=== PATIENT | female | born 1980 | race Caucasian/White ===

== ENCOUNTER 2022-11-29 09:16 | Outpatient (OUT) | payer MEDICAID, SELFPAY ==
[2022-11-29 09:48] LABS: Basophils Percent Auto 0.6 % (0.2-2.0); Hematocrit 41.5 % (36.0-48.0); Hemoglobin 13.2 g/dL (12.0-16.0); Immature Granulocytes Abs Auto 0.02 10^3/uL (0.00-0.03); Immature Granulocytes Pct Auto 0.3 % (0.0-0.5); Lymphocytes Absolute Auto 1.5 10^3/uL (1.2-3.8); Lymphocytes Percent Auto 22.6 % (20.5-60.0); Mean Corpuscular HGB Conc 31.8 g/dL (29.9-35.2); Mean Corpuscular Hemoglobin 28.3 pg (26.7-34.0); Mean Corpuscular Volume 88.9 fL (81.0-99.0); Mean Platelet Volume 9.4 fL (9.5-13.5); Monocytes Absolute Auto 0.5 10^3/uL (0.3-0.8); Monocytes Percent Auto 7.4 % (1.7-12.0); Neutrophils Absolute Auto 4.7 10^3/uL (1.4-6.5); Neutrophils Percent Auto 69.1 % (43.0-75.0); Platelet Count 250 10^3/uL (150-450); Red Blood Count 4.67 10^6/uL (4.20-5.40); Red Cell Distribution Width 14.2 % (11.0-15.0); White Blood Count 6.8 10^3/uL (4.0-11.0)
[2022-11-29 10:04] LABS: HCG Qualitative NEGATIVE (NEGATIVE)
[2022-11-29 11:01] LABS: Alanine Aminotransferase 24 U/L (14-59); Albumin Globulin Ratio 0.8; Albumin Level 3.2 g/dL (3.4-5.0); Alkaline Phosphatase 85 U/L (46-116); Aspartate Amino Transferase 18 U/L (15-37); Bilirubin Total 0.4 mg/dL (0.2-1.0); Calcium 9.3 mg/dL (8.5-10.1); Carbon Dioxide 26.9 mmol/L (21.0-32.0); Chloride 104 mmol/L (98-107); Chol HDL Ratio 4.3; Cholesterol 166 mg/dL (<=200); Estimated GFR (African America >60 (>=60); Estimated GFR (Non-African Ame >60 (>=60); Glucose 111 mg/dL (74-106); HDL Cholesterol 39 mg/dL (40-60); Potassium 4.9 mmol/L (3.5-5.1); Sodium 139 mmol/L (136-145); Thyroid Stimulating Hormone 2.019 uIU/mL (0.358-3.740); Total Protein 7.2 g/dL (6.4-8.2); Triglycerides 84 mg/dL (<=150); VLDL CHOLESTEROL 16.8 mg/dL
[2022-11-30 04:07] LABS: FSH 4.6 mIU/mL (.); Prolactin 17.8 ng/mL (4.8-23.3)
== END 2022-11-29 09:17 | disposition home or self-care (01) ==
LOC: LAB 09:21
DX: N92.6 Irregular menstruation, unspecified (principal); R63.5 Abnormal weight gain; Z13.228 Encounter for screening for other metabolic disorders; Z13.6 Encounter for screening for cardiovascular disorders; Z13.0 Encounter for screening for diseases of the blood and blood-forming organs and certain disorders involving the immune mechanism
CPT/HCPCS: 36415; 80053; 80061; 83001; 84146; 84443; 84703; 85025

== ENCOUNTER 2023-05-08 17:35 | Emergency (ER) | payer MEDICAID, SELFPAY ==
[2023-05-08 17:46] VITALS: BP 127/81; PULSE 88; RESP 16; TEMP 37.1; O2SAT 98; BMI 38.2
--- NOTE | 2023-05-08 19:12 | US_ITS ---
The [address] [address] Patient Name: SHAHLA THAPA MRN: [id number] date: 1980 Sex: F Assigned Patient Location: ER Current Patient Location: ER Accession/Order Number: [id number] Exam Date: 05/08/2023 19:40 Report Date: 05/08/2023 20:53 At the request of: ZACH ZHOU Procedure: US arterial duplex LE LT Examination:US arterial duplex LE LT INDICATION:Purple toes COMPARISON:None. TECHNIQUE:Color flow Doppler analysis of the left lower extremity was performed. FINDINGS:There is vascular flow identified in the arterial system of the left lower extremity. However, there is localized stenosis of the left proximal femoral artery of approximately 65% secondary to noncalcified atherosclerotic plaque. The waveform proximal to this level is multiphasic. The waveform distal to the area of narrowing is monophasic. There is elevated flow velocity within the area of stenosis measuring 379 cm/s. There is diminished flow velocity distal to the stenosis. US/US arterial duplex LE LT IMPRESSION: Findings of this examination are concerning for localized hemodynamically significant stenosis in the proximal left femoral artery as discussed above. The flow velocity distal to the stenosis is diminished, and there is monophasic waveform distal to the stenosis. Electronically authenticated by: JAZMYN SILVERMAN Date: 05/08/2023 20:53
--- NOTE | 2023-05-08 19:13 | XR_ITS ---
The [address] [address] Patient Name: SHAHLA THAPA MRN: [id number] date: 1980 Sex: F Assigned Patient Location: ER Current Patient Location: ER Accession/Order Number: [id number] Exam Date: 05/08/2023 18:35 Report Date: 05/08/2023 20:24 At the request of: ZACH ZHOU Procedure: XR foot LT min 3V EXAM: XR foot LT min 3V TECHNIQUE: AP, lateral and oblique views left foot HISTORY: great toe pain COMPARISON: None. FINDINGS: There is no acute fracture or dislocation. The soft tissues are unremarkable. There are no arthritic changes. XR/XR foot LT min 3V IMPRESSION: No acute findings Electronically authenticated by: NAHUN STILES Date: 05/08/2023 20:24
--- NOTE | 2023-05-08 19:14 | ED.LOWEXI1 ---
Documented by User: DARI Cordova 05/08/23 22:06 HPI - Extremity Injury (Lower) General Chief Complaint: Extremity Injury, Lower Stated Complaint: Lower extremity Pain Time Seen by Provider: 05/08/23 18:51 Source: patient Mode of arrival: walk-in History of Present Illness HPI Narrative: Patient is a 43-year-old female Referred to the emergency department from urgent care for discoloration Of the left great toe. Patient states intermittently for several weeks that she has had purple color of the left great toe. She denies any specific mechanism of injury or trauma. She states urgent care did x-rays and referred her to the ER to rule out a blood clot . She has had no open wounds, drainage. She states she does intermittently get discomfort in the leg. She has no calf swelling, thigh swelling, leg pain at this time. No medications taken prior to arrival. She is a 1 pack/day cigarette smoker. Related Data Previous Rx's Medication Instructions Recorded aspirin 81 mg capsule 81 mg PO DAILY #30 caps 05/08/23 atorvastatin 40 mg tablet 40 mg PO DAILY #30 tabs 05/08/23 clopidogrel 75 mg tablet (Plavix) 75 mg PO DAILY #30 tabs 05/08/23 Allergies Allergy/AdvReac Type Severity Reaction Status Date / Time ciprofloxacin [From Cipro] Allergy Severe Verified 05/08/23 17:43 metronidazole [From Flagyl] Allergy Severe Verified 05/08/23 17:43 Penicillins Allergy Severe Verified 05/08/23 17:43 Review of Systems ROS Constitutional Denies: fever or chills Ears, nose, mouth, and throat Denies: throat pain or nasal congestion Respiratory Denies: shortness of breath Gastrointestinal Denies: nausea or vomiting Musculoskeletal Reports: extremity pain; Denies: back pain, neck pain or extremity swelling Integumentary/Breast Denies: rash Neurological Denies: headache Endocrine Denies: excessive urination Hematologic/Lymphatic Denies: easy bruising Exam Narrative Exam Narrative: Gen.: Awake, alert, in no distress Head: Normocephalic, atraumatic ENT: Moist mucous membranes Respiratory: No respiratory distress Extremities: Moves extremities equally, No palpable DP pulse in the left foot with purpleish discoloration of the tip of the left great toe. Normal flexion and extension of the toes. Left proximal leg with calf soft and nontender. No swelling, erythema or discoloration noted of the proximal leg Psych: Normal mood and affect Neuro: No focal neuro deficit Skin: Warm, dry, intact Constitutional Vital Signs, click to edit/add: Last Vital Signs Temp 98.7 F 05/08/23 17:46 Pulse 88 05/08/23 17:46 Resp 16 05/08/23 17:46 BP 127/81 05/08/23 17:46 Pulse Ox 98 05/08/23 17:46 O2 Del Method Room Air 05/08/23 17:46 Course Vital Signs Vital signs: Vital Signs Temperature 98.7 F 05/08/23 17:46 Pulse Rate 88 05/08/23 17:46 Respiratory Rate 16 05/08/23 17:46 Blood Pressure 127/81 05/08/23 17:46 Pulse Oximetry 98 05/08/23 17:46 Oxygen Delivery Method Room Air 05/08/23 17:46 Temperature 98.7 F 05/08/23 17:46 Pulse Rate 88 05/08/23 17:46 Respiratory Rate 16 05/08/23 17:46 Blood Pressure 127/81 05/08/23 17:46 Pulse Oximetry 98 05/08/23 17:46 Oxygen Delivery Method Room Air 05/08/23 17:46 MDM - Extremity Injury (Lower) MDM Narrative Medical decision making narrative: Pulse obtained by Doppler in the left PT. Labs obtained and the patient had x-rays of the left foot in addition to an arterial ultrasound of the left leg. This ultrasound shows the patient has findings concerning for localized hemodynamically significant stenosis in the left proximal Femoral artery with flow velocity distal to the stenosis diminished. I discussed this with Dr. Webster for vascular surgery. He recommended the patient be placed on aspirin, Plavix, atorvastatin and follow closely in the office as an outpatient. He requested that the patient have CT angio of the abdomen with aortic runoff. I discussed this with the patient, she was reevaluated by Dr. Hernandez. Patient is agreeable to additional testing and an IV was placed for CT. Case is turned over to attending physician at 2205 for disposition. We will contact Dr. Webster if the patient has significant abnormalities on the CT. Medical Records Attestation: I reviewed the patient's medical records. Lab Data Attestation: I reviewed the patient's lab results. Imaging Data US arterial: Attestation: I have reviewed the pertinent imaging results. Radiologist's impression: ITS Impressions Duplex Scan Lower Extremity Artery 05/08/23 19:12 IMPRESSION: Findings of this examination are concerning for localized hemodynamically significant stenosis in the proximal left femoral artery as discussed above. The flow velocity distal to the stenosis is diminished, and there is monophasic waveform distal to the stenosis. Electronically authenticated by: JAZMYN SILVERMAN Date: 05/08/2023 20:53 Foot X-Ray 05/08/23 19:13 IMPRESSION: No acute findings Electronically authenticated by: NAHUN STILES Date: 05/08/2023 20:24 Discharge Plan Discharge Chief Complaint: Extremity Injury, Lower Clinical Impression: Arterial stenosis, Peripheral vascular disease Patient Disposition: Home, Self-Care Time of Disposition Decision: 00:14 Condition: Fair Prescriptions / Home Meds: New aspirin 81 mg capsule 81 mg PO DAILY Qty: 30 0RF clopidogrel [Plavix] 75 mg tablet 75 mg PO DAILY Qty: 30 0RF atorvastatin 40 mg tablet 40 mg PO DAILY Qty: 30 0RF Instructions: Peripheral Vascular Disease (ED) Referrals: Physician,Non-Staff, [Primary Care Provider] - 1 week Stephanie Webster MD [Physician] - As soon as possible (PVD with SFA stenosis) Stand Alone Forms: Portal Instructions Documented by User: Oly Hernandez MD 05/09/23 00:22 HPI - Extremity Injury (Lower) General Chief Complaint: Extremity Injury, Lower Stated Complaint: Lower extremity Pain Time Seen by Provider: 05/08/23 18:51 Related Data Previous Rx's Medication Instructions Recorded aspirin 81 mg capsule 81 mg PO DAILY #30 caps 05/08/23 atorvastatin 40 mg tablet 40 mg PO DAILY #30 tabs 05/08/23 clopidogrel 75 mg tablet (Plavix) 75 mg PO DAILY #30 tabs 05/08/23 Allergies Allergy/AdvReac Type Severity Reaction Status Date / Time ciprofloxacin [From Cipro] Allergy Severe Verified 05/08/23 17:43 metronidazole [From Flagyl] Allergy Severe Verified 05/08/23 17:43 Penicillins Allergy Severe Verified 05/08/23 17:43 Exam Constitutional Vital Signs, click to edit/add: Last Vital Signs Temp 98.7 F 05/08/23 17:46 Pulse 88 05/08/23 17:46 Resp 16 05/08/23 17:46 BP 127/81 05/08/23 17:46 Pulse Ox 98 05/08/23 17:46 O2 Del Method Room Air 05/08/23 17:46 Course Vital Signs Vital signs: Vital Signs Temperature 98.7 F 05/08/23 17:46 Pulse Rate 88 05/08/23 17:46 Respiratory Rate 16 05/08/23 17:46 Blood Pressure 127/81 05/08/23 17:46 Pulse Oximetry 98 05/08/23 17:46 Oxygen Delivery Method Room Air 05/08/23 17:46 Temperature 98.7 F 05/08/23 17:46 Pulse Rate 88 05/08/23 17:46 Respiratory Rate 16 05/08/23 17:46 Blood Pressure 127/81 05/08/23 17:46 Pulse Oximetry 98 05/08/23 17:46 Oxygen Delivery Method Room Air 05/08/23 17:46 MDM - Extremity Injury (Lower) MDM Narrative Medical decision making narrative: Pulse obtained by Doppler in the left PT. Labs obtained and the patient had x-rays of the left foot in addition to an arterial ultrasound of the left leg. This ultrasound shows the patient has findings concerning for localized hemodynamically significant stenosis in the left proximal Femoral artery with flow velocity distal to the stenosis diminished. I discussed this with Dr. Webster for vascular surgery. He recommended the patient be placed on aspirin, Plavix, atorvastatin and follow closely in the office as an outpatient. He requested that the patient have CT angio of the abdomen with aortic runoff. I discussed this with the patient, she was reevaluated by Dr. Hernandez. Patient is agreeable to additional testing and an IV was placed for CT. Case is turned over to attending physician at 2205 for disposition. We will contact Dr. Webster if the patient has significant abnormalities on the CT. Patient was seen and evaluated in conjunction with the physician tv production assistant. Please refer to her full H and P. The left great toe is violaceous in color, not particularly tender with some mild vascular abnormalities of the proximal phalanx laterally on the foot. Ultrasound is reviewed and the case was discussed with the vascular surgeon who recommended a CT scan with runoff. CT scans including the body of this report it does show a short segment of probable severe stenosis or less likely occlusion in the right proximal superficial femoral artery with distal reconstitution also mild stenosis of the proximal right superficial femoral artery with 3 vessel runoff to the right leg with poorly visualized posterior tibial artery. There is also moderate partial 50 percent stenosis of the proximal left superficial femoral artery with 2 vessel runoff to the left leg the anterior tibial artery appears to be occluded proximally but there is evidence of distal reconstitution of the dorsalis pedis artery. The results of the CT scan were discussed with the patient. She does appear to have blood flow to her lower extremities at this time. Her left great toe is less violaceous than it was earlier when it was 1st evaluated. She will be given a dose of Plavix and aspirin in emergency department and prescriptions were sent to the pharmacy as discussed above. She will be seen in follow-up by Dr. Webster, vascular surgery. She was encouraged return to emergency department for worsening symptoms, severe pain in her lower extremities, worsening skin changes or color changes or any concerns. I encouraged her to stop smoking immediately or at least cut down in an attempt to quit smoking ultimately and she verbalizes understanding of the fact that smoking is directly related to PVD Medical Records Medical records narrative: The [address] [address] [address] Scan Report Signed Patient: SHAHLA THAPA MR#: [id number] : 1980 Acct:[id number] Age/Sex: 43 / F ADM Date: 05/08/23 Loc: ER Attending Dr: Ordering Physician: Zach Zhou Date of Service: 05/08/23 Procedure(s): CT angio abd aorta runoff Accession Number(s): [id number] cc: Physician,Non-Staff M.D.~ The [address] [address] Patient Name: SHAHLA THAPA MRN: [id number] date: 1980 Sex: F Assigned Patient Location: ER Current Patient Location: ER Accession/Order Number: [id number] Exam Date: 05/08/2023 22:05 Report Date: 05/09/2023 00:00 At the request of: ZACH ZHOU Procedure: CT angio abd aorta runoff EXAMINATION: CT angio abd aorta runoff HISTORY: Abnormal US, left great toe discoloration. COMPARISON: Arterial duplex ultrasound 05/08/2023. TECHNIQUE: CT angiographic images of the abdomen, pelvis, and lower extremities were obtained after the administration of intravenous contrast material. Multi-planar reformatted images and maximum intensity projections were obtained. Dose reduction techniques were achieved by using automated exposure control and/or adjustment of mA and/or kV according to patient size and/or use of iterative reconstruction technique. FINDINGS: AORTA: No aneurysm or dissection. Normal renal and mesenteric vessels. ILIAC: No significant stenosis or occlusion. RIGHT LEG: There is a mild stenosis of the proximal superficial femoral artery on image 167 series 5. There is a short segment severe stenosis or occlusion of the right mid superficial femoral artery. This extends over approximately 3.5 cm. There is distal reconstitution from collateral flow. There is three-vessel runoff. This somewhat limited visualization of the proximal posterior tibial artery but the artery is visualized distally. LEFT LEG: There is a stenosis of the proximal left superficial femoral artery measuring approximately 50% on image 157 series 5. This likely corresponds to the abnormality on the ultrasound. The remainder of the superficial femoral artery, the popliteal artery appear patent. The anterior tibial artery appears occluded proximally but there is some distal reconstitution at the dorsalis pedis artery. The posterior tibial and peroneal arteries are patent. LUNG BASES: Mild bibasilar atelectasis and/or scarring. LIVER: Normal. GALLBLADDER/BILIARY SYSTEM: Status post cholecystectomy. There is mild pneumobilia in the left hepatic lobe which may be due to previous sphincterotomy. SPLEEN: Normal. PANCREAS: Normal. ADRENALS: The right adrenal gland appears normal. There is a nonspecific calcification measuring 6 mm in the left adrenal gland and the left adrenal gland appears enlarged measuring 1.9 x 1.3 cm. KIDNEYS: There is a small hypodensity in the lower pole of the left kidney suggestive of a cyst but too small to characterize. The right kidney appears normal. RETROPERITONEUM: Normal with no adenopathy. BOWEL/MESENTERY: There are postsurgical changes consistent with partial small bowel resection and anastomosis in the right abdomen. There are multiple diverticula in the descending and sigmoid colon but no acute diverticulitis. The bowel and mesentery otherwise appear unremarkable. URINARY BLADDER: No visible focal wall thickening, lesion, or calculus. REPRODUCTIVE SYSTEM: The uterus appears normal. There is a 2.2 cm right adnexal cystic lesion and a probable approximately 1.4 cm left adnexal cyst but these may represent dominant follicles. ABDOMINAL WALL: Normal. BONES: Mild to moderate degenerative changes of the lumbar spine. CT/CT angio abd aorta runoff IMPRESSION: 1. There is a short segment probable severe stenosis or less likely occlusion in the right proximal superficial femoral artery with distal reconstitution. There is also a mild stenosis in the proximal right superficial femoral artery. There is three-vessel runoff to the right leg although the posterior tibial artery is somewhat poorly visualized. 2. There is a moderate, approximately 50% stenosis of the proximal left superficial femoral artery. There is two-vessel runoff to the left leg. The anterior tibial artery appears to be occluded proximally but there is evidence of distal reconstitution of the dorsalis pedis artery. 3. Left adrenal nodule which is indeterminate although may be due to an adenoma. There is an adjacent coarse calcification which may be dystrophic in nature. A benign etiology would be favored in the absence of any history of malignancy but recommend a follow-up adrenal protocol CT in 12 months. 4. Small adnexal cystic lesions, likely dominant ovarian follicles. 5. Colonic diverticulosis. Electronically authenticated by: APOLLO CUI Date: 05/09/2023 00:00 Imaging Data US arterial: Radiologist's impression: ITS Impressions Duplex Scan Lower Extremity Artery 05/08/23 19:12 IMPRESSION: Findings of this examination are concerning for localized hemodynamically significant stenosis in the proximal left femoral artery as discussed above. The flow velocity distal to the stenosis is diminished, and there is monophasic waveform distal to the stenosis. Electronically authenticated by: JAZMYN SILVERMAN Date: 05/08/2023 20:53 Foot X-Ray 05/08/23 19:13 IMPRESSION: No acute findings Electronically authenticated by: NAHUN STILES Date: 05/08/2023 20:24 Smoking Cessation Time spent discussing smoking cessation with patient: 3 to 10 minutes Patient Acknowledges Need for Cessation: Yes Critical Care Time Critical Care Time Critical Care Time: Yes Total Critical Care Time: 40 Attestation: . Discharge Plan Discharge Chief Complaint: Extremity Injury, Lower Clinical Impression: Arterial stenosis, Peripheral vascular disease Patient Disposition: Home, Self-Care Time of Disposition Decision: 00:14 Condition: Fair Prescriptions / Home Meds: New aspirin 81 mg capsule 81 mg PO DAILY Qty: 30 0RF clopidogrel [Plavix] 75 mg tablet 75 mg PO DAILY Qty: 30 0RF atorvastatin 40 mg tablet 40 mg PO DAILY Qty: 30 0RF Instructions: Peripheral Vascular Disease (ED) Referrals: Physician,Non-Staff, MD [Primary Care Provider] - 1 week Stephanie Webster MD [Physician] - As soon as possible (PVD with SFA stenosis) Stand Alone Forms: Portal Instructions
[2023-05-08 20:01] LABS: Basophils Absolute Auto 0.1 10^3/uL (0.0-0.1); Basophils Percent Auto 0.5 % (0.2-2.0); Eosinophils Percent Auto 0.1 % (0.9-7.0); Hemoglobin 13.6 g/dL (12.0-16.0); Immature Granulocytes Abs Auto 0.04 10^3/uL (0.00-0.03); Immature Granulocytes Pct Auto 0.4 % (0.0-0.5); Lymphocytes Absolute Auto 2.7 10^3/uL (1.2-3.8); Mean Corpuscular HGB Conc 31.6 g/dL (29.9-35.2); Mean Corpuscular Volume 88.5 fL (81.0-99.0); Mean Platelet Volume 9.3 fL (9.5-13.5); Monocytes Absolute Auto 0.7 10^3/uL (0.3-0.8); Monocytes Percent Auto 6.2 % (1.7-12.0); Neutrophils Absolute Auto 7.6 10^3/uL (1.4-6.5); Neutrophils Percent Auto 68.8 % (43.0-75.0); Platelet Count 255 10^3/uL (150-450); Red Blood Count 4.86 10^6/uL (4.20-5.40); White Blood Count 11.1 10^3/uL (4.0-11.0)
[2023-05-08 20:06] LABS: Anion Gap 9.3; BUN Creatinine Ratio 9.2; C Reactive Protein 1.09 mg/dL (<=0.50); Calcium 9.1 mg/dL (8.5-10.1); Carbon Dioxide 29.9 mmol/L (21.0-32.0); Chloride 102 mmol/L (98-107); Estimated GFR (African America >60 (>=60); Estimated GFR (Non-African Ame >60 (>=60); Glucose 91 mg/dL (74-106); Potassium 4.2 mmol/L (3.5-5.1); Sodium 137 mmol/L (136-145)
[2023-05-08 20:10] LABS: Erythrocyte Sedimentation Rate 44 mm/hr (<=20)
--- NOTE | 2023-05-08 20:43 | PC.NURSE ---
left great toe dusky and cool top and bottom. Patient states that it has been that way for a few days and has been getting darker each day. She reports that she injured it a while back but does not think this would be related to that injury. She has never had a blood clot before.
--- NOTE | 2023-05-08 21:15 | CT_ITS ---
[address] [address] Patient Name: SHAHLA THAPA MRN: [id number] date: 1980 Sex: F Assigned Patient Location: ER Current Patient Location: Accession/Order Number: [id number] Exam Date: 05/08/2023 22:05 Report Date: 05/09/2023 00:00 At the request of: ZACH ZHOU Procedure: CT angio abd aorta runoff EXAMINATION: CT angio abd aorta runoff HISTORY: Abnormal US, left great toe discoloration. COMPARISON: Arterial duplex ultrasound 05/08/2023. TECHNIQUE: CT angiographic images of the abdomen, pelvis, and lower extremities were obtained after the administration of intravenous contrast material. Multi-planar reformatted images and maximum intensity projections were obtained. Dose reduction techniques were achieved by using automated exposure control and/or adjustment of mA and/or kV according to patient size and/or use of iterative reconstruction technique. FINDINGS: AORTA: No aneurysm or dissection. Normal renal and mesenteric vessels. ILIAC: No significant stenosis or occlusion. RIGHT LEG: There is a mild stenosis of the proximal superficial femoral artery on image 167 series 5. There is a short segment severe stenosis or occlusion of the right mid superficial femoral artery. This extends over approximately 3.5 cm. There is distal reconstitution from collateral flow. There is three-vessel runoff. This somewhat limited visualization of the proximal posterior tibial artery but the artery is visualized distally. LEFT LEG: There is a stenosis of the proximal left superficial femoral artery measuring approximately 50% on image 157 series 5. This likely corresponds to the abnormality on the ultrasound. The remainder of the superficial femoral artery, the popliteal artery appear patent. The anterior tibial artery appears occluded proximally but there is some distal reconstitution at the dorsalis pedis artery. The posterior tibial and peroneal arteries are patent. LUNG BASES: Mild bibasilar atelectasis and/or scarring. LIVER: Normal. GALLBLADDER/BILIARY SYSTEM: Status post cholecystectomy. There is mild pneumobilia in the left hepatic lobe which may be due to previous sphincterotomy. SPLEEN: Normal. PANCREAS: Normal. ADRENALS: The right adrenal gland appears normal. There is a nonspecific calcification measuring 6 mm in the left adrenal gland and the left adrenal gland appears enlarged measuring 1.9 x 1.3 cm. KIDNEYS: There is a small hypodensity in the lower pole of the left kidney suggestive of a cyst but too small to characterize. The right kidney appears normal. RETROPERITONEUM: Normal with no adenopathy. BOWEL/MESENTERY: There are postsurgical changes consistent with partial small bowel resection and anastomosis in the right abdomen. There are multiple diverticula in the descending and sigmoid colon but no acute diverticulitis. The bowel and mesentery otherwise appear unremarkable. URINARY BLADDER: No visible focal wall thickening, lesion, or calculus. REPRODUCTIVE SYSTEM: The uterus appears normal. There is a 2.2 cm right adnexal cystic lesion and a probable approximately 1.4 cm left adnexal cyst but these may represent dominant follicles. ABDOMINAL WALL: Normal. BONES: Mild to moderate degenerative changes of the lumbar spine. CT/CT angio abd aorta runoff IMPRESSION: 1. There is a short segment probable severe stenosis or less likely occlusion in the right proximal superficial femoral artery with distal reconstitution. There is also a mild stenosis in the proximal right superficial femoral artery. There is three-vessel runoff to the right leg although the posterior tibial artery is somewhat poorly visualized. 2. There is a moderate, approximately 50% stenosis of the proximal left superficial femoral artery. There is two-vessel runoff to the left leg. The anterior tibial artery appears to be occluded proximally but there is evidence of distal reconstitution of the dorsalis pedis artery. 3. Left adrenal nodule which is indeterminate although may be due to an adenoma. There is an adjacent coarse calcification which may be dystrophic in nature. A benign etiology would be favored in the absence of any history of malignancy but recommend a follow-up adrenal protocol CT in 12 months. 4. Small adnexal cystic lesions, likely dominant ovarian follicles. 5. Colonic diverticulosis. Electronically authenticated by: APOLLO CUI Date: 05/09/2023 00:00
--- NOTE | 2023-05-08 21:47 | PC.NURSE ---
posterior tibial pulse obtained with Doppler, unable to obtain dorsalis pedis pule with Doppler. PA notified.
[2023-05-09] MEDS: ASPIRIN 325 MG TABLET PO (00:39)
[2023-05-09] MEDS: CLOPIDOGREL BISULFATE 75 MG TABLET PO (00:39)
== END 2023-05-09 00:52 | disposition home or self-care (01) ==
PROVIDERS: Physician Assistant; Emergency Provider Emergency Medicine
DX: I70.202 Unspecified atherosclerosis of native arteries of extremities, left leg (principal); F17.210 Nicotine dependence, cigarettes, uncomplicated
CPT/HCPCS: 36415; 73630; 75635; 80048; 85025; 85652; 86140; 93926; 99285; Q9967

== ENCOUNTER 2023-05-17 09:35 | Outpatient (OUT) | payer MEDICAID, SELFPAY ==
--- NOTE | 2023-05-17 09:48 | XR_ITS ---
The [address] [address] Patient Name: SHAHLA THAPA MRN: [id number] date: 1980 Sex: F Assigned Patient Location: [facility] Current Patient Location: Accession/Order Number: [id number] Exam Date: 05/17/2023 10:10 Report Date: 05/18/2023 06:43 At the request of: MILLIE MANDEL Procedure: XR cervical spine 2-3V EXAMINATION: XR cervical spine 2-3V HISTORY: Cervicalgia M54.2 ; chronic cervical pain bilaterally, decreased range of motion, arm weakness COMPARISON: No relevant comparison available. FINDINGS: BONES: No significant spondylosis, scoliosis, fracture, or visible bony lesion. DISC SPACES: Suspect mild narrowing C6-7. Small posterior disc osteophyte complexes suspected at C4-5 and C5-6. PARASPINOUS: Negative. No paraspinous abnormality is seen. OTHER: Negative. XR/XR cervical spine 2-3V IMPRESSION: 1. Slightly limited evaluation of the lower cervical spine due to patient body habitus. 2. Suspect multilevel mild degenerative disc disease C4-5 through C6-7. Electronically authenticated by: APOLLO SOLIS Date: 05/18/2023 06:43
== END 2023-05-17 09:36 | disposition home or self-care (01) ==
LOC: RAD 09:40
PROVIDERS: Visit Provider Nurse Practitioner Family
DX: M50.321 Other cervical disc degeneration at C4-C5 level (principal); M50.323 Other cervical disc degeneration at C6-C7 level
CPT/HCPCS: 72040

== ENCOUNTER 2023-05-24 08:30 | Outpatient (OUT) | payer MEDICAID, SELFPAY ==
--- NOTE | 2023-05-24 08:30 | CA_ITS ---
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: : 1980 Requested By: MILLIE MANDEL Order Number: [id number] Reading MD: QUINTON NAVA Interpretive Statements Predominant rhythm is sinus with average rate of 88 bpm Tachycardia - max rate of 137 bpm (PSVT) - 3 episodes of PSVT w/ fastest rate of 137 bpm and longest duration of 4 beats - longest duration of 49min 2sec with rates between 109-117 bpm Bradycardia - min rate of 57 bp - longest episode of 16sec with rates between 57-58 bpm Ventricular ectopy - 4 PVC Patient triggered events:3 - associated with palpitations - associated with sinus tachycardia, PAC - associated with rates of 107, 104 and NSR Impression: Predominant rhythm is sinus with average rate of 88 bpm Fastest rate of 137 bpm (PSVT) and slowest rate of 57 bpm 4 PVC No atrial fibrillation No pauses or blocks Electronically Signed On 06-07-2023 7:04:03 EDT by QUINTON NAVA
[2023-05-24 09:16] LABS: Basophils Absolute Auto 0.1 10^3/uL (0.0-0.1); Basophils Percent Auto 0.6 % (0.2-2.0); Eosinophils Percent Auto 0.1 % (0.9-7.0); Hematocrit 41.2 % (36.0-48.0); Hemoglobin 13.2 g/dL (12.0-16.0); Immature Granulocytes Abs Auto 0.05 10^3/uL (0.00-0.03); Immature Granulocytes Pct Auto 0.5 % (0.0-0.5); Lymphocytes Absolute Auto 1.6 10^3/uL (1.2-3.8); Lymphocytes Percent Auto 15.2 % (20.5-60.0); Mean Corpuscular Volume 87.5 fL (81.0-99.0); Mean Platelet Volume 9.2 fL (9.5-13.5); Monocytes Absolute Auto 0.5 10^3/uL (0.3-0.8); Monocytes Percent Auto 4.8 % (1.7-12.0); Neutrophils Absolute Auto 8.3 10^3/uL (1.4-6.5); Neutrophils Percent Auto 78.8 % (43.0-75.0); Platelet Count 276 10^3/uL (150-450); Red Blood Count 4.71 10^6/uL (4.20-5.40); Red Cell Distribution Width 14.2 % (11.0-15.0); White Blood Count 10.5 10^3/uL (4.0-11.0)
[2023-05-24 09:54] LABS: Estimated Average Glucose 103 mg/dL; Glycohemoglobin A1C 5.2 % (4.5-6.2)
[2023-05-24 11:06] LABS: Alanine Aminotransferase 23 U/L (14-59); Albumin Globulin Ratio 0.7; Albumin Level 3.1 g/dL (3.4-5.0); Alkaline Phosphatase 102 U/L (46-116); Anion Gap 12.8; Aspartate Amino Transferase 19 U/L (15-37); BUN Creatinine Ratio 10.6; Bilirubin Total 0.4 mg/dL (0.2-1.0); Calcium 9.1 mg/dL (8.5-10.1); Carbon Dioxide 28.6 mmol/L (21.0-32.0); Chloride 101 mmol/L (98-107); Chol HDL Ratio 2.3; Cholesterol 124 mg/dL (<=200); Estimated GFR (African America >60 (>=60); Estimated GFR (Non-African Ame >60 (>=60); Free T3 2.82 pg/mL (2.18-3.98); Globulin 4.2 g/dL; Glucose 100 mg/dL (74-106); HDL Cholesterol 54 mg/dL (40-60); LDL Cholesterol Calculated 56.2 mg/dL; Potassium 4.4 mmol/L (3.5-5.1); Sodium 138 mmol/L (136-145); Thyroid Stimulating Hormone 2.669 uIU/mL (0.358-3.740); Total Protein 7.3 g/dL (6.4-8.2); Triglycerides 69 mg/dL (<=150); VLDL CHOLESTEROL 13.8 mg/dL
[2023-05-25 10:09] LABS: Insulin 28.2 uIU/mL (2.6-24.9)
== END 2023-05-24 08:31 | disposition home or self-care (01) ==
LOC: CARD 08:30
PROVIDERS: PCP Nurse Practitioner Family; Visit Provider Nurse Practitioner Family
DX: R00.2 Palpitations (principal)
CPT/HCPCS: 36415; 80053; 80061; 82306; 83036; 83525; 83540; 84436; 84443; 84481; 85025; 93242

== ENCOUNTER 2023-05-31 12:20 | Outpatient (OUT) | payer MEDICAID, SELFPAY ==
--- NOTE | 2023-05-31 13:45 | CA_ITS ---
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 PVR waveforms with delayed upstroke, blunted amplitude and loss of dicrotic notch Right: - significant pressure gradient between the thigh and calf cuff - abnormal STEVEN Left: - no significant pressure gradient between cuffs - abnormal STEVEN Impression: - significant right femoropopliteal arterial disease with severe hemodynamic impairment of the right lower extremity at rest (right STEVEN 0.42) - significant left lower extremity arterial disease with mild hemodynamic impairment of the left lower extremity at rest (left STEVEN 0.84) Electronically Signed On 05-31-2023 23:12:54 EDT by QUINTON NAVA
== END 2023-05-31 12:21 | disposition home or self-care (01) ==
LOC: CARD 12:21
PROVIDERS: PCP Nurse Practitioner Family; Visit Provider Student in an Organized Health Care Education/Training Program
DX: R93.89 Abnormal findings on diagnostic imaging of other specified body structures (principal)
CPT/HCPCS: 93923

== ENCOUNTER 2023-06-16 09:45 | Outpatient (OUT) | payer MEDICAID, SELFPAY ==
[2023-06-16 12:17] LABS: Free T3 2.62 pg/mL (2.18-3.98); Thyroid Stimulating Hormone 1.506 uIU/mL (0.358-3.740)
== END 2023-06-16 09:46 | disposition home or self-care (01) ==
LOC: LAB 09:47
PROVIDERS: PCP Nurse Practitioner Family; Visit Provider Nurse Practitioner Family
DX: E03.9 Hypothyroidism, unspecified (principal)
CPT/HCPCS: 36415; 84436; 84443; 84481

== ENCOUNTER 2023-07-04 08:11 | Outpatient (OUT) | payer MEDICAID, SELFPAY ==
--- NOTE | 2023-07-04 08:15 | CT_ITS ---
The [address] [address] Patient Name: SHAHLA THAPA MRN: [id number] date: 1980 Sex: F Assigned Patient Location: CT Current Patient Location: CT Accession/Order Number: [id number] Exam Date: 07/04/2023 08:17 Report Date: 07/04/2023 09:03 At the request of: MILLIE MANDEL Procedure: CT cervical spine wo con PROCEDURE: CT cervical spine wo con COMPARISON: None. HISTORY: Cervicalgia M54.2 TECHNIQUE: Axial, Coronal, and Sagittal images were created without and with non-ionic intravenous contrast material. Dose reduction techniques were achieved by using automated exposure control and/or adjustment of mA and/or kV according to patient size and/or use of iterative reconstruction technique. FINDINGS: CRANIOCERVICAL AREA: Normal PARASPINAL AREA: Normal with no visible mass. BONES: Normal alignment with no acute fracture or spondylolisthesis. Mild degenerative spondylosis and facet osteoarthropathy. CERVICAL DISC LEVELS: C2-C3: Early degenerative disc disease is present without focal protrusion or neural impingement. C3-C4: Early degenerative disc disease is present without focal protrusion or neural impingement. C4-C5:Mild to moderate degenerative disc disease is present without visible neural impingement. C5-C6:Mild to moderate degenerative disc disease is present without visible neural impingement. C6-C7:Early degenerative disc disease is present without focal protrusion or neural impingement. C7-T1: Early degenerative disc disease is present without focal protrusion or neural impingement. CT/CT cervical spine wo con IMPRESSION: [id number]-ug-tdoapgyd degenerative changes most significant at C4-C6 No acute fracture or spondylolisthesis Electronically authenticated by: URIEL GUILLEN Date: 07/04/2023 09:03
--- OUTSIDE RECORDS SUMMARY | 2023-07-04 08:27 | XMS_ITS | CCD ---
Author Organization [facility] Care Team Providers Care Suspender Cutter Name Role Phone DIPESH MORRIS Unavailable Unavailable TAMARA CALERO Unavailable Unavailable [place] CASING SPLITTER-STRADDLE BUG, Debo Unavailable Dennis Sarmiento MD Unavailable [phone] [place] CASING SPLITTER-STRADDLE BUG, Marcella Unavailable Tamara Calero Unavailable Dennis Sarmiento MD Unavailable [phone] [place] CASING SPLITTER-STRADDLE BUG, Marcella Unavailable [phone] NICKYC, DR SHAH Primary Care Unavailable JAGJIT, DR ISAC Elias Consulting Unavailable SAMSA, MELVA Admitting Unavailable SAMSA, MELVA Attending Unavailable LONDON, DR STEWART Consulting Unavailable SAMSA, MELVA Procedure Practitioner Unavailab claudia GUILLEN, DR TREVINO Consulting Unavailable NADERER, DR CRISTY Hopson Consulting Unavailable WINNIE FRANKLIN Consulting Unavailable SAMSA, MELVA Consulting Unavailable SHAIKH Pepito MENDOZA Consulting Unavailable MISC, DR SHAH Admitting Unavailable MISC, DR SHAH Attending Unavailable MISC, DR SHAH Primary Care Unavailable MISC, DR SHAH Consulting Unavailable MISC, DR SHAH Primary Care Unavailable CAMILLE MAGDALENO Admitting Unavailable CAMILLE MAGDALENO Attending Unavailable URIEL SPIVEY Consulting Unavailable CAMILLE MAGDALENO Consulting Unavailable MISC, DR SHAH Primary Care Unavailable PAY, DR ANDERSON Admitting Unavailable PAY, DR ANDERSON Attending Unavailable PAY, DR ANDERSON Consulting Unavailable DARI ZHOU Consulting Unavailable ART NIX Consulting Unavailable Dennis Sarmiento MD Unavailable [place] CASING SPLITTER-STRADDLE BUG, Marcella Unavailable DO Tamara Calero Primary Care Provider DO Tevin Antolin Emergency Provider MD Geo Loomis Admit Provider MD Geo Loomis Attending Provider DO Malini Tamara Primary Care Provider DO Tevin Antolin Emergency Provider MD Geo Loomis Admit Provider MD Geo Loomis Attending Provider JOHAN STEPHENS Referring Unavailable PROVIDER, UNKNOWN Admitting Unavailable PROVIDER, UNKNOWN Attending Unavailable DENNSI NICHOLE Referring Unavailable PROVIDER, UNKNOWN Admitting Unavailable PROVIDER, UNKNOWN Attending Unavailable PATIENT, SELF Referring Unavailable PROVIDER, UNKNOWN Admitting Unavailable PROVIDER, UNKNOWN Attending Unavailable Chloé WILSON-OSCAR, Marcella Unavailable [phone] Priyanka Lemon Unavailable DO Tamara Calero Primary Care Provider MD Vivek Antoine Attending Provider [phone] Tamara Calero DO Primary Care Provider Josette Art Admitting Unavailable Josette Art Attending Unavailable Tamara Calero Primary Care Unavailable Tamara Calero Primary Care Unavailable Vivek Antoine Admitting Unavailab Vivek Dong Attending Unavailab BENITO Larson Attending Unavailable STEPHANIE WEBSTER Attending Unavailable TAMARA CALERO Referring Unavailable TAMARA CALERO Primary Care Unavailable TAMARA CALERO Referring Unavailable TAMARA CALERO Primary Care Unavailable Allergies Allergy Classification Reported Allergen(s) Allergy Type Date of Onset Reaction(s) Facility (20 sources) Ciprofloxacin; Translations: [CIPROFLOXACIN] Drug Allergy 11-02-19 13 Edema [facility] Work Phone: (20 sources) metroNIDAZOLE; Translations: [METRONIDAZOLE] Drug Allergy 10-13-19 19 Edema, Other (See Comments) [facility] Other (20 sources) Penicillins; Translations: [PENICILLINS] Propensity to adverse reactions to drug 10-13-19 19 Edema, Swelling [facility] (20 sources) Penicillin G; Translations: [PENICILLIN G] Drug Allergy 10-13-19 19 swelling, Facial Swelling [facility] (1 source) Ciprofloxacin Drug Allergy 10-06-19 20 [facility] (1 source) metroNIDAZOLE Drug Allergy 10-06-19 20 [facility] (1 source) Penicillin Drug Allergy 10-06-19 20 [facility] (5 sources) Quinolones (Antibiotic); Translations: [Quinolones] Propensity to adverse reactions 05-11-19 23 Fatigued [facility] (2 sources) ciprofibrate; Translations: [CIPROFIBRATE] Drug Allergy 10-13-19 19 Facial Swelling [facility] (1 source) Ciprofloxacin Drug Allergy 05-08-19 24 [facility] (1 source) metroNIDAZOLE Drug Allergy 05-08-19 24 [facility] (1 source) Penicillin Drug Allergy 05-08-19 [facility] Medications Current Medications Medication Drug Class(es) Dates Sig (Normalized) Sig (Original) acetaminophen 325 mg oral tablet (11 sources) Start: 08-04-2021 take 2 tablets by mouth every six hours acetaminophen (TYLENOL) 325 mg tablet Take 2 Tablets by mouth every 6 (six) hours. 30 Tablet 0 08/04/2021 Active Start: 07-31-2021 take 650 mg by mouth every six hours 650 mg, Oral, Every 6 hours, First dose on 07/31/21 at 0230, Until Discontinued, Post-op Start: 09-08-2020 End: 07-31-2021 acetaminophen (TYLENOL) tabl et [id number] 200 actuat albuterol 0.09 mg/actuat metered dose inhaler (20 sources) beta2-Adrenergic Agonist Start: 04-24-2023 take 2 puff(s) by inhalation every six hours as needed Albuterol Sulfate Active INHALATION April 24, 2023 12:00am FreeTextSi puffs as needed Inhalation every 6 hrs PRN; Note: Source Status: Taking; Refills: 0; Provider: Malini Hopson Start: 05-11-2022 End: 04-24-2023 take 1 puff(s) by inhalation every four hours Albuterol Sulfate Discontinued 1 PUFF INHALATION Q4H May 11, 2022 12:00am April 24, 2023 7:54am Start: 08-01-2021 albuterol (PRO VENTIL) (2.5 MG/3ML) 0.083% nebulizer solution Start: 03-15-2018 take 2 puff(s) by in halation every six hours as needed Albuterol Sulfate HFA 108 (90 Base) MCG/ACT 2 puffs as needed Inhalation every 6 hrs PRN for 30 days Mar, Active Start: 03-15-2018 take 2 puff(s) by in halation every six hours as needed Albuterol Sulfate HFA 108 (90 Base) MCG/ACT 2 puffs as needed Inhalation every 6 hrs PRN for 30 days Mar, Active Start: 03-15-2018 take 2 puff(s) by in halation every six hours as needed Albuterol Sulfate HFA 108 (90 Base) MCG/ACT 2 puffs as needed Inhalation every 6 hrs PRN for 30 days Mar, Active take 2 puff(s) by in halation every six hours as needed for wheezing albuterol (PROVENTIL HFA;VENTOLIN HFA) 90 mcg/actuation inhaler Inhale 2 puffs every 6 (six) hours as needed for wheezing. 0 Active aspirin 81 mg delayed release oral tablet (4 sources) Platelet Aggregation Inhibitor, Nonsteroidal Anti-inflammatory Drug Start: 05-18-2023 take 1 tablet by mouth once daily aspirin 81 mg 1 tablet Orally Once a day 90 tablet 3 05/18/2023 Active Start: 07-07-2020 End: 05-18-2023 take 1 tablet by mouth every twenty-four hours Aspirin 81 MG 1 tablet Orally Once a day for 90 days July, Not-Taking calcium carbonate 500 mg chewable tablet (1 source) Start: 08-01-2021 calcium carbonate (TUMS) 500 MG tablet CHEW clonazePAM 0.5 mg oral tablet (18 sources) Benzodiazepine Start: 06-23-2021 take 1 tablet by mouth once daily for anxiety clonazePAM (KlonoPIN) 0.5 MG tablet take 1 tablet by mouth once daily if needed for anxiety 0 06/23/2021 Active clopidogrel 75 mg oral tablet (1 source) P2Y12 Platelet Inhibitor Start: 05-18-2023 take 1 tablet by mouth in the morning clopidogreL (PLAVIX) 75 mg tablet Take 1 tablet (75 mg total) by mouth in the morning. 30 tablet 12 05/18/2023 Active docusate sodium 100 mg oral tablet (4 sources) Start: 04-24-2023 take 100 mg by mouth twice daily Docusate Sodium Active 100 MG PO Twice daily 60 30 April 24, 2023 12:00am Start: 11-22-2022 take 1 capsule by [facility] every twenty-four hours Colace 100 MG 1 capsule as needed Orally Once a day for 30 days Nov, Active doxycycline monohydrate 100 mg oral capsule (2 sources) Tetracycline-class Drug Start: 04-15-2023 take 1 capsule by mouth every twelve hours Doxycycline Monohydrate 100 MG 1 capsule Orally every 12 hrs for 10 days Apr, Active Start: 12-20-2022 take 1 capsule by [facility] every twelve hours Doxycycline Monohydrate 100 MG 1 capsule Orally every 12 hrs for 10 days Dec, Active ferrous sulfate 325 mg delayed release oral tablet (3 sources) Start: 08-20-2021 take 1 tablet by mouth every other day Ferrous Sulfate 325 (65 Fe) MG 1 tablet Orally Every other day for 90 day(s) Aug, Active fluticasone propionate 0.05 mg/actuat metered dose nasal spray (1 source) Corticosteroid Start: 12-20-2022 take 1 spray(s) nasal route once daily Flonase Allergy Relief 50 MCG/ACT 1 spray in each nostril Nasally Once a day for 14 day(s) Dec, Active gabapentin 400 mg oral capsule (20 sources) Anti-epileptic Agent Start: 04-24-2023 take 2 capsules by mouth three times daily Gabapentin Active 300 MG PO Three times daily April 24, 2023 3:32pm 2 capsules TID Start: 04-24-2023 End: 04-24-2023 Gabapentin Discontinued MG P O April 24, 2023 12:00am April 24, 2023 3:36pm FreeTextSig: Oral; Note: Source Status: Taking; Qty: 90 Capsule; Provider: Malini Posada ( ) Start: 05-29-2022 End: 04-24-2023 take 400 mg by mouth three times daily Gabapentin Discontinued 400 MG PO Three times daily May 28, 2022 11:00pm April 24, 2023 7:55am Start: 05-15-2022 End: 05-29-2022 take 300 mg by mouth three times daily Gabapentin Discontinued 300 MG PO Three times daily May 15, 2022 12:00am May 29, 2022 9:26am Start: 08-02-2021 gabapentin (NE URONTIN) capsule Start: 07-30-2021 End: 07-30-2021 gabapentin (NEURONTIN) capsu le take 1 tablet by claudine every eight hours Gabapentin 600 MG 1 tablet Orally Three times a day for 30 days Active hydroCHLOROthiazide 12.5 mg / olmesartan medoxomil 20 mg oral tablet (2 sources) Thiazide Diuretic, Angiotensin 2 Receptor Jordi Start: 04-24-2023 take 1 tablet by mouth once daily Olmesartan-Hydrochlorothiazide Active 1 TAB PO Daily April 24, 2023 12:00am hydrOXYzine pamoate 50 mg oral capsule (6 sources) Antihistamine Start: 04-24-2023 End: 04-24-2023 take 1 capsule by mouth three times daily Hydroxyzine Pamoate Active 50 MG PO Three times daily April 24, 2023 3:36pm FreeTextSig: take 1 capsule by mouth three times a day Oral; Note: Source Status: Taking; Refills: 0; Qty: 90 Each; Provider: SUSHANT BRISENO take 1 capsule by mo [facility] three times daily hydrOXYzine Pamoate 50 MG take 1 capsule by mouth three times a day Oral for 30 Days Active take 1 tablet by mouth every six hours hydrOXYzine HCl 50 MG 1 tablet as needed Orally every 6 hrs Active ibuprofen 800 mg oral tablet (1 source) Nonsteroidal Anti-inflammatory Drug Start: 07-20-2022 take 1 tablet by mouth every six hours as needed for pain ibuprofen (MOTRIN) 800 mg tablet Take 1 tablet (800 mg total) by mouth every 6 (six) hours as needed for pain. 30 tablet 0 07/20/2022 Active 24 hr levomilnacipran 40 mg extended release oral capsule (18 sources) Serotonin and Norepinephrine Reuptake Inhibitor Start: 04-24-2023 take 1 capsule by mouth once daily Levomilnacipran Active 40 MG PO Daily April 24, 2023 12:00am FreeTextSig: Oral; Note: Source Status: Taking; Qty: 30 Capsule; Provider: Malini Posada ( ) Start: 05-29-2022 End: 04-24-2023 take 80 mg by mouth once daily Levomilnacipran Discont inued 80 MG PO Daily May 28, 2022 11:00pm April 24, 2023 7:55am Start: 05-15-2022 End: 05-29-2022 take 1 capsule by mouth once daily Levomilnacipran (Fetzima) 40 mg Capsule,Extended Release 24 Hr Discontinued 40 MG PO Daily May 15, 2022 12:00am May 29, 2022 9:25am take 1 capsule by [facility] every twenty-four hours in the morning levomilnacipran (FETZIMA) 80 mg capsule,extended release 24 hr Take 120 mg by mouth in the morning. 0 Active melatonin 3 mg oral tablet (3 sources) Start: 04-24-2023 take 3 mg by mouth once daily at bedtime Melatonin Active 3 MG PO Daily at bedtime April 24, 2023 12:00am RA Melatonin 3 M G Oral for 30 Days Not-Taking/PRN methocarbamol 750 mg oral tablet (3 sources) Muscle Relaxant Start: 07-31-2021 End: 08-11-2021 take 1 tablet by mouth four times daily as needed methocarbamol (ROBAXIN) 750 MG tablet Take 1 Tablet by mouth 4 times daily as needed for up to 7 days. 28 Tablet 0 08/04/2021 08/11/2021 Active mirtazapine 15 mg oral tablet (3 sources) Start: 04-24-2023 take 7.5 mg by mouth once daily at bedtime Mirtazapine (Remeron) 15 mg tablet Active 7.5 MG PO Daily at bedtime April 24, 2023 12:00am take 1 tablet by mouth at bedtim e mirtazapine (REMERON) 7.5 mg tablet 1 tablet at bedtime Orally for 30 days 0 Active naloxone hydrochloride 40 mg/ml nasal spray (9 sources) Opioid Antagonist Start: 08-04-2021 naloxone 4 m g/0.1 mL nasal liquid Use 1 [place] in one nostril (alternate sides) as needed for Drug Overdose for up to 1 dose. Every 2-3 mins. until help arrives. 1 Each 1 08/04/2021 Active Start: 07-31-2021 0.4 mg, Intrav enous Push, PRN, Starting on 07/31/21 at 0223, Until Discontinued, Respiratory Rate Less Than 8 for adults and less than 12 for Peds or for suspected overdose, Post-op naltrexone 380 mg injection (12 sources) Opioid Antagonist Start: 04-24-2023 Naltrexone M icrospheres (Vivitrol) 380 mg suspension,extended rel recon Active 380 MG IM April 24, 2023 12:00am FreeTextSig: Intramuscular; Note: Source Status: Taking; Qty: 1 Kit; Provider: Malini Posada ( ) Start: 05-29-2022 End: 04-24-2023 take 1 tablet by mouth in the morning naltrexone (REVIA) 50 mg tablet Take 1 tablet (50 mg total) by mouth in the morning. 0 05/29/2022 Active VivitroL 380 mg suspension,extended rel recon 1 injection Intramuscular once monthly for 30 days 0 Active Vivitrol 380 MG Intramuscular for 30 Days Active OLANZapine 10 mg oral tablet (15 sources) Atypical Antipsychotic Start: 05-25-2022 End: 04-24-2023 OLANZapine (ZyPREXA) 10 mg tablet Take 1 tablet (10 mg total) by mouth as needed. 0 06/14/2022 Active Start: 05-15-2022 End: 05-25-2022 take 5 mg by mouth every six hours Olanzapine Discontinued 5 MG PO Q6H 30 May 15, 2022 12:00am May 24, 2022 11:34pm olmesartan medoxomil 20 mg oral tablet (16 sources) Angiotensin 2 Receptor Jordi Start: 05-18-2022 End: 04-24-2023 take 1 tablet by mouth in the morning olmesartan (BENICAR) 20 mg tablet Take 1 tablet (20 mg total) by mouth in the morning. 0 05/19/2022 Active omeprazole 40 mg delayed release oral capsule (20 sources) Proton Pump Inhibitor Start: 03-31-2021 End: 04-24-2023 take 1 capsule by mouth once daily Omeprazole Active 40 MG PO Daily April 24, 2023 12:00am FreeTextSi capsule 30 minutes before morning meal Orally Once a day; Note: Source Status: Taking; Refills: 1; Provider: Malini Hopson 2 ml ondansetron 2 mg/ml injection (1 source) Serotonin-3 Receptor Antagonist Start: 07-31-2021 ondansetron (ZOFRAN) 4 MG/2ML injection oxyCODONE hydrochloride 5 mg oral tablet (4 sources) Opioid Agonist Start: 08-02-2021 End: 08-11-2021 take 1 tablet by mouth every eight hours as needed oxyCODONE 5 MG immediate release tablet Indications: Postoperative pain Take 1 Tablet by mouth every 8 hours as needed for up to 7 days. 20 Tablet 0 08/04/2021 08/11/2021 Active promethazine hydrochloride 1.25 mg/ml oral solution (1 source) Phenothiazine Start: 07-31-2021 Promethazine HCl (PHENERGAN) 6.25 MG/5ML oral solution SOLN 72 hr scopolamine 0.0139 mg/hr transdermal system (1 source) Anticholinergic Start: 07-30-2021 scopolamine (TRANSDERM-SCOP) 1 MG/3DAYS patch sucralfate 100 mg/ml oral suspension (1 source) Aluminum Complex Start: 07-31-2021 sucralfate (CARAFATE) 1 GM/10ML oral suspension traZODone hydrochloride 100 mg oral tablet (20 sources) Serotonin Reuptake Inhibitor Start: 04-24-2023 take 1 tablet by mouth once daily at bedtime Trazodone Active 100 MG PO Daily at bedtime April 24, 2023 12:00am FreeTextSi tablet at bedtime Orally Once a day; Note: Source Status: Taking; [facility] Start: 07-31-2021 take 200 mg by mouth at bedtim e 200 mg, Oral, AT BEDTIME, First dose on 07/31/21 at 2200, Until Discontinued, Post-op Start: 03-31-2021 End: 04-24-2023 take 200 mg by mouth at bedtime Trazodone Discontinued 200 MG PO Bedtime May 11, 2022 12:00am April 24, 2023 7:55am take 4 tablets by mo uth once daily traZODone (DESYREL) 50 mg tablet Take 4 tablets (200 mg total) by mouth nightly. 0 Active take 2 tablets by mo uth every twenty-four hours traZODone HCl 100 MG 2 tablet at bedtime Orally Once a day Active take 1 tablet by claudine th every twenty-four hours traZODone HCl 100 MG 1 tablet at bedtime Orally Once a day Active Tylenol Extra Strength 500 MG (13 sources) take 1 tablet by claudine th every six hours as needed Tylenol Extra Strength 500 MG 1 tablet as needed Orally every 6 hrs Active Completed/Discontinued Medications Medication Drug Class(es) Dates Sig (Normalized) Sig (Original) acetaminophen 325 mg / HYDROcodone bitartrate 5 mg oral tablet (4 sources) Opioid Agonist Start: 11-10-2016 End: 03-31-2021 take 1-2 tablets by mouth every four hours as needed for pain Hydrocodone-Acetam inophen ([facility]) 5-325 mg tablet Discontinued 1 TAB PO Q4H November 10, 2016 March 31, 2021 11:23am 1-2 Tabs Q 4 hours PRN for pain acetaminophen 325 mg / oxyCODONE hydrochloride 5 mg oral tablet (4 sources) Opioid Agonist Start: 04-02-2021 End: 05-11-2022 take 1 tablet by mouth every four hours Oxycodone-Acetamin ophen Discontinued 1 TAB PO Q4H 0 April 02, 2021 May 11, 2022 12:32am brexpiprazole 2 mg oral tablet (20 sources) Atypical Antipsychotic Start: 03-31-2021 End: 05-11-2022 take 1 tablet by mouth once daily in the evening Brexpiprazole (Rexulti) 2 mg Tablet Discontinued 2 MG PO Every evening March 31, 2021 12:00am May 11, 2022 12:32am take 1 tablet by claudine th every twenty-four hours Rexulti 1 MG 1 tablet Orally Once a day Active calcium chloride 0.0014 meq/ml / potassium chloride 0.004 meq/ml / sodium chloride 0.103 meq/ml / sodium lactate 0.028 meq/ml injectable solution (1 source) Start: 07-31-2021 End: 08-03-2021 Intravenous, at 75 mL/hr, CONTINUOUS, Starting on 07/31/21 at 0230, Until 08/03/21 at 1211 celecoxib 200 mg oral capsule (1 source) Nonsteroidal Anti-inflammatory Drug Start: 07-30-2021 End: 08-01-2021 celecoxib (CeleBREX) capsule cholecalciferol 0.05 mg oral capsule (3 sources) Vitamin D Start: 05-15-2022 End: 04-24-2023 take 50 ug by mouth once daily Cholecalciferol (Vitamin D3) Discontinued 50 MCG PO Daily May 15, 2022 12:00am April 24, 2023 7:55am 50 ml clindamycin 18 mg/ml injection (1 source) Lincosamide Antibacterial Start: 07-30-2021 End: 07-31-2021 clindamycin 900 mg in dextrose 5 % 50 mL (CLEOCIN) 900 MG/50ML in dextrose 50 mL ivpb Diatrizoate Meglumine & Sodium 66-10 % SOLN (1 source) Start: 08-01-2021 End: 08-01-2021 Diatrizoate Meglumine & Sodium 66-10 % SOLN 0.4 ml enoxaparin sodium 100 mg/ml prefilled syringe (5 sources) Low Molecular Weight Heparin Start: 04-02-2021 End: 05-11-2022 Enoxaparin (Lovenox) 40 mg/0.4 mL Syringe Discontinued 40 MG SUBCUT DAILY@1000 0 April 02, 2021 12:00am May 11, 2022 12:32am Ergocalciferol (12 sources) Provitamin D2 Compound Start: 08-04-2020 take 1 tablet by mouth once daily Ergocalciferol 50 MCG (2000 UT) 1 tablet Orally Once a day for 90 days Aug, Not-Taking Start: 08-04-2020 take 1 tablet by claudine th once daily Ergocalciferol 50 MCG (2000 UT) 1 tablet Orally Once a day for 90 days Aug, Active Start: 08-04-2020 take 1 tablet by claudine th once daily Ergocalciferol 50 MCG (2000 UT) 1 tablet Orally Once a day for 90 day(s) Aug, Active ertapenem 1000 mg injection (4 sources) Penem Antibacterial Start: 04-02-2021 End: 05-11-2022 take 1 g intravenously every twenty-four hours Ertapenem Discontinued 1 GM IV Q24H 0 April 02, 2021 12:00am May 11, 2022 12:32am esomeprazole 40 mg delayed release oral capsule (1 source) Proton Pump Inhibitor Start: 07-31-2021 take 40 mg by mouth once daily 30 minutes before breakfast 40 mg, Oral, DAILY 30 MIN BEFORE BREAKFAST, First dose on 07/31/21 at 0830, Until Discontinued, Post-op FLUoxetine 40 mg oral capsule (20 sources) Serotonin Reuptake Inhibitor Start: 05-11-2022 End: 05-15-2022 take 80 mg by mouth once daily Fluoxetine Discontinued 80 MG PO Daily May 11, 2022 12:00am May 15, 2022 11:11am Start: 06-07-2021 take 1 capsule by mo [facility] once daily fluoxetine (PROZAC) 20 MG capsule Take 20 mg by mouth daily. 0 06/26/2021 Active Start: 03-31-2021 End: 05-11-2022 take 1 capsule by mouth once daily in the morning Fluoxetine (Prozac) 10 mg Capsule Discontinued 10 MG PO Every morning March 31, 2021 12:00am May 11, 2022 12:31am 1 ml heparin sodium, porcine 5000 unt/ml prefilled syringe (1 source) Unfractionated Heparin, Anti-coagulant Start: 07-30-2021 End: 07-30-2021 heparin (porcine) 5,000 units/mL injection HYDROmorphone (1 source) Opioid Agonist Start: 07-30-2021 End: 08-02-2021 iohexol (OMNIPAQUE) 300 MG/ML injection (1 source) Start: 08-01-2021 End: 08-01-2021 iohexol (OMNIPAQUE) 300 MG/ML injection losartan potassium 50 mg oral tablet (20 sources) Angiotensin 2 Receptor Jordi Start: 03-31-2021 End: 05-11-2022 take 50 mg by mouth once daily in the morning Losartan Discontinued 50 MG PO Every morning March 31, 2021 12:00am May 11, 2022 12:32am 100 ml magnesium sulfate 10 mg/ml injection (2 sources) Start: 08-03-2021 End: 08-03-2021 magnesium sulfate in dextrose 5 % 100 mL ivpb 1,000 mg 100 mL Start: 07-31-2021 End: 07-31-2021 magnesium sulfate 4 GM/100ML in 100 mL ivpb nicotine 2 mg chewing gum (11 sources) Cholinergic Nicotinic Agonist Start: 05-15-2022 End: 04-24-2023 Nicotine (Polacrilex) Discontinued 2 MG BUCCAL Every 2 hours 60 May 15, 2022 12:00am April 24, 2023 7:55am Start: 07-31-2021 nicotine (SCOTTY DERM CQ) 14 mg/24HR patch microencapsulated potassium chloride 20 meq extended release oral tablet (1 source) Start: 08-03-2021 End: 08-03-2021 potassium chloride SA (K-DUR) controlled release tablet Problems Active Problems Problem Classification Problem Date Documented Da te Episodic/Chronic Abdominal pain (20 sources) Right upper quadrant pain; Translations: [Right upper quadrant pain] Onset: 2 04-25-2021 Episodic Anxiety disorders (20 sources) Severe anxiety (panic); Translations: [Panic disorder [episodic paroxysmal anxiety]] Onset: 9 Resolved: 2 Chronic Aortic and peripheral arterial embolism or thrombosis (2 sources) Atheromatous embolus of lower limb; Translations: [Atheroembolism of left lower extremity] Onset: 4 05-18-2023 Chronic Asthma (20 sources) Mild intermittent asthma; Translations: [Mild intermittent asthma, uncomplicated] Onset: 9 Resolved: 2 Chronic Biliary tract disease (2 sources) Obstruction of bile duct; Translations: [Obstruction of bile duct] Onset: 2 Chronic Biliary tract disease (20 sources) Cyst of gallbladder; Translations: [Other specified diseases of gallbladder] Onset: 2 04-25-2021 Episodic Cardiac dysrhythmias (2 sources) Palpitations; Translations: [Palpitations] Onset: 4 Episodic Chronic obstructive pulmonary disease and bronchiectasis (1 source) Chronic obstructive pulmonary disease, unspecified; Translations: [COPD UNSPECIFIED] Onset: 3 Chronic Deficiency and other anemia (1 source) Iron deficiency anemia; Translations: [Iron deficiency anemia, unspecified] Episodic Digestive congenital anomalies (19 sources) Congenital anomaly of bile ducts; 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] 04-25-2021 Chronic Diseases of white blood cells (4 sources) Leukocytosis; Translations: [Elevated white blood cell count, unspecified] 03-31-2021 Chronic Esophageal disorders (20 sources) Gastroesophageal reflux disease without esophagitis; Translations: [Gastro-esophageal reflux disease without esophagitis] Onset: 2 Resolved: 2 04-25-2021 Chronic Essential hypertension (20 sources) Hypertensive disorder; Translations: [Essential (primary) hypertension] Onset: 9 Resolved: 2 04-25-2021 Chronic Menstrual disorders (6 sources) Irregular periods; Translations: [Irregular menstruation, unspecified] Chronic Miscellaneous mental health disorders (18 sources) Psychophysiologic insomnia; Translations: [Psychophysiologic insomnia] 04-14-2023 Chronic Mood disorders (12 sources) Major depressive disorder; Translations: [Major depressive disorder, single episode, unspecified] 05-11-2022 Chronic Nutritional deficiencies (20 sources) Vitamin D deficiency; Translations: [Vitamin D deficiency, unspecified] Onset: 2 Resolved: 2 Chronic Other aftercare (1 source) Surgical follow-up; Translations: [Encounter for follow-up examination after completed treatment for conditions other than malignant neoplasm] Episodic Other aftercare (1 source) Other intermediate (current) drug therapy; Translations: [OTH FPC CURRENT DRUG THERAPY] Onset: 3 Episodic Other aftercare (1 source) 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 (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; 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] Onset: 3 Episodic Other and ill-defined heart disease (15 sources) Cardiomegaly; Translations: [Cardiomegaly] Onset: 4 Chronic Other and ill-defined heart disease (3 sources) Cardiomegaly; Translations: [LVH (left ventricular hypertrophy)] Onset: 2 Resolved: 2 Chronic Other and ill-defined heart disease (1 source) Left ventricular hypertrophy; Translations: [Cardiomegaly] 04-14-2023 Chronic Other circulatory disease (3 sources) Raynaud's phenomenon; Translations: [Raynaud's syndrome without gangrene] 04-14-2023 Chronic Other circulatory disease (1 source) Raynaud's syndrome without gangrene Chronic Other circulatory disease (1 source) Elevated blood-pressure reading, without diagnosis of hypertension Episodic Other endocrine disorders (17 sources) Mass of left adrenal gland; Translations: [Disorder of adrenal gland, unspecified] Chronic Other gastrointestinal disorders (19 sources) Irritable bowel syndrome; Translations: [Mixed irritable bowel syndrome] Onset: 3 04-14-2023 Chronic Other gastrointestinal disorders (5 sources) Constipation; Translations: [Constipation, unspecified] Episodic Other gastrointestinal disorders (2 sources) Constipation, unspecified; Translations: [Constipation, unspecified] Episodic Other liver diseases (20 sources) Disease of liver; Translations: [Other specified diseases of liver] Onset: 2 04-25-2021 Chronic Other liver diseases (17 sources) Liver cyst; Translations: [Other specified diseases of liver] Onset: 2 Chronic Other liver diseases (1 source) Other specified diseases of liver; Translations: [Other specified diseases of liver] Onset: 2 Chronic Other liver diseases (4 sources) Enzyme level - finding; Translations: [Transaminasemia] 03-31-2021 Episodic Other lower respiratory disease (2 sources) Other forms of dyspnea Episodic Other nervous system disorders (17 sources) Carpal tunnel syndrome; Translations: [Carpal tunnel syndrome, bilateral upper limbs] Chronic Other nervous system disorders (1 source) Postoperative pain ; Translations: [Other acute postprocedural pain] Episodic Other nutritional; endocrine; and metabolic disorders (19 sources) Obesity; Translations: [Obesity, unspecified] Onset: 2 04-25-2021 Chronic Other nutritional; endocrine; and metabolic disorders (2 sources) Body mass index 30+ - obesity; Translations: [Body mass index (BMI) 32.0-32.9, adult] Onset: 1 Chronic Other nutritional; endocrine; and metabolic disorders (1 source) Obesity, unspecified; Translations: [OBESITY UNSPECIFIED] Onset: 2 Chronic Other nutritional; endocrine; and metabolic disorders (1 source) Body mass index (BMI) 36.0-36.9, adult; Translations: [BODY MASS INDEX BMI 36.0-36.9 ADULT] Onset: 2 Chronic Other nutritional; endocrine; and metabolic disorders (1 source) Body mass index 25-29 - overweight; Translations: [Body mass index (BMI) 29.0-29.9, adult] Episodic Other nutritional; endocrine; and metabolic disorders (1 source) Abnormal weight gain Episodic Other screening for suspected conditions (not mental disorders or infectious disease) (3 sources) Computed tomography result abnormal; Translations: [Abnormal findings on diagnostic imaging of other specified body structures] Onset: 4 05-18-2023 Chronic Other screening for suspected conditions (not mental disorders or infectious disease) (9 sources) EKG ST segment changes; Translations: [Abnormal electrocardiogram [ECG] [EKG]] Onset: 1 03-31-2021 Episodic Other upper respiratory infections (1 source) Acute maxillary sinusitis, unspecified Episodic Peripheral and visceral atherosclerosis (2 sources) Intermittent claudication; Translations: [Peripheral vascular disease, unspecified] Onset: 4 05-18-2023 Chronic Residual codes; unclassified (18 sources) Obstructive sleep apnea syndrome; Translations: [Obstructive sleep apnea (adult) (pediatric)] 04-14-2023 Chronic Residual codes; unclassified (2 sources) Obstructive sleep apnea (adult) (pediatric); Translations: [OBSTRUCTIVE SLEEP APNEA] Onset: 2 Resolved: 2 Chronic Residual codes; unclassified (19 sources) Feeding problem; Translations: [Other specified health status] 04-27-2021 Episodic Schizophrenia and other psychotic disorders (1 source) Schizoaffective disorder, unspecified; Translations: [SCHIZOAFFECTIVE DISORDER UNS] Onset: 2 Chronic Skin and subcutaneous tissue infections (1 source) Cellulitis of left toe Episodic Substance-related disorders (20 sources) Nicotine dependence; Translations: [Nicotine dependence, cigarettes, 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 Suicide and intentional self-inflicted injury (8 sources) Suicidal thoughts; Translations: [Suicidal ideations] 05-11-2022 Episodic Unclassified (1 source) NO SHOW Unclassified (2 sources) COUGH, UNSPECIFIED; Translations: [COUGH, UNSPECIFIED] Onset: 3 Unclassified (4 sources) CONTACT W/AND (SUSP) EXPOS COVID-19; Translations: [CONTACT W/AND (SUSP) EXPOS COVID-19] Onset: 2 Unclassified (1 source) Pain in left toe(s); Translations: [Pain in left toe(s)] Onset: 4 Unclassified (1 source) Annual Exam Onset: 4 Unclassified (1 source) Hospital Follow-up Onset: 4 Urinary tract infections (5 sources) Urinary tract infection, site not specified; Translations: [Urinary tract infectious disease] Onset: 2 03-31-2021 Episodic Viral infection (1 source) Viral infection, unspecified; Translations: [Viral infection, unspecified] Onset: 9 Episodic Past or Other Problems Problem Classification Problem Date Documented Date Episodic/Chronic Bacterial infection; unspecified site (1 source) Unspecified Escherichia coli [E. coli] as the cause of diseases classified elsewhere; Translations: [UNS E COLI CAUSE DX CLASS ELSEWHERE] Onset: 05-03-2021 Episodic Complications of surgical procedures or medical care (19 sources) Post-ERCP acute pancreatitis; Translations: [Other postprocedural complications and disorders of digestive system] Onset: 04-23-2021 04-25-2021 Episodic Fluid and electrolyte disorders (1 source) Hypokalemia; Translations: [HYPOKALEMIA] Onset: 05-03-2021 Episodic Mood disorders (1 source) Mood disorders Onset: 05-31-2020 05-31-2020 Nausea and vomiting (20 sources) Nausea and vomiting; Translations: [Nausea with vomiting, unspecified] Onset: 03-23-2021 04-25-2021 Episodic Nutritional deficiencies (1 source) Iron deficiency Onset: 08-20-2021 Resolved: 08-20-2021 Episodic Other connective tissue disease (1 source) Pain in right lower leg Onset: 06-07-2021 Resolved: 06-07-2021 Episodic Other female genital disorders (1 source) History of abnormal cervical Papanicolaou smear ; Translations: [Personal history of other diseases of the female genital tract] Onset: 06-22-2022 06-22-2022 Episodic Pancreatic disorders (not diabetes) (1 source) Other acute pancreatitis without necrosis or infection; Translations: [OTH ACUTE PANCREATITIS WO NECRS/INF] Onset: 05-03-2021 Episodic Residual codes; unclassified (20 sources) Past history of procedure; Translations: [Other specified postprocedural states] Onset: 04-23-2021 04-25-2021 Episodic Residual codes; unclassified (1 source) Other specified postprocedural states; Translations: [OTH SPECIFIED POSTPROCEDURAL STATES] Onset: 05-03-2021 Episodic Residual codes; unclassified (1 source) Patient's noncompliance with other medical treatment and regimen; Translations: [PT NONCOMPLIANCE OTH MED TX AND REGIMEN] Onset: 05-03-2021 Episodic Screening and history of mental health and substance abuse codes (1 source) H/O: depression; Translations: [Personal history of other mental and behavioral disorders] Onset: 10-23-2018 10-23-2018 Episodic Septicemia (except in labor) (20 sources) Sepsis; Translations: [Sepsis, unspecified organism] Onset: 04-16-2021 Resolved: 05-29-2021 05-29-2021 Episodic Unclassified (1 source) COUGH, UNSPECIFIED; Translations: [COUGH, UNSPECIFIED] Onset: 03-13-2022 Unclassified (1 source) CONTACT W/AND (SUSP) EXPOS COVID-19; Translations: [CONTACT W/AND (SUSP) EXPOS COVID-19] Onset: 06-14-2021 Unclassified (1 source) Onset: 06-22-2022 06-22-2022 Viral infection (2 sources) COVID-19; Translations: [COVID-19] Onset: 03-15-2022 Results Test Name Value Interpretation Reference Range Facility XR foot LT min 3V*on 024 XR foot LT min 3V* [facility] [address] XRay Report Signed Patient: Shahla Thapa MR#: [id number] : 1980 Acct:[id number] Age/Sex: 43 / F ADM Date: 05/08/23 Loc: [facility]: Josette Art RN ENT-C Copies to: FARNAZ Yu Ordering Provider: FARNAZ Yu Date of Service: 05/08/23 XR/XR foot LT min 3V*: M79.675 - Pain in left toe(s) LEFT FOOT - 3 views CLINICAL DATA: Plantar pain and bruising at the left first toe for the past 2 months. No injury. COMPARISON: None AP, lateral and oblique views were obtained. There is no evidence of fracture or dislocation. No bony destruction it is noted. There is a tiny plantar calcaneal spur. No other significant degenerative change is visualized. There are no significant soft tissue abnormalities. XR/XR foot LT min 3V* IMPRESSION: NO ACUTE BONY FINDINGS. Impression dictated by: Lula Cuevas M.D.05/08/2023 4:50 PM Dictation Location: [place] [address] Transcribed By: [facility] 05/08/23 1650 Dictated By: Lula Cuevas MD 05/08/23 1647 Signed By: 05/08/23 1650 Normal [facility] Alanine aminotransferase [En zymatic activity/volume] in Serum or PlasmaOrdered By: Antolin Abarca on 05-24-2022 ALT [Catalytic activity/Vol] 15 U/L 7-52 [facility] Albumin [Mass/volume] in Ser um or Plasma by Bromocresol green (BCG) dye binding methoOrdered By: Antolin Abarca on 05-24-2022 Albumin BCG dye [Mass/Vol] 4.0 g/dL 3.5-5.7 [facility] Alkaline phosphatase [Enzyma tic activity/volume] in Serum or PlasmaOrdered By: Antolin Abarca on 05-24-2022 ALP [Catalytic activity/Vol] 61 U/L 34-104 [facility] Amphetamine Screen Ql (U)Ord ered By: Antolin Abarca on 05-24-2022 Amphetamines Ql (U) Negative Negative [facility] Aspartate aminotransferase [ Enzymatic activity/volume] in Serum or PlasmaOrdered By: Antolin Abarca on 05-24-2022 AST [Catalytic activity/Vol] 19 U/L 13-39 [facility] Automated epithelial cells c ount in urine sediment (number/area)Ordered By: Antolin Abarca on 05-24-2022 Epithelial cells Auto (Urine sed) [#/Area] Rare [HPF] 0-2 [facility] Automated erythrocytes count in urine sediment (number/area)Ordered By: Antolin Abarca on 05-24-2022 RBC Auto (Urine sed) [#/Area] 1-2 [HPF] 0-4 [facility] Automated leukocytes count i n urine sediment (number/area)Ordered By: Antolin Abarca on 05-24-2022 WBC Auto (Urine sed) [#/Area] 1-2 [HPF] 0-4 [facility] Automated urine hyaline cast s count (number/volume)Ordered By: Antolin Abarca on 05-24-2022 Hyaline casts Auto (U) [#/Vol] Rare [LPF] 0-1 [facility] Barbiturates [Presence] in U rine by Screen methodOrdered By: Antolin Abarca on 05-24-2022 Barbiturates Screen Ql (U) Negative Negative [facility] Basophils Auto (Bld) [#/Vol] Ordered By: Antolin Abarca on 05-24-2022 Basophils (Bld) [#/Vol] 0.0 10*3/uL 0.0-0.2 [facility] Basophils/100 WBC Auto (Bld) Ordered By: Antolin Abarca on 05-24-2022 Basophils/100 WBC (Bld) 0.4 % . F [facility] Benzodiazepines Screen Ql (U )Ordered By: Antolin Abarca on 05-24-2022 Benzodiazepines Ql (U) Negative Negative [facility] Benzoylecgonine [Presence] i n Urine by Screen methodOrdered By: Antolin Abarca on 05-24-2022 Benzoylecgonine Screen Ql (U) Negative Negative [facility] Bilirubin Test strip Ql (U)O rdered By: Antolin Abarca on 05-24-2022 Bilirubin Ql (U) Negative Negative [facility] Bilirubin.total [Mass/volume ] in Serum or PlasmaOrdered By: Antolin Abarca on 05-24-2022 Bilirubin [Mass/Vol] 0.3 mg/dL 0.3-1.0 [facility] COVID-19 SOFIAOrdered By: Hay Abarca on 05-24-2022 SARS-CoV+SARS-CoV-2 (COVID-19) Ag IA.rapid Ql (Resp) Negative Negative [facility] Comment on above: This is a duplicate Rayna SARS Antigen (SKYLA) result to be used for statistical tracking purpose only. Calcium [Mass/volume] in Ser um or PlasmaOrdered By: Antolin Abarca on 05-24-2022 Calcium [Mass/Vol] 9.3 mg/dL 8.6-10.3 [facility] Cannabinoids [Presence] in U rine by Screen methodOrdered By: Antolin Abarca on 05-24-2022 Cannabinoids Screen Ql (U) Negative Negative [facility] Comment on above: These are unconfirme d results and should not be used for legal purposes. Drug Cut-Off Concentration: AMPH 1000 ng/mL SANDEEP 200 ng/mL JERSON 200 ng/mL COCM 300 ng/mL OP 300 ng/mL PCP 25 ng/mL THC 20 ng/mL Carbon dioxide, total [Moles /volume] in Serum or PlasmaOrdered By: Antolin Abarca on 05-24-2022 CO2 [Moles/Vol] 20.9 mmol/L 21.0-31.0 [facility] Chloride [Moles/volume] in S monse or PlasmaOrdered By: Antolin Abarca on 05-24-2022 Chloride [Moles/Vol] 108 mmol/L 98-107 [facility] Color Auto (U)Ordered By: Hay Abarca on 05-24-2022 Color (U) Yellow Yellow [facility] Creatinine [Mass/volume] in Serum or PlasmaOrdered By: Antolin Abarca on 05-24-2022 Creatinine [Mass/Vol] 0.79 mg/dL 0.60-1.20 [facility] Eosinophils Auto (Bld) [#/Vo l]Ordered By: Antolin Abarca on 05-24-2022 Eosinophils (Bld) [#/Vol] 0.3 10*3/uL 0.0-0.45 [facility] Eosinophils/100 WBC Auto (Bl d)Ordered By: Antolin Abarca on 05-24-2022 Eosinophils/100 WBC (Bld) 4.2 % . [facility] Erythrocyte distribution wid th Auto (RBC) [Ratio]Ordered By: Antolin Abarca on 05-24-2022 Erythrocyte distribution width (RBC) [Ratio] 15.6 % 11.9-15.3 [facility] Ethanol [Mass/volume] in Ser um or PlasmaOrdered By: Antolin Abarca on 05-24-2022 Ethanol [Mass/Vol] 163 mg/dL [facility] Ethanol [Mass/Vol] 0.163 % [facility] Globulin Calc (S) [Mass/Vol] Ordered By: Antolin Abarca on 05-24-2022 Globulin (S) [Mass/Vol] 2.8 g/dL [facility] Glucose [Mass/volume] in Ser um or PlasmaOrdered By: Antolin Abarca on 05-24-2022 Glucose [Mass/Vol] 83 mg/dL 74-109 [facility] Comment on above: ADA recommended refe rence rangeRandom Glucose Reference Range is dependent on time and content of last meal. Glucose of more than 200 mg/dL in a nonstressed, ambulatory subject supports the diagnosis of Diabetes Mellitus. HCG ( test) IA.rapi d Ql (U)Ordered By: Antolin Abarca on 05-24-2022 HCG ( test) Ql (U) Negative [facility] Hematocrit Auto (Bld) [Volum e fraction]Ordered By: Antolin Abarca on 05-24-2022 Hematocrit (Bld) [Volume fraction] 40.1 % 34.0-46.4 [facility] Hemoglobin [Mass/volume] in BloodOrdered By: Antolin Abarca on 05-24-2022 Hemoglobin (Bld) [Mass/Vol] 13.2 g/dL 11.8-15.4 [facility] Ketones Auto test strip (U) [Mass/Vol]Ordered By: Antolin Abarca on 05-24-2022 Ketones (U) [Mass/Vol] Negative Negative [facility] - Chemistry and C hemistry - challengeOrdered By: Antolin Abarca on 05-24-2022 GFR/1.73 sq M.predicted MDRD (S/P/Bld) [Vol rate/Area] mL/min/{1.73_m2} [facility] Leukocytes [#/volume] correc hemalatha for nucleated erythrocytes in Blood by Automated counOrdered By: Antolin Abarca on 05-24-2022 WBC corrected for nucl RBC Auto (Bld) [#/Vol] 7.0 10*3/uL 3.8-11.6 [facility] Lymphocytes Auto (Bld) [#/Vo l]Ordered By: Antolin Abarca on 05-24-2022 Lymphocytes (Bld) [#/Vol] 2.1 10*3/uL 1.00-4.8 [facility] Lymphocytes/100 WBC Auto (Bl d)Ordered By: Antolin Abarca on 05-24-2022 Lymphocytes/100 WBC (Bld) 29.2 % . [facility] MCH Auto (RBC) [Entitic mass ]Ordered By: Antolin Abarca on 05-24-2022 MCH (RBC) [Entitic mass] 29.2 pg 24.7-34.3 [facility] MCHC Auto (RBC) [Mass/Vol]Or dered By: Antolin Abarca on 05-24-2022 MCHC (RBC) [Mass/Vol] 33.0 g/dL 32.0-35.0 [facility] MCV Auto (RBC) [Entitic vol] Ordered By: Antloin Abarca on 05-24-2022 MCV (RBC) [Entitic vol] 88.6 fL 80-100 [facility] Monocyte distribution width [Entitic volume] in Blood by AutomatedOrdered By: Antolin Abarca on 05-24-2022 Monocyte distribution width Auto (Bld) [Entitic vol] 17.73 % 0.00-20.00 [facility] Monocytes Auto (Bld) [#/Vol] Ordered By: Antolin Abarca on 05-24-2022 Monocytes (Bld) [#/Vol] 0.6 10*3/uL 0.0-0.8 [facility] Monocytes/100 WBC Auto (Bld) Ordered By: Antolin Abarca on 05-24-2022 Monocytes/100 WBC (Bld) 8.2 % . [facility] Neutrophils Auto (Bld) [#/Vo l]Ordered By: Antolin Abarca on 05-24-2022 Neutrophils (Bld) [#/Vol] 4.1 10*3/uL 1.8-7.7 [facility] Neutrophils/100 WBC Auto (Bl d)Ordered By: Antolin Abarca on 05-24-2022 Neutrophils/100 WBC (Bld) 58.0 % . [facility] Nitrite Test strip Ql (U)Ord ered By: Antolin Abarca on 05-24-2022 Nitrite Ql (U) Negative Negative [facility] No Panel InformationOrdered By: Antolin Abarca on 05-24-2022 Pharmacy Creatinine Clearance (Chem 107.39 [facility] SARS Antigen (LFIA) [facility] Nucleated erythrocytes [Pres ence] in Blood by Automated countOrdered By: Antolin Abarca on 05-24-2022 Nucleated RBC Auto Ql (Bld) 0.0 /100{WBC} 0-0.5 [facility] Opiates [Presence] in Urine by Screen methodOrdered By: Antolin Abarca on 05-24-2022 Opiates Screen Ql (U) Negative Negative [facility] Phencyclidine Screen Ql (U)O rdered By: Antolin Abarca on 05-24-2022 Phencyclidine Ql (U) Negative Negative [facility] Platelet mean volume Auto (B ld) [Entitic vol]Ordered By: Antolin Abarca on 05-24-2022 Platelet mean volume (Bld) [Entitic vol] 7.3 fL 6.3-10.7 [facility] Platelets Auto (Bld) [#/Vol] Ordered By: Antolin Abarca on 05-24-2022 Platelets (Bld) [#/Vol] 285 10*3/uL 150-450 [facility] Potassium [Moles/volume] in Serum or PlasmaOrdered By: Antolin Abarca on 05-24-2022 Potassium [Moles/Vol] 4.4 mmol/L 3.5-5.1 [facility] Protein Auto test strip (U) [Mass/Vol]Ordered By: Antolin Abarca on 05-24-2022 Protein (U) [Mass/Vol] Negative Negative [facility] Protein [Mass/volume] in Ser um or PlasmaOrdered By: Antolin Abarca on 05-24-2022 Protein [Mass/Vol] 6.8 g/dL 6.4-8.9 [facility] RBC Auto (Bld) [#/Vol]Ordere d By: Antolin Abarca on 05-24-2022 RBC (Bld) [#/Vol] 4.53 10*6/uL 3.60-5.00 [facility] Serum or plasma albumin/glob ulin mass ratioOrdered By: Antolin Abarca on 05-24-2022 Albumin/Globulin [Mass ratio] 1.4 {ratio} [facility] Serum or plasma anion gap de terminationOrdered By: Atnolin Abarca on 05-24-2022 Anion gap [Moles/Vol] 13.5 mmol/L 6.0-15.0 [facility] Sodium [Moles/volume] in Ser um or PlasmaOrdered By: Antolin Abarca on 05-24-2022 Sodium [Moles/Vol] 138 mmol/L 136-145 [facility] Specific gravity Auto test s trip (U) [Rel density]Ordered By: Antolin Abarca on 05-24-2022 Specific gravity (U) [Rel density] 1.000 1.001-1.030 [facility] Urea nitrogen [Mass/volume] in Serum or PlasmaOrdered By: Antolin Abarca on 05-24-2022 Urea nitrogen [Mass/Vol] 8 mg/dL 7-25 [facility] Urine bacteria detection by automated methodOrdered By: Antolin Abarca on 05-24-2022 Bacteria Auto Ql (U) Rare None Seen [facility] Urine clarity by refractomet ry automatedOrdered By: Antolin Abarca on 05-24-2022 Clarity Refractometry automated (U) Clear Clear [facility] Urine glucose measurement by automated test strip (mass/volume)Ordered By: Antolin Abarca on 05-24-2022 Glucose Auto test strip (U) [Mass/Vol] Normal mg/dL Normal [facility] Urine hemoglobin detection b y automated test stripOrdered By: Antolin Abarca on 05-24-2022 Hemoglobin Auto test strip Ql (U) 2+ Negative [facility] Urine leukocyte esterase det ection by automated test stripOrdered By: Antolin Abarca on 05-24-2022 Leukocyte esterase Auto test strip Ql (U) 2+ Negative [facility] Urobilinogen Auto test strip (U) [Mass/Vol]Ordered By: Antolin Abarca on 05-24-2022 Urobilinogen (U) [Mass/Vol] Normal mg/dL Normal [facility] WBC Auto (Bld) [#/Vol]Ordere d By: Antolin Abarca on 05-24-2022 WBC (Bld) [#/Vol] 7.0 10*3/uL 3.8-11.6 [facility] pH Auto test strip (U)Ordere d By: Antolin Abarca on 05-24-2022 pH (U) 6.0 [pH] 5.0-9.0 [facility] Cholesterol [Mass/volume] in Serum or PlasmaOrdered By: Geo Loomis on 05-11-2022 Cholesterol [Mass/Vol] 154 mg/dL 140-200 [facility] Comment on above: Chol less than 200 m g/dl low riskChol 201-239 mg/dl borderline riskChol 240 mg/dl and greater high risk Cholesterol in LDL Calc [Mas s/Vol]Ordered By: Geo Loomis on 05-11-2022 Cholesterol in LDL [Mass/Vol] 76 mg/dL 0-100 [facility] Comment on above: LDL ATP III CLASSIFI CATIONLDL less than 100 mg/dL OptimalLDL 100-129 mg/dL Near or above optimalLDL 130-159 mg/dL Borderline highLDL 160-189 mg/dL HighLDL greater than 189 mg/dL Very high Cholesterol in VLDL Calc [Ma ss/Vol]Ordered By: Geo Loomis on 05-11-2022 Cholesterol in VLDL [Mass/Vol] 24 mg/dL [facility] Serum or plasma high density lipoprotein (HDL) cholesterol measurementOrdered By: Geo Loomis on 05-11-2022 Cholesterol in HDL [Mass/Vol] 54 mg/dL 35-85 [facility] Comment on above: HDL CHOL ATP-III CLA SSIFICATION Cardiovascular RiskHDL > or equal to 60 mg/dL LOWHDL < 40 mg/dL HIGH Serum or plasma total choles terol/high density lipoprotein (HDL) cholesterol mass ratOrdered By: Geo Loomis on 05-11-2022 Cholesterol.total/Polina sterol in HDL [Mass ratio] 2.9 {ratio} <5.0 [facility] Thyrotropin [Units/volume] i n Serum or PlasmaOrdered By: Geo Loomis on 05-11-2022 TSH Qn 1.87 m[IU]/L 0.45-5.33 [facility] Triglyceride [Mass/volume] i n Serum or PlasmaOrdered By: Geo Loomis on 05-11-2022 Triglyceride [Mass/Vol] 122 mg/dL 0-149 [facility] Comment on above: TRIG ATP III CLASSIF ICATIONTRIG less than 150 mg/dL NormalTRIG 150-199 mg/dL Borderline highTRIG 200-500 mg/dL High TRIG greater than 500 mg/dL Very highStandard traceable to the Center for Disease Conrtrol and Prevention (CDC) test method. Vitamin D+Metabolites [Mass/ volume] in Serum or PlasmaOrdered By: Geo Loomis on 05-11-2022 Vitamin D+Metabolites [Mass/Vol] 22.0 ng/mL 30-100 [facility] Comment on above: VITAMIN D STATUS 25( [place])VITAMIN D RANGE (ng/mL) Deficient <20 Insufficient 20 to <30Sufficient 30 to 100Reference: Braeden MF,Marsha NC, Ez MULTANI, et al. Evaluation,treatment, and prevention of vitamin D deficiency; an Endocrine Society clinical practice guideline. JCEM. 2010; 96(7):1911-30. Alanine aminotransferase [En zymatic activity/volume] in Serum or PlasmaOrdered By: Antolin Abarca on 05-10-2022 ALT [Catalytic activity/Vol] 17 U/L 7-52 [facility] Albumin [Mass/volume] in Ser um or Plasma by Bromocresol green (BCG) dye binding methoOrdered By: Antolin Abarca on 05-10-2022 Albumin BCG dye [Mass/Vol] 4.0 g/dL 3.5-5.7 [facility] Alkaline phosphatase [Enzyma tic activity/volume] in Serum or PlasmaOrdered By: Antolin Abarca on 05-10-2022 ALP [Catalytic activity/Vol] 63 U/L 34-104 [facility] Amphetamine Screen Ql (U)Ord ered By: Antolin Abarca on 05-10-2022 Amphetamines Ql (U) Negative Negative [facility] Aspartate aminotransferase [ Enzymatic activity/volume] in Serum or PlasmaOrdered By: Antolin Abarca on 05-10-2022 AST [Catalytic activity/Vol] 17 U/L 13-39 [facility] Automated erythrocytes count in urine sediment (number/area)Ordered By: Antolin Abarca on 05-10-2022 RBC Auto (Urine sed) [#/Area] 20-49 [HPF] 0-4 [facility] Automated leukocytes count i n urine sediment (number/area)Ordered By: Antolin Abarca on 05-10-2022 WBC Auto (Urine sed) [#/Area] 20-49 [HPF] 0-4 [facility] Automated urine hyaline cast s count (number/volume)Ordered By: Antolin Abarca on 05-10-2022 Hyaline casts Auto (U) [#/Vol] None seen [LPF] 0-1 [facility] Barbiturates [Presence] in U rine by Screen methodOrdered By: Antolin Abarca on 05-10-2022 Barbiturates Screen Ql (U) Negative Negative [facility] Basophils Auto (Bld) [#/Vol] Ordered By: Antolin Abarca on 05-10-2022 Basophils (Bld) [#/Vol] 0.1 10*3/uL 0.0-0.2 [facility] Basophils/100 WBC Auto (Bld) Ordered By: Antolin Abarca on 05-10-2022 Basophils/100 WBC (Bld) 0.8 % . F [facility] Benzodiazepines Screen Ql (U )Ordered By: Antolin Abarca on 05-10-2022 Benzodiazepines Ql (U) Negative Negative [facility] Benzoylecgonine [Presence] i n Urine by Screen methodOrdered By: Antolin Abarca on 05-10-2022 Benzoylecgonine Screen Ql (U) Negative Negative [facility] Bilirubin Test strip Ql (U)O rdered By: Antolin Abarca on 05-10-2022 Bilirubin Ql (U) Negative Negative [facility] Bilirubin.total [Mass/volume ] in Serum or PlasmaOrdered By: Antolin Abarca on 05-10-2022 Bilirubin [Mass/Vol] 0.9 mg/dL 0.3-1.0 [facility] Calcium [Mass/volume] in Ser um or PlasmaOrdered By: Antolin Abarca on 05-10-2022 Calcium [Mass/Vol] 9.5 mg/dL 8.6-10.3 [facility] Cannabinoids [Presence] in U rine by Screen methodOrdered By: Antolin Abarca on 05-10-2022 Cannabinoids Screen Ql (U) Negative Negative [facility] Comment on above: These are unconfirme d results and should not be used for legal purposes. Drug Cut-Off Concentration: AMPH 1000 ng/mL SANDEEP 200 ng/mL JERSON 200 ng/mL COCM 300 ng/mL OP 300 ng/mL PCP 25 ng/mL THC 20 ng/mL Carbon dioxide, total [Moles /volume] in Serum or PlasmaOrdered By: Antolin Abarca on 05-10-2022 CO2 [Moles/Vol] 28.1 mmol/L 21.0-31.0 [facility] Casts typing in urine sedime nt by light microscopyOrdered By: Antolin Abarca on 05-10-2022 Casts LM Nom (Urine sed) None seen [LPF] None Seen [facility] Chloride [Moles/volume] in S monse or PlasmaOrdered By: Antolin Abarca on 05-10-2022 Chloride [Moles/Vol] 103 mmol/L 98-107 [facility] Color Auto (U)Ordered By: Hay Abarca on 05-10-2022 Color (U) Dark yellow Yellow [facility] Creatinine [Mass/volume] in Serum or PlasmaOrdered By: Antolin Abarca on 05-10-2022 Creatinine [Mass/Vol] 0.81 mg/dL 0.60-1.20 [facility] Eosinophils Auto (Bld) [#/Vo l]Ordered By: Antolin Abarca on 05-10-2022 Eosinophils (Bld) [#/Vol] 0.2 10*3/uL 0.0-0.45 [facility] Eosinophils/100 WBC Auto (Bl d)Ordered By: Antolin Abarca on 05-10-2022 Eosinophils/100 WBC (Bld) 1.9 % . [facility] Erythrocyte distribution wid th Auto (RBC) [Ratio]Ordered By: Antolin Abarca on 05-10-2022 Erythrocyte distribution width (RBC) [Ratio] 15.1 % 11.9-15.3 [facility] Ethanol [Mass/volume] in Ser um or PlasmaOrdered By: Antolin Abarca on 05-10-2022 Ethanol [Mass/Vol] mg/dL [facility] Ethanol [Mass/Vol] TNP [facility] Comment on above: Test not performed Globulin Calc (S) [Mass/Vol] Ordered By: Antolin Abarca on 05-10-2022 Globulin (S) [Mass/Vol] 2.9 g/dL F [facility] Glucose [Mass/volume] in Ser um or PlasmaOrdered By: Antolin Abarca on 05-10-2022 Glucose [Mass/Vol] 87 mg/dL 74-109 [facility] Comment on above: ADA recommended refe rence rangeRandom Glucose Reference Range is dependent on time and content of last meal. Glucose of more than 200 mg/dL in a nonstressed, ambulatory subject supports the diagnosis of Diabetes Mellitus. HCG ( test) IA.rapi d Ql (U)Ordered By: Antolin Abarca on 05-10-2022 HCG ( test) Ql (U) Negative [facility] Hematocrit Auto (Bld) [Volum e fraction]Ordered By: Antolin Abarca on 05-10-2022 Hematocrit (Bld) [Volume fraction] 42.9 % 34.0-46.4 [facility] Hemoglobin [Mass/volume] in BloodOrdered By: Antolin Abarca on 05-10-2022 Hemoglobin (Bld) [Mass/Vol] 14.1 g/dL 11.8-15.4 [facility] Ketones Auto test strip (U) [Mass/Vol]Ordered By: Antolin Abarca on 05-10-2022 Ketones (U) [Mass/Vol] Trace Negative Fi [facility] - Chemistry and C hemistry - challengeOrdered By: Antolin Abarca on 05-10-2022 GFR/1.73 sq M.predicted MDRD (S/P/Bld) [Vol rate/Area] mL/min/{1.73_m2} [facility] Leukocytes [#/volume] correc hemalatha for nucleated erythrocytes in Blood by Automated counOrdered By: Antolin Abarca on 05-10-2022 WBC corrected for nucl RBC Auto (Bld) [#/Vol] 10.7 10*3/uL 3.8-11.6 [facility] Lymphocytes Auto (Bld) [#/Vo l]Ordered By: Antolin Abarca on 05-10-2022 Lymphocytes (Bld) [#/Vol] 2.3 10*3/uL 1.00-4.8 [facility] Lymphocytes/100 WBC Auto (Bl d)Ordered By: Antolin Abarca on 05-10-2022 Lymphocytes/100 WBC (Bld) 21.1 % . [facility] MCH Auto (RBC) [Entitic mass ]Ordered By: Antolin Abarca on 05-10-2022 MCH (RBC) [Entitic mass] 29.1 pg 24.7-34.3 [facility] MCHC Auto (RBC) [Mass/Vol]Or dered By: Antolin Abarca on 05-10-2022 MCHC (RBC) [Mass/Vol] 32.9 g/dL 32.0-35.0 [facility] MCV Auto (RBC) [Entitic vol] Ordered By: Antolin Abarca on 05-10-2022 MCV (RBC) [Entitic vol] 88.3 fL 80-100 F [facility] Monocyte distribution width [Entitic volume] in Blood by AutomatedOrdered By: Antolin Abarca on 05-10-2022 Monocyte distribution width Auto (Bld) [Entitic vol] 18.66 % 0.00-20.00 [facility] Monocytes Auto (Bld) [#/Vol] Ordered By: Antolin Abarca on 05-10-2022 Monocytes (Bld) [#/Vol] 0.9 10*3/uL 0.0-0.8 [facility] Monocytes/100 WBC Auto (Bld) Ordered By: Antolin Abarca on 05-10-2022 Monocytes/100 WBC (Bld) 8.7 % . F [facility] Neutrophils Auto (Bld) [#/Vo l]Ordered By: Antolin Abarca on 05-10-2022 Neutrophils (Bld) [#/Vol] 7.2 10*3/uL 1.8-7.7 [facility] Neutrophils/100 WBC Auto (Bl d)Ordered By: Atnolin Abarca on 05-10-2022 Neutrophils/100 WBC (Bld) 67.5 % . [facility] Nitrite Test strip Ql (U)Ord ered By: Antolin Abarca on 05-10-2022 Nitrite Ql (U) Negative Negative [facility] No Panel InformationOrdered By: Antolin Abarca on 05-10-2022 Pharmacy Creatinine Clearance (Chem 102.62 [facility] Nucleated erythrocytes [Pres ence] in Blood by Automated countOrdered By: Antolin Abarca on 05-10-2022 Nucleated RBC Auto Ql (Bld) 0.0 /100{WBC} 0-0.5 [facility] Opiates [Presence] in Urine by Screen methodOrdered By: Antolin Abarca on 05-10-2022 Opiates Screen Ql (U) Negative Negative [facility] Phencyclidine Screen Ql (U)O rdered By: Antolin Abarca on 05-10-2022 Phencyclidine Ql (U) Negative Negative [facility] Platelet mean volume Auto (B ld) [Entitic vol]Ordered By: Antolin Abarca on 05-10-2022 Platelet mean volume (Bld) [Entitic vol] 6.8 fL 6.3-10.7 [facility] Platelets Auto (Bld) [#/Vol] Ordered By: Antolin Abarca on 05-10-2022 Platelets (Bld) [#/Vol] 267 10*3/uL 150-450 [facility] Potassium [Moles/volume] in Serum or PlasmaOrdered By: Antolin Abarca on 05-10-2022 Potassium [Moles/Vol] 4.7 mmol/L 3.5-5.1 [facility] Protein Auto test strip (U) [Mass/Vol]Ordered By: Antolin Abarca on 05-10-2022 Protein (U) [Mass/Vol] 30 mg/dL Negative [facility] Protein [Mass/volume] in Ser um or PlasmaOrdered By: Antolin Abarca on 05-10-2022 Protein [Mass/Vol] 6.9 g/dL 6.4-8.9 [facility] RBC Auto (Bld) [#/Vol]Ordere d By: Antolin Abarca on 05-10-2022 RBC (Bld) [#/Vol] 4.86 10*6/uL 3.60-5.00 [facility] Serum or plasma albumin/glob ulin mass ratioOrdered By: Antolin Abarca on 05-10-2022 Albumin/Globulin [Mass ratio] 1.4 {ratio} [facility] Serum or plasma anion gap de terminationOrdered By: Antolin Abarca on 05-10-2022 Anion gap [Moles/Vol] 9.6 mmol/L 6.0-15.0 [facility] Sodium [Moles/volume] in Ser um or PlasmaOrdered By: Antolin Abarca on 05-10-2022 Sodium [Moles/Vol] 136 mmol/L 136-145 [facility] Specific gravity Auto test s trip (U) [Rel density]Ordered By: Antolin Abarca on 05-10-2022 Specific gravity (U) [Rel density] 1.028 1.001-1.030 [facility] Squamous epithelial cells de tection in urine sediment by light microscopyOrdered By: Antolin Abarca on 05-10-2022 Epithelial cells.squamous LM Ql (Urine sed) 3-4 [HPF] 0-2 [facility] Urea nitrogen [Mass/volume] in Serum or PlasmaOrdered By: Antolin Abarca on 05-10-2022 Urea nitrogen [Mass/Vol] 11 mg/dL 7-25 [facility] Urine bacteria detection by automated methodOrdered By: Antolin Abarca on 05-10-2022 Bacteria Auto Ql (U) 1+ None Seen [facility] Urine clarity by refractomet ry automatedOrdered By: Antolin Abarca on 05-10-2022 Clarity Refractometry automated (U) Cloudy Clear [facility] Urine culture routineOrdered By: Antolin Abarca on 05-10-2022 Bacteria identified Cx Nom (U) 2 Days [facility] Urine glucose measurement by automated test strip (mass/volume)Ordered By: Antolin Abarca on 05-10-2022 Glucose Auto test strip (U) [Mass/Vol] Normal mg/dL Normal [facility] Urine hemoglobin detection b y automated test stripOrdered By: Antolin Abarca on 05-10-2022 Hemoglobin Auto test strip Ql (U) 2+ Negative [facility] Urine leukocyte esterase det ection by automated test stripOrdered By: Antoliniván Abarca on 05-10-2022 Leukocyte esterase Auto test strip Ql (U) 3+ Negative [facility] Urobilinogen Auto test strip (U) [Mass/Vol]Ordered By: Antolin Abarca on 05-10-2022 Urobilinogen (U) [Mass/Vol] Normal mg/dL Normal [facility] WBC Auto (Bld) [#/Vol]Ordere d By: Antolin Abarca on 05-10-2022 WBC (Bld) [#/Vol] 10.7 10*3/uL 3.8-11.6 [facility] pH Auto test strip (U)Ordere d By: Antolin Abarca on 05-10-2022 pH (U) 6.0 [pH] 5.0-9.0 [facility] Covid-19 PCR (CVDTB)on SARS-CoV-2 (COVID-19) RNA PITO+probe Ql (Unsp spec) Detected Abnormal NOT DETECTED [facility] Comment on above: Result Comment: This test is not yet approved or cleared by the [place] FDA. When there are no FDA-approved or cleared tests available, and other criteria are met, FDA can make tests available under an emergency access mechanism called an Emergency Use Authorization (EUA). The EUA for this test is supported by the [place] of Health and Human Service's (HHS's) declaration that circumstances exist to justify the emergency use of in vitro diagnostics for the detection and/or diagnosis of the virus that causes COVID-19. This EUA will remain in effect (meaning this test can be used) for the duration of the COVID-19 declaration justifying emergency of IVDs, unless it is terminated or revoked by FDA (after which the test may no longer be used). Performed By: #### L IPA, CMP #### [facility] [address] [place] [address] Dr. Toy Macario INFLUENZA A AND B AGon 03-13 INFLUANEGH SEE BELOW Normal [facility] Comment on above: Result Comment: Nega tive for Flu A protein angiten. Infection due to Flu A cannot be ruled out. Flu A angiten in the sample may be below the detection limit of the test. Performed By: #### C MP, LIPA #### [facility] [address] [address] [address] Toy Macario [facility] SEE BELOW Normal [facility] Comment on above: Result Comment: Nega tive for Flu B protein antigen. Infection due to Flu B cannot be ruled out. Flu B antigen in the sample may be below the detection limit of the test. Performed By: #### C MP, LIPA #### [facility] [address] [address] [address] Toy Macario INFLUENZA A AG Negative Normal NEGATIVE SEE COMMENT [facility] Comment on above: Performed By: #### C MP, LIPA #### [facility] [address] [address] [address] Toy Macario INFLUENZA B AG Negative Normal NEGATIVE SEE COMMENT [facility] Comment on above: Performed By: #### C MP, LIPA #### [facility] [address] [place] [address] Dr. Toy Macario XR CHEST 1 Von 03-13-2022 XR CHEST 1 V EXAM: XR CHEST 1 V HISTORY: . COUGH . COMPARISON: 03/15/2018 TECHNIQUE: Single view of the chest FINDINGS: Heart and vascularity are unremarkable. Lungs are free of focal infiltrates. Grossly no bony abnormality is appreciated. IMPRESSION: No acute heart or lung disease identified. Electronically authenticated by: URIEL SPIVEY Date: 2022-03-13 15:46 Normal [facility] Progress Noteson 02-14-2022 Nuclear Scientist Authentication Interface Message Text This encounter was opened in error. Patient was a No-Show. Please disregard. Called, directly to busy signal. Dennis Sarmiento MD Normal [facility] Progress Noteson 09-02-2021 Nuclear Scientist Authentication Interface Message Text TUMOR BOARD NOTE Diagnosis: Liver Cyst General Information Patient Name: Shahla Ruelas Date of /Age: 11 1980 41 year old Clinical Summary Care Team Background Information Medical History: Review of patient's past medical history indicates: Anxiety Depression GERD (gastroesophageal reflux disease) HTN (hypertension) Family History: Cancer-related family history is not on file. Tobacco Use: reports that she has been smoking cigarettes. She has a 18.75 pack-year smoking history. She has never used smokeless tobacco. ETOH Use: reports previous alcohol use. Background Information Cancer Diagnosis Information Pathology and Staging Information: SPECIMEN FOR SURGICAL PATH: [id number] Order: [id number] Collected 07/30/2021 15:54 ??? Status: Final result ??? Visible to patient: Yes (not seen) ??? Dx: Liver cyst; Cyst of gallbladder ??? 0 Result Notes ??? Component ??? Case Report Surgical Pathology Report ? Case: [id number] ? Authorizing Provider: ???Dennis Sarmiento MD ? Collected: ? 07/30/2021 1554 ? Ordering Location: ? [facility] Main OR ?Received: ? 08/03/2021 1030 ? Pathologist: ? Marc Ricketts MD ? Specimens: ??? A) - Liver, Falciform ? B) - Liver, Biliary cystadenoma ? C) - Liver, Right hepatic duct polyp ? Final Diagnosis A. Liver, Falciform ??? Falciform ligament and mature adipose tissue, no evidence of neoplasm. ??? B. Liver, Biliary cystadenoma ??? 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 ??? C. Liver, Right hepatic duct polyp ??? 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 ??? Liver parenchyma with steatosis, involving approximately 30 percent of hepatocytes. ??? . ??? I certify that I personally conducted the diagnostic evaluation of the above specimen(s) and have rendered the final diagnosis(es). ??? at 0846 Gross Description ??? A. Requisitioned as liver, falciform . ??? The specimen is received fixed in one container, labeled with the patient's name and medical record number. Marked as liver, falciform . The specimen consists of 18.5 x 4.4 x 1.8 cm yellow-barreto fibroadipose tissue. ???Serially section reveals yellow-barreto lobular smooth and glistening cut surface remarkable for 5.2 cm white-barreto fibrotic tubal tissue consistent with falciform ligament with no identified lymph nodes or masses grossly. ??? Sections: ???Electroplating Worker ??? A1. ???Fibrotic tissue (X) ? B. Requisitioned as liver, biliary cystadenoma . ??? The specimen is received fixed in one container, labeled with the patient's name and medical record number. Marked as liver, biliary cystadenoma, . The specimen consists of a 8.5 x 7.5 x 2.9 cm previously opened cystic lesion with red-barreto and granular outer surface. ???The inner surface is red-barreto and brown granular surface, remarkable for multiple white-barreto and yellow fibrotic areas and a 4.5 x 3 cm polypoid lesion elevated by 1.2 cm. The outer margins appear free of tumor, it is inked green. ??? Sections: ???Electroplating Worker ??? B1. ???Cystic lesion, fibrotic area (X) B2-B6. ???Cystic lesion, polypoid lesion( 1 each) ? C. Requisitioned as liver, right hepatic duct polyp . ??? The specimen is received fixedA4. ???Umbilical cord (2)???in one container, labeled with the patient's name and medical record number. Marked as liver, right hepatic duct polyp . The specimen consists of a 1.2 x 0.9 x 0.5 cm red-barreto and white cystic nodule. ???The outer surface was inked green. Loose in the container a 1 x 0.8 x 0.5 cm red-barreto and yellow fibroadipose tissue ??? Sections: ???In toto ??? C1. ???Cystic nodule (X) C2. Fibroadipose tissue (X) ? Kortney Ivey M.D ? Clinical Information ??? Resulting Agency [facility] ? Specimen Collected: 07/30/21 15:54 Last Resulted: 08/05/21 08:46 ??? Order Details ??? View Encounter ??? Lab and Collection Details ??? Routing ??? Result History ? Scans on Order [id number] ??? Document on 08/05/2021 ???8:46 AM by Marc Ricketts, Treatment Recommendations and NCCN: Plan no surgical in (more content not included)... Normal [facility] Progress Noteson 08-24-2021 Nuclear Scientist Authentication Interface Message Text Patient was identified by name and date of . Narda Mercedes Patient at risk for falls:No Falls Risk protocol implemented: No Normal [facility] Progress Noteson 08-16-2021 Nuclear Scientist Authentication Interface Message Text Phone numbers Preferred Documentation: Mode: Telephone Patient Patient Work Phone: Patient Cell Preferred phone: [phone] Consent: I confirmed patient understanding of the risks and benefits of telehealth visits and obtained consent to proceed with the telehealth visit. Location of Patient: Home of patient Surgery Follow Up Feeling well since surgery. Still hurting but she is starting to feel better. [facility] week for staple removal. SPECIMEN FOR SURGICAL PATH: [id number] Order: [id number] Collected 07/30/2021 15:54 ??? Status: Final result ??? Visible to patient: Yes (not seen) ??? Dx: Liver cyst; Cyst of gallbladder ??? 0 Result Notes Component Case Report Surgical Pathology Report ? Case: [id number] ? Authorizing Provider: ???Dennis Sarmiento MD ? Collected: ? 07/30/2021 1554 ? Ordering Location: ? [facility] Main OR ?Received: ? 08/03/2021 1030 ? Pathologist: ? Marc Ricketts MD ? Specimens: ??? A) - Liver, Falciform ? B) - Liver, Biliary cystadenoma ? C) - Liver, Right hepatic duct polyp ? Final Diagnosis A. Liver, Falciform ??? Falciform ligament and mature adipose tissue, no evidence of neoplasm. ??? B. Liver, Biliary cystadenoma ??? 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 ??? C. Liver, Right hepatic duct polyp ??? 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 ??? Liver parenchyma with steatosis, involving approximately 30 percent of hepatocytes. ??? . ??? I certify that I personally conducted the diagnostic evaluation of the above specimen(s) and have rendered the final diagnosis(es). ??? at 0846 Gross Description A. Requisitioned as liver, falciform . ??? The specimen is received fixed in one container, labeled with the patient's name and medical record number. Marked as liver, falciform . The specimen consists of 18.5 x 4.4 x 1.8 cm yellow-barreto fibroadipose tissue. Serially section reveals yellow-barreto lobular smooth and glistening cut surface remarkable for 5.2 cm white-barreto fibrotic tubal tissue consistent with falciform ligament with no identified lymph nodes or masses grossly. ??? Sections: Electroplating Worker ??? A1. Fibrotic tissue (X) ? B. Requisitioned as liver, biliary cystadenoma . ??? The specimen is received fixed in one container, labeled with the patient's name and medical record number. Marked as liver, biliary cystadenoma, . The specimen consists of a 8.5 x 7.5 x 2.9 cm previously opened cystic lesion with red-barreto and granular outer surface. The inner surface is red-barreto and brown granular surface, remarkable for multiple white-barreto and yellow fibrotic areas and a 4.5 x 3 cm polypoid lesion elevated by 1.2 cm. The outer margins appear free of tumor, it is inked green. ??? Sections: Electroplating Worker ??? B1. Cystic lesion, fibrotic area (X) B2-B6. Cystic lesion, polypoid lesion( 1 each) ? C. Requisitioned as liver, right hepatic duct polyp . ??? The specimen is received fixedA4. ???Umbilical cord (2) in one container, labeled with the patient's name and medical record number. Marked as liver, right hepatic duct polyp . The specimen consists of a 1.2 x 0.9 x 0.5 cm red-barreto and white cystic nodule. The outer surface was inked green. Loose in the container a 1 x 0.8 x 0.5 cm red-barreto and yellow fibroadipose tissue ??? Sections: In toto ??? C1. Cystic nodule (X) C2. Fibroadipose tissue (X) ? Kortney Ivey M.D ? Clinical Information Resulting Agency [facility] Spec[place] Collected: 07/30/21 15:54 Last Resulted: 08/05/21 08:46 Order Details ??? View Encounter ??? Lab and Collection Details ??? Routing ??? Result History ??? Scans on Order [id number] Document on 08/05/2021 ???8:46 AM by Marc Ricketts MD ??? 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 Follow up in 6 months with a televisit in person if needed. Dennis Sarmiento MD, FA (more content not included)... Normal [facility] CYTOLOGY FLUIDOrdered By: Kerwin Ram on 08-04-2021 Appearance (U) Mucoid [facility] Work Phone: Case Report Medical Cytology Report Case: [id number] Authorizing Provider: Dennis Sarmiento MD Collected: 07/30/2021 1619 [facility] Received: 08/03/2021 0822 Pathologist: Ting Ram MD Specimen: Fluid, Cyst (Cytology), liver cyst fluid [facility] Work Phone: Cell Block g2rimLHlJOEhrVJ3UKBv XG Pky4pvl0WcfNFhrKPbXHux vKChihUzdj72pDG8zL02AY 8fQFPlWnJ3JWMclmQ1Ssg3 VWMvGRDjgJFfZ192t4aug5 mmddIefJZ4eAzpWJRzmisq TqK5VDbsHFPnctrtHBh6YY laWNOleKW4XSMysIMjU2Tm NSGnWW8yiru2ROT2FUwfTB HxEhA4VFVurBWqHVGnaKnx ZWlnk387DRI1PgGpKACtuw NpjFszpD4pMkMsHRXQlH9a ZCwgZmlicmluLCBncmFudW xhciBkZWJyaXMsIHJhcmUg iQScix6alMOeUTWwRLFuZV BkZWdlbmVyYXRlZCBpbmZs HT9sCZTznvprC9MsqLIrZR Bhcn0= [facility] Work Phone: Clinical Information [facility] Work Phone: Color (U) [employer] Work Phone: Final Diagnosis r2nesRWyGXXgr5giOUVn bG FuZzEwMzNcZnRuYmpcdWMx IHtccnRmMVxlcGljOTkwMV kpihNiKPGrfOQrY5Mvgbvq WZnrBR7nDS5vqDmqhSIjeM EsYJSxBnAih6keu055rVOq p0tjOXUDorejgPh5kQmdS9 7lf6U8YhehX84zhPWvXHA1 RDHoLDDcaGMtESQpKSR5GU BtbCAaN7hvLGSuAZ5irfwm PZpgEPzsXTBsuBI0VNDclA NmR8HgZAEoDEfkOOHlugp8 WqXjGg0iqJSgaRwkYTbkLX JkXHBsYWluXGJcZnMyMCAi Gwr3xMCcGCY8s3RzMRA8dJ 3pj7x9PXkqvBs8NRUmH0ao dCBmbHVpZCJccGFyXGIwXH SeebURKLyumEd3WFLbp7Nd hSAzxMzqSF3yqU9bcIEjXY Bqu0EzxP04jrGnPYSxhHJs IGZldyBkZWdlbmVyYXRlZC KjPAyshbypEL5cHVJngsCr tFEmtn5egICfYIZwHNBsXE WfAKEcevTkHQAkPPRatB5d OVJgvJnrwY2cUDNfu7xaW5 bdapKiv5Q0EI4hwGEjIGGf afFsH3AfIYSzwMewNtysT6 altI03JHVoxqK5JMJxr75z DqOvANJ9rEEwPLXkcO58HL xwYXJccGFyXHBhciBQcmlt XQD3RDKdtiGfpzXnKmIIQM P3o7LlGbQaotEnBANLWNqN V0ZEXEbpOXJ8u0lgsILcDF TtpVVbMwHyBTFnNIJkt5oj ZGVmbGFuZzEwMzNcZnRuYm aeoZZxNNQvTuJlv3nqt925 fEXtc6upCFViMqN0vAOnRB ZmpYNtB416BIXtOWvuw9dh s6FhKGZalJUjv5T7OQSXhj sokGe5mUfiC48we6Z6Eowx H9jbRRYtVELlE6DqVN6uCL ApKpx3EIC7FMZ4ZICxVOc3 LBzvBFJuPLUcRtn7MLp0VA tccmVkMFxncmVlbjBcYmx1 TXInM753VXY5lRybe7ncUN O1CWCuGOBnDfJwUi4zaVPn M998UVDvUEFUEZVkvNn3KW SbkqUofnLpnYRKk792G797 f2yqONWlbrAzqGoYyrpow7 oeM379BBHjfCHjcsDvJxMh ONSikMEgzBD2DAMtBN0pbt ddWBweXXbyVXKnjrG5ZMNp qBJnV5GbKQHnPZ1ojotdOF U2TDexSUZdGDA5LeSwYNPa l9Wiqls7RvMbmo3mat35CV Q0n4TsfQssGPO9EUF2BuCb Pm3tbOUfCHKqNH3eYtYytG JqDPJyss31jRtpPTahsdYo uE0uGgEsFLOmeAAdRUOxQN 4kkYOuMXYmiB4yiukiXFKy YnJkcmhlYWRccGdicmRyZm 5rtYtsBGY3IObvZ2zdfI2v AoW9FHwnH8kirA3tOCs3WT sajAA7BNVxzB7gUY7ilfcz p5ypRNqwDEgzLBOkljL1gy H3QBVgtBCiB6KynH0eBGYg VU1embbvi4hnZQA1ACazLF PzXPO2IkXtEESpe9Icfau7 EsUmy2YupDDjSBbbN16ia9 91XBWfazKfN2xrcJKjrytf sSMgyvllHJhnxhP6XCWoNX BsYWluXGYxXGZzMjJcbGFu ZzEwMzNcaGljaFxmMVxkYm NfFEDgDVzvN4dgBdQbBvVr GuuhLWYntOldnR4jCrOwBz IyKLinNX6lYWQoV0abvYFo FOGaQIXrH7tbKgBdbC9ywV ysDSdjkrXiYIPdSKQ4ok7q bTItsDu1CRMrI93wKQPOmX XwVwvdUDn0SE9gMXHhjETs UATWCYIhiyEzSi3iDP2aUL IyLlxwYXJccGFyXHBsYWlu XGYxXGZzMThcbGFuZzEwMz NcaGljaFxmMVxkYmNoXGYx GJcrH5mhNaFnO3IwXALoQO hcaSBJIGNlcnRpZnkgdGhh dCBJIHBlcnNvbmFsbHkgY2 9uZHVjdGVkIHRoZSBkaWFn sd2nuWadXUX5KDk4WLZfg2 1em1MnxPqnHXFko4MrZQLo ZWNpbWVuKHMpIGFuZCBoYX ZlIHJlbmRlcmVkIHRoZSBm bY3dgZJoqRDjdm1xsAVyCP UpYtXedTeuyY9mBfRbDcBy YmnjWX0cENUzP7gjqHTaLF GpDEPaW4ewPaTnuZ3pxXuk JOoeckVnOLBqwsgjBSU0jZ == [facility] Work Phone: Gross Description e1nahANiUEEhjCJ4KXOx XG Zfd5ead9YilKRftRJaBVel oLYmptIkqn85tQG5jT88IC 1iLPIcMuW5PEDoooX5Xys2 PFEwFTOtpOPrJ896e5rgq7 mabyMipUA5jVqoPJCmjigu YnJ9ZJjdKYSfvqgaBDp5GQ zmQICebMI2UPOacNMbD6Gj NSNuNO5vaoz5OVD9MRtyTB MjLtG4TGNjoKTxSNLplHhh CKjcz960EHN0YaOlHFQamq AotBseaV1lFdOiLRSjBRUj vX2WnePzMTUlfLKaKRCdYM PlujCiJgSUxHPhfJ3rGOGo eGVkIGFuZCBzdGFpbmVkIH zpfArrGCOgAR4dB89yCP66 ZJN0QRudOshuHZRhE9RpfP VLmM0hwpXejqTbELZyIMIz o0JtQRezqPbmMVOvc30gDO UEFUuvLHXlc3BrQZ1hoTVz aWFsIGZpeGVkIGluIDEwJS YdQIE0mkAbZZO4QqRiasAn OQRdgn5zzWffKAXpmgGeWA WvzA11zoAqSEAgzg4= [facility] Work Phone: Volume 1 mL [facility] Work Phone: [facility] Work Phone: AEROBIC WOUND CULTUREOrdered By: Annabelle Bourne on 08-03-2021 Bacteria identified Cx Nom (Wound) Positive Abnormal [facility] Bacteria identified Cx Nom (Wound) Rare Enterobacter cloacae complex [facility] Interpretation and review of laboratory results Abnormal [facility] Microscopic observation Gram stain Nom (Unsp spec) 4+ Polymorphonuclear Leukocytes [facility] Microscopic observation Gram stain Nom (Unsp spec) No Squamous Epithelial Cells seen [facility] Microscopic observation Gram stain Nom (Unsp spec) No organisms seen [facility] Basic metabolic 2000 panelon 08-03-2021 Anion gap [Moles/Vol] 14 mmol/L [facility] Calcium [Mass/Vol] 8.7 mg/dL 8.4 - 10. 4 mg/dL [facility] Chloride [Moles/Vol] 103 mmol/L 97 - 11 1 mmol/L [facility] CO2 [Moles/Vol] 25 mmol/L 21 - 30 mmol/L [facility] Creatinine [Mass/Vol] 0.65 mg/dL 0.50 - 1.10 mg/dL [facility] GFR/1.73 sq M.predicted MDRD (S/P/Bld) [Vol rate/Area] 112 mL/min/{1.73_m2} >=60 mL/min/1.73 sqm [facility] Comment on above: 2020 CKD EPI Equatio n using Creatinine without Race Comment: Estimated glomerular filtration rate (eGFR) is calculated without a race coefficient. Values should be interpreted in the context of the patient's full clinical presentation. Reference: 1. Jordan C, Conner M, Gina CLEVELAND, et al.. A Unifying Approach for GFR Estimation: Recommendations of the NKF-ASN Task Force on Reassessing the Inclusion of Race in Diagnosing Kidney Disease. [place] Journal of Kidney Diseases 202;79(2):268-88.e1. 2. N Engl J Med 2020 Vol. 385 Issue 19 Pages 4695-5754 Glucose [Mass/Vol] 88 mg/dL 68 - 110 mg/dL [facility] Interpretation and review of laboratory results Abnormal [facility] Potassium [Moles/Vol] 3.8 mmol/L 3.3 - 5.3 mmol/L [facility] Sodium [Moles/Vol] 138 mmol/L 135 - 148 mmol/L [facility] Urea nitrogen [Mass/Vol] 3 mg/dL Low 8 - 22 mg/dL [facility] CBC panel Auto (Bld)Ordered By: Mireya Holley on 08-03-2021 Erythrocyte distribution width (RBC) [Ratio] 15.4 % High 11.5 - 14.5 % [facility] Hematocrit (Bld) [Volume fraction] 24.9 % Low 36.0 - 46.0 % [facility] Hemoglobin (Bld) [Mass/Vol] 8.6 g/dL Low 12.0 - 15.0 g/dL [facility] Interpretation and review of laboratory results Abnormal [facility] MCH (RBC) [Entitic mass] 29.1 pg 26.0 - 34.0 pg [facility] MCHC (RBC) [Mass/Vol] 34.7 g/dL 32.0 - 35.9 g/dL [facility] MCV (RBC) [Entitic vol] 84 fL 80 - 100 fL [facility] Platelet mean volume (Bld) [Entitic vol] 7.5 fL 7.5 - 11.2 fL [facility] Platelets (Bld) [#/Vol] 245 10*3/uL 150 - 400 K/uL [facility] RBC (Bld) [#/Vol] 2.97 10*6/uL Low [facility] WBC (Bld) [#/Vol] 6.5 10*3/uL 4.5 - 11.5 K/uL [facility] HEPATIC FUNCTION PANELon Albumin [Mass/Vol] 2.7 g/dL Low 3.4 - 5.1 g/dL [facility] ALP [Catalytic activity/Vol] 43 U/L [facility] ALT [Catalytic activity/Vol] 29 U/L [facility] AST [Catalytic activity/Vol] 26 U/L [facility] Bilirubin [Mass/Vol] 0.6 mg/dL 0.1 - 1 .5 mg/dL [facility] Bilirubin.direct [Mass/Vol] 0.20 mg/dL 0.10 - 0.30 mg/dL [facility] Interpretation and review of laboratory results Abnormal [facility] Protein [Mass/Vol] 4.5 g/dL Low 6.2 - 8.3 g/dL [facility] Laboratory - Blood bankon Major crossmatch [Interp] Compatible (E) [facility] Major crossmatch [Interp] Compatible (E) [facility] MAGNESIUMon 08-03-2021 Interpretation and review of laboratory results Normal [facility] Magnesium [Mass/Vol] 1.9 mg/dL 1.6 - 2 .8 mg/dL [facility] No Panel Informationon 08-03 [facility] Blood Product Code [id number] [facility] Blood Product Description FFP [facility] Blood Product Unit Type 7300 M [facility] Comment on above: B Pos Status Released to avail [facility] Blood Product Code [id number] [facility] Blood Product Description Red Blood Cells [facility] Blood Product Unit Type 7300 M [facility] Comment on above: B Pos Status Released to avail [facility] Blood Product Code [id number] [facility] Blood Product Description Red Blood Cells [facility] Blood Product Unit Type 7300 M [facility] Comment on above: B Pos Status Transfused [facility] PLASMA STATUSon 08-03-2021 Blood product unit Nom (BPU) [ID] [id number] [facility] Blood product unit Nom (BPU) [ID] [id number] [facility] RED BLOOD CELL UNIT STATUSon 08-03-2021 Blood product unit Nom (BPU) [ID] [id number] [facility] Blood product unit Nom (BPU) [ID] [id number] [facility] Blood product unit Nom (BPU) [ID] [id number] [facility] Blood product unit Nom (BPU) [ID] [id number] [facility] Basic metabolic 2000 panelon 08-02-2021 Anion gap [Moles/Vol] 11 mmol/L [facility] Calcium [Mass/Vol] 8.4 mg/dL 8.4 - 10. 4 mg/dL [facility] Chloride [Moles/Vol] 106 mmol/L 97 - 11 1 mmol/L [facility] CO2 [Moles/Vol] 25 mmol/L 21 - 30 mmol/L [facility] Creatinine [Mass/Vol] 0.66 mg/dL 0.50 - 1.10 mg/dL [facility] GFR/1.73 sq M.predicted MDRD (S/P/Bld) [Vol rate/Area] 112 mL/min/{1.73_m2} >=60 mL/min/1.73 sqm [facility] Comment on above: 2020 CKD EPI Equatio n using Creatinine without Race Comment: Estimated glomerular filtration rate (eGFR) is calculated without a race coefficient. Values should be interpreted in the context of the patient's full clinical presentation. Reference: 1. Jordan C, Conner M, Gina C[place], et al.. A Unifying Approach for GFR Estimation: Recommendations of the NKF-ASN Task Force on Reassessing the Inclusion of Race in Diagnosing Kidney Disease. [place] Journal of Kidney Diseases 202;79(2):268-88.e1. 2. N Engl J Med 1 Vol. 385 Issue 19 Pages 5918-3567 Glucose [Mass/Vol] 85 mg/dL 68 - 110 mg/dL [facility] Interpretation and review of laboratory results Abnormal [facility] Potassium [Moles/Vol] 4.2 mmol/L 3.3 - 5.3 mmol/L [facility] Sodium [Moles/Vol] 138 mmol/L 135 - 148 mmol/L [facility] Urea nitrogen [Mass/Vol] 4 mg/dL Low 8 - 22 mg/dL [facility] CBC panel Auto (Bld)on 08-02 Erythrocyte distribution width (RBC) [Ratio] 15.5 % High 11.5 - 14.5 % [facility] Hematocrit (Bld) [Volume fraction] 24.0 % Low 36.0 - 46.0 % [facility] Hemoglobin (Bld) [Mass/Vol] 8.0 g/dL Low 12.0 - 15.0 g/dL [facility] Interpretation and review of laboratory results Abnormal [facility] MCH (RBC) [Entitic mass] 27.8 pg 26.0 - 34.0 pg [facility] MCHC (RBC) [Mass/Vol] 33.3 g/dL 32.0 - 35.9 g/dL [facility] MCV (RBC) [Entitic vol] 84 fL 80 - 100 fL [facility] Platelet mean volume (Bld) [Entitic vol] 7.4 fL Low 7.5 - 11.2 fL [facility] Platelets (Bld) [#/Vol] 186 10*3/uL 150 - 400 K/uL [facility] RBC (Bld) [#/Vol] 2.87 10*6/uL [facility] W[facility] (Bld[facility] [#/Vol] 7.8 10*3/uL 4.5 - 11.5 K/uL [facility] CT ABDOMEN/PELVIS W/ CONTRAS TOrdered By: Mag Ordoñez on 08-02-2021 CT DLP 902.8 (mGy.cm) [facility] Work Phone: CT Series Abdomen [facility] Work Phone: CTDI VOL 16.5 (mGy) [facility] Work Phone: PHANTOM TYPE IEC Body Dosimetry Phantom [facility] Work Phone: [facility] Work Phone: CT ABDOMEN/PELVIS W/ CONTRAS Ton 08-02-2021 EXAMINATION: CT ABDOMEN/PELVIS W/ CONTRAST 08/01/2021 12:41 PM CLINICAL HISTORY: Reason for Exam: Pt s/p Yovani en Y hepaticojejunostomy with bile leak. Consulted IR for PTHC drain placement. IR request CT with contrast to assess anatomy ASSOCIATED DIAGNOSIS: Pt s/p Yovani en Y hepaticojejunostomy with bile leak. Consulted IR for PTHC drain placement. IR request CT with contrast to assess anatomy Additional history per [facility] surgery note 07/30/2021: Status post laparoscopy with resection of a hepatic duct polyp and Yovani-en-Y hepaticojejunostomy x 2 on 07/30/2021; Intraoperative cholangiogram revealed a left hepatic duct transection, which was consistent with communication into the cyst itself. Intrahepatic bile duct polyp was excised in its entirety and was located in segment IVB left hepatic duct, which was excised. ORDERING PROVIDER: RALPH [employer] NOTE: COMPARISON: Intraoperative fluoroscopic images dated 07/30/2021; MRI of the abdomen with intravenous contrast dated 04/27/2021 and 04/23/2021; outside CT dated 05/16/2021, intraoperative fluoroscopy 07/30/2021 TECHNIQUE: Contiguous axial images were obtained through the abdomen and pelvis from the level of the diaphragmatic domes through the pubic symphysis following bolus administration of intravenous contrast. MPR sagittal and coronal reconstructions were obtained from the axial data. Before infusion of intravenous contrast, radiology personnel investigated the possibility of an allergic history and of any history of reaction to iodinated contrast material. Contrast Protocol: Omnipaque 350 [>or =100lb] 100 ml [<100 lb] 1 ml per 1 lb. INTRA-PROCEDURE MEDS: Diatrizoate Meglumine iohexol (OMNIPAQUE) 300 MG/ML injection 100 mL Route: Intravenous Push FINDINGS: Included images of the lower thorax: Trace left and small right pleural effusions with adjacent passive atelectasis. Linear atelectasis/scarring in the right middle lobe and lingula. No focal lung consolidation or pleural effusion. A prominent pericardiophrenic lymph node measures 0.9 cm in short axis (3:21). Hepatobiliary: Right lateral approach drainage catheter is seen in with the tip terminating in the region of resected complex cystic mass in the gallbladder fossa. There is a small amount of fluid surrounding the drainage catheter and left lobe of the liver. The gallbladder is surgically absent. Indeterminate segment 3 lesion is not well-visualized and better seen on the prior MRI. Intra and extrahepatic biliary ductal dilatation with the common bile duct measuring up to 1.2 cm in diameter. The common bile duct tapers distally. Query soft tissue density filling defects within the mid and distal common bile duct. Pancreas: Unremarkable Spleen: Unremarkable Adrenal Glands: The right adrenal gland is unremarkable. The left adrenal gland has nodular thickening measuring up to 1.7 cm and with internal coarse calcifications, unchanged and previously characterized as multiple adrenal adenomas by MRI. Kidneys, ureters, and bladder: No renal parenchymal lesions are seen. No calculi or hydroureteronephrosis. Reyes catheter is seen in the bladder lumen with a significant amount of intraluminal air. The bladder is decompressed around the Reyes, limiting evaluation. Abdominal and pelvic vasculature: Atherosclerotic wall calcifications are present without aneurysm. GI tract: Status post Yovani-en-Y hepaticojejunostomy. No evidence of bowel obstruction. The appendix is within normal limits. Peritoneum and retroperitoneum: Small amount of free fluid in the gallbladder fossa and layering in the pelvis which may represent sequelae of recent surgery and known bile leak. There is also a small amount of free air in the abdomen, likely related to recent surgery. Lymph Nodes: There are slightly prominent jennie hepatis lymph nodes. For reference: There is a scott conglomerate measuring 1.9 x 1.8 cm near the caudate lobe 3:52). There is an additional jennie hepatis lymph node measuring 1.1 cm in short axis (3:54). No additional adenopathy is seen in the abdomen or pelvis by CT size criteria. Uterus and adnexa: Suboptimally evaluated by CT. Visualized musculoskeletal structures: There are degenerative changes in the spine. There is a posterior disc osteophyte complex at L4-L5 and a small disc bulge at L5-S1. No acute fracture or destructive osseous lesion is identified. Soft tissue edema with subcutaneous locules of gas along the anterior abdominal wall are seen with overlying skin ramana related to recent surgery. IMPRESSION: 1. Status post recent Yovani-en-Y hepaticojejunostomy. Right lateral approach drainage catheter is seen with the tip terminating in the region of resected complex cystic mass in the gallbladder fossa. There is a small amount of fluid surrounding the catheter and in the pelvis, which may be postsurgical and/or related to patient's known bile leak. 2. Intra and extrahepatic biliary duct dilatation with the common (more content not included)... RADIOLOGY Mag Ordoñez M D - 08/02/2021 EXAMINATION: CT ABDOMEN/PELVIS W/ CONTRAST 08/01/2021 12:41 PM CLINICAL HISTORY: Reason for Exam: Pt s/p Yovani en Y hepaticojejunostomy with bile leak. Consulted IR for PTHC drain placement. IR request CT with contrast to assess anatomy ASSOCIATED DIAGNOSIS: Pt s/p Yovani en Y hepaticojejunostomy with bile leak. Consulted IR for PTHC drain placement. IR request CT with contrast to assess anatomy Additional history per [facility] surgery note 07/30/2021: Status post laparoscopy with resection of a hepatic duct polyp and Yovani-en-Y hepaticojejunostomy x 2 on 07/30/2021; Intraoperative cholangiogram revealed a left hepatic duct transection, which was consistent with communication into the cyst itself. Intrahepatic bile duct polyp was excised in its entirety and was located in segment IVB left hepatic duct, which was excised. ORDERING PROVIDER: R[employer]PH [employer] NOTE: COMPARISON: Intraoperative fluoroscopic images dated 07/30/2021; MRI of the abdomen with intravenous contrast dated 04/27/2021 and 04/23/2021; outside CT dated 05/16/2021, intraoperative fluoroscopy 07/30/2021 TECHNIQUE: Contiguous axial images were obtained through the abdomen and pelvis from the level of the diaphragmatic domes through the pubic symphysis following bolus administration of intravenous contrast. MPR sagittal and coronal reconstructions were obtained from the axial data. Before infusion of intravenous contrast, radiology personnel investigated the possibility of an allergic history and of any history of reaction to iodinated contrast material. Contrast Protocol: Omnipaque 350 [>or =100lb] 100 ml [<100 lb] 1 ml per 1 lb. INTRA-PROCEDURE MEDS: Diatrizoate Meglumine iohexol (OMNIPAQUE) 300 MG/ML injection 100 mL Route: Intravenous Push FINDINGS: Included images of the lower thorax: Trace left and small right pleural effusions with adjacent passive atelectasis. Linear atelectasis/scarring in the right middle lobe and lingula. No focal lung consolidation or pleural effusion. A prominent pericardiophrenic lymph node measures 0.9 cm in short axis (3:21). Hepatobiliary: Right lateral approach drainage catheter is seen in with the tip terminating in the region of resected complex cystic mass in the gallbladder fossa. There is a small amount of fluid surrounding the drainage catheter and left lobe of the liver. The gallbladder is surgically absent. Indeterminate segment 3 lesion is not well-visualized and better seen on the prior MRI. Intra and extrahepatic biliary ductal dilatation with the common bile duct measuring up to 1.2 cm in diameter. The common bile duct tapers distally. Query soft tissue density filling defects within the mid and distal common bile duct. Pancreas: Unremarkable Spleen: Unremarkable Adrenal Glands: The right adrenal gland is unremarkable. The left adrenal gland has nodular thickening measuring up to 1.7 cm and with internal coarse calcifications, unchanged and previously characterized as multiple adrenal adenomas by MRI. Kidneys, ureters, and bladder: No renal parenchymal lesions are seen. No calculi or hydroureteronephrosis. Reyes catheter is seen in the bladder lumen with a significant amount of intraluminal air. The bladder is decompressed around the Reyes, limiting evaluation. Abdominal and pelvic vasculature: Atherosclerotic wall calcifications are present without aneurysm. GI tract: Status post Yovani-en-Y hepaticojejunostomy. No evidence of bowel obstruction. The appendix is within normal limits. Peritoneum and retroperitoneum: Small amount of free fluid in the gallbladder fossa and layering in the pelvis which may represent sequelae of recent surgery and known bile leak. There is also a small amount of free air in the abdomen, likely related to recent surgery. Lymph Nodes: There are slightly prominent jennie hepatis lymph nodes. For reference: There is a scott conglomerate measuring 1.9 x 1.8 cm near the caudate lobe 3:52). There is an additional jennie hepatis lymph node measuring 1.1 cm in short axis (3:54). No additional adenopathy is seen in the abdomen or pelvis by CT size criteria. Uterus and adnexa: Suboptimally evaluated by CT. Visualized musculoskeletal structures: There are degenerative changes in the spine. There is a posterior disc osteophyte complex at L4-L5 and a small disc bulge at L5-S1. No acute fracture or destructive osseous lesion is identified. Soft tissue edema with subcutaneous locules of gas along the anterior abdominal wall are seen with overlying skin ramana related to recent surgery. IMPRESSION: 1. Status post recent Yovani-en-Y hepaticojejunostomy. Right lateral approach drainage catheter is seen with the tip terminating in the region of resected complex cystic mass in the gallbladder fossa. There is a small amount of fluid surrounding the catheter and in the pelvis, which may be postsurgical and/or related to patient's known (more content not included)... [facility] HEPATIC FUNCTION PANELon Albumin [Mass/Vol] 2.6 g/dL Low 3.4 - 5.1 g/dL [facility] ALP [Catalytic activity/Vol] 35 U/L Low [facility] ALT [Catalytic activity/Vol] 34 U/L [facility] AST [Catalytic activity/Vol] 37 U/L [facility] Bilirubin [Mass/Vol] 0.8 mg/dL 0.1 - 1 .5 mg/dL [facility] Bilirubin.direct [Mass/Vol] 0.20 mg/dL 0.10 - 0.30 mg/dL [facility] Interpretation and review of laboratory results Abnormal [facility] Protein [Mass/Vol] 4.4 g/dL Low 6.2 - 8.3 g/dL [facility] MAGNESIUMon 08-02-2021 Interpretation and review of laboratory results Normal [facility] Magnesium [Mass/Vol] 1.9 mg/dL 1.6 - 2 .8 mg/dL [facility] Basic metabolic 2000 panelon 08-01-2021 Anion gap [Moles/Vol] 11 mmol/L [facility] Calcium [Mass/Vol] 8.1 mg/dL Low 8.4 - 10. 4 mg/dL [facility] Chloride [Moles/Vol] 105 mmol/L 97 - 11 1 mmol/L [facility] CO2 [Moles/Vol] 24 mmol/L 21 - 30 mmol/L [facility] Creatinine [Mass/Vol] 0.63 mg/dL 0.50 - 1.10 mg/dL [facility] GFR/1.73 sq M.predicted MDRD (S/P/Bld) [Vol rate/Area] 113 mL/min/{1.73_m2} >=60 mL/min/1.73 sqm [facility] Comment on above: 2020 CKD EPI Equatio n using Creatinine without Race Comment: Estimated glomerular filtration rate (eGFR) is calculated without a race coefficient. Values should be interpreted in the context of the patient's full clinical presentation. Reference: 1. Jordan C, Conner M, Gina [place], et al.. A Unifying Approach for GFR Estimation: Recommendations of the NKF-ASN Task Force on Reassessing the Inclusion of Race in Diagnosing Kidney Disease. [place] Journal of Kidney Diseases 202;79(2):268-88.e1. 2. N Engl J Med 1 Vol. 385 Issue 19 Pages 9746-9996 Glucose [Mass/Vol] 101 mg/dL 68 - 110 mg/dL [facility] Interpretation and review of laboratory results Abnormal [facility] Potassium [Moles/Vol] 4.5 mmol/L 3.3 - 5.3 mmol/L [facility] Sodium [Moles/Vol] 135 mmol/L 135 - 148 mmol/L [facility] Urea nitrogen [Mass/Vol] 6 mg/dL Low 8 - 22 mg/dL [facility] CBC panel Auto (Bld)Ordered By: Danyelle Cuevas on 08-01-2021 Erythrocyte distribution width (RBC) [Ratio] 15.6 % High 11.5 - 14.5 % [facility] Hematocrit (Bld) [Volume fraction] 22.3 % Low 36.0 - 46.0 % [facility] Hemoglobin (Bld) [Mass/Vol] 7.6 g/dL Low 12.0 - 15.0 g/dL [facility] Interpretation and review of laboratory results Abnormal [facility] MCH (RBC) [Entitic mass] 28.4 pg 26.0 - 34.0 pg [facility] MCHC (RBC) [Mass/Vol] 34.0 g/dL 32.0 - 35.9 g/dL [facility] MCV (RBC) [Entitic vol] 84 fL 80 - 100 fL [facility] Platelet mean volume (Bld) [Entitic vol] 7.3 fL Low 7.5 - 11.2 fL [facility] Platelets (Bld) [#/Vol] 163 10*3/uL 150 - 400 K/uL [facility] RBC (Bld) [#/Vol] 2.66 10*6/uL Low [facility] WBC (Bld) [#/Vol] 7.6 10*3/uL 4.5 - 11.5 K/uL [facility] ABDOMEN/PELVIS W/ CONTRAS Ton 08-01-2021 Radiology Study observation (narrative) [facility] HEPATIC FUNCTION PANELon Albumin [Mass/Vol] 2.7 g/dL Low 3.4 - 5.1 g/dL [facility] ALP [Catalytic activity/Vol] 32 U/L Low [facility] ALT [Catalytic activity/Vol] 40 U/L [facility] AST [Catalytic activity/Vol] 53 U/L High [facility] Bilirubin [Mass/Vol] 1.0 mg/dL 0.1 - 1 .5 mg/dL [facility] Bilirubin.direct [Mass/Vol] 0.20 mg/dL 0.10 - 0.30 mg/dL [facility] Interpretation and review of laboratory results Abnormal [facility] Protein [Mass/Vol] 3.7 g/dL Low 6.2 - 8.3 g/dL [facility] MAGNESIUMon 08-01-2021 Interpretation and review of laboratory results Normal [facility] Magnesium [Mass/Vol] 1.9 mg/dL 1.6 - 2 .8 mg/dL [facility] No Panel Informationon 08-01 [facility] PARTIAL THROMBOPLASTIN TIMEo n 08-01-2021 aPTT Coag (Bld) [Time] 29 s [facility] Interpretation and review of laboratory results [facility] PROTHROMBIN TIME AND INRon 0 08-01-2021 INR Coag (PPP) [Relative time] 1.13 {INR} [facility]ation and review of laboratory results Abnormal [facility] PT Coag (PPP) [Time] 12.8 s [facility] BLOOD GAS, ARTERIALOrdered B y: Feliciano Cutler on 07-31-2021 Base excess Calc (Bld) [Moles/Vol] -3.1000 mmol/L Low -2.0 - 2.0 mmol/L [facility] CO2 (Bld) [Partial pressure] 36.3 mm[Hg] [facility] Oxygen (Bld) [Partial pressure] 97 mm[Hg] [facility] pH (Bld) 7.382 [pH] [facility] Basic metabolic 2000 panelon 07-31-2021 Anion gap [Moles/Vol] 12 mmol/L [facility] Calcium [Mass/Vol] 8.9 mg/dL 8.4 - 10. 4 mg/dL [facility] Chloride [Moles/Vol] 106 mmol/L 97 - 11 1 mmol/L [facility] CO2 [Moles/Vol] 22 mmol/L 21 - 30 mmol/L [facility] Creatinine [Mass/Vol] 0.85 mg/dL 0.50 - 1.10 mg/dL [facility] GFR/1.73 sq M.predicted MDRD (S/P/Bld) [Vol rate/Area] 87 mL/min/{1.73_m2} >=60 mL/min/1.73 sqm [facility] Comment on above: 2020 CKD EPI Equatio n using Creatinine without Race Comment: Estimated glomerular filtration rate (eGFR) is calculated without a race coefficient. Values should be interpreted in the context of the patient's full clinical presentation. Reference: 1. Jordan C, Conner M, Gina DC, et al.. A Unifying Approach for GFR Estimation: Recommendations of the NKF-ASN Task Force on Reassessing the Inclusion of Race in Diagnosing Kidney Disease. [place] Journal of Kidney Diseases 2021;79(2):268-88.e1. 2. N Engl J Med 2020 Vol. 385 Issue 19 Pages 9035-1326 Glucose [Mass/Vol] 129 mg/dL High 68 - 110 mg/dL [facility] Interpretation and review of laboratory results Abnormal [facility] Potassium [Moles/Vol] 4.6 mmol/L 3.3 - 5.3 mmol/L [facility] Sodium [Moles/Vol] 135 mmol/L 135 - 148 mmol/L [facility] Urea nitrogen [Mass/Vol] 10 mg/dL 8 - 22 mg/dL [facility] CALCIUM, IONIZEDon 2 Calcium.ionized (Bld) [Moles/Vol] 1.21 mmol/L 1.10 - 1.40 mmol/L [facility] CBC panel Auto (Bld)on 07-31 Erythrocyte distribution width (RBC) [Ratio] 15.1 % High 11.5 - 14.5 % [facility] Hematocrit (Bld) [Volume fraction] 28.7 % Low 36.0 - 46.0 % [facility] Hemoglobin (Bld) [Mass/Vol] 9.9 g/dL Low 12.0 - 15.0 g/dL [facility] Interpretation and review of laboratory results Abnormal [facility] MCH (RBC) [Entitic mass] 28.8 pg 26.0 - 34.0 pg [facility] MCHC (RBC) [Mass/Vol] 34.6 g/dL 32.0 - 35.9 g/dL [facility] MCV (RBC) [Entitic vol] 83 fL 80 - 100 fL [facility] Platelet mean volume (Bld) [Entitic vol] 7.3 fL Low 7.5 - 11.2 fL [facility] Platelets (Bld) [#/Vol] 207 10*3/uL 150 - 400 K/uL [facility] RBC (Bld) [#/Vol] 3.45 10*6/uL Low [facility] WBC (Bld) [#/Vol] 9.5 10*3/uL 4.5 - 11.5 K/uL [facility] CO-OXIMETERon 07-31-2021 Carboxyhemoglobin (BldA) [Mass fraction] <0.7 <3.0 % [facility] H[facility]oc[facility] (BldA) [Volume fraction] 30.6 % Low 36.0 - 46.0 % [facility] Hemoglobin (Bld) [Mass/Vol] 9.9 g/dL Low 12.0 - 16.0 g/dL [facility] Interpretation and review of laboratory results Abnormal [facility] Methemoglobin (BldA) [Mass fraction] 1.5 % <3.0 [facility] Oxyhemoglobin (BldA) [Mass fraction] 95.9 % 95.0 - 100.0 % [facility] ELECTROLYTESon 07-31-2021 Chloride [Moles/Vol] 107 mmol/L 97 - 11 1 mmol/L [facility] Potassium [Moles/Vol] 4.1 mmol/L 3.3 - 5.3 mmol/L [facility] Sodium [Moles/Vol] 138 mmol/L 135 - 148 mmol/L [facility] GLUCOSE, WHOLE BLOODon 07-31 Glucose [Mass/Vol] 147 mg/dL High 68 - 98 mg/dL [facility] HEPATIC FUNCTION PANELon Albumin [Mass/Vol] 3.7 g/dL 3.4 - 5.1 g/dL [facility] ALP [Catalytic activity/Vol] 30 U/L Low [facility] ALT [Catalytic activity/Vol] 55 U/L [facility] AST [Catalytic activity/Vol] 102 U/L [facility] Bilirubin [Mass/Vol] 1.8 mg/dL High 0.1 - 1 .5 mg/dL [facility] Bilirubin.direct [Mass/Vol] 0.40 mg/dL High 0.10 - 0.30 mg/dL [facility] Protein [Mass/Vol] 4.7 g/dL Low 6.2 - 8.3 g/dL [facility] LACTIC ACIDon 07-31-2021 Lactate [Moles/Vol] 1.9 mmol/L 0.5 - 2. 0 mmol/L [facility] Laboratory - Chemistry and C hemistry - challengeOrdered By: Feliciano Cutler on 07-31-2021 HCO3 (Bld) [Moles/Vol] 21 mmol/L Low 22 - 28 mmol/L [facility] MAGNESIUMon 07-31-2021 Magnesium [Mass/Vol] 1.5 mg/dL Low 1.6 - 2 .8 mg/dL [facility] No Panel Informationon 07-31 Interpretation and review of laboratory results Abnormal [facility] Interpretation and review of laboratory results Normal [facility] Interpretation and review of laboratory results Abnormal [facility] BLOOD GAS, ARTERIALon 2021 Base excess Calc (Bld) [Moles/Vol] -6.1000 mmol/L Low -2.0 - 2.0 mmol/L [facility] CO2 (Bld) [Partial pressure] 37.4 mm[Hg] [facility] Oxygen (Bld) [Partial pressure] 202 mm[Hg] [facility] pH (Bld) 7.323 [pH] Low [facility] Base excess Calc (Bld) [Moles/Vol] -4.0000 mmol/L Low -2.0 - 2.0 mmol/L [facility] CO2 (Bld) [Partial pressure] 37.8 mm[Hg] [facility] Oxygen (Bld) [Partial pressure] 199 mm[Hg] High [facility] pH (Bld) 7.354 [pH] [facility] BLOOD GAS, ARTERIALOrdered B y: Melissa Moon on 07-30-2021 Base excess Calc (Bld) [Moles/Vol] -3.9000 mmol/L Low -2.0 - 2.0 mmol/L [facility] CO2 (Bld) [Partial pressure] 43.0 mm[Hg] [facility] Oxygen (Bld) [Partial pressure] 175 mm[Hg] High [facility] pH (Bld) 7.320 [pH] Low [facility] CALCIUM, IONIZEDon Calcium.ionized (Bld) [Moles/Vol] 1.15 mmol/L 1.10 - 1.40 mmol/L [facility] Calcium.ionized (Bld) [Moles/Vol] 1.06 mmol/L Low 1.10 - 1.40 mmol/L [facility] Calcium.ionized (Bld) [Moles/Vol] 1.11 mmol/L 1.10 - 1.40 mmol/L [facility] CO-OXIMETERon 07-30-2021 Carboxyhemoglobin (BldA) [Mass fraction] <0.7 <3.0 % [facility] Hematocrit (BldA) [Volume fraction] 29.5 % Low 36.0 - 46.0 % [facility] Hemoglobin (Bld) [Mass/Vol] 9.5 g/dL Low 12.0 - 16.0 g/dL [facility] Methemoglobin (BldA) [Mass fraction] 1.5 % <3.0 [facility] Oxyhemoglobin (BldA) [Mass fraction] 96.5 % 95.0 - 100.0 % [facility] Carboxyhemoglobin (BldA) [Mass fraction] <0.7 <3.0 % [facility] Hematocrit (BldA) [Volume fraction] 37.4 % 36.0 - 46.0 % [facility] Hemoglobin (Bld) [Mass/Vol] 12.2 g/dL 12.0 - 16.0 g/dL [facility] Methemoglobin (BldA) [Mass fraction] 1.3 % <3.0 [facility] Oxyhemoglobin (BldA) [Mass fraction] 96.9 % 95.0 - 100.0 % [facility] Carboxyhemoglobin (BldA) [Mass fraction] <0.7 <3.0 % [facility] Hematocrit (BldA) [Volume fraction] 36.6 % 36.0 - 46.0 % [facility] Hemoglobin (Bld) [Mass/Vol] 11.9 g/dL Low 12.0 - 16.0 g/dL [facility] Methemoglobin (BldA) [Mass fraction] 1.2 % <3.0 [facility] Oxyhemoglobin (BldA) [Mass fraction] 96.4 % 95.0 - 100.0 % [facility] ELECTROLYTESon 07-30-2021 Chloride [Moles/Vol] 110 mmol/L 97 - 11 1 mmol/L [facility] Potassium [Moles/Vol] 3.8 mmol/L 3.3 - 5.3 mmol/L [facility] Sodium [Moles/Vol] 138 mmol/L 135 - 148 mmol/L [facility] Chloride [Moles/Vol] 112 mmol/L High 97 - 11 1 mmol/L [facility] Potassium [Moles/Vol] 3.5 mmol/L 3.3 - 5.3 mmol/L [facility] Sodium [Moles/Vol] 135 mmol/L 135 - 148 mmol/L [facility] Chloride [Moles/Vol] 108 mmol/L 97 - 11 1 mmol/L [facility] Potassium [Moles/Vol] 3.9 mmol/L 3.3 - 5.3 mmol/L [facility] Sodium [Moles/Vol] 137 mmol/L 135 - 148 mmol/L [facility] FFPon 07-30-2021 BB Order Item Product status info to follow [facility] GLUCOSE, WHOLE BLOODon 07-30 Glucose [Mass/Vol] 170 mg/dL High 68 - 98 mg/dL [facility] Glucose [Mass/Vol] 187 mg/dL High 68 - 98 mg/dL [facility] Glucose [Mass/Vol] 192 mg/dL High 68 - 98 mg/dL [facility] LACTIC ACIDon 07-30-2021 Lactate [Moles/Vol] 1.9 mmol/L 0.5 - 2. 0 mmol/L [facility] Lactate [Moles/Vol] 1.3 mmol/L 0.5 - 2. 0 mmol/L [facility] Lactate [Moles/Vol] 1.5 mmol/L 0.5 - 2. 0 mmol/L [facility] bankon ABO and Rh group Nom (Bld) Blood group B Rh(D) positive [facility] Chemistry and C hemistry - challengeon 07-30-2021 HCO3 (Bld) [Moles/Vol] 19 mmol/L Low 22 - 28 mmol/L [facility] HCO3 (Bld) [Moles/Vol] 21 mmol/L Low 22 - 28 mmol/L [facility] Laboratory - Chemistry and C hemistry - challengeOrdered By: Melissa Moon on 07-30-2021 HCO3 (Bld) [Moles/Vol] 22 mmol/L 22 - 28 mmol/L [facility] No Panel Informationon 07-30 Interpretation and review of laboratory results Abnormal [facility] Interpretation and review of laboratory results Normal [facility] Interpretation and review of laboratory results Abnormal [facility] Interpretation and review of laboratory results Normal [facility] Interpretation and review of laboratory results Normal [facility] No Panel InformationOrdered By: Melissa Moon on 07-30-2021 Interpretation and review of laboratory results Abnormal [facility] RED BLOOD CELL COMPONENTon 0 07-30-2021 BB Order Item Product status info to follow [facility] BB Order Item Product status info to follow [facility] TRANSFUSE RED CELLSon 2021 [facility] TRANSFUSE RED CELLSOrdered B y: Adrian Bermudez on 07-30-2021 [facility] Work Phone: TYPE AND SCREENon 07-30-2021 Blood group antibody screen Ql Negative [facility] URINE HCG-IN OFFICEOrdered B y: Rachel Neville on 07-30-2021 HCG ( test) Ql (U) Negative Negative [facility] Interpretation and review of laboratory results Normal [facility] Negative Internal Control Negative Negative [facility] Positive Internal Control Positive Positive [facility] CBC panel Auto (Bld)on 07-15 Erythrocyte distribution width (RBC) [Ratio] 16.6 % High 11.5 - 14.5 % [facility] Hematocrit (Bld) [Volume fraction] 35.3 % Low 36.0 - 46.0 % [facility] Hemoglobin (Bld) [Mass/Vol] 11.7 g/dL Low 12.0 - 15.0 g/dL [facility] Interpretation and review of laboratory results Abnormal [facility] MCH (RBC) [Entitic mass] 28.1 pg 26.0 - 34.0 pg [facility] MCHC (RBC) [Mass/Vol] 33.2 g/dL 32.0 - 35.9 g/dL [facility] MCV (RBC) [Entitic vol] 85 fL 80 - 100 fL [facility] Platelet mean volume (Bld) [Entitic vol] 8.0 fL 7.5 - 11.2 fL [facility] Platelets (Bld) [#/Vol] 220 10*3/uL 150 - 400 K/uL [facility] RBC (Bld) [#/Vol] 4.18 10*6/uL [facility] WBC (Bld) [#/Vol] 7.3 10*3/uL 4.5 - 11.5 K/uL [facility] FERRITINon 07-15-2021 Ferritin [Mass/Vol] 14.2 ng/mL 10.3 - 219.0 ng/mL [facility] Interpretation and review of laboratory results Normal [facility] IRON AND TIBCon 07-15-2021 Interpretation and review of laboratory results Abnormal [facility] Iron [Mass/Vol] 35 ug/dL Low 45 - 160 ug/dL [facility] Iron binding capacity [Mass/Vol] 407 ug/mL 250 - 410 ug/mL [facility] Iron saturation [Mass fraction] 9 % Low 20 - 55 % [facility] Transferrin [Mass/Vol] 291 mg/dL 210 - 375 mg/dL [facility] PROTHROMBIN TIME AND INROrde red By: Jean Lee on 07-15-2021 INR Coag (PPP) [Relative time] 1.01 {INR} [facility] Interpretation and review of laboratory results Normal [facility] PT Coag (PPP) [Time] 11.0 s [facility] URINE HCG-IN OFFICEOrdered B y: Leyla Amy on 06-16-2021 HCG ( test) Ql (U) Negative Negative [facility] Interpretation and review of laboratory results Normal [facility] Negative Internal Control Negative Negative [facility] Positive Internal Control Positive Positive [facility] Covid-19 PCR (CVDTBH)on 06-04 SARS-CoV-2 (COVID-19) RNA PITO+probe Ql (Unsp spec) Not detected Normal NOT DETECTED [facility] Comment on above: Result Comment: This test is not yet approved or cleared by the [place] FDA. When there are no FDA-approved or cleared tests available, and other criteria are met, FDA can make tests available under an emergency access mechanism called an Emergency Use Authorization (EUA). The EUA for this test is supported by the [place] of Health and Human Service's (HHS's) declaration that circumstances exist to justify the emergency use of in vitro diagnostics for the detection and/or diagnosis of the virus that causes COVID-19. This EUA will remain in effect (meaning this test can be used) for the duration of the COVID-19 declaration justifying emergency of IVDs, unless it is terminated or revoked by FDA (after which the test may no longer be used). When diagnostic testing is negative, the possibility of a false negative should be considered in the context of a patient's recent exposures and the presence of clinical signs and symptoms consistent with SARS-CoV-2. Performed By: #### [facility] #### [facility] [address] [place] [address] Dr. Toy Macario CBC AUTO DIFFon 04-22-2021 BASO # 0.1 103/ul Normal 0.0-0.1 [facility] Comment on above: Performed By: #### C BC #### [facility] [address] [place] [address] Dr. Toy Macario Basophils/100 WBC (Bld) 0.8 % Normal 0.2-2.0 [facility] Comment on above: Performed By: #### C BC #### [facility] [address] [place] [address] Dr. Toy Macario EO # 0.2 103/ul Normal 0.0-0.7 [facility] Comment on above: Performed By: #### C BC #### [facility] [address] [place] [address] Dr. Toy Macario Eosinophils/100 WBC (Bld) 2.5 % Normal 0.9-7.0 [facility] Comment on above: Performed By: #### C BC #### [facility] [address] [place] [address] Dr. Toy Macario Erythrocyte distribution width (RBC) [Ratio] 14.3 % Normal 11.0-15.0 [facility] Comment on above: Performed By: #### C BC #### [facility] [address] [address] [address] Toy Macario Hematocrit (Bld) [Volume fraction] 26.9 % Critically low 36.0-48.0 [facility] Comment on above: Performed By: #### C BC #### [facility] [address] [place] [address] Dr. Toy Macario Hemoglobin (Bld) [Mass/Vol] 7.7 g/dL Critically low 12.0-16.0 [facility] Comment on above: Performed By: #### C BC #### [facility] [address] [place] [address] Dr. Toy Macario IG # 0.04 10e3/ul Critically high 0.00-0.03 [facility] Comment on above: Performed By: #### C BC #### [facility] [address] [place] [address] Dr. Toy Macario IG % 0.7 % Critically high 0.0-0.5 [facility] Comment on above: Performed By: #### C BC #### [facility] [address] [place] [address] Dr. Toy Macario LYMPH # 1.2 103/ul Normal 1.2-3.8 [facility] Comment on above: Performed By: #### C BC #### [facility] [address] [place] [address] Dr. Toy Macario Lymphocytes/100 WBC (Bld) 19.2 % Critically low 20.5-60.0 [facility] Comment on above: Performed By: #### C BC #### [facility] [address] [place] [address] Dr. Toy Macario MANUAL DIFF REQ NO Normal [facility] Comment on above: Performed By: #### C BC #### [facility] [address] [place] [address] Dr. Toy Macario MCH (RBC) [Entitic mass] 27.6 pg Normal 26.7-34.0 [facility] Comment on above: Performed By: #### C BC #### [facility] [address] [place] [address] Dr. Toy Macario MCHC (RBC) [Mass/Vol] 28.6 g/dL Critically low 29.9-35.2 [facility] Comment on above: Performed By: #### C BC #### [facility] [address] [address] [address] Toy Macario MCV (RBC) [Entitic vol] 96.4 fL Normal 81.0-99.0 [facility] Comment on above: Performed By: #### C BC #### [facility] [address] [address] [address] Toy Macario MONO # 0.4 103/ul Normal 0.3-0.8 [facility] Comment on above: Performed By: #### C BC #### [facility] [address] [place] [address] Dr. Toy Macario Monocytes/100 WBC (Bld) 7.2 % Normal 1.7-12.0 [facility] Comment on above: Performed By: #### C BC #### [facility] [address] [place] [address] Dr. Toy Macario NEUT # 4.3 103/ul Normal 1.4-6.5 [facility] Comment on above: Performed By: #### C BC #### [facility] [address] [place] [address] Dr. Toy Macario Neutrophils/100 WBC (Bld) 69.6 % Normal 43.0-75.0 [facility] Comment on above: Performed By: #### C BC #### [facility] [address] [place] [address] Dr. Toy Macario Platelet mean volume (Bld) [Entitic vol] 10.0 fL Normal 9.5-13.5 [facility] Comment on above: Performed By: #### C BC #### [facility] [address] [place] [address] Dr. Toy Macario PLT 238 103/ul Normal 150-450 [facility] Comment on above: Performed By: #### C BC #### [facility] [address] [place] [address] Dr. Toy Macario RBC 2.79 106/ul Critically low 4.20-5.40 [facility] Comment on above: Performed By: #### C BC #### [facility] [address] [place] [address] Dr. Toy Macario WBC 6.1 103/ul Normal 4.0-11.0 [facility] Comment on above: Performed By: #### C BC #### [facility] [address] [place] [address] Dr. Toy Macario LIPASEon 04-22-2021 Lipase [Catalytic activity/Vol] 712.0 U/L Critically high 23.0-300.0 [facility] Comment on above: Performed By: #### L IPA, CMP #### [facility] [address] [place] [address] Dr. Toy Macario MAGNESIUMon 04-22-2021 Magnesium [Mass/Vol] 2.6 mg/dL Critically high 1.6-2.3 [facility] Comment on above: Performed By: #### L IPA, CMP #### [facility] [address] [place] [address] Dr. Toy Macario PHOSPHORUSon 04-22-2021 Phosphate [Mass/Vol] 3.8 mg/dL Normal 2.5-4.5 [facility] Comment on above: Performed By: #### L IPA, CMP #### [facility] [address] [place] [address] Dr. Toy Macario POINT OF CARE GLUCOSEon 04-06 Glucose [Mass/Vol] 114 mg/dL Critically high 74-106 [facility] Comment on above: Performed By: #### L IPA, CMP #### [facility] [address] [place] [address] Dr. Toy Macario Glucose [Mass/Vol] 123 mg/dL Critically high 74-106 [facility] Comment on above: Performed By: #### L IPA, CMP #### [facility] [address] [place] [address] Dr. Toy Macario Glucose [Mass/Vol] 131 mg/dL Critically high 74-106 [facility] Comment on above: Performed By: #### L IPA, CMP #### [facility] [address] [address] [address] Toy Macario PROF 14(COMP METB)on 022 Albumin [Mass/Vol] 1.9 g/dL Critically low 3.5-5.0 [facility] Comment on above: Performed By: #### L IPA, CMP #### [facility] [address] [place] [address] Dr. Toy Macario Albumin/Globulin [Mass ratio] 0.5 {ratio} Normal [facility] Comment on above: Performed By: #### L IPA, CMP #### [facility] [address] [place] [address] Dr. Toy Macario ALP [Catalytic activity/Vol] 60 U/L Normal 38-126 [facility] Comment on above: Performed By: #### L IPA, CMP #### [facility] [address] [place] [address] Dr. Toy Macario ALT [Catalytic activity/Vol] 14 U/L Normal 9-52 [facility] Comment on above: Performed By: #### L IPA, CMP #### [facility] [address] [place] [address] Dr. Toy Macario Anion gap [Moles/Vol] 12.7 mmol/L Normal [facility] Comment on above: Performed By: #### L IPA, CMP #### [facility] [address] [address] [address] Toy Macario AST [Catalytic activity/Vol] 13 U/L Critically low 14-36 [facility] Comment on above: Performed By: #### L IPA, CMP #### [facility] [address] [place] [address] Dr. Toy Macario Bilirubin [Mass/Vol] 0.3 mg/dL Normal 0.2-1.3 [facility] Comment on above: Performed By: #### L IPA, CMP #### [facility] [address] [place] [address] Dr. Toy Macario Calcium [Mass/Vol] 8.6 mg/dL Normal 8.4-10.2 [facility] Comment on above: Performed By: #### L IPA, CMP #### [facility] [address] [place] [address] Dr. Toy Macario Chloride [Moles/Vol] 106 mmol/L Normal 98-107 [facility] Comment on above: Performed By: #### L IPA, CMP #### [facility] [address] [place] [address] Dr. Toy Macario CO2 [Moles/Vol] 26.9 mmol/L Normal 22.0-30.0 [facility] Comment on above: Performed By: #### L IPA, CMP #### [facility] [address] [place] [address] Dr. Toy Macario Creatinine [Mass/Vol] 0.59 mg/dL Normal 0.52-1.04 [facility] Comment on above: Performed By: #### L IPA, CMP #### [facility] [address] [place] [address] Dr. Toy Macario EGFR-AF FAROESE >60 Normal >=60 [facility] Comment on above: Performed By: #### L IPA, CMP #### [facility] [address] [place] [address] Dr. Toy Macario EGFR-NON AF FAROESE >60 Normal >=60 [facility] Comment on above: Performed By: #### L IPA, CMP #### [facility] [address] [place] [address] Dr. Toy Macario Globulin (S) [Mass/Vol] 4.0 g/dL Normal [facility] Comment on above: Performed By: #### L IPA, CMP #### [facility] [address] [place] [address] Dr. Toy Macario Glucose [Mass/Vol] 109 mg/dL Critically high 74-106 [facility] Comment on above: Performed By: #### L IPA, CMP #### [facility] [address] [place] [address] Dr. Toy Macario Potassium [Moles/Vol] 3.6 mmol/L Normal 3.4-5.0 [facility] Comment on above: Performed By: #### L IPA, CMP #### [facility] [address] [place] [address] Dr. Toy Macario Protein [Mass/Vol] 5.9 g/dL Critically low 6.1-8.2 Th [facility] Comment on above: Performed By: #### L IPA, CMP #### [facility] [address] [place] [address] Dr. Toy Macario Sodium [Moles/Vol] 142 mmol/L Normal 137-145 [facility] Comment on above: Performed By: #### L IPA, CMP #### [facility] [address] [place] [address] Dr. Toy Macario Urea nitrogen [Mass/Vol] 9.0 mg/dL Normal 7.0-17.0 [facility] Comment on above: Performed By: #### L IPA, CMP #### [facility] [address] [place] [address] Dr. Toy Macario Urea nitrogen/Creatinine [Mass ratio] 15.3 mg/mg Normal [facility] Comment on above: Performed By: #### L IPA, CMP #### [facility] [address] [place] [address] Dr. Toy Macario TRIGLYCERIDEon 04-22-2021 Triglyceride [Mass/Vol] 84 mg/dL Normal <=150 [facility] Comment on above: Performed By: #### L IPA, CMP #### [facility] [address] [place] [address] Dr. Toy Macario CBC AUTO DIFFon 04-21-2021 BASO # 0.1 103/ul Normal 0.0-0.1 [facility] Comment on above: Performed By: #### C VDTBH #### [facility] [address] [place] [address] Dr. Toy Macario Basophils/100 WBC (Bld) 0.7 % Normal 0.2-2.0 [facility] Comment on above: Performed By: #### C VDTBH #### [facility] [address] [place] [address] Dr. Toy Macario EO # 0.1 103/ul Normal 0.0-0.7 [facility] Comment on above: Performed By: #### C VDTBH #### [facility] [address] [place] [address] Dr. Toy Macario Eosinophils/100 WBC (Bld) 1.5 % Normal 0.9-7.0 [facility] Comment on above: Performed By: #### C VDTBH #### [facility] [address] [place] [address] Dr. Toy Macario Erythrocyte distribution width (RBC) [Ratio] 13.8 % Normal 11.0-15.0 [facility] Comment on above: Performed By: #### C VDTBH #### [facility] [address] [place] [address] Dr. Toy Macario Hematocrit (Bld) [Volume fraction] 26.3 % Critically low 36.0-48.0 [facility] Comment on above: Performed By: #### C VDTBH #### [facility] [address] [place] [address] Dr. Toy Macario Hemoglobin (Bld) [Mass/Vol] 8.2 g/dL Critically low 12.0-16.0 [facility] Comment on above: Performed By: #### C VDTBH #### [facility] [address] [place] [address] Dr. Toy Macario IG # 0.13 10e3/ul Critically high 0.00-0.03 [facility] Comment on above: Performed By: #### C VDTBH #### [facility] [address] [place] [address] Dr. Toy Macario IG % 1.8 % Critically high 0.0-0.5 [facility] Comment on above: Performed By: #### C VDTBH #### [facility] [address] [place] [address] Dr. Toy Macario LYMPH # 1.3 103/ul Normal 1.2-3.8 [facility] Comment on above: Performed By: #### C VDTBH #### [facility] [address] [place] [address] Dr. Toy Macario Lymphocytes/100 WBC (Bld) 18.6 % Critically low 20.5-60.0 [facility] Comment on above: Performed By: #### C VDTBH #### [facility] [address] [place] [address] Dr. Toy Macario MANUAL DIFF REQ NO Normal [facility] Comment on above: Performed By: #### C VDTBH #### [facility] [address] [place] [address] Dr. Toy Macario MCH (RBC) [Entitic mass] 27.7 pg Normal 26.7-34.0 [facility] Comment on above: Performed By: #### C VDTB #### [facility] [address] [place] [address] Dr. Toy Macario MCHC (RBC) [Mass/Vol] 31.2 g/dL Normal 29.9-35.2 [facility] Comment on above: Performed By: #### C VDTBH #### [facility] [address] [place] [address] Dr. Toy Macario MCV (RBC) [Entitic vol] 88.9 fL Normal 81.0-99.0 [facility] Comment on above: Performed By: #### C VDTBH #### [facility] [address] [place] [address] Dr. Toy Macario MONO # 0.4 103/ul Normal 0.3-0.8 [facility] Comment on above: Performed By: #### C VDTBH #### [facility] [address] [place] [address] Dr. Toy Macario Monocytes/100 WBC (Bld) 6.0 % Normal 1.7-12.0 [facility] Comment on above: Performed By: #### C VDTBH #### [facility] [address] [place] [address] Dr. Toy Macario NEUT # 5.2 103/ul Normal 1.4-6.5 [facility] Comment on above: Performed By: #### C VDTBH #### [facility] [address] [address] [address] Toy Macario Neutrophils/100 WBC (Bld) 71.4 % Normal 43.0-75.0 [facility] Comment on above: Performed By: #### C VDTBH #### [facility] [address] [place] [address] Dr. Toy Macario Platelet mean volume (Bld) [Entitic vol] 9.9 fL Normal 9.5-13.5 [facility] Comment on above: Performed By: #### C VDTBH #### [facility] [address] [place] [address] Dr. Toy Macario PLT 245 103/ul Normal 150-450 [facility] Comment on above: Performed By: #### C VDTBH #### [facility] [address] [place] [address] Dr. Toy Macario RBC 2.96 106/ul Critically low 4.20-5.40 [facility] Comment on above: Performed By: #### C VDTBH #### [facility] [address] [place] [address] Dr. Toy Macario WBC 7.2 103/ul Normal 4.0-11.0 [facility] Comment on above: Performed By: #### C VDTBH #### [facility] [address] [place] [address] Dr. Toy Macario LIPASEon 04-21-2021 Lipase [Catalytic activity/Vol] 645.0 U/L Critically high 23.0-300.0 [facility] Comment on above: Performed By: #### O DEVENDRA #### [facility] [address] [place] [address] Dr. Toy Macario MAGNESIUMon 04-21-2021 Magnesium [Mass/Vol] 2.0 mg/dL Normal 1.6-2.3 [facility] Comment on above: Performed By: #### O DEVENDRA #### [facility] [address] [place] [address] Dr. Toy Macario PHOSPHORUSon 04-21-2021 Phosphate [Mass/Vol] 3.6 mg/dL Normal 2.5-4.5 [facility] Comment on above: Performed By: #### O DEVENDRA #### [facility] [address] [place] [address] Dr. Toy Macario POTASSIUMon 04-21-2021 Potassium [Moles/Vol] 3.5 mmol/L Normal 3.4-5.0 [facility] Comment on above: Performed By: #### K #### [facility] [address] [place] [address] Dr. Toy Macario PROF 14(COMP METB)on 022 Albumin [Mass/Vol] 1.8 g/dL Critically low 3.5-5.0 [facility] Comment on above: Performed By: #### O DEVENDRA #### [facility] [address] [place] [address] Dr. Toy Macario Albumin/Globulin [Mass ratio] 0.4 {ratio} Normal [facility] Comment on above: Performed By: #### O DEVENDRA #### [facility] [address] [place] [address] Dr. Toy Macario ALP [Catalytic activity/Vol] 65 U/L Normal 38-126 [facility] Comment on above: Performed By: #### O DEVENDRA #### [facility] [address] [place] [address] Dr. Toy Macario ALT [Catalytic activity/Vol] 13 U/L Normal 9-52 [facility] Comment on above: Performed By: #### O DEVENDRA #### [facility] [address] [place] [address] Dr. Toy Macario Anion gap [Moles/Vol] 8.2 mmol/L Normal [facility] Comment on above: Performed By: #### O DEVENDRA #### [facility] [address] [place] [address] Dr. Toy Macario AST [Catalytic activity/Vol] 14 U/L Normal 14-36 [facility] Comment on above: Performed By: #### O DEVENDRA #### [facility] [address] [place] [address] Dr. Toy Macario Bilirubin [Mass/Vol] 0.3 mg/dL Normal 0.2-1.3 [facility] Comment on above: Performed By: #### O DEVENDRA #### [facility] [address] [place] [address] Dr. Toy Macario Calcium [Mass/Vol] 8.3 mg/dL Critically low 8.4-10.2 Th [facility] Comment on above: Performed By: #### O DEVENDRA #### [facility] [address] [place] [address] Dr. Toy Macario Chloride [Moles/Vol] 106 mmol/L Normal 98-107 [facility] Comment on above: Performed By: #### O DEVENDRA #### [facility] [address] [place] [address] Dr. Toy Macario CO2 [Moles/Vol] 27.7 mmol/L Normal 22.0-30.0 [facility] Comment on above: Performed By: #### O DEVENDRA #### [facility] [address] [place] [address] Dr. Toy Macario Creatinine [Mass/Vol] 0.59 mg/dL Normal 0.52-1.04 [facility] Comment on above: Performed By: #### O DEVENDRA #### [facility] [address] [place] [address] Dr. Toy Macario EGFR-AF FAROESE >60 Normal >=60 [facility] Comment on above: Performed By: #### O DEVENDRA #### [facility] [address] [place] [address] Dr. Toy Macario EGFR-NON AF FAROESE >60 Normal >=60 [facility] Comment on above: Performed By: #### O DEVENDRA #### [facility] [address] [place] [address] Dr. Toy Macario Globulin (S) [Mass/Vol] 4.3 g/dL Normal [facility] Comment on above: Performed By: #### O DEVENDRA #### [facility] [address] [place] [address] Dr. Toy Macario Glucose [Mass/Vol] 117 mg/dL Critically high 74-106 [facility] Comment on above: Performed By: #### O DEVENDRA #### [facility] [address] [place] [address] Dr. Toy Macario Potassium [Moles/Vol] 2.9 mmol/L Critically low 3.4-5.0 [facility] Comment on above: Result Comment: Test Repeated. Criticall Value Verified Performed By: #### O DEVENDRA #### [facility] [address] [place] [address] Dr. Toy Macario Protein [Mass/Vol] 6.1 g/dL Normal 6.1-8.2 [facility] Comment on above: Performed By: #### O DEVENDRA #### [facility] [address] [place] [address] Dr. Toy Macario Sodium [Moles/Vol] 139 mmol/L Normal 137-145 [facility] Comment on above: Performed By: #### O DEVENDRA #### [facility] [address] [place] [address] Dr. Toy Macario Urea nitrogen [Mass/Vol] 7.0 mg/dL Normal 7.0-17.0 [facility] Comment on above: Performed By: #### O DEVENDRA #### [facility] [address] [place] [address] Dr. Toy Macario Urea nitrogen/Creatinine [Mass ratio] 11.9 mg/mg Normal [facility] Comment on above: Performed By: #### O DEVENDRA #### [facility] [address] [place] [address] Dr. Toy Macario TRIGLYCERIDEon 04-21-2021 Triglyceride [Mass/Vol] 182 mg/dL Critically high <=150 [facility] Comment on above: Performed By: #### L IPA, CMP #### [facility] [address] [place] [address] Dr. Toy Macario CBC AUTO DIFFon 04-20-2021 BASO # 0.0 103/ul Normal 0.0-0.1 [facility] Comment on above: Performed By: #### C BC #### [facility] [address] [place] [address] Dr. Toy Macario Basophils/100 WBC (Bld) 0.3 % Normal 0.2-2.0 [facility] Comment on above: Performed By: #### C BC #### [facility] [address] [place] [address] Dr. Toy Macario EO # 0.1 103/ul Normal 0.0-0.7 [facility] Comment on above: Performed By: #### C BC #### [facility] [address] [place] [address] Dr. Toy Macario Eosinophils/100 WBC (Bld) 1.2 % Normal 0.9-7.0 [facility] Comment on above: Performed By: #### C BC #### [facility] [address] [place] [address] Dr. Toy Macario Erythrocyte distribution width (RBC) [Ratio] 13.9 % Normal 11.0-15.0 [facility] Comment on above: Performed By: #### C BC #### [facility] [address] [place] [address] Dr. Toy Macario Hematocrit (Bld) [Volume fraction] 26.4 % Critically low 36.0-48.0 [facility] Comment on above: Performed By: #### C BC #### [facility] [address] [place] [address] Dr. Toy Macario Hemoglobin (Bld) [Mass/Vol] 8.3 g/dL Critically low 12.0-16.0 [facility] Comment on above: Performed By: #### C BC #### [facility] [address] [place] [address] Dr. Toy Macario IG # 0.03 10e3/ul Normal 0.00-0.03 [facility] Comment on above: Performed By: #### C BC #### [facility] [address] [place] [address] Dr. Toy Macario IG % 0.5 % Normal 0.0-0.5 [facility] Comment on above: Performed By: #### C BC #### [facility] [address] [place] [address] Dr. Toy Macario LYMPH # 1.1 103/ul Critically low 1.2-3.8 [facility] Comment on above: Performed By: #### C BC #### [facility] [address] [place] [address] Dr. Toy Macario Lymphocytes/100 WBC (Bld) 18.3 % Critically low 20.5-60.0 [facility] Comment on above: Performed By: #### C BC #### [facility] [address] [place] [address] Dr. Toy Macario MANUAL DIFF REQ NO Normal [facility] Comment on above: Performed By: #### C BC #### [facility] [address] [place] [address] Dr. Toy Macario MCH (RBC) [Entitic mass] 27.7 pg Normal 26.7-34.0 [facility] Comment on above: Performed By: #### C BC #### [facility] [address] [place] [address] Dr. Toy Macario MCHC (RBC) [Mass/Vol] 31.4 g/dL Normal 29.9-35.2 [facility] Comment on above: Performed By: #### C BC #### [facility] [address] [place] [address] Dr. Toy Macario MCV (RBC) [Entitic vol] 88.0 fL Normal 81.0-99.0 [facility] Comment on above: Performed By: #### C BC #### [facility] [address] [place] [address] Dr. Toy Macario MONO # 0.4 103/ul Normal 0.3-0.8 [facility] Comment on above: Performed By: #### C BC #### [facility] [address] [place] [address] Dr. Toy Macario Monocytes/100 WBC (Bld) 6.3 % Normal 1.7-12.0 [facility] Comment on above: Performed By: #### C BC #### [facility] [address] [place] [address] Dr. Toy Macario NEUT # 4.3 103/ul Normal 1.4-6.5 [facility] Comment on above: Performed By: #### C BC #### [facility] [address] [place] [address] Dr. Toy Macario Neutrophils/100 WBC (Bld) 73.4 % Normal 43.0-75.0 [facility] Comment on above: Performed By: #### C BC #### [facility] [address] [place] [address] Dr. Toy Macario Platelet mean volume (Bld) [Entitic vol] 9.3 fL Critically low 9.5-13.5 [facility] Comment on above: Performed By: #### C BC #### [facility] [address] [place] [address] Dr. Toy Macario PLT 242 103/ul Normal 150-450 [facility] Comment on above: Performed By: #### C BC #### [facility] [address] [place] [address] Dr. Toy Macario RBC 3.00 106/ul Critically low 4.20-5.40 [facility] Comment on above: Performed By: #### C BC #### [facility] [address] [place] [address] Dr. Toy Macario WBC 5.8 103/ul Normal 4.0-11.0 [facility] Comment on above: Performed By: #### C BC #### [facility] [address] [place] [address] Dr. Toy Macario LIPASEon 04-20-2021 Lipase [Catalytic activity/Vol] 519.0 U/L Critically high 23.0-300.0 [facility] Comment on above: Performed By: #### L IPA, CMP #### [facility] [address] [place] [address] Dr. Toy Macario POINT OF CARE GLUCOSEon 04-06 Glucose [Mass/Vol] 104 mg/dL Normal 74-106 [facility] Comment on above: Performed By: #### C VDTBH #### [facility] [address] [address] [address] Toy Macario Glucose [Mass/Vol] 105 mg/dL Normal 74-106 [facility] Comment on above: Performed By: #### L IPA, CMP #### [facility] [address] [place] [address] Dr. Toy Macario Glucose [Mass/Vol] 109 mg/dL Critically high 74-106 [facility] Comment on above: Performed By: #### O DEVENDRA #### [facility] [address] [address] [address] Toy Macario PROF 14(COMP METB)on 022 Albumin [Mass/Vol] 1.8 g/dL Critically low 3.5-5.0 [facility] Comment on above: Performed By: #### L IPA, CMP #### [facility] [address] [place] [address] Dr. Toy Macario Albumin/Globulin [Mass ratio] 0.4 {ratio} Normal [facility] Comment on above: Performed By: #### L IPA, CMP #### [facility] [address] [place] [address] Dr. Toy Macario ALP [Catalytic activity/Vol] 67 U/L Normal 38-126 [facility] Comment on above: Performed By: #### L IPA, CMP #### [facility] [address] [place] [address] Dr. Toy Macario ALT [Catalytic activity/Vol] 17 U/L Normal 9-52 [facility] Comment on above: Performed By: #### L IPA, CMP #### [facility] [address] [place] [address] Dr. Toy Macario Anion gap [Moles/Vol] 8.9 mmol/L Normal [facility] Comment on above: Performed By: #### L IPA, CMP #### [facility] [address] [place] [address] Dr. Toy Macario AST [Catalytic activity/Vol] 15 U/L Normal 14-36 [facility] Comment on above: Performed By: #### L IPA, CMP #### [facility] [address] [address] [address] Toy Macario Bilirubin [Mass/Vol] 0.3 mg/dL Normal 0.2-1.3 [facility] Comment on above: Performed By: #### L IPA, CMP #### [facility] [address] [place] [address] Dr. Toy Macario Calcium [Mass/Vol] 8.8 mg/dL Normal 8.4-10.2 [facility] Comment on above: Performed By: #### L IPA, CMP #### [facility] [address] [place] [address] Dr. Toy Macario Chloride [Moles/Vol] 105 mmol/L Normal 98-107 [facility] Comment on above: Performed By: #### L IPA, CMP #### [facility] [address] [place] [address] Dr. Toy Macario CO2 [Moles/Vol] 27.3 mmol/L Normal 22.0-30.0 [facility] Comment on above: Performed By: #### L IPA, CMP #### [facility] [address] [place] [address] Dr. Toy Macario Creatinine [Mass/Vol] 0.56 mg/dL Normal 0.52-1.04 [facility] Comment on above: Performed By: #### L IPA, CMP #### [facility] [address] [place] [address] Dr. Toy Macario EGFR-AF FAROESE >60 Normal >=60 [facility] Comment on above: Performed By: #### L IPA, CMP #### [facility] [address] [place] [address] Dr. Toy Macario EGFR-NON AF FAROESE >60 Normal >=60 [facility] Comment on above: Performed By: #### L IPA, CMP #### [facility] [address] [place] [address] Dr. Toy Macario Globulin (S) [Mass/Vol] 4.5 g/dL Normal [facility] Comment on above: Performed By: #### L IPA, CMP #### [facility] [address] [place] [address] Dr. Toy Macario Glucose [Mass/Vol] 103 mg/dL Normal 74-106 [facility] Comment on above: Performed By: #### L IPA, CMP #### [facility] [address] [address] [address] Toy Macario Potassium [Moles/Vol] 3.2 mmol/L Critically low 3.4-5.0 [facility] Comment on above: Performed By: #### L IPA, CMP #### [facility] [address] [place] [address] Dr. Toy Macario Protein [Mass/Vol] 6.3 g/dL Normal 6.1-8.2 [facility] Comment on above: Performed By: #### L IPA, CMP #### [facility] [address] [place] [address] Dr. Toy Macario Sodium [Moles/Vol] 138 mmol/L Normal 137-145 [facility] Comment on above: Performed By: #### L IPA, CMP #### [facility] [address] [place] [address] Dr. Toy Macario Urea nitrogen [Mass/Vol] 7.0 mg/dL Normal 7.0-17.0 [facility] Comment on above: Performed By: #### L IPA, CMP #### [facility] [address] [place] [address] Dr. Toy Macario Urea nitrogen/Creatinine [Mass ratio] 12.5 mg/mg Normal [facility] Comment on above: Performed By: #### L IPA, CMP #### [facility] [address] [place] [address] Dr. Toy Macario CBC AUTO DIFFon 04-19-2021 BASO # 0.0 103/ul Normal 0.0-0.1 [facility] Comment on above: Performed By: #### C MP, LIPA #### [facility] [address] [place] [address] Dr. Toy Macario Basophils/100 WBC (Bld) 0.8 % Normal 0.2-2.0 [facility] Comment on above: Performed By: #### C MP, LIPA #### [facility] [address] [place] [address] Dr. Toy Macario EO # 0.1 103/ul Normal 0.0-0.7 [facility] Comment on above: Performed By: #### C MP, LIPA #### [facility] [address] [place] [address] Dr. Toy Macario Eosinophils/100 WBC (Bld) 1.9 % Normal 0.9-7.0 [facility] Comment on above: Performed By: #### C MP, LIPA #### [facility] [address] [place] [address] Dr. Toy Macario Erythrocyte distribution width (RBC) [Ratio] 14.0 % Normal 11.0-15.0 [facility] Comment on above: Performed By: #### C MP, LIPA #### [facility] [address] [place] [address] Dr. Toy Macario Hematocrit (Bld) [Volume fraction] 27.6 % Critically low 36.0-48.0 [facility] Comment on above: Performed By: #### C MP, LIPA #### [facility] [address] [place] [address] Dr. Toy Macario Hemoglobin (Bld) [Mass/Vol] 8.5 g/dL Critically low 12.0-16.0 [facility] Comment on above: Performed By: #### C MP, LIPA #### [facility] [address] [place] [address] Dr. Toy Macario IG # 0.03 10e3/ul Normal 0.00-0.03 [facility] Comment on above: Performed By: #### C MP, LIPA #### [facility] [address] [place] [address] Dr. Toy Macario IG % 0.6 % Critically high 0.0-0.5 [facility] Comment on above: Performed By: #### C MP, LIPA #### [facility] [address] [place] [address] Dr. Toy Macario LYMPH # 1.0 103/ul Critically low 1.2-3.8 [facility] Comment on above: Performed By: #### C MP, LIPA #### [facility] [address] [place] [address] Dr. Toy Macario Lymphocytes/100 WBC (Bld) 17.9 % Critically low 20.5-60.0 [facility] Comment on above: Performed By: #### C MP, LIPA #### [facility] [address] [place] [address] Dr. Toy Macario MANUAL DIFF REQ NO Normal [facility] Comment on above: Performed By: #### C MP, LIPA #### [facility] [address] [place] [address] Dr. Toy Macario MCH (RBC) [Entitic mass] 27.4 pg Normal 26.7-34.0 [facility] Comment on above: Performed By: #### C MP, LIPA #### [facility] [address] [place] [address] Dr. Toy Macario MCHC (RBC) [Mass/Vol] 30.8 g/dL Normal 29.9-35.2 [facility] Comment on above: Performed By: #### C MP, LIPA #### [facility] [address] [place] [address] Dr. Toy Macario MCV (RBC) [Entitic vol] 89.0 fL Normal 81.0-99.0 [facility] Comment on above: Performed By: #### C MP, LIPA #### [facility] [address] [place] [address] Dr. Toy Macario MONO # 0.4 103/ul Normal 0.3-0.8 [facility] Comment on above: Performed By: #### C MP, LIPA #### [facility] [address] [place] [address] Dr. Toy Macario Monocytes/100 WBC (Bld) 7.7 % Normal 1.7-12.0 [facility] Comment on above: Performed By: #### C MP, LIPA #### [facility] [address] [place] [address] Dr. Toy Macario NEUT # 3.8 103/ul Normal 1.4-6.5 [facility] Comment on above: Performed By: #### C LESLIE, LIPA #### [facility] [address] [place] [address] Dr. Toy Macario Neutrophils/100 WBC (Bld) 71.1 % Normal 43.0-75.0 [facility] Comment on above: Performed By: #### C LESLIE, LIPA #### [facility] [address] [place] [address] Dr. Toy Macario Platelet mean volume (Bld) [Entitic vol] 9.4 fL Critically low 9.5-13.5 [facility] Comment on above: Performed By: #### C LESLIE, LIPA #### [facility] [address] [place] [address] Dr. Toy Macario PLT 259 103/ul Normal 150-450 [facility] Comment on above: Performed By: #### C LESLIE, LIPA #### [facility] [address] [place] [address] Dr. Toy Macario RBC 3.10 106/ul Critically low 4.20-5.40 [facility] Comment on above: Performed By: #### C LESLIE, LIPA #### [facility] [address] [place] [address] Dr. Toy Macario WBC 5.3 103/ul Normal 4.0-11.0 [facility] Comment on above: Performed By: #### C LESLIE, LIPA #### [facility] [address] [place] [address] Dr. Toy Macario LIPASEon 04-19-2021 Lipase [Catalytic activity/Vol] 447.0 U/L Critically high 23.0-300.0 [facility] Comment on above: Performed By: #### C LESLIE, LIPA #### [facility] [address] [place] [address] Dr. Toy Macario POINT OF CARE GLUCOSEon 04-06 Glucose [Mass/Vol] 107 mg/dL Critically high 74-106 [facility] Comment on above: Performed By: #### L IPA, CMP #### [facility] [address] [place] [address] Dr. Toy Macario PROF 14(COMP METB)on 022 Albumin [Mass/Vol] 1.8 g/dL Critically low 3.5-5.0 [facility] Comment on above: Performed By: #### C MP, LIPA #### [facility] [address] [place] [address] Dr. Toy Macario Albumin/Globulin [Mass ratio] 0.4 {ratio} Normal [facility] Comment on above: Performed By: #### C MP, LIPA #### [facility] [address] [place] [address] Dr. Toy Macario ALP [Catalytic activity/Vol] 81 U/L Normal 38-126 [facility] Comment on above: Performed By: #### C MP, LIPA #### [facility] [address] [place] [address] Dr. Toy Macario ALT [Catalytic activity/Vol] 27 U/L Normal 9-52 [facility] Comment on above: Performed By: #### C MP, LIPA #### [facility] [address] [place] [address] Dr. Toy Macario Anion gap [Moles/Vol] 9.3 mmol/L Normal [facility] Comment on above: Performed By: #### C MP, LIPA #### [facility] [address] [place] [address] Dr. Toy Macario AST [Catalytic activity/Vol] 21 U/L Normal 14-36 [facility] Comment on above: Performed By: #### C MP, LIPA #### [facility] [address] [place] [address] Dr. Toy Macario Bilirubin [Mass/Vol] 0.3 mg/dL Normal 0.2-1.3 [facility] Comment on above: Performed By: #### C MP, LIPA #### [facility] [address] [place] [address] Dr. Toy Macario Calcium [Mass/Vol] 9.0 mg/dL Normal 8.4-10.2 [facility] [place] Comment on above: Performed By: #### C MP, LIPA #### [facility] [address] [place] [address] Dr. Toy Macario Chloride [Moles/Vol] 105 mmol/L Normal 98-107 [facility] Comment on above: Performed By: #### C MP, LIPA #### [facility] [address] [place] [address] Dr. Toy Macario CO2 [Moles/Vol] 27.9 mmol/L Normal 22.0-30.0 [facility] Comment on above: Performed By: #### C MP, LIPA #### [facility] [address] [place] [address] Dr. Toy Macario Creatinine [Mass/Vol] 0.61 mg/dL Normal 0.52-1.04 [facility] Comment on above: Performed By: #### C MP, LIPA #### [facility] [address] [place] [address] Dr. Toy Macario EGFR-AF FAROESE >60 Normal >=60 [facility] Comment on above: Performed By: #### C MP, LIPA #### [facility] [address] [place] [address] Dr. Toy Macario EGFR-NON AF FAROESE >60 Normal >=60 [facility] Comment on above: Performed By: #### C MP, LIPA #### [facility] [address] [place] [address] Dr. Toy Macario Globulin (S) [Mass/Vol] 4.8 g/dL Normal [facility] Comment on above: Performed By: #### C MP, LIPA #### [facility] [address] [place] [address] Dr. Toy Macario Glucose [Mass/Vol] 107 mg/dL Critically high 74-106 [facility] Comment on above: Performed By: #### C MP, LIPA #### [facility] [address] [place] [address] Dr. Toy Macario Potassium [Moles/Vol] 3.2 mmol/L Critically low 3.4-5.0 [facility] Comment on above: Performed By: #### C MP, LIPA #### [facility] [address] [place] [address] Dr. Toy Macario Protein [Mass/Vol] 6.6 g/dL Normal 6.1-8.2 [facility] [place] Comment on above: Performed By: #### C MP, LIPA #### [facility] [address] [place] [address] Dr. Toy Macario Sodium [Moles/Vol] 139 mmol/L Normal 137-145 [facility] [place] Comment on above: Performed By: #### C MP, LIPA #### [facility] [address] [place] [address] Dr. Toy Macario Urea nitrogen [Mass/Vol] 6.0 mg/dL Critically low 7.0-17.0 [facility] Comment on above: Performed By: #### C MP, LIPA #### [facility] [address] [place] [address] Dr. Toy Macario Urea nitrogen/Creatinine [Mass ratio] 9.8 mg/mg Normal [facility] Comment on above: Performed By: #### C MP, LIPA #### [facility] [address] [place] [address] Dr. Toy Macario CBC AUTO DIFFon 04-18-2021 BASO # 0.0 103/ul Normal 0.0-0.1 [facility] Comment on above: Performed By: #### L IPA, CMP #### [facility] [address] [place] [address] Dr. Toy Macario Basophils/100 WBC (Bld) 0.6 % Normal 0.2-2.0 [facility] Comment on above: Performed By: #### L IPA, CMP #### [facility] [address] [place] [address] Dr. Toy Macario EO # 0.1 103/ul Normal 0.0-0.7 [facility] Comment on above: Performed By: #### L IPA, CMP #### [facility] [address] [place] [address] Dr. Toy Macario Eosinophils/100 WBC (Bld) 1.8 % Normal 0.9-7.0 [facility] Comment on above: Performed By: #### L IPA, CMP #### [facility] [address] [place] [address] Dr. Toy Macario Erythrocyte distribution width (RBC) [Ratio] 14.0 % Normal 11.0-15.0 [facility] Comment on above: Performed By: #### L IPA, CMP #### [facility] [address] [place] [address] Dr. Toy Macario Hematocrit (Bld) [Volume fraction] 27.9 % Critically low 36.0-48.0 [facility] Comment on above: Performed By: #### L IPA, CMP #### [facility] [address] [place] [address] Dr. Toy Macario Hemoglobin (Bld) [Mass/Vol] 8.5 g/dL Critically low 12.0-16.0 [facility] Comment on above: Performed By: #### L IPA, CMP #### [facility] [address] [place] [address] Dr. Toy Macario IG # 0.03 10e3/ul Normal 0.00-0.03 [facility] Comment on above: Performed By: #### L IPA, CMP #### [facility] [address] [place] [address] Dr. Toy Macario IG % 0.4 % Normal 0.0-0.5 [facility] Comment on above: Performed By: #### L IPA, CMP #### [facility] [address] [place] [address] Dr. Toy Macario LYMPH # 1.0 103/ul Critically low 1.2-3.8 [facility] Comment on above: Performed By: #### L IPA, CMP #### [facility] [address] [place] [address] Dr. Toy Macario Lymphocytes/100 WBC (Bld) 14.3 % Critically low 20.5-60.0 [facility] Comment on above: Performed By: #### L IPA, CMP #### [facility] [address] [place] [address] Dr. Toy Macario MANUAL DIFF REQ NO Normal [facility] Comment on above: Performed By: #### L IPA, CMP #### [facility] [address] [place] [address] Dr. Toy Macario MCH (RBC) [Entitic mass] 27.5 pg Normal 26.7-34.0 [facility] Comment on above: Performed By: #### L IPA, CMP #### [facility] [address] [place] [address] Dr. Toy Macario MCHC (RBC) [Mass/Vol] 30.5 g/dL Normal 29.9-35.2 [facility] Comment on above: Performed By: #### L IPA, CMP #### [facility] [address] [place] [address] Dr. Toy Macario MCV (RBC) [Entitic vol] 90.3 fL Normal 81.0-99.0 [facility] Comment on above: Performed By: #### L IPA, CMP #### [facility] [address] [place] [address] Dr. Toy Macario MONO # 0.5 103/ul Normal 0.3-0.8 [facility] Comment on above: Performed By: #### L IPA, CMP #### [facility] [address] [place] [address] Dr. Toy Macario Monocytes/100 WBC (Bld) 6.8 % Normal 1.7-12.0 [facility] Comment on above: Performed By: #### L IPA, CMP #### [facility] [address] [place] [address] Dr. Toy Macario NEUT # 5.4 103/ul Normal 1.4-6.5 [facility] Comment on above: Performed By: #### L IPA, CMP #### [facility] [address] [place] [address] Dr. Toy Macario Neutrophils/100 WBC (Bld) 76.1 % Critically high 43.0-75.0 [facility] Comment on above: Performed By: #### L IPA, CMP #### [facility] [address], [place] [address] Dr. Toy Macario Platelet mean volume (Bld) [Entitic vol] 9.6 fL Normal 9.5-13.5 [facility] Comment on above: Performed By: #### L IPA, CMP #### [facility] [address], [place] [address] Dr. Toy Macario PLT 253 103/ul Normal 150-450 [facility] Comment on above: Performed By: #### L IPA, CMP #### [facility] [address], [place] [address] Dr. Toy Macario RBC 3.09 106/ul Critically low 4.20-5.40 [facility] Comment on above: Performed By: #### L IPA, CMP #### [facility] [address], [place] [address] Dr. Toy Macario WBC 7.1 103/ul Normal 4.0-11.0 [facility] Comment on above: Performed By: #### L IPA, CMP #### [facility] [address], [place] [address] ABD/PELV W CONon 04-18-19 CT ABD/PELV W CON EXAMINATION: CT ABD/PELV W CON, 04/18/2021 9:28 AM EST HISTORY: Acute pancreatitis , biliary leak, right lower quadrant pain. COMPARISON: 04/15/2021 TECHNIQUE: CT scan of the abdomen and pelvis was performed with IV contrast. CT dose reduction technique was used, including Automated Exposure Control. FINDINGS: LUNG BASES: Linear opacity in the right lung base, atelectasis favored at 5 mm right pleural effusion LIVER: No enlargement, atrophy, abnormal density, or significant focal lesion. BILIARY: Clips from cholecystectomy. Biliary stent extending from the proximal common bile duct to the duodenum. Mild pneumobilia. Again identified is a 9.6 x 6.9 cm fluid collection in the gallbladder fossa measuring 4 Hounsfield units with some peripheral subtle hyperdensity. Some wall thickening of this lesion appears minimally decreased. A second fluid collection along the inferior margin of the left hepatic lobe with surrounding mesenteric stranding, grossly stable PANCREAS: No lesion, fluid collection, ductal dilatation, or atrophy. SPLEEN: No enlargement or focal lesion. ADRENALS: Normal right. Enlarged left with calcification KIDNEYS: No mass, obstruction, or calcification. BOWEL/MESENTERY: Mild colonic diverticulosis. Lipomatous hypertrophy of the ileocecal valve. New fluid is identified just above and at the jennie hepatis axial image 31 measuring 5.2 x 2.9 cm with a density of 23 Hounsfield units. No fluid is identified within the right paracolic gutter and the pelvis with a density of 9-20 Hounsfield units. AORTA/VASCULAR: No aneurysm or dissection. RETROPERITONEUM: No mass or adenopathy. LYMPH NODES: No adenopathy. URINARY BLADDER: No visible focal wall thickening, lesion, or calculus. PELVIC ORGANS: Right adnexal hypodensity ABDOMINAL WALL: No mass or hernia. BONES: No bony lesion or fracture. OTHER: Negative. IMPRESSION: New mall amount of free fluid identified at the jennie hepatis, right paracolic gutter and pelvis. A biliary leak should be considered Relatively stable appearance of 2 circumscribed fluid collections with surrounding inflammatory changes centered at the gallbladder fossa and subjacent to the left hepatic lobe Electronically authenticated by: URIEL GUILLEN Date: 2021-04-18 12:55 Normal [facility] LIPASEon 04-18-2021 Lipase [Catalytic activity/Vol] 330.0 U/L Critically high 23.0-300.0 [facility] Comment on above: Performed By: #### C MP, LIPA #### [facility] [address] [place] [address] [address] Toy Macario OCC BLD IMMUNOASSAYon 2021 OCCULT BLOOD Negative Normal NEGATIVE [facility] Comment on above: Performed By: #### O DEVENDRA #### [facility] [address], [place] [address] Dr. Toy Macario POINT OF CARE GLUCOSEon 04-06 Glucose [Mass/Vol] 110 mg/dL Critically high 74-106 [facility] Comment on above: Performed By: #### C BC #### [facility] [address], [place] [address] Dr. Toy Macario Glucose [Mass/Vol] 103 mg/dL Normal 74-106 [facility] [place] Comment on above: Performed By: #### C MP, LIPA #### [facility] [address] [place] [address] [address] Toy Macario Glucose [Mass/Vol] 112 mg/dL Critically high 74-106 [facility] Comment on above: Performed By: #### L IPA, CMP #### [facility] [address] [address] [address] Toy Macario PROF 14(COMP METB)on 022 Albumin [Mass/Vol] 1.7 g/dL Critically low 3.5-5.0 [facility] Comment on above: Performed By: #### C MP, LIPA #### [facility] [address] [place] [address] Dr. Toy Macario Albumin/Globulin [Mass ratio] 0.4 {ratio} Normal [facility] Comment on above: Performed By: #### C MP, LIPA #### [facility] [address] [place] [address] Dr. Toy Macario ALP [Catalytic activity/Vol] 65 U/L Normal 38-126 [facility] Comment on above: Performed By: #### C MP, LIPA #### [facility] [address] [place] [address] Dr. Toy Macario ALT [Catalytic activity/Vol] 15 U/L Normal 9-52 [facility] Comment on above: Performed By: #### C MP, LIPA #### [facility] [address] [place] [address] [address] Toy Macario Anion gap [Moles/Vol] 11.4 mmol/L Normal [facility] Comment on above: Performed By: #### C MP, LIPA #### [facility] [address] [place] [address] Dr. Toy Macario AST [Catalytic activity/Vol] 11 U/L Critically low 14-36 [facility] Comment on above: Performed By: #### C MP, LIPA #### [facility] [address] [place] [address] Dr. Toy Macario Bilirubin [Mass/Vol] 0.3 mg/dL Normal 0.2-1.3 [facility] Comment on above: Performed By: #### C MP, LIPA #### [facility] [address] [place] [address] Dr. Toy Macario Calcium [Mass/Vol] 8.7 mg/dL Normal 8.4-10.2 [facility] [place] Comment on above: Performed By: #### C MP, LIPA #### [facility] [address] [place] [address] Dr. Toy Macario Chloride [Moles/Vol] 106 mmol/L Normal 98-107 [facility] Comment on above: Performed By: #### C MP, LIPA #### [facility] [address] [place] [address] Dr. Toy Macario CO2 [Moles/Vol] 27.1 mmol/L Normal 22.0-30.0 [facility] Comment on above: Performed By: #### C MP, LIPA #### [facility] [address] [place] [address] Dr. Toy Macario Creatinine [Mass/Vol] 0.60 mg/dL Normal 0.52-1.04 [facility] Comment on above: Performed By: #### C MP, LIPA #### [facility] [address] [place] [address] Dr. Toy Macario EGFR-AF FAROESE >60 Normal >=60 [facility] Comment on above: Performed By: #### C MP, LIPA #### [facility] [address] [place] [address] Dr. Toy Macario EGFR-NON AF FAROESE >60 Normal >=60 [facility] Comment on above: Performed By: #### C MP, LIPA #### [facility] [address] [place] [address] Dr. Toy Macario Globulin (S) [Mass/Vol] 4.6 g/dL Normal [facility] Comment on above: Performed By: #### C MP, LIPA #### [facility] [address] [place] [address] Dr. Toy Macario Glucose [Mass/Vol] 110 mg/dL Critically high 74-106 [facility] Comment on above: Performed By: #### C MP, LIPA #### [facility] [address] [place] [address] Dr. Toy Macario Potassium [Moles/Vol] 3.5 mmol/L Normal 3.4-5.0 [facility] Comment on above: Performed By: #### C MP, LIPA #### [facility] [address] [place] [address] Dr. Toy Macario Protein [Mass/Vol] 6.3 g/dL Normal 6.1-8.2 [facility] [place] Comment on above: Performed By: #### C MP, LIPA #### [facility] [address] [place] [address] Dr. Toy Macario Sodium [Moles/Vol] 141 mmol/L Normal 137-145 [facility] [place] Comment on above: Performed By: #### C MP, LIPA #### [facility] [address] [place] [address] Dr. Toy Macario Urea nitrogen [Mass/Vol] 10.0 mg/dL Normal 7.0-17.0 [facility] Comment on above: Performed By: #### C LESLIE, LIPA #### [facility] [address] [place] [address] Dr. Toy Macario Urea nitrogen/Creatinine [Mass ratio] 16.7 mg/mg Normal [facility] Comment on above: Performed By: #### C MP, LIPA #### [facility] [address] [place] [address] Dr. Toy Macario CBC AUTO DIFFon 04-17-2021 BASO # 0.1 103/ul Normal 0.0-0.1 [facility] Comment on above: Performed By: #### C MP, LIPA #### [facility] [address] [place] [address] Dr. Toy Macario Basophils/100 WBC (Bld) 0.6 % Normal 0.2-2.0 [facility] Comment on above: Performed By: #### C MP, LIPA #### [facility] [address] [address] [address] Toy Macario EO # 0.1 103/ul Normal 0.0-0.7 [facility] Comment on above: Performed By: #### C MP, LIPA #### [facility] [address] [address] [address] Toy Macario Eosinophils/100 WBC (Bld) 1.6 % Normal 0.9-7.0 [facility] Comment on above: Performed By: #### C MP, LIPA #### [facility] [address] [address] [address] Toy Macario Erythrocyte distribution width (RBC) [Ratio] 14.4 % Normal 11.0-15.0 [facility] Comment on above: Performed By: #### C MP, LIPA #### [facility] [address] [place] [address] Dr. Toy Macario Hematocrit (Bld) [Volume fraction] 28.5 % Critically low 36.0-48.0 [facility] Comment on above: Performed By: #### C LESLIE, LIPA #### [facility] [address] [address] [address] Toy Macario Hemoglobin (Bld) [Mass/Vol] 8.7 g/dL Critically low 12.0-16.0 [facility] Comment on above: Performed By: #### C MP, LIPA #### [facility] [address] [address] [address] Toy Macario IG # 0.06 10e3/ul Critically high 0.00-0.03 [facility] Comment on above: Performed By: #### C MP, LIPA #### [facility] [address] [place] [address] [address] Toy Macario IG % 0.7 % Critically high 0.0-0.5 [facility] Comment on above: Performed By: #### C MP, LIPA #### [facility] [address] [address] [address] Toy Macario LYMPH # 1.1 103/ul Critically low 1.2-3.8 [facility] Comment on above: Performed By: #### C MP, LIPA #### [facility] [address] [place] [address] Dr. Toy Macario Lymphocytes/100 WBC (Bld) 12.2 % Critically low 20.5-60.0 [facility] Comment on above: Performed By: #### C MP, LIPA #### [facility] [address] [place] [address] Dr. Toy Macario MANUAL DIFF REQ NO Normal [facility] Comment on above: Performed By: #### C MP, LIPA #### [facility] [address] [place] [address] Dr. Toy Macario MCH (RBC) [Entitic mass] 27.6 pg Normal 26.7-34.0 [facility] Comment on above: Performed By: #### C MP, LIPA #### [facility] [address] [place] [address] Dr. Toy Macario MCHC (RBC) [Mass/Vol] 30.5 g/dL Normal 29.9-35.2 [facility] Comment on above: Performed By: #### C MP, LIPA #### [facility] [address] [place] [address] Dr. Toy Macario MCV (RBC) [Entitic vol] 90.5 fL Normal 81.0-99.0 [facility] Comment on above: Performed By: #### C MP, LIPA #### [facility] [address] [place] [address] Dr. Toy Macario MONO # 0.6 103/ul Normal 0.3-0.8 [facility] Comment on above: Performed By: #### C MP, LIPA #### [facility] [address] [place] [address] Dr. Toy Macario Monocytes/100 WBC (Bld) 7.2 % Normal 1.7-12.0 [facility] Comment on above: Performed By: #### C MP, LIPA #### [facility] [address] [place] [address] Dr. Toy Macario NEUT # 6.7 103/ul Critically high 1.4-6.5 [facility] Comment on above: Performed By: #### C LESLIE, LIPA #### [facility] [address] [place] [address] Dr. Toy Macario Neutrophils/100 WBC (Bld) 77.7 % Critically high 43.0-75.0 [facility] Comment on above: Performed By: #### C LESLIE, LIPA #### [facility] [address] [place] [address] Dr. Toy Macario Platelet mean volume (Bld) [Entitic vol] 9.4 fL Critically low 9.5-13.5 [facility] Comment on above: Performed By: #### C LESLIE, LIPA #### [facility] [address] [place] [address] Dr. Toy Macario PLT 272 103/ul Normal 150-450 [facility] Comment on above: Performed By: #### C LESLIE, LIPA #### [facility] [address] [place] [address] Dr. Toy Macario RBC 3.15 106/ul Critically low 4.20-5.40 [facility] Comment on above: Performed By: #### C LESLIE, LIPA #### [facility] [address] [place] [address] Dr. Toy Macario WBC 8.6 103/ul Normal 4.0-11.0 [facility] Comment on above: Performed By: #### C LESLIE, LIPA #### [facility] [address] [place] [address] Dr. Toy Macario CULTURE URINEon 04-17-2021 CULTURE URINE Isolate 1 Escherichia coli >100,000 cfu/mL of ORGANISM 1 Escherichia coli ANTIBIOTIC M.I.C RX STATUS Ampicillin >=32 R F Ampicillin/Sulbactam 4 S F Piperacillin/Tazobacta m <=4 S F Cefazolin <=4 S F Ceftazidime <=1 S F Ceftriaxone <=1 S F Ertapenem <=0.5 S F Imipenem <=0.25 S F Amikacin <=2 S F Gentamicin <=1 S F Tobramycin <=1 S F Ciprofloxacin <=0.25 S F Levofloxacin <=0.12 S F Nitrofurantoin <=16 S F Trimethoprim/Sulfameth oxazole >=320 R F Normal [facility] Comment on above: Performed By: #### C VDTBH #### [facility] [address] [place] [address] Dr. Toy Macario LIPASEon 04-17-2021 Lipase [Catalytic activity/Vol] 374.0 U/L Critically high 23.0-300.0 [facility] Comment on above: Performed By: #### L IPA, CMP #### [facility] [address] [place] [address] Dr. Toy Macario POINT OF CARE GLUCOSEon 04-06 Glucose [Mass/Vol] 108 mg/dL Critically high 74-106 [facility] Comment on above: Performed By: #### L IPA, CMP #### [facility] [address] [place] [address] Dr. Toy Macario Glucose [Mass/Vol] 105 mg/dL Normal 74-106 [facility] Comment on above: Performed By: #### C MP, LIPA #### [facility] [address] [place] [address] Dr. Toy Macario Glucose [Mass/Vol] 99 mg/dL Normal 74-106 [facility] Comment on above: Performed By: #### C BC #### [facility] [address] [place] [address] Dr. Toy Macario Glucose [Mass/Vol] 96 mg/dL Normal 74-106 [facility] Comment on above: Performed By: #### L IPA, CMP #### [facility] [address] [place] [address] Dr. Toy Macario PROF 14(COMP METB)on 022 Albumin [Mass/Vol] 1.9 g/dL Critically low 3.5-5.0 [facility] Comment on above: Performed By: #### L IPA, CMP #### [facility] [address] [place] [address] Dr. Toy Macario Albumin/Globulin [Mass ratio] 0.4 {ratio} Normal [facility] Comment on above: Performed By: #### L IPA, CMP #### [facility] [address] [place] [address] Dr. Toy Macario ALP [Catalytic activity/Vol] 68 U/L Normal 38-126 [facility] Comment on above: Performed By: #### L IPA, CMP #### [facility] [address] [place] [address] Dr. Toy Macario ALT [Catalytic activity/Vol] 21 U/L Normal 9-52 [facility] Comment on above: Performed By: #### L IPA, CMP #### [facility] [address] [place] [address] Dr. Toy Macario Anion gap [Moles/Vol] 14.2 mmol/L Normal [facility] Comment on above: Performed By: #### L IPA, CMP #### [facility] [address] [place] [address] Dr. Toy Macario AST [Catalytic activity/Vol] 13 U/L Critically low 14-36 [facility] Comment on above: Performed By: #### L IPA, CMP #### [facility] [address] [place] [address] Dr. Toy Macario Bilirubin [Mass/Vol] 0.5 mg/dL Normal 0.2-1.3 [facility] Comment on above: Performed By: #### L IPA, CMP #### [facility] [address] [place] [address] Dr. Toy Macario Calcium [Mass/Vol] 8.6 mg/dL Normal 8.4-10.2 [facility] Comment on above: Performed By: #### L IPA, CMP #### [facility] [address] [place] [address] Dr. Toy Macario Chloride [Moles/Vol] 106 mmol/L Normal 98-107 [facility] Comment on above: Performed By: #### L IPA, CMP #### [facility] [address] [place] [address] Dr. Toy Macario CO2 [Moles/Vol] 26.3 mmol/L Normal 22.0-30.0 [facility] Comment on above: Performed By: #### L IPA, CMP #### [facility] [address] [address] [address] Toy Macario Creatinine [Mass/Vol] 0.78 mg/dL Normal 0.52-1.04 [facility] Comment on above: Performed By: #### L IPA, CMP #### [facility] [address] [address] [address] Toy Macario EGFR-AF FAROESE >60 Normal >=60 [facility] Comment on above: Performed By: #### L IPA, CMP #### [facility] [address] [place] [address] Dr. Toy Macario EGFR-NON AF FAROESE >60 Normal >=60 [facility] Comment on above: Performed By: #### L IPA, CMP #### [facility] [address] [place] [address] Dr. Toy Macario Globulin (S) [Mass/Vol] 4.5 g/dL Normal [facility] Comment on above: Performed By: #### L IPA, CMP #### [facility] [address] [address] [address] Toy Macario Glucose [Mass/Vol] 89 mg/dL Normal 74-106 [facility] Comment on above: Performed By: #### L IPA, CMP #### [facility] [address] [place] [address] Dr. Toy Macario Potassium [Moles/Vol] 3.4 mmol/L Normal 3.4-5.0 [facility] Comment on above: Performed By: #### L IPA, CMP #### [facility] [address] [place] [address] Dr. Toy Macario Protein [Mass/Vol] 6.4 g/dL Normal 6.1-8.2 [facility] Comment on above: Performed By: #### L IPA, CMP #### [facility] [address] [address] [address] Toy Macario Sodium [Moles/Vol] 143 mmol/L Normal 137-145 [facility] Comment on above: Performed By: #### L IPA, CMP #### [facility] [address] [place] [address] Dr. Toy Macario Urea nitrogen [Mass/Vol] 9.0 mg/dL Normal 7.0-17.0 [facility] Comment on above: Performed By: #### L IPA, CMP #### [facility] [address] [place] [address] Dr. Toy Macario Urea nitrogen/Creatinine [Mass ratio] 11.5 mg/mg Normal [facility] Comment on above: Performed By: #### L IPA, CMP #### [facility] [address] [place] [address] Dr. Toy Macario CBC AUTO DIFFon 04-16-2021 BASO # 0.1 103/ul Normal 0.0-0.1 [facility] Comment on above: Performed By: #### C MP, LIPA #### [facility] [address] [place] [address] Dr. Toy Macario Basophils/100 WBC (Bld) 0.4 % Normal 0.2-2.0 [facility] Comment on above: Performed By: #### C MP, LIPA #### [facility] [address] [place] [address] Dr. Toy Macario EO # 0.0 103/ul Normal 0.0-0.7 [facility] Comment on above: Performed By: #### C MP, LIPA #### [facility] [address] [place] [address] Dr. Toy Macario Eosinophils/100 WBC (Bld) 0.3 % Critically low 0.9-7.0 [facility] Comment on above: Performed By: #### C MP, LIPA #### [facility] [address] [place] [address] Dr. Toy Macario Erythrocyte distribution width (RBC) [Ratio] 14.1 % Normal 11.0-15.0 [facility] Comment on above: Performed By: #### C MP, LIPA #### [facility] [address] [place], [place] [id number] Dr. Toy Macario Hematocrit (Bld) [Volume fraction] 31.9 % Critically low 36.0-48.0 [facility] Comment on above: Performed By: #### C MP, LIPA #### [facility] [address] [place] [address] Dr. Toy Macario Hemoglobin (Bld) [Mass/Vol] 9.9 g/dL Critically low 12.0-16.0 [facility] Comment on above: Performed By: #### C MP, LIPA #### [facility] [address] [place] [address] Dr. Toy Macario IG # 0.08 10e3/ul Critically high 0.00-0.03 [facility] Comment on above: Performed By: #### C MP, LIPA #### [facility] [address] [place] [address] Dr. Toy Macario IG % 0.7 % Critically high 0.0-0.5 [facility] Comment on above: Performed By: #### C MP, LIPA #### [facility] [address] [place] [address] Dr. Toy Macario LYMPH # 0.9 103/ul Critically low 1.2-3.8 [facility] Comment on above: Performed By: #### C MP, LIPA #### [facility] [address] [place] [address] Dr. Toy Macario Lymphocytes/100 WBC (Bld) 7.8 % Critically low 20.5-60.0 [facility] Comment on above: Performed By: #### C MP, LIPA #### [facility] [address] [place] [address] Dr. Toy Macario MANUAL DIFF REQ NO Normal [facility] Comment on above: Performed By: #### C MP, LIPA #### [facility] [address] [place] [address] Dr. Toy Macario MCH (RBC) [Entitic mass] 27.5 pg Normal 26.7-34.0 [facility] Comment on above: Performed By: #### C MP, LIPA #### [facility] [address] [place] [address] Dr. Toy Macario MCHC (RBC) [Mass/Vol] 31.0 g/dL Normal 29.9-35.2 [facility] Comment on above: Performed By: #### C MP, LIPA #### [facility] [address] [place] [address] Dr. Toy Macario MCV (RBC) [Entitic vol] 88.6 fL Normal 81.0-99.0 [facility] Comment on above: Performed By: #### C MP, LIPA #### [facility] [address] [place] [address] Dr. Toy Macario MONO # 0.6 103/ul Normal 0.3-0.8 [facility] Comment on above: Performed By: #### C MP, LIPA #### [facility] [address] [place] [address] Dr. Toy Macario Monocytes/100 WBC (Bld) 5.3 % Normal 1.7-12.0 [facility] Comment on above: Performed By: #### C MP, LIPA #### [facility] [address] [place] [address] Dr. Toy Macario NEUT # 10.0 103/ul Critically high 1.4-6.5 [facility] Comment on above: Performed By: #### C MP, LIPA #### [facility] [address] [place] [address] Dr. Toy Macario Neutrophils/100 WBC (Bld) 85.5 % Critically high 43.0-75.0 [facility] Comment on above: Performed By: #### C MP, LIPA #### [facility] [address] [place] [address] Dr. Toy Macario Platelet mean volume (Bld) [Entitic vol] 9.3 fL Critically low 9.5-13.5 [facility] Comment on above: Performed By: #### C MP, LIPA #### [facility] [address] [place] [address] Dr. Toy Macario PLT 321 103/ul Normal 150-450 [facility] Comment on above: Performed By: #### C MP, LIPA #### [facility] [address] [address] [address] Toy Macario RBC 3.60 106/ul Critically low 4.20-5.40 [facility] Comment on above: Performed By: #### C MP, LIPA #### [facility] [address] [place] [address] Dr. Toy Macario WBC 11.7 103/ul Critically high 4.0-11.0 [facility] Comment on above: Performed By: #### C MP, LIPA #### [facility] [address] [place] [address] Dr. Toy Macario LIPASEon 04-16-2021 Lipase [Catalytic activity/Vol] 667.0 U/L Critically high 23.0-300.0 [facility] Comment on above: Performed By: #### O DEVENDRA #### [facility] [address] [place] [address] Dr. Toy Macario POINT OF CARE GLUCOSEon 04-06 Glucose [Mass/Vol] 89 mg/dL Normal 74-106 [facility] Comment on above: Performed By: #### O DEVENDRA #### [facility] [address] [place] [address] Dr. Toy Macario Glucose [Mass/Vol] 92 mg/dL Normal 74-106 [facility] Comment on above: Performed By: #### L IPA, CMP #### [facility] [address] [place] [address] Dr. Toy Macario Glucose [Mass/Vol] 100 mg/dL Normal 74-106 [facility] Comment on above: Performed By: #### C VDTBH #### [facility] [address] [place] [address] Dr. Toy Macario PROF 14(COMP METB)on 022 Albumin [Mass/Vol] 1.9 g/dL Critically low 3.5-5.0 [facility] Comment on above: Performed By: #### O DEVENDRA #### [facility] [address] [place] [address] Dr. Toy Macario Albumin/Globulin [Mass ratio] 0.4 {ratio} Normal [facility] Comment on above: Performed By: #### O DEVENDRA #### [facility] [address] [place] [address] Dr. Toy Macario ALP [Catalytic activity/Vol] 69 U/L Normal 38-126 [facility] Comment on above: Performed By: #### O DEVENDRA #### [facility] [address] [place] [address] Dr. Toy Macario ALT [Catalytic activity/Vol] 27 U/L Normal 9-52 [facility] Comment on above: Performed By: #### O DEVENDRA #### [facility] [address] [place] [address] Dr. Toy Macario Anion gap [Moles/Vol] 13.5 mmol/L Normal [facility] Comment on above: Performed By: #### O DEVENDRA #### [facility] [address] [place] [address] Dr. Toy Macario AST [Catalytic activity/Vol] 20 U/L Normal 14-36 [facility] Comment on above: Performed By: #### O DEVENDRA #### [facility] [address] [place] [address] Dr. Toy Macario Bilirubin [Mass/Vol] 0.6 mg/dL Normal 0.2-1.3 [facility] Comment on above: Performed By: #### O DEVENDRA #### [facility] [address] [place] [address] Dr. Toy Macario Calcium [Mass/Vol] 8.7 mg/dL Normal 8.4-10.2 [facility] Comment on above: Performed By: #### O DEVENDRA #### [facility] [address] [place] [address] Dr. Toy Macario Chloride [Moles/Vol] 106 mmol/L Normal 98-107 [facility] Comment on above: Performed By: #### O DEVENDRA #### [facility] [address] [place] [address] Dr. Toy Macario CO2 [Moles/Vol] 24.7 mmol/L Normal 22.0-30.0 [facility] Comment on above: Performed By: #### O DEVENDRA #### [facility] [address] [place] [address] Dr. Toy Macario Creatinine [Mass/Vol] 0.92 mg/dL Normal 0.52-1.04 [facility] Comment on above: Performed By: #### O DEVENDRA #### [facility] [address] [place] [address] Dr. Toy Macario EGFR-AF FAROESE >60 Normal >=60 [facility] Comment on above: Performed By: #### O DEVENDRA #### [facility] [address] [place] [address] Dr. Toy Macario EGFR-NON AF FAROESE >60 Normal >=60 [facility] Comment on above: Performed By: #### O DEVENDRA #### [facility] [address] [place] [address] Dr. Toy Macario Globulin (S) [Mass/Vol] 4.7 g/dL Normal [facility] Comment on above: Performed By: #### O DEVENDRA #### [facility] [address] [place] [address] Dr. Toy Macario Glucose [Mass/Vol] 126 mg/dL Critically high 74-106 [facility] Comment on above: Performed By: #### O DEVENDRA #### [facility] [address] [place] [address] Dr. Toy Macario Potassium [Moles/Vol] 3.2 mmol/L Critically low 3.4-5.0 [facility] Comment on above: Performed By: #### O DEVENDRA #### [facility] [address] [place] [address] Dr. Toy Macario Protein [Mass/Vol] 6.6 g/dL Normal 6.1-8.2 [facility] Comment on above: Performed By: #### O DEVENDRA #### [facility] [address] [place] [address] Dr. Toy Macario Sodium [Moles/Vol] 141 mmol/L Normal 137-145 [facility] Comment on above: Performed By: #### O DEVENDRA #### [facility] [address] [place] [address] Dr. Toy Macario Urea nitrogen [Mass/Vol] 8.0 mg/dL Normal 7.0-17.0 [facility] Comment on above: Performed By: #### O DEVENDRA #### [facility] [address] [place] [address] Dr. Toy Macario Urea nitrogen/Creatinine [Mass ratio] 8.7 mg/mg Normal [facility] Comment on above: Performed By: #### O DEVENDRA #### [facility] [address] [place] [address] Dr. Toy Macario AMYLASEon 04-15-2021 Amylase [Catalytic activity/Vol] 97 U/L Normal 31-110 [facility] Comment on above: Performed By: #### C MP, LIPA #### [facility] [address] [place] [address] Dr. Toy Macario CBC AUTO DIFFon 04-15-2021 BASO # 0.1 103/ul Normal 0.0-0.1 [facility] Comment on above: Performed By: #### C BC #### [facility] [address] [place] [address] Dr. Toy Macario Basophils/100 WBC (Bld) 0.5 % Normal 0.2-2.0 [facility] Comment on above: Performed By: #### C BC #### [facility] [address] [place] [address] Dr. Toy Macario EO # 0.0 103/ul Normal 0.0-0.7 [facility] Comment on above: Performed By: #### C BC #### [facility] [address] [place] [address] Dr. Toy Macario Eosinophils/100 WBC (Bld) 0.3 % Critically low 0.9-7.0 [facility] Comment on above: Performed By: #### C BC #### [facility] [address] [place] [address] Dr. Toy Macario Erythrocyte distribution width (RBC) [Ratio] 13.9 % Normal 11.0-15.0 [facility] Comment on above: Performed By: #### C BC #### [facility] [address] [place] [address] Dr. Toy Macario Hematocrit (Bld) [Volume fraction] 34.2 % Critically low 36.0-48.0 [facility] Comment on above: Performed By: #### C BC #### [facility] [address] [place] [address] Dr. Toy Macario Hemoglobin (Bld) [Mass/Vol] 10.8 g/dL Critically low 12.0-16.0 [facility] Comment on above: Performed By: #### C BC #### [facility] [address] [place] [address] Dr. Toy Macario IG # 0.05 10e3/ul Critically high 0.00-0.03 [facility] Comment on above: Performed By: #### C BC #### [facility] [address] [place] [address] Dr. Toy Macario IG % 0.4 % Normal 0.0-0.5 [facility] Comment on above: Performed By: #### C BC #### [facility] [address] [place] [address] Dr. Toy Macario LYMPH # 0.9 103/ul Critically low 1.2-3.8 [facility] Comment on above: Performed By: #### C BC #### [facility] [address] [place] [address] Dr. Toy Macario Lymphocytes/100 WBC (Bld) 8.4 % Critically low 20.5-60.0 [facility] Comment on above: Performed By: #### C BC #### [facility] [address] [place] [address] Dr. Toy Macario MANUAL DIFF REQ NO Normal [facility] Comment on above: Performed By: #### C BC #### [facility] [address] [place] [address] Dr. Toy Macario MCH (RBC) [Entitic mass] 28.1 pg Normal 26.7-34.0 [facility] Comment on above: Performed By: #### C BC #### [facility] [address] [place] [address] Dr. Toy Macario MCHC (RBC) [Mass/Vol] 31.6 g/dL Normal 29.9-35.2 [facility] Comment on above: Performed By: #### C BC #### [facility] [address] [place] [address] Dr. Toy Macario MCV (RBC) [Entitic vol] 88.8 fL Normal 81.0-99.0 [facility] Comment on above: Performed By: #### C BC #### [facility] [address] [place] [address] Dr. Toy Macario MONO # 0.7 103/ul Normal 0.3-0.8 [facility] Comment on above: Performed By: #### C BC #### [facility] [address] [place] [address] Dr. Toy Macario Monocytes/100 WBC (Bld) 6.3 % Normal 1.7-12.0 [facility] Comment on above: Performed By: #### C BC #### [facility] [address] [place] [address] Dr. Toy Macario NEUT # 9.4 103/ul Critically high 1.4-6.5 [facility] Comment on above: Performed By: #### C BC #### [facility] [address] [place] [address] Dr. Toy Macario Neutrophils/100 WBC (Bld) 84.1 % Critically high 43.0-75.0 [facility] Comment on above: Performed By: #### C BC #### [facility] [address] [place] [address] Dr. Toy Macario Platelet mean volume (Bld) [Entitic vol] 9.1 fL Critically low 9.5-13.5 [facility] Comment on above: Performed By: #### C BC #### [facility] [address] [place] [address] Dr. Toy Macario PLT 361 103/ul Normal 150-450 [facility] Comment on above: Performed By: #### C BC #### [facility] [address], [place] [address] Dr. Toy Macario RBC 3.85 106/ul Critically low 4.20-5.40 [facility] Comment on above: Performed By: #### C BC #### [facility] [address], [place] [address] Dr. Toy Macario WBC 11.2 103/ul Critically high 4.0-11.0 [facility] Comment on above: Performed By: #### C BC #### [facility] [address], [place] [address] ABD/PELV W CONon 04-15-19 CT ABD/PELV W CON EXAMINATION: CT ABD/PELV W CON, 04/15/2021 10:48 AM EST HISTORY: UNSPECIFIED ABDOMINAL PAIN , cholecystectomy COMPARISON: 03/19/2021 TECHNIQUE: CT scan of the abdomen and pelvis was performed with IV contrast. CT dose reduction technique was used, including Automated Exposure Control. FINDINGS: LUNG BASES: No visible pulmonary or pleural disease. LIVER: Interval increase in size of a cystic fluid collection now measuring 9.5 x 7.1 cm on axial image #42 with increase in thickening of the wall with peripheral soft tissue measuring up to 1.1 cm on axial image 49. Some surrounding mesenteric stranding is now observed, these findings are new from the prior exam. There is intrahepatic biliary dilation with presence of a biliary stent extending from the proximal common bile duct into the third portion of the duodenum. The common bile duct is not dilated. A second new fluid collection is identified deep to the left hepatic lobe also well-circumscribed measuring 4.1 x 2.5 cm on axial image #41. Pneumobilia PANCREAS: No lesion, fluid collection, ductal dilatation, or atrophy. SPLEEN: No enlargement or focal lesion. ADRENALS: Calcification of the left adrenal gland. KIDNEYS: No mass, obstruction, or calcification. BOWEL/MESENTERY: Colonic diverticulosis. Lipomatous appearance of the colon wall, stable. Nonobstructive gas pattern. Normal appendix. AORTA/VASCULAR: No aortic aneurysm. Minimal atherosclerosis. RETROPERITONEUM: No mass or adenopathy. LYMPH NODES: No adenopathy. URINARY BLADDER: No visible focal wall thickening, lesion, or calculus. PELVIC ORGANS: 2.8 cm right adnexal hypodensity, a cyst is favored ABDOMINAL WALL: No mass or hernia. BONES: No bony lesion or fracture. OTHER: Negative. IMPRESSION: Interval change in a circumscribed fluid collection in the gallbladder fossa with increase in wall thickening and surrounding inflammatory changes. A second new adjacent fluid collection is now observed. In light of the patient's recent surgery and change from the prior exam. Consider biliary leak and/or infection. Electronically authenticated by: URIEL GUILLEN Date: 2021-04-15 11:33 Normal [facility] CULTURE BLOODon 04-15-2021 Microscopic examination of blood, culture Culture Observations: NO GROWTH AT 5 DAYS. Normal [facility] Comment on above: Performed By: #### C VDTBH #### [facility] [address] [place] [address] Dr. Toy Macario Covid-19 PCR ([facility])on 04-06 SARS-CoV-2 (COVID-19) RNA PITO+probe Ql (Unsp spec) Not detected Normal NOT DETECTED [facility] Comment on above: Result Comment: When diagnostic testing is negative, the possibility of a false negative should be considered in the context of a patient's recent exposures and the presence of clinical signs and symptoms consistent with SARS-CoV-2. This test is not yet approved or cleared by the [place] FDA. When there are no FDA-approved or cleared tests available, and other criteria are met, FDA can make tests available under an emergency access mechanism called an Emergency Use Authorization (EUA). The EUA for this test is supported by the Hospital Pharmacy Director of Health and Human Service's declaration that circumstances exist to justify the emergency use of in vitro diagnostics for the detection and/or diagnosis of the virus that causes COVID-19. This EUA will remain in effect for the duration of the COVID-19 declaration justifying emergency of IVDs, unless it is terminated or revoked by the FDA (after which the test may no longer be used). Performed By: #### C BC #### [facility] [address] [place] [address] Dr. Toy Macario ER URINE PROFILEon 2 Bilirubin Ql (U) Negative Normal NEGATIVE [facility] Comment on above: Performed By: #### C MP, LIPA #### [facility] [address] [place] [address] Dr. Toy Macario Clarity (U) CLOUDY Abnormal CLEAR [facility] Comment on above: Performed By: #### C MP, LIPA #### [facility] [address] [place] [address] Dr. Toy Macario Color (U) YELLOW Normal YELLOW [facility] Comment on above: Performed By: #### C MP, LIPA #### [facility] [address] [place] [address] Dr. Toy [place] A micrscopic examination will be performed if indicated. Normal [facility] Comment on above: Performed By: #### C MP, LIPA #### [facility] [address] [place] [address] Dr. Toy Macario Glucose Ql (U) Negative Normal NEGATIVE [facility] Comment on above: Performed By: #### C MP, LIPA #### [facility] [address] [place] [address] Dr. Toy Macario Hemoglobin Ql (U) SMALL Abnormal NEGATIVE [facility] Comment on above: Performed By: #### C MP, LIPA #### [facility] [address] [place] [address] Dr. Toy Macario Ketones Ql (U) 15 mg/dl Abnormal NEGATIVE [facility] Comment on above: Performed By: #### C MP, LIPA #### [facility] [address] [place] [address] Dr. Toy Macario LEUKOCYTES TRACE Abnormal NEGATIVE [facility] Comment on above: Performed By: #### C MP, LIPA #### [facility] [address] [place] [address] Dr. Toy Macario Nitrite Ql (U) Negative Normal NEGATIVE [facility] Comment on above: Performed By: #### C MP, LIPA #### [facility] [address] [place] [address] Dr. Toy Macario pH (U) 6.0 [pH] Normal 5-9 [facility] Comment on above: Performed By: #### C LESLIE, LIPA #### [facility] [address] [place] [address] Dr. Toy Macario Protein (U) [Mass/Vol] 100 mg/dL Abnormal NEGAT CHRISTINA/ TRACE [facility] Comment on above: Performed By: #### C LESLIE, LIPA #### [facility] [address] [place] [address] Dr. Toy Macario SPEC GRAVITY 1.025 Normal 1.005-<=1.0 25 [facility] Comment on above: Performed By: #### C LESLIE, LIPA #### [facility] [address] [place] [address] Dr. Toy Macario UR MICRO IND INDICATED Normal [facility] Comment on above: Performed By: #### C LESLIE LIPA #### [facility] [address] [place] [address] Dr. Toy Macario Urobilinogen Qn (U) 1.0 {Lisha'U}/dL Normal 0.2 - 1. 0 [facility] Comment on above: Performed By: #### C LESLIE, LIPA #### [facility] [address] [place] [address] Dr. Toy Macario LIPASEon 04-15-2021 Lipase [Catalytic activity/Vol] 929.0 U/L Critically high 23.0-300.0 [facility] Comment on above: Performed By: #### C LESLIE, LIPA #### [facility] [address] [place] [address] Dr. Toy Macario LIVER PROFILEon 04-15-2021 Albumin [Mass/Vol] 2.3 g/dL Critically low 3.5-5.0 [facility] Comment on above: Performed By: #### C LESLIE, LIPA #### [facility] [address] [place] [address] Dr. Toy Macario Albumin/Globulin [Mass ratio] 0.5 {ratio} Normal [facility] Comment on above: Performed By: #### C LESLIE, LIPA #### [facility] [address] [place] [address] [address] Toy Macario ALP [Catalytic activity/Vol] 73 U/L Normal 38-126 [facility] Comment on above: Performed By: #### C MP, LIPA #### [facility] [address] [place] [address] [address] Toy Macario ALT [Catalytic activity/Vol] 29 U/L Normal 9-52 [facility] Comment on above: Performed By: #### C MP, LIPA #### [facility] [address] [address] [address] Toy Macario AST [Catalytic activity/Vol] 21 U/L Normal 14-36 [facility] Comment on above: Performed By: #### C MP, LIPA #### [facility] [address] [place] [address] Dr. Toy Macario BILI, CONJUGATED 0.1 mg/dL Normal 0.0-0.3 [facility] Comment on above: Performed By: #### C MP, LIPA #### [facility] [address] [address] [address] Toy Macario Bilirubin [Mass/Vol] 0.4 mg/dL Normal 0.2-1.3 [facility] Comment on above: Performed By: #### C MP, LIPA #### [facility] [address] [place] [address] Dr. Toy Macario Globulin (S) [Mass/Vol] 5.1 g/dL Normal [facility] Comment on above: Performed By: #### C MP, LIPA #### [facility] [address] [address] [address] Toy Macario Protein [Mass/Vol] 7.4 g/dL Normal 6.1-8.2 [facility] [place] Comment on above: Performed By: #### C MP, LIPA #### [facility] [address] [place] [address] Dr. Toy Macario URon 04-15-2021 , QUAL Negative Normal NEGATIVE [facility] Comment on above: Performed By: #### P REGU #### [facility] [address] [place] [address] Dr. Toy Macario PROF CHEM 8 (BAS METB)on Anion gap [Moles/Vol] 10.5 mmol/L Normal Th [facility] Comment on above: Performed By: #### C MP, LIPA #### [facility] [address] [place] [address] Dr. Toy Macario Calcium [Mass/Vol] 9.0 mg/dL Normal 8.4-10.2 [facility] [place] Comment on above: Performed By: #### C MP, LIPA #### [facility] [address] [place] [address] Dr. Toy Macario Chloride [Moles/Vol] 102 mmol/L Normal 98-107 [facility] Comment on above: Performed By: #### C MP, LIPA #### [facility] [address] [place] [address] Dr. Toy Macario CO2 [Moles/Vol] 27.5 mmol/L Normal 22.0-30.0 [facility] Comment on above: Performed By: #### C MP, LIPA #### [facility] [address] [place] [address] Dr. Toy Macario Creatinine [Mass/Vol] 0.68 mg/dL Normal 0.52-1.04 [facility] Comment on above: Performed By: #### C MP, LIPA #### [facility] [address] [place] [address] Dr. Toy Macario EGFR-AF FAROESE >60 Normal >=60 [facility] Comment on above: Performed By: #### C MP, LIPA #### [facility] [address] [place] [address] Dr. Toy Macario EGFR-NON AF FAROESE >60 Normal >=60 [facility] Comment on above: Performed By: #### C MP, LIPA #### [facility] [address] [place] [address] Dr. Toy Macario Glucose [Mass/Vol] 137 mg/dL Critically high 74-106 [facility] Comment on above: Performed By: #### C MP, LIPA #### [facility] [address] [place] [address] Dr. Toy Macario Potassium [Moles/Vol] 3.5 mmol/L Normal 3.4-5.0 [facility] Comment on above: Performed By: #### C MP, LIPA #### [facility] [address] [place] [address] Dr. Toy Macario Sodium [Moles/Vol] 139 mmol/L Normal 137-145 [facility] [place] Comment on above: Performed By: #### C MP, LIPA #### [facility] [address] [place] [address] Dr. Toy Macario Urea nitrogen [Mass/Vol] 7.0 mg/dL Normal 7.0-17.0 [facility] Comment on above: Performed By: #### C MP, LIPA #### [facility] [address] [place] [address] Dr. Toy Macario Urea nitrogen/Creatinine [Mass ratio] 10.3 mg/mg Normal [facility] Comment on above: Performed By: #### C MP, LIPA #### [facility] [address] [place] [address] Dr. Toy Macario URINE MICROSCOPIC ONLYon AMORPHOUS CRYSTALS MODERATE Normal [facility] Comment on above: Performed By: #### C MP, LIPA #### [facility] [address] [place] [address] Dr. Toy Macario BACTERIA SMALL Abnormal NONE SEEN [facility] Comment on above: Performed By: #### C MP, LIPA #### [facility] [address] [place] [address] Dr. Toy Macario Bacteria identified Cx Nom (U) INDICATED Normal [facility] Comment on above: Performed By: #### C MP, LIPA #### [facility] [address] [place] [address] Dr. Toy Macario CAST NONE SEEN Normal NONE SEEN [facility] Comment on above: Performed By: #### C MP, LIPA #### [facility] [address] [place] [address] Dr. Toy Macario Crystals LM Nom (Urine sed) SEEN Abnormal NONE SEEN [facility] Comment on above: Performed By: #### C MP, LIPA #### [facility] [address] [place] [address] Dr. Toy Macario Epithelial cells LM Ql (Urine sed) FEW Abnormal NONE SEEN /RARE [facility] Comment on above: Performed By: #### C MP, LIPA #### [facility] [address] [place] [address] Dr. Toy Macario MUCOUS SMALL Abnormal NONE SEEN [facility] Comment on above: Performed By: #### C MP, LIPA #### [facility] [address] [place] [address] Dr. Toy Macario RBC 2-5 Abnormal 0-2 [facility] Comment on above: Performed By: #### C MP, LIPA #### [facility] [address] [place] [address] Dr. Toy Macario WBC 5-10 Abnormal NONE SEEN [facility] Comment on above: Performed By: #### C MP, LIPA #### [facility] [address] [place] [address] Dr. Toy Macario CBC AUTO DIFFon 03-19-2021 BASO # 0.1 103/ul Normal 0.0-0.1 [facility] Comment on above: Performed By: #### O DEVENDRA #### [facility] [address] [place] [address] Dr. Toy Macario Basophils/100 WBC (Bld) 0.6 % Normal 0.2-2.0 [facility] Comment on above: Performed By: #### O DEVENDRA #### [facility] [address] [place] [address] Dr. Toy Macario EO # 0.1 103/ul Normal 0.0-0.7 [facility] Comment on above: Performed By: #### O DEVENDRA #### [facility] [address] [place] [address] Dr. Toy Macario Eosinophils/100 WBC (Bld) 0.5 % Critically low 0.9-7.0 [facility] Comment on above: Performed By: #### O DEVENDRA #### [facility] [address] [place] [address] Dr. Toy Macario Erythrocyte distribution width (RBC) [Ratio] 14.7 % Normal 11.0-15.0 [facility] Comment on above: Performed By: #### O DEVENDRA #### [facility] [address] [place] [address] Dr. Toy Macario Hematocrit (Bld) [Volume fraction] 40.8 % Normal 36.0-48.0 [facility] Comment on above: Performed By: #### O DEVENDRA #### [facility] [address] [place] [address] Dr. Toy Macario Hemoglobin (Bld) [Mass/Vol] 12.8 g/dL Normal 12.0-16.0 [facility] Comment on above: Performed By: #### O DEVENDRA #### [facility] [address] [place] [address] Dr. Toy Macario IG # 0.04 10e3/ul Critically high 0.00-0.03 [facility] Comment on above: Performed By: #### O DEVENDRA #### [facility] [address] [place] [address] Dr. Toy Macario IG % 0.3 % Normal 0.0-0.5 [facility] Comment on above: Performed By: #### O DEVENDRA #### [facility] [address] [place] [address] Dr. Toy Macario LYMPH # 1.0 103/ul Critically low 1.2-3.8 [facility] Comment on above: Performed By: #### O DEVENDRA #### [facility] [address] [place] [address] Dr. Toy Macario Lymphocytes/100 WBC (Bld) 8.1 % Critically low 20.5-60.0 [facility] Comment on above: Performed By: #### O DEVENDRA #### [facility] [address] [place] [address] Dr. Toy Macario MANUAL DIFF REQ NO Normal [facility] Comment on above: Performed By: #### O DEVENDRA #### [facility] [address] [place] [address] Dr. Toy Macario MCH (RBC) [Entitic mass] 28.1 pg Normal 26.7-34.0 [facility] Comment on above: Performed By: #### O DEVENDRA #### [facility] [address] [place] [address] Dr. Toy Macario MCHC (RBC) [Mass/Vol] 31.4 g/dL Normal 29.9-35.2 [facility] Comment on above: Performed By: #### O DEVENDRA #### [facility] [address] [place] [address] Dr. Toy Macario MCV (RBC) [Entitic vol] 89.7 fL Normal 81.0-99.0 [facility] Comment on above: Performed By: #### O DEVENDRA #### [facility] [address] [place] [address] Dr. Toy Macario MONO # 0.8 103/ul Normal 0.3-0.8 [facility] Comment on above: Performed By: #### O DEVENDRA #### [facility] [address] [place] [address] Dr. Toy Macario Monocytes/100 WBC (Bld) 6.3 % Normal 1.7-12.0 [facility] Comment on above: Performed By: #### O DEVENDRA #### [facility] [address] [place] [address] Dr. Toy Macario NEUT # 10.0 103/ul Critically high 1.4-6.5 [facility] Comment on above: Performed By: #### O DEVENDRA #### [facility] [address] [place] [address] Dr. Toy Macario Neutrophils/100 WBC (Bld) 84.2 % Critically high 43.0-75.0 [facility] Comment on above: Performed By: #### O DEVENRDA #### [facility] [address] [place] [address] Dr. Toy Macario Platelet mean volume (Bld) [Entitic vol] 9.5 fL Normal 9.5-13.5 [facility] Comment on above: Performed By: #### O DEVENDRA #### [facility] [address] [place] [address] Dr. Toy Macario PLT 216 103/ul Normal 150-450 [facility] Comment on above: Performed By: #### O DEVENDRA #### [facility] [address] [place] [address] Dr. Toy Macario RBC 4.55 106/ul Normal 4.20-5.40 [facility] Comment on above: Performed By: #### O DEVENDRA #### [facility] [address] [place] [address] Dr. Toy Macario WBC 11.9 103/ul Critically high 4.0-11.0 [facility] Comment on above: Performed By: #### O DEVENDRA #### [facility] [address] [place] [address] ABD/PELV W CONon 03-19-19 CT ABD/PELV W CON EXAMINATION: CT ABD/PELV W CON HISTORY: GENERALIZED ABDOMINAL PAIN COMPARISON: CT dated 09/06/2015 TECHNIQUE: IV contrast only was administered. Sagittal and coronal reformatted images were produced. Dose reduction techniques were achieved by using automated exposure control and/or adjustment of mA and/or kV according to patient size and/or use of iterative reconstruction technique. FINDINGS: The lung bases are clear. Lower mediastinal structures are stable in appearance. The liver shows stable enlargement with diffuse fatty change. The spleen and pancreas are normal. The right adrenal gland is normal. The left adrenal gland shows a small partially calcified adenoma. By report, the patient is status post cholecystectomy and the past. However, there is again seen a very distended cystic structure in the gallbladder fossa. This again contains some faint amorphous material. This cystic structure measures 6.9 cm in length on the prior study and now measures 9.3 cm. Of note, this has been present since at least 02/14/2015. On that exam, this measured just under 7 cm in length. There is grossly stable distention of the intrahepatic ducts centrally. The common bile duct is also distended. The kidneys enhance symmetrically and show no calcifications or hydronephrosis. Minimal calcified plaque is seen in the aorta and branch vessels. The large and small bowel are normal caliber. A normal appendix is seen in the right lower quadrant. There is fat deposition in the transverse colon and right colon. Pelvic organs are grossly normal. There is a simple cyst in the right ovary. Urinary bladder is empty. There is no free air or free fluid and no inflammatory stranding is seen. Osseous structures are stable in appearance. IMPRESSION: Interval enlargement of what is probably a dilated cystic duct remnant as described. This contains some hazy amorphous material, and there is associated dilation of the common bile duct and of the central hepatic ducts. No abnormality seen to clearly account for the left-sided abdominal pain and vomiting. Stable hepatomegaly with diffuse fatty change in the liver. Electronically authenticated by: ART NIX Date: 2021-03-19 15:19 Normal [facility] CULTURE URINEon 03-19-2021 CULTURE URINE Culture Observations : LIGHT GROWTH OF MIXED GENITAL CHRIS. NO POTENTIAL PATHOGENS SEEN. Normal [facility] Comment on above: Performed By: #### C VDTB #### [facility] [address] [address] [address] Toy Macario [facility]06 SARS-CoV-2 (COVID-19) RNA PITO+probe Ql (Unsp spec) Not detected Normal NOT DETECTED [facility] Comment on above: Result Comment: When diagnostic testing is negative, the possibility of a false negative should be considered in the context of a patient's recent exposures and the presence of clinical signs and symptoms consistent with SARS-CoV-2. This test is not yet approved or cleared by the [place] FDA. When there are no FDA-approved or cleared tests available, and other criteria are met, FDA can make tests available under an emergency access mechanism called an Emergency Use Authorization (EUA). The EUA for this test is supported by the [place] of Health and Human Service's declaration that circumstances exist to justify the emergency use of in vitro diagnostics for the detection and/or diagnosis of the virus that causes COVID-19. This EUA will remain in effect for the duration of the COVID-19 declaration justifying emergency of IVDs, unless it is terminated or revoked by the FDA (after which the test may no longer be used). Performed By: #### C GRACY NELSON #### [facility] [address] [place] [address] Dr. Toy CAMARILLO URINE PROFILEon 2 Bilirubin Ql (U) SMALL Abnormal NEGATIVE [facility] Comment on above: Performed By: #### C VDTBH #### [facility] [address] [place] [address] Dr. Toy Macario Clarity (U) SL CLOUDY Abnormal CLEAR [facility] Comment on above: Performed By: #### C VDTBH #### [facility] [address] [place] [address] Dr. Toy Macario Color (U) YELLOW Normal YELLOW [facility] Comment on above: Performed By: #### C VDTBH #### [facility] [address] [place] [address] Dr. Toy [place] A micrscopic examination will be performed if indicated. Normal [facility] Comment on above: Performed By: #### C VDTBH #### [facility] [address] [place] [address] Dr. Toy Macario Glucose Ql (U) Negative Normal NEGATIVE [facility] Comment on above: Performed By: #### C VDTBH #### [facility] [address] [place] [address] Dr. Toy Macario Hemoglobin Ql (U) Negative Normal NEGATIVE [facility] Comment on above: Performed By: #### C VDTBH #### [facility] [address] [place] [address] Dr. Toy Macario Ketones Ql (U) Negative Normal NEGATIVE [facility] Comment on above: Performed By: #### C VDTBH #### [facility] [address] [place] [address] Dr. Toy Macario LEUKOCYTES SMALL Abnormal NEGATIVE [facility] Comment on above: Performed By: #### C VDTBH #### [facility] [address] [place] [address] Dr. Toy Macario Nitrite Ql (U) Negative Normal NEGATIVE [facility] Comment on above: Performed By: #### C VDTBH #### [facility] [address] [place] [address] Dr. Toy Macario pH (U) 6.0 [pH] Normal 5-9 [facility] Comment on above: Performed By: #### C VDTBH #### [facility] [address] [place] [address] Dr. Toy Macario Protein (U) [Mass/Vol] 30 mg/dL Abnormal NEGAT CHRISTINA/ TRACE [facility] Comment on above: Performed By: #### C VDTBH #### [facility] [address] [place] [address] Dr. Toy Macario SPEC GRAVITY >=1.030 Abnormal 1.005-<=1.0 25 [facility] Comment on above: Performed By: #### C VDTBH #### [facility] [address] [place] [address] Dr. Toy Macario UR MICRO IND INDICATED Normal [facility] Comment on above: Performed By: #### C VDTBH #### [facility] [address] [place] [address] Dr. Toy Macario Urobilinogen Qn (U) 1.0 {Lisha'U}/dL Normal 0.2 - 1. 0 [facility] Comment on above: Performed By: #### C VDTBH #### [facility] [address] [place] [address] Dr. Toy Macario INFLUENZA A AND B AGon 03-19 INFLUANEGH SEE BELOW Normal [facility] Comment on above: Result Comment: Nega tive for Flu A protein angiten. Infection due to Flu A cannot be ruled out. Flu A angiten in the sample may be below the detection limit of the test. Performed By: #### L IPA, CMP #### [facility] [address] [place] [address] Dr. Toy Macario INFLUBNEG SEE BELOW Normal [facility] Comment on above: Result Comment: Nega tive for Flu B protein antigen. Infection due to Flu B cannot be ruled out. Flu B antigen in the sample may be below the detection limit of the test. Performed By: #### L IPA, CMP #### [facility] [address] [place] [address] Dr. Toy Macario INFLUENZA A AG Negative Normal NEGATIVE SEE COMMENT [facility] Comment on above: Performed By: #### L IPA, CMP #### [facility] [address] [place] [address] Dr. Toy Macario INFLUENZA B AG Negative Normal NEGATIVE SEE COMMENT [facility] Comment on above: Performed By: #### L IPA, CMP #### [facility] [address] [place] [address] Dr. Toy Macario INTERNAL CONTROLS Within Normal Limits Normal Wi thin Normal Limits [facility] Comment on above: Performed By: #### L IPA, CMP #### [facility] [address] [place] [address] Dr. Toy Macario LIPASEon 03-19-2021 Lipase [Catalytic activity/Vol] 134.0 U/L Normal 23.0-300.0 [facility] Comment on above: Performed By: #### C MP, LIPA #### [facility] [address] [place] [address] Dr. Toy Macario URon 03-19-2021 , QUAL Negative Normal NEGATIVE [facility] Comment on above: Performed By: #### O DEVENDRA #### [facility] [address] [place] [address] Dr. Toy Macario PROF 14(COMP METB)on 022 Albumin [Mass/Vol] 3.3 g/dL Critically low 3.5-5.0 Th [facility] Comment on above: Performed By: #### C MP, LIPA #### [facility] [address] [place] [address] Dr. Toy Macario Albumin/Globulin [Mass ratio] 0.8 {ratio} Normal [facility] Comment on above: Performed By: #### C MP, LIPA #### [facility] [address] [place] [address] Dr. Toy Macario ALP [Catalytic activity/Vol] 151 U/L Critically high 38-126 [facility] Comment on above: Performed By: #### C MP, LIPA #### [facility] [address] [place] [address] Dr. Toy Macario ALT [Catalytic activity/Vol] 105 U/L Critically high 9-52 [facility] Comment on above: Performed By: #### C MP, LIPA #### [facility] [address] [place] [address] Dr. Toy Macario Anion gap [Moles/Vol] 11.6 mmol/L Normal [facility] Comment on above: Performed By: #### C MP, LIPA #### [facility] [address] [place] [address] Dr. Toy Macario AST [Catalytic activity/Vol] 222 U/L Critically high 14-36 [facility] Comment on above: Performed By: #### C MP, LIPA #### [facility] [address] [place] [address] Dr. Toy Macario Bilirubin [Mass/Vol] 1.3 mg/dL Normal 0.2-1.3 [facility] Comment on above: Performed By: #### C MP, LIPA #### [facility] [address] [place] [address] Dr. Toy Macario Calcium [Mass/Vol] 8.8 mg/dL Normal 8.4-10.2 [facility] Comment on above: Performed By: #### C MP, LIPA #### [facility] [address] [place] [address] Dr. Toy Macario Chloride [Moles/Vol] 107 mmol/L Normal 98-107 [facility] Comment on above: Performed By: #### C MP, LIPA #### [facility] [address] [place] [address] Dr. Toy Macario CO2 [Moles/Vol] 25.7 mmol/L Normal 22.0-30.0 [facility] Comment on above: Performed By: #### C MP, LIPA #### [facility] [address] [place] [address] Dr. Toy Macario Creatinine [Mass/Vol] 0.92 mg/dL Normal 0.52-1.04 [facility] Comment on above: Performed By: #### C MP, LIPA #### [facility] [address] [place] [address] Dr. Toy Macario EGFR-AF FAROESE >60 Normal >=60 [facility] Comment on above: Performed By: #### C MP, LIPA #### [facility] [address] [address] [address] Toy Macario EGFR-NON AF FAROESE >60 Normal >=60 [facility] Comment on above: Performed By: #### C MP, LIPA #### [facility] [address] [place] [address] Dr. Toy Macario Globulin (S) [Mass/Vol] 3.9 g/dL Normal [facility] Comment on above: Performed By: #### C MP, LIPA #### [facility] [address] [place] [address] Dr. Toy Macario Glucose [Mass/Vol] 168 mg/dL Critically high 74-106 [facility] Comment on above: Performed By: #### C MP, LIPA #### [facility] [address] [place] [address] Dr. Toy Macario Potassium [Moles/Vol] 4.3 mmol/L Normal 3.4-5.0 [facility] Comment on above: Performed By: #### C MP, LIPA #### [facility] [address] [place] [address] Dr. Toy Macario Protein [Mass/Vol] 7.2 g/dL Normal 6.1-8.2 [facility] Comment on above: Performed By: #### C MP, LIPA #### [facility] [address] [place] [address] Dr. Toy Macario Sodium [Moles/Vol] 140 mmol/L Normal 137-145 [facility] Comment on above: Performed By: #### C MP, LIPA #### [facility] [address] [place] [address] Dr. Toy Macario Urea nitrogen [Mass/Vol] 8.0 mg/dL Normal 7.0-17.0 [facility] Comment on above: Performed By: #### C LSELIE, LIPA #### [facility] [address] [place] [address] Dr. Toy Macario Urea nitrogen/Creatinine [Mass ratio] 8.7 mg/mg Normal [facility] Comment on above: Performed By: #### C LESLIE, LIPA #### [facility] [address] [place] [address] Dr. Toy Macario URINE MICROSCOPIC ONLYon BACTERIA MODERATE Abnormal NONE SEEN [facility] Comment on above: Performed By: #### C VDTBH #### [facility] [address] [place] [address] Dr. Toy Macario Bacteria identified Cx Nom (U) INDICATED Normal [facility] Comment on above: Performed By: #### C VDTBH #### [facility] [address] [place] [address] Dr. Toy Macario CAST NONE SEEN Normal NONE SEEN [facility] Comment on above: Performed By: #### C VDTBH #### [facility] [address] [place] [address] Dr. Toy Macario Crystals LM Nom (Urine sed) NONE SEEN Normal NONE SEEN [facility] Comment on above: Performed By: #### C VDTBH #### [facility] [address] [place] [address] Dr. Toy Macario Epithelial cells LM Ql (Urine sed) MODERATE Abnormal NONE SEEN /RARE [facility] Comment on above: Performed By: #### C VDTBH #### [facility] [address] [place] [address] Dr. Toy Macario MUCOUS MODERATE Abnormal NONE SEEN [facility] Comment on above: Performed By: #### C VDTBH #### [facility] [address] [place] [address] Dr. Toy Macario RBC 5-10 Abnormal 0-2 [facility] Comment on above: Performed By: #### C VDTBH #### [facility] [address] [place] [address] Dr. Toy Macario WBC 10-20 Abnormal NONE SEEN [facility] Comment on above: Performed By: #### C [facility] #### [facility] [address] [place], [place] [id number] Dr. Toy Macario Coding Summaryon 09-18-2020 Coding Summary HTMLBase 64 QknyluxlHTe4nEf+PGhlYW Q+JK5KFBZkK01ecGMefR9L A4aUDL9GAPHIFIGNVL5WLT 8qaBU2XTpwX3MndcJb ZejbwQXwMJ44SSk0PGN2qC joKDffsM3izEFeL9s5CiTs LX54oC00DGwkQPCyXrA3Vr ZpbjsgbWFy L3csAkEaxTAiIta+PHRhYm xlIHdpZHRoPScxMDAlJyBz rEmaTX7nKp1mVQGsLDHtaC xhcHNlOiBj o9qkTTTdNTqqED6exJyaX7 MprOS5EFEgb9p0By86mHU+ CGXdIXC8aWmhAKvyd012Hh Ego2daDVA3 wWSsTYabIRA7L23qt7W7YH BlBTJxQGN2yOH2vA3hpVks oearM5SdgQVcShB0WSF2nC UfhZ6hzUsz lsgulR7eBxe+Y28GIX6CCA DSFI1ENph6D8ChPdgtvIF+ DM13WQVtIN19kOEroYJjh0 uarRk2ChEx ATPpATX0dUuqTEjov8HlCG BiY97wxYCsa0B4OCWheIir aCNkXxRzwIV6rQ5uUEzsbr byj9ypdzxb Pwtgb2pwqv91vJ03K49cGX ozMONpVHG2LNUwPNCltUkh au7uxY0qCc8+RJcmh9vxz7 tpnMu8BvRq FOUltbTewQayXTZ4p5TsJa 43L1FvnFxkm1ArLqu2su86 gSArk3S2kPE8YXotRVVlpF 0fMMwpSlO5 CMBlNmUmrY32sQFyWYzjEi 3tmVqmwTqjAK2vOVWwbbem LYIxnK8xDDPxiFHwuEnoSH 4wNTBpbjtm s177LfVoPHV2AHKtfEFaJ3 RsqH6dZhPuDQBeBJEwU6Yj fJIiHGwpZ565DUzuQhA2AA WomzHxC0Vt FESyeKjqRfU8u6N0Jx4Sc7 DmiqfcLND8JXeaOUA3VdX9 JbHyGtE2X2IyRrt3VGYhdF ebKB1oZ5Cd PVYoybjznpkmxNQ9HZPjAK RgoN90tNUpMLbxXx5lr3W2 q471GOTtFRUvjA48Bj0odW ogMTBwdCBU qI1ugpedd2ypccpsBxAxHM RsRWs2DXg6LMTzkOdzLbJg HFQ1YeB1XLT3eLShyY1psD ccpdjmyZ0j Oyc+M77kkB4cVKJ3FFP3qr gzVHPbvuMvUW66LF25O6Kq PjwvdGFibGU+PGRpdiBzdH zxVF7lUcPz t2mpd7OdELflT0SqFRKlKA yuWou9OUKwBBH6xUO2sC8u ABKrXHsvu7U0vRA2W1Kras Cufr3ww3qn TUCzCAjqZ05gnVOnw3N8WO DmuRM5JGEyaFwdAfEsoZ86 Oyc+YWIgoHtqc4PjLvnyz1 tix0hgfKy9 BsVsWFLcndJmcNszWAZ8u9 AqYo49S87rDLfrIJRjEKHa BQMiLCXzsOpdtk7jjM8bJn 8+PGNvbCB3 jJC6iJ3wWYUsZjZ8LCbyS7 48DbZmgJLcJdmgj7kba1xw vUk1GyDnDKDcloOxuNsmMZ M1v3LdCr03 H20pSIceOBBqVDJbTCSwSY HvjYjjhx3egI4pRu5+PC9j e1pbom24xO27dTS+PHRkIH Z5zAxjLSbm QXNgmJ8cMUxrHuW1LLByTc XdaX08zMHiYCqhHn6ulEfl lSkfAY2gZWJsdptyd260Ac Uax6xtELEr qCTmRZndZTF5A85yd5H8CP AkXEVeBVV9gKR5fA7bdNbb bjogbGVmdDsgdmVydGljYW vfVQcdV544 IHRvcDsnPlBhdGllbnQgTm FkSWx5R0ZeKwl2VVMvxAbj FH2djLBrDOdwPt7knSvokW pyFY7gGPBf cnvve711GbCem7erSQEybP KgUIueZFC9A51jk8G7QEQu MVSkACN0pCF5cY9ofHvdcp ogbGVmdDsg xdVmmZmhINbyVLzcX265WN RvcDsnPkJpcnRoIERhdGU6 SN98GI60zUNxt6I6hKI9Z1 BhZGRpbmct loxhxRS4CRMjLPZdwW95Wr 8qnWmrSa0bVIQeBFR2PWTj pGGgL0ResI0oMnAeSRPqPJ AdP8LfiOCd MWxuB976EKjcUyL5RQXcrm VrM4FyNBIzcOgrItU2r2U9 Mg5SJ4H7FF56RX47wJInp8 K4aLE5K4Kf ANUdsfyqnvnpkKQ4SJZaMO PglB08Mc4gwMxhZo5rUQJh PHD8VEWtqMZcZ9NqcP6hIo AjMDAwMDAw L3AwzWBjOMapA132DYuvZs A5RCWymgCbL7CxBFPeaTwq UxG7n3L6Jr6DXMe9BW97AU 68jLUzx3Y3 lVL5Z0ObSUTubiugkeqtcU W2WUSdSMPkxD76Kr2znOcv Xq5dVKFwWHC1TBCmsSTlS9 TcfH8mLzOo MIFyNVXhJ3YbnKJiENlbG2 80XEzaRaF2QWVfqmGtX3Ot PAYiaBhaBsN2h1X4Lo3XTE UcYE39UFM7 jNG6OT83JH87Q5YbVbwjrO FibGU+PHRhYmxlIHdpZHRo MSllHIKpZdOsuEuaRC9hHo 9yZGVyLWNv kCnqzQEjAdCbk5wyANWrES mlWL4qeVqwO9TipVD3DHXy q4t4Wb76U27zT9FdeNI+PG KukNY5fOY9 yA3zHaVcSrW6GBtfO090Lt IlzPNiAvuin5fus3zduBb8 KbH3WSTstqQvzGtkVZW1t1 NiYn80Y14n IHdpZHRoPSIxNSUiIHZhbG ntwu8myB5nRi7+PGNvbCB3 fYR7iN9aRrAkDpX2EJmbJ0 49InRvcCIv Mvcjd2rws6ajdTg4AuSpGN EyezPuwQebYIR8i5ZwEa49 V2QplRmdn4CaWly8yu78kT Ust8Z9nNS4 B6BgNIJygriqaAMrpBjoEY 0uLUNaoxzbURXeoX5hXAPv T9h8VhZqFdT6RImhO1Xflt F6QZCmxANh AAjnOMA3U74le3O6YLBsVL YkXQB4jRD6kX4psYaulfgr bGVmdDsgdmVydGljYWwtYW kxB335OLBl cGgePHIbtV7dJFMxhDMrdU ixNQ2kZROgjywqTlpITn8E O7EICJRVPTGHCLS0Z0JfAn f3POFymCda PL6gvHKjXRmyGj7bbLtdbK glGL0wUCDhljkwHNWtsF1a YRRpfDPegWvnLZ2uOOQtwy sjo294PpWw SLB6NKKzuENdI6AveM4iJh IbGKNxQVDyL0VxeVQvHNgp R356MVgwIrA8BDUxveVtO8 FsLWFsaWdu NeU3j9O5Gh5kDP6sFR6vJU l8HH33IC26iXLkr1F1fNH0 A3JyPDYmuxoylzacxGN2LQ UqBJXkeJ33 dDVwIAzhJd6qr6L0u572UD PyKAHczN41Lp6vfTdzBCYn oVCRjB1wyfbvl3gefajiEl AwMDAwMDt0 ZHa9DUSuuPqgZlYcWYF7Uz E2SJB0zSUszN3tsMgquljo sF1jObl+QFHnEWNthbU1L3 EkGja7FLDd iErvOK3evQMoEFcwCw0xmR nizWfoWG8dZIWffrkhBREm sH5sBPCvwTOxpEfkDE7aSR Fqtrbcl836 DaRwDZQ3BDXhuZDpE5LwqO 9kMvSnCOYfCZBgE6TmsPGx RXejR958SAnhCpJ0IHTfvg BsB0YgHUNq lYagQlL8n6N8Mo9NUI5DOA B6G0JkEsz1WZQkeTvbKB9b lSTsAJtiWz8beFwuwSvxRD 4wNTBpbjtw BVXgjK2qKCEtnBQyvVccKQ 1bZHXdoxhqj977NgLuZAM9 GXDhuRReI1IslQ4rDfAuUE UtNQQkF3Yh hOPzXWrdM506FZjpHfX2AX HyeuViM8BuEFUybHxqFmM4 l5L2Dt6ZkDQdXXWrLF00AY luIGEgQmVk VI27GM38Q4ZvTinacYLkeL U+PHRhYmxlIHdpZHRoPScx OABwWaWxoUetHC5zPc5jBB VyLWNvbGxh rTGvYjCds3bzCIQsOCtfYK 7naXbkS8ZwvPD1WUKge8r5 Hw29V40zP6NzlIH+PGNvbC Z6sGI7cV6o JrVhPbM1MZrkT424NePthK VuVvxzx7yzm3mqoBn6NeJy VOPalsPutRbgUOJ9y9MbZs 59N73vWXhv ZHRoPSIyMCUiIHZhbGlnbj 3emI7cCy2+UIDdiUX8zTT6 wQ2hIlMkIpE0SLxxW527My RvcCIvPjwv U34rK4MskOW+CRCaEsu0NS AttQybXT1axTOuXQrbZs4n IOX1JhElDwRgGOvwG5DbCJ Rpbmctcmln iDI7CLYdGLDeiV30Kt9osB apAh1dXQUnRAS7DBHykOUd H2YbvK8wVlGrHPDyKFAbM1 RleHQtYWxp C105HFdwNsK2MCVmhaGzC1 XhCVXfdEuvEcU0n9Y9Ds3Q eCbsgJJfTF4aOeMzGAa6E6 JfWzr4WOWv hHcdVJ7etAVcVJrlCi5oaX zugKkoAT0rQDZxooweu409 EuHrn2ctQGIlfWIgKSleFB D5H45or7I3 WLXxLLByFKA8xZX5hO1lpE lnbjogbGVmdDsgdmVydGlj BLboBJpvS362JJIlhPwsXp RHOnc1E2Fg Ixo7ISAouJcyAY1hhUNwFJ qwYj0myRimpZufMJ1mNQLp iemlr779KdXan9tlEIVfxZ QgVGltZXM7 R82hq3U7OTApICCzZZU1qH J8jY4tbTtcehjvoUFcsMwl miJmqMjrTAnkFGtiB373VW LsvRjxPa6S Byx8T0QyIpk4OUIokJnqYV 4ftVGnIFusSw7iuMvkwHcb VB1pIYEhtqzfc574YlCrr2 xkIDEwcHQg KZwaXDR4S08yr9O6EYTjIR BfWRF9vIG5rW9ynHfxszvr bGVmdDsgdmVydGljYWwtYW rmD753PGFy cDsnPlBheWVyOjwvdGQ+PC 17uu56H2XvViekZvb9MCDb EGD8zCM5lT8pAADeNFqse3 X3qNO6H1Vr cmR (more content not included)... Normal [facility] Consultation/Specialist Note on 09-16-2020 Consultation/Specialist Note HOME SLEEP STUDY DATE OF STUDY: 09/10/2020 INDICATION FOR STUDY: Sleep apnea. Home sleep testing was performed without sleep staging but with continuous measurement of body position, oxygen saturations, heart rate, snore volumes, thoracic, abdominal movement and nasal flow. As sleep is not measured for tsr-ou-rabozj home testing index time consists of time from either patient recorded lights out or from suggestive positional changes, and continuing until the patient recorded lights on or suggestive positional changes. RECORDING PARAMETERS: Recording time was 8 hours with 7 hours and 54 minutes estimated time in bed. RESPIRATORY SUMMARY: During the home sleep test procedure, the patient had a total of 46 respiratory events (1 central, 18 obstructive, 0 mixed, 27 hypopneas with at least 4 percent desaturation). During the night the apnea/hypopnea index was 5.8. Nocturnal oxygen saturations were minimally impaired with a mean saturation of 94.4 percent. The lowest saturation was 88.0 percent. The patient spent 0.1 percent of the night below 90 percent saturation. BODY POSITION STATISTICS: The patient spent 37.7 percent of sleep time on the back with an apnea/hypopnea index of 11.7 and 62.3 percent of sleep time on the side with an apnea/hypopnea index of 2.2. HEART RATE SUMMARY: The patient's mean heart rate was 74 with a minimum of 49 and a maximum of 115. RESPIRATORY DATA INTEGRITY: Excellent, with no time lost to artifacts. Respiratory data integrity was 100 percent for flow, 99.8 percent for saturation and 100 percent for pulse. IMPRESSION: 1. Home sleep test documenting obstructive sleep apnea. 2. Home sleep testing often under-estimates apnea severity. COMMENTS: Shahla Ruelas was clinically suspected of having obstructive sleep apnea. This home sleep test does confirm the presence of the disorder. Treatment is indicated. RECOMMENDATIONS: 1. The patient should return to the sleep laboratory to review these results and discuss their implications. 2. The patient could return for initiation of C-PAP by titration or auto C-PAP could be considered. 3. The patient should ensure adequate total sleep time and regular sleep-wake cycles. The principles of appropriate sleep hygiene should be encouraged. 4. The patient should continue efforts at progressive weight loss. Even moderate weight loss can result in significant improvement in respiratory events. 5 The patient should be reminded of the medical, accident and cognitive risks associated with sleep apnea. 6. Clinical correlation and follow up is advised. Uriel Stone M.D. JOB #: [id number] CC: Tamara Calero DO [Electronically Signed on: 09/16/2020 13:28 EDT] Uriel Stone MD [Verified on: 09/16/2020 13:28 EDT] Uriel Stone MD [Transcribed on: 09/16/2020 11:10 EDT] [facility] 09[facility]16-2020 Sleep Study [id number] Provider Orders [id number] [facility] 08-28-2020 Provider Orders [id number] [facility] 08-27-2020 Provider Orders [id number] [facility] Flu A/B Ag Detectionon 03-11 Flu A/B Ag Detection Specimen Descriptio n .NASOPHARYNGEAL SWABSpecial Requests NOT REPORTEDDirect Exam PRESUMPTIVE NEGATIVE for Influenza A + B antigens. PCR testing to confirm this result is available upon request. Specimen will be saved in the laboratory for 7 days. Please call [phone] if PCR testing is indicated. Report Status FINAL 03/11/2018 [facility] Comment on above: Performed By: #### F LUAD ####[facility] [place] [address] Vital Signs Date Time Vital Sign Value Performing Clinician Facility 05-18-2023 17:14-0400 Body height 167.6 cm Stephanie Webster MD Work Phone: [facility] 05-18-2023 17:14-0400 Body mass index (BMI) [Ratio] 35.67 kg/m2 Stephanie Webster MD Work Phone: [facility] 05-18-2023 17:14-0400 Body weight 100.25 kg Stephanie Webster MD Work Phone: [facility] 05-18-2023 17:14-0400 Diastolic blood pressure 70 mm[Hg] Stephanie Webster MD Work Phone: [facility] 05-18-2023 17:14-0400 Systolic blood pressure 130 mm[Hg] Stephanie Webster MD Work Phone: [facility] 04-24-2023 15:29-0500 Body height 170.18 cm DO Tamara Calero Work Phone: [facility] 04-24-2023 15:29-0500 Body mass index (BMI) [Ratio] 36.1 kg/m2 DO Tamara Calero Work Phone: [facility] 04-24-2023 15:29-0500 Body weight 104.77 kg DO Tamara Calero Work Phone: [facility] 04-24-2023 15:29-0500 Diastolic blood pressure 80 mm[Hg] DO Tamara Calero Work Phone: [facility] 04-24-2023 15:29-0500 Heart rate 84 /min DO Tamara Calero Work Phone: [facility] 04-24-2023 15:29-0500 Respiratory rate 14 /min DO Tamara Calero Work Phone: [facility] 04-24-2023 15:29-0500 SaO2% (BldA) [Mass fraction] 96 % DO Tamara Calero Work Phone: [facility] 04-24-2023 15:29-0500 Systolic blood pressure 123 mm[Hg] DO Tamara Calero Work Phone: [facility] 04-15-2023 10:20-0500 Body height 170.18 cm Priyanka Lemon Other [facility] [employer] Other 04-15-2023 10:20-0500 Body mass index (BMI) [Ratio] 36.33 kg/m2 Priyanka Lemon Other [employer] Other 04-15-2023 10:20-0500 Body temperature 98.5 [degF] Priyanka Lemon Other [employer] Other 04-15-2023 10:20-0500 Body weight 105.24 kg Priyanka Lemon Other [employer] Other 04-15-2023 10:20-0500 Diastolic blood pressure 102 mm[Hg] Priyanka Lemon Other [employer] Other 04-15-2023 10:20-0500 Respiratory rate 20 /min Priyanka Lemon Other [employer] Other 04-15-2023 10:20-0500 Systolic blood pressure 125 mm[Hg] Priyanka Lemon Other [employer] Other 02-24-2023 10:00-0500 Body height 170.18 cm Tamara Calero Other [facility] 02-24-2023 10:00-0500 Body mass index (BMI) [Ratio] 35.86 kg/m2 Tamara Calero Other [employer] Other 02-24-2023 10:00-0500 Body weight 103.87 kg Tamara Calero Other [facility] 02-24-2023 10:00-0500 Diastolic blood pressure 77 mm[Hg] Tamara Calero [facility] [facility] 02-24-2023 10:00-0500 Respiratory rate 20 /min Tamara Calero Other [facility] Other 02-24-2023 10:00-0500 Systolic blood pressure 113 mm[Hg] Tamara Calero Other [facility] 12-20-2022 12:15-0400 Body height 170.18 cm Priyanka Lemon Other [facility] Other 12-20-2022 12:15-0400 Body mass index (BMI) [Ratio] 35.36 kg/m2 Priyanka Lemon Other [facility] Other 12-20-2022 12:15-0400 Body temperature 99.1 [degF] Priyanka Lemon Other [facility] Other 12-20-2022 12:15-0400 Body weight 102.42 kg Priyanka Ion Other [facility] Other 12-20-2022 12:15-0400 Diastolic blood pressure 88 mm[Hg] Priyanka Lemon Other [facility] Other 12-20-2022 12:15-0400 Respiratory rate 18 /min Priyanka Ion Other [facility] Other 12-20-2022 12:15-0400 SaO2% (BldA) [Mass fraction] 96 % Priyanka Lemon Other [facility] Other 12-20-2022 12:15-0400 Systolic blood pressure 133 mm[Hg] Priyanka Lemon Other [facility] Other 11-22-2022 14:30-0400 Body height 170.18 cm Tamara Pearsondalton Other [facility] Other 11-22-2022 14:30-0400 Body mass index (BMI) [Ratio] 35.86 kg/m2 Tamara Pearsondalton Other [facility] Other 11-22-2022 14:30-0400 Body weight 103.87 kg Tamara Pearsondalton Other [facility] Other 11-22-2022 14:30-0400 Diastolic blood pressure 74 mm[Hg] Tamara Pearsondalton Other [facility] Other 11-22-2022 14:30-0400 Respiratory rate 18 /min Tamara Malini Other [facility] Other 11-22-2022 14:30-0400 SaO2% (BldA) [Mass fraction] 95 % Tamara Calero Other [facility] Other 11-22-2022 14:30-0400 Systolic blood pressure 114 mm[Hg] Tamara Calero Other [facility] Other 08-24-2022 14:00-0400 Body height 170.18 cm Tamara Calero Other [facility] Other 08-24-2022 14:00-0400 Body mass index (BMI) [Ratio] 35.39 kg/m2 Tamara Calero Other [facility] Other 08-24-2022 14:00-0400 Body temperature 99.2 [degF] Tamara Calero Other [facility] Other 08-24-2022 14:00-0400 Body weight 102.51 kg Tamara Calero Other [facility] Other 08-24-2022 14:00-0400 Diastolic blood pressure 74 mm[Hg] Tamara Calero Other [facility] Other 08-24-2022 14:00-0400 Respiratory rate 20 /min Tamara Calero Other [facility] Other 08-24-2022 14:00-0400 SaO2% (BldA) [Mass fraction] 94 % Tamara Calero Other [facility] Other 08-24-2022 14:00-0400 Systolic blood pressure 114 mm[Hg] Tamara Calero Other [facility] [employer] Other 05-24-2022 23:57-0400 Diastolic blood pressure 62 mm[Hg] DO Tamara Calero Work Phone: [facility] 05-24-2022 23:57-0400 Heart rate 94 /min DO Tamara Calero Work Phone: [facility] 05-24-2022 23:57-0400 Respiratory rate 16 /min DO Tamara Calero Work Phone: [facility] 05-24-2022 23:57-0400 SaO2% (BldA) [Mass fraction] 97 % DO Tamara Calero Work Phone: [facility] 05-24-2022 23:57-0400 Systolic blood pressure 122 mm[Hg] DO Tamara Calero Work Phone: [facility] 05-24-2022 20:49-0400 Body height 167.64 cm DO Tamara Calero Work Phone: [facility] 05-24-2022 20:49-0400 Body temperature 98.8 [degF] DO Tamara Calero Work Phone: [facility] 05-24-2022 20:49-0400 Body weight 98.2 kg DO Tamara Calero Work Phone: [facility] 05-18-2022 17:00-0400 Body height 170.18 cm Tamara Calero Other [facility] [employer] Other 05-18-2022 17:00-0400 Body mass index (BMI) [Ratio] 33.67 kg/m2 Tamara Calero Other [facility] [employer] Other 05-18-2022 17:00-0400 Body weight 97.52 kg Tamara Calero Other [facility] Other 05-18-2022 17:00-0400 Diastolic blood pressure 82 mm[Hg] Tamara Calero Other [facility] [employer] Other 05-18-2022 17:00-0400 Respiratory rate 20 /min Tamara Calero Other [facility] [employer] Other 05-18-2022 17:00-0400 SaO2% (BldA) [Mass fraction] 97 % Tamara Calero Other [facility] [employer] Other 05-18-2022 17:00-0400 Systolic blood pressure 136 mm[Hg] Tamara Calero Other [facility] [employer] Other 05-15-2022 11:38-0400 Body temperature 97.6 [degF] DO Tamara Calero Work Phone: [facility] 05-15-2022 11:38-0400 Diastolic blood pressure 88 mm[Hg] DO Tamara Calero Work Phone: [facility] 05-15-2022 11:38-0400 Heart rate 73 /min DO Tamara Calero Work Phone: [facility] 05-15-2022 11:38-0400 SaO2% (BldA) [Mass fraction] 96 % DO Tamara Calero Work Phone: [facility] 05-15-2022 11:38-0400 Systolic blood pressure 133 mm[Hg] DO Tamara Calero Work Phone: [facility] 05-15-2022 07:46-0400 Respiratory rate 16 /min DO Tamara Braniecki Work Phone: [facility] 05-11-2022 14:05-0500 Body height 167.64 cm DO Tamara Braniecki Work Phone: [facility] 05-11-2022 00:58-0500 Body weight 94.34 kg DO Tamara Braniecki Work Phone: [facility] 05-11-2022 00:00-0500 Diastolic blood pressure 82 mm[Hg] DO Tamara Braniecki Work Phone: [facility] 05-11-2022 00:00-0500 Heart rate 74 /min DO Tamara Braniecki Work Phone: [facility] 05-11-2022 00:00-0500 Respiratory rate 18 /min DO Tamara Braniecki Work Phone: [facility] 05-11-2022 00:00-0500 SaO2% (BldA) [Mass fraction] 96 % DO Tamara Braniecki Work Phone: [facility] 05-11-2022 00:00-0500 Systolic blood pressure 170 mm[Hg] DO Tamara Braniecki Work Phone: [facility] 05-10-2022 21:11-0500 Body height 167.64 cm DO Tamara Brananthonycki Work Phone: [facility] 05-10-2022 21:11-0500 Body temperature 98.5 [degF] DO Tamara Braniecki Work Phone: [facility] 05-10-2022 21:11-0500 Body weight 94.4 kg DO Tamara Braniecki Work Phone: [facility] 08-20-2021 12:30-0400 Body height 170.18 cm Tamaraar Kelleycki Other [facility] Other 08-20-2021 12:30-0400 Body mass index (BMI) [Ratio] 30.07 kg/m2 Tamara Calero Other [facility] Other 08-20-2021 12:30-0400 Body temperature 98.2 [degF] Tamara Calero Other [facility] Other 08-20-2021 12:30-0400 Body weight 87.09 kg Tamara Calero Other [facility] Other 08-20-2021 12:30-0400 Diastolic blood pressure 72 mm[Hg] Tamara Calero Other [facility] Other 08-20-2021 12:30-0400 Respiratory rate 18 /min Tamara Calero Other [facility] Other 08-20-2021 12:30-0400 SaO2% (BldA) [Mass fraction] 99 % Tamara Calero Other [facility] Other 08-20-2021 12:30-0400 Systolic blood pressure 118 mm[Hg] Tamara Calero Other [facility] Other 08-10-2021 14:48-0400 [facility]-10-[facility]21 14:48-0400 Body mass index (BMI) [Ratio] 32.77 kg/m2 [facility] 08-10-2021 14:48-0400 Body temperature 97.7 [degF] [facility] 08-10-2021 14:48-0400 Body [facility] 92.08 [facility] 08-10-2021 14:48-0400 Diastolic blood pressure 62 mm[Hg] [facility] 08-10-2021 14:48-0400 Heart rate 81 /min [facility] 08-10-2021 14:48-0400 Respiratory rate 16 /min [facility] 08-10-2021 14:48-0400 SaO2% (BldA) [Mass fraction] 100 % [facility] 08-10-2021 14:48-0400 Systolic blood pressure 138 mm[Hg] [facility] 08-04-2021 05:03-0400 Body temperature 98.49 [degF] Dennis Sarmiento MD Work Phone: [facility] 08-04-2021 05:03-0400 Diastolic blood pressure 48 mm[Hg] Dennis Sarmiento MD Work Phone: [facility] 08-04-2021 05:03-0400 Heart rate 70 /min Dennis Sarmiento MD Work Phone: [facility] 08-04-2021 05:03-0400 Respiratory rate 16 /min Dennis Sarmiento MD Work Phone: [facility] 08-04-2021 05:03-0400 SaO2% (BldA) [Mass fraction] 97 % Dennis Sarmiento MD Work Phone: [facility] 08-04-2021 05:03-0400 Systolic blood pressure 110 mm[Hg] Dennis Sarmiento MD Work Phone: [facility] 07-31-2021 02:14-0400 Body height 177.8 cm Dennis Sarmiento MD Work Phone: [facility] 07-31-2021 02:14-0400 Body mass index (BMI) [Ratio] 30.42 kg/m2 Dennis Sarmiento MD Work Phone: [facility] 07-31-2021 02:14-0400 Body weight 96.16 kg Dennis Sarmiento MD Work Phone: [facility] 07-31-2021 01:15-0400 SaO2% (BldA) [Mass fraction] 97.8 % Dennis Sarmiento MD Work Phone: [facility] 07-30-2021 20:20-0400 SaO2% (BldA) [Mass fraction] 98.6 % Dennis Sarmiento MD Work Phone: [facility] 07-30-2021 17:53-0400 SaO2% (BldA) [Mass fraction] 98.5 % Dennis Sarmiento MD Work Phone: [facility] 07-30-2021 17:00-0400 SaO2% (BldA) [Mass fraction] 98.1 % Dennis Sarmiento MD Work Phone: [facility] 07-15-2021 12:58-0400 Body height 179.1 cm Marcella Luevano [employer] Work Phone: [facility] 07-15-2021 12:58-0400 Body mass index (BMI) [Ratio] 29.99 kg/m2 Marcella Luevano [employer] Work Phone: [facility] 07-15-2021 12:58-0400 Body temperature 97 [degF] Marcella Luevano [employer] Work Phone: [facility] 07-15-2021 12:58-0400 Body weight 96.16 kg Marcella Luevano [employer] Work Phone: [facility] 07-15-2021 12:58-0400 Diastolic blood pressure 62 mm[Hg] Marcella Luevano [employer] Work Phone: [facility] 07-15-2021 12:58-0400 Heart rate 75 /min Marcella Luevano [employer] Work Phone: [facility] 07-15-2021 12:58-0400 Respiratory rate 16 /min Marcella Luevano [employer] Work Phone: [facility] 07-15-2021 12:58-0400 SaO2% (BldA) [Mass fraction] 96 % Marcella Luevano [employer] Work Phone: [facility] 07-15-2021 12:58-0400 Systolic blood pressure 117 mm[Hg] Marcella Luevano [employer] Work Phone: [facility] 06-16-2021 11:35-0400 Diastolic blood pressure 77 mm[Hg] Leobardo Barry MD Work Phone: [facility] 06-16-2021 11:35-0400 Heart rate 73 /min Leobardo Barry MD Work Phone: [facility] 06-16-2021 11:35-0400 Respiratory rate 12 /min Leobardo Barry MD Work Phone: [facility] 06-16-2021 11:35-0400 SaO2% (BldA) [Mass fraction] 99 % Leobardo Barry MD Work Phone: [facility] 06-16-2021 11:35-0400 Systolic blood pressure 117 mm[Hg] Leobardo Barry MD Work Phone: [facility] 06-16-2021 11:05-0400 Body temperature 97.2 [degF] Leobardo Barry MD Work Phone: [facility] 06-11-2021 14:04-0400 Body height 168.9 cm Leigh Ann Teagan [employer] Work Phone: [facility] 06-11-2021 14:04-0400 Body mass index (BMI) [Ratio] 33.39 kg/m2 Leigh Ann Candelaria [employer] Work Phone: [facility] 06-11-2021 14:04-0400 Body weight 95.25 kg Leigh Ann Candelaria [employer] Work Phone: [facility] 06-07-2021 11:45-0400 Body height 170.18 cm Tamara Calero Other [facility] Other 06-07-2021 11:45-0400 Body mass index (BMI) [Ratio] 32.57 kg/m2 Tamara Calero Other [facility] Other 06-07-2021 11:45-0400 Body weight 94.35 kg Tamara Calero Other [facility] Other 06-07-2021 11:45-0400 Diastolic blood pressure 69 mm[Hg] Tamara Calero Other [facility] Other 06-07-2021 11:45-0400 Respiratory rate 18 /min Tamara Calero Other [facility] Other 06-07-2021 11:45-0400 SaO2% (BldA) [Mass fraction] 98 % Tamara Calero Other [facility] Other 06-07-2021 11:45-0400 Systolic blood pressure 113 mm[Hg] Tamara Calero Other [facility] Other Encounters Encounter Date Encounter Type Care Provider Facility Start: 07-03-2023 End: 07-03-2023 ambulatory [facility] Start: 07-03-2023 Encounter for gynecological examination (general) (routine) without abnormal findings [facility] Start: 06-28-2023 End: 06-28-2023 [facility] Start: 05-18-2023 End: 05-18-[address] [facility] Start: 05-18-2023 End: 05-18-2023 Office outpatient new 60 minutes Stephanie Webster MD Work Phone: [facility] Comment on above: Abnormal CT scan (Pr imary Dx); Cigarette smoker motivated to quit; Claudication ([facility]); Blue toe syndrome of left lower extremity ([facility]) Start: 05-08-2023 End: 05-08-2023 ambulatory Josette Art Facility:[facility] Start: 04-24-2023 End: 04-24-2023 ambulatory DO Tamarara Calero Work Phone: [facility] Work Phone: Start: 04-24-2023 End: 04-24-2023 Patient encounter procedure DO Tamara Calero Work Phone: [facility] Work Phone: Start: 04-15-2023 End: 04-15-2023 ambulatory Priyanka Lemon Other [facility] Other Start: 04-15-2023 Office outpatient vi sit 15 minutes Priyanka Lemon [facility] [place] Start: 04-05-2023 ambulatory Tamara Calero Facil ity:[facility] Start: 02-24-2023 End: 02-24-2023 ambulatory Tamara Ryannyesenia Other [facility] Other Start: 02-24-2023 Office outpatient vi sit 25 minutes Tamara Calero [facility] [place] Start: 02-24-2023 End: 02-24-2023 Patient encounter procedure DO Tamara Calero Work Phone: [facility] Work Phone: Start: 02-01-2023 Registered Recurring DO Stanford Calero Work Phone: [facility] Start: 12-20-2022 End: 12-20-2022 ambulatory Priyanka Lemon Other [facility] Other Start: 12-20-2022 Office outpatient vi sit 25 minutes Priyanka Ion [facility] [place] Start: 12-05-2022 End: 12-05-2022 ambulatory Tamara Calero Other [facility] Other Start: 12-05-2022 Telephone encounter Tamara White i [employer] Start: 11-22-2022 End: 11-22-2022 ambulatory Tamara Calero Other [facility] Other Start: 11-22-2022 Office outpatient vi sit [address] [facility] Start: 11-14-2022 End: 11-14-2022 ambulatory Tamara Calero Other [facility] Other Start: 11-14-2022 Telephone encounter Tamara White i [facility] Start: 11-02-2022 End: 11-02-2022 ambulatory Tamara Calero Other [facility] Other Start: 11-02-2022 Telephone encounter Tamara White i [facility] Start: 08-24-2022 End: 08-24-2022 ambulatory Tamara Calero Other [facility] Other Start: 08-24-2022 Encounter for other specified special examinations Tamara Calero [facility] Start: 08-24-2022 Periodic preventive med est patient 40-[address]yrs Tamara Calero [facility] Start: 08-02-2022 Letter encounter Dennis godoy MD Work Phone: [facility] Start: 05-30-2022 End: 05-30-2022 ambulatory Tamara Calero Other [facility] Other Start: 05-30-2022 Telephone encounter Tamara White i [facility] Start: 05-24-2022 Evaluation and management of inpatient DO Tamara Calero Work Phone: [facility] Work Phone: Start: 05-24-2022 End: 05-24-2022 ambulatory Tamara Calero Other [facility] [employer] Other Start: 05-24-2022 Telephone encounter Tamara White i [facility] Start: 05-18-2022 End: 05-18-2022 ambulatory Tamara Calero Other [facility] Other Start: 05-18-2022 Office outpatient vi sit [address] [facility] Start: 05-11-2022 End: 05-11-2022 ambulatory Tamara Calero Other [facility] Other Start: 05-11-2022 Telephone encounter Tamara White i [facility] Start: 05-10-2022 End: 05-15-2022 Evaluation and management of inpatient DO Tamara Calero Work Phone: [facility] Work Phone: Start: 05-05-2022 Letter encounter Dennis godoy MD Work Phone: [facility] Start: 03-15-2022 End: 03-15-2022 ambulatory Tamara Calero Other [facility] Other Start: 03-15-2022 Office outpatient vi sit [address] [facility] Start: 03-13-2022 End: 03-13-[address] DOCTOR SAUNDERS Facility: Start: 02-14-2022 End: 02-14-2022 Telemedicine consultation with patient Dennis Sarmiento MD Work Phone: [facility] Oncology Surgical Comment on above: NO SHOW (Primary Dx) Start: 02-14-2022 ambulatory DENNIS SHE[facility] Start: 02-01-2022 Letter encounter [facility] Start: 11-15-2021 End: 11-15-2021 ambulatory Tamara Calero Other [facility] Other Start: 11-15-2021 Telephone encounter Tamara White i [facility] Start: 09-02-2021 ambulatory iNcole Garcia RN [facility] Start: 09-02-2021 Documentation procedure Nicole byers RN [facility] Start: 08-24-2021 End: 08-25-2021 ambulatory SELF PATIENT Facility:[facility] Start: 08-20-2021 End: 08-20-2021 ambulatory Tamara Calero Other [facility] Other Start: 08-20-2021 Encounter for genera l adult medical examination without abnormal findings Tamara Malini [facility] Start: 08-20-2021 Periodic preventive med est patient 40-64yrs Tamara Whiteyesenia [facility] Start: 08-16-2021 End: 08-16-2021 Telemedicine consultation with patient Dennis Sarmiento MD Work Phone: [facility] Surgical Comment on above: Liver cyst (Primary Dx) Start: 08-16-2021 ambulatory JOHAN ELLYNYA Facility: [facility] Start: 08-10-2021 End: 08-10-2021 Office outpatient visit 25 minutes Blue Surgery Resident [facility] Surgery General Comment on above: Postoperative follow -up (Primary Dx); Body mass index (BMI) 32.0-32.9, adult Start: 08-02-2021 Letter encounter Debo garza [employer] Work Phone: [facility] Start: 08-01-2021 Letter encounter Debo garza [employer] Work Phone: [facility] Surgery General Start: 07-30-2021 End: 07-30-2021 Subsequent hospital visit by physician Dennis Sarmiento MD Work Phone: [facility] Radiology Comment on above: Arrived Start: 07-30-2021 Letter encounter Debo garza [employer] Work Phone: [facility] Radiology Start: 07-30-2021 End: 08-04-2021 Evaluation and management of inpatient Dennis Sarmiento MD Work Phone: Inpatient [facility] Comment on above: Liver cyst (Primary Dx); Cyst of gallbladder; Postoperative pain Start: 07-16-2021 Telephone encounter Leandra hernandez [facility] Work Phone: [facility] Comment on above: Anemia; Consult with specialist Start: 07-15-2021 End: 07-16-2021 Office outpatient new 45 minutes Marcella Chloé [employer] Work Phone: [facility] [place] Pre-Surgical Evaluation Comment on above: Preop testing (Prima ry Dx); Iron deficiency anemia, unspecified iron deficiency anemia type; Body mass index (BMI) 29.0-29.9, adult Start: 07-15-2021 End: 07-16-2021 Patient encounter status Marcella Camaratiffany [employer] Work Phone: [facility] [place] Pre-Surgical Evaluation Start: 07-07-2021 Letter encounter Dennis nuñez MD Work Phone: [facility] Surgery General Start: 07-06-2021 Admission to [facility] Dennis Sarmiento MD Work Phone: [facility] Surgery General Start: 07-02-2021 End: 07-02-2021 ambulatory Tamara Calero Other [facility] Other Start: 07-02-2021 Telephone encounter Tamara White i [facility] Start: 06-16-2021 End: 06-16-2021 Subsequent hospital visit by physician Leobardo Barry MD Work Phone: [facility] Comment on above: Bile duct obstructio n; 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 Start: 06-14-2021 End: 06-15-[address] DOCTOR ELKINS Facility:[facility] Start: 06-11-2021 End: 06-11-2021 Telephone encounter Leigh Ann Candelaria SAMIRA Work Phone: [facility] Pre Surgical Evaluation Comment on above: Arrived Start: 06-07-2021 End: 06-07-2021 ambulatory Tamara Calero Other [facility] Other Start: 06-07-2021 Office outpatient vi sit [address] [facility] Start: 04-16-2021 End: 04-22-2021 Evaluation and management of inpatient DR DOCTOR ELKINS Facility:[facility] Start: 03-19-2021 End: 03-19-[address] DOCTOR ELKINS Facility:[facility] Start: 03-11-2018 End: 03-11-2018 Emergency department patient visit [facility] Procedures Date Procedure Procedure Detail Performing Clinician Start: 06-24-2022 Mammography Stephanie Webster MD Work Phone: Start: 06-22-2022 Microscopic observation [Identifier] in Cervix by Cyto stain Stephanie Webster MD Work Phone: Start: 05-24-2022 SARS Antigen (LFIA) DO Tamara Calero Work Phone: Start: 05-10-2022 Urine culture DO Tamara Calero Work Phone: Start: 08-03-2021 End: 08-03-2021 Assay of magnesium Madeleine Hooks MD Work Phone: Start: 08-03-2021 Hepatic function panel Madeleine Hooks MD Work Phone: Start: 08-02-2021 Hepatic function panel Madeleine Hooks MD Work Phone: Start: 08-02-2021 End: 08-02-2021 Assay of magnesium Madeleine Kit Mauro Hooks MD Work Phone: Start: 08-01-2021 Ct abdomen & pelvis w/contrast material Ralph Carrasco MD Work Phone: Start: 08-01-2021 Thromboplastin time partial plasma/whole blood Madeleine Hooks MD Work Phone: Start: 08-01-2021 Hepatic function panel Madeleine Hooks MD Work Phone: Start: 08-01-2021 End: 08-01-2021 Assay of magnesium Madeleine Kit Mauro Hooks MD Work Phone: Start: 07-31-2021 Hepatic function panel Madeleine Hooks MD Work Phone: Start: 07-31-2021 End: 07-31-2021 Assay of magnesium Madeleine Kit Mauro Hooks MD Work Phone: Start: 07-31-2021 Assay of lactate Al Mascorro MD Work Phone: Start: 07-31-2021 Blood gases any combination ph pco2 po2 co2 hco3 Al Mascorro MD Work Phone: Start: 07-31-2021 Carboxyhemoglobin measurement Al pak MD Work Phone: Start: 07-30-2021 Fluoroscopy up to 1 hour physician/qhp time Dennis Sarmiento MD Work Phone: Start: 07-30-2021 Assay of lactate Jean Ojeda MD Work Phone: Start: 07-30-2021 Blood gases any combination ph pco2 po2 co2 hco3 Jean Ojeda MD Work Phone: Start: 07-30-2021 Carboxyhemoglobin measurement Jean cardenas MD Work Phone: Start: 07-30-2021 FFP Adrian Bermudez [employer] Work Phone: Start: 07-30-2021 PLASMA STATUS Adrian Bermudez [employer] Work Phone: Start: 07-30-2021 RED BLOOD CELL COMPONENT Adrian lopez [employer] Work Phone: Start: 07-30-2021 RED BLOOD CELL UNIT STATUS Adrian calle [employer] Work Phone: Start: 07-30-2021 End: 07-30-2021 Assay of lactate Adrian Bermudez [employer] Work Phone: Start: 07-30-2021 End: 07-30-2021 Blood gases any combination ph pco2 po2 co2 hco3 Adrian Bermudez [employer] Work Phone: Start: 07-30-2021 End: 07-30-2021 Carboxyhemoglobin measurement Felix Bermudez [employer] Work Phone: Start: 07-30-2021 End: 07-30-2021 Transfusion of packed red blood cells Adrian Bermudez [employer] Work Phone: Start: 07-30-2021 Cul bact xcpt urine blood/stool aerobic isol Dennis Sarmiento MD Work Phone: Start: 07-30-2021 Cytology examination - general Dennis Sarmiento MD Work Phone: Start: 07-30-2021 RBC leukocytes reduced Adrian byers [employer] Work Phone: Start: 07-30-2021 RED BLOOD CELL UNIT STATUS Adrian calle [employer] Work Phone: Start: 07-30-2021 End: 07-30-2021 EXPLORATION, COMMON BILE DUCT Dennis Waldron MD Work Phone: Start: 07-30-2021 End: 05-27-2022 LAPAROSCOPY, DIAGNOSTIC Dennis godoy MD Work Phone: Start: 07-30-2021 Urine test visual color cmprsn antonio Sarmiento MD Work Phone: Start: 07-30-2021 Blood typing, ABO, Rho(D) and RBC antibody screening Marcella Luevano [facility] Work Phone: Start: 07-15-2021 Assay of ferritin [facility] Work Phone: Start: 06-16-2021 Ercp dx collection specimen brushing/washing Leobardo Barry MD Work Phone: Start: 06-16-2021 Urine test visual color hu Barry MD Work Phone: Start: 04-20-2021 Introduction of Nutritional Substance into Central Vein, Percutaneous Approach DR DOCTOR ELKINS Start: 04-19-2021 Insertion of Infusion Device into Upper Vein, Percutaneous Approach DR DOCTOR ELKINS Start: 05-31-2020 Adult depression screening assessment Stephanie Websetr MD Work Phone: Start: 03-11-2018 RAPID INFLUENZA A/B ANTIGENS DIPESH MORRIS Plan of Treatment Date Care Activity Detail Author Start: 03-22-2029 DTaP,Tdap and Td Vaccines (2 - Td or Tdap) DTaP,Tdap and Td Vaccines (2 - Td or Tdap) [facility] Start: 03-22-2029 Tetanus vaccination [facility] Start: 01-29-2028 Shingles (RZV) Vaccine (1 of 2) Shingles (RZV) Vaccine (1 of 2) [facility] Start: 06-22-2025 Screening for malignant neoplasm of cervix Pap Smear [facility] Start: 05-17-2024 Adult BMI Screening Adult BMI Screening [facility] Start: 07-21-2023 Tobacco Screening Tobacco Screening [facility] Start: 06-25-2023 Screening for malignant neoplasm of breast Mammogram [facility] Start: 06-23-2023 Adult BMI Follow Up Plan Adult BMI Follow Up Plan [facility] Start: 05-18-2023 End: 05-17-2024 US.doppler Extremity arteries - bilateral for physiologic artery study Vas art doppler lwr bilat mult lev/PVR Vascular Ultrasound Routine Abnormal CT scan Expected: 05/18/2023, Expires: 05/17/2024 [employer] Work Phone: Comment on above: Expected: 05/18/2023, Expires: Start: 11-04-2022 Influenza vaccination [facility] [employer] Start: 08-03-2022 Basic metabolic 2000 panel - Serum or Plasma [facility] Start: 08-02-2022 Basic metabolic 2000 panel - Serum or Plasma Basic Metabolic Panel [facility] Start: 08-01-2022 Basic metabolic 2000 panel - Serum or Plasma Basic Metabolic Panel [facility] Start: 07-31-2022 Basic metabolic 2000 panel - Serum or Plasma Basic Metabolic Panel [facility] Start: 05-25-2022 End: 05-25-2022 [facility] Start: 05-25-2022 Hospital admission [facility] Start: 05-15-2022 [facility] Start: 05-11-2022 [facility] Start: 05-11-2022 Hospital admission [facility] Start: 05-11-2022 [facility] Start: 05-10-2022 Bacteria identified in Urine by Culture Urine Culture [facility] Start: 04-28-2022 Basic metabolic 2000 panel - Serum or Plasma Basic Metabolic Panel [facility] Start: 04-23-2022 Hemoglobin A1c measurement Hemoglobin A1C [facility] Start: 02-14-2022 End: 02-14-2022 Telemedicine consultation with patient 02/14/2022 Telemedicine Oncology Surgery Dennis Sarmiento MD [address] [place] [address] [facility] Oncology Surgical Start: 12-04-2021 Influenza vaccination Influenza Vaccine (#1) [facility] Start: 08-24-2021 End: 08-24-2021 Patient encounter procedure 08/24/2021 Office Visit General Surgery [facility] Surgery General Start: 08-16-2021 End: 08-16-2021 Evaluation and management of inpatient 08/16/2021 Telemedicine Oncology Surgery Dennis Sarmiento MD [address] [place] [id number] [facility] Start: 08-16-2021 End: 08-16-2021 Telemedicine consultation with patient 08/16/2021 Telemedicine Oncology Surgery Dennis Sarmiento MD [address] [place] [id number] [facility] Oncology Surgical Start: 08-10-2021 End: 08-10-2021 Patient encounter procedure 08/10/2021 Office Visit General Surgery [facility] Surgery General Start: 07-30-2021 End: 07-30-2021 Admission to same day surgery center 07/30/2021 Surgery General Surgery Dennis Sarmiento MD [address] [place] [id number] HEPATECTOMY, PARTIAL, LOBECTOMY [facility] Main OR Comment on above: HEPATECTOMY, PARTIAL, LOBECTOMY Start: 07-30-2021 End: 07-30-2021 EXPLORATION, COMMON BILE DUCT EXPLORATION, COMMON BILE DUCT Routine scheduled Cyst of gallbladder Liver cyst 07/30/2021 10:53 AM EDT [facility] Start: 07-30-2021 End: 07-30-2021 HEPATECTOMY, PARTIAL, LOBECTOMY HEPATECTOMY, PARTIAL, LOBECTOMY Routine scheduled Cyst of gallbladder Liver cyst 07/30/2021 10:53 AM EDT [facility] Start: 07-30-2021 End: 07-30-2021 LAPAROSCOPY, DIAGNOSTIC LAPAROSCOPY, DIAGNOSTIC Routine scheduled Cyst of gallbladder Liver cyst 07/30/2021 10:53 AM EDT [facility] Start: 07-30-2021 Subsequent hospital visit by physician 07/30/2021 Hospital Encounter General Surgery Dennis Sarmiento MD [address] [place] [id number] [facility] Main OR Start: 07-15-2021 End: 07-15-2021 Patient encounter procedure 07/15/2021 Office Visit Presurgical Evaluation Claudia Luevanoah, [employer] [address] [place] [address] [place] [address] [facility] [place] Pre-Surgical Evaluation Start: 07-07-2021 End: 07-07-2021 Evaluation and management of inpatient 07/07/2021 Office Visit Internal Medicine Jennifer Khan MD [address] [place] [id number] [facility] [employer] Start: 06-22-2021 End: 06-22-2021 Patient encounter procedure 06/22/2021 Office Visit General Surgery Dennis Sarmiento MD [address] [place] [id number] [facility] Surgery General Start: 06-16-2021 End: 06-16-2021 Admission to same day surgery center 06/16/2021 Surgery Gastroenterology Leobardo Barry MD [address] [place] [address] [place] [address] ERCP, GENERAL ANESTHESIA [facility] Comment on above: ERCP, GENERAL ANESTHESIA Start: 06-16-2021 End: 06-16-2021 ERCP, GENERAL ANESTHESIA [facility] Start: 06-16-2021 Subsequent hospital visit by physician 06/16/2021 Hospital Encounter Gastroenterology Leobardo Barry MD [address] [place] [address] [place] [address] [facility] Start: 05-31-2021 Depression Screening Depression Screening [facility] Start: 2018 Screening for malignant neoplasm of breast [facility]ammography [facility] Start: 1999 Screening for malignant neoplasm of cervix Pap Smear [facility] Start: 01-29-1996 Hepatitis C screening Hepatitis C Antibody [facility] Start: 01-29-1984 Pneumococcal vaccination [facility] Start: 1983 COVID-19 Vaccine (#1) COVID-19 Vaccine (#1) [facility] Start: 1983 COVID-19 Vaccine (1) COVID-19 Vaccine (1) [facility] Start: 1978 COVID-19 Vaccine (#1) COVID-19 Vaccine (#1) [facility] Start: 1978 Tobacco Counseling Tobacco Counseling [facility] Calculated LDL cholesterol level [facility] Cholesterol.total/Ch o lesterol in HDL [Mass Ratio] in Serum or Plasma [facility] Culture bacterial an y source anaerobic iso&id ANAEROBIC CULTURE, MISC Microbiology Routine Cyst of gallbladder Liver cyst 07/30/2021 4:19 PM EDT [facility] Culture tubercle/oth acid-fast bacilli any isol AFB CULTURE/SMEAR Microbiology Routine Cyst of gallbladder Liver cyst 07/30/2021 4:19 PM EDT [facility] ERCP, GENERAL ANESTHESIA ERCP, GENERAL ANESTHESIA Cyst of gallbladder Common bile duct stone [facility] EXPLORATION, COMMON BILE DUCT EXPLORATION, COMMON BILE DUCT Routine scheduled Cyst of gallbladder Liver cyst [facility] HEPATECTOMY, PARTIAL , LOBECTOMY HEPATECTOMY, PARTIAL, LOBECTOMY Routine scheduled Cyst of gallbladder Liver cyst [facility] LAPAROSCOPY, DIAGNOSTIC LAPAROSCOPY, DIAGNOSTIC Routine scheduled Cyst of gallbladder Liver cyst [facility] Patient Education Depression, Ad ult (DC) [facility] Behavioral Health DC Instructions [facility] Work Phone: Patient referral [facility] Work Phone: End: 06-16-2021 Surgical pathology procedure SURGICAL GI ANATOMIC PATHOLOGY Anatomic Pathology Routine One time for 1 Occurrences starting 06/16/2021 until 06/16/2021 [employer] Work Phone: Comment on above: One time for 1 Occurrences starting 06/04 until 06/16/2021 Surgical pathology procedure [employer] Work Phone: Comment on above: Release Upon Ordering for 1 Occurrences starting 07/30/2021, 1 completed VLDL cholesterol measurement [facility] Immunizations Immunization Date Immunization Notes Care Provider Zenaida recio 04-23-2021 Hemoglobin A1C Leigh Ann romo [employer] Work Phone: [facility] 03-22-2019 tetanus toxoid, reduced diphtheria toxoid, and acellular pertussis vaccine, adsorbed Leigh Ann Vales [employer] Work Phone: [facility] 01-29-2019 influenza, injectable, quadrivalent, preservative free Leigh Ann Teagan [employer] Work Phone: [facility] 01-29-2019 influenza virus vaccine, unspecified formulation Dennis Sarmiento MD Work Phone: [facility] NEGATED: Highlighted row has not occurred!05-15-2019 measles, mumps and rubella virus vaccine Stephanie Webster MD Work Phone: [facility] Comment on above: Deferred: Other - Im munity NEGATED: Highlighted row has not occurred!05-15-2019 tetanus toxoid, reduced diphtheria toxoid, and acellular pertussis vaccine, adsorbed Stephanie Webster MD Work Phone: [facility] Comment on above: Deferred: Other - Gi stevie in office this 03/12/2019 NEGATED: Highlighted row has not occurred!05-15-2019 varicella virus vaccine Stephanie Webster MD Work Phone: [facility] Comment on above: Deferred: Other - Im munity NEGATED: Highlighted row has not occurred!05-14-2019 measles, mumps and rubella virus vaccine Stephanie Webster MD Work Phone: [facility] Comment on above: Deferred: Other NEGATED: Highlighted row has not occurred!05-14-2019 varicella virus vaccine Stephanie Webster MD Work Phone: [facility] Comment on above: Deferred: Other Payers Date Payer Category Payer Self-pay [id number] 2022 Medicaid [id number] 2020 Medicaid [id number] 2016 Unknown [id number] 1978 Unknown [id number] 2.16.8 [id number] 1978 Unknown [id number] 2.16.84 [id number] 1978 Unknown [id number] 2.16.84 [id number] 1978 Unknown [id number] 2.16.84 [id number] 1978 Unknown [id number] 2.16.84 [id number] 1978 Unknown [id number] 2.16. [id number] 1978 Unknown [id number] 2.16. [id number] 1978 Unknown [id number] 2.16. [id number] 1978 Unknown [id number] 2.16.8 [id number] 1978 Unknown [id number] 2.16.8 [id number] 1959 Unknown [id number] 2.1 [id number] Unknown [id number] 2.16.8 [id number] Unknown [id number] 2.16.8 [id number] Social History Date Type Detail Facility Start: 03-06-1996 End: 07-20-2022 Tobacco smoking status DCIS Smokes tobacco daily [facility] Start: 03-06-1996 History of tobacco use Cigarette Smoker [facility] Start: 05-31-2020 End: 04-02-2021 Cigarettes smoked current (pack per day) - Reported 0.75 [facility] Start: 04-02-2021 End: 07-20-2022 Tobacco use and exposure Smokeless tobacco non-user [facility] Start: 06-11-2021 End: 07-21-2022 Alcohol intake Ex-drinker (finding) [facility] Start: 04-24-2021 End: 08-03-2021 History SDOH Food Worry 1 [facility] Start: 04-24-2021 End: 08-03-2021 History SDOH Transport Med 2 [facility] Start: 1980 Sex Assigned At Not on file [facility] Start: 05-15-2021 End: 06-14-2021 Exposure to SARS-CoV-2 (event) Not sure [facility] Start: 08-03-2021 History SDOH Financial 5 [facility] Start: 05-31-2020 End: 06-22-2022 [facility]igned At [facility] Start: 05-10-2022 End: 05-25-2022 Tobacco smoking status NHIS Smoker (finding) [facility] Start: 1980 Sex Assigned At Female [facility] Do you belong to any clubs or organizations such as anglican groups, unions, fraternal or athletic groups, or school groups? No [facility] Are you now , , , , never or living with a partner? [facility] How hard is it for y ou to pay for the very basics like food, housing, medical care, and heating Not hard at all [facility] Do you feel stress - tense, restless, nervous, or anxious, or unable to sleep at night because your mind is troubled all the time - these days [OSQ] Not at all [facility] The thought of nathani ng myself has occurred to me Never [facility] Start: 07-20-2022 Tobacco Comment using nicorette occasionally [facility] Start: 06-29-2022 Alcohol Comment former abuser [facility] Goals Date Patient Goal Desired Activity /State Functional Status Date Assessment Result Facility 05-15-2022 Functional status Patient at Baseline [facility] Work Phone: Mental Status Date Assessment Result Facility 05-15-2022 Cognitive function Cognitive Sta tus Patient at Baseline [facility] Work Phone: Clinical Notes 06-07-2021 to 06-28-2023 Stephanie Webster MD - 05/18/2023 3:30 PM EDT Note Date & Type Note Facility 06-28-2023 Note New patient here to establish care. She is referred from Josette Mendoza CNP for palpitations. She had normal heart cath in 2020 at [facility]. Wore 5 day Holter monitor last month. She sees vascular surgery at [facility] for PAD. PCP started her on metoprolol tartrate 25mg bid but patient did not start it. She denies chest pain. Gets SOB w/ exertion and palpitations daily. [facility] 05-18-2023 History of Present illness Narrative Images from the original note were not included. [facility] [address] [facility] [id number] Subjective: Patient ID: Shahla Thapa is a 43 y.o. female. Chief Complaint Chief Complaint Patient presents with Hospital Follow-up [facility] History of Present Illness: 43 F with L blue toe syndrome and claudication. She had duplex US and CTA of the abdomen and pelvis with runoff at the ED. I personal reviewed and interpreted the images of both studies. She has SFA occlusive disease bilaterally. 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 She is heavy smoker. I counseled her on smoking cessation for at least 4 minutes and she is willing to brad. Patient Active Problem List Diagnosis Chronic hypertension History of depression Mild intermittent asthma without complication Smoker Anxiety Obesity (BMI 35.0-39.9 without comorbidity) Abnormal EKG Abnormal stress test Gastroesophageal reflux disease without esophagitis History of biliary stent insertion Hx of abnormal cervical Pap smear Irritable bowel syndrome with both constipation and diarrhea Current Outpatient Medications: acetaminophen (TYLENOL) 500 mg tablet, Take 1 tablet (500 mg total) by mouth every 6 (six) hours as needed for pain., Disp: 30 tablet, Rfl: 0 albuterol (PROVENTIL HFA;VENTOLIN HFA) 90 mcg/actuation inhaler, Inhale 2 puffs every 6 (six) hours as needed for wheezing., Disp: , Rfl: gabapentin (NEURONTIN) 400 mg capsule, Take 1 capsule (400 mg total) by mouth 3 (three) times a day., Disp: , Rfl: ibuprofen (MOTRIN) 800 mg tablet, Take 1 tablet (800 mg total) by mouth every 6 (six) hours as needed for pain., Disp: 30 tablet, Rfl: 0 levomilnacipran (FETZIMA) 80 mg capsule,extended release 24 hr, Take 120 mg by mouth in the morning., Disp: , Rfl: mirtazapine (REMERON) 7.5 mg tablet, 1 tablet at bedtime Orally for 30 days, Disp: , Rfl: naltrexone (REVIA) 50 mg tablet, Take 1 tablet (50 mg total) by mouth in the morning., Disp: , Rfl: olmesartan-hydroCHLOROthiazide (BENICAR HCT) 20-12.5 mg per tablet, take 1 tablet by mouth once daily Oral for 90 days, Disp: , Rfl: omeprazole (PriLOSEC) 40 mg capsule, Take 1 capsule (40 mg total) by mouth in the morning., Disp: , Rfl: traZODone (DESYREL) 50 mg tablet, Take 4 tablets (200 mg total) by mouth nightly., Disp: , Rfl: VivitroL 380 mg suspension,extended rel recon, 1 injection Intramuscular once monthly for 30 days, Disp: , Rfl: aspirin 81 mg, 1 tablet Orally Once a day, Disp: , Rfl: OLANZapine (ZyPREXA) 10 mg tablet, Take 1 tablet (10 mg total) by mouth as needed. (Patient not taking: Reported on 05/18/2023), Disp: , Rfl: olmesartan (BENICAR) 20 mg tablet, Take 1 tablet (20 mg total) by mouth in the morning. (Patient not taking: Reported on 05/18/2023), Disp: , Rfl: Past Medical History: Diagnosis Date Alcoholic ([facility]) Anxiety Arthritis Asthma Bipolar disorder ([facility]) Depression Fractures GERD (gastroesophageal reflux disease) HPV (human papilloma virus) infection Hyperlipidemia Hypertension Migraine Obesity Postoperative wound infection 05/22/2019 Past Surgical History: Procedure Laterality Date APPLICATION WOUND VAC N/A 05/22/2019 Performed by Boni Ogden MD at [facility] N/A 05/13/2019 Performed by Boni Ogden MD at [facility] Cardiac catheterization 07/02/2020 Performed by Va Coy MD at [facility] CARDIAC CATH LABS CARPAL TUNNEL RELEASE Bilateral CHOLECYSTECTOMY Coronary angiogram only N/A 07/02/2020 Performed by Va Coy MD at [facility] CARDIAC CATH LABS DEBRIDEMENT WOUND N/A 05/22/2019 Performed by Boni Ogden MD at [facility] LAPAROSCOPIC SALPINGECTOMY Bilateral 07/20/2022 Performed by Sabina Leung DO at [facility] LIVER BIOPSY Family History Problem Relation Age of Onset Stroke Mother Cancer Mother lung, bladder Hypertension Mother Pneumonia Maternal Grandmother Alcohol abuse Maternal Grandfather Breast cancer Neg Hx Social History Socioeconomic History Marital status: Spouse name: Not on file Number of children: Not on file Years of education: Not on file Highest education level: Not on file Occupational History Not on file Tobacco Use Smoking status: Every Day Packs/day: 1.00 Years: 24.00 Additional pack years: 0.00 Total pack years: 24.00 Types: Cigarettes Start date: 1996 Smokeless tobacco: Never Tobacco comments: using nicorette occasionally Vaping Use Vaping Use: Former Substances: Nicotine, Flavoring Substance and Sexual Activity Alcohol use: Not Currently Comment: former abuser Drug use: Not Currently Types: Marijuana Comment: used marijuana years ago Sexual activity: Not Currently Partners: Male control/protection: None Other Topics Concern Caffeine Use Yes Social History Narrative Not on file Social Determinants of Health Financial Resource Strain: Low Risk (05/31/2020) Overall Financial Resource Strain (CARDIA) Difficulty of Paying Living Expenses: Not hard at all Food Insecurity: No Food Insecurity (06/22/2022) Hunger Screening Food Insecurity - Worry: Never True Food Insecurity - Inability: Never True Transportation Needs: No Transportation Needs (05/31/2020) PRAPARE - Transportation Lack of Transportation (Medical): No Lack of Transportation (Non-Medical): No Physical Activity: Inactive (05/31/2020) Exercise Vital Sign Days of Exercise per Week: 0 days Minutes of Exercise per Session: 0 min Stress: No Stress Concern Present (05/31/2020) [employer] - Occupational Stress Questionnaire Feeling of Stress : Not at all Social Connections: Socially Isolated (05/31/2020) Social Connection and Isolation Panel [NHANES] Frequency of Communication with Friends and Family: Never Frequency of Social Gatherings with Friends and Family: Never Attends Pentecostalism Services: Never Active Member of Clubs or Organizations: No Attends Club or Organization Meetings: Never Marital Status: Interpersonal Safety: Not At Risk (05/31/2020) Humiliation, Afraid, Rape, and Kick questionnaire Fear of Current or Ex-Partner: No Emotionally Abused: No Physically Abused: No Sexually Abused: No Housing Instability: Not on file Allergies Allergen Reactions Ciprofibrate Facial Swelling Penicillin G Facial Swelling Ciprofloxacin Flagyl [Metronidazole] Other (See Comments) Flu like s/s The following portions of the patient's history were reviewed and updated as appropriate: allergies, current medications, past family history, past medical history, past social history, past surgical history and problem list. Review of Systems: Review of Systems Constitutional: Negative. HENT: Negative. Respiratory: Negative. Cardiovascular: Negative. Gastrointestinal: Negative. Endocrine: Negative. Genitourinary: Negative. Musculoskeletal: Negative. Skin: Negative. Neurological: Negative. Hematological: Negative. All other systems reviewed and are negative. Objective: Vitals BP 130/70 (BP Site: Right Arm, BP Postition: Sitting, BP CUFF SIZE: L (13-17 inches)) Ht 167.6 cm (5' 6 ) Wt 100.2 kg (221 lb) BMI 35.67 kg/m Physical Exam Physical Exam Vitals reviewed. Constitutional: Appearance: Normal appearance. HENT: Head: Normocephalic and atraumatic. Eyes: Pupils: Pupils are equal, round, and reactive to light. Cardiovascular: Rate and Rhythm: Normal rate and regular rhythm. Pulmonary: Effort: Pulmonary effort is normal. Breath sounds: Normal breath sounds. Abdominal: General: Abdomen is flat. Musculoskeletal: General: Normal range of motion. Skin: General: Skin is warm. Findings: Bruising present. Neurological: General: No focal deficit present. Mental Status: She is alert and oriented to person, place, and time. Mental status is at baseline. Psychiatric: Mood and Affect: Mood normal. Behavior: Behavior normal. Thought Content: Thought content normal. Judgment: Judgment normal. Studies Reviewed CTA and duplex Assesment: Shahla was seen today for hospital follow-up. Diagnoses and all orders for this visit: Abnormal CT scan - Vas art doppler lwr bilat mult lev/PVR; Future Plan Plan: ASA/Plavix and Statin Supervised walking program Smoking cessation PVR Follow up in 2 weeks .Stephanie Webster MD, EMA Stephanie Webster MD documented in this encounter [facility] 04-15-2023 Evaluation note Encounter Date Diagnosis Assessment Notes Apr, Cellulitis of left toe (ICD-10 - L03.032) Discussed diagnosis with patient in detail. Instructed patient to take antibiotic as directed, complete entire course even if feeling better, take with food and plenty of water. Instructed close monitoring of area. Wound care as discussed. Encouraged use of warm Epsom salt soaks 4 times a day. Avoid use of ointments as it may prolong healing process. Follow up with PCP in the next 2-3 days. Immediate eval by ER if fever, chills, body aches, increase in swelling or redness, red streaking from wound, pain with ambulation, calf swelling, tenderness, redness warmth, SOB, difficulty breathing, chest pain, or any new or concerning symptoms. Patient verbalizes understanding and is agreeable to treatment plan Apr, Elevated blood pressure reading (ICD-10 - R03.0) Patient appears to be in mild amount of pain, which could be correlated to elevated blood pressure reading today in office. Encouraged use of at home readings. Immediate evaluation ER if she becomes symptomatic with chest pain, shortness of breath, difficulty breathing, or if any new or concerning symptoms arise. Patient verbalizes understanding and is agreeable with treatment plan [facility] Other 12-22-2023 Evaluation note* Encounter Date Diagnosis Assessment Notes Treatment Notes Treatment Clinical Notes Feb, Gastroesophageal reflux disease, esophagitis presence not specified (ICD-10 - K21.9) Controlled. Continue current care. Feb, Essential hypertensi on (ICD-10 - I10) BP controlled. After discussing risks, beneftis, possible SEs, and alternative treatment options, she opts to continue with olmesartan. She will call 911 for s/s of angioedema (discussed). Stop the medication and notify me immediately of any other SEs. Feb, Depression with anxiety (ICD-10 - F41.8) Controlled. F/u with psychiatry as scheduled. Immediate medical attention for any SI/HI or other change/worsening in the meantime. Feb, Vitamin D deficiency (ICD-10 - E55.9) Controlled on most recent labs. Continue current care. Feb, Raynaud's phenomenon without gangrene (ICD-10 - I73.00) Symptmos most consistent with Raynaud's. Recurrent CTS seemingly less likely. Given insturctions for supportive care. Notify me immediately of any change/worsening. Feb, Cigarette nicotine dependence with other nicotine-induced disorder (ICD-10 - F17.218) Smoking cessation strongly encouraged. [facility] 10-17-2023 Evaluation note* Encounter Date Diagnosis Assessment Notes Treatment Notes Treatment Clinical Notes Dec, Acute non-recurrent maxillary sinusitis (ICD-10 - J01.00) Patient declines/refusing testing today in office. Discussed diagnosis with patient. Will today for bacterial sinusitis based on physical exam and duration of symptoms. Take antibiotic as prescribed, complete entire course of therapy even if symptoms resolve. Reviewed allergies and recent antibiotic use with patient. Advised patient to use otc Coricidin HBP as needed, Rx of Flonase. Supportive care as directed, push fluids and rest, Tylenol and/or Motrin as directed for discomfort/fever, warm moist compress over sinuses several times a day, cool mist humidification, nasal saline spray as directed. Symptoms should improve in the next 3 days, if symptoms persist follow up with PCP. Immediate eval for warning s/sx as discussed. Patient verbalizes understanding and is agreeable to treatment plan [facility] 09-19-2023 Evaluation note* Encounter Date Diagnosis Assessment Notes Treatment Notes Treatment Clinical Notes Nov, Irregular menses (ICD-10 - N92.6) Patient states this isn't necessarily new, but perhaps a little more irregular as of late. Will send for screening labs, including an FSH level, prolactin, and TSH. Further recommendations pending. Nov, Weight gain (ICD-10 - R63.5) Suspect this is secondary to her olanzapine. I will send her for labs. We've had discussion regarding healthy eating and exercise. She may need to consider seeing a metal technician and discussing alternative medication options with her psychiatrist. Nov, Constipation, unspecified constipation type (ICD-10 - K59.00) Possible that this too is SEs to her olanzapine and/or Fetzima. I will give her colace to use for now. Work on fluid and fiber intake. Further recommendations pending her progress. Nov, Screening for metabolic disorder (ICD-10 - Z13.228) Nov, Screening for cardiovascular condition (ICD-10 - Z13.6) Nov, Screening for deficiency anemia (ICD-10 - Z13.0) Nov, Cigarette nicotine dependence with other nicotine-induced disorder (ICD-10 - F17.218) Smoking cessation strongly encouraged. [facility] 09-11-2023 Evaluation note* Encounter Date Diagnosis Assessment Notes Treatment Notes Treatment Clinical Notes Nov, Essential hypertension (ICD-10 - I10) [facility] 06-21-2023 Evaluation note* Encounter Date Diagnosis Assessment Notes Treatment Notes Treatment Clinical Notes Aug, Gastroesophageal reflux disease, esophagitis presence not specified (ICD-10 - K21.9) Controlled. Continue current care. Aug, Wellness examination (ICD-10 - Z01.89) Overall, patient doing well. Encouraged to work on healthy eating, exercise, and weight loss. I will have her get screening labs prior to her next visit. She is up to date on mammogram. No family history of colon CA. Smoking cessation strongly encouraged. Aug, Essential hypertensi on (ICD-10 - I10) BP now controlled. After discussing risks, beneftis, possible SEs, and alternative treatment options, she opts to continue with olmesartan. She will call 911 for s/s of angioedema (discussed). Stop the medication and notify me immediately of any other SEs. Aug, Depression with anxiety (ICD-10 - F41.8) Controlled. F/u with psychiatry as scheduled. Immediate medical attention for any SI/HI or other change/worsening in the meantime. Aug, Vitamin D deficiency (ICD-10 - E55.9) New labs prior to f/u. Adjustments pending. Aug, Exertional dyspnea (ICD-10 - R06.09) I inherited this patient with a diagnosis of asthma/COPD, but from what I can gather, she's had no recent PFTs. These were previously ordered but she never had them done, as her symptoms seemed to improve as her anxiety improved. I've still recommended PFTs but she declines for now. Immediate medical attention for change/worsening. Aug, Cigarette nicotine dependence with other nicotine-induced disorder (ICD-10 - F17.218) Smoking cessation strongly encouraged. [facility] Other 03-21-2023 Evaluation note* Encounter Date Diagnosis Assessment Notes Treatment Notes Treatment Clinical Notes May, Vitamin D deficiency (ICD-10 - E55.9) [facility] 03-15-2023 Evaluation note* Encounter Date Diagnosis Assessment Notes Treatment Notes Treatment Clinical Notes May, Essential hypertension (ICD-10 - I10) BP borderline today. She had several elevated readings in the hospital and has had high readings off and on at home. After discussing risks, beneftis, possible SEs, and alternative treatment options, she opts to start olmesartan. She will call 911 for s/s of angioedema (discussed). Stop the medication and notify me immediately of any other SEs. May, Depression with anxiety (ICD-10 - F41.8) Hospital discharge documentation reviewed in full. Patient is improving and feels well at this time. She denies any SI/HI but agrees to again seek immediate medical attention in the event that this changes or for any other change/worsening in her condition. She reports no alcohol consumption since leaving the hospital -- should she find herself struggling with alcohol, she agrees to let me know right away. May, Exertional dyspnea (ICD-10 - R06.09) I inherited this patient with a diagnosis of asthma/COPD, but from what I can gather, she's had no recent PFTs. Will update those now. May recommend she get a nebulizer pending our findings. Immediate medical attention for any CP, worsening dyspnea, or other change/worsening in her condition in the meantime. Smoking cessation strongly encouraged. 15 Mar, 2023 Cigarette nicotine dependence with other nicotine-induced disorder (ICD-10 - F17.218) Smoking cessation strongly encouraged. [facility] 03-11-2023 Progress note Author Geo Loomis [facility] May 14, 2022 11:17am Note Date/Time May 14, 2022 11: 17am [facility] [address] [place] [address] Psychiatry Progress Note Signed Patient: Shahla Ruelas MR#: [id number] : 1980 Acct:[id number] Age/Sex: 42 / F Adm Date: 3 Loc: Room: [address] [place] [address] Type : ADM IN Attending Dr: Geo Loomis MD Copies to: ~ Date of Service: 05/14/2022 Subjective Subjective Narrative: Ms. Ruelas reported that she is feeling a bit better. She reported that her mood has been more stable. She does report having some anxiety this morning. She reported taking Zyprexa which has been helping her. She denied any current suicidal ideation at this time. Mental Status Exam: Appearance: grossly normal Mental Status: mental status grossly normal Mood: Appropriate mood Affect: Improving affect Speech and Movement: speech and movement normal and speech clear Attitude: cooperative Thought Process: normal Thought Content: Endorsed auditory hallucination yesterday afternoon. Denies visual hallucination, homicidality, or suicidality Insight: fair Judgment: fair Exam Physical Exam Vital Signs: Temp Pulse Resp BP Pulse Ox O2 Del Method 97.2 F L 87 16 160/89 H 97 Room Air 05/14/22 07:30 05/14/22 07:30 05/13/22 15:05 05/14/22 11:02 05/14/22 07:30 05/14/22 07:30 Assessment/Plan Assessment/Plan (1) MDD (major depressive disorder), recurrent episode: Code(s): F33.9 - Major depressive disorder, recurrent, unspecified Status: Acute Plan Patient doing better at this time. Anticipate discharge tomorrow We will monitor blood pressure and headaches today to ensure no side effects to medication Continue Fetzima 40 mg and Neurontin 300 mg 3 times a day Patient history of multiple medication trials Continue to monitor mental status Encourage group participation and medication compliance Risk benefits alternatives explained Documented By: Geo Loomis MD 05/14/221114 Signed By: <Electronically signed by Geo Loomis MD> 05/14/227 [facility] Work Phone: 1(910) 136-275003-10-2023 Progress note Author Geo Loomis [facility] May 13, 2022 12:04pm Note Date/Time May 13, 2022 10: 47am [facility] [address] [place] [address] Psychiatry Progress Note Signed Patient: Shahla Ruelas MR#: [id number] : 1980 Acct:[id number] Age/Sex: 42 / F Adm Date: 3 Loc: Room: [address] [place] [address] Type : ADM IN Attending Dr: Geo Loomis MD Copies to: ~ Date of Service: 05/13/2022 Subjective Subjective Narrative: Ms. Ruelas is a 42 year old female who presented due to concern for depressionand suicidal ideation. Patient claims that her depression feels the same as yesterday at 2 out of 10, however she reports that anxiety has increased as compared to yesterday to 6 out of 10. Patient describes her mood as better and normal, however she does endorse increased nervousness. Patient reports auditoryhallucination around 2 PM yesterday when she heard her name being yelled. Patient denies any visual hallucination. Denies suicidal ideation or homicidal ideation. Patient reports that she slept well last night at 7 hours. Denies lack of interest in activities, lack of energy, or lack of appetite. Patient does endorse a small amount of guilt and difficulty focusing. Patient is takingmedications without significant side effect. Patient is going to group participation. Mental Status Exam: Appearance: grossly normal Mental Status: mental status grossly normal Mood: Appropriate mood Affect: Broad affect Speech and Movement: speech and movement normal and speech clear Attitude: cooperative Thought Process: normal Thought Content: Endorsed auditory hallucination yesterday afternoon. Denies visual hallucination, homicidality, or suicidality Insight: fair Judgment: fair Patient was personally seen by me on the day of the encounter. I reviewed the history and performed the ahmadi elements of the physical examination. I formulated the plan of care and confirmed this with the medical student as notedbelow. Patient reported feeling better at this time. Reported some auditory hallucinations that she stated that she may have misinterpreted. Overall symptoms have been improving and denied any side effects current medications. Exam Physical Exam Vital Signs: Temp Pulse Resp BP Pulse Ox O2 Del Method 97.8 F 84 16 151/86 H 95 Room Air 05/13/22 07:30 05/13/22 07:30 05/13/22 07:30 05/13/22 07:30 05/13/22 07:30 05/13/22 07:30 Assessment/Plan Assessment/Plan (1) MDD (major depressive disorder), recurrent episode: Code(s): F33.9 - Major depressive disorder, recurrent, unspecified Status: Acute Plan Patient presenting due to concern for depression and suicidal ideation Symptoms overall have been improving, anticipate discharge over the weekend Discontinue Prozac and increase Fetzima to 40 mg Patient history of multiple medication trials Continue to monitor mental status Encourage group participation and medication compliance Risk benefits alternatives explained Documented By: Geo Loomis MD 05/13/22 1042 Signed By: <Electronically signed by Geo Loomis MD> 05/13/22 1204 [facility] Work Phone: 1([phone]) 203-751503-09-2023 Progress note Author Geo Loomis [facility] May 12, 2022 2:13pm Note Date/Time May 12, 2022 9:57 am [facility] [address] [place] [address] Psychiatry Progress Note Signed Patient: Shahla Ruelas MR#: [id number] : 1980 Acct:[id number] Age/Sex: 42 / F Adm Date: 3 Loc: Room: [address] [place] [address] Type : ADM IN Attending Dr: Geo Loomis MD Copies to: ~ Date of Service: 05/12/2022 Subjective Subjective Narrative: Ms. Ruelas is a 42 year old female who presented due to concern for depressionand suicidal ideation. Patient claims she is feeling better today with no feelings of depression, however she has feelings of anxiety that she rates 4?5 out of 10. 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 Patient claims that she has less hopelessness than yesterday. Patient says that her appetite is increasing compared to yesterday and that she has slept better with 9 hours of sleep last night. Patient denies any suicidal ideation, hallucinations, or homicidal ideations. Patient is taking her medications without significant side effects. Patient is attending group therapy. Mental Status Exam: Appearance: grossly normal Mental Status: mental status grossly normal Mood: Appropriate mood Affect: Broad affect Speech and Movement: speech and movement normal and speech clear Attitude: cooperative Thought Process: normal Thought Content: Denied hallucinations, no homicidality, reported suicidality Insight: fair Judgment: fair Patient was personally seen by me on the day of the encounter. I reviewed the history and performed the ahmadi elements of the physical examination. I formulated the plan of care and confirmed this with the medical student as notedbelow. Patient reported that mood has been improving. She denied feeling suicidal. Hopelessness has improved. She is tolerating her current medications and deniedany side effects. Exam Physical Exam Vital Signs: Temp Pulse Resp BP Pulse Ox O2 Del Method 97.9 F 69 16 122/75 94 L Room Air 05/12/22 07:30 05/12/22 07:30 05/12/22 07:30 05/12/22 07:30 05/12/22 07:30 05/12/22 07:30 Assessment/Plan Assessment/Plan (1) MDD (major depressive disorder), recurrent episode: Code(s): F33.9 - Major depressive disorder, recurrent, unspecified Status: Acute Plan Patient presenting due to concern for depression and suicidal ideation. Depression and suicidal ideation have been improving We will taper Prozac and continue Fetzima 20 mg Patient history of multiple medication trials Continue to monitor mental status Encourage group participation and medication compliance Risk benefits alternatives explained Documented By: Geo Loomis MD 05/12/22 0900 Signed By: <Electronically signed by Geo Loomis MD> 05/12/22 3893 [facility] Work Phone: [phone]) 551-978403-08-2023 History and physical note Author Geo Loomis [facility] May 11, 2022 10:39am Note Date/Time May 11, 2022 10:3 9am [facility] [address] [place] [address] Psychiatry H&P Signed Patient: Shahla Ruelas MR#: [id number] : 1980 Acct:[id number] Age/Sex: 42 / F Adm Date: 3 Loc: 1S Room: 6E3462-8 Type: ADM IN Attending Dr: Geo Loomis MD Copies to: Geo Loomis MD Tamara Calero, DO~ Date of Service: 05/11/2022 HPI History of Present Illness History of present illness: Ms. Ruelas is a 42 year old female who presented due to concern for depressionand suicidal ideation. Upon assessment, patient reported that she has been feeling depressed. She stated that she had thoughts of hurting herself as well. She reported that things have been worsening over the past couple days. She stated that she cannot identify any trigger but does report that she recently stopped prednisonefor cough. She reported sleep issues, decreased appetite, feelings of hopelessness and suicidal thoughts. She denied any recent hallucinations. Past psych history: [place], major depressive disorder Past hospitalizations: Denies Past suicide attempts: Reported self injures behavior roughly 15 years ago Family psych history: Reported family history in her father biological Previous medications: Abilify, Rexulti, Vraylar, Latuda, Wellbutrin, Zoloft, Pristiq, Prozac Alcohol and drug use: Reported drinking 6 drinks a day Living: With Employment: Unemployed and trying to earn disability Review of symptoms: Constitutional: Denies chills and Denies fever(s) Eyes: Denies change in vision ENT: Denies abnormal hearing Cardiovascular: Denies chest pain Respiratory: Denies chest congestion and Denies cough Gastrointestinal: Denies change in bowel habits Genitourinary: Denies dysuria Musculoskeletal: Denies atrophy and Denies myalgias Integumentary/Breasts: Denies dry skin Neurologic: Denies abnormal gait and Denies abnormal movements Psychiatric: Reports depression and suicidal ideation Physical exam: Const: cooperative Nutritional Appearance: average body habitus Orientation: alert, awake and oriented x3 HEENT: Head normal to inspection, hearing grossly normal bilaterally, external nose normal, face symmetric Eyes: appearance normal, both eyes and all related structures, sclerae normal Neck: normal visual inspection and full ROM Resp: normal respiratory effort, able to speak in complete sentences and symmetric chest movement Cardio: regular rate GI: normal to inspection and non-distended : deferred Skin: no rashes or lesions noted Neuro: CNII: Visual gerardo intact, CNIII,IV,: EOM intact, no nystagmus. Pupilsequal, round, reactive to light and accommodation, CNV: Sensation intact to light touch, CNVII: Raises eyebrows, smile/frown, puff out cheeks symmetrically, CNVIII: Hearing intact bilaterally, CNIX,X: Voice normal, soft palate elevation normal, symmetrical, CNXI: Shoulder shrug strong, equal bilaterally, CNXII: Tongue protrusion midline, movement symmetrical. Extrem: normal to inspection and full ROM Mental Status Exam: Appearance: grossly normal Mental Status: mental status grossly normal Mood: dysthymic mood Affect: dysphoric affect Speech and Movement: speech and movement normal and speech clear Attitude: cooperative Thought Process: normal Thought Content: Denied hallucinations, no homicidality, reported suicidality Insight: fair Judgment: fair PMFSH Vaccinated for COVID-19?: No Medical History (Updated 05/11/22 @ 10:38 by Geo Loomis MD) Anxiety Depression GERD (gastroesophageal reflux disease) HTN (hypertension) Surgical History History of cholecystectomy Social History Smoking Status: Current every day smoker Tobacco Type: cigarettes Substance Use Type: Alcohol Substance Abuse Comment: 6 beers/day for months now. Meds Medications and Allergies Allergies metronidazole [From Flagyl] Allergy (Intermediate, Verified 05/10/22 21:12) Unknown Reaction Penicillins Allergy (Verified 05/10/22 21:12) Swelling ciprofloxacin [From Cipro] Adverse Reaction (Verified 05/10/22 21:12) Fatigued Quinolones Adverse Reaction (Verified 05/10/22 21:12) Fatigued Home Medications albuterol sulfate 90 mcg/actuation aerosol inhaler 1 puff inhalation Q4H PRN Shortness Of Breath 05/11/22 [History Confirmed 05/11/22] fluoxetine 40 mg capsule 80 mg PO DAILY 05/11/22 [History Confirmed 05/11/22] omeprazole 40 mg capsule,delayed release 40 mg PO DAILY 05/11/22 [History Confirmed 05/11/22] trazodone 100 mg tablet 200 mg PO HS 05/11/22 [History Confirmed 05/11/22] Exam Physical Exam Vital Signs: Temp Pulse Resp BP Pulse Ox O2 Del Method 98.4 F 70 16 111/67 94 L Room Air 05/11/22 00:58 05/11/22 07:30 05/11/22 07:30 05/11/22 07:30 05/11/22 07:30 05/11/22 07:30 Results Labs 05/10/22 21:28 05/10/22 21:28 Psychiatry Labs: 05/10/22 05/10/22 05/10/22 21:21 21:28 21:28 RBC 4.86 Hgb 14.1 Hct 42.9 MCV 88.3 MCH 29.1 MCHC 32.9 RDW 15.1 Plt Count 267 MPV 6.8 Sodium 136 Potassium 4.7 Chloride 103 Carbon Dioxide 28.1 Anion Gap 9.6 BUN 11 Creatinine 0.81 Calcium 9.5 Total Bilirubin 0.9 AST 17 ALT 17 Alkaline Phosphatase 63 Total Protein 6.9 Albumin 4.0 Urine Color Dark yellow A Urine Appearance Cloudy A Urine pH 6.0 Ur Specific Milner 1.028 Urine Protein 30 H Urine Glucose (UA) Normal Urine Ketones Trace H Urine Occult Blood 2+ H Urine Nitrite Negative Ur Leukocyte Esterase 3+ H Urine RBC 20-49 H Urine WBC 20-49 H Microbiology Microbiology: Microbiology - Results from entire visit 05/10/22 21:21 Urine - Clean-Voided Midstream Urine Culture - Preliminary No Growth 1 Day Assessment/Plan (1) MDD (major depressive disorder), recurrent episode: Code(s): F33.9 - Major depressive disorder, recurrent, unspecified Status: Acute Plan Patient presenting due to concern for depression and suicidal ideation We will taper Prozac and use Fetzima 20 mg Patient history of multiple medication trials Continue to monitor mental status Encourage group participation and medication compliance Risk benefits alternatives explained Documented By: Geo Loomis MD 05/11/22 1036 Signed By: <Electronically signed by Geo Loomis MD> 05/11/22 103 [facility] Work Phone: 1(423) 910-798501-10-2023 Evaluation note* Encounter Date Diagnosis Assessment Notes Treatment Notes Treatment Clinical Notes Mar, COVID-19 (ICD-10 - U07.1) Patient is outside of the therapeutic window for Paxlovid. Finish steroids and use albuterol inhaler as directed from her ER visit. Continue with supportive care. We discussed s/s of superimposed bacterial infections -- she will call immediately for any of those s/s, at which point we'd consider additional treatment. Call at any time with questions/concerns. [facility] Other 12-12-2022 History of Present illness Narrative* Dennis Dunn MD - 02/14/2022 12:03 PM EST This encounter was opened in error. Patient was a No-Show. Please disregard. Called, directly to busy signal. Dennis Sarmiento MD documented in this [id number] Evaluation note* Encounter Date Diagnosis Assessment Notes Treatment Notes Treatment Clinical Notes Nov, Mild intermittent asthma without complication (ICD-10 - J45.20) [facility] Other 06-30-2022 History of Present illness Narrative* Nicole Garcia RN - 09/02/2021 12:42 PM EDT TUMOR BOARD NOTE Diagnosis: Liver Cyst General Information Patient Name: Shahla Ruelas Date of /Age: 11 1980 41 year old Clinical Summary Care Team Background Information Medical History: Review of patient's past medical history indicates: Anxiety Depression GERD (gastroesophageal reflux disease) HTN (hypertension) Family History: Cancer-related family history is not on file. Tobacco Use: reports that she has been smoking cigarettes. She has a 18.75 pack-year smoking history. She has never used smokeless tobacco. ETOH Use: reports previous alcohol use. Background Information Cancer Diagnosis Information Pathology and Staging Information: SPECIMEN FOR SURGICAL PATH: [id number] Order: [id number] Collected 07/30/2021 15:54 Status: Final result Visible to patient: Yes (not seen) Dx: Liver cyst; Cyst of gallbladder 0 Result Notes Component Case Report Surgical Pathology Report Case: [id number] Authorizing Provider: Dennis Sarmiento MD Collected: 07/30/2021 1554 Ordering Location: [facility] Main OR Received: 08/03/2021 1030 Pathologist: Marc Ricketts MD Specimens: A) - Liver, Falciform B) - Liver, Biliary cystadenoma C) - Liver, Right hepatic duct polyp Final Diagnosis A. Liver, Falciform Falciform ligament and mature adipose tissue, no evidence of neoplasm. B. 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 C. 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 Liver parenchyma with steatosis, involving approximately 30 percent of hepatocytes. . I certify that I personally conducted the diagnostic evaluation of the above specimen(s) and have rendered the final diagnosis(es). at 0846 Gross Description A. Requisitioned as liver, falciform . The specimen is received fixed in one container, labeled with the patient's name and medical recordnumber. Marked as liver, falciform . The specimen consists of 18.5 x 4.4 x 1.8 cm yellow-barreto fibroadipose tissue. Serially section reveals yellow-barreto lobular smooth and glistening cut surface remarkable for 5.2 cm white-barreto fibrotic tubal tissue consistent with falciform ligament with no identified lymph nodes or masses grossly. Sections: Electroplating Worker A1. Fibrotic tissue (X) B. Requisitioned as liver, biliary cystadenoma . The specimen is received fixed in one container, labeled with the patient's name and medical recordnumber. Marked as liver, biliary cystadenoma, . The specimen consists of a 8.5 x 7.5 x 2.9 cm previously opened cystic lesion with red-barreto and granular outer surface. The inner surface is red-barreto and brown granular surface, remarkable for multiple white-barreto and yellow fibrotic areas and a 4.5 x 3 cm polypoid lesion elevated by 1.2 cm. The outer margins appear free of tumor, it is inked green. Sections: Electroplating Worker B1. Cystic lesion, fibrotic area (X) B2-B6. Cystic lesion, polypoid lesion( 1 each) C. Requisitioned as liver, right hepatic duct polyp . The specimen is received fixedA4. Umbilical cord (2) in one container, labeled with the patient's name and medical record number. Marked as liver, right hepatic duct polyp . The specimen consists ofa 1.2 x 0.9 x 0.5 cm red-barreto and white cystic nodule. The outer surface was inked green. Loose in the container a 1 x 0.8 x 0.5 cm red-barreto and yellow fibroadipose tissue Sections: In toto C1. Cystic nodule (X) C2. Fibroadipose tissue (X) Kortney Ivey M.D Clinical Information Resulting [place] [facility] [place] Collected: 07/30/21 15:54 Last Resulted: 08/05/21 08:46 Order Details View Encounter Lab and Collection Details Routing Result History Scans on Order [id number] Document on 08/05/2021 8:46 AM by Marc Ricketts, Treatment Recommendations and NCCN: Plan no surgical intervention needed at this time. Follow up in 02/[address] Sarmiento The above recommendations were based on NCCN guidelines, as well as consideration of current national standards and review of the literature. Nicole Garcia RN documented in this [id number] [facility] - History and Physical ? Patient Name: Shahla Ruelas Patient Referring Provider: No referring provider defined for this encounter. ??? HPI 41 yo female here for post-op visit. Pt had biliary cyst sp lap polina and underwent cystectomy and yovani-en-y hepaticoJ w/Dr. Sarmiento on 07/30/21. Discharged home on GIS diet w/drain in place. Drain removed on 08/10/21 visit. Here for staple removal. Pt has ruq pain when eating broccoli and cheese soup. ? Past Medical History ??? Medical History Past Medical History: Diagnosis Date * Anxiety ??? * Depression ??? * GERD (gastroesophageal reflux disease) ??? * HTN (hypertension) ? Past Surgical History ??? Surgical History Past Surgical History: Procedure Laterality Date * CHOLECYSTECTOMY ? * ENDOSCOPIC ULTRASOUND, UPPER N/A 04/05/2021 ??? Procedure: ENDOSCOPIC ULTRASOUND, UPPER, GENERAL ANESTHESIA; Surgeon: Leobardo Barry MD; Location: [facility]; Service: Gastroenterology * ERCP N/A 04/08/2021 ??? Procedure: ERCP, GENERAL ANESTHESIA; Surgeon: Leobardo Barry MD; Location: [facility]; Service: Gastroenterology * ERCP N/A 06/16/2021 ??? Procedure: ERCP, GENERAL ANESTHESIA; Surgeon: Leobardo Barry MD; Location: [facility]; Service: Gastroenterology * EXPLORATION, COMMON BILE DUCT N/A 07/30/2021 ??? Procedure: Enucleation biliary cyst adenoma; exploratory laparatomy, lysis of adhesions, common bile duct exploration, biliary endoscopy, cholangiogram, yovani-en-y hepaticojejunostomyx2, vascularized opmental pledget.; Surgeon: Dennis Sarmiento MD; Location: [facility]; Service: General * LAPAROSCOPY, DIAGNOSTIC N/A 07/30/2021 ??? Procedure: LAPAROSCOPY, DIAGNOSTIC; Surgeon: Dennis Sarmiento MD; Location: [facility]; Service: General ? Family History ??? Family History Family History Problem Relation Age of Onset * Hypertension Father ? Review Of Symptoms ??? General: no generalized weakness Eyes: no changes in vision Ears/Nose/Throat: no hoarseness/pain Respiratory: no sob/cough Cardiovascular: no chest pain Gastrointestinal: no n/v/d Skin: no itching/bruising Neurologic: no deficits Psychiatric: normal affect Hematologic/Lymphatic/Immunologic: no bleeding/easy bruising ? Current Medications: ??? Current Outpatient Medications Medication Sig Dispense Refill * acetaminophen (TYLENOL) 325 mg tablet Take 2 Tablets by mouth every 6 (six) hours. 30 Tablet 0 * methocarbamol (ROBAXIN) 750 MG tablet Take 1 Tablet by mouth 4 times daily as needed for up to 7 days. 28 Tablet 0 * oxyCODONE 5 MG immediate release tablet Take 1 Tablet by mouth every 8 hours as needed for up to 7 days. 20 Tablet 0 * naloxone 4 mg/0.1 mL nasal liquid Use 1 [place] in one nostril (alternate sides) as needed for Drug Overdose for up to 1 dose. Every 2-3 mins. until help arrives. 1 Each 1 * clonazePAM (KlonoPIN) 0.5 MG tablet take 1 tablet by mouth once daily if needed for anxiety ? * fluoxetine (PROZAC) 20 MG capsule Take 20 mg by mouth daily. ? * brexpiprazole (REXULTI) 2 MG TABS tablet Take by mouth daily. ? * trazodone (DESYREL) 100 MG tablet Take 200 mg by mouth at bedtime. ? * omeprazole (PRILOSEC) 40 MG capsule Take 40 mg by mouth daily. ? * losartan (COZAAR) 50 MG tablet Take 50 mg by mouth daily. ? No current facility-administered medications for this visit. ? Labs: ??? CBC (last 3 years, up to 5 values) (Last 5 results in the past 3 years) ??? WBC RBC Hgb Hct MCV RDW Plt ??? 08/03/21 0050 6.5 ??? 2.97 ??? 8.6 ??? 24.9 ??? 84 ??? 15.4 ??? 245 ? 08/02/21 0012 7.8 ??? 2.87 ??? 8.0 ??? 24.0 ??? 84 ??? 15.5 ??? 186 ? 08/01/21 0007 7.6 ??? 2.66 ??? 7.6 ??? 22.3 ??? 84 ??? 15.6 ??? 163 ? 07/31/21 0248 9.5 ??? 3.45 ??? 9.9 ??? 28.7 ??? 83 ??? 15.1 ??? 207 ? 07/31/21 0043 ? 9.9 ??? 30.6 ? Basic Metabolic Panel (Last 5 results in the past 3 years) ??? Na K Cl CO2 Gap Glu BUN Cr Ca ??? 08/03/21 0050 138 ??? 3.8 ??? 103 ??? 25 ??? 14 ??? 88 ??? 3 ??? 0.65 ??? 8.7 ? 08/02/21 0012 138 ??? 4.2 ??? 106 ??? 25 ??? 11 ??? 85 ??? 4 ??? 0.66 ??? 8.4 ? 08/01/21 0007 135 ??? 4.5 ??? 105 ??? 24 ??? 11 ??? 101 ??? 6 ??? 0.63 ??? 8.1 ? 07/31/21 0248 135 ??? 4.6 ??? 106 ??? 22 ??? 12 ??? 129 ??? 10 ??? 0.85 ??? 8.9 ? 07/31/21 0043 138 ? LFT's (last 3 years, up to 5 values) (Last 5 results in the past 3 years) ??? T Prot (more content not included)...[facility] [id number] Evaluation note* Encounter Date Diagnosis Assessment Notes Treatment Notes Treatment Clinical Notes Aug, HTN (hypertension) (ICD-10 - I10) BP running much lower with her recent weight loss following surgery. I will hold on having her restart her BP medication. She will monitor at home and bring cuff/logs to f/u with recommendations pending. Aug, Wellness examination (ICD-10 - Z00.00) Overall, patient doing well. I will update her labs next time I see her. I've encouraged her to reconsider a mammogram (declining for now). Chronic care as detailed below. Aug, LVH (left ventricula r hypertrophy) (ICD-10 - I51.7) Found during her workup. She is due for repeat Echo but we will wait until her next visit with me, as she is still recovering from her recent surgery to remove cysts from the abdomen. Aug, Depression with anxiety (ICD-10 - F41.8) Controlled. F/u with psych as scheduled. Immediate medical attention for any SI/HI or other change/worsening. Aug, Gastroesophageal reflux disease, esophagitis presence not specified (ICD-10 - K21.9) Controlled. Continue current care. Aug, Vitamin D deficiency (ICD-10 - E55.9) Labs from 02/2021 reviewed. Will have her restart supplementing with Vit D. Aug, Iron deficiency (ICD-10 - E61.1) Aug, Obstructive sleep apnea (adult) (pediatric) (ICD-10 - G47.33) Patient is not treating her SHARI, but she has lost significant weight. Will need to consider f/u with sleep medicine once she is fully healed from her surgery -- will discuss when I see her back in 6 months. [place] Other 06-13-2022 History of Present illness Narrative* Dennis Dunn MD - 08/16/2021 1:09 PM EDT Phone numbers Preferred Documentation: Mode: Telephone Patient Patient Work Phone: Patient Cell Preferred phone: [phone] Consent: I confirmed patient understanding of the risks and benefits of telehealth visits and obtained consent to proceed with the telehealth visit. Location of Patient: Home of patient Surgery Follow Up Feeling well since surgery. Still hurting but she is starting to feel better. [facility] week for staple removal. SPECIMEN FOR SURGICAL PATH: [id number] Order: [id number] Collected 07/30/2021 15:54 Status: Final result Visible to patient: Yes (not seen) Dx: Liver cyst; Cyst of gallbladder 0 Result Notes Component Case Report Surgical Pathology Report Case: [id number] Authorizing Provider: Dennis Sarmiento MD Collected: 07/30/2021 1554 Ordering Location: [facility] Main OR Received: 08/03/2021 1030 Pathologist: Marc Ricketts MD Specimens: A) - Liver, Falciform B) - Liver, Biliary cystadenoma C) - Liver, Right hepatic duct polyp Final Diagnosis A. Liver, Falciform Falciform ligament and mature adipose tissue, no evidence of neoplasm. B. 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 C. 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 Liver parenchyma with steatosis, involving approximately 30 percent of hepatocytes. . I certify that I personally conducted the diagnostic evaluation of the above specimen(s) and have rendered the final diagnosis(es). at 0846 Gross Description A. Requisitioned as liver, falciform . The specimen is received fixed in one container, labeled with the patient's name and medical recordnumber. Marked as liver, falciform . The specimen consists of 18.5 x 4.4 x 1.8 cm yellow-barreto fibroadipose tissue. Serially section reveals yellow-barreto lobular smooth and glistening cut surface remarkable for 5.2 cm white-barreto fibrotic tubal tissue consistent with falciform ligament with no identified lymph nodes or masses grossly. Sections: Electroplating Worker A1. Fibrotic tissue (X) B. Requisitioned as liver, biliary cystadenoma . The specimen is received fixed in one container, labeled with the patient's name and medical recordnumber. Marked as liver, biliary cystadenoma, . The specimen consists of a 8.5 x 7.5 x 2.9 cm previously opened cystic lesion with red-barreto and granular outer surface. The inner surface is red-barreto and brown granular surface, remarkable for multiple white-barreto and yellow fibrotic areas and a 4.5 x 3 cm polypoid lesion elevated by 1.2 cm. The outer margins appear free of tumor, it is inked green. Sections: Electroplating Worker B1. Cystic lesion, fibrotic area (X) B2-B6. Cystic lesion, polypoid lesion( 1 each) C. Requisitioned as liver, right hepatic duct polyp . The specimen is received fixedA4. Umbilical cord (2) in one container, labeled with the patient's name and medical record number. Marked as liver, right hepatic duct polyp . The specimen consists ofa 1.2 x 0.9 x 0.5 cm red-barreto and white cystic nodule. The outer surface was inked green. Loose in the container a 1 x 0.8 x 0.5 cm red-barreto and yellow fibroadipose tissue Sections: In toto C1. Cystic nodule (X) C2. 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 Follow up in 6 months with a televisit in person if needed. Dennis Sarmiento MD, FACS documented in this [id number] History of Present illness Narrative* Josephine Osborn MD - 08/10/2021 3:25 PM EDT Images from the original note were not included. [facility] New Patient - History and Physical Patient Name: Shahla Ruelas Patient Referring Provider: No referring provider defined for this encounter. HPI 41 yo female here for post-op visit. Pt had biliary cyst sp lap polina and underwent cystectomy and yovani-en-y hepaticoJ w/Dr. Sarmiento on 07/30/21. Discharged home on GIS diet w/drain in place. Pt doing well, eating and drinking. Drain draining less than 10cc serous fluid daily. Past Medical History Past Medical History: Diagnosis Date Anxiety Depression GERD (gastroesophageal reflux disease) HTN (hypertension) Past Surgical History Past Surgical History: Procedure Laterality Date CHOLECYSTECTOMY ENDOSCOPIC ULTRASOUND, UPPER N/A 04/05/2021 Procedure: ENDOSCOPIC ULTRASOUND, UPPER, GENERAL ANESTHESIA; Surgeon: Leobardo Barry MD; Location: [facility]; Service: Gastroenterology ERCP N/A 04/08/2021 Procedure: ERCP, GENERAL ANESTHESIA; Surgeon: Leobardo Barry MD; Location: [facility]; Service: Gastroenterology ERCP N/A 06/16/2021 Procedure: ERCP, GENERAL ANESTHESIA; Surgeon: Leobardo Barry MD; Location: [facility]; Service: Gastroenterology EXPLORATION, COMMON BILE DUCT N/A 07/30/2021 Procedure: Enucleation biliary cyst adenoma; exploratory laparatomy, lysis of adhesions, common bile duct exploration, biliary endoscopy, cholangiogram, yovani-en-y hepaticojejunostomyx2, vascularized opmental pledget.; Surgeon: Dennis Dunn MD; Location: [facility]; Service: General LAPAROSCOPY, DIAGNOSTIC N/A 07/30/2021 Procedure: LAPAROSCOPY, DIAGNOSTIC; Surgeon: Dennis Sarmiento MD; Location: [facility]; Service: General Family History Family History Problem Relation Age of Onset Hypertension Father Review Of Symptoms General: no generalized weakness Eyes: no changes in vision Ears/Nose/Throat: no hoarseness/pain Respiratory: no sob/cough Cardiovascular: no chest pain Gastrointestinal: no n/v/d Skin: no itching/bruising Neurologic: no deficits Psychiatric: normal affect Hematologic/Lymphatic/Immunologic: no bleeding/easy bruising Current Medications: Current Outpatient Medications Medication Sig Dispense Refill acetaminophen (TYLENOL) 325 mg tablet Take 2 Tablets by mouth every 6 (six) hours. 30 Tablet 0 methocarbamol (ROBAXIN) 750 MG tablet Take 1 Tablet by mouth 4 times daily as needed for up to 7 days. 28 Tablet 0 oxyCODONE 5 MG immediate release tablet Take 1 Tablet by mouth every 8 hours as needed for up to 7 days. 20 Tablet 0 naloxone 4 mg/0.1 mL nasal liquid Use 1 [place] in one nostril (alternate sides) as needed for Drug Overdose for up to 1 dose. Every 2-3 mins. until help arrives. 1 Each 1 clonazePAM (KlonoPIN) 0.5 MG tablet take 1 tablet by mouth once daily if needed for anxiety fluoxetine (PROZAC) 20 MG capsule Take 20 mg by mouth daily. brexpiprazole (REXULTI) 2 MG TABS tablet Take by mouth daily. trazodone (DESYREL) 100 MG tablet Take 200 mg by mouth at bedtime. omeprazole (PRILOSEC) 40 MG capsule Take 40 mg by mouth daily. losartan (COZAAR) 50 MG tablet Take 50 mg by mouth daily. No current facility-administered medications for this visit. Labs: CBC (last 3 years, up to 5 values) (Last 5 results in the past 3 years) WBC RBC Hgb Hct MCV RDW Plt 08/03/2149 6.5 2.97 8.6 24.9 84 15.4 245 08/02/21 0012 7.8 2.87 8.0 24.0 84 15.5 186 08/01/216 7.6 2.66 7.6 22.3 84 15.6 163 07/31/21 0248 9.5 3.45 9.9 28.7 83 15.1 207 07/31/21 0043 9.9 30.6 Basic Metabolic Panel (Last 5 results in the past 3 years) Na K Cl CO2 Gap Glu BUN Cr Ca 08/03/2149 138 3.8 103 25 14 88 3 0.65 8.7 08/02/21 0012 138 4.2 106 25 11 85 4 0.66 8.4 08/01/21 0007 135 4.5 105 24 11 101 6 0.63 8.1 07/31/21 0248 135 4.6 106 22 12 129 10 0.85 8.9 07/31/21 0043 138 LFT's (last 3 years, up to 5 values) (Last 5 results in the past 3 years) T Prot Albumin D Bili T Bili Alk Phos ALT AST 08/03/2149 4.5 2.7 0.20 0.6 43 29 26 08/02/21 0012 4.4 2.6 0.20 0.8 35 34 37 08/01/216 3.7 2.7 0.20 1.0 32 40 53 07/31/21 0248 4.7 3.7 0.40 1.8 30 55 102 04/22/21 2203 5.2 2.1 0.10 0.6 55 13 15 INR (no units) Date Value 08/01/2021 1.13 (H) 07/15/2021 1.01 04/26/2021 1.26 (H) 04/22/2021 1.30 (H) 04/08/2021 1.19 (H) Vitals: Vitals: 08/10/21 1448 BP: 138/62 Pulse: 81 Resp: 16 Temp: 97.7 F (36.5 C) SpO2: 100% Physical Exam: General: alert, no acute distress, cooperative HEENT: perrl, no scleral icterus, eomi Neck: supple, no masses Respiratory: regular rate and good chest expansion, CTA bilaterally Cardiovascular: RRR Abdomen: Soft, non-tender, non-distended, drain in place less than 10cc serous fluid in bulb. Oolitic in place, incision healing Lymphatic: No cervical or supraclavicular adenopathy noted Musculoskeletal: no traumatic injuries, regular rom Neurologic: gcs 15, a and o Assessment: 41 year old female here for f/u sp cystectomy and yovani-en-y hepaticojejunostomy Plan -drain removed in clinic w/o issue -ramana to remain for another 1-2 wks until f/u visit w/Dr. Sarmiento -pt has phone visit w/Dr. Sarmiento on 08/16/21. Can consider switching to in- person visit for stapleremoval Patient discussed w/attending Dr. Larson Total length of time 30 (minutes) of the encounter and more than 50% was spent counseling the patient. Josephine Osborn MD General Surgery Resident, PGY-4 * Gem Flores - 08/10/2021 2:48 PM EDT Patient was identified by name and date of . Gem Flores Patient at risk for falls:No Falls Risk protocol implemented: No documented in this [id number] Hospital Discharge instructions* Discharge Instructions* Meenakshi Weeks PA-C - 08/04/2021 8:31 AM EDT GENERAL SURGERY DISCHARGE INSTRUCTIONS C O N F I D E N T I A L I N F O R M A T I O N Shahla Ruelas [id number] The following is a brief overview of your hospitalization. Some of the information contained on this summary may be confidential. This information should be kept in your records and should be shared with your regular doctor. Admission Date:07/30/2021 8:05 AM Discharge Date: No discharge date for patient encounter. Disposition: Home PRINCIPAL DIAGNOSIS (reason after study for this admission): Cyst of gallbladder [K82.8] Liver cyst [K76.89] Other Diagnosis: Patient Active Hospital Problem List: Patient Active Problem List: Cyst of gallbladder [K82.8] HTN (hypertension) [I10] Gastroesophageal reflux disease without esophagitis [K21.9] Nausea & vomiting [R11.2] Class 2 obesity with body mass index (BMI) of 38.0 to 38.9 in adult [E66.9, Z68.38] Common bile duct stone [K80.50] Acute pancreatitis after endoscopic retrograde cholangiopancreatography (ERCP) [K91.89, K85.90] History of biliary stent insertion [Z98.890] Right upper quadrant abdominal pain [R10.11] Perihepatic fluid collection [K76.89] 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 Cystadenoma involving bile ducts, cholangiogram showed leak from left hepatic duct. Polyp extracted from left hepatic duct. Yovani-en-y hepaticojejunostomy x 2 to left hepatic duct and an accessory duct. 19Fr JANETT placed near HJ. Treatment/wound care: Keep area(s) clean and dry. It is okay to shower 48 hours after time of surgery. Do not scrub wound(s), pat dry. Do not submerge wound(s) in standing water until seen back in clinic (no tub bathing, swimming, or hot tubs). No lotions or creams. Please visually inspect your wound(s) at least once daily. If the wound(s) are in a difficult to see location, please use a mirror or have someone else assist with visual inspection. If you have sutures that you can see outside of the skin or ramana: Please have ramana/sutures removed in our clinic or by your primary care physician 10-14 days after the date of surgery. Do not remove the ramana/sutures on your own. Return sooner or call if wound(s) or surrounding area have increased swelling, pain, warmth, redness, or drainage that is thick, yellow and/or green. Pending results: Surgical pathology Pain Control: Please take tylenol and motrin for mild to moderate pain. Oxycodone can be taken as prescribed as needed for breakthrough pain. Oxycodone is a narcotic, which can induce constipation. Please take docusate when taking oxycodone to prevent constipation. Activity after Discharge: No heavy lifting, weight bearing as tolerated, no driving until mobility is returned to normal. Do not lift, push or pull more than [address] for 6 weeks and do notdrive or operate heavy machinery while taking narcotic pain medications as these medications can alter perception, impair judgement, and slow reaction times. Diet: GI Soft diet Follow-Up: You have a follow-up appointment with the [facility] Surgery [facility] on 08/10/21 at 3:15pm. You also have a telephone visit with Dr. Sarmiento on 08/16/21. Additional Instructions: Medication changes: You have a medication called Losartan (Cozaar) listed on your home medications. Please hold this medication and see your primary care provider as soon as possible to discuss your blood pressure. It has been at a normal level while in the hospital. You have a drain in place - please continue to empty the drain and measure what comes out daily or as needed. Please call if the output changes drastically in color/consistency or if the amount increases greatly. I have received a copy of the above instructions and understand them. I have received my personal belongings and/or valuables slip. SIGNED: Patient/Significant Other SIGNED: Registered Nurse documented in this [id number] History of Present illness Narrative* Meenakshi Weesk PA-C - 08/04/2021 6:43 AM EDT Images from the original note were not included. [facility]ESS NOTE Interval history/Events: NAEON Pain adequately controlled on current regimen Denies N/V Tolerating PO, FLD + flatus, - BMs Voiding without difficulty JANETT drain with 120 serosang output in 24hr Ambulating independently, endorses more walking yesterday than day before IS at bedside Objective: Tmax (24 hours): 98.5 F (36.9 C) Pulse Av.8 Min: 70 Max: 84 Systolic (24hrs), Av , Min:110 , Max:126 Diastolic (24hrs), Av, Min:48, Max:91 SpO2 Av.3 % Min: 97 % Max: 100 % Resp Av.5 Min: 16 Max: 18 Intake/Output Summary (Last 24 hours) at 08/04/2021 0643 Last data filed at 08/04/2021 0500 Gross per 24 hour Intake 480 ml Output 2045 ml Net -1565 ml Physical Exam: Gen: NAD, Alert and oriented; sitting up in bed Pulm: Non labored breathing on RA, no conversational dyspnea Heart: Regular rate per chart Abd: Soft, ND, approprietly TTP, incision c/d/i with ramana in place; JANETT drain in place with serosanguinous drainage in bulb Ext: Warm and well perfused, No edema, SCDs in place Labs: CBC/PT/INR WBC RBC Hgb Hct MCV RDW Plt PT aPTT INR 08/03/21 0050 6.5 2.97 8.6 24.9 84 15.4 245 08/02/21 0012 7.8 2.87 8.0 24.0 84 15.5 186 08/01/21 0841 29 08/01/21 0841 1.13 WBC/Diff None Basic Metabolic Panel Na K Cl CO2 Gap Glu BUN Cr Ca Mg PO4 08/03/21 0050 138 3.8 103 25 14 88 3 0.65 8.7 08/03/21 0050 1.9 08/02/21 0012 1.9 08/02/21 0012 138 4.2 106 25 11 85 4 0.66 8.4 Hepatic/Biliary/Pancreas T Prot Albumin D Bili T Bili Alk Phos ALT AST Amylase Lipase 08/03/21 0050 4.5 2.7 0.20 0.6 43 29 26 08/02/21 0012 4.4 2.6 0.20 0.8 35 34 37 Fingerstick Glucose (last 72 hours) None Cultures: Blood Culture None Pyogen Culture Pyogen culture 07/30/21 1619 Positive Culture Report Rare Enterobacter cloacae complex Sputum Culture None CSF Culture None Urine Culture None Studies/imaging: No new imaging to review ----- Medications: Scheduled gabapentin 300 mg 3x Daily calcium carbonate 500 mg 3x Daily [MAR Hold] albuterol 2.5 mg Q4H RT nicotine 14 mg Daily sucralfate 1 g 4x Daily AC & HS enoxaparin 40 mg Daily acetaminophen 650 mg q6h methocarbamol 750 mg 4x Daily fluoxetine 20 mg Daily trazodone 200 mg At Bedtime esomeprazole 40 mg Daily 30 min before breakfast scopolamine 1.5 mg Q72H PRN oxyCODONE 10 mg Q4H PRN oxyCODONE 5 mg Q4H PRN albuterol 2.5 mg Q4H PRN Promethazine HCl 6.25 mg Q6H PRN ondansetron 4 mg Q6H PRN naloxone 0.4 mg PRN IV Assessment: 41 year old female with PMHx SHARI, asthma, HTN, biliary cystadenoma s/p dx lap, bilateral TAP block, exploratory laparotomy, lysis of adhesions, enucleation biliary cystadenoma, common bile duct exploration, biliary endoscopy, cholangiogram, yovani-en-y hepaticojejunostomy x 2. Noted to have bile leak on 08/01/2021. Progressing well post-operatively. Plan: Neuro/Pain: scheduled tylenol, robaxin, gabapentin. Prn oxy 07/13. Cont home home trazodone and fluoxetine CV: Monitor vital signs. Holding home losartan. Pulm: Resp bobtailer protocol, Encourage IS x10/hr, OOB and ambulation GI: Continue GI soft diet. Cont nexium daily, carafate. /FEN: HLIV Endocrine: no hx of glyemic issues ID: No abx indicated Proph: lovenox daily and SCDs Dispo: DC to home today Patient was seen with chief resident, Dr. Osborn and d/w Attending Surgeon Dr. Sarmiento. --- Meenakshi Weeks PA-C General Surgery P[facility] * Varsha Solis RN - 08/03/2021 11:51 AM EDT CASE MANAGEMENT CM at bedside to speak with patient about discharge plans. She states she lives with her who will be able to help her as needed. Patient aware that she was cleared to return home per therapy without home needs; we discussed her plan to ambulate laps as directed by therapists. Patient currently has JANETT drain. If she will return home with drain, CM explained that bedside nursing staff will in struct her before discharge. No other discharge needs identified at this time. Patient's spouse to transport her home at discharge. Case Management will continue to follow patient for further discharge planning needs as warranted. MILAN Ferrell, professional benefits sales consultant * Nicole Bello PA-C - 08/03/2021 7:19 AM EDT Images from the original note were not included. BLUE SURGERY PROGRESS NOTE Interval history/Events: No acute events overnight Pain adequately controlled with current pain regimen Tolerating full liquid diet Passing flatus Ambulating in the room Using IS Drain output less bilious Objective: Tmax (24 hours): 98.2 F (36.8 C) Pulse Av.3 Min: 75 Max: 85 Systolic (24hrs), Av , Min:108 , Max:127 Diastolic (24hrs), Av, Min:55, Max:67 SpO2 Av % Min: 97 % Max: 99 % Resp Av Min: 18 Max: 18 Intake/Output Summary (Last 24 hours) at 08/03/2021 0719 Last data filed at 08/03/2021 0540 Gross per 24 hour Intake 2753.75 ml Output 2620 ml Net 133.75 ml Physical Exam: Gen: NAD, Alert and oriented Pulm: Non labored breathing on RA, CTAB Heart: RRR Abd: Soft, ND, approprietly TTP along right subcostal incision. JANETT drain more SS, less bilious Ext: Warm and well perfused, No edema, SCDs in place Labs: CBC/PT/INR WBC RBC Hgb Hct MCV RDW Plt PT aPTT INR 08/03/21 0050 6.5 2.97 8.6 24.9 84 15.4 245 08/02/21 0012 7.8 2.87 8.0 24.0 84 15.5 186 08/01/21 0841 29 08/01/21 0841 1.13 08/01/21 000 7.6 2.66 7.6 22.3 84 15.6 163 Basic Metabolic Panel Na K Cl CO2 Gap Glu BUN Cr Ca Mg PO4 08/03/2149 138 3.8 103 25 14 88 3 0.65 8.7 08/03/2149 1.9 08/02/21 001 1.9 08/02/2111 138 4.2 106 25 11 85 4 0.66 8.4 08/01/216 1.9 08/01/216 135 4.5 105 24 11 101 6 0.63 8.1 Hepatic/Biliary/Pancreas T Prot Albumin D Bili T Bili Alk Phos ALT AST Amylase Lipase 08/03/2149 4.5 2.7 0.20 0.6 43 29 26 08/02/21 001 4.4 2.6 0.20 0.8 35 34 37 08/01/216 3.7 2.7 0.20 1.0 32 40 53 Cultures: Blood Culture None Pyogen Culture Pyogen culture 07/30/21 1619 Culture in Progress- results to follow. [P] [P] - Preliminary Result Studies/imaging: None new ----- Medications: Scheduled magnesium sulfate 1,000 mg One Time Dose gabapentin 300 mg 3x Daily calcium carbonate 500 mg 3x Daily [MAY Hold] albuterol 2.5 mg Q4H RT nicotine 14 mg Daily sucralfate 1 g 4x Daily AC & HS enoxaparin 40 mg Daily acetaminophen 650 mg q6h methocarbamol 750 mg 4x Daily fluoxetine 20 mg Daily trazodone 200 mg At Bedtime esomeprazole 40 mg Daily 30 min before breakfast scopolamine 1.5 mg Q72H PRN oxyCODONE 10 mg Q4H PRN oxyCODONE 5 mg Q4H PRN albuterol 2.5 mg Q4H PRN Promethazine HCl 6.25 mg Q6H PRN ondansetron 4 mg Q6H PRN naloxone 0.4 mg PRN IV lactated ringers 75 mL/hr at 08/02/21 0619 Assessment: 41 year old female with PMHx SHARI, asthma, HTN, biliary cystadenoma s/p dx lap, bilateral TAP block,exploratory laparotomy, lysis of adhesions, enucleation biliary cystadenoma, common bile duct exploration, biliary endoscopy, cholangiogram, yovani-en-y hepaticojejunostomy x 2. Noted to have bile leakon 08/01/2021. Plan: Neuro/Pain: scheduled tylenol, robaxin, gabapentin. Prn oxy 5/10. Cont home home trazodone and fluoxetine CV: Monitor vital signs. Holding home losartan. Pulm: Resp bobtailer protocol, Encourage IS x10/hr, OOB and ambulation GI: Advance to GI soft diet. Cont nexium daily, carafate. /FEN: cont LR at 75/hr. Endocrine: no hx of glyemic issues ID: No abx indicated Proph: lovenox daily and SCDs Dispo: Continue on RNF Patient was seen with chief resident Dr. Osborn and discussed with attending surgeon Dr. Sarmiento. --- Nicole Bello PA-C General Surgery PGY3 Blue Pager: [phone] * Tamara Jurado MD - 08/02/2021 8:53 AM EDT Images from the original note were not included. BLUE SURGERY PROGRESS NOTE Interval history/Events: No acute events overnight Pain adequately controlled with CAR WASH MANAGER Tolerating clear liquid Using IS Drain output less bilious Objective: Tmax (24 hours): 98.2 F (36.8 C) Pulse Av.5 Min: 77 Max: 84 Systolic (24hrs), Av , Min:102 , Max:114 Diastolic (24hrs), Av, Min:50, Max:67 SpO2 Av % Min: 96 % Max: 99 % Resp Av Min: 18 Max: 18 Intake/Output Summary (Last 24 hours) at 08/02/2021 0853 Last data filed at 08/02/2021 0620 Gross per 24 hour Intake 1039.6 ml Output 3160 ml Net -2120.4 ml Physical Exam: Gen: NAD, Alert and oriented Pulm: Non labored breathing on NC, CTAB Heart: RRR Abd: Soft, ND, approprietly TTP along right subcostal incision. JANETT drain more SS, less bilious Ext: Warm and well perfused, No edema, SCDs in place Labs: CBC/PT/INR WBC RBC Hgb Hct MCV RDW Plt PT aPTT INR 08/02/21 0012 7.8 2.87 8.0 24.0 84 15.5 186 08/01/21 0841 29 08/01/21 0841 1.13 08/01/21 0007 7.6 2.66 7.6 22.3 84 15.6 163 07/31/21 0248 9.5 3.45 9.9 28.7 83 15.1 207 07/31/21 0043 9.9 30.6 07/30/212009 9.5 29.5 07/30/21 1738 12.2 37.4 07/30/21 1647 11.9 36.6 WBC/Diff None Basic Metabolic Panel Na K Cl CO2 Gap Glu BUN Cr Ca Mg PO4 08/02/21 0012 1.9 08/02/21 0012 138 4.2 106 25 11 85 4 0.66 8.4 08/01/21 0007 1.9 08/01/21 0007 135 4.5 105 24 11 101 6 0.63 8.1 07/31/218 1.5 07/31/218 135 4.6 106 22 12 129 10 0.85 8.9 07/31/21 0043 138 07/30/212009 138 07/30/21 1738 135 07/30/21 1647 137 Hepatic/Biliary/Pancreas T Prot Albumin D Bili T Bili Alk Phos ALT AST Amylase Lipase 08/02/21 0012 4.4 2.6 0.20 0.8 35 34 37 08/01/21 0007 3.7 2.7 0.20 1.0 32 40 53 07/31/21 0248 4.7 3.7 0.40 1.8 30 55 102 Fingerstick Glucose (last 72 hours) None Cultures: Blood Culture None Pyogen Culture Pyogen culture 07/30/21 1619 Culture in Progress- results to follow. [P] [P] - Preliminary Result Sputum Culture None CSF Culture None Urine Culture None Studies/imaging: ----- Medications: Scheduled gabapentin 300 mg 3x Daily calcium carbonate 500 mg 3x Daily [MAR Hold] albuterol 2.5 mg Q4H RT nicotine 14 mg Daily sucralfate 1 g 4x Daily AC & HS enoxaparin 40 mg Daily acetaminophen 650 mg q6h methocarbamol 750 mg 4x Daily fluoxetine 20 mg Daily trazodone 200 mg At Bedtime esomeprazole 40 mg Daily 30 min before breakfast scopolamine 1.5 mg Q72H PRN oxyCODONE 10 mg Q4H PRN oxyCODONE 5 mg Q4H PRN albuterol 2.5 mg Q4H PRN Promethazine HCl 6.25 mg Q6H PRN ondansetron 4 mg Q6H PRN naloxone 0.4 mg PRN IV lactated ringers 75 mL/hr at 08/02/21 0619 Assessment: 41 year old female with PMHx SHARI, asthma, HTN, biliary cystadenoma s/p dx lap, bilateral TAP block,exploratory laparotomy, lysis of adhesions, enucleation biliary cystadenoma, common bile duct exploration, biliary endoscopy, cholangiogram, yovani-en-y hepaticojejunostomy x 2. Noted to have bile leakon 08/01/2021. Plan: Neuro/Pain: scheduled tylenol, robaxin, gabapentin. Prn oxy 07/13. Cont home home trazodone and fluoxetine CV: Monitor vital signs. Holding home losartan. Pulm: Resp bobtailer protocol, Encourage IS x10/hr, OOB and ambulation GI: FLD. Cont nexium daily, carafate. /FEN: cont LR at 75/hr. TOV today. Endocrine: no hx of glyemic issues ID: No abx indicated Proph: lovenox daily and SCDs Dispo: Continue on RNF Patient d/w Attending Surgeon Dr. Sarmiento --- Tamara Jurado MD General Surgery PGY3 Blue Pager: [phone] * Madeleine Hooks MD - 08/01/2021 8:06 AM EDT Images from the original note were not included. BLUE SURGERY PROGRESS NOTE Interval history/Events: No acute events overnight Pain adequately controlled with CAR WASH MANAGER Mild nausea but improved Tolerating clear liquid No flatus or bowel movement Voiding without difficulty Using IS Drain output turned bilious this morning and leaking around the drain Objective: Tmax (24 hours): 98.9 F (37.2 C) Pulse Av.8 Min: 78 Max: 88 Systolic (24hrs), Av , Min:94 , Max:110 Diastolic (24hrs), Av, Min:47, Max:57 SpO2 Av.3 % Min: 95 % Max: 100 % Resp Av.7 Min: 16 Max: 18 Intake/Output Summary (Last 24 hours) at 08/01/2021 0806 Last data filed at 08/01/2021 0634 Gross per 24 hour Intake 3205.05 ml Output 2195 ml Net 1010.05 ml Physical Exam: Gen: NAD, Alert and oriented Pulm: Non labored breathing on NC , CTAB Heart: RRR Abd: Soft, ND, approprietly TTP along right subcostal incision, dressing mildly saturated and lateral aspect stained with bile. JANETT drain with upton brown bile output with leaking around the drain Ext: Warm and well perfused, No edema, SDCs in place Labs: CBC/PT/INR WBC RBC Hgb Hct MCV RDW Plt PT aPTT INR 08/01/216 7.6 2.66 7.6 22.3 84 15.6 163 07/31/21247 9.5 3.45 9.9 28.7 83 15.1 207 07/31/21 0043 9.9 30.6 07/30/212009 9.5 29.5 07/30/218 12.2 37.4 07/30/211646 11.9 36.6 WBC/Diff None Basic Metabolic Panel Na K Cl CO2 Gap Glu BUN Cr Ca Mg PO4 08/01/216 1.9 08/01/21 000 135 4.5 105 24 11 101 6 0.63 8.1 07/31/21247 1.5 07/31/21247 135 4.6 106 22 12 129 10 0.85 8.9 07/31/213 138 07/30/212009 138 07/30/211737 135 05/27/22 1647 137 Hepatic/Biliary/Pancreas T Prot Albumin D Bili T Bili Alk Phos ALT AST Amylase Lipase 08/01/21 0007 3.7 2.7 0.20 1.0 32 40 53 07/31/21 0248 4.7 3.7 0.40 1.8 30 55 102 Fingerstick Glucose (last 72 hours) None Cultures: Blood Culture None Pyogen Culture Pyogen culture 07/30/21 1619 No growth to date, culture reincubated [P] [P] - Preliminary Result Sputum Culture None CSF Culture None Urine Culture None Studies/imaging: ----- Medications: Scheduled nicotine 14 mg Daily sucralfate 1 g 4x Daily AC & HS enoxaparin 40 mg Daily acetaminophen 650 mg q6h methocarbamol 750 mg 4x Daily fluoxetine 20 mg Daily trazodone 200 mg At Bedtime esomeprazole 40 mg Daily 30 min before breakfast scopolamine 1.5 mg Q72H PRN Promethazine HCl 6.25 mg Q6H PRN ondansetron 4 mg Q6H PRN .NO ORAL PAIN MEDS WHILE ON CAR WASH MANAGER/EPIDURAL 1 Each PRN naloxone 0.4 mg PRN IV lactated ringers 75 mL/hr at 08/01/21 0449 HYDROmorphone Assessment: 41 year old female with PMHx SHARI, asthma, HTN, biliary cystadenoma s/p dx lap, bilateral TAP block,exploratory laparotomy, lysis of adhesions, enucleation biliary cystadenoma, common bile duct exploration, biliary endoscopy, cholangiogram, yovani-en-y hepaticojejunostomy x 2. Noted to have bile leakon 08/01/2021. Plan: Neuro/Pain: scheduled tylenol, robaxin. Dilaudid CAR WASH MANAGER. Cont home trazodone and fluoxetine CV: Monitor vital signs Pulm: Resp bobtailer protocol, Encourage IS x10/hr, OOB and ambulation GI: NPO for possible PTHC today. Consult IR for PTHC given bile leak ( discussed with ED resident services manager who will discuss with IR team). Cont nexium daily, carafate /FEN: cont LR at 75/hr. Voiding spontaneously Endocrine: no hx of glyemic issues ID: No abx indicated Proph: lovenox daily and SCDs Dispo: Continue on RNF Patient d/w Attending Surgeon Dr. Sarmiento --- Madeleine Hooks MD General Surgery PGY3 Blue Pager: [phone] * Tamara Jurado MD - 07/31/2021 8:55 AM EDT Images from the original note were not included. BLUE SURGERY PROGRESS NOTE Subjective - NAEON - some abdominal pain on CAR WASH MANAGER - some indigestion this morning - has not passed gas - denies nausea Objective: Vitals: 07/31/21 0500 BP: 131/67 Pulse: 73 Resp: 16 Temp: 97.7 F (36.5 C) SpO2: 98% Physical Exam: Gen: NAD, Alert and oriented Pulm: Non labored breathing on 2L NC, no conversational dyspnea Heart: RR Abd: Soft, ND, appropriately TTP, incision with dressing with minimal strikethrough, JANETT SS : ryees in place draining clear yellow urine Ext: Warm and well perfused, No edema, SDCs in place Patient Vitals for the past 24 hrs: BP Temp Temp src Pulse Resp SpO2 O2 Device O2 Flow Rate (l/min) FiO2 (%) 07/31/21 0500 131/67 97.7 F (36.5 C) Oral 73 16 98 % Nasal cannula 2 -- 07/31/21 0214 118/69 98.4 F (36.9 C) Oral 99 16 95 % Nasal cannula 2 -- 07/31/21 0100 139/72 -- -- 79 14 97 % Nasal cannula 2 -- 07/31/21 0030 139/72 98.4 F (36.9 C) Oral 79 14 93 % Room air 0 -- 07/31/21 0000 134/69 -- -- 77 20 100 % Nasal cannula 4 -- 07/30/21 2345 139/72 97.7 F (36.5 C) Oral 81 18 -- Nonrebreather 15 100 07/30/21 2330 141/71 -- -- 88 16 100 % Nonrebreather 15 100 07/30/21 2316 135/63 98.4 F (36.9 C) Oral 88 16 100 % Nonrebreather 15 100 Tmax (24 hours): 98.4 F (36.9 C) Pulse Av.7 Min: 46 Max: 114 Systolic (24hrs), Av , Min:118 , Max:141 Diastolic (24hrs), Av, Min:63, Max:72 SpO2 Av.5 % Min: 77 % Max: 100 % Resp Av.9 Min: 2 Max: 21 Intake/Output Summary (Last 24 hours) at 07/31/2021 0856 Last data filed at 07/31/2021 0655 Gross per 24 hour Intake 5581.8 ml Output 2450 ml Net 3131.8 ml Net IO Since Admission: 3,131.8 mL [07/31/21 0856] Labs: CBC/PT/INR WBC RBC Hgb Hct MCV RDW Plt PT aPTT INR 07/31/21247 9.5 3.45 9.9 28.7 83 15.1 207 07/31/21 004 9.9 30.6 07/30/212009 9.5 29.5 07/30/21 1738 12.2 37.4 07/30/21 1647 11.9 36.6 WBC/Diff None Basic Metabolic Panel Na K Cl CO2 Gap Glu BUN Cr Ca Mg PO4 07/31/218 1.5 07/31/21247 135 4.6 106 22 12 129 10 0.85 8.9 07/31/213 138 07/30/212009 138 07/30/21 1738 135 07/30/21 1647 137 Hepatic/Biliary/Pancreas T Prot Albumin D Bili T Bili Alk Phos ALT AST Amylase Lipase 07/31/218 4.7 3.7 0.40 1.8 30 55 102 Fingerstick Glucose (last 72 hours) None ----- Medications: Scheduled magnesium sulfate 4,000 mg One Time Dose enoxaparin 40 mg Daily acetaminophen 650 mg q6h methocarbamol 750 mg 4x Daily fluoxetine 20 mg Daily trazodone 200 mg At Bedtime esomeprazole 40 mg Daily 30 min before breakfast celecoxib 200 mg 2x Daily scopolamine 1.5 mg Q72H PRN ondansetron 4 mg Q6H PRN .NO ORAL PAIN MEDS WHILE ON CAR WASH MANAGER/EPIDURAL 1 Each PRN naloxone 0.4 mg PRN IV lactated ringers 75 mL/hr at 07/31/21 0249 HYDROmorphone Assessment: 41 y/o F with gallbladder cyst and liver cyst who is s/p diagnostic laparoscopy, exploratory laparotomy, KATHERIN, enucleation biliary cyst adenoma, common bile duct exploration, biliary endoscopy, cholangiogram, and Yovani-en-y hepaticojejunosotomy x [address] Sarmiento and [address] Larson Plan: - CLD; Zofran, Phenergan, Scopolamine patch for nausea; continue carafate - Tylenol, Robaxin, CAR WASH MANAGER - LR 75, daily labs - oob as tolerated - IS 10x/hr - no infectious concerns - trend H/H - Lovenox - PIVs, reyes in place - hemodynamically stable, continue to monitor vitals. Hold home losartan. - Nexium - no glycemic concerns - continue home Prozac, trazodone. Hold home Klonopin, Rexulti Patient was discussed w/ Attending Surgeon Dr. Torsten Jurado MD PGY1 documented in this [id number] Note* Care Plan Note - Oly High RN - 08/04/2021 3:53 AM EDT Problem: Routine Care: Goal: Patient care will be managed and maintained throughout hospital stay per unit specific routine care procedure Outcome: Progressing Problem: Safety: Goal: Patient will remain free of falls during hospital stay Outcome: Progressing Goal: Free from injury during hospitalization Outcome: Progressing Problem: Acute Pain: Goal: Ability to identify pain intensity on a pain scale and rate it consistently will be achieved and maintained Outcome: Progressing Goal: Understanding of proper administration and use of medicines will be achieved Outcome: Progressing Goal: Acceptable level of pain which allows the patient to achieve functional outcome goals Outcome: Progressing Goal: Ability to identify factors that manage or decrease pain will be achieved Outcome: Progressing Problem: VTE Prophylaxis: Goal: Will be free of DVT Outcome: Progressing Problem: Discharge Planning: Goal: Discharge needs of the adult patient will be met Outcome: Progressing [id number] Miscellaneous Notes* Care Plan Note - Oly High RN - 08/04/2021 3:53 AM EDT Problem: Routine Care: Goal: Patient care will be managed and maintained throughout hospital stay per unit specific routine care procedure Outcome: Progressing Problem: Safety: Goal: Patient will remain free of falls during hospital stay Outcome: Progressing Goal: Free from injury during hospitalization Outcome: Progressing Problem: Acute Pain: Goal: Ability to identify pain intensity on a pain scale and rate it consistently will be achieved and maintained Outcome: Progressing Goal: Understanding of proper administration and use of medicines will be achieved Outcome: Progressing Goal: Acceptable level of pain which allows the patient to achieve functional outcome goals Outcome: Progressing Goal: Ability to identify factors that manage or decrease pain will be achieved Outcome: Progressing Problem: VTE Prophylaxis: Goal: Will be free of DVT Outcome: Progressing Problem: Discharge Planning: Goal: Discharge needs of the adult patient will be met Outcome: Progressing * Care Plan Note - Antoinette Elmore RN - 08/03/2021 4:53 PM EDT Problem: Routine Care: Goal: Patient care will be managed and maintained throughout hospital stay per unit specific routine care procedure Outcome: Progressing Note: Call jc within reach. Problem: Safety: Goal: Patient will remain free of falls during hospital stay Outcome: Progressing Note: Bed alarm in place Goal: Free from injury during hospitalization Outcome: Progressing Problem: Acute Pain: Goal: Ability to identify pain intensity on a pain scale and rate it consistently will be achieved and maintained Outcome: Progressing Note: PRN pain medications administered per order. Goal: Understanding of proper administration and use of medicines will be achieved Outcome: Progressing Goal: Acceptable level of pain which allows the patient to achieve functional outcome goals Outcome: Progressing Goal: Ability to identify factors that manage or decrease pain will be achieved Outcome: Progressing Problem: VTE Prophylaxis: Goal: Will be free of DVT Outcome: Progressing Problem: Discharge Planning: Goal: Discharge needs of the adult patient will be met Outcome: Progressing * Care Plan Note - Rayshawn Shaw RN - 08/03/2021 1:20 AM EDT Problem: Routine Care: Goal: Patient care will be managed and maintained throughout hospital stay per unit specific routine care procedure Outcome: Progressing Problem: Safety: Goal: Patient will remain free of falls during hospital stay Outcome: Progressing Goal: Free from injury during hospitalization Outcome: Progressing Problem: Acute Pain: Goal: Ability to identify pain intensity on a pain scale and rate it consistently will be achieved and maintained Outcome: Progressing Goal: Understanding of proper administration and use of medicines will be achieved Outcome: Progressing Goal: Acceptable level of pain which allows the patient to achieve functional outcome goals Outcome: Progressing Goal: Ability to identify factors that manage or decrease pain will be achieved Outcome: Progressing Problem: VTE Prophylaxis: Goal: Will be free of DVT Outcome: Progressing Problem: Discharge Planning: Goal: Discharge needs of the adult patient will be met Outcome: Progressing * Care Plan Note - Keiko Zhang RN - 08/02/2021 9:45 AM EDT Problem: Routine Care: Goal: Patient care will be managed and maintained throughout hospital stay per unit specific routine care procedure 08/02/2021 0945 by Keiko Zhang RN Outcome: Progressing 08/02/2021 0944 by Keiko Zhang RN Outcome: Progressing Problem: Safety: Goal: Patient will remain free of falls during hospital stay 08/02/2021 0945 by Keiko Zhang RN Outcome: Progressing 08/02/2021 0944 by Keiko Zhang RN Outcome: Progressing Goal: Free from injury during hospitalization 08/02/2021 0945 by Keiko Zhang RN Outcome: Progressing 08/02/2021 0944 by Keiko Zhang RN Outcome: Progressing Problem: Acute Pain: Goal: Ability to identify pain intensity on a pain scale and rate it consistently will be achieved and maintained 08/02/2021 0945 by Keiko Zhang RN Outcome: Progressing 08/02/2021 0944 by Keiko Zhang RN Outcome: Progressing Goal: Understanding of proper administration and use of medicines will be achieved 08/02/2021 0945 by Keiko Zhang RN Outcome: Progressing 08/02/2021 0944 by Keiko Zhang RN Outcome: Progressing Goal: Acceptable level of pain which allows the patient to achieve functional outcome goals 08/02/2021 0945 by Keiko Zhang RN Outcome: Progressing 08/02/2021 0944 by Keiko Zhang RN Outcome: Progressing Goal: Ability to identify factors that manage or decrease pain will be achieved 08/02/2021 0945 by Keiko Zhang RN Outcome: Progressing 08/02/2021 09 by Keiko Zhang RN Outcome: Progressing Problem: VTE Prophylaxis: Goal: Will be free of DVT 08/02/2021944 by Keiko Zhang RN Outcome: Progressing 08/02/2021943 by Keiko Zhang RN Outcome: Progressing Problem: Discharge Planning: Goal: Discharge needs of the adult patient will be met 08/02/2021944 by Keiko Zhang RN Outcome: Progressing 08/02/2021943 by Keiko Zhang RN Outcome: Progressing * Care Plan Note - Dinorah Palencia RN - 08/02/2021 3:21 AM EDT Problem: Routine Care: Goal: Patient care will be managed and maintained throughout hospital stay per unit specific routine care procedure Outcome: Progressing Problem: Alteration in Respiratory Status: Goal: Achieve Optimal Respiratory Status with Minimal Ventilatory/Oxygen Support Outcome: Progressing Problem: Acute Pain: Goal: Ability to identify pain intensity on a pain scale and rate it consistently will be achieved and maintained Outcome: Progressing Problem: Safety: Goal: Patient will remain free of falls during hospital stay Outcome: Progressing Problem: Discharge Planning: Goal: Discharge needs of the adult patient will be met Outcome: Progressing Problem: Routine Care: Goal: Patient care will be managed and maintained throughout hospital stay per unit specific routine care procedure Outcome: Progressing Problem: Safety: Goal: Patient will remain free of falls during hospital stay Outcome: Progressing Goal: Free from injury during hospitalization Outcome: Progressing Problem: Acute Pain: Goal: Ability to identify pain intensity on a pain scale and rate it consistently will be achieved and maintained Outcome: Progressing Goal: Understanding of proper administration and use of medicines will be achieved Outcome: Progressing Goal: Acceptable level of pain which allows the patient to achieve functional outcome goals Outcome: Progressing Goal: Ability to identify factors that manage or decrease pain will be achieved Outcome: Progressing Problem: VTE Prophylaxis: Goal: Will be free of DVT Outcome: Progressing Problem: Discharge Planning: Goal: Discharge needs of the adult patient will be met Outcome: Progressing * Care Plan Note - Dinorah Palencia RN - 08/01/2021 1:42 AM EDT Problem: Routine Care: Goal: Patient care will be managed and maintained throughout hospital stay per unit specific routine care procedure Outcome: Progressing Problem: Alteration in Respiratory Status: Goal: Achieve Optimal Respiratory Status with Minimal Ventilatory/Oxygen Support Outcome: Progressing Problem: Acute Pain: Goal: Ability to identify pain intensity on a pain scale and rate it consistently will be achieved and maintained Outcome: Progressing Problem: Safety: Goal: Patient will remain free of falls during hospital stay Outcome: Progressing Problem: Discharge Planning: Goal: Discharge needs of the adult patient will be met Outcome: Progressing Problem: Routine Care: Goal: Patient care will be managed and maintained throughout hospital stay per unit specific routine care procedure Outcome: Progressing Problem: Safety: Goal: Patient will remain free of falls during hospital stay Outcome: Progressing Goal: Free from injury during hospitalization Outcome: Progressing Problem: Acute Pain: Goal: Ability to identify pain intensity on a pain scale and rate it consistently will be achieved and maintained Outcome: Progressing Goal: Understanding of proper administration and use of medicines will be achieved Outcome: Progressing Goal: Acceptable level of pain which allows the patient to achieve functional outcome goals Outcome: Progressing Goal: Ability to identify factors that manage or decrease pain will be achieved Outcome: Progressing Problem: VTE Prophylaxis: Goal: Will be free of DVT Outcome: Progressing Problem: Discharge Planning: Goal: Discharge needs of the adult patient will be met Outcome: Progressing * Care Plan Note - Dinorah Palencia RN - 07/31/2021 2:42 AM EDT Problem: Routine Care: Goal: Patient care will be managed and maintained throughout hospital stay per unit specific routine care procedure Outcome: Progressing Problem: Alteration in Respiratory Status: Goal: Achieve Optimal Respiratory Status with Minimal Ventilatory/Oxygen Support Outcome: Progressing Problem: Acute Pain: Goal: Ability to identify pain intensity on a pain scale and rate it consistently will be achieved and maintained Outcome: Progressing Problem: Safety: Goal: Patient will remain free of falls during hospital stay Outcome: Progressing Problem: Discharge Planning: Goal: Discharge needs of the adult patient will be met Outcome: Progressing Problem: Routine Care: Goal: Patient care will be managed and maintained throughout hospital stay per unit specific routine care procedure Outcome: Progressing Problem: Safety: Goal: Patient will remain free of falls during hospital stay Outcome: Progressing Goal: Free from injury during hospitalization Outcome: Progressing Problem: Acute Pain: Goal: Ability to identify pain intensity on a pain scale and rate it consistently will be achieved and maintained Outcome: Progressing Goal: Understanding of proper administration and use of medicines will be achieved Outcome: Progressing Goal: Acceptable level of pain which allows the patient to achieve functional outcome goals Outcome: Progressing Goal: Ability to identify factors that manage or decrease pain will be achieved Outcome: Progressing Problem: VTE Prophylaxis: Goal: Will be free of DVT Outcome: Progressing Problem: Discharge Planning: Goal: Discharge needs of the adult patient will be met Outcome: Progressing * Brief Operative Note - Madeleine Hooks MD - 07/30/2021 2:08 PM EDT Brief Operative Note MAIN OR 07 Shahla Ruelas 41 year old female Surgical Contact Serial Number: [id number] Preoperative Diagnosis: Cyst of gallbladder [K82.8] Liver cyst [K76.89] Postoperative Diagnosis: * Cyst of gallbladder [K82.8] * Liver cyst [K76.89] Procedures: Diagnostic laparoscopy Exploratory laparotomy, Lysis of adhesions Enucleation biliary cyst adenoma Common bile duct exploration Biliary endoscopy Cholangiogram Yovani-en-y hepaticojejunostomy x 2, vascularized omental pledget Surgeon(s): Surgeon(s): Diamond Larson MD El-Hayek, Kevin M., MD El-Hayek, Kevin M., MD Staff: Nurse: Morro Valerio Scrub: Mercedes Soliman; Anya Fletcher; Juan Jon, VITA Orientation & Mobility Specialist Nurse: Vitaly Reyes, RN; Kraig Espinal; Rosa Seo, VITA; Yumiko Haji, VITA; Irnia Marie, VITA; Juany Higginbotham, ceramic maker demonstratorWood Die Maker: Madeleine Hooks MD Anesthesia: General Anesthesiologist: Neil Rodriguez MD; Uriel Hathaway DO CAA: Rina Childress MANAGER CORE: Adrian Bermudez CASING SPLITTER-MANAGER CORE; Jewel Vogel CASING SPLITTER-MANAGER CORE; Mariel Ireland CASING SPLITTER-MANAGER CORE Associate Theatre Professor: Al Mascorro MD; Jean Ojeda MD Specimen(s): ID Type Source Tests Collected by Time Destination 1 : Falciform Tissue Liver SPECIMEN FOR SURGICAL PATH Dennis Sarmiento MD 07/30/2021 1554 2 : biliary cystadenoma Tissue Liver SPECIMEN FOR SURGICAL PATH Dennis Sarmiento MD 07/30/2021 1719 3 : right hepatic duct polyp Tissue Liver SPECIMEN FOR SURGICAL PATH Dennis Sarmiento MD 07/30/2021 1813 A : liver cyst fluid Fluid Fluid, Cyst (Cytology) ANAEROBIC CULTURE, MISC, AFB CULTURE/SMEAR, CYTOLOGY FLUID Dennis Sarmiento MD 07/30/2021 1619 Estimated Blood Loss: 1300cc Lines/Drains: CVC - Single Lumen: 07/30/21 Central Line Right IJ (Active) Peripheral IV Access: 07/30/21 1213 18 gauge Right Hand (Active) Peripheral IV Access: 07/30/21 1217 16 gauge Left Hand (Active) Surgical Drain Esdras Saravia -- Round # 1 10 fr Right;Upper (Active) Temporarily Retained Foreign Object: No Findings: Large biliary cystadenoma with dense adhesions to omentum, stomach and duodenum. Cystadenoma involving bile ducts, cholangiogram showed leak from left hepatic duct. Polyp extracted from left hepatic duct. Yovani-en-y hepaticojejunostomy x 2 to left hepatic duct and an accessory duct. 19Fr JANETT placed near HJ. Complications: None Status at end of surgery: Stable Activity: progressive ambulation Surgical wound class: Yes, wound was clean contaminated. Patient Class: Surgery Admit. Is this a patient scheduled as an outpatient that needs to be admitted as an inpatient? No Dr. Sarmiento was present in the OR for the critical portion of the procedure and procedure sign-out. Signed by Madeleine Hooks MD 07/30/2021 11:09 PM * OP Note - Diamond Larson MD - 07/30/2021 2:08 PM EDT SURGICAL ONCOLOGY OPERATIVE NOTE Patient name: Shahla Ruelas Date of procedure: 07/30/2021 Pre-operative diagnosis: complex hepatic cystic lesion concerning for biliary cystadenoma Post-operative diagnosis: same Procedure: 1. Diagnostic laparoscopy 2. Laparoscopic bilateral transversus abdominus plane blocks 3. Exploratory laparotomy 4. Lysis of adhesions 5. Intra-operative ultrasound of the liver 6. Enucleation biliary cystadenoma Surgeon: Diamond Larson MD Co-Surgeon: Dennis Sarmiento MD Hand Dry Cleaner: Madeleine Hooks MD (general surgery resident) Anesthesiologist: Uriel Hathaway DO Anesthesia: general endotracheal Specimen: 1. Falciform 2. Biliary cystadenoma 3. Liver cyst fluid for bilirubin, culture and cytology Estimated blood loss: 20 cc for my portion Drains: none Findings: Flimsy omental adhesions to the left lower quadrant anterior abdominal wall. Large (~10 x5 x 5 cm) cystic lesion adjacent to the gallbladder fossa, below falciform ligament and anterior tothe hilar structure. Dense omental and duodenal adhesions to the complex hepatic cystic lesion. Biliary cystic lesion with bilious, purulent fluid and exophytic polypoid mass on posterior wall of thecyst measuring ~ 3 cm Indications: Ms Ruelas is a 41 year old female who was found on imaging to have an enlarging, complex cystic mass near the gallbladder fossa and the hilar structures of the liver. Imaging studies suggested biliary cystadenoma versus chronic biloma after remote cholecystectomy. She was also noted on ERCP to have an intraluminal mass felt to be within the right hepatic duct that was biopsied and found to be consistent with acute on chronic inflammation, fibrin and reactive ductal epithelial cell. Given the enlarging cystic mass and mass within the biliary tree, Dr Sarmiento recommended enucleation of the cystic mass and common bile duct exploration and excision of the bile duct mass. He discussed the risks of surgery including bleeding, infection, injury to surrounding structure, need for additional procedures and she was willing to proceed. I was asked to assist intra-operatively with the procedure and personally discussed surgical plans with the patient, discussing initial diagnosticlaparoscopy and bilateral transversus abdominal plane blocks. We again discussed risks of surgery and she was willing to proceed. Details of Procedure: The patient was identified in the pre-operative holding area. Informed consent was verified. She was taken to the operating room. Pre-operative antibiotic prophylaxis with 900 mg of clindamycin was administered and SCDs were placed. She was placed on the operating room table in supine position withboth arms extended. General endotracheal anesthesia was then administered and then an orogastric tube, an arterial line, a central line, and a reyes catheter were placed. The abdomen was prepped and draped in the usual sterile fashion. Time- out was then performed, verifying the correct patient, position, and procedure. A 5 mm incision was made in the left upper quadrant in the mid clavicular line and the abdomen was entered under direct visualization utilizing the optical separator. The abdomen was insufflated to 15 mm Hg and the laparoscope was introduced in the abdomen. There were no injuries noted from initialtrocar placement. We then examined the abdominal cavity and noted a flimsy omental adhesion to the anterior abdominal wall in the left lower quadrant. Omental adhesions were noted to a bulging mass below the falciform ligament at the liver edge. Flimsy adhesions between the liver capsule and the anterior abdominal wall were also noted. There was no evidence of metastatic disease or other abnormalities. Bilateral transversus abdominus plane blocks were then performed with 40 cc of a mixture of 1% lidocaine and 0.5% bupivacaine in the right and left abdomen for a total of 80 cc. This completed the laparoscopic portion of the procedure, so the laparoscopic instruments were passed off the field. A generous right upper quadrant incision was made sharply 2 fingerbreaths below the costal margin. The incision was deepened through the subcutaneous tissue and abdominal wall musculature with electrocautery. We then placed a Harper retractor to allow for adequate exposure. The falciform ligamentwas divided with the Caiman device and passed off as a specimen. The falciform ligament was then divided along the liver surface towards the hepatic veins. Flimsy adhesions between the anterior surface of the liver and the diaphragm were divided with electrocautery. Ultrasound examination of the liver was then performed, revealing a complex cystic mass adjacent to the gallbladder fossa and overlying the portal structures. The mass was approximately 10 x 5 x 5 cm with a complex- appearing multiloculated cystic intraluminal mass measuring ~3 cm. No other lesions were noted throughout the liver. We began by lysing the omental adhesions between the liver edge, cystic mass and the omentum with acombination of electrocautery and sharp dissection. The mass was adherent to the lateral wall of the duodenum. A plane was developed medially towards the hilar structures, at which time the inferior margin of the cystic mass was encircled and was able to be from the duodenum. Dr Sarmiento s crubbed in to the procedure at that time. I then assisted him in enucleation of the cystic mass from the liver edge. We began the enucleation at the liver edge just lateral to the falciform ligament.The cyst was decompressed revealing bilious and purulent appearing fluid, which was sampled for culture, cytology and assessment of bilirubin. Within the lumen, a polypoid, exophytic mass was identified on the medial/posterior wall measuring ~3 cm. The cyst was then enucleated from the liver parenchyma using electrocautery and use of the Caiman device. In doing so, dissection was carried down towards the hilar structures using the cyst wall as the plane for dissection. Bleeding from branches ofthe right portal vein were controlled with 5-0 Prolene suture and other bleeding sites controlled with 3-0 silk sutures. I assisted in enucleation of approximately 75% of the cystic lesion before turning the patient over to Dr Yolanda Shea who completed the rest of the procedure. Details of the remainder of the surgical procedure can be found in his operative dictation. Complications: none for my portion Drs. Sarmiento and Marsha were required as co-surgeons due to the complexity of the operation as there were no capable residents available. As the attending surgeon, I was present and scrubbed for the entire duration of my portion of the procedure. Diamond Larson MD * Anesthesia Attestation - Uriel Hathaway DO - 07/30/2021 11:01 AM EDT Anesthesia Attestation ATTESTATION OF INFORMED CONSENT FOR ANESTHESIA Anesthesia options were discussed with the patient and/or legal printing sales representative. The risks, benefits and alternatives were reviewed. Questions regarding anesthesia were answered. Patient and/or legal printing sales representative knows such anesthetics and procedures may be performed by Resident physicians, Certified Anesthesiologist Assistants, or Certified Nurse Anesthetists under the supervision of a physician. The patient /or the patient s legal representativeagree with the plan for anesthesia. * Blood Attestation - Uriel Hathaway DO - 07/30/2021 11:01 AM EDT Blood Attestation ATTESTATION OF INFORMED CONSENT FOR BLOOD The transfusion of blood and/or blood components were discussed with the patient and/or legal printing sales representative. The risks, benefits and alternatives were reviewed. Questions regarding blood transfusions were answered. The patient /or the patient s legal printing sales representative agree with the plan for transfusion of blood and/or blood components. documented in this [id number] Note* Care Plan Note - Antoinette Elmore RN - 08/03/2021 4:53 PM EDT Problem: Routine Care: Goal: Patient care will be managed and maintained throughout hospital stay per unit specific routine care procedure Outcome: Progressing Note: Call jc within reach. Problem: Safety: Goal: Patient will remain free of falls during hospital stay Outcome: Progressing Note: Bed alarm in place Goal: Free from injury during hospitalization Outcome: Progressing Problem: Acute Pain: Goal: Ability to identify pain intensity on a pain scale and rate it consistently will be achieved and maintained Outcome: Progressing Note: PRN pain medications administered per order. Goal: Understanding of proper administration and use of medicines will be achieved Outcome: Progressing Goal: Acceptable level of pain which allows the patient to achieve functional outcome goals Outcome: Progressing Goal: Ability to identify factors that manage or decrease pain will be achieved Outcome: Progressing Problem: VTE Prophylaxis: Goal: Will be free of DVT Outcome: Progressing Problem: Discharge Planning: Goal: Discharge needs of the adult patient will be met Outcome: Progressing [id number] Consult note* Robert Lavinia, PT - 08/03/2021 4:22 PM EDT PHYSICAL THERAPY PROGRESS SUMMARY Patient seen from 905 to 932 on 8A unit for 27 minute treatment. SUBJECTIVE: Patient Subjective/Goals: I have a lot of stairs OBJECTIVE: Appearance: Pt supine in bed, IV, JANETT Behavior: pleasant and cooperative Pain: Site/Location: none; Pain Scale: 0/10 Pain Relief Interventions Implemented: None required; No pain at this time Mobility NA Dep Max Mod Min CG CS DS AL I Comment Supine to sit x Sit to/from stand x Walking on level surface x 300 feet with no device Gait Analysis: slow annemarie, decreased step length, mild unsteady, guarded Stairs x 3 stairs x4 with one LOB, cues for ascending with one rail and descending with 2 hands on rail, step to gait pattern for safety Stand to sit x Functional Endurance: Fair BP 126/67 (BP Location: right arm) Pulse 79 Temp 98.2 F (36.8 C) (Oral) Resp 18 Ht 5' 10 (1.778 m) Wt 212 lb (96.2 kg) LMP (Within Months) SpO2 100% BMI 30.42 kg/m Sitting Balance: Static:good Dynamic:good Standing Balance: Static: good without assistive device Dynamic:fair without assistive device Patient/Family Education: Instructed Patient in roles, goals, treatment plan: demonstrated good verbal understanding. Pt performed seated (B)LE AP, LAQ, and marches 1x10 reps with education on technique and frequency including rationale for performance Pt performed toileting mod (I) and teeth brushing with supervision Discussed benefits of abdominal binder wear and how to don/doff Patient up in chair with call light in reach. Mod falls per nursing DME: With Patients permission ordered no equipment via [employer] Order. If any questions contact [facility] DME Provider at [phone]. 9 Clicks Basic Mobility PT 08/03/2021 Difficulty turning over in bed 4 Difficulty sitting down and standing up from a chair with arms 3 Difficulty moving from lying on back to sitting on the side of the bed 3 Help from another person moving to and from bed to a chair 3 Help from another person to walk in hospital room 3 Help from another person climbing 3-5 steps with a railing 3 PT 6 Clicks Score 19 6 Click Score Guidelines: 1 - Total = Requires total assistance, or cannot do at all. 2 - A lot = Requires a lot of help (maximun to moderate assistance) Can use assistive devices. 3 - A little = Requires a little help (supervision, minimal assistance) Can use assistive devices. 4 - None = Does not require any help and does the activity independently. Can use assistive devices. ASSESSMENT: Patient is functionally appropriate for discharge home once medically cleared. Will continue to follow patient while in hospital as appropriate. Revised Goals: Patient will achieve acceptable level of pain control to allow participation in therapy. MET Patient will increase bed mobility to modified independent NOT MET Patient will perform sit to/from stand with rolling walker with modified independent NOT MET Patient will ambulate 150 feet with rolling walker with modified independent NOT MET Patient will ascend/descend 30(6 ) stairs with R rail(s) and cane with minimal assistance NOT MET Patient will increase ROM/Strength/Endurance/Balance to allow for above goals. PART MET Patient/Family independent with exercise program/precautions. NOT MET PLAN: Will follow established Plan of Care Lavinia Jones PT , DPT, CLT #[phone] NA = Not Assessed, I = Independent, AL = Modified Independent, Sup = Supervised, Set up = Physical Assistance for Set-up Only, Min = Minimal Assistance, Mod = Moderate Assistance, Max = Maximal assistance; Dep = Dependent; AROM = Active Range of Motion; PROM = Passive Range of Motion; MMT = Manual Muscle Test [id number] Consult note* Lavinia Jones PT - 08/03/2021 4:22 PM EDT PHYSICAL THERAPY PROGRESS SUMMARY Patient seen from 905 to 932 on 8A unit for 27 minute treatment. SUBJECTIVE: Patient Subjective/Goals: I have a lot of stairs OBJECTIVE: Appearance: Pt supine in bed, IV, JANETT Behavior: pleasant and cooperative Pain: Site/Location: none; Pain Scale: 0/10 Pain Relief Interventions Implemented: None required; No pain at this time Mobility NA Dep Max Mod Min CG CS DS AL I Comment Supine to sit x Sit to/from stand x Walking on level surface x 300 feet with no device Gait Analysis: slow annemarie, decreased step length, mild unsteady, guarded Stairs x 3 stairs x4 with one LOB, cues for ascending with one rail and descending with 2 hands on rail, step to gait pattern for safety Stand to sit x Functional Endurance: Fair BP 126/67 (BP Location: right arm) Pulse 79 Temp 98.2 F (36.8 C) (Oral) Resp 18 Ht 5' 10 (1.778 m) Wt 212 lb (96.2 kg) LMP (Within Months) SpO2 100% BMI 30.42 kg/m Sitting Balance: Static:good Dynamic:good Standing Balance: Static: good without assistive device Dynamic:fair without assistive device Patient/Family Education: Instructed Patient in roles, goals, treatment plan: demonstrated good verbal understanding. Pt performed seated (B)LE AP, LAQ, and marches 1x10 reps with education on technique and frequency including rationale for performance Pt performed toileting mod (I) and teeth brushing with supervision Discussed benefits of abdominal binder wear and how to don/doff Patient up in chair with call light in reach. Mod falls per nursing DME: With Patients permission ordered no equipment via [employer] Order. If any questions contact [facility] DME Provider at [phone]. 6 Clicks Basic Mobility PT 08/03/2021 Difficulty turning over in bed 4 Difficulty sitting down and standing up from a chair with arms 3 Difficulty moving from lying on back to sitting on the side of the bed 3 Help from another person moving to and from bed to a chair 3 Help from another person to walk in hospital room 3 Help from another person climbing 3-5 steps with a railing 3 PT 6 Clicks Score 19 6 Click Score Guidelines: 1 - Total = Requires total assistance, or cannot do at all. 2 - A lot = Requires a lot of help (maximun to moderate assistance) Can use assistive devices. 3 - A little = Requires a little help (supervision, minimal assistance) Can use assistive devices. 4 - None = Does not require any help and does the activity independently. Can use assistive devices. ASSESSMENT: Patient is functionally appropriate for discharge home once medically cleared. Will continue to follow patient while in hospital as appropriate. Revised Goals: Patient will achieve acceptable level of pain control to allow participation in therapy. MET Patient will increase bed mobility to modified independent NOT MET Patient will perform sit to/from stand with rolling walker with modified independent NOT MET Patient will ambulate 150 feet with rolling walker with modified independent NOT MET Patient will ascend/descend 30(6 ) stairs with R rail(s) and cane with minimal assistance NOT MET Patient will increase ROM/Strength/Endurance/Balance to allow for above goals. PART MET Patient/Family independent with exercise program/precautions. NOT MET PLAN: Will follow established Plan of Care Lavinia Jones, PT , DPT, CLT #[phone] NA = Not Assessed, I = Independent, AL = Modified Independent, Sup = Supervised, Set up = Physical Assistance for Set-up Only, Min = Minimal Assistance, Mod = Moderate Assistance, Max = Maximal assistance; Dep = Dependent; AROM = Active Range of Motion; PROM = Passive Range of Motion; MMT = Manual Muscle Test * Sharee Herndon, OT - 08/03/2021 11:15 AM EDT Occupational Therapy Progress Summary Patient seen from 1057 to 1110 on 8A unit, Room 806-1 for 13 minutes. SUBJECTIVE: Patient Subjective: I'm a little dizzy. Patient Identified Goal(s): Return home. OBJECTIVE: Appearance: supine in bed, hospital gown and hospital pants, PIV, JANETT drain Alertness: WFL Affect: WNL Cooperation/Behavior: Appropriate dialogue with therapist and Pleasant and cooperative Communication: WFL Pain: 3/10 R side of abdomen.surgical site Pain Relief Interventions Implemented: Rest and RN aware and reports patient received medication according to time schedule Cognition: A x O x 3, follows commands consistently. UE Status: BUE AROM WFL Self Care: Supervision required 2/2 dizziness. Assistance Level NA Dep Max Mod Min CG CS DS AL I Set-Up Comment Feeding x Grooming/Hygiene x Bathing:UB x Bathing:LB x Dressing:UB x Dressing: LB x Toileting x Transfers/Bed Mobility: Assistance Level NA Dep Max Mod Min CG CS DS AL I Set-Up Comment Toilet Transfers x Bed Transfers x Bed Mobility x Dynamic standing x Endurance for Self Care: Good Static Sitting Balance: WFL Dynamic Sitting Balance: WFL Patient/Family Education: Instructed patient in roles of therapy Patient up in bed with call light in reach. . DME: With Patients permission ordered no equipment via [employer] Order. If any questions contact [facility] DME Provider at [phone]. Progressive Mobility Level: 4 6 Clicks Daily Activity OT 08/03/2021 Help from another person Eating meals 4 Help from another person taking care of personal grooming 4 Help from another person bathing 3 Help from another person putting on and taking off regular upper body clothing 4 Help from another person putting on and taking off regular lower body clothing 3 Help from another person toileting 3 OT 6 Clicks Score 21 6 Click Score Guidelines: 1 - Unable = Total/Dependent Assist 2 - A lot = Max/Moderate Assist 3 - A little = Minimum/Contact Guard Assist/Supervision 4 - Non = Modified [place]/Independent ASSESSMENT: Patient is functionally appropriate for discharge home once medically cleared. Will continue to follow patient while in hospital as appropriate. Goals met as follows: Patient will dress lower body with Modified Independent NOT MET Patient will perform bed mobility with Modified Independent MET Patient will perform toileting with Modified Independent NOT MET Patient will perform commode transfers with Modified Independent NOT MET Patient will increase standing dynamic balance to mod I for ADLs NOT MET Patient will increase endurance sufficient to perform morning ADL routine without seated rest breaks MET Revised goals: Goals revised today 08/03/2021 for 1-2x/wk as indicated below. Patient will dress lower body with Modified Independent Patient will perform toileting with Modified Independent Patient will perform commode transfers with Modified Independent Patient will increase standing dynamic balance to mod I for ADLs PLAN: Will continue with POC per goals as indicated above. Sharee Herndon OTR/L NA = Not Assessed, I = Independent, AL = Modified Independent, Sup = Supervised, Set up = Physical Assistance for Set-up Only, Min = Minimal Assistance, Mod = Moderate Assistance, Max = Max assistance; Dep = Dependent; AROM = Active Range of Motion;PROM=Passive Rangeof Motion; MMT = Manual Muscle Test; UB = Upper Body; LB = Lower Body * Zoya Anna PT - 08/01/2021 3:20 PM EDT PHYSICAL THERAPY PROGRESS SUMMARY Patient seen from 1452 to 1520 on 8A unit for 28 minute treatment. SUBJECTIVE: Patient Subjective/Goals: It feels good to get up and get out OBJECTIVE: Appearance: drain x 1, reyes, IV, CAR WASH MANAGER Behavior: Awake, pleasant, cooperative, agreeable to therapy Pain: Site/Location: stomach; Pain Scale: 6/10 Pain Relief Interventions Implemented: Positioning and Rest, pt utilizes CAR WASH MANAGER PRN, RN aware Mobility NA Dep Max Mod Min CG CS DS AL I Comment Roll to right sidelying x Roll to left sidelying x Sidelying to sit x V/t cues for log roll Transfers x Pt ambulatory and able to take steps to turn, performs turns during ambulation with CGA Sit to/from stand x Cues for technique/hand placement, RW Multiple reps Walking on level surface 20 feet with rolling walker - performs two turns 50 feet with rolling walker - performs two turns Gait Analysis: slow antalgic gait, flexed posture Stairs x Deferred d/t safety concerns Sit to Supine x V/t cues for log roll, increased time Functional Endurance: Impaired - pain Instructed in and performs 5 reps; -Incentive spirometer Sitting Balance: Static:good sitting EOB, no UE support Dynamic:good, able to scoot EOB with supervision and minimal use of UEs Standing Balance: Static: good B UE support on walker, CS, at least 30 sec Dynamic:fair (+), see ambulation Therex: Pt instructed in and performs ~5 reps for understanding of education -LAQ, AP, seated marches - B LE Patient/Family Education: Instructed Patient in roles, goals, treatment plan: demonstrated good verbal understanding. Pt instructed to perform seated therex when up in chair, encouraged to transfer to chair in eveningfor at least 1-2 hours as tolerated. Pt instructed to call for assist for OOB mobility Patient up in bed with call light in reach. Alarm intact DME: Pt does not own DME - will assess needs, likely would benefit from wheeled walker 6 Clicks Basic Mobility PT 08/01/2021 Difficulty turning over in bed 3 Difficulty sitting down and standing up from a chair with arms 3 Difficulty moving from lying on back to sitting on the side of the bed 3 Help from another person moving to and from bed to a chair 3 Help from another person to walk in hospital room 3 Help from another person climbing 3-5 steps with a railing 2 PT 6 Clicks Score 17 6 Click Score Guidelines: 1 - Total = Requires total assistance, or cannot do at all. 2 - A lot = Requires a lot of help (maximun to moderate assistance) Can use assistive devices. 3 - A little = Requires a little help (supervision, minimal assistance) Can use assistive devices. 4 - None = Does not require any help and does the activity independently. Can use assistive devices. ASSESSMENT: Pt demonstrates improving ambulation distance and tolerance for mobility. Pt continues to mobilize below baseline level and is limited by pain and endurance. Pt with 30 steps to enter home and has support from spouse. Anticipate pt mobility will continue to improve with additional acute PT sessionsand will reach appropriate level of mobility for home DC. Will continue to follow and update pt progress towards the following goals: Goals (to be achieved by discharge from acute care): ONGOING IF NOT MET Patient will achieve acceptable level of pain control to allow participation in therapy. PART MET Patient will increase bed mobility to modified independent NOT MET Patient will perform sit to/from stand with rolling walker with modified independent NOT MET Patient will ambulate 150 feet with rolling walker with modified independent NOT MET Patient will ascend/descend 30(6 ) stairs with R rail(s) and cane with minimal assistance NOT MET Patient will increase ROM/Strength/Endurance/Balance to allow for above goals. PART MET Patient/Family independent with exercise program/precautions. NOT MET PLAN: Will follow established Plan of Care; Patient to be seen 5-7 times a week Zoya Anna PT NA = Not Assessed, I = Independent, AL = Modified Independent, Sup = Supervised, Set up = Physical Assistance for Set-up Only, Min = Minimal Assistance, Mod = Moderate Assistance, Max = Maximal assistance; Dep = Dependent; AROM = Active Range of Motion; PROM = Passive Range of Motion; MMT = Manual Muscle Test * Josephine Hunter, OT - 07/31/2021 1:59 PM EDTAssociated Order(s): IP OCCUPATIONAL THERAPY SERVICE REQUEST OCCUPATIONAL THERAPY INITIAL EVALUATION Patient seen from 1359 to 1418 on 8A unit for 19 minutes. Reason for Admit: scheduled procedure Diagnosis: cyst of gallbladder Precautions/Activity Order: Falls, progressive mobility Procedures this admit: 07/30/21: Diagnostic laparoscopy Exploratory laparotomy, Lysis of adhesions Enucleation biliary cyst adenoma Common bile duct exploration Biliary endoscopy Cholangiogram Yovani-en-y hepaticojejunostomy x 2, vascularized omental pledget Past Medical and Surgical History: PMH: Past Medical History: Diagnosis Date Anxiety Depression GERD (gastroesophageal reflux disease) HTN (hypertension) PSH: Past Surgical History: Procedure Laterality Date CHOLECYSTECTOMY ENDOSCOPIC ULTRASOUND, UPPER N/A 04/05/2021 Procedure: ENDOSCOPIC ULTRASOUND, UPPER, GENERAL ANESTHESIA; Surgeon: Leobardo Barry MD; Location: [facility]; Service: Gastroenterology ERCP N/A 04/08/2021 Procedure: ERCP, GENERAL ANESTHESIA; Surgeon: Leobardo Barry MD; Location: [facility]; Service: Gastroenterology ERCP N/A 06/16/2021 Procedure: ERCP, GENERAL ANESTHESIA; Surgeon: Leobardo Barry MD; Location: [facility]; Service: Gastroenterology SUBJECTIVE: Patient Subjective: I need a nap Patient Identified Goal(s): Feel better and go home Home Living Situation Prior Functional Status: Independent Living 30 steps to enter with rails. 0 steps to bedroom/bathroom Assistance available: Spouse can assist PRN Equipment available: none OBJECTIVE: Patient Identification: patient's id band and date of . Risks and benefits of occupational therapy: Patient informed of risks and benefits of treatment Appearance: Oxygen, IV, CAR WASH MANAGER, Drain JANETT and Reyes Alertness: Drowsy Affect: flat Cooperation/Behavior: cooperative Communication: Able to express needs with increased processing time Pain: Pain ratin/10, Location: abdomen Pain Relief Interventions Implemented: Positioning and activity Self Care: Assistance Level Dep Max Mod Min CG CS DS AL I Set-Up Comment Feeding x Grooming/Hygiene x Standing sink side Bathing:UB x Anticipated, recommend seated Bathing:LB x Anticipated, recommend seated Dressing:UB x Dressing: LB x Socks Toileting x Reyes Transfers/Bed Mobility: Assistance Level Dep Max Mod Min CG CS DS AL I Set-Up Comment Toilet Transfers Bed Transfers x Bed Mobility x In room with rolling walker Functional mobility Endurance for Self Care: Fair Static Sitting Balance: Good Dynamic Sitting Balance: N/T UE Motor: Not formally tested however functional for basic ADLs Vision/Perception: N/T Cognition: Orientation: Oriented to person, place, date and situation Follows Commands: WFL and one step commands Attention: Appears limited by lethargy Memory: Needs further assessment Problem Solving: Needs further assessment Safety/Judgement: insight beginning to develop Patient/Family Education: Instructed patient in roles of therapy, benefits of out of bed activity, support use during coughing for pain control, use of call jc for fall prevention Patient up in bed with call light in reach. Bed alarm on 6 Clicks Daily Activity OT 07/31/2021 Help from another person Eating meals 3 Help from another person taking care of personal grooming 3 Help from another person bathing 2 Help from another person putting on and taking off regular upper body clothing 3 Help from another person putting on and taking off regular lower body clothing 2 Help from another person toileting 1 OT 6 Clicks Score 14 6 Click Score Guidelines: 1 - Unable = Total/Dependent Assist 2 - A lot = Max/Moderate Assist 3 - A little = Minimum/Contact Guard Assist/Supervision 4 - Non = Modified [place]/Independent ASSESSMENT: Anticipate patient will be appropriate for discharge home following 3-4 acute Occupational Therapy sessions. Will continue to follow patient while in hospital as appropriate. Rehabilitation Potential: Good Problem List: decreased ADLs, decreased endurance, decreased functional transfers/mobility, impaired balance, decreased cognition and decreased functional activity tolerance Goals (to be achieved by discharge from acute care): Patient will dress lower body with Modified Independent Patient will perform bed mobility with Modified Independent Patient will perform toileting with Modified Independent Patient will perform commode transfers with Modified Independent Patient will increase standing dynamic balance to mod I for ADLs Patient will increase endurance sufficient to perform morning ADL routine without seated rest breaks PLAN: Shahla Mark Anthony Ruelas will be seen 1-2 times a week. Treatment to include: Functional AROM/Strengthening, functional mobility training, ADL retraining, functional endurance activities, cognitive retraining, functional task simulation, adaptive equipment / compensatory strategy training and patient / family education and discharge planning able to discuss the evaluation findings and treatment plan with the patient/family. The patient/family did participate in the development of plan and goals. Josephine Hunter, OT NA = Not Assessed, I = Independent, AL = Modified Independent, Sup = Supervised, Set up = Physical Assistance for Set-up Only, Min = Minimal Assistance, Mod = Moderate Assistance, Max = Max assistance; Dep = Dependent; AROM = Active Range of Motion;PROM=Passive Rangeof Motion; MMT = Manual Muscle Test; UB = Upper Body; LB = Lower Body * LayHeladio tolliver, PT - 07/31/2021 1:32 PM EDTAssociated Order(s): IP PHYSICAL THERAPY SERVICE REQUEST PHYSICAL THERAPY ACUTE EVALUATION Referral received, chart reviewed. Patient seen from 1230 to 1300 on 8A 806-01 unit for 30 minutes. Admit date/time: 07/30/2021 8:05 AM Reason for Admit: Scheduled Procedure Diagnosis: Cyst of Gallbladder Precautions: High Fall Full Code Clear Liquid Diet Progressive Mobility Procedures this admit: 07/30/[address] Sarmiento and Dr. Larson Diagnostic laparoscopy Exploratory laparotomy, Lysis of adhesions Enucleation biliary cyst adenoma Common bile duct exploration Biliary endoscopy Cholangiogram Yovani-en-y hepaticojejunostomy x 2, vascularized omental pledget Past Medical and Surgical History: PMH: Past Medical History: Diagnosis Date Anxiety Depression GERD (gastroesophageal reflux disease) HTN (hypertension) PSH: Past Surgical History: Procedure Laterality Date CHOLECYSTECTOMY ENDOSCOPIC ULTRASOUND, UPPER N/A 04/05/2021 Procedure: ENDOSCOPIC ULTRASOUND, UPPER, GENERAL ANESTHESIA; Surgeon: Leobardo Barry MD; Location: [facility]; Service: Gastroenterology ERCP N/A 04/08/2021 Procedure: ERCP, GENERAL ANESTHESIA; Surgeon: Leobardo Barry MD; Location: [facility]; Service: Gastroenterology ERCP N/A 06/16/2021 Procedure: ERCP, GENERAL ANESTHESIA; Surgeon: Leobardo Barry MD; Location: [facility]; Service: Gastroenterology Identification was verified by patient verbalizing his/her name and date of . Risks and Benefits of physical therapy: Patient informed of risks and benefits of treatment SUBJECTIVE: Patient Subjective: The doctor said I have to work with you Patient Identified Goal(s): To return home SENIOR ACCOUNT MANAGER Status: + drive, I 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 0 steps to bedroom/bathroom Assistance available: Spouse can assist PRN Equipment available: none OBJECTIVE: Appearance: Oxygen, IV, CAR WASH MANAGER, Drain and Reyes Behavior: Drowsy Oriented x 4 Follows multple step commands consistently and without cues Pain: Site/Location: abdomen; Pain Scale: 7/10 Pain Relief Interventions Implemented: Encouraged patient to use CAR WASH MANAGER Passive ROM: Not formally tested however observed WFL for basic level of mobility Strength/Active ROM: Not formally tested however observed WFL for basic level of mobility and Grossly at least 3/5 throughout Mobility: Rolling to left: minimal assistance Sidelying to sit: moderate assistance Sitting balance: Good Sit to stand: contact guard Transfers: contact guard stand pivot RW Endurance: Impaired Patient/Family Education: Instructed Patient in roles of therapy. Pt educated on logroll technique for mobilizing in/out of bed and review of general abdominal precautions. Pt can benefit from further reinforcement. Patient up in chair with call light in reach. Chair alarm intact. DME: With Patients permission ordered no equipment via [employer] Order. If any questions contact [facility] DME Provider at [phone]. 6 Clicks Basic Mobility PT 07/31/2021 Difficulty turning over in bed 2 Difficulty sitting down and standing up from a chair with arms 3 Difficulty moving from lying on back to sitting on the side of the bed 2 Help from another person moving to and from bed to a chair 3 Help from another person to walk in hospital room 3 Help from another person climbing 3-5 steps with a railing 2 PT 6 Clicks Score 15 6 Click Score Guidelines: 1 - Total = Requires total assistance, or cannot do at all. 2 - A lot = Requires a lot of help (maximun to moderate assistance) Can use assistive devices. 3 - A little = Requires a little help (supervision, minimal assistance) Can use assistive devices. 4 - None = Does not require any help and does the activity independently. Can use assistive devices. ASSESSMENT: Shahla Ruelas is a 41 year old yo female s/p Diagnostic laparoscopy Exploratory laparotomy, Lysis of adhesions Enucleation biliary cyst adenoma Common bile duct exploration Biliary endoscopy Cholangiogram Yovani-en-y hepaticojejunostomy x 2, vascularized omental pledget Shahla is currently mobilizing below baseline with ~30 steps to enter her home. She can benefit from skilled acute therapy services prior to DC to home setting with assist to address functional deficits and improve functional independence. Anticipate patient will be appropriate for discharge home following 2-3 acute Physical Therapy sessions. Will continue to follow patient while in hospital as appropriate. Recommend Home Physical Therapy. Problems: Pain Decreased ROM/strength Decreased functional mobility Decreased endurance Decreased balance Decreased education in exercise/precautions Rehabilitation Potential: Good Goals (to be achieved by discharge from acute care): Patient will achieve acceptable level of pain control to allow participation in therapy. Patient will increase bed mobility to modified independent Patient will perform sit to/from stand with rolling walker with modified independent Patient will ambulate 150 feet with rolling walker with modified independent Patient will ascend/descend 30(6 ) stairs with R rail(s) and cane with minimal assistance Patient will increase ROM/Strength/Endurance/Balance to allow for above goals. Patient/Family independent with exercise program/precautions. PLAN OF CARE: Frequency: Patient to be seen 5-7 times a week Interventions: Functional mobility ROM/Strengthening Home exercise program Discharge planning and equipment ordering as needed Patient /Family education The evaluation findings and treatment plan were discussed with the patient/family. The patient/family indicated understanding and agreement with the plan. Heladio Chun PT NA = Not Assessed, I = Independent, AL = Modified Independent, Sup = Supervised, Set up = Physical Assistance for Set-up Only, Min = Minimal Assistance, Mod = Moderate Assistance, Max = Max assistance; Dep = Dependent; AROM = Active Range of Motion; PROM = Passive Range of Motion; MMT = Manual Muscle Test; LE = Lower Extremity documented in this [id number] Consult note* Sharee Herndon, OT - 08/03/2021 11:15 AM EDT Occupational Therapy Progress Summary Patient seen from 1057 to 1110 on 8A unit, Room 806-1 for 13 minutes. SUBJECTIVE: Patient Subjective: I'm a little dizzy. Patient Identified Goal(s): Return home. OBJECTIVE: Appearance: supine in bed, hospital gown and hospital pants, PIV, JANETT drain Alertness: WFL Affect: WNL Cooperation/Behavior: Appropriate dialogue with therapist and Pleasant and cooperative Communication: WFL Pain: 3/10 R side of abdomen.surgical site Pain Relief Interventions Implemented: Rest and RN aware and reports patient received medication according to time schedule Cognition: A x O x 3, follows commands consistently. UE Status: BUE AROM WFL Self Care: Supervision required 2/2 dizziness. Assistance Level NA Dep Max Mod Min CG CS DS AL I Set-Up Comment Feeding x Grooming/Hygiene x Bathing:UB x Bathing:LB x Dressing:UB x Dressing: LB x Toileting x Transfers/Bed Mobility: Assistance Level NA Dep Max Mod Min CG CS DS AL I Set-Up Comment Toilet Transfers x Bed Transfers x Bed Mobility x Dynamic standing x Endurance for Self Care: Good Static Sitting Balance: WFL Dynamic Sitting Balance: WFL Patient/Family Education: Instructed patient in roles of therapy Patient up in bed with call light in reach. . DME: With Patients permission ordered no equipment via [employer] Order. If any questions contact [facility] DME Provider at [phone]. Progressive Mobility Level: 4 6 Clicks Daily Activity OT 08/03/2021 Help from another person Eating meals 4 Help from another person taking care of personal grooming 4 Help from another person bathing 3 Help from another person putting on and taking off regular upper body clothing 4 Help from another person putting on and taking off regular lower body clothing 3 Help from another person toileting 3 OT 6 Clicks Score 21 6 Click Score Guidelines: 1 - Unable = Total/Dependent Assist 2 - A lot = Max/Moderate Assist 3 - A little = Minimum/Contact Guard Assist/Supervision 4 - Non = Modified [place]/Independent ASSESSMENT: Patient is functionally appropriate for discharge home once medically cleared. Will continue to follow patient while in hospital as appropriate. Goals met as follows: Patient will dress lower body with Modified Independent NOT MET Patient will perform bed mobility with Modified Independent MET Patient will perform toileting with Modified Independent NOT MET Patient will perform commode transfers with Modified Independent NOT MET Patient will increase standing dynamic balance to mod I for ADLs NOT MET Patient will increase endurance sufficient to perform morning ADL routine without seated rest breaks MET Revised goals: Goals revised today 08/03/2021 for 1-2x/wk as indicated below. Patient will dress lower body with Modified Independent Patient will perform toileting with Modified Independent Patient will perform commode transfers with Modified Independent Patient will increase standing dynamic balance to mod I for ADLs PLAN: Will continue with POC per goals as indicated above. Sharee Herndon, OTR/L NA = Not Assessed, I = Independent, AL = Modified Independent, Sup = Supervised, Set up = Physical Assistance for Set-up Only, Min = Minimal Assistance, Mod = Moderate Assistance, Max = Max assistance; Dep = Dependent; AROM = Active Range of Motion;PROM=Passive Rangeof Motion; MMT = Manual Muscle Test; UB = Upper Body; LB = Lower Body [id number] Note* Care Plan Note - Rayshawn Shaw RN - 08/03/2021 1:20 AM EDT Problem: Routine Care: Goal: Patient care will be managed and maintained throughout hospital stay per unit specific routine care procedure Outcome: Progressing Problem: Safety: Goal: Patient will remain free of falls during hospital stay Outcome: Progressing Goal: Free from injury during hospitalization Outcome: Progressing Problem: Acute Pain: Goal: Ability to identify pain intensity on a pain scale and rate it consistently will be achieved and maintained Outcome: Progressing Goal: Understanding of proper administration and use of medicines will be achieved Outcome: Progressing Goal: Acceptable level of pain which allows the patient to achieve functional outcome goals Outcome: Progressing Goal: Ability to identify factors that manage or decrease pain will be achieved Outcome: Progressing Problem: VTE Prophylaxis: Goal: Will be free of DVT Outcome: Progressing Problem: Discharge Planning: Goal: Discharge needs of the adult patient will be met Outcome: Progressing [id number] Note* Care Plan Note - Keiko Zhang RN - 08/02/2021 9:45 AM EDT Problem: Routine Care: Goal: Patient care will be managed and maintained throughout hospital stay per unit specific routine care procedure 08/02/2021 0945 by Keiko Zhang RN Outcome: Progressing 08/02/2021 0944 by Keiko Zhang RN Outcome: Progressing Problem: Safety: Goal: Patient will remain free of falls during hospital stay 08/02/2021 0945 by Keiko Zhang RN Outcome: Progressing 08/02/2021 0944 by Keiko Zhang RN Outcome: Progressing Goal: Free from injury during hospitalization 08/02/2021 0945 by Keiko Zhang RN Outcome: Progressing 08/02/2021 0944 by Keiko Zhang RN Outcome: Progressing Problem: Acute Pain: Goal: Ability to identify pain intensity on a pain scale and rate it consistently will be achieved and maintained 08/02/2021 0945 by Keiko Zhang RN Outcome: Progressing 08/02/2021 0944 by Keiko Zhang RN Outcome: Progressing Goal: Understanding of proper administration and use of medicines will be achieved 08/02/2021 0945 by Keiko Zhang RN Outcome: Progressing 08/02/2021 09 by Keiko Zhang RN Outcome: Progressing Goal: Acceptable level of pain which allows the patient to achieve functional outcome goals 08/02/2021 0945 by Keiko Zhang RN Outcome: Progressing 08/02/2021943 by Keiko Zhang RN Outcome: Progressing Goal: Ability to identify factors that manage or decrease pain will be achieved 08/02/2021 0945 by Keiko Zhang RN Outcome: Progressing 08/02/2021 09 by Keiko Zhang RN Outcome: Progressing Problem: VTE Prophylaxis: Goal: Will be free of DVT 08/02/2021 0945 by Keiko Zhang RN Outcome: Progressing 08/02/2021943 by Keiko Zhang RN Outcome: Progressing Problem: Discharge Planning: Goal: Discharge needs of the adult patient will be met 08/02/2021944 by Keiko Zhang RN Outcome: Progressing 08/02/2021943 by Keiko Zhang RN Outcome: Progressing [id number] Note* Care Plan Note - Dinorah Palencia RN - 08/02/2021 3:21 AM EDT Problem: Routine Care: Goal: Patient care will be managed and maintained throughout hospital stay per unit specific routine care procedure Outcome: Progressing Problem: Alteration in Respiratory Status: Goal: Achieve Optimal Respiratory Status with Minimal Ventilatory/Oxygen Support Outcome: Progressing Problem: Acute Pain: Goal: Ability to identify pain intensity on a pain scale and rate it consistently will be achieved and maintained Outcome: Progressing Problem: Safety: Goal: Patient will remain free of falls during hospital stay Outcome: Progressing Problem: Discharge Planning: Goal: Discharge needs of the adult patient will be met Outcome: Progressing Problem: Routine Care: Goal: Patient care will be managed and maintained throughout hospital stay per unit specific routine care procedure Outcome: Progressing Problem: Safety: Goal: Patient will remain free of falls during hospital stay Outcome: Progressing Goal: Free from injury during hospitalization Outcome: Progressing Problem: Acute Pain: Goal: Ability to identify pain intensity on a pain scale and rate it consistently will be achieved and maintained Outcome: Progressing Goal: Understanding of proper administration and use of medicines will be achieved Outcome: Progressing Goal: Acceptable level of pain which allows the patient to achieve functional outcome goals Outcome: Progressing Goal: Ability to identify factors that manage or decrease pain will be achieved Outcome: Progressing Problem: VTE Prophylaxis: Goal: Will be free of DVT Outcome: Progressing Problem: Discharge Planning: Goal: Discharge needs of the adult patient will be met Outcome: Progressing [id number] Consult note* Zoya Anna, PT - 08/01/2021 3:20 PM EDT PHYSICAL THERAPY PROGRESS SUMMARY Patient seen from 1452 to 1520 on 8A unit for 28 minute treatment. SUBJECTIVE: Patient Subjective/Goals: It feels good to get up and get out OBJECTIVE: Appearance: drain x 1, reyes, IV, CAR WASH MANAGER Behavior: Awake, pleasant, cooperative, agreeable to therapy Pain: Site/Location: stomach; Pain Scale: 6/10 Pain Relief Interventions Implemented: Positioning and Rest, pt utilizes CAR WASH MANAGER PRN, RN aware Mobility NA Dep Max Mod Min CG CS DS AL I Comment Roll to right sidelying x Roll to left sidelying x Sidelying to sit x V/t cues for log roll Transfers x Pt ambulatory and able to take steps to turn, performs turns during ambulation with CGA Sit to/from stand x Cues for technique/hand placement, RW Multiple reps Walking on level surface 20 feet with rolling walker - performs two turns 50 feet with rolling walker - performs two turns Gait Analysis: slow antalgic gait, flexed posture Stairs x Deferred d/t safety concerns Sit to Supine x V/t cues for log roll, increased time Functional Endurance: Impaired - pain Instructed in and performs 5 reps; -Incentive spirometer Sitting Balance: Static:good sitting EOB, no UE support Dynamic:good, able to scoot EOB with supervision and minimal use of UEs Standing Balance: Static: good B UE support on walker, CS, at least 30 sec Dynamic:fair (+), see ambulation Therex: Pt instructed in and performs ~5 reps for understanding of education -LAQ, AP, seated marches - B LE Patient/Family Education: Instructed Patient in roles, goals, treatment plan: demonstrated good verbal understanding. Pt instructed to perform seated therex when up in chair, encouraged to transfer to chair in eveningfor at least 1-2 hours as tolerated. Pt instructed to call for assist for OOB mobility Patient up in bed with call light in reach. Alarm intact DME: Pt does not own DME - will assess needs, likely would benefit from wheeled walker 6 Clicks Basic Mobility PT 08/01/2021 Difficulty turning over in bed 3 Difficulty sitting down and standing up from a chair with arms 3 Difficulty moving from lying on back to sitting on the side of the bed 3 Help from another person moving to and from bed to a chair 3 Help from another person to walk in hospital room 3 Help from another person climbing 3-5 steps with a railing 2 PT 6 Clicks Score 17 6 Click Score Guidelines: 1 - Total = Requires total assistance, or cannot do at all. 2 - A lot = Requires a lot of help (maximun to moderate assistance) Can use assistive devices. 3 - A little = Requires a little help (supervision, minimal assistance) Can use assistive devices. 4 - None = Does not require any help and does the activity independently. Can use assistive devices. ASSESSMENT: Pt demonstrates improving ambulation distance and tolerance for mobility. Pt continues to mobilize below baseline level and is limited by pain and endurance. Pt with 30 steps to enter home and has support from spouse. Anticipate pt mobility will continue to improve with additional acute PT sessionsand will reach appropriate level of mobility for home DC. Will continue to follow and update pt progress towards the following goals: Goals (to be achieved by discharge from acute care): ONGOING IF NOT MET Patient will achieve acceptable level of pain control to allow participation in therapy. PART MET Patient will increase bed mobility to modified independent NOT MET Patient will perform sit to/from stand with rolling walker with modified independent NOT MET Patient will ambulate 150 feet with rolling walker with modified independent NOT MET Patient will ascend/descend 30(6 ) stairs with R rail(s) and cane with minimal assistance NOT MET Patient will increase ROM/Strength/Endurance/Balance to allow for above goals. PART MET Patient/Family independent with exercise program/precautions. NOT MET PLAN: Will follow established Plan of Care; Patient to be seen 5-7 times a week Zoya Anna PT NA = Not Assessed, I = Independent, AL = Modified Independent, Sup = Supervised, Set up = Physical Assistance for Set-up Only, Min = Minimal Assistance, Mod = Moderate Assistance, Max = Maximal assistance; Dep = Dependent; AROM = Active Range of Motion; PROM = Passive Range of Motion; MMT = Manual Muscle Test [id number] Note* Care Plan Note - Dinorah Palencia RN - 08/01/2021 1:42 AM EDT Problem: Routine Care: Goal: Patient care will be managed and maintained throughout hospital stay per unit specific routine care procedure Outcome: Progressing Problem: Alteration in Respiratory Status: Goal: Achieve Optimal Respiratory Status with Minimal Ventilatory/Oxygen Support Outcome: Progressing Problem: Acute Pain: Goal: Ability to identify pain intensity on a pain scale and rate it consistently will be achieved and maintained Outcome: Progressing Problem: Safety: Goal: Patient will remain free of falls during hospital stay Outcome: Progressing Problem: Discharge Planning: Goal: Discharge needs of the adult patient will be met Outcome: Progressing Problem: Routine Care: Goal: Patient care will be managed and maintained throughout hospital stay per unit specific routine care procedure Outcome: Progressing Problem: Safety: Goal: Patient will remain free of falls during hospital stay Outcome: Progressing Goal: Free from injury during hospitalization Outcome: Progressing Problem: Acute Pain: Goal: Ability to identify pain intensity on a pain scale and rate it consistently will be achieved and maintained Outcome: Progressing Goal: Understanding of proper administration and use of medicines will be achieved Outcome: Progressing Goal: Acceptable level of pain which allows the patient to achieve functional outcome goals Outcome: Progressing Goal: Ability to identify factors that manage or decrease pain will be achieved Outcome: Progressing Problem: VTE Prophylaxis: Goal: Will be free of DVT Outcome: Progressing Problem: Discharge Planning: Goal: Discharge needs of the adult patient will be met Outcome: Progressing [id number] Consult note* Josephine Hunter, OT - 07/31/2021 1:59 PM EDTAssociated Order(s): IP OCCUPATIONAL THERAPY SERVICE REQUEST OCCUPATIONAL THERAPY INITIAL EVALUATION Patient seen from 1359 to 1418 on 8A unit for 19 minutes. Reason for Admit: scheduled procedure Diagnosis: cyst of gallbladder Precautions/Activity Order: Falls, progressive mobility Procedures this admit: 07/30/21: Diagnostic laparoscopy Exploratory laparotomy, Lysis of adhesions Enucleation biliary cyst adenoma Common bile duct exploration Biliary endoscopy Cholangiogram Yovani-en-y hepaticojejunostomy x 2, vascularized omental pledget Past Medical and Surgical History: PMH: Past Medical History: Diagnosis Date Anxiety Depression GERD (gastroesophageal reflux disease) HTN (hypertension) PSH: Past Surgical History: Procedure Laterality Date CHOLECYSTECTOMY ENDOSCOPIC ULTRASOUND, UPPER N/A 04/05/2021 Procedure: ENDOSCOPIC ULTRASOUND, UPPER, GENERAL ANESTHESIA; Surgeon: Leobardo Barry MD; Location: [facility]; Service: Gastroenterology ERCP N/A 04/08/2021 Procedure: ERCP, GENERAL ANESTHESIA; Surgeon: Leobardo Barry MD; Location: [facility]; Service: Gastroenterology ERCP N/A 06/16/2021 Procedure: ERCP, GENERAL ANESTHESIA; Surgeon: Leobardo Barry MD; Location: [facility]; Service: Gastroenterology SUBJECTIVE: Patient Subjective: I need a nap Patient Identified Goal(s): Feel better and go home Home Living Situation Prior Functional Status: Independent Living 30 steps to enter with rails. 0 steps to bedroom/bathroom Assistance available: Spouse can assist PRN Equipment available: none OBJECTIVE: Patient Identification: patient's id band and date of . Risks and benefits of occupational therapy: Patient informed of risks and benefits of treatment Appearance: Oxygen, IV, CAR WASH MANAGER, Drain JANETT and Reyes Alertness: Drowsy Affect: flat Cooperation/Behavior: cooperative Communication: Able to express needs with increased processing time Pain: Pain ratin/10, Location: abdomen Pain Relief Interventions Implemented: Positioning and activity Self Care: Assistance Level Dep Max Mod Min CG CS DS AL I Set-Up Comment Feeding x Grooming/Hygiene x Standing sink side Bathing:UB x Anticipated, recommend seated Bathing:LB x Anticipated, recommend seated Dressing:UB x Dressing: LB x Socks Toileting x Reyes Transfers/Bed Mobility: Assistance Level Dep Max Mod Min CG CS DS AL I Set-Up Comment Toilet Transfers Bed Transfers x Bed Mobility x In room with rolling walker Functional mobility Endurance for Self Care: Fair Static Sitting Balance: Good Dynamic Sitting Balance: N/T UE Motor: Not formally tested however functional for basic ADLs Vision/Perception: N/T Cognition: Orientation: Oriented to person, place, date and situation Follows Commands: WFL and one step commands Attention: Appears limited by lethargy Memory: Needs further assessment Problem Solving: Needs further assessment Safety/Judgement: insight beginning to develop Patient/Family Education: Instructed patient in roles of therapy, benefits of out of bed activity, support use during coughing for pain control, use of call jc for fall prevention Patient up in bed with call light in reach. Bed alarm on 6 Clicks Daily Activity OT 07/31/2021 Help from another person Eating meals 3 Help from another person taking care of personal grooming 3 Help from another person bathing 2 Help from another person putting on and taking off regular upper body clothing 3 Help from another person putting on and taking off regular lower body clothing 2 Help from another person toileting 1 OT 6 Clicks Score 14 6 Click Score Guidelines: 1 - Unable = Total/Dependent Assist 2 - A lot = Max/Moderate Assist 3 - A little = Minimum/Contact Guard Assist/Supervision 4 - Non = Modified [place]/Independent ASSESSMENT: Anticipate patient will be appropriate for discharge home following 3-4 acute Occupational Therapy sessions. Will continue to follow patient while in hospital as appropriate. Rehabilitation Potential: Good Problem List: decreased ADLs, decreased endurance, decreased functional transfers/mobility, impaired balance, decreased cognition and decreased functional activity tolerance Goals (to be achieved by discharge from acute care): Patient will dress lower body with Modified Independent Patient will perform bed mobility with Modified Independent Patient will perform toileting with Modified Independent Patient will perform commode transfers with Modified Independent Patient will increase standing dynamic balance to mod I for ADLs Patient will increase endurance sufficient to perform morning ADL routine without seated rest breaks PLAN: Shahla Ruelas will be seen 1-2 times a week. Treatment to include: Functional AROM/Strengthening, functional mobility training, ADL retraining, functional endurance activities, cognitive retraining, functional task simulation, adaptive equipment / compensatory strategy training and patient / family education and discharge planning able to discuss the evaluation findings and treatment plan with the patient/family. The patient/family did participate in the development of plan and goals. Josephine Hunter OT NA = Not Assessed, I = Independent, AL = Modified Independent, Sup = Supervised, Set up = Physical Assistance for Set-up Only, Min = Minimal Assistance, Mod = Moderate Assistance, Max = Max assistance; Dep = Dependent; AROM = Active Range of Motion;PROM=Passive Rangeof Motion; MMT = Manual Muscle Test; UB = Upper Body; LB = Lower Body [id number] Consult note* Heladio Chun, PT - 07/31/2021 1:32 PM EDT Associated Order(s): IP PHYSICAL THERAPY SERVICE REQUEST PHYSICAL THERAPY ACUTE EVALUATION Referral received, chart reviewed. Patient seen from 1230 to 1300 on 8A 806-01 unit for 30 minutes. Admit date/time: 07/30/2021 8:05 AM Reason for Admit: Scheduled Procedure Diagnosis: Cyst of Gallbladder Precautions: High Fall Full Code Clear Liquid Diet Progressive Mobility Procedures this admit: 07/30/[address] Sarmiento and Dr. Larson Diagnostic laparoscopy Exploratory laparotomy, Lysis of adhesions Enucleation biliary cyst adenoma Common bile duct exploration Biliary endoscopy Cholangiogram Yovani-en-y hepaticojejunostomy x 2, vascularized omental pledget Past Medical and Surgical History: PMH: Past Medical History: Diagnosis Date Anxiety Depression GERD (gastroesophageal reflux disease) HTN (hypertension) PSH: Past Surgical History: Procedure Laterality Date CHOLECYSTECTOMY ENDOSCOPIC ULTRASOUND, UPPER N/A 04/05/2021 Procedure: ENDOSCOPIC ULTRASOUND, UPPER, GENERAL ANESTHESIA; Surgeon: Leobardo Barry MD; Location: [facility]; Service: Gastroenterology ERCP N/A 04/08/2021 Procedure: ERCP, GENERAL ANESTHESIA; Surgeon: Leobardo Barry MD; Location: [facility]; Service: Gastroenterology ERCP N/A 06/16/2021 Procedure: ERCP, GENERAL ANESTHESIA; Surgeon: Leobardo Barry MD; Location: [facility]; Service: Gastroenterology Identification was verified by patient verbalizing his/her name and date of . Risks and Benefits of physical therapy: Patient informed of risks and benefits of treatment SUBJECTIVE: Patient Subjective: The doctor said I have to work with you Patient Identified Goal(s): To return home SENIOR ACCOUNT MANAGER Status: + drive, I 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 0 steps to bedroom/bathroom Assistance available: Spouse can assist PRN Equipment available: none OBJECTIVE: Appearance: Oxygen, IV, CAR WASH MANAGER, Drain and Reyes Behavior: Drowsy Oriented x 4 Follows multple step commands consistently and without cues Pain: Site/Location: abdomen; Pain Scale: 7/10 Pain Relief Interventions Implemented: Encouraged patient to use CAR WASH MANAGER Passive ROM: Not formally tested however observed WFL for basic level of mobility Strength/Active ROM: Not formally tested however observed WFL for basic level of mobility and Grossly at least 3/5 throughout Mobility: Rolling to left: minimal assistance Sidelying to sit: moderate assistance Sitting balance: Good Sit to stand: contact guard Transfers: contact guard stand pivot RW Endurance: Impaired Patient/Family Education: Instructed Patient in roles of therapy. Pt educated on logroll technique for mobilizing in/out of bed and review of general abdominal precautions. Pt can benefit from further reinforcement. Patient up in chair with call light in reach. Chair alarm intact. DME: With Patients permission ordered no equipment via [employer] Order. If any questions contact [facility] DME Provider at [phone]. 6 Clicks Basic Mobility PT 07/31/2021 Difficulty turning over in bed 2 Difficulty sitting down and standing up from a chair with arms 3 Difficulty moving from lying on back to sitting on the side of the bed 2 Help from another person moving to and from bed to a chair 3 Help from another person to walk in hospital room 3 Help from another person climbing 3-5 steps with a railing 2 PT 6 Clicks Score 15 6 Click Score Guidelines: 1 - Total = Requires total assistance, or cannot do at all. 2 - A lot = Requires a lot of help (maximun to moderate assistance) Can use assistive devices. 3 - A little = Requires a little help (supervision, minimal assistance) Can use assistive devices. 4 - None = Does not require any help and does the activity independently. Can use assistive devices. ASSESSMENT: Shahla Ruelas is a 41 year old yo female s/p Diagnostic laparoscopy Exploratory laparotomy, Lysis of adhesions Enucleation biliary cyst adenoma Common bile duct exploration Biliary endoscopy Cholangiogram Yovani-en-y hepaticojejunostomy x 2, vascularized omental pledget Shahla is currently mobilizing below baseline with ~30 steps to enter her home. She can benefit from skilled acute therapy services prior to DC to home setting with assist to address functional deficits and improve functional independence. Anticipate patient will be appropriate for discharge home following 2-3 acute Physical Therapy sessions. Will continue to follow patient while in hospital as appropriate. Recommend Home Physical Therapy. Problems: Pain Decreased ROM/strength Decreased functional mobility Decreased endurance Decreased balance Decreased education in exercise/precautions Rehabilitation Potential: Good Goals (to be achieved by discharge from acute care): Patient will achieve acceptable level of pain control to allow participation in therapy. Patient will increase bed mobility to modified independent Patient will perform sit to/from stand with rolling walker with modified independent Patient will ambulate 150 feet with rolling walker with modified independent Patient will ascend/descend 30(6 ) stairs with R rail(s) and cane with minimal assistance Patient will increase ROM/Strength/Endurance/Balance to allow for above goals. Patient/Family independent with exercise program/precautions. PLAN OF CARE: Frequency: Patient to be seen 5-7 times a week Interventions: Functional mobility ROM/Strengthening Home exercise program Discharge planning and equipment ordering as needed Patient /Family education The evaluation findings and treatment plan were discussed with the patient/family. The patient/family indicated understanding and agreement with the plan. Heladio Chun PT NA = Not Assessed, I = Independent, AL = Modified Independent, Sup = Supervised, Set up = Physical Assistance for Set-up Only, Min = Minimal Assistance, Mod = Moderate Assistance, Max = Max assistance; Dep = Dependent; AROM = Active Range of Motion; PROM = Passive Range of Motion; MMT = Manual Muscle Test; LE = Lower Extremity [id number] Note* Care Plan Note - Dinorah Palencia RN - 07/31/2021 2:42 AM EDT Problem: Routine Care: Goal: Patient care will be managed and maintained throughout hospital stay per unit specific routine care procedure Outcome: Progressing Problem: Alteration in Respiratory Status: Goal: Achieve Optimal Respiratory Status with Minimal Ventilatory/Oxygen Support Outcome: Progressing Problem: Acute Pain: Goal: Ability to identify pain intensity on a pain scale and rate it consistently will be achieved and maintained Outcome: Progressing Problem: Safety: Goal: Patient will remain free of falls during hospital stay Outcome: Progressing Problem: Discharge Planning: Goal: Discharge needs of the adult patient will be met Outcome: Progressing Problem: Routine Care: Goal: Patient care will be managed and maintained throughout hospital stay per unit specific routine care procedure Outcome: Progressing Problem: Safety: Goal: Patient will remain free of falls during hospital stay Outcome: Progressing Goal: Free from injury during hospitalization Outcome: Progressing Problem: Acute Pain: Goal: Ability to identify pain intensity on a pain scale and rate it consistently will be achieved and maintained Outcome: Progressing Goal: Understanding of proper administration and use of medicines will be achieved Outcome: Progressing Goal: Acceptable level of pain which allows the patient to achieve functional outcome goals Outcome: Progressing Goal: Ability to identify factors that manage or decrease pain will be achieved Outcome: Progressing Problem: VTE Prophylaxis: Goal: Will be free of DVT Outcome: Progressing Problem: Discharge Planning: Goal: Discharge needs of the adult patient will be met Outcome: Progressing [id number] Nurse Surgical operation note* Irina Marie RN - 07/30/2021 7:58 PM EDT One 5fr stent placed in left hepatic duct, one 8 fr stent placed in accessory duct by Dr. Sarmiento intraoperatively. [id number] Nurse Note* Irina Marie RN - 07/30/2021 7:58 PM EDT One 5fr stent placed in left hepatic duct, one 8 fr stent placed in accessory duct by Dr. Sarmiento intraoperatively. documented in this [id number] Note* Brief Operative Note - Madeleine Hooks MD - 07/30/2021 2:08 PM EDT Brief Operative Note MAIN OR 07 Shahla Ruelas 41 year old female Surgical Contact Serial Number: [id number] Preoperative Diagnosis: Cyst of gallbladder [K82.8] Liver cyst [K76.89] Postoperative Diagnosis: * Cyst of gallbladder [K82.8] * Liver cyst [K76.89] Procedures: Diagnostic laparoscopy Exploratory laparotomy, Lysis of adhesions Enucleation biliary cyst adenoma Common bile duct exploration Biliary endoscopy Cholangiogram Yovani-en-y hepaticojejunostomy x 2, vascularized omental pledget Surgeon(s): Surgeon(s): Diamond Larson MD El-Hayek, Kevin M., MD El-Hayek, Kevin M., MD Staff: Nurse: Morro Valerio Scrub: Mercedes Soliman; Anya Fletcher; Juan Jon RN Orientation & Mobility Specialist Nurse: Vitaly Reyes RN; Kraig Espinal; Rosa Seo RN; Yumiko Haji, VITA; Irina Marie, VITA; Juany Higginbotham RN Wood Die Maker: Madeleine Hooks MD Anesthesia: General Anesthesiologist: Neil Rodriguez MD; Uriel Hathaway DO CAA: Rina Childress MANAGER CORE: Adrian Bermudez CASING SPLITTER-MANAGER CORE; Jewel Vogel CASING SPLITTER-MANAGER CORE; Mariel Ireland CASING SPLITTER-MANAGER CORE Associate Theatre Professor: Al Mascorro MD; Jean Ojeda MD Specimen(s): ID Type Source Tests Collected by Time Destination 1 : Falciform Tissue Liver SPECIMEN FOR SURGICAL PATH Dennis Sarmiento MD 07/30/2021 1554 2 : biliary cystadenoma Tissue Liver SPECIMEN FOR SURGICAL PATH Dennis Sarmiento MD 07/30/2021 1719 3 : right hepatic duct polyp Tissue Liver SPECIMEN FOR SURGICAL PATH Dennis Sarmiento MD 07/30/2021 1813 A : liver cyst fluid Fluid Fluid, Cyst (Cytology) ANAEROBIC CULTURE, MISC, AFB CULTURE/SMEAR, CYTOLOGY FLUID Dennis Sarmiento MD 07/30/2021 1619 Estimated Blood Loss: 1300cc Lines/Drains: CVC - Single Lumen: 07/30/21 Central Line Right IJ (Active) Peripheral IV Access: 07/30/21 1213 18 gauge Right Hand (Active) Peripheral IV Access: 07/30/21 1217 16 gauge Left Hand (Active) Surgical Drain Esdras Saravia -- Round # 1 10 fr Right;Upper (Active) Temporarily Retained Foreign Object: No Findings: Large biliary cystadenoma with dense adhesions to omentum, stomach and duodenum. Cystadenoma involving bile ducts, cholangiogram showed leak from left hepatic duct. Polyp extracted from left hepatic duct. Yovani-en-y hepaticojejunostomy x 2 to left hepatic duct and an accessory duct. 19Fr JANETT placed near HJ. Complications: None Status at end of surgery: Stable Activity: progressive ambulation Surgical wound class: Yes, wound was clean contaminated. Patient Class: Surgery Admit. Is this a patient scheduled as an outpatient that needs to be admitted as an inpatient? No Dr. Sarmiento was present in the OR for the critical portion of the procedure and procedure sign-out. Signed by Madeleine Hooks MD 07/30/2021 11:09 PM [id number] Note* OP Note - Diamond Larson MD - 07/30/2021 2:08 PM EDT SURGICAL ONCOLOGY OPERATIVE NOTE Patient name: Shahla Ruelas Date of procedure: 07/30/2021 Pre-operative diagnosis: complex hepatic cystic lesion concerning for biliary cystadenoma Post-operative diagnosis: same Procedure: 1. Diagnostic laparoscopy 2. Laparoscopic bilateral transversus abdominus plane blocks 3. Exploratory laparotomy 4. Lysis of adhesions 5. Intra-operative ultrasound of the liver 6. Enucleation biliary cystadenoma Surgeon: Diamond Larson MD Co-Surgeon: Dennis Sarmiento MD Hand Dry Cleaner: Madeleine Hooks MD (general surgery resident) Anesthesiologist: Uriel Hathaway DO Anesthesia: general endotracheal Specimen: 1. Falciform 2. Biliary cystadenoma 3. Liver cyst fluid for bilirubin, culture and cytology Estimated blood loss: 20 cc for my portion Drains: none Findings: Flimsy omental adhesions to the left lower quadrant anterior abdominal wall. Large (~10 x5 x 5 cm) cystic lesion adjacent to the gallbladder fossa, below falciform ligament and anterior tothe hilar structure. Dense omental and duodenal adhesions to the complex hepatic cystic lesion. Biliary cystic lesion with bilious, purulent fluid and exophytic polypoid mass on posterior wall of thecyst measuring ~ 3 cm Indications: Ms Ruelas is a 41 year old female who was found on imaging to have an enlarging, complex cystic mass near the gallbladder fossa and the hilar structures of the liver. Imaging studies suggested biliary cystadenoma versus chronic biloma after remote cholecystectomy. She was also noted on ERCP to have an intraluminal mass felt to be within the right hepatic duct that was biopsied and found to be consistent with acute on chronic inflammation, fibrin and reactive ductal epithelial cell. Given the enlarging cystic mass and mass within the biliary tree, Dr Sarmiento recommended enucleation of the cystic mass and common bile duct exploration and excision of the bile duct mass. He discussed the risks of surgery including bleeding, infection, injury to surrounding structure, need for additional procedures and she was willing to proceed. I was asked to assist intra-operatively with the procedure and personally discussed surgical plans with the patient, discussing initial diagnosticlaparoscopy and bilateral transversus abdominal plane blocks. We again discussed risks of surgery and she was willing to proceed. Details of Procedure: The patient was identified in the pre-operative holding area. Informed consent was verified. She was taken to the operating room. Pre-operative antibiotic prophylaxis with 900 mg of clindamycin was administered and SCDs were placed. She was placed on the operating room table in supine position withboth arms extended. General endotracheal anesthesia was then administered and then an orogastric tube, an arterial line, a central line, and a reyes catheter were placed. The abdomen was prepped and draped in the usual sterile fashion. Time- out was then performed, verifying the correct patient, position, and procedure. A 5 mm incision was made in the left upper quadrant in the mid clavicular line and the abdomen was entered under direct visualization utilizing the optical separator. The abdomen was insufflated to 15 mm Hg and the laparoscope was introduced in the abdomen. There were no injuries noted from initialtrocar placement. We then examined the abdominal cavity and noted a flimsy omental adhesion to the anterior abdominal wall in the left lower quadrant. Omental adhesions were noted to a bulging mass below the falciform ligament at the liver edge. Flimsy adhesions between the liver capsule and the anterior abdominal wall were also noted. There was no evidence of metastatic disease or other abnormalities. Bilateral transversus abdominus plane blocks were then performed with 40 cc of a mixture of 1% lidocaine and 0.5% bupivacaine in the right and left abdomen for a total of 80 cc. This completed the laparoscopic portion of the procedure, so the laparoscopic instruments were passed off the field. A generous right upper quadrant incision was made sharply 2 fingerbreaths below the costal margin. The incision was deepened through the subcutaneous tissue and abdominal wall musculature with electrocautery. We then placed a Harper retractor to allow for adequate exposure. The falciform ligamentwas divided with the Caiman device and passed off as a specimen. The falciform ligament was then divided along the liver surface towards the hepatic veins. Flimsy adhesions between the anterior surface of the liver and the diaphragm were divided with electrocautery. Ultrasound examination of the liver was then performed, revealing a complex cystic mass adjacent to the gallbladder fossa and overlying the portal structures. The mass was approximately 10 x 5 x 5 cm with a complex- appearing multiloculated cystic intraluminal mass measuring ~3 cm. No other lesions were noted throughout the liver. We began by lysing the omental adhesions between the liver edge, cystic mass and the omentum with acombination of electrocautery and sharp dissection. The mass was adherent to the lateral wall of the duodenum. A plane was developed medially towards the hilar structures, at which time the inferior margin of the cystic mass was encircled and was able to be from the duodenum. Dr Sarmiento s crubbed in to the procedure at that time. I then assisted him in enucleation of the cystic mass from the liver edge. We began the enucleation at the liver edge just lateral to the falciform ligament.The cyst was decompressed revealing bilious and purulent appearing fluid, which was sampled for culture, cytology and assessment of bilirubin. Within the lumen, a polypoid, exophytic mass was identified on the medial/posterior wall measuring ~3 cm. The cyst was then enucleated from the liver parenchyma using electrocautery and use of the Caiman device. In doing so, dissection was carried down towards the hilar structures using the cyst wall as the plane for dissection. Bleeding from branches ofthe right portal vein were controlled with 5-0 Prolene suture and other bleeding sites controlled with 3-0 silk sutures. I assisted in enucleation of approximately 75% of the cystic lesion before turning the patient over to Dr Yolanda Shea who completed the rest of the procedure. Details of the remainder of the surgical procedure can be found in his operative dictation. Complications: none for my portion Drs. Sarmiento and Marsha were required as co-surgeons due to the complexity of the operation as there were no capable residents available. As the attending surgeon, I was present and scrubbed for the entire duration of my portion of the procedure. Diamond Larson MD [facility] Work Phone: [phone]) [phone] History and physical note* Madeleine Hooks MD - 07/30/2021 11:08 AM EDT Surgical Attestation: I have reviewed the patient's History and Physical Examination. I have personally seen and evaluated the patient, repeating ahmadi portions. There is no significant interval change. Surgery is still indicated. Yes Consent reviewed and signed by patient/family: Yes Operative site verified and marked: site verified but not marked as not anatomically possible Madeleine Hooks MD 07/30/2021 11:08 AM [id number] History and physical note* Madeleine Hooks MD - 07/30/2021 11:08 AM EDT Surgical Attestation: I have reviewed the patient's History and Physical Examination. I have personally seen and evaluated the patient, repeating ahmadi portions. There is no significant interval change. Surgery is still indicated. Yes Consent reviewed and signed by patient/family: Yes Operative site verified and marked: site verified but not marked as not anatomically possible Madeleine Hooks MD 07/30/2021 11:08 AM documented in this [id number] Note* Anesthesia Attestation - Uriel Hathaway DO - 07/30/2021 11:01 AM EDT Anesthesia Attestation ATTESTATION OF INFORMED CONSENT FOR ANESTHESIA Anesthesia options were discussed with the patient and/or legal printing sales representative. The risks, benefits and alternatives were reviewed. Questions regarding anesthesia were answered. Patient and/or legal printing sales representative knows such anesthetics and procedures may be performed by Resident physicians, Certified Anesthesiologist Assistants, or Certified Nurse Anesthetists under the supervision of a physician. The patient /or the patient s legal representativeagree with the plan for anesthesia. [facility] Work Phone: [phone] Note* Blood Attestation - Uriel Hathaway DO - 07/30/2021 11:01 AM EDT Blood Attestation ATTESTATION OF INFORMED CONSENT FOR BLOOD The transfusion of blood and/or blood components were discussed with the patient and/or legal printing sales representative. The risks, benefits and alternatives were reviewed. Questions regarding blood transfusions were answered. The patient /or the patient s legal printing sales representative agree with the plan for transfusion of blood and/or blood components. [id number] Miscellaneous Notes* OP Note - Dennis Sarmiento MD - 07/30/2021 8:03 AM EDT Name: SHAHLA RUELAS MR#: [id number] [facility]#: [id number] Date of Procedure: 07/30/2021 ATTENDING SURGEON: Dennis Sarmiento MD FIRST SURGEON: Madeleine Hooks MD CO-SURGEON: Diamond Larson PREOPERATIVE DIAGNOSIS: Biliary cystadenoma. 2. Hepatic duct polyp POSTOPERATIVE DIAGNOSIS: Biliary cystadenoma. 2. Hepatic duct polyp OPERATION: 1. Diagnostic laparoscopy with laparoscopic bilateral transversus abdominis plane block. 3. Exploratory laparotomy with lysis of adhesions > 1 hour. 4. Enucleation of biliary cystadenoma. 5. Common bile duct exploration. 6. Direct Biliary endoscopy with choledochoscope (CPT 25730). 7. Resection of hepatic duct polyp 8. Intraoperative cholangiogram. 9. Yovani-en-Y hepaticojejunostomy x2. 10. Vascularized omental pledget to anastomosis. 11. Intraoperative ultrasound of the liver and hepatic vessels (CPT: 99420) ANESTHESIA: General with endotracheal anesthesia. OPERATIVE INDICATIONS: This is a 41-year-old female with a history of a remote cholecystectomy who during workup for upper GI complaints was noted to have an enlarging biliary cyst, which was increasing in size over time of surveillance. Imaging was consistent with a biliary cystadenoma. She also had several ERCPs with SpyGlass choledochoscopy, whereby she was noted to have a hepatic duct polyp that was biopsied and negative for malignancy. Following discussion at the Multidisciplinary Tumor Board, the decision was made to offer her an excision of the biliary cystadenoma with an approach and aim to perform an enucleation with concomitant bile duct exploration with polyp removal. Following discussion of risks, benefits, alternatives, and personnel involved with the patient, she consented to proceed. OPERATIVE FINDINGS: Evidence of adhesions from prior abdominal surgery requiring 30-45 minutes of adhesiolysis. Segment IVB biliary cystadenoma, which was consistent with preoperative imaging. Complete enucleation was obtained with control of right portal vein defects consistent with the adherence to the tumor . There was then evidence of 2 hepatic duct orifices that were identified and cannulated. Intraoperative cholangiogram revealed a left hepatic duct transection, which was consistent with communication into the cyst itself. Intrahepatic bile duct polyp was excised in its entirety and waslocated in segment IVB left hepatic duct, which was excised. Yovani-en-Y hepaticojejunostomy performed with a 70 cm Yovani limb in a retrocolic manner. Anastomosis performed in end-to-side fashion with interrupted technique 5-0 PDS. A vascularized omental pledget was then used to wrap the anastomosis. OPERATIVE DETAILS: Following a briefing in the perioperative area, identifying the patient by name,date of , and procedure to be performed, she was brought to the operating room, induced with general anesthesia and intubated. Given operating room technical difficulties after intubation, the patient was transferred to a different operative room that was functioning and her abdomen was prepped and draped in the usual sterile fashion. Appropriate lines and monitoring were performed by the Anesthesia team. She received perioperative antibiotics. A time-out was verbalized. A 5 mm incision was made in the left upper abdomen. The abdomen was entered atraumatically. There was evidence of adhesions from prior abdominal surgery. A bilateral transversus abdominis plane block was performed witha mixture of 1% lidocaine, 0.5% Marcaine, injectable saline. 50 mL were injected bilateral and the rest within the wounds themselves. Next, a standard right subcostal incision was made and the abdomen was entered atraumatically. The falciform ligament was taken down later to be presumably used for a vascularized pledget, but this was adherent to the tumor itself. Therefore, it was excised and sent as part of the specimen. The incision was enlarged and the Harper liver retractor was placed for adequate exposure. Intraoperativeultrasound revealed the above-mentioned findings. The duodenum was quite adherent to the cyst itself and slowly and carefully a Cattell-Braasch maneuver was performed mobilizing the right colon out of the retroperitoneum as well as a modest Loyda maneuver. At this point, we began with a top-down en ucleation of the biliary cystadenoma. There were several areas of significant bleeding inherent to the procedure and without clinical significance that were controlled with suture ligation. Slowly and carefully, the cyst itself was enucleated. The cyst was opened at various points to decompress it and slowly and carefully was enucleated out of the segment IVB area. Following complete enucleation of the cyst, there were 2 small defects in a right portal vein branch that were closed primarily with 5-0 Prolene suture. The area was hemostatic. We next identified the prior cystic duct stump and this was then taken down and divided to the level of the common bile duct. The SpyGlass choledochoscopy was then used and we were able to enter intothe duodenum, but given the angle, it was difficult to traverse the hepatic ducts, where the polyp was located and where we were attempting to resect the polyp. For this reason, we aborted this attempt at biliary endoscopy and we inspected the hilum, we noted an orifice that was consistent with a hepatic duct branch and the polyp was located at this site. The polyp was then able to be grasped surgically and removed in its entirety. Hemostasis was assured. The polyp was then sent off as a separate specimen. This duct was then able to be intubated with the cholangioscopy and there were no further lesions identified. Upon further inspection of the liver bed, we identified a much smaller hepatic duct that was emanating from where the cyst was presumably as the entrance of the cyst and the exit being the other side. Intraoperative cholangiogram was performed, identifying an intact bile duct distal to where the cystic duct stump was as well as contrast flow proximally into the hepatic ducts, both the right and the left with extravasation at the sites of where the cyst was enucleated. Biliary endoscopy could also be used to intubate the duodenum. Given the complexity of these hepatic duct defects and the distance between them, we elected to perform a Yovani-en-Y hepaticojejunostomy anastomosis to both of these ducts. A 70 cm Yovani limb was created. 30 cm distal to the ligament of Treitz, the bowel was transected. A jejunojejunostomy was performed in a evhq-en-kztq fashion with 3-0 Vicryl and 2-0 Ethibond sutures. Enterotomies between both the Yovani limb and the biliopancreatic limb. A 60 mm white load stapler was then fired to complete the anastomosis and the common enterotomy was closed in 2 layers, 1 with a 3-0 Vicryl that was previously placed. The tail tied to the 2-0 Ethibond. An additional 3-0 PDS suture imbrication was performed. The 2-0 Ethibond suture was then used to perform an anti-obstructing suture of Brolin as well as a mesenteric defect closure in a running locking fashion. The Yovani limb was then passed through the bare area of the colonic mesentery and brought up to both hepatic ducts. There was minimal tenstion The cystic duct stump was closed primarily with 3-0 PDS suture. Next, over both a 5-Senegalese pediatric feeding tube for the smaller hepatic duct and an 8-[place]egalese pediatric feeding tube for the larger one, an end-to-side anastomosis was performed x2. Unfortunately, following completion of the larger anastomosis, there was evidence of tearing of the posterior duct from the Yovani limb. Therefore, this anastomosis was taken down in its entirety. A portion of the bowel was resected and the anastomosis was redone with 5-0 PDS in an interrupted fashion over the 8 Fr feeding tube as stent. There was no evidence of bile leak at this time. A vascularized omental pledget was then used to wrap the larger anastomosis given the friability of the ducts themselves. A large clip was placed by both anastomoses for identification should the need arise in future for either fluoroscopic or endoscopic access to these areas. Once we were satisfied with the r econstruction, the abdomen was copiously irrigated and suctioned. Surgiflo dressing was placed along the cut edges of the resected specimen. The incision was closed primarily with 0 PDS in two layers, the posterior fascial layer as well as the anterior fascial layer. The skin was reapproximated with 3-0 Vicryl deep dermal sutures and skin clips. The abdomen is cleaned and dried. Prior to closure,a 19-Sen[place]e round José drain was placed posterior to both anastomoses. The dry dressings were applied. The patient was awakened from anesthesia, extubated to the recovery room in stable condition. ESTIMATED BLOOD LOSS: 1300 mL. COMPLICATIONS: None. STATUS AT THE END OF SURGERY: Stable. SPECIMENS: Biliary cystadenoma. Hepatic duct polyp. ACTIVITY: Ad cha. WOUND CLASS: Class 2 or clean contaminated. INCISION PROCEDURE START TIME: 2:08 p.m. INCISION CLOSE PROCEDURE END TIME: 10:58 p.m. TOTAL OPERATIVE TIME: [address] Sarmiento performed the entire operation with assistance. Please note a modifier 22 should be added given the increased time, technical difficulty, and the intensity of the patient's condition. Please note that Dr. Zaman was requested for assistance as a co-surgeon in the initial portion of the operation as there were no capable residents available. MD FREDERICK Box/Flaca/ Dict: 07/31/2021 22:40:26 TRANS: 08/01/2021 00:30:11 JOB: [id number] DictJob#: [id number] documented in this [id number] Note* OP Note - Dennis Sarmiento MD - 07/30/2021 8:03 AM EDT Name: SHAHLA RUELAS MR#: [id number] [facility]#: [id number] Date of Procedure: 07/30/2021 ATTENDING SURGEON: Dennis Sarmiento MD FIRST SURGEON: Madeleine Hooks MD CO-SURGEON: Diamond Larson PREOPERATIVE DIAGNOSIS: Biliary cystadenoma. 2. Hepatic duct polyp POSTOPERATIVE DIAGNOSIS: Biliary cystadenoma. 2. Hepatic duct polyp OPERATION: 1. Diagnostic laparoscopy with laparoscopic bilateral transversus abdominis plane block. 3. Exploratory laparotomy with lysis of adhesions > 1 hour. 4. Enucleation of biliary cystadenoma. 5. Common bile duct exploration. 6. Direct Biliary endoscopy with choledochoscope (CPT 00181). 7. Resection of hepatic duct polyp 8. Intraoperative cholangiogram. 9. Yovani-en-Y hepaticojejunostomy x2. 10. Vascularized omental pledget to anastomosis. 11. Intraoperative ultrasound of the liver and hepatic vessels (CPT: 51771) ANESTHESIA: General with endotracheal anesthesia. OPERATIVE INDICATIONS: This is a 41-year-old female with a history of a remote cholecystectomy who during workup for upper GI complaints was noted to have an enlarging biliary cyst, which was increasing in size over time of surveillance. Imaging was consistent with a biliary cystadenoma. She also had several ERCPs with SpyGlass choledochoscopy, whereby she was noted to have a hepatic duct polyp that was biopsied and negative for malignancy. Following discussion at the Multidisciplinary Tumor Board, the decision was made to offer her an excision of the biliary cystadenoma with an approach and aim to perform an enucleation with concomitant bile duct exploration with polyp removal. Following discussion of risks, benefits, alternatives, and personnel involved with the patient, she consented to proceed. OPERATIVE FINDINGS: Evidence of adhesions from prior abdominal surgery requiring 30-45 minutes of adhesiolysis. Segment IVB biliary cystadenoma, which was consistent with preoperative imaging. Complete enucleation was obtained with control of right portal vein defects consistent with the adherence to the tumor . There was then evidence of 2 hepatic duct orifices that were identified and cannulated. Intraoperative cholangiogram revealed a left hepatic duct transection, which was consistent with communication into the cyst itself. Intrahepatic bile duct polyp was excised in its entirety and waslocated in segment IVB left hepatic duct, which was excised. Yovani-en-Y hepaticojejunostomy performed with a 70 cm Yovani limb in a retrocolic manner. Anastomosis performed in end-to-side fashion with interrupted technique 5-0 PDS. A vascularized omental pledget was then used to wrap the anastomosis. OPERATIVE DETAILS: Following a briefing in the perioperative area, identifying the patient by name,date of , and procedure to be performed, she was brought to the operating room, induced with general anesthesia and intubated. Given operating room technical difficulties after intubation, the patient was transferred to a different operative room that was functioning and her abdomen was prepped and draped in the usual sterile fashion. Appropriate lines and monitoring were performed by the Anesthesia team. She received perioperative antibiotics. A time-out was verbalized. A 5 mm incision was made in the left upper abdomen. The abdomen was entered atraumatically. There was evidence of adhesions from prior abdominal surgery. A bilateral transversus abdominis plane block was performed witha mixture of 1% lidocaine, 0.5% Marcaine, injectable saline. 50 mL were injected bilateral and the rest within the wounds themselves. Next, a standard right subcostal incision was made and the abdomen was entered atraumatically. The falciform ligament was taken down later to be presumably used for a vascularized pledget, but this was adherent to the tumor itself. Therefore, it was excised and sent as part of the specimen. The incision was enlarged and the Harper liver retractor was placed for adequate exposure. Intraoperativeultrasound revealed the above-mentioned findings. The duodenum was quite adherent to the cyst itself and slowly and carefully a Cattell-Braasch maneuver was performed mobilizing the right colon out of the retroperitoneum as well as a modest Loyda maneuver. At this point, we began with a top-down en ucleation of the biliary cystadenoma. There were several areas of significant bleeding inherent to the procedure and without clinical significance that were controlled with suture ligation. Slowly and carefully, the cyst itself was enucleated. The cyst was opened at various points to decompress it and slowly and carefully was enucleated out of the segment IVB area. Following complete enucleation of the cyst, there were 2 small defects in a right portal vein branch that were closed primarily with 5-0 Prolene suture. The area was hemostatic. We next identified the prior cystic duct stump and this was then taken down and divided to the level of the common bile duct. The SpyGlass choledochoscopy was then used and we were able to enter intothe duodenum, but given the angle, it was difficult to traverse the hepatic ducts, where the polyp was located and where we were attempting to resect the polyp. For this reason, we aborted this attempt at biliary endoscopy and we inspected the hilum, we noted an orifice that was consistent with a hepatic duct branch and the polyp was located at this site. The polyp was then able to be grasped surgically and removed in its entirety. Hemostasis was assured. The polyp was then sent off as a separate specimen. This duct was then able to be intubated with the cholangioscopy and there were no further lesions identified. Upon further inspection of the liver bed, we identified a much smaller hepatic duct that was emanating from where the cyst was presumably as the entrance of the cyst and the exit being the other side. Intraoperative cholangiogram was performed, identifying an intact bile duct distal to where the cystic duct stump was as well as contrast flow proximally into the hepatic ducts, both the right and the left with extravasation at the sites of where the cyst was enucleated. Biliary endoscopy could also be used to intubate the duodenum. Given the complexity of these hepatic duct defects and the distance between them, we elected to perform a Yovani-en-Y hepaticojejunostomy anastomosis to both of these ducts. A 70 cm Yovani limb was created. 30 cm distal to the ligament of Treitz, the bowel was transected. A jejunojejunostomy was performed in a fvsp-sk-[id number] fashion with 3-0 Vicryl and 2-0 Ethibond sutures. Enterotomies between both the Yovani limb and the biliopancreatic limb. A 60 mm white load stapler was then fired to complete the anastomosis and the common enterotomy was closed in 2 layers, 1 with a 3-0 Vicryl that was previously placed. The tail tied to the 2-0 Ethibond. An additional 3-0 PDS suture imbrication was performed. The 2-0 Ethibond suture was then used to perform an anti-obstructing suture of Brolin as well as a mesenteric defect closure in a running locking fashion. The Yovani limb was then passed through the bare area of the colonic mesentery and brought up to both hepatic ducts. There was minimal tenstion The cystic duct stump was closed primarily with 3-0 PDS suture. Next, over both a 5-Senegalese pediatric feeding tube for the smaller hepatic duct and an 8-Senegalese pediatric feeding tube for the larger one, an end-to-side anastomosis was performed x2. Unfortunately, following completion of the larger anastomosis, there was evidence of tearing of the posterior duct from the Yovani limb. Therefore, this anastomosis was taken down in its entirety. A portion of the bowel was resected and the anastomosis was redone with 5-0 PDS in an interrupted fashion over the 8 Fr feeding tube as stent. There was no evidence of bile leak at this time. A vascularized omental pledget was then used to wrap the larger anastomosis given the friability of the ducts themselves. A large clip was placed by both anastomoses for identification should the need arise in future for either fluoroscopic or endoscopic access to these areas. Once we were satisfied with the r econstruction, the abdomen was copiously irrigated and suctioned. Surgiflo dressing was placed along the cut edges of the resected specimen. The incision was closed primarily with 0 PDS in two layers, the posterior fascial layer as well as the anterior fascial layer. The skin was reapproximated with 3-0 Vicryl deep dermal sutures and skin clips. The abdomen is cleaned and dried. Prior to closure,a 19-Senegalese round José drain was placed posterior to both anastomoses. The dry dressings were applied. The patient was awakened from anesthesia, extubated to the recovery room in stable condition. ESTIMATED BLOOD LOSS: 1300 mL. COMPLICATIONS: None. STATUS AT THE END OF SURGERY: Stable. SPECIMENS: Biliary cystadenoma. Hepatic duct polyp. ACTIVITY: Ad cha. WOUND CLASS: Class 2 or clean contaminated. INCISION PROCEDURE START TIME: 2:08 p.m. INCISION CLOSE PROCEDURE END TIME: 10:58 p.m. TOTAL OPERATIVE TIME: [address] Sarmiento performed the entire operation with assistance. Please note a modifier 22 should be added given the increased time, technical difficulty, and the intensity of the patient's condition. Please note that Dr. Zaman was requested for assistance as a co-surgeon in the initial portion of the operation as there were no capable residents available. Dennis Sarmiento MD KME/MedQ/ Dict: 07/31/2021 22:40:26 TRANS: 08/01/2021 00:30:11 JOB: [id number] [facility]#: [id number] [employer] Work Phone: [phone] Miscellaneous Notes* Telephone Encounter - Trista Estrella RN - 07/16/2021 2:28 PM EDT Spoke with patient and advised that she start Ferrous Sulfate 325 mg every other day after surgery and follow up with pcp. Advised patient to call [facility] if unable to tolerate oral iron. Patient verbalized understanding. * Telephone Encounter - Leandra Snyder RPh - 07/16/2021 2:11 PM EDT [facility] Staff, Please contact patient re the following issue. We received a referral for anemia management from [facility] (patient to have surgery on 07/30). Based on labs patient can start oral iron supplement every other day, but don't start until after procedure. Patient can follow up with pcp for further management Thanks! 07/15/2021 Hemoglobin 12.0 - 15.0 g/dL 11.7 (A) Iron 45 - 160 ug/dL 35 (A) Ferritin 10.3 - 219.0 ng/mL 14.2 TIBC 250 - 410 ug/mL 407 %SAT 20 - 55 % 9 (A) * Telephone Encounter - Cheryl Andrade - 07/16/2021 8:49 AM EDT Referral received for new Anemia pt. Pharmacist to review chart. If applicable, additional information: Additional pertinent information: Patient scheduled for hepatectomy partiel lobectomy 07/30 documented in this [id number] Instructions* Patient Instructions* Marcella Luevano APRN-CNP - 07/15/2021 1:12 PM EDT On the morning of your surgery please take only the following medications, with a small sip of water: clonazePAM (KlonoPIN) 0.5 MG tablet fluoxetine (PROZAC) 20 MG capsule brexpiprazole (REXULTI) 2 MG TABS tablet omeprazole (PRILOSEC) 40 MG capsule Do not take any Aspirin 7 days before the surgery. Do not take any Ibuprofen, Aleve, Advil, Diclofenac, Meloxicam, Naproxen, or Motrin or any other NSAIDS 3 days before surgery. May take over the counter Acetaminophen (Tylenol) as needed for pain. Please hold all Vitamin E, [place] 3, fish oil and herbal supplements for 1 week prior to surgery documented in this [id number] Miscellaneous Notes* PSE Appt H&P - Bee Wilde - 07/15/2021 12:58 PM EDT Patient was identified by name and date of . Bee Wilde Bill of rights provided to patient * PSE Appt H&P - Marcella Luevano APRN-CNP - 07/14/2021 2:18 PM EDT Images from the original note were not included. Presurgical Evaluation Shahla Ruelas, [id number] 41 year old Female 07/15/2021 Height: 5' 10.5 Weight: 96.2 kg BMI: (29.99) DAY OF SURGERY T&S VITAL SIGNS: BP 117/62 Pulse 75 Temp 97 F (36.1 C) (Temporal) Resp 16 Ht 1.791 m (5' 10.5 ) Wt 96.2 kg (212 lb) SpO2 96% BMI 29.99 kg/m ALLERGIES: Allergies Allergen Reactions Ciprofloxacin Edema Facial edema - per pt Flagyl [Metronidazole] Edema Facial edema - per pt Penicillins Edema Facial edema - per pt HISTORY OF PRESENT ILLNESS: Shahla Ruelas is a 41 year old female pt who is seen here today for pre-surgical evaluation for HEPATECTOMY, PARTIAL, LOBECTOMY, LAPAROSCOPY, DIAGNOSTIC, EXPLORATION, COMMON BILE DUCT. She has a h/o Cyst of gallbladder and Liver cyst. Currently denies fever and chills,new cough, SOB or CP. She is scheduled for surgery w/ Dr. Sarmiento on 07/30/21 RECENT ILLNESS: Serious illness or hospitalization within the last six months. Yes Admit 04/22-04/28/2021 STOP-BANG Row Name Office Visit from 07/15/2021 in [facility] Pre-Surgical Evaluation History of sleep apnea? Yes Hospital Course 44 year old female with hx of gallstones s/p ERCP with biliary stent placement c/b pancreatitis andprogression of cystic mass adjacent to GB fossa with irrguular thickening and multifocal septation and perihepatic cysts. GI and surgery consulted for further evaluation and characterization of perihepatic collections. They would like to follow up outpatient and present to tumor board before further management. Prior to presentation she was treated with IV meropenem due to concern for infection at OSH along with TPN. Lipase was eleavated consistent with pancreatitis - ID consulted and agreed to hold off on antibiotics given clinical stability. TPN was able to be weaned off as her pain improved and she was able to tolerate and advance to GI soft diet. PICC line removed before discharge. F/u with hepatobiliary surgery (Dr. Jerry shea) for management of cyst near GB and hepatic cysts. F/u GI for eventual removal of biliary stent Admit 04/02-04/09/2021 Hospital Course Shahla Ruelas is a 41 year old female who presented from [place]SH [place] with chief complaint of RUQ pain and nausea and some vomiting. RUQ US at OSH demonstrated complex cyst in GB fossa. CTA showed increased size of lesion since 2015. Started on ertapenem and ceftriaxone in setting of elevated WBC and allergies to cipro, PCNs, flagyl. Transferred to [facility] for GI consult and possible ERCP. Given low concern for abscess, no obvious source of infection, and normal procal, antibx were d/c'ed. GI consulted and recommended EUS. EUS with cystic mass on gallbladder fossae- fine needle biopsy doneand bile fluid aspirated. Biopsy without malignant cells. ERCP done on 04/08/21 with findings of Right intrahepatic bile duct mass, choledocholithiasis. Stone and sludge were extracted and a plastic bile duct stent was placed. MRCP was suggested for further characterization of right intrahepatic bileduct lesion and gallbladder fossae cystic mass. Repeat ERCP for stent removal in 8 weeks. PSG @[facility] ,does not wear cpap EXERCISE CAPACITY: 4-10 mets and patient able to walk 2 blocks SOCIAL HISTORY: Social History Tobacco Use Smoking status: Current Every Day Smoker Packs/day: 0.75 Years: 25.00 Pack years: 18.75 Types: Cigarettes Smokeless tobacco: Never Used Vaping Use Vaping Use: Never used Substance Use Topics Alcohol use: Not Currently Drug use: Not Currently reports previous drug use. MEDICAL HISTORY: Past Medical History: Diagnosis Date Anxiety Depression GERD (gastroesophageal reflux disease) HTN (hypertension) SURGICAL HISTORY: Past Surgical History: Procedure Laterality Date CHOLECYSTECTOMY ENDOSCOPIC ULTRASOUND, UPPER N/A 04/05/2021 Procedure: ENDOSCOPIC ULTRASOUND, UPPER, GENERAL ANESTHESIA; Surgeon: Leobardo Barry MD; Location: [facility]; Service: Gastroenterology ERCP N/A 04/08/2021 Procedure: ERCP, GENERAL ANESTHESIA; Surgeon: Leobardo Barry MD; Location: [facility]; Service: Gastroenterology ERCP N/A 06/16/2021 Procedure: ERCP, GENERAL ANESTHESIA; Surgeon: Leobardo Barry MD; Location: [facility]; Service: Gastroenterology PROBLEM LIST: Patient Active Problem List: Cyst of gallbladder [K82.8] HTN (hypertension) [I10] Gastroesophageal reflux disease without esophagitis [K21.9] Nausea & vomiting [R11.2] Class 2 obesity with body mass index (BMI) of 38.0 to 38.9 in adult [E66.9, Z68.38] Common bile duct stone [K80.50] Acute pancreatitis after endoscopic retrograde cholangiopancreatography (ERCP) [K91.89, K85.90] History of biliary stent insertion [Z98.890] Right upper quadrant abdominal pain [R10.11] Perihepatic fluid collection [K76.89] 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] On total parenteral nutrition (TPN) [Z78.9] FAMILY HISTORY: Family History Problem Relation Age of Onset Hypertension Father ANESTHESIA REVIEW OF SYSTEMS: Eyes/ENT: Negative Teeth: Missing Teeth Pulmonary: SHARI and Asthma Cardio-vascular: HTN G.I./ Hepatic: Cyst of gallbladder-ERCP 2/3 with biliary stent placement c/b pancreatitis and progression of cystic mass adjacent to GB fossa with irregular thickening and multifocal septation and perihepatic cysts,pancreatitis ,cholecystectomy ,GERD Renal/: Negative Neurological: b/l CTR Gynecological: Irregular Menses Psychiatric: Panic Attacks,depression ,anxiety Musculoskeletal: Negative Endocrine: Negative Hematologic: Anemia, EWA-referral sent to anemia clinic Constitutional: Negative Skin: intact PREVIOUS ANESTHETIC COMPLICATIONS: Anesthesia Complications None FAMILY HISTORY OF ANESTHETIC COMPLICATIONS: No PHYSICAL EXAM: Eyes: PERRL and EOM's intact ENT: Mucosa normal, Neck supple, Carotids normal pulse without bruits and Thyroid normal Pulmonary: Chest clear to auscultation bilaterally Cardiovascular: RRR with S1S2 and No murmurs, gallops, or rubs Abdomen: Soft and non-tender and Bowel sounds normal Extremities: No gross or obvious abnormalities Neurologic: Awake, alert, oriented, No motor deficits and Sensation grossly intact Psychiatric: alert and oriented to person, place and time, Appropriate mood/affect Skin: No gross or obvious abnormalities on visible skin AIRWAY EXAM: Mallampati score: 1 TMD: Adequate Neck Extension/ Flexion: Adequate Mouth Opening: Adequate Dentition: Missing teeth Micrognathia/Overbite: No PAIN ASSESSMENT: Severity: 0 Location: N/A LABORATORY DATA: Type & Screen None CBC (last 3 years, up to 5 values) (Last 5 results in the past 3 years) WBC RBC Hgb Hct MCV RDW Plt 07/15/21 1257 7.3 4.18 11.7 35.3 85 16.6 220 04/23/21 0617 6.0 3.02 8.3 25.5 85 15.9 202 04/22/21 2203 6.5 3.04 8.4 25.6 84 15.6 241 04/09/21 0538 9.0 3.82 10.7 32.6 85 15.1 301 04/08/21 0538 7.1 3.96 11.2 34.2 86 15.4 298 Basic Metabolic Panel (Last 5 results in the past 3 years) Na K Cl CO2 Gap Glu BUN Cr Ca 04/28/21 0537 136 3.9 104 27 9 107 8 0.61 8.7 04/27/21 1009 139 4.4 106 22 15 129 6 0.60 8.7 04/25/21 0545 137 4.0 101 25 15 106 4 0.60 8.7 04/24/21 1541 138 3.9 101 26 15 88 3 0.55 8.7 04/23/21 0621 138 4.1 102 24 16 80 6 0.58 8.4 Basic Metabolic Panel None PT/PTT/INR (last 3 years, up to 5 values) (Last 5 results in the past 3 years) PT aPTT INR 07/15/21 1257 1.01 04/26/21 0618 1.26 04/22/21 2203 1.30 04/22/21 2203 27 04/08/21 0538 1.19 04/03/21 0318 1.11 Arterial Blood Gases None No result for BNP LFT's (last 3 years, up to 5 values) (Last 5 results in the past 3 years) T Prot Albumin D Bili T Bili Alk Phos ALT AST 04/22/212202 5.2 2.1 0.10 0.6 55 13 15 04/09/21 0538 5.2 2.2 0.30 0.7 79 25 20 04/08/21 0538 5.6 2.4 0.30 0.7 73 24 18 04/06/21 0523 5.1 2.2 0.20 0.9 75 27 19 04/05/21 0603 4.8 2.2 0.20 0.9 77 32 15 TESTS REVIEWED: CXRay: No Chest x-ray found EKG 04/23/2021 Normal sinus rhythm LVH with left ventricular strain Abnormal ECG When compared with ECG of 03-APR-2021 02:16, QRS duration has decreased Minimal criteria for Anteroseptal infarct are no longer Present Criteria for Inferior infarct are no longer Present ST less depressed in Inferior leads ST less depressed in Anterior-lateral leads QT has shortened ... ECHO 05/31/2020 @[facility] XCELERA - 06/01/2020 10:46 AM EDT Left Ventricle: Systolic function is normal with an ejection fraction of 55-60%. Left Ventricle Left ventricle appears normal in size. Wall thickness is normal. Systolic function is normal with an ejection fraction of 55-60%. No segmental wall motion abnormalities. Lateral E' is 10.80 cm/s. Medial E' is 7.31 cm/s. Right Ventricle Right ventricular size appears normal. Left Atrium Left atrium is normal in size. The left atrial volume index is 18.1 mL/m2. Right Atrium Right atrium is normal in size. IVC/SVC The right atrial pressure is estimated at 8 mmHg. There is partial collapse with deep inspiration. Mitral Valve Mitral valve structure is normal. There is trace regurgitation. There is no evidence of mitral valve stenosis. Tricuspid Valve Tricuspid valve appears to be normal. There is trace to mild regurgitation. There is no evidence oftricuspid valve stenosis. RVSP calculated at 38 mmHg. RVSP is based on RA pressure of 8 mmHg. Aortic Valve The aortic valve is trileaflet. The leaflets are not thickened and exhibit normal excursion. There is no regurgitation or stenosis. Pulmonic Valve The pulmonic valve was not well visualized. Ascending Aorta The aortic root is normal in size. Pericardium There is no pericardial effusion. Cardiac cath 07/02/2020 @[facility] Angiographically normal coronary arteries Recommendations 1. Continue medical therapy for risk factor modification Coronary Findings Diagnostic Dominance: Right Left Main: The vessel is moderate in size and is angiographically normal. Left Anterior Descending: The vessel was visualized by angiography, is moderate in size and is angiographically normal. Left Circumflex: The vessel was visualized by angiography, is moderate in size and is angiographically normal. Right Coronary Artery: The vessel was visualized by angiography, is large and is angiographically normal. Intervention No interventions have been documented. CURRENT MEDICATION LIST: Current Outpatient Medications Medication Sig Dispense Refill clonazePAM (KlonoPIN) 0.5 MG tablet take 1 tablet by mouth once daily if needed for anxiety fluoxetine (PROZAC) 20 MG capsule Take 20 mg by mouth daily. brexpiprazole (REXULTI) 2 MG TABS tablet Take by mouth daily. trazodone (DESYREL) 100 MG tablet Take 200 mg by mouth at bedtime. omeprazole (PRILOSEC) 40 MG capsule Take 40 mg by mouth daily. losartan (COZAAR) 50 MG tablet Take 50 mg by mouth daily. No current facility-administered medications for this visit. CURRENT MEDICATIONS: Aspirin: No NSAIDS: No Other Antiplatelet Medication: No Anticoagulants: No Steroids: No PATIENT MEDICATION INSTRUCTIONS: On the morning of your surgery please take only the following medications, with a small sip of water: See patient instruction for details LABS, TESTS, CONSULTS ORDERED: Orders & Meds Signed During This Encounter COMPLETE BLOOD COUNT [CBC] PROTHROMBIN TIME AND INR [PT] Iron and Tibc Ferritin clonazePAM (KlonoPIN) 0.5 MG tablet fluoxetine (PROZAC) 20 MG capsule PLAN: Documentation complete. Labs, Images, and Medications reviewed, and patient questions answered. Chlorhexidine preoperative skin solution with instructions given to patient Cardiology visit 07/20/2020 @[facility] IMPRESSIONS/PLAN There are no diagnoses linked to this encounter. 1. Angiography normal coronaries 2. Normal LV function 3. Smoker 4. Shortness of breath Risk factor modification/smoking cessation Follow-up p.r.n. TODAYS ORDERS No orders of the defined types were placed in this encounter. FOLLOW UP No follow-ups on file. PCP: TAMARA CALERO DO Interviewer signature: SAMIRA MCGRATH 7:58 AM 07/16/2021 documented in this [id number] Miscellaneous Notes* OP Note - Leobardo Barry MD - 06/16/2021 10:26 AM EDT Images from the original note were not included. ENDO 05 Shahla Mark Anthony Jessenia 41 year old female Surgical Contact Serial Number: [id number] Shahla Currygan [id number] 06/16/2021 PACKAGE DYE STAND LOADER: Leobardo Barry MD ATTENDING:Leobardo Barry MD Procedure(s): ERCP, GENERAL ANESTHESIA INSTRUMENT: Scope #411 SEDATION: Anesthesia Assisted Pre-Op Diagnosis Codes: * Cyst of gallbladder [K82.8] INDICATIONS: This is a 41 year old female with choledocholithiasis and bile duct lesion. Patient verbalized understanding. While monitoring the patient with continuous use of P, BP, O2 andEKG, therapeutic duodenoscope passed to second portion of duodenum under direct visualization without difficulty. The previously placed plastic bile duct stent was seen in place and was partially occluded. This was removed with an endoscopic snare. Ampulla placed en face and appeared normal with evidence of previous sphincterotomy. CBD was selectively cannulated and injection of contrast revealed a normal caliber CBD without filling defects or mass effect. CHD and intra-hepatic ducts were normal. In the right intrahepatic duct, a filling defec t was seen consistent with the patient's previous cholangiogram. A 9mm extraction balloon was used to sweep the duct. Sludge was removed. The lesion seen in the right intrahepatic duct was immobile. Occlusion cholangiogram was then performed and was otherwise normal. Digital cholangioscopy was then performed. No bile duct stones were visualized. The previously visualized lesion in The right intrahepatic duct was visualized and appeared larger than previous examination. It was polypoid with smooth overlying mucosa. The mucosa had some erythema. SpyBite forceps were used to sample this lesion under direct visualization- this was successful. The scope was then withdrawn from the duodenum and the stomach was decompressed and the scope was then withdrawn from the patient. Bile duct obstruction [[id number]] 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 [[id number]] PHANI PATH SPECIMEN SENT: yes SPECIMEN: Bile Duct PHOTOGRAPH TAKEN:yes COMPLICATIONS DURING PROCEDURE: none EBL (estimated blood loss): none IMPRESSION: 1. Plastic bile duct occlusion. 2. Plastic bile duct stent removal. 3. Bile duct sludge removal. 4. Digital cholangioscopy. 5. Right intrahepatic duct lesion. 6. Biopsy of right intrahepatic duct lesion. RECOMMENDATIONS: 1. Watch for signs of bleeding, perforation, cholangitis and pancreatitis. 2. F/U with PCP. 3. Follow up pathology results. 4. Follow up with surgery as previously scheduled (June 22, 2021). CC: Primary Care/Referring Physician(s): No primary care provider on file. PERSON COMPLETING NOTE: Leobardo Barry MD 06/16/2021 at 10:59 AM Patient meets criteria for discharge/transfer: Dr. Leobardo Barry * Blood Attestation - Tamara Venegas MD - 06/16/2021 10:18 AM EDT Blood Attestation ATTESTATION OF INFORMED CONSENT FOR BLOOD The transfusion of blood and/or blood components were discussed with the patient and/or legal printing sales representative. The risks, benefits and alternatives were reviewed. Questions regarding blood transfusions were answered. The patient /or the patient s legal printing sales representative agree with the plan for transfusion of blood and/or blood components. * Anesthesia Attestation - Tamara Venegas MD - 06/16/2021 10:18 AM EDT Anesthesia Attestation ATTESTATION OF INFORMED CONSENT FOR ANESTHESIA Anesthesia options were discussed with the patient and/or legal printing sales representative. The risks, benefits and alternatives were reviewed. Questions regarding anesthesia were answered. Patient and/or legal printing sales representative knows such anesthetics and procedures may be performed by Resident physicians, Certified Anesthesiologist Assistants, or Certified Nurse Anesthetists under the supervision of a physician. The patient /or the patient s legal representativeagree with the plan for anesthesia. documented in this [id number] Miscellaneous Notes* PSE Call H&P - Leigh Ann Candelaria, STEVE-STRADDLE BUG - 06/10/2021 12:14 PM EDT Images from the original note were not included. Telephone History Shahla Ruelas, [id number] 06/11/2021 41 year old DOS- CBC Date of Surgery: 06/16/2021 Surgeon: Dr Barry Type of Surgery: ERCP HISTORY OF PRESENT ILLNESS: Shahla Ruelas is a 41 year old female pt who is seen here today for pre-surgical evaluation for ERCP-stent removal. She has a h/o Cyst of gallbladder. Currently denies fever and chills, new cough, SOB or CP. She is scheduled for surgery w/ Dr. Barry on 06/16/2021 Admit 04/22-04/28/2021 STOP-BANG Row [facility] History of sleep apnea? Yes Hospital Course 44 year old female with hx of gallstones s/p ERCP with biliary stent placement c/b pancreatitis andprogression of cystic mass adjacent to GB fossa with irrguular thickening and multifocal septation and perihepatic cysts. GI and surgery consulted for further evaluation and characterization of perihepatic collections. They would like to follow up outpatient and present to tumor board before further management. Prior to presentation she was treated with IV meropenem due to concern for infection at OSH along with TPN. Lipase was eleavated consistent with pancreatitis - ID consulted and agreed to hold off on antibiotics given clinical stability. TPN was able to be weaned off as her pain improved and she was able to tolerate and advance to GI soft diet. PICC line removed before discharge. F/u with hepatobiliary surgery (Dr. Jerry shea) for management of cyst near GB and hepatic cysts. F/u GI for eventual removal of biliary stent Admit 04/02-04/09/2021 Hospital Course Shahla Ruelas is a 41 year old female who presented from OSH near [place] with chief complaint of RUQ pain and nausea and some vomiting. RUQ US at OSH demonstrated complex cyst in GB fossa. CTA showed increased size of lesion since 2014. Started on ertapenem and ceftriaxone in setting of elevated WBC and allergies to cipro, PCNs, flagyl. Transferred to [facility] for GI consult and possible ERCP. Given low concern for abscess, no obvious source of infection, and normal procal, antibx were d/c'ed. GI consulted and recommended EUS. EUS with cystic mass on gallbladder fossae- fine needle biopsy doneand bile fluid aspirated. Biopsy without malignant cells. ERCP done on 04/08/21 with findings of Right intrahepatic bile duct mass, choledocholithiasis. Stone and sludge were extracted and a plastic bile duct stent was placed. MRCP was suggested for further characterization of right intrahepatic bileduct lesion and gallbladder fossae cystic mass. Repeat ERCP for stent removal in 8 weeks. PSG @OSH ,does not wear cpap EXERCISE CAPACITY: 4-10 mets and patient able to walk 2 blocks ALLERGIES: Ciprofloxacin, Flagyl [metronidazole], and Penicillins PREVIOUS ANESTHETIC EXPERIENCES AND INTUBATION HISTORY: No previous anesthetic complication FAMILY HISTORY OF ANESTHETIC COMPLICATIONS: No PAST MEDICAL HISTORY: Past Medical History: Diagnosis Date Anxiety Depression GERD (gastroesophageal reflux disease) HTN (hypertension) PROBLEM LIST: Patient Active Problem List: Cyst of gallbladder [K82.8] HTN (hypertension) [I10] Gastroesophageal reflux disease without esophagitis [K21.9] Nausea & vomiting [R11.2] Class 2 obesity with body mass index (BMI) of 38.0 to 38.9 in adult [E66.9, Z68.38] Common bile duct stone [K80.50] Acute pancreatitis after endoscopic retrograde cholangiopancreatography (ERCP) [K91.89, K85.90] History of biliary stent insertion [Z98.890] Right upper quadrant abdominal pain [R10.11] Perihepatic fluid collection [K76.89] 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] On total parenteral nutrition (TPN) [Z78.9] REVIEW OF SYSTEMS: Eyes/Ears: Negative Teeth Missing Teeth Pulmonary: asthma ,SHARI Cardiovascular: HTN and denies CP, SOB, [place],Syncope or palpitations Gastrointestinal: Cyst of gallbladder-ERCP 2/3 with biliary stent placement c/b pancreatitis and progression of cystic mass adjacent to GB fossa with irregular thickening and multifocal septation andperihepatic cysts,pancreatitis ,cholecystectomy ,GERD Renal/Genitourinary: Negative Musculoskeletal: b/l CTR Endocrine: Negative Hematologic: anemia Neurologic: Negative Psychiatric: Panic Attacks,depression ,anxiety Gynecologic:Irregular Menses Constitutional:Negative PAST SURGICAL HISTORY: Past Surgical History: Procedure Laterality Date CHOLECYSTECTOMY ENDOSCOPIC ULTRASOUND, UPPER N/A 04/05/2021 Procedure: ENDOSCOPIC ULTRASOUND, UPPER, GENERAL ANESTHESIA; Surgeon: Leobardo Barry MD; Location: [facility]; Service: Gastroenterology ERCP N/A 04/08/2021 Procedure: ERCP, GENERAL ANESTHESIA; Surgeon: Leobardo Barry MD; Location: [facility]; Service: Gastroenterology SOCIAL HISTORY: Social History Socioeconomic History Marital status: Tobacco Use Smoking status: Current Every Day Smoker Packs/day: 1.00 Years: 25.00 Pack years: 25.00 Types: Cigarettes Smokeless tobacco: Never Used Vaping Use Vaping Use: Never used Substance and Sexual Activity Alcohol use: Not Currently Drug use: Not Currently Social History Narrative Not working, . 2 kids (21 and 2). Social Determinants of Health Food Insecurity: No Food Insecurity Worried About Running Out of Food in the Last Year: Never true Ran Out of Food in the Last Year: Never true Transportation Needs: No Transportation Needs Lack of Transportation (Medical): No Lack of Transportation (Non-Medical): No CURRENT MEDICATION LIST: Current Outpatient Medications Medication Sig Dispense Refill brexpiprazole (REXULTI) 2 MG TABS tablet Take by mouth daily. trazodone (DESYREL) 100 MG tablet Take 200 mg by mouth at bedtime. omeprazole (PRILOSEC) 40 MG capsule Take 40 mg by mouth daily. losartan (COZAAR) 50 MG tablet Take 50 mg by mouth daily. fluoxetine (PROZAC) 10 MG capsule Take 10 mg by mouth daily. No current facility-administered medications for this visit. Basic Metabolic Panel (Last 5 results in the past 3 years) Na K Cl CO2 Gap Glu BUN Cr Ca 04/28/21 0537 136 3.9 104 27 9 107 8 0.61 8.7 04/27/21 1009 139 4.4 106 22 15 129 6 0.60 8.7 04/25/21 0545 137 4.0 101 25 15 106 4 0.60 8.7 04/24/21 1541 138 3.9 101 26 15 88 3 0.55 8.7 04/23/21 0621 138 4.1 102 24 16 80 6 0.58 8.4 CBC (last 3 years, up to 5 values) (Last 5 results in the past 3 years) WBC RBC Hgb Hct MCV RDW Plt 04/23/21 0617 6.0 3.02 8.3 25.5 85 15.9 202 04/22/21 2203 6.5 3.04 8.4 25.6 84 15.6 241 04/09/21 0538 9.0 3.82 10.7 32.6 85 15.1 301 04/08/21 0538 7.1 3.96 11.2 34.2 86 15.4 298 04/05/21 0603 6.4 3.86 10.9 33.7 87 15.7 259 EKG 04/23/2021 Normal sinus rhythm LVH with left ventricular strain Abnormal ECG When compared with ECG of 03-APR-2021 02:16, QRS duration has decreased Minimal criteria for Anteroseptal infarct are no longer Present Criteria for Inferior infarct are no longer Present ST less depressed in Inferior leads ST less depressed in Anterior-lateral leads QT has shortened ... ECHO 05/31/2020 @[facility] XCELERA - 06/01/2020 10:46 AM EDT Left Ventricle: Systolic function is normal with an ejection fraction of 55-60%. Left Ventricle Left ventricle appears normal in size. Wall thickness is normal. Systolic function is normal with an ejection fraction of 55-60%. No segmental wall motion abnormalities. Lateral E' is 10.80 cm/s. Medial E' is 7.31 cm/s. Right Ventricle Right ventricular size appears normal. Left Atrium Left atrium is normal in size. The left atrial volume index is 18.1 mL/m2. Right Atrium Right atrium is normal in size. IVC/SVC The right atrial pressure is estimated at 8 mmHg. There is partial collapse with deep inspiration. Mitral Valve Mitral valve structure is normal. There is trace regurgitation. There is no evidence of mitral valve stenosis. Tricuspid Valve Tricuspid valve appears to be normal. There is trace to mild regurgitation. There is no evidence oftricuspid valve stenosis. RVSP calculated at 38 mmHg. RVSP is based on RA pressure of 8 mmHg. Aortic Valve The aortic valve is trileaflet. The leaflets are not thickened and exhibit normal excursion. There is no regurgitation or stenosis. Pulmonic Valve The pulmonic valve was not well visualized. Ascending Aorta The aortic root is normal in size. Pericardium There is no pericardial effusion. Cardiac cath 07/02/2020 @[facility] Angiographically normal coronary arteries Recommendations 1. Continue medical therapy for risk factor modification Coronary Findings Diagnostic Dominance: Right Left Main: The vessel is moderate in size and is angiographically normal. Left Anterior Descending: The vessel was visualized by angiography, is moderate in size and is angiographically normal. Left Circumflex: The vessel was visualized by angiography, is moderate in size and is angiographically normal. Right Coronary Artery: The vessel was visualized by angiography, is large and is angiographically normal. Intervention No interventions have been documented. CURRENT MEDICATIONS: Aspirin: No NSAIDS: No Other Antiplatelet Medication: No Anticoagulants: No Steroids: No PATIENT MEDICATION INSTRUCTIONS: On the morning of your surgery please take only the following medications, with a small sip of water: Prozac,omeprazole Do not take any Aspirin 7 days before surgery . Do not take any Ibuprofen, Aleve, Advil, or Motrin or any other NSAIDS 3 days before surgery . May take over the counter Acetaminophen (Tylenol) as needed for pain Please hold all Vitamin E, [place] 3, fish oil and herbal supplements for 1 week prior to surgery Do not take Losartan morning of surgery PLAN: Documentation complete. Labs, Images, and Medications reviewed, and patient questions answered. DAY OF SURGERY NOTES: The patient is to have nothing solid to eat after midnight and clear liquids up to 2 Hours before surgery check in If the patient has diagnosed SHARI, they are to bring their CPAP with them on the morning of surgery. Cardiology visit 07/20/2020 @[facility] IMPRESSIONS/PLAN There are no diagnoses linked to this encounter. 1. Angiography normal coronaries 2. Normal LV function 3. Smoker 4. Shortness of breath Risk factor modification/smoking cessation Follow-up p.r.n. TODAYS ORDERS No orders of the defined types were placed in this encounter. FOLLOW UP No follow-ups on file. PCP: DO Leigh Ann HERNÁNDEZ APRN-CNP Time Spent Performing this Telephone History: 20 minutes documented in this [id number] Evaluation note* Encounter Date Diagnosis Assessment Notes Treatment Notes Treatment Clinical Notes Jun, Right calf pain (ICD-10 - M79.661) My suspicion for DVT is low based on exam findings, but her unknown intra abdominal pathology and recent hospital stay do make it a possibility, so I will send her for US. She will seek immediate medical attention for any CP, dyspnea, or worsening symptoms in the lower extremity. [facility] Other Discharge summary Author Geo Loomis [facility] May 15, 2022 12:12pm Note Date/Time May 15, 2022 12: 10pm [facility] [address] [place] [address] Discharge Summary Signed Patient: Shahla Ruelas MR#: [id number] : 1980 Acct:[id number] Age/Sex: 42 / F Adm Date: 3 Loc: Room: [address] [place] [address]: Geo Loomis MD Copies to: MD Tamara Harper DO~ Providers Date of Discharge: 05/15/22 Discharging Provider: Geo Loomis Primary Care Provider: Tamara Calero Discharge Diagnosis (1) MDD (major depressive disorder), recurrent episode: Final Diagnosis Final Discharge Diagnosis: Major depressive disorder recurrent Summary Hospital Course Hospital course: According to admission note: Ms. Ruelas is a 42 year old female who presented due to concern for depression and suicidal ideation. Upon assessment, patient reported that she has been feeling depressed.? She stated that she had thoughts of hurting herself as well.? She reported that things have been worsening over the past couple days.? She stated that she cannot identify any trigger but does report that she recently stopped prednisonefor cough.? She reported sleep issues, decreased appetite, feelings of hopelessness and suicidal thoughts.? She denied any recent hallucinations. Past psych history: [place], major depressive disorder Past hospitalizations: Denies Past suicide attempts: Reported self injures behavior roughly 15 years ago Family psych history: Reported family history in her father biological Previous medications: Abilify, Rexulti, Vraylar, Latuda, Wellbutrin, Zoloft, Pristiq, Prozac Alcohol and drug use: Reported drinking 6 drinks a day Living: With Employment: Unemployed and trying to earn disability Patient was switched from Prozac to Fetzima due to multiple previous medication trials. She tolerated the medication okay without any problems or side effects. She did complain of some anxiety during hospitalization and did use Zyprexa which she felt was beneficial. During hospitalization she socialized with peers. She attended groups and learn coping skills. She did not exhibit any behavior concerning for suicidality. She did not have any conflict with peers or staff. As her symptoms improved she became brighter and affect was more full. She did not report any further suicidality. She was comfortable discharge plan home and following up with outpatient services. We discussed about engaging in some groups on the outpatient basis as well. Time spent discussing smoking cessation with patient: 3 to 10 minutes Condition Condition at Discharge: Stable Status at Discharge Cognitive/behavioral status at discharge: Mental Status Exam: Appearance: grossly normal Mental Status: mental status grossly normal Mood: Euthymic mood Affect: Normal affect Speech and Movement: speech and movement normal and speech clear Attitude: cooperative Thought Process: normal Thought Content: Denied hallucinations, no homicidality and no suicidality Insight: Good Judgment: Good Functional status at discharge: independent ambulation Overall status at discharge: patient is back to baseline Time Spent with Patient Time spent providing/coordinating discharge services (# min): 30 Exam Physical Exam Vital Signs: Temp Pulse Resp BP Pulse Ox O2 Del Method 97.6 F 73 16 133/88 96 Room Air 05/15/22 11:38 05/15/22 11:38 05/15/22 07:46 05/15/22 11:38 05/15/22 11:38 05/15/22 11:38 Discharge Plan Discharge Plan Patient Disposition: Home Activity: No Activity Restriction Diet: Regular Additional Instructions: Regular Diet No Activity Restrictions Instructions: Depression, Adult (DC), [facility] [place] Instructions Prescriptions: New cholecalciferol (vitamin D3) 50 mcg (2,000 unit) capsule 50 mcg PO DAILY 30 Days Qty: 30 0RF gabapentin 300 mg Capsule 300 mg PO TID 30 Days Qty: 90 0RF Fetzima 40 mg Capsule,Extended Release 24 Hr 40 mg PO DAILY Qty: 30 0RF nicotine (polacrilex) 2 mg Gum 2 mg buccal Q2HR PRN (Reason: Nicotine Cravings) Qty: 60 0RF olanzapine 10 mg tablet 5 mg PO Q6H PRN (Reason: Agitation) 30 Days Qty: 30 0RF Continued omeprazole 40 mg capsule,delayed release(DR/EC) 40 mg PO DAILY Patient Comments: take 1 capsule by mouth before breakfast trazodone 100 mg tablet 200 mg PO HS Patient Comments: take 2 tablets by mouth at bedtime albuterol sulfate 90 mcg/actuation HFA aerosol inhaler 1 puff INHALATION Q4H PRN (Reason: Shortness Of Breath) Patient Comments: inhale 1 puff by mouth and INTO THE LUNGS every 4 hours if needed shortness of breath and wheezing Discontinued fluoxetine 40 mg capsule 80 mg PO DAILY Patient Comments: take 2 capsules by mouth once daily Follow Up: [facility] Hotline [Outside] [facility] [Outside] - 05/16/22 11:00 am ([facility] on Monday, May 16, 2022 at 11:00am. This is a phone call appointment with a [facility], at this time further appointments will be made. Please have your phone available around this time.) Tamara Calero, DO [Primary Care Provider] - (Please call for any medical needs) Documented By: Geo Loomis MD 05/15/22 1208 Signed By: <Electronically signed by Geo Loomis MD> 05/15/22 1212 [facility] Work Phone: evaluation note* Diagnosis Bile duct obstruction Obstruction of bile duct 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 [facility] Diagnosis Cyst of gallbladder- Primary Other specified disorder of gallbladder Liver cyst Other specified disorders of liver [facility]* Diagnosis Cyst of gallbladder Other specified disorder of gallbladder Perihepatic fluid collection Other specified disorders of liver Preop testing- Primary Preoperative examination, unspecified Iron deficiency anemia, unspecified iron deficiency anemia type Body mass index (BMI) 29.0-29.9, adult Cyst of gallbladder Other specified disorder of gallbladder Liver cyst Other specified disorders of liver [facility]* Diagnosis Liver cyst- Primary Other specified disorders of liver Cyst of gallbladder Other specified disorder of gallbladder Postoperative pain Other acute postoperative pain Perihepatic fluid collection Other specified disorders of liver [facility]* Diagnosis Postoperative follow-up- Primary Follow-up examination, following unspecified surgery Body mass index (BMI) 32.0-32.9, adult [facility]* Diagnosis Liver cyst- Primary Other specified disorders of liver [facility] [employer] Other evaluation note* Diagnosis Liver cyst- Primary Other specified disorders of liver [facility]* Diagnosis NO SHOW- Primary [facility]* Diagnosis Onset Date Resolution Status Major depression acute Suicidal ideation acute [facility] Work Phone: evaluation note* Diagnosis Onset Date Resolution Status Major depression acute MDD (major depressive disorder), recurrent episode acute Suicidal ideation acute [facility] Work Phone: Evaluation note* Diagnosis Onset Date Resolution Status Major depression acute MDD (major depressive disorder), recurrent episode acute Suicidal ideation acute Suicidal ideation acute [facility] Work Phone: Evaluation note* Diagnosis Onset Date Resolution Status Depression with anxiety acut e Essential hypertension acute GERD without esophagitis acu te Nicotine dependence, cigaret rocio, with other nicotine-induced disorders acute Constipation noneactive [facility] Work Phone: Evaluation note* Diagnosis Abnormal CT scan- Primary Other nonspecific (abnormal) findings on radiological and other examinations of body structure Cigarette smoker motivated to quit Claudication (CMS-HCC) Unspecified peripheral vascular disease 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) documented [facility] this encounter [facility] N[facility]ative - Reported* Type Description Date Medical History Anxiety and Depression Medical History HTN Medical History Asthma Medical History IBS Medical History Inner ear with dizziness Medical History bilateral carpal tunnel Medical History Hheel spur Medical History Right carpal tunnel syndrome Medical History Right carpal tunnel syndrome Medical History Carpal tunnel syndrome, left Surgical History gallbladder 2000 Surgical History wisdom teeth removed 2013 Surgical History bilateral carpal tunnel surgery 2016 Surgical History Surgical History cardiac catheterization 2020 Hospitalization History 1 [facility] Other [facility] Narrative - Reported* Type Description Date Medical History Anxiety and Depression Medical History HTN Medical History Asthma Medical History IBS Medical History Inner ear with dizziness Medical History bilateral carpal tunnel Medical History Hheel spur Medical History Right carpal tunnel syndrome Medical History Right carpal tunnel syndrome Medical History Carpal tunnel syndrome, left Surgical History gallbladder 2000 Surgical History wisdom teeth removed 2013 Surgical History bilateral carpal tunnel surgery 2016 Surgical History Surgical History cardiac catheterization 2020 Surgical History gall stones removal from bile d t 04/2021 Surgical History abdominal surgery with cyst rem oval 07/30/2021 Hospitalization History 1 [facility] Other history general Narrative - Reported* Type Description Date Medical History Major Depressive Disorder/Anxiet y Medical History HTN Medical History Asthma Medical History IBS Medical History Inner ear with dizziness Medical History bilateral carpal tunnel Medical History Hheel spur Medical History Right carpal tunnel syndrome Medical History Right carpal tunnel syndrome Medical History Carpal tunnel syndrome, left Surgical History gallbladder 2000 Surgical History wisdom teeth removed 2013 Surgical History bilateral carpal tunnel surgery 2016 Surgical History Surgical History cardiac catheterization 2020 Surgical History gall stones removal from bile d t 04/2021 Surgical History abdominal surgery with cyst rem oval 07/30/2021 Hospitalization History 1 child Hospitalization History 1S- Major Depressive Dis order 05/2022 [facility] Other [facility] general Narrative - Reported* Type Description Date Medical History Major Depressive Disorder/Anxiet y Medical History HTN Medical History Asthma Medical History IBS Medical History Inner ear with dizziness Medical History bilateral carpal tunnel Medical History Hheel spur Medical History Right carpal tunnel syndrome Medical History Right carpal tunnel syndrome Medical History Carpal tunnel syndrome, left Surgical History gallbladder 2000 Surgical History wisdom teeth removed 2013 Surgical History bilateral carpal tunnel surgery 2016 Surgical History Surgical History cardiac catheterization 2020 Surgical History gall stones removal from bile d uct 04/2021 Surgical History abdominal surgery with cyst rem oval 07/30/2021 Surgical History [facility] 07/2022 Hospitalization History 1 child Hospitalization History 1S- Major Depressive Dis order 05/2022 [facility] Other history general Narrative - Reported* Type Description Date Medical History Major Depressive Disorder/Anxiet y Medical History HTN Medical History Asthma Medical History IBS Medical History bilateral carpal tunnel Medical History Hheel spur Medical History Right carpal tunnel syndrome Medical History Carpal tunnel syndrome, left Surgical History gallbladder 2000 Surgical History wisdom teeth removed 2013 Surgical History bilateral carpal tunnel surgery 2016 Surgical History Surgical History cardiac catheterization 2020 Surgical History gall stones removal from bile d uct 04/2021 Surgical History abdominal surgery with cyst rem oval 07/30/2021 Surgical History [facility]al [facility] 07/2022 Hospitalization History 1 child Hospitalization History 1S- Major Depressive Dis order 05/2022 [facility] Other Hospital Discharge instructions* Instructions* Stephanie Johnston RN - 06/16/2021 POST PROCEDURE HOMEGOING INSTRUCTIONS ERCP (ENDOSCOPIC RETROGRADE CHOLANGIO PANCREATOGRAPHY) : 1. Plastic bile duct occlusion. 2. Plastic bile duct stent removal. 3. Bile duct sludge removal. 4. Digital cholangioscopy. 5. Right intrahepatic duct lesion. 6. Biopsy of right intrahepatic duct lesion. RECOMMENDATIONS: 1. Watch for signs of bleeding, perforation, cholangitis and pancreatitis. 2. F/U with PCP. 3. Follow up pathology results. 4. Follow up with surgery as previously scheduled (June 22, 2021). Hygenic and Special Care Needs: Your throat may be sore or irritated. This soreness should subside within a couple of days. As advised by the doctor, you may take Tylenol for the discomfort. Warm fluids or throat lozenges maybe soothing to the throat. Mild abdominal cramping is normal because of the air used for the test. The cramping will ease as the air is passed. You may have mild discomfort at the IV site from the sedative medication. Warm compresses will be soothing to the area. Activity: Rest at home today, then you may progress to regular activities as tolerated tomorrow. You might besleepy today because of the sedation you received. Diet: Clear liquids are best tolerated at first. If you are not nauseated you can progress your diet to light foods (soups,crackers, toast) and then to regular foods as tolerated. Precautions: If you had a small incision made in the opening to the bile ducts during your procedure, DO NOT TAKE aspirin or aspirin products, arthritis medication or over -the -counter Motrin, Nuprin, Advil, etc., for 7 to 10 days after the test. If you take coumadin or other blood thinners, your doctor will discuss with you when to resume yourmedication. Notify Your Physician Immediately for: 1. Severe abdominal pain 2. Dizziness/Fainting 3. Persistent nausea and vomiting 4. Signs of infection such as, chills, fever or if your IV site becomes red or swollen 5. Vomit blood or pass maroon or black stool Post Anesthesia Safety: Possible side effects include drowsiness, dizziness, or inability to think clearly. For your safety, do not drive, drink alcoholic beverages, take any unprescribed medication or make any important decisions for 24 hours. You may feel dizzy or weak: avoid areas where there is danger of falling or injury. It is highly recommended that a responsible adult be with you for 24 hours. Follow-up appointment: Follow up with Primary Care Provider. Medications: No changes Special Instructions: ABOVE Literature: If you have any questions or concerns call the nurse line at [phone]. Please leave a message and anurse will return your call within 48-72 hours. For urgent problems or concerns, call the [facility] unit at , Monday through Monday 7:30 am -5:00 pm. 24 hour advice line I acknowledge that I have read the above home-going instructions, have had the opportunity to ask questions and receive an explanation. I acknowledge that this is my signature and I have been given acopy of the instructions. Patient Date Reviewing Nurse Date Dr Barry Physicians Name [facility]/Caregiver [facility] Additional Instructions Regular Diet No Activity [facility] Work Phone: InstructionsNot on filedocumented in this encounter [facility] Narrative* Auth/Cert Specialty Diagnoses / Procedures Referred By Vinayak hayward Referred To Contact Gastroenterology Diagnoses Cyst of gallbladder [K82.8] Procedures ENDOSCOPIC RETROGRADE CHOLANGIOPANCREATOGRAPH Y; DX, W/WO SPECIMEN COLLECTION, BRUSH/WASH (SEP PROC) ERCP, GENERAL ANESTHESIA Leobardo Barry MD [address] [place] [id number] [facility] [address] Phone: [phone] Referral ID Status Reason Start Date Expiration Date Visits Re quested Visits Authorized [id number] 3 3 [facility] for visit Narrative* Auth/Cert Specialty Diagnoses / Procedures Referred By Vinayak hayward Referred To Contact General Surgery Diagnoses Cyst of gallbladder Liver cyst Cyst of gallbladder [K82.8] Liver cyst [K76.89] Procedures HEPATECTOMY, RESECTION, LIVER; PARTIAL LOBECTOMY UNLISTED PROCEDURE, LAPAROSCOPY, BILIARY TRACT HEPATECTOMY, PARTIAL, LOBECTOMY LAPAROSCOPY, DIAGNOSTIC EXPLORATION, COMMON BILE DUCT Dennis Sarmiento MD [address] [place] [address] [employer] [address] [place] [address] Phone: [phone] Referral ID Status Reason Start Date Expiration Date Visits Re quested Visits Authorized [id number] 3 3 [facility] for visit NarrativeDiscuss Anxiety, weight gain , possible hormone imbalance follows with [employer] [facility] Other Summary Purpose Family History No Family History Records Found Relationship Condition Age at Onset Recorded Date/T jack Not Specified Hypertension Unknown daughter Asthma Unknown Not Specified Malignant neoplasm Unknown History of stroke Unknown Advance Directives No Advanced Directives Records FoundLatest Code Status on File Code Status Date Activated Date Inactivated Comments Full Code 07/31/2021 2:23 AM Documentation of decision pr ocess for this code status: Discussed with patient or surrogate. Thi s is the code status chosen by the patient/surrogate. Full Code 04/22/2021 9:40 PM 04/28/2021 8:50 PM Full Code 04/02/2021 10:43 PM 04/09/2021 6:00 PM Latest Code Status on File Code Status Date Activated Date Inactivated Comments Full Code 04/22/2021 9:40 PM 04/28/2021 8:50 PM Latest Code Status on File Code Status Date Activated Date Inactivated Comments Full Code 04/22/2021 9:40 PM 04/28/2021 8:50 PM Full Code 04/02/2021 10:43 PM 04/09/2021 6:00 PM Latest Code Status on File Code Status Date Activated Date Inactivated Comments Full Code 07/31/2021 2:23 AM Full Code 04/22/2021 9:40 PM 04/28/2021 8:50 PM Latest Code Status on File Code Status Date Activated Date Inactivated Comments Full Code 07/31/2021 2:23 AM 08/04/2021 3:11 PM Latest Code Status on File Code Status Date Activated Date Inactivated Comments Full Code 07/31/2021 2:23 AM 08/04/2021 3:11 PM Question Answer Comments Documentation of decision process for this code status: Discussed with patient or surrogate. This is the code status chosen by the patient/surrogate. Code Status History Code Status Date Activated Date Inactivated Comments Full Code 04/22/2021 9:40 PM 04/28/2021 8:50 PM Question Answer Comments Documentation of decision process for this code status: Discussed with patient or surrogate. This is the code status chosen by the patient/surrogate. Full Code 04/02/2021 10:43 PM 04/09/2021 6:00 PM Question Answer Comments Documentation of decision process for this code status: Discussed with patient or surrogate. This is the code status chosen by the patient/surrogate. Advance Directive Response Recorded Date/ Time Advance Directives No November 10:17am Advance Directive Response Recorded Date/ Time Advance Directives No November 11:17am Latest Code Status on File Code Status Date Activated Date Inactivated Comments Full Code 06/01/2020 7:50 AM 06/01/2020 6:49 PM Code Status History Code Status Date Activated Date Inactivated Comments Full Code 05/23/2019 7:06 PM 05/23/2019 10:15 PM Full Code 05/13/2019 6:25 AM 05/15/2019 10:12 PM Full Code 05/02/2019 10:27 PM 05/03/2019 10:38 AM Reason for Referral Specialty Diagnoses / Procedures Referred By Vinayak hayward Referred To Contact Cardiology Diagnoses Iron deficiency anemia, unspecified iron deficiency anemia type Marcella Luevano, [facility] [address] [place] [address] [facility] [address] [place] [address] Referral ID Status Reason Start Date Expiration Date V isits Requested Visits Authorized [id number] Authorized 07/16/2021 07/16/2022 20 20 Scheduling Instructions No appointment is needed for this referral, if you have not heard from the Anemia Clinic within 2 business days, please call [phone] Comments Referred patient's anemia will be managed by either Pharmacists and/or Nurse Practitioners. If a pharmacist is managing, the referral serves to acknowledge your agreement to [facility]'s Consult Agreement where the pharmacist may start, stop and titrate medications and order appropriate laboratory tests based on the diagnoses selected. Please refer to this Consult Agreement for details. This referral is contingent based upon patient's agreement. Pharmacist will select patient specific ICD 10 code from patient's problem list for each general diagnosis listed in this referral. Please make sure diagnoses are included on patient's problem list. For a list of authorized pharmacists, please navigate to the Pharmacy Share Point site, Ambulatory Clinical Pharmacy tab. Indication for anemia: anemia due to iron deficiency Target HGB Range: 12 - 15 (typical for iron deficiency referrals) Additional pertinent information: Patient scheduled for hepatectomy partiel lobectomy 07/30 For questions call [phone] (Anticoagulation/Medication Management Clinic) Specialty Diagnoses / Procedures Referred By Contac t Referred To Contact Diagnoses Postoperative pain Meenakshi Weeks PA-C [address] [place] [address] Referral ID Status Reason Start Date Expiration Date V isits Requested Visits Authorized [id number] Authorized 03/05/2022 3 3 Specialty Diagnoses / Procedures Referred By Contac t Referred To Contact Radiology Procedures CT ABDOMEN/PELVIS W/ [place] [address] [place] [address] SCAN Referral ID Status Reason Start Date Expiration Date Visits Re quested Visits Authorized [id number] Closed 08/01/2021 08/01/2022 1 1 Specialty Diagnoses / Procedures Referred By Contac t Referred To Contact Radiology Procedures XR FLUORO SUPPORT ONLY IN SURGERY XR MH FLUORO <1 HOUR Dennis Sarmiento MD [address] [place] [address] S DIAGNOSTIC RADIOLOGY [address] [place] [address] Referral ID Status Reason Start Date Expiration Date Visits Re quested Visits Authorized [id number] Closed 07/30/2021 07/30/2022 1 1 Specialty Diagnoses / Procedures Referred By Contac t Referred To Contact Diagnoses Abnormal CT scan Procedures Vas art doppler lwr bilat mult lev/PVR Stephanie Webster MD [address], [address] [address] Referral ID Status Reason Start Date Expiration Date V isits Requested Visits Authorized [id number] Authorized 05/18/2023 05/17/2024 1 1 Chief Complaint and Reason for Visit Chief Complaint MHP Reason for Visit Major depression Suicidal ideation Chief Complaint MHP Reason for Visit Major depression MDD (major depressive disorder), recurrent episode Suicidal ideation Chief Complaint MHP depression-suicidal Reason for Visit Major depression MDD (major depressive disorder), recurrent episode Suicidal ideation Suicidal ideation Chief Complaint BH 6 Month Follow Up bp issues Reason for Visit Depression with anxi ety Essential hypertension GERD without esophagitis Nicotine dependence, cigarettes, with other nicotine-induced disorders Constipation Additional Source Comments INFORMATION SOURCE (unrecogn ized section and content) DATE CREATED AUTHOR 03/11/2018 [facility] DATE CREATED AUTHOR AUTHOR'S ORGANIZ ATION 11/06/2020 [facility] DATE CREATED AUTHOR AUTHOR'S ORGANIZ ATION 03/15/2022 [facility] DATE CREATED AUTHOR AUTHOR'S ORGANIZ ATION 08/12/2022 [facility] DATE CREATED AUTHOR AUTHOR'S ORGANIZ ATION 05/30/2023 [facility] DATE CREATED AUTHOR AUTHOR'S ORGANIZ ATION 07/03/2023 [facility] DATE CREATED AUTHOR AUTHOR'S ORGANIZ ATION 07/04/[address] Care Teams (unrecognized sec tion and content) Team Status: Active Member Role Status Dates Tamara Calero DO Primary Care Provider Active Team Status: Active Member Role Status Dates Tamara Calero DO Primary Care Provider Active Start: February 01, 2023 Vivek Antoine MD Attending Provider Active Start: February 01, 2023 Team Status: Inactive Member Role Status Dates Tamara Calero DO Attending Provider Active Start: February 24, 2023 End: February 24, 2023 Team Status: Inactive Member Role Status Dates Tamara Calero DO Primary Care Prov hung, Attending Provider Active Start: April 24, 2023 End: April 24, 2023 Team Status: Inactive Member Role Status Dates Tamara Calero DO Primary Care Provider Active Antolin Abarca DO Emergency Provider Active Geo Loomis MD Admit Provider, Attending Provider Active Suspender Cutter Relationship Specialty Start Date End Date Debo Strickland APRN-[facility] [address] [place] [address] [place] [address] SENIOR ELECTRICAL PROJECT MANAGER Gastroenterology 05/08/21 Suspender Cutter Relationship Specialty Start Date End Date Debo Strickland APRN-[facility] [address] [place] [address] [place] [address] SENIOR ELECTRICAL PROJECT MANAGER Gastroenterology 05/08/21 Suspender Cutter Relationship Specialty Start Date End Date Debo Strickland APRN-[facility] [address] [place] [address] [place] [address] SENIOR ELECTRICAL PROJECT MANAGER Gastroenterology 05/08/21 Suspender Cutter Relationship Specialty Start Date End Date Debo Strickland APRN-[facility] [address] [place] [address] [place] [address] SENIOR ELECTRICAL PROJECT MANAGER Gastroenterology 05/08/21 Suspender Cutter Relationship Specialty Start Date End Date Debo Strickland APRN-[facility] [address] [place] [address] [place] [address] SENIOR ELECTRICAL PROJECT MANAGER Gastroenterology 05/08/21 Dennis Sarmiento MD [address] [place] [address] Physician General Surgery 07/10/21 Suspender Cutter Relationship Specialty Start Date End Date Debo Strickland APRN-[facility] [address] [place] [address] [place] [address] SENIOR ELECTRICAL PROJECT MANAGER Gastroenterology 05/08/21 Dennis Sarmiento MD [address] [place] [address] Physician General Surgery 07/10/21 Suspender Cutter Relationship Specialty Start Date End Date Debo Strickland APRN-[facility] [address] [place] [address] [place] [address] SENIOR ELECTRICAL PROJECT MANAGER Gastroenterology 05/08/21 Dennis Sarmiento MD [address] [place] [address] Physician General Surgery 07/10/21 Suspender Cutter Relationship Specialty Start Date End Date Debo Strickland APRN-[facility] [address] [place] [address] [place] [address] SENIOR ELECTRICAL PROJECT MANAGER Gastroenterology 05/08/21 Dennis Sarmiento MD [address] [place] [address] Physician General Surgery 07/10/21 Suspender Cutter Relationship Specialty Start Date End Date Debo Strickland APRN-[facility] [address] [place] [address] [place] [address] SENIOR ELECTRICAL PROJECT MANAGER Gastroenterology 05/08/21 Dennis Sarmiento MD [address] [place] [address] Physician General Surgery 07/10/21 Suspender Cutter Relationship Specialty Start Date End Date Debo Strickland APRN-[facility] [address] [place] [address] [place] [address] SENIOR ELECTRICAL PROJECT MANAGER Gastroenterology 05/08/21 Dennis Sarmiento MD [address] [place] [address] Physician General Surgery 07/10/21 Marcella Luevano [employer]ING [employer] [address] [place] [address] [place] [address] SENIOR ELECTRICAL PROJECT MANAGER Anesthesiology 08/07/21 Suspender Cutter Relationship Specialty Start Date End Date Debo Strickland APRN-[facility] [address] [place] [address] [place] [address] SENIOR ELECTRICAL PROJECT MANAGER Gastroenterology 05/08/21 Dennis Sarmiento MD [address] [place] [address] Physician General Surgery 07/10/21 Marcella Luevano, CASING SPLITTER-[facility] [address] [place] [address] [place] [address] SENIOR ELECTRICAL PROJECT MANAGER Anesthesiology 08/07/21 Suspender Cutter Relationship Specialty Start Date End Date Debo Strickland [employer]ING [employer]TER[facility] [address] [place] [address] [place] [address] SENIOR ELECTRICAL PROJECT MANAGER Gastroenterology 05/08/21 Dennis Sarmiento MD [address] [place] [address] Physician General Surgery 07/10/21 Marcella Luevano CASING SPLITTER[facility] [address] [place] [address] [place] [address] SENIOR ELECTRICAL PROJECT MANAGER Anesthesiology 08/07/21 Suspender Cutter Relationship Specialty Start Date End Date Dennis Sarmiento MD [address] [place] [address] Physician General Surgery 07/10/21 Marcella Luevano, CASING SPLITTER[facility] [address] [place] [address] [place] [address] SENIOR ELECTRICAL PROJECT MANAGER Anesthesiology 08/07/21 Suspender Cutter Relationship Specialty Start Date End Date Dennis Sarmiento MD [address] [place] [address] Physician General Surgery 07/10/21 Marcella Luevano, CASING SPLITTER[facility] [address] [place] [address] [place] [address] SENIOR ELECTRICAL PROJECT MANAGER Anesthesiology 08/07/21 Suspender Cutter Relationship Specialty Start Date End Date Dennis Sarmiento MD [address] [place] [address] Physician General Surgery 07/10/21 Marcella Luevano, CASING SPLITTER[facility] [address] [place] [address] [place] [address] SENIOR ELECTRICAL PROJECT MANAGER Anesthesiology 08/07/21 Team Status: Active Member Role Status Dates Tamara Calero , Primary Care Provider Active Antolin Abarca , DO Emergency Provider Active Geo Loomis MD Admit Provider, Attending Provider Active Suspender Cutter Relationship Specialty Start Date End Date Dennis Sarmiento MD [address] [place], [place] [id number] Physician General Surgery 07/10/21 Marcella Luevano, CASING SPLITTER-[facility] [address] [place] [address] [place] [address] SENIOR ELECTRICAL PROJECT MANAGER Anesthesiology 08/07/21 Suspender Cutter Relationship Specialty Start Date End Date Tamara Calero DO [address] [facility] [place] [id number] PCP - General Family Medicine 09/25/18 Reason for Visit (unrecogniz ed section and content) Reason Onset Date Comments Anemia 07/16/2021 Consult with specialist 07/16/2021 Reason Comments Post-op Follow-up Reason Comments Limited or partial exam Specialty Diagnoses / Procedures Referred By Vinayak t Referred To Contact General Surgery Diagnoses Cyst of gallbladder History of biliary stent insertion Johan Stephens MD [address] [place] [address] [address] [place] [id number] S SURGERY GENERAL [address] [place], [place] [id number] Referral ID Status Reason Start Date Expiration Date V isits Requested Visits Authorized [id number] Authorized 04/28/2021 10/25/2021 3 3 Reason Onset Date Comments No Show 02/14/2022 Reason Comments Hospital Follow-up [facility] Scheduled Active and Recently Administ ered Medications (unrecognized section and content) Medication Order 08/02/2021 08/03/2021 08/04/2021 acetaminophen (TYLENOL) tablet 650 mg, Oral, Every 6 hours, First dose on 07/31/21 at 0230, Until Discontinued, Post-op 0000 (Hold/Not Given - Provider: Dinorah Palencia RN - Reason: Patient sleeping)0608 (Given - Provider: Dinorah Palencia, RN)0830 (Hold/Not Given - Provider: Keiko Zhang RN - Reason: Previously Administered)1405 (Given - Provider: Keiko Zhang RN)2125 (Given - Provider: Rayshawn Shaw RN) 0230 (Hold/Not Given - Provider: Rayshawn Shaw RN - Reason: Patient sleeping)0958 (Given - Provider: Antoinette Elmore RN)1632 (Given - Provider: Antoinette Elmore RN)2214 (Given - Provider: Oly High, VITA) 0230 (Hold/Not Given - Provider: Oly High RN - Reason: Patient sleeping)0920 (Given - Provider: Antoinette Elmore RN)1430 (Due)2030 (Due) albuterol (PROVENTIL) (2.5 MG/3ML) 0.083% nebulizer solution 2.5 mg, Nebulization, EVERY 4 HOURS RT, First dose on 08/01/21 at 1200, Until Discontinued 0000 (Automatically Held - Provider: Caroline Easley RT)0400 (Automatically Held - Provider: Caroline Easley RT)0800 (Automatically Held - Provider: Caroline Easley RT)1200 (Automatically Held - Provider: Caroline Easley RT)1600 (Automatically Held - Provider: Caroline Easley RT)2000 (Automatically Held - Provider: Caroline Easley RT) 0000 (Automatically Held - Provider: Caroline Easley RT)0400 (Automatically Held - Provider: Caroline Easley RT)0800 (Automatically Held - Provider: Caroline Salim, RT)1200 (Automatically Held - Provider: Caroline Easley RT)1600 (Automatically Held - Provider: Caroline Easley RT)2000 (Automatically Held - Provider: Caroline Easley RT) 0000 (Automatically Held - Provider: Caroline Easley RT)0400 (Automatically Held - Provider: Caroline Easley, RT)0800 (Automatically Held - Provider: Caroline Easley, RT)1200 (Automatically Held - Provider: Caroline Easley RT)1600 (Automatically Held - Provider: Caroline Easley, RT)2000 (Automatically Held - Provider: Caroline Easley, RT) calcium carbonate (TUMS) 500 MG tablet CHEW 500 mg, Oral, 3 TIMES DAILY, First dose on 08/01/21 at 1830, Until Discontinued 0609 (Given - Provider: Dinorah Palencia RN)1405 (Given - Provider: Keiko Zhang RN)2126 (Given - Provider: Rayshawn Shaw RN) 0600 (Hold/Not Given - Provider: Rayshawn Shaw RN - Reason: Patient refused)1303 (Given - Provider: Antoinette Elmore RN)2214 (Given - Provider: Oly High, VITA) 0530 (Given - Provider: Oly High, VITA)1400 (Due)2200 (Due) enoxaparin (LOVENOX) 40 MG/0.4ML injection 40 mg 40 mg, Subcutaneous, DAILY, First dose on 07/31/21 at 0900, Until Discontinued, Post-op 0833 (Given - Provider: Keiko Zhang RN) 0958 (Given - Provider: Antoinette Elmore RN) 0922 (Given - Provider: Antoinette Elmore RN) esomeprazole (NEXIUM) capsule 40 mg, Oral, DAILY 30 MIN BEFORE BREAKFAST, First dose on 07/31/21 at 0830, Until Discontinued, Post-op 0833 (Given - Provider: Keiko Zhang RN) 0958 (Given - Provider: Antoinette Elmore RN) 0919 (Given - Provider: Antoinette Elmore RN) fluoxetine (PROZAC) capsule 20 mg, Oral, DAILY, First dose on 07/31/21 at 0900, Until Discontinued, Post-op 0834 (Given - Provider: Keiko Zhang RN) 0958 (Given - Provider: Antoinette Elmore RN) 1200 (Due - Provider: Antoinette Elmore RN) gabapentin (NEURONTIN) capsule 300 mg, Oral, 3 TIMES DAILY, First dose on Mon08/02/21 at 0830, Until Discontinued 0834 (Given - Provider: Keiko Zhang RN)1405 (Given - Provider: Keiko Zhang RN)2126 (Given - Provider: Rayshawn Shaw RN) 0601 (Given - Provider: Rayshawn Shaw RN)1303 (Given - Provider: Antoinette Elmore RN)2214 (Given - Provider: Oly High RN) 0530 (Given - Provider: Oly High RN)1400 (Due)2200 (Due) magnesium sulfate in dextrose 5 % 100 mL ivpb 1,000 mg 100 mL (COMPLETED) 1,000 mg, Intravenous, ONCE, 1 dose, On Mon08/03/21 at 0600 0649 (IV New Bag - Provider: Rayshawn Shaw RN) methocarbamol (ROBAXIN) tablet 750 mg, Oral, 4 TIMES DAILY, First dose on 07/31/21 at 0900, Until Discontinued, Post-op 0833 (Given - Provider: Keiko Zhang RN)1405 (Given - Provider: Keiko Zhang RN)1801 (Given - Provider: Keiko Zhang RN)2126 (Given - Provider: Rayshawn Shaw RN) 0958 (Given - Provider: Antoinette Elmore RN)1303 (Given - Provider: Antoinette Elmore RN)1632 (Given - Provider: Antoinette Elmore RN)2214 (Given - Provider: Oly High RN) 0919 (Given - Provider: Antoinette Elmore RN)1300 (Due)1700 (Due)2100 (Due) nicotine (NICODERM CQ) 14 mg/24HR patch 14 mg, Transdermal, DAILY, First dose on 07/31/21 at 1530, Until Discontinued 0833 (Patch Applied - Provider: Keiko Zhang RN)0837 (Patch Removal - Provider: Keiko Zhang RN) 0957 (Patch Removal - Provider: Antoinette Elmore RN)1001 (Patch Applied - Provider: Antoinette Elmore RN) 0918 (Patch Removal - Provider: Antoinette Elmore RN)0919 (Patch Applied - Provider: Antoinette Elmore RN) potassium chloride SA (K-DUR) controlled release tablet (COMPLETED) 20 mEq, Oral, ONCE, 1 dose, On Mon08/03/21 at 0600 0604 (Given - Provider: Rayshawn Shaw RN) scopolamine (TRANSDERM-SCOP) 1 MG/3DAYS patch 1.5 mg, Transdermal, EVERY 72 HOURS, First dose on Mon07/30/21 at 0900, Until Discontinued, Pre-op 0833 (Patch Applied - Provider: Keiko Zhang RN)0859 (Patch Removal - Provider: Keiko Zhang RN) sucralfate (CARAFATE) 1 GM/10ML oral suspension 1 g, Oral, 4 TIMES DAILY BEFORE MEALS & AT BEDTIME, First dose on Mon07/31/21 at 1200, Until Discontinued 0833 (Given - Provider: Keiko Zhang RN)1231 (Given - Provider: Keiko Zhang RN)1801 (Given - Provider: Keiko Zhang RN)2125 (Given - Provider: Rayshawn Shaw RN) 0958 (Given - Provider: Antoinette Elmore RN)1303 (Given - Provider: Antoinette Elmore RN)1632 (Given - Provider: Antoinette Elmore RN)2200 (Hold/Not Given - Provider: Oly High RN - Reason: Patient refused) 0920 (Given - Provider: Antoinette Elmore RN)1200 (Due)1700 (Due)2200 (Due) trazodone (DESYREL) tablet 200 mg, Oral, AT BEDTIME, First dose on Mon07/31/21 at 2200, Until Discontinued, Post-op 2212 (Given - Provider: Rayshawn Shaw RN) 2214 (Given - Provider: Oly High RN) 2200 (Due) Continuous Medication Order 08/02/2021 08/03/2021 08/04/2021 lactated ringers iv infusion (CANCELED) Intravenous, at 75 mL/hr, CONTINUOUS, Starting on Mon07/31/21 at 0230, Until Mon08/03/21 at 1211 0619 (IV New Bag - Provider: Dinorah Palencia RN) PRN Medication Order 08/02/2021 08/03/2021 08/04/2021 albuterol (PROVENTIL) (2.5 MG/3ML) 0.083% nebulizer solution 2.5 mg, Nebulization, EVERY 4 HOURS PRN, Starting on 08/01/21 at 0813, Until Discontinued, Shortness of Breath, or not indicated naloxone (NARCAN) 0.4 MG/ML injection 0.4 mg, Intravenous Push, PRN, Starting on 07/31/21 at 0223, Until Discontinued, Respiratory Rate Less Than 8 for adults and less than 12 for Peds or for suspected overdose, Post-op ondansetron (ZOFRAN) 4 MG/2ML injection 4 mg, Intravenous Push, EVERY 6 HOURS PRN, Starting on 07/31/21 at 0829, Until Discontinued, Nausea, Vomiting oxyCODONE immediate release tablet 5 mg, Oral, EVERY 4 HOURS PRN, Starting on 08/02/21 at 0813, Until Discontinued, Moderate Pain (pain score 4,5,6) 0833 (Given - Provider: Keiko Zhang RN) oxyCODONE immediate release tablet 10 mg, Oral, EVERY 4 HOURS PRN, Starting on 08/02/21 at 0827, Until Discontinued, Severe Pain (pain score 7,8,9,10) 1233 (Given - Provider: Keiko Zhang RN)1801 (Given - Provider: Keiko Zhang RN) 0025 (Given - Provider: Rayshawn Shaw RN)0601 (Given - Provider: Rayshawn Shaw RN)0958 (Given - Provider: Antoinette Elmore RN)1632 (Given - Provider: Antoinette Elmore RN)2214 (Given - Provider: Oly High, VITA) 0530 (Given - Provider: Oly High RN)0920 (Given - Provider: Antoinette Elmore RN) Promethazine HCl (PHENERGAN) 6.25 MG/5ML oral solution SOLN 6.25 mg, Oral, EVERY 6 HOURS PRN, Starting on 07/31/21 at 0904, Until Discontinued, nausea Goals (unrecognized section and content) Goals may be documented in a n alternate section FOR RECORDS PERTAINING TO PATIENTS WHO ARE OR HAVE BEEN ENROLLED IN A CHEMICAL DEPENDENCY/SUBSTANCEABUSE PROGRAM, SOME INFORMATION MAY BE OMITTED. This clinical summary was aggregated from multiple sources. Caution should be exercised in using it in the provision of clinical care. This summary normalizes information from multiple sources, and as a consequence, information in this document may materially change the coding, format and clinical context of patient data. In addition, data may be omitted in some cases. CLINICAL DECISIONS SHOULD BE BASED ON THE PRIMARY CLINICAL RECORDS. [facility]. provides no warranty or guarantee of the accuracy or completeness of information in this document.
== END 2023-07-04 08:12 | disposition home or self-care (01) ==
LOC: CT 08:11
PROVIDERS: PCP Nurse Practitioner Family; Visit Provider Nurse Practitioner Family
DX: M54.2 Cervicalgia (principal); M50.30 Other cervical disc degeneration, unspecified cervical region
CPT/HCPCS: 72125

== ENCOUNTER 2023-09-06 12:54 | Outpatient (OUT) | payer MEDICAID, SELFPAY ==
--- NOTE | 2023-09-06 13:00 | CA_ITS ---
Patient Name: SHAHLA THAPA MR#: [id number] : 1980 Exam Date: 09/06/2023 Ordering Doctor: BENITO PRADO M.D. ECHOCARDIOGRAM REPORT PROCEDURE: CA ECHO DOPPLER COMPLETE INDICATIONS: Palpitations, hypertension, diabetes, smoker COMPARISON: None. DESCRIPTION: COMPLETE ECHOCARDIOGRAM Real-time transthoracic echocardiography with 2D, M-mode, spectral and color flow Doppler performed. QUALITY: Technically difficult due to patients condition. Poor sound transmission. LEFT VENTRICLE: Normal chamber size. Thickened septal wall. LV EF: Visual estimation of left ventricular ejection fraction is 55-60%. DIASTOLIC: Normal diastolic function. ATRIAL SEPTUM: Visually appears intact. LEFT ATRIUM: Normal chamber size. RIGHT ATRIUM: Normal chamber size. RIGHT VENTRICLE: Normal chamber size. Normal right ventricular systolic function. TRICUSPID VALVE: Normal mobility and thickness. No stenosis with no regurgitation. Unable to assess right-sided pressures due to lack of measurable tricuspid regurgitation. MITRAL VALVE: Normal mobility and thickness. No evidence of mitral valve stenosis. Mild mitral annular calcification. No mitral regurgitation. AORTIC VALVE: Not well visualized. No evidence of aortic valve stenosis. No aortic regurgitation. AORTIC ROOT: Normal diameter and appearance. PULMONIC VALVE: Not well visualized. No regurgitation. PERICARDIUM: No evidence of pericardial effusion. IVC: Within normal limits. PLEURA: CONCLUSION: 1. Technically limited study due to patient's condition and poor sound transmission. 2. The left ventricle appears to be normal in size with normal systolic function. LVEF is estimated at 55 to 60%. 3. Normal right ventricular size and systolic function. 4. No significant valvular dysfunction. 5. Unable to assess right-sided pressures due to lack of measurable tricuspid regurgitation. Adult Echocardiography Procedure Report Left Ventricle LVEDD (3.7 - 5.6 cm): 3.86 cm LVESD (2.2 - 4.0 cm): 2.87 cm LVIVS thickness (0.6 - 1.2 cm): 1.54 cm LVPW thickness (0.5 - 1.0 cm): 1.12 cm e': 0.09 m/s E - e': 6.44 LVOT Max Gradient: 8.78 mm[Hg] LVOT Area (cm2): 1.48 m/s Peak Velocity (LVOT): 1.48 m/s Mean Velocity (LVOT): 0.90 m/s LVOT Diameter 1.90 cm Left Atrium LA Volume Index (2D A2C): 26.91 ml/m2 Left Atrium Systolic Dimension: 3.32 cm Mitral Valve MV E to A Ratio: 0.61 Mitral Valve A-Wave Peak Velocity: 0.98 m/s Mitral Valve E-Wave Peak Velocity: 0.59 m/s Right Ventricle Aorta AO Root Diam: 3.03 cm Aortic Valve AoV Area (Peak Chaparro): 2.43 cm2, 2.43 cm2 AoV Area (VTI): 2.69 cm2, 2.69 cm2 Peak Velocity(Antegrade Flow): 1.73 m/s Peak Gradient(Antegrade Flow): 11.94 mm[Hg] Mean Velocity(Antegrade Flow): 1.12 m/s Mean Gradient(Antegrade Flow): 6.07 mm[Hg] Velocity Time Integral: 26.12 cm Tricuspid Valve Pulmonic Valve Peak Velocity: 1.01 m/s Peak Gradient: 3.49 mm[Hg], 4.65 mm[Hg] Right Atrium Right Atrium Systolic Pressure: 37.39 ml, 37.39 ml Dictated by: Kraig Rodriguez M.D. on 09/08/2023 at 09:08 Approved by: Kraig Rodriguez M.D. on 09/08/2023 at 09:11
== END 2023-09-06 12:55 | disposition home or self-care (01) ==
LOC: CARD 12:54
PROVIDERS: PCP Nurse Practitioner Family; Visit Provider Internal Medicine Cardiovascular Disease
DX: R00.2 Palpitations (principal); I51.7 Cardiomegaly
CPT/HCPCS: 93306

== ENCOUNTER 2023-11-10 07:15 | Outpatient (RCR) | payer MEDICAID, SELFPAY | END 2023-12-14 07:17 | disposition home or self-care (01) | LOC: CR 07:15 | PROVIDERS: PCP Nurse Practitioner Family; Visit Provider Internal Medicine Cardiovascular Disease | DX: I70.219 Atherosclerosis of native arteries of extremities with intermittent claudication, unspecified extremity (principal) | CPT/HCPCS: 93668 ==

== ENCOUNTER 2024-02-12 16:47 | Inpatient (IN) | payer MEDICAID, SELFPAY ==
[2024-02-12] VITALS (9 sets, daily range): BP systolic 95–108; BP diastolic 49–70; PULSE 83–95; TEMP 36.4–36.8; O2SAT 92–97; BMI 39.7; BMI 40.1
--- NOTE | 2024-02-12 16:50 | XR_ITS ---
The [address] [address] Patient Name: SHAHLA THAPA MRN: [id number] date: 1980 Sex: F Assigned Patient Location: ER Current Patient Location: ED.MAIN Accession/Order Number: [id number] Exam Date: 02/12/2024 17:20 Report Date: 02/12/2024 17:59 At the request of: ZACH ZHOU Procedure: XR chest 1V EXAM: XR chest 1V HISTORY: . Cough, hypotension . COMPARISON: None. TECHNIQUE: Single view of the chest FINDINGS: Heart is normal in size. Vascularity is unremarkable. Left lung is unremarkable. Increased markings are noted in the right mid to lower lung field. No consolidation is noted. EKG leads overlie the chest. XR/XR chest 1V IMPRESSION: There are a few increased markings in the right mid to lower lung field most likely representing atelectasis. An early infiltrate cannot be excluded. No consolidation is noted. Electronically authenticated by: URIEL SPIVEY Date: 02/12/2024 17:59
--- NOTE | 2024-02-12 16:51 | ED_ITS ---
<Statement entered by Murtaza Valles MD - 02/13/24 12:30> Chart was sent to my inbox for administrative and group management purposes. I was the attending physicians working during the patients hospital course. The patient was seen and managed independently by the MLP. I did not personally see or evaluate this patient, nor was I involved in the patient medical decision making process or plans of care. Pt was dispositioned by the MLP with complete independence. I was available for consultation should the MLP request during this patients ED stay. This documentation has been reviewed and approved. HPI HPI - General Adult General Chief complaint: Dizziness Time Seen by Provider: 02/12/24 16:50 Source: patient and EMR Mode of arrival: ambulance History of Present Illness HPI narrative: Patient is a 44-year-old female with a history of peripheral vascular disease, hypertension who presents to the emergency department by ambulance for low blood pressure that was noted at urgent care just prior to arrival. Patient and her daughter were being evaluated for upper respiratory symptoms, cough for the last 3 to 4 days. When patient's vital signs were being checked, the patient was noted to be hypotensive at 60/40. On EMS arrival the patient was 95 systolic. EMS initiated IV fluids. Patient arrives awake, alert and oriented. She denies syncope or falls. She had fever at the beginning of the course of her illness. She has not had any vomiting or diarrhea. She did take her regular blood pressure medication today. She has had some sputum production with coughing. She reports minimal headache with coughing but no other significant pain or nausea. She has no concern for . Related Data Home Medications ?Medication ?Instructions ?Recorded ?Confirmed gabapentin 300 mg capsule 600 mg PO TID 05/09/23 02/12/24 hydroxyzine pamoate 50 mg capsule 25 mg PO Q8H PRN anxiety 05/09/23 02/12/24 olmesartan 20 1 tab PO DAILY 05/09/23 02/12/24 mg-hydrochlorothiazide 12.5 mg tablet omeprazole 40 mg capsule,delayed 40 mg PO BID 05/09/23 02/12/24 release albuterol sulfate 90 mcg/actuation 1 puff inhalation Q4H PRN 02/12/24 02/12/24 aerosol inhaler shortness of breath or wheezing amitriptyline 50 mg tablet 75 mg PO .QHS 02/12/24 02/12/24 bupropion HCl 150 mg 24 hr tablet, 150 mg PO DAILY 02/12/24 02/12/24 extended release cholecalciferol (vitamin D3) 50 50 mcg PO DAILY 02/12/24 02/12/24 mcg (2,000 unit) tablet lorazepam 1 mg tablet 1 mg PO TID 02/12/24 02/12/24 olanzapine 5 mg tablet 5 mg PO BID 02/12/24 02/12/24 Previous Rx's ?Medication ?Instructions ?Recorded aspirin 81 mg capsule 81 mg PO DAILY #30 caps 05/08/23 atorvastatin 40 mg tablet 40 mg PO DAILY #30 tabs 05/08/23 clopidogrel 75 mg tablet (Plavix) 75 mg PO DAILY #30 tabs 05/08/23 Allergies Allergy/AdvReac Type Severity Reaction Status Date / Time ciprofloxacin (From Cipro) Allergy Severe Verified 05/08/23 17:43 metronidazole (From Flagyl) Allergy Severe Verified 05/08/23 17:43 Penicillins Allergy Severe Verified 05/08/23 17:43 Opioid HPI Opioid Management Most Recent Opioid Data: No Data to Display Review of Systems ROS Constitutional Reports: fever; Denies: chills Ears, nose, mouth, and throat Reports: nasal congestion; Denies: throat pain Cardiovascular Denies: chest pain Respiratory Reports: cough; Denies: shortness of breath Gastrointestinal Denies: nausea, vomiting or diarrhea Integumentary/Breast Denies: rash Neurological Denies: numbness in extremities or weakness in extremities Hematologic/Lymphatic Denies: easy bruising or easy bleeding [facility] Medical History (Updated 02/12/24 @ 18:01 by Hannah Chavez RN) delivery delivered ?O82 - Encounter for delivery without indication (ICD-10) Cholecystectomy planned Bilateral carpal tunnel syndrome ?G56.03 - Carpal tunnel syndrome, bilateral upper limbs (ICD-10) Left adrenal mass ?E27.8 - Other specified disorders of adrenal gland (ICD-10) Raynauds disease ?I73.00 - Raynaud's syndrome without gangrene (ICD-10) Nicotine dependence ?F17.200 - Nicotine dependence, unspecified, uncomplicated (ICD-10) GERD without esophagitis ?K21.9 - Gastro-esophageal reflux disease without esophagitis (ICD-10) Irritable bowel syndrome (IBS) ?K58.9 - Irritable bowel syndrome, unspecified (ICD-10) Left ventricular hypertrophy ?I51.7 - Cardiomegaly (ICD-10) Asthma ?J45.909 - Unspecified asthma, uncomplicated (ICD-10) Vitamin D deficiency ?E55.9 - Vitamin D deficiency, unspecified (ICD-10) SHARI (obstructive sleep apnea) ?G47.33 - Obstructive sleep apnea (adult) (pediatric) (ICD-10) Anxiety disorder with panic attacks ?F41.9 - Anxiety disorder, unspecified (ICD-10) Depression ?F32.A - Depression, unspecified (ICD-10) Hypertension ?I10 - Essential (primary) hypertension (ICD-10) Surgical History (Updated 02/12/24 @ 18:01 by Hannah Chavez RN) H/O cardiac catheterization ?Z98.890 - Other specified postprocedural states (ICD-10) H/O tubal ligation ?Z98.51 - Tubal ligation status (ICD-10) Social History Little interest or pleasure in doing things: not at all Feeling down, depressed, or hopeless: not at all Exam Narrative Exam Narrative: Gen.: Awake, alert, in no distress Head: Normocephalic, atraumatic ENT: Moist mucous membranes, bilateral TMs are bulging with minimal erythema, no significant injection or drainage. No pharyngeal erythema Respiratory: No respiratory distress, lungs clear bilaterally, no wheezing or rhonchi Cardio: Regular rate and rhythm Gastrointestinal: Abdomen is soft, nondistended and nontender to palpation Extremities: Moves extremities equally Psych: Normal mood and affect Neuro: No focal neuro deficit Skin: Warm, dry, intact Constitutional Vital Signs, click to edit/add: Last Vital Signs Temp 98.2 F 02/12/24 16:48 Pulse 83 02/12/24 16:48 Resp 18 02/12/24 16:48 BP 96/52 02/12/24 19:05 Pulse Ox 97 02/12/24 16:48 O2 Del Method Room Air 02/12/24 16:48 Course Vital Signs Vital signs: Vital Signs Temperature 98.2 F 02/12/24 16:48 Pulse Rate 83 02/12/24 16:48 Respiratory Rate 18 12/09/24 16:48 Blood Pressure 95/49 12/09/24 16:48 Pulse Oximetry 97 02/12/24 16:48 Oxygen Delivery Method Room Air 02/12/24 16:48 Temperature 98.2 F 02/12/24 16:48 Pulse Rate 83 02/12/24 16:48 Respiratory Rate 18 02/12/24 16:48 Blood Pressure 96/52 02/12/24 19:05 Pulse Oximetry 97 02/12/24 16:48 Oxygen Delivery Method Room Air 02/12/24 16:48 Medical Decision Making MDM Narrative Medical decision making narrative: 1711: EKG was obtained on arrival to the emergency department showing the patient has diffuse ST depression. We do not have any old EKGs to compare to. This EKG was reviewed by myself and attending physician and I contacted Dr. Chaudhry for cardiology at [facility]. Patient had an EKG at their facility in November, today's EKG was reviewed by Dr. Chaudhry for interventional cardiology and the EKG today is improved from November of earlier this year. Patient also has stable, unchanged EKGs from 2020 and 2021. She had an unremarkable echocardiogram in September of this year. No evidence of acute ischemic change or acute ST elevation noted on EKG today when compared to previous. Laboratory studies reviewed and noted showing the patient has acute kidney injury with significant elevation of creatinine compared to previous. She was given a liter of IV fluids from EMS as well as a liter of IV fluid from this emergency department. court recording monitor continue to rate low blood pressure however manual blood pressures have been stable, most recently 98/52. Chest x- ray shows the patient may have an early infiltrate in the right mid to lower lung. Azithromycin and Rocephin were given. Respiratory swabs are negative. Initial troponin was minimally elevated at 62, I suspect this may be due to the patient's acute kidney injury as she is chest pain-free in the ER with no new EKG changes. Most recent EKG from [facility] in November of this year was faxed, the ST depression is not new today. Given the patient's hypotension and acute kidney injury, she will be admitted for IV fluids, blood cultures were added in light of chest x-ray findings and low blood pressure. 2036: Repeat troponin went from 62-66. Hospitalist was made aware, and case was discussed with Dr. Peng for [facility] cardiology. Patient is known to their cardiology group. He related no indication for an e mergency transfer to [facility] and states that the patient is safe to stay at this facility. If her clinical condition changes, cardiology can be contacted again. Patient is stable at time of admission. She has no chest pain. Her vital signs are stable and she is resting comfortably. SUPERVISED APC VISIT, PHYSICIAN ATTESTATION: Based on the medical record the care appears appropriate. ? Medical Records Medical records reviewed: Yes I reviewed the patient's medical records Lab Data Lab results reviewed: Yes I reviewed the patient's lab results Labs: Lab Results 02/12/24 02/12/24 02/12/24 Range/Units 17:11 17:13 18:14 WBC 7.6 (4.0-11.0) 10^3/uL RBC 3.49 L (4.20-5.40) 10^6/uL Hgb 10.2 L (12.0-16.0) g/dL Hct 31.9 L (36.0-48.0) % MCV 91.4 (81.0-99.0) fL MCH 29.2 (26.7-34.0) pg MCHC 32.0 (29.9-35.2) g/dL RDW 14.8 (11.0-15.0) % Plt Count 202 (150-450) 10^3/uL MPV 9.7 (9.5-13.5) fL Neut % (Auto) 71.5 (43.0-75.0) % Lymph % (Auto) 17.1 L (20.5-60.0) % Davison % (Auto) 9.9 (1.7-12.0) % Eos % (Auto) 0.4 L (0.9-7.0) % Baso % (Auto) 0.7 (0.2-2.0) % Neut # (Auto) 5.4 (1.4-6.5) 10^3/uL Lymph # (Auto) 1.3 (1.2-3.8) 10^3/uL Davison # (Auto) 0.8 (0.3-0.8) 10^3/uL Eos # (Auto) 0.0 (0.0-0.7) 10^3/uL Baso # (Auto) 0.1 (0.0-0.1) 10^3/uL Abs Immat Gran (auto) 0.03 (0.00-0.03) 10^3/uL Imm/Tot Granulo (auto) 0.4 (0.0-0.5) % VBG pH 7.294 L (7.330-7.430) VBG pCO2 49.5 (40.0-52.0) mmHg Sodium 141 (136-145) mmol/L Potassium 3.6 (3.5-5.1) mmol/L Chloride 107 (98-107) mmol/L Carbon Dioxide 26.4 (21.0-32.0) mmol/L Anion Gap 11.2 BUN 34.0 H (7.0-18.0) mg/dL Creatinine 2.24 H (0.55-1.02) mg/dL Est GFR ( Amer) 29 L (>=60 mL/min/1.73m^2) Est GFR (Non-Af Amer) 24 L (>=60 mL/min/1.73m^2) BUN/Creatinine Ratio 15.2 Glucose 123 H (74-106) mg/dL Lactate 1.4 (0.4-2.0) mmol/L Calcium 8.4 L (8.5-10.1) mg/dL Total Bilirubin 0.4 (0.2-1.0) mg/dL AST 15 (15-37) U/L ALT 17 (14-59) U/L Alkaline Phosphatase 78 (46-116) U/L Troponin I High Sens 62.3 H* (4.0-51.3) pg/mL Total Protein 6.0 L (6.4-8.2) g/dL Albumin 2.4 L (3.4-5.0) g/dL Globulin 3.6 g/dL Albumin/Globulin Ratio 0.7 TSH 2.366 (0.358-3.740) uIU/mL Urine Color (YELLOW) Urine Clarity (CLEAR) Urine pH (5.0-9.0) Ur Specific [place] (1.005-1.025) Urine Protein (NEG/TRACE) mg/dL Urine Glucose (UA) (NEGATIVE) mg/dL Urine Ketones (NEGATIVE) mg/dL Urine Occult Blood (NEGATIVE) Urine Nitrite (NEGATIVE) Urine Bilirubin (NEGATIVE) Urine Urobilinogen (0.2-1.0) EU/dL Ur Leukocyte Esterase (NEGATIVE) Urine RBC (0-2) #/HPF Urine WBC (NONE SEEN) #/HPF Ur Squamous Epith Cells (NONE/RARE) #/LPF Urine Crystals (None Seen) #/HPF Urine Bacteria (NONE SEEN) #/HPF Urine Casts (NONE SEEN) #/LPF Urine Mucus (NONE SEEN) Ur Culture Indicated? Influenza Type A Ag Negative Influenza Type B Ag Negative SARS-CoV-2 Ag (CV2AG) Negative (NEGATIVE) 02/12/24 02/12/24 Range/Units 19:14 19:36 WBC (4.0-11.0) 10^3/uL RBC (4.20-5.40) 10^6/uL Hgb (12.0-16.0) g/dL Hct (36.0-48.0) % MCV (81.0-99.0) fL MCH (26.7-34.0) pg MCHC (29.9-35.2) g/dL RDW (11.0-15.0) % Plt Count (150-450) 10^3/uL MPV (9.5-13.5) fL Neut % (Auto) (43.0-75.0) % Lymph % (Auto) (20.5-60.0) % Davison % (Auto) (1.7-12.0) % Eos % (Auto) (0.9-7.0) % Baso % (Auto) (0.2-2.0) % Neut # (Auto) (1.4-6.5) 10^3/uL Lymph # (Auto) (1.2-3.8) 10^3/uL Davison # (Auto) (0.3-0.8) 10^3/uL Eos # (Auto) (0.0-0.7) 10^3/uL Baso # (Auto) (0.0-0.1) 10^3/uL Abs Immat Gran (auto) (0.00-0.03) 10^3/uL Imm/Tot Granulo (auto) (0.0-0.5) % VBG pH (7.330-7.430) VBG pCO2 (40.0-52.0) mmHg Sodium (136-145) mmol/L Potassium (3.5-5.1) mmol/L Chloride (98-107) mmol/L Carbon Dioxide (21.0-32.0) mmol/L Anion Gap BUN (7.0-18.0) mg/dL Creatinine (0.55-1.02) mg/dL Est GFR ( Amer) (>=60 mL/min/1.73m^2) Est GFR (Non-Af Amer) (>=60 mL/min/1.73m^2) BUN/Creatinine Ratio Glucose (74-106) mg/dL Lactate (0.4-2.0) mmol/L Calcium (8.5-10.1) mg/dL Total Bilirubin (0.2-1.0) mg/dL AST (15-37) U/L ALT (14-59) U/L Alkaline Phosphatase (46-116) U/L Troponin I High Sens 66.6 H* (4.0-51.3) pg/mL Total Protein (6.4-8.2) g/dL Albumin (3.4-5.0) g/dL Globulin g/dL Albumin/Globulin Ratio TSH (0.358-3.740) uIU/mL Urine Color Lt. yellow (YELLOW) Urine Clarity Clear (CLEAR) Urine pH 6.0 (5.0-9.0) Ur Specific [place] 1.015 (1.005-1.025) Urine Protein Negative (NEG/TRACE) mg/dL Urine Glucose (UA) Negative (NEGATIVE) mg/dL Urine Ketones Negative (NEGATIVE) mg/dL Urine Occult Blood Moderate A (NEGATIVE) Urine Nitrite Negative (NEGATIVE) Urine Bilirubin Negative (NEGATIVE) Urine Urobilinogen 1.0 (0.2-1.0) EU/dL Ur Leukocyte Esterase Trace A (NEGATIVE) Urine RBC 2-5 A (0-2) #/HPF Urine WBC 2-5 A (NONE SEEN) #/HPF Ur Squamous Epith Cells Few A (NONE/RARE) #/LPF Urine Crystals None seen (None Seen) #/HPF Urine Bacteria Small A (NONE SEEN) #/HPF Urine Casts None seen (NONE SEEN) #/LPF Urine Mucus None seen (NONE SEEN) Ur Culture Indicated? Yes Influenza Type A Ag Influenza Type B Ag SARS-CoV-2 Ag (CV2AG) (NEGATIVE) Imaging Data Chest x-ray: Radiologist's impression: ITS Impressions Chest X-Ray 02/12/24 16:50 IMPRESSION: There are a few increased markings in the right mid to lower lung field most likely representing atelectasis. An early infiltrate cannot be excluded. No consolidation is noted. Electronically authenticated by: URIEL SPIVEY Date: 02/12/2024 17:59 ECG Data Attestation: I personally reviewed and interpreted this ECG as follows: (Normal sinus rhythm at a rate of 79, diffuse ST depression and T wave inversion. No acute ST elevation, no ectopy. EKG reviewed by attending physician. EKG is compared to , of November 2023 from [facility] and is unchanged.) Discharge Plan Discharge Chief Complaint: Dizziness Time of Disposition Decision: 20:41 Prescriptions / Home Meds: No Action aspirin 81 mg capsule 81 mg PO DAILY Qty: 30 0RF clopidogrel [Plavix] 75 mg tablet 75 mg PO DAILY Qty: 30 0RF atorvastatin 40 mg tablet 40 mg PO DAILY Qty: 30 0RF gabapentin 300 mg capsule 600 mg PO TID hydroxyzine pamoate 50 mg capsule 25 mg PO Q8H PRN (Reason: anxiety) olmesartan-hydrochlorothiazide 20-12.5 mg tablet 1 tab PO DAILY omeprazole 40 mg capsule,delayed release(DR/EC) 40 mg PO BID albuterol sulfate 90 mcg/actuation HFA aerosol inhaler 1 puff INHALATION Q4H PRN (Reason: shortness of breath or wheezing) amitriptyline 50 mg tablet 75 mg PO .QHS bupropion HCl 150 mg tablet extended release 24 hr 150 mg PO DAILY cholecalciferol (vitamin D3) 50 mcg (2,000 unit) tablet 50 mcg PO DAILY lorazepam 1 mg tablet 1 mg PO TID olanzapine 5 mg tablet 5 mg PO BID Print Language: Ugandan
--- NOTE | 2024-02-12 16:54 | ECG_ITS ---
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
[2024-02-12 17:20] LABS: Basophils Absolute Auto 0.1 10^3/uL (0.0-0.1); Basophils Percent Auto 0.7 % (0.2-2.0); Eosinophils Percent Auto 0.4 % (0.9-7.0); Hematocrit 31.9 % (36.0-48.0); Hemoglobin 10.2 g/dL (12.0-16.0); Immature Granulocytes Abs Auto 0.03 10^3/uL (0.00-0.03); Immature Granulocytes Pct Auto 0.4 % (0.0-0.5); Lymphocytes Absolute Auto 1.3 10^3/uL (1.2-3.8); Lymphocytes Percent Auto 17.1 % (20.5-60.0); Mean Corpuscular Hemoglobin 29.2 pg (26.7-34.0); Mean Corpuscular Volume 91.4 fL (81.0-99.0); Mean Platelet Volume 9.7 fL (9.5-13.5); Monocytes Absolute Auto 0.8 10^3/uL (0.3-0.8); Monocytes Percent Auto 9.9 % (1.7-12.0); Neutrophils Absolute Auto 5.4 10^3/uL (1.4-6.5); Neutrophils Percent Auto 71.5 % (43.0-75.0); Platelet Count 202 10^3/uL (150-450); Red Blood Count 3.49 10^6/uL (4.20-5.40); Red Cell Distribution Width 14.8 % (11.0-15.0); White Blood Count 7.6 10^3/uL (4.0-11.0)
[2024-02-12 17:33] LABS: Influenza Virus A Antigen Negative; Influenza Virus B Antigen Negative; Internal Control Within Normal Limits; SARS-CoV-2 Ag NEGATIVE (NEGATIVE)
[2024-02-12 17:40] LABS: Lactate/Lactic Acid 1.4 mmol/L (0.4-2.0)
[2024-02-12 17:48] LABS: Alanine Aminotransferase 17 U/L (14-59); Albumin Globulin Ratio 0.7; Albumin Level 2.4 g/dL (3.4-5.0); Alkaline Phosphatase 78 U/L (46-116); Anion Gap 11.2; Aspartate Amino Transferase 15 U/L (15-37); BUN Creatinine Ratio 15.2; Bilirubin Total 0.4 mg/dL (0.2-1.0); Calcium 8.4 mg/dL (8.5-10.1); Carbon Dioxide 26.4 mmol/L (21.0-32.0); Chloride 107 mmol/L (98-107); Estimated GFR (African America 29 (>=60 mL/min/1.73m^2); Estimated GFR (Non-African Ame 24 (>=60 mL/min/1.73m^2); Globulin 3.6 g/dL; Glucose 123 mg/dL (74-106); Potassium 3.6 mmol/L (3.5-5.1); Sodium 141 mmol/L (136-145); Thyroid Stimulating Hormone 2.366 uIU/mL (0.358-3.740)
[2024-02-12] MEDS: 0.9 % SODIUM CHLORIDE 1,000 ML 999 ML IV (17:54)
[2024-02-12 17:55] LABS: Troponin I High Sensitivity 62.3 pg/mL (4.0-51.3)
[2024-02-12 18:31] LABS: PCO2 VBG 49.5 mmHg (40.0-52.0); pH VBG 7.294 (7.330-7.430)
[2024-02-12] MEDS: CEFTRIAXONE 1,000 MG in 0.9 % SODIUM CHLORIDE 50 ML 100 MG IV (18:40)
[2024-02-12] MEDS: AZITHROMYCIN 500 MG in 0.9 % SODIUM CHLORIDE 250 ML 250 MG IV (19:26)
[2024-02-12 19:42] LABS: Troponin I High Sensitivity 66.6 pg/mL (4.0-51.3)
[2024-02-12 20:15] LABS: Bilirubin Urine NEGATIVE (NEGATIVE); Blood Urine MODERATE (NEGATIVE); Clarity Urine CLEAR (CLEAR); Color Urine LT. YELLOW (YELLOW); Glucose Urine UA NEGATIVE (NEGATIVE); Ketones Urine NEGATIVE (NEGATIVE); Leukocyte Esterase Urine TRACE (NEGATIVE); Nitrite Urine NEGATIVE (NEGATIVE); Protein Urine NEGATIVE (NEG/TRACE); Specific Gravity Urine 1.015 (1.005-1.025)
[2024-02-12 20:17] LABS: Urine Microscopic Indicated YES
[2024-02-12 20:33] LABS: Bacteria Urine SMALL #/HPF (NONE SEEN)
[2024-02-12 20:34] LABS: Crystals Seen? None Seen #/HPF (None Seen); Mucus Urine NONE SEEN (NONE SEEN); Squamous Epithelial Cell Urine FEW #/LPF (NONE/RARE)
[2024-02-12 20:35] LABS: Cast Seen? NONE SEEN #/LPF (NONE SEEN); Urine Culture Indicated YES
[2024-02-12 23:47] LABS: Troponin I High Sensitivity 66.9 pg/mL (4.0-51.3)
[2024-02-12] MEDS: AMITRIPTYLINE HCL 50 MG TABLET 75 MG PO (23:50)
[2024-02-12] MEDS: 0.9 % SODIUM CHLORIDE 1,000 ML 125 ML IV (23:51)
[2024-02-13] VITALS (17 sets, daily range): BP systolic 91–120; BP diastolic 57–78; PULSE 65–88; TEMP 36.3–36.8; O2SAT 93–98; BMI 40.1
--- NOTE | 2024-02-13 06:00 | ECG_ITS ---
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1980 Requested By: MILLIE MANDEL Order Number: [id number] Reading MD: PAT CALLAHAN Measurements Intervals [place] Rate: 77 P: 60 [place]: 136 QRS: 17 QRSD: 118 T: 193 QT: 396 QTc: 449 Interpretive Statements SINUS RHYTHM LEFT VENTRICULAR HYPERTROPHY AND ST-T CHANGE [VOLTAGE CRITERIA PLUS ST/T ABNORMALITY] PROBABLE LATERAL MYOCARDIAL INFARCTION [35 ms Q WAVE IN I/aVL/V5/V6], OF INDETERMINATE AGE Compared to ECG 02/12/2024 16:54:44 Left ventricular hypertrophy now present Myocardial infarct finding now present Possible ischemia no longer present ST (T wave) deviation still present Electronically Signed On 02-15-2024 8:01:00 EST by PAT CALLAHAN
[2024-02-13 06:16] LABS: Basophils Percent Auto 0.7 % (0.2-2.0); Eosinophils Percent Auto 0.2 % (0.9-7.0); Hematocrit 31.3 % (36.0-48.0); Immature Granulocytes Abs Auto 0.02 10^3/uL (0.00-0.03); Immature Granulocytes Pct Auto 0.3 % (0.0-0.5); Lymphocytes Absolute Auto 1.3 10^3/uL (1.2-3.8); Lymphocytes Percent Auto 21.6 % (20.5-60.0); Mean Corpuscular HGB Conc 31.9 g/dL (29.9-35.2); Mean Corpuscular Volume 90.7 fL (81.0-99.0); Mean Platelet Volume 9.8 fL (9.5-13.5); Monocytes Absolute Auto 0.5 10^3/uL (0.3-0.8); Neutrophils Absolute Auto 4.1 10^3/uL (1.4-6.5); Neutrophils Percent Auto 69.2 % (43.0-75.0); Platelet Count 208 10^3/uL (150-450); Red Blood Count 3.45 10^6/uL (4.20-5.40); Red Cell Distribution Width 14.6 % (11.0-15.0)
[2024-02-13 06:21] LABS: Estimated Average Glucose 126 mg/dL
--- NOTE | 2024-02-13 06:22 | CA_ITS ---
Patient Name: SHAHLA THAPA MR#: [id number] : 1980 Exam Date: 02/13/2024 Ordering Doctor: DR PAT CALLAHAN . ECHOCARDIOGRAM REPORT PROCEDURE: CA ECHO LIMITED INDICATIONS: Dyspnea COMPARISON: None. DESCRIPTION: Limited ECHOCARDIOGRAM Real-time transthoracic echocardiography with 2D and M-mode performed. QUALITY: Technical quality was limited. LEFT VENTRICLE: Normal chamber size. Normal left ventricular wall thickness. Global left ventricular systolic function is normal. Visual estimation of left ventricular ejection fraction is 55-60%. LV EF: Normal left ventricular ejection fraction, (>55%). DIASTOLIC: ATRIAL SEPTUM: LEFT ATRIUM: Normal chamber size. RIGHT ATRIUM: Normal chamber size. RIGHT VENTRICLE: Normal chamber size. Normal right ventricular systolic function. TRICUSPID VALVE: Normal mobility and thickness. MITRAL VALVE: Normal mobility and thickness. There is no mitral annular calcification. AORTIC VALVE: Normal leaflet mobility. AORTIC ROOT: Normal diameter and appearance. PULMONIC VALVE: Not well visualized. PERICARDIUM: No evidence of pericardial effusion. IVC: Collapses with inspirations. PLEURA: CONCLUSION: 1. Normal ventricular systolic function. LVEF is estimated at 55 to 60%. 2. No pericardial effusion. 3. Limited study performed with no Doppler interrogation as requested. Adult Echocardiography Procedure Report Left Ventricle LVEDD (3.7 - 5.6 cm): 4.01 cm LVESD (2.2 - 4.0 cm): 2.69 cm LVIVS thickness (0.6 - 1.2 cm): 1.14 cm LVPW thickness (0.5 - 1.0 cm): 1.18 cm LVOT Diameter 1.86 cm Left Atrium LA Volume Index (2D A2C): 27.43 ml/m2 Left Atrium Systolic Dimension: 4.65 cm Mitral Valve Right Ventricle RV Internal Diastolic Dimension: 3.16 cm Aorta AO Root Diam: 3.03 cm Aortic Valve Tricuspid Valve Pulmonic Valve Right Atrium Right Atrium Systolic Pressure: 31.40 ml, 31.40 ml Dictated by: Kraig Rodriguez M.D. on 02/13/2024 at 19:27 Approved by: Kraig Rodriguez M.D. on 02/13/2024 at 19:28
[2024-02-13 06:25] LABS: Magnesium 2.3 mg/dL (1.8-2.4)
[2024-02-13 06:30] LABS: Chol HDL Ratio 3.5; Cholesterol 124 mg/dL (<=200); HDL Cholesterol 35 mg/dL (40-60); Triglycerides 80 mg/dL (<=150)
[2024-02-13 06:31] LABS: Alanine Aminotransferase 18 U/L (14-59); Albumin Globulin Ratio 0.6; Albumin Level 2.4 g/dL (3.4-5.0); Alkaline Phosphatase 85 U/L (46-116); Anion Gap 12.1; Aspartate Amino Transferase 14 U/L (15-37); BUN Creatinine Ratio 16.7; Bilirubin Total 0.3 mg/dL (0.2-1.0); Calcium 8.4 mg/dL (8.5-10.1); Chloride 110 mmol/L (98-107); Estimated GFR (African America 45 (>=60 mL/min/1.73m^2); Estimated GFR (Non-African Ame 37 (>=60 mL/min/1.73m^2); Globulin 3.8 g/dL; Glucose 110 mg/dL (74-106); Potassium 4.1 mmol/L (3.5-5.1); Sodium 142 mmol/L (136-145); Total Protein 6.2 g/dL (6.4-8.2)
[2024-02-13 07:01] LABS: Troponin I High Sensitivity 60.3 pg/mL (4.0-51.3)
[2024-02-13] MEDS: 0.9 % SODIUM CHLORIDE 1,000 ML 125 ML IV ×2 (08:27→16:33)
[2024-02-13] MEDS: NICOTINE 21 MG PATCH.TD24 TD (08:28)
[2024-02-13] MEDS: CHOLECALCIFEROL (VITAMIN D3) 25 MCG/1,000 UNITS TABLET 50 MCG PO (08:28)
[2024-02-13] MEDS: OLANZapine 5 MG TABLET PO ×2 (08:28→21:55)
[2024-02-13] MEDS: BUPROPION HCL 150 MG XL TABLET 24H PO (08:28)
[2024-02-13] MEDS: ATORVASTATIN CALCIUM 40 MG TABLET PO (08:28)
[2024-02-13] MEDS: ENOXAPARIN SODIUM 40 MG/0.4 ML SYRINGE SUBQ (08:28)
[2024-02-13] MEDS: OMEPRAZOLE 40 MG CAPSULE.DR PO ×2 (08:28→21:56)
[2024-02-13] MEDS: ASPIRIN 81 MG TABLET.DR PO (08:29)
[2024-02-13] MEDS: CLOPIDOGREL BISULFATE 75 MG TABLET PO (08:29)
[2024-02-13] MEDS: LORAZEPAM 1 MG TABLET PO (08:32)
--- NOTE | 2024-02-13 09:25 | P.HP_ITS ---
HPI H&P: HPI History of Present Illness Chief complaint: IAM HYPOTN PNEUMONIA Narrative: Patient was seen and evaluated urgent care, found to have severe hypotension with blood pressure 60/48, encouraged to present to the emergency room. In ER found to have abnormal EKG elevated high-sensitivity troponin and acute renal failure. When I saw patient up on the medical surgical floor, resting comfortably bed seems very fatigued, denied chest pain or shortness of breath. Opioid HPI Opioid Management Most Recent Pain and Opioid Data: Last Pain Scale 0 02/13/24 08:36 02/13/24 Last Pain Assessment 02/13/24 09:14 Last ORT Total Score 4 02/12/24 21:58 02/12/24 Last ORT Risk Category Moderate Risk 02/12/24 21:58 02/12/24 Review of Systems ROS Status of ROS 10 or more systems reviewed and unremark able except as noted in history and below [facility] Medical History (Updated 02/13/24 @ 10:07 by Frandy Mendez MD) Schizo affective schizophrenia ?F25.9 - Schizoaffective disorder, unspecified (ICD-10) delivery delivered ?O82 - Encounter for delivery without indication (ICD-10) Cholecystectomy planned Bilateral carpal tunnel syndrome ?G56.03 - Carpal tunnel syndrome, bilateral upper limbs (ICD-10) Left adrenal mass ?E27.8 - Other specified disorders of adrenal gland (ICD-10) Raynauds disease ?I73.00 - Raynaud's syndrome without gangrene (ICD-10) Nicotine dependence ?F17.200 - Nicotine dependence, unspecified, uncomplicated (ICD-10) GERD without esophagitis ?K21.9 - Gastro-esophageal reflux disease without esophagitis (ICD-10) Irritable bowel syndrome (IBS) ?K58.9 - Irritable bowel syndrome, unspecified (ICD-10) Left ventricular hypertrophy ?I51.7 - Cardiomegaly (ICD-10) Asthma ?J45.909 - Unspecified asthma, uncomplicated (ICD-10) Vitamin D deficiency ?E55.9 - Vitamin D deficiency, unspecified (ICD-10) SHARI (obstructive sleep apnea) ?G47.33 - Obstructive sleep apnea (adult) (pediatric) (ICD-10) Anxiety disorder with panic attacks ?F41.9 - Anxiety disorder, unspecified (ICD-10) Depression ?F32.A - Depression, unspecified (ICD-10) Hypertension ?I10 - Essential (primary) hypertension (ICD-10) Surgical History (Updated 02/13/24 @ 03:16 by America Gayle RN) H/O removal of cyst ?Z98.890 - Other specified postprocedural states (ICD-10) H/O cardiac catheterization ?Z98.890 - Other specified postprocedural states (ICD-10) H/O tubal ligation ?Z98.51 - Tubal ligation status (ICD-10) Family History (Updated 02/13/24 @ 03:17 by America Gayle RN) Mother Family history of stroke Family history of cancer Social History Highest level of school completed/degree received: high school graduate Little interest or pleasure in doing things: not at all Feeling down, depressed, or hopeless: not at all Meds Home Medications and Allergies Home Medications ?Medication ?Instructions ?Recorded ?Confirmed ?Type aspirin 81 mg capsule 81 mg PO DAILY #30 caps 05/08/23 02/12/24 Rx atorvastatin 40 mg tablet 40 mg PO DAILY #30 tabs 05/08/23 02/12/24 Rx clopidogrel 75 mg tablet (Plavix) 75 mg PO DAILY #30 tabs 05/08/23 02/12/24 Rx gabapentin 300 mg capsule 600 mg PO TID 05/09/23 02/12/24 History hydroxyzine pamoate 50 mg capsule 25 mg PO Q8H PRN anxiety 05/09/23 02/12/24 History olmesartan 20 1 tab PO DAILY 05/09/23 02/12/24 History mg-hydrochlorothiazide 12.5 mg tablet omeprazole 40 mg capsule,delayed 40 mg PO BID 05/09/23 02/12/24 History release albuterol sulfate 90 mcg/actuation 1 puff inhalation Q4H PRN 02/12/24 02/12/24 History aerosol inhaler shortness of breath or wheezing amitriptyline 50 mg tablet 75 mg PO .QHS 02/12/24 02/12/24 History bupropion HCl 150 mg 24 hr tablet, 150 mg PO DAILY 02/12/24 02/12/24 History extended release cholecalciferol (vitamin D3) 50 50 mcg PO DAILY 02/12/24 02/12/24 History mcg (2,000 unit) tablet lorazepam 1 mg tablet 1 mg PO TID 02/12/24 02/12/24 History olanzapine 5 mg tablet 5 mg PO BID 02/12/24 02/12/24 History Allergies Allergy/AdvReac Type Severity Reaction Status Date / Time ciprofloxacin (From Cipro) Allergy Severe Verified 05/08/23 17:43 metronidazole (From Flagyl) Allergy Severe Verified 05/08/23 17:43 Penicillins Allergy Severe Verified 05/08/23 17:43 Exam Constitutional Vital Signs, click to edit/add: Last Vital Signs Temp 98.0 F 02/13/24 07:24 Pulse 84 02/13/24 08:00 Resp 18 02/13/24 07:24 BP 112/70 02/13/24 07:24 Pulse Ox 93 L 02/13/24 07:24 O2 Del Method Room Air 02/13/24 07:24 Documenting provider has reviewed patient's vital signs: yes Common normals: apparent distress (Very fatigued) Chest Common normals: inspection of chest normal and palpation of chest normal Respiratory Common normals: normal respiratory effort and no retractions Auscultation: rhonchi and egophony Cardio Common normals: regular rate and regular rhythm GI Common normals: Normal to inspection, nondistended, normoactive bowel sounds present Neuro Carol Coma Scale: document GCS findings Common normals: oriented x3 and CN's II-XII intact bilaterally Results Labs Labs: Short CBC 02/12/24 02/13/24 Range/Units 17:11 05:39 WBC 7.6 6.0 (4.0-11.0) 10^3/uL Hgb 10.2 L 10.0 L (12.0-16.0) g/dL Hct 31.9 L 31.3 L (36.0-48.0) % Plt Count 202 208 (150-450) 10^3/uL BMP 02/12/24 02/13/24 17:11 05:39 Sodium 141 142 Potassium 3.6 4.1 Chloride 107 110 H Carbon Dioxide 26.4 24.0 BUN 34.0 H 25.0 H Creatinine 2.24 H 1.50 H Glucose 123 H 110 H Calcium 8.4 L 8.4 L Liver Function 02/12/24 02/13/24 Range/Units 17:11 05:39 Total Bilirubin 0.4 0.3 (0.2-1.0) mg/dL AST 15 14 L (15-37) U/L ALT 17 18 (14-59) U/L Alkaline Phosphatase 78 85 (46-116) U/L Albumin 2.4 L 2.4 L (3.4-5.0) g/dL Urine 02/12/24 Range/Units 19:36 Urine Color Lt. yellow (YELLOW) Urine Clarity Clear (CLEAR) Urine pH 6.0 (5.0-9.0) Ur Specific [place] 1.015 (1.005-1.025) Urine Protein Negative (NEG/TRACE) mg/dL Urine Glucose (UA) Negative (NEGATIVE) mg/dL ABG ABG results: 02/12/24 18:14 VBG pH 7.294 L VBG pCO2 49.5 Assessment and Plan Assessment and Plan (1) Acute hypotension: (2) Left ventricular hypertrophy: (3) Pneumonia: (4) Acute renal failure: Plan Uncontrolled hypertension, acute renal failure (baseline creatinine 0.7, admission creatinine of 2.24 which is 320.0% above baseline), abnormal EKG with inferior lateral T wave depression, elevated high-sensitivity troponin, x-ray with consistent with right lower lobe pneumonia Acute renal failure-slow hydration secondary to the history of coronary artery disease and likely high risk for acute combined congestive heart failure, improved today but still 200% above baseline Elevated high-sensitivity troponin, consult to cardiology, significantly abnormal EKG but baseline from previous, check echocardiogram last coronary catheterization was 2 years ago Severe hypotension documented 60/48-improving but patient does have a history of hypertension Right lower lobe pneumonia-IV antibiotics as needed aerosol treatments Iron deficiency anemia-monitor daily Depression-continue with home medications History of coronary artery disease-continue with home medications Generalized anxiety disorder-continue with home medications GERD-continue with home medications Admission findings: Patient with acute renal failure with 320% above baseline, history of coronary artery disease so unable to be aggressive with fluid resuscitation, medically necessary treatment will span 2 midnights. Inpatient status.
--- NOTE | 2024-02-13 09:27 | CM.NOTE ---
Rounds made with Dr. Mendez, discussed with pt about cardiac echo today and elevated trop. No discharge today.
--- NOTE | 2024-02-13 09:55 | PM.CACN ---
History of Present Illness History of Present Illness Consult date: 02/13/24 Requesting physician: Frandy Mendez Consult reason: hypotension Chief complaint: IAM HYPOTN PNEUMONIA Narrative: 44-year-old female with a history of peripheral vascular disease, hypertension previously seen by Dr Vasquez for concern of palpitatons and ? WPW and Dr Pichardo for PAD presented to the emergency department by ambulance for hypotension. She has been experiencing URI for the last 3 to 4 days and on presentation was markedly hypotensive at 60/40 following which she was administered IVF and improved to systolic of 95mmHg. She denies syncope or falls. She had fever at the beginning of the course of her illness. She has not had any vomiting or diarrhea. She did take her regular blood pressure medication on top of this. She has had some sputum production with coughing. She reports minimal headache with coughing but no other significant pain or nausea. Her blood work revealed elevated troponin of 60's in the setting iof IAM. EKG revealed TWI in the anterolateral leads that has been present even before with concern of preexcitation. She had Holter before which revealed WCT as well as NCT c/w SVT. Pt has felt much better since admission and doing well. Review of Systems ROS Status of ROS 10 or more systems reviewed and unremarkable except as noted in history and below Constitutional Reports: fever; Denies: chills Ears, nose, mouth, and throat Reports: nasal congestion; Denies: throat pain Cardiovascular Denies: chest pain Respiratory Reports: cough; Denies: shortness of breath Gastrointestinal Denies: nausea, vomiting or diarrhea Integumentary/Breast Denies: rash Neurological Denies: numbness in extremities or weakness in extremities Hematologic/Lymphatic Denies: easy bruising or easy bleeding [facility] Medical History Schizo affective schizophrenia ?F25.9 - Schizoaffective disorder, unspecified (ICD-10) delivery delivered ?O82 - Encounter for delivery without indication (ICD-10) Cholecystectomy planned Bilateral carpal tunnel syndrome ?G56.03 - Carpal tunnel syndrome, bilateral upper limbs (ICD-10) Left adrenal mass ?E27.8 - Other specified disorders of adrenal gland (ICD-10) Raynauds disease ?I73.00 - Raynaud's syndrome without gangrene (ICD-10) Nicotine dependence ?F17.200 - Nicotine dependence, unspecified, uncomplicated (ICD-10) GERD without esophagitis ?K21.9 - Gastro-esophageal reflux disease without esophagitis (ICD-10) Irritable bowel syndrome (IBS) ?K58.9 - Irritable bowel syndrome, unspecified (ICD-10) Left ventricular hypertrophy ?I51.7 - Cardiomegaly (ICD-10) Asthma ?J45.909 - Unspecified asthma, uncomplicated (ICD-10) Vitamin D deficiency ?E55.9 - Vitamin D deficiency, unspecified (ICD-10) SHARI (obstructive sleep apnea) ?G47.33 - Obstructive sleep apnea (adult) (pediatric) (ICD-10) Anxiety disorder with panic attacks ?F41.9 - Anxiety disorder, unspecified (ICD-10) Depression ?F32.A - Depression, unspecified (ICD-10) Hypertension ?I10 - Essential (primary) hypertension (ICD-10) Surgical History H/O removal of cyst ?Z98.890 - Other specified postprocedural states (ICD-10) H/O cardiac catheterization ?Z98.890 - Other specified postprocedural states (ICD-10) H/O tubal ligation ?Z98.51 - Tubal ligation status (ICD-10) Family History Mother Family history of stroke Family history of cancer Social History Highest level of school completed/degree received: high school graduate Little interest or pleasure in doing things: not at all Feeling down, depressed, or hopeless: not at all Meds Home Medications and Allergies Home Medications ?Medication ?Instructions ?Recorded ?Confirmed ?Type aspirin 81 mg capsule 81 mg PO DAILY #30 caps 05/08/23 02/12/24 Rx atorvastatin 40 mg tablet 40 mg PO DAILY #30 tabs 05/08/23 02/12/24 Rx clopidogrel 75 mg tablet (Plavix) 75 mg PO DAILY #30 tabs 05/08/23 02/12/24 Rx gabapentin 300 mg capsule 600 mg PO TID 05/09/23 02/12/24 History hydroxyzine pamoate 50 mg capsule 25 mg PO Q8H PRN anxiety 05/09/23 02/12/24 History olmesartan 20 1 tab PO DAILY 05/09/23 02/12/24 History mg-hydrochlorothiazide 12.5 mg tablet omeprazole 40 mg capsule,delayed 40 mg PO BID 05/09/23 02/12/24 History release albuterol sulfate 90 mcg/actuation 1 puff inhalation Q4H PRN 02/12/24 02/12/24 History aerosol inhaler shortness of breath or wheezing amitriptyline 50 mg tablet 75 mg PO .QHS 02/12/24 02/12/24 History bupropion HCl 150 mg 24 hr tablet, 150 mg PO DAILY 02/12/24 02/12/24 History extended release cholecalciferol (vitamin D3) 50 50 mcg PO DAILY 02/12/24 02/12/24 History mcg (2,000 unit) tablet lorazepam 1 mg tablet 1 mg PO TID 02/12/24 02/12/24 History olanzapine 5 mg tablet 5 mg PO BID 02/12/24 02/12/24 History Allergies Allergy/AdvReac Type Severity Reaction Status Date / Time ciprofloxacin (From Cipro) Allergy Severe Verified 05/08/23 17:43 metronidazole (From Flagyl) Allergy Severe Verified 05/08/23 17:43 Penicillins Allergy Severe Verified 05/08/23 17:43 Exam Narrative Exam Narrative: Gen.: Awake, alert, in no distress Head: Normocephalic, atraumatic ENT: Moist mucous membranes, bilateral TMs are bulging with minimal erythema, no significant injection or drainage. No pharyngeal erythema Respiratory: No respiratory distress, lungs clear bilaterally, no wheezing or rhonchi Cardio: Regular rate and rhythm Gastrointestinal: Abdomen is soft, nondistended and nontender to palpation Extremities: Moves extremities equally Psych: Normal mood and affect Neuro: No focal neuro deficit Skin: Warm, dry, intact Constitutional Vital Signs, click to edit/add: Last Vital Signs Temp 98.0 F 02/13/24 07:24 Pulse 84 02/13/24 08:00 Resp 18 02/13/24 07:24 BP 112/70 02/13/24 07:24 Pulse Ox 93 L 02/13/24 07:24 O2 Del Method Room Air 02/13/24 07:24 Results Labs and Meds Lab results: Cardiac Enzymes 02/12/24 02/13/24 Range/Units 17:11 05:39 AST 15 14 L (15-37) U/L Lipids 02/13/24 Range/Units 05:39 Triglycerides 80 (<=150) mg/dL Cholesterol 124 (<=200) mg/dL HDL Cholesterol 35 L (40-60) mg/dL Cholesterol/HDL Ratio 3.5 CBC 02/12/24 02/13/24 Range/Units 17:11 05:39 WBC 7.6 6.0 (4.0-11.0) 10^3/uL RBC 3.49 L 3.45 L (4.20-5.40) 10^6/uL Hgb 10.2 L 10.0 L (12.0-16.0) g/dL Hct 31.9 L 31.3 L (36.0-48.0) % Plt Count 202 208 (150-450) 10^3/uL Neut # (Auto) 5.4 4.1 (1.4-6.5) 10^3/uL Lymph # (Auto) 1.3 1.3 (1.2-3.8) 10^3/uL [place] # (Auto) 0.8 0.5 (0.3-0.8) 10^3/uL Eos # (Auto) 0.0 0.0 (0.0-0.7) 10^3/uL Baso # (Auto) 0.1 0.0 (0.0-0.1) 10^3/uL Comprehensive Metabolic Panel 02/12/24 02/13/24 Range/Units 17:11 05:39 Sodium 141 142 (136-145) mmol/L Potassium 3.6 4.1 (3.5-5.1) mmol/L Chloride 107 110 H (98-107) mmol/L Carbon Dioxide 26.4 24.0 (21.0-32.0) mmol/L BUN 34.0 H 25.0 H (7.0-18.0) mg/dL Creatinine 2.24 H 1.50 H (0.55-1.02) mg/dL Glucose 123 H 110 H (74-106) mg/dL Calcium 8.4 L 8.4 L (8.5-10.1) mg/dL AST 15 14 L (15-37) U/L ALT 17 18 (14-59) U/L Alkaline Phosphatase 78 85 (46-116) U/L Total Protein 6.0 L 6.2 L (6.4-8.2) g/dL Albumin 2.4 L 2.4 L (3.4-5.0) g/dL Intake and Output 02/12/24 02/13/24 02/13/24 23:59 07:59 15:59 Intake Total 1300 / 2300 1000 / 2300 500 / 500 Output Total 1200 / 1200 500 / 500 Balance 1300 / 1100 -200 / 1100 0 / 0 Intake: Oral 500 / 500 IV 1300 / 2300 1000 / 2300 0.9 % Sodium Chloride 1,000 ml 1000 / 2000 1000 / 2000 @ 125 mls/hr IV .Q8H ZAYDA Rx#: [id number] Azithromycin 500 mg In 0.9 % 250 / 250 Sodium Chloride 250 ml @ 250 mls/hr IV ONCE ONE Rx#:[id number] Ceftriaxone 1,000 mg In 0.9 % 50 / 50 Sodium Chloride 50 ml @ 100 mls /hr IV ONCE ONE Rx#:[id number] Output: Urine 1200 / 1200 500 / 500 Other: # Unmeasured Voids 1 Weight 112.7 kg EKG Interpretation EKG: sinus rhythm (with TWI in anterolateral leads noted in prior EKG also) Assessment and Plan Assessment and Plan (1) Acute hypotension: (2) Left ventricular hypertrophy: (3) Pneumonia: (4) Acute renal failure: Plan - Troponin leak: This appears not to be a plaque rupture related event as patient is asymptomatic and could be related to poor trop clearance from the IAM as well as concurrent hypotension causing some myocardial damage. Will continue to observe and patient was recommended a prior exercise EKG stress test with perfusion study to evaluate preexcitation with faster HR as wel as to rule out CAD. Would advice this when kidney function is back to normal and patient is recovered. - Possible viral PNA - HTN: Observe for now - PAD: Ct treatment as per Dr Webster.
[2024-02-13] MEDS: CEFTRIAXONE 1,000 MG in 0.9 % SODIUM CHLORIDE 50 ML 100 MG IV (18:01)
[2024-02-13] MEDS: AZITHROMYCIN 500 MG in 0.9 % SODIUM CHLORIDE 250 ML 250 MG IV (18:29)
[2024-02-13 18:50] LABS: A. calcoaceticus-baumannii Cpx NOT DETECTED (NOT DETECTE); Bacteroides fragilis NOT DETECTED (NOT DETECTE); Candida albicans NOT DETECTED (NOT DETECTE); Candida auris NOT DETECTED (NOT DETECTE); Candida glabrata NOT DETECTED (NOT DETECTE); Candida krusei NOT DETECTED (NOT DETECTE); Candida parapsilosis NOT DETECTED (NOT DETECTE); Candida tropicalis NOT DETECTED (NOT DETECTE); Cryptococcus neoformans/gattii NOT DETECTED (NOT DETECTE); Enterobacter cloacae complex NOT DETECTED (NOT DETECTE); Enterobacterales NOT DETECTED (NOT DETECTE); Enterococcus faecalis NOT DETECTED (NOT DETECTE); Enterococcus faecium NOT DETECTED (NOT DETECTE); Haemophilus influenzae NOT DETECTED (NOT DETECTE); Klebsiella aerogenes NOT DETECTED (NOT DETECTE); Klebsiella pneumoniae group NOT DETECTED (NOT DETECTE); Listeria monocytogenes NOT DETECTED (NOT DETECTE); Neisseria meningitidis NOT DETECTED (NOT DETECTE); Proteus spp. NOT DETECTED (NOT DETECTE); Pseudomonas aeruginosa NOT DETECTED (NOT DETECTE); Salmonella spp. NOT DETECTED (NOT DETECTE); Serratia marcescens NOT DETECTED (NOT DETECTE); Staphylococcus epidermidis NOT DETECTED (NOT DETECTE); Staphylococcus lugdunensis NOT DETECTED (NOT DETECTE); Staphylococcus spp. NOT DETECTED (NOT DETECTE); Stenotrophomonas maltophilia NOT DETECTED (NOT DETECTE); Streptococcus agalactiae NOT DETECTED (NOT DETECTE); Streptococcus pneumoniae NOT DETECTED (NOT DETECTE); Streptococcus pyogenes NOT DETECTED (NOT DETECTE); Streptococcus spp. NOT DETECTED (NOT DETECTE)
[2024-02-13 20:34] LABS: Source BLOOD
[2024-02-13] MEDS: AMITRIPTYLINE HCL 50 MG TABLET 75 MG PO (21:56)
[2024-02-14] VITALS (7 sets, daily range): BP systolic 113–117; BP diastolic 70–75; PULSE 71–87; TEMP 36.7–36.8; O2SAT 94–96
[2024-02-14] MEDS: 0.9 % SODIUM CHLORIDE 1,000 ML 125 ML IV (02:10)
[2024-02-14 06:28] LABS: Basophils Absolute Auto 0.1 10^3/uL (0.0-0.1); Eosinophils Percent Auto 0.2 % (0.9-7.0); Hematocrit 31.2 % (36.0-48.0); Hemoglobin 9.8 g/dL (12.0-16.0); Immature Granulocytes Abs Auto 0.02 10^3/uL (0.00-0.03); Immature Granulocytes Pct Auto 0.4 % (0.0-0.5); Lymphocytes Absolute Auto 1.1 10^3/uL (1.2-3.8); Lymphocytes Percent Auto 22.7 % (20.5-60.0); Mean Corpuscular HGB Conc 31.4 g/dL (29.9-35.2); Mean Corpuscular Hemoglobin 28.7 pg (26.7-34.0); Mean Corpuscular Volume 91.5 fL (81.0-99.0); Monocytes Absolute Auto 0.3 10^3/uL (0.3-0.8); Monocytes Percent Auto 7.1 % (1.7-12.0); Neutrophils Absolute Auto 3.3 10^3/uL (1.4-6.5); Neutrophils Percent Auto 68.6 % (43.0-75.0); Platelet Count 190 10^3/uL (150-450); Red Blood Count 3.41 10^6/uL (4.20-5.40); Red Cell Distribution Width 14.7 % (11.0-15.0); White Blood Count 4.8 10^3/uL (4.0-11.0)
[2024-02-14 06:48] LABS: Anion Gap 11.5; Calcium 8.4 mg/dL (8.5-10.1); Chloride 111 mmol/L (98-107); Estimated GFR (African America >60 (>=60 mL/min/1.73m^2); Estimated GFR (Non-African Ame 55 (>=60 mL/min/1.73m^2); Glucose 103 mg/dL (74-106); Potassium 4.5 mmol/L (3.5-5.1); Sodium 143 mmol/L (136-145); Troponin I High Sensitivity 46.7 pg/mL (4.0-51.3)
--- NOTE | 2024-02-14 08:32 | CM.NOTE ---
Rounds made with Dr. Mendez, pt will discharge to home on P.O antibiotics. Pt will f/u with PCP and Cardiology. Discussed with pt about Cardiology recommending stress test as outpatient.
[2024-02-14] MEDS: CHOLECALCIFEROL (VITAMIN D3) 25 MCG/1,000 UNITS TABLET 50 MCG PO (09:07)
[2024-02-14] MEDS: ATORVASTATIN CALCIUM 40 MG TABLET PO (09:07)
[2024-02-14] MEDS: ASPIRIN 81 MG TABLET.DR PO (09:08)
[2024-02-14] MEDS: OLANZapine 5 MG TABLET PO (09:08)
[2024-02-14] MEDS: BUPROPION HCL 150 MG XL TABLET 24H PO (09:08)
[2024-02-14] MEDS: CLOPIDOGREL BISULFATE 75 MG TABLET PO (09:08)
[2024-02-14] MEDS: OMEPRAZOLE 40 MG CAPSULE.DR PO (09:08)
--- NOTE | 2024-02-14 09:18 | P.DS_ITS ---
DS: Providers Provider Date of admission: 02/12/24 21:48 Primary care physician: JOSETTE MANDEL Consults: 02/13/24 06:19 Occupational Therapy Eval and Treat Routine Reason for consultation: Only if needed for Rehab Has provider been notified: No Physical Therapy Eval and Treat Routine Reason for consultation: Eval and Treat Has provider been notified: No 02/13/24 09:21 Consult to Cardiology Routine Reason for consultation: elevated trop DS: Diagnosis Discharge Diagnosis (1) Acute hypotension: (2) Left ventricular hypertrophy: (3) Pneumonia: (4) Acute renal failure: Plan Uncontrolled hypertension, acute renal failure (baseline creatinine 0.7, admission creatinine of 2.24 which is 320.0% above baseline), abnormal EKG with inferior lateral T wave depression, elevated high-sensitivity troponin, x-ray with consistent with right lower lobe pneumonia Acute renal failure-improving at the time of discharge Elevated high-sensitivity troponin, improving at the time of discharge Severe hypotension documented 60/48-much improved Right lower lobe pneumonia-improving Iron deficiency anemia-monitor daily Depression-continue with home medications History of coronary artery disease-continue with home medications Generalized anxiety disorder-continue with home medications GERD-continue with home medications Admission findings: Patient with acute renal failure with 320% above baseline, history of coronary artery disease so unable to be aggressive with fluid resuscitation, medically necessary treatment will span 2 midnights. Inpatient status. ? DS: Summary Hospital Course Hospital Course: Patient admitted with Uncontrolled hypertension, acute renal failure (baseline creatinine 0.7, admission creatinine of 2.24 which is 320.0% above baseline), abnormal EKG with inferior lateral T wave depression, elevated high-sensitivity troponin, x-ray with consistent with right lower lobe pneumonia. Consult to cardiology agree with troponin leak secondary to the stress of the pneumonia and acute uncontrolled hypertension. Medications were adjusted, she was treated for the pneumonia, today she feels much improved with less shortness of breath, no chest pain, at this point if she ambulates in the hallway without hypoxia she will be discharged to home in improving condition. Medications see list. Follow-up with cardiology within the next week. Time Spent with Patient Time attestation: Total time spent providing and/or coordinating discharge services: Exam Constitutional Vital Signs, click to edit/add: Last Vital Signs Temp 98.3 F 02/14/24 07:48 Pulse 80 02/14/24 08:00 Resp 16 02/14/24 07:48 BP 117/70 02/14/24 07:48 Pulse Ox 96 02/14/24 07:48 O2 Del Method Room Air 02/14/24 07:48 Documenting provider has reviewed patient's vital signs: yes Common normals: apparent distress (Very fatigued) Chest Common normals: inspection of chest normal and palpation of chest normal Respiratory Common normals: normal respiratory effort and no retractions Auscultation: rhonchi; no egophony Cardio Common normals: regular rate and regular rhythm GI Common normals: Normal to inspection, nondistended, normoactive bowel sounds present Neuro Carol Coma Scale: document GCS findings Common normals: oriented x3 and CN's II-XII intact bilaterally DS: Data Data Completed and Pending Labs on day of discharge: Labs from last 24 hours 12/11/24 12/09/24 05:51 18:21 WBC 4.8 RBC 3.41 L Hgb 9.8 L Hct 31.2 L MCV 91.5 MCH 28.7 MCHC 31.4 RDW 14.7 Plt Count 190 MPV 10.0 Neut % (Auto) 68.6 Lymph % (Auto) 22.7 [place] % (Auto) 7.1 Eos % (Auto) 0.2 L Baso % (Auto) 1.0 Neut # (Auto) 3.3 Lymph # (Auto) 1.1 L [place] # (Auto) 0.3 Eos # (Auto) 0.0 Baso # (Auto) 0.1 Abs Immat Gran (auto) 0.02 Imm/Tot Granulo (auto) 0.4 Sodium 143 Potassium 4.5 Chloride 111 H Carbon Dioxide 25.0 Anion Gap 11.5 BUN 14.0 Creatinine 1.08 H Est GFR ( Amer) >60 Est GFR (Non-Af Amer) 55 L BUN/Creatinine Ratio 13.0 Glucose 103 Calcium 8.4 L Troponin I High Sens 46.7 Specimen Source Blood A.calcoaceticus-baumannii cmplx PCR Not detected Bacteroides fragilis Not detected Giovana albicans (PCR) Not detected Giovana auris (PCR) Not detected C. glabrata (PCR) Not detected C. krusei (PCR) Not detected C. parapsilosis (PCR) Not detected C. tropicalis (PCR) Not detected C. neoform/gattii (PCR) Not detected Enterobacterales (PCR) Not detected E. cloacae complex PCR Not detected Enterococc faecalis PCR Not detected Enterococc faecium PCR Not detected E. coli (PCR) Not detected H. influenzae (PCR) Not detected Klebsiella aerogenes (PCR) Not detected Klebsiella oxytoca PCR Not detected K. pneumoniae group (PCR) Not detected List. monocytogenes PCR Not detected N. meningitidis (PCR) Not detected Proteus spp. (copies/mL) Not detected Salmonella spp. (PCR) Not detected Serratia marcescens PCR Not detected Staphylococcus sp PCR Not detected Staph aureus (PCR) Not detected mecA/C & MREJ Resist Gene Not applicable mecA/C-Methicil Resis Gene Not applicable mcr-1 Colistin Res Gene PCR Not applicable Staph epidermidis (PCR) Not detected Staph lugdunensis (TEM-PCR) Not detected S. maltophilia (PCR) Not detected Streptococcus sp PCR Not detected Strep agalactiae (PCR) Not detected Strep pneumoniae (PCR) Not detected S. pyogenes (PCR) Not detected P. aeruginosa (PCR) Not detected Opal/B-Vanco Res Genes Not applicable blaIMP Car res Gene PCR Not applicable KPC (blaKPC) Detect PCR Not applicable NDM (blaNDM) Detect PCR Not applicable OXA-48 Carbapenem Resis Gene (PCR) Not applicable blaVIM Car Res Gene PCR Not applicable CTX-M ESBL (PCR) Not applicable Preliminary micro results at discharge 02/12/24 18:21 Blood Culture Result 2 - Preliminary Blood Discharge Plan Discharge Disposition: Home, Self-Care Condition: Good Discharge Medications: New cefdinir 300 mg capsule 600 mg PO DAILY Qty: 20 0RF Continued aspirin 81 mg capsule 81 mg PO DAILY Qty: 30 0RF clopidogrel [Plavix] 75 mg tablet 75 mg PO DAILY Qty: 30 0RF atorvastatin 40 mg tablet 40 mg PO DAILY Qty: 30 0RF gabapentin 300 mg capsule 600 mg PO TID hydroxyzine pamoate 50 mg capsule 25 mg PO Q8H PRN (Reason: anxiety) olmesartan-hydrochlorothiazide 20-12.5 mg tablet 1 tab PO DAILY omeprazole 40 mg capsule,delayed release(DR/EC) 40 mg PO BID albuterol sulfate 90 mcg/actuation HFA aerosol inhaler 1 puff INHALATION Q4H PRN (Reason: shortness of breath or wheezing) amitriptyline 50 mg tablet 75 mg PO .QHS bupropion HCl 150 mg tablet extended release 24 hr 150 mg PO DAILY cholecalciferol (vitamin D3) 50 mcg (2,000 unit) tablet 50 mcg PO DAILY lorazepam 1 mg tablet 1 mg PO TID olanzapine 5 mg tablet 5 mg PO BID Activity: resume usual activities as tolerated Diet: advance to your usual diet Print Language: Kyrgyz Patient Instructions: Hypotension (DC), Pneumonia (DC) Forms: Portal Instructions Follow Up Appointments: @ 10am with Josette Mandel NP [phone] 2024 @ 2:20pm with [place] [facility] [phone]
--- NOTE | 2024-02-15 15:16 | CM.DCFOLLOWU ---
Person spoke with: patient How are you feeling? well How is your pain?none Did you understand your discharge instructions?yes Do you have any questions about your discharge instructions? no Were you given any prescriptions at discharge? 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 no questions, follow up reviewed Is there anything else that you would like to discuss?no Questions/Comments/Concerns/Other:none
== END 2024-02-14 10:20 | disposition home or self-care (01) | DRG 207 ==
LOC: ER 20:44 → MS 02-13 05:58
PROVIDERS: Physician Assistant; Registered Nurse; Admitting Provider Family Medicine; Emergency Provider Emergency Medicine; PCP Nurse Practitioner Family; Visit Provider Family Medicine
DX: I95.9 Hypotension, unspecified (principal); J18.9 Pneumonia, unspecified organism; N17.9 Acute kidney failure, unspecified; D50.9 Iron deficiency anemia, unspecified; F32.A Depression, unspecified; F41.1 Generalized anxiety disorder; I10 Essential (primary) hypertension; I25.10 Atherosclerotic heart disease of native coronary artery without angina pectoris; I73.9 Peripheral vascular disease, unspecified; K21.9 Gastro-esophageal reflux disease without esophagitis; R79.89 Other specified abnormal findings of blood chemistry; R94.31 Abnormal electrocardiogram [ECG] [EKG]; Z20.822 Contact with and (suspected) exposure to COVID-19; Z79.02 Long term (current) use of antithrombotics/antiplatelets; Z79.82 Long term (current) use of aspirin; Z79.899 Other long term (current) drug therapy; Z88.0 Allergy status to penicillin; Z88.1 Allergy status to other antibiotic agents
CPT/HCPCS: 36415; 71045; 80048; 80053; 80061; 81001; 82800; 83036; 83605; 83735; 83880; 84443; 84484; 85025; 87040; 87070; 87086; 87150; 87804; 87811; 93005; 93308; 94667; 94761; 96361; 96365; 96367; 97162; 99285; J0456; J0696; J1650

== ENCOUNTER 2024-04-29 06:48 | Outpatient (OUT) | payer MEDICAID, SELFPAY ==
--- NOTE | 2024-04-29 | PCN_ITS ---
CARDIAC STRESS TEST Requesting Physician: Reed Mckeon M.D. Procedure Date: 04/29/2024 PERFORMING PROVIDER: Reed Mckeon M.D. INDICATION: Vfudj-Pzitopovt-[id number], shortness of breath, chest pain. STRESS TEST PROTOCOL: Jack protocol, treadmill stress test. Resting heart rate: 87 beats per minute. Max heart rate: 115 beats per minute. Resting blood pressure: 156/98 Maximum blood pressure: 170/98 CONCLUSION: 1. This is a submaximal stress test, which is non-diagnostic. 2. Patient refused Lexiscan infusion. She understands the risks of undiagnosed coronary artery disease and is still unwilling to have it performed. 3. Clinical correlation is advised. YOLANDA
--- NOTE | 2024-04-29 07:15 | NM_ITS ---
Patient Name: SHAHLA THAPA MR#: [id number] : 1980 Exam Date: 04/29/2024 Ordering Doctor: BENITO PRADO M.D. RADIOLOGY REPORT PROCEDURE: NM MARIYA PERF SPECT REST OR STR COMPARISON: None. INDICATIONS: DYSPNEA, PRE-EXCITATION SYNDROME TECHNIQUE: Exam Description: Rest Only one day protocol non-gated SPECT Rest Imagin.3 mCi Tc-99m Cardiolite IV on 04/29/2024 Stress Imaging mCi Tc-99m Cardiolite IV on Exercise Protocol: Rest only Heart Rate (bpm): Rest: Max: PMHR: Blood Pressure: Rest: Max: Symptoms: Rest ECG findings: For more details, please see separate cardiac stress test report. FINDINGS: QUALITY OF STUDY: PERFUSION DEFECT: LOCATION: Basal septal SIZE: Moderate SEVERITY: Moderate LVEF: Calculated EF % - not applicable SUMMARY: Myocardial perfusion imaging study is abnormal CONCLUSION: Rest only, one-day protocol non gated SPECT imaging shows a basal septal perfusion defect seen in short axis views Dictated by: Marivel Fan M.D. on 05/01/2024 at 13:23 Approved by: Marivel Fan M.D. on 05/01/2024 at 13:31
--- NOTE | 2024-04-29 11:16 | PC.NURSE ---
Nursing Note Cardiac Stress Test Reviewed: Medication, allergies and patient history reviewed. Stress Test: [ ] Patient tolerated stress test well. [ x] Patient unable to tolerate walking on treadmill. Switched to Lexiscan stress test. [ ] No chest pain noted per patient [ ] Chest pain that resolved prior to leaving stress lab. [ ] No dyspnea noted. [ x] Dyspnea that resolved prior to leaving stress lab. [x ] Patient left stress lab asymptomatic and hemodynamically stable. [ ] Patient taken to the Emergency Room due to non-resolving symptoms following stress test. [ ] Patient achieved target heart rate. [x ] Patient unable to achieve target heart rate. [ ] Aminophylline administered as reversal agent to Lexiscan (Regadenoson). [ ] Nitro administered. Nursing Comments: Patient to have stress test for WPW. Patient was explained the procedure, target heart rate, and need to walking on treadmill for a diagnostic exam. Patient verbalized understanding and agreed to exam. Patient was unable to tolerated treadmill, stated her legs were burning, and complained of shortness of breath. Patient refused to keep eyes open on the treadmill despite education on importance and safety and the test was terminated per her request. After speaking with Dr. Mckeon we were going to perform a lexiscan test but the patient refused that as well. This Rn discussed at length the exam and what to expect but the patient became tearful and stated she thought it was going to kill her and refused the exam. This Rn did inform the provider of patients refusal.
== END 2024-04-29 06:49 | disposition home or self-care (01) ==
LOC: NM 06:48
PROVIDERS: PCP Nurse Practitioner Family; Visit Provider Internal Medicine Cardiovascular Disease
DX: I45.6 Pre-excitation syndrome (principal); R06.09 Other forms of dyspnea
CPT/HCPCS: 78451; 93017; A9500

== ENCOUNTER 2024-05-21 13:25 | Inpatient (IN) | payer MEDICAID, SELFPAY ==
[2024-05-21] VITALS (31 sets, daily range): BP systolic 93–112; BP diastolic 53–75; PULSE 81–101; TEMP 36.4–37.1; O2SAT 96–100; BMI 39.1; BMI 38.8
--- NOTE | 2024-05-21 13:43 | ECG_ITS ---
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
[2024-05-21] MEDS: ONDANSETRON PF 4 MG/2 ML VIAL IV (14:05)
[2024-05-21] MEDS: FAMOTIDINE/PF 20 MG/2 ML VIAL IV (14:05)
[2024-05-21] MEDS: KETOROLAC TROMETHAMINE 30 MG/ML VIAL 15 MG IVP (14:05)
[2024-05-21 14:23] LABS: Basophils Absolute Auto 0.1 10^3/uL (0.0-0.1); Basophils Percent Auto 0.6 % (0.2-2.0); Eosinophils Absolute Auto 0.1 10^3/uL (0.0-0.7); Eosinophils Percent Auto 1.5 % (0.9-7.0); Hematocrit 39.2 % (36.0-48.0); Hemoglobin 13.2 g/dL (12.0-16.0); Immature Granulocytes Abs Auto 0.02 10^3/uL (0.00-0.03); Immature Granulocytes Pct Auto 0.3 % (0.0-0.5); Lymphocytes Absolute Auto 1.5 10^3/uL (1.2-3.8); Lymphocytes Percent Auto 18.2 % (20.5-60.0); Mean Corpuscular HGB Conc 33.7 g/dL (29.9-35.2); Mean Corpuscular Hemoglobin 29.9 pg (26.7-34.0); Mean Corpuscular Volume 88.7 fL (81.0-99.0); Mean Platelet Volume 10.3 fL (9.5-13.5); Monocytes Absolute Auto 0.7 10^3/uL (0.3-0.8); Monocytes Percent Auto 9.2 % (1.7-12.0); Neutrophils Absolute Auto 5.6 10^3/uL (1.4-6.5); Neutrophils Percent Auto 70.2 % (43.0-75.0); Platelet Count 278 10^3/uL (150-450); Red Blood Count 4.42 10^6/uL (4.20-5.40); Red Cell Distribution Width 14.3 % (11.0-15.0)
[2024-05-21 14:24] LABS: Bilirubin Urine NEGATIVE (NEGATIVE); Blood Urine NEGATIVE (NEGATIVE); Clarity Urine SL CLOUDY (CLEAR); Color Urine YELLOW (YELLOW); Glucose Urine UA NEGATIVE (NEGATIVE); Ketones Urine TRACE mg/dL (NEGATIVE); Leukocyte Esterase Urine SMALL (NEGATIVE); Nitrite Urine NEGATIVE (NEGATIVE); Protein Urine TRACE mg/dL (NEG/TRACE); Specific Gravity Urine 1.015 (1.005-1.025); pH Urine 5.5 (5.0-9.0)
[2024-05-21 14:25] LABS: Urine Microscopic Indicated YES
[2024-05-21 14:32] LABS: Bacteria Urine TRACE #/HPF (NONE SEEN); Cast Seen? NONE SEEN #/LPF (NONE SEEN); Crystals Seen? None Seen #/HPF (None Seen); Mucus Urine NONE SEEN (NONE SEEN); RBC Urine NONE SEEN #/HPF (0-2); Squamous Epithelial Cell Urine MANY #/LPF (NONE/RARE); Urine Culture Indicated NO
[2024-05-21 14:42] LABS: HCG Qualitative POSITIVE (NEGATIVE); Internal Control Within Normal Limits
[2024-05-21 14:45] LABS: Alanine Aminotransferase 43 U/L (14-59); Albumin Globulin Ratio 0.9; Albumin Level 3.5 g/dL (3.4-5.0); Alkaline Phosphatase 97 U/L (46-116); Anion Gap 16.4; Aspartate Amino Transferase 39 U/L (15-37); BUN Creatinine Ratio 12.9; Carbon Dioxide 25.1 mmol/L (21.0-32.0); Chloride 99 mmol/L (98-107); Estimated GFR (African America 29 (>=60 mL/min/1.73m^2); Estimated GFR (Non-African Ame 24 (>=60 mL/min/1.73m^2); Globulin 3.9 g/dL; Glucose 118 mg/dL (74-106); Potassium 3.5 mmol/L (3.5-5.1); Sodium 137 mmol/L (136-145); Total Protein 7.4 g/dL (6.4-8.2)
[2024-05-21 14:56] LABS: Troponin I High Sensitivity 140.6 pg/mL (4.0-51.3)
--- NOTE | 2024-05-21 15:04 | ED_ITS ---
HPI - Abdominal Pain General Chief Complaint: Abdominal Pain Stated Complaint: VOMITTING ABDOMINAL PAIN Time Seen by Provider: 05/21/24 13:35 Source: patient Mode of arrival: walk-in Limitations: no limitations History of Present Illness HPI narrative: The patient is coming to the ER after she started having right upper quadrant pain almost 3 days ago, the patient mentioned that the pain started after eating at [employer] she already have a history of cholecystectomy and today she did eat some [place] and she started having the pain again, this pain has been associated with nausea and vomiting The patient also has been constipated since this happened 3 days ago. She mentioned that she is not able to keep anything liquid [place] as she is always throwing up since 3 days ago. Patient mentioned having some chills and no fever . Related Data Home Medications ?Medication ?Instructions ?Recorded ?Confirmed gabapentin 300 mg capsule 600 mg PO TID 05/09/23 02/12/24 hydroxyzine pamoate 50 mg capsule 25 mg PO Q8H PRN anxiety 05/09/23 02/12/24 olmesartan 20 1 tab PO DAILY 05/09/23 02/12/24 mg-hydrochlorothiazide 12.5 mg tablet omeprazole 40 mg capsule,delayed 40 mg PO BID 05/09/23 02/12/24 release albuterol sulfate 90 mcg/actuation 1 puff inhalation Q4H PRN 02/12/24 02/12/24 aerosol inhaler shortness of breath or wheezing amitriptyline 50 mg tablet 75 mg PO .QHS 02/12/24 02/12/24 bupropion HCl 150 mg 24 hr tablet, 150 mg PO DAILY 02/12/24 02/12/24 extended release cholecalciferol (vitamin D3) 50 50 mcg PO DAILY 02/12/24 02/12/24 mcg (2,000 unit) tablet lorazepam 1 mg tablet 1 mg PO TID 02/12/24 02/12/24 olanzapine 5 mg tablet 5 mg PO BID 02/12/24 02/12/24 Previous Rx's ?Medication ?Instructions ?Recorded aspirin 81 mg capsule 81 mg PO DAILY #30 caps 05/08/23 atorvastatin 40 mg tablet 40 mg PO DAILY #30 tabs 05/08/23 clopidogrel 75 mg tablet (Plavix) 75 mg PO DAILY #30 tabs 05/08/23 cefdinir 300 mg capsule 600 mg (2 x 300 mg) PO DAILY #20 02/14/24 caps Allergies Allergy/AdvReac Type Severity Reaction Status Date / Time ciprofloxacin (From Cipro) Allergy Severe Swelling Verified 05/21/24 13:29 of Lip/Tongue/Throat metronidazole (From Flagyl) Allergy Severe Swelling Verified 05/21/24 13:29 of Lip/Tongue/Throat Penicillins Allergy Severe Swelling Verified 05/21/24 13:29 of Lip/Tongue/Throat Review of Systems ROS Status of ROS 10 or more systems reviewed and unremark able except as noted in history and below [facility] Medical History Schizo affective schizophrenia ?F25.9 - Schizoaffective disorder, unspecified (ICD-10) delivery delivered ?O82 - Encounter for delivery without indication (ICD-10) Cholecystectomy planned Bilateral carpal tunnel syndrome ?G56.03 - Carpal tunnel syndrome, bilateral upper limbs (ICD-10) Left adrenal mass ?E27.8 - Other specified disorders of adrenal gland (ICD-10) Raynauds disease ?I73.00 - Raynaud's syndrome without gangrene (ICD-10) Nicotine dependence ?F17.200 - Nicotine dependence, unspecified, uncomplicated (ICD-10) GERD without esophagitis ?K21.9 - Gastro-esophageal reflux disease without esophagitis (ICD-10) Irritable bowel syndrome (IBS) ?K58.9 - Irritable bowel syndrome, unspecified (ICD-10) Left ventricular hypertrophy ?I51.7 - Cardiomegaly (ICD-10) Asthma ?J45.909 - Unspecified asthma, uncomplicated (ICD-10) Vitamin D deficiency ?E55.9 - Vitamin D deficiency, unspecified (ICD-10) SHARI (obstructive sleep apnea) ?G47.33 - Obstructive sleep apnea (adult) (pediatric) (ICD-10) Anxiety disorder with panic attacks ?F41.9 - Anxiety disorder, unspecified (ICD-10) Depression ?F32.A - Depression, unspecified (ICD-10) Hypertension ?I10 - Essential (primary) hypertension (ICD-10) Surgical History H/O removal of cyst ?Z98.890 - Other specified postprocedural states (ICD-10) H/O cardiac catheterization ?Z98.890 - Other specified postprocedural states (ICD-10) H/O tubal ligation ?Z98.51 - Tubal ligation status (ICD-10) Family History Mother Family history of stroke Family history of cancer Social History Highest level of school completed/degree received: high school graduate Little interest or pleasure in doing things: not at all Feeling down, depressed, or hopeless: not at all Exam Narrative Exam Narrative: Nurses notes and vital signs reviewed and patient is not hypoxic. General: Well-appearing and in no apparent distress. Skin: Warm, dry, no pallor noted. No rash. Head: Normocephalic, atraumatic. Neck: Supple, non-tender. Cardiovascular: Regular Rate and Rhythm without murmur, gallop or rub. Respiratory: No accessory muscle use or respiratory distress. Lungs are clear to auscultation, no wheezing, rales or rhonchi Chest Wall: no tenderness Back: No midline thoracic or lumbar vertebral tenderness. No CVA tenderness Musculoskeletal: normal ROM, no calf or popliteal tenderness, no lower extremity edema/swelling GI: Abdomen is soft, obese and right upper quadrant tenderness noted on examination. Neurological: A&O x4. No cranial nerve dysfunction observed. Psychiatric: Cooperative and interactive. Normal mood and affect. Constitutional Vital Signs, click to edit/add: Last Vital Signs Temp 97.6 F 05/21/24 13:30 Pulse 96 H 05/21/24 13:30 Resp 20 05/21/24 13:30 BP 98/53 05/21/24 13:30 Pulse Ox 99 05/21/24 14:21 O2 Del Method Room Air 05/21/24 14:21 Course Vital Signs Vital signs: Vital Signs Temperature 97.6 F 05/21/24 13:30 Pulse Rate 96 H 05/21/24 13:30 Respiratory Rate 20 05/21/24 13:30 Blood Pressure 98/53 05/21/24 13:30 Pulse Oximetry 98 05/21/24 13:30 Oxygen Delivery Method Room Air 05/21/24 13:30 Temperature 97.6 F 05/21/24 13:30 Pulse Rate 96 H 05/21/24 13:30 Respiratory Rate 20 05/21/24 13:30 Blood Pressure 98/53 05/21/24 13:30 Pulse Oximetry 99 05/21/24 14:21 Oxygen Delivery Method Room Air 05/21/24 14:21 MDM - Abdominal Pain MDM Narrative Medical decision making narrative: The patient EKG in the ER showing some significant ST changes but seen in older EKGs multiple time with some improvement in this current EKG. CBC showed no leukocytosis but the chemistry showing some acute kidney injury Creatinine is 2.2 and the troponin was at 140 Repeated troponin was 136 CT abdomen pelvis showed no acute pathology It was noted that the patient test came positive although with her history of tubal ligation and the fact that it is only 7 in the quantitative could be a false positive this will need to be repeated in couple days The patient case was discussed with in cardiology service and he agreed on admitting the patient for further hydration and monitoring the troponin The patient case was discussed with and he agreed on admitting the patient for further evaluation Lab Data Labs: Lab Results 05/21/24 05/21/24 05/21/24 Range/Units 13:56 14:00 15:02 WBC 8.0 (4.0-11.0) 10^3/uL RBC 4.42 (4.20-5.40) 10^6/uL Hgb 13.2 (12.0-16.0) g/dL Hct 39.2 (36.0-48.0) % MCV 88.7 (81.0-99.0) fL MCH 29.9 (26.7-34.0) pg MCHC 33.7 (29.9-35.2) g/dL RDW 14.3 (11.0-15.0) % Plt Count 278 (150-450) 10^3/uL MPV 10.3 (9.5-13.5) fL Neut % (Auto) 70.2 (43.0-75.0) % Lymph % (Auto) 18.2 L (20.5-60.0) % [place] % (Auto) 9.2 (1.7-12.0) % Eos % (Auto) 1.5 (0.9-7.0) % Baso % (Auto) 0.6 (0.2-2.0) % Neut # (Auto) 5.6 (1.4-6.5) 10^3/uL Lymph # (Auto) 1.5 (1.2-3.8) 10^3/uL [place] # (Auto) 0.7 (0.3-0.8) 10^3/uL Eos # (Auto) 0.1 (0.0-0.7) 10^3/uL Baso # (Auto) 0.1 (0.0-0.1) 10^3/uL Abs Immat Gran (auto) 0.02 (0.00-0.03) 10^3/uL Imm/Tot Granulo (auto) 0.3 (0.0-0.5) % Sodium 137 (136-145) mmol/L Potassium 3.5 (3.5-5.1) mmol/L Chloride 99 (98-107) mmol/L Carbon Dioxide 25.1 (21.0-32.0) mmol/L Anion Gap 16.4 BUN 29.0 H (7.0-18.0) mg/dL Creatinine 2.24 H (0.55-1.02) mg/dL Est GFR ( Amer) 29 L (>=60 mL/min/1.73m^2) Est GFR (Non-Af Amer) 24 L (>=60 mL/min/1.73m^2) BUN/Creatinine Ratio 12.9 Glucose 118 H (74-106) mg/dL Calcium 9.0 (8.5-10.1) mg/dL Total Bilirubin 1.0 (0.2-1.0) mg/dL AST 39 H (15-37) U/L ALT 43 (14-59) U/L Alkaline Phosphatase 97 (46-116) U/L Troponin I High Sens 140.6 H* 136.1 H* (4.0-51.3) pg/mL Total Protein 7.4 (6.4-8.2) g/dL Albumin 3.5 (3.4-5.0) g/dL Globulin 3.9 g/dL Albumin/Globulin Ratio 0.9 Lipase 62.0 (16.0-77.0) U/L Serum HCG, Qual Positive A (NEGATIVE) HCG, Quant 7 mIU/mL Urine Color Yellow (YELLOW) Urine Clarity Sl cloudy (CLEAR) Urine pH 5.5 (5.0-9.0) Ur Specific [place] 1.015 (1.005-1.025) Urine Protein Trace (NEG/TRACE) mg/dL Urine Glucose (UA) Negative (NEGATIVE) mg/dL Urine Ketones Trace A (NEGATIVE) mg/dL Urine Occult Blood Negative (NEGATIVE) Urine Nitrite Negative (NEGATIVE) Urine Bilirubin Negative (NEGATIVE) Urine Urobilinogen 1.0 (0.2-1.0) EU/dL Ur Leukocyte Esterase Small A (NEGATIVE) Urine RBC None seen (0-2) #/HPF Urine WBC 2-5 A (NONE SEEN) #/HPF Ur Squamous Epith Cells Many A (NONE/RARE) #/LPF Urine Crystals None seen (None Seen) #/HPF Urine Bacteria Trace A (NONE SEEN) #/HPF Urine Casts None seen (NONE SEEN) #/LPF Urine Mucus None seen (NONE SEEN) Ur Culture Indicated? No Blood Type B Positive Antibody Screen Negative Discharge Plan Discharge Chief Complaint: Abdominal Pain Clinical Impression: IAM (acute kidney injury), Demand ischemia, Elevated troponin, Abdominal pain, Patient Disposition: Admitted as Observation Time of Disposition Decision: 16:38
[2024-05-21] MEDS: 0.9 % SODIUM CHLORIDE 1,000 ML 1000 ML IV (15:18)
[2024-05-21 15:45] LABS: HCG Quantitative 7 mIU/mL
[2024-05-21 15:46] LABS: Troponin I High Sensitivity 136.1 pg/mL (4.0-51.3)
[2024-05-21] MEDS: MORPHINE SULFATE 4 MG/ML VIAL IV (16:00)
[2024-05-21 19:27] LABS: Troponin I High Sensitivity 121.4 pg/mL (4.0-51.3)
[2024-05-21 22:22] LABS: Troponin I High Sensitivity 139.2 pg/mL (4.0-51.3)
[2024-05-22] VITALS (97 sets, daily range): BP systolic 80–115; BP diastolic 32–63; PULSE 81–108; TEMP 36.1–36.8; O2SAT 93–100; BMI 38.8
--- OUTSIDE RECORDS SUMMARY | 2024-05-22 | XMS_ITS | CCD ---
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 Name Role Phone DIPESH MORRIS Unavailable Unavailable TAMARA CALERO Unavailable Unavailable Em ELECTORATE OFFICER-POULTRY HATCHERY MAN, Debo Unavailable Dennis Sarmiento MD Unavailable Belcastro ELECTORATE OFFICER-POULTRY HATCHERY MAN, Marcella Unavailable Tamara Calero Unavailable Dennis Sarmiento MD Unavailable [phone] Belcastro ELECTORATE OFFICER-POULTRY HATCHERY MAN, Marcella Unavailable [phone] BRITTNI, DR SHAH Primary Care Unavailable JAGJIT, DR [...] Consulting Unavailable Dennis Sarmiento MD Unavailable [place]castro ELECTORATE OFFICER-POULTRY HATCHERY MAN, Marcella Unavailable Abdias, DO Tamara Primary Care Provider DO Antolin Abarca Emergency Provider MD Geo Loomis Admit Provider MD Geo Loomis Attending Provider Abdias, DO Tamara Primary Care Provider DO Tevin Antolin Emergency Provider MD Geo Loomis Admit Provider MD Geo Loomis Attending Provider JOHAN STEPHENS Referring Unavailable PROVIDER, UNKNOWN Admitting Unavailable PROVIDER, UNKNOWN Attending Unavailable DENNIS NICHOLE Referring Unavailable PROVIDER, UNKNOWN Admitting Unavailable PROVIDER, UNKNOWN Attending Unavailable PATIENT, SELF Referring Unavailable PROVIDER, UNKNOWN Admitting Unavailable PROVIDER, UNKNOWN Attending Unavailable Chloé SANDERSN-POULTRY HATCHERY MAN, Marcella Unavailable Priyanka Lemon Unavailable Abdias, Tamara Primary Care Provider [phone] MD Vivek Antoine Attending Provider [phone] Abdias, Tamara Primary Care Provider MD Vivek Antoine Attending Provider FARNAZ Mandel Primary Care Provider [phone] Noah [facility] Junie Walker Emergency Provider [phone] Abdias, DO Posada Primary Care Provider MD Vivek Antoine Attending Provider [phone] JUS SHRESTHA Attending Unavailable ABDIAS, TAMARA Hopson Referring Unavailable ABDIAS, TAMARA A Primary Care Unavailable ABDIAS, TAMARA A Referring Unavailable BRANANTHONYCKI, TAMARA A Primary Care Unavailable JUS SHRESTHA Attending Unavailable ABDIAS, TAMARA A Referring Unavailable JOSETTE MANDEL Primary Care Unavailable Abdias, DO Posada Primary Care Provider MD Vivek Antoine Attending Provider DO Abdias Tamara Primary Care Provider MD Vivek Antoine Attending Provider MD Thierno [place] Emergency Provider MD Jean Paul Loomismi Admit Provider MD Geo Loomis Attending Provider DO Abdias [facility] Primary Care Provider [phone] MD Vivek Antoine Attending Provider Abdias JACKSON, Tamara Primary Care Provider Vivek Antoine MD Attending Provider [phone] BENITO PRADO Attending Unavailable BENITO PRADO Attending Unavailable Josette Mandel Primary Care Unavailable Delaney Antoineelrahman Attending Unavailab le Geo Loomis Admitting Unavailable Josette Mandel Primary Care Unavailable Bullimore Junie E Admitting Unavailable Bullimore Junie E Attending Unavailable Abdias Tamara [facility] Unavailable Arash Vivek Admitting Unavailab le Prachi Antoinehman Attending Unavailab le Allergies Allergy Classification Reported Allergen(s) Allergy Type Date of Onset Reaction(s) Facility (20 sources) Ciprofloxacin; Translations: [CIPROFLOXACIN] Drug Allergy 11-02-19 13 Edema [employer] Work Phone: Comment on above: Patient not fully ce rtain of reaction but believes it caused flu-like symptoms (20 sources) metroNIDAZOLE; Translations: [METRONIDAZOLE] Drug Allergy 10-13-19 19 Edema [employer] Other Comment on above: Patient not sure of reaction but states a previous physician informed her she had reacted to it. (20 sources) Penicillins; Translations: [PENICILLINS] Propensity to adverse reactions to drug 10-13-19 19 Edema, Swelling [facility] (20 sources) Penicillin G; Translations: [PENICILLIN G] Drug Allergy 10-13-19 19 swelling [facility] (1 source) Ciprofloxacin Drug Allergy 10-06-19 [facility] (1 source) metroNIDAZOLE Drug Allergy 10-06-19 20 [facility] (1 source) Penicillin Drug Allergy 10-06-19 20 [facility] (12 sources) Quinolones (Antibiotic); Translations: [Quinolones] Propensity to adverse reactions 05-11-19 23 Fatigued [facility] (1 source) ciprofibrate; Translations: [CIPROFIBRATE] Drug Allergy 10-13-19 [facility] (1 source) Ciprofloxacin Drug Allergy 03-31-19 [facility] (1 source) metroNIDAZOLE Drug Allergy 03-31-19 [facility] (1 source) Penicillin Drug Allergy 03-31-19 [facility] Medications Current Medications Medication Drug Class(es) Dates Sig (Normalized) Sig (Original) acetaminophen 325 mg oral tablet (10 sources) Start: 08-04-2021 take 2 tablets by mouth every six hours acetaminophen (TYLENOL) 325 mg tablet Take 2 Tablets by mouth every 6 (six) hours. 30 Tablet 0 08/04/2021 Active Start: 07-31-2021 take 650 mg by mouth every six hours 650 mg, Oral, Every 6 hours, First dose on 07/31/21 at 0230, Until Discontinued, Post-op Start: 07-30-2021 End: 07-31-2021 acetaminophen (TYLENOL) tabl et [id number] 200 actuat albuterol 0.09 mg/actuat metered dose inhaler (20 sources) beta2-Adrenergic Agonist Start: 03-31-2024 Albut meghan Sulfate 90 mcg/actuation HFA aerosol inhaler Active 2 INH INHALATION EVERY 4-6 HOURS as needed for shortness of breath or wheezing 8.5 March 31, 2024 12:00am Start: 04-24-2023 take 2 puff(s) by in halation every four hours as needed for wheezing Albuterol Sulfate 90 mcg/actuation HFA aerosol inhaler Active 2 INH INHALATION Every 4 hours as needed for shortness of breath or wheezing April 24, 2023 12:00am [employer] puffs as needed Inhalation every 6 hrs PRN; Note: Source Status: Taking; Refills: 0; Provider: Abdias Hopson Start: 04-24-2023 take 2 puff(s) by in halation every six hours as needed Albuterol Sulfate Active INHALATION April 24, 2023 1:00am [employer] puffs as needed Inhalation every 6 hrs PRN; Note: Source Status: Taking; Refills: 0; Provider: Abdias Hopson Start: 05-11-2022 End: 04-24-2023 take 1 puff(s) by inhalation every four hours as needed Albuterol Sulfate 90 mcg/actuation HFA aerosol inhaler Discontinued 1 PUFF INHALATION Q4H as needed for Shortness Of Breath May 11, 2022 12:00am April 24, 2023 [...] hrs PRN for 30 days Mar, Active aspirin 81 mg oral tablet (8 sources) Platelet Aggregation Inhibitor, Nonsteroidal Anti-inflammatory Drug Start: 08-21-2023 take 81 mg by mouth once daily Aspirin Active 81 MG PO Daily August 21, 2023 12:00am Start: 07-07-2020 take 1 tablet by claudine th every twenty-four hours Aspirin 81 MG 1 tablet Orally Once a day for 90 days July, Not-Taking Aspirin 81 mg tablet,delayed release (DR/EC) (1 source) Start: 08-21-2023 take 1 tablet by mouth once daily Aspirin 81 mg tablet,delayed release (DR/EC) Active 81 MG PO Daily August 20, 2023 11:00pm atorvastatin 40 mg oral tablet (7 sources) HMG-CoA Reductase Inhibitor Start: 08-21-2023 take 1 tablet by mouth once daily Atorvastatin 40 mg tablet Active 40 MG PO Daily August 20, 2023 11:00pm calcium carbonate 500 mg chewable tablet (1 source) Start: 08-01-2021 calcium carbonate (TUMS) 500 MG tablet CHEW cholecalciferol 0.05 mg oral tablet (14 sources) Vitamin D Start: 09-28-2023 take 1 tablet by mouth once daily Cholecalciferol (Vitamin D3) 50 mcg (2,000 unit) tablet Active 50 MCG PO Daily September 27, 2023 11:00pm Start: 05-15-2022 End: 04-24-2023 take 1 capsule by mouth once daily Cholecalciferol (Vitamin D3) 50 mcg (2,000 unit) capsule Discontinued 50 MCG PO Daily May 15, 2022 12:00am April 24, 2023 7:55am clonazePAM 0.5 mg oral tablet (18 sources) Benzodiazepine Start: 06-23-2021 take 1 tablet by mouth once daily for anxiety clonazePAM (KlonoPIN) 0.5 MG tablet take 1 tablet by mouth once daily if needed for anxiety 0 06/23/2021 Active clopidogrel 75 mg oral tablet (7 sources) [id number] Platelet Inhibitor Start: 08-21-2023 take 1 tablet by mouth once daily Clopidogrel 75 mg tablet Active 75 MG PO Daily August 20, 2023 11:00pm ferrous sulfate 325 mg delayed release oral [...] day for 14 day(s) Dec, Active gabapentin 300 mg oral capsule (20 sources) Anti-epileptic Agent Start: 08-28-2023 take 2 capsules by mouth three times daily Gabapentin 300 mg capsule Active 600 MG PO Three times daily August 27, 2023 11:00pm Start: 08-28-2023 take 600 mg by mouth three times daily Gabapentin Active 600 MG PO Three times daily August 28, 2023 12:00am Start: 04-24-2023 End: 08-28-2023 take 2 capsules by mouth three times daily Gabapentin 400 mg capsule Discontinued 300 MG PO Three times daily April 24, 2023 3:32pm August 28, 2023 11:41am 2 capsules TID Start: 04-24-2023 End: 08-28-2023 take 2 capsules by mouth three times daily Gabapentin Discontinued 300 MG PO Three times daily April 24, 2023 4:32pm August 28, 2023 12:41pm 2 capsules TID Start: 04-24-2023 End: 04-24-2023 Gabapentin Discontinued MG P O April 24, 2023 1:00am April 24, 2023 4:36pm FreeTextSig: Oral; Note: Source Status: Taking; Qty: 90 Capsule; Provider: Abdias Posada ( ) Start: 05-29-2022 End: 04-24-2023 Gabapentin 400 mg capsule Discontinued MG PO April 24, 2023 12:00am April 24, 2023 3:36pm FreeTextSig: Oral; Note: Source Status: Taking; Qty: 90 Capsule; Provider: Abdias Posada ( ) Start: 05-15-2022 End: 05-29-2022 take 1 capsule by mouth three times daily Gabapentin 300 mg Capsule Discontinued 300 MG PO Three times daily May 15, 2022 12:00am May 29, 2022 9:26am Start: 08-02-2021 gabapentin (NE URONTIN) capsule Start: 07-30-2021 End: 07-30-2021 gabapentin (NEURONTIN) capsu le take 1 tablet by claudine th every eight hours Gabapentin 600 MG 1 tablet Orally Three times a day for 30 days Active hydroCHLOROthiazide 12.5 mg / olmesartan medoxomil 20 mg oral tablet (15 sources) Thiazide Diuretic, Angiotensin 2 Receptor Jordi Start: 08-21-2023 take 1 tablet by mouth once daily Olmesartan-Hydrochlorothiazide 20-12.5 mg tablet Active 1 TAB PO Daily August 20, 2023 11:00pm Start: 04-24-2023 End: 07-14-2023 take 1 tablet by mouth once daily Olmesartan-Hydrochlorothiazide 20-12.5 m g tablet Discontinued 1 TAB PO Daily 90 90 April 24, 2023 12:00am July 14, 2023 10:57am hydrOXYzine pamoate 25 mg oral capsule (20 sources) Antihistamine Start: 02-12-2024 take 1 capsule by mouth three times daily as needed Hydroxyzine Pamoate 25 mg capsule Active 25 MG PO Three times daily as needed February 12, 2024 12:00am Start: 04-24-2023 End: 02-12-2024 take 1 capsule by mouth three times daily Hydroxyzine Pamoate 50 mg capsule Discontinued 50 MG PO Three times daily April 24, 2023 3:36pm February 12, 2024 3:29pm FreeTextSig: take 1 capsule by mouth three times a day Oral; Note: Source Status: Taking; Refills: 0; Qty: 90 Each; Provider: SUSHANT BRISENO take 1 capsule by mo [facility] three times daily hydrOXYzine Pamoate 50 MG take 1 capsule by mouth three times a day Oral for 30 Days Active [facility] hydrOXYzine HCl 50 MG 1 tablet as needed Orally every 6 hrs Active LORazepam 1 mg oral tablet (9 sources) Benzodiazepine Start: 11-08-2023 take 1 tablet by mouth three times daily as needed for anxiety Lorazepam 1 mg tablet Active 1 MG PO Three times daily as needed for anxiety November 07, 2023 11:00pm Start: 08-28-2023 End: 11-08-2023 take 1 tablet by mouth every six hours as needed for anxiety Lorazepam 1 mg tablet Discontinued 1 MG PO Every 6 hours as needed for anxiety 7 3 August 27, 2023 11:00pm November 08, 2023 6:47pm methocarbamol 750 mg oral tablet (3 sources) Muscle Relaxant Start: 07-31-2021 End: 08-11-2021 take 1 tablet by mouth four times daily as needed methocarbamol (ROBAXIN) 750 MG tablet Take 1 Tablet by mouth 4 times daily as needed for up to 7 days. 28 Tablet 0 08/04/2021 08/11/2021 Active methylPREDNISolone 4 mg oral tablet (1 source) Corticosteroid Start: 03-31-2024 take 1 tablet by mouth once Methylprednisolone (Medrol (Juan)) 4 mg tablets,dose pack Active 0 PO per package directions March 31, 2024 12:00am PO PER PKG DIR naloxone hydrochloride 40 mg/ml nasal spray (9 sources) Opioid Antagonist Start: 08-04-2021 naloxone 4 mg/0.1 mL nasal liquid Use 1 [place] in one nostril (alternate sides) as needed for Drug Overdose for up to 1 dose. Every 2-3 mins. until help arrives. 1 Each 1 08/04/2021 Active Start: 07-31-2021 0.4 mg, Intrav enous Push, PRN, Starting on 07/31/21 at 0223, Until Discontinued, Respiratory Rate Less Than 8 for adults and less than 12 for Peds or for suspected overdose, Post-op OLANZapine 5 mg oral tablet (20 sources) Atypical Antipsychotic Start: 08-21-2023 take 1 tablet by mouth three times daily as needed Olanzapine 5 mg tablet Active 5 MG PO Three times daily as needed for agitation August 20, 2023 11:00pm Start: 05-25-2022 End: 04-24-2023 take 1 tablet by mouth every six hours as needed Olanzapine 10 mg tablet Discontinued 10 MG PO Q6H as needed for Agitation May 24, 2022 11:34pm April 24, 2023 7:55am Start: 05-15-2022 End: 05-25-2022 take 5 mg by mouth every six hours as needed Olanzapine 10 mg tablet Discontinued 5 MG PO Q6H as needed for Agitation May 15, 2022 12:00am May 24, 2022 11:34pm Start: 05-15-2022 End: 05-25-2022 take 5 mg by mouth every six hours Olanzapine Discontinued 5 MG PO Q6H May 15, 2022 1:00am May 25, 2022 12:34am omeprazole 40 mg delayed release oral capsule (20 sources) Proton Pump Inhibitor Start: 08-28-2023 take 1 capsule by mouth twice daily Omeprazole 40 mg capsule,delayed release(DR/EC) Active 40 MG PO Twice daily August 27, 2023 11:00pm Start: 05-01-2023 End: 08-28-2023 take 1 capsule by mouth once daily before breakfast Omeprazole 40 mg capsule,delayed release(DR/EC) Discontinued 0 .ROUTE .COMPLEX 90 May 01, 2023 11:01am August 28, 2023 11:42am take 1 capsule by mouth EVERY MORNING BEFORE BREAKFAST Start: 03-31-2021 End: 05-01-2023 take 1 capsule by mouth once daily Omeprazole 40 mg capsule,delayed release(DR/EC) Discontinued 40 MG PO Daily April 24, 2023 12:00am May 01, 2023 11:01am FreeTextSi capsule 30 minutes before morning meal Orally Once a day; Note: Source Status: Taking; Refills: 1; Provider: Abdias Hopson 2 ml ondansetron 2 mg/ml injection [...] 07-31-2021 sucralfate (CARAFATE) 1 GM/10ML oral suspension Tylenol Extra Strength 500 MG (13 sources) take 1 tablet by mouth every six hours as needed Tylenol Extra Strength 500 MG 1 tablet as needed Orally every 6 hrs Active vilazodone hydrochloride 10 mg oral tablet (1 source) Start: 01-26-2025 Vilazodone 10 mg tablet Active 10 MG PO March 31, 2024 12:00am Completed/Discontinued Medications Medication Drug Class(es) Dates Sig (Normalized) Sig (Original) acetaminophen 325 mg / HYDROcodone bitartrate 5 mg oral tablet (11 sources) Opioid Agonist Start: 11-10-2016 End: 03-31-2021 take 1-2 tablets by mouth every four hours as needed for pain Hydrocodone-Acetam inophen ([place]) 5-325 mg tablet Discontinued 1 TAB PO Q4H as needed for pain November 10, 2016 March 31, 2021 11:23am 1-2 Tabs Q 4 hours PRN for pain acetaminophen 325 mg / oxyCODONE hydrochloride 5 mg oral tablet (11 sources) Opioid Agonist Start: 04-02-2021 End: 05-11-2022 take 1 tablet by mouth every four hours as needed for pain Oxycodone-Acetamin ophen 5-325 mg Tablet Discontinued 1 TAB PO Q4H as needed for pain 0 April 02, 2021 May 11, 2022 12:32am amitriptyline hydrochloride 75 mg oral tablet (3 sources) Tricyclic Antidepressant Start: 02-12-2024 End: 03-31-2024 take 1 tablet by mouth once daily at bedtime Amitriptyline 75 mg tablet Discontinued 75 MG PO Daily at bedtime February 12, 2024 12:00am March 31, 2024 12:32pm Start: 11-14-2023 End: 02-12-2024 take 1 tablet by mouth once daily at bedtime Amitriptyline 50 mg Tablet Discontinued 50 MG PO Daily at bedtime November 13, 2023 11:00pm February 12, 2024 3:29pm benzonatate 100 mg oral capsule (4 sources) Non-narcotic Antitussive Start: 08-31-2023 End: 09-28-2023 take 1 capsule by mouth three times daily Benzonatate 100 mg capsule Discontinued 100 MG PO Three times daily 23 09August 30, 2023 11:00pm September 28, 2023 12:31pm brexpiprazole 2 mg oral tablet (20 sources) Atypical Antipsychotic Start: 03-31-2021 End: 05-11-2022 take 1 tablet by mouth once daily in the evening Brexpiprazole (Rexulti) 2 mg Tablet Discontinued 2 MG PO Every evening March 31, 2021 12:00am May 11, 2022 12:32am take 1 tablet by claudine th every twenty-four hours Rexulti 1 MG 1 tablet Orally Once a day Active 24 hr buPROPion hydrochloride 150 mg extended release oral tablet (6 sources) Aminoketone Start: 11-14-2023 End: 03-31-2024 Bupropion Hcl 150 mg Tablet Extended Release 24 Hr Discontinued 450 MG PO Daily 45 November 13, 2023 11:00pm March 31, 2024 12:32pm Start: 11-14-2023 take 450 mg by mouth once daily Bupropion Hcl Active 450 MG PO Daily 45 November 14, 2023 12:00am Start: 09-28-2023 End: 11-14-2023 Bupropion Hcl 150 mg tablet extended release 24 hr Discontinued 300 MG PO Daily September 27, 2023 11:00pm November 14, 2023 10:17am Start: 09-28-2023 End: 11-14-2023 take 300 mg by mouth once daily Bupropion Hcl Discontinued 300 MG PO Daily September 28, 2023 12:00am November 14, 2023 11:17am Start: 09-28-2023 take 150 mg by mouth once daily Bupropion Hcl Active 150 MG PO Daily September 28, 2023 12:00am calcium chloride 0.0014 meq/ml / potassium chloride 0.004 meq/ml / sodium chloride 0.103 meq/ml / sodium lactate 0.028 meq/ml injectable solution (1 source) Start: 07-31-2021 End: 08-03-2021 Intravenous, at 75 mL/hr, CONTINUOUS, Starting on 07/31/21 at 0230, Until Mon08/03/21 at 1211 celecoxib 200 mg oral capsule (1 source) Nonsteroidal Anti-inflammatory Drug Start: 07-30-2021 End: 08-01-2021 celecoxib (CeleBREX) capsule 50 ml clindamycin 18 mg/ml injection (1 source) Lincosamide Antibacterial Start: 07-30-2021 End: 07-31-2021 clindamycin 900 mg in dextrose 5 % 50 mL (CLEOCIN) 900 MG/50ML in dextrose 50 mL ivpb Diatrizoate Meglumine & Sodium 66-10 % SOLN (1 source) Start: 08-01-2021 End: 08-01-2021 Diatrizoate Meglumine & Sodium 66-10 % SOLN docusate sodium 100 mg oral tablet (11 sources) Start: 04-24-2023 End: 05-08-2023 take 1 tablet by mouth twice daily as needed for constipation Docusate Sodium 100 mg tablet Discontinued 100 MG PO Twice daily as needed for constipation 60 April 24, 2023 12:00am May 08, 2023 3:41pm Start: 11-22-2022 take 1 capsule by mo [facility] every twenty-four hours Colace 100 MG 1 capsule as needed Orally Once a day for 30 days Nov, Active doxycycline hyclate 100 mg oral capsule (9 sources) Tetracycline-class Drug Start: 08-31-2023 End: 11-08-2023 take 1 capsule by mouth twice daily Doxycycline Hyclate 100 mg capsule Discontinued 100 MG PO Twice daily 14 September 27, 2023 11:00pm November 08, 2023 6:45pm Start: 04-15-2023 take 1 capsule by [facility] every twelve hours Doxycycline Monohydrate 100 MG 1 capsule Orally every 12 hrs for 10 days Apr, Active Start: 12-20-2022 take 1 capsule by [facility] every twelve hours Doxycycline Monohydrate 100 MG 1 capsule Orally every 12 hrs for 10 days Dec, Active 0.4 ml enoxaparin sodium 100 mg/ml prefilled syringe (12 sources) Low Molecular Weight Heparin Start: 04-02-2021 End: 05-11-2022 Enoxaparin (Lovenox) 40 mg/0.4 mL Syringe Discontinued 40 MG SUBCUT DAILY@1000 0 April 02, 2021 12:00am May 11, 2022 12:32am Ergocalciferol (12 sources) Provitamin D2 Compound Start: 08-04-2020 take 1 tablet by mouth once daily Ergocalciferol 50 MCG (1999) 1 tablet Orally Once a day for 90 days Aug, Not-Taking Start: 08-04-2020 take 1 tablet by claudine once daily Ergocalciferol 50 MCG (1999) 1 tablet Orally Once a day for 90 days Aug, Active Start: 08-04-2020 take 1 tablet by claudine once daily Ergocalciferol 50 MCG (1999 UT) 1 tablet Orally Once a day for 90 day(s) Aug, Active ertapenem 1000 mg injection (11 sources) Penem Antibacterial Start: 04-02-2021 End: 05-11-2022 take 1 g intravenously every twenty-four hours Ertapenem 1 gram Recon Soln Discontinued 1 GM IV Q24H 0 April [...] Reuptake Inhibitor Start: 05-11-2022 End: 05-15-2022 take 2 capsules by mouth once daily Fluoxetine 40 mg capsule Discontinued 80 MG PO Daily May 11, 2022 12:00am May 15, 2022 11:11am Start: 05-11-2022 End: 05-15-2022 take 80 mg by mouth once daily Fluoxetine Discontinued 80 MG PO Daily May 11, 2022 1:00am May 15, 2022 12:11pm Start: 06-07-2021 take 1 capsule by [facility] once daily fluoxetine (PROZAC) 20 MG capsule [...] End: 08-01-2021 iohexol (OMNIPAQUE) 300 MG/ML injection 24 hr levomilnacipran 80 mg extended release oral capsule (20 sources) Serotonin and Norepinephrine Reuptake Inhibitor Start: 09-28-2023 End: 11-14-2023 take 1 capsule by mouth once daily Levomilnacipran (Fetzima) 40 mg capsule,extended release 24 hr Discontinued 40 MG PO Daily September 27, 2023 11:00pm November 14, 2023 10:17am Start: 09-28-2023 End: 11-14-2023 take 1 capsule by mouth once daily Levomilnacipran (Fetzima) 80 mg capsule,extended release 24 hr Discontinued 80 MG PO Daily September 27, 2023 11:00pm November 14, 2023 10:17am Start: 04-24-2023 End: 09-28-2023 take 1 capsule by mouth once daily Levomilnacipran 40 mg capsule,extended release 24 hr Discontinued 120 MG PO Daily April 24, 2023 12:00am September 28, 2023 12:33pm FreeTextSig: Oral; Note: Source Status: Taking; Qty: 30 Capsule; Provider: Abdias Posada ( ) Start: 04-24-2023 take 1 capsule by [facility] once daily Levomilnacipran Active 40 MG PO Daily April 24, 2023 1:00am FreeTextSig: Oral; Note: Source Status: Taking; Qty: 30 Capsule; Provider: Abdias Posada ( ) Start: 05-29-2022 End: 04-24-2023 take 1 capsule by mouth once daily Levomilnacipran 80 mg capsule,extended release 24 hr Discontinued 80 MG PO Daily May 28, 2022 11:00pm April 24, 2023 7:55am Start: 05-15-2022 End: 05-29-2022 take 1 capsule by mouth once daily Levomilnacipran (Fetzima) 40 mg Capsule,Extended Release 24 Hr Discontinued 40 MG PO Daily May 15, 2022 12:00am May 29, 2022 9:25am losartan potassium 50 mg oral tablet (20 sources) Angiotensin 2 Receptor Jordi Start: 03-31-2021 End: 05-11-2022 take 1 tablet by mouth once daily in the morning Losartan 50 mg Tablet Discontinued 50 MG PO Every morning March 31, 2021 12:00am May 11, 2022 12:32am 100 ml magnesium sulfate 10 mg/ml injection (2 sources) Start: 08-03-2021 End: 08-03-2021 magnesium sulfate in dextrose 5 % 100 mL ivpb 1,000 mg 100 mL Start: 07-31-2021 End: 07-31-2021 magnesium sulfate 4 GM/100ML in 100 mL ivpb melatonin 3 mg oral tablet (10 sources) Start: 04-24-2023 End: 05-08-2023 take 1 capsule by mouth once daily at bedtime as needed Melatonin 3 mg capsule Discontinued 3 MG PO Daily at bedtime as needed April 24, 2023 12:00am May 08, 2023 3:41pm RA Melatonin 3 M G Oral for 30 Days Not-Taking/PRN metoprolol tartrate 25 mg oral tablet (4 sources) beta-Adrenergic Jordi Start: 09-28-2023 End: 11-08-2023 take 1 tablet by mouth once daily Metoprolol Tartrate 25 mg tablet Discontinued 25 MG PO Daily September 27, 2023 11:00pm November 08, 2023 6:46pm mirtazapine 7.5 mg oral tablet (13 sources) Start: 09-28-2023 End: 11-08-2023 take 1 tablet by mouth once daily Mirtazapine 7.5 mg tablet Discontinued 7.5 MG PO Daily September 27, 2023 11:00pm November 08, 2023 6:47pm Start: 04-24-2023 End: 11-08-2023 take 7.5 mg by mouth once daily at bedtime Mirtazapine (Remeron) 15 mg tablet Discontinued 7.5 MG PO Daily at bedtime April 24, 2023 12:00am November 08, 2023 6:47pm take 1 tablet by claudine th every twenty-four hours Mirtazapine 7.5 MG 1 tablet at bedtime Orally Once a day Active naltrexone 380 mg injection (20 sources) Opioid Antagonist Start: 04-24-2023 End: 08-21-2023 Naltrexone Microspheres (Vivitrol) 380 mg suspension,extended rel recon Discontinued 380 MG IM April 24, 2023 12:00am August 21, 2023 4:26pm FreeTextSig: Intramuscular; Note: Source Status: Taking; Qty: 1 Kit; Provider: Abdias Posada ( ) Start: 05-29-2022 End: 04-24-2023 take 1 tablet by mouth once daily Naltrexone 50 mg Tab let Discontinued 50 MG PO Daily 30 May 28, 2022 11:00pm April 24, 2023 7:55am inject 380 mg by int ramuscular injection every month Vivitrol 380 MG as directed Intramuscular once a month for 30 days Active Vivitrol 380 MG Intramuscular for 30 Days Active nicotine 2 mg chewing gum (18 sources) Cholinergic Nicotinic Agonist Start: 05-15-2022 End: 04-24-2023 Nicotine (Polacrilex) 2 mg Gum Discontinued 2 MG BUCCAL Every 2 hours as needed for Nicotine Cravings 60 May 15, 2022 12:00am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 [HPF] 0-4 [facility] Erythrocytes [#/volume] in B lood by Automated countOrdered By: Art Pa on 11-08-2023 RBC (Bld) [#/Vol] 4.66 10*6/uL Normal 3.60-5.00 [facility] Comment on above: Performed By: #### E AISSATOU, CBC, CMP #### [facility] [address] [place] [address] [place] Ethanol [Mass/volume] in Ser um or PlasmaOrdered By: Art Pa on 11-08-2023 Ethanol [Mass/Vol] mg/dL Normal [facility] Comment on above: Performed By: #### E AISSATOU, CBC, CMP #### [facility] [address] [place] [address] [place] Ethanol [Mass/Vol] TNP [facility] Comment on above: Test not performed Ethyl Alcohol Profileon Percent Ethanol Not performed Normal [facility] Comment on above: Result Comment: PERF ORMED BY: [place] [address] PATHOLOGIST [employer] DANNIE MOODY M.D. Performed By: #### E AISSATOU, CBC, CMP #### [facility] [address] [place] [address] [place] Glucose [Mass/volume] in Ser um or PlasmaOrdered By: Art Pa on 11-08-2023 Glucose [Mass/Vol] 102 mg/dL High 70-100 [facility] Comment on above: ADA recommended refe rence rangeRandom Glucose Reference Range is dependent on time and content of last meal. Glucose of more than 200 mg/dL in a nonstressed, ambulatory subject supports the diagnosis of Diabetes Mellitus. Result Comment: [place] om Glucose Reference Range is dependent on time and content of last meal. Glucose of more than 200 mg/dL in a nonstressed, ambulatory subject supports the diagnosis of Diabetes Mellitus. ADA recommended reference range Performed By: #### E AISSATOU, CBC, CMP #### [facility] [address] Glucose [Mass/volume] in Uri ne by Test stripOrdered By: Art Pa on 11-08-2023 Glucose Test strip (U) [Mass/Vol] Normal mg/dL Normal [facility] HCG ( test) IA.rapi d Ql (U)Ordered By: Art Pa on 11-08-2023 HCG ( test) Ql (U) Negative [facility] HCG,Urineon 11-08-2023 Beta HCG ( test) Ql (U) Negative Normal [facility] Comment on above: Order Comment: Name Collection Type:: Clean-Voided Midstream Result Comment: PERF ORMED BY: [place] [address] PATHOLOGIST [employer] DANNIE MOODY M.D. Performed By: #### C UU, ADDONUAPLUS, URDS, UHCG #### [address] Hematocrit [Volume Fraction] of Blood by Automated countOrdered By: Art Pa on 11-08-2023 Hematocrit (Bld) [Volume fraction] 41.1 % Normal 34.0-46.4 [facility] Comment on above: Performed By: #### E AISSATOU, CBC, CMP #### [facility] [address] [place], [place] [id number] [place] Hemoglobin Test strip Ql (U) Ordered By: Art Pa on 11-08-2023 Hemoglobin Ql (U) 1+ High Negative [facility] Hemoglobin [Mass/volume] in BloodOrdered By: Art Pa on 11-08-2023 Hemoglobin (Bld) [Mass/Vol] 13.6 g/dL Normal 11.8-15.4 [facility] Comment on above: Performed By: #### E AISSATOU, CBC, CMP #### [facility] [address] [place] [address] [place] Hyaline casts [#/area] in Ur ine sediment by Automated countOrdered By: Art Pa on 11-08-2023 Hyaline casts Auto (Urine sed) [#/Area] None [LPF] 0-8 [facility] Ketones [Presence] in Urine by Test stripOrdered By: Art aP on 11-08-2023 Ketones Ql (U) Negative Normal Negative [facility] Comment on above: Order Comment: Name Collection Type:: Clean-Voided Midstream Performed By: #### C UU, ADDONUAPLUS, URDS, UHCG #### [facility] [address] [place] [address] Leukocyte esterase [Presence ] in Urine by Test stripOrdered By: Art Pa on 11-08-2023 Leukocyte esterase Test strip Ql (U) 3+ High Negative [facility] Comment on above: Order Comment: Name Collection Type:: Clean-Voided Midstream Performed By: #### C UU, ADDONUAPLUS, URDS, UHCG #### [place] [address] [place] Leukocytes [#/area] in Urine sediment by Automated countOrdered By: Art Pa on 11-08-2023 WBC Auto (Urine sed) [#/Area] 5-9 [HPF] High 0-4 [facility] Leukocytes [#/volume] correc hemalatha for nucleated erythrocytes in Blood by Automated counOrdered By: Art Pa on 11-08-2023 WBC corrected for nucl RBC Auto (Bld) [#/Vol] 11.4 10*3/uL 3.8-11.6 [facility] Leukocytes [#/volume] in Blo od by Automated countOrdered By: Art Pa on 11-08-2023 WBC (Bld) [#/Vol] 11.4 10*3/uL Normal 3.8-11.6 [facility] Comment on above: Performed By: #### E AISSATOU, CBC, CMP #### [address] Lipid Panelon 11-08-2023 LDL Cholesterol,Calculated 86 mg/dL Normal 0-100 [facility] Comment on above: Order Comment: KAYLIE Ewrin Comment use from ER Result Comment: LDL ATP III CLASSIFICATION LDL less than 100 mg/dL Optimal LDL 100-129 mg/dL Near or above optimal LDL 130-159 mg/dL Borderline high LDL 160-189 mg/dL High LDL greater than 189 mg/dL Very high Performed By: #### V [id number], LIPID, TSH3 wRFLX #### [address] Triglyceride w/Reflex 133 mg/dL Normal 0-149 [facility] Comment on above: Order Comment: KAYLIE Erwin Comment use from ER Result Comment: TRIG ATP III CLASSIFICATION TRIG less than 150 mg/dL Normal TRIG 150-199 mg/dL Borderline high TRIG 200-500 mg/dL High TRIG greater than 500 mg/dL Very high Standard traceable to the Center for Disease Conrtrol and Prevention (CDC) test method. Performed By: #### V [id number], LIPID, TSH3 wRFLX #### [address] VLDL CHOLESTEROL 26 mg/dL Normal [facility] Comment on above: Order Comment: KAYLIE Erwin Comment use from ER Performed By: #### V [id number], LIPID, TSH3 wRFLX #### [address] Lymphocytes [#/volume] in Bl ood by Automated countOrdered By: Art Pa on 11-08-2023 Lymphocytes (Bld) [#/Vol] 2.5 10*3/uL Normal 1.00-4.8 [facility] Comment on above: Performed By: #### E AISSATOU, CBC, CMP #### [facility] [address] [place] [address] [place] Lymphocytes/100 leukocytes i n Blood by Automated countOrdered By: Art Pa on 11-08-2023 Lymphocytes/100 WBC (Bld) 22.0 % Normal . [facility] Comment on above: Performed By: #### E AISSATOU CBC, CMP #### [address] MCH [Entitic mass] by Automa hemalatha countOrdered By: Art Pa on 11-08-2023 MCH (RBC) [Entitic mass] 29.3 pg Normal 24.7-34.3 [facility] Comment on above: Performed By: #### E AISSATOU, CBC, CMP #### [address] MCHC Auto (RBC) [Mass/Vol]Or dered By: Art Pa on 11-08-2023 MCHC (RBC) [Mass/Vol] 33.2 g/dL 32.0-35.0 [facility] MCV [Entitic volume] by Auto mated countOrdered By: Art Pa on 11-08-2023 MCV (RBC) [Entitic vol] 88.1 fL Normal 80-100 [facility] Comment on above: Performed By: #### E AISSATOU CBC, CMP #### [address] Monocyte distribution width [Entitic volume] in Blood by AutomatedOrdered By: Art Pa on 11-08-2023 Monocyte distribution width Auto (Bld) [Entitic vol] 17.72 % 0.00-20.00 [facility] Mucus [Presence] in Urine by AutomatedOrdered By: Art Pa on 11-08-2023 Mucus Auto Ql (U) Rare [LPF] [facility] Neutrophils [#/volume] in Bl ood by Automated countOrdered By: Art Pa on 11-08-2023 Neutrophils (Bld) [#/Vol] 7.9 10*3/uL High 1.8-7.7 [facility] Comment on above: Performed By: #### E AISSATOU, CBC, CMP #### [address] Nitrite Test strip Ql (U)Ord ered By: Art Pa on 11-08-2023 Nitrite Ql (U) Negative Negative [facility] No Panel InformationOrdered By: Art Pa on 11-08-2023 Estimated GFR (CKD-EPI) > 60.0 mL/Min [facility] Creatinine Clearance (Chem 97.34 [facility] Nucleated erythrocytes [Pres ence] in Blood by Automated countOrdered By: Art Pa on 11-08-2023 Nucleated RBC Auto Ql (Bld) 0.0 /100{WBC} 0-0.5 [facility] Opiates [Presence] in Urine by Screen methodOrdered By: Art Pa on 11-08-2023 Opiates Screen Ql (U) Negative Negative [facility] Phencyclidine Screen Ql (U)O rdered By: Art Pa on 11-08-2023 Phencyclidine Ql (U) Negative Negative [facility] Platelet mean volume [Entiti c volume] in Blood by Automated countOrdered By: Art Pa on 11-08-2023 Platelet mean volume (Bld) [Entitic vol] 7.9 fL Normal 6.3-10.7 [facility] Comment on above: Performed By: #### E AISSATOU, CBC, CMP #### [facility] [address] [place] [address] [place] Platelets [#/volume] in Bloo d by Automated countOrdered By: Art Pa on 11-08-2023 Platelets (Bld) [#/Vol] 286 10*3/uL Normal 150-450 [facility] Comment on above: Performed By: #### E AISSATOU, CBC, CMP #### [facility] [address] [place] [address] [place] Potassium [Moles/volume] in Serum or PlasmaOrdered By: Art Pa on 11-08-2023 Potassium [Moles/Vol] 4.1 mmol/L Normal 3.5-5.1 [facility] Comment on above: Performed By: #### E AISSATOU, CBC, CMP #### [facility] [address] [place] [address] [place] Protein Test strip (U) [Mass /Vol]Ordered By: Art Pa on 11-08-2023 Protein (U) [Mass/Vol] Negative Negative [facility] Protein [Mass/volume] in Ser um or PlasmaOrdered By: Art Pa on 11-08-2023 Protein [Mass/Vol] 7.5 g/dL Normal 6.4-8.9 [facility] Comment on above: Performed By: #### E AISSATOU CBC, CMP #### [facility] [address] Serum globulin measurement b y calculation (mass/volume)Ordered By: Art Pa on 11-08-2023 Globulin (S) [Mass/Vol] 3.4 g/dL Normal [facility] Comment on above: Performed By: #### E AISSATOU CBC, CMP #### [address] Serum or plasma albumin/glob ulin mass ratioOrdered By: Art Pa on 11-08-2023 Albumin/Globulin [Mass ratio] 1.2 {ratio} Normal [facility] Comment on above: Performed By: #### E AISSATOU CBC, CMP #### [facility] [address] [place] [address] Serum or plasma anion gap de terminationOrdered By: Art Pa on 11-08-2023 Anion gap [Moles/Vol] 10.0 mmol/L Normal 6.0-15.0 [facility] Comment on above: Performed By: #### E AISSATOU CBC, CMP #### [facility] [address] [place] [address] Serum or plasma high density lipoprotein (HDL) cholesterol measurementOrdered By: Geo Loomis on 11-08-2023 Cholesterol in HDL [Mass/Vol] 49 mg/dL Normal 23-92 [facility] Comment on above: HDL CHOL ATP-III CLA SSIFICATION Cardiovascular RiskHDL > or equal to 60 mg/dL LOWHDL < 40 mg/dL HIGH Order Comment: KAYLIE Erwin Comment use from ER Result Comment: HDL CHOL ATP-III CLASSIFICATION Cardiovascular Risk HDL > or equal to 60 mg/dL LOW HDL < 40 mg/dL HIGH Performed By: #### V [id number], LIPID, TSH3 wRFLX #### [facility] [address] Serum or plasma total choles terol/high density lipoprotein (HDL) cholesterol mass ratOrdered By: Geo Loomis on 11-08-2023 Cholesterol.total/Polina sterol in HDL [Mass ratio] 3.3 {ratio} Normal <5.0 [facility] Comment on above: Order Comment: KAYLIE Erwin Comment use from ER Performed By: #### V [id number], LIPID, TSH3 wRFLX #### [facility] [address] Sodium [Moles/volume] in Ser um or PlasmaOrdered By: Art Pa on 11-08-2023 Sodium [Moles/Vol] 136 mmol/L Normal 136-145 [facility] Comment on above: Performed By: #### E AISSATOU, CBC, CMP #### [facility] [address] [place] [address] Specific gravity Test strip (U) [Rel density]Ordered By: Art Pa on 11-08-2023 Specific gravity (U) [Rel density] 1.018 1.001-1.030 [facility] Thyroid Stim Hormone w/Rflxo n 11-08-2023 Thyroid Stim Hormone w/Rflx 3.00 u[iU]/mL Normal 0.45-5.33 [facility] Comment on above: Order Comment: KAYLIE Erwin Comment use from ER Performed By: #### V [id number], LIPID, TSH3 wRFLX #### [facility] [address] [place] [address] [place] Thyrotropin [Units/volume] i n Serum or PlasmaOrdered By: Geo Loomis on 11-08-2023 TSH Qn 3.00 m[IU]/L 0.45-5.33 [facility] Triglyceride [Mass/volume] i n Serum or PlasmaOrdered By: Geo Loomis on 11-08-2023 Triglyceride [Mass/Vol] 133 mg/dL 0-149 [facility] Comment on above: TRIG ATP III CLASSIF ICATIONTRIG less than 150 mg/dL NormalTRIG 150-199 mg/dL Borderline highTRIG 200-500 mg/dL High TRIG greater than 500 mg/dL Very highStandard traceable to the Center for Disease Conrtrol and Prevention (CDC) test method. Urea nitrogen [Mass/volume] in Serum or PlasmaOrdered By: Art Pa on 11-08-2023 Urea nitrogen [Mass/Vol] 13 mg/dL Normal 7-25 [facility] Comment on above: Performed By: #### E AISSATOU, CBC, CMP #### [facility] [address] Urine Cultureon 11-08-2023 Bacteria identified Cx Nom (U) >100,000 colonies/ml mixed bacterial skin contaminants 2 Days PERFORMED BY: [place] [address] PATHOLOGIST [employer] DANNIE MOODY M.D. Normal [facility] Comment on above: Performed By: #### C UU, ADDONUAPLUS, URDS, UHCG #### [facility] [address] [place] [address] Urine appearanceOrdered By: Art Pa on 11-08-2023 Appearance (U) Clear Normal Clear [facility] Comment on above: Order Comment: Name Collection Type:: Clean-Voided Midstream Performed By: #### C UU, ADDONUAPLUS, URDS, UHCG #### [facility] [address] [place] [address] Urine culture routineOrdered By: Art Pa on 11-08-2023 Bacteria identified Cx Nom (U) 2 Days [facility] Urobilinogen Test strip (U) [Mass/Vol]Ordered By: Art Pa on 11-08-2023 Urobilinogen (U) [Mass/Vol] Normal mg/dL Normal [facility] Vitamin D 25 Hydroxy Totalon 11-08-2023 Vitamin D 25 Hydroxy Total 49.5 ng/mL Normal 30-100 [facility] Comment on above: Order Comment: KAYLIE Erwin Comment use from ER Result Comment: JAYSON MIN D STATUS 25(OH)VITAMIN D RANGE (ng/mL) Deficient <20 Insufficient 20 to <30 Sufficient 30 to 100 Reference: Braeden MF,Marsha PRIEST, Ez MULTANI, et al. Evaluation,treatment, and prevention of vitamin D deficiency; an Endocrine Society clinical practice guideline. JCEM. 2010; 96(7):1911-30. PERFORMED BY: [facility] [address] [place] [address] PATHOLOGIST [employer]ER DANNIE MOODY M.D. Performed By: #### V [id number], LIPID, TSH3 wRFLX #### [facility] [address] Vitamin D+Metabolites [Mass/ volume] in Serum or PlasmaOrdered By: Geo Loomis on 11-08-2023 Vitamin D+Metabolites [Mass/Vol] 49.5 ng/mL 30-100 [facility] Comment on above: VITAMIN D STATUS 25( [place])VITAMIN D RANGE (ng/mL) Deficient <20 Insufficient 20 to <30Sufficient 30 to 100Reference: Braeden MF,Marsha NC, Ez MULTANI, et al. Evaluation,treatment, and prevention of vitamin D deficiency; an Endocrine Society clinical practice guideline. JCEM. 2010; 96(7):1911-30. pH of Urine by Test stripOrd ered By: Art Pa on 11-08-2023 pH (U) 5.0 [pH] Normal 5.0-9.0 [facility] Comment on above: Order Comment: Name Collection Type:: Clean-Voided Midstream Performed By: #### C UU, ADDONUAPLUS, URDS, UHCG #### [facility] [address] [place] [id number] [facility] Office Visiton 06-28-2023 Follow-up visit [id number] Shahla Arias 1980 F Date Provider Department Center 06/28/2023 [facility]-BENITO PRADO Family History Problem Relation Age of Onset Hypertension Mother Cancer Mother Stroke Mother Family Status - Relation Status Age at Mother Level of Service:[address] [place] OFFICE/OUTPATIENT NEW MODERATE MDM 45 MINUTES Normal [facility] Alanine aminotransferase [En zymatic activity/volume] in Serum or PlasmaOrdered By: Antolin Abarca on 05-24-2022 ALT [Catalytic activity/Vol] 15 U/L 7-52 [facility] Albumin [Mass/volume] in Ser um or Plasma by Bromocresol green (BCG) dye binding methoOrdered By: Antolin Abarca on 05-24-2022 Albumin BCG dye [Mass/Vol] 4.0 g/dL 3.5-5.7 [facility] Alkaline phosphatase [Enzyma tic activity/volume] in Serum or PlasmaOrdered By: Antolin Abarca on 05-24-2022 ALP [Catalytic activity/Vol] 61 U/L 34-104 [facility] Amphetamine Screen Ql (U)Ord ered By: Antolin Abarca on 05-24-2022 Amphetamines Ql (U) Negative Negative [facility] Aspartate aminotransferase [ Enzymatic activity/volume] in Serum or PlasmaOrdered By: Antolin Abarca on 05-24-2022 AST [Catalytic activity/Vol] 19 U/L 13-39 [facility] Automated epithelial cells c ount in urine sediment (number/area)Ordered By: Antolin Abarca on 05-24-2022 Epithelial cells Auto (Urine sed) [#/Area] Rare [HPF] 0-2 [facility] Automated erythrocytes count in urine sediment (number/area)Ordered By: Antolin Abarca on 05-24-2022 RBC Auto (Urine sed) [#/Area] 1-2 [HPF] 0-4 [facility] Automated leukocytes count i n urine sediment (number/area)Ordered By: Antolin Abarca on 05-24-2022 WBC Auto (Urine sed) [#/Area] 1-2 [HPF] 0-4 [facility] Automated urine hyaline cast s count (number/volume)Ordered By: Antolin Abarca on 05-24-2022 Hyaline casts Auto (U) [#/Vol] Rare [LPF] 0-1 [facility] Barbiturates [Presence] in U rine by Screen methodOrdered By: Antolin Abarca on 05-24-2022 Barbiturates Screen Ql (U) Negative Negative [facility] Basophils Auto (Bld) [#/Vol] Ordered By: Antolin Abarca on 05-24-2022 Basophils (Bld) [#/Vol] 0.0 10*3/uL 0.0-0.2 [facility] Basophils/100 WBC Auto (Bld) Ordered By: Antolin Abarca on 05-24-2022 Basophils/100 WBC (Bld) 0.4 % . [facility] Benzodiazepines Screen Ql (U )Ordered By: Antolin Abarca on 05-24-2022 Benzodiazepines Ql (U) Negative Negative [facility] Benzoylecgonine [Presence] i n Urine by Screen methodOrdered By: Antolin Abarca on 05-24-2022 Benzoylecgonine Screen Ql (U) Negative Negative [facility] Bilirubin Test strip Ql (U)O rdered By: Antolin Abarca on 05-24-2022 Bilirubin Ql (U) Negative Negative [facility] Bilirubin.total [Mass/volume ] in Serum or PlasmaOrdered By: Antolin Abarca on 05-24-2022 Bilirubin [Mass/Vol] 0.3 mg/dL 0.3-1.0 [facility] COVID-19 SOFIAOrdered By: Hay Abarca on 05-24-2022 SARS-CoV+SARS-CoV-2 (COVID-19) Ag IA.rapid Ql (Resp) Negative Negative [facility] Comment on above: This is a duplicate Rayna SARS Antigen (SKYLA) result to be used for statistical tracking purpose only. Calcium [Mass/volume] in Ser um or PlasmaOrdered By: Antolin Abarca on 05-24-2022 Calcium [Mass/Vol] 9.3 mg/dL 8.6-10.3 [facility] Cannabinoids [Presence] in U rine by Screen methodOrdered By: Antolin Abarca on 05-24-2022 Cannabinoids Screen Ql (U) Negative Negative [facility] Comment on above: These are unconfirme d results and should not be used for legal purposes. Drug Cut-Off Concentration: AMPH 1000 ng/mL SANDEEP 200 ng/mL JERSON 200 ng/mL COCM 300 ng/mL OP 300 ng/mL PCP 25 ng/mL THC 20 ng/mL Carbon dioxide, total [Moles /volume] in Serum or PlasmaOrdered By: Antolin Abarca on 05-24-2022 CO2 [Moles/Vol] 20.9 mmol/L 21.0-31.0 [facility] Chloride [Moles/volume] in S monse or PlasmaOrdered By: Antolin Abarca on 05-24-2022 Chloride [Moles/Vol] 108 mmol/L 98-107 [facility] Color Auto (U)Ordered By: Hay bAarca on 05-24-2022 Color (U) Yellow Yellow [facility] Creatinine [Mass/volume] in Serum or PlasmaOrdered By: Antolin Abarca on 05-24-2022 Creatinine [Mass/Vol] 0.79 mg/dL 0.60-1.20 [facility]ir [facility] Eosinophils Auto (Bld) [#/Vo l]Ordered By: Antolin Abarca on 05-24-2022 Eosinophils (Bld) [#/Vol] 0.3 10*3/uL 0.0-0.45 [facility] Eosinophils/100 WBC Auto (Bl d)Ordered By: Antolin Abarca on 05-24-2022 Eosinophils/100 WBC (Bld) 4.2 % . [facility] Erythrocyte distribution wid th Auto (RBC) [Ratio]Ordered By: Antolin Abarca on 05-24-2022 Erythrocyte distribution width (RBC) [Ratio] 15.6 % 11.9-15.3 [facility] Ethanol [Mass/volume] in Ser um or PlasmaOrdered By: Antolin Abarca on 05-24-2022 Ethanol [Mass/Vol] 163 mg/dL [facility] Ethanol [Mass/Vol] 0.163 % [facility] Globulin Calc (S) [Mass/Vol] Ordered By: Antolin Abarca on 05-24-2022 Globulin (S) [Mass/Vol] 2.8 g/dL [facility] Glucose [Mass/volume] in Ser um or PlasmaOrdered By: Antolin Abarca on 05-24-2022 Glucose [Mass/Vol] 83 mg/dL 74-109 [facility] Comment on above: ADA recommended refe rence rangeRandom Glucose Reference Range is dependent on time and content of last meal. Glucose of more than 200 mg/dL in a nonstressed, ambulatory subject supports the diagnosis of Diabetes Mellitus. HCG ( test) IA.rapi d Ql (U)Ordered By: Antolin Abarca on 05-24-2022 HCG ( test) Ql (U) Negative [facility] Hematocrit Auto (Bld) [Volum e fraction]Ordered By: Antolin Abarca on 05-24-2022 Hematocrit (Bld) [Volume fraction] 40.1 % 34.0-46.4 [facility] Hemoglobin [Mass/volume] in BloodOrdered By: Antolin Abarca on 05-24-2022 Hemoglobin (Bld) [Mass/Vol] 13.2 g/dL 11.8-15.4 [facility] Ketones Auto test strip (U) [Mass/Vol]Ordered By: Antolin Abarca on 05-24-2022 Ketones (U) [Mass/Vol] Negative Negative Fi [facility] Laboratory - Chemistry and C hemistry - challengeOrdered By: Antolin Abarca on 05-24-2022 GFR/1.73 sq M.predicted MDRD (S/P/Bld) [Vol rate/Area] mL/min/{1.73_m2} [facility] Leukocytes [#/volume] correc hemalatha for nucleated erythrocytes in Blood by Automated counOrdered By: Antolin Abarca on 05-24-2022 WBC corrected for nucl RBC Auto (Bld) [#/Vol] 7.0 10*3/uL 3.8-11.6 [facility] Lymphocytes Auto (Bld) [#/Vo l]Ordered By: Antolin Abarca on 05-24-2022 Lymphocytes (Bld) [#/Vol] 2.1 10*3/uL 1.00-4.8 [facility] Lymphocytes/100 WBC Auto (Bl d)Ordered By: Antolin Abarca on 05-24-2022 Lymphocytes/100 WBC (Bld) 29.2 % . [facility] MCH Auto (RBC) [Entitic mass ]Ordered By: Antolin Abarca on 05-24-2022 MCH (RBC) [Entitic mass] 29.2 pg 24.7-34.3 [facility] MCHC Auto (RBC) [Mass/Vol]Or dered By: Antolin Abarca on 05-24-2022 MCHC (RBC) [Mass/Vol] 33.0 g/dL 32.0-35.0 [facility] MCV Auto (RBC) [Entitic vol] Ordered By: Antolin Abarca on 05-24-2022 MCV (RBC) [Entitic vol] 88.6 fL 80-100 [facility] Monocyte distribution width [Entitic volume] in Blood by AutomatedOrdered By: Antolin Abarca on 05-24-2022 Monocyte distribution width Auto (Bld) [Entitic vol] 17.73 % 0.00-20.00 [facility] Monocytes Auto (Bld) [#/Vol] Ordered By: Antolin Abarca on 05-24-2022 Monocytes (Bld) [#/Vol] 0.6 10*3/uL 0.0-0.8 [facility] Monocytes/100 WBC Auto (Bld) Ordered By: Antolin Abarca on 05-24-2022 Monocytes/100 WBC (Bld) 8.2 % . [facility] Neutrophils Auto (Bld) [#/Vo l]Ordered By: Antolin Abarca on 05-24-2022 Neutrophils (Bld) [#/Vol] 4.1 10*3/uL 1.8-7.7 [facility] Neutrophils/100 WBC Auto (Bl d)Ordered By: Antolin Abarca on 05-24-2022 Neutrophils/100 WBC (Bld) 58.0 % . [facility] Nitrite Test strip Ql (U)Ord ered By: Antolin Abarca on 05-24-2022 Nitrite Ql (U) Negative Negative [facility] No Panel InformationOrdered By: Antolin Abarca on 05-24-2022 Pharmacy Creatinine Clearance (Chem 107.39 [facility] SARS Antigen (LFIA) [facility] Nucleated erythrocytes [Pres ence] in Blood by Automated countOrdered By: Antolin Abarca on 05-24-2022 Nucleated RBC Auto Ql (Bld) 0.0 /100{WBC} 0-0.5 [facility] Opiates [Presence] in Urine by Screen methodOrdered By: Antolin Abarca on 05-24-2022 Opiates Screen Ql (U) Negative Negative Fir [facility] Phencyclidine Screen Ql (U)O rdered By: Antolin Abarca on 05-24-2022 Phencyclidine Ql (U) Negative Negative [facility] Platelet mean volume Auto (B ld) [Entitic vol]Ordered By: Antolin Abarca on 05-24-2022 Platelet mean volume (Bld) [Entitic vol] 7.3 fL 6.3-10.7 [facility] Platelets Auto (Bld) [#/Vol] Ordered By: Antolin Abarca on 05-24-2022 Platelets (Bld) [#/Vol] 285 10*3/uL 150-450 [facility] Potassium [Moles/volume] in Serum or PlasmaOrdered By: Antolin Abarca on 05-24-2022 Potassium [Moles/Vol] 4.4 mmol/L 3.5-5.1 [facility] Protein Auto test strip (U) [Mass/Vol]Ordered By: Antolin Abarca on 05-24-2022 Protein (U) [Mass/Vol] Negative Negative Fi [facility] Protein [Mass/volume] in Ser um or PlasmaOrdered By: Antolin Abarca on 05-24-2022 Protein [Mass/Vol] 6.8 g/dL 6.4-8.9 [facility] RBC Auto (Bld) [#/Vol]Ordere d By: Antolin Abarca on 05-24-2022 RBC (Bld) [#/Vol] 4.53 10*6/uL 3.60-5.00 [facility] Serum or plasma albumin/glob ulin mass ratioOrdered By: Antolin Abarca on 05-24-2022 Albumin/Globulin [Mass ratio] 1.4 {ratio} [facility] Serum or plasma anion gap de terminationOrdered By: Antolin Abarca on 05-24-2022 Anion gap [Moles/Vol] 13.5 mmol/L 6.0-15.0 [facility] Sodium [Moles/volume] in Ser um or PlasmaOrdered By: Antolin Abarca on 05-24-2022 Sodium [Moles/Vol] 138 mmol/L 136-145 [facility] Specific gravity Auto test s trip (U) [Rel density]Ordered By: Antolin Abarca on 05-24-2022 Specific gravity (U) [Rel density] 1.000 1.001-1.030 [facility] Urea nitrogen [Mass/volume] in Serum or PlasmaOrdered By: Antolin Abarca on 05-24-2022 Urea nitrogen [Mass/Vol] 8 mg/dL 7-25 [facility] Urine bacteria detection by automated methodOrdered By: Antolin Abarca on 05-24-2022 Bacteria Auto Ql (U) Rare None Seen [facility] Urine clarity by refractomet ry automatedOrdered By: Antolin Abarca on 05-24-2022 Clarity Refractometry automated (U) Clear Clear [facility] Urine glucose measurement by automated test strip (mass/volume)Ordered By: Antolin Abarca on 05-24-2022 Glucose Auto test strip (U) [Mass/Vol] Normal mg/dL Normal [facility] Urine hemoglobin detection b y automated test stripOrdered By: Antolin Abarca on 05-24-2022 Hemoglobin Auto test strip Ql (U) 2+ Negative [facility] Urine leukocyte esterase det ection by automated test stripOrdered By: Antolin Abarca on 05-24-2022 Leukocyte esterase Auto test strip Ql (U) 2+ Negative [facility] Urobilinogen Auto test strip (U) [Mass/Vol]Ordered By: Antolin Abarca on 05-24-2022 Urobilinogen (U) [Mass/Vol] Normal mg/dL Normal [facility] WBC Auto (Bld) [#/Vol]Ordere d By: Antolin Abarca on 05-24-2022 WBC (Bld) [#/Vol] 7.0 10*3/uL 3.8-11.6 [facility] pH Auto test strip (U)Ordere d By: Antolin Abarca on 05-24-2022 pH (U) 6.0 [pH] 5.0-9.0 [facility] Cholesterol [Mass/volume] in Serum or PlasmaOrdered By: Geo Loomis on 05-11-2022 Cholesterol [Mass/Vol] 154 mg/dL 140-200 [facility] Comment on above: Chol less than 200 m g/dl low riskChol 201-239 mg/dl borderline riskChol 240 mg/dl and greater high risk Cholesterol in LDL Calc [Mas s/Vol]Ordered By: Geo Loomis on 05-11-2022 Cholesterol in LDL [Mass/Vol] 76 mg/dL 0-100 [facility] Comment on above: LDL ATP III CLASSIFI CATIONLDL less than 100 mg/dL OptimalLDL 100-129 mg/dL Near or above optimalLDL 130-159 mg/dL Borderline highLDL 160-189 mg/dL HighLDL greater than 189 mg/dL Very high Cholesterol in VLDL Calc [Ma ss/Vol]Ordered By: Geo Loomis on 05-11-2022 Cholesterol in VLDL [Mass/Vol] 24 mg/dL [facility] Serum or plasma high density lipoprotein (HDL) cholesterol measurementOrdered By: Geo Loomis on 05-11-2022 Cholesterol in HDL [Mass/Vol] 54 mg/dL 35-85 [facility] Comment on above: HDL CHOL ATP-III CLA SSIFICATION Cardiovascular RiskHDL > or equal to 60 mg/dL LOWHDL < 40 mg/dL HIGH Serum or plasma total choles terol/high density lipoprotein (HDL) cholesterol mass ratOrdered By: Goe Loomis on 05-11-2022 Cholesterol.total/Polina sterol in HDL [Mass ratio] 2.9 {ratio} <5.0 [facility] Thyrotropin [Units/volume] i n Serum or PlasmaOrdered By: Geo Loomis on 05-11-2022 TSH Qn 1.87 m[IU]/L 0.45-5.33 [facility] Triglyceride [Mass/volume] i n Serum or PlasmaOrdered By: Geo Loomis on 05-11-2022 Triglyceride [Mass/Vol] 122 mg/dL 0-149 [facility] Comment on above: TRIG ATP III CLASSIF ICATIONTRIG less than 150 mg/dL NormalTRIG 150-199 mg/dL Borderline highTRIG 200-500 mg/dL High TRIG greater than 500 mg/dL Very highStandard traceable to the Center for Disease Conrtrol and Prevention (CDC) test method. Vitamin D+Metabolites [Mass/ volume] in Serum or PlasmaOrdered By: Geo Loomis on 05-11-2022 Vitamin D+Metabolites [Mass/Vol] 22.0 ng/mL 30-100 [facility] Comment on above: VITAMIN D STATUS [...] 05-10-2022 ALT [Catalytic activity/Vol] 17 U/L 7-52 [facility] Albumin [Mass/volume] in Ser um or Plasma by Bromocresol green (BCG) dye binding methoOrdered By: Antolin Abarca on 05-10-2022 Albumin BCG dye [Mass/Vol] 4.0 g/dL 3.5-5.7 [facility] Alkaline phosphatase [Enzyma tic activity/volume] in Serum or PlasmaOrdered By: Antolin Abarca on 05-10-2022 ALP [Catalytic activity/Vol] 63 U/L 34-104 [facility] Amphetamine Screen Ql (U)Ord ered By: Antolin Abarca on 05-10-2022 Amphetamines Ql (U) Negative Negative [facility] Aspartate aminotransferase [ Enzymatic activity/volume] in Serum or PlasmaOrdered By: Antolin Abarca on 05-10-2022 AST [Catalytic activity/Vol] 17 U/L 13-39 [facility] Automated erythrocytes count in urine sediment (number/area)Ordered By: Antolin Abarca on 05-10-2022 RBC Auto (Urine sed) [#/Area] 20-49 [HPF] 0-4 [facility] Automated leukocytes count i n urine sediment (number/area)Ordered By: Antolin Abarca on 05-10-2022 WBC Auto (Urine sed) [#/Area] 20-49 [HPF] 0-4 [facility] Automated urine hyaline cast s count (number/volume)Ordered By: Antolin Abarca on 05-10-2022 Hyaline casts Auto (U) [#/Vol] None seen [LPF] 0-1 [facility] Barbiturates [Presence] in U rine by Screen methodOrdered By: Antolin Abarca on 05-10-2022 Barbiturates Screen Ql (U) Negative Negative [facility] Basophils Auto (Bld) [#/Vol] Ordered By: Antolin Abarca on 05-10-2022 Basophils (Bld) [#/Vol] 0.1 10*3/uL 0.0-0.2 [facility] Basophils/100 WBC Auto (Bld) Ordered By: Antolin Abarca on 05-10-2022 Basophils/100 WBC (Bld) 0.8 % . [facility] Benzodiazepines Screen Ql (U )Ordered By: Antolin Abarca on 05-10-2022 Benzodiazepines Ql (U) Negative Negative Fi [facility] Benzoylecgonine [Presence] i n Urine by Screen methodOrdered By: Antolin Abarca on 05-10-2022 Benzoylecgonine Screen Ql (U) Negative Negative [facility] Bilirubin Test strip Ql (U)O rdered By: Antolin Abarca on 05-10-2022 Bilirubin Ql (U) Negative Negative [facility] Bilirubin.total [Mass/volume ] in Serum or PlasmaOrdered By: Antolin Abarca on 05-10-2022 Bilirubin [Mass/Vol] 0.9 mg/dL 0.3-1.0 [facility] Calcium [Mass/volume] in Ser um or PlasmaOrdered By: Antolin Abarca on 05-10-2022 Calcium [Mass/Vol] 9.5 mg/dL 8.6-10.3 [facility] Cannabinoids [Presence] in U rine by Screen methodOrdered By: Antolin Abarca on 05-10-2022 Cannabinoids Screen Ql (U) Negative Negative [facility] Comment on above: These are unconfirme d results and should not be used for legal purposes. Drug Cut-Off Concentration: AMPH 1000 ng/mL SANDEEP 200 ng/mL JERSON 200 ng/mL COCM 300 ng/mL OP 300 ng/mL PCP 25 ng/mL THC 20 ng/mL Carbon dioxide, total [Moles /volume] in Serum or PlasmaOrdered By: Antolin Abarca on 05-10-2022 CO2 [Moles/Vol] 28.1 mmol/L 21.0-31.0 [facility] Casts typing in urine sedime nt by light microscopyOrdered By: Antolin Abarca on 05-10-2022 Casts LM Nom (Urine sed) None seen [LPF] None Seen [facility] Chloride [Moles/volume] in S monse or PlasmaOrdered By: Antolin Abarca on 05-10-2022 Chloride [Moles/Vol] 103 mmol/L 98-107 [facility] Color Auto (U)Ordered By: Hay Abarca on 05-10-2022 Color (U) Dark yellow Yellow [facility] Creatinine [Mass/volume] in Serum or PlasmaOrdered By: Antolin Abarca on 05-10-2022 Creatinine [Mass/Vol] 0.81 mg/dL 0.60-1.20 [facility] Eosinophils Auto (Bld) [#/Vo l]Ordered By: Antolin Abarca on 05-10-2022 Eosinophils (Bld) [#/Vol] 0.2 10*3/uL 0.0-0.45 [facility] Eosinophils/100 WBC Auto (Bl d)Ordered By: Antolin Abarca on 05-10-2022 Eosinophils/100 WBC (Bld) 1.9 % . [facility] Erythrocyte distribution wid th Auto (RBC) [Ratio]Ordered By: Antolin Abarca on 05-10-2022 Erythrocyte distribution width (RBC) [Ratio] 15.1 % 11.9-15.3 [facility] Ethanol [Mass/volume] in Ser um or PlasmaOrdered By: Antolin Abarca on 05-10-2022 Ethanol [Mass/Vol] mg/dL [facility] Ethanol [Mass/Vol] TNP [facility] Comment on above: Test not performed Globulin Calc (S) [Mass/Vol] Ordered By: Antolin Abarca on 05-10-2022 Globulin (S) [Mass/Vol] 2.9 g/dL [facility] Glucose [Mass/volume] in Ser um or PlasmaOrdered By: Antolin Abarca on 05-10-2022 Glucose [Mass/Vol] 87 mg/dL 74-109 [facility] Comment on above: ADA recommended refe rence rangeRandom Glucose Reference Range is dependent on time and content of last meal. Glucose of more than 200 mg/dL in a nonstressed, ambulatory subject supports the diagnosis of Diabetes Mellitus. HCG ( test) IA.rapi d Ql (U)Ordered By: Antolin Abarca on 05-10-2022 HCG ( test) Ql (U) Negative [facility] Hematocrit Auto (Bld) [Volum e fraction]Ordered By: Antolin Abarca on 05-10-2022 Hematocrit (Bld) [Volume fraction] 42.9 % 34.0-46.4 [facility] Hemoglobin [Mass/volume] in BloodOrdered By: Antloin Abarca on 05-10-2022 Hemoglobin (Bld) [Mass/Vol] 14.1 g/dL 11.8-15.4 [facility] Ketones Auto test strip (U) [Mass/Vol]Ordered By: Antolin Abarca on 05-10-2022 Ketones (U) [Mass/Vol] Trace Negative Fi [facility] Laboratory - Chemistry and C hemistry - challengeOrdered By: Antolin Abarca on 05-10-2022 GFR/1.73 sq M.predicted MDRD (S/P/Bld) [Vol rate/Area] mL/min/{1.73_m2} [facility] Leukocytes [#/volume] correc hemalatha for nucleated erythrocytes in Blood by Automated counOrdered By: Antolin Abarca on 05-10-2022 WBC corrected for nucl RBC Auto (Bld) [#/Vol] 10.7 10*3/uL 3.8-11.6 [facility] Lymphocytes Auto (Bld) [#/Vo l]Ordered By: Antolin Abarca on 05-10-2022 Lymphocytes (Bld) [#/Vol] 2.3 10*3/uL 1.00-4.8 [facility] Lymphocytes/100 WBC Auto (Bl d)Ordered By: Antolin Abarca on 05-10-2022 Lymphocytes/100 WBC (Bld) 21.1 % . [facility] MCH Auto (RBC) [Entitic mass ]Ordered By: Antolin Abarca on 05-10-2022 MCH (RBC) [Entitic mass] 29.1 pg 24.7-34.3 [facility] MCHC Auto (RBC) [Mass/Vol]Or dered By: Antolin Abarca on 05-10-2022 MCHC (RBC) [Mass/Vol] 32.9 g/dL 32.0-35.0 [facility] MCV Auto (RBC) [Entitic vol] Ordered By: Antolin Abarca on 05-10-2022 MCV (RBC) [Entitic vol] 88.3 fL 80-100 [facility] Monocyte distribution width [Entitic volume] in Blood by AutomatedOrdered By: Antolin Abarca on 05-10-2022 Monocyte distribution width Auto (Bld) [Entitic vol] 18.66 % 0.00-20.00 [facility] Monocytes Auto (Bld) [#/Vol] Ordered By: Antolin Abarca on 05-10-2022 Monocytes (Bld) [#/Vol] 0.9 10*3/uL 0.0-0.8 [facility] Monocytes/100 WBC Auto (Bld) Ordered By: Antolin Abarca on 05-10-2022 Monocytes/100 WBC (Bld) 8.7 % . [facility] Neutrophils Auto (Bld) [#/Vo l]Ordered By: Antolin Abarca on 05-10-2022 Neutrophils (Bld) [#/Vol] 7.2 10*3/uL 1.8-7.7 [facility] Neutrophils/100 WBC Auto (Bl d)Ordered By: Antolin Abarca on 05-10-2022 Neutrophils/100 WBC (Bld) 67.5 % . [facility] Nitrite Test strip Ql (U)Ord ered By: Antolin Abarca on 05-10-2022 Nitrite Ql (U) Negative Negative [facility] No Panel InformationOrdered By: Antolin Abarca on 05-10-2022 Pharmacy Creatinine Clearance (Chem 102.62 [facility] Nucleated erythrocytes [Pres ence] in Blood by Automated countOrdered By: Antolin Abarca on 05-10-2022 Nucleated RBC Auto Ql (Bld) 0.0 /100{WBC} 0-0.5 [facility] Opiates [Presence] in Urine by Screen methodOrdered By: Antolin Abarca on 05-10-2022 Opiates Screen Ql (U) Negative Negative [facility]ir [facility] Phencyclidine Screen Ql (U)O rdered By: Antolin Abarca on 05-10-2022 Phencyclidine Ql (U) Negative Negative [facility] Platelet mean volume Auto (B ld) [Entitic vol]Ordered By: Antolin Abarca on 05-10-2022 Platelet mean volume (Bld) [Entitic vol] 6.8 fL 6.3-10.7 [facility] Platelets Auto (Bld) [#/Vol] Ordered By: Antolin Abarca on 05-10-2022 Platelets (Bld) [#/Vol] 267 10*3/uL 150-450 [facility] Potassium [Moles/volume] in Serum or PlasmaOrdered By: Antolin Abarca on 05-10-2022 Potassium [Moles/Vol] 4.7 mmol/L 3.5-5.1 [facility] Protein Auto test strip (U) [Mass/Vol]Ordered By: Antolin Abarca on 05-10-2022 Protein (U) [Mass/Vol] 30 mg/dL Negative [facility] Protein [Mass/volume] in Ser um or PlasmaOrdered By: Antolin Abarca on 05-10-2022 Protein [Mass/Vol] 6.9 g/dL 6.4-8.9 [facility] RBC Auto (Bld) [#/Vol]Ordere d By: Antolin Abarca on 05-10-2022 RBC (Bld) [#/Vol] 4.86 10*6/uL 3.60-5.00 [facility] Serum or plasma albumin/glob ulin mass ratioOrdered By: Antolin Abarca on 05-10-2022 Albumin/Globulin [Mass ratio] 1.4 {ratio} [facility] Serum or plasma anion gap de terminationOrdered By: Antolin Abarca on 05-10-2022 Anion gap [Moles/Vol] 9.6 mmol/L 6.0-15.0 [facility] Sodium [Moles/volume] in Ser um or PlasmaOrdered By: Antolin Abarca on 05-10-2022 Sodium [Moles/Vol] 136 mmol/L 136-145 [facility] Specific gravity Auto test s trip (U) [Rel density]Ordered By: Antolin Abarca on 05-10-2022 Specific gravity (U) [Rel density] 1.028 1.001-1.030 [facility] Squamous epithelial cells de tection in urine sediment by light microscopyOrdered By: Antolin Abarca on 05-10-2022 Epithelial cells.squamous LM Ql (Urine sed) 3-4 [HPF] 0-2 [facility] Urea nitrogen [Mass/volume] in Serum or PlasmaOrdered By: Antolin Abarca on 05-10-2022 Urea nitrogen [Mass/Vol] 11 mg/dL 7-25 [facility] Urine bacteria detection by automated methodOrdered By: Antolin Abarca on 05-10-2022 Bacteria Auto Ql (U) 1+ None Seen [facility] Urine clarity by refractomet ry automatedOrdered By: Antolin Abarca on 05-10-2022 Clarity Refractometry automated (U) Cloudy Clear [facility] Urine culture routineOrdered By: Antolin Abarca on 05-10-2022 Bacteria identified Cx Nom (U) 2 Days [facility] Urine glucose measurement by automated test strip (mass/volume)Ordered By: Antolin Abarca on 05-10-2022 Glucose Auto test strip (U) [Mass/Vol] Normal mg/dL Normal [facility] Urine hemoglobin detection b y automated test stripOrdered By: Antolin Abarca on 05-10-2022 Hemoglobin Auto test strip Ql (U) 2+ Negative [facility] Urine leukocyte esterase det ection by automated test stripOrdered By: Antolin Abarca on 05-10-2022 Leukocyte esterase Auto test strip Ql (U) 3+ Negative [facility] Urobilinogen Auto test strip (U) [Mass/Vol]Ordered By: Antolin Abarca on 05-10-2022 Urobilinogen (U) [Mass/Vol] Normal mg/dL Normal [facility] WBC Auto (Bld) [#/Vol]Ordere d By: Antolin Abarca on 05-10-2022 WBC (Bld) [#/Vol] 10.7 10*3/uL 3.8-11.6 [facility] pH Auto test strip (U)Ordere d By: Antolin Abarca on 05-10-2022 pH (U) 6.0 [pH] 5.0-9.0 [facility] Covid-19 PCR (CVDTBH)on SARS-CoV-2 (COVID-19) RNA PITO+probe Ql (Unsp spec) Detected Abnormal NOT DETECTED [facility] Comment on above: Result Comment: This test is not yet approved or cleared by the [place] FDA. When there are no FDA-approved or cleared tests available, and other criteria are met, FDA can make tests available under an emergency access mechanism called an Emergency Use Authorization (EUA). The EUA for this test is supported by the [place] of Health and Human Service's (HHS's) declaration [...] Performed By: #### L IPA, CMP #### [facility] [address] [place] [address] Dr. Toy Macario INFLUENZA A AND B AGon 03-13 INFLUANEGH SEE BELOW Normal [facility] Comment on above: Result Comment: Nega tive for Flu A protein angiten. Infection due to Flu A cannot be ruled out. Flu A angiten in the sample may be below the detection limit of the test. Performed By: #### C MP, LIPA #### [facility] [address] [place] [address] Dr. Toy Macario INFLUBNEGH SEE BELOW Normal [facility] Comment on above: Result Comment: Nega tive for Flu B protein antigen. Infection due to Flu B cannot be ruled out. Flu B antigen in the sample may be below the detection limit of the test. Performed By: #### C MP, LIPA #### [facility] [address] [place] [address] Dr. Toy Macario INFLUENZA A AG Negative Normal NEGATIVE SEE COMMENT [facility] Comment on above: Performed By: #### C MP, LIPA #### [facility] [address] [place] [address] Dr. Toy Macario INFLUENZA B AG Negative Normal NEGATIVE SEE COMMENT [facility] Comment on above: Performed By: #### C MP, LIPA #### [facility] [address] [place] [address] Dr. Toy Macario XR CHEST 1 Von [...] URIEL SPIVEY Date: 2022-03-13 15:46 Normal [facility] Progress Noteson 02-14-2022 Program Director Substance Abuse Authentication Interface Message Text This encounter was opened in error. Patient was a No-Show. Please disregard. Called, directly to busy signal. Dennis Sarmiento MD Normal [facility] [employer] [facility] Progress Noteson 09-02-2021 Program Director Substance Abuse Authentication Interface Message Text TUMOR BOARD NOTE [...] and Staging Information: SPECIMEN FOR SURGICAL PATH: [id number] Order: [id number] Collected 07/30/2021 15:54 ??? Status: Final result ??? Visible to patient: Yes (not seen) ??? Dx: Liver cyst; Cyst of gallbladder ??? 0 Result Notes ??? Component ??? Case Report Surgical Pathology Report ? Case: [id number] ? Authorizing Provider: ???Dennis Sarmiento MD ? Collected: ? 07/30/2021 1554 ? Ordering Location: ? [facility] Main OR ?Received: ? 08/03/2021 1030 ? [...] lymph nodes or masses grossly. ??? Sections: ???[place] ??? A1. ???Fibrotic tissue (X) ? B. [...] tumor, it is inked green. ??? Sections: ???[place] ??? B1. ???Cystic lesion, fibrotic area (X) [...] M.D ? Clinical Information ??? Resulting Agency [facility] ? Specimen Collected: 07/30/21 15:54 Last Resulted: 08/05/21 08:46 ??? Order Details ??? View Encounter ??? Lab and Collection Details ??? Routing ??? Result History ? Scans on Order [id number] ??? Document on 08/05/2021 ???8:46 AM by Marc Ricketts, Treatment Recommendations and NCCN: Plan no surgical in (more content not included)... Normal [facility] [employer] [facility] Progress Noteson 08-24-2021 Program Director Substance Abuse Authentication Interface Message Text Patient was identified by name and date of . Narda Mercedes Patient at risk for falls:No Falls Risk protocol implemented: No Normal [facility] Progress Noteson 08-16-2021 Program Director Substance Abuse Authentication Interface Message Text Phone numbers Preferred Documentation: Mode: Telephone Patient Patient Work Phone: Patient Cell Preferred phone: [phone] Consent: I confirmed patient understanding of the risks and benefits of telehealth visits and obtained consent to proceed with the telehealth visit. Location of Patient: Home of patient Surgery Follow Up Feeling well since surgery. Still hurting but she is starting to feel better. [facility] up [facility] next week for staple removal. SPECIMEN FOR SURGICAL PATH: [id number] Order: [id number] Collected 07/30/2021 15:54 ??? Status: Final result ??? Visible to patient: Yes (not seen) ??? Dx: Liver cyst; Cyst of gallbladder ??? 0 Result Notes Component Case Report Surgical Pathology Report ? Case: [id number] ? Authorizing Provider: ???Dennis Sarmiento MD ? [...] lymph nodes or masses grossly. ??? Sections: [place] [employer] [place] ??? A1. Fibrotic tissue (X) ? B. [...] tumor, it is inked green. ??? Sections: [place] ??? B1. Cystic lesion, fibrotic area (X) [...] Ivey M.D ? Clinical Information Resulting Agency [facility] Specimen Collected: 07/30/21 15:54 Last Resulted: 08/05/21 08:46 Order Details ??? View Encounter ??? Lab and Collection Details ??? Routing ??? Result History ??? Scans on Order [id number] Document on 08/05/2021 ???8:46 AM by Marc Ricketts MD ??? 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 Follow up in 6 months with a televisit in person if needed. Dennis Sarmiento MD, FA (more content not included)... Normal [facility] [employer] CYTOLOGY FLUIDOrdered By: Keriwn Ram on 08-04-2021 Appearance (U) Mucoid [facility] Work Phone: Case Report Medical Cytology Report Case: [id number] Authorizing Provider: Dennis Sarmiento MD Collected: 07/30/2021 1619 Ordering Location: [facility] Main OR Received: 08/03/2021 0855 Pathologist: Ting Ram MD Specimen: Fluid, Cyst (Cytology), liver cyst fluid [employer] Work Phone: Cell Block u3wceFXcLULaiEP0JTOf XG Ipw5utk1EkmOZldXToVUse bJSktrItxv48bYH7yJ57YF 6hZCCjDzF8UADcsyM0Pro9 KOTqFRMhkNOkT199z4cre0 pgkzYepGK7kTzgYLXmhgsr DrF2JGzzAGGzaeyoBOl5ZP sqSPPgsQQ4ZFQqbGFaQ0Jw LIUwPX6syuw4GHF5RYthFP ZhOnK9QKVgwTAjOGLyuIvz NLkwd993QOW5QdBaIJZmrk KxeIycbJ1rHqUfWVWUmK0c ZCwgZmlicmluLCBncmFudW xhciBkZWJyaXMsIHJhcmUg vITtsf9shVQgLHEfIAYtNJ BkZWdlbmVyYXRlZCBpbmZs MN7zCMOlmrrsC0KywWNxMG Bhcn0= [facility] Work Phone: Clinical Information [facility] Work Phone: Color (U) Red [facility] Work Phone: Final Diagnosis y5emnIWbAPIug2mwZOVm bG FuZzEwMzNcZnRuYmpcdWMx IHtccnRmMVxlcGljOTkwMV fnocWlBLYcrBHcY1Zthybl JSxfVB9nOV1rbRmmgNPmjU ZvLELhDxSyy3dof564dZVl l8jxRHJHaqnrrNy8yAqbG6 7td3K0MgsbX74dxUZsCDR6 JKEkCERroHLfCWWtIDA4RQ BngWAzN8ngNIEoGY3teysv NDxoQDuoTNAcnVA7YNBmfF RzC8IxWLNzEJkqRJBnjvl4 GbRcYu6ldSHqoVjcIVupTR JkXHBsYWluXGJcZnMyMCAi Lcf0hWOnFOY6u7CbGAA9iO 8nb8e0XMgsnBp4MLEfH5na dCBmbHVpZCJccGFyXGIwXH XxhlQMPLtzfFt0HWUaj6Ps qRAfiMreWM1ekB9lzEVdIL Sre4UacP50ihVsQRAbbEHy IGZldyBkZWdlbmVyYXRlZC IkOQiovnzzLU5wTHEzuqFh jSPkvq0tdMUyLHFjBOZpUP TjDZMqjuWxFRSwLGAduX8h GOBgeOppmJ5yKEUzy7sfR2 nacrQnb1D2ER4vpOLnZMQp czSqU9OyTKYaoDgzMqkxI3 qrkG16IYMcmfN4MEVim25n JzLnWSW6rMEjZRQutU66TV xwYXJccGFyXHBhciBQcmlt EML6PWOavnKgqtHhKuGWWK D0d7HsGwHyplNdHUYITXlE P9YUUJwgSXX6e0afuVPmUR LosYKcUsAcRSHbMGNvu1jx ZGVmbGFuZzEwMzNcZnRuYm bamGFbZBLpErZza8myb295 wPTwi2mfGLEnNmG2kCBnSZ XluFHlK104MLRsADicz4ny k6XqEXFcdUNfl1X5QMVNuf ttxYy5bEzmN76ft3X7Smbx F0qjGHQdPSWaS1UsQE1aNT WsCcp3BON0EKN4KSRtHYj8 BEsoUROxXGKmUec6BQp8UM tccmVkMFxncmVlbjBcYmx1 BOEzG561BHW6yYabq9svMV U2VKKjNOBvKnRjWk0xyQQa Y610ZKGmQURBCXQgsFn5EE YkeqJqoeEskFKWy053P223 t7clHAUgwyGxkNpFfhshl2 ofT542MDFkgOYpxaMeAlAm OIVzbEEhfZN0AYLyPI6qel afYWqiNMrvBZQgdxT1DTFv jYUhP1ThSENoOM5yqbkcZN P5OCjzQKMsDWA9AuUtMXPj s2Ezcit4IzVlws2zcf27PY R1w8SsgDegAQH7MVT8WuCf Au7cfZOwUPSnZV0vFeOlsA KaPPGans29jNtdNFepygAy qK0qRiPyDAIlpGAqAENfWO 3pnWIyMBRklI5xqxqyONGd YnJkcmhlYWRccGdicmRyZm 7clVfgPMQ0CFghC5yabY6c XiM0TMkbH8prmM4rVBh4UN dbpOW9DOAbfV8uLA9imqnk o9avWWjvZSpuJWSlckJ0uv Q3VIExzPEtW3EaqV6rHDVh BO9kojdpb5iaEOY2DImwHU XpHWY6DgZiTOGfh5Bekrm3 QwIzp7GtxJUdRSxzC02re4 19WWTemtTcA5krzGQrsqtv xZAijqyiCIimclB2GSBkWH BsYWluXGYxXGZzMjJcbGFu ZzEwMzNcaGljaFxmMVxkYm ZdFBUwVAnmU9muXuLhKlIk BwjsSTXzfIhytY2oOdPfPv GzRYtoAV2gKMEwE0bazPGw VCHzAFPlW5kuMnTifK8boX ffVIqhmeGeVZDsNRU2bx2b uNJaeQy1NNWkP51yFDSPtQ AyRyndBYg5YT3qHWQpaZSg PTBHXGPqwtPqLf3hXC3yIR IyLlxwYXJccGFyXHBsYWlu XGYxXGZzMThcbGFuZzEwMz NcaGljaFxmMVxkYmNoXGYx SSkdH3onXsCvL2EvESIqMK hcaSBJIGNlcnRpZnkgdGhh dCBJIHBlcnNvbmFsbHkgY2 9uZHVjdGVkIHRoZSBkaWFn rt6qnDbzLHS0CTm4AKQlu9 8ww5OefBqdETYmx8QvVOFb ZWNpbWVuKHMpIGFuZCBoYX ZlIHJlbmRlcmVkIHRoZSBm zJ1lhBLyvJZslf3mkBEqEE MjTeNhnWfuxN1kYkEeTdNr StxvUM7uMQBdP9sqfYGvYX IkNJElZ9pzPtFpiB9hvXlo DNurxbRuHJCcxdpiHTQ6zW == [facility] Work Phone: Gross Description i3bidFRhOGXkbXJ3IWXn XG Afl7mmk1PfqCXhxIJhNPqm qQSyubBnjy44zAJ0eJ11RQ 6rODCrQlJ3MQFfhoA6Wyw6 DLXmHGFclPUqV485v3avg3 vdgmHduTR0qWiqZEMekfzw NbN2XYvdRDAidcbfPYu3UP jkPWMppXX9DKKbaOZzU6Av KVEgNO3yqsn6SYB3WZyuJX VjNrX3FLNexYUoAZGsvSju LMzfr662WOQ3AcNyCWJdaq VwdXiggC3gEnTmUYQjNJVq pM7RyeNtYUAhaKLeNSSiKF AsqmLcNxHQhUUtaE8rHPOh eGVkIGFuZCBzdGFpbmVkIH qhgKuhETSjKQ1nM72eQI19 IFR1XLgnFvpyIXKdM6IecK SRaO3rfvLhfbMtGCEzZDOl v0XuYFwtuSbzZSMvs59cEJ IGEWpgCQOdy0EbVQ3arYTd aWFsIGZpeGVkIGluIDEwJS XjLGH5wnCyTYX4NvUqobKo AXFekl7mgDsuGLBjuwOgMS NmvJ51xcYvSSMfqw7= [facility] Work Phone: Volume 1 mL [facility] [...] Nom (Unsp spec) No organisms seen [facility] Basic metabolic 2000 panelon 08-03-2021 Anion gap [Moles/Vol] 14 mmol/L [facility] Calcium [Mass/Vol] 8.7 mg/dL 8.4 - 10. [...] Inclusion of Race in Diagnosing Kidney Disease. [employer] Journal of Kidney Diseases 202;79(2):268-88.e1. 2. N Engl J Med 2020 Vol. 385 Issue 19 Pages 7951-2096 Glucose [Mass/Vol] 88 mg/dL 68 - 110 [...] 8.6 g/dL Low 12.0 - 15.0 g/dL [facility] Interpretation and review of laboratory results Abnormal [facility] MCH (RBC) [Entitic mass] 29.1 pg 26.0 - 34.0 pg [facility] MCHC (RBC) [Mass/Vol] 34.7 g/dL 32.0 - 35.9 g/dL [facility] MCV (RBC) [Entitic vol] 84 fL 80 - 100 fL [facility] Platelet mean volume (Bld) [Entitic vol] 7.5 fL 7.5 - 11.2 fL [facility] Platelets (Bld) [#/Vol] 245 10*3/uL 150 - 400 K/uL [facility] RBC (Bld) [#/Vol] 2.97 10*6/uL Low [facility] WBC (Bld) [#/Vol] 6.5 10*3/uL 4.5 - 11.5 K/uL [facility] HEPATIC FUNCTION PANELon Albumin [Mass/Vol] 2.7 g/dL Low 3.4 - 5.1 g/dL [facility] ALP [Catalytic activity/Vol] 43 U/L [facility] ALT [Catalytic activity/Vol] 29 U/L [facility] AST [Catalytic activity/Vol] 26 U/L [facility] Bilirubin [Mass/Vol] 0.6 mg/dL 0.1 - 1 .5 mg/dL [facility] Bilirubin.direct [Mass/Vol] 0.20 mg/dL 0.10 - 0.30 mg/dL [facility] Interpretation and review of laboratory results Abnormal [facility] Protein [Mass/Vol] 4.5 g/dL Low 6.2 - 8.3 g/dL [facility] Major crossmatch [Interp] Compatible (E) [facility] Major crossmatch [Interp] Compatible (E) [facility] MAGNESIUMon 08-03-2021 Interpretation and review of laboratory results Normal [facility] Magnesium [Mass/Vol] 1.9 mg/dL 1.6 - 2 .8 mg/dL [facility] No Panel Informationon 08-03 [facility] Blood Product Code [id number] [facility] ealt Blood Product Description FFP [facility] Blood Product Unit Type 7300 M [facility] Comment on above: B Pos Status Released to avail [facility] Blood Product Code [id number] [facility] Blood Product Description Red Blood Cells [facility] Blood Product Unit Type [address] [facility] Comment on above: B Pos Status Released to avail [facility] Blood Product Code [id number] [facility] ealt Blood Product Description Red Blood Cells [facility] Blood Product Unit Type [facility] [facility] Comment on above: B Pos Status Transfused [facility] PLASMA STATUSon 08-03-2021 Blood product unit Nom (BPU) [ID] [id number] [facility] Blood product unit Nom (BPU) [ID] [id number] [facility] RED BLOOD CELL UNIT STATUSon 08-03-2021 Blood product unit Nom (BPU) [ID] [id number] [facility] Blood product unit Nom (BPU) [ID] [id number] [facility] Blood product unit Nom (BPU) [ID] [id number] [facility] Blood product unit Nom (BPU) [ID] [id number] [facility] Basic metabolic 2000 panelon 08-02-2021 Anion gap [Moles/Vol] 11 mmol/L [facility] Calcium [Mass/Vol] 8.4 mg/dL 8.4 - 10. 4 mg/dL [facility] Chloride [Moles/Vol] 106 mmol/L 97 - 11 1 mmol/L [facility] CO2 [Moles/Vol] 25 mmol/L 21 - 30 mmol/L [facility] Creatinine [Mass/Vol] 0.66 mg/dL 0.50 - 1.10 mg/dL [facility] GFR/1.73 sq M.predicted MDRD (S/P/Bld) [Vol rate/Area] 112 mL/min/{1.73_m2} >=60 mL/min/1.73 sqm [facility] Comment on above: 2020 CKD EPI Equatio n using Creatinine without Race Comment: Estimated glomerular filtration rate (eGFR) is calculated without a race coefficient. Values should be interpreted in the context of the patient's full clinical presentation. Reference: 1. Jordan Haley, Conner M, Gina C[place], et al.. A Unifying Approach for GFR Estimation: Recommendations of the NKF-ASN Task Force on Reassessing the Inclusion of Race in Diagnosing Kidney Disease. [employer] Journal of Kidney Diseases 2021;79(2):268-88.e1. 2. N Engl J Med 2020 Vol. 385 Issue 19 Pages 7859-3119 Glucose [Mass/Vol] 85 mg/dL 68 - 110 mg/dL [facility] Interpretation and review of laboratory results Abnormal [facility] Potassium [Moles/Vol] 4.2 mmol/L 3.3 - 5.3 mmol/L [facility] Sodium [Moles/Vol] 138 mmol/L 135 - 148 mmol/L [facility] Urea nitrogen [Mass/Vol] 4 mg/dL Low 8 - 22 mg/dL [facility] CBC panel Auto (Bld)on 08-02 Erythrocyte distribution width (RBC) [Ratio] 15.5 % High 11.5 - 14.5 % [facility] Hematocrit (Bld) [Volume fraction] 24.0 % Low 36.0 - 46.0 % [facility] Hemoglobin (Bld) [Mass/Vol] 8.0 g/dL Low 12.0 - 15.0 g/dL [facility] Interpretation and review of laboratory results Abnormal [facility] MCH (RBC) [Entitic mass] 27.8 pg 26.0 - 34.0 pg [facility] MCHC (RBC) [Mass/Vol] 33.3 g/dL 32.0 - 35.9 g/dL [facility] MCV (RBC) [Entitic vol] 84 fL 80 - 100 fL [facility] Platelet mean volume (Bld) [Entitic vol] 7.4 fL Low 7.5 - 11.2 fL [facility] Platelets (Bld) [#/Vol] 186 10*3/uL 150 - 400 K/uL [facility] RBC (Bld) [#/Vol] 2.87 10*6/uL Low [facility] WBC (Bld) [#/Vol] 7.8 10*3/uL 4.5 - 11.5 K/uL [facility] CT ABDOMEN/PELVIS W/ CONTRAS TOrdered By: Mag Ordoñez on 08-02-2021 CT DLP 902.8 (mGy.cm) [facility] Work Phone: CT Series Abdomen [facility] Work Phone: CTDI VOL 16.5 (mGy) [facility] Work Phone: PHANTOM TYPE IEC Body Dosimetry Phantom [facility] Work Phone: [facility] Work Phone: CT ABDOMEN/PELVIS W/ CONTRAS Ton [...] contrast to assess anatomy Additional history per [facility] surgery note 07/30/2021: Status post laparoscopy with [...] contrast to assess anatomy Additional history per [facility] surgery note 07/30/2021: Status post laparoscopy with [...] 08-01-2021 Anion gap [Moles/Vol] 11 mmol/L [facility] Calcium [Mass/Vol] 8.1 mg/dL Low 8.4 - [...] Inclusion of Race in Diagnosing Kidney Disease. [employer] Journal of Kidney Diseases 202;79(2):268-88.e1. 2. N Engl J Med 1 Vol. 385 Issue 19 Pages 9073-2245 Glucose [Mass/Vol] 101 mg/dL 68 - 110 [...] [#/Vol] 163 10*3/uL 150 - 400 K/uL [facility] RBC (Bld) [#/Vol] 2.66 10*6/uL Low [facility] WBC (Bld) [#/Vol] 7.6 10*3/uL 4.5 - 11.5 K/uL [facility]BD[facility]EN/PELVIS W/ CONTRAS Ton 08-01-2021 Radiology Study observation (narrative) [facility] HEPATIC FUNCTION PANELon Albumin [Mass/Vol] 2.7 g/dL Low 3.4 - 5.1 g/dL [facility] ALP [Catalytic activity/Vol] 32 U/L Low [facility] ALT [Catalytic activity/Vol] 40 U/L [facility] AST [Catalytic activity/Vol] 53 U/L [facility] Bilirubin [Mass/Vol] 1.0 mg/dL 0.1 - 1 .5 mg/dL [facility] Bilirubin.direct [Mass/Vol] 0.20 mg/dL 0.10 - 0.30 mg/dL [facility] Interpretation and review of laboratory results Abnormal [facility] Protein [Mass/Vol] 3.7 g/dL Low 6.2 - 8.3 g/dL [facility] MAGNESIUMon 08-01-2021 Interpretation and review of laboratory results Normal [facility] Magnesium [Mass/Vol] 1.9 mg/dL 1.6 - 2 .8 mg/dL [facility] No Panel Informationon 08-01 [facility] PARTIAL THROMBOPLASTIN TIMEo n 08-01-2021 aPTT Coag (Bld) [Time] 29 s [facility] Interpretation and review of laboratory results [facility] PROT[facility]OMBIN TIME AND INRon 0 08-01-2021 INR Coag (PPP) [Relative time] 1.13 {INR} High [facility] Interpretation and review of laboratory results Abnormal [facility] PT Coag (PPP) [Time] 12.8 s [facility] BLOOD GAS, ARTERIALOrdered B y: Feliciano Cutler on 07-31-2021 Base excess Calc (Bld) [Moles/Vol] -3.1000 mmol/L Low -2.0 - 2.0 mmol/L [facility] CO2 (Bld) [Partial pressure] 36.3 mm[Hg] [facility] Oxygen (Bld) [Partial pressure] 97 mm[Hg] [facility] pH (Bld) 7.382 [pH] [facility] Basic metabolic 2000 panelon 07-31-2021 Anion gap [Moles/Vol] 12 mmol/L [facility] Calcium [Mass/Vol] 8.9 mg/dL 8.4 - 10. [...] Inclusion of Race in Diagnosing Kidney Disease. [employer] Journal of Kidney Diseases 202;79(2):268-88.e1. 2. N Engl J Med 2020 Vol. 385 Issue 19 Pages 4211-0565 Glucose [Mass/Vol] 129 mg/dL High 68 - 110 mg/dL [facility] Interpretation and review of laboratory results Abnormal [facility] Potassium [Moles/Vol] 4.6 mmol/L 3.3 - 5.3 mmol/L [facility] Sodium [Moles/Vol] 135 mmol/L 135 - 148 mmol/L [facility] Urea nitrogen [Mass/Vol] 10 mg/dL 8 - 22 mg/dL [facility] CALCIUM, IONIZEDon Calcium.ionized (Bld) [Moles/Vol] 1.21 mmol/L 1.10 - 1.40 mmol/L [facility] CBC panel Auto (Bld)on 07-31 Erythrocyte distribution width (RBC) [Ratio] 15.1 % High 11.5 - 14.5 % [facility] Hematocrit (Bld) [Volume fraction] 28.7 % Low 36.0 - 46.0 % [facility] Hemoglobin (Bld) [Mass/Vol] 9.9 g/dL Low 12.0 - 15.0 g/dL [facility] Interpretation and review of laboratory results Abnormal [facility] MCH (RBC) [Entitic mass] 28.8 pg 26.0 - 34.0 pg [facility] MCHC (RBC) [Mass/Vol] 34.6 g/dL 32.0 - 35.9 g/dL [facility] MCV (RBC) [Entitic vol] 83 fL 80 - 100 fL [facility] Platelet mean volume (Bld) [Entitic vol] 7.3 fL Low 7.5 - 11.2 fL [facility] Platelets (Bld) [#/Vol] 207 10*3/uL 150 - 400 K/uL [facility] RBC (Bld) [#/Vol] 3.45 10*6/uL Low [facility] WBC (Bld) [#/Vol] 9.5 10*3/uL 4.5 - 11.5 K/uL [facility] CO-OXIMETERon 07-31-2021 Carboxyhemoglobin (BldA) [Mass fraction] <0.7 <3.0 % [facility] Hematocrit (BldA) [Volume fraction] 30.6 % Low 36.0 - 46.0 % [facility] Hemoglobin (Bld) [Mass/Vol] 9.9 g/dL Low 12.0 - 16.0 g/dL [facility] Interpretation and review of laboratory results Abnormal [facility] Methemoglobin (BldA) [Mass fraction] 1.5 % <3.0 [facility] Oxyhemoglobin (BldA) [Mass fraction] 95.9 % 95.0 - 100.0 % [facility] ELECTROLYTESon 07-31-2021 Chloride [Moles/Vol] 107 mmol/L 97 - 11 1 mmol/L [facility] Potassium [Moles/Vol] 4.1 mmol/L 3.3 - 5.3 mmol/L [facility] Sodium [Moles/Vol] 138 mmol/L 135 - 148 mmol/L [facility] GLUCOSE, WHOLE BLOODon 07-31 Glucose [Mass/Vol] 147 mg/dL High 68 - 98 mg/dL [facility] HEPATIC FUNCTION PANELon Albumin [Mass/Vol] 3.7 g/dL [...] 1.9 mmol/L 0.5 - 2. 0 mmol/L [facility] - Chemistry and C hemistry - challengeOrdered By: Feliciano Cutler on 07-31-2021 HCO3 (Bld) [Moles/Vol] 21 mmol/L Low 22 - 28 mmol/L [facility] MAGNESIUMon 07-31-2021 Magnesium [Mass/Vol] 1.5 mg/dL Low 1.6 - 2 .8 mg/dL [facility] No Panel Informationon 07-31 Interpretation and review of laboratory results Abnormal [facility] Interpretation and review of laboratory results Normal [facility] Interpretation and review of laboratory results Abnormal [facility] BLOOD GAS, ARTERIALon 2021 Base excess Calc [...] [facility] BLOOD GAS, ARTERIALOrdered B y: Melissa Red on 07-30-2021 Base excess Calc (Bld) [Moles/Vol] -3.9000 mmol/L Low -2.0 - 2.0 mmol/L [facility] CO2 (Bld) [Partial pressure] 43.0 mm[Hg] [facility] Oxygen (Bld) [Partial pressure] 175 mm[Hg] High [facility] pH (Bld) 7.320 [pH] Low [facility] CALCIUM, IONIZEDon 2 Calcium.ionized (Bld) [Moles/Vol] 1.15 mmol/L 1.10 - [...] Order Item Product status info to follow [facility] GLUCOSE, WHOLE BLOODon 07-30 Glucose [Mass/Vol] 170 mg/dL High 68 - 98 mg/dL [facility] Glucose [Mass/Vol] 187 mg/dL High 68 - 98 mg/dL [facility] Glucose [Mass/Vol] 192 mg/dL High 68 - 98 mg/dL [facility] LACTIC ACIDon 07-30-2021 Lactate [Moles/Vol] 1.9 mmol/L 0.5 - 2. 0 mmol/L [facility] Lactate [Moles/Vol] 1.3 mmol/L 0.5 - 2. 0 mmol/L [facility] Lactate [Moles/Vol] 1.5 mmol/L 0.5 - 2. 0 mmol/L [facility] Laboratory - Blood bankon ABO and Rh group Nom (Bld) Blood group B Rh(D) positive [facility] Laboratory - Chemistry and C hemistry - challengeon 07-30-2021 HCO3 (Bld) [Moles/Vol] 19 mmol/L Low 22 - 28 mmol/L [facility] HCO3 (Bld) [Moles/Vol] 21 mmol/L Low 22 - 28 mmol/L [facility] Laboratory - Chemistry and C hemistry - challengeOrdered By: Melissa Moon on 07-30-2021 HCO3 (Bld) [Moles/Vol] 22 mmol/L 22 - 28 mmol/L [facility] No Panel Informationon 07-30 Interpretation and review of laboratory results Abnormal [facility] Interpretation and review of laboratory results Normal [facility] Interpretation and review of laboratory results Abnormal [facility] Interpretation and review of laboratory results Normal [facility] Interpretation and review of laboratory results Normal [facility] No Panel InformationOrdered By: Melissa Moon on 07-30-2021 Interpretation and review of laboratory results Abnormal [facility] RED BLOOD CELL COMPONENTon 0 07-30-2021 BB Order Item Product status info to follow [facility] BB Order Item Product status info to follow [facility] TRANSFUSE RED CELLSon 2021 [facility] TRANSFUSE RED CELLSOrdered B y: Adrian Bermudez on 07-30-2021 [facility] Work Phone: TYPE AND SCREENon 07-30-2021 Blood group antibody screen Ql Negative [facility] URINE HCG-IN OFFICEOrdered B y: Rachel Neville on 07-30-2021 HCG ( test) Ql (U) Negative Negative [facility] Interpretation and review of laboratory results Normal [facility] Negative Internal Control Negative Negative [facility] Positive Internal Control Positive Positive [facility] CBC panel Auto (Bld)on 07-15 Erythrocyte distribution width (RBC) [Ratio] 16.6 % High 11.5 - 14.5 % [facility] Hematocrit (Bld) [Volume fraction] 35.3 % Low 36.0 - 46.0 % [facility] Hemoglobin (Bld) [Mass/Vol] 11.7 g/dL Low 12.0 - 15.0 g/dL [facility] Interpretation and review of laboratory results Abnormal [facility] MCH (RBC) [Entitic mass] 28.1 pg 26.0 [...] PT Coag (PPP) [Time] 11.0 s [facility] URINE HCG-IN OFFICEOrdered B y: Leyla Reyes on 06-16-2021 HCG ( test) Ql (U) Negative Negative [facility] Interpretation and review of laboratory results Normal [facility] Negative Internal Control Negative Negative [facility] Positive Internal Control Positive Positive [facility] Covid-19 PCR ([facility])on 06-04 SARS-CoV-2 (COVID-19) RNA PITO+probe Ql (Unsp spec) Not detected Normal NOT DETECTED [facility] Comment on above: Result Comment: This test is not yet approved or cleared by the [place] FDA. When there are no FDA-approved or cleared tests available, and other criteria are met, FDA can make tests available under an emergency access mechanism called an Emergency Use Authorization (EUA). The EUA for this test is supported by the [employer] Operator of Health and Human Service's (HHS's) declaration [...] consistent with SARS-CoV-2. Performed By: #### C VDTBH #### [facility] [address] [address] [address] Toy Macario CBC AUTO DIFFon 04-22-2021 BASO # 0.1 103/ul Normal 0.0-0.1 [facility] Comment on above: Performed By: #### C BC #### [facility] [address] [address] [address] Toy Macario Basophils/100 WBC (Bld) 0.8 % Normal 0.2-2.0 [facility] Comment on above: Performed By: #### C BC #### [facility] [address] [place] [address] Dr. Toy Macario EO # 0.2 103/ul Normal 0.0-0.7 [facility] Comment on above: Performed By: #### C BC #### [facility] [address] [place] [address] Dr. Toy Macario Eosinophils/100 WBC (Bld) 2.5 % Normal 0.9-7.0 [facility] Comment on above: Performed By: #### C BC #### [facility] [address] [place] [address] Dr. Toy Macario Erythrocyte distribution width (RBC) [Ratio] 14.3 % Normal 11.0-15.0 [facility] Comment on above: Performed By: #### C BC #### [facility] [address] [place] [address] Dr. Toy Macario Hematocrit (Bld) [Volume fraction] 26.9 % Critically low 36.0-48.0 [facility] Comment on above: Performed By: #### C BC #### [facility] [address] [place] [address] Dr. Toy Macario Hemoglobin (Bld) [Mass/Vol] 7.7 g/dL Critically low 12.0-16.0 [facility] Comment on above: Performed By: #### C BC #### [facility] [address] [place] [address] Dr. Toy Macario IG # 0.04 [id number] Critically high 0.00-0.03 [facility] Comment on above: Performed By: #### C BC #### [facility] [address] [place] [address] Dr. Toy Macario IG % 0.7 % Critically high 0.0-0.5 [facility] [facility] Comment on above: Performed By: #### C BC #### [facility] [address] [place] [address] Dr. Toy Macario LYMPH # 1.2 103/ul Normal 1.2-3.8 [facility] Comment on above: Performed By: #### C BC #### [facility] [address] [place] [address] Dr. Toy Macario Lymphocytes/100 WBC (Bld) 19.2 % Critically low 20.5-60.0 [facility] Comment on above: Performed By: #### C BC #### [facility] [address] [place] [address] Dr. Toy Macario MANUAL DIFF REQ NO Normal [facility] Comment on above: Performed By: #### C BC #### [facility] [address] [place] [address] Dr. Toy Macario MCH (RBC) [Entitic mass] 27.6 pg Normal 26.7-34.0 [facility] Comment on above: Performed By: #### C BC #### [facility] [address] [place] [address] Dr. Toy Macario MCHC (RBC) [Mass/Vol] 28.6 g/dL Critically low 29.9-35.2 [facility] Comment on above: Performed By: #### C BC #### [facility] [address] [place] [address] Dr. Toy Macario MCV (RBC) [Entitic vol] 96.4 fL Normal 81.0-99.0 [facility] Comment on above: Performed By: #### C BC #### [facility] [address] [place] [address] Dr. Toy Macario MONO # 0.4 103/ul Normal 0.3-0.8 [facility] Comment on above: Performed By: #### C BC #### [facility] [address] [place] [address] Dr. Toy Macario Monocytes/100 WBC (Bld) 7.2 % Normal 1.7-12.0 [facility] Comment on above: Performed By: #### C BC #### [facility] [address] [place] [address] Dr. Toy Macario NEUT # 4.3 103/ul Normal 1.4-6.5 [facility] Comment on above: Performed By: #### C BC #### [facility] [address] [address] [address] Toy Macario Neutrophils/100 WBC (Bld) 69.6 % Normal 43.0-75.0 [facility] Comment on above: Performed By: #### C BC #### [facility] [address] [address] [address] Toy Macario Platelet mean volume (Bld) [Entitic vol] 10.0 fL Normal 9.5-13.5 [facility] Comment on above: Performed By: #### C BC #### [facility] [address] [address] [address] Toy Macario PLT 238 103/ul Normal 150-450 [facility] Comment on above: Performed By: #### C BC #### [facility] [address] [address] [address] Toy Macario RBC 2.79 106/ul Critically low 4.20-5.40 [facility] Comment on above: Performed By: #### C BC #### [facility] [address] [address] [address] Toy Macario WBC 6.1 103/ul Normal 4.0-11.0 [facility] Comment on above: Performed By: #### C BC #### [facility] [address] [address] [address] Toy Macario LIPASEon 04-22-2021 Lipase [Catalytic activity/Vol] 712.0 U/L Critically high 23.0-300.0 [facility] Comment on above: Performed By: #### L IPA, CMP #### [facility] [address] [address] [address] Toy Macario MAGNESIUMon 04-22-2021 Magnesium [Mass/Vol] 2.6 mg/dL Critically high 1.6-2.3 [facility] Comment on above: Performed By: #### L IPA, CMP #### [facility] [address] [address] [address] Toy Macario PHOSPHORUSon 04-22-2021 Phosphate [Mass/Vol] 3.8 mg/dL Normal 2.5-4.5 [facility] Comment on above: Performed By: #### L IPA, CMP #### [facility] [address] [place] [address] Dr. Toy Macario POINT OF CARE GLUCOSEon 04-06 Glucose [Mass/Vol] 114 mg/dL Critically high 74-106 [facility] Comment on above: Performed By: #### L IPA, CMP #### [facility] [address] [place] [address] Dr. Toy Macario Glucose [Mass/Vol] 123 mg/dL Critically high 74-106 [facility] Comment on above: Performed By: #### L IPA, CMP #### [facility] [address] [place] [address] Dr. Toy Macario Glucose [Mass/Vol] 131 mg/dL Critically high 74-106 [facility] Comment on above: Performed By: #### L IPA, CMP #### [facility] [address] [place] [address] Dr. Toy Macario PROF 14(COMP METB)on 022 Albumin [Mass/Vol] 1.9 g/dL Critically low 3.5-5.0 [facility] Comment on above: Performed By: #### L IPA, CMP #### [facility] [address] [place] [address] Dr. Toy Macario Albumin/Globulin [Mass ratio] 0.5 {ratio} Normal [facility] Comment on above: Performed By: #### L IPA, CMP #### [facility] [address] [place] [address] Dr. Toy Macario ALP [Catalytic activity/Vol] 60 U/L Normal 38-126 [facility] Comment on above: Performed By: #### L IPA, CMP #### [facility] [address] [place] [address] Dr. Toy Macario ALT [Catalytic activity/Vol] 14 U/L Normal 9-52 [facility] Comment on above: Performed By: #### L IPA, CMP #### [facility] [address] [address] [address] Toy Macario Anion gap [Moles/Vol] 12.7 mmol/L Normal [facility] Comment on above: Performed By: #### L IPA, CMP #### [facility] [address] [address] [address] Toy Macario AST [Catalytic activity/Vol] 13 U/L Critically low 14-36 [facility] Comment on above: Performed By: #### L IPA, CMP #### [facility] [address] [address] [address] Toy Macario Bilirubin [Mass/Vol] 0.3 mg/dL Normal 0.2-1.3 [facility] Comment on above: Performed By: #### L IPA, CMP #### [facility] [address] [place] [address] Dr. Toy Macario Calcium [Mass/Vol] 8.6 mg/dL Normal 8.4-10.2 [facility] Comment on above: Performed By: #### L IPA, CMP #### [facility] [address] [address] [address] Toy Macario Chloride [Moles/Vol] 106 mmol/L Normal 98-107 [facility] Comment on above: Performed By: #### L IPA, CMP #### [facility] [address] [address] [address] Toy Macario CO2 [Moles/Vol] 26.9 mmol/L Normal 22.0-30.[address] [facility] Comment on above: Performed By: #### L IPA, CMP #### [facility] [address] [address] [address] Toy Macario Creatinine [Mass/Vol] 0.59 mg/dL Normal 0.52-1.04 [facility] Comment on above: Performed By: #### L IPA, CMP #### [facility] [address] [address] [address] Toy Macario EGFR-AF ANDORRAN >60 Normal >=[address] [facility] Comment on above: Performed By: #### L IPA, CMP #### [facility] [address] [address] [address] Toy Macario EGFR-NON AF ANDORRAN >60 Normal >=60 [facility] Comment on above: Performed By: #### L IPA, CMP #### [facility] [address] [address] [address] Toy Macario Globulin (S) [Mass/Vol] 4.0 g/dL Normal [facility] Comment on above: Performed By: #### L IPA, CMP #### [facility] [address] [address] [address] Toy Macario Glucose [Mass/Vol] 109 mg/dL Critically high 74-106 [facility] Comment on above: Performed By: #### L IPA, CMP #### [facility] [address] [place] [address] Dr. Toy Macario Potassium [Moles/Vol] 3.6 mmol/L Normal 3.4-5.0 [facility] Comment on above: Performed By: #### L IPA, CMP #### [facility] [address] [place] [address] Dr. Toy Macario Protein [Mass/Vol] 5.9 g/dL Critically low 6.1-8.2 [facility] Comment on above: Performed By: #### L IPA, CMP #### [facility] [address] [address] [address] Toy Macario Sodium [Moles/Vol] 142 mmol/L Normal 137-145 [facility] Comment on above: Performed By: #### L IPA, CMP #### [facility] [address] [place] [address] Dr. Toy Macario Urea nitrogen [Mass/Vol] 9.0 mg/dL Normal 7.0-17.0 [facility] Comment on above: Performed By: #### L IPA, CMP #### [facility] [address] [place] [address] Dr. Toy Macario Urea nitrogen/Creatinine [Mass ratio] 15.3 mg/mg Normal [facility] Comment on above: Performed By: #### L IPA, CMP #### [facility] [address] [place] [address] Dr. Toy Macario TRIGLYCERIDEon 04-22-2021 Triglyceride [Mass/Vol] 84 mg/dL Normal <=150 [facility] Comment on above: Performed By: #### L IPA, CMP #### [facility] [address] [place] [address] Dr. Toy Macario CBC AUTO DIFFon 04-21-2021 BASO # 0.1 103/ul Normal 0.0-0.1 [facility] Comment on above: Performed By: #### C VDTBH #### [facility] [address] [place] [address] Dr. Toy Macario Basophils/100 WBC (Bld) 0.7 % Normal 0.2-2.0 [facility] Comment on above: Performed By: #### C VDTBH #### [facility] [address] [place] [address] Dr. Toy Macario EO # 0.1 103/ul Normal 0.0-0.7 [facility] Comment on above: Performed By: #### C VDTBH #### [facility] [address] [place] [address] Dr. Toy Macario Eosinophils/100 WBC (Bld) 1.5 % Normal 0.9-7.0 [facility] Comment on above: Performed By: #### C VDTBH #### [facility] [address] [place] [address] Dr. Toy Macario Erythrocyte distribution width (RBC) [Ratio] 13.8 % Normal 11.0-15.0 [facility] Comment on above: Performed By: #### C VDTBH #### [facility] [address] [place] [address] Dr. Toy Macario Hematocrit (Bld) [Volume fraction] 26.3 % Critically low 36.0-48.0 [facility] Comment on above: Performed By: #### C VDTBH #### [facility] [address] [place] [address] Dr. Toy Macario Hemoglobin (Bld) [Mass/Vol] 8.2 g/dL Critically low 12.0-16.0 [facility] Comment on above: Performed By: #### C VDTBH #### [facility] [address] [place] [address] Dr. Toy Macario IG # 0.13 10e3/ul Critically high 0.00-0.03 [facility] Comment on above: Performed By: #### C VDTBH #### [facility] [address] [address] [address] Toy Macario IG % 1.8 % Critically high 0.0-0.5 [facility] Comment on above: Performed By: #### C VDTBH #### [facility] [address] [place] [address] Dr. Toy Macario LYMPH # 1.3 103/ul Normal 1.2-3.8 [facility] Comment on above: Performed By: #### C VDTBH #### [facility] [address] [place] [address] Dr. Toy Macario Lymphocytes/100 WBC (Bld) 18.6 % Critically low 20.5-60.0 [facility] Comment on above: Performed By: #### C VDTBH #### [facility] [address] [place] [address] Dr. Toy Macario MANUAL DIFF REQ NO Normal [facility] Comment on above: Performed By: #### C VDTBH #### [facility] [address] [place] [address] Dr. Toy Macario MCH (RBC) [Entitic mass] 27.7 pg Normal 26.7-34.0 [facility] Comment on above: Performed By: #### C VDTBH #### [facility] [address] [place] [address] Dr. Toy Macario MCHC (RBC) [Mass/Vol] 31.2 g/dL Normal 29.9-35.2 [facility] Comment on above: Performed By: #### C VDTBH #### [facility] [address] [place] [address] Dr. Toy Macario MCV (RBC) [Entitic vol] 88.9 fL Normal 81.0-99.0 [facility] Comment on above: Performed By: #### C VDTBH #### [facility] [address] [place] [address] Dr. Toy Macario MONO # 0.4 103/ul Normal 0.3-0.8 [facility] Comment on above: Performed By: #### C VDTBH #### [facility] [address] [place] [address] Dr. Toy Macario Monocytes/100 WBC (Bld) 6.0 % Normal 1.7-12.0 [facility] Comment on above: Performed By: #### C VDTBH #### [facility] [address] [place] [address] Dr. Toy Macario NEUT # 5.2 103/ul Normal 1.4-6.5 [facility] Comment on above: Performed By: #### C VDTBH #### [facility] [address] [place] [address] Dr. Toy Macario Neutrophils/100 WBC (Bld) 71.4 % Normal 43.0-75.0 [facility] Comment on above: Performed By: #### C VDTBH #### [facility] [address] [place] [address] Dr. Toy Macario Platelet mean volume (Bld) [Entitic vol] 9.9 fL Normal 9.5-13.5 [facility] Comment on above: Performed By: #### C VDTBH #### [facility] [address] [place] [address] Dr. Toy Macario PLT 245 103/ul Normal 150-450 [facility] Comment on above: Performed By: #### C VDTBH #### [facility] [address] [place] [address] Dr. Toy Macario RBC 2.96 106/ul Critically low 4.20-5.40 [facility] Comment on above: Performed By: #### C VDTBH #### [facility] [address] [place] [address] Dr. Toy Macario WBC 7.2 103/ul Normal 4.0-11.0 [facility] Comment on above: Performed By: #### C VDTBH #### [facility] [address] [place] [address] Dr. Toy Macario LIPASEon 04-21-2021 Lipase [Catalytic activity/Vol] 645.0 U/L Critically high 23.0-300.0 [facility] Comment on above: Performed By: #### O DEVENDRA #### [facility] [address] [place] [address] Dr. Toy Macario MAGNESIUMon 04-21-2021 Magnesium [Mass/Vol] 2.0 mg/dL Normal 1.6-2.3 [facility] Comment on above: Performed By: #### O DEVENDRA #### [facility] [address] [place] [address] Dr. Toy Macario PHOSPHORUSon 04-21-2021 Phosphate [Mass/Vol] 3.6 mg/dL Normal 2.5-4.5 [facility] Comment on above: Performed By: #### O DEVENDRA #### [facility] [address] [place] [address] Dr. Toy Macario POTASSIUMon 04-21-2021 Potassium [Moles/Vol] 3.5 mmol/L Normal 3.4-5.0 [facility] Comment on above: Performed By: #### K #### [facility] [address] [place] [address] Dr. Toy Macario PROF 14(COMP METB)on 022 Albumin [Mass/Vol] 1.8 g/dL Critically low 3.5-5.0 [facility] Comment on above: Performed By: #### O DEVENDRA #### [facility] [address] [place] [address] Dr. Toy Macario Albumin/Globulin [Mass ratio] 0.4 {ratio} Normal [facility] Comment on above: Performed By: #### O DEVENDRA #### [facility] [address] [place] [address] Dr. Toy Macario ALP [Catalytic activity/Vol] 65 U/L Normal 38-126 [facility] Comment on above: Performed By: #### O DEVENDRA #### [facility] [address] [address] [address] Toy Macario ALT [Catalytic activity/Vol] 13 U/L Normal 9-52 [facility] Comment on above: Performed By: #### O DEVENDRA #### [facility] [address] [address] [address] Toy Macario Anion gap [Moles/Vol] 8.2 mmol/L Normal [facility] Comment on above: Performed By: #### O DEVENDRA #### [facility] [address] [address] [address] Toy Macario AST [Catalytic activity/Vol] 14 U/L Normal 14-36 [facility] Comment on above: Performed By: #### O DEVENDRA #### [facility] [address] [place] [address] Dr. Toy Macario Bilirubin [Mass/Vol] 0.3 mg/dL Normal 0.2-1.3 [facility] Comment on above: Performed By: #### O DEVENDRA #### [facility] [address] [address] [address] Toy Macario Calcium [Mass/Vol] 8.3 mg/dL Critically low 8.4-10.[address] [facility] Comment on above: Performed By: #### O DEVENDRA #### [facility] [address] [address] [address] Toy Macario Chloride [Moles/Vol] 106 mmol/L Normal 98-107 [facility] Comment on above: Performed By: #### O DEVENDRA #### [facility] [address] [address] [address] Toy Macario CO2 [Moles/Vol] 27.7 mmol/L Normal 22.0-30.0 [facility] Comment on above: Performed By: #### O DEVENDRA #### [facility] [address] [address] [address] Toy Macario Creatinine [Mass/Vol] 0.59 mg/dL Normal 0.52-1.04 [facility] Comment on above: Performed By: #### O DEVENDRA #### [facility] [address] [address] [address] Toy Macario EGFR-AF ANDORRAN >60 Normal >=60 [facility] Comment on above: Performed By: #### O DEVENDRA #### [facility] [address] [address] [address] Toy Macario EGFR-NON AF ANDORRAN >60 Normal >=60 [facility] Comment on above: Performed By: #### O DEVENDRA #### [facility] [address] [address] [address] Toy Macario Globulin (S) [Mass/Vol] 4.3 g/dL Normal [facility] Comment on above: Performed By: #### O DEVENDRA #### [facility] [address] [place] [address] Dr. Toy Macario Glucose [Mass/Vol] 117 mg/dL Critically high 74-106 [facility] Comment on above: Performed By: #### O DEVENDRA #### [facility] [address] [place] [address] Dr. Toy Macario Potassium [Moles/Vol] 2.9 mmol/L Critically low 3.4-5.0 [facility] Comment on above: Result Comment: Test Repeated. Criticall Value Verified Performed By: #### O DEVENDRA #### [facility] [address] [place] [address] Dr. Toy Macario Protein [Mass/Vol] 6.1 g/dL Normal 6.1-8.2 [facility] Comment on above: Performed By: #### O DEVENDRA #### [facility] [address] [address] [address] Toy Macario Sodium [Moles/Vol] 139 mmol/L Normal 137-145 [facility] Comment on above: Performed By: #### O DEVENDRA #### [facility] [address] [address] [address] Toy Macario Urea nitrogen [Mass/Vol] 7.0 mg/dL Normal 7.0-17.0 [facility] Comment on above: Performed By: #### O DEVENDRA #### [facility] [address] [place] [address] Dr. Toy Macario Urea nitrogen/Creatinine [Mass ratio] 11.9 mg/mg Normal [facility] Comment on above: Performed By: #### O DEVENDRA #### [facility] [address] [place] [address] Dr. Toy Macario TRIGLYCERIDEon 04-21-2021 Triglyceride [Mass/Vol] 182 mg/dL Critically high <=150 [facility] Comment on above: Performed By: #### L IPA, CMP #### [facility] [address] [place] [address] Dr. Toy Macario CBC AUTO DIFFon 04-20-2021 BASO # 0.0 103/ul Normal 0.0-0.1 [facility] Comment on above: Performed By: #### C BC #### [facility] [address] [place] [address] Dr. Toy Macario Basophils/100 WBC (Bld) 0.3 % Normal 0.2-2.0 [facility] Comment on above: Performed By: #### C BC #### [facility] [address] [place] [address] Dr. Toy Macario EO # 0.1 103/ul Normal 0.0-0.7 [facility] Comment on above: Performed By: #### C BC #### [facility] [address] [place] [address] Dr. Toy Macario Eosinophils/100 WBC (Bld) 1.2 % Normal 0.9-7.0 [facility] Comment on above: Performed By: #### C BC #### [facility] [address] [place] [address] Dr. Toy Macario Erythrocyte distribution width (RBC) [Ratio] 13.9 % Normal 11.0-15.0 [facility] Comment on above: Performed By: #### C BC #### [facility] [address] [place] [address] Dr. Toy Macario Hematocrit (Bld) [Volume fraction] 26.4 % Critically low 36.0-48.0 [facility] Comment on above: Performed By: #### C BC #### [facility] [address] [address] [address] Toy Macario Hemoglobin (Bld) [Mass/Vol] 8.3 g/dL Critically low 12.0-16.0 [facility] Comment on above: Performed By: #### C BC #### [facility] [address] [address] [address] Toy Macario IG # 0.03 10e3/ul Normal 0.00-0.03 [facility] Comment on above: Performed By: #### C BC #### [facility] [address] [place] [address] Dr. Toy Macario IG % 0.5 % Normal 0.0-0.5 [facility] Comment on above: Performed By: #### C BC #### [facility] [address] [place] [address] Dr. Toy Macario LYMPH # 1.1 103/ul Critically low 1.2-3.8 [facility] Comment on above: Performed By: #### C BC #### [facility] [address] [place] [address] Dr. Toy Macario Lymphocytes/100 WBC (Bld) 18.3 % Critically low 20.5-60.0 [facility] Comment on above: Performed By: #### C BC #### [facility] [address] [place] [address] Dr. Toy Macario MANUAL DIFF REQ NO Normal [facility] Comment on above: Performed By: #### C BC #### [facility] [address] [place] [address] Dr. Toy Macario MCH (RBC) [Entitic mass] 27.7 pg Normal 26.7-34.0 [facility] Comment on above: Performed By: #### C BC #### [facility] [address] [place] [address] Dr. Toy Macario MCHC (RBC) [Mass/Vol] 31.4 g/dL Normal 29.9-35.2 [facility] Comment on above: Performed By: #### C BC #### [facility] [address] [address] [address] Toy Macario MCV (RBC) [Entitic vol] 88.0 fL Normal 81.0-99.0 [facility] Comment on above: Performed By: #### C BC #### [facility] [address] [address] [address] Toy Macario MONO # 0.4 103/ul Normal 0.3-0.8 [facility] Comment on above: Performed By: #### C BC #### [facility] [address] [place] [address] Dr. Toy Macario Monocytes/100 WBC (Bld) 6.3 % Normal 1.7-12.0 [facility] Comment on above: Performed By: #### C BC #### [facility] [address] [place] [address] Dr. Toy Macario NEUT # 4.3 103/ul Normal 1.4-6.5 [facility] Comment on above: Performed By: #### C BC #### [facility] [address] [place] [address] Dr. Toy Macario Neutrophils/100 WBC (Bld) 73.4 % Normal 43.0-75.0 [facility] Comment on above: Performed By: #### C BC #### [facility] [address] [place] [address] Dr. Toy Macario Platelet mean volume (Bld) [Entitic vol] 9.3 fL Critically low 9.5-13.5 [facility] Comment on above: Performed By: #### C BC #### [facility] [address] [place] [address] Dr. Toy Macario PLT 242 103/ul Normal 150-450 [facility] Comment on above: Performed By: #### C BC #### [facility] [address] [place] [address] Dr. Toy Macario RBC 3.00 106/ul Critically low 4.20-5.40 [facility] Comment on above: Performed By: #### C BC #### [facility] [address] [place] [address] Dr. Toy Macario WBC 5.8 103/ul Normal 4.0-11.0 [facility] Comment on above: Performed By: #### C BC #### [facility] [address] [place] [address] Dr. Toy Macario LIPASEon 04-20-2021 Lipase [Catalytic activity/Vol] 519.0 U/L Critically high 23.0-300.0 [facility] Comment on above: Performed By: #### L IPA, CMP #### [facility] [address] [place] [address] Dr. Toy Macario POINT OF CARE GLUCOSEon 04-06 Glucose [Mass/Vol] 104 mg/dL Normal 74-106 [facility] Comment on above: Performed By: #### C VDTB #### [facility] [address] [place] [address] Dr. Toy Macario Glucose [Mass/Vol] 105 mg/dL Normal 74-106 [facility] Comment on above: Performed By: #### L IPA, CMP #### [facility] [address] [place] [address] Dr. Toy Macario Glucose [Mass/Vol] 109 mg/dL Critically high 74-106 [facility] Comment on above: Performed By: #### O DEVENDRA #### [facility] [address] [place] [address] Dr. Toy Macario PROF 14(COMP METB)on 022 Albumin [Mass/Vol] 1.8 g/dL Critically low 3.5-5.0 [facility] Comment on above: Performed By: #### L IPA, CMP #### [facility] [address] [place] [address] Dr. Toy Macario Albumin/Globulin [Mass ratio] 0.4 {ratio} Normal [facility] Comment on above: Performed By: #### L IPA, CMP #### [facility] [address] [place] [address] Dr. Toy Macario ALP [Catalytic activity/Vol] 67 U/L Normal 38-126 [facility] Comment on above: Performed By: #### L IPA, CMP #### [facility] [address] [address] [address] Toy Macario ALT [Catalytic activity/Vol] 17 U/L Normal 9-52 [facility] Comment on above: Performed By: #### L IPA, CMP #### [facility] [address] [address] [address] Toy Macario Anion gap [Moles/Vol] 8.9 mmol/L Normal [facility] Comment on above: Performed By: #### L IPA, CMP #### [facility] [address] [address] [address] Toy Macario AST [Catalytic activity/Vol] 15 U/L Normal 14-36 [facility] Comment on above: Performed By: #### L IPA, CMP #### [facility] [address] [address] [address] Toy Macario Bilirubin [Mass/Vol] 0.3 mg/dL Normal 0.2-1.3 [facility] Comment on above: Performed By: #### L IPA, CMP #### [facility] [address] [address] [address] Toy Macario Calcium [Mass/Vol] 8.8 mg/dL Normal 8.4-10.2 [facility] Comment on above: Performed By: #### L IPA, CMP #### [facility] [address] [address] [address] Toy Macario Chloride [Moles/Vol] 105 mmol/L Normal 98-107 [facility] Comment on above: Performed By: #### L IPA, CMP #### [facility] [address] [address] [address] Toy Macario CO2 [Moles/Vol] 27.3 mmol/L Normal 22.0-30.0 [facility] Comment on above: Performed By: #### L IPA, CMP #### [facility] [address] [address] [address] Toy Macario Creatinine [Mass/Vol] 0.56 mg/dL Normal 0.52-1.04 [facility] Comment on above: Performed By: #### L IPA, CMP #### [facility] [address] [address] [address] Toy Macario EGFR-AF ANDORRAN >60 Normal >=60 [facility] Comment on above: Performed By: #### L IPA, CMP #### [facility] [address] [address] [address] Toy Macario EGFR-NON AF ANDORRAN >60 Normal >=60 [facility] Comment on above: Performed By: #### L IPA, CMP #### [facility] [address] [address] [address] Toy Macario Globulin (S) [Mass/Vol] 4.5 g/dL Normal [facility] Comment on above: Performed By: #### L IPA, CMP #### [facility] [address] [address] [address] Toy Macario Glucose [Mass/Vol] 103 mg/dL Normal 74-106 [facility] Comment on above: Performed By: #### L IPA, CMP #### [facility] [address] [address] [address] Toy Macario Potassium [Moles/Vol] 3.2 mmol/L Critically low 3.4-5.0 [facility] Comment on above: Performed By: #### L IPA, CMP #### [facility] [address] [address] [address] oTy Macario Protein [Mass/Vol] 6.3 g/dL Normal 6.1-8.2 [facility] Comment on above: Performed By: #### L IPA, CMP #### [facility] [address] [address] [address] Toy Macario Sodium [Moles/Vol] 138 mmol/L Normal 137-145 [facility] Comment on above: Performed By: #### L IPA, CMP #### [facility] [address] [address] [address] Toy Macario Urea nitrogen [Mass/Vol] 7.0 mg/dL Normal 7.0-17.0 [facility] Comment on above: Performed By: #### L IPA, CMP #### [facility] [address] [place] [address] Dr. Toy Macario Urea nitrogen/Creatinine [Mass ratio] 12.5 mg/mg Normal [facility] Comment on above: Performed By: #### L IPA, CMP #### [facility] [address] [place] [address] Dr. Toy Macario CBC AUTO DIFFon 04-19-2021 BASO # 0.0 103/ul Normal 0.0-0.1 [facility] Comment on above: Performed By: #### C MP, LIPA #### [facility] [address] [place] [address] Dr. Toy Macario Basophils/100 WBC (Bld) 0.8 % Normal 0.2-2.0 [facility] Comment on above: Performed By: #### C MP, LIPA #### [facility] [address] [place] [address] Dr. Toy Macario EO # 0.1 103/ul Normal 0.0-0.7 [facility] Comment on above: Performed By: #### C MP, LIPA #### [facility] [address] [place] [address] Dr. Toy Macario Eosinophils/100 WBC (Bld) 1.9 % Normal 0.9-7.0 [facility] Comment on above: Performed By: #### C MP, LIPA #### [facility] [address] [place] [address] Dr. Toy Macario Erythrocyte distribution width (RBC) [Ratio] 14.0 % Normal 11.0-15.0 [facility] Comment on above: Performed By: #### C MP, LIPA #### [facility] [address] [place] [address] Dr. Toy Macario Hematocrit (Bld) [Volume fraction] 27.6 % Critically low 36.0-48.0 [facility] Comment on above: Performed By: #### C MP, LIPA #### [facility] [address] [place] [address] Dr. Toy Macario Hemoglobin (Bld) [Mass/Vol] 8.5 g/dL Critically low 12.0-16.0 [facility] Comment on above: Performed By: #### C MP, LIPA #### [facility] [address] [address] [address] Toy Macario IG # 0.03 10e3/ul Normal 0.00-0.03 [facility] Comment on above: Performed By: #### C MP, LIPA #### [facility] [address] [place] [address] Dr. Toy Macario IG % 0.6 % Critically high 0.0-0.5 [facility] Comment on above: Performed By: #### C MP, LIPA #### [facility] [address] [place] [address] Dr. Toy Macario LYMPH # 1.0 103/ul Critically low 1.2-3.8 [facility] Comment on above: Performed By: #### C MP, LIPA #### [facility] [address] [place] [address] Dr. Toy Macario Lymphocytes/100 WBC (Bld) 17.9 % Critically low 20.5-60.0 [facility] Comment on above: Performed By: #### C MP, LIPA #### [facility] [address] [place] [address] Dr. Toy Macario MANUAL DIFF REQ NO Normal [facility] Comment on above: Performed By: #### C MP, LIPA #### [facility] [address] [address] [address] Toy Macario MCH (RBC) [Entitic mass] 27.4 pg Normal 26.7-34.0 [facility] Comment on above: Performed By: #### C MP, LIPA #### [facility] [address] [place] [address] Dr. Toy Macario MCHC (RBC) [Mass/Vol] 30.8 g/dL Normal 29.9-35.2 [facility] Comment on above: Performed By: #### C MP, LIPA #### [facility] [address] [address] [address] Toy Macario MCV (RBC) [Entitic vol] 89.0 fL Normal 81.0-99.0 [facility] Comment on above: Performed By: #### C MP, LIPA #### [facility] [address] [place] [address] Dr. Toy Macario MONO # 0.4 103/ul Normal 0.3-0.8 [facility] Comment on above: Performed By: #### C MP, LIPA #### [facility] [address] [place] [address] Dr. Toy Macario Monocytes/100 WBC (Bld) 7.7 % Normal 1.7-12.0 [facility] Comment on above: Performed By: #### C MP, LIPA #### [facility] [address] [place] [address] Dr. Toy Macario NEUT # 3.8 103/ul Normal 1.4-6.5 [facility] Comment on above: Performed By: #### C MP, LIPA #### [facility] [address] [place] [address] Dr. Toy Macario Neutrophils/100 WBC (Bld) 71.1 % Normal 43.0-75.0 [facility] Comment on above: Performed By: #### C MP, LIPA #### [facility] [address] [place] [address] Dr. Toy Macario Platelet mean volume (Bld) [Entitic vol] 9.4 fL Critically low 9.5-13.5 [facility] Comment on above: Performed By: #### C MP, LIPA #### [facility] [address] [place] [address] Dr. Toy Macario PLT 259 103/ul Normal 150-450 [facility] Comment on above: Performed By: #### C MP, LIPA #### [facility] [address] [place] [address] Dr. Toy Macario RBC 3.10 106/ul Critically low 4.20-5.40 [facility] Comment on above: Performed By: #### C MP, LIPA #### [facility] [address] [place] [address] Dr. Toy Macario WBC 5.3 103/ul Normal 4.0-11.0 [facility] Comment on above: Performed By: #### C MP, LIPA #### [facility] [address] [place] [address] Dr. Toy Macario LIPASEon 04-19-2021 Lipase [Catalytic activity/Vol] 447.0 U/L Critically high 23.0-300.0 [facility] Comment on above: Performed By: #### C MP, LIPA #### [facility] [address] [place] [address] Dr. Toy Macario POINT OF CARE GLUCOSEon 04-06 Glucose [Mass/Vol] 107 mg/dL Critically high 74-106 [facility] Comment on above: Performed By: #### L IPA, CMP #### [facility] [address] [place] [address] Dr. Toy Macario PROF 14(COMP METB)on 022 Albumin [Mass/Vol] 1.8 g/dL Critically low 3.5-5.0 [facility] Comment on above: Performed By: #### C MP, LIPA #### [facility] [address] [place] [address] Dr. Toy Macario Albumin/Globulin [Mass ratio] 0.4 {ratio} Normal [facility] Comment on above: Performed By: #### C MP, LIPA #### [facility] [address] [place] [address] Dr. Toy Macario ALP [Catalytic activity/Vol] 81 U/L Normal 38-126 [facility] Comment on above: Performed By: #### C MP, LIPA #### [facility] [address] [place] [address] Dr. Toy Macario ALT [Catalytic activity/Vol] 27 U/L Normal 9-52 [facility] Comment on above: Performed By: #### C MP, LIPA #### [facility] [address] [address] [address] Toy Macario Anion gap [Moles/Vol] 9.3 mmol/L Normal [facility] Comment on above: Performed By: #### C MP, LIPA #### [facility] [address] [place] [address] Dr. Toy Macario AST [Catalytic activity/Vol] 21 U/L Normal 14-36 [facility] Comment on above: Performed By: #### C MP, LIPA #### [facility] [address] [place] [address] Dr. Toy Macario Bilirubin [Mass/Vol] 0.3 mg/dL Normal 0.2-1.3 [facility] Comment on above: Performed By: #### C MP, LIPA #### [facility] [address] [place] [address] Dr. Toy Macario Calcium [Mass/Vol] 9.0 mg/dL Normal 8.4-10.2 [facility] Comment on above: Performed By: #### C MP, LIPA #### [facility] [address] [place] [address] Dr. Toy Macario Chloride [Moles/Vol] 105 mmol/L Normal 98-107 [facility] Comment on above: Performed By: #### C MP, LIPA #### [facility] [address] [place] [address] Dr. Toy Macario CO2 [Moles/Vol] 27.9 mmol/L Normal 22.0-30.[address] [facility] Comment on above: Performed By: #### C MP, LIPA #### [facility] [address] [place] [address] Dr. Toy Macario Creatinine [Mass/Vol] 0.61 mg/dL Normal 0.52-1.04 [facility] Comment on above: Performed By: #### C MP, LIPA #### [facility] [address] [place] [address] Dr. Toy Macario EGFR-AF ANDORRAN >60 Normal >=[address] [facility] Comment on above: Performed By: #### C MP, LIPA #### [facility] [address] [address] [address] Toy Macario EGFR-NON AF ANDORRAN >60 Normal >=60 [facility] Comment on above: Performed By: #### C MP, LIPA #### [facility] [address] [place] [address] Dr. Toy Macario Globulin (S) [Mass/Vol] 4.8 g/dL Normal [facility] Comment on above: Performed By: #### C MP, LIPA #### [facility] [address] [place] [address] Dr. Toy Macario Glucose [Mass/Vol] 107 mg/dL Critically high 74-106 [facility] Comment on above: Performed By: #### C MP, LIPA #### [facility] [address] [place] [address] Dr. Toy Macario Potassium [Moles/Vol] 3.2 mmol/L Critically low 3.4-5.0 [facility] Comment on above: Performed By: #### C MP, LIPA #### [facility] [address] [place] [address] Dr. Toy Macario Protein [Mass/Vol] 6.6 g/dL Normal 6.1-8.2 [facility] Comment on above: Performed By: #### C MP, LIPA #### [facility] [address] [place] [address] Dr. Toy Macario Sodium [Moles/Vol] 139 mmol/L Normal 137-145 [facility] Comment on above: Performed By: #### C MP, LIPA #### [facility] [address] [place] [address] Dr. Toy Macario Urea nitrogen [Mass/Vol] 6.0 mg/dL Critically low 7.0-17.0 [facility] Comment on above: Performed By: #### C MP, LIPA #### [facility] [address] [place] [address] Dr. Toy Macario Urea nitrogen/Creatinine [Mass ratio] 9.8 mg/mg Normal [facility] Comment on above: Performed By: #### C MP, LIPA #### [facility] [address] [place] [address] Dr. Toy Macario CBC AUTO DIFFon 04-18-2021 BASO # 0.0 103/ul Normal 0.0-0.1 [facility] Comment on above: Performed By: #### L IPA, CMP #### [facility] [address] [place] [address] Dr. Toy Macario Basophils/100 WBC (Bld) 0.6 % Normal 0.2-2.0 [facility] Comment on above: Performed By: #### L IPA, CMP #### [facility] [address] [place] [address] Dr. Toy Macario EO # 0.1 103/ul Normal 0.0-0.7 [facility] Comment on above: Performed By: #### L IPA, CMP #### [facility] [address] [place] [address] Dr. Toy Macario Eosinophils/100 WBC (Bld) 1.8 % Normal 0.9-7.0 [facility] Comment on above: Performed By: #### L IPA, CMP #### [facility] [address] [place] [address] Dr. Toy Macario Erythrocyte distribution width (RBC) [Ratio] 14.0 % Normal 11.0-15.0 [facility] Comment on above: Performed By: #### L IPA, CMP #### [facility] [address] [place] [address] Dr. Toy Macario Hematocrit (Bld) [Volume fraction] 27.9 % Critically low 36.0-48.0 [facility] Comment on above: Performed By: #### L IPA, CMP #### [facility] [address] [place] [address] Dr. Toy Macario Hemoglobin (Bld) [Mass/Vol] 8.5 g/dL Critically low 12.0-16.0 [facility] Comment on above: Performed By: #### L IPA, CMP #### [facility] [address] [place] [address] Dr. Toy Macario IG # 0.03 10e3/ul Normal 0.00-0.03 [facility] Comment on above: Performed By: #### L IPA, CMP #### [facility] [address] [place] [address] Dr. Toy Macario IG % 0.4 % Normal 0.0-0.5 [facility] Comment on above: Performed By: #### L IPA, CMP #### [facility] [address] [place] [address] Dr. Toy Macario LYMPH # 1.0 103/ul Critically low 1.2-3.8 [facility] Comment on above: Performed By: #### L IPA, CMP #### [facility] [address] [place] [address] Dr. Toy Macario Lymphocytes/100 WBC (Bld) 14.3 % Critically low 20.5-60.0 [facility] [facility] Comment on above: Performed By: #### L IPA, CMP #### [facility] [address] [place] [address] Dr. Toy Macario MANUAL DIFF REQ NO Normal [facility] Comment on above: Performed By: #### L IPA, CMP #### [facility] [address] [place] [address] Dr. Toy Macario MCH (RBC) [Entitic mass] 27.5 pg Normal 26.7-34.0 [facility] Comment on above: Performed By: #### L IPA, CMP #### [facility] [address] [place] [address] Dr. Toy Macario MCHC (RBC) [Mass/Vol] 30.5 g/dL Normal 29.9-35.2 [facility] Comment on above: Performed By: #### L IPA, CMP #### [facility] [address] [place] [address] Dr. Toy Macario MCV (RBC) [Entitic vol] 90.3 fL Normal 81.0-99.0 [facility] Comment on above: Performed By: #### L IPA, CMP #### [facility] [address] [place] [address] Dr. Toy Macario MONO # 0.5 103/ul Normal 0.3-0.8 [facility] Comment on above: Performed By: #### L IPA, CMP #### [facility] [address] [place] [address] Dr. Toy Macario Monocytes/100 WBC (Bld) 6.8 % Normal 1.7-12.0 [facility] Comment on above: Performed By: #### L IPA, CMP #### [facility] [address] [place] [address] Dr. Toy Macario NEUT # 5.4 103/ul Normal 1.4-6.5 [facility] Comment on above: Performed By: #### L IPA, CMP #### [facility] [address] [place] [address] Dr. Toy Macario Neutrophils/100 WBC (Bld) 76.1 % Critically high 43.0-75.0 [facility] Comment on above: Performed By: #### L IPA, CMP #### [facility] [address] [place] [address] Dr. Toy Macario Platelet mean volume (Bld) [Entitic vol] 9.6 fL Normal 9.5-13.5 [facility] Comment on above: Performed By: #### L IPA, CMP #### [facility] [address] [place] [address] Dr. Toy Macario PLT 253 103/ul Normal 150-450 [facility] Comment on above: Performed By: #### L IPA, CMP #### [facility] [address] [place] [address] Dr. Toy Macario RBC 3.09 106/ul Critically low 4.20-5.40 [facility] Comment on above: Performed By: #### L IPA, CMP #### [facility] [address] [place] [address] Dr. Toy Macario WBC 7.1 103/ul Normal 4.0-11.0 [facility] Comment on above: Performed By: #### L IPA, CMP #### [facility] [address] [place] [address] ABD/PELV W CONon 04-18-[address] ABD/PELV W CON EXAMINATION: CT ABD/PELV [...] by: URIEL GUILLEN Date: 2021-04-18 12:55 Normal [facility] LIPASEon 04-18-2021 Lipase [Catalytic activity/Vol] 330.0 U/L Critically high 23.0-300.0 [facility] Comment on above: Performed By: #### C MP, LIPA #### [facility] [address] [place] [address] Dr. Toy Macario OCC BLD IMMUNOASSAYon 2021 OCCULT BLOOD Negative Normal NEGATIVE [facility] Comment on above: Performed By: #### O DEVENDRA #### [facility] [address] [place] [address] Dr. Toy Macario POINT OF CARE GLUCOSEon 04-06 Glucose [Mass/Vol] 110 mg/dL Critically high 74-106 [facility] Comment on above: Performed By: #### C BC #### [facility] [address] [place] [address] Dr. Toy Macario Glucose [Mass/Vol] 103 mg/dL Normal 74-106 [facility] Comment on above: Performed By: #### C MP, LIPA #### [facility] [address] [place] [address] Dr. Toy Macario Glucose [Mass/Vol] 112 mg/dL Critically high 74-106 [facility] Comment on above: Performed By: #### L IPA, CMP #### [facility] [address] [place] [address] Dr. Toy Macario PROF 14(COMP METB)on 022 Albumin [Mass/Vol] 1.7 g/dL Critically low 3.5-5.0 [facility] Comment on above: Performed By: #### C MP, LIPA #### [facility] [address] [place] [address] Dr. Toy Macario Albumin/Globulin [Mass ratio] 0.4 {ratio} Normal [facility] Comment on above: Performed By: #### C MP, LIPA #### [facility] [address] [place] [address] Dr. Toy Macario ALP [Catalytic activity/Vol] 65 U/L Normal 38-126 [facility] Comment on above: Performed By: #### C MP, LIPA #### [facility] [address] [address] [address] Toy Macario ALT [Catalytic activity/Vol] 15 U/L Normal 9-52 [facility] Comment on above: Performed By: #### C MP, LIPA #### [facility] [address] [address] [address] Toy Macario Anion gap [Moles/Vol] 11.4 mmol/L Normal [facility] Comment on above: Performed By: #### C MP, LIPA #### [facility] [address] [address] [address] Toy Macario AST [Catalytic activity/Vol] 11 U/L Critically low 14-36 [facility] Comment on above: Performed By: #### C MP, LIPA #### [facility] [address] [place] [address] Dr. Toy Macario Bilirubin [Mass/Vol] 0.3 mg/dL Normal 0.2-1.3 [facility] Comment on above: Performed By: #### C MP, LIPA #### [facility] [address] [address] [address] Toy Macario Calcium [Mass/Vol] 8.7 mg/dL Normal 8.4-10.2 [facility] Comment on above: Performed By: #### C MP, LIPA #### [facility] [address] [place] [address] Dr. Toy Macario Chloride [Moles/Vol] 106 mmol/L Normal 98-107 [facility] Comment on above: Performed By: #### C MP, LIPA #### [facility] [address] [address] [address] Toy Macario CO2 [Moles/Vol] 27.1 mmol/L Normal 22.0-30.0 [facility] Comment on above: Performed By: #### C MP, LIPA #### [facility] [address] [address] [address] Toy Macario Creatinine [Mass/Vol] 0.60 mg/dL Normal 0.52-1.04 [facility] Comment on above: Performed By: #### C MP, LIPA #### [facility] [address] [address] [address] Toy Macario EGFR-AF ANDORRAN >60 Normal >=60 [facility] Comment on above: Performed By: #### C MP, LIPA #### [facility] [address] [address] [address] Toy Macario EGFR-NON AF ANDORRAN >60 Normal >=60 [facility] Comment on above: Performed By: #### C MP, LIPA #### [facility] [address] [address] [address] Toy Macario Globulin (S) [Mass/Vol] 4.6 g/dL Normal [facility] Comment on above: Performed By: #### C MP, LIPA #### [facility] [address] [address] [address] Toy Macario Glucose [Mass/Vol] 110 mg/dL Critically high 74-106 [facility] Comment on above: Performed By: #### C MP, LIPA #### [facility] [address] [address] [address] Toy Macario Potassium [Moles/Vol] 3.5 mmol/L Normal 3.4-5.0 [facility] Comment on above: Performed By: #### C MP, LIPA #### [facility] [address] [address] [address] Toy Macario Protein [Mass/Vol] 6.3 g/dL Normal 6.1-8.2 [facility] Comment on above: Performed By: #### C MP, LIPA #### [facility] [address] [address] [address] Toy Macario Sodium [Moles/Vol] 141 mmol/L Normal 137-145 [facility] Comment on above: Performed By: #### C MP, LIPA #### [facility] [address] [address] [address] Toy Macario Urea nitrogen [Mass/Vol] 10.0 mg/dL Normal 7.0-17.0 [facility] Comment on above: Performed By: #### C MP, LIPA #### [facility] [address] [place] [address] Dr. Toy Macario Urea nitrogen/Creatinine [Mass ratio] 16.7 mg/mg Normal [facility] Comment on above: Performed By: #### C MP, LIPA #### [facility] [address] [place] [address] Dr. Toy Macario CBC AUTO DIFFon 04-17-2021 BASO # 0.1 103/ul Normal 0.0-0.1 [facility] Comment on above: Performed By: #### C MP, LIPA #### [facility] [address] [place] [address] Dr. Toy Macario Basophils/100 WBC (Bld) 0.6 % Normal 0.2-2.0 [facility] Comment on above: Performed By: #### C MP, LIPA #### [facility] [address] [place] [address] Dr. Toy Macario EO # 0.1 103/ul Normal 0.0-0.7 [facility] Comment on above: Performed By: #### C MP, LIPA #### [facility] [address] [place] [address] Dr. Toy Macario Eosinophils/100 WBC (Bld) 1.6 % Normal 0.9-7.0 [facility] Comment on above: Performed By: #### C MP, LIPA #### [facility] [address] [place] [address] Dr. Toy Macario Erythrocyte distribution width (RBC) [Ratio] 14.4 % Normal 11.0-15.0 [facility] Comment on above: Performed By: #### C MP, LIPA #### [facility] [address] [place] [address] Dr. Toy Macario Hematocrit (Bld) [Volume fraction] 28.5 % Critically low 36.0-48.0 [facility] Comment on above: Performed By: #### C MP, LIPA #### [facility] [address] [place] [address] Dr. Toy Macario Hemoglobin (Bld) [Mass/Vol] 8.7 g/dL Critically low 12.0-16.0 [facility] Comment on above: Performed By: #### C MP, LIPA #### [facility] [address] [address] [address] Toy Macario IG # 0.06 10e3/ul Critically high 0.00-0.03 [facility] Comment on above: Performed By: #### C MP, LIPA #### [facility] [address] [place] [address] Dr. Toy Macario IG % 0.7 % Critically high 0.0-0.5 [facility] Comment on above: Performed By: #### C MP, LIPA #### [facility] [address] [place] [address] Dr. Toy Macario LYMPH # 1.1 103/ul Critically low 1.2-3.8 [facility] Comment on above: Performed By: #### C MP, LIPA #### [facility] [address] [place] [address] Dr. Toy Macario Lymphocytes/100 WBC (Bld) 12.2 % Critically low 20.5-60.0 [facility] Comment on above: Performed By: #### C MP, LIPA #### [facility] [address] [place] [address] Dr. Toy Macario MANUAL DIFF REQ NO Normal [facility] Comment on above: Performed By: #### C MP, LIPA #### [facility] [address] [place] [address] Dr. Toy Macario MCH (RBC) [Entitic mass] 27.6 pg Normal 26.7-34.0 [facility] Comment on above: Performed By: #### C MP, LIPA #### [facility] [address] [place] [address] Dr. Toy Macario MCHC (RBC) [Mass/Vol] 30.5 g/dL Normal 29.9-35.2 [facility] Comment on above: Performed By: #### C MP, LIPA #### [facility] [address] [place] [address] Dr. Toy Macario MCV (RBC) [Entitic vol] 90.5 fL Normal 81.0-99.0 [facility] Comment on above: Performed By: #### C MP, LIPA #### [facility] [address] [place] [address] Dr. Toy Macario MONO # 0.6 103/ul Normal 0.3-0.8 [facility] Comment on above: Performed By: #### C MP, LIPA #### [facility] [address] [place] [address] Dr. Toy Macario Monocytes/100 WBC (Bld) 7.2 % Normal 1.7-12.0 [facility] Comment on above: Performed By: #### C MP, LIPA #### [facility] [address] [place] [address] Dr. Toy Macario NEUT # 6.7 103/ul Critically high 1.4-6.5 [facility] Comment on above: Performed By: #### C MP, LIPA #### [facility] [address] [place] [address] Dr. Toy Macario Neutrophils/100 WBC (Bld) 77.7 % Critically high 43.0-75.0 [facility] Comment on above: Performed By: #### C MP, LIPA #### [facility] [address] [place] [address] Dr. Toy Macario Platelet mean volume (Bld) [Entitic vol] 9.4 fL Critically low 9.5-13.5 [facility] Comment on above: Performed By: #### C MP, LIPA #### [facility] [address] [place] [address] Dr. Toy Macario PLT 272 103/ul Normal 150-450 [facility] Comment on above: Performed By: #### C MP, LIPA #### [facility] [address] [place] [address] Dr. Toy Macario RBC 3.15 106/ul Critically low 4.20-5.40 [facility] Comment on above: Performed By: #### C LESLIE LIPA #### [facility] [address] [place] [address] Dr. Toy Macario WBC 8.6 103/ul Normal 4.0-11.0 [facility] Comment on above: Performed By: #### C LESLIE, LIPA #### [facility] [address] [place] [address] Dr. Toy Macario CULTURE URINEon 04-17-2021 CULTURE [...] F Trimethoprim/Sulfameth oxazole >=320 R F Normal [facility] Comment on above: Performed By: #### C VDTB #### [facility] [address] [place] [address] Dr. Toy Macario LIPASEon 04-17-2021 Lipase [Catalytic activity/Vol] 374.0 U/L Critically high 23.0-300.0 [facility] Comment on above: Performed By: #### L STEPHON CMP #### [facility] [address] [place] [address] Dr. Toy Macario POINT OF CARE GLUCOSEon 04-06 Glucose [Mass/Vol] 108 mg/dL Critically high 74-106 [facility] Comment on above: Performed By: #### L STEPHON CMP #### [facility] [address] [place] [address] Dr. Toy Macario Glucose [Mass/Vol] 105 mg/dL Normal 74-106 [facility] Comment on above: Performed By: #### C LESLIE LIPA #### [facility] [address] [address] [address] Toy Macario Glucose [Mass/Vol] 99 mg/dL Normal 74-106 [facility] Comment on above: Performed By: #### C BC #### [facility] [address] [address] [address] Toy Macario Glucose [Mass/Vol] 96 mg/dL Normal 74-106 [facility] Comment on above: Performed By: #### L IPA, CMP #### [facility] [address] [address] [address] Toy Macario PROF 14(COMP METB)on 022 Albumin [Mass/Vol] 1.9 g/dL Critically low 3.5-5.0 [facility] Comment on above: Performed By: #### L IPA, CMP #### [facility] [address] [place] [address] Dr. Toy Macario Albumin/Globulin [Mass ratio] 0.4 {ratio} Normal [facility] Comment on above: Performed By: #### L IPA, CMP #### [facility] [address] [place] [address] Dr. Toy Macario ALP [Catalytic activity/Vol] 68 U/L Normal 38-126 [facility] Comment on above: Performed By: #### L IPA, CMP #### [facility] [address] [place] [address] Dr. Toy Macario ALT [Catalytic activity/Vol] 21 U/L Normal 9-52 [facility] Comment on above: Performed By: #### L IPA, CMP #### [facility] [address] [place] [address] Dr. Toy Macario Anion gap [Moles/Vol] 14.2 mmol/L Normal [facility] Comment on above: Performed By: #### L IPA, CMP #### [facility] [address] [place] [address] Dr. Toy Macario AST [Catalytic activity/Vol] 13 U/L Critically low 14-36 [facility] Comment on above: Performed By: #### L IPA, CMP #### [facility] [address] [address] [address] Toy Macario Bilirubin [Mass/Vol] 0.5 mg/dL Normal 0.2-1.3 [facility] Comment on above: Performed By: #### L IPA, CMP #### [facility] [address] [place] [address] Dr. Toy Macario Calcium [Mass/Vol] 8.6 mg/dL Normal 8.4-10.2 [facility] Comment on above: Performed By: #### L IPA, CMP #### [facility] [address] [place] [address] Dr. Toy Macario Chloride [Moles/Vol] 106 mmol/L Normal 98-107 [facility] Comment on above: Performed By: #### L IPA, CMP #### [facility] [address] [place] [address] Dr. Toy Macario CO2 [Moles/Vol] 26.3 mmol/L Normal 22.0-30.0 [facility] Comment on above: Performed By: #### L IPA, CMP #### [facility] [address] [place] [address] Dr. Toy Macario Creatinine [Mass/Vol] 0.78 mg/dL Normal 0.52-1.04 [facility] Comment on above: Performed By: #### L IPA, CMP #### [facility] [address] [place] [address] Dr. Toy Macario EGFR-AF ANDORRAN >60 Normal >=[address] [facility] Comment on above: Performed By: #### L IPA, CMP #### [facility] [address] [place] [address] Dr. Toy Macario EGFR-NON AF ANDORRAN >60 Normal >=60 [facility] Comment on above: Performed By: #### L IPA, CMP #### [facility] [address] [place] [address] Dr. Toy Macario Globulin (S) [Mass/Vol] 4.5 g/dL Normal [facility] Comment on above: Performed By: #### L IPA, CMP #### [facility] [address] [place], [place] [id number] Dr. Toy Macario Glucose [Mass/Vol] 89 mg/dL Normal 74-106 [facility] Comment on above: Performed By: #### L IPA, CMP #### [facility] [address] [place] [address] Dr. Toy Macario Potassium [Moles/Vol] 3.4 mmol/L Normal 3.4-5.0 [facility] Comment on above: Performed By: #### L IPA, CMP #### [facility] [address] [place] [address] Dr. Toy Macario Protein [Mass/Vol] 6.4 g/dL Normal 6.1-8.2 [facility] Comment on above: Performed By: #### L IPA, CMP #### [facility] [address] [place] [address] Dr. Toy Macario Sodium [Moles/Vol] 143 mmol/L Normal 137-145 [facility] Comment on above: Performed By: #### L IPA, CMP #### [facility] [address] [place] [address] Dr. Toy Macario Urea nitrogen [Mass/Vol] 9.0 mg/dL Normal 7.0-17.0 [facility] Comment on above: Performed By: #### L IPA, CMP #### [facility] [address] [place] [address] Dr. Toy Macario Urea nitrogen/Creatinine [Mass ratio] 11.5 mg/mg Normal [facility] Comment on above: Performed By: #### L IPA, CMP #### [facility] [address] [place] [address] Dr. Toy Macario CBC AUTO DIFFon 04-16-2021 BASO # 0.1 103/ul Normal 0.0-0.1 [facility] Comment on above: Performed By: #### C MP, LIPA #### [facility] [address] [place] [address] Dr. Toy Macario Basophils/100 WBC (Bld) 0.4 % Normal 0.2-2.0 [facility] Comment on above: Performed By: #### C MP, LIPA #### [facility] [address] [address] [address] Toy Macario EO # 0.0 103/ul Normal 0.0-0.7 [facility] Comment on above: Performed By: #### C MP, LIPA #### [facility] [address] [place] [address] Dr. Toy Macario Eosinophils/100 WBC (Bld) 0.3 % Critically low 0.9-7.0 [facility] Comment on above: Performed By: #### C MP, LIPA #### [facility] [address] [place] [address] Dr. Toy Macario Erythrocyte distribution width (RBC) [Ratio] 14.1 % Normal 11.0-15.0 [facility] Comment on above: Performed By: #### C MP, LIPA #### [facility] [address] [place] [address] Dr. Toy Macario Hematocrit (Bld) [Volume fraction] 31.9 % Critically low 36.0-48.0 [facility] Comment on above: Performed By: #### C MP, LIPA #### [facility] [address] [place] [address] Dr. Toy Macario Hemoglobin (Bld) [Mass/Vol] 9.9 g/dL Critically low 12.0-16.0 [facility] Comment on above: Performed By: #### C MP, LIPA #### [facility] [address] [place] [address] Dr. Toy Macario IG # 0.08 10e3/ul Critically high 0.00-0.03 [facility] Comment on above: Performed By: #### C MP, LIPA #### [facility] [address] [place] [address] Dr. Toy Macario IG % 0.7 % Critically high 0.0-0.5 [facility] Comment on above: Performed By: #### C MP, LIPA #### [facility] [address] [place] [address] Dr. Toy Macario LYMPH # 0.9 103/ul Critically low 1.2-3.8 [facility] Comment on above: Performed By: #### C MP, LIPA #### [facility] [address] [place] [address] Dr. Toy Macario Lymphocytes/100 WBC (Bld) 7.8 % Critically low 20.5-60.0 [facility] Comment on above: Performed By: #### C MP, LIPA #### [facility] [address] [place] [address] Dr. Toy Macario MANUAL DIFF REQ NO Normal [facility] Comment on above: Performed By: #### C MP, LIPA #### [facility] [address] [place] [address] Dr. Toy Macario MCH (RBC) [Entitic mass] 27.5 pg Normal 26.7-34.0 [facility] Comment on above: Performed By: #### C MP, LIPA #### [facility] [address] [place] [address] Dr. Toy Macario MCHC (RBC) [Mass/Vol] 31.0 g/dL Normal 29.9-35.2 [facility] Comment on above: Performed By: #### C MP, LIPA #### [facility] [address] [place] [address] Dr. Toy Macario MCV (RBC) [Entitic vol] 88.6 fL Normal 81.0-99.0 [facility] Comment on above: Performed By: #### C MP, LIPA #### [facility] [address] [place] [address] Dr. Toy Macario MONO # 0.6 103/ul Normal 0.3-0.8 [facility] Comment on above: Performed By: #### C MP, LIPA #### [facility] [address] [place] [address] Dr. Toy Macario Monocytes/100 WBC (Bld) 5.3 % Normal 1.7-12.0 [facility] Comment on above: Performed By: #### C MP, LIPA #### [facility] [address] [place] [address] Dr. Toy Macario NEUT # 10.0 103/ul Critically high 1.4-6.[address] [facility] Comment on above: Performed By: #### C MP, LIPA #### [facility] [address] [place] [address] Dr. Toy Macario Neutrophils/100 WBC (Bld) 85.5 % Critically high 43.0-75.0 [facility] Comment on above: Performed By: #### C MP, LIPA #### [facility] [address] [place] [address] Dr. Toy Macario Platelet mean volume (Bld) [Entitic vol] 9.3 fL Critically low 9.5-13.5 [facility] Comment on above: Performed By: #### C MP, LIPA #### [facility] [address] [place] [address] Dr. Toy Macario PLT 321 103/ul Normal 150-450 [facility] Comment on above: Performed By: #### C MP, LIPA #### [facility] [address] [place] [address] Dr. Toy Macario RBC 3.60 106/ul Critically low 4.20-5.40 [facility] Comment on above: Performed By: #### C MP, LIPA #### [facility] [address] [place] [address] Dr. Toy Macario WBC 11.7 103/ul Critically high 4.0-11.0 [facility] Comment on above: Performed By: #### C MP, LIPA #### [facility] [address] [place] [address] Dr. Toy Macario LIPASEon 04-16-2021 Lipase [Catalytic activity/Vol] 667.0 U/L Critically high 23.0-300.0 [facility] Comment on above: Performed By: #### O DEVENDRA #### [facility] [address] [place] [address] Dr. Toy Macario POINT OF CARE GLUCOSEon 04-06 Glucose [Mass/Vol] 89 mg/dL Normal 74-106 [facility] Comment on above: Performed By: #### O DEVENDRA #### [facility] [address] [address] [address] Toy Macario Glucose [Mass/Vol] 92 mg/dL Normal 74-106 [facility] Comment on above: Performed By: #### L IPA, CMP #### [facility] [address] [place] [address] Dr. Toy Macario Glucose [Mass/Vol] 100 mg/dL Normal 74-106 [facility] Comment on above: Performed By: #### C VDTBH #### [facility] [address] [place] [address] Dr. Toy Macario PROF 14(COMP METB)on 022 Albumin [Mass/Vol] 1.9 g/dL Critically low 3.5-5.0 [facility] Comment on above: Performed By: #### O DEVENDRA #### [facility] [address] [place] [address] Dr. Toy Macario Albumin/Globulin [Mass ratio] 0.4 {ratio} Normal [facility] Comment on above: Performed By: #### O DEVENDRA #### [facility] [address] [place] [address] Dr. Toy Macario ALP [Catalytic activity/Vol] 69 U/L Normal 38-126 [facility] Comment on above: Performed By: #### O DEVENDRA #### [facility] [address] [place] [address] Dr. Toy Macario ALT [Catalytic activity/Vol] 27 U/L Normal 9-52 [facility] Comment on above: Performed By: #### O DEVENDRA #### [facility] [address] [place] [address] Dr. Toy Macario Anion gap [Moles/Vol] 13.5 mmol/L Normal [facility] Comment on above: Performed By: #### O DEVENDRA #### [facility] [address] [place] [address] Dr. Toy Macario AST [Catalytic activity/Vol] 20 U/L Normal 14-36 [facility] Comment on above: Performed By: #### O DEVENDRA #### [facility] [address] [address] [address] Toy Macario Bilirubin [Mass/Vol] 0.6 mg/dL Normal 0.2-1.3 [facility] Comment on above: Performed By: #### O DEVENDRA #### [facility] [address] [address] [address] Toy Macario Calcium [Mass/Vol] 8.7 mg/dL Normal 8.4-10.2 [facility] Comment on above: Performed By: #### O DEVENDRA #### [facility] [address] [address] [address] Toy Macario Chloride [Moles/Vol] 106 mmol/L Normal 98-107 [facility] Comment on above: Performed By: #### O DEVENDRA #### [facility] [address] [place] [address] Dr. Toy Macario CO2 [Moles/Vol] 24.7 mmol/L Normal 22.0-30.0 [facility] Comment on above: Performed By: #### O DEVENDRA #### [facility] [address] [place] [address] Dr. Toy Macario Creatinine [Mass/Vol] 0.92 mg/dL Normal 0.52-1.04 [facility] Comment on above: Performed By: #### O DEVENDRA #### [facility] [address] [place] [address] Dr. Toy Macario EGFR-AF ANDORRAN >60 Normal >=60 [facility] Comment on above: Performed By: #### O DEVENDRA #### [facility] [address] [place] [address] Dr. Toy Macario EGFR-NON AF ANDORRAN >60 Normal >=60 [facility] Comment on above: Performed By: #### O DEVENDRA #### [facility] [address] [place] [address] Dr. Toy Macario Globulin (S) [Mass/Vol] 4.7 g/dL Normal [facility] Comment on above: Performed By: #### O DEVENDRA #### [facility] [address] [address] [address] Toy Macario Glucose [Mass/Vol] 126 mg/dL Critically high 74-106 [facility] Comment on above: Performed By: #### O DEVENDRA #### [facility] [address] [address] [address] Toy Macario Potassium [Moles/Vol] 3.2 mmol/L Critically low 3.4-5.0 [facility] Comment on above: Performed By: #### O DEVENDRA #### [facility] [address] [address] [address] Toy Macario Protein [Mass/Vol] 6.6 g/dL Normal 6.1-8.2 [facility] Comment on above: Performed By: #### O DEVENDRA #### [facility] [address] [place] [address] Dr. Toy Macario Sodium [Moles/Vol] 141 mmol/L Normal 137-145 [facility] Comment on above: Performed By: #### O DEVENDRA #### [facility] [address] [place] [address] Dr. Toy Macario Urea nitrogen [Mass/Vol] 8.0 mg/dL Normal 7.0-17.0 [facility] Comment on above: Performed By: #### O DEVENDRA #### [facility] [address] [place] [address] Dr. Toy Macario Urea nitrogen/Creatinine [Mass ratio] 8.7 mg/mg Normal [facility] Comment on above: Performed By: #### O DEVENDRA #### [facility] [address] [place] [address] Dr. Toy Macario AMYLASEon 04-15-2021 Amylase [Catalytic activity/Vol] 97 U/L Normal 31-110 [facility] Comment on above: Performed By: #### C MP, LIPA #### [facility] [address] [place] [address] Dr. Toy Macario CBC AUTO DIFFon 04-15-2021 BASO # 0.1 103/ul Normal 0.0-0.1 [facility] Comment on above: Performed By: #### C BC #### [facility] [address] [address] [address] Toy Macario Basophils/100 WBC (Bld) 0.5 % Normal 0.2-2.0 [facility] Comment on above: Performed By: #### C BC #### [facility] [address] [place] [address] Dr. Toy Macario EO # 0.0 103/ul Normal 0.0-0.7 [facility] Comment on above: Performed By: #### C BC #### [facility] [address] [place] [address] Dr. Toy Macario Eosinophils/100 WBC (Bld) 0.3 % Critically low 0.9-7.0 [facility] Comment on above: Performed By: #### C BC #### [facility] [address] [place] [address] Dr. Toy Macario Erythrocyte distribution width (RBC) [Ratio] 13.9 % Normal 11.0-15.0 [facility] Comment on above: Performed By: #### C BC #### [facility] [address] [place] [address] Dr. Toy Macario Hematocrit (Bld) [Volume fraction] 34.2 % Critically low 36.0-48.0 [facility] Comment on above: Performed By: #### C BC #### [facility] [address] [place] [address] Dr. Toy Macario Hemoglobin (Bld) [Mass/Vol] 10.8 g/dL Critically low 12.0-16.0 [facility] Comment on above: Performed By: #### C BC #### [facility] [address] [place] [address] Dr. Toy Macario IG # 0.05 10e3/ul Critically high 0.00-0.03 [facility] Comment on above: Performed By: #### C BC #### [facility] [address] [place] [address] Dr. Toy Macario IG % 0.4 % Normal 0.0-0.5 [facility] Comment on above: Performed By: #### C BC #### [facility] [address] [address] [address] Toy Macario LYMPH # 0.9 103/ul Critically low 1.2-3.8 [facility] Comment on above: Performed By: #### C BC #### [facility] [address] [place] [address] Dr. Toy Macario Lymphocytes/100 WBC (Bld) 8.4 % Critically low 20.5-60.0 [facility] Comment on above: Performed By: #### C BC #### [facility] [address] [place] [address] Dr. Toy Macario MANUAL DIFF REQ NO Normal [facility] Comment on above: Performed By: #### C BC #### [facility] [address] [place] [address] Dr. Toy Macario MCH (RBC) [Entitic mass] 28.1 pg Normal 26.7-34.0 [facility] Comment on above: Performed By: #### C BC #### [facility] [address] [place] [address] Dr. Toy Macario MCHC (RBC) [Mass/Vol] 31.6 g/dL Normal 29.9-35.2 [facility] Comment on above: Performed By: #### C BC #### [facility] [address] [place] [address] Dr. Toy Macario MCV (RBC) [Entitic vol] 88.8 fL Normal 81.0-99.0 [facility] Comment on above: Performed By: #### C BC #### [facility] [address] [place] [address] Dr. Toy Macario MONO # 0.7 103/ul Normal 0.3-0.8 [facility] Comment on above: Performed By: #### C BC #### [facility] [address] [place] [address] Dr. Toy Macario Monocytes/100 WBC (Bld) 6.3 % Normal 1.7-12.0 [facility] Comment on above: Performed By: #### C BC #### [facility] [address] [address] [address] Toy Macario NEUT # 9.4 103/ul Critically high 1.4-6.5 [facility] Comment on above: Performed By: #### C BC #### [facility] [address] [address] [address] Toy Macario Neutrophils/100 WBC (Bld) 84.1 % Critically high 43.0-75.0 [facility] Comment on above: Performed By: #### C BC #### [facility] [address] [address] [address] Toy Macario Platelet mean volume (Bld) [Entitic vol] 9.1 fL Critically low 9.5-13.5 [facility] Comment on above: Performed By: #### C BC #### [facility] [address] [place] [address] Dr. Toy Macario PLT 361 103/ul Normal 150-450 [facility] Comment on above: Performed By: #### C BC #### [facility] [address] [address] [address] Toy Macario RBC 3.85 106/ul Critically low 4.20-5.40 [facility] Comment on above: Performed By: #### C BC #### [facility] [address] [place] [address] Dr. Toy Macario WBC 11.2 103/ul Critically high 4.0-11.[address] [facility] Comment on above: Performed By: #### C BC #### [facility] [address] [place] [address] ABD/PELV W CONon 04-15-[address] ABD/PELV W CON EXAMINATION: CT ABD/PELV [...] URIEL GUILLEN Date: 2021-04-15 11:33 Normal [facility] CULTURE BLOODon 04-15-2021 Microscopic examination of blood, culture Culture Observations: NO GROWTH AT 5 DAYS. Normal [facility] Comment on above: Performed By: #### C [facility] #### [facility] [address] [place] [address] Dr. Toy Macario Covid-19 PCR ([facility])on 04-06 SARS-CoV-2 (COVID-19) RNA PITO+probe Ql (Unsp spec) Not detected Normal NOT DETECTED [facility] Comment on above: Result Comment: When diagnostic [...] for this test is supported by the [employer]'s declaration that [...] used). Performed By: #### C BC #### [facility] [address] [place] [address] Dr. Toy Maacrio ER URINE PROFILEon 2 Bilirubin Ql (U) Negative Normal NEGATIVE [facility] Comment on above: Performed By: #### C MP, LIPA #### [facility] [address] [place] [address] Dr. Toy Macario Clarity (U) CLOUDY Abnormal CLEAR [facility] Comment on above: Performed By: #### C MP, LIPA #### [facility] [address] [place] [address] Dr. Toy Macario Color (U) YELLOW Normal YELLOW [facility] Comment on above: Performed By: #### C MP, LIPA #### [facility] [address] [place] [address] Dr. Toy Macario ERUAHD A micrscopic examination will be performed if indicated. Normal [facility] Comment on above: Performed By: #### C MP, LIPA #### [facility] [address] [place] [address] Dr. Toy Macario Glucose Ql (U) Negative Normal NEGATIVE [facility] Comment on above: Performed By: #### C MP, LIPA #### [facility] [address] [place] [address] Dr. Toy Macario Hemoglobin Ql (U) SMALL Abnormal NEGATIVE [facility] Comment on above: Performed By: #### C MP, LIPA #### [facility] [address] [place] [address] Dr. Toy Macario Ketones Ql (U) 15 mg/dl Abnormal NEGATIVE [facility] Comment on above: Performed By: #### C MP, LIPA #### [facility] [address] [place] [address] Dr. Toy Macario LEUKOCYTES TRACE Abnormal NEGATIVE [facility] Comment on above: Performed By: #### C MP, LIPA #### [facility] [address] [place] [address] Dr. Toy Macario Nitrite Ql (U) Negative Normal NEGATIVE [facility] Comment on above: Performed By: #### C MP, LIPA #### [facility] [address] [place] [address] Dr. Toy Macario pH (U) 6.0 [pH] Normal 5-9 [facility] Comment on above: Performed By: #### C MP, LIPA #### [facility] [address] [place] [address] Dr. Toy Macario Protein (U) [Mass/Vol] 100 mg/dL Abnormal NEGAT CHRISTINA/ TRACE [facility] Comment on above: Performed By: #### C MP, LIPA #### [facility] [address] [place] [address] Dr. Toy Macario SPEC GRAVITY 1.025 Normal 1.005-<=1.0 25 [facility] Comment on above: Performed By: #### C MP, LIPA #### [facility] [address] [place] [address] Dr. Toy Macario UR MICRO IND INDICATED Normal [facility] Comment on above: Performed By: #### C MP, LIPA #### [facility] [address] [place] [address] Dr. Toy Macario Urobilinogen Qn (U) 1.0 {Lisha'U}/dL Normal 0.2 - 1. 0 [facility] Comment on above: Performed By: #### C MP, LIPA #### [facility] [address] [place] [address] Dr. Toy Macario LIPASEon 04-15-2021 Lipase [Catalytic activity/Vol] 929.0 U/L Critically high 23.0-300.0 [facility] Comment on above: Performed By: #### C MP, LIPA #### [facility] [address] [place] [address] Dr. Toy Macario LIVER PROFILEon 04-15-2021 Albumin [Mass/Vol] 2.3 g/dL Critically low 3.5-5.0 [facility] Comment on above: Performed By: #### C MP, LIPA #### [facility] [address] [place] [address] Dr. Toy Macario Albumin/Globulin [Mass ratio] 0.5 {ratio} Normal [facility] Comment on above: Performed By: #### C MP, LIPA #### [facility] [address] [place] [address] Dr. Toy Macario ALP [Catalytic activity/Vol] 73 U/L Normal 38-126 [facility] Comment on above: Performed By: #### C MP, LIPA #### [facility] [address] [place] [address] Dr. Toy Macario ALT [Catalytic activity/Vol] 29 U/L Normal 9-52 [facility] Comment on above: Performed By: #### C MP, LIPA #### [facility] [address] [place] [address] Dr. Toy Macario AST [Catalytic activity/Vol] 21 U/L Normal 14-36 [facility] Comment on above: Performed By: #### C MP, LIPA #### [facility] [address] [place] [address] Dr. Toy Macario BILI, CONJUGATED 0.1 mg/dL Normal 0.0-0.3 [facility] Comment on above: Performed By: #### C MP, LIPA #### [facility] [address] [place] [address] Dr. Toy Macario Bilirubin [Mass/Vol] 0.4 mg/dL Normal 0.2-1.3 [facility] Comment on above: Performed By: #### C MP, LIPA #### [facility] [address] [place] [address] Dr. Toy Macario Globulin (S) [Mass/Vol] 5.1 g/dL Normal [facility] Comment on above: Performed By: #### C MP, LIPA #### [facility] [address] [place] [address] Dr. Toy Macario Protein [Mass/Vol] 7.4 g/dL Normal 6.1-8.2 [facility] Comment on above: Performed By: #### C MP, LIPA #### [facility] [address] [place] [address] Dr. Toy Macario URon 04-15-2021 , QUAL Negative Normal NEGATIVE [facility] Comment on above: Performed By: #### P REGU #### [facility] [address] [place] [address] Dr. Toy Macario PROF CHEM 8 (BAS METB)on Anion gap [Moles/Vol] 10.5 mmol/L Normal [facility] Comment on above: Performed By: #### C MP, LIPA #### [facility] [address] [place] [address] Dr. Toy Macario Calcium [Mass/Vol] 9.0 mg/dL Normal 8.4-10.2 [facility] Comment on above: Performed By: #### C MP, LIPA #### [facility] [address] [place] [address] Dr. Toy Macario Chloride [Moles/Vol] 102 mmol/L Normal 98-107 [facility] Comment on above: Performed By: #### C MP, LIPA #### [facility] [address] [place] [address] Dr. Toy Macario CO2 [Moles/Vol] 27.5 mmol/L Normal 22.0-30.0 [facility] Comment on above: Performed By: #### C MP, LIPA #### [facility] [address] [address] [address] Toy Macario Creatinine [Mass/Vol] 0.68 mg/dL Normal 0.52-1.04 [facility] Comment on above: Performed By: #### C MP, LIPA #### [facility] [facility] [address] [address] [address] Toy Macario EGFR-AF ANDORRAN >60 Normal >=60 [facility] Comment on above: Performed By: #### C MP, LIPA #### [facility] [address] [address] [address] Toy Macario EGFR-NON AF ANDORRAN >60 Normal >=60 [facility] Comment on above: Performed By: #### C MP, LIPA #### [facility] [address] [address] [address] Toy Macario Glucose [Mass/Vol] 137 mg/dL Critically high 74-106 [facility] Comment on above: Performed By: #### C MP, LIPA #### [facility] [address] [address] [address] Toy Macario Potassium [Moles/Vol] 3.5 mmol/L Normal 3.4-5.0 [facility] Comment on above: Performed By: #### C MP, LIPA #### [facility] [address] [address] [address] Toy Macario Sodium [Moles/Vol] 139 mmol/L Normal 137-145 [facility] Comment on above: Performed By: #### C MP, LIPA #### [facility] [address] [address] [address] Toy Macario Urea nitrogen [Mass/Vol] 7.0 mg/dL Normal 7.0-17.0 [facility] Comment on above: Performed By: #### C MP, LIPA #### [facility] [address] [address] [address] Toy Macario Urea nitrogen/Creatinine [Mass ratio] 10.3 mg/mg Normal [facility] Comment on above: Performed By: #### C MP, LIPA #### [facility] [address] [address] [address] Toy Macario URINE MICROSCOPIC ONLYon AMORPHOUS CRYSTALS MODERATE Normal [facility] Comment on above: Performed By: #### C MP, LIPA #### [facility] [address] [address] [address] oTy Macario BACTERIA SMALL Abnormal NONE SEEN [facility] Comment on above: Performed By: #### C MP, LIPA #### [facility] [address] [address] [address] Toy Macario Bacteria identified Cx Nom (U) INDICATED Normal [facility] Comment on above: Performed By: #### C MP, LIPA #### [facility] [address] [place] [address] Dr. Toy Macario CAST NONE SEEN Normal NONE SEEN [facility] Comment on above: Performed By: #### C MP, LIPA #### [facility] [address] [place] [address] Dr. Toy Macario Crystals LM Nom (Urine sed) SEEN Abnormal NONE SEEN [facility] Comment on above: Performed By: #### C MP, LIPA #### [facility] [address] [place] [address] Dr. Toy Macario Epithelial cells LM Ql (Urine sed) FEW Abnormal NONE SEEN /RARE [facility] Comment on above: Performed By: #### C MP, LIPA #### [facility] [address] [place] [address] Dr. Toy Macario MUCOUS SMALL Abnormal NONE SEEN The [facility] Comment on above: Performed By: #### C MP, LIPA #### [facility] [address] [place] [address] Dr. Toy Macaroi RBC 2-5 Abnormal 0-2 [facility] Comment on above: Performed By: #### C MP, LIPA #### [facility] [address] [place] [address] Dr. Toy Macario WBC 5-10 Abnormal NONE SEEN The [facility] Comment on above: Performed By: #### C MP, LIPA #### [facility] [address] [place] [address] Dr. Toy Macario CBC AUTO DIFFon 03-19-2021 BASO # 0.1 103/ul Normal 0.0-0.1 [facility] Comment on above: Performed By: #### O DEVENDRA #### [facility] [address] [place] [address] Dr. Toy Macario Basophils/100 WBC (Bld) 0.6 % Normal 0.2-2.0 [facility] Comment on above: Performed By: #### O DEVENDRA #### [facility] [address] [place] [address] Dr. Toy Macario EO # 0.1 103/ul Normal 0.0-0.7 [facility] Comment on above: Performed By: #### O DEVENDRA #### [facility] [address] [place] [address] Dr. Toy Macario Eosinophils/100 WBC (Bld) 0.5 % Critically low 0.9-7.0 [facility] Comment on above: Performed By: #### O DEVENDRA #### [facility] [address] [place] [address] Dr. Toy Macario Erythrocyte distribution width (RBC) [Ratio] 14.7 % Normal 11.0-15.0 [facility] Comment on above: Performed By: #### O DEVENDRA #### [facility] [address] [place] [address] Dr. Toy Macario Hematocrit (Bld) [Volume fraction] 40.8 % Normal 36.0-48.0 [facility] Comment on above: Performed By: #### O DEVENDRA #### [facility] [address] [place] [address] Dr. Toy Macario Hemoglobin (Bld) [Mass/Vol] 12.8 g/dL Normal 12.0-16.0 [facility] Comment on above: Performed By: #### O DEVENDRA #### [facility] [address] [place] [address] Dr. Toy Macario IG # 0.04 10e3/ul Critically high 0.00-0.03 [facility] Comment on above: Performed By: #### O DEVENDRA #### [facility] [address] [address] [address] Toy Macario IG % 0.3 % Normal 0.0-0.5 [facility] Comment on above: Performed By: #### O DEVENDRA #### [facility] [address] [address] [address] Toy Macario LYMPH # 1.0 103/ul Critically low 1.2-3.8 [facility] Comment on above: Performed By: #### O DEVENDRA #### [facility] [address] [place] [address] Dr. Toy Macario Lymphocytes/100 WBC (Bld) 8.1 % Critically low 20.5-60.0 [facility] Comment on above: Performed By: #### O DEVENDRA #### [facility] [address] [place] [address] Dr. Toy Macario MANUAL DIFF REQ NO Normal [facility] Comment on above: Performed By: #### O DEVENDRA #### [facility] [address] [place] [address] Dr. Toy Macario MCH (RBC) [Entitic mass] 28.1 pg Normal 26.7-34.0 [facility] Comment on above: Performed By: #### O DEVENDRA #### [facility] [address] [place] [address] Dr. Toy Macario MCHC (RBC) [Mass/Vol] 31.4 g/dL Normal 29.9-35.2 [facility] Comment on above: Performed By: #### O DEVENDRA #### [facility] [address] [place] [address] Dr. Toy Macario MCV (RBC) [Entitic vol] 89.7 fL Normal 81.0-99.0 [facility] Comment on above: Performed By: #### O DEVENDRA #### [facility] [address] [place] [address] Dr. Toy Macario MONO # 0.8 103/ul Normal 0.3-0.8 [facility] Comment on above: Performed By: #### O DEVENDRA #### [facility] [address] [place] [address] Dr. Toy Macario Monocytes/100 WBC (Bld) 6.3 % Normal 1.7-12.0 [facility] Comment on above: Performed By: #### O DEVENDRA #### [facility] [address] [place] [address] Dr. Toy Macario NEUT # 10.0 103/ul Critically high 1.4-6.5 [facility] Comment on above: Performed By: #### O DEVENDRA #### [facility] [address] [place] [address] Dr. Toy Macario Neutrophils/100 WBC (Bld) 84.2 % Critically high 43.0-75.0 [facility] Comment on above: Performed By: #### O DEVENDRA #### [facility] [address] [place] [address] Dr. Toy Macario Platelet mean volume (Bld) [Entitic vol] 9.5 fL Normal 9.5-13.5 [facility] Comment on above: Performed By: #### O DEVENDRA #### [facility] [address] [place] [address] Dr. Toy Macario PLT 216 103/ul Normal 150-450 [facility] Comment on above: Performed By: #### O DEVENDRA #### [facility] [address] [place] [address] Dr. Toy Macario RBC 4.55 106/ul Normal 4.20-5.40 [facility] Comment on above: Performed By: #### O DEVENDRA #### [facility] [address] [place] [address] Dr. Toy Macario WBC 11.9 103/ul Critically high 4.0-11.0 [facility] Comment on above: Performed By: #### O DEVENDRA #### [facility] [address] [place] [address] ABD/PELV W CONon 03-19-[address] ABD/PELV W CON EXAMINATION: CT ABD/PELV [...] ART NIX Date: 2021-03-19 15:19 Normal [facility] CULTURE URINEon 03-19-2021 CULTURE URINE Culture Observations : LIGHT GROWTH OF MIXED GENITAL CHRIS. NO POTENTIAL PATHOGENS SEEN. Normal [facility] Comment on above: Performed By: #### C [facility] #### [facility] [address] [place] [address] Dr. Toy Macario Covid-19 PCR ([facility])on 03-06 SARS-CoV-2 (COVID-19) RNA PITO+probe Ql (Unsp spec) Not detected Normal NOT DETECTED [facility] Comment on above: Result Comment: When diagnostic [...] for this test is supported by the [place] [employer] Service's declaration that [...] longer be used). Performed By: #### C MP, LIPA #### [facility] [address] [place] [address] Dr. Toy Macario ER URINE PROFILEon 2 Bilirubin Ql (U) SMALL Abnormal NEGATIVE [facility] Comment on above: Performed By: #### C VDTBH #### [facility] [address] [place] [address] Dr. Toy Macario Clarity (U) SL CLOUDY Abnormal CLEAR [facility] Comment on above: Performed By: #### C VDTBH #### [facility] [address] [place] [address] Dr. Toy Macario Color (U) YELLOW Normal YELLOW [facility] Comment on above: Performed By: #### C VDTBH #### [facility] [address] [place] [address] Dr. Toy GA A micrscopic examination will be performed if indicated. Normal [facility] Comment on above: Performed By: #### C VDTBH #### [facility] [address] [place] [address] Dr. Toy Macaroi Glucose Ql (U) Negative Normal NEGATIVE [facility] Comment on above: Performed By: #### C VDTBH #### [facility] [address] [place] [address] Dr. Toy Macario Hemoglobin Ql (U) Negative Normal NEGATIVE [facility] Comment on above: Performed By: #### C VDTBH #### [facility] [address] [place] [address] Dr. Toy Macario Ketones Ql (U) Negative Normal NEGATIVE [facility] Comment on above: Performed By: #### C VDTBH #### [facility] [address] [place] [address] Dr. Toy Macario LEUKOCYTES SMALL Abnormal NEGATIVE [facility] Comment on above: Performed By: #### C VDTBH #### [facility] [address] [place] [address] Dr. Toy Macario Nitrite Ql (U) Negative Normal NEGATIVE [facility] Comment on above: Performed By: #### C VDTBH #### [facility] [address] [place] [address] Dr. Toy Macario pH (U) 6.0 [pH] Normal 5-9 [facility] Comment on above: Performed By: #### C VDTBH #### [facility] [address] [place] [address] Dr. Toy Macario Protein (U) [Mass/Vol] 30 mg/dL Abnormal NEGAT CHRISTINA/ TRACE [facility] Comment on above: Performed By: #### C VDTBH #### [facility] [address] [place] [address] Dr. Toy Macario SPEC GRAVITY >=1.030 Abnormal 1.005-<=1.0 25 [facility] Comment on above: Performed By: #### C VDTBH #### [facility] [address] [place] [address] Dr. Toy Macario UR MICRO IND INDICATED Normal [facility] Comment on above: Performed By: #### C VDTBH #### [facility] [address] [place] [address] Dr. Toy Macario Urobilinogen Qn (U) 1.0 {Lisha'U}/dL Normal 0.2 - 1. 0 [facility] Comment on above: Performed By: #### C VDTBH #### [facility] [address] [place] [address] Dr. Toy Macario INFLUENZA A AND B AGon 03-19 INFLUANEGH SEE BELOW Normal [facility] Comment on above: Result Comment: Nega tive for Flu A protein angiten. Infection due to Flu A cannot be ruled out. Flu A angiten in the sample may be below the detection limit of the test. Performed By: #### L IPA, CMP #### [facility] [address] [place] [address] Dr. Toy Macario INFLUBNEG SEE BELOW Normal [facility] Comment on above: Result Comment: Nega tive for Flu B protein antigen. Infection due to Flu B cannot be ruled out. Flu B antigen in the sample may be below the detection limit of the test. Performed By: #### L IPA, CMP #### [facility] [address] [place] [address] Dr. Toy Macario INFLUENZA A AG Negative Normal NEGATIVE SEE COMMENT [facility] Comment on above: Performed By: #### L IPA, CMP #### [facility] [address] [place] [address] Dr. Toy Macario INFLUENZA B AG Negative Normal NEGATIVE SEE COMMENT [facility] Comment on above: Performed By: #### L IPA, CMP #### [facility] [address] [place] [address] Dr. Toy Macario INTERNAL CONTROLS Within Normal Limits Normal Wi thin Normal Limits [facility] Comment on above: Performed By: #### L IPA, CMP #### [facility] [address] [place] [address] Dr. Toy Macario LIPASEon 03-19-2021 Lipase [Catalytic activity/Vol] 134.0 U/L Normal 23.0-300.0 [facility] Comment on above: Performed By: #### C MP, LIPA #### [facility] [address] [place] [address] Dr. Toy Macario URon 03-19-2021 , QUAL Negative Normal NEGATIVE [facility] Comment on above: Performed By: #### O DEVENDRA #### [facility] [address] [address] [address] Toy Macario PROF 14(COMP METB)on 022 Albumin [Mass/Vol] 3.3 g/dL Critically low 3.5-5.0 [facility] Comment on above: Performed By: #### C MP, LIPA #### [facility] [address] [address] [address] Toy Macario Albumin/Globulin [Mass ratio] 0.8 {ratio} Normal [facility] Comment on above: Performed By: #### C MP, LIPA #### [facility] [address] [address] [address] Toy Macario ALP [Catalytic activity/Vol] 151 U/L Critically high 38-126 [facility] Comment on above: Performed By: #### C MP, LIPA #### [facility] [address] [place] [address] Dr. Toy Macario ALT [Catalytic activity/Vol] 105 U/L Critically high 9-52 [facility] Comment on above: Performed By: #### C MP, LIPA #### [facility] [address] [address] [address] Toy Macario Anion gap [Moles/Vol] 11.6 mmol/L Normal [facility] Comment on above: Performed By: #### C MP, LIPA #### [facility] [address] [address] [address] Toy Macario AST [Catalytic activity/Vol] 222 U/L Critically high 14-36 [facility] Comment on above: Performed By: #### C MP, LIPA #### [facility] [address] [address] [address] Toy Macario Bilirubin [Mass/Vol] 1.3 mg/dL Normal 0.2-1.3 [facility] Comment on above: Performed By: #### C MP, LIPA #### [facility] [address] [address] [address] Toy Macario Calcium [Mass/Vol] 8.8 mg/dL Normal 8.4-10.2 [facility] Comment on above: Performed By: #### C MP, LIPA #### [facility] [address] [address] [address] Toy Macario Chloride [Moles/Vol] 107 mmol/L Normal 98-107 [facility] Comment on above: Performed By: #### C MP, LIPA #### [facility] [address] [place] [address] Dr. Toy Macario CO2 [Moles/Vol] 25.7 mmol/L Normal 22.0-30.0 [facility] Comment on above: Performed By: #### C MP, LIPA #### [facility] [address] [place] [address] Dr. Toy Macario Creatinine [Mass/Vol] 0.92 mg/dL Normal 0.52-1.04 [facility] Comment on above: Performed By: #### C MP, LIPA #### [facility] [address] [place] [address] Dr. Toy Macario EGFR-AF ANDORRAN >60 Normal >=60 [facility] Comment on above: Performed By: #### C MP, LIPA #### [facility] [address] [place] [address] Dr. Toy Macario EGFR-NON AF ANDORRAN >60 Normal >=60 [facility] Comment on above: Performed By: #### C MP, LIPA #### [facility] [address] [place] [address] Dr. Toy Macario Globulin (S) [Mass/Vol] 3.9 g/dL Normal [facility] Comment on above: Performed By: #### C MP, LIPA #### [facility] [address] [place] [address] Dr. Toy Macario Glucose [Mass/Vol] 168 mg/dL Critically high 74-106 [facility] Comment on above: Performed By: #### C MP, LIPA #### [facility] [address] [place] [address] Dr. Toy Macario Potassium [Moles/Vol] 4.3 mmol/L Normal 3.4-5.0 [facility] Comment on above: Performed By: #### C MP, LIPA #### [facility] [address] [place] [address] Dr. Toy Macario Protein [Mass/Vol] 7.2 g/dL Normal 6.1-8.2 [facility] Comment on above: Performed By: #### C MP, LIPA #### [facility] [address] [place] [address] Dr. Toy Macario Sodium [Moles/Vol] 140 mmol/L Normal 137-145 [facility] Comment on above: Performed By: #### C MP, LIPA #### [facility] [address] [place] [address] Dr. Toy Macario Urea nitrogen [Mass/Vol] 8.0 mg/dL Normal 7.0-17.0 [facility] Comment on above: Performed By: #### C MP, LIPA #### [facility] [address] [place] [address] Dr. Toy Macario Urea nitrogen/Creatinine [Mass ratio] 8.7 mg/mg Normal [facility] Comment on above: Performed By: #### C MP, LIPA #### [facility] [address] [place] [address] Dr. Toy Macario URINE MICROSCOPIC ONLYon BACTERIA MODERATE Abnormal NONE SEEN [facility] Comment on above: Performed By: #### C VDTBH #### [facility] [address] [place] [address] Dr. Toy Macario Bacteria identified Cx Nom (U) INDICATED Normal [facility] Comment on above: Performed By: #### C VDTBH #### [facility] [address] [place] [address] Dr. Toy Macario CAST NONE SEEN Normal NONE SEEN [facility] Comment on above: Performed By: #### C VDTBH #### [facility] [address] [place] [address] Dr. Toy Macario Crystals LM Nom (Urine sed) NONE SEEN Normal NONE SEEN [facility] Comment on above: Performed By: #### C VDTBH #### [facility] [address] [address] [address] Toy Macario Epithelial cells LM Ql (Urine sed) MODERATE Abnormal NONE SEEN /RARE [facility] Comment on above: Performed By: #### C VDTBH #### [facility] [address] [address] [address] Toy Macario MUCOUS MODERATE Abnormal NONE SEEN [facility] Comment on above: Performed By: #### C VDTBH #### [facility] [address] [address] [address] Toy Macario RBC 5-10 Abnormal 0-2 [facility] Comment on above: Performed By: #### C VDTBH #### [facility] [address] [address] [address] Toy Macario WBC 10-20 Abnormal NONE SEEN [facility] Comment on above: Performed By: #### C VDTBH #### [facility] [address] [address] [address] Toy Macario Coding Summaryon 09-18-2020 Coding Summary [facility] [id number] Q+[id number] [id number] 0gbTM3DNhtR5NpreWi WfnhiTVqIQ33SLe9NQG6gE zlOGfkaK6oqHNoV0d0LaHs BG83tB48OCfvBDOqBhR5Wy ZpbjsgbWFy B9hqZeDloNLaXdp+PHRhYm xlIHdpZHRoPScxMDAlJyBz rLzmVY1jGt3uNFBdWAFbkV xhcHNlOiBj d8kjCLTtQKheFJ3ccPcoR4 KavYR8GJVjb9j7Lu66sUG+ LYScNBM6dNtyYQhdq326Ko Mup9diUTZ9 qFEhHFckQVG9P58bx6C9EP QiDUNyJXA5bBA8yI7wqZbt flurK0VvwXEtZyD5IGL6eF DbjH3hsNdh katmeV9iNlk+D77WEA3SAL SGTW8USpl6W9EyLpqeaFD+ KT87VHHlHZ01nITksTZam8 tffNg6ShYy CDZgYRD3jHmoVApgy9OqYN XhM43odCOpw7V8EKDbsJwb eADhPgBiuWK8jH0pVMdmcc eue4gmtpuy Garwf5wjlw06zG18C31tLK jcPADwXNL3QLUsQUGxxZiu sf8wpJ2tRs4+HVvhk0wwv0 luxQm4XeTa EONdjbFlnAhwVXP7b1WbGj 66Y4QhkJtom2TuSpd6rz05 iTEiw1F6lRM9RWqcUQLeoD 8nMDjnYhC0 CZMjOpFgnK59rMTyPDpuBv 2txTwipYjnOT8sHUIzpxrl KYXqiM4gNVWgnKUvyRbgLZ 4wNTBpbjtm o799GkQhHLA5RABigZFnB9 NxkW0pIgHvUWCbZFZcZ7Um dDNrTSbjT880YKuoDuV4YI QnceHvY3Di CYCzjFxnJeW7f4K1Ms8Fx2 YwefikTJA4UAksOGE0TkF3 OgXoFvD5S0CnHue4MLSoaL keXV2eT8Rt QPVtislsvtfnqWI1YVQzTF BonS98oYHgOEsnRa7le6X7 a547DCJbOPShvB92Rk4yrY ogMTBwdCBU rH8cazfpq8egemncNyJrAR MfSYd3ACz2TDAokXjwQgBy VUR3YcK6CGS3dDXykG8lrF zmoqgqkQ0n Oyc+O15ltD5uZIM6LSU7cl ngWRIlvgIfVF52GR20Y4Zi PjwvdGFibGU+PGRpdiBzdH srIV1mTmLn p2wui8WrBYuaR1NhLEYwST fgIrt3DLXoVBO4tKA1zG0n JYFjHNhjb0F6uPB0Y7Mryu Atsy4pn8sq ACWiUYwqE96toPTxx8V1DZ ZctVH8VTYmdQeeQhQfuW55 Oyc+OGXquMvvq7GpEwqnm2 mkz8peuFd9 KdEgERUvjuXhqPgyJTM4n5 YgYw62U97wWEetQXVnKBMr CJQvQKIgxBzxap3ebN5lMo 8+PGNvbCB3 tDQ6iY1eFQIqXgE7REmxQ5 20CuAjrTBzOglej5ttg8cv jWt1CuMnIDSngzUsjAlpJZ J4z7GdVa75 F22nUEsmDZPxNDMfWKKaJR NbuErpsh6ocR5nAc8+PC9j n6ahra99rJ21vSE+PHRkIH B6fZoiNIbc BNUeyF6kIAzyVqC8XDIlBd OkgP68sDPtRFliQc1etAgi uJbnQJ6yDBWuwzxyt567Fi Njr9yeGUPj rRHeFXacGIT3Y70qb8T8MY AuKHEdOYO8uGR1wO1zuRvg bjogbGVmdDsgdmVydGljYW bkRBcsE759 IHRvcDsnPlBhdGllbnQgTm MmOCg3V2GuQju6XBXurGhc EW8jzPLaFKcdRn8owJvgpK qbKL6fKJSq ydcpi009YiOdi0gvKGKiwB AkIJihUYV5Z02pq5H6MWQw QASfFCQ4zRV6yG4zmUtduu ogbGVmdDsg qcMklIcuJDjgKOkoV999HR RvcDsnPkJpcnRoIERhdGU6 MF03QY87mNIch5H0sUK0N4 BhZGRpbmct cwdspOR4FYEqOMIudV35Yl 9pjCeaNv1mHRQfAZD8CEXj eLNkA2UjsF1sPqPwFCIzRG LjV6PgiPKj IAjyA436UZaeDzL5UPQioi UaA8KhVYQylAfuQiQ3n8H5 Iz1WX5G9QF14PC86pDJhw9 C6oJA8B8Nz YFFizgzzlwvcyWS1SFUnJC XtbE04Ky0xrLkkKt8bAOOe COI2IIOzjQHeC6VikX2pJl AjMDAwMDAw G7LstZKoJLbrB877QEvqTf T8LACzyiWtW9ZfKSBdzRyl NpM4g8V3Nk1XTWb5UW18FL 89zEGgd3B7 kUU0P3ZlZMMdeogaqcciaG Y5XJQpBHDesB21Ba2vyQks Hl2pGSPbFAL0ODPqjEGvU7 WihN8fJcIh BEFbCYEkX5HhlADzNJkaV0 28JQkhPaB0SPMniqQhE1Qj ZLFikWffPdY7u5P2Xb3SVB WyET88PDI2 vNS2SB01MB91E9LsJmmzsJ FibGU+PHRhYmxlIHdpZHRo JJjxPOKjYtCxbIldAO3bQm 9yZGVyLWNv qNozxXHyYhQss4ktWUQjET gvVQ2hxOecU6GwdBU2YGWe q4w4Ty22H65lN8NqwAU+PG JeaVH1uQZ5 sZ0pYoZyGrT7SYqgW995Qy VsrULzAwzum0gsn8skdGe2 LdG9IDYiknBhaTgyCFC2c3 SuZh33O07t IHdpZHRoPSIxNSUiIHZhbG vjlx0ctR7zBt1+PGNvbCB3 xXI5qR4aIxOgZjA5JHfiM6 49InRvcCIv Nckhy1ulg4aeyXl0PmIdDW XsuwUhcAoeLCL1x1JjKy18 R2TarWrth6DrEfx9og69lK Bzu9E5kHX1 K9HdYBQphepjfEAtzUnoMA 8sJYSplwnrQOMslZ8bAOWe H0r0KnKqZtZ9EUkzC8Dhjx K4GNWpfQDq GOunBRK2X36cs4Y6LTAkQN OwULC0wUQ6qC4ekZrixbeq bGVmdDsgdmVydGljYWwtYW izU689CGSm hFktJHRymE9pWLTcaILiaZ fyOF5uAPDcaqhlQaeWFr7E T1VWZTGUICGPSQE9D9RdDi j0NTWbfGuz EF1dhOWdOPiaYf3mmIwwxA pyRY3fCGFnzqazAATzfV7k ATRpuFPiuLspKF1qEZIaln mtf570SmKz TCO4GDUspFDeB0VdxE7bWf XfIXRkLCMgM9LpnXZmRUga Y778LOvyZrX9HYTxjyQvR4 FsLWFsaWdu ZwZ6o5H1Yn8vBP0yDV8uJO t5XU36IQ58qAFtl4C0dYL6 U7SrXNZoliscojudcDV8DU FwCDMvuN58 wAYvTMweVw0lt9J8r466BJ BpUZWhhF62Rx1erYqpRBBw dPHTdK7hhzpvg1mutuyeUz AwMDAwMDt0 TZv6JGYptFqtFnGwESE0Ao T2SMA7pKJnfR2rfJfqkzxr jB3yYjw+CRXhDPLpfhB4X2 DmYqo6IJYz eIjlTE0muZMuTYjzUw1yfI curRgcZO3uLGAtjupoSZDt jK0yIVGbtFYddQjwFP3sFY Fnmknje124 GwScJAJ2GFMfoNSqO1ShgM 9fQtWbUQHfNUVdE1FqlIUi BPysK930EKunSjC5MBRiaw GjA4VqYCPo iZmmPrL3y7D5Pa6KRY3AEK W2T6AgAil5BSRyfJykQR8w dQGlFYlpBs6owEdfcFupXN 4wNTBpbjtw NJWhdR8yTHPcyYPnyTfjNN 9fWBYyfyood883YkIkJZK8 CSRlrQBdE7PicX5hNyStKE RoQXTjH9Bn vPRlVFmrA920XMdzNxC2MZ ZnutXjL2AqSOPsuOgiZxT6 m8O6Lw8OxEDiBREiAD65ME luIGEgQmVk DR47YZ26V3WwBbwfeQGhdE U+PHRhYmxlIHdpZHRoPScx VUOaDcXwpYqnAL4nTf5oEC VyLWNvbGxh cDGsTnVqs3xlDWSuVQufBA 6hzOviX1ViqWI5HUKzp0p4 Ki85C45jE1RfqFU+PGNvbC J5rOP3yP3x TlWsVuI0DHqcQ762SjMhhU KnXdeuq8ulb6fcwAt5OtWt WPVufgGfaTrfAZM7g7DzSh 51Z51rEWdn ZHRoPSIyMCUiIHZhbGlnbj 3anU4xKj5+FFVrwQL9vBC8 qT9mDbXuFpB8BOwnF711Tt RvcCIvPjwv R01sJ2KpeMZ+DLGtFfd3CY IwpAwaEL1miUUwEHinPw6w KNT5RvZcZbUvRKohC4MjBG Rpbmctcmln dYK3RAOnELZfaP58Rh7dsS owVr4yPVMiTSJ5OWIxiPOm C5HkrG6uKeZjRLMvTTTzL0 RleHQtYWxp C129KWcgLhA1ZMAmqtTvW9 KoXJKryPojSlW2f2I5Ed6P jCsisGLtXN3fVlCsWDl8Q4 QoXdg2AFVh dApkPW7gzTBxUUmsJc4diB uizJzwNN7pRMKzpghnn756 GuKau5kmEZFqfJWbGLunEK T5U84xt9G6 XSTkFEUlZKE5sON8yP8hhK lnbjogbGVmdDsgdmVydGlj ELjtKGjfT287AROhgCclGi PPJjh0O1Wb Gka6XQWhaUdiHR4kiZLcLI vcAz6fhGmhzYuhBR4dXRAo rddua733PyQbc3zzNSHuoL QgVGltZXM7 G37ye0U0NKOyOWJfNFT3uW D4tV6khMfgaqxgmNLrnJnd niXbgLiaUBmnWRmaV227IQ QkkIurNw7W Qsr4K5SrWgw5FGEqdGtrPK 7deEZjWWkmEv6mfYuizJfr XK6cUVQcouxpi377PiSwf8 xkIDEwcHQg BRgmRZK2C78nd4R5JOHwJA XkAWD8lNV5yQ2ddInhgefk bGVmdDsgdmVydGljYWwtYW riT824DUSm cDsnPlBheWVyOjwvdGQ+PC 01ey81H6WvBsteYvq5KXQf FKV0oRY7sM0iWIMjVLzif5 E3pVQ8B2Vy cmR (more content not included)... [facility] Consultation/Specialist Note on 09-16-2020 Consultation/Specialist Note HOME SLEEP STUDY DATE OF STUDY: 09/10/2020 INDICATION FOR STUDY: Sleep apnea. Home sleep testing was performed without sleep staging but with continuous measurement of body position, oxygen saturations, heart rate, snore volumes, thoracic, abdominal movement and nasal flow. As sleep is not measured for [id number] home testing index time consists of time [...] is advised. Uriel Stone M.D. JOB #: [id number] CC: Tamara Calero DO [Electronically Signed on: 09/16/2020 13:28 EDT] Uriel Stone MD [Verified on: 09/16/2020 13:28 EDT] Uriel Stone MD [Transcribed on: 09/16/2020 11:10 EDT] [facility] Sleep Studyon 09-16-2020 Sleep Study [id number]#1.[address] [place] [address] Provider Orderson 09-09-2020 Provider Orders [id number]#1.[address] [place] [address] Provider Orderson 08-28-2020 Provider Orders [id number]#1.[address] [place] [address] Provider Orderson 08-27-2020 Provider Orders [id number]#1.[address] [place] [address] Flu A/B Ag Detectionon 03-11 Flu A/B Ag Detection Specimen Descriptio n .NASOPHARYNGEAL SWABSpecial Requests NOT REPORTEDDirect Exam PRESUMPTIVE NEGATIVE for Influenza A + B antigens. PCR testing to confirm this result is available upon request. Specimen will be saved in the laboratory for 7 days. Please call [phone] if PCR testing is indicated. Report Status FINAL 03/11/2018 [facility] Comment on above: Performed By: #### F LUAD ####[facility] [place] [address] Vital Signs Date Time Vital Sign Value Performing Clinician Facility 03-31-2024 12:25-0500 Body height 167.64 cm Tamara Calero DO Work Phone: [facility] 03-31-2024 12:25-0500 Body mass index (BMI) [Ratio] 39.7 kg/m2 Tamara Calero DO Work Phone: [facility] 03-31-2024 12:25-0500 Body temperature 98.6 [degF] Tamara Calero DO Work Phone: [facility] 03-31-2024 12:25-0500 Body weight 111.78 kg Tamara Calero DO Work Phone: [facility] 03-31-2024 12:25-0500 Diastolic blood pressure 69 mm[Hg] Tamara Calero DO Work Phone: [facility] 03-31-2024 12:25-0500 Heart rate 90 /min Tamara Calero DO Work Phone: [facility] 03-31-2024 12:25-0500 Respiratory rate 18 /min Tamara Calero DO Work Phone: [facility] 03-31-2024 12:25-0500 SaO2% (BldA) [Mass fraction] 93 % Tamara Calero DO Work Phone: [facility] 03-31-2024 12:25-0500 Systolic blood pressure 113 mm[Hg] Tamara Calero DO Work Phone: [facility] 02-12-2024 15:53-0500 Diastolic blood pressure 52 mm[Hg] Tamara Calero DO Work Phone: [facility] 02-12-2024 15:53-0500 Systolic blood pressure 83 mm[Hg] Tamara Calero DO Work Phone: [facility] 02-12-2024 15:53-0500 Body height 167.64 cm Tamara Calero DO Work Phone: [facility] 02-12-2024 15:53-0500 Body mass index (BMI) [Ratio] 39 kg/m2 Tamara Calero DO Work Phone: [facility] 02-12-2024 15:53-0500 Body temperature 97.3 [degF] Tamara Calero DO Work Phone: [facility] 02-12-2024 15:53-0500 Body weight 109.76 kg Tamara Calero DO Work Phone: [facility] 02-12-2024 15:53-0500 Heart rate 85 /min Tamara Calero DO Work Phone: [facility] 02-12-2024 15:53-0500 Respiratory rate 18 /min Tamara Calero DO Work Phone: [facility] 02-12-2024 15:53-0500 SaO2% (BldA) [Mass fraction] 96 % Tamara Calero DO Work Phone: [facility] 11-14-2023 07:30-0400 Body temperature 97.7 [degF] DESPATCH CLERK-C Josette Kelly Work Phone: [facility] 11-14-2023 07:30-0400 Diastolic blood pressure 85 mm[Hg] DESPATCH CLERK-C Josette Kelly Work Phone: [facility] 11-14-2023 07:30-0400 Heart rate 85 /min DESPATCH CLERK-C Josette Kelly Work Phone: [facility] 11-14-2023 07:30-0400 Respiratory rate 18 /min DESPATCH CLERK-C Josette Kelly Work Phone: [facility] 11-14-2023 07:30-0400 SaO2% (BldA) [Mass fraction] 95 % DESPATCH CLERK-C Josette Kelly Work Phone: [facility] 11-14-2023 07:30-0400 Systolic blood pressure 122 mm[Hg] DESPATCH CLERK-C Josette Kelly Work Phone: [facility] 11-13-2023 08:42-0400 Body weight 108.5 kg DESPATCH CLERK-C Josette Kelly Work Phone: [facility] 11-09-2023 13:07-0400 Body height 167.64 cm DESPATCH CLERK-C Josette Kelly Work Phone: [facility] 11-08-2023 23:36-0400 Body temperature 98.1 [degF] DESPATCH CLERK-C Josette Kelly Work Phone: [facility] 11-08-2023 23:36-0400 Diastolic blood pressure 78 mm[Hg] DESPATCH CLERK-C Josette Kelly Work Phone: [facility] 11-08-2023 23:36-0400 Heart rate 75 /min DESPATCH CLERK-C Josette Kelly Work Phone: [facility] 11-08-2023 23:36-0400 Respiratory rate 20 /min DESPATCH CLERK-C Josette Kelly Work Phone: [facility] 11-08-2023 23:36-0400 SaO2% (BldA) [Mass fraction] 98 % DESPATCH CLERK-C Josettecherri Talaveramer Work Phone: [facility] 11-08-2023 23:36-0400 Systolic blood pressure 148 mm[Hg] DESPATCH CLERK-C Josettecherri Talaveramer Work Phone: [facility] 11-08-2023 19:54-0400 Body height 167.64 cm DESPATCH CLERK-C Josettecherri Talaveramer Work Phone: [facility] 11-08-2023 19:54-0400 Body weight 108.5 kg DESPATCH CLERK-C Josettecherri Talaveramer Work Phone: [facility] 09-28-2023 13:36-0400 Body height 167.64 cm DESPATCH CLERK-C Josette Kelly Work Phone: [facility] 09-28-2023 13:36-0400 Body mass index (BMI) [Ratio] 36.8 kg/m2 DESPATCH CLERK-C Josette Kelly Work Phone: [facility] 09-28-2023 13:36-0400 Body temperature 98 [degF] DESPATCH CLERK-C Josette Kelly Work Phone: [facility] 09-28-2023 13:36-0400 Body weight 103.41 kg DESPATCH CLERK-C Josette Mandel Work Phone: [facility] 09-28-2023 13:36-0400 Diastolic blood pressure 67 mm[Hg] DESPATCH CLERK-C Josettecherri Talaveramer Work Phone: [facility] 09-28-2023 13:36-0400 Heart rate 104 /min DESPATCH CLERK-C Josettecherri Talaveramer Work Phone: [facility] 09-28-2023 13:36-0400 Respiratory rate 18 /min DESPATCH CLERK-C Josettecherri Talaveramer Work Phone: [facility] 09-28-2023 13:36-0400 SaO2% (BldA) [Mass fraction] 95 % DESPATCH CLERK-C Josette Talaveramer Work Phone: [facility] 09-28-2023 13:36-0400 Systolic blood pressure 107 mm[Hg] DESPATCH CLERK-C Josettecherri Talaveramer Work Phone: [facility] 08-31-2023 14:36-0400 Body height 167.64 cm DESPATCH CLERK-C Josette Mandel Work Phone: [facility] 08-31-2023 14:36-0400 Body mass index (BMI) [Ratio] 37.4 kg/m2 DESPATCH CLERK-C Josette Talaveramer Work Phone: [facility] 08-31-2023 14:36-0400 Body temperature 97.8 [degF] DESPATCH CLERK-C Josette Mandel Work Phone: [facility] 08-31-2023 14:36-0400 Body weight 105.23 kg DESPATCH CLERK-C Josettecherri Talaveramer Work Phone: [facility] 08-31-2023 14:36-0400 Diastolic blood pressure 62 mm[Hg] DESPATCH CLERK-C Josette Kelly Work Phone: [facility] 08-31-2023 14:36-0400 Heart rate 105 /min DESPATCH CLERK-C Josette Kelly Work Phone: [facility] 08-31-2023 14:36-0400 Respiratory rate 18 /min DESPATCH CLERK-C Josette Mandel Work Phone: [facility] 08-31-2023 14:36-0400 SaO2% (BldA) [Mass fraction] 95 % DESPATCH CLERK-C Josette Mandel Work Phone: [facility] 08-31-2023 14:36-0400 Systolic blood pressure 111 mm[Hg] DESPATCH CLERK-C Josette Mandel Work Phone: [facility] 08-28-2023 12:39-0400 Body height 167.64 cm DO Tamara Kelleycki Work Phone: [facility] 08-28-2023 12:39-0400 Body temperature 98.2 [degF] DO Tamara Whitei Work Phone: [facility] 08-28-2023 12:39-0400 Body weight 103.3 kg DO Tamara Kelleycki Work Phone: [facility] 08-28-2023 12:39-0400 Diastolic blood pressure 83 mm[Hg] DO Tamara Kelleycki Work Phone: [facility] 08-28-2023 12:39-0400 Heart rate 99 /min DO Tamara Kelleycki Work Phone: [facility] 08-28-2023 12:39-0400 Respiratory rate 20 /min DO Tamara Kelleycki Work Phone: [facility] 08-28-2023 12:39-0400 SaO2% (BldA) [Mass fraction] 97 % DO Tamaraar Kelleycki Work Phone: [facility] 08-28-2023 12:39-0400 Systolic blood pressure 126 mm[Hg] DO Tamara Brananthonycki Work Phone: [facility] 08-21-2023 17:24-0400 Body height 170.18 cm DO Tamara Brananthonycki Work Phone: [facility] 08-21-2023 17:24-0400 Body mass index (BMI) [Ratio] 36.1 kg/m2 DO Tamara Whitei Work Phone: [facility] 08-21-2023 17:24-0400 Body temperature 97.8 [degF] DO Tamara Kelleycki Work Phone: [facility] 08-21-2023 17:24-0400 Body weight 104.49 kg DO Tamaraar Kelleycki Work Phone: [facility] 08-21-2023 17:24-0400 Diastolic blood pressure 67 mm[Hg] DO Tamara Kelleycki Work Phone: [facility] 08-21-2023 17:24-0400 Heart rate 80 /min DO Tamara Kelleycki Work Phone: [facility] 08-21-2023 17:24-0400 Respiratory rate 18 /min DO Tamara Whitei Work Phone: [facility] 08-21-2023 17:24-0400 SaO2% (BldA) [Mass fraction] 94 % DO Tamara Kelleycki Work Phone: [facility] 08-21-2023 17:24-0400 Systolic blood pressure 101 mm[Hg] DO Tamara Kelleycki Work Phone: [facility] 04-24-2023 15:29-0500 Body height 170.18 cm DO Tamara Kelleycki Work Phone: [facility] 04-24-2023 15:29-0500 Body mass index (BMI) [Ratio] 36.1 kg/m2 DO Tamara Brananthonycki Work Phone: [facility] 04-24-2023 15:29-0500 Body weight 104.77 kg DO Tamara Kelleycki Work Phone: [facility] 04-24-2023 15:29-0500 Diastolic blood pressure 80 mm[Hg] DO Tamara Calero Work Phone: [facility] 04-24-2023 15:29-0500 Heart rate 84 /min DO Tamara Calero Work Phone: [facility] 04-24-2023 15:29-0500 Respiratory rate 14 /min DO Tamara Calero Work Phone: [facility] 04-24-2023 15:29-0500 SaO2% (BldA) [Mass fraction] 96 % DO Tamara Calero Work Phone: [facility] 04-24-2023 15:29-0500 Systolic blood pressure 123 mm[Hg] DO Tamara Calero Work Phone: [facility] 04-15-2023 10:20-0500 Body height 170.18 cm Priyanka Lemon Other [employer] Other 04-15-2023 10:20-0500 Body mass index (BMI) [Ratio] 36.33 kg/m2 Priyanka Lemon Other [employer] Other 04-15-2023 10:20-0500 Body temperature 98.5 [degF] Priyanka Lemon Other [employer] Other 04-15-2023 10:20-0500 Body weight 105.24 kg Priyanka Lemon Other [employer] Other 04-15-2023 10:20-0500 Diastolic blood pressure 102 mm[Hg] Priyanka Lemon Other [employer] Other 04-15-2023 10:20-0500 Respiratory rate 20 /min Priyanka Lemon Other [employer] Other 04-15-2023 10:20-0500 Systolic blood pressure 125 mm[Hg] Priyanka Lemon Other [employer] Other 02-24-2023 10:00-0500 Body height 170.18 cm Tamara Calero Other [facility] 02-24-2023 10:00-0500 Body mass index (BMI) [Ratio] 35.86 kg/m2 Tamara Calero Other [employer] Other 02-24-2023 10:00-0500 Body weight 103.87 kg Tamara Calero Other [facility] 02-24-2023 10:00-0500 Diastolic blood pressure 77 mm[Hg] Tamara Calero Other [facility] 02-24-2023 10:00-0500 Respiratory rate 20 /min Tamara Calero Other [employer] Other 02-24-2023 10:00-0500 Systolic blood pressure 113 mm[Hg] Tamara Calero Other [facility] 12-20-2022 12:15-0400 Body height 170.18 cm Priyanka Leomn Other [employer] Other 12-20-2022 12:15-0400 Body mass index (BMI) [Ratio] 35.36 kg/m2 Priyanka Lemon Other [employer] Other 12-20-2022 12:15-0400 Body temperature 99.1 [degF] Priyanka Lemon Other [employer] Other 12-20-2022 12:15-0400 Body weight 102.42 kg Priyanka Ion Other [employer] Other 12-20-2022 12:15-0400 Diastolic blood pressure 88 mm[Hg] Priyanka Lemon Other [employer] Other 12-20-2022 12:15-0400 Respiratory rate 18 /min Priyanka Lemon Other [employer] Other 12-20-2022 12:15-0400 SaO2% (BldA) [Mass fraction] 96 % Priyanka Lemon Other [employer] Other 12-20-2022 12:15-0400 Systolic blood pressure 133 mm[Hg] Priyanka Lemon Other [employer] Other 11-22-2022 14:30-0400 Body height 170.18 cm Tamara Kelleyjeannayesenia Other [employer] Other 11-22-2022 14:30-0400 Body mass index (BMI) [Ratio] 35.86 kg/m2 Tamara Pearsondalton Other [employer] Other 11-22-2022 14:30-0400 Body weight 103.87 kg Tamara Pearsonarielleyesenia Other [employer] Other 11-22-2022 14:30-0400 Diastolic blood pressure 74 mm[Hg] Tamara Pearsondalton Other [employer] Other 11-22-2022 14:30-0400 Respiratory rate 18 /min Tamara Pearsondalton Other [employer] Other 11-22-2022 14:30-0400 SaO2% (BldA) [Mass fraction] 95 % Tamara Calero Other [employer] Other 11-22-2022 14:30-0400 Systolic blood pressure 114 mm[Hg] Tamara Calero Other [employer] Other 08-24-2022 14:00-0400 Body height 170.18 cm Tamara Calero Other [employer] Other 08-24-2022 14:00-0400 Body mass index (BMI) [Ratio] 35.39 kg/m2 Tamara Calero Other [employer] Other 08-24-2022 14:00-0400 Body temperature 99.2 [degF] Tamara Calero Other [employer] Other 08-24-2022 14:00-0400 Body weight 102.51 kg Tamara Calero Other [employer] Other 08-24-2022 14:00-0400 Diastolic blood pressure 74 mm[Hg] Tamara Kelleyjeannayesenia Other [employer] Other 08-24-2022 14:00-0400 Respiratory rate 20 /min Tamara Calero Other [employer] Other 08-24-2022 14:00-0400 SaO2% (BldA) [Mass fraction] 94 % Tamara Whiteyesenia Other [employer] Other 08-24-2022 14:00-0400 Systolic blood pressure 114 mm[Hg] Tamaraar Calero Other [employer] [facility] [employer] Other 05-24-2022 23:57-0400 Diastolic blood pressure 62 mm[Hg] DO Tamara Whitei Work Phone: [facility] 05-24-2022 23:57-0400 Heart rate 94 /min DO Tamara Calero Work Phone: [facility] 05-24-2022 23:57-0400 Respiratory rate 16 /min DO Tamara Calero Work Phone: [facility] 05-24-2022 23:57-0400 SaO2% (BldA) [Mass fraction] 97 % DO Tamara Calero Work Phone: [facility] 05-24-2022 23:57-0400 Systolic blood pressure 122 mm[Hg] DO Tamara Calero Work Phone: [facility] 05-24-2022 20:49-0400 Body height 167.64 cm DO Tamara Calero Work Phone: [facility] 05-24-2022 20:49-0400 Body temperature 98.8 [degF] DO Tamara Calero Work Phone: [facility] 05-24-2022 20:49-0400 Body weight 98.2 kg DO Tamara Calero Work Phone: [facility] 05-18-2022 17:00-0400 Body height 170.18 cm Tamara Calero Other [employer] [facility] [employer] Other 05-18-2022 17:00-0400 Body mass index (BMI) [Ratio] 33.67 kg/m2 Tamara Calero Other [employer] Other 05-18-2022 17:00-0400 Body weight 97.52 kg Tamara Calero Other [facility] [employer] Other 05-18-2022 17:00-0400 Diastolic blood pressure 82 mm[Hg] Tamara Calero Other [employer] Other 05-18-2022 17:00-0400 Respiratory rate 20 /min Tamara Calero Other [employer] [facility] [employer] Other 05-18-2022 17:00-0400 SaO2% (BldA) [Mass fraction] 97 % Tamara Calero Other [employer] [facility] [employer] Other 05-18-2022 17:00-0400 Systolic blood pressure 136 mm[Hg] Tamara Calero Other [facility] [employer] Other 05-15-2022 11:38-0400 Body temperature 97.6 [degF] DO Tamara Calero Work Phone: [facility] 05-15-2022 11:38-0400 Diastolic blood pressure 88 mm[Hg] DO Tamara Calero Work Phone: [facility] 05-15-2022 11:38-0400 Heart rate 73 /min DO Tamara Calero Work Phone: [facility] 05-15-2022 11:38-0400 SaO2% (BldA) [Mass fraction] 96 % DO Tamara Calero Work Phone: [facility] 05-15-2022 11:38-0400 Systolic blood pressure 133 mm[Hg] DO Tamara Calero Work Phone: [facility] 05-15-2022 07:46-0400 Respiratory rate 16 /min DO Tamara Calero Work Phone: [facility] 05-11-2022 14:05-0500 Body height 167.64 cm DO Tamara Brananthonycki Work Phone: [facility] 05-11-2022 00:58-0500 Body weight 94.34 kg DO Tamara Brananthonycki Work Phone: [facility] 05-11-2022 00:00-0500 Diastolic blood pressure 82 mm[Hg] DO Tamara Brananthonycki Work Phone: [facility] 05-11-2022 00:00-0500 Heart rate 74 /min DO Tamara Brananthonycki Work Phone: [facility] 05-11-2022 00:00-0500 Respiratory rate 18 /min DO Tamara Brananthonycki Work Phone: [facility] 05-11-2022 00:00-0500 SaO2% (BldA) [Mass fraction] 96 % DO Taamra Kelleycki Work Phone: [facility] 05-11-2022 00:00-0500 Systolic blood pressure 170 mm[Hg] DO Tamara Brananthonycki Work Phone: [facility] 05-10-2022 21:11-0500 Body height 167.64 cm DO Tamara Brananthonycki Work Phone: [facility] 05-10-2022 21:11-0500 Body temperature 98.5 [degF] DO Tamara Brananthonycki Work Phone: [facility] 05-10-2022 21:11-0500 Body weight 94.4 kg DO Tamara Brananthonycki Work Phone: [facility] 08-20-2021 12:30-0400 Body height 170.18 cm Tamara Kelleycki Other [employer] Other 08-20-2021 12:30-0400 Body mass index (BMI) [Ratio] 30.07 kg/m2 Tamara Calero Other [employer] Other 08-20-2021 12:30-0400 Body temperature 98.2 [degF] Tamara aClero Other [employer] Other 08-20-2021 12:30-0400 Body weight 87.09 kg Tamara Calero Other [employer] Other 08-20-2021 12:30-0400 Diastolic blood pressure 72 mm[Hg] Tamara Calero Other [employer] Other 08-20-2021 12:30-0400 Respiratory rate 18 /min Tamara Calero Other [employer] Other 08-20-2021 12:30-0400 SaO2% (BldA) [Mass fraction] 99 % Tamara Calero Other [employer] Other 08-20-2021 12:30-0400 Systolic blood pressure 118 mm[Hg] Tamara Calero Other [employer] Other 08-10-2021 14:48-0400 Body height 167.6 cm [facility] 08-10-2021 14:48-0400 Body mass index (BMI) [Ratio] 32[facility]77 [facility] 14:48-0400 Body temperature 97.7 [degF] [facility] 08-10-2021 14:48-0400 Body weight 92.08 kg [facility] 08-10-2021 14:48-0400 Diastolic blood pressure 62 mm[Hg] [facility] 06-07-2022 14:48-0400 Heart rate 81 /min [facility] [facility] 08-10-2021 14:48-0400 Respiratory rate 16 /min [facility] 08-10-2021 14:48-0400 SaO2% (BldA) [Mass fraction] 100 % [facility] 08-10-2021 14:48-0400 Systolic blood pressure 138 mm[Hg] [facility] 08-04-2021 05:03-0400 Body temperature 98.49 [degF] Dennis Sarmiento MD Work Phone: [facility] 08-04-2021 05:03-0400 Diastolic blood pressure 48 mm[Hg] Dennis Sarmiento MD Work Phone: [facility] 08-04-2021 05:03-0400 Heart rate 70 /min Dennis Sarmiento MD Work Phone: [facility] 08-04-2021 05:03-0400 Respiratory rate 16 /min Dennis Sarmiento MD Work Phone: [facility] 08-04-2021 05:03-0400 SaO2% (BldA) [Mass fraction] 97 % Dennis Sarmiento MD Work Phone: [facility] 08-04-2021 05:03-0400 Systolic blood pressure 110 mm[Hg] Dennis Sarmiento MD Work Phone: [facility] 07-31-2021 02:14-0400 Body height 177.8 cm Dennis Sarmiento MD Work Phone: [facility] 07-31-2021 02:14-0400 Body mass index (BMI) [Ratio] 30.42 kg/m2 Dennis Sarmiento MD Work Phone: [facility] 07-31-2021 02:14-0400 Body weight 96.16 kg Dennis Sarmiento MD Work Phone: [facility] 07-31-2021 01:15-0400 SaO2% (BldA) [Mass fraction] 97.8 % Dennis Sarmiento MD Work Phone: [employer] 07-30-2021 20:20-0400 SaO2% (BldA) [Mass fraction] 98.6 % Dennis Sarmiento MD Work Phone: [employer] 07-30-2021 17:53-0400 SaO2% (BldA) [Mass fraction] 98.5 % Dennis Sarmiento MD Work Phone: [employer] 07-30-2021 17:00-0400 SaO2% (BldA) [Mass fraction] 98.1 % Dennis Sarmiento MD Work Phone: [employer] 07-15-2021 12:58-0400 Body height 179.1 cm Marcella Luevano APRN-POULTRY HATCHERY MAN Work Phone: [employer] 07-15-2021 12:58-0400 Body mass index (BMI) [Ratio] 29.99 kg/m2 Marcella Luevano APRN-POULTRY HATCHERY MAN Work Phone: [employer] 07-15-2021 12:58-0400 Body temperature 97 [degF] Marcella Luevano APRN-OSCAR Work Phone: [employer] 07-15-2021 12:58-0400 Body weight 96.16 kg Marcella Luevano APRN-OSCAR Work Phone: [employer] 07-15-2021 12:58-0400 Diastolic blood pressure 62 mm[Hg] Marcella Luevano APRN-POULTRY HATCHERY MAN Work Phone: [employer] 07-15-2021 12:58-0400 Heart rate 75 /min Marcella Luevano APRN-POULTRY HATCHERY MAN Work Phone: [employer] 07-15-2021 12:58-0400 Respiratory rate 16 /min Marcella Luevano APRN-POULTRY HATCHERY MAN Work Phone: [employer] 07-15-2021 12:58-0400 SaO2% (BldA) [Mass fraction] 96 % Marcella Belcastro ELECTORATE OFFICER-POULTRY HATCHERY MAN Work Phone: [employer] 07-15-2021 12:58-0400 Systolic blood pressure 117 mm[Hg] Marcella Luevano ELECTORATE OFFICER-POULTRY HATCHERY MAN Work Phone: [employer] 06-16-2021 11:35-0400 Diastolic blood pressure 77 mm[Hg] Leobardo Barry MD Work Phone: [employer] 06-16-2021 11:35-0400 Heart rate 73 /min Leobardo Barry MD Work Phone: [employer] 06-16-2021 11:35-0400 Respiratory rate 12 /min Leobardo Barry MD Work Phone: [employer] 06-16-2021 11:35-0400 SaO2% (BldA) [Mass fraction] 99 % Leobardo Barry MD Work Phone: [employer] 06-16-2021 11:35-0400 Systolic blood pressure 117 mm[Hg] Leobardo Barry MD Work Phone: [employer] 06-16-2021 11:05-0400 Body temperature 97.2 [degF] Leobardo Barry MD Work Phone: [employer] 06-11-2021 14:04-0400 Body height 168.9 cm Leigh Ann Teagan ELECTORATE OFFICER-POULTRY HATCHERY MAN Work Phone: [employer] 06-11-2021 14:04-0400 Body mass index (BMI) [Ratio] 33.39 kg/m2 Leigh Ann Teagan ELECTORATE OFFICER-[employer]LTRY HATCHERY MAN Work Phone: [employer] 06-11-2021 14:04-0400 Body weight 95.25 kg Leigh Ann Teagan ELECTORATE OFFICER-[employer]LTRY HATCHERY MAN Work Phone: [employer] 06-07-2021 11:45-0400 Body height 170.18 cm Tamara Calero Other [employer] Other 06-07-2021 11:45-0400 Body mass index (BMI) [Ratio] 32.57 kg/m2 Tamara Calero Other [employer] Other 06-07-2021 11:45-0400 Body weight 94.35 kg Tamara Calero Other [employer] Other 06-07-2021 11:45-0400 Diastolic blood pressure 69 mm[Hg] Tamara Calero Other [employer] Other 06-07-2021 11:45-0400 Respiratory rate 18 /min Tamara Calero Other [employer] Other 06-07-2021 11:45-0400 SaO2% (BldA) [Mass fraction] 98 % Tamara Calero Other [employer] Other 06-07-2021 11:45-0400 Systolic blood pressure 113 mm[Hg] Tamara Calero Other [employer] Other Encounters Encounter Date Encounter Type Care Provider Facility Start: 05-15-2024 ambulatory Tamara Abdias Facil ity:[facility] Start: 03-31-2024 End: 03-31-2024 ambulatory Tamara Branarielleyesenia DO Work Phone: [facility] Work Phone: Start: 03-31-2024 End: 03-31-2024 Patient encounter procedure Tamara Abdias DO Work Phone: [facility] Work Phone: Start: 03-15-2024 End: 03-15-2024 [facility] Start: 03-14-2024 Registered Recurring Tamara peoples DO Work Phone: [facility] Start: 02-12-2024 End: 02-12-2024 Patient encounter procedure Tamara Calero DO Work Phone: [facility] Physician [facility] Work Phone: Start: 11-09-2023 Non-patient / Non-visit DESPATCH CLERK-C P jeni Kelly Work Phone: [facility] Physician [facility] Work Phone: Start: 11-08-2023 End: 11-14-2023 Evaluation and management of inpatient DESPATCH CLERK-C Josette Kelly Work Phone: [address] Work Phone: Start: 11-08-2023 Registered Recurring DESPATCH CLERK-C Anika la Kelly Work Phone: [facility] [employer] Start: 10-25-2023 Registered Recurring DESPATCH CLERK-C Anika la Kelly Work Phone: [facility] [employer] Start: 09-28-2023 End: 09-28-2023 ambulatory DESPATCH CLERK-C Josette Racheal Kelly Work Phone: [facility] Work Phone: Start: 09-28-2023 End: 09-28-2023 Patient encounter procedure DESPATCH CLERK-C Josette Kelly Work Phone: [facility] [place] Work Phone: Start: 09-27-2023 Registered Recurring DESPATCH CLERK-C Anika la Kelly Work Phone: [facility] [employer] Start: 08-31-2023 End: 08-31-2023 ambulatory DESPATCH CLERK-C Josette Racheal Kelly Work Phone: [facility] Work Phone: Start: 08-31-2023 End: 08-31-2023 Patient encounter procedure DESPATCH CLERK-C Josette Kelly Work Phone: [facility] [place] Work Phone: Start: 08-31-2023 End: 08-31-2023 ambulatory [facility] Start: 08-30-2023 Registered Recurring DESPATCH CLERKLatrell Montana Work Phone: [facility] [employer] Start: 08-28-2023 End: 08-28-2023 Emergency department patient visit DO [facility] Start: 08-21-2023 End: 08-21-2023 ambulatory DO Tamara Calero Work Phone: [facility] Work Phone: Start: 08-21-2023 End: 08-21-2023 Patient encounter procedure DO Tamara Calero Work Phone: [facility] Physician [facility] Work Phone: Start: 08-03-2023 Registered Recurring DO Stanford Calero Work Phone: [facility] Start: 07-03-2023 End: 07-03-2023 ambulatory [facility] Start: 07-03-2023 Encounter for gynecological examination (general) (routine) without abnormal findings [facility] Start: 06-28-2023 End: 06-28-2023 ambulatory [facility] Start: 05-18-2023 End: 05-18-2023 ambulatory [facility] Start: 04-24-2023 End: 04-24-2023 ambulatory DO Tamara Calero Work Phone: [facility] Work Phone: Start: 04-24-2023 End: 04-24-2023 Patient encounter procedure DO Tamara Calero Work Phone: [facility] Work Phone: Start: 04-15-2023 End: 04-15-2023 ambulatory Priyanka Lemon Other [employer] Other Start: 04-15-2023 Office outpatient vi sit 15 minutes Priyanka Lemon [facility] Start: 02-24-2023 End: 02-24-2023 ambulatory Tamara Abdias Other [employer] Other Start: 02-24-2023 Office outpatient vi sit 25 minutes Tamara Calero [facility] Start: 02-24-2023 End: 02-24-2023 Patient encounter procedure DO Tamara Abdias Work Phone: [facility] Work Phone: Start: 02-01-2023 Registered Recurring DO Stanford rai Christopheryesenia Work Phone: [facility]- [employer] Start: 12-20-2022 End: 12-20-2022 ambulatory Priyanka Lemon Other [employer] Other Start: 12-20-2022 Office outpatient vi sit 25 minutes Priyanka Lemon [facility] Start: 12-05-2022 End: 12-05-2022 ambulatory Tamara Abdias Other [employer] Other Start: 12-05-2022 Telephone encounter Tamara White i [employer] Start: 11-22-2022 End: 11-22-2022 ambulatory Tamara Abdias Other [employer] Other Start: 11-22-2022 Office outpatient vi sit 25 minutes Tamara Calero [facility] Start: 11-14-2022 End: 11-14-2022 ambulatory Tamara Calero Other [employer] Other Start: 11-14-2022 Telephone encounter Tamara White i [facility] Start: 11-02-2022 End: 11-02-2022 ambulatory Tamara Calero Other [employer] Other Start: 11-02-2022 Telephone encounter Tamara White i [facility] Start: 08-24-2022 End: 08-24-2022 ambulatory Tamara Calero Other [employer] Other Start: 08-24-2022 Encounter for other specified special examinations Tamara Calero [facility] Start: 08-24-2022 Periodic preventive med est patient 40-64yrs Tamara Calero [facility] Start: 08-02-2022 Letter encounter Dennis [facility]oy MD [facility] Start: 05-30-2022 End: 05-30-2022 ambulatory Tamara Calero Other [employer] Other Start: 05-30-2022 Telephone encounter Tamara White i [facility] Start: 05-24-2022 Evaluation and management of inpatient DO Tamara Calero Work Phone: [facility] Work Phone: Start: 05-24-2022 End: 05-24-2022 ambulatory Tamara Calero Other [employer] Other Start: 05-24-2022 Telephone encounter Tamara White i [facility] Start: 05-18-2022 End: 05-18-2022 ambulatory Tamara Calero Other [employer] Other Start: 05-18-2022 Office outpatient vi sit 25 minutes Tamara Calero [facility] Start: 05-11-2022 End: 05-11-2022 ambulatory Tamara Calero Other [employer] Other Start: 05-11-2022 Telephone encounter Tamara White i [facility] Start: 05-10-2022 End: 05-15-2022 Evaluation and management of inpatient DO Tamara Calero Work Phone: [facility] Work Phone: Start: 05-05-2022 Letter encounter Dennis godoy MD Work Phone: [facility] Start: 03-15-2022 End: 03-15-2022 ambulatory Tamara Calero Other [employer] Other Start: 03-15-2022 Office outpatient vi sit 15 minutes Tamara Calero [facility] Start: 03-13-2022 End: 03-13-[address] DOCTOR SAUNDERS Facility: Start: 02-14-2022 End: 02-14-2022 Telemedicine consultation with patient Dennis Sarmiento MD Work Phone: [facility] Oncology Surgical Comment on above: NO SHOW (Primary Dx) Start: 02-14-2022 ambulatory DENNIS SHEA Facil ity:[facility] Start: 02-01-2022 Letter encounter Dennis godoy MD Work Phone: [facility] Start: 11-15-2021 End: 11-15-2021 ambulatory Tamara Calero Other [employer] Other Start: 11-15-2021 Telephone encounter Tamara White i [facility] Start: 09-02-2021 ambulatory Nicole Garcia RN [facility] Oncology Surgical Start: 09-02-2021 Documentation procedure Nicole byers RN [facility] Start: 08-24-2021 End: 08-25-2021 ambulatory SELF PATIENT Facility:[facility] Start: 08-20-2021 End: 08-20-2021 ambulatory Tamara Calero Other [employer] Other Start: 08-20-2021 Encounter for genera l adult medical examination without abnormal findings Tamara Calero [facility] Start: 08-20-2021 Periodic preventive med est patient 40-64yrs Tamara Calero [facility] Start: 08-16-2021 End: 08-16-2021 Telemedicine consultation with patient Dennis Sarmiento MD Work Phone: [facility] Oncology Surgical Comment on above: Liver cyst (Primary Dx) Start: 08-16-2021 ambulatory [facility] Facility: [facility] Start: 08-10-2021 End: 08-10-2021 Office outpatient visit 25 minutes [facility] Resident [facility] Surgery General Comment on above: Postoperative follow -up (Primary Dx); Body mass index (BMI) 32.0-32.9, adult Start: 08-02-2021 Letter encounter Debo garza ELECTORATE OFFICER-[employer]LTRY HATCHERY MAN Work Phone: [facility] Start: 08-01-2021 Letter encounter Debo garza ELECTORATE OFFICER-[employer]LTRY HATCH[employer] MAN Work Phone: [facility] Surgery General Start: 07-30-2021 End: 07-30-2021 Subsequent hospital visit by physician Dennis Sarmiento MD Work Phone: [facility] Radiology Comment on above: Arrived Start: 07-30-2021 Letter encounter Debo garza ELECTORATE OFFICER-[employer] HATCH[employer] MAN Work Phone: [facility] Radiology Start: 07-30-2021 End: 08-04-2021 Evaluation and management of inpatient Dennis Sarmiento MD Work Phone: Inpatient 8A Comment on above: Liver cyst (Primary Dx); Cyst of gallbladder; Postoperative pain Start: 07-16-2021 Telephone encounter Leandra hernandez [facility] Work Phone: [facility] Comment on above: Anemia; Consult with specialist Start: 07-15-2021 End: 07-16-2021 Office outpatient new 45 minutes Marcella Luevano ELECTORATE OFFICER-P[employer]LTRY HATCHERY MAN Work Phone: [facility] Pre-Surgical Evaluation Comment on above: Preop testing (Prima ry Dx); Iron deficiency anemia, unspecified iron deficiency anemia type; Body mass index (BMI) 29.0-29.9, adult Start: 07-15-2021 End: 07-16-2021 Patient encounter status Marcella Luevano ELECTORATE OFFICER-[employer]LTRY HATCH[employer] MAN Work Phone: [facility] Pre-Surgical Evaluation Start: 07-07-2021 Letter encounter Dennis nuñez MD Work Phone: [facility] Surgery General Start: 07-06-2021 Admission to [facility] Dennis Sarmiento MD Work Phone: [facility] Surgery General Start: 07-02-2021 End: 07-02-2021 ambulatory Tamara Calero Other [employer] Other Start: 07-02-2021 Telephone encounter Tamara White i [facility] Start: 06-16-2021 End: 06-16-2021 Subsequent hospital visit by physician Leobardo Barry MD Work Phone: [facility] Comment on above: Bile duct obstructio n; 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 Start: 06-14-2021 End: 06-15-[address] DOCTOR ELKINS Facility: Start: 06-11-2021 End: 06-11-2021 Telephone encounter Leigh Ann Candelaria ELECTORATE OFFICER-[employer] HATCH[employer] MAN Work Phone: [facility] Pre Surgical Evaluation Comment on above: Arrived Start: 06-07-2021 End: 06-07-2021 ambulatory Tamara Abdias Other [employer] Other Start: 06-07-2021 Office outpatient vi sit 25 minutes Tamara Calero [facility] Start: 04-16-2021 End: 04-22-2021 Evaluation and management of inpatient DR DOCTOR ELKINS Facility:[facility] Start: 03-19-2021 End: 03-19-[address] DOCTOR ELKINS Facility:[facility] Start: 03-11-2018 End: 03-11-2018 Emergency department patient visit DIPESH PETAR [facility] Procedures Date Procedure Procedure Detail Performing Clinician Start: 11-08-2023 Urine culture DESPATCH CLERK-Tera Mandel Work Phone: Start: 05-24-2022 SARS Antigen (LFIA) DO Tamara Abdias Work Phone: Start: 05-10-2022 Urine culture DO Tamara Christopheryesenia Work Phone: Start: 08-03-2021 End: 08-03-2021 Assay of magnesium Madeleine Kit Mauro Hooks MD Work Phone: Start: 08-03-2021 Hepatic function panel Madeleine Kit Mauro Hooks MD Work Phone: Start: 08-02-2021 Hepatic function panel Madeleine Kit Mauro Hooks MD Work Phone: Start: 08-02-2021 End: 08-02-2021 Assay of magnesium Madeleine Kit Mauro Hooks MD Work Phone: Start: 08-01-2021 Ct abdomen & pelvis w/contrast material Ralph Carrasco MD Work Phone: Start: 08-01-2021 Thromboplastin time partial plasma/whole blood Madeleine Kit Mauro Hooks MD Work Phone: Start: 08-01-2021 Hepatic function panel Madeleine Kit Mauro Hooks MD Work Phone: Start: 08-01-2021 End: 08-01-2021 Assay of magnesium Madeleine Kit Mauro Hooks MD Work Phone: Start: 07-31-2021 Hepatic function panel Madeleine Hooks MD Work Phone: Start: 07-31-2021 End: 07-31-2021 Assay of magnesium Madeleine Hooks MD Work Phone: Start: 07-31-2021 Assay [...] cardenas MD Work Phone: Start: 07-30-2021 FFP Mahamedilya Bermudez ELECTORATE OFFICER-ANIMAL HUSBANDRY TEACHER Work Phone: Start: 07-30-2021 PLASMA STATUS Mahamedilya Bermudez ELECTORATE OFFICER-ANIMAL HUSBANDRY TEACHER Work Phone: Start: 07-30-2021 RED BLOOD CELL COMPONENT Adrian lopez ELECTORATE OFFICER-ANIMAL HUSBANDRY TEACHER Work Phone: Start: 07-30-2021 RED BLOOD CELL UNIT STATUS Adrian calle ELECTORATE OFFICER-ANIMAL HUSBANDRY TEACHER Work Phone: Start: 07-30-2021 End: 07-30-2021 Assay of lactate Adrian Bermudez ELECTORATE OFFICER-ANIMAL HUSBANDRY TEACHER Work Phone: Start: 07-30-2021 End: 07-30-2021 Blood gases any combination ph pco2 po2 co2 hco3 Adrian Bermudez ELECTORATE OFFICER-ANIMAL HUSBANDRY TEACHER Work Phone: Start: 07-30-2021 End: 07-30-2021 Carboxyhemoglobin measurement Felix Bermudez ELECTORATE OFFICER-ANIMAL HUSBANDRY TEACHER Work Phone: Start: 07-30-2021 End: 07-30-2021 Transfusion of packed red blood cells Adrian Bermudez ELECTORATE OFFICER-ANIMAL HUSBANDRY TEACHER Work Phone: Start: 07-30-2021 Cul bact xcpt urine blood/stool aerobic isol Dennis Sarmiento MD Work Phone: Start: 07-30-2021 Cytology examination - general Dennis Sarmiento MD Work Phone: Start: 07-30-2021 RBC leukocytes reduced Adrian byers ELECTORATE OFFICER-ANIMAL HUSBANDRY TEACHER Work Phone: Start: 07-30-2021 RED BLOOD CELL UNIT STATUS [facility] Work Phone: Start: 07-30-2021 End: 07-30-2021 EXPLORATION, COMMON BILE DUCT Dennis Waldron MD Work Phone: Start: 07-30-2021 End: 07-30-2021 LAPAROSCOPY, DIAGNOSTIC Dennis godoy MD Work Phone: Start: 07-30-2021 Urine test visual color cmprsn meths Dennis Sarmiento MD Work Phone: Start: 07-30-2021 Blood typing, ABO, Rho(D) and RBC antibody screening Marcella Luevano ELECTORATE OFFICER-POULTRY HATCHERY MAN Work Phone: Start: 07-15-2021 Assay of ferritin Marcella Luevano ELECTORATE OFFICER- [employer] HATCH[employer] MAN Work Phone: Start: 06-16-2021 Ercp dx collection specimen brushing/washing Leobardo Barry MD Work Phone: Start: 06-16-2021 Urine test visual color cmprsn meths Leobardo Barry MD Work Phone: Start: 04-20-2021 Introduction of Nutritional Substance into Central Vein, Percutaneous Approach DR DOCTOR ELKINS Start: 04-19-2021 Insertion of Infusion Device into Upper Vein, Percutaneous Approach DR DOCTOR ELKINS Start: 03-11-2018 RAPID INFLUENZA A/B ANTIGENS DIPESH MORRIS Plan of Treatment Date Care Activity Detail Author Start: 03-22-2029 [facility] Start: 01-29-2028 Shingles (RZV) Vaccine (1 of 2) Shingles (RZV) Vaccine (1 of 2) [facility] Start: 11-14-2023 [facility] Start: 11-09-2023 Hospital admission [facility] Start: 11-08-2023 [facility] Start: 11-08-2023 Bacteria identified in Urine by Culture [facility] Start: 08-03-2022 Basic metabolic 2000 panel - Serum or Plasma [facility] Start: 08-02-2022 Basic metabolic 2000 panel - Serum or Plasma Basic Met[facility] Start: 08-01-2022 Basic metabolic 2000 panel - Serum or Plasma Basic Met[facility] Start: 07-31-2022 Basic metabolic 2000 panel - Serum or Plasma Basic Metabolic Panel [facility] Start: 05-25-2022 End: 05-25-2022 [facility] Start: 05-25-2022 [facility] admission [facility] Start: 05-15-2022 [facility] Start: 05-11-2022 [facility] Start: 05-11-2022 Hospital admission [facility] Start: 05-11-2022 [facility] Start: 05-10-2022 Bacteria identified in Urine by Culture Urine Culture [facility] Start: 04-28-2022 Basic metabolic 2000 panel - Serum or Plasma Basic Metabolic Panel [facility] Start: 04-23-2022 Hemoglobin A1c measurement Hemoglobin A1C [facility] Start: 02-14-2022 End: 02-14-2022 Telemedicine consultation with patient 02/14/2022 Telemedicine Oncology Surgery Dennis Sarmiento MD [address] [place] [address] [facility] Start: 12-04-2021 Influenza vaccination Influenza Vaccine (#1) [facility] Start: 08-24-2021 End: 08-24-2021 Patient encounter procedure 08/24/2021 Office Visit General Surgery [facility] Surgery General Start: 08-16-2021 End: 08-16-2021 Evaluation and management of inpatient 08/16/2021 Telemedicine Oncology Surgery Dennis Sarmiento MD [address] [place] [id number] [facility] Start: 08-16-2021 End: 08-16-2021 Telemedicine consultation with patient 08/16/2021 Telemedicine Oncology Surgery Dennis Sarmiento MD [address] [place] [id number] [facility] Start: 08-10-2021 End: 08-10-2021 Patient encounter procedure 08/10/2021 Office Visit General Surgery [facility] Surgery General Start: 07-30-2021 End: 07-30-2021 Admission to same day surgery center 07/30/2021 Surgery General Surgery Dennis Sarmiento MD [address] [place] [phone] HEPATECTOMY, PARTIAL, LOBECTOMY [facility] Main OR Comment on above: HEPATECTOMY, PARTIAL, [...] Hospital Encounter General Surgery Dennis Sarmiento MD [address] [place] [id number] [facility] Main OR Start: 07-15-2021 End: 07-15-2021 Patient encounter procedure 07/15/2021 Office Visit Presurgical Evaluation Claudia Luevanoah, ELECTORATE OFFICER-POULTRY HATCHERY MAN [address] [place] [address] [place] [address] [facility] Pre-Surgical Evaluation Start: 07-07-2021 End: 07-07-2021 Evaluation and management of inpatient 07/07/2021 Office Visit Internal Medicine Jennifer Khan MD [address] [place] [id number] [facility] [employer] Start: 06-22-2021 End: 06-22-2021 Patient encounter procedure 06/22/2021 Office Visit General Surgery Dennis Sarmiento MD [address] [place] [id number] [facility] Surgery General Start: 06-16-2021 End: 06-16-2021 Admission to same day surgery center 06/16/2021 Surgery Gastroenterology Leobardo Barry MD [address] [place] [address] [place] [address] ERCP, GENERAL ANESTHESIA [facility] Comment on above: ERCP, GENERAL ANESTHESIA Start: 06-16-2021 End: 06-16-2021 ERCP, GENERAL ANESTHESIA [facility] Start: 06-16-2021 Subsequent hospital visit by physician 06/16/2021 Hospital Encounter Gastroenterology Leobardo Barry MD [address] [place] [address] [place] [address] [facility] Start: 2018 Screening for malignant neoplasm of breast Mammography [facility] Start: 1999 Screening for malignant neoplasm of cervix Pap Smear [facility] Start: 01-29-1996 Hepatitis C screening Hepatitis C Antibody [facility] Start: 01-29-1984 Pneumococcal vaccination [facility] Start: 1983 COVID-19 Vaccine (#1) COVID-19 Vaccine (#1) [facility] Start: 1983 COVID-19 Vaccine (1) COVID-19 Vaccine (1) [facility] Start: 1978 COVID-19 Vaccine (#1) COVID-19 Vaccine (#1) [facility] Calculated LDL cholesterol level [facility] Cholesterol.total/Ch o lesterol in HDL [Mass Ratio] in Serum or Plasma [facility] Culture bacterial an y source anaerobic iso&id ANAEROBIC CULTURE, MISC Microbiology Routine Cyst of gallbladder Liver cyst 07/30/2021 4:19 PM EDT [facility] Culture tubercle/oth acid-fast bacilli any isol AFB CULTURE/SMEAR Microbiology Routine Cyst of gallbladder Liver cyst 07/30/2021 4:19 PM EDT [facility] ERCP, GENERAL ANESTHESIA ERCP, GENERAL ANESTHESIA Cyst [...] gallbladder Liver cyst [employer] Patient Education [facility] Work Phone: Patient referral [facility] Work Phone: End: 06-16-2021 Surgical pathology procedure SURGICAL GI ANATOMIC PATHOLOGY Anatomic Pathology Routine One time for 1 Occurrences starting 06/16/2021 until 06/16/2021 [employer] [facility] Work Phone: Comment on above: One time for 1 Occurrences starting 06/04 until 06/16/2021 Surgical pathology procedure [facility] [employer] [facility] Work Phone: Comment on above: Release Upon Ordering for 1 Occurrences starting 07/30/2021, 1 completed VLDL cholesterol measurement [facility] Immunizations Immunization Date Immunization Notes Care Provider Zenaida recio 04-23-2021 Hemoglobin A1C Leigh Ann romo ELECTORATE OFFICER-[facility] Work Phone: [facility] 03-22-2019 tetanus toxoid, redu ramona diphtheria toxoid, and acellular pertussis vaccine, adsorbed Leigh Ann Candelaria ELECTORATE OFFICER-[facility] Work Phone: [facility] 01-29-2019 influenza, injectabl e, quadrivalent, preservative free Leigh Ann Candelaria ELECTORATE OFFICER-[facility] Work Phone: [facility] 01-29-2019 influenza virus vacc ine, unspecified formulation Dennis Sarmiento MD Work Phone: [facility] Payers Date Payer Category Payer Self-pay [id number] 2022 Medicaid [id number] 2020 Medicaid [employer] [id number] 2020-Present [phone] [address] [place] [address] Medicaid HMO [id number] 2016 Unknown [id number] 1978 Unknown [id number] 1978 Unknown [id number] [id number] 1978 Unknown [id number] 2.840.1.918845.3.579.2.593 1978 Unknown [id number] 2.16.840.1.457965.3.579.2.593 1978 Unknown [id number] 2.16.840.1.100689.3.579.2.593 1978 Unknown [id number] 2.16.840.1.327454.3.579.2.732 1978 Unknown [id number] 2.16.840.1.485096.3.579.2.732 1978 Unknown [id number] 2.16.840.1.976451.3.579.2.732 1978 Unknown [id number] 2.16.840.1.665665.3.579.2.1286 1978 Unknown [id number] 2.16.840.1.992857.3.579.2.1286 1978 Unknown [id number] 2.16.840.1.356025.3.579.2.1286 1959 Unknown [id number] [id number] Unknown [id number] 2.16.840.1.405454.3.579.2.531 Unknown [id number] 2.16.840.1.450151.3.579.2.531 Unknown [id number] Social History Date Type Detail Facility Start: 04-02-2021 End: 06-11-2021 Tobacco smoking status MDIS Smokes tobacco daily [facility] History of tobacco use Cigarette Smoker [facility] Start: 04-02-2021 End: 06-11-2021 Cigarettes smoked current (pack per day) - Reported 0.75 [facility] Start: 04-02-2021 End: 06-11-2021 Tobacco use and exposure Smokeless tobacco non-user [facility] Start: 06-11-2021 End: 02-14-2022 Alcohol intake Ex-drinker (finding) [facility] Start: 04-24-2021 End: 08-03-2021 History SDOH Food Worry 1 [facility] Start: 04-24-2021 End: 08-03-2021 History SDOH Transport Med 2 [facility] Start: 1980 Sex Assigned At Not on file [facility] Start: 05-15-2021 End: 06-14-2021 Exposure to SARS-CoV-2 (event) Not sure [facility] Start: 08-03-2021 History SDOH Financial 5 [facility] Start: 03-06-1994 Sex Assigned At N [place] Other Start: 05-10-2022 End: 11-09-2023 Tobacco smoking status NHIS Smoker (finding) [facility] Start: 1980 Sex Assigned At Female F [facility] Start: 03-31-2024 Sex Female (finding) [facility] NEGATED: Highlighted row [facility] Goals Date Patient Goal Desired Activity /State Functional Status Date Assessment Result Facility 11-14-2023 Functional status Patient at Baseline [facility] Work Phone: 05-15-2022 Functional status Patient at Baseline [facility] Work Phone: Mental Status Date Assessment Result Facility 11-14-2023 Cognitive function Cognitive Sta tus Patient at Baseline [facility] Work Phone: 05-15-2022 Cognitive function Cognitive Sta tus Patient at Baseline [facility] Work Phone: Clinical Notes 06-07-2021 to 03-15-2024 Note Date & Type Note Facility 03-15-2024 Note Cardiology Clinic No te HPI: Shahla Arias is a 44 y.o. 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 She presents today for follow up. She was recently at [facility] for acute hypotension, IAM, and ECG changes, thought to be secondary to UTI. She was seen as inpatient consult by Dr. Peng. Since discharge she has only been taking Benicar PRN for SBP > 130. Denies chest pain. Says she's been having severe anxiety and has been having palpitations. Ativan has been helping with both of these. Stress test was ordered previously to evaluate accessory pathway given WPW. She did not have this done. Cardiology ROS: Review of Systems All other systems reviewed and are negative. Past Medical History She has a past medical history of Alcohol abuse, GERD (gastroesophageal reflux disease), Hypertension, PAD (peripheral artery disease) (CMS/HCC), Palpitations, and Raynaud's disease. Surgical History She has a past surgical history that includes Carpal tunnel release; Cholecystectomy; Cyst Removal; Cardiac catheterization; and section, classic. Social History She reports that she has been smoking cigarettes. She has never used smokeless tobacco. She reports that she does not currently use alcohol. No history on file for drug use. Family History Family History Problem Relation Name Age of Onset Hypertension Mother Cancer Mother Stroke Mother Medications Current Outpatient Medications on File Prior to Visit Medication Sig Dispense Refill aspirin 81 mg EC tablet 1 tablet Orally Once a day atorvastatin (Lipitor) 40 mg tablet Take 40 mg by mouth in the morning. cholecalciferol (Vitamin D-3) 50 MCG (2000 UT) tablet Take by mouth in the morning. clopidogrel (Plavix) 75 mg tablet Take 75 mg by mouth in the morning. gabapentin (Neurontin) 600 mg tablet Take 600 mg by mouth in the morning, afternoon, and at bedtime. hydrOXYzine pamoate (Vistaril) 50 mg capsule 50 mg three times daily. levomilnacipran (Fetzima) 80 mg extended release capsule Take 120 mg by mouth in the morning. mirtazapine (Remeron) 7.5 mg tablet 1 tablet at bedtime Orally for 30 days naltrexone ER (VivitroL) injection 1 injection Intramuscular once monthly for 30 days OLANZapine (ZyPREXA) 5 mg tablet take 1 tablet by mouth three times a day if needed for AGITATION olmesartan-hydrochlorothiazide (BENIcar HCT) 20-12.5 mg tablet Take 1 tablet by mouth in the morning. omeprazole (PriLOSEC) [address] capsule Take 40 mg by mouth in the morning and at bedtime. traZODone (Desyrel) 100 mg tablet Take 200 mg by mouth. No current facility-administered medications on file prior to visit. Allergies Ciprofloxacin, Metronidazole, and Penicillins Physical Exam VITAL SIGNS: There were no vitals taken for this visit. Constitutional: Well developed, Well nourished, No acute distress, Non-toxic appearance. HENT: Normocephalic, Atraumatic, Bilateral external ears have normal appearance, Nose appears normal, nares are patent. Eyes: PERRLA, EOMI, Conjunctiva normal, No discharge. Neck: Normal range of motion, No tenderness, Supple, No stridor. No cervical lymphadenopathy noted. Cardiovascular: Normal heart rate, Normal rhythm, No murmurs, No rubs, No gallops. Thorax & Lungs: Normal breath sounds, No respiratory distress, No wheezing, No chest tenderness to palpation. Abdomen: Bowel sounds normal, Soft, Nontender, No masses, No pulsatile masses. Skin: Warm, Dry, No erythema, No rash. Back: No tenderness, No CVA tenderness. Extremities: Intact distal pulses, No edema, No tenderness, No cyanosis, No clubbing. Musculoskeletal: Grossly normal strength in extremities Neurologic: Alert & oriented x 3, no gross focal neurological deficits Psychiatric: Affect normal, Judgment normal, Mood normal. A/P: Palpitations - ECG 12 lead - Transthoracic echo (TTE) complete; Future WPW (Hmnqh-Gqhkgiouy-Locek syndrome) - Treadmill Stress Myocardial Perfusion Imaging; Future -Patient with pre-excitation on EKG. Stress test was ordered to assess for pre-excitation at rapid heart rates. She did not have it done. Will re order. -Will arrange for patient to follow up with EP -Patient instructed to check daily blood pressure at home 2 hours after taking medication. Patient is instructed to maintain daily blood pressure log. Patient is to contact cardiology if blood pressures above discuss target range. Patient voices understanding. -Optimize medical management -Aggressive risk factor modification -Plan of care discussed with patient. All questions were answered. Patient voices understanding and is agreeable with current plan. -Patient was educated on red flag symptoms. Strict return precautions were provided. Patient verbalizes understanding -Follow-up in cardiology clinic Benito Prado MD Interventional Cardiology [place] (more content not included)... [facility] 11-14-2023 Discharge summary Note Date/Time November 14, 2023 7:17am [facility] [address] [place] [address] Discharge Summary Signed Patient: Shahla Arias MR#: [id number] : 1980 Acct:[id number] Age/Sex: 43 / F Adm Date: 4 Loc: 1S Room: [address] [place] [address]: Geo Loomis MD Copies to: MD Geo Arredondo MD Pamela Sue Cramer, CNP~ Providers Date of Discharge: 11/14/23 Discharging Provider: Vivek Antoine Primary Care Provider: Josette Mandel Discharge Diagnosis (1) Major depression: Final Diagnosis Final Discharge Diagnosis: MDD Summary Hospital Course Hospital course: Ms. Arias is a 43 year old female with a reported history of?depression, anxiety, suicidal ideation, hypertension, vitamin D deficiency, insomnia, SHARI, asthma, LVH, IBS, GERD, and raynauds phenomenon who presents for inpatient treatment due to?depression and anxiety with suicidal ideation. Reportedly, patient presented to the ER with suicidal ideation. She states that she has not felt right since her mother last spring. She has repeated bouts of anxiety and depression. She feels her medications are not working. At the time of the interview, the patient stated she feels okay around others but fall apart when I'm alone . She currently rates her depression and anxiety a 9/10. When asked about the history of her anxiety and depression the patient states that she has struggled with both throughout periods of her life but recently it has started to get a lot worse. She states her symptoms start as anxiety exclusively but depression compiles on top of the anxiety making the situation worse. When asked if there are any identifiable stressors or remitting factors the patient states that she hasn't been able to identify anything that makes it better or worse. Her appetite is minimal and she typically only eats one meal a day plus or minus comfort food (candy). She says that she sleeps a lot but the sleep is not of high quality and she is often restless. Her goals for her stay are primarily centered around changing her medications to help provide better symptom control. She states that she is adherent to her medications so she does not believe they are currently effective. She endorses some suicidal ideation but states its not as much as previously. She endorses hallucinations in periods of stress. Fetzima was tapered down and she was started on Elavil. Patient reports she is feeling better as mood is much better compared to the time of admission. Depression and anxiety are stabilizing gradually on the current medication regimen. Anxiety is mild in intensity with attempted utilization of coping skills. She denies SI/HI and verbalized the intent to notify staff if she has such thoughts. Her affect is brighter on exam. She continues to be compliant with prescribed medications and is visible within the unit milieu. She has beenworking with major case detective on her aftercare she agreed to continue the current medications regimen. She understands risks, benefits, and indications of current medication regimen.She sees Opal Tracey her outpatient DESPATCH CLERK She has not history of recent suicide attempts, presented as future oriented, participated in group activities, articulated needs appropriately, and displayedno self-harm behaviors since being admitted to the inpatient unit. Imminent riskis low given factors noted above. She denied any current symptom that would pose a threat to self or others. Further inpatient hospitalization unlikely to mitigate chronic suicide risk, and pt agrees to f/u with outpatient psych care. We also discussed benefits of outpatient CBT and DBT to help with depression and reduce suicide risk. At this time, the patient has maximized the benefit from inpatient hospitalization as can be determined with a reasonable degree of medical certainty. At the time of discharge, the patient understood the importance of continued outpatient treatment and medication adherence. The patient voiced understanding of the discharge plan discussed with the treatment team. At time of discharge with reasonable degree of medical certainty, the patient manifesteda low risk of acute harm to self or others and a low-moderate chronic risk, evidenced by the psychiatric history and the subjective and objective condition at that time. Patient denies any active psychiatric signs and symptoms significantly deviating from baseline functioning. Residual suicide/homicide/psychosis/violence/inability to care for self is low risk as maximization of inpatient psychiatry treatment benefit was achieved to address acute risks which initially led to admission. Overall, she has a positive mood and attitude towards life. Appearance: dressed casually Mental Status: mental status grossly normal Mood: Euthymic mood Affect: Normal affect Speech and Movement: speech and movement normal and speech clear Attitude: cooperative Thought Process: normal Thought Content: Denied hallucinations, no homicidality and no suicidality Insight: fair Judgment: fair Impulse control: fair Time spent discussing smoking cessation with patient: more than 10 minutes Condition Condition at Discharge: Stable Status at Discharge Functional status at discharge: independent ambulation Time Spent with Patient Time spent providing/coordinating discharge services (# min): 69 Discharge Plan Discharge Plan Patient Disposition: Home Activity: No Activity Restriction Diet: Regular Additional Instructions: Important Contact Information You can call [facility] at [phone] any time day or night if you have emergent questions or question regarding discharge instructions. If at any time you are feeling an increase inyour psychiatric symptoms, call your physician or behavioral healthcare provider. If any time you have thoughts of harming yourself or others contact one of the following: Call (available 26/09) Crisis Text Line (available 26/09) text 4HOPE to [phone] [facility] Hope Line (available 8 a.m. Midnight) call [phone] ([phone]) Instructions: Know your Meds Prescriptions: New bupropion HCl 150 mg Tablet Extended Release 24 Hr 450 mg PO DAILY 15 Days Qty: 45 1RF amitriptyline 50 mg Tablet 50 mg PO QHS 15 Days Qty: 15 2RF Continued gabapentin 300 mg capsule 600 mg PO TID omeprazole 40 mg capsule,delayed release(DR/EC) 40 mg PO BID lorazepam 1 mg tablet 1 mg PO TID PRN (Reason: anxiety) albuterol sulfate 90 mcg/actuation HFA aerosol inhaler 2 inh inhalation Q4HR PRN (Reason: shortness of breath or wheezing) Rx Instructions: FreeTextSi puffs as needed Inhalation every 6 hrs PRN; Note: Source Status: Taking; Refills: 0; Provider: Abdias Hopson hydroxyzine pamoate 50 mg capsule 50 mg PO TID Rx Instructions: FreeTextSig: take 1 capsule by mouth three times a day Oral; Note: Source Status: Taking; Refills: 0; Qty: 90 Each; Provider: SUSHANT BRISENO olmesartan-hydrochlorothiazide 20-12.5 mg tablet 1 tab PO DAILY atorvastatin 40 mg tablet 40 mg PO DAILY olanzapine 5 mg tablet 5 mg PO TID PRN (Reason: agitation) aspirin 81 mg tablet,delayed release (DR/EC) 81 mg PO DAILY cholecalciferol (vitamin D3) 50 mcg (2,000 unit) tablet 50 mcg PO DAILY Discontinued bupropion HCl 150 mg tablet extended release 24 hr 300 mg PO DAILY Fetzima 80 mg capsule,extended release 24 hr 80 mg PO DAILY Fetzima 40 mg capsule,extended release 24 hr 40 mg PO DAILY No Action clopidogrel 75 mg tablet 75 mg PO DAILY Follow Up: [facility] [Outside] Josette Mandel NP-C [Primary Care Provider] - (Call with any medical questions or concerns.) Exam Physical Exam Vital Signs: Temp Pulse Resp BP Pulse Ox O2 Del Method 97.4 F L 88 18 101/68 97 Room Air 11/13/23 20:04 11/13/23 20:04 11/13/23 20:04 11/13/23 20:04 11/13/23 20:04 11/13/23 20:04 Documented By: Vivek Antoine MD 4 0713 Signed By: <Electronically signed by Vivek Antoine MD> 11/14/[address] [facility] Work Phone: 1(201) 954-533109-09-2024 Progress note Author Vivek washburn [facility] November 13, 2023 7:20am Note Date/Time November 13, 2023 7:19am [facility] [address] [place] [address] Psychiatry Progress Note Signed Patient: Shahla Arias MR#: [id number] : 1980 Acct:[id number] Age/Sex: 43 / F Adm Date: 4 Loc: Room: [address] [place] [address] Type : ADM IN Attending Dr: Geo Loomis MD Copies to: ~ Date of Service: 11/13/2023 Subjective Subjective Narrative: Ms. Arias reported that she her anxiety at 7 out of 10 with 10 being the worst. Depression is ongoing but noted no suicidal thoughts on exam. She lives with herhusband and daughter whom she described as supportive. She sees Sabina Tracey her outpatient DESPATCH CLERK and a therapist. She said symptoms are slowly improving and has been attending some groups. She realizes that meds will take time to work. Mental Status Exam: Appearance: grossly normal Mental Status: mental status grossly normal Mood: Depressed and anxious mood Affect: Mood congruent Speech and Movement: speech normal, movement normal Attitude: cooperative Thought Process: normal Thought Content: Denied hallucinations, no homicidality or suicidality Insight: fair Judgment: fair Exam Physical Exam Vital Signs: Temp Pulse Resp BP Pulse Ox O2 Del Method 97.8 F 89 16 123/79 96 Room Air 11/12/23 15:15 11/12/23 19:26 11/12/23 19:26 11/12/23 19:26 11/12/23 19:26 11/12/23 19:26 Assessment/Plan Assessment/Plan (1) Major depression: Plan Patient reported symptoms are slowly improving. -Continue Bupropion 450 mg QD, Gabapentin 600 mg TID, Hydroxyzine 50 mg TID Continue Elavil 50 mg at bedtime with plan to discontinue Fetzima 20 mg after 2 more days Continue to monitor mental status Encourage group participation and medication compliance Risk benefits alternatives explained Documented By: Vivek Antoine MD 4 0717 Signed By: <Electronically signed by Vivek Antoine MD> 11/13/[address] [facility] Work Phone: 1(493) 921-451009-08-2024 Progress note Author Geo Loomis [facility] November 12, 2023 11:19am Note Date/Time November 12, 2023 11:20am [facility] [address] [place] [address] Psychiatry Progress Note Signed Patient: Shahla Arias MR#: [id number] : 1980 Acct:[id number] Age/Sex: 43 / F Adm Date: 4 Loc: Room: [address] [place] [address] Type : ADM IN Attending Dr: Geo Loomis MD Copies to: ~ Date of Service: 11/12/2023 Subjective Subjective Narrative: Ms. Arias reported that she had a bout of depression and anxiety yesterday. Shestated that she is not sure what causes this. She reported that she had poor sleep overnight. She does report that her suicidal thoughts are improving but still reported hide depression and anxiety. Mental Status Exam: Appearance: grossly normal Mental Status: mental status grossly normal Mood: Depressed and anxious mood Affect: Mood congruent Speech and Movement: speech normal, movement normal Attitude: cooperative Thought Process: normal Thought Content: Denied hallucinations, no homicidality, improving suicidality Insight: fair Judgment: fair Exam Physical Exam Vital Signs: Temp Pulse Resp BP Pulse Ox O2 Del Method 98.0 F 83 16 117/80 97 Room Air 11/12/23 07:22 11/12/23 07:22 11/12/23 07:22 11/12/23 07:22 11/12/23 07:22 11/12/23 07:22 Assessment/Plan Assessment/Plan (1) Major depression: Plan Patient reported having bout of depression and anxiety last night. Suicidal thoughts improving -Continue Bupropion 450 mg QD, Gabapentin 600 mg TID, Hydroxyzine 50 mg TID Continue Elavil 50 mg at bedtime with plan to discontinue Fetzima 20 mg after 2 more days Continue to monitor mental status Encourage group participation and medication compliance Risk benefits alternatives explained Documented By: Geo Loomis MD 11/12/231117 Signed By: <Electronically signed by Geo Loomis MD> 11/12/23 1119 [facility] Work Phone: 1(635) 633-995309-07-2024 Progress note Author Geo Loomis [facility] November 11, 2023 12:01pm Note Date/Time November 11, 2023 12:01pm [facility] [address] [place] [address] Psychiatry Progress Note Signed Patient: Shahla Arias MR#: [id number] : 1980 Acct:[id number] Age/Sex: 43 / F Adm Date: 4 Loc: Room: [address] [place] [address] Type : ADM IN Attending Dr: Geo Loomis MD Copies to: ~ Date of Service: 11/11/2023 Subjective Subjective Narrative: Ms. Arias reported that her anxiety is still high. She stated that using her Ativan does help. She reported that she does sleep a bit better overnight. Shefeels like she did not have a good effect from BuSpar in the past. She denied any current side effects to the Elavil. MSE Appearance: grossly normal. Fair grooming and hygiene, calm, cooperative, engaged in the interview. Good eye contact. Normal psychomotor activity. Mental Status: mental status grossly normal Mood: Anxious Affect: Anxious Speech and Movement: speech and movement normal and speech clear. Regular rate, rhythm, volume, and tone. Non pressured. Attitude: cooperative Thought Process: normal, linear, logical, and goal-oriented Thought Content: Denies paranoid or delusional thoughts. Denied hallucinations, no homicidality and no suicidality. Does not appear to be responding to internalstimuli. Insight: fair Judgment: fair Exam Physical Exam Vital Signs: Temp Pulse Resp BP Pulse Ox O2 Del Method 97.6 F 89 16 119/78 98 Room Air 11/11/23 07:30 11/11/23 07:30 11/11/23 07:30 11/11/23 07:30 11/11/23 07:30 11/11/23 07:30 Assessment/Plan Assessment/Plan (1) Major depression: Plan Patient reported that symptoms have been improving -Continue Bupropion 450 mg QD, Gabapentin 600 mg TID, Hydroxyzine 50 mg TID Decrease Fetzima 20 mg daily and increase Elavil 50 mg at bedtime Continue to monitor mental status Encourage group participation and medication compliance Risk benefits alternatives explained Documented By: Geo Loomis MD 11/11/23 1159 Signed By: <Electronically signed by Geo Loomis MD> 11/11/23 1201 [facility] Work Phone: 1(330) 895-646409-06-2024 Progress note Author Geo Loomis [facility] November 10, 2023 1:59pm Note Date/Time November 10, 2023 12:12pm [facility] [address] [place] [address] Psychiatry Progress Note Signed Patient: Shahla Arias MR#: [id number] : 1980 Acct:[id number] Age/Sex: 43 / F Adm Date: 4 Loc: Room: [address] [place] [address] Type : ADM IN Attending Dr: Geo Loomis MD Copies to: ~ Date of Service: 11/10/2023 Subjective Subjective Narrative: Ms. Arias is a 43 year old female on day 2 of hospitalization for depression with suicidal ideation. Today the patient stated she didn't know how she was feeling. When asked to elaborate further, she stated that she was feeling okay but stated her stomachhurt yesterday after lunch so that had affected her overall mood. She rates her depression a 5/10 and her anxiety a 9/10 currently. Today she states her appetite is fine and has since recovered after the indigestion with lunch yesterday. She states that she is sleeping too much but the sleep has been largely restless and she is tossing and turning . She is attending group sessions and finds some sessions more meaningful than others. She denies suicidal ideation and denies hallucinations. She is tolerating her current medications. She does mention that she has been sweating recently but attributesit to her attire here being more than what she normally wears to bed and her anxiety contributing as well. When discussing medications further, the patient states she would like a daytime antidepressant , she explains that she is doesn't want antidepressants that are further sedating. When discussing alternative potential options she states that she has been on venlafaxine previously but is unsure if she has tried duloxetine. We discussed that her medications may be titrated or altered and may or may not include previously used medications but combinations may be different than previous use. The patient seemed amenable to this given her goal is finding an effective therapy and being able to go home MSE Appearance: grossly normal. Fair grooming and hygiene, calm, cooperative, engaged in the interview. Good eye contact. Normal psychomotor activity. Mental Status: mental status grossly normal Mood: okay Affect: flat Speech and Movement: speech and movement normal and speech clear. Regular rate, rhythm, volume, and tone. Non pressured. Attitude: cooperative Thought Process: normal, linear, logical, and goal-oriented Thought Content: Denies paranoid or delusional thoughts. Denied hallucinations, no homicidality and no suicidality. Does not appear to be responding to internalstimuli. Insight: fair Judgment: fair Patient was personally seen by me on the day of the encounter. I reviewed the history and performed the ahmadi elements of the physical examination. I formulated the plan of care and confirmed this with the medical student as notedbelow. Exam Physical Exam Vital Signs: Temp Pulse Resp BP Pulse Ox O2 Del Method 97.7 F 90 18 122/78 94 L Room Air 11/10/23 07:30 11/10/23 07:30 11/10/23 07:30 11/10/23 07:30 11/10/23 07:30 11/10/23 07:30 Assessment/Plan Assessment/Plan (1) Major depression: Plan Plan: Patient presenting due to depression with suicidal ideation -Continue Bupropion 450 mg QD -Continue Gabapentin 600 mg TID -Continue Hydroxyzine 50 mg TID -Continue Fetzima 60 mg QD will continue titration downOver the weekend -Continue Amitriptyline 25 mg QHS -Continue home medications for stable chronic medical conditions -Encourage psychotherapy to further develop coping skills and stress management -Continue to monitor mental status -Monitor suicidal behaviors for safety of self (15-minute face check). -Encourage medication adherence. Risks, benefits, and alternatives of treatment explained -Recommend attending groups and psychoeducation for building coping skills. -Risks, benefits and indications of medications were discussed with the patient.? -Involve friends/family members to coordinate care and ensure appropriate outpatient appointments are scheduled prior to discharge. Documented By: Geo Loomis MD 11/10/23 1043 Signed By: <Electronically signed by Geo Loomis MD> 11/10/23 0951 [facility] Work Phone: 1(220) 320-862609-05-2024 History and physical note Author Geo Loomis [facility] November 09, 2023 2:13pm Note Date/Time November 09, 2023 1:40pm [facility] [address] [place] [address] Psychiatry H&P Signed Patient: Shahla Arias MR#: [id number] : 1980 Acct:[id number] Age/Sex: 43 / F Adm Date: 4 Loc: Room: [address] [place] [address] Type: ADM IN Attending Dr: Geo Loomis MD Copies to: MD Josette Harper CNP~ Date of Service: 11/09/2023 HPI History of Present Illness History of present illness: Ms. Arias is a 43 year old female with a reported history of?depression, anxiety, suicidal ideation, hypertension, vitamin D deficiency, insomnia, SHARI, asthma, LVH, IBS, GERD, and raynauds phenomenon who presents for inpatient treatment due to?depression and anxiety with suicidal ideation. Reportedly, patient presented to the ER with suicidal ideation. She states that she has not felt right since her mother last spring. She has repeated bouts of anxiety and depression. She feels her medications are not working. At the time of the interview, the patient stated she feels okay around others but fall apart when I'm alone . She currently rates her depression and anxiety a 9/10. When asked about the history of her anxiety and depression the patient states that she has struggled with both throughout periods of her life but recently it has started to get a lot worse. She states her symptoms start as anxiety exclusively but depression compiles on top of the anxiety making the situation worse. When asked if there are any identifiable stressors or remittingfactors the patient states that she hasn't been able to identify anything that makes it better or worse. Her appetite is minimal and she typically only eats one meal a day plus or minus comfort food (candy). She says that she sleeps a lot but the sleep is not of high quality and she is often restless. Her goals for her stay are primarily centered around changing her medications to help provide better symptom control. She states that she is adherent to her medications so she does not believe they are currently effective. She endorses some suicidal ideation but states its not as much as previously. She endorses hallucinations in periods of stress. Past psych history: depression and anxiety Past hospitalizations: May 2022 in 1 S Past suicide attempts: No Previous medications: Multiple medications previously used for mental health. Current home meds: bupropion, gabapentin, hydroxyzine, Fetzima, lorazepam, and olanzapine Alcohol and drug use: Patient states she smoke cigarettes, typically less than 1ppd. She stopped drinking in May of 2022 and has not drank since. She denies use of recreational drugs? Living: She lives in an apartment with her and 4 year old child. She wishes they had more green space as she feels that would attribute positively toher health. She says her support system is her psychiatrist and counselor and her Employment: She is currently unemployed Review of Systems Constitutional: Endorses fatigue Neuro: Endorses numbness/tingling in extremities. Denies dizziness/lightheadedness. Denies TBI, seizure, memory loss. HEENT: Denies vision/hearing changes. Pulmonary: Endorses coughing. Denies SOB, dyspnea, wheezing. Cardiac: Endorses palpitations. Denies chest pain/pressure. Denies edema. GI: Endorses constipation. Denies abdominal pain, heartburn, N/V. Denies diarrhea Physical exam General: not in any acute distress Skin: intact HEENT: head atraumatic, face symmetrical. Pulm: ?Breathing normally without excessive effort Cardio: Regular rate and rhythm Abdomen: Normal inspection Musculoskeletal: Moves all extremities, normal strength all extremities. Neuro: Pt alert, oriented x3. Gait normal. ? CNI: Intact, normal olfaction ? CNII: Visual gerardo intact ? ? ?CNIII,IV,: EOM intact, no nystagmus. ? ? ?CNV: Sensation intact to light touch. ? ? ?CNVII: Raises eyebrows, smile/frown, puff out cheeks symmetrically. ? ? ?CNVIII: Hearing intact bilaterally. ? ? ?CNIX,X: Voice normal, soft palate elevation normal, symmetrical. ? ? ?CNXI: Shoulder shrug strong, equal bilaterally. ? ? ?CNXII: Tongue protrusion midline MSE Appearance: grossly normal. Fair grooming and hygiene, calm, cooperative, engaged in the interview. Good eye contact. Normal psychomotor activity. Mental Status: mental status grossly normal Mood: okay Affect: mood-congruent affect Speech and Movement: speech and movement normal and speech clear. Regular rate, rhythm, volume, and tone. Non pressured. Attitude: cooperative Thought Process: linear, logical, and goal-oriented Thought Content: Endorses suicidal ideation and hallucinations (associated withstress). Denies paranoid or delusional thoughts. Does not appear to be responding to internal stimuli. Insight: fair Judgment: fair Patient was personally seen by me on the day of the encounter. I reviewed the history and performed the ahmadi elements of the physical examination. I formulated the plan of care and confirmed this with the medical student as nelsy. [facility] Medical History Essential hypertension Depression with anxiety Severe anxiety with panic Vitamin D deficiency Psychophysiologic insomnia Obstructive sleep apnea (adult) (pediatric) Mild intermittent asthma without complication LVH (left ventricular hypertrophy) Irritable bowel syndrome with both constipation and diarrhea GERD without esophagitis Nicotine dependence, cigarettes, with other nicotine-induced disorders Raynaud's phenomenon without gangrene Left adrenal mass Bilateral carpal tunnel syndrome Retained gallstones following open cholecystectomy Suicidal ideation Surgical History History of delivery H/O tubal ligation H/O cardiac catheterization History of carpal tunnel release of both wrists [place] teeth removed History of cholecystectomy Family History Mother Hypertension Daughter Asthma [facility]am[facility] Relation: Daughter(s) Mother Cancer Legacy FamHx Problem: Diagnosed with Cancer History of stroke Legacy FamHx Problem: Diagnosed with Stroke Social History Smoking Status: Current every day smoker Tobacco Type: cigarettes Substance Use Type: None Substance Abuse Comment: 4 tall boys Meds Medications and Allergies Allergies metronidazole [From Flagyl] Allergy (Intermediate, Verified 11/08/23 19:44) Unknown Reaction, flu like symptoms ciprofloxacin [From Cipro] Allergy (Unknown, Verified 11/08/23 19:44) Fatigued, fever penicillin G Allergy (Unknown, Verified 11/08/23 19:44) swelling Quinolones Adverse Reaction (Verified 11/08/23 19:44) Fatigued Home Medications albuterol sulfate 90 mcg/actuation aerosol inhaler 2 inh inhalation Q4HR PRN shortness of breath or wheezing 04/24/23 [History Confirmed 11/08/23] hydroxyzine pamoate 50 mg capsule 50 mg PO TID 04/24/23 [History Confirmed 11/08/23] aspirin 81 mg tablet,delayed release 81 mg PO DAILY 08/21/23 [History Confirmed 11/08/23] atorvastatin 40 mg tablet 40 mg PO DAILY 08/21/23 [History Confirmed 11/08/23] clopidogrel 75 mg tablet 75 mg PO DAILY 08/21/23 [History Confirmed 11/08/23] olanzapine 5 mg tablet 5 mg PO TID PRN agitation 08/21/23 [History Confirmed 11/08/23] olmesartan 20 mg-hydrochlorothiazide 12.5 mg tablet 1 tab PO DAILY 08/21/23 [History Confirmed 11/08/23] gabapentin 300 mg capsule 600 mg PO TID 08/28/23 [History Confirmed 11/08/23] omeprazole 40 mg capsule,delayed release 40 mg PO BID 08/28/23 [History Confirmed 11/08/23] bupropion HCl 150 mg 24 hr tablet, extended release 300 mg PO DAILY 09/28/23 [History Confirmed 11/08/23] cholecalciferol (vitamin D3) 50 mcg (2,000 unit) tablet 50 mcg PO DAILY 09/28/23[History Confirmed 11/08/23] levomilnacipran 40 mg capsule,24 hr,extended release (Fetzima) 40 mg PO DAILY 09/28/23 [History Confirmed 11/08/23] levomilnacipran 80 mg capsule,24 hr,extended release (Fetzima) 80 mg PO DAILY 09/28/23 [History Confirmed 11/08/23] lorazepam 1 mg tablet 1 mg PO TID PRN anxiety 11/08/23 [History Confirmed 11/08/23] Exam Physical Exam Vital Signs: Temp Pulse Resp BP Pulse Ox O2 Del Method 97.8 F 102 H 18 151/86 H 97 Room Air 11/09/23 07:30 11/09/23 07:30 11/09/23 07:30 11/09/23 07:30 11/09/23 07:30 11/09/23 07:30 Results - Psychiatry Labs 11/08/23 21:13 11/08/23 21:13 Psychiatry Labs: 11/08/23 11/08/23 21:13 22:53 RBC 4.66 Hgb 13.6 Hct 41.1 MCV 88.1 MCH 29.3 MCHC 33.2 RDW 15.2 Plt Count 286 MPV 7.9 Sodium 136 Potassium 4.1 Chloride 101 Carbon Dioxide 29.1 Anion Gap 10.0 BUN 13 Creatinine 0.91 Calcium 9.6 Total Bilirubin 0.5 AST 19 ALT 18 Alkaline Phosphatase 93 Total Protein 7.5 Albumin 4.1 Urine Color Yellow Urine Appearance Clear Urine pH 5.0 Ur Specific [place] 1.018 Urine Protein Negative Urine Glucose (UA) Normal Urine Ketones Negative Urine Occult Blood 1+ H Urine Nitrite Negative Ur Leukocyte Esterase 3+ H Urine RBC 3-4 Urine WBC 5-9 H Assessment/Plan (1) Major depression: Plan PLAN Patient presenting due to depression and suicidal ideation -Continue home medication bupropion and increase to 450 mg daily -Continue home medication gabapentin 600 mg TID -Continue home medication hydroxyzine 50 mg TID -Continue home medication and decrease Fetzima 60 mg daily, while initiating Elavil 25 mg at bedtime -Continue home medications for stable chronic medical conditions -Advocate for psychotherapy to help to develop coping skills Continue to monitor mental status Monitor suicidal behaviors for safety of self (15-minute face check). Encourage medication adherence. Risks, benefits, and alternatives of treatment explained Recommend?attending groups and psychoeducation for building coping skills. Risks, benefits and indications of medications were discussed with the patient.? Involve friends/family members to coordinate care and ensure appropriate outpatient appointments are scheduled prior to discharge. Documented By: Geo Loomis MD 11/09/23 1314 Signed By: <Electronically signed by Geo Loomis MD> 11/09/23 8900 [facility] Work Phone: 1([phone]) 125-748006-24-2024 Hospital Discharge instructions Additional Instructions Try your other anxiety medication first For continued anxiety despite your other medication you may take 1 lorazepam every 6-8 hours Follow-up as scheduled with the counseling center I also gave you the hope number to call if needed Return to the ER for thoughts of hurting yourself or others severe anxiety or [facility] Work Phone: 1([phone]) 144-276004-24-2024 NoteCardiology Clinic Note Chief Complaint: palpitations HPI: Shahla Arias is a 43 y.o. female with a past medical history including HTN and PVD who was referred to Cardiology clinic for palpitations. Patient reports symptoms of palpitations have been ongoing for some time, but have worsened recently. Patient reports symptoms can occur at rest and with exertion, but they do not seem to be worsened with exertion. She denies any additional associated symptoms. She complains of unrelated occasional atypical chest pain. This occurs mostly at rest and not with exertion. She denies any shortness of breat. No lower extremity edema, orthopnea, or PND. No near syncope or syncope. Cardiology ROS: GENERAL: Denies fever, chills, night sweats, weight loss. HEENT: Denies changes in vision, photophobia, changes in hearing, epistaxis, oral bleeding. CARDIOVASCULAR: As per HPI RESPIRATORY: Denies SOB, coughing, wheezing GI: Denies abdominal pain, nausea/vomiting, heartburn, melena/hematochezia. RENAL: Denies dysuria, hematuria, flank pain. MSK: Denies muscle weakness/pain, arthralgias/joint pain. NEUROLOGIC: Denies LOC, weakness, numbness, headaches. SKIN: Denies abnormal rashes or bleeding. PSYCH: Denies significant anxiety, depression, sleep disturbances. Past Medical History She has a past medical history of Alcohol abuse, GERD (gastroesophageal reflux disease), Hypertension, PAD (peripheral artery disease) ([facility]), Palpitations, and Raynaud's disease. Surgical History She has a past surgical history that includes Carpal tunnel release; Cholecystectomy; Cyst Removal; Cardiac catheterization; and section, classic. Social History She reports that she has been smoking cigarettes. She has been smoking an average of 1 pack per day. She has never used smokeless tobacco. She reports that she does not currently use alcohol. No history on file for drug use. Family History Family History Problem Relation Name Age of Onset Hypertension Mother Cancer Mother Stroke Mother Medications Current Outpatient Medications on File Prior to Visit Medication Sig Dispense Refill aspirin 81 mg EC tablet 1 tablet Orally Once a day atorvastatin (Lipitor) 40 mg tablet Take 40 mg by mouth in the morning. cholecalciferol (Vitamin D-3) 50 MCG (1999 UT) tablet Take by mouth in the morning. clopidogrel (Plavix) 75 mg tablet Take 75 mg by mouth in the morning. gabapentin (Neurontin) 600 mg tablet Take 600 mg by mouth in the morning, afternoon, and at bedtime. hydrOXYzine pamoate (Vistaril) 50 mg capsule 50 mg three times daily. levomilnacipran (Fetzima) 80 mg extended release capsule Take 120 mg by mouth in the morning. mirtazapine (Remeron) 7.5 mg tablet 1 tablet at bedtime Orally for 30 days naltrexone ER (VivitroL) injection 1 injection Intramuscular once monthly for 30 days OLANZapine (ZyPREXA) 5 mg tablet take 1 tablet by mouth three times a day if needed for AGITATION olmesartan-hydrochlorothiazide (BENIcar HCT) 20-12.5 mg tablet Take 1 tablet by mouth in the morning. omeprazole (PriLOSEC) [address] capsule Take 40 mg by mouth in the morning and at bedtime. traZODone (Desyrel) 100 mg tablet Take 200 mg by mouth. No current facility-administered medications on file prior to visit. Allergies Ciprofloxacin, Metronidazole, and Penicillins Physical Exam VITAL SIGNS: BP 116/74 (BP Location: Right arm, Patient Position: Sitting) Pulse 78 Ht 1.676 m (5' 6 ) Wt 103 kg (227 lb) SpO2 96% BMI 36.64 kg/m??? Constitutional: Well developed, Well nourished, No acute distress, Non-toxic appearance. HENT: Normocephalic, Atraumatic, Bilateral external ears have normal appearance, Nose appears normal, nares are patent. Eyes: PERRLA, EOMI, Conjunctiva normal, No discharge. Neck: Normal range of motion, No tenderness, Supple, No stridor. No cervical lymphadenopathy noted. Cardiovascular: Normal heart rate, Normal rhythm, No murmurs, No rubs, No gallops. Thorax & Lungs: Normal breath sounds, No respiratory distress, No wheezing, No chest tenderness to palpation. Abdomen: Bowel sounds normal, Soft, Nontender, No masses, No pulsatile masses. Skin: Warm, Dry, No erythema, No rash. Back: No tenderness, No CVA tenderness. Extremities: Intact distal pulses, No edema, No tenderness, No cyanosis, No clubbing. Musculoskeletal: Grossly normal strength in extremities Neurologic: Alert & oriented x 3, no gross focal neurological deficits Psychiatric: Affect normal, Judgment normal, Mood normal. A/P: Palpitations - ECG 12 lead - Transthoracic echo (TTE) complete; Future LVH (left ventricular hypertrophy) - Transthoracic echo (TTE) complete; Future - Treadmill Stress Myocardial Perfusion Imaging; Future WPW (Rlifb-Wlibtsukf-Njwhv syndrome) - Treadmill Stress Myocardial Perfusion Imaging; Future Dyspnea on exertion - Treadmill Stress Myocardial Perfusion Imaging; Future -P (more content not included)...[facility]04-24-2024 NoteNew patient here to establish care. She is referred from Josette Mandel CNP for palpitations. She had normal heart cath in [address] [facility]. Wore 5 day Holter monitor last month. She sees vascular surgery at [facility] for PAD. PCP started her on metoprolol tartrate 25mg bid but patient did not start it. She denies chest pain. Gets SOB w/ exertion and palpitations daily.[facility]02-10-2024 Evaluation note* Encounter Date Diagnosis Assessment Notes Treatment Notes Treatment Clinical Notes Apr, Cellulitis of left toe (ICD-10 [...] understanding and is agreeable with treatment plan [facility] [employer] [facility] Other 12-22-2023 Evaluation note* Encounter Date Diagnosis [...] (ICD-10 - F17.218) Smoking cessation strongly encouraged. [facility] Other 10-17-2023 Evaluation note* Encounter Date Diagnosis [...] understanding and is agreeable to treatment plan [facility] Other 09-19-2023 Evaluation note* Encounter Date Diagnosis [...] She may need to consider seeing a credit card associate and discussing alternative medication options with her [...] (ICD-10 - F17.218) Smoking cessation strongly encouraged. [facility] Other 09-11-2023 Evaluation note* Encounter Date Diagnosis Assessment Notes Treatment Notes Treatment Clinical Notes Nov, Essential hypertension (ICD-10 - I10) [facility] Other 06-21-2023 Evaluation note* Encounter Date Diagnosis [...] (ICD-10 - F17.218) Smoking cessation strongly encouraged. [facility] Other 03-21-2023 Evaluation note* Encounter Date Diagnosis Assessment Notes Treatment Notes Treatment Clinical Notes May, Vitamin D deficiency (ICD-10 - E55.9) [facility] Other 03-15-2023 Evaluation note* Encounter Date Diagnosis [...] in the meantime. Smoking cessation strongly encouraged. May, Cigarette nicotine dependence with other nicotine-induced disorder (ICD-10 - F17.218) Smoking cessation strongly encouraged. [facility] Other 03-11-2023 Progress note Author Geo Loomis [facility] May 14, 2022 11:17am Note Date/Time May 14, 2022 11: 17am [facility] [address] [place] [address] Psychiatry Progress Note Signed Patient: Shahla Ruelas MR#: [id number] : 1980 Acct:[id number] Age/Sex: 42 / F Adm Date: 3 Loc: Room: [address] [place] [address] Type : ADM IN Attending Dr: Geo [...] MD 05/14/221114 Signed By: <Electronically signed by Goe Loomis MD> 05/14/[address] [facility] Work Phone: 1(495) 587-833703-10-2023 Progress note Author Geo Loomis [facility] May 13, 2022 12:04pm Note Date/Time May 13, 2022 10: 47am [facility] [address] [place] [address] Psychiatry Progress Note Signed Patient: Shahla Ruelas MR#: [id number] : 1980 Acct:[id number] Age/Sex: 42 / F Adm Date: 3 Loc: Room: [address] [place] [address] Type : ADM IN Attending Dr: Geo [...] <Electronically signed by Geo Loomis MD> 05/13/22 120 [facility] Work Phone: 1(499) 466-717603-09-2023 Progress note Author Geo Loomis [facility] May 12, 2022 2:13pm Note Date/Time May 12, 2022 9:57 am [facility] [address] [place] [address] Psychiatry Progress Note Signed Patient: Shahla Ruelas MR#: [id number] : 1980 Acct:[id number] Age/Sex: 42 / F Adm Date: 3 Loc: Room: [address] [place] [address] Type : ADM IN Attending Dr: Geo [...] out of 10. 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 Patient claims that [...] explained Documented By: Geo Loomis MD 05/12/22 0951 Signed By: <Electronically signed by Geo Loomis MD> 05/12/[address] [facility] Work Phone: 1(992) 266-133903-08-2023 History and physical note Author Geo Loomis [facility] May 11, 2022 10:39am Note Date/Time May 11, 2022 10:3 9am [facility] [address] [place] [address] Psychiatry H&P Signed Patient: Shahla Ruelas MR#: [id number] : 1980 Acct:[id number] Age/Sex: 42 / F Adm Date: 3 Loc: Room: [address] [place] [address] Type: ADM IN Attending Dr: Geo Loomis MD Copies to: MD Tamara Harper, ~ Date of Service: 05/11/2022 HPI History of [...] denied any recent hallucinations. Past psych history: [facility], major depressive disorder Past hospitalizations: Denies Past [...] Cloudy A Urine pH 6.0 Ur Specific [place] 1.028 Urine Protein 30 H Urine Glucose [...] <Electronically signed by Geo Loomis MD> 05/11/[address] [facility] Work Phone: 1(781) 326-105001-10-2023 Evaluation note* Encounter Date Diagnosis Assessment Notes [...] treatment. Call at any time with questions/concerns. [employer] Other 12-12-2022 History of Present illness Narrative* Dennis Dunn MD - 02/14/2022 12:03 PM EST This encounter was opened in error. Patient was a No-Show. Please disregard. Called, directly to busy signal. Dennis Sarmiento MD documented in this [id number] Evaluation note* Encounter Date Diagnosis Assessment Notes Treatment Notes Treatment Clinical Notes Nov, Mild intermittent asthma without complication (ICD-10 - J45.20) [employer] Other 06-30-2022 History of Present illness Narrative* [...] and Staging Information: SPECIMEN FOR SURGICAL PATH: [id number] Order: [id number] Collected 07/30/2021 15:54 Status: Final result Visible to patient: Yes (not seen) Dx: Liver cyst; Cyst of gallbladder 0 Result Notes Component Case Report Surgical Pathology Report Case: [id number] Authorizing Provider: Dennis Sarmiento MD Collected: 07/30/2021 1554 Ordering Location: [facility] Main OR Received: 08/03/2021 1030 Pathologist: Marc [...] identified lymph nodes or masses grossly. Sections: [place] A1. Fibrotic tissue (X) B. Requisitioned as [...] of tumor, it is inked green. Sections: [place] B1. Cystic lesion, fibrotic area (X) B2-B6. [...] Kortney Ivey M.D Clinical Information Resulting Agency [facility] Specimen Collected: 07/30/21 15:54 Last Resulted: 08/05/21 08:46 Order Details View Encounter Lab and Collection Details Routing Result History Scans on Order [id number] Document on 08/05/2021 8:46 AM by Marc Ricketts, Treatment Recommendations and NCCN: Plan no surgical intervention needed at this time. Follow up in 02/[address] Sarmiento The above recommendations were based on NCCN guidelines, as well as consideration of current national standards and review of the literature. Nicole Garcia RN documented in this [id number] [facility] History and [...] 4 mg/0.1 mL nasal liquid Use 1 [place] in one nostril (alternate sides) as needed [...] ??? 84 ??? 15.6 ??? 163 ? 07/31/218 9.5 ??? 3.45 ??? 9.9 ??? 28.7 ??? 83 ??? 15.1 ??? 207 ? 07/31/2142 ? 9.9 ??? 30.6 ? Basic Metabolic [...] ??? 6 ??? 0.63 ??? 8.1 ? 07/31/218 135 ??? 4.6 ??? 106 ??? 22 ??? 12 ??? 129 ??? 10 ??? 0.85 ??? 8.9 ? 07/31/21 0043 138 ? LFT's (last 3 years, up to 5 values) (Last 5 results in the past 3 years) ??? T Prot (more content not included)...[employer] [id number] Evaluation note* Encounter Date Diagnosis Assessment Notes [...] I see her back in 6 months. [employer] Other 06-13-2022 History of Present illness Narrative* Dennis Dunn MD - 08/16/2021 1:09 PM EDT Phone numbers Preferred Documentation: Mode: Telephone Patient Patient Work Phone: Patient Cell Preferred phone: [phone] Consent: I confirmed patient understanding of the risks and benefits of telehealth visits and obtained consent to proceed with the telehealth visit. Location of Patient: Home of patient Surgery Follow Up Feeling well since surgery. Still hurting but she is starting to feel better. [facility] week for staple removal. SPECIMEN FOR SURGICAL PATH: [id number] Order: [id number] Collected 07/30/2021 15:54 Status: Final result Visible to patient: Yes (not seen) Dx: Liver cyst; Cyst of gallbladder 0 Result Notes Component Case Report Surgical Pathology Report Case: [id number] Authorizing Provider: Dennis Sarmiento MD Collected: 07/30/2021 1554 Ordering Location: [facility] Main OR Received: 08/03/2021 1030 Pathologist: Marc [...] identified lymph nodes or masses grossly. Sections: [place] A1. Fibrotic tissue (X) B. Requisitioned as [...] of tumor, it is inked green. Sections: [place] B1. Cystic lesion, fibrotic area (X) B2-B6. [...] Kortney Ivey M.D Clinical Information Resulting Agency 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 Follow up in 6 months with a televisit in person if needed. Dennis Sarmiento MD, FACS documented in this [id number] History of Present illness Narrative* Josephine Osborn MD - 08/10/2021 3:25 PM EDT Images from the original note were not included. [facility] New Patient - History and Physical Patient [...] 4 mg/0.1 mL nasal liquid Use 1 [place] in one nostril (alternate sides) as needed [...] WBC RBC Hgb Hct MCV RDW Plt 08/03/21 0050 6.5 2.97 8.6 24.9 84 15.4 245 08/02/21 0012 7.8 2.87 8.0 24.0 84 15.5 186 08/01/21 0007 7.6 2.66 7.6 22.3 84 15.6 163 07/31/21 0248 9.5 3.45 9.9 28.7 83 15.1 207 07/31/21 0043 9.9 30.6 Basic Metabolic Panel (Last 5 results in the past 3 years) Na K Cl CO2 Gap Glu BUN Cr Ca 08/03/2149 138 3.8 103 25 14 88 3 0.65 8.7 08/02/21 001 138 4.2 106 25 11 85 4 0.66 8.4 08/01/216 135 4.5 105 24 11 101 6 0.63 8.1 07/31/218 135 4.6 106 22 12 129 10 0.85 8.9 07/31/21 0043 138 LFT's (last 3 years, up to 5 values) (Last 5 results in the past 3 years) T Prot Albumin D Bili T Bili Alk Phos ALT AST 08/03/2149 4.5 2.7 0.20 0.6 43 29 26 08/02/21 001 4.4 2.6 0.20 0.8 35 34 37 08/01/21 000 3.7 2.7 0.20 1.0 32 40 53 07/31/21247 4.7 3.7 0.40 1.8 30 55 102 [...] less than 10cc serous fluid in bulb. [place] in place, incision healing Lymphatic: No cervical [...] Risk protocol implemented: No documented in this [id number] Hospital Discharge instructions* Discharge Instructions* Meenakshi Weeks PA-C - 08/04/2021 8:31 AM EDT GENERAL SURGERY DISCHARGE INSTRUCTIONS C O N F I D E N T I A L I N F O R M A T I O N Shahla Ruelas [id number] The following is a brief overview of [...] clinic or by your primary care physician 10- days after the date of surgery. Do [...] Other SIGNED: Registered Nurse documented in this [id number] History of Present illness Narrative* Meenakshi Weeks PA-C - 08/04/2021 6:43 AM EDT Images [...] vital signs. Holding home losartan. Pulm: Resp senior oracle adf developer protocol, Encourage IS x10/hr, OOB and ambulation GI: Continue GI soft diet. Cont nexium daily, carafate. /FEN: HLIV Endocrine: no hx of glyemic issues ID: No abx indicated Proph: lovenox daily and SCDs Dispo: DC to home today Patient was seen with chief resident, Dr. Osborn and d/w Attending Surgeon Dr. Sarmiento. --- Meenakshi Weeks PA-C General Surgery PA-Tera * Varsha Solis RN - 08/03/2021 11:51 [...] discharge planning needs as warranted. MILAN Ferrell, fuel cell test engineer * Nicole Bello PA-C - 08/03/2021 7:19 [...] 4 0.66 8.4 08/01/21 0007 1.9 08/01/21 000 135 4.5 105 24 [...] vital signs. Holding home losartan. Pulm: Resp senior oracle adf developer protocol, Encourage IS x10/hr, OOB and ambulation [...] Bello PA-C General Surgery PGY3 Blue Pager: [phone] * Tamara Jurado MD - 08/02/2021 8:53 AM EDT Images from the original note were not included. [facility] PROGRESS NOTE Interval history/Events: No acute events overnight Pain adequately controlled with GRINDING WHEEL OPERATOR Tolerating clear liquid Using IS Drain output [...] MCV RDW Plt PT aPTT INR 08/02/21 001 7.8 2.87 8.0 24.0 84 15.5 186 08/01/21 0841 29 08/01/21 0841 1.13 08/01/21 0007 7.6 2.66 7.6 22.3 84 15.6 163 07/31/21 0248 9.5 3.45 9.9 28.7 83 15.1 207 07/31/21 0043 9.9 30.6 07/30/21 2010 9.5 29.5 07/30/21 1738 12.2 37.4 07/30/21 1647 11.9 36.6 WBC/Diff None Basic Metabolic Panel Na K Cl CO2 Gap Glu BUN Cr Ca Mg PO4 08/02/21 0012 1.9 08/02/21 001 138 4.2 106 25 11 85 4 0.66 8.4 08/01/21 000 1.9 05/29/22 0007 135 4.5 105 24 11 101 6 0.63 8.1 07/31/21 0248 1.5 07/31/21 0248 135 4.6 106 22 12 [...] Neuro/Pain: scheduled tylenol, robaxin, gabapentin. Prn oxy 10. Cont home home trazodone and fluoxetine CV: Monitor vital signs. Holding home losartan. Pulm: Resp senior oracle adf developer protocol, Encourage IS x10/hr, OOB and ambulation GI: FLD. Cont nexium daily, carafate. /FEN: cont LR at 75/hr. TOV today. Endocrine: no hx of glyemic issues ID: No abx indicated Proph: lovenox daily and SCDs Dispo: Continue on RNF Patient d/w Attending Surgeon Dr. Sarmiento --- Tamara Jurado MD General Surgery PGY3 Blue Pager: [phone] * Madeleine Hooks MD - 08/01/2021 8:06 AM EDT Images from the original note were not included. BLUE SURGERY PROGRESS NOTE Interval history/Events: No acute events overnight Pain adequately controlled with GRINDING WHEEL OPERATOR Mild nausea but improved Tolerating clear liquid [...] Hct MCV RDW Plt PT aPTT INR 08/01/21 0007 7.6 2.66 7.6 22.3 84 15.6 163 07/31/21 0248 9.5 3.45 9.9 28.7 83 15.1 207 07/31/21 0043 9.9 30.6 07/30/212009 9.5 29.5 07/30/21 1738 12.2 37.4 07/30/21 1647 11.9 36.6 WBC/Diff None Basic Metabolic Panel Na K Cl CO2 Gap Glu BUN Cr Ca Mg PO4 08/01/21 000 1.9 08/01/21 000 135 4.5 105 24 11 101 6 0.63 8.1 07/31/218 1.5 07/31/21247 135 4.6 106 22 12 129 10 0.85 8.9 07/31/2142 138 07/30/212009 138 07/30/21 1738 135 07/30/21 1647 137 Hepatic/Biliary/Pancreas T Prot Albumin D Bili T Bili Alk Phos ALT AST Amylase Lipase 08/01/216 3.7 2.7 0.20 1.0 32 40 53 07/31/218 4.7 3.7 0.40 1.8 30 55 [...] PRN .NO ORAL PAIN MEDS WHILE ON GRINDING WHEEL OPERATOR/EPIDURAL 1 Each PRN naloxone 0.4 mg PRN [...] 08/01/2021. Plan: Neuro/Pain: scheduled tylenol, robaxin. Dilaudid GRINDING WHEEL OPERATOR. Cont home trazodone and fluoxetine CV: Monitor vital signs Pulm: Resp senior oracle adf developer protocol, Encourage IS x10/hr, OOB and ambulation GI: NPO for possible PTHC today. Consult IR for PTHC given bile leak ( discussed with ED medical transcription radiology who will discuss with IR team). Cont nexium daily, carafate /FEN: cont LR at 75/hr. Voiding spontaneously Endocrine: no hx of glyemic issues ID: No abx indicated Proph: lovenox daily and SCDs Dispo: Continue on RNF Patient d/w Attending Surgeon Dr. Sarmiento --- Madeleine Hooks MD General Surgery PGY3 Blue Pager: [phone] * Tamara Jurado MD - 07/31/2021 8:55 AM EDT Images from the original note were not included. BLUE SURGERY PROGRESS NOTE Subjective - NAEON - some abdominal pain on GRINDING WHEEL OPERATOR - some indigestion this morning - has not passed gas - denies nausea Objective: Vitals: 07/31/21 0500 BP: 131/67 Pulse: 73 Resp: 16 Temp: 97.7 F (36.5 C) SpO2: 98% Physical Exam: Gen: NAD, Alert and oriented Pulm: Non labored breathing on 2L NC, no conversational dyspnea Heart: RR Abd: Soft, ND, appropriately TTP, incision with dressing with minimal strikethrough, JANETT SS : reyes in place draining clear yellow urine Ext: [...] Hct MCV RDW Plt PT aPTT INR 07/31/218 9.5 3.45 9.9 28.7 83 15.1 207 07/31/21 0043 9.9 30.6 07/30/21 2010 9.5 29.5 07/30/21 1738 12.2 37.4 07/30/21 1647 11.9 36.6 WBC/Diff None Basic Metabolic Panel Na K Cl CO2 Gap Glu BUN Cr Ca Mg PO4 07/31/21 0248 1.5 07/31/21 0248 135 4.6 106 22 12 129 10 0.85 8.9 07/31/21 0043 138 07/30/212009 138 07/30/21 1738 135 07/30/21 1647 137 Hepatic/Biliary/Pancreas T Prot Albumin D Bili T Bili Alk Phos ALT AST Amylase Lipase 07/31/21 0248 4.7 3.7 0.40 1.8 30 [...] PRN .NO ORAL PAIN MEDS WHILE ON GRINDING WHEEL OPERATOR/EPIDURAL 1 Each PRN naloxone 0.4 mg PRN [...] for nausea; continue carafate - Tylenol, Robaxin, GRINDING WHEEL OPERATOR - LR 75, daily labs - oob [...] Torsten Jurado MD PGY1 documented in this [id number] Note* Care Plan Note - AnilaOly vargas RN - 08/04/2021 3:53 AM EDT Problem: [...] adult patient will be met Outcome: Progressing [id number] Miscellaneous Notes* Care Plan Note - Oly [...] 0945 by Keiko Zhang RN Outcome: Progressing 08/02/202144 by Keiko Zhang RN Outcome: Progressing Problem: Safety: Goal: Patient will remain free of falls during hospital stay 08/02/2021 0945 by Kekio Zhang RN Outcome: Progressing 08/02/202144 by Keiko Zhang RN Outcome: Progressing Goal: Free from injury during hospitalization 08/02/2021 0945 by Keiko Zhang RN Outcome: Progressing 08/02/202144 by Keiko Zhang RN Outcome: Progressing Problem: Acute Pain: Goal: Ability to identify pain intensity on a pain scale and rate it consistently will be achieved and maintained 08/02/202145 by Keiko Zhang RN Outcome: Progressing 08/02/2021943 by Keiko Zhang RN Outcome: Progressing Goal: Understanding of proper administration and use of medicines will be achieved 08/02/202145 by Keiko Zhang RN Outcome: Progressing 08/02/2021943 by Keiko Zhang RN Outcome: Progressing Goal: Acceptable level of pain which allows the patient to achieve functional outcome goals 08/02/2021 0945 by Keiko Zhang RN Outcome: Progressing 08/02/2021943 by Keiko Zhang RN Outcome: Progressing Goal: Ability to identify factors that manage or decrease pain will be achieved 08/02/2021944 by Keiko Zhang RN Outcome: Progressing 08/02/2021943 by Keiko Zhang RN Outcome: Progressing Problem: VTE Prophylaxis: Goal: Will be free of DVT 08/02/202145 by Keiko Zhang RN Outcome: Progressing 08/02/2021943 by Keiko Zhang RN Outcome: Progressing Problem: Discharge Planning: Goal: Discharge needs of the adult patient will be met 08/02/2021944 by Keiko Zhagn RN Outcome: Progressing 08/02/2021943 by Keiko Zhang [...] year old female Surgical Contact Serial Number: [id number] Preoperative Diagnosis: Cyst of gallbladder [K82.8] Liver [...] Mercedes Soliman; Anya Fletcher; Juan Jon RN Line Decorator Nurse: Vitaly Reyes, VITA; Kraig Espinal; Rosa Seo RN; Yumiko Haji, VITA; Irina Marie, VITA; Juany Higginbotham, manual control auger press operatorAirport Planner: Madeleine Hooks MD Anesthesia: General Anesthesiologist: Neil Rodriguez MD; Uriel Hathaway DO CAA: Rina Childress ANIMAL HUSBANDRY TEACHER: Adrian Bermudez ELECTORATE OFFICER-ANIMAL HUSBANDRY TEACHER; Jewel Vogel APRN-ANIMAL HUSBANDRY TEACHER; Mariel Ireland APRN-ANIMAL HUSBANDRY TEACHER Trench Pipe Layer: Al Mascorro MD; Jean Ojeda MD Specimen(s): [...] Diamond Larson MD Co-Surgeon: Dennis Sarmiento MD Surgical Supplies Sterilizer: Madeleine Hooks MD (general surgery resident) Anesthesiologist: [...] were discussed with the patient and/or legal vaccine customer representative. The risks, benefits and alternatives were reviewed. Questions regarding anesthesia were answered. Patient and/or legal vaccine customer representative knows such anesthetics and procedures may [...] were discussed with the patient and/or legal vaccine customer representative. The risks, benefits and alternatives were reviewed. Questions regarding blood transfusions were answered. The patient /or the patient s legal vaccine customer representative agree with the plan for transfusion of blood and/or blood components. documented in this [id number] Note* Care Plan Note - Antoinette Elmore [...] adult patient will be met Outcome: Progressing [id number] Consult note* Lavinia Jones, PT - 08/03/2021 4:22 PM EDT PHYSICAL [...] Dep Max Mod Min CG CS DS WV I Comment Supine to sit x Sit [...] With Patients permission ordered no equipment via V[employer] Order. If any questions contact [facility] DME Provider at [phone]. 6 Clicks Basic Mobility PT 08/03/2021 Difficulty [...] Care Lavinia Jones, PT , DPT, CLT #[phone] NA = Not Assessed, I = Independent, WV = Modified Independent, Sup = Supervised, Set up = Physical Assistance for Set-up Only, Min = Minimal Assistance, Mod = Moderate Assistance, Max = Maximal assistance; Dep = Dependent; AROM = Active Range of Motion; PROM = Passive Range of Motion; MMT = Manual Muscle Test [id number] Consult note* Lavinia Jones, PT - 08/03/2021 4:22 PM EDT PHYSICAL [...] Dep Max Mod Min CG CS DS WV I Comment Supine to sit x Sit [...] With Patients permission ordered no equipment via [employer] Order. If any questions contact [facility] DME Provider at [phone]. 6 Clicks Basic Mobility PT 08/03/2021 Difficulty [...] Care Lavinia Jones, PT , DPT, CLT #[phone] NA = Not Assessed, I = Independent, WV = Modified Independent, Sup = Supervised, Set [...] Dep Max Mod Min CG CS DS WV I Set-Up Comment Feeding x Grooming/Hygiene x Bathing:UB x Bathing:LB x Dressing:UB x Dressing: LB x Toileting x Transfers/Bed Mobility: Assistance Level NA Dep Max Mod Min CG CS DS WV I Set-Up Comment Toilet Transfers x Bed Transfers x Bed Mobility x Dynamic standing x Endurance for Self Care: Good Static Sitting Balance: WFL Dynamic Sitting Balance: WFL Patient/Family Education: Instructed patient in roles of therapy Patient up in bed with call light in reach. . DME: With Patients permission ordered no equipment via [employer]Sys Order. If any questions contact [facility] DME Provider at [phone]. Progressive Mobility Level: 4 6 Clicks Daily [...] Guard Assist/Supervision 4 - Non = Modified [place]/Independent ASSESSMENT: Patient is functionally appropriate for discharge [...] NA = Not Assessed, I = Independent, WV = Modified Independent, Sup = Supervised, Set [...] OBJECTIVE: Appearance: drain x 1, reyes, IV, GRINDING WHEEL OPERATOR Behavior: Awake, pleasant, cooperative, agreeable to therapy Pain: Site/Location: stomach; Pain Scale: 6/10 Pain Relief Interventions Implemented: Positioning and Rest, pt utilizes GRINDING WHEEL OPERATOR PRN, RN aware Mobility NA Dep Max Mod Min CG CS DS WV I Comment Roll to right sidelying x [...] NA = Not Assessed, I = Independent, WV = Modified Independent, Sup = Supervised, Set [...] and benefits of treatment Appearance: Oxygen, IV, GRINDING WHEEL OPERATOR, Drain JANETT and Reyes Alertness: Drowsy Affect: flat Cooperation/Behavior: cooperative Communication: Able to express needs with increased processing time Pain: Pain ratin/10, Location: abdomen Pain Relief Interventions Implemented: Positioning and activity Self Care: Assistance Level Dep Max Mod Min CG CS DS WV I Set-Up Comment Feeding x Grooming/Hygiene x Standing sink side Bathing:UB x Anticipated, recommend seated Bathing:LB x Anticipated, recommend seated Dressing:UB x Dressing: LB x Socks Toileting x Reyes Transfers/Bed Mobility: Assistance Level Dep Max Mod Min CG CS DS WV I Set-Up Comment Toilet Transfers Bed Transfers [...] Guard Assist/Supervision 4 - Non = Modified [place]/Independent ASSESSMENT: Anticipate patient will be appropriate for [...] NA = Not Assessed, I = Independent, WV = Modified Independent, Sup = Supervised, Set up = Physical Assistance for Set-up Only, Min = Minimal Assistance, Mod = Moderate Assistance, Max = Max assistance; Dep = Dependent; AROM = Active Range of Motion;PROM=Passive Rangeof Motion; MMT = Manual Muscle Test; UB = Upper Body; LB = Lower Body * Heladio Chun, PT - 07/31/2021 1:32 PM EDTAssociated Order(s): [...] you Patient Identified Goal(s): To return home PLUG PASTER Status: + drive, I 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 0 steps to bedroom/bathroom Assistance available: Spouse can assist PRN Equipment available: none OBJECTIVE: Appearance: Oxygen, IV, GRINDING WHEEL OPERATOR, Drain and Reyes Behavior: Drowsy Oriented x 4 Follows multple step commands consistently and without cues Pain: Site/Location: abdomen; Pain Scale: 7/10 Pain Relief Interventions Implemented: Encouraged patient to use GRINDING WHEEL OPERATOR Passive ROM: Not formally tested however observed [...] With Patients permission ordered no equipment via VidSys Order. If any questions contact [facility] DME Provider at [phone]. 3 Clicks Basic Mobility PT 07/31/2021 Difficulty turning [...] understanding and agreement with the plan. Heladio Chun, PT NA = Not Assessed, I = Independent, WV = Modified Independent, Sup = Supervised, Set up = Physical Assistance for Set-up Only, Min = Minimal Assistance, Mod = Moderate Assistance, Max = Max assistance; Dep = Dependent; AROM = Active Range of Motion; PROM = Passive Range of Motion; MMT = Manual Muscle Test; LE = Lower Extremity documented in this [id number] Consult note* Sharee Herndon, OT - 08/03/2021 [...] Dep Max Mod Min CG CS DS WV I Set-Up Comment Feeding x Grooming/Hygiene x Bathing:UB x Bathing:LB x Dressing:UB x Dressing: LB x Toileting x Transfers/Bed Mobility: Assistance Level NA Dep Max Mod Min CG CS DS WV I Set-Up Comment Toilet Transfers x Bed Transfers x Bed Mobility x Dynamic standing x Endurance for Self Care: Good Static Sitting Balance: WFL Dynamic Sitting Balance: WFL Patient/Family Education: Instructed patient in roles of therapy Patient up in bed with call light in reach. . DME: With Patients permission ordered no equipment via VidSys Order. If any questions contact [facility] DME Provider at [phone]. Progressive Mobility Level: 4 6 Clicks Daily [...] Guard Assist/Supervision 4 - Non = Modified [place]/Independent ASSESSMENT: Patient is functionally appropriate for discharge [...] per goals as indicated above. Sharee Herndon OTR/Missy NA = Not Assessed, I = Independent, WV = Modified Independent, Sup = Supervised, Set up = Physical Assistance for Set-up Only, Min = Minimal Assistance, Mod = Moderate Assistance, Max = Max assistance; Dep = Dependent; AROM = Active Range of Motion;PROM=Passive Rangeof Motion; MMT = Manual Muscle Test; UB = Upper Body; LB = Lower Body [id number] Note* Care Plan Note - Rayshawn Shaw [...] adult patient will be met Outcome: Progressing [id number] Note* Care Plan Note - Keiko Zhang [...] RN Outcome: Progressing 08/02/2021 09 by Keiko Zahng RN Outcome: Progressing Problem: Acute Pain: Goal: [...] RN Outcome: Progressing 08/02/2021 09 by Keiko Zhagn RN Outcome: Progressing Problem: Discharge Planning: Goal: Discharge needs of the adult patient will be met 08/02/2021 0945 by Keiko Zhang RN Outcome: Progressing 08/02/2021 0944 by Keiko Zhang RN Outcome: Progressing [id number] Note* Care Plan Note - Dinorah Palencia [...] adult patient will be met Outcome: Progressing [id number] Consult note* Zoya Anna, PT - 08/01/2021 3:20 PM EDT PHYSICAL THERAPY PROGRESS SUMMARY Patient seen from 1452 to 1520 on 8A unit for 28 minute treatment. SUBJECTIVE: Patient Subjective/Goals: It feels good to get up and get out OBJECTIVE: Appearance: drain x 1, reyes, IV, GRINDING WHEEL OPERATOR Behavior: Awake, pleasant, cooperative, agreeable to therapy Pain: Site/Location: stomach; Pain Scale: 6/10 Pain Relief Interventions Implemented: Positioning and Rest, pt utilizes GRINDING WHEEL OPERATOR PRN, RN aware Mobility NA Dep Max Mod Min CG CS DS WV I Comment Roll to right sidelying x [...] NA = Not Assessed, I = Independent, WV = Modified Independent, Sup = Supervised, Set up = Physical Assistance for Set-up Only, Min = Minimal Assistance, Mod = Moderate Assistance, Max = Maximal assistance; Dep = Dependent; AROM = Active Range of Motion; PROM = Passive Range of Motion; MMT = Manual Muscle Test [id number] Note* Care Plan Note - Dinorah Palencia [...] adult patient will be met Outcome: Progressing [id number] Consult note* Josephine Hunter, OT - 07/31/2021 [...] and benefits of treatment Appearance: Oxygen, IV, GRINDING WHEEL OPERATOR, Drain JANETT and Reyes Alertness: Drowsy Affect: flat Cooperation/Behavior: cooperative Communication: Able to express needs with increased processing time Pain: Pain ratin/10, Location: abdomen Pain Relief Interventions Implemented: Positioning and activity Self Care: Assistance Level Dep Max Mod Min CG CS DS WV I Set-Up Comment Feeding x Grooming/Hygiene x Standing sink side Bathing:UB x Anticipated, recommend seated Bathing:LB x Anticipated, recommend seated Dressing:UB x Dressing: LB x Socks Toileting x Reyes Transfers/Bed Mobility: Assistance Level Dep Max Mod Min CG CS DS WV I Set-Up Comment Toilet Transfers Bed Transfers [...] Guard Assist/Supervision 4 - Non = Modified [place]/Independent ASSESSMENT: Anticipate patient will be appropriate for [...] NA = Not Assessed, I = Independent, WV = Modified Independent, Sup = Supervised, Set up = Physical Assistance for Set-up Only, Min = Minimal Assistance, Mod = Moderate Assistance, Max = Max assistance; Dep = Dependent; AROM = Active Range of Motion;PROM=Passive Rangeof Motion; MMT = Manual Muscle Test; UB = Upper Body; LB = Lower Body [id number] Consult note* Heladio Chun, PT - 07/31/2021 [...] you Patient Identified Goal(s): To return home PLUG PASTER Status: + drive, I 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 0 steps to bedroom/bathroom Assistance available: Spouse can assist PRN Equipment available: none OBJECTIVE: Appearance: Oxygen, IV, GRINDING WHEEL OPERATOR, Drain and Reyes Behavior: Drowsy Oriented x 4 Follows multple step commands consistently and without cues Pain: Site/Location: abdomen; Pain Scale: 7/10 Pain Relief Interventions Implemented: Encouraged patient to use GRINDING WHEEL OPERATOR Passive ROM: Not formally tested however observed [...] With Patients permission ordered no equipment via V[employer] Order. If any questions contact [facility] DME Provider at [phone]. 6 Clicks Basic Mobility PT 07/31/2021 Difficulty [...] NA = Not Assessed, I = Independent, WV = Modified Independent, Sup = Supervised, Set up = Physical Assistance for Set-up Only, Min = Minimal Assistance, Mod = Moderate Assistance, Max = Max assistance; Dep = Dependent; AROM = Active Range of Motion; PROM = Passive Range of Motion; MMT = Manual Muscle Test; LE = Lower Extremity [id number] Note* Care Plan Note - Dinorah Palencia [...] adult patient will be met Outcome: Progressing [id number] Nurse Surgical operation note* Irina Marie RN - 07/30/2021 7:58 PM EDT One 5fr stent placed in left hepatic duct, one 8 fr stent placed in accessory duct by Dr. Sarmiento intraoperatively. [id number] Nurse Note* Irina Marie RN - 07/30/2021 7:58 PM EDT One 5fr stent placed in left hepatic duct, one 8 fr stent placed in accessory duct by Dr. Sarmiento intraoperatively. documented in this [id number] Note* Brief Operative Note - Madeleine Hooks MD - 07/30/2021 2:08 PM EDT Brief Operative Note MAIN OR 07 Shahla Ruelas 41 year old female Surgical Contact Serial Number: [id number] Preoperative Diagnosis: Cyst of gallbladder [K82.8] Liver [...] Mercedes Soliman; Anya Fletcher; Juan Jon RN Line Decorator Nurse: Vitaly Reyes RN; Kraig Espinal; Rosa Seo RN; Yumiko Haji RN; Irina Marie RN; Juany Higginbotham RN Airport Planner: Madeleine Hooks MD Anesthesia: General Anesthesiologist: Neil Rodriguez MD; Uriel Hathaway DO CAA: Rina Childress ANIMAL HUSBANDRY TEACHER: Adrian Bermudez APRN-ANIMAL HUSBANDRY TEACHER; Jewel Vogel APRN-ANIMAL HUSBANDRY TEACHER; Mariel Ireland APRN-CRNA Trench Pipe Layer: Al Mascorro MD; Jean Ojeda MD Specimen(s): [...] by Madeleine Hooks MD 07/30/2021 11:09 PM [id number] Note* OP Note - Diamond Larson MD [...] Diamond Larson MD Co-Surgeon: Dennis Sarmiento MD Surgical Supplies Sterilizer: Madeleine Hooks MD (general surgery resident) Anesthesiologist: [...] portion of the procedure. Diamond Larson MD [facility] Work Phone: 1(189) 875-740705-27-2022 History and physical note* Madeleine Hooks MD [...] possible Madeleine Hooks MD 07/30/2021 11:08 AM [id number] History and physical note* Madeleine Hooks MD [...] MD 07/30/2021 11:08 AM documented in this [id number] Note* Anesthesia Attestation - Uriel Hathaway DO - 07/30/2021 11:01 AM EDT Anesthesia Attestation ATTESTATION OF INFORMED CONSENT FOR ANESTHESIA Anesthesia options were discussed with the patient and/or legal vaccine customer representative. The risks, benefits and alternatives were reviewed. Questions regarding anesthesia were answered. Patient and/or legal vaccine customer representative knows such anesthetics and procedures may be performed by Resident physicians, Certified Anesthesiologist Assistants, or Certified Nurse Anesthetists under the supervision of a physician. The patient /or the patient s legal representativeagree with the plan for anesthesia. [facility] Work Phone: 1(502) 258-572105-27-2022 Note* Blood Attestation - Uriel Hathaway DO - 07/30/2021 11:01 AM EDT Blood Attestation ATTESTATION OF INFORMED CONSENT FOR BLOOD The transfusion of blood and/or blood components were discussed with the patient and/or legal vaccine customer representative. The risks, benefits and alternatives were reviewed. Questions regarding blood transfusions were answered. The patient /or the patient s legal vaccine customer representative agree with the plan for transfusion of blood and/or blood components. [id number] Miscellaneous Notes* OP Note - Dennis Sarmiento MD - 07/30/2021 8:03 AM EDT Name: SHAHLA RUELAS MR#: [id number] [facility]#: [id number] Date of Procedure: 07/30/2021 ATTENDING SURGEON: Dennis [...] 6. Direct Biliary endoscopy with choledochoscope (CPT 81425). 7. Resection of hepatic duct polyp 8. Intraoperative cholangiogram. 9. Yovani-en-Y hepaticojejunostomy x2. 10. Vascularized omental pledget to anastomosis. 11. Intraoperative ultrasound of the liver and hepatic vessels (CPT: 31435) ANESTHESIA: General with endotracheal anesthesia. OPERATIVE INDICATIONS: [...] IVB left hepatic duct, which was excised. Yvoani-en-Y hepaticojejunostomy performed with a 70 cm Yovani [...] transected. A jejunojejunostomy was performed in a wwew-qa-tozv fashion with 3-0 Vicryl and 2-0 Ethibond [...] 3-0 PDS suture. Next, over both a 5-Emirati pediatric feeding tube for the smaller hepatic duct and an 8-Emirati pediatric feeding tube for the larger one, [...] is cleaned and dried. Prior to closure,a 19-Emirati round José drain was placed posterior to [...] Dict: 07/31/2021 22:40:26 TRANS: 08/01/2021 00:30:11 JOB: [id number] [employer]#: [id number] documented in this [id number] Note* OP Note - Dennis Sarmiento MD - 07/30/2021 8:03 AM EDT Name: SHAHLA RUELAS MR#: [id number] [facility]#: [id number] Date of Procedure: 07/30/2021 ATTENDING SURGEON: Dennis [...] 6. Direct Biliary endoscopy with choledochoscope (CPT 23995). 7. Resection of hepatic duct polyp 8. Intraoperative cholangiogram. 9. Yovani-en-Y hepaticojejunostomy x2. 10. Vascularized omental pledget to anastomosis. 11. Intraoperative ultrasound of the liver and hepatic vessels (CPT: 07464) ANESTHESIA: General with endotracheal anesthesia. OPERATIVE INDICATIONS: [...] transected. A jejunojejunostomy was performed in a ezks-pc-zbki fashion with 3-0 Vicryl and 2-0 Ethibond [...] used to perform an anti-obstructing suture of Reji as well as a mesenteric defect closure in a running locking fashion. The Yovani limb was then passed through the bare area of the colonic mesentery and brought up to both hepatic ducts. There was minimal tenstion The cystic duct stump was closed primarily with 3-0 PDS suture. Next, over both a 5-Emirati pediatric feeding tube for the smaller hepatic duct and an 8-Emirati pediatric feeding tube for the larger one, [...] is cleaned and dried. Prior to closure,a 19-Emirati round José drain was placed posterior to [...] Dict: 07/31/2021 22:40:26 TRANS: 08/01/2021 00:30:11 JOB: [id number] [employer]#: [id number] [employer] Work Phone: 1(367) 602-859205-13-2022 Miscellaneous Notes* Telephone Encounter - Trista Estrella RN - 07/16/2021 2:28 PM EDT Spoke with patient and advised that she start Ferrous Sulfate 325 mg every other day after surgery and follow up with pcp. Advised patient to call [facility] if unable to tolerate oral iron. Patient verbalized understanding. * Telephone Encounter - Leandra Snyder RPh - 07/16/2021 2:11 PM EDT [facility] Staff, Please contact patient re the following issue. We received a referral for anemia management from [facility] (patient to have surgery on 07/30). [...] hepatectomy partiel lobectomy 07/30 documented in this [id number] Instructions* Patient Instructions* Marcella Luevano APRN-CNP - [...] for pain. Please hold all Vitamin E, Califon 3, fish oil and herbal supplements for 1 week prior to surgery documented in this [id number] Miscellaneous Notes* PSE Appt H&P - Bee Wilde - 07/15/2021 12:58 PM EDT Patient was identified by name and date of . Bee Wilde Bill of rights provided to patient * PSE Appt H&P - Marcella Luevano APRN-POULTRY HATCHERY MAN - 07/14/2021 2:18 PM EDT Images from the original note were not included. Presurgical Evaluation Shahla Ruelas, [id number] 41 year old Female 07/15/2021 Height: 5' [...] Row Name Office Visit from 07/15/2021 in [facility] Pre-Surgical Evaluation History of sleep apnea? [...] old female who presented [place] with chief complaint of RUQ pain and nausea and some vomiting. RUQ US at OSH demonstrated complex cyst in GB fossa. CTA showed increased size of lesion since 2014. Started on ertapenem and ceftriaxone in setting of elevated WBC and allergies to cipro, PCNs, flagyl. Transferred to [facility] for GI consult and possible ERCP. Given [...] 6.0 3.02 8.3 25.5 85 15.9 202 04/22/212202 6.5 3.04 8.4 25.6 84 15.6 241 [...] INR 07/15/21 1257 1.01 04/26/21 0618 1.26 04/22/212202 1.30 04/22/21 2203 27 04/08/21 0538 1.19 [...] 5.6 2.4 0.30 0.7 73 24 18 02/22 0523 5.1 2.2 0.20 0.9 75 27 [...] MCGRATH 7:58 AM 07/16/2021 documented in this [id number] Miscellaneous Notes* OP Note - Leobardo Barry MD - 06/16/2021 10:26 AM EDT Images from the original note were not included. ENDO 05 Shahla Ruelas 41 year old female Surgical Contact Serial Number: [id number] Shahla Ruelas [id number] 06/16/2021 PRODUCE PRODUCTION TEAM MEMBER: Leobardo Barry MD ATTENDING:Leobardo Barry MD Procedure(s): [...] withdrawn from the patient. Bile duct obstruction [657551] 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 [5761436] PHANI PATH SPECIMEN SENT: yes SPECIMEN: Bile [...] were discussed with the patient and/or legal vaccine customer representative. The risks, benefits and alternatives were reviewed. Questions regarding blood transfusions were answered. The patient /or the patient s legal vaccine customer representative agree with the plan for transfusion of blood and/or blood components. * Anesthesia Attestation - Tamara Venegas MD - 06/16/2021 10:18 AM EDT Anesthesia Attestation ATTESTATION OF INFORMED CONSENT FOR ANESTHESIA Anesthesia options were discussed with the patient and/or legal vaccine customer representative. The risks, benefits and alternatives were reviewed. Questions regarding anesthesia were answered. Patient and/or legal vaccine customer representative knows such anesthetics and procedures may be performed by Resident physicians, Certified Anesthesiologist Assistants, or Certified Nurse Anesthetists under the supervision of a physician. The patient /or the patient s legal representativeagree with the plan for anesthesia. documented in this [id number] Miscellaneous Notes* PSE Call H&P - Leigh Ann Candelaria APRN-OSCAR - 06/10/2021 12:14 PM EDT Images from the original note were not included. Telephone History Shahla Ruelas, [id number] 06/11/2021 41 year old DOS- CBC Date [...] STOP-BANG Row Name [facility] History of sleep apnea? [...] old female who presented [place] with chief complaint of RUQ pain and nausea and some vomiting. RUQ US at OSH demonstrated complex cyst in GB fossa. CTA showed increased size of lesion since 2014. Started on ertapenem and ceftriaxone in setting of elevated WBC and allergies to cipro, PCNs, flagyl. Transferred to [facility] for GI consult and possible ERCP. Given [...] for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
[2024-05-22] MEDS: GABAPENTIN 300 MG CAPSULE 600 MG PO ×4 (00:25→20:01)
[2024-05-22] MEDS: LORAZEPAM 1 MG TABLET PO ×3 (00:26→16:59)
[2024-05-22] MEDS: PANTOPRAZOLE SODIUM 40 MG TABLET.DR PO ×3 (00:26→20:01)
[2024-05-22] MEDS: SULFAMETHOXAZOLE/TRIMETHOPRIM 800-160 MG TABLET 1 TAB PO ×3 (00:26→20:01)
[2024-05-22] MEDS: LACTATED RINGER'S SOLUTION 1,000 ML 100 ML IV ×3 (00:27→20:01)
[2024-05-22] MEDS: LACTATED RINGER'S SOLUTION 1,000 ML 500 ML IV (01:48)
[2024-05-22 05:19] LABS: Basophils Percent Auto 0.4 % (0.2-2.0); Eosinophils Absolute Auto 0.1 10^3/uL (0.0-0.7); Eosinophils Percent Auto 1.3 % (0.9-7.0); Hematocrit 31.9 % (36.0-48.0); Hemoglobin 10.5 g/dL (12.0-16.0); Immature Granulocytes Abs Auto 0.02 10^3/uL (0.00-0.03); Immature Granulocytes Pct Auto 0.3 % (0.0-0.5); Lymphocytes Percent Auto 14.4 % (20.5-60.0); Mean Corpuscular HGB Conc 32.9 g/dL (29.9-35.2); Mean Corpuscular Volume 88.1 fL (81.0-99.0); Mean Platelet Volume 10.4 fL (9.5-13.5); Monocytes Absolute Auto 0.6 10^3/uL (0.3-0.8); Monocytes Percent Auto 9.4 % (1.7-12.0); Neutrophils Percent Auto 74.2 % (43.0-75.0); Platelet Count 178 10^3/uL (150-450); Red Blood Count 3.62 10^6/uL (4.20-5.40); Red Cell Distribution Width 14.4 % (11.0-15.0); White Blood Count 6.7 10^3/uL (4.0-11.0)
[2024-05-22 06:23] LABS: Alanine Aminotransferase 29 U/L (14-59); Albumin Level 2.8 g/dL (3.4-5.0); Alkaline Phosphatase 89 U/L (46-116); Anion Gap 14.4; Aspartate Amino Transferase 27 U/L (15-37); BUN Creatinine Ratio 17.5; Bilirubin Total 0.6 mg/dL (0.2-1.0); Calcium 8.6 mg/dL (8.5-10.1); Carbon Dioxide 23.1 mmol/L (21.0-32.0); Chloride 102 mmol/L (98-107); Estimated GFR (African America 35 (>=60 mL/min/1.73m^2); Estimated GFR (Non-African Ame 29 (>=60 mL/min/1.73m^2); Globulin 2.9 g/dL; Glucose 90 mg/dL (74-106); Magnesium 1.5 mg/dL (1.8-2.4); Potassium 3.5 mmol/L (3.5-5.1); Sodium 136 mmol/L (136-145); Total Protein 5.7 g/dL (6.4-8.2)
[2024-05-22 06:24] LABS: Troponin I High Sensitivity 100.5 pg/mL (4.0-51.3)
--- OUTSIDE RECORDS SUMMARY | 2024-05-22 07:28 | XMS_ITS | CCD ---
Author Organization [facility] Care Team Providers Care Catalytic Case Operator Name Role Phone DIPESH MORRIS Unavailable Unavailable TAMARA CALERO Unavailable Unavailable Em SOLAR PANEL TECHNICIAN-MAILROOM PERSONNEL, Debo Unavailable Dennis Sarmiento MD Unavailable [phone] [place] SOLAR PANEL TECHNICIAN-MAILROOM PERSONNEL, Marcella Unavailable Tamara Calero Unavailable Dennis Sarmiento MD Unavailable [phone] [place]ro SOLAR PANEL TECHNICIAN-MAILROOM PERSONNEL, Marcella Unavailable [phone] BRITTNI, DR SHAH Primary Care Unavailable JAGJIT, [...] [employer] Unavailable Dennis Sarmiento MD Unavailable [phone] [place]ro SOLAR PANEL TECHNICIAN-MAILROOM PERSONNEL, Marcella Unavailable [phone] Abdias, DO Tamara Primary Care Provider DO Antolin Abarca Emergency Provider [phone] MD Geo Loomis Admit Provider MD Geo [...] Admitting Unavailable PROVIDER, UNKNOWN Attending Unavailable Chloé SANDERSN-MAILROOM PERSONNEL, Marcella Unavailable Priyanka Lemon Unavailable Abdias, Tamara Primary Care Provider MD Vivek Antoine Attending Provider Abdias, Tamara Primary Care Provider MD Vivek Antoine Attending Provider [phone] FARNAZ Mandel Primary Care Provider [phone] Noah [facility] Emergency Provider Abdias, DO Posada Primary Care Provider [phone] MD Vivek Antoine Attending Provider JUS SHRESTHA Attending Unavailable ABDIAS, TAMARA Hopson [...] MD Vivek Antoine Attending Provider MD Thierno [place] Emergency Provider MD Jean Paul Loomismi Admit Provider MD Geo Loomis Attending Provider DO Abdias [facility] Primary Care Provider MD Vivek Antoine Attending Provider [phone] Abdias JACKSON, Tamara Primary Care Provider Vivek Antoine MD Attending Provider BENITO PRADO Attending Unavailable BENITO PRADO Attending Unavailable Josette Mandel Primary Care Unavailable Delaney Antoineelrahman Attending Unavailab le Geo Loomis Admitting Unavailable Josette Mandel Primary Care Unavailable Bullimore Junie E Admitting Unavailable Bull[place] Junie E Attending Unavailable Abdias Tamara [facility] Unavailable Arash Vivek Admitting Unavailab le Prachi Antoinehman Attending Unavailab le Allergies Allergy Classification Reported Allergen(s) Allergy Type Date of Onset Reaction(s) Facility (20 sources) Ciprofloxacin; Translations: [CIPROFLOXACIN] Drug Allergy 11-02-19 13 Edema [employer] Work Phone: Comment on above: Patient not fully ce rtain of reaction but believes it caused flu-like symptoms (20 sources) metroNIDAZOLE; Translations: [METRONIDAZOLE] Drug Allergy 10-13-19 19 Edema [employer] Other Comment on above: Patient not sure of reaction but states a previous physician informed her she had reacted to it. (20 sources) Penicillins; Translations: [PENICILLINS] Propensity to adverse reactions to drug 10-13-19 19 Edema, Swelling [facility] (20 sources) Penicillin G; Translations: [PENICILLIN G] Drug Allergy 10-13-19 19 swelling [facility] (1 source) Ciprofloxacin Drug Allergy 10-06-19 [facility] (1 source) metroNIDAZOLE Drug Allergy 10-06-19 20 [facility] (1 source) Penicillin Drug Allergy 10-06-19 20 [facility] (12 sources) Quinolones (Antibiotic); Translations: [Quinolones] Propensity to adverse reactions 05-11-19 23 Fatigued [facility] (1 source) ciprofibrate; Translations: [CIPROFIBRATE] Drug Allergy 10-13-19 [facility] (1 source) Ciprofloxacin Drug Allergy 03-31-19 [facility] (1 source) metroNIDAZOLE Drug Allergy 03-31-19 [facility] (1 source) Penicillin Drug Allergy 03-31-19 [facility] Medications Current Medications Medication Drug [...] 07-30-2021 End: 07-31-2021 acetaminophen (TYLENOL) tabl et [id number] 200 actuat albuterol 0.09 mg/actuat metered dose [...] SUSHANT BRISENO take 1 capsule by mo [facility] three times daily hydrOXYzine Pamoate 50 MG take 1 capsule by mouth three times a day Oral for 30 Days Active take [facility] hydrOXYzine HCl 50 MG [...] 4 mg/0.1 mL nasal liquid Use 1 [place] in one nostril (alternate sides) as needed [...] as needed for pain Hydrocodone-Acetam inophen ([place]) 5-325 mg tablet Discontinued 1 TAB PO [...] Start: 11-22-2022 take 1 capsule by mo [facility] every twenty-four hours Colace 100 MG 1 [...] 6:45pm Start: 04-15-2023 take 1 capsule by [facility] every twelve hours Doxycycline Monohydrate 100 MG 1 capsule Orally every 12 hrs for 10 days Apr, Active Start: 12-20-2022 take 1 capsule by [facility] every twelve hours Doxycycline Monohydrate 100 MG [...] 12:11pm Start: 06-07-2021 take 1 capsule by [facility] once daily fluoxetine (PROZAC) 20 MG capsule [...] ) Start: 04-24-2023 take 1 capsule by [facility] once daily Levomilnacipran Active 40 MG PO [...] day; Note: Source Status: Taking; [facility] Start: 07-31-2021 take 200 mg by mouth [...] neoplasm] Episodic Other aftercare (1 source) Other [facility] (current) drug therapy; Translations: [OTH [facility] CURRENT DRUG THERAPY] Onset: 3 Episodic Other aftercare (1 source) [facility] (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; Translations: [SAS ARCHITECT CURRENT USE OF INSULIN] Onset: 3 Episodic [...] Range Facility Office Visiton 03-15-2024 Follow-up visit [id number] Shahla Arias 1980 F Date Provider Department Center 03/15/2024 [id number] PRADO [facility] Family History Problem Relation Age of Onset Hypertension Mother Cancer Mother Stroke Mother Family Status - Relation Status Age at Mother Level of Service:33636 AL OFFICE/OUTPATIENT ESTABLISHED LOW MDM 20 MIN Normal [facility] ECG 12 lead ECGon 11-09-2023 ECG 12 lead ECG [facility] [address] [place] [address] [place] [address] Electrocardiograph Report Signed Patient: Shahla Arias MR#: [id number] : 1980 Acct:[id number] Age/Sex: 43 / F ADM Date: 11/08/23 Loc: Room: [address] [place] [address] Type: ADM IN Attending Dr: Geo Loomis [...] in Inferior leads Confirmed by Julieth Kumar ([id number]) on 11/10/2023 5:37:37 PM Referred By: Electronically Signed By: Julieth Kumar Transcribed By: MUS Signed By Julieth Kumar DO 4 1737 Normal [facility] Alanine aminotransferase [En zymatic activity/volume] in Serum or PlasmaOrdered By: Art Pa on 11-08-2023 ALT [Catalytic activity/Vol] 18 U/L Normal 7-52 [facility] Comment on above: Performed By: #### E AISSATOU, CBC, CMP #### [facility] [address] [place] [id number] [place] Albumin [Mass/volume] in Ser um or Plasma by Bromocresol green (BCG) dye binding methoOrdered By: Art Pa on 11-08-2023 Albumin BCG dye [Mass/Vol] 4.1 g/dL 3.5-5.7 [facility] Alkaline phosphatase [Enzyma tic activity/volume] in Serum or PlasmaOrdered By: Art Pa on 11-08-2023 ALP [Catalytic activity/Vol] 93 U/L Normal 34-104 [facility] Comment on above: Performed By: #### E AISSATOU, CBC, CMP #### [address] Amphetamine Screen Ql (U)Ord ered By: Art Pa on 11-08-2023 Amphetamines Ql (U) Negative Negative [facility] Aspartate aminotransferase [ Enzymatic activity/volume] in Serum or PlasmaOrdered By: Art Pa on 11-08-2023 AST [Catalytic activity/Vol] 19 U/L Normal 13-39 [facility] Comment on above: Performed By: #### E AISSATOU, CBC, CMP #### [address] Automated basophil %Ordered By: Art Pa on 11-08-2023 Basophils/100 WBC (Bld) 0.7 % Normal . [facility] Comment on above: Performed By: #### E AISSATOU, CBC, CMP #### [address] Automated basophil countOrde red By: Art Pa on 11-08-2023 Basophils (Bld) [#/Vol] 0.1 10*3/uL Normal 0.0-0.2 [facility] Comment on above: Result Comment: PERF ORMED BY: [place] [address] PATHOLOGIST CHEMISTRY TUTOR DANNIE MOODY M.D. Performed By: #### E AISSATOU, CBC, CMP #### [facility] [address] [place] [address] Automated blood monocyte cou ntOrdered By: Art Pa on 11-08-2023 Monocytes (Bld) [#/Vol] 0.9 10*3/uL High 0.0-0.8 [facility] Comment on above: Performed By: #### E AISSATOU, CBC, CMP #### [facility] [address] [place] [address] Automated eosinophil %Ordere d By: Art Pa on 11-08-2023 Eosinophils/100 WBC (Bld) 0.1 % Normal . [facility] Comment on above: Performed By: #### E AISSATOU, CBC, CMP #### [address] Automated eosinophil countOr dered By: Art Pa on 11-08-2023 Eosinophils (Bld) [#/Vol] 0.0 10*3/uL Normal 0.0-0.45 [facility] Comment on above: Performed By: #### E AISSATOU, CBC, CMP #### [facility] [address] [place] [address] Automated monocyte %Ordered By: Art Pa on 11-08-2023 Monocytes/100 WBC (Bld) 7.5 % Normal . [facility] Comment on above: Performed By: #### E AISSATOU, CBC, CMP #### [address] Automated neutrophil %Ordere d By: Art Pa on 11-08-2023 Neutrophils/100 WBC (Bld) 69.7 % Normal . [facility] Comment on above: Performed By: #### E AISSATOU, CBC, CMP #### [facility] [address] [place] [address] [place] Bacteria [Presence] in Urine by AutomatedOrdered By: Art Pa on 11-08-2023 Bacteria Auto Ql (U) Rare [HPF] None Seen [facility] Barbiturates [Presence] in U rine by Screen methodOrdered By: Art Pa on 11-08-2023 Barbiturates Screen Ql (U) Negative Negative [facility] Benzodiazepines Screen Ql (U )Ordered By: rAt Pa on 11-08-2023 Benzodiazepines Ql (U) Negative Negative [facility] Benzoylecgonine [Presence] i n Urine by Screen methodOrdered By: Art Pa on 11-08-2023 Benzoylecgonine Screen Ql (U) Negative Negative [facility] Bilirubin Test strip Ql (U)O rdered By: Art Pa on 11-08-2023 Bilirubin Ql (U) Negative Negative [facility] Bilirubin.total [Mass/volume ] in Serum or PlasmaOrdered By: Art Pa on 11-08-2023 Bilirubin [Mass/Vol] 0.5 mg/dL Normal 0.3-1.0 [facility] Comment on above: Performed By: #### E AISSATOU, CBC, CMP #### [facility] [address] Calcium [Mass/volume] in Ser um or PlasmaOrdered By: Art Pa on 11-08-2023 Calcium [Mass/Vol] 9.6 mg/dL Normal 8.6-10.3 [facility] Comment on above: Performed By: #### E AISSATOU, CBC, CMP #### [facility] [address] [place] [address] [place] Cannabinoids [Presence] in U rine by Screen methodOrdered By: Art Pa on 11-08-2023 Cannabinoids Screen Ql (U) Negative Negative [facility] Comment on above: These are unconfirme d results and should not be used for legal purposes. Drug Cut-Off Concentration: AMPH 1000 ng/mL SANDEEP 200 ng/mL JERSON 200 ng/mL COCM 300 ng/mL OP 300 ng/mL PCP 25 ng/mL THC 20 ng/mL Carbon dioxide, total [Moles /volume] in Serum or PlasmaOrdered By: Art Pa on 11-08-2023 CO2 [Moles/Vol] 29.1 mmol/L Normal 21.0-31.0 [facility] Comment on above: Performed By: #### E AISSATOU, CBC, CMP #### [facility] [address] [place] [address] [place] Chloride [Moles/volume] in S monse or PlasmaOrdered By: Art Pa on 11-08-2023 Chloride [Moles/Vol] 101 mmol/L Normal 98-107 [facility] Comment on above: Performed By: #### E ASISATOU, CBC, CMP #### [facility] [address] [place] [address] [place] Cholesterol [Mass/volume] in Serum or PlasmaOrdered By: Geo Loomis on 11-08-2023 Cholesterol [Mass/Vol] 162 mg/dL Normal 140-200 [facility] Comment on above: Chol less than 200 m g/dl low riskChol 201-239 mg/dl borderline riskChol 240 mg/dl and greater high risk Order Comment: KAYLIE Erwin Comment use from ER Result Comment: Chol less than 200 mg/dl low risk Chol 201-239 mg/dl borderline risk Chol 240 mg/dl and greater high risk Performed By: #### V [id number], LIPID, TSH3 wRFLX #### [facility] [address] [place] [id number] [place] Cholesterol in LDL Calc [Mas s/Vol]Ordered By: Geo Loomis on 11-08-2023 Cholesterol in LDL [Mass/Vol] 86 mg/dL 0-100 [facility] Comment on above: LDL ATP III CLASSIFI CATIONLDL less than 100 mg/dL OptimalLDL 100-129 mg/dL Near or above optimalLDL 130-159 mg/dL Borderline highLDL 160-189 mg/dL HighLDL greater than 189 mg/dL Very high Cholesterol in VLDL Calc [Ma ss/Vol]Ordered By: Geo Loomis on 11-08-2023 Cholesterol in VLDL [Mass/Vol] 26 mg/dL [facility] Color of Urine by AutoOrdere d By: Art Pa on 11-08-2023 Color (U) Yellow Normal Yellow [facility] Comment on above: Order Comment: Name Collection Type:: Clean-Voided Midstream Performed By: #### C UU, ADDONUAPLUS, URDS, UHCG #### [facility] [address] [place] [address] [place] Complete Blood Count Auto Di ffon 11-08-2023 Mean Corpuscular HGB Conc 33.2 g/dL Normal 32.0-35.0 [facility] Comment on above: Performed By: #### E AISSATOU, CBC, CMP #### [facility] [address] [place] [id number] [place] Monocytes/100 WBC (Bld) 17.72 % Normal 0.00-20.00 [facility] Comment on above: Performed By: #### E AISSATOU CBC, CMP #### [address] NRBC% 0.0 /100{WBC} Normal 0-0.[address] [facility] Comment on above: Performed By: #### E AISSATOU CBC, CMP #### [address] Comprehensive Metabolic Pane michelle 11-08-2023 Albumin [Mass/Vol] 4.1 g/dL Normal 3.5-5.7 [facility] Comment on above: Performed By: #### E AISSATOU CBC, CMP #### [address] Creatinine Clr Calc Pharmacy 97.34 Normal [facility] Comment on above: Result Comment: PERF ORMED BY: [place] [address] PATHOLOGIST CHEMISTRY TUTOR DANNIE MOODY M.D. Performed By: #### E ROSENDO REYEZ, CMP #### [address] GFR/1.73 sq M.predicted MDRD (S/P/Bld) [Vol rate/Area] mL/min/{1.73_m2} Normal [facility] Comment on above: Performed By: #### E AISSATOU CBC, CMP #### [address] Creatinine [Mass/volume] in Serum or PlasmaOrdered By: Art Pa on 11-08-2023 Creatinine [Mass/Vol] 0.91 mg/dL Normal 0.60-1.20 [facility] Comment on above: Performed By: #### E AISSATOU CBC, CMP #### [address] Dipstick and Microscopicon 0 11-08-2023 Bacteria,Urine Rare Normal None Seen [facility] Comment on above: Order Comment: Name Collection Type:: Clean-Voided Midstream Performed By: #### C UU, ADDONUAPLUS, URDS, UHCG #### [facility] [address] [place] [address] [place] Bilirubin,Urine Negative Normal Negative [facility] Comment on above: Order Comment: Name Collection Type:: Clean-Voided Midstream Performed By: #### C UU, ADDONUAPLUS, URDS, UHCG #### [facility] [address] Glucose Ql (U) Normal Normal Normal [facility] Comment on above: Order Comment: Name Collection Type:: Clean-Voided Midstream Performed By: #### C UU, ADDONUAPLUS, URDS, UHCG #### [place] [address] [place] Hyaline Casts,Urine None Normal 0-8 [facility] Comment on above: Order Comment: Name Collection Type:: Clean-Voided Midstream Performed By: #### C UU, ADDONUAPLUS, URDS, UHCG #### [place] [address] [place] Mucus,Urine Rare Normal [facility] Comment on above: Order Comment: Name Collection Type:: Clean-Voided Midstream Performed By: #### C UU, ADDONUAPLUS, URDS, UHCG #### [place] [address] [place] Nitrite,Urine Negative Normal Negative [facility] Comment on above: Order Comment: Name Collection Type:: Clean-Voided Midstream Performed By: #### C UU, ADDONUAPLUS, URDS, UHCG #### [place] [address] [place] Occult Blood,Urine 1+ High Negative [facility] Comment on above: Order Comment: Name Collection Type:: Clean-Voided Midstream Performed By: #### C UU, ADDONUAPLUS, URDS, UHCG #### [place] [address] [place] Protein,Urine Negative Normal Negative [facility] Comment on above: Order Comment: Name Collection Type:: Clean-Voided Midstream Performed By: #### C UU, ADDONUAPLUS, URDS, UHCG #### [address] RBC,Urine 3-4 Normal 0-4 [facility] Comment on above: Order Comment: Name Collection Type:: Clean-Voided Midstream Performed By: #### C UU, ADDONUAPLUS, URDS, UHCG #### [address] Specificy [place],Urine 1.018 Normal 1.001-1.030 [facility] Comment on above: Order Comment: Name Collection Type:: Clean-Voided Midstream Performed By: #### C UU, ADDONUAPLUS, URDS, UHCG #### [address] Squamous Epithelial Cell,Urine 3-4 High 0-2 [facility] Comment on above: Order Comment: Name Collection Type:: Clean-Voided Midstream Performed By: #### C UU, ADDONUAPLUS, URDS, UHCG #### [address] Urobilinogen,Urine Normal Normal Normal [facility] Comment on above: Order Comment: Name Collection Type:: Clean-Voided Midstream Performed By: #### C UU, ADDONUAPLUS, URDS, UHCG #### [address] WBC,Urine 5-9 High 0-4 [facility] Comment on above: Order Comment: Name Collection Type:: Clean-Voided Midstream Performed By: #### C UU, ADDONUAPLUS, URDS, UHCG #### [address] Drug Screen,Urineon 11-08-19 24 Amphetamine Screen,Urine Negative Normal Negative [facility] Comment on above: Performed By: #### C UU, ADDONUAPLUS, URDS, UHCG #### [address] Barbiturate Screen,Urine Negative Normal Negative [facility] Comment on above: Performed By: #### C UU, ADDONUAPLUS, URDS, UHCG #### [address] Benzodiazepines Screen,Urine Negative Normal Negative [facility] Comment on above: Performed By: #### C UU, ADDONUAPLUS, URDS, UHCG #### [address] Cannabinoid Screen,Urine Negative Normal Negative [facility] Comment on above: Result Comment: Thes e are unconfirmed results and should not be used for legal purposes. Drug Cut-Off Concentration: AMPH 1000 ng/mL SANDEEP 200 ng/mL JERSON 200 ng/mL COCM 300 ng/mL OP 300 ng/mL PCP 25 ng/mL THC 20 ng/mL PERFORMED BY: [place] [address] PATHOLOGIST CHEMISTRY TUTOR DANNIE MOODY M.D. Performed By: #### C UU, ADDONUAPLUS, URDS, UHCG #### [address] Cocaine Screen,Urine Negative Normal Negative [facility] Comment on above: Performed By: #### C UU, ADDONUAPLUS, URDS, UHCG #### [address] Opiate Screen,Urine Negative Normal Negative [facility] Comment on above: Performed By: #### C UU, ADDONUAPLUS, URDS, UHCG #### [address] Phencyclidine Screen,Urine Negative Normal Negative [facility] Comment on above: Performed By: #### C UU, ADDONUAPLUS, URDS, UHCG #### [address] Epithelial cells.squamous [# /area] in Urine sediment by Automated countOrdered By: Art Pa on 11-08-2023 Epithelial cells.squamous Auto (Urine sed) [#/Area] 3-4 [HPF] High 0-2 [facility] Erythrocyte distribution wid th [Ratio] by Automated countOrdered By: Art Pa on 11-08-2023 Erythrocyte distribution width (RBC) [Ratio] 15.2 % Normal 11.9-15.3 [facility] Comment on above: Performed By: #### E AISSATOU, CBC, CMP #### [facility] [address] Erythrocytes [#/area] in Uri ne sediment by Automated countOrdered By: Art Pa on 11-08-2023 RBC Auto (Urine sed) [#/Area] 3-4 [HPF] 0-4 [facility] Erythrocytes [#/volume] in B lood by Automated countOrdered By: Art Pa on 11-08-2023 RBC (Bld) [#/Vol] 4.66 10*6/uL Normal 3.60-5.00 [facility] Comment on above: Performed By: #### E AISSATOU, CBC, CMP #### [facility] [address] [place] [address] [place] Ethanol [Mass/volume] in Ser um or PlasmaOrdered By: Art Pa on 11-08-2023 Ethanol [Mass/Vol] mg/dL Normal [facility] Comment on above: Performed By: #### E AISSATOU, CBC, CMP #### [facility] [address] [place] [address] [place] Ethanol [Mass/Vol] TNP [facility] Comment on above: Test not performed Ethyl Alcohol Profileon Percent Ethanol Not performed Normal [facility] Comment on above: Result Comment: PERF ORMED BY: [place] [address] PATHOLOGIST CHEMISTRY TUTOR DANNIE MOODY M.D. Performed By: #### E AISSATOU, CBC, CMP #### [facility] [address] [place] [address] [place] Glucose [Mass/volume] in Ser um or PlasmaOrdered By: Art Pa on 11-08-2023 Glucose [Mass/Vol] 102 mg/dL High 70-100 [facility] Comment on above: ADA recommended refe rence rangeRandom Glucose Reference Range is dependent on time and content of last meal. Glucose of more than 200 mg/dL in a nonstressed, ambulatory subject supports the diagnosis of Diabetes Mellitus. Result Comment: [place] om Glucose Reference Range is dependent on time and content of last meal. Glucose of more than 200 mg/dL in a nonstressed, ambulatory subject supports the diagnosis of Diabetes Mellitus. ADA recommended reference range Performed By: #### E AISSATOU, CBC, CMP #### [facility] [address] Glucose [Mass/volume] in Uri ne by Test stripOrdered By: Art Pa on 11-08-2023 Glucose Test strip (U) [Mass/Vol] Normal mg/dL Normal [facility] HCG ( test) IA.rapi d Ql (U)Ordered By: Art Pa on 11-08-2023 HCG ( test) Ql (U) Negative [facility] HCG,Urineon 11-08-2023 Beta HCG ( test) Ql (U) Negative Normal [facility] Comment on above: Order Comment: Name Collection Type:: Clean-Voided Midstream Result Comment: PERF ORMED BY: [place] [address] PATHOLOGIST CHEMISTRY TUTOR DANNIE MOODY M.D. Performed By: #### C UU, ADDONUAPLUS, URDS, UHCG #### [address] Hematocrit [Volume Fraction] of Blood by Automated countOrdered By: Art Pa on 11-08-2023 Hematocrit (Bld) [Volume fraction] 41.1 % Normal 34.0-46.4 [facility] Comment on above: Performed By: #### E AISSATOU, CBC, CMP #### [facility] [address] [place], [place] [id number] [place] Hemoglobin Test strip Ql (U) Ordered By: Art Pa on 11-08-2023 Hemoglobin Ql (U) 1+ High Negative [facility] Hemoglobin [Mass/volume] in BloodOrdered By: Art Pa on 11-08-2023 Hemoglobin (Bld) [Mass/Vol] 13.6 g/dL Normal 11.8-15.4 [facility] Comment on above: Performed By: #### E AISSATOU, CBC, CMP #### [facility] [address] [place] [address] [place] Hyaline casts [#/area] in Ur ine sediment by Automated countOrdered By: Art Pa on 11-08-2023 Hyaline casts Auto (Urine sed) [#/Area] None [LPF] 0-8 [facility] Ketones [Presence] in Urine by Test stripOrdered By: Art Pa on 11-08-2023 Ketones Ql (U) Negative Normal Negative [facility] Comment on above: Order Comment: Name Collection Type:: Clean-Voided Midstream Performed By: #### C UU, ADDONUAPLUS, URDS, UHCG #### [facility] [address] [place] [address] Leukocyte esterase [Presence ] in Urine by Test stripOrdered By: Art Pa on 11-08-2023 Leukocyte esterase Test strip Ql (U) 3+ High Negative [facility] Comment on above: Order Comment: Name Collection Type:: Clean-Voided Midstream Performed By: #### C UU, ADDONUAPLUS, URDS, UHCG #### [place] [address] [place] Leukocytes [#/area] in Urine sediment by Automated countOrdered By: Art Pa on 11-08-2023 WBC Auto (Urine sed) [#/Area] 5-9 [HPF] High 0-4 [facility] Leukocytes [#/volume] correc hemalatha for nucleated erythrocytes in Blood by Automated counOrdered By: Art Pa on 11-08-2023 WBC corrected for nucl RBC Auto (Bld) [#/Vol] 11.4 10*3/uL 3.8-11.6 [facility] Leukocytes [#/volume] in Blo od by Automated countOrdered By: Art Pa on 11-08-2023 WBC (Bld) [#/Vol] 11.4 10*3/uL Normal 3.8-11.6 [facility] Comment on above: Performed By: #### E AISSATOU, CBC, CMP #### [address] Lipid Panelon 11-08-2023 LDL Cholesterol,Calculated 86 mg/dL Normal 0-100 [facility] Comment on above: Order Comment: KAYLIE Erwin Comment use from ER Result Comment: LDL ATP III CLASSIFICATION LDL less than 100 mg/dL Optimal LDL 100-129 mg/dL Near or above optimal LDL 130-159 mg/dL Borderline high LDL 160-189 mg/dL High LDL greater than 189 mg/dL Very high Performed By: #### V [id number], LIPID, TSH3 wRFLX #### [address] Triglyceride w/Reflex 133 mg/dL Normal 0-149 [facility] Comment on above: Order Comment: KAYLIE Erwin Comment use from ER Result Comment: TRIG ATP III CLASSIFICATION TRIG less than 150 mg/dL Normal TRIG 150-199 mg/dL Borderline high TRIG 200-500 mg/dL High TRIG greater than 500 mg/dL Very high Standard traceable to the Center for Disease Conrtrol and Prevention (CDC) test method. Performed By: #### V [id number], LIPID, TSH3 wRFLX #### [address] VLDL CHOLESTEROL 26 mg/dL Normal [facility] Comment on above: Order Comment: KAYLIE Erwin Comment use from ER Performed By: #### V [id number], LIPID, TSH3 wRFLX #### [address] Lymphocytes [#/volume] in Bl ood by Automated countOrdered By: Art Pa on 11-08-2023 Lymphocytes (Bld) [#/Vol] 2.5 10*3/uL Normal 1.00-4.8 [facility] Comment on above: Performed By: #### E AISSATOU, CBC, CMP #### [facility] [address] [place] [address] [place] Lymphocytes/100 leukocytes i n Blood by Automated countOrdered By: Art Pa on 11-08-2023 Lymphocytes/100 WBC (Bld) 22.0 % Normal . [facility] Comment on above: Performed By: #### E AISSATOU CBC, CMP #### [address] MCH [Entitic mass] by Automa hemalatha countOrdered By: Art Pa on 11-08-2023 MCH (RBC) [Entitic mass] 29.3 pg Normal 24.7-34.3 [facility] Comment on above: Performed By: #### E AISSATOU, CBC, CMP #### [address] MCHC Auto (RBC) [Mass/Vol]Or dered By: Art Pa on 11-08-2023 MCHC (RBC) [Mass/Vol] 33.2 g/dL 32.0-35.0 [facility] MCV [Entitic volume] by Auto mated countOrdered By: Art Pa on 11-08-2023 MCV (RBC) [Entitic vol] 88.1 fL Normal 80-100 [facility] Comment on above: Performed By: #### E AISSATOU CBC, CMP #### [address] Monocyte distribution width [Entitic volume] in Blood by AutomatedOrdered By: Art Pa on 11-08-2023 Monocyte distribution width Auto (Bld) [Entitic vol] 17.72 % 0.00-20.00 [facility] Mucus [Presence] in Urine by AutomatedOrdered By: Art Pa on 11-08-2023 Mucus Auto Ql (U) Rare [LPF] [facility] Neutrophils [#/volume] in Bl ood by Automated countOrdered By: Art Pa on 11-08-2023 Neutrophils (Bld) [#/Vol] 7.9 10*3/uL High 1.8-7.7 [facility] Comment on above: Performed By: #### E AISSATOU, CBC, CMP #### [address] Nitrite Test strip Ql (U)Ord ered By: Art Pa on 11-08-2023 Nitrite Ql (U) Negative Negative [facility] No Panel InformationOrdered By: Art Pa on 11-08-2023 Estimated GFR (CKD-EPI) > 60.0 mL/Min [facility] Creatinine Clearance (Chem 97.34 [facility] Nucleated erythrocytes [Pres ence] in Blood by Automated countOrdered By: Art Pa on 11-08-2023 Nucleated RBC Auto Ql (Bld) 0.0 /100{WBC} 0-0.5 [facility] Opiates [Presence] in Urine by Screen methodOrdered By: Art Pa on 11-08-2023 Opiates Screen Ql (U) Negative Negative [facility] Phencyclidine Screen Ql (U)O rdered By: Art Pa on 11-08-2023 Phencyclidine Ql (U) Negative Negative [facility] Platelet mean volume [Entiti c volume] in Blood by Automated countOrdered By: Art Pa on 11-08-2023 Platelet mean volume (Bld) [Entitic vol] 7.9 fL Normal 6.3-10.7 [facility] Comment on above: Performed By: #### E AISSATOU, CBC, CMP #### [facility] [address] [place] [address] [place] Platelets [#/volume] in Bloo d by Automated countOrdered By: Art Pa on 11-08-2023 Platelets (Bld) [#/Vol] 286 10*3/uL Normal 150-450 [facility] Comment on above: Performed By: #### E AISSATOU, CBC, CMP #### [facility] [address] [place] [address] [place] Potassium [Moles/volume] in Serum or PlasmaOrdered By: Art Pa on 11-08-2023 Potassium [Moles/Vol] 4.1 mmol/L Normal 3.5-5.1 [facility] Comment on above: Performed By: #### E AISSATOU, CBC, CMP #### [facility] [address] [place] [address] [place] Protein Test strip (U) [Mass /Vol]Ordered By: Art Pa on 11-08-2023 Protein (U) [Mass/Vol] Negative Negative [facility] Protein [Mass/volume] in Ser um or PlasmaOrdered By: Art Pa on 11-08-2023 Protein [Mass/Vol] 7.5 g/dL Normal 6.4-8.9 [facility] Comment on above: Performed By: #### E AISSATOU CBC, CMP #### [facility] [address] Serum globulin measurement b y calculation (mass/volume)Ordered By: Art Pa on 11-08-2023 Globulin (S) [Mass/Vol] 3.4 g/dL Normal [facility] Comment on above: Performed By: #### E AISSATOU CBC, CMP #### [address] Serum or plasma albumin/glob ulin mass ratioOrdered By: Art Pa on 11-08-2023 Albumin/Globulin [Mass ratio] 1.2 {ratio} Normal [facility] Comment on above: Performed By: #### E AISSATOU CBC, CMP #### [facility] [address] [place] [address] Serum or plasma anion gap de terminationOrdered By: Art Pa on 11-08-2023 Anion gap [Moles/Vol] 10.0 mmol/L Normal 6.0-15.0 [facility] Comment on above: Performed By: #### E AISSATOU CBC, CMP #### [facility] [address] [place] [address] Serum or plasma high density lipoprotein (HDL) cholesterol measurementOrdered By: Geo Loomis on 11-08-2023 Cholesterol in HDL [Mass/Vol] 49 mg/dL Normal 23-92 [facility] Comment on above: HDL CHOL ATP-III CLA SSIFICATION Cardiovascular RiskHDL > or equal to 60 mg/dL LOWHDL < 40 mg/dL HIGH Order Comment: KAYLIE Erwin Comment use from ER Result Comment: HDL CHOL ATP-III CLASSIFICATION Cardiovascular Risk HDL > or equal to 60 mg/dL LOW HDL < 40 mg/dL HIGH Performed By: #### V [id number], LIPID, TSH3 wRFLX #### [facility] [address] Serum or plasma total choles terol/high density lipoprotein (HDL) cholesterol mass ratOrdered By: Geo Loomis on 11-08-2023 Cholesterol.total/Polina sterol in HDL [Mass ratio] 3.3 {ratio} Normal <5.0 [facility] Comment on above: Order Comment: KAYLIE Erwin Comment use from ER Performed By: #### V [id number], LIPID, TSH3 wRFLX #### [facility] [address] Sodium [Moles/volume] in Ser um or PlasmaOrdered By: Art Pa on 11-08-2023 Sodium [Moles/Vol] 136 mmol/L Normal 136-145 [facility] Comment on above: Performed By: #### E AISSATOU, CBC, CMP #### [facility] [address] [place] [address] Specific gravity Test strip (U) [Rel density]Ordered By: Art Pa on 11-08-2023 Specific gravity (U) [Rel density] 1.018 1.001-1.030 [facility] Thyroid Stim Hormone w/Rflxo n 11-08-2023 Thyroid Stim Hormone w/Rflx 3.00 u[iU]/mL Normal 0.45-5.33 [facility] Comment on above: Order Comment: KAYLIE Erwin Comment use from ER Performed By: #### V [id number], LIPID, TSH3 wRFLX #### [facility] [address] [place] [address] [place] Thyrotropin [Units/volume] i n Serum or PlasmaOrdered By: Geo Loomis on 11-08-2023 TSH Qn 3.00 m[IU]/L 0.45-5.33 [facility] Triglyceride [Mass/volume] i n Serum or PlasmaOrdered By: Geo Loomis on 11-08-2023 Triglyceride [Mass/Vol] 133 mg/dL 0-149 [facility] Comment on above: TRIG ATP III CLASSIF ICATIONTRIG less than 150 mg/dL NormalTRIG 150-199 mg/dL Borderline highTRIG 200-500 mg/dL High TRIG greater than 500 mg/dL Very highStandard traceable to the Center for Disease Conrtrol and Prevention (CDC) test method. Urea nitrogen [Mass/volume] in Serum or PlasmaOrdered By: Art Pa on 11-08-2023 Urea nitrogen [Mass/Vol] 13 mg/dL Normal 7-25 [facility] Comment on above: Performed By: #### E AISSATOU, CBC, CMP #### [facility] [address] Urine Cultureon 11-08-2023 Bacteria identified Cx Nom (U) >100,000 colonies/ml mixed bacterial skin contaminants 2 Days PERFORMED BY: [place] [address] PATHOLOGIST CHEMISTRY TUTOR DANNIE MOODY M.D. Normal [facility] Comment on above: Performed By: #### C UU, ADDONUAPLUS, URDS, UHCG #### [facility] [address] [place] [address] Urine appearanceOrdered By: Art Pa on 11-08-2023 Appearance (U) Clear Normal Clear [facility] Comment on above: Order Comment: Name Collection Type:: Clean-Voided Midstream Performed By: #### C UU, ADDONUAPLUS, URDS, UHCG #### [facility] [address] [place] [address] Urine culture routineOrdered By: Art Pa on 11-08-2023 Bacteria identified Cx Nom (U) 2 Days [facility] Urobilinogen Test strip (U) [Mass/Vol]Ordered By: Art Pa on 11-08-2023 Urobilinogen (U) [Mass/Vol] Normal mg/dL Normal [facility] Vitamin D 25 Hydroxy Totalon 11-08-2023 Vitamin D 25 Hydroxy Total 49.5 ng/mL Normal 30-100 [facility] Comment on above: Order Comment: KAYLIE Erwin Comment use from ER Result Comment: JAYSON MIN D STATUS 25(OH)VITAMIN D RANGE (ng/mL) Deficient <20 Insufficient 20 to <30 Sufficient 30 to 100 Reference: Braeden MF,Marsha PRIEST, Ez MULTANI, et al. Evaluation,treatment, and prevention of vitamin D deficiency; an Endocrine Society clinical practice guideline. JCEM. 2010; 96(7):1911-30. PERFORMED BY: [facility] [address] [place] [address] PATHOLOGIST CHEMISTRY TUTOR DANNIE MOODY M.D. Performed By: #### V [id number], LIPID, TSH3 wRFLX #### [facility] [address] Vitamin D+Metabolites [Mass/ volume] in Serum or PlasmaOrdered By: Geo Loomis on 11-08-2023 Vitamin D+Metabolites [Mass/Vol] 49.5 ng/mL 30-100 [facility] Comment on above: VITAMIN D STATUS 25( OH)VITAMIN D RANGE (ng/mL) Deficient <20 Insufficient 20 to <30Sufficient 30 to 100Reference: Braeden MF,Marsha NC, Ez MULTANI, et al. Evaluation,treatment, and prevention of vitamin D deficiency; an Endocrine Society clinical practice guideline. JCEM. 2010; 96(7):1911-30. pH of Urine by Test stripOrd ered By: Art Pa on 11-08-2023 pH (U) 5.0 [pH] Normal 5.0-9.0 [facility] Comment on above: Order Comment: Name Collection Type:: Clean-Voided Midstream Performed By: #### C UU, ADDONUAPLUS, URDS, UHCG #### [facility] [address] [place] [id number] [facility] Office Visiton 06-28-2023 Follow-up visit [id number] Shahla Arias 1980 F Date Provider Department Center 06/28/2023 [facility]O [facility] Family History Problem Relation Age of Onset Hypertension Mother Cancer Mother Stroke Mother Family Status - Relation Status Age at Mother Level of Service:18810 [place] OFFICE/OUTPATIENT NEW MODERATE MDM 45 MINUTES Normal [facility] Alanine aminotransferase [En zymatic activity/volume] in Serum or PlasmaOrdered By: Antolin Abarca on 05-24-2022 ALT [Catalytic activity/Vol] 15 U/L 7-52 [facility] Albumin [Mass/volume] in Ser um or Plasma by Bromocresol green (BCG) dye binding methoOrdered By: Antolin Abarca on 05-24-2022 Albumin BCG dye [Mass/Vol] 4.0 g/dL 3.5-5.7 [facility] Alkaline phosphatase [Enzyma tic activity/volume] in Serum or PlasmaOrdered By: Antolin Abarca on 05-24-2022 ALP [Catalytic activity/Vol] 61 U/L 34-104 [facility] Amphetamine Screen Ql (U)Ord ered By: Antolin Abarca on 05-24-2022 Amphetamines Ql (U) Negative Negative [facility] Aspartate aminotransferase [ Enzymatic activity/volume] in Serum or PlasmaOrdered By: Antolin Abarca on 05-24-2022 AST [Catalytic activity/Vol] 19 U/L 13-39 [facility] Automated epithelial cells c ount in urine sediment (number/area)Ordered By: Antolin Abarca on 05-24-2022 Epithelial cells Auto (Urine sed) [#/Area] Rare [HPF] 0-2 [facility] Automated erythrocytes count in urine sediment (number/area)Ordered By: Antolin Abarca on 05-24-2022 RBC Auto (Urine sed) [#/Area] 1-2 [HPF] 0-4 [facility] Automated leukocytes count i n urine sediment (number/area)Ordered By: Antolin Abarca on 05-24-2022 WBC Auto (Urine sed) [#/Area] 1-2 [HPF] 0-4 [facility] Automated urine hyaline cast s count (number/volume)Ordered By: Antolin Abarca on 05-24-2022 Hyaline casts Auto (U) [#/Vol] Rare [LPF] 0-1 [facility] Barbiturates [Presence] in U rine by Screen methodOrdered By: Antolin Abarca on 05-24-2022 Barbiturates Screen Ql (U) Negative Negative [facility] Basophils Auto (Bld) [#/Vol] Ordered By: Antolin Abarca on 05-24-2022 Basophils (Bld) [#/Vol] 0.0 10*3/uL 0.0-0.2 [facility] Basophils/100 WBC Auto (Bld) Ordered By: Antolin Abarca on 05-24-2022 Basophils/100 WBC (Bld) 0.4 % . [facility] Benzodiazepines Screen Ql (U )Ordered By: Antolin Abarca on 05-24-2022 Benzodiazepines Ql (U) Negative Negative [facility] Benzoylecgonine [Presence] i n Urine by Screen methodOrdered By: Antolin Abarca on 05-24-2022 Benzoylecgonine Screen Ql (U) Negative Negative [facility] Bilirubin Test strip Ql (U)O rdered By: Antolin Abarca on 05-24-2022 Bilirubin Ql (U) Negative Negative [facility] Bilirubin.total [Mass/volume ] in Serum or PlasmaOrdered By: Antolin Abarca on 05-24-2022 Bilirubin [Mass/Vol] 0.3 mg/dL 0.3-1.0 [facility] COVID-19 SOFIAOrdered By: Hay Abarca on 05-24-2022 SARS-CoV+SARS-CoV-2 (COVID-19) Ag IA.rapid Ql (Resp) Negative Negative [facility] Comment on above: This is a duplicate Rayna SARS Antigen (SKYLA) result to be used for statistical tracking purpose only. Calcium [Mass/volume] in Ser um or PlasmaOrdered By: Antolin Abarca on 05-24-2022 Calcium [Mass/Vol] 9.3 mg/dL 8.6-10.3 [facility] Cannabinoids [Presence] in U rine by Screen methodOrdered By: Antolin Abarca on 05-24-2022 Cannabinoids Screen Ql (U) Negative Negative [facility] Comment on above: These are unconfirme d results and should not be used for legal purposes. Drug Cut-Off Concentration: AMPH 1000 ng/mL SANDEEP 200 ng/mL JERSON 200 ng/mL COCM 300 ng/mL OP 300 ng/mL PCP 25 ng/mL THC 20 ng/mL Carbon dioxide, total [Moles /volume] in Serum or PlasmaOrdered By: Antolin Abarca on 05-24-2022 CO2 [Moles/Vol] 20.9 mmol/L 21.0-31.0 [facility] Chloride [Moles/volume] in S monse or PlasmaOrdered By: Antolin Abarca on 05-24-2022 Chloride [Moles/Vol] 108 mmol/L 98-107 [facility] Color Auto (U)Ordered By: Hay Abarca on 05-24-2022 Color (U) Yellow Yellow [facility] Creatinine [Mass/volume] in Serum or PlasmaOrdered By: Antolin Abarca on 05-24-2022 Creatinine [Mass/Vol] 0.79 mg/dL 0.60-1.20 [facility] Eosinophils Auto (Bld) [#/Vo l]Ordered By: Antolin Abarca on 05-24-2022 Eosinophils (Bld) [#/Vol] 0.3 10*3/uL 0.0-0.45 [facility] Eosinophils/100 WBC Auto (Bl d)Ordered By: Antolin Abarca on 05-24-2022 Eosinophils/100 WBC (Bld) 4.2 % . [facility] Erythrocyte distribution wid th Auto (RBC) [Ratio]Ordered By: Antolin Abarca on 05-24-2022 Erythrocyte distribution width (RBC) [Ratio] 15.6 % 11.9-15.3 [facility] Ethanol [Mass/volume] in Ser um or PlasmaOrdered By: Antolin Abarca on 05-24-2022 Ethanol [Mass/Vol] 163 mg/dL [facility] Ethanol [Mass/Vol] 0.163 % [facility] Globulin Calc (S) [Mass/Vol] Ordered By: Antolin Abarca on 05-24-2022 Globulin (S) [Mass/Vol] 2.8 g/dL [facility] Glucose [Mass/volume] in Ser um or PlasmaOrdered By: Antolin Abarca on 05-24-2022 Glucose [Mass/Vol] 83 mg/dL 74-109 [facility] Comment on above: ADA recommended refe rence rangeRandom Glucose Reference Range is dependent on time and content of last meal. Glucose of more than 200 mg/dL in a nonstressed, ambulatory subject supports the diagnosis of Diabetes Mellitus. HCG ( test) IA.rapi d Ql (U)Ordered By: Antolin Abarca on 05-24-2022 HCG ( test) Ql (U) Negative [facility] Hematocrit Auto (Bld) [Volum e fraction]Ordered By: Antolin Abarca on 05-24-2022 Hematocrit (Bld) [Volume fraction] 40.1 % 34.0-46.4 [facility] Hemoglobin [Mass/volume] in BloodOrdered By: Antolin Abarca on 05-24-2022 Hemoglobin (Bld) [Mass/Vol] 13.2 g/dL 11.8-15.4 [facility] Ketones Auto test strip (U) [Mass/Vol]Ordered By: Antolin Abarca on 05-24-2022 Ketones (U) [Mass/Vol] Negative Negative [facility] - Chemistry and C hemistry - challengeOrdered By: Antolin Abarca on 05-24-2022 GFR/1.73 sq M.predicted MDRD (S/P/Bld) [Vol rate/Area] mL/min/{1.73_m2} [facility] Leukocytes [#/volume] correc hemalatha for nucleated erythrocytes in Blood by Automated counOrdered By: Antolin Abarca on 05-24-2022 WBC corrected for nucl RBC Auto (Bld) [#/Vol] 7.0 10*3/uL 3.8-11.6 [facility] Lymphocytes Auto (Bld) [#/Vo l]Ordered By: Antolin Abarca on 05-24-2022 Lymphocytes (Bld) [#/Vol] 2.1 10*3/uL 1.00-4.8 [facility] Lymphocytes/100 WBC Auto (Bl d)Ordered By: Antolin Abarca on 05-24-2022 Lymphocytes/100 WBC (Bld) 29.2 % . [facility] MCH Auto (RBC) [Entitic mass ]Ordered By: Antolin Abarca on 05-24-2022 MCH (RBC) [Entitic mass] 29.2 pg 24.7-34.3 [facility] MCHC Auto (RBC) [Mass/Vol]Or dered By: Antolin Abarca on 05-24-2022 MCHC (RBC) [Mass/Vol] 33.0 g/dL 32.0-35.0 [facility] MCV Auto (RBC) [Entitic vol] Ordered By: Antolin Abarca on 05-24-2022 MCV (RBC) [Entitic vol] 88.6 fL 80-100 [facility] Monocyte distribution width [Entitic volume] in Blood by AutomatedOrdered By: Antolin Abarca on 05-24-2022 Monocyte distribution width Auto (Bld) [Entitic vol] 17.73 % 0.00-20.00 [facility] Monocytes Auto (Bld) [#/Vol] Ordered By: Antolin Abarca on 05-24-2022 Monocytes (Bld) [#/Vol] 0.6 10*3/uL 0.0-0.8 [facility] Monocytes/100 WBC Auto (Bld) Ordered By: Antolin Abarca on 05-24-2022 Monocytes/100 WBC (Bld) 8.2 % . [facility] Neutrophils Auto (Bld) [#/Vo l]Ordered By: Antolin Abarca on 05-24-2022 Neutrophils (Bld) [#/Vol] 4.1 10*3/uL 1.8-7.7 [facility] Neutrophils/100 WBC Auto (Bl d)Ordered By: Antolin Abarca on 05-24-2022 Neutrophils/100 WBC (Bld) 58.0 % . [facility] Nitrite Test strip Ql (U)Ord ered By: Antolin Abarca on 05-24-2022 Nitrite Ql (U) Negative Negative [facility] No Panel InformationOrdered By: Antolin Abarca on 05-24-2022 Pharmacy Creatinine Clearance (Chem 107.39 [facility] SARS Antigen (LFIA) [facility] Nucleated erythrocytes [Pres ence] in Blood by Automated countOrdered By: Antolin Abarca on 05-24-2022 Nucleated RBC Auto Ql (Bld) 0.0 /100{WBC} 0-0.5 [facility] Opiates [Presence] in Urine by Screen methodOrdered By: Antolin Abarca on 05-24-2022 Opiates Screen Ql (U) Negative Negative [facility] Phencyclidine Screen Ql (U)O rdered By: Antolin Abarca on 05-24-2022 Phencyclidine Ql (U) Negative Negative [facility] Platelet mean volume Auto (B ld) [Entitic vol]Ordered By: Antolin Abarca on 05-24-2022 Platelet mean volume (Bld) [Entitic vol] 7.3 fL 6.3-10.7 [facility] Platelets Auto (Bld) [#/Vol] Ordered By: Antolin Abarca on 05-24-2022 Platelets (Bld) [#/Vol] 285 10*3/uL 150-450 [facility] Potassium [Moles/volume] in Serum or PlasmaOrdered By: Antolin Abarca on 05-24-2022 Potassium [Moles/Vol] 4.4 mmol/L 3.5-5.1 [facility] Protein Auto test strip (U) [Mass/Vol]Ordered By: Antolin Abarca on 05-24-2022 Protein (U) [Mass/Vol] Negative Negative [facility] Protein [Mass/volume] in Ser um or PlasmaOrdered By: Antolin Abarca on 05-24-2022 Protein [Mass/Vol] 6.8 g/dL 6.4-8.9 [facility] RBC Auto (Bld) [#/Vol]Ordere d By: Antolin Abarca on 05-24-2022 RBC (Bld) [#/Vol] 4.53 10*6/uL 3.60-5.00 [facility] Serum or plasma albumin/glob ulin mass ratioOrdered By: Antolin Abarca on 05-24-2022 Albumin/Globulin [Mass ratio] 1.4 {ratio} [facility] Serum or plasma anion gap de terminationOrdered By: Antolin Abarca on 05-24-2022 Anion gap [Moles/Vol] 13.5 mmol/L 6.0-15.0 [facility] Sodium [Moles/volume] in Ser um or PlasmaOrdered By: Antolin Abarca on 05-24-2022 Sodium [Moles/Vol] 138 mmol/L 136-145 [facility] Specific gravity Auto test s trip (U) [Rel density]Ordered By: Antolin Abarca on 05-24-2022 Specific gravity (U) [Rel density] 1.000 1.001-1.030 [facility] Urea nitrogen [Mass/volume] in Serum or PlasmaOrdered By: Antolin Abarca on 05-24-2022 Urea nitrogen [Mass/Vol] 8 mg/dL 7-25 [facility] Urine bacteria detection by automated methodOrdered By: Antolin Abarca on 05-24-2022 Bacteria Auto Ql (U) Rare None Seen [facility] Urine clarity by refractomet ry automatedOrdered By: Antolin Abarca on 05-24-2022 Clarity Refractometry automated (U) Clear Clear [facility] Urine glucose measurement by automated test strip (mass/volume)Ordered By: Antolin Abarca on 05-24-2022 Glucose Auto test strip (U) [Mass/Vol] Normal mg/dL Normal [facility] Urine hemoglobin detection b y automated test stripOrdered By: Antolin Abarca on 05-24-2022 Hemoglobin Auto test strip Ql (U) 2+ Negative [facility] Urine leukocyte esterase det ection by automated test stripOrdered By: Antolin Abarca on 05-24-2022 Leukocyte esterase Auto test strip Ql (U) 2+ Negative [facility] Urobilinogen Auto test strip (U) [Mass/Vol]Ordered By: Antolin Abarca on 05-24-2022 Urobilinogen (U) [Mass/Vol] Normal mg/dL Normal [facility] WBC Auto (Bld) [#/Vol]Ordere d By: Antolin Abarca on 05-24-2022 WBC (Bld) [#/Vol] 7.0 10*3/uL 3.8-11.6 [facility] pH Auto test strip (U)Ordere d By: Antolin Abarca on 05-24-2022 pH (U) 6.0 [pH] 5.0-9.0 [facility] Cholesterol [Mass/volume] in Serum or PlasmaOrdered By: Geo Loomis on 05-11-2022 Cholesterol [Mass/Vol] 154 mg/dL 140-200 [facility] Comment on above: Chol less than 200 m g/dl low riskChol 201-239 mg/dl borderline riskChol 240 mg/dl and greater high risk Cholesterol in LDL Calc [Mas s/Vol]Ordered By: Geo Loomis on 05-11-2022 Cholesterol in LDL [Mass/Vol] 76 mg/dL 0-100 [facility] Comment on above: LDL ATP III CLASSIFI CATIONLDL less than 100 mg/dL OptimalLDL 100-129 mg/dL Near or above optimalLDL 130-159 mg/dL Borderline highLDL 160-189 mg/dL HighLDL greater than 189 mg/dL Very high Cholesterol in VLDL Calc [Ma ss/Vol]Ordered By: Geo Loomis on 05-11-2022 Cholesterol in VLDL [Mass/Vol] 24 mg/dL [facility] Serum or plasma high density lipoprotein (HDL) cholesterol measurementOrdered By: Geo Loomis on 05-11-2022 Cholesterol in HDL [Mass/Vol] 54 mg/dL 35-85 [facility] Comment on above: HDL CHOL ATP-III CLA SSIFICATION Cardiovascular RiskHDL > or equal to 60 mg/dL LOWHDL < 40 mg/dL HIGH Serum or plasma total choles terol/high density lipoprotein (HDL) cholesterol mass ratOrdered By: Geo Loomis on 05-11-2022 Cholesterol.total/Polina sterol in HDL [Mass ratio] 2.9 {ratio} <5.0 [facility] Thyrotropin [Units/volume] i n Serum or PlasmaOrdered By: Geo Loomis on 05-11-2022 TSH Qn 1.87 m[IU]/L 0.45-5.33 [facility] Triglyceride [Mass/volume] i n Serum or PlasmaOrdered By: Geo Loomis on 05-11-2022 Triglyceride [Mass/Vol] 122 mg/dL 0-149 [facility] Comment on above: TRIG ATP III CLASSIF ICATIONTRIG less than 150 mg/dL NormalTRIG 150-199 mg/dL Borderline highTRIG 200-500 mg/dL High TRIG greater than 500 mg/dL Very highStandard traceable to the Center for Disease Conrtrol and Prevention (CDC) test method. Vitamin D+Metabolites [Mass/ volume] in Serum or PlasmaOrdered By: Geo Loomis on 05-11-2022 Vitamin D+Metabolites [Mass/Vol] 22.0 ng/mL 30-100 [facility] Comment on above: VITAMIN D STATUS [...] 05-10-2022 ALT [Catalytic activity/Vol] 17 U/L 7-52 [facility] Albumin [Mass/volume] in Ser um or Plasma by Bromocresol green (BCG) dye binding methoOrdered By: Antolin Abarca on 05-10-2022 Albumin BCG dye [Mass/Vol] 4.0 g/dL 3.5-5.7 [facility] Alkaline phosphatase [Enzyma tic activity/volume] in Serum or PlasmaOrdered By: Antolin Abarca on 05-10-2022 ALP [Catalytic activity/Vol] 63 U/L 34-104 [facility] Amphetamine Screen Ql (U)Ord ered By: Antolin Abarca on 05-10-2022 Amphetamines Ql (U) Negative Negative [facility] Aspartate aminotransferase [ Enzymatic activity/volume] in Serum or PlasmaOrdered By: Antolin Abarca on 05-10-2022 AST [Catalytic activity/Vol] 17 U/L 13-39 [facility] Automated erythrocytes count in urine sediment (number/area)Ordered By: Antolin Abarca on 05-10-2022 RBC Auto (Urine sed) [#/Area] 20-49 [HPF] 0-4 [facility] Automated leukocytes count i n urine sediment (number/area)Ordered By: Antolin Abarca on 05-10-2022 WBC Auto (Urine sed) [#/Area] 20-49 [HPF] 0-4 [facility] Automated urine hyaline cast s count (number/volume)Ordered By: Antolin Abarca on 05-10-2022 Hyaline casts Auto (U) [#/Vol] None seen [LPF] 0-1 [facility] Barbiturates [Presence] in U rine by Screen methodOrdered By: Antolin Abarca on 05-10-2022 Barbiturates Screen Ql (U) Negative Negative [facility] Basophils Auto (Bld) [#/Vol] Ordered By: Antolin Abarca on 05-10-2022 Basophils (Bld) [#/Vol] 0.1 10*3/uL 0.0-0.2 [facility] Basophils/100 WBC Auto (Bld) Ordered By: Antolin Abarca on 05-10-2022 Basophils/100 WBC (Bld) 0.8 % . [facility] Benzodiazepines Screen Ql (U )Ordered By: Antolin Abarca on 05-10-2022 Benzodiazepines Ql (U) Negative Negative [facility] Benzoylecgonine [Presence] i n Urine by Screen methodOrdered By: Antolin Abarca on 05-10-2022 Benzoylecgonine Screen Ql (U) Negative Negative [facility] Bilirubin Test strip Ql (U)O rdered By: Antolin Abarca on 05-10-2022 Bilirubin Ql (U) Negative Negative [facility] Bilirubin.total [Mass/volume ] in Serum or PlasmaOrdered By: Antolin Abarca on 05-10-2022 Bilirubin [Mass/Vol] 0.9 mg/dL 0.3-1.0 [facility] Calcium [Mass/volume] in Ser um or PlasmaOrdered By: Antolin Abarca on 05-10-2022 Calcium [Mass/Vol] 9.5 mg/dL 8.6-10.3 [facility] Cannabinoids [Presence] in U rine by Screen methodOrdered By: Antolin Abarca on 05-10-2022 Cannabinoids Screen Ql (U) Negative Negative [facility] Comment on above: These are unconfirme d results and should not be used for legal purposes. Drug Cut-Off Concentration: AMPH 1000 ng/mL SANDEEP 200 ng/mL JERSON 200 ng/mL COCM 300 ng/mL OP 300 ng/mL PCP 25 ng/mL THC 20 ng/mL Carbon dioxide, total [Moles /volume] in Serum or PlasmaOrdered By: Antolin Abarca on 05-10-2022 CO2 [Moles/Vol] 28.1 mmol/L 21.0-31.0 [facility] Casts typing in urine sedime nt by light microscopyOrdered By: Antolin Abarca on 05-10-2022 Casts LM Nom (Urine sed) None seen [LPF] None Seen [facility] Chloride [Moles/volume] in S monse or PlasmaOrdered By: Antolin Abarca on 05-10-2022 Chloride [Moles/Vol] 103 mmol/L 98-107 [facility] Color Auto (U)Ordered By: Hay Abarca on 05-10-2022 Color (U) Dark yellow Yellow [facility] Creatinine [Mass/volume] in Serum or PlasmaOrdered By: Antolin Abarca on 05-10-2022 Creatinine [Mass/Vol] 0.81 mg/dL 0.60-1.20 [facility] Eosinophils Auto (Bld) [#/Vo l]Ordered By: Antolin Abarca on 05-10-2022 Eosinophils (Bld) [#/Vol] 0.2 10*3/uL 0.0-0.45 [facility] Eosinophils/100 WBC Auto (Bl d)Ordered By: Antolin Abarca on 05-10-2022 Eosinophils/100 WBC (Bld) 1.9 % . [facility] Erythrocyte distribution wid th Auto (RBC) [Ratio]Ordered By: Antolin Abarca on 05-10-2022 Erythrocyte distribution width (RBC) [Ratio] 15.1 % 11.9-15.3 [facility] Ethanol [Mass/volume] in Ser um or PlasmaOrdered By: Antolin Abarca on 05-10-2022 Ethanol [Mass/Vol] mg/dL [facility] Ethanol [Mass/Vol] TNP [facility] Comment on above: Test not performed Globulin Calc (S) [Mass/Vol] Ordered By: Antolin Abarca on 05-10-2022 Globulin (S) [Mass/Vol] 2.9 g/dL [facility] Glucose [Mass/volume] in Ser um or PlasmaOrdered By: Antolin Abarca on 05-10-2022 Glucose [Mass/Vol] 87 mg/dL 74-109 [facility] Comment on above: ADA recommended refe rence rangeRandom Glucose Reference Range is dependent on time and content of last meal. Glucose of more than 200 mg/dL in a nonstressed, ambulatory subject supports the diagnosis of Diabetes Mellitus. HCG ( test) IA.rapi d Ql (U)Ordered By: Antolin bAarca on 05-10-2022 HCG ( test) Ql (U) Negative [facility] Hematocrit Auto (Bld) [Volum e fraction]Ordered By: Antolin Abarca on 05-10-2022 Hematocrit (Bld) [Volume fraction] 42.9 % 34.0-46.4 [facility] Hemoglobin [Mass/volume] in BloodOrdered By: Antolin Abarca on 05-10-2022 Hemoglobin (Bld) [Mass/Vol] 14.1 g/dL 11.8-15.4 [facility] Ketones Auto test strip (U) [Mass/Vol]Ordered By: Antolin Abarca on 05-10-2022 Ketones (U) [Mass/Vol] Trace Negative [facility] Laboratory - Chemistry and C hemistry - challengeOrdered By: Antolin Abarca on 05-10-2022 GFR/1.73 sq M.predicted MDRD (S/P/Bld) [Vol rate/Area] mL/min/{1.73_m2} [facility] Leukocytes [#/volume] correc hemalatha for nucleated erythrocytes in Blood by Automated counOrdered By: Antolin Abarca on 05-10-2022 WBC corrected for nucl RBC Auto (Bld) [#/Vol] 10.7 10*3/uL 3.8-11.6 [facility] Lymphocytes Auto (Bld) [#/Vo l]Ordered By: Antolin Abarca on 05-10-2022 Lymphocytes (Bld) [#/Vol] 2.3 10*3/uL 1.00-4.8 [facility] Lymphocytes/100 WBC Auto (Bl d)Ordered By: Antolin Abarca on 05-10-2022 Lymphocytes/100 WBC (Bld) 21.1 % . [facility] MCH Auto (RBC) [Entitic mass ]Ordered By: Antolin Abarca on 05-10-2022 MCH (RBC) [Entitic mass] 29.1 pg 24.7-34.3 [facility] MCHC Auto (RBC) [Mass/Vol]Or dered By: Antolin Abarca on 05-10-2022 MCHC (RBC) [Mass/Vol] 32.9 g/dL 32.0-35.0 [facility] MCV Auto (RBC) [Entitic vol] Ordered By: Antolin Abarca on 05-10-2022 MCV (RBC) [Entitic vol] 88.3 fL 80-100 [facility] Monocyte distribution width [Entitic volume] in Blood by AutomatedOrdered By: Antolin Abarca on 05-10-2022 Monocyte distribution width Auto (Bld) [Entitic vol] 18.66 % 0.00-20.00 [facility] Monocytes Auto (Bld) [#/Vol] Ordered By: Antolin Abarca on 05-10-2022 Monocytes (Bld) [#/Vol] 0.9 10*3/uL 0.0-0.8 [facility] Monocytes/100 WBC Auto (Bld) Ordered By: Antolin Abarca on 05-10-2022 Monocytes/100 WBC (Bld) 8.7 % . [facility] Neutrophils Auto (Bld) [#/Vo l]Ordered By: Antolin Abarca on 05-10-2022 Neutrophils (Bld) [#/Vol] 7.2 10*3/uL 1.8-7.7 [facility] Neutrophils/100 WBC Auto (Bl d)Ordered By: Antolin Abarca on 05-10-2022 Neutrophils/100 WBC (Bld) 67.5 % . [facility] Nitrite Test strip Ql (U)Ord ered By: Antolin Abarca on 05-10-2022 Nitrite Ql (U) Negative Negative [facility] No Panel InformationOrdered By: Antolin Abarca on 05-10-2022 Pharmacy Creatinine Clearance (Chem 102.62 [facility] Nucleated erythrocytes [Pres ence] in Blood by Automated countOrdered By: Antolin Abarca on 05-10-2022 Nucleated RBC Auto Ql (Bld) 0.0 /100{WBC} 0-0.5 [facility] Opiates [Presence] in Urine by Screen methodOrdered By: Antolin Abarca on 05-10-2022 Opiates Screen Ql (U) Negative Negative [facility] Phencyclidine Screen Ql (U)O rdered By: Antolin Abarca on 05-10-2022 Phencyclidine Ql (U) Negative Negative [facility] Platelet mean volume Auto (B ld) [Entitic vol]Ordered By: Antolin Abarca on 05-10-2022 Platelet mean volume (Bld) [Entitic vol] 6.8 fL 6.3-10.7 [facility] Platelets Auto (Bld) [#/Vol] Ordered By: Antolin Abarca on 05-10-2022 Platelets (Bld) [#/Vol] 267 10*3/uL 150-450 [facility] Potassium [Moles/volume] in Serum or PlasmaOrdered By: Antolin Abarca on 05-10-2022 Potassium [Moles/Vol] 4.7 mmol/L 3.5-5.1 [facility] Protein Auto test strip (U) [Mass/Vol]Ordered By: Antolin Abarca on 05-10-2022 Protein (U) [Mass/Vol] 30 mg/dL Negative [facility] Protein [Mass/volume] in Ser um or PlasmaOrdered By: Antolin Abarca on 05-10-2022 Protein [Mass/Vol] 6.9 g/dL 6.4-8.9 [facility] RBC Auto (Bld) [#/Vol]Ordere d By: Antolin Abarca on 05-10-2022 RBC (Bld) [#/Vol] 4.86 10*6/uL 3.60-5.00 [facility] Serum or plasma albumin/glob ulin mass ratioOrdered By: Antolin Abarca on 05-10-2022 Albumin/Globulin [Mass ratio] 1.4 {ratio} [facility] Serum or plasma anion gap de terminationOrdered By: Antolin Abarca on 05-10-2022 Anion gap [Moles/Vol] 9.6 mmol/L 6.0-15.0 [facility] Sodium [Moles/volume] in Ser um or PlasmaOrdered By: Antolin Abarca on 05-10-2022 Sodium [Moles/Vol] 136 mmol/L 136-145 [facility] Specific gravity Auto test s trip (U) [Rel density]Ordered By: Antolin Abarca on 05-10-2022 Specific gravity (U) [Rel density] 1.028 1.001-1.030 [facility] Squamous epithelial cells de tection in urine sediment by light microscopyOrdered By: Antolin Abarca on 05-10-2022 Epithelial cells.squamous LM Ql (Urine sed) 3-4 [HPF] 0-2 [facility] Urea nitrogen [Mass/volume] in Serum or PlasmaOrdered By: Antolin Abarca on 05-10-2022 Urea nitrogen [Mass/Vol] 11 mg/dL 7-25 [facility] Urine bacteria detection by automated methodOrdered By: Antolin Abarca on 05-10-2022 Bacteria Auto Ql (U) 1+ None Seen [facility] Urine clarity by refractomet ry automatedOrdered By: Antolin Abarca on 05-10-2022 Clarity Refractometry automated (U) Cloudy Clear [facility] Urine culture routineOrdered By: Antolin Abarca on 05-10-2022 Bacteria identified Cx Nom (U) 2 Days [facility] Urine glucose measurement by automated test strip (mass/volume)Ordered By: Antolin Abarca on 05-10-2022 Glucose Auto test strip (U) [Mass/Vol] Normal mg/dL Normal [facility] Urine hemoglobin detection b y automated test stripOrdered By: Antolin Abarca on 05-10-2022 Hemoglobin Auto test strip Ql (U) 2+ Negative [facility] Urine leukocyte esterase det ection by automated test stripOrdered By: Antolin Abarca on 05-10-2022 Leukocyte esterase Auto test strip Ql (U) 3+ Negative [facility] Urobilinogen Auto test strip (U) [Mass/Vol]Ordered By: Antolin Abarca on 05-10-2022 Urobilinogen (U) [Mass/Vol] Normal mg/dL Normal [facility] WBC Auto (Bld) [#/Vol]Ordere d By: Antolin Abarca on 05-10-2022 WBC (Bld) [#/Vol] 10.7 10*3/uL 3.8-11.6 [facility] pH Auto test strip (U)Ordere d By: Antolin Abarca on 05-10-2022 pH (U) 6.0 [pH] 5.0-9.0 [facility] Covid-19 PCR (CVDTBH)on SARS-CoV-2 (COVID-19) RNA PITO+probe Ql (Unsp spec) Detected Abnormal NOT DETECTED [facility] Comment on above: Result Comment: This test is not yet approved or cleared by the [place] FDA. When there are no FDA-approved or cleared tests available, and other criteria are met, FDA can make tests available under an emergency access mechanism called an Emergency Use Authorization (EUA). The EUA for this test is supported by the [place] of Health and Human Service's (HHS's) declaration [...] Performed By: #### L IPA, CMP #### [facility] [address] [place] [address] Dr. Toy Macario INFLUENZA A AND B AGon 03-13 INFLUANEGH SEE BELOW Normal [facility] Comment on above: Result Comment: Nega tive for Flu A protein angiten. Infection due to Flu A cannot be ruled out. Flu A angiten in the sample may be below the detection limit of the test. Performed By: #### C MP, LIPA #### [facility] [address] [place] [address] Dr. Toy Macario INFLUBNEGH SEE BELOW Normal [facility] Comment on above: Result Comment: Nega tive for Flu B protein antigen. Infection due to Flu B cannot be ruled out. Flu B antigen in the sample may be below the detection limit of the test. Performed By: #### C MP, LIPA #### [facility] [address] [place] [address] Dr. Toy Macario INFLUENZA A AG Negative Normal NEGATIVE SEE COMMENT [facility] Comment on above: Performed By: #### C MP, LIPA #### [facility] [address] [place] [address] Dr. Toy Macario INFLUENZA B AG Negative Normal NEGATIVE SEE COMMENT [facility] Comment on above: Performed By: #### C MP, LIPA #### [facility] [address] [place] [address] Dr. Toy Macario XR CHEST 1 Von [...] URIEL SPIVEY Date: 2022-03-13 15:46 Normal [facility] Progress Noteson 02-14-2022 Automatic Buffer Authentication Interface Message Text This encounter was opened in error. Patient was a No-Show. Please disregard. Called, directly to busy signal. Dennis Sarmiento MD Normal [facility] Progress Noteson 09-02-2021 Automatic Buffer Authentication Interface Message Text TUMOR BOARD NOTE [...] and Staging Information: SPECIMEN FOR SURGICAL PATH: [id number] Order: [id number] Collected 07/30/2021 15:54 ??? Status: Final result ??? Visible to patient: Yes (not seen) ??? Dx: Liver cyst; Cyst of gallbladder ??? 0 Result Notes ??? Component ??? Case Report Surgical Pathology Report ? Case: [id number] ? Authorizing Provider: ???Dennis Sarmiento MD ? Collected: ? 07/30/2021 1554 ? Ordering Location: ? [facility] Main OR ?Received: ? 08/03/2021 1030 ? [...] lymph nodes or masses grossly. ??? Sections: ???[facility] ??? A1. ???Fibrotic tissue (X) ? B. [...] tumor, it is inked green. ??? Sections: ???[facility] ??? B1. ???Cystic lesion, fibrotic area (X) [...] M.D ? Clinical Information ??? [place] [facility] [place] Specimen Collected: 07/30/21 15:54 Last Resulted: 08/05/21 08:46 ??? Order Details ??? View Encounter ??? Lab and Collection Details ??? Routing ??? Result History ? Scans on Order [id number] ??? Document on 08/05/2021 ???8:46 AM by Marc Ricketts, Treatment Recommendations and NCCN: Plan no surgical in (more content not included)... Normal [facility] Progress Noteson 08-24-2021 Automatic Buffer Authentication Interface Message Text Patient was identified by name and date of . Narda Mercedes Patient at risk for falls:No Falls Risk protocol implemented: No Normal [facility] Progress Noteson 08-16-2021 Automatic Buffer Authentication Interface Message Text Phone numbers Preferred Documentation: Mode: Telephone Patient Patient Work Phone: Patient Cell Preferred phone: [phone] Consent: I confirmed patient understanding of the risks and benefits of telehealth visits and obtained consent to proceed with the telehealth visit. Location of Patient: Home of patient Surgery Follow Up Feeling well since surgery. Still hurting but she is starting to feel better. [facility] week for staple removal. SPECIMEN FOR SURGICAL PATH: [id number] Order: [id number] Collected 07/30/2021 15:54 ??? Status: Final result ??? Visible to patient: Yes (not seen) ??? Dx: Liver cyst; Cyst of gallbladder ??? 0 Result Notes Component Case Report Surgical Pathology Report ? Case: [id number] ? Authorizing Provider: ???Dennis Sarmiento MD ? [...] lymph nodes or masses grossly. ??? Sections: Community Ambassador ??? A1. Fibrotic tissue (X) ? B. [...] tumor, it is inked green. ??? Sections: Community Ambassador ??? B1. Cystic lesion, fibrotic area (X) [...] Ivey M.D ? Clinical Information [place]ing [place] [facility] [place]imen Collected: 07/30/21 15:54 Last Resulted: 08/05/21 08:46 Order Details ??? View Encounter ??? Lab and Collection Details ??? Routing ??? Result History ??? Scans on Order [id number] Document on 08/05/2021 ???8:46 AM by Marc Ricketts MD ??? 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 Follow up in 6 months with a televisit in person if needed. Dennis Sarmiento MD, FA (more content not included)... Normal [facility] CYTOLOGY FLUIDOrdered By: Krewin Ram on 08-04-2021 Appearance (U) Mucoid [facility] Work Phone: Case Report Medical Cytology Report Case: [id number] Authorizing Provider: Dennis aSrmiento MD Collected: 07/30/2021 1619 Ordering Location: [facility] Main OR Received: 08/03/2021 0855 Pathologist: Ting Ram MD Specimen: Fluid, Cyst (Cytology), liver cyst fluid [facility] Work Phone: Cell Block w2rmcWAkQJDyaAM3ABTb XG Hye4vlk7EuhEUikWWkRPmr dVIzkuOpvx41kGZ4nG28IA 2jSMUbJoU3EQQskgO0Aba2 BFOxVEUmkPFmU062z2cjb0 jydfGupXG7iVbsRCRjiiro HjD0RXehIXWbgusxCAb9GM pwQBFkwLK9CXUnpXXkO5Ft EXNtTS4toiu0GPW9QBnbNP FoHkF2MCTrnOHvSQSfvWha LEmtd855FCF3FbTcMEJxkl AhoSofcA8hZfUzHUMRvM9p ZCwgZmlicmluLCBncmFudW xhciBkZWJyaXMsIHJhcmUg uEEbjn9uuQNjAYBlIZTvKG BkZWdlbmVyYXRlZCBpbmZs DB8qCFLmngujQ0YudJJqAA Bhcn0= [facility] Work Phone: Clinical Information [facility] Work Phone: Color (U) Red [facility] Work Phone: Final Diagnosis w6pmrBKqOMXjb6jwQBOb bG FuZzEwMzNcZnRuYmpcdWMx IHtccnRmMVxlcGljOTkwMV usjfErQEZtaPHmY0Ussdkj XUxrZU2eNQ4brJbsiCSsvI NrXAWfTtNvy1vpo063wFJd e9gnZHTZrxfiwGo9sUumG1 6yn7M5YhhaI64vbHSxYUC6 BJIxGKCuiQFrQKDqMAD1ES WgkVRvE5plKSKjPS1ausuk BIowLWqqYEPfyXT9VFWamW DiF1WgPZHlAMwrDSReofi5 KgQtFu1avQJgsUmtNVjkFU JkXHBsYWluXGJcZnMyMCAi Vym7sJAoQPJ2l5EyMBX5kX 0mm9b6DPwtcGw0SEWoJ1vs dCBmbHVpZCJccGFyXGIwXH MlpwKOXDmvyVx1QWCaw2Fq mYJieUdcCP7fdF2yuAPjFP Zps6MklG79gxCqDZEkzSHa IGZldyBkZWdlbmVyYXRlZC RmNPssojwnEE1rENJvgzRe lICajv7ohXWxOEUdUUYiPL OnYMLwrwPwWOJgMKOygT0y AMUtmDxbcW3kPKMqa0lkU5 aabfAot8I6NU5jxABrUJVx dxSeA1DeBBNwgJlgOktnK5 nvpO40VYDkyrT7VFNly71s FvQnRFZ5aOAjLRBmpS05UW xwYXJccGFyXHBhciBQcmlt EXG1MCQnfhMidpJmBfNKZP F7q5AwUwGdlrIdLEHXAPqK U2SEPPwiNQB9g1muqAWjBE OjoTPqNyQzFAKyKQUqh4zx ZGVmbGFuZzEwMzNcZnRuYm xapJWlBBQtBpVip2fuj305 aHTsv6jnAIRtFuU5oOVtYK VarPKqY987JSBwDGlta6rm a0KqMSRckXJfo3O0GIBIbg rdqQp2hBinN51yk5X2Bvpc D6wfGPVaENDqT8GmIH4qRW FcJni3TEJ3YCQ0QTDiPZk2 UNilRLAnLFJiAhj3EGa9LL tccmVkMFxncmVlbjBcYmx1 LANlY452MJG7aRxkm0rwLC O0VQYsFBVdKnCiZo9irWKu E509POYkKVGCLZIlwQu7MV EkvmWizcDnhILPr590B450 n2bzWOPpyoLrnIrAporoj5 bsE946ZYBwqQPvsoHeYvIp LHThpFEdvVF9XPCfFN4fqw pzAWyoSZsuZPAfgdN9VQMj wFEnX6DwFSNdSJ5btspxYM U6HPaeHFGwPQD5XoPwWNKy m4Bytko8YgUpgu1xwe39KJ P1q3StwXhlTSW5ZDL4CeSk Nu2csNKuPKGkKZ9qWpSreO ZeGKMhet26zVfiMUecsaEr bS9wZlXkWVTjyTObXZSaZV 1ftCIwUPSptB0erttrLIUx YnJkcmhlYWRccGdicmRyZm 6ngEutJNN3IIjkN8lspU6g BwE2OEmdA0kunF1jWNm8LL niuTG5RNHynV8qZX8nveky l6gjNNpgVYylNVXoskQ7og E2KJMxgDWwA9HzjV0gWRJs BC5pukatv9nbWRA1CGckVK LzMLU5WxTzBZUse6Jwdxe3 FsHcx5RjjPOeLIiaA91fi3 79KGZbffAfT0zphFSmctih aIMrgsytQDthjgC7KQRoQO BsYWluXGYxXGZzMjJcbGFu ZzEwMzNcaGljaFxmMVxkYm WmQFJrWOocM3aqNuBtKnEc FuaaLHEjcDykfG4rKlMdBp BbXJiwTQ3jNLZmR4renEFv LSKtGFGpP8ouKyRsiA3zpG prGOqlhaYqRBElZIB6tg6m jKVyrCl6KJViB56yCEMCmZ VfHuhzPSh2VN4mBEYvdBGk WIKTHXXlkyRmJe1dAV6wZV IyLlxwYXJccGFyXHBsYWlu XGYxXGZzMThcbGFuZzEwMz NcaGljaFxmMVxkYmNoXGYx RNidP1tcCpGfN9NdSUJqYM hcaSBJIGNlcnRpZnkgdGhh dCBJIHBlcnNvbmFsbHkgY2 9uZHVjdGVkIHRoZSBkaWFn mo8ccWrgUKN5MTf8JQShw4 0yl7NprKhdYSSyv1TkQZXd ZWNpbWVuKHMpIGFuZCBoYX ZlIHJlbmRlcmVkIHRoZSBm nH9bwRRfpPJofo6dcFPdJZ NuZiWgzFofjF0dJuGvBdFp OlztFW1yNYNeR5sxlLQmBM CdBAFnP0lxTmXfwK9lvHtx FQomgnOmEFHuntqmQYX8vW == [facility] Work Phone: Gross Description j8jcwGBmLZByqSH5HUYg XG Riz6dsl1GakKLweGDeUBct bWTjqqMlbm62iHM1wS81YJ 8cLRCkRaX5NXOnxoV0Cbz0 TMPpSOLbxIKpP853c2zwj2 ujkqGpzUC4iXbxMXPapyqx RlJ7KVshHBWzclsxTVm0YD mgLOMfpDL7KGUgoAHvN6Xn YTZzUX8wics4NNP0VPocTC WsGsY3JBWqxQUqHOPlmVyq YWltz432VZT0KcQnUBKiwo BbxMywgL5kXxOmUQMhBMXn vJ7FxeIfZWUduVYqFWDiJS YhgzKfWkPPwZKqmE5jMIVi eGVkIGFuZCBzdGFpbmVkIH grfYwhNAKuBE8hI40dHT00 RHM6WZhpPdlkLYGfI4KhsY SLvD9oldBfvlOvJUXrYNAq f4ToICjzfEqrJABxb59rSE FWBUhfGHTtl3ShAZ9nqCHy aWFsIGZpeGVkIGluIDEwJS YvCJZ0gcGeRMM1GeFyqaZk QJZrfa5jfXqvWHXjpuYiSS DapE72bkHqRDGiom8= [facility] Work Phone: Volume 1 mL [facility] [...] the patient's full clinical presentation. Reference: 1. oJrdan C, Conner M, Gina DC, et al.. A Unifying Approach for GFR Estimation: Recommendations of the NKF-ASN Task Force on Reassessing the Inclusion of Race in Diagnosing Kidney Disease. [place] Journal of Kidney Diseases 202;79(2):268-88.e1. 2. N Engl J Med 2020 Vol. 385 Issue 19 Pages 8407-8386 Glucose [Mass/Vol] 88 mg/dL 68 - 110 [...] 8.6 g/dL Low 12.0 - 15.0 g/dL [facility] Interpretation and review of laboratory results [...] [Mass/Vol] 0.20 mg/dL 0.10 - 0.30 mg/dL [facility] Interpretation and review of laboratory results Abnormal [facility] Protein [Mass/Vol] 4.5 g/dL Low 6.2 - 8.3 g/dL [facility] bankon Major crossmatch [Interp] Compatible (E) [facility] Major crossmatch [Interp] Compatible (E) [facility] MAGNESIUMon 08-03-2021 Interpretation and review of laboratory results Normal [facility] Magnesium [Mass/Vol] 1.9 mg/dL 1.6 - 2 .8 mg/dL [facility] No Panel Informationon 08-03 [facility] Blood Product Code [id number] [facility] ealt Blood Product Description FFP [facility] Blood Product Unit [facility]300 [facility] Comment on above: B Pos Status Released to avail [facility] alth [facility] Blood Product Code [id number] [facility] Product Description Red Blood Cells [facility] Blood Product [facility]300 [facility] Comment on above: B Pos Status Released to avail [facility] alth [facility] Blood Product Code [id number] [facility] ealt Blood Product Description Red Blood Cells [facility] Blood Product [facility]300 [facility] Comment on above: B Pos Status Transfused [facility] PLASMA STATUSon 08-03-2021 Blood product unit Nom (BPU) [ID] [id number] [facility] Blood product unit Nom (BPU) [ID] [id number] [facility] RED BLOOD CELL UNIT STATUSon 08-03-2021 Blood product unit Nom (BPU) [ID] [id number] [facility] Blood product unit Nom (BPU) [ID] [id number] [facility] Blood product unit Nom (BPU) [ID] [id number] [facility] Blood product unit Nom (BPU) [ID] [id number] [facility] Basic metabolic 2000 panelon 08-02-2021 Anion gap [Moles/Vol] 11 mmol/L [facility] Calcium [Mass/Vol] 8.4 mg/dL 8.4 - 10. 4 mg/dL [facility] Chloride [Moles/Vol] 106 mmol/L 97 - 11 1 mmol/L [facility] CO2 [Moles/Vol] 25 mmol/L 21 - 30 mmol/L [facility] Creatinine [Mass/Vol] 0.66 mg/dL 0.50 - 1.10 mg/dL [facility] GFR/1.73 sq M.predicted MDRD (S/P/Bld) [Vol rate/Area] [...] Inclusion of Race in Diagnosing Kidney Disease. [place] Journal of Kidney Diseases 2021;79(2):268-88.e1. 2. N Engl J Med 2020 Vol. 385 Issue 19 Pages 8226-5850 Glucose [Mass/Vol] 85 mg/dL 68 - 110 [...] [#/Vol] 7.8 10*3/uL 4.5 - 11.5 K/uL [facility] CT ABDOMEN/PELVIS W/ CONTRAS TOrdered By: Mag Ordoñez on 08-02-2021 CT DLP 902.8 (mGy.cm) [facility] Work Phone: CT Series Abdomen [facility] Work Phone: CTDI VOL 16.5 (mGy) [facility] [place] Work Phone: PHANTOM TYPE IEC Body Dosimetry Phantom [facility] [place] Work Phone: [facility] [place] Work Phone: CT ABDOMEN/PELVIS W/ CONTRAS Ton [...] contrast to assess anatomy Additional history per [facility] surgery note 07/30/2021: Status post laparoscopy with [...] contrast to assess anatomy Additional history per [facility] surgery note 07/30/2021: Status post laparoscopy with [...] Inclusion of Race in Diagnosing Kidney Disease. [place] Journal of Kidney Diseases 202;79(2):268-88.e1. 2. N Engl J Med 1 Vol. 385 Issue 19 Pages 6920-3088 Glucose [Mass/Vol] 101 mg/dL 68 - 110 [...] [#/Vol] 163 10*3/uL 150 - 400 K/uL [facility] RBC (Bld) [#/Vol] 2.66 10*6/uL Low [facility] WBC (Bld) [#/Vol] 7.6 10*3/uL 4.5 - 11.5 K/uL [facility] [place] [facility] CT ABDOMEN/PELVIS W/ CONTRAS Ton 08-01-2021 Radiology Study observation (narrative) [facility] HEPATIC FUNCTION PANELon Albumin [Mass/Vol] 2.7 g/dL Low 3.4 - 5.1 g/dL [facility] [place] ALP [Catalytic activity/Vol] 32 U/L Low [facility] ALT [Catalytic activity/Vol] 40 U/L [facility] AST [Catalytic activity/Vol] 53 U/L High [facility] Bilirubin [Mass/Vol] 1.0 mg/dL 0.1 - 1 .5 mg/dL [facility] [place] Bilirubin.direct [Mass/Vol] 0.20 mg/dL 0.10 - 0.30 mg/dL [facility] [place] Interpretation and review of laboratory results Abnormal [facility] [place] Protein [Mass/Vol] 3.7 g/dL Low 6.2 - 8.3 g/dL [facility] [place] MAGNESIUMon 08-01-2021 Interpretation and review of laboratory results Normal [facility] [place] Magnesium [Mass/Vol] 1.9 mg/dL 1.6 - 2 .8 mg/dL [facility] [place] No Panel Informationon 08-01 [facility] PARTIAL THROMBOPLASTIN TIMEo n 08-01-2021 aPTT Coag (Bld) [Time] 29 s [facility] Interpretation and review of laboratory results Normal [facility] PROTHROMBIN TIME AND INRon 0 08-01-2021 INR [...] Inclusion of Race in Diagnosing Kidney Disease. [place] Journal of Kidney Diseases 202;79(2):268-88.e1. 2. N Engl J Med 2020 Vol. 385 Issue 19 Pages 3210-0816 Glucose [Mass/Vol] 129 mg/dL High 68 - 110 mg/dL [facility] Interpretation and review of laboratory results Abnormal [facility] Potassium [Moles/Vol] 4.6 mmol/L 3.3 - 5.3 mmol/L [facility] Sodium [Moles/Vol] 135 mmol/L 135 - 148 mmol/L [facility] Urea nitrogen [Mass/Vol] 10 mg/dL 8 - 22 mg/dL [facility] CALCIUM, IONIZEDon Calcium.ionized (Bld) [Moles/Vol] 1.21 mmol/L 1.10 - 1.40 mmol/L [facility] CBC panel Auto (Bld)on 07-31 Erythrocyte distribution width (RBC) [Ratio] 15.1 % High 11.5 - 14.5 % [facility] Hematocrit (Bld) [Volume fraction] 28.7 % Low 36.0 - 46.0 % [facility] Hemoglobin (Bld) [Mass/Vol] 9.9 g/dL Low 12.0 - 15.0 g/dL [facility] Interpretation and review of laboratory results Abnormal [facility] MCH (RBC) [Entitic mass] 28.8 pg 26.0 - 34.0 pg [facility] MCHC (RBC) [Mass/Vol] 34.6 g/dL 32.0 - 35.9 g/dL [facility] MCV (RBC) [Entitic vol] 83 fL 80 - 100 fL [facility] Platelet mean volume (Bld) [Entitic vol] 7.3 fL Low 7.5 - 11.2 fL [facility] Platelets (Bld) [#/Vol] 207 10*3/uL 150 - 400 K/uL [facility] RBC (Bld) [#/Vol] 3.45 10*6/uL Low [facility] WBC (Bld) [#/Vol] 9.5 10*3/uL 4.5 - 11.5 K/uL [facility] CO-OXIMETERon 07-31-2021 Carboxyhemoglobin (BldA) [Mass fraction] <0.7 <3.0 % [facility] Hematocrit (BldA) [Volume fraction] 30.6 % Low 36.0 - 46.0 % [facility] Hemoglobin (Bld) [Mass/Vol] 9.9 g/dL Low 12.0 - 16.0 g/dL [facility] Interpretation and review of laboratory results [...] 147 mg/dL High 68 - 98 mg/dL [facility] HEPATIC FUNCTION PANELon Albumin [Mass/Vol] 3.7 g/dL [...] 1.9 mmol/L 0.5 - 2. 0 mmol/L [facility] Laboratory - Chemistry and C hemistry - challengeOrdered By: Feliciano Cutler on 07-31-2021 HCO3 (Bld) [Moles/Vol] 21 mmol/L Low 22 - 28 mmol/L [facility] MAGNESIUMon 07-31-2021 Magnesium [Mass/Vol] 1.5 mg/dL Low 1.6 - 2 .8 mg/dL [facility] No Panel Informationon 07-31 Interpretation and review of laboratory results Abnormal [facility] Interpretation and review of laboratory results Normal [facility] [place] Interpretation and review of laboratory results Abnormal [facility] [place] [facility] BLOOD GAS, ARTERIALon 2021 Base excess Calc [...] 170 mg/dL High 68 - 98 mg/dL [facility] [place] Glucose [Mass/Vol] 187 mg/dL High 68 - 98 mg/dL [facility] Glucose [Mass/Vol] 192 mg/dL High 68 - 98 mg/dL [facility] [place] LACTIC ACIDon 07-30-2021 Lactate [Moles/Vol] 1.9 mmol/L 0.5 - 2. 0 mmol/L [facility] Lactate [Moles/Vol] 1.3 mmol/L 0.5 - 2. 0 mmol/L [facility] Lactate [Moles/Vol] 1.5 mmol/L 0.5 - 2. 0 mmol/L [facility] [place] Laboratory - Blood bankon ABO and Rh group Nom (Bld) Blood group B Rh(D) positive [facility] [place] Laboratory - Chemistry and C hemistry - challengeon 07-30-2021 HCO3 (Bld) [Moles/Vol] 19 mmol/L Low 22 - 28 mmol/L [facility] HCO3 (Bld) [Moles/Vol] 21 mmol/L Low 22 - 28 mmol/L [facility] [place] Laboratory - Chemistry and C hemistry - challengeOrdered By: Melissa Moon on 07-30-2021 HCO3 (Bld) [Moles/Vol] 22 mmol/L 22 - 28 mmol/L [facility] [place] No Panel Informationon 07-30 Interpretation and review of laboratory results Abnormal [facility] [place] Interpretation and review of laboratory results Normal [facility] Interpretation and review of laboratory results Abnormal [facility] [place] Interpretation and review of laboratory results Normal [facility] Interpretation and review of laboratory results Normal [facility] [place] No Panel InformationOrdered By: Melissa Moon on 07-30-2021 Interpretation and review of laboratory results Abnormal [facility] RED BLOOD CELL COMPONENTon 0 07-30-2021 BB Order Item Product status info to follow [facility] BB Order Item Product status info to follow [facility] TRANSFUSE RED CELLSon 2021 [facility] [place] TRANSFUSE RED CELLSOrdered B y: Adrian Bermudez on 07-30-2021 [facility] [place] Work Phone: TYPE AND SCREENon 07-30-2021 Blood group antibody screen Ql Negative [facility] URINE HCG-IN OFFICEOrdered B y: Rachel [...] Control Positive Positive [facility])on 06-04 SARS-CoV-2 (COVID-19) RNA PITO+probe Ql (Unsp spec) Not detected Normal NOT DETECTED [facility] Comment on above: Result Comment: This test is not yet approved or cleared by the [place] FDA. When there are no FDA-approved or cleared tests available, and other criteria are met, FDA can make tests available under an emergency access mechanism called an Emergency Use Authorization (EUA). The EUA for this test is supported by the [place] of Health and Human Service's (HHS's) declaration [...] SARS-CoV-2. Performed By: #### C VDTBH #### [facility] [address] [address] [address] Toy Macario CBC AUTO DIFFon 04-22-2021 BASO # 0.1 103/ul Normal 0.0-0.1 [facility] Comment on above: Performed By: #### C BC #### [facility] [address] [address] [address] Toy Macario Basophils/100 WBC (Bld) 0.8 % Normal 0.2-2.0 [facility] Comment on above: Performed By: #### C BC #### [facility] [address] [place] [address] Dr. Toy Macario EO # 0.2 103/ul Normal 0.0-0.7 [facility] Comment on above: Performed By: #### C BC #### [facility] [address] [place] [address] Dr. Toy Macario Eosinophils/100 WBC (Bld) 2.5 % Normal 0.9-7.0 [facility] Comment on above: Performed By: #### C BC #### [facility] [address] [place] [address] Dr. Toy Macario Erythrocyte distribution width (RBC) [Ratio] 14.3 % Normal 11.0-15.0 [facility] Comment on above: Performed By: #### C BC #### [facility] [address] [place] [address] Dr. Toy Macario Hematocrit (Bld) [Volume fraction] 26.9 % Critically low 36.0-48.0 [facility] Comment on above: Performed By: #### C BC #### [facility] [address] [place] [address] Dr. Toy Macario Hemoglobin (Bld) [Mass/Vol] 7.7 g/dL Critically low 12.0-16.0 [facility] Comment on above: Performed By: #### C BC #### [facility] [address] [place] [address] Dr. Toy Macario IG # 0.04 10e3/ul Critically high 0.00-0.03 [facility] Comment on above: Performed By: #### C BC #### [facility] [address] [place] [address] Dr. Toy Macario IG % 0.7 % Critically high 0.0-0.5 [facility] Comment on above: Performed By: #### C BC #### [facility] [address] [place] [address] Dr. Toy Macario LYMPH # 1.2 103/ul Normal 1.2-3.8 [facility] Comment on above: Performed By: #### C BC #### [facility] [address] [place] [address] Dr. Toy Macario Lymphocytes/100 WBC (Bld) 19.2 % Critically low 20.5-60.0 [facility] Comment on above: Performed By: #### C BC #### [facility] [address] [place] [address] Dr. Toy Macario MANUAL DIFF REQ NO Normal [facility] Comment on above: Performed By: #### C BC #### [facility] [address] [place] [address] Dr. Toy Macario MCH (RBC) [Entitic mass] 27.6 pg Normal 26.7-34.0 [facility] Comment on above: Performed By: #### C BC #### [facility] [address] [place] [address] Dr. Toy Macario MCHC (RBC) [Mass/Vol] 28.6 g/dL Critically low 29.9-35.2 [facility] Comment on above: Performed By: #### C BC #### [facility] [address] [place] [address] Dr. Toy Macario MCV (RBC) [Entitic vol] 96.4 fL Normal 81.0-99.0 [facility] Comment on above: Performed By: #### C BC #### [facility] [address] [place] [address] Dr. Toy Macario MONO # 0.4 103/ul Normal 0.3-0.8 [facility] Comment on above: Performed By: #### C BC #### [facility] [address] [place] [address] Dr. Toy Macario Monocytes/100 WBC (Bld) 7.2 % Normal 1.7-12.0 [facility] Comment on above: Performed By: #### C BC #### [facility] [address] [place] [address] Dr. Toy Macario NEUT # 4.3 103/ul Normal 1.4-6.5 [facility] Comment on above: Performed By: #### C BC #### [facility] [address] [address] [address] Toy Macario Neutrophils/100 WBC (Bld) 69.6 % Normal 43.0-75.0 [facility] Comment on above: Performed By: #### C BC #### [facility] [address] [address] [address] Toy Macario Platelet mean volume (Bld) [Entitic vol] 10.0 fL Normal 9.5-13.5 [facility] Comment on above: Performed By: #### C BC #### [facility] [address] [address] [address] Toy Macario PLT 238 103/ul Normal 150-450 [facility] Comment on above: Performed By: #### C BC #### [facility] [address] [address] [address] Toy Macario RBC 2.79 106/ul Critically low 4.20-5.40 [facility] Comment on above: Performed By: #### C BC #### [facility] [address] [address] [address] Toy Macario WBC 6.1 103/ul Normal 4.0-11.0 [facility] Comment on above: Performed By: #### C BC #### [facility] [address] [address] [address] Toy Macario LIPASEon 04-22-2021 Lipase [Catalytic activity/Vol] 712.0 U/L Critically high 23.0-300.0 [facility] Comment on above: Performed By: #### L IPA, CMP #### [facility] [address] [address] [address] Toy Macario MAGNESIUMon 04-22-2021 Magnesium [Mass/Vol] 2.6 mg/dL Critically high 1.6-2.3 [facility] Comment on above: Performed By: #### L IPA, CMP #### [facility] [address] [address] [address] Toy Macario PHOSPHORUSon 04-22-2021 Phosphate [Mass/Vol] 3.8 mg/dL Normal 2.5-4.5 [facility] Comment on above: Performed By: #### L IPA, CMP #### [facility] [address] [place] [address] Dr. Toy Macario POINT OF CARE GLUCOSEon 04-06 Glucose [Mass/Vol] 114 mg/dL Critically high 74-106 [facility] Comment on above: Performed By: #### L IPA, CMP #### [facility] [address] [place] [address] Dr. Toy Macario Glucose [Mass/Vol] 123 mg/dL Critically high 74-106 [facility] Comment on above: Performed By: #### L IPA, CMP #### [facility] [address] [place] [address] Dr. Toy Macario Glucose [Mass/Vol] 131 mg/dL Critically high 74-106 [facility] Comment on above: Performed By: #### L IPA, CMP #### [facility] [address] [place] [address] Dr. Toy Macario PROF 14(COMP METB)on 022 Albumin [Mass/Vol] 1.9 g/dL Critically low 3.5-5.0 [facility] Comment on above: Performed By: #### L IPA, CMP #### [facility] [address] [place] [address] Dr. Toy Macario Albumin/Globulin [Mass ratio] 0.5 {ratio} Normal [facility] Comment on above: Performed By: #### L IPA, CMP #### [facility] [address] [place] [address] Dr. Toy Macario ALP [Catalytic activity/Vol] 60 U/L Normal 38-126 [facility] Comment on above: Performed By: #### L IPA, CMP #### [facility] [address] [place] [address] Dr. Toy Macario ALT [Catalytic activity/Vol] 14 U/L Normal 9-52 [facility] Comment on above: Performed By: #### L IPA, CMP #### [facility] [address] [address] [address] Toy Macario Anion gap [Moles/Vol] 12.7 mmol/L Normal [facility] Comment on above: Performed By: #### L IPA, CMP #### [facility] [address] [address] [address] Toy Macario AST [Catalytic activity/Vol] 13 U/L Critically low 14-36 [facility] Comment on above: Performed By: #### L IPA, CMP #### [facility] [address] [address] [address] Toy Macario Bilirubin [Mass/Vol] 0.3 mg/dL Normal 0.2-1.3 [facility] Comment on above: Performed By: #### L IPA, CMP #### [facility] [address] [place] [address] Dr. Toy Macario Calcium [Mass/Vol] 8.6 mg/dL Normal 8.4-10.2 [facility] Comment on above: Performed By: #### L IPA, CMP #### [facility] [address] [address] [address] Toy Macario Chloride [Moles/Vol] 106 mmol/L Normal 98-107 [facility] Comment on above: Performed By: #### L IPA, CMP #### [facility] [address] [address] [address] Toy Macario CO2 [Moles/Vol] 26.9 mmol/L Normal 22.0-30.0 [facility] Comment on above: Performed By: #### L IPA, CMP #### [facility] [address] [address] [address] Toy Macario Creatinine [Mass/Vol] 0.59 mg/dL Normal 0.52-1.04 [facility] Comment on above: Performed By: #### L IPA, CMP #### [facility] [address] [address] [address] Toy Macario EGFR-AF EQUATORIAL GUINEAN >60 Normal >=60 [facility] Comment on above: Performed By: #### L IPA, CMP #### [facility] [address] [address] [address] Toy Macario EGFR-NON AF EQUATORIAL GUINEAN >60 Normal >=60 [facility] Comment on above: Performed By: #### L IPA, CMP #### [facility] [address] [address] [address] Toy Macario Globulin (S) [Mass/Vol] 4.0 g/dL Normal [facility] Comment on above: Performed By: #### L IPA, CMP #### [facility] [address] [address] [address] Toy Macario Glucose [Mass/Vol] 109 mg/dL Critically high 74-106 [facility] Comment on above: Performed By: #### L IPA, CMP #### [facility] [address] [place] [address] Dr. Toy Macario Potassium [Moles/Vol] 3.6 mmol/L Normal 3.4-5.0 [facility] Comment on above: Performed By: #### L IPA, CMP #### [facility] [address] [place] [address] Dr. Toy Macario Protein [Mass/Vol] 5.9 g/dL Critically low 6.1-8.2 [facility] Comment on above: Performed By: #### L IPA, CMP #### [facility] [address] [address] [address] Toy Macario Sodium [Moles/Vol] 142 mmol/L Normal 137-145 [facility] Comment on above: Performed By: #### L IPA, CMP #### [facility] [address] [place] [address] Dr. Toy Macario Urea nitrogen [Mass/Vol] 9.0 mg/dL Normal 7.0-17.0 [facility] Comment on above: Performed By: #### L IPA, CMP #### [facility] [address] [place] [address] Dr. Toy Macario Urea nitrogen/Creatinine [Mass ratio] 15.3 mg/mg Normal [facility] Comment on above: Performed By: #### L IPA, CMP #### [facility] [address] [place] [address] Dr. Toy Macario TRIGLYCERIDEon 04-22-2021 Triglyceride [Mass/Vol] 84 mg/dL Normal <=150 [facility] Comment on above: Performed By: #### L IPA, CMP #### [facility] [address] [place] [address] Dr. Toy Macario CBC AUTO DIFFon 04-21-2021 BASO # 0.1 103/ul Normal 0.0-0.1 [facility] Comment on above: Performed By: #### C VDTBH #### [facility] [address] [place] [address] Dr. Toy Macario Basophils/100 WBC (Bld) 0.7 % Normal 0.2-2.0 [facility] Comment on above: Performed By: #### C VDTBH #### [facility] [address] [place] [address] Dr. Toy Macario EO # 0.1 103/ul Normal 0.0-0.7 [facility] Comment on above: Performed By: #### C VDTBH #### [facility] [address] [place] [address] Dr. Toy Macario Eosinophils/100 WBC (Bld) 1.5 % Normal 0.9-7.0 [facility] Comment on above: Performed By: #### C VDTBH #### [facility] [address] [place] [address] Dr. Toy Macario Erythrocyte distribution width (RBC) [Ratio] 13.8 % Normal 11.0-15.0 [facility] Comment on above: Performed By: #### C VDTBH #### [facility] [address] [place] [address] Dr. Toy Macario Hematocrit (Bld) [Volume fraction] 26.3 % Critically low 36.0-48.0 [facility] Comment on above: Performed By: #### C VDTBH #### [facility] [address] [place] [address] Dr. Toy Macario Hemoglobin (Bld) [Mass/Vol] 8.2 g/dL Critically low 12.0-16.0 [facility] Comment on above: Performed By: #### C VDTBH #### [facility] [address] [place] [address] Dr. Toy Macario IG # 0.13 10e3/ul Critically high 0.00-0.03 [facility] Comment on above: Performed By: #### C VDTBH #### [facility] [address] [address] [address] Toy Macario IG % 1.8 % Critically high 0.0-0.5 [facility] Comment on above: Performed By: #### C VDTBH #### [facility] [address] [place] [address] Dr. Toy Macario LYMPH # 1.3 103/ul Normal 1.2-3.8 [facility] Comment on above: Performed By: #### C VDTBH #### [facility] [address] [place] [address] Dr. Toy Macario Lymphocytes/100 WBC (Bld) 18.6 % Critically low 20.5-60.0 [facility] Comment on above: Performed By: #### C VDTBH #### [facility] [address] [place] [address] Dr. Toy Macario MANUAL DIFF REQ NO Normal [facility] Comment on above: Performed By: #### C VDTBH #### [facility] [address] [place] [address] Dr. Toy Macario MCH (RBC) [Entitic mass] 27.7 pg Normal 26.7-34.0 [facility] Comment on above: Performed By: #### C VDTBH #### [facility] [address] [place] [address] Dr. Toy Macario MCHC (RBC) [Mass/Vol] 31.2 g/dL Normal 29.9-35.2 [facility] Comment on above: Performed By: #### C VDTBH #### [facility] [address] [place] [address] Dr. Toy Macario MCV (RBC) [Entitic vol] 88.9 fL Normal 81.0-99.0 [facility] Comment on above: Performed By: #### C VDTBH #### [facility] [address] [place] [address] Dr. Toy Macario MONO # 0.4 103/ul Normal 0.3-0.8 [facility] Comment on above: Performed By: #### C VDTBH #### [facility] [address] [place] [address] Dr. Toy Macario Monocytes/100 WBC (Bld) 6.0 % Normal 1.7-12.0 [facility] Comment on above: Performed By: #### C VDTBH #### [facility] [address] [place] [address] Dr. Toy Macario NEUT # 5.2 103/ul Normal 1.4-6.5 [facility] Comment on above: Performed By: #### C VDTBH #### [facility] [address] [place] [address] Dr. Toy Macario Neutrophils/100 WBC (Bld) 71.4 % Normal 43.0-75.0 [facility] Comment on above: Performed By: #### C VDTBH #### [facility] [address] [place] [address] Dr. Toy Macario Platelet mean volume (Bld) [Entitic vol] 9.9 fL Normal 9.5-13.5 [facility] Comment on above: Performed By: #### C VDTBH #### [facility] [address] [place] [address] Dr. Toy Macario PLT 245 103/ul Normal 150-450 [facility] Comment on above: Performed By: #### C VDTBH #### [facility] [address] [place] [address] Dr. Toy Macario RBC 2.96 106/ul Critically low 4.20-5.40 [facility] Comment on above: Performed By: #### C VDTBH #### [facility] [address] [place] [address] Dr. Toy Macario WBC 7.2 103/ul Normal 4.0-11.0 [facility] Comment on above: Performed By: #### C VDTBH #### [facility] [address] [place] [address] Dr. Toy Macario LIPASEon 04-21-2021 Lipase [Catalytic activity/Vol] 645.0 U/L Critically high 23.0-300.0 [facility] Comment on above: Performed By: #### O DEVENDRA #### [facility] [address] [place] [address] Dr. Toy Macario MAGNESIUMon 04-21-2021 Magnesium [Mass/Vol] 2.0 mg/dL Normal 1.6-2.3 [facility] Comment on above: Performed By: #### O DEVENDRA #### [facility] [address] [place] [address] Dr. Toy Macario PHOSPHORUSon 04-21-2021 Phosphate [Mass/Vol] 3.6 mg/dL Normal 2.5-4.5 [facility] Comment on above: Performed By: #### O DEVENDRA #### [facility] [address] [place] [address] Dr. Toy Macario POTASSIUMon 04-21-2021 Potassium [Moles/Vol] 3.5 mmol/L Normal 3.4-5.0 [facility] Comment on above: Performed By: #### K #### [facility] [address] [place] [address] Dr. Toy Macario PROF 14(COMP METB)on 022 Albumin [Mass/Vol] 1.8 g/dL Critically low 3.5-5.0 [facility] Comment on above: Performed By: #### O DEVENDRA #### [facility] [address] [place] [address] Dr. Toy Macario Albumin/Globulin [Mass ratio] 0.4 {ratio} Normal [facility] Comment on above: Performed By: #### O DEVENDRA #### [facility] [address] [place] [address] Dr. Toy Macario ALP [Catalytic activity/Vol] 65 U/L Normal 38-126 [facility] Comment on above: Performed By: #### O DEVENDRA #### [facility] [address] [address] [address] Toy Macario ALT [Catalytic activity/Vol] 13 U/L Normal 9-52 [facility] Comment on above: Performed By: #### O DEVENDRA #### [facility] [address] [address] [address] Toy Macario Anion gap [Moles/Vol] 8.2 mmol/L Normal [facility] Comment on above: Performed By: #### O DEVENDRA #### [facility] [address] [address] [address] Toy Macario AST [Catalytic activity/Vol] 14 U/L Normal 14-36 [facility] Comment on above: Performed By: #### O DEVENDRA #### [facility] [address] [place] [address] Dr. Toy Macario Bilirubin [Mass/Vol] 0.3 mg/dL Normal 0.2-1.3 [facility] Comment on above: Performed By: #### O DEVENDRA #### [facility] [address] [address] [address] Toy Macario Calcium [Mass/Vol] 8.3 mg/dL Critically low 8.4-10.2 [facility] Comment on above: Performed By: #### O DEVENDRA #### [facility] [address] [address] [address] Toy Macario Chloride [Moles/Vol] 106 mmol/L Normal 98-107 [facility] Comment on above: Performed By: #### O DEVENDRA #### [facility] [address] [address] [address] Toy Macario CO2 [Moles/Vol] 27.7 mmol/L Normal 22.0-30.0 [facility] Comment on above: Performed By: #### O DEVENDRA #### [facility] [address] [address] [address] Toy Macario Creatinine [Mass/Vol] 0.59 mg/dL Normal 0.52-1.04 [facility] Comment on above: Performed By: #### O DEVENDRA #### [facility] [address] [address] [address] Toy Macario EGFR-AF EQUATORIAL GUINEAN >60 Normal >=60 [facility] Comment on above: Performed By: #### O DEVENDRA #### [facility] [address] [address] [address] Toy Macario EGFR-NON AF EQUATORIAL GUINEAN >60 Normal >=60 [facility] Comment on above: Performed By: #### O DEVENDRA #### [facility] [address] [address] [address] Toy Macario Globulin (S) [Mass/Vol] 4.3 g/dL Normal [facility] Comment on above: Performed By: #### O DEVENDRA #### [facility] [address] [place] [address] Dr. Toy Macario Glucose [Mass/Vol] 117 mg/dL Critically high 74-106 [facility] Comment on above: Performed By: #### O DEVENDRA #### [facility] [address] [place] [address] Dr. Toy Macario Potassium [Moles/Vol] 2.9 mmol/L Critically low 3.4-5.0 [facility] Comment on above: Result Comment: Test Repeated. Criticall Value Verified Performed By: #### O DEVENDRA #### [facility] [address] [place] [address] Dr. Toy Macario Protein [Mass/Vol] 6.1 g/dL Normal 6.1-8.2 [facility] Comment on above: Performed By: #### O DEVENDRA #### [facility] [address] [address] [address] Toy Macario Sodium [Moles/Vol] 139 mmol/L Normal 137-145 [facility] Comment on above: Performed By: #### O DEVENDRA #### [facility] [address] [address] [address] Toy Macario Urea nitrogen [Mass/Vol] 7.0 mg/dL Normal 7.0-17.0 [facility] Comment on above: Performed By: #### O DEVENDRA #### [facility] [address] [place] [address] Dr. Toy Macario Urea nitrogen/Creatinine [Mass ratio] 11.9 mg/mg Normal [facility] Comment on above: Performed By: #### O DEVENDRA #### [facility] [address] [place] [address] Dr. Toy Macario TRIGLYCERIDEon 04-21-2021 Triglyceride [Mass/Vol] 182 mg/dL Critically high <=150 [facility] Comment on above: Performed By: #### L IPA, CMP #### [facility] [address] [place] [address] Dr. Toy Macario CBC AUTO DIFFon 04-20-2021 BASO # 0.0 103/ul Normal 0.0-0.1 [facility] Comment on above: Performed By: #### C BC #### [facility] [address] [place] [address] Dr. Toy Macario Basophils/100 WBC (Bld) 0.3 % Normal 0.2-2.0 [facility] Comment on above: Performed By: #### C BC #### [facility] [address] [place] [address] Dr. Toy Macario EO # 0.1 103/ul Normal 0.0-0.7 [facility] Comment on above: Performed By: #### C BC #### [facility] [address] [place] [address] Dr. Toy Macario Eosinophils/100 WBC (Bld) 1.2 % Normal 0.9-7.0 [facility] Comment on above: Performed By: #### C BC #### [facility] [address] [place] [address] Dr. Toy Macario Erythrocyte distribution width (RBC) [Ratio] 13.9 % Normal 11.0-15.0 [facility] Comment on above: Performed By: #### C BC #### [facility] [address] [place] [address] Dr. Toy Macario Hematocrit (Bld) [Volume fraction] 26.4 % Critically low 36.0-48.0 [facility] Comment on above: Performed By: #### C BC #### [facility] [address] [address] [address] Toy Macario Hemoglobin (Bld) [Mass/Vol] 8.3 g/dL Critically low 12.0-16.0 [facility] Comment on above: Performed By: #### C BC #### [facility] [address] [address] [address] Toy Macario IG # 0.03 10e3/ul Normal 0.00-0.03 [facility] Comment on above: Performed By: #### C BC #### [facility] [address] [place] [address] Dr. Toy Macario IG % 0.5 % Normal 0.0-0.5 [facility] Comment on above: Performed By: #### C BC #### [facility] [address] [place] [address] Dr. Toy Macario LYMPH # 1.1 103/ul Critically low 1.2-3.8 [facility] Comment on above: Performed By: #### C BC #### [facility] [address] [place] [address] Dr. Toy Macario Lymphocytes/100 WBC (Bld) 18.3 % Critically low 20.5-60.0 [facility] Comment on above: Performed By: #### C BC #### [facility] [address] [place] [address] Dr. Toy Macario MANUAL DIFF REQ NO Normal [facility] Comment on above: Performed By: #### C BC #### [facility] [address] [place] [address] Dr. Toy Macario MCH (RBC) [Entitic mass] 27.7 pg Normal 26.7-34.0 [facility] Comment on above: Performed By: #### C BC #### [facility] [address] [place] [address] Dr. Toy Macario MCHC (RBC) [Mass/Vol] 31.4 g/dL Normal 29.9-35.2 [facility] Comment on above: Performed By: #### C BC #### [facility] [address] [address] [address] Toy Macario MCV (RBC) [Entitic vol] 88.0 fL Normal 81.0-99.0 [facility] Comment on above: Performed By: #### C BC #### [facility] [address] [address] [address] Toy Macario MONO # 0.4 103/ul Normal 0.3-0.8 [facility] Comment on above: Performed By: #### C BC #### [facility] [address] [place] [address] Dr. Toy Macario Monocytes/100 WBC (Bld) 6.3 % Normal 1.7-12.0 [facility] Comment on above: Performed By: #### C BC #### [facility] [address] [place] [address] Dr. Toy Macario NEUT # 4.3 103/ul Normal 1.4-6.5 [facility] Comment on above: Performed By: #### C BC #### [facility] [address] [place] [address] Dr. Toy Macario Neutrophils/100 WBC (Bld) 73.4 % Normal 43.0-75.0 [facility] Comment on above: Performed By: #### C BC #### [facility] [address] [place] [address] Dr. Toy Macario Platelet mean volume (Bld) [Entitic vol] 9.3 fL Critically low 9.5-13.5 [facility] Comment on above: Performed By: #### C BC #### [facility] [address] [place] [address] Dr. Toy Macario PLT 242 103/ul Normal 150-450 [facility] Comment on above: Performed By: #### C BC #### [facility] [address] [place] [address] Dr. Toy Macario RBC 3.00 106/ul Critically low 4.20-5.40 [facility] Comment on above: Performed By: #### C BC #### [facility] [address] [place] [address] Dr. Toy Macario WBC 5.8 103/ul Normal 4.0-11.0 [facility] Comment on above: Performed By: #### C BC #### [facility] [address] [place] [address] Dr. Toy Macario LIPASEon 04-20-2021 Lipase [Catalytic activity/Vol] 519.0 U/L Critically high 23.0-300.0 [facility] Comment on above: Performed By: #### L IPA, CMP #### [facility] [address] [place] [address] Dr. Toy Macario POINT OF CARE GLUCOSEon 04-06 Glucose [Mass/Vol] 104 mg/dL Normal 74-106 [facility] Comment on above: Performed By: #### C VDTB #### [facility] [address] [place] [address] Dr. Toy Macario Glucose [Mass/Vol] 105 mg/dL Normal 74-106 [facility] Comment on above: Performed By: #### L IPA, CMP #### [facility] [address] [place] [address] Dr. Toy Macario Glucose [Mass/Vol] 109 mg/dL Critically high 74-106 [facility] Comment on above: Performed By: #### O DEVENDRA #### [facility] [address] [place] [address] Dr. Toy Macario PROF 14(COMP METB)on 022 Albumin [Mass/Vol] 1.8 g/dL Critically low 3.5-5.0 [facility] Comment on above: Performed By: #### L IPA, CMP #### [facility] [address] [place] [address] Dr. Toy Macario Albumin/Globulin [Mass ratio] 0.4 {ratio} Normal [facility] Comment on above: Performed By: #### L IPA, CMP #### [facility] [address] [place] [address] Dr. Toy Macario ALP [Catalytic activity/Vol] 67 U/L Normal 38-126 [facility] Comment on above: Performed By: #### L IPA, CMP #### [facility] [address] [address] [address] Toy Macario ALT [Catalytic activity/Vol] 17 U/L Normal 9-52 [facility] Comment on above: Performed By: #### L IPA, CMP #### [facility] [address] [address] [address] Toy Macario Anion gap [Moles/Vol] 8.9 mmol/L Normal [facility] Comment on above: Performed By: #### L IPA, CMP #### [facility] [address] [address] [address] Toy Macario AST [Catalytic activity/Vol] 15 U/L Normal 14-36 [facility] Comment on above: Performed By: #### L IPA, CMP #### [facility] [address] [address] [address] Toy Macario Bilirubin [Mass/Vol] 0.3 mg/dL Normal 0.2-1.3 [facility] Comment on above: Performed By: #### L IPA, CMP #### [facility] [address] [address] [address] Toy Macario Calcium [Mass/Vol] 8.8 mg/dL Normal 8.4-10.2 [facility] Comment on above: Performed By: #### L IPA, CMP #### [facility] [address] [address] [address] Toy Macario Chloride [Moles/Vol] 105 mmol/L Normal 98-107 [facility] Comment on above: Performed By: #### L IPA, CMP #### [facility] [address] [address] [address] Toy Macario CO2 [Moles/Vol] 27.3 mmol/L Normal 22.0-30.0 [facility] Comment on above: Performed By: #### L IPA, CMP #### [facility] [address] [address] [address] Toy Macario Creatinine [Mass/Vol] 0.56 mg/dL Normal 0.52-1.04 [facility] Comment on above: Performed By: #### L IPA, CMP #### [facility] [address] [address] [address] Toy Macario EGFR-AF EQUATORIAL GUINEAN >60 Normal >=60 [facility] Comment on above: Performed By: #### L IPA, CMP #### [facility] [address] [address] [address] Toy Macario EGFR-NON AF EQUATORIAL GUINEAN >60 Normal >=60 [facility] Comment on above: Performed By: #### L IPA, CMP #### [facility] [address] [address] [address] Toy Macario Globulin (S) [Mass/Vol] 4.5 g/dL Normal [facility] Comment on above: Performed By: #### L IPA, CMP #### [facility] [address] [address] [address] Toy Macario Glucose [Mass/Vol] 103 mg/dL Normal 74-106 [facility] Comment on above: Performed By: #### L IPA, CMP #### [facility] [address] [address] [address] Toy Macario Potassium [Moles/Vol] 3.2 mmol/L Critically low 3.4-5.0 [facility] Comment on above: Performed By: #### L IPA, CMP #### [facility] [address] [address] [address] Toy Macario Protein [Mass/Vol] 6.3 g/dL Normal 6.1-8.2 [facility] Comment on above: Performed By: #### L IPA, CMP #### [facility] [address] [address] [address] Toy Macario Sodium [Moles/Vol] 138 mmol/L Normal 137-145 [facility] Comment on above: Performed By: #### L IPA, CMP #### [facility] [address] [address] [address] Toy Macario Urea nitrogen [Mass/Vol] 7.0 mg/dL Normal 7.0-17.0 [facility] Comment on above: Performed By: #### L IPA, CMP #### [facility] [address] [place] [address] Dr. Toy Macario Urea nitrogen/Creatinine [Mass ratio] 12.5 mg/mg Normal [facility] Comment on above: Performed By: #### L IPA, CMP #### [facility] [address] [place] [address] Dr. Toy Macario CBC AUTO DIFFon 04-19-2021 BASO # 0.0 103/ul Normal 0.0-0.1 [facility] Comment on above: Performed By: #### C MP, LIPA #### [facility] [address] [place] [address] Dr. Toy Macario Basophils/100 WBC (Bld) 0.8 % Normal 0.2-2.0 [facility] Comment on above: Performed By: #### C MP, LIPA #### [facility] [address] [place] [address] Dr. Toy Macario EO # 0.1 103/ul Normal 0.0-0.7 [facility] Comment on above: Performed By: #### C MP, LIPA #### [facility] [address] [place] [address] Dr. Toy Macario Eosinophils/100 WBC (Bld) 1.9 % Normal 0.9-7.0 [facility] Comment on above: Performed By: #### C MP, LIPA #### [facility] [address] [place] [address] Dr. Toy Macario Erythrocyte distribution width (RBC) [Ratio] 14.0 % Normal 11.0-15.0 [facility] Comment on above: Performed By: #### C MP, LIPA #### [facility] [address] [place] [address] Dr. Toy Macario Hematocrit (Bld) [Volume fraction] 27.6 % Critically low 36.0-48.0 [facility] Comment on above: Performed By: #### C MP, LIPA #### [facility] [address] [place] [address] Dr. Toy Macario Hemoglobin (Bld) [Mass/Vol] 8.5 g/dL Critically low 12.0-16.0 [facility] Comment on above: Performed By: #### C MP, LIPA #### [facility] [address] [address] [address] Toy Macario IG # 0.03 10e3/ul Normal 0.00-0.03 [facility] Comment on above: Performed By: #### C MP, LIPA #### [facility] [address] [place] [address] Dr. Toy Macario IG % 0.6 % Critically high 0.0-0.5 [facility] Comment on above: Performed By: #### C MP, LIPA #### [facility] [address] [place] [address] Dr. Toy Macario LYMPH # 1.0 103/ul Critically low 1.2-3.8 [facility] Comment on above: Performed By: #### C MP, LIPA #### [facility] [address] [place] [address] Dr. Toy Macario Lymphocytes/100 WBC (Bld) 17.9 % Critically low 20.5-60.0 [facility] Comment on above: Performed By: #### C MP, LIPA #### [facility] [address] [place] [address] Dr. Toy Macario MANUAL DIFF REQ NO Normal [facility] Comment on above: Performed By: #### C MP, LIPA #### [facility] [address] [address] [address] Toy Macario MCH (RBC) [Entitic mass] 27.4 pg Normal 26.7-34.0 [facility] Comment on above: Performed By: #### C MP, LIPA #### [facility] [address] [place] [address] Dr. Toy Macario MCHC (RBC) [Mass/Vol] 30.8 g/dL Normal 29.9-35.2 [facility] Comment on above: Performed By: #### C MP, LIPA #### [facility] [address] [address] [address] Toy Macario MCV (RBC) [Entitic vol] 89.0 fL Normal 81.0-99.0 [facility] Comment on above: Performed By: #### C MP, LIPA #### [facility] [address] [place] [address] Dr. Toy Macario MONO # 0.4 103/ul Normal 0.3-0.8 [facility] Comment on above: Performed By: #### C MP, LIPA #### [facility] [address] [place] [address] Dr. Toy Macario Monocytes/100 WBC (Bld) 7.7 % Normal 1.7-12.0 [facility] Comment on above: Performed By: #### C MP, LIPA #### [facility] [address] [place] [address] Dr. Toy Macario NEUT # 3.8 103/ul Normal 1.4-6.5 [facility] Comment on above: Performed By: #### C MP, LIPA #### [facility] [address] [place] [address] Dr. Toy Macario Neutrophils/100 WBC (Bld) 71.1 % Normal 43.0-75.0 [facility] Comment on above: Performed By: #### C MP, LIPA #### [facility] [address] [place] [address] Dr. Toy Macario Platelet mean volume (Bld) [Entitic vol] 9.4 fL Critically low 9.5-13.5 [facility] Comment on above: Performed By: #### C MP, LIPA #### [facility] [address] [place] [address] Dr. Toy Macario PLT 259 103/ul Normal 150-450 [facility] Comment on above: Performed By: #### C MP, LIPA #### [facility] [address] [place] [address] Dr. Toy Macario RBC 3.10 106/ul Critically low 4.20-5.40 [facility] Comment on above: Performed By: #### C MP, LIPA #### [facility] [address] [place] [address] Dr. Toy Macario WBC 5.3 103/ul Normal 4.0-11.0 [facility] Comment on above: Performed By: #### C MP, LIPA #### [facility] [address] [place] [address] Dr. Toy Macario LIPASEon 04-19-2021 Lipase [Catalytic activity/Vol] 447.0 U/L Critically high 23.0-300.0 [facility] Comment on above: Performed By: #### C MP, LIPA #### [facility] [address] [place] [address] Dr. Toy Macario POINT OF CARE GLUCOSEon 04-06 Glucose [Mass/Vol] 107 mg/dL Critically high 74-106 [facility] Comment on above: Performed By: #### L IPA, CMP #### [facility] [address] [place] [address] Dr. Toy Macario PROF 14(COMP METB)on 022 Albumin [Mass/Vol] 1.8 g/dL Critically low 3.5-5.0 [facility] Comment on above: Performed By: #### C MP, LIPA #### [facility] [address] [place] [address] Dr. Toy Macario Albumin/Globulin [Mass ratio] 0.4 {ratio} Normal [facility] Comment on above: Performed By: #### C MP, LIPA #### [facility] [address] [place] [address] Dr. Toy Macario ALP [Catalytic activity/Vol] 81 U/L Normal 38-126 [facility] Comment on above: Performed By: #### C MP, LIPA #### [facility] [address] [place] [address] Dr. Toy Macario ALT [Catalytic activity/Vol] 27 U/L Normal 9-52 [facility] Comment on above: Performed By: #### C MP, LIPA #### [facility] [address] [address] [address] Toy Macario Anion gap [Moles/Vol] 9.3 mmol/L Normal [facility] Comment on above: Performed By: #### C MP, LIPA #### [facility] [address] [place] [address] Dr. Toy Macario AST [Catalytic activity/Vol] 21 U/L Normal 14-36 [facility] Comment on above: Performed By: #### C MP, LIPA #### [facility] [address] [place] [address] Dr. Toy Macario Bilirubin [Mass/Vol] 0.3 mg/dL Normal 0.2-1.3 [facility] Comment on above: Performed By: #### C MP, LIPA #### [facility] [address] [place] [address] Dr. Toy Macario Calcium [Mass/Vol] 9.0 mg/dL Normal 8.4-10.2 [facility] Comment on above: Performed By: #### C MP, LIPA #### [facility] [address] [place] [address] Dr. Toy Macario Chloride [Moles/Vol] 105 mmol/L Normal 98-107 [facility] Comment on above: Performed By: #### C MP, LIPA #### [facility] [address] [place] [address] Dr. Toy Macario CO2 [Moles/Vol] 27.9 mmol/L Normal 22.0-30.0 [facility] Comment on above: Performed By: #### C MP, LIPA #### [facility] [address] [place] [address] Dr. oTy Macario Creatinine [Mass/Vol] 0.61 mg/dL Normal 0.52-1.04 [facility] Comment on above: Performed By: #### C MP, LIPA #### [facility] [address] [place] [address] Dr. Toy Macario EGFR-AF EQUATORIAL GUINEAN >60 Normal >=60 [facility] Comment on above: Performed By: #### C MP, LIPA #### [facility] [address] [address] [address] Toy Macario EGFR-NON AF EQUATORIAL GUINEAN >60 Normal >=60 [facility] Comment on above: Performed By: #### C MP, LIPA #### [facility] [address] [place] [address] Dr. Toy Macario Globulin (S) [Mass/Vol] 4.8 g/dL Normal [facility] Comment on above: Performed By: #### C MP, LIPA #### [facility] [address] [place] [address] Dr. Toy Macario Glucose [Mass/Vol] 107 mg/dL Critically high 74-106 [facility] Comment on above: Performed By: #### C MP, LIPA #### [facility] [address] [place] [address] Dr. Toy Macario Potassium [Moles/Vol] 3.2 mmol/L Critically low 3.4-5.0 [facility] Comment on above: Performed By: #### C MP, LIPA #### [facility] [address] [place] [address] Dr. Toy Macario Protein [Mass/Vol] 6.6 g/dL Normal 6.1-8.2 [facility] Comment on above: Performed By: #### C MP, LIPA #### [facility] [address] [place] [address] Dr. Toy Macario Sodium [Moles/Vol] 139 mmol/L Normal 137-145 [facility] Comment on above: Performed By: #### C MP, LIPA #### [facility] [address] [place] [address] Dr. Toy Macario Urea nitrogen [Mass/Vol] 6.0 mg/dL Critically low 7.0-17.0 [facility] Comment on above: Performed By: #### C MP, LIPA #### [facility] [address] [place] [address] Dr. Toy Macario Urea nitrogen/Creatinine [Mass ratio] 9.8 mg/mg Normal [facility] Comment on above: Performed By: #### C MP, LIPA #### [facility] [address] [place] [address] Dr. Toy Macario CBC AUTO DIFFon 04-18-2021 BASO # 0.0 103/ul Normal 0.0-0.1 [facility] Comment on above: Performed By: #### L IPA, CMP #### [facility] [address] [place] [address] Dr. Toy Macario Basophils/100 WBC (Bld) 0.6 % Normal 0.2-2.0 [facility] Comment on above: Performed By: #### L IPA, CMP #### [facility] [address] [place] [address] Dr. Toy Macario EO # 0.1 103/ul Normal 0.0-0.7 [facility] Comment on above: Performed By: #### L IPA, CMP #### [facility] [address] [place] [address] Dr. Toy Macario Eosinophils/100 WBC (Bld) 1.8 % Normal 0.9-7.0 [facility] Comment on above: Performed By: #### L IPA, CMP #### [facility] [address] [place] [address] Dr. Toy Macario Erythrocyte distribution width (RBC) [Ratio] 14.0 % Normal 11.0-15.0 [facility] Comment on above: Performed By: #### L IPA, CMP #### [facility] [address] [place] [address] Dr. Toy Macario Hematocrit (Bld) [Volume fraction] 27.9 % Critically low 36.0-48.0 [facility] Comment on above: Performed By: #### L IPA, CMP #### [facility] [address] [place] [address] Dr. Toy Macario Hemoglobin (Bld) [Mass/Vol] 8.5 g/dL Critically low 12.0-16.0 [facility] Comment on above: Performed By: #### L IPA, CMP #### [facility] [address] [place] [address] Dr. Toy Macario IG # 0.03 10e3/ul Normal 0.00-0.03 [facility] Comment on above: Performed By: #### L IPA, CMP #### [facility] [address] [place] [address] Dr. Toy Macario IG % 0.4 % Normal 0.0-0.5 [facility] Comment on above: Performed By: #### L IPA, CMP #### [facility] [address] [place] [address] Dr. Toy Macario LYMPH # 1.0 103/ul Critically low 1.2-3.8 [facility] Comment on above: Performed By: #### L IPA, CMP #### [facility] [address] [place] [address] Dr. Toy Macario Lymphocytes/100 WBC (Bld) 14.3 % Critically low 20.5-60.0 [facility] Comment on above: Performed By: #### L IPA, CMP #### [facility] [address] [place] [address] Dr. Toy Macario MANUAL DIFF REQ NO Normal [facility] Comment on above: Performed By: #### L IPA, CMP #### [facility] [address] [place] [address] Dr. Toy Macario MCH (RBC) [Entitic mass] 27.5 pg Normal 26.7-34.0 [facility] Comment on above: Performed By: #### L IPA, CMP #### [facility] [address] [place] [address] Dr. Toy Macario MCHC (RBC) [Mass/Vol] 30.5 g/dL Normal 29.9-35.2 [facility] Comment on above: Performed By: #### L IPA, CMP #### [facility] [address] [place] [address] Dr. Toy Macario MCV (RBC) [Entitic vol] 90.3 fL Normal 81.0-99.0 [facility] Comment on above: Performed By: #### L IPA, CMP #### [facility] [address] [place] [address] Dr. Toy Macario MONO # 0.5 103/ul Normal 0.3-0.8 [facility] Comment on above: Performed By: #### L IPA, CMP #### [facility] [address] [place] [address] Dr. Toy Macario Monocytes/100 WBC (Bld) 6.8 % Normal 1.7-12.0 [facility] Comment on above: Performed By: #### L IPA, CMP #### [facility] [address] [place] [address] Dr. Toy Macario NEUT # 5.4 103/ul Normal 1.4-6.5 [facility] Comment on above: Performed By: #### L IPA, CMP #### [facility] [address] [place] [address] Dr. Toy Macario Neutrophils/100 WBC (Bld) 76.1 % Critically high 43.0-75.0 [facility] Comment on above: Performed By: #### L IPA, CMP #### [facility] [address] [place] [address] Dr. Toy Macario Platelet mean volume (Bld) [Entitic vol] 9.6 fL Normal 9.5-13.5 [facility] Comment on above: Performed By: #### L IPA, CMP #### [facility] [address] [place] [address] Dr. Toy Macario PLT 253 103/ul Normal 150-450 [facility] Comment on above: Performed By: #### L IPA, CMP #### [facility] [address] [place] [address] Dr. Toy Macario RBC 3.09 106/ul Critically low 4.20-5.40 [facility] Comment on above: Performed By: #### L IPA, CMP #### [facility] [address] [place] [address] Dr. Toy Macario WBC 7.1 103/ul Normal 4.0-11.0 [facility] Comment on above: Performed By: #### L IPA, CMP #### [facility] [address] [place] [address] ABD/PELV W CONon [...] by: URIEL GUILLEN Date: 2021-04-18 12:55 Normal [facility] LIPASEon 04-18-2021 Lipase [Catalytic activity/Vol] 330.0 U/L Critically high 23.0-300.0 [facility] Comment on above: Performed By: #### C MP, LIPA #### [facility] [address] [place] [address] Dr. Toy Macario OCC BLD IMMUNOASSAYon 2021 OCCULT BLOOD Negative Normal NEGATIVE [facility] Comment on above: Performed By: #### O DEVENDRA #### [facility] [address] [place] [address] Dr. Toy Macario POINT OF CARE GLUCOSEon 04-06 Glucose [Mass/Vol] 110 mg/dL Critically high 74-106 [facility] Comment on above: Performed By: #### C BC #### [facility] [address] [place] [address] Dr. Toy Macario Glucose [Mass/Vol] 103 mg/dL Normal 74-106 [facility] Comment on above: Performed By: #### C MP, LIPA #### [facility] [address] [place] [address] Dr. Toy Macario Glucose [Mass/Vol] 112 mg/dL Critically high 74-106 [facility] Comment on above: Performed By: #### L IPA, CMP #### [facility] [address] [place] [address] Dr. Toy Macario PROF 14(COMP METB)on 022 Albumin [Mass/Vol] 1.7 g/dL Critically low 3.5-5.0 [facility] Comment on above: Performed By: #### C MP, LIPA #### [facility] [address] [place] [address] Dr. Toy Macario Albumin/Globulin [Mass ratio] 0.4 {ratio} Normal [facility] Comment on above: Performed By: #### C MP, LIPA #### [facility] [address] [place] [address] Dr. Toy Macario ALP [Catalytic activity/Vol] 65 U/L Normal 38-126 [facility] Comment on above: Performed By: #### C MP, LIPA #### [facility] [address] [address] [address] Toy Macario ALT [Catalytic activity/Vol] 15 U/L Normal 9-52 [facility] Comment on above: Performed By: #### C MP, LIPA #### [facility] [address] [address] [address] Toy Macario Anion gap [Moles/Vol] 11.4 mmol/L Normal [facility] Comment on above: Performed By: #### C MP, LIPA #### [facility] [address] [address] [address] Toy Macario AST [Catalytic activity/Vol] 11 U/L Critically low 14-36 [facility] Comment on above: Performed By: #### C MP, LIPA #### [facility] [address] [place] [address] Dr. Toy Macario Bilirubin [Mass/Vol] 0.3 mg/dL Normal 0.2-1.3 [facility] Comment on above: Performed By: #### C MP, LIPA #### [facility] [address] [address] [address] Toy Macario Calcium [Mass/Vol] 8.7 mg/dL Normal 8.4-10.2 [facility] Comment on above: Performed By: #### C MP, LIPA #### [facility] [address] [place] [address] Dr. Toy Macario Chloride [Moles/Vol] 106 mmol/L Normal 98-107 [facility] Comment on above: Performed By: #### C MP, LIPA #### [facility] [address] [address] [address] Toy Macario CO2 [Moles/Vol] 27.1 mmol/L Normal 22.0-30.0 [facility] Comment on above: Performed By: #### C MP, LIPA #### [facility] [address] [address] [address] Toy Macario Creatinine [Mass/Vol] 0.60 mg/dL Normal 0.52-1.04 [facility] Comment on above: Performed By: #### C MP, LIPA #### [facility] [address] [address] [address] Toy Macario EGFR-AF EQUATORIAL GUINEAN >60 Normal >=60 [facility] Comment on above: Performed By: #### C MP, LIPA #### [facility] [address] [address] [address] Toy Macario EGFR-NON AF EQUATORIAL GUINEAN >60 Normal >=60 [facility] Comment on above: Performed By: #### C MP, LIPA #### [facility] [address] [address] [address] Toy Macario Globulin (S) [Mass/Vol] 4.6 g/dL Normal [facility] Comment on above: Performed By: #### C MP, LIPA #### [facility] [address] [address] [address] Toy Macario Glucose [Mass/Vol] 110 mg/dL Critically high 74-106 [facility] Comment on above: Performed By: #### C MP, LIPA #### [facility] [address] [address] [address] Toy Macario Potassium [Moles/Vol] 3.5 mmol/L Normal 3.4-5.0 [facility] Comment on above: Performed By: #### C MP, LIPA #### [facility] [address] [address] [address] Toy Macario Protein [Mass/Vol] 6.3 g/dL Normal 6.1-8.2 [facility] Comment on above: Performed By: #### C MP, LIPA #### [facility] [address] [address] [address] Toy Macario Sodium [Moles/Vol] 141 mmol/L Normal 137-145 [facility] Comment on above: Performed By: #### C MP, LIPA #### [facility] [address] [address] [address] Toy aMcario Urea nitrogen [Mass/Vol] 10.0 mg/dL Normal 7.0-17.0 [facility] Comment on above: Performed By: #### C MP, LIPA #### [facility] [address] [place] [address] Dr. Toy Macario Urea nitrogen/Creatinine [Mass ratio] 16.7 mg/mg Normal [facility] Comment on above: Performed By: #### C MP, LIPA #### [facility] [address] [place] [address] Dr. Toy Macario CBC AUTO DIFFon 04-17-2021 BASO # 0.1 103/ul Normal 0.0-0.1 [facility] Comment on above: Performed By: #### C MP, LIPA #### [facility] [address] [place] [address] Dr. Toy Macario Basophils/100 WBC (Bld) 0.6 % Normal 0.2-2.0 [facility] Comment on above: Performed By: #### C MP, LIPA #### [facility] [address] [place] [address] Dr. Toy aMcario EO # 0.1 103/ul Normal 0.0-0.7 [facility] Comment on above: Performed By: #### C MP, LIPA #### [facility] [address] [place] [address] Dr. Toy Macario Eosinophils/100 WBC (Bld) 1.6 % Normal 0.9-7.0 [facility] Comment on above: Performed By: #### C MP, LIPA #### [facility] [address] [place] [address] Dr. Toy Macario Erythrocyte distribution width (RBC) [Ratio] 14.4 % Normal 11.0-15.0 [facility] Comment on above: Performed By: #### C MP, LIPA #### [facility] [address] [place] [address] Dr. Toy Macario Hematocrit (Bld) [Volume fraction] 28.5 % Critically low 36.0-48.0 [facility] Comment on above: Performed By: #### C MP, LIPA #### [facility] [address] [place] [address] Dr. Toy Macario Hemoglobin (Bld) [Mass/Vol] 8.7 g/dL Critically low 12.0-16.0 [facility] Comment on above: Performed By: #### C MP, LIPA #### [facility] [address] [address] [address] Toy Macario IG # 0.06 10e3/ul Critically high 0.00-0.03 [facility] Comment on above: Performed By: #### C MP, LIPA #### [facility] [address] [place] [address] Dr. Toy Macario IG % 0.7 % Critically high 0.0-0.5 [facility] Comment on above: Performed By: #### C MP, LIPA #### [facility] [address] [place] [address] Dr. Toy Macario LYMPH # 1.1 103/ul Critically low 1.2-3.8 [facility] Comment on above: Performed By: #### C MP, LIPA #### [facility] [address] [place] [address] Dr. Toy Macario Lymphocytes/100 WBC (Bld) 12.2 % Critically low 20.5-60.0 [facility] Comment on above: Performed By: #### C MP, LIPA #### [facility] [address] [place] [address] Dr. Toy Macario MANUAL DIFF REQ NO Normal [facility] Comment on above: Performed By: #### C MP, LIPA #### [facility] [address] [place] [address] Dr. Toy Macario MCH (RBC) [Entitic mass] 27.6 pg Normal 26.7-34.0 [facility] Comment on above: Performed By: #### C MP, LIPA #### [facility] [address] [place] [address] Dr. Toy Macario MCHC (RBC) [Mass/Vol] 30.5 g/dL Normal 29.9-35.2 [facility] Comment on above: Performed By: #### C MP, LIPA #### [facility] [address] [place] [address] Dr. Toy Macario MCV (RBC) [Entitic vol] 90.5 fL Normal 81.0-99.0 [facility] Comment on above: Performed By: #### C MP, LIPA #### [facility] [address] [place] [address] Dr. Toy Macario MONO # 0.6 103/ul Normal 0.3-0.8 [facility] Comment on above: Performed By: #### C MP, LIPA #### [facility] [address] [place] [address] Dr. Toy Macario Monocytes/100 WBC (Bld) 7.2 % Normal 1.7-12.0 [facility] Comment on above: Performed By: #### C MP, LIPA #### [facility] [address] [place] [address] Dr. Toy Macario NEUT # 6.7 103/ul Critically high 1.4-6.5 [facility] Comment on above: Performed By: #### C MP, LIPA #### [facility] [address] [place] [address] Dr. Toy Macario Neutrophils/100 WBC (Bld) 77.7 % Critically high 43.0-75.0 [facility] Comment on above: Performed By: #### C MP, LIPA #### [facility] [address] [place] [address] Dr. Toy Macario Platelet mean volume (Bld) [Entitic vol] 9.4 fL Critically low 9.5-13.5 [facility] Comment on above: Performed By: #### C MP, LIPA #### [facility] [address] [place] [address] Dr. Toy Macario PLT 272 103/ul Normal 150-450 [facility] Comment on above: Performed By: #### C MP, LIPA #### [facility] [address] [place] [address] Dr. Toy Macario RBC 3.15 106/ul Critically low 4.20-5.40 [facility] Comment on above: Performed By: #### C LESLIE LIPA #### [facility] [address] [place] [address] Dr. Toy Macario WBC 8.6 103/ul Normal 4.0-11.0 [facility] Comment on above: Performed By: #### C LESLIE, LIPA #### [facility] [address] [place] [address] Dr. Toy Macario CULTURE URINEon 04-17-2021 CULTURE [...] F Trimethoprim/Sulfameth oxazole >=320 R F Normal [facility] Comment on above: Performed By: #### C VDTB #### [facility] [address] [place] [address] Dr. Toy Macario LIPASEon 04-17-2021 Lipase [Catalytic activity/Vol] 374.0 U/L Critically high 23.0-300.0 [facility] Comment on above: Performed By: #### L STEPHON CMP #### [facility] [address] [place] [address] Dr. Toy Macario POINT OF CARE GLUCOSEon 04-06 Glucose [Mass/Vol] 108 mg/dL Critically high 74-106 [facility] Comment on above: Performed By: #### L STEPHON CMP #### [facility] [address] [place] [address] Dr. Toy Macario Glucose [Mass/Vol] 105 mg/dL Normal 74-106 [facility] Comment on above: Performed By: #### C LESLIE LIPA #### [facility] [address] [address] [address] Toy Macario Glucose [Mass/Vol] 99 mg/dL Normal 74-106 [facility] Comment on above: Performed By: #### C BC #### [facility] [address] [address] [address] Toy Macario Glucose [Mass/Vol] 96 mg/dL Normal 74-106 [facility] Comment on above: Performed By: #### L IPA, CMP #### [facility] [address] [address] [address] Toy Macario PROF 14(COMP METB)on 022 Albumin [Mass/Vol] 1.9 g/dL Critically low 3.5-5.0 [facility] Comment on above: Performed By: #### L IPA, CMP #### [facility] [address] [place] [address] Dr. Toy Macario Albumin/Globulin [Mass ratio] 0.4 {ratio} Normal [facility] Comment on above: Performed By: #### L IPA, CMP #### [facility] [address] [place] [address] Dr. Toy Macario ALP [Catalytic activity/Vol] 68 U/L Normal 38-126 [facility] Comment on above: Performed By: #### L IPA, CMP #### [facility] [address] [place] [address] Dr. Toy Macario ALT [Catalytic activity/Vol] 21 U/L Normal 9-52 [facility] Comment on above: Performed By: #### L IPA, CMP #### [facility] [address] [place] [address] Dr. Toy Macario Anion gap [Moles/Vol] 14.2 mmol/L Normal [facility] Comment on above: Performed By: #### L IPA, CMP #### [facility] [address] [place] [address] Dr. Toy Macario AST [Catalytic activity/Vol] 13 U/L Critically low 14-36 [facility] Comment on above: Performed By: #### L IPA, CMP #### [facility] [address] [address] [address] Toy Macario Bilirubin [Mass/Vol] 0.5 mg/dL Normal 0.2-1.3 [facility] Comment on above: Performed By: #### L IPA, CMP #### [facility] [address] [place] [address] Dr. Toy Macaroi Calcium [Mass/Vol] 8.6 mg/dL Normal 8.4-10.2 [facility] Comment on above: Performed By: #### L IPA, CMP #### [facility] [address] [place] [address] Dr. Toy Macario Chloride [Moles/Vol] 106 mmol/L Normal 98-107 [facility] Comment on above: Performed By: #### L IPA, CMP #### [facility] [address] [place] [address] Dr. Toy Macario CO2 [Moles/Vol] 26.3 mmol/L Normal 22.0-30.0 [facility] Comment on above: Performed By: #### L IPA, CMP #### [facility] [address] [place] [address] Dr. Toy Macario Creatinine [Mass/Vol] 0.78 mg/dL Normal 0.52-1.04 [facility] Comment on above: Performed By: #### L IPA, CMP #### [facility] [address] [place] [address] Dr. Toy Macario EGFR-AF EQUATORIAL GUINEAN >60 Normal >=60 [facility] Comment on above: Performed By: #### L IPA, CMP #### [facility] [address] [place] [address] Dr. Toy Macario EGFR-NON AF EQUATORIAL GUINEAN >60 Normal >=60 [facility] Comment on above: Performed By: #### L IPA, CMP #### [facility] [address] [place] [address] Dr. Toy Macario Globulin (S) [Mass/Vol] 4.5 g/dL Normal [facility] Comment on above: Performed By: #### L IPA, CMP #### [facility] [address] [place], [place] [id number] Dr. Toy Macario Glucose [Mass/Vol] 89 mg/dL Normal 74-106 [facility] Comment on above: Performed By: #### L IPA, CMP #### [facility] [address] [place] [address] Dr. Toy Macario Potassium [Moles/Vol] 3.4 mmol/L Normal 3.4-5.0 [facility] Comment on above: Performed By: #### L IPA, CMP #### [facility] [address] [place] [address] Dr. Toy Macario Protein [Mass/Vol] 6.4 g/dL Normal 6.1-8.2 [facility] Comment on above: Performed By: #### L IPA, CMP #### [facility] [address] [place] [address] Dr. Toy Macario Sodium [Moles/Vol] 143 mmol/L Normal 137-145 [facility] Comment on above: Performed By: #### L IPA, CMP #### [facility] [address] [place] [address] Dr. Toy Macario Urea nitrogen [Mass/Vol] 9.0 mg/dL Normal 7.0-17.0 [facility] Comment on above: Performed By: #### L IPA, CMP #### [facility] [address] [place] [address] Dr. Toy Macario Urea nitrogen/Creatinine [Mass ratio] 11.5 mg/mg Normal [facility] Comment on above: Performed By: #### L IPA, CMP #### [facility] [address] [place] [address] Dr. Toy Macario CBC AUTO DIFFon 04-16-2021 BASO # 0.1 103/ul Normal 0.0-0.1 [facility] Comment on above: Performed By: #### C MP, LIPA #### [facility] [address] [place] [address] Dr. Toy Macario Basophils/100 WBC (Bld) 0.4 % Normal 0.2-2.0 [facility] Comment on above: Performed By: #### C MP, LIPA #### [facility] [address] [address] [address] Toy Macario EO # 0.0 103/ul Normal 0.0-0.7 [facility] Comment on above: Performed By: #### C MP, LIPA #### [facility] [address] [place] [address] Dr. Toy Macario Eosinophils/100 WBC (Bld) 0.3 % Critically low 0.9-7.0 [facility] Comment on above: Performed By: #### C MP, LIPA #### [facility] [address] [place] [address] Dr. Toy Macario Erythrocyte distribution width (RBC) [Ratio] 14.1 % Normal 11.0-15.0 [facility] Comment on above: Performed By: #### C MP, LIPA #### [facility] [address] [place] [address] Dr. Toy Macario Hematocrit (Bld) [Volume fraction] 31.9 % Critically low 36.0-48.0 [facility] Comment on above: Performed By: #### C MP, LIPA #### [facility] [address] [place] [address] Dr. Toy Macario Hemoglobin (Bld) [Mass/Vol] 9.9 g/dL Critically low 12.0-16.0 [facility] Comment on above: Performed By: #### C MP, LIPA #### [facility] [address] [place] [address] Dr. Toy Macario IG # 0.08 10e3/ul Critically high 0.00-0.03 [facility] Comment on above: Performed By: #### C MP, LIPA #### [facility] [address] [place] [address] Dr. Toy Macario IG % 0.7 % Critically high 0.0-0.5 [facility] Comment on above: Performed By: #### C MP, LIPA #### [facility] [address] [place] [address] Dr. Toy Macario LYMPH # 0.9 103/ul Critically low 1.2-3.8 [facility] Comment on above: Performed By: #### C MP, LIPA #### [facility] [address] [place] [address] Dr. Toy Macario Lymphocytes/100 WBC (Bld) 7.8 % Critically low 20.5-60.0 [facility] Comment on above: Performed By: #### C MP, LIPA #### [facility] [address] [place] [address] Dr. Toy Macario MANUAL DIFF REQ NO Normal [facility] Comment on above: Performed By: #### C MP, LIPA #### [facility] [address] [place] [address] Dr. Toy Macario MCH (RBC) [Entitic mass] 27.5 pg Normal 26.7-34.0 [facility] Comment on above: Performed By: #### C MP, LIPA #### [facility] [address] [place] [address] Dr. Toy Macario MCHC (RBC) [Mass/Vol] 31.0 g/dL Normal 29.9-35.2 [facility] Comment on above: Performed By: #### C MP, LIPA #### [facility] [address] [place] [address] Dr. Toy Macario MCV (RBC) [Entitic vol] 88.6 fL Normal 81.0-99.0 [facility] Comment on above: Performed By: #### C MP, LIPA #### [facility] [address] [place] [address] Dr. Toy Macario MONO # 0.6 103/ul Normal 0.3-0.8 [facility] Comment on above: Performed By: #### C MP, LIPA #### [facility] [address] [place] [address] Dr. Toy Macario Monocytes/100 WBC (Bld) 5.3 % Normal 1.7-12.0 [facility] Comment on above: Performed By: #### C MP, LIPA #### [facility] [address] [place] [address] Dr. Toy Macario NEUT # 10.0 103/ul Critically high 1.4-6.5 [facility] Comment on above: Performed By: #### C MP, LIPA #### [facility] [address] [place] [address] Dr. Toy Macario Neutrophils/100 WBC (Bld) 85.5 % Critically high 43.0-75.0 [facility] Comment on above: Performed By: #### C MP, LIPA #### [facility] [address] [place] [address] Dr. Toy Macario Platelet mean volume (Bld) [Entitic vol] 9.3 fL Critically low 9.5-13.5 [facility] Comment on above: Performed By: #### C MP, LIPA #### [facility] [address] [place] [address] Dr. Toy Macario PLT 321 103/ul Normal 150-450 [facility] Comment on above: Performed By: #### C MP, LIPA #### [facility] [address] [place] [address] Dr. Toy Macario RBC 3.60 106/ul Critically low 4.20-5.40 [facility] Comment on above: Performed By: #### C MP, LIPA #### [facility] [address] [place] [address] Dr. Toy Macario WBC 11.7 103/ul Critically high 4.0-11.0 [facility] Comment on above: Performed By: #### C MP, LIPA #### [facility] [address] [place] [address] Dr. Toy Macario LIPASEon 04-16-2021 Lipase [Catalytic activity/Vol] 667.0 U/L Critically high 23.0-300.0 [facility] Comment on above: Performed By: #### O DEVENDRA #### [facility] [address] [place] [address] Dr. Toy Macario POINT OF CARE GLUCOSEon 04-06 Glucose [Mass/Vol] 89 mg/dL Normal 74-106 [facility] Comment on above: Performed By: #### O DEVENDRA #### [facility] [address] [address] [address] Toy Macario Glucose [Mass/Vol] 92 mg/dL Normal 74-106 [facility] Comment on above: Performed By: #### L IPA, CMP #### [facility] [address] [place] [address] Dr. Toy Macario Glucose [Mass/Vol] 100 mg/dL Normal 74-106 [facility] Comment on above: Performed By: #### C VDTBH #### [facility] [address] [place] [address] Dr. Toy Macario PROF 14(COMP METB)on 022 Albumin [Mass/Vol] 1.9 g/dL Critically low 3.5-5.0 [facility] Comment on above: Performed By: #### O DEVENDRA #### [facility] [address] [place] [address] Dr. Toy Macario Albumin/Globulin [Mass ratio] 0.4 {ratio} Normal [facility] Comment on above: Performed By: #### O DEVENDRA #### [facility] [address] [place] [address] Dr. Toy Macario ALP [Catalytic activity/Vol] 69 U/L Normal 38-126 [facility] Comment on above: Performed By: #### O DEVENDRA #### [facility] [address] [place] [address] Dr. oTy Macario ALT [Catalytic activity/Vol] 27 U/L Normal 9-52 [facility] Comment on above: Performed By: #### O DEVENDRA #### [facility] [address] [place] [address] Dr. Toy Macario Anion gap [Moles/Vol] 13.5 mmol/L Normal [facility] Comment on above: Performed By: #### O DEVENDRA #### [facility] [address] [place] [address] Dr. Toy Macario AST [Catalytic activity/Vol] 20 U/L Normal 14-36 [facility] Comment on above: Performed By: #### O DEVENDRA #### [facility] [address] [address] [address] Toy Macario Bilirubin [Mass/Vol] 0.6 mg/dL Normal 0.2-1.3 [facility] Comment on above: Performed By: #### O DEVENDRA #### [facility] [address] [address] [address] Toy Macario Calcium [Mass/Vol] 8.7 mg/dL Normal 8.4-10.2 [facility] Comment on above: Performed By: #### O DEVENDRA #### [facility] [address] [address] [address] Toy Macario Chloride [Moles/Vol] 106 mmol/L Normal 98-107 [facility] Comment on above: Performed By: #### O DEVENDRA #### [facility] [address] [place] [address] Dr. Toy Macario CO2 [Moles/Vol] 24.7 mmol/L Normal 22.0-30.0 [facility] Comment on above: Performed By: #### O DEVENDRA #### [facility] [address] [place] [address] Dr. Toy Macario Creatinine [Mass/Vol] 0.92 mg/dL Normal 0.52-1.04 [facility] Comment on above: Performed By: #### O DEVENDRA #### [facility] [address] [place] [address] Dr. Toy Macario EGFR-AF EQUATORIAL GUINEAN >60 Normal >=60 [facility] Comment on above: Performed By: #### O DEVENDRA #### [facility] [address] [place] [address] Dr. Toy Macario EGFR-NON AF EQUATORIAL GUINEAN >60 Normal >=60 [facility] Comment on above: Performed By: #### O DEVENDRA #### [facility] [address] [place] [address] Dr. Toy Macario Globulin (S) [Mass/Vol] 4.7 g/dL Normal [facility] Comment on above: Performed By: #### O DEVENDRA #### [facility] [address] [address] [address] Toy Macario Glucose [Mass/Vol] 126 mg/dL Critically high 74-106 [facility] Comment on above: Performed By: #### O DEVENDRA #### [facility] [address] [address] [address] Toy Macario Potassium [Moles/Vol] 3.2 mmol/L Critically low 3.4-5.0 [facility] Comment on above: Performed By: #### O DEVENDRA #### [facility] [address] [address] [address] Toy Macario Protein [Mass/Vol] 6.6 g/dL Normal 6.1-8.2 [facility] Comment on above: Performed By: #### O DEVENDRA #### [facility] [address] [place] [address] Dr. Toy Macario Sodium [Moles/Vol] 141 mmol/L Normal 137-145 [facility] Comment on above: Performed By: #### O DEVENDRA #### [facility] [address] [place] [address] Dr. Toy Macario Urea nitrogen [Mass/Vol] 8.0 mg/dL Normal 7.0-17.0 [facility] Comment on above: Performed By: #### O DEVENDRA #### [facility] [address] [place] [address] Dr. Toy Macario Urea nitrogen/Creatinine [Mass ratio] 8.7 mg/mg Normal [facility] Comment on above: Performed By: #### O DEVENDRA #### [facility] [address] [place] [address] Dr. Toy Macario AMYLASEon 04-15-2021 Amylase [Catalytic activity/Vol] 97 U/L Normal 31-110 [facility] Comment on above: Performed By: #### C MP, LIPA #### [facility] [address] [place] [address] Dr. Toy Macario CBC AUTO DIFFon 04-15-2021 BASO # 0.1 103/ul Normal 0.0-0.1 [facility] Comment on above: Performed By: #### C BC #### [facility] [address] [address] [address] Toy Macario Basophils/100 WBC (Bld) 0.5 % Normal 0.2-2.0 [facility] Comment on above: Performed By: #### C BC #### [facility] [address] [place] [address] Dr. Toy Macario EO # 0.0 103/ul Normal 0.0-0.7 [facility] Comment on above: Performed By: #### C BC #### [facility] [address] [place] [address] Dr. Toy Macario Eosinophils/100 WBC (Bld) 0.3 % Critically low 0.9-7.0 [facility] Comment on above: Performed By: #### C BC #### [facility] [address] [place] [address] Dr. Toy Macario Erythrocyte distribution width (RBC) [Ratio] 13.9 % Normal 11.0-15.0 [facility] Comment on above: Performed By: #### C BC #### [facility] [address] [place] [address] Dr. Toy Macario Hematocrit (Bld) [Volume fraction] 34.2 % Critically low 36.0-48.0 [facility] Comment on above: Performed By: #### C BC #### [facility] [address] [place] [address] Dr. Toy Macario Hemoglobin (Bld) [Mass/Vol] 10.8 g/dL Critically low 12.0-16.0 [facility] Comment on above: Performed By: #### C BC #### [facility] [address] [place] [address] Dr. Toy Macario IG # 0.05 10e3/ul Critically high 0.00-0.03 [facility] Comment on above: Performed By: #### C BC #### [facility] [address] [place] [address] Dr. Toy Macario IG % 0.4 % Normal 0.0-0.5 [facility] Comment on above: Performed By: #### C BC #### [facility] [address] [address] [address] Toy Macario LYMPH # 0.9 103/ul Critically low 1.2-3.8 [facility] Comment on above: Performed By: #### C BC #### [facility] [address] [place] [address] Dr. Toy Macario Lymphocytes/100 WBC (Bld) 8.4 % Critically low 20.5-60.0 [facility] Comment on above: Performed By: #### C BC #### [facility] [address] [place] [address] Dr. Toy Macario MANUAL DIFF REQ NO Normal [facility] Comment on above: Performed By: #### C BC #### [facility] [address] [place] [address] Dr. Toy Macario MCH (RBC) [Entitic mass] 28.1 pg Normal 26.7-34.0 [facility] Comment on above: Performed By: #### C BC #### [facility] [address] [place] [address] Dr. Toy Macario MCHC (RBC) [Mass/Vol] 31.6 g/dL Normal 29.9-35.2 [facility] Comment on above: Performed By: #### C BC #### [facility] [address] [place] [address] Dr. Toy Macario MCV (RBC) [Entitic vol] 88.8 fL Normal 81.0-99.0 [facility] Comment on above: Performed By: #### C BC #### [facility] [address] [place] [address] Dr. Toy Macario MONO # 0.7 103/ul Normal 0.3-0.8 [facility] Comment on above: Performed By: #### C BC #### [facility] [address] [place] [address] Dr. Toy Macario Monocytes/100 WBC (Bld) 6.3 % Normal 1.7-12.0 [facility] Comment on above: Performed By: #### C BC #### [facility] [address] [address] [address] Toy Macario NEUT # 9.4 103/ul Critically high 1.4-6.5 [facility] Comment on above: Performed By: #### C BC #### [facility] [address] [address] [address] Toy Macario Neutrophils/100 WBC (Bld) 84.1 % Critically high 43.0-75.0 [facility] Comment on above: Performed By: #### C BC #### [facility] [address] [address] [address] Toy Macario Platelet mean volume (Bld) [Entitic vol] 9.1 fL Critically low 9.5-13.5 [facility] Comment on above: Performed By: #### C BC #### [facility] [address] [place] [address] Dr. Toy Macario PLT 361 103/ul Normal 150-450 [facility] Comment on above: Performed By: #### C BC #### [facility] [address] [address] [address] Toy Macario RBC 3.85 106/ul Critically low 4.20-5.40 [facility] Comment on above: Performed By: #### C BC #### [facility] [address] [place] [address] Dr. Toy Macario WBC 11.2 103/ul Critically high 4.0-11.0 [facility] Comment on above: Performed By: #### C BC #### [facility] [address] [place] [address] ABD/PELV W CONon [...] URIEL GUILLEN Date: 2021-04-15 11:33 Normal [facility] CULTURE BLOODon 04-15-2021 Microscopic examination of blood, culture Culture Observations: NO GROWTH AT 5 DAYS. Normal [facility] Comment on above: Performed By: #### C [facility] #### [facility] [address] [place] [address] Dr. Toy Macario Covid-19 PCR ([facility])on 04-06 SARS-CoV-2 (COVID-19) RNA PITO+probe Ql (Unsp spec) Not detected Normal NOT DETECTED [facility] Comment on above: Result Comment: When [...] for this test is supported by the [employer] and [employer] Service's declaration that [...] used). Performed By: #### C BC #### [facility] [address] [place] [address] Dr. Toy Macario ER URINE PROFILEon 2 Bilirubin Ql (U) Negative Normal NEGATIVE [facility] Comment on above: Performed By: #### C MP, LIPA #### [facility] [address] [place] [address] Dr. Toy Macario Clarity (U) CLOUDY Abnormal CLEAR [facility] Comment on above: Performed By: #### C MP, LIPA #### [facility] [address] [place] [address] Dr. Toy Macario Color (U) YELLOW Normal YELLOW [facility] Comment on above: Performed By: #### C MP, LIPA #### [facility] [address] [place] [address] Dr. Toy Macario ERUAHD A micrscopic examination will be performed if indicated. Normal [facility] Comment on above: Performed By: #### C MP, LIPA #### [facility] [address] [place] [address] Dr. Toy Macario Glucose Ql (U) Negative Normal NEGATIVE [facility] Comment on above: Performed By: #### C MP, LIPA #### [facility] [address] [place] [address] Dr. Toy Macario Hemoglobin Ql (U) SMALL Abnormal NEGATIVE [facility] Comment on above: Performed By: #### C MP, LIPA #### [facility] [address] [place] [address] Dr. Toy Macario Ketones Ql (U) 15 mg/dl Abnormal NEGATIVE [facility] Comment on above: Performed By: #### C MP, LIPA #### [facility] [address] [place] [address] Dr. Toy Macario LEUKOCYTES TRACE Abnormal NEGATIVE [facility] Comment on above: Performed By: #### C MP, LIPA #### [facility] [address] [place] [address] Dr. Toy Macario Nitrite Ql (U) Negative Normal NEGATIVE [facility] Comment on above: Performed By: #### C MP, LIPA #### [facility] [address] [place] [address] Dr. Toy Macario pH (U) 6.0 [pH] Normal 5-9 [facility] Comment on above: Performed By: #### C MP, LIPA #### [facility] [address] [place] [address] Dr. Toy Macario Protein (U) [Mass/Vol] 100 mg/dL Abnormal NEGAT CHRISTINA/ TRACE [facility] Comment on above: Performed By: #### C MP, LIPA #### [facility] [address] [place] [address] Dr. Toy Macario SPEC GRAVITY 1.025 Normal 1.005-<=1.0 25 [facility] Comment on above: Performed By: #### C MP, LIPA #### [facility] [address] [place] [address] Dr. Toy Macario UR MICRO IND INDICATED Normal [facility] Comment on above: Performed By: #### C MP, LIPA #### [facility] [address] [place] [address] Dr. Toy Macario Urobilinogen Qn (U) 1.0 {Lisha'U}/dL Normal 0.2 - 1. 0 [facility] Comment on above: Performed By: #### C MP, LIPA #### [facility] [address] [place] [address] Dr. Toy Macario LIPASEon 04-15-2021 Lipase [Catalytic activity/Vol] 929.0 U/L Critically high 23.0-300.0 [facility] Comment on above: Performed By: #### C MP, LIPA #### [facility] [address] [place] [address] Dr. Toy Macario LIVER PROFILEon 04-15-2021 Albumin [Mass/Vol] 2.3 g/dL Critically low 3.5-5.0 [facility] Comment on above: Performed By: #### C MP, LIPA #### [facility] [address] [place] [address] Dr. Toy Macario Albumin/Globulin [Mass ratio] 0.5 {ratio} Normal [facility] Comment on above: Performed By: #### C MP, LIPA #### [facility] [address] [place] [address] Dr. Toy Macario ALP [Catalytic activity/Vol] 73 U/L Normal 38-126 [facility] Comment on above: Performed By: #### C MP, LIPA #### [facility] [address] [place] [address] Dr. Toy Macario ALT [Catalytic activity/Vol] 29 U/L Normal 9-52 [facility] Comment on above: Performed By: #### C MP, LIPA #### [facility] [address] [place] [address] Dr. Toy Macario AST [Catalytic activity/Vol] 21 U/L Normal 14-36 [facility] Comment on above: Performed By: #### C MP, LIPA #### [facility] [address] [place] [address] Dr. Toy Macario BILI, CONJUGATED 0.1 mg/dL Normal 0.0-0.3 [facility] Comment on above: Performed By: #### C MP, LIPA #### [facility] [address] [place] [address] Dr. Toy Macario Bilirubin [Mass/Vol] 0.4 mg/dL Normal 0.2-1.3 [facility] Comment on above: Performed By: #### C MP, LIPA #### [facility] [address] [place] [address] Dr. Toy Macario Globulin (S) [Mass/Vol] 5.1 g/dL Normal [facility] Comment on above: Performed By: #### C MP, LIPA #### [facility] [address] [place] [address] Dr. Toy Macario Protein [Mass/Vol] 7.4 g/dL Normal 6.1-8.2 [facility] Comment on above: Performed By: #### C MP, LIPA #### [facility] [address] [place] [address] Dr. Toy Macario URon 04-15-2021 , QUAL Negative Normal NEGATIVE [facility] Comment on above: Performed By: #### P REGU #### [facility] [address] [place] [address] Dr. Toy Macario PROF CHEM 8 (BAS METB)on Anion gap [Moles/Vol] 10.5 mmol/L Normal [facility] Comment on above: Performed By: #### C MP, LIPA #### [facility] [address] [place] [address] Dr. Toy Macario Calcium [Mass/Vol] 9.0 mg/dL Normal 8.4-10.2 [facility] Comment on above: Performed By: #### C MP, LIPA #### [facility] [address] [place] [address] Dr. Toy Macario Chloride [Moles/Vol] 102 mmol/L Normal 98-107 [facility] Comment on above: Performed By: #### C MP, LIPA #### [facility] [address] [place] [address] Dr. Toy Macario CO2 [Moles/Vol] 27.5 mmol/L Normal 22.0-30.0 [facility] Comment on above: Performed By: #### C MP, LIPA #### [facility] [address] [address] [address] Toy Macario Creatinine [Mass/Vol] 0.68 mg/dL Normal 0.52-1.04 [facility] Comment on above: Performed By: #### C MP, LIPA #### [facility] [address] [address] [address] Toy Macario EGFR-AF EQUATORIAL GUINEAN >60 Normal >=60 [facility] Comment on above: Performed By: #### C MP, LIPA #### [facility] [address] [address] [address] Toy Macario EGFR-NON AF EQUATORIAL GUINEAN >60 Normal >=60 [facility] Comment on above: Performed By: #### C MP, LIPA #### [facility] [address] [address] [address] Toy Macario Glucose [Mass/Vol] 137 mg/dL Critically high 74-106 [facility] Comment on above: Performed By: #### C MP, LIPA #### [facility] [address] [address] [address] Toy Macario Potassium [Moles/Vol] 3.5 mmol/L Normal 3.4-5.0 [facility] Comment on above: Performed By: #### C MP, LIPA #### [facility] [address] [address] [address] Toy Macario Sodium [Moles/Vol] 139 mmol/L Normal 137-145 [facility] Comment on above: Performed By: #### C MP, LIPA #### [facility] [address] [address] [address] Toy Macario Urea nitrogen [Mass/Vol] 7.0 mg/dL Normal 7.0-17.0 [facility] Comment on above: Performed By: #### C MP, LIPA #### [facility] [address] [address] [address] Toy Macario Urea nitrogen/Creatinine [Mass ratio] 10.3 mg/mg Normal [facility] Comment on above: Performed By: #### C MP, LIPA #### [facility] [address] [address] [address] Toy Macario URINE MICROSCOPIC ONLYon AMORPHOUS CRYSTALS MODERATE Normal [facility] Comment on above: Performed By: #### C MP, LIPA #### [facility] [address] [address] [address] Toy Macario BACTERIA SMALL Abnormal NONE SEEN [facility] Comment on above: Performed By: #### C MP, LIPA #### [facility] [address] [address] [address] Toy Macario Bacteria identified Cx Nom (U) INDICATED Normal [facility] Comment on above: Performed By: #### C MP, LIPA #### [facility] [address] [place] [address] Dr. Tyo Macario CAST NONE SEEN Normal NONE SEEN [facility] Comment on above: Performed By: #### C MP, LIPA #### [facility] [address] [place] [address] Dr. Toy Macario Crystals LM Nom (Urine sed) SEEN Abnormal NONE SEEN [facility] Comment on above: Performed By: #### C MP, LIPA #### [facility] [address] [place] [address] Dr. Toy Macario Epithelial cells LM Ql (Urine sed) FEW Abnormal NONE SEEN /RARE [facility] Comment on above: Performed By: #### C MP, LIPA #### [facility] [address] [place] [address] Dr. Toy Macario MUCOUS SMALL Abnormal NONE SEEN [facility] Comment on above: Performed By: #### C MP, LIPA #### [facility] [address] [place] [address] Dr. Toy Macario RBC 2-5 Abnormal 0-2 [facility] Comment on above: Performed By: #### C MP, LIPA #### [facility] [address] [place] [address] Dr. Toy Macario WBC 5-10 Abnormal NONE SEEN [facility] Comment on above: Performed By: #### C MP, LIPA #### [facility] [address] [place] [address] Dr. Toy Macario CBC AUTO DIFFon 03-19-2021 BASO # 0.1 103/ul Normal 0.0-0.1 [facility] Comment on above: Performed By: #### O DEVENDRA #### [facility] [address] [place] [address] Dr. Toy Macario Basophils/100 WBC (Bld) 0.6 % Normal 0.2-2.0 [facility] Comment on above: Performed By: #### O DEVENRDA #### [facility] [address] [place] [address] Dr. Toy Macario EO # 0.1 103/ul Normal 0.0-0.7 [facility] Comment on above: Performed By: #### O DEVENDRA #### [facility] [address] [place] [address] Dr. Toy Macario Eosinophils/100 WBC (Bld) 0.5 % Critically low 0.9-7.0 [facility] Comment on above: Performed By: #### O DEVENDRA #### [facility] [address] [place] [address] Dr. Toy Macario Erythrocyte distribution width (RBC) [Ratio] 14.7 % Normal 11.0-15.0 [facility] Comment on above: Performed By: #### O DEVENDRA #### [facility] [address] [place] [address] Dr. Toy Macario Hematocrit (Bld) [Volume fraction] 40.8 % Normal 36.0-48.0 [facility] Comment on above: Performed By: #### O DEVENDRA #### [facility] [address] [place] [address] Dr. Toy Macario Hemoglobin (Bld) [Mass/Vol] 12.8 g/dL Normal 12.0-16.0 [facility] Comment on above: Performed By: #### O DEVENDRA #### [facility] [address] [place] [address] Dr. Toy Macario IG # 0.04 10e3/ul Critically high 0.00-0.03 [facility] Comment on above: Performed By: #### O DEVENDRA #### [facility] [address] [address] [address] Toy Macario IG % 0.3 % Normal 0.0-0.5 [facility] Comment on above: Performed By: #### O DEVENDRA #### [facility] [address] [address] [address] Toy Macario LYMPH # 1.0 103/ul Critically low 1.2-3.8 [facility] Comment on above: Performed By: #### O DEVENDRA #### [facility] [address] [place] [address] Dr. Toy Macario Lymphocytes/100 WBC (Bld) 8.1 % Critically low 20.5-60.0 [facility] Comment on above: Performed By: #### O DEVENDRA #### [facility] [address] [place] [address] Dr. Toy Macario MANUAL DIFF REQ NO Normal [facility] Comment on above: Performed By: #### O DEVENDRA #### [facility] [address] [place] [address] Dr. Toy Macario MCH (RBC) [Entitic mass] 28.1 pg Normal 26.7-34.0 [facility] Comment on above: Performed By: #### O DEVENDRA #### [facility] [address] [place] [address] Dr. Toy Macario MCHC (RBC) [Mass/Vol] 31.4 g/dL Normal 29.9-35.2 [facility] Comment on above: Performed By: #### O DEVENDRA #### [facility] [address] [place] [address] Dr. Toy Macario MCV (RBC) [Entitic vol] 89.7 fL Normal 81.0-99.0 [facility] Comment on above: Performed By: #### O DEVENDRA #### [facility] [address] [place] [address] Dr. Toy Macario MONO # 0.8 103/ul Normal 0.3-0.8 [facility] Comment on above: Performed By: #### O DEVENDRA #### [facility] [address] [place] [address] Dr. Toy Macario Monocytes/100 WBC (Bld) 6.3 % Normal 1.7-12.0 [facility] Comment on above: Performed By: #### O DEVENDRA #### [facility] [address] [place] [address] Dr. Toy Macario NEUT # 10.0 103/ul Critically high 1.4-6.5 [facility] Comment on above: Performed By: #### O DEVENDRA #### [facility] [address] [place] [address] Dr. Toy Macario Neutrophils/100 WBC (Bld) 84.2 % Critically high 43.0-75.0 [facility] Comment on above: Performed By: #### O DEVENDRA #### [facility] [address] [place] [address] Dr. Toy Macario Platelet mean volume (Bld) [Entitic vol] 9.5 fL Normal 9.5-13.5 [facility] Comment on above: Performed By: #### O DEVENDRA #### [facility] [address] [place] [address] Dr. Toy Macario PLT 216 103/ul Normal 150-450 [facility] Comment on above: Performed By: #### O DEVENDRA #### [facility] [address] [place] [address] Dr. Toy Macario RBC 4.55 106/ul Normal 4.20-5.40 [facility] Comment on above: Performed By: #### O DEVENDRA #### [facility] [address] [place] [address] Dr. Toy Macario WBC 11.9 103/ul Critically high 4.0-11.0 [facility] Comment on above: Performed By: #### O DEVENDRA #### [facility] [address] [place] [address] ABD/PELV W CONon [...] ART NIX Date: 2021-03-19 15:19 Normal [facility] CULTURE URINEon 03-19-2021 CULTURE URINE Culture Observations : LIGHT GROWTH OF MIXED GENITAL CHRIS. NO POTENTIAL PATHOGENS SEEN. Normal [facility] Comment on above: Performed By: #### C [facility] #### [facility] [address] [place] [address] Dr. Toy Macario Covid-19 PCR ([facility])on 03-06 SARS-CoV-2 (COVID-19) RNA PITO+probe Ql (Unsp spec) Not detected Normal NOT DETECTED [facility] Comment on above: Result Comment: When [...] for this test is supported by the [place] of [employer] and Human Service's declaration that [...] Performed By: #### C MP, LIPA #### [facility] [address] [place] [address] Dr. Toy Macario ER URINE PROFILEon 2 Bilirubin Ql (U) SMALL Abnormal NEGATIVE [facility] Comment on above: Performed By: #### C VDTBH #### [facility] [address] [place] [address] Dr. Toy Macario Clarity (U) SL CLOUDY Abnormal CLEAR [facility] Comment on above: Performed By: #### C VDTBH #### [facility] [address] [place] [address] Dr. Toy Macario Color (U) YELLOW Normal YELLOW [facility] Comment on above: Performed By: #### C VDTBH #### [facility] [address] [place] [address] Dr. Toy [place] A micrscopic examination will be performed if indicated. Normal [facility] Comment on above: Performed By: #### C VDTBH #### [facility] [address] [place] [address] Dr. Toy Macario Glucose Ql (U) Negative Normal NEGATIVE [facility] Comment on above: Performed By: #### C VDTBH #### [facility] [address] [place] [address] Dr. Toy Macario Hemoglobin Ql (U) Negative Normal NEGATIVE [facility] Comment on above: Performed By: #### C VDTBH #### [facility] [address] [place] [address] Dr. Toy Macario Ketones Ql (U) Negative Normal NEGATIVE [facility] Comment on above: Performed By: #### C VDTBH #### [facility] [address] [place] [address] Dr. Toy Macario LEUKOCYTES SMALL Abnormal NEGATIVE [facility] Comment on above: Performed By: #### C VDTBH #### [facility] [address] [place] [address] Dr. Toy Macario Nitrite Ql (U) Negative Normal NEGATIVE [facility] Comment on above: Performed By: #### C VDTBH #### [facility] [address] [place] [address] Dr. Toy Macario pH (U) 6.0 [pH] Normal 5-9 [facility] Comment on above: Performed By: #### C VDTBH #### [facility] [address] [place] [address] Dr. Toy Macario Protein (U) [Mass/Vol] 30 mg/dL Abnormal NEGAT CHRISTINA/ TRACE [facility] Comment on above: Performed By: #### C VDTBH #### [facility] [address] [place] [address] Dr. Toy Macario SPEC GRAVITY >=1.030 Abnormal 1.005-<=1.0 25 [facility] Comment on above: Performed By: #### C VDTBH #### [facility] [address] [place] [address] Dr. Toy Macario UR MICRO IND INDICATED Normal [facility] Comment on above: Performed By: #### C VDTBH #### [facility] [address] [place] [address] Dr. Toy Macario Urobilinogen Qn (U) 1.0 {Lisha'U}/dL Normal 0.2 - 1. 0 [facility] Comment on above: Performed By: #### C VDTBH #### [facility] [address] [place] [address] Dr. Toy Macario INFLUENZA A AND B AGon 03-19 INFLUANEGH SEE BELOW Normal [facility] Comment on above: Result Comment: Nega tive for Flu A protein angiten. Infection due to Flu A cannot be ruled out. Flu A angiten in the sample may be below the detection limit of the test. Performed By: #### L IPA, CMP #### [facility] [address] [place] [address] Dr. Toy Macario INFLUBNEG SEE BELOW Normal [facility] Comment on above: Result Comment: Nega tive for Flu B protein antigen. Infection due to Flu B cannot be ruled out. Flu B antigen in the sample may be below the detection limit of the test. Performed By: #### L IPA, CMP #### [facility] [address] [place] [address] Dr. Toy Macario INFLUENZA A AG Negative Normal NEGATIVE SEE COMMENT [facility] Comment on above: Performed By: #### L IPA, CMP #### [facility] [address] [place] [address] Dr. Toy Macario INFLUENZA B AG Negative Normal NEGATIVE SEE COMMENT [facility] Comment on above: Performed By: #### L IPA, CMP #### [facility] [address] [place] [address] Dr. Toy Macario INTERNAL CONTROLS Within Normal Limits Normal Wi thin Normal Limits [facility] Comment on above: Performed By: #### L IPA, CMP #### [facility] [address] [place] [address] Dr. Toy Macario LIPASEon 03-19-2021 Lipase [Catalytic activity/Vol] 134.0 U/L Normal 23.0-300.0 [facility] Comment on above: Performed By: #### C MP, LIPA #### [facility] [address] [place] [address] Dr. Toy Macario URon 03-19-2021 , QUAL Negative Normal NEGATIVE [facility] Comment on above: Performed By: #### O DEVENDRA #### [facility] [address] [address] [address] Toy Macario PROF 14(COMP METB)on 022 Albumin [Mass/Vol] 3.3 g/dL Critically low 3.5-5.0 [facility] Comment on above: Performed By: #### C MP, LIPA #### [facility] [address] [address] [address] Toy Macario Albumin/Globulin [Mass ratio] 0.8 {ratio} Normal [facility] Comment on above: Performed By: #### C MP, LIPA #### [facility] [address] [address] [address] Toy Macario ALP [Catalytic activity/Vol] 151 U/L Critically high 38-126 [facility] Comment on above: Performed By: #### C MP, LIPA #### [facility] [address] [place] [address] Dr. Toy Macario ALT [Catalytic activity/Vol] 105 U/L Critically high 9-52 [facility] Comment on above: Performed By: #### C MP, LIPA #### [facility] [address] [address] [address] Toy Macario Anion gap [Moles/Vol] 11.6 mmol/L Normal [facility] Comment on above: Performed By: #### C MP, LIPA #### [facility] [address] [address] [address] Toy Macario AST [Catalytic activity/Vol] 222 U/L Critically high 14-36 [facility] Comment on above: Performed By: #### C MP, LIPA #### [facility] [address] [address] [address] Toy Macario Bilirubin [Mass/Vol] 1.3 mg/dL Normal 0.2-1.3 [facility] Comment on above: Performed By: #### C MP, LIPA #### [facility] [address] [address] [address] Toy Macario Calcium [Mass/Vol] 8.8 mg/dL Normal 8.4-10.2 [facility] Comment on above: Performed By: #### C MP, LIPA #### [facility] [address] [address] [address] Toy Macario Chloride [Moles/Vol] 107 mmol/L Normal 98-107 [facility] Comment on above: Performed By: #### C MP, LIPA #### [facility] [address] [place] [address] Dr. Toy Macario CO2 [Moles/Vol] 25.7 mmol/L Normal 22.0-30.0 [facility] Comment on above: Performed By: #### C MP, LIPA #### [facility] [address] [place] [address] Dr. Toy Macario Creatinine [Mass/Vol] 0.92 mg/dL Normal 0.52-1.04 [facility] Comment on above: Performed By: #### C MP, LIPA #### [facility] [address] [place] [address] Dr. Toy Macario EGFR-AF EQUATORIAL GUINEAN >60 Normal >=60 [facility] Comment on above: Performed By: #### C MP, LIPA #### [facility] [address] [place] [address] Dr. Toy Macario EGFR-NON AF EQUATORIAL GUINEAN >60 Normal >=60 [facility] Comment on above: Performed By: #### C MP, LIPA #### [facility] [address] [place] [address] Dr. Toy Macario Globulin (S) [Mass/Vol] 3.9 g/dL Normal [facility] Comment on above: Performed By: #### C MP, LIPA #### [facility] [address] [place] [address] Dr. Toy Macario Glucose [Mass/Vol] 168 mg/dL Critically high 74-106 [facility] Comment on above: Performed By: #### C MP, LIPA #### [facility] [address] [place] [address] Dr. Toy Macario Potassium [Moles/Vol] 4.3 mmol/L Normal 3.4-5.0 [facility] Comment on above: Performed By: #### C MP, LIPA #### [facility] [address] [place] [address] Dr. Toy Macario Protein [Mass/Vol] 7.2 g/dL Normal 6.1-8.2 [facility] Comment on above: Performed By: #### C MP, LIPA #### [facility] [address] [place] [address] Dr. Toy Macario Sodium [Moles/Vol] 140 mmol/L Normal 137-145 [facility] Comment on above: Performed By: #### C MP, LIPA #### [facility] [address] [place] [address] Dr. Toy Macario Urea nitrogen [Mass/Vol] 8.0 mg/dL Normal 7.0-17.0 [facility] Comment on above: Performed By: #### C MP, LIPA #### [facility] [address] [place] [address] Dr. Toy Macario Urea nitrogen/Creatinine [Mass ratio] 8.7 mg/mg Normal [facility] Comment on above: Performed By: #### C MP, LIPA #### [facility] [address] [place] [address] Dr. Toy Macario URINE MICROSCOPIC ONLYon BACTERIA MODERATE Abnormal NONE SEEN [facility] Comment on above: Performed By: #### C VDTBH #### [facility] [address] [place] [address] Dr. Toy Macario Bacteria identified Cx Nom (U) INDICATED Normal [facility] Comment on above: Performed By: #### C VDTBH #### [facility] [address] [place] [address] Dr. Toy Macario CAST NONE SEEN Normal NONE SEEN [facility] Comment on above: Performed By: #### C VDTBH #### [facility] [address] [place] [address] Dr. Toy Macario Crystals LM Nom (Urine sed) NONE SEEN Normal NONE SEEN [facility] Comment on above: Performed By: #### C VDTBH #### [facility] [address] [address] [address] Toy Macario Epithelial cells LM Ql (Urine sed) MODERATE Abnormal NONE SEEN /RARE [facility] Comment on above: Performed By: #### C VDTBH #### [facility] [address] [address] [address] Toy Macario MUCOUS MODERATE Abnormal NONE SEEN [facility] Comment on above: Performed By: #### C VDTBH #### [facility] [address] [address] [address] Toy Macario RBC 5-10 Abnormal 0-2 [facility] Comment on above: Performed By: #### C VDTBH #### [facility] [address] [address] [address] Toy Macario WBC 10-20 Abnormal NONE SEEN [facility] Comment on above: Performed By: #### C VDTBH #### [facility] [address] [address] [address] Toy Macario Coding Summaryon 09-18-2020 [facility]oding [facility] YcyimbsrODd1kGr+PGhlYW Q+UW5GAUHyD56tuQUzmT1Y N6pXUE2ROWGKIPWYIT1MIC 9etKF2LVhaS3RxmfYb PbizcHKmEI93NAk1ZPR4nM kkPMiohV2jiCNoN9x2FyZg SP31rU35JAptHOSgGiB4Oy ZpbjsgbWFy T0srQbGmrQOxNta+PHRhYm xlIHdpZHRoPScxMDAlJyBz uFosKQ7aKv1eFOPpPCTagE xhcHNlOiBj w3xyPREiUOctDJ8wtFssE1 YjsCW6UXIsz4j4Hh83rCQ+ WDZbITY0zDezWYhtt100Ng Lhd8obZFJ7 jFBbXPmmIWB0T79pw3D6KJ RdZJRdZBC8sVC3kU9beXlp frgvR4AkhDAhYhE8GXO7oB InzJ8spFeb johtoA1mMxk+V96HTM5VHI JJZL6HQgj5L2MjUonstJE+ RZ53JRGzHS89rPMjzQBno3 cfnPb2XcFb OMTmEOC7xXkvHFjei4XgWN NyI79htZLlq3C2USYxkYrm dYXkHoZgmSR6yG1aSAbiuh cbw4mhxgbp Dqnxp5tojc41mR87A68vOJ nnGENaAMR1HFJjIYFocPrj ds2tyO7mHm0+IWeat7axk8 zspSj1OuOv VTWkrfZtvAtcPXL5y0CrVs 44U4BkbSdve7XvGzw4or80 sSDzc4W8rTS3NAvjZDVsoR 9aGPbjJsE2 PRQvAuXkvH02wIShDZqvMf 5tmJtkrMueGI8wPOQagelz GUPnpO7pRLAkcEZkzBrkOJ 4wNTBpbjtm l357CrUuEMB4REVlvTUeN4 SwrZ6oEeIkSRHjMNYaZ1Uf jXZsTRoiQ757ZEosAiH7WG FunuMcO9Rs VXLjdDwgXvD9h3M2Pl0Xl6 RojeelISU3QCnaLHT3RcX3 OoMhRuM1Y4AxJby9DTFjcP dlTK8sS6Xg SRMorpejozukaHX7OFWnOX NxcI08iNIpKYcgHb3gj9Q2 v128KVLtJOElzR02Yc5vrH ogMTBwdCBU sB0hixhjd2toeskqJtGtWL OaWNu0HTv6KGRfdUogNiOe VTJ1HgT7RVQ0gVZyqJ9sqZ xlvmwlvY8x Oyc+Q42uwV5nADY3AWP8xp sbIJOcvtBxJN28WJ15L9Ir PjwvdGFibGU+PGRpdiBzdH saEQ8lReQu a2elp6LhSCmnM4GeBKVaVN eaHks1OCQfOEA5zTF9gU9k YNNuXXrcu5F0cAG3F4Bqun Nnty2dz3nd UHRwRJtjO72nuKRvq3Y3KA MrtEB7PMKbdYhcCyEmiO65 Oyc+FGCsgPoye0MqPagap3 fmo1eaoVc1 VgMvXBQmsnUgnLzaVAI7w7 CiHb12S41vHCwoOTVvPNBg GKUnWTKitYatcy7whJ5bJg 8+PGNvbCB3 fEW7oC6bYTPkNdF2GJvaP3 70YaRriPKkEtekw3yrp4es oDo7JqEzXUSjzvKllVkdFH V6j3HcWr43 R27lSFnrDVFfEXMxRJLyNJ OzjIlkdk2xeV7gYl7+PC9j a2lvcb61xZ77yBU+PHRkIH Q0vBqlHEwk WIHumR0jXLrcItV8WNMlIq CzaA47yPZmDTloVf2pnXgd yYfiQP7sJXChppxaj687Vb Ipz0jnTMFk vKKnYKptIIX3K98iw4T8YB GuSCBaLAE0lEB3sU5asWdc bjogbGVmdDsgdmVydGljYW uaEUqhC146 IHRvcDsnPlBhdGllbnQgTm GsGHe6I9PwRgl0DOOpaAbd JN7ahMLgUEtpQh5upNzxpR zjAQ9cCPRk afnao729XoUri2laHKMtcF KpKYuxCJH0J57kc0Q7LILc DZWoQNL4zRK0uX0kwNbelu ogbGVmdDsg nrMvtKrmIRqbQJipE465SZ RvcDsnPkJpcnRoIERhdGU6 DT61BH28qJJdr1W5jBH4E9 BhZGRpbmct ktzzmAP3QIUePYWjkY34Ks 8tfRftUx9mBRZlSAD9NEUj eEUiC1NsaX8ySaHrOSSsDP TlT3RouREy NEdmX483EFfaQgN9YHSqne ZbN8FxORIkbVqhXdY2z5T6 Bi2EE0R3TQ81FG71mFTkr3 O2yAN8G9Ci MNWomzzikvtgaUD0XULfFF YzkJ15Lh4veEyzAg9dLTWw FYJ1VWDnjTKnM0YxhD7yUq AjMDAwMDAw I4IzfJCeHOvmV173NPshEt H8YVYugiIkI2LfYAYbcEfh SiU7j9F6On1WUVq2WA52HP 22lKEzr7Y0 mFZ8T9JeNDKkujpegggzdH X1PHNjSHKdsE46Tt2tkBgr Fy4bTPHdNHE1BXNzzMZaU4 NeiX1fWkNm HWQyHCAyR6DgwMEvLLjmY9 63VFssKtC6ALOyjyYmZ3Iz ZHIzyCcqWwB9h1S9Nf5OHG RcFT26CPD4 uIZ3DA06IA32Y4AsBanpjH FibGU+PHRhYmxlIHdpZHRo IIzcXEGwTcQfiDtqZW9wIr 9yZGVyLWNv eHfczTTqIlKnz8gbXZJtKY hwKI1piGvjG3MlxQK3TNPd p7j4Sw62H61yE7ZliRK+PG NvoJD3tWM9 aM6jZqJwSqZ3PXgyK500Ec AdtBGzBxnhi6hws7abuFd3 SyN5ZLSabwYjdNoaJOA0q9 JpFx73X61r IHdpZHRoPSIxNSUiIHZhbG chih7plA5iQo0+PGNvbCB3 iPS5vO9dMlDkYrP1PWnkU9 49InRvcCIv Bbvtd6ynq1jfaKa6WzEkCF NdxnGbmVeaPKI8e7NoSg36 J1FviYdlz4ElRpe4id04yQ Arh6N1oDS3 U6TnVYPopjxogDJwoQtjYF 5nIOVuvemnBFXacS4qSPCk Q0u5QbYjUzM5DTdoK9Xsho Y8ZMPdkIGa NLbtBIG7X79mc6X2XHKiSX NvXAG5eKX8vP2gxHsrpbav bGVmdDsgdmVydGljYWwtYW heB185XBDz bIxjMFXibK0yNCQrxTLzsC ivSO6lCNYmymszIjmLUg4J K4SGZQROBCMZCQL1S9WwUr q2MQWkiHdt DN5gpIBcFEhcZh5fvPdfiR wsLG2iOPZrdqolOBIzrB0z TVKwtIQmnLylIX8uBUWzdc foc213UmDy OQN7IYAynKRoZ5VshK7bAp XlBDYhVSGiR8CvzHKpTRgs O184PQxcVvJ2BHUlesNcY1 FsLWFsaWdu PfC3n6J5Md1hPR3iTJ6vDU s5BZ97FT96iIJzn8E6wRG6 N0ZdZWAdwiieyalsqYT9DI UqBJUyiR72 yXHyXAhjQe5pb6U2b261NV LiVHLxlV85Pw7dgZueSRRv xXBIzQ6cjddcx8xazmkoRh AwMDAwMDt0 JOe6EGBmuNwcSvSsNLG3Ey J9GZH8hXFqaZ8ocSxwfzam lP4qLsp+OSDjYQEyfaM5H2 VeQfx3WXHa rUchKS0hsTKuUEqxCt2dbQ lbaYtoBZ4vKRXjytndUCUl qQ3yKXTboWOfuPvbXL3rNN Gpcnvtc375 ZiSfSVV5PVVyrTXmK1GrfX 5qYxFoVYEaKQXrV5JrtRVd ZMvmZ127JTduWcN0QQAtyz SjX0YiJYMr iWngNjW7d3P5Zn7SBU4FTM D2G0NgMoe3EZZkdXsxGC2u xQSnIOszTc5loQwtaVrmYE 4wNTBpbjtw QVPtiI8wPENsfTTxsDinBT 4wNOMidompx221YxImDJB4 YXZbgDHnQ0NviZ9nPsEaLV VwNMQmJ5Dg zXUeAWglE076CZqiYvA5PA XsdmMqY2ZdAJFdeWqxGyV4 i7D0Ff1AwJLuLBEmTQ18SS luIGEgQmVk KY55TZ56G8CiDhebmSWbiM U+PHRhYmxlIHdpZHRoPScx BSLoBaHbzPlpRW1nLi3eBV VyLWNvbGxh bVKxIoJqa5voDUYhTBtnKW 4gmDddN2PpvQA2BULcs0a3 Ut95W83tO3UmpZP+PGNvbC X1hKG7rI6e TePxEkA9QFraI285BqVtkG ApCxwgk2evm2dvnAk0YdNs NIWqysOdiNskMIU0m1HhZt 01S13gVOsa ZHRoPSIyMCUiIHZhbGlnbj 0srB3mUe9+QJCbnWV1uKW5 fW0tDiVsNgF5SLdsZ716Sw RvcCIvPjwv W16vL4EvcHS+WGIiIec9IS AkzBznSJ8mfSQeZSqmFk4z SHE7MfIfEgMfDCegU0GwKO Rpbmctcmln aFV6CGXzJRUsdX13Td9dvS qdGw0xNNUzNOC5HJFgbAZx O0XmfK8rWzUmICTxBYWqS3 RleHQtYWxp V000NYmeQvN8ZQNselMlX7 XzOWGbrLdhIbS9v1J2Tl7Y jWpjfHFhUQ3xJmPmYHa1A8 ZnJxl1BNMs hLxuOU8coSArOSikEz5weU gudFmgPQ9nJLCjezubl594 LuBsh7azAOPmtZTdWSslAH H6A97ck9T0 SZWsCAFpCMO4nVE7qH9zdV lnbjogbGVmdDsgdmVydGlj MJmgLZfcC438BCFpbInyPt GGXik7Q6Eo Bze4LYDlkUlaNZ6ytITbFG xhCb3mzUkawPthWE0sLNJs vkeiv345IeOmw4kvAITyfI QgVGltZXM7 Q06zf0V0MZTlCVRkPVP7rJ V9yV3irFdmdcymkXGaaShg ysPqeJcnCMxaSIkpK931QO YpoEiuLm2W Hhu8V1ZlZhr9ULGonPgvBS 6qlUUkABreZp4vuQurtXkg CQ8mKSKhfodka463AtSfp7 xkIDEwcHQg EKpbRWX7O67fr3G9UVAzXV RoQBF0nAO2bT2ztIydcwlr bGVmdDsgdmVydGljYWwtYW fqS807AIZs cDsnPlBheWVyOjwvdGQ+PC 36rr67B9RjPrduBrw7GDVw IZN5tMC5kQ8dCWPlJDukg9 P9rJO4T0Ww cmR (more content not included)... [facility] Consultation/Specialist Note on 09-16-2020 Consultation/Specialist Note HOME SLEEP STUDY DATE OF STUDY: 09/10/2020 INDICATION FOR STUDY: Sleep apnea. Home sleep testing was performed without sleep staging but with continuous measurement of body position, oxygen saturations, heart rate, snore volumes, thoracic, abdominal movement and nasal flow. As sleep is not measured for dwq-ap-vpenmi home testing index time consists of time [...] is advised. Uriel Stone M.D. JOB #: [id number] CC: Tamara Calero DO [Electronically Signed on: 09/16/2020 13:28 EDT] Uriel Stone MD [Verified on: 09/16/2020 13:28 EDT] Uriel Stone MD [Transcribed on: 09/16/2020 11:10 EDT] [facility] Sleep Studyon 09-16-2020 Sleep Study [id number] [place] [address] Provider Orderson 09-09-2020 Provider Orders [id number] [place] [address] Provider Orderson 08-28-2020 Provider Orders [id number] [place] [address] Provider Orderson 08-27-2020 Provider Orders [id number] [place] [address] Flu A/B Ag Detectionon 03-11 Flu A/B Ag Detection Specimen Descriptio n .NASOPHARYNGEAL SWABSpecial Requests NOT REPORTEDDirect Exam PRESUMPTIVE NEGATIVE for Influenza A + B antigens. PCR testing to confirm this result is available upon request. Specimen will be saved in the laboratory for 7 days. Please call [phone] if PCR testing is indicated. Report Status FINAL 03/11/2018 [facility] Comment on above: Performed By: #### F LUAD ####[facility] [place] [address] Vital Signs Date Time Vital Sign Value Performing Clinician Facility 03-31-2024 12:25-0500 Body height 167.64 cm Tamara Calero DO Work Phone: [facility] 03-31-2024 12:25-0500 Body mass index (BMI) [Ratio] 39.7 kg/m2 Tamara Calero DO Work Phone: [facility] 03-31-2024 12:25-0500 Body temperature 98.6 [degF] Tamara Calero DO Work Phone: [facility] 03-31-2024 12:25-0500 Body weight 111.78 kg Tamara Calero DO Work Phone: [facility] 03-31-2024 12:25-0500 Diastolic blood pressure 69 mm[Hg] Tamara Calero DO Work Phone: [facility] 03-31-2024 12:25-0500 Heart rate 90 /min Tamara Calero DO Work Phone: [facility] 03-31-2024 12:25-0500 Respiratory rate 18 /min Tamara Calero DO Work Phone: [facility] 03-31-2024 12:25-0500 SaO2% (BldA) [Mass fraction] 93 % Tamara Calero DO Work Phone: [facility] 03-31-2024 12:25-0500 Systolic blood pressure 113 mm[Hg] Tamara Calero DO Work Phone: [facility] 02-12-2024 15:53-0500 Diastolic blood pressure 52 mm[Hg] Tamara Calero DO Work Phone: [facility] 02-12-2024 15:53-0500 Systolic blood pressure 83 mm[Hg] Tamara Calero DO Work Phone: [facility] 02-12-2024 15:53-0500 Body height 167.64 cm Tamara Calero DO Work Phone: [facility] 02-12-2024 15:53-0500 Body mass index (BMI) [Ratio] 39 kg/m2 Tamara Calero DO Work Phone: [facility] 02-12-2024 15:53-0500 Body temperature 97.3 [degF] Tamara Calero DO Work Phone: [facility] 02-12-2024 15:53-0500 Body weight 109.76 kg Tamara Calero DO Work Phone: [facility] 02-12-2024 15:53-0500 Heart rate 85 /min Tamara Calero DO Work Phone: [facility] 02-12-2024 15:53-0500 Respiratory rate 18 /min Tamara Calero DO Work Phone: [facility] 02-12-2024 15:53-0500 SaO2% (BldA) [Mass fraction] 96 % Tamara Calero DO Work Phone: [facility] 11-14-2023 07:30-0400 Body temperature 97.7 [degF] [facility] Josette Kelly Work Phone: [facility] 11-14-2023 07:30-0400 Diastolic blood pressure 85 mm[Hg] [facility] Josette Kelly Work Phone: [facility] 11-14-2023 07:30-0400 Heart rate 85 /min [facility] Josette Kelly Work Phone: [facility] 11-14-2023 07:30-0400 Respiratory rate 18 /min [facility] Josette Kelly Work Phone: [facility] 11-14-2023 07:30-0400 SaO2% (BldA) [Mass fraction] 95 % [facility] Josette Kelly Work Phone: [facility] 11-14-2023 07:30-0400 Systolic blood pressure 122 mm[Hg] [facility] Josette Kelly Work Phone: [facility] 11-13-2023 08:42-0400 Body weight 108.5 kg [facility] Josette Kelly Work Phone: [facility] 11-09-2023 13:07-0400 Body height 167.64 cm [facility] Josette Kelly Work Phone: [facility] 11-08-2023 23:36-0400 Body temperature 98.1 [degF] [facility] Josette Kelly Work Phone: [facility] 11-08-2023 23:36-0400 Diastolic blood pressure 78 mm[Hg] [facility] Josette Kelly Work Phone: [facility] 11-08-2023 23:36-0400 Heart rate 75 /min [facility] Josette Kelly Work Phone: [facility] 11-08-2023 23:36-0400 Respiratory rate 20 /min [facility] Josette Kelly Work Phone: [facility] 11-08-2023 23:36-0400 SaO2% (BldA) [Mass fraction] 98 % [facility] Josettecherri Talaveramer Work Phone: [facility] 11-08-2023 23:36-0400 Systolic blood pressure 148 mm[Hg] [facility] Josettecherri Talaveramer Work Phone: [facility] 11-08-2023 19:54-0400 Body height 167.64 cm [facility] Josettecherri Talaveramer Work Phone: [facility] 11-08-2023 19:54-0400 Body weight 108.5 kg [facility] Josettecherri Talaveramer Work Phone: [facility] 09-28-2023 13:36-0400 Body height 167.64 cm [facility] Josette Kelly Work Phone: [facility] 09-28-2023 13:36-0400 Body mass index (BMI) [Ratio] 36.8 kg/m2 [facility] Josette Kelly Work Phone: [facility] 09-28-2023 13:36-0400 Body temperature 98 [degF] [facility] Josette Kelly Work Phone: [facility] 09-28-2023 13:36-0400 Body weight 103.41 kg [facility] Josette Mandel Work Phone: [facility] 09-28-2023 13:36-0400 Diastolic blood pressure 67 mm[Hg] [facility] Josettecherri Talaveramer Work Phone: [facility] 09-28-2023 13:36-0400 Heart rate 104 /min [facility] Josettecherri Talaveramer Work Phone: [facility] 09-28-2023 13:36-0400 Respiratory rate 18 /min [facility] Josettecherri Talaveramer Work Phone: [facility] 09-28-2023 13:36-0400 SaO2% (BldA) [Mass fraction] 95 % [facility] Josette Talaveramer Work Phone: [facility] 09-28-2023 13:36-0400 Systolic blood pressure 107 mm[Hg] [facility] Josettecherri Talaveramer Work Phone: [facility] 08-31-2023 14:36-0400 Body height 167.64 cm [facility] Josette Mandel Work Phone: [facility] 08-31-2023 14:36-0400 Body mass index (BMI) [Ratio] 37.4 kg/m2 [facility] Josette Talaveramer Work Phone: [facility] 08-31-2023 14:36-0400 Body temperature 97.8 [degF] [facility] Josette Mandel Work Phone: [facility] 08-31-2023 14:36-0400 Body weight 105.23 kg [facility] Josettecherri Talaveramer Work Phone: [facility] 08-31-2023 14:36-0400 Diastolic blood pressure 62 mm[Hg] [facility] Josette Kelly Work Phone: [facility] 08-31-2023 14:36-0400 Heart rate 105 /min [facility] Josette Kelly Work Phone: [facility] 08-31-2023 14:36-0400 Respiratory rate 18 /min [facility] Josette Mandel Work Phone: [facility] 08-31-2023 14:36-0400 SaO2% (BldA) [Mass fraction] 95 % [facility] Josette Mandel Work Phone: [facility] 08-31-2023 14:36-0400 Systolic blood pressure 111 mm[Hg] [facility] Jsoette Mandel Work Phone: [facility] 08-28-2023 12:39-0400 Body height 167.64 cm DO Tamara Kelleycki Work Phone: [facility] 08-28-2023 12:39-0400 Body temperature 98.2 [degF] DO Tamara Whitei Work Phone: [facility] 08-28-2023 12:39-0400 Body weight 103.3 kg DO Tamara Kelleycki Work Phone: [facility] 08-28-2023 12:39-0400 Diastolic blood pressure 83 mm[Hg] DO Tamara Kelleycki Work Phone: [facility] 08-28-2023 12:39-0400 Heart rate 99 /min DO Tamara Kelleycki Work Phone: [facility] 08-28-2023 12:39-0400 Respiratory rate 20 /min DO Tamara Kelleycki Work Phone: [facility] 08-28-2023 12:39-0400 SaO2% (BldA) [Mass fraction] 97 % DO Tamaraar Kelleycki Work Phone: [facility] 08-28-2023 12:39-0400 Systolic blood pressure 126 mm[Hg] DO Tamara Brananthonycki Work Phone: [facility] 08-21-2023 17:24-0400 Body height 170.18 cm DO Tamara Brananthonycki Work Phone: [facility] 08-21-2023 17:24-0400 Body mass index (BMI) [Ratio] 36.1 kg/m2 DO Tamara Whitei Work Phone: [facility] 08-21-2023 17:24-0400 Body temperature 97.8 [degF] DO Tamara Kelleycki Work Phone: [facility] 08-21-2023 17:24-0400 Body weight 104.49 kg DO Tamaraar Kelleycki Work Phone: [facility] 08-21-2023 17:24-0400 Diastolic blood pressure 67 mm[Hg] DO Tamara Kelleycki Work Phone: [facility] 08-21-2023 17:24-0400 Heart rate 80 /min DO Tamara Kelleycki Work Phone: [facility] 08-21-2023 17:24-0400 Respiratory rate 18 /min DO Tamara Whitei Work Phone: [facility] 08-21-2023 17:24-0400 SaO2% (BldA) [Mass fraction] 94 % DO Tamara Kelleycki Work Phone: [facility] 08-21-2023 17:24-0400 Systolic blood pressure 101 mm[Hg] DO Tamara Kelleycki Work Phone: [facility] 04-24-2023 15:29-0500 Body height 170.18 cm DO Tamara Kelleycki Work Phone: [facility] 04-24-2023 15:29-0500 Body mass index (BMI) [Ratio] 36.1 kg/m2 DO Tamara Brananthonycki Work Phone: [facility] 04-24-2023 15:29-0500 Body weight 104.77 kg DO Tamara Kelleycki Work Phone: [facility] 04-24-2023 15:29-0500 Diastolic blood pressure 80 mm[Hg] DO Tamara Calero Work Phone: [facility] 04-24-2023 15:29-0500 Heart rate 84 /min DO Tamara Calero Work Phone: [facility] 04-24-2023 15:29-0500 Respiratory rate 14 /min DO Tamara Calero Work Phone: [facility] 04-24-2023 15:29-0500 SaO2% (BldA) [Mass fraction] 96 % DO Tamara Calero Work Phone: [facility] 04-24-2023 15:29-0500 Systolic blood pressure 123 mm[Hg] DO Tamara Calero Work Phone: [facility] 04-15-2023 10:20-0500 Body height 170.18 cm Priyanka Lemon Other [employer] Other 04-15-2023 10:20-0500 Body mass index (BMI) [Ratio] 36.33 kg/m2 Priyanka Lemon Other [employer] Other 04-15-2023 10:20-0500 Body temperature 98.5 [degF] Priyanka Lemon Other [employer] Other 04-15-2023 10:20-0500 Body weight 105.24 kg Priyanka Lemon Other [employer] Other 04-15-2023 10:20-0500 Diastolic blood pressure 102 mm[Hg] Priyanka Lemon Other [employer] Other 04-15-2023 10:20-0500 Respiratory rate 20 /min Priyanka Lemon Other [employer] Other 04-15-2023 10:20-0500 Systolic blood pressure 125 mm[Hg] Priyanka Lemon Other [employer] Other 02-24-2023 10:00-0500 Body height 170.18 cm Tamara Calero Other [facility] 02-24-2023 10:00-0500 Body mass index (BMI) [Ratio] 35.86 kg/m2 Tamara Calero Other [employer] Other 02-24-2023 10:00-0500 Body weight 103.87 kg Tamara Calero Other [facility] 02-24-2023 10:00-0500 Diastolic blood pressure 77 mm[Hg] Tamara Calero Other [facility] 02-24-2023 10:00-0500 Respiratory rate 20 /min Tamara Calero Other [employer] Other 02-24-2023 10:00-0500 Systolic blood pressure 113 mm[Hg] Tamara Calero Other [facility] 12-20-2022 12:15-0400 Body height 170.18 cm Priyanka Lemon Other [employer] Other 12-20-2022 12:15-0400 Body mass index (BMI) [Ratio] 35.36 kg/m2 Priyanka Lemon Other [employer] Other 12-20-2022 12:15-0400 Body temperature 99.1 [degF] Priyanka Lemon Other [employer] Other 12-20-2022 12:15-0400 Body weight 102.42 kg Priyanka Ion Other [employer] Other 12-20-2022 12:15-0400 Diastolic blood pressure 88 mm[Hg] Priyanka Lemon Other [employer] Other 12-20-2022 12:15-0400 Respiratory rate 18 /min Priyanka Lemon Other [employer] Other 12-20-2022 12:15-0400 SaO2% (BldA) [Mass fraction] 96 % Priyanka Lemon Other [employer] Other 12-20-2022 12:15-0400 Systolic blood pressure 133 mm[Hg] Priyanka Lemon Other [employer] Other 11-22-2022 14:30-0400 Body height 170.18 cm Tamara Kelleyjeannayesenia Other [employer] Other 11-22-2022 14:30-0400 Body mass index (BMI) [Ratio] 35.86 kg/m2 Tamara Pearsondalton Other [employer] Other 11-22-2022 14:30-0400 Body weight 103.87 kg Tamara Pearsonarielleyesenia Other [employer] Other 11-22-2022 14:30-0400 Diastolic blood pressure 74 mm[Hg] Tamara Pearsondalton Other [employer] Other 11-22-2022 14:30-0400 Respiratory rate 18 /min Tamara Pearsondalton Other [employer] Other 11-22-2022 14:30-0400 SaO2% (BldA) [Mass fraction] 95 % Tamara Calero Other [employer] Other 11-22-2022 14:30-0400 Systolic blood pressure 114 mm[Hg] Tamara Calero Other [employer] Other 08-24-2022 14:00-0400 Body height 170.18 cm Tamara Calero Other [employer] Other 08-24-2022 14:00-0400 Body mass index (BMI) [Ratio] 35.39 kg/m2 Tamara Calero Other [employer] Other 08-24-2022 14:00-0400 Body temperature 99.2 [degF] Tamara Calero Other [employer] Other 08-24-2022 14:00-0400 Body weight 102.51 kg Tamara Calero Other [employer] Other 08-24-2022 14:00-0400 Diastolic blood pressure 74 mm[Hg] Tamara Kelleyjeannayesenia Other [employer] Other 08-24-2022 14:00-0400 Respiratory rate 20 /min Tamara Calero Other [employer] Other 08-24-2022 14:00-0400 SaO2% (BldA) [Mass fraction] 94 % Tamara Whiteyesenia Other [employer] Other 08-24-2022 14:00-0400 Systolic blood pressure 114 mm[Hg] Tamaraar Calero Other [email or web address] [facility] Other 05-24-2022 23:57-0400 Diastolic blood pressure 62 mm[Hg] DO Tamara Whitei Work Phone: [facility] 05-24-2022 23:57-0400 Heart rate 94 /min DO Tamara Calero Work Phone: [facility] 05-24-2022 23:57-0400 Respiratory rate 16 /min DO Tamara Calero Work Phone: [facility] 05-24-2022 23:57-0400 SaO2% (BldA) [Mass fraction] 97 % DO Tamara Calero Work Phone: [facility] 05-24-2022 23:57-0400 Systolic blood pressure 122 mm[Hg] DO Tamara Calero Work Phone: [facility] 05-24-2022 20:49-0400 Body height 167.64 cm DO Tamara Calero Work Phone: [facility] 05-24-2022 20:49-0400 Body temperature 98.8 [degF] DO Tamara Calero Work Phone: [facility] 05-24-2022 20:49-0400 Body weight 98.2 kg DO Tamara Calero Work Phone: [facility] 05-18-2022 17:00-0400 Body height 170.18 cm Tamara Calero Other [email or web address] [facility] Other 05-18-2022 17:00-0400 Body mass index (BMI) [Ratio] 33.67 kg/m2 Tamara Calero Other [employer] Other 05-18-2022 17:00-0400 Body weight 97.52 kg Tamara Calero Other [facility] [employer] Other 05-18-2022 17:00-0400 Diastolic blood pressure 82 mm[Hg] Tamara Calero Other [employer] Other 05-18-2022 17:00-0400 Respiratory rate 20 /min Tamara Calero Other [email or web address] [facility] Other 05-18-2022 17:00-0400 SaO2% (BldA) [Mass fraction] 97 % Tamara Calero Other [email or web address] [facility] Other 05-18-2022 17:00-0400 Systolic blood pressure 136 mm[Hg] Tamara Calero Other [facility] [employer] Other 05-15-2022 11:38-0400 Body temperature 97.6 [degF] DO Tamara Calero Work Phone: [facility] 05-15-2022 11:38-0400 Diastolic blood pressure 88 mm[Hg] DO Tamara Calero Work Phone: [facility] 05-15-2022 11:38-0400 Heart rate 73 /min DO Tamara Calero Work Phone: [facility] 05-15-2022 11:38-0400 SaO2% (BldA) [Mass fraction] 96 % DO Tamara Calero Work Phone: [facility] 05-15-2022 11:38-0400 Systolic blood pressure 133 mm[Hg] DO Tamara Calero Work Phone: [facility] 05-15-2022 07:46-0400 Respiratory rate 16 /min DO Tamara Calero Work Phone: [facility] 05-11-2022 14:05-0500 Body height 167.64 cm DO Tamara Brananthonycki Work Phone: [facility] 05-11-2022 00:58-0500 Body weight 94.34 kg DO Tamara Brananthonycki Work Phone: [facility] 05-11-2022 00:00-0500 Diastolic blood pressure 82 mm[Hg] DO Tamara Brananthonycki Work Phone: [facility] 05-11-2022 00:00-0500 Heart rate 74 /min DO Tamara Brananthonycki Work Phone: [facility] 05-11-2022 00:00-0500 Respiratory rate 18 /min DO Tamara Brananthonycki Work Phone: [facility] 05-11-2022 00:00-0500 SaO2% (BldA) [Mass fraction] 96 % DO Tamara Kelleycki Work Phone: [facility] 05-11-2022 00:00-0500 Systolic blood pressure 170 mm[Hg] DO Tamara Brananthonycki Work Phone: [facility] 05-10-2022 21:11-0500 Body height 167.64 cm DO Tamara Brananthonycki Work Phone: [facility] 05-10-2022 21:11-0500 Body temperature 98.5 [degF] DO Tamara Brananthonycki Work Phone: [facility] 05-10-2022 21:11-0500 Body weight 94.4 kg DO Tamara Brananthonycki Work Phone: [facility] 08-20-2021 12:30-0400 Body height 170.18 cm Tamara Kelleycki Other [employer] Other 08-20-2021 12:30-0400 Body mass index (BMI) [Ratio] 30.07 kg/m2 Tamara Calero Other [employer] Other 08-20-2021 12:30-0400 Body temperature 98.2 [degF] Tamara Calero Other [employer] Other 08-20-2021 12:30-0400 Body weight 87.09 kg Tamara Calero Other [employer] Other 08-20-2021 12:30-0400 Diastolic blood pressure 72 mm[Hg] Tamara Calero Other [employer] Other 08-20-2021 12:30-0400 Respiratory rate 18 /min Tamara Calero Other [employer] Other 08-20-2021 12:30-0400 SaO2% (BldA) [Mass fraction] 99 % Tamara Calero Other [employer] Other 08-20-2021 12:30-0400 Systolic blood pressure 118 mm[Hg] Tamara Calero Other [employer] Other 08-10-2021 14:48-0400 Body height 167.[address] [facility] 08-10-2021 14:48-0400 Body mass index (BMI) [Ratio] 32.77 [facility] 14:48-0400 Body temperature 97.7 [degF] [facility] 08-10-2021 14:48-0400 Body weight 92.[address] [facility] 08-10-2021 14:48-0400 Diastolic blood pressure 62 mm[Hg] [facility] 06-07-2022 14:48-0400 Heart rate 81 /min [facility] [...] 98.49 [degF] Dennis Sarmiento MD Work Phone: [facility] 08-04-2021 05:03-0400 Diastolic blood pressure 48 mm[Hg] Dennis Sarmiento MD Work Phone: [facility] 08-04-2021 05:03-0400 Heart rate 70 /min Dennis Sarmiento MD Work Phone: [facility] 08-04-2021 05:03-0400 Respiratory rate 16 /min Dennis Sarmiento MD Work Phone: [facility] 08-04-2021 05:03-0400 SaO2% (BldA) [Mass fraction] 97 % Dennis Sarmiento MD Work Phone: [facility] 08-04-2021 05:03-0400 Systolic blood pressure 110 mm[Hg] Dennis Sarmiento MD Work Phone: [facility] 07-31-2021 02:14-0400 Body height 177.8 cm Dennis Sarmiento MD Work Phone: [facility] 07-31-2021 02:14-0400 Body mass index (BMI) [Ratio] 30.42 kg/m2 Dennis Sarmiento MD Work Phone: [facility] 07-31-2021 02:14-0400 Body weight 96.16 kg Dennis Sarmiento MD Work Phone: [facility] 07-31-2021 01:15-0400 SaO2% (BldA) [Mass fraction] 97.8 % Dennis Sarmiento MD Work Phone: [employer] 07-30-2021 20:20-0400 SaO2% (BldA) [Mass fraction] 98.6 % Dennis Sarmiento MD Work Phone: [facility] 07-30-2021 17:53-0400 SaO2% (BldA) [Mass fraction] 98.5 % Dennis Sarmiento MD Work Phone: [facility] 07-30-2021 17:00-0400 SaO2% (BldA) [Mass fraction] 98.1 % Dennis Sarmiento MD Work Phone: [facility] 07-15-2021 12:58-0400 Body height 179.1 cm Marcella Luevano APRN-[employer] Work Phone: [facility] 07-15-2021 12:58-0400 Body mass index (BMI) [Ratio] 29.99 kg/m2 Marcella Luevano APRN-[employer] Work Phone: [facility] 07-15-2021 12:58-0400 Body temperature 97 [degF] Marcella Luevano APRN-OSCAR Work Phone: [facility] 07-15-2021 12:58-0400 Body weight 96.16 kg Marcella Luevano APRN-OSCAR Work Phone: [facility] 07-15-2021 12:58-0400 Diastolic blood pressure 62 mm[Hg] Marcella Luevano APRN-[employer] Work Phone: [facility] 07-15-2021 12:58-0400 Heart rate 75 /min Marcella Luevano APRN-[employer] Work Phone: [facility] 07-15-2021 12:58-0400 Respiratory rate 16 /min Marcella Luevano APRN-[employer] Work Phone: [facility] 07-15-2021 12:58-0400 SaO2% (BldA) [Mass fraction] 96 % Marcella Belcastro SOLAR PANEL TECHNICIAN-[employer] Work Phone: [facility] 07-15-2021 12:58-0400 Systolic blood pressure 117 mm[Hg] Marcella Luevano SOLAR PANEL TECHNICIAN[employer] Work Phone: [facility] 06-16-2021 11:35-0400 Diastolic blood pressure 77 mm[Hg] Leobardo Barry MD Work Phone: [facility] 06-16-2021 11:35-0400 Heart rate 73 /min Leobardo Barry MD Work Phone: [facility] 06-16-2021 11:35-0400 Respiratory rate 12 /min Leobardo Barry MD Work Phone: [facility] 06-16-2021 11:35-0400 SaO2% (BldA) [Mass fraction] 99 % Leobardo Barry MD Work Phone: [facility] 06-16-2021 11:35-0400 Systolic blood pressure 117 mm[Hg] Leobardo Barry MD Work Phone: [facility] 06-16-2021 11:05-0400 Body temperature 97.2 [degF] Leobardo Barry MD Work Phone: [facility] 06-11-2021 14:04-0400 Body height 168.9 cm Leigh Ann Teagan SOLAR PANEL TECHNICIAN[employer] Work Phone: [facility] 06-11-2021 14:04-0400 Body mass index (BMI) [Ratio] 33.39 kg/m2 Leigh Ann Teagan SOLAR PANEL TECHNICIAN[employer] Work Phone: [facility] 06-11-2021 14:04-0400 Body weight 95.25 kg Leigh Ann Teagan SOLAR PANEL TECHNICIAN[employer] Work Phone: [facility] 06-07-2021 11:45-0400 Body height 170.18 cm Tamara Calero Other [employer] Other 06-07-2021 11:45-0400 Body mass index (BMI) [Ratio] 32.57 kg/m2 Tamara Calero Other [employer] Other 06-07-2021 11:45-0400 Body weight 94.35 kg Tamara Calero Other [employer] Other 06-07-2021 11:45-0400 Diastolic blood pressure 69 mm[Hg] Tamara Calero Other [employer] Other 06-07-2021 11:45-0400 Respiratory rate 18 /min Tamara Calero Other [employer] Other 06-07-2021 11:45-0400 SaO2% (BldA) [Mass fraction] 98 % Tamara Calero Other [employer] Other 06-07-2021 11:45-0400 Systolic blood pressure 113 mm[Hg] Tamara Calero Other [employer] Other Encounters Encounter Date Encounter Type Care Provider Facility Start: 05-15-2024 ambulatory Tamara Abdias Facil ity:[facility] Start: 03-31-2024 End: 03-31-2024 ambulatory Tamara Branarielleyesenia DO Work Phone: [facility] Work Phone: Start: 03-31-2024 End: 03-31-2024 Patient encounter procedure Tamara Abdias DO Work Phone: [facility] Work Phone: Start: 03-15-2024 End: 03-15-2024 [facility] Start: 03-14-2024 Registered Recurring Tamara peoples DO Work Phone: [facility] Start: 02-12-2024 End: 02-12-2024 Patient encounter procedure Tamara Calero DO Work Phone: [facility] Work Phone: Start: 11-09-2023 Non-patient / Non-visit [facility] P jeni Kelly Work Phone: [facility] Work Phone: Start: 11-08-2023 End: 11-14-2023 Evaluation and management of inpatient [facility] RIDER-C Josette Kelly Work Phone: [address] Work Phone: Start: 11-08-2023 Registered Recurring [facility]-C Anika la Kelly Work Phone: [facility] Start: 10-25-2023 Registered Recurring [facility] RIDER-C Anika la Kelly Work Phone: [facility] Start: 09-28-2023 End: 09-28-2023 ambulatory [facility]C Josette Racheal Kelly Work Phone: [facility] Work Phone: Start: 09-28-2023 End: 09-28-2023 Patient encounter procedure [facility] RIDER-C Josette Kelly Work Phone: [facility] Work Phone: Start: 09-27-2023 Registered Recurring [facility] RIDER-C Anika la Kelly Work Phone: [facility] [employer] Start: 08-31-2023 End: 08-31-2023 ambulatory [facility]ER-C Josette Racheal Kelly Work Phone: [facility] Work Phone: Start: 08-31-2023 End: 08-31-2023 Patient encounter procedure [facility] R[facility]ER-C Josette Kelly Work Phone: [facility] Work Phone: Start: 08-31-2023 End: 08-31-2023 ambulatory [facility] Start: 08-30-2023 Registered Recurring DUKEY RIDERLatrell Montana Work Phone: [facility] Credible Start: 08-28-2023 End: 08-28-2023 Emergency department patient visit DO Tamara [facility]: Start: 08-21-2023 End: 08-21-2023 ambulatory DO Tamara Calero Work Phone: [facility] Work Phone: Start: 08-21-2023 End: 08-21-2023 Patient encounter procedure DO Tamara Calero Work Phone: [facility] Work Phone: Start: 08-03-2023 Registered Recurring DO Stanford Calero Work Phone: [facility]ible Start: 07-03-2023 End: 07-03-2023 ambulatory [facility] Start: 07-03-2023 Encounter for gynecological examination (general) (routine) without abnormal findings [facility] Start: 06-28-2023 End: 06-28-2023 ambulatory [facility] Start: 05-18-2023 End: 05-18-2023 ambulatory [facility] Start: 04-24-2023 End: 04-24-2023 ambulatory DO Tamara Calero Work Phone: [facility] Work Phone: Start: 04-24-2023 End: 04-24-2023 Patient encounter procedure DO Tamara Calero Work Phone: [facility] Work Phone: Start: 04-15-2023 End: 04-15-2023 ambulatory Priyanka Lemon Other [employer] Other Start: 04-15-2023 Office outpatient vi sit 15 minutes Priyanka Lemon [facility] Start: 02-24-2023 End: 02-24-2023 ambulatory Tamara Abdias Other [employer] Other Start: 02-24-2023 Office outpatient vi sit 25 minutes Tamara Calero [facility] Start: 02-24-2023 End: 02-24-2023 Patient encounter procedure DO Tamara Abdias Work Phone: [facility] Work Phone: Start: 02-01-2023 Registered Recurring DO Stanford rai Christopheryesenia Work Phone: [facility]- [employer]ible Start: 12-20-2022 End: 12-20-2022 ambulatory Priyanka Lemon Other [employer] Other Start: 12-20-2022 Office outpatient vi sit 25 minutes Priyanka Lemon [facility] Start: 12-05-2022 End: 12-05-2022 ambulatory Tamara Abdias Other [employer] Other Start: 12-05-2022 Telephone encounter Tamara White i [employer] Start: 11-22-2022 End: 11-22-2022 ambulatory Tamara Abdias Other [employer] Other Start: 11-22-2022 Office outpatient vi sit 25 minutes Tamara Calero [facility] Start: 11-14-2022 End: 11-14-2022 ambulatory Tamara Calero Other [employer] Other Start: 11-14-2022 Telephone encounter Tamara White i [facility] Start: 11-02-2022 End: 11-02-2022 ambulatory Tamara Calero Other [employer] Other Start: 11-02-2022 Telephone encounter Tamara White i [facility] Start: 08-24-2022 End: 08-24-2022 ambulatory Tamara Calero Other [employer] Other Start: 08-24-2022 Encounter for other specified special examinations Tamara Calero [facility] Start: 08-24-2022 Periodic preventive med est patient 40-64yrs Tamara Calero [facility] Start: 08-02-2022 Letter encounter Dennis godoy MD Work Phone: [facility] Start: 05-30-2022 End: 05-30-2022 ambulatory Tamara Calero Other [employer] Other Start: 05-30-2022 Telephone encounter Tamara White i [facility] Start: 05-24-2022 Evaluation and management of inpatient DO Tamara Calero Work Phone: [facility] Work Phone: Start: 05-24-2022 End: 05-24-2022 ambulatory Tamara Calero Other [employer] Other Start: 05-24-2022 Telephone encounter Tamara White i [facility] Start: 05-18-2022 End: 05-18-2022 ambulatory Tamara Calero Other [employer] Other Start: 05-18-2022 Office outpatient vi sit 25 minutes Tamara Calero [facility] Start: 05-11-2022 End: 05-11-2022 ambulatory Tamara Calero Other [employer] Other Start: 05-11-2022 Telephone encounter Tamara White i [facility] Start: 05-10-2022 End: 05-15-2022 Evaluation and management of inpatient DO Tamara Calero Work Phone: [facility] Work Phone: Start: 05-05-2022 Letter encounter Dennis godoy MD Work Phone: [facility] Start: 03-15-2022 End: 03-15-2022 ambulatory Tamara Calero Other [employer] Other Start: 03-15-2022 Office outpatient vi sit 15 minutes Tamara Calero [facility] Start: 03-13-2022 End: 03-13-[address] DOCTOR SAUNDERS Facility: Start: 02-14-2022 End: 02-14-2022 Telemedicine consultation with patient Dennis Sarmiento MD Work Phone: [facility] Oncology Surgical Comment on above: NO SHOW (Primary Dx) Start: 02-14-2022 ambulatory DENNIS SHEA Facil ity:[facility] Start: 02-01-2022 Letter encounter Dennis godoy MD Work Phone: [facility] Start: 11-15-2021 End: 11-15-2021 ambulatory Tamara Calero Other [employer] Other Start: 11-15-2021 Telephone encounter Tamara White i [facility] Start: 09-02-2021 ambulatory Nicole Garcia RN [facility] Oncology Surgical Start: 09-02-2021 Documentation procedure Nicole byers RN [facility] Oncology Surgical Start: 08-24-2021 End: 08-25-2021 ambulatory SELF PATIENT Facility:[facility] Start: 08-20-2021 End: 08-20-2021 ambulatory Tamara Calero Other [employer] Other Start: 08-20-2021 Encounter for genera l adult medical examination without abnormal findings Tamara Calero [facility] Start: 08-20-2021 Periodic preventive med est patient 40-64yrs Tamara Calero [facility] Start: 08-16-2021 End: 08-16-2021 Telemedicine consultation with patient Dennis Sarmiento MD Work Phone: [facility] Oncology Surgical Comment on above: Liver cyst (Primary Dx) Start: 08-16-[address] [facility] Facility: [facility] Start: 08-10-2021 End: 08-10-2021 Office outpatient visit 25 minutes [facility] Resident [facility] Surgery General Comment on above: Postoperative follow -up (Primary Dx); Body mass index (BMI) 32.0-32.9, adult Start: 08-02-2021 Letter encounter Debo garza SOLAR PANEL TECHNICIAN-MAILROOM PERSONNEL Work Phone: [facility] Start: 08-01-2021 Letter encounter Debo garza SOLAR PANEL TECHNICIAN-MAILROOM PERSONNEL Work Phone: [facility] Surgery General Start: 07-30-2021 End: 07-30-2021 Subsequent hospital visit by physician Dennis Sarmiento MD Work Phone: [facility] Radiology Comment on above: Arrived Start: 07-30-2021 Letter encounter Debo garza SOLAR PANEL TECHNICIAN-MAILROOM PERSONNEL Work Phone: [facility] Radiology Start: 07-30-2021 End: 08-04-2021 Evaluation and management of inpatient Dennis Sarmiento MD Work Phone: Inpatient 8A Comment on above: Liver cyst (Primary Dx); Cyst of gallbladder; Postoperative pain Start: 07-16-2021 Telephone encounter Leandra hernandez [facility] Work Phone: [facility] Comment on above: Anemia; Consult with specialist Start: 07-15-2021 End: 07-16-2021 Office outpatient new 45 minutes Marcella Luevano SOLAR PANEL TECHNICIAN-MAILROOM PERSONNEL Work Phone: [facility] Pre-Surgical Evaluation Comment on above: Preop testing (Prima ry Dx); Iron deficiency anemia, unspecified iron deficiency anemia type; Body mass index (BMI) 29.0-29.9, adult Start: 07-15-2021 End: 07-16-2021 Patient encounter status Marcella Luevano SOLAR PANEL TECHNICIAN-MAILROOM PERSONNEL Work Phone: [facility] Pre-Surgical Evaluation Start: 07-07-2021 Letter encounter Dennis nuñez MD Work Phone: [facility] Surgery General Start: 07-06-2021 [facility]mission [facility] Dennis Sarmiento MD Work Phone: [facility] Surgery General Start: 07-02-2021 End: 07-02-2021 ambulatory Tamara Calero Other [employer] Other Start: 07-02-2021 Telephone encounter Tamara White i [facility] Start: 06-16-2021 End: 06-16-2021 Subsequent hospital visit by physician Leobardo Barry MD Work Phone: [facility] Comment on above: Bile duct obstructio n; 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 Start: 06-14-2021 End: 06-15-[address] DOCTOR ELKINS Facility: Start: 06-11-2021 End: 06-11-2021 Telephone encounter Leigh Ann Candelaria SOLAR PANEL TECHNICIAN-MAILROOM PERSONNEL Work Phone: [facility] Pre Surgical Evaluation Comment on above: Arrived Start: 06-07-2021 End: 06-07-2021 ambulatory Tamara Abdias Other [employer] Other Start: 06-07-2021 Office outpatient vi sit 25 minutes Tamara Calero [facility] [place] Start: 04-16-2021 End: 04-22-2021 Evaluation and management of inpatient DR DOCTOR ELKINS Facility:[facility]1 Start: 03-19-2021 End: 03-19-[address] DOCTOR ELKINS Facility:[facility] Start: 03-11-2018 End: 03-11-2018 Emergency department patient visit DIPESH PETAR [facility] Procedures Date Procedure Procedure Detail Performing Clinician Start: 11-08-2023 Urine culture DUKEY RIDER-Tera Mandel Work Phone: Start: 05-24-2022 SARS Antigen [...] Work Phone: Start: 07-30-2021 FFP Mahamedilya Bermudez SOLAR PANEL TECHNICIAN-MANAGER UTILIZATION MANAGEMENT Work Phone: Start: 07-30-2021 PLASMA STATUS Mahamedilya Bermudez SOLAR PANEL TECHNICIAN-MANAGER UTILIZATION MANAGEMENT Work Phone: Start: 07-30-2021 RED BLOOD CELL COMPONENT Adrian lopez SOLAR PANEL TECHNICIAN-MANAGER UTILIZATION MANAGEMENT Work Phone: Start: 07-30-2021 RED BLOOD CELL UNIT STATUS Adrian calle SOLAR PANEL TECHNICIAN-MANAGER UTILIZATION MANAGEMENT Work Phone: Start: 07-30-2021 End: 07-30-2021 Assay of lactate Adrian Bermudez SOLAR PANEL TECHNICIAN-MANAGER UTILIZATION MANAGEMENT Work Phone: Start: 07-30-2021 End: 07-30-2021 Blood gases any combination ph pco2 po2 co2 hco3 Adrian Bermudez SOLAR PANEL TECHNICIAN-MANAGER UTILIZATION MANAGEMENT Work Phone: Start: 07-30-2021 End: 07-30-2021 Carboxyhemoglobin measurement Felix Bermudez SOLAR PANEL TECHNICIAN-MANAGER UTILIZATION MANAGEMENT Work Phone: Start: 07-30-2021 End: 07-30-2021 Transfusion of packed red blood cells Adrian Bermudez SOLAR PANEL TECHNICIAN-MANAGER UTILIZATION MANAGEMENT Work Phone: Start: 07-30-2021 Cul bact xcpt urine blood/stool aerobic isol Dennis Sarmiento MD Work Phone: Start: 07-30-2021 Cytology examination - general Dennis Sarmiento MD Work Phone: Start: 07-30-2021 RBC leukocytes reduced Adrian byers SOLAR PANEL TECHNICIAN-MANAGER UTILIZATION MANAGEMENT Work Phone: Start: 07-30-2021 RED BLOOD CELL UNIT STATUS Adrian calle [facility] Work Phone: Start: 07-30-2021 End: 07-30-2021 EXPLORATION, COMMON BILE DUCT Dennis Waldron MD Work Phone: Start: 07-30-2021 End: 07-30-2021 LAPAROSCOPY, DIAGNOSTIC Dennis godoy MD Work Phone: Start: 07-30-2021 Urine test visual color cmprsn meths Dennis Sarmiento MD Work Phone: Start: 07-30-2021 Blood typing, ABO, Rho(D) and RBC antibody screening Marcella Luevano SOLAR PANEL TECHNICIAN-MAILROOM PERSONNEL Work Phone: Start: 07-15-2021 Assay of ferritin Marcella Luevano SOLAR PANEL TECHNICIAN- MAILROOM PERSONNEL Work Phone: Start: 06-16-2021 Ercp dx collection [...] Activity Detail Author Start: 03-22-2029 [facility] Start: 01-29-2028 Shingles (RZV) Vaccine (1 of 2) Shingles (RZV) Vaccine (1 of 2) [facility] Start: 11-14-2023 [facility] Start: 11-09-2023 Hospital admission [facility] Start: 11-08-2023 [facility] Start: 11-08-2023 Bacteria identified in Urine by Culture [facility] Start: 08-03-2022 Basic metabolic 2000 panel - Serum or Plasma Basic Metabolic Panel [facility] Start: 08-02-2022 Basic metabolic 2000 panel - Serum or Plasma Basic Met[facility] Start: 08-01-2022 Basic metabolic 2000 panel - Serum or Plasma Basic Metabolic Panel [facility] Start: 07-31-2022 Basic metabolic 2000 panel - Serum or Plasma Basic Metabolic Panel [facility] Start: 05-25-2022 End: 05-25-2022 [facility] Start: 05-25-2022 [facility] admission [facility] Start: 05-15-2022 [facility] Start: 05-11-2022 [facility] Start: 05-11-2022 Hospital admission [facility] Start: 05-11-2022 [facility] Start: 05-10-2022 Bacteria identified in Urine by Culture Urine Culture [facility] Start: 04-28-2022 Basic metabolic 2000 panel - Serum or Plasma Basic Metabolic Panel [facility] Start: 04-23-2022 Hemoglobin A1c measurement Hemoglobin A1C [facility] Start: 02-14-2022 End: 02-14-2022 Telemedicine consultation with patient 02/14/2022 Telemedicine Oncology Surgery Dennis Sarmiento MD [address] [place] [address] [facility] Oncology Surgical Start: 12-04-2021 Influenza vaccination Influenza Vaccine (#1) [facility] Start: 08-24-2021 End: 08-24-2021 Patient encounter procedure 08/24/2021 Office Visit General Surgery [facility] Surgery General Start: 08-16-2021 End: 08-16-2021 Evaluation and management of inpatient 08/16/2021 Telemedicine Oncology Surgery Dennis Sarmiento MD [address] [place] [id number] [facility] Oncology Surgical Start: 08-16-2021 End: 08-16-2021 Telemedicine consultation with patient 08/16/2021 Telemedicine Oncology Surgery Dennis Sarmiento MD [address] [place] [id number] [facility] Oncology Surgical Start: 08-10-2021 End: 08-10-2021 Patient encounter procedure 08/10/2021 Office Visit General Surgery [facility] Surgery General Start: 07-30-2021 End: 07-30-2021 Admission to same day surgery center 07/30/2021 Surgery General Surgery Dennis Sarmiento MD [address] [place] [id number] HEPATECTOMY, PARTIAL, LOBECTOMY [facility] Main OR Comment on above: HEPATECTOMY, PARTIAL, [...] Hospital Encounter General Surgery Dennis Sarmiento MD [address] [place] [id number] [facility] Main OR Start: 07-15-2021 End: 07-15-2021 Patient encounter procedure 07/15/2021 Office Visit Presurgical Evaluation Claudia Luevanoah, SOLAR PANEL TECHNICIAN-MAILROOM PERSONNEL [address] [place] [address] [place] [address] [facility] Pre-Surgical Evaluation Start: 07-07-2021 End: 07-07-2021 Evaluation and management of inpatient 07/07/2021 Office Visit Internal Medicine Jennifer Khan MD [address] [place] [id number] [facility] Start: 06-22-2021 End: 06-22-2021 Patient encounter procedure 06/22/2021 Office Visit General Surgery Dennis Sarmiento MD [address] [place] [id number] [facility] Surgery General Start: 06-16-2021 End: 06-16-2021 Admission to same day surgery center 06/16/2021 Surgery Gastroenterology Leobardo Barry MD [address] [place] [address] [place] [address] ERCP, GENERAL ANESTHESIA [facility] Comment on above: ERCP, GENERAL ANESTHESIA Start: 06-16-2021 End: 06-16-2021 ERCP, GENERAL ANESTHESIA [facility] Start: 06-16-2021 Subsequent hospital visit by physician 06/16/2021 Hospital Encounter Gastroenterology Leobardo Barry MD [address] [place] [address] [place] [address] [facility] Start: 2018 Screening for malignant neoplasm of breast Mammography [facility] Start: 1999 Screening for malignant neoplasm of cervix Pap Smear [facility] Start: 01-29-1996 Hepatitis C screening Hepatitis C Antibody [facility] Start: 01-29-1984 Pneumococcal vaccination [facility] Start: 1983 COVID-19 Vaccine (#1) COVID-19 Vaccine (#1) [facility] Start: 1983 COVID-19 Vaccine (1) COVID-19 Vaccine (1) [facility] Start: 1978 COVID-19 Vaccine (#1) COVID-19 Vaccine (#1) [facility] Calculated LDL cholesterol level [facility] Cholesterol.total/Ch o lesterol in HDL [Mass Ratio] in Serum or Plasma [facility] Culture bacterial an y source anaerobic iso&id ANAEROBIC CULTURE, MISC Microbiology Routine Cyst of gallbladder Liver cyst 07/30[facility]2021 4:19 [facility] tubercle/oth acid-fast bacilli any isol AFB CULTURE/SMEAR Microbiology Routine Cyst of gallbladder Liver cyst 07/30/2021 4:19 PM EDT [facility] ERCP, GENERAL ANESTHESIA ERCP, GENERAL ANESTHESIA Cyst [...] cyst PERIOPERATIVE SERVICES Patient Education [facility] Work Phone: Patient referral [facility] Work Phone: End: 06-16-2021 Surgical pathology procedure SURGICAL GI ANATOMIC PATHOLOGY Anatomic Pathology Routine One time for 1 Occurrences starting 06/16/2021 until 06/16/2021 [employer] Work Phone: Comment on above: One time for 1 Occurrences starting 06/04 until 06/16/2021 Surgical pathology procedure [employer] Work Phone: Comment on above: Release Upon Ordering for 1 Occurrences starting 07/30/2021, 1 completed VLDL cholesterol measurement [facility] Immunizations Immunization Date Immunization Notes Care Provider Zenaida recio 04-23-2021 Hemoglobin A1C Leigh Ann romo SOLAR PANEL TECHNICIAN-[facility] Work Phone: [facility] 03-22-2019 tetanus toxoid, redu ramona diphtheria toxoid, and acellular pertussis vaccine, adsorbed Leigh Ann Candelaria SOLAR PANEL TECHNICIAN-[facility] Work Phone: [facility] 01-29-2019 influenza, injectabl e, quadrivalent, preservative free Leigh Ann Candelaria SOLAR PANEL TECHNICIAN-[facility] Work Phone: [facility] 01-29-2019 influenza virus vacc ine, unspecified formulation Dennis Sarmiento MD Work Phone: [facility] Payers Date Payer Category Payer Self-pay [id number] 2022 Medicaid [id number] 2020 Medicaid [place] [employer] [id number] 2020-Present [phone] [address] [place] [address] Medicaid HMO [id number] 2016 Unknown [id number] 1978 Unknown [id number] 1978 Unknown [id number] [id number] 1978 Unknown [id number] [id number] 1978 Unknown [id number] [id number] 1978 Unknown [id number] [id number] 1978 Unknown [id number] [id number] 1978 Unknown [id number] [id number] 1978 Unknown [id number] [id number] 1978 Unknown [id number] 2.16.840.1.999777.3.579.2.1286 1978 Unknown [id number] [id number] 1978 Unknown [id number] [id number] 1959 Unknown [id number] [id number] Unknown [id number] [id number] Unknown [id number] [id number] Unknown [id number] Social History Date Type Detail Facility Start: 04-02-2021 End: 06-11-2021 Tobacco smoking status LAIS Smokes tobacco daily [facility] History of tobacco [...] [facility] Start: 03-06-1994 Sex Assigned At [employer] Other Start: 05-10-2022 End: 11-09-2023 Tobacco smoking status NHIS Smoker (finding) [facility] Start: 1980 Sex Assigned At Female F [facility] Start: 03-31-2024 Sex Female (finding) [facility] NEGATED: Highlighted row [facility] Goals Date Patient Goal Desired Activity /State Functional Status Date Assessment Result Facility 11-14-2023 Functional status Patient at Baseline [facility] Work Phone: 05-15-2022 Functional status Patient at Baseline [facility] Work Phone: Mental Status Date Assessment Result Facility 11-14-2023 Cognitive function Cognitive Sta tus Patient at Baseline [facility] Work Phone: 05-15-2022 Cognitive function Cognitive Sta tus Patient at Baseline [facility] Work Phone: Clinical Notes 06-07-2021 to 03-15-2024 Note Date & Type Note Facility 03-15-2024 Note Cardiology Clinic No te HPI: Shahla Arias is a 44 y.o. 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 She presents today for follow up. She was recently at [facility] for acute hypotension, IAM, and ECG [...] - Transthoracic echo (TTE) complete; Future WPW (Xgcja-Qawvnkcqb-Vofky syndrome) - Treadmill Stress Myocardial Perfusion Imaging; [...] cardiology clinic Benito Prado MD Interventional Cardiology [place] (more content not included)... [facility] 11-14-2023 Discharge summary Note Date/Time November 14, 2023 7:17am [facility] [address] [place] [address] Discharge Summary Signed Patient: Shahla Arias MR#: [id number] : 1980 Acct:[id number] Age/Sex: 43 / F Adm Date: 4 Loc: 1S Room: [address] [place] [address]: Geo Loomis MD Copies to: [...] the unit milieu. She has beenworking with case aide on her aftercare she agreed to continue the current medications regimen. She understands risks, benefits, and indications of current medication regimen.She sees Opal Tracey her outpatient DUKEY RIDER She has not history of recent suicide [...] Instructions: Important Contact Information You can call [facility] Behavioral Health at [phone] any time day or night if you have emergent questions or question regarding discharge instructions. If at any time you are feeling an increase inyour psychiatric symptoms, call your physician or behavioral healthcare provider. If any time you have thoughts of harming yourself or others contact one of the following: Call (available 26/09) Crisis Text Line (available 26/09) text 4HOPE to [phone] [facility] Hope Line (available 8 a.m. Midnight) call [phone] ([phone]) Instructions: Know your Meds Prescriptions: New bupropion [...] tablet 75 mg PO DAILY Follow Up: [facility] [place] Health [Outside] Josette Mandel NP-C [Primary Care Provider] [...] Vivek Antoine MD> 11/14/23 0716 [facility] Work Phone: 1(184) 309-990509-09-2024 Progress note Author Vivek washburn [facility] November 13, 2023 7:20am Note Date/Time November 13, 2023 7:19am [facility] [address] [place] [address] Psychiatry Progress Note Signed Patient: Shahla Arias MR#: [id number] : 1980 Acct:[id number] Age/Sex: 43 / F Adm Date: 4 Loc: Room: [address] [place] [address] Type : ADM IN Attending Dr: Geo Loomis MD Copies to: ~ Date of Service: 11/13/2023 Subjective Subjective Narrative: Ms. Arias reported that she her anxiety at 7 out of 10 with 10 being the worst. Depression is ongoing but noted no suicidal thoughts on exam. She lives with herhusband and daughter whom she described as supportive. She sees Sabina Tracey her outpatient [facility] and a therapist. She said symptoms are [...] Vivek Antoine MD> 11/13/23 0720 [facility] Work Phone: 1(696) 515-314009-08-2024 Progress note Author Geo Loomis [facility] November 12, 2023 11:19am Note Date/Time November 12, 2023 11:20am [facility] [address] [place] [address] Psychiatry Progress Note Signed Patient: Shahla Arias MR#: [id number] : 1980 Acct:[id number] Age/Sex: 43 / F Adm Date: 4 Loc: Room: [address] [place] [address] Type : ADM IN Attending Dr: Geo [...] signed by Geo Loomis MD> 11/12/23 1119 [facility] Work Phone: 1(894) 366-642409-07-2024 Progress note Author Geo Loomis [facility] November 11, 2023 12:01pm Note Date/Time November 11, 2023 12:01pm [facility] [address] [place] [address] Psychiatry Progress Note Signed Patient: Shahla Arias MR#: [id number] : 1980 Acct:[id number] Age/Sex: 43 / F Adm Date: 4 Loc: Room: [address] [place] [address] Type : ADM IN Attending Dr: Geo [...] signed by Geo Loomis MD> 11/11/23 1201 [facility] Work Phone: 1(689) 422-164809-06-2024 Progress note Author Geo Loomis [facility] November 10, 2023 1:59pm Note Date/Time November 10, 2023 12:12pm [facility] [address] [place] [address] Psychiatry Progress Note Signed Patient: Shahla Arias MR#: [id number] : 1980 Acct:[id number] Age/Sex: 43 / F Adm Date: 4 Loc: Room: [address] [place] [address] Type : ADM IN Attending Dr: Geo [...] <Electronically signed by Geo Loomis MD> 11/10/23 9044 [facility] Work Phone: 1(675) 578-501309-05-2024 History and physical note Author Geo Loomis [facility] November 09, 2023 2:13pm Note Date/Time November 09, 2023 1:40pm [facility] [address] [place] [address] Psychiatry H&P Signed Patient: Shahla Arias MR#: [id number] : 1980 Acct:[id number] Age/Sex: 43 / F Adm Date: 4 Loc: Room: [address] [place] [address] Type: ADM IN Attending Dr: Geo Loomis [...] with the medical student as nelsy. [facility] Medical History Essential hypertension Depression with anxiety [...] of carpal tunnel release of both wrists [place] teeth removed History of cholecystectomy Family History [...] Appearance Clear Urine pH 5.0 Ur Specific [place] 1.018 Urine Protein Negative Urine Glucose (UA) [...] <Electronically signed by Geo Loomis MD> 11/09/23 3891 [facility] Work Phone: 1(776) 717-159206-24-2024 Hospital Discharge instructions Additional Instructions Try your other anxiety medication first For continued anxiety despite your other medication you may take 1 lorazepam every 6-8 hours Follow-up as scheduled with the counseling center I also gave you the hope number to call if needed Return to the ER for thoughts of hurting yourself or others severe anxiety or any other [facility] Work Phone: 1(135) 541-593004-24-2024 NoteCardiology Clinic Note Chief Complaint: palpitations HPI: [...] reflux disease), Hypertension, PAD (peripheral artery disease) ([facility]), Palpitations, and Raynaud's disease. Surgical History She [...] Treadmill Stress Myocardial Perfusion Imaging; Future WPW (Jnbhy-Nyfqzdhsp-Ihsuj syndrome) - Treadmill Stress Myocardial Perfusion Imaging; Future Dyspnea on exertion - Treadmill Stress Myocardial Perfusion Imaging; Future -P (more content not included)...[facility]04-24-2024 NoteNew patient here to establish care. She is referred from Josette Mandel CNP for palpitations. She had normal heart cath in 2020 at [facility]. Wore 5 day Holter monitor last month. She sees vascular surgery at [facility] for PAD. PCP started her on metoprolol tartrate 25mg bid but patient did not start it. She denies chest pain. Gets SOB w/ exertion and palpitations daily.[facility]02-10-2024 Evaluation note* Encounter Date Diagnosis Assessment Notes [...] understanding and is agreeable with treatment plan [employer] Other 12-22-2023 Evaluation note* Encounter Date Diagnosis [...] (ICD-10 - F17.218) Smoking cessation strongly encouraged. [employer] Other 10-17-2023 Evaluation note* Encounter Date Diagnosis [...] understanding and is agreeable to treatment plan [employer] Other 09-19-2023 Evaluation note* Encounter Date Diagnosis [...] She may need to consider seeing a head bellhop captain and discussing alternative medication options with her [...] (ICD-10 - F17.218) Smoking cessation strongly encouraged. [employer] Other 09-11-2023 Evaluation note* Encounter Date Diagnosis Assessment Notes Treatment Notes Treatment Clinical Notes Nov, Essential hypertension (ICD-10 - I10) [employer] Other 06-21-2023 Evaluation note* Encounter Date Diagnosis [...] (ICD-10 - F17.218) Smoking cessation strongly encouraged. [employer] Other 03-21-2023 Evaluation note* Encounter Date Diagnosis Assessment Notes Treatment Notes Treatment Clinical Notes May, Vitamin D deficiency (ICD-10 - E55.9) [employer] Other 03-15-2023 Evaluation note* Encounter Date Diagnosis [...] (ICD-10 - F17.218) Smoking cessation strongly encouraged. [employer] Other 03-11-2023 Progress note Author Geo Loomis [facility] May 14, 2022 11:17am Note Date/Time May 14, 2022 11: 17am [facility] [address] [place] [address] Psychiatry Progress Note Signed Patient: Shahla Ruelas MR#: [id number] : 1980 Acct:[id number] Age/Sex: 42 / F Adm Date: 3 Loc: Room: [address] [place] [address] Type : ADM IN Attending Dr: Geo [...] By: <Electronically signed by Geo Loomis MD> 05/14/22 1117 [facility] Work Phone: 1([phone]) 113-441603-10-2023 Progress note Author Geo Loomis [facility] May 13, 2022 12:04pm Note Date/Time May 13, 2022 10: 47am [facility] [address] [place] [address] Psychiatry Progress Note Signed Patient: Shahla Ruelas MR#: [id number] : 1980 Acct:[id number] Age/Sex: 42 / F Adm Date: 3 Loc: Room: [address] [place] [address] Type : ADM IN Attending Dr: Geo [...] <Electronically signed by Geo Loomis MD> 05/13/22 1200 [facility] Work Phone: 1(881) 694-310003-09-2023 Progress note Author Geo Loomis [facility] May 12, 2022 2:13pm Note Date/Time May 12, 2022 9:57 am [facility] [address] [place] [address] Psychiatry Progress Note Signed Patient: Shahla Ruelas MR#: [id number] : 1980 Acct:[id number] Age/Sex: 42 / F Adm Date: 3 Loc: Room: [address] [place] [address] Type : ADM IN Attending Dr: Geo [...] out of 10. Patient claims she feels inspector multifocal lens with a burden lifted. Patient claims that [...] Geo Loomis MD> 05/12/22 1413 [facility] Work Phone: 1(280) 505-474903-08-2023 History and physical note Author Geo Loomis [facility] May 11, 2022 10:39am Note Date/Time May 11, 2022 10:3 9am [facility] [address] [place] [address] Psychiatry H&P Signed Patient: Shahla Ruelas MR#: [id number] : 1980 Acct:[id number] Age/Sex: 42 / F Adm Date: 3 Loc: Room: [address] [place] [address] Type: ADM IN Attending Dr: Geo Loomis [...] denied any recent hallucinations. Past psych history: [facility], major depressive disorder Past hospitalizations: Denies Past [...] Cloudy A Urine pH 6.0 Ur Specific [place] 1.028 Urine Protein 30 H Urine Glucose [...] Geo Loomis MD> 05/11/22 1039 [facility] Work Phone: [phone]) 721-202101-10-2023 Evaluation note* Encounter Date Diagnosis Assessment Notes [...] treatment. Call at any time with questions/concerns. [employer] Other 12-12-2022 History of Present illness Narrative* Dennis Dunn MD - 02/14/2022 12:03 PM EST This encounter was opened in error. Patient was a No-Show. Please disregard. Called, directly to busy signal. Dennis Sarmiento MD documented in this [id number] Evaluation note* Encounter Date Diagnosis Assessment Notes Treatment Notes Treatment Clinical Notes Nov, Mild intermittent asthma without complication (ICD-10 - J45.20) [employer] Other 06-30-2022 History of Present illness Narrative* [...] and Staging Information: SPECIMEN FOR SURGICAL PATH: [id number] Order: [id number] Collected 07/30/2021 15:54 Status: Final result Visible to patient: Yes (not seen) Dx: Liver cyst; Cyst of gallbladder 0 Result Notes Component Case Report Surgical Pathology Report Case: [id number] Authorizing Provider: Dennis Sarmiento MD Collected: 07/30/2021 1554 Ordering Location: [facility] Main OR Received: 08/03/2021 1030 Pathologist: Marc [...] identified lymph nodes or masses grossly. Sections: Community Ambassador A1. Fibrotic tissue (X) B. Requisitioned as [...] of tumor, it is inked green. Sections: Community Ambassador B1. Cystic lesion, fibrotic area (X) B2-B6. [...] Kortney Ivey M.D Clinical Information Resulting Agency [facility] [place] Collected: 07/30/21 15:54 Last Resulted: 08/05/21 08:46 Order Details View Encounter Lab and Collection Details Routing Result History Scans on Order [id number] Document on 08/05/2021 8:46 AM by Marc Ricketts, Treatment Recommendations and NCCN: Plan no surgical intervention needed at this time. Follow up in 02/[address] Sarmiento The above recommendations were based on NCCN guidelines, as well as consideration of current national standards and review of the literature. Nicole Garcia RN documented in this [id number] [facility] - History and [...] 4 mg/0.1 mL nasal liquid Use 1 [place] in one nostril (alternate sides) as needed [...] ??? T Prot (more content not included)...[facility] [id number] Evaluation note* Encounter Date Diagnosis Assessment Notes [...] I see her back in 6 months. [employer] Other 06-13-2022 History of Present illness Narrative* Dennis Dunn MD - 08/16/2021 1:09 PM EDT Phone numbers Preferred Documentation: Mode: Telephone Patient Patient Work Phone: Patient Cell Preferred phone: [phone] Consent: I confirmed patient understanding of the risks and benefits of telehealth visits and obtained consent to proceed with the telehealth visit. Location of Patient: Home of patient Surgery Follow Up Feeling well since surgery. Still hurting but she is starting to feel better. [facility] for staple removal. SPECIMEN FOR SURGICAL PATH: [id number] Order: [id number] Collected 07/30/2021 15:54 Status: Final result Visible to patient: Yes (not seen) Dx: Liver cyst; Cyst of gallbladder 0 Result Notes Component Case Report Surgical Pathology Report Case: [id number] Authorizing Provider: Dennis Sarmiento MD Collected: 07/30/2021 1554 Ordering Location: [facility] Main OR Received: 08/03/2021 1030 Pathologist: Marc [...] identified lymph nodes or masses grossly. Sections: Community Ambassador A1. Fibrotic tissue (X) B. Requisitioned as [...] of tumor, it is inked green. Sections: Community Ambassador B1. Cystic lesion, fibrotic area (X) B2-B6. 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 Follow up in 6 months with a televisit in person if needed. Dennis Sarmiento MD, FACS documented in this [id number] History of Present illness Narrative* Josephine Osborn MD - 08/10/2021 3:25 PM EDT Images from the original note were not included. [facility] New Patient - History and Physical Patient [...] 4 mg/0.1 mL nasal liquid Use 1 [place] in one nostril (alternate sides) as needed [...] less than 10cc serous fluid in bulb. [place] in place, incision healing Lymphatic: No cervical [...] Risk protocol implemented: No documented in this [id number] Hospital Discharge instructions* Discharge Instructions* Meenakshi Weeks PA-C - 08/04/2021 8:31 AM EDT GENERAL SURGERY DISCHARGE INSTRUCTIONS C O N F I D E N T I A L I N F O R M A T I O N Shahla Ruelas [id number] The following is a brief overview of [...] Other SIGNED: Registered Nurse documented in this [id number] History of Present illness Narrative* Meenakshi Weeks [...] vital signs. Holding home losartan. Pulm: Resp avaya engineer protocol, Encourage IS x10/hr, OOB and ambulation [...] discharge planning needs as warranted. MILAN Ferrell, blood or blood bank technician * Nicole Bello PA-C - 08/03/2021 7:19 [...] vital signs. Holding home losartan. Pulm: Resp avaya engineer protocol, Encourage IS x10/hr, OOB and ambulation [...] Bello PA-C General Surgery PGY3 Blue Pager: [phone] * Tamara Jurado MD - 08/02/2021 8:53 AM EDT Images from the original note were not included. [facility] PROGRESS NOTE Interval history/Events: No acute events overnight Pain adequately controlled with HEEL CURVER Tolerating clear liquid Using IS Drain output [...] vital signs. Holding home losartan. Pulm: Resp avaya engineer protocol, Encourage IS x10/hr, OOB and ambulation GI: FLD. Cont nexium daily, carafate. /FEN: cont LR at 75/hr. TOV today. Endocrine: no hx of glyemic issues ID: No abx indicated Proph: lovenox daily and SCDs Dispo: Continue on RNF Patient d/w Attending Surgeon Dr. Sarmiento --- Tamara Jurado MD General Surgery PGY3 Blue Pager: [phone] * Madeleine Hooks MD - 08/01/2021 8:06 AM EDT Images from the original note were not included. BLUE SURGERY PROGRESS NOTE Interval history/Events: No acute events overnight Pain adequately controlled with HEEL CURVER Mild nausea but improved Tolerating clear liquid [...] PRN .NO ORAL PAIN MEDS WHILE ON HEEL CURVER/EPIDURAL 1 Each PRN naloxone 0.4 mg PRN [...] 08/01/2021. Plan: Neuro/Pain: scheduled tylenol, robaxin. Dilaudid HEEL CURVER. Cont home trazodone and fluoxetine CV: Monitor vital signs Pulm: Resp avaya engineer protocol, Encourage IS x10/hr, OOB and ambulation GI: NPO for possible PTHC today. Consult IR for PTHC given bile leak ( discussed with ED resident care associate who will discuss with IR team). Cont nexium daily, carafate /FEN: cont LR at 75/hr. Voiding spontaneously Endocrine: no hx of glyemic issues ID: No abx indicated Proph: lovenox daily and SCDs Dispo: Continue on RNF Patient d/w Attending Surgeon Dr. Sarmiento --- Madeleine Hooks MD General Surgery PGY3 Blue Pager: [phone] * Tamara Jurado MD - 07/31/2021 8:55 AM EDT Images from the original note were not included. BLUE SURGERY PROGRESS NOTE Subjective - NAEON - some abdominal pain on HEEL CURVER - some indigestion this morning - has [...] PRN .NO ORAL PAIN MEDS WHILE ON HEEL CURVER/EPIDURAL 1 Each PRN naloxone 0.4 mg PRN [...] for nausea; continue carafate - Tylenol, Robaxin, HEEL CURVER - LR 75, daily labs - oob [...] Torsten Jurado MD PGY1 documented in this [id number] Note* Care Plan Note - AnilaOly vargas [...] adult patient will be met Outcome: Progressing [id number] Miscellaneous Notes* Care Plan Note - Oly [...] Brief Operative Note MAIN OR 07 Shahla Ruelsa 41 year old female Surgical Contact Serial Number: [id number] Preoperative Diagnosis: Cyst of gallbladder [K82.8] Liver [...] Mercedes Soliman; Anya Fletcher; Juan Jon RN Grocery Caddy Nurse: Vitaly Reyes, VITA; Kraig Espinal; Rosa Seo RN; Yumiko Haji, VITA; Irina Marie, VITA; Juany Higginbotham, undercover copBarber Or Beauty Shop Manager: Madeleine Hooks MD Anesthesia: General Anesthesiologist: Neil Rodriguez MD; Uriel Hathaway DO CAA: Rina Childress MANAGER UTILIZATION MANAGEMENT: Adrian Bermudez SOLAR PANEL TECHNICIAN-MANAGER UTILIZATION MANAGEMENT; Jewel Vogel APRN-MANAGER UTILIZATION MANAGEMENT; Mariel Ireland APRN-MANAGER UTILIZATION MANAGEMENT Technology Professional: Al Mascorro MD; Jean Ojeda MD Specimen(s): [...] gauge Left Hand (Active) Surgical Drain Esdras Saarvia -- Round # 1 10 fr Right;Upper [...] Diamond Larson MD Co-Surgeon: Dennis Sarmiento MD Digital Asset Specialist: Madeleine Hooks MD (general surgery resident) Anesthesiologist: [...] were discussed with the patient and/or legal software sales representative. The risks, benefits and alternatives were reviewed. Questions regarding anesthesia were answered. Patient and/or legal software sales representative knows such anesthetics and procedures [...] were discussed with the patient and/or legal software sales representative. The risks, benefits and alternatives were reviewed. Questions regarding blood transfusions were answered. The patient /or the patient s legal software sales representative agree with the plan for transfusion of blood and/or blood components.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 Diagnoses / Procedures [facility] Referred To Contact General Surgery Diagnoses Cyst of gallbladder Liver cyst Cyst of gallbladder [K82.8] Liver cyst [K76.89] Procedures HEPATECTOMY, RESECTION, LIVER; PARTIAL LOBECTOMY UNLISTED PROCEDURE, LAPAROSCOPY, BILIARY TRACT HEPATECTOMY, PARTIAL, LOBECTOMY LAPAROSCOPY, DIAGNOSTIC EXPLORATION, COMMON BILE DUCT Dennis Sarmiento MD [address] [place], [place] [address] Labs[facility] [place] [id number] [employer] [address] [place], [place] [address] [address] Phone: [phone] Referral ID Status Reason Start Date Expiration Date Visits Re quested Visits Authorized [id number] 3 3 [facility] NarrativeDiscuss Anxiety, weight gain , possible hormone imbalance follows with [facility] Other Summary Purpose Family History No Family [...] unspecified iron deficiency anemia type Claudia Luevanoah, SOLAR PANEL TECHNICIAN-MAILROOM PERSONNEL [address] [place] [address] [place] [address] [facility] [address] [place] [address] Referral ID Status Reason Start Date Expiration Date V isits Requested Visits Authorized [id number] Authorized 07/16/2021 07/16/2022 20 20 Scheduling Instructions No appointment is needed for this referral, if you have not heard from the Anemia Clinic within 2 business days, please call [phone] Comments Referred patient's anemia will be managed by either Pharmacists and/or Nurse Practitioners. If a pharmacist is managing, the referral serves to acknowledge your agreement to [facility]'s Consult Agreement where the pharmacist may start, [...] hepatectomy partiel lobectomy 07/30 For questions call [phone] (Anticoagulation/Medication Management Clinic) Specialty Diagnoses / Procedures Referred By Vinayak t Referred To Contact Diagnoses Postoperative pain Meenakshi Weeks PA-C [address] [place] [address] Referral ID Status Reason Start Date Expiration Date V isits Requested Visits Authorized [id number] Authorized 03/05/2022 3 3 Specialty Diagnoses / Procedures Referred By Contac t Referred To Contact Radiology Procedures CT ABDOMEN/PELVIS W/ [place] [address] [address] [place] [id number] [facility] [address] SCAN Referral ID Status Reason Start Date Expiration Date Visits Re quested Visits Authorized [id number] Closed 08/01/2021 08/01/2022 1 1 Specialty Diagnoses / Procedures Referred By Contac t Referred To Contact Radiology Procedures XR FLUORO SUPPORT ONLY IN SURGERY XR MH FLUORO <1 HOUR Dennis Sarmiento MD [address] [place] [address] [facility] DIAGNOSTIC RADIOLOGY [address] [place] [address] Referral ID Status Reason Start Date Expiration Date Visits Re quested Visits Authorized [id number] Closed 07/30/2021 07/30/2022 1 1 Chief Complaint [...] section and content) DATE CREATED AUTHOR 03/11/2018 [facility] DATE CREATED AUTHOR AUTHOR'S BEN MAHAJAN 11/06/2020 [facility] DATE CREATED AUTHOR AUTHOR'S ORGANIZ ATION 03/15/2022 [facility] DATE CREATED AUTHOR AUTHOR'S ORGANIZ ATION 08/12/2022 [facility] DATE CREATED AUTHOR AUTHOR'S ORGANIZ ATION 09/01/2023 [facility] DATE CREATED AUTHOR AUTHOR'S ORGANIZ ATION 04/15/2024 [facility] DATE CREATED AUTHOR AUTHOR'S ORGANIZ ATION 05/18/2024 [facility] Care Teams (unrecognized sec tion and content) Team Status: Active Member Role Status Dates Josette Mandel DUKEY RIDER-C Primary Care Provider Active Team Status: Inactive [...] 2023 End: August 28, 2023 Junie Zamora [facility] Emergency Provider Active Start: August 28, 2023 [...] Loomis MD Admit Provider, Attending Provider Active Catalytic Case Operator Relationship Specialty Start Date End Date Debo Strickland APRN-MAILROOM PERSONNEL [address] [place] [address] [place] [address] [facility] 05/08/21 Catalytic Case Operator Relationship Specialty Start Date End Date Debo Strickland APRN-MAILROOM PERSONNEL [address] [place] [address] [place] [address] [facility] 05/08/21 Catalytic Case Operator Relationship Specialty Start Date End Date Debo Strickland APRN-MAILROOM PERSONNEL [address] [place] [address] [place] [address] [facility] Gastroenterology 05/08/21 Catalytic Case Operator Relationship Specialty Start Date End Date Debo Strickland APRN-MAILROOM PERSONNEL [address] [place] [address] [place] [address] [facility] G[facility] 05/08/21 Catalytic Case Operator Relationship Specialty Start Date End Date Debo Strickland APRN-MAILRO[employer] PERSONNEL [address] [place] [address] [place] [address] [facility] Gastroenterology 05/08/21 Dennis Sarmiento MD [address] [place] [address] [place] [address] Physician General Surgery 07/10/21 Catalytic Case Operator Relationship Specialty Start Date End Date Debo Strickland APRN-MAILROOM PERSONNEL [address] [facility] [place] [address] [facility] Gastroenterology 05/08/21 Dennis Sarmiento MD [address] [place] [address] Physician General Surgery 07/10/21 Catalytic Case Operator Relationship Specialty Start Date End Date Debo Strickland APRN-MAILRO[employer] PERSONNEL [address] [place] [address] [place] [address] [facility] Gastroenterology 05/08/21 Dennis Sarmiento MD [address] [place] [address] Physician General Surgery 07/10/21 Catalytic Case Operator Relationship Specialty Start Date End Date Debo Strickland APRN-MAIL[employer] PERSONNEL [address] [place] [address] [place] [address] [facility] Gastroenterology 05/08/21 Dennis Sarmiento MD [address] [place] [address] Physician General Surgery 07/10/21 Catalytic Case Operator Relationship Specialty Start Date End Date Debo Strickland APRN-[employer]IL[employer] PERSONNEL [address] [place] [address] [place] [address] [facility] Gastroenterology 05/08/21 Dennis Sarmiento MD [address] [place] [address] Physician General Surgery 07/10/21 Catalytic Case Operator Relationship Specialty Start Date End Date Debo Strickland APRN-MAIL[employer] PERSONNEL [address] [place] [address] [place] [address] [facility] Gastroenterology 05/08/21 Dennis Sarmiento MD [address] [place] [address] Physician General Surgery 07/10/21 Marcella Luevano APRN-[employer] PERSONNEL [address] [place] [address] [place] [address] [facility] Anesthesiology 08/07/21 Catalytic Case Operator Relationship Specialty Start Date End Date Debo Strickland APRN-MAIL[employer] PERSONNEL [address] [place] [address] [place] [address] [facility] Gastroenterology 05/08/21 Dennis Sarmiento MD [address] [place] [address] Physician General Surgery 07/10/21 Marcella Luevano APRN-MAILRO[employer] PERSONNEL [address] [place] [address] [place] [address] [facility] Anesthesiology 08/07/21 Catalytic Case Operator Relationship Specialty Start Date End Date Debo Strickland APRN-[employer] P[employer]NEL [address] [place] [address] [place] [address] [facility] Gastroenterology 05/08/21 Dennis Sarmiento MD [address] [place] [address] Physician General Surgery 07/10/21 Marcella Luevano APRN-[employer] PERSONNEL [address] [place] [address] [place] [address] [facility] Anesthesiology 08/07/21 Catalytic Case Operator Relationship Specialty Start Date End Date Dennis Sarmiento MD [address] [place] [address] Physician General Surgery 07/10/21 Marcella Luevano SOLAR PANEL TECHNICIAN-[employer]EL [address] [place] [address] [place] [address] [facility] Anesthesiology 08/07/21 Catalytic Case Operator Relationship Specialty Start Date End Date Dennis Sarmiento MD [address] [place] [address] Physician General Surgery 07/10/21 Marcella Luevano, SOLAR PANEL TECHNICIAN-[employer]ERSON[employer]EL [address] [place] [address] [place] [address] [facility] Anesthesiology 08/07/21 Catalytic Case Operator Relationship Specialty Start Date End Date Dennis Sarmiento MD [address] [place] [address] Physician General Surgery 07/10/21 Marcella Luevano SOLAR PANEL TECHNICIAN-[employer]EL [address] [place] [address] [place] [address] [employer] Anesthesiology 08/07/21 Team Status: Active Member Role Status Dates Tamara Calero , DO Primary Care Provider Active Antolin Abarca , DO Emergency Provider Active Geo Loomis MD Admit Provider, Attending Provider Active Catalytic Case Operator Relationship Specialty Start Date End Date Dennis Sarmiento MD [address] [place] [address] Physician General Surgery 07/10/21 Marcella Luevano SOLAR PANEL TECHNICIAN-[employer] PERSONNEL [address] [place] [address] [place] [address] [facility] Anesthesiology 08/07/21 Team Status: Active Member Role [...] Inactive Member Role Status Dates Josette Mandel DUKEY RIDER-C Primary Care Provider Active Start: September 28, 2023 End: September 28, 2023 Vale Chen APRN Attending Provider Active Start: September 28, 2023 End: September 28, 2023 Team Status: Active Member Role Status Dates Tamara Calero DO Primary Care Provider Active Start: October 25, 2023 Vivek Antoine MD Attending Provider Active Start: October 25, 2023 Team Status: Active Member Role Status Dates Josette Mandel DUKEY RIDER-C Primary Care Provider Active Start: November 08, [...] Inactive Member Role Status Dates Josette Mandel DUKEY RIDER-C Primary Care Provider Active Start: November 08, 2023 End: November 14, 2023 Art Pa MD Emergency Provider Active St art: November 08, 2023 End: November 14, 2023 Geo Loomis MD Admit Provider, Atte nding Provider Active Start: November 08, 2023 End: November 14, 2023 Team Status: Active Member Role Status Dates Josette Mandel DUKEY RIDER-C Primary Care Provider Active Start: November 09, 2023 Art Pa MD Emergency Provider Active St art: November 09, 2023 Geo Loomis MD Admit Provider, Atte nding Provider, Other Provider Active Start: November 09, 2023 Team Status: Inactive Member Role Status Dates Josette Mandel DUKEY RIDER-C Primary Care Provider Active Start: February 12, [...] of biliary stent insertion Johan Stephens MD [address] [place] [address] [facility] [address] [place] [address] Referral ID Status Reason Start Date Expiration Date V isits Requested Visits Authorized [id number] Authorized 04/28/2021 10/25/2021 3 3 Reason Onset [...] Rayshawn Shaw RN) 2213 (Given - Provider: lOy High RN) 2199 (Due) Continuous Medication Order [...] BE BASED ON THE PRIMARY CLINICAL RECORDS. [facility] [employer] provides no warranty or guarantee of the accuracy or completeness of information in this document.
[2024-05-22 08:25] LABS: Influenza Virus A Antigen Negative; Influenza Virus B Antigen Negative; Internal Control Within Normal Limits; SARS-CoV-2 Ag NEGATIVE (NEGATIVE)
--- NOTE | 2024-05-22 08:27 | P.HP_ITS ---
HPI H&P: HPI History of Present Illness Chief complaint: ELEVATED TROPONIN, IAM Narrative: Patient scented to the emergency room mostly just nausea and abdominal discomfort, CT was scan of the abdomen was unremarkable, labs checked did show elevated troponin, she does discussed me increasing cough and shortness of breath especially with any activity some tightness in her chest at times, but not consistent. In ER found to have significantly elevated high-sensitivity troponin which has been trending down since admission, with increasing cough possible bronchitis chest x-ray pending, urinalysis borderline positive for acute UTI as a possible other etiology for her NSTEMI type II Opioid HPI Opioid Management Most Recent Pain and Opioid Data: Last Pain Scale 2 05/21/24 16:21 05/21/24 Last Pain Assessment 05/22/24 07:00 Last ED Pain Assessment 05/21/24 16:21 Last MAR Pain Assessment 05/21/24 16:00 Last ORT Total Score 3 05/21/24 23:57 05/21/24 Last ORT Risk Category Low Risk 05/21/24 23:57 05/21/24 Review of Systems ROS Status of ROS 10 or more systems reviewed and unremark able except as noted in history and below [facility] Medical History Schizo affective schizophrenia ?F25.9 - Schizoaffective disorder, unspecified (ICD-10) delivery delivered ?O82 - Encounter for delivery without indication (ICD-10) Cholecystectomy planned Bilateral carpal tunnel syndrome ?G56.03 - Carpal tunnel syndrome, bilateral upper limbs (ICD-10) Left adrenal mass ?E27.8 - Other specified disorders of adrenal gland (ICD-10) Raynauds disease ?I73.00 - Raynaud's syndrome without gangrene (ICD-10) Nicotine dependence ?F17.200 - Nicotine dependence, unspecified, uncomplicated (ICD-10) GERD without esophagitis ?K21.9 - Gastro-esophageal reflux disease without esophagitis (ICD-10) Irritable bowel syndrome (IBS) ?K58.9 - Irritable bowel syndrome, unspecified (ICD-10) Left ventricular hypertrophy ?I51.7 - Cardiomegaly (ICD-10) Asthma ?J45.909 - Unspecified asthma, uncomplicated (ICD-10) Vitamin D deficiency ?E55.9 - Vitamin D deficiency, unspecified (ICD-10) SHARI (obstructive sleep apnea) ?G47.33 - Obstructive sleep apnea (adult) (pediatric) (ICD-10) Anxiety disorder with panic attacks ?F41.9 - Anxiety disorder, unspecified (ICD-10) Depression ?F32.A - Depression, unspecified (ICD-10) Hypertension ?I10 - Essential (primary) hypertension (ICD-10) Surgical History H/O removal of cyst ?Z98.890 - Other specified postprocedural states (ICD-10) H/O cardiac catheterization ?Z98.890 - Other specified postprocedural states (ICD-10) H/O tubal ligation ?Z98.51 - Tubal ligation status (ICD-10) Family History Mother Family history of stroke Family history of cancer Social History Highest level of school completed/degree received: high school graduate Little interest or pleasure in doing things: more than half the days Feeling down, depressed, or hopeless: more than half the days Meds Home Medications and Allergies Home Medications ?Medication ?Instructions ?Recorded ?Confirmed ?Type atorvastatin 40 mg tablet 40 mg PO DAILY #30 tabs 05/08/23 05/21/24 Rx clopidogrel 75 mg tablet (Plavix) 75 mg PO DAILY #30 tabs 05/08/23 05/21/24 Rx gabapentin 300 mg capsule 600 mg PO TID 05/09/23 05/21/24 History olmesartan 20 1 tab PO DAILY 05/09/23 05/22/24 History mg-hydrochlorothiazide 12.5 mg tablet omeprazole 40 mg capsule,delayed 40 mg PO .BIDAC 05/09/23 05/21/24 History release albuterol sulfate 90 mcg/actuation 2 puff inhalation Q4H PRN 02/12/24 05/21/24 History aerosol inhaler shortness of breath or wheezing cholecalciferol (vitamin D3) 50 50 mcg PO DAILY 02/12/24 05/21/24 History mcg (2,000 unit) tablet lorazepam 1 mg tablet 1 mg PO TID PRN anxiety 02/12/24 05/21/24 History olanzapine 5 mg tablet 5 mg PO BID PRN agitation 02/12/24 05/22/24 History aspirin 81 mg tablet,delayed 81 mg PO DAILY 05/21/24 05/21/24 History release bupropion HCl 300 mg 24 hr tablet, 300 mg PO DAILY 05/21/24 05/21/24 History extended release hydroxyzine pamoate 25 mg capsule 75 mg PO TID PRN anxiety 05/21/24 05/22/24 History levomilnacipran 20 mg capsule,24 20 mg PO DAILY 05/21/24 05/21/24 History hr,extended release (Fetzima) vilazodone 20 mg tablet 20 mg PO DAILY 05/21/24 05/22/24 History Allergies Allergy/AdvReac Type Severity Reaction Status Date / Time ciprofloxacin (From Cipro) Allergy Severe Swelling Verified 05/21/24 13:29 of Lip/Tongue/Throat metronidazole (From Flagyl) Allergy Severe Swelling Verified 05/21/24 13:29 of Lip/Tongue/Throat Penicillins Allergy Severe Swelling Verified 05/21/24 13:29 of Lip/Tongue/Throat Exam Constitutional Vital Signs, click to edit/add: Last Vital Signs Temp 97.9 F 05/22/24 03:00 Pulse 96 H 05/22/24 05:59 Resp 17 05/22/24 03:07 BP 106/52 05/22/24 04:52 Pulse Ox 100 05/22/24 03:07 O2 Del Method Room Air 05/22/24 03:07 Documenting provider has reviewed patient's vital signs: yes Common normals: no apparent distress Chest Common normals: inspection of chest normal Respiratory Common normals: normal respiratory effort Auscultation: rhonchi Cardio Common normals: regular rate and regular rhythm GI Common normals: soft to palpation; negative for Normal to inspection, nondistended, normoactive bowel sounds present (Obese) and tender (Mild right upper quadrant tenderness) Results Labs Labs: Short CBC 05/21/24 05/22/24 Range/Units 13:56 04:49 WBC 8.0 6.7 (4.0-11.0) 10^3/uL Hgb 13.2 10.5 L (12.0-16.0) g/dL Hct 39.2 31.9 L (36.0-48.0) % Plt Count 278 178 (150-450) 10^3/uL BMP 05/21/24 05/22/24 13:56 04:49 Sodium 137 136 Potassium 3.5 3.5 Chloride 99 102 Carbon Dioxide 25.1 23.1 BUN 29.0 H 33.0 H Creatinine 2.24 H 1.89 H Glucose 118 H 90 Calcium 9.0 8.6 Liver Function 05/21/24 05/22/24 Range/Units 13:56 04:49 Total Bilirubin 1.0 0.6 (0.2-1.0) mg/dL AST 39 H 27 (15-37) U/L ALT 43 29 (14-59) U/L Alkaline Phosphatase 97 89 (46-116) U/L Albumin 3.5 2.8 L (3.4-5.0) g/dL Urine 05/21/24 Range/Units 14:00 Urine Color Yellow (YELLOW) Urine Clarity Sl cloudy (CLEAR) Urine pH 5.5 (5.0-9.0) Ur Specific [place] 1.015 (1.005-1.025) Urine Protein Trace (NEG/TRACE) mg/dL Urine Glucose (UA) Negative (NEGATIVE) mg/dL Assessment and Plan Assessment and Plan (1) Abdominal pain: (2) Elevated troponin: (3) Demand ischemia: (4) Asthma: (5) SHARI (obstructive sleep apnea): Plan Admit findings: Sinus tachycardia, mild hypotension secondary to acute bronchitis resulting in acute NSTEMI type II Acute bronchitis-check COVID and flu, check chest x-ray, on antibiotics for the possible UTI, add aerosol treatments Acute NSTEMI type II-consult cardiology, check echocardiogram, she was due to have a stress test and patient declined at that time, with elevated troponins, consideration for heart cath, plan per cardiology Acute exacerbation of COPD secondary to the acute bronchitis-aerosol treatments Hypomagnesemia-supplement Acute UTI-culture pending, IV antibiotics Iron deficiency anemia-monitor daily Morbid obesity-monitor and diet control Elevated [id number]-[id number] lab, doubt , patient with tubal ligation Admission status: Patient admitted to the intensive care unit on the unit with acute NSTEMI type II secondary to acute bronchitis and possible UTI, consult cardiology, medically necessary treatment will span 2 midnights. Inpatient status
[2024-05-22 08:37] LABS: HCG Quantitative 6 mIU/mL
[2024-05-22] MEDS: MAGNESIUM OXIDE 400 MG TABLET PO ×2 (08:44→20:01)
[2024-05-22] MEDS: ATORVASTATIN CALCIUM 40 MG TABLET PO (08:44)
[2024-05-22] MEDS: CHOLECALCIFEROL (VITAMIN D3) 25 MCG/1,000 UNITS TABLET 50 MCG PO (08:44)
[2024-05-22] MEDS: NICOTINE 21 MG PATCH.TD24 TD (08:44)
[2024-05-22] MEDS: BUPROPION HCL 150 MG XL TABLET 24H 300 MG PO (08:44)
[2024-05-22] MEDS: LOSARTAN POTASSIUM 50 MG TABLET PO (08:44)
[2024-05-22] MEDS: CLOPIDOGREL BISULFATE 75 MG TABLET PO (08:45)
[2024-05-22] MEDS: ASPIRIN 81 MG TABLET.DR PO (08:45)
[2024-05-22] MEDS: HYDROCHLOROTHIAZIDE 25 MG TABLET 12.5 MG PO (08:45)
[2024-05-22] MEDS: ISOSORBIDE MONONITRATE 30 MG TAB.ER.24H PO (08:46)
[2024-05-22] MEDS: IPRATROPIUM/ALBUTEROL SULFATE 3 ML AMPUL.NEB IH ×3 (11:13→22:50)
[2024-05-22] MEDS: METOPROLOL TARTRATE 50 MG TABLET PO (13:22)
[2024-05-22] MEDS: NYSTATIN 15 GM POWDER 1 APPLIC TOPICAL (15:12)
--- NOTE | 2024-05-22 16:50 | P.CACN_ITS ---
History of Present Illness History of Present Illness Consult date: 05/22/24 Requesting physician: Frandy Mendez Chief complaint: ELEVATED TROPONIN, IAM Narrative: Patient is 44-year-old female with history of hypertension, hyperlipidemia, prediabetes , obesity, sleep apnea, long history of smoking, asthma/COPD, severe peripheral vascular disease of the lower extremities. She had cardiac catheter catheterization 07/02/2020 at [facility] which showed normal coronary arteries. It was performed after she had abnormal stress test showing anterior ischemia Patient presented yesterday to the hospital with 3 to 4 days history of abdominal pain, she was not able to eat at all but she did not have nausea or vomiting, she had some loose stool. She denies any chest discomfort. She also had cough and worsening shortness of breath. She reports that her daughter also had upper respiratory symptoms. She did not have chest pain. She denies orthopnea or paroxysmal nocturnal dyspnea or dizziness or palpitations or legs edema. When admitted to the hospital she was found to have acute kidney dysfunction with creatinine 2.24, in comparison to 1.08 February 14, 2024. Also she has hypomagnesemia. High-sensitivity troponin was elevated at 140 and it has been trending down as her renal function improved and her last troponin was 100. Creatinine 1.89 today. Her lactate was normal at 1.4. BNP normal at 71. EKG showed significant left ventricular hypertrophy with ST-T changes similar to prior EKGs. A limited echo was obtained which showed normal left ventricle systolic function without wall motion abnormalities. She also had evidence of a urinary tract infection she was started on antibiotic. She feels much better today, she is able to tolerate diet well. She smoke about half pack per day and has been smoking since she was 15-year-old. She denies alcohol or illicit drugs. Review of Systems ROS Narrative All systems were reviewed and they were negative except for the positive findings noted above in the history [facility] Medical History Schizo affective schizophrenia ?F25.9 - Schizoaffective disorder, unspecified (ICD-10) delivery delivered ?O82 - Encounter for delivery without indication (ICD-10) Cholecystectomy planned Bilateral carpal tunnel syndrome ?G56.03 - Carpal tunnel syndrome, bilateral upper limbs (ICD-10) Left adrenal mass ?E27.8 - Other specified disorders of adrenal gland (ICD-10) Raynauds disease ?I73.00 - Raynaud's syndrome without gangrene (ICD-10) Nicotine dependence ?F17.200 - Nicotine dependence, unspecified, uncomplicated (ICD-10) GERD without esophagitis ?K21.9 - Gastro-esophageal reflux disease without esophagitis (ICD-10) Irritable bowel syndrome (IBS) ?K58.9 - Irritable bowel syndrome, unspecified (ICD-10) Left ventricular hypertrophy ?I51.7 - Cardiomegaly (ICD-10) Asthma ?J45.909 - Unspecified asthma, uncomplicated (ICD-10) Vitamin D deficiency ?E55.9 - Vitamin D deficiency, unspecified (ICD-10) SHARI (obstructive sleep apnea) ?G47.33 - Obstructive sleep apnea (adult) (pediatric) (ICD-10) Anxiety disorder with panic attacks ?F41.9 - Anxiety disorder, unspecified (ICD-10) Depression ?F32.A - Depression, unspecified (ICD-10) Hypertension ?I10 - Essential (primary) hypertension (ICD-10) Surgical History H/O removal of cyst ?Z98.890 - Other specified postprocedural states (ICD-10) H/O cardiac catheterization ?Z98.890 - Other specified postprocedural states (ICD-10) H/O tubal ligation ?Z98.51 - Tubal ligation status (ICD-10) Family History Mother Family history of stroke Family history of cancer Social History Highest level of school completed/degree received: high school graduate Little interest or pleasure in doing things: more than half the days Feeling down, depressed, or hopeless: more than half the days Meds Home Medications and Allergies Home Medications ?Medication ?Instructions ?Recorded ?Confirmed ?Type atorvastatin 40 mg tablet 40 mg PO DAILY #30 tabs 05/08/23 05/21/24 Rx clopidogrel 75 mg tablet (Plavix) 75 mg PO DAILY #30 tabs 05/08/23 05/21/24 Rx gabapentin 300 mg capsule 600 mg PO TID 05/09/23 05/21/24 History olmesartan 20 1 tab PO DAILY 05/09/23 05/22/24 History mg-hydrochlorothiazide 12.5 mg tablet omeprazole 40 mg capsule,delayed 40 mg PO .BIDAC 05/09/23 05/21/24 History release albuterol sulfate 90 mcg/actuation 2 puff inhalation Q4H PRN 02/12/24 05/21/24 History aerosol inhaler shortness of breath or wheezing cholecalciferol (vitamin D3) 50 50 mcg PO DAILY 02/12/24 05/21/24 History mcg (2,000 unit) tablet lorazepam 1 mg tablet 1 mg PO TID PRN anxiety 02/12/24 05/21/24 History olanzapine 5 mg tablet 5 mg PO BID PRN agitation 02/12/24 05/22/24 History aspirin 81 mg tablet,delayed 81 mg PO DAILY 05/21/24 05/21/24 History release bupropion HCl 300 mg 24 hr tablet, 300 mg PO DAILY 05/21/24 05/21/24 History extended release hydroxyzine pamoate 25 mg capsule 75 mg PO TID PRN anxiety 05/21/24 05/22/24 History levomilnacipran 20 mg capsule,24 20 mg PO DAILY 05/21/24 05/21/24 History hr,extended release (Fetzima) vilazodone 20 mg tablet 20 mg PO DAILY 05/21/24 05/22/24 History Allergies Allergy/AdvReac Type Severity Reaction Status Date / Time ciprofloxacin (From Cipro) Allergy Severe Swelling Verified 05/21/24 13:29 of Lip/Tongue/Throat metronidazole (From Flagyl) Allergy Severe Swelling Verified 05/21/24 13:29 of Lip/Tongue/Throat Penicillins Allergy Severe Swelling Verified 05/21/24 13:29 of Lip/Tongue/Throat Exam Narrative Exam Narrative: She is alert, oriented, not in apparent distress HEENT within normal limits Neck supple, normal range of motion, no carotid bruit, JVD is normal Lungs: Generalized reduced breath sounds with scattered rhonchi Cardiovascular system regular rate and rhythm, normal S1 and S2, no gallop or murmur or click Abdomen soft benign organomegaly or tenderness Extremities no edema or cyanosis or clubbing Neurological examination grossly normal Constitutional Vital Signs, click to edit/add: Last Vital Signs Temp 98.2 F 05/22/24 15:00 Pulse 83 05/22/24 16:44 Resp 15 05/22/24 16:10 BP 92/60 05/22/24 15:00 Pulse Ox 93 L 05/22/24 16:44 O2 Del Method Room Air 05/22/24 16:44 Results Labs and Meds Lab results: Cardiac Enzymes 05/22/24 Range/Units 04:49 AST 27 (15-37) U/L CBC 05/22/24 Range/Units 04:49 WBC 6.7 (4.0-11.0) 10^3/uL RBC 3.62 L (4.20-5.40) 10^6/uL Hgb 10.5 L (12.0-16.0) g/dL Hct 31.9 L (36.0-48.0) % Plt Count 178 (150-450) 10^3/uL Neut # (Auto) 5.0 (1.4-6.5) 10^3/uL Lymph # (Auto) 1.0 L (1.2-3.8) 10^3/uL [place] # (Auto) 0.6 (0.3-0.8) 10^3/uL Eos # (Auto) 0.1 (0.0-0.7) 10^3/uL Baso # (Auto) 0.0 (0.0-0.1) 10^3/uL Comprehensive Metabolic Panel 05/22/24 Range/Units 04:49 Sodium 136 (136-145) mmol/L Potassium 3.5 (3.5-5.1) mmol/L Chloride 102 (98-107) mmol/L Carbon Dioxide 23.1 (21.0-32.0) mmol/L BUN 33.0 H (7.0-18.0) mg/dL Creatinine 1.89 H (0.55-1.02) mg/dL Glucose 90 (74-106) mg/dL Calcium 8.6 (8.5-10.1) mg/dL AST 27 (15-37) U/L ALT 29 (14-59) U/L Alkaline Phosphatase 89 (46-116) U/L Total Protein 5.7 L (6.4-8.2) g/dL Albumin 2.8 L (3.4-5.0) g/dL Intake and Output 05/22/24 05/22/24 05/22/24 07:59 15:59 23:59 Intake Total 1400 / 2850 1000 / 1000 Balance 1400 / 2850 1000 / 1000 Intake: Oral 400 / 850 IV 1000 / 2000 1000 / 1000 Lactated Ringer's Solution 1, 1000 / 1000 1000 / 1000 000 ml @ 100 mls/hr IV .Q10H ZAYDA Rx#:[id number] Other: # Voids 1 High-sensitivity troponin since admission [phone] EKG on admission showed normal sinus rhythm, left ventricle hypertrophy with ST- T abnormalities Limited echo showed normal left ventricle systolic function without wall motion abnormalities, ejection fraction 55% Assessment and Plan Assessment and Plan (1) Elevated troponin: Assessment and Plan: Most likely type II/demand ischemia due to acute renal insufficiency. Patient did not have chest pain. Echo shows normal left ventricular systolic function without segmental wall motion abnormalities (2) Acute renal insufficiency: Assessment and Plan: Prerenal. Improving with hydration (3) Left ventricular hypertrophy: (4) Peripheral vascular disease: Assessment and Plan: Associated with claudication (5) Abdominal pain: Assessment and Plan: It resolved (6) Hypertension: (7) Hyperlipidemia: (8) Prediabetes: (9) Tobacco abuse: Assessment and Plan: Half pack/day since she was 15-year-old (10) Obesity: (11) Sleep apnea syndrome: Assessment and Plan: Could not tolerate CPAP (12) Asthma: (13) COPD (chronic obstructive pulmonary disease) with acute bronchitis: Plan Continue current management including hydration with IV fluids with close monitoring of renal function. Also continue aspirin, Plavix, atorvastatin, and metoprolol As mentioned above I think her troponin elevation is due to acute renal insufficiency. But given the patient many risk factors for coronary artery disease I think the best approach is to proceed with Lexiscan stress test. I discussed that in details with patient and all her questions were answered. She was concerned last time about side effects of Lexiscan. She cannot do treadmill stress test due to claudication. We will do the Lexiscan with slow walking to help preventing side effects of the medication. Patient is agreeable. Will schedule it for tomorrow The patient was counseled regarding the importance of smoking cessation to improve her long-term prognosis. Different options were discussed. Also other risk factors including hypertension and hyperlipidemia as well as pr ediabetes should be under control and that was also discussed with her. The patient advised that she needs to follow a low calorie low-carb diet in order to lose weight Patient follows with vascular surgery regarding peripheral vascular disease
--- NOTE | 2024-05-22 19:52 | CA_ITS ---
Patient Name: SHAHLA THAPA MR#: [id number] : 1980 Exam Date: 05/22/2024 Ordering Doctor: DR Frandy Mendez . ECHOCARDIOGRAM REPORT PROCEDURE: CA ECHO LIMITED INDICATIONS: elevated trop, hypertension, diabetes COMPARISON: None. DESCRIPTION: Limited ECHOCARDIOGRAM Real-time transthoracic echocardiography with 2D and M-mode performed. QUALITY: Limited echocardiogram per physician order. Technically difficult due patient's condition. LEFT VENTRICLE: Normal chamber size. Normal left ventricular wall thickness. LV EF: Global left ventricular systolic function is difficult to assess but appears preserved; visually estimated ejection fraction is 55%. Unable to assess regional wall motion abnormalities. LEFT ATRIUM: Appears normal in size. RIGHT ATRIUM: Appears normal in size. RIGHT VENTRICLE: Poorly seen; appears normal in size and systolic function. TRICUSPID VALVE: Poorly visualized. MITRAL VALVE: Poorly visualized. AORTIC VALVE: Not well visualized. . PULMONIC VALVE: Not well visualized. PERICARDIUM: Anterior free space; trivial effusion versus fat pad. IVC: Not well visualized. CONCLUSION: 1. Global left ventricular systolic function is difficult to assess but appears preserved; visually estimated ejection fraction is 55% 2. The right ventricle is poorly seen; it appears normal in size and systolic function 3. Valvular structures are poorly seen 4. Anterior free space; trivial effusion versus fat pad A limited echocardiogram was performed Adult Echocardiography Procedure Report Left Ventricle LVEDD (3.7 - 5.6 cm): 3.44 cm LVESD (2.2 - 4.0 cm): 2.22 cm LVIVS thickness (0.6 - 1.2 cm): 1.01 cm LVPW thickness (0.5 - 1.0 cm): 1.13 cm LVOT Diameter 2.21 cm Left Atrium Left Atrium Systolic Dimension: 4.06 cm Mitral Valve Right Ventricle Aorta AO Root Diam: 3.04 cm Aortic Valve Tricuspid Valve Pulmonic Valve Right Atrium Dictated by: Marivel Fan M.D. on 05/22/2024 at 14:30 Approved by: Marivel Fan M.D. on 05/22/2024 at 14:34
[2024-05-23] VITALS (90 sets, daily range): BP systolic 99–113; BP diastolic 53–68; PULSE 84–106; TEMP 36.2–37.4; O2SAT 90–98
[2024-05-23] MEDS: IPRATROPIUM/ALBUTEROL SULFATE 3 ML AMPUL.NEB IH ×3 (05:20→22:24)
[2024-05-23 06:04] LABS: Basophils Percent Auto 0.3 % (0.2-2.0); Eosinophils Absolute Auto 0.1 10^3/uL (0.0-0.7); Eosinophils Percent Auto 1.9 % (0.9-7.0); Hematocrit 30.7 % (36.0-48.0); Hemoglobin 10.1 g/dL (12.0-16.0); Immature Granulocytes Abs Auto 0.01 10^3/uL (0.00-0.03); Immature Granulocytes Pct Auto 0.2 % (0.0-0.5); Lymphocytes Absolute Auto 1.2 10^3/uL (1.2-3.8); Lymphocytes Percent Auto 20.2 % (20.5-60.0); Mean Corpuscular HGB Conc 32.9 g/dL (29.9-35.2); Mean Corpuscular Volume 88.2 fL (81.0-99.0); Mean Platelet Volume 10.4 fL (9.5-13.5); Monocytes Absolute Auto 0.5 10^3/uL (0.3-0.8); Neutrophils Percent Auto 68.4 % (43.0-75.0); Platelet Count 210 10^3/uL (150-450); Red Blood Count 3.48 10^6/uL (4.20-5.40); Red Cell Distribution Width 14.6 % (11.0-15.0); White Blood Count 5.8 10^3/uL (4.0-11.0)
[2024-05-23 06:29] LABS: Alanine Aminotransferase 31 U/L (14-59); Alkaline Phosphatase 91 U/L (46-116); Aspartate Amino Transferase 29 U/L (15-37); BUN Creatinine Ratio 13.9; Bilirubin Total 0.4 mg/dL (0.2-1.0); Calcium 8.6 mg/dL (8.5-10.1); Carbon Dioxide 26.9 mmol/L (21.0-32.0); Chloride 105 mmol/L (98-107); Estimated GFR (African America 40 (>=60 mL/min/1.73m^2); Estimated GFR (Non-African Ame 33 (>=60 mL/min/1.73m^2); Globulin 3.1 g/dL; Glucose 93 mg/dL (74-106); Magnesium 1.7 mg/dL (1.8-2.4); Potassium 3.9 mmol/L (3.5-5.1); Sodium 138 mmol/L (136-145); Total Protein 6.1 g/dL (6.4-8.2)
[2024-05-23 06:30] LABS: Troponin I High Sensitivity 84.3 pg/mL (4.0-51.3)
[2024-05-23] MEDS: LACTATED RINGER'S SOLUTION 1,000 ML 100 ML IV (07:40)
--- NOTE | 2024-05-23 07:40 | NM_ITS ---
Patient Name: SHAHLA THAPA MR#: [id number] : 1980 Exam Date: 05/23/2024 Ordering Doctor: DR Frandy Mendez . RADIOLOGY REPORT PROCEDURE: NM MARIYA PERF SPECT REST OR STR COMPARISON: None. INDICATIONS: cp TECHNIQUE: Exam Description: Stress Only two day protocol gated SPECT Rest Imagin.3 mCi Tc-99m Cardiolite IV on 04/29/2024 Stress Imaging 26.9 mCi Tc-99m Cardiolite IV on 05/23/2024 Exercise Protocol: 0.4 mg Lexiscan given IV Heart Rate (bpm): Rest: 88 Max: 107 PMHR: 61 Blood Pressure: Rest: 118/70 Max: 138/64 Symptoms: Rest and peak stress ECG findings were pending and the exercise portion of the study was pending per attending physician [facility]. For more details, please see separate cardiac stress test report. FINDINGS: QUALITY OF STUDY: Good PERFUSION DEFECT: LOCATION: Anterior SIZE: Moderate SEVERITY: Mild TYPE: Partially reversible, likely partly due to breast attenuation WALL MOTION: Normal wall motion LV SIZE: 100 mL. TID / TCD: 1.3 LVEF: Calculated EF 57%. SUMMARY: Myocardial perfusion imaging study is abnormal with soft tissue attenuation CONCLUSION: 1. Myocardial perfusion is abnormal with soft tissue attenuation 2. A partially reversible anterior perfusion defect suggestive of ischemia; this may be partly due to breast artifact 3. Transient ischemic dilation is seen; this may represent balanced ischemia and multi-vessel disease or hypertensive heart disease. This is associated with an increased risk for adverse cardiovascular events 4. Global left ventricular systolic function is normal Dictated by: Marivel Fan M.D. on 05/23/2024 at 14:00 Approved by: Marivel Fan M.D. on 05/23/2024 at 14:08
[2024-05-23] MEDS: LORAZEPAM 2 MG/ML VIAL 0.5 MG IV (07:42)
--- NOTE | 2024-05-23 07:46 | P.DS_ITS ---
DS: Providers Provider Date of admission: 05/21/24 23:45 Primary care physician: MILLIE MANDEL Consults: 05/21/24 19:44 Consult to Pharmacy Routine Consulting Provider: Reason for consultation: Please [place] me when Med Rec is Updated Has provider been notified: No Occupational Therapy Eval and Treat Routine Reason for consultation: Only if needed for Rehab Has provider been notified: No Physical Therapy Eval and Treat Routine Reason for consultation: Eval and Treat Has provider been notified: No 05/22/24 Consult to Dietitian Routine Reason for consultation: Poor appetite 05/22/24 07:53 Consult to Cardiology Routine Reason for consultation: elevated trop Has provider been notified: No DS: Diagnosis Discharge Diagnosis (1) Elevated troponin: (2) Acute renal insufficiency: (3) Left ventricular hypertrophy: (4) Peripheral vascular disease: (5) Abdominal pain: (6) Hypertension: (7) Hyperlipidemia: (8) Prediabetes: (9) Tobacco abuse: (10) Obesity: (11) Sleep apnea syndrome: (12) Asthma: (13) COPD (chronic obstructive pulmonary disease) with acute bronchitis: Plan Admit findings: Sinus tachycardia, mild hypotension secondary to acute bronchitis resulting in acute NSTEMI type II Acute bronchitis-check COVID and flu, check chest x-ray, on antibiotics for the possible UTI, add aerosol treatments Acute NSTEMI type II-consult cardiology, check echocardiogram, she was due to have a stress test and patient declined at that time, with elevated troponins, consideration for heart cath, plan per cardiology Acute exacerbation of COPD secondary to the acute bronchitis-aerosol treatments Hypomagnesemia-supplement Acute UTI-culture pending, IV antibiotics Iron deficiency anemia-monitor daily Morbid obesity-monitor and diet control Elevated usgo-[id number]-withrn lab, doubt , patient with tubal ligation Admission status: Patient admitted to the intensive care unit on the unit with acute NSTEMI type II secondary to acute bronchitis and possible UTI, consult cardiology, medically necessary treatment will span 2 midnights. Inpatient status ? DS: Summary Hospital Course Hospital Course: Patient presented to the emergency room for with right-sided abdominal pain, workup for that was unremarkable but patient also has significant cough, chest x-ray done after admission showed bilateral lower lobe pneumonia exam was consistent with that at the time that I saw her as well, this bilateral pneumonia led to acute NSTEMI type II, consultation cardiology recommended stress test, she does have an abnormal myocardial perfusion scan last month but did not follow through with the electrical part of the stress test. Lung exam still today shows significant rhonchi but still no hypoxia, some hypotension likely related to medications, the plan currently is to complete the Lexiscan and then based on results of Lexiscan possible transfer if abnormal versus discharge to home if normal and patient remains stable post stress test. Pt failed stress test - transferring to [facility] Patient also with acute kidney injury stage II, that is improved down to creatinine 1.66 BNP is slightly elevated today likely related to fluids for the above. Time Spent with Patient Time attestation: Total time spent providing and/or coordinating discharge services: Exam Constitutional Vital Signs, click to edit/add: Last Vital Signs Temp 97.1 F L 05/23/24 04:44 Pulse 87 05/23/24 06:08 Resp 18 05/23/24 05:20 BP 110/65 05/23/24 04:44 Pulse Ox 93 L 05/23/24 05:20 O2 Del Method Room Air 05/23/24 05:20 Documenting provider has reviewed patient's vital signs: yes Common normals: no apparent distress Chest Common normals: inspection of chest normal Respiratory Auscultation: rales and rhonchi (Unchanged from previous day) Cardio Common normals: regular rate, regular rhythm and no murmurs GI Common normals: soft to palpation; negative for Normal to inspection, nondistended, normoactive bowel sounds present (Obese) and tender (Mild right upper quadrant tenderness) DS: Data Data Completed and Pending Labs on day of discharge: Labs from last 24 hours 05/23/24 05/22/24 05/22/24 04:38 08:05 04:49 WBC 5.8 RBC 3.48 L Hgb 10.1 L Hct 30.7 L MCV 88.2 MCH 29.0 MCHC 32.9 RDW 14.6 Plt Count 210 MPV 10.4 Neut % (Auto) 68.4 Lymph % (Auto) 20.2 L [place] % (Auto) 9.0 Eos % (Auto) 1.9 Baso % (Auto) 0.3 Neut # (Auto) 4.0 Lymph # (Auto) 1.2 [place] # (Auto) 0.5 Eos # (Auto) 0.1 Baso # (Auto) 0.0 Abs Immat Gran (auto) 0.01 Imm/Tot Granulo (auto) 0.2 Sodium 138 Potassium 3.9 Chloride 105 Carbon Dioxide 26.9 Anion Gap 10.0 BUN 23.0 H Creatinine 1.66 H Est GFR ( Amer) 40 L Est GFR (Non-Af Amer) 33 L BUN/Creatinine Ratio 13.9 Glucose 93 Calcium 8.6 Magnesium 1.7 L Total Bilirubin 0.4 AST 29 ALT 31 Alkaline Phosphatase 91 Troponin I High Sens 84.3 H* NT-Pro-B Natriuret Pep 607.0 H Total Protein 6.1 L Albumin 3.0 L Globulin 3.1 Albumin/Globulin Ratio 1.0 HCG, Quant 6 Influenza Type A Ag Negative Influenza Type B Ag Negative SARS-CoV-2 Ag (CV2AG) Negative Discharge Plan Discharge Disposition: [facility]
[2024-05-23] MEDS: REGADENOSON 0.4 MG/5 ML SYRINGE IV (09:30)
--- NOTE | 2024-05-23 09:32 | PC.NURSE ---
Nursing Note Cardiac Stress Test Reviewed: Medication, allergies and patient history reviewed. Stress Test: [ x] Patient tolerated stress test well. [ ] Patient unable to tolerate walking on treadmill. Switched to Lexiscan stress test. [x ] No chest pain noted per patient [ ] Chest pain that resolved prior to leaving stress lab. [x ] No dyspnea noted. [ ] Dyspnea that resolved prior to leaving stress lab. [ x] Patient left stress lab asymptomatic and hemodynamically stable. [ ] Patient taken to the Emergency Room due to non-resolving symptoms following stress test. [ ] Patient achieved target heart rate. [ ] Patient unable to achieve target heart rate. [ ] Aminophylline administered as reversal agent to Lexiscan (Regadenoson). [ ] Nitro administered. Nursing Comments:Pt tolerated Lexiscan well. NO issues noted. NO symptoms reported per pt.
--- NOTE | 2024-05-23 09:48 | PM.STRESS ---
Stress Test Stress Test Allergies Allergy/AdvReac Type Severity Reaction Status Date / Time ciprofloxacin (From Cipro) Allergy Severe Swelling Verified 05/21/24 13:29 of Lip/Tongue/Throat metronidazole (From Flagyl) Allergy Severe Swelling Verified 05/21/24 13:29 of Lip/Tongue/Throat Penicillins Allergy Severe Swelling Verified 05/21/24 13:29 of Lip/Tongue/Throat Requesting physician: Coral Ku Procedure: Pharmacological Stress Test General Information: Reason for Stress Test: [SOB, palpitations] Cardiac History and Risk Factors: [HTN, dyslipidemia] Resting 12 - Lead Electrocardiogram: Normal sinus rhythm Left ventricular hypertrophy with repolarization abnormalities Inferior-posterior infarct age indeterminate ST T wave abnormalities due to LVH vs ischemia Abnormal resting ECG Stress Test: Protocol: [Lexiscan] Exercise Capacity: [N/A] Blood Pressure Response: [Appropriate] Rhythm: [Sinus] ST - Response: [No changes] Patient Response: [Headache] EKG during infusion and recovery: no changes from baseline ECG Interpretation: 1. Uninterpretable Lexiscan ECG due to abnormal resting ECG 2. Nuclear images to be read, interpreted and reported separately
[2024-05-23] MEDS: CHOLECALCIFEROL (VITAMIN D3) 25 MCG/1,000 UNITS TABLET 50 MCG PO (11:43)
[2024-05-23] MEDS: ATORVASTATIN CALCIUM 40 MG TABLET PO (11:44)
[2024-05-23] MEDS: BUPROPION HCL 150 MG XL TABLET 24H 300 MG PO (11:45)
[2024-05-23] MEDS: PANTOPRAZOLE SODIUM 40 MG TABLET.DR PO ×2 (11:45→20:18)
[2024-05-23] MEDS: MAGNESIUM OXIDE 400 MG TABLET PO ×2 (11:45→20:18)
[2024-05-23] MEDS: ASPIRIN 81 MG TABLET.DR PO (11:45)
[2024-05-23] MEDS: ISOSORBIDE MONONITRATE 30 MG TAB.ER.24H PO (11:45)
[2024-05-23] MEDS: CLOPIDOGREL BISULFATE 75 MG TABLET PO (11:45)
[2024-05-23] MEDS: AZITHROMYCIN 500 MG in 0.9 % SODIUM CHLORIDE 250 ML 250 MG IV (11:46)
[2024-05-23] MEDS: NYSTATIN 15 GM POWDER 1 APPLIC TOPICAL ×2 (11:47→20:18)
[2024-05-23] MEDS: SULFAMETHOXAZOLE/TRIMETHOPRIM 800-160 MG TABLET 1 TAB PO ×2 (11:49→20:18)
--- NOTE | 2024-05-23 12:15 | PT.DAILY ---
Physical Therapy Daily Note PT Daily Note/Assess Start: 05/23/24 12:13 Freq: Status: Active Protocol: Document 05/23/24 11:20 CHELA (Rec: 05/23/24 12:15 CHELA [id number]) Visit Not Completed Visit Not Completed Visit Not Completed Pt out of room Due to: Other Reason Visit Patient at stress test, unavailable for PT RX. Per Not Completed nursing patient is up at cha in room and probable DC depending on results of stress test. Physical Therapy Daily Note/Assessment Time In/Time Out Time In 11:20 Time Out 11:20 GG. Functional Abilities and Goals-Complete for Swing Bed Patients Only [id number]. Self-Care [id number]. Mobility
[2024-05-23] MEDS: LORAZEPAM 1 MG TABLET PO (13:07)
[2024-05-23] MEDS: GABAPENTIN 300 MG CAPSULE 600 MG PO ×2 (13:07→20:17)
[2024-05-23] MEDS: NICOTINE 21 MG PATCH.TD24 TD (15:21)
[2024-05-23] MEDS: HYDROXYZINE PAMOATE 25 MG CAPSULE 75 MG PO (20:17)
[2024-05-23] MEDS: BENZONATATE 100 MG CAPSULE 200 MG PO (20:18)
[2024-05-23] MEDS: lidocaine HCL 15 ML, MAG HYDROX/ALUMINUM HYD/SIMETH 30 ML, diphenhydrAMINE HCL 25 MG PO (20:30)
[2024-05-24 00:04] VITALS: BP 110/55; PULSE 93; TEMP 36.4; O2SAT 100; O2SAT 97
[2024-05-24] MEDS: LORAZEPAM 1 MG TABLET PO (00:10)
[2024-05-24 00:12] VITALS: BP 93/50; PULSE 97; O2SAT 98
[2024-05-24 02:33] VITALS: PULSE 91; O2SAT 97
[2024-05-24 04:04] VITALS: BP 102/48; PULSE 85; TEMP 36.7; O2SAT 93; O2SAT 97
== END 2024-05-24 04:35 | disposition short-term general hospital (02) | DRG 139 ==
LOC: ER 16:38 → ICU 05-22 07:25
PROVIDERS: Admitting Provider Family Medicine; Emergency Provider Emergency Medicine; PCP Nurse Practitioner Family; Visit Provider Family Medicine
DX: J18.9 Pneumonia, unspecified organism (principal); I21.A1 Myocardial infarction type 2; J44.1 Chronic obstructive pulmonary disease with (acute) exacerbation; J44.0 Chronic obstructive pulmonary disease with (acute) lower respiratory infection; J20.9 Acute bronchitis, unspecified; N17.9 Acute kidney failure, unspecified; N39.0 Urinary tract infection, site not specified; E83.42 Hypomagnesemia; D50.9 Iron deficiency anemia, unspecified; E66.01 Morbid (severe) obesity due to excess calories; I10 Essential (primary) hypertension; E78.5 Hyperlipidemia, unspecified; R73.03 Prediabetes; F17.210 Nicotine dependence, cigarettes, uncomplicated; I73.9 Peripheral vascular disease, unspecified; F25.9 Schizoaffective disorder, unspecified; I73.00 Raynaud's syndrome without gangrene; K21.9 Gastro-esophageal reflux disease without esophagitis; G47.33 Obstructive sleep apnea (adult) (pediatric); F41.9 Anxiety disorder, unspecified; R89.1 Abnormal level of hormones in specimens from other organs, systems and tissues; Z79.02 Long term (current) use of antithrombotics/antiplatelets; Z68.38 Body mass index [BMI] 38.0-38.9, adult; Z79.899 Other long term (current) drug therapy; Z79.82 Long term (current) use of aspirin; Z88.1 Allergy status to other antibiotic agents; Z88.0 Allergy status to penicillin; Z71.6 Tobacco abuse counseling
CPT/HCPCS: 36415; 71046; 74176; 78451; 80053; 81001; 83690; 83735; 83880; 84484; 84702; 84703; 85025; 86850; 86900; 86901; 87804; 87811; 93005; 93017; 93308; 94640; 94667; 94668; 94761; 96361; 96374; 96375; 97110; 97161; 99285; 99406; A9500; J0456; J1885; J2060; J2270; J2405; J2785; J3490; Q0177

== ENCOUNTER 2024-07-16 19:41 | Outpatient (OUT) | payer MEDICAID, SELFPAY | END 2024-07-16 19:42 | disposition home or self-care (01) | LOC: SLEEP 19:41 | PROVIDERS: PCP Nurse Practitioner Family; Visit Provider Nurse Practitioner Family | DX: G47.33 Obstructive sleep apnea (adult) (pediatric) (principal) | CPT/HCPCS: 95810 ==

== ENCOUNTER 2024-08-07 12:02 | Outpatient (OUT) | payer MEDICAID, SELFPAY ==
--- OUTSIDE RECORDS SUMMARY | 2023-11-01 06:15 | XMS_ITS ---
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 * Medical History: Objective: * Vitals: Assessment: Plan: * Treatment: * Billing Information: * Visit Code: * Procedure Codes: * Electronic signature of Matt Pa DDS on 08/07/2024 at 12:06 PM EDT Sign off status: Pending * Provider: Tera Pa DDS Date: 11/01/2023 Generated for Paris vasquez/Farzaneh/Adeolaitting on: 08/07/2024 12:06 PM EDT
--- OUTSIDE RECORDS SUMMARY | 2023-11-02 08:45 | XMS_ITS ---
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 * Medical History: Objective: * Vitals: Assessment: Plan: * Treatment: * Billing Information: * Visit Code: * Procedure Codes: * Electronic signature of Matt Pa DDS on 08/07/2024 at 12:07 PM EDT Sign off status: Pending * Provider: Tera Pa DDS Date: 11/02/2023 Generated for Paris vasquez/Farzaneh/Adeolaitting on: 08/07/2024 12:07 PM EDT
--- OUTSIDE RECORDS SUMMARY | 2024-07-01 05:02 | XMS_ITS ---
Author Organization [facility] in [place] Address [address] [place] [address] Care Team Providers Care Sonar Watchstander Name Role Phone JOSETTE MENDOZA CNP Primary Care Provider [phone] Josette Mendoza Unavailable [phone] REASON FOR VISIT refill Medications Medication SIG (Take, Route, Frequency, Duration) Notes Start Date End Date Status Vitamin D 50 MCG (1999) 1 tablet Oral ly Once a day for 30 days 06/06/2023 Active Encounters Encounter Location Date Provider Diagnosis [facility] [address] [place] [address] 07/01/2024 Josette Mendoza Plan Of Treatment Medication Medication Name Sig Start Date Stop Date Notes Vitamin D 50 MCG (1999 UT) 1 tablet Oral ly Once a day for 30 days 06/06/2023 Next Appt Details Provider Name:Josette williamson, 12/11/2024 09:00:00 AM, [address] [place], [address], Progress Notes * Laura SAUNDERS ADOB:1980 (44 yo F)Acc No.[id number]:07/01/2024 Patient: Laura COVARRUBIAS :1980 A ge:44 Y S ex:Female Address:[address] [place], [address] * Refills Refill Vitamin D Tablet, 50 MCG (1999), Orally, 30, 1 tablet, Once a day, 30 days, Refills=11 * true * Date: Generated for Paris vasquez/Farzaneh/Ruben on: 0 08/07/2024 12:07 PM EDT
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
--- OUTSIDE RECORDS SUMMARY | 2024-08-06 09:00 | XMS_ITS | Encounter Summary ---
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 Role Phone Josette Mendoza CNP Primary Care Provider [phone] Encounter Details Date Type Department Care Team (Late st Contact Info) Description 08/06/2024 9:00 AM EDT Office Visit [facility] [address] [place] [address] Cornell Peng MD [address] [place] [phone] WPW (Thghi-Gwlsyymnq-Xys te syndrome) Social History Tobacco Use Types Packs/Day Years Used Date Smoking Tobacco: Every Day Cigarettes Smokeless Tobacco: Never Alcohol Use Standard Drinks/Week Comments Not Currently 0 (1 standard drink = 0.6 oz pur e alcohol) former [facility] Utilities Answer Date Recorded In the past 12 months has Thounds, gas, oil, or water e-Tag threatened to shut off services in your home? No 05/24/2024 Humiliation, Afraid, Rape, and Kick questionnair e Answer Date Recorded Within the last year, have y ou been afraid of your partner or ex-partner? No 05/24/2024 Emotionally Abused Not on file 05/24/2024 Physically Abused Not on file 05/24/2024 Sexually Abused Not on file 05/24/2024 Overall Financial Resource Strain (CARDIA) Answe r Date Recorded How hard is it for you to pa y for the very basics like food, housing, medical care, and heating? Not hard at all 05/24/2024 Transportation Answer Date Recorded In the past 12 months, has l ack of transportation kept you from medical appointments or from getting medications? No 05/24/2024 Lack of Transportation (Non-Medical) Not on file 05/24/2024 Housing Stability Vital Sign Answer Denis e Recorded In the last 12 months, was t here a time when you were not able to pay the mortgage or rent on time? No 05/24/2024 Number of Times Moved in the Last Year Not on fi le 05/24/2024 At any time in the past 12 m [facility], were you homeless or living in a snf (including now)? No 05/24/2024 Hunger Vital Sign Answer Date Recorded Within the past 12 months, y ou worried that your food would run out before you got the money to buy more. Never true 05/25/19 25 Ran Out of Food in the Last Year Not on file 05/24/2024 Sex and Gender Information Value Date Recorded Sex Assigned at Not on file Gender Identity Not on file Sexual Orientation Not on file documented as of this encounter Last Filed Vital Signs Vital Sign Reading Time Taken Comments Blood Pressure 101/70 08/06/2024 8:54 AM EDT Pulse 91 08/06/2024 8:54 AM EDT Temperature - - Respiratory Rate - - Oxygen Saturation 97% 08/06/2024 8:54 AM EDT Inhaled Oxygen Concentration - - Weight 109 kg (240 lb) 08/06/2024 8:54 AM EDT Height 167.6 cm (5' 6 ) 08/06/2024 8:54 AM EDT Body Mass Index 38.74 08/06/2024 8:54 AM EDT documented in this encounter Progress Notes * Cornell Peng MD - 08/06/2024 9:00 AM EDT Images from the original note were not included. 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 She had a sleep study done which was positive for sleep apnea. She she is here to discuss about possible EP study and ablation. HPI: Laura Arias is a 44 y.o. year old here today for a follow up. Patient started Toprol. Patientstate she hasn't noticed heart palpitation since starting the Toprol. Patient complains of [place], lightheaded and fatigue. Patient denies chest pain, leg swelling. Patient states she had a sleep study that was positive for sleep apnea and will be doing the titration part in a couple of weeks. PMH: Past Medical History: Diagnosis Date Alcohol abuse GERD (gastroesophageal reflux disease) Hypertension PAD (peripheral artery disease) Palpitations Raynaud's disease PSH: Past Surgical History: Procedure Laterality Date CARDIAC CATHETERIZATION CARPAL TUNNEL RELEASE SECTION, CLASSIC CHOLECYSTECTOMY CYST REMOVAL SH: Social Determinants of Health Tobacco Use: High Risk (08/06/2024) Patient History Smoking Tobacco Use: Every Day Smokeless Tobacco Use: Never Passive Exposure: Not on file Alcohol Use: Not on file Financial Resource Strain: Low Risk (05/24/2024) Overall Financial Resource Strain (CARDIA) Difficulty of Paying Living Expenses: Not hard at all Food Insecurity: No Food Insecurity (05/24/2024) Hunger Vital Sign Worried About Running Out of Food in the Last Year: Never true Ran Out of Food in the Last Year: Not on file Transportation Needs: No Transportation Needs (05/24/2024) Transportation Lack of Transportation (Medical): No Lack of Transportation (Non-Medical): Not on file Physical Activity: Inactive (05/31/2020) Received from [employer], [employer] Exercise Vital Sign Days of Exercise per Week: 0 days Minutes of Exercise per Session: 0 min Stress: No Stress Concern Present (05/31/2020) Received from [employer] [place] [facility] Occupational [employer] - Occupational Stress Questionnaire Feeling of Stress : Not at all Social Connections: Socially Isolated (05/31/2020) Received from [employer], [employer] Social Connection and Isolation Panel [NHANES] Frequency of Communication with Friends and Family: Never Frequency of Social Gatherings with Friends and Family: Never Attends [employer] Services: Never Active Member of Clubs or Organizations: No Attends Club or Organization Meetings: Never Marital Status: Intimate Partner Violence: Unknown (05/24/2024) Humiliation, Afraid, Rape, and Kick questionnaire Fear of Current or Ex-Partner: No Emotionally Abused: Not on file Physically Abused: Not on file Sexually Abused: Not on file Depression: At risk (07/03/2023) Received from [employer], [employer] [facility] PHQ-2 Total Score: 10 Housing Stability: Low Risk (05/24/2024) Housing Stability Vital Sign Unable to Pay for Housing in the Last Year: No Number of Times Moved in the Last Year: Not on file Homeless in the Last Year: No Utilities: Not At Risk (05/24/2024) [facility] Utilities Threatened with loss of utilities: No Health Literacy: Not on file Allergies: Allergies Allergen Reactions Ciprofibrate Swelling Ciprofloxacin Other Facial edema - per pt Metronidazole Other Flu like s/s Facial edema - per pt Penicillins Other Facial edema - per pt Weight: 109kg Visit Vitals BP 101/70 (BP Location: Right arm, Patient Position: Sitting) Pulse 91 Ht 1.676 m (5' 6 ) Wt 109 kg (240 lb) SpO2 97% BMI 38.74 kg/m?? Smoking Status Every Day BSA 2.25 m?? Meds: Current Outpatient Medications on File Prior to Visit Medication Sig Dispense Refill albuterol 90 mcg/actuation inhaler Inhale 2 puffs every 6 (six) hours if needed for wheezing. aspirin 81 mg EC tablet 1 tablet Orally Once a day atorvastatin (Lipitor) 40 mg tablet Take 40 mg by mouth in the morning. buPROPion XL (Wellbutrin XL) 300 mg 24 hr tablet Take 300 mg by mouth in the morning. cholecalciferol (Vitamin D-3) 50 MCG (2000 UT) tablet Take by mouth in the morning. clopidogrel (Plavix) 75 mg tablet Take 75 mg by mouth in the morning. gabapentin (Neurontin) 600 mg tablet Take 600 mg by mouth in the morning, afternoon, and at bedtime. levomilnacipran (Fetzima) 20 mg extended release capsule Take 40 mg by mouth in the morning. LORazepam (Ativan) 1 mg tablet Take 1 tablet by mouth every 8 (eight) hours if needed for anxiety. metoprolol succinate XL (Toprol-XL) 50 mg 24 hr tablet Take 1 tablet (50 mg) by mouth once daily asdirected. Do not crush or chew. 90 tablet 3 OLANZapine (ZyPREXA) 5 mg tablet take 1 tablet by mouth three times a day if needed for AGITATION olmesartan-hydrochlorothiazide (BENIcar HCT) 20-12.5 mg tablet Take 1 tablet by mouth if needed. omeprazole (PriLOSEC) [address] capsule Take 40 mg by mouth in the morning and at bedtime. ferrous sulfate 325 (65 Fe) MG tablet Take 325 mg by mouth with breakfast. hydrOXYzine pamoate (Vistaril) 25 mg capsule Take 25 mg by mouth. vilazodone (Viibryd) 10 mg tablet Take 10 mg by mouth with breakfast. vilazodone (Viibryd) 20 mg tablet Take 20 mg by mouth in the morning. with food No current facility-administered medications on file prior to visit. Review of Systems Constitutional: Positive for malaise/fatigue. Cardiovascular: Positive for dyspnea on exertion. Respiratory: Positive for sleep disturbances due to breathing. Neurological: Positive for dizziness. Physical Exam: Constitutional General Appearance: well-nourished, well-developed, appears stated age Level of Distress: comfortable Eyes ALVARO Neck Neck: supple, trachea midline Carotid Arteries: bilateral normal upstroke, no bruits Jugular Veins: normal jugular venous pressure Thyroid: not enlarged Lungs Respiratory Effort: unlabored Chest Exam: normal curvature, no thoracic deformity Auscultation: clear, no wheezing, no rales, no rhonchi Cardiovascular Chest wall: Rate And Rhythm: regular Heart Sounds: normal S1, normal s2, no gallop Systolic Murmur: not heard Diastolic Murmur: not heard Extremities: no cyanosis, no edema, no peripheral signs of emboli Peripheral Pulses Radial Pulse: normal Abdomen Inspection and Palpation: soft, non distended, no bruit, non tender Neurologic Gait: normal gait Labs: @LABRESULTS@ No results found for: CHOLESTEROL TOTAL , HDL , LDL CALC , LDL DIRECT , TRIGLYCERIDES , TSH , T3 TOTAL , T4 TOTAL , THYROID PEROXIDASE AB , BNP EKG: No results found for this or any previous visit (from the past 4464 hour(s)). Echo: 05/22/24 05/23/24 Stress test: Coronary angiogram: 05/24/24 Final Impression: 1) Coronary angiogram reveals diffuse mild CAD, appropriate for optimal medical therapy. Coronary Angiogram: Left main: Patent LAD: the proximal LAD is a large-caliber vessel and is patent. The mid to distal LAD is a small caliber vessel and shows evidence of diffuse atherosclerosis. There is diffuse 30 to 40% stenosis however the diffuse tapering is consistent with significant diffuse atherosclerosis. LCX: Very small vessel, angiographically patent with luminal irregularities RCA: angiographically patent with luminal irregularities. The right SHERRY and PDA are both patent. Diagnostic Imaging: Assessment and Plan: - Palpitations: Patient has done better with beta-blockers but given the concern of the preexcitation would like to see if he can be handled so there is no concern of A-fib and rapid conduction into the ventricle. With this in mind she would like to proceed with the EP study for risk stratificationand possible ablation - SHARI: Recommended sleep apnea treatment - HTN: Ct home meds I discussed the procedure in length with figures to the patient and went over the risks, benefits and alternatives of the EP study and ablation. I stated that the risk can be classified as major and minor complications. The minor include discomfort over the incision site, erythema. The major complications include vessel injury consisting of AV fistula, pseudoaneurysm, thromboembolism including DVT stroke systemic emboli endorgan damage and even . We also discussed the possibility of catheter induced perforation leading to pericardial effusion or tamponade which may or may not require surgical intervention as well as the possibility of valve damage from entrapment leading to valve regurg itation. Based on the type of arrhythmia, the risk would vary. If AVNRT, then ablation can result in a 1% need of AVN damage requiring pacemaker and if Atrial flutter, risk of coronary vessel injury and STEMI, if Atach, then depending on the site of ablation. I stated that if the foci is next to AVN, then I would avoid ablation and resort to medications. Overall the risk of these complications ranged anywhere from 1-5%. Patient verbalized understanding and have agreed to proceed with the procedure Cornell Peng MD Cardiac Electrophysiology [facility] documented in this encounter Plan of Treatment Scheduled Orders Name Type Priority Associated Diagnoses Orde r Schedule CBC and differential Lab Routine WPW (Vuhsv-Tpubcsezg-Tljjw syndrome) Expected: 08/06/2024 (Approximate), Expires: 08/06/2025 Basic metabolic panel Lab Routine WPW (Yzucc-Xnylnquvc-Yaxxj syndrome) Expected: 08/06/2024 (Approximate), Expires: 08/06/2025 Scheduled Procedures Name Priority Associated Diagnoses Date/Ti me EP STUDY SVT (supraventricular tachycardia) ABLATION SVT ATRIAL TACHYCARDIA SVT (supraventricular tachycardia) documented as of this encounter Visit Diagnoses Diagnosis WPW (Lrykl-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
--- OUTSIDE RECORDS SUMMARY | 2024-08-07 12:06 | XMS_ITS | Clinical Summary ---
Author Organization [employer] tem Address [facility] [id number] [address] [place] [address] Care Team Providers Care Stringer Up Soldering Machine Name Role Phone Josette Mendoza APRN-TECHNICAL MANAGER Primary Care Provider Allergies Active Allergy Reactions Criticality Noted Date Comments Ciprofibrate Facial Swelling High 10/12/2018 Ciprofloxacin 11/01/2012 Metronidazole Other (See Comments) 10/12/2018 Flu like s/s Penicillin G Facial Swelling High 10/12/2018 Medications omeprazole (PriLOSEC) 40 mg capsule Take 1 capsule (40 mg total) by mouth in the morning. Active traZODone (DESYREL) 50 mg tablet Take 4 tablets (200 mg total) by mouth nightly. Active acetaminophen (TYLENOL) 500 mg tablet Take 1 tablet (500 mg total) by mouth every 6 (six) hours as needed for pain. 30 tablet 1 Active levomilnacipra n (FETZIMA) 80 mg capsule,extend ed release 24 hr Take 120 mg by mouth in the morning. Active gabapentin (NEURONTIN) 400 mg capsule Take 1 capsule (400 mg total) by mouth 3 (three) times a day. Active naltrexone (REVIA) 50 mg tablet Take 1 tablet (50 mg total) by mouth in the morning. 3 Active OLANZapine (ZyPREXA) 10 mg tablet Take 1 tablet (10 mg total) by mouth as needed. 3 Active olmesartan (BENICAR) 20 mg tablet Take 1 tablet (20 mg total) by mouth in the morning. 3 Active albuterol (PROVENTIL HFA;VENTOLIN HFA) 90 mcg/actuation inhaler Inhale 2 puffs every 6 (six) hours as needed for wheezing. Active ibuprofen (MOTRIN) 800 mg tablet Take 1 tablet (800 mg total) by mouth every 6 (six) hours as needed for pain. 30 tablet 3 Active olmesartan-hyd roCHLOROthiazi de (BENICAR HCT) 20-12.5 mg per tablet take 1 tablet by mouth once daily Oral for 90 days Active mirtazapine (REMERON) 7.5 mg tablet 1 tablet at bedtime Orally for 30 days Active VivitroL 380 mg suspension,ext ended rel recon 1 injection Intramuscular once monthly for 30 days Active aspirin 81 mg 1 tablet Orally Once a day 90 tablet 3 4 Active clopidogreL (PLAVIX) 75 mg tablet Take 1 tablet (75 mg total) by mouth in the morning. 30 tablet 12 4 Active atorvastatin (LIPITOR) 40 mg tablet Take 1 tablet (40 mg total) by mouth in the morning. 4 Active cholecalcifero l, vitamin D3, 2,000 units tablet Take by mouth daily. 4 Active buPROPion XL (WELLBUTRIN XL) 150 mg 24 hr tablet Take 1 tablet (150 mg total) by mouth every morning. Active amitriptyline (ELAVIL) 50 mg tablet Take 1 tablet (50 mg total) by mouth nightly. 75 mg 4 Active FeroSuL 325 mg (65 mg iron) tablet Take 1 tablet (325 mg total) by mouth 3 (three) times a week. Active olmesartan-hyd roCHLOROthiazi de (BENICAR HCT) 20-12.5 mg per tablet Take 1 tablet by mouth in the morning. 4 Active clopidogreL (PLAVIX) 75 mg tablet Take 1 tablet (75 mg total) by mouth in the morning. 90 tablet 4 5 Active aspirin 81 mg chewable tablet Chew 1 tablet (81 mg total) and swallow in the morning. 90 tablet 4 5 Active atorvastatin (LIPITOR) 40 mg tablet Take 1 tablet (40 mg total) by mouth in the morning. 90 tablet 4 5 Active clopidogreL (PLAVIX) 75 mg tablet TAKE 1 TABLET BY MOUTH EVERY MORNING 30 tablet 7 5 Active Active Problems Problem Noted Date Diagnosed Date Severe claudication 08/31/2023 Assessment & Plan (03/07/2024 10:16 AM EST): Continue aspirin Plavix statin. Smoking cessation. Continue walking. Assessment & Plan (08/31/2023 9:04 AM EDT): Aspirin Plavix and statin Supervised walking program Smoking cessation Follow-up and 3 months. Claudication 05/18/2023 Assessment & Plan (11/30/2023 9:01 AM EDT): Best medical therapy with aspirin and Plavix and statin. Supervised walking program. Smoking cessation. Blue toe syndrome of left lower extremity 2023 Assessment & Plan (03/07/2024 10:17 AM EST): Is significantly resolved with very mild residual discoloration of the left great toe.We will continue aspirin Plavix and statin Abnormal CT scan 05/18/2023 Hx of abnormal cervical Pap smear 06/22/2022 Overview (06/22/2022): ASCUS / + other high risk hpv 10/23/2018 Irritable bowel syndrome wit h both constipation and diarrhea 06/22/2022 History of biliary stent insertion 04/23/2021 06/22/2022 Gastroesophageal reflux disease without esophagi tis 04/04/2021 06/22/2022 Abnormal stress test 06/26/2020 Overview (06/26/2020): Added automatically from request for surgery [id number] Obesity (BMI 35.0-39.9 without comorbidity) 06/04 Abnormal EKG 06/15/2020 Anxiety 11/20/2018 Overview (01/01/2019): Stopped ativan Psychiatrist started her on trazadone . Helping Chronic hypertension 10/23/2018 Overview (01/29/2019): MFM consult Growth Q 4 weeks Twice weekly NST and weekly JOSE MANUEL start at 32 weeks switch coreg to labetalol 200mg BID per consult Dr. Boo History of depression 10/23/2018 Mild intermittent asthma without complication Cigarette smoker motivated to quit 10/23/2018 Overview (11/20/2018): quit Assessment & Plan (03/07/2024 10:16 AM EST): Counseled on smoking cessation for 3 minutes she is willing to quit Assessment & Plan (11/30/2023 9:01 AM EDT): Counseled on smoking cessation at length Assessment & Plan (08/31/2023 9:04 AM EDT): Counseled on smoking cessation at least 4 minutes. Encounters Date Type Department Care Team Description 06/19/2024 Refill [facility] [address] [place] [phone] Stephanie Webster MD from Last 3 Months Immunizations Immunization Administration Dates Next Due Influenza, Injectable, quadr ivalent (PF) 01/29/2019 MMR 05/15/2019(Deferred: Other - Immunity),05/14/2019(Deferred: Other) Tdap 05/15/2019(Deferred: Other - Given in office this 03/12/2019),03/22/2019 Varicella 05/15/2019(Deferred: Other - Immunity),05/14/2019(Deferred: Other) Family History Medical History Relation Name Comments Alcohol abuse Maternal Grandfather Pneumonia Maternal Grandmother Cancer Mother lung, bladder Hypertension Mother Stroke Mother Breast cancer Neg Hx Ovarian cancer Neg Hx Pancreatic cancer Neg Hx Prostate cancer Neg Hx Uterine cancer Neg Hx Relation Name Status Comments Father Other father unknown Maternal Grandfather Maternal Grandmother Mother Alive lung cancer judy dder cancer nose cancer Paternal Grandfather Other Paternal Grandmother Other Social History Tobacco Use Types Packs/Day Years Used Date Smoking Tobacco: Every Day Cigarettes 1 28.4 Started: 1996 Smokeless Tobacco: Never Tobacco Cessation:Ready to Q uit: Not Asked; Counseling Given: Not Answered Comments:using nicorette occasionally Alcohol Use Standard Drinks/Week Comments Not Currently 0 (1 standard drink = 0.6 oz pur e alcohol) former abuser Social Connection and Isolation Panel [NHANES] A nswer Date Recorded In a typical week, how many times do you talk on the phone with family, friends, or neighbors? Never 05/31/2020 How often do you get together with friends or re latives? Never 05/31/2020 How often do you attend orthodoxy or religion serv ices? Never 05/31/2020 Do you belong to any clubs o r organizations such as orthodoxy groups, unions, fraternal or athletic groups, or school groups? No 05/31/2020 How often do you attend meet ings of the clubs or organizations you belong to? Never 05/31/2020 Are you , , di vorced, , never , or living with a partner? 05/31/2020 Overall Financial Resource Strain (CARDIA) Answe r Date Recorded How hard is it for you to pa y for the very basics like food, housing, medical care, and heating? Not hard at all 05/31/2020 PHQ-2 Answer Date Recorded Total Score 10 07/03/2023 [facility] - Occupational Stress Questionnaire Answer Date Recorded Do you feel stress - tense, restless, nervous, or anxious, or unable to sleep at night because your mind is troubled all the time - these days? Not at all 05/31/2020 Exercise Vital Sign Answer Date Recorde d On average, how many days pe r week do you engage in moderate to strenuous exercise (like a brisk walk)? 0 days 05/31/2020 On average, how many minutes do you engage in exercise at this level? 0 min 05/31/2020 PRAPARE - Transportation Answer Date Re corded In the past 12 months, has l ack of transportation kept you from medical appointments or from getting medications? No 05/05 In the past 12 months, has l ack of transportation kept you from meetings, work, or from getting things needed for daily living? No 05/31/2020 [place] Depression Scale Answer Date Recorded [place] Depression Scale Total 11 05/19/2019 The thought of harming myself has occurred to me . Never 05/19/2019 Childcare Answer Date Recorded Do problems getting child ca re make it difficult for you to work or study? No 05/31/2020 Employment Answer Date Recorded Do you need help finding a [facility] career center and/or a training program? No 05/31/2020 Hunger Screening Answer Date Recorded Within the past 12 months we worried whether our food would run out before we got money to buy more. Never True 03/07/2024 Within the past 12 months th e food we bought just didn't last and we didn't have money to get more. Never True 03/07/2024 Purpose - Life Answer Date Recorded I have a purpose and direction in my life. Stron gly Agree 05/31/2020 Comments No Sex and Gender Information Value Date Recorded Sex Assigned at Not on file Legal Sex Female 12:03 PM EDT Gender Identity Not on file Sexual Orientation Not on file Last Filed Vital Signs Vital Sign Reading Time Taken Comments Blood Pressure 156/88 03/07/2024 10:01 AM EST Pulse 61 03/07/2024 10:01 AM EST Temperature 36.1 C (97 F) 03/07/2024 10:01 AM EST Respiratory Rate 20 03/07/2024 10:01 AM EST Oxygen Saturation 92% 03/07/2024 10:01 AM EST Inhaled Oxygen Concentration - - Weight 111.1 kg (245 lb) 03/07/2024 10:01 AM EST Height 167 cm (5' 5.75 ) 03/07/2024 10:01 AM EST Body Mass Index 39.85 03/07/2024 10:01 AM EST Plan of Treatment Health Maintenance Due Date Last Done Comments Tobacco Counseling 1980 Mammogram 06/25/2023 06/24/2022 Adult BMI Follow Up Plan 07/02/2024 07/03/2023 Depression Screening 07/02/2024 07/03/2023, 05/19/19 20 Influenza Vaccine 11/04/2024 01/29/2019 Tobacco Screening 11/29/2024 11/30/2023 Adult BMI Screening 03/07/2025 03/07/2024 Pap Smear 06/22/2025 06/22/2022, 06/04, 08/29/2019, Additional history exists DTaP,Tdap and Td Vaccines (2 - Td or Tdap) 03/22/2029 03/22/2019 Medical Devices Not on file Procedures Procedure Name Priority Date/Time Associated Diagnosis Comments MAMM SCREENING BILATERAL W CAD Routine 06/24/2022 11:47 AM EDT Encounter for screening mammogram for breast cancer HIGH RISK HPV W/HANNAH Routine 06/22/2022 3:17 AM EDT Cervical smear, as part of routine gynecological examination from Last 3 Months or Most Recently Relevant to Health Maintenance Results * Mammography screening bilateral with CAD (06/24/2022 11:47 AM EDT) Anatomical Region Laterality Modality Breast Bilateral Mammography 06/24/2022 11:4 9 AM EDT Narrative 06/24/2022 11:53 AM EDT History: Screening mammogram Technique: Digital mammographic images of both breasts were obtained in CC and MLO projections. Computer-aided detection was utilized. Tomosynthesis was also performed. Comparison: None Findings: Breast Density: There are scattered areas of fibroglandular density. There are small benign calcifications in the medial aspect of both breasts There is no evidence of dominant mass lesion, clustered microcalcifications, or skin thickening in either breast to suggest the presence of malignancy. Impression: Both breasts negative for evidence of malignancy by digital mammography. A screening mammogram in one year is recommended. ACR Category: BIRADS 2 - Benign. Finalized by Nicholas Roe MD on 06/24/2022 11:53 AM 2 b MAMM 1 YR Procedure Note Nicholas Roe MD - 06/24/2022 History: Screening mammogram Technique: Digital mammographic images of both breasts were obtained in CCand MLO projections. Computer-aided detection was utilized.Tomosynthesis was also performed. Comparison: None Findings: Breast Density: There are scattered areas of fibroglandular density. There are small benign calcifications in the medial aspect of both breastsThere is no evidence of dominant mass lesion, clusteredmicrocalcifications, or skin thickening in either breast to suggest thepresence of malignancy. Impression: Both breasts negative for evidence of malignancy by digitalmammography. A screening mammogram in one year is recommended. ACR Category: BIRADS 2 - Benign. Finalized by Nicholas Roe MD on 06/24/2022 11:53 AM 2 b MAMM 1 YR us Mandie Rodriguez THERAPEUTIC SUPPORT STAFF-TECHNICAL MANAGER IMG MAMMOGRAPHY ORDERABL ES Final Result * High risk HPV w/hannah (06/22/2022 3:17 AM EDT) Hpv specimen type ThinPrep 06/23/2022 3:[address] [facility] Hpv 16 Negative Negative^N egative 06/23/2022 2:33 PM EDT [facility] Hpv 18 Negative Negative^N egative 06/23/2022 2:33 PM EDT [facility] Other high risk hpv Negative Negative^N egative 06/23/2022 2:33 PM EDT [facility] Comment: HPV types 31,33,35,39,45,52,56,58,59,66 and 68 DNA were undetectable. THINP 06/22/2022 3:17 AM EDT 06/23/2022 3:20 AM EDT Mandie Rodriguez THERAPEUTIC SUPPORT STAFF-TECHNICAL MANAGER LAB BLOOD ORDERABLES Fin al Result Performing Organization Address City/State/[facility] Co de Phone Number [address] [place] [address] [facility] [address] [place] [address], [address] [place] [address] from Last 3 Months or Most Recently Relevant to Health Maintenance Insurance * Guarantor: Laura Arias Account Type Relation to Patient Date of Phone Billing Address Personal/Family Self 1980 [address] [place] [address] [facility] MEDICAID Advance Directives * Full Code (Latest Code Status on File) Date Activated Date Inactivated Comments 06/01/2020 7:50 AM 06/01/2020 6:49 PM * Full Code Date Activated Date Inactivated Comments 05/23/2019 7:06 PM 05/23/2019 10:15 PM * Full Code Date Activated Date Inactivated Comments 05/13/2019 6:25 AM 05/15/2019 10:12 PM * Full Code Date Activated Date Inactivated Comments 05/02/2019 10:27 PM 05/03/2019 10:38 AM Care Teams Stringer Up Soldering Machine Relationship Specialty Start Date End Date Josette Mendoza, THERAPEUTIC SUPPORT STAFF-TECHNICAL MANAGER [address] [place] [address] PCP - General Family Medicine 08/25/23
--- OUTSIDE RECORDS SUMMARY | 2024-08-07 12:06 | XMS_ITS | Encounter Summary ---
Author Organization [employer] Address [id number] [address] [place] [address] Care Team Providers Care Nitro Worker Name Role Phone Josette Mendoza MOTOR TESTER-SHREDDER OPERATOR Primary Care Provider Encounter Details Date Type Department Care Team (Late st Contact Info) Description 08/30/2023 Orders Only [facility] [address] [place] [address] Stephanie Webster MD [address], [facility] [address] [place] [address] Social History Tobacco Use Types Packs/Day Years Used Date Smoking Tobacco: Every Day Cigarettes 1 28.4 Started: 1998 Smokeless Tobacco: Never Comments:using nicorette occ asionally Alcohol Use Standard Drinks/Week Comments Not Currently [...] Never 05/31/2020 How often do you attend congregational or latter day serv ices? Never 05/31/2020 Do you belong to any clubs o r organizations such as congregational groups, unions, fraternal or athletic groups, or [...] Answer Date Recorded Total Score 10 07/03/2023 [facility] - Occupational Stress Questionnaire Answer Date Recorded [...] things needed for daily living? No 05/31/2020 [place] Depression Scale Answer Date Recorded [place] Depression Scale Total 11 05/19/2019 The thought of harming myself has occurred to me . Never 05/19/2019 Childcare Answer Date Recorded Do problems getting child ca re make it difficult for you to work or study? No 05/31/2020 Employment Answer Date Recorded Do you need help finding a [facility] career center and/or a training program? No 05/31/2020 Hunger Screening Answer Date Recorded Within the past 12 months we worried whether our food would run out before we got money to buy more. Never True 08/31/2023 Within the past 12 months th e food we bought just didn't last and we didn't have money to get more. Never True 08/31/2023 Purpose - Life Answer Date Recorded I have a purpose and direction in my life. Stron gly Agree 05/31/2020 Comments No Sex and Gender Information Value Date Recorded Sex Assigned at Not on file Legal Sex Female 12:03 PM EDT Gender Identity Not on file Sexual Orientation Not on file documented as of this encounter Plan of Treatment Not on file documented as of this encounter Procedures Procedure Name Priority Date/Time Associated Diagnosis Comments VASCULAR CHECKS Routine 05/31/2023 2:52 PM EDT documented in this encounter Results * Vascular checks (05/31/2023 2:52 PM EDT) us Stephanie Webster MD NURSING ASSESSMENTS Final Res ult MANUALLY TRANSCRIBED RESULTS documented in this encounter Visit Diagnoses Not on filedocumented in this encounter Additional Health Concerns Assessment Noted Time PHQ-9 Depression Total Score: 10 024 10:55 AM EDT A Body Mass Index follow-up plan has been documented for the patient 07/03/2023 2:02 PM EDT documented as of this encounter Care Teams Nitro Worker Relationship Specialty Start Date End Date Josette Mendoza, MOTOR TESTER-SHREDDER OPERATOR [address] [place] [address] PCP - General Family Medicine 08/25/23 documented as of this encounter
--- OUTSIDE RECORDS SUMMARY | 2024-08-07 12:06 | XMS_ITS | Patient Health Record ---
Author Organization [facility] in [place] Address [address] [place] [address] Care Team Providers Care Spot Machine Operator Name Role Phone JOSETTE MANDEL CNP Primary Care Provider JOSETTE MANDEL Unavailable [phone] Ga Villeda Unavailable [phone] Noble Mendez Unavailable [phone] Josette Mandel Unavailable [phone] Allergies Allergen (clinical drug ingredient) Drug/Non Drug Allergy documented on EMR Reaction Allergy Type Onset Date Status Substance with penicillin structure and antibacterial mechanism of action (substance) Penicillins (uncoded) swelling Allergy Active Cipro TABS swelling Drug Allergy Active metronidazole Flagyl swelling Drug Allergy Act wilfrid Results Component Value Reference Range Notes BLOOD CULTURE ID PANEL Reviewed date:02/14/2024 10:06:42 AM Interpretation: Performing Lab: Notes/Report: [facility] , CTX-M NOT APPLICABLE NOT DETECTE IMP NOT APPLICABLE NOT DETECTE KPC NOT APPLICABLE NOT DETECTE mcr-1 NOT APPLICABLE NOT DETECTE mecA/C NOT APPLICABLE NOT DETECTE mecA/C and MREJ (MRSA) NOT APPLICABLE NOT DETECTE NDM NOT APPLICABLE NOT DETECTE OXA-48-like NOT APPLICABLE NOT DETECTE Jean Claude/B NOT APPLICABLE NOT DETECTE VIM NOT APPLICABLE NOT DETECTE Source BLOOD Enterococcus faecalis NOT DETECTED NOT DETECTE Enterococcus faecium NOT DETECTED NOT DETECTE Listeria monocytogenes NOT DETECTED NOT DETECTE Staphylococcus spp. NOT DETECTED NOT DETECTE Staphylococcus aureus NOT DETECTED NOT DETECTE Staphylococcus epidermidis NOT DETECTED NOT DETECTE Staphylococcus lugdunensis NOT DETECTED NOT DETECTE Streptococcus spp. NOT DETECTED NOT DETECTE Streptococcus agalactiae NOT DETECTED NOT DETECTE Streptococcus pneumoniae NOT DETECTED NOT DETECTE Streptococcus pyogenes NOT DETECTED NOT DETECTE A. calcoaceticus-baumannii Cpx NOT DETECTED NOT DETECTE Bacteroides fragilis NOT DETECTED NOT DETECTE Enterobacterales NOT DETECTED NOT DETECTE Enterobacter cloacae complex NOT DETECTED NOT DETECTE Escherichia coli NOT DETECTED NOT DETECTE Klebsiella aerogenes NOT DETECTED NOT DETECTE Klebsiella oxytoca NOT DETECTED NOT DETECTE Klebsiella pneumoniae group NOT DETECTED NOT DETECTE Proteus spp. NOT DETECTED NOT DETECTE Salmonella spp. NOT DETECTED NOT DETECTE Serratia marcescens NOT DETECTED NOT DETECTE Haemophilus influenzae NOT DETECTED NOT DETECTE Neisseria meningitidis NOT DETECTED NOT DETECTE Pseudomonas aeruginosa NOT DETECTED NOT DETECTE Stenotrophomonas maltophilia NOT DETECTED NOT DETECTE Giovana albicans NOT DETECTED NOT DETECTE Giovana auris NOT DETECTED NOT DETECTE Giovana glabrata NOT DETECTED NOT DETECTE Giovana krusei NOT DETECTED NOT DETECTE Giovana parapsilosis NOT DETECTED NOT DETECTE Giovana tropicalis NOT DETECTED NOT DETECTE Cryptococcus neoformans/gattii NOT DETECTED NOT DETECTE Performing Lab: see note ML - [facility] LB CBC AUTO DIFF Reviewed date:02/13/2024 11:41:33 AM Interpretation: Performing Lab: Notes/Report: [facility] [place] , White Blood Count 7.6 4.0-11.0 10 3/uL Red Blood Count 3.49 4.20-5.40 10 6/uL Hemoglobin 10.2 12.0-16.0 g/dL Hematocrit 31.9 36.0-48.0 % Mean Corpuscular Volume 91.4 81.0-99.0 fL Mean Corpuscular Hemoglobin 29.2 26.7-34.0 pg Mean Corpuscular HGB Conc 32.0 29.9-35.2 g/dL Red Cell Distribution Width 14.8 11.0-15.0 % Platelet Count 202 150-450 10 3/uL Mean Platelet Volume 9.7 9.5-13.5 fL Neutrophils Percent Auto 71.5 43.0-75.0 % Lymphocytes Percent Auto 17.1 20.5-60.0 % Monocytes Percent Auto 9.9 1.7-12.0 % Eosinophils Percent Auto 0.4 0.9-7.0 % Basophils Percent Auto 0.7 0.2-2.0 % Immature Granulocytes Pct Auto 0.4 0.0-0.5 % Neutrophils Absolute Auto 5.4 1.4-6.5 10 3/uL Lymphocytes Absolute Auto 1.3 1.2-3.8 10 3/uL Monocytes Absolute Auto 0.8 0.3-0.8 10 3/uL Eosinophils Absolute Auto 0.0 0.0-0.7 10 3/uL Basophils Absolute Auto 0.1 0.0-0.1 10 3/uL Immature Granulocytes Abs Auto 0.03 0.00-0.03 10 3/uL Performing Lab: see note ML - [facility] LB INFLUENZA A AND B AG Reviewed date:02/13/2024 11:41:33 AM Interpretation: Performing Lab: Notes/Report: [facility] , Influenza Virus A Antigen Negative Negative for Flu A protein antigen. Infection due to Flu A cannot be ruled out. Flu A antigen in the sample may be below the detection limit of the test. Influenza Virus B Antigen Negative Negative for Flu B protein antigen. Infection due to Flu B cannot be ruled out. Flu B antigen in the sample may be below the detection limit of the test. Performing Lab: see note ML - [facility] LB LACTATE or LACTIC ACID Reviewed date:02/13/2024 11:41:33 AM Interpretation: Performing Lab: Notes/Report: [facility] , Lactate/Lactic Acid 1.4 0.4-2.0 mmol/L Performing Lab: see note ML - [facility] LB UA (CLEAN or CATCH) BUNDLES HANGER or M ICRO IF IND. Reviewed date:02/13/2024 11:41:33 AM Interpretation: Performing Lab: Notes/Report: [facility] , Color Urine LT. YELLOW YELLOW Clarity Urine CLEAR CLEAR Specific [place] Urine 1.015 1.005-1.025 pH Urine 6.0 5.0-9.0 Protein Urine NEGATIVE NEG/TRACE mg/dL Glucose Urine UA NEGATIVE NEGATIVE mg/dL Bilirubin Urine NEGATIVE NEGATIVE Ketones Urine NEGATIVE NEGATIVE mg/dL Blood Urine MODERATE NEGATIVE Nitrite Urine NEGATIVE NEGATIVE Urobilinogen Urine 1.0 0.2-1.0 EU/dL Leukocyte Esterase Urine TRACE NEGATIVE Urine Microscopic Indicated YES Performing Lab: see note ML - [facility] LB URINE MICROSCOPIC ONLY Reviewed date:02/13/2024 11:41:33 AM Interpretation: Performing Lab: Notes/Report: [facility] , WBC Urine 2-5 NONE SEEN #/HPF RBC Urine 2-5 0-2 #/HPF Bacteria Urine SMALL NONE SEEN #/HPF Mucus Urine NONE SEEN NONE SEEN Squamous Epithelial Cell Urine FEW NONE/RARE #/LPF Crystals Seen? None Seen None Seen #/HPF Cast Seen? NONE SEEN NONE SEEN #/LPF Urine Culture Indicated YES Performing Lab: see note ML - [facility] SARS-CoV-2 Ag* Reviewed date:02/13/2024 11:41:33 AM Interpretation: Performing Lab: Notes/Report: [facility] , SARS-CoV-2 Ag NEGATIVE NEGATIVE This test has not been FDA cleared or approved, but has been authorized by the FDA under an Emergency Use Authorization (EUA) for use by authorized laboratories certified under CLIA that meet the requirements to perform moderate or high complexity testing. This test has been authorized only for the detection of proteins from SARS-CoV-2, not for any other viruses or pathogens. The emergency use of this test is authorized for the duration of the declaration that circumstances exist justifying the authorization of emergency use of in vitro diagnostic tests for detection and/or diagnosis of Covid-19 under section 564(b)(1) of the Act, 21 U.S.C. 360bbb-3(b)(1), unless the declaration is terminated or authorization is revoked sooner. Performing Lab: see note ML - [facility] LB ECG 12 lead Reviewed date:02/15/2024 09:51:53 AM Interpretation: Performing Lab: Notes/Report: Source Facility: [place] [address] [place] [address] Electrocardiograph Report Signed Patient: SHAHLA ARIAS MR#: [id number] : 1980 Acct:[id number] Age/Sex: 44 / F ADM Date: 02/12/24 Loc: MS 218-[address]: Pat Mendez M.D. Ordering Physician: Annabelle Zhou Date of Service: 02/12/24 Procedure(s): ECG 12 lead Accession Number(s): [id number] cc: [facility] Test Date: 2024-02-12 Pat Name: SHAHLA ARIAS Department: Room: [facility] Gender: Female [employer] Impregnating Range Tender: : 1980 Requested By: JOSETTE MANDEL Order Number: [id number] Reading MD: PAT MENDEZ Measurements Intervals Pope Rate: 79 P: 70 GA: 138 QRS: 34 QRSD: 106 T: 221 QT: 354 QTc: 388 Interpretive Statements 1100 Sinus rhythm 2420 RSR (QR) in lead V1/V2, consistent with right ventricular conduction delay [address] depression 4364 Twave abnormality, possible anterolateral ischemia 4664 Twave abnormality, possible inferior ischemia 9150 abnormal ECG No previous ECG available for comparison Electronically Signed On 02-15-2024 8:00:49 EST by PAT MENDEZ Dictated By: Pat Mendez M.D. Signed By: 02/15/24 08 DD/ 53 TD/TT: Reimbursement Liaison: [place] [address] Electrocardiograph Report Signed Patient: SHAHLA ARIAS MR#: [id number] : 1980 Acct:[id number] Age/Sex: 44 / F ADM Date: 02/12/24 Loc: MS 218-[address]: Zoe Mendez M.D. Ordering Physician: Annabelle Zhou Date of Service: 02/12/24 Procedure(s): ECG 12 lead Accession Number(s): [id number] cc: [facility] [place] Test Date: 2024-02-12 Pat Name: SHAHLA ARIAS Department: 21 Room: [facility] Gender: Female [employer] Impregnating Range Tender: : 1980 Requ ested By: JOSETTE MANDEL Order Number: [id number] Reading MD: PAT MENDEZ Measurements Intervals Pope Rate: 79 P: 70 GA: 138 QRS: 34 QRSD: 106 T: 221 QT: 354 QTc: 388 Interpretive Statements 1100 Sinus rhythm 2420 RSR (QR) in michelle d V1/V2, consistent with right ventricular conduction delay [address] depression 4364 Twave abnormali ty, possible anterolateral ischemia 4664 Twave abnormali ty, possible inferior ischemia 9150 abnormal ECG No previous ECG avai lable for comparison Electronically Marylin d On 02-15-2024 8:00:49 EST by PAT MENDEZ Dictated By: Meek Mendez M.D. Signed By: 02/15/24 0801 DD/ TD/TT: Reimbursement Liaison: XR chest 1V Reviewed date:02/13/2024 11:41:33 AM Interpretation: Performing Lab: Notes/Report: Source Facility: [facility] [place] [address] [place] [address] XRay Report Signed Patient: SHAHLA ARIAS MR#: [id number] : 1980 Acct:[id number] Age/Sex: 44 / F ADM Date: 02/12/24 Loc: ER Attending Dr: Ordering Physician: Annabelle Zhou Date of Service: 02/12/24 Procedure(s): XR chest 1V Accession Number(s): [id number] cc: JOSETTE MANDEL ; Annabelle Zhou [place] [address] Patient Name: SHAHLA ARIAS MRN: [id number] date: 1980 Sex: F Assigned Patient Location: ER Current Patient Location: ED.MAIN Accession/Order Number: [id number] Exam Date: 02/12/2024 17:20 Report Date: 02/12/2024 17:59 At the request of: ANNABELLE ZHOU Procedure: XR chest 1V EXAM: XR chest 1V HISTORY: . Cough, hypotension . COMPARISON: None. TECHNIQUE: Single view of the chest FINDINGS: Heart is normal in size. Vascularity is unremarkable. Left lung is unremarkable. Increased markings are noted in the right mid to lower lung field. No consolidation is noted. EKG leads overlie the chest. XR/XR chest 1V IMPRESSION: There are a few increased markings in the right mid to lower lung field most likely representing atelectasis. An early infiltrate cannot be excluded. No consolidation is noted. Electronically authenticated by: URIEL RASCON Date: 02/12/2024 17:59 Dictated By: Uriel Rascon M.D. Signed By: 02/12/241800 DD/ 58 TD/TT: Reimbursement Liaison: The [address] [address] XRay Report Signed Patient: SHAHLA ARIAS MR#: [id number] : 1980 Acct:[id number] Age/Sex: 44 / F ADM Date: 02/12/24 Loc: ER Attending Dr: Ordering Physician: Annabelle Zhou Date of Service: 02/12/24 Procedure(s): XR chest 1V Accession Number(s): [id number] cc: JOSETTE MANDEL ; Annabelle Zhou [address] [address] Patient Name: SHAHLA ARIAS MRN: [id number] date: 1980 Sex: F Assigned Patient Location: ER Current Patient Loca tion: ED.MAIN Accession/Order Numb er: [id number] Exam Date: 17:20 Report Date: 02/12/2024 17:59 At the request of: ANNABELLE ZHOU Procedure: XR chest 1V EXAM: XR chest 1V HISTORY: . Cough, hypotension . COMPARISON: None. TECHNIQUE: Single vi ew of the chest FINDINGS: Heart is n ormal in size. Vascularity is unremarkable. Left lung is unremarkable. Increa sed markings are noted in the right mid to lower lung field. No consolidat ion is noted. EKG leads overlie th e chest. X R/XR chest 1V IMPRESSION: There are a few incr eased markings in the right mid to lower lung field most likely representing atelectasis. An early infiltrate cannot be excluded. No consolidation is noted. Electronically authenticated by: URIEL RASCON Date: 02/12/2024 17:59 Dictated By: Griselda Rascon M.D. Signed By: 02/12/241800 DD/ 58 TD/TT: Reimbursement Liaison: Troponin I High Sensitivity Reviewed date:02/13/2024 11:41:33 AM Interpretation: Performing Lab: Notes/Report: [facility] , Troponin I High Sensitivity 66.6 4.0-51.3 pg/mL RESULTS CALLED TO AMBER MARKHAM, RN at 1940 CUT-OFF POINTS HAVE BEEN ESTABLISHED BASED ON THE FOURTH UNIVERSAL DEFINITION OF MYOCARDIAL INFARCTION. THE UPPER REFERENCE LIMIT (URL) OF TROPONIN, DEFINED THE 99TH PERCENTILE OF cTnI DISTRIBUTION IN A REFERENCE POPULATION, HAS BEEN CONFIRMED THE DECISION THRESHOLD FOR NC DIAGNOSIS. 99TH PERCENTILE = 51.4 PG/ML NOTE: HIGH-SENSITIVITY TROPONIN ASSAY IS NOT INTENDED TO BE USED IN ISOLATION BUT SHOULD BE INTERPRETED IN CONJUNCTION WITH OTHER DIAGNOSTIC AND CLINICAL INFORMATION. Performing Lab: see note ML - [facility] LB Troponin I High Sensitivity Reviewed date:02/13/2024 11:41:33 AM Interpretation: Performing Lab: Notes/Report: [facility] , Troponin I High Sensitivity 66.9 4.0-51.3 pg/mL RESULTS CALLED TO NEREIDA CHONG RN at 2345 CUT-OFF POINTS HAVE BEEN ESTABLISHED BASED ON THE FOURTH UNIVERSAL DEFINITION OF MYOCARDIAL INFARCTION. THE UPPER REFERENCE LIMIT (URL) OF TROPONIN, DEFINED THE 99TH PERCENTILE OF cTnI DISTRIBUTION IN A REFERENCE POPULATION, HAS BEEN CONFIRMED THE DECISION THRESHOLD FOR NC DIAGNOSIS. 99TH PERCENTILE = 51.4 PG/ML NOTE: HIGH-SENSITIVITY TROPONIN ASSAY IS NOT INTENDED TO BE USED IN ISOLATION BUT SHOULD BE INTERPRETED IN CONJUNCTION WITH OTHER DIAGNOSTIC AND CLINICAL INFORMATION. Performing Lab: see note - [facility] LB ECG 12 lead Reviewed date:02/15/2024 09:51:53 AM Interpretation: Performing Lab: Notes/Report: Source Facility: [facility] [place] [address] [place] [address] Electrocardiograph Report Signed Patient: SHAHLA ARIAS MR#: [id number] : 1980 Acct:[id number] Age/Sex: 44 / F ADM Date: 02/12/24 Loc: MS 218-[address]: Pat Mendez M.D. Ordering Physician: Amanda Cornell NP Date of Service: 02/13/24 Procedure(s): ECG 12 lead Accession Number(s): [id number] cc: [facility] Test Date: 2024-02-13 Pat Name: SHAHLA ARIAS Department: Room: [facility] Gender: Female [employer] Impregnating Range Tender: : 1980 Requested By: JOSETTE MANDEL Order Number: [id number] Reading MD: PAT MENDEZ Measurements Intervals Pope Rate: 77 P: 60 GA: 136 QRS: 17 QRSD: 118 T: 193 QT: 396 QTc: 449 Interpretive Statements SINUS RHYTHM LEFT VENTRICULAR HYPERTROPHY AND ST-T CHANGE [VOLTAGE CRITERIA PLUS ST/T ABNORMALITY] PROBABLE LATERAL MYOCARDIAL INFARCTION [35 ms Q WAVE IN I/aVL/V5/V6], OF INDETERMINATE AGE Compared to ECG 02/12/2024 16:54:44 Left ventricular hypertrophy now present Myocardial infarct finding now present Possible ischemia no longer present ST (T wave) deviation still present Electronically Signed On 02-15-2024 8:01:00 EST by PAT MENDEZ Dictated By: Pat Mendez M.D. Signed By: 02/15/24800 DD/ 7 TD/TT: Reimbursement Liaison: [place] [address] Electrocardiograph Report Signed Patient: SHAHLA ARIAS MR#: [id number] : 1980 Acct:[id number] Age/Sex: 44 / F ADM Date: 02/12/24 Loc: MS 218- Attending Dr: Zoe Mendez M.D. Ordering Physician: Amanda Cornell NP Date of Service: 02/13/24 Procedure(s): ECG 12 lead Accession Number(s): [id number] cc: [facility] Test Date: 2024-02-13 Pat Name: SHAHLA ARIAS Department: 21 Room: [facility] Gender: Female [employer] Impregnating Range Tender: : 1980 Requ ested By: JOSETTE MANDEL Order Number: [id number] Reading MD: PAT MENDEZ Measurements Intervals Pope Rate: 77 P: 60 GA: 136 QRS: 17 QRSD: 118 T: 193 QT: 396 QTc: 449 Interpretive Statements SINUS RHYTHM LEFT VENTRICULAR HYPERTROPHY AND ST-T CHANGE [VOLTAGE CRITERIA PLUS ST/T ABNORMALITY] PROBABLE LATERAL MYOCARDIAL INFARCTION [35 ms Q WAVE IN I/aVL/V5/V6], OF INDETERMINATE AGE Compared to ECG 02/12/2024 16:54:44 Left ventricular hypertrophy now present Myocardial infarct finding now present Possible ischemia no longer present ST (T wave) deviatio n still present Electronically Marylin d On 02-15-2024 8:01:00 EST by PAT MENDEZ Dictated By: Meek Mendez M.D. Signed By: 02/15/24800 DD/ 7 TD/TT: Reimbursement Liaison: White Blood Cells Reviewed date:02/22/2024 03:12:00 PM Interpretation: Performing Lab: Notes/Report: [facility] , White Blood Cells See Below For Report White Blood Cells White Blood Cells None seen White Blood Cells Performing Lab: see note LC - [facility] LB Epithelial Cells Reviewed date:02/22/2024 03:12:00 PM Interpretation: Performing Lab: Notes/Report: [facility] , Epithelial Cells See Below For Report Epithelial Cells None seen Performing Lab: see note LC - [facility] LB Result 1 Reviewed date:02/22/2024 03:12:00 PM Interpretation: Performing Lab: Notes/Report: [facility] , Result 1 See Below For Report Result 1 TNP Result 1 Test not performed Result 1 TNP Performing Lab: see note LC - [facility] LB SEE REPORT - [facility] Id information not found for OBX-specific morning show producer legend Result 2 Reviewed date:02/22/2024 03:12:00 PM Interpretation: Performing Lab: Notes/Report: [facility] , Result 2 See Below For Report Result 2 BOOK COVERER Performing Lab: see note LC - [facility] LB Result 3 Reviewed date:02/22/2024 03:12:00 PM Interpretation: Performing Lab: Notes/Report: [facility] , Result 3 See Below For Report Result 3 BOOK COVERER Performing Lab: see note LC - [facility] LB Result 4 Reviewed date:02/22/2024 03:12:00 PM Interpretation: Performing Lab: Notes/Report: [facility] , Result 4 See Below For Report Result 4 BOOK COVERER Performing Lab: see note LC - [facility] LB Gram Stain Evaluation Reviewed date:02/16/2024 01:13:11 PM Interpretation: Performing Lab: Notes/Report: [facility] , Gram Stain Evaluation See Below For Report Gram Stain Evaluation This specimen is of good quality and is acceptable for routine Gram Stain Evaluation bacterial culture. Gram Stain Evaluation This specimen is of good quality and is acceptable for routine Performing Lab: see note LC - [facility] LB Lower Respiratory Culture Reviewed date:02/22/2024 03:12:00 PM Interpretation: Performing Lab: Notes/Report: [facility] , Lower Respiratory Culture See Below For Report Lower Respiratory Culture Lower Respiratory Culture Routine respiratory carmelina Lower Respiratory Culture Lower Respiratory Culture Lower Respiratory Culture Lower Respiratory Culture * This is a corrected result. * Lower Respiratory Culture Lower Respiratory Culture Lower Respiratory Culture Lower Respiratory Culture A prior result that was reported as final has been changed. Lower Respiratory Culture Performing Lab: see note LC - [facility] LB SEE REPORT - [facility] Id information not found for OBX-specific morning show producer legend Gram Stain Evaluation Reviewed date:02/22/2024 03:12:00 PM Interpretation: Performing Lab: Notes/Report: [facility] , Gram Stain Evaluation See Below For Report Gram Stain Evaluation This specimen is of good quality and is acceptable for routine Gram Stain Evaluation bacterial culture. Gram Stain Evaluation This specimen is of good quality and is acceptable for routine Performing Lab: see note LC - [facility] LB CBC AUTO DIFF Reviewed date:02/14/2024 01:04:38 PM Interpretation: Performing Lab: Notes/Report: [facility] , White Blood Count 4.8 4.0-11.0 10 3/uL Red Blood Count 3.41 4.20-5.40 10 6/uL Hemoglobin 9.8 12.0-16.0 g/dL Hematocrit 31.2 36.0-48.0 % Mean Corpuscular Volume 91.5 81.0-99.0 fL Mean Corpuscular Hemoglobin 28.7 26.7-34.0 pg Mean Corpuscular HGB Conc 31.4 29.9-35.2 g/dL Red Cell Distribution Width 14.7 11.0-15.0 % Platelet Count 190 150-450 10 3/uL Mean Platelet Volume 10.0 9.5-13.5 fL Neutrophils Percent Auto 68.6 43.0-75.0 % Lymphocytes Percent Auto 22.7 20.5-60.0 % Monocytes Percent Auto 7.1 1.7-12.0 % Eosinophils Percent Auto 0.2 0.9-7.0 % Basophils Percent Auto 1.0 0.2-2.0 % Immature Granulocytes Pct Auto 0.4 0.0-0.5 % Neutrophils Absolute Auto 3.3 1.4-6.5 10 3/uL Lymphocytes Absolute Auto 1.1 1.2-3.8 10 3/uL Monocytes Absolute Auto 0.3 0.3-0.8 10 3/uL Eosinophils Absolute Auto 0.0 0.0-0.7 10 3/uL Basophils Absolute Auto 0.1 0.0-0.1 10 3/uL Immature Granulocytes Abs Auto 0.02 0.00-0.03 10 3/uL Performing Lab: see note ML - [facility] LB NM rachele perf SPECT rest str Reviewed date:05/02/2024 02:37:15 PM Interpretation: Performing Lab: Notes/Report: Source Facility: [place] [address] Nuclear Medicine Report Signed Patient: SHAHLA ARIAS MR#: [id number] : 1980 Acct:[id number] Age/Sex: 44 / F ADM Date: 04/29/24 Loc: NM Attending Dr: BENITO PRADO Ordering Physician: BENITO PRADO Date of Service: 04/29/24 Procedure(s): NM rachele perf SPECT rest or str Accession Number(s): [id number] cc: BENITO PRADO; JOSETTE MANDEL Patient Name: SHAHLA ARIAS MR#: [id number] : 1980 Exam Date: 04/29/2024 Ordering Doctor: BENITO PRADO M.D. RADIOLOGY REPORT PROCEDURE: NM RACHELE PERF SPECT REST OR STR COMPARISON: None. INDICATIONS: DYSPNEA, PRE-EXCITATION SYNDROME TECHNIQUE: Exam Description: Rest Only one day protocol non-gated SPECT Rest Imagin.3 mCi Tc-99m Cardiolite IV on 04/29/2024 Stress Imaging mCi Tc-99m Cardiolite IV on Exercise Protocol: Rest only Heart Rate (bpm): Rest: Max: PMHR: Blood Pressure: Rest: Max: Symptoms: Rest ECG findings: For more details, please see separate cardiac stress test report. FINDINGS: QUALITY OF STUDY: PERFUSION DEFECT: LOCATION: Basal septal SIZE: Moderate SEVERITY: Moderate LVEF: Calculated EF % - not applicable SUMMARY: Myocardial perfusion imaging study is abnormal CONCLUSION: Rest only, one-day protocol non gated SPECT imaging shows a basal septal perfusion defect seen in short axis views Dictated by: Marivel Prince M.D. on 05/01/2024 at 13:23 Approved by: Marivel Prince M.D. on 05/01/2024 at 13:31 Dictated By: Marivel Prince M.D. Signed By: 05/01/24 1332 DD/ 1331 TD/TT: Reimbursement Liaison: [place] [address] Nuclear Medicine Report Signed Patient: SHAHLA ARIAS MR#: [id number] : 1980 Acct:[id number] Age/Sex: 44 / F ADM Date: 04/29/24 Loc: NM Attending Dr: RODOLFO PRADO Ordering Physician: BENITO PRADO Date of Service: 04/29/24 Procedure(s): NM rachele perf SPECT rest or str Accession Number(s): [id number] cc: JUANITA PRADO; JOSETTE MANDEL Patient Name: SHAHLA ARIAS MR#: [id number] : 1980 Exam Date: 04/29/2024 Ordering Doctor: LAKEISHA PRADO M.D. RADIOLOGY REPORT PROCEDURE: NM RACHELE PE RF SPECT REST OR STR COMPARISON: None. INDICATIONS: DYSPNEA , PRE-EXCITATION SYNDROME TECHNIQUE: Exam Description: Re st Only one day protocol non-gated SPECT Rest Imagin.3 m Ci Tc-99m Cardiolite IV on 04/29/2024 Stress Imaging mCi T c-99m Cardiolite IV on Exercise Protocol: R est only Heart Rate (bpm): Re st: Max: PMHR: Blood Pressure: Rest : Max: Symptoms: Rest ECG findings: F or more details, please see separate cardiac stress test report. FINDINGS: QUALITY OF STUDY: PERFUSION DEFECT: LOCATION: Basal septal SIZE: Moderate SEVERITY: Moderate LVEF: Calculated EF % - not applicable SUMMARY: Myocardial perfusion imaging study is abnormal CONCLUSION: Rest only, one-day protocol non gated SPECT imaging shows a basal septal perfusion defect see n in short axis views Dictated by: Marivel Prince M.D. on 05/01/2024 at 13:23 Approved by: Marivel Prince M.D. on 05/01/2024 at 13:31 Dictated By: Marivel Prince M.D. Signed By: 05/01/24 1332 DD/ 1331 TD/TT: Reimbursement Liaison: LIPASE Reviewed date:05/21/2024 03:21:37 PM Interpretation: Performing Lab: Notes/Report: [facility] , Lipase 62.0 16.0-77.0 U/L Performing Lab: see note ML - [facility] LB UA (CLEAN or CATCH) BUNDLES HANGER or M ICRO IF IND. Reviewed date:05/21/2024 02:46:29 PM Interpretation: Performing Lab: Notes/Report: [facility] , Color Urine YELLOW YELLOW Clarity Urine SL CLOUDY CLEAR Specific [place] Urine 1.015 1.005-1.025 pH Urine 5.5 5.0-9.0 Protein Urine TRACE NEG/TRACE mg/dL Glucose Urine UA NEGATIVE NEGATIVE mg/dL Bilirubin Urine NEGATIVE NEGATIVE Ketones Urine TRACE NEGATIVE mg/dL Blood Urine NEGATIVE NEGATIVE Nitrite Urine NEGATIVE NEGATIVE Urobilinogen Urine 1.0 0.2-1.0 EU/dL Leukocyte Esterase Urine SMALL NEGATIVE Urine Microscopic Indicated YES Performing Lab: see note ML - [facility] LB URINE MICROSCOPIC ONLY Reviewed date:05/21/2024 02:46:29 PM Interpretation: Performing Lab: Notes/Report: [facility] , WBC Urine 2-5 NONE SEEN #/HPF RBC Urine NONE SEEN 0-2 #/HPF Bacteria Urine TRACE NONE SEEN #/HPF Mucus Urine NONE SEEN NONE SEEN Squamous Epithelial Cell Urine MANY NONE/RARE #/LPF Crystals Seen? None Seen None Seen #/HPF Cast Seen? NONE SEEN NONE SEEN #/LPF Urine Culture Indicated NO Performing Lab: see note ML - [facility] LB Type and Screen Reviewed date:05/22/2024 12:03:23 PM Interpretation: Performing Lab: Notes/Report: [facility] , Blood Type B Positive Antibody Screen NEGATIVE HCG Qualitative* Reviewed date:05/21/2024 02:50:55 PM Interpretation: Performing Lab: Notes/Report: [facility] , HCG Qualitative POSITIVE NEGATIVE Performing Lab: see note ML - [facility] LB ECG 12 lead Reviewed date:05/21/2024 03:21:37 PM Interpretation: Performing Lab: Notes/Report: Source Facility: [facility]-[address] [place] [address] [place] [address] Electrocardiograph Report Signed Patient: SHAHLA ARIAS MR#: [id number] : 1980 Acct:[id number] Age/Sex: 44 / F ADM Date: 05/21/24 Loc: ER Attending Dr: Ordering Physician: Blossom Parra Date of Service: 05/21/24 Procedure(s): ECG 12 lead Accession Number(s): [id number] cc: [facility] Test Date: 2024-05-21 Pat Name: SHAHLA ARIAS Department: Room: - Gender: Female [employer]: : 1980 Requested By: [id number] Order Number: [id number] Reading MD: MARIVEL PRINCE Measurements Intervals Pope Rate: 87 P: 65 GA: 134 QRS: 29 QRSD: 98 T: 208 QT: 334 QTc: 379 Interpretive Statements 1100 Sinus rhythm 5234 Left ventricular hypertrophy with repolarization abnormality ST T wave abnormalities secondary to LEFT VENTRICULAR HYPERTROPHY vs ischemia 9150 abnormal ECG Compared to ECG 02/13/2024 05:18:46 Early repolarization now present Myocardial infarct finding no longer present Electronically Signed On 05-21-2024 14:58:14 EDT by MARIVEL PRINCE Dictated By: Marivel Prince M.D. Signed By: 05/21/24 1458 DD/ 1403 TD/TT: Reimbursement Liaison: [place] [address] Electrocardiograph Report Signed Patient: SHAHLA ARIAS MR#: [id number] : 1980 Acct:[id number] Age/Sex: 44 / F ADM Date: 05/21/24 Loc: ER Attending Dr: Ordering Physician: Blossom Parra Date of Service: 05/21/24 Procedure(s): ECG 12 lead Accession Number(s): [id number] cc: [facility] Test Date: 2024-05-21 Pat Name: SHAHLA ARIAS Department: 21 Room: - Gender: Female [employer] Tender: : 1980 Marianna joy By: 1854 Order Number: [id number] Reading MD: MAIRVEL PRINCE Measurements Intervals Pope Rate: 87 P: 65 GA: 134 QRS: 29 QRSD: 98 T: 208 QT: 334 QTc: 379 Interpretive Statements 1100 Sinus rhythm 5234 Left ventricula r hypertrophy with repolarization abnormality ST T wave abnormalit ies secondary to LEFT VENTRICULAR HYPERTROPHY vs ischemia 9150 abnormal ECG Compared to ECG 02/13/2024 05:18:46 Early repolarization now present Myocardial infarct finding no longer present Electronically Marylin d On 05-21-2024 14:58:14 EDT by MARIVEL PRINCE Dictated By: Marivel Prince M.D. Signed By: 05/21/24 1458 DD/ 1403 TD/TT: Reimbursement Liaison: Troponin I High Sensitivity Reviewed date:05/21/2024 03:54:22 PM Interpretation: Performing Lab: Notes/Report: [facility] , Troponin I High Sensitivity 136.1 4.0-51.3 pg/mL RESULTS CALLED TO DARI FULTON at 1545 CUT-OFF POINTS HAVE BEEN ESTABLISHED BASED ON THE FOURTH UNIVERSAL DEFINITION OF MYOCARDIAL INFARCTION. THE UPPER REFERENCE LIMIT (URL) OF TROPONIN, DEFINED THE 99TH PERCENTILE OF cTnI DISTRIBUTION IN A REFERENCE POPULATION, HAS BEEN CONFIRMED THE DECISION THRESHOLD FOR NC DIAGNOSIS. 99TH PERCENTILE = 51.4 PG/ML NOTE: HIGH-SENSITIVITY TROPONIN ASSAY IS NOT INTENDED TO BE USED IN ISOLATION BUT SHOULD BE INTERPRETED IN CONJUNCTION WITH OTHER DIAGNOSTIC AND CLINICAL INFORMATION. Performing Lab: see note ML - [facility] LB Troponin I High Sensitivity Reviewed date:05/22/2024 12:03:14 PM Interpretation: Performing Lab: Notes/Report: [facility] , Troponin I High Sensitivity 121.4 4.0-51.3 pg/mL RESULTS CALLED TO JODIE WEST RN @BY Fabiola Whiting at 1927 CUT-OFF POINTS HAVE BEEN ESTABLISHED BASED ON THE FOURTH UNIVERSAL DEFINITION OF MYOCARDIAL INFARCTION. THE UPPER REFERENCE LIMIT (URL) OF TROPONIN, DEFINED THE 99TH PERCENTILE OF cTnI DISTRIBUTION IN A REFERENCE POPULATION, HAS BEEN CONFIRMED THE DECISION THRESHOLD FOR NC DIAGNOSIS. 99TH PERCENTILE = 51.4 PG/ML NOTE: HIGH-SENSITIVITY TROPONIN ASSAY IS NOT INTENDED TO BE USED IN ISOLATION BUT SHOULD BE INTERPRETED IN CONJUNCTION WITH OTHER DIAGNOSTIC AND CLINICAL INFORMATION. Performing Lab: see note ML - [facility] Troponin I High Sensitivity Reviewed date:05/22/2024 05:37:03 PM Interpretation: Performing Lab: Notes/Report: PER DR MENDEZ [facility] , Troponin I High Sensitivity 139.2 4.0-51.3 pg/mL RESULTS CALLED TO JODIE WEST RN @BY Fabiola Whiting at 2222 CUT-OFF POINTS HAVE BEEN ESTABLISHED BASED ON THE FOURTH UNIVERSAL DEFINITION OF MYOCARDIAL INFARCTION. THE UPPER REFERENCE LIMIT (URL) OF TROPONIN, DEFINED THE 99TH PERCENTILE OF cTnI DISTRIBUTION IN A REFERENCE POPULATION, HAS BEEN CONFIRMED THE DECISION THRESHOLD FOR NC DIAGNOSIS. 99TH PERCENTILE = 51.4 PG/ML NOTE: HIGH-SENSITIVITY TROPONIN ASSAY IS NOT INTENDED TO BE USED IN ISOLATION BUT SHOULD BE INTERPRETED IN CONJUNCTION WITH OTHER DIAGNOSTIC AND CLINICAL INFORMATION. Performing Lab: see note ML - [facility] LB BNP Reviewed date:05/22/2024 05:37:03 PM Interpretation: Performing Lab: Notes/Report: [facility] , NT Pro B Type Natriuretic Pept 71.0 <=450.0 pg/mL Performing Lab: see note ML - [facility] INFLUENZA A AND B AG Reviewed date:05/22/2024 05:37:03 PM Interpretation: Performing Lab: Notes/Report: [facility] , Influenza Virus A Antigen Negative Negative for Flu A protein antigen. Infection due to Flu A cannot be ruled out. Flu A antigen in the sample may be below the detection limit of the test. Influenza Virus B Antigen Negative Negative for Flu B protein antigen. Infection due to Flu B cannot be ruled out. Flu B antigen in the sample may be below the detection limit of the test. Performing Lab: see note ML - [facility] LB MAGNESIUM Reviewed date:05/22/2024 05:37:03 PM Interpretation: Performing Lab: Notes/Report: [facility] , Magnesium 1.5 1.8-2.4 mg/dL Performing Lab: see note ML - [facility] LB PREG QUANT HCG Reviewed date:05/22/2024 05:37:03 PM Interpretation: Performing Lab: Notes/Report: Comment use am blood? [facility] , HCG Quantitative 6 5-50 0.2-1 WEEK 50-500 1-2 WEEKS 100-5,000 2-3 WEEKS 500-10,000 3-4 WEEKS 1,000-50,000 4-5 WEEKS 10,000-100,000 5-6 WEEKS 15,000-200,000 6-8 WEEKS 10,000-100,000 2-3 MONTHS Performing Lab: see note ML - [facility] LB PROF 14(COMP METB) Reviewed date:05/22/2024 05:37:03 PM Interpretation: Performing Lab: Notes/Report: [facility] , Sodium 136 136-145 mmol/L Potassium 3.5 3.5-5.1 mmol/L Chloride 102 98-107 mmol/L Carbon Dioxide 23.1 21.0-32.0 mmol/L Anion Gap 14.4 Glucose 90 74-106 mg/dL Blood Urea Nitrogen 33.0 7.0-18.0 mg/dL Creatinine 1.89 0.55-1.02 mg/dL Estimated GFR ( Kaylan 35 >=60 mL/min/1.73m 2 Estimated GFR (Non- Trinity 29 >=60 mL/min/1.73m 2 BUN Creatinine Ratio 17.5 Calcium 8.6 8.5-10.1 mg/dL Bilirubin Total 0.6 0.2-1.0 mg/dL Aspartate Amino Transferase 27 15-37 U/L Alanine Aminotransferase 29 14-59 U/L Alkaline Phosphatase 89 46-116 U/L Total Protein 5.7 6.4-8.2 g/dL Albumin Level 2.8 3.4-5.0 g/dL Globulin 2.9 Albumin Globulin Ratio 1.0 Performing Lab: see note ML - [facility] LB Troponin I High Sensitivity Reviewed date:05/22/2024 05:37:03 PM Interpretation: Performing Lab: Notes/Report: [facility] , Troponin I High Sensitivity 100.5 4.0-51.3 pg/mL RESULTS CALLED TO JOHANA DANIELSON RN @BY Fabiola Whiting at 0624 CUT-OFF POINTS HAVE BEEN ESTABLISHED BASED ON THE FOURTH UNIVERSAL DEFINITION OF MYOCARDIAL INFARCTION. THE UPPER REFERENCE LIMIT (URL) OF TROPONIN, DEFINED THE 99TH PERCENTILE OF cTnI DISTRIBUTION IN A REFERENCE POPULATION, HAS BEEN CONFIRMED THE DECISION THRESHOLD FOR NC DIAGNOSIS. 99TH PERCENTILE = 51.4 PG/ML NOTE: HIGH-SENSITIVITY TROPONIN ASSAY IS NOT INTENDED TO BE USED IN ISOLATION BUT SHOULD BE INTERPRETED IN CONJUNCTION WITH OTHER DIAGNOSTIC AND CLINICAL INFORMATION. Performing Lab: see note ML - [facility] SARS-CoV-2 Ag* Reviewed date:05/22/2024 05:37:03 PM Interpretation: Performing Lab: Notes/Report: [facility] , SARS-CoV-2 Ag NEGATIVE NEGATIVE This test has not been FDA cleared or approved, but has been authorized by the FDA under an Emergency Use Authorization (EUA) for use by authorized laboratories certified under CLIA that meet the requirements to perform moderate or high complexity testing. This test has been authorized only for the detection of proteins from SARS-CoV-2, not for any other viruses or pathogens. The emergency use of this test is authorized for the duration of the declaration that circumstances exist justifying the authorization of emergency use of in vitro diagnostic tests for detection and/or diagnosis of Covid-19 under section 564(b)(1) of the Act, 21 U.S.C. 360bbb-3(b)(1), unless the declaration is terminated or authorization is revoked sooner. Performing Lab: see note ML - [facility] CA echo limited Reviewed date:05/22/2024 05:37:03 PM Interpretation: Performing Lab: Notes/Report: Source Facility: [facility]-[address] [place] [address] [place] [address] Cardiology Report Signed Patient: SHAHLA ARIAS MR#: [id number] : 1980 Acct:[id number] Age/Sex: 44 / F ADM Date: 05/21/24 Loc: ICU 273-[address]: Pat Mendez M.D. Ordering Physician: Pat Mendez M.D. Date of Service: 05/22/24 Procedure(s): CA echo limited Accession Number(s): [id number] cc: JOSETTE MANDEL ; Pat Mendez M.D. Patient Name: SHAHLA ARIAS MR#: [id number] : 1980 Exam Date: 05/22/2024 Ordering Doctor: DR Pat Menedz . ECHOCARDIOGRAM REPORT PROCEDURE: CA ECHO LIMITED INDICATIONS: elevated trop, hypertension, diabetes COMPARISON: None. DESCRIPTION: Limited ECHOCARDIOGRAM Real-time transthoracic echocardiography with 2D and M-mode performed. QUALITY: Limited echocardiogram per physician order. Technically difficult due patient's condition. LEFT VENTRICLE: Normal chamber size. Normal left ventricular wall thickness. LV EF: Global left ventricular systolic function is difficult to assess but appears preserved; visually estimated ejection fraction is 55%. Unable to assess regional wall motion abnormalities. LEFT ATRIUM: Appears normal in size. RIGHT ATRIUM: Appears normal in size. RIGHT VENTRICLE: Poorly seen; appears normal in size and systolic function. TRICUSPID VALVE: Poorly visualized. MITRAL VALVE: Poorly visualized. AORTIC VALVE: Not well visualized. . PULMONIC VALVE: Not well visualized. PERICARDIUM: Anterior free space; trivial effusion versus fat pad. IVC: Not well visualized. CONCLUSION: 1. Global left ventricular systolic function is difficult to assess but appears preserved; visually estimated ejection fraction is 55% 2. The right ventricle is poorly seen; it appears normal in size and systolic function 3. Valvular structures are poorly seen 4. Anterior free space; trivial effusion versus fat pad A limited echocardiogram was performed Adult Echocardiography Procedure Report Left Ventricle LVEDD (3.7 - 5.6 cm): 3.44 cm LVESD (2.2 - 4.0 cm): 2.22 cm LVIVS thickness (0.6 - 1.2 cm): 1.01 cm LVPW thickness (0.5 - 1.0 cm): 1.13 cm LVOT Diameter 2.21 cm Left Atrium Left Atrium Systolic Dimension: 4.06 cm Mitral Valve Right Ventricle Aorta AO Root Diam: 3.04 cm Aortic Valve Tricuspid Valve Pulmonic Valve Right Atrium Dictated by: Marivel Prince M.D. on 05/22/2024 at 14:30 Approved by: Marivel Prince M.D. on 05/22/2024 at 14:34 Dictated By: Marivel Prince M.D. Signed By: 05/22/24 1435 DD/ 143 TD/TT: Reimbursement Liaison: [place] [address] Cardiology Report Signed Patient: SHAHLA ARIAS MR#: [id number] : 1980 Acct:[id number] Age/Sex: 44 / F ADM Date: 05/21/24 Loc: ICU 273-[address]: Zoe Mendez M.D. Ordering Physician: Pat Mendez M.D. Date of Service: 05/22/24 Procedure(s): CA ech o limited Accession Number(s): [id number] cc: JOSETTE MANDEL ; Pat Mendez M.D. Patient Name: SHAHLA ARIAS MR#: [id number] : 1980 Exam Date: 05/22/2024 Ordering Doctor: DR Pat Mendez . ECHOCARDIOGRAM REPORT PROCEDURE: CA ECHO LIMITED INDICATIONS: elevate d trop, hypertension, diabetes COMPARISON: None. DESCRIPTION: Limited ECHOCARDIOGRAM Real-time transthoracic echocardiography wit h 2D and M-mode performed. QUALITY: Limited echocardiogram per physician order. Technically difficult due patient's condition. LEFT VENTRICLE: Norm al chamber size. Normal left ventricular wall thickness. LV EF: Global left ventricular systolic function is difficult to assess but appears preserve d; visually estimated ejection fraction is 55%. Unable to assess regional wall motion abnormalities. LEFT ATRIUM: Appears normal in size. RIGHT ATRIUM: Appear s normal in size. RIGHT VENTRICLE: Poo rly seen; appears normal in size and systolic function. TRICUSPID VALVE: Poo rly visualized. MITRAL VALVE: Poorly visualized. AORTIC VALVE: Not we ll visualized. . PULMONIC VALVE: Not well visualized. PERICARDIUM: Anterio r free space; trivial effusion versus fat pad. IVC: Not well visualized. CONCLUSION: 1. Global left ventricular systolic function is difficult to assess but appears preserved; visually estimated ejection fraction is 55% 2. The right ventric le is poorly seen; it appears normal in size and systolic function 3. Valvular structur es are poorly seen 4. Anterior free spa ce; trivial effusion versus fat pad A limited echocardio gram was performed Adult Echocardiograp hy Procedure Report Left Ventricle LVEDD (3.7 - 5.6 cm) : 3.44 cm LVESD (2.2 - 4.0 cm) : 2.22 cm LVIVS thickness (0.6 - 1.2 cm): 1.01 cm LVPW thickness (0.5 - 1.0 cm): 1.13 cm LVOT Diameter 2.21 cm Left Atrium Left Atrium Systolic Dimension: 4.06 cm Mitral Valve Right Ventricle Aorta AO Root Diam: 3.04 cm Aortic Valve Tricuspid Valve Pulmonic Valve Right Atrium Dictated by: Marivel Prince M.D. on 05/22/2024 at 14:30 Approved by: Marivel Prince M.D. on 05/22/2024 at 14:34 Dictated By: Marivel Prince M.D. Signed By: 05/22/241434 DD/ 33 TD/TT: Reimbursement Liaison: BNP Reviewed date:05/23/2024 08:52:32 AM Interpretation: Performing Lab: Notes/Report: [facility] , NT Pro B Type Natriuretic Pept 607.0 <=450.0 pg/mL Performing Lab: see note ML - [facility] LB MAGNESIUM Reviewed date:05/23/2024 08:52:32 AM Interpretation: Performing Lab: Notes/Report: [facility] [place] , Magnesium 1.7 1.8-2.4 mg/dL Performing Lab: see note ML - [facility] LB PROF 14(COMP METB) Reviewed date:05/23/2024 08:52:32 AM Interpretation: Performing Lab: Notes/Report: [facility] , Sodium 138 136-145 mmol/L Potassium 3.9 3.5-5.1 mmol/L Chloride 105 98-107 mmol/L Carbon Dioxide 26.9 21.0-32.0 mmol/L Anion Gap 10.0 Glucose 93 74-106 mg/dL Blood Urea Nitrogen 23.0 7.0-18.0 mg/dL Creatinine 1.66 0.55-1.02 mg/dL Estimated GFR ( Kaylan 40 >=60 mL/min/1.73m 2 Estimated GFR (Non- Trinity 33 >=60 mL/min/1.73m 2 BUN Creatinine Ratio 13.9 Calcium 8.6 8.5-10.1 mg/dL Bilirubin Total 0.4 0.2-1.0 mg/dL Aspartate Amino Transferase 29 15-37 U/L Alanine Aminotransferase 31 14-59 U/L Alkaline Phosphatase 91 46-116 U/L Total Protein 6.1 6.4-8.2 g/dL Albumin Level 3.0 3.4-5.0 g/dL Globulin 3.1 Albumin Globulin Ratio 1.0 Performing Lab: see note ML - [facility] LB Troponin I High Sensitivity Reviewed date:05/23/2024 08:52:32 AM Interpretation: Performing Lab: Notes/Report: [facility] , Troponin I High Sensitivity 84.3 4.0-51.3 pg/mL RESULTS CALLED TO ICU Josephine Colmenares RN @BY Modesto Tapia MT at 0629 CUT-OFF POINTS HAVE BEEN ESTABLISHED BASED ON THE FOURTH UNIVERSAL DEFINITION OF MYOCARDIAL INFARCTION. THE UPPER REFERENCE LIMIT (URL) OF TROPONIN, DEFINED THE 99TH PERCENTILE OF cTnI DISTRIBUTION IN A REFERENCE POPULATION, HAS BEEN CONFIRMED THE DECISION THRESHOLD FOR NC DIAGNOSIS. 99TH PERCENTILE = 51.4 PG/ML NOTE: HIGH-SENSITIVITY TROPONIN ASSAY IS NOT INTENDED TO BE USED IN ISOLATION BUT SHOULD BE INTERPRETED IN CONJUNCTION WITH OTHER DIAGNOSTIC AND CLINICAL INFORMATION. Performing Lab: see note ML - [facility] LB NM rachele perf SPECT rest str Reviewed date:05/23/2024 04:58:35 PM Interpretation: Performing Lab: Notes/Report: Source Facility: [place] [address] [place] [address] Nuclear Medicine Report Signed Patient: SHAHLA ARIAS MR#: [id number] : 1980 Acct:[id number] Age/Sex: 44 / F ADM Date: 05/21/24 Loc: ICU 273-[address]: Pat Mendez M.D. Ordering Physician: Pat Mendez M.D. Date of Service: 05/23/24 Procedure(s): NM rachele perf SPECT rest or str Accession Number(s): [id number] cc: JOSETTE MANDEL ; Pat Mendez M.D. Patient Name: SHAHLA ARIAS MR#: [id number] : 1980 Exam Date: 05/23/2024 Ordering Doctor: DR Pat Mendez . RADIOLOGY REPORT PROCEDURE: NM RACHELE PERF SPECT REST OR STR COMPARISON: None. INDICATIONS: cp TECHNIQUE: Exam Description: Stress Only two day protocol gated SPECT Rest Imagin.3 mCi Tc-99m Cardiolite IV on 04/29/2024 Stress Imaging 26.9 mCi Tc-99m Cardiolite IV on 05/23/2024 Exercise Protocol: 0.4 mg Lexiscan given IV Heart Rate (bpm): Rest: 88 Max: 107 PMHR: 61 Blood Pressure: Rest: 118/70 Max: 138/64 Symptoms: Rest and peak stress ECG findings were pending and the exercise portion of the study was pending per attending physician [facility]. For more details, please see separate cardiac stress test report. FINDINGS: QUALITY OF STUDY: Good PERFUSION DEFECT: LOCATION: Anterior SIZE: Moderate SEVERITY: Mild TYPE: Partially reversible, likely partly due to breast attenuation WALL MOTION: Normal wall motion LV SIZE: 100 mL. TID / TCD: 1.3 LVEF: Calculated EF 57%. SUMMARY: Myocardial perfusion imaging study is abnormal with soft tissue attenuation CONCLUSION: 1. Myocardial perfusion is abnormal with soft tissue attenuation 2. A partially reversible anterior perfusion defect suggestive of ischemia; this may be partly due to breast artifact 3. Transient ischemic dilation is seen; this may represent balanced ischemia and multi-vessel disease or hypertensive heart disease. This is associated with an increased risk for adverse cardiovascular events 4. Global left ventricular systolic function is normal Dictated by: Marivel Prince M.D. on 05/23/2024 at 14:00 Approved by: Marivel Prince M.D. on 05/23/2024 at 14:08 Dictated By: Marivel Prince M.D. Signed By: 05/23/24 1409 DD/ 1408 TD/TT: Reimbursement Liaison: [place] [address] Nuclear Medicine Report Signed Patient: SHAHLA ARIAS MR#: [id number] : 1980 Acct:[id number] Age/Sex: 44 / F ADM Date: 05/21/24 Loc: ICU 273-[address]: Zoe Mendez M.D. Ordering Physician: Pat Mendez M.D. Date of Service: 05/23/24 Procedure(s): NM rachele perf SPECT rest or str Accession Number(s): [id number] cc: JOSETTE MANDEL ; Pat Mendez M.D. Patient Name: SHAHLA ARIAS MR#: [id number] : 1980 Exam Date: 05/23/2024 Ordering Doctor: DR Pat Mendez . RADIOLOGY REPORT PROCEDURE: NM RACHELE PE RF SPECT REST OR STR COMPARISON: None. INDICATIONS: cp TECHNIQUE: Exam Description: St ress Only two day protocol gated SPECT Rest Imagin.3 m Ci Tc-99m Cardiolite IV on 04/29/2024 Stress Imaging 26.9 mCi Tc-99m Cardiolite IV on 05/23/2024 Exercise Protocol: 0 .4 mg Lexiscan given IV Heart Rate (bpm): Re st: 88 Max: 107 PMHR: 61 Blood Pressure: Rest : 118/70 Max: 138/64 Symptoms: Rest and peak stress ECG findings were pending and the exercise portion of the study was pending pe r attending physician [facility]. For more details, please see separate cardiac str ess test report. FINDINGS: QUALITY OF STUDY: Good PERFUSION DEFECT: LOCATION: Anterior SIZE: Moderate SEVERITY: Mild TYPE: Partially reversible, likely partly due to breast attenuation WALL MOTION: Normal wall motion LV SIZE: 100 mL. TID / TCD: 1.3 LVEF: Calculated EF 57%. SUMMARY: Myocardial perfusion imaging study is abnormal with soft tissue attenuation CONCLUSION: 1. Myocardial perfus ion is abnormal with soft tissue attenuation 2. A partially rever sible anterior perfusion defect suggestive of ischemia; this may be partly d ue to breast artifact 3. Transient ischemi c dilation is seen; this may represent balanced ischemia and multi-vessel dis ease or hypertensive heart disease. This is associated with an increased ri sk for adverse cardiovascular events 4. Global left ventricular systolic function is normal Dictated by: Marivel Prince M.D. on 05/23/2024 at 14:00 Approved by: Marivel Prince M.D. on 05/23/2024 at 14:08 Dictated By: Marivel Pricne M.D. Signed By: 05/23/24 1409 DD/ 1408 TD/TT: Reimbursement Liaison: CBC AUTO DIFF Reviewed date:05/22/2024 05:37:03 PM Interpretation: Performing Lab: Notes/Report: [facility] , White Blood Count 6.7 4.0-11.0 10 3/uL Red Blood Count 3.62 4.20-5.40 10 6/uL Hemoglobin 10.5 12.0-16.0 g/dL Hematocrit 31.9 36.0-48.0 % Mean Corpuscular Volume 88.1 81.0-99.0 fL Mean Corpuscular Hemoglobin 29.0 26.7-34.0 pg Mean Corpuscular HGB Conc 32.9 29.9-35.2 g/dL Red Cell Distribution Width 14.4 11.0-15.0 % Platelet Count 178 150-450 10 3/uL Mean Platelet Volume 10.4 9.5-13.5 fL Neutrophils Percent Auto 74.2 43.0-75.0 % Lymphocytes Percent Auto 14.4 20.5-60.0 % Monocytes Percent Auto 9.4 1.7-12.0 % Eosinophils Percent Auto 1.3 0.9-7.0 % Basophils Percent Auto 0.4 0.2-2.0 % Immature Granulocytes Pct Auto 0.3 0.0-0.5 % Neutrophils Absolute Auto 5.0 1.4-6.5 10 3/uL Lymphocytes Absolute Auto 1.0 1.2-3.8 10 3/uL Monocytes Absolute Auto 0.6 0.3-0.8 10 3/uL Eosinophils Absolute Auto 0.1 0.0-0.7 10 3/uL Basophils Absolute Auto 0.0 0.0-0.1 10 3/uL Immature Granulocytes Abs Auto 0.02 0.00-0.03 10 3/uL Performing Lab: see note ML - [facility] LB Troponin I High Sensitivity Reviewed date:05/21/2024 03:21:37 PM Interpretation: Performing Lab: Notes/Report: [facility] , Troponin I High Sensitivity 140.6 4.0-51.3 pg/mL RESULTS CALLED TO DR. CESAR PARRA at 1455 CUT-OFF POINTS HAVE BEEN ESTABLISHED BASED ON THE FOURTH UNIVERSAL DEFINITION OF MYOCARDIAL INFARCTION. THE UPPER REFERENCE LIMIT (URL) OF TROPONIN, DEFINED THE 99TH PERCENTILE OF cTnI DISTRIBUTION IN A REFERENCE POPULATION, HAS BEEN CONFIRMED THE DECISION THRESHOLD FOR NC DIAGNOSIS. 99TH PERCENTILE = 51.4 PG/ML NOTE: HIGH-SENSITIVITY TROPONIN ASSAY IS NOT INTENDED TO BE USED IN ISOLATION BUT SHOULD BE INTERPRETED IN CONJUNCTION WITH OTHER DIAGNOSTIC AND CLINICAL INFORMATION. Performing Lab: see note ML - [facility] LB PROF 14(COMP METB) Reviewed date:05/21/2024 02:50:55 PM Interpretation: Performing Lab: Notes/Report: [facility] , Sodium 137 136-145 mmol/L Potassium 3.5 3.5-5.1 mmol/L Chloride 99 98-107 mmol/L Carbon Dioxide 25.1 21.0-32.0 mmol/L Anion Gap 16.4 Glucose 118 74-106 mg/dL Blood Urea Nitrogen 29.0 7.0-18.0 mg/dL Creatinine 2.24 0.55-1.02 mg/dL Estimated GFR ( Kaylan 29 >=60 mL/min/1.73m 2 Estimated GFR (Non- Trinity 24 >=60 mL/min/1.73m 2 BUN Creatinine Ratio 12.9 Calcium 9.0 8.5-10.1 mg/dL Bilirubin Total 1.0 0.2-1.0 mg/dL Aspartate Amino Transferase 39 15-37 U/L Alanine Aminotransferase 43 14-59 U/L Alkaline Phosphatase 97 46-116 U/L Total Protein 7.4 6.4-8.2 g/dL Albumin Level 3.5 3.4-5.0 g/dL Globulin 3.9 Albumin Globulin Ratio 0.9 Performing Lab: see note ML - [facility] LB PREG QUANT HCG Reviewed date:05/21/2024 03:54:22 PM Interpretation: Performing Lab: Notes/Report: [facility] , HCG Quantitative 7 5-50 0.2-1 WEEK 50-500 1-2 WEEKS 100-5,000 2-3 WEEKS 500-10,000 3-4 WEEKS 1,000-50,000 4-5 WEEKS 10,000-100,000 5-6 WEEKS 15,000-200,000 6-8 WEEKS 10,000-100,000 2-3 MONTHS Performing Lab: see note ML - [facility] LB CBC AUTO DIFF Reviewed date:05/21/2024 02:46:29 PM Interpretation: Performing Lab: Notes/Report: [facility] , White Blood Count 8.0 4.0-11.0 10 3/uL Red Blood Count 4.42 4.20-5.40 10 6/uL Hemoglobin 13.2 12.0-16.0 g/dL Hematocrit 39.2 36.0-48.0 % Mean Corpuscular Volume 88.7 81.0-99.0 fL Mean Corpuscular Hemoglobin 29.9 26.7-34.0 pg Mean Corpuscular HGB Conc 33.7 29.9-35.2 g/dL Red Cell Distribution Width 14.3 11.0-15.0 % Platelet Count 278 150-450 10 3/uL Mean Platelet Volume 10.3 9.5-13.5 fL Neutrophils Percent Auto 70.2 43.0-75.0 % Lymphocytes Percent Auto 18.2 20.5-60.0 % Monocytes Percent Auto 9.2 1.7-12.0 % Eosinophils Percent Auto 1.5 0.9-7.0 % Basophils Percent Auto 0.6 0.2-2.0 % Immature Granulocytes Pct Auto 0.3 0.0-0.5 % Neutrophils Absolute Auto 5.6 1.4-6.5 10 3/uL Lymphocytes Absolute Auto 1.5 1.2-3.8 10 3/uL Monocytes Absolute Auto 0.7 0.3-0.8 10 3/uL Eosinophils Absolute Auto 0.1 0.0-0.7 10 3/uL Basophils Absolute Auto 0.1 0.0-0.1 10 3/uL Immature Granulocytes Abs Auto 0.02 0.00-0.03 10 3/uL Performing Lab: see note ML - [facility] Troponin I High Sensitivity Reviewed date:02/14/2024 01:04:38 PM Interpretation: Performing Lab: Notes/Report: [facility] , Troponin I High Sensitivity 46.7 4.0-51.3 pg/mL CUT-OFF POINTS HAVE BEEN ESTABLISHED BASED ON THE FOURTH UNIVERSAL DEFINITION OF MYOCARDIAL INFARCTION. THE UPPER REFERENCE LIMIT (URL) OF TROPONIN, DEFINED THE 99TH PERCENTILE OF cTnI DISTRIBUTION IN A REFERENCE POPULATION, HAS BEEN CONFIRMED THE DECISION THRESHOLD FOR NC DIAGNOSIS. 99TH PERCENTILE = 51.4 PG/ML NOTE: HIGH-SENSITIVITY TROPONIN ASSAY IS NOT INTENDED TO BE USED IN ISOLATION BUT SHOULD BE INTERPRETED IN CONJUNCTION WITH OTHER DIAGNOSTIC AND CLINICAL INFORMATION. Performing Lab: see note ML - [facility] LB PROF CHEM 8 (BAS METB) Reviewed date:02/14/2024 01:04:38 PM Interpretation: Performing Lab: Notes/Report: [facility] , Sodium 143 136-145 mmol/L Potassium 4.5 3.5-5.1 mmol/L Chloride 111 98-107 mmol/L Carbon Dioxide 25.0 21.0-32.0 mmol/L Anion Gap 11.5 Glucose 103 74-106 mg/dL Blood Urea Nitrogen 14.0 7.0-18.0 mg/dL Creatinine 1.08 0.55-1.02 mg/dL Estimated GFR ( Kaylan >60 >=60 mL/min/1.73m 2 Estimated GFR (Non- Trinity 55 >=60 mL/min/1.73m 2 BUN Creatinine Ratio 13.0 Calcium 8.4 8.5-10.1 mg/dL Performing Lab: see note ML - [facility] CA echo limited Reviewed date:02/13/2024 08:30:42 PM Interpretation: Performing Lab: Notes/Report: Source Facility: [place] [address] Cardiology Report Signed Patient: SHAHLA ARIAS MR#: [id number] : 1980 Acct:[id number] Age/Sex: 44 / F ADM Date: 02/12/24 Loc: MS 218-[address]: Pat Mendez M.D. Ordering Physician: Pat Mendez M.D. Date of Service: 02/13/24 Procedure(s): CA echo limited Accession Number(s): [id number] cc: JOSETTE MANDEL ; Pat Mendez M.D. Patient Name: SHAHLA ARIAS MR#: [id number] : 1980 Exam Date: 02/13/2024 Ordering Doctor: DR PAT MENDEZ . ECHOCARDIOGRAM REPORT PROCEDURE: CA ECHO LIMITED INDICATIONS: Dyspnea COMPARISON: None. DESCRIPTION: Limited ECHOCARDIOGRAM Real-time transthoracic echocardiography with 2D and M-mode performed. QUALITY: Technical quality was limited. LEFT VENTRICLE: Normal chamber size. Normal left ventricular wall thickness. Global left ventricular systolic function is normal. Visual estimation of left ventricular ejection fraction is 55-60%. LV EF: Normal left ventricular ejection fraction, (>55%). DIASTOLIC: ATRIAL SEPTUM: LEFT ATRIUM: Normal chamber size. RIGHT ATRIUM: Normal chamber size. RIGHT VENTRICLE: Normal chamber size. Normal right ventricular systolic function. TRICUSPID VALVE: Normal mobility and thickness. MITRAL VALVE: Normal mobility and thickness. There is no mitral annular calcification. AORTIC VALVE: Normal leaflet mobility. AORTIC ROOT: Normal diameter and appearance. PULMONIC VALVE: Not well visualized. PERICARDIUM: No evidence of pericardial effusion. IVC: Collapses with inspirations. PLEURA: CONCLUSION: 1. Normal ventricular systolic function. LVEF is estimated at 55 to 60%. 2. No pericardial effusion. 3. Limited study performed with no Doppler interrogation as requested. Adult Echocardiography Procedure Report Left Ventricle LVEDD (3.7 - 5.6 cm): 4.01 cm LVESD (2.2 - 4.0 cm): 2.69 cm LVIVS thickness (0.6 - 1.2 cm): 1.14 cm LVPW thickness (0.5 - 1.0 cm): 1.18 cm LVOT Diameter 1.86 cm Left Atrium LA Volume Index (2D A2C): 27.43 ml/m2 Left Atrium Systolic Dimension: 4.65 cm Mitral Valve Right Ventricle RV Internal Diastolic Dimension: 3.16 cm Aorta AO Root Diam: 3.03 cm Aortic Valve Tricuspid Valve Pulmonic Valve Right Atrium Right Atrium Systolic Pressure: 31.40 ml, 31.40 ml Dictated by: Demetria Clark M.D. on 02/13/2024 at 19:27 Approved by: Demetria Clark M.D. on 02/13/2024 at 19:28 Dictated By: DEMETRIA CLARK Signed By: 02/13/241929 DD/ 27 TD/TT: Reimbursement Liaison: [place] [address] Cardiology Report Signed Patient: SHAHLA ARIAS MR#: [id number] : 1980 Acct:[id number] Age/Sex: 44 / F ADM Date: 02/12/24 Loc: MS 218-[address]: Zoe Mendez M.D. Ordering Physician: Pat Mendez M.D. Date of Service: 02/13/24 Procedure(s): CA ech o limited Accession Number(s): [id number] cc: JOSETTE MANDEL ; Pat Mendez M.D. Patient Name: SHAHLA ARIAS MR#: [id number] : 1980 Exam Date: 02/13/2024 Ordering Doctor: DR PAT MENDEZ . ECHOCARDIOGRAM REPORT PROCEDURE: CA ECHO LIMITED INDICATIONS: Dyspnea COMPARISON: None. DESCRIPTION: Limited ECHOCARDIOGRAM Real-time transthoracic echocardiography wit h 2D and M-mode performed. QUALITY: Technical quality was limited. LEFT VENTRICLE: Norm al chamber size. Normal left ventricular wall thickness. Global le ft ventricular systolic function is normal. Visual estimation of left ventricular ejection fraction is 55-60%. LV EF: Normal left ventricular ejection fraction, (>55%). DIASTOLIC: ATRIAL SEPTUM: LEFT ATRIUM: Normal chamber size. RIGHT ATRIUM: Normal chamber size. RIGHT VENTRICLE: Nor mal chamber size. Normal right ventricular systolic function. TRICUSPID VALVE: Nor mal mobility and thickness. MITRAL VALVE: Normal mobility and thickness. There is no mitral annular calcification. AORTIC VALVE: Normal leaflet mobility. AORTIC ROOT: Normal diameter and appearance. PULMONIC VALVE: Not well visualized. PERICARDIUM: No evid ence of pericardial effusion. IVC: Collapses with inspirations. PLEURA: CONCLUSION: 1. Normal ventricula r systolic function. LVEF is estimated at 55 to 60%. 2. No pericardial effusion. 3. Limited study performed with no Doppler interrogation as requested. Adult Echocardiograp hy Procedure Report Left Ventricle LVEDD (3.7 - 5.6 cm) : 4.01 cm LVESD (2.2 - 4.0 cm) : 2.69 cm LVIVS thickness (0.6 - 1.2 cm): 1.14 cm LVPW thickness (0.5 - 1.0 cm): 1.18 cm LVOT Diameter 1.86 cm Left Atrium LA Volume Index (2D A2C): 27.43 ml/m2 Left Atrium Systolic Dimension: 4.65 cm Mitral Valve Right Ventricle RV Internal Diastoli c Dimension: 3.16 cm Aorta AO Root Diam: 3.03 cm Aortic Valve Tricuspid Valve Pulmonic Valve Right Atrium Right Atrium Systoli c Pressure: 31.40 ml, 31.40 ml Dictated by: Demetria Clark M.D. on 02/13/2024 at 19:27 Approved by: Demetria Clark M.D. on 02/13/2024 at 19:28 Dictated By: DEMETRIA CLARK Signed By: 02/13/241929 DD/ 27 TD/TT: Reimbursement Liaison: BNP Reviewed date:02/13/2024 11:41:33 AM Interpretation: Performing Lab: Notes/Report: [facility] , NT Pro B Type Natriuretic Pept 218.0 <=450.0 pg/mL Performing Lab: see note ML - [facility] LB Troponin I High Sensitivity Reviewed date:02/13/2024 11:41:33 AM Interpretation: Performing Lab: Notes/Report: [facility] , Troponin I High Sensitivity 60.3 4.0-51.3 pg/mL RESULTS CALLED TO NEREIDA CHONG RN CUT-OFF POINTS HAVE BEEN ESTABLISHED BASED ON THE FOURTH UNIVERSAL DEFINITION OF MYOCARDIAL INFARCTION. THE UPPER REFERENCE LIMIT (URL) OF TROPONIN, DEFINED THE 99TH PERCENTILE OF cTnI DISTRIBUTION IN A REFERENCE POPULATION, HAS BEEN CONFIRMED THE DECISION THRESHOLD FOR NC DIAGNOSIS. 99TH PERCENTILE = 51.4 PG/ML NOTE: HIGH-SENSITIVITY TROPONIN ASSAY IS NOT INTENDED TO BE USED IN ISOLATION BUT SHOULD BE INTERPRETED IN CONJUNCTION WITH OTHER DIAGNOSTIC AND CLINICAL INFORMATION. Performing Lab: see note ML - [facility] LB PROF 14(COMP METB) Reviewed date:02/13/2024 11:41:33 AM Interpretation: Performing Lab: Notes/Report: [facility] , Sodium 142 136-145 mmol/L Potassium 4.1 3.5-5.1 mmol/L Chloride 110 98-107 mmol/L Carbon Dioxide 24.0 21.0-32.0 mmol/L Anion Gap 12.1 Glucose 110 74-106 mg/dL Blood Urea Nitrogen 25.0 7.0-18.0 mg/dL Creatinine 1.50 0.55-1.02 mg/dL Estimated GFR ( Kaylan 45 >=60 mL/min/1.73m 2 Estimated GFR (Non- Trinity 37 >=60 mL/min/1.73m 2 BUN Creatinine Ratio 16.7 Calcium 8.4 8.5-10.1 mg/dL Bilirubin Total 0.3 0.2-1.0 mg/dL Aspartate Amino Transferase 14 15-37 U/L Alanine Aminotransferase 18 14-59 U/L Alkaline Phosphatase 85 46-116 U/L Total Protein 6.2 6.4-8.2 g/dL Albumin Level 2.4 3.4-5.0 g/dL Globulin 3.8 Albumin Globulin Ratio 0.6 Performing Lab: see note ML - [facility] LB MAGNESIUM Reviewed date:02/13/2024 11:41:33 AM Interpretation: Performing Lab: Notes/Report: [facility] , Magnesium 2.3 1.8-2.4 mg/dL Performing Lab: see note ML - [facility] LB LIPID PROFILE Reviewed date:02/13/2024 11:41:33 AM Interpretation: Performing Lab: Notes/Report: [facility] , Triglycerides 80 <=150 mg/dL Cholesterol 124 <=200 mg/dL HDL Cholesterol 35 40-60 mg/dL > or =60 mg/dl - LOW CARDIOVASCULAR RISK <40 mg/dl - HIGH CARDIOVASCULAR RISK LDL Cholesterol Calculated 73.0 <100 mg/dl OPTIMAL 100-129 mg/dl NEAR OR ABOVE OPTIMAL 130-159 mg/dl BORDERLINE HIGH 160-189 mg/dl HIGH >190 mg/dl VERY HIGH VLDL CHOLESTEROL 16.0 Chol HDL Ratio 3.5 3.3 - 4.4 LOW RISK 4.4 - 7.1 AVERAGE RISK 7.1 - 11.0 MODERATE RISK >11.0 HIGH RISK Performing Lab: see note ML - [facility] LB GLYCOHEMOGLOBIN A1C Reviewed date:02/13/2024 11:41:33 AM Interpretation: Performing Lab: Notes/Report: [facility] , Glycohemoglobin A1C 6.0 4.5-6.2 % ADA RECOMMENDED LIMIT 4.0 - 6.0 ADA THERAPEUTIC TARGET < 7.0 ACTION SUGGESTED > 7.0 Estimated Average Glucose 126 Performing Lab: see note ML - [facility] LB CBC AUTO DIFF Reviewed date:02/13/2024 11:41:33 AM Interpretation: Performing Lab: Notes/Report: [facility] , White Blood Count 6.0 4.0-11.0 10 3/uL Red Blood Count 3.45 4.20-5.40 10 6/uL Hemoglobin 10.0 12.0-16.0 g/dL Hematocrit 31.3 36.0-48.0 % Mean Corpuscular Volume 90.7 81.0-99.0 fL Mean Corpuscular Hemoglobin 29.0 26.7-34.0 pg Mean Corpuscular HGB Conc 31.9 29.9-35.2 g/dL Red Cell Distribution Width 14.6 11.0-15.0 % Platelet Count 208 150-450 10 3/uL Mean Platelet Volume 9.8 9.5-13.5 fL Neutrophils Percent Auto 69.2 43.0-75.0 % Lymphocytes Percent Auto 21.6 20.5-60.0 % Monocytes Percent Auto 8.0 1.7-12.0 % Eosinophils Percent Auto 0.2 0.9-7.0 % Basophils Percent Auto 0.7 0.2-2.0 % Immature Granulocytes Pct Auto 0.3 0.0-0.5 % Neutrophils Absolute Auto 4.1 1.4-6.5 10 3/uL Lymphocytes Absolute Auto 1.3 1.2-3.8 10 3/uL Monocytes Absolute Auto 0.5 0.3-0.8 10 3/uL Eosinophils Absolute Auto 0.0 0.0-0.7 10 3/uL Basophils Absolute Auto 0.0 0.0-0.1 10 3/uL Immature Granulocytes Abs Auto 0.02 0.00-0.03 10 3/uL Performing Lab: see note - [facility] LB Aerobe ID + Suscept Reviewed date:02/18/2024 05:09:02 PM Interpretation: Performing Lab: Notes/Report: ANAEROBIC BOTTLE POSITIVE [facility] , Aerobe ID + Suscept See Below For Report Aerobe ID + Suscept WILL FOLLOW O:BACSPP Isolated Aerobe ID + Suscept Aerobe ID + Suscept WILL FOLLOW O:BACSPP Isolated Aerobe ID + Suscept Specimen has been received and testing has been initiated. Aerobe ID + Suscept WILL FOLLOW O:BACSPP Isolated Aerobe ID + Suscept Organism: Bacillus species : Aerobe ID + Suscept WILL FOLLOW O:BACSPP Isolated Aerobe ID + Suscept *ABNORMAL* Aerobe ID + Suscept WILL FOLLOW O:BACSPP Isolated Aerobe ID + Suscept Received anaerobic b ottle only. Aerobe ID + Suscept WILL FOLLOW O:BACSPP Isolated Aerobe ID + Suscept Susceptibility not normally performed on this organism. Aerobe ID + Suscept WILL FOLLOW O:BACSPP Isolated Aerobe ID + Suscept Bacillus species Aerobe ID + Suscept WILL FOLLOW O:BACSPP Isolated Aerobe ID + Suscept See Below For Report Aerobe ID + Suscept WILL FOLLOW O:BACSPP Isolated Performing Lab: see note LC - [facility] LB Anaerobe Identification Only Reviewed date:02/18/2024 05:09:02 PM Interpretation: Performing Lab: Notes/Report: ANAEROBIC BOTTLE POSITIVE [facility] , Anaerobe Identification Only See Below For Report Anaerobe Identification Only Anaerobe Identification Only Specimen has been received and testing has been initiated. Anaerobe Identification Only Anaerobe Identification Only No anaerobes recovered. Anaerobe Identification Only Anaerobe Identification Only Anaerobe Identification Only Anaerobe Identification Only No anaerobes recovered. Anaerobe Identification Only Anaerobe Identification Only Performed at: [facility] Anaerobe Identification Only Anaerobe Identification Only [address], [place] [id number] Anaerobe Identification Only Anaerobe Identification Only Cobol Programmer: Jan So PhD, Phone: [phone] Anaerobe Identification Only Anaerobe Identification Only Anaerobe Identification Only Anaerobe Identification Only * This is a corrected result. * Anaerobe Identification Only Anaerobe Identification Only Anaerobe Identification Only Anaerobe Identification Only A prior result that was reported as final has been changed. Anaerobe Identification Only [facility]forming Lab: [facility] Id information not found for OBX-specific morning show producer legend Urine Culture, Routine Reviewed date:02/15/2024 09:51:53 AM Interpretation: Performing Lab: Notes/Report: [facility] , Urine Culture, Routine See Below For Report Urine Culture, Routine Urine Culture, Routine Mixed urogenital carmelina Urine Culture, Routine Urine Culture, Routine Less than 10,000 colonies/mL Urine Culture, Routine Urine Culture, Routine Performed at: [facility] Urine Culture, Routine Urine Culture, Routine [address], [place] [id number] Urine Culture, Routine Urine Culture, Routine Cobol Programmer: Geovani So PhD, Phone: [phone] Urine Culture, Routine Performing Lab: see note [facility] SEE REPORT - [facility] Id information not found for OBX-specific morning show producer legend Venous Blood Gas Reviewed date:02/13/2024 11:41:33 AM Interpretation: Performing Lab: Notes/Report: [facility] , pH VBG 7.294 7.330-7.430 PCO2 VBG 49.5 40.0-52.0 mmHg Performing Lab: see note ML - [facility] LB Troponin I High Sensitivity Reviewed date:02/13/2024 11:41:33 AM Interpretation: Performing Lab: Notes/Report: [facility] , Troponin I High Sensitivity 62.3 4.0-51.3 pg/mL RESULTS CALLED TO YI BLANKENSHIP RN CUT-OFF POINTS HAVE BEEN ESTABLISHED BASED ON THE FOURTH UNIVERSAL DEFINITION OF MYOCARDIAL INFARCTION. THE UPPER REFERENCE LIMIT (URL) OF TROPONIN, DEFINED THE 99TH PERCENTILE OF cTnI DISTRIBUTION IN A REFERENCE POPULATION, HAS BEEN CONFIRMED THE DECISION THRESHOLD FOR NC DIAGNOSIS. 99TH PERCENTILE = 51.4 PG/ML NOTE: HIGH-SENSITIVITY TROPONIN ASSAY IS NOT INTENDED TO BE USED IN ISOLATION BUT SHOULD BE INTERPRETED IN CONJUNCTION WITH OTHER DIAGNOSTIC AND CLINICAL INFORMATION. Performing Lab: see note ML - [facility] LB Blood Culture 1 Reviewed date:02/18/2024 05:09:02 PM Interpretation: Performing Lab: Notes/Report: RIGHT AC [facility] , Blood Culture 1 See Below For Report Blood Culture 1 NG5D NO GROWTH AT 5 DAYS. Performing Lab: see note ML - [facility] LB TSH Reviewed date:02/13/2024 11:41:33 AM Interpretation: Performing Lab: Notes/Report: [facility] , Thyroid Stimulating Hormone 2.366 0.358-3.740 uIU/mL Performing Lab: see note - [facility] LB PROF 14(COMP METB) Reviewed date:02/13/2024 11:41:33 AM Interpretation: Performing Lab: Notes/Report: [facility] , Sodium 141 136-145 mmol/L Potassium 3.6 3.5-5.1 mmol/L Chloride 107 98-107 mmol/L Carbon Dioxide 26.4 21.0-32.0 mmol/L Anion Gap 11.2 Glucose 123 74-106 mg/dL Blood Urea Nitrogen 34.0 7.0-18.0 mg/dL Creatinine 2.24 0.55-1.02 mg/dL Estimated GFR ( Kaylan 29 >=60 mL/min/1.73m 2 Estimated GFR (Non- Trinity 24 >=60 mL/min/1.73m 2 BUN Creatinine Ratio 15.2 Calcium 8.4 8.5-10.1 mg/dL Bilirubin Total 0.4 0.2-1.0 mg/dL Aspartate Amino Transferase 15 15-37 U/L Alanine Aminotransferase 17 14-59 U/L Alkaline Phosphatase 78 46-116 U/L Total Protein 6.0 6.4-8.2 g/dL Albumin Level 2.4 3.4-5.0 g/dL Globulin 3.6 Albumin Globulin Ratio 0.7 Performing Lab: see note ML - [facility] CA echo doppler complete Reviewed date:09/11/2023 04:59:56 PM Interpretation: Performing Lab: Notes/Report: Source Facility: [place] [address] Cardiology Report Signed Patient: SHAHLA ARIAS MR#: [id number] : 1980 Acct:[id number] Age/Sex: 43 / F ADM Date: 09/06/23 Loc: CARD Attending Dr: BENITO PRADO Ordering Physician: BENITO PRADO Date of Service: 09/06/23 Procedure(s): CA echo doppler complete Accession Number(s): [id number] cc: BENITO PRADO; JOSETTE MANDEL Patient Name: SHAHLA ARIAS MR#: [id number] : 1980 Exam Date: 09/06/2023 Ordering Doctor: BENITO PRADO M.D. ECHOCARDIOGRAM REPORT PROCEDURE: CA ECHO DOPPLER COMPLETE INDICATIONS: Palpitations, hypertension, diabetes, smoker COMPARISON: None. DESCRIPTION: COMPLETE ECHOCARDIOGRAM Real-time transthoracic echocardiography with 2D, M-mode, spectral and color flow Doppler performed. QUALITY: Technically difficult due to patients condition. Poor sound transmission. LEFT VENTRICLE: Normal chamber size. Thickened septal wall. LV EF: Visual estimation of left ventricular ejection fraction is 55-60%. DIASTOLIC: Normal diastolic function. ATRIAL SEPTUM: Visually appears intact. LEFT ATRIUM: Normal chamber size. RIGHT ATRIUM: Normal chamber size. RIGHT VENTRICLE: Normal chamber size. Normal right ventricular systolic function. TRICUSPID VALVE: Normal mobility and thickness. No stenosis with no regurgitation. Unable to assess right-sided pressures due to lack of measurable tricuspid regurgitation. MITRAL VALVE: Normal mobility and thickness. No evidence of mitral valve stenosis. Mild mitral annular calcification. No mitral regurgitation. AORTIC VALVE: Not well visualized. No evidence of aortic valve stenosis. No aortic regurgitation. AORTIC ROOT: Normal diameter and appearance. PULMONIC VALVE: Not well visualized. No regurgitation. PERICARDIUM: No evidence of pericardial effusion. IVC: Within normal limits. PLEURA: CONCLUSION: 1. Technically limited study due to patient's condition and poor sound transmission. 2. The left ventricle appears to be normal in size with normal systolic function. LVEF is estimated at 55 to 60%. 3. Normal right ventricular size and systolic function. 4. No significant valvular dysfunction. 5. Unable to assess right-sided pressures due to lack of measurable tricuspid regurgitation. Adult Echocardiography Procedure Report Left Ventricle LVEDD (3.7 - 5.6 cm): 3.86 cm LVESD (2.2 - 4.0 cm): 2.87 cm LVIVS thickness (0.6 - 1.2 cm): 1.54 cm LVPW thickness (0.5 - 1.0 cm): 1.12 cm e': 0.09 m/s E - e': 6.44 LVOT Max Gradient: 8.78 mm[Hg] LVOT Area (cm2): 1.48 m/s Peak Velocity (LVOT): 1.48 m/s Mean Velocity (LVOT): 0.90 m/s LVOT Diameter 1.90 cm Left Atrium LA Volume Index (2D A2C): 26.91 ml/m2 Left Atrium Systolic Dimension: 3.32 cm Mitral Valve MV E to A Ratio: 0.61 Mitral Valve A-Wave Peak Velocity: 0.98 m/s Mitral Valve E-Wave Peak Velocity: 0.59 m/s Right Ventricle Aorta AO Root Diam: 3.03 cm Aortic Valve AoV Area (Peak Chaparro): 2.43 cm2, 2.43 cm2 AoV Area (VTI): 2.69 cm2, 2.69 cm2 Peak Velocity(Antegrade Flow): 1.73 m/s Peak Gradient(Antegrade Flow): 11.94 mm[Hg] Mean Velocity(Antegrade Flow): 1.12 m/s Mean Gradient(Antegrade Flow): 6.07 mm[Hg] Velocity Time Integral: 26.12 cm Tricuspid Valve Pulmonic Valve Peak Velocity: 1.01 m/s Peak Gradient: 3.49 mm[Hg], 4.65 mm[Hg] Right Atrium Right Atrium Systolic Pressure: 37.39 ml, 37.39 ml Dictated by: Demetria Clark M.D. on 09/08/2023 at 09:08 Approved by: Demetria Clark M.D. on 09/08/2023 at 09:11 Dictated By: DEMETRIA CLARK Signed By: 09/08/23912 DD/ 0 TD/TT: Reimbursement Liaison: [place] [address] Cardiology Report Signed Patient: SHAHLA ARIAS MR#: [id number] : 1980 Acct:[id number] Age/Sex: 43 / F ADM Date: 09/06/23 Loc: CARD Attending Dr: RODOLFO PRADO Ordering Physician: BENITO PRADO Date of Service: 09/06/23 Procedure(s): CA ech o doppler complete Accession Number(s): [id number] cc: JUANITA PRADO; JOSETTE MANDEL Patient Name: SHAHLA ARIAS MR#: [id number] : 1980 Exam Date: 09/06/2023 Ordering Doctor: LAKEISHA PRADO M.D. ECHOCARDIOGRAM REPORT PROCEDURE: CA ECHO DOPPLER COMPLETE INDICATIONS: Palpitations, hypertension, diabetes, smoker COMPARISON: None. DESCRIPTION: COMPLET E ECHOCARDIOGRAM Real-time transthoracic echocardiography wit h 2D, M-mode, spectral and color flow Doppler performed. QUALITY: Technically difficult due to patients condition. Poor sound transmission. LEFT VENTRICLE: Norm al chamber size. Thickened septal wall. LV EF: Visual estima tion of left ventricular ejection fraction is 55-60%. DIASTOLIC: Normal diastolic function. ATRIAL SEPTUM: Visua lly appears intact. LEFT ATRIUM: Normal chamber size. RIGHT ATRIUM: Normal chamber size. RIGHT VENTRICLE: Nor mal chamber size. Normal right ventricular systolic function. TRICUSPID VALVE: Nor mal mobility and thickness. No stenosis with no regurgitation. Unabl e to assess right-sided pressures due to lack of measurable tricuspid regurgitation. MITRAL VALVE: Normal mobility and thickness. No evidence of mitral valve stenosis. Mild sasha l annular calcification. No mitral regurgitation. AORTIC VALVE: Not we ll visualized. No evidence of aortic valve stenosis. No aortic regurgitation. AORTIC ROOT: Normal diameter and appearance. PULMONIC VALVE: Not well visualized. No regurgitation. PERICARDIUM: No evid ence of pericardial effusion. IVC: Within normal limits. PLEURA: CONCLUSION: 1. Technically limit ed study due to patient's condition and poor sound transmission. 2. The left ventricl e appears to be normal in size with normal systolic function. LVEF is estimated at 55 to 60%. 3. Normal right ventricular size and systolic function. 4. No significant valvular dysfunction. 5. Unable to assess right-sided pressures due to lack of measurable tricuspid regurgitation. Adult Echocardiograp hy Procedure Report Left Ventricle LVEDD (3.7 - 5.6 cm) : 3.86 cm LVESD (2.2 - 4.0 cm) : 2.87 cm LVIVS thickness (0.6 - 1.2 cm): 1.54 cm LVPW thickness (0.5 - 1.0 cm): 1.12 cm e': 0.09 m/s E - e': 6.44 LVOT Max Gradient: 8 .78 mm[Hg] LVOT Area (cm2): 1.48 m/s Peak Velocity (LVOT) : 1.48 m/s Mean Velocity (LVOT) : 0.90 m/s LVOT Diameter 1.90 cm Left Atrium LA Volume Index (2D A2C): 26.91 ml/m2 Left Atrium Systolic Dimension: 3.32 cm Mitral Valve MV E to A Ratio: 0.61 Mitral Valve A-Wave Peak Velocity: 0.98 m/s Mitral Valve E-Wave Peak Velocity: 0.59 m/s Right Ventricle Aorta AO Root Diam: 3.03 cm Aortic Valve AoV Area (Peak Chaparro): 2.43 cm2, 2.43 cm2 AoV Area (VTI): 2.69 cm2, 2.69 cm2 Peak Velocity(Antegr jordan Flow): 1.73 m/s Peak Gradient(Antegr jordan Flow): 11.94 mm[Hg] Mean Velocity(Antegr jordan Flow): 1.12 m/s Mean Gradient(Antegr jordan Flow): 6.07 mm[Hg] Velocity Time Integr al: 26.12 cm Tricuspid Valve Pulmonic Valve Peak Velocity: 1.01 m/s Peak Gradient: 3.49 mm[Hg], 4.65 mm[Hg] Right Atrium Right Atrium Systoli c Pressure: 37.39 ml, 37.39 ml Dictated by: Demetria Clark M.D. on 09/08/2023 at 09:08 Approved by: Demetria Clark M.D. on 09/08/2023 at 09:11 Dictated By: DEMETRIA CLARK Signed By: 09/08/23912 DD/ 0 TD/TT: Reimbursement Liaison: CBC AUTO DIFF Reviewed date:05/23/2024 08:52:32 AM Interpretation: Performing Lab: Notes/Report: [facility] , White Blood Count 5.8 4.0-11.0 10 3/uL Red Blood Count 3.48 4.20-5.40 10 6/uL Hemoglobin 10.1 12.0-16.0 g/dL Hematocrit 30.7 36.0-48.0 % Mean Corpuscular Volume 88.2 81.0-99.0 fL Mean Corpuscular Hemoglobin 29.0 26.7-34.0 pg Mean Corpuscular HGB Conc 32.9 29.9-35.2 g/dL Red Cell Distribution Width 14.6 11.0-15.0 % Platelet Count 210 150-450 10 3/uL Mean Platelet Volume 10.4 9.5-13.5 fL Neutrophils Percent Auto 68.4 43.0-75.0 % Lymphocytes Percent Auto 20.2 20.5-60.0 % Monocytes Percent Auto 9.0 1.7-12.0 % Eosinophils Percent Auto 1.9 0.9-7.0 % Basophils Percent Auto 0.3 0.2-2.0 % Immature Granulocytes Pct Auto 0.2 0.0-0.5 % Neutrophils Absolute Auto 4.0 1.4-6.5 10 3/uL Lymphocytes Absolute Auto 1.2 1.2-3.8 10 3/uL Monocytes Absolute Auto 0.5 0.3-0.8 10 3/uL Eosinophils Absolute Auto 0.1 0.0-0.7 10 3/uL Basophils Absolute Auto 0.0 0.0-0.1 10 3/uL Immature Granulocytes Abs Auto 0.01 0.00-0.03 10 3/uL Performing Lab: see note ML - [facility] Reason For Referral Reason Sleep study Diagnosis 1 SHARI (obstructive sle ep apnea) (G47.33) Referral Organization [facility] Referring Provider First Name Josette Referring Provider Last Name Kelly Referring Provider Speciality Family Shamir stringer Referred Provider Johana Booth Referred Provider Specialty Sleep Medici ne Referral Priority Routine Medications Medication SIG (Take, Route, Frequency, Duration) Notes Start Date End Date Status Atorvastatin Calcium 40 MG take 1 tablet by mouth once daily Oral Once a day for 90 days Active ZyPREXA 5 MG 1 tablet Orally TID Active Clopidogrel Bisulfate 75 MG 1 tablet Ora lly Once a day for 30 days Active Aspirin 81 81 MG 1 tablet Orally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
--- OUTSIDE RECORDS SUMMARY | 2024-08-07 12:06 | XMS_ITS | Encounter Summary ---
Author Organization [employer] Sys tem Address [facility]-[id number] [address] [place] [address] Care Team Providers Care Lining Strap Closer Name Role Phone Josette Mendoza CHUCKING AND BORING MACHINE OPERATOR-DISASTER RECOVERY COORDINATOR Primary Care Provider Encounter Details Date Type Department Care Team (Late st Contact Info) Description 06/01/2023 Orders Only [facility] [address] [place] [address] Ana Luisa Brown CMA Abnormal CT scan Social History Tobacco Use Types Packs/Day Years [...] Never 05/31/2020 How often do you attend amish or latter day serv ices? Never 05/31/2020 Do you belong to any clubs o r organizations such as amish groups, unions, fraternal or athletic groups, or [...] 05/31/2020 PHQ-2 Answer Date Recorded Total Score 0 05/31/2020 [facility] of Occupat ional Health - Occupational Stress [...] things needed for daily living? No 05/31/2020 [place] Depression Scale Answer Date Recorded [place] Depression Scale Total 11 05/19/2019 The thought of harming myself has occurred to me . Never 05/19/2019 Childcare Answer Date Recorded Do problems getting child ca re make it difficult for you to work or study? No 05/31/2020 Employment Answer Date Recorded Do you need help finding a [facility] career center and/or a training program? No 05/31/2020 Hunger Screening Answer Date Recorded Within the past 12 months we worried whether our food would run out before we got money to buy more. Never True 06/22/2022 Within the past 12 months th e food we bought just didn't last and we didn't have money to get more. Never True 06/22/2022 Purpose - Life Answer Date Recorded I [...] on file documented as of this encounter Visit Diagnoses Diagnosis Abnormal CT scan Other nonspecific (abnormal) findings on radiological and other examinations of body structure documented in this encounter Additional Health Concerns Assessment Noted Time PHQ-9 Depression Total Score: 0 06/01/19 10:58 PM EDT A Body Mass Index follow-up plan has been documented for the patient 06/22/2022 11:05 AM EDT documented as of this encounter Care Teams Lining Strap Closer Relationship Specialty Start Date End Date Josette Mendoza, CHUCKING AND BORING MACHINE OPERATOR-DISASTER RECOVERY COORDINATOR [address] [place] [address] PCP - General Family Medicine 08/25/23 documented as of this encounter
--- OUTSIDE RECORDS SUMMARY | 2024-08-07 12:06 | XMS_ITS | Encounter Summary ---
Author Organization [employer] Sys tem Address [facility]-[id number] [address] [place] [address] Care Team Providers Care Estate And Trust Tax Principal Name Role Phone Josette Mendoza HEAD STRENGTH AND CONDITIONING COACH-HORSE SHOER Primary Care Provider Encounter Details Date Type Department Care Team (Late st Contact Info) Description 11/29/2023 Orders Only [facility] [address] [facility] [place] [address] Triny Blanco CMA Social History Tobacco Use Types Packs/Day Years [...] Never 05/31/2020 How often do you attend denominational or orthodoxy serv ices? Never 05/31/2020 Do you belong to any clubs o r organizations such as denominational groups, unions, fraternal or athletic groups, or [...] Answer Date Recorded Total Score 10 07/03/2023 [facility] of Occupat ional Health - Occupational [...] things needed for daily living? No 05/31/2020 [place] Depression Scale Answer Date Recorded [place] Depression Scale Total 11 05/19/2019 The thought of harming myself has occurred to me . Never 05/19/2019 Childcare Answer Date Recorded Do problems getting child ca re make it difficult for you to work or study? No 05/31/2020 Employment Answer Date Recorded Do you need help finding a [facility] career center and/or a training program? No 05/31/2020 Hunger Screening Answer Date Recorded Within the past 12 months we worried whether our food would run out before we got money to buy more. Never True 11/30/2023 Within the past 12 months th e food we bought just didn't last and we didn't have money to get more. Never True 11/30/2023 Purpose - Life Answer Date Recorded I [...] documented as of this encounter Visit Diagnoses Not on filedocumented in this encounter Additional Health Concerns Assessment Noted Time PHQ-9 Depression Total Score: 10 024 10:55 AM EDT A Body Mass Index follow-up plan has been documented for the patient 07/03/2023 2:02 PM EDT documented as of this encounter Care Teams Estate And Trust Tax Principal Relationship Specialty Start Date End Date Josette Mendoza, STEVE-HORSE SHOER [address] [place] [address] PCP - General Family Medicine 08/25/23 documented as of this encounter
--- OUTSIDE RECORDS SUMMARY | 2024-08-07 12:06 | XMS_ITS | Encounter Summary ---
Author Organization [employer] Sys tem Address [facility] [id number] [address] [place] [address] Care Team Providers Care Machine Straw Hat Presser Name Role Phone Josette Mendoza ADVENTURE GUIDE-ACCOUNTING SUPPORT SPECIALIST Primary Care Provider Reason for Visit * Reason Onset Date Comments Med Refill 07/01/2019 Encounter Details Date Type Department Care Team (Late st Contact Info) Description 07/01/2019 Refill [facility] [address] [place] [address] Radha Nguyen, Hypertension affecting in first trimester Social History Tobacco Use Types Packs/Day Years Used Date Smoking Tobacco: Every Day Cigarettes 1 22.5 Started: 1996; Last attempted to quit: 09/11/2018 Smokeless Tobacco: Never Comments:using nicorette Alcohol Use Standard Drinks/Week Comments Not Currently 0 (1 standard drink = 0.6 oz pur e alcohol) pre preg 1-2 x month [place] Depression Scale Answer Date Recorded [place] Depression Scale Total 11 05/19/2019 The thought of harming myself has occurred to me . Never 05/19/2019 Childcare Answer Date Recorded Childcare Unknown 08/15/2018 Employment Answer Date Recorded Employment Unknown 08/15/2018 Comments No Sex and Gender Information Value Date Recorded Sex Assigned at Not on file Legal Sex Female 12:03 PM EDT Gender Identity Not on file Sexual Orientation Not on file COVID-19 Exposure Response Date Recorded In the last month, have you been in contact with someone who was confirmed or suspected to have Coronavirus / COVID-19? No / Unsure 07/04/2019 9:57 AM EDT documented as of this encounter Miscellaneous Notes * Telephone Encounter - Radha Nguyen CPT - 07/01/2019 11:51 AM EDT Laura called stating she is out of her labetalol and needs a refill to go to [facility] in [place]. I told her we would call with any issues. * Telephone Encounter - SAMIRA Frances - 07/01/2019 11:51 AM EDT Patient sees Dr. Fenton for blood pressure management / post op care. * Telephone Encounter - Radha Nguyen CPT - 07/01/2019 11:51 AM EDT Ok will route this to dr fenton documented in this encounter Plan of Treatment Not on file documented as of this encounter Visit Diagnoses Diagnosis Hypertension affecting in first trimester documented in this encounter Additional Health Concerns Infection Onset Date Last Indicated Resolved Time COVID-19 Rule-Out 06/22/2020 06/22/2020 06/22/2020 10:27 PM EDT documented as of this encounter Care Teams Machine Straw Hat Presser Relationship Specialty Start Date End Date Josette Mendoza APRN-CNP [address] [place] [address] PCP - General Family Medicine 08/25/23 documented as of this encounter
--- OUTSIDE RECORDS SUMMARY | 2024-08-07 12:06 | XMS_ITS | Encounter Summary ---
Author Organization [employer] Sys [employer] Address [facility]-[id number] [address] [place] [address] Care Team Providers Care Electrician Substation Name Role Phone Josette Mendoza JOINT CUTTER-PUBLIC INFORMATION OFFICER Primary Care Provider Encounter Details Date Type Department Care Team (Late st Contact Info) Description 05/23/2023 Telephone [facility] [address] [place] [address] Francy Dewitt, VITA Social History Tobacco Use Types Packs/Day Years [...] Never 05/31/2020 How often do you attend restoration or presybeterian serv ices? Never 05/31/2020 Do you belong to any clubs o r organizations such as restoration groups, unions, fraternal or athletic groups, or [...] Answer Date Recorded Total Score 0 05/31/2020 [facility] of Occupat ional Health - Occupational Stress [...] things needed for daily living? No 05/31/2020 [place] Depression Scale Answer Date Recorded [place] Depression Scale Total 11 05/19/2019 The thought of harming myself has occurred to me . Never 05/19/2019 Childcare Answer Date Recorded Do problems getting child ca re make it difficult for you to work or study? No 05/31/2020 Employment Answer Date Recorded Do you need help finding a [facility] career [facility] and/or a training program? [...] on file documented as of this encounter Miscellaneous Notes * Telephone Encounter - Francy Dewitt RN - 05/23/2023 9:18 AM EDT Patient calling to see if her monitored walking test with leg cuffs is scheduled? She Saw Dr Webster last week in [place] and he told her that she would be scheduled for this At [place] but she has not heard from anyone about when it is scheduled. Please call her about this. She also mentioned that she may want to follow up in [place] if possible. * Telephone Encounter - Ana Luisa Brown CMA - 05/23/2023 9:18 AM EDT Has this been taken care of? * Telephone Encounter - Elkin Dejesus CMA - 05/23/2023 9:18 AM EDT No, this is my first seeing it as it was sent directly to you. documented in this encounter Plan of Treatment Not on file documented as of this encounter Visit Diagnoses Not on filedocumented in this encounter Additional Health Concerns Assessment Noted Time PHQ-9 Depression Total Score: 0 06/01/19 21 10:58 PM EDT A Body Mass Index follow-up plan has been documented for the patient 06/22/2022 11:05 AM EDT documented as of this encounter Care Teams Electrician Substation Relationship Specialty Start Date End Date Josette Mendoza, JOINT CUTTER-PUBLIC INFORMATION OFFICER [address] [facility] [place] [address] PCP - General Family Medicine 08/25/23 documented as of this encounter
--- OUTSIDE RECORDS SUMMARY | 2024-08-07 12:07 | XMS_ITS | Encounter Summary ---
Author Organization [employer] Address [facility]-[id number] [address] [place] [address] Care Team Providers Care Rand Maker Name Role Phone Josette Mendoza APRN-OCCUPATIONAL MEDICINE PHYSICIAN Primary Care Provider Reason for Visit * Reason Comments Med Refill Encounter Details Date Type Department Care Team (Late st Contact Info) Description 10/29/2019 Refill [facility] [address] [place] [address] Boni Ogden MD [address] [place], [place] [id number] Social History Tobacco Use Types Packs/Day Years Used Date Smoking Tobacco: Every Day Cigarettes 0.5 22.5 Started: 1996; Last attempted to quit: 09/11/2018 Smokeless Tobacco: Never Comments:using nicorette Alcohol Use Standard Drinks/Week Comments Yes 0 (1 standard drink = 0.6 oz pur e alcohol) occassionally [place] Depression Scale Answer Date Recorded [place] Depression Scale Total 11 05/19/2019 The thought [...] filedocumented in this encounter Additional Health Concerns Infection Onset Date Last Indicated Resolved Time COVID-19 Rule-Out 06/22/2020 06/22/2020 06/22/2020 10:27 PM EDT documented as of this encounter Care Teams Rand Maker Relationship Specialty Start Date End Date Josette Mendoza, STEVE-OCCUPATIONAL MEDICINE PHYSICIAN [address] [place] [address] PCP - General Family Medicine 08/25/23 documented as of this encounter
--- OUTSIDE RECORDS SUMMARY | 2024-08-07 12:07 | XMS_ITS | Encounter Summary ---
Author Organization [facility] Address [address] [place] [address] Care Team Providers Care Urban Anthropologist Name Role Phone Josette Mendoza CNP Primary Care Provider [phone] Encounter Details Date Type Department Care Team (Late st Contact Info) Description 08/06/2024 Orders Only [facility] [address] [place] [address] Norma Watson MA SVT (supraventricular tachycardia) Social History Tobacco Use Types Packs/Day Years Used Date Smoking Tobacco: Every Day Cigarettes Smokeless Tobacco: Never Alcohol Use Standard Drinks/Week Comments Not Currently 0 (1 standard drink = 0.6 oz pur e alcohol) former [facility] Utilities Answer Date Recorded In the past 12 months has th e electric, gas, oil, or water company threatened to shut off services in your [...] any time in the past 12 m [facility], were you homeless or living in a longterm (including now)? No 05/24/2024 Hunger Vital Sign [...] as of this encounter Plan of Treatment Scheduled Procedures Name Priority Associated Diagnoses Date/Ti me EP STUDY SVT (supraventricular tachycardia) ABLATION SVT ATRIAL TACHYCARDIA SVT (supraventricular tachycardia) documented as of this encounter Visit Diagnoses Diagnosis SVT (supraventricular tachycardia) Other specified cardiac dysrhythmias documented in this encounter Care Teams Urban Anthropologist Relationship Specialty Start Date End Date Josette Mendoza CNP [facility], [place] [address] PCP - General Family Medicine 06/28/23 documented as of this encounter
--- OUTSIDE RECORDS SUMMARY | 2024-08-07 12:07 | XMS_ITS | Patient Health Record ---
Author Organization [facility] Address [address] [place], [place] [id number] Care Team Providers Care Marine Oiler Name Role Phone Maria Fernanda Pa Unavailable [phone] Reason For Referral No Information Plan Of Treatment No Information Insurance Providers Payer Name Payer Address Payer Phone Subscriber Number Group Number Insured Name Patient Relationship to Insured Coverage Start Date Coverage End Date zzDAnthem [employer] [facility] [address] [place] [address] [id number] Laura Arias Self - patient is the insured 4 DMedicaid [employer] [place] [address] [place], [place] [id number] Laura Arias Self - patient is the insured 4
--- OUTSIDE RECORDS SUMMARY | 2024-08-07 12:07 | XMS_ITS | Clinical Summary ---
Author Organization [facility] Address [address] [place] [address] Care Team Providers Care Administrative Assistant Front Desk Name Role Phone Josette Mendoza CNP Primary Care Provider [phone] Allergies Active Allergy Reactions Criticality Noted Date Comments Ciprofibrate Swelling High 10/12/2018 Ciprofloxacin Other High 11/01/2012 Facial edema - per pt Metronidazole Other High 10/12/2018 Flu like s/s Facial edema - per pt Penicillins Other High 10/12/2018 Facial edema - per pt Medications Medication Sig Dispensed Refills Start Date End Date Status aspirin 81 mg EC tablet 1 tablet Orally Once a day 05/18/2023 Active atorvastatin (Lipitor) 40 mg tablet Take 40 mg by mouth in the morning. 06/26/2023 Active cholecalciferol (Vitamin D-3) 50 MCG (1999) tablet Take by mouth in the morning. 06/06/2023 Active clopidogrel (Plavix) 75 mg tablet Take 75 mg by mouth in the morning. 05/18/2023 Active gabapentin (Neurontin) 600 mg tablet Take 600 mg by mouth in the morning, afternoon, and at bedtime. 01/05/2023 Active OLANZapine (ZyPREXA) 5 mg tablet take 1 tablet by mouth three times a day if needed for AGITATION 06/23/2023 Active olmesartan-hydrochl orothiazide (BENIcar HCT) 20-12.5 mg tablet Take 1 tablet by mouth if needed. 04/24/2023 Active omeprazole (PriLOSEC) [address] capsule Take 40 mg by mouth in the morning and at bedtime. Active buPROPion XL (Wellbutrin XL) 300 mg 24 hr tablet Take 300 mg by mouth in the morning. Active LORazepam (Ativan) 1 mg tablet Take 1 tablet by mouth every 8 (eight) hours if needed for anxiety. 02/21/2024 Active albuterol 90 mcg/actuation inhaler Inhale 2 puffs every 6 (six) hours if needed for wheezing. Active levomilnacipran (Fetzima) 20 mg extended release capsule Take 40 mg by mouth in the morning. Active hydrOXYzine pamoate (Vistaril) 25 mg capsule Take 25 mg by mouth. 03/18/2024 Active vilazodone (Viibryd) 10 mg tablet Take 10 mg by mouth with breakfast. 03/18/2024 Active vilazodone (Viibryd) 20 mg tablet Take 20 mg by mouth in the morning. with food 05/28/2024 Active metoprolol succinate XL (Toprol-XL) 50 mg 24 hr tabletIndications:P alpitations Take 1 tablet (50 mg) by mouth once daily as directed. Do not crush or chew. 90 tablet 3 06/11/2024 06/11/2025 Active ferrous sulfate 325 (65 Fe) MG tablet Take 325 mg by mouth with breakfast. 02/20/2024 Active Active Problems Problem Noted Date Diagnosed Date Palpitations 05/25/2024 NSTEMI (non-ST elevated myocardial infarction) 0 05/24/2024 Assessment & Plan (05/24/2024 8:07 AM EDT): -Patient is currently chest pain-free -Commence patient on IV heparinization -Aspirin -Obtain lipid panel -Consult cardiology -Has supplemental oxygen and nitrates ready to use if patient has chest discomfort. IAM (acute kidney injury) 05/24/2024 Assessment & Plan (05/24/2024 8:07 AM EDT): -Gentle hydration with normal saline at rate of 50 mL/h -Avoid nephrotoxic agents -Care must be taken to preserve renal function before, during and after catheterization -Need to consult with nephrology. Positive test 05/24/2024 Assessment & Plan (05/24/2024 8:07 AM EDT): -Patient has positive test however she states that she is not -Patient states that she has tubal ligation -Repeat quantitative beta-hCG DVT prophylaxis using VTE protocols per [facility] GI protection Protonix Monitor labs and correct any abnormalities especially monitor renal function Try to avoid nephrotoxic agents Consult include cardiology and nephrology I discussed the plan of care with the patient and she is in agreement with the plan of care. 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 06/28/2023 Common bile duct stone 06/28/2023 Cystadenoma of liver 06/28/2023 06/28/2023 On total parenteral nutrition (TPN) 06/28/2023 06/28/2023 Right upper quadrant abdominal pain 06/28/2023 06/28/[address] scan 05/18/2023 06/28/2023 Blue toe syndrome of left lower extremity 202306/28/2023 Claudication 05/18/2023 06/28/2023 Hx of abnormal cervical Pap smear 06/22/2022 06/28/2023 Overview (06/28/2023): ASCUS / + other high risk hpv 10/23/2018 Irritable bowel syndrome wit h both constipation and diarrhea 06/22/2022 06/28/2023 Liver cyst 07/30/2021 06/28/2023 Perihepatic fluid collection 04/25/2021 Acute pancreatitis after end oscopic retrograde cholangiopancreatography (ERCP) 04/23/2021 06/28/2023 History of biliary stent insertion 04/23/2021 06/28/2023 Gastroesophageal reflux disease without esophagi tis 04/04/2021 06/28/2023 Assessment & Plan (05/24/2024 8:07 AM EDT): -Pantoprazole orally Nausea & vomiting 04/04/2021 06/28/2023 Obesity 04/04/2021 06/28/2023 Assessment & Plan (05/24/2024 8:07 AM EDT): -Weight loss by virtue of diet and exercise Biliary dyskinesia 04/02/2021 06/28/2023 Assessment & Plan (05/24/2024 8:27 AM EDT): -Note that patient had abdominal pain after eating a compelled meal and Evan. -Must consider biliary dyskinesia and also acute pancreatitis being that patient has had acute pancreatitis in the past. Abnormal stress test 06/26/2020 06/28/2023 Overview (06/28/2023): Added automatically from request for surgery [id number] Assessment & Plan (05/24/2024 8:07 AM EDT): -Proceed to catheterization however care must be taken because of patient's renal function. -May need to consult with nephrology Abnormal EKG 06/15/2020 06/28/2023 Anxiety 11/20/2018 06/28/2023 Overview (06/28/2023): Stopped ativan Psychiatrist started her on trazadone . Helping Cigarette smoker motivated to quit 10/23/2018 06/28/2023 Overview (06/28/2023): quit History of depression 10/23/2018 06/28/2023 Hypertension 10/23/2018 06/28/2023 Overview (06/28/2023): MFM consult Growth Q 4 weeks Twice weekly NST and weekly JOSE MANUEL start at 32 weeks switch coreg to labetalol 200mg BID per consult Dr. Boo Assessment & Plan (05/24/2024 8:07 AM EDT): -Patient's blood pressure is completely controlled this morning it was 100/65 -Will hold all antihypertensive medications for the moment Mild intermittent asthma without complication 06/28/2023 Encounters Date Type Department Care Team Description 08/06/2024 9:00 AM EDT Office Visit [facility] [address] [place] [address] Cornell Peng MD WPW (Hovyt-Cihnpozoo-Wbin e syndrome) 08/06/2024 Orders Only [facility] Heart [facility] [address] [place] [address] Norma Watson MA SVT (supraventricular tachycardia) 06/11/2024 11:30 AM EDT Office Visit [facility] [address] [place] [address] Cornell Peng MD Palpitations 05/24/2024 3:34 PM EDT - 05/24/2024 4:34 PM EDT Surgery [facility] Vascular Lab [address] [place] [address] Silvestre Neumann MD Coronary angiography [[id number]] 05/24/2024 5:47 AM EDT - 05/25/2024 12:20 PM EDT Hospital Encounter [facility] [address] [place] [address] Ahsan Evans MD Mansur, Sarmed, MD Okoro, Bonaventure, MD Palpitations (Primary Dx); NSTEMI (non-ST elevated myocardial infarction) ([facility]/HCC); Abnormal stress test Discharge Disposition: Home or Self Care () 05/24/2024 Travel from Last 3 Months Family History Medical History Relation Name Comments Cancer Mother Hypertension Mother Stroke Mother Relation Name Status Comments Brother Alive Father Alive Mother Sister Alive Social History Tobacco Use Types Packs/Day Years Used Date Smoking Tobacco: Every Day Cigarettes Smokeless Tobacco: Never Tobacco Cessation:Ready to Q uit: Not Asked; Counseling Given: Not Answered Alcohol Use Standard Drinks/Week Comments Not Currently 0 (1 standard drink = 0.6 oz pur e alcohol) former [facility] Utilities Answer Date Recorded In the past 12 months has e [employer], gas, oil, or water [employer] threatened to shut off services in your [...] any time in the past 12 m [facility], were you homeless or living in a [...] Pulse 91 08/06/2024 8:54 AM EDT Temperature 36.4 C (97.5 F) 05/25/2024 8:07 AM EDT Respiratory Rate 17 05/25/2024 8:07 AM EDT Oxygen Saturation 97% 08/06/2024 8:54 AM EDT Inhaled Oxygen Concentration - - Weight 109 kg (240 lb) 08/06/2024 8:54 AM EDT Height 167.6 cm (5' 6 ) 08/06/2024 8:54 AM EDT Body Mass Index 38.74 08/06/2024 8:54 AM EDT Plan of Treatment Scheduled Procedures Name Priority Associated Diagnoses Date/Ti me EP STUDY SVT (supraventricular tachycardia) ABLATION SVT ATRIAL TACHYCARDIA SVT (supraventricular tachycardia) Health Maintenance Due Date Last Done Comments CT Colonography 1978 Colonoscopy 1978 Colorectal Cancer Screening 1978 FIT-DNA 1978 FIT 1978 FOBT 1978 Sigmoidoscopy 1978 Pneumococcal Vaccine: Pediat rics (0 to 5 Years) and At-Risk Patients (6 to 64 Years) (1 of 2 - PCV) 01/29/1984 Depression Screening 1990 Hepatitis B Vaccines (1 of 3 - 19+ 3-dose series) 1997 Pap Smear 1999 Cervical Cancer Screening 01/29/2008 HPV/Cotest 01/29/2008 COVID-19 Vaccine (2023-2 5 season) 2023 Mammogram 06/24/2024 06/24/2022 Influenza Vaccine (Season Ended) 2024 01/30/20 19 Zoster Vaccines (1 of 2) 01/29/2028 Adult Tetanus 03/22/2029 03/22/2019 HIB Vaccines Aged Out No longer eligi ble based on patient's age to complete this topic HPV Vaccines Aged Out No longer eligi ble based on patient's age to complete this topic IPV Vaccines Aged Out No longer eligi ble based on patient's age to complete this topic Meningococcal B Vaccine Aged Out No l onger eligible based on patient's age to complete this topic Meningococcal Vaccine Aged Out No michelle rossi eligible based on patient's age to complete this topic Rotavirus Vaccines Aged Out No longer eligible based on patient's age to complete this topic Procedures Procedure Name Priority Date/Time Associated Diagnosis Comments CARDIAC EVENT MONITOR Routine 05/25/2024 12:36 PM EDT Palpitations CBC Pending Discharge 05/25/2024 4:17 AM EDT BASIC METABOLIC PANEL Pending Discharge 05/25/2024 4:17 AM EDT CORONARY ANGIOGRAPHY Routine 05/24/2024 4:13 PM EDT Abnormal stress test ANTI-FACTOR XA Timed 05/24/2024 3:07 PM EDT URINALYSIS MICROSCOPIC Routine 05/24/2024 1:36 PM EDT URINALYSIS Routine 05/24/2024 1:36 PM EDT COMPLETE ECHO (TTE) W/ IMAGING AGENT Routine 05/24/2024 11:30 AM EDT MANUAL DIFFERENTIAL STAT 05/24/2024 8 :25 AM EDT LIPASE Add-On 05/24/2024 8:25 AM EDT CBC WITH AUTO DIFFERENTIAL STAT 05/24/2024 8:25 AM EDT APTT STAT 05/24/2024 8:25 AM EDT HIGH SENSITIVITY TROPONIN I Routine 05/24/2024 8:25 AM EDT MAGNESIUM STAT 05/24/2024 8:25 AM EDT SERUM QUALITATIVE Routine 05/24/2024 8:25 AM EDT CBC AND DIFFERENTIAL Routine 05/24/2024 8:25 AM EDT COMPREHENSIVE METABOLIC PANEL Routine 05/24/2024 8:25 AM EDT from Last 3 Months Results * CARDIAC EVENT MONITOR (05/25/2024 12:36 PM EDT) Anatomical Region Laterality Modality Electrocardiogra phy 05/25/2024 11:1 4 AM EDT Narrative 06/25/2024 3:14 PM EDT [facility] Heart Station [address] [place] [address] [phone] (fax) Event [facility]order-[facility] Name: SHAHLA ARIAS Study Date: 05/25/2024 11:14 AM Date of : 1980 Location: [facility] Height: Age: 44 year(s) Patient Room: Weight: Gender: Female Patient Status: OutPt BSA: Indication: Palpitations Examination: Event Recorder Conclusions -Most frequent symptomatic event: Shortness of Breath during Sinus (1 event). -Sinus rhythm: a prevalence of 100.00%, avg. rate of 89 BPM, slowest rate of 57 BPM at 03:27 d2 and fastest rate of 127 BPM. -The slowest N-N interval within Bradycardia: rate of 48 BPM (1.3s). -Ventricular ectopic acivity: 1 run. The fastest episode of Ventricular Tachycardia: 8 beats with avg. rate of 154 BPM and the longest episode: 8 beats at (3s) with avg. rate of 154 BPM. -Supraventricular ectopic activity: 10 runs. The fastest episode of Supraventricular Tachycardia: 20 beats with avg. rate of 191 BPM and the longest episode: 20 beats with avg. rate of 191 BPM. Symptoms: Short of breath Rhythm: Normal Sinus Rhythm, Sinus Bradycardia , Sinus Tachycardia, Supraventricular Tachycardia, Ventricular Tachycardia Start of Examination: 05/25/2024 Recording Duration: 30 days Findings: The primary rhythm is sinus with an average heart rate of 89 bpm. During one symptomatic event, the strip showed sinus tachycardia with a heart rate of 117 bpm. Holter / Ambulatory ECG Average HR 89 bpm Time of Max. HR 07:44 day 3 Time of Min. HR 03:24 day 2 Max. HR 127 bpm Min. HR 48 bpm VE / SVE VE Runs 1 Beats Longest VE Run 8 Rate Longest VE Run 154 bpm Time Longest VE Run 22:10 day 23 SVE Runs 10 Beats Longest SVE Run 20 Rate Longest SVE Run 191 bpm Time Longest SVE Run 12:09 day 15 Procedure Staff Reading Group: [facility] Ordering Physician: BASHIR MORE Air Drill Operator: Leonor Worley Procedure Note Kellee Guillaume MD - 06/25/2024 1 [facility] Heart Station [address] [place] [address] (fax) Event [facility] Name: SHAHLA ARIAS Study Date: 05/25/2024 11:14 AM Date of : 1980 Location: [facility] Height: Age: 44 year(s) Patient Room: Weight: Gender: Female Patient Status: OutPt BSA: Indication: Palpitations Examination: Event Recorder Conclusions -Most frequent symptomatic event: Shortness of Breath during Sinus (1 event). -Sinus rhythm: a prevalence of 100.00%, avg. rate of 89 BPM, slowest rate of 57 BPM at 03:27 d2 and fastest rate of 127 BPM. -The slowest N-N interval within Bradycardia: rate of 48 BPM (1.3s). -Ventricular ectopic acivity: 1 run. The fastest episode of Ventricular Tachycardia: 8 beats with avg. rate of 154 BPM and the longest episode: 8 beats at (3s) with avg. rate of 154 BPM. -Supraventricular ectopic activity: 10 runs. The fastest episode of Supraventricular Tachycardia: 20 beats with avg. rate of 191 BPM and the longest episode: 20 beats with avg. rate of 191 BPM. Symptoms: Short of breath Rhythm: Normal Sinus Rhythm, Sinus Bradycardia , Sinus Tachycardia, Supraventricular Tachycardia, Ventricular Tachycardia Start of Examination: 05/25/2024 Recording Duration: 30 days Findings: The primary rhythm is sinus with an average heart rate of 89 bpm. During one symptomatic event, the strip showed sinus tachycardia with a heart rate of 117 bpm. Holter / Ambulatory ECG Average HR 89 bpm Time of Max. HR 07:44 day 3 Time of Min. HR 03:24 day 2 Max. HR 127 bpm Min. HR 48 bpm VE / SVE VE Runs 1 Beats Longest VE Run 8 Rate Longest VE Run 154 bpm Time Longest VE Run 22:10 day 23 SVE Runs 10 Beats Longest SVE Run 20 Rate Longest SVE Run 191 bpm Time Longest SVE Run 12:09 day 15 Procedure Staff Reading Group: [facility] Ordering Physician: BASHIR MORE Air Drill Operator: Leonor [place] Bashir More MD CV CARDIAC SERVICES PROCEDURES * (ABNORMAL) CBC (05/25/2024 4:17 AM EDT) Auto WBC 5.23 4.00 - 10.60 10*3/uL 05/25/2024 4:40 AM EDT [facility] ([facility]) RBC 3.36(L) 3.80 - 5.00 10*6/uL 05/25/2024 4:40 AM EDT [facility] ([facility]) Hemoglobin 9.7(L) 12.0 - 15.0 g/dL 05/25/2024 4:40 AM EDT [facility] ([facility]) Hematocrit 30.7(L) 36.0 - 45.0 % 05/25/2024 4:40 AM EDT [facility] ([facility]) MCV 91.4 82.0 - 98.0 fL 05/25/2024 4:40 AM EDT [facility] ([facility]) MCH 28.9 27.0 - 33.0 pg 05/25/2024 4:40 AM EDT [facility] ([facility]) MCHC 31.6(L) 32.0 - 35.0 g/dL 05/25/2024 4:40 AM EDT [facility] ([facility]) RDW 14.6 11.5 - 15.0 % 05/25/2024 4:40 AM EDT [facility] ([facility]) Platelets 189 150 - 400 10*3/uL 05/25/2024 4:40 AM EDT [facility] ([facility]) Blood Venous blood specimen / Unknown Arterial Line / Unknown 05/25/2024 4:17 AM EDT 05/25/2024 4:33 AM EDT Silvestre Neumann MD LAB BLOOD ORDERABLES [facility] ([facility]) [address] [place] [address] * (ABNORMAL) Basic metabolic panel (05/25/2024 4:17 AM EDT) Sodium 138 136 - 145 mmol/L 05/25/2024 4:56 AM EDT [facility] ([facility]) Potassium 4.9 3.5 - 5.1 mmol/L 05/25/2024 4:56 AM EDT [facility] ([facility]) Chloride 108(H) 98 - 107 mmol/L 05/25/2024 4:56 AM EDT [facility] ([facility]) CO2 25 21 - 31 mmol/L 05/25/2024 4:56 AM EDT [facility] ([facility]) BUN 11 7 - 25 mg/dL 05/25/2024 4:56 AM EDT [facility] ([facility]) Creatinine 1.04 0.60 - 1.20 mg/dL 05/25/2024 4:56 AM EDT [facility] ([facility]) Glucose 100 70 - 100 mg/dL 05/25/2024 4:56 AM T [facility] ([facility]) Calcium 8.7 8.6 - 10.3 mg/dL 05/25/2024 4:56 AM T [facility] ([facility]) Anion Gap 10 7 - 20 mmol/L 05/25/2024 4:56 AM T [facility] ([facility]) eGFR 67.1 >60.0 mL/min/1. 73m*2 05/25/2024 4:56 AM T [facility] ([facility]) Comment:The [facility] s estimated glomerular filtration rate (eGFR) will no longer include consideration of race in its calculation. The [employer] s eGFR Task Force developed new recommendations for the estimation of the glomerular filtration rate in the [place] They recommend immediate implementation of the new equation refit without the race variable in all laboratories because the calculation does not include race. In addition to not including race in the calculation and reporting, it included diversity in its development, and has acceptable performance characteristics and potential consequences that do not disproportionately affect any one group of individuals. BUN/Creatinine Ratio 10.6 05/05 4:56 AM T [facility] ([facility]) Blood Venous blood specimen / Unknown Arterial Line / Unknown 05/25/2024 4:17 AM EDT 05/25/2024 4:33 AM EDT Silvestre Neumann MD LAB BLOOD ORDERABLES [facility]) [address] [place] [address] * CORONARY ANGIOGRAPHY (05/24/2024 4:13 PM EDT) Anatomical Region Laterality Modality Other Narrative 05/24/2024 4:41 PM EDT PROCEDURE PHYSICIAN: Silvestre Neumann MD Clinical Presentation: 44 y.o. Female with history of hypertension, +smoker, peripheral artery disease, preexcitation on EKG who presented to [facility] as a transfer from [facility] where she initially presented complaining of abdominal pain, nausea and vomiting. Initial workup in [facility] showed elevated high-sensitivity troponin of 140 which trended downward during hospital admission to 84. She also reports recent symptoms of chest pain and shortness of breath and palpitations. She is referred for coronary angiogram. Final Impression: 1) Coronary angiogram reveals diffuse mild CAD, appropriate for optimal medical therapy. Plan: 1) optimal med therapy for CAD and HTN 2) Aspirin and high intensity statin therapy and beta katie for CAD 3) smoking cessation is needed. Start chantix or other smoking cessation aid in the outpatient setting 4) weight loss is needed given BMI 40; monitor for diabetes and encourage weight loss 5) outpatient follow up with primary care 6) Medical management and follow-up for anemia and iron deficiency Procedures Performed: coronary angiogram, conscious sedation 19 min Procedure Description: The patient was brought to the cardiac catheterization lab in a fasting state. Informed written consent was obtained. she was prepped and draped in usual sterile fashion over the bilateral groins. Time-out was performed. she was given Versed and fentanyl for sedation. 1% lidocaine was infiltrated over the right femoral artery. A 6-Kittitian sheath was placed in right femoral artery. Limited femoral angiogram was performed and this showed that the sheath is in the right common femoral artery. Coronary angiogram was performed with a JL4 to engage the left main and a JR4 to engage the RCA. Coronary angiogram was performed in multiple orthogonal views. All catheters and wires were removed. The right femoral sheath was removed and an Angioseal closure device was applied to obtain hemostasis. Specimens Removed: None Complications: None Coronary Angiogram: Left main: Patent LAD: the [...] right SHERRY and PDA are both patent. Study Details Chest pain, SOB, +smoker, abnormal stress test Bashir More MD CV CARDIAC CATH PROC EDURES * Anti-Xa (Heparin Level) (05/24/2024 3:07 PM EDT) Anti-Xa (Heparin) 0.49 0.3 - 0.7 IU/mL 05/24/2024 3:46 PM EDT [facility] ([facility]) Comment:Rivaroxaban and Apix aban will interfere with the anti Xa assay used to monitor UFH and LMWH. Blood Venous blood specimen / Unknown Arterial Line / Unknown 05/24/2024 3:07 PM EDT 05/24/2024 3:25 PM EDT Silvestre Neumann MD LAB BLOOD ORDERABLES [facility] ([facility]) [address] [place] [address] * (ABNORMAL) Urinalysis microscopic (05/24/2024 1:36 PM EDT) RBC, Urine 0-2 None Seen, 0-2 /HPF 05/24/2024 1:52 PM EDT [facility] ([facility]) WBC, Urine 3-5(A) None Seen, 0-2 /HPF 05/24/2024 1:52 PM EDT [facility] ([facility]) Squamous Epithelial, Urine Many(A) None Seen, Occasional , Few /LPF 05/24/2024 1:52 PM EDT [facility] ([facility]) Urine Urine specimen obtained by clean catch procedure / Unknown Non-blood Collection / Unknown 05/24/2024 1:36 PM EDT 05/24/2024 1:39 PM EDT Florence Dawson MD LAB URINE ORDERABLE S [facility] ([facility]) [address] [place] [address] * (ABNORMAL) Urinalysis (05/24/2024 1:36 PM EDT) Color, Urine Light-Yellow Colorless, Yellow, Light-Yellow 05/24/2024 1:52 PM EDT [facility] ([facility]) Clarity, Urine Clear Clear 05/24/2024 1:52 PM EDT [facility] ([facility]) pH, Urine 7.0 5.0 - 8.0 pH 05/24/2024 1:52 PM EDT [facility] ([facility]) Leukocytes, Urine Moderate(A) Negative 05/24/2024 1:52 PM EDT [facility] ([facility]) Nitrite, Urine Negative Negative 05/24/2024 1:52 PM EDT [facility] ([facility]) Protein, Urine Negative Negative mg/dL 05/24/2024 1:52 PM EDT [facility] ([facility]) Glucose, Urine Normal Normal mg/dL 05/24/2024 1:52 PM EDT [facility] ([facility]) Bilirubin, Urine Negative Negative 05/24/2024 1:52 PM EDT [facility] ([facility]) Specific Shorter, Urine 1.013 1.010 - 1.030 05/24/2024 1:52 PM EDT [facility] ([facility]) Ketones, Urine Negative Negative mg/dL 05/24/2024 1:52 PM EDT [facility] ([facility]) Blood, Urine Negative Negative 05/24/2024 1:52 PM EDT [facility] ([facility]) Urobilinogen, Urine Normal Normal mg/dL 05/24/2024 1:52 PM EDT [facility] ([facility]) Urine Urine specimen obtained by clean catch procedure / Unknown Non-blood Collection / Unknown 05/24/2024 1:36 PM EDT 05/24/2024 1:39 PM EDT Florence Dawson MD LAB URINE ORDERABLE S [facility] [address] [place] [address] * COMPLETE ECHO (TTE) W/ IMAGING AGENT (05/24/2024 11:30 AM EDT) Anatomical Region Laterality Modality Other 05/24/2024 11:1 8 AM EDT Narrative 05/24/2024 11:59 AM EDT 1 1 [facility] Heart Station [address] [place] [address] [phone] (fax) Echocardiogram-[facility] Name: SHAHLA ARIAS Study Date: 05/24/2024 11:18 AM B/P: 100 mmHg/64 mmHg HR: Date of : 1980 Location: [facility] Height: 66 in. Age: 44 year(s) Patient Room: 3123 Weight: 244 lb. Gender: Female Patient Status: InPt BSA: 2.18 m2 Indication: Chest Pain, Elevated troponin Examination: Echocardiogram (Complete), Lumason Contrast Image Quality: Apical views only Patient Consent: Procedure explained to patient Conclusions Left Ventricle: The left ventricle appears normal in size. Global left ventricular systolic function is hyperdynamic. The EF is 70 % visually. Left ventricular wall thickness is normal. No regional wall motion abnormality. Right Ventricle: The right ventricle appears normal in size. Right ventricular systolic function appears normal. Unable to assess right sided pressures due to lack of measurable tricuspid regurgitation. Left Atrium: The left atrium is normal in size. Overall Conclusions: Due to suboptimal imaging Lumason contrast was administered for opacification and better delineation of endocardial borders. Measurements Left Ventricle Label Value Normal Value LVOT VTI 23.8 cm (18cm - 22cm) LVOT PGmax 9 mmHg LVEF visual 70 % LVOT PGmean 4 mmHg Left Atrium Label Value Normal Value LA Volume, BP 60 ml (22ml - 52ml) LAESV index, BP 27.5 ml/m?? Aortic Valve Label Value Normal Value AV DVI 1.01 AV VTI 23.2 cm Mitral Valve Label Value Normal Value MV E Vmax 0.78 m/s MV A Vmax 0.81 m/s MV E/A 0.96 MV E/E' lateral 9.4 MV E' lateral 0.08 m/s Valvular Assessment LVOT 0.7 - 1.1 m/sec Aortic Valve 1.0 - 1.7 m/sec Mitral Valve 0.6 - 1.3 m/sec Tricuspid Valve 0.3 - 0.7 m/sec Pulmonic Valve 0.6 - 0.9 m/sec Regurgitation No No No Max Velocity 1.46 m/sec 1.44 m/s 0.78 m/sec Max Gradient 8.00 mmHg Mean Gradient 5.00 mmHg Findings Left Ventricle: The left ventricle appears normal in size. Global left ventricular systolic function is hyperdynamic. The EF is 70 % visually. Left ventricular wall thickness is normal. No regional wall motion abnormality. Right Ventricle: The right ventricle appears normal in size. Right ventricular systolic function appears normal. Unable to assess right sided pressures due to lack of measurable tricuspid regurgitation. Left Atrium: The left atrium is normal in size. Right Atrium: The right atrium appears normal in size. Mitral Valve: The mitral valve is normal in mobility and thickness. No mitral regurgitation. Aortic Valve: Aortic valve is poorly visualized. No aortic valve regurgitation. Tricuspid Valve: Normal tricuspid valve. No tricuspid regurgitation. Pulmonic Valve: Pulmonic valve is poorly visualized. Aorta: The aortic root is not well visualized. Great Vessels: IVC: The inferior vena cava is poorly visualized. Pericardium: No pericardial effusion. Procedure Staff Reading Group: [facility] Senior Asic Engineer: Elyssa Webber RDCS Ordering Physician: BASHIR MORE Procedure Note Kellee Guillaume MD - 05/24/2024 1 1 [facility] Heart Station [address] [place] [address] [phone] (fax) Echocardiogram-[facility] Name: SHAHLA ARIAS Study Date: 05/24/2024 11:18 AM B/P: 100 mmHg/64 mmHg HR: Date of : 1980 Location: [facility] Height: 66 in. Age: 44 year(s) Patient Room: 3123 Weight: 244 lb. Gender: Female Patient Status: InPt BSA: 2.18 m2 Indication: Chest Pain, Elevated troponin Examination: Echocardiogram (Complete), Lumason Contrast Image Quality: Apical views only Patient Consent: Procedure explained to patient Conclusions Left Ventricle: The left ventricle appears normal in size. Global left ventricular systolic function is hyperdynamic. The EF is 70 % visually. Left ventricular wall thickness is normal. No regional wall motion abnormality. Right Ventricle: The right ventricle appears normal in size. Right ventricular systolic function appears normal. Unable to assess right sided pressures due to lack of measurable tricuspid regurgitation. Left Atrium: The left atrium is normal in size. Overall Conclusions: Due to suboptimal imaging Lumason contrast was administered for opacification and better delineation of endocardial borders. Measurements Left Ventricle Label Value Normal Value LVOT VTI 23.8 cm (18cm - 22cm) LVOT PGmax 9 mmHg LVEF visual 70 % LVOT PGmean 4 mmHg Left Atrium Label Value Normal Value LA Volume, BP 60 ml (22ml - 52ml) LAESV index, BP 27.5 ml/m?? Aortic Valve Label Value Normal Value AV DVI 1.01 AV VTI 23.2 cm Mitral Valve Label Value Normal Value MV E Vmax 0.78 m/s MV A Vmax 0.81 m/s MV E/A 0.96 MV E/E' lateral 9.4 MV E' lateral 0.08 m/s Valvular Assessment LVOT 0.7 - 1.1 m/sec Aortic Valve 1.0 - 1.7 m/sec Mitral Valve 0.6 - 1.3 m/sec Tricuspid Valve 0.3 - 0.7 m/sec Pulmonic Valve 0.6 - 0.9 m/sec Regurgitation No No No Max Velocity 1.46 m/sec 1.44 m/s 0.78 m/sec Max Gradient 8.00 mmHg Mean Gradient 5.00 mmHg Findings Left Ventricle: The left ventricle appears normal in size. Global left ventricular systolic function is hyperdynamic. The EF is 70 % visually. Left ventricular wall thickness is normal. No regional wall motion abnormality. Right Ventricle: The right ventricle appears normal in size. Right ventricular systolic function appears normal. Unable to assess right sided pressures due to lack of measurable tricuspid regurgitation. Left Atrium: The left atrium is normal in size. Right Atrium: The right atrium appears normal in size. Mitral Valve: The mitral valve is normal in mobility and thickness. No mitral regurgitation. Aortic Valve: Aortic valve is poorly visualized. No aortic valve regurgitation. Tricuspid Valve: Normal tricuspid valve. No tricuspid regurgitation. Pulmonic Valve: Pulmonic valve is poorly visualized. Aorta: The aortic root is not well visualized. Great Vessels: IVC: The inferior vena cava is poorly visualized. Pericardium: No pericardial effusion. Procedure Staff Reading Group: [facility] Senior Asic Engineer: Elyssa Webber RDCS Ordering Physician: BASHIR MORE Bashir More MD CV ECHO PROCEDURES * (ABNORMAL) High Sensitivity Troponin I (05/24/2024 8:25 AM EDT) [facility] High Sensitivity Troponin I 52(HH) <15 ng/L 05/24/2024 9:09 AM EDT [facility] ([facility]) Blood Venous blood specimen / Unknown Arterial Line / Unknown 05/24/2024 8:25 AM EDT 05/24/2024 8:32 AM EDT Florence Dawson MD LAB BLOOD ORDERABLE S [facility] ([facility]) [address] [place] [address] * (ABNORMAL) CBC auto differential (05/24/2024 8:25 AM EDT) [facility] Auto WBC 5.00 4.00 - 10.60 10*3/uL 05/24/2024 9:22 AM EDT [facility] ([facility]) RBC 3.29(L) 3.80 - 5.00 10*6/uL 05/24/2024 9:22 AM EDT [facility] ([facility]) Hemoglobin 9.7(L) 12.0 - 15.0 g/dL 05/24/2024 9:22 AM EDT [facility] ([facility]) Hematocrit 30.5(L) 36.0 - 45.0 % 05/24/2024 9:22 AM EDT [facility] ([facility]) MCV 92.7 82.0 - 98.0 fL 05/24/2024 9:22 AM EDT [facility] ([facility]) MCH 29.5 27.0 - 33.0 pg 05/24/2024 9:22 AM EDT [facility] ([facility]) MCHC 31.8(L) 32.0 - 35.0 g/dL 05/24/2024 9:22 AM EDT [facility] ([facility]) RDW 14.7 11.5 - 15.0 % 05/24/2024 9:22 AM EDT [facility] ([facility]) Platelets 153 150 - 400 10*3/uL 05/24/2024 9:22 AM EDT [facility] ([facility]) Comment:Slide checked, no cl umps or clots seen nRBC % 0.0 0 % 05/24/2024 9:22 AM EDT [facility]) Immature Platelet Fraction % 1.3 0.8 - 6.3 % 05/24/2024 9:22 AM EDT [facility] ([facility]) Blood Venous blood specimen / Unknown Arterial Line / Unknown 05/24/2024 8:25 AM EDT 05/24/2024 8:32 AM EDT [facility] LAB BLOOD ORDERABLE S [facility]) [address] [place], [place] [id number] * (ABNORMAL) Manual Differential (05/24/2024 8:25 AM EDT) Immature Granulocytes % 0.4 0.0 - 1.0 % 05/24/2024 9:22 AM EDT [facility]) Neutrophils Absolute 3.3 1.6 - 7.6 10*3/uL 05/24/2024 9:22 AM EDT [facility] ([facility]) Lymphocytes Absolute 1.07(L) 1.20 - 4.00 10*3/uL 05/24/2024 9:22 AM EDT [facility] ([facility]) Monocytes Absolute 0.44 0.10 - 1.00 10*3/uL 05/24/2024 9:22 AM EDT [facility] ([facility]) Eosinophils Absolute 0.10 0.00 - 0.50 10*3/uL 05/24/2024 9:22 AM EDT [facility] ([facility]) Basophils Absolute 0.03 0.00 - 0.20 10*3/uL 05/24/2024 9:22 AM EDT [facility] ([facility]) Neutrophils % 66.8 40.0 - 72.0 % 05/24/2024 9:22 AM EDT [facility] ([facility]) Lymphocytes % 21.4 20.0 - 45.0 % 05/24/2024 9:22 AM EDT [facility] ([facility]) Monocytes % 8.8 5.0 - 12.0 % 05/24/2024 9:22 AM EDT [facility] ([facility]) Eosinophils % 2.0 0.0 - 6.0 % 05/24/2024 9:22 AM EDT [facility] ([facility]) Basophils % 0.6 0.0 - 1.0 % 05/24/2024 9:22 AM EDT [facility] ([facility]) Immature Granulocytes Absolute 0.02 0.00 - 0.20 10*3/uL 05/24/2024 9:22 AM EDT [facility] ([facility]) Blood Venous blood specimen / Unknown Arterial Line / Unknown 05/24/2024 8:25 AM EDT 05/24/2024 8:32 AM EDT Florence Dawson MD LAB BLOOD ORDERABLE S [facility] ([facility]) [address] [place] [address] * (ABNORMAL) aPTT - baseline (05/24/2024 8:25 AM EDT) aPTT <20.0(L) 25.0 - 35.0 Seconds 05/24/2024 9:24 AM EDT [facility] ([facility]) Comment:Clinical significanc e of the APTT is questionable in the presence of heparin. Blood Venous blood specimen / Unknown Arterial Line / Unknown 05/24/2024 8:25 AM EDT 05/24/2024 8:31 AM EDT Florence Dawson MD LAB BLOOD ORDERABLE S [facility]) [address] [place] [address] * Serum Qualitative (05/24/2024 8:25 AM EDT) hCG, Serum Negative 05/24/2024 8:53 AM EDT [facility] ([facility]) Blood Venous blood specimen / Unknown Arterial Line / Unknown 05/24/2024 8:25 AM EDT 05/24/2024 8:32 AM EDT Florence Dawson MD LAB BLOOD ORDERABLE S Performing Organization Address [facility]/ZIP Co de Phone Number [facility]) [address] [place] [id number] * (ABNORMAL) Magnesium (05/24/2024 8:25 AM EDT) Magnesium 1.7(L) 1.9 - 2.7 mg/dL 05/24/2024 8:58 AM EDT [facility] ([facility]) Blood Venous blood specimen / Unknown Arterial Line / Unknown 05/24/2024 8:25 AM EDT 05/24/2024 8:32 AM EDT Florence Dawson MD LAB BLOOD ORDERABLE S [facility] ([facility]) [address] [place], [place] [id number] * Lipase (05/24/2024 8:25 AM EDT) Lipase 39 11 - 82 U/L 05/24/2024 9:10 AM EDT [facility] ([facility]) Blood Venous blood specimen / Unknown Arterial Line / Unknown 05/24/2024 8:25 AM EDT 05/24/2024 8:32 AM EDT Florence Dawson MD LAB BLOOD ORDERABLE S [facility] ([facility]) [address] [place] [address] * (ABNORMAL) Comprehensive metabolic panel (05/24/2024 8:25 AM EDT) Sodium 139 136 - 145 mmol/L 05/24/2024 8:58 AM EDT [facility] ([facility]) Potassium 4.6 3.5 - 5.1 mmol/L 05/24/2024 8:58 AM EDT [facility] ([facility]) Chloride 107 98 - 107 mmol/L 05/24/2024 8:58 AM EDT [facility] ([facility]) CO2 28 21 - 31 mmol/L 05/24/2024 8:58 AM EDT [facility] ([facility]) Anion Gap 9 7 - 20 mmol/L 05/24/2024 8:58 AM EDT [facility] ([facility]) BUN 11 7 - 25 mg/dL 05/24/2024 8:58 AM EDT [facility] ([facility]) Creatinine 1.06 0.60 - 1.20 mg/dL 05/24/2024 8:58 AM EDT [facility] ([facility]) BUN/Creatinine Ratio 10.4 05/05 8:58 AM EDT [facility] ([facility]) Glucose 99 70 - 100 mg/dL 05/24/2024 8:58 AM EDT [facility] ([facility]) Calcium 8.6 8.6 - 10.3 mg/dL 05/24/2024 8:58 AM EDT [facility] ([facility]) AST 21 13 - 39 U/L 05/24/2024 8:58 AM EDT [facility] ([facility]) ALT (SGPT) 20 7 - 52 U/L 05/24/2024 8:58 AM EDT [facility] ([facility]) Alkaline Phosphatase 65 34 - 104 U/L 05/24/2024 8:58 AM EDT [facility] ([facility]) Total Protein 5.9(L) 6.0 - 8.3 g/dL 05/24/2024 8:58 AM EDT [facility] ([facility]) Albumin 3.4(L) 3.5 - 5.7 g/dL 05/24/2024 8:58 AM EDT [facility] ([facility]) Total Bilirubin 0.5 0.3 - 1.0 mg/dL 05/24/2024 8:58 AM EDT [facility] ([facility]) eGFR 65.6 >60.0 mL/min/1. 73m*2 05/24/2024 8:58 AM EDT [facility] ([facility]) Comment:The [facility] s estimated glomerular filtration rate (eGFR) will no longer include consideration of race in its calculation. The [employer] s eGFR Task Force developed new recommendations for the estimation of the glomerular filtration rate in the [place] They recommend immediate implementation of the new equation refit without the race variable in all laboratories because the calculation does not include race. In addition to not including race in the calculation and reporting, it included diversity in its development, and has acceptable performance characteristics and potential consequences that do not disproportionately affect any one group of individuals. Blood Venous blood specimen / Unknown Arterial Line / Unknown 05/24/2024 8:25 AM EDT 05/24/2024 8:32 AM EDT Florence Dawson MD LAB BLOOD ORDERABLE S [facility] ([facility]) [address] [place] [address] from Last 3 Months Advance Directives * Full Code (Latest Code Status on File) Date Activated Date Inactivated Comments 05/24/2024 7:50 AM 05/25/2024 2:20 PM Care Teams Administrative Assistant Front Desk Relationship Specialty Start Date End Date Josette Mendoza CNP [facility], [place] [address] PCP - General Family Medicine 06/28/23
--- OUTSIDE RECORDS SUMMARY | 2024-08-07 12:07 | XMS_ITS | Referral Summary ---
Author Organization [facility] Address [address] [place] [address] Care Team Providers Care Operating Theatre Technician Name Role Phone KellyShareeJosettecherri MOORE Primary Care Provider [phone] Encounters Date Type Department Care Team Description 08/06/2024 Orders Only [facility] [address] [place] [address] Norma Watson MA SVT (supraventricular tachycardia) 08/06/2024 9:00 AM EDT Office Visit [facility] [address] [place] [address] Cornell Peng MD WPW (Wtyrs-Xovlulpqa-Kvvs e syndrome) 06/11/2024 11:30 AM EDT Office Visit [facility] [address] [place] [address] Cornell Peng MD Palpitations 05/24/2024 5:47 AM EDT - 05/25/2024 12:20 PM EDT Hospital Encounter [facility] [address] [place] [phone] Ahsan Evans MD Mansur, Sarmed, MD Okoro, Bonaventure, MD Palpitations (Primary Dx); NSTEMI (non-ST elevated myocardial infarction) (CMS/HCC); Abnormal stress test Discharge Disposition: Home or Self Care (01) 05/24/2024 3:34 PM EDT - 05/24/2024 4:34 PM EDT Surgery [facility] Vascular Lab [address] [place] [phone] Silvestre Neumann MD Coronary angiography [[id number]] 05/24/2024 Travel from Last 3 Months Allergies Active Allergy Reactions Criticality Noted Date [...] beta-hCG DVT prophylaxis using VTE protocols per [facility] GI protection Protonix Monitor labs and correct [...] (06/28/2023): Added automatically from request for surgery [id number] Assessment & Plan (05/24/2024 8:07 AM EDT): [...] moment Mild intermittent asthma without complication 06/28/2023 Social History Tobacco Use Types Packs/Day Years Used Date Smoking Tobacco: Every Day Cigarettes Smokeless Tobacco: Never Tobacco Cessation:Ready to Q uit: Not Asked; Counseling Given: Not Answered Alcohol Use Standard Drinks/Week Comments Not Currently 0 (1 standard drink = 0.6 oz pur e alcohol) former [facility] Utilities Answer Date Recorded In the past 12 months has e [employer], gas, oil, or water [employer] threatened to shut off services in your [...] any time in the past 12 m [facility], were you homeless or living in a [facility] (including now)? No 05/24/2024 Hunger Vital Sign [...] Scheduled Procedures Name Priority Associated Diagnoses Date/Ti de EP STUDY SVT (supraventricular tachycardia) ABLATION SVT ATRIAL TACHYCARDIA SVT (supraventricular tachycardia) Procedures Procedure Name Priority Date/Time Associated Diagnosis [...] EDT Narrative 06/25/2024 3:14 PM EDT 1 [facility] Heart Station [address] [place] [address] [phone] (fax) Event [facility] Name: SHAHLA ARIAS Study Date: 05/25/2024 11:14 AM Date of : 1980 Location: [facility] Height: Age: 44 year(s) Patient Room: Weight: [...] 12:09 day 15 Procedure Staff Reading Group: [facility] Ordering Physician: BASHIR MORE Jordan Man: Leonor Worley Procedure Note Kellee Guillaume MD - 06/25/2024 1 [facility] Heart Station [address] [place] [address] [phone] (fax) Event [facility] Name: SHAHLA ARIAS Study Date: 05/25/2024 11:14 AM Date of : 1980 Location: [facility] Height: Age: 44 year(s) Patient Room: Weight: [...] 12:09 day 15 Procedure Staff Reading Group: [facility] Ordering Physician: BASHIR MORE Jordan Man: Leonor Worley Bashir More MD CV CARDIAC SERVICES PROCEDURES * (ABNORMAL) CBC (05/25/2024 4:17 AM EDT) Auto WBC 5.23 4.00 - 10.60 10*3/uL 05/25/2024 4:40 AM EDT [facility] ([facility]) RBC 3.36(L) 3.80 - 5.00 10*6/uL 05/25/2024 4:40 AM EDT [facility] ([facility]) Hemoglobin 9.7(L) 12.0 - 15.0 g/dL 05/25/2024 4:40 AM EDT [facility] ([facility]) Hematocrit 30.7(L) 36.0 - 45.0 % 05/25/2024 4:40 AM EDT [facility] ([facility]) MCV 91.4 82.0 - 98.0 fL 05/25/2024 4:40 AM EDT [facility] ([facility]) MCH 28.9 27.0 - 33.0 pg 05/25/2024 4:40 AM EDT [facility] ([facility]) MCHC 31.6(L) 32.0 - 35.0 g/dL 05/25/2024 4:40 AM T [facility] ([facility]) RDW 14.6 11.5 - 15.0 % 05/25/2024 4:40 AM EDT [facility] ([facility]) Platelets 189 150 - 400 10*3/uL 05/25/2024 4:40 AM EDT [facility] ([facility]) Blood Venous blood specimen / Unknown Arterial Line / Unknown 05/25/2024 4:17 AM EDT 05/25/2024 4:33 AM EDT Silvestre Neumann MD LAB BLOOD ORDERABLES [facility] ([facility]) [address] [place], [place] [id number] * (ABNORMAL) Basic metabolic panel (05/25/2024 4:17 AM EDT) Sodium 138 136 - 145 mmol/L 05/25/2024 4:56 AM EDT [facility] ([facility]) Potassium 4.9 3.5 - 5.1 mmol/L 05/25/2024 4:56 AM EDT [facility] ([facility]) Chloride 108(H) 98 - 107 mmol/L 05/25/2024 4:56 AM EDT [facility] ([facility]) CO2 25 21 - 31 mmol/L 05/25/2024 4:56 AM EDT [facility] ([facility]) BUN 11 7 - 25 mg/dL 05/25/2024 4:56 AM EDT [facility] ([facility]) Creatinine 1.04 0.60 - 1.20 mg/dL 05/25/2024 4:56 AM EDT [facility] ([facility]) Glucose 100 70 - 100 mg/dL 05/25/2024 4:56 AM EDT [facility] ([facility]) Calcium 8.7 8.6 - 10.3 mg/dL 05/25/2024 4:56 AM EDT [facility] ([facility]) Anion Gap 10 7 - 20 mmol/L 05/25/2024 4:56 AM EDT [facility] ([facility]) eGFR 67.1 >60.0 mL/min/1. 73m*2 05/25/2024 4:56 AM EDT [facility] ([facility]) Comment:[facility] s estimated glomerular filtration rate (eGFR) will [...] individuals. BUN/Creatinine Ratio 10.6 05/05 4:56 AM EDT [facility] ([facility]) Blood Venous blood specimen / Unknown Arterial Line / Unknown 05/25/2024 4:17 AM EDT 05/25/2024 4:33 AM EDT Silvestre Neumann MD LAB BLOOD ORDERABLES [facility] ([facility]) [address] [place] [address] * CORONARY ANGIOGRAPHY (05/24/2024 4:13 PM EDT) Anatomical Region Laterality Modality Other Narrative 05/24/2024 4:41 PM EDT PROCEDURE PHYSICIAN: Silvestre Neumann MD Clinical Presentation: 44 y.o. Female with history of hypertension, +smoker, peripheral artery disease, preexcitation on EKG who presented to [facility] as a transfer from [facility] where she initially presented complaining of abdominal pain, nausea and vomiting. Initial workup in [facility] showed elevated high-sensitivity troponin of 140 which [...] infiltrated over the right femoral artery. A 6-Turkish sheath was placed in right femoral artery. [...] - 0.7 IU/mL 05/24/2024 3:46 PM EDT [facility]) Comment:Rivaroxaban and Apix aban will interfere with the anti Xa assay used to monitor UFH and LMWH. Blood Venous blood specimen / Unknown Arterial Line / Unknown 05/24/2024 3:07 PM EDT 05/24/2024 3:25 PM EDT Silvestre Neumann MD LAB BLOOD ORDERABLES [facility] ([place]) [address] [place] [address] * (ABNORMAL) Urinalysis microscopic (05/24/2024 1:36 PM EDT) RBC, Urine 0-2 None Seen, 0-2 /HPF 05/24/2024 1:52 PM EDT [facility] ([facility]) WBC, Urine 3-5(A) None Seen, 0-2 /HPF 05/24/2024 1:52 PM EDT [facility] ([facility]) Squamous Epithelial, Urine Many(A) None Seen, Occasional , Few /LPF 05/24/2024 1:52 PM EDT [facility] ([facility]) Urine Urine specimen obtained by clean catch procedure / Unknown Non-blood Collection / Unknown 05/24/2024 1:36 PM EDT 05/24/2024 1:39 PM EDT Florence Dawson MD LAB URINE ORDERABLE S [facility] ([facility]) [address] [place] [address] * (ABNORMAL) Urinalysis (05/24/2024 1:36 PM EDT) Color, Urine Light-Yellow Colorless, Yellow, Light-Yellow 05/24/2024 1:52 PM EDT [facility] ([facility]) Clarity, Urine Clear Clear 05/24/2024 1:52 PM EDT [facility] ([facility]) pH, Urine 7.0 5.0 - 8.0 pH 05/24/2024 1:52 PM EDT [facility] ([facility]) Leukocytes, Urine Moderate(A) Negative 05/24/2024 1:52 PM EDT [facility] ([facility]) Nitrite, Urine Negative Negative 05/24/2024 1:52 PM EDT [facility] ([facility]) Protein, Urine Negative Negative mg/dL 05/24/2024 1:52 PM EDT [facility] ([facility]) Glucose, Urine Normal Normal mg/dL 05/24/2024 1:52 PM EDT [facility] ([facility]) Bilirubin, Urine Negative Negative 05/24/2024 1:52 PM EDT [facility] ([facility]) Specific [place], Urine 1.013 1.010 - 1.030 05/24/2024 1:52 PM EDT [facility] ([facility]) Ketones, Urine Negative Negative mg/dL 05/24/2024 1:52 PM EDT [facility] ([facility]) Blood, Urine Negative Negative 05/24/2024 1:52 PM EDT [facility] ([facility]) Urobilinogen, Urine Normal Normal mg/dL 05/24/2024 1:52 PM EDT [facility]) Urine Urine specimen obtained by clean catch procedure / Unknown Non-blood Collection / Unknown 05/24/2024 1:36 PM EDT 05/24/2024 1:39 PM EDT Florence Dawson MD LAB URINE ORDERABLE S [facility] ([facility]) [address] [place] [address] * COMPLETE ECHO (TTE) W/ IMAGING AGENT (05/24/2024 11:30 AM EDT) Anatomical Region Laterality Modality Other 05/24/2024 11:1 8 AM EDT Narrative 05/24/2024 11:59 AM EDT 1 1 [facility] Heart Station [address] [place] [address] [phone] (fax) [facility]ch[facility] Name: SHAHLA ARIAS Study Date: 05/24/2024 11:18 AM B/P: 100 mmHg/64 mmHg HR: Date of : 1980 Location: [facility] Height: 66 in. Age: 44 year(s) Patient [...] No pericardial effusion. Procedure Staff Reading Group: [facility] Death Claim Clerk: Elyssa Webber RDCS Ordering Physician: BASHIR KUMAR Procedure Note Kellee Guillaume MD - 05/24/2024 1 1 [facility] Heart Station [address] [place] [address] [phone] (fax) [facility] Name: SHAHLA ARIAS Study Date: 05/24/2024 11:18 AM B/P: 100 mmHg/64 mmHg HR: Date of : 1980 Location: [facility] Height: 66 in. Age: 44 year(s) Patient [...] No pericardial effusion. Procedure Staff Reading Group: [facility] Death Claim Clerk: Elyssa Webber RDCS Ordering Physician: BASHIR MORE Bashir More MD CV ECHO PROCEDURES * (ABNORMAL) High Sensitivity Troponin I (05/24/2024 8:25 AM EDT) High Sensitivity Troponin I 52(HH) <15 ng/L 05/24/2024 9:09 AM EDT [facility]) Blood Venous blood specimen / Unknown Arterial Line / Unknown 05/24/2024 8:25 AM EDT 05/24/2024 8:32 AM EDT Florence Dawson MD LAB BLOOD ORDERABLE S [facility] ([facility]) [address] [place] [address] * (ABNORMAL) CBC auto differential (05/24/2024 8:25 AM EDT) Auto WBC 5.00 4.00 - 10.60 10*3/uL 05/24/2024 9:22 AM EDT [facility] ([facility]) RBC 3.29(L) 3.80 - 5.00 10*6/uL 05/24/2024 9:22 AM EDT [facility] ([facility]) Hemoglobin 9.7(L) 12.0 - 15.0 g/dL 05/24/2024 9:22 AM EDT [facility] ([facility]) Hematocrit 30.5(L) 36.0 - 45.0 % 05/24/2024 9:22 AM EDT [facility] ([facility]) MCV 92.7 82.0 - 98.0 fL 05/24/2024 9:22 AM EDT [facility] ([facility]) MCH 29.5 27.0 - 33.0 pg 05/24/2024 9:22 AM EDT [facility] ([facility]) MCHC 31.8(L) 32.0 - 35.0 g/dL 05/24/2024 9:22 AM EDT [facility] ([facility]) RDW 14.7 11.5 - 15.0 % 05/24/2024 9:22 AM EDT [facility] ([facility]) Platelets 153 150 - 400 10*3/uL 05/24/2024 9:22 AM EDT [facility] ([facility]) Comment:Slide checked, no cl umps or clots seen nRBC % 0.0 0 % 05/24/2024 9:22 AM EDT [facility] ([facility]) Immature Platelet Fraction % 1.3 0.8 - 6.3 % 05/24/2024 9:22 AM EDT [facility] ([facility]) Blood Venous blood specimen / Unknown Arterial Line / Unknown 05/24/2024 8:25 AM EDT 05/24/2024 8:32 AM EDT [facility] Eunice KELSEY LAB BLOOD ORDERABLE S [facility] [address] [place] [address] * (ABNORMAL) Manual Differential (05/24/2024 8:25 AM EDT) Immature Granulocytes % 0.4 0.0 - 1.0 % 05/24/2024 9:22 AM EDT [facility]) Neutrophils Absolute 3.3 1.6 - 7.6 10*3/uL 05/24/2024 9:22 AM EDT [facility] ([facility]) Lymphocytes Absolute 1.07(L) 1.20 - 4.00 10*3/uL 05/24/2024 9:22 AM EDT [facility] ([facility]) Monocytes Absolute 0.44 0.10 - 1.00 10*3/uL 05/24/2024 9:22 AM EDT [facility] ([facility]) Eosinophils Absolute 0.10 0.00 - 0.50 10*3/uL 05/24/2024 9:22 AM EDT [facility] ([facility]) Basophils Absolute 0.03 0.00 - 0.20 10*3/uL 05/24/2024 9:22 AM T [facility] ([facility]) Neutrophils % 66.8 40.0 - 72.0 % 05/24/2024 9:22 AM EDT [facility] ([facility]) Lymphocytes % 21.4 20.0 - 45.0 % 05/24/2024 9:22 AM EDT [facility] ([facility]) Monocytes % 8.8 5.0 - 12.0 % 05/24/2024 9:22 AM T [facility]) Eosinophils % 2.0 0.0 - 6.0 % 05/24/2024 9:22 AM EDT [facility] ([facility]) Basophils % 0.6 0.0 - 1.0 % 05/24/2024 9:22 AM T [facility] ([facility]) Immature Granulocytes Absolute 0.02 0.00 - 0.20 10*3/uL 05/24/2024 9:22 AM T [facility] ([facility]) Blood Venous blood specimen / Unknown Arterial Line / Unknown 05/24/2024 8:25 AM EDT 05/24/2024 8:32 AM EDT Florence Dawson MD LAB BLOOD ORDERABLE S Performing Organization Address City/[facility]/ZIP Co de Phone Number [facility] ([facility]) [address] [place] [address] * (ABNORMAL) aPTT - baseline (05/24/2024 8:25 AM EDT) aPTT <20.0(L) 25.0 - 35.0 Seconds 05/24/2024 9:24 AM EDT [facility] ([facility]) Comment:Clinical significanc e of the APTT is questionable in the presence of heparin. Blood Venous blood specimen / Unknown Arterial Line / Unknown 05/24/2024 8:25 AM EDT 05/24/2024 8:31 AM EDT Florence Dawson MD LAB BLOOD ORDERABLE S Performing Organization Address City/[facility]/ZIP Co de Phone Number [facility] ([facility]) [address] [place], [place] [id number] * Serum Qualitative (05/24/2024 8:25 AM EDT) hCG, Serum Negative 05/24/2024 8:53 AM EDT [facility] ([facility]) Blood Venous blood specimen / Unknown Arterial Line / Unknown 05/24/2024 8:25 AM EDT 05/24/2024 8:32 AM EDT Florence Dawson MD LAB BLOOD ORDERABLE S Performing Organization Address City/[facility]/ZIP Co de Phone Number [facility] ([facility]) [address] [place] [address] * (ABNORMAL) Magnesium (05/24/2024 8:25 AM EDT) Magnesium 1.7(L) 1.9 - 2.7 mg/dL 05/24/2024 8:58 AM EDT [facility] ([facility]) Blood Venous blood specimen / Unknown Arterial Line / Unknown 05/24/2024 8:25 AM EDT 05/24/2024 8:32 AM EDT Florence Dawson MD LAB BLOOD ORDERABLE S [facility] ([facility]) [address] [place], [place] [id number] * Lipase (05/24/2024 8:25 AM EDT) Lipase 39 11 - 82 U/L 05/24/2024 9:10 AM EDT [facility] ([facility]) Blood Venous blood specimen / Unknown Arterial Line / Unknown 05/24/2024 8:25 AM EDT 05/24/2024 8:32 AM EDT Florence Dawson MD LAB BLOOD ORDERABLE S Performing Organization Address City/[facility]/ZIP Co de Phone Number [facility] ([facility]) [address] [place] [address] * (ABNORMAL) Comprehensive metabolic panel (05/24/2024 8:25 AM EDT) Sodium 139 136 - 145 mmol/L 05/24/2024 8:58 AM EDT [facility] ([facility]) Potassium 4.6 3.5 - 5.1 mmol/L 05/24/2024 8:58 AM EDT [facility] ([facility]) Chloride 107 98 - 107 mmol/L 05/24/2024 8:58 AM EDT [facility] ([facility]) CO2 28 21 - 31 mmol/L 05/24/2024 8:58 AM EDT [facility] ([facility]) Anion Gap 9 7 - 20 mmol/L 05/24/2024 8:58 AM EDT [facility] ([facility]) BUN 11 7 - 25 mg/dL 05/24/2024 8:58 AM EDT [facility] ([facility]) Creatinine 1.06 0.60 - 1.20 mg/dL 05/24/2024 8:58 AM EDT [facility] ([facility]) BUN/Creatinine Ratio 10.4 05/05 8:58 AM T [facility] ([facility]) Glucose 99 70 - 100 mg/dL 05/24/2024 8:58 AM T [facility] ([facility]) Calcium 8.6 8.6 - 10.3 mg/dL 05/24/2024 8:58 AM T [facility] ([facility]) AST 21 13 - 39 U/L 05/24/2024 8:58 AM T [facility] ([facility]) ALT (SGPT) 20 7 - 52 U/L 05/24/2024 8:58 AM T [facility] ([facility]) Alkaline Phosphatase 65 34 - 104 U/L 05/24/2024 8:58 AM [facility] ([facility]) Total Protein 5.9(L) 6.0 - 8.3 g/dL 05/24/2024 8:58 AM [facility] ([facility]) Albumin 3.4(L) 3.5 - 5.7 g/dL 05/24/2024 8:58 AM [facility] ([facility]) Total Bilirubin 0.5 0.3 - 1.0 mg/dL 05/24/2024 8:58 AM [facility] ([facility]) eGFR 65.6 >60.0 mL/min/1. 73m*2 05/24/2024 8:58 AM [facility] ([facility]) Comment:[facility] s estimated glomerular filtration rate (eGFR) will [...] Florence Dawson MD LAB BLOOD ORDERABLE S [facility] [address] [place] [address] from Last 3 Months Advance Directives * Full Code (Latest Code Status on File) Date Activated Date Inactivated Comments 05/24/2024 7:50 AM 05/25/2024 2:20 PM Care Teams Operating Theatre Technician Relationship Specialty Start Date End Date Josette Mendoza CNP [facility], [facility] [place] [address] PCP - General Family Medicine 06/28/23
[2024-08-07 12:38] LABS: Basophils Absolute Auto 0.1 10^3/uL (0.0-0.1); Basophils Percent Auto 1.2 % (0.2-2.0); Eosinophils Absolute Auto 0.5 10^3/uL (0.0-0.7); Eosinophils Percent Auto 4.7 % (0.9-7.0); Hematocrit 37.9 % (36.0-48.0); Hemoglobin 12.5 g/dL (12.0-16.0); Immature Granulocytes Abs Auto 0.06 10^3/uL (0.00-0.03); Immature Granulocytes Pct Auto 0.6 % (0.0-0.5); Lymphocytes Percent Auto 20.7 % (20.5-60.0); Mean Corpuscular Hemoglobin 30.3 pg (26.7-34.0); Mean Corpuscular Volume 91.8 fL (81.0-99.0); Mean Platelet Volume 9.9 fL (9.5-13.5); Monocytes Absolute Auto 0.6 10^3/uL (0.3-0.8); Monocytes Percent Auto 6.2 % (1.7-12.0); Neutrophils Absolute Auto 6.4 10^3/uL (1.4-6.5); Neutrophils Percent Auto 66.6 % (43.0-75.0); Platelet Count 284 10^3/uL (150-450); Red Blood Count 4.13 10^6/uL (4.20-5.40); Red Cell Distribution Width 14.6 % (11.0-15.0); White Blood Count 9.5 10^3/uL (4.0-11.0)
[2024-08-07 13:02] LABS: Alanine Aminotransferase 27 U/L (14-59); Albumin Globulin Ratio 0.8; Albumin Level 3.3 g/dL (3.4-5.0); Alkaline Phosphatase 112 U/L (46-116); Anion Gap 12.7; Aspartate Amino Transferase 19 U/L (15-37); BUN Creatinine Ratio 16.3; Bilirubin Total 0.6 mg/dL (0.2-1.0); Calcium 9.5 mg/dL (8.5-10.1); Carbon Dioxide 29.1 mmol/L (21.0-32.0); Chloride 103 mmol/L (98-107); Estimated GFR (African America >60 (>=60 mL/min/1.73m^2); Estimated GFR (Non-African Ame >60 (>=60 mL/min/1.73m^2); Globulin 3.9 g/dL; Glucose 105 mg/dL (74-106); Potassium 4.8 mmol/L (3.5-5.1); Sodium 140 mmol/L (136-145); Total Protein 7.2 g/dL (6.4-8.2)
[2024-08-08 05:08] LABS: HCV Ab Non Reactive (Non Reactive); HIV Ab/p24 Ag Screen Non Reactive (Non Reactive); Hep B Core Ab, IgM Negative (Negative); Hep B Core Ab, Tot Negative (Negative)
== END 2024-08-07 12:03 | disposition home or self-care (01) ==
LOC: LAB 12:04
PROVIDERS: PCP Nurse Practitioner Family
DX: F10.20 Alcohol dependence, uncomplicated (principal)
CPT/HCPCS: 36415; 80053; 85025; 86704; 86803; 87389

== ENCOUNTER 2024-08-27 19:44 | Outpatient (OUT) | payer MEDICAID, SELFPAY | END 2024-08-27 19:45 | disposition home or self-care (01) | LOC: SLEEP 19:44 | PROVIDERS: PCP Nurse Practitioner Family; Visit Provider Nurse Practitioner Family | DX: G47.33 Obstructive sleep apnea (adult) (pediatric) (principal) | CPT/HCPCS: 95811 ==

== ENCOUNTER 2024-09-13 22:04 | Emergency (ER) | payer MEDICAID, SELFPAY ==
[2024-09-13] VITALS (16 sets, daily range): BP systolic 96–102; BP diastolic 50–66; PULSE 81–89; TEMP 36.7; O2SAT 96–98; BMI 38.7
--- OUTSIDE RECORDS SUMMARY | 2024-09-13 22:18 | XMS_ITS | CCD ---
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 Name Role Phone DIPESH MORRIS Unavailable Unavailable TAMARA CALERO Unavailable Unavailable Em CASTING AND 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 RF DEPLOYMENT, Debo Unavailable Dennis Sarmiento MD Unavailable Belcastro CASTING AND 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 RF DEPLOYMENT, Marcella Unavailable [phone] Tamara Calero Unavailable Dennis Sarmiento MD Unavailable Belcastro CASTING AND 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 RF DEPLOYMENT, Marcella Unavailable NICKYC, DR SHAH Primary Care Unavailable JAGJIT, DR ISAC Elias Consulting Unavailable SAMSA, MELVA Admitting Unavailable SAMSA, MELVA Attending Unavailable LONDON, DR STEWART Consulting Unavailable SAMSA, MELVA Procedure Practitioner Unavailab claudia GUILLEN, DR TREVINO Consulting Unavailable NADERECurt, DR CRISTY Hopson Consulting Unavailable WINNIE FRANKLIN [...] Consulting Unavailable Dennis Sarmiento MD Unavailable Belcastro CASTING AND 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 RF DEPLOYMENT, Marcella Unavailable [phone] Abdias, DO Tamara Primary Care Provider DO Antolin Abarca Emergency Provider MD Geo Loomis Admit Provider [phone] MD Geo Loomis Attending Provider [phone] Abdias, DO Tamara Primary Care Provider DO Antolin Abarca Emergency Provider [phone] MD Geo Loomis Admit Provider MD Geo Loomis Attending Provider [phone] JOHAN STEPHENS Referring Unavailable PROVIDER, UNKNOWN Admitting Unavailable PROVIDER, UNKNOWN Attending Unavailable DENNIS NICHOLE Referring Unavailable PROVIDER, UNKNOWN Admitting Unavailable PROVIDER, UNKNOWN Attending Unavailable PATIENT, SELF Referring Unavailable PROVIDER, UNKNOWN Admitting Unavailable PROVIDER, UNKNOWN Attending Unavailable Chloé WILSONENGINEER RF DEPLOYMENT, Marcella Unavailable [phone] Priyanka Lemon Unavailable Abdias, DO Seayew Primary Care Provider MD Vivek Antoine Attending Provider [phone] Abdias, Tamara Primary Care Provider MD Vivek Antoine Attending Provider FARNAZ Mandel Primary Care Provider Noah [facility] Junie Walker Emergency Provider [phone] Abdias, DO Posada Primary Care Provider MD Vivek Antoine Attending Provider [phone] STEPHANIE WEBSTER Attending Unavailable TAMARA CALERO Referring Unavailable ABDIAS, TAMARA A Primary Care Unavailable ABDIAS, TAMARA A Referring Unavailable ABDIAS, TAMARA A Primary Care Unavailable STEPHANIE WEBSTER Attending Unavailable ABDIAS, TAMARA Hopson Referring Unavailable TEQUILA, JOSETTE S Primary Care Unavailable Abdias, Tamara Primary Care Provider MD Vivek Antoine Attending Provider DO Geena Caleroew Primary Care Provider MD Vivek Antoine Attending Provider MD Art Pa Emergency Provider MD Jean Paul Loomismi Admit Provider MD Geo Loomis Attending Provider [phone] DO Abdias Tamara Primary Care Provider MD Vivek Antoine Attending Provider Josette Gore Primary Care Provider Abdias JACKSON Tamara Primary Care Provider [phone] Vivek Antoine MD Attending Provider [phone] Tamara Calero DO A Primary Care Provider Abdias JACKSON, Tamara Primary Care Provider [phone] Vivek Antoine MD Attending Provider Tequila MCKINNEY-C, Josette Springer Primary Care Provider [phone] Cole Cast DO Emergency Provider [phone] Vivek Antoine MD Admit Provider Josette Gore Primary Care Provider Vivek Antoine MD Attending Provider Abdias JACKSON Tamara Primary Care Provider [phone] Abdias JACKSON, Tamara Primary Care Provider Rosendo KELSEY, Heladio Villalobos Emergency Provider CORNELL RODRIGUEZ Attending Unavailable PAT CALLAHAN Referring Unavailable ERASTO DAWSON Admitting Unavailable SHREYAS RODRIGUEZ Attending Unavailable VIRA HEATH Referring Unavailable VIRA HEATH Referring Unavailable CORNELL RODRIGUEZ Attending Unavailable BENITO PRADO Attending Unavailable Tequila Josette Racheal Primary Care Unavailable Arash, Vivek Attending Unavailab Geo Mitchell Admitting Unavailable Heladio Robbins Jr Attending Unavailable Heladio Robbins Jr Admitting Unavailable Josette Mandel Primary Care Unavailable Tamara Calero Primary Care Unavailable Arash, Vivek Admitting Unavailab le Arash, Vivek Attending Unavailab Josette Gonzales Primary Care Unavailable Arash, Vivek Admitting Unavailab le Arash, Vivek Attending Unavailab le Allergies Allergy Classification Reported Allergen(s) Allergy Type Date of Onset Reaction(s) Facility (20 sources) Ciprofloxacin; Translations: [CIPROFLOXACIN] Drug Allergy 11-02-19 [facility]: Comment on above: Patient not fully ce rtain of reaction but believes it caused flu-like symptoms (20 sources) metroNIDAZOLE; Translations: [METRONIDAZOLE] Drug Allergy 10-13-19 19 Edema, Other (See Comments) [employer] Other Comment on above: Patient not sure of reaction but states a previous physician informed her she had reacted to it. (20 sources) Penicillins; Translations: [PENICILLINS] Propensity to adverse reactions to drug 10-13-19 19 [facility], [facility] ([facility] sources[facility] Penicillin G; Translations: [PENICILLIN G] Drug Allergy 10-13-19 19 swelling, Facial Swelling [facility] (1 source) Ciprofloxacin Drug Allergy 10-06-19 20 [facility] (1 source) metroNIDAZOLE Drug Allergy 10-06-19 20 [facility] (1 source) Penicillin Drug Allergy 10-06-19 [facility] (16 sources) Quinolones (Antibiotic); Translations: [Quinolones] Propensity to adverse reactions 05-11-19 23 Fatigued [facility] (8 sources) ciprofibrate; Translations: [CIPROFIBRATE] Drug Allergy 10-13-19 19 Facial Swelling [facility] (1 source) Ciprofloxacin Drug Allergy 07-07-19 [facility] (1 source) metroNIDAZOLE Drug Allergy 07-07-19 [facility] (1 source) Penicillin Drug Allergy 07-07-19 [facility] Medications Current Medications Medication Drug Class(es) Dates Sig (Normalized) Sig (Original) acetaminophen 325 mg oral tablet (17 sources) Start: 08-04-2021 take 2 tablets by mouth every six hours acetaminophen (TYLENOL) 325 mg tablet Take 2 Tablets by mouth every 6 (six) hours. 30 Tablet 08/04/2021 11:28 AM EDT 08/04/2021 Active Start: 07-31-2021 take 650 mg by mouth every six hours 650 mg, Oral, Every 6 hours, First dose on 07/31/21 at 0230, Until Discontinued, Post-op Start: 09-08-2020 End: 07-31-2021 take 1 tablet by mouth every six hours as needed for pain acetaminophen (TYLENOL) 500 mg tablet Take 1 tablet (500 mg total) by mouth every 6 (six) hours as needed for pain. 30 tablet 09/08/2020 Active aspirin 81 mg chewable tablet (17 sources) Platelet Aggregation Inhibitor, Nonsteroidal Anti-inflammatory Drug Start: 03-07-2024 aspirin 81 mg chewable tablet Chew 1 tablet (81 mg total) and swallow in the morning. 90 tablet 4 03/07/2024 Active Start: 08-21-2023 take 81 mg by mouth once daily Aspirin Active 81 MG PO Daily August 21, 2023 12:00am Start: 07-07-2020 End: 05-18-2023 take 1 tablet by mouth once daily aspirin 81 mg 1 tabl et Orally Once a day 90 tablet 3 05/18/2023 Active Aspirin 81 mg tablet,delayed release (DR/EC) (5 sources) Start: 08-21-2023 take 1 tablet by mouth once daily Aspirin 81 mg tablet,delayed release (DR/EC) Active 81 MG PO Daily August 21, 2023 12:00am Start: 08-21-2023 take 1 tablet by claudine th once daily Aspirin 81 mg tablet,delayed release (DR/EC) Active 81 MG PO Daily August 20, 2023 11:00pm atorvastatin 40 mg oral tablet (18 sources) HMG-CoA Reductase Inhibitor Start: 06-26-2023 take 1 tablet by mouth once daily Atorvastatin 40 mg tablet Active 40 MG PO Daily August 21, 2023 12:00am benzonatate 100 mg oral capsule (10 sources) Non-narcotic Antitussive Start: 06-25-2024 take 1 capsule by mouth three times daily Benzonatate 100 mg capsule Active 100 MG PO Three times daily 23 09June 25, 2024 12:00am Start: 08-31-2023 End: 09-28-2023 take 1 capsule by mouth three times daily Benzonatate 100 mg capsule Discontinued 100 MG PO Three times daily 23 09August 31, 2023 12:00am September 28, 2023 1:31pm calcium carbonate 500 mg chewable tablet (1 source) Start: 08-01-2021 calcium carbon ate (TUMS) 500 MG tablet CHEW cholecalciferol 0.05 mg oral tablet (20 sources) Vitamin D Start: 09-28-2023 take 1 tablet by mouth once daily Cholecalciferol (Vitamin D3) 50 mcg (2,000 unit) tablet Active 50 MCG PO Daily September 28, 2023 12:00am Start: 06-06-2023 cholecalcifero l, vitamin D3, 2,000 units tablet Take by mouth daily. 06/06/2023 Active Start: 05-15-2022 End: 04-24-2023 take 1 capsule by mouth once daily Cholecalciferol (Vitamin D3) 50 mcg (2,000 unit) capsule Discontinued 50 MCG PO Daily May 15, 2022 1:00am April 24, 2023 8:55am clonazePAM 0.5 mg oral tablet (19 sources) Benzodiazepine Start: 06-23-2021 take 1 tablet by mouth once daily for anxiety clonazePAM (KlonoPIN) 0.5 MG tablet take 1 tablet by mouth once daily if needed for anxiety 06/23/2021 Active clopidogrel 75 mg oral tablet (20 sources) P2Y12 Platelet Inhibitor Start: 05-18-2023 take 1 tablet by mouth once daily Clopidogrel 75 mg tablet Active 75 MG PO Daily August 21, 2023 12:00am ferrous sulfate 325 mg delayed release oral tablet (5 sources) Start: 08-20-2021 take 1 tablet by mouth every other day Ferrous Sulfate 325 (65 Fe) MG 1 tablet Orally Every other day for 90 day(s) Aug, Active take 1 tablet by mouth three nisa es weekly FeroSuL 325 mg (65 mg iron) tablet Take 1 tablet (325 mg total) by mouth 3 (three) times a week. Active fluticasone propionate 0.05 mg/actuat metered dose nasal spray (1 source) Corticosteroid Start: 12-20-2022 take 1 spray(s) nasal route once daily Flonase Allergy Relief 50 MCG/ACT 1 spray in each nostril Nasally Once a day for 14 day(s) Dec, Active hydroCHLOROthiazide 12.5 mg / olmesartan medoxomil 20 mg oral tablet (20 sources) Thiazide Diuretic, Angiotensin 2 Receptor Jordi Start: 08-21-2023 take 1 tablet by mouth once daily Olmesartan-H ydrochloroth iazide 20-12.5 mg tablet Active 1 TAB PO Daily August 21, 2023 12:00am Start: 04-24-2023 take 1 tablet by claudine th once in the morning olmesartan-hydroCHLOROthiazide (BENICAR HCT) 20-12.5 mg per tablet Take 1 tablet by mouth in the morning. 04/24/2023 Active Start: 04-24-2023 End: 07-14-2023 take 1 tablet by mouth once daily Olmesartan-Hydrochlorothiazide 20-12.5 m g tablet Discontinued 1 TAB PO Daily 90 90 April 24, 2023 1:00am July 14, 2023 11:57am hydrOXYzine pamoate 50 mg oral capsule (20 sources) Antihistamine Start: 06-14-2024 take 1 capsule by mouth every six hours as needed for anxiety Hydroxyzine Pamoate 50 mg Capsule Active 50 MG PO Q6H as needed for Anxiety 30 15 June 14, 2024 12:00am Start: 02-12-2024 End: 06-11-2024 take 1 capsule by mouth three times daily as needed Hydroxyzine Pamoate 25 mg capsule Discontinued 25 MG PO Three times daily as needed February 12, 2024 1:00am June 11, 2024 4:54pm Start: 04-24-2023 End: 02-12-2024 take 1 capsule by mouth three times daily Hydroxyzine Pamoate 50 mg capsule Discontinued 50 MG PO Three times daily April 24, 2023 4:36pm February 12, 2024 4:29pm FreeTextSig: take 1 capsule by mouth three times a day Oral; Note: Source Status: Taking; Refills: 0; Qty: 90 Each; Provider: SUSHANT BRISENO take [address] [facility] three times daily hydrOXYzine Pamoate 50 MG take 1 capsule by mouth three times a day Oral for 30 Days Active take 1 tablet by claudine every six hours hydrOXYzine HCl 50 MG 1 tablet as needed Orally every 6 hrs Active ibuprofen 800 mg oral tablet (6 sources) Nonsteroidal Anti-inflammatory Drug Start: 07-20-2022 take 1 tablet by mouth every six hours as needed for pain ibuprofen (MOTRIN) 800 mg tablet Take 1 tablet (800 mg total) by mouth every 6 (six) hours as needed for pain. 30 tablet 07/20/2022 Active 24 hr levomilnacipran 40 mg extended release oral capsule (20 sources) Serotonin and Norepinephrine Reuptake Inhibitor Start: 06-25-2024 take 1 capsule by mouth every twenty-four hours Levomilnacipran (Fetzima) 40 mg capsule,extended release 24 hr Active MG PO June 25, 2024 12:00am Start: 06-14-2024 End: 06-25-2024 take 1 capsule by mouth once daily Levomilnacipran (Fetzima) 20 mg Capsule,Extended Release 24 Hr Discontinued 60 MG PO Daily 45 June 14, 2024 12:00am June 25, 2024 2:59pm Start: 06-11-2024 End: 06-25-2024 take 1 capsule by mouth once daily Levomilnacipran (Fetzima) 20 mg capsule,extended release 24 hr Discontinued 40 MG PO Daily June 11, 2024 12:00am June 25, 2024 2:59pm Start: 09-28-2023 End: 11-14-2023 take 1 capsule by mouth once daily Levomilnacipran (Fetzima) 40 mg capsule,extended release 24 hr Discontinued 40 MG PO Daily September 28, 2023 12:00am November 14, 2023 11:17am Start: 09-28-2023 End: 11-14-2023 take 1 capsule by mouth once daily Levomilnacipran (Fetzima) 80 mg capsule,extended release 24 hr Discontinued 80 MG PO Daily September 28, 2023 12:00am November 14, 2023 11:17am Start: 04-24-2023 End: 09-28-2023 take 1 capsule by mouth once daily Levomilnacipran 40 mg capsule,extended release 24 hr Discontinued 120 MG PO Daily April 24, 2023 1:00am September 28, 2023 1:33pm FreeTextSig: Oral; Note: Source Status: Taking; Qty: 30 Capsule; Provider: Abdias Posada ( ) Start: 04-24-2023 take [address] [facility] once daily Levomilnacipran Active 40 MG PO Daily April 24, 2023 1:00am FreeTextSig: Oral; Note: Source Status: Taking; Qty: 30 Capsule; Provider: Abdias Posada ( ) Start: 05-29-2022 End: 04-24-2023 take 1 capsule by mouth once daily Levomilnacipran 80 mg capsule,extended release 24 hr Discontinued 80 MG PO Daily May 29, 2022 12:00am April 24, 2023 8:55am Start: 05-15-2022 End: 05-29-2022 take 1 capsule by mouth once daily Levomilnacipran (Fetzima) 40 mg Capsule,Extended Release 24 Hr Discontinued 40 MG PO Daily May 15, 2022 1:00am May 29, 2022 10:25am take [address] [facility] every twenty-four hours in the morning levomilnacipran (FETZIMA) 80 mg capsule,extended release 24 hr Take 120 mg by mouth in the morning. Active LORazepam 2 mg oral tablet (19 sources) Benzodiazepine Start: 06-25-2024 Lorazepam 2 mg tablet Active MG PO June 25, 2024 12:00am Start: 11-08-2023 End: 06-25-2024 take 2 tablets by mouth twice daily Lorazepam 1 mg tablet Discontinued 2 MG PO Twice daily November 08, 2023 12:00am June 25, 2024 2:58pm Start: 11-08-2023 [facility] as needed for anxiety Lorazepam 1 mg tablet Active 1 MG PO Three times daily as needed for anxiety November 07, 2023 11:00pm Start: 08-28-2023 End: 11-08-2023 take 1 tablet by mouth every six hours as needed for anxiety Lorazepam 1 mg tablet Discontinued 1 MG PO Every 6 hours as needed for anxiety 7 August 28, 2023 12:00am November 08, 2023 7:47pm methocarbamol 750 mg oral tablet (3 sources) Muscle Relaxant Start: 07-31-2021 End: 08-11-2021 take 1 tablet by mouth four times daily as needed methocarbamol (ROBAXIN) 750 MG tablet Take 1 Tablet by mouth 4 times daily as needed for up to 7 days. 28 Tablet 0 08/04/2021 08/11/2021 Active methylPREDNISolone 4 mg oral tablet (7 sources) Corticosteroid Start: 06-25-2024 take 1 tablet by mouth once Methylprednisolone (Medrol (Juan)) 4 mg tablets,dose pack Active 0 PO per package directions June 25, 2024 12:00am PO PER PKG DIR for 6 days Start: 03-31-2024 End: 06-11-2024 take 1 tablet by mouth once Methylprednisolone (Medrol (Juan)) 4 mg tablets,dose pack Discontinued 0 PO per package directions March 31, 2024 1:00am June 11, 2024 4:55pm PO PER PKG DIR 24 hr metoprolol succinate 50 mg extended release oral tablet (12 sources) beta-Adrenergic Jordi Start: 06-11-2024 take 1 tablet by mouth once daily Metoprolol Succinate 50 mg tablet extended release 24 hr Active 50 MG PO Daily June 11, 2024 12:00am Start: 09-28-2023 End: 11-08-2023 take 1 tablet by mouth once daily Metoprolol Tartrate 25 mg tablet Discontinued 25 MG PO Daily September 28, 2023 12:00am November 08, 2023 7:46pm naloxone hydrochloride 40 mg/ml nasal spray (10 sources) Opioid Antagonist Start: 08-04-2021 naloxone 4 m g/0.1 mL nasal liquid Use 1 Points in one nostril (alternate sides) as needed for Drug Overdose for up to 1 dose. Every 2-3 mins. until help arrives. 1 Each 1 08/04/2021 11:28 AM EDT 08/04/2021 Active Start: 07-31-2021 0.4 mg, Intrav [...] times daily as needed for agitation August 21, 2023 12:00am Start: 05-25-2022 End: 04-24-2023 take 1 tablet by mouth every six hours as needed Olanzapine 10 mg tablet Discontinued 10 MG PO Q6H as needed for Agitation May 25, 2022 12:34am April 24, 2023 8:55am Start: 05-15-2022 End: 05-25-2022 take 5 mg by mouth every six hours as needed Olanzapine 10 mg tablet Discontinued 5 MG PO Q6H as needed for Agitation May 15, 2022 1:00am May 25, 2022 12:34am Start: 05-15-2022 End: 05-25-2022 take 5 mg by mouth every six hours Olanzapine Discontinued 5 MG PO Q6H May 15, 2022 1:00am May 25, 2022 12:34am omeprazole 40 mg delayed release oral capsule (20 sources) Proton Pump Inhibitor Start: 08-28-2023 take 1 capsule by mouth twice daily Omeprazole 40 mg capsule,delayed release(DR/EC) Active 40 MG PO Twice daily August 28, 2023 12:00am Start: 05-01-2023 End: 08-28-2023 take 1 capsule by mouth once daily before breakfast Omeprazole 40 mg capsule,delayed release(DR/EC) Discontinued 0 .ROUTE .COMPLEX 90 May 01, 2023 12:01pm August 28, 2023 12:42pm take 1 capsule by mouth EVERY MORNING BEFORE BREAKFAST Start: 03-31-2021 End: 05-01-2023 take 1 capsule by mouth once daily Omeprazole 40 mg capsule,delayed release(DR/EC) Discontinued 40 MG PO Daily April 24, 2023 1:00am May 01, 2023 12:01pm FreeTextSi capsule 30 minutes before morning meal Orally Once a day; Note: Source Status: Taking; Refills: 1; Provider: Braniecki Tamara A 2 ml ondansetron 2 mg/ml injection (1 [...] Orally every 6 hrs Active vilazodone hydrochloride 20 mg oral tablet (7 sources) Start: 06-25-2024 Vilazodone 20 mg tablet Active MG PO June 25, 2024 12:00am Start: 03-31-2024 End: 06-11-2024 Vilazodone 10 mg tablet Disc ontinued 10 MG PO March 31, 2024 1:00am June 11, 2024 4:55pm Completed/Discontinued Medications Medication Drug Class(es) Dates Sig (Normalized) Sig (Original) acetaminophen 325 mg / HYDROcodone bitartrate 5 mg oral tablet (15 sources) Opioid Agonist Start: 11-10-2016 End: 03-31-2021 take 1-2 tablets by mouth every four hours as needed for pain Hydrocodone-Acetam inophen (Varna) 5-325 mg tablet Discontinued 1 TAB PO Q4H as needed for pain November 10, 2016 March 31, 2021 12:23pm 1-2 Tabs Q 4 hours PRN for pain acetaminophen 325 mg / oxyCODONE hydrochloride 5 mg oral tablet (15 sources) Opioid Agonist Start: 04-02-2021 End: 05-11-2022 take 1 tablet by mouth every four hours as needed for pain Oxycodone-Acetamin ophen 5-325 mg Tablet Discontinued 1 TAB PO Q4H as needed for pain 0 April 02, 2021 May 11, 2022 1:32am [id number] 200 actuat albuterol 0.09 mg/actuat metered dose inhaler (20 sources) beta2-Adrenergic Agonist Start: 03-31-2024 End: 06-25-2024 Albuterol Sulfate 90 mcg/actuation HFA aerosol inhaler Discontinued 2 INH INHALATION EVERY 4-6 HOURS as needed for shortness of breath or wheezing 8.5 March 31, 2024 1:00am June 25, 2024 3:00pm Start: 04-24-2023 End: 06-11-2024 take 2 puff(s) by inhalation every four hours as needed for wheezing Albuterol Sulfate 90 mcg/actuation HFA aerosol inhaler Discontinued 2 INH INHALATION Every 4 hours as needed for shortness of breath or wheezing April 24, 2023 1:00am June 11, 2024 4:54pm FreeTextSi puffs as needed Inhalation every 6 [...] for Shortness Of Breath May 11, 2022 1:00am April 24, 2023 8:54am Start: 08-01-2021 albuterol (PRO VENTIL) (2.5 MG/3ML) [...] (six) hours as needed for wheezing. Active amitriptyline hydrochloride 75 mg oral tablet (13 sources) Tricyclic Antidepressant Start: 02-12-2024 End: 03-31-2024 take 1 tablet by mouth once daily at bedtime Amitriptyline 75 mg tablet Discontinued 75 MG PO Daily at bedtime February 12, 2024 1:00am March 31, 2024 1:32pm Start: 11-14-2023 End: 02-12-2024 take 1 tablet by mouth once daily at bedtime Amitriptyline 50 mg Tablet Discontinued 50 MG PO Daily at bedtime November 14, 2023 12:00am February 12, 2024 4:29pm brexpiprazole 2 mg oral tablet (20 sources) Atypical Antipsychotic Start: 03-31-2021 End: 05-11-2022 take 1 tablet by mouth once daily in the evening Brexpiprazole (Rexulti) 2 mg Tablet Discontinued 2 MG PO Every evening March 31, 2021 1:00am May 11, 2022 1:32am take 1 tablet by claudine th every twenty-four hours Rexulti 1 MG 1 tablet Orally Once a day Active 24 hr buPROPion hydrochloride 300 mg extended release oral tablet (20 sources) Aminoketone Start: 06-11-2024 End: 06-25-2024 take 1 tablet by mouth once daily Bupropion Hcl 300 mg tablet extended release 24 hr Discontinued 300 MG PO Daily June 11, 2024 12:00am June 25, 2024 2:59pm Start: 11-14-2023 End: 03-31-2024 Bupropion Hcl 150 mg Tablet Extended Release 24 Hr Discontinued 450 MG PO Daily 45 November 14, 2023 12:00am March 31, 2024 1:32pm Start: 11-14-2023 take 450 mg by mouth once daily Bupropion Hcl Active 450 MG PO Daily 45 November 14, 2023 12:00am Start: 09-28-2023 End: 11-14-2023 Bupropion Hcl 150 mg tablet extended release 24 hr Discontinued 300 MG PO Daily September 28, 2023 12:00am November 14, 2023 11:17am Start: 09-28-2023 take 150 mg by mouth once daily Bupropion Hcl Active 150 MG PO Daily September 28, 2023 12:00am Start: 09-28-2023 End: 11-14-2023 take 300 mg by mouth once daily Bupropion Hcl Discontinued 300 MG PO Daily September 28, 2023 12:00am November 14, 2023 11:17am calcium chloride 0.0014 meq/ml / potassium chloride [...] SOLN docusate sodium 100 mg oral tablet (15 sources) Start: 04-24-2023 End: 05-08-2023 take 1 tablet by mouth twice daily as needed for constipation Docusate Sodium 100 mg tablet Discontinued 100 MG PO Twice daily as needed for constipation 60 April 24, 2023 1:00am May 08, 2023 4:41pm Start: 11-22-2022 take 1 capsule by mo ut every twenty-four hours Colace 100 MG 1 capsule as needed Orally Once a day for 30 days Nov, Active doxycycline hyclate 100 mg oral capsule (17 sources) Tetracycline-class Drug Start: 08-31-2023 End: 11-08-2023 take 1 capsule by mouth twice daily Doxycycline Hyclate 100 mg capsule Discontinued 100 MG PO Twice daily 14 September 28, 2023 12:00am November 08, 2023 7:45pm Start: 04-15-2023 take 1 capsule by mo uth every twelve hours Doxycycline Monohydrate 100 MG 1 capsule Orally every 12 hrs for 10 days Apr, Active Start: 12-20-2022 take [address] [facility] every twelve hours Doxycycline Monohydrate 100 MG 1 capsule Orally every 12 hrs for 10 days Dec, Active 0.4 ml enoxaparin sodium 100 mg/ml prefilled syringe (16 sources) Low Molecular Weight Heparin Start: 04-02-2021 End: 05-11-2022 Enoxaparin (Lovenox) 40 mg/0.4 mL Syringe Discontinued 40 MG SUBCUT DAILY@1000 0 April 02, 2021 1:00am May 11, 2022 1:32am Ergocalciferol (12 sources) Provitamin D2 Compound Start: 08-04-2020 take 1 tablet by mouth once daily Ergocalciferol 50 MCG (1999 UT) 1 tablet Orally Once a day for 90 days Aug, Not-Taking Start: 08-04-2020 take 1 tablet by claudine once daily Ergocalciferol 50 MCG (1999 UT) 1 tablet Orally Once a day for 90 days Aug, Active Start: 08-04-2020 take 1 tablet by claudine th once daily Ergocalciferol 50 MCG (1999 UT) 1 tablet Orally Once a day for 90 day(s) Aug, Active ertapenem 1000 mg injection (15 sources) Penem Antibacterial Start: 04-02-2021 End: 05-11-2022 take 1 g intravenously every twenty-four hours Ertapenem 1 gram Recon Soln Discontinued 1 GM IV Q24H 0 April 02, 2021 1:00am May 11, 2022 1:32am esomeprazole 40 mg delayed release oral capsule [...] 2022 1:00am May 15, 2022 12:11pm Start: 05-11-2022 End: 05-15-2022 take 80 mg by mouth once daily Fluoxetine Discontinued 80 MG PO Daily May 11, 2022 1:00am May 15, 2022 12:11pm Start: 06-07-2021 take 1 capsule by mo uth once daily fluoxetine (PROZAC) 20 MG capsule Take 20 mg by mouth daily. 06/26/2021 Active Start: 03-31-2021 End: 05-11-2022 take 1 capsule by mouth once daily in the morning Fluoxetine (Prozac) 10 mg Capsule Discontinued 10 MG PO Every morning March 31, 2021 1:00am May 11, 2022 1:31am gabapentin 100 mg oral capsule (20 sources) Anti-epileptic Agent Start: 06-14-2024 End: 06-25-2024 take 1 capsule by mouth three times daily Gabapentin 100 mg Capsule Discontinued 100 MG PO Three times daily 45 June 14, 2024 12:00am June 25, 2024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 3.5-5.1 [facility] Comment on above: Performed By: #### C MP, ETOH, CBC #### [place] [address] Protein [Mass/Vol] 6.7 g/dL Normal 6.4-8.9 [facility] Comment on above: Performed By: #### C MP, ETOH, CBC #### [address] Sodium [Moles/Vol] 135 mmol/L Low 136-145 [facility] Comment on above: Performed By: #### C MP, ETOH, CBC #### [address] Urea nitrogen [Mass/Vol] 20 mg/dL Normal 7-25 [facility] Comment on above: Performed By: #### C MP, ETOH, CBC #### [address] Creatinine [Mass/volume] in Serum or PlasmaOrdered By: Heladio Robbins on 07-06-2024 Creatinine [Mass/Vol] Creatinine [Mass/volume] in Serum or Plasma 0.60-1.20 [facility] Drug Screen,Urineon 07-07-19 25 Amphetamine Screen,Urine Negative Normal Negative [facility] Comment on above: Performed By: #### C MP, ETOH, CBC #### [address] Barbiturate Screen,Urine Negative Normal Negative [facility] Comment on above: Performed By: #### C MP, ETOH, CBC #### [place] [address] [place] Benzodiazepines Screen,Urine Negative Normal Negative [facility] Comment on above: Performed By: #### C MP, ETOH, CBC #### [place] [address] [place] Cannabinoid Screen,Urine Negative Normal Negative [facility] Comment on above: Result Comment: Thes e are unconfirmed results and should not be used for legal purposes. Drug Cut-Off Concentration: AMPH 1000 ng/mL SANDEEP 200 ng/mL JERSON 200 ng/mL COCM 300 ng/mL OP 300 ng/mL PCP 25 ng/mL THC 20 ng/mL PERFORMED BY: [address] [address] PATHOLOGIST COMMERCIAL SALES MANAGER STEPHANIE FAUSTIN M.D. Performed By: #### C MP, ETOH, CBC #### [facility] [address] Cocaine Screen,Urine Negative Normal Negative [facility] Comment on above: Performed By: #### C MP, ETOH, CBC #### [facility] [address] Opiate Screen,Urine Negative Normal Negative [facility] Comment on above: Performed By: #### C MP, ETOH, CBC #### [facility] [address] Phencyclidine Screen,Urine Negative Normal Negative [facility] Comment on above: Performed By: #### C MP, ETOH, CBC #### [facility] [address] Eosinophils Auto (Bld) [#/Vo l]Ordered By: Heladio Robbins on 07-06-2024 Eosinophils (Bld) [#/Vol] Automated eosinophil count 0.0-0.45 [facility] Eosinophils/100 WBC Auto (Bl d)Ordered By: Heladio Robbins on 07-06-2024 Eosinophils/100 WBC (Bld) Automated eosinophil % . [facility] Erythrocyte distribution wid th Auto (RBC) [Ratio]Ordered By: Heladio Robbins on 07-06-2024 Erythrocyte distribution width (RBC) [Ratio] Erythrocyte distribution width [Ratio] by Automated count High 11.9-15.3 [facility] Ethanol [Mass/volume] in Ser um or PlasmaOrdered By: Heladio Robbins on 07-06-2024 Ethanol [Mass/Vol] Ethanol [Mass/volume ] in Serum or Plasma [facility] Ethyl Alcohol Profileon Ethanol [Mass/Vol] 126 mg/dL Normal [facility] Comment on above: Performed By: #### C MP, ETOH, CBC #### [facility] [address] Percent Ethanol 0.126 % Normal [facility] Comment on above: Result Comment: PERF ORMED BY: [place] [address] PATHOLOGIST COMMERCIAL SALES MANAGER STEPHANIE FAUSTIN M.D. Performed By: #### C MP, ETOH, CBC #### [facility] [address] [place], [place] [id number] [facility] Globulin Calc (S) [Mass/Vol] Ordered By: Heladio Robbins on 07-06-2024 Globulin (S) [Mass/Vol] Serum globulin measurement by calculation (mass/volume) [facility] Glucose [Mass/volume] in Ser um or PlasmaOrdered By: Heladio Robbins on 07-06-2024 Glucose [Mass/Vol] Glucose [Mass/volume ] in Serum or Plasma 70-100 [facility] Comment on above: ADA recommended refe rence rangeRandom Glucose Reference Range is dependent on time and content of last meal. Glucose of more than 200 mg/dL in a nonstressed, ambulatory subject supports the diagnosis of Diabetes Mellitus. Glucose [Mass/volume] in Uri ne by Test stripOrdered By: Heladio Robbins on 07-06-2024 Glucose Test strip (U) [Mass/Vol] Glucose [Mass/volume] in Urine by Test strip Normal [facility] HCG ( test) IA.rapi d Ql (U)Ordered By: Heladio Robbins on 07-06-2024 HCG ( test) Ql (U) Urine human chorionic gonadotropin (hCG) detection by immunoassay [facility] HCG,Urineon 07-06-2024 Beta HCG ( test) Ql (U) Negative Normal [facility] Comment on above: Order Comment: Name Collection Type:: Clean-Voided Midstream Result Comment: PERF ORMED BY: [place] [address] PATHOLOGIST COMMERCIAL SALES MANAGER STEPHANIE FAUSTIN M.D. Performed By: #### C MP, ETOH, CBC #### [facility] [address] [place], [place] [id number] [facility] Hematocrit Auto (Bld) [Volum e fraction]Ordered By: Heladio Robbins on 07-06-2024 Hematocrit (Bld) [Volume fraction] Hematocrit [Volume Fraction] of Blood by Automated count 34.0-46.4 [facility] Hemoglobin Test strip Ql (U) Ordered By: Heladio Robbins on 07-06-2024 Hemoglobin Ql (U) Hemoglobin [Presence ] in Urine by Test strip Negative [facility] Hemoglobin [Mass/volume] in BloodOrdered By: Heladio Robbins on 07-06-2024 Hemoglobin (Bld) [Mass/Vol] Hemoglobin [Mass/volume] in Blood Low 11.8-15.4 [facility] Ketones Test strip Ql (U)Ord ered By: Heladio Robbins on 07-06-2024 Ketones Ql (U) Ketones [Presence] i n Urine by Test strip Negative [facility] Leukocyte esterase [Presence ] in Urine by Test stripOrdered By: Heladio Robbins on 07-06-2024 Leukocyte esterase Test strip Ql (U) Leukocyte esterase [Presence] in Urine by Test strip Negative [facility] Leukocytes [#/volume] correc hemalatha for nucleated erythrocytes in Blood by Automated counOrdered By: Heladio Robbins on 07-06-2024 WBC corrected for nucl RBC Auto (Bld) [#/Vol] Leukocytes [#/volume] corrected for nucleated erythrocytes in Blood by Automated coun High 3.8-11.6 [facility] Lymphocytes Auto (Bld) [#/Vo l]Ordered By: Heladio Robbins on 07-06-2024 Lymphocytes (Bld) [#/Vol] Lymphocytes [#/volume] in Blood by Automated count 1.00-4.8 [facility] Lymphocytes/100 WBC Auto (Bl d)Ordered By: Heladio Robbins on 07-06-2024 Lymphocytes/100 WBC (Bld) Lymphocytes/100 leukocytes in Blood by Automated count . [facility] MCH Auto (RBC) [Entitic mass ]Ordered By: Heladio Robbins on 07-06-2024 MCH (RBC) [Entitic mass] MCH [Entitic mass] by Automated count 24.7-34.3 [facility] MCHC Auto (RBC) [Mass/Vol]Or dered By: Heladio Robbins on 07-06-2024 MCHC (RBC) [Mass/Vol] MCHC [Mass/volume] by Automated count 32.0-35.0 [facility] MCV Auto (RBC) [Entitic vol] Ordered By: Heladio Robbins on 07-06-2024 MCV (RBC) [Entitic vol] MCV [Entitic vol ume] by Automated count 80-100 [facility] Monocyte distribution width [Entitic volume] in Blood by AutomatedOrdered By: Heladio Robbins on 07-06-2024 Monocyte distribution width Auto (Bld) [Entitic vol] Monocyte distribution width [Entitic volume] in Blood by Automated 0.00-20.00 [facility] Monocytes Auto (Bld) [#/Vol] Ordered By: Heladio Robbins on 07-06-2024 Monocytes (Bld) [#/Vol] Automated blood monocyte count High 0.0-0.8 [facility] Monocytes/100 WBC Auto (Bld) Ordered By: Heladio Robbins on 07-06-2024 Monocytes/100 WBC (Bld) Automated monocyte % . [facility] Neutrophils Auto (Bld) [#/Vo l]Ordered By: Heladio Robbins on 07-06-2024 Neutrophils (Bld) [#/Vol] Neutrophils [#/volume] in Blood by Automated count High 1.8-7.7 [facility] Neutrophils/100 WBC Auto (Bl d)Ordered By: Heladio Robbins on 07-06-2024 Neutrophils/100 WBC (Bld) Automated neutrophil % . [facility] Nitrite Test strip Ql (U)Ord ered By: Heladio Robbins on 07-06-2024 Nitrite Ql (U) Nitrite [Presence] i n Urine by Test strip Negative [facility] No Panel InformationOrdered By: Heladio Robbins on 07-06-2024 Estimated GFR (CKD-EPI) > 60.0 mL/Min [facility] Creatinine Clearance (Chem 102.22 [facility] Nucleated erythrocytes [Pres ence] in Blood by Automated countOrdered By: Heladio Robbins on 07-06-2024 Nucleated RBC Auto Ql (Bld) Nucleated erythrocytes [Presence] in Blood by Automated count 0-0.5 [facility] Opiates [Presence] in Urine by Screen methodOrdered By: Heladio Robbins on 07-06-2024 Opiates Screen Ql (U) Opiates [Presence] in Urine by Screen method Negative [facility] Phencyclidine Screen Ql (U)O rdered By: Heladio Robbins on 07-06-2024 Phencyclidine Ql (U) Phencyclidine [Presence] in Urine by Screen method Negative [facility] Platelet mean volume Auto (B ld) [Entitic vol]Ordered By: Heladio Robbins on 07-06-2024 Platelet mean volume (Bld) [Entitic vol] Platelet mean volume [Entitic volume] in Blood by Automated count 6.3-10.7 [facility] Platelets Auto (Bld) [#/Vol] Ordered By: Heladio Robbins on 07-06-2024 Platelets (Bld) [#/Vol] Platelets [#/vol ume] in Blood by Automated count 150-450 [facility] Potassium [Moles/volume] in Serum or PlasmaOrdered By: Heladio Robbins on 07-06-2024 Potassium [Moles/Vol] Potassium [Moles/volume] in Serum or Plasma 3.5-5.1 [facility] Protein Test strip (U) [Mass /Vol]Ordered By: Heladio Robbins on 07-06-2024 Protein (U) [Mass/Vol] Protein [Mass/vol ume] in Urine by Test strip Negative [facility] Protein [Mass/volume] in Ser um or PlasmaOrdered By: Heladio Robbins on 07-06-2024 Protein [Mass/Vol] Protein [Mass/volume ] in Serum or Plasma 6.4-8.9 [facility] RBC Auto (Bld) [#/Vol]Ordere d By: Heladio Robbins on 07-06-2024 RBC (Bld) [#/Vol] Erythrocytes [#/volume] in Blood by Automated count 3.60-5.00 [facility] Serum or plasma albumin/glob ulin mass ratioOrdered By: Heladio Robbins on 07-06-2024 Albumin/Globulin [Mass ratio] Serum or plasma albumin/globulin mass ratio [facility] Serum or plasma anion gap de terminationOrdered By: Heladio Robbins on 07-06-2024 Anion gap [Moles/Vol] Serum or plasma an ion gap determination 6.0-15.0 [facility] Sodium [Moles/volume] in Ser um or PlasmaOrdered By: Heladio Robbins on 07-06-2024 Sodium [Moles/Vol] Sodium [Moles/volume ] in Serum or Plasma Low 136-145 [facility] Specific gravity Test strip (U) [Rel density]Ordered By: Heladio Robbins on 07-06-2024 Specific gravity (U) [Rel density] Specific gravity of Urine by Test strip 1.001-1.030 [facility] Urea nitrogen [Mass/volume] in Serum or PlasmaOrdered By: Heladio Robbins on 07-06-2024 Urea nitrogen [Mass/Vol] Urea nitrogen [Mass/volume] in Serum or Plasma 09-27 [facility] Urinalysison 07-06-2024 Appearance (U) Clear Normal Clear [facility] Comment on above: Order Comment: Name Collection Type:: Clean-Voided Midstream Performed By: #### C MP, ETOH, CBC #### [facility] [address] [place] [address] [place] Bilirubin,Urine Negative Normal Negative [facility] Comment on above: Order Comment: Name Collection Type:: Clean-Voided Midstream Performed By: #### C MP, ETOH, CBC #### [facility] [address] [place] [id number] [place] Color (U) Colorless Normal Yellow [facility] Comment on above: Order Comment: Name Collection Type:: Clean-Voided Midstream Performed By: #### C MP, ETOH, CBC #### [facility] [address] [place] [id number] [place] Glucose Ql (U) Normal Normal Normal [facility] Comment on above: Order Comment: Name Collection Type:: Clean-Voided Midstream Performed By: #### C MP, ETOH, CBC #### [place] [id number] [place] Ketones Ql (U) Negative Normal Negative [facility] Comment on above: Order Comment: Name Collection Type:: Clean-Voided Midstream Performed By: #### C MP, ETOH, CBC #### [facility] [address] [place] [id number] [place] Leukocyte esterase Test strip Ql (U) Negative Normal Negative [facility] Comment on above: Order Comment: Name Collection Type:: Clean-Voided Midstream Performed By: #### C MP, ETOH, CBC #### [facility] [address] [place] [id number] [place] Nitrite,Urine Negative Normal Negative [facility] Comment on above: Order Comment: Name Collection Type:: Clean-Voided Midstream Performed By: #### C MP, ETOH, CBC #### [address] Occult Blood,Urine Negative Normal Negative [facility] Comment on above: Order Comment: Name Collection Type:: Clean-Voided Midstream Performed By: #### C MP, ETOH, CBC #### [address] pH (U) 5.5 [pH] Normal 5.0-9.0 [facility] Comment on above: Order Comment: Name Collection Type:: Clean-Voided Midstream Performed By: #### C MP, ETOH, CBC #### [address] Protein,Urine Negative Normal Negative [facility] Comment on above: Order Comment: Name Collection Type:: Clean-Voided Midstream Performed By: #### C MP, ETOH, CBC #### [address] Specificy [place],Urine 1.004 Normal 1.001-1.030 [facility] Comment on above: Order Comment: Name Collection Type:: Clean-Voided Midstream Performed By: #### C MP, ETOH, CBC #### [address] Urobilinogen,Urine Normal Normal Normal [facility] Comment on above: Order Comment: Name Collection Type:: Clean-Voided Midstream Performed By: #### C MP, ETOH, CBC #### [address] Urobilinogen Test strip (U) [Mass/Vol]Ordered By: Heladio Robbins on 07-06-2024 Urobilinogen (U) [Mass/Vol] Urobilinogen [Mass/volume] in Urine by Test strip Normal [facility] WBC Auto (Bld) [#/Vol]Ordere d By: Heladio Robbins on 07-06-2024 WBC (Bld) [#/Vol] Leukocytes [#/volume ] in Blood by Automated count High 3.8-11.6 [facility] pH Test strip (U)Ordered By: Heladio Robbins on 07-06-2024 pH (U) pH of Urine by Test strip 5.0-9.0 [facility] ECG 12 lead ECGon 06-12-2024 ECG 12 lead ECG [facility] [place] [address] [place] [id number] Electrocardiograph Report Signed Patient: Shahla Arias MR#: [id number] : 1980 Acct:[id number] Age/Sex: 44 / F ADM Date: 06/11/24 Loc: Room: [address] [place] [address] Type: ADM IN Attending Dr: Vivek Antoine MD Ordering Provider: Vivek Antoine MD Date of Service: 06/12/2411/28/499 ECG/ECG 12 lead ECG: use of antipsychotics Copies to: Test Reason : Blood Pressure : */* mmHG Vent. Rate : 84 BPM Atrial Rate : 84 BPM P-R Int : 112 ms QRS Dur : 108 ms QT Int : 398 ms P-R-T Axes : 71 33 219 degrees QTcB Int : 470 ms Normal sinus rhythm RSR' or QR pattern in V1 suggests right ventricular conduction delay Prolonged QT Abnormal ECG Confirmed by Kayla Herndon ([id number]) on 06/12/2024 10:51:46 AM Referred By: Electronically Signed By: Kayla Herndon Transcribed By: MUS Signed By Kayla Herndon MD 5 1051 Normal [facility] Alanine aminotransferase [En zymatic activity/volume] in Serum or PlasmaOrdered By: Cole Cast on 06-11-2024 ALT [Catalytic activity/Vol] Alanine aminotransferase [Enzymatic activity/volume] in Serum or Plasma [facility] Albumin [Mass/volume] in Ser um or Plasma by Bromocresol green (BCG) dye binding methoOrdered By: Cole aCst on 06-11-2024 Albumin BCG dye [Mass/Vol] Albumin [Mass/volume] in Serum or Plasma by Bromocresol green (BCG) dye binding metho 3.5-5.7 [facility] Alkaline phosphatase [Enzyma tic activity/volume] in Serum or PlasmaOrdered By: Cole Cast on 06-11-2024 ALP [Catalytic activity/Vol] Alkaline phosphatase [Enzymatic activity/volume] in Serum or Plasma 34-104 [facility] Amphetamine Screen Ql (U)Ord ered By: Cole Cast on 06-11-2024 Amphetamines Ql (U) Amphetamines screen Negativ e [facility] Appearance of UrineOrdered B y: Cole Cast on 06-11-2024 Appearance (U) Urine appearance Clear [facility] Aspartate aminotransferase [ Enzymatic activity/volume] in Serum or PlasmaOrdered By: Cole Cast on 06-11-2024 AST [Catalytic activity/Vol] Aspartate aminotransferase [Enzymatic activity/volume] in Serum or Plasma 13-39 [facility] Bacteria [Presence] in Urine by AutomatedOrdered By: Cole Cast on 06-11-2024 Bacteria Auto Ql (U) Bacteria [Presence] in Urine by Automated None Seen [facility] Barbiturates [Presence] in U rine by Screen methodOrdered By: Cole Cast on 06-11-2024 Barbiturates Screen Ql (U) Barbiturates [Presence] in Urine by Screen method Negative [facility] Basophils Auto (Bld) [#/Vol] Ordered By: Cole Cast on 06-11-2024 Basophils (Bld) [#/Vol] Automated basoph il count 0.0-0.2 [facility] Basophils/100 WBC Auto (Bld) Ordered By: Cole Cast on 06-11-2024 Basophils/100 WBC (Bld) Automated basophil % . [facility] Benzodiazepines Screen Ql (U )Ordered By: Cole Cast on 06-11-2024 Benzodiazepines Ql (U) Benzodiazepines [Presence] in Urine by Screen method Negative [facility] Benzoylecgonine [Presence] i n Urine by Screen methodOrdered By: Cole Cast on 06-11-2024 Benzoylecgonine Screen Ql (U) Benzoylecgonine [Presence] in Urine by Screen method Negative [facility] Bilirubin Test strip Ql (U)O rdered By: Cole Cast on 06-11-2024 Bilirubin Ql (U) Bilirubin.total [Presence] in Urine by Test strip Negative [facility] Bilirubin.total [Mass/volume ] in Serum or PlasmaOrdered By: Cole Cast on 06-11-2024 Bilirubin [Mass/Vol] Bilirubin.total [Mass/volume] in Serum or Plasma 0.3-1.0 [facility] Calcium [Mass/volume] in Ser um or PlasmaOrdered By: Cole Cast on 06-11-2024 Calcium [Mass/Vol] Calcium [Mass/volume ] in Serum or Plasma 8.6-10.3 [facility] Cannabinoids [Presence] in U rine by Screen methodOrdered By: Cole Cast on 06-11-2024 Cannabinoids Screen Ql (U) Cannabinoids [Presence] in Urine by Screen method Negative [facility] Comment on above: These are unconfirme d results and should not be used for legal purposes. Drug Cut-Off Concentration: AMPH 1000 ng/mL SANDEEP 200 ng/mL JERSON 200 ng/mL COCM 300 ng/mL OP 300 ng/mL PCP 25 ng/mL THC 20 ng/mL Carbon dioxide, total [Moles /volume] in Serum or PlasmaOrdered By: Cole Cast on 06-11-2024 CO2 [Moles/Vol] Carbon dioxide, tota l [Moles/volume] in Serum or Plasma 21.0-31.0 [facility] Chloride [Moles/volume] in S monse or PlasmaOrdered By: Cole Cast on 06-11-2024 Chloride [Moles/Vol] Chloride [Moles/volume] in Serum or Plasma 98-107 [facility] Cholesterol [Mass/volume] in Serum or PlasmaOrdered By: Vivek Antoine on 06-11-2024 Cholesterol [Mass/Vol] Cholesterol [Mass/volume] in Serum or Plasma Low 140-200 [facility] Comment on above: Chol less than 200 m g/dl low riskChol 201-239 mg/dl borderline riskChol 240 mg/dl and greater high risk Cholesterol in HDL [Mass/vol ume] in Serum or PlasmaOrdered By: Vivek Antoine on 06-11-2024 Cholesterol in HDL [Mass/Vol] Serum or plasma high density lipoprotein (HDL) cholesterol measurement 23-92 [facility] Comment on above: HDL CHOL ATP-III CLA SSIFICATION Cardiovascular RiskHDL > or equal to 60 mg/dL LOWHDL < 40 mg/dL HIGH Cholesterol in LDL Calc [Mas s/Vol]Ordered By: Vivek Antoine on 06-11-2024 Cholesterol in LDL [Mass/Vol] Cholesterol in LDL [Mass/volume] in Serum or Plasma by calculation 0-100 [facility] Comment on above: LDL ATP III CLASSIFI CATIONLDL less than 100 mg/dL OptimalLDL 100-129 mg/dL Near or above optimalLDL 130-159 mg/dL Borderline highLDL 160-189 mg/dL HighLDL greater than 189 mg/dL Very high Cholesterol in VLDL Calc [Ma ss/Vol]Ordered By: Vivek Antoine on 06-11-2024 Cholesterol in VLDL [Mass/Vol] Cholesterol in VLDL [Mass/volume] in Serum or Plasma by calculation [facility] Color Auto (U)Ordered By: Kelton Cast on 06-11-2024 Color (U) Color of Urine by Auto Yellow Fi [facility] Complete Blood Count Auto Di ffon 06-11-2024 Basophils (Bld) [#/Vol] 0.1 10*3/uL Normal 0.0-0.2 [facility] Comment on above: Result Comment: PERF ORMED BY: [place] [address] PATHOLOGIST [employer] SALES MANAGER STEPHANIE FAUSTIN M.D. Performed By: #### C MP, ETOH, CBC #### [facility] [address] [place] [address] [place] Basophils/100 WBC (Bld) 1.1 % Normal . T becky [facility] Comment on above: Performed By: #### C MP, ETOH, CBC #### [facility] [address] [place] [address] [place] Eosinophils (Bld) [#/Vol] 0.1 10*3/uL Normal 0.0-0.45 [facility] Comment on above: Performed By: #### C MP, ETOH, CBC #### [facility] [address] [place] [address] [place] Eosinophils/100 WBC (Bld) 0.9 % Normal . [facility] Comment on above: Performed By: #### C MP, ETOH, CBC #### [address] Erythrocyte distribution width (RBC) [Ratio] 16.0 % High 11.9-15.3 [facility] Comment on above: Performed By: #### C MP, ETOH, CBC #### [address] Hematocrit (Bld) [Volume fraction] 37.1 % Normal 34.0-46.4 [facility] Comment on above: Performed By: #### C MP, ETOH, CBC #### [address] Hemoglobin (Bld) [Mass/Vol] 12.3 g/dL Normal 11.8-15.4 [facility] Comment on above: Performed By: #### C MP, ETOH, CBC #### [address] Lymphocytes (Bld) [#/Vol] 2.6 10*3/uL Normal 1.00-4.8 [facility] Comment on above: Performed By: #### C MP, ETOH, CBC #### [address] Lymphocytes/100 WBC (Bld) 25.4 % Normal . [facility] Comment on above: Performed By: #### C MP, ETOH, CBC #### [address] MCH (RBC) [Entitic mass] 29.5 pg Normal 24.7-34.3 [facility] Comment on above: Performed By: #### C MP, ETOH, CBC #### [address] MCV (RBC) [Entitic vol] 88.8 fL Normal 80-100 T [facility] Comment on above: Performed By: #### C MP, ETOH, CBC #### [address] Mean Corpuscular HGB Conc 33.2 g/dL Normal 32.0-35.0 [facility] Comment on above: Performed By: #### C MP, ETOH, CBC #### [address] Monocytes (Bld) [#/Vol] 0.7 10*3/uL Normal 0.0-0.8 [facility] Comment on above: Performed By: #### C MP, ETOH, CBC #### [address] Monocytes/100 WBC (Bld) 18.12 % Normal 0.00-20.00 [facility] Comment on above: Performed By: #### C MP, ETOH, CBC #### [address] Monocytes/100 WBC (Bld) 7.1 % Normal . [facility] Comment on above: Performed By: #### C MP, ETOH, CBC #### [address] Neutrophils (Bld) [#/Vol] 6.7 10*3/uL Normal 1.8-7.7 [facility] Comment on above: Performed By: #### C MP, ETOH, CBC #### [address] Neutrophils/100 WBC (Bld) 65.5 % Normal . [facility] Comment on above: Performed By: #### C MP, ETOH, CBC #### [address] NRBC% 0.1 /100{WBC} Normal 0-0.5 [facility] Comment on above: Performed By: #### C MP, ETOH, CBC #### [place] [address] [place] Platelet mean volume (Bld) [Entitic vol] 7.7 fL Normal 6.3-10.7 [facility] Comment on above: Performed By: #### C MP, ETOH, CBC #### [address] Platelets (Bld) [#/Vol] 311 10*3/uL Normal 150-450 [facility] Comment on above: Performed By: #### C MP, ETOH, CBC #### [address] RBC (Bld) [#/Vol] 4.18 10*6/uL Normal 3.60-5.00 [facility] Comment on above: Performed By: #### C MP, ETOH, CBC #### [address] WBC (Bld) [#/Vol] 10.3 10*3/uL Normal 3.8-11.6 [facility] Comment on above: Performed By: #### C MP, ETOH, CBC #### [address] Comprehensive Metabolic Pane seng 06-11-2024 Albumin [Mass/Vol] 4.0 g/dL Normal 3.5-5.7 [facility] Comment on above: Performed By: #### C MP, ETOH, CBC #### [address] Albumin/Globulin [Mass ratio] 1.1 {ratio} Normal [facility] Comment on above: Performed By: #### C MP, ETOH, CBC #### [address] ALP [Catalytic activity/Vol] 84 U/L Normal 34-104 [facility] Comment on above: Performed By: #### C MP, ETOH, CBC #### [address] ALT [Catalytic activity/Vol] 22 U/L Normal 7-52 [facility] Comment on above: Performed By: #### C MP, ETOH, CBC #### [address] Anion gap [Moles/Vol] 10.9 mmol/L Normal 6.0-15.0 [facility] Comment on above: Performed By: #### C MP, ETOH, CBC #### [address] AST [Catalytic activity/Vol] 20 U/L Normal 13-39 [facility] Comment on above: Performed By: #### C MP, ETOH, CBC #### [facility] [address] Bilirubin [Mass/Vol] 0.4 mg/dL Normal 0.3-1.0 [facility] Comment on above: Performed By: #### C MP, ETOH, CBC #### [address] Calcium [Mass/Vol] 9.8 mg/dL Normal 8.6-10.3 [facility] Comment on above: Performed By: #### C MP, ETOH, CBC #### [address] Chloride [Moles/Vol] 103 mmol/L Normal 98-107 [facility] Comment on above: Performed By: #### C MP, ETOH, CBC #### [place] [address] [place] CO2 [Moles/Vol] 29.2 mmol/L Normal 21.0-31.0 [facility] Comment on above: Performed By: #### C MP, ETOH, CBC #### [address] Creatinine [Mass/Vol] 1.14 mg/dL Normal 0.60-1.20 [facility] Comment on above: Performed By: #### C MP, ETOH, CBC #### [place] [address] [place] Creatinine Clr Calc Pharmacy 76.30 Normal [facility] Comment on above: Result Comment: PERF ORMED BY: [place] [address] PATHOLOGIST [employer] STEPHANIE FAUSTIN M.D. Performed By: #### C MP, ETOH, CBC #### [place] [address] [place] GFR/1.73 sq M.predicted MDRD (S/P/Bld) [Vol rate/Area] mL/min/{1.73_m2} Normal [facility] Comment on above: Performed By: #### C MP, ETOH, CBC #### [address] Globulin (S) [Mass/Vol] 3.5 g/dL Normal T he [facility] Comment on above: Performed By: #### C MP, ETOH, CBC #### [address] Glucose [Mass/Vol] 105 mg/dL High 70-100 [facility] Comment on above: Result Comment: [facility] Glucose Reference Range is dependent on time and content of last meal. Glucose of more than 200 mg/dL in a nonstressed, ambulatory subject supports the diagnosis of Diabetes Mellitus. ADA recommended reference range Performed By: #### C MP, ETOH, CBC #### [address] Potassium [Moles/Vol] 4.1 mmol/L Normal 3.5-5.1 [facility] Comment on above: Performed By: #### C MP, ETOH, CBC #### [address] Protein [Mass/Vol] 7.5 g/dL Normal 6.4-8.9 [facility] Comment on above: Performed By: #### C MP, ETOH, CBC #### [place] [address] [place] Sodium [Moles/Vol] 139 mmol/L Normal 136-145 [facility] Comment on above: Performed By: #### C MP, ETOH, CBC #### [address] Urea nitrogen [Mass/Vol] 18 mg/dL Normal 7-25 [facility] Comment on above: Performed By: #### C MP, ETOH, CBC #### [place] [address] [place] Creatinine [Mass/volume] in Serum or PlasmaOrdered By: Cole Cast on 06-11-2024 Creatinine [Mass/Vol] Creatinine [Mass/volume] in Serum or Plasma 0.60-1.20 [facility] Dipstick and Microscopicon 0 06-11-2024 Appearance (U) Clear Normal Clear [facility] Comment on above: Order Comment: Name Collection Type:: Clean-Voided Midstream Performed By: #### C MP, ETOH, CBC #### [facility] [address] Bacteria,Urine Rare Normal None Seen [facility] Comment on above: Order Comment: Name Collection Type:: Clean-Voided Midstream Performed By: #### C MP, ETOH, CBC #### [place] [address] [place] Bilirubin,Urine Negative Normal Negative [facility] Comment on above: Order Comment: Name Collection Type:: Clean-Voided Midstream Performed By: #### C MP, ETOH, CBC #### [address] Color (U) Yellow Normal Yellow [facility] Comment on above: Order Comment: Name Collection Type:: Clean-Voided Midstream Performed By: #### C MP, ETOH, CBC #### [address] Glucose Ql (U) Normal Normal Normal [facility] Comment on above: Order Comment: Name Collection Type:: Clean-Voided Midstream Performed By: #### C MP, ETOH, CBC #### [place] [address] [place] Hyaline Casts,Urine 20-49 High 0-8 [facility] Comment on above: Order Comment: Name Collection Type:: Clean-Voided Midstream Performed By: #### C MP, ETOH, CBC #### [address] Ketones Ql (U) Trace High Negative [facility] Comment on above: Order Comment: Name Collection Type:: Clean-Voided Midstream Performed By: #### C MP, ETOH, CBC #### [address] Leukocyte esterase Test strip Ql (U) 3+ High Negative [facility] Comment on above: Order Comment: Name Collection Type:: Clean-Voided Midstream Performed By: #### C MP, ETOH, CBC #### [place] [address] [place] Mucus,Urine 1+ Critically abnormal [facility] Comment on above: Order Comment: Name Collection Type:: Clean-Voided Midstream Performed By: #### C MP, ETOH, CBC #### [place] [address] [place] Nitrite,Urine Negative Normal Negative [facility] Comment on above: Order Comment: Name Collection Type:: Clean-Voided Midstream Performed By: #### C MP, ETOH, CBC #### [address] Occult Blood,Urine Negative Normal Negative [facility] Comment on above: Order Comment: Name Collection Type:: Clean-Voided Midstream Performed By: #### C MP, ETOH, CBC #### [place] [address] [place] pH (U) 5.5 [pH] Normal 5.0-9.0 [facility] Comment on above: Order Comment: Name Collection Type:: Clean-Voided Midstream Performed By: #### C MP, ETOH, CBC #### [place] [address] [place] Protein (U) [Mass/Vol] 20 mg/dL High Negative [facility] Comment on above: Order Comment: Name Collection Type:: Clean-Voided Midstream Performed By: #### C MP, ETOH, CBC #### [place] [address] [place] RBC,Urine 3-4 Normal 0-4 [facility] Comment on above: Order Comment: Name Collection Type:: Clean-Voided Midstream Performed By: #### C MP, ETOH, CBC #### [place] [address] [place] Specificy [place],Urine 1.025 Normal 1.001-1.030 [facility] Comment on above: Order Comment: Name Collection Type:: Clean-Voided Midstream Performed By: #### C MP, ETOH, CBC #### [address] Squamous Epithelial Cell,Urine 5-9 High 0-2 [facility] Comment on above: Order Comment: Name Collection Type:: Clean-Voided Midstream Performed By: #### C MP, ETOH, CBC #### [address] Urobilinogen,Urine 3 mg/dL High Normal [facility] Comment on above: Order Comment: Name Collection Type:: Clean-Voided Midstream Performed By: #### C MP, ETOH, CBC #### [address] WBC,Urine 10-19 High 0-4 [facility] Comment on above: Order Comment: Name Collection Type:: Clean-Voided Midstream Performed By: #### C MP, ETOH, CBC #### [address] Drug Screen,Urineon 06-12-19 25 Amphetamine Screen,Urine Negative Normal Negative [facility] Comment on above: Performed By: #### C MP, ETOH, CBC #### [address] Barbiturate Screen,Urine Negative Normal Negative [facility] Comment on above: Performed By: #### C MP, ETOH, CBC #### [place] [address] [place] Benzodiazepines Screen,Urine Negative Normal Negative [facility] Comment on above: Performed By: #### C MP, ETOH, CBC #### [place] [address] [place] Cannabinoid Screen,Urine Negative Normal Negative [facility] Comment on above: Result Comment: Thes e are unconfirmed results and should not be used for legal purposes. Drug Cut-Off Concentration: AMPH 1000 ng/mL SANDEEP 200 ng/mL JERSON 200 ng/mL COCM 300 ng/mL OP 300 ng/mL PCP 25 ng/mL THC 20 ng/mL PERFORMED BY: [place] [address] PATHOLOGIST [employer]NAGER STEPHANIE FAUSTIN M.D. Performed By: #### C MP, ETOH, CBC #### [address] Cocaine Screen,Urine Negative Normal Negative [facility] Comment on above: Performed By: #### C MP, ETOH, CBC #### [address] Opiate Screen,Urine Negative Normal Negative [facility] Comment on above: Performed By: #### C MP, ETOH, CBC #### [address] Phencyclidine Screen,Urine Negative Normal Negative [facility] Comment on above: Performed By: #### C MP, ETOH, CBC #### [facility] [address] [place] [address] Eosinophils Auto (Bld) [#/Vo l]Ordered By: Cole Cast on 06-11-2024 Eosinophils (Bld) [#/Vol] Automated eosinophil count 0.0-0.45 [facility] Eosinophils/100 WBC Auto (Bl d)Ordered By: Cole Cast on 06-11-2024 Eosinophils/100 WBC (Bld) Automated eosinophil % . [facility] Epithelial cells.squamous [# /area] in Urine sediment by Automated countOrdered By: Cole Cast on 06-11-2024 Epithelial cells.squamous Auto (Urine sed) [#/Area] Epithelial cells.squamous [#/area] in Urine sediment by Automated count High 0-2 [facility] Erythrocyte distribution wid th Auto (RBC) [Ratio]Ordered By: Cole Cast on 06-11-2024 Erythrocyte distribution width (RBC) [Ratio] Erythrocyte distribution width [Ratio] by Automated count High 11.9-15.3 [facility] Erythrocytes [#/area] in Uri ne sediment by Automated countOrdered By: Cole Cast on 06-11-2024 RBC Auto (Urine sed) [#/Area] Erythrocytes [#/area] in Urine sediment by Automated count 0-4 [facility] Ethanol [Mass/volume] in Ser um or PlasmaOrdered By: Cole Cast on 06-11-2024 Ethanol [Mass/Vol] Ethanol [Mass/volume ] in Serum or Plasma [facility] Comment on above: Test not performed Ethyl Alcohol Profileon Ethanol [Mass/Vol] mg/dL Normal [facility] Comment on above: Performed By: #### C MP, ETOH, CBC #### [facility] [address] Percent Ethanol Not performed Normal [facility] Comment on above: Result Comment: PERF ORMED BY: [place] [address] PATHOLOGIST [employer] SALES MANAGER STEPHANIE FAUSTIN M.D. Performed By: #### C MP, ETOH, CBC #### [facility] [address] Globulin Calc (S) [Mass/Vol] Ordered By: Cole Cast on 06-11-2024 Globulin (S) [Mass/Vol] Serum globulin measurement by calculation (mass/volume) [facility] Glucose [Mass/volume] in Ser um or PlasmaOrdered By: Cole Cast on 06-11-2024 Glucose [Mass/Vol] Glucose [Mass/volume ] in Serum or Plasma High 70-100 [facility] Comment on above: ADA recommended refe rence rangeRandom Glucose Reference Range is dependent on time and content of last meal. Glucose of more than 200 mg/dL in a nonstressed, ambulatory subject supports the diagnosis of Diabetes Mellitus. Glucose [Mass/volume] in Uri ne by Test stripOrdered By: Cole Cast on 06-11-2024 Glucose Test strip (U) [Mass/Vol] Glucose [Mass/volume] in Urine by Test strip Normal [facility] HCG ( test) IA.rapi d Ql (U)Ordered By: Cole Cast on 06-11-2024 HCG ( test) Ql (U) Urine human chorionic gonadotropin (hCG) detection by immunoassay [facility] HCG,Urineon 06-11-2024 Beta HCG ( test) Ql (U) Negative Normal [facility] Comment on above: Order Comment: Name Collection Type:: Clean-Voided Midstream Result Comment: PERF ORMED BY: [place] [address] PATHOLOGIST [employer]ER[employer] SALES MANAGER STEPHANIE FAUSTIN M.D. Performed By: #### C MP, ETOH, CBC #### [address] Hematocrit Auto (Bld) [Volum e fraction]Ordered By: Cole Cast on 06-11-2024 Hematocrit (Bld) [Volume fraction] Hematocrit [Volume Fraction] of Blood by Automated count 34.0-46.4 [facility] Hemoglobin Test strip Ql (U) Ordered By: Cole Cast on 06-11-2024 Hemoglobin Ql (U) Hemoglobin [Presence ] in Urine by Test strip Negative [facility] Hemoglobin [Mass/volume] in BloodOrdered By: Cole Cast on 06-11-2024 Hemoglobin (Bld) [Mass/Vol] Hemoglobin [Mass/volume] in Blood 11.8-15.4 [facility] Hyaline casts [#/area] in Ur ine sediment by Automated countOrdered By: Cole Cast on 06-11-2024 Hyaline casts Auto (Urine sed) [#/Area] Hyaline casts [#/area] in Urine sediment by Automated count High 0-8 [facility] Ketones Test strip Ql (U)Ord ered By: Cole Cast on 06-11-2024 Ketones Ql (U) Ketones [Presence] i n Urine by Test strip High Negative [facility] Leukocyte esterase [Presence ] in Urine by Test stripOrdered By: Cole Cast on 06-11-2024 Leukocyte esterase Test strip Ql (U) Leukocyte esterase [Presence] in Urine by Test strip High Negative [facility] Leukocytes [#/area] in Urine sediment by Automated countOrdered By: Cole Cast on 06-11-2024 WBC Auto (Urine sed) [#/Area] Leukocytes [#/area] in Urine sediment by Automated count High 0-4 [facility] Leukocytes [#/volume] correc hemalatha for nucleated erythrocytes in Blood by Automated counOrdered By: Cole Cast on 06-11-2024 WBC corrected for nucl RBC Auto (Bld) [#/Vol] Leukocytes [#/volume] corrected for nucleated erythrocytes in Blood by Automated coun 3.8-11.6 [facility] Lipid Panelon 06-11-2024 Cholesterol [Mass/Vol] 132 mg/dL Low 140-200 [facility] Comment on above: Order Comment: KAYLIE Erwin Comment use from ER Result Comment: Chol less than 200 mg/dl low risk Chol 201-239 mg/dl borderline risk Chol 240 mg/dl and greater high risk Performed By: #### C MP, ETOH, CBC #### [facility] [address] [place] [address] [place] Cholesterol in HDL [Mass/Vol] 46 mg/dL Normal 23-92 [facility] Comment on above: Order Comment: KAYLIE Erwin Comment use from ER Result Comment: HDL CHOL ATP-III CLASSIFICATION Cardiovascular Risk HDL > or equal to 60 mg/dL LOW HDL < 40 mg/dL HIGH Performed By: #### C MP, ETOH, CBC #### [facility] [address] [place] [address] [place] Cholesterol.total/[place] sterol in HDL [Mass ratio] 2.9 {ratio} Normal <5.0 [facility] Comment on above: Order Comment: KAYLIE Erwin Comment use from ER Performed By: #### C MP, ETOH, CBC #### [facility] [address] [place] [address] [place] LDL Cholesterol,Calculated 61 mg/dL Normal 0-100 [facility] Comment on above: Order Comment: KAYLIE Erwin Comment use from ER Result Comment: LDL ATP III CLASSIFICATION LDL less than 100 mg/dL Optimal LDL 100-129 mg/dL Near or above optimal LDL 130-159 mg/dL Borderline high LDL 160-189 mg/dL High LDL greater than 189 mg/dL Very high Performed By: #### C MP, ETOH, CBC #### [facility] [address] [place] [address] [place] Triglyceride w/Reflex 124 mg/dL Normal 0-149 [facility] Comment on above: Order Comment: KAYLIE Erwin Comment use from ER Result Comment: TRIG ATP III CLASSIFICATION TRIG less than 150 mg/dL Normal TRIG 150-199 mg/dL Borderline high TRIG 200-500 mg/dL High TRIG greater than 500 mg/dL Very high Standard traceable to the Center for Disease Conrtrol and Prevention (CDC) test method. Performed By: #### C MP, ETOH, CBC #### [facility] [address] VLDL CHOLESTEROL 24 mg/dL Normal [facility] Comment on above: Order Comment: KAYLIE Erwin Comment use from ER Performed By: #### C MP, ETOH, CBC #### [facility] [address] Lymphocytes Auto (Bld) [#/Vo l]Ordered By: Cole Cast on 06-11-2024 Lymphocytes (Bld) [#/Vol] Lymphocytes [#/volume] in Blood by Automated count 1.00-4.8 [facility] Lymphocytes/100 WBC Auto (Bl d)Ordered By: Cole Cast on 06-11-2024 Lymphocytes/100 WBC (Bld) Lymphocytes/100 leukocytes in Blood by Automated count . [facility] MCH Auto (RBC) [Entitic mass ]Ordered By: Cole Cast on 06-11-2024 MCH (RBC) [Entitic mass] MCH [Entitic mass] by Automated count 24.7-34.3 [facility] MCHC Auto (RBC) [Mass/Vol]Or dered By: Cole Cast on 06-11-2024 MCHC (RBC) [Mass/Vol] MCHC [Mass/volume] by Automated count 32.0-35.0 [facility] MCV Auto (RBC) [Entitic vol] Ordered By: Cole Cast on 06-11-2024 MCV (RBC) [Entitic vol] MCV [Entitic vol ume] by Automated count 80-100 [facility] Monocyte distribution width [Entitic volume] in Blood by AutomatedOrdered By: Cole Cast on 06-11-2024 Monocyte distribution width Auto (Bld) [Entitic vol] Monocyte distribution width [Entitic volume] in Blood by Automated 0.00-20.00 [facility] Monocytes Auto (Bld) [#/Vol] Ordered By: Cole Cast on 06-11-2024 Monocytes (Bld) [#/Vol] Automated blood monocyte count 0.0-0.8 [facility] Monocytes/100 WBC Auto (Bld) Ordered By: Cole Cast on 06-11-2024 Monocytes/100 WBC (Bld) Automated monocyte % . [facility] Mucus [Presence] in Urine by AutomatedOrdered By: Cole Cast on 06-11-2024 Mucus Auto Ql (U) Mucus [Presence] in Urine by Automated Abnormal [facility] Neutrophils Auto (Bld) [#/Vo l]Ordered By: Cole Cast on 06-11-2024 Neutrophils (Bld) [#/Vol] Neutrophils [#/volume] in Blood by Automated count 1.8-7.7 [facility] Neutrophils/100 WBC Auto (Bl d)Ordered By: Cole Cast on 06-11-2024 Neutrophils/100 WBC (Bld) Automated neutrophil % . [facility] Nitrite Test strip Ql (U)Ord ered By: oCle Cast on 06-11-2024 Nitrite Ql (U) Nitrite [Presence] i n Urine by Test strip Negative [facility] No Panel InformationOrdered By: Cole Cast on 06-11-2024 Estimated GFR (CKD-EPI) > 60.0 mL/Min [facility] Creatinine Clearance (Chem 76.30 [facility] Nucleated erythrocytes [Pres ence] in Blood by Automated countOrdered By: Cole Cast on 06-11-2024 Nucleated RBC Auto Ql (Bld) Nucleated erythrocytes [Presence] in Blood by Automated count 0-0.5 [facility] Office Visiton 06-11-2024 Follow-up visit [id number] Shahla Arias 1980 F Date Provider Department Center 06/11/2024 [facility]OTT Family History Problem Relation Age of Onset Hypertension Mother Cancer Mother Stroke Mother Family Status - Relation Status Age at Mother Father Alive Sister Alive Brother Alive Level [place] Service:51078 [place] OFFICE[facility]PAT[facility] NEW MODERATE MDM 45 MINUTES Normal [facility] Opiates [Presence] in Urine by Screen methodOrdered By: Cole Cast on 06-11-2024 Opiates Screen Ql (U) Opiates [Presence] in Urine by Screen method Negative [facility] Phencyclidine Screen Ql (U)O rdered By: Cole Cast on 06-11-2024 Phencyclidine Ql (U) Phencyclidine [Presence] in Urine by Screen method Negative [facility] Platelet mean volume Auto (B ld) [Entitic vol]Ordered By: Cole Cast on 06-11-2024 Platelet mean volume (Bld) [Entitic vol] Platelet mean volume [Entitic volume] in Blood by Automated count 6.3-10.7 [facility] Platelets Auto (Bld) [#/Vol] Ordered By: Cole Cast on 06-11-2024 Platelets (Bld) [#/Vol] Platelets [#/vol ume] in Blood by Automated count 150-450 [facility] Potassium [Moles/volume] in Serum or PlasmaOrdered By: Cole Cast on 06-11-2024 Potassium [Moles/Vol] Potassium [Moles/volume] in Serum or Plasma 3.5-5.1 [facility] Protein Test strip (U) [Mass /Vol]Ordered By: Cole Cast on 06-11-2024 Protein (U) [Mass/Vol] Protein [Mass/vol ume] in Urine by Test strip High Negative [facility] Protein [Mass/volume] in Ser um or PlasmaOrdered By: Cole Cast on 06-11-2024 Protein [Mass/Vol] Protein [Mass/volume ] in Serum or Plasma 6.4-8.9 [facility] RBC Auto (Bld) [#/Vol]Ordere d By: Cole Cast on 06-11-2024 RBC (Bld) [#/Vol] Erythrocytes [#/volume] in Blood by Automated count 3.60-5.00 [facility] Serum or plasma albumin/glob ulin mass ratioOrdered By: Cole Cast on 06-11-2024 Albumin/Globulin [Mass ratio] Serum or plasma albumin/globulin mass ratio [facility] Serum or plasma anion gap de terminationOrdered By: Cole Cast on 06-11-2024 Anion gap [Moles/Vol] Serum or plasma an ion gap determination 6.0-15.0 [facility] Serum or plasma total choles terol/high density lipoprotein (HDL) cholesterol mass ratOrdered By: Vivek Antoine on 06-11-2024 Cholesterol.total/Polina sterol in HDL [Mass ratio] Serum or plasma total cholesterol/high density lipoprotein (HDL) cholesterol mass rat <5.0 [facility] Sodium [Moles/volume] in Ser um or PlasmaOrdered By: Cole Cast on 06-11-2024 Sodium [Moles/Vol] Sodium [Moles/volume ] in Serum or Plasma 136-145 [facility] Specific gravity Test strip (U) [Rel density]Ordered By: Cole Cast on 06-11-2024 Specific gravity (U) [Rel density] Specific gravity of Urine by Test strip 1.001-1.030 [facility] Thyroid Stim Hormone w/Rflxo n 06-11-2024 Thyroid Stim Hormone w/Rflx 3.58 u[iU]/mL Normal 0.45-5.33 [facility] Comment on above: Order Comment: KAYLIE Ewrin Comment use from ER Performed By: #### C MP, ETOH, CBC #### [address] Thyrotropin [Units/volume] i n Serum or PlasmaOrdered By: Vivek Antoine on 06-11-2024 TSH Qn Thyrotropin [Units/volume] in Serum or Plasma 0.45-5.33 [facility] Triglyceride [Mass/volume] i n Serum or PlasmaOrdered By: Vivek Antoine on 06-11-2024 Triglyceride [Mass/Vol] Triglyceride [Mass/volume] in Serum or Plasma 0-149 [facility] Comment on above: TRIG ATP III CLASSIF ICATIONTRIG less than 150 mg/dL NormalTRIG 150-199 mg/dL Borderline highTRIG 200-500 mg/dL High TRIG greater than 500 mg/dL Very highStandard traceable to the Center for Disease Conrtrol and Prevention (CDC) test method. Urea nitrogen [Mass/volume] in Serum or PlasmaOrdered By: Cole Cast on 06-11-2024 Urea nitrogen [Mass/Vol] Urea nitrogen [Mass/volume] in Serum or Plasma 7-25 [facility] Urine Cultureon 06-11-2024 Bacteria identified Cx Nom (U) <9,000 colonies/ml mixed bacterial skin contaminants 2 Days PERFORMED BY: [address] [address] PATHOLOGIST COMMERCIAL SALES MANAGER STEPHANIE FAUSTIN M.D. Normal [facility] Comment on above: Performed By: #### C MP, ETOH, CBC #### [facility] [address] [place] [id number] [facility] Urine cultureOrdered By: Claus Cast on 06-11-2024 Bacteria identified Cx Nom (U) Urine culture [facility] Urobilinogen Test strip (U) [Mass/Vol]Ordered By: Cole Cast on 06-11-2024 Urobilinogen (U) [Mass/Vol] Urobilinogen [Mass/volume] in Urine by Test strip High Normal [facility] Vitamin D 25 Hydroxy Totalon 06-11-2024 Vitamin D 25 Hydroxy Total 47.1 ng/mL Normal 30-100 [facility] Comment on above: Order Comment: FASTI NG Y Comment use from ER Result Comment: JAYSON MIN D STATUS 25(OH)VITAMIN D RANGE (ng/mL) Deficient <20 Insufficient 20 to <30 Sufficient 30 to 100 Reference: Braeden MF,Marsha NC, Ez MULTANI, et al. Evaluation,treatment, and prevention of vitamin D deficiency; an Endocrine Society clinical practice guideline. JCEM. 2010; 96(7):1911-30. PERFORMED BY: [facility] [address] [place] [address] PATHOLOGIST COMMERCIAL SALES MANAGER STEPHANIE FAUSTIN M.D. Performed By: #### C MP, ETOH, CBC #### [facility] [address] [place] [address] [facility] Vitamin D+Metabolites [Mass/ volume] in Serum or PlasmaOrdered By: Vivek Antoine on 06-11-2024 Vitamin D+Metabolites [Mass/Vol] Vitamin D+Metabolites [Mass/volume] in Serum or Plasma 30-100 [facility] Comment on above: VITAMIN D STATUS 25( [place])VITAMIN D RANGE (ng/mL) Deficient <20 Insufficient 20 to <30Sufficient 30 to 100Reference: Braeden BARRETT,Marsha PRIEST, Ez MULTANI, et al. Evaluation,treatment, and prevention of vitamin D deficiency; an Endocrine Society clinical practice guideline. JCEM. 2010; 96(7):1911-30. WBC Auto (Bld) [#/Vol]Ordere d By: Cole Cast on 06-11-2024 WBC (Bld) [#/Vol] Leukocytes [#/volume ] in Blood by Automated count 3.8-11.6 [facility] pH Test strip (U)Ordered By: Cole Cast on 06-11-2024 pH (U) pH of Urine by Test strip 5.0-9.0 [facility] 30on 05-25-2024 30 Problem: Pain - Adul t Goal: Verbalizes/displays adequate comfort level or baseline comfort level 05/25/2024 1031 by Aminah Campbell RN Outcome: Adequate for Discharge 05/25/2024 1030 by Aminah Campbell RN Outcome: Progressing Problem: Safety - Adult Goal: Free from fall injury 05/25/2024 1031 by Aminah Campbell RN Outcome: Adequate for Discharge 05/25/2024 1030 by Aminah Campbell RN Outcome: Progressing Problem: Discharge Planning Goal: Discharge to home or other facility with appropriate resources 05/25/2024 1031 by Aminah Campbell RN Outcome: Adequate for Discharge 05/25/2024 1030 by Aminah Campbell RN Outcome: Progressing Problem: Chronic Conditions and Co-morbidities Goal: Patient's chronic conditions and co-morbidity symptoms are monitored and maintained or improved 05/25/2024 1031 by Aminah Campbell RN Outcome: Adequate for Discharge 05/25/2024 1030 by Aminah Campbell RN Outcome: Progressing Normal [facility] 30 Problem: Pain - Adul t Goal: Verbalizes/displays adequate comfort level or baseline comfort level Outcome: Progressing Problem: Safety - Adult Goal: Free from fall injury Outcome: Progressing Problem: Discharge Planning Goal: Discharge to home or other facility with appropriate resources Outcome: Progressing Problem: Chronic Conditions and Co-morbidities Goal: Patient's chronic conditions and co-morbidity symptoms are monitored and maintained or improved Outcome: Progressing The patient is Moderately Stable - Low risk of patient condition declining or worsening The patient's goals for the shift include comfort The clinical goals for the shift include VSS Normal [facility] 30 The patient is Moderately Stable - Low risk of patient condition declining or worsening The patient's goals for the shift include comfort The clinical goals for the shift include stable vitals Problem: Pain - Adult Goal: Verbalizes/displays adequate comfort level or baseline comfort level Outcome: Progressing Problem: Safety - Adult Goal: Free from fall injury Outcome: Progressing Problem: Discharge Planning Goal: Discharge to home or other facility with appropriate resources Outcome: Progressing Problem: Chronic Conditions and Co-morbidities Goal: Patient's chronic conditions and co-morbidity symptoms are monitored and maintained or improved Outcome: Progressing Normal [facility] BASIC METABOLIC PANELon 03-2 Anion gap [Moles/Vol] 10 mmol/L Normal 7-20 [facility] Comment on above: Performed By: #### L [id number] ####[facility] (AKER)[address] [place] [address] Calcium [Mass/Vol] 8.7 mg/dL Normal 8.6-10.3 [facility] Comment on above: Performed By: #### L [id number] ####[facility] ([facility]ER)[address] [place] [address] Chloride [Moles/Vol] 108 mmol/L High 98-107 [facility] Comment on above: Performed By: #### L [id number] ####[facility] (BEAKER)[address] [place] [address] CO2 [Moles/Vol] 25 mmol/L Normal 21-31 [facility] Comment on above: Performed By: #### L [id number] ####[facility] ([facility])[address] [place] [address] Creatinine [Mass/Vol] 1.04 mg/dL Normal 0.60-1.20 [facility] Comment on above: Performed By: #### L [id number] ####[facility] [place] [address] GLOMERULAR FILTRATION RATE ML/MIN/1.73 SQ M.PREDICTED 67.1 mL/min/1.73m*2 Normal >60.0 [facility] Comment on above: Result Comment: The [facility]???s estimated glomerular filtration rate (eGFR) will no longer include consideration of race in its calculation. The National Kidney Foundation???s eGFR Task Force developed new recommendations for [...] disproportionately affect any one group of individuals. Performed By: #### L [id number] ####[facility] ([facility])[address] [place] [address] Glucose [Mass/Vol] 100 mg/dL Normal 70-100 [facility] Comment on above: Performed By: #### L [id number] ####[facility] ([facility])[address] [place] [address] Potassium [Moles/Vol] 4.9 mmol/L Normal 3.5-5.1 [facility] Comment on above: Performed By: #### L [id number] ####[facility] ([facility])[address] [place] [address] Sodium [Moles/Vol] 138 mmol/L Normal 136-145 [facility] Comment on above: Performed By: #### L [id number] ####[facility] ([facility] [place] [address] Urea nitrogen [Mass/Vol] 11 mg/dL Normal 7-25 [facility] Comment on above: Performed By: #### L [id number] ####[facility] ([facility] [place] [address] UREA NITROGEN/CREATININE (MASS RATIO) IN SER/PLAS 10.6 Normal [facility] Comment on above: Performed By: #### L [id number] ####[facility] ([facility])[address] [place] [address] CBCon 05-25-2024 Erythrocyte distribution width (RBC) [Ratio] 14.6 % Normal 11.5-15.0 [facility] Comment on above: Performed By: #### L [id number] #### [facility] ([facility]) [address] [place] [address] ERYTHROCYTE MEAN CORPUSCULAR HEMOGLOBIN CONCENTRATION (G/DL) BY AUTOMATED 31.6 g/dL Low 32.0-35.0 [facility] Comment on above: Performed By: #### L [id number] #### [facility] ([facility]) [address] [place] [address] Hematocrit (Bld) [Volume fraction] 30.7 % Low 36.0-45.0 [facility] Comment on above: Performed By: #### L [id number] #### [facility] ([facility]) [address] [place] [address] Hemoglobin (Bld) [Mass/Vol] 9.7 g/dL Low 12.0-15.0 [facility] Comment on above: Performed By: #### L [id number] #### [facility] ([facility]) [address] [place] [address] MCH (RBC) [Entitic mass] 28.9 pg Normal 27.0-33.0 [facility] Comment on above: Performed By: #### L [id number] #### [facility] ([facility]) [address] [place] [address] MCV (RBC) [Entitic vol] 91.4 fL Normal 82.0-98.0 U [facility] Comment on above: Performed By: #### L [id number] #### [facility] [address] [place] [address] PLATELETS (10*3/UL) IN BLOOD AUTOMATED COUNT 189 10*3/uL Normal 150-400 [facility] Comment on above: Performed By: #### L [id number] #### [facility] ([facility]) [address] [place] [address] RBC (Bld) [#/Vol] 3.36 10*6/uL Low 3.80-5.00 [facility] Comment on above: Performed By: #### L [id number] #### [facility] ([facility]) [address] [place] [address] WBC (Bld) [#/Vol] 5.23 10*3/uL Normal 4.00-10.60 [facility] Comment on above: Performed By: #### L [id number] #### [facility] ([facility]) [address] [place] [address] 30on 05-24-2024 30 Daily Case Managemen t Update Multidisciplinary rounds have been completed. Barriers to Discharge: Patient was transferred from [facility] with NSTEMI, abnormal EKG and stress test. Plan is for a heart cath today. IV heparin started. Diet: Dietary Orders (From admission, onward) Start Ordered 05/24/24 1125 Diet NPO Diet effective now Comments: Sips with medications Question: Reason for NPO: Answer: Operation/Procedure 05/24/24 1124 Physician Expected Discharge Date: 05/25/2024 Discharge Delays: PT Six Click Score: OT Six Click Score: PT Recommendations: OT Recommendations: Is expected discharge disposition appropriate for patient?: Yes New Consults: Normal [facility] 30 The patient is Moderately Stable - Low risk of patient condition declining or worsening The patient's goals for the shift include Comfort The clinical goals for the shift include VSS Normal [facility] 30 The patient is Moderately Stable - Low risk of patient condition declining or worsening The patient's goals for the shift include Comfort The clinical goals for the shift include VSS [facility] ANTI-XA (HEPARIN LEVEL)on HEPARIN UNFRACTIONATED (U/ML) IN PPP BY CHROMOGENIC METHOD 0.49 IU/mL Normal 0.3-0.7 [facility] Comment on above: Order Comment: Check anti-Xa level every 6 hours while on heparin infusion, or per protocol. Result Comment: Jamilah roxaban and Apixaban will interfere with the anti Xa assay used to monitor UFH and LMWH. Performed By: #### L [id number] #### [facility] ([facility]) [address] [place] [address] APTTon 05-24-2024 ACTIVATED PARTIAL THROMBOPLASTIN TIME IN PPP BY COAGULATION ASSAY <20.0 Low 25.0-35.0 [facility] Comment on above: Order Comment: Basel ine aPTT before initiating heparin infusion. Result Comment: Clin ical significance of the APTT is questionable in the presence of heparin. Performed By: #### L [id number] #### [facility] ([facility]) [address] [place] [address] CBC WITH AUTO DIFFERENTIALon 05-24-2024 Erythrocyte distribution width (RBC) [Ratio] 14.7 % Normal 11.5-15.0 [facility] Comment on above: Performed By: #### L [id number] #### [facility] ([facility]) [address] [place] [address] ERYTHROCYTE MEAN CORPUSCULAR HEMOGLOBIN CONCENTRATION (G/DL) BY AUTOMATED 31.8 g/dL Low 32.0-35.0 [facility] Comment on above: Performed By: #### L [id number] #### [facility] ([facility]) [address] [place] [address] Hematocrit (Bld) [Volume fraction] 30.5 % Low 36.0-45.0 [facility] Comment on above: Performed By: #### L [id number] #### [facility] ([facility]) [address] [place] [address] Hemoglobin (Bld) [Mass/Vol] 9.7 g/dL Low 12.0-15.0 [facility] Comment on above: Performed By: #### L [id number] #### [facility] ([facility]) [address] [place] [address] IMMATURE PLATELET FRACTION % 1.3 % Normal 0.8-6.3 [facility] Comment on above: Performed By: #### L [id number] #### [facility] [address] [place] [address] MCH (RBC) [Entitic mass] 29.5 pg Normal 27.0-33.0 [facility] Comment on above: Performed By: #### L [id number] #### [facility] ([facility]) [address] [place] [address] MCV (RBC) [Entitic vol] 92.7 fL Normal 82.0-98.0 U [facility] Comment on above: Performed By: #### L [id number] #### [facility] ([facility]) [address] [place] [address] NRBC (PER 100 WBCS) BY AUTOMATED COUNT 0.0 % Normal 0 [facility] Comment on above: Performed By: #### L [id number] #### [facility] ([facility]) [address] [place] [address] PLATELETS (10*3/UL) IN BLOOD AUTOMATED COUNT 153 10*3/uL Normal 150-400 [facility] Comment on above: Result Comment: Slid e checked, no clumps or clots seen Performed By: #### L [id number] #### [facility] ([facility]) [address] [place] [address] RBC (Bld) [#/Vol] 3.29 10*6/uL Low 3.80-5.00 [facility] Comment on above: Performed By: #### L [id number] #### [facility] ([facility]) [address] [place] [address] WBC (Bld) [#/Vol] 5.00 10*3/uL Normal 4.00-10.60 [facility] Comment on above: Performed By: #### L [id number] #### [facility] ([facility]) [address] [place] [address] COMPREHENSIVE METABOLIC PANE Seng 05-24-2024 Albumin [Mass/Vol] 3.4 g/dL Low 3.5-5.7 [facility] Comment on above: Performed By: #### L [id number] #### [facility] ([facility] [address] [place] [address] ALP [Catalytic activity/Vol] 65 U/L Normal 34-104 [facility] Comment on above: Performed By: #### L [id number] #### [facility] ([facility] [address] [place] [address] ALT [Catalytic activity/Vol] 20 U/L Normal 7-52 [facility] Comment on above: Performed By: #### L [id number] #### [facility] ([facility] [address] [place] [address] Anion gap [Moles/Vol] 9 mmol/L Normal 7-20 [facility] Comment on above: Performed By: #### L [id number] #### [facility] ([facility]) [address] [place] [address] AST [Catalytic activity/Vol] 21 U/L Normal 13-39 [facility] Comment on above: Performed By: #### L [id number] #### [facility] ([facility]) [address] [place] [address] Bilirubin [Mass/Vol] 0.5 mg/dL Normal 0.3-1.0 [facility] Comment on above: Performed By: #### L [id number] #### [facility] ([facility] [address] [place] [address] Calcium [Mass/Vol] 8.6 mg/dL Normal 8.6-10.3 [facility] Comment on above: Performed By: #### L [id number] #### [facility] ([facility] [address] [place] [address] Chloride [Moles/Vol] 107 mmol/L Normal 98-107 [facility] Comment on above: Performed By: #### L [id number] #### [facility] ([facility] [address] [place] [address] CO2 [Moles/Vol] 28 mmol/L Normal 21-31 [facility] Comment on above: Performed By: #### L [id number] #### [facility] ([facility]) [address] [place] [address] Creatinine [Mass/Vol] 1.06 mg/dL Normal 0.60-1.20 [facility] Comment on above: Performed By: #### L [id number] #### [facility] ([facility]) [address] [place] [address] GLOMERULAR FILTRATION RATE ML/MIN/1.73 SQ M.PREDICTED 65.6 mL/min/1.73m*2 Normal >60.0 [facility] Comment on above: Result Comment: The [facility]???s estimated glomerular filtration rate (eGFR) will no longer include consideration of race in its calculation. The National Kidney Foundation???s eGFR Task Force developed new recommendations for [...] disproportionately affect any one group of individuals. Performed By: #### L [id number] #### [facility] ([facility]) [address] [place] [address] Glucose [Mass/Vol] 99 mg/dL Normal 70-100 [facility] Comment on above: Performed By: #### L [id number] #### [facility] ([facility]) [address] [place] [address] Potassium [Moles/Vol] 4.6 mmol/L Normal 3.5-5.1 [facility] Comment on above: Performed By: #### L [id number] #### [facility] ([facility]) [address] [place] [address] Protein [Mass/Vol] 5.9 g/dL Low 6.0-8.3 [facility] Comment on above: Performed By: #### L [id number] #### [facility] (BEAKER) [address] [place] [address] Sodium [Moles/Vol] 139 mmol/L Normal 136-145 [facility] Comment on above: Performed By: #### L [id number] #### [facility] ([facility]ER) [address] [place] [address] Urea nitrogen [Mass/Vol] 11 mg/dL Normal 7-25 [facility] Comment on above: Performed By: #### L [id number] #### [facility] ([facility]ER) [address] [place] [address] UREA NITROGEN/CREATININE (MASS RATIO) IN SER/PLAS 10.4 Normal [facility] Comment on above: Performed By: #### L [id number] #### [facility] (BEAKER) [address] [place] [address] CONSULTon 05-24-2024 CONSULT -- Attestation signed by Vira Heath MD at 05/24/2024 6:07 PM 05/24/24 By using the attestations below, the signing clinician agrees that I have read and verify that the documentation has been personally reviewed by me and ensure that the documentation accurately reflects the encounter. GC: I personally saw this patient on the day of the encounter, performed the ahmadi portion(s) of the service and participated in the management and confirm the resident's documentation. Please note there may be an additional personal documentation from me. My additional comments are as follows: Agree with the excellent note below. Plan for obtaining echocardiogram as well as serial EKGs and troponins Vira Heath MD, ScM, MSc Cardiac [place] [employer] Email: [email or web address] Cardiology Consult Note Reason for Consult: NSTEMI HPI: Shahla Arias is a 44 y.o. female with past history remarkable for primary hypertension, peripheral artery disease, preexcitation on EKG who presented to [facility] as a transfer from [facility] where she initially presented complaining of abdominal pain, nausea and vomiting that she relates it started after she ate at a restaurant outside. Initial workup in [facility] showed elevated high-sensitivity troponin of 140 which trended downward during hospital admission to 84. Reported that she was not able to complete a stress test in [facility] and cardiology team were contacted for transferring patient for further evaluation and management. During my evaluation today, patient denied having any chest pain at all, reported that she has been having flulike symptoms over the last few days. Denied having history of coronary artery disease. She also reported that she is having productive cough of yellowish to whitish sputum. Cardiology ROS: Review of Systems Constitutional: Positive for fatigue. Negative for activity change and appetite change. Respiratory: Positive for cough. Negative for chest tightness, shortness of breath and wheezing. Cardiovascular: Negative for chest pain, palpitations and leg swelling. Gastrointestinal: Negative for abdominal pain, nausea and vomiting. Neurological: Negative for dizziness and light-headedness. Past Medical History She has a past medical history of Alcohol abuse, GERD (gastroesophageal reflux disease), Hypertension, PAD (peripheral artery disease), Palpitations, and Raynaud's disease. Surgical History She [...] Onset Hypertension Mother Cancer Mother Stroke Mother Allergies Ciprofloxacin, Metronidazole, and Penicillins Medications Current Outpatient Medications Medication Instructions albuterol 90 mcg/actuation inhaler 2 puffs, inhalation, Every 6 hours PRN aspirin 81 mg EC tablet 1 tablet Orally Once a day atorvastatin (LIPITOR) 40 mg, oral, Daily buPROPion XL (WELLBUTRIN XL) 150 mg, oral, Daily RT cholecalciferol (Vitamin D-3) 50 MCG (1999 UT) tablet oral, Daily clopidogrel (PLAVIX) 75 mg, oral, Daily RT gabapentin (NEURONTIN) 600 mg, oral, 3 times daily RT levomilnacipran (FETZIMA) 40 mg, oral, Daily LORazepam (Ativan) 1 mg tablet 1 tablet, oral, Every 8 hours PRN OLANZapine (ZyPREXA) 5 mg tablet take 1 tablet by mouth three times a day if needed for AGITATION olmesartan-hydrochloro thiazide (BENIcar HCT) 20-12.5 mg tablet 1 tablet, oral, As needed omeprazole (PRILOSEC) 40 mg, oral, 2 times daily Medications Prior to Admission Medication Sig Dispense Refill Last Dose albuterol 90 mcg/actuation inhaler Inhale 2 puffs every 6 (six) hours if needed for wheezing. Past Week aspirin 81 mg EC tablet 1 tablet Orally Once a day 05/23/2024 atorvastatin (Lipitor) 40 mg tablet Take 40 mg by mouth in the morning. 05/23/2024 buPROPion XL (Wellbutrin XL) 150 mg 24 hr tablet Take 150 mg by mouth in the morning. 05/23/2024 cholecalciferol (Vitamin D-3) 50 MCG (1999 UT) tablet Take by mouth in the morning. 05/23/2024 clopidogrel (Plavix) 75 mg tablet Take 75 mg by mouth in the morning. 05/23/2024 gabapentin (Neurontin) 600 mg tablet Take 600 mg by mouth in the morning, afternoon, and at bedtime. 05/23/2024 LORazepam (Ativan) 1 mg tablet Take 1 tablet by mouth every 8 (eight) hours if needed for anxiety. 05/23/2024 OLANZapine (ZyPREXA) 5 mg tablet take 1 tablet by mouth three times a day if needed for AGITATION 05/23/2024 olmesar (more content not included)... Normal [facility] HIGH SENSITIVITY TROPONIN Io n 05-24-2024 HS TROPONIN I (NG/L) 52 ng/L Critically high <15 [facility] Comment on above: Performed By: #### L [id number] #### [facility] ([facility]) [address] [place] [address] HPon 05-24-2024 HP H&P reviewed. The patient was examined and there are no changes to the H&P. Mrs. Arias, a 44 year old female patient is scheduled for coronary angiogram for NSTEMI with abnormal stress test (anterior reversible defect and TID). Normal [facility] LIPASEon 05-24-2024 LIPASE (U/L) IN SER/PLAS 39 U/L Normal 11-82 [facility] Comment on above: Performed By: #### L [id number] #### [facility] ([facility]) [address] [place] [address] MAGNESIUMon 05-24-2024 Magnesium [Mass/Vol] 1.7 mg/dL Low 1.9-2.7 [facility] Comment on above: Performed By: #### L [id number] #### [facility] ([facility]) [address] [place] [address] MANUAL DIFFERENTIALon 2024 BASOPHILS (10*3/UL) IN BLOOD BY CALCULATION 0.03 10*3/uL Normal 0.00-0.20 [facility] Comment on above: Performed By: #### L [id number] ####[facility] ([facility])[address] [place] [address] BASOPHILS/100 LEUKOCYTES IN BLOOD BY AUTOMATED COUNT 0.6 % Normal 0.0-1.0 [facility] Comment on above: Performed By: #### L [id number] ####[facility] ([facility])[address] [place] [address] EOSINOPHILS (10*3/UL) IN BLOOD BY CALCULATION 0.10 10*3/uL Normal 0.00-0.50 [facility] Comment on above: Performed By: #### L [id number] ####[facility] ([facility])[address] [place] [address] EOSINOPHILS/100 LEUKOCYTES IN BLOOD BY AUTOMATED COUNT 2.0 % Normal 0.0-6.0 [facility] Comment on above: Performed By: #### L [id number] ####[facility] ([facility] [place] [address] IMMATURE GRANULOCYTES (10*3/UL) IN BLOOD BY CALCULATION 0.02 10*3/uL Normal 0.00-0.20 [facility] Comment on above: Performed By: #### L [id number] ####[facility] ([facility])[address] [place] [address] IMMATURE GRANULOCYTES/100 LEUKOCYTES IN BLOOD BY AUTOMATED COUNT 0.4 % Normal 0.0-1.0 [facility] Comment on above: Performed By: #### L [id number] ####[facility] ([facility])[address] [place] [address] LYMPHOCYTES (10*3/UL) IN BLOOD BY CALCULATION 1.07 10*3/uL Low 1.20-4.00 [facility] Comment on above: Performed By: #### L [id number] ####[facility] ([facility])[address] [place] [address] LYMPHOCYTES/100 LEUKOCYTES IN BLOOD BY AUTOMATED COUNT 21.4 % Normal 20.0-45.0 [facility] Comment on above: Performed By: #### L [id number] ####[facility] ([facility])[address] [place] [address] MONOCYTES (10*3/UL) IN BLOOD BY CALCUATION 0.44 10*3/uL Normal 0.10-1.00 [facility] Comment on above: Performed By: #### L [id number] ####[facility] ([facility] [place] [address] MONOCYTES/100 LEUKOCYTES IN BLOOD BY AUTOMATED COUNT 8.8 % Normal 5.0-12.0 [facility] Comment on above: Performed By: #### L [id number] ####[facility] ([facility] [place] [address] NEUTROPHILS (10*3/UL) IN BLOOD BY CALCULATION 3.3 10*3/uL Normal 1.6-7.6 [facility] Comment on above: Performed By: #### L [id number] ####[facility] ([facility])[address] [place] [address] NEUTROPHILS/100 LEUKOCYTES IN BLOOD BY AUTOMATED COUNT 66.8 % Normal 40.0-72.0 [facility] Comment on above: Performed By: #### L [id number] ####[facility] ([facility])[address] [place] [address] SERUM QUALITATIVEo n 05-24-2024 HCG SERUM-QNI/QML-[id number] Negative [facility] Comment on above: Performed By: #### L [id number] #### [facility] ([facility]) [address] [place] [address] URINALYSISon 05-24-2024 BILIRUBIN, TOTAL PRESENCE IN URINE Negative Normal Negative [facility] Comment on above: Performed By: #### L [id number] ####[facility] ([facility])[address] [place] [address] Clarity (U) Clear Normal Clear [facility] Comment on above: Performed By: #### L [id number] ####[facility] ([facility])[address] [place] [address] Color (U) Light-Yellow Normal Colorless, Yellow, Light-Yello w [facility] Comment on above: Performed By: #### L [id number] ####[facility] ([facility])[address] [place] [address] GLUCOSE (MG/DL) IN URINE Normal Normal Normal [facility] Comment on above: Performed By: #### L [id number] ####[facility] ([facility])[address] [place] [address] HEMOGLOBIN PRESENCE IN URINE Negative Normal Negative [facility] Comment on above: Performed By: #### L [id number] ####[facility] ([facility])[address] [place] [address] Ketones Ql (U) Negative Normal Negative [facility] Comment on above: Performed By: #### L [id number] ####[facility] ([facility])[address] [place] [address] LEUKOCYTE ESTERASE PRESENCE IN URINE BY TEST STRIP Moderate Abnormal Negative [facility] Comment on above: Performed By: #### L [id number] ####[facility] ([facility])[address] [place] [address] NITRITE PRESENCE IN URINE Negative Normal Negative [facility] Comment on above: Performed By: #### L [id number] ####[facility] ([facility])[address] [place] [address] pH (U) 7.0 [pH] Normal 5.0-8.0 [facility] Comment on above: Performed By: #### L [id number] ####[facility] ([facility])[address] [place] [address] Protein (U) [Mass/Vol] Negative Normal [facility] on above: Performed By: #### L [id number] ####[facility] ([facility])[address] [place] [address] Specific gravity (U) [Rel density] 1.013 Normal 1.010-1.030 [facility] Comment on above: Performed By: #### L [id number] ####[facility] ([facility])[address] [place] [address] UROBILINOGEN (MG/DL) IN URINE Normal Normal Normal [facility] Comment on above: Performed By: #### L [id number] ####[facility] ([facility])[address] [place] [address] URINALYSIS MICROSCOPICon RBC (#/HPF) IN URINE SEDIMENT 0-2 Normal None Seen, 0-2 [facility] Comment on above: Performed By: #### L [id number] #### [facility] ([facility]) [address] [place] [address] SQUAMOUS EPITHELIAL CELLS (#/LPF) IN URINE SEDIMENT Many Abnormal None Seen, Occasional, Few [facility] Comment on above: Performed By: #### L [id number] #### [facility] ([facility]) [address] [place] [address] WBC (LEUKOCYTE) (#/HPF) IN URINE SEDIMENT 3-5 Abnormal None Seen, 0-2 [facility] Comment on above: Performed By: #### L [id number] #### [facility] ([facility]) [address] [place] [address] COVID Cepheidon 03-31-2024 SARS-CoV-2 (COVID-19) RNA PITO+probe Ql (Unsp spec) COVID Cepid [facility] - Microbiology an d Antimicrobial susceptibilityon 03-31-2024 SARS-CoV-2 (COVID-19) RNA PITO+probe Ql (Unsp spec) Negative [facility] No Panel Informationon 03-31 POC Influenza A (PCR) Negative [facility] POC Influenza B (PCR) Negative [facility] Office Visiton 03-15-2024 Follow-up visit [id number] Shahla Arias 1980 F Date Provider Department Center 03/15/2024 [facility] Family History Problem Relation Age of Onset Hypertension Mother Cancer Mother Stroke Mother Family Status - Relation Status Age at Mother Level of Service:29508 [place] OFFICE/OUTPATIENT ESTABLISHED LOW MDM 20 MIN Normal [facility] ECG 12 lead ECGon 11-09-2023 ECG 12 lead ECG [facility] [place] [address] Electrocardiograph Report Signed Patient: Shahla Arias MR#: [id number] : 1980 Acct:[id number] Age/Sex: 43 / F ADM Date: 11/08/23 Loc: Room: [address] [place] [address] Type: ADM IN Attending Dr: Geo Loomis [...] in Inferior leads Confirmed by Julieth Kumar ([id number]) on 11/10/2023 5:37:37 PM Referred By: Electronically Signed By: Julieth Kumar Transcribed By: MUS Signed By Julieth Kumar DO 4 1737 Normal [facility] Alanine aminotransferase [En zymatic activity/volume] in Serum or PlasmaOrdered By: Art Pa on 11-08-2023 ALT [Catalytic activity/Vol] 18 U/L Normal 7-52 [facility] Comment on above: Performed By: #### C MP, ETOH, CBC #### [facility] [address] [place] [address] [place] Albumin [Mass/volume] in Ser um or Plasma by Bromocresol green (BCG) dye binding methoOrdered By: Art Pa on 11-08-2023 Albumin BCG dye [Mass/Vol] 4.1 g/dL 3.5-5.7 [facility] Alkaline phosphatase [Enzyma tic activity/volume] in Serum or PlasmaOrdered By: Art Pa on 11-08-2023 ALP [Catalytic activity/Vol] 93 U/L Normal 34-104 [facility] Comment on above: Performed By: #### C MP, ETOH, CBC #### [facility] [address] [place] [id number] [place] Amphetamine Screen Ql (U)Ord ered By: Art Pa on 11-08-2023 Amphetamines Ql (U) Negative Negative [facility] Aspartate aminotransferase [ Enzymatic activity/volume] in Serum or PlasmaOrdered By: Art Pa on 11-08-2023 AST [Catalytic activity/Vol] 19 U/L Normal 13-39 [facility] Comment on above: Performed By: #### C MP, ETOH, CBC #### [facility] [address] [place] [id number] [place] Automated basophil %Ordered By: Art Pa on 11-08-2023 Basophils/100 WBC (Bld) 0.7 % Normal . F [facility] Comment on above: Performed By: #### C MP, ETOH, CBC #### [address] Automated basophil countOrde red By: Art Pa on 11-08-2023 Basophils (Bld) [#/Vol] 0.1 10*3/uL Normal 0.0-0.2 [facility] Comment on above: Result Comment: PERF ORMED BY: [place] [address] PATHOLOGIST [employer] MANAGER DANNIE MOODY M.D. Performed By: #### C MP, ETOH, CBC #### [address] Automated blood monocyte cou ntOrdered By: Art Pa on 11-08-2023 Monocytes (Bld) [#/Vol] 0.9 10*3/uL High 0.0-0.8 [facility] Comment on above: Performed By: #### C MP, ETOH, CBC #### [address] Automated eosinophil %Ordere d By: Art Pa on 11-08-2023 Eosinophils/100 WBC (Bld) 0.1 % Normal . [facility] Comment on above: Performed By: #### C MP, ETOH, CBC #### [address] Automated eosinophil countOr dered By: Art Pa on 11-08-2023 Eosinophils (Bld) [#/Vol] 0.0 10*3/uL Normal 0.0-0.45 [facility] Comment on above: Performed By: #### C MP, ETOH, CBC #### [address] Automated monocyte %Ordered By: Art Pa on 11-08-2023 Monocytes/100 WBC (Bld) 7.5 % Normal . F [facility] Comment on above: Performed By: #### C MP, ETOH, CBC #### [facility] [address] Automated neutrophil %Ordere d By: Art Pa on 11-08-2023 Neutrophils/100 WBC (Bld) 69.7 % Normal . [facility] Comment on above: Performed By: #### C MP, ETOH, CBC #### [facility] [address] Bacteria [Presence] in Urine by AutomatedOrdered By: Art Pa on 11-08-2023 Bacteria Auto Ql (U) Rare [HPF] None Seen [facility] Barbiturates [Presence] in U rine by Screen methodOrdered By: Art Pa on 11-08-2023 Barbiturates Screen Ql (U) Negative Negative [facility] Benzodiazepines Screen Ql (U )Ordered By: Art Pa on 11-08-2023 Benzodiazepines Ql (U) Negative Negative [place] Benzoylecgonine [Presence] i n Urine by Screen methodOrdered By: Art Pa on 11-08-2023 Benzoylecgonine Screen Ql (U) Negative Negative [facility] Bilirubin Test strip Ql (U)O rdered By: Art Pa on 11-08-2023 Bilirubin Ql (U) Negative Negative [facility] Bilirubin.total [Mass/volume ] in Serum or PlasmaOrdered By: Art Pa on 11-08-2023 Bilirubin [Mass/Vol] 0.5 mg/dL Normal 0.3-1.0 [facility] Comment on above: Performed By: #### C MP, ETOH, CBC #### [facility] [address] [place] [address] [place] Calcium [Mass/volume] in Ser um or PlasmaOrdered By: Art Pa on 11-08-2023 Calcium [Mass/Vol] 9.6 mg/dL Normal 8.6-10.3 [facility] Comment on above: Performed By: #### C MP, ETOH, CBC #### [facility] [address] [place] [address] [place] Cannabinoids [Presence] in U rine by Screen methodOrdered By: Art Pa on 11-08-2023 Cannabinoids Screen Ql (U) Negative Negative [facility] Comment on above: These are unconfirme d results and should not be used for legal purposes. Drug Cut-Off Concentration: AMPH 1000 ng/mL SANDEEP 200 ng/mL JERSON 200 ng/mL COCM 300 ng/mL OP 300 ng/mL PCP 25 ng/mL THC 20 ng/mL Carbon dioxide, total [Moles /volume] in Serum or PlasmaOrdered By: Art Pa on 11-08-2023 CO2 [Moles/Vol] 29.1 mmol/L Normal 21.0-31.0 [facility] Comment on above: Performed By: #### C MP, ETOH, CBC #### [facility] [address] [place] [address] [place] Chloride [Moles/volume] in S monse or PlasmaOrdered By: Art Pa on 11-08-2023 Chloride [Moles/Vol] 101 mmol/L Normal 98-107 [facility] Comment on above: Performed By: #### C MP, ETOH, CBC #### [facility] [address] [place] [address] [place] Cholesterol [Mass/volume] in Serum or PlasmaOrdered By: Geo Loomis on 11-08-2023 Cholesterol [Mass/Vol] 162 mg/dL Normal 140-200 [place] Comment on above: Chol less than 200 m g/dl low riskChol 201-239 mg/dl borderline riskChol 240 mg/dl and greater high risk Order Comment: KAYLIE Erwin Comment use from ER Result Comment: Chol less than 200 mg/dl low risk Chol 201-239 mg/dl borderline risk Chol 240 mg/dl and greater high risk Performed By: #### C MP, ETOH, CBC #### [facility] [address] [place] [address] [place] Cholesterol in LDL Calc [Mas s/Vol]Ordered By: Geo Loomis on 11-08-2023 Cholesterol in LDL [Mass/Vol] 86 mg/dL 0-100 [facility] Comment on above: LDL ATP III CLASSIFI CATIONLDL less than 100 mg/dL OptimalLDL 100-129 mg/dL Near or above optimalLDL 130-159 mg/dL Borderline highLDL 160-189 mg/dL HighLDL greater than 189 mg/dL Very high Cholesterol in VLDL Calc [Ma ss/Vol]Ordered By: Geo Loomis on 11-08-2023 Cholesterol in VLDL [Mass/Vol] 26 mg/dL [facility] Color of Urine by AutoOrdere d By: Art Pa on 11-08-2023 Color (U) Yellow Normal Yellow [facility] Comment on above: Order Comment: Name Collection Type:: Clean-Voided Midstream Performed By: #### U HCG, CUU, ADDONUAPLUS, URDS #### [address] Complete Blood Count Auto Di ffon 11-08-2023 Mean Corpuscular HGB Conc 33.2 g/dL Normal 32.0-35.0 [facility] Comment on above: Performed By: #### C MP, ETOH, CBC #### [address] Monocytes/100 WBC (Bld) 17.72 % Normal 0.00-20.00 [facility] Comment on above: Performed By: #### C MP, ETOH, CBC #### [address] NRBC% 0.0 /100{WBC} Normal 0-0.5 [facility] Comment on above: Performed By: #### C MP, ETOH, CBC #### [address] Comprehensive Metabolic Pane seng 11-08-2023 Albumin [Mass/Vol] 4.1 g/dL Normal 3.5-5.7 [facility] Comment on above: Performed By: #### C MP, ETOH, CBC #### [place] [address] [place] Creatinine Clr Calc Pharmacy 97.34 Normal [facility] Comment on above: Result Comment: PERF ORMED BY: [place] [address] PATHOLOGIST COMMER[employer] SALES MANAGER DANNIE MOODY M.D. Performed By: #### C MP, ETOH, CBC #### [address] GFR/1.73 sq M.predicted MDRD (S/P/Bld) [Vol rate/Area] mL/min/{1.73_m2} Normal [facility] Comment on above: Performed By: #### C MP, ETOH, CBC #### [facility] [address] Creatinine [Mass/volume] in Serum or PlasmaOrdered By: Art Pa on 11-08-2023 Creatinine [Mass/Vol] 0.91 mg/dL Normal 0.60-1.20 [facility] Comment on above: Performed By: #### C MP, ETOH, CBC #### [facility] [address] Dipstick and Microscopicon 0 11-08-2023 Bacteria,Urine Rare Normal None Seen [facility] Comment on above: Order Comment: Name Collection Type:: Clean-Voided Midstream Performed By: #### U HCG, CUU, ADDONUAPLUS, URDS #### [facility] [address] Bilirubin,Urine Negative Normal Negative [facility] Comment on above: Order Comment: Name Collection Type:: Clean-Voided Midstream Performed By: #### U HCG, CUU, ADDONUAPLUS, URDS #### [facility] [address] [place] [address] [place] Glucose Ql (U) Normal Normal Normal [facility] Comment on above: Order Comment: Name Collection Type:: Clean-Voided Midstream Performed By: #### U HCG, CUU, ADDONUAPLUS, URDS #### [facility] [address] [place] [id number] [place] Hyaline Casts,Urine None Normal 0-8 [facility] Comment on above: Order Comment: Name Collection Type:: Clean-Voided Midstream Performed By: #### U HCG, CUU, ADDONUAPLUS, URDS #### [facility] [address] [place] [address] [place] Mucus,Urine Rare Normal [facility] Comment on above: Order Comment: Name Collection Type:: Clean-Voided Midstream Performed By: #### U HCG, CUU, ADDONUAPLUS, URDS #### [place] [address] [place] Nitrite,Urine Negative Normal Negative [facility] Comment on above: Order Comment: Name Collection Type:: Clean-Voided Midstream Performed By: #### U HCG, CUU, ADDONUAPLUS, URDS #### [place] [address] [place] Occult Blood,Urine 1+ High Negative [facility] Comment on above: Order Comment: Name Collection Type:: Clean-Voided Midstream Performed By: #### U HCG, CUU, ADDONUAPLUS, URDS #### [address] Protein,Urine Negative Normal Negative [facility] Comment on above: Order Comment: Name Collection Type:: Clean-Voided Midstream Performed By: #### U HCG, CUU, ADDONUAPLUS, URDS #### [address] RBC,Urine 3-4 Normal 0-4 [facility] Comment on above: Order Comment: Name Collection Type:: Clean-Voided Midstream Performed By: #### U HCG, CUU, ADDONUAPLUS, URDS #### [address] Specificy [place],Urine 1.018 Normal 1.001-1.030 [facility] Comment on above: Order Comment: Name Collection Type:: Clean-Voided Midstream Performed By: #### U HCG, CUU, ADDONUAPLUS, URDS #### [place] [address] [place] Squamous Epithelial Cell,Urine 3-4 High 0-2 [facility] Comment on above: Order Comment: Name Collection Type:: Clean-Voided Midstream Performed By: #### U HCG, CUU, ADDONUAPLUS, URDS #### [address] Urobilinogen,Urine Normal Normal Normal [facility] Comment on above: Order Comment: Name Collection Type:: Clean-Voided Midstream Performed By: #### U HCG, CUU, ADDONUAPLUS, URDS #### [address] WBC,Urine 5-9 High 0-4 [facility] Comment on above: Order Comment: Name Collection Type:: Clean-Voided Midstream Performed By: #### U HCG, CUU, ADDONUAPLUS, URDS #### [place] [address] [place] Drug Screen,Urineon 11-08-19 Amphetamine Screen,Urine Negative Normal Negative [facility] Comment on above: Performed By: #### U HCG, CUU, ADDONUAPLUS, URDS #### [address] Barbiturate Screen,Urine Negative Normal Negative [facility] Comment on above: Performed By: #### U HCG, CUU, ADDONUAPLUS, URDS #### [address] Benzodiazepines Screen,Urine Negative Normal Negative [facility] Comment on above: Performed By: #### U HCG, CUU, ADDONUAPLUS, URDS #### [address] Cannabinoid Screen,Urine Negative Normal Negative [facility] Comment on above: Result Comment: Thes e are unconfirmed results and should not be used for legal purposes. Drug Cut-Off Concentration: AMPH 1000 ng/mL SANDEEP 200 ng/mL JERSON 200 ng/mL COCM 300 ng/mL OP 300 ng/mL PCP 25 ng/mL THC 20 ng/mL PERFORMED BY: [place] [address] PATHOLOGIST COMMERCIAL SALES MANAGER DANNIE MOODY M.D. Performed By: #### U HCG, CUU, ADDONUAPLUS, URDS #### [address] Cocaine Screen,Urine Negative Normal Negative [facility] Comment on above: Performed By: #### U HCG, CUU, ADDONUAPLUS, URDS #### [facility] [address] Opiate Screen,Urine Negative Normal Negative [facility] Comment on above: Performed By: #### U HCG, CUU, ADDONUAPLUS, URDS #### [facility] [address] Phencyclidine Screen,Urine Negative Normal Negative [facility] Comment on above: Performed By: #### U HCG, CUU, ADDONUAPLUS, URDS #### [facility] [address] Epithelial cells.squamous [# /area] in Urine sediment by Automated countOrdered By: Art Pa on 11-08-2023 Epithelial cells.squamous Auto (Urine sed) [#/Area] 3-4 [HPF] High 0-2 [facility] Erythrocyte distribution wid th [Ratio] by Automated countOrdered By: Art Pa on 11-08-2023 Erythrocyte distribution width (RBC) [Ratio] 15.2 % Normal 11.9-15.3 [facility] Comment on above: Performed By: #### C MP, ETOH, CBC #### [facility] [address] [place] [address] Erythrocytes [#/area] in Uri ne sediment by Automated countOrdered By: Art Pa on 11-08-2023 RBC Auto (Urine sed) [#/Area] 3-4 [HPF] 0-4 [facility] Erythrocytes [#/volume] in B lood by Automated countOrdered By: Art Pa on 11-08-2023 RBC (Bld) [#/Vol] 4.66 10*6/uL Normal 3.60-5.00 [facility] Comment on above: Performed By: #### C MP, ETOH, CBC #### [facility] [address] Ethanol [Mass/volume] in Ser um or PlasmaOrdered By: Art Pa on 11-08-2023 Ethanol [Mass/Vol] mg/dL Normal [facility] Comment on above: Performed By: #### C MP, ETOH, CBC #### [facility] [address] [place] [address] [place] Ethanol [Mass/Vol] TNP [facility] Comment on above: Test not performed Ethyl Alcohol Profileon Percent Ethanol Not performed Normal [facility] Comment on above: Result Comment: PERF ORMED BY: [facility] [address] [place] [id number] PATHOLOGIST COMMERCIAL SALES MANAGER DANNIE MOODY M.D. Performed By: #### C MP, ETOH, CBC #### [facility] [address] [place] [address] [place] Glucose [Mass/volume] in Ser um or PlasmaOrdered By: Art Pa on 11-08-2023 Glucose [Mass/Vol] 102 mg/dL High 70-100 [facility] Comment on above: ADA recommended refe rence rangeRandom Glucose Reference Range is dependent on time and content of last meal. Glucose of more than 200 mg/dL in a nonstressed, ambulatory subject supports the diagnosis of Diabetes Mellitus. Result Comment: [place] Glucose Reference Range is dependent on time and content of last meal. Glucose of more than 200 mg/dL in a nonstressed, ambulatory subject supports the diagnosis of Diabetes Mellitus. ADA recommended reference range Performed By: #### C MP, ETOH, CBC #### [facility] [address] [place] [address] [place] Glucose [Mass/volume] in Uri ne by Test stripOrdered By: Art Pa on 11-08-2023 Glucose Test strip (U) [Mass/Vol] Normal mg/dL Normal [facility] HCG ( test) IA.rapi d Ql (U)Ordered By: Art Pa on 11-08-2023 HCG ( test) Ql (U) Negative [facility] HCG,Urineon 11-08-2023 Beta HCG ( test) Ql (U) Negative Normal [facility] Comment on above: Order Comment: Name Collection Type:: Clean-Voided Midstream Result Comment: PERF ORMED BY: [facility] [address] [place] [address] PATHOLOGIST COMMERCIAL SALES MANAGER DANNIE MOODY M.D. Performed By: #### U HCG, CUU, ADDONUAPLUS, URDS #### [address] Hematocrit [Volume Fraction] of Blood by Automated countOrdered By: Art Pa on 11-08-2023 Hematocrit (Bld) [Volume fraction] 41.1 % Normal 34.0-46.4 [facility] Comment on above: Performed By: #### C MP, ETOH, CBC #### [address] Hemoglobin Test strip Ql (U) Ordered By: Art Pa on 11-08-2023 Hemoglobin Ql (U) 1+ High Negative [facility] Hemoglobin [Mass/volume] in BloodOrdered By: Art Pa on 11-08-2023 Hemoglobin (Bld) [Mass/Vol] 13.6 g/dL Normal 11.8-15.4 [facility] Comment on above: Performed By: #### C MP, ETOH, CBC #### [place] [address] [place] Hyaline casts [#/area] in Ur ine sediment by Automated countOrdered By: Art Pa on 11-08-2023 Hyaline casts Auto (Urine sed) [#/Area] None [LPF] 0-8 [facility] Ketones [Presence] in Urine by Test stripOrdered By: Atr Pa on 11-08-2023 Ketones Ql (U) Negative Normal Negative [facility] Comment on above: Order Comment: Name Collection Type:: Clean-Voided Midstream Performed By: #### U HCG, CUU, ADDONUAPLUS, URDS #### [place] [address] [place] Leukocyte esterase [Presence ] in Urine by Test stripOrdered By: Art Pa on 11-08-2023 Leukocyte esterase Test strip Ql (U) 3+ High Negative [facility] Comment on above: Order Comment: Name Collection Type:: Clean-Voided Midstream Performed By: #### U HCG, CUU, ADDONUAPLUS, URDS #### [address] [address] [place] Leukocytes [#/area] in Urine sediment by Automated countOrdered By: Art Pa on 11-08-2023 WBC Auto (Urine sed) [#/Area] 5-9 [HPF] High 0-4 [facility] Leukocytes [#/volume] correc hemalatha for nucleated erythrocytes in Blood by Automated counOrdered By: Art Pa on 11-08-2023 WBC corrected for nucl RBC Auto (Bld) [#/Vol] 11.4 10*3/uL 3.8-11.6 [facility] Leukocytes [#/volume] in Blo od by Automated countOrdered By: Art Pa on 11-08-2023 WBC (Bld) [#/Vol] 11.4 10*3/uL Normal 3.8-11.6 [facility] Comment on above: Performed By: #### C MP, ETOH, CBC #### [facility] [address] Lipid Panelon 11-08-2023 LDL Cholesterol,Calculated 86 mg/dL Normal 0-100 [facility] Comment on above: Order Comment: KAYLIE Erwin Comment use from ER Result Comment: LDL ATP III CLASSIFICATION LDL less than 100 mg/dL Optimal LDL 100-129 mg/dL Near or above optimal LDL 130-159 mg/dL Borderline high LDL 160-189 mg/dL High LDL greater than 189 mg/dL Very high Performed By: #### C MP, ETOH, CBC #### [facility] [address] Triglyceride w/Reflex 133 mg/dL Normal 0-149 [facility] Comment on above: Order Comment: KAYLIE Erwin Comment use from ER Result Comment: TRIG ATP III CLASSIFICATION TRIG less than 150 mg/dL Normal TRIG 150-199 mg/dL Borderline high TRIG 200-500 mg/dL High TRIG greater than 500 mg/dL Very high Standard traceable to the Center for Disease Conrtrol and Prevention (CDC) test method. Performed By: #### C MP, ETOH, CBC #### [facility] [address] [place] [id number] [facility] VLDL CHOLESTEROL 26 mg/dL Normal [facility] Comment on above: Order Comment: FASTI NG Y Comment use from ER Performed By: #### C MP, ETOH, CBC #### [address] Lymphocytes [#/volume] in Bl ood by Automated countOrdered By: Art Pa on 11-08-2023 Lymphocytes (Bld) [#/Vol] 2.5 10*3/uL Normal 1.00-4.8 [facility] Comment on above: Performed By: #### C MP, ETOH, CBC #### [address] Lymphocytes/100 leukocytes i n Blood by Automated countOrdered By: Art Pa on 11-08-2023 Lymphocytes/100 WBC (Bld) 22.0 % Normal . [facility] Comment on above: Performed By: #### C MP, ETOH, CBC #### [address] MCH [Entitic mass] by Automa hemalatha countOrdered By: Art Pa on 11-08-2023 MCH (RBC) [Entitic mass] 29.3 pg Normal 24.7-34.3 [facility] Comment on above: Performed By: #### C MP, ETOH, CBC #### [address] MCHC Auto (RBC) [Mass/Vol]Or dered By: Art Pa on 11-08-2023 MCHC (RBC) [Mass/Vol] 33.2 g/dL 32.0-35.0 [facility] MCV [Entitic volume] by Auto mated countOrdered By: Art Pa on 11-08-2023 MCV (RBC) [Entitic vol] 88.1 fL Normal 80-100 [facility] Comment on above: Performed By: #### C MP, ETOH, CBC #### [address] Monocyte distribution width [Entitic volume] in Blood by AutomatedOrdered By: Art Pa on 11-08-2023 Monocyte distribution width Auto (Bld) [Entitic vol] 17.72 % 0.00-20.00 [facility] Mucus [Presence] in Urine by AutomatedOrdered By: Art Pa on 11-08-2023 Mucus Auto Ql (U) Rare [LPF] [facility] Neutrophils [#/volume] in Bl ood by Automated countOrdered By: Art Pa on 11-08-2023 Neutrophils (Bld) [#/Vol] 7.9 10*3/uL High 1.8-7.7 [facility] Comment on above: Performed By: #### C MP, ETOH, CBC #### [facility] [address] Nitrite Test strip Ql (U)Ord ered By: Art Pa on 11-08-2023 Nitrite Ql (U) Negative Negative [facility] No Panel InformationOrdered By: Art Pa on 11-08-2023 Estimated GFR (CKD-EPI) > 60.0 mL/Min [facility] Creatinine Clearance (Chem 97.34 [facility] Nucleated erythrocytes [Pres ence] in Blood by Automated countOrdered By: Art Pa on 11-08-2023 Nucleated RBC Auto Ql (Bld) 0.0 /100{WBC} 0-0.5 [facility] Opiates [Presence] in Urine by Screen methodOrdered By: Art Pa on 11-08-2023 Opiates Screen Ql (U) Negative Negative [facility] Phencyclidine Screen Ql (U)O rdered By: Art Pa on 11-08-2023 Phencyclidine Ql (U) Negative Negative [facility] Platelet mean volume [Entiti c volume] in Blood by Automated countOrdered By: Art Pa on 11-08-2023 Platelet mean volume (Bld) [Entitic vol] 7.9 fL Normal 6.3-10.7 [facility] Comment on above: Performed By: #### C MP, ETOH, CBC #### [facility] [address] [place] [address] [place] Platelets [#/volume] in Bloo d by Automated countOrdered By: Art Pa on 11-08-2023 Platelets (Bld) [#/Vol] 286 10*3/uL Normal 150-450 [facility] Comment on above: Performed By: #### C MP, ETOH, CBC #### [address] Potassium [Moles/volume] in Serum or PlasmaOrdered By: Art Pa on 11-08-2023 Potassium [Moles/Vol] 4.1 mmol/L Normal 3.5-5.1 [facility] Comment on above: Performed By: #### C MP, ETOH, CBC #### [address] Protein Test strip (U) [Mass /Vol]Ordered By: Art Pa on 11-08-2023 Protein (U) [Mass/Vol] Negative Negative [place] Protein [Mass/volume] in Ser um or PlasmaOrdered By: Art Pa on 11-08-2023 Protein [Mass/Vol] 7.5 g/dL Normal 6.4-8.9 [facility] Comment on above: Performed By: #### C MP, ETOH, CBC #### [address] Serum globulin measurement b y calculation (mass/volume)Ordered By: Art Pa on 11-08-2023 Globulin (S) [Mass/Vol] 3.4 g/dL Normal [facility] Comment on above: Performed By: #### C MP, ETOH, CBC #### [address] Serum or plasma albumin/glob ulin mass ratioOrdered By: Art Pa on 11-08-2023 Albumin/Globulin [Mass ratio] 1.2 {ratio} Normal [facility] Comment on above: Performed By: #### C MP, ETOH, CBC #### [address] Serum or plasma anion gap de terminationOrdered By: Art Pa on 11-08-2023 Anion gap [Moles/Vol] 10.0 mmol/L Normal 6.0-15.0 [place] Comment on above: Performed By: #### C MP, ETOH, CBC #### [address] Serum or plasma high density lipoprotein (HDL) cholesterol measurementOrdered By: Geo Loomis on 11-08-2023 Cholesterol in HDL [Mass/Vol] 49 mg/dL Normal 23-92 [facility] Comment on above: HDL CHOL ATP-III CLA SSIFICATION Cardiovascular RiskHDL > or equal to 60 mg/dL LOWHDL < 40 mg/dL HIGH Order Comment: KAYLIE Erwin Comment use from ER Result Comment: HDL CHOL ATP-III CLASSIFICATION Cardiovascular Risk HDL > or equal to 60 mg/dL LOW HDL < 40 mg/dL HIGH Performed By: #### C MP, ETOH, CBC #### [facility] [address] Serum or plasma total choles terol/high density lipoprotein (HDL) cholesterol mass ratOrdered By: Geo Loomis on 11-08-2023 Cholesterol.total/[place] sterol in HDL [Mass ratio] 3.3 {ratio} Normal <5.0 [facility] Comment on above: Order Comment: KAYLIE Erwin Comment use from ER Performed By: #### C MP, ETOH, CBC #### [address] Sodium [Moles/volume] in Ser um or PlasmaOrdered By: Art Pa on 11-08-2023 Sodium [Moles/Vol] 136 mmol/L Normal 136-145 [facility] Comment on above: Performed By: #### C MP, ETOH, CBC #### [address] Specific gravity Test strip (U) [Rel density]Ordered By: Art Pa on 11-08-2023 Specific gravity (U) [Rel density] 1.018 1.001-1.030 [facility] Thyroid Stim Hormone w/Rflxo n 11-08-2023 Thyroid Stim Hormone w/Rflx 3.00 u[iU]/mL Normal 0.45-5.33 [facility] Comment on above: Order Comment: KAYLIE Erwin Comment use from ER Performed By: #### C MP, ETOH, CBC #### [place] [address] [place] Thyrotropin [Units/volume] i n Serum or PlasmaOrdered By: Geo Loomis on 11-08-2023 TSH Qn 3.00 m[IU]/L 0.45-5.33 [facility] Triglyceride [Mass/volume] i n Serum or PlasmaOrdered By: Geo Loomis on 11-08-2023 Triglyceride [Mass/Vol] 133 mg/dL 0-149 [facility] Comment on above: TRIG ATP III CLASSIF ICATIONTRIG less than 150 mg/dL NormalTRIG 150-199 mg/dL Borderline highTRIG 200-500 mg/dL High TRIG greater than 500 mg/dL Very highStandard traceable to the Center for Disease Conrtrol and Prevention (CDC) test method. Urea nitrogen [Mass/volume] in Serum or PlasmaOrdered By: Art Pa on 11-08-2023 Urea nitrogen [Mass/Vol] 13 mg/dL Normal 7-25 [facility] Comment on above: Performed By: #### C MP, ETOH, CBC #### [facility] [address] [place] [address] Urine Cultureon 11-08-2023 Bacteria identified Cx Nom (U) >100,000 colonies/ml mixed bacterial skin contaminants 2 Days PERFORMED BY: [place] [address] PATHOLOGIST COMMERCIAL SALES MANAGER DANNIE MOODY M.D. Normal [facility] Comment on above: Performed By: #### U HCG, CUU, ADDONUAPLUS, URDS #### [facility] [address] [place] [address] Urine appearanceOrdered By: Art Pa on 11-08-2023 Appearance (U) Clear Normal Clear [facility] Comment on above: Order Comment: Name Collection Type:: Clean-Voided Midstream Performed By: #### U HCG, CUU, ADDONUAPLUS, URDS #### [facility] [address] [place] [address] Urine culture routineOrdered By: Art Pa on 11-08-2023 Bacteria identified Cx Nom (U) 2 Days [facility] Urobilinogen Test strip (U) [Mass/Vol]Ordered By: Art Pa on 11-08-2023 Urobilinogen (U) [Mass/Vol] Normal mg/dL Normal [facility] Vitamin D 25 Hydroxy Totalon 11-08-2023 Vitamin D 25 Hydroxy Total 49.5 ng/mL Normal 30-100 [facility] Comment on above: Order Comment: KAYLIE Erwin Comment use from ER Result Comment: JAYSON MIN D STATUS 25(OH)VITAMIN D RANGE (ng/mL) Deficient <20 Insufficient 20 to <30 Sufficient 30 to 100 Reference: Marsha Hillman, Ez MULTANI, et al. Evaluation,treatment, and prevention of vitamin D deficiency; an Endocrine Society clinical practice guideline. JCEM. 2010; 96(7):1911-. PERFORMED BY: [place] [address] PATHOLOGIST COMMERCIAL SALES MANAGER DANNIE MOODY M.D. Performed By: #### C MP, ETOH, CBC #### [facility] [address] Vitamin D+Metabolites [Mass/ volume] in Serum or PlasmaOrdered By: Geo Loomis on 11-08-2023 Vitamin D+Metabolites [Mass/Vol] 49.5 ng/mL 30-100 [facility] Comment on above: VITAMIN D STATUS 25( [place])VITAMIN D RANGE (ng/mL) Deficient <20 Insufficient 20 to <30Sufficient 30 to 100Reference: Marsha Hillmna Bischoff-Ferrari HA, et al. Evaluation,treatment, and prevention of vitamin D deficiency; an Endocrine Society clinical practice guideline. JCEM. 2010; 96(7):1911-30. pH of Urine by Test stripOrd ered By: Art Pa on 11-08-2023 pH (U) 5.0 [pH] Normal 5.0-9.0 [facility] Comment on above: Order Comment: Name Collection Type:: Clean-Voided Midstream Performed By: #### U HCG, CUU, ADDONUAPLUS, URDS #### [facility] [address] [place] [address] [facility] Alanine aminotransferase [En zymatic activity/volume] in Serum or PlasmaOrdered By: Antolin Abarca on 05-24-2022 ALT [Catalytic activity/Vol] 15 U/L 7-52 [facility] Albumin [Mass/volume] in Ser um or Plasma by Bromocresol green (BCG) dye binding methoOrdered By: Antolin Abarca on 05-24-2022 Albumin BCG dye [Mass/Vol] 4.0 g/dL 3.5-5.7 [facility] Alkaline phosphatase [Enzyma tic activity/volume] in Serum or PlasmaOrdered By: Antolin Abarca on 05-24-2022 ALP [Catalytic activity/Vol] 61 U/L 34-104 [facility] Amphetamine Screen Ql (U)Ord ered By: Antolin Abarca on 05-24-2022 Amphetamines Ql (U) Negative Negative [facility] Aspartate aminotransferase [ Enzymatic activity/volume] in Serum or PlasmaOrdered By: Antolin Abarca on 05-24-2022 AST [Catalytic activity/Vol] 19 U/L 13-39 [facility] Automated epithelial cells c ount in urine sediment (number/area)Ordered By: Antolin Abarca on 05-24-2022 Epithelial cells Auto (Urine sed) [#/Area] Rare [HPF] 0-2 [facility] Automated erythrocytes count in urine sediment (number/area)Ordered By: Antolin Abarca on 05-24-2022 RBC Auto (Urine sed) [#/Area] 1-2 [HPF] 0-4 [facility] Automated leukocytes count i n urine sediment (number/area)Ordered By: Antolin Abarca on 05-24-2022 WBC Auto (Urine sed) [#/Area] 1-2 [HPF] 0-4 [facility] Automated urine hyaline cast s count (number/volume)Ordered By: Antolin Abarca on 05-24-2022 Hyaline casts Auto (U) [#/Vol] Rare [LPF] 0-1 [facility] Barbiturates [Presence] in U rine by Screen methodOrdered By: Antolin Abarca on 05-24-2022 Barbiturates Screen Ql (U) Negative Negative [facility] Basophils Auto (Bld) [#/Vol] Ordered By: Antolin Abarca on 05-24-2022 Basophils (Bld) [#/Vol] 0.0 10*3/uL 0.0-0.2 [facility] Basophils/100 WBC Auto (Bld) Ordered By: Antolin Abarca on 05-24-2022 Basophils/100 WBC (Bld) 0.4 % . [facility] Benzodiazepines Screen Ql (U )Ordered By: Antolin Abarca on 05-24-2022 Benzodiazepines Ql (U) Negative Negative [place] Benzoylecgonine [Presence] i n Urine by Screen methodOrdered By: Antolin Abarca on 05-24-2022 Benzoylecgonine Screen Ql (U) Negative Negative [facility] Bilirubin Test strip Ql (U)O rdered By: Antolin Abarca on 05-24-2022 Bilirubin Ql (U) Negative Negative [facility] Bilirubin.total [Mass/volume ] in Serum or PlasmaOrdered By: Antolin Abarca on 05-24-2022 Bilirubin [Mass/Vol] 0.3 mg/dL 0.3-1.0 [facility] COVID-19 SOFIAOrdered By: Hay Abarca on 05-24-2022 SARS-CoV+SARS-CoV-2 (COVID-19) Ag IA.rapid Ql (Resp) Negative Negative [facility] Comment on above: This is a duplicate Rayna SARS Antigen (SKYLA) result to be used for statistical tracking purpose only. Calcium [Mass/volume] in Ser um or PlasmaOrdered By: Antolin Abarca on 05-24-2022 Calcium [Mass/Vol] 9.3 mg/dL 8.6-10.3 [facility] Cannabinoids [Presence] in U rine by Screen methodOrdered By: Antolin Abarca on 05-24-2022 Cannabinoids Screen Ql (U) Negative Negative [facility] Comment on above: These are unconfirme d results and should not be used for legal purposes. Drug Cut-Off Concentration: AMPH 1000 ng/mL SANDEEP 200 ng/mL JERSON 200 ng/mL COCM 300 ng/mL OP 300 ng/mL PCP 25 ng/mL THC 20 ng/mL Carbon dioxide, total [Moles /volume] in Serum or PlasmaOrdered By: Antolin Abarca on 05-24-2022 CO2 [Moles/Vol] 20.9 mmol/L 21.0-31.0 [facility] Chloride [Moles/volume] in S monse or PlasmaOrdered By: Antolin Abarca on 05-24-2022 Chloride [Moles/Vol] 108 mmol/L 98-107 [facility] Color Auto (U)Ordered By: Hay Abarca on 05-24-2022 Color (U) Yellow Yellow [facility] Creatinine [Mass/volume] in Serum or PlasmaOrdered By: Antolin Abarca on 05-24-2022 Creatinine [Mass/Vol] 0.79 mg/dL 0.60-1.20 [facility] Eosinophils Auto (Bld) [#/Vo l]Ordered By: Antolin Abarca on 05-24-2022 Eosinophils (Bld) [#/Vol] 0.3 10*3/uL 0.0-0.45 [facility] Eosinophils/100 WBC Auto (Bl d)Ordered By: Antolin Abarca on 05-24-2022 Eosinophils/100 WBC (Bld) 4.2 % . [facility] Erythrocyte distribution wid th Auto (RBC) [Ratio]Ordered By: Antolin Abarca on 05-24-2022 Erythrocyte distribution width (RBC) [Ratio] 15.6 % 11.9-15.3 [facility] Ethanol [Mass/volume] in Ser um or PlasmaOrdered By: Antolin Abarca on 05-24-2022 Ethanol [Mass/Vol] 163 mg/dL [facility] Ethanol [Mass/Vol] 0.163 % [facility] Globulin Calc (S) [Mass/Vol] Ordered By: Antolin Abarca on 05-24-2022 Globulin (S) [Mass/Vol] 2.8 g/dL [facility] Glucose [Mass/volume] in Ser um or PlasmaOrdered By: Antolin Abarca on 05-24-2022 Glucose [Mass/Vol] 83 mg/dL 74-109 [facility] Comment on above: ADA recommended refe rence rangeRandom Glucose Reference Range is dependent on time and content of last meal. Glucose of more than 200 mg/dL in a nonstressed, ambulatory subject supports the diagnosis of Diabetes Mellitus. HCG ( test) IA.rapi d Ql (U)Ordered By: Antolin Abarca on 05-24-2022 HCG ( test) Ql (U) Negative [facility] Hematocrit Auto (Bld) [Volum e fraction]Ordered By: Antolin Abarca on 05-24-2022 Hematocrit (Bld) [Volume fraction] 40.1 % 34.0-46.4 [facility] Hemoglobin [Mass/volume] in BloodOrdered By: Antolin Abarca on 05-24-2022 Hemoglobin (Bld) [Mass/Vol] 13.2 g/dL 11.8-15.4 [facility] Ketones Auto test strip (U) [Mass/Vol]Ordered By: Antolin Abarca on 05-24-2022 Ketones (U) [Mass/Vol] Negative Negative [facility] Laboratory - Chemistry and C hemistry - challengeOrdered By: Antolin Abarca on 05-24-2022 GFR/1.73 sq M.predicted MDRD (S/P/Bld) [Vol rate/Area] mL/min/{1.73_m2} [facility] Leukocytes [#/volume] correc hemalatha for nucleated erythrocytes in Blood by Automated counOrdered By: Antolin Abarca on 05-24-2022 WBC corrected for nucl RBC Auto (Bld) [#/Vol] 7.0 10*3/uL 3.8-11.6 [facility] Lymphocytes Auto (Bld) [#/Vo l]Ordered By: Antolin Abarca on 05-24-2022 Lymphocytes (Bld) [#/Vol] 2.1 10*3/uL 1.00-4.8 [facility] Lymphocytes/100 WBC Auto (Bl d)Ordered By: Antolin Abarca on 05-24-2022 Lymphocytes/100 WBC (Bld) 29.2 % . [facility] MCH Auto (RBC) [Entitic mass ]Ordered By: Antolin Abarca on 05-24-2022 MCH (RBC) [Entitic mass] 29.2 pg 24.7-34.3 [facility] MCHC Auto (RBC) [Mass/Vol]Or dered By: Antolin Abarca on 05-24-2022 MCHC (RBC) [Mass/Vol] 33.0 g/dL 32.0-35.0 [facility] MCV Auto (RBC) [Entitic vol] Ordered By: Antolin Abarca on 05-24-2022 MCV (RBC) [Entitic vol] 88.6 fL 80-100 [facility] Monocyte distribution width [Entitic volume] in Blood by AutomatedOrdered By: Antolin Abarca on 05-24-2022 Monocyte distribution width Auto (Bld) [Entitic vol] 17.73 % 0.00-20.00 [facility] Monocytes Auto (Bld) [#/Vol] Ordered By: Antolin Abarca on 05-24-2022 Monocytes (Bld) [#/Vol] 0.6 10*3/uL 0.0-0.8 [facility] Monocytes/100 WBC Auto (Bld) Ordered By: Antolin Abarca on 05-24-2022 Monocytes/100 WBC (Bld) 8.2 % . [facility] Neutrophils Auto (Bld) [#/Vo l]Ordered By: Antolin Abarca on 05-24-2022 Neutrophils (Bld) [#/Vol] 4.1 10*3/uL 1.8-7.7 [facility] Neutrophils/100 WBC Auto (Bl d)Ordered By: Antolin Abarca on 05-24-2022 Neutrophils/100 WBC (Bld) 58.0 % . [facility] Nitrite Test strip Ql (U)Ord ered By: Antolin Abarca on 05-24-2022 Nitrite Ql (U) Negative Negative [facility] No Panel InformationOrdered By: Antolin Abarca on 05-24-2022 Pharmacy Creatinine Clearance (Chem 107.39 [facility] SARS Antigen (LFIA) [facility] Nucleated erythrocytes [Pres ence] in Blood by Automated countOrdered By: Antolin Abarca on 05-24-2022 Nucleated RBC Auto Ql (Bld) 0.0 /100{WBC} 0-0.5 [facility] Opiates [Presence] in Urine by Screen methodOrdered By: Antolin Abarca on 05-24-2022 Opiates Screen Ql (U) Negative Negative [facility] Phencyclidine Screen Ql (U)O rdered By: Antolin Abarca on 05-24-2022 Phencyclidine Ql (U) Negative Negative [facility] Platelet mean volume Auto (B ld) [Entitic vol]Ordered By: Antolin Abarca on 05-24-2022 Platelet mean volume (Bld) [Entitic vol] 7.3 fL 6.3-10.7 [facility] Platelets Auto (Bld) [#/Vol] Ordered By: Antolin Abarca on 05-24-2022 Platelets (Bld) [#/Vol] 285 10*3/uL 150-450 [facility] Potassium [Moles/volume] in Serum or PlasmaOrdered By: Antolin Abarca on 05-24-2022 Potassium [Moles/Vol] 4.4 mmol/L 3.5-5.1 [facility] Protein Auto test strip (U) [Mass/Vol]Ordered By: Antolin Abarca on 05-24-2022 Protein (U) [Mass/Vol] Negative Negative [place] Protein [Mass/volume] in Ser um or PlasmaOrdered By: Antolin Abarca on 05-24-2022 Protein [Mass/Vol] 6.8 g/dL 6.4-8.9 [facility] RBC Auto (Bld) [#/Vol]Ordere d By: Antolin Abarca on 05-24-2022 RBC (Bld) [#/Vol] 4.53 10*6/uL 3.60-5.00 [facility] Serum or plasma albumin/glob ulin mass ratioOrdered By: Antolin Abarca on 05-24-2022 Albumin/Globulin [Mass ratio] 1.4 {ratio} [facility] Serum or plasma anion gap de terminationOrdered By: Antolin Abarca on 05-24-2022 Anion gap [Moles/Vol] 13.5 mmol/L 6.0-15.0 [place] Sodium [Moles/volume] in Ser um or PlasmaOrdered By: Antolin Abarca on 05-24-2022 Sodium [Moles/Vol] 138 mmol/L 136-145 [facility] Specific gravity Auto test s trip (U) [Rel density]Ordered By: Antolin Abarca on 05-24-2022 Specific gravity (U) [Rel density] 1.000 1.001-1.030 [facility] Urea nitrogen [Mass/volume] in Serum or PlasmaOrdered By: Antolin Abarca on 05-24-2022 Urea nitrogen [Mass/Vol] 8 mg/dL 7-25 [facility] Urine bacteria detection by automated methodOrdered By: Antolin Abarca on 05-24-2022 Bacteria Auto Ql (U) Rare None Seen [facility] Urine clarity by refractomet ry automatedOrdered By: Antolin Abarca on 05-24-2022 Clarity Refractometry automated (U) Clear Clear [facility] Urine glucose measurement by automated test strip (mass/volume)Ordered By: Antolin Abarca on 05-24-2022 Glucose Auto test strip (U) [Mass/Vol] Normal mg/dL Normal [facility] Urine hemoglobin detection b y automated test stripOrdered By: Antolin Abarca on 05-24-2022 Hemoglobin Auto test strip Ql (U) 2+ Negative [facility] Urine leukocyte esterase det ection by automated test stripOrdered By: Antolin Abarca on 05-24-2022 Leukocyte esterase Auto test strip Ql (U) 2+ Negative [facility] Urobilinogen Auto test strip (U) [Mass/Vol]Ordered By: Antolin Abarca on 05-24-2022 Urobilinogen (U) [Mass/Vol] Normal mg/dL Normal [facility] WBC Auto (Bld) [#/Vol]Ordere d By: Antolin Abarca on 05-24-2022 WBC (Bld) [#/Vol] 7.0 10*3/uL 3.8-11.6 [facility] pH Auto test strip (U)Ordere d By: Antolin Abarca on 05-24-2022 pH (U) 6.0 [pH] 5.0-9.0 [facility] Cholesterol [Mass/volume] in Serum or PlasmaOrdered By: Geo Loomis on 05-11-2022 Cholesterol [Mass/Vol] 154 mg/dL 140-200 [place] Comment on above: Chol less than 200 m g/dl low riskChol 201-239 mg/dl borderline riskChol 240 mg/dl and greater high risk Cholesterol in LDL Calc [Mas s/Vol]Ordered By: Geo Loomis on 05-11-2022 Cholesterol in LDL [Mass/Vol] 76 mg/dL 0-100 [facility] Comment on above: LDL ATP III CLASSIFI CATIONLDL less than 100 mg/dL OptimalLDL 100-129 mg/dL Near or above optimalLDL 130-159 mg/dL Borderline highLDL 160-189 mg/dL HighLDL greater than 189 mg/dL Very high Cholesterol in VLDL Calc [Ma ss/Vol]Ordered By: Geo Loomis on 05-11-2022 Cholesterol in VLDL [Mass/Vol] 24 mg/dL [facility] Serum or plasma high density lipoprotein (HDL) cholesterol measurementOrdered By: Geo Loomis on 05-11-2022 Cholesterol in HDL [Mass/Vol] 54 mg/dL 35-85 [facility] Comment on above: HDL CHOL ATP-III CLA SSIFICATION Cardiovascular RiskHDL > or equal to 60 mg/dL LOWHDL < 40 mg/dL HIGH Serum or plasma total choles terol/high density lipoprotein (HDL) cholesterol mass ratOrdered By: Geo Loomis on 05-11-2022 Cholesterol.total/Polina sterol in HDL [Mass ratio] 2.9 {ratio} <5.0 [facility] Thyrotropin [Units/volume] i n Serum or PlasmaOrdered By: Geo Loomis on 05-11-2022 TSH Qn 1.87 m[IU]/L 0.45-5.33 [facility] Triglyceride [Mass/volume] i n Serum or PlasmaOrdered By: Geo Loomis on 05-11-2022 Triglyceride [Mass/Vol] 122 mg/dL 0-149 [facility] Comment on above: TRIG ATP III CLASSIF ICATIONTRIG less than 150 mg/dL NormalTRIG 150-199 mg/dL Borderline highTRIG 200-500 mg/dL High TRIG greater than 500 mg/dL Very highStandard traceable to the Center for Disease Conrtrol and Prevention (CDC) test method. Vitamin D+Metabolites [Mass/ volume] in Serum or PlasmaOrdered By: Geo Loomis on 05-11-2022 Vitamin D+Metabolites [Mass/Vol] 22.0 ng/mL 30-100 [facility] Comment on above: VITAMIN D STATUS [...] 05-10-2022 ALT [Catalytic activity/Vol] 17 U/L 7-52 [facility] Albumin [Mass/volume] in Ser um or Plasma by Bromocresol green (BCG) dye binding methoOrdered By: Antolin Abarca on 05-10-2022 Albumin BCG dye [Mass/Vol] 4.0 g/dL 3.5-5.7 [facility] Alkaline phosphatase [Enzyma tic activity/volume] in Serum or PlasmaOrdered By: Antolin Abarca on 05-10-2022 ALP [Catalytic activity/Vol] 63 U/L 34-104 [facility] Amphetamine Screen Ql (U)Ord ered By: Antolin Abarca on 05-10-2022 Amphetamines Ql (U) Negative Negative [facility] Aspartate aminotransferase [ Enzymatic activity/volume] in Serum or PlasmaOrdered By: Antolin Abarca on 05-10-2022 AST [Catalytic activity/Vol] 17 U/L 13-39 [facility] Automated erythrocytes count in urine sediment (number/area)Ordered By: Antolin Abarca on 05-10-2022 RBC Auto (Urine sed) [#/Area] 20-49 [HPF] 0-4 [facility] Automated leukocytes count i n urine sediment (number/area)Ordered By: Antolin Abarca on 05-10-2022 WBC Auto (Urine sed) [#/Area] 20-49 [HPF] 0-4 [facility] Automated urine hyaline cast s count (number/volume)Ordered By: Antolin Abarca on 05-10-2022 Hyaline casts Auto (U) [#/Vol] None seen [LPF] 0-1 [facility] Barbiturates [Presence] in U rine by Screen methodOrdered By: Antolin Abarca on 05-10-2022 Barbiturates Screen Ql (U) Negative Negative [facility] Basophils Auto (Bld) [#/Vol] Ordered By: Antolin Abarca on 05-10-2022 Basophils (Bld) [#/Vol] 0.1 10*3/uL 0.0-0.2 [facility] Basophils/100 WBC Auto (Bld) Ordered By: Antolin Abarca on 05-10-2022 Basophils/100 WBC (Bld) 0.8 % . [facility] Benzodiazepines Screen Ql (U )Ordered By: Antolin Abarca on 05-10-2022 Benzodiazepines Ql (U) Negative Negative [facility] Benzoylecgonine [Presence] i n Urine by Screen methodOrdered By: Antolin Abarca on 05-10-2022 Benzoylecgonine Screen Ql (U) Negative Negative [facility] Bilirubin Test strip Ql (U)O rdered By: Antolin Abarca on 05-10-2022 Bilirubin Ql (U) Negative Negative [facility] Bilirubin.total [Mass/volume ] in Serum or PlasmaOrdered By: Antolin Abarca on 05-10-2022 Bilirubin [Mass/Vol] 0.9 mg/dL 0.3-1.0 [facility] Calcium [Mass/volume] in Ser um or PlasmaOrdered By: Antolin Abarca on 05-10-2022 Calcium [Mass/Vol] 9.5 mg/dL 8.6-10.3 [facility] Cannabinoids [Presence] in U rine by Screen methodOrdered By: Antolin Abarca on 05-10-2022 Cannabinoids Screen Ql (U) Negative Negative [facility] Comment on above: These are unconfirme d results and should not be used for legal purposes. Drug Cut-Off Concentration: AMPH 1000 ng/mL SANDEEP 200 ng/mL EJRSON 200 ng/mL COCM 300 ng/mL OP 300 ng/mL PCP 25 ng/mL THC 20 ng/mL Carbon dioxide, total [Moles /volume] in Serum or PlasmaOrdered By: Antolin Abarca on 05-10-2022 CO2 [Moles/Vol] 28.1 mmol/L 21.0-31.0 [facility] Casts typing in urine sedime nt by light microscopyOrdered By: Antolin Abarca on 05-10-2022 Casts LM Nom (Urine sed) None seen [LPF] None Seen [facility] Chloride [Moles/volume] in S monse or PlasmaOrdered By: Antolin Abarca on 05-10-2022 Chloride [Moles/Vol] 103 mmol/L 98-107 [facility] Color Auto (U)Ordered By: Hay Abarca on 05-10-2022 Color (U) Dark yellow Yellow [facility] Creatinine [Mass/volume] in Serum or PlasmaOrdered By: Antolin Abarca on 05-10-2022 Creatinine [Mass/Vol] 0.81 mg/dL 0.60-1.20 [facility] Eosinophils Auto (Bld) [#/Vo l]Ordered By: Antolin Abarca on 05-10-2022 Eosinophils (Bld) [#/Vol] 0.2 10*3/uL 0.0-0.45 [facility] Eosinophils/100 WBC Auto (Bl d)Ordered By: Antolin Abarca on 05-10-2022 Eosinophils/100 WBC (Bld) 1.9 % . [facility] Erythrocyte distribution wid th Auto (RBC) [Ratio]Ordered By: Antolin Abarca on 05-10-2022 Erythrocyte distribution width (RBC) [Ratio] 15.1 % 11.9-15.3 [facility] Ethanol [Mass/volume] in Ser um or PlasmaOrdered By: Antolin Abarca on 05-10-2022 Ethanol [Mass/Vol] mg/dL [facility] Ethanol [Mass/Vol] TNP [facility] Comment on above: Test not performed Globulin Calc (S) [Mass/Vol] Ordered By: Antolin Abarca on 05-10-2022 Globulin (S) [Mass/Vol] 2.9 g/dL [facility] Glucose [Mass/volume] in Ser um or PlasmaOrdered By: Antolin Abarca on 05-10-2022 Glucose [Mass/Vol] 87 mg/dL 74-109 [facility] Comment on above: ADA recommended refe rence rangeRandom Glucose Reference Range is dependent on time and content of last meal. Glucose of more than 200 mg/dL in a nonstressed, ambulatory subject supports the diagnosis of Diabetes Mellitus. HCG ( test) IA.rapi d Ql (U)Ordered By: Antolin Abarca on 05-10-2022 HCG ( test) Ql (U) Negative [facility] Hematocrit Auto (Bld) [Volum e fraction]Ordered By: Antolin Abarca on 05-10-2022 Hematocrit (Bld) [Volume fraction] 42.9 % 34.0-46.4 [facility] Hemoglobin [Mass/volume] in BloodOrdered By: Antolin Abarca on 05-10-2022 Hemoglobin (Bld) [Mass/Vol] 14.1 g/dL 11.8-15.4 [facility] Ketones Auto test strip (U) [Mass/Vol]Ordered By: Antolin Abarca on 05-10-2022 Ketones (U) [Mass/Vol] Trace Negative Fi [facility] Laboratory - Chemistry and C hemistry - challengeOrdered By: Antolin Abarca on 05-10-2022 GFR/1.73 sq M.predicted MDRD (S/P/Bld) [Vol rate/Area] mL/min/{1.73_m2} [facility] Leukocytes [#/volume] correc hemalatha for nucleated erythrocytes in Blood by Automated counOrdered By: Antolin Abarca on 05-10-2022 WBC corrected for nucl RBC Auto (Bld) [#/Vol] 10.7 10*3/uL 3.8-11.6 [facility] Lymphocytes Auto (Bld) [#/Vo l]Ordered By: Antolin Abarca on 05-10-2022 Lymphocytes (Bld) [#/Vol] 2.3 10*3/uL 1.00-4.8 [facility] Lymphocytes/100 WBC Auto (Bl d)Ordered By: Antolin Abarca on 05-10-2022 Lymphocytes/100 WBC (Bld) 21.1 % . [facility] MCH Auto (RBC) [Entitic mass ]Ordered By: Antolin Abarca on 05-10-2022 MCH (RBC) [Entitic mass] 29.1 pg 24.7-34.3 [facility] MCHC Auto (RBC) [Mass/Vol]Or dered By: Antolin Abarca on 05-10-2022 MCHC (RBC) [Mass/Vol] 32.9 g/dL 32.0-35.0 [facility] MCV Auto (RBC) [Entitic vol] Ordered By: Antolin Abarca on 05-10-2022 MCV (RBC) [Entitic vol] 88.3 fL 80-100 [facility] Monocyte distribution width [Entitic volume] in Blood by AutomatedOrdered By: Antolin Abarca on 05-10-2022 Monocyte distribution width Auto (Bld) [Entitic vol] 18.66 % 0.00-20.00 [facility] Monocytes Auto (Bld) [#/Vol] Ordered By: Antolin Abarca on 05-10-2022 Monocytes (Bld) [#/Vol] 0.9 10*3/uL 0.0-0.8 [facility] Monocytes/100 WBC Auto (Bld) Ordered By: Antolin Abarca on 05-10-2022 Monocytes/100 WBC (Bld) 8.7 % . [facility] Neutrophils Auto (Bld) [#/Vo l]Ordered By: Antolin Abarca on 05-10-2022 Neutrophils (Bld) [#/Vol] 7.2 10*3/uL 1.8-7.7 [facility] Neutrophils/100 WBC Auto (Bl d)Ordered By: Antolin Abarca on 05-10-2022 Neutrophils/100 WBC (Bld) 67.5 % . [facility] Nitrite Test strip Ql (U)Ord ered By: Antolin Abarca on 05-10-2022 Nitrite Ql (U) Negative Negative [facility] No Panel InformationOrdered By: Antolin Abarca on 05-10-2022 Pharmacy Creatinine Clearance (Chem 102.62 [facility] Nucleated erythrocytes [Pres ence] in Blood by Automated countOrdered By: Antolin Abarca on 05-10-2022 Nucleated RBC Auto Ql (Bld) 0.0 /100{WBC} 0-0.5 [facility] Opiates [Presence] in Urine by Screen methodOrdered By: Antolin Abarca on 05-10-2022 Opiates Screen Ql (U) Negative Negative [facility] Phencyclidine Screen Ql (U)O rdered By: Antolin Abarca on 05-10-2022 Phencyclidine Ql (U) Negative Negative [facility] Platelet mean volume Auto (B ld) [Entitic vol]Ordered By: Antolin Abarca on 05-10-2022 Platelet mean volume (Bld) [Entitic vol] 6.8 fL 6.3-10.7 [facility] Platelets Auto (Bld) [#/Vol] Ordered By: Antolin Abarca on 05-10-2022 Platelets (Bld) [#/Vol] 267 10*3/uL 150-450 [facility] Potassium [Moles/volume] in Serum or PlasmaOrdered By: Antolin Abarca on 05-10-2022 Potassium [Moles/Vol] 4.7 mmol/L 3.5-5.1 [facility] Protein Auto test strip (U) [Mass/Vol]Ordered By: Antolin Abarca on 05-10-2022 Protein (U) [Mass/Vol] 30 mg/dL Negative [place] Protein [Mass/volume] in Ser um or PlasmaOrdered By: Antolin Abarca on 05-10-2022 Protein [Mass/Vol] 6.9 g/dL 6.4-8.9 [facility] RBC Auto (Bld) [#/Vol]Ordere d By: Antolin Abarca on 05-10-2022 RBC (Bld) [#/Vol] 4.86 10*6/uL 3.60-5.00 [facility] Serum or plasma albumin/glob ulin mass ratioOrdered By: Antolin Abarca on 05-10-2022 Albumin/Globulin [Mass ratio] 1.4 {ratio} [facility] Serum or plasma anion gap de terminationOrdered By: Antolin Abarca on 05-10-2022 Anion gap [Moles/Vol] 9.6 mmol/L 6.0-15.0 [facility] Sodium [Moles/volume] in Ser um or PlasmaOrdered By: Antolin Abarca on 05-10-2022 Sodium [Moles/Vol] 136 mmol/L 136-145 [facility] Specific gravity Auto test s trip (U) [Rel density]Ordered By: Antolin Abarca on 05-10-2022 Specific gravity (U) [Rel density] 1.028 1.001-1.030 [facility] Squamous epithelial cells de tection in urine sediment by light microscopyOrdered By: Antolin Abarca on 05-10-2022 Epithelial cells.squamous LM Ql (Urine sed) 3-4 [HPF] 0-2 [facility] Urea nitrogen [Mass/volume] in Serum or PlasmaOrdered By: Antolin Abarca on 03-07-2023 Urea nitrogen [Mass/Vol] 11 mg/dL 7-25 [facility] Urine bacteria detection by automated methodOrdered By: Antolin Abarca on 05-10-2022 Bacteria Auto Ql (U) 1+ None Seen [facility] Urine clarity by refractomet ry automatedOrdered By: Antolin Abarca on 05-10-2022 Clarity Refractometry automated (U) Cloudy Clear [facility] Urine culture routineOrdered By: Antolin Abarca on 05-10-2022 Bacteria identified Cx Nom (U) 2 Days [facility] Urine glucose measurement by automated test strip (mass/volume)Ordered By: Antolin Abarca on 05-10-2022 Glucose Auto test strip (U) [Mass/Vol] Normal mg/dL Normal [facility] Urine hemoglobin detection b y automated test stripOrdered By: Antolin Abarca on 05-10-2022 Hemoglobin Auto test strip Ql (U) 2+ Negative [facility] Urine leukocyte esterase det ection by automated test stripOrdered By: Antolin Abarca on 05-10-2022 Leukocyte esterase Auto test strip Ql (U) 3+ Negative [facility] Urobilinogen Auto test strip (U) [Mass/Vol]Ordered By: Antolin Abarca on 05-10-2022 Urobilinogen (U) [Mass/Vol] Normal mg/dL Normal [facility] WBC Auto (Bld) [#/Vol]Ordere d By: Antolin Abarca on 05-10-2022 WBC (Bld) [#/Vol] 10.7 10*3/uL 3.8-11.6 [facility] pH Auto test strip (U)Ordere d By: Antolin Abarca on 05-10-2022 pH (U) 6.0 [pH] 5.0-9.0 [facility] Covid-19 PCR (CVDTBH)on SARS-CoV-2 (COVID-19) RNA PITO+probe Ql (Unsp spec) Detected Abnormal NOT DETECTED [facility] Comment on above: Result Comment: This test is not yet approved or cleared by the [place] FDA. When there are no FDA-approved or cleared tests available, and other criteria are met, FDA can make tests available under an emergency access mechanism called an Emergency Use Authorization (EUA). The EUA for this test is supported by the [place] of Health and Human Service's (HHS's) declaration [...] Performed By: #### L IPA, CMP #### [facility] [address] [place] [address] Dr. Toy Macario INFLUENZA A AND B AGon 03-13 INFLUANEGH SEE BELOW Normal [facility] Comment on above: Result Comment: Nega tive for Flu A protein angiten. Infection due to Flu A cannot be ruled out. Flu A angiten in the sample may be below the detection limit of the test. Performed By: #### C MP, LIPA #### [facility] [address] [place] [address] Dr. Toy Macario INFLUBNEGH SEE BELOW Normal [facility] Comment on above: Result Comment: Nega tive for Flu B protein antigen. Infection due to Flu B cannot be ruled out. Flu B antigen in the sample may be below the detection limit of the test. Performed By: #### C MP, LIPA #### [facility] [address] [place] [address] Dr. Toy Macario INFLUENZA A AG Negative Normal NEGATIVE SEE COMMENT [facility] Comment on above: Performed By: #### C MP, LIPA #### [facility] [address] [place] [address] Dr. Toy Macario INFLUENZA B AG Negative Normal NEGATIVE SEE COMMENT [facility] Comment on above: Performed By: #### C MP, LIPA #### [facility] [address] [place] [address] Dr. Toy Macario XR CHEST 1 Von [...] URIEL SPIVEY Date: 2022-03-13 15:46 Normal [facility] Progress Noteson 02-14-2022 [employer] Authentication Interface Message Text This encounter was opened in error. Patient was a No-Show. Please disregard. Called, directly to busy signal. Dennis Sarmiento MD Normal [facility] Progress Noteson 09-02-2021 Professional Tutor Authentication Interface Message Text TUMOR BOARD NOTE [...] and Staging Information: SPECIMEN FOR SURGICAL PATH: [id number] Order: [id number] Collected 07/30/2021 15:54 ??? Status: Final result ??? Visible to patient: Yes (not seen) ??? Dx: Liver cyst; Cyst of gallbladder ??? 0 Result Notes ??? Component ??? Case Report Surgical Pathology Report ? Case: [id number] ? Authorizing Provider: ???Dennis Sarmiento MD ? Collected: ? 07/30/2021 1554 ? Ordering Location: ? [facility] Main OR ?Received: ? 08/03/2021 1030 ? [...] lymph nodes or masses grossly. ??? Sections: ???Parts Person ??? A1. ???Fibrotic tissue (X) ? B. [...] tumor, it is inked green. ??? Sections: ???Parts Person ??? B1. ???Cystic lesion, fibrotic area (X) [...] M.D ? Clinical Information ??? [place]ing [place] [facility] [place] Specimen Collected: 07/30/21 15:54 Last Resulted: 08/05/21 08:46 ??? Order Details ??? View Encounter ??? Lab and Collection Details ??? Routing ??? Result History ? Scans on Order [id number] ??? Document on 08/05/2021 ???8:46 AM by Marc Ricketts, Treatment Recommendations and NCCN: Plan no surgical in (more content not included)... Normal [email or web address] Progress Noteson 08-24-2021 Professional Tutor Authentication Interface Message Text Patient was identified by name and date of . Narda Mercedes Patient at risk for falls:No Falls Risk protocol implemented: No Normal [facility] Progress Noteson 08-16-2021 Professional Tutor Authentication Interface Message Text Phone numbers Preferred Documentation: Mode: Telephone Patient Patient Work Phone: Patient Cell Preferred phone: [phone] Consent: I confirmed patient understanding of the risks and benefits of telehealth visits and obtained consent to proceed with the telehealth visit. Location of Patient: Home of patient Surgery Follow Up Feeling well since surgery. Still hurting but she is starting to feel better. [facility] week for staple removal. SPECIMEN FOR SURGICAL PATH: [id number] Order: [id number] Collected 07/30/2021 15:54 ??? Status: Final result ??? Visible to patient: Yes (not seen) ??? Dx: Liver cyst; Cyst of gallbladder ??? 0 Result Notes Component Case Report Surgical Pathology Report ? Case: [id number] ? Authorizing Provider: ???Dennis Sarmiento MD ? [...] lymph nodes or masses grossly. ??? Sections: Parts Person ??? A1. Fibrotic tissue (X) ? B. [...] tumor, it is inked green. ??? Sections: Parts Person ??? B1. Cystic lesion, fibrotic area (X) [...] Ivey M.D ? Clinical Information Resulting Agency [facility] [place] Specimen Collected: 07/30/21 15:54 Last Resulted: 08/05/21 08:46 Order Details ??? View Encounter ??? Lab and Collection Details ??? Routing ??? Result History ??? Scans on Order [id number] Document on 08/05/2021 ???8:46 AM by Marc Ricketts MD ??? 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 Follow up in 6 months with a televisit in person if needed. Dennis Sarmiento MD, FA (more content not included)... Normal [facility] CYTOLOGY FLUIDOrdered By: Kerwin Ram on 08-04-2021 Appearance (U) Mucoid [facility] Work Phone: Case Report Medical Cytology Report Case: [id number] Authorizing Provider: Dennis Sarmiento MD Collected: 07/30/2021 1619 Ordering Location: [facility] Main OR Received: 08/03/2021 0855 Pathologist: Ting Ram MD Specimen: Fluid, Cyst (Cytology), liver cyst fluid [facility] Work Phone: Cell Block [id number] XG Hlv3gkx3NalLHxsFGuVRhq lKRwmdYkmu14zKA1wL36SK 3lJWQnAoM5GYYjwgU8Fie4 SIYlHSZjmNTjG428d5jbu6 uvvwFkwBA1nFueTOIcnzhc UsT1ADorWVGbgwxfRRg3IK jdBWLsmOW7QCSyfJFbZ3Kq HYExVH3ewlk3RCL1QPkmSE TwKiN0FYMcqEGkRSSxeUmz TJdve472DSF7OlWkEVZpqg VbyRaotH6uBzToMVWLsV2e ZCwgZmlicmluLCBncmFudW xhciBkZWJyaXMsIHJhcmUg xFSppi8qbSXmPNKsYLMeNY BkZWdlbmVyYXRlZCBpbmZs HB9sDDKncqloO8AghTZfUO Bhcn0= [facility] Work Phone: Clinical Information [facility] Work Phone: Color (U) Red [facility] Work Phone: Final Diagnosis [id number] bG FuZzEwMzNcZnRuYmpcdWMx IHtccnRmMVxlcGljOTkwMV gegsEiLOBjwJAcT9Iacvrp ALxlQC9tNG5btPmfoLAseO GkIXIcUiUxa6mft419uLRc y9vnPGZUklwepZm1dFxnW3 3pt4S2ObguQ18jpAMiBQN4 KFMbJXTnnGXxVVDkEDN4ZX HljDBoT9bgJNQtKO2wpqrd XDwiZSnmSIWaqKD6YKJyaJ KpO5ClPVBhDWutXXDfvjo2 OyBfCf1ppZHyvKzsVOzsEB JkXHBsYWluXGJcZnMyMCAi Dfe0tRYnFVV9q6PxDHE2uI 7jb3e4OOnmrEn9GJJtG8tj dCBmbHVpZCJccGFyXGIwXH SjsuZHEDfslYx3UKCkq1Sg uUHlnHjiBV5vtB1vmDScZG Osj6DjnC09egHxTLKdnBAp IGZldyBkZWdlbmVyYXRlZC MtUBaeeludLH3jRPVdcrLw mASyqp7zqHEgDVYpIUGlTA WfWZBpdfDuOHWaUQZivL7f OVLypQwkeR5iIYVru6npU2 fqwjAxk9X5ZN5mnGHuSIEp kzZhK8TmSZWyyGaxFoetH9 ujpQ23IWJdixC6LWNkf30u FySfXQA0aNNjYDDzrM45EE xwYXJccGFyXHBhciBQcmlt IEL0FJIzcaUueqJoYjRKQE D4u7GhDdXsdaUqEVARNWhM T6ZVSTjvXVN5x9dnrQPeEF LecHOpApRiZOClFKMcr3ub ZGVmbGFuZzEwMzNcZnRuYm urtPJqVOMePeVhc7nqp784 kBBsn4rmCUMmWiQ5hGJaMD SanJIqO536YSDuEQfsa9xi n5UtPBIrlHCon5N9MCDJyc fkbHg8tMfkI13xg2B0Uawf H8caVIXmYRMfO3MiYH0vOV BzYdc1XJG8TKM5GRXbKCa8 RLuqCQHpHOQvFkz7HJr3GC tccmVkMFxncmVlbjBcYmx1 [id number] S6VNWtOKJjHbDcQj2oiBRe [id number] QmyrLnafGwfNPHj168H186 k8aoGCGjkkBxhKnUywyif2 cxO576GALrxVPxbsCxXxAx HRKkgCByzYV7PXBiMS5dym zzISzoTXztUBOpfiC2RITz yEVqC4EuQPLoFX8pszvyPN Z1GTdgLKHkGWQ1PiJvTECz i7Jqcir1ZfHojt6fxx46KX W2c7NiyRjiNZS2LRU0KmYa Sj5plDKwYIArOB3qRpQocR GmKBTqrf90qVsdCDyuvkNx aN3cPhKmKCNfxMWoYVArMO 7lnOUhFXAuaL9sgvzoYHWq YnJkcmhlYWRccGdicmRyZm 2htQodNIL2QGmtV4mrlQ4n TsE3KVqfD8lilE0pXOe2TL qxgBE7TQPhcJ5rAA3ndsft v7alMFzyFUudKEPvwzQ9np U5QGXfuCPsR3CtwZ7pWOGz US5imwoxh7fqZFX0CKxeHH KbBLW4BeFzWILfl1Pmgbz4 XfZwj0WwkZMsQMtuJ77gs1 97BUAujvZwO3xfxDCbutvf iRDygolbXIjbjpJ5HNIgEB BsYWluXGYxXGZzMjJcbGFu ZzEwMzNcaGljaFxmMVxkYm QoSAUpLKzeT1lfQpDlAeLv DkyrPLWpxExzoE4tJtSjLk CcDUwnQA7kKYPuL1ktqOCf UYZyBVAnY6kxCaRuoA0doK jwVQdcygWrRSDxTJP5nj9z vLEobAh7QKShH36jPVHFbP NpVealRUj1AM4uWQJpoENz OJZRLGFgxeGlTh4vYK5aQW IyLlxwYXJccGFyXHBsYWlu XGYxXGZzMThcbGFuZzEwMz NcaGljaFxmMVxkYmNoXGYx LAnaG2cqDzSzK2VrZKJkAL hcaSBJIGNlcnRpZnkgdGhh dCBJIHBlcnNvbmFsbHkgY2 9uZHVjdGVkIHRoZSBkaWFn lk3psSjxAOO7HFd4MELvz2 5os2AukJfjQFBov6SpZCIs ZWNpbWVuKHMpIGFuZCBoYX ZlIHJlbmRlcmVkIHRoZSBm eF2mcBWqjMVjal8wzFUpTQ NhXhOmwLstmR7yFbHkBsZt TayaGL7cQYGjD1mosVMfFW XgUIYgU4dmBjEuwH5jeRfd QUpyzuZqHXQskwbbBZC9eR == [facility] Work Phone: Gross Description f7eiiDDvQAVogOP1KOGj XG Gjx6tpj9JgjKKwaESsKRgu tMDkmfLmwh27rAO2yM44VY 5rITFfJsF6GDLytfR2Tdm9 FPWiSCMvkEFfI301c3umb3 yafzLyaBG2hCawANWhjnwv FjQ6TNcmSEKjwmmcMHn7SC rbDFKrkYR8OSBtnQZcC6Ws OQMwYQ6utth3TSL0ZHbrTE TbZzN4EOVgqYWcDWZzpGgt FRlll647MNO1HbDnJVLnmm HypWlziZ1lIwAtWAIfXYQe eZ2NhzYsGFKmnNYvWPDgXJ RredZmWxGVfDBggC2mVVOa eGVkIGFuZCBzdGFpbmVkIH wkrXsxPHUrFM3rI57aND04 PNH7ZFdfWqksQEZqY0AgqN WLdF0hncXtleKwJDAnHXLx a4HxELtnbZycSDEli19nBH DEEQnbFKOyo6YzQD3ftXKe aWFsIGZpeGVkIGluIDEwJS UpSDB2pmYtFTW8TlIldhGa ZGUilw3wlRekMJVesmRyLN YasM27ygArVDCqqx6= [facility] Work Phone: Volume 1 mL [facility] [...] Inclusion of Race in Diagnosing Kidney Disease. [place] Journal of Kidney Diseases 202;79(2):268-88.e1. 2. N Engl J Med 1 Vol. 385 Issue 19 Pages 4544-9015 Glucose [Mass/Vol] 88 mg/dL 68 - 110 [...] [Mass/Vol] 0.20 mg/dL 0.10 - 0.30 mg/dL [facility] Interpretation and review of laboratory results Abnormal [facility] Protein [Mass/Vol] 4.5 g/dL Low 6.2 - 8.3 g/dL [facility] - Blood bankon Major crossmatch [Interp] Compatible (E) [facility] Major crossmatch [Interp] Compatible (E) [facility] MAGNESIUMon 08-03-2021 Interpretation and review of laboratory results Normal [facility] Magnesium [Mass/Vol] 1.9 mg/dL 1.6 - 2 .8 mg/dL [facility] No Panel Informationon 08-03 [facility] Blood Product Code [id number] [facility] ealt Blood Product Description FFP [facility] Blood Product Unit Type 7300 M [facility] Comment on above: B Pos Status Released to avail [facility] alth [facility] Blood Product Code [id number] [facility] ealt Blood Product Description Red Blood Cells [facility] Blood Product Unit Type 7300 [facility] Comment on above: B Pos Status Released to avail [facility] alth [facility] Blood Product Code [id number] [facility] ealt Blood Product Description Red Blood Cells [facility] Blood Product Unit Type 7300 [facility] Comment on above: B Pos Status Transfused [facility] PLASMA STATUSon 08-03-2021 Blood product unit Nom (BPU) [ID] [id number] [facility] Blood product unit Nom (BPU) [ID] [id number] [facility] RED BLOOD CELL UNIT STATUSon 08-03-2021 Blood product unit Nom (BPU) [ID] [id number] [facility] Blood product unit Nom (BPU) [ID] [id number] [facility] Blood product unit Nom (BPU) [ID] [id number] [facility] Blood product unit Nom (BPU) [ID] [id number] [facility] Basic metabolic 2000 panelon 08-02-2021 Anion gap [Moles/Vol] 11 mmol/L [facility] Calcium [Mass/Vol] 8.4 mg/dL 8.4 - 10. 4 mg/dL [facility] Chloride [Moles/Vol] 106 mmol/L 97 - 11 1 mmol/L [facility] CO2 [Moles/Vol] 25 mmol/L 21 - 30 mmol/L [facility] Creatinine [Mass/Vol] 0.66 mg/dL 0.50 - 1.10 mg/dL [facility] GFR/1.73 sq M.predicted MDRD (S/P/Bld) [Vol [...] Inclusion of Race in Diagnosing Kidney Disease. [place] Journal of Kidney Diseases 2021;79(2):268-88.e1. 2. N Engl J Med 2020 Vol. 385 Issue 19 Pages 1074-8810 Glucose [Mass/Vol] 85 mg/dL 68 - 110 [...] [#/Vol] 7.8 10*3/uL 4.5 - 11.5 K/uL [facility] CT ABDOMEN/PELVIS W/ CONTRAS TOrdered By: Mag Ordoñez on 08-02-2021 CT DLP 902.8 (mGy.cm) [facility] Work Phone: CT Series Abdomen [facility] Work Phone: CTDI VOL 16.5 (mGy) [facility] Work Phone: PHANTOM TYPE IEC Body Dosimetry Phantom [facility] Work Phone: [facility] Work Phone: CT ABDOMEN/PELVIS W/ CONTRAS [...] contrast to assess anatomy Additional history per [facility] surgery note 07/30/2021: Status post laparoscopy with [...] contrast to assess anatomy Additional history per [facility] surgery note 07/30/2021: Status post laparoscopy with resection of a hepatic duct polyp and Yovani-en-Y hepaticojejunostomy x 2 on 07/30/2021; Intraoperative cholangiogram revealed a left hepatic duct transection, which was consistent with communication into the cyst itself. Intrahepatic bile duct polyp was excised in its entirety and was located in segment IVB left hepatic duct, which was excised. ORDERING PROVIDER: RALPH CARRASCO TECHNFRITZ NOTE: COMPARISON: Intraoperative fluoroscopic images dated 07/30/2021; [...] to patient's known (more content not included)... [facility] HEPATIC FUNCTION PANELon Albumin [Mass/Vol] 2.6 g/dL Low 3.4 - 5.1 g/dL [facility] ALP [Catalytic activity/Vol] 35 U/L Low [facility] ALT [Catalytic activity/Vol] 34 U/L [facility] AST [Catalytic activity/Vol] 37 U/L [facility] Bilirubin [Mass/Vol] 0.8 mg/dL 0.1 - 1 .5 mg/dL [facility] Bilirubin.direct [Mass/Vol] 0.20 mg/dL 0.10 - 0.30 mg/dL [facility] Interpretation and review of laboratory results Abnormal [facility] Protein [Mass/Vol] 4.4 g/dL Low 6.2 - 8.3 g/dL [facility] MAGNESIUMon 08-02-2021 Interpretation and review of laboratory results Normal [facility] Magnesium [Mass/Vol] 1.9 mg/dL 1.6 - 2 .8 mg/dL [facility] Basic metabolic 2000 panelon 08-01-2021 Anion gap [...] Inclusion of Race in Diagnosing Kidney Disease. [place] Journal of Kidney Diseases 202;79(2):268-88.e1. 2. N Engl J Med 1 Vol. 385 Issue 19 Pages 6717-1345 Glucose [Mass/Vol] 101 mg/dL 68 - 110 [...] [facility] RBC (Bld) [#/Vol] 2.66 10*6/uL Low [facility] WBC (Bld) [#/Vol] 7.6 10*3/uL 4.5 - 11.5 [facility]L [facility]LVIS W/ CONTRAS Ton 08-01-2021 Radiology Study observation (narrative) [facility] HEPATIC FUNCTION PANELon Albumin [Mass/Vol] 2.7 g/dL Low 3.4 - 5.1 g/dL [facility] ALP [Catalytic activity/Vol] 32 U/L Low [facility] ALT [Catalytic activity/Vol] 40 U/L [facility] AST [Catalytic activity/Vol] 53 U/L High [facility] Bilirubin [Mass/Vol] 1.0 mg/dL 0.1 - 1 .5 mg/dL [facility] Bilirubin.direct [Mass/Vol] 0.20 mg/dL 0.10 - 0.30 mg/dL [facility] Interpretation and review of laboratory results [facility] Protein [Mass/Vol] 3.7 g/dL Low 6.2 - 8.3 g/dL [facility] MAGNESIUMon 08-01-2021 Interpretation and review of laboratory results Normal [facility] Magnesium [Mass/Vol] 1.9 mg/dL 1.6 - 2 .8 mg/dL [facility] No Panel Informationon 08-01 [facility] PARTIAL THROMBOPLASTIN TIMEo n 08-01-2021 aPTT Coag (Bld) [Time] [address] [facility] Interpretation and review of laboratory results Normal [facility] PROTHROMBIN TIME AND INRon 0 08-01-2021 INR [...] Inclusion of Race in Diagnosing Kidney Disease. [place] Journal of Kidney Diseases 202;79(2):268-88.e1. 2. N Engl J Med 1 Vol. 385 Issue 19 Pages 3630-0668 Glucose [Mass/Vol] 129 mg/dL High 68 - 110 mg/dL [facility] Interpretation and review of laboratory results Abnormal [facility] Potassium [Moles/Vol] 4.6 mmol/L 3.3 - 5.3 mmol/L [facility] Sodium [Moles/Vol] 135 mmol/L 135 - 148 mmol/L [facility] Urea nitrogen [Mass/Vol] 10 mg/dL 8 - 22 mg/dL [facility] CALCIUM, IONIZEDon Calcium.ionized (Bld) [Moles/Vol] 1.21 mmol/L 1.10 - 1.40 mmol/L [facility] CBC panel Auto (Bld)on 07-31 Erythrocyte distribution width (RBC) [Ratio] 15.1 % High 11.5 - 14.5 % [facility] Hematocrit (Bld) [Volume fraction] 28.7 % Low 36.0 - 46.0 % [facility] Hemoglobin (Bld) [Mass/Vol] 9.9 g/dL Low 12.0 - 15.0 g/dL [facility] Interpretation and review of laboratory results Abnormal [facility] MCH (RBC) [Entitic mass] 28.8 pg 26.0 - 34.0 pg [facility] MCHC (RBC) [Mass/Vol] 34.6 g/dL 32.0 - 35.9 g/dL [facility] MCV (RBC) [Entitic vol] 83 fL 80 - 100 fL [facility] Platelet mean volume (Bld) [Entitic vol] 7.3 fL Low 7.5 - 11.2 fL [facility] Platelets (Bld) [#/Vol] 207 10*3/uL 150 - 400 K/uL [facility] RBC (Bld) [#/Vol] 3.45 10*6/uL Low [facility] WBC (Bld) [#/Vol] 9.5 10*3/uL 4.5 - 11.5 K/uL [facility] CO-OXIMETERon 07-31-2021 Carboxyhemoglobin (BldA) [Mass fraction] <0.7 <3.0 % [facility] Hemat[facility] (BldA) [Volume fraction] 30.6 % Low 36.0 - 46.0 % [facility] Hemoglobin (Bld) [Mass/Vol] 9.9 g/dL Low 12.0 - 16.0 g/dL [facility] Interpretation and review of laboratory results Abnormal [facility] Methemoglobin (BldA) [Mass fraction] 1.5 % <3.0 [facility] Oxyhemoglobin (BldA) [Mass fraction] 95.9 % 95.0 - 100.0 % [facility] ELECTROLYTESon 07-31-2021 Chloride [Moles/Vol] 107 mmol/L 97 - 11 1 mmol/L [facility] Potassium [Moles/Vol] 4.1 mmol/L 3.3 - 5.3 mmol/L [facility] Sodium [Moles/Vol] 138 mmol/L 135 - 148 mmol/L [facility] GLUCOSE, WHOLE BLOODon 07-31 Glucose [Mass/Vol] 147 mg/dL High 68 - 98 mg/dL [facility] HEPATIC FUNCTION PANELon Albumin [Mass/Vol] 3.7 g/dL 3.4 - 5.1 g/dL [facility] ALP [Catalytic activity/Vol] 30 U/L Low [facility] ALT [Catalytic activity/Vol] 55 U/L High [facility] AST [Catalytic activity/Vol] 102 U/L High [facility] Bilirubin [Mass/Vol] 1.8 mg/dL High 0.1 - 1 .5 mg/dL [facility] Bilirubin.direct [Mass/Vol] 0.40 mg/dL High 0.10 - 0.30 mg/dL [facility] Protein [Mass/Vol] 4.7 g/dL Low 6.2 - 8.3 g/dL [facility] LACTIC ACIDon 07-31-2021 Lactate [Moles/Vol] 1.9 mmol/L 0.5 - 2. 0 mmol/L [facility] - Chemistry and C hemistry - challengeOrdered By: Feliciano Cutler on 07-31-2021 HCO3 (Bld) [Moles/Vol] 21 mmol/L Low 22 - 28 mmol/L [facility] MAGNESIUMon 07-31-2021 Magnesium [Mass/Vol] 1.5 mg/dL Low 1.6 - 2 .8 mg/dL [facility] No Panel Informationon 07-31 Interpretation and review of laboratory results Abnormal [facility] Interpretation and review of laboratory results Normal [facility] Interpretation and review of laboratory results Abnormal [facility] BLOOD GAS, ARTERIALon 2021 Base excess [...] 170 mg/dL High 68 - 98 mg/dL [facility] Glucose [Mass/Vol] 187 mg/dL High 68 - 98 mg/dL [facility] Glucose [Mass/Vol] 192 mg/dL High 68 - 98 mg/dL [facility] LACTIC ACIDon 07-30-2021 Lactate [Moles/Vol] 1.9 mmol/L 0.5 - 2. 0 mmol/L [facility] Lactate [Moles/Vol] 1.3 mmol/L 0.5 - 2. 0 mmol/L [facility] Lactate [Moles/Vol] 1.5 mmol/L 0.5 - 2. 0 mmol/L [facility] - Blood bankon ABO and Rh group Nom (Bld) Blood group B Rh(D) positive [facility] - Chemistry and C hemistry - challengeon 07-30-2021 HCO3 (Bld) [Moles/Vol] 19 mmol/L Low 22 - 28 mmol/L [facility] HCO3 (Bld) [Moles/Vol] 21 mmol/L Low 22 - 28 mmol/L [facility] - Chemistry and C hemistry - challengeOrdered By: Melissa Moon on 07-30-2021 HCO3 (Bld) [Moles/Vol] 22 mmol/L 22 - 28 mmol/L [facility] No Panel Informationon 07-30 Interpretation and review of laboratory results Abnormal [facility] Interpretation and review of laboratory results Normal [facility] Interpretation and review of laboratory results Abnormal [facility] Interpretation and review of laboratory results Normal [facility] Interpretation and review of laboratory results Normal [facility] No Panel InformationOrdered By: Melissa Moon on 07-30-2021 Interpretation and review of laboratory results Abnormal [facility] RED BLOOD CELL COMPONENTon 0 07-30-2021 BB Order Item Product status info to follow [facility] BB Order Item Product status info to follow [facility] TRANSFUSE RED CELLSon 2021 [facility] TRANSFUSE RED CELLSOrdered B y: Adrian Bermudez on 07-30-2021 [facility] Work Phone: TYPE AND SCREENon 07-30-2021 Blood group antibody screen Ql Negative [facility] URINE HCG-IN OFFICEOrdered B y: Rachel [...] [Mass/Vol] 14.2 ng/mL 10.3 - 219.0 ng/mL [facility] Interpretation and review of laboratory results [...] Control Positive Positive [facility]-04 SARS-CoV-2 (COVID-19) RNA PITO+probe Ql (Unsp spec) Not detected Normal NOT DETECTED [facility] Comment on above: Result Comment: This test is not yet approved or cleared by the [place] FDA. When there are no FDA-approved or cleared tests available, and other criteria are met, FDA can make tests available under an emergency access mechanism called an Emergency Use Authorization (EUA). The EUA for this test is supported by the [employer] of Health and Human Service's (HHS's) declaration [...] SARS-CoV-2. Performed By: #### C VDTBH #### [facility] [address] [place] [address] Dr. Toy Macario CBC AUTO DIFFon 04-22-2021 BASO # 0.1 103/ul Normal 0.0-0.1 [facility] Comment on above: Performed By: #### C BC #### [facility] [address] [address] [address] Toy Macario Basophils/100 WBC (Bld) 0.8 % Normal 0.2-2.0 [facility] Comment on above: Performed By: #### C BC #### [facility] [address] [place] [address] Dr. Toy Macario EO # 0.2 103/ul Normal 0.0-0.7 [facility] Comment on above: Performed By: #### C BC #### [facility] [address] [place] [address] Dr. Toy Macario Eosinophils/100 WBC (Bld) 2.5 % Normal 0.9-7.0 [facility] Comment on above: Performed By: #### C BC #### [facility] [address] [place] [address] Dr. Toy Macario Erythrocyte distribution width (RBC) [Ratio] 14.3 % Normal 11.0-15.0 [facility] Comment on above: Performed By: #### C BC #### [facility] [address] [place] [address] Dr. Toy Macario Hematocrit (Bld) [Volume fraction] 26.9 % Critically low 36.0-48.0 [facility] Comment on above: Performed By: #### C BC #### [facility] [address] [place] [address] Dr. Toy Macario Hemoglobin (Bld) [Mass/Vol] 7.7 g/dL Critically low 12.0-16.0 [facility] Comment on above: Performed By: #### C BC #### [facility] [address] [place] [address] Dr. Toy Macario IG # 0.04 10e3/ul Critically high 0.00-0.03 [facility] Comment on above: Performed By: #### C BC #### [facility] [address] [place] [address] Dr. Toy Macario IG % 0.7 % Critically high 0.0-0.5 [facility] Comment on above: Performed By: #### C BC #### [facility] [address] [place] [address] Dr. Toy Macario LYMPH # 1.2 103/ul Normal 1.2-3.8 [facility] Comment on above: Performed By: #### C BC #### [facility] [address] [place] [address] Dr. Toy Macario Lymphocytes/100 WBC (Bld) 19.2 % Critically low 20.5-60.0 [facility] Comment on above: Performed By: #### C BC #### [facility] [address] [place] [address] Dr. Toy Macario MANUAL DIFF REQ NO Normal [facility] Comment on above: Performed By: #### C BC #### [facility] [address] [place] [address] Dr. Toy Macario MCH (RBC) [Entitic mass] 27.6 pg Normal 26.7-34.0 [facility] Comment on above: Performed By: #### C BC #### [facility] [address] [place] [address] Dr. Toy Macario MCHC (RBC) [Mass/Vol] 28.6 g/dL Critically low 29.9-35.2 [facility] Comment on above: Performed By: #### C BC #### [facility] [address] [place] [address] Dr. Toy Macario MCV (RBC) [Entitic vol] 96.4 fL Normal 81.0-99.0 [facility] Comment on above: Performed By: #### C BC #### [facility] [address] [place] [address] Dr. Toy Macario MONO # 0.4 103/ul Normal 0.3-0.8 [facility] Comment on above: Performed By: #### C BC #### [facility] [address] [place] [address] Dr. Toy Macario Monocytes/100 WBC (Bld) 7.2 % Normal 1.7-12.0 [facility] Comment on above: Performed By: #### C BC #### [facility] [address] [place] [address] Dr. Toy Macario NEUT # 4.3 103/ul Normal 1.4-6.5 [facility] Comment on above: Performed By: #### C BC #### [facility] [address] [address] [address] Toy Macario Neutrophils/100 WBC (Bld) 69.6 % Normal 43.0-75.0 [facility] Comment on above: Performed By: #### C BC #### [facility] [address] [address] [address] Toy Macario Platelet mean volume (Bld) [Entitic vol] 10.0 fL Normal 9.5-13.5 [facility] Comment on above: Performed By: #### C BC #### [facility] [address] [address] [address] Toy Macario PLT 238 103/ul Normal 150-450 [facility] Comment on above: Performed By: #### C BC #### [facility] [address] [place] [address] Dr. Toy Macario RBC 2.79 106/ul Critically low 4.20-5.40 [facility] Comment on above: Performed By: #### C BC #### [facility] [address] [place] [address] Dr. Toy Maacrio WBC 6.1 103/ul Normal 4.0-11.0 [facility] Comment on above: Performed By: #### C BC #### [facility] [address] [place] [address] Dr. Toy Macario LIPASEon 04-22-2021 Lipase [Catalytic activity/Vol] 712.0 U/L Critically high 23.0-300.0 [facility] Comment on above: Performed By: #### L IPA, CMP #### [facility] [address] [place] [address] Dr. Toy Macario MAGNESIUMon 04-22-2021 Magnesium [Mass/Vol] 2.6 mg/dL Critically high 1.6-2.3 [facility] Comment on above: Performed By: #### L IPA, CMP #### [facility] [address] [place] [address] Dr. Toy Macario PHOSPHORUSon 04-22-2021 Phosphate [Mass/Vol] 3.8 mg/dL Normal 2.5-4.5 [facility] Comment on above: Performed By: #### L IPA, CMP #### [facility] [address] [place] [address] Dr. Toy Macario POINT OF CARE GLUCOSEon 04-06 Glucose [Mass/Vol] 114 mg/dL Critically high 74-106 [facility] Comment on above: Performed By: #### L IPA, CMP #### [facility] [address] [place] [address] Dr. Toy Macario Glucose [Mass/Vol] 123 mg/dL Critically high 74-106 [facility] Comment on above: Performed By: #### L IPA, CMP #### [facility] [address] [place] [address] Dr. Toy Macario Glucose [Mass/Vol] 131 mg/dL Critically high 74-106 [facility] Comment on above: Performed By: #### L IPA, CMP #### [facility] [address] [place] [address] Dr. Toy Macario PROF 14(COMP METB)on 022 Albumin [Mass/Vol] 1.9 g/dL Critically low 3.5-5.0 [facility] Comment on above: Performed By: #### L IPA, CMP #### [facility] [address] [place] [address] Dr. Toy Macario Albumin/Globulin [Mass ratio] 0.5 {ratio} Normal [facility] Comment on above: Performed By: #### L IPA, CMP #### [facility] [address] [place] [address] Dr. Toy Macario ALP [Catalytic activity/Vol] 60 U/L Normal 38-126 [facility] Comment on above: Performed By: #### L IPA, CMP #### [facility] [address] [place] [address] Dr. Toy Macario ALT [Catalytic activity/Vol] 14 U/L Normal 9-52 [facility] Comment on above: Performed By: #### L IPA, CMP #### [facility] [address] [address] [address] Toy Macario Anion gap [Moles/Vol] 12.7 mmol/L Normal [facility] Comment on above: Performed By: #### L IPA, CMP #### [facility] [address] [address] [address] Toy Macario AST [Catalytic activity/Vol] 13 U/L Critically low 14-36 [facility] Comment on above: Performed By: #### L IPA, CMP #### [facility] [address] [place] [address] Dr. Toy Macario Bilirubin [Mass/Vol] 0.3 mg/dL Normal 0.2-1.3 [facility] Comment on above: Performed By: #### L IPA, CMP #### [facility] [address] [place] [address] Dr. Toy Macario Calcium [Mass/Vol] 8.6 mg/dL Normal 8.4-10.2 [facility] Comment on above: Performed By: #### L IPA, CMP #### [facility] [address] [place] [address] Dr. Toy Macario Chloride [Moles/Vol] 106 mmol/L Normal 98-107 [facility] Comment on above: Performed By: #### L IPA, CMP #### [facility] [address] [place] [address] Dr. Toy Macario CO2 [Moles/Vol] 26.9 mmol/L Normal 22.0-30.0 [facility] Comment on above: Performed By: #### L IPA, CMP #### [facility] [address] [place] [address] Dr. Toy Macario Creatinine [Mass/Vol] 0.59 mg/dL Normal 0.52-1.04 [facility] Comment on above: Performed By: #### L IPA, CMP #### [facility] [address] [place] [address] Dr. Toy Macario EGFR-AF GIBRALTARIAN >60 Normal >=60 [facility] Comment on above: Performed By: #### L IPA, CMP #### [facility] [address] [address] Dr. Toy Macario EGFR-NON AF GIBRALTARIAN >60 Normal >=60 [facility] Comment on above: Performed By: #### L IPA, CMP #### [facility] [address] [address] [address] Toy Macario Globulin (S) [Mass/Vol] 4.0 g/dL Normal [facility] Comment on above: Performed By: #### L IPA, CMP #### [facility] [address] [address] [address] Toy Macario Glucose [Mass/Vol] 109 mg/dL Critically high 74-106 [facility] Comment on above: Performed By: #### L IPA, CMP #### [facility] [address] [place] [address] Dr. Toy Macario Potassium [Moles/Vol] 3.6 mmol/L Normal 3.4-5.0 [facility] Comment on above: Performed By: #### L IPA, CMP #### [facility] [address] [place] [address] Dr. Toy Macario Protein [Mass/Vol] 5.9 g/dL Critically low 6.1-8.2 [facility] Comment on above: Performed By: #### L IPA, CMP #### [facility] [address] [place] [address] Dr. Toy Macario Sodium [Moles/Vol] 142 mmol/L Normal 137-145 [facility] Comment on above: Performed By: #### L IPA, CMP #### [facility] [address] [place] [address] Dr. Toy Macario Urea nitrogen [Mass/Vol] 9.0 mg/dL Normal 7.0-17.0 [facility] Comment on above: Performed By: #### L IPA, CMP #### [facility] [address] [place] [address] Dr. Toy Macario Urea nitrogen/Creatinine [Mass ratio] 15.3 mg/mg Normal [facility] Comment on above: Performed By: #### L IPA, CMP #### [facility] [address] [place] [address] Dr. Toy Macario TRIGLYCERIDEon 04-22-2021 Triglyceride [Mass/Vol] 84 mg/dL Normal <=150 [facility] Comment on above: Performed By: #### L IPA, CMP #### [facility] [address] [place] [address] Dr. Toy Macario CBC AUTO DIFFon 04-21-2021 BASO # 0.1 103/ul Normal 0.0-0.1 [facility] Comment on above: Performed By: #### C VDTBH #### [facility] [address] [place] [address] Dr. Toy Macario Basophils/100 WBC (Bld) 0.7 % Normal 0.2-2.0 [facility] Comment on above: Performed By: #### C VDTBH #### [facility] [address] [place] [address] Dr. Toy Macario EO # 0.1 103/ul Normal 0.0-0.7 [facility] Comment on above: Performed By: #### C VDTBH #### [facility] [address] [place] [address] Dr. Toy Macario Eosinophils/100 WBC (Bld) 1.5 % Normal 0.9-7.0 [facility] Comment on above: Performed By: #### C VDTBH #### [facility] [address] [place] [address] Dr. Toy Macario Erythrocyte distribution width (RBC) [Ratio] 13.8 % Normal 11.0-15.0 [facility] Comment on above: Performed By: #### C VDTBH #### [facility] [address] [place] [address] Dr. Toy Macario Hematocrit (Bld) [Volume fraction] 26.3 % Critically low 36.0-48.0 [facility] Comment on above: Performed By: #### C VDTBH #### [facility] [address] [place] [address] Dr. Toy Macario Hemoglobin (Bld) [Mass/Vol] 8.2 g/dL Critically low 12.0-16.0 [facility] Comment on above: Performed By: #### C VDTBH #### [facility] [address] [address] [address] Toy Macario IG # 0.13 10e3/ul Critically high 0.00-0.03 [facility] Comment on above: Performed By: #### C VDTBH #### [facility] [address] [address] [address] Toy Macario IG % 1.8 % Critically high 0.0-0.5 [facility] Comment on above: Performed By: #### C VDTBH #### [facility] [address] [address] [address] Toy Macario LYMPH # 1.3 103/ul Normal 1.2-3.8 [facility] Comment on above: Performed By: #### C VDTBH #### [facility] [address] [place] [address] Dr. Toy Macario Lymphocytes/100 WBC (Bld) 18.6 % Critically low 20.5-60.0 [facility] Comment on above: Performed By: #### C VDTBH #### [facility] [address] [place] [address] Dr. Toy Macario MANUAL DIFF REQ NO Normal [facility] Comment on above: Performed By: #### C VDTBH #### [facility] [address] [address] [address] Toy Macario MCH (RBC) [Entitic mass] 27.7 pg Normal 26.7-34.0 [facility] Comment on above: Performed By: #### C VDTBH #### [facility] [address] [address] [address] Toy Macario MCHC (RBC) [Mass/Vol] 31.2 g/dL Normal 29.9-35.2 [facility] Comment on above: Performed By: #### C VDTBH #### [facility] [address] [place] [address] Dr. Toy Macario MCV (RBC) [Entitic vol] 88.9 fL Normal 81.0-99.0 [facility] Comment on above: Performed By: #### C VDTBH #### [facility] [address] [place] [address] Dr. Toy Macario MONO # 0.4 103/ul Normal 0.3-0.8 [facility] Comment on above: Performed By: #### C VDTBH #### [facility] [address] [place] [address] Dr. Toy Macario Monocytes/100 WBC (Bld) 6.0 % Normal 1.7-12.0 [facility] Comment on above: Performed By: #### C VDTBH #### [facility] [address] [place] [address] Dr. Toy Macario NEUT # 5.2 103/ul Normal 1.4-6.5 [facility] Comment on above: Performed By: #### C VDTBH #### [facility] [address] [place] [address] Dr. Toy Macario Neutrophils/100 WBC (Bld) 71.4 % Normal 43.0-75.0 [facility] Comment on above: Performed By: #### C VDTBH #### [facility] [address] [place] [address] Dr. Toy Macario Platelet mean volume (Bld) [Entitic vol] 9.9 fL Normal 9.5-13.5 [facility] Comment on above: Performed By: #### C VDTBH #### [facility] [address] [place] [address] Dr. Toy Macario PLT 245 103/ul Normal 150-450 [facility] Comment on above: Performed By: #### C VDTBH #### [facility] [address] [place] [address] Dr. Toy Macario RBC 2.96 106/ul Critically low 4.20-5.40 [facility] Comment on above: Performed By: #### C VDTBH #### [facility] [address] [place] [address] Dr. Toy Macario WBC 7.2 103/ul Normal 4.0-11.0 [facility] Comment on above: Performed By: #### C VDTBH #### [facility] [address] [place] [address] Dr. Toy Macario LIPASEon 04-21-2021 Lipase [Catalytic activity/Vol] 645.0 U/L Critically high 23.0-300.0 [facility] Comment on above: Performed By: #### O DEVENDRA #### [facility] [address] [place] [address] Dr. Toy Macario MAGNESIUMon 04-21-2021 Magnesium [Mass/Vol] 2.0 mg/dL Normal 1.6-2.3 [facility] Comment on above: Performed By: #### O DEVENDRA #### [facility] [address] [place] [address] Dr. Toy Macario PHOSPHORUSon 04-21-2021 Phosphate [Mass/Vol] 3.6 mg/dL Normal 2.5-4.5 [facility] Comment on above: Performed By: #### O DEVENDRA #### [facility] [address] [place] [address] Dr. Toy Macario POTASSIUMon 04-21-2021 Potassium [Moles/Vol] 3.5 mmol/L Normal 3.4-5.0 [facility] Comment on above: Performed By: #### K #### [facility] [address] [place] [address] Dr. Toy Macario PROF 14(COMP METB)on 022 Albumin [Mass/Vol] 1.8 g/dL Critically low 3.5-5.0 [facility] Comment on above: Performed By: #### O DEVENDRA #### [facility] [address] [place] [address] Dr. Toy Macario Albumin/Globulin [Mass ratio] 0.4 {ratio} Normal [facility] Comment on above: Performed By: #### O DEVENDRA #### [facility] [address] [place] [address] Dr. Toy Macario ALP [Catalytic activity/Vol] 65 U/L Normal 38-126 [facility] Comment on above: Performed By: #### O DEVENDRA #### [facility] [address] [address] [address] Toy Macario ALT [Catalytic activity/Vol] 13 U/L Normal 9-52 [facility] Comment on above: Performed By: #### O DEVENDRA #### [facility] [address] [address] [address] Toy Macario Anion gap [Moles/Vol] 8.2 mmol/L Normal [facility] Comment on above: Performed By: #### O DEVENDRA #### [facility] [address] [address] [address] Toy Macario AST [Catalytic activity/Vol] 14 U/L Normal 14-36 [facility] Comment on above: Performed By: #### O DEVENDRA #### [facility] [address] [place] [address] Dr. Toy Macario Bilirubin [Mass/Vol] 0.3 mg/dL Normal 0.2-1.3 [facility] Comment on above: Performed By: #### O DEVENDRA #### [facility] [address] [place] [address] Dr. Toy Macario Calcium [Mass/Vol] 8.3 mg/dL Critically low 8.4-10.2 [facility] Comment on above: Performed By: #### O DEVENDRA #### [facility] [address] [place] [address] Dr. Toy Macario Chloride [Moles/Vol] 106 mmol/L Normal 98-107 [facility] Comment on above: Performed By: #### O DEVENDRA #### [facility] [address] [place] [address] Dr. Toy Macario CO2 [Moles/Vol] 27.7 mmol/L Normal 22.0-30.0 [facility] Comment on above: Performed By: #### O DEVENDRA #### [facility] [address] [place] [address] Dr. Toy Macario Creatinine [Mass/Vol] 0.59 mg/dL Normal 0.52-1.04 [facility] Comment on above: Performed By: #### O DEVENDRA #### [facility] [address] [address] [address] Toy Macario EGFR-AF GIBRALTARIAN >60 Normal >=60 [facility] Comment on above: Performed By: #### O DEVENDRA #### [facility] [address] [address] [address] Toy Macario EGFR-NON AF GIBRALTARIAN >60 Normal >=60 [facility] Comment on above: Performed By: #### O DEVENDRA #### [facility] [address] [address] [address] Toy Macario Globulin (S) [Mass/Vol] 4.3 g/dL Normal [facility] Comment on above: Performed By: #### O DEVENDRA #### [facility] [address] [place] [address] Dr. Toy Macario Glucose [Mass/Vol] 117 mg/dL Critically high 74-106 [facility] Comment on above: Performed By: #### O DEVENDRA #### [facility] [address] [place] [address] Dr. Toy Macario Potassium [Moles/Vol] 2.9 mmol/L Critically low 3.4-5.0 [facility] Comment on above: Result Comment: Test Repeated. Criticall Value Verified Performed By: #### O DEVENDRA #### [facility] [address] [place] [address] Dr. Toy Macario Protein [Mass/Vol] 6.1 g/dL Normal 6.1-8.2 [facility] Comment on above: Performed By: #### O DEVENDRA #### [facility] [address] [place] [address] Dr. Toy Macario Sodium [Moles/Vol] 139 mmol/L Normal 137-145 [facility] Comment on above: Performed By: #### O DEVENDRA #### [facility] [address] [address] [address] Toy Macario Urea nitrogen [Mass/Vol] 7.0 mg/dL Normal 7.0-17.0 [facility] Comment on above: Performed By: #### O DEVENDRA #### [facility] [address] [place] [address] Dr. Toy Macario Urea nitrogen/Creatinine [Mass ratio] 11.9 mg/mg Normal [facility] Comment on above: Performed By: #### O DEVENDRA #### [facility] [address] [place] [address] Dr. Toy Macario TRIGLYCERIDEon 04-21-2021 Triglyceride [Mass/Vol] 182 mg/dL Critically high <=150 [facility] Comment on above: Performed By: #### L IPA, CMP #### [facility] [address] [place] [address] Dr. Toy Macario CBC AUTO DIFFon 04-20-2021 BASO # 0.0 103/ul Normal 0.0-0.1 [facility] Comment on above: Performed By: #### C BC #### [facility] [address] [place] [address] Dr. Toy Macario Basophils/100 WBC (Bld) 0.3 % Normal 0.2-2.0 [facility] Comment on above: Performed By: #### C BC #### [facility] [address] [place] [address] Dr. Toy Macario EO # 0.1 103/ul Normal 0.0-0.7 [facility] Comment on above: Performed By: #### C BC #### [facility] [address] [place] [address] Dr. Toy Macario Eosinophils/100 WBC (Bld) 1.2 % Normal 0.9-7.0 [facility] Comment on above: Performed By: #### C BC #### [facility] [address] [place] [address] Dr. Toy Macario Erythrocyte distribution width (RBC) [Ratio] 13.9 % Normal 11.0-15.0 [facility] Comment on above: Performed By: #### C BC #### [facility] [address] [place] [address] Dr. Toy Macario Hematocrit (Bld) [Volume fraction] 26.4 % Critically low 36.0-48.0 [facility] Comment on above: Performed By: #### C BC #### [facility] [address] [address] [address] Toy Macario Hemoglobin (Bld) [Mass/Vol] 8.3 g/dL Critically low 12.0-16.0 [facility] Comment on above: Performed By: #### C BC #### [facility] [address] [address] [address] Toy Macario IG # 0.03 10e3/ul Normal 0.00-0.03 [facility] Comment on above: Performed By: #### C BC #### [facility] [address] [address] [address] Toy Macario IG % 0.5 % Normal 0.0-0.5 [facility] Comment on above: Performed By: #### C BC #### [facility] [address] [address] [address] Toy Macario LYMPH # 1.1 103/ul Critically low 1.2-3.8 [facility] Comment on above: Performed By: #### C BC #### [facility] [address] [address] [address] Toy Macario Lymphocytes/100 WBC (Bld) 18.3 % Critically low 20.5-60.0 [facility] Comment on above: Performed By: #### C BC #### [facility] [address] [address] [address] Toy Macario MANUAL DIFF REQ NO Normal [facility] Comment on above: Performed By: #### C BC #### [facility] [address] [address] [address] Toy Macario MCH (RBC) [Entitic mass] 27.7 pg Normal 26.7-34.0 [facility] Comment on above: Performed By: #### C BC #### [facility] [address] [address] [address] Toy Macario MCHC (RBC) [Mass/Vol] 31.4 g/dL Normal 29.9-35.2 [facility] Comment on above: Performed By: #### C BC #### [facility] [address] [address] [address] Toy Macario MCV (RBC) [Entitic vol] 88.0 fL Normal 81.0-99.0 [facility] Comment on above: Performed By: #### C BC #### [facility] [address] [address] [address] Toy Macario MONO # 0.4 103/ul Normal 0.3-0.8 [facility] Comment on above: Performed By: #### C BC #### [facility] [address] [place] [address] Dr. Toy Macario Monocytes/100 WBC (Bld) 6.3 % Normal 1.7-12.0 [facility] Comment on above: Performed By: #### C BC #### [facility] [address] [place] [address] Dr. Toy Macario NEUT # 4.3 103/ul Normal 1.4-6.5 [facility] Comment on above: Performed By: #### C BC #### [facility] [address] [place] [address] Dr. Toy Macario Neutrophils/100 WBC (Bld) 73.4 % Normal 43.0-75.0 [facility] Comment on above: Performed By: #### C BC #### [facility] [address] [place] [address] Dr. Toy Macario Platelet mean volume (Bld) [Entitic vol] 9.3 fL Critically low 9.5-13.5 [facility] Comment on above: Performed By: #### C BC #### [facility] [address] [place] [address] Dr. Toy Macario PLT 242 103/ul Normal 150-450 [facility] Comment on above: Performed By: #### C BC #### [facility] [address] [place] [address] Dr. Toy Macario RBC 3.00 106/ul Critically low 4.20-5.40 [facility] Comment on above: Performed By: #### C BC #### [facility] [address] [place] [address] Dr. Toy Macario WBC 5.8 103/ul Normal 4.0-11.0 [facility] Comment on above: Performed By: #### C BC #### [facility] [address] [place] [address] Dr. Toy Macario LIPASEon 04-20-2021 Lipase [Catalytic activity/Vol] 519.0 U/L Critically high 23.0-300.0 [facility] Comment on above: Performed By: #### L IPA, CMP #### [facility] [address] [place] [address] Dr. Toy Macario POINT OF CARE GLUCOSEon 04-06 Glucose [Mass/Vol] 104 mg/dL Normal 74-106 [facility] Comment on above: Performed By: #### C VDTBH #### [facility] [address] [place] [address] Dr. Toy Macario Glucose [Mass/Vol] 105 mg/dL Normal 74-106 [facility] Comment on above: Performed By: #### L IPA, CMP #### [facility] [address] [place] [address] Dr. Toy Macario Glucose [Mass/Vol] 109 mg/dL Critically high 74-106 [facility] Comment on above: Performed By: #### O DEVENDRA #### [facility] [address] [place] [address] Dr. Toy Macario PROF 14(COMP METB)on 022 Albumin [Mass/Vol] 1.8 g/dL Critically low 3.5-5.0 [facility] Comment on above: Performed By: #### L IPA, CMP #### [facility] [address] [place] [address] Dr. Toy Macario Albumin/Globulin [Mass ratio] 0.4 {ratio} Normal [facility] Comment on above: Performed By: #### L IPA, CMP #### [facility] [address] [place] [address] Dr. Toy Macario ALP [Catalytic activity/Vol] 67 U/L Normal 38-126 [facility] Comment on above: Performed By: #### L IPA, CMP #### [facility] [address] [address] [address] Toy Macario ALT [Catalytic activity/Vol] 17 U/L Normal 9-52 [facility] Comment on above: Performed By: #### L IPA, CMP #### [facility] [address] [address] [address] Toy Macario Anion gap [Moles/Vol] 8.9 mmol/L Normal [facility] Comment on above: Performed By: #### L IPA, CMP #### [facility] [address] [address] [address] Toy Macario AST [Catalytic activity/Vol] 15 U/L Normal 14-36 [facility] Comment on above: Performed By: #### L IPA, CMP #### [facility] [address] [address] [address] Toy Macario Bilirubin [Mass/Vol] 0.3 mg/dL Normal 0.2-1.3 [facility] Comment on above: Performed By: #### L IPA, CMP #### [facility] [address] [address] [address] Toy Macario Calcium [Mass/Vol] 8.8 mg/dL Normal 8.4-10.2 [facility] Comment on above: Performed By: #### L IPA, CMP #### [facility] [address] [address] [address] Toy Macario Chloride [Moles/Vol] 105 mmol/L Normal 98-107 [facility] Comment on above: Performed By: #### L IPA, CMP #### [facility] [address] [address] [address] Toy Macario CO2 [Moles/Vol] 27.3 mmol/L Normal 22.0-30.0 [facility] Comment on above: Performed By: #### L IPA, CMP #### [facility] [address] [address] [address] Toy Macario Creatinine [Mass/Vol] 0.56 mg/dL Normal 0.52-1.04 [facility] Comment on above: Performed By: #### L IPA, CMP #### [facility] [address] [address] [address] Toy Macario EGFR-AF GIBRALTARIAN >60 Normal >=60 [facility] Comment on above: Performed By: #### L IPA, CMP #### [facility] [address] [address] [address] Toy Macario EGFR-NON AF GIBRALTARIAN >60 Normal >=60 [facility] Comment on above: Performed By: #### L IPA, CMP #### [facility] [address] [address] [address] Toy Macario Globulin (S) [Mass/Vol] 4.5 g/dL Normal T [facility] Comment on above: Performed By: #### L IPA, CMP #### [facility] [address] [address] [address] Toy Macario Glucose [Mass/Vol] 103 mg/dL Normal 74-106 [facility] Comment on above: Performed By: #### L IPA, CMP #### [facility] [address] [address] [address] Toy Macario Potassium [Moles/Vol] 3.2 mmol/L Critically low 3.4-5.0 [facility] Comment on above: Performed By: #### L IPA, CMP #### [facility] [address] [address] [address] Toy Macario Protein [Mass/Vol] 6.3 g/dL Normal 6.1-8.2 [facility] Comment on above: Performed By: #### L IPA, CMP #### [facility] [address] [address] [address] Toy Macario Sodium [Moles/Vol] 138 mmol/L Normal 137-145 [facility] Comment on above: Performed By: #### L IPA, CMP #### [facility] [address] [address] [address] Toy Macario Urea nitrogen [Mass/Vol] 7.0 mg/dL Normal 7.0-17.0 [facility] Comment on above: Performed By: #### L IPA, CMP #### [facility] [address] [place] [address] Dr. Toy Macario Urea nitrogen/Creatinine [Mass ratio] 12.5 mg/mg Normal [facility] Comment on above: Performed By: #### L IPA, CMP #### [facility] [address] [place] [address] Dr. Toy Macario CBC AUTO DIFFon 04-19-2021 BASO # 0.0 103/ul Normal 0.0-0.1 [facility] Comment on above: Performed By: #### C MP, LIPA #### [facility] [address] [place] [address] Dr. Toy Macario Basophils/100 WBC (Bld) 0.8 % Normal 0.2-2.0 [facility] Comment on above: Performed By: #### C MP, LIPA #### [facility] [address] [place] [address] Dr. Toy Macario EO # 0.1 103/ul Normal 0.0-0.7 [facility] Comment on above: Performed By: #### C MP, LIPA #### [facility] [address] [place] [address] Dr. Toy Macario Eosinophils/100 WBC (Bld) 1.9 % Normal 0.9-7.0 [facility] Comment on above: Performed By: #### C MP, LIPA #### [facility] [address] [place] [address] Dr. Toy Macario Erythrocyte distribution width (RBC) [Ratio] 14.0 % Normal 11.0-15.0 [facility] Comment on above: Performed By: #### C MP, LIPA #### [facility] [address] [place] [address] Dr. Toy Macario Hematocrit (Bld) [Volume fraction] 27.6 % Critically low 36.0-48.0 [facility] [facility] Comment on above: Performed By: #### C MP, LIPA #### [facility] [address] [place] [address] Dr. Toy Macario Hemoglobin (Bld) [Mass/Vol] 8.5 g/dL Critically low 12.0-16.0 [facility] Comment on above: Performed By: #### C MP, LIPA #### [facility] [address] [place] [address] Dr. Toy Macario IG # 0.03 10e3/ul Normal 0.00-0.03 [facility] Comment on above: Performed By: #### C MP, LIPA #### [facility] [address] [place] [address] Dr. Toy Macario IG % 0.6 % Critically high 0.0-0.5 [facility] Comment on above: Performed By: #### C MP, LIPA #### [facility] [address] [place] [address] Dr. Toy Macario LYMPH # 1.0 103/ul Critically low 1.2-3.8 [facility] Comment on above: Performed By: #### C MP, LIPA #### [facility] [address] [place] [address] Dr. Toy Macario Lymphocytes/100 WBC (Bld) 17.9 % Critically low 20.5-60.0 [facility] Comment on above: Performed By: #### C MP, LIPA #### [facility] [address] [place] [address] Dr. Toy Macario MANUAL DIFF REQ NO Normal [facility] Comment on above: Performed By: #### C MP, LIPA #### [facility] [address] [place] [address] Dr. Toy Macario MCH (RBC) [Entitic mass] 27.4 pg Normal 26.7-34.0 [facility] Comment on above: Performed By: #### C MP, LIPA #### [facility] [address] [place] [address] Dr. Toy Macario MCHC (RBC) [Mass/Vol] 30.8 g/dL Normal 29.9-35.2 [facility] Comment on above: Performed By: #### C MP, LIPA #### [facility] [address] [place] [address] Dr. Toy Macario MCV (RBC) [Entitic vol] 89.0 fL Normal 81.0-99.0 [facility] Comment on above: Performed By: #### C MP, LIPA #### [facility] [address] [place] [address] Dr. Toy Macario MONO # 0.4 103/ul Normal 0.3-0.8 [facility] Comment on above: Performed By: #### C MP, LIPA #### [facility] [address] [place] [address] Dr. Toy Macario Monocytes/100 WBC (Bld) 7.7 % Normal 1.7-12.0 [facility] Comment on above: Performed By: #### C MP, LIPA #### [facility] [address] [place] [address] Dr. Toy Macario NEUT # 3.8 103/ul Normal 1.4-6.5 [facility] Comment on above: Performed By: #### C MP, LIPA #### [facility] [address] [place] [address] Dr. Toy Macario Neutrophils/100 WBC (Bld) 71.1 % Normal 43.0-75.0 [facility] Comment on above: Performed By: #### C MP, LIPA #### [facility] [address] [place] [address] Dr. Toy Macario Platelet mean volume (Bld) [Entitic vol] 9.4 fL Critically low 9.5-13.5 [facility] Comment on above: Performed By: #### C MP, LIPA #### [facility] [address] [place] [address] Dr. Toy Macario PLT 259 103/ul Normal 150-450 [facility] Comment on above: Performed By: #### C MP, LIPA #### [facility] [address] [place] [address] Dr. Toy Macario RBC 3.10 106/ul Critically low 4.20-5.40 [facility] Comment on above: Performed By: #### C MP, LIPA #### [facility] [address] [place] [address] Dr. Toy Macario WBC 5.3 103/ul Normal 4.0-11.0 [facility] Comment on above: Performed By: #### C MP, LIPA #### [facility] [address] [place] [address] Dr. Toy Macario LIPASEon 04-19-2021 Lipase [Catalytic activity/Vol] 447.0 U/L Critically high 23.0-300.0 [facility] Comment on above: Performed By: #### C MP, LIPA #### [facility] [address] [place] [address] Dr. Toy Macario POINT OF CARE GLUCOSEon 04-06 Glucose [Mass/Vol] 107 mg/dL Critically high 74-106 [facility] Comment on above: Performed By: #### L IPA, CMP #### [facility] [address] [place] [address] Dr. Toy Macario PROF 14(COMP METB)on 022 Albumin [Mass/Vol] 1.8 g/dL Critically low 3.5-5.0 [facility] Comment on above: Performed By: #### C MP, LIPA #### [facility] [address] [place] [address] Dr. Toy Macario Albumin/Globulin [Mass ratio] 0.4 {ratio} Normal [facility] Comment on above: Performed By: #### C MP, LIPA #### [facility] [address] [place] [address] Dr. Toy Macario ALP [Catalytic activity/Vol] 81 U/L Normal 38-126 [facility] Comment on above: Performed By: #### C MP, LIPA #### [facility] [address] [place] [address] Dr. Toy Macario ALT [Catalytic activity/Vol] 27 U/L Normal 9-52 [facility] Comment on above: Performed By: #### C MP, LIPA #### [facility] [address] [place] [address] Dr. Toy Macario Anion gap [Moles/Vol] 9.3 mmol/L Normal [facility] Comment on above: Performed By: #### C MP, LIPA #### [facility] [address] [address] [address] Toy Macario AST [Catalytic activity/Vol] 21 U/L Normal 14-36 [facility] Comment on above: Performed By: #### C MP, LIPA #### [facility] [address] [address] [address] Toy Macario Bilirubin [Mass/Vol] 0.3 mg/dL Normal 0.2-1.3 [facility] Comment on above: Performed By: #### C MP, LIPA #### [facility] [address] [address] [address] Toy Macario Calcium [Mass/Vol] 9.0 mg/dL Normal 8.4-10.2 [facility] Comment on above: Performed By: #### C MP, LIPA #### [facility] [address] [address] [address] Toy Macario Chloride [Moles/Vol] 105 mmol/L Normal 98-107 [facility] Comment on above: Performed By: #### C MP, LIPA #### [facility] [address] [address] [address] Toy Macario CO2 [Moles/Vol] 27.9 mmol/L Normal 22.0-30.0 [facility] Comment on above: Performed By: #### C MP, LIPA #### [facility] [address] [address] [address] Toy Macario Creatinine [Mass/Vol] 0.61 mg/dL Normal 0.52-1.04 [facility] Comment on above: Performed By: #### C MP, LIPA #### [facility] [address] [address] [address] Toy Macario EGFR-AF GIBRALTARIAN >60 Normal >=60 [facility] Comment on above: Performed By: #### C MP, LIPA #### [facility] [address] [address] [address] Toy Macario EGFR-NON AF GIBRALTARIAN >60 Normal >=60 [facility] Comment on above: Performed By: #### C MP, LIPA #### [facility] [address] [address] [address] Toy Macario Globulin (S) [Mass/Vol] 4.8 g/dL Normal [facility] Comment on above: Performed By: #### C MP, LIPA #### [facility] [address] [address] [address] Toy Macario Glucose [Mass/Vol] 107 mg/dL Critically high 74-106 [facility] Comment on above: Performed By: #### C MP, LIPA #### [facility] [address] [place] [address] Dr. Toy Macario Potassium [Moles/Vol] 3.2 mmol/L Critically low 3.4-5.0 [facility] Comment on above: Performed By: #### C MP, LIPA #### [facility] [address] [place] [address] Dr. Toy Macario Protein [Mass/Vol] 6.6 g/dL Normal 6.1-8.2 [facility] Comment on above: Performed By: #### C MP, LIPA #### [facility] [address] [place] [address] Dr. Toy Macario Sodium [Moles/Vol] 139 mmol/L Normal 137-145 [facility] Comment on above: Performed By: #### C MP, LIPA #### [facility] [address] [place] [address] Dr. Toy Macario Urea nitrogen [Mass/Vol] 6.0 mg/dL Critically low 7.0-17.0 [facility] Comment on above: Performed By: #### C MP, LIPA #### [facility] [address] [place] [address] Dr. Toy Macario Urea nitrogen/Creatinine [Mass ratio] 9.8 mg/mg Normal [facility] Comment on above: Performed By: #### C MP, LIPA #### [facility] [address] [place] [address] Dr. Toy Macario CBC AUTO DIFFon 04-18-2021 BASO # 0.0 103/ul Normal 0.0-0.1 [facility] Comment on above: Performed By: #### L IPA, CMP #### [facility] [address] [place] [address] Dr. Toy Macario Basophils/100 WBC (Bld) 0.6 % Normal 0.2-2.0 [facility] Comment on above: Performed By: #### L IPA, CMP #### [facility] [address] [place] [address] Dr. Toy Macario EO # 0.1 103/ul Normal 0.0-0.7 [facility] Comment on above: Performed By: #### L IPA, CMP #### [facility] [address] [place] [address] Dr. Toy Macario Eosinophils/100 WBC (Bld) 1.8 % Normal 0.9-7.0 [facility] Comment on above: Performed By: #### L IPA, CMP #### [facility] [address] [place] [address] Dr. Toy Macario Erythrocyte distribution width (RBC) [Ratio] 14.0 % Normal 11.0-15.0 [facility] Comment on above: Performed By: #### L IPA, CMP #### [facility] [address] [place] [address] Dr. Toy Macario Hematocrit (Bld) [Volume fraction] 27.9 % Critically low 36.0-48.0 [facility] Comment on above: Performed By: #### L IPA, CMP #### [facility] [address] [place] [address] Dr. Toy Macario Hemoglobin (Bld) [Mass/Vol] 8.5 g/dL Critically low 12.0-16.0 [facility] Comment on above: Performed By: #### L IPA, CMP #### [facility] [address] [place] [address] Dr. Toy Macario IG # 0.03 10e3/ul Normal 0.00-0.03 [facility] Comment on above: Performed By: #### L IPA, CMP #### [facility] [address] [address] [address] Toy Macario IG % 0.4 % Normal 0.0-0.5 [facility] Comment on above: Performed By: #### L IPA, CMP #### [facility] [address] [address] [address] Toy Macario LYMPH # 1.0 103/ul Critically low 1.2-3.8 [facility] Comment on above: Performed By: #### L IPA, CMP #### [facility] [address] [address] [address] Toy Macario Lymphocytes/100 WBC (Bld) 14.3 % Critically low 20.5-60.0 [facility] Comment on above: Performed By: #### L IPA, CMP #### [facility] [address] [place] [address] Dr. Toy Macario MANUAL DIFF REQ NO Normal [facility] Comment on above: Performed By: #### L IPA, CMP #### [facility] [address] [place] [address] Dr. Toy Macario MCH (RBC) [Entitic mass] 27.5 pg Normal 26.7-34.0 [facility] Comment on above: Performed By: #### L IPA, CMP #### [facility] [address] [address] [address] Toy Macario MCHC (RBC) [Mass/Vol] 30.5 g/dL Normal 29.9-35.2 [facility] Comment on above: Performed By: #### L IPA, CMP #### [facility] [address] [place] [address] Dr. Toy Macario MCV (RBC) [Entitic vol] 90.3 fL Normal 81.0-99.0 [facility] Comment on above: Performed By: #### L IPA, CMP #### [facility] [address] [place] [address] Dr. Toy Macario MONO # 0.5 103/ul Normal 0.3-0.8 [facility] Comment on above: Performed By: #### L IPA, CMP #### [facility] [address] [place] [address] Dr. Toy Macario Monocytes/100 WBC (Bld) 6.8 % Normal 1.7-12.0 [facility] Comment on above: Performed By: #### L IPA, CMP #### [facility] [address] [place] [address] Dr. Toy Macario NEUT # 5.4 103/ul Normal 1.4-6.5 [facility] Comment on above: Performed By: #### L IPA, CMP #### [facility] [address] [place] [address] Dr. Toy Macario Neutrophils/100 WBC (Bld) 76.1 % Critically high 43.0-75.0 [facility] Comment on above: Performed By: #### L IPA, CMP #### [facility] [address] [place] [address] Dr. Toy Macario Platelet mean volume (Bld) [Entitic vol] 9.6 fL Normal 9.5-13.5 [facility] Comment on above: Performed By: #### L IPA, CMP #### [facility] [address] [place] [address] Dr. Toy Macario PLT 253 103/ul Normal 150-450 [facility] Comment on above: Performed By: #### L IPA, CMP #### [facility] [address] [place] [address] Dr. Toy Macario RBC 3.09 106/ul Critically low 4.20-5.40 [facility] Comment on above: Performed By: #### L IPA, CMP #### [facility] [address] [place] [address] Dr. Toy Macario WBC 7.1 103/ul Normal 4.0-11.0 [facility] Comment on above: Performed By: #### L IPA, CMP #### [facility] [address] [place] [address] ABD/PELV W CONon [...] by: URIEL GUILLEN Date: 2021-04-18 12:55 Normal [facility] LIPASEon 04-18-2021 Lipase [Catalytic activity/Vol] 330.0 U/L Critically high 23.0-300.0 [facility] Comment on above: Performed By: #### C MP, LIPA #### [facility] [address] [place] [address] Dr. Toy Macario OCC BLD IMMUNOASSAYon 2021 OCCULT BLOOD Negative Normal NEGATIVE [facility] Comment on above: Performed By: #### O DEVENDRA #### [facility] [address] [place] [address] Dr. Toy Macario POINT OF CARE GLUCOSEon 04-06 Glucose [Mass/Vol] 110 mg/dL Critically high 74-106 [facility] Comment on above: Performed By: #### C BC #### [facility] [address] [place] [address] Dr. Toy Macario Glucose [Mass/Vol] 103 mg/dL Normal 74-106 [facility] Comment on above: Performed By: #### C MP, LIPA #### [facility] [address] [place] [address] Dr. Toy Macario Glucose [Mass/Vol] 112 mg/dL Critically high 74-106 [facility] Comment on above: Performed By: #### L IPA, CMP #### [facility] [address] [place] [address] Dr. Toy Macario PROF 14(COMP METB)on 022 Albumin [Mass/Vol] 1.7 g/dL Critically low 3.5-5.0 [facility] Comment on above: Performed By: #### C MP, LIPA #### [facility] [address] [place] [address] Dr. Toy Macario Albumin/Globulin [Mass ratio] 0.4 {ratio} Normal [facility] Comment on above: Performed By: #### C MP, LIPA #### [facility] [address] [place] [address] Dr. Toy Macario ALP [Catalytic activity/Vol] 65 U/L Normal 38-126 [facility] Comment on above: Performed By: #### C MP, LIPA #### [facility] [address] [address] [address] Toy Macario ALT [Catalytic activity/Vol] 15 U/L Normal 9-52 [facility] Comment on above: Performed By: #### C MP, LIPA #### [facility] [address] [address] [address] Toy Macario Anion gap [Moles/Vol] 11.4 mmol/L Normal [facility] Comment on above: Performed By: #### C MP, LIPA #### [facility] [address] [place] [address] Dr. Toy Macario AST [Catalytic activity/Vol] 11 U/L Critically low 14-36 [facility] Comment on above: Performed By: #### C MP, LIPA #### [facility] [address] [place] [address] Dr. Toy Macario Bilirubin [Mass/Vol] 0.3 mg/dL Normal 0.2-1.3 [facility] Comment on above: Performed By: #### C MP, LIPA #### [facility] [address] [place] [address] Dr. Toy Macario Calcium [Mass/Vol] 8.7 mg/dL Normal 8.4-10.2 [facility] Comment on above: Performed By: #### C MP, LIPA #### [facility] [address] [place] [address] Dr. Toy Macario Chloride [Moles/Vol] 106 mmol/L Normal 98-107 [facility] Comment on above: Performed By: #### C MP, LIPA #### [facility] [address] [place] [address] Dr. Toy Macario CO2 [Moles/Vol] 27.1 mmol/L Normal 22.0-30.0 [facility] Comment on above: Performed By: #### C MP, LIPA #### [facility] [address] [place] [address] Dr. Toy Macario Creatinine [Mass/Vol] 0.60 mg/dL Normal 0.52-1.04 [facility] Comment on above: Performed By: #### C MP, LIPA #### [facility] [address] [address] [address] Toy Macario EGFR-AF GIBRALTARIAN >60 Normal >=60 [facility] Comment on above: Performed By: #### C MP, LIPA #### [facility] [address] [address] [address] Toy Macario EGFR-NON AF GIBRALTARIAN >60 Normal >=60 [facility] Comment on above: Performed By: #### C MP, LIPA #### [facility] [address] [address] [address] Toy Macario Globulin (S) [Mass/Vol] 4.6 g/dL Normal [facility] Comment on above: Performed By: #### C MP, LIPA #### [facility] [address] [address] [address] Toy Macario Glucose [Mass/Vol] 110 mg/dL Critically high 74-106 [facility] Comment on above: Performed By: #### C MP, LIPA #### [facility] [address] [address] [address] Toy Macario Potassium [Moles/Vol] 3.5 mmol/L Normal 3.4-5.0 [facility] Comment on above: Performed By: #### C MP, LIPA #### [facility] [address] [address] [address] Toy Macario Protein [Mass/Vol] 6.3 g/dL Normal 6.1-8.2 [facility] Comment on above: Performed By: #### C MP, LIPA #### [facility] [address] [address] [address] Toy Macario Sodium [Moles/Vol] 141 mmol/L Normal 137-145 [facility] Comment on above: Performed By: #### C MP, LIPA #### [facility] [address] [address] [address] Toy Macario Urea nitrogen [Mass/Vol] 10.0 mg/dL Normal 7.0-17.0 [facility] Comment on above: Performed By: #### C MP, LIPA #### [facility] [address] [place] [address] Dr. Toy Macario Urea nitrogen/Creatinine [Mass ratio] 16.7 mg/mg Normal [facility] Comment on above: Performed By: #### C MP, LIPA #### [facility] [address] [place] [address] Dr. Toy Macario CBC AUTO DIFFon 04-17-2021 BASO # 0.1 103/ul Normal 0.0-0.1 [facility] Comment on above: Performed By: #### C MP, LIPA #### [facility] [address] [place] [address] Dr. Toy Macario Basophils/100 WBC (Bld) 0.6 % Normal 0.2-2.0 [facility] Comment on above: Performed By: #### C MP, LIPA #### [facility] [address] [place] [address] Dr. Toy Macario EO # 0.1 103/ul Normal 0.0-0.7 [facility] Comment on above: Performed By: #### C MP, LIPA #### [facility] [address] [place] [address] Dr. Toy Macario Eosinophils/100 WBC (Bld) 1.6 % Normal 0.9-7.0 [facility] Comment on above: Performed By: #### C MP, LIPA #### [facility] [address] [place] [address] Dr. Toy Macario Erythrocyte distribution width (RBC) [Ratio] 14.4 % Normal 11.0-15.0 [facility] Comment on above: Performed By: #### C MP, LIPA #### [facility] [address] [place] [address] Dr. Toy Macario Hematocrit (Bld) [Volume fraction] 28.5 % Critically low 36.0-48.0 [facility] Comment on above: Performed By: #### C MP, LIPA #### [facility] [address] [place] [address] Dr. Toy Macario Hemoglobin (Bld) [Mass/Vol] 8.7 g/dL Critically low 12.0-16.0 [facility] Comment on above: Performed By: #### C MP, LIPA #### [facility] [address] [address] [address] Toy Macario IG # 0.06 10e3/ul Critically high 0.00-0.03 [facility] Comment on above: Performed By: #### C MP, LIPA #### [facility] [address] [address] [address] Toy Macario IG % 0.7 % Critically high 0.0-0.5 [facility] Comment on above: Performed By: #### C MP, LIPA #### [facility] [address] [place] [address] Dr. Toy Macario LYMPH # 1.1 103/ul Critically low 1.2-3.8 [facility] Comment on above: Performed By: #### C MP, LIPA #### [facility] [address] [place] [address] Dr. Toy Macario Lymphocytes/100 WBC (Bld) 12.2 % Critically low 20.5-60.0 [facility] Comment on above: Performed By: #### C MP, LIPA #### [facility] [address] [place] [address] Dr. Toy Macario MANUAL DIFF REQ NO Normal [facility] Comment on above: Performed By: #### C MP, LIPA #### [facility] [address] [address] [address] Toy Macario MCH (RBC) [Entitic mass] 27.6 pg Normal 26.7-34.0 [facility] Comment on above: Performed By: #### C MP, LIPA #### [facility] [address] [place] [address] Dr. Toy Macario MCHC (RBC) [Mass/Vol] 30.5 g/dL Normal 29.9-35.2 [facility] Comment on above: Performed By: #### C MP, LIPA #### [facility] [address] [place] [address] Dr. Toy Macario MCV (RBC) [Entitic vol] 90.5 fL Normal 81.0-99.0 [facility] Comment on above: Performed By: #### C MP, LIPA #### [facility] [address] [place] [address] Dr. Toy Macario MONO # 0.6 103/ul Normal 0.3-0.8 [facility] Comment on above: Performed By: #### C MP, LIPA #### [facility] [address] [place] [address] Dr. Toy Macario Monocytes/100 WBC (Bld) 7.2 % Normal 1.7-12.0 [facility] Comment on above: Performed By: #### C MP, LIPA #### [facility] [address] [place] [address] Dr. Toy Macario NEUT # 6.7 103/ul Critically high 1.4-6.5 [facility] Comment on above: Performed By: #### C MP, LIPA #### [facility] [address] [place] [address] Dr. Toy Macario Neutrophils/100 WBC (Bld) 77.7 % Critically high 43.0-75.0 [facility] Comment on above: Performed By: #### C MP, LIPA #### [facility] [address] [place] [address] Dr. Toy Macario Platelet mean volume (Bld) [Entitic vol] 9.4 fL Critically low 9.5-13.5 [facility] Comment on above: Performed By: #### C MP, LIPA #### [facility] [address] [place] [address] Dr. Toy Macario PLT 272 103/ul Normal 150-450 [facility] Comment on above: Performed By: #### C MP, LIPA #### [facility] [address] [place] [address] Dr. Toy Macario RBC 3.15 106/ul Critically low 4.20-5.40 [facility] Comment on above: Performed By: #### C LESLIE, LIPA #### [facility] [address] [place] [address] Dr. Toy Macario WBC 8.6 103/ul Normal 4.0-11.0 [facility] Comment on above: Performed By: #### C LESLIE, LIPA #### [facility] [address] [place] [address] Dr. Toy Macario CULTURE URINEon 04-17-2021 CULTURE [...] F Trimethoprim/Sulfameth oxazole >=320 R F Normal [facility] Comment on above: Performed By: #### C VDTBH #### [facility] [address] [place] [address] Dr. Toy Macario LIPASEon 04-17-2021 Lipase [Catalytic activity/Vol] 374.0 U/L Critically high 23.0-300.0 [facility] Comment on above: Performed By: #### L STEPHON CMP #### [facility] [address] [place] [address] Dr. Toy Macario POINT OF CARE GLUCOSEon 04-06 Glucose [Mass/Vol] 108 mg/dL Critically high 74-106 [facility] Comment on above: Performed By: #### L STEPHON CMP #### [facility] [address] [place] [address] Dr. Toy Macario Glucose [Mass/Vol] 105 mg/dL Normal 74-106 [facility] Comment on above: Performed By: #### C LESLIE LIPA #### [facility] [address] [address] [address] Toy Macario Glucose [Mass/Vol] 99 mg/dL Normal 74-106 [facility] Comment on above: Performed By: #### C BC #### [facility] [address] [place] [address] Dr. Toy Macario Glucose [Mass/Vol] 96 mg/dL Normal 74-106 [facility] Comment on above: Performed By: #### L IPA, CMP #### [facility] [address] [place] [address] Dr. Toy Macario PROF 14(COMP METB)on 022 Albumin [Mass/Vol] 1.9 g/dL Critically low 3.5-5.0 [facility] Comment on above: Performed By: #### L IPA, CMP #### [facility] [address] [place] [address] Dr. Toy Macario Albumin/Globulin [Mass ratio] 0.4 {ratio} Normal [facility] Comment on above: Performed By: #### L IPA, CMP #### [facility] [address] [place] [address] Dr. Toy Macario ALP [Catalytic activity/Vol] 68 U/L Normal 38-126 [facility] Comment on above: Performed By: #### L IPA, CMP #### [facility] [address] [place] [address] Dr. Toy Macario ALT [Catalytic activity/Vol] 21 U/L Normal 9-52 [facility] Comment on above: Performed By: #### L IPA, CMP #### [facility] [address] [place] [address] Dr. Toy Macario Anion gap [Moles/Vol] 14.2 mmol/L Normal [facility] Comment on above: Performed By: #### L IPA, CMP #### [facility] [address] [place] [address] Dr. Toy Macario AST [Catalytic activity/Vol] 13 U/L Critically low 14-36 [facility] Comment on above: Performed By: #### L IPA, CMP #### [facility] [address] [place] [address] Dr. Toy Macario Bilirubin [Mass/Vol] 0.5 mg/dL Normal 0.2-1.3 [facility] Comment on above: Performed By: #### L IPA, CMP #### [facility] [address] [place] [address] Dr. Toy Macario Calcium [Mass/Vol] 8.6 mg/dL Normal 8.4-10.2 [facility] Comment on above: Performed By: #### L IPA, CMP #### [facility] [address] [place] [address] Dr. Toy Macario Chloride [Moles/Vol] 106 mmol/L Normal 98-107 [facility] Comment on above: Performed By: #### L IPA, CMP #### [facility] [address] [place] [address] Dr. Toy Macario CO2 [Moles/Vol] 26.3 mmol/L Normal 22.0-30.0 [facility] Comment on above: Performed By: #### L IPA, CMP #### [facility] [address] [place] [address] Dr. Toy Macario Creatinine [Mass/Vol] 0.78 mg/dL Normal 0.52-1.04 [facility] Comment on above: Performed By: #### L IPA, CMP #### [facility] [address] [place] [address] Dr. Toy Macario EGFR-AF GIBRALTARIAN >60 Normal >=60 [facility] Comment on above: Performed By: #### L IPA, CMP #### [facility] [address] [place] [address] Dr. Toy Macario EGFR-NON AF GIBRALTARIAN >60 Normal >=60 [facility] Comment on above: Performed By: #### L IPA, CMP #### [facility] [address] [place] [address] Dr. Toy Macario Globulin (S) [Mass/Vol] 4.5 g/dL Normal T [facility] Comment on above: Performed By: #### L IPA, CMP #### [facility] [address] [place] [address] Dr. Toy Macario Glucose [Mass/Vol] 89 mg/dL Normal 74-106 [facility] Comment on above: Performed By: #### L IPA, CMP #### [facility] [address] [place] [address] Dr. Toy Macario Potassium [Moles/Vol] 3.4 mmol/L Normal 3.4-5.0 [facility] Comment on above: Performed By: #### L IPA, CMP #### [facility] [address] [place] [address] Dr. Toy Macario Protein [Mass/Vol] 6.4 g/dL Normal 6.1-8.2 [facility] Comment on above: Performed By: #### L IPA, CMP #### [facility] [address] [place] [address] Dr. Toy Macario Sodium [Moles/Vol] 143 mmol/L Normal 137-145 [facility] Comment on above: Performed By: #### L IPA, CMP #### [facility] [address] [place] [address] Dr. Toy Macario Urea nitrogen [Mass/Vol] 9.0 mg/dL Normal 7.0-17.0 [facility] Comment on above: Performed By: #### L IPA, CMP #### [facility] [address] [place] [address] Dr. Toy Macario Urea nitrogen/Creatinine [Mass ratio] 11.5 mg/mg Normal [facility] Comment on above: Performed By: #### L IPA, CMP #### [facility] [address] [place] [address] Dr. Toy Macario CBC AUTO DIFFon 04-16-2021 BASO # 0.1 103/ul Normal 0.0-0.1 [facility] Comment on above: Performed By: #### C MP, LIPA #### [facility] [address] [place] [address] Dr. Toy Macario Basophils/100 WBC (Bld) 0.4 % Normal 0.2-2.0 [facility] Comment on above: Performed By: #### C MP, LIPA #### [facility] [address] [address] [address] Toy Macario EO # 0.0 103/ul Normal 0.0-0.7 [facility] Comment on above: Performed By: #### C MP, LIPA #### [facility] [address] [address] [address] Toy Macario Eosinophils/100 WBC (Bld) 0.3 % Critically low 0.9-7.0 [facility] Comment on above: Performed By: #### C MP, LIPA #### [facility] [address] [place] [address] Dr. Toy Macario Erythrocyte distribution width (RBC) [Ratio] 14.1 % Normal 11.0-15.0 [facility] Comment on above: Performed By: #### C MP, LIPA #### [facility] [address] [place] [address] Dr. Toy Macario Hematocrit (Bld) [Volume fraction] 31.9 % Critically low 36.0-48.0 [facility] Comment on above: Performed By: #### C MP, LIPA #### [facility] [address] [place] [address] Dr. Toy Macario Hemoglobin (Bld) [Mass/Vol] 9.9 g/dL Critically low 12.0-16.0 [facility] Comment on above: Performed By: #### C MP, LIPA #### [facility] [address] [place] [address] Dr. Toy Macario IG # 0.08 10e3/ul Critically high 0.00-0.03 [facility] Comment on above: Performed By: #### C MP, LIPA #### [facility] [address] [place] [address] Dr. Toy Macario IG % 0.7 % Critically high 0.0-0.5 [facility] Comment on above: Performed By: #### C MP, LIPA #### [facility] [address] [place] [address] Dr. Toy Macario LYMPH # 0.9 103/ul Critically low 1.2-3.8 [facility] Comment on above: Performed By: #### C MP, LIPA #### [facility] [address] [place] [address] Dr. Toy Macario Lymphocytes/100 WBC (Bld) 7.8 % Critically low 20.5-60.0 [facility] Comment on above: Performed By: #### C MP, LIPA #### [facility] [address] [place] [address] Dr. Toy Macario MANUAL DIFF REQ NO Normal [facility] Comment on above: Performed By: #### C MP, LIPA #### [facility] [address] [place] [address] Dr. Toy Macario MCH (RBC) [Entitic mass] 27.5 pg Normal 26.7-34.0 [facility] Comment on above: Performed By: #### C MP, LIPA #### [facility] [address] [place] [address] Dr. Toy Macario MCHC (RBC) [Mass/Vol] 31.0 g/dL Normal 29.9-35.2 [facility] Comment on above: Performed By: #### C MP, LIPA #### [facility] [address] [place] [address] Dr. Toy Macario MCV (RBC) [Entitic vol] 88.6 fL Normal 81.0-99.0 [facility] Comment on above: Performed By: #### C MP, LIPA #### [facility] [address] [place] [address] Dr. Toy Macario MONO # 0.6 103/ul Normal 0.3-0.8 [facility] Comment on above: Performed By: #### C MP, LIPA #### [facility] [address] [place] [address] Dr. Toy Macario Monocytes/100 WBC (Bld) 5.3 % Normal 1.7-12.0 [facility] Comment on above: Performed By: #### C MP, LIPA #### [facility] [address] [place] [address] Dr. Toy Macario NEUT # 10.0 103/ul Critically high 1.4-6.5 [facility] Comment on above: Performed By: #### C MP, LIPA #### [facility] [address] [place] [address] Dr. Toy Macario Neutrophils/100 WBC (Bld) 85.5 % Critically high 43.0-75.0 [facility] Comment on above: Performed By: #### C MP, LIPA #### [facility] [address] [place] [address] Dr. Toy Macario Platelet mean volume (Bld) [Entitic vol] 9.3 fL Critically low 9.5-13.5 [facility] Comment on above: Performed By: #### C LESLIE, LIPA #### [facility] [address] [place] [address] Dr. Toy Macario PLT 321 103/ul Normal 150-450 [facility] Comment on above: Performed By: #### C MP, LIPA #### [facility] [address] [place] [address] Dr. Toy Macario RBC 3.60 106/ul Critically low 4.20-5.40 [facility] Comment on above: Performed By: #### C MP, LIPA #### [facility] [address] [place] [address] Dr. Toy Macario WBC 11.7 103/ul Critically high 4.0-11.0 [facility] Comment on above: Performed By: #### C MP, LIPA #### [facility] [address] [place] [address] Dr. Toy Macario LIPASEon 04-16-2021 Lipase [Catalytic activity/Vol] 667.0 U/L Critically high 23.0-300.0 [facility] Comment on above: Performed By: #### O DEVENDRA #### [facility] [address] [place] [address] Dr. Toy Macario POINT OF CARE GLUCOSEon 04-06 Glucose [Mass/Vol] 89 mg/dL Normal 74-106 [facility] Comment on above: Performed By: #### O DEVENDRA #### [facility] [address] [place] [address] Dr. Toy Macario Glucose [Mass/Vol] 92 mg/dL Normal 74-106 [facility] Comment on above: Performed By: #### L IPA, CMP #### [facility] [address] [place] [address] Dr. Toy Macario Glucose [Mass/Vol] 100 mg/dL Normal 74-106 [facility] Comment on above: Performed By: #### C VDTBH #### [facility] [address] [place] [address] Dr. Toy Macario PROF 14(COMP METB)on 022 Albumin [Mass/Vol] 1.9 g/dL Critically low 3.5-5.0 [facility] Comment on above: Performed By: #### O DEVENDRA #### [facility] [address] [place] [address] Dr. Toy Macario Albumin/Globulin [Mass ratio] 0.4 {ratio} Normal [facility] Comment on above: Performed By: #### O DEVENDRA #### [facility] [address] [place] [address] Dr. Toy Macario ALP [Catalytic activity/Vol] 69 U/L Normal 38-126 [facility] Comment on above: Performed By: #### O DEVENDRA #### [facility] [address] [place] [address] Dr. Toy Macario ALT [Catalytic activity/Vol] 27 U/L Normal 9-52 [facility] Comment on above: Performed By: #### O DEVENDRA #### [facility] [address] [place] [address] Dr. Toy Macario Anion gap [Moles/Vol] 13.5 mmol/L Normal [facility] Comment on above: Performed By: #### O DEVENDRA #### [facility] [address] [place] [address] Dr. Toy Macario AST [Catalytic activity/Vol] 20 U/L Normal 14-36 [facility] Comment on above: Performed By: #### O DEVENDRA #### [facility] [address] [address] [address] Toy Macario Bilirubin [Mass/Vol] 0.6 mg/dL Normal 0.2-1.3 [facility] Comment on above: Performed By: #### O DEVENDRA #### [facility] [address] [address] [address] Toy Macario Calcium [Mass/Vol] 8.7 mg/dL Normal 8.4-10.2 [facility] Comment on above: Performed By: #### O DEVENDRA #### [facility] [address] [place] [address] Dr. Toy Macario Chloride [Moles/Vol] 106 mmol/L Normal 98-107 [facility] Comment on above: Performed By: #### O DEVENDRA #### [facility] [address] [place] [address] Dr. Toy Macario CO2 [Moles/Vol] 24.7 mmol/L Normal 22.0-30.0 [facility] Comment on above: Performed By: #### O DEVENDRA #### [facility] [address] [place] [address] Dr. Toy Macario Creatinine [Mass/Vol] 0.92 mg/dL Normal 0.52-1.04 [facility] Comment on above: Performed By: #### O DEVENDRA #### [facility] [address] [place] [address] Dr. Toy Macario EGFR-AF GIBRALTARIAN >60 Normal >=60 [facility] Comment on above: Performed By: #### O DEVENDRA #### [facility] [address] [place] [address] Dr. Toy Macario EGFR-NON AF GIBRALTARIAN >60 Normal >=60 [facility] Comment on above: Performed By: #### O DEVENDRA #### [facility] [address] [place] [address] Dr. Toy Macario Globulin (S) [Mass/Vol] 4.7 g/dL Normal T [facility] Comment on above: Performed By: #### O DEVENDRA #### [facility] [address] [address] [address] Toy Macario Glucose [Mass/Vol] 126 mg/dL Critically high 74-106 [facility] Comment on above: Performed By: #### O DEVENDRA #### [facility] [address] [place] [address] Dr. Toy Macario Potassium [Moles/Vol] 3.2 mmol/L Critically low 3.4-5.0 [facility] Comment on above: Performed By: #### O DEVENDRA #### [facility] [address] [place] [address] Dr. Toy Macario Protein [Mass/Vol] 6.6 g/dL Normal 6.1-8.2 [facility] Comment on above: Performed By: #### O DEVENDRA #### [facility] [address] [place] [address] Dr. Toy Macario Sodium [Moles/Vol] 141 mmol/L Normal 137-145 [facility] Comment on above: Performed By: #### O DEVENDRA #### [facility] [address] [place] [address] Dr. Toy Macario Urea nitrogen [Mass/Vol] 8.0 mg/dL Normal 7.0-17.0 [facility] Comment on above: Performed By: #### O DEVENDRA #### [facility] [address] [place] [address] Dr. Toy Macario Urea nitrogen/Creatinine [Mass ratio] 8.7 mg/mg Normal [facility] Comment on above: Performed By: #### O DEVENDRA #### [facility] [address] [place] [address] Dr. Tyo Macario AMYLASEon 04-15-2021 Amylase [Catalytic activity/Vol] 97 U/L Normal 31-110 [facility] Comment on above: Performed By: #### C MP, LIPA #### [facility] [address] [place] [address] Dr. Toy Macario CBC AUTO DIFFon 04-15-2021 BASO # 0.1 103/ul Normal 0.0-0.1 [facility] Comment on above: Performed By: #### C BC #### [facility] [address] [place] [address] Dr. Toy Macario Basophils/100 WBC (Bld) 0.5 % Normal 0.2-2.0 [facility] Comment on above: Performed By: #### C BC #### [facility] [address] [place] [address] Dr. Toy Macario EO # 0.0 103/ul Normal 0.0-0.7 [facility] Comment on above: Performed By: #### C BC #### [facility] [address] [place] [address] Dr. Toy Macario Eosinophils/100 WBC (Bld) 0.3 % Critically low 0.9-7.0 [facility] Comment on above: Performed By: #### C BC #### [facility] [address] [place] [address] Dr. Toy Macario Erythrocyte distribution width (RBC) [Ratio] 13.9 % Normal 11.0-15.0 [facility] Comment on above: Performed By: #### C BC #### [facility] [address] [place] [address] Dr. Toy Macario Hematocrit (Bld) [Volume fraction] 34.2 % Critically low 36.0-48.0 [facility] Comment on above: Performed By: #### C BC #### [facility] [address] [place] [address] Dr. Toy Macario Hemoglobin (Bld) [Mass/Vol] 10.8 g/dL Critically low 12.0-16.0 [facility] Comment on above: Performed By: #### C BC #### [facility] [address] [place] [address] Dr. Toy Macario IG # 0.05 10e3/ul Critically high 0.00-0.03 [facility] Comment on above: Performed By: #### C BC #### [facility] [address] [place] [address] Dr. Toy Macario IG % 0.4 % Normal 0.0-0.5 [facility] Comment on above: Performed By: #### C BC #### [facility] [address] [place] [address] Dr. Toy Macario LYMPH # 0.9 103/ul Critically low 1.2-3.8 [facility] Comment on above: Performed By: #### C BC #### [facility] [address] [place] [address] Dr. Toy Macario Lymphocytes/100 WBC (Bld) 8.4 % Critically low 20.5-60.0 [facility] Comment on above: Performed By: #### C BC #### [facility] [address] [place] [address] Dr. Toy Macario MANUAL DIFF REQ NO Normal [facility] Comment on above: Performed By: #### C BC #### [facility] [address] [place] [address] Dr. Toy Macario MCH (RBC) [Entitic mass] 28.1 pg Normal 26.7-34.0 [facility] Comment on above: Performed By: #### C BC #### [facility] [address] [place] [address] Dr. Toy Macario MCHC (RBC) [Mass/Vol] 31.6 g/dL Normal 29.9-35.2 [facility] Comment on above: Performed By: #### C BC #### [facility] [address] [place] [address] Dr. Toy Macario MCV (RBC) [Entitic vol] 88.8 fL Normal 81.0-99.0 [facility] Comment on above: Performed By: #### C BC #### [facility] [address] [place] [address] Dr. Toy Macario MONO # 0.7 103/ul Normal 0.3-0.8 [facility] Comment on above: Performed By: #### C BC #### [facility] [address] [place] [address] Dr. Toy Macario Monocytes/100 WBC (Bld) 6.3 % Normal 1.7-12.0 [facility] Comment on above: Performed By: #### C BC #### [facility] [address] [address] [address] Toy Macario NEUT # 9.4 103/ul Critically high 1.4-6.5 [facility] Comment on above: Performed By: #### C BC #### [facility] [id number] Toy Macario Neutrophils/100 WBC (Bld) 84.1 % Critically high 43.0-75.0 [facility] Comment on above: Performed By: #### C BC #### [facility] [address] [address] [address] Toy Macario Platelet mean volume (Bld) [Entitic vol] 9.1 fL Critically low 9.5-13.5 [facility] Comment on above: Performed By: #### C BC #### [facility] [address] [place] [address] Dr. Toy Macario PLT 361 103/ul Normal 150-450 [facility] Comment on above: Performed By: #### C BC #### [facility] [address] [address] [address] Toy Macario RBC 3.85 106/ul Critically low 4.20-5.40 [facility] Comment on above: Performed By: #### C BC #### [facility] [address] [place], [place] [id number] Dr. Toy Macario WBC 11.2 103/ul Critically high 4.0-11.0 [facility] Comment on above: Performed By: #### C BC #### [facility] [address] [place] [address] ABD/PELV W CONon [...] URIEL GUILLEN Date: 2021-04-15 11:33 Normal [facility] CULTURE BLOODon 04-15-2021 Microscopic examination of blood, culture Culture Observations: NO GROWTH AT 5 DAYS. Normal [facility] Comment on above: Performed By: #### C [facility] #### [facility] [address] [place] [address] Dr. Toy Macario Covid-19 PCR ([facility])on 04-06 SARS-CoV-2 (COVID-19) RNA PITO+probe Ql (Unsp spec) Not detected Normal NOT DETECTED [facility] Comment on above: Result Comment: When [...] for this test is supported by the [place] [employer] and [employer]'s declaration that [...] used). Performed By: #### C BC #### [facility] [address] [place] [address] Dr. Toy Macario ER URINE PROFILEon 2 Bilirubin Ql (U) Negative Normal NEGATIVE [facility] Comment on above: Performed By: #### C MP, LIPA #### [facility] [address] [place] [address] Dr. Toy Macario Clarity (U) CLOUDY Abnormal CLEAR [facility] Comment on above: Performed By: #### C MP, LIPA #### [facility] [address] [place] [address] Dr. Toy Macario Color (U) YELLOW Normal YELLOW [facility] Comment on above: Performed By: #### C MP, LIPA #### [facility] [address] [place] [address] Dr. Toy Macario ERUAHD A micrscopic examination will be performed if indicated. Normal [facility] Comment on above: Performed By: #### C MP, LIPA #### [facility] [address] [place] [address] Dr. Toy Macario Glucose Ql (U) Negative Normal NEGATIVE [facility] Comment on above: Performed By: #### C MP, LIPA #### [facility] [address] [place] [address] Dr. Toy Macario Hemoglobin Ql (U) SMALL Abnormal NEGATIVE [facility] Comment on above: Performed By: #### C MP, LIPA #### [facility] [address] [place] [address] Dr. Toy Macario Ketones Ql (U) 15 mg/dl Abnormal NEGATIVE [facility] Comment on above: Performed By: #### C MP, LIPA #### [facility] [address] [place] [address] Dr. Toy Macario LEUKOCYTES TRACE Abnormal NEGATIVE [facility] [facility] Comment on above: Performed By: #### C MP, LIPA #### [facility] [address] [place] [address] Dr. Toy Macario Nitrite Ql (U) Negative Normal NEGATIVE [facility] Comment on above: Performed By: #### C MP, LIPA #### [facility] [address] [place] [address] Dr. Toy Macario pH (U) 6.0 [pH] Normal 5-9 [facility] Comment on above: Performed By: #### C MP, LIPA #### [facility] [address] [place] [address] Dr. Toy Macario Protein (U) [Mass/Vol] 100 mg/dL Abnormal NEGAT CHRISTINA/ TRACE [facility] Comment on above: Performed By: #### C MP, LIPA #### [facility] [address] [place] [address] Dr. Toy Macario SPEC GRAVITY 1.025 Normal 1.005-<=1.0 25 [facility] Comment on above: Performed By: #### C MP, LIPA #### [facility] [address] [place] [address] Dr. Toy Macario UR MICRO IND INDICATED Normal [facility] Comment on above: Performed By: #### C MP, LIPA #### [facility] [address] [place] [address] Dr. Toy Macario Urobilinogen Qn (U) 1.0 {Lisha'U}/dL Normal 0.2 - 1. 0 [facility] Comment on above: Performed By: #### C MP, LIPA #### [facility] [address] [place] [address] Dr. Toy Macario LIPASEon 04-15-2021 Lipase [Catalytic activity/Vol] 929.0 U/L Critically high 23.0-300.0 [facility] Comment on above: Performed By: #### C MP, LIPA #### [facility] [address] [place] [address] Dr. Toy Macario LIVER PROFILEon 04-15-2021 Albumin [Mass/Vol] 2.3 g/dL Critically low 3.5-5.0 [facility] Comment on above: Performed By: #### C MP, LIPA #### [facility] [address] [place] [address] Dr. Toy Macario Albumin/Globulin [Mass ratio] 0.5 {ratio} Normal [facility] Comment on above: Performed By: #### C MP, LIPA #### [facility] [address] [place] [address] Dr. Toy Macario ALP [Catalytic activity/Vol] 73 U/L Normal 38-126 [facility] Comment on above: Performed By: #### C MP, LIPA #### [facility] [address] [place] [address] Dr. Toy Macario ALT [Catalytic activity/Vol] 29 U/L Normal 9-52 [facility] Comment on above: Performed By: #### C MP, LIPA #### [facility] [address] [place] [address] Dr. Toy Macario AST [Catalytic activity/Vol] 21 U/L Normal 14-36 [facility] Comment on above: Performed By: #### C MP, LIPA #### [facility] [address] [place] [address] Dr. Toy Macario BILI, CONJUGATED 0.1 mg/dL Normal 0.0-0.3 [facility] Comment on above: Performed By: #### C MP, LIPA #### [facility] [address] [place] [address] Dr. Toy Macario Bilirubin [Mass/Vol] 0.4 mg/dL Normal 0.2-1.3 [facility] Comment on above: Performed By: #### C MP, LIPA #### [facility] [address] [place] [address] Dr. Toy Macario Globulin (S) [Mass/Vol] 5.1 g/dL Normal T [facility] Comment on above: Performed By: #### C MP, LIPA #### [facility] [address] [place] [address] Dr. Toy Macario Protein [Mass/Vol] 7.4 g/dL Normal 6.1-8.2 [facility] Comment on above: Performed By: #### C MP, LIPA #### [facility] [address] [place] [address] Dr. Toy Macario URon 04-15-2021 , QUAL Negative Normal NEGATIVE [facility] Comment on above: Performed By: #### P REGU #### [facility] [address] [place] [address] Dr. Toy Macario PROF CHEM 8 (BAS METB)on Anion gap [Moles/Vol] 10.5 mmol/L Normal [facility] Comment on above: Performed By: #### C MP, LIPA #### [facility] [address] [place] [address] Dr. Toy Macario Calcium [Mass/Vol] 9.0 mg/dL Normal 8.4-10.2 [facility] Comment on above: Performed By: #### C MP, LIPA #### [facility] [address] [place] [address] Dr. Toy Macario Chloride [Moles/Vol] 102 mmol/L Normal 98-107 [facility] Comment on above: Performed By: #### C MP, LIPA #### [facility] [address] [place] [address] Dr. Toy Macario CO2 [Moles/Vol] 27.5 mmol/L Normal 22.0-30.0 [facility] Comment on above: Performed By: #### C MP, LIPA #### [facility] [address] [address] [address] Toy Macario Creatinine [Mass/Vol] 0.68 mg/dL Normal 0.52-1.04 [facility] Comment on above: Performed By: #### C MP, LIPA #### [facility] [address] [address] [address] Toy Macario EGFR-AF GIBRALTARIAN >60 Normal >=60 [facility] Comment on above: Performed By: #### C MP, LIPA #### [facility] [address] [address] [address] Toy Macario EGFR-NON AF GIBRALTARIAN >60 Normal >=60 [facility] Comment on above: Performed By: #### C MP, LIPA #### [facility] [address] [address] [address] Toy Macario Glucose [Mass/Vol] 137 mg/dL Critically high 74-106 T [facility] Comment on above: Performed By: #### C MP, LIPA #### [facility] [address] [address] [address] Toy Macario Potassium [Moles/Vol] 3.5 mmol/L Normal 3.4-5.0 [facility] Comment on above: Performed By: #### C MP, LIPA #### [facility] [address] [address] [address] Toy Macario Sodium [Moles/Vol] 139 mmol/L Normal 137-145 [facility] Comment on above: Performed By: #### C MP, LIPA #### [facility] [address] [address] [address] Toy Macario Urea nitrogen [Mass/Vol] 7.0 mg/dL Normal 7.0-17.0 [facility] Comment on above: Performed By: #### C MP, LIPA #### [facility] [address] [address] [address] Toy Macario Urea nitrogen/Creatinine [Mass ratio] 10.3 mg/mg Normal [facility] Comment on above: Performed By: #### C MP, LIPA #### [facility] [address] [address] [address] Toy Macario URINE MICROSCOPIC ONLYon AMORPHOUS CRYSTALS MODERATE Normal [facility] Comment on above: Performed By: #### C MP, LIPA #### [facility] [address] [place] [address] Dr. Toy Macario BACTERIA SMALL Abnormal NONE SEEN [facility] Comment on above: Performed By: #### C MP, LIPA #### [facility] [address] [address] [address] Toy Macario Bacteria identified Cx Nom (U) INDICATED Normal [facility] Comment on above: Performed By: #### C MP, LIPA #### [facility] [address] [place] [address] Dr. Toy Macario CAST NONE SEEN Normal NONE SEEN [facility] Comment on above: Performed By: #### C MP, LIPA #### [facility] [address] [place] [address] Dr. Toy Macario Crystals LM Nom (Urine sed) SEEN Abnormal NONE SEEN [facility] Comment on above: Performed By: #### C MP, LIPA #### [facility] [address] [place] [address] Dr. Toy Macario Epithelial cells LM Ql (Urine sed) FEW Abnormal NONE SEEN /RARE [facility] Comment on above: Performed By: #### C MP, LIPA #### [facility] [address] [place] [address] Dr. Toy Macario MUCOUS SMALL Abnormal NONE SEEN [facility] Comment on above: Performed By: #### C MP, LIPA #### [facility] [address] [place] [address] Dr. Toy Macario RBC 2-5 Abnormal 0-2 [facility] Comment on above: Performed By: #### C MP, LIPA #### [facility] [address] [place] [address] Dr. Toy Macario WBC 5-10 Abnormal NONE SEEN [facility] Comment on above: Performed By: #### C MP, LIPA #### [facility] [address] [place], [place] [id number] Dr. Toy Macario CBC AUTO DIFFon 03-19-2021 BASO # 0.1 103/ul Normal 0.0-0.1 [facility] Comment on above: Performed By: #### O DEVENDRA #### [facility] [address] [place] [address] Dr. Toy Macario Basophils/100 WBC (Bld) 0.6 % Normal 0.2-2.0 [facility] Comment on above: Performed By: #### O DEVENDRA #### [facility] [address] [place] [address] Dr. Toy Macario EO # 0.1 103/ul Normal 0.0-0.7 [facility] Comment on above: Performed By: #### O DEVENDRA #### [facility] [address] [place] [address] Dr. Toy Macario Eosinophils/100 WBC (Bld) 0.5 % Critically low 0.9-7.0 [facility] Comment on above: Performed By: #### O DEVENDRA #### [facility] [address] [place] [address] Dr. Toy Macario Erythrocyte distribution width (RBC) [Ratio] 14.7 % Normal 11.0-15.0 [facility] Comment on above: Performed By: #### O DEVENDRA #### [facility] [address] [place] [address] Dr. Toy Macario Hematocrit (Bld) [Volume fraction] 40.8 % Normal 36.0-48.0 [facility] Comment on above: Performed By: #### O DEVENDRA #### [facility] [address] [place] [address] Dr. Toy Macario Hemoglobin (Bld) [Mass/Vol] 12.8 g/dL Normal 12.0-16.0 [facility] Comment on above: Performed By: #### O DEVENDRA #### [facility] [address] [place] [address] Dr. Toy Macario IG # 0.04 10e3/ul Critically high 0.00-0.03 [facility] Comment on above: Performed By: #### O DEVENDRA #### [facility] [address] [address] [address] Toy Macario IG % 0.3 % Normal 0.0-0.5 [facility] Comment on above: Performed By: #### O DEVENDRA #### [facility] [address] [address] [address] Toy Macario LYMPH # 1.0 103/ul Critically low 1.2-3.8 [facility] Comment on above: Performed By: #### O DEVENDRA #### [facility] [address] [address] [address] Toy Macario Lymphocytes/100 WBC (Bld) 8.1 % Critically low 20.5-60.0 [facility] Comment on above: Performed By: #### O DEVENDRA #### [facility] [address] [place] [address] Dr. Toy Macario MANUAL DIFF REQ NO Normal [facility] Comment on above: Performed By: #### O DEVENDRA #### [facility] [address] [place] [address] Dr. Toy Macario MCH (RBC) [Entitic mass] 28.1 pg Normal 26.7-34.0 [facility] Comment on above: Performed By: #### O DEVENDRA #### [facility] [address] [place] [address] Dr. Toy Macario MCHC (RBC) [Mass/Vol] 31.4 g/dL Normal 29.9-35.2 [facility] Comment on above: Performed By: #### O DEVENDRA #### [facility] [address] [place] [address] Dr. Toy Macario MCV (RBC) [Entitic vol] 89.7 fL Normal 81.0-99.0 [facility] Comment on above: Performed By: #### O DEVENDRA #### [facility] [address] [address] [address] Toy Macario MONO # 0.8 103/ul Normal 0.3-0.8 [facility] Comment on above: Performed By: #### O DEVENDRA #### [facility] [address] [place] [address] Dr. Toy Macario Monocytes/100 WBC (Bld) 6.3 % Normal 1.7-12.0 [facility] Comment on above: Performed By: #### O DEVENDRA #### [facility] [address] [place] [address] Dr. Toy Macario NEUT # 10.0 103/ul Critically high 1.4-6.5 [facility] Comment on above: Performed By: #### O DEVENDRA #### [facility] [address] [place] [address] Dr. Toy Macario Neutrophils/100 WBC (Bld) 84.2 % Critically high 43.0-75.0 [facility] Comment on above: Performed By: #### O DEVENDRA #### [facility] [address] [place] [address] Dr. Toy Macario Platelet mean volume (Bld) [Entitic vol] 9.5 fL Normal 9.5-13.5 [facility] Comment on above: Performed By: #### O DEVENDRA #### [facility] [address] [place] [address] Dr. Toy Macario PLT 216 103/ul Normal 150-450 [facility] Comment on above: Performed By: #### O DEVENDRA #### [facility] [address] [place] [address] Dr. Toy Macario RBC 4.55 106/ul Normal 4.20-5.40 [facility] Comment on above: Performed By: #### O DEVENDRA #### [facility] [address] [place] [address] Dr. Toy Macario WBC 11.9 103/ul Critically high 4.0-11.0 [facility] Comment on above: Performed By: #### O DEVENDRA #### [facility] [address] [place] [address] ABD/PELV W CONon [...] ART NIX Date: 2021-03-19 15:19 Normal [facility] CULTURE URINEon 03-19-2021 CULTURE URINE Culture Observations : LIGHT GROWTH OF MIXED GENITAL CHRIS. NO POTENTIAL PATHOGENS SEEN. Normal [facility] Comment on above: Performed By: #### C [facility] #### [facility] [address] [place] [address] Dr. Toy Macario Covid-19 PCR ([facility])on 03-06 SARS-CoV-2 (COVID-19) RNA PITO+probe Ql (Unsp spec) Not detected Normal NOT DETECTED [facility] Comment on above: Result Comment: When [...] for this test is supported by the [employer] of Health and Human Service's declaration that [...] Performed By: #### C MP, LIPA #### [facility] [address] [place] [address] Dr. Toy Macario ER URINE PROFILEon 2 Bilirubin Ql (U) SMALL Abnormal NEGATIVE [facility] Comment on above: Performed By: #### C VDTBH #### [facility] [address] [place] [address] Dr. Toy Macario Clarity (U) SL CLOUDY Abnormal CLEAR [facility] Comment on above: Performed By: #### C VDTBH #### [facility] [address] [place] [address] Dr. Toy Macario Color (U) YELLOW Normal YELLOW [facility] Comment on above: Performed By: #### C VDTBH #### [facility] [address] [place] [address] Dr. Toy Macario ERUBARBARA A micrscopic examination will be performed if indicated. Normal [facility] Comment on above: Performed By: #### C VDTBH #### [facility] [address] [place] [address] Dr. Toy Macario Glucose Ql (U) Negative Normal NEGATIVE [facility] Comment on above: Performed By: #### C VDTBH #### [facility] [address] [place] [address] Dr. Toy Macario Hemoglobin Ql (U) Negative Normal NEGATIVE [facility] Comment on above: Performed By: #### C VDTBH #### [facility] [address] [place] [address] Dr. Toy Macario Ketones Ql (U) Negative Normal NEGATIVE [facility] Comment on above: Performed By: #### C VDTBH #### [facility] [address] [place] [address] Dr. Toy Macario LEUKOCYTES SMALL Abnormal NEGATIVE [facility] Comment on above: Performed By: #### C VDTBH #### [facility] [address] [place] [address] Dr. Toy Macario Nitrite Ql (U) Negative Normal NEGATIVE [facility] Comment on above: Performed By: #### C VDTBH #### [facility] [address] [place] [address] Dr. Toy Macario pH (U) 6.0 [pH] Normal 5-9 [facility] Comment on above: Performed By: #### C VDTBH #### [facility] [address] [place] [address] Dr. Toy Macario Protein (U) [Mass/Vol] 30 mg/dL Abnormal NEGAT CHRISTINA/ TRACE [facility] Comment on above: Performed By: #### C VDTBH #### [facility] [address] [place] [address] Dr. Toy Macario SPEC GRAVITY >=1.030 Abnormal 1.005-<=1.0 25 [facility] Comment on above: Performed By: #### C VDTBH #### [facility] [address] [place] [address] Dr. Toy Macario UR MICRO IND INDICATED Normal [facility] Comment on above: Performed By: #### C VDTBH #### [facility] [address] [place] [address] Dr. Toy Macario Urobilinogen Qn (U) 1.0 {Lisha'U}/dL Normal 0.2 - 1. 0 [facility] Comment on above: Performed By: #### C VDTBH #### [facility] [address] [place] [address] Dr. Toy Macario INFLUENZA A AND B AGon 03-19 INFLUANEGH SEE BELOW Normal [facility] Comment on above: Result Comment: Nega tive for Flu A protein angiten. Infection due to Flu A cannot be ruled out. Flu A angiten in the sample may be below the detection limit of the test. Performed By: #### L IPA, CMP #### [facility] [address] [place] [address] Dr. Toy Macario INFLUBNEGH SEE BELOW Normal [facility] Comment on above: Result Comment: Nega tive for Flu B protein antigen. Infection due to Flu B cannot be ruled out. Flu B antigen in the sample may be below the detection limit of the test. Performed By: #### L IPA, CMP #### [facility] [address] [place] [address] Dr. Toy Macario INFLUENZA A AG Negative Normal NEGATIVE SEE COMMENT [facility] Comment on above: Performed By: #### L IPA, CMP #### [facility] [address] [place] [address] Dr. Toy Macario INFLUENZA B AG Negative Normal NEGATIVE SEE COMMENT [facility] Comment on above: Performed By: #### L IPA, CMP #### [facility] [address] [place] [address] Dr. Toy Macario INTERNAL CONTROLS Within Normal Limits Normal Wi thin Normal Limits [facility] Comment on above: Performed By: #### L IPA, CMP #### [facility] [address] [place] [address] Dr. Toy Macario LIPASEon 03-19-2021 Lipase [Catalytic activity/Vol] 134.0 U/L Normal 23.0-300.0 [facility] Comment on above: Performed By: #### C MP, LIPA #### [facility] [address] [place] [address] Dr. Toy Macaroi URon 03-19-2021 , QUAL Negative Normal NEGATIVE [facility] Comment on above: Performed By: #### O DEVENDRA #### [facility] [address] [address] [address] Toy Macario PROF 14(COMP METB)on 022 Albumin [Mass/Vol] 3.3 g/dL Critically low 3.5-5.0 [facility] Comment on above: Performed By: #### C MP, LIPA #### [facility] [address] [place] [address] Dr. Toy Macario Albumin/Globulin [Mass ratio] 0.8 {ratio} Normal [facility] Comment on above: Performed By: #### C MP, LIPA #### [facility] [address] [place] [address] Dr. Toy Macario ALP [Catalytic activity/Vol] 151 U/L Critically high 38-126 [facility] Comment on above: Performed By: #### C MP, LIPA #### [facility] [address] [place] [address] Dr. Toy Macario ALT [Catalytic activity/Vol] 105 U/L Critically high 9-52 [facility] Comment on above: Performed By: #### C MP, LIPA #### [facility] [address] [place] [address] Dr. Toy Macario Anion gap [Moles/Vol] 11.6 mmol/L Normal [facility] Comment on above: Performed By: #### C MP, LIPA #### [facility] [address] [address] [address] Toy Macario AST [Catalytic activity/Vol] 222 U/L Critically high 14-36 [facility] Comment on above: Performed By: #### C MP, LIPA #### [facility] [address] [address] [address] Toy Macario Bilirubin [Mass/Vol] 1.3 mg/dL Normal 0.2-1.3 [facility] Comment on above: Performed By: #### C MP, LIPA #### [facility] [address] [address] [address] Toy Macario Calcium [Mass/Vol] 8.8 mg/dL Normal 8.4-10.2 [facility] Comment on above: Performed By: #### C MP, LIPA #### [facility] [address] [address] [address] Toy Macario Chloride [Moles/Vol] 107 mmol/L Normal 98-107 [facility] Comment on above: Performed By: #### C MP, LIPA #### [facility] [address] [place] [address] Dr. Toy Macario CO2 [Moles/Vol] 25.7 mmol/L Normal 22.0-30.0 [facility] Comment on above: Performed By: #### C MP, LIPA #### [facility] [address] [place] [address] Dr. Toy Macario Creatinine [Mass/Vol] 0.92 mg/dL Normal 0.52-1.04 [facility] Comment on above: Performed By: #### C MP, LIPA #### [facility] [address] [place] [address] Dr. Toy Macario EGFR-AF GIBRALTARIAN >60 Normal >=60 [facility] Comment on above: Performed By: #### C MP, LIPA #### [facility] [address] [place] [address] Dr. Toy Macario EGFR-NON AF GIBRALTARIAN >60 Normal >=60 [facility] Comment on above: Performed By: #### C MP, LIPA #### [facility] [address] [place] [address] Dr. Toy Macario Globulin (S) [Mass/Vol] 3.9 g/dL Normal [facility] Comment on above: Performed By: #### C MP, LIPA #### [facility] [address] [place] [address] Dr. Toy Macario Glucose [Mass/Vol] 168 mg/dL Critically high 74-106 [facility] Comment on above: Performed By: #### C MP, LIPA #### [facility] [address] [place] [address] Dr. Toy Macario Potassium [Moles/Vol] 4.3 mmol/L Normal 3.4-5.0 [facility] Comment on above: Performed By: #### C MP, LIPA #### [facility] [address] [place] [address] Dr. Toy Macario Protein [Mass/Vol] 7.2 g/dL Normal 6.1-8.2 [facility] Comment on above: Performed By: #### C MP, LIPA #### [facility] [address] [place] [address] Dr. Toy Macario Sodium [Moles/Vol] 140 mmol/L Normal 137-145 [facility] Comment on above: Performed By: #### C MP, LIPA #### [facility] [address] [place] [address] Dr. Toy Macario Urea nitrogen [Mass/Vol] 8.0 mg/dL Normal 7.0-17.0 [facility] Comment on above: Performed By: #### C MP, LIPA #### [facility] [address] [place] [address] Dr. Toy Macario Urea nitrogen/Creatinine [Mass ratio] 8.7 mg/mg Normal [facility] Comment on above: Performed By: #### C MP, LIPA #### [facility] [address] [place] [address] Dr. Toy Macario URINE MICROSCOPIC ONLYon BACTERIA MODERATE Abnormal NONE SEEN [facility] Comment on above: Performed By: #### C VDTBH #### [facility] [address] [place] [address] Dr. Toy Macario Bacteria identified Cx Nom (U) INDICATED Normal [facility] Comment on above: Performed By: #### C VDTBH #### [facility] [address] [place] [address] Dr. Toy Macario CAST NONE SEEN Normal NONE SEEN [facility] Comment on above: Performed By: #### C VDTBH #### [facility] [address] [place] [address] Dr. Toy Macario Crystals LM Nom (Urine sed) NONE SEEN Normal NONE SEEN [facility] Comment on above: Performed By: #### C VDTBH #### [facility] [address] [address] [address] Toy Macario Epithelial cells LM Ql (Urine sed) MODERATE Abnormal NONE SEEN /RARE [facility] Comment on above: Performed By: #### C VDTBH #### [facility] [address] [address] [address] Toy Macario MUCOUS MODERATE Abnormal NONE SEEN [facility] Comment on above: Performed By: #### C VDTBH #### [facility] [address] [address] [address] Toy Macario RBC 5-10 Abnormal 0-2 [facility] Comment on above: Performed By: #### C VDTBH #### [facility] [address] [address] [address] Toy Macario WBC 10-20 Abnormal NONE SEEN [facility] Comment on above: Performed By: #### C VDTBH #### [facility] [address] [address] [address] Toy Macario Coding Summaryon 09-18-2020 [facility] YrkrilyaMFr3xKg+PGhlYW Q+OV9YIPVvJ17jyICupW7R V0lTSC2PYWSQIOCNQI0CFI 4feBU8JGbpF3MsagOm YzetdNRqRF99JLr1IPT1oX xeYTsqjO5uwUAcT1r5GfTp GP83uW69UZrdZTIjBhQ7Al ZpbjsgbWFy Z8plJdFtfZXvMjt+PHRhYm xlIHdpZHRoPScxMDAlJyBz dJumVO8hBe6tNLHtOHXkmO xhcHNlOiBj u3gmZNWzQFumUM3myQbbL5 KewBV5KKNuw3l2Da01kHL+ QZHqKPJ6eCsuPKfmg956Ag Nox3isUZH6 wJUnONjkNAS5Q17bc9Y5HU HmSXKuOPK7pLY2sY8wzHqq mucgQ3HpcTClHjK0QSP3hV WfiN3gqPmp jwjmhS7hTuj+L68DSX4GKI XAYI7FJtx3A3SlNeujxEV+ HL56GZDaSB48rRIaiGAad4 ssbXc9KiXi FSCyXJS8oZkdFSxbh4YtHA LlN92hmTEcx5U2GWOhiYvy lHNpAiAgiCD2gR9qYUrjhw xzj0xfgkdd Ealyg1tjkn70nL22P24nVF bjRZVeXOY0CHYoKJAhcOcc py5jlK1cWg6+DUuem0pzh1 cmyBx6XePk QAEkuiEzoIgbMSE9o7SqGm 94O4AedVwcr2DpWdq1ag05 lHIgp3L6yBN7QAggVVCbyT 5kVNjoSqI7 TKWrMnFswB10lPJePVueQh 1esXmohZqaGB0rJIJudjkv YEHkzN1yATThoZSziLalUH 4wNTBpbjtm n530UdHcTOD2KHOovMPgO1 JqrU6yHnHsXVQkHLUrY0Bb cNWhMLroU110QHbhRgN4BI RoznNaR9Qw XVVezAcjNiR5v1Q8Th0Vi2 RwacvjEAM5POosNNZ9CwY6 CpGiAtX5N8UtZld8IEEqeM blWE1fS4Nn DKMwbexwsmbogEC9XUYiFH FzwH62cZBnERjaJv6dx4M9 s262OLViSPPxlW01Xw3jiL ogMTBwdCBU hC1smcbzo8hsqiimXuNpGZ MyQVz2URl8ZYOgeJxmZgPr SWJ6CzU3XZL9dCKynC9sbE hwhwjrwV4x Oyc+M56piS7lWTY1AEE1zr aoEBVxpxCeOZ02XU30J1Il PjwvdGFibGU+PGRpdiBzdH weAR7yFmHo u2wxj8KuQLxzT7HjEFDkUV opEpr9FASkPHO2oOS2fF8q RFZfBZuqx0N6zDE8Y1Fjoy Sxkk1et4hf TDItJPewI69owHBzc9Y1DH CpmPI2CVHzgMmqYwGqpA27 Oyc+CACxwThsf4MdDexah8 rkz3gobVh7 OnRdZXIikyZqkDlsRFH0x4 InIy25N64hPPtoWISxXZBe LLTvCKYwzGuqhb5xrF7sVm 8+PGNvbCB3 lLD4lY8fAXQrCsK4IIdyZ7 52GmUnqOEeNzopq0clx2zo wHi2FgHuZMPgjqNiwXaeFB G1w3VrCb22 F19mYZvxCIFeBGGvXEOhDZ FnzIaiww7njS0tFg0+PC9j l1uasf97lT95nJO+PHRkIH O5eQynELtd GDUsxW2rSXtcDtD0JCEaAt RssV60bEOjMCakGr0qzRjp fLevKP6kCEVkwreyc180Kr Jzi8agTVRh tGJgICemJMV2Z88do7F6NW JfIYMnIKS8pAL5fY0foAoh bjogbGVmdDsgdmVydGljYW wbOJkwT828 IHRvcDsnPlBhdGllbnQgTm KmKLm4R8GzWhp4HOOtzThr CS1rqOZpWPxeRd1rkLjtnB zcZV6jKMZw miogo457SqNfx8ssRRHuiF KlRYqnVCU9K48ib5G2GIDo NTKoXSZ6fYU1wI8moBbtzw ogbGVmdDsg tqZgcBoyHQakOXymC292LA RvcDsnPkJpcnRoIERhdGU6 NN69FS58cUKhw5N8oDE9N4 BhZGRpbmct wtbczOY4CMUjIRQhaI66Mx 7umXxrYc0tDOZcZSO0XYCq zPTgD2ChqF5vCrPbFISdGY KcO4PrlXIc MUotW236DNreYsF7OIFjfb LwA1DdBPYqyIzaZmX7h6V3 Gn7JW5O7SC03UE95dRTuv3 X4hHR9Z8Cb WDBrqptyvfoqmBB6EWHgYH ApiF36Nh0caIqsYr2jQZOo EMA6MMUfzVQvB0ZekY7iHz AjMDAwMDAw M5SknZNcGMdwQ383NUyeKg V8FHZjfbFsT0WgQNBajXuq SmL1k7Y0Ee3AHSq2IG59WO 58tMKmz6N1 qTY2O1BaSQBbriliqnvipL Q5JPTeMYGsqG75Vf9csFbs Xw9qOPCbXXW1CERxqVIdS8 CmkC0tSnEq MZOkZZLjJ9ImrMYmVZaeC0 21DEndOnE6VKWmqyHmU0Iu NEAkvJuuPzV9z2N4Eg0DFW FjGP10GOI9 xKD2QJ59JZ06D0FlNqwufC FibGU+PHRhYmxlIHdpZHRo NLpfFXYsHsSiiYzmPT6hQe 9yZGVyLWNv lSxmnXSsXlByx3goZIFqQH bpPH6jnImdU1BbyHJ5CUXk b9l5Lb51R42mN2AjfKQ+PG GsoDC9jAV6 pY6eDhUhSdW4FGqqN880Ac JfkPOhSkfqo5eem7fcqQj3 KxF3DDVdhhXxgRdxZPV2m4 YhZz91F87x IHdpZHRoPSIxNSUiIHZhbG hboh9gaZ0wAs3+PGNvbCB3 vIK4zY2dMrIrFxZ0PZblP5 49InRvcCIv Uvbbj1kft7qwuMl3TrNfGH LfjnDxoPyyZLJ2e6WwTl25 S5EivGksl8LqRvi7wa22gV Mbx6W6yCB8 X4CqCNThvlefnRIexPaeZD 8sFRHfcghoOLPhxG9sHAPq E0f4UyXzJzH7BVrkE8Gosb Q2KSWjzZDx KCteYWR7K93ig3E4BESkCL JlXLW7wIX6fU1ioJaxcccw bGVmdDsgdmVydGljYWwtYW fcH105EBFj uXhvPQQrkJ2bDVVyvYTuhN jhEY1oPXEzpzmiXjuGUa9S N5AAWBQQSQDSTDC4B4CbLa x1SURujRyi CF9szSJeNCyxCe2rxGolaM eeLC8vRAZewtzyBSHllX8q BXRtiLDfaZjuLU0tQPQgej bse292KgQq MBJ9TEApsCToB9BxvR4uNu InQWSrMSRyS1JgmPEwRQwf G538JDevSrI3TAGtfiLyV0 FsLWFsaWdu OdH2a2R0Gs8fBZ9zHA0eGO h0YI58MV72wIXso4S5wGW7 M3GkRPJdtionmerixAB6BX FgUYWbpF81 bISuNGznBo8kp4Y0l469WH KtTSPvoH14Yv3kxVwvJDVd mNUIxH6qdgpst3ocsslcIp AwMDAwMDt0 XEy4PICanZvgYpXsATW2Zi H4QPL1wEMvhO6lsYvuygmc rW1sBvz+QAZwXHXmmcU4J0 FgKds4ERUx gOdhZG8vnQKcQFzkXp5rpE elkSqkJR8pEJNgvaohWYAr cI0aNBHxnNPkfXfvQW5iOL Xkossja715 PhRkFLB1HGWmnUScP8UgbZ 3hLkGoSWMaIEVrD8LpaGDd QEfbK589LFaiPxK9KLRqgg LjA7TzAPSd cZcsLdC0w4J8Xu7KUP9LCC I5R3AnPlc0LQFpcTctHG6b jQGeHGjuVt0wcXjcwDtyNZ 4wNTBpbjtw LIJuxU3kQDDrwYAacSajQJ 7iZDXboluwt541BnAsQBU6 NIXwpCRsT4ZtpQ6fFeNlUN RkKYOoJ9Eh cSFrDGxmE774SGgkYyF4FQ CmplEkG0NfKRZnrYenPhB7 q3Z7Nc2FnBRkWXZxFX14PH luIGEgQmVk WC81PZ82A5TlJqwbfMJsaZ U+PHRhYmxlIHdpZHRoPScx CWMnIoIuvSygVT4uYf5tOZ VyLWNvbGxh pVJbVlSgj2sbUMRwUYqbBW 0pdSijO3BybFC4WVZxj3m0 Ig77B94rY8YzePX+PGNvbC V7nTN1yH1f YoDhHhU9FYvbE014GeEeiF ZmRqemn0vvw6xynSm0KyZc ZAYfzlWgaMynXLK3w3EtCr 85J83yVDze ZHRoPSIyMCUiIHZhbGlnbj 1tjL3aSs3+NJZawQI7cEN5 zG0mFlGbPwH1BJkuB563Wp RvcCIvPjwv N21wA6NfaCW+QIKbBpi0WB KsgKsdOB3mvXOfCZidMr0p KXD6FtElMaDyUAsyE5FhMQ Rpbmctcmln lLU4ZINxYPQrvH00Tx8cfX iuFj6wDKObKTK4FRBgoHSg F7ZqxZ0uClIdTBVjTVDdW7 RleHQtYWxp J193FTdsRlV0MURmfnQvO6 OoKVStnOnpYwA4i2M2Cn1G vVegtGIyHC8yCkHbGGk2F9 YwNfd6COJi aPweUD8qcNNtHFseDr2fzA mozMshAF8cJROaatpvq988 CnUpf8wuRHQhjHZeFLvrQZ B1B35om1W5 QBTsQAKfANG6sJC2zX6tmQ lnbjogbGVmdDsgdmVydGlj IHbjISlsN400FXJjdNrjBm QJFxn0P9Op Bgm5CFEdfJlrCL3psSAvFF gmAf8urBrvcXngMG1hIZUz knofk915QgHob4wrSVWljX QgVGltZXM7 N38yp1S9NPZuNWRhSIA7yQ T9rP2cpUmaaakawMJteHzd buOjbIilGStwEBimG912PE BxcHjcDz3G Utu5C6JnCei1TONysGlhAJ 2xhVYxLQzwEg9vaCsgoGgx ZI8hVLFvnlpdi716MtZzh7 xkIDEwcHQg ITiyDTV9C69ha2Q4TKOwED RhLXM9aBY7lO1vdSsltaso bGVmdDsgdmVydGljYWwtYW kvL434OGPl cDsnPlBheWVyOjwvdGQ+PC 59uu46P3ZmTgayKoi7HTQw KAA6cDS6mF4dYDBdEHlkf3 R8eDV0C7Ck cmR (more content not included)... [facility] Consultation/Specialist Note on 09-16-2020 Consultation/Specialist Note HOME SLEEP STUDY DATE OF STUDY: 09/10/2020 INDICATION FOR STUDY: Sleep apnea. Home sleep testing was performed without sleep staging but with continuous measurement of body position, oxygen saturations, heart rate, snore volumes, thoracic, abdominal movement and nasal flow. As sleep is not measured for qvr-ab-jaxxxi home testing index time consists of time [...] is advised. Uriel Stone M.D. JOB #: [id number] CC: Tamara Calero DO [Electronically Signed on: 09/16/2020 13:28 EDT] Uriel Stone MD [Verified on: 09/16/2020 13:28 EDT] Uriel Stone MD [Transcribed on: 09/16/2020 11:10 EDT] [facility] Sleep Studyon 09-16-2020 Sleep Study [id number]#1.0 [facility]-2020 Provider Orders [id number]#1.[address] [place] [address] Provider [place] 08-28-2020 Provider Orders [id number]#1.[address] [place] [address] Provider [place] 08-27-2020 Provider Orders [id number]#1.[address] [place] [address] Flu A/B Ag Detectionon 03-11 Flu A/B Ag Detection Specimen Descriptio n .NASOPHARYNGEAL SWABSpecial Requests NOT REPORTEDDirect Exam PRESUMPTIVE NEGATIVE for Influenza A + B antigens. PCR testing to confirm this result is available upon request. Specimen will be saved in the laboratory for 7 days. Please call [phone] if PCR testing is indicated. Report Status FINAL 03/11/2018 [facility] Comment on above: Performed By: #### F LUAD ####[facility] [place] [address] Vital Signs Date Time Vital Sign Value Performing Clinician Facility 07-06-2024 00:25-0400 Body height 167.64 cm Josette OSEI Work Phone: [facility] 07-06-2024 00:25-0400 Body temperature 97.7 [degF] Josette OSEI Work Phone: [facility] 07-06-2024 00:25-0400 Body weight 109.1 kg Josette Tequila [employer] Work Phone: [facility] 07-06-2024 00:25-0400 Diastolic blood pressure 55 mm[Hg] Josette Tequila [employer] Work Phone: [facility] 07-06-2024 00:25-0400 Heart rate 72 /min Jsoette Tequila [employer] Work Phone: [facility] 07-06-2024 00:25-0400 Respiratory rate 18 /min Josette Tequila [employer] Work Phone: [facility] 07-06-2024 00:25-0400 SaO2% (BldA) [Mass fraction] 98 % Josette Tequila [employer] Work Phone: [facility] 07-06-2024 00:25-0400 Systolic blood pressure 99 mm[Hg] Josette Tequila [employer] Work Phone: [facility] 06-25-2024 15:06-0400 Body height 167.64 cm Josette Tequila [employer] Work Phone: [facility] 06-25-2024 15:06-0400 Body mass index (BMI) [Ratio] 38.1 kg/m2 Josette Tequila [employer] Work Phone: [facility] 06-25-2024 15:06-0400 Body temperature 97.5 [degF] Josettecherri Talaveramer [employer] Work Phone: [facility] 06-25-2024 15:06-0400 Body weight 107.27 kg Josette Tequila [employer] Work Phone: [facility] 06-25-2024 15:06-0400 Diastolic blood pressure 47 mm[Hg] Josette Tequila [employer] Work Phone: [facility] 06-25-2024 15:06-0400 Heart rate 84 /min Josettecherri Talaveramer [employer] Work Phone: [facility] 06-25-2024 15:06-0400 Respiratory rate 20 /min Josette Tequila [employer] Work Phone: [facility] 06-25-2024 15:06-0400 SaO2% (BldA) [Mass fraction] 96 % Josette Mandel [employer] Work Phone: [facility] 06-25-2024 15:06-0400 Systolic blood pressure 85 mm[Hg] Josette Mandel [employer] Work Phone: [facility] 06-14-2024 07:30-0400 Body temperature 97.5 [degF] Tamara Whitei DO Work Phone: [facility] 06-14-2024 07:30-0400 Diastolic blood pressure 70 mm[Hg] Tamara Whitei DO Work Phone: [facility] 06-14-2024 07:30-0400 Heart rate 79 /min Tamara Whitei DO Work Phone: [facility] 06-14-2024 07:30-0400 Respiratory rate 16 /min Tamara Whitei DO Work Phone: [facility] 06-14-2024 07:30-0400 SaO2% (BldA) [Mass fraction] 97 % Tamara Whitei DO Work Phone: [facility] 06-14-2024 07:30-0400 Systolic blood pressure 117 mm[Hg] Tamara Whitei DO Work Phone: [facility] 06-12-2024 12:34-0400 Body height 167.64 cm Tamara Whitei DO Work Phone: [facility] 06-11-2024 22:45-0400 Body weight 107 kg Tamara Whitei DO Work Phone: [facility] 06-11-2024 16:48-0400 Body height 167.64 cm Tamara Whitei DO Work Phone: [facility] 06-11-2024 16:48-0400 Body temperature 97.9 [degF] Tamara Calero DO Work Phone: [facility] 06-11-2024 16:48-0400 Body weight 107 kg Tamara Calero DO Work Phone: [facility] 06-11-2024 16:48-0400 Diastolic blood pressure 72 mm[Hg] Tamara Calero DO Work Phone: [facility] 06-11-2024 16:48-0400 Heart rate 106 /min Tamara Calero DO Work Phone: [facility] 06-11-2024 16:48-0400 Respiratory rate 18 /min Tamara Calero DO Work Phone: [facility] 06-11-2024 16:48-0400 SaO2% (BldA) [Mass fraction] 96 % Tamara Calero DO Work Phone: [facility] 06-11-2024 16:48-0400 Systolic blood pressure 131 mm[Hg] Tamara Calero DO Work Phone: [facility] 03-31-2024 12:25-0500 Body height 167.64 cm Tamara Calero DO Work Phone: [facility] 03-31-2024 12:25-0500 Body mass index (BMI) [Ratio] 39.7 kg/m2 Tamara Calero DO Work Phone: [facility] 03-31-2024 12:25-0500 Body temperature 98.6 [degF] Tamara Calero DO Work Phone: [facility] 03-31-2024 12:25-0500 Body weight 111.78 kg Tamara Calero DO Work Phone: [facility] 03-31-2024 12:25-0500 Diastolic blood pressure 69 mm[Hg] Tamara Calero DO Work Phone: [facility] 03-31-2024 12:25-0500 Heart rate 90 /min Tamara Calero DO Work Phone: [facility] 03-31-2024 12:25-0500 Respiratory rate 18 /min Tamara Calero DO Work Phone: [facility] 03-31-2024 12:25-0500 SaO2% (BldA) [Mass fraction] 93 % Tamara Calero DO Work Phone: [facility] 03-31-2024 12:25-0500 Systolic blood pressure 113 mm[Hg] Tamara Calero DO Work Phone: [facility] 03-07-2024 10:01-0500 Body height 167 cm Stephanie Webster MD Work Phone: [facility] 03-07-2024 10:01-0500 Body mass index (BMI) [Ratio] 39.85 kg/m2 Stephanie Webster MD Work Phone: [facility] 03-07-2024 10:01-0500 Body temperature 97 [degF] Stephanie Webster MD Work Phone: [facility] 03-07-2024 10:01-0500 Body weight 111.13 kg Stephanie Webster MD Work Phone: [facility] 03-07-2024 10:01-0500 Diastolic blood pressure 88 mm[Hg] Stephanie Webster MD Work Phone: [facility] 03-07-2024 10:01-0500 Heart rate 61 /min Stephanie Webster MD Work Phone: [facility] 03-07-2024 10:01-0500 Respiratory rate 20 /min Stephanie Webster MD Work Phone: [facility] 03-07-2024 10:01-0500 SaO2% (BldA) [Mass fraction] 92 % Stephanie Webster MD Work Phone: [facility] 03-07-2024 10:01-0500 Systolic blood pressure 156 mm[Hg] Stephanie Webster MD Work Phone: [facility] 02-12-2024 15:53-0500 Diastolic blood pressure 52 mm[Hg] Tamara Calero DO Work Phone: [facility] 02-12-2024 15:53-0500 Systolic blood pressure 83 mm[Hg] Tamara Calero DO Work Phone: [facility] 02-12-2024 15:53-0500 Body height 167.64 cm Tamara Calero DO Work Phone: [facility] 02-12-2024 15:53-0500 Body mass index (BMI) [Ratio] 39 kg/m2 Tamara Calero DO Work Phone: [facility] 02-12-2024 15:53-0500 Body temperature 97.3 [degF] Tamara Calero DO Work Phone: [facility] 02-12-2024 15:53-0500 Body weight 109.76 kg Tamara Calero DO Work Phone: [facility] 02-12-2024 15:53-0500 Heart rate 85 /min Tamara Calero DO Work Phone: [facility] 02-12-2024 15:53-0500 Respiratory rate 18 /min Tamara Calero DO Work Phone: [facility] 02-12-2024 15:53-0500 SaO2% (BldA) [Mass fraction] 96 % Tamara Calero DO Work Phone: [facility] 11-30-2023 08:27-0400 Body height 167.6 cm Stephanie Webster MD Work Phone: [facility] 11-30-2023 08:27-0400 Body mass index (BMI) [Ratio] 39.54 kg/m2 Stephanie Webster MD Work Phone: [facility] [employer] [facility] 11-30-2023 08:27-0400 Body temperature 97.5 [degF] Stephanie Webster MD Work Phone: [facility] [employer] [facility] 11-30-2023 08:27-0400 Body weight 111.13 kg Stephanie Webster MD Work Phone: [facility] 11-30-2023 08:27-0400 Diastolic blood pressure 78 mm[Hg] Stephanie Webster MD Work Phone: [facility] 11-30-2023 08:27-0400 Heart rate 92 /min Stephanie Webster MD Work Phone: [facility] 11-30-2023 08:27-0400 Respiratory rate 18 /min Stephanie Webster MD Work Phone: [facility] 11-30-2023 08:27-0400 SaO2% (BldA) [Mass fraction] 97 % Stephanie Webster MD Work Phone: [facility] 11-30-2023 08:27-0400 Systolic blood pressure 130 mm[Hg] Stephanie Webster MD Work Phone: [facility] 11-14-2023 07:30-0400 Body temperature 97.7 [degF] [employer] Josette Tequila Work Phone: [facility] 11-14-2023 07:30-0400 Diastolic blood pressure 85 mm[Hg] [employer] Josette Tequila Work Phone: [facility] 11-14-2023 07:30-0400 Heart rate 85 /min [employer] Josette Tequila Work Phone: [facility] 11-14-2023 07:30-0400 Respiratory rate 18 /min [employer] Josette Tequila Work Phone: [facility] 11-14-2023 07:30-0400 SaO2% (BldA) [Mass fraction] 95 % [employer] Josette Tequila Work Phone: [facility] 11-14-2023 07:30-0400 Systolic blood pressure 122 mm[Hg] [employer] Josette Tequila Work Phone: [facility] 11-13-2023 08:42-0400 Body weight 108.5 kg [employer] Josette Tequila Work Phone: [facility] 11-09-2023 13:07-0400 Body height 167.64 cm [employer] Josette Tequila Work Phone: [facility] 11-08-2023 23:36-0400 Body temperature 98.1 [degF] [employer] Josette Tequila Work Phone: [facility] 11-08-2023 23:36-0400 Diastolic blood pressure 78 mm[Hg] [employer] Josette Tequila Work Phone: [facility] 11-08-2023 23:36-0400 Heart rate 75 /min [employer] Josette Tequila Work Phone: [facility] 11-08-2023 23:36-0400 Respiratory rate 20 /min [employer] Josette Tequila Work Phone: [facility] 11-08-2023 23:36-0400 SaO2% (BldA) [Mass fraction] 98 % [employer] Josette Tequila Work Phone: [facility] 11-08-2023 23:36-0400 Systolic blood pressure 148 mm[Hg] [employer] Josette Tequila Work Phone: [facility] 11-08-2023 19:54-0400 Body height 167.64 cm [employer] Josette Tequila Work Phone: [facility] 11-08-2023 19:54-0400 Body weight 108.5 kg [employer] Josette Tequila Work Phone: [facility] 09-28-2023 13:36-0400 Body height 167.64 cm [employer] Josette Mandel Work Phone: [facility] 09-28-2023 13:36-0400 Body mass index (BMI) [Ratio] 36.8 kg/m2 [employer] Josette Mandel Work Phone: [facility] 09-28-2023 13:36-0400 Body temperature 98 [degF] [employer] Josette Mandel Work Phone: [facility] 09-28-2023 13:36-0400 Body weight 103.41 kg [employer] Josette Mandel Work Phone: [facility] 09-28-2023 13:36-0400 Diastolic blood pressure 67 mm[Hg] [employer] Josette Mandel Work Phone: [facility] 09-28-2023 13:36-0400 Heart rate 104 /min [employer] Josette Mandel Work Phone: [facility] 09-28-2023 13:36-0400 Respiratory rate 18 /min [employer] Josette Mandel Work Phone: [facility] 09-28-2023 13:36-0400 SaO2% (BldA) [Mass fraction] 95 % [employer] Josette Mandel Work Phone: [facility] 09-28-2023 13:36-0400 Systolic blood pressure 107 mm[Hg] [employer] Josette Mandel Work Phone: [facility] 08-31-2023 14:36-0400 Body height 167.64 cm [employer] Josette Mandel Work Phone: [facility] 08-31-2023 14:36-0400 Body mass index (BMI) [Ratio] 37.4 kg/m2 [employer] Josette Mandel Work Phone: [facility] 08-31-2023 14:36-0400 Body temperature 97.8 [degF] [employer] Josette Mandel Work Phone: [facility] 08-31-2023 14:36-0400 Body weight 105.23 kg [employer] Josette Mandel Work Phone: [facility] 08-31-2023 14:36-0400 Diastolic blood pressure 62 mm[Hg] [employer] Josette Mandel Work Phone: [facility] 08-31-2023 14:36-0400 Heart rate 105 /min [employer] Josette Mandel Work Phone: [facility] 08-31-2023 14:36-0400 Respiratory rate 18 /min BENCH MOLDER-C Josette Mandel Work Phone: [facility] 08-31-2023 14:36-0400 SaO2% (BldA) [Mass fraction] 95 % BENCH MOLDER-C Josette Mandel Work Phone: [facility] 08-31-2023 14:36-0400 Systolic blood pressure 111 mm[Hg] BENCH MOLDER-C Josette Mandel Work Phone: [facility] 08-31-2023 08:43-0400 Diastolic blood pressure 66 mm[Hg] Stephanie Webster MD Work Phone: [facility] 08-31-2023 08:43-0400 Systolic blood pressure 106 mm[Hg] Stephanie Webster MD Work Phone: [facility] 08-31-2023 08:35-0400 Body height 167.6 cm Stephanie Webster MD Work Phone: [facility] 08-31-2023 08:35-0400 Body mass index (BMI) [Ratio] 36.96 kg/m2 Stephanie Webster MD Work Phone: [facility] 08-31-2023 08:35-0400 Body weight 103.87 kg Stephanie Webster MD Work Phone: [facility] 08-31-2023 08:35-0400 Heart rate 111 /min Stephanie Webster MD Work Phone: [facility] 08-28-2023 12:39-0400 Body height 167.64 cm DO Posada Brananthonycki Work Phone: [facility] 08-28-2023 12:39-0400 Body temperature 98.2 [degF] DO Tamara Brananthonycki Work Phone: [facility] 08-28-2023 12:39-0400 Body weight 103.3 kg DO Tamara Brananthonycki Work Phone: [facility] 08-28-2023 12:39-0400 Diastolic blood pressure 83 mm[Hg] DO Tamara Brananthonycki Work Phone: [facility] 08-28-2023 12:39-0400 Heart rate 99 /min DO Tamara Kelleycki Work Phone: [facility] 08-28-2023 12:39-0400 Respiratory rate 20 /min DO Tamara Kelleycki Work Phone: [facility] 08-28-2023 12:39-0400 SaO2% (BldA) [Mass fraction] 97 % DO Tamara Kelleycki Work Phone: [facility] 08-28-2023 12:39-0400 Systolic blood pressure 126 mm[Hg] DO Tamara Kelleycki Work Phone: [facility] 08-21-2023 17:24-0400 Body height 170.18 cm DO Tamaraar Kelleycki Work Phone: [facility] 08-21-2023 17:24-0400 Body mass index (BMI) [Ratio] 36.1 kg/m2 DO Tamara Brananthonycki Work Phone: [facility] 08-21-2023 17:24-0400 Body temperature 97.8 [degF] DO Tamara Braniecki Work Phone: [facility] 08-21-2023 17:24-0400 Body weight 104.49 kg DO Tamara Brananthonycki Work Phone: [facility] 08-21-2023 17:24-0400 Diastolic blood pressure 67 mm[Hg] DO Tamara Calero Work Phone: [facility] 08-21-2023 17:24-0400 Heart rate 80 /min DO Tamara Calero Work Phone: [facility] 08-21-2023 17:24-0400 Respiratory rate 18 /min DO Tamara Calero Work Phone: [facility] 08-21-2023 17:24-0400 SaO2% (BldA) [Mass fraction] 94 % DO Tamara Calero Work Phone: [facility] 08-21-2023 17:24-0400 Systolic blood pressure 101 mm[Hg] DO Tamara Calero Work Phone: [facility] 07-03-2023 10:45-0400 Body mass index (BMI) [Ratio] 37.22 kg/m2 Halina Leighley [employer] Work Phone: [facility] 07-03-2023 10:45-0400 Body weight 104.6 kg Halina Sholey [employer] Work Phone: [facility] 07-03-2023 10:45-0400 Diastolic blood pressure 78 mm[Hg] Halina Leighley [employer] Work Phone: [facility] 07-03-2023 10:45-0400 Systolic blood pressure 124 mm[Hg] Halina Sholey [employer] Work Phone: [email or web address] [facility] 05-18-2023 17:14-0400 Body height 167.6 cm Stephanie Webster MD Work Phone: [facility] 05-18-2023 17:14-0400 Body mass index (BMI) [Ratio] 35.67 kg/m2 Stephanie Webster MD Work Phone: [facility] 05-18-2023 17:14-0400 Body weight 100.25 kg Stephanie Webster MD Work Phone: [facility] 05-18-2023 17:14-0400 Diastolic blood pressure 70 mm[Hg] Stephanie Webster MD Work Phone: [facility] 05-18-2023 17:14-0400 Systolic blood pressure 130 mm[Hg] Stephanie Webster MD Work Phone: [facility] 04-24-2023 15:29-0500 Body height 170.18 cm DO Tamara Kelleycki Work Phone: [facility] 04-24-2023 15:29-0500 Body mass index (BMI) [Ratio] 36.1 kg/m2 DO Tamara Kelleycki Work Phone: [facility] 04-24-2023 15:29-0500 Body weight 104.77 kg DO Tamara Kelleycki Work Phone: [facility] 04-24-2023 15:29-0500 Diastolic blood pressure 80 mm[Hg] DO Tamara Warrencki Work Phone: [facility] 04-24-2023 15:29-0500 Heart rate 84 /min DO Tamara Kelleycki Work Phone: [facility] 04-24-2023 15:29-0500 Respiratory rate 14 /min DO Tamara Warrencki Work Phone: [facility] 04-24-2023 15:29-0500 SaO2% (BldA) [Mass fraction] 96 % DO Tamara Brananthonycki Work Phone: [facility] 04-24-2023 15:29-0500 Systolic blood pressure 123 mm[Hg] DO Tamara Brananthonycki Work Phone: [facility] 04-15-2023 10:20-0500 Body height 170.18 cm Priyanka Lemon Other [employer] Other 04-15-2023 10:20-0500 Body mass index (BMI) [Ratio] 36.33 kg/m2 Priyanka Lemon Other [employer] Other 04-15-2023 10:20-0500 Body temperature 98.5 [degF] Priyanka Lemon Other [employer] Other 04-15-2023 10:20-0500 Body weight 105.24 kg Priyanka Lemon Other [employer] Other 04-15-2023 10:20-0500 Diastolic blood pressure 102 mm[Hg] Priyanka Lemon Other [employer] Other 04-15-2023 10:20-0500 Respiratory rate 20 /min Priyanka Lemon Other [employer] Other 04-15-2023 10:20-0500 Systolic blood pressure 125 mm[Hg] Priyanka Lemon Other [employer] Other 02-24-2023 10:00-0500 Body height 170.18 cm Tamara Calero Other [facility] 02-24-2023 10:00-0500 Body mass index (BMI) [Ratio] 35.86 kg/m2 Tamara Calero Other [employer] Other 02-24-2023 10:00-0500 Body weight 103.87 kg Tamara Calero Other [facility] 02-24-2023 10:00-0500 Diastolic blood pressure 77 mm[Hg] Tamara Calero Other [facility] 02-24-2023 10:00-0500 Respiratory rate 20 /min Tamara Calero Other [employer] Other 02-24-2023 10:00-0500 Systolic blood pressure 113 mm[Hg] Tamara Calero Other [facility] 12-20-2022 12:15-0400 Body height 170.18 cm Priyanka Lemon Other [employer] Other 12-20-2022 12:15-0400 Body mass index (BMI) [Ratio] 35.36 kg/m2 Priyanka Lemon Other [employer] Other 12-20-2022 12:15-0400 Body temperature 99.1 [degF] Priyanka Elmon Other [employer] Other 12-20-2022 12:15-0400 Body weight 102.42 kg Priyanka Lemon Other [employer] Other 12-20-2022 12:15-0400 Diastolic blood pressure 88 mm[Hg] Priyanka Lemon Other [employer] Other 12-20-2022 12:15-0400 Respiratory rate 18 /min Priyanka Lemon Other [employer] Other 12-20-2022 12:15-0400 SaO2% (BldA) [Mass fraction] 96 % Priyanka Lemon Other [employer] Other 12-20-2022 12:15-0400 Systolic blood pressure 133 mm[Hg] Priyanka Lemon Other [employer] Other 11-22-2022 14:30-0400 Body height 170.18 cm Tamara Calero Other [employer] Other 11-22-2022 14:30-0400 Body mass index (BMI) [Ratio] 35.86 kg/m2 Tamara Calero Other [employer] Other 11-22-2022 14:30-0400 Body weight 103.87 kg Tamara Calero Other [employer] Other 11-22-2022 14:30-0400 Diastolic blood pressure 74 mm[Hg] Tamara Calero Other [employer] Other 11-22-2022 14:30-0400 Respiratory rate 18 /min Tamara Calero Other [employer] Other 11-22-2022 14:30-0400 SaO2% (BldA) [Mass fraction] 95 % Tamara Calero Other [employer] Other 11-22-2022 14:30-0400 Systolic blood pressure 114 mm[Hg] Tamara Calero Other [employer] Other 08-24-2022 14:00-0400 Body height 170.18 cm Tamara Calero Other [employer] Other 08-24-2022 14:00-0400 Body mass index (BMI) [Ratio] 35.39 kg/m2 Tamara Calero Other [employer] Other 08-24-2022 14:00-0400 Body temperature 99.2 [degF] Tamara Calero Other [employer] Other 08-24-2022 14:00-0400 Body weight 102.51 kg Tamara Calero Other [employer] Other 08-24-2022 14:00-0400 Diastolic blood pressure 74 mm[Hg] Tamara Calero Other [employer] Other 08-24-2022 14:00-0400 Respiratory rate 20 /min Tamara Calero Other [employer] Other 08-24-2022 14:00-0400 SaO2% (BldA) [Mass fraction] 94 % Tamara Calero Other [employer] Other 08-24-2022 14:00-0400 Systolic blood pressure 114 mm[Hg] Tamara Calero Other [employer] Other 05-24-2022 23:57-0400 Diastolic blood pressure 62 mm[Hg] DO Tamara Whitei Work Phone: [facility] 05-24-2022 23:57-0400 Heart rate 94 /min DO Tamara Kelleycki Work Phone: [facility] 05-24-2022 23:57-0400 Respiratory rate 16 /min DO Tamara Kelleycki Work Phone: [facility] 05-24-2022 23:57-0400 SaO2% (BldA) [Mass fraction] 97 % DO Tamara Brananthonycki Work Phone: [facility] 05-24-2022 23:57-0400 Systolic blood pressure 122 mm[Hg] DO Tamara Brananthonycki Work Phone: [facility] 05-24-2022 20:49-0400 Body height 167.64 cm DO Tamara Calero Work Phone: [facility] 05-24-2022 20:49-0400 Body temperature 98.8 [degF] DO Tamara Calero Work Phone: [facility] 05-24-2022 20:49-0400 Body weight 98.2 kg DO Tamara Calero Work Phone: [facility] 05-18-2022 17:00-0400 Body height 170.18 cm Tamara Calero Other [employer] [facility] [employer] Other 05-18-2022 17:00-0400 Body mass index (BMI) [Ratio] 33.67 kg/m2 Tamara Calero Other [employer] Other 05-18-2022 17:00-0400 Body weight 97.52 kg Tamara Calero Other [employer] Other 05-18-2022 17:00-0400 Diastolic blood pressure 82 mm[Hg] Tamara Calero Other [employer] Other 05-18-2022 17:00-0400 Respiratory rate 20 /min Tamara Calero Other [employer] Other 05-18-2022 17:00-0400 SaO2% (BldA) [Mass fraction] 97 % Tamara Calero Other [employer] Other 05-18-2022 17:00-0400 Systolic blood pressure 136 mm[Hg] Tamara Kelleyvargas Other [employer] Other 05-15-2022 11:38-0400 Body temperature 97.6 [degF] DO Tamara Kelleycki Work Phone: [facility] 05-15-2022 11:38-0400 Diastolic blood pressure 88 mm[Hg] DO Tamara Kelleycki Work Phone: [facility] 05-15-2022 11:38-0400 Heart rate 73 /min DO Tamara Kelleycki Work Phone: [facility] 05-15-2022 11:38-0400 SaO2% (BldA) [Mass fraction] 96 % DO Tamara Kelleycki Work Phone: [facility] 05-15-2022 11:38-0400 Systolic blood pressure 133 mm[Hg] DO Tamara Kelleycki Work Phone: [facility] 05-15-2022 07:46-0400 Respiratory rate 16 /min DO Tamara Kelleycki Work Phone: [facility] 05-11-2022 14:05-0500 Body height 167.64 cm DO Tamara Whitei Work Phone: [facility] 05-11-2022 00:58-0500 Body weight 94.34 kg DO Tamara Kelleycki Work Phone: [facility] 05-11-2022 00:00-0500 Diastolic blood pressure 82 mm[Hg] DO Tamara Kelleycki Work Phone: [facility] 05-11-2022 00:00-0500 Heart rate 74 /min DO Tamara Kelleycki Work Phone: [facility] 05-11-2022 00:00-0500 Respiratory rate 18 /min DO Tamara Brananthonycki Work Phone: [facility] 05-11-2022 00:00-0500 SaO2% (BldA) [Mass fraction] 96 % DO Tamara Braniecki Work Phone: [facility] 05-11-2022 00:00-0500 Systolic blood pressure 170 mm[Hg] DO Tamara Calero Work Phone: [facility] 05-10-2022 21:11-0500 Body height 167.64 cm DO Tamara Calero Work Phone: [facility] 05-10-2022 21:11-0500 Body temperature 98.5 [degF] DO Tamara Calero Work Phone: [facility] 05-10-2022 21:11-0500 Body weight 94.4 kg DO Tamara Calero Work Phone: [facility] 08-20-2021 12:30-0400 Body height 170.18 cm Tamara Calero Other [facility] [employer] Other 08-20-2021 12:30-0400 Body mass index (BMI) [Ratio] 30.07 kg/m2 Tamara Calero Other [employer] Other 08-20-2021 12:30-0400 Body temperature 98.2 [degF] Tamara Calero Other [employer] Other 08-20-2021 12:30-0400 Body weight 87.09 kg Tamara Calero Other [employer] Other 08-20-2021 12:30-0400 Diastolic blood pressure 72 mm[Hg] Tamara Calero Other [employer] Other 08-20-2021 12:30-0400 Respiratory rate 18 /min Tamara Calero Other [employer] Other 08-20-2021 12:30-0400 SaO2% (BldA) [Mass fraction] 99 % Tamara Calero Other [employer] [facility] [employer] Other 08-20-2021 12:30-0400 Systolic blood pressure 118 mm[Hg] Tamara Calero Other [employer] Other 08-10-2021 14:48-0400 Body height 167.6 cm [facility] 08-10-2021 14:48-0400 Body mass index (BMI) [Ratio] 32.77 kg/m2 [facility] 08-10-2021 14:48-0400 Body temperature 97.7 [degF] [facility] 08-10-2021 14:48-0400 Body weight 92.08 kg [facility] 08-10-2021 14:48-0400 Diastolic blood pressure 62 mm[Hg] [facility] 08-10-2021 14:48-0400 Heart rate 81 /min [facility] 08-10-2021 14:48-0400 Respiratory rate 16 /min [facility] 08-10-2021 14:48-0400 SaO2% (BldA) [Mass fraction] 100 % [facility] 08-10-2021 14:48-0400 Systolic blood pressure 138 mm[Hg] [facility] 08-04-2021 05:03-0400 Body temperature 98.49 [degF] Dennis Sarmiento MD Work Phone: [facility] 08-04-2021 05:03-0400 Diastolic blood pressure 48 mm[Hg] Dennis Sarmiento MD Work Phone: [facility] 08-04-2021 05:03-0400 Heart rate 70 /min Dennis Sarmiento MD Work Phone: [facility] 08-04-2021 05:03-0400 Respiratory rate 16 /min Dennis Sarmiento MD Work Phone: [facility] 08-04-2021 05:03-0400 SaO2% (BldA) [Mass fraction] 97 % Dennis Sarmiento MD Work Phone: [facility] 08-04-2021 05:03-0400 Systolic blood pressure 110 mm[Hg] Dennis Sarmiento MD Work Phone: [facility] 07-31-2021 02:14-0400 Body height 177.8 cm [facility] 07-31-2021 02:14-0400 Body mass index (BMI) [Ratio] 30.42 kg/m2 Dennis Sarmiento MD [facility] 07-31-2021 02:14-0400 Body weight 96.16 kg Dennis Sarmiento MD Work Phone: [facility] 07-31-2021 01:15-0400 SaO2% (BldA) [Mass fraction] 97.8 % Dennis Sarmiento MD Work Phone[facility] 07-30-2021 20:20-0400 SaO2% (BldA) [Mass fraction] 98.6 % Dennis Sarmiento MD Work Phone: [facility] 07-30-2021 17:53-0400 SaO2% (BldA) [Mass fraction] 98.5 % Dennis Sarmiento MD Work Phone: [facility] 07-30-2021 17:00-0400 SaO2% (BldA) [Mass fraction] 98.1 % Dennis Sarmiento MD [facility] 07-15-2021 12:58-0400 Body height 179.1 cm [employer] Work Phone: [facility] 07-15-2021 12:58-0400 Body mass index (BMI) [Ratio] 29.99 kg/m2 [employer]ING [employer] PASTING SUPERVISORCollegePostings Work Phone: [employer] 07-15-2021 12:58-0400 Body temperature 97 [degF] Marcella HOGAN Work Phone: [email or web address] 07-15-2021 12:58-0400 Body weight 96.16 kg Marcella Luevano APRN-ENGINEER [employer] Work Phone: [email or web address] 07-15-2021 12:58-0400 Diastolic blood pressure 62 mm[Hg] Marcella Luevano APRN-ENG[employer]ER [employer] Work Phone: [email or web address] 07-15-2021 12:58-0400 Heart rate 75 /min Marcella Luevano APRN-OSCAR Work Phone: [employer] 07-15-2021 12:58-0400 Respiratory rate 16 /min Marcella Luevano APRN-ENGINEER [employer] Work Phone: [employer] 07-15-2021 12:58-0400 SaO2% (BldA) [Mass fraction] 96 % Marcella Luevano APRN-OSCAR Work Phone: [employer] 07-15-2021 12:58-0400 Systolic blood pressure 117 mm[Hg] Marcella Luevano APRN-[employer]ER [employer] Work Phone: [employer] 06-16-2021 11:35-0400 Diastolic blood pressure 77 mm[Hg] Leobardo Barry MD Work Phone: [email or web address] 06-16-2021 11:35-0400 Heart rate 73 /min Leobardo Barry MD Work Phone: [email or web address] 06-16-2021 11:35-0400 Respiratory rate 12 /min Leobardo Barry MD Work Phone: [employer] 06-16-2021 11:35-0400 SaO2% (BldA) [Mass fraction] 99 % Leobardo Barry MD Work Phone: [employer] 06-16-2021 11:35-0400 Systolic blood pressure 117 mm[Hg] Leobardo Barry MD Work Phone: [employer] 06-16-2021 11:05-0400 Body temperature 97.2 [degF] Leobardo Barry MD Work Phone: [employer] 06-11-2021 14:04-0400 Body height 168.9 cm Leigh Annxander Murphyes CASTING AND 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 Work Phone: [employer] 06-11-2021 14:04-0400 Body mass index (BMI) [Ratio] 33.39 kg/m2 Leigh Ann Teagan CASTING AND 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 Work Phone: [employer] 06-11-2021 14:04-0400 Body weight 95.25 kg Leigh Annxander Murphyes CASTING AND 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 Work Phone: [employer] 06-07-2021 11:45-0400 Body height 170.18 cm Tamara Calero Other [employer] Other 06-07-2021 11:45-0400 Body mass index (BMI) [Ratio] 32.57 kg/m2 Tamaraar Calero Other [employer] Other 06-07-2021 11:45-0400 Body weight 94.35 kg Tamara Calero Other [employer] Other 06-07-2021 11:45-0400 Diastolic blood pressure 69 mm[Hg] Tamara Calero Other [employer] Other 06-07-2021 11:45-0400 Respiratory rate 18 /min Tamara Calero Other [employer] Other 06-07-2021 11:45-0400 SaO2% (BldA) [Mass fraction] 98 % Tamara Calero Other [employer] Other 06-07-2021 11:45-0400 Systolic blood pressure 113 mm[Hg] Tamara Abdias Other [facility] [employer] Other Encounters Encounter Date Encounter Type Care Provider Facility Start: 09-04-2024 ambulatory Tamara Calero Facil ity:[facility] Start: 08-10-2024 End: 08-10-2024 Letter encounter [facility]iento MD [facility] Start: 08-06-2024 End: 08-06-2024 ambulatory [facility] Start: 07-06-2024 End: 07-06-2024 Emergency department patient visit Josette Mandel [facility]C [facility] Start: 06-26-2024 Registered Recurring Josette olmedo BENCH MOL[employer]-C Work Phone: [facility] Start: 06-25-2024 End: 06-25-2024 ambulatory Josette Mandel BENCH MOL[employer]-C Work Phone: [facility] Work Phone: Start: 06-25-2024 End: 06-25-2024 Patient encounter procedure Josette Mandel BENCH MOLDER-C Work Phone: [facility] Work Phone: Start: 06-19-2024 End: 06-19-2024 Refill Stephanie Webster MD Work Phone: [facility] Start: 06-19-2024 Registered Recurring Josette Alejandro amhay BENCH MOL[employer]-C Work Phone: [facility] Start: 06-12-2024 Non-patient / Non-visit Stanford Calero DO Work Phone: [facility] Work Phone: Start: 06-11-2024 End: 06-14-2024 Evaluation and management of inpatient Tamara Calero DO Work Phone: [facility] [place] [address] Work Phone: Start: 06-11-2024 End: 06-11-2024 ambulatory CORNELL RODRIGUEZ [facility] Start: 06-05-2024 Registered Recurring Tamara peoples DO Work Phone: [facility] Start: 05-25-2024 Evaluation and management of inpatient VIRA [facility] Start: 05-24-2024 Evaluation and management of inpatient VIRA [facility] Start: 05-24-2024 End: 05-25-2024 Evaluation and management of inpatient PAT CALLAHAN [facility] Start: 03-31-2024 End: 03-31-2024 ambulatory Tamara Calero DO Work Phone: [facility] Work Phone: Start: 03-31-2024 End: 03-31-2024 Patient encounter procedure Tamara Christopheryeseina DO Work Phone: [facility] Work Phone: Start: 03-15-2024 End: 03-15-2024 ambulatory BENITO PRADO [facility] Start: 03-14-2024 Registered Recurring Tamara Kyung richelle DO Work Phone: [facility] Start: 03-07-2024 End: 03-07-2024 Office outpatient visit 25 minutes Stephanie Webster MD Work Phone: [facility] Comment on above: Cigarette smoker mot ivated to quit (Primary Dx); Severe claudication (CMS-HCC); 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) Start: 02-12-2024 End: 02-12-2024 Patient encounter procedure Tamara Braniecki DO Work Phone: [facility] Work Phone: Start: 11-30-2023 End: 11-30-2023 Office outpatient visit 25 minutes Stephanie Webster MD Work Phone: [facility] Comment on above: Cigarette smoker mot ivated to quit (Primary Dx); Claudication (CMS-HCC) Start: 11-09-2023 Non-patient / Non-visit BENCH MOLDER-C P jeni Tequila Work Phone: [facility] Work Phone: Start: 11-08-2023 End: 11-14-2023 Evaluation and management of inpatient BENCH MOLDER-C Josette Tequila Work Phone: [address] Work Phone: Start: 11-08-2023 Registered Recurring BENCH MOLDER-C Anika la Tequila Work Phone: [facility] Start: 10-25-2023 Registered Recurring BENCH MOL[employer]-C Anika la Tequila Work Phone: [facility] Start: 09-28-2023 End: 09-28-2023 ambulatory BENCH MOL[employer]-C Josette Racheal Tequila Work Phone: [facility] Work Phone: Start: 09-28-2023 End: 09-28-2023 Patient encounter procedure BENCH MOLDER-C Josette Tequila Work Phone: [facility] Work Phone: Start: 09-27-2023 Registered Recurring BENCH MOL[employer]-C Anika la Tequila Work Phone: [facility] Start: 08-31-2023 End: 08-31-2023 ambulatory BENCH MOL[employer]-C Josette Racheal Tequila Work Phone: [facility] Work Phone: Start: 08-31-2023 End: 08-31-2023 Patient encounter procedure BENCH MOLDER-Tera Mandel Work Phone: [facility] Work Phone: Start: 08-31-2023 End: 08-31-2023 Office outpatient new 45 minutes Stephanie Webster MD Work Phone: [facility] Comment on above: Severe claudication (CMS-HCC) (Primary Dx); Cigarette smoker motivated to quit Start: 08-31-2023 End: 08-31-2023 ambulatory STEPHANIE WEBSTER [facility] Start: 08-30-2023 Registered Recurring HANK-Tera [place] Work Phone: [facility] Start: 08-28-2023 End: 08-28-2023 Emergency department patient visit DO Tamara Pearsonarielleyesenia Work Phone: [facility] Work Phone: Start: 08-21-2023 End: 08-21-2023 ambulatory DO Tamara Calero Work Phone: [facility] Work Phone: Start: 08-21-2023 End: 08-21-2023 Patient encounter procedure DO Tamara Calero Work Phone: [facility] Work Phone: Start: 08-03-2023 Registered Recurring DO Stanford rai Micheldalton Work Phone: [facility] Start: 07-03-2023 End: 07-03-2023 Patient encounter procedure Halina Lizarraga APRN-CNLola Work Phone: [facility] Start: 07-03-2023 End: 07-03-2023 Periodic preventive med est patient 40-64yrs Halina Lizarraga APRN-CNM Work Phone: [facility] Comment on above: Well woman exam with routine gynecological exam (Primary Dx); Encounter for screening mammogram for malignant neoplasm of breast Start: 07-03-2023 End: 07-03-2023 ambulatory TAMARA CALERO [facility] Start: 07-03-2023 Encounter for gynecological examination (general) (routine) without abnormal findings [facility] Start: 05-18-2023 End: 05-18-2023 ambulatory [facility] Araceli [facility] Start: 05-18-2023 End: 05-18-2023 Office outpatient new 60 minutes Stephanie Webster MD Work Phone: [facility] Comment on above: Abnormal CT scan (Pr imary Dx); Cigarette smoker motivated to quit; Claudication ([facility]-HCC); Blue toe syndrome of left lower extremity ([facility]-HCC) Start: 04-24-2023 End: 04-24-2023 ambulatory DO Tamara Calero Work Phone: [facility] Work Phone: Start: 04-24-2023 End: 04-24-2023 Patient encounter procedure DO Tamara Calero Work Phone: [facility] Work Phone: Start: 04-15-2023 End: 04-15-2023 ambulatory Priyanka Lemon Other [employer] Other Start: 04-15-2023 Office outpatient vi sit 15 minutes Priyanka Lemon [facility] Start: 02-24-2023 End: 02-24-2023 ambulatory Tamara Calero Other [employer] Other Start: 02-24-2023 Office outpatient vi sit 25 minutes Tamara Calero [facility] [place] Start: 02-24-2023 End: 02-24-2023 Patient encounter procedure DO Tamara Calero Work Phone: [facility] Work Phone: Start: 02-01-2023 Registered Recurring DO Stanford Calero Work Phone: [facility] Start: 12-20-2022 End: 12-20-2022 ambulatory Priyanka Lemon Other [employer] Other Start: 12-20-2022 Office outpatient vi sit 25 minutes Priyanka Lemon [facility] [place] Start: 12-05-2022 End: 12-05-2022 ambulatory Tamara Calero Other [employer] Other Start: 12-05-2022 Telephone encounter Tamara White i [employer] Start: 11-22-2022 End: 11-22-2022 ambulatory Tamara Kelleyjeannayesenia Other [employer] Other Start: 11-22-2022 Office outpatient vi sit 25 minutes Tamara Pearsondalton [facility] Start: 11-14-2022 End: 11-14-2022 ambulatory Tamara Calero Other [employer] Other Start: 11-14-2022 Telephone encounter Tamara White i [facility] Start: 11-02-2022 End: 11-02-2022 ambulatory Tamara Calero Other [employer] Other Start: 11-02-2022 Telephone encounter Tamara White i [facility] Start: 08-24-2022 End: 08-24-2022 ambulatory Tamara Calero Other [employer] Other Start: 08-24-2022 Encounter for other specified special examinations Tamara Abdias [facility] Start: 08-24-2022 Periodic preventive med est patient 40-64yrs Tamaraar Calero [facility] Start: 08-02-2022 Letter encounter Dennis godoy MD [facility] Start: 05-30-2022 End: 05-30-2022 ambulatory Tamara Calero Other [employer] Other Start: 05-30-2022 Telephone encounter Tamara White i [facility] Start: 05-24-2022 Evaluation and management of inpatient DO Tamara Calero Work Phone: [facility] [place] [address] Work Phone: Start: 05-24-2022 End: 05-24-2022 ambulatory Tamara Calero Other [employer] Other Start: 05-24-2022 Telephone encounter Tamara White i [facility] Start: 05-18-2022 End: 05-18-2022 ambulatory Tamara Calero Other [facility] [employer] Other Start: 05-18-2022 Office outpatient vi sit 25 minutes Tamara Calero [facility] Start: 05-11-2022 End: 05-11-2022 ambulatory Tamara Calero Other [email or web address] Other Start: 05-11-2022 Telephone encounter Tamara White i [facility] Start: 05-10-2022 End: 05-15-2022 Evaluation and management of inpatient DO Tamara Calero Work Phone: [address] Work Phone: Start: 05-05-2022 Letter encounter Dennis godoy MD Work [facility]: [facility] Start: 03-15-2022 End: 03-15-2022 ambulatory Tamara Calero Other [employer] Other Start: 03-15-2022 Office outpatient vi sit 15 minutes Tamara Calero [facility] Start: 03-13-2022 End: 03-13-[address] DOCTOR ELKINS Facility: Start: 02-14-2022 End: 02-14-2022 Telemedicine consultation with patient Dennis Sarmiento MD Work Phone: [facility] Surgical Comment on above: NO SHOW (Primary Dx) Start: 02-14-2022 ambulatory DENNIS SHEA [facility] Start: 02-01-2022 Letter encounter Dennis godoy MD Work Phone: [facility] Start: 11-15-2021 End: 11-15-2021 ambulatory Tamara Calero Other [employer] Other Start: 11-15-2021 Telephone encounter Tamara White i [facility] Start: 09-02-2021 ambulatory Nicole Garcia RN [facility] Oncology Surgical Start: 09-02-2021 Documentation procedure Nicole byers RN [facility] Oncology Surgical Start: 08-24-2021 End: 08-25-2021 ambulatory SELF PATIENT Facility:[facility] Start: 08-20-2021 End: 08-20-2021 ambulatory Tamara Calero Other [employer] Other Start: 08-20-2021 Encounter for genera l adult medical examination without abnormal findings Tamara Calero [facility] Start: 08-20-2021 Periodic preventive med est patient 40-64yrs Tamara Calero [facility] Start: 08-16-2021 End: 08-16-2021 Telemedicine consultation with patient Dennis Sarmiento MD [facility] Comment on above: Liver cyst (Primary Dx) Start: 08-16-2021 ambulatory JOHAN SARAIYA Facility: [facility] Start: 08-10-2021 End: 08-10-2021 Office outpatient visit 25 minutes Blue Surgery Resident [facility] Surgery General Comment on above: Postoperative follow -up (Primary Dx); Body mass index (BMI) 32.0-32.9, adult Start: 08-02-2021 Letter encounter Debo garza CASTING AND 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 [employer] Work Phone: [facility] Start: 08-01-2021 Letter encounter Debo Jasso [employer]STING AND 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 [employer]MENT Work Phone: [facility] Surgery General Start: 07-30-2021 End: 07-30-2021 Subsequent hospital visit by physician Dennis Sarmiento MD Work Phone: [facility] Radiology Comment on above: Arrived Start: 07-30-2021 Letter encounter Debo garza CASTING AND 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 [employer]MENT Work Phone: [facility] Radiology Start: 07-30-2021 End: 08-04-2021 Evaluation and management of inpatient Dennis Sarmiento MD Work Phone: Inpatient 8A Comment on above: Liver cyst (Primary Dx); Cyst of gallbladder; Postoperative pain Start: 07-16-2021 Telephone encounter Leandra hernandez [facility] Work Phone: [facility] Comment on above: Anemia; Consult with specialist Start: 07-15-2021 End: 07-16-2021 Office outpatient new 45 minutes Marcella Luevano [employer]ING AND 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 [employer]MENT Work Phone: [facility] Pre-Surgical Evaluation Comment on above: Preop testing (Prima ry Dx); Iron deficiency anemia, unspecified iron deficiency anemia type; Body mass index (BMI) 29.0-29.9, adult Start: 07-15-2021 End: 07-16-2021 Patient encounter status Marcella Chloé CASTING AND 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 [employer]MENT Work Phone: [facility] Pre-Surgical Evaluation Start: 07-07-2021 Letter encounter Dennis nuñez MD Work Phone: [facility] Surgery General Start: 07-06-2021 Admission to [facility] Dennis Sarmiento MD Work Phone: [facility] Surgery General Start: 07-02-2021 End: 07-02-2021 ambulatory Tamara Kelleyjeannayesenia Other [employer] Other Start: 07-02-2021 Telephone encounter Tamara Christopher yesenia [facility] Start: 06-16-2021 End: 06-16-2021 Subsequent hospital visit by physician Leobardo Barry MD Work Phone: [facility] Comment on above: Bile duct obstructio n; 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 Start: 06-14-2021 End: 06-15-[address] DOCTOR ELKINS Facility:[facility] Start: 06-11-2021 End: 06-11-2021 Telephone encounter Leigh Ann HOGAN Work Phone: [facility] Pre Surgical Evaluation Comment on above: Arrived Start: 06-07-2021 End: 06-07-2021 ambulatory Tamara Abdias Other [employer] Other Start: 06-07-2021 Office outpatient vi sit 25 minutes Tamara Calero [facility] Start: 04-16-2021 End: 04-22-2021 Evaluation and management of inpatient DR DOCTOR ELKINS Facility:[facility] Start: 03-19-2021 End: 03-19-[address] DOCTOR ELKINS Facility:[facility] Start: 03-11-2018 End: 03-11-2018 Emergency department patient visit [facility] Procedures Date Procedure Procedure Detail Performing Clinician Start: 06-11-2024 Urine culture Tamara Calero DO Work Phone: Start: 11-08-2023 Urine culture BENCH MOLDER-C Josette Mandel Work Phone: Start: 07-03-2023 Adult depression screening assessment Halina RAMON Work Phone: Start: 06-24-2022 Mammography Stephanie Webster MD Work [...] Phone: Start: 08-01-2021 Hepatic function panel Madeleine Amrit Hooks MD Work Phone: Start: 08-01-2021 End: 08-01-2021 Assay of magnesium Madeleine Kit Mauro Hooks MD Work Phone: Start: 07-31-2021 Hepatic function panel Madeleine Amrit Hooks MD Work Phone: Start: 07-31-2021 End: [...] MD Work Phone: Start: 07-30-2021 FFP Adrian Toledocooper CASTING AND PASTING SUPERVISOR-INFANTRY SENIOR SERGEANT Work Phone: Start: 07-30-2021 PLASMA STATUS Adrian Bermudez CASTING AND PASTING SUPERVISOR-INFANTRY SENIOR SERGEANT Work Phone: Start: 07-30-2021 RED BLOOD CELL COMPONENT Adrian lopez CASTING AND PASTING SUPERVISOR-INFANTRY SENIOR SERGEANT Work Phone: Start: 07-30-2021 RED BLOOD CELL UNIT STATUS Adrian calle CASTING AND PASTING SUPERVISOR-INFANTRY SENIOR SERGEANT Work Phone: Start: 07-30-2021 End: 07-30-2021 Assay of lactate Adrian Bermudez CASTING AND PASTING SUPERVISOR-INFANTRY SENIOR SERGEANT Work Phone: Start: 07-30-2021 End: 07-30-2021 Blood gases any combination ph pco2 po2 co2 hco3 Adrian Bermudez CASTING AND PASTING SUPERVISOR-INFANTRY SENIOR SERGEANT Work Phone: Start: 07-30-2021 End: 07-30-2021 Carboxyhemoglobin measurement Felix Bermudez CASTING AND PASTING SUPERVISOR-INFANTRY SENIOR SERGEANT Work Phone: Start: 07-30-2021 End: 07-30-2021 Transfusion of packed red blood cells Adrian Bermudez CASTING AND PASTING SUPERVISOR-INFANTRY SENIOR SERGEANT Work Phone: Start: 07-30-2021 Cul bact xcpt urine blood/stool aerobic isol Dennis Sarmiento MD Work Phone: Start: 07-30-2021 Cytology examination - general Dennis Sarmiento MD Work Phone: Start: 07-30-2021 RBC leukocytes reduced Adrian Salgado on CASTING AND PASTING SUPERVISOR-INFANTRY SENIOR SERGEANT Work Phone: Start: 07-30-2021 RED BLOOD CELL UNIT STATUS Adrian calle CASTING AND PASTING SUPERVISOR-INFANTRY SENIOR SERGEANT Work Phone: Start: 07-30-2021 End: 07-30-2021 EXPLORATION, COMMON BILE DUCT Dennis Waldron MD Work Phone: Start: 07-30-2021 End: 07-30-2021 LAPAROSCOPY, DIAGNOSTIC Dennis godoy MD Work Phone: Start: 07-30-2021 Urine test visual color cmprsn meths Dennis Sarmiento MD Work Phone: Start: 07-30-2021 Blood typing, ABO, Rho(D) and RBC antibody screening Marcella Luevano [facility] Work Phone: Start: 07-15-2021 Assay of ferritin Marcella Luevano [facility] Work Phone: Start: 06-16-2021 Ercp dx collection specimen brushing/washing Leobardo Barry MD Work Phone: Start: 06-16-2021 Urine test visual color cmprsn antonio Barry MD Work Phone: Start: 04-20-2021 Introduction of Nutritional Substance into Central Vein, Percutaneous Approach DR DOCTOR ELKINS Start: 04-19-2021 Insertion of Infusion Device into Upper Vein, Percutaneous Approach DR DOCTOR ELKINS Start: 05-31-2020 Adult depression screening assessment Stephanie Webster MD Work Phone: Start: 03-11-2018 RAPID INFLUENZA A/B ANTIGENS DIPESH MORRIS Plan of Treatment Date Care Activity Detail Author Start: 03-22-2029 DTaP,Tdap and Td Vaccines (2 - Td or Tdap) DTaP,Tdap and Td Vaccines (2 - Td or Tdap) [facility] Start: 03-22-2029 Tetanus vaccination [facility] Start: 01-29-2028 Shingles (RZV) Vaccine (1 of 2) Shingles (RZV) Vaccine (1 of 2) [facility] Start: 02-08-2026 Lipid panel Cholesterol [facility] Start: 06-22-2025 Screening for malignant neoplasm of cervix Pap Smear [facility] [email or web address] [facility] Start: 03-07-2025 Adult BMI Screening Adult BMI Screening [facility] Start: 03-07-2025 End: 03-07-2025 US.doppler Extremity arteries - bilateral for physiologic artery study Vas art doppler lwr bilat mult lev/PVR Vascular Ultrasound Routine Cigarette smoker motivated to quit Severe claudication (CMS-HCC) 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) Expected: 03/07/2025 (Approximate), Expires: 03/07/2025 [email or web address] Work Phone: Comment on above: Expected: 03/07/2025 (Approximate), Expi res: 03/07/2025 Start: 11-29-2024 Adult BMI Screening Adult [facility] Screening [facility] Start: 11-29-2024 Tobacco Screening [facility] [email or web address] [facility] Start: 11-04-2024 Influenza vaccination Influenza Vaccine [facility] Start: 08-30-2024 Adult BMI Screening Adult BMI Screening [facility] Start: 08-30-2024 Tobacco Screening [facility] Start: 07-02-2024 Adult BMI Follow Up Plan Adult BMI Follow Up Plan [facility] Start: 07-02-2024 Adult BMI Screening [facility] Start: 07-02-2024 Depression Screening Depression Screening [facility] Start: 07-02-2024 Tobacco Screening [facility]ening [facility] Start: 06-14-2024 [facility] Start: 06-11-2024 Hospital admission [facility] Start: 06-11-2024 [facility] Start: 06-11-2024 Urine culture [facility] Start: 06-11-2024 Bacteria identified in Urine by Culture Urine Culture [facility] Start: 05-17-2024 Adult BMI Screening [facility]ening [facility] Start: 02-29-2024 End: 02-29-2024 Patient encounter procedure 02/29/2024 8:30 AM EST Office Visit [facility] [address] [place], [place] [phone] Stephanie Webster MD [address], [facility] [address] [place] [address] [facility] Start: 11-30-2023 End: 11-30-2023 Patient encounter procedure 11/30/2023 8:30 AM EDT Office Visit [facility] [address] [place] [address] Stephanie Webster MD [address], [facility] [address] [place] [address] [facility] Start: 11-14-2023 [facility] Start: 11-09-2023 Hospital admission [facility] Start: 11-08-2023 [facility] Start: 11-08-2023 Bacteria identified in Urine by Culture [facility] Start: 11-05-2023 COVID-19 Vaccine ( season) COVID-19 Vaccine ( season) [facility] Start: 11-05-2023 Influenza vaccination Influenza Vaccine [facility] [email or web address] [facility] Start: 08-31-2023 End: 08-31-2023 Patient encounter procedure 08/31/2023 9:00 AM EDT Office Visit [facility] [address] [place] [address] Stephanie Webster MD [address], [place] [address] [place] [address] [facility] Start: 07-21-2023 Tobacco Screening Tobacco Screening [employer] [facility] Start: 07-03-2023 End: 08-30-2024 DBT Breast - bilateral screening Mammography screening bilateral with CAD Imaging Routine Encounter for screening mammogram for malignant neoplasm of breast Expected: 07/03/2023, Expires: 08/30/2024 [email or web address] Work Phone: Comment on above: Expected: 07/03/2023, Expires: Start: 06-25-2023 Screening for malignant neoplasm of breast Mammogram [employer] Start: 06-23-2023 Adult BMI Follow Up Plan Adult BMI Follow Up Plan [employer] Start: 05-18-2023 End: 05-17-2024 US.doppler Extremity arteries - bilateral for physiologic artery study Vas art doppler lwr bilat mult lev/PVR Vascular Ultrasound Routine Abnormal CT scan Expected: 05/18/2023, Expires: 05/17/2024 [email or web address] Work Phone: Comment on above: Expected: 05/18/2023, Expires: Start: 2023 Screening for malignant neoplasm of colon [facility] Start: 11-04-2022 Influenza vaccination Influenza Vaccine [employer] [facility] Start: 08-03-2022 Basic metabolic 2000 panel - Serum or Plasma Basic Metabolic Panel [facility] Start: 08-03-2022 Creatinine measurement Basic Metabolic Panel [facility] Start: 08-02-2022 Basic metabolic 2000 panel - Serum or Plasma [facility] Start: 08-01-2022 Basic metabolic 2000 panel - Serum or Plasma [facility] Start: 07-31-2022 Basic metabolic 2000 panel - Serum or Plasma Basic Metabolic Panel [facility] Start: 05-25-2022 End: 05-25-2022 [facility] Start: 05-25-2022 Hospital admission [facility] Start: 05-15-2022 [facility] Start: 05-11-2022 [facility] Start: 05-11-2022 Hospital admission [facility] Start: 05-11-2022 [facility] Start: 05-10-2022 Bacteria identified in Urine by Culture Urine Culture [facility] Start: 04-28-2022 Basic metabolic 2000 panel - Serum or Plasma Basic Metabolic Panel [facility] Start: 04-23-2022 Hemoglobin A1c measurement Hemoglobin A1C [facility] Start: 02-14-2022 End: 02-14-2022 Telemedicine consultation with patient 02/14/2022 Telemedicine Oncology Surgery Dennis Sarmiento MD [address] [place] [address] [facility] Oncology Surgical Start: 12-04-2021 Influenza vaccination Influenza Vaccine (#1) [facility] Start: 08-24-2021 End: 08-24-2021 Patient encounter procedure 08/24/2021 Office Visit General Surgery [facility] Surgery General Start: 08-16-2021 End: 08-16-2021 Evaluation and management of inpatient 08/16/2021 Telemedicine Oncology Surgery Dennis Sarmiento MD [address] [place] [address] [facility] Oncology Surgical Start: 08-16-2021 End: 08-16-2021 Telemedicine consultation with patient 08/16/2021 Telemedicine Oncology Surgery Dennis Sarmiento MD [address] [place] [address] [facility] Oncology Surgical Start: 08-10-2021 End: 08-10-2021 Patient encounter procedure 08/10/2021 Office Visit General Surgery [facility] Surgery General Start: 07-30-2021 End: 07-30-2021 Admission to same day surgery center 07/30/2021 Surgery General Surgery Dennis Sarmiento MD [address] [place] [id number] HEPATECTOMY, PARTIAL, LOBECTOMY [facility] Main OR Comment on above: HEPATECTOMY, [...] Hospital Encounter General Surgery Dennis Sarmiento MD [address] [place] [address] [facility] Main OR Start: 07-15-2021 End: 07-15-2021 Patient encounter procedure 07/15/2021 Office Visit Presurgical Evaluation Marcella Luevano, 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 AND 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 [employer]MENT [address] [place] [address] [place] [address] [facility] Pre-Surgical Evaluation Start: 07-07-2021 End: 07-07-2021 Evaluation and management of inpatient 07/07/2021 Office Visit Internal Medicine Jennifer Khan MD [address] [place] [address] [facility] [employer] Start: 06-22-2021 End: 06-22-2021 Patient encounter procedure 06/22/2021 Office Visit General Surgery Dennis Sarmiento MD [address] [place] [address] [facility] Surgery General Start: 06-16-2021 End: 06-16-2021 Admission to same day surgery center 06/16/2021 Surgery Gastroenterology Leobardo Barry MD [address] [place] [address] [place] [address] ERCP, GENERAL ANESTHESIA [facility] Comment on above: ERCP, GENERAL ANESTHESIA Start: 06-16-2021 End: 06-16-2021 ERCP, GENERAL ANESTHESIA [facility] Start: 06-16-2021 Subsequent hospital visit by physician 06/16/2021 Hospital Encounter Gastroenterology Leobardo Barry MD [address] [place] [address] [facility] Start: 05-31-2021 Depression Screening Depression Screening [facility] Start: 05-18-2020 Depression Screening [facility]ening [facility] Start: 2018 Screening for malignant neoplasm of breast [facility] Start: 1999 Screening for malignant neoplasm of cervix Pap Smear [facility] Start: 1997 Hepatitis A (HAV) Vaccine (optional start 19+ years) Hepatitis A (HAV) Vaccine (optional start 19+ years) [facility] Start: 1997 Hepatitis B vaccination Hepatitis B (HBV) Vaccine (1 of 3 - 19+ 3-dose series) [facility] Start: 1997 Pneumococcal vaccination Pneumococcal Vaccine(s) (1 of 2 - PCV) [facility] Start: 01-29-1996 Hepatitis C screening Hepatitis C Antibody [facility] Start: 01-29-1984 Pneumococcal vaccination [facility] Start: 1983 COVID-19 Vaccine (#1) COVID-19 Vaccine (#1) [facility] Start: 1983 COVID-19 Vaccine (1) COVID-19 Vaccine (1) [facility] Start: 1978 COVID-19 Vaccine (#1) COVID-19 Vaccine (#1) [facility] Start: 1978 Screening for malignant neoplasm of colon Colonoscopy [facility] Start: 1978 Tobacco Counseling Tobacco Counseling [facility] [email or web address] Sys tem Calculated LDL cholesterol level [facility] Cholesterol.total/Ch o lesterol in HDL [Mass Ratio] in Serum or Plasma [facility] Culture bacterial an y source anaerobic iso&id ANAEROBIC CULTURE, MISC Microbiology Routine Cyst of gallbladder Liver cyst 07/30/2021 4:19 PM EDT [facility] Culture tubercle/oth acid-fast bacilli any isol AFB CULTURE/SMEAR Microbiology Routine Cyst of gallbladder Liver cyst 07/30/2021 4:19 PM EDT [employer] ERCP, GENERAL ANESTHESIA ERCP, GENERAL ANESTHESIA Cyst [...] gallbladder Liver cyst PERIOPERATIVE SERVICES Patient Education [facility] Work Phone: Patient referral [facility] Work Phone: End: 06-16-2021 Surgical pathology procedure SURGICAL GI ANATOMIC PATHOLOGY Anatomic Pathology Routine One time for 1 Occurrences starting 06/16/2021 until 06/16/2021 [employer] Work Phone: Comment on above: One time for 1 Occurrences starting 06/04 until 06/16/2021 Surgical pathology procedure [employer] Work Phone: Comment on above: Release Upon Ordering for 1 Occurrences starting 07/30/2021, [address] [facility] Immunizations Immunization Date Immunization Notes Care Provider Fa cililoren 04-23-2021 Hemoglobin A1C Leigh Ann Katherine es CASTING AND 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 [employer]PLOYMENT Work Phone: [facility] 03-22-2019 tetanus toxoid, reduced diphtheria toxoid, and acellular pertussis vaccine, adsorbed Leigh Ann Teagan CASTING AND 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 [employer] DEPLOYMENT Work Phone: [facility] 01-29-2019 influenza, injectable, quadrivalent, preservative free Leigh Ann Teagan CASTING AND 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 [employer] DEPLOYMENT Work Phone: [facility] 01-29-2019 influenza virus vaccine, unspecified formulation Dennis Sarmiento MD [facility]: [email or web address] NEGATED: Highlighted row has not occurred!05-15-2019 measles, mumps and rubella virus vaccine Stephanie Webster MD Work Phone: [facility] Comment on above: Deferred: Other - Im munity NEGATED: Highlighted row has not occurred!05-15-2019 tetanus toxoid, reduced diphtheria toxoid, and acellular pertussis vaccine, adsorbed Stephanie Webster MD Work Phone: [facility] Comment on above: Deferred: Other - Gi stevie in office this 03/12/2019 NEGATED: Highlighted row has not occurred!05-15-2019 varicella virus vaccine Stephanie Webster MD Work Phone: [facility] Comment on above: Deferred: Other - Im munity NEGATED: Highlighted row has not occurred!05-14-2019 measles, mumps and rubella virus vaccine Stephanie Webster MD Work Phone: [facility] Comment on above: Deferred: Other NEGATED: Highlighted row has not occurred!05-14-2019 varicella virus vaccine Stephanie Webster MD Work Phone: [employer] Comment on above: Deferred: Other Payers Date Payer Category Payer Self-pay [id number] 2022 Medicaid [id number] 2020 Medicaid [id number] 2016 Unknown [id number] 1978 Unknown [id number] 2.16.8 [id number] 1978 Unknown [id number] 2.16.84 [id number] 1978 Unknown [id number] 2.16.84 [id number] 1978 Unknown [id number] 2.16.84 [id number] 1978 Unknown [id number] 2.16.84 [id number] 1978 Unknown [id number] 2.16. [id number] 1978 Unknown [id number] 2.16. [id number] 1978 Unknown [id number] 2.16. [id number] 1978 Unknown [id number] 2.16.8 [id number] 1978 Unknown [id number] 2.16.8 40.1.274863.3.579.2.1286 1978 Unknown [id number] 2.16.8 40.1.164083.3.579.2.1286 1959 Unknown [id number] 2.1 [id number] Unknown [id number] 2.16.8 40.1.448796.3.579.2.531 Unknown [id number] 2.16.8 [id number] Unknown [id number] 2.16.8 [id number] Unknown [id number] 2.16.8 [id number] Social History Date Type Detail Facility Start: 04-02-2021 End: 06-11-2021 Tobacco smoking status ILIS Smokes tobacco daily [facility] Start: 03-06-1996 History of tobacco use Cigarette Smo ker [facility] Start: 04-02-2021 End: 08-03-2021 Cigarettes smoked current (pack per day) - Reported 0.75 [facility] Start: 04-02-2021 End: 06-11-2021 Tobacco use and [...] SDOH Financial 5 [facility] Start: 05-31-2020 End: 08-03-2021 Sex Assigned At [facility] Start: 05-10-2022 End: 07-06-2024 Tobacco smoking status NHIS Smoker (finding) [facility] Start: 1980 Sex Assigned At Female F [facility] Do you belong to any clubs or organizations such as mandaen groups, unions, fraternal or athletic groups, or school groups? No [facility] Are you now , , , , never or living with a partner? [facility] How hard is it for y ou to pay for the very basics like food, housing, medical care, and heating Not hard at all [facility] Do you feel stress - tense, restless, nervous, or anxious, or unable to sleep at night because your mind is troubled all the time - these days [OSQ] Not at all [facility] The thought of harmi ng myself has occurred to me Never [facility] Start: 07-20-2022 Tobacco Comment using nicorett e occasionally [facility] Start: 06-29-2022 Alcohol Comment former abuser [facility] Start: 10-09-2014 End: 04-02-2021 Sex Female (finding) [facility] Start: 06-11-2024 Tobacco smoking stat us NHIS Never smoked tobacco (finding) [facility] Start: 02-14-2022 Details of drug misu se behavior Misused drugs in past (finding) [facility] (I/We) worried wheth er (my/our) food would run out before (I/we) got money to buy more. Never true [facility] NEGATED: Highlighted row [facility] Goals Date Patient Goal Desired Activity /State Functional Status Date Assessment Result Facility 06-14-2024 Functional status Patient at [facility] Work Phone: 11-14-2023 Functional status Patient at Baseline [facility] Work Phone: 05-15-2022 Functional status Patient at [facility] Work Phone: Mental Status Date Assessment Result Facility 06-14-2024 Cognitive function Cognitive Sta tus Patient at Baseline [facility] Work Phone: 11-14-2023 Cognitive function Cognitive Sta tus Patient at Baseline [facility] Work Phone: 05-15-2022 Cognitive function Cognitive Sta tus Patient at [facility] Work Phone: Clinical Notes 06-07-2021 to 08-06-2024 Note Date & Type Note Facility 08-06-2024 Note [place] Electrophysiology Consult Note [place] [facility] 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 She had a sleep study done which was positive for sleep apnea. She she is here to discuss about possible EP study and ablation. HPI: Shahla Arias is a 44 y.o. year old here today for a follow up. Patient started Toprol. Patient state she hasn't noticed heart palpitation since starting the Toprol. Patient complains of [place], lightheaded and fatigue. Patient denies chest pain, [...] file Physical Activity: Inactive (05/31/2020) Received from [facility], [facility] Exercise Vital Sign Days of Exercise per Week: 0 days Minutes of Exercise per Session: 0 min Stress: No Stress Concern Present (05/31/2020) Received from [facility], [facility] [place] [employer] - Occupational Stress Questionnaire Feeling of Stress : Not at all Social Connections: Socially Isolated (05/31/2020) Received from [facility], [facility] Social Connection and Isolation Panel [NHANES] Frequency of Communication with Friends and Family: Never Frequency of Social Gatherings with Friends and Family: Never Attends Spiritism Services: Never Active Member of Clubs or Organizations: No Attends Club or Organization Meetings: Never Marital Status: Intimate Partner Violence: Unknown (05/24/2024) Humiliation, Afraid, Rape, and Kick questionnaire Fear of Current or Ex-Partner: No Emotionally Abused: Not on file Physically Abused: Not on file Sexually Abused: Not on file Depression: At risk (07/03/2023) Received from [facility], [facility] PHQ-2 Total Score: 10 Housing Stability: Low Risk (05/24/2024) Housing Stability Vital Sign Unable to Pay for Housing in the Last Year: No Number of Times Moved in the Last Year: Not on file Homeless in the Last Year: No Utilities: Not At Risk (05/24/2024) [facility] Utilities Threatened with loss of utilities: No [...] kg (240 lb) SpO2 97% BMI 38.74 kg/m??? Smoking Status Every Day BSA 2.25 m??? Meds: Current Outpatient Medications on File Prior [...] 1 tablet by mouth if needed. omeprazole (more content not included)... [facility] 06-14-2024 Hospital Discharge instructions Additional Instructions Important Contact Information You can call [facility] at [phone] any time day or night if you have emergent questions or question regarding discharge instructions. If at any time you are feeling an increase in your psychiatric symptoms, call your physician or behavioral healthcare provider. If any time you have thoughts of harming yourself or others contact one of the following: Call 88 (available 26/09) Crisis Text Line (available 26/09) text 4HOPE to [phone] [facility] Hope Line (available 8 a.m. Midnight) call [phone] ([phone]) [facility] Work Phone: 06-13-2024 Progress note Note Date/Time June 13, 2024 7:23am [facility] [address] [place] [address] Psychiatry Progress Note Signed Patient: Shahla Arias MR#: [id number] : 1980 Acct:[id number] Age/Sex: 44 / F Adm Date: 5 Loc: 1S Room: 8C8833-3 Type : ADM IN Attending Dr: Vivek Antoine MD Copies to: ~ Date of Service: 06/13/2024 Subjective Subjective Narrative: Ms. Arias is a 44 year old female with history of schizoaffective disorder and depression and severe anxiety. She said she was anxious yesterday and made her feel tearful. She reported trying several medications and said Zoloft made her sick. Depression is moderate. She has not tried Trintellix and we discussed considering it if increasing Fetzima does not work. Patient cannot handle it anymore. Patient denies any SI/HI/AVH. Patient said she has been feeling sad since the of her mo. Patient keeps saying she is still trying to deal with the grief. Mental Status Exam (MSE) Appearance: grossly normal. Mental Status: mental status grossly normal Mood: depressed Affect: dysphoric Speech and Movement: speech and movement normal Attitude: cooperative Thought Process: normal Thought Content: Denies paranoid or delusional thoughts. Denied hallucinations,no homicidality and no suicidality. Does not appear to be responding to internalstimuli. Insight: Fair Judgment: Fair Goal: To be less depressed and anxious. Patient strengths and protective factors: Medication compliant, seeking helped, stable housing, support system intact. Patient's weaknesses and risk factors: Mental status Attitude for change: Fair AIMS: No abnormal movements noted. Score 0. Exam Physical Exam Vital Signs: Temp Pulse Resp BP Pulse Ox O2 Del Method 97.8 F 80 16 111/67 95 Room Air 06/12/24 22:04 06/12/24 22:04 06/12/24 22:04 06/12/24 22:04 06/12/24 22:04 06/12/24 22:04 Assessment/Plan Assessment/Plan (1) Depression with anxiety: Plan Plan: Patient presenting due to increased depression and anxiety. -Continue home medications, Ativan, Wellbutrin and Fetzima. Increase Fetzima to 60 mg PO Q daily. -Continue to monitor mental status -Monitor suicidal behaviors for safety of self (15-minute face check). -Encourage medication adherence. Risks, benefits, and alternatives of treatment explained -Recommend? attending groups and psychoeducation for building coping skills. -Risks, benefits and indications of medications were discussed with the patient.? -No abnormal movements noted on exam. AIMS is Zero. -Involve friends/family members to coordinate care and ensure appropriate outpatient appointments are scheduled prior to discharge. Current medications: Ativan 2 mg twice daily Aspirin EC 81 mg daily Atorvastatin 40 mg daily Bupropion XL 300 mg daily Cholecalciferol 50 mcg daily Clopidogrel bisulfate 75 mg daily Gabapentin 700 mg 3 times daily Hydrochlorothiazide 12.5 mg daily Irbesartan 150 mg daily Fetzima 60 mg daily Metoprolol succinate 50 mg daily Protonix 40 mg daily Documented By: Vivek Antoine MD 5 [id number] Signed By: <Electronically signed by Vivek Antoine MD> 06/13/24 0723 [facility] Work Phone: 1(315) 690-965604-10-2025 [place] [address] Psychiatry Progress Note Signed Patient: Shahla Arias MR#: [id number] : 1980 Acct:[id number] Age/Sex: 44 / F Adm Date: 5 Loc: Room: [address] [place] [address] Type : ADM IN Attending Dr: Vivek Antoine MD Copies to: ~ Date of Service: 06/13/2024 Subjective Subjective Narrative: Ms. Arias is a 44 year old female with history of schizoaffective disorder and depression and severe anxiety. She said she was anxious yesterday and made her feel tearful. She reported trying severalmedications and said Zoloft made her sick. Depression is moderate. She has not tried Trintellix andwe discussed considering it if increasing Fetzima does not work. Patient cannot handle it anymore. Patient denies any SI/HI/AVH. Patient said she has been feeling sad since the of her mo. Patient keeps saying she is still trying to deal with the grief. Mental Status Exam (MSE) Appearance: grossly normal. Mental Status: mental status grossly normal Mood: depressed Affect: dysphoric Speech and Movement: speech and movement normal Attitude: cooperative Thought Process: normal Thought Content: Denies paranoid or delusional thoughts. Denied hallucinations,no homicidality and no suicidality. Does not appear to be responding to internalstimuli. Insight: Fair Judgment: Fair Goal: To be less depressed and anxious. Patient strengths and protective factors: Medication compliant, seeking helped, stable housing, support system intact. Patient's weaknesses and risk factors: Mental status Attitude for change: Fair AIMS: No abnormal movements noted. Score 0. Exam Physical Exam Vital Signs: Temp Pulse Resp BP Pulse Ox O2 Del Method 97.8 F 80 16 111/67 95 Room Air 06/12/24 22:04 06/12/24 22:04 06/12/24 22:04 06/12/24 22:04 06/12/24 22:04 06/12/24 22:04 Assessment/Plan Assessment/Plan (1) Depression with anxiety: Plan Plan: Patient presenting due to increased depression and anxiety. -Continue home medications, Ativan, Wellbutrin and Fetzima. Increase Fetzima to 60 mg PO Q daily. -Continue to monitor mental status -Monitor suicidal behaviors for safety of self (15-minute face check). -Encourage medication adherence. Risks, benefits, and alternatives of treatment explained -Recommend? attending groups and psychoeducation for building coping skills. -Risks, benefits and indications of medications were discussed with the patient.? -No abnormal movements noted on exam. AIMS is Zero. -Involve friends/family members to coordinate care and ensure appropriate outpatient appointments are scheduled prior to discharge. Current medications: Ativan 2 mg twice daily Aspirin EC 81 mg daily Atorvastatin 40 mg daily Bupropion XL 300 mg daily Cholecalciferol 50 mcg daily Clopidogrel bisulfate 75 mg daily Gabapentin 700 mg 3 times daily Hydrochlorothiazide 12.5 mg daily Irbesartan 150 mg daily Fetzima 60 mg daily Metoprolol succinate 50 mg daily Protonix 40 mg daily Documented By: Vivek Antoine MD 5 [id number] Signed By: 06/13/24 0723 [facility]04-09-2025 History and physical note Author Vivek washburn [facility] Note Date/Time June 12, 2024 1:52 pm [facility] [address] [place] [address] Psychiatry H&P Signed Patient: Shahla Arias MR#: [id number] : 1980 Acct:[id number] Age/Sex: 44 / F Adm Date: 5 Loc: 1S Room: 4R7280-5 Type: ADM IN Attending Dr: Vivek Antoine MD Copies to: MD Josette Arredondo, [facility]~ Date of Service: 06/12/2024 HPI History of Present Illness History of present illness: Ms. Arias is a 44 year old female with history of schizoaffective disorder and depression and severe anxiety. According to the admission note patient is here voluntarily. Patient said she wakes up with panic attacks and has depression in the afternoon. Patient ratesanxiety 05/13, depression 11/13. Denies SI/HI/AVH. Patient states goal is to beless depressed and anxious. Patient was personally seen by me on the day of the encounter. I reviewed the history and performed the ahmadi elements of the assessment. I formulated the planof care and confirmed this with the medical student as noted below At the time of the interview patient presented as depressed and tearful. Patient said for the last year she has really been struggling with her depression and her anxiety. She said her mom in July 2023 and since then she has been grieving her and really struggling. Patient said she wakes up anxiety attacks in the morning, her Ativan has been very helpful with this. Shesays her depression has been getting harder to manage. Patient said she has been taking her medications daily. Patient said she was started on Fetzima lastmon. She did not notice is making a difference with her depression, she thinks upping the dose would help. Patient said she has lost 7 pounds recently as she has not been hungry and not wanting to eat. She said every time she eatsshe gets very depressed. Patient said she has been struggling to sleep, she wakes up a lot. Patient cannot handle it anymore. Patient denies any SI/HI/AVH. Patient got very tearful when we discussed her mother, saying has been very hard to lose her. Patient keeps saying she is still trying to deal with the grief. Past psych history: Schizoaffective disorder, depression, severe anxiety. Past psych hospitalizations: Reported she has been hospitalized multiple times, most recent was in November 2023. Past suicide attempts: Patient denies any previous attempts Previous medications: Patient has been on Ativan, Wellbutrin and Fetzima Alcohol and drug use: Denies alcohol or drug use. Smokes daily. Living: Patient lives with her and 5-year-old daughter Employment: Patient has not worked for the last couple years, she works her and her make too much to be eligible for Medicaid. Relationships: Patient was close with mother. Patient is close with her , but he struggles with mental health issues as well and sometimes minimizes how she feels. She said he does not understand how hard it is to losea parent as both of his are still alive. Mental Status Exam (MSE) Appearance: grossly normal. Mental Status: mental status grossly normal Mood: depressed, tearful Affect: dysphoric Speech and Movement: speech and movement normal Attitude: cooperative Thought Process: normal Thought Content: Denies paranoid or delusional thoughts. Denied hallucinations,no homicidality and no suicidality. Does not appear to be responding to internalstimuli. Insight: Poor Judgment: Poor Goal: To be less depressed and anxious. Patient strengths and protective factors: Medication compliant, seeking helped, stable housing, support system intact. Patient's weaknesses and risk factors: Mental status Attitude for change: Fair AIMS: No abnormal movements noted. Score 0. Review of Systems Constitutional: Pt denies fatigue, malaise. Neuro: Denies dizziness/lightheadedness. HEENT: Denies vision/hearing changes. Pulmonary: Denies SOB, dyspnea, cough, wheezing. Cardiac: Denies chest pain/pressure. Denies edema, palpitations. GI: Denies abdominal pain, heartburn, N/V. Denies constipation and diarrhea : Denies dysuria, hematuria, polyuria. Physical exam General: not in any acute distress Skin: intact HEENT: head atraumatic, face symmetrical. Pulm: Breathing normally without excessive effort Cardio: Regular rate and rhythm Abdomen: Normal inspection Musculoskeletal: Moves all extremities, normal strength all extremities. Neuro: Pt alert, oriented x3. Gait normal. CNI: Smell intact CNII: Visual gerardo intact CNIII,IV,: EOM intact, no nystagmus. CNV: Sensation intact to light touch. CNVII: Raises eyebrows, smile/frown, puff out cheeks symmetrically. CNVIII: Hearing intact bilaterally. CNIX,X: Voice normal, soft palate elevation normal, symmetrical. CNXI: Shoulder shrug strong, equal bilaterally. CNXII: Tongue protrusion midline Review of Systems Review of Systems All other systems reviewed & are negative unless noted below or in HPI [facility] Medical History Essential hypertension Depression with anxiety [...] of carpal tunnel release of both wrists Nixa teeth removed History of cholecystectomy Family History Mother Hypertension Daughter Asthma [facility] Relation: Daughter(s) Mother Cancer [facility] Problem: Diagnosed with Cancer History of stroke [facility] Problem: Diagnosed with Stroke Social History Smoking Status: Current every day smoker Tobacco Type: cigarettes Substance Use Type: None Substance Abuse Comment: 4 tall boys Meds Medications and Allergies Allergies metronidazole (From Flagyl) Allergy (Intermediate, Verified 06/11/24 16:44) Unknown Reaction, flu like symptoms ciprofloxacin (From Cipro) Allergy (Unknown, Verified 06/11/24 16:44) Fatigued, fever penicillin G Allergy (Unknown, Verified 06/11/24 16:44) swelling Quinolones Adverse Reaction (Verified 06/11/24 16:44) Fatigued Home Medications aspirin 81 mg tablet,delayed release 81 mg PO DAILY 08/21/23 [History Confirmed 06/11/24] atorvastatin 40 mg tablet 40 mg PO DAILY 08/21/23 [History Confirmed 06/11/24] clopidogrel 75 mg tablet 75 mg PO DAILY 08/21/23 [History Confirmed 06/11/24] olanzapine 5 mg tablet 5 mg PO TID PRN agitation 08/21/23 [History Confirmed 06/11/24] olmesartan 20 mg-hydrochlorothiazide 12.5 mg tablet 1 tab PO DAILY 08/21/23 [History Confirmed 06/11/24] gabapentin 300 mg capsule 600 mg PO TID 08/28/23 [History Confirmed 06/11/24] omeprazole 40 mg capsule,delayed release 40 mg PO BID 08/28/23 [History Confirmed 06/11/24] cholecalciferol (vitamin D3) 50 mcg (2,000 unit) tablet 50 mcg PO DAILY 09/28/23[History Confirmed 06/11/24] lorazepam 1 mg tablet 2 mg PO BID anxiety 11/08/23 [History Confirmed 06/11/24] albuterol sulfate 90 mcg/actuation aerosol inhaler 2 inh inhalation Q4-6H PRN shortness of breath or wheezing #8.5 grams 03/31/24 [Rx Confirmed 06/11/24] bupropion HCl 300 mg 24 hr tablet, extended release 300 mg PO DAILY 06/11/24 [History Confirmed 06/11/24] levomilnacipran 20 mg capsule,24 hr,extended release (Fetzima) 40 mg PO DAILY 06/11/24 [History Confirmed 06/11/24] metoprolol succinate 50 mg tablet,extended release 24 hr 50 mg PO DAILY 06/11/24[History Confirmed 06/11/24] Exam Physical Exam Vital Signs: Temp Pulse Resp BP Pulse Ox O2 Del Method 98.1 F 85 17 108/66 95 Room Air 06/12/24 07:30 06/12/24 07:30 06/12/24 07:30 06/12/24 07:30 06/12/24 07:30 06/12/24 09:00 Results - Psychiatry Labs 06/11/24 17:15 06/11/24 17:15 Psychiatry Labs: 06/11/24 06/11/24 17:15 17:24 RBC 4.18 Hgb 12.3 Hct 37.1 MCV 88.8 MCH 29.5 MCHC 33.2 RDW 16.0 H Plt Count 311 MPV 7.7 Sodium 139 Potassium 4.1 Chloride 103 Carbon Dioxide 29.2 Anion Gap 10.9 BUN 18 Creatinine 1.14 Calcium 9.8 Total Bilirubin 0.4 AST 20 ALT 22 Alkaline Phosphatase 84 Total Protein 7.5 Albumin 4.0 Urine Color Yellow Urine Appearance Clear Urine pH 5.5 Ur Specific [place] 1.025 Urine Protein 20 H Urine Glucose (UA) Normal Urine Ketones Trace H Urine Occult Blood Negative Urine Nitrite Negative Ur Leukocyte Esterase 3+ H Urine RBC 3-4 Urine WBC 10-19 H Microbiology Microbiology: Microbiology - Results from entire visit 06/11/24 17:24 Urine - Clean-Voided Midstream Urine Culture - Preliminary <9,000 colonies/ml mixed bacterial skin contaminants 1 Day Assessment/Plan (1) Depression with anxiety: Plan Patient is a 44-year-old female with a history of schizoaffective disorder, anxiety, and depression. Patient is presenting with increased depression, anxiety and sleep disturbances. Plan: Patient presenting due to increased depression and anxiety. -Continue home medications, Ativan, Wellbutrin and Fetzima -Continue to monitor mental status -Monitor suicidal behaviors for safety of self (15-minute face check). -Encourage medication adherence. Risks, benefits, and alternatives of treatment explained -Recommend? attending groups and psychoeducation for building coping skills. -Risks, benefits and indications of medications were discussed with the patient.? -No abnormal movements noted on exam. AIMS is Zero. -Involve friends/family members to coordinate care and ensure appropriate outpatient appointments are scheduled prior to discharge. Current medications: Ativan 2 mg twice daily Aspirin EC 81 mg daily Atorvastatin 40 mg daily Bupropion XL 300 mg daily Cholecalciferol 50 mcg daily Clopidogrel bisulfate 75 mg daily Gabapentin 700 mg 3 times daily Hydrochlorothiazide 12.5 mg daily Irbesartan 150 mg daily Fetzima 40 mg daily Metoprolol succinate 50 mg daily Protonix 40 mg daily Documented By: Vivek Antoine MD [id number] Signed By: <Electronically signed by Vivek Antoine MD> 06/12/24 1162 [facility] Work Phone: 1(456) 896-861704-09-2025 History and physical [place] [id number] Psychiatry H&P Signed Patient: Shahla Arias MR#: [id number] 2579 : 1980 Acct:[id number] Age/Sex: 44 / F Adm Date: 5 Loc: 1S Room: [address] [place] [address] Type: ADM IN Attending Dr: Vivek Antoine MD Copies to: MD Josette Arredondo CNP~ Date of Service: 06/12/2024 HPI History of Present Illness History of present illness: Ms. Arias is a 44 year old female with history of schizoaffective disorder and depression and severe anxiety. According to the admission note patient is here voluntarily. Patient said she wakes up with panic attacks and has depression in the afternoon. Patient ratesanxiety 05/13, depression 11/13. Denies SI/HI/AVH. Patient states goal is to beless depressed and anxious. Patient was personally seen by me on the day of the encounter. I reviewed the history and performedthe ahmadi elements of the assessment. I formulated the planof care and confirmed this with the medical student as noted below At the time of the interview patient presented as depressed and tearful. Patient said for the last year she has really been struggling with her depression and her anxiety. She said her mom in July 2023 and since then she has been grieving her and really struggling. Patient said she wakes up anxiety attacks in the morning, her Ativan has been very helpful with this. Shesays her depression has been getting harder to manage. Patient said she has been taking her medications daily. Patient said she was started on Fetzima lastmon. She did not notice is making a difference with her depression,she thinks upping the dose would help. Patient said she has lost 7 pounds recently as she has not been hungry and not wanting to eat. She said every time she eatsshe gets very depressed. Patient saidshe has been struggling to sleep, she wakes up a lot. Patient cannot handle it anymore. Patient denies any SI/HI/AVH. Patient got very tearful when we discussed her mother, saying has been very hard to lose her. Patient keeps saying she is still trying to deal with the grief. Past psych history: Schizoaffective disorder, depression, severe anxiety. Past psych hospitalizations: Reported she has been hospitalized multiple times, most recent was in November 2023. Past suicide attempts: Patient denies any previous attempts Previous medications: Patient has been on Ativan, Wellbutrin and Fetzima Alcohol and drug use: Denies alcohol or drug use. Smokes daily. Living: Patient lives with her and 5-year-old daughter Employment: Patient has not worked for the last couple years, she works her and her make too much to be eligible for Medicaid. Relationships: Patient was close with mother. Patient is close with her , but he struggles with mental health issues as well and sometimes minimizes how she feels. She said he does not understand how hard it is to losea parent as both of his are still alive. Mental Status Exam (MSE) Appearance: grossly normal. Mental Status: mental status grossly normal Mood: depressed, tearful Affect: dysphoric Speech and Movement: speech and movement normal Attitude: cooperative Thought Process: normal Thought Content: Denies paranoid or delusional thoughts. Denied hallucinations,no homicidality and no suicidality. Does not appear to be responding to internalstimuli. Insight: Poor Judgment: Poor Goal: To be less depressed and anxious. Patient strengths and protective factors: Medication compliant, seeking helped, stable housing, support system intact. Patient's weaknesses and risk factors: Mental status Attitude for change: Fair AIMS: No abnormal movements noted. Score 0. Review of Systems Constitutional: Pt denies fatigue, malaise. Neuro: Denies dizziness/lightheadedness. HEENT: Denies vision/hearing changes. Pulmonary: Denies SOB, dyspnea, cough, wheezing. Cardiac: Denies chest pain/pressure. Denies edema, palpitations. GI: Denies abdominal pain, heartburn, N/V. Denies constipation and diarrhea : Denies dysuria, hematuria, polyuria. Physical exam General: not in any acute distress Skin: intact HEENT: head atraumatic, face symmetrical. Pulm: Breathing normally without excessive effort Cardio: Regular rate and rhythm Abdomen: Normal inspection Musculoskeletal: Moves all extremities, normal strength all extremities. Neuro: Pt alert, oriented x3. Gait normal. CNI: Smell intact CNII: Visual gerardo intact CNIII,IV,: EOM intact, no nystagmus. CNV: Sensation intact to light touch. CNVII: Raises eyebrows, smile/frown, puff out cheeks symmetrically. CNVIII: Hearing intact bilaterally. CNIX,X: Voice normal, soft palate elevation normal, symmetrical. CNXI: Shoulder shrug strong, equal bilaterally. CNXII: Tongue protrusion midline Review of Systems Review of Systems All other systems reviewed & are negative unless noted below or in HPI [facility] Medical History Essential hypertension Depression with anxiety [...] of carpal tunnel release of both wrists Nixa teeth removed History of cholecystectomy Family History Mother Hypertension Daughter Asthma [facility] Relation: Daughter(s) Mother Cancer [facility]am[facility] Problem: Diagnosed with Cancer History of stroke [facility]am[facility] Problem: Diagnosed with Stroke Social History Smoking Status: Current every day smoker Tobacco Type: cigarettes Substance Use Type: None Substance Abuse Comment: 4 tall boys Meds Medications and Allergies Allergies metronidazole (From Flagyl) Allergy (Intermediate, Verified 06/11/24 16:44) Unknown Reaction, flu like symptoms ciprofloxacin (From Cipro) Allergy (Unknown, Verified 06/11/24 16:44) Fatigued, fever penicillin G Allergy (Unknown, Verified 06/11/24 16:44) swelling Quinolones Adverse Reaction (Verified 06/11/24 16:44) Fatigued Home Medications aspirin 81 mg tablet,delayed release 81 mg PO DAILY 08/21/23 [History Confirmed 06/11/24] atorvastatin 40 mg tablet 40 mg PO DAILY 08/21/23 [History Confirmed 06/11/24] clopidogrel 75 mg tablet 75 mg PO DAILY 08/21/23 [History Confirmed 06/11/24] olanzapine 5 mg tablet 5 mg PO TID PRN agitation 08/21/23 [History Confirmed 06/11/24] olmesartan 20 mg-hydrochlorothiazide 12.5 mg tablet 1 tab PO DAILY 08/21/23 [History Confirmed 06/11/24] gabapentin 300 mg capsule 600 mg PO TID 08/28/23 [History Confirmed 06/11/24] omeprazole 40 mg capsule,delayed release 40 mg PO BID 08/28/23 [History Confirmed 06/11/24] cholecalciferol (vitamin D3) 50 mcg (2,000 unit) tablet 50 mcg PO DAILY 09/28/23[History Confirmed 06/11/24] lorazepam 1 mg tablet 2 mg PO BID anxiety 11/08/23 [History Confirmed 06/11/24] albuterol sulfate 90 mcg/actuation aerosol inhaler 2 inh inhalation Q4-6H PRN shortness of breath or wheezing #8.5 grams 03/31/24 [Rx Confirmed 06/11/24] bupropion HCl 300 mg 24 hr tablet, extended release 300 mg PO DAILY 06/11/24 [History Confirmed 06/11/24] levomilnacipran 20 mg capsule,24 hr,extended release (Fetzima) 40 mg PO DAILY 06/11/24 [History Confirmed 06/11/24] metoprolol succinate 50 mg tablet,extended release 24 hr 50 mg PO DAILY 06/11/24[History Confirmed 06/11/24] Exam Physical Exam Vital Signs: Temp Pulse Resp BP Pulse Ox O2 Del Method 98.1 F 85 17 108/66 95 Room Air 06/12/24 07:30 06/12/24 07:30 06/12/24 07:30 06/12/24 07:30 06/12/24 07:30 06/12/24 09:00 Results - Psychiatry Labs 06/11/24 17:15 06/11/24 17:15 Psychiatry Labs: 06/11/24 06/11/24 17:15 17:24 RBC 4.18 Hgb 12.3 Hct 37.1 MCV 88.8 MCH 29.5 MCHC 33.2 RDW 16.0 H Plt Count 311 MPV 7.7 Sodium 139 Potassium 4.1 Chloride 103 Carbon Dioxide 29.2 Anion Gap 10.9 BUN 18 Creatinine 1.14 Calcium 9.8 Total Bilirubin 0.4 AST 20 ALT 22 Alkaline Phosphatase 84 Total Protein 7.5 Albumin 4.0 Urine Color Yellow Urine Appearance Clear Urine pH 5.5 Ur Specific [place] 1.025 Urine Protein 20 H Urine Glucose (UA) Normal Urine Ketones Trace H Urine Occult Blood Negative Urine Nitrite Negative Ur Leukocyte Esterase 3+ H Urine RBC 3-4 Urine WBC 10-19 H Microbiology Microbiology: Microbiology - Results from entire visit 06/11/24 17:24 Urine - Clean-Voided Midstream Urine Culture - Preliminary <9,000 colonies/ml mixed bacterial skin contaminants 1 Day Assessment/Plan (1) Depression with anxiety: Plan Patient is a 44-year-old female with a history of schizoaffective disorder, anxiety, and depression. Patient is presenting with increased depression, anxiety and sleep disturbances. Plan: Patient presenting due to increased depression and anxiety. -Continue home medications, Ativan, Wellbutrin and Fetzima -Continue to monitor mental status -Monitor suicidal behaviors for safety of self (15-minute face check). -Encourage medication adherence. Risks, benefits, and alternatives of treatment explained -Recommend? attending groups and psychoeducation for building coping skills. -Risks, benefits and indications of medications were discussed with the patient.? -No abnormal movements noted on exam. AIMS is Zero. -Involve friends/family members to coordinate care and ensure appropriate outpatient appointments are scheduled prior to discharge. Current medications: Ativan 2 mg twice daily Aspirin EC 81 mg daily Atorvastatin 40 mg daily Bupropion XL 300 mg daily Cholecalciferol 50 mcg daily Clopidogrel bisulfate 75 mg daily Gabapentin 700 mg 3 times daily Hydrochlorothiazide 12.5 mg daily Irbesartan 150 mg daily Fetzima 40 mg daily Metoprolol succinate 50 mg daily Protonix 40 mg daily Documented By: Vivek Antoine MD [id number] Signed By: 06/12/24 1352 [facility]04-08-2025 Evaluation note* Diagnosis Onset Date Resolution Status Admit Date Major depression acute June 8:59pm Depression with anxiety resolved A pril 2024 8:59pm Suicidal ideation resolved June 112024 8:59pm Bronchitis with asthma, acute noneac tive June 25, 2024 2:40pm [facility] Work Phone: [phone]) 450-676104-08-2025 NoteUT Electrophysiology Consult Note [place] [facility] - [facility] Reason for visit: WPW HPI: Shahla Arias is a 44 y.o. year old with past medical history of SHARI and palpitations was previusly seen by Dr Umanzor. She was evaluated with cath for perfusion defect on stress test which was non significant. EKG portion did not reveal worsening preexcitation. Patient states she had a heart incident on Monday, patient states she felt her heart flutter/palpitations, made her feel like she was going to pass out. Patient states it took her breath away a little bit. She was previously prescribed BB but she dd not take it. PMH: Past Medical History: Diagnosis Date Alcohol abuse GERD (gastroesophageal reflux disease) Hypertension PAD (peripheral artery disease) Palpitations Raynaud's disease PSH: Past Surgical History: Procedure Laterality Date CARDIAC CATHETERIZATION CARPAL TUNNEL RELEASE SECTION, CLASSIC CHOLECYSTECTOMY CYST REMOVAL SH: Social Determinants of Health Tobacco Use: High Risk (06/11/2024) Patient History Smoking Tobacco Use: Every Day [...] file Physical Activity: Inactive (05/31/2020) Received from [facility], [facility] Exercise Vital Sign Days of Exercise per Week: 0 days Minutes of Exercise per Session: 0 min Stress: No Stress Concern Present (05/31/2020) Received from [facility], [facility] [place] [employer] - Occupational Stress Questionnaire Feeling of Stress : Not at all Social Connections: Socially Isolated (05/31/2020) Received from [facility], [facility] Social Connection and Isolation Panel [NHANES] Frequency of Communication with Friends and Family: Never Frequency of Social Gatherings with Friends and Family: Never Attends Spiritism Services: Never Active Member of Clubs or Organizations: No Attends Club or Organization Meetings: Never Marital Status: Intimate Partner Violence: Unknown (05/24/2024) Humiliation, Afraid, Rape, and Kick questionnaire Fear of Current or Ex-Partner: No Emotionally Abused: Not on file Physically Abused: Not on file Sexually Abused: Not on file Depression: At risk (07/03/2023) [facility] PHQ-2 Total Score: 10 Housing Stability: Low Risk (05/24/2024) Housing Stability Vital Sign Unable to Pay for Housing in the Last Year: No Number of Times Moved in the Last Year: Not on file Homeless in the Last Year: No Utilities: Not At Risk (05/24/2024) [facility] Utilities Threatened with loss of utilities: No Health Literacy: Not on file Allergies: Allergies Allergen Reactions Ciprofloxacin Other Facial edema - per pt Metronidazole Other Flu like s/s Facial edema - per pt Penicillins Other Facial edema - per pt Weight: 107kg Visit Vitals BP 109/80 (BP Location: Right arm, Patient Position: Sitting) Pulse 95 Ht 1.676 m (5' 6 ) Wt 107 kg (235 lb) SpO2 97% BMI 37.93 kg/m??? Smoking Status Every Day BSA 2.23 m??? Meds: Current Outpatient Medications on File Prior [...] 8 (eight) hours if needed for anxiety. OLANZapine (ZyPREXA) 5 mg tablet take 1 tablet by mouth three times a day if needed for AGITATION olmesartan-hydrochlorothiazide (BENIcar HCT) 20-12.5 mg tablet Take 1 tablet by mouth if needed. omeprazole (PriLOSEC) [address] capsule Take 40 mg by mouth in the morning and at bedtime. hydrOXYzine pamoate (Vistaril) 25 mg capsule Take 25 mg by mouth. vilazodone (Viibryd) 10 mg tablet Take 10 (more content not included)... [facility]03-22-2025 NoteHospital Medicine Discharge Summary Final Discharge Diagnosis: NSTEMI, likely demand ischemia in setting of acute illness. Abnormal stress test with anterior reversible defect and TID. Pre-Excitation on EKG Peripheral artery disease, follows with vascular , on dual antiplatelet therapy. Normocytic anemia Primary hypertension Class II obesity Admission Diagnosis: NSTEMI (non-ST elevated myocardial infarction) (CMS/[facility]) [I21.4] Hospital course: 44-year-old female with past medical history significant for peripheral vascular disease on DAPT, uncontrolled hypertension, obesity who presented initially to [facility] due to nausea/vomiting and abdominal pain. Initial workup at [facility] was significant for elevated high-sensitivity troponin, stress test was ordered but the patient was not able to complete the stress test and the patient was transferred to [facility] to be evaluated by cardiology. Patient was admitted to the stepdown unit and she was seen by cardiology, she had coronary angiogram done on 05/25/2024 showing mild diffuse coronary artery disease. High-sensitivity troponin trended down, patient was feeling back to normal with no more nausea/vomiting. Plan of care discussed with cardiology on the day of discharge, patient will need to continue with her antiplatelets and high intensity statin. Patient was advised that she will need to monitor her blood pressure at home and to follow-up closely with her PCP in case she needs further adjustment of her antihypertensive medications. Patient was discharged home in stable condition on 05/25/2024. Surgical, Invasive or Diagnostic Procedures Done During Admission: Cardiac Cath Consultations During Admission: Cardiology Dear OSCAR Mandel Judy is advised to follow up with you within 1-2 weeks. Items to follow up in ambulatory setting: None Follow-up with: Cardiology Scheduled appointments: Future Appointments Date Time Provider Department Center 06/11/2024 11:30 AM Cornell Rodriguez MD [facility] Your medication list CONTINUE taking these medications Instructions Last Dose Given Next Dose Due albuterol 90 mcg/actuation inhaler aspirin 81 mg EC tablet atorvastatin 40 mg tablet Commonly known as: Lipitor buPROPion XL 300 mg 24 hr tablet Commonly known as: Wellbutrin XL cholecalciferol 50 MCG (1999) tablet Commonly known as: Vitamin D-3 clopidogrel 75 mg tablet Commonly known as: Plavix Fetzima 20 mg extended release capsule Generic drug: levomilnacipran gabapentin 600 mg tablet Commonly known as: Neurontin LORazepam 1 mg tablet Commonly known as: Ativan OLANZapine 5 mg tablet Commonly known as: ZyPREXA olmesartan-hydrochlorothiazide 20-12.5 mg tablet Commonly known as: BENIcar HCT omeprazole [address] capsule Commonly known as: PriLOSEC Shahla is allergic to ciprofloxacin, metronidazole, and penicillins. Disposition: Home or Self Care () Discharge Condition: Stable Code Status: Full Code Diagnostic Results Hematology: Results from last 7 days Lab Units 05/25/24 0417 05/24/24 0825 WBC AUTO 10*3/uL 5.23 5.00 HEMOGLOBIN g/dL 9.7* 9.7* HEMATOCRIT % 30.7* 30.5* MCV fL 91.4 92.7 PLATELETS AUTO 10*3/uL 189 153 Chemistry: Results from last 7 days Lab Units 05/25/24 0417 05/24/24 0825 SODIUM mmol/L 138 139 POTASSIUM mmol/L 4.9 4.6 CHLORIDE mmol/L 108* 107 CO2 mmol/L 25 28 BUN mg/dL 11 11 CREATININE mg/dL 1.04 1.06 GLUCOSE mg/dL 100 99 MAGNESIUM mg/dL -- 1.7* CALCIUM mg/dL 8.7 8.6 Results from last 7 days Lab Units 05/24/24 0825 AST U/L 21 ALT U/L 20 ALK PHOS U/L 65 BILIRUBIN TOTAL mg/dL 0.5 LIPASE U/L 39 Test Results Pending At Discharge: Diet at the time of discharge: regular diet and cardiac diet Nutrition Screen Activity: Patient currently has no discharge activity orders Objective Blood pressure 157/64, pulse 90, temperature 36.4 ???C (97.5 ???F), temperature source Temporal, resp. rate 17, height 1.676 m (5' 6 ), weight 110 kg (242 lb 9.6 oz), SpO2 96%. Cardiology: Normal rate, regular rhythm. Lungs: Clear to auscultation, no wheezes, rales or rhonchi, symmetric air entry. Abdomen: Soft, non tender, non distended. Total time for discharge - review of data, exam, discussion with providers and care-team, med-rec and orders, arranging follow up, counseling of patient and/or family and documentation was 38 minutes. Signed Shreyas Rodriguez MD [facility] Medicine 05/25/2024 10:33 AM CC: [facility]03-22-2025 Note Attestation signed by Vira Heath MD at 05/25/2024 1:59 PM 05/25/24 By using the attestations below, the signing clinician agrees that I have read and verify that the documentation has been personally reviewed by me and ensure that the documentation accurately reflects the encounter. GC: I personally saw this patient on the day of the encounter, performed the ahmadi portion(s) of the service and participated in the management and confirm the resident's documentation. Please note there may be an additional personal documentation from me. My additional comments are as follows: Patient seen and examined at bedside, her EKG was personally reviewed by me. Which shows evidence of manifest preexcitation, possibly left lateral pathway. Although on the stress test it seems that the pathway is at low risk of rapid conduction and therefore may be a low risk pathway but such a determination merely based on a stress test alone has its limitation. Therefore, I had a long conversation with her regarding a diagnostic electrophysiology study and she will contemplate that further. To that end, I will follow-up with her as an outpatient to continue the discussion regarding diagnostic EP study plus minus ablation. Until then, she would get an event monitor at the time of discharge. Vira Heath MD, ScM, MSc Cardiac [place] [employer] Email: [email or web address] Cardiology Progress Note Subjective Subjective: Patient was seen and examined. Reported feeling well. No chest pain, or shortness of breath. No abdominal pain, nausea, or vomiting. No orthopnea or paroxysmal nocturnal dyspnea. No lower leg swelling. No acute events overnight. Objective Current Facility-Administered Medications: acetaminophen (Tylenol) tablet 650 mg, 650 mg, oral, q6h PRN, Cj Robles MD aspirin EC tablet 81 mg, 81 mg, oral, Daily, Cj Robles MD atorvastatin (Lipitor) tablet 40 mg, 40 mg, oral, Daily, Cj Robles MD buPROPion XL (Wellbutrin XL) 24 hr tablet 300 mg, 300 mg, oral, Daily, Cj Robles MD clopidogrel (Plavix) tablet 75 mg, 75 mg, oral, Daily, Cj Robles MD diphenhydrAMINE-AlumMg Koedsy-Uhjkyr-Axixumxhn (MAGIC Mouthwash) suspension 10 mL, 10 mL, Mouth/Throat, TID PRN, Keith Shay MD, 10 mL at 05/25/24 0447 LORazepam (Ativan) tablet 1 mg, 1 mg, oral, q8h PRN, Cj Robles MD, 1 mg at 05/25/24 0618 OLANZapine (ZyPREXA) tablet 5 mg, 5 mg, oral, BID PRN, Cj Robles MD ondansetron ODT (Zofran-ODT) disintegrating tablet 4 mg, 4 mg, oral, q8h PRN OR ondansetron HCl (PF) (Zofran) injection 4 mg, 4 mg, intravenous, q6h PRN, Cj Robles MD sennosides-docusate sodium (Katiana-Colace) 8.6-50 mg per tablet 1 tablet, 1 tablet, oral, BID PRN, Cj Robles MD sodium chloride 0.9 % infusion, 50 mL/hr, intravenous, Continuous, Erasto Dawson MD, Last Rate: 50 mL/hr at 05/25/24 0200, 50 mL/hr at 05/25/24 0200 Insert peripheral IV, , , Once AND Saline lock IV, , , Once AND sodium chloride flush 10 mL, 10 mL, intravenous, q8h PRN, Cj Robles MD Objective: Patient Vitals for the past 24 hrs: BP Temp Temp src Pulse Resp SpO2 Weight 05/25/24 0400 (!) 97/38 36.3 ???C (97.4 ???F) -- 89 -- 96 % -- 05/25/24 0300 -- -- -- -- -- -- 110 kg (242 lb 9.6 oz) 05/25/24 0010 112/66 36.3 ???C (97.3 ???F) -- 93 15 -- -- 05/24/24 2210 (!) 94/42 -- -- 86 18 99 % -- 05/24/24 2142 (!) 84/47 -- -- 86 19 96 % -- 05/24/24 1930 106/71 36.2 ???C (97.2 ???F) Temporal 87 14 98 % -- 05/24/24 1848 106/55 -- -- 79 15 97 % -- 05/24/24 1830 105/56 -- -- 83 14 96 % -- 05/24/24 1816 106/66 -- -- 75 15 97 % -- 05/24/24 1800 109/58 -- -- 80 14 96 % -- 05/24/24 1745 110/58 -- -- 77 15 96 % -- 05/24/24 1730 106/63 -- -- 77 12 95 % -- 05/24/24 1715 104/61 -- -- 78 13 96 % -- 05/24/24 1708 99/69 -- -- 83 17 97 % -- 05/24/24 1700 (!) 94/49 -- -- 76 12 95 % -- 05/24/24 1645 100/57 -- -- 79 14 95 % -- 05/24/24 1634 103/52 36.1 ???C (97 ???F) Temporal 82 15 93 % -- 05/24/24 1613 128/69 -- -- 89 16 100 % -- 05/24/24 1545 -- -- -- -- -- 95 % -- 05/24/24 1543 133/81 -- -- 101 16 95 % -- 05/24/24 1220 110/64 35.8 ???C (96.5 ???F) Temporal 93 18 93 % -- 05/24/24 0734 100/64 36.2 ???C (97.2 ???F) Temporal 88 21 97 % -- Physical Examination: Physical Exam Constitutional: General: She is not in acute distress. Appearance: Normal appearance. She is not ill-appearing. HENT: Head: Normocephalic and atraumatic. Cardiovascular: Rate and Rhythm: Normal rate and regular rhythm. Heart sounds: Normal heart sounds. No murmur heard. Pulmonary: Breath sounds: Normal breath sounds. No wheezing or rales. Abdominal: Palpations: Abdomen is soft. Tenderness: There is no abdominal tenderness. Musculoskeletal: Rig (more content not included)...[facility]03-21-2025 NotePatient: Shahla Hopson Arias Procedure Information Date/Time: 05/24/24 1534 Procedure: Coronary angiography Location: [facility] 3 / [facility] (Cath) Providers: Silvestre Neumann MD Clinical information reviewed: Allergies Meds Problems Physical Exam Airway Mallampati: III Cardiovascular Rhythm: regular Rate: normal Dental Pulmonary Breath sounds clear to auscultation Abdominal Anesthesia Plan ASA 3 other (Moderate Sedation ) Anesthetic plan and risks discussed with patient. Use of blood products discussed with patient who consented to blood products. Additional Equipment RequestsUnJ.W. [facility] Note- Note that patient had abdominal pain after eating a compelled meal and Evan. -Must consider biliary dyskinesia and also acute pancreatitis being that patient has had acute pancreatitis in the past.[facility] 05-24-2024 Note-Patient has positive test however she states that she is not -Patient states that she has tubal ligation -Repeat quantitative beta-hCG DVT prophylaxis using VTE protocols per [facility] GI protection Protonix Monitor labs and correct any abnormalities especially monitor renal function Try to avoid nephrotoxic agents Consult include cardiology and nephrology I discussed the plan of care with the patient and she is in agreement with the plan of care.[facility]03-21-2025 Note-Gentle hydration with normal saline at rate of 50 mL/h -Avoid nephrotoxic agents -Care must be taken to preserve renal function before, during and after catheterization -Need to consult with nephrology.[facility]03-21-2025 Note-Weight loss by virtue of diet and exerciseUnJ.W. [facility]03-21-2025 Note-Pantoprazole orallyUnJ.W. [facility] 05-24-2024 Note-Proceed to catheterization however care must be taken because of patient's renal function. -May need to consult with nephrologyUnJ.W. [facility] 05-24-2024 Note-Patient's blood pressure is completely controlled this morning it was 100/65 -Will hold all antihypertensive medications for the momentUnJ.W. [facility]03-21-2025 Note-Patient is currently chest pain-free -Commence patient on IV heparinization -Aspirin -Obtain lipid panel -Consult cardiology -Has supplemental oxygen and nitrates ready to use if patient has chest discomfort.[facility]03-21-2025 NoteHospital Medicine History and Physical 05/24/2024 7:55 AM THE HOSPITALIST TEAM PREFERS TO USE [employer] CHAT FOR NON-URGENT COMMUNICATION 7AM-7PM. IF I DO NOT RESPOND WITHIN 20 MINUTES OR URGENT MATTERS, PLEASE CALL THROUGH THE WATERPROOFING SUPERVISOR. FROM 7PM-7AM, PLEASE PAGE [phone](COVR). Chief Complaint No chief complaint on file. History of Present Illness Shahla Arias is an 44 y.o. female who came on transferred from [facility] with NSTEMI, abnormal EKG and abnormal stress test and to have a heart cath today. 44-year-old lady whose past medical history significant for the following; hypertension, obesity, depression and anxiety, history of peripheral disease. Patient was transferred from [facility] to [facility] for further treatment. She presented to the ER at [facility] with abdominal pain, nausea and vomiting following a meal at [facility]. Pain also continued after she had a Evan. These symptoms began on 05/21/2024. At [facility] patient was investigated and was found to have abnormalities with BUN/creatinine as well as also with stress testing and abnormal EKGs. [facility] made contact with [place] cardiology and patient was transferred here for have catheterization today. When I saw her she was lying in bed woken up voiced no complaints. She denied any abdominal pain or chest pain, nausea or vomiting. Laboratory investigations that were done at [facility] showed a BUN of 29 and a creatinine of 2.24 glucose of 118 the rest of the panel was unremarkable. CBC was completely unremarkable. Troponins were elevated high-sensitivity troponins were 140, 136, 121 and 139. Beta-hCG was positive however patient said that she has her tubes tied. She has been started on IV heparin cardiology protocol and patient is going to undergo cardiac catheterization at some point today. Review of System and Physical Exam Temp: [36.4 ???C (97.6 ???F)] 36.4 ???C (97.6 ???F) Heart Rate: [88] 88 Resp: [15] 15 BP: (108)/(65) 108/65 Physical Exam Constitutional: Appearance: Normal appearance. She is obese. HENT: Head: Normocephalic and atraumatic. Nose: Nose normal. Mouth/Throat: Mouth: Mucous membranes are dry. Eyes: Extraocular Movements: Extraocular movements intact. Pupils: Pupils are equal, round, and reactive to light. Cardiovascular: Rate and Rhythm: Normal rate and regular rhythm. Heart sounds: No murmur heard. No gallop. Pulmonary: Effort: Pulmonary effort is normal. Breath sounds: Normal breath sounds. Abdominal: Palpations: There is no mass. Tenderness: There is no abdominal tenderness. There is no guarding or rebound. Musculoskeletal: General: Normal range of motion. Cervical back: Normal range of motion and neck supple. Skin: General: Skin is warm. Neurological: General: No focal deficit present. Mental Status: She is alert and oriented to person, place, and time. Mental status is at baseline. Psychiatric: Mood and Affect: Mood normal. Behavior: Behavior normal. Review of Systems Constitutional: Positive for fatigue. HENT: Negative. Eyes: Negative. Respiratory: Negative. Cardiovascular: Positive for chest pain and palpitations. Gastrointestinal: Positive for abdominal pain, nausea and vomiting. Endocrine: Negative. Genitourinary: Negative. Musculoskeletal: Negative. Skin: Negative. Allergic/Immunologic: Negative. Neurological: Negative. Hematological: Negative. Psychiatric/Behavioral: Negative. Assessment and Plan 44-year-old lady past medical history significant for hypertension, obesity anxiety and depression seen at [facility] diagnosed with NSTEMI and IAM. She is transferred here for for cardiac catheterization following abnormal stress test. Assessment & Plan NSTEMI (non-ST elevated myocardial infarction) ([facility]) -Patient is currently chest pain-free -Commence patient on IV heparinization -Aspirin -Obtain lipid panel -Consult cardiology -Has supplemental oxygen and nitrates ready to use if patient has chest discomfort. Abnormal stress test -Proceed to catheterization however care must be taken because of patient's renal function. -May need to consult with nephrology Gastroesophageal reflux disease without esophagitis -Pantoprazole orally Hypertension -Patient's blood pressure is completely controlled this morning it was 100/65 -Will hold all antihypertensive medications for the moment Obesity -Weight loss by virtue of diet and exercise IAM (acute kidney injury) -Gentle hydration with normal saline at rate of 50 mL/h -Avoid nephrotoxic agents -Care must be taken to preserve renal function before, during and after catheterization -Need to consult with nephrology. Positive test -Patient has positive test however she states that she is not -Patient states that she has tubal ligation -Repeat quantitative beta-hCG DVT prophylaxis using (more content not included)...[facility]01-26-2025 Evaluation note* Diagnosis Onset Date Resolution Status Admit Date RSV (respiratory syncytial virus infection) acute March 31, 11:18am Major depression acute June 8:59pm Suicidal ideation acute June 112024 8:59pm [facility] Work Phone: 1(932) 603-808601-26-2025 Evaluation note* Diagnosis Onset Date Resolution Status Admit Date RSV (respiratory syncytial virus infection) acute March 31 11:18am Depression with anxiety acute A pri2024 8:59pm Major depression acute June 8:59pm Suicidal ideation acute June 112024 8:59pm [facility] Work Phone: 1(432) 894-186401-26-2025 Evaluation note* Diagnosis Onset Date Resolution Status Admit Date RSV (respiratory syncytial virus infection) acute March 31 11:18am Major depression acute June 8:59pm Depression with anxiety resolved A pril 2024 8:59pm Suicidal ideation resolved June 112024 8:59pm [facility] Work Phone: 1(880) 141-739301-10-2025 NoteCardiology Clinic Note HPI: Shahla Arias is a 44 y.o. 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 She presents today for follow up. She was recently at [facility] for acute hypotension, IAM, and ECG changes, thought to be secondary to UTI. She was seen as inpatient consult by Dr. Rodriguez. Since discharge she has only been taking [...] reflux disease), Hypertension, PAD (peripheral artery disease) ([facility]), Palpitations, and Raynaud's disease. Surgical [...] - Transthoracic echo (TTE) complete; Future WPW (Gpjpv-Zjksyquyy-Veevp syndrome) - Treadmill Stress Myocardial Perfusion Imaging; [...] verbalizes understanding -Follow-up in cardiology clinic Benito rPado MD [facility] Cardiology [place] (more content not included)...[facility] 03-07-2024 History of Present illness Narrative* Stephanie Webster MD - 03/07/2024 10:30 AM EST Images from the original note were not included. To: JOSETTE MANDEL, CASTING AND 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 [employer] HPI: Shahla Arias is a 44 y.o. female with Claudication and blue discoloration of her toes. I started her on aspirin Plavix and statin and supervised walking program. I counseled on smoking cessation. Sheis working on smoking cessation she cut down significantly. She continues to smoke however. Her aspirin Plavix and statin has helped her discoloration a lot. There is some residual discoloration of the great toe. Her claudication improved significantly.. Review of Systems: Review of Systems Constitutional: Negative. HENT: Negative. Respiratory: Negative. Cardiovascular: Negative. Gastrointestinal: Negative. Endocrine: Negative. Genitourinary: Negative. Musculoskeletal: Negative. Skin: Negative. Neurological: Negative. Hematological: Negative. Medications: Current Outpatient Medications on File Prior to Visit Medication Sig Dispense Refill acetaminophen (TYLENOL) 500 mg tablet Take 1 tablet (500 mg total) by mouth every 6 (six) hours as needed for pain. 30 tablet 0 albuterol (PROVENTIL HFA;VENTOLIN HFA) 90 mcg/actuation inhaler Inhale 2 puffs every 6 (six) hours as needed for wheezing. amitriptyline (ELAVIL) 50 mg tablet Take 1 tablet (50 mg total) by mouth nightly. 75 mg aspirin 81 mg 1 tablet Orally Once a day 90 tablet 3 atorvastatin (LIPITOR) 40 mg tablet Take 1 tablet (40 mg total) by mouth in the morning. cholecalciferol, vitamin D3, 2,000 units tablet Take by mouth daily. clopidogreL (PLAVIX) 75 mg tablet Take 1 tablet (75 mg total) by mouth in the morning. 30 tablet 12 gabapentin (NEURONTIN) 400 mg capsule Take 1 capsule (400 mg total) by mouth 3 (three) times a day. olmesartan-hydroCHLOROthiazide (BENICAR HCT) 20-12.5 mg per tablet take 1 tablet by mouth once daily Oral for 90 days olmesartan-hydroCHLOROthiazide (BENICAR HCT) 20-12.5 mg per tablet Take 1 tablet by mouth in the morning. omeprazole (PriLOSEC) 40 mg capsule Take 1 capsule (40 mg total) by mouth in the morning. buPROPion XL (WELLBUTRIN XL) 150 mg 24 hr tablet Take 1 tablet (150 mg total) by mouth every morning. FeroSuL 325 mg (65 mg iron) tablet Take 1 tablet (325 mg total) by mouth 3 (three) times a week. ibuprofen (MOTRIN) 800 mg tablet Take 1 tablet (800 mg total) by mouth every 6 (six) hours as needed for pain. 30 tablet 0 levomilnacipran (FETZIMA) 80 mg capsule,extended release 24 hr Take 120 mg by mouth in the morning.(Patient not taking: Reported on 03/07/2024) mirtazapine (REMERON) 7.5 mg tablet 1 tablet at bedtime Orally for 30 days (Patient not taking: Reported on 03/07/2024) naltrexone (REVIA) 50 mg tablet Take 1 tablet (50 mg total) by mouth in the morning. OLANZapine (ZyPREXA) 10 mg tablet Take 1 tablet (10 mg total) by mouth as needed. (Patient not taking: Reported on 05/18/2023) olmesartan (BENICAR) 20 mg tablet Take 1 tablet (20 mg total) by mouth in the morning. (Patient nottaking: Reported on 05/18/2023) traZODone (DESYREL) 50 mg tablet Take 4 tablets (200 mg total) by mouth nightly. (Patient not taking: Reported on 03/07/2024) VivitroL 380 mg suspension,extended rel recon 1 injection Intramuscular once monthly for 30 days (Patient not taking: Reported on 03/07/2024) No current facility-administered medications on file prior to visit. Past Medical History: Past Medical History: Diagnosis Date Alcoholic ([facility]) Anxiety Arthritis Asthma Bipolar disorder ([facility]) Depression Fractures GERD (gastroesophageal reflux disease) HPV (human papilloma virus) infection Hyperlipidemia Hypertension Migraine Obesity Postoperative wound infection 05/22/2019 Past Surgical History: Past Surgical History: Procedure Laterality Date APPLICATION WOUND VAC N/A 05/22/2019 Performed by Boni Ogden MD at [facility] N/A 05/13/2019 Performed by Boni Ogden MD at [facility] OR Cardiac catheterization 07/02/2020 Performed by Va Coy MD at [facility] CARDIAC CATH LABS CARPAL TUNNEL RELEASE Bilateral CHOLECYSTECTOMY Coronary angiogram only N/A 07/02/2020 Performed by Va Coy MD at [facility] CARDIAC CATH LABS DEBRIDEMENT WOUND N/A 05/22/2019 Performed by Boni Ogden MD at [facility] LAPAROSCOPIC SALPINGECTOMY Bilateral 07/20/2022 Performed by Sabina Leung DO at [facility] LIVER BIOPSY Social and Family History: Social History Socioeconomic History Marital status: Spouse name: Not on file Number of children: Not on file Years of education: Not on file Highest education level: Not on file Occupational History Not on file Tobacco Use Smoking status: Every Day Current packs/day: 1.00 Average packs/day: 1 pack/day for 28.0 years (28.0 ttl pk-yrs) Types: Cigarettes Start date: 1996 Smokeless tobacco: Never Tobacco comments: using nicorette occasionally Vaping Use Vaping status: Former Substances: Nicotine, Flavoring Substance and Sexual Activity Alcohol use: Not Currently Comment: former abuser Drug use: Not Currently Types: Marijuana Comment: used marijuana years ago Sexual activity: Not Currently Partners: Male control/protection: None Other Topics Concern Caffeine Use Yes Social History Narrative Not on file Social Drivers of Health Financial Resource Strain: Low Risk (08/03/2021) Received from [facility] Overall Financial Resource Strain (CARDIA) Difficulty of Paying Living Expenses: Not hard at all Food Insecurity: No Food Insecurity (03/07/2024) Hunger Screening Food Insecurity - Worry: Never True Food Insecurity - Inability: Never True Transportation Needs: No Transportation Needs (08/03/2021) Received from [facility] PRAPARE - Transportation Lack of Transportation (Medical): No Lack of Transportation (Non-Medical): No Physical Activity: Inactive (05/31/2020) Exercise Vital Sign Days of Exercise per Week: 0 days Minutes of Exercise per Session: 0 min Stress: No Stress Concern Present (05/31/2020) [place] [place] [employer] - Occupational Stress Questionnaire Feeling of Stress : Not at all Social Connections: Socially Isolated (05/31/2020) Social Connection and Isolation Panel [NHANES] Frequency of Communication with Friends and Family: Never Frequency of Social Gatherings with Friends and Family: Never Attends Spiritism Services: Never Active Member of Clubs or Organizations: No Attends Club or Organization Meetings: Never Marital Status: Interpersonal Safety: Unknown (06/28/2023) Received from [facility] Safety & Environment Fear of Current or Ex-Partner: Not on file Emotionally Abused: Not on file Physically Abused: Not on file Sexually Abused: Not on file Physically or Sexually Abused: Not on file Housing Instability: Unknown (08/03/2021) Received from [facility] Housing Stability Vital Sign Unable to Pay for Housing in the Last Year: No Number of Places Lived in the Last Year: Not on file Unstable Housing in the Last Year: No Family History Problem Relation Age of Onset Stroke Mother Cancer Mother lung, bladder Hypertension Mother Pneumonia Maternal Grandmother Alcohol abuse Maternal Grandfather Breast cancer Neg Hx Uterine cancer Neg Hx Ovarian cancer Neg Hx Pancreatic cancer Neg Hx Prostate cancer Neg Hx Recent Labs: Recent and relative labs were reviewed and interpreted and contributed to the assessment and plan below. Vitals: BP 156/88 (BP Site: Left Arm, BP Postition: Sitting, BP CUFF SIZE: M (9-13 inches)) Pulse 61 Temp 36.1 C (97 F) (Temporal) Resp 20 Ht 167 cm (5' 5.75 ) Wt 111.1 kg (245 lb) LMP (LMP Unknown) SpO2 92% BMI 39.85 kg/m Body mass index is 39.85 kg/m . Physical Exam: Physical Exam Constitutional: Appearance: Normal appearance. HENT: Head: Normocephalic and atraumatic. Mouth/Throat: Mouth: Mucous membranes are moist. Eyes: Extraocular Movements: Extraocular movements intact. Pupils: Pupils are equal, round, and reactive to light. Cardiovascular: Rate and Rhythm: Normal rate and regular rhythm. Pulmonary: Effort: Pulmonary effort is normal. Breath sounds: Normal breath sounds. Abdominal: General: Abdomen is flat. Bowel sounds are normal. Palpations: Abdomen is soft. Musculoskeletal: General: Normal range of motion. Cervical back: Normal range of motion. Skin: General: Skin is warm and dry. Neurological: General: No focal deficit present. Mental Status: She is alert and oriented to person, place, and time. Mental status is at baseline. Psychiatric: Mood and Affect: Mood normal. Behavior: Behavior normal. Thought Content: Thought content normal. Judgment: Judgment normal. 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 Smoking cessation. Continue walking. Shahla was seen today for 3 month f/u no testing severe claudication . Diagnoses and all orders for this visit: Cigarette smoker motivated to quit Severe claudication (CMS-HCC) 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) Stephanie Webster MD, EMA, RPVI, FSVS, FACS [facility] [employer] [facility] This note was created with the assistance of a speech recognition program. While intending to generate a timely document that accurately reflects the content of the visit, no guarantee can be provided that every grammatical or spelling mistake has been or will be identified or corrected. Thank you for your understanding. documented in this encounterProMedica Toledo HospitalArdica Technologies [facility] Receiving [id number] Instructions* Patient Instructions* Stephanie Webster MD - 03/07/2024 10:30 AM EST Are You Ready To Kick The Habit? Free Tobacco Cessation Resources [facility] Services [facility] provide all employees with free tobacco cessation services that include: Counseling to understand nicotine addiction Education about medications that can help you successfully quit Assistance with developing a plan to quit Call to set up an individual appointment or find out when group classes will be held: [facility]: [phone] [facility]: [phone] [facility]: [phone] [facility]: [phone] Quit Smoking Action Plan and Resources [facility] offers an eight-week, online smoking cessation plan to all [facility] employees, regardless of whether [employer] is your medical insurance provider. Go to [email or web address] and click the Health Risk Assessment and Resources link to get started. In the Fnwps1Tslnuf menu, click Action Plans instead of Health Risk Assessment to access the Quit Smoking Action Plan. Additional smoking cessation resources are also available to all [facility] employees on the [employer] web page at [email or web address]. [employer] Tobacco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 capsule Take 1 capsule (40 mg total) by mouth in the morning. traZODone (DESYREL) 50 mg tablet Take 4 tablets (200 mg total) by mouth nightly. VivitroL 380 mg suspension,extended rel recon 1 injection Intramuscular once monthly for 30 days No current facility-administered medications on file prior to visit. Past Medical History: Past Medical History: Diagnosis Date Alcoholic ([facility]) Anxiety Arthritis Asthma Bipolar disorder ([facility]) Depression Fractures GERD (gastroesophageal reflux disease) HPV (human papilloma virus) infection Hyperlipidemia Hypertension Migraine Obesity Postoperative wound infection 05/22/2019 Past Surgical History: Past Surgical History: Procedure Laterality Date APPLICATION WOUND VAC N/A 05/22/2019 Performed by Boni Ogden MD at [facility] N/A 05/13/2019 Performed by Boni Ogden MD at [facility] OR Cardiac catheterization 07/02/2020 Performed by Va Coy MD at [facility] CARDIAC CATH LABS CARPAL TUNNEL RELEASE Bilateral CHOLECYSTECTOMY Coronary angiogram only N/A 07/02/2020 Performed by Va Coy MD at [facility] CARDIAC CATH LABS DEBRIDEMENT WOUND N/A 05/22/2019 Performed by Boni Ogden MD at [facility] LAPAROSCOPIC SALPINGECTOMY Bilateral 07/20/2022 Performed by Sabina Leung DO at [facility] LIVER BIOPSY Social and Family History: Social History Socioeconomic History Marital status: Spouse name: Not on file Number of children: Not on file Years of education: Not on file Highest education level: Not on file Occupational History Not on file Tobacco Use Smoking status: Every Day Current packs/day: 1.00 Average packs/day: 1 pack/day for 27.5 years (27.5 ttl pk-yrs) Types: Cigarettes Start date: 1996 Smokeless tobacco: Never Tobacco comments: using nicorette occasionally Vaping Use Vaping status: Former Substances: Nicotine, Flavoring Substance and Sexual Activity Alcohol use: Not Currently Comment: former abuser Drug use: Not Currently Types: Marijuana Comment: used marijuana years ago Sexual activity: Not Currently Partners: Male control/protection: None Other Topics Concern Caffeine Use Yes Social History Narrative Not on file Social Determinants of Health Financial Resource Strain: Low Risk (08/03/2021) Received from [facility] Overall Financial Resource Strain (CARDIA) Difficulty of Paying Living Expenses: Not hard at all Food Insecurity: No Food Insecurity (08/31/2023) Hunger Screening Food Insecurity - Worry: Never True Food Insecurity - Inability: Never True Transportation Needs: No Transportation Needs (08/03/2021) Received from [facility] PRAPARE - Transportation Lack of Transportation (Medical): No Lack of Transportation (Non-Medical): No Physical Activity: Inactive (05/31/2020) Exercise Vital Sign Days of Exercise per Week: 0 days Minutes of Exercise per Session: 0 min Stress: No Stress Concern Present (05/31/2020) [employer] [place] [employer] - Occupational Stress Questionnaire Feeling of Stress : Not at all Social Connections: Socially Isolated (05/31/2020) Social Connection and Isolation Panel [NHANES] Frequency of Communication with Friends and Family: Never Frequency of Social Gatherings with Friends and Family: Never Attends Spiritism Services: Never Active Member of Clubs or Organizations: No Attends Club or Organization Meetings: Never Marital Status: Interpersonal Safety: Unknown (06/28/2023) Received from [facility] Safety & Environment Fear of Current or Ex-Partner: Not on file Emotionally Abused: Not on file Physically Abused: Not on file Sexually Abused: Not on file Physically or Sexually Abused: Not on file Housing Instability: Unknown (08/03/2021) Received from [facility] Housing Stability Vital Sign Unable to Pay for Housing in the Last Year: No Number of Places Lived in the Last Year: Not on file Unstable Housing in the Last Year: No Family History Problem Relation Age of Onset Stroke Mother Cancer Mother lung, bladder Hypertension Mother Pneumonia Maternal Grandmother Alcohol abuse Maternal Grandfather Breast cancer Neg Hx Uterine cancer Neg Hx Ovarian cancer Neg Hx Pancreatic cancer Neg Hx Prostate cancer Neg Hx Recent Labs: Recent and relative labs were reviewed and interpreted and contributed to the assessment and plan below. Vitals: BP 106/66 (BP Site: Right Arm, BP Postition: Sitting, BP CUFF SIZE: M (9-13 inches)) Pulse 111 Ht 167.6 cm (5' 6 ) Wt 103.9 kg (229 lb) LMP (LMP Unknown) BMI 36.96 kg/m Body mass index is 36.96 kg/m . Physical Exam: Physical Exam Constitutional: Appearance: Normal appearance. HENT: Head: Normocephalic and atraumatic. Mouth/Throat: Mouth: Mucous membranes are moist. Eyes: Extraocular Movements: Extraocular movements intact. Pupils: Pupils are equal, round, and reactive to light. Cardiovascular: Rate and Rhythm: Normal rate and regular rhythm. Pulmonary: Effort: Pulmonary effort is normal. Breath sounds: Normal breath sounds. Abdominal: General: Abdomen is flat. Bowel sounds are normal. Palpations: Abdomen is soft. Musculoskeletal: General: Normal range of motion. Cervical back: Normal range of motion. Skin: General: Skin is warm and dry. Neurological: General: No focal deficit present. Mental Status: She is alert and oriented to person, place, and time. Mental status is at baseline. Psychiatric: Mood and Affect: Mood normal. Behavior: Behavior normal. Thought Content: Thought content normal. Judgment: Judgment normal. Recent testing: PVR Assessment and Plan: Problem List Cigarette smoker motivated to quit Overview quit Current Assessment & Plan Counseled on smoking cessation at least 4 minutes. Severe claudication (CMS-HCC) - Primary Current Assessment & Plan Aspirin Plavix and statin Supervised walking program Smoking cessation Follow-up and 3 months. Shahla was seen today for pvd. Diagnoses and all orders for this visit: Severe claudication (CMS-HCC) Cigarette smoker motivated to quit Stephanie Webster MD, EMA, RPVI, FSVS, FACS [facility] [employer] [facility] This note was created with the assistance of a speech recognition program. While intending to generate a timely document that accurately reflects the content of the visit, no guarantee can be provided that every grammatical or spelling mistake has been or will be identified or corrected. Thank you for your understanding. documented in this encounterProMedica Toledo HospitalNoovo [id number] Instructions* Patient Instructions* Setphanie Webster MD - 08/31/2023 9:00 AM EDT Are You Ready To Kick The Habit? Free Tobacco Cessation Resources [facility] Tobacco Treatment [facility] Services [facility] Tobacco Treatment Centers provide all employees with free tobacco cessation services that include: Counseling to understand nicotine addiction Education about medications that can help you successfully quit Assistance with developing a plan to quit Call to set up an individual appointment or find out when group classes will be held: [facility]: [phone] [facility]: [phone] [facility]: [phone] [facility]: [phone] Quit Smoking Action Plan and Resources [facility] offers an eight-week, online smoking cessation plan to all [facility] employees, regardless of whether [employer] is your medical insurance provider. Go to [email or web address] and click the Health Risk Assessment and Resources link to get started. In the allyve menu, click Action Plans instead of Health Risk Assessment to access the Quit Smoking Action Plan. Additional smoking cessation resources are also available to all [facility] employees on the Fzivd1Crpfyw web page at www.[employer]/quitsmoking. [place] Tobacco Cessation Program If [employer] is your medical insurance provider, there are more free resources available to you, including: No copays or deductibles on local tobacco cessation counseling services to help you quit Prescription assistance for tobacco cessation medications to help you quit For details about the tobacco cessation program available to [employer] members, go to www.[employer] (Search: Tobacco Cessation Program). [place] Tobacco Quit Line 4-385-YBHP-NOW ( ) is a toll-free, telephonic service that helps [place] residents quit smoking and using tobacco. It is staffed by experts who tailor a quit plan for you and provide you with advice. [place] Tobacco Quit Line 6-750-UMUI-NOW ( ) is a toll-free, telephonic service that helps [place] residents quit smoking and using tobacco. It is staffed by experts who tailor a quit plan for you and provide you with advice. Two weeks of nicotine replacement therapy may be provided at no charge, if needed. Additional Resources These national organizations also offer free information and resources to help you quit tobacco: [place] [employer]--www.cancer.org/healthy/stayawayfromtobacco [place] [employer]--www.heart.org (Search: Quit Smoking) Centers for Disease Control and Prevention--www.cdc.gov/tobacco [place] [employer] Association--www.lungusa.org documented in this encounterSt Johnsbury HospitalDebtLESS Community [id number] Hospital Discharge instructions Additional Instructions Try your other anxiety medication first For continued anxiety despite your other medication you may take 1 lorazepam every 6-8 hours Follow-up as scheduled with the counseling center I also gave you the hope number to call if needed Return to the ER for thoughts of hurting yourself or others severe anxiety or any other concerns[facility] Work Phone: [phone] History of Present illness Narrative* Halina Lizarraga APRN-GERONIMO - 07/03/2023 10:30 AM EDT Shahla Arias is a 43 y.o. 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 She is postmenopausal. Hysterectomy: no If yes, age and reason:n/a Declines STI testing. She is not currently exercising d/tholter monitor in place. Pt. Is seeing counselor/psychiatrist and affirms symptoms are stable. She is sexually active. Yes painful intercourse or pelvic pain. Employment: unemployed Vaginal Bleeding none Hot flashes / menopausal symptoms - Mild Bladder issues - yes Bowel issues - yes History of abnormal Pap smear: yes - 10/23/18 Last pap: 06/22/22 Family history of uterine or ovarian cancer: no Family hx pancreatic or prostate cancer: no Family history of colon cancer: no Family history of breast cancer: no Regular self breast exam: yes Last mammogram: 06/24/22 Dexa Scan: no Colonoscopy / Cologuard: 2 years ago PHQ9 depression screenin w/negative self harm component LMP: a year ago. OB History 2 Para 2 Term 2 0 AB 0 Living 2 SAB 0 IAB 0 Ectopic 0 Multiple 0 Live Births 2 Past Medical History: Diagnosis Date Alcoholic (CMS-HCC) Anxiety Arthritis Asthma Bipolar disorder (CMS-HCC) Depression Fractures GERD (gastroesophageal reflux disease) HPV (human papilloma virus) infection Hyperlipidemia Hypertension Migraine Obesity Postoperative wound infection 05/22/2019 Past Surgical History: Procedure Laterality Date APPLICATION WOUND VAC N/A 05/22/2019 Performed by [facility] N/A 05/13/2019 Performed by [facility]i [facility] MD at [facility] LD OR Cardiac catheterization 07/02/2020 Performed by Va Coy MD at [facility] CARDIAC CATH LABS CARPAL TUNNEL RELEASE Bilateral CHOLECYSTECTOMY Coronary angiogram only N/A 07/02/2020 Performed by Va Coy MD at [facility] CARDIAC CATH LABS DEBRIDEMENT WOUND N/A 05/22/2019 Performed by Boni Ogden MD at [facility] LAPAROSCOPIC SALPINGECTOMY Bilateral 07/20/2022 Performed by Sabina Leung DO at [facility] LIVER BIOPSY Family History Problem Relation Age of Onset Stroke Mother Cancer Mother lung, bladder Hypertension Mother Pneumonia Maternal Grandmother Alcohol abuse Maternal Grandfather Breast cancer Neg Hx Current Outpatient Medications Medication Sig Dispense Refill acetaminophen (TYLENOL) 500 mg tablet Take 1 tablet (500 mg total) by mouth every 6 (six) hours as needed for pain. 30 tablet 0 albuterol (PROVENTIL HFA;VENTOLIN HFA) 90 mcg/actuation inhaler Inhale 2 puffs every 6 (six) hours as needed for wheezing. aspirin 81 mg 1 tablet Orally Once a day 90 tablet 3 atorvastatin (LIPITOR) 40 mg tablet Take 1 tablet (40 mg total) by mouth in the morning. cholecalciferol, vitamin D3, 2,000 units tablet Take by mouth daily. clopidogreL (PLAVIX) 75 mg tablet Take 1 tablet (75 mg total) by mouth in the morning. 30 tablet 12 gabapentin (NEURONTIN) 400 mg capsule Take 1 capsule (400 mg total) by mouth 3 (three) times a day. levomilnacipran (FETZIMA) 80 mg capsule,extended release 24 hr Take 120 mg by mouth in the morning. mirtazapine (REMERON) 7.5 mg tablet 1 tablet at bedtime Orally for 30 days olmesartan-hydroCHLOROthiazide (BENICAR HCT) 20-12.5 mg per tablet take 1 tablet by mouth once daily Oral for 90 days omeprazole (PriLOSEC) 40 mg capsule Take 1 capsule (40 mg total) by mouth in the morning. traZODone (DESYREL) 50 mg tablet Take 4 tablets (200 mg total) by mouth nightly. VivitroL 380 mg suspension,extended rel recon 1 injection Intramuscular once monthly for 30 days ibuprofen (MOTRIN) 800 mg tablet Take 1 tablet (800 mg total) by mouth every 6 (six) hours as needed for pain. 30 tablet 0 naltrexone (REVIA) 50 mg tablet Take 1 tablet (50 mg total) by mouth in the morning. OLANZapine (ZyPREXA) 10 mg tablet Take 1 tablet (10 mg total) by mouth as needed. (Patient not taking: Reported on 05/18/2023) olmesartan (BENICAR) 20 mg tablet Take 1 tablet (20 mg total) by mouth in the morning. (Patient nottaking: Reported on 05/18/2023) No current facility-administered medications for this visit. ALLERGIES Allergies Allergen Reactions Ciprofibrate Facial Swelling Penicillin G Facial Swelling Ciprofloxacin Flagyl [Metronidazole] Other (See Comments) Flu like s/s Review of Systems Constitutional: Negative for chills and fever. HENT: Negative for ear pain, sinus pain and sore throat. Eyes: Negative for pain. Respiratory: Positive for cough and shortness of breath. Pt. Attributes to asthma and smoking. Cardiovascular: Positive for palpitations. Negative for chest pain. Has most days and is currently wearing a holter monitor for 30 days Gastrointestinal: Positive for constipation. Negative for abdominal pain, diarrhea, nausea and vomiting. Genitourinary: Positive for dyspareunia. Negative for dysuria, pelvic pain, vaginal bleeding and vaginal discharge. Dyspareunia r/t dryness per pt. She does not use lubrication. Skin: Negative for rash and wound. Psychiatric/Behavioral: Positive for dysphoric mood. Negative for self-injury. The patient is nervous/anxious. Anxiety and depression are stable and pt. Is seeing a psychiatrist and a counselor PHQ-9 :10 w/negative self harm Physical Exam Wt 104.6 kg (230 lb 9.6 oz) LMP (LMP Unknown) BMI 37.22 kg/m Physical Exam Constitutional: General: She is not in acute distress. Appearance: She is obese. She is not ill-appearing, toxic-appearing or diaphoretic. HENT: Head: Normocephalic and atraumatic. Eyes: General: No scleral icterus. Conjunctiva/sclera: Conjunctivae normal. Neck: Thyroid: Thyroid tenderness present. No thyroid mass or thyromegaly. Trachea: Trachea normal. Comments: Slightly tender w/swallowing Cardiovascular: Rate and Rhythm: Normal rate and regular rhythm. Heart sounds: Normal heart sounds. Pulmonary: Effort: Pulmonary effort is normal. Breath sounds: Normal breath sounds. Chest: Chest wall: No mass, lacerations, deformity, swelling or tenderness. Breasts: Breasts are symmetrical. Right: Tenderness present. No swelling, bleeding, inverted nipple, mass, nipple discharge or skin change. Left: Tenderness present. No swelling, bleeding, inverted nipple, mass, nipple discharge or skin change. Comments: Slight tenderness on palpation Abdominal: General: There is no distension. Palpations: Abdomen is soft. There is no mass. Tenderness: There is no abdominal tenderness. There is no guarding or rebound. Hernia: No hernia is present. Genitourinary: General: Normal vulva. Exam position: Lithotomy position. Pubic Area: No rash or pubic lice. Labia: Right: No rash, tenderness, lesion or injury. Left: No rash, tenderness, lesion or injury. Urethra: No prolapse, urethral pain, urethral swelling or urethral lesion. Vagina: No signs of injury and foreign body. No vaginal discharge, tenderness, bleeding, lesions orprolapsed vaginal keating. Cervix: Normal. Uterus: Normal. Adnexa: Right: No tenderness. Left: No tenderness. Rectum: No external hemorrhoid. Comments: Age appropriate vaginal atrophy noted, no lesion Bimanual exam inhibited by bodily habitus Musculoskeletal: Cervical back: Neck supple. No rigidity or tenderness. Lymphadenopathy: Cervical: No cervical adenopathy. Upper Body: Right upper body: No axillary adenopathy. Left upper body: No axillary adenopathy. Skin: General: Skin is warm and dry. Neurological: General: No focal deficit present. Mental Status: She is alert. Psychiatric: Behavior: Behavior normal. Thought Content: Thought content normal. Judgment: Judgment normal. Comments: Slightly flat affect Assessment / Plan Shahla was seen today for annual exam. Diagnoses and all orders for this visit: Well woman exam with routine gynecological exam Encounter for screening mammogram for malignant neoplasm of breast - Mammography screening bilateral with CAD; Future Next pap due 2027. Discussed ASCCP screening guidelines. BMI is above average; Discussed eating tips for weight loss and and exercise steps. Discussed SBE. Discussed availability of Gardasil at local pharmacy and recommendation through age 43 Discussed taking a multivitamin. Discussed Calcium and Vitamin D for prevention of osteoporosis. Discussed need for yearly mammogram after 40 yo. Order placed. Patient to discuss colon cancer screening recommendations with PCP. Educational material provided. All questions answered. Discussed use of lubrication w/intercourse. 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 YENNY Heard 07/03/23 1132 YENNY Heard 07/03/23 1402 documented in this encounterProMedica Toledo HospitalArdica Technologies [facility] [id number] History of Present illness Narrative* Stephanie Webster MD - 05/18/2023 3:30 PM EDT Images from the original note were not included. [facility] [address] [id number] Subjective: Patient ID: Shahla Arias is a 43 y.o. female. 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 She had duplex US and CTA of the abdomen and pelviswith runoff at the ED. I personal reviewed [...] total) by mouth every 6 (six) hours asneeded for pain., Disp: 30 tablet, Rfl: 0 albuterol (PROVENTIL HFA;VENTOLIN HFA) 90 mcg/actuation inhaler, Inhale 2 puffs every 6 (six) hoursas needed for wheezing., Disp: , Rfl: gabapentin [...] total) by mouth in the morning., Disp: ,Rfl: traZODone (DESYREL) 50 mg tablet, Take 4 [...] Rfl: Past Medical History: Diagnosis Date Alcoholic ([facility]-HCC) Anxiety Arthritis Asthma Bipolar disorder ([facility]) Depression Fractures GERD (gastroesophageal reflux disease) HPV (human papilloma virus) infection Hyperlipidemia Hypertension Migraine Obesity Postoperative wound infection 05/22/2019 Past Surgical History: Procedure Laterality Date APPLICATION WOUND VAC N/A 05/22/2019 Performed by Boni [facility] at [facility] N/A 05/13/2019 Performed by Boni Ogden MD at [facility] OR Cardiac catheterization 07/02/2020 Performed by Va Coy MD at [facility] CARDIAC CATH LABS CARPAL TUNNEL RELEASE Bilateral CHOLECYSTECTOMY Coronary angiogram only N/A 07/02/2020 Performed by Va Coy MD at [facility] CARDIAC CATH LABS DEBRIDEMENT WOUND N/A 05/22/2019 Performed by Boni Ogden MD at [facility] LAPAROSCOPIC SALPINGECTOMY Bilateral 07/20/2022 Performed by Sabina Leung DO at [facility] LIVER BIOPSY Family History Problem Relation Age [...] min Stress: No Stress Concern Present (05/31/2020) [employer] [place] [employer] - Occupational Stress Questionnaire Feeling of Stress : Not at all Social Connections: Socially Isolated (05/31/2020) Social Connection and Isolation Panel [NHANES] Frequency of Communication with Friends and Family: Never Frequency of Social Gatherings with Friends and Family: Never Attends Spiritism Services: Never Active Member of Clubs or [...] past medical history, past social history, past surgicalhistory and problem list. Review of Systems: Review of Systems Constitutional: Negative. HENT: Negative. Respiratory: Negative. Cardiovascular: Negative. Gastrointestinal: Negative. Endocrine: Negative. Genitourinary: Negative. Musculoskeletal: Negative. Skin: Negative. Neurological: Negative. Hematological: Negative. All other systems reviewed and are negative. Objective: Vitals BP 130/70 (BP Site: Right Arm, BP Postition: Sitting, BP CUFF SIZE: L (13-17 inches)) Ht 167.6 cm(5' 6 ) Wt 100.2 kg (221 lb) [...] EMA Stephanie Webster MD documented in this encounterMemorial [facility] Evaluation note* Encounter Date Diagnosis Assessment [...] understanding and is agreeable with treatment plan [facility] Other 12-22-2023 Evaluation note* Encounter Date Diagnosis [...] (ICD-10 - F17.218) Smoking cessation strongly encouraged. [facility] Other 10-17-2023 Evaluation note* Encounter Date Diagnosis [...] understanding and is agreeable to treatment plan [facility] Other 09-19-2023 Evaluation note* Encounter Date Diagnosis [...] She may need to consider seeing a heel seat sander and discussing alternative medication options with her [...] (ICD-10 - F17.218) Smoking cessation strongly encouraged. [facility] Other 09-11-2023 Evaluation note* Encounter Date Diagnosis Assessment Notes Treatment Notes Treatment Clinical Notes Nov, Essential hypertension (ICD-10 - I10) [facility] Other 06-21-2023 Evaluation note* Encounter Date Diagnosis [...] (ICD-10 - F17.218) Smoking cessation strongly encouraged. [facility] Other 03-21-2023 Evaluation note* Encounter Date Diagnosis Assessment Notes Treatment Notes Treatment Clinical Notes May, Vitamin D deficiency (ICD-10 - E55.9) [facility] Other 03-15-2023 Evaluation note* Encounter Date Diagnosis [...] (ICD-10 - F17.218) Smoking cessation strongly encouraged. [facility] Other 03-11-2023 Progress note Author Geo Loomis [facility] May 14, 2022 11:17am Note Date/Time May 14, 2022 11: 17am [facility] [address] [place] [address] Psychiatry Progress Note Signed Patient: Shahla Ruelas MR#: [id number] : 1980 Acct:[id number] Age/Sex: 42 / F Adm Date: 3 Loc: Room: [address] [place] [address] Type : ADM IN Attending Dr: Geo [...] signed by Geo Loomis MD> 05/14/22 1117 [facility] Work Phone: 1(678) 298-236703-10-2023 Progress note Author Geo Loomis [facility] May 13, 2022 12:04pm Note Date/Time May 13, 2022 10: 47am [facility] [address] [place] [address] Psychiatry Progress Note Signed Patient: Shahla Ruelas MR#: [id number] : 1980 Acct:[id number] Age/Sex: 42 / F Adm Date: 3 Loc: Room: [address] [place] [address] Type : ADM IN Attending Dr: Geo [...] signed by Geo Loomis MD> 05/13/22 1204 [facility] Work Phone: 1(400) 897-541903-09-2023 Progress note Author Geo Loomis [facility] May 12, 2022 2:13pm Note Date/Time May 12, 2022 9:57 am [facility] [address] [place] [address] Psychiatry Progress Note Signed Patient: Shahla Ruelas MR#: [id number] : 1980 Acct:[id number] Age/Sex: 42 / F Adm Date: 3 Loc: Room: [address] [place] [address] Type : ADM IN Attending Dr: Geo [...] out of 10. Patient claims she feels office rn with a burden lifted. Patient claims that [...] alternatives explained Documented By: Geo Loomis MD 05/12/2283 Signed By: <Electronically signed by Geo Loomis MD> 05/12/22 7634 [facility] Work Phone: [phone]) 258-786903-08-2023 History and physical note Author Geo Loomis [facility] May 11, 2022 10:39am Note Date/Time May 11, 2022 10:3 9am [facility] [address] [place] [address] Psychiatry H&P Signed Patient: Shahla Ruelas MR#: [id number] : 1980 Acct:[id number] Age/Sex: 42 / F Adm Date: 3 Loc: 1S Room: 7X3744-4 Type: ADM IN Attending Dr: Geo Loomis MD Copies to: eGo Loomis MD Tamara Hopson Mic[place]ton, DO~ Date of Service: 05/11/2022 HPI History [...] Cloudy A Urine pH 6.0 Ur Specific [place] 1.028 Urine Protein 30 H Urine Glucose [...] signed by Geo Loomis MD> 05/11/22 1039 [facility] Work Phone: 1(451) 975-138701-10-2023 Evaluation note* Encounter Date Diagnosis Assessment Notes [...] treatment. Call at any time with questions/concerns. [facility] Other 12-12-2022 History of Present illness Narrative* Dennis Dunn MD - 02/14/2022 12:03 PM EST This encounter was opened in error. Patient was a No-Show. Please disregard. Called, directly to busy signal. Dennis Sarmiento MD documented in this [id number] Evaluation note* Encounter Date Diagnosis Assessment Notes Treatment Notes Treatment Clinical Notes Nov, Mild intermittent asthma without complication (ICD-10 - J45.20) [facility] Other 06-30-2022 History of Present illness Narrative* [...] and Staging Information: SPECIMEN FOR SURGICAL PATH: [id number] Order: [id number] Collected 07/30/2021 15:54 Status: Final result Visible to patient: Yes (not seen) Dx: Liver cyst; Cyst of gallbladder 0 Result Notes Component Case Report Surgical Pathology Report Case: [id number] Authorizing Provider: Dennis Sarmiento MD Collected: 07/30/2021 1554 Ordering Location: [facility] Main OR Received: 08/03/2021 1030 Pathologist: [...] identified lymph nodes or masses grossly. Sections: Parts Person A1. Fibrotic tissue (X) B. Requisitioned as [...] of tumor, it is inked green. Sections: Parts Person B1. Cystic lesion, fibrotic area (X) B2-B6. [...] Kortney Ivey M.D Clinical Information Resulting Agency [facility] [place] Collected: 07/30/21 15:54 Last Resulted: 08/05/21 08:46 Order Details View Encounter Lab and Collection Details Routing Result History Scans on Order [id number] Document on 08/05/2021 8:46 AM by Marc Ricketts, Treatment Recommendations and NCCN: Plan no surgical intervention needed at this time. Follow up in 02/[address] Sarmiento The above recommendations were based on NCCN guidelines, as well as consideration of current national standards and review of the literature. Nicole Garcia RN documented in this [id number] [facility] - History [...] 4 mg/0.1 mL nasal liquid Use 1 Points in one nostril (alternate sides) as needed [...] ??? T Prot (more content not included)...[employer] [id number] Evaluation note* Encounter Date Diagnosis Assessment Notes [...] I see her back in 6 months. [facility] Other 06-13-2022 History of Present illness Narrative* Dennis Dunn MD - 08/16/2021 1:09 PM EDT Phone numbers Preferred Documentation: Mode: Telephone Patient Patient Work Phone: Patient Cell Preferred phone: [phone] Consent: I confirmed patient understanding of the risks and benefits of telehealth visits and obtained consent to proceed with the telehealth visit. Location of Patient: Home of patient Surgery Follow Up Feeling well since surgery. Still hurting but she is starting to feel better. [facility] week for staple removal. SPECIMEN FOR SURGICAL PATH: [id number] Order: [id number] Collected 07/30/2021 15:54 Status: Final result Visible to patient: Yes (not seen) Dx: Liver cyst; Cyst of gallbladder 0 Result Notes Component Case Report Surgical Pathology Report Case: [id number] Authorizing Provider: Dennis Sarmiento MD Collected: 07/30/2021 1554 Ordering Location: [facility] Main OR Received: 08/03/2021 1030 Pathologist: [...] identified lymph nodes or masses grossly. Sections: Parts Person A1. Fibrotic tissue (X) B. Requisitioned as [...] of tumor, it is inked green. Sections: Parts Person B1. Cystic lesion, fibrotic area (X) B2-B6. 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 Follow up in 6 months with a televisit in person if needed. Dennis Sarmiento MD, FACS documented in this [id number] History of Present illness Narrative* Josephine Osborn [...] 4 mg/0.1 mL nasal liquid Use 1 Points in one nostril (alternate sides) as needed [...] 106 25 11 85 4 0.66 8.4 08/01/217 135 4.5 105 24 11 101 6 [...] less than 10cc serous fluid in bulb. Keiser in place, incision healing Lymphatic: No cervical [...] Risk protocol implemented: No documented in this [id number] Hospital Discharge instructions* Discharge Instructions* Meenakshi Weeks PA-C - 08/04/2021 8:31 AM EDT GENERAL SURGERY DISCHARGE INSTRUCTIONS C O N F I D E N T I A L I N F O R M A T I O N Shahla Ruelas [id number] The following is a brief overview of [...] Other SIGNED: Registered Nurse documented in this [id number] History of Present illness Narrative* Meenakshi Weeks [...] vital signs. Holding home losartan. Pulm: Resp loan broker protocol, Encourage IS x10/hr, OOB and ambulation GI: Continue GI soft diet. Cont nexium daily, carafate. /FEN: HLIV Endocrine: no hx of glyemic issues ID: No abx indicated Proph: lovenox daily and SCDs Dispo: DC to home today Patient was seen with chief resident, Dr. Osborn and d/w Attending Surgeon Dr. Sarmiento. --- Meenakshi Weeks PA-C General Surgery [facility] * Varsha Solis RN - 08/03/2021 11:51 [...] discharge planning needs as warranted. MILAN Ferrell, director telecommunications * Nicole Bello PA-C - 08/03/2021 7:19 [...] 7.8 2.87 8.0 24.0 84 15.5 186 05/29/22 0841 29 08/01/21 0841 1.13 08/01/216 7.6 2.66 7.6 22.3 84 15.6 [...] vital signs. Holding home losartan. Pulm: Resp loan broker protocol, Encourage IS x10/hr, OOB and ambulation [...] Bello PA-C General Surgery PGY3 Blue Pager: [phone] * Tamara Jurado MD - 08/02/2021 8:53 AM EDT Images from the original note were not included. BLUE SURGERY PROGRESS NOTE Interval history/Events: No acute events overnight Pain adequately controlled with CORPORATE STRATEGY INTERN Tolerating clear liquid Using IS Drain output [...] vital signs. Holding home losartan. Pulm: Resp loan broker protocol, Encourage IS x10/hr, OOB and ambulation GI: FLD. Cont nexium daily, carafate. /FEN: cont LR at 75/hr. TOV today. Endocrine: no hx of glyemic issues ID: No abx indicated Proph: lovenox daily and SCDs Dispo: Continue on RNF Patient d/w Attending Surgeon Dr. Sarmiento --- Tamara Jurado MD General Surgery PGY3 Blue Pager: [phone] * Madeleine Hooks MD - 08/01/2021 8:06 AM EDT Images from the original note were not included. BLUE SURGERY PROGRESS NOTE Interval history/Events: No acute events overnight Pain adequately controlled with CORPORATE STRATEGY INTERN Mild nausea but improved Tolerating clear liquid [...] 07/31/21 0043 9.9 30.6 07/30/212009 9.5 29.5 07/30/211737 12.2 37.4 07/30/211646 11.9 36.6 WBC/Diff None Basic Metabolic Panel Na K Cl CO2 Gap Glu BUN Cr Ca Mg PO4 08/01/21 000 1.9 08/01/21 000 135 4.5 105 24 11 101 6 0.63 8.1 07/31/218 1.5 07/31/21247 135 4.6 106 22 12 129 10 0.85 8.9 07/31/213 138 07/30/212009 138 07/30/211737 135 07/30/21 164 137 Hepatic/Biliary/Pancreas T Prot Albumin D Bili [...] PRN .NO ORAL PAIN MEDS WHILE ON CORPORATE STRATEGY INTERN/EPIDURAL 1 Each PRN naloxone 0.4 mg PRN [...] 08/01/2021. Plan: Neuro/Pain: scheduled tylenol, robaxin. Dilaudid CORPORATE STRATEGY INTERN. Cont home trazodone and fluoxetine CV: Monitor vital signs Pulm: Resp loan broker protocol, Encourage IS x10/hr, OOB and ambulation GI: NPO for possible PTHC today. Consult IR for PTHC given bile leak ( discussed with ED vice president [employer] who will discuss with IR team). Cont nexium daily, carafate /FEN: cont LR at 75/hr. Voiding spontaneously Endocrine: no hx of glyemic issues ID: No abx indicated Proph: lovenox daily and SCDs Dispo: Continue on RNF Patient d/w Attending Surgeon Dr. Sarmiento --- Madeleine Hooks MD General Surgery PGY3 Blue Pager: [phone] * Tamara Jurado MD - 07/31/2021 8:55 AM EDT Images from the original note were not included. BLUE SURGERY PROGRESS NOTE Subjective - NAEON - some abdominal pain on CORPORATE STRATEGY INTERN - some indigestion this morning - has [...] PRN .NO ORAL PAIN MEDS WHILE ON CORPORATE STRATEGY INTERN/EPIDURAL 1 Each PRN naloxone 0.4 mg PRN [...] for nausea; continue carafate - Tylenol, Robaxin, CORPORATE STRATEGY INTERN - LR 75, daily labs - oob [...] Torsten Jurado MD PGY1 documented in this [id number] Note* Care Plan Note - Oly High [...] adult patient will be met Outcome: Progressing [id number] Miscellaneous Notes* Care Plan Note - Oly [...] manage or decrease pain will be achieved 08/02/202145 by Keiko Zhang [...] year old female Surgical Contact Serial Number: [id number] Preoperative Diagnosis: Cyst of gallbladder [K82.8] Liver [...] Mercedes Soliman; Anya Fletcher; Juan Jon, VITA Director Of Assessing Nurse: Vitaly Reyes, RN; Kraig Espinal; Rosa Seo, VITA; Yumiko Haji, VITA; Irina Marie, VITA; Juany Higginbotham, process plant operatorLog Feeder: Madeleine Hooks MD Anesthesia: General Anesthesiologist: Neil Rodriguez MD; Uriel Hathaway DO CAA: Rina Childress INFANTRY SENIOR SERGEANT: Adrian Bermudez, CASTING AND PASTING SUPERVISOR-INFANTRY SENIOR SERGEANT; Jewel Vogel CASTING AND PASTING SUPERVISOR-INFANTRY SENIOR SERGEANT; Mariel Ireland CASTING AND PASTING SUPERVISOR-INFANTRY SENIOR SERGEANT Copyright Clerk: Al Mascorro MD; Jean Ojeda MD Specimen(s): [...] Diamond Larson MD Co-Surgeon: Dennis Sarmiento MD Jack Setter: Madeleine Hooks MD (general surgery resident) Anesthesiologist: [...] were discussed with the patient and/or legal livestock sales representative. The risks, benefits and alternatives were reviewed. Questions regarding anesthesia were answered. Patient and/or legal livestock sales representative knows such anesthetics and procedures [...] were discussed with the patient and/or legal livestock sales representative. The risks, benefits and alternatives were reviewed. Questions regarding blood transfusions were answered. The patient /or the patient s legal livestock sales representative agree with the plan for transfusion of blood and/or blood components. documented in this [id number] Note* Care Plan Note - Antoinette Elmore [...] adult patient will be met Outcome: Progressing [id number] Consult note* Lavinia Jones, PT - 08/03/2021 [...] Dep Max Mod Min CG CS DS AK I Comment Supine to sit x Sit [...] With Patients permission ordered no equipment via [employer] Order. If any questions contact [facility] DME Provider at [phone]. 1 Clicks Basic Mobility PT 08/03/2021 Difficulty turning [...] Care Lavinia Jones PT , DPT, CLT #[id number] NA = Not Assessed, I = Independent, AK = Modified Independent, Sup = Supervised, Set up = Physical Assistance for Set-up Only, Min = Minimal Assistance, Mod = Moderate Assistance, Max = Maximal assistance; Dep = Dependent; AROM = Active Range of Motion; PROM = Passive Range of Motion; MMT = Manual Muscle Test [id number] Consult note* Lavinia Jones PT - 08/03/2021 [...] Dep Max Mod Min CG CS DS AK I Comment Supine to sit x Sit [...] With Patients permission ordered no equipment via [employer] Order. If any questions contact [facility] DME Provider at [phone]. 6 Clicks Basic Mobility PT 08/03/2021 Difficulty [...] Care Lavinia Jones, PT , DPT, CLT #[id number] NA = Not Assessed, I = Independent, AK = Modified Independent, Sup = Supervised, Set [...] bed, hospital gown and hospital pants, PIV, JANTET drain Alertness: WFL Affect: WNL Cooperation/Behavior: Appropriate [...] Dep Max Mod Min CG CS DS AK I Set-Up Comment Feeding x Grooming/Hygiene x Bathing:UB x Bathing:LB x Dressing:UB x Dressing: LB x Toileting x Transfers/Bed Mobility: Assistance Level NA Dep Max Mod Min CG CS DS AK I Set-Up Comment Toilet Transfers x Bed Transfers x Bed Mobility x Dynamic standing x Endurance for Self Care: Good Static Sitting Balance: WFL Dynamic Sitting Balance: WFL Patient/Family Education: Instructed patient in roles of therapy Patient up in bed with call light in reach. . DME: With Patients permission ordered no equipment via [employer] Order. If any questions contact [facility] DME Provider at [phone]. Progressive Mobility Level: 4 6 Clicks Daily [...] Guard Assist/Supervision 4 - Non = Modified [place]/Independent ASSESSMENT: Patient is functionally appropriate for discharge [...] NA = Not Assessed, I = Independent, AK = Modified Independent, Sup = Supervised, Set up = Physical Assistance for Set-up Only, Min = Minimal Assistance, Mod = Moderate Assistance, Max = Max assistance; Dep = Dependent; AROM = Active Range of Motion;PROM=Passive Rangeof Motion; MMT = Manual Muscle Test; UB = Upper Body; LB = Lower Body * Zoya Anna, PT - 08/01/2021 3:20 PM EDT PHYSICAL THERAPY PROGRESS SUMMARY Patient seen from 1452 to 1520 on 8A unit for 28 minute treatment. SUBJECTIVE: Patient Subjective/Goals: It feels good to get up and get out OBJECTIVE: Appearance: drain x 1, reyes, IV, CORPORATE STRATEGY INTERN Behavior: Awake, pleasant, cooperative, agreeable to therapy Pain: Site/Location: stomach; Pain Scale: 6/10 Pain Relief Interventions Implemented: Positioning and Rest, pt utilizes CORPORATE STRATEGY INTERN PRN, RN aware Mobility NA Dep Max Mod Min CG CS DS AK I Comment Roll to right sidelying x [...] NA = Not Assessed, I = Independent, AK = Modified Independent, Sup = Supervised, Set [...] and benefits of treatment Appearance: Oxygen, IV, CORPORATE STRATEGY INTERN, Drain JANETT and Reyes Alertness: Drowsy Affect: flat Cooperation/Behavior: cooperative Communication: Able to express needs with increased processing time Pain: Pain ratin/10, Location: abdomen Pain Relief Interventions Implemented: Positioning and activity Self Care: Assistance Level Dep Max Mod Min CG CS DS AK I Set-Up Comment Feeding x Grooming/Hygiene x Standing sink side Bathing:UB x Anticipated, recommend seated Bathing:LB x Anticipated, recommend seated Dressing:UB x Dressing: LB x Socks Toileting x Reyes Transfers/Bed Mobility: Assistance Level Dep Max Mod Min CG CS DS AK I Set-Up Comment Toilet Transfers Bed Transfers [...] Guard Assist/Supervision 4 - Non = Modified [place]/Independent ASSESSMENT: Anticipate patient will be appropriate for [...] NA = Not Assessed, I = Independent, AK = Modified Independent, Sup = Supervised, Set [...] you Patient Identified 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 0 steps to bedroom/bathroom Assistance available: Spouse can assist PRN Equipment available: none OBJECTIVE: Appearance: Oxygen, IV, CORPORATE STRATEGY INTERN, Drain and Reyes Behavior: Drowsy Oriented x 4 Follows multple step commands consistently and without cues Pain: Site/Location: abdomen; Pain Scale: 7/10 Pain Relief Interventions Implemented: Encouraged patient to use CORPORATE STRATEGY INTERN Passive ROM: Not formally tested however observed [...] With Patients permission ordered no equipment via [employer] Order. If any questions contact [facility] DME Provider at [phone]. 6 Clicks Basic Mobility PT 07/31/2021 Difficulty [...] NA = Not Assessed, I = Independent, AK = Modified Independent, Sup = Supervised, Set up = Physical Assistance for Set-up Only, Min = Minimal Assistance, Mod = Moderate Assistance, Max = Max assistance; Dep = Dependent; AROM = Active Range of Motion; PROM = Passive Range of Motion; MMT = Manual Muscle Test; LE = Lower Extremity documented in this [id number] Consult note* Sharee Herndon, OT - 08/03/2021 [...] Dep Max Mod Min CG CS DS AK I Set-Up Comment Feeding x Grooming/Hygiene x Bathing:UB x Bathing:LB x Dressing:UB x Dressing: LB x Toileting x Transfers/Bed Mobility: Assistance Level NA Dep Max Mod Min CG CS DS AK I Set-Up Comment Toilet Transfers x Bed Transfers x Bed Mobility x Dynamic standing x Endurance for Self Care: Good Static Sitting Balance: WFL Dynamic Sitting Balance: WFL Patient/Family Education: Instructed patient in roles of therapy Patient up in bed with call light in reach. . DME: With Patients permission ordered no equipment via [employer] Order. If any questions contact [facility] DME Provider at [phone]. Progressive Mobility Level: 4 6 Clicks Daily [...] Guard Assist/Supervision 4 - Non = Modified [place]/Independent ASSESSMENT: Patient is functionally appropriate for discharge [...] NA = Not Assessed, I = Independent, AK = Modified Independent, Sup = Supervised, Set up = Physical Assistance for Set-up Only, Min = Minimal Assistance, Mod = Moderate Assistance, Max = Max assistance; Dep = Dependent; AROM = Active Range of Motion;PROM=Passive Rangeof Motion; MMT = Manual Muscle Test; UB = Upper Body; LB = Lower Body [id number] Note* Care Plan Note - Rayshawn Shaw [...] adult patient will be met Outcome: Progressing [id number] Note* Care Plan Note - Keiko Zhang [...] and use of medicines will be achieved 08/02/2021944 by Keiko Zhang RN Outcome: Progressing 08/02/2021943 by Keiko Zhang RN Outcome: Progressing Goal: Acceptable level of pain which allows the patient to achieve functional outcome goals 08/02/2021 09 by Keiko Zhang RN Outcome: Progressing 08/02/2021943 [...] 08/02/2021943 by Keiko Zhang RN Outcome: Progressing [id number] Note* Care Plan Note - Dinorah Palencia [...] adult patient will be met Outcome: Progressing [id number] Consult note* Zoya Anna, PT - 08/01/2021 3:20 PM EDT PHYSICAL THERAPY PROGRESS SUMMARY Patient seen from 1452 to 1520 on 8A unit for 28 minute treatment. SUBJECTIVE: Patient Subjective/Goals: It feels good to get up and get out OBJECTIVE: Appearance: drain x 1, reyes, IV, CORPORATE STRATEGY INTERN Behavior: Awake, pleasant, cooperative, agreeable to therapy Pain: Site/Location: stomach; Pain Scale: 6/10 Pain Relief Interventions Implemented: Positioning and Rest, pt utilizes CORPORATE STRATEGY INTERN PRN, RN aware Mobility NA Dep Max Mod Min CG CS DS AK I Comment Roll to right sidelying x [...] NA = Not Assessed, I = Independent, AK = Modified Independent, Sup = Supervised, Set up = Physical Assistance for Set-up Only, Min = Minimal Assistance, Mod = Moderate Assistance, Max = Maximal assistance; Dep = Dependent; AROM = Active Range of Motion; PROM = Passive Range of Motion; MMT = Manual Muscle Test [id number] Note* Care Plan Note - Dinorah Palencia [...] adult patient will be met Outcome: Progressing [id number] Consult note* Josephine Hunter, OT - 07/31/2021 [...] and benefits of treatment Appearance: Oxygen, IV, CORPORATE STRATEGY INTERN, Drain JANETT and Reyes Alertness: Drowsy Affect: flat Cooperation/Behavior: cooperative Communication: Able to express needs with increased processing time Pain: Pain ratin/10, Location: abdomen Pain Relief Interventions Implemented: Positioning and activity Self Care: Assistance Level Dep Max Mod Min CG CS DS AK I Set-Up Comment Feeding x Grooming/Hygiene x Standing sink side Bathing:UB x Anticipated, recommend seated Bathing:LB x Anticipated, recommend seated Dressing:UB x Dressing: LB x Socks Toileting x Reyes Transfers/Bed Mobility: Assistance Level Dep Max Mod Min CG CS DS AK I Set-Up Comment Toilet Transfers Bed Transfers [...] Guard Assist/Supervision 4 - Non = Modified [place]/Independent ASSESSMENT: Anticipate patient will be appropriate for [...] NA = Not Assessed, I = Independent, AK = Modified Independent, Sup = Supervised, Set up = Physical Assistance for Set-up Only, Min = Minimal Assistance, Mod = Moderate Assistance, Max = Max assistance; Dep = Dependent; AROM = Active Range of Motion;PROM=Passive Rangeof Motion; MMT = Manual Muscle Test; UB = Upper Body; LB = Lower Body [id number] Consult note* Heladio Chun, PT - 07/31/2021 [...] you Patient Identified 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 0 steps to bedroom/bathroom Assistance available: Spouse can assist PRN Equipment available: none OBJECTIVE: Appearance: Oxygen, IV, CORPORATE STRATEGY INTERN, Drain and Reyes Behavior: Drowsy Oriented x 4 Follows multple step commands consistently and without cues Pain: Site/Location: abdomen; Pain Scale: 7/10 Pain Relief Interventions Implemented: Encouraged patient to use CORPORATE STRATEGY INTERN Passive ROM: Not formally tested however observed [...] With Patients permission ordered no equipment via [employer] Order. If any questions contact [facility] DME Provider at [phone]. 6 Clicks Basic Mobility PT 07/31/2021 Difficulty [...] NA = Not Assessed, I = Independent, AK = Modified Independent, Sup = Supervised, Set up = Physical Assistance for Set-up Only, Min = Minimal Assistance, Mod = Moderate Assistance, Max = Max assistance; Dep = Dependent; AROM = Active Range of Motion; PROM = Passive Range of Motion; MMT = Manual Muscle Test; LE = Lower Extremity [id number] Note* Care Plan Note - Dinorah Palencia [...] adult patient will be met Outcome: Progressing [id number] Nurse Surgical operation note* Irina Marie RN - 07/30/2021 7:58 PM EDT One 5fr stent placed in left hepatic duct, one 8 fr stent placed in accessory duct by Dr. Sarmiento intraoperatively. [id number] Nurse Note* Irina Marie RN - 07/30/2021 7:58 PM EDT One 5fr stent placed in left hepatic duct, one 8 fr stent placed in accessory duct by Dr. Sarmiento intraoperatively. documented in this [id number] Note* Brief Operative Note - Madeleine Hooks MD - 07/30/2021 2:08 PM EDT Brief Operative Note MAIN OR 07 Shahla Ruelas 41 year old female Surgical Contact Serial Number: [id number] Preoperative Diagnosis: Cyst of gallbladder [K82.8] Liver [...] Mercedes Soliman; Anya Fletcher; Juan Jon RN Director Of Assessing Nurse: Vitaly Reyes RN; Kraig Espinal; Rosa Seo RN; Yumiko Haji, VITA; Irina Marie, VITA; Juany Higginbotham, process plant operatorLog Feeder: Madeleine Hooks MD Anesthesia: General Anesthesiologist: Neil Rodriguez MD; Uriel Hathaway DO CAA: Rina Childress INFANTRY SENIOR SERGEANT: Adrian Bermudez CASTING AND PASTING SUPERVISOR-INFANTRY SENIOR SERGEANT; Jewel Vogel CASTING AND PASTING SUPERVISOR-INFANTRY SENIOR SERGEANT; Mariel Ireland CASTING AND PASTING SUPERVISOR-INFANTRY SENIOR SERGEANT Copyright Clerk: Al Mascorro MD; Jean Ojeda MD Specimen(s): [...] by Madeleine Hooks MD 07/30/2021 11:09 PM [id number] Note* OP Note - Diamond Larson MD [...] Diamond Larson MD Co-Surgeon: Dennis Sarmiento MD Jack Setter: Madeleine Hooks MD (general surgery resident) Anesthesiologist: [...] portion of the procedure. Diamond Larson MD [employer] Work Phone: 1(846) 754-285405-27-2022 History and physical note* Madeleine Hooks MD [...] possible Madeleine Hooks MD 07/30/2021 11:08 AM [id number] History and physical note* Madeleine Hooks MD [...] MD 07/30/2021 11:08 AM documented in this [id number] Note* Anesthesia Attestation - Uriel Hathaway DO - 07/30/2021 11:01 AM EDT Anesthesia Attestation ATTESTATION OF INFORMED CONSENT FOR ANESTHESIA Anesthesia options were discussed with the patient and/or legal livestock sales representative. The risks, benefits and alternatives were reviewed. Questions regarding anesthesia were answered. Patient and/or legal livestock sales representative knows such anesthetics and procedures may be performed by Resident physicians, Certified Anesthesiologist Assistants, or Certified Nurse Anesthetists under the supervision of a physician. The patient /or the patient s legal representativeagree with the plan for anesthesia. [facility] Work Phone: 1(146) 681-347905-27-2022 Note* Blood Attestation - Uriel Hathaway DO - 07/30/2021 11:01 AM EDT Blood Attestation ATTESTATION OF INFORMED CONSENT FOR BLOOD The transfusion of blood and/or blood components were discussed with the patient and/or legal livestock sales representative. The risks, benefits and alternatives were reviewed. Questions regarding blood transfusions were answered. The patient /or the patient s legal livestock sales representative agree with the plan for transfusion of blood and/or blood components. [id number] Miscellaneous Notes* OP Note - Dennis Sarmiento MD - 07/30/2021 8:03 AM EDT Name: SHAHLA RUELAS MR#: [id number] [facility]#: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 [address] [place] [address] [place] [address] ASSISTANT BROKER Anesthesiology 08/07/21 Hair Boiler Operator Relationship Specialty Start Date End Date Debo Strickland APRN-ENGINEER RF DEPLOYMENT [address] [place] [address] [place] [address] ASSISTANT BROKER Gastroenterology 05/08/21 Dennis Sarmiento MD [address] [place] [address] Physician General Surgery 07/10/21 Marcella Luevano CASTING AND 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 RF DEPLOYMENT [address] [place] [address] [place] [address] ASSISTANT BROKER Anesthesiology 08/07/21 Hair Boiler Operator Relationship Specialty Start Date End Date Dennis Sarmiento MD [address] [place] [address] Physician General Surgery 07/10/21 Marcella Luevano CASTING AND 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 RF DEPLOYMENT [address] [place] [address] [place] [address] ASSISTANT BROKER Anesthesiology 08/07/21 Hair Boiler Operator Relationship Specialty Start Date End Date Dennis Sarmiento MD [address] [place] [address] Physician General Surgery 07/10/21 Marcella Luevano CASTING AND 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 RF DEPLOYMENT [address] [place] [address] [place] [address] ASSISTANT BROKER Anesthesiology 08/07/21 Hair Boiler Operator Relationship Specialty Start Date End Date Dennis Sarmiento MD [address] [place] [address] Physician General Surgery 07/10/21 Marcella Luevano, CASTING AND 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 RF DEPLOYMENT [address] [place] [address] [place] [address] ASSISTANT BROKER Anesthesiology 08/07/21 Team Status: Active Member Role Status Dates Tamara Calero DO Primary Care Provider Active Antolin Abarca DO Emergency Provider Active Geo Loomis MD Admit Provider, Attending Provider Active Hair Boiler Operator Relationship Specialty Start Date End Date Dennis Sarmiento MD [address] [place] [address] Physician General Surgery 07/10/21 Marcella Luevano APRN-ENGINEER RF DEPLOYMENT [address] [place] [address] [place] [address] ASSISTANT BROKER Anesthesiology 08/07/21 Team Status: Active Member Role [...] Inactive Member Role Status Dates Josette Mandel BENCH MOLDER-C Primary Care Provider Active Start: September 28, 2023 End: September 28, 2023 Vale Chen APRN Attending Provider Active Start: September 28, 2023 End: September 28, 2023 Team Status: Active Member Role Status Dates Tamara Calero DO Primary Care Provider Active Start: October 25, 2023 Vivek Antoine MD Attending Provider Active Start: October 25, 2023 Team Status: Active Member Role Status Dates Josette Mandel BENCH MOLDER-C Primary Care Provider Active Start: November 08, [...] Inactive Member Role Status Dates Josette Mandel BENCH MOLDER-C Primary Care Provider Active Start: November 08, 2023 End: November 14, 2023 Art Pa MD Emergency Provider Active St art: November 08, 2023 End: November 14, 2023 Geo Loomis MD Admit Provider, Atte nding Provider Active Start: November 08, 2023 End: November 14, 2023 Team Status: Active Member Role Status Dates Josette Mandel BENCH MOLDER-C Primary Care Provider Active Start: November 09, 2023 Art Pa MD Emergency Provider Active St art: November 09, 2023 Geo Loomis MD Admit Provider, Atte nding Provider, Other Provider Active Start: November 09, 2023 Hair Boiler Operator Relationship Specialty Start Date End Date Josette Mandel APRN-ENGINEER [employer] [address] [facility] [place] [address] PCP - General Family Medicine 08/25/23 Team Status: Inactive Member Role Status Dates Josette Mandel NP-C Primary Care Provider Active Start: February 12, 2024 End: February 12, 2024 Vale Chen APRN Attending Provider Active Start: February 12, 2024 End: February 12, 2024 Team Status: Active Member Role Status Dates Tamara Calero DO Primary Care Provider Active Start: March 14, 2024 Vivek Antoine MD Attending Provider Active Start: March 14, 2024 Team Status: Inactive Member Role Status Dates EVELYN SkaggsC Primary Care Provider Active Start: March 31, 2024 End: March 31, 2024 Vonnie Chandler APRN Attending Provider Active S tart: March 31, 2024 End: March 31, 2024 Hair Boiler Operator Relationship Specialty Start Date End Date Tamara Calero DO NPI: [id number] [place] [id number] PCP - General Family Medicine 09/25/18 Hair Boiler Operator Relationship Specialty Start Date End Date Josette Mandle APRN-ENGINEER [employer] [address] [facility] [place] [address] PCP - General Family Medicine 08/25/23 Hair Boiler Operator Relationship Specialty Start Date End Date Tamara Calero DO NPI: [id number] [place] [id number] PCP - General Family Medicine 09/25/18 Hair Boiler Operator Relationship Specialty Start Date End Date Josette Mandel CASTING AND 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 [employer] [address] [facility] [place] [address] PCP - General Family Medicine 08/25/23 Team Status: Active Member Role Status Dates Tamara Calero DO Primary Care Provider Active Start: June 05, 2024 Vivek Antoine MD Attending Provider Active Start: June 05, 2024 Team Status: Active Member Role Status Dates Josette Mandel NP-C Primary Care Provider Active Start: June 11, 2024 Cole Cast , DO Emergency Provider Active Sta rt: June 11, 2024 Vivek Antoine MD Admit Provide r, Attending Provider Active Start: June 11, 2024 Team Status: Inactive Member Role Status Dates EVELYN SkaggsC Primary Care Provider Active Start: June 11, 2024 End: June 14, 2024 Cole Cast DO Emergency Provider Active Sta rt: June 11, 2024 End: June 14, 2024 Vivek Antoine MD Admit Provide r, Attending Provider Active Start: June 11, 2024 End: June 14, 2024 Team Status: Active Member Role Status Dates Josette Mandel NP-C Primary Care Provider Active Start: June 12, 2024 Cole Cast DO Emergency Provider Active Sta rt: June 12, 2024 Vivek Antoine MD Admit Provide r, Attending Provider, Other Provider Active Start: June 12, 2024 Hair Boiler Operator Relationship Specialty Start Date End Date Josette Mandel APRN-ENGINEER [employer] [address] [place] [address] PCP - General Family Medicine 08/25/23 Team Status: Active Member Role Status Dates Tamara Calero DO Primary Care Provider Active Start: June 19, 2024 Vivek Antoine MD Attending Provider Active Start: June 19, 2024 Team Status: Inactive Member Role Status Dates Josette Mandel NP-C Primary Care Provider Active Start: June 25, 2024 End: June 25, 2024 Priyanka Lemon APRN Attending Provider Active Start: June 25, 2024 End: June 25, 2024 Team Status: Active Member Role Status Dates Tamara Calero DO Primary Care Provider Active Start: June 26, 2024 Vivek Antoine MD Attending Provider Active Start: June 26, 2024 Team Status: Inactive Member Role Status Dates Josette Mandel NP-C Primary Care Provider Active Start: July 06, 2024 End: July 06, 2024 Heladio Robbins Jr, MD Emergency Provider Active Start: July 06, 2024 End: July 06, 2024 Hair Boiler Operator Relationship Specialty Start Date End Date Dennis Sarmiento MD [address] [place] [address] Physician General Surgery 07/10/21 Marcella Luevano APRN-ENGINEER [employer] [address] [place] [address] [place] [address] ASSISTANT BROKER Anesthesiology 08/07/21 Reason for Visit (unrecogniz ed section and content) Reason Onset Date Comments Anemia 07/16/2021 Consult with specialist 07/16/2021 Reason Comments Post-op Follow-up Reason Comments Limited or partial exam Specialty Diagnoses / Procedures Referred By Vinayak hayward Referred To Contact General Surgery Diagnoses Cyst of gallbladder History of biliary stent insertion Johan Stephens MD [address] [place] [address] [address] [place] [id number] [facility] [address] [place] [address] Referral ID Status Reason Start Date Expiration Date V isits Requested Visits Authorized [id number] Authorized 04/28/2021 10/25/2021 3 3 Reason Onset Date Comments No Show 02/14/2022 Reason Comments 3 month f/u No testing Severe claudica tion Sometimes with walking toes go numb bilateral feet. States pain is getting better. Has been able to walk longer without pain Reason Comments Annual Exam Reason Comments PVD Testing done here at [facility] 3 months ago Reason Comments Hospital Follow-up [facility] Reason Comments 3 month follow up No testing ordered Severe claudication (CMS-HCC) PVD Reason Comments Med Refill Scheduled Active and Recently Administ ered Medications [...] - Provider: Oly High RN)1400 (Due)2200 (Due) enoxaparin (LOVENOX) 40 MG/0.4ML injection [...] Elmore RN) 0919 (Given - Provider: Antoinette Elmore, VITA) fluoxetine (PROZAC) capsule 20 mg, Oral, DAILY, First dose on 07/31/21 at 0900, Until Discontinued, Post-op 0834 (Given - Provider: Keiko Zhang RN) 0958 (Given - Provider: Antoinette Elmore RN) 1200 (Due - Provider: Antoinette Elmore RN) gabapentin (NEURONTIN) capsule 300 mg, Oral, 3 TIMES DAILY, First dose on 08/02/21 at 0830, Until Discontinued 0834 (Given - [...] MEALS & AT BEDTIME, First dose on 07/31/21 at 1200, Until Discontinued 0833 (Given - [...] on 07/31/21 at 2200, Until Discontinued, Post-op 2212 (Given [...] Nebulization, EVERY 4 HOURS PRN, Starting on Mon08/01/21 at 0813, Until Discontinued, Shortness of Breath, [...] VITA) 0530 (Given - Provider: Oly High, VITA)0920 (Given - Provider: Antoinette Elmore RN) Promethazine [...] BE BASED ON THE PRIMARY CLINICAL RECORDS. [facility], [facility]. provides no warranty or guarantee of the accuracy or completeness of information in this document.
--- NOTE | 2024-09-13 22:26 | ECG_ITS ---
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
--- NOTE | 2024-09-13 22:42 | XR_ITS ---
The [address] [address] Patient Name: SHAHLA THAPA MRN: [id number] date: 1980 Sex: F Assigned Patient Location: ER Current Patient Location: ER Accession/Order Number: [id number] Exam Date: 09/13/2024 23:31 Report Date: 09/13/2024 23:33 At the request of: KHLOE PHAM DO Procedure: XR chest 2V PA AND LATERAL CHEST: CLINICAL HISTORY: SOB and COUGH COMPARISON: 05/22/2024 FINDINGS: Unremarkable cardiomediastinal. Lungs clear. No effusion or pneumothorax. XR/XR chest 2V IMPRESSION: NO ACUTE CARDIOPULMONARY ABNORMALITY. Impression dictated by: Chandra Johnson M.D. 09/13/2024 11:33 PM Dictation Location: [place] [address] Electronically authenticated by: [id number] Y Date: 09/13/2024 23:33
--- NOTE | 2024-09-13 22:42 | CT_ITS ---
The [address] [address] Patient Name: SHAHLA THAPA MRN: [id number] date: 1980 Sex: F Assigned Patient Location: ER Current Patient Location: ER Accession/Order Number: [id number] Exam Date: 09/13/2024 23:34 Report Date: 09/13/2024 23:38 At the request of: KHLOE PHAM DO Procedure: CT head/brain wo con CT BRAIN WITHOUT CONTRAST: CLINICAL HISTORY: vertical nystagmus, dizziness COMPARISON: None TECHNIQUE: Contiguous axial unenhanced images were obtained through the brain. This CT exam was performed using one or more following dose reduction techniques: Automated exposure control, adjustment of the mA and/or kV according to patient size, or use of iterative reconstruction technique. FINDINGS: There is no evidence of midline shift, intra or extra-axial fluid collection, hemorrhage or CT evidence of acute large vascular distribution stroke. Intracranial vascular disease. Suspected partial empty sella turcica. Visualized intraorbital contents appear unremarkable. Visualized paranasal sinuses are clear. The surrounding soft tissues are normal. CT/CT head/brain wo con IMPRESSION: NO ACUTE INTRACRANIAL ABNORMALITY. Impression dictated by: Chandra Johnson M.D. 09/13/2024 11:38 PM Dictation Location: [place] [address] Electronically authenticated by: [id number] Y Date: 09/13/2024 23:38
--- NOTE | 2024-09-13 22:49 | ED.GENADUL1 ---
HPI HPI - General Adult General Chief complaint: Shortness of Breath/Dyspnea Stated complaint: SOB, DIZZINESS, IMMOBILITY Time Seen by Provider: 09/13/24 22:36 Source: patient Mode of arrival: Wheelchair Limitations: no limitations History of Present Illness HPI narrative: The patient is a 44-year-old female who presents to the emergency department for dizziness, chest pain, and shortness of breath. Symptoms have been going on for 3 days. They are constant and getting worse. Patient states that she did not speak with her medical physician yet because she thought that her symptoms would go away. Patient has a known past medical history of aortic stenosis and she indicates that she is supposed to have an ablation done next week. Patient has not had any new medication or dosage changes. She has no nausea or vomiting. No diarrhea or constipation. She is not having any numbness or tingling in her legs. No burning, urgency, or frequency with urination. Patient has no trauma to the head. No ear pain. No difficulty swallowing. Related Data Home Medications ?Medication ?Instructions ?Recorded ?Confirmed gabapentin 300 mg capsule 600 mg PO TID 05/09/23 05/21/24 olmesartan 20 1 tab PO DAILY 05/09/23 05/22/24 mg-hydrochlorothiazide 12.5 mg tablet omeprazole 40 mg capsule,delayed 40 mg PO .BIDAC 05/09/23 05/21/24 release albuterol sulfate 90 mcg/actuation 2 puff inhalation Q4H PRN 02/12/24 05/21/24 aerosol inhaler shortness of breath or wheezing cholecalciferol (vitamin D3) 50 50 mcg PO DAILY 02/12/24 05/21/24 mcg (2,000 unit) tablet lorazepam 1 mg tablet 1 mg PO TID PRN anxiety 02/12/24 05/21/24 olanzapine 5 mg tablet 5 mg PO BID PRN agitation 02/12/24 05/22/24 aspirin 81 mg tablet,delayed 81 mg PO DAILY 05/21/24 05/21/24 release bupropion HCl 300 mg 24 hr tablet, 300 mg PO DAILY 05/21/24 05/21/24 extended release hydroxyzine pamoate 25 mg capsule 75 mg PO TID PRN anxiety 05/21/24 05/22/24 levomilnacipran 20 mg capsule,24 20 mg PO DAILY 05/21/24 05/21/24 hr,extended release (Fetzima) vilazodone 20 mg tablet 20 mg PO DAILY 05/21/24 05/22/24 Previous Rx's ?Medication ?Instructions ?Recorded atorvastatin 40 mg tablet 40 mg PO DAILY #30 tabs 05/08/23 clopidogrel 75 mg tablet (Plavix) 75 mg PO DAILY #30 tabs 05/08/23 meclizine 25 mg tablet 25 mg PO TID PRN dizziness #14 tabs 09/14/24 prednisone 10 mg tablet See Rx Instructions .Route 09/14/24 .COMPLEX #30 tabs Allergies Allergy/AdvReac Type Severity Reaction Status Date / Time ciprofloxacin (From Cipro) Allergy Severe Swelling Verified 09/13/24 22:22 of Lip/Tongue/Throat metronidazole (From Flagyl) Allergy Severe Swelling Verified 09/13/24 22:22 of Lip/Tongue/Throat Penicillins Allergy Severe Swelling Verified 09/13/24 22:22 of Lip/Tongue/Throat Opioid HPI Opioid Management Most Recent Opioid Data: Last Pain Scale 0 05/24/24, 04:04 Last ORT Total Score 3 05/21/24, 23:57 Last ORT Risk Category Low Risk 05/21/24, 23:57 Review of Systems ROS Narrative 10 Systems were reviewed, and unless noted in the HPI, all other systems are reviewed, unremarkable, or noncontributory. PFSH PFS Medical History COPD (chronic obstructive pulmonary disease) with acute bronchitis ?J44.0 - Chronic obstructive pulmonary disease with (acute) lower respiratory infection (ICD-10) ?J20.9 - Acute bronchitis, unspecified (ICD-10) Acute renal insufficiency ?N28.9 - Disorder of kidney and ureter, unspecified (ICD-10) Sleep apnea syndrome ?G47.30 - Sleep apnea, unspecified (ICD-10) Obesity ?E66.9 - Obesity, unspecified (ICD-10) Tobacco abuse ?Z72.0 - Tobacco use (ICD-10) Prediabetes ?R73.03 - Prediabetes (ICD-10) Hyperlipidemia ?E78.5 - Hyperlipidemia, unspecified (ICD-10) ?Z34.90 - Encounter for supervision of normal , unspecified, unspecified trimester (ICD-10) Abdominal pain ?R10.9 - Unspecified abdominal pain (ICD-10) Elevated troponin ?R79.89 - Other specified abnormal findings of blood chemistry (ICD-10) Demand ischemia ?I24.89 - Other forms of acute ischemic heart disease (ICD-10) IAM (acute kidney injury) ?N17.9 - Acute kidney failure, unspecified (ICD-10) Peripheral vascular disease ?I73.9 - Peripheral vascular disease, unspecified (ICD-10) Acute renal failure ?N17.9 - Acute kidney failure, unspecified (ICD-10) Pneumonia ?J18.9 - Pneumonia, unspecified organism (ICD-10) Acute kidney injury ?N17.9 - Acute kidney failure, unspecified (ICD-10) Acute hypotension ?I95.9 - Hypotension, unspecified (ICD-10) Schizo affective schizophrenia ?F25.9 - Schizoaffective disorder, unspecified (ICD-10) delivery delivered ?O82 - Encounter for delivery without indication (ICD-10) Cholecystectomy planned Bilateral carpal tunnel syndrome ?G56.03 - Carpal tunnel syndrome, bilateral upper limbs (ICD-10) Left adrenal mass ?E27.8 - Other specified disorders of adrenal gland (ICD-10) Raynauds disease ?I73.00 - Raynaud's syndrome without gangrene (ICD-10) Nicotine dependence ?F17.200 - Nicotine dependence, unspecified, uncomplicated (ICD-10) GERD without esophagitis ?K21.9 - Gastro-esophageal reflux disease without esophagitis (ICD-10) Irritable bowel syndrome (IBS) ?K58.9 - Irritable bowel syndrome, unspecified (ICD-10) Left ventricular hypertrophy ?I51.7 - Cardiomegaly (ICD-10) Asthma ?J45.909 - Unspecified asthma, uncomplicated (ICD-10) Vitamin D deficiency ?E55.9 - Vitamin D deficiency, unspecified (ICD-10) SHARI (obstructive sleep apnea) ?G47.33 - Obstructive sleep apnea (adult) (pediatric) (ICD-10) Anxiety disorder with panic attacks ?F41.9 - Anxiety disorder, unspecified (ICD-10) Depression ?F32.A - Depression, unspecified (ICD-10) Hypertension ?I10 - Essential (primary) hypertension (ICD-10) Surgical History H/O removal of cyst ?Z98.890 - Other specified postprocedural states (ICD-10) H/O cardiac catheterization ?Z98.890 - Other specified postprocedural states (ICD-10) H/O tubal ligation ?Z98.51 - Tubal ligation status (ICD-10) Family History Mother Family history of stroke Family history of cancer Social History Highest level of school completed/degree received: high school graduate Little interest or pleasure in doing things: not at all Feeling down, depressed, or hopeless: not at all Exam Narrative Exam Narrative: Prior to examining the patient, I have washed with hospital approved and provided Antiseptic Hand V Block Saw Operator and have also applied gloves.? Prior to touching the patient, I asked for consent to examine the patient.? General: Alert and oriented, well nourished, mild distress. Eye: PERRL, EOMI, normal conjunctiva. HENT: Normocephalic, normal hearing, moist oral mucosa, no scleral icterus, Lungs: Clear to auscultation and percussion, non-labored respiration. Heart: Normal rate, regular rhythm, no murmur, gallop or edema. Abdomen: Soft, non-tender, non-distended, normal bowel sounds, no masses. Musculoskeletal: Normal range of motion and strength, no tenderness or swelling. Skin: Skin is warm, dry and pink, no rashes or lesions. Neurologic: Awake, alert, and oriented X3, CN II-XII intact. Psychiatric: Cooperative, appropriate mood and affect.? Following the conclusion of the examination, I have washed my hands thoroughly after removing examination gloves. Constitutional Vital Signs, click to edit/add: Last Vital Signs Temp 98.0 F 09/13/24 22:12 Pulse 86 09/14/24 02:01 Resp 17 09/14/24 02:01 BP 136/70 09/14/24 02:01 Pulse Ox 96 09/14/24 02:01 O2 Del Method Room Air 09/13/24 22:12 Course Course Hospital Course: In summary the patient is presenting to the emergency department complaining of dizziness and shortness of breath. She is also complaining of some chest pain. Patient is getting an chest pain workup. Because she is had pain constantly for several days patient will only need 1 troponin. Reevaluation(s) Reevaluation #1: HEART SCORE: 5 (EKG changes are not acute, so adjusted score is 3 (can be done as an outpatient.) Reevaluation #2: D-Dimer positive so needs CT PE study which is negative. Vital Signs Vital signs: Vital Signs Blood Pressure 102/66 09/13/24 20:02 Temperature 98.0 F 09/13/24 22:12 Pulse Rate 86 09/14/24 02:01 Respiratory Rate 17 09/14/24 02:01 Blood Pressure 136/70 09/14/24 02:01 Pulse Oximetry 96 09/14/24 02:01 Oxygen Delivery Method Room Air 09/13/24 22:12 Medical Decision Making Differential Diagnosis Differential Diagnosis: Congestive heart failure, COPD, asthma, pulmonary embolism, pickwick[place] syn Medical Records Medical records reviewed: Yes I reviewed the patient's medical records Lab Data Lab results reviewed: Yes I reviewed the patient's lab results Lab results narrative: CBC reveals a white blood cell count elevation of 0.4 thousand. Baseline. Comprehensive metabolic panel revealed no electrolyte derangement. Kidney and liver function were okay. D-dimer is positive at 0.63. I was not able to PERC the patient out. Age corrected D-dimer was still elevated. Therefore, I ended up having to scan the patient to do a CT PE to rule out a pulmonary embolism. Urine analysis was negative. Labs: Lab Results 09/13/24 09/13/24 Range/Units 23:05 23:10 WBC 11.4 H (4.0-11.0) 10^3/uL RBC 4.09 L (4.20-5.40) 10^6/uL Hgb 12.5 (12.0-16.0) g/dL Hct 38.1 (36.0-48.0) % MCV 93.2 (81.0-99.0) fL MCH 30.6 (26.7-34.0) pg MCHC 32.8 (29.9-35.2) g/dL RDW 14.3 (11.0-15.0) % Plt Count 284 (150-450) 10^3/uL MPV 9.9 (9.5-13.5) fL Neut % (Auto) 67.3 (43.0-75.0) % Lymph % (Auto) 21.8 (20.5-60.0) % [place] % (Auto) 7.3 (1.7-12.0) % Eos % (Auto) 2.4 (0.9-7.0) % Baso % (Auto) 0.8 (0.2-2.0) % Neut # (Auto) 7.7 H (1.4-6.5) 10^3/uL Lymph # (Auto) 2.5 (1.2-3.8) 10^3/uL [place]inger # (Auto) 0.8 (0.3-0.8) 10^3/uL Eos # (Auto) 0.3 (0.0-0.7) 10^3/uL Baso # (Auto) 0.1 (0.0-0.1) 10^3/uL Abs Immat Gran (auto) 0.05 H (0.00-0.03) 10^3/uL Imm/Tot Granulo (auto) 0.4 (0.0-0.5) % D-Dimer 0.63 H* (<=0.59) mg/L FEU Sodium 138 (136-145) mmol/L Potassium 4.1 (3.5-5.1) mmol/L Chloride 101 (98-107) mmol/L Carbon Dioxide 29.7 (21.0-32.0) mmol/L Anion Gap 11.4 BUN 20.0 H (7.0-18.0) mg/dL Creatinine 1.25 H (0.55-1.02) mg/dL Est GFR ( Amer) 56 L (>=60 mL/min/1.73m^2) Est GFR (Non-Af Amer) 46 L (>=60 mL/min/1.73m^2) BUN/Creatinine Ratio 16.0 Glucose 88 (74-106) mg/dL Calcium 9.0 (8.5-10.1) mg/dL Total Bilirubin 0.5 (0.2-1.0) mg/dL AST 19 (15-37) U/L ALT 25 (14-59) U/L Alkaline Phosphatase 105 (46-116) U/L Troponin I High Sens 46.2 (4.0-51.3) pg/mL Total Protein 7.1 (6.4-8.2) g/dL Albumin 3.2 L (3.4-5.0) g/dL Globulin 3.9 g/dL Albumin/Globulin Ratio 0.8 Urine Color Yellow (YELLOW) Urine Clarity Clear (CLEAR) Urine pH 6.0 (5.0-9.0) Ur Specific [place] 1.025 (1.005-1.025) Urine Protein Negative (NEG/TRACE) mg/dL Urine Glucose (UA) Negative (NEGATIVE) mg/dL Urine Ketones Negative (NEGATIVE) mg/dL Urine Occult Blood Negative (NEGATIVE) Urine Nitrite Negative (NEGATIVE) Urine Bilirubin Negative (NEGATIVE) Urine Urobilinogen 0.2 (0.2-1.0) EU/dL Ur Leukocyte Esterase Negative (NEGATIVE) Imaging Data CT chest w/: Attestation: I have reviewed the pertinent imaging results. Radiologist's impression: ITS Impressions Chest X-Ray 09/13/24 22:42 IMPRESSION: NO ACUTE CARDIOPULMONARY ABNORMALITY. Impression dictated by: Chandra Johnson M.D. 09/13/2024 11:33 PM Dictation Location: [facility] Electronically authenticated by: [id number] Y Date: 09/13/2024 23:[address] 09/13/24 22:42 IMPRESSION: NO ACUTE INTRACRANIAL ABNORMALITY. Impression dictated by: Chandra Johnson M.D. 09/13/2024 11:38 PM Dictation Location: [facility] Electronically authenticated by: [id number] Y Date: 09/13/2024 23:[address] PE study for me. The patient has no evidence of pulmonary embolism further scattered pulmonary nodules and if the patient is high risk for developing lung cancer they considered follow-up in 1 year otherwise follow-up is unnecessary. Patient is however high risk with smoking ECG Data Attestation: I personally reviewed and interpreted this ECG as follows: Prior ECG tracings: available for review Interpretation: Twelve-lead EKG: Twelve-lead EKG was a sinus rhythm with a ventricular rate of 86 bpm. The CA interval and QRS duration are normal. QTc is not prolonged. There is T wave inversion in V2 through V6. Patient has evidence of left ventricular hypertrophy. No ST segment elevation to suggest STEMI. Summary: Abnormal EKG this grossly as abnormal EKG has not changed since May 21, 2024. No morphologic changes appreciated. Smoking Cessation Time spent discussing smoking cessation with patient: 3 to 10 minutes Patient Acknowledges Need for Cessation: Yes Additional Comments: Patient told about the pulmonary nodules and how she is to get another CT scan in 1 year. Discharge Plan Discharge Chief Complaint: Shortness of Breath/Dyspnea Clinical Impression: Acute dyspnea, Dizziness, Multiple pulmonary nodules determined by computed tomography of lung Patient Disposition: Home, Self-Care Time of Disposition Decision: 01:55 Condition: Good Mode of Transportation: Private Vehicle Prescriptions / Home Meds: New prednisone 10 mg tablet See Rx Instructions .ROUTE .COMPLEX Qty: 30 0RF Rx Instructions: 4 tabs x 3 days, 3 tabs x 3 days, 2 tabs x 3 days, 1 tab x 3 days meclizine 25 mg tablet 25 mg PO TID PRN (Reason: dizziness) Qty: 14 0RF No Action clopidogrel [Plavix] 75 mg tablet 75 mg PO DAILY Qty: 30 0RF atorvastatin 40 mg tablet 40 mg PO DAILY Qty: 30 0RF gabapentin 300 mg capsule 600 mg PO TID olmesartan-hydrochlorothiazide 20-12.5 mg tablet 1 tab PO DAILY omeprazole 40 mg capsule,delayed release(DR/EC) 40 mg PO .BIDAC albuterol sulfate 90 mcg/actuation HFA aerosol inhaler 2 puff INHALATION Q4H PRN (Reason: shortness of breath or wheezing) cholecalciferol (vitamin D3) 50 mcg (2,000 unit) tablet 50 mcg PO DAILY lorazepam 1 mg tablet 1 mg PO TID PRN (Reason: anxiety) olanzapine 5 mg tablet 5 mg PO BID PRN (Reason: agitation) aspirin 81 mg tablet,delayed release (DR/EC) 81 mg PO DAILY bupropion HCl 300 mg tablet extended release 24 hr 300 mg PO DAILY hydroxyzine pamoate 25 mg capsule 75 mg PO TID PRN (Reason: anxiety) Fetzima 20 mg capsule,extended release 24 hr 20 mg PO DAILY vilazodone 20 mg tablet 20 mg PO DAILY Print Language: Tajik Instructions: Vertigo (ED), Dyspnea (ED), Near Syncope (ED), Pulmonary Nodules (ED) Additional Instructions: You have evidence of pulmonary nodules. You smoke. That puts you at high risk for cancer. We are recommending that you have a repeat CT scan of your chest in 1 year so the nodules can be reassessed. The nodules are not causing your shortness of breath today. I think you are developing COPD. Referrals: MILLIE MANDEL [Primary Care Provider, Family Practice] - 1 week Discharge Date/Time: 09/14/24 06:15
[2024-09-13 23:18] LABS: Hematocrit 38.1 % (36.0-48.0); Hemoglobin 12.5 g/dL (12.0-16.0); Immature Granulocytes Abs Auto 0.05 10^3/uL (0.00-0.03); Immature Granulocytes Pct Auto 0.4 % (0.0-0.5); Lymphocytes Absolute Auto 2.5 10^3/uL (1.2-3.8); Mean Corpuscular HGB Conc 32.8 g/dL (29.9-35.2); Mean Corpuscular Hemoglobin 30.6 pg (26.7-34.0); Mean Corpuscular Volume 93.2 fL (81.0-99.0); Platelet Count 284 10^3/uL (150-450); Red Blood Count 4.09 10^6/uL (4.20-5.40); White Blood Count 11.4 10^3/uL (4.0-11.0)
[2024-09-13 23:18] LABS: Glucose Urine UA NEGATIVE (NEGATIVE)
[2024-09-13 23:38] LABS: Alanine Aminotransferase 25 U/L (14-59); Albumin Globulin Ratio 0.8; Albumin Level 3.2 g/dL (3.4-5.0); Alkaline Phosphatase 105 U/L (46-116); Anion Gap 11.4; Aspartate Amino Transferase 19 U/L (15-37); Blood Urea Nitrogen 20.0 mg/dL (7.0-18.0); Calcium 9.0 mg/dL (8.5-10.1); Carbon Dioxide 29.7 mmol/L (21.0-32.0); Chloride 101 mmol/L (98-107); Estimated GFR (African America 56 (>=60 mL/min/1.73m^2); Estimated GFR (Non-African Ame 46 (>=60 mL/min/1.73m^2); Globulin 3.9 g/dL; Glucose 88 mg/dL (74-106); Potassium 4.1 mmol/L (3.5-5.1); Sodium 138 mmol/L (136-145); Total Protein 7.1 g/dL (6.4-8.2)
[2024-09-14] VITALS (17 sets, daily range): BP systolic 97–136; BP diastolic 70–85; PULSE 77–86; O2SAT 95–99
== END 2024-09-14 06:15 | disposition home or self-care (01) ==
PROVIDERS: Emergency Provider Emergency Medicine; PCP Nurse Practitioner Family
DX: R06.09 Other forms of dyspnea (principal); R42 Dizziness and giddiness; R91.8 Other nonspecific abnormal finding of lung field; R07.89 Other chest pain; R06.02 Shortness of breath
CPT/HCPCS: 36415; 70450; 71046; 71275; 80053; 81003; 84484; 85025; 85378; 93005; 99285; Q9967

== ENCOUNTER 2024-10-14 07:16 | Emergency (ER) | payer MEDICAID, SELFPAY ==
[2024-10-14 07:20] VITALS: BP 108/64; PULSE 90; TEMP 36.5; O2SAT 98; BMI 38.7
--- OUTSIDE RECORDS SUMMARY | 2024-10-14 07:27 | XMS_ITS | CCD ---
Author Organization [facility] Care Team Providers Care Grinder Set Up Operator Thread Name Role Phone DIPESH MORRIS Unavailable Unavailable TAMARA CALERO Unavailable Unavailable Em RADIO RECORDER-WIRE MILL OPERATOR, Debo Unavailable Dennis Sarmiento MD Unavailable Belcastro RADIO RECORDER-WIRE MILL OPERATOR, Marcella Unavailable [phone] Tamara Calero Unavailable Dennis Sarmiento MD Unavailable Belcastro RADIO RECORDER-WIRE MILL OPERATOR, Marcella Unavailable NICKYC, DR SHAH Primary Care [...] Consulting Unavailable Dennis Sarmiento MD Unavailable Belcastro RADIO RECORDER-WIRE MILL OPERATOR, Marcella Unavailable Abdias, DO Tamara Primary Care Provider DO Antolin Abarca Emergency Provider MD Geo Loomis Admit Provider MD Geo Loomis Attending Provider Abdias, DO Tamara Primary Care Provider DO Antolin Abarca Emergency Provider MD Geo Loomis Admit Provider [phone] MD Geo Loomis Attending Provider [phone] JOHAN STEPHENS Referring Unavailable PROVIDER, UNKNOWN Admitting Unavailable PROVIDER, UNKNOWN Attending Unavailable DENNIS NICHOLE Referring Unavailable PROVIDER, UNKNOWN Admitting Unavailable PROVIDER, UNKNOWN Attending Unavailable PATIENT, SELF Referring Unavailable PROVIDER, UNKNOWN Admitting Unavailable PROVIDER, UNKNOWN Attending Unavailable Chloé WILSONWIRE MILL OPERATOR, Marcella Unavailable [phone] Priyanka Lemon Unavailable Abdias, DO Seayew Primary Care Provider MD Vivek Antoine Attending Provider Abdias, Tamara Primary Care Provider [phone] MD Vivek Antoine Attending Provider FARNAZ Mandel Primary Care Provider [phone] Noah [facility] Junie Walker Emergency Provider [phone] Abdias, DO Posada Primary Care Provider MD Vivek Antoine Attending Provider STEPHANIE WEBSTER Attending Unavailable TAMARA CALERO Referring [...] Attending Provider MD Art Pa Emergency Provider [phone] MD Jean Paul Loomismi Admit Provider [phone] MD Geo Loomis Attending Provider DO Abdias Tamara Primary Care Provider MD Vivek Antoine Attending Provider [phone] Josette Gore Primary Care Provider Abdias JACKSON Tamara Primary Care Provider [phone] Vivek Antoine MD Attending Provider [phone] Tamara Calero DO A Primary Care Provider Abdias JACKSON, Tamara Primary Care Provider Vivek Antoine MD Attending Provider [phone] Tequila MCKINNEY-C, Josette Springer Primary Care Provider [phone] Cole Cast DO Emergency Provider Vivek Antoine MD Admit Provider Josette Gore Primary Care Provider Vivek Antoine MD Attending Provider Abdias JACKSON Tamara Primary Care Provider Abidas JACKSON, Tamara Primary Care Provider Rosendo KELSEY, Heladio Villalobos Emergency Provider [phone] CORNELL RODRIGUEZ Attending Unavailable PAT CALLAHAN Referring Unavailable ERASTO DAWSON Admitting Unavailable SHREYAS RODRIGUEZ Attending Unavailable VIRA HEATH Referring Unavailable VIRA HEATH Referring Unavailable CORNELL RODRIGUEZ Attending Unavailable BENITO PRADO Attending Unavailable Josette Mandel Primary Care Unavailable Arash, Vivek Admitting Unavailab le Arash, Vivek Attending Unavailab Heladio Klein Jr Admitting Unavailable Heladio Robbins Jr Attending Unavailable Josette Mandel Primary Care Unavailable Arash, Vivek Admitting Unavailab le Arash, Vivek Attending Unavailab Tamara Cantu Primary Care Unavailable Josette Mandel Primary Care Unavailable VladislavZuleymaGeo Admitting Unavailable Arash, Vivek Attending Unavailab le Allergies Allergy Classification Reported Allergen(s) Allergy Type Date of Onset Reaction(s) Facility (20 sources) Ciprofloxacin; Translations: [CIPROFLOXACIN] Drug Allergy 11-02-19 13 [facility] Work Phone: Comment on above: Patient not fully ce rtain of reaction but believes it caused flu-like symptoms (20 sources) metroNIDAZOLE; Translations: [METRONIDAZOLE] Drug Allergy 10-13-19 19 Edema, Other (See Comments) [facility] Other Comment on above: Patient not sure of reaction but states a previous physician informed her she had reacted to it. (20 sources) Penicillins; Translations: [PENICILLINS] Propensity to adverse reactions to drug 10-13-19 19 Edema, [facility] (20 sources) Penicillin G; Translations: [PENICILLIN G] Drug Allergy 10-13-19 19 swelling, Facial Swelling [facility] (1 source) Ciprofloxacin Drug Allergy 10-06-19 20 [facility] (1 source) metroNIDAZOLE Drug Allergy 10-06-19 20 [facility] (1 source) Penicillin Drug Allergy 10-06-19 [facility] (16 sources) Quinolones (Antibiotic); Translations: [Quinolones] Propensity to adverse reactions 05-11-19 23 Fatigued [facility] (8 sources) ciprofibrate; Translations: [CIPROFIBRATE] Drug Allergy 10-13-19 19 Facial Swelling [facility] (1 source) Ciprofloxacin Drug Allergy 07-07-19 [facility] (1 source) metroNIDAZOLE Drug Allergy 07-07-19 [facility] (1 source) Penicillin Drug Allergy 07-07-19 [facility] Medications Current Medications Medication Drug Class(es) [...] SUSHANT BRISENO take 1 capsule by mo [facility] three times daily hydrOXYzine Pamoate [...] Start: 04-24-2023 take 1 capsule by mo [facility] once daily Levomilnacipran Active 40 MG PO [...] 2022 10:25am take 1 capsule by mo [facility] every twenty-four hours in the morning levomilnacipran [...] 2:58pm Start: 11-08-2023 [facility] daily as needed for anxiety [...] m g/0.1 mL nasal liquid Use 1 [place] in one nostril (alternate sides) as needed [...] hours as needed for pain Hydrocodone-Acetam inophen ([place]) 5-325 mg tablet Discontinued 1 TAB PO [...] April 02, 2021 May 11, 2022 1:32am [id number] 200 actuat albuterol 0.09 mg/actuat metered dose [...] Start: 12-20-2022 take 1 capsule by mo [facility] every twelve hours Doxycycline Monohydrate 100 MG [...] day; Note: Source Status: Taking; [facility]: 07-31-2021 take 200 mg by mouth [...] neoplasm] Episodic Other aftercare (1 source) Other long term acute care registered nurse (current) drug therapy; Translations: [OTH HALFWAY CURRENT DRUG THERAPY] Onset: 3 Episodic Other aftercare (1 source) intermediate card tender (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; Translations: [NURSE TRANSITION CURRENT USE OF INSULIN] Onset: 3 Episodic [...] 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 Unclassified (1 source) NO SHOW Unclassified (2 [...] organism] Onset: 04-16-2021 Resolved: 05-29-2021 05-29-2021 Episodic Suicide and intentional self-inflicted injury (20 sources) Suicidal thoughts; Translations: [Suicidal ideations] Onset: 07-06-2024 05-11-2022 Episodic Unclassified (1 source) COUGH, UNSPECIFIED; Translations: [COUGH, UNSPECIFIED] Onset: 03-13-2022 Unclassified (1 source) CONTACT W/AND (SUSP) EXPOS COVID-19; Translations: [CONTACT W/AND (SUSP) EXPOS COVID-19] Onset: 06-14-2021 Unclassified (6 sources) Onset: 06-22-2022 Resolved: 07-03-2023 07-03-2023 Viral infection (2 sources) COVID-19; Translations: [COVID-19] Onset: 03-15-2022 Results Test Name Value Interpretation Reference Range Facility Office Visiton 08-06-2024 Follow-up visit [id number] Shahla Arias 1980 F Date Provider Department Center 08/06/2024 CORNELL SCOTT [facility] [place] Family History Problem Relation Age of Onset Hypertension Mother Cancer Mother Stroke Mother Family Status - Relation Status Age at Mother Father Alive Sister Alive Brother Alive Level of Service:69608 [place] OFFICE/OUTPATIENT ESTABLISHED HIGH MDM 40 MIN Normal [facility] Orders Onlyon 08-06-2024 Orders Only [id number] Shahla Arias 1980 F Date Provider Department Center 08/06/2024 MAIA SHAW [facility] [place] Family History Problem Relation Age of Onset Hypertension Mother Cancer Mother Stroke Mother Family Status - Relation Status Age at Mother Father Alive Sister Alive Brother Alive Normal [facility] Alanine aminotransferase [En zymatic activity/volume] in Serum or PlasmaOrdered By: Heladio Robbins on 07-06-2024 ALT [Catalytic activity/Vol] Alanine aminotransferase [Enzymatic activity/volume] in Serum or Plasma 7-52 [facility] Albumin [Mass/volume] in Ser um or Plasma by Bromocresol green (BCG) dye binding methoOrdered By: Heladio Robbins on 07-06-2024 Albumin BCG dye [Mass/Vol] Albumin [Mass/volume] in Serum or Plasma by Bromocresol green (BCG) dye binding metho 3.5-5.7 [facility] Alkaline phosphatase [Enzyma tic activity/volume] in Serum or PlasmaOrdered By: Heladio Robbins on 07-06-2024 ALP [Catalytic activity/Vol] Alkaline phosphatase [Enzymatic activity/volume] in Serum or Plasma 34-104 [facility] Amphetamine Screen Ql (U)Ord ered By: Heladio Robbins on 07-06-2024 Amphetamines Ql (U) Amphetamines screen Negativ e [facility] Appearance of UrineOrdered B y: Heladio Robbins on 07-06-2024 Appearance (U) Urine appearance Clear [facility] Aspartate aminotransferase [ Enzymatic activity/volume] in Serum or PlasmaOrdered By: Heladio Robbins on 07-06-2024 AST [Catalytic activity/Vol] Aspartate aminotransferase [Enzymatic activity/volume] in Serum or Plasma 13-39 [facility] Barbiturates [Presence] in U rine by Screen methodOrdered By: Heladio Robbins on 07-06-2024 Barbiturates Screen Ql (U) Barbiturates [Presence] in Urine by Screen method Negative [facility] Basophils Auto (Bld) [#/Vol] Ordered By: Heladio Robbins on 07-06-2024 Basophils (Bld) [#/Vol] Automated basoph il count 0.0-0.2 [facility] Basophils/100 WBC Auto (Bld) Ordered By: Heladio Robbins on 07-06-2024 Basophils/100 WBC (Bld) Automated basophil % . [facility] Benzodiazepines Screen Ql (U )Ordered By: Heladio Robbins on 07-06-2024 Benzodiazepines Ql (U) Benzodiazepines [Presence] in Urine by Screen method Negative [facility] Benzoylecgonine [Presence] i n Urine by Screen methodOrdered By: Heladio Robbins on 07-06-2024 Benzoylecgonine Screen Ql (U) Benzoylecgonine [Presence] in Urine by Screen method Negative [facility] Bilirubin Test strip Ql (U)O rdered By: Heladio Robbins on 07-06-2024 Bilirubin Ql (U) Bilirubin.total [Presence] in Urine by Test strip Negative [facility] Bilirubin.total [Mass/volume ] in Serum or PlasmaOrdered By: Heladio Robbins on 07-06-2024 Bilirubin [Mass/Vol] Bilirubin.total [Mass/volume] in Serum or Plasma 0.3-1.0 [facility] Calcium [Mass/volume] in Ser um or PlasmaOrdered By: Heladio Robbins on 07-06-2024 Calcium [Mass/Vol] Calcium [Mass/volume ] in Serum or Plasma 8.6-10.3 [facility] Cannabinoids [Presence] in U rine by Screen methodOrdered By: Heladio Robbins on 07-06-2024 Cannabinoids Screen Ql (U) Cannabinoids [Presence] in Urine by Screen method Negative [facility] Comment on above: These are unconfirme d [...] l [Moles/volume] in Serum or Plasma 21.0-31.0 [facility] Chloride [Moles/volume] in S monse or PlasmaOrdered By: Heladio Robbins on 07-06-2024 Chloride [Moles/Vol] Chloride [Moles/volume] in Serum or Plasma 98-107 [facility] Color Auto (U)Ordered By: Bin Robbins on 07-06-2024 Color (U) Color of Urine by Auto Yellow Fi [facility] Complete Blood Count Auto Di ffon 07-06-2024 Basophils (Bld) [#/Vol] 0.1 10*3/uL Normal 0.0-0.2 The [facility] Comment on above: Result Comment: PERF ORMED BY: [place] [address] PATHOLOGIST SLAB STRIPPER STEPHANIE FAUSTIN M.D. Performed By: #### C MP, ETOH, CBC #### [address] Basophils/100 WBC (Bld) 0.5 % Normal . T becky [facility] Comment on above: Performed By: #### C MP, ETOH, CBC #### [address] Eosinophils (Bld) [#/Vol] 0.0 10*3/uL Normal 0.0-0.45 The [facility] Comment on above: Performed By: #### C MP, ETOH, CBC #### [address] Eosinophils/100 WBC (Bld) 0.1 % Normal . The [facility] Comment on above: Performed By: #### C MP, ETOH, CBC #### [address] Erythrocyte distribution width (RBC) [Ratio] 16.4 % High 11.9-15.3 The [facility] Comment on above: Performed By: #### C MP, ETOH, CBC #### [address] Hematocrit (Bld) [Volume fraction] 34.8 % Normal 34.0-46.4 The [facility] Comment on above: Performed By: #### C MP, ETOH, CBC #### [address] Hemoglobin (Bld) [Mass/Vol] 11.7 g/dL Low 11.8-15.4 The [facility] Comment on above: Performed By: #### C MP, ETOH, CBC #### [address] Lymphocytes (Bld) [#/Vol] 2.1 10*3/uL Normal 1.00-4.8 The [facility] Comment on above: Performed By: #### C MP, ETOH, CBC #### [address] Lymphocytes/100 WBC (Bld) 13.5 % Normal . [facility] Comment on above: Performed By: #### C MP, ETOH, CBC #### [address] MCH (RBC) [Entitic mass] 29.8 pg Normal 24.7-34.3 The [facility] Comment on above: Performed By: #### C MP, ETOH, CBC #### [address] MCV (RBC) [Entitic vol] 88.7 fL Normal 80-100 [facility] Comment on above: Performed By: #### C MP, ETOH, CBC #### [address] Mean Corpuscular HGB Conc 33.5 g/dL Normal 32.0-35.0 The [facility] Comment on above: Performed By: #### C MP, ETOH, CBC #### [place] [address] [place] Monocytes (Bld) [#/Vol] 1.0 10*3/uL High 0.0-0.8 The [facility] Comment on above: Performed By: #### C MP, ETOH, CBC #### [address] Monocytes/100 WBC (Bld) 18.40 % Normal 0.00-20.00 [facility] Comment on above: Performed By: #### C MP, ETOH, CBC #### [place] [address] [place] Monocytes/100 WBC (Bld) 6.2 % Normal . [facility] Comment on above: Performed By: #### C MP, ETOH, CBC #### [address] Neutrophils (Bld) [#/Vol] 12.2 10*3/uL High 1.8-7.7 The [facility] Comment on above: Performed By: #### C MP, ETOH, CBC #### [address] Neutrophils/100 WBC (Bld) 79.7 % Normal . The [facility] Comment on above: Performed By: #### C MP, ETOH, CBC #### [facility] [address] NRBC% 0.0 /100{WBC} Normal 0-0.5 The [facility] Comment on above: Performed By: #### C MP, ETOH, CBC #### [address] Platelet mean volume (Bld) [Entitic vol] 7.4 fL Normal 6.3-10.7 The [facility] Comment on above: Performed By: #### C MP, ETOH, CBC #### [address] Platelets (Bld) [#/Vol] 330 10*3/uL Normal 150-450 The [facility] Comment on above: Performed By: #### C MP, ETOH, CBC #### [address] RBC (Bld) [#/Vol] 3.92 10*6/uL Normal 3.60-5.00 The [facility] Comment on above: Performed By: #### C MP, ETOH, CBC #### [address] WBC (Bld) [#/Vol] 15.3 10*3/uL High 3.8-11.6 The [facility] Comment on above: Performed By: #### C MP, ETOH, CBC #### [address] Comprehensive Metabolic Pane seng 07-06-2024 Albumin [Mass/Vol] 3.8 g/dL Normal 3.5-5.7 The [facility] Comment on above: Performed By: #### C MP, ETOH, CBC #### [address] Albumin/Globulin [Mass ratio] 1.3 {ratio} Normal The [facility] Comment on above: Performed By: #### C MP, ETOH, CBC #### [facility] [address] ALP [Catalytic activity/Vol] 72 U/L Normal 34-104 The [facility] Comment on above: Performed By: #### C MP, ETOH, CBC #### [facility] [address] [place] [address] [place] ALT [Catalytic activity/Vol] 14 U/L Normal 7-52 The [facility] Comment on above: Performed By: #### C MP, ETOH, CBC #### [facility] [address] Anion gap [Moles/Vol] 12.3 mmol/L Normal 6.0-15.[address] [facility] Comment on above: Performed By: #### C MP, ETOH, CBC #### [facility] [address] AST [Catalytic activity/Vol] 13 U/L Normal 13-39 The [facility] Comment on above: Performed By: #### C MP, ETOH, CBC #### [facility] [address] [place] [address] [place] Bilirubin [Mass/Vol] 0.4 mg/dL Normal 0.3-1.0 The [facility] Comment on above: Performed By: #### C MP, ETOH, CBC #### [facility] [address] [place] [address] [place] Calcium [Mass/Vol] 9.4 mg/dL Normal 8.6-10.3 The [facility] Comment on above: Performed By: #### C MP, ETOH, CBC #### [facility] [address] [place] [address] [place] Chloride [Moles/Vol] 102 mmol/L Normal 98-107 The [facility] Comment on above: Performed By: #### C MP, ETOH, CBC #### [facility] [address] [place] [address] [place] CO2 [Moles/Vol] 24.5 mmol/L Normal 21.0-31.0 The [facility] Comment on above: Performed By: #### C MP, ETOH, CBC #### [facility] [address] Creatinine [Mass/Vol] 0.86 mg/dL Normal 0.60-1.20 The [facility] Comment on above: Performed By: #### C MP, ETOH, CBC #### [place] [address] [place] Creatinine Clr Calc Pharmacy 102.22 Normal The [facility] Comment on above: Result Comment: PERF ORMED BY: [place] [address] PATHOLOGIST SLAB STRIPPER STEPHANIE FAUSTIN M.D. Performed By: #### C MP, ETOH, CBC #### [address] GFR/1.73 sq M.predicted MDRD (S/P/Bld) [Vol rate/Area] mL/min/{1.73_m2} Normal The [facility] Comment on above: Performed By: #### C MP, ETOH, CBC #### [place] [address] [place] Globulin (S) [Mass/Vol] 2.9 g/dL Normal T he [facility] Comment on above: Performed By: #### C MP, ETOH, CBC #### [address] Glucose [Mass/Vol] 88 mg/dL Normal 70-100 The [facility] Comment on above: Result Comment: [place] Glucose Reference Range is dependent on time and content of last meal. Glucose of more than 200 mg/dL in a nonstressed, ambulatory subject supports the diagnosis of Diabetes Mellitus. ADA recommended reference range Performed By: #### C MP, ETOH, CBC #### [address] Potassium [Moles/Vol] 3.8 mmol/L Normal 3.5-5.1 The [facility] Comment on above: Performed By: #### C MP, ETOH, CBC #### [place] [address] Protein [Mass/Vol] 6.7 g/dL Normal 6.4-8.9 The [facility] Comment on above: Performed By: #### C MP, ETOH, CBC #### [address] Sodium [Moles/Vol] 135 mmol/L Low 136-145 The [facility] Comment on above: Performed By: #### C MP, ETOH, CBC #### [address] Urea nitrogen [Mass/Vol] 20 mg/dL Normal 7-25 The [facility] Comment on above: Performed By: #### C MP, ETOH, CBC #### [address] Creatinine [Mass/volume] in Serum or PlasmaOrdered By: Heladio Robbins on 07-06-2024 Creatinine [Mass/Vol] Creatinine [Mass/volume] in Serum or Plasma 0.60-1.20 [facility] Drug Screen,Urineon 07-07-19 25 Amphetamine Screen,Urine Negative Normal Negative The [facility] Comment on above: Performed By: #### C MP, ETOH, CBC #### [address] Barbiturate Screen,Urine Negative Normal Negative The [facility] Comment on above: Performed By: #### C MP, ETOH, CBC #### [place] [address] [place] Benzodiazepines Screen,Urine Negative Normal Negative The [facility] Comment on above: Performed By: #### C MP, ETOH, CBC #### [place] [address] [place] Cannabinoid Screen,Urine Negative Normal Negative The [facility] Comment on above: Result Comment: Thes e are unconfirmed results and should not be used for legal purposes. Drug Cut-Off Concentration: AMPH 1000 ng/mL SANDEEP 200 ng/mL JERSON 200 ng/mL COCM 300 ng/mL OP 300 ng/mL PCP 25 ng/mL THC 20 ng/mL PERFORMED BY: [address] [address] PATHOLOGIST SLAB STRIPPER STEPHANIE FAUSTIN M.D. Performed By: #### C MP, ETOH, CBC #### [facility] [address] Cocaine Screen,Urine Negative Normal Negative The [facility] Comment on above: Performed By: #### C MP, ETOH, CBC #### [facility] [address] Opiate Screen,Urine Negative Normal Negative The [facility] Comment on above: Performed By: #### C MP, ETOH, CBC #### [facility] [address] Phencyclidine Screen,Urine Negative Normal Negative The [facility] Comment on above: Performed By: #### C MP, ETOH, CBC #### [facility] [address] Eosinophils Auto (Bld) [#/Vo l]Ordered By: Heladio Robbins on 07-06-2024 Eosinophils (Bld) [#/Vol] Automated eosinophil count 0.0-0.45 [facility] Eosinophils/100 WBC Auto (Bl d)Ordered By: Heladio Robbins on 07-06-2024 Eosinophils/100 WBC (Bld) Automated eosinophil % . [facility] Erythrocyte distribution wid th Auto (RBC) [Ratio]Ordered By: Heladio Robbins on 07-06-2024 Erythrocyte distribution width (RBC) [Ratio] Erythrocyte distribution width [Ratio] by Automated count High 11.9-15.3 [facility] Ethanol [Mass/volume] in Ser um or PlasmaOrdered By: Heladio Robbins on 07-06-2024 Ethanol [Mass/Vol] Ethanol [Mass/volume ] in Serum or Plasma [facility] Ethyl Alcohol Profileon Ethanol [Mass/Vol] 126 mg/dL Normal The [facility] Comment on above: Performed By: #### C MP, ETOH, CBC #### [facility] [address] Percent Ethanol 0.126 % Normal The [facility] Comment on above: Result Comment: PERF ORMED BY: [place] [address] PATHOLOGIST SLAB STRIPPER STEPHANIE FAUSTIN M.D. Performed By: #### C MP, ETOH, CBC #### [facility] [address] [address] [place], [place] [id number] [facility] Globulin Calc (S) [Mass/Vol] Ordered By: Heladio Robbins on 07-06-2024 Globulin (S) [Mass/Vol] Serum globulin measurement by calculation (mass/volume) [facility] Glucose [Mass/volume] in Ser um or PlasmaOrdered By: Heladio Robbins on 07-06-2024 Glucose [Mass/Vol] Glucose [Mass/volume ] in Serum or Plasma 70-100 [facility] Comment on above: ADA recommended refe rence rangeRandom Glucose Reference Range is dependent on time and content of last meal. Glucose of more than 200 mg/dL in a nonstressed, ambulatory subject supports the diagnosis of Diabetes Mellitus. Glucose [Mass/volume] in Uri ne by Test stripOrdered By: Heladio Robbins on 07-06-2024 Glucose Test strip (U) [Mass/Vol] Glucose [Mass/volume] in Urine by Test strip Normal [facility] HCG ( test) IA.rapi d Ql (U)Ordered By: Heladio Robbins on 07-06-2024 HCG ( test) Ql (U) Urine human chorionic gonadotropin (hCG) detection by immunoassay [facility] HCG,Urineon 07-06-2024 Beta HCG ( test) Ql (U) Negative Normal [facility] Comment on above: Order Comment: Name Collection Type:: Clean-Voided Midstream Result Comment: PERF ORMED BY: [place] [address] PATHOLOGIST [employer] STEPHANIE FAUSTIN M.D. Performed By: #### C MP, ETOH, CBC #### [facility] [address] [place], [place] [id number] [facility] Hematocrit Auto (Bld) [Volum e fraction]Ordered By: Heladio Robbins on 07-06-2024 Hematocrit (Bld) [Volume fraction] Hematocrit [Volume Fraction] of Blood by Automated count 34.0-46.4 [facility] Hemoglobin Test strip Ql (U) Ordered By: Heladio Robbins on 07-06-2024 Hemoglobin Ql (U) Hemoglobin [Presence ] in Urine by Test strip Negative [facility] Hemoglobin [Mass/volume] in BloodOrdered By: Heladio Robbins on 07-06-2024 Hemoglobin (Bld) [Mass/Vol] Hemoglobin [Mass/volume] in Blood Low 11.8-15.4 [facility] Ketones Test strip Ql (U)Ord ered By: Heladio Robbins on 07-06-2024 Ketones Ql (U) Ketones [Presence] i n Urine by Test strip Negative [facility] Leukocyte esterase [Presence ] in Urine by Test stripOrdered By: Heladio Robbins on 07-06-2024 Leukocyte esterase Test strip Ql (U) Leukocyte esterase [Presence] in Urine by Test strip Negative [facility] Leukocytes [#/volume] correc hemalatha for nucleated erythrocytes in Blood by Automated counOrdered By: Heladio Robbins on 07-06-2024 WBC corrected for nucl RBC Auto (Bld) [#/Vol] Leukocytes [#/volume] corrected for nucleated erythrocytes in Blood by Automated coun High 3.8-11.6 [facility] Lymphocytes Auto (Bld) [#/Vo l]Ordered By: Heladio Robbins on 07-06-2024 Lymphocytes (Bld) [#/Vol] Lymphocytes [#/volume] in Blood by Automated count 1.00-4.8 [facility] Lymphocytes/100 WBC Auto (Bl d)Ordered By: Heladio Robbins on 07-06-2024 Lymphocytes/100 WBC (Bld) Lymphocytes/100 leukocytes in Blood by Automated count . [facility] MCH Auto (RBC) [Entitic mass ]Ordered By: Heladio Robbins on 07-06-2024 MCH (RBC) [Entitic mass] MCH [Entitic mass] by Automated count 24.7-34.3 [facility] MCHC Auto (RBC) [Mass/Vol]Or dered By: Heladio Robbins on 07-06-2024 MCHC (RBC) [Mass/Vol] MCHC [Mass/volume] by Automated count 32.0-35.0 [facility] MCV Auto (RBC) [Entitic vol] Ordered By: Heladio Robbins on 07-06-2024 MCV (RBC) [Entitic vol] MCV [Entitic vol ume] by Automated count 80-100 [facility] Monocyte distribution width [Entitic volume] in Blood by AutomatedOrdered By: Heladio Robbins on 07-06-2024 Monocyte distribution width Auto (Bld) [Entitic vol] Monocyte distribution width [Entitic volume] in Blood by Automated 0.00-20.00 [facility] Monocytes Auto (Bld) [#/Vol] Ordered By: Heladio Robbins on 07-06-2024 Monocytes (Bld) [#/Vol] Automated blood monocyte count High 0.0-0.8 [facility] Monocytes/100 WBC Auto (Bld) Ordered By: Heladio Robbins on 07-06-2024 Monocytes/100 WBC (Bld) Automated monocyte % . [facility] Neutrophils Auto (Bld) [#/Vo l]Ordered By: Heladio Robbins on 07-06-2024 Neutrophils (Bld) [#/Vol] Neutrophils [#/volume] in Blood by Automated count High 1.8-7.7 [facility] Neutrophils/100 WBC Auto (Bl d)Ordered By: Heladio Robbins on 07-06-2024 Neutrophils/100 WBC (Bld) Automated neutrophil % . [facility] Nitrite Test strip Ql (U)Ord ered By: Heladio Robbins on 07-06-2024 Nitrite Ql (U) Nitrite [Presence] i n Urine by Test strip Negative [facility] No Panel InformationOrdered By: Heladio Robbins on 07-06-2024 Estimated GFR (CKD-EPI) > 60.0 mL/Min [facility] Creatinine Clearance (Chem 102.22 [facility] Nucleated erythrocytes [Pres ence] in Blood by Automated countOrdered By: Heladio Robbins on 07-06-2024 Nucleated RBC Auto Ql (Bld) Nucleated erythrocytes [Presence] in Blood by Automated count 0-0.5 [facility] Opiates [Presence] in Urine by Screen methodOrdered By: Heladio Robbins on 07-06-2024 Opiates Screen Ql (U) Opiates [Presence] in Urine by Screen method Negative [facility] Phencyclidine Screen Ql (U)O rdered By: Heladio Robbins on 07-06-2024 Phencyclidine Ql (U) Phencyclidine [Presence] in Urine by Screen method Negative [facility] Platelet mean volume Auto (B ld) [Entitic vol]Ordered By: Heladio Robbins on 07-06-2024 Platelet mean volume (Bld) [Entitic vol] Platelet mean volume [Entitic volume] in Blood by Automated count 6.3-10.7 [facility] Platelets Auto (Bld) [#/Vol] Ordered By: Heladio Robbins on 07-06-2024 Platelets (Bld) [#/Vol] Platelets [#/vol ume] in Blood by Automated count 150-450 [facility] Potassium [Moles/volume] in Serum or PlasmaOrdered By: Heladio Robbins on 07-06-2024 Potassium [Moles/Vol] Potassium [Moles/volume] in Serum or Plasma 3.5-5.1 [facility] Protein Test strip (U) [Mass /Vol]Ordered By: Heladio Robbins on 07-06-2024 Protein (U) [Mass/Vol] Protein [Mass/vol ume] in Urine by Test strip Negative [facility] Protein [Mass/volume] in Ser um or PlasmaOrdered By: Heladio Robbins on 07-06-2024 Protein [Mass/Vol] Protein [Mass/volume ] in Serum or Plasma 6.4-8.9 [facility] RBC Auto (Bld) [#/Vol]Ordere d By: Heladio Robbins on 07-06-2024 RBC (Bld) [#/Vol] Erythrocytes [#/volume] in Blood by Automated count 3.60-5.00 [facility] Serum or plasma albumin/glob ulin mass ratioOrdered By: Heladio Robbins on 07-06-2024 Albumin/Globulin [Mass ratio] Serum or plasma albumin/globulin mass ratio [facility] Serum or plasma anion gap de terminationOrdered By: Heladio Robbins on 07-06-2024 Anion gap [Moles/Vol] Serum or plasma an ion gap determination 6.0-15.0 [facility] Sodium [Moles/volume] in Ser um or PlasmaOrdered By: Heladio Robbins on 07-06-2024 Sodium [Moles/Vol] Sodium [Moles/volume ] in Serum or Plasma Low 136-145 [facility] Specific gravity Test strip (U) [Rel density]Ordered By: Heladio Robbins on 07-06-2024 Specific gravity (U) [Rel density] Specific gravity of Urine by Test strip 1.001-1.030 [facility] Urea nitrogen [Mass/volume] in Serum or PlasmaOrdered By: Heladio Robbins on 07-06-2024 Urea nitrogen [Mass/Vol] Urea nitrogen [Mass/volume] in Serum or Plasma 09-27 [facility] Urinalysison 07-06-2024 Appearance (U) Clear Normal Clear [facility] Comment on above: Order Comment: Name Collection Type:: Clean-Voided Midstream Performed By: #### C MP, ETOH, CBC #### [facility] [address] [place] [address] [place] Bilirubin,Urine Negative Normal Negative The [facility] Comment on above: Order Comment: Name Collection Type:: Clean-Voided Midstream Performed By: #### C MP, ETOH, CBC #### [facility] [address] [place] [id number] [place] Color (U) Colorless Normal Yellow [facility] Comment on above: Order Comment: Name Collection Type:: Clean-Voided Midstream Performed By: #### C MP, ETOH, CBC #### [facility] [address] [place] [id number] [place] Glucose Ql (U) Normal Normal Normal [facility] Comment on above: Order Comment: Name Collection Type:: Clean-Voided Midstream Performed By: #### C MP, ETOH, CBC #### [place] [id number] [place] Ketones Ql (U) Negative Normal Negative [facility] Comment on above: Order Comment: Name Collection Type:: Clean-Voided Midstream Performed By: #### C MP, ETOH, CBC #### [facility] [address] [place] [id number] [place] Leukocyte esterase Test strip Ql (U) Negative Normal Negative [facility] Comment on above: Order Comment: Name Collection Type:: Clean-Voided Midstream Performed By: #### C MP, ETOH, CBC #### [facility] [address] [place] [id number] [place] Nitrite,Urine Negative Normal Negative The [facility] Comment on above: Order Comment: Name Collection Type:: Clean-Voided Midstream Performed By: #### C MP, ETOH, CBC #### [address] Occult Blood,Urine Negative Normal Negative The [facility] Comment on above: Order Comment: Name Collection Type:: Clean-Voided Midstream Performed By: #### C MP, ETOH, CBC #### [address] pH (U) 5.5 [pH] Normal 5.0-9.0 [facility] Comment on above: Order Comment: Name Collection Type:: Clean-Voided Midstream Performed By: #### C MP, ETOH, CBC #### [address] Protein,Urine Negative Normal Negative [facility] Comment on above: Order Comment: Name Collection Type:: Clean-Voided Midstream Performed By: #### C MP, ETOH, CBC #### [address] Specificy [place],Urine 1.004 Normal 1.001-1.030 [facility] Comment on above: Order Comment: Name Collection Type:: Clean-Voided Midstream Performed By: #### C MP, ETOH, CBC #### [address] Urobilinogen,Urine Normal Normal Normal The [facility] Comment on above: Order Comment: Name Collection Type:: Clean-Voided Midstream Performed By: #### C MP, ETOH, CBC #### [address] Urobilinogen Test strip (U) [Mass/Vol]Ordered By: Heladio Robbins on 07-06-2024 Urobilinogen (U) [Mass/Vol] Urobilinogen [Mass/volume] in Urine by Test strip Normal [facility] WBC Auto (Bld) [#/Vol]Ordere d By: Heladio Robbins on 07-06-2024 WBC (Bld) [#/Vol] Leukocytes [#/volume ] in Blood by Automated count High 3.8-11.6 [facility] pH Test strip (U)Ordered By: Heladio Robbins on 07-06-2024 pH (U) pH of Urine by Test strip 5.0-9.0 [facility] ECG 12 lead ECGon 06-12-2024 ECG 12 lead ECG [facility] Main [place] [address] [place] [id number] Electrocardiograph Report Signed Patient: Shahla Arias MR#: [id number] : 1980 Acct:[id number] Age/Sex: 44 / F ADM Date: 06/11/24 Loc: Room: [address] [place] [address] Type: ADM IN Attending Dr: Vivek Antoine [...] QT Abnormal ECG Confirmed by Kayla Herndon ([id number]) on 06/12/2024 10:51:46 AM Referred By: Electronically Signed By: Kayla Herndon Transcribed By: MUS Signed By Kayla Herndon MD 5 1051 Normal [facility] Alanine aminotransferase [En zymatic activity/volume] in Serum or PlasmaOrdered By: Cole Cast on 06-11-2024 ALT [Catalytic activity/Vol] Alanine aminotransferase [Enzymatic activity/volume] in Serum or Plasma [facility] Albumin [Mass/volume] in Ser um or Plasma by Bromocresol green (BCG) dye binding methoOrdered By: Cole Cast on 06-11-2024 Albumin BCG dye [Mass/Vol] Albumin [Mass/volume] in Serum or Plasma by Bromocresol green (BCG) dye binding metho 3.5-5.7 [facility] Alkaline phosphatase [Enzyma tic activity/volume] in Serum or PlasmaOrdered By: Cole Cast on 06-11-2024 ALP [Catalytic activity/Vol] Alkaline phosphatase [Enzymatic activity/volume] in Serum or Plasma 34-104 [facility] Amphetamine Screen Ql (U)Ord ered By: Cole Cast on 06-11-2024 Amphetamines Ql (U) Amphetamines screen Negativ e [facility] Appearance of UrineOrdered B y: Cole Cast on 06-11-2024 Appearance (U) Urine appearance Clear [facility] Aspartate aminotransferase [ Enzymatic activity/volume] in Serum or PlasmaOrdered By: Cole Cast on 06-11-2024 AST [Catalytic activity/Vol] Aspartate aminotransferase [Enzymatic activity/volume] in Serum or Plasma 13-39 [facility] Bacteria [Presence] in Urine by AutomatedOrdered By: Cole Cast on 06-11-2024 Bacteria Auto Ql (U) Bacteria [Presence] in Urine by Automated None Seen [facility] Barbiturates [Presence] in U rine by Screen methodOrdered By: Cole Cast on 06-11-2024 Barbiturates Screen Ql (U) Barbiturates [Presence] in Urine by Screen method Negative [facility] Basophils Auto (Bld) [#/Vol] Ordered By: Cole Cast on 06-11-2024 Basophils (Bld) [#/Vol] Automated basoph il count 0.0-0.2 [facility] Basophils/100 WBC Auto (Bld) Ordered By: Cole Cast on 06-11-2024 Basophils/100 WBC (Bld) Automated basophil % . [facility] Benzodiazepines Screen Ql (U )Ordered By: Cole Cast on 06-11-2024 Benzodiazepines Ql (U) Benzodiazepines [Presence] in Urine by Screen method Negative [facility] Benzoylecgonine [Presence] i n Urine by Screen methodOrdered By: Cole Cast on 06-11-2024 Benzoylecgonine Screen Ql (U) Benzoylecgonine [Presence] in Urine by Screen method Negative [facility] Bilirubin Test strip Ql (U)O rdered By: Cole Cast on 06-11-2024 Bilirubin Ql (U) Bilirubin.total [Presence] in Urine by Test strip Negative [facility] Bilirubin.total [Mass/volume ] in Serum or PlasmaOrdered By: Cole Cast on 06-11-2024 Bilirubin [Mass/Vol] Bilirubin.total [Mass/volume] in Serum or Plasma 0.3-1.0 [facility] Calcium [Mass/volume] in Ser um or PlasmaOrdered By: Cole Cast on 06-11-2024 Calcium [Mass/Vol] Calcium [Mass/volume ] in Serum or Plasma 8.6-10.3 [facility] Cannabinoids [Presence] in U rine by Screen methodOrdered By: Cole Cast on 06-11-2024 Cannabinoids Screen Ql (U) Cannabinoids [Presence] in Urine by Screen method Negative [facility] Comment on above: These are unconfirme d [...] l [Moles/volume] in Serum or Plasma 21.0-31.0 [facility] Chloride [Moles/volume] in S monse or PlasmaOrdered By: Cole Cast on 06-11-2024 Chloride [Moles/Vol] Chloride [Moles/volume] in Serum or Plasma 98-107 [facility] Cholesterol [Mass/volume] in Serum or PlasmaOrdered By: Vivek Antoine on 06-11-2024 Cholesterol [Mass/Vol] Cholesterol [Mass/volume] in Serum or Plasma Low 140-200 [facility] Comment on above: Chol less than 200 m g/dl low riskChol 201-239 mg/dl borderline riskChol 240 mg/dl and greater high risk Cholesterol in HDL [Mass/vol ume] in Serum or PlasmaOrdered By: Vivek Antoine on 06-11-2024 Cholesterol in HDL [Mass/Vol] Serum or plasma high density lipoprotein (HDL) cholesterol measurement 23-92 [facility] Comment on above: HDL CHOL ATP-III CLA SSIFICATION Cardiovascular RiskHDL > or equal to 60 mg/dL LOWHDL < 40 mg/dL HIGH Cholesterol in LDL Calc [Mas s/Vol]Ordered By: Vivek Antoine on 06-11-2024 Cholesterol in LDL [Mass/Vol] Cholesterol in LDL [Mass/volume] in Serum or Plasma by calculation 0-100 [facility] Comment on above: LDL ATP III CLASSIFI CATIONLDL less than 100 mg/dL OptimalLDL 100-129 mg/dL Near or above optimalLDL 130-159 mg/dL Borderline highLDL 160-189 mg/dL HighLDL greater than 189 mg/dL Very high Cholesterol in VLDL Calc [Ma ss/Vol]Ordered By: Vivek Antoine on 06-11-2024 Cholesterol in VLDL [Mass/Vol] Cholesterol in VLDL [Mass/volume] in Serum or Plasma by calculation [facility] Color Auto (U)Ordered By: Kelton Cast on 06-11-2024 Color (U) Color of Urine by Auto Yellow Fi [facility] Complete Blood Count Auto Di ffon 06-11-2024 Basophils (Bld) [#/Vol] 0.1 10*3/uL Normal 0.0-0.2 [facility] Comment on above: Result Comment: PERF ORMED BY: [place] [address] PATHOLOGIST [employer] STEPHANIE FAUSTIN M.D. Performed By: #### C MP, ETOH, CBC #### [facility] [address] [place] [address] [place] Basophils/100 WBC (Bld) 1.1 % Normal . T [facility] Comment on above: Performed By: #### C MP, ETOH, CBC #### [facility] [address] [place] [address] [place] Eosinophils (Bld) [#/Vol] 0.1 10*3/uL Normal 0.0-0.45 [facility] Comment on above: Performed By: #### C MP, ETOH, CBC #### [facility] [address] [place] [address] [place] Eosinophils/100 WBC (Bld) 0.9 % Normal . [facility] Comment on above: Performed By: #### C MP, ETOH, CBC #### [address] Erythrocyte distribution width (RBC) [Ratio] 16.0 % High 11.9-15.3 [facility] Comment on above: Performed By: #### C MP, ETOH, CBC #### [address] Hematocrit (Bld) [Volume fraction] 37.1 % Normal 34.0-46.4 [facility] Comment on above: Performed By: #### C MP, ETOH, CBC #### [address] Hemoglobin (Bld) [Mass/Vol] 12.3 g/dL Normal 11.8-15.4 [facility] Comment on above: Performed By: #### C MP, ETOH, CBC #### [address] Lymphocytes (Bld) [#/Vol] 2.6 10*3/uL Normal 1.00-4.8 [facility] Comment on above: Performed By: #### C MP, ETOH, CBC #### [address] Lymphocytes/100 WBC (Bld) 25.4 % Normal . [facility] Comment on above: Performed By: #### C MP, ETOH, CBC #### [address] MCH (RBC) [Entitic mass] 29.5 pg Normal 24.7-34.3 [facility] Comment on above: Performed By: #### C MP, ETOH, CBC #### [address] MCV (RBC) [Entitic vol] 88.8 fL Normal 80-100 T [facility] Comment on above: Performed By: #### C MP, ETOH, CBC #### [address] Mean Corpuscular HGB Conc 33.2 g/dL Normal 32.0-35.0 [facility] Comment on above: Performed By: #### C MP, ETOH, CBC #### [address] Monocytes (Bld) [#/Vol] 0.7 10*3/uL Normal 0.0-0.8 [facility] Comment on above: Performed By: #### C MP, ETOH, CBC #### [address] Monocytes/100 WBC (Bld) 18.12 % Normal 0.00-20.00 [facility] Comment on above: Performed By: #### C MP, ETOH, CBC #### [address] Monocytes/100 WBC (Bld) 7.1 % Normal . [facility] Comment on above: Performed By: #### C MP, ETOH, CBC #### [address] Neutrophils (Bld) [#/Vol] 6.7 10*3/uL Normal 1.8-7.7 [facility] Comment on above: Performed By: #### C MP, ETOH, CBC #### [address] Neutrophils/100 WBC (Bld) 65.5 % Normal . [facility] Comment on above: Performed By: #### C MP, ETOH, CBC #### [address] NRBC% 0.1 /100{WBC} Normal 0-0.5 The [facility] Comment on above: Performed By: #### C MP, ETOH, CBC #### [place] [address] [place] Platelet mean volume (Bld) [Entitic vol] 7.7 fL Normal 6.3-10.7 The [facility] [place] [facility] Comment on above: Performed By: #### C MP, ETOH, CBC #### [address] Platelets (Bld) [#/Vol] 311 10*3/uL Normal 150-450 [facility] Comment on above: Performed By: #### C MP, ETOH, CBC #### [address] RBC (Bld) [#/Vol] 4.18 10*6/uL Normal 3.60-5.00 The [facility] Comment on above: Performed By: #### C MP, ETOH, CBC #### [address] WBC (Bld) [#/Vol] 10.3 10*3/uL Normal 3.8-11.6 The [facility] Comment on above: Performed By: #### C MP, ETOH, CBC #### [address] Comprehensive Metabolic Pane seng 06-11-2024 Albumin [Mass/Vol] 4.0 g/dL Normal 3.5-5.7 The [facility] Comment on above: Performed By: #### C MP, ETOH, CBC #### [address] Albumin/Globulin [Mass ratio] 1.1 {ratio} Normal [facility] Comment on above: Performed By: #### C MP, ETOH, CBC #### [address] ALP [Catalytic activity/Vol] 84 U/L Normal 34-104 [facility] Comment on above: Performed By: #### C MP, ETOH, CBC #### [address] ALT [Catalytic activity/Vol] 22 U/L Normal 7-52 [facility] Comment on above: Performed By: #### C MP, ETOH, CBC #### [address] Anion gap [Moles/Vol] 10.9 mmol/L Normal 6.0-15.0 [facility] Comment on above: Performed By: #### C MP, ETOH, CBC #### [address] AST [Catalytic activity/Vol] 20 U/L Normal 13-39 [facility] Comment on above: Performed By: #### C MP, ETOH, CBC #### [facility] [address] Bilirubin [Mass/Vol] 0.4 mg/dL Normal 0.3-1.0 [facility] Comment on above: Performed By: #### C MP, ETOH, CBC #### [address] Calcium [Mass/Vol] 9.8 mg/dL Normal 8.6-10.3 The [facility] Comment on above: Performed By: #### C MP, ETOH, CBC #### [address] Chloride [Moles/Vol] 103 mmol/L Normal 98-107 [facility] Comment on above: Performed By: #### C MP, ETOH, CBC #### [place] [address] [place] CO2 [Moles/Vol] 29.2 mmol/L Normal 21.0-31.0 The [facility] Comment on above: Performed By: #### C MP, ETOH, CBC #### [address] Creatinine [Mass/Vol] 1.14 mg/dL Normal 0.60-1.20 [facility] Comment on above: Performed By: #### C MP, ETOH, CBC #### [place] [address] [place] Creatinine Clr Calc Pharmacy 76.30 Normal [facility] Comment on above: Result Comment: PERF ORMED BY: [place] [address] PATHOLOGIST [employer] STEPHANIE FAUSTIN M.D. Performed By: #### C MP, ETOH, CBC #### [place] [address] [place] GFR/1.73 sq M.predicted MDRD (S/P/Bld) [Vol rate/Area] mL/min/{1.73_m2} Normal [facility] Comment on above: Performed By: #### C MP, ETOH, CBC #### [address] Globulin (S) [Mass/Vol] 3.5 g/dL Normal T he [facility] Comment on above: Performed By: #### C MP, ETOH, CBC #### [address] Glucose [Mass/Vol] 105 mg/dL High 70-100 The [facility] Comment on above: Result Comment: [facility] Glucose Reference Range is dependent on time and content of last meal. Glucose of more than 200 mg/dL in a nonstressed, ambulatory subject supports the diagnosis of Diabetes Mellitus. ADA recommended reference range Performed By: #### C MP, ETOH, CBC #### [address] Potassium [Moles/Vol] 4.1 mmol/L Normal 3.5-5.1 [facility] Comment on above: Performed By: #### C MP, ETOH, CBC #### [address] Protein [Mass/Vol] 7.5 g/dL Normal 6.4-8.9 The [facility] Comment on above: Performed By: #### C MP, ETOH, CBC #### [place] [address] [place] Sodium [Moles/Vol] 139 mmol/L Normal 136-145 [facility] Comment on above: Performed By: #### C MP, ETOH, CBC #### [address] Urea nitrogen [Mass/Vol] 18 mg/dL Normal 7-25 [facility] Comment on above: Performed By: #### C MP, ETOH, CBC #### [place] [address] [place] Creatinine [Mass/volume] in Serum or PlasmaOrdered By: Cole Cast on 06-11-2024 Creatinine [Mass/Vol] Creatinine [Mass/volume] in Serum or Plasma 0.60-1.20 [facility] Dipstick and Microscopicon 0 06-11-2024 Appearance (U) Clear Normal Clear [facility] Comment on above: Order Comment: Name Collection Type:: Clean-Voided Midstream Performed By: #### C MP, ETOH, CBC #### [facility] [address] Bacteria,Urine Rare Normal None Seen [facility] Comment on above: Order Comment: Name Collection Type:: Clean-Voided Midstream Performed By: #### C MP, ETOH, CBC #### [place] [address] [place] Bilirubin,Urine Negative Normal Negative The [facility] Comment on above: Order Comment: Name Collection Type:: Clean-Voided Midstream Performed By: #### C MP, ETOH, CBC #### [address] Color (U) Yellow Normal Yellow [facility] Comment on above: Order Comment: Name Collection Type:: Clean-Voided Midstream Performed By: #### C MP, ETOH, CBC #### [address] Glucose Ql (U) Normal Normal Normal [facility] Comment on above: Order Comment: Name Collection Type:: Clean-Voided Midstream Performed By: #### C MP, ETOH, CBC #### [place] [address] [place] Hyaline Casts,Urine 20-49 High 0-8 [facility] Comment on above: Order Comment: Name Collection Type:: Clean-Voided Midstream Performed By: #### C MP, ETOH, CBC #### [address] Ketones Ql (U) Trace High Negative [facility] Comment on above: Order Comment: Name Collection Type:: Clean-Voided Midstream Performed By: #### C MP, ETOH, CBC #### [address] Leukocyte esterase Test strip Ql (U) 3+ High Negative [facility] Comment on above: Order Comment: Name Collection Type:: Clean-Voided Midstream Performed By: #### C MP, ETOH, CBC #### [place] [address] [place] Mucus,Urine 1+ Critically abnormal [facility] Comment on above: Order Comment: Name Collection Type:: Clean-Voided Midstream Performed By: #### C MP, ETOH, CBC #### [place] [address] [place] Nitrite,Urine Negative Normal Negative The [facility] Comment on above: Order Comment: Name Collection Type:: Clean-Voided Midstream Performed By: #### C MP, ETOH, CBC #### [address] Occult Blood,Urine Negative Normal Negative The [facility] Comment on above: Order Comment: Name Collection Type:: Clean-Voided Midstream Performed By: #### C MP, ETOH, CBC #### [place] [address] [place] pH (U) 5.5 [pH] Normal 5.0-9.0 [facility] Comment on above: Order Comment: Name Collection Type:: Clean-Voided Midstream Performed By: #### C MP, ETOH, CBC #### [place] [address] [place] Protein (U) [Mass/Vol] 20 mg/dL High Negative [facility] Comment on above: Order Comment: Name Collection Type:: Clean-Voided Midstream Performed By: #### C MP, ETOH, CBC #### [place] [address] [place] RBC,Urine 3-4 Normal 0-4 [facility] Comment on above: Order Comment: Name Collection Type:: Clean-Voided Midstream Performed By: #### C MP, ETOH, CBC #### [place] [address] [place] Specificy [place],Urine 1.025 Normal 1.001-1.030 The [facility] Comment on above: Order Comment: Name Collection Type:: Clean-Voided Midstream Performed By: #### C MP, ETOH, CBC #### [address] Squamous Epithelial Cell,Urine 5-9 High 0-2 [facility] Comment on above: Order Comment: Name Collection Type:: Clean-Voided Midstream Performed By: #### C MP, ETOH, CBC #### [address] Urobilinogen,Urine 3 mg/dL High Normal The [facility] Comment on above: Order Comment: Name Collection Type:: Clean-Voided Midstream Performed By: #### C MP, ETOH, CBC #### [address] WBC,Urine 10-19 High 0-4 [facility] Comment on above: Order Comment: Name Collection Type:: Clean-Voided Midstream Performed By: #### C MP, ETOH, CBC #### [address] Drug Screen,Urineon 06-12-19 25 Amphetamine Screen,Urine Negative Normal Negative [facility] Comment on above: Performed By: #### C MP, ETOH, CBC #### [address] Barbiturate Screen,Urine Negative Normal Negative [facility] Comment on above: Performed By: #### C MP, ETOH, CBC #### [place] [address] [place] Benzodiazepines Screen,Urine Negative Normal Negative [facility] Comment on above: Performed By: #### C MP, ETOH, CBC #### [place] [address] [place] Cannabinoid Screen,Urine Negative Normal Negative [facility] Comment on above: Result Comment: Thes e are unconfirmed results and should not be used for legal purposes. Drug Cut-Off Concentration: AMPH 1000 ng/mL SANDEEP 200 ng/mL JERSON 200 ng/mL COCM 300 ng/mL OP 300 ng/mL PCP 25 ng/mL THC 20 ng/mL PERFORMED BY: [place] [address] PATHOLOGIST [employer] STEPHANIE FAUSTIN M.D. Performed By: #### C MP, ETOH, CBC #### [address] Cocaine Screen,Urine Negative Normal Negative [facility] Comment on above: Performed By: #### C MP, ETOH, CBC #### [address] Opiate Screen,Urine Negative Normal Negative The [facility] Comment on above: Performed By: #### C MP, ETOH, CBC #### [address] Phencyclidine Screen,Urine Negative Normal Negative [facility] Comment on above: Performed By: #### C MP, ETOH, CBC #### [facility] [address] [place] [address] Eosinophils Auto (Bld) [#/Vo l]Ordered By: Cole Cast on 06-11-2024 Eosinophils (Bld) [#/Vol] Automated eosinophil count 0.0-0.45 [facility] Eosinophils/100 WBC Auto (Bl d)Ordered By: Cole Cast on 06-11-2024 Eosinophils/100 WBC (Bld) Automated eosinophil % . [facility] Epithelial cells.squamous [# /area] in Urine sediment by Automated countOrdered By: Cole Cast on 06-11-2024 Epithelial cells.squamous Auto (Urine sed) [#/Area] Epithelial cells.squamous [#/area] in Urine sediment by Automated count High 0-2 [facility] Erythrocyte distribution wid th Auto (RBC) [Ratio]Ordered By: Cole Cast on 06-11-2024 Erythrocyte distribution width (RBC) [Ratio] Erythrocyte distribution width [Ratio] by Automated count High 11.9-15.3 [facility] Erythrocytes [#/area] in Uri ne sediment by Automated countOrdered By: Cole Cast on 06-11-2024 RBC Auto (Urine sed) [#/Area] Erythrocytes [#/area] in Urine sediment by Automated count 0-4 [facility] Ethanol [Mass/volume] in Ser um or PlasmaOrdered By: Cole Cast on 06-11-2024 Ethanol [Mass/Vol] Ethanol [Mass/volume ] in Serum or Plasma [facility] Comment on above: Test not performed Ethyl Alcohol Profileon Ethanol [Mass/Vol] mg/dL Normal The [facility] Comment on above: Performed By: #### C MP, ETOH, CBC #### [facility] [address] Percent Ethanol Not performed Normal The [facility] Comment on above: Result Comment: PERF ORMED BY: [place] [address] PATHOLOGIST [employer] STEPHANIE FAUSTIN M.D. Performed By: #### C MP, ETOH, CBC #### [facility] [address] Globulin Calc (S) [Mass/Vol] Ordered By: Cole Cast on 06-11-2024 Globulin (S) [Mass/Vol] Serum globulin measurement by calculation (mass/volume) [facility] Glucose [Mass/volume] in Ser um or PlasmaOrdered By: Cole Cast on 06-11-2024 Glucose [Mass/Vol] Glucose [Mass/volume ] in Serum or Plasma High 70-100 [facility] Comment on above: ADA recommended refe rence rangeRandom Glucose Reference Range is dependent on time and content of last meal. Glucose of more than 200 mg/dL in a nonstressed, ambulatory subject supports the diagnosis of Diabetes Mellitus. Glucose [Mass/volume] in Uri ne by Test stripOrdered By: Cole Cast on 06-11-2024 Glucose Test strip (U) [Mass/Vol] Glucose [Mass/volume] in Urine by Test strip Normal [facility] HCG ( test) IA.rapi d Ql (U)Ordered By: Cole Cast on 06-11-2024 HCG ( test) Ql (U) Urine human chorionic gonadotropin (hCG) detection by immunoassay [facility] HCG,Urineon 06-11-2024 Beta HCG ( test) Ql (U) Negative Normal [facility] Comment on above: Order Comment: Name Collection Type:: Clean-Voided Midstream Result Comment: PERF ORMED BY: [place] [address] PATHOLOGIST [employer] STEPHANIE FAUSTIN M.D. Performed By: #### C MP, ETOH, CBC #### [address] Hematocrit Auto (Bld) [Volum e fraction]Ordered By: Cole Cast on 06-11-2024 Hematocrit (Bld) [Volume fraction] Hematocrit [Volume Fraction] of Blood by Automated count 34.0-46.4 [facility] Hemoglobin Test strip Ql (U) Ordered By: Cole Cast on 06-11-2024 Hemoglobin Ql (U) Hemoglobin [Presence ] in Urine by Test strip Negative [facility] Hemoglobin [Mass/volume] in BloodOrdered By: Cole Cast on 06-11-2024 Hemoglobin (Bld) [Mass/Vol] Hemoglobin [Mass/volume] in Blood 11.8-15.4 [facility] Hyaline casts [#/area] in Ur ine sediment by Automated countOrdered By: Cole Cast on 06-11-2024 Hyaline casts Auto (Urine sed) [#/Area] Hyaline casts [#/area] in Urine sediment by Automated count High 0-8 [facility] Ketones Test strip Ql (U)Ord ered By: Cole Cast on 06-11-2024 Ketones Ql (U) Ketones [Presence] i n Urine by Test strip High Negative [facility] Leukocyte esterase [Presence ] in Urine by Test stripOrdered By: Cole Cast on 06-11-2024 Leukocyte esterase Test strip Ql (U) Leukocyte esterase [Presence] in Urine by Test strip High Negative [facility] Leukocytes [#/area] in Urine sediment by Automated countOrdered By: Cole Cast on 06-11-2024 WBC Auto (Urine sed) [#/Area] Leukocytes [#/area] in Urine sediment by Automated count High 0-4 [facility] Leukocytes [#/volume] correc hemalatha for nucleated erythrocytes in Blood by Automated counOrdered By: Cole Cast on 06-11-2024 WBC corrected for nucl RBC Auto (Bld) [#/Vol] Leukocytes [#/volume] corrected for nucleated erythrocytes in Blood by Automated coun 3.8-11.6 [facility] Lipid Panelon 06-11-2024 Cholesterol [Mass/Vol] 132 mg/dL Low 140-200 Th [facility] Comment on above: Order Comment: KAYLIE Erwin Comment use from ER Result Comment: Chol less than 200 mg/dl low risk Chol 201-239 mg/dl borderline risk Chol 240 mg/dl and greater high risk Performed By: #### C MP, ETOH, CBC #### [facility] [address] [place] [address] [place] Cholesterol in HDL [Mass/Vol] 46 mg/dL Normal 23-92 [facility] Comment on above: Order Comment: KAYLIE Erwin Comment use from ER Result Comment: HDL CHOL ATP-III CLASSIFICATION Cardiovascular Risk HDL > or equal to 60 mg/dL LOW HDL < 40 mg/dL HIGH Performed By: #### C MP, ETOH, CBC #### [facility] [address] [place] [address] [place] Cholesterol.total/Polina sterol in HDL [Mass ratio] 2.9 {ratio} Normal <5.0 [facility] Comment on above: Order Comment: KAYLIE Erwin Comment use from ER Performed By: #### C MP, ETOH, CBC #### [facility] [address] [place] [address] [place] LDL Cholesterol,Calculated 61 mg/dL Normal 0-100 The [facility] Comment on above: Order Comment: KAYLIE Erwin Comment use from ER Result Comment: LDL ATP III CLASSIFICATION LDL less than 100 mg/dL Optimal LDL 100-129 mg/dL Near or above optimal LDL 130-159 mg/dL Borderline high LDL 160-189 mg/dL High LDL greater than 189 mg/dL Very high Performed By: #### C MP, ETOH, CBC #### [facility] [address] [place] [address] [place] Triglyceride w/Reflex 124 mg/dL Normal 0-149 [facility] Comment on above: Order Comment: KAYLIE Erwin Comment use from ER Result Comment: TRIG ATP III CLASSIFICATION TRIG less than 150 mg/dL Normal TRIG 150-199 mg/dL Borderline high TRIG 200-500 mg/dL High TRIG greater than 500 mg/dL Very high Standard traceable to the Center for Disease Conrtrol and Prevention (CDC) test method. Performed By: #### C MP, ETOH, CBC #### [facility] [address] VLDL CHOLESTEROL 24 mg/dL Normal The [facility] Comment on above: Order Comment: KAYLIE Erwin Comment use from ER Performed By: #### C MP, ETOH, CBC #### [facility] [address] Lymphocytes Auto (Bld) [#/Vo l]Ordered By: Cole Cast on 06-11-2024 Lymphocytes (Bld) [#/Vol] Lymphocytes [#/volume] in Blood by Automated count 1.00-4.8 [facility] Lymphocytes/100 WBC Auto (Bl d)Ordered By: Cole Cast on 06-11-2024 Lymphocytes/100 WBC (Bld) Lymphocytes/100 leukocytes in Blood by Automated count . [facility] MCH Auto (RBC) [Entitic mass ]Ordered By: Cole Cast on 06-11-2024 MCH (RBC) [Entitic mass] MCH [Entitic mass] by Automated count 24.7-34.3 [facility] MCHC Auto (RBC) [Mass/Vol]Or dered By: Cole Cast on 06-11-2024 MCHC (RBC) [Mass/Vol] MCHC [Mass/volume] by Automated count 32.0-35.0 [facility] MCV Auto (RBC) [Entitic vol] Ordered By: Cole Cast on 06-11-2024 MCV (RBC) [Entitic vol] MCV [Entitic vol ume] by Automated count 80-100 [facility] Monocyte distribution width [Entitic volume] in Blood by AutomatedOrdered By: Cole Cast on 06-11-2024 Monocyte distribution width Auto (Bld) [Entitic vol] Monocyte distribution width [Entitic volume] in Blood by Automated 0.00-20.00 [facility] Monocytes Auto (Bld) [#/Vol] Ordered By: Cole Cast on 06-11-2024 Monocytes (Bld) [#/Vol] Automated blood monocyte count 0.0-0.8 [facility] Monocytes/100 WBC Auto (Bld) Ordered By: Cole Cast on 06-11-2024 Monocytes/100 WBC (Bld) Automated monocyte % . [facility] Mucus [Presence] in Urine by AutomatedOrdered By: Cole Cast on 06-11-2024 Mucus Auto Ql (U) Mucus [Presence] in Urine by Automated Abnormal [facility] Neutrophils Auto (Bld) [#/Vo l]Ordered By: Cole Cast on 06-11-2024 Neutrophils (Bld) [#/Vol] Neutrophils [#/volume] in Blood by Automated count 1.8-7.7 [facility] Neutrophils/100 WBC Auto (Bl d)Ordered By: Cole Cast on 06-11-2024 Neutrophils/100 WBC (Bld) Automated neutrophil % . [facility] Nitrite Test strip Ql (U)Ord ered By: Cole Cast on 06-11-2024 Nitrite Ql (U) Nitrite [Presence] i n Urine by Test strip Negative [facility] No Panel InformationOrdered By: Cole Cast on 06-11-2024 Estimated GFR (CKD-EPI) > 60.0 mL/Min [facility] Creatinine Clearance (Chem 76.30 [facility] Nucleated erythrocytes [Pres ence] in Blood by Automated countOrdered By: Cole Cast on 06-11-2024 Nucleated RBC Auto Ql (Bld) Nucleated erythrocytes [Presence] in Blood by Automated count 0-0.5 [facility] Office Visiton 06-11-2024 Follow-up visit [id number] Shahla Arias 1980 F Date Provider Department Center 06/11/2024 [facility]NE[facility] SCOTT Family History Problem Relation Age of Onset Hypertension Mother Cancer Mother Stroke Mother Family Status - Relation Status Age at Mother Father Alive Sister Alive Brother Alive Level of Service:82379 [place] OFFICE/OUTPATIENT NEW MODERATE MDM 45 MINUTES Normal [facility] Opiates [Presence] in Urine by Screen methodOrdered By: Cole Cast on 06-11-2024 Opiates Screen Ql (U) Opiates [Presence] in Urine by Screen method Negative [facility] Phencyclidine Screen Ql (U)O rdered By: Cole Cast on 06-11-2024 Phencyclidine Ql (U) Phencyclidine [Presence] in Urine by Screen method Negative [facility] Platelet mean volume Auto (B ld) [Entitic vol]Ordered By: Cole Cast on 06-11-2024 Platelet mean volume (Bld) [Entitic vol] Platelet mean volume [Entitic volume] in Blood by Automated count 6.3-10.7 [facility] Platelets Auto (Bld) [#/Vol] Ordered By: Cole Cast on 06-11-2024 Platelets (Bld) [#/Vol] Platelets [#/vol ume] in Blood by Automated count 150-450 [facility] Potassium [Moles/volume] in Serum or PlasmaOrdered By: Cole Cast on 06-11-2024 Potassium [Moles/Vol] Potassium [Moles/volume] in Serum or Plasma 3.5-5.1 [facility] Protein Test strip (U) [Mass /Vol]Ordered By: Cole Cast on 06-11-2024 Protein (U) [Mass/Vol] Protein [Mass/vol ume] in Urine by Test strip High Negative [facility] Protein [Mass/volume] in Ser um or PlasmaOrdered By: Cole Cast on 06-11-2024 Protein [Mass/Vol] Protein [Mass/volume ] in Serum or Plasma 6.4-8.9 [facility] RBC Auto (Bld) [#/Vol]Ordere d By: Cole Cast on 06-11-2024 RBC (Bld) [#/Vol] Erythrocytes [#/volume] in Blood by Automated count 3.60-5.00 [facility] Serum or plasma albumin/glob ulin mass ratioOrdered By: Cole Cast on 06-11-2024 Albumin/Globulin [Mass ratio] Serum or plasma albumin/globulin mass ratio [facility] Serum or plasma anion gap de terminationOrdered By: Cole Cast on 06-11-2024 Anion gap [Moles/Vol] Serum or plasma an ion gap determination 6.0-15.0 [facility] Serum or plasma total choles terol/high density lipoprotein (HDL) cholesterol mass ratOrdered By: Vivek Antoine on 06-11-2024 Cholesterol.total/Polina sterol in HDL [Mass ratio] Serum or plasma total cholesterol/high density lipoprotein (HDL) cholesterol mass rat <5.0 [facility] Sodium [Moles/volume] in Ser um or PlasmaOrdered By: Cole Cast on 06-11-2024 Sodium [Moles/Vol] Sodium [Moles/volume ] in Serum or Plasma 136-145 [facility] Specific gravity Test strip (U) [Rel density]Ordered By: Cole Cast on 06-11-2024 Specific gravity (U) [Rel density] Specific gravity of Urine by Test strip 1.001-1.030 [facility] Thyroid Stim Hormone w/Rflxo n 06-11-2024 Thyroid Stim Hormone w/Rflx 3.58 u[iU]/mL Normal 0.45-5.33 [facility] Comment on above: Order Comment: KAYLIE Erwin Comment use from ER Performed By: #### C MP, ETOH, CBC #### [address] Thyrotropin [Units/volume] i n Serum or PlasmaOrdered By: Vivek Antoine on 06-11-2024 TSH Qn Thyrotropin [Units/volume] in Serum or Plasma 0.45-5.33 [facility] Triglyceride [Mass/volume] i n Serum or PlasmaOrdered By: Vivek Antoine on 06-11-2024 Triglyceride [Mass/Vol] Triglyceride [Mass/volume] in Serum or Plasma 0-149 [facility] Comment on above: TRIG ATP III CLASSIF ICATIONTRIG less than 150 mg/dL NormalTRIG 150-199 mg/dL Borderline highTRIG 200-500 mg/dL High TRIG greater than 500 mg/dL Very highStandard traceable to the Center for Disease Conrtrol and Prevention (CDC) test method. Urea nitrogen [Mass/volume] in Serum or PlasmaOrdered By: Cole Cast on 06-11-2024 Urea nitrogen [Mass/Vol] Urea nitrogen [Mass/volume] in Serum or Plasma 7-25 [facility] Urine Cultureon 06-11-2024 Bacteria identified Cx Nom (U) <9,000 colonies/ml mixed bacterial skin contaminants 2 Days PERFORMED BY: [address] [address] PATHOLOGIST [employer] STEPHANIE FAUSTIN M.D. Normal [facility] Comment on above: Performed By: #### C MP, ETOH, CBC #### [facility] [address] [place] [id number] [facility] Urine cultureOrdered By: Claus Cast on 06-11-2024 Bacteria identified Cx Nom (U) Urine culture [facility] Urobilinogen Test strip (U) [Mass/Vol]Ordered By: Cole Cast on 06-11-2024 Urobilinogen (U) [Mass/Vol] Urobilinogen [Mass/volume] in Urine by Test strip High Normal [facility] Vitamin D 25 Hydroxy Totalon 06-11-2024 Vitamin D 25 Hydroxy Total 47.1 ng/mL Normal 30-100 [facility] Comment on above: Order Comment: FASTI NG Y Comment use from ER Result Comment: JAYSON MIN D STATUS 25(OH)VITAMIN D RANGE (ng/mL) Deficient <20 Insufficient 20 to <30 Sufficient 30 to 100 Reference: Braeden MF,Marsha NC, Ez MULTANI, et al. Evaluation,treatment, and prevention of vitamin D deficiency; an Endocrine Society clinical practice guideline. JCEM. 2010; 96(7):1911-30. PERFORMED BY: [facility] [address] [place] [address] PATHOLOGIST [employer] STEPHANIE FAUSTIN M.D. Performed By: #### C MP, ETOH, CBC #### [facility] [address] [place] [id number] [facility] Vitamin D+Metabolites [Mass/ volume] in Serum or PlasmaOrdered By: Vivek Antoine on 06-11-2024 Vitamin D+Metabolites [Mass/Vol] Vitamin D+Metabolites [Mass/volume] in Serum or Plasma 30-100 [facility] Comment on above: VITAMIN D STATUS 25( [...] ] in Blood by Automated count 3.8-11.6 [facility] pH Test strip (U)Ordered By: Cole Cast on 06-11-2024 pH (U) pH of Urine by Test strip 5.0-9.0 [facility] 30on 05-25-2024 30 Problem: Pain - Adul t Goal: Verbalizes/displays adequate comfort level or baseline comfort level 05/25/2024 1031 by Aminah Campbell RN Outcome: Adequate for Discharge 05/25/2024 1030 by Aminah Campbell RN Outcome: Progressing Problem: Safety - Adult Goal: Free from fall injury 05/25/2024 1031 by Aminah Campbell RN Outcome: Adequate for Discharge 05/25/2024 1030 by mAinah Campbell RN Outcome: Progressing Problem: Discharge Planning [...] by Aminah Campbell RN Outcome: Progressing Normal [facility] 30 Problem: Pain - Adul t Goal: [...] goals for the shift include VSS Normal [facility] 30 The patient is Moderately Stable - [...] and maintained or improved Outcome: Progressing Normal [facility] BASIC METABOLIC PANELon 03-2 Anion gap [Moles/Vol] 10 mmol/L Normal 7-20 [facility] Comment on above: Performed By: #### L AB15 ####[facility] ([facility])[address] [place] [address] Calcium [Mass/Vol] 8.7 mg/dL Normal 8.6-10.3 [facility] Comment on above: Performed By: #### L AB15 ####[facility])[address] [place] [address] Chloride [Moles/Vol] 108 mmol/L High 98-107 [facility] Comment on above: Performed By: #### L AB15 ####[facility] [facility] ([facility]AK[facility])[address] [place] [address] CO2 [Moles/Vol] 25 mmol/L Normal 21-31 [facility] Comment on above: Performed By: #### L [id number] ####[facility] ([facility])[address] [place] [address] Creatinine [Mass/Vol] 1.04 mg/dL Normal 0.60-1.20 [facility] Comment on above: Performed By: #### L [id number] ####[facility] ([facility])[address] [place] [address] GLOMERULAR FILTRATION RATE ML/MIN/1.73 SQ M.PREDICTED 67.1 mL/min/1.73m*2 Normal >60.0 [facility] Comment on above: Result Comment: [facility]???s estimated glomerular filtration rate (eGFR) will no [...] of individuals. Performed By: #### L [id number] ####[facility] ([facility])[address] [place] [address] Glucose [Mass/Vol] 100 mg/dL Normal 70-100 [facility] Comment on above: Performed By: #### L [id number] ####[facility] ([facility])[address] [place] [address] Potassium [Moles/Vol] 4.9 mmol/L Normal 3.5-5.1 [facility] Comment on above: Performed By: #### L [id number] ####[facility] ([facility])[address] [place] [address] Sodium [Moles/Vol] 138 mmol/L Normal 136-145 [facility] Comment on above: Performed By: #### L [id number] ####[facility] ([facility])[address] [place] [address] Urea nitrogen [Mass/Vol] 11 mg/dL Normal 7-25 [facility] Comment on above: Performed By: #### L [id number] ####[facility] ([facility])[address] [place] [address] UREA NITROGEN/CREATININE (MASS RATIO) IN SER/PLAS 10.6 Normal [facility] Comment on above: Performed By: #### L [id number] ####[facility] ([facility])[address] [place] [address] CBCon 05-25-2024 Erythrocyte distribution width (RBC) [Ratio] 14.6 % Normal 11.5-15.0 [facility] Comment on above: Performed By: #### L [id number] #### [facility] ([facility]) [address] [place] [address] ERYTHROCYTE MEAN CORPUSCULAR HEMOGLOBIN CONCENTRATION (G/DL) BY AUTOMATED 31.6 g/dL Low 32.0-35.0 [facility] Comment on above: Performed By: #### L [id number] #### [facility] ([facility]) [address] [place] [address] Hematocrit (Bld) [Volume fraction] 30.7 % Low 36.0-45.0 [facility] Comment on above: Performed By: #### L [id number] #### [facility] ([facility]) [address] [place] [address] Hemoglobin (Bld) [Mass/Vol] 9.7 g/dL Low 12.0-15.0 [facility] Comment on above: Performed By: #### L [id number] #### [facility] ([facility]) [address] [place] [address] MCH (RBC) [Entitic mass] 28.9 pg Normal 27.0-33.0 [facility] Comment on above: Performed By: #### L [id number] #### [facility] ([facility]) [address] [place] [address] MCV (RBC) [Entitic vol] 91.4 fL Normal 82.0-98.0 [facility] Comment on above: Performed By: #### L [id number] #### [facility] ([facility]) [address] [place] [address] PLATELETS (10*3/UL) IN BLOOD AUTOMATED COUNT 189 10*3/uL Normal 150-400 [facility] Comment on above: Performed By: #### L [id number] #### [facility] ([facility]) [address] [place] [address] RBC (Bld) [#/Vol] 3.36 10*6/uL Low 3.80-5.00 [facility] Comment on above: Performed By: #### L [id number] #### [facility] ([facility]) [address] [place] [address] WBC (Bld) [#/Vol] 5.23 10*3/uL Normal 4.00-10.60 [facility] Comment on above: Performed By: #### L [id number] #### [facility] ([facility]) [address] [place] [address] 30on 05-24-2024 30 Daily Case Managemen t Update Multidisciplinary rounds have been completed. Barriers to Discharge: Patient was transferred from [facility] with NSTEMI, abnormal EKG and stress [...] appropriate for patient?: Yes New Consults: Normal [facility] 30 The patient is Moderately Stable - Low risk of patient condition declining or worsening The patient's goals for the shift include Comfort The clinical goals for the shift include VSS Normal [facility] 30 The patient is Moderately Stable - Low risk of patient condition declining or worsening The patient's goals for the shift include Comfort The clinical goals for the shift include VSS [facility] ANTI-XA (HEPARIN LEVEL)on HEPARIN UNFRACTIONATED (U/ML) IN PPP BY CHROMOGENIC METHOD 0.49 IU/mL Normal 0.3-0.7 [facility] Comment on above: Order Comment: Check anti-Xa level every 6 hours while on heparin infusion, or per protocol. Result Comment: Jamilah roxaban and Apixaban will interfere with the anti Xa assay used to monitor UFH and LMWH. Performed By: #### L [id number] #### [facility] ([facility]) [address] [place] [address] APTTon 05-24-2024 ACTIVATED PARTIAL THROMBOPLASTIN TIME IN PPP BY COAGULATION ASSAY <20.0 Low 25.0-35.0 [facility] Comment on above: Order Comment: Basel ine aPTT before initiating heparin infusion. Result Comment: Clin ical significance of the APTT is questionable in the presence of heparin. Performed By: #### L [id number] #### [facility] ([facility]) [address] [place] [address] CBC WITH AUTO DIFFERENTIALon 05-24-2024 Erythrocyte distribution width (RBC) [Ratio] 14.7 % Normal 11.5-15.0 [facility] Comment on above: Performed By: #### L [id number] #### [facility] ([facility]) [address] [place] [address] ERYTHROCYTE MEAN CORPUSCULAR HEMOGLOBIN CONCENTRATION (G/DL) BY AUTOMATED 31.8 g/dL Low 32.0-35.0 [facility] Comment on above: Performed By: #### L [id number] #### [facility] ([facility]) [address] [place] [address] Hematocrit (Bld) [Volume fraction] 30.5 % Low 36.0-45.0 [facility] Comment on above: Performed By: #### L [id number] #### [facility] ([facility]) [address] [place] [address] Hemoglobin (Bld) [Mass/Vol] 9.7 g/dL Low 12.0-15.0 [facility] Comment on above: Performed By: #### L [id number] #### [facility] ([facility]) [address] [place] [address] IMMATURE PLATELET FRACTION % 1.3 % Normal 0.8-6.3 [facility] Comment on above: Performed By: #### L [id number] #### [facility] ([facility]) [address] [place] [address] MCH (RBC) [Entitic mass] 29.5 pg Normal 27.0-33.0 [facility] Comment on above: Performed By: #### L [id number] #### [facility] ([facility]) [address] [place] [address] MCV (RBC) [Entitic vol] 92.7 fL Normal 82.0-98.0 [facility] Comment on above: Performed By: #### L [id number] #### [facility] ([facility]) [address] [place] [address] NRBC (PER 100 WBCS) BY AUTOMATED COUNT 0.0 % Normal 0 [facility] Comment on above: Performed By: #### L [id number] #### [facility] ([facility]) [address] [place] [address] PLATELETS (10*3/UL) IN BLOOD AUTOMATED COUNT 153 10*3/uL Normal 150-400 [facility] Comment on above: Result Comment: Slid e checked, no clumps or clots seen Performed By: #### L [id number] #### [facility] ([facility]) [address] [place] [address] RBC (Bld) [#/Vol] 3.29 10*6/uL Low 3.80-5.00 [facility] Comment on above: Performed By: #### L [id number] #### [facility] ([facility]) [address] [place] [address] WBC (Bld) [#/Vol] 5.00 10*3/uL Normal 4.00-10.60 [facility] Comment on above: Performed By: #### L [id number] #### [facility] ([facility]) [address] [place] [address] COMPREHENSIVE METABOLIC PANE Seng 05-24-2024 Albumin [Mass/Vol] 3.4 g/dL Low 3.5-5.7 [facility] Comment on above: Performed By: #### L [id number] #### [facility] ([facility]) [address] [place] [address] ALP [Catalytic activity/Vol] 65 U/L Normal 34-104 [facility] Comment on above: Performed By: #### L [id number] #### [facility] ([facility]) [address] [place] [address] ALT [Catalytic activity/Vol] 20 U/L Normal 7-52 [facility] Comment on above: Performed By: #### L [id number] #### [facility] ([facility]) [address] [place] [address] Anion gap [Moles/Vol] 9 mmol/L Normal 7-20 [facility] Comment on above: Performed By: #### L [id number] #### [facility] ([facility]) [address] [place] [address] AST [Catalytic activity/Vol] 21 U/L Normal 13-39 [facility] Comment on above: Performed By: #### L [id number] #### [facility] ([facility]) [address] [place] [address] Bilirubin [Mass/Vol] 0.5 mg/dL Normal 0.3-1.0 [facility] Comment on above: Performed By: #### L [id number] #### [facility] ([facility]) [address] [place] [address] Calcium [Mass/Vol] 8.6 mg/dL Normal 8.6-10.3 [facility] Comment on above: Performed By: #### L [id number] #### [facility] [email or web address]] HOSP[facility] ([facility]) [address] [place] [address] Chloride [Moles/Vol] 107 mmol/L Normal 98-107 [facility] Comment on above: Performed By: #### L [id number] #### [facility] ([facility]) [address] [place] [address] CO2 [Moles/Vol] 28 mmol/L Normal 21-31 [facility] Comment on above: Performed By: #### L [id number] #### [facility] ([facility]) [address] [place] [address] Creatinine [Mass/Vol] 1.06 mg/dL Normal 0.60-1.20 [facility] Comment on above: Performed By: #### L [id number] #### [facility] ([facility]) [address] [place] [address] GLOMERULAR FILTRATION RATE ML/MIN/1.73 SQ M.PREDICTED 65.6 mL/min/1.73m*2 Normal >60.0 [facility] Comment on above: Result Comment: [facility]???s estimated glomerular filtration rate (eGFR) will no [...] individuals. Performed By: #### L [id number] #### [facility] ([facility]) [address] [place] [address] Glucose [Mass/Vol] 99 mg/dL Normal 70-100 [facility] Comment on above: Performed By: #### L [id number] #### [facility] ([facility]) [address] [place] [address] Potassium [Moles/Vol] 4.6 mmol/L Normal 3.5-5.1 [facility] Comment on above: Performed By: #### L [id number] #### [facility] ([facility]) [address] [place] [address] Protein [Mass/Vol] 5.9 g/dL Low 6.0-8.3 [facility] Comment on above: Performed By: #### L [id number] #### [facility] ([facility]) [address] [place] [address] Sodium [Moles/Vol] 139 mmol/L Normal 136-145 [facility] Comment on above: Performed By: #### L [id number] #### [facility] ([facility]) [address] [place] [address] Urea nitrogen [Mass/Vol] 11 mg/dL Normal 7-25 [facility] Comment on above: Performed By: #### L [id number] #### [facility] ([facility]) [address] [place] [address] UREA NITROGEN/CREATININE (MASS RATIO) IN SER/PLAS 10.4 Normal [facility] Comment on above: Performed By: #### L [id number] #### [facility] ([facility]) [address] [place] [address] CONSULTon 05-24-2024 CONSULT -- Attestation signed by [...] troponins Vira Heath MD, ScM, MSc Cardiac Ophthalmologist Email: [email or web address] Cardiology Consult Note Reason for Consult: NSTEMI HPI: Shahla Arias is a 44 y.o. female with past history remarkable for primary hypertension, peripheral artery disease, preexcitation on EKG who presented to [email or web address] as a transfer from [facility] where she initially presented complaining of abdominal pain, nausea and vomiting that she relates it started after she ate at a restaurant outside. Initial workup in [facility] showed elevated high-sensitivity troponin of 140 which trended downward during hospital admission to 84. Reported that she was not able to complete a stress test in [facility] and cardiology team were contacted for [...] 05/23/2024 olmesar (more content not included)... Normal [facility] HIGH SENSITIVITY TROPONIN Io n 05-24-2024 HS TROPONIN I (NG/L) 52 ng/L Critically high <15 [facility] Comment on above: Performed By: #### L [id number] #### [facility] ([facility]) [address] [facility] [place] [address] HPon 05-24-2024 HP H&P reviewed. The patient was examined and there are no changes to the H&P. Mrs. Arias, a 44 year old female patient is scheduled for coronary angiogram for NSTEMI with abnormal stress test (anterior reversible defect and TID). Normal [facility] LIPASEon 05-24-2024 LIPASE (U/L) IN SER/PLAS 39 U/L Normal 11-82 [facility] Comment on above: Performed By: #### L [id number] #### [facility] ([facility]) [address] [place] [address] MAGNESIUMon 05-24-2024 Magnesium [Mass/Vol] 1.7 mg/dL Low 1.9-2.7 [facility] Comment on above: Performed By: #### L [id number] #### [facility] ([facility]) [address] [place] [address] MANUAL DIFFERENTIALon 2024 BASOPHILS (10*3/UL) IN BLOOD BY CALCULATION 0.03 10*3/uL Normal 0.00-0.20 [facility] Comment on above: Performed By: #### L [id number] ####[facility] ([facility])[address] [place] [address] BASOPHILS/100 LEUKOCYTES IN BLOOD BY AUTOMATED COUNT 0.6 % Normal 0.0-1.0 [facility] Comment on above: Performed By: #### L [id number] ####[facility] ([facility])[address] [place] [address] EOSINOPHILS (10*3/UL) IN BLOOD BY CALCULATION 0.10 10*3/uL Normal 0.00-0.50 [facility] Comment on above: Performed By: #### L [id number] ####[facility] ([facility])[address] [place] [address] EOSINOPHILS/100 LEUKOCYTES IN BLOOD BY AUTOMATED COUNT 2.0 % Normal 0.0-6.0 [facility] Comment on above: Performed By: #### L [id number] ####[facility] ([facility])[address] [place] [address] IMMATURE GRANULOCYTES (10*3/UL) IN BLOOD BY CALCULATION 0.02 10*3/uL Normal 0.00-0.20 [facility] Comment on above: Performed By: #### L [id number] ####[facility] ([facility])[address] [place] [address] IMMATURE GRANULOCYTES/100 LEUKOCYTES IN BLOOD BY AUTOMATED COUNT 0.4 % Normal 0.0-1.0 [facility] Comment on above: Performed By: #### L [id number] ####[facility] ([facility])[address] [place] [address] LYMPHOCYTES (10*3/UL) IN BLOOD BY CALCULATION 1.07 10*3/uL Low 1.20-4.00 [facility] Comment on above: Performed By: #### L [id number] ####[facility] ([facility])[address] [place] [address] LYMPHOCYTES/100 LEUKOCYTES IN BLOOD BY AUTOMATED COUNT 21.4 % Normal 20.0-45.0 [facility] Comment on above: Performed By: #### L [id number] ####[facility] ([facility])[address] [place] [address] MONOCYTES (10*3/UL) IN BLOOD BY CALCUATION 0.44 10*3/uL Normal 0.10-1.00 [facility] Comment on above: Performed By: #### L [id number] ####[facility] ([facility])[address] [place] [address] MONOCYTES/100 LEUKOCYTES IN BLOOD BY AUTOMATED COUNT 8.8 % Normal 5.0-12.0 [facility] Comment on above: Performed By: #### L [id number] ####[facility] ([facility])[address] [place] [address] NEUTROPHILS (10*3/UL) IN BLOOD BY CALCULATION 3.3 10*3/uL Normal 1.6-7.6 [facility] Comment on above: Performed By: #### L [id number] ####[facility] ([facility])[address] [place] [address] NEUTROPHILS/100 LEUKOCYTES IN BLOOD BY AUTOMATED COUNT 66.8 % Normal 40.0-72.0 [facility] Comment on above: Performed By: #### L [id number] ####[facility] ([facility])[address] [place] [address] SERUM QUALITATIVEo n 05-24-2024 HCG SERUM-QNI/QML-[id number] Negative Normal [facility] Comment on above: Performed By: #### L [id number] #### [facility] ([facility]) [address] [place] [address] URINALYSISon 05-24-2024 BILIRUBIN, TOTAL PRESENCE IN URINE Negative Normal Negative [facility] Comment on above: Performed By: #### L [id number] ####[facility] ([facility])[address] [place] [address] Clarity (U) Clear Normal Clear [facility] Comment on above: Performed By: #### L [id number] ####[facility] ([facility])[address] [place] [address] Color (U) Light-Yellow Normal Colorless, Yellow, Light-Yello w [facility] Comment on above: Performed By: #### L [id number] ####[facility] ([facility])[address] [place] [address] GLUCOSE (MG/DL) IN URINE Normal Normal Normal [facility] Comment on above: Performed By: #### L [id number] ####[facility] ([facility])[address] [place] [address] HEMOGLOBIN PRESENCE IN URINE Negative Normal Negative [facility] Comment on above: Performed By: #### L [id number] ####[facility] ([facility])[address] [place] [address] Ketones Ql (U) Negative Normal Negative [facility] Comment on above: Performed By: #### L [id number] ####[facility] ([facility])[address] [place] [address] LEUKOCYTE ESTERASE PRESENCE IN URINE BY TEST STRIP Moderate Abnormal Negative [facility] Comment on above: Performed By: #### L [id number] ####[facility] ([facility])[address] [place] [address] NITRITE PRESENCE IN URINE Negative Normal Negative [facility] Comment on above: Performed By: #### L [id number] ####[facility] ([facility])[address] [place] [address] pH (U) 7.0 [pH] Normal 5.0-8.0 [facility] Comment on above: Performed By: #### L [id number] ####[facility] ([facility])[address] [place] [address] Protein (U) [Mass/Vol] Negative Normal Negative [facility] Comment on above: Performed By: #### L [id number] ####[facility] ([facility])[address] [place] [address] Specific gravity (U) [Rel density] 1.013 Normal 1.010-1.030 [facility] Comment on above: Performed By: #### L [id number] ####[facility] ([facility])[address] [place] [address] UROBILINOGEN (MG/DL) IN URINE Normal Normal Normal [facility] Comment on above: Performed By: #### L [id number] ####[facility] ([facility])[address] [place] [address] URINALYSIS MICROSCOPICon RBC (#/HPF) IN URINE SEDIMENT 0-2 Normal None Seen, 0-2 [facility] Comment on above: Performed By: #### L [id number] #### [facility] ([facility]) [address] [place] [address] SQUAMOUS EPITHELIAL CELLS (#/LPF) IN URINE SEDIMENT Many Abnormal None Seen, Occasional, Few [facility] Comment on above: Performed By: #### L [id number] #### [facility] ([facility]) [address] [place] [address] WBC (LEUKOCYTE) (#/HPF) IN URINE SEDIMENT 3-5 Abnormal None Seen, 0-2 [facility] Comment on above: Performed By: #### L [id number] #### [facility] [address] [place] [address] COVID Cepheidon 03-31-2024 SARS-CoV-2 (COVID-19) RNA PITO+probe Ql (Unsp spec) COVID Cepid [facility] - Microbiology an d Antimicrobial susceptibilityon 03-31-2024 SARS-CoV-2 (COVID-19) RNA PITO+probe Ql (Unsp spec) Negative [facility] No Panel Informationon 03-31 POC Influenza A (PCR) Negative [facility] POC Influenza B (PCR) Negative [facility] Office Visiton 03-15-2024 Follow-up visit [id number] Shahla Arias 1980 F Date Provider Department Center 03/15/2024 [facility] Family History Problem Relation Age of Onset Hypertension Mother Cancer Mother Stroke Mother Family Status - Relation Status Age at Mother Level of Service:55945 UT OFFICE/OUTPATIENT ESTABLISHED LOW MDM 20 MIN Normal [facility] ECG 12 lead ECGon 11-09-2023 ECG 12 lead ECG [facility] [place] [address] Electrocardiograph Report Signed Patient: Shahla Arias MR#: [id number] : 1980 Acct:[id number] Age/Sex: 43 / F ADM Date: 11/08/23 Loc: Room: [address] [place] [address] Type: ADM IN Attending Dr: Geo Loomis [...] ventricular hypertrophy ( R in aVL , Ignacio product , Romhilt-Medina ) Posterior infarct , age undetermined Abnormal ECG When compared with ECG of 25-May-2022 07:06, ST no longer depressed in Inferior leads Confirmed by Julieth Kumar ([id number]) on 11/10/2023 5:37:37 PM Referred By: Electronically Signed By: Julieth Kumar Transcribed By: MUS Signed By Julieth Kumar DO 4 1737 Normal [facility] Alanine aminotransferase [En zymatic activity/volume] in Serum or PlasmaOrdered By: Art Pa on 11-08-2023 ALT [Catalytic activity/Vol] 18 U/L Normal 7-52 [facility] Comment on above: Performed By: #### C MP, ETOH, CBC #### [facility] [address] [place] [address] [place] Albumin [Mass/volume] in Ser um or Plasma by Bromocresol green (BCG) dye binding methoOrdered By: Art Pa on 11-08-2023 Albumin BCG dye [Mass/Vol] 4.1 g/dL 3.5-5.7 [facility] Alkaline phosphatase [Enzyma tic activity/volume] in Serum or PlasmaOrdered By: Art Pa on 11-08-2023 ALP [Catalytic activity/Vol] 93 U/L Normal 34-104 [facility] Comment on above: Performed By: #### C MP, ETOH, CBC #### [facility] [address] [place] [id number] [place] Amphetamine Screen Ql (U)Ord ered By: Art Pa on 11-08-2023 Amphetamines Ql (U) Negative Negative [facility] Aspartate aminotransferase [ Enzymatic activity/volume] in Serum or PlasmaOrdered By: Art aP on 11-08-2023 AST [Catalytic activity/Vol] 19 U/L Normal 13-39 [facility] Comment on above: Performed By: #### C MP, ETOH, CBC #### [facility] [address] [place] [id number] [place] Automated basophil %Ordered By: Art Pa on 11-08-2023 Basophils/100 WBC (Bld) 0.7 % Normal . [facility] Comment on above: Performed By: #### C MP, ETOH, CBC #### [address] Automated basophil countOrde red By: Art Pa on 11-08-2023 Basophils (Bld) [#/Vol] 0.1 10*3/uL Normal 0.0-0.2 [facility] Comment on above: Result Comment: PERF ORMED BY: [place] [id number] PATHOLOGIST [employer]IPPER DANNIE MOODY M.D. Performed By: #### C MP, ETOH, CBC #### [address] Automated blood monocyte cou ntOrdered By: Art Pa on 11-08-2023 Monocytes (Bld) [#/Vol] 0.9 10*3/uL High 0.0-0.8 [facility] Comment on above: Performed By: #### C MP, ETOH, CBC #### [address] Automated eosinophil %Ordere d By: Art Pa on 11-08-2023 Eosinophils/100 WBC (Bld) 0.1 % Normal . [facility] Comment on above: Performed By: #### C MP, ETOH, CBC #### [address] Automated eosinophil countOr dered By: Art Pa on 11-08-2023 Eosinophils (Bld) [#/Vol] 0.0 10*3/uL Normal 0.0-0.45 [facility] Comment on above: Performed By: #### C MP, ETOH, CBC #### [address] Automated monocyte %Ordered By: Art Pa on 11-08-2023 Monocytes/100 WBC (Bld) 7.5 % Normal . [facility] Comment on above: Performed By: #### C MP, ETOH, CBC #### [facility] [address] Automated neutrophil %Ordere d By: Art Pa on 11-08-2023 Neutrophils/100 WBC (Bld) 69.7 % Normal . [facility] Comment on above: Performed By: #### C MP, ETOH, CBC #### [facility] [address] Bacteria [Presence] in Urine by AutomatedOrdered By: Art Pa on 11-08-2023 Bacteria Auto Ql (U) Rare [HPF] None Seen [facility] Barbiturates [Presence] in U rine by Screen methodOrdered By: Art Pa on 11-08-2023 Barbiturates Screen Ql (U) Negative Negative [facility] Benzodiazepines Screen Ql (U )Ordered By: Art Pa on 11-08-2023 Benzodiazepines Ql (U) Negative Negative [facility] Benzoylecgonine [Presence] i n Urine by Screen methodOrdered By: Art Pa on 11-08-2023 Benzoylecgonine Screen Ql (U) Negative Negative [facility] Bilirubin Test strip Ql (U)O rdered By: Art Pa on 11-08-2023 Bilirubin Ql (U) Negative Negative [facility] Bilirubin.total [Mass/volume ] in Serum or PlasmaOrdered By: Art Pa on 11-08-2023 Bilirubin [Mass/Vol] 0.5 mg/dL Normal 0.3-1.0 [facility] Comment on above: Performed By: #### C MP, ETOH, CBC #### [facility] [address] [place] [address] [place] Calcium [Mass/volume] in Ser um or PlasmaOrdered By: Art Pa on 11-08-2023 Calcium [Mass/Vol] 9.6 mg/dL Normal 8.6-10.3 [facility] Comment on above: Performed By: #### C MP, ETOH, CBC #### [facility] [address] [place] [address] [place] Cannabinoids [Presence] in U rine by Screen methodOrdered By: Art Pa on 11-08-2023 Cannabinoids Screen Ql (U) Negative Negative [facility] Comment on above: These are unconfirme d results and should not be used for legal purposes. Drug Cut-Off Concentration: AMPH 1000 ng/mL SANDEEP 200 ng/mL JERSON 200 ng/mL COCM 300 ng/mL OP 300 ng/mL PCP 25 ng/mL THC 20 ng/mL Carbon dioxide, total [Moles /volume] in Serum or PlasmaOrdered By: Art Pa on 11-08-2023 CO2 [Moles/Vol] 29.1 mmol/L Normal 21.0-31.0 [facility] Comment on above: Performed By: #### C MP, ETOH, CBC #### [facility] [address] [place] [address] [place] Chloride [Moles/volume] in S monse or PlasmaOrdered By: Art Pa on 11-08-2023 Chloride [Moles/Vol] 101 mmol/L Normal 98-107 [facility] Comment on above: Performed By: #### C MP, ETOH, CBC #### [facility] [address] [place] [address] [place] Cholesterol [Mass/volume] in Serum or PlasmaOrdered By: Geo Loomis on 11-08-2023 Cholesterol [Mass/Vol] 162 mg/dL Normal 140-200 [facility] Comment on above: Chol less than 200 m g/dl low riskChol 201-239 mg/dl borderline riskChol 240 mg/dl and greater high risk Order Comment: KAYLIE Erwin Comment use from ER Result Comment: Chol less than 200 mg/dl low risk Chol 201-239 mg/dl borderline risk Chol 240 mg/dl and greater high risk Performed By: #### C MP, ETOH, CBC #### [facility] [address] [place] [address] [place] Cholesterol in LDL Calc [Mas s/Vol]Ordered By: Geo Loomis on 11-08-2023 Cholesterol in LDL [Mass/Vol] 86 mg/dL 0-100 [facility] Comment on above: LDL ATP III CLASSIFI CATIONLDL less than 100 mg/dL OptimalLDL 100-129 mg/dL Near or above optimalLDL 130-159 mg/dL Borderline highLDL 160-189 mg/dL HighLDL greater than 189 mg/dL Very high Cholesterol in VLDL Calc [Ma ss/Vol]Ordered By: Geo Loomis on 11-08-2023 Cholesterol in VLDL [Mass/Vol] 26 mg/dL [facility] Color of Urine by AutoOrdere d By: Art Pa on 11-08-2023 Color (U) Yellow Normal Yellow [facility] Comment on above: Order Comment: Name Collection Type:: Clean-Voided Midstream Performed By: #### U HCG, CUU, ADDONUAPLUS, URDS #### [address] Complete Blood Count Auto Di ffon 11-08-2023 Mean Corpuscular HGB Conc 33.2 g/dL Normal 32.0-35.0 [facility] Comment on above: Performed By: #### C MP, ETOH, CBC #### [address] Monocytes/100 WBC (Bld) 17.72 % Normal 0.00-20.00 [facility] Comment on above: Performed By: #### C MP, ETOH, CBC #### [address] NRBC% 0.0 /100{WBC} Normal 0-0.5 [facility] Comment on above: Performed By: #### C MP, ETOH, CBC #### [address] Comprehensive Metabolic Pane seng 11-08-2023 Albumin [Mass/Vol] 4.1 g/dL Normal 3.5-5.7 [facility] Comment on above: Performed By: #### C MP, ETOH, CBC #### [place] [address] [place] Creatinine Clr Calc Pharmacy 97.34 Normal [facility] Comment on above: Result Comment: PERF ORMED BY: [place] [address] PATHOLOGIST [employer]IP[employer] DANNIE MOODY M.D. Performed By: #### C MP, ETOH, CBC #### [address] GFR/1.73 sq M.predicted MDRD (S/P/Bld) [Vol rate/Area] mL/min/{1.73_m2} Normal [facility] Comment on above: Performed By: #### C MP, ETOH, CBC #### [facility] [address] Creatinine [Mass/volume] in Serum or PlasmaOrdered By: Art Pa on 11-08-2023 Creatinine [Mass/Vol] 0.91 mg/dL Normal 0.60-1.20 [facility] Comment on above: Performed By: #### C MP, ETOH, CBC #### [facility] [address] Dipstick and Microscopicon 0 11-08-2023 Bacteria,Urine Rare Normal None Seen [facility] Comment on above: Order Comment: Name Collection Type:: Clean-Voided Midstream Performed By: #### U HCG, CUU, ADDONUAPLUS, URDS #### [facility] [address] Bilirubin,Urine Negative Normal Negative [facility] Comment on above: Order Comment: Name Collection Type:: Clean-Voided Midstream Performed By: #### U HCG, CUU, ADDONUAPLUS, URDS #### [facility] [address] [place] [address] [place] Glucose Ql (U) Normal Normal Normal [facility] Comment on above: Order Comment: Name Collection Type:: Clean-Voided Midstream Performed By: #### U HCG, CUU, ADDONUAPLUS, URDS #### [facility] [address] [place] [id number] [place] Hyaline Casts,Urine None Normal 0-8 [facility] Comment on above: Order Comment: Name Collection Type:: Clean-Voided Midstream Performed By: #### U HCG, CUU, ADDONUAPLUS, URDS #### [facility] [address] [place] [address] [place] Mucus,Urine Rare Normal [facility] Comment on above: Order Comment: Name Collection Type:: Clean-Voided Midstream Performed By: #### U HCG, CUU, ADDONUAPLUS, URDS #### [place] [address] [place] Nitrite,Urine Negative Normal Negative [facility] Comment on above: Order Comment: Name Collection Type:: Clean-Voided Midstream Performed By: #### U HCG, CUU, ADDONUAPLUS, URDS #### [place] [address] [place] Occult Blood,Urine 1+ High Negative [facility] Comment on above: Order Comment: Name Collection Type:: Clean-Voided Midstream Performed By: #### U HCG, CUU, ADDONUAPLUS, URDS #### [address] Protein,Urine Negative Normal Negative [facility] Comment on above: Order Comment: Name Collection Type:: Clean-Voided Midstream Performed By: #### U HCG, CUU, ADDONUAPLUS, URDS #### [address] RBC,Urine 3-4 Normal 0-4 [facility] Comment on above: Order Comment: Name Collection Type:: Clean-Voided Midstream Performed By: #### U HCG, CUU, ADDONUAPLUS, URDS #### [address] Specificy [place],Urine 1.018 Normal 1.001-1.030 [facility] Comment on above: Order Comment: Name Collection Type:: Clean-Voided Midstream Performed By: #### U HCG, CUU, ADDONUAPLUS, URDS #### [place] [address] [place] Squamous Epithelial Cell,Urine 3-4 High 0-2 [facility] Comment on above: Order Comment: Name Collection Type:: Clean-Voided Midstream Performed By: #### U HCG, CUU, ADDONUAPLUS, URDS #### [address] Urobilinogen,Urine Normal Normal Normal [facility] Comment on above: Order Comment: Name Collection Type:: Clean-Voided Midstream Performed By: #### U HCG, CUU, ADDONUAPLUS, URDS #### [address] WBC,Urine 5-9 High 0-4 [facility] Comment on above: Order Comment: Name Collection Type:: Clean-Voided Midstream Performed By: #### U HCG, CUU, ADDONUAPLUS, URDS #### [place] [address] [place] Drug Screen,Urineon 11-08-19 Amphetamine Screen,Urine Negative Normal Negative [facility] Comment on above: Performed By: #### U HCG, CUU, ADDONUAPLUS, URDS #### [address] Barbiturate Screen,Urine Negative Normal Negative [facility] Comment on above: Performed By: #### U HCG, CUU, ADDONUAPLUS, URDS #### [address] Benzodiazepines Screen,Urine Negative Normal Negative [facility] Comment on above: Performed By: #### U HCG, CUU, ADDONUAPLUS, URDS #### [address] Cannabinoid Screen,Urine Negative Normal Negative [facility] Comment on above: Result Comment: Thes e are unconfirmed results and should not be used for legal purposes. Drug Cut-Off Concentration: AMPH 1000 ng/mL SANDEEP 200 ng/mL JERSON 200 ng/mL COCM 300 ng/mL OP 300 ng/mL PCP 25 ng/mL THC 20 ng/mL PERFORMED BY: [place] [address] PATHOLOGIST [employer] DANNIE MOODY M.D. Performed By: #### U HCG, CUU, ADDONUAPLUS, URDS #### [address] Cocaine Screen,Urine Negative Normal Negative [facility] Comment on above: Performed By: #### U HCG, CUU, ADDONUAPLUS, URDS #### [facility] [address] Opiate Screen,Urine Negative Normal Negative [facility] Comment on above: Performed By: #### U HCG, CUU, ADDONUAPLUS, URDS #### [facility] [address] Phencyclidine Screen,Urine Negative Normal Negative [facility] Comment on above: Performed By: #### U HCG, CUU, ADDONUAPLUS, URDS #### [facility] [address] Epithelial cells.squamous [# /area] in Urine sediment by Automated countOrdered By: Art Pa on 11-08-2023 Epithelial cells.squamous Auto (Urine sed) [#/Area] 3-4 [HPF] High 0-2 [facility] Erythrocyte distribution wid th [Ratio] by Automated countOrdered By: Art Pa on 11-08-2023 Erythrocyte distribution width (RBC) [Ratio] 15.2 % Normal 11.9-15.3 [facility] Comment on above: Performed By: #### C MP, ETOH, CBC #### [facility] [address] [place] [address] Erythrocytes [#/area] in Uri ne sediment by Automated countOrdered By: Art Pa on 11-08-2023 RBC Auto (Urine sed) [#/Area] 3-4 [HPF] 0-4 [facility] Erythrocytes [#/volume] in B lood by Automated countOrdered By: Art Pa on 11-08-2023 RBC (Bld) [#/Vol] 4.66 10*6/uL Normal 3.60-5.00 [facility] Comment on above: Performed By: #### C MP, ETOH, CBC #### [facility] [address] Ethanol [Mass/volume] in Ser um or PlasmaOrdered By: Art Pa on 11-08-2023 Ethanol [Mass/Vol] mg/dL Normal [facility] Comment on above: Performed By: #### C MP, ETOH, CBC #### [facility] [address] [place] [address] [place] Ethanol [Mass/Vol] TNP [facility] Comment on above: Test not performed Ethyl Alcohol Profileon Percent Ethanol Not performed Normal [facility] Comment on above: Result Comment: PERF ORMED BY: [facility] [address] [place] [id number] PATHOLOGIST [employer]IP[employer] DANNIE MOODY M.D. Performed By: #### C MP, ETOH, CBC #### [facility] [address] [place] [address] [place] Glucose [Mass/volume] in Ser um or PlasmaOrdered By: Art Pa on 11-08-2023 Glucose [Mass/Vol] 102 mg/dL High 70-100 [facility] Comment on above: ADA recommended refe rence rangeRandom Glucose Reference Range is dependent on time and content of last meal. Glucose of more than 200 mg/dL in a nonstressed, ambulatory subject supports the diagnosis of Diabetes Mellitus. Result Comment: Elida om Glucose Reference Range is dependent on time and content of last meal. Glucose of more than 200 mg/dL in a nonstressed, ambulatory subject supports the diagnosis of Diabetes Mellitus. ADA recommended reference range Performed By: #### C MP, ETOH, CBC #### [facility] [address] [place] [address] [place] Glucose [Mass/volume] in Uri ne by Test stripOrdered By: Art Pa on 11-08-2023 Glucose Test strip (U) [Mass/Vol] Normal mg/dL Normal [facility] HCG ( test) IA.rapi d Ql (U)Ordered By: Art Pa on 11-08-2023 HCG ( test) Ql (U) Negative [facility] HCG,Urineon 11-08-2023 Beta HCG ( test) Ql (U) Negative Normal [facility] Comment on above: Order Comment: Name Collection Type:: Clean-Voided Midstream Result Comment: PERF ORMED BY: [facility] [address] [place] [address] PATHOLOGIST [employer]IP[employer] DANNIE MOODY M.D. Performed By: #### U HCG, CUU, ADDONUAPLUS, URDS #### [address] Hematocrit [Volume Fraction] of Blood by Automated countOrdered By: Art Pa on 11-08-2023 Hematocrit (Bld) [Volume fraction] 41.1 % Normal 34.0-46.4 [facility] Comment on above: Performed By: #### C MP, ETOH, CBC #### [address] Hemoglobin Test strip Ql (U) Ordered By: Art Pa on 11-08-2023 Hemoglobin Ql (U) 1+ High Negative [facility] Hemoglobin [Mass/volume] in BloodOrdered By: Art Pa on 11-08-2023 Hemoglobin (Bld) [Mass/Vol] 13.6 g/dL Normal 11.8-15.4 [facility] Comment on above: Performed By: #### C MP, ETOH, CBC #### [place] [address] [place] Hyaline casts [#/area] in Ur ine sediment by Automated countOrdered By: Art Pa on 11-08-2023 Hyaline casts Auto (Urine sed) [#/Area] None [LPF] 0-8 [facility] Ketones [Presence] in Urine by Test stripOrdered By: Art Pa on 11-08-2023 Ketones Ql (U) Negative Normal Negative [facility] Comment on above: Order Comment: Name Collection Type:: Clean-Voided Midstream Performed By: #### U HCG, CUU, ADDONUAPLUS, URDS #### [place] [address] [place] Leukocyte esterase [Presence ] in Urine by Test stripOrdered By: Art Pa on 11-08-2023 Leukocyte esterase Test strip Ql (U) 3+ High Negative [facility] Comment on above: Order Comment: Name Collection Type:: Clean-Voided Midstream Performed By: #### U HCG, CUU, ADDONUAPLUS, URDS #### [address] [address] [place] Leukocytes [#/area] in Urine sediment by Automated countOrdered By: Art Pa on 11-08-2023 WBC Auto (Urine sed) [#/Area] 5-9 [HPF] High 0-4 [facility] Leukocytes [#/volume] correc hemalatha for nucleated erythrocytes in Blood by Automated counOrdered By: Art Pa on 11-08-2023 WBC corrected for nucl RBC Auto (Bld) [#/Vol] 11.4 10*3/uL 3.8-11.6 [facility] Leukocytes [#/volume] in Blo od by Automated countOrdered By: Art Pa on 11-08-2023 WBC (Bld) [#/Vol] 11.4 10*3/uL Normal 3.8-11.6 [facility] Comment on above: Performed By: #### C MP, ETOH, CBC #### [facility] [address] Lipid Panelon 11-08-2023 LDL Cholesterol,Calculated 86 mg/dL Normal 0-100 [facility] Comment on above: Order Comment: KAYLIE Erwin Comment use from ER Result Comment: LDL ATP III CLASSIFICATION LDL less than 100 mg/dL Optimal LDL 100-129 mg/dL Near or above optimal LDL 130-159 mg/dL Borderline high LDL 160-189 mg/dL High LDL greater than 189 mg/dL Very high Performed By: #### C MP, ETOH, CBC #### [facility] [address] Triglyceride w/Reflex 133 mg/dL Normal 0-149 [facility] Comment on above: Order Comment: KAYLIE Erwin Comment use from ER Result Comment: TRIG ATP III CLASSIFICATION TRIG less than 150 mg/dL Normal TRIG 150-199 mg/dL Borderline high TRIG 200-500 mg/dL High TRIG greater than 500 mg/dL Very high Standard traceable to the Center for Disease Conrtrol and Prevention (CDC) test method. Performed By: #### C MP, ETOH, CBC #### [facility] [address] [place] [id number] [facility] VLDL CHOLESTEROL 26 mg/dL Normal [facility] Comment on above: Order Comment: FASTI NG Y Comment use from ER Performed By: #### C MP, ETOH, CBC #### [address] Lymphocytes [#/volume] in Bl ood by Automated countOrdered By: Art Pa on 11-08-2023 Lymphocytes (Bld) [#/Vol] 2.5 10*3/uL Normal 1.00-4.8 [facility] Comment on above: Performed By: #### C MP, ETOH, CBC #### [address] Lymphocytes/100 leukocytes i n Blood by Automated countOrdered By: Art Pa on 11-08-2023 Lymphocytes/100 WBC (Bld) 22.0 % Normal . [facility] Comment on above: Performed By: #### C MP, ETOH, CBC #### [address] MCH [Entitic mass] by Automa hemalatha countOrdered By: Art Pa on 11-08-2023 MCH (RBC) [Entitic mass] 29.3 pg Normal 24.7-34.3 [facility] Comment on above: Performed By: #### C MP, ETOH, CBC #### [address] MCHC Auto (RBC) [Mass/Vol]Or dered By: Art Pa on 11-08-2023 MCHC (RBC) [Mass/Vol] 33.2 g/dL 32.0-35.0 [facility] MCV [Entitic volume] by Auto mated countOrdered By: Art Pa on 11-08-2023 MCV (RBC) [Entitic vol] 88.1 fL Normal 80-100 [facility] Comment on above: Performed By: #### C MP, ETOH, CBC #### [address] Monocyte distribution width [Entitic volume] in Blood by AutomatedOrdered By: Art Pa on 11-08-2023 Monocyte distribution width Auto (Bld) [Entitic vol] 17.72 % 0.00-20.00 [facility] Mucus [Presence] in Urine by AutomatedOrdered By: Art Pa on 11-08-2023 Mucus Auto Ql (U) Rare [LPF] [facility] Neutrophils [#/volume] in Bl ood by Automated countOrdered By: Art Pa on 11-08-2023 Neutrophils (Bld) [#/Vol] 7.9 10*3/uL High 1.8-7.7 [facility] Comment on above: Performed By: #### C MP, ETOH, CBC #### [facility] [address] Nitrite Test strip Ql (U)Ord ered By: Art Pa on 11-08-2023 Nitrite Ql (U) Negative Negative [facility] No Panel InformationOrdered By: Art Pa on 11-08-2023 Estimated GFR (CKD-EPI) > 60.0 mL/Min [facility] Creatinine Clearance (Chem 97.34 [facility] Nucleated erythrocytes [Pres ence] in Blood by Automated countOrdered By: Art Pa on 11-08-2023 Nucleated RBC Auto Ql (Bld) 0.0 /100{WBC} 0-0.5 [facility] Opiates [Presence] in Urine by Screen methodOrdered By: Art Pa on 11-08-2023 Opiates Screen Ql (U) Negative Negative [facility] Phencyclidine Screen Ql (U)O rdered By: Art Pa on 11-08-2023 Phencyclidine Ql (U) Negative Negative [facility] Platelet mean volume [Entiti c volume] in Blood by Automated countOrdered By: Art Pa on 11-08-2023 Platelet mean volume (Bld) [Entitic vol] 7.9 fL Normal 6.3-10.7 [facility] Comment on above: Performed By: #### C MP, ETOH, CBC #### [facility] [address] [place] [address] [place] Platelets [#/volume] in Bloo d by Automated countOrdered By: Atr Pa on 11-08-2023 Platelets (Bld) [#/Vol] 286 10*3/uL Normal 150-450 [facility] Comment on above: Performed By: #### C MP, ETOH, CBC #### [address] Potassium [Moles/volume] in Serum or PlasmaOrdered By: Art Pa on 11-08-2023 Potassium [Moles/Vol] 4.1 mmol/L Normal 3.5-5.1 [facility] Comment on above: Performed By: #### C MP, ETOH, CBC #### [address] Protein Test strip (U) [Mass /Vol]Ordered By: Art Pa on 11-08-2023 Protein (U) [Mass/Vol] Negative Negative [facility] Protein [Mass/volume] in Ser um or PlasmaOrdered By: Art Pa on 11-08-2023 Protein [Mass/Vol] 7.5 g/dL Normal 6.4-8.9 [facility] Comment on above: Performed By: #### C MP, ETOH, CBC #### [address] Serum globulin measurement b y calculation (mass/volume)Ordered By: Art Pa on 11-08-2023 Globulin (S) [Mass/Vol] 3.4 g/dL Normal [facility] Comment on above: Performed By: #### C MP, ETOH, CBC #### [address] Serum or plasma albumin/glob ulin mass ratioOrdered By: Art Pa on 11-08-2023 Albumin/Globulin [Mass ratio] 1.2 {ratio} Normal [facility] Comment on above: Performed By: #### C MP, ETOH, CBC #### [address] Serum or plasma anion gap de terminationOrdered By: Art Pa on 11-08-2023 Anion gap [Moles/Vol] 10.0 mmol/L Normal 6.0-15.0 [facility] Comment on above: Performed By: #### C MP, ETOH, CBC #### [address] Serum or plasma high density lipoprotein (HDL) cholesterol measurementOrdered By: Geo Loomis on 11-08-2023 Cholesterol in HDL [Mass/Vol] 49 mg/dL Normal 23-92 [facility] Comment on above: HDL CHOL ATP-III CLA SSIFICATION Cardiovascular RiskHDL > or equal to 60 mg/dL LOWHDL < 40 mg/dL HIGH Order Comment: KAYLIE Erwin Comment use from ER Result Comment: HDL CHOL ATP-III CLASSIFICATION Cardiovascular Risk HDL > or equal to 60 mg/dL LOW HDL < 40 mg/dL HIGH Performed By: #### C MP, ETOH, CBC #### [facility] [address] Serum or plasma total choles terol/high density lipoprotein (HDL) cholesterol mass ratOrdered By: Geo Loomis on 11-08-2023 Cholesterol.total/[place]ina sterol in HDL [Mass ratio] 3.3 {ratio} Normal <5.0 [facility] Comment on above: Order Comment: KAYLIE Erwin Comment use from ER Performed By: #### C MP, ETOH, CBC #### [address] Sodium [Moles/volume] in Ser um or PlasmaOrdered By: Art Pa on 11-08-2023 Sodium [Moles/Vol] 136 mmol/L Normal 136-145 [facility] Comment on above: Performed By: #### C MP, ETOH, CBC #### [address] Specific gravity Test strip (U) [Rel density]Ordered By: Art Pa on 11-08-2023 Specific gravity (U) [Rel density] 1.018 1.001-1.030 [facility] Thyroid Stim Hormone w/Rflxo n 11-08-2023 Thyroid Stim Hormone w/Rflx 3.00 u[iU]/mL Normal 0.45-5.33 [facility] Comment on above: Order Comment: KAYLIE Erwin Comment use from ER Performed By: #### C MP, ETOH, CBC #### [place] [address] [place] Thyrotropin [Units/volume] i n Serum or PlasmaOrdered By: Geo Loomis on 11-08-2023 TSH Qn 3.00 m[IU]/L 0.45-5.33 [facility] Triglyceride [Mass/volume] i n Serum or PlasmaOrdered By: Geo Loomis on 11-08-2023 Triglyceride [Mass/Vol] 133 mg/dL 0-149 [facility] Comment on above: TRIG ATP III CLASSIF ICATIONTRIG less than 150 mg/dL NormalTRIG 150-199 mg/dL Borderline highTRIG 200-500 mg/dL High TRIG greater than 500 mg/dL Very highStandard traceable to the Center for Disease Conrtrol and Prevention (CDC) test method. Urea nitrogen [Mass/volume] in Serum or PlasmaOrdered By: Art Pa on 11-08-2023 Urea nitrogen [Mass/Vol] 13 mg/dL Normal 7-25 [facility] Comment on above: Performed By: #### C MP, ETOH, CBC #### [facility] [address] [place] [address] Urine Cultureon 11-08-2023 Bacteria identified Cx Nom (U) >100,000 colonies/ml mixed bacterial skin contaminants 2 Days PERFORMED BY: [place] [address] PATHOLOGIST [employer]AB STRIPPER DANNIE MOODY M.D. Normal [facility] Comment on above: Performed By: #### U HCG, CUU, ADDONUAPLUS, URDS #### [facility] [address] [place] [address] Urine appearanceOrdered By: Art Pa on 11-08-2023 Appearance (U) Clear Normal Clear [facility] Comment on above: Order Comment: Name Collection Type:: Clean-Voided Midstream Performed By: #### U HCG, CUU, ADDONUAPLUS, URDS #### [facility] [address] [place] [address] Urine culture routineOrdered By: Art Pa on 11-08-2023 Bacteria identified Cx Nom (U) 2 Days [facility] Urobilinogen Test strip (U) [Mass/Vol]Ordered By: Art Pa on 11-08-2023 Urobilinogen (U) [Mass/Vol] Normal mg/dL Normal [facility] Vitamin D 25 Hydroxy Totalon 11-08-2023 Vitamin D 25 Hydroxy Total 49.5 ng/mL Normal 30-100 [facility] Comment on above: Order Comment: KAYLIE Erwin Comment use from ER Result Comment: JAYSON MIN D STATUS 25(OH)VITAMIN D RANGE (ng/mL) Deficient <20 Insufficient 20 to <30 Sufficient 30 to 100 Reference: Marsha Hillman, Ez MULTANI, et al. Evaluation,treatment, and prevention of vitamin D deficiency; an Endocrine Society clinical practice guideline. JCEM. 2010; 96(7):1911-. PERFORMED BY: [place] [address] PATHOLOGIST [employer] STRIPPER DANNIE MOODY M.D. Performed By: #### C MP, ETOH, CBC #### [facility] [address] Vitamin D+Metabolites [Mass/ volume] in Serum or PlasmaOrdered By: Geo Loomis on 11-08-2023 Vitamin D+Metabolites [Mass/Vol] 49.5 ng/mL 30-100 [facility] Comment on above: VITAMIN D STATUS 25( [place])VITAMIN D RANGE (ng/mL) Deficient <20 Insufficient 20 to <30Sufficient 30 to 100Reference: Marsha Hillman Bischoff-Ferrari HA, et al. Evaluation,treatment, and prevention of vitamin D deficiency; an Endocrine Society clinical practice guideline. JCEM. 2010; 96(7):1911-30. pH of Urine by Test stripOrd ered By: Art Pa on 11-08-2023 pH (U) 5.0 [pH] Normal 5.0-9.0 [facility] Comment on above: Order Comment: Name Collection Type:: Clean-Voided Midstream Performed By: #### U HCG, CUU, ADDONUAPLUS, URDS #### [facility] [address] [place] [address] [facility] Alanine aminotransferase [En zymatic activity/volume] in Serum or PlasmaOrdered By: Antolin Abarca on 05-24-2022 ALT [Catalytic activity/Vol] 15 U/L 7-52 [facility] Albumin [Mass/volume] in Ser um or Plasma by Bromocresol green (BCG) dye binding methoOrdered By: Antolin Abarca on 05-24-2022 Albumin BCG dye [Mass/Vol] 4.0 g/dL 3.5-5.7 [facility] Alkaline phosphatase [Enzyma tic activity/volume] in Serum or PlasmaOrdered By: Antolin Abarca on 05-24-2022 ALP [Catalytic activity/Vol] 61 U/L 34-104 [facility] Amphetamine Screen Ql (U)Ord ered By: Antolin Abarca on 05-24-2022 Amphetamines Ql (U) Negative Negative [facility] Aspartate aminotransferase [ Enzymatic activity/volume] in Serum or PlasmaOrdered By: Antolin Abarca on 05-24-2022 AST [Catalytic activity/Vol] 19 U/L 13-39 [facility] Automated epithelial cells c ount in urine sediment (number/area)Ordered By: Antolin Abarca on 05-24-2022 Epithelial cells Auto (Urine sed) [#/Area] Rare [HPF] 0-2 [facility] Automated erythrocytes count in urine sediment (number/area)Ordered By: Antolin Abarca on 05-24-2022 RBC Auto (Urine sed) [#/Area] 1-2 [HPF] 0-4 [facility] Automated leukocytes count i n urine sediment (number/area)Ordered By: Antolin Abarca on 05-24-2022 WBC Auto (Urine sed) [#/Area] 1-2 [HPF] 0-4 [facility] Automated urine hyaline cast s count (number/volume)Ordered By: Antolin Abarca on 05-24-2022 Hyaline casts Auto (U) [#/Vol] Rare [LPF] 0-1 [facility] Barbiturates [Presence] in U rine by Screen methodOrdered By: Antolin Abarca on 05-24-2022 Barbiturates Screen Ql (U) Negative Negative [facility] Basophils Auto (Bld) [#/Vol] Ordered By: Antolin Abarca on 05-24-2022 Basophils (Bld) [#/Vol] 0.0 10*3/uL 0.0-0.2 [facility] Basophils/100 WBC Auto (Bld) Ordered By: Antolin Abarca on 05-24-2022 Basophils/100 WBC (Bld) 0.4 % . [facility] Benzodiazepines Screen Ql (U )Ordered By: Antolin Abarca on 05-24-2022 Benzodiazepines Ql (U) Negative Negative [facility] Benzoylecgonine [Presence] i n Urine by Screen methodOrdered By: Antolin Abarca on 05-24-2022 Benzoylecgonine Screen Ql (U) Negative Negative [facility] Bilirubin Test strip Ql (U)O rdered By: Antolin Abarca on 05-24-2022 Bilirubin Ql (U) Negative Negative [facility] Bilirubin.total [Mass/volume ] in Serum or PlasmaOrdered By: Antolin Abarca on 05-24-2022 Bilirubin [Mass/Vol] 0.3 mg/dL 0.3-1.0 [facility] COVID-19 SOFIAOrdered By: Hay Abarca on 05-24-2022 SARS-CoV+SARS-CoV-2 (COVID-19) Ag IA.rapid Ql (Resp) Negative Negative [facility] Comment on above: This is a duplicate Rayna SARS Antigen (SKYLA) result to be used for statistical tracking purpose only. Calcium [Mass/volume] in Ser um or PlasmaOrdered By: Antolin Abarca on 05-24-2022 Calcium [Mass/Vol] 9.3 mg/dL 8.6-10.3 [facility] Cannabinoids [Presence] in U rine by Screen methodOrdered By: Antolin Abarca on 05-24-2022 Cannabinoids Screen Ql (U) Negative Negative [facility] Comment on above: These are unconfirme d results and should not be used for legal purposes. Drug Cut-Off Concentration: AMPH 1000 ng/mL SANDEEP 200 ng/mL JRESON 200 ng/mL COCM 300 ng/mL OP 300 ng/mL PCP 25 ng/mL THC 20 ng/mL Carbon dioxide, total [Moles /volume] in Serum or PlasmaOrdered By: Antolin Abarca on 05-24-2022 CO2 [Moles/Vol] 20.9 mmol/L 21.0-31.0 [facility] Chloride [Moles/volume] in S monse or PlasmaOrdered By: Antolin Abarca on 05-24-2022 Chloride [Moles/Vol] 108 mmol/L 98-107 [facility] Color Auto (U)Ordered By: Hay Abarca on 05-24-2022 Color (U) Yellow Yellow [facility] Creatinine [Mass/volume] in Serum or PlasmaOrdered By: Antolin Abarca on 05-24-2022 Creatinine [Mass/Vol] 0.79 mg/dL 0.60-1.20 [facility] Eosinophils Auto (Bld) [#/Vo l]Ordered By: Antolin Abarca on 05-24-2022 Eosinophils (Bld) [#/Vol] 0.3 10*3/uL 0.0-0.45 [facility] Eosinophils/100 WBC Auto (Bl d)Ordered By: Antolin Abarca on 05-24-2022 Eosinophils/100 WBC (Bld) 4.2 % . [facility] Erythrocyte distribution wid th Auto (RBC) [Ratio]Ordered By: Antolin Abarca on 05-24-2022 Erythrocyte distribution width (RBC) [Ratio] 15.6 % 11.9-15.3 [facility] Ethanol [Mass/volume] in Ser um or PlasmaOrdered By: Antolin Abarca on 05-24-2022 Ethanol [Mass/Vol] 163 mg/dL [facility] Ethanol [Mass/Vol] 0.163 % [facility] Globulin Calc (S) [Mass/Vol] Ordered By: Antolin Abarca on 05-24-2022 Globulin (S) [Mass/Vol] 2.8 g/dL [facility] Glucose [Mass/volume] in Ser um or PlasmaOrdered By: Antolin Abarca on 05-24-2022 Glucose [Mass/Vol] 83 mg/dL 74-109 [facility] Comment on above: ADA recommended refe rence rangeRandom Glucose Reference Range is dependent on time and content of last meal. Glucose of more than 200 mg/dL in a nonstressed, ambulatory subject supports the diagnosis of Diabetes Mellitus. HCG ( test) IA.rapi d Ql (U)Ordered By: Antolin Abarca on 05-24-2022 HCG ( test) Ql (U) Negative [facility] Hematocrit Auto (Bld) [Volum e fraction]Ordered By: Antolin Abarca on 05-24-2022 Hematocrit (Bld) [Volume fraction] 40.1 % 34.0-46.4 [facility] Hemoglobin [Mass/volume] in BloodOrdered By: Antolin Abarca on 05-24-2022 Hemoglobin (Bld) [Mass/Vol] 13.2 g/dL 11.8-15.4 [facility] Ketones Auto test strip (U) [Mass/Vol]Ordered By: Antolin Abarca on 05-24-2022 Ketones (U) [Mass/Vol] Negative Negative [facility] - Chemistry and C hemistry - challengeOrdered By: Antolin Abarca on 05-24-2022 GFR/1.73 sq M.predicted MDRD (S/P/Bld) [Vol rate/Area] mL/min/{1.73_m2} [facility] Leukocytes [#/volume] correc hemalatha for nucleated erythrocytes in Blood by Automated counOrdered By: Antolin Abarca on 05-24-2022 WBC corrected for nucl RBC Auto (Bld) [#/Vol] 7.0 10*3/uL 3.8-11.6 [facility] Lymphocytes Auto (Bld) [#/Vo l]Ordered By: Antolin Abarca on 05-24-2022 Lymphocytes (Bld) [#/Vol] 2.1 10*3/uL 1.00-4.8 [facility] Lymphocytes/100 WBC Auto (Bl d)Ordered By: Antolin Abarca on 05-24-2022 Lymphocytes/100 WBC (Bld) 29.2 % . [facility] MCH Auto (RBC) [Entitic mass ]Ordered By: Antolin Abarca on 05-24-2022 MCH (RBC) [Entitic mass] 29.2 pg 24.7-34.3 [facility] MCHC Auto (RBC) [Mass/Vol]Or dered By: Antolin Abarca on 05-24-2022 MCHC (RBC) [Mass/Vol] 33.0 g/dL 32.0-35.0 [facility] MCV Auto (RBC) [Entitic vol] Ordered By: Antolin Abarca on 05-24-2022 MCV (RBC) [Entitic vol] 88.6 fL 80-100 [facility] Monocyte distribution width [Entitic volume] in Blood by AutomatedOrdered By: Antolin Abarca on 05-24-2022 Monocyte distribution width Auto (Bld) [Entitic vol] 17.73 % 0.00-20.00 [facility] Monocytes Auto (Bld) [#/Vol] Ordered By: Antolin Abarca on 05-24-2022 Monocytes (Bld) [#/Vol] 0.6 10*3/uL 0.0-0.8 [facility] Monocytes/100 WBC Auto (Bld) Ordered By: Antolin Abarca on 05-24-2022 Monocytes/100 WBC (Bld) 8.2 % . [facility] Neutrophils Auto (Bld) [#/Vo l]Ordered By: Antolin Abarca on 05-24-2022 Neutrophils (Bld) [#/Vol] 4.1 10*3/uL 1.8-7.7 [facility] Neutrophils/100 WBC Auto (Bl d)Ordered By: Antolin Abarca on 05-24-2022 Neutrophils/100 WBC (Bld) 58.0 % . [facility] Nitrite Test strip Ql (U)Ord ered By: Antolin Abarca on 05-24-2022 Nitrite Ql (U) Negative Negative [facility] No Panel InformationOrdered By: Antolin Abarca on 05-24-2022 Pharmacy Creatinine Clearance (Chem 107.39 [facility] SARS Antigen (LFIA) [facility] Nucleated erythrocytes [Pres ence] in Blood by Automated countOrdered By: Antolin Abarca on 05-24-2022 Nucleated RBC Auto Ql (Bld) 0.0 /100{WBC} 0-0.5 [facility] Opiates [Presence] in Urine by Screen methodOrdered By: Antolin Abarca on 05-24-2022 Opiates Screen Ql (U) Negative Negative [facility] Phencyclidine Screen Ql (U)O rdered By: Antolin Abarca on 05-24-2022 Phencyclidine Ql (U) Negative Negative [facility] Platelet mean volume Auto (B ld) [Entitic vol]Ordered By: Antolin Abarca on 05-24-2022 Platelet mean volume (Bld) [Entitic vol] 7.3 fL 6.3-10.7 [facility] Platelets Auto (Bld) [#/Vol] Ordered By: Antolin Abarca on 05-24-2022 Platelets (Bld) [#/Vol] 285 10*3/uL 150-450 [facility] Potassium [Moles/volume] in Serum or PlasmaOrdered By: Antolin Abarca on 05-24-2022 Potassium [Moles/Vol] 4.4 mmol/L 3.5-5.1 [facility] Protein Auto test strip (U) [Mass/Vol]Ordered By: Antolin Abarca on 05-24-2022 Protein (U) [Mass/Vol] Negative Negative [facility] Protein [Mass/volume] in Ser um or PlasmaOrdered By: Antolin Abarca on 05-24-2022 Protein [Mass/Vol] 6.8 g/dL 6.4-8.9 [facility] RBC Auto (Bld) [#/Vol]Ordere d By: Antolin Abarca on 05-24-2022 RBC (Bld) [#/Vol] 4.53 10*6/uL 3.60-5.00 [facility] Serum or plasma albumin/glob ulin mass ratioOrdered By: Antolin Abarca on 05-24-2022 Albumin/Globulin [Mass ratio] 1.4 {ratio} [facility] Serum or plasma anion gap de terminationOrdered By: Antolin Abarca on 05-24-2022 Anion gap [Moles/Vol] 13.5 mmol/L 6.0-15.0 [facility] Sodium [Moles/volume] in Ser um or PlasmaOrdered By: Antolin Abarca on 05-24-2022 Sodium [Moles/Vol] 138 mmol/L 136-145 [facility] Specific gravity Auto test s trip (U) [Rel density]Ordered By: Antolin Abarca on 05-24-2022 Specific gravity (U) [Rel density] 1.000 1.001-1.030 [facility] Urea nitrogen [Mass/volume] in Serum or PlasmaOrdered By: Antolin Abarca on 05-24-2022 Urea nitrogen [Mass/Vol] 8 mg/dL 7-25 [facility] Urine bacteria detection by automated methodOrdered By: Antolin Abarca on 05-24-2022 Bacteria Auto Ql (U) Rare None Seen [facility] Urine clarity by refractomet ry automatedOrdered By: Antolin Abarca on 05-24-2022 Clarity Refractometry automated (U) Clear Clear [facility] Urine glucose measurement by automated test strip (mass/volume)Ordered By: Antolin Abarca on 05-24-2022 Glucose Auto test strip (U) [Mass/Vol] Normal mg/dL Normal [facility] Urine hemoglobin detection b y automated test stripOrdered By: Antolin Abarca on 05-24-2022 Hemoglobin Auto test strip Ql (U) 2+ Negative [facility] Urine leukocyte esterase det ection by automated test stripOrdered By: Antolin Abarca on 05-24-2022 Leukocyte esterase Auto test strip Ql (U) 2+ Negative [facility] Urobilinogen Auto test strip (U) [Mass/Vol]Ordered By: Antolin Abarca on 05-24-2022 Urobilinogen (U) [Mass/Vol] Normal mg/dL Normal [facility] WBC Auto (Bld) [#/Vol]Ordere d By: Antolin Abarca on 05-24-2022 WBC (Bld) [#/Vol] 7.0 10*3/uL 3.8-11.6 [facility] pH Auto test strip (U)Ordere d By: Antolin Abarca on 05-24-2022 pH (U) 6.0 [pH] 5.0-9.0 [facility] Cholesterol [Mass/volume] in Serum or PlasmaOrdered By: Geo Loomis on 05-11-2022 Cholesterol [Mass/Vol] 154 mg/dL 140-200 [facility] Comment on above: Chol less than 200 m g/dl low riskChol 201-239 mg/dl borderline riskChol 240 mg/dl and greater high risk Cholesterol in LDL Calc [Mas s/Vol]Ordered By: Geo Loomis on 05-11-2022 Cholesterol in LDL [Mass/Vol] 76 mg/dL 0-100 [facility] Comment on above: LDL ATP III CLASSIFI CATIONLDL less than 100 mg/dL OptimalLDL 100-129 mg/dL Near or above optimalLDL 130-159 mg/dL Borderline highLDL 160-189 mg/dL HighLDL greater than 189 mg/dL Very high Cholesterol in VLDL Calc [Ma ss/Vol]Ordered By: Geo Loomis on 05-11-2022 Cholesterol in VLDL [Mass/Vol] 24 mg/dL [facility] Serum or plasma high density lipoprotein (HDL) cholesterol measurementOrdered By: Geo Loomis on 05-11-2022 Cholesterol in HDL [Mass/Vol] 54 mg/dL 35-85 [facility] Comment on above: HDL CHOL ATP-III CLA SSIFICATION Cardiovascular RiskHDL > or equal to 60 mg/dL LOWHDL < 40 mg/dL HIGH Serum or plasma total choles terol/high density lipoprotein (HDL) cholesterol mass ratOrdered By: Geo Loomis on 05-11-2022 Cholesterol.total/Polina sterol in HDL [Mass ratio] 2.9 {ratio} <5.0 [facility] Thyrotropin [Units/volume] i n Serum or PlasmaOrdered By: Geo Loomis on 05-11-2022 TSH Qn 1.87 m[IU]/L 0.45-5.33 [facility] Triglyceride [Mass/volume] i n Serum or PlasmaOrdered By: Geo Loomis on 05-11-2022 Triglyceride [Mass/Vol] 122 mg/dL 0-149 [facility] Comment on above: TRIG ATP III CLASSIF ICATIONTRIG less than 150 mg/dL NormalTRIG 150-199 mg/dL Borderline highTRIG 200-500 mg/dL High TRIG greater than 500 mg/dL Very highStandard traceable to the Center for Disease Conrtrol and Prevention (CDC) test method. Vitamin D+Metabolites [Mass/ volume] in Serum or PlasmaOrdered By: Geo Loomis on 05-11-2022 Vitamin D+Metabolites [Mass/Vol] 22.0 ng/mL 30-100 [facility] Comment on above: VITAMIN D STATUS 25( [place])VITAMIN D RANGE (ng/mL) Deficient <20 Insufficient 20 to <30Sufficient 30 to 100Reference: Braeden MF,Marsha NC, Ez MULTANI, et al. Evaluation,treatment, and prevention of vitamin D deficiency; an Endocrine Society clinical practice guideline. JCEM. 2010; 96(7):1911-30. Alanine aminotransferase [En zymatic activity/volume] in Serum or PlasmaOrdered By: Antolin Abarca on 05-10-2022 ALT [Catalytic activity/Vol] 17 U/L 7-52 [facility] Albumin [Mass/volume] in Ser um or Plasma by Bromocresol green (BCG) dye binding methoOrdered By: Antolin Abarca on 05-10-2022 Albumin BCG dye [Mass/Vol] 4.0 g/dL 3.5-5.7 [facility] Alkaline phosphatase [Enzyma tic activity/volume] in Serum or PlasmaOrdered By: Antolin Abarca on 05-10-2022 ALP [Catalytic activity/Vol] 63 U/L 34-104 [facility] Amphetamine Screen Ql (U)Ord ered By: Antolin Abarca on 05-10-2022 Amphetamines Ql (U) Negative Negative [facility] Aspartate aminotransferase [ Enzymatic activity/volume] in Serum or PlasmaOrdered By: Antolin Abarca on 05-10-2022 AST [Catalytic activity/Vol] 17 U/L 13-39 [facility] Automated erythrocytes count in urine sediment (number/area)Ordered By: Antolin Abarca on 05-10-2022 RBC Auto (Urine sed) [#/Area] 20-49 [HPF] 0-4 [facility] Automated leukocytes count i n urine sediment (number/area)Ordered By: Antolin Abarca on 05-10-2022 WBC Auto (Urine sed) [#/Area] 20-49 [HPF] 0-4 [facility] Automated urine hyaline cast s count (number/volume)Ordered By: Antolin Abarca on 05-10-2022 Hyaline casts Auto (U) [#/Vol] None seen [LPF] 0-1 [facility] Barbiturates [Presence] in U rine by Screen methodOrdered By: Antolin Abarca on 05-10-2022 Barbiturates Screen Ql (U) Negative Negative [facility] Basophils Auto (Bld) [#/Vol] Ordered By: Antolin Abarca on 05-10-2022 Basophils (Bld) [#/Vol] 0.1 10*3/uL 0.0-0.2 [facility] Basophils/100 WBC Auto (Bld) Ordered By: Antolin Abarca on 05-10-2022 Basophils/100 WBC (Bld) 0.8 % . [facility] Benzodiazepines Screen Ql (U )Ordered By: Antolin Abarca on 05-10-2022 Benzodiazepines Ql (U) Negative Negative [facility] Benzoylecgonine [Presence] i n Urine by Screen methodOrdered By: Antolin Abarca on 05-10-2022 Benzoylecgonine Screen Ql (U) Negative Negative [facility] Bilirubin Test strip Ql (U)O rdered By: Antolin Abarca on 05-10-2022 Bilirubin Ql (U) Negative Negative [facility] Bilirubin.total [Mass/volume ] in Serum or PlasmaOrdered By: Antolin Abarca on 05-10-2022 Bilirubin [Mass/Vol] 0.9 mg/dL 0.3-1.0 [facility] Calcium [Mass/volume] in Ser um or PlasmaOrdered By: Antolin Abarca on 05-10-2022 Calcium [Mass/Vol] 9.5 mg/dL 8.6-10.3 [facility] Cannabinoids [Presence] in U rine by Screen methodOrdered By: Antolin Abarca on 05-10-2022 Cannabinoids Screen Ql (U) Negative Negative [facility] Comment on above: These are unconfirme d results and should not be used for legal purposes. Drug Cut-Off Concentration: AMPH 1000 ng/mL SANDEEP 200 ng/mL JERSON 200 ng/mL COCM 300 ng/mL OP 300 ng/mL PCP 25 ng/mL THC 20 ng/mL Carbon dioxide, total [Moles /volume] in Serum or PlasmaOrdered By: Antolin Abarca on 05-10-2022 CO2 [Moles/Vol] 28.1 mmol/L 21.0-31.0 [facility] Casts typing in urine sedime nt by light microscopyOrdered By: Antolin Abarca on 05-10-2022 Casts LM Nom (Urine sed) None seen [LPF] None Seen [facility] Chloride [Moles/volume] in S monse or PlasmaOrdered By: Antolin Abarca on 05-10-2022 Chloride [Moles/Vol] 103 mmol/L 98-107 [facility] Color Auto (U)Ordered By: Hay Abarca on 05-10-2022 Color (U) Dark yellow Yellow [facility] Creatinine [Mass/volume] in Serum or PlasmaOrdered By: Antolin Abarca on 05-10-2022 Creatinine [Mass/Vol] 0.81 mg/dL 0.60-1.20 [facility] Eosinophils Auto (Bld) [#/Vo l]Ordered By: Antolin Abarca on 05-10-2022 Eosinophils (Bld) [#/Vol] 0.2 10*3/uL 0.0-0.45 [facility] Eosinophils/100 WBC Auto (Bl d)Ordered By: Antolin Abarca on 05-10-2022 Eosinophils/100 WBC (Bld) 1.9 % . [facility] Erythrocyte distribution wid th Auto (RBC) [Ratio]Ordered By: Antolin Abarca on 05-10-2022 Erythrocyte distribution width (RBC) [Ratio] 15.1 % 11.9-15.3 [facility] Ethanol [Mass/volume] in Ser um or PlasmaOrdered By: Antolin Abarca on 05-10-2022 Ethanol [Mass/Vol] mg/dL [facility] Ethanol [Mass/Vol] TNP [facility] Comment on above: Test not performed Globulin Calc (S) [Mass/Vol] Ordered By: Antolin Abarca on 05-10-2022 Globulin (S) [Mass/Vol] 2.9 g/dL [facility] Glucose [Mass/volume] in Ser um or PlasmaOrdered By: Antolin Abarca on 05-10-2022 Glucose [Mass/Vol] 87 mg/dL 74-109 [facility] Comment on above: ADA recommended refe rence rangeRandom Glucose Reference Range is dependent on time and content of last meal. Glucose of more than 200 mg/dL in a nonstressed, ambulatory subject supports the diagnosis of Diabetes Mellitus. HCG ( test) IA.rapi d Ql (U)Ordered By: Antolin Abarca on 05-10-2022 HCG ( test) Ql (U) Negative [facility] Hematocrit Auto (Bld) [Volum e fraction]Ordered By: Antolin Abarca on 05-10-2022 Hematocrit (Bld) [Volume fraction] 42.9 % 34.0-46.4 [facility] Hemoglobin [Mass/volume] in BloodOrdered By: Antolin Abarca on 05-10-2022 Hemoglobin (Bld) [Mass/Vol] 14.1 g/dL 11.8-15.4 [facility] Ketones Auto test strip (U) [Mass/Vol]Ordered By: Antolin Abarca on 05-10-2022 Ketones (U) [Mass/Vol] Trace Negative Fi [facility] - Chemistry and C hemistry - challengeOrdered By: Antolin Abarca on 05-10-2022 GFR/1.73 sq M.predicted MDRD (S/P/Bld) [Vol rate/Area] mL/min/{1.73_m2} [facility] Leukocytes [#/volume] correc hemalatha for nucleated erythrocytes in Blood by Automated counOrdered By: Antolin Abarca on 05-10-2022 WBC corrected for nucl RBC Auto (Bld) [#/Vol] 10.7 10*3/uL 3.8-11.6 [facility] Lymphocytes Auto (Bld) [#/Vo l]Ordered By: Antolin Abarca on 05-10-2022 Lymphocytes (Bld) [#/Vol] 2.3 10*3/uL 1.00-4.8 [facility] Lymphocytes/100 WBC Auto (Bl d)Ordered By: Antolin Abarca on 05-10-2022 Lymphocytes/100 WBC (Bld) 21.1 % . [facility] MCH Auto (RBC) [Entitic mass ]Ordered By: Antolin Abarca on 05-10-2022 MCH (RBC) [Entitic mass] 29.1 pg 24.7-34.3 [facility] MCHC Auto (RBC) [Mass/Vol]Or dered By: Antolin Abarca on 05-10-2022 MCHC (RBC) [Mass/Vol] 32.9 g/dL 32.0-35.0 [facility] MCV Auto (RBC) [Entitic vol] Ordered By: Antolin Abarca on 05-10-2022 MCV (RBC) [Entitic vol] 88.3 fL 80-100 [facility] Monocyte distribution width [Entitic volume] in Blood by AutomatedOrdered By: Antolin Abarca on 05-10-2022 Monocyte distribution width Auto (Bld) [Entitic vol] 18.66 % 0.00-20.00 [facility] Monocytes Auto (Bld) [#/Vol] Ordered By: Antolin Abarca on 05-10-2022 Monocytes (Bld) [#/Vol] 0.9 10*3/uL 0.0-0.8 [facility] Monocytes/100 WBC Auto (Bld) Ordered By: Antolin Abarca on 05-10-2022 Monocytes/100 WBC (Bld) 8.7 % . [facility] Neutrophils Auto (Bld) [#/Vo l]Ordered By: Antolin Abarca on 05-10-2022 Neutrophils (Bld) [#/Vol] 7.2 10*3/uL 1.8-7.7 [facility] Neutrophils/100 WBC Auto (Bl d)Ordered By: Antolin Abarca on 05-10-2022 Neutrophils/100 WBC (Bld) 67.5 % . [facility] Nitrite Test strip Ql (U)Ord ered By: Antolin Abarca on 05-10-2022 Nitrite Ql (U) Negative Negative [facility] No Panel InformationOrdered By: Antolin Abarca on 05-10-2022 Pharmacy Creatinine Clearance (Chem 102.62 [facility] Nucleated erythrocytes [Pres ence] in Blood by Automated countOrdered By: Antolin Abarca on 05-10-2022 Nucleated RBC Auto Ql (Bld) 0.0 /100{WBC} 0-0.5 [facility] Opiates [Presence] in Urine by Screen methodOrdered By: Antolin Abarca on 05-10-2022 Opiates Screen Ql (U) Negative Negative [facility] Phencyclidine Screen Ql (U)O rdered By: Antolin Abarca on 05-10-2022 Phencyclidine Ql (U) Negative Negative [facility] [facility] Platelet mean volume Auto (B ld) [Entitic vol]Ordered By: Antolin Abarca on 05-10-2022 Platelet mean volume (Bld) [Entitic vol] 6.8 fL 6.3-10.7 [facility] Platelets Auto (Bld) [#/Vol] Ordered By: Antolin Abarca on 05-10-2022 Platelets (Bld) [#/Vol] 267 10*3/uL 150-450 [facility] Potassium [Moles/volume] in Serum or PlasmaOrdered By: Antolin Abarca on 05-10-2022 Potassium [Moles/Vol] 4.7 mmol/L 3.5-5.1 [facility] Protein Auto test strip (U) [Mass/Vol]Ordered By: Antolin Abarca on 05-10-2022 Protein (U) [Mass/Vol] 30 mg/dL Negative [facility] Protein [Mass/volume] in Ser um or PlasmaOrdered By: Antolin Abarca on 05-10-2022 Protein [Mass/Vol] 6.9 g/dL 6.4-8.9 [facility] RBC Auto (Bld) [#/Vol]Ordere d By: Antolin Abarca on 05-10-2022 RBC (Bld) [#/Vol] 4.86 10*6/uL 3.60-5.00 [facility] Serum or plasma albumin/glob ulin mass ratioOrdered By: Antolin Abarca on 05-10-2022 Albumin/Globulin [Mass ratio] 1.4 {ratio} [facility] Serum or plasma anion gap de terminationOrdered By: Antolin Abarca on 05-10-2022 Anion gap [Moles/Vol] 9.6 mmol/L 6.0-15.0 [facility] Sodium [Moles/volume] in Ser um or PlasmaOrdered By: Antolin Abarca on 05-10-2022 Sodium [Moles/Vol] 136 mmol/L 136-145 [facility] Specific gravity Auto test s trip (U) [Rel density]Ordered By: Antolin Abarca on 05-10-2022 Specific gravity (U) [Rel density] 1.028 1.001-1.030 [facility] Squamous epithelial cells de tection in urine sediment by light microscopyOrdered By: Antolin Abarca on 05-10-2022 Epithelial cells.squamous LM Ql (Urine sed) 3-4 [HPF] 0-2 [facility] Urea nitrogen [Mass/volume] in Serum or PlasmaOrdered By: Antolin Abarca on 03-07-2023 Urea nitrogen [Mass/Vol] 11 mg/dL 7-25 [facility] Urine bacteria detection by automated methodOrdered By: Antolin Abarca on 05-10-2022 Bacteria Auto Ql (U) 1+ None Seen [facility] Urine clarity by refractomet ry automatedOrdered By: Antolin Abarca on 05-10-2022 Clarity Refractometry automated (U) Cloudy Clear [facility] Urine culture routineOrdered By: Antolin Abarca on 05-10-2022 Bacteria identified Cx Nom (U) 2 Days [facility] Urine glucose measurement by automated test strip (mass/volume)Ordered By: Antolin Abarca on 05-10-2022 Glucose Auto test strip (U) [Mass/Vol] Normal mg/dL Normal [facility] Urine hemoglobin detection b y automated test stripOrdered By: Antolin Abarca on 05-10-2022 Hemoglobin Auto test strip Ql (U) 2+ Negative [facility] Urine leukocyte esterase det ection by automated test stripOrdered By: Antolin Abarca on 05-10-2022 Leukocyte esterase Auto test strip Ql (U) 3+ Negative [facility] Urobilinogen Auto test strip (U) [Mass/Vol]Ordered By: Antolin Abarca on 05-10-2022 Urobilinogen (U) [Mass/Vol] Normal mg/dL Normal [facility] WBC Auto (Bld) [#/Vol]Ordere d By: Antolin Abarca on 05-10-2022 WBC (Bld) [#/Vol] 10.7 10*3/uL 3.8-11.6 [facility] pH Auto test strip (U)Ordere d By: Antolin Abarca on 05-10-2022 pH (U) 6.0 [pH] 5.0-9.0 [facility] Covid-19 PCR (CVDTBH)on SARS-CoV-2 (COVID-19) RNA PITO+probe Ql (Unsp spec) Detected Abnormal NOT DETECTED [facility] Comment on above: Result Comment: This test is not yet approved or cleared by the [place] FDA. When there are no FDA-approved or cleared tests available, and other criteria are met, FDA can make tests available under an emergency access mechanism called an Emergency Use Authorization (EUA). The EUA for this test is supported by the Aerial Photogrammetrist of Health and Human Service's (HHS's) declaration [...] Performed By: #### L IPA, CMP #### [facility] [address] [place] [address] Dr. Toy Macario INFLUENZA A AND B AGon 03-13 INFLUANEGH SEE BELOW Normal [facility] Comment on above: Result Comment: Nega tive for Flu A protein angiten. Infection due to Flu A cannot be ruled out. Flu A angiten in the sample may be below the detection limit of the test. Performed By: #### C MP, LIPA #### [facility] [address] [place] [address] Dr. Toy Macario INFLUBNEGH SEE BELOW Normal [facility] Comment on above: Result Comment: Nega tive for Flu B protein antigen. Infection due to Flu B cannot be ruled out. Flu B antigen in the sample may be below the detection limit of the test. Performed By: #### C MP, LIPA #### [facility] [address] [place] [address] Dr. Toy Macario INFLUENZA A AG Negative Normal NEGATIVE SEE COMMENT [facility] Comment on above: Performed By: #### C MP, LIPA #### [facility] [address] [place] [address] Dr. Toy Macario INFLUENZA B AG Negative Normal NEGATIVE SEE COMMENT [facility] Comment on above: Performed By: #### C MP, LIPA #### [facility] [address] [place] [address] Dr. Toy Macario XR CHEST 1 Von [...] URIEL SPIVEY Date: 2022-03-13 15:46 Normal [facility] Progress Noteson 02-14-2022 Environment [employer] Land[employer]er Authentication Interface Message Text This encounter was opened in error. Patient was a No-Show. Please disregard. Called, directly to busy signal. 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 Status: Final result ??? Visible to patient: Yes (not seen) ??? Dx: Liver cyst; Cyst of gallbladder ??? 0 Result Notes ??? Component ??? Case Report Surgical Pathology Report ? Case: [id number] ? Authorizing Provider: ???Dennis Sarmiento MD ? Collected: ? 07/30/2021 1554 ? Ordering Location: ? [facility] Main OR ?Received: ? [...] lymph nodes or masses grossly. ??? Sections: ???Horticulture Instructor ??? A1. ???Fibrotic tissue (X) ? B. [...] tumor, it is inked green. ??? Sections: ???Horticulture Instructor ??? B1. ???Cystic lesion, fibrotic area (X) [...] M.D ? Clinical Information ??? Resulting Agency [facility] ? Specimen Collected: 07/30/21 15:54 Last Resulted: 08/05/21 08:46 ??? Order Details ??? View Encounter ??? Lab and Collection Details ??? Routing ??? Result History ? Scans on Order [id number] ??? Document on 08/05/2021 ???8:46 AM by Marc Ricketts, Treatment Recommendations and NCCN: Plan no surgical in (more content not included)... Normal [facility] [facility] Progress Noteson 08-24-2021 Environment Friendly Landscape Designer Authentication Interface Message Text Patient was identified by name and date of . 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 Location of Patient: Home of patient Surgery Follow Up Feeling well since surgery. Still hurting but she is starting to feel better. [facility] week for staple removal. SPECIMEN FOR SURGICAL PATH: [id number] Order: [id number] Collected 07/30/2021 15:54 ??? Status: Final result ??? Visible to patient: Yes (not seen) ??? Dx: Liver cyst; Cyst of gallbladder ??? 0 Result Notes Component Case Report Surgical Pathology Report ? Case: [id number] ? Authorizing Provider: ???Dennis Sarmiento MD ? [...] lymph nodes or masses grossly. ??? Sections: Horticulture Instructor ??? A1. Fibrotic tissue (X) ? B. [...] tumor, it is inked green. ??? Sections: Horticulture Instructor ??? B1. Cystic lesion, fibrotic area (X) [...] Ivey M.D ? Clinical Information Resulting Agency [facility] Specimen Collected: 07/30/21 15:54 Last Resulted: 08/05/21 08:46 Order Details ??? View Encounter ??? Lab and Collection Details ??? Routing ??? Result History ??? Scans on Order [id number] Document on 08/05/2021 ???8:46 AM by Marc Ricketts MD ??? 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 Follow up in 6 months with a televisit in person if needed. Dennis Sarmiento MD, FA (more content not included)... Normal [facility] [email or web address] [facility] CYTOLOGY FLUIDOrdered By: Kerwin Ram on 08-04-2021 Appearance (U) Mucoid [facility] Work Phone: Case Report Medical Cytology Report Case: [id number] Authorizing Provider: Dennis Sarmiento MD Collected: 07/30/2021 1619 Ordering Location: [facility] Main OR Received: 08/03/2021 0855 Pathologist: Ting Ram MD Specimen: Fluid, Cyst (Cytology), liver cyst fluid [email or web address] Work Phone: Cell Block q5yfwQKyCCFhpRK7XJPy XG Cfb1orj3ZsaHLnvZUvMWpj jRPudwPklm80lHH2mX90FO 6fGVQdYpI6YMLxdwG3Dnn1 QKUzBMUjuVZdI695b6bdf8 nlnjJbwPN1vEmsDMHlxrvy WfN4UZvfBTGjcmwiQDm9HS jmFSKvsAX9YIDxcFOqZ7Hz OFBqFY8figk9SDU9GOlyVH PcRpJ3VZZipUDxSGYqdBfz AZnjr544IUB6YdKsLMBsux XfiUhreO5wWmIyZZWObS3x ZCwgZmlicmluLCBncmFudW xhciBkZWJyaXMsIHJhcmUg mZRgvl1jpKMdBGWtYTQzMJ BkZWdlbmVyYXRlZCBpbmZs HK0uDMEtuyemE2VtkVYhPY Bhcn0= [facility] Work Phone: Clinical Information [facility] Work Phone: Color (U) Red [facility] Work Phone: Final Diagnosis h4ozsNGpYERic8jpMGDd bG FuZzEwMzNcZnRuYmpcdWMx IHtccnRmMVxlcGljOTkwMV qnrcHdWVZhlLZvD1Ypokmo FWoiLT1pSI5yqMabeMVztH VsFOCjYhLzu1lhe158wOMk d8whOETEecfpaOy5jHxeY5 9kf8T6ShttK99bmERxVFN5 MJSkPJFecSXkNPCeNSV7PT RuvXEuE9zsYIJyQA4kqlsy XIsaNRvhLIZttVB7NXVupJ PpW4ZoFCAvBLvrWMPzgos1 YfIuHk0lyHZcdWusFXmyCV JkXHBsYWluXGJcZnMyMCAi Goc4mKScTJF1d8YuSFJ8aM 1it0s2MUkotZz6WGPaM7ci dCBmbHVpZCJccGFyXGIwXH ZxhaAWCFornWg2XEIsg7Gb nIIyoYxrMY1ajU6qzIKbYM Kux3IayD43hfSjCKXsuTQq IGZldyBkZWdlbmVyYXRlZC QxUYifnmefDF8pKACxsjXy mNQvpk6aqVEwCYXmKOHgPQ IwSQDuckJgTQTkKPXpyW0d TGVcnPcxcC2mXQPcq8utI4 idayZlv3R5WH4kuHNyDYYu hlMzQ9AfICEwmTwoRimsZ1 iwfU19MFCqfsF9WALtf31d XuRgWTO2xEEdTBIjeU05SW xwYXJccGFyXHBhciBQcmlt BNB4JKEydmBdaeEdGoKNDE Y9v7WaDbGmheJiCHDTRDuI T1UXHBbwOZZ2g6tepFWwAH HolUDzPgRnEODrFSKjw6ti ZGVmbGFuZzEwMzNcZnRuYm zsjPBmCIGbHrMqb9mij385 lPYlm3gjZKVaJdZ0qNDnYE ZocPFjD620JMDkTYotw1hw e1YkNAHrbDMbb2G7NISPcg cdbAw0zAxnE16yw7X1Docj T8mfHNKwTFFmA4IbST8tNV SuJqw9XOP3LSI4FOPdVTu0 JQvwXONaWXXtGrf2QDu9NW tccmVkMFxncmVlbjBcYmx1 HLVqM342HAR0xBsrl1djXD V4NEGbCQEoDkTrKc7eyMXk U800ISWfFVRQOFLkxBh5YH NwvfWmqqQkwLFQk082U905 n3wfTFKcspCxrWeSkzqnl1 zhH426QKUmaPMudzIfGdQl BQGefGEhpXS8GWXdUL7gap rjUAzqXGeaTWNsruX9KVPb sJWlN9PkASXgDQ6jrekvGA V2UBtyRANxUNH4SnOrTZKz y9Nuelz7TrMsrb0ooq49ZH L1l3TepHxfDTP2VPF4DhAu Rb3maORzILCbCX9tMrRtjR IeGYLyok82dEutUXdrlrYb eX6bCyEbONSkoHPeBZBqIJ 2npPInZBIsfU2vrlqtAWVg YnJkcmhlYWRccGdicmRyZm 0ehEhtLGR3RNwtM7gokB9m CaT0CZzpD5sdmQ0ePIf3GS bfcHN4DREveQ6dHO9jjuja v8exMKkcKIjsISUqzmB0dq I1BGUksVRtH7CltW4rXTQf DD9fevsxr0ajQOC8GByzFX HsTBF4OlErDGZvm5Omcoy6 JrDyx1HrsPUiJEwjC48cd8 22KTWhixUvS9ekwNOqjzok cAVjrbzlJZydxpJ7UWUhZJ BsYWluXGYxXGZzMjJcbGFu ZzEwMzNcaGljaFxmMVxkYm KcYORtOAsuI0pcIxBgBoMw MstwMJSbjRqfkK3sMiOnYk RkYFbgQJ3xWXGyL6twkQPa FFXmFQErR9nnHqPzoI5tgS khBGoimgCrGANgHLO8ib6t lXMikGp7FQOkD81sCNDLxC PrOeyqEUy2EN8rSXFqdCCd JGGBUZXrahWdXr5mKE3tJJ IyLlxwYXJccGFyXHBsYWlu XGYxXGZzMThcbGFuZzEwMz NcaGljaFxmMVxkYmNoXGYx ULutH3pzDnYbN9YpEXPfLH hcaSBJIGNlcnRpZnkgdGhh dCBJIHBlcnNvbmFsbHkgY2 9uZHVjdGVkIHRoZSBkaWFn xd9zpKccCDD9XTz2OXCbn0 7ng0FbmMgmZVGcx9LuEXOq ZWNpbWVuKHMpIGFuZCBoYX ZlIHJlbmRlcmVkIHRoZSBm hX4cjIXbcCNihq3myARxHH OuJoHjjVytkA0nBjVrMbKb PmuwEP7sTSOwT4dprEWjBP UwENBxF2gpYkMyzX7qbRsn EIqwjfRxYXWieubiHDH6sI == [facility] Work Phone: Gross Description w8hbtDLpJXOobXC4JSSd XG Wnk8qxt9AcjPSeiERyGCdt rQLwqbGfih24fGV5tK64CB 8wCMYqCtU1VOQluuZ6Xgv9 DPOmQVWinMIlR166b5lfh3 ytbeOmnCC2fDelRKGvqnxt RgK5JUfkDJSggxexNBj0LV jpWZXywFB6GJInsMElG1Fx GEExEI9xmyx8KFL8UThqAO IsEzH9EYXgtIDpIUAsgZos UDhqy755BNY1RrCnHHVusy KbyFrxaN0vXlCuFVTrYWQr dS1ZcyNvHTVzxNWzCQNlIK BhzuUpAjHNzBAmvH7jWIJg eGVkIGFuZCBzdGFpbmVkIH dlsIdfUTBdBQ9dT41yNH13 LPT0YWizUezyTNAhE0JorR QElF1uopLxckDxRNIhQJMr n6ZcBVmnzVnlBAEjq89pCA DLKFrzWBObr8QoXY0hjKFl aWFsIGZpeGVkIGluIDEwJS HcMZD8fvEpZIN1HdCybbAt BATink6rzEfkJGFtawFpBN QztU88clHzXKWilr5= [facility] Work Phone: Volume 1 mL [facility] [...] Inclusion of Race in Diagnosing Kidney Disease. [place] Journal of Kidney Diseases 202;79(2):268-88.e1. 2. N Engl J Med 1 Vol. 385 Issue 19 Pages 2539-6413 Glucose [Mass/Vol] 88 mg/dL 68 - 110 [...] [Mass/Vol] 0.20 mg/dL 0.10 - 0.30 mg/dL [facility] Interpretation and review of laboratory results Abnormal [facility] Protein [Mass/Vol] 4.5 g/dL Low 6.2 - 8.3 g/dL [facility] Blood bankon Major crossmatch [Interp] Compatible (E) [facility] Major crossmatch [Interp] Compatible (E) [facility] MAGNESIUMon 08-03-2021 Interpretation and review of laboratory results Normal [facility] Magnesium [Mass/Vol] 1.9 mg/dL 1.6 - 2 .8 mg/dL [facility] No Panel Informationon 08-03 [facility] Blood Product Code [id number] [facility]alt Blood Product Description FFP [facility] Blood Product Unit Type 7300 M [facility] Comment on above: B Pos Status Released to avail [facility] alth [facility] Blood Product Code [id number] [facility] Blood Product Description Red Blood Cells [facility] Blood Product Unit Type 7300 M [facility] Comment on above: B Pos Status Released to avail [facility] alth [facility] Blood Product Code [id number] [facility] Blood Product Description Red Blood Cells [facility] Blood Product Unit Type 7300 M [facility] Comment on above: B Pos Status Transfused [facility] PLASMA STATUSon 08-03-2021 Blood product unit Nom (BPU) [ID] [id number] [facility] Blood product unit Nom (BPU) [ID] [id number] [facility] RED BLOOD CELL UNIT STATUSon 08-03-2021 Blood product unit Nom (BPU) [ID] [id number] [facility] Blood product unit Nom (BPU) [ID] [id number] [facility] Blood product unit Nom (BPU) [ID] [id number] [facility] Blood product unit Nom (BPU) [ID] [id number] [facility] Basic metabolic 2000 panelon 08-02-2021 Anion gap [Moles/Vol] 11 mmol/L [facility] Calcium [Mass/Vol] 8.4 mg/dL 8.4 - 10. 4 mg/dL [facility] Chloride [Moles/Vol] 106 mmol/L 97 - 11 1 mmol/L [facility] CO2 [Moles/Vol] 25 mmol/L 21 - 30 mmol/L [facility] Creatinine [Mass/Vol] 0.66 mg/dL 0.50 - 1.10 mg/dL [facility] GFR/1.73 sq M.predicted MDRD (S/P/Bld) [Vol [...] Inclusion of Race in Diagnosing Kidney Disease. [place] Journal of Kidney Diseases 2021;79(2):268-88.e1. 2. N Engl J Med 2020 Vol. 385 Issue 19 Pages 6351-5012 Glucose [Mass/Vol] 85 mg/dL 68 - 110 [...] [#/Vol] 7.8 10*3/uL 4.5 - 11.5 K/uL [facility] CT ABDOMEN/PELVIS W/ CONTRAS TOrdered By: Mag Ordoñez on 08-02-2021 CT DLP 902.8 (mGy.cm) [facility] Work Phone: CT Series Abdomen [facility] Work Phone: CTDI VOL 16.5 (mGy) [facility] Work Phone: PHANTOM TYPE IEC Body Dosimetry Phantom [facility] Work Phone: [facility] Work Phone: CT ABDOMEN/PELVIS [...] contrast to assess anatomy Additional history per [facility] surgery note 07/30/2021: Status post laparoscopy with [...] contrast to assess anatomy Additional history per [facility] surgery note 07/30/2021: Status post laparoscopy with [...] to patient's known (more content not included)... [facility] HEPATIC FUNCTION PANELon Albumin [Mass/Vol] 2.6 g/dL Low 3.4 - 5.1 g/dL [facility] ALP [Catalytic activity/Vol] 35 U/L Low [facility] ALT [Catalytic activity/Vol] 34 U/L [facility] AST [Catalytic activity/Vol] 37 U/L [facility] Bilirubin [Mass/Vol] 0.8 mg/dL 0.1 - 1 .5 mg/dL [facility] Bilirubin.direct [Mass/Vol] 0.20 mg/dL 0.10 - 0.30 mg/dL [facility] Interpretation and review of laboratory results Abnormal [facility] Protein [Mass/Vol] 4.4 g/dL Low 6.2 - 8.3 g/dL [facility] MAGNESIUMon 08-02-2021 Interpretation and review of laboratory results Normal [facility] Magnesium [Mass/Vol] 1.9 mg/dL 1.6 - 2 .8 mg/dL [facility] Basic metabolic 2000 panelon 08-01-2021 Anion [...] presentation. Reference: 1. Jordan C, Conner M, iGna DC, et al.. A Unifying Approach for GFR Estimation: Recommendations of the NKF-ASN Task Force on Reassessing the Inclusion of Race in Diagnosing Kidney Disease. [place] Journal of Kidney Diseases 202;79(2):268-88.e1. 2. N Engl J Med 1 Vol. 385 Issue 19 Pages 7150-2734 Glucose [Mass/Vol] 101 mg/dL 68 - 110 [...] [facility] RBC (Bld) [#/Vol] 2.66 10*6/uL Low [facility] WBC (Bld) [#/Vol] 7.6 10*3/uL 4.5 - 11.5 [facility]LV[facility] W/ CONTRAS Ton 08-01-2021 Radiology Study observation (narrative) [facility] HEPATIC FUNCTION PANELon Albumin [Mass/Vol] 2.7 g/dL Low 3.4 - 5.1 g/dL [facility] ALP [Catalytic activity/Vol] 32 U/L Low [facility] ALT [Catalytic activity/Vol] 40 U/L [facility] AST [Catalytic activity/Vol] 53 U/L High [facility] Bilirubin [Mass/Vol] 1.0 mg/dL 0.1 - 1 .5 mg/dL [facility] Bilirubin.direct [Mass/Vol] 0.20 mg/dL 0.10 - 0.30 mg/dL [facility] Interpretation and review of laboratory results [facility]normal [facility] Protein [Mass/Vol] 3.7 g/dL Low 6.2 - 8.3 g/dL [facility] MAGNESIUMon 08-01-2021 Interpretation and review of laboratory results Normal [facility] Magnesium [Mass/Vol] 1.9 mg/dL 1.6 - 2 .8 mg/dL [facility] No Panel Informationon 08-01 [facility] PARTIAL THROMBOPLASTIN TIMEo n 08-01-2021 aPTT Coag (Bld) [Time] 29 s [facility] Interpretation and review of laboratory results [facility] PROTHROMBIN TIME AND INRon 0 08-01-2021 INR [...] Inclusion of Race in Diagnosing Kidney Disease. [place] Journal of Kidney Diseases 202;79(2):268-88.e1. 2. N Engl J Med 1 Vol. 385 Issue 19 Pages 9844-1236 Glucose [Mass/Vol] 129 mg/dL High 68 - 110 mg/dL [facility] Interpretation and review of laboratory results Abnormal [facility] Potassium [Moles/Vol] 4.6 mmol/L 3.3 - 5.3 mmol/L [facility] Sodium [Moles/Vol] 135 mmol/L 135 - 148 mmol/L [facility] Urea nitrogen [Mass/Vol] 10 mg/dL 8 - 22 mg/dL [facility] CALCIUM, IONIZEDon Calcium.ionized (Bld) [Moles/Vol] 1.21 mmol/L 1.10 - 1.40 mmol/L [facility] CBC panel Auto (Bld)on 07-31 Erythrocyte distribution width (RBC) [Ratio] 15.1 % High 11.5 - 14.5 % [facility] Hematocrit (Bld) [Volume fraction] 28.7 % Low 36.0 - 46.0 % [facility] Hemoglobin (Bld) [Mass/Vol] 9.9 g/dL Low 12.0 - 15.0 g/dL [facility] Interpretation and review of laboratory results Abnormal [facility] MCH (RBC) [Entitic mass] 28.8 pg 26.0 - 34.0 pg [facility] MCHC (RBC) [Mass/Vol] 34.6 g/dL 32.0 - 35.9 g/dL [facility] MCV (RBC) [Entitic vol] 83 fL 80 - 100 fL [facility] Platelet mean volume (Bld) [Entitic vol] 7.3 fL Low 7.5 - 11.2 fL [facility] Platelets (Bld) [#/Vol] 207 10*3/uL 150 - 400 K/uL [facility] RBC (Bld) [#/Vol] 3.45 10*6/uL Low [facility] WBC (Bld) [#/Vol] 9.5 10*3/uL 4.5 - 11.5 K/uL [facility] CO-OXIMETERon 07-31-2021 Carboxyhemoglobin (BldA) [Mass fraction] <0.7 <3.0 % [facility] Hemat[facility] (BldA) [Volume fraction] 30.6 % Low 36.0 - 46.0 % [facility] Hemoglobin (Bld) [Mass/Vol] 9.9 g/dL Low 12.0 - 16.0 g/dL [facility] Interpretation and review of laboratory results Abnormal [facility] Methemoglobin (BldA) [Mass fraction] 1.5 % <3.0 [facility] Oxyhemoglobin (BldA) [Mass fraction] 95.9 % 95.0 - 100.0 % [facility] ELECTROLYTESon 07-31-2021 Chloride [Moles/Vol] 107 mmol/L 97 - 11 1 mmol/L [facility] Potassium [Moles/Vol] 4.1 mmol/L 3.3 - 5.3 mmol/L [facility] Sodium [Moles/Vol] 138 mmol/L 135 - 148 mmol/L [facility] GLUCOSE, WHOLE BLOODon 07-31 Glucose [Mass/Vol] 147 mg/dL High 68 - 98 mg/dL [facility] HEPATIC FUNCTION PANELon Albumin [Mass/Vol] 3.7 g/dL 3.4 - 5.1 g/dL [facility] ALP [Catalytic activity/Vol] 30 U/L Low [facility] ALT [Catalytic activity/Vol] 55 U/L High [facility] AST [Catalytic activity/Vol] 102 U/L High [facility] Bilirubin [Mass/Vol] 1.8 mg/dL High 0.1 - 1 .5 mg/dL [facility] Bilirubin.direct [Mass/Vol] 0.40 mg/dL High 0.10 - 0.30 mg/dL [facility] Protein [Mass/Vol] 4.7 g/dL Low 6.2 - 8.3 g/dL [facility] LACTIC ACIDon 07-31-2021 Lactate [Moles/Vol] 1.9 mmol/L 0.5 - 2. 0 mmol/L [facility] Laboratory - Chemistry and C hemistry - challengeOrdered By: Feliciano Cutler on 07-31-2021 HCO3 (Bld) [Moles/Vol] 21 mmol/L Low 22 - 28 mmol/L [facility] MAGNESIUMon 07-31-2021 Magnesium [Mass/Vol] 1.5 mg/dL Low 1.6 - 2 .8 mg/dL [facility] No Panel Informationon 07-31 Interpretation and review of laboratory results Abnormal [facility] Interpretation and review of laboratory results Normal [facility] Interpretation and review of laboratory results Abnormal [facility] BLOOD GAS, ARTERIALon 2021 Base excess Calc [...] 170 mg/dL High 68 - 98 mg/dL [facility] Glucose [Mass/Vol] 187 mg/dL High 68 - 98 mg/dL [facility] Glucose [Mass/Vol] 192 mg/dL High 68 - 98 mg/dL [facility] LACTIC ACIDon 07-30-2021 Lactate [Moles/Vol] 1.9 mmol/L 0.5 - 2. 0 mmol/L [facility] Lactate [Moles/Vol] 1.3 mmol/L 0.5 - 2. 0 mmol/L [facility] Lactate [Moles/Vol] 1.5 mmol/L 0.5 - 2. 0 mmol/L [facility] Laboratory - Blood bankon ABO and Rh group Nom (Bld) Blood group B Rh(D) positive [facility] Laboratory - Chemistry and C hemistry - challengeon 07-30-2021 HCO3 (Bld) [Moles/Vol] 19 mmol/L Low 22 - 28 mmol/L [facility] HCO3 (Bld) [Moles/Vol] 21 mmol/L Low 22 - 28 mmol/L [facility] Laboratory - Chemistry and C hemistry - challengeOrdered By: Melissa Moon on 07-30-2021 HCO3 (Bld) [Moles/Vol] 22 mmol/L 22 - 28 mmol/L [facility] No Panel Informationon 07-30 Interpretation and review of laboratory results Abnormal [facility] Interpretation and review of laboratory results Normal [facility] Interpretation and review of laboratory results Abnormal [facility] Interpretation and review of laboratory results Normal [facility] Interpretation and review of laboratory results Normal [facility] [facility] No Panel InformationOrdered By: Melissa Moon on 07-30-2021 Interpretation and review of laboratory results Abnormal [facility] RED BLOOD CELL COMPONENTon 0 07-30-2021 BB Order Item Product status info to follow [facility] BB Order Item Product status info to follow [facility] TRANSFUSE RED CELLSon 2021 [facility] TRANSFUSE RED CELLSOrdered B y: Adrian Bermudez on 07-30-2021 [facility] Work Phone: TYPE AND SCREENon 07-30-2021 Blood group antibody screen Ql Negative [facility] URINE HCG-IN OFFICEOrdered B y: Rachel Neville [...] [Mass/Vol] 14.2 ng/mL 10.3 - 219.0 ng/mL [facility] Interpretation and review of laboratory results [...] Control Positive Positive [facility]04 SARS-CoV-2 (COVID-19) RNA PITO+probe Ql (Unsp spec) Not detected Normal NOT DETECTED [facility] Comment on above: Result Comment: This test is not yet approved or cleared by the [place] FDA. When there are no FDA-approved or cleared tests available, and other criteria are met, FDA can make tests available under an emergency access mechanism called an Emergency Use Authorization (EUA). The EUA for this test is supported by the [place] of Health and Human Service's (HHS's) declaration [...] SARS-CoV-2. Performed By: #### C VDTBH #### [facility] [address] [place] [address] Dr. Toy Macario CBC AUTO DIFFon 04-22-2021 BASO # 0.1 103/ul Normal 0.0-0.1 [facility] Comment on above: Performed By: #### C BC #### [facility] [address] [address] [address] Toy Macario Basophils/100 WBC (Bld) 0.8 % Normal 0.2-2.0 [facility] Comment on above: Performed By: #### C BC #### [facility] [address] [place] [address] Dr. Toy Macario EO # 0.2 103/ul Normal 0.0-0.7 [facility] Comment on above: Performed By: #### C BC #### [facility] [address] [place] [address] Dr. Toy Macario Eosinophils/100 WBC (Bld) 2.5 % Normal 0.9-7.0 [facility] Comment on above: Performed By: #### C BC #### [facility] [address] [place] [address] Dr. Toy Macario Erythrocyte distribution width (RBC) [Ratio] 14.3 % Normal 11.0-15.0 [facility] Comment on above: Performed By: #### C BC #### [facility] [address] [place] [address] Dr. Toy Macario Hematocrit (Bld) [Volume fraction] 26.9 % Critically low 36.0-48.0 [facility] Comment on above: Performed By: #### C BC #### [facility] [address] [place] [address] Dr. Toy Macario Hemoglobin (Bld) [Mass/Vol] 7.7 g/dL Critically low 12.0-16.0 [facility] Comment on above: Performed By: #### C BC #### [facility] [address] [place] [address] Dr. oTy Macario IG # 0.04 10e3/ul Critically high 0.00-0.03 [facility] Comment on above: Performed By: #### C BC #### [facility] [address] [place] [address] Dr. Toy Macario IG % 0.7 % Critically high 0.0-0.5 [facility] Comment on above: Performed By: #### C BC #### [facility] [address] [place] [address] Dr. Toy Macario LYMPH # 1.2 103/ul Normal 1.2-3.8 [facility] Comment on above: Performed By: #### C BC #### [facility] [address] [place] [address] Dr. Toy Macario Lymphocytes/100 WBC (Bld) 19.2 % Critically low 20.5-60.0 [facility] Comment on above: Performed By: #### C BC #### [facility] [address] [place] [address] Dr. Toy Macario MANUAL DIFF REQ NO Normal [facility] Comment on above: Performed By: #### C BC #### [facility] [address] [place] [address] Dr. Toy Macario MCH (RBC) [Entitic mass] 27.6 pg Normal 26.7-34.0 [facility] Comment on above: Performed By: #### C BC #### [facility] [address] [place] [address] Dr. Toy Macario MCHC (RBC) [Mass/Vol] 28.6 g/dL Critically low 29.9-35.2 [facility] Comment on above: Performed By: #### C BC #### [facility] [address] [place] [address] Dr. Toy Macario MCV (RBC) [Entitic vol] 96.4 fL Normal 81.0-99.0 [facility] Comment on above: Performed By: #### C BC #### [facility] [address] [place] [address] Dr. Toy Macario MONO # 0.4 103/ul Normal 0.3-0.8 [facility] Comment on above: Performed By: #### C BC #### [facility] [address] [place] [address] Dr. Toy Macario Monocytes/100 WBC (Bld) 7.2 % Normal 1.7-12.0 [facility] Comment on above: Performed By: #### C BC #### [facility] [address] [place] [address] Dr. Toy Macario NEUT # 4.3 103/ul Normal 1.4-6.5 [facility] Comment on above: Performed By: #### C BC #### [facility] [address] [address] [address] Toy Macario Neutrophils/100 WBC (Bld) 69.6 % Normal 43.0-75.0 [facility] Comment on above: Performed By: #### C BC #### [facility] [address] [address] [address] Toy Macario Platelet mean volume (Bld) [Entitic vol] 10.0 fL Normal 9.5-13.5 [facility] Comment on above: Performed By: #### C BC #### [facility] [address] [address] [address] Toy Macario PLT 238 103/ul Normal 150-450 [facility] Comment on above: Performed By: #### C BC #### [facility] [address] [place] [address] Dr. Toy Macario RBC 2.79 106/ul Critically low 4.20-5.40 [facility] Comment on above: Performed By: #### C BC #### [facility] [address] [place] [address] Dr. Toy Macario WBC 6.1 103/ul Normal 4.0-11.0 [facility] Comment on above: Performed By: #### C BC #### [facility] [address] [place] [address] Dr. Toy Macario LIPASEon 04-22-2021 Lipase [Catalytic activity/Vol] 712.0 U/L Critically high 23.0-300.0 [facility] Comment on above: Performed By: #### L IPA, CMP #### [facility] [address] [place] [address] Dr. Toy Macario MAGNESIUMon 04-22-2021 Magnesium [Mass/Vol] 2.6 mg/dL Critically high 1.6-2.3 [facility] Comment on above: Performed By: #### L IPA, CMP #### [facility] [address] [place] [address] Dr. Toy Macario PHOSPHORUSon 04-22-2021 Phosphate [Mass/Vol] 3.8 mg/dL Normal 2.5-4.5 [facility] Comment on above: Performed By: #### L IPA, CMP #### [facility] [address] [place] [address] Dr. Toy Macario POINT OF CARE GLUCOSEon 04-06 Glucose [Mass/Vol] 114 mg/dL Critically high 74-106 [facility] Comment on above: Performed By: #### L IPA, CMP #### [facility] [address] [place] [address] Dr. Toy Macario Glucose [Mass/Vol] 123 mg/dL Critically high 74-106 [facility] Comment on above: Performed By: #### L IPA, CMP #### [facility] [address] [place] [address] Dr. Toy Macario Glucose [Mass/Vol] 131 mg/dL Critically high 74-106 [facility] Comment on above: Performed By: #### L IPA, CMP #### [facility] [address] [place] [address] Dr. Toy Macario PROF 14(COMP METB)on 022 Albumin [Mass/Vol] 1.9 g/dL Critically low 3.5-5.0 [facility] Comment on above: Performed By: #### L IPA, CMP #### [facility] [address] [place] [address] Dr. Toy Macario Albumin/Globulin [Mass ratio] 0.5 {ratio} Normal [facility] Comment on above: Performed By: #### L IPA, CMP #### [facility] [address] [place] [address] Dr. Toy Macario ALP [Catalytic activity/Vol] 60 U/L Normal 38-126 [facility] Comment on above: Performed By: #### L IPA, CMP #### [facility] [address] [place] [address] Dr. Toy Macario ALT [Catalytic activity/Vol] 14 U/L Normal 9-52 [facility] Comment on above: Performed By: #### L IPA, CMP #### [facility] [address] [address] [address] Toy Macario Anion gap [Moles/Vol] 12.7 mmol/L Normal [facility] Comment on above: Performed By: #### L IPA, CMP #### [facility] [address] [address] [address] Toy Macario AST [Catalytic activity/Vol] 13 U/L Critically low 14-36 [facility] Comment on above: Performed By: #### L IPA, CMP #### [facility] [address] [place] [address] Dr. Toy Macario Bilirubin [Mass/Vol] 0.3 mg/dL Normal 0.2-1.3 [facility] Comment on above: Performed By: #### L IPA, CMP #### [facility] [address] [place] [address] Dr. Toy Macario Calcium [Mass/Vol] 8.6 mg/dL Normal 8.4-10.2 [facility] Comment on above: Performed By: #### L IPA, CMP #### [facility] [address] [place] [address] Dr. Toy Macario Chloride [Moles/Vol] 106 mmol/L Normal 98-107 [facility] Comment on above: Performed By: #### L IPA, CMP #### [facility] [address] [place] [address] Dr. Toy Macario CO2 [Moles/Vol] 26.9 mmol/L Normal 22.0-30.0 [facility] Comment on above: Performed By: #### L IPA, CMP #### [facility] [address] [place] [address] Dr. Toy Macario Creatinine [Mass/Vol] 0.59 mg/dL Normal 0.52-1.04 [facility] Comment on above: Performed By: #### L IPA, CMP #### [facility] [address] [place] [address] Dr. Toy Macario EGFR-AF LATVIAN >60 Normal >=60 [facility] Comment on above: Performed By: #### L IPA, CMP #### [facility] [address] [address] [address] Toy Macario EGFR-NON AF LATVIAN >60 Normal >=60 [facility] Comment on above: Performed By: #### L IPA, CMP #### [facility] [address] [address] [address] Toy Macario Globulin (S) [Mass/Vol] 4.0 g/dL Normal [facility] Comment on above: Performed By: #### L IPA, CMP #### [facility] [address] [address] [address] Toy Macario Glucose [Mass/Vol] 109 mg/dL Critically high 74-106 [facility] Comment on above: Performed By: #### L IPA, CMP #### [facility] [address] [place] [address] Dr. Toy Macario Potassium [Moles/Vol] 3.6 mmol/L Normal 3.4-5.0 [facility] Comment on above: Performed By: #### L IPA, CMP #### [facility] [address] [place] [address] Dr. Toy Macario Protein [Mass/Vol] 5.9 g/dL Critically low 6.1-8.2 [facility] Comment on above: Performed By: #### L IPA, CMP #### [facility] [address] [place] [address] Dr. Toy Macario Sodium [Moles/Vol] 142 mmol/L Normal 137-145 [facility] Comment on above: Performed By: #### L IPA, CMP #### [facility] [address] [place] [address] Dr. Toy Macario Urea nitrogen [Mass/Vol] 9.0 mg/dL Normal 7.0-17.0 [facility] Comment on above: Performed By: #### L IPA, CMP #### [facility] [address] [place] [address] Dr. Toy Macario Urea nitrogen/Creatinine [Mass ratio] 15.3 mg/mg Normal [facility] Comment on above: Performed By: #### L IPA, CMP #### [facility] [address] [place] [address] Dr. Toy Macario TRIGLYCERIDEon 04-22-2021 Triglyceride [Mass/Vol] 84 mg/dL Normal <=150 [facility] Comment on above: Performed By: #### L IPA, CMP #### [facility] [address] [place] [address] Dr. Toy Macario CBC AUTO DIFFon 04-21-2021 BASO # 0.1 103/ul Normal 0.0-0.1 [facility] Comment on above: Performed By: #### C VDTBH #### [facility] [address] [place] [address] Dr. Toy Macario Basophils/100 WBC (Bld) 0.7 % Normal 0.2-2.0 [facility] Comment on above: Performed By: #### C VDTBH #### [facility] [address] [place] [address] Dr. Toy Macario EO # 0.1 103/ul Normal 0.0-0.7 [facility] Comment on above: Performed By: #### C VDTBH #### [facility] [address] [place] [address] Dr. Toy Macario Eosinophils/100 WBC (Bld) 1.5 % Normal 0.9-7.0 [facility] Comment on above: Performed By: #### C VDTBH #### [facility] [address] [place] [address] Dr. Toy Macario Erythrocyte distribution width (RBC) [Ratio] 13.8 % Normal 11.0-15.0 [facility] Comment on above: Performed By: #### C VDTBH #### [facility] [address] [place] [address] Dr. Toy Macario Hematocrit (Bld) [Volume fraction] 26.3 % Critically low 36.0-48.0 [facility] Comment on above: Performed By: #### C VDTBH #### [facility] [address] [place] [address] Dr. Toy Macario Hemoglobin (Bld) [Mass/Vol] 8.2 g/dL Critically low 12.0-16.0 [facility] Comment on above: Performed By: #### C VDTBH #### [facility] [address] [address] [address] Toy Macario IG # 0.13 10e3/ul Critically high 0.00-0.03 [facility] Comment on above: Performed By: #### C VDTBH #### [facility] [address] [address] [address] Toy Macario IG % 1.8 % Critically high 0.0-0.5 [facility] Comment on above: Performed By: #### C VDTBH #### [facility] [address] [address] [address] Toy Macario LYMPH # 1.3 103/ul Normal 1.2-3.8 [facility] Comment on above: Performed By: #### C VDTBH #### [facility] [address] [place] [address] Dr. Toy Macario Lymphocytes/100 WBC (Bld) 18.6 % Critically low 20.5-60.0 [facility] Comment on above: Performed By: #### C VDTBH #### [facility] [address] [place] [address] Dr. Toy Macario MANUAL DIFF REQ NO Normal [facility] Comment on above: Performed By: #### C VDTBH #### [facility] [address] [address] [address] Toy Macario MCH (RBC) [Entitic mass] 27.7 pg Normal 26.7-34.0 [facility] Comment on above: Performed By: #### C VDTBH #### [facility] [address] [address] [address] Toy Macario MCHC (RBC) [Mass/Vol] 31.2 g/dL Normal 29.9-35.2 [facility] Comment on above: Performed By: #### C VDTBH #### [facility] [address] [place] [address] Dr. Toy Macario MCV (RBC) [Entitic vol] 88.9 fL Normal 81.0-99.0 [facility] Comment on above: Performed By: #### C VDTBH #### [facility] [address] [place] [address] Dr. Toy Macario MONO # 0.4 103/ul Normal 0.3-0.8 [facility] Comment on above: Performed By: #### C VDTBH #### [facility] [address] [place] [address] Dr. Toy Macario Monocytes/100 WBC (Bld) 6.0 % Normal 1.7-12.0 [facility] Comment on above: Performed By: #### C VDTBH #### [facility] [address] [place] [address] Dr. Toy Macario NEUT # 5.2 103/ul Normal 1.4-6.5 [facility] Comment on above: Performed By: #### C VDTBH #### [facility] [address] [place] [address] Dr. Toy Macario Neutrophils/100 WBC (Bld) 71.4 % Normal 43.0-75.0 [facility] Comment on above: Performed By: #### C VDTBH #### [facility] [address] [place] [address] Dr. Toy Macario Platelet mean volume (Bld) [Entitic vol] 9.9 fL Normal 9.5-13.5 [facility] Comment on above: Performed By: #### C VDTBH #### [facility] [address] [place] [address] Dr. Toy Macario PLT 245 103/ul Normal 150-450 [facility] Comment on above: Performed By: #### C VDTBH #### [facility] [address] [place] [address] Dr. Toy Macario RBC 2.96 106/ul Critically low 4.20-5.40 [facility] Comment on above: Performed By: #### C VDTBH #### [facility] [address] [place] [address] Dr. Toy Macario WBC 7.2 103/ul Normal 4.0-11.0 [facility] Comment on above: Performed By: #### C VDTBH #### [facility] [address] [place] [address] Dr. Toy Macario LIPASEon 04-21-2021 Lipase [Catalytic activity/Vol] 645.0 U/L Critically high 23.0-300.0 [facility] Comment on above: Performed By: #### O DEVENDRA #### [facility] [address] [place] [address] Dr. Toy Macario MAGNESIUMon 04-21-2021 Magnesium [Mass/Vol] 2.0 mg/dL Normal 1.6-2.3 [facility] Comment on above: Performed By: #### O DEVENDRA #### [facility] [address] [place] [address] Dr. Toy Macario PHOSPHORUSon 04-21-2021 Phosphate [Mass/Vol] 3.6 mg/dL Normal 2.5-4.5 [facility] Comment on above: Performed By: #### O DEVENDRA #### [facility] [address] [place] [address] Dr. Toy Macario POTASSIUMon 04-21-2021 Potassium [Moles/Vol] 3.5 mmol/L Normal 3.4-5.0 [facility] Comment on above: Performed By: #### K #### [facility] [address] [place] [address] Dr. Toy Macario PROF 14(COMP METB)on 022 Albumin [Mass/Vol] 1.8 g/dL Critically low 3.5-5.0 [facility] Comment on above: Performed By: #### O DEVENDRA #### [facility] [address] [place] [address] Dr. Toy Macario Albumin/Globulin [Mass ratio] 0.4 {ratio} Normal [facility] Comment on above: Performed By: #### O DEVENDRA #### [facility] [address] [place] [address] Dr. Toy Macario ALP [Catalytic activity/Vol] 65 U/L Normal 38-126 [facility] Comment on above: Performed By: #### O DEVENDRA #### [facility] [address] [address] [address] Toy Macario ALT [Catalytic activity/Vol] 13 U/L Normal 9-52 [facility] Comment on above: Performed By: #### O DEVENDRA #### [facility] [address] [address] [address] Toy Macario Anion gap [Moles/Vol] 8.2 mmol/L Normal [facility] Comment on above: Performed By: #### O DEVENDRA #### [facility] [address] [address] [address] Toy Macario AST [Catalytic activity/Vol] 14 U/L Normal 14-36 [facility] Comment on above: Performed By: #### O DEVENDRA #### [facility] [address] [place] [address] Dr. Toy Macario Bilirubin [Mass/Vol] 0.3 mg/dL Normal 0.2-1.3 [facility] Comment on above: Performed By: #### O DEVENDRA #### [facility] [address] [place] [address] Dr. Toy Macario Calcium [Mass/Vol] 8.3 mg/dL Critically low 8.4-10.2 [facility] Comment on above: Performed By: #### O DEVENDRA #### [facility] [address] [place] [address] Dr. Toy Macario Chloride [Moles/Vol] 106 mmol/L Normal 98-107 [facility] Comment on above: Performed By: #### O DEVENDRA #### [facility] [address] [place] [address] Dr. Toy Macario CO2 [Moles/Vol] 27.7 mmol/L Normal 22.0-30.0 [facility] Comment on above: Performed By: #### O DEVENDRA #### [facility] [address] [place] [address] Dr. Toy Macario Creatinine [Mass/Vol] 0.59 mg/dL Normal 0.52-1.04 [facility] Comment on above: Performed By: #### O DEVENDRA #### [facility] [address] [address] [address] Toy Macario EGFR-AF LATVIAN >60 Normal >=60 [facility] Comment on above: Performed By: #### O DEVENDRA #### [facility] [address] [address] [address] Toy Macario EGFR-NON AF LATVIAN >60 Normal >=60 [facility] Comment on above: Performed By: #### O DEVENDRA #### [facility] [address] [address] [address] Toy Macario Globulin (S) [Mass/Vol] 4.3 g/dL Normal [facility] Comment on above: Performed By: #### O DEVENDRA #### [facility] [address] [place] [address] Dr. Toy Macario Glucose [Mass/Vol] 117 mg/dL Critically high 74-106 [facility] Comment on above: Performed By: #### O DEVENDRA #### [facility] [address] [place] [address] Dr. Toy Macario Potassium [Moles/Vol] 2.9 mmol/L Critically low 3.4-5.0 [facility] Comment on above: Result Comment: Test Repeated. Criticall Value Verified Performed By: #### O DEVENDRA #### [facility] [address] [place] [address] Dr. Toy Macario Protein [Mass/Vol] 6.1 g/dL Normal 6.1-8.2 [facility] Comment on above: Performed By: #### O DEVENDRA #### [facility] [address] [place] [address] Dr. Toy Macario Sodium [Moles/Vol] 139 mmol/L Normal 137-145 [facility] Comment on above: Performed By: #### O DEVENDRA #### [facility] [address] [address] [address] Toy Macario Urea nitrogen [Mass/Vol] 7.0 mg/dL Normal 7.0-17.0 [facility] Comment on above: Performed By: #### O DEVENDRA #### [facility] [address] [place] [address] Dr. Toy Macario Urea nitrogen/Creatinine [Mass ratio] 11.9 mg/mg Normal [facility] Comment on above: Performed By: #### O DEVENDRA #### [facility] [address] [place] [address] Dr. Toy Macario TRIGLYCERIDEon 04-21-2021 Triglyceride [Mass/Vol] 182 mg/dL Critically high <=150 [facility] Comment on above: Performed By: #### L IPA, CMP #### [facility] [address] [place] [address] Dr. Toy Macario CBC AUTO DIFFon 04-20-2021 BASO # 0.0 103/ul Normal 0.0-0.1 [facility] Comment on above: Performed By: #### C BC #### [facility] [address] [place] [address] Dr. Toy Macario Basophils/100 WBC (Bld) 0.3 % Normal 0.2-2.0 [facility] Comment on above: Performed By: #### C BC #### [facility] [address] [place] [address] Dr. Toy Macario EO # 0.1 103/ul Normal 0.0-0.7 [facility] Comment on above: Performed By: #### C BC #### [facility] [address] [place] [address] Dr. Toy Macario Eosinophils/100 WBC (Bld) 1.2 % Normal 0.9-7.0 [facility] Comment on above: Performed By: #### C BC #### [facility] [address] [place] [address] Dr. Toy Macario Erythrocyte distribution width (RBC) [Ratio] 13.9 % Normal 11.0-15.0 [facility] Comment on above: Performed By: #### C BC #### [facility] [address] [place] [address] Dr. Toy Macario Hematocrit (Bld) [Volume fraction] 26.4 % Critically low 36.0-48.0 [facility] Comment on above: Performed By: #### C BC #### [facility] [address] [address] [address] Toy Macario Hemoglobin (Bld) [Mass/Vol] 8.3 g/dL Critically low 12.0-16.0 [facility] Comment on above: Performed By: #### C BC #### [facility] [address] [address] [address] Toy Macario IG # 0.03 10e3/ul Normal 0.00-0.03 [facility] Comment on above: Performed By: #### C BC #### [facility] [address] [address] [address] Toy Macario IG % 0.5 % Normal 0.0-0.5 [facility] Comment on above: Performed By: #### C BC #### [facility] [address] [address] [address] Toy Macario LYMPH # 1.1 103/ul Critically low 1.2-3.8 [facility] Comment on above: Performed By: #### C BC #### [facility] [address] [address] [address] Toy Macario Lymphocytes/100 WBC (Bld) 18.3 % Critically low 20.5-60.0 [facility] Comment on above: Performed By: #### C BC #### [facility] [address] [address] [address] Toy Macario MANUAL DIFF REQ NO Normal [facility] Comment on above: Performed By: #### C BC #### [facility] [address] [address] [address] Toy Macario MCH (RBC) [Entitic mass] 27.7 pg Normal 26.7-34.0 [facility] Comment on above: Performed By: #### C BC #### [facility] [address] [address] [address] Toy Macario MCHC (RBC) [Mass/Vol] 31.4 g/dL Normal 29.9-35.2 [facility] Comment on above: Performed By: #### C BC #### [facility] [address] [address] [address] Toy Macario MCV (RBC) [Entitic vol] 88.0 fL Normal 81.0-99.0 [facility] Comment on above: Performed By: #### C BC #### [facility] [address] [address] [address] Toy Macario MONO # 0.4 103/ul Normal 0.3-0.8 [facility] Comment on above: Performed By: #### C BC #### [facility] [address] [place] [address] Dr. Toy Macario Monocytes/100 WBC (Bld) 6.3 % Normal 1.7-12.0 [facility] Comment on above: Performed By: #### C BC #### [facility] [address] [place] [address] Dr. Toy Macario NEUT # 4.3 103/ul Normal 1.4-6.5 [facility] Comment on above: Performed By: #### C BC #### [facility] [address] [place] [address] Dr. Toy Macario Neutrophils/100 WBC (Bld) 73.4 % Normal 43.0-75.0 [facility] Comment on above: Performed By: #### C BC #### [facility] [address] [place] [address] Dr. Toy Macario Platelet mean volume (Bld) [Entitic vol] 9.3 fL Critically low 9.5-13.5 [facility] Comment on above: Performed By: #### C BC #### [facility] [address] [place] [address] Dr. Toy Macario PLT 242 103/ul Normal 150-450 [facility] Comment on above: Performed By: #### C BC #### [facility] [address] [place] [address] Dr. Toy Macario RBC 3.00 106/ul Critically low 4.20-5.40 [facility] Comment on above: Performed By: #### C BC #### [facility] [address] [place] [address] Dr. Toy Macario WBC 5.8 103/ul Normal 4.0-11.0 [facility] Comment on above: Performed By: #### C BC #### [facility] [address] [place] [address] Dr. Toy Macario LIPASEon 04-20-2021 Lipase [Catalytic activity/Vol] 519.0 U/L Critically high 23.0-300.0 [facility] Comment on above: Performed By: #### L IPA, CMP #### [facility] [address] [place] [address] Dr. Toy Macario POINT OF CARE GLUCOSEon 04-06 Glucose [Mass/Vol] 104 mg/dL Normal 74-106 [facility] Comment on above: Performed By: #### C VDTBH #### [facility] [address] [place] [address] Dr. Toy Macario Glucose [Mass/Vol] 105 mg/dL Normal 74-106 [facility] Comment on above: Performed By: #### L IPA, CMP #### [facility] [address] [place] [address] Dr. Toy Macario Glucose [Mass/Vol] 109 mg/dL Critically high 74-106 [facility] Comment on above: Performed By: #### O DEVENDRA #### [facility] [address] [place] [address] Dr. Toy Macario PROF 14(COMP METB)on 022 Albumin [Mass/Vol] 1.8 g/dL Critically low 3.5-5.0 [facility] Comment on above: Performed By: #### L IPA, CMP #### [facility] [address] [place] [address] Dr. Toy Macario Albumin/Globulin [Mass ratio] 0.4 {ratio} Normal [facility] Comment on above: Performed By: #### L IPA, CMP #### [facility] [address] [place] [address] Dr. Toy Macario ALP [Catalytic activity/Vol] 67 U/L Normal 38-126 [facility] Comment on above: Performed By: #### L IPA, CMP #### [facility] [address] [address] [address] Toy Macario ALT [Catalytic activity/Vol] 17 U/L Normal 9-52 [facility] Comment on above: Performed By: #### L IPA, CMP #### [facility] [address] [address] [address] Toy Macario Anion gap [Moles/Vol] 8.9 mmol/L Normal [facility] Comment on above: Performed By: #### L IPA, CMP #### [facility] [address] [address] [address] Toy Macario AST [Catalytic activity/Vol] 15 U/L Normal 14-36 [facility] Comment on above: Performed By: #### L IPA, CMP #### [facility] [address] [address] [address] Toy Macario Bilirubin [Mass/Vol] 0.3 mg/dL Normal 0.2-1.3 [facility] Comment on above: Performed By: #### L IPA, CMP #### [facility] [address] [address] [address] Toy Macario Calcium [Mass/Vol] 8.8 mg/dL Normal 8.4-10.2 [facility] Comment on above: Performed By: #### L IPA, CMP #### [facility] [address] [address] [address] Toy Macario Chloride [Moles/Vol] 105 mmol/L Normal 98-107 [facility] Comment on above: Performed By: #### L IPA, CMP #### [facility] [address] [address] [address] Toy Macario CO2 [Moles/Vol] 27.3 mmol/L Normal 22.0-30.0 [facility] Comment on above: Performed By: #### L IPA, CMP #### [facility] [address] [address] [address] Toy Macario Creatinine [Mass/Vol] 0.56 mg/dL Normal 0.52-1.04 [facility] Comment on above: Performed By: #### L IPA, CMP #### [facility] [address] [address] [address] Toy Macario EGFR-AF LATVIAN >60 Normal >=60 [facility] Comment on above: Performed By: #### L IPA, CMP #### [facility] [address] [address] [address] Toy Macario EGFR-NON AF LATVIAN >60 Normal >=60 [facility] Comment on above: Performed By: #### L IPA, CMP #### [facility] [address] [address] [address] Toy Macario Globulin (S) [Mass/Vol] 4.5 g/dL Normal [facility] Comment on above: Performed By: #### L IPA, CMP #### [facility] [address] [address] [address] Toy Macario Glucose [Mass/Vol] 103 mg/dL Normal 74-106 [facility] Comment on above: Performed By: #### L IPA, CMP #### [facility] [address] [address] [address] Toy Macario Potassium [Moles/Vol] 3.2 mmol/L Critically low 3.4-5.0 [facility] Comment on above: Performed By: #### L IPA, CMP #### [facility] [address] [address] [address] Toy Macario Protein [Mass/Vol] 6.3 g/dL Normal 6.1-8.2 [facility] Comment on above: Performed By: #### L IPA, CMP #### [facility] [address] [address] [address] Toy Macario Sodium [Moles/Vol] 138 mmol/L Normal 137-145 [facility] Comment on above: Performed By: #### L IPA, CMP #### [facility] [address] [address] [address] Toy Macario Urea nitrogen [Mass/Vol] 7.0 mg/dL Normal 7.0-17.0 [facility] Comment on above: Performed By: #### L IPA, CMP #### [facility] [address] [place] [address] Dr. Toy Macario Urea nitrogen/Creatinine [Mass ratio] 12.5 mg/mg Normal [facility] Comment on above: Performed By: #### L IPA, CMP #### [facility] [address] [place] [address] Dr. Toy Macario CBC AUTO DIFFon 04-19-2021 BASO # 0.0 103/ul Normal 0.0-0.1 [facility] Comment on above: Performed By: #### C MP, LIPA #### [facility] [address] [place] [address] Dr. Toy Macario Basophils/100 WBC (Bld) 0.8 % Normal 0.2-2.0 [facility] Comment on above: Performed By: #### C MP, LIPA #### [facility] [address] [place] [address] Dr. Toy Macario EO # 0.1 103/ul Normal 0.0-0.7 [facility] Comment on above: Performed By: #### C MP, LIPA #### [facility] [address] [place] [address] Dr. Toy Macario Eosinophils/100 WBC (Bld) 1.9 % Normal 0.9-7.0 [facility] Comment on above: Performed By: #### C MP, LIPA #### [facility] [address] [place] [address] Dr. Toy Macario Erythrocyte distribution width (RBC) [Ratio] 14.0 % Normal 11.0-15.0 [facility] Comment on above: Performed By: #### C MP, LIPA #### [facility] [address] [place] [address] Dr. Toy Macario Hematocrit (Bld) [Volume fraction] 27.6 % Critically low 36.0-48.0 [facility] Comment on above: Performed By: #### C MP, LIPA #### [facility] [address] [place] [address] Dr. Toy Macario Hemoglobin (Bld) [Mass/Vol] 8.5 g/dL Critically low 12.0-16.0 [facility] Comment on above: Performed By: #### C MP, LIPA #### [facility] [address] [place] [address] Dr. Toy Macario IG # 0.03 10e3/ul Normal 0.00-0.03 [facility] Comment on above: Performed By: #### C MP, LIPA #### [facility] [address] [place] [address] Dr. Toy Macario IG % 0.6 % Critically high 0.0-0.5 [facility] Comment on above: Performed By: #### C MP, LIPA #### [facility] [address] [place] [address] Dr. Tyo Macario LYMPH # 1.0 103/ul Critically low 1.2-3.8 [facility] Comment on above: Performed By: #### C MP, LIPA #### [facility] [address] [place] [address] Dr. Toy Macario Lymphocytes/100 WBC (Bld) 17.9 % Critically low 20.5-60.0 [facility] Comment on above: Performed By: #### C MP, LIPA #### [facility] [address] [place] [address] Dr. Toy Macario MANUAL DIFF REQ NO Normal [facility] Comment on above: Performed By: #### C MP, LIPA #### [facility] [address] [place] [address] Dr. Toy Macario MCH (RBC) [Entitic mass] 27.4 pg Normal 26.7-34.0 [facility] Comment on above: Performed By: #### C MP, LIPA #### [facility] [address] [place] [address] Dr. Toy Macario MCHC (RBC) [Mass/Vol] 30.8 g/dL Normal 29.9-35.2 [facility] Comment on above: Performed By: #### C MP, LIPA #### [facility] [address] [place] [address] Dr. Toy Macario MCV (RBC) [Entitic vol] 89.0 fL Normal 81.0-99.0 [facility] Comment on above: Performed By: #### C MP, LIPA #### [facility] [address] [place] [address] Dr. Toy Macario MONO # 0.4 103/ul Normal 0.3-0.8 [facility] Comment on above: Performed By: #### C MP, LIPA #### [facility] [address] [place] [address] Dr. Toy Macario Monocytes/100 WBC (Bld) 7.7 % Normal 1.7-12.0 [facility] Comment on above: Performed By: #### C MP, LIPA #### [facility] [address] [place] [address] Dr. Toy Macario NEUT # 3.8 103/ul Normal 1.4-6.5 [facility] Comment on above: Performed By: #### C MP, LIPA #### [facility] [address] [place] [address] Dr. Toy Macario Neutrophils/100 WBC (Bld) 71.1 % Normal 43.0-75.0 [facility] Comment on above: Performed By: #### C MP, LIPA #### [facility] [address] [place] [address] Dr. Toy Macario Platelet mean volume (Bld) [Entitic vol] 9.4 fL Critically low 9.5-13.5 [facility] Comment on above: Performed By: #### C MP, LIPA #### [facility] [address] [place] [address] Dr. Toy Macario PLT 259 103/ul Normal 150-450 [facility] Comment on above: Performed By: #### C MP, LIPA #### [facility] [address] [place] [address] Dr. Toy Macario RBC 3.10 106/ul Critically low 4.20-5.40 [facility] Comment on above: Performed By: #### C MP, LIPA #### [facility] [address] [place] [address] Dr. Toy Macario WBC 5.3 103/ul Normal 4.0-11.0 [facility] Comment on above: Performed By: #### C MP, LIPA #### [facility] [address] [place] [address] Dr. Toy Macario LIPASEon 04-19-2021 Lipase [Catalytic activity/Vol] 447.0 U/L Critically high 23.0-300.0 [facility] Comment on above: Performed By: #### C MP, LIPA #### [facility] [address] [place] [address] Dr. Toy Macario POINT OF CARE GLUCOSEon 04-06 Glucose [Mass/Vol] 107 mg/dL Critically high 74-106 [facility] Comment on above: Performed By: #### L IPA, CMP #### [facility] [address] [place] [address] Dr. Toy Macario PROF 14(COMP METB)on 022 Albumin [Mass/Vol] 1.8 g/dL Critically low 3.5-5.0 [facility] Comment on above: Performed By: #### C MP, LIPA #### [facility] [address] [place] [address] Dr. Toy Macario Albumin/Globulin [Mass ratio] 0.4 {ratio} Normal [facility] Comment on above: Performed By: #### C MP, LIPA #### [facility] [address] [place] [address] Dr. Toy Macario ALP [Catalytic activity/Vol] 81 U/L Normal 38-126 [facility] Comment on above: Performed By: #### C MP, LIPA #### [facility] [address] [place] [address] Dr. Toy Macario ALT [Catalytic activity/Vol] 27 U/L Normal 9-52 [facility] Comment on above: Performed By: #### C MP, LIPA #### [facility] [address] [place] [address] Dr. Toy Macario Anion gap [Moles/Vol] 9.3 mmol/L Normal [facility] Comment on above: Performed By: #### C MP, LIPA #### [facility] [address] [address] [address] Toy Macario AST [Catalytic activity/Vol] 21 U/L Normal 14-36 [facility] Comment on above: Performed By: #### C MP, LIPA #### [facility] [address] [address] [address] Toy Macario Bilirubin [Mass/Vol] 0.3 mg/dL Normal 0.2-1.3 [facility] Comment on above: Performed By: #### C MP, LIPA #### [facility] [address] [address] [address] Toy Macario Calcium [Mass/Vol] 9.0 mg/dL Normal 8.4-10.2 [facility] Comment on above: Performed By: #### C MP, LIPA #### [facility] [address] [address] [address] Toy Macario Chloride [Moles/Vol] 105 mmol/L Normal 98-107 [facility] Comment on above: Performed By: #### C MP, LIPA #### [facility] [address] [address] [address] Toy Macario CO2 [Moles/Vol] 27.9 mmol/L Normal 22.0-30.0 [facility] Comment on above: Performed By: #### C MP, LIPA #### [facility] [address] [address] [address] Toy Macario Creatinine [Mass/Vol] 0.61 mg/dL Normal 0.52-1.04 [facility] Comment on above: Performed By: #### C MP, LIPA #### [facility] [address] [address] [address] Toy Macario EGFR-AF LATVIAN >60 Normal >=60 [facility] Comment on above: Performed By: #### C MP, LIPA #### [facility] [address] [address] [address] Toy Macario EGFR-NON AF LATVIAN >60 Normal >=60 [facility] Comment on above: Performed By: #### C MP, LIPA #### [facility] [address] [address] [address] Toy Macario Globulin (S) [Mass/Vol] 4.8 g/dL Normal [facility] Comment on above: Performed By: #### C MP, LIPA #### [facility] [address] [address] [address] Toy Macario Glucose [Mass/Vol] 107 mg/dL Critically high 74-106 [facility] Comment on above: Performed By: #### C MP, LIPA #### [facility] [address] [place] [address] Dr. Toy Macario Potassium [Moles/Vol] 3.2 mmol/L Critically low 3.4-5.0 [facility] Comment on above: Performed By: #### C MP, LIPA #### [facility] [address] [place] [address] Dr. Toy Macario Protein [Mass/Vol] 6.6 g/dL Normal 6.1-8.2 [facility] Comment on above: Performed By: #### C MP, LIPA #### [facility] [address] [place] [address] Dr. Toy Macario Sodium [Moles/Vol] 139 mmol/L Normal 137-145 [facility] Comment on above: Performed By: #### C MP, LIPA #### [facility] [address] [place] [address] Dr. Toy Macario Urea nitrogen [Mass/Vol] 6.0 mg/dL Critically low 7.0-17.0 [facility] Comment on above: Performed By: #### C MP, LIPA #### [facility] [address] [place] [address] Dr. Toy Macario Urea nitrogen/Creatinine [Mass ratio] 9.8 mg/mg Normal [facility] Comment on above: Performed By: #### C MP, LIPA #### [facility] [address] [place] [address] Dr. Toy Macario CBC AUTO DIFFon 04-18-2021 BASO # 0.0 103/ul Normal 0.0-0.1 [facility] Comment on above: Performed By: #### L IPA, CMP #### [facility] [address] [place] [address] Dr. Toy Macario Basophils/100 WBC (Bld) 0.6 % Normal 0.2-2.0 [facility] Comment on above: Performed By: #### L IPA, CMP #### [facility] [address] [place] [address] Dr. Toy Macario EO # 0.1 103/ul Normal 0.0-0.7 [facility] Comment on above: Performed By: #### L IPA, CMP #### [facility] [address] [place] [address] Dr. Toy Macario Eosinophils/100 WBC (Bld) 1.8 % Normal 0.9-7.0 [facility] Comment on above: Performed By: #### L IPA, CMP #### [facility] [address] [place] [address] Dr. Toy Macario Erythrocyte distribution width (RBC) [Ratio] 14.0 % Normal 11.0-15.0 [facility] Comment on above: Performed By: #### L IPA, CMP #### [facility] [address] [place] [address] Dr. Toy Macario Hematocrit (Bld) [Volume fraction] 27.9 % Critically low 36.0-48.0 [facility] Comment on above: Performed By: #### L IPA, CMP #### [facility] [address] [place] [address] Dr. Toy Macario Hemoglobin (Bld) [Mass/Vol] 8.5 g/dL Critically low 12.0-16.0 [facility] Comment on above: Performed By: #### L IPA, CMP #### [facility] [address] [place] [address] Dr. Toy Macario IG # 0.03 10e3/ul Normal 0.00-0.03 [facility] Comment on above: Performed By: #### L IPA, CMP #### [facility] [address] [address] [address] Toy Macario IG % 0.4 % Normal 0.0-0.5 [facility] Comment on above: Performed By: #### L IPA, CMP #### [facility] [address] [address] [address] Toy Macario LYMPH # 1.0 103/ul Critically low 1.2-3.8 [facility] Comment on above: Performed By: #### L IPA, CMP #### [facility] [address] [address] [address] Toy Macario Lymphocytes/100 WBC (Bld) 14.3 % Critically low 20.5-60.0 [facility] Comment on above: Performed By: #### L IPA, CMP #### [facility] [address] [place] [address] Dr. Toy Macario MANUAL DIFF REQ NO Normal [facility] Comment on above: Performed By: #### L IPA, CMP #### [facility] [address] [place] [address] Dr. Toy Macario MCH (RBC) [Entitic mass] 27.5 pg Normal 26.7-34.0 [facility] Comment on above: Performed By: #### L IPA, CMP #### [facility] [address] [address] [address] Toy Macario MCHC (RBC) [Mass/Vol] 30.5 g/dL Normal 29.9-35.2 [facility] Comment on above: Performed By: #### L IPA, CMP #### [facility] [address] [place] [address] Dr. Toy Macario MCV (RBC) [Entitic vol] 90.3 fL Normal 81.0-99.0 [facility] Comment on above: Performed By: #### L IPA, CMP #### [facility] [address] [place] [address] Dr. Toy Macario MONO # 0.5 103/ul Normal 0.3-0.8 [facility] Comment on above: Performed By: #### L IPA, CMP #### [facility] [address] [place] [address] Dr. Toy Macario Monocytes/100 WBC (Bld) 6.8 % Normal 1.7-12.0 [facility] Comment on above: Performed By: #### L IPA, CMP #### [facility] [address] [place] [address] Dr. Toy Macario NEUT # 5.4 103/ul Normal 1.4-6.5 [facility] Comment on above: Performed By: #### L IPA, CMP #### [facility] [address] [place] [address] Dr. Toy Macario Neutrophils/100 WBC (Bld) 76.1 % Critically high 43.0-75.0 [facility] Comment on above: Performed By: #### L IPA, CMP #### [facility] [address] [place] [address] Dr. Toy Macario Platelet mean volume (Bld) [Entitic vol] 9.6 fL Normal 9.5-13.5 [facility] Comment on above: Performed By: #### L IPA, CMP #### [facility] [address] [place] [address] Dr. Toy Macario PLT 253 103/ul Normal 150-450 [facility] Comment on above: Performed By: #### L IPA, CMP #### [facility] [address] [place] [address] Dr. Toy Macario RBC 3.09 106/ul Critically low 4.20-5.40 [facility] Comment on above: Performed By: #### L IPA, CMP #### [facility] [address] [place] [address] Dr. Toy Macario WBC 7.1 103/ul Normal 4.0-11.0 [facility] Comment on above: Performed By: #### L IPA, CMP #### [facility] [address] [place] [address] ABD/PELV W CONon [...] by: URIEL GUILLEN Date: 2021-04-18 12:55 Normal [facility] LIPASEon 04-18-2021 Lipase [Catalytic activity/Vol] 330.0 U/L Critically high 23.0-300.0 [facility] Comment on above: Performed By: #### C MP, LIPA #### [facility] [address] [place] [address] Dr. Toy Macario OCC BLD IMMUNOASSAYon 2021 OCCULT BLOOD Negative Normal NEGATIVE [facility] Comment on above: Performed By: #### O DEVENDRA #### [facility] [address] [place] [address] Dr. Toy Macario POINT OF CARE GLUCOSEon 04-06 Glucose [Mass/Vol] 110 mg/dL Critically high 74-106 [facility] Comment on above: Performed By: #### C BC #### [facility] [address] [place] [address] Dr. Toy Macario Glucose [Mass/Vol] 103 mg/dL Normal 74-106 [facility] Comment on above: Performed By: #### C MP, LIPA #### [facility] [address] [place] [address] Dr. Toy Macario Glucose [Mass/Vol] 112 mg/dL Critically high 74-106 [facility] Comment on above: Performed By: #### L IPA, CMP #### [facility] [address] [place] [address] Dr. Toy Macario PROF 14(COMP METB)on 022 Albumin [Mass/Vol] 1.7 g/dL Critically low 3.5-5.0 [facility] Comment on above: Performed By: #### C MP, LIPA #### [facility] [address] [place] [address] Dr. Toy Macario Albumin/Globulin [Mass ratio] 0.4 {ratio} Normal [facility] Comment on above: Performed By: #### C MP, LIPA #### [facility] [address] [place] [address] Dr. Toy Macario ALP [Catalytic activity/Vol] 65 U/L Normal 38-126 [facility] Comment on above: Performed By: #### C MP, LIPA #### [facility] [address] [address] [address] Toy Macario ALT [Catalytic activity/Vol] 15 U/L Normal 9-52 [facility] Comment on above: Performed By: #### C MP, LIPA #### [facility] [address] [address] [address] Toy Macario Anion gap [Moles/Vol] 11.4 mmol/L Normal [facility] Comment on above: Performed By: #### C MP, LIPA #### [facility] [address] [place] [address] Dr. Toy Macario AST [Catalytic activity/Vol] 11 U/L Critically low 14-36 [facility] Comment on above: Performed By: #### C MP, LIPA #### [facility] [address] [place] [address] Dr. Toy Macario Bilirubin [Mass/Vol] 0.3 mg/dL Normal 0.2-1.3 [facility] Comment on above: Performed By: #### C MP, LIPA #### [facility] [address] [place] [address] Dr. Toy Macario Calcium [Mass/Vol] 8.7 mg/dL Normal 8.4-10.2 [facility] Comment on above: Performed By: #### C MP, LIPA #### [facility] [address] [place] [address] Dr. Toy Macario Chloride [Moles/Vol] 106 mmol/L Normal 98-107 [facility] Comment on above: Performed By: #### C MP, LIPA #### [facility] [address] [place] [address] Dr. Toy Macario CO2 [Moles/Vol] 27.1 mmol/L Normal 22.0-30.0 [facility] Comment on above: Performed By: #### C MP, LIPA #### [facility] [address] [place] [address] Dr. Toy Macario Creatinine [Mass/Vol] 0.60 mg/dL Normal 0.52-1.04 [facility] Comment on above: Performed By: #### C MP, LIPA #### [facility] [address] [address] [address] Toy Macario EGFR-AF LATVIAN >60 Normal >=60 [facility] Comment on above: Performed By: #### C MP, LIPA #### [facility] [address] [address] [address] Toy Macario EGFR-NON AF LATVIAN >60 Normal >=60 [facility] Comment on above: Performed By: #### C MP, LIPA #### [facility] [address] [address] [address] Toy Macario Globulin (S) [Mass/Vol] 4.6 g/dL Normal [facility] Comment on above: Performed By: #### C MP, LIPA #### [facility] [address] [address] [address] Toy Macario Glucose [Mass/Vol] 110 mg/dL Critically high 74-106 [facility] Comment on above: Performed By: #### C MP, LIPA #### [facility] [address] [address] [address] Toy Macario Potassium [Moles/Vol] 3.5 mmol/L Normal 3.4-5.0 [facility] Comment on above: Performed By: #### C MP, LIPA #### [facility] [address] [address] [address] Toy Macario Protein [Mass/Vol] 6.3 g/dL Normal 6.1-8.2 [facility] Comment on above: Performed By: #### C MP, LIPA #### [facility] [address] [address] [address] Toy Macario Sodium [Moles/Vol] 141 mmol/L Normal 137-145 [facility] Comment on above: Performed By: #### C MP, LIPA #### [facility] [address] [address] [address] Toy Macario Urea nitrogen [Mass/Vol] 10.0 mg/dL Normal 7.0-17.0 [facility] Comment on above: Performed By: #### C MP, LIPA #### [facility] [address] [place] [address] Dr. Toy Macario Urea nitrogen/Creatinine [Mass ratio] 16.7 mg/mg Normal [facility] Comment on above: Performed By: #### C MP, LIPA #### [facility] [address] [place] [address] Dr. Toy Macario CBC AUTO DIFFon 04-17-2021 BASO # 0.1 103/ul Normal 0.0-0.1 [facility] Comment on above: Performed By: #### C MP, LIPA #### [facility] [address] [place] [address] Dr. Toy Macario Basophils/100 WBC (Bld) 0.6 % Normal 0.2-2.0 [facility] Comment on above: Performed By: #### C MP, LIPA #### [facility] [address] [place] [address] Dr. Toy Macario EO # 0.1 103/ul Normal 0.0-0.7 [facility] Comment on above: Performed By: #### C MP, LIPA #### [facility] [address] [place] [address] Dr. Toy Macario Eosinophils/100 WBC (Bld) 1.6 % Normal 0.9-7.0 [facility] Comment on above: Performed By: #### C MP, LIPA #### [facility] [address] [place] [address] Dr. Toy Macario Erythrocyte distribution width (RBC) [Ratio] 14.4 % Normal 11.0-15.0 [facility] Comment on above: Performed By: #### C MP, LIPA #### [facility] [address] [place] [address] Dr. Toy Macario Hematocrit (Bld) [Volume fraction] 28.5 % Critically low 36.0-48.0 [facility] Comment on above: Performed By: #### C MP, LIPA #### [facility] [address] [place] [address] Dr. Toy Macario Hemoglobin (Bld) [Mass/Vol] 8.7 g/dL Critically low 12.0-16.0 [facility] Comment on above: Performed By: #### C MP, LIPA #### [facility] [address] [address] [address] Toy Macario IG # 0.06 10e3/ul Critically high 0.00-0.03 [facility] Comment on above: Performed By: #### C MP, LIPA #### [facility] [address] [address] [address] Toy Macario IG % 0.7 % Critically high 0.0-0.5 [facility] Comment on above: Performed By: #### C MP, LIPA #### [facility] [address] [place] [address] Dr. Toy Macario LYMPH # 1.1 103/ul Critically low 1.2-3.8 [facility] Comment on above: Performed By: #### C MP, LIPA #### [facility] [address] [place] [address] Dr. Toy Macario Lymphocytes/100 WBC (Bld) 12.2 % Critically low 20.5-60.0 [facility] Comment on above: Performed By: #### C MP, LIPA #### [facility] [address] [place] [address] Dr. Toy Macario MANUAL DIFF REQ NO Normal [facility] Comment on above: Performed By: #### C MP, LIPA #### [facility] [address] [address] [address] Toy Macario MCH (RBC) [Entitic mass] 27.6 pg Normal 26.7-34.0 [facility] Comment on above: Performed By: #### C MP, LIPA #### [facility] [address] [place] [address] Dr. Toy Macario MCHC (RBC) [Mass/Vol] 30.5 g/dL Normal 29.9-35.2 [facility] Comment on above: Performed By: #### C MP, LIPA #### [facility] [address] [place] [address] Dr. Toy Macario MCV (RBC) [Entitic vol] 90.5 fL Normal 81.0-99.0 [facility] Comment on above: Performed By: #### C MP, LIPA #### [facility] [address] [place] [address] Dr. Toy Macario MONO # 0.6 103/ul Normal 0.3-0.8 [facility] Comment on above: Performed By: #### C MP, LIPA #### [facility] [address] [place] [address] Dr. Toy Macario Monocytes/100 WBC (Bld) 7.2 % Normal 1.7-12.0 [facility] Comment on above: Performed By: #### C MP, LIPA #### [facility] [address] [place] [address] Dr. Toy Macario NEUT # 6.7 103/ul Critically high 1.4-6.5 [facility] Comment on above: Performed By: #### C MP, LIPA #### [facility] [address] [place] [address] Dr. Toy Macario Neutrophils/100 WBC (Bld) 77.7 % Critically high 43.0-75.0 [facility] Comment on above: Performed By: #### C MP, LIPA #### [facility] [address] [place] [address] Dr. Toy Macario Platelet mean volume (Bld) [Entitic vol] 9.4 fL Critically low 9.5-13.5 [facility] Comment on above: Performed By: #### C MP, LIPA #### [facility] [address] [place] [address] Dr. Toy Macario PLT 272 103/ul Normal 150-450 [facility] Comment on above: Performed By: #### C MP, LIPA #### [facility] [address] [place] [address] Dr. Toy Macario RBC 3.15 106/ul Critically low 4.20-5.40 [facility] Comment on above: Performed By: #### C LESLIE, LIPA #### [facility] [address] [place] [address] Dr. Toy Macario WBC 8.6 103/ul Normal 4.0-11.0 [facility] Comment on above: Performed By: #### C LESLIE, LIPA #### [facility] [address] [place] [address] Dr. Toy Macario CULTURE URINEon 04-17-2021 CULTURE [...] F Trimethoprim/Sulfameth oxazole >=320 R F Normal [facility] Comment on above: Performed By: #### C VDTBH #### [facility] [address] [place] [address] Dr. Toy Macario LIPASEon 04-17-2021 Lipase [Catalytic activity/Vol] 374.0 U/L Critically high 23.0-300.0 [facility] Comment on above: Performed By: #### L STEPHON CMP #### [facility] [address] [place] [address] Dr. Toy Macario POINT OF CARE GLUCOSEon 04-06 Glucose [Mass/Vol] 108 mg/dL Critically high 74-106 [facility] Comment on above: Performed By: #### L STEPHON CMP #### [facility] [address] [place] [address] Dr. Toy Macario Glucose [Mass/Vol] 105 mg/dL Normal 74-106 [facility] Comment on above: Performed By: #### C LESLIE LIPA #### [facility] [address] [address] [address] Toy Macario Glucose [Mass/Vol] 99 mg/dL Normal 74-106 [facility] Comment on above: Performed By: #### C BC #### [facility] [address] [place] [address] Dr. Toy Macario Glucose [Mass/Vol] 96 mg/dL Normal 74-106 [facility] Comment on above: Performed By: #### L IPA, CMP #### [facility] [address] [place] [address] Dr. Toy Macario PROF 14(COMP METB)on 022 Albumin [Mass/Vol] 1.9 g/dL Critically low 3.5-5.0 [facility] Comment on above: Performed By: #### L IPA, CMP #### [facility] [address] [place] [address] Dr. Toy Macario Albumin/Globulin [Mass ratio] 0.4 {ratio} Normal [facility] Comment on above: Performed By: #### L IPA, CMP #### [facility] [address] [place] [address] Dr. Toy Macario ALP [Catalytic activity/Vol] 68 U/L Normal 38-126 [facility] Comment on above: Performed By: #### L IPA, CMP #### [facility] [address] [place] [address] Dr. Toy Macario ALT [Catalytic activity/Vol] 21 U/L Normal 9-52 [facility] Comment on above: Performed By: #### L IPA, CMP #### [facility] [address] [place] [address] Dr. Toy Macario Anion gap [Moles/Vol] 14.2 mmol/L Normal [facility] Comment on above: Performed By: #### L IPA, CMP #### [facility] [address] [place] [address] Dr. Toy Macario AST [Catalytic activity/Vol] 13 U/L Critically low 14-36 [facility] Comment on above: Performed By: #### L IPA, CMP #### [facility] [address] [place] [address] Dr. Toy Macario Bilirubin [Mass/Vol] 0.5 mg/dL Normal 0.2-1.3 [facility] Comment on above: Performed By: #### L IPA, CMP #### [facility] [address] [place] [address] Dr. Toy Macario Calcium [Mass/Vol] 8.6 mg/dL Normal 8.4-10.2 [facility] Comment on above: Performed By: #### L IPA, CMP #### [facility] [address] [place] [address] Dr. Toy Macario Chloride [Moles/Vol] 106 mmol/L Normal 98-107 [facility] Comment on above: Performed By: #### L IPA, CMP #### [facility] [address] [place] [address] Dr. Toy Macario CO2 [Moles/Vol] 26.3 mmol/L Normal 22.0-30.0 [facility] Comment on above: Performed By: #### L IPA, CMP #### [facility] [address] [place] [address] Dr. Toy Macario Creatinine [Mass/Vol] 0.78 mg/dL Normal 0.52-1.04 [facility] Comment on above: Performed By: #### L IPA, CMP #### [facility] [address] [place] [address] Dr. Toy Macario EGFR-AF LATVIAN >60 Normal >=60 [facility] Comment on above: Performed By: #### L IPA, CMP #### [facility] [address] [place] [address] Dr. Toy Macario EGFR-NON AF LATVIAN >60 Normal >=60 [facility] Comment on above: Performed By: #### L IPA, CMP #### [facility] [address] [place] [address] Dr. Toy Macario Globulin (S) [Mass/Vol] 4.5 g/dL Normal [facility] Comment on above: Performed By: #### L IPA, CMP #### [facility] [address] [place] [address] Dr. Toy Macario Glucose [Mass/Vol] 89 mg/dL Normal 74-106 [facility] Comment on above: Performed By: #### L IPA, CMP #### [facility] [address] [place] [address] Dr. Toy Macario Potassium [Moles/Vol] 3.4 mmol/L Normal 3.4-5.0 [facility] Comment on above: Performed By: #### L IPA, CMP #### [facility] [address] [place] [address] Dr. Toy Macario Protein [Mass/Vol] 6.4 g/dL Normal 6.1-8.2 [facility] Comment on above: Performed By: #### L IPA, CMP #### [facility] [address] [place] [address] Dr. Toy Macario Sodium [Moles/Vol] 143 mmol/L Normal 137-145 [facility] Comment on above: Performed By: #### L IPA, CMP #### [facility] [address] [place] [address] Dr. Toy Macario Urea nitrogen [Mass/Vol] 9.0 mg/dL Normal 7.0-17.0 [facility] Comment on above: Performed By: #### L IPA, CMP #### [facility] [address] [place] [address] Dr. Toy Macario Urea nitrogen/Creatinine [Mass ratio] 11.5 mg/mg Normal [facility] Comment on above: Performed By: #### L IPA, CMP #### [facility] [address] [place] [address] Dr. Toy Macario CBC AUTO DIFFon 04-16-2021 BASO # 0.1 103/ul Normal 0.0-0.1 [facility] Comment on above: Performed By: #### C MP, LIPA #### [facility] [address] [place] [address] Dr. Toy Macario Basophils/100 WBC (Bld) 0.4 % Normal 0.2-2.0 [facility] Comment on above: Performed By: #### C MP, LIPA #### [facility] [address] [address] [address] Toy Macario EO # 0.0 103/ul Normal 0.0-0.7 [facility] Comment on above: Performed By: #### C MP, LIPA #### [facility] [address] [address] [address] Toy Macario Eosinophils/100 WBC (Bld) 0.3 % Critically low 0.9-7.0 [facility] Comment on above: Performed By: #### C MP, LIPA #### [facility] [address] [place] [address] Dr. Toy Macario Erythrocyte distribution width (RBC) [Ratio] 14.1 % Normal 11.0-15.0 [facility] Comment on above: Performed By: #### C MP, LIPA #### [facility] [address] [place] [address] Dr. Toy Macario Hematocrit (Bld) [Volume fraction] 31.9 % Critically low 36.0-48.0 [facility] Comment on above: Performed By: #### C MP, LIPA #### [facility] [address] [place] [address] Dr. Toy Macario Hemoglobin (Bld) [Mass/Vol] 9.9 g/dL Critically low 12.0-16.0 [facility] Comment on above: Performed By: #### C MP, LIPA #### [facility] [address] [place] [address] Dr. Toy Macario IG # 0.08 10e3/ul Critically high 0.00-0.03 [facility] Comment on above: Performed By: #### C MP, LIPA #### [facility] [address] [place] [address] Dr. Toy Macario IG % 0.7 % Critically high 0.0-0.5 [facility] Comment on above: Performed By: #### C MP, LIPA #### [facility] [address] [place] [address] Dr. Toy Macario LYMPH # 0.9 103/ul Critically low 1.2-3.8 [facility] Comment on above: Performed By: #### C MP, LIPA #### [facility] [address] [place] [address] Dr. Toy Macario Lymphocytes/100 WBC (Bld) 7.8 % Critically low 20.5-60.0 [facility] Comment on above: Performed By: #### C MP, LIPA #### [facility] [address] [place] [address] Dr. Toy Macario MANUAL DIFF REQ NO Normal [facility] Comment on above: Performed By: #### C MP, LIPA #### [facility] [address] [place] [address] Dr. Toy Macario MCH (RBC) [Entitic mass] 27.5 pg Normal 26.7-34.0 [facility] Comment on above: Performed By: #### C MP, LIPA #### [facility] [address] [place] [address] Dr. Toy Macario MCHC (RBC) [Mass/Vol] 31.0 g/dL Normal 29.9-35.2 [facility] Comment on above: Performed By: #### C MP, LIPA #### [facility] [address] [place] [address] Dr. Toy Macario MCV (RBC) [Entitic vol] 88.6 fL Normal 81.0-99.0 [facility] Comment on above: Performed By: #### C MP, LIPA #### [facility] [address] [place] [address] Dr. Toy Macario MONO # 0.6 103/ul Normal 0.3-0.8 [facility] Comment on above: Performed By: #### C MP, LIPA #### [facility] [address] [place] [address] Dr. Toy Macario Monocytes/100 WBC (Bld) 5.3 % Normal 1.7-12.0 [facility] Comment on above: Performed By: #### C MP, LIPA #### [facility] [address] [place] [address] Dr. Toy Macario NEUT # 10.0 103/ul Critically high 1.4-6.5 [facility] Comment on above: Performed By: #### C MP, LIPA #### [facility] [address] [place] [address] Dr. Toy Macario Neutrophils/100 WBC (Bld) 85.5 % Critically high 43.0-75.0 [facility] Comment on above: Performed By: #### C MP, LIPA #### [facility] [address] [place] [address] Dr. Toy Macario Platelet mean volume (Bld) [Entitic vol] 9.3 fL Critically low 9.5-13.5 [facility] Comment on above: Performed By: #### C LELSIE, LIPA #### [facility] [address] [place] [address] Dr. Toy Macario PLT 321 103/ul Normal 150-450 [facility] Comment on above: Performed By: #### C MP, LIPA #### [facility] [address] [place] [address] Dr. Toy Macario RBC 3.60 106/ul Critically low 4.20-5.40 [facility] Comment on above: Performed By: #### C MP, LIPA #### [facility] [address] [place] [address] Dr. Toy Macario WBC 11.7 103/ul Critically high 4.0-11.0 [facility] Comment on above: Performed By: #### C MP, LIPA #### [facility] [address] [place] [address] Dr. Toy Macario LIPASEon 04-16-2021 Lipase [Catalytic activity/Vol] 667.0 U/L Critically high 23.0-300.0 [facility] Comment on above: Performed By: #### O DEVENDRA #### [facility] [address] [place] [address] Dr. Toy Macario POINT OF CARE GLUCOSEon 04-06 Glucose [Mass/Vol] 89 mg/dL Normal 74-106 [facility] Comment on above: Performed By: #### O DEVENDRA #### [facility] [address] [place] [address] Dr. Toy Macario Glucose [Mass/Vol] 92 mg/dL Normal 74-106 [facility] Comment on above: Performed By: #### L IPA, CMP #### [facility] [address] [place] [address] Dr. Toy Macario Glucose [Mass/Vol] 100 mg/dL Normal 74-106 [facility] Comment on above: Performed By: #### C VDTBH #### [facility] [address] [place] [address] Dr. Toy Macario PROF 14(COMP METB)on 022 Albumin [Mass/Vol] 1.9 g/dL Critically low 3.5-5.0 [facility] [facility] Comment on above: Performed By: #### O DEVENDRA #### [facility] [address] [place] [address] Dr. Toy Macario Albumin/Globulin [Mass ratio] 0.4 {ratio} Normal [facility] Comment on above: Performed By: #### O DEVENDRA #### [facility] [address] [place] [address] Dr. Toy Macario ALP [Catalytic activity/Vol] 69 U/L Normal 38-126 [facility] Comment on above: Performed By: #### O DEVENDRA #### [facility] [address] [place] [address] Dr. Toy Macario ALT [Catalytic activity/Vol] 27 U/L Normal 9-52 [facility] Comment on above: Performed By: #### O DEVENDRA #### [facility] [address] [place] [address] Dr. Toy Macario Anion gap [Moles/Vol] 13.5 mmol/L Normal [facility] Comment on above: Performed By: #### O DEVENDRA #### [facility] [address] [place] [address] Dr. Toy Macario AST [Catalytic activity/Vol] 20 U/L Normal 14-36 [facility] Comment on above: Performed By: #### O DEVENDRA #### [facility] [address] [address] [address] Toy Macario Bilirubin [Mass/Vol] 0.6 mg/dL Normal 0.2-1.3 [facility] Comment on above: Performed By: #### O DEVENDRA #### [facility] [address] [address] [address] Toy Macario Calcium [Mass/Vol] 8.7 mg/dL Normal 8.4-10.2 [facility] Comment on above: Performed By: #### O DEVENDRA #### [facility] [address] [place] [address] Dr. Toy Macario Chloride [Moles/Vol] 106 mmol/L Normal 98-107 [facility] Comment on above: Performed By: #### O DEVENDRA #### [facility] [address] [place] [address] Dr. Toy Macario CO2 [Moles/Vol] 24.7 mmol/L Normal 22.0-30.0 [facility] Comment on above: Performed By: #### O DEVENDRA #### [facility] [address] [place] [address] Dr. Toy Macario Creatinine [Mass/Vol] 0.92 mg/dL Normal 0.52-1.04 [facility] Comment on above: Performed By: #### O DEVENDRA #### [facility] [address] [place] [address] Dr. Toy Macario EGFR-AF LATVIAN >60 Normal >=60 [facility] Comment on above: Performed By: #### O DEVENDRA #### [facility] [address] [place] [address] Dr. Toy Macario EGFR-NON AF LATVIAN >60 Normal >=60 [facility] Comment on above: Performed By: #### O DEVENDRA #### [facility] [address] [place] [address] Dr. Toy Macario Globulin (S) [Mass/Vol] 4.7 g/dL Normal [facility] Comment on above: Performed By: #### O DEVENDRA #### [facility] [address] [address] [address] Toy Macario Glucose [Mass/Vol] 126 mg/dL Critically high 74-106 [facility] Comment on above: Performed By: #### O DEVENDRA #### [facility] [address] [place] [address] Dr. Toy Macario Potassium [Moles/Vol] 3.2 mmol/L Critically low 3.4-5.0 [facility] Comment on above: Performed By: #### O DEVENDRA #### [facility] [address] [place] [address] Dr. Toy Macario Protein [Mass/Vol] 6.6 g/dL Normal 6.1-8.2 [facility] Comment on above: Performed By: #### O DEVENDRA #### [facility] [address] [place] [address] Dr. Toy Macario Sodium [Moles/Vol] 141 mmol/L Normal 137-145 [facility] Comment on above: Performed By: #### O DEVENDRA #### [facility] [address] [place] [address] Dr. Toy Macario Urea nitrogen [Mass/Vol] 8.0 mg/dL Normal 7.0-17.0 [facility] Comment on above: Performed By: #### O DEVENDRA #### [facility] [address] [place] [address] Dr. Toy Macario Urea nitrogen/Creatinine [Mass ratio] 8.7 mg/mg Normal [facility] Comment on above: Performed By: #### O DEVENDRA #### [facility] [address] [place] [address] Dr. Toy Macario AMYLASEon 04-15-2021 Amylase [Catalytic activity/Vol] 97 U/L Normal 31-110 [facility] Comment on above: Performed By: #### C MP, LIPA #### [facility] [address] [place] [address] Dr. Toy Macario CBC AUTO DIFFon 04-15-2021 BASO # 0.1 103/ul Normal 0.0-0.1 [facility] Comment on above: Performed By: #### C BC #### [facility] [address] [place] [address] Dr. Toy Macario Basophils/100 WBC (Bld) 0.5 % Normal 0.2-2.0 [facility] Comment on above: Performed By: #### C BC #### [facility] [address] [place] [address] Dr. Toy Macario EO # 0.0 103/ul Normal 0.0-0.7 [facility] Comment on above: Performed By: #### C BC #### [facility] [address] [place] [address] Dr. Toy Macario Eosinophils/100 WBC (Bld) 0.3 % Critically low 0.9-7.0 [facility] Comment on above: Performed By: #### C BC #### [facility] [address] [place] [address] Dr. Toy Macario Erythrocyte distribution width (RBC) [Ratio] 13.9 % Normal 11.0-15.0 [facility] Comment on above: Performed By: #### C BC #### [facility] [address] [place] [address] Dr. Toy Macario Hematocrit (Bld) [Volume fraction] 34.2 % Critically low 36.0-48.0 [facility] Comment on above: Performed By: #### C BC #### [facility] [address] [place] [address] Dr. Toy Macario Hemoglobin (Bld) [Mass/Vol] 10.8 g/dL Critically low 12.0-16.0 [facility] Comment on above: Performed By: #### C BC #### [facility] [address] [place] [address] Dr. Toy Macario IG # 0.05 10e3/ul Critically high 0.00-0.03 [facility] Comment on above: Performed By: #### C BC #### [facility] [address] [place] [address] Dr. Toy Macario IG % 0.4 % Normal 0.0-0.5 [facility] Comment on above: Performed By: #### C BC #### [facility] [address] [place] [address] Dr. Toy Macario LYMPH # 0.9 103/ul Critically low 1.2-3.8 [facility] Comment on above: Performed By: #### C BC #### [facility] [address] [place] [address] Dr. Toy Macario Lymphocytes/100 WBC (Bld) 8.4 % Critically low 20.5-60.0 [facility] Comment on above: Performed By: #### C BC #### [facility] [address] [place] [address] Dr. Toy Macario MANUAL DIFF REQ NO Normal [facility] Comment on above: Performed By: #### C BC #### [facility] [address] [place] [address] Dr. Toy Macario MCH (RBC) [Entitic mass] 28.1 pg Normal 26.7-34.0 [facility] Comment on above: Performed By: #### C BC #### [facility] [address] [place] [address] Dr. Toy Macario MCHC (RBC) [Mass/Vol] 31.6 g/dL Normal 29.9-35.2 [facility] Comment on above: Performed By: #### C BC #### [facility] [address] [place] [address] Dr. Toy Macario MCV (RBC) [Entitic vol] 88.8 fL Normal 81.0-99.0 [facility] Comment on above: Performed By: #### C BC #### [facility] [address] [place] [address] Dr. Toy Macario MONO # 0.7 103/ul Normal 0.3-0.8 [facility] Comment on above: Performed By: #### C BC #### [facility] [address] [place] [address] Dr. Toy Macario Monocytes/100 WBC (Bld) 6.3 % Normal 1.7-12.0 [facility] Comment on above: Performed By: #### C BC #### [facility] [address] [address] [address] Toy Macario NEUT # 9.4 103/ul Critically high 1.4-6.5 [facility] Comment on above: Performed By: #### C BC #### [facility] [address] [id number] [address] Toy Macario Neutrophils/100 WBC (Bld) 84.1 % Critically high 43.0-75.0 [facility] Comment on above: Performed By: #### C BC #### [facility] [address] [address] [address] Toy Macario Platelet mean volume (Bld) [Entitic vol] 9.1 fL Critically low 9.5-13.5 [facility] Comment on above: Performed By: #### C BC #### [facility] [address] [place] [address] Dr. Toy Macario PLT 361 103/ul Normal 150-450 [facility] Comment on above: Performed By: #### C BC #### [facility] [address] [address] [address] Toy Macario RBC 3.85 106/ul Critically low 4.20-5.40 [facility] Comment on above: Performed By: #### C BC #### [facility] [address] [place], [place] [id number] Dr. Toy Macario WBC 11.2 103/ul Critically high 4.0-11.0 [facility] Comment on above: Performed By: #### C BC #### [facility] [address] [place] [address] ABD/PELV W CONon [...] URIEL GUILLEN Date: 2021-04-15 11:33 Normal [facility] CULTURE BLOODon 04-15-2021 Microscopic examination of blood, culture Culture Observations: NO GROWTH AT 5 DAYS. Normal [facility] Comment on above: Performed By: #### C [facility] #### [facility] [address] [place] [address] Dr. Toy Macario Covid-19 PCR ([facility])on 04-06 SARS-CoV-2 (COVID-19) RNA PITO+probe Ql (Unsp spec) Not detected Normal NOT DETECTED [facility] Comment on above: Result Comment: When [...] for this test is supported by the [employer] and [employer] Service's declaration that [...] used). Performed By: #### C BC #### [facility] [address] [place] [address] Dr. Toy Macario ER URINE PROFILEon 2 Bilirubin Ql (U) Negative Normal NEGATIVE [facility] Comment on above: Performed By: #### C MP, LIPA #### [facility] [address] [place] [address] Dr. Toy Macario Clarity (U) CLOUDY Abnormal CLEAR [facility] Comment on above: Performed By: #### C MP, LIPA #### [facility] [address] [place] [address] Dr. Toy Macario Color (U) YELLOW Normal YELLOW [facility] Comment on above: Performed By: #### C MP, LIPA #### [facility] [address] [place] [address] Dr. Toy Macario ERUAHD A micrscopic examination will be performed if indicated. Normal [facility] Comment on above: Performed By: #### C MP, LIPA #### [facility] [address] [place] [address] Dr. Toy Macario Glucose Ql (U) Negative Normal NEGATIVE [facility] Comment on above: Performed By: #### C MP, LIPA #### [facility] [address] [place] [address] Dr. Toy Macario Hemoglobin Ql (U) SMALL Abnormal NEGATIVE [facility] Comment on above: Performed By: #### C MP, LIPA #### [facility] [address] [place] [address] Dr. Toy Macario Ketones Ql (U) 15 mg/dl Abnormal NEGATIVE [facility] Comment on above: Performed By: #### C MP, LIPA #### [facility] [address] [place] [address] Dr. Toy Macario LEUKOCYTES TRACE Abnormal NEGATIVE [facility] Comment on above: Performed By: #### C MP, LIPA #### [facility] [address] [place] [address] Dr. Toy Macario Nitrite Ql (U) Negative Normal NEGATIVE [facility] Comment on above: Performed By: #### C MP, LIPA #### [facility] [address] [place] [address] Dr. Toy Macario pH (U) 6.0 [pH] Normal 5-9 [facility] Comment on above: Performed By: #### C MP, LIPA #### [facility] [address] [place] [address] Dr. Toy Macario Protein (U) [Mass/Vol] 100 mg/dL Abnormal NEGAT CHRISTINA/ TRACE [facility] Comment on above: Performed By: #### C MP, LIPA #### [facility] [address] [place] [address] Dr. Toy Macario SPEC GRAVITY 1.025 Normal 1.005-<=1.0 25 [facility] Comment on above: Performed By: #### C MP, LIPA #### [facility] [address] [place] [address] Dr. Toy Macario UR MICRO IND INDICATED Normal [facility] Comment on above: Performed By: #### C MP, LIPA #### [facility] [address] [place] [address] Dr. Toy Macario Urobilinogen Qn (U) 1.0 {Lisha'U}/dL Normal 0.2 - 1. 0 [facility] Comment on above: Performed By: #### C MP, LIPA #### [facility] [address] [place] [address] Dr. Toy Macario LIPASEon 04-15-2021 Lipase [Catalytic activity/Vol] 929.0 U/L Critically high 23.0-300.0 [facility] Comment on above: Performed By: #### C MP, LIPA #### [facility] [address] [place] [address] Dr. Toy Macario LIVER PROFILEon 04-15-2021 Albumin [Mass/Vol] 2.3 g/dL Critically low 3.5-5.0 [facility] Comment on above: Performed By: #### C MP, LIPA #### [facility] [address] [place] [address] Dr. Toy Macario Albumin/Globulin [Mass ratio] 0.5 {ratio} Normal [facility] Comment on above: Performed By: #### C MP, LIPA #### [facility] [address] [place] [address] Dr. Toy Macario ALP [Catalytic activity/Vol] 73 U/L Normal 38-126 [facility] Comment on above: Performed By: #### C MP, LIPA #### [facility] [address] [place] [address] Dr. Toy Macario ALT [Catalytic activity/Vol] 29 U/L Normal 9-52 [facility] Comment on above: Performed By: #### C MP, LIPA #### [facility] [address] [place] [address] Dr. Toy Macario AST [Catalytic activity/Vol] 21 U/L Normal 14-36 [facility] Comment on above: Performed By: #### C MP, LIPA #### [facility] [address] [place] [address] Dr. Toy Macario BILI, CONJUGATED 0.1 mg/dL Normal 0.0-0.3 [facility] Comment on above: Performed By: #### C MP, LIPA #### [facility] [address] [place] [address] Dr. Toy Macario Bilirubin [Mass/Vol] 0.4 mg/dL Normal 0.2-1.3 [facility] Comment on above: Performed By: #### C MP, LIPA #### [facility] [address] [place] [address] Dr. Toy Macario Globulin (S) [Mass/Vol] 5.1 g/dL Normal [facility] Comment on above: Performed By: #### C MP, LIPA #### [facility] [address] [place] [address] Dr. Toy Macario Protein [Mass/Vol] 7.4 g/dL Normal 6.1-8.2 [facility] Comment on above: Performed By: #### C MP, LIPA #### [facility] [address] [place] [address] Dr. Toy Macario URon 04-15-2021 , QUAL Negative Normal NEGATIVE [facility] Comment on above: Performed By: #### P REGU #### [facility] [address] [place] [address] Dr. Toy Macario PROF CHEM 8 (BAS METB)on Anion gap [Moles/Vol] 10.5 mmol/L Normal [facility] Comment on above: Performed By: #### C MP, LIPA #### [facility] [address] [place] [address] Dr. Toy Macario Calcium [Mass/Vol] 9.0 mg/dL Normal 8.4-10.2 [facility] Comment on above: Performed By: #### C MP, LIPA #### [facility] [address] [place] [address] Dr. Toy Macario Chloride [Moles/Vol] 102 mmol/L Normal 98-107 [facility] Comment on above: Performed By: #### C MP, LIPA #### [facility] [address] [place] [address] Dr. Toy Macario CO2 [Moles/Vol] 27.5 mmol/L Normal 22.0-30.0 [facility] Comment on above: Performed By: #### C MP, LIPA #### [facility] [address] [address] [address] Toy Macario Creatinine [Mass/Vol] 0.68 mg/dL Normal 0.52-1.04 [facility] Comment on above: Performed By: #### C MP, LIPA #### [facility] [address] [address] [address] Toy Macario EGFR-AF LATVIAN >60 Normal >=60 [facility] Comment on above: Performed By: #### C MP, LIPA #### [facility] [address] [address] [address] Toy Macario EGFR-NON AF LATVIAN >60 Normal >=60 [facility] Comment on above: Performed By: #### C MP, LIPA #### [facility] [address] [address] [address] Toy Macario Glucose [Mass/Vol] 137 mg/dL Critically high 74-106 [facility] Comment on above: Performed By: #### C MP, LIPA #### [facility] [address] [address] [address] Toy Macario Potassium [Moles/Vol] 3.5 mmol/L Normal 3.4-5.0 [facility] Comment on above: Performed By: #### C MP, LIPA #### [facility] [address] [address] [address] Toy Macario Sodium [Moles/Vol] 139 mmol/L Normal 137-145 [facility] Comment on above: Performed By: #### C MP, LIPA #### [facility] [address] [address] [address] Toy Macario Urea nitrogen [Mass/Vol] 7.0 mg/dL Normal 7.0-17.0 [facility] Comment on above: Performed By: #### C MP, LIPA #### [facility] [address] [address] [address] Toy Macario Urea nitrogen/Creatinine [Mass ratio] 10.3 mg/mg Normal [facility] Comment on above: Performed By: #### C MP, LIPA #### [facility] [address] [address] [address] Toy Macario URINE MICROSCOPIC ONLYon AMORPHOUS CRYSTALS MODERATE Normal [facility] Comment on above: Performed By: #### C MP, LIPA #### [facility] [address] [place] [address] Dr. Toy Macario BACTERIA SMALL Abnormal NONE SEEN [facility] Comment on above: Performed By: #### C MP, LIPA #### [facility] [address] [address] [address] Toy Macario Bacteria identified Cx Nom (U) INDICATED Normal [facility] Comment on above: Performed By: #### C MP, LIPA #### [facility] [address] [place] [address] Dr. Toy Macario CAST NONE SEEN Normal NONE SEEN [facility] Comment on above: Performed By: #### C MP, LIPA #### [facility] [address] [place] [address] Dr. Toy Macario Crystals LM Nom (Urine sed) SEEN Abnormal NONE SEEN [facility] Comment on above: Performed By: #### C MP, LIPA #### [facility] [address] [place] [address] Dr. Toy Macario Epithelial cells LM Ql (Urine sed) FEW Abnormal NONE SEEN /RARE [facility] Comment on above: Performed By: #### C MP, LIPA #### [facility] [address] [place] [address] Dr. Toy Macario MUCOUS SMALL Abnormal NONE SEEN [facility] Comment on above: Performed By: #### C MP, LIPA #### [facility] [address] [place] [address] Dr. Toy Macario RBC 2-5 Abnormal 0-2 [facility] Comment on above: Performed By: #### C MP, LIPA #### [facility] [address] [place] [address] Dr. Toy Macario WBC 5-10 Abnormal NONE SEEN [facility] Comment on above: Performed By: #### C MP, LIPA #### [facility] [address] [place], [place] [id number] Dr. Toy Macario CBC AUTO DIFFon 03-19-2021 BASO # 0.1 103/ul Normal 0.0-0.1 [facility] Comment on above: Performed By: #### O DEVENDRA #### [facility] [address] [place] [address] Dr. Toy Macario Basophils/100 WBC (Bld) 0.6 % Normal 0.2-2.0 [facility] Comment on above: Performed By: #### O DEVENDRA #### [facility] [address] [place] [address] Dr. Toy Macario EO # 0.1 103/ul Normal 0.0-0.7 [facility] Comment on above: Performed By: #### O DEVENDRA #### [facility] [address] [place] [address] Dr. Toy Macario Eosinophils/100 WBC (Bld) 0.5 % Critically low 0.9-7.0 [facility] Comment on above: Performed By: #### O DEVENDRA #### [facility] [address] [place] [address] Dr. Toy Macario Erythrocyte distribution width (RBC) [Ratio] 14.7 % Normal 11.0-15.0 [facility] Comment on above: Performed By: #### O DEVENDRA #### [facility] [address] [place] [address] Dr. Toy Macario Hematocrit (Bld) [Volume fraction] 40.8 % Normal 36.0-48.0 [facility] Comment on above: Performed By: #### O DEVENDRA #### [facility] [address] [place] [address] Dr. Toy Macario Hemoglobin (Bld) [Mass/Vol] 12.8 g/dL Normal 12.0-16.0 [facility] Comment on above: Performed By: #### O DEVENDRA #### [facility] [address] [place] [address] Dr. Toy Macario IG # 0.04 10e3/ul Critically high 0.00-0.03 [facility] Comment on above: Performed By: #### O DEVENDRA #### [facility] [address] [address] [address] Toy Macario IG % 0.3 % Normal 0.0-0.5 [facility] Comment on above: Performed By: #### O DEVENDRA #### [facility] [address] [address] [address] Toy Macario LYMPH # 1.0 103/ul Critically low 1.2-3.8 [facility] Comment on above: Performed By: #### O DEVENDRA #### [facility] [address] [address] [address] Toy Macario Lymphocytes/100 WBC (Bld) 8.1 % Critically low 20.5-60.0 [facility] Comment on above: Performed By: #### O DEVENDRA #### [facility] [address] [place] [address] Dr. Toy Macario MANUAL DIFF REQ NO Normal [facility] Comment on above: Performed By: #### O DEVENDRA #### [facility] [address] [place] [address] Dr. Toy Macario MCH (RBC) [Entitic mass] 28.1 pg Normal 26.7-34.0 [facility] Comment on above: Performed By: #### O DEVENDRA #### [facility] [address] [place] [address] Dr. Toy Macario MCHC (RBC) [Mass/Vol] 31.4 g/dL Normal 29.9-35.2 [facility] Comment on above: Performed By: #### O DEVENDRA #### [facility] [address] [place] [address] Dr. Toy Macario MCV (RBC) [Entitic vol] 89.7 fL Normal 81.0-99.0 [facility] Comment on above: Performed By: #### O DEVENDRA #### [facility] [address] [address] [address] Toy Macario MONO # 0.8 103/ul Normal 0.3-0.8 [facility] Comment on above: Performed By: #### O DEVENDRA #### [facility] [address] [place] [address] Dr. Toy Macario Monocytes/100 WBC (Bld) 6.3 % Normal 1.7-12.0 [facility] Comment on above: Performed By: #### O DEVENDRA #### [facility] [address] [place] [address] Dr. Toy Macario NEUT # 10.0 103/ul Critically high 1.4-6.5 [facility] Comment on above: Performed By: #### O DEVENDRA #### [facility] [address] [place] [address] Dr. Toy Macario Neutrophils/100 WBC (Bld) 84.2 % Critically high 43.0-75.0 [facility] Comment on above: Performed By: #### O DEVENDRA #### [facility] [address] [place] [address] Dr. Toy Macario Platelet mean volume (Bld) [Entitic vol] 9.5 fL Normal 9.5-13.5 [facility] Comment on above: Performed By: #### O DEVENDRA #### [facility] [address] [place] [address] Dr. Toy Macario PLT 216 103/ul Normal 150-450 [facility] Comment on above: Performed By: #### O DEVENDRA #### [facility] [address] [place] [address] Dr. Toy Macario RBC 4.55 106/ul Normal 4.20-5.40 [facility] Comment on above: Performed By: #### O DEVENDRA #### [facility] [address] [place] [address] Dr. Toy Macario WBC 11.9 103/ul Critically high 4.0-11.0 [facility] Comment on above: Performed By: #### O DEVENDRA #### [facility] [address] [place] [address] ABD/PELV W CONon [...] ART NIX Date: 2021-03-19 15:19 Normal [facility] CULTURE URINEon 03-19-2021 CULTURE URINE Culture Observations : LIGHT GROWTH OF MIXED GENITAL CHRIS. NO POTENTIAL PATHOGENS SEEN. Normal [facility] Comment on above: Performed By: #### [facility] #### [facility] [address] [place] [address] Dr. Toy Macario Covid-19 PCR ([facility])on 03-06 SARS-CoV-2 (COVID-19) RNA PITO+probe Ql (Unsp spec) Not detected Normal NOT DETECTED [facility] Comment on above: Result Comment: When [...] for this test is supported by the Aerial Photogrammetrist of Health and Human Service's declaration that [...] Performed By: #### C MP, LIPA #### [facility] [address] [place] [address] Dr. Toy Macario ER URINE PROFILEon 2 Bilirubin Ql (U) SMALL Abnormal NEGATIVE [facility] Comment on above: Performed By: #### C VDTBH #### [facility] [address] [place] [address] Dr. Toy Macario Clarity (U) SL CLOUDY Abnormal CLEAR [facility] Comment on above: Performed By: #### C VDTBH #### [facility] [address] [place] [address] Dr. Toy Macario Color (U) YELLOW Normal YELLOW [facility] Comment on above: Performed By: #### C VDTBH #### [facility] [address] [place] [address] Dr. Toy Macario ERUBARBARA A micrscopic examination will be performed if indicated. Normal [facility] Comment on above: Performed By: #### C VDTBH #### [facility] [address] [place] [address] Dr. Toy Macario Glucose Ql (U) Negative Normal NEGATIVE [facility] Comment on above: Performed By: #### C VDTBH #### [facility] [address] [place] [address] Dr. Toy Macario Hemoglobin Ql (U) Negative Normal NEGATIVE [facility] Comment on above: Performed By: #### C VDTBH #### [facility] [address] [place] [address] Dr. Toy Macario Ketones Ql (U) Negative Normal NEGATIVE [facility] Comment on above: Performed By: #### C VDTBH #### [facility] [address] [place] [address] Dr. Toy Macario LEUKOCYTES SMALL Abnormal NEGATIVE [facility] Comment on above: Performed By: #### C VDTBH #### [facility] [address] [place] [address] Dr. Toy Macario Nitrite Ql (U) Negative Normal NEGATIVE [facility] Comment on above: Performed By: #### C VDTBH #### [facility] [address] [place] [address] Dr. Toy Macario pH (U) 6.0 [pH] Normal 5-9 [facility] Comment on above: Performed By: #### C VDTBH #### [facility] [address] [place] [address] Dr. Toy Macario Protein (U) [Mass/Vol] 30 mg/dL Abnormal NEGAT CHRISTINA/ TRACE [facility] Comment on above: Performed By: #### C VDTBH #### [facility] [address] [place] [address] Dr. Toy Macario SPEC GRAVITY >=1.030 Abnormal 1.005-<=1.0 25 [facility] Comment on above: Performed By: #### C VDTBH #### [facility] [address] [place] [address] Dr. Toy Macario UR MICRO IND INDICATED Normal [facility] Comment on above: Performed By: #### C VDTBH #### [facility] [address] [place] [address] Dr. Toy Macario Urobilinogen Qn (U) 1.0 {Lisha'U}/dL Normal 0.2 - 1. 0 [facility] Comment on above: Performed By: #### C VDTBH #### [facility] [address] [place] [address] Dr. Toy Macario INFLUENZA A AND B AGon 03-19 INFLUANEGH SEE BELOW Normal [facility] Comment on above: Result Comment: Nega tive for Flu A protein angiten. Infection due to Flu A cannot be ruled out. Flu A angiten in the sample may be below the detection limit of the test. Performed By: #### L IPA, CMP #### [facility] [address] [place] [address] Dr. Toy Macario INFLUBNEGH SEE BELOW Normal [facility] Comment on above: Result Comment: Nega tive for Flu B protein antigen. Infection due to Flu B cannot be ruled out. Flu B antigen in the sample may be below the detection limit of the test. Performed By: #### L IPA, CMP #### [facility] [address] [place] [address] Dr. Toy Macario INFLUENZA A AG Negative Normal NEGATIVE SEE COMMENT [facility] Comment on above: Performed By: #### L IPA, CMP #### [facility] [address] [place] [address] Dr. Toy Macario INFLUENZA B AG Negative Normal NEGATIVE SEE COMMENT [facility] Comment on above: Performed By: #### L IPA, CMP #### [facility] [address] [place] [address] Dr. Toy Macario INTERNAL CONTROLS Within Normal Limits Normal Wi thin Normal Limits [facility] Comment on above: Performed By: #### L IPA, CMP #### [facility] [address] [place] [address] Dr. Toy Macario LIPASEon 03-19-2021 Lipase [Catalytic activity/Vol] 134.0 U/L Normal 23.0-300.0 [facility] Comment on above: Performed By: #### C MP, LIPA #### [facility] [address] [place] [address] Dr. Toy Macario URon 03-19-2021 , QUAL Negative Normal NEGATIVE [facility] Comment on above: Performed By: #### O DEVENDRA #### [facility] [address] [address] [address] Toy Macario PROF 14(COMP METB)on 022 Albumin [Mass/Vol] 3.3 g/dL Critically low 3.5-5.0 [facility] Comment on above: Performed By: #### C MP, LIPA #### [facility] [address] [place] [address] Dr. Toy Macario Albumin/Globulin [Mass ratio] 0.8 {ratio} Normal [facility] Comment on above: Performed By: #### C MP, LIPA #### [facility] [address] [place] [address] Dr. Toy Macario ALP [Catalytic activity/Vol] 151 U/L Critically high 38-126 [facility] Comment on above: Performed By: #### C MP, LIPA #### [facility] [address] [place] [address] Dr. Toy Macario ALT [Catalytic activity/Vol] 105 U/L Critically high 9-52 [facility] Comment on above: Performed By: #### C MP, LIPA #### [facility] [address] [place] [address] Dr. Toy Macario Anion gap [Moles/Vol] 11.6 mmol/L Normal [facility] Comment on above: Performed By: #### C MP, LIPA #### [facility] [address] [address] [address] Toy Macario AST [Catalytic activity/Vol] 222 U/L Critically high 14-36 [facility] Comment on above: Performed By: #### C MP, LIPA #### [facility] [address] [address] [address] Toy Macario Bilirubin [Mass/Vol] 1.3 mg/dL Normal 0.2-1.3 [facility] Comment on above: Performed By: #### C MP, LIPA #### [facility] [address] [address] [address] Toy Macario Calcium [Mass/Vol] 8.8 mg/dL Normal 8.4-10.2 [facility] Comment on above: Performed By: #### C MP, LIPA #### [facility] [address] [address] [address] Toy Macario Chloride [Moles/Vol] 107 mmol/L Normal 98-107 [facility] Comment on above: Performed By: #### C MP, LIPA #### [facility] [address] [place] [address] Dr. Toy Macario CO2 [Moles/Vol] 25.7 mmol/L Normal 22.0-30.0 [facility] Comment on above: Performed By: #### C MP, LIPA #### [facility] [address] [place] [address] Dr. Toy Macario Creatinine [Mass/Vol] 0.92 mg/dL Normal 0.52-1.04 [facility] Comment on above: Performed By: #### C MP, LIPA #### [facility] [address] [place] [address] Dr. Toy Macario EGFR-AF LATVIAN >60 Normal >=60 [facility] Comment on above: Performed By: #### C MP, LIPA #### [facility] [address] [place] [address] Dr. Toy Macario EGFR-NON AF LATVIAN >60 Normal >=60 [facility] Comment on above: Performed By: #### C MP, LIPA #### [facility] [address] [place] [address] Dr. Toy Macario Globulin (S) [Mass/Vol] 3.9 g/dL Normal [facility] Comment on above: Performed By: #### C MP, LIPA #### [facility] [address] [place] [address] Dr. Toy Macario Glucose [Mass/Vol] 168 mg/dL Critically high 74-106 [facility] Comment on above: Performed By: #### C MP, LIPA #### [facility] [address] [place] [address] Dr. Toy Macario Potassium [Moles/Vol] 4.3 mmol/L Normal 3.4-5.0 [facility] Comment on above: Performed By: #### C MP, LIPA #### [facility] [address] [place] [address] Dr. Toy Macario Protein [Mass/Vol] 7.2 g/dL Normal 6.1-8.2 [facility] Comment on above: Performed By: #### C MP, LIPA #### [facility] [address] [place] [address] Dr. Toy Macario Sodium [Moles/Vol] 140 mmol/L Normal 137-145 [facility] Comment on above: Performed By: #### C MP, LIPA #### [facility] [address] [place] [address] Dr. Toy Macario Urea nitrogen [Mass/Vol] 8.0 mg/dL Normal 7.0-17.0 [facility] Comment on above: Performed By: #### C MP, LIPA #### [facility] [address] [place] [address] Dr. Toy Macario Urea nitrogen/Creatinine [Mass ratio] 8.7 mg/mg Normal [facility] Comment on above: Performed By: #### C MP, LIPA #### [facility] [address] [place] [address] Dr. Toy Macario URINE MICROSCOPIC ONLYon BACTERIA MODERATE Abnormal NONE SEEN [facility] Comment on above: Performed By: #### C VDTBH #### [facility] [address] [place] [address] Dr. Toy Macario Bacteria identified Cx Nom (U) INDICATED Normal [facility] Comment on above: Performed By: #### C VDTBH #### [facility] [address] [place] [address] Dr. Toy Macario CAST NONE SEEN Normal NONE SEEN [facility] Comment on above: Performed By: #### C VDTBH #### [facility] [address] [place] [address] Dr. Toy Macario Crystals LM Nom (Urine sed) NONE SEEN Normal NONE SEEN [facility] Comment on above: Performed By: #### C VDTBH #### [facility] [address] [address] [address] Toy Macario Epithelial cells LM Ql (Urine sed) MODERATE Abnormal NONE SEEN /RARE [facility] Comment on above: Performed By: #### C VDTBH #### [facility] [address] [address] [address] Toy Macario MUCOUS MODERATE Abnormal NONE SEEN [facility] Comment on above: Performed By: #### C VDTBH #### [facility] [address] [address] [address] Toy Macario RBC 5-10 Abnormal 0-2 [facility] Comment on above: Performed By: #### C VDTBH #### [facility] [address] [address] [address] Toy Macario WBC 10-20 Abnormal NONE SEEN [facility] Comment on above: Performed By: #### C VDTBH #### [facility] [address] [address] [address] Toy Macario Coding Summaryon 09-18-2020 [facility] NgmgmzsyFKf2yQa+PGhlYW Q+AE4UOVNmR01gfPVydZ7X X5wYTI4YSSPQACOXRJ8BID 3zbIC7DFfkN2HgoyDb GhzhqRZyXO97QZa6SVF0oD nsRIcnaW0tjJTdY7v8XdId EJ48cB10SLuhVNUmAnJ6Ln ZpbjsgbWFy X0qxXqIwfLXeNgt+PHRhYm xlIHdpZHRoPScxMDAlJyBz bTdiCJ1qVt9rFFDeAAYdzK xhcHNlOiBj v3elDYWtJRyaNL3svNjeJ4 EryGM5PFAoa0s4Jv60kHH+ BDUfFTW3jNsnTCmfd024Nx Nbh3qaTNB7 uLYnTKzkFIM1O37jx4J3TB ZbGKQiCJT9lBW3oZ3oyIoc myyxQ3VxhFVgQyA9BBD9qT NcrD3jkPgj tzsaqY0qVas+R53XLM0MKV KJJF6GYvu9B2OyJwrgfOM+ XH50QLOlJB15fIUaiPIka4 aaxUp9BdCe NZLuSTP5wJerWTdkr3ZfML XkQ51fwXRsc5P0LTPgsFtn bUXbGnCpqQU6qD2dVAyqcx xsw0juxdum Nflxx7xzif37kP54W85oMD nkCODeFXP0CTWiBPBknZbf iq2cmY4xWp1+PKvfm8bjg6 qpfHd1ObCh EYSnpyPlzTamRQP7a0RmKo 75F5WdxLmbw6NeXzx4hu30 hSAgl4N5xCX6JJfdOCXbnV 8qRYteJrE2 MANfDhOrrV54dTOoVMatYi 6eaMvsePjnXG0jTXMrxhdv MAOyzR3iWLDuhBZfiMzbWU 4wNTBpbjtm v039EpKvZGF9FQQsxAXjJ1 LrgW5zNpKvQWSjCEDaO9Gq rVCbULzoP193VWdoKfW0AJ JpghFhA8Gn CVYlbYxbPwX2w3C1Zt8Hn2 XjtunuFEG4OInmSIK0RrM4 LxKqXuI1V9TcJij6WNZtkD swWP7uT2Ra AXNmalwppgtpoBO0DKVmGB FwvE50vFOvXMpzXf1oe7Y5 a016VMOfVXCxyW40Uy0knO ogMTBwdCBU rH9uldsns5unmgcpHgXcDG UsDVd1IZt1SHFgpScwHjZi MUU3DjE2NMT9gRZmtN8cjU kecsjkeL9n Oyc+I72dwB6tOKU2HWF4mz ueJQAgxnHyIQ98YY28Q9Ga PjwvdGFibGU+PGRpdiBzdH uxTI4gHcKp h7wrf1GvFPfxY1CfYDMfIH ioJki8FZVtQZL7eGC1mS4z GJZtKVjji2T4lPB6E6Wkci Wbau9vq3tb KYJhHOtiV71xeBNvw9V9QF IduYD5ZSXtiZotQpNuoJ02 Oyc+KCDrdLgdf5GjKbsni8 kfg7vjfTn9 JpHqIATqetAeuWlzFVE5j0 LkTl54Z88jNRsaJAMtKJNf JIMzGBBfnGdrnb3htA0dYi 8+PGNvbCB3 aSW9gV7kXSSwVkB7TFyvU7 68AsQzjHKfVaenq3lhd9wx uYt1SpBcLZNouvFqfZstVR D0e3JpDo09 N04zEEgtFLIxBDEwQTDlVD RgsXgkoq7nqZ8yPt1+PC9j x7wufs01dW55hWD+PHRkIH H7dKnvZPze NJZaaG2uENjwKmK3AJEmNc EuwP39qBYtWVjtCp5ufVdq nRpmPX7uVMYaswwjg962Xp Ibd3chZPQj gSIeOOynIAH1F63vh1X4HB DhFHSnBDM4yIW2wB9pqObx bjogbGVmdDsgdmVydGljYW fmAPljE502 IHRvcDsnPlBhdGllbnQgTm HmUFn9Q0BiZup7JDMkgEax OQ4iwGEoBIijCy6kiHsgqB jpBZ6tPOJe mmjyw387SjIne0iqFTYoiU YnKGfwUDS1I18vh1M7JZLn DXWkATV6dMN9bN4btSjfqs ogbGVmdDsg ynTrtRpwPGzhECkxO199WB RvcDsnPkJpcnRoIERhdGU6 EC24VJ07rNGig4Z2sPE8T7 BhZGRpbmct zbzzeCI6EYWlZXCghT00Gp 9uoQxsTx3dVOMtESS6GJTz oXNpN6LbwY1mSmUyCDMbWY QlA2RpyHUc ZJilE093JGifNkR0WERnyd GzD6VkIQDmyMdlZiZ5y6C5 Hb7UG1M8PS73IC96bNPqn9 S6nTF6S6Sz LSUylpqqiabveLL3GXEeOW XhrG86Ey2xcNijMp1wDQVg YLU9HQIurJEeB5WalZ3uNj AjMDAwMDAw J3NfpGIpDBgcZ511UPnwJb E9IVIsljHgH1PgLKDtfQfh MfU1o4H6Bc6ZVXi1QA93AX 96fROrd2Z7 pFB7O4MgPUKaijqntbqvlC D1MIZmBFQfzB78Sa6qcAqz Pe7yTDBsPBF6TBEhnYTeD9 OksG0jOpFu PTVvOEFeO2AwnTEfNXaoI4 51ZQpmMoG0VSIysxRlF1On GCHymOqmAtL6p5D9Ub0JGO ItBB32LUX6 bEK4EP56PO60W9WjGdwgjO FibGU+PHRhYmxlIHdpZHRo XAxdAKKzWxOejPpwMY5xCk 9yZGVyLWNv vDwksFFcHuQgi2uxGSAiYY lpEQ8joKqaZ4JokQA2ZHLb t7p6Fr06N24kW9HpeQJ+PG VbdIO7vPQ7 mE1dHkQhPfC7XLdjC098Lw QmdEUuHpqhn1kqp1fzfZn2 KkU5GRGcqkKqbHicSUP6f4 HsEh77U59t IHdpZHRoPSIxNSUiIHZhbG rxwa2eyC2mMc1+PGNvbCB3 kLS3dQ2sEeUjPqB0XAbxU4 49InRvcCIv Iuetb5wuc2ucmLj0WvDeRT RijjSaaUnhCER5b3NlKy72 X0KwzZole8AgNfb9hl65vB Bcv6R4zRB0 A4KuXZVjgtcolLYidPwbQP 7hZVVftfkmMCMzxV5tIFKr W6t1BqTwQcG9LXqcX4Jief S5AJWslNPa FJsgYLR2J91vb6A0JWJsDE EyZNO1eCS1xB9viLgjkmkj bGVmdDsgdmVydGljYWwtYW nbU093PAHl pObkZQFezO2aMICkvKFlqB izNS7nKPCsblhgXnqXYh7Y C8FCYWQYRSGLBQS9G9KaSd f6TGQoyRsm OS5luKUwAGdzCs7tgPnybD plIB5gYQNugxmhIYRveN4t SUYwbGWrvEkdZW4xXFKena bke211ReOw KLK1KEGvnEBcN3SqaC1sIa KpGCSbKHGtK4WoaCIeJGdv H030IXdePkQ5EBMozuSeS5 FsLWFsaWdu PjJ2b9Q6Km9uMF3qQF6aUY w2JU96VE23eZEyz7Q7oTI9 B9SjIJMqijooharcjQV5TY BwEVLkrM30 kCUhWXwvPw9mq9W1l745SA VxYCAomA12In2ayEziTPEx dRYRuN9wwhptv3hcvzwrFl AwMDAwMDt0 LGf5SWZwkQlyPrWzHUI3Se P7LZX6vKXzkS5suChlvrtc gN6mNxg+EIEpPKImmlE9W5 LcEby4JNMn sGwtQW0sjNNmJSieOi1uvN plaXrjKT2lHAEhznbqUJVk zO0uBBPaeAFjaTswPD0qSG Gamgtak523 ImQlGKW7ETPgnTLmH7PeyE 5jGbWaQGGoJNVpG4JfqYPv BXugN581EZihEmA2IOEpav VuQ3UkXWEu cRswXeZ7f9N3Jb3XAB2WKL Y9C0LuWne0JNBekCywBN8c rGGtDJxzQn2mmCprvAvsJL 4wNTBpbjtw QUChjH6fXFIfqGZntIujHO 6mLARonrery436KtBfJTU6 HEEotGYvB3RdqB4uWhGoXV FyJJZnS1Nd hKTvRFywS674TGpoMcC7YC VekcLyQ8QpJHFcgDmaYcZ4 m9I0Xc9HkLLdINMeZY20OO luIGEgQmVk QN12LN25G3GvJjyzbJTzjA U+PHRhYmxlIHdpZHRoPScx IXVsZuUygCqnTF7iMy3mYK VyLWNvbGxh yCJpWgZxg3amYSWlBFvvAO 4ueOomU9LshWJ9NPMrs3u9 Zk20T12jJ8FkpPB+PGNvbC R0mKK4dA7t EuRdNbK6HCtaZ403TcXswK TpGvmvs8kor8igkLl7PuHp HYNuhdJaeYowKGV7l9ZnUp 17A93iKErt ZHRoPSIyMCUiIHZhbGlnbj 5wwN1sNv1+WDLttBN4nNZ9 bG4uYhSlQfE7BXqmR429Nf RvcCIvPjwv U04fM0UgoNG+AEOuGey2HH QfjNosTP3lcVBfREkfRg7i CJW1FdUwXvQpHLcgE7IwGA Rpbmctcmln iYN3NTHuHTHctU38Ik1pxG itKa5yYCJoGFL9PWEesHMe F7RqfK6oQqYkCWAaLRFnM4 RleHQtYWxp B535LFeqAeJ9EAAuolYgO1 KaVPUcvMtfYaX2d8J2Hh6B iFjtlLZwTC7wDlTqXPr4Z4 SkWkd1JKYh wWshAL3lzPVvKDnaPu3wxE mheAkbUY9cIQHillrfs982 JxIwq9rrEULbwRZcUCbtSO Y8V33ln1T2 EVTxHPWjIGW4jAU8mS2gaK lnbjogbGVmdDsgdmVydGlj BZqvHQuyY099JPHttAvzHf BNStz0G8Ig Mux7KSFvfZgdAJ8amADzGZ frEa4lsIithNtvIP9bTDQn nmyka012OaPem9ruXTBsaZ QgVGltZXM7 N05se8S2SHUtYFXtOXF9jX V5hZ6ztHmjrkksvWYzdJwy smNhnQlvJEkyNQyjF992LD SqjPgeLe4W Yfr5C6IbAhf5RJNwqMutUP 3bbVIrKIunMl0osCvyiEuk US7vFCEawmqsx773VyBxt8 xkIDEwcHQg FFcpDZU9T68jf2A5TLZoLT FbRXK7sZZ7mT5usXhwuder bGVmdDsgdmVydGljYWwtYW qcL441JQSh cDsnPlBheWVyOjwvdGQ+PC 30pk40X0AlQxpiVbm4DEDy IHJ6gNU1dA7nHEEaZFxfr9 R4jOL1M7Rq cmR (more content not included)... [facility] Consultation/Specialist Note on 09-16-2020 Consultation/Specialist Note HOME SLEEP STUDY DATE OF STUDY: 09/10/2020 INDICATION FOR STUDY: Sleep apnea. Home sleep testing was performed without sleep staging but with continuous measurement of body position, oxygen saturations, heart rate, snore volumes, thoracic, abdominal movement and nasal flow. As sleep is not measured for eyb-ni-vhscfo home testing index time consists of time [...] is advised. Uriel Stone M.D. JOB #: [id number] bk CC: Tamara Calero DO [Electronically Signed on: 09/16/2020 13:28 EDT] Uriel Stone MD [Verified on: 09/16/2020 13:28 EDT] Uriel Stone MD [Transcribed on: 09/16/2020 11:10 EDT] [facility] Sleep Studyon 09-16-2020 Sleep Study [id number]#1.[facility] Provider Orders [id number]#1.[address] [place] [address] Provider [place] 08-28-2020 Provider Orders [id number]#1.[address] [place] [address] Provider Ord[place] 08-27-2020 Provider Orders [id number]#1.[address] [place] [address] Flu A/B Ag Detectionon 03-11 Flu A/B Ag Detection Specimen Descriptio n .NASOPHARYNGEAL SWABSpecial Requests NOT REPORTEDDirect Exam PRESUMPTIVE NEGATIVE for Influenza A + B antigens. PCR testing to confirm this result is available upon request. Specimen will be saved in the laboratory for 7 days. Please call [phone] if PCR testing is indicated. Report Status FINAL 03/11/2018 [facility] Comment on above: Performed By: #### F LUAD ####[facility] [place] [address] Vital Signs Date Time Vital Sign Value Performing Clinician Facility 07-06-2024 00:25-0400 Body height 167.64 cm Josette OSEI Work Phone: [facility] 07-06-2024 00:25-0400 Body temperature 97.7 [degF] Josette OSEI Work Phone: [facility] 07-06-2024 00:25-0400 Body weight 109.1 kg Josette Tequila [employer]ICAL CLAIMS ANALYST-C Work Phone: [facility] 07-06-2024 00:25-0400 Diastolic blood pressure 55 mm[Hg] Josette Tequila MEDICAL CLAIMS ANALYST-C Work Phone: [facility] 07-06-2024 00:25-0400 Heart rate 72 /min Josette Tequila MEDICAL CLAIMS ANALYST-C Work Phone: [facility] 07-06-2024 00:25-0400 Respiratory rate 18 /min Josette Tequila MEDICAL CLAIMS ANALYST-C Work Phone: [facility] 07-06-2024 00:25-0400 SaO2% (BldA) [Mass fraction] 98 % Josette Tequila [employer]ICAL CLAIMS ANALYST-C Work Phone: [facility] 07-06-2024 00:25-0400 Systolic blood pressure 99 mm[Hg] Josette Tequila [employer]ICAL CLAIMS ANALYST-C Work Phone: [facility] 06-25-2024 15:06-0400 Body height 167.64 cm Josette Tequila MEDICAL CLAIMS ANALYST-C Work Phone: [facility] 06-25-2024 15:06-0400 Body mass index (BMI) [Ratio] 38.1 kg/m2 Josette Tequila MEDICAL CLAIMS ANALYST-C Work Phone: [facility] 06-25-2024 15:06-0400 Body temperature 97.5 [degF] Josettecherri Talaveramer MEDICAL CLAIMS ANALYST-C Work Phone: [facility] 06-25-2024 15:06-0400 Body weight 107.27 kg Josette Tequila [employer]ICAL CLAIMS ANALYST-C Work Phone: [facility] 06-25-2024 15:06-0400 Diastolic blood pressure 47 mm[Hg] Josette Tequila [employer]ICAL CLAIMS ANALYST-C Work Phone: [facility] 06-25-2024 15:06-0400 Heart rate 84 /min Josettecherri Talaveramer [employer]ICAL CLAIMS ANALYST-C Work Phone: [facility] 06-25-2024 15:06-0400 Respiratory rate 20 /min Josette Tequila MEDICAL CLAIMS ANALYST-C Work Phone: [facility] 06-25-2024 15:06-0400 SaO2% (BldA) [Mass fraction] 96 % Josette Mandel [employer] CLAIMS ANALYST-C Work Phone: [facility] 06-25-2024 15:06-0400 Systolic blood pressure 85 mm[Hg] Josette Mandel [employer] CLAIMS ANALYST-C Work Phone: [facility] 06-14-2024 07:30-0400 Body temperature 97.5 [degF] Tamara Whitei DO Work Phone: [facility] 06-14-2024 07:30-0400 Diastolic blood pressure 70 mm[Hg] Tamara Whitei DO Work Phone: [facility] 06-14-2024 07:30-0400 Heart rate 79 /min Tamara Whitei DO Work Phone: [facility] 06-14-2024 07:30-0400 Respiratory rate 16 /min Tamara Whitei DO Work Phone: [facility] 06-14-2024 07:30-0400 SaO2% (BldA) [Mass fraction] 97 % Tamara Whitei DO Work Phone: [facility] 06-14-2024 07:30-0400 Systolic blood pressure 117 mm[Hg] Tamara Whitei DO Work Phone: [facility] 06-12-2024 12:34-0400 Body height 167.64 cm Tamara Whitei DO Work Phone: [facility] 06-11-2024 22:45-0400 Body weight 107 kg Tamara Whitei DO Work Phone: [facility] 06-11-2024 16:48-0400 Body height 167.64 cm Tamara Whitei DO Work Phone: [facility] 06-11-2024 16:48-0400 Body temperature 97.9 [degF] Tamara Calero DO Work Phone: [facility] 06-11-2024 16:48-0400 Body weight 107 kg Tamara Calero DO Work Phone: [facility] 06-11-2024 16:48-0400 Diastolic blood pressure 72 mm[Hg] Tamara Calero DO Work Phone: [facility] 06-11-2024 16:48-0400 Heart rate 106 /min Tamara Calero DO Work Phone: [facility] 06-11-2024 16:48-0400 Respiratory rate 18 /min Tamara Calero DO Work Phone: [facility] 06-11-2024 16:48-0400 SaO2% (BldA) [Mass fraction] 96 % Tamara Calero DO Work Phone: [facility] 06-11-2024 16:48-0400 Systolic blood pressure 131 mm[Hg] Tamara Calero DO Work Phone: [facility] 03-31-2024 12:25-0500 Body height 167.64 cm Tamara Calero DO Work Phone: [facility] 03-31-2024 12:25-0500 Body mass index (BMI) [Ratio] 39.7 kg/m2 Tamara Calero DO Work Phone: [facility] 03-31-2024 12:25-0500 Body temperature 98.6 [degF] Tamara Calero DO Work Phone: [facility] 03-31-2024 12:25-0500 Body weight 111.78 kg Tamara Calero DO Work Phone: [facility] 03-31-2024 12:25-0500 Diastolic blood pressure 69 mm[Hg] Tamara Calero DO Work Phone: [facility] 03-31-2024 12:25-0500 Heart rate 90 /min Tamara Calero DO Work Phone: [facility] 03-31-2024 12:25-0500 Respiratory rate 18 /min Tamara Calero DO Work Phone: [facility] 03-31-2024 12:25-0500 SaO2% (BldA) [Mass fraction] 93 % Tamara Calero DO Work Phone: [facility] 03-31-2024 12:25-0500 Systolic blood pressure 113 mm[Hg] Tamara Calero DO Work Phone: [facility] 03-07-2024 10:01-0500 Body height 167 cm Stephanie Webster MD Work Phone: [facility] 03-07-2024 10:01-0500 Body mass index (BMI) [Ratio] 39.85 kg/m2 Stephanie Webster MD Work Phone: [facility] 03-07-2024 10:01-0500 Body temperature 97 [degF] Stephanie Webster MD Work Phone: [facility] 03-07-2024 10:01-0500 Body weight 111.13 kg Stephanie Webster MD Work Phone: [facility] 03-07-2024 10:01-0500 Diastolic blood pressure 88 mm[Hg] Stephanie Webster MD Work Phone: [facility] 03-07-2024 10:01-0500 Heart rate 61 /min Stephanie Webster MD Work Phone: [facility] 03-07-2024 10:01-0500 Respiratory rate 20 /min Stephanie Webster MD Work Phone: [facility] 03-07-2024 10:01-0500 SaO2% (BldA) [Mass fraction] 92 % Stephanie Webster MD Work Phone: [facility] 03-07-2024 10:01-0500 Systolic blood pressure 156 mm[Hg] Stephanie Webster MD Work Phone: [facility] 02-12-2024 15:53-0500 Diastolic blood pressure 52 mm[Hg] Tamara Calero DO Work Phone: [facility] 02-12-2024 15:53-0500 Systolic blood pressure 83 mm[Hg] Tamara Calero DO Work Phone: [facility] 02-12-2024 15:53-0500 Body height 167.64 cm Tamara Claero DO Work Phone: [facility] 02-12-2024 15:53-0500 Body mass index (BMI) [Ratio] 39 kg/m2 Tamara Calero DO Work Phone: [facility] 02-12-2024 15:53-0500 Body temperature 97.3 [degF] Tamara Calero DO Work Phone: [facility] 02-12-2024 15:53-0500 Body weight 109.76 kg Tamara Calero DO Work Phone: [facility] 02-12-2024 15:53-0500 Heart rate 85 /min Tamara Calero DO Work Phone: [facility] 02-12-2024 15:53-0500 Respiratory rate 18 /min Tamara Calero DO Work Phone: [facility] 02-12-2024 15:53-0500 SaO2% (BldA) [Mass fraction] 96 % Tamara Calero DO Work Phone: [facility] 11-30-2023 08:27-0400 Body height 167.6 cm Stephanie Webster MD Work Phone: [facility] 11-30-2023 08:27-0400 Body mass index (BMI) [Ratio] 39.54 kg/m2 Stephanie Webster MD Work Phone: [facility] [employer] [facility] 11-30-2023 08:27-0400 Body temperature 97.5 [degF] Stephanie Webster MD Work Phone: [facility] [employer] [facility] 11-30-2023 08:27-0400 Body weight 111.13 kg Stephanie Webster MD Work Phone: [facility] 11-30-2023 08:27-0400 Diastolic blood pressure 78 mm[Hg] Stephanie Webster MD Work Phone: [facility] 11-30-2023 08:27-0400 Heart rate 92 /min Stephanie Webster MD Work Phone: [facility] 11-30-2023 08:27-0400 Respiratory rate 18 /min Stephanie Webster MD Work Phone: [facility] 11-30-2023 08:27-0400 SaO2% (BldA) [Mass fraction] 97 % Stephanie Webster MD Work Phone: [facility] 11-30-2023 08:27-0400 Systolic blood pressure 130 mm[Hg] Stephanie Webster MD Work Phone: [facility] 11-14-2023 07:30-0400 Body temperature 97.7 [degF] MEDICAL CLAIMS ANALYST-C Josette Tequila Work Phone: [facility] 11-14-2023 07:30-0400 Diastolic blood pressure 85 mm[Hg] MEDICAL CLAIMS ANALYST-C Josette Tequila Work Phone: [facility] 11-14-2023 07:30-0400 Heart rate 85 /min MEDICAL CLAIMS ANALYST-C Josette Tequila Work Phone: [facility] 11-14-2023 07:30-0400 Respiratory rate 18 /min MEDICAL CLAIMS ANALYST-C Josette Tequila Work Phone: [facility] 11-14-2023 07:30-0400 SaO2% (BldA) [Mass fraction] 95 % MEDICAL CLAIMS ANALYST-C Josette Tequila Work Phone: [facility] 11-14-2023 07:30-0400 Systolic blood pressure 122 mm[Hg] MEDICAL CLAIMS ANALYST-C Josette Tequila Work Phone: [facility] 11-13-2023 08:42-0400 Body weight 108.5 kg MEDICAL CLAIMS ANALYST-C Josette Tequila Work Phone: [facility] 11-09-2023 13:07-0400 Body height 167.64 cm MEDICAL CLAIMS ANALYST-C Josette Tequila Work Phone: [facility] 11-08-2023 23:36-0400 Body temperature 98.1 [degF] MEDICAL CLAIMS ANALYST-C Josette Tequila Work Phone: [facility] 11-08-2023 23:36-0400 Diastolic blood pressure 78 mm[Hg] MEDICAL CLAIMS ANALYST-C Josette Tequila Work Phone: [facility] 11-08-2023 23:36-0400 Heart rate 75 /min MEDICAL CLAIMS ANALYST-C Josette Tequila Work Phone: [facility] 11-08-2023 23:36-0400 Respiratory rate 20 /min MEDICAL CLAIMS ANALYST-C Josette Tequila Work Phone: [facility] 11-08-2023 23:36-0400 SaO2% (BldA) [Mass fraction] 98 % MEDICAL CLAIMS ANALYST-C Josette Tequila Work Phone: [facility] 11-08-2023 23:36-0400 Systolic blood pressure 148 mm[Hg] MEDICAL CLAIMS ANALYST-C Josette Tequila Work Phone: [facility] 11-08-2023 19:54-0400 Body height 167.64 cm MEDICAL CLAIMS ANALYST-C Josette Tequila Work Phone: [facility] 11-08-2023 19:54-0400 Body weight 108.5 kg MEDICAL CLAIMS ANALYST-C Josette Tequila Work Phone: [facility] 09-28-2023 13:36-0400 Body height 167.64 cm MEDICAL CLAIMS ANALYST-C Josette Mandel Work Phone: [facility] 09-28-2023 13:36-0400 Body mass index (BMI) [Ratio] 36.8 kg/m2 MEDICAL CLAIMS ANALYST-C Josette Mandel Work Phone: [facility] 09-28-2023 13:36-0400 Body temperature 98 [degF] MEDICAL CLAIMS ANALYST-C Josette Mandel Work Phone: [facility] 09-28-2023 13:36-0400 Body weight 103.41 kg MEDICAL CLAIMS ANALYST-C Josette Mandel Work Phone: [facility] 09-28-2023 13:36-0400 Diastolic blood pressure 67 mm[Hg] MEDICAL CLAIMS ANALYST-C Josette Mandel Work Phone: [facility] 09-28-2023 13:36-0400 Heart rate 104 /min MEDICAL CLAIMS ANALYST-C Josette Mandel Work Phone: [facility] 09-28-2023 13:36-0400 Respiratory rate 18 /min MEDICAL CLAIMS ANALYST-C Josette Mandel Work Phone: [facility] 09-28-2023 13:36-0400 SaO2% (BldA) [Mass fraction] 95 % MEDICAL CLAIMS ANALYST-C Josette Mandel Work Phone: [facility] 09-28-2023 13:36-0400 Systolic blood pressure 107 mm[Hg] MEDICAL CLAIMS ANALYST-C Josette Mandel Work Phone: [facility] 08-31-2023 14:36-0400 Body height 167.64 cm MEDICAL CLAIMS ANALYST-C Josette Mandel Work Phone: [facility] 08-31-2023 14:36-0400 Body mass index (BMI) [Ratio] 37.4 kg/m2 MEDICAL CLAIMS ANALYST-C Josette Mandel Work Phone: [facility] 08-31-2023 14:36-0400 Body temperature 97.8 [degF] MEDICAL CLAIMS ANALYST-C Josette Mandel Work Phone: [facility] 08-31-2023 14:36-0400 Body weight 105.23 kg MEDICAL CLAIMS ANALYST-C Josette Mandel Work Phone: [facility] 08-31-2023 14:36-0400 Diastolic blood pressure 62 mm[Hg] MEDICAL CLAIMS ANALYST-C Josette Mandel Work Phone: [facility] 08-31-2023 14:36-0400 Heart rate 105 /min MEDICAL CLAIMS ANALYST-C Josette Mandel Work Phone: [facility] 08-31-2023 14:36-0400 Respiratory rate 18 /min MEDICAL CLAIMS ANALYST-C Josette Mandel Work Phone: [facility] 08-31-2023 14:36-0400 SaO2% (BldA) [Mass fraction] 95 % MEDICAL CLAIMS ANALYST-C Josette Mandel Work Phone: [facility] 08-31-2023 14:36-0400 Systolic blood pressure 111 mm[Hg] MEDICAL CLAIMS ANALYST-C Josette Manedl Work Phone: [facility] 08-31-2023 08:43-0400 Diastolic blood pressure 66 mm[Hg] Stephanie Webster MD Work Phone: [facility] 08-31-2023 08:43-0400 Systolic blood pressure 106 mm[Hg] Stephanie Webster MD Work Phone: [facility] 08-31-2023 08:35-0400 Body height 167.6 cm Stephanie Webster MD Work Phone: [facility] 08-31-2023 08:35-0400 Body mass index (BMI) [Ratio] 36.96 kg/m2 Stephanie Webster MD Work Phone: [facility] 08-31-2023 08:35-0400 Body weight 103.87 kg Stephanie Webster MD Work Phone: [facility] 08-31-2023 08:35-0400 Heart rate 111 /min Stephanie Webster MD Work Phone: [facility] 08-28-2023 12:39-0400 Body height 167.64 cm DO Posada Brananthonycki Work Phone: [facility] 08-28-2023 12:39-0400 Body temperature 98.2 [degF] DO Tamara Brananthonycki Work Phone: [facility] 08-28-2023 12:39-0400 Body weight 103.3 kg DO Tamara Brananthonycki Work Phone: [facility] 08-28-2023 12:39-0400 Diastolic blood pressure 83 mm[Hg] DO Tamara Brananthonycki Work Phone: [facility] 08-28-2023 12:39-0400 Heart rate 99 /min DO Tamara Kelleycki Work Phone: [facility] 08-28-2023 12:39-0400 Respiratory rate 20 /min DO Tamara Kelleycki Work Phone: [facility] 08-28-2023 12:39-0400 SaO2% (BldA) [Mass fraction] 97 % DO Tamara Kelleycki Work Phone: [facility] 08-28-2023 12:39-0400 Systolic blood pressure 126 mm[Hg] DO Tamara Kelleycki Work Phone: [facility] 08-21-2023 17:24-0400 Body height 170.18 cm DO Tamaraar Kelleycki Work Phone: [facility] 08-21-2023 17:24-0400 Body mass index (BMI) [Ratio] 36.1 kg/m2 DO Tamara Brananthonycki Work Phone: [facility] 08-21-2023 17:24-0400 Body temperature 97.8 [degF] DO Tamara Braniecki Work Phone: [facility] 08-21-2023 17:24-0400 Body weight 104.49 kg DO Tamara Brananthonycki Work Phone: [facility] 08-21-2023 17:24-0400 Diastolic blood pressure 67 mm[Hg] DO Tamara Calero Work Phone: [facility] 08-21-2023 17:24-0400 Heart rate 80 /min DO Tamara Calero Work Phone: [facility] 08-21-2023 17:24-0400 Respiratory rate 18 /min DO Tamara Calero Work Phone: [facility] 08-21-2023 17:24-0400 SaO2% (BldA) [Mass fraction] 94 % DO Tamara Calero Work Phone: [facility] 08-21-2023 17:24-0400 Systolic blood pressure 101 mm[Hg] DO Tamara Calero Work Phone: [facility] 07-03-2023 10:45-0400 Body mass index (BMI) [Ratio] 37.22 kg/m2 Halina Leighley RADIO RECORDER-CNM Work Phone: [facility] 07-03-2023 10:45-0400 Body weight 104.6 kg Halina Sholey RADIO RECORDER-CNM Work Phone: [facility] 07-03-2023 10:45-0400 Diastolic blood pressure 78 mm[Hg] Halina Leighley RADIO RECORDER-CNM Work Phone: [facility] 07-03-2023 10:45-0400 Systolic blood pressure 124 mm[Hg] Halina Sholey RADIO RECORDER-CNM Work Phone: [facility] [employer] [facility] 05-18-2023 17:14-0400 Body height 167.6 cm Stephanie Webster MD Work Phone: [facility] 05-18-2023 17:14-0400 Body mass index (BMI) [Ratio] 35.67 kg/m2 Stephanie Webster MD Work Phone: [facility] 05-18-2023 17:14-0400 Body weight 100.25 kg Stephanie Webster MD Work Phone: [facility] 05-18-2023 17:14-0400 Diastolic blood pressure 70 mm[Hg] Stephanie Webster MD Work Phone: [facility] 05-18-2023 17:14-0400 Systolic blood pressure 130 mm[Hg] Stephanie Webster MD Work Phone: [facility] 04-24-2023 15:29-0500 Body height 170.18 cm DO Tamara Kelleycki Work Phone: [facility] 04-24-2023 15:29-0500 Body mass index (BMI) [Ratio] 36.1 kg/m2 DO Tamara Kelleycki Work Phone: [facility] 04-24-2023 15:29-0500 Body weight 104.77 kg DO Tamara Kelleycki Work Phone: [facility] 04-24-2023 15:29-0500 Diastolic blood pressure 80 mm[Hg] DO Tamara Warrencki Work Phone: [facility] 04-24-2023 15:29-0500 Heart rate 84 /min DO Tamara Kelleycki Work Phone: [facility] 04-24-2023 15:29-0500 Respiratory rate 14 /min DO Tamara Warrencki Work Phone: [facility] 04-24-2023 15:29-0500 SaO2% (BldA) [Mass fraction] 96 % DO Tamara Brananthonycki Work Phone: [facility] 04-24-2023 15:29-0500 Systolic blood pressure 123 mm[Hg] DO Tamara Brananthonycki Work Phone: [facility] 04-15-2023 10:20-0500 Body height 170.18 cm Priyanka Lemon Other [employer] Other 04-15-2023 10:20-0500 Body mass index (BMI) [Ratio] 36.33 kg/m2 Priyanka Lemon Other [employer] Other 04-15-2023 10:20-0500 Body temperature 98.5 [degF] Priyanka Lemon Other [employer] Other 04-15-2023 10:20-0500 Body weight 105.24 kg Priyanka Lemon Other [employer] Other 04-15-2023 10:20-0500 Diastolic blood pressure 102 mm[Hg] Priyanka Lemon Other [employer] Other 04-15-2023 10:20-0500 Respiratory rate 20 /min Priyanka Lemon Other [employer] Other 04-15-2023 10:20-0500 Systolic blood pressure 125 mm[Hg] Priyanka Lemon Other [employer] Other 02-24-2023 10:00-0500 Body height 170.18 cm Tamara Calero Other [facility] 02-24-2023 10:00-0500 Body mass index (BMI) [Ratio] 35.86 kg/m2 Tamara Calero Other [employer] Other 02-24-2023 10:00-0500 Body weight 103.87 kg Tamara Calero Other [facility] 02-24-2023 10:00-0500 Diastolic blood pressure 77 mm[Hg] Tamara Calero Other [facility] 02-24-2023 10:00-0500 Respiratory rate 20 /min Tamara Calero Other [employer] Other 02-24-2023 10:00-0500 Systolic blood pressure 113 mm[Hg] Tamara Calero Other [facility] 12-20-2022 12:15-0400 Body height 170.18 cm Priyanka Lemon Other [employer] Other 12-20-2022 12:15-0400 Body mass index (BMI) [Ratio] 35.36 kg/m2 Priyanka Lemon Other [employer] Other 12-20-2022 12:15-0400 Body temperature 99.1 [degF] Priyanka Lemon Other [employer] Other 12-20-2022 12:15-0400 Body weight 102.42 kg Priyanka Lemon Other [employer] Other 12-20-2022 12:15-0400 Diastolic blood pressure 88 mm[Hg] Priyanka Lemon Other [employer] Other 12-20-2022 12:15-0400 Respiratory rate 18 /min Priyanka Lemon Other [employer] Other 12-20-2022 12:15-0400 SaO2% (BldA) [Mass fraction] 96 % Priyanka Lemon Other [employer] Other 12-20-2022 12:15-0400 Systolic blood pressure 133 mm[Hg] Priyanka Lemon Other [employer] Other 11-22-2022 14:30-0400 Body height 170.18 cm Tamara Calero Other [employer] Other 11-22-2022 14:30-0400 Body mass index (BMI) [Ratio] 35.86 kg/m2 Tamara Calero Other [employer] Other 11-22-2022 14:30-0400 Body weight 103.87 kg Tamara Calero Other [employer] Other 11-22-2022 14:30-0400 Diastolic blood pressure 74 mm[Hg] Tamara Calero Other [employer] Other 11-22-2022 14:30-0400 Respiratory rate 18 /min Tamara Calero Other [employer] Other 11-22-2022 14:30-0400 SaO2% (BldA) [Mass fraction] 95 % Tamara Calero Other [employer] Other 11-22-2022 14:30-0400 Systolic blood pressure 114 mm[Hg] Tamara Calero Other [employer] Other 08-24-2022 14:00-0400 Body height 170.18 cm Tamara Calero Other [employer] Other 08-24-2022 14:00-0400 Body mass index (BMI) [Ratio] 35.39 kg/m2 Tamara Calero Other [employer] Other 08-24-2022 14:00-0400 Body temperature 99.2 [degF] Tamara Calero Other [employer] Other 08-24-2022 14:00-0400 Body weight 102.51 kg Tamara Calero Other [employer] Other 08-24-2022 14:00-0400 Diastolic blood pressure 74 mm[Hg] Tamara Calero Other [employer] Other 08-24-2022 14:00-0400 Respiratory rate 20 /min Tamara Calero Other [employer] Other 08-24-2022 14:00-0400 SaO2% (BldA) [Mass fraction] 94 % Tamara Calero Other [employer] Other 08-24-2022 14:00-0400 Systolic blood pressure 114 mm[Hg] Tamara Calero Other [employer] Other 05-24-2022 23:57-0400 Diastolic blood pressure 62 mm[Hg] DO Tamara Whitei Work Phone: [facility] 05-24-2022 23:57-0400 Heart rate 94 /min DO Tamara Kelleycki Work Phone: [facility] 05-24-2022 23:57-0400 Respiratory rate 16 /min DO Tamara Kelleycki Work Phone: [facility] 05-24-2022 23:57-0400 SaO2% (BldA) [Mass fraction] 97 % DO Tamara Brananthonycki Work Phone: [facility] 05-24-2022 23:57-0400 Systolic blood pressure 122 mm[Hg] DO Tamara Brananthonycki Work Phone: [facility] 05-24-2022 20:49-0400 Body height 167.64 cm DO Tamara Calero Work Phone: [facility] 05-24-2022 20:49-0400 Body temperature 98.8 [degF] DO Tamara Calero Work Phone: [facility] 05-24-2022 20:49-0400 Body weight 98.2 kg DO Tamara Calero Work Phone: [facility] 05-18-2022 17:00-0400 Body height 170.18 cm Tamara Calero Other [employer] [facility] [employer] Other 05-18-2022 17:00-0400 Body mass index (BMI) [Ratio] 33.67 kg/m2 Tamara Calero Other [employer] Other 05-18-2022 17:00-0400 Body weight 97.52 kg Tamara Calero Other [employer] Other 05-18-2022 17:00-0400 Diastolic blood pressure 82 mm[Hg] Tamara Calero Other [employer] Other 05-18-2022 17:00-0400 Respiratory rate 20 /min Tamara Calero Other [employer] Other 05-18-2022 17:00-0400 SaO2% (BldA) [Mass fraction] 97 % Tamara Calero Other [employer] Other 05-18-2022 17:00-0400 Systolic blood pressure 136 mm[Hg] Tamara Kelleyvargas Other [employer] Other 05-15-2022 11:38-0400 Body temperature 97.6 [degF] DO Tamara Kelleycki Work Phone: [facility] 05-15-2022 11:38-0400 Diastolic blood pressure 88 mm[Hg] DO Tamara Kelleycki Work Phone: [facility] 05-15-2022 11:38-0400 Heart rate 73 /min DO Tamara Kellyecki Work Phone: [facility] 05-15-2022 11:38-0400 SaO2% (BldA) [Mass fraction] 96 % DO Tamara Kelleycki Work Phone: [facility] 05-15-2022 11:38-0400 Systolic blood pressure 133 mm[Hg] DO Tamara Kelleycki Work Phone: [facility] 05-15-2022 07:46-0400 Respiratory rate 16 /min DO Tamara Kelleycki Work Phone: [facility] 05-11-2022 14:05-0500 Body height 167.64 cm DO Tamara Whitei Work Phone: [facility] 05-11-2022 00:58-0500 Body weight 94.34 kg DO Tamara Kelleycki Work Phone: [facility] 05-11-2022 00:00-0500 Diastolic blood pressure 82 mm[Hg] DO Tamara Kelleycki Work Phone: [facility] 05-11-2022 00:00-0500 Heart rate 74 /min DO Tamara Kelleycki Work Phone: [facility] 05-11-2022 00:00-0500 Respiratory rate 18 /min DO Tamara Brananthonycki Work Phone: [facility] 05-11-2022 00:00-0500 SaO2% (BldA) [Mass fraction] 96 % DO Tamara Braniecki Work Phone: [facility] 05-11-2022 00:00-0500 Systolic blood pressure 170 mm[Hg] DO Tamara Calero Work Phone: [facility] 05-10-2022 21:11-0500 Body height 167.64 cm DO Tamara Calero Work Phone: [facility] 05-10-2022 21:11-0500 Body temperature 98.5 [degF] DO Tamara Calero Work Phone: [facility] 05-10-2022 21:11-0500 Body weight 94.4 kg DO Tamara Calero Work Phone: [facility] 08-20-2021 12:30-0400 Body height 170.18 cm Tamara Calero Other [facility] [employer] Other 08-20-2021 12:30-0400 Body mass index (BMI) [Ratio] 30.07 kg/m2 Tamara Calero Other [employer] Other 08-20-2021 12:30-0400 Body temperature 98.2 [degF] Tamara Calero Other [employer] Other 08-20-2021 12:30-0400 Body weight 87.09 kg Tamara Calero Other [employer] Other 08-20-2021 12:30-0400 Diastolic blood pressure 72 mm[Hg] Tamara Calero Other [employer] Other 08-20-2021 12:30-0400 Respiratory rate 18 /min Tamara Calero Other [employer] Other 08-20-2021 12:30-0400 SaO2% (BldA) [Mass fraction] 99 % Tamara Calero Other [employer] [facility] [employer] Other 08-20-2021 12:30-0400 Systolic blood pressure 118 mm[Hg] Tamara Calero Other [employer] Other 08-10-2021 14:48-0400 Body height 167.6 cm [facility] 08-10-2021 14:48-0400 Body mass index (BMI) [Ratio] 32.77 kg/m2 [facility] 08-10-2021 14:48-0400 Body temperature 97.7 [degF] [facility] 08-10-2021 14:48-0400 Body weight 92.08 kg [facility] 08-10-2021 14:48-0400 Diastolic blood pressure 62 mm[Hg] [facility] 08-10-2021 14:48-0400 Heart rate 81 /min [facility] 08-10-2021 14:48-0400 Respiratory rate 16 /min [facility] 08-10-2021 14:48-0400 SaO2% (BldA) [Mass fraction] 100 % [facility] 08-10-2021 14:48-0400 Systolic blood pressure 138 mm[Hg] [facility] 08-04-2021 05:03-0400 Body temperature 98.49 [degF] Dennis Sarmiento MD Work Phone: [facility] 08-04-2021 05:03-0400 Diastolic blood pressure 48 mm[Hg] Dennis Sarmiento MD Work Phone: [facility] 08-04-2021 05:03-0400 Heart rate 70 /min Dennis Sarmiento MD Work Phone: [facility] 08-04-2021 05:03-0400 Respiratory rate 16 /min Dennis Sarmiento MD Work Phone: [facility] 08-04-2021 05:03-0400 SaO2% (BldA) [Mass fraction] 97 % Dennis Sarmiento MD Work Phone: [facility] 08-04-2021 05:03-0400 Systolic blood pressure 110 mm[Hg] Dennis Sarmiento MD Work Phone: [facility] 07-31-2021 02:14-0400 Body height 177.8 cm Dennis Sarmiento MD Work Phone: [employer] 07-31-2021 02:14-0400 Body mass index (BMI) [Ratio] 30.42 kg/m2 Dennis Sarmiento MD Work Phone: [employer] [facility] [facility] 07-31-2021 02:14-0400 Body weight 96.16 kg Dennis Sarmiento MD Work Phone: [facility] 07-31-2021 01:15-0400 SaO2% (BldA) [Mass fraction] 97.8 % Dennis Sarmiento MD Work Phone: [facility] 07-30-2021 20:20-0400 SaO2% (BldA) [Mass fraction] 98.6 % Dennis Sarmiento MD Work Phone: [facility] 07-30-2021 17:53-0400 SaO2% (BldA) [Mass fraction] 98.5 % Dennis Sarmiento MD Work Phone: [facility] 07-30-2021 17:00-0400 SaO2% (BldA) [Mass fraction] 98.1 % Dennis Sarmiento MD Work Phone: [employer] [facility] 07-15-2021 12:58-0400 Body height 179.1 cm MarcellaKrave-NN-Ininal Work Phone: [employer] 07-15-2021 12:58-0400 Body mass index (BMI) [Ratio] 29.99 kg/m2 MarcellaRed Aril RAD[employer] Work Phone: [email or web address] 07-15-2021 12:58-0400 Body temperature 97 [degF] Marcella HOGAN Work Phone: [employer] 07-15-2021 12:58-0400 Body weight 96.16 kg Marcella Luevano APRN-WIRE MILL OPERATOR Work Phone: [employer] 07-15-2021 12:58-0400 Diastolic blood pressure 62 mm[Hg] Marcella Luevano APRN-WIRE MILL OPERATOR Work Phone: [employer] 07-15-2021 12:58-0400 Heart rate 75 /min Marcella Luevano APRN-OSCAR Work Phone: [email or web address] 07-15-2021 12:58-0400 Respiratory rate 16 /min Marcella Luevano APRN-WIRE MILL OPERATOR Work Phone: [email or web address] 07-15-2021 12:58-0400 SaO2% (BldA) [Mass fraction] 96 % Marcella Luevano APRN-OSCAR Work Phone: [email or web address] 07-15-2021 12:58-0400 Systolic blood pressure 117 mm[Hg] Marcella Luevano APRN-WIRE MILL OPERATOR Work Phone: [email or web address] 06-16-2021 11:35-0400 Diastolic blood pressure 77 mm[Hg] Leobardo Barry MD Work Phone: [employer] 06-16-2021 11:35-0400 Heart rate 73 /min Leobardo Barry MD Work Phone: [employer] 06-16-2021 11:35-0400 Respiratory rate 12 /min Leobardo Barry MD Work Phone: [email or web address] 06-16-2021 11:35-0400 SaO2% (BldA) [Mass fraction] 99 % Leobardo Barry MD Work Phone: [email or web address] 06-16-2021 11:35-0400 Systolic blood pressure 117 mm[Hg] Leobardo Barry MD Work Phone: [email or web address] 06-16-2021 11:05-0400 Body temperature 97.2 [degF] Leobardo Barry MD Work Phone: [email or web address] 06-11-2021 14:04-0400 Body height 168.9 cm Leigh Annxander Murphyes RADIO RECORDER-WIRE MILL OPERATOR Work Phone: [email or web address] 06-11-2021 14:04-0400 Body mass index (BMI) [Ratio] 33.39 kg/m2 Leigh Ann Teagan RADIO RECORDER-WIRE MILL OPERATOR Work Phone: [email or web address] 06-11-2021 14:04-0400 Body weight 95.25 kg Leigh Annxander Murphyes RADIO RECORDER-WIRE MILL OPERATOR Work Phone: [email or web address] 06-07-2021 11:45-0400 Body height 170.18 cm Tamara Calero Other [employer] Other 06-07-2021 11:45-0400 Body mass index (BMI) [Ratio] 32.57 kg/m2 Tamaraar Calero Other [employer] Other 06-07-2021 11:45-0400 Body weight 94.35 kg Tamara Calero Other [employer] Other 06-07-2021 11:45-0400 Diastolic blood pressure 69 mm[Hg] Tamara Calero Other [employer] Other 06-07-2021 11:45-0400 Respiratory rate 18 /min Tamara Calero Other [employer] Other 06-07-2021 11:45-0400 SaO2% (BldA) [Mass fraction] 98 % Tamara Calero Other [employer] Other 06-07-2021 11:45-0400 Systolic blood pressure 113 mm[Hg] Tamara Calero Other [facility] [employer] Other Encounters Encounter Date Encounter Type Care Provider Facility Start: 10-11-2024 ambulatory Vivek Charles acility:[facility] Start: 08-10-2024 End: 08-10-2024 Letter encounter Dennis Sarmiento MD Work Phone: [facility] Start: 08-06-2024 End: 08-06-2024 ambulatory [facility] Start: 07-06-2024 End: 07-06-2024 Emergency department patient visit Josette Mandel MEDICAL CLAIMS ANALYST-C Work Phone: [facility] Work Phone: Start: 06-26-2024 Registered Recurring Josette Alejandro amhay MEDICAL CLAIMS ANALYST-C Work Phone: [facility] Start: 06-25-2024 End: 06-25-2024 ambulatory Josette Mandel MEDICAL CLAIMS ANALYST-C Work Phone: [facility] Work Phone: Start: 06-25-2024 End: 06-25-2024 Patient encounter procedure Josette Mandel MEDICAL CLAIMS ANALYST-C Work Phone: [facility] Work Phone: Start: 06-19-2024 End: 06-19-2024 Refill Stephanie Webster MD Work Phone: [facility] Start: 06-19-2024 Registered Recurring Josette Alejandro amer MEDICAL CLAIMS ANALYST-C Work Phone: [facility] Start: 06-12-2024 Non-patient / Non-visit Stanford Calero DO Work Phone: [facility] Work Phone: Start: 06-11-2024 End: 06-14-2024 Evaluation and management of inpatient Tamara Calero DO Work Phone: [address] Work Phone: Start: 06-11-2024 End: 06-11-2024 ambulatory CORNELL RODRIGUEZ [facility] Start: 06-05-2024 Registered Recurring Tamara Tracey jose myesenia DO Work Phone: [facility] Start: 05-25-2024 Evaluation and management of inpatient V[facility] Start: 05-24-2024 Evaluation and management of inpatient [facility] Start: 05-24-2024 End: 05-25-2024 Evaluation and management of inpatient PAT CALLAHAN [facility] Start: 03-31-2024 End: 03-31-2024 ambulatory Tamara Calero DO Work Phone: [facility] Work Phone: Start: 03-31-2024 End: 03-31-2024 Patient encounter procedure Tamara Calero DO Work Phone: [facility] Work Phone: Start: 03-15-2024 End: 03-15-2024 ambulatory BENITO PRADO [facility] Start: 03-14-2024 Registered Recurring Tamara B jose myesenia DO Work Phone: [facility] Start: 03-07-2024 End: 03-07-2024 Office outpatient visit 25 minutes Stephanie Webster MD Work Phone: [facility] Comment on above: Cigarette smoker mot ivated to quit (Primary Dx); Severe claudication (CMS-HCC); 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) Start: 02-12-2024 End: 02-12-2024 Patient encounter procedure Tamara Calero DO Work Phone: [facility] Work Phone: Start: 11-30-2023 End: 11-30-2023 Office outpatient visit 25 minutes Stephanie Webster MD Work Phone: [facility] Comment on above: Cigarette smoker mot ivated to quit (Primary Dx); Claudication (CMS-HCC) Start: 11-09-2023 Non-patient / Non-visit MEDICAL CLAIMS ANALYST-C P jeni Tequila Work Phone: [facility] Work Phone: Start: 11-08-2023 End: 11-14-2023 Evaluation and management of inpatient MEDICAL CLAIMS ANALYST-C Josette Tequila Work Phone: [address] Work Phone: Start: 11-08-2023 Registered Recurring MEDICAL CLAIMS ANALYST-C Anika la Tequila Work Phone: [facility] Start: 10-25-2023 Registered Recurring MEDICAL CLAIMS ANALYST-C Anika la Tequila Work Phone: [facility] Start: 09-28-2023 End: 09-28-2023 ambulatory MEDICAL CLAIMS ANALYST-C Josette Racheal Tequila Work Phone: [facility] Work Phone: Start: 09-28-2023 End: 09-28-2023 Patient encounter procedure MEDICAL CLAIMS ANALYST-C Josette Tequila Work Phone: [facility] Physician [facility] Work Phone: Start: 09-27-2023 Registered Recurring MEDICAL CLAIMS ANALYST-C Anika la Tequila Work Phone: [facility] Start: 08-31-2023 End: 08-31-2023 ambulatory MEDICAL CLAIMS ANALYST-C Josette Racheal Tequila Work Phone: [facility] Work Phone: Start: 08-31-2023 End: 08-31-2023 Patient encounter procedure HANK-Tera Mandel Work Phone: [facility] Work Phone: Start: 08-31-2023 End: 08-31-2023 Office outpatient new 45 minutes Stephanie Webster MD Work Phone: [facility] Comment on above: Severe claudication (CMS-HCC) (Primary Dx); Cigarette smoker motivated to quit Start: 08-31-2023 End: 08-31-2023 ambulatory STEPHANIE WEBSTER [facility] Start: 08-30-2023 Registered Recurring FARNAZ Montana Work Phone: [facility] Start: 08-28-2023 End: 08-28-2023 Emergency department patient visit DO Tamara Christopheryesenia Work Phone: [facility] Work Phone: Start: 08-21-2023 End: 08-21-2023 ambulatory DO Tamara Calero Work Phone: [facility] Work Phone: Start: 08-21-2023 End: 08-21-2023 Patient encounter procedure DO Tamara Calero Work Phone: [facility] Phys[facility] Work Phone: Start: 08-03-2023 Registered Recurring DO Stanford cecelia Whiteyesenia Work Phone: [facility] Start: 07-03-2023 End: 07-03-2023 Patient encounter procedure Halina Lizarraga APRN-CNM Work Phone: [facility] [employer] [facility] Start: 07-03-2023 End: 07-03-2023 Periodic preventive med est patient 40-64yrs Halina Lizarraga APRN-CNM Work Phone: [facility]icians Obstetrics/Gynecology Comment on above: Well woman exam with routine gynecological exam (Primary Dx); Encounter for screening mammogram for malignant neoplasm of breast Start: 07-03-2023 End: 07-03-2023 ambulatory TAMARA CALERO [facility] Start: 07-03-2023 Encounter for gynecological examination (general) (routine) without abnormal findings [facility] Start: 05-18-2023 End: 05-18-2023 ambulatory STEPHANIE Charles [facility] Start: 05-18-2023 End: 05-18-2023 Office outpatient new 60 minutes Stephanie Webster MD Work Phone: [facility] Comment on above: Abnormal CT scan (Pr imary Dx); Cigarette smoker motivated to quit; Claudication ([facility]-HCC); Blue toe syndrome of left lower extremity ([facility]-HCC) Start: 04-24-2023 End: 04-24-2023 ambulatory DO Tamara Calero Work Phone: [facility] Work Phone: Start: 04-24-2023 End: 04-24-2023 Patient encounter procedure DO Tamara Calero Work Phone: [facility] Phys[facility] Work Phone: Start: 04-15-2023 End: 04-15-2023 ambulatory Priyanka Lemon Other [employer] Other Start: 04-15-2023 Office outpatient vi sit 15 minutes Priyanka Lemon [facility] Start: 02-24-2023 End: 02-24-2023 ambulatory Tamara Calero Other [employer] Other Start: 02-24-2023 Office outpatient vi sit 25 minutes Tamara Calero [facility] [place] Start: 02-24-2023 End: 02-24-2023 Patient encounter procedure DO Tamara Calero Work Phone: [facility] Work Phone: Start: 02-01-2023 Registered Recurring DO Stanford Calero Work Phone: [facility] Start: 12-20-2022 End: 12-20-2022 ambulatory Priyanka Lemon Other [employer] Other Start: 12-20-2022 Office outpatient vi sit 25 minutes Priyanka Lemon [facility] Start: 12-05-2022 End: 12-05-2022 ambulatory Tamara Kelleyjeannayesenia Other [employer] Other Start: 12-05-2022 Telephone encounter Taamra White i [employer] Start: 11-22-2022 End: 11-22-2022 ambulatory Tamara Pearsondalton Other [employer] Other Start: 11-22-2022 Office outpatient vi sit 25 minutes Tamara Pearsondalton [facility] Start: 11-14-2022 End: 11-14-2022 ambulatory Tamara Pearsondalton Other [employer] Other Start: 11-14-2022 Telephone encounter Tamara Pearsonarielle eysenia [facility] Start: 11-02-2022 End: 11-02-2022 ambulatory Tamara Kelleyjeannayesenia Other [employer] Other Start: 11-02-2022 Telephone encounter Tamara White i [facility] Start: 08-24-2022 End: 08-24-2022 ambulatory Tamara Kelleyvargas Other [employer] Other Start: 08-24-2022 Encounter for other specified special examinations Tamara Calero [facility] Start: 08-24-2022 Periodic preventive med est patient 40-64yrs Tamara Calero [facility] Start: 08-02-2022 Letter encounter Dennis godoy MD Work Phone: [facility] Start: 05-30-2022 End: 05-30-2022 ambulatory Tamara Calero Other [employer] Other Start: 05-30-2022 Telephone encounter Tamara White i [facility] Start: 05-24-2022 Evaluation and management of inpatient DO Tamara Calero Work Phone: [facility]-[address] [place] [address] Work Phone: Start: 05-24-2022 End: 05-24-2022 ambulatory Tamara Calero Other [employer] [facility] [employer] Other Start: 05-24-2022 Telephone encounter Tamara White i [facility] Start: 05-18-2022 End: 05-18-2022 ambulatory Tamara Calero Other [facility] [employer] Other Start: 05-18-2022 Office outpatient vi sit 25 minutes Tamara Calero [facility] Start: 05-11-2022 End: 05-11-2022 ambulatory Tamara Calero Other [employer] Other Start: 05-11-2022 Telephone encounter Tamara White i [facility] Start: 05-10-2022 End: 05-15-2022 Evaluation and management of inpatient DO Tamara Calero Work Phone: [facility] Work Phone: Start: 05-05-2022 Letter encounter Dennis godoy MD Work Phone: [facility] Start: 03-15-2022 End: 03-15-2022 ambulatory Tamara Calero Other [employer] Other Start: 03-15-2022 Office outpatient vi sit 15 minutes Tamara Calero [facility] Start: 03-13-2022 End: 03-13-[address] DOCTOR ELKINS Facility: Start: 02-14-2022 End: 02-14-2022 Telemedicine consultation with patient Dennis Sarmiento MD Work Phone: [facility] Oncology Surgical Comment on above: NO SHOW (Primary Dx) Start: 02-14-2022 ambulatory DENNIS SHEA [facility] Start: 02-01-2022 Letter encounter Dennis godoy MD Work Phone: [facility] Start: 11-15-2021 End: 11-15-2021 ambulatory Tamara Calero Other [employer] Other Start: 11-15-2021 Telephone encounter Tamara White i [facility] Start: 09-02-2021 ambulatory Nicole Garcia RN [facility] Oncology Surgical Start: 09-02-2021 Documentation procedure Nicole Garcia on RN [facility] Start: 08-24-2021 End: 08-25-2021 ambulatory SELF PATIENT Facility:[facility] Start: 08-20-2021 End: 08-20-2021 ambulatory Tamara Calero Other [employer] Other Start: 08-20-2021 Encounter for genera l adult medical examination without abnormal findings Tamara Calero [facility] Start: 08-20-2021 Periodic preventive med est patient 40-64yrs Tamara Calero [facility] Start: 08-16-2021 End: 08-16-2021 Telemedicine consultation with patient Dennis Sarmiento MD Work Phone: [facility] Oncology Surgical Comment on above: Liver cyst (Primary Dx) Start: 08-16-2021 ambulatory JOHAN SARAIYA Facility: [facility] Start: 08-10-2021 End: 08-10-2021 Office outpatient visit 25 minutes Blue Surgery Resident [facility] Surgery General Comment on above: Postoperative follow -up (Primary Dx); Body mass index (BMI) 32.0-32.9, adult Start: 08-02-2021 Letter encounter Debo garza RADIO RECORDER-WIRE MILL OPERATOR Work Phone: [facility] Start: 08-01-2021 Letter encounter Debo Louisa RADIO RECORDER-WIRE MILL OPERATOR Work Phone: [facility] Surgery General Start: 07-30-2021 End: 07-30-2021 Subsequent hospital visit by physician Dennis Sarmiento MD Work Phone: [facility] Radiology Comment on above: Arrived Start: 07-30-2021 Letter encounter Debo Jasso RADIO RECORDER-WIRE MILL OPERATOR Work Phone: [facility] Radiology Start: 07-30-2021 End: 08-04-2021 Evaluation and management of inpatient Dennis Sarmiento MD Work Phone: Inpatient 8A Comment on above: Liver cyst (Primary Dx); Cyst of gallbladder; Postoperative pain Start: 07-16-2021 Telephone encounter Leandra hernandez [facility] Work Phone: [facility] Management [facility] Comment on above: Anemia; Consult with specialist Start: 07-15-2021 End: 07-16-2021 Office outpatient new 45 minutes Marcella Luevano RADIO RECORDER-WIRE MILL OPERATOR Work Phone: [facility] Pre-Surgical Evaluation Comment on above: Preop testing (Prima ry Dx); Iron deficiency anemia, unspecified iron deficiency anemia type; Body mass index (BMI) 29.0-29.9, adult Start: 07-15-2021 End: 07-16-2021 Patient encounter status Marcella Luevano RADIO RECORDER-WIRE MILL OPERATOR Work Phone: [facility] Pre-Surgical Evaluation Start: 07-07-2021 Letter encounter Dennis nuñez MD Work Phone: [facility] Surgery General Start: 07-06-2021 Admission to [facility] Dennis Sarmiento MD Work Phone: [facility] Surgery General Start: 07-02-2021 End: 07-02-2021 ambulatory Tamara Pearsondalton Other [employer] Other Start: 07-02-2021 Telephone encounter Tamara Christopher patterson [facility] Start: 06-16-2021 End: 06-16-2021 Subsequent hospital visit by physician Leobardo Barry MD Work Phone: [facility] Comment on above: Bile duct obstructio n; 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 Start: 06-14-2021 End: 06-15-[address] DOCTOR ELKINS Facility:[facility] Start: 06-11-2021 End: 06-11-2021 Telephone encounter Leigh Ann HOGAN Work Phone: [facility] Pre Surgical Evaluation Comment on above: Arrived Start: 06-07-2021 End: 06-07-2021 ambulatory Tamara Calero Other [employer] Other Start: 06-07-2021 Office outpatient vi sit 25 minutes Tamara Calero [facility] Start: 04-16-2021 End: 04-22-2021 Evaluation and management of inpatient DR DOCTOR ELKINS Facility:[facility] Start: 03-19-2021 End: 03-19-[address] DOCTOR ELKINS Facility:[facility] Start: 03-11-2018 End: 03-11-2018 Emergency department patient visit [facility] Procedures Date Procedure Procedure Detail Performing Clinician Start: 06-11-2024 Urine culture Tamara Calero DO Work Phone: Start: 11-08-2023 Urine culture MEDICAL CLAIMS ANALYST-C Josette Mandel Work Phone: Start: 07-03-2023 Adult depression screening assessment Halina Lizarraga APRN-GERONIMO Work Phone: Start: 06-24-2022 Mammography Stephanie Webster [...] Phone: Start: 07-31-2021 Hepatic function panel Madeleine Kit Mauro Hooks MD Work Phone: Start: 07-31-2021 End: [...] Work Phone: Start: 07-30-2021 FFP Adrian Toledocooper RADIO RECORDER-PERFECT BINDER SETTER Work Phone: Start: 07-30-2021 PLASMA STATUS Adrian Bermudez RADIO RECORDER-PERFECT BINDER SETTER Work Phone: Start: 07-30-2021 RED BLOOD CELL COMPONENT Adrian lopez RADIO RECORDER-PERFECT BINDER SETTER Work Phone: Start: 07-30-2021 RED BLOOD CELL UNIT STATUS Adrian calle RADIO RECORDER-PERFECT BINDER SETTER Work Phone: Start: 07-30-2021 End: 07-30-2021 Assay of lactate Adrian Bermudez RADIO RECORDER-PERFECT BINDER SETTER Work Phone: Start: 07-30-2021 End: 07-30-2021 Blood gases any combination ph pco2 po2 co2 hco3 Adrian Bermudez RADIO RECORDER-PERFECT BINDER SETTER Work Phone: Start: 07-30-2021 End: 07-30-2021 Carboxyhemoglobin measurement Felix Toledocooper RADIO RECORDER-PERFECT BINDER SETTER Work Phone: Start: 07-30-2021 End: 07-30-2021 Transfusion of packed red blood cells Mahamedilya Bermudez RADIO RECORDER-PERFECT BINDER SETTER Work Phone: Start: 07-30-2021 Cul bact xcpt urine blood/stool aerobic isol Dennis Sarmiento MD Work Phone: Start: 07-30-2021 Cytology examination - general Dennis Sarmiento MD Work Phone: Start: 07-30-2021 RBC leukocytes reduced Adrian Salgado on RADIO RECORDER-PERFECT BINDER SETTER Work Phone: Start: 07-30-2021 RED BLOOD CELL UNIT STATUS Adrian calle RADIO RECORDER-PERFECT BINDER SETTER Work Phone: Start: 07-30-2021 End: 07-30-2021 EXPLORATION, COMMON BILE DUCT Dennis Waldron MD Work Phone: Start: 07-30-2021 End: 07-30-2021 LAPAROSCOPY, DIAGNOSTIC Dennis godoy MD Work Phone: Start: 07-30-2021 Urine test visual color cmprsn meths Dennis Sarmiento MD Work Phone: Start: 07-30-2021 Blood typing, ABO, Rho(D) and RBC antibody screening Marcella Luevano [facility] Work Phone: Start: 07-15-2021 Assay of ferritin Marcella Luevano [facility] Work Phone: Start: 06-16-2021 Ercp dx collection [...] Td Vaccines (2 - Td or Tdap) [facility] Start: 03-22-2029 Tetanus vaccination [facility] Start: 01-29-2028 Shingles (RZV) Vaccine (1 of 2) Shingles (RZV) Vaccine (1 of 2) [facility] Start: 02-08-2026 Lipid panel Cholesterol [facility] Start: 06-22-2025 Screening for malignant neoplasm of cervix Pap Smear [facility] Start: 03-07-2025 Adult BMI Screening Adult [facility] Screening [facility] Start: 03-07-2025 End: 03-07-2025 US.doppler Extremity arteries - bilateral for physiologic artery study Vas art doppler lwr bilat mult lev/PVR Vascular Ultrasound Routine Cigarette smoker motivated to quit Severe claudication (CMS-HCC) 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 Start: 08-30-2024 Adult BMI Screening Adult BMI Screening [facility] Start: 08-30-2024 Tobacco Screening Tobacco Screening [facility] Start: 07-02-2024 Adult BMI Follow Up Plan Adult BMI Follow Up Plan [facility] Start: 07-02-2024 Adult BMI Screening Adult BMI Screening [facility] Start: 07-02-2024 Depression Screening Depression Screening [facility] Start: 07-02-2024 Tobacco Screening Tobacco Screening [facility] Start: 06-14-2024 [facility] Start: 06-11-2024 Hospital admission [facility] Start: 06-11-2024 [facility] Start: 06-11-2024 Urine culture [facility] Start: 06-11-2024 Bacteria identified in Urine by Culture Urine Culture [facility] Start: 05-17-2024 Adult BMI Screening [facility]ening [facility] Start: 02-29-2024 End: 02-29-2024 Patient encounter procedure 02/29/2024 8:30 AM EST [facility] [address] [place] [phone] Stephanie Webster MD [address], [facility] [address] [place] [address] [facility] Start: 11-30-2023 End: 11-30-2023 Patient encounter procedure 11/30/2023 8:30 AM EDT Office Visit [facility] [address] [place] [address] Stephanie Webster MD [address], [facility] [address] [place] [address] [facility] Start: 11-14-2023 [facility] Start: 11-09-2023 Hospital admission [facility] Start: 11-08-2023 [facility] Start: 11-08-2023 Bacteria identified in Urine by Culture [facility] Start: 11-05-2023 COVID-19 Vaccine ( season) COVID-19 Vaccine ( season) [facility] Start: 11-05-2023 Influenza vaccination Influenza Vaccine [facility] [employer] Start: 08-31-2023 End: 08-31-2023 Patient encounter procedure 08/31/2023 9:00 AM EDT Office Visit [facility] [address] [place] [address] Stephanie Webster MD [address], [place] [address] [place] [address] [facility] Start: 07-21-2023 Tobacco Screening Tobacco Screening [employer] [facility] Start: 07-03-2023 End: 08-30-2024 DBT Breast - bilateral screening Mammography screening bilateral with CAD Imaging Routine Encounter for screening mammogram for malignant neoplasm of breast Expected: 07/03/2023, Expires: 08/30/2024 [employer] Work Phone: Comment on above: Expected: 07/03/2023, Expires: Start: 06-25-2023 Screening for malignant neoplasm of breast Mammogram [facility] Start: 06-23-2023 Adult BMI Follow Up Plan Adult BMI Follow Up Plan [facility] Start: 05-18-2023 End: 05-17-2024 US.doppler Extremity arteries - bilateral for physiologic artery study Vas art doppler lwr bilat mult lev/PVR Vascular Ultrasound Routine Abnormal CT scan Expected: 05/18/2023, Expires: 05/17/2024 [employer] Work Phone: Comment on above: Expected: 05/18/2023, Expires: Start: 2023 Screening for malignant neoplasm of colon [facility] Start: 11-04-2022 Influenza vaccination Influenza Vaccine [employer] [facility] [employer] Start: 08-03-2022 Basic metabolic 2000 panel - Serum or Plasma Basic Metabolic Panel [facility] Start: 08-03-2022 Creatinine measurement Basic Metabolic Panel [facility] Start: 08-02-2022 Basic metabolic 2000 panel - Serum or Plasma Basic Metabolic Panel [facility] Start: 08-01-2022 Basic metabolic 2000 panel - Serum or Plasma Basic Metabolic Panel [facility] Start: 07-31-2022 Basic metabolic 2000 panel - Serum or Plasma Basic Metabolic Panel [facility] Start: 05-25-2022 End: 05-25-2022 [facility] Start: 05-25-2022 Hospital admission [facility] Start: 05-15-2022 [facility] Start: 05-11-2022 [facility] Start: 05-11-2022 Hospital admission [facility] Start: 05-11-2022 [facility] Start: 05-10-2022 Bacteria identified in Urine by Culture Urine Culture [facility] Start: 04-28-2022 Basic metabolic 2000 panel - Serum or Plasma Basic Metabolic Panel [facility] Start: 04-23-2022 Hemoglobin A1c measurement Hemoglobin A1C [facility] Start: 02-14-2022 End: 02-14-2022 Telemedicine consultation with patient 02/14/2022 Telemedicine Oncology Surgery Dennis Sarmiento MD [address] [place] [id number] [facility] Oncology Surgical Start: 12-04-2021 Influenza vaccination Influenza Vaccine (#1) [facility] Start: 08-24-2021 End: 08-24-2021 Patient encounter procedure 08/24/2021 Office Visit General Surgery [facility] Surgery General Start: 08-16-2021 End: 08-16-2021 Evaluation and management of inpatient 08/16/2021 Telemedicine Oncology Surgery Dennis Sarmiento MD [address] [place] [id number] [facility] Oncology Surgical Start: 08-16-2021 End: 08-16-2021 Telemedicine consultation with patient 08/16/2021 Telemedicine Oncology Surgery Dennis Sarmiento MD [address] [place] [id number] [facility] Oncology Surgical Start: 08-10-2021 End: 08-10-2021 Patient encounter procedure 08/10/2021 Office Visit General Surgery [facility] Surgery General Start: 07-30-2021 End: 07-30-2021 Admission to same day surgery center 07/30/2021 Surgery General Surgery Dennis Sarmiento MD [address] [place] [id number] HEPATECTOMY, PARTIAL, LOBECTOMY [facility] Main OR Comment on [...] Hospital Encounter General Surgery Dennis Sarmiento MD [address] [place] [id number] [facility] Main [place] Start: 07-15-2021 End: 07-15-2021 Patient encounter procedure 07/15/2021 Office Visit Presurgical Evaluation Marcella Luevano, RADIO RECORDER-WIRE MILL OPERATOR [address] [place] [address] [place] [address] [facility] [place] Pre-Surgical Evaluation Start: 07-07-2021 End: 07-07-2021 Evaluation and management of inpatient 07/07/2021 Office Visit Internal Medicine Jennifer Khan MD [address] [place] [id number] [facility] [employer] Start: 06-22-2021 End: 06-22-2021 Patient encounter procedure 06/22/2021 Office Visit General Surgery Dennis Sarmiento MD [address] [place] [id number] [facility] Surgery General Start: 06-16-2021 End: 06-16-2021 Admission to same day surgery center 06/16/2021 Surgery Gastroenterology Leobardo Barry MD [address] [place] [address] [place] [address] ERCP, GENERAL ANESTHESIA [facility] Comment on above: ERCP, GENERAL ANESTHESIA Start: 06-16-2021 End: 06-16-2021 ERCP, GENERAL ANESTHESIA [facility] Start: 06-16-2021 Subsequent hospital visit by physician 06/16/2021 Hospital Encounter Gastroenterology Leobardo Baryr MD [address] [place] [address] [facility] Start: 05-31-2021 [facility] Start: 05-18-2020 Depression Screening [facility] Start: 2018 Screening for malignant neoplasm of breast [facility] Start: 1999 Screening for malignant neoplasm of cervix Pap Smear [facility] Start: 1997 Hepatitis A (HAV) Vaccine (optional start 19+ years) Hepatitis A (HAV) Vaccine (optional start 19+ years) [facility] Start: 1997 Hepatitis B vaccination Hepatitis B [...] 1978 COVID-19 Vaccine (#1) COVID-19 Vaccine (#1) [facility] Start: 1978 Screening for malignant neoplasm of colon Colonoscopy [facility] Start: 1978 Tobacco Counseling Tobacco Counseling [facility] [employer] Calculated LDL cholesterol level [facility] Cholesterol.total/Ch o lesterol in HDL [Mass Ratio] in Serum or Plasma [facility] Culture bacterial an y source anaerobic iso&id ANAEROBIC CULTURE, MISC Microbiology Routine Cyst of gallbladder Liver cyst 07/30/2021 4:19 PM EDT [facility] Culture tubercle/oth acid-fast bacilli any isol AFB CULTURE/SMEAR Microbiology Routine Cyst of gallbladder Liver cyst 07/30/2021 4:19 PM EDT [facility] [facility] ERCP, GENERAL ANESTHESIA ERCP, GENERAL ANESTHESIA Cyst [...] gallbladder Liver cyst [employer]IOPERATIVE [employer] Patient Education [facility] Work Phone: Patient referral [facility] Work Phone: End: 06-16-2021 Surgical pathology procedure SURGICAL GI ANATOMIC PATHOLOGY Anatomic Pathology Routine One time for 1 Occurrences starting 06/16/2021 until 06/16/2021 [employer] Work Phone: Comment on above: One time for 1 Occurrences starting 06/04 until 06/16/2021 Surgical pathology procedure [employer] Work Phone: Comment on above: Release Upon Ordering for 1 Occurrences starting 07/30/2021, 1 completed VLDL cholesterol measurement [facility] Immunizations Immunization Date Immunization Notes Care Provider Fa almita 04-23-2021 Hemoglobin A1C Leigh Ann Katherine es RADIO RECORDER[employer]WIRE MILL OPERATOR Work Phone: [facility] 03-22-2019 tetanus toxoid, reduced diphtheria toxoid, and acellular pertussis vaccine, adsorbed Leigh Ann Teagan RADIO RECORDER[employer]WIRE MILL OPERATOR Work Phone: [facility] 01-29-2019 influenza, injectable, quadrivalent, preservative free Leigh Ann Teagan RADIO RECORDER[employer]WIRE MILL OPERATOR Work Phone: [facility] 01-29-2019 influenza virus vaccine, unspecified formulation Dennis Sarmiento MD [facility] NEGATED: Highlighted row has not occurred!05-15-2019 measles, mumps and rubella virus vaccine Stephanie Webster MD Work Phone: [facility] Comment on above: Deferred: Other - Im munity NEGATED: Highlighted row has not occurred!05-15-2019 tetanus toxoid, reduced diphtheria toxoid, and acellular pertussis vaccine, adsorbed Stephanie Webster MD [facility] Comment on above: Deferred: Other - Gi stevie in office this 03/12/2019 NEGATED: Highlighted row has not occurred!05-15-2019 varicella virus vaccine Stephanie Webster MD [facility] Comment on above: Deferred: Other - Im munity NEGATED: Highlighted row has not occurred!05-14-2019 measles, mumps and rubella virus vaccine Stephanie Webster MD [facility] Phone[facility] Comment on above: Deferred: Other NEGATED: Highlighted row has not occurred!05-14-2019 varicella virus vaccine Stephanie Webster MD Work Phone: [facility] Comment on above: Deferred: Other Payers Date Payer Category Payer Self-pay [id number] 2022 Medicaid [id number] 2020 Medicaid [id number] 2016 Unknown [id number] 1978 Unknown [id number] 2.16.8 [id number] 1978 Unknown [id number] 2.16.84 0.1.003469.3.579.2.593 1978 Unknown [id number] 2.16.84 0.1.544774.3.579.2.593 1978 Unknown [id number] 2.16.84 0.1.232652.3.579.2.593 1978 Unknown [id number] 2.16.84 0.1.902036.3.579.2.593 1978 Unknown [id number] 2.16. 840.1.445268.3.579.2.732 1978 Unknown [id number] 2.16. 840.1.063093.3.579.2.732 1978 Unknown [id number] 2.16. 840.1.328512.3.579.2.732 1978 Unknown [id number] 2.16.8 40.1.314233.3.579.2.1286 1978 Unknown [id number] 2.16.8 40.1.600534.3.579.2.1286 1978 Unknown [id number] 2.16.8 40.1.706268.3.579.2.1286 1959 Unknown [id number] 2.1 6.840.1.739724.19 Unknown [id number] 2.16.8 40.1.821641.3.579.2.531 Unknown [id number] 2.16.8 40.1.059788.3.579.2.531 Unknown [id number] 2.16.8 40.1.709525.3.579.2.531 Unknown [id number] 2.16.8 40.1.413357.3.579.2.531 Social History Date Type Detail Facility Start: 04-02-2021 End: 06-11-2021 Tobacco smoking status TNIS Smokes tobacco daily [facility] Start: 03-06-1996 History of tobacco use Cigarette Smo ker [facility] Start: 04-02-2021 End: 08-03-2021 Cigarettes smoked current (pack per day) - Reported 0.75 [facility] Start: 04-02-2021 End: 06-11-2021 Tobacco use [...] Start: 05-31-2020 End: 08-03-2021 Sex Assigned At [facility] Start: 05-10-2022 End: 07-06-2024 Tobacco smoking status NHIS Smoker (finding) [facility] Start: 1980 Sex Assigned At Female F [facility] Do you belong to any clubs or organizations such as mosque groups, unions, fraternal or athletic groups, or school groups? No [facility] Are you now , , , , never or living with a partner? [facility] How hard is it for y ou to pay for the very basics like food, housing, medical care, and heating Not hard at all [facility] Do you feel stress - tense, restless, nervous, or anxious, or unable to sleep at night because your mind is troubled all the time - these days [OSQ] Not at all [facility] The thought of harmi ng myself has occurred to me Never [facility] Start: 07-20-2022 Tobacco Comment using nicorett e occasionally [facility] Start: 06-29-2022 Alcohol Comment former abuser [facility] Start: 10-09-2014 End: 04-02-2021 Sex Female (finding) [facility] Start: 06-11-2024 Tobacco smoking stat us NHIS Never smoked tobacco (finding) [facility] Start: 02-14-2022 Details of drug misu se behavior Misused drugs in past (finding) [facility] (I/We) worried wheth er (my/our) food would run out before (I/we) got money to buy more. Never true [facility] NEGATED: Highlighted row [facility] Goals Date Patient Goal Desired Activity /State Functional Status Date Assessment Result Facility 06-14-2024 Functional status Patient at Baseline [facility] Work Phone: 11-14-2023 Functional status Patient at Baseline [facility] Work Phone: 05-15-2022 Functional status Patient at Baseline [facility] Work Phone: Mental Status Date Assessment Result Facility 06-14-2024 Cognitive function Cognitive Sta tus Patient at Baseline [facility] Work Phone: 11-14-2023 Cognitive function Cognitive Sta tus Patient at Baseline [facility] Work Phone: 05-15-2022 Cognitive function Cognitive Sta tus Patient at Baseline [facility] Work Phone: Clinical Notes 06-07-2021 to 08-06-2024 Note Date & Type Note Facility 08-06-2024 Note ME Electrophysiology Consult Note [facility] Cardiology [facility] 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 Patient [...] file Physical Activity: Inactive (05/31/2020) Received from [facility], [facility] Exercise Vital Sign Days of Exercise per Week: 0 days Minutes of Exercise per Session: 0 min Stress: No Stress Concern Present (05/31/2020) Received from [facility], [facility] [place] [employer] - Occupational Stress Questionnaire Feeling of Stress : Not at all Social Connections: Socially Isolated (05/31/2020) Received from [facility], [facility] Social Connection and Isolation Panel [NHANES] Frequency of Communication with Friends and Family: Never Frequency of Social Gatherings with Friends and Family: Never Attends Christian Services: Never Active Member of Clubs or Organizations: No Attends Club or Organization Meetings: Never Marital Status: Intimate Partner Violence: Unknown (05/24/2024) Humiliation, Afraid, Rape, and Kick questionnaire Fear of Current or Ex-Partner: No Emotionally Abused: Not on file Physically Abused: Not on file Sexually Abused: Not on file Depression: At risk (07/03/2023) Received from [facility], [facility] PHQ-2 Total Score: 10 Housing Stability: Low Risk (05/24/2024) Housing Stability Vital Sign Unable to Pay for Housing in the Last Year: No Number of Times Moved in the Last Year: Not on file Homeless in the Last Year: No Utilities: Not At Risk (05/24/2024) [facility] Utilities Threatened with loss of utilities: [...] if needed. omeprazole (more content not included)... [facility] 06-14-2024 Hospital Discharge instructions Additional Instructions Important Contact Information You can call [facility] at [phone] any time day or night if you have emergent questions or question regarding discharge instructions. If at any time you are feeling an increase in your psychiatric symptoms, call your physician or behavioral healthcare provider. If any time you have thoughts of harming yourself or others contact one of the following: Call 88 (available 26/09) Crisis Text Line (available 26/09) text 4HOPE to [phone] [facility] Hope Line (available 8 a.m. Midnight) call [phone] ([phone]) [facility] Work Phone: 06-13-2024 Progress note Note Date/Time June 13, 2024 7:23am [facility] [address] [place] [address] Psychiatry Progress Note Signed Patient: Shahla Arias MR#: [id number] : 1980 Acct:[id number] Age/Sex: 44 / F Adm Date: 5 Loc: 1S Room: [address] [place] [address] Type : ADM IN Attending Dr: Vivek [...] signed by Vivek Antoine MD> 06/13/[address] [facility] Work Phone: 1(437) 692-141404-10-2025 [place] [address] Psychiatry Progress Note Signed Patient: Shahla Arias MR#: [id number] : 1980 Acct:[id number] Age/Sex: 44 / F Adm Date: 5 Loc: Room: [address] [place] [address] Type : ADM IN Attending Dr: Vivek [...] MD 5 0719 Signed By: 06/13/24 0723 [facility]04-09-2025 History and physical note Author Vivek washburn [facility] Note Date/Time June 12, 2024 1:52 pm [facility] [address] [place] [address] Psychiatry H&P Signed Patient: Shahla Arias MR#: [id number] : 1980 Acct:[id number] Age/Sex: 44 / F Adm Date: 5 Loc: 1S Room: [id number] Type: ADM IN Attending Dr: Vivek Antoine MD Copies to: MD Josette Arredondo, [facility]~ Date of Service: 06/12/2024 HPI History [...] negative unless noted below or in HPI [facility] Medical History Essential hypertension Depression with anxiety [...] of carpal tunnel release of both wrists [place] teeth removed History of cholecystectomy Family History [...] Appearance Clear Urine pH 5.5 Ur Specific [place] 1.025 Urine Protein 20 H Urine Glucose [...] daily Documented By: Vivek Antoine MD 5 [id number] Signed By: <Electronically signed by Vivek Antoine MD> 06/12/24 [facility] Work Phone: 1(370) 833-634604-09-2025 History and physical [place] [id number] Psychiatry H&P Signed Patient: Shahla Arias MR#: [id number] : 1980 Acct:[id number] Age/Sex: 44 / F Adm Date: 5 Loc: Room: [address] [place] [address] Type: ADM IN Attending Dr: Vivek Antoine [...] negative unless noted below or in HPI [facility] Medical History Essential hypertension Depression with anxiety [...] of carpal tunnel release of both wrists [place] teeth removed History of cholecystectomy Family History [...] Appearance Clear Urine pH 5.5 Ur Specific [place] 1.025 Urine Protein 20 H Urine Glucose [...] daily Documented By: Vivek Antoine MD 5 1258 Signed By: 06/12/24 1352 [facility]04-08-2025 Evaluation note* Diagnosis Onset Date Resolution Status Admit Date Major depression acute June 8:59pm Depression with anxiety resolved A pril 2024 8:59pm Suicidal ideation resolved June 112024 8:59pm Bronchitis with asthma, acute noneac tive June 25, 2024 2:40pm [facility] Work Phone: [phone]) 882-516904-08-2025 NoteUT Electrophysiology Consult Note [facility] Cardiology - [facility] Reason for visit: WPW HPI: [...] file Physical Activity: Inactive (05/31/2020) Received from [facility], [facility] Exercise Vital Sign Days of Exercise per Week: 0 days Minutes of Exercise per Session: 0 min Stress: No Stress Concern Present (05/31/2020) Received from [facility], [facility] [place] [employer] - Occupational Stress Questionnaire Feeling of Stress : Not at all Social Connections: Socially Isolated (05/31/2020) Received from [facility], [facility] Social Connection and Isolation Panel [NHANES] Frequency of Communication with Friends and Family: Never Frequency of Social Gatherings with Friends and Family: Never Attends Christian Services: Never Active Member of Clubs or Organizations: No Attends Club or Organization Meetings: Never Marital Status: Intimate Partner Violence: Unknown (05/24/2024) Humiliation, Afraid, Rape, and Kick questionnaire Fear of Current or Ex-Partner: No Emotionally Abused: Not on file Physically Abused: Not on file Sexually Abused: Not on file Depression: At risk (07/03/2023) Received from [facility], [facility] PHQ-2 Total Score: 10 Housing Stability: Low Risk (05/24/2024) Housing Stability Vital Sign Unable to Pay for Housing in the Last Year: No Number of Times Moved in the Last Year: Not on file Homeless in the Last Year: No Utilities: Not At Risk (05/24/2024) [facility] Utilities Threatened with loss of utilities: [...] tablet Take 10 (more content not included)... [facility]03-22-2025 NoteHospital Medicine Discharge Summary Final Discharge Diagnosis: NSTEMI, likely demand ischemia in setting of acute illness. Abnormal stress test with anterior reversible defect and TID. Pre-Excitation on EKG Peripheral artery disease, follows with vascular , on dual antiplatelet therapy. Normocytic anemia Primary hypertension Class II obesity Admission Diagnosis: NSTEMI (non-ST elevated myocardial infarction) (CMS/[facility]ER[facility]) [I21.4] Hospital course: 44-year-old female with past medical history significant for peripheral vascular disease on DAPT, uncontrolled hypertension, obesity who presented initially to [facility] due to nausea/vomiting and abdominal pain. Initial workup at [facility] was significant for elevated high-sensitivity troponin, stress test was ordered but the patient was not able to complete the stress test and the patient was transferred to [email or web address] to be evaluated by cardiology. Patient was [...] Center 06/11/2024 11:30 AM Cornell Rodriguez MD [facility] Your medication list CONTINUE taking these medications Instructions Last Dose Given Next Dose Due albuterol 90 mcg/actuation inhaler aspirin 81 mg EC tablet atorvastatin 40 mg tablet Commonly known as: Lipitor buPROPion XL 300 mg 24 hr tablet Commonly known as: Wellbutrin XL cholecalciferol 50 MCG (1999 [place]) tablet Commonly known as: Vitamin D-3 clopidogrel [...] was 38 minutes. Signed Shreyas Rodriguez MD [facility] Medicine 05/25/2024 10:33 AM CC: [facility]03-22-2025 Note Attestation signed by Vira [...] discharge. Vira Heath MD, ScM, MSc Cardiac Ophthalmologist Email: [email or web address] Cardiology Progress Note Subjective Subjective: Patient was [...] mg, oral, Daily, Cj Robles MD diphenhydrAMINE-AlumMg Yuxude-Romyfp-Kljpxljyt (MAGIC Mouthwash) suspension 10 mL, 10 mL, [...] abdominal tenderness. Musculoskeletal: Rig (more content not included)...[facility]03-21-2025 NotePatient: Shahla Arias Procedure Information Date/Time: 05/24/24 1534 Procedure: Coronary angiography Location: [facility] [[email or web address] CONTRACT [employer]ED [employer]PER[employer] 3 / [facility] (Cath) Providers: Silvestre Neumann MD Clinical information reviewed: Allergies Meds Problems Physical Exam Airway Mallampati: III Cardiovascular Rhythm: regular Rate: normal Dental Pulmonary Breath sounds clear to auscultation Abdominal Anesthesia Plan ASA 3 other (Moderate Sedation ) Anesthetic plan and risks discussed with patient. Use of blood products discussed with patient who consented to blood products. Additional Equipment [facility] Note- Note that patient had abdominal pain after eating a compelled meal and Evan. -Must consider biliary dyskinesia and also acute pancreatitis being that patient has had acute pancreatitis in the past.[facility] 05-24-2024 Note-Patient has positive test however she states that she is not -Patient states that she has tubal ligation -Repeat quantitative beta-hCG DVT prophylaxis using VTE protocols per [facility] GI protection Protonix Monitor labs and correct any abnormalities especially monitor renal function Try to avoid nephrotoxic agents Consult include cardiology and nephrology I discussed the plan of care with the patient and she is in agreement with the plan of care.[facility]03-21-2025 Note-Gentle hydration with normal saline at rate of 50 mL/h -Avoid nephrotoxic agents -Care must be taken to preserve renal function before, during and after catheterization -Need to consult with nephrology.[facility]03-21-2025 Note-Weight loss by virtue of diet and exerciseUnOhio [facility]03-21-2025 Note-Pantoprazole [facility]UnOhio [facility] 05-24-2024 Note-Proceed to catheterization however care must be taken because of patient's renal function. -May need to consult with nephrologyUnOhio [facility] 05-24-2024 Note-Patient's blood pressure is completely controlled this morning it was 100/65 -Will hold all antihypertensive medications for the momentUnOhio Valley [facility] Hospital03-21-2025 Note-Patient is currently chest pain-free -Commence patient on IV heparinization -Aspirin -Obtain lipid panel -Consult cardiology -Has supplemental oxygen and nitrates ready to use if patient has chest discomfort.[facility]03-21-2025 NoteHospital Medicine History and Physical 05/24/2024 7:55 AM THE HOSPITALIST TEAM PREFERS TO USE [email or web address] CHAT FOR NON-URGENT COMMUNICATION 7AM-7PM. IF I DO NOT RESPOND WITHIN 20 MINUTES OR URGENT MATTERS, PLEASE CALL THROUGH THE EMBROIDERY WORKER. FROM 7PM-7AM, PLEASE PAGE [phone](COVR). Chief Complaint No chief complaint on file. History of Present Illness Shahla Arias is an 44 y.o. female who came on transferred from [facility] with NSTEMI, abnormal EKG and abnormal stress test and to have a heart cath today. 44-year-old lady whose past medical history significant for the following; hypertension, obesity, depression and anxiety, history of peripheral disease. Patient was transferred from [facility] to [email or web address] for further treatment. She presented to the ER at [place] with abdominal pain, nausea and vomiting following a meal at [facility]. Pain also continued after she had a Evan. These symptoms began on 05/21/2024. At [facility] patient was investigated and was found to have abnormalities with BUN/creatinine as well as also with stress testing and abnormal EKGs. [facility] made contact with [place] cardiology and patient was transferred here for have catheterization today. When I saw her she was lying in bed woken up voiced no complaints. She denied any abdominal pain or chest pain, nausea or vomiting. Laboratory investigations that were done at [facility] showed a BUN of 29 and [...] hypertension, obesity anxiety and depression seen at [facility] diagnosed with NSTEMI and IAM. She is transferred here for for cardiac catheterization following abnormal stress test. Assessment & Plan NSTEMI (non-ST elevated myocardial infarction) ([facility]) -Patient is currently chest pain-free -Commence patient [...] beta-hCG DVT prophylaxis using (more content not included)...[facility]01-26-2025 Evaluation note* Diagnosis Onset Date Resolution Status Admit Date RSV (respiratory syncytial virus infection) acute March 31, 025 11:18am Major depression acute June 8:59pm Suicidal ideation acute June 112024 8:59pm [facility] Work Phone: 1([phone]) 871-602901-26-2025 Evaluation note* Diagnosis Onset Date Resolution Status Admit Date RSV (respiratory syncytial virus infection) acute March 31, 11:18am Depression with anxiety acute A pril 2024 8:59pm Major depression acute June 8:59pm Suicidal ideation acute June 112024 8:59pm [facility] Work Phone: 1([phone]) 809-698501-26-2025 Evaluation note* Diagnosis Onset Date Resolution Status Admit Date RSV (respiratory syncytial virus infection) acute March 31, 025 11:18am Major depression acute June 8:59pm Depression with anxiety resolved A pril 2024 8:59pm Suicidal ideation resolved June 112024 8:59pm [facility] Work Phone: 1(771) 789-777101-10-2025 NoteCardiology Clinic Note HPI: Shahla Arias is a 44 y.o. 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 She presents today for follow up. She was recently at [facility] for acute hypotension, IAM, and ECG [...] - Transthoracic echo (TTE) complete; Future WPW (Akbox-Bwophulfu-Vardg syndrome) - Treadmill Stress Myocardial Perfusion Imaging; [...] -Follow-up in cardiology clinic Benito Prado MD [facility] [place] (more content not included)...[facility] 03-07-2024 History of Present illness Narrative* Stephanie Webster MD - 03/07/2024 10:30 AM EST Images from the original note were not included. To: JOSETTE MANDEL, RADIO RECORDER-WIRE MILL OPERATOR HPI: Shahla Arias is a 44 y.o. [...] History: Past Medical History: Diagnosis Date Alcoholic ([facility]) Anxiety Arthritis Asthma Bipolar disorder ([facility]) Depression Fractures GERD (gastroesophageal reflux disease) HPV (human papilloma virus) infection Hyperlipidemia Hypertension Migraine Obesity Postoperative wound infection 05/22/2019 Past Surgical History: Past Surgical History: Procedure Laterality Date APPLICATION WOUND VAC N/A 05/22/2019 Performed by Boni Ogden MD at [facility] N/A 05/13/2019 Performed by Boni Ogden MD at [facility] OR Cardiac catheterization 07/02/2020 Performed by Va Coy MD at [facility] CARDIAC CATH LABS CARPAL TUNNEL RELEASE Bilateral CHOLECYSTECTOMY Coronary angiogram only N/A 07/02/2020 Performed by Va Coy MD at [facility] CARDIAC CATH LABS DEBRIDEMENT WOUND N/A 05/22/2019 Performed by Boni gOden MD at [facility] LAPAROSCOPIC SALPINGECTOMY Bilateral 07/20/2022 Performed by Sabina Leung DO at [facility] LIVER BIOPSY Social and Family [...] Resource Strain: Low Risk (08/03/2021) Received from [employer] Overall Financial Resource Strain (CARDIA) Difficulty of Paying Living Expenses: Not hard at all Food Insecurity: No Food Insecurity (03/07/2024) Hunger Screening Food Insecurity - Worry: Never True Food Insecurity - Inability: Never True Transportation Needs: No Transportation Needs (08/03/2021) Received from [employer] PRAPARE - Transportation Lack of Transportation (Medical): No Lack of Transportation (Non-Medical): No Physical Activity: Inactive (05/31/2020) Exercise Vital Sign Days of Exercise per Week: 0 days Minutes of Exercise per Session: 0 min Stress: No Stress Concern Present (05/31/2020) [place] [employer] - Occupational Stress Questionnaire Feeling of Stress : Not at all Social Connections: Socially Isolated (05/31/2020) Social Connection and Isolation Panel [NHANES] Frequency of Communication with Friends and Family: Never Frequency of Social Gatherings with Friends and Family: Never Attends Christian Services: Never Active Member of Clubs or [...] file Housing Instability: Unknown (08/03/2021) Received from [employer] Housing Stability Vital Sign Unable to Pay [...] Stephanie Webster MD, EMA, RPVI, FSVS, FACS [facility] [facility] This note was created with the assistance of a speech recognition program. While intending to generate a timely document that accurately reflects the content of the visit, no guarantee can be provided that every grammatical or spelling mistake has been or will be identified or corrected. Thank you for your understanding. documented in this encounterTriHealthCenTrak [id number] Instructions* Patient Instructions* Stephanie Webster MD - 03/07/2024 10:30 AM EST Are You Ready To Kick The Habit? Free Tobacco Cessation Resources [facility] Services [facility] provide all employees with free tobacco cessation services that include: Counseling to understand nicotine addiction Education about medications that can help you successfully quit Assistance with developing a plan to quit Call to set up an individual appointment or find out when group classes will be held: [facility]: [phone] [facility]: [phone] [facility]: [phone] [facility]: [phone] Quit Smoking Action Plan and Resources [facility] offers an eight-week, online smoking cessation plan to all [facility] employees, regardless of whether [place] is your medical insurance provider. Go to [email or web address] and click the Health Risk Assessment and Resources link to get started. In the Dlauu6Psnbor menu, click Action Plans instead of Health Risk Assessment to access the Quit Smoking Action Plan. Additional smoking cessation resources are also available to all [facility] employees on the Wujkh9Jljwfm web page at www.tocario/quitsmoking. [place] Tobacco Cessation Program If [place] is your medical insurance provider, there are more free resources available to you, including: No copays or deductibles on local tobacco cessation counseling services to help you quit Prescription assistance for tobacco cessation medications to help you quit For details about the tobacco cessation program available to [place] members, go to www.tocario (Search: Tobacco Cessation Program). [place] Tobacco Quit Line 8-235-UGFU-NOW ( ) is a toll-free, telephonic service that helps [place] residents quit smoking and using tobacco. It is staffed by experts who tailor a quit plan for you and provide you with advice. [place] Tobacco Quit Line 3-679-XQOY-NOW ( ) is a toll-free, telephonic service that helps [place] residents quit smoking and using tobacco. It is staffed by experts who tailor a quit plan for you and provide you with advice. Two weeks of nicotine replacement therapy may be provided at no charge, if needed. 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 Continue walking. documented in this encounterWVUMedicine [facility]ville [facility]01-02-2025 Evaluation + Plan note* Assessment & Plan Note - Stephanie Webster MD - 03/07/2024 10:16 AM EST Associated Problem(s): Cigarette smoker motivated to quit Counseled on smoking cessation for 3 minutes she is willing to quit [facility]01-02-2025 Evaluation + Plan note* Assessment & Plan Note - Stephanie Webster MD - 03/07/2024 10:16 AM ESTAssociated Problem(s): Severe claudication (CMS-HCC) Continue aspirin Plavix statin. Smoking cessation. Continue walking. [facility]09-26-2024 Evaluation + Plan note* Assessment & Plan Note - Stephanie Webster MD - 11/30/2023 9:01 AM EDTAssociated Problem(s): Cigarette smoker motivated to quit Counseled on smoking cessation at length [facility]09-26-2024 Evaluation + Plan note* Assessment & Plan Note - Stephanie Webster MD - 11/30/2023 9:01 AM EDTAssociated Problem(s): Claudication (CMS-HCC) Best medical therapy with aspirin and Plavix and statin. Supervised walking program. Smoking cessation. [facility]09-26-2024 Miscellaneous Notes* Assessment & Plan Note - Stephanie Webster MD - 11/30/2023 9:01 AM EDTAssociated Problem(s): Cigarette smoker motivated to quit Counseled on smoking cessation at length * Assessment & Plan Note - Stephanie Webster MD - 11/30/2023 9:01 AM EDT Associated Problem(s): Claudication (CMS-HCC) Best medical therapy with aspirin and Plavix and statin. Supervised walking program. Smoking cessation. documented in this encounterWVUMedicine [facility]09-26-2024 History of Present illness Narrative* Stephanie Webster MD - 11/30/2023 8:30 AM EDT Images from the original note were not included. To: JOSETTE MANDEL, RADIO RECORDER-WIRE MILL OPERATOR HPI: Shahla Arias is a 43 y.o. [...] History: Past Medical History: Diagnosis Date Alcoholic ([facility]) Anxiety Arthritis Asthma Bipolar disorder ([facility]) Depression Fractures GERD (gastroesophageal reflux disease) HPV (human papilloma virus) infection Hyperlipidemia Hypertension Migraine Obesity Postoperative wound infection 05/22/2019 Past Surgical History: Past Surgical History: Procedure Laterality Date APPLICATION WOUND VAC N/A 05/22/2019 Performed by Boni Ogden MD at [facility] N/A 05/13/2019 Performed by Boni Ogden MD at [facility] OR Cardiac catheterization 07/02/2020 Performed by Va Coy MD at [facility] CARDIAC CATH LABS CARPAL TUNNEL RELEASE Bilateral CHOLECYSTECTOMY Coronary angiogram only N/A 07/02/2020 Performed by Va Coy MD at [facility] CARDIAC CATH LABS DEBRIDEMENT WOUND N/A 05/22/2019 Performed by Boni Ogden MD at [facility] LAPAROSCOPIC SALPINGECTOMY Bilateral 07/20/2022 Performed by Sabina Leung DO at [facility] LIVER BIOPSY Social and Family History: [...] Resource Strain: Low Risk (08/03/2021) Received from [employer] Overall Financial Resource Strain (CARDIA) Difficulty of Paying Living Expenses: Not hard at all Food Insecurity: No Food Insecurity (11/30/2023) Hunger Screening Food Insecurity - Worry: Never True Food Insecurity - Inability: Never True Transportation Needs: No Transportation Needs (08/03/2021) Received from [employer] PRAPARE - Transportation Lack of Transportation (Medical): No Lack of Transportation (Non-Medical): No Physical Activity: Inactive (05/31/2020) Exercise Vital Sign Days of Exercise per Week: 0 days Minutes of Exercise per Session: 0 min Stress: No Stress Concern Present (05/31/2020) [place] [employer] - Occupational Stress Questionnaire Feeling of Stress : Not at all Social Connections: Socially Isolated (05/31/2020) Social Connection and Isolation Panel [NHANES] Frequency of Communication with Friends and Family: Never Frequency of Social Gatherings with Friends and Family: Never Attends Christian Services: Never Active Member of Clubs or Organizations: No Attends Club or Organization Meetings: Never Marital Status: Interpersonal Safety: Unknown (06/28/2023) Received from [facility] Fear of Current or Ex-Partner: Not on file Emotionally Abused: Not on file Physically Abused: Not on file Sexually Abused: Not on file Physically or Sexually Abused: Not on file Housing Instability: Unknown (08/03/2021) Received from [facility] Housing Stability Vital Sign Unable to Pay [...] Counseled on smoking cessation at length Claudication ([facility]) Current Assessment & Plan Best medical therapy with aspirin and Plavix and statin. Supervised walking program. Smoking cessation. Shahla was seen today for 3 month follow up no testing ordered and severe claudication ([facility]). Diagnoses and all orders for this visit: Cigarette smoker motivated to quit Claudication ([facility]) Stephanie Webster MD, EMA, RPVI, FSVS, FACS [facility] [employer] [facility] This note was created with the assistance of a speech recognition program. While intending to generate a timely document that accurately reflects the content of the visit, no guarantee can be provided that every grammatical or spelling mistake has been or will be identified or corrected. Thank you for your understanding. documented in this encounterWVUMedicine [facility]ville Hospital09-26-2024 Instructions* Patient Instructions* Stephanie Webster MD - 11/30/2023 8:30 AM EDT Are You Ready To Kick The Habit? Free Tobacco Cessation Resources [facility] Services [facility] provide all employees with free tobacco cessation services that include: Counseling to understand nicotine addiction Education about medications that can help you successfully quit Assistance with developing a plan to quit Call to set up an individual appointment or find out when group classes will be held: [facility]: [phone] [facility]: [phone] [facility]: [phone] [facility]: [phone] Quit Smoking Action Plan and Resources [facility] offers an eight-week, online smoking cessation plan to all [facility] employees, regardless of whether [place] is your medical insurance provider. Go to [email or web address]/employeewellness and click the Health Risk Assessment and Resources linkto get started. In the [employer]abien.com menu, click Action Plans instead of Health Risk Assessment to access the Quit Smoking Action Plan. Additional smoking cessation resources are also available to all [facility] employees on the Shtvd8Qtgsga web page at www.EveryMove.com/quitsmoking. [place] Tobacco Cessation Program If [place] is your medical insurance provider, there are more free resources available to you, including: No copays or deductibles on local tobacco cessation counseling services to help you quit Prescription assistance for tobacco cessation medications to help you quit For details about the tobacco cessation program available to [place] members, go to www.EveryMove.Salesfusion (Search: Tobacco Cessation Program). [place] Tobacco Quit Line 2-154-EDAE-NOW ( ) is a toll-free, telephonic service that helps [place] residents quit smoking and using tobacco. It is staffed by experts who tailor a quit plan for you and provide you with advice. [place] Tobacco Quit Line 5-076-TMBF-NOW ( ) is a toll-free, telephonic service that helps [place] residents quit smoking and using tobacco. It is staffed by experts who tailor a quit plan for you and provide you with advice. Two weeks of nicotine replacement therapy may be provided at no charge, if needed. Additional Resources These national organizations also offer free information and resources to help you quit tobacco: [place] Cancer Society--www.cancer.org/healthy/stayawayfromtobacco [place] Heart Association--www.heart.org (Search: Quit Smoking) Centers for Disease Control and Prevention--www.cdc.gov/tobacco [place] Lung Association--www.lungusa.org documented in this encounterWVUMedicine [facility] Hospital09-10-2024 Discharge summary Author Vivek washburn [facility] November 14, 2023 7:16am Note Date/Time November 14, 2023 7:17am [facility] [address] [place] [address] Discharge Summary Signed Patient: Shahla Arias MR#: [id number] : 1980 Acct:[id number] Age/Sex: 43 / F Adm Date: 4 Loc: Room: [address] [place] [address]: Geo Loomis MD Copies to: MD Geo Arredondo MD Pamela Sue Cramer, WIRE MILL OPERATOR~ Providers Date of Discharge: 11/14/23 Discharging Provider: [...] the unit milieu. She has beenworking with director of casework on her aftercare she agreed to continue the current medications regimen. She understands risks, benefits, and indications of current medication regimen.She sees Opal Tracey her outpatient MEDICAL CLAIMS ANALYST She has not history of recent suicide [...] Instructions: Important Contact Information You can call [facility] at [phone] any time day or night if you have emergent questions or question regarding discharge instructions. If at any time you are feeling an increase inyour psychiatric symptoms, call your physician or behavioral healthcare provider. If any time you have thoughts of harming yourself or others contact one of the following: Call (available 26/09) Crisis Text Line (available 26/09) text 4HOPE to [phone] [facility] Hope Line (available 8 a.m. Midnight) call [phone] ([phone]) Instructions: Know your Meds Prescriptions: New bupropion [...] tablet 75 mg PO DAILY Follow Up: [facility] [Outside] Josette Mandel NP-C [Primary Care Provider] [...] signed by Vivek Antoine MD> 11/14/23 0716 [facility] Work Phone: 1(779) 808-743909-09-2024 Progress note Author Vivek washburn [facility] November 13, 2023 7:20am Note Date/Time November 13, 2023 7:19am [facility] [address] [place] [address] Psychiatry Progress Note Signed Patient: Shahla Arias MR#: [id number] 2579 : 1980 Acct:[id number] Age/Sex: 43 / F Adm Date: 4 Loc: Room: [address] [place] [address] Type : ADM IN Attending Dr: Geo Loomis MD Copies to: ~ Date of Service: 11/13/2023 Subjective Subjective Narrative: Ms. Arias reported that she her anxiety at 7 out of 10 with 10 being the worst. Depression is ongoing but noted no suicidal thoughts on exam. She lives with herhusband and daughter whom she described as supportive. She sees Sabina Tracey her outpatient MEDICAL CLAIMS ANALYST and a therapist. She said symptoms are [...] signed by Vivek Antoine MD> 11/13/23 0720 [facility] Work Phone: 1(935) 491-684209-08-2024 Progress note Author Geo Loomis [facility] November 12, 2023 11:19am Note Date/Time November 12, 2023 11:20am [facility] [address] [place] [address] Psychiatry Progress Note Signed Patient: Shahla Arias MR#: [id number] 2579 : 1980 Acct:[id number] Age/Sex: 43 / F Adm Date: 4 Loc: Room: [address] [place] [address] Type : ADM IN Attending Dr: Geo [...] signed by Geo Loomis MD> 11/12/23 1119 [facility] Work Phone: 1(811) 203-761109-07-2024 Progress note Author Geo Loomis [facility] November 11, 2023 12:01pm Note Date/Time November 11, 2023 12:01pm [facility] [address] [place] [address] Psychiatry Progress Note Signed Patient: Shahla Arias MR#: [id number] 2579 : 1980 Acct:[id number] Age/Sex: 43 / F Adm Date: 4 Loc: Room: [address] [place] [address] Type : ADM IN Attending Dr: Geo [...] signed by Geo Loomis MD> 11/11/23 1201 [facility] Work Phone: 1(354) 154-689609-06-2024 Progress note Author Geo Loomis [facility] November 10, 2023 1:59pm Note Date/Time November 10, 2023 12:12pm [facility] [address] [place] [address] Psychiatry Progress Note Signed Patient: Shahla Arias MR#: [id number] : 1980 Acct:[id number] Age/Sex: 43 / F Adm Date: 4 Loc: Room: [address] [place] [address] Type : ADM IN Attending Dr: Geo [...] signed by Geo Loomis MD> 11/10/[address] [facility] Work Phone: 1(267) 307-529909-05-2024 History and physical note Author Geo Loomis [facility] November 09, 2023 2:13pm Note Date/Time November 09, 2023 1:40pm [facility] [address] [place] [address] Psychiatry H&P Signed Patient: Shahla Arias MR#: [id number] 2579 : 1980 Acct:[id number] Age/Sex: 43 / F Adm Date: 4 Loc: Room: [address] [place] [address] Type: ADM IN Attending Dr: Geo Loomis [...] confirmed this with the medical student as notedbeljohanne. [facility] Medical History Essential hypertension Depression with anxiety [...] of carpal tunnel release of both wrists [place] teeth removed History of cholecystectomy Family History [...] Appearance Clear Urine pH 5.0 Ur Specific [place] 1.018 Urine Protein Negative Urine Glucose (UA) [...] <Electronically signed by Geo Loomis MD> 11/09/[address] [facility] Work Phone: 1(466) 271-698206-27-2024 Evaluation + Plan note* Assessment & Plan Note - Stephanie Webster MD - 08/31/2023 9:04 AM EDTAssociated Problem(s): Cigarette smoker motivated to quit Counseled on smoking cessation at least 4 minutes. [facility] Evaluation + Plan note* Assessment & Plan Note - Stephanie Webster MD - 08/31/2023 9:04 AM EDTAssociated Problem(s): Severe claudication ([facility]) Aspirin Plavix and statin Supervised walking program Smoking cessation Follow-up and 3 months. [facility]06-27-2024 Miscellaneous Notes* Assessment & Plan Note - Stephanie Webster MD - 08/31/2023 9:04 AM EDTAssociated Problem(s): Cigarette smoker motivated to quit Counseled on smoking cessation at least 4 minutes. * Assessment & Plan Note - Stephanie Webster MD - 08/31/2023 9:04 AM EDT Associated Problem(s): Severe claudication ([facility]) Aspirin Plavix and statin Supervised walking program Smoking cessation Follow-up and 3 months. documented in this encounterWVUMedicine Barnesville Hospital06-27-2024 History of Present illness Narrative* Stephanie Webster MD - 08/31/2023 9:00 AM EDT Images from the original note were not included. To: JOSETTE MANDEL, RADIO RECORDER-WIRE MILL OPERATOR HPI: Shahla Arias is a 43 y.o. [...] History: Past Medical History: Diagnosis Date Alcoholic ([facility]) Anxiety Arthritis Asthma Bipolar disorder ([facility]) Depression Fractures GERD (gastroesophageal reflux disease) HPV (human papilloma virus) infection Hyperlipidemia Hypertension Migraine Obesity Postoperative wound infection 05/22/2019 Past Surgical History: Past Surgical History: Procedure Laterality Date APPLICATION WOUND VAC N/A 05/22/2019 Performed by Boni Ogden MD at [facility] N/A 05/13/2019 Performed by Boni Ogden MD at [facility] OR Cardiac catheterization 07/02/2020 Performed by Va Coy MD at [facility] CARDIAC CATH LABS CARPAL TUNNEL RELEASE Bilateral CHOLECYSTECTOMY Coronary angiogram only N/A 07/02/2020 Performed by Va Coy MD at [facility] CARDIAC CATH LABS DEBRIDEMENT WOUND N/A 05/22/2019 Performed by Boni Ogden MD at [facility] LAPAROSCOPIC SALPINGECTOMY Bilateral 07/20/2022 Performed by Sabina Leung DO at [facility] LIVER BIOPSY Social and Family [...] Resource Strain: Low Risk (08/03/2021) Received from [employer] Overall Financial Resource Strain (CARDIA) Difficulty of Paying Living Expenses: Not hard at all Food Insecurity: No Food Insecurity (08/31/2023) Hunger Screening Food Insecurity - Worry: Never True Food Insecurity - Inability: Never True Transportation Needs: No Transportation Needs (08/03/2021) Received from [facility] PRAPARE - Transportation Lack of Transportation (Medical): No Lack of Transportation (Non-Medical): No Physical Activity: Inactive (05/31/2020) Exercise Vital Sign Days of Exercise per Week: 0 days Minutes of Exercise per Session: 0 min Stress: No Stress Concern Present (05/31/2020) [place] [employer] - Occupational Stress Questionnaire Feeling of Stress : Not at all Social Connections: Socially Isolated (05/31/2020) Social Connection and Isolation Panel [NHANES] Frequency of Communication with Friends and Family: Never Frequency of Social Gatherings with Friends and Family: Never Attends Christian Services: Never Active Member of Clubs or Organizations: No Attends Club or Organization Meetings: Never Marital Status: Interpersonal Safety: Unknown (06/28/2023) Received from [facility] [place] Safety & Environment Fear of Current or Ex-Partner: Not on file Emotionally Abused: Not on file Physically Abused: Not on file Sexually Abused: Not on file Physically or Sexually Abused: Not on file Housing Instability: Unknown (08/03/2021) Received from [employer] Housing Stability Vital Sign Unable to Pay [...] Stephanie Webster MD, EMA, RPVI, FSVS, FACS [facility] [employer] [facility] This note was created with the assistance of a speech recognition program. While intending to generate a timely document that accurately reflects the content of the visit, no guarantee can be provided that every grammatical or spelling mistake has been or will be identified or corrected. Thank you for your understanding. documented in this encounterPorter Medical CenterCoven[facility] Partners [id number] Instructions* Patient Instructions* Stephanie Webster MD - 08/31/2023 9:00 AM EDT Are You Ready To Kick The Habit? Free Tobacco Cessation Resources [facility] Services [facility] provide all employees with free tobacco cessation services that include: Counseling to understand nicotine addiction Education about medications that can help you successfully quit Assistance with developing a plan to quit Call to set up an individual appointment or find out when group classes will be held: [facility]: [phone] [facility]: [phone] [facility]: [phone] [facility]: [phone] Quit Smoking Action Plan and Resources [facility] offers an eight-week, online smoking cessation plan to all [facility] employees, regardless of whether [place] is your medical insurance provider. Go to www.CustomerAdvocacy.com.org/employeewellness and click the Health Risk Assessment and Resources link to get started. In the Comparabien.com menu, click Action Plans instead of Health Risk Assessment to access the Quit Smoking Action Plan. Additional smoking cessation resources are also available to all [facility] employees on the Lupoo[employer] web page at www.tocario/quitsmoking. [place] Tobacco Cessation Program If [place] is your medical insurance provider, there are more free resources available to you, including: No copays or deductibles on local tobacco cessation counseling services to help you quit Prescription assistance for tobacco cessation medications to help you quit For details about the tobacco cessation program available to [place] members, go to www.EveryMove.Salesfusion (Search: Tobacco Cessation Program). [place] Tobacco Quit Line 8-197-NKVI-NOW ( ) is a toll-free, telephonic service that helps [place] residents quit smoking and using tobacco. It is staffed by experts who tailor a quit plan for you and provide you with advice. [place] Tobacco Quit Line 4-291-KQQO-NOW ( ) is a toll-free, telephonic service that helps [place] residents quit smoking and using tobacco. It is staffed by experts who tailor a quit plan for you and provide you with advice. Two weeks of nicotine replacement therapy may be provided at no charge, if needed. Additional Resources These national organizations also offer free information and resources to help you quit tobacco: [place] [employer]--www.cancer.org/healthy/stayawayfromtobacco [place] Heart [employer]--www.heart.org (Search: Quit Smoking) Centers for Disease Control and Prevention--www.cdc.gov/tobacco [place] Lung Association--www.lungusa.org documented in this encounterPorter Medical CenterCovenant Surgical Partners [id number] Hospital Discharge instructions Additional Instructions Try your other anxiety medication first For continued anxiety despite your other medication you may take 1 lorazepam every 6-8 hours Follow-up as scheduled with the counseling center I also gave you the hope number to call if needed Return to the ER for thoughts of hurting yourself or others severe anxiety or any other [facility] Work Phone: [phone]) 926-289304-29-2024 History of Present illness Narrative* Halina Lizarraga APRN-GERONIMO - 07/03/2023 10:30 AM EDT Shahla Arias is a 43 y.o. 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 She is postmenopausal. Hysterectomy: no If [...] 05/22/2019 Performed by Boni Ogden MD at [facility] N/A 05/13/2019 Performed by Boni Ogden MD at [facility] Cardiac catheterization 07/02/2020 Performed by Va Coy MD at [facility] CARDIAC CATH LABS CARPAL TUNNEL RELEASE Bilateral CHOLECYSTECTOMY Coronary angiogram only N/A 07/02/2020 Performed by Va Coy MD at [facility] CARDIAC CATH LABS DEBRIDEMENT WOUND N/A 05/22/2019 Performed by Boni Ogden MD at [facility] LAPAROSCOPIC SALPINGECTOMY Bilateral 07/20/2022 Performed by Sabina Leung DO at [facility] LIVER BIOPSY Family History Problem [...] use of lubrication w/intercourse. RTO for annual vehicle dismantler exam and / or PRN. YENNY Heard 07/03/23 1132 YENNY Heard 07/03/23 1402 documented in this encounterWVUMedicine Barnesville Hospital03-14-2024 History of Present illness Narrative* Stephanie Webster MD - 05/18/2023 3:30 PM EDT Images from the original note were not included. [facility] [address] [facility] [id number] Subjective: Patient ID: Shahla Arias is a 43 y.o. female. Chief Complaint Chief Complaint Patient presents with Hospital Follow-up [facility] History of Present Illness: 43 F [...] Rfl: Past Medical History: Diagnosis Date Alcoholic ([facility]) Anxiety Arthritis Asthma Bipolar disorder ([facility]) Depression Fractures GERD (gastroesophageal reflux disease) HPV (human papilloma virus) infection Hyperlipidemia Hypertension Migraine Obesity Postoperative wound infection 05/22/2019 Past Surgical History: Procedure Laterality Date APPLICATION WOUND VAC N/A 05/22/2019 Performed by Boni Ogden MD at [facility] N/A 05/13/2019 Performed by Boni Ogden MD at [facility] Cardiac catheterization 07/02/2020 Performed by Va Coy MD at [facility] CARDIAC CATH LABS CARPAL TUNNEL RELEASE Bilateral CHOLECYSTECTOMY Coronary angiogram only N/A 07/02/2020 Performed by Va Coy MD at [facility] CARDIAC CATH LABS DEBRIDEMENT WOUND N/A 05/22/2019 Performed by Boni Ogden MD at [facility] LAPAROSCOPIC SALPINGECTOMY Bilateral 07/20/2022 Performed by Sabina Leung DO at [facility] LIVER BIOPSY Family History Problem Relation [...] min Stress: No Stress Concern Present (05/31/2020) [place] [employer]ational Health - Occupational Stress Questionnaire Feeling of Stress : Not at all Social Connections: Socially Isolated (05/31/2020) Social Connection and Isolation Panel [NHANES] Frequency of Communication with Friends and Family: Never Frequency of Social Gatherings with Friends and Family: Never Attends Christian Services: Never Active Member of Clubs or [...] EMA Stephanie Webster MD documented in this encounterWVUMedicine [facility]ville [facility]02-10-2024 Evaluation note* Encounter Date Diagnosis Assessment [...] understanding and is agreeable with treatment plan [facility] Other 12-22-2023 Evaluation note* Encounter Date Diagnosis [...] notify me immediately of any other SEs. 22 Dec, 2023 Depression with anxiety (ICD-10 - F41.8) Controlled. [...] (ICD-10 - F17.218) Smoking cessation strongly encouraged. [facility] Other 10-17-2023 Evaluation note* Encounter Date Diagnosis [...] understanding and is agreeable to treatment plan [facility] Other 09-19-2023 Evaluation note* Encounter Date Diagnosis [...] She may need to consider seeing a fashion illustrator and discussing alternative medication options with her [...] (ICD-10 - F17.218) Smoking cessation strongly encouraged. [facility] Other 09-11-2023 Evaluation note* Encounter Date Diagnosis Assessment Notes Treatment Notes Treatment Clinical Notes Nov, Essential hypertension (ICD-10 - I10) [facility] Other 06-21-2023 Evaluation note* Encounter Date Diagnosis [...] (ICD-10 - F17.218) Smoking cessation strongly encouraged. [facility] Other 03-21-2023 Evaluation note* Encounter Date Diagnosis Assessment Notes Treatment Notes Treatment Clinical Notes May, Vitamin D deficiency (ICD-10 - E55.9) [facility] Other 03-15-2023 Evaluation note* Encounter Date Diagnosis [...] (ICD-10 - F17.218) Smoking cessation strongly encouraged. [facility] Other 03-11-2023 Progress note Author Geo Loomis [facility] May 14, 2022 11:17am Note Date/Time May 14, 2022 11: 17am [facility] [address] [place] [address] Psychiatry Progress Note Signed Patient: Shahla Ruelas MR#: [id number] : 1980 Acct:[id number] Age/Sex: 42 / F Adm Date: 3 Loc: Room: [address] [place] [address] Type : ADM IN Attending Dr: Geo [...] signed by Geo Loomis MD> 05/14/22 1117 [facility] Work Phone: 1(242) 960-942203-10-2023 Progress note Author Geo Loomis [facility] May 13, 2022 12:04pm Note Date/Time May 13, 2022 10: 47am [facility] [address] [place] [address] Psychiatry Progress Note Signed Patient: Shahla Ruelas MR#: [id number] : 1980 Acct:[id number] Age/Sex: 42 / F Adm Date: 3 Loc: Room: [address] [place] [address] Type : ADM IN Attending Dr: Geo [...] signed by Geo Loomis MD> 05/13/22 1204 [facility] Work Phone: 1(465) 824-255203-09-2023 Progress note Author Geo Loomis [facility] May 12, 2022 2:13pm Note Date/Time May 12, 2022 9:57 am [facility] [address] [place] [address] Psychiatry Progress Note Signed Patient: Shahla Ruelas MR#: [id number] : 1980 Acct:[id number] Age/Sex: 42 / F Adm Date: 3 Loc: Room: [address] [place] [address] Type : ADM IN Attending Dr: Geo [...] out of 10. 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 Patient claims that [...] explained Documented By: Geo Loomis MD 05/12/22 0924 Signed By: <Electronically signed by Geo Loomis MD> 05/12/22 2053 [facility] Work Phone: 1(644) 151-253903-08-2023 History and physical note Author Geo Loomis [facility] May 11, 2022 10:39am Note Date/Time May 11, 2022 10:3 9am [facility] [address] [place] [address] Psychiatry H&P Signed Patient: Shahla Ruelas MR#: [id number] : 1980 Acct:[id number] Age/Sex: 42 / F Adm Date: 3 Loc: 1S Room: 1O8466-0 Type: ADM IN Attending Dr: Geo Loomis [...] Cloudy A Urine pH 6.0 Ur Specific [place] 1.028 Urine Protein 30 H Urine Glucose [...] signed by Geo Loomis MD> 05/11/22 1039 [facility] Work Phone: [phone]) [phone] Evaluation note* Encounter Date Diagnosis Assessment Notes [...] treatment. Call at any time with questions/concerns. [facility] Other 12-12-2022 History of Present illness Narrative* Dennis Dunn MD - 02/14/2022 12:03 PM EST This encounter was opened in error. Patient was a No-Show. Please disregard. Called, directly to busy signal. Dennis Sarmiento MD documented in this [id number] Evaluation note* Encounter Date Diagnosis Assessment Notes Treatment Notes Treatment Clinical Notes Nov, Mild intermittent asthma without complication (ICD-10 - J45.20) [facility] Other 06-30-2022 History of Present illness Narrative* [...] and Staging Information: SPECIMEN FOR SURGICAL PATH: [id number] Order: [id number] Collected 07/30/2021 15:54 Status: Final result Visible to patient: Yes (not seen) Dx: Liver cyst; Cyst of gallbladder 0 Result Notes Component Case Report Surgical Pathology Report Case: [id number] Authorizing Provider: Dennis Sarmiento MD Collected: 07/30/2021 1554 Ordering Location: [facility] Main OR Received: 08/03/2021 [...] identified lymph nodes or masses grossly. Sections: Horticulture Instructor A1. Fibrotic tissue (X) B. Requisitioned as [...] of tumor, it is inked green. Sections: Horticulture Instructor B1. Cystic lesion, fibrotic area (X) B2-B6. [...] Kortney Ivey M.D Clinical Information Resulting Agency [facility] Specimen Collected: 07/30/21 15:54 Last Resulted: 08/05/21 08:46 Order Details View Encounter Lab and Collection Details Routing Result History Scans on Order [id number] Document on 08/05/2021 8:46 AM by Marc Ricketts, Treatment Recommendations and NCCN: Plan no surgical intervention needed at this time. Follow up in 02/[address] Sarmiento The above recommendations were based on NCCN guidelines, as well as consideration of current national standards and review of the literature. Nicole Garcia RN documented in this [id number] [facility] - History [...] 4 mg/0.1 mL nasal liquid Use 1 [place] in one nostril (alternate sides) as needed [...] ??? T Prot (more content not included)...The [employer] [id number] Evaluation note* Encounter Date Diagnosis Assessment Notes [...] I see her back in 6 months. [facility] Other 06-13-2022 History of Present illness Narrative* Dennis Dunn MD - 08/16/2021 1:09 PM EDT Phone numbers Preferred Documentation: Mode: Telephone Patient Patient Work Phone: Patient Cell Preferred phone: [phone] Consent: I confirmed patient understanding of the risks and benefits of telehealth visits and obtained consent to proceed with the telehealth visit. Location of Patient: Home of patient Surgery Follow Up Feeling well since surgery. Still hurting but she is starting to feel better. [facility] week for staple removal. SPECIMEN FOR SURGICAL PATH: [id number] Order: [id number] Collected 07/30/2021 15:54 Status: Final result Visible to patient: Yes (not seen) Dx: Liver cyst; Cyst of gallbladder 0 Result Notes Component Case Report Surgical Pathology Report Case: [id number] Authorizing Provider: Dennis Sarmiento MD Collected: 07/30/2021 1554 Ordering Location: [facility] Main OR Received: 08/03/2021 [...] identified lymph nodes or masses grossly. Sections: Horticulture Instructor A1. Fibrotic tissue (X) B. Requisitioned as [...] of tumor, it is inked green. Sections: Horticulture Instructor B1. Cystic lesion, fibrotic area (X) B2-B6. 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 Follow up in 6 months with a televisit in person if needed. Dennis Sarmiento MD, FACS documented in this [id number] History of Present illness Narrative* Josephine Osborn [...] 4 mg/0.1 mL nasal liquid Use 1 [place] in one nostril (alternate sides) as needed [...] 2.87 8.0 24.0 84 15.5 186 08/01/21 000 7.6 2.66 7.6 22.3 84 [...] less than 10cc serous fluid in bulb. Hodges in place, incision healing Lymphatic: No cervical [...] Risk protocol implemented: No documented in this [id number] Hospital Discharge instructions* Discharge Instructions* Meenakshi Weeks PA-C - 08/04/2021 8:31 AM EDT GENERAL SURGERY DISCHARGE INSTRUCTIONS C O N F I D E N T I A L I N F O R M A T I O N Shahla Ruelas [id number] The following is a brief overview of [...] Other SIGNED: Registered Nurse documented in this [id number] History of Present illness Narrative* Meenakshi Weeks [...] vital signs. Holding home losartan. Pulm: Resp tube bender hand protocol, Encourage IS x10/hr, OOB and ambulation [...] discharge planning needs as warranted. MILAN Ferrell, ex chef * Nicole Bello PA-C - 08/03/2021 7:19 [...] 186 08/01/21 0841 29 08/01/21 0841 1.13 08/01/216 7.6 2.66 7.6 22.3 84 15.6 163 Basic Metabolic Panel Na K Cl CO2 Gap Glu BUN Cr Ca Mg PO4 08/03/2149 138 3.8 103 25 14 88 3 0.65 8.7 08/03/2149 1.9 08/02/2111 1.9 08/02/2111 138 4.2 106 25 11 [...] vital signs. Holding home losartan. Pulm: Resp tube bender hand protocol, Encourage IS x10/hr, OOB and ambulation [...] Bello PA-C General Surgery PGY3 Blue Pager: [phone] * Tamara Jurado MD - 08/02/2021 8:53 AM EDT Images from the original note were not included. [facility] PROGRESS NOTE Interval history/Events: No acute events overnight Pain adequately controlled with TALENT ACQUISITION PROGRAM MANAGER Tolerating clear liquid Using IS Drain [...] vital signs. Holding home losartan. Pulm: Resp tube bender hand protocol, Encourage IS x10/hr, OOB and ambulation GI: FLD. Cont nexium daily, carafate. /FEN: cont LR at 75/hr. TOV today. Endocrine: no hx of glyemic issues ID: No abx indicated Proph: lovenox daily and SCDs Dispo: Continue on RNF Patient d/w Attending Surgeon Dr. Sarmiento --- Tamara Jurado MD General Surgery PGY3 Blue Pager: [phone] * Madeleine Hooks MD - 08/01/2021 8:06 AM EDT Images from the original note were not included. BLUE SURGERY PROGRESS NOTE Interval history/Events: No acute events overnight Pain adequately controlled with TALENT ACQUISITION PROGRAM MANAGER Mild nausea but improved Tolerating clear [...] PRN .NO ORAL PAIN MEDS WHILE ON TALENT ACQUISITION PROGRAM MANAGER/EPIDURAL 1 Each PRN naloxone 0.4 mg [...] 08/01/2021. Plan: Neuro/Pain: scheduled tylenol, robaxin. Dilaudid TALENT ACQUISITION PROGRAM MANAGER. Cont home trazodone and fluoxetine CV: Monitor vital signs Pulm: Resp tube bender hand protocol, Encourage IS x10/hr, OOB and ambulation GI: NPO for possible PTHC today. Consult IR for PTHC given bile leak ( discussed with ED dental resident who will discuss with IR team). Cont nexium daily, carafate /FEN: cont LR at 75/hr. Voiding spontaneously Endocrine: no hx of glyemic issues ID: No abx indicated Proph: lovenox daily and SCDs Dispo: Continue on RNF Patient d/w Attending Surgeon Dr. Sarmiento --- Madeleine Hooks MD General Surgery PGY3 Blue Pager: [phone] * Tamara Jurado MD - 07/31/2021 8:55 AM EDT Images from the original note were not included. BLUE SURGERY PROGRESS NOTE Subjective - NAEON - some abdominal pain on TALENT ACQUISITION PROGRAM MANAGER - some indigestion this morning - [...] Gap Glu BUN Cr Ca Mg PO4 07/31/21247 1.5 07/31/21247 135 4.6 106 22 12 129 10 0.85 8.9 07/31/213 138 07/30/212009 138 07/30/21 1738 135 07/30/21 1647 137 Hepatic/Biliary/Pancreas T Prot Albumin D Bili T Bili Alk Phos ALT AST Amylase Lipase 07/31/21247 4.7 3.7 0.40 1.8 30 55 [...] PRN .NO ORAL PAIN MEDS WHILE ON TALENT ACQUISITION PROGRAM MANAGER/EPIDURAL 1 Each PRN naloxone 0.4 mg PRN IV lactated ringers 75 mL/hr at 05/28/22 0249 HYDROmorphone Assessment: 41 y/o F with gallbladder cyst and liver cyst who is s/p diagnostic laparoscopy, exploratory laparotomy, KATHERIN, enucleation biliary cyst adenoma, common bile duct exploration, biliary endoscopy, cholangiogram, and Yovani-en-y hepaticojejunosotomy [address]arm[address] and [address] Larson Plan: - CLD; Zofran, Phenergan, Scopolamine patch for nausea; continue carafate - Tylenol, Robaxin, TALENT ACQUISITION PROGRAM MANAGER - LR 75, daily labs - [...] Torsten Jurado MD PGY1 documented in this [id number] Note* Care Plan Note - [place] [...] adult patient will be met Outcome: Progressing [id number] Miscellaneous Notes* Care Plan Note - Oly [...] Progressing * Brief Operative Note - Madeleine Hoosk MD - 07/30/2021 2:08 PM EDT Brief Operative Note MAIN OR 07 Shahla Ruelas 41 year old female Surgical Contact Serial Number: [id number] Preoperative Diagnosis: Cyst of gallbladder [K82.8] Liver [...] Mercedes Soliman; Anya Fletcher; Juan Jon, VITA Stopper Grinder Nurse: Vitaly Reyes, RN; Kraig Espinal; Rosa Seo, VITA; Yumiko Haji, VITA; Irina Marie, VITA; Juany Higginbotham, piping drafterExperience Design Director: Madeleine Hooks MD Anesthesia: General Anesthesiologist: Neil Rodriguez MD; Uriel Hathaway DO CAA: Rina Childress PERFECT BINDER SETTER: Adrian Bermudez RADIO RECORDER-PERFECT BINDER SETTER; Jewel Vogel RADIO RECORDER-PERFECT BINDER SETTER; Mariel Ireland RADIO RECORDER-PERFECT BINDER SETTER Microfilm Mounter: Al Mascorro MD; Jean Ojeda MD Specimen(s): [...] duct. Polyp extracted from left hepatic duct. Yovnai-en-y hepaticojejunostomy x 2 to left hepatic duct [...] Diamond Larson MD Co-Surgeon: Dennis Sarmiento MD Conservation Science Officer: Madeleine Hooks MD (general surgery resident) Anesthesiologist: [...] were discussed with the patient and/or legal territory account representative. The risks, benefits and alternatives were reviewed. Questions regarding anesthesia were answered. Patient and/or legal territory account representative knows such anesthetics and procedures may [...] were discussed with the patient and/or legal territory account representative. The risks, benefits and alternatives were reviewed. Questions regarding blood transfusions were answered. The patient /or the patient s legal territory account representative agree with the plan for transfusion of blood and/or blood components. documented in this [id number] Note* Care Plan Note - Antoinette Elmore [...] adult patient will be met Outcome: Progressing [id number] Consult note* Guilhermealondra Lavinia, PT - 08/03/2021 4:22 PM EDT [...] Dep Max Mod Min CG CS DS [place] I Comment Supine to sit x Sit [...] With Patients permission ordered no equipment via [employer] Order. If any questions contact [facility] DME Provider at [phone]. 7 Clicks Basic Mobility PT 08/03/2021 Difficulty turning [...] Care Lavinia Jones PT , DPT, CLT #[phone] NA = Not Assessed, I = Independent, [place] = Modified Independent, Sup = Supervised, Set up = Physical Assistance for Set-up Only, Min = Minimal Assistance, Mod = Moderate Assistance, Max = Maximal assistance; Dep = Dependent; AROM = Active Range of Motion; PROM = Passive Range of Motion; MMT = Manual Muscle Test [id number] Consult note* Lavinia Jones PT - 08/03/2021 [...] Dep Max Mod Min CG CS DS [place] I Comment Supine to sit x Sit [...] With Patients permission ordered no equipment via [employer] Order. If any questions contact [facility] DME Provider at [phone]. 6 Clicks Basic Mobility PT 08/03/2021 Difficulty [...] Care Lavinia Jones, PT , DPT, CLT #[phone] NA = Not Assessed, I = Independent, NY = Modified Independent, Sup = Supervised, Set [...] Dep Max Mod Min CG CS DS [place] I Set-Up Comment Feeding x Grooming/Hygiene x Bathing:UB x Bathing:LB x Dressing:UB x Dressing: LB x Toileting x Transfers/Bed Mobility: Assistance Level NA Dep Max Mod Min CG CS DS [place] I Set-Up Comment Toilet Transfers x Bed Transfers x Bed Mobility x Dynamic standing x Endurance for Self Care: Good Static Sitting Balance: WFL Dynamic Sitting Balance: WFL Patient/Family Education: Instructed patient in roles of therapy Patient up in bed with call light in reach. . DME: With Patients permission ordered no equipment via [employer] Order. If any questions contact [facility] DME Provider at [phone]. Progressive Mobility Level: 4 6 Clicks Daily [...] Guard Assist/Supervision 4 - Non = Modified [place]/Independent ASSESSMENT: Patient is functionally appropriate for discharge [...] NA = Not Assessed, I = Independent, NY = Modified Independent, Sup = Supervised, Set [...] OBJECTIVE: Appearance: drain x 1, reyes, IV, TALENT ACQUISITION PROGRAM MANAGER Behavior: Awake, pleasant, cooperative, agreeable to therapy Pain: Site/Location: stomach; Pain Scale: 6/10 Pain Relief Interventions Implemented: Positioning and Rest, pt utilizes TALENT ACQUISITION PROGRAM MANAGER PRN, RN aware Mobility NA Dep Max Mod Min CG CS DS [place] I Comment Roll to right sidelying x [...] NA = Not Assessed, I = Independent, NY = Modified Independent, Sup = Supervised, Set [...] and benefits of treatment Appearance: Oxygen, IV, TALENT ACQUISITION PROGRAM MANAGER, Drain JANETT and Reyes Alertness: Drowsy Affect: flat Cooperation/Behavior: cooperative Communication: Able to express needs with increased processing time Pain: Pain ratin/10, Location: abdomen Pain Relief Interventions Implemented: Positioning and activity Self Care: Assistance Level Dep Max Mod Min CG CS DS [place] I Set-Up Comment Feeding x Grooming/Hygiene x Standing sink side Bathing:UB x Anticipated, recommend seated Bathing:LB x Anticipated, recommend seated Dressing:UB x Dressing: LB x Socks Toileting x Reyes Transfers/Bed Mobility: Assistance Level Dep Max Mod Min CG CS DS [place] I Set-Up Comment Toilet Transfers Bed Transfers [...] Guard Assist/Supervision 4 - Non = Modified [place]/Independent ASSESSMENT: Anticipate patient will be appropriate for [...] the development of plan and goals. 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 0 steps to bedroom/bathroom Assistance available: Spouse can assist PRN Equipment available: none OBJECTIVE: Appearance: Oxygen, IV, TALENT ACQUISITION PROGRAM MANAGER, Drain and Reyes Behavior: Drowsy Oriented x 4 Follows multple step commands consistently and without cues Pain: Site/Location: abdomen; Pain Scale: 7/10 Pain Relief Interventions Implemented: Encouraged patient to use TALENT ACQUISITION PROGRAM MANAGER Passive ROM: Not formally tested however [...] With Patients permission ordered no equipment via [employer] Order. [facility] [phone]. 6 Clicks Basic Mobility PT 07/31/2021 Difficulty [...] NA = Not Assessed, I = Independent, NY = Modified Independent, Sup = Supervised, Set up = Physical Assistance for Set-up Only, Min = Minimal Assistance, Mod = Moderate Assistance, Max = Max assistance; Dep = Dependent; AROM = Active Range of Motion; PROM = Passive Range of Motion; MMT = Manual Muscle Test; LE = Lower Extremity documented in this [id number] Consult note* Sharee Herndon, OT - 08/03/2021 [...] Dep Max Mod Min CG CS DS [place] I Set-Up Comment Feeding x Grooming/Hygiene x Bathing:UB x Bathing:LB x Dressing:UB x Dressing: LB x Toileting x Transfers/Bed Mobility: Assistance Level NA Dep Max Mod Min CG CS DS [place] I Set-Up Comment Toilet Transfers x Bed Transfers x Bed Mobility x Dynamic standing x Endurance for Self Care: Good Static Sitting Balance: WFL Dynamic Sitting Balance: WFL Patient/Family Education: Instructed patient in roles of therapy Patient up in bed with call light in reach. . DME: With Patients permission ordered no equipment via [employer] Order. If any questions contact [facility] DME Provider at [phone]. Progressive Mobility Level: 4 6 Clicks Daily [...] Guard Assist/Supervision 4 - Non = Modified [place]/Independent ASSESSMENT: Patient is functionally appropriate for discharge [...] NA = Not Assessed, I = Independent, [place] = Modified Independent, Sup = Supervised, Set up = Physical Assistance for Set-up Only, Min = Minimal Assistance, Mod = Moderate Assistance, Max = Max assistance; Dep = Dependent; AROM = Active Range of Motion;PROM=Passive Rangeof Motion; MMT = Manual Muscle Test; UB = Upper Body; LB = Lower Body [id number] Note* Care Plan Note - Rayshawn Shaw [...] adult patient will be met Outcome: Progressing [id number] Note* Care Plan Note - Keiko Zhang [...] 08/02/2021943 by Keiko Zhang RN Outcome: Progressing [id number] Note* Care Plan Note - Dinorah Palencia [...] adult patient will be met Outcome: Progressing [id number] Consult note* Zoya Anna, PT - 08/01/2021 3:20 PM EDT PHYSICAL THERAPY PROGRESS SUMMARY Patient seen from 1452 to 1520 on 8A unit for 28 minute treatment. SUBJECTIVE: Patient Subjective/Goals: It feels good to get up and get out OBJECTIVE: Appearance: drain x 1, reyes, IV, TALENT ACQUISITION PROGRAM MANAGER Behavior: Awake, pleasant, cooperative, agreeable to therapy Pain: Site/Location: stomach; Pain Scale: 6/10 Pain Relief Interventions Implemented: Positioning and Rest, pt utilizes TALENT ACQUISITION PROGRAM MANAGER PRN, RN aware Mobility NA Dep Max Mod Min CG CS DS [place] I Comment Roll to right sidelying x [...] NA = Not Assessed, I = Independent, [place] = Modified Independent, Sup = Supervised, Set up = Physical Assistance for Set-up Only, Min = Minimal Assistance, Mod = Moderate Assistance, Max = Maximal assistance; Dep = Dependent; AROM = Active Range of Motion; PROM = Passive Range of Motion; MMT = Manual Muscle Test [id number] Note* Care Plan Note - Dinorah Palencia [...] adult patient will be met Outcome: Progressing [id number] Consult note* Josephine Hunter, OT - 07/31/2021 [...] and benefits of treatment Appearance: Oxygen, IV, TALENT ACQUISITION PROGRAM MANAGER, Drain JANETT and Reyes Alertness: Drowsy Affect: flat Cooperation/Behavior: cooperative Communication: Able to express needs with increased processing time Pain: Pain ratin/10, Location: abdomen Pain Relief Interventions Implemented: Positioning and activity Self Care: Assistance Level Dep Max Mod Min CG CS DS [place] I Set-Up Comment Feeding x Grooming/Hygiene x Standing sink side Bathing:UB x Anticipated, recommend seated Bathing:LB x Anticipated, recommend seated Dressing:UB x Dressing: LB x Socks Toileting x Reyes Transfers/Bed Mobility: Assistance Level Dep Max Mod Min CG CS DS [place] I Set-Up Comment Toilet Transfers Bed Transfers [...] Guard Assist/Supervision 4 - Non = Modified [place]/Independent ASSESSMENT: Anticipate patient will be appropriate for [...] NA = Not Assessed, I = Independent, [place] = Modified Independent, Sup = Supervised, Set up = Physical Assistance for Set-up Only, Min = Minimal Assistance, Mod = Moderate Assistance, Max = Max assistance; Dep = Dependent; AROM = Active Range of Motion;PROM=Passive Rangeof Motion; MMT = Manual Muscle Test; UB = Upper Body; LB = Lower Body [id number] Consult note* Heladio Chun, PT - 07/31/2021 [...] you Patient Identified 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 0 steps to bedroom/bathroom Assistance available: Spouse can assist PRN Equipment available: none OBJECTIVE: Appearance: Oxygen, IV, TALENT ACQUISITION PROGRAM MANAGER, Drain and Reyes Behavior: Drowsy Oriented x 4 Follows multple step commands consistently and without cues Pain: Site/Location: abdomen; Pain Scale: 7/10 Pain Relief Interventions Implemented: Encouraged patient to use TALENT ACQUISITION PROGRAM MANAGER Passive ROM: Not formally tested however [...] With Patients permission ordered no equipment via [employer] Order. If any questions contact [facility] DME Provider at [phone]. 6 Clicks Basic Mobility PT 07/31/2021 Difficulty [...] NA = Not Assessed, I = Independent, [place] = Modified Independent, Sup = Supervised, Set up = Physical Assistance for Set-up Only, Min = Minimal Assistance, Mod = Moderate Assistance, Max = Max assistance; Dep = Dependent; AROM = Active Range of Motion; PROM = Passive Range of Motion; MMT = Manual Muscle Test; LE = Lower Extremity [id number] Note* Care Plan Note - Dinorah Palencia [...] adult patient will be met Outcome: Progressing [id number] Nurse Surgical operation note* Irina Marie RN - 07/30/2021 7:58 PM EDT One 5fr stent placed in left hepatic duct, one 8 fr stent placed in accessory duct by Dr. Sarmiento intraoperatively. [id number] Nurse Note* Irina Marie RN - 07/30/2021 7:58 PM EDT One 5fr stent placed in left hepatic duct, one 8 fr stent placed in accessory duct by Dr. Sarmiento intraoperatively. documented in this [id number] Note* Brief Operative Note - Madeleine Hooks MD - 07/30/2021 2:08 PM EDT Brief Operative Note MAIN OR 07 Shahla Ruelas 41 year old female Surgical Contact Serial Number: [id number] Preoperative Diagnosis: Cyst of gallbladder [K82.8] Liver [...] Mercedes Soliman; Anya Fletcher; Juan Jon RN Stopper Grinder Nurse: Vitaly Reyes RN; Kraig Espinal; Rosa Seo RN; Yumiko Haji, VITA; Irina Marie, VITA; Juany Higginbotham RN Experience Design Director: Madeleine Hooks MD Anesthesia: General Anesthesiologist: Neil Rodriguez MD; Uriel Hathaway DO CAA: Rina Childress PERFECT BINDER SETTER: Adrian Bermudez RADIO RECORDER-PERFECT BINDER SETTER; Jewel Vogel RADIO RECORDER-PERFECT BINDER SETTER; Mariel Ireland RADIO RECORDER-PERFECT BINDER SETTER Microfilm Mounter: Al Mascorro MD; Jean Ojeda MD Specimen(s): ID Type Source Tests Collected by Time Destination 1 : Falciform Tissue Liver SPECIMEN FOR SURGICAL PATH Dennis Sarmiento MD 07/30/2021 1554 2 : biliary cystadenoma Tissue Liver SPECIMEN FOR SURGICAL PATH Dennis Sarmiento MD 07/30/2021 1719 3 : right hepatic duct polyp Tissue Liver SPECIMEN FOR SURGICAL PATH Dennis Sarmienot MD 07/30/2021 1813 A : liver cyst [...] by Madeleine Hooks MD 07/30/2021 11:09 PM [id number] Note* OP Note - Diamond Larson MD [...] Diamond Larson MD Co-Surgeon: Dennis Sarmiento MD Conservation Science Officer: Madeleine Hooks MD (general surgery resident) Anesthesiologist: [...] portion of the procedure. Diamond Larson MD [email or web address] Work Phone: 1(830) 877-729505-27-2022 History and physical note* Madeleine Hooks MD [...] possible Madeleine Hooks MD 07/30/2021 11:08 AM [facility] [id number] History and physical note* Madeleine Hooks MD [...] MD 07/30/2021 11:08 AM documented in this [id number] Note* Anesthesia Attestation - Uriel Hathaway DO - 07/30/2021 11:01 AM EDT Anesthesia Attestation ATTESTATION OF INFORMED CONSENT FOR ANESTHESIA Anesthesia options were discussed with the patient and/or legal territory account representative. The risks, benefits and alternatives were reviewed. Questions regarding anesthesia were answered. Patient and/or legal territory account representative knows such anesthetics and procedures may be performed by Resident physicians, Certified Anesthesiologist Assistants, or Certified Nurse Anesthetists under the supervision of a physician. The patient /or the patient s legal representativeagree with the plan for anesthesia. [facility] Work Phone: [phone]) 271-299705-27-2022 Note* Blood Attestation - Uriel Hathaway DO - 07/30/2021 11:01 AM EDT Blood Attestation ATTESTATION OF INFORMED CONSENT FOR BLOOD The transfusion of blood and/or blood components were discussed with the patient and/or legal territory account representative. The risks, benefits and alternatives were reviewed. Questions regarding blood transfusions were answered. The patient /or the patient s legal territory account representative agree with the plan for transfusion of blood and/or blood components. [id number] Miscellaneous Notes* OP Note - Dennis Sarmiento MD - 07/30/2021 8:03 AM EDT Name: SHAHLA RUELAS MR#: [id number] ENC#: [id number] Date of Procedure: 07/30/2021 ATTENDING SURGEON: Dennis [...] 6. Direct Biliary endoscopy with choledochoscope (CPT 20613). 7. Resection of hepatic duct polyp 8. Intraoperative cholangiogram. 9. Yovani-en-Y hepaticojejunostomy x2. 10. Vascularized omental pledget to anastomosis. 11. Intraoperative ultrasound of the liver and hepatic vessels (CPT: 85469) ANESTHESIA: General with endotracheal anesthesia. OPERATIVE INDICATIONS: [...] transected. A jejunojejunostomy was performed in a qqfc-sj-mvtp fashion with 3-0 Vicryl and 2-0 Ethibond [...] 3-0 PDS suture. Next, over both a 5-Wallisian pediatric feeding tube for the smaller hepatic duct and an 8-Wallisian pediatric feeding tube for the larger one, [...] is cleaned and dried. Prior to closure,a 19-Wallisian round José drain was placed posterior to [...] Dict: 07/31/2021 22:40:26 TRANS: 08/01/2021 00:30:11 JOB: [id number] [employer]#: [id number] documented in this [id number] Note* OP Note - Dennis Sarmiento MD - 07/30/2021 8:03 AM EDT Name: SHAHLA RUELAS MR#: [id number] [facility]#: [id number] Date of Procedure: 07/30/2021 ATTENDING SURGEON: Dennis [...] 6. Direct Biliary endoscopy with choledochoscope (CPT 05791). 7. Resection of hepatic duct polyp 8. Intraoperative cholangiogram. 9. Yovani-en-Y hepaticojejunostomy x2. 10. Vascularized omental pledget to anastomosis. 11. Intraoperative ultrasound of the liver and hepatic vessels (CPT: 77644) ANESTHESIA: General with endotracheal anesthesia. OPERATIVE INDICATIONS: [...] transected. A jejunojejunostomy was performed in a ijkb-og-ywlm fashion with 3-0 Vicryl and 2-0 Ethibond [...] 3-0 PDS suture. Next, over both a 5-Wallisian pediatric feeding tube for the smaller hepatic duct and an 8-Wallisian pediatric feeding tube for the larger one, [...] is cleaned and dried. Prior to closure,a 19-Wallisian round José drain was placed posterior to [...] Dict: 07/31/2021 22:40:26 TRANS: 08/01/2021 00:30:11 JOB: [id number] [facility]#: [id number] [email or web address] Work Phone: 1(946) 122-963205-13-2022 Miscellaneous Notes* Telephone Encounter - Trista Estrella RN - 07/16/2021 2:28 PM EDT Spoke with patient and advised that she start Ferrous Sulfate 325 mg every other day after surgery and follow up with pcp. Advised patient to call [facility] if unable to tolerate oral iron. Patient verbalized understanding. * Telephone Encounter - Leandra Snyder RPh - 07/16/2021 2:11 PM EDT [facility] Staff, Please contact patient re the following issue. We received a referral for anemia management from [facility] (patient to have surgery on 07/30). [...] hepatectomy partiel lobectomy 07/30 documented in this [id number] Instructions* Patient Instructions* Marcella Luevano APRN-CNP - [...] for pain. Please hold all Vitamin E, [place] 3, fish oil and herbal supplements for 1 week prior to surgery documented in this [id number] Miscellaneous Notes* PSE Appt H&P - Bee Wilde - 07/15/2021 12:58 PM EDT Patient was identified by name and date of . Bee Wilde Bill of rights provided to patient * PSE Appt H&P - Marcella Luevano APRN-CNP - 07/14/2021 2:18 PM EDT Images from the original note were not included. Presurgical Evaluation Shahla Mark Anthony Ruelas, [id number] 41 year old Female 07/15/2021 Height: 5' [...] Row Name Office Visit from 07/15/2021 in [facility] Pre-Surgical Evaluation History of sleep [...] old female who presented from OSH near [place] with chief complaint of RUQ pain and nausea and some vomiting. RUQ US at OSH demonstrated complex cyst in GB fossa. CTA showed increased size of lesion since 2015. Started on ertapenem and ceftriaxone in setting of elevated WBC and allergies to cipro, PCNs, flagyl. Transferred to [facility] for GI consult and possible [...] MCGRATH 7:58 AM 07/16/2021 documented in this [id number] Miscellaneous Notes* OP Note - Leobardo Barry MD - 06/16/2021 10:26 AM EDT Images from the original note were not included. ENDO 05 Shahla Mark Anthony Jessenia 41 year old female Surgical Contact Serial Number: [id number] Shahla Ruelas [id number] 06/16/2021 EMBROIDERY WORKER: Leobardo Barry MD ATTENDING:Leobardo Barry MD Procedure(s): [...] withdrawn from the patient. Bile duct obstruction [805359] 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 [2844370] PHANI PATH SPECIMEN SENT: yes SPECIMEN: Bile [...] were discussed with the patient and/or legal territory account representative. The risks, benefits and alternatives were reviewed. Questions regarding blood transfusions were answered. The patient /or the patient s legal territory account representative agree with the plan for transfusion of blood and/or blood components. * Anesthesia Attestation - Tamara Venegas MD - 06/16/2021 10:18 AM EDT Anesthesia Attestation ATTESTATION OF INFORMED CONSENT FOR ANESTHESIA Anesthesia options were discussed with the patient and/or legal territory account representative. The risks, benefits and alternatives were reviewed. Questions regarding anesthesia were answered. Patient and/or legal territory account representative knows such anesthetics and procedures may be performed by Resident physicians, Certified Anesthesiologist Assistants, or Certified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
--- NOTE | 2024-10-14 07:32 | US_ITS ---
The [address] [address] Patient Name: SHAHLA THAPA MRN: [id number] date: 1980 Sex: F Assigned Patient Location: ER Current Patient Location: ER Accession/Order Number: [id number] Exam Date: 10/14/2024 08:56 Report Date: 10/14/2024 09:01 At the request of: WINNIE FRANKLIN MD Procedure: US pelvis transvaginal Pelvic ultrasound. Reason for exam: Heavy bleeding for 2 days Comparison: none Technique: Transvaginal imaging of the uterus and ovaries was also obtained. Additional spectral Doppler analysis of the ovaries was also obtained. Findings: Uterus measures 8.9 x 5.2 x 4.9 cm. No measurable fibroid. Endometrium measures 1 cm without focal abnormality. No free fluid. Right ovary measures 2.1 x 1.6 x 2.5 cm. Left ovary measures 3.0 x 2.2 x 1.7 cm. No adnexal mass or cyst. Normal arterial and venous Doppler waveforms. US/US pelvis transvaginal Impression: No acute process. Impression dictated by: Scott Callejas Jr., D.O. 10/14/2024 9:01 AM Dictation Location: [place] [address] Electronically authenticated by: [id number] Y Date: 10/14/2024 09:01
--- NOTE | 2024-10-14 07:36 | ED.GENADUL1 ---
HPI HPI - General Adult General Chief complaint: Urogenital-Female Stated complaint: VAGINAL BLEEDING Time Seen by Provider: 10/14/24 07:19 Source: patient Mode of arrival: walk-in Limitations: no limitations History of Present Illness HPI narrative: 44-year-old female presents for vaginal bleeding. She states that she has had this for about 4 days and she has been soaking a pad every hour for the last day or 2. No dizziness or lightheadedness or syncope. No abdominal pain. She has not had a period in a few months and tells us that there is no chance of . She has not had heavy bleeding like this previously. Related Data Home Medications ?Medication ?Instructions ?Recorded ?Confirmed gabapentin 300 mg capsule 600 mg PO TID 05/09/23 10/14/24 olmesartan 20 1 tab PO DAILY 05/09/23 10/14/24 mg-hydrochlorothiazide 12.5 mg tablet omeprazole 40 mg capsule,delayed 40 mg PO .BIDAC 05/09/23 10/14/24 release albuterol sulfate 90 mcg/actuation 2 puff inhalation Q4H PRN 02/12/24 10/14/24 aerosol inhaler shortness of breath or wheezing cholecalciferol (vitamin D3) 50 50 mcg PO DAILY 02/12/24 10/14/24 mcg (2,000 unit) tablet lorazepam 1 mg tablet 1 mg PO TID PRN anxiety 02/12/24 10/14/24 olanzapine 5 mg tablet 5 mg PO BID PRN agitation 02/12/24 10/14/24 aspirin 81 mg tablet,delayed 81 mg PO DAILY 05/21/24 10/14/24 release bupropion HCl 300 mg 24 hr tablet, 300 mg PO DAILY 05/21/24 10/14/24 extended release hydroxyzine pamoate 25 mg capsule 75 mg PO TID PRN anxiety 05/21/24 10/14/24 Held on 10/14/24. Instructions: Doctor's Order levomilnacipran 20 mg capsule,24 20 mg PO DAILY 05/21/24 10/14/24 hr,extended release (Fetzima) metoprolol succinate 50 mg mg PO 10/14/24 tablet,extended release 24 hr naltrexone 50 mg tablet 50 mg PO DAILY 10/14/24 10/14/24 tiotropium bromide 18 mcg capsule inhalation 10/14/24 with inhalation device (Spiriva with HandiHaler) Previous Rx's ?Medication ?Instructions ?Recorded atorvastatin 40 mg tablet 40 mg PO DAILY #30 tabs 05/08/23 clopidogrel 75 mg tablet (Plavix) 75 mg PO DAILY #30 tabs 05/08/23 meclizine 25 mg tablet 25 mg PO TID PRN dizziness #14 tabs 09/14/24 Allergies Allergy/AdvReac Type Severity Reaction Status Date / Time ciprofloxacin (From Cipro) Allergy Severe Swelling Verified 10/14/24 07:19 of Lip/Tongue/Throat metronidazole (From Flagyl) Allergy Severe Swelling Verified 10/14/24 07:19 of Lip/Tongue/Throat Penicillins Allergy Severe Swelling Verified 10/14/24 07:19 of Lip/Tongue/Throat Opioid HPI Opioid Management Most Recent Opioid Data: Last Pain Scale 0 05/24/24, 04:04 Last ORT Total Score 3 05/21/24, 23:57 Last ORT Risk Category Low Risk 05/21/24, 23:57 Review of Systems ROS Narrative A ten point review of systems is negative except as noted above. PFSH PFS Medical History COPD (chronic obstructive pulmonary disease) with acute bronchitis ?J44.0 - Chronic obstructive pulmonary disease with (acute) lower respiratory infection (ICD-10) ?J20.9 - Acute bronchitis, unspecified (ICD-10) Acute renal insufficiency ?N28.9 - Disorder of kidney and ureter, unspecified (ICD-10) Sleep apnea syndrome ?G47.30 - Sleep apnea, unspecified (ICD-10) Obesity ?E66.9 - Obesity, unspecified (ICD-10) Tobacco abuse ?Z72.0 - Tobacco use (ICD-10) Prediabetes ?R73.03 - Prediabetes (ICD-10) Hyperlipidemia ?E78.5 - Hyperlipidemia, unspecified (ICD-10) ?Z34.90 - Encounter for supervision of normal , unspecified, unspecified trimester (ICD-10) Abdominal pain ?R10.9 - Unspecified abdominal pain (ICD-10) Elevated troponin ?R79.89 - Other specified abnormal findings of blood chemistry (ICD-10) Demand ischemia ?I24.89 - Other forms of acute ischemic heart disease (ICD-10) IAM (acute kidney injury) ?N17.9 - Acute kidney failure, unspecified (ICD-10) Peripheral vascular disease ?I73.9 - Peripheral vascular disease, unspecified (ICD-10) Acute renal failure ?N17.9 - Acute kidney failure, unspecified (ICD-10) Pneumonia ?J18.9 - Pneumonia, unspecified organism (ICD-10) Acute kidney injury ?N17.9 - Acute kidney failure, unspecified (ICD-10) Acute hypotension ?I95.9 - Hypotension, unspecified (ICD-10) Schizo affective schizophrenia ?F25.9 - Schizoaffective disorder, unspecified (ICD-10) delivery delivered ?O82 - Encounter for delivery without indication (ICD-10) Cholecystectomy planned Bilateral carpal tunnel syndrome ?G56.03 - Carpal tunnel syndrome, bilateral upper limbs (ICD-10) Left adrenal mass ?E27.8 - Other specified disorders of adrenal gland (ICD-10) Raynauds disease ?I73.00 - Raynaud's syndrome without gangrene (ICD-10) Nicotine dependence ?F17.200 - Nicotine dependence, unspecified, uncomplicated (ICD-10) GERD without esophagitis ?K21.9 - Gastro-esophageal reflux disease without esophagitis (ICD-10) Irritable bowel syndrome (IBS) ?K58.9 - Irritable bowel syndrome, unspecified (ICD-10) Left ventricular hypertrophy ?I51.7 - Cardiomegaly (ICD-10) Asthma ?J45.909 - Unspecified asthma, uncomplicated (ICD-10) Vitamin D deficiency ?E55.9 - Vitamin D deficiency, unspecified (ICD-10) SHARI (obstructive sleep apnea) ?G47.33 - Obstructive sleep apnea (adult) (pediatric) (ICD-10) Anxiety disorder with panic attacks ?F41.9 - Anxiety disorder, unspecified (ICD-10) Depression ?F32.A - Depression, unspecified (ICD-10) Hypertension ?I10 - Essential (primary) hypertension (ICD-10) Surgical History H/O removal of cyst ?Z98.890 - Other specified postprocedural states (ICD-10) H/O cardiac catheterization ?Z98.890 - Other specified postprocedural states (ICD-10) H/O tubal ligation ?Z98.51 - Tubal ligation status (ICD-10) Family History Mother Family history of stroke Family history of cancer Social History Highest level of school completed/degree received: high school graduate Little interest or pleasure in doing things: not at all Feeling down, depressed, or hopeless: not at all Exam Narrative Exam Narrative: Nurses note and vital signs reviewed and patient is not hypoxic. General: The patient appears well and in no apparent distress. Patient is resting comfortably on cart. Skin: Warm, dry, no pallor noted. There is no rash noted. Head: Normocephalic, atraumatic Eye: Normal conjunctiva, no drainage Ears, Nose, Mouth, and Throat: oral mucosa is moist. Nares patent. Cardiovascular: Regular Rate and Rhythm Respiratory: Patient is in no distress, no accessory muscle use, lungs are clear to auscultation, no wheezing, rales or rhonchi Back: non-tender GI: Soft and nontender Musculoskeletal: The patient has no evidence of calf tenderness, no pitting edema, symmetrical pulses noted bilaterally Neurological: A&O, normal speech Psychiatric: Cooperative Constitutional Vital Signs, click to edit/add: Last Vital Signs Temp 97.7 F 10/14/24 07:20 Pulse 90 10/14/24 07:20 Resp 18 10/14/24 07:20 BP 108/64 10/14/24 07:20 Pulse Ox 98 10/14/24 07:20 O2 Del Method Room Air 10/14/24 07:20 Course Vital Signs Vital signs: Vital Signs Temperature 97.7 F 10/14/24 07:20 Pulse Rate 90 10/14/24 07:20 Respiratory Rate 18 10/14/24 07:20 Blood Pressure 108/64 10/14/24 07:20 Pulse Oximetry 98 10/14/24 07:20 Oxygen Delivery Method Room Air 10/14/24 07:20 Temperature 97.7 F 10/14/24 07:20 Pulse Rate 90 10/14/24 07:20 Respiratory Rate 18 10/14/24 07:20 Blood Pressure 108/64 10/14/24 07:20 Pulse Oximetry 98 10/14/24 07:20 Oxygen Delivery Method Room Air 10/14/24 07:20 Medical Decision Making MDM Narrative Medical decision making narrative: She is not anemic or . Ultrasound shows no structural abnormalities. 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 Treatment diagnosis and follow-up were discussed with the patient. Differential Diagnosis Differential Diagnosis: Miscarriage, ectopic , uterine fibroid Lab Data Lab results reviewed: Yes I reviewed the patient's lab results Labs: Lab Results 10/14/24 Range/Units 07:53 WBC 11.9 H (4.0-11.0) 10^3/uL RBC 3.83 L (4.20-5.40) 10^6/uL Hgb 11.5 L (12.0-16.0) g/dL Hct 36.0 (36.0-48.0) % MCV 94.0 (81.0-99.0) fL MCH 30.0 (26.7-34.0) pg MCHC 31.9 (29.9-35.2) g/dL RDW 13.9 (11.0-15.0) % Plt Count 289 (150-450) 10^3/uL MPV 9.7 (9.5-13.5) fL Neut % (Auto) 69.4 (43.0-75.0) % Lymph % (Auto) 20.1 L (20.5-60.0) % [place] % (Auto) 6.0 (1.7-12.0) % Eos % (Auto) 3.2 (0.9-7.0) % Baso % (Auto) 0.9 (0.2-2.0) % Neut # (Auto) 8.3 H (1.4-6.5) 10^3/uL Lymph # (Auto) 2.4 (1.2-3.8) 10^3/uL [place] # (Auto) 0.7 (0.3-0.8) 10^3/uL Eos # (Auto) 0.4 (0.0-0.7) 10^3/uL Baso # (Auto) 0.1 (0.0-0.1) 10^3/uL Abs Immat Gran (auto) 0.05 H (0.00-0.03) 10^3/uL Imm/Tot Granulo (auto) 0.4 (0.0-0.5) % Sodium 139 (136-145) mmol/L Potassium 4.6 (3.5-5.1) mmol/L Chloride 105 (98-107) mmol/L Carbon Dioxide 28.2 (21.0-32.0) mmol/L Anion Gap 10.4 BUN 21.0 H (7.0-18.0) mg/dL Creatinine 1.27 H (0.55-1.02) mg/dL Est GFR ( Amer) 55 L (>=60 mL/min/1.73m^2) Est GFR (Non-Af Amer) 45 L (>=60 mL/min/1.73m^2) BUN/Creatinine Ratio 16.5 Glucose 161 H (74-106) mg/dL Calcium 8.8 (8.5-10.1) mg/dL Serum HCG, Qual Negative (NEGATIVE) Imaging Data Pelvic ultrasound: Radiologist's impression: ITS Impressions Transvaginal US 10/14/24 07:32 Impression: No acute process. Impression dictated by: Scott Callejas Jr., D.O. 10/14/2024 9:01 AM Dictation Location: [place] [address] Electronically authenticated by: [id number] Y Date: 10/14/2024 09:01 Discharge Plan Discharge Chief Complaint: Urogenital-Female Clinical Impression: Dysfunctional uterine bleeding Patient Disposition: Home, Self-Care Time of Disposition Decision: 09:13 Condition: Good Mode of Transportation: Private Vehicle Prescriptions / Home Meds: No Action clopidogrel [Plavix] 75 mg tablet 75 mg PO DAILY Qty: 30 0RF atorvastatin 40 mg tablet 40 mg PO DAILY Qty: 30 0RF gabapentin 300 mg capsule 600 mg PO TID olmesartan-hydrochlorothiazide 20-12.5 mg tablet 1 tab PO DAILY omeprazole 40 mg capsule,delayed release(DR/EC) 40 mg PO .BIDAC albuterol sulfate 90 mcg/actuation HFA aerosol inhaler 2 puff INHALATION Q4H PRN (Reason: shortness of breath or wheezing) cholecalciferol (vitamin D3) 50 mcg (2,000 unit) tablet 50 mcg PO DAILY lorazepam 1 mg tablet 1 mg PO TID PRN (Reason: anxiety) olanzapine 5 mg tablet 5 mg PO BID PRN (Reason: agitation) meclizine 25 mg tablet 25 mg PO TID PRN (Reason: dizziness) Qty: 14 0RF naltrexone 50 mg tablet 50 mg PO DAILY metoprolol succinate 50 mg tablet extended release 24 hr PO tiotropium bromide [Spiriva with HandiHaler] 18 mcg capsule, w/inhalation device INHALATION aspirin 81 mg tablet,delayed release (DR/EC) 81 mg PO DAILY bupropion HCl 300 mg tablet extended release 24 hr 300 mg PO DAILY hydroxyzine pamoate 25 mg capsule 75 mg PO TID PRN (Reason: anxiety) Fetzima 20 mg capsule,extended release 24 hr 20 mg PO DAILY Print Language: Guamanian Instructions: Abnormal (Dysfunctional) Uterine Bleeding (ED) Additional Instructions: Follow-up with your gynecology provider. Referrals: MILLIE MANDEL [Primary Care Provider, Family Practice] - 1 week
[2024-10-14 07:59] LABS: Hematocrit 36.0 % (36.0-48.0); Hemoglobin 11.5 g/dL (12.0-16.0); Immature Granulocytes Abs Auto 0.05 10^3/uL (0.00-0.03); Immature Granulocytes Pct Auto 0.4 % (0.0-0.5); Lymphocytes Absolute Auto 2.4 10^3/uL (1.2-3.8); Mean Corpuscular HGB Conc 31.9 g/dL (29.9-35.2); Mean Corpuscular Hemoglobin 30.0 pg (26.7-34.0); Mean Corpuscular Volume 94.0 fL (81.0-99.0); Platelet Count 289 10^3/uL (150-450); Red Blood Count 3.83 10^6/uL (4.20-5.40); White Blood Count 11.9 10^3/uL (4.0-11.0)
[2024-10-14 08:07] LABS: Anion Gap 10.4; Blood Urea Nitrogen 21.0 mg/dL (7.0-18.0); Calcium 8.8 mg/dL (8.5-10.1); Carbon Dioxide 28.2 mmol/L (21.0-32.0); Chloride 105 mmol/L (98-107); Estimated GFR (African America 55 (>=60 mL/min/1.73m^2); Estimated GFR (Non-African Ame 45 (>=60 mL/min/1.73m^2); Glucose 161 mg/dL (74-106); Potassium 4.6 mmol/L (3.5-5.1); Sodium 139 mmol/L (136-145)
[2024-10-14 09:15] VITALS: BP 101/62; PULSE 65; O2SAT 99
== END 2024-10-14 09:15 | disposition home or self-care (01) ==
PROVIDERS: Emergency Provider Emergency Medicine; PCP Nurse Practitioner Family
DX: N93.9 Abnormal uterine and vaginal bleeding, unspecified (principal)
CPT/HCPCS: 36415; 76830; 80048; 84703; 85025; 99284

== ENCOUNTER 2024-11-05 13:23 | Outpatient (OUT) | payer MEDICAID, SELFPAY ==
--- OUTSIDE RECORDS SUMMARY | 2024-11-05 13:27 | XMS_ITS | Encounter Summary ---
Author Organization [employer] Sys [employer] Address [id number] [address] [place] [address] Care Team Providers Care Cooling Tower Operator Name Role Phone Josette Mendoza ENGINEER-HOISTER Primary Care Provider Encounter Details Date Type Department Care Team (Late st Contact Info) Description 05/23/2023 Telephone [facility] [address] [place] [address] Francy Dewitt, VITA Social History Tobacco Use Types Packs/Day Years Used Date Smoking Tobacco: Every Day Cigarettes 1 28.7 Started: 1996 Smokeless Tobacco: Never Comments:using nicorette [...] Never 05/31/2020 How often do you attend confucianism or evangelical serv ices? Never 05/31/2020 Do you belong to any clubs o r organizations such as confucianism groups, unions, fraternal or athletic groups, or [...] Answer Date Recorded Total Score 0 05/31/2020 [facility] Occupat ional [facility] - Occupational Stress [...] things needed for daily living? No 05/31/2020 [place] Depression Scale Answer Date Recorded [place] Depression Scale Total 11 05/19/2019 The thought of harming myself has occurred to me . Never 05/19/2019 Childcare Answer Date Recorded Do problems getting child ca re make it difficult for you to work or study? No 05/31/2020 Employment Answer Date Recorded Do you need help finding a [facility] career center and/or a training [...] She Saw Dr Webster last week in [place] and he told her that she would be scheduled for this At [place] but she has not heard from anyone about when it is scheduled. Please call her about this. She also mentioned that she may want to follow up in [place] if possible. * Telephone Encounter - Ana [...] documented as of this encounter Care Teams Cooling Tower Operator Relationship Specialty Start Date End Date Josette Mendoza, ENGINEER-HOISTER [address] [facility], [place] [address] PCP - General Family Medicine 08/25/23 documented as of this encounter
--- OUTSIDE RECORDS SUMMARY | 2024-11-05 13:27 | XMS_ITS | Clinical Summary ---
Author Organization [employer] Address [id number] [address] [place] [address] Care Team Providers Care Reversal Print Inspector Name Role Phone Josette Mendoza APRN-DIRECTOR OF ACCOUNTING Primary Care Provider Allergies Active Allergy Reactions [...] (06/26/2020): Added automatically from request for surgery [id number] Obesity (BMI 35.0-39.9 without comorbidity) 06/04 Abnormal [...] on smoking cessation at least 4 minutes. Immunizations Immunization Administration Dates Next Due Influenza, [...] 1 28.7 Started: 1996 Smokeless Tobacco: Never Tobacco Cessation:Ready [...] Never 05/31/2020 How often do you attend pentecostalism or mosque serv ices? Never 05/31/2020 Do you belong to any clubs o r organizations such as pentecostalism groups, unions, fraternal or athletic groups, or [...] Answer Date Recorded Total Score 10 07/03/2023 [facility] of Occupat ional Health - Occupational Stress [...] things needed for daily living? No 05/31/2020 [place] Depression Scale Answer Date Recorded [place] Depression Scale Total 11 05/19/2019 The thought of harming myself has occurred to me . Never 05/19/2019 Childcare Answer Date Recorded Do problems getting child ca re make it difficult for you to work or study? No 05/31/2020 Employment Answer Date Recorded Do you need help finding a [facility] and/or a training program? No [...] a purpose and direction in my life. Michaeln gly Agree 05/31/2020 Comments No Sex and [...] Health Maintenance Due Date Last Done Comments Statin Use: Cardiovascular 1980 Tobacco Counseling 1980 Mammogram 06/25/2023 06/24/2022 Adult [...] b MAMM 1 YR us Mandie Rodriguez INSPECTOR AND UNLOADER-DIRECTOR OF ACCOUNTING IMG MAMMOGRAPHY ORDERABL ES Final Result * High risk HPV w/hannah (06/22/2022 3:17 AM EDT) Hpv specimen type ThinPrep 06/23/2022 3:18 AM EDT [facility] Hpv 16 Negative Negative^N egative 06/23/2022 2:33 PM EDT [facility] Hpv 18 Negative Negative^N egative 06/23/2022 2:33 PM EDT [facility] Other high risk hpv Negative Negative^N egative 06/23/2022 2:33 PM EDT [facility] Comment: HPV types 31,33,35,39,45,52,56,58,59,66 and 68 DNA were undetectable. THINP 06/22/2022 3:17 AM EDT 06/23/2022 3:20 AM EDT us Mandie Rodriguez INSPECTOR AND UNLOADER-DIRECTOR OF ACCOUNTING LAB BLOOD ORDERABLES Fin al Result [facility] [address] [facility] [place] [address] [facility] [address] [place] [address], [address] [place] [address] from Last 3 Months or Most Recently Relevant to Health Maintenance Insurance * Guarantor: Laura Arias Account Type Relation to Patient Date of Phone Billing Address Personal/Family Self 1980 [address] [place] [address] [facility] MEDICAID Advance Directives * Full Code (Latest [...] 10:27 PM 05/03/2019 10:38 AM Care Teams Reversal Print Inspector Relationship Specialty Start Date End Date Josette Mendoza, INSPECTOR AND UNLOADER-DIRECTOR OF ACCOUNTING [address] [place] [address] PCP - General Family Medicine 08/25/23
--- OUTSIDE RECORDS SUMMARY | 2024-11-05 13:27 | XMS_ITS | Encounter Summary ---
Author Organization [employer] Address [facility][id number] [address] [place] [address] Care Team Providers Care Food Safety Coordinator Name Role Phone Josette Mendoza COMMUNITY DIETITIAN-RISK ANALYST Primary Care Provider Reason for Visit * Reason Onset Date Comments Med Refill 07/01/2019 Encounter Details Date Type Department Care Team (Late st Contact Info) Description 07/01/2019 Refill [facility] [address] [facility] [address] [place] [address] Radha Nguyen, Hypertension affecting in first trimester Social History Tobacco Use Types Packs/Day Years Used Date Smoking Tobacco: Every Day Cigarettes 1 22.5 Started: 1996; Last attempted to quit: 09/11/2018 Smokeless Tobacco: Never Comments:using nicorette Alcohol Use Standard Drinks/Week Comments Not Currently 0 (1 standard drink = 0.6 oz pur e alcohol) pre preg 1-2 x month [place] Depression Scale Answer Date Recorded [place] Depression Scale Total 11 05/19/2019 The thought [...] and needs a refill to go to [facility] in [place]. I told her we would [...] documented as of this encounter Care Teams Food Safety Coordinator Relationship Specialty Start Date End Date Josette Mendoza APRN-CNP [address] [place] [address] PCP - General Family Medicine 08/25/23 documented as of this encounter
--- OUTSIDE RECORDS SUMMARY | 2024-11-05 13:27 | XMS_ITS | Encounter Summary ---
Author Organization [employer] Address [facility] [id number] [address] [place] [address] Care Team Providers Care Screw Machine Set Up Operator Tool Name Role Phone Josette Mendoza APRN-STATUS CONTROLLER Primary Care Provider Reason for Visit * Reason Comments Med Refill Encounter Details Date Type Department Care Team (Late st Contact Info) Description 10/29/2019 Refill [facility] [address] [facility] [place] [address] Boni Ogden MD [address] [place], [place] [id number] Social History Tobacco Use Types Packs/Day Years Used Date Smoking Tobacco: Every Day Cigarettes 0.5 22.5 Started: 1996; Last attempted to quit: 09/11/2018 Smokeless Tobacco: Never Comments:using nicorette Alcohol Use Standard Drinks/Week Comments Yes 0 (1 standard drink = 0.6 oz pur e alcohol) occassionally [place] Depression Scale Answer Date Recorded [place] Depression Scale Total 11 05/19/2019 The thought [...] documented as of this encounter Care Teams Screw Machine Set Up Operator Tool Relationship Specialty Start Date End Date Josette Mendoza, STEVE-STATUS CONTROLLER [address] [place] [id number] PCP - General Family Medicine 08/25/23 documented as of this encounter
--- OUTSIDE RECORDS SUMMARY | 2024-11-05 13:27 | XMS_ITS | Clinical Summary ---
Author Organization [facility] Address [address] [place] [address] Care Team Providers Care Geotechnician Name Role Phone Josette Mendoza CNP Primary Care Provider [phone] Allergies Active Allergy Reactions Criticality Noted Date Comments Ciprofibrate Swelling High 10/12/2018 Ciprofloxacin Other High 11/01/2012 Facial edema - per pt Metronidazole Other High 10/12/2018 Flu like s/s Facial edema - per pt Penicillins Other High 10/12/2018 Facial edema - per pt Medications aspirin 81 mg EC tablet 1 tablet Orally Once a day 4 Active atorvastatin (Lipitor) 40 mg tablet Take 40 mg by mouth in the morning. 4 Active cholecalciferol (Vitamin D-3) 50 MCG (1999) tablet Take by mouth in the morning. 4 Active clopidogrel (Plavix) 75 mg tablet Take 75 mg by mouth in the morning. 4 Active gabapentin (Neurontin) 600 mg tablet Take 600 mg by mouth in the morning, afternoon, and at bedtime. 3 Active OLANZapine (ZyPREXA) 5 mg tablet take 1 tablet by mouth three times a day if needed for AGITATION 4 Active olmesartan-hydr ochlorothiazide (BENIcar HCT) 20-12.5 mg tablet Take 1 tablet by mouth if needed. 4 Active omeprazole (PriLOSEC) [address] capsule Take 40 mg by mouth in the morning and at bedtime. Active buPROPion XL (Wellbutrin XL) 300 mg 24 hr tablet Take 300 mg by mouth in the morning. Active LORazepam (Ativan) 1 mg tablet Take 1 tablet by mouth every 8 (eight) hours if needed for anxiety. 4 Active albuterol 90 mcg/actuation inhaler Inhale 2 puffs every 6 (six) hours if needed for wheezing. Active levomilnacipran (Fetzima) 20 mg extended release capsule Take 40 mg by mouth in the morning. Active hydrOXYzine pamoate (Vistaril) 25 mg capsule Take 25 mg by mouth. 5 Active vilazodone (Viibryd) 10 mg tablet Take 10 mg by mouth with breakfast. 5 Active vilazodone (Viibryd) 20 mg tablet Take 20 mg by mouth in the morning. with food 5 Active metoprolol succinate XL (Toprol-XL) 50 mg 24 hr tabletIndicatio ns:Palpitations Take 1 tablet (50 mg) by mouth once daily as directed. Do not crush or chew. 90 tablet 3 5 06/12/19 26 Active ferrous sulfate 325 (65 Fe) MG tablet Take 325 mg by mouth with breakfast. 4 Active Active Problems Problem Noted Date Diagnosed Date SVT (supraventricular tachycardia) 08/06/2024 Palpitations 05/25/2024 NSTEMI (non-ST elevated myocardial infarction) [...] beta-hCG DVT prophylaxis using VTE protocols per [facility] GI protection Protonix Monitor labs and [...] (06/28/2023): Added automatically from request for surgery [id number] Assessment & Plan (05/24/2024 8:07 AM EDT): [...] Encounters Date Type Department Care Team Description 09/17/2024 Travel 08/06/2024 9:00 AM EDT Office Visit [facility] [address] [place] [address] Cornell Peng MD WPW (Juojf-Zdulfjkvk-Nnbt e syndrome) 08/06/2024 Orders Only [facility] [address] [place] [address] Norma Watson MA SVT (supraventricular tachycardia) from Last 3 Months Family History Medical [...] = 0.6 oz pur e alcohol) former [facility] Utilities Answer Date Recorded In the past 12 months has th e [employer], gas, oil, or water [facility] threatened to shut off services in your [...] any time in the past 12 m [facility], were you homeless or living in a long term (including now)? No 05/24/2024 Hunger Vital Sign Answer Date Recorded Within the past 12 months, y ou worried that your food would run out before you got the money to buy more. Never true 05/25/19 25 Ran Out of Food in the Last Year Not on file 05/24/2024 Comments Unknown Sex and Gender Information Value Date Recorded Sex Assigned at Not on file Legal Sex Female 9:56 PM EDT Gender Identity Not on file [...] 08/06/2024 8:54 AM EDT Plan of Treatment Upcoming Encounters Date Type Department Care Team (Latest Contact Info) Description 11/06/2024 10:00 AM EDT Hospital Encounter [facility] [address] [place] [address] Cornell Peng MD [address] [facility] [place] [address] SVT (supraventricular tachycardia) 11/06/2024 12:00 PM EDT - 11/06/2024 2:30 PM EDT Surgery [facility] [address] [place] [address] Cornell Peng MD [address] [place] [address] Electrophysiology procedure [25568 (CPT )] Health Maintenance Due Date Last Done Comments CT Colonography 1978 Colonoscopy 1978 Colorectal Cancer Screening 1978 FIT-DNA 1978 FIT 1978 FOBT 1978 Sigmoidoscopy 1978 Depression Screening 1990 Hepatitis B Vaccines (1 of 3 - 19+ 3-dose series) 1997 Pneumococcal Vaccine: Pediat rics (0 to 5 Years) and At-Risk Patients (6 to 64 Years) (1 of 2 - PCV) 1997 Pap Smear 1999 Cervical Cancer Screening 01/29/2008 HPV/Cotest 01/29/2008 COVID-19 Vaccine (1 - 2023-2 5 season) 2023 Mammogram 06/24/2024 06/24/2022 Influenza Vaccine (#1) 2024 01/29/2019 Zoster Vaccines (1 of 2) 01/29/2028 Adult [...] on patient's age to complete this topic Insurance * Guarantor: Laura Arias Account Type Relation to Patient Date of Phone Billing Address Personal/Family Self 1980 [address] [place] [address] [facility] MEDICAID Advance Directives * Full Code (Latest Code Status on File) Date Activated Date Inactivated Comments 05/24/2024 7:50 AM 05/25/2024 2:20 PM Care Teams Geotechnician Relationship Specialty Start Date End Date Josette Mendoza CNP [address] [place] [address] [place] [address] PCP - General Family Medicine 06/28/23
--- OUTSIDE RECORDS SUMMARY | 2024-11-05 13:27 | XMS_ITS | Encounter Summary ---
Author Organization [employer] Address [id number] [address] [place] [address] Care Team Providers Care Pill Coater Name Role Phone Josette Mendoza WAREHOUSE DIRECTOR-UKRAINIAN FOLK ARTS INSTRUCTOR Primary Care Provider Encounter Details Date Type Department Care Team (Late st Contact Info) Description 06/01/2023 Orders Only [facility] [address] [place] [address] Ana Luisa Brown CMA Abnormal CT scan [...] Never 05/31/2020 How often do you attend caodaism or congregational serv ices? Never 05/31/2020 Do you belong to any clubs o r organizations such as caodaism groups, unions, fraternal or athletic groups, or [...] Answer Date Recorded Total Score 0 05/31/2020 [facility] Occupat ional Health - Occupational [...] things needed for daily living? No 05/31/2020 [place] Depression Scale Answer Date Recorded [place] Depression Scale Total 11 05/19/2019 The thought of harming myself has occurred to me . Never 05/19/2019 Childcare Answer Date Recorded Do problems getting child ca re make it difficult for you to work or study? No 05/31/2020 Employment Answer Date Recorded Do you need help finding a [facility] career center and/or a training program? [...] documented as of this encounter Care Teams Pill Coater Relationship Specialty Start Date End Date Josette Mendoza, WAREHOUSE DIRECTOR-UKRAINIAN FOLK ARTS INSTRUCTOR [address] [place] [address] PCP - General Family Medicine 08/25/23 documented as of this encounter
--- OUTSIDE RECORDS SUMMARY | 2024-11-05 13:27 | XMS_ITS | Clinical Summary ---
Author Organization [facility] Address [address] [place] [address] Care Team Providers Care Medical Administrative Name Role Phone Unallocated, Noms Provider Primary Care Provi matthew Josette Mendoza MD Unavailable [phone] Social History Tobacco Use Types Packs/Day Years Used Date Smoking Tobacco: Never Assessed Comments Unknown Sex and Gender Information Value Date Recorded Sex Assigned at Not on file Legal Sex Female 6:47 PM EDT Gender Identity Not on file Sexual Orientation Not on file Plan of Treatment Health Maintenance Due Date Last Done Comments CT Colonography 1978 Colonoscopy 1978 Colorectal Cancer Screening 1978 FIT-DNA 1978 FIT 1978 FOBT 1978 Sigmoidoscopy 1978 Pap Smear 1999 Cervical Cancer Screening 01/29/2008 HPV/Cotest 01/29/2008 Mammogram 2018 Influenza Vaccine (#1) 2024 Insurance * Guarantor: Laura Ruelas Account Type Relation to Patient Date of Phone Billing Address Personal/Family Self 1980 [address] [place] [address] [employer] [place]ICA[place] Care Teams Medical Administrative Relationship Specialty Start Date End Date Unallocated, Noms Provider, [place] [address] PCP - General Family Medicine 06/21/24 Josette Mendoza MD [address] [place] [id number] Referring Physician Family Medicine 06/21/24
--- OUTSIDE RECORDS SUMMARY | 2024-11-05 13:27 | XMS_ITS | Encounter Summary ---
Author Organization [facility] Address [address] [place] [address] Care Team Providers Care Second Rigger Name Role Phone Unallocated, Noms Provider Primary Care Provi matthew Josette Mendoza MD Unavailable [phone] Encounter Details Date Type Department Care Team (Late st Contact Info) Description 05/31/2023 Clinisync Result Encounter [facility] Department Unsolicited Stephanie Webster MD [address], [place] [address] Social History Tobacco Use Types Packs/Day Years [...] Procedure Name Priority Date/Time Associated Diagnosis Comments SEGMENTAL BLOOD PRESSURE 05/31/2023 1:57 PM EDT documented in this encounter Results * SEGMENTAL BLOOD PRESSURE (05/31/2023 1:57 PM EDT) Anatomical Region Laterality Modality Radiographic Jillian ging 05/31/2023 1:57 PM EDT Narrative 05/31/2023 11:13 PM EDT The [address] [address] Cardiology Report Signed Patient: LAURA THAPA MR#: [id number] : 1980 Acct:[id number] Age/Sex: 43 / F ADM Date: 05/31/23 Loc: CARD Attending Dr: Stephanie Webster M.D. Ordering Physician: Stephanie Webster M.D. Date of Service: 05/31/23 Procedure(s): CA segmental UE or LE BISI Accession Number(s): [id number] cc: JOSETTE MENDOZA ; Stephanie Webster M.D. [facility] Test Date: 2023-05-31 Pat Name: LAURA THAPA Department: Room: - Gender: Female Plating And Point Assembly Supervisor: Luisa Valverde : 1980 Requested By: 1894 Order Number: [id number] Reading MD: PRAVIN NAVA Interpretive Statements Monophasic doppler waveforms in the RLE. PVR waveforms with delayed upstroke, blunted amplitude and loss of dicrotic notch Right: - significant pressure gradient between the thigh and calf cuff - abnormal STEVEN Left: - no significant pressure gradient between cuffs - abnormal STEVEN Impression: - significant right femoropopliteal arterial disease with severe hemodynamic impairment of the right lower extremity at rest (right STEVEN 0.42) - significant left lower extremity arterial disease with mild hemodynamic impairment of the left lower extremity at rest (left STEVEN 0.84) Electronically Signed On 05-31-2023 23:12:54 EDT by PRAVIN NAVA Dictated By: Pravin Nava D.O. Signed By: 05/31/23231205/31/23 231 DD/ 1357 TD/TT: Project Surveyor: Procedure Note Radiology, Radiologist, MD - 06/01/2023 [place] [address] Cardiology Report Signed Patient: ETIENNE THAPA#: [id number] : 1980Acct:[id number] Age/Sex: 43 / FADM Date: 05/31/23 Loc: CARD Attending Dr: Stephanie Webster M.D. Ordering Physician: Stephanie Webster M.D. Date of Service: 05/31/23 Procedure(s): CA segmental UE or LE BISI Accession Number(s): [id number] cc: JOSETTE MENDOZA ; Stephanie Webster M.D. [facility] Test Date: 2023-05-31 Pat Name: LAURA THAPA Department: Room: - Gender: Female Plating And Point Assembly Supervisor: Luisa Valverde : 1980 Requested By: 1892 Order Number: [id number] Reading MD: PRAVIN NAVA Interpretive Statements Monophasic doppler waveforms in the RLE. PVR waveforms with delayed upstroke, blunted amplitude and loss ofdicrotic notch Right: - significant pressure gradient between the thigh and calf cuff - abnormal STEVEN Left: - no significant pressure gradient between cuffs - abnormal STEVEN Impression: - significant right femoropopliteal arterial disease with severehemodynamic impairment of the right lower extremity at rest (right STEVEN 0.42) - significant left lower extremity arterial disease with mild hemodynamic impairment of the left lower extremity at rest (left STEVEN 0.84) Electronically Signed On 05-31-2023 23:12:54 EDT by PRAVIN NAVA Dictated By: Pravin Nava D.O. Signed By:05/31/23231205/31/232312 DD/ 1357 TD/TT: Project Surveyor: us Stephanie Webster MD IMG XR PROCEDURES Final Resu lt documented in this encounter Visit Diagnoses Not on filedocumented in this encounter Care Teams Second Rigger Relationship Specialty Start Date End Date Unallocated, Noms ProviderMD [address] [place] [id number] PCP - General Family Medicine 06/21/24 Josette Mendoza MD [address] [place] [phone] Referring Physician Family Medicine 06/21/24 documented as of this encounter
--- OUTSIDE RECORDS SUMMARY | 2024-11-05 13:27 | XMS_ITS | Encounter Summary ---
Author Organization [employer] Address [id number] [address] [place] [address] Care Team Providers Care Director Of Social Services Name Role Phone Josette Mendoza CLUTCH REBUILDER-HEALTH SCIENCES DEPARTMENT CHAIR Primary Care Provider Encounter Details Date Type Department Care Team (Late st Contact Info) Description 11/29/2023 Orders Only [facility] [address] [facility] [address] [place] [address] Triny Blanco CMA Social History Tobacco Use [...] Never 05/31/2020 How often do you attend sikhism or church serv ices? Never 05/31/2020 Do you belong to any clubs o r organizations such as sikhism groups, unions, fraternal or athletic groups, or [...] Answer Date Recorded Total Score 10 07/03/2023 [facility] of Occupat ional Health - [...] things needed for daily living? No 05/31/2020 [place] Depression Scale Answer Date Recorded [place] Depression Scale Total 11 05/19/2019 The thought of harming myself has occurred to me . Never 05/19/2019 Childcare Answer Date Recorded Do problems getting child ca re make it difficult for you to work or study? No 05/31/2020 Employment Answer Date Recorded Do you need help finding a [facility] career center and/or a training [...] documented as of this encounter Care Teams Director Of Social Services Relationship Specialty Start Date End Date Josette Mendoza, STEVE-HEALTH SCIENCES DEPARTMENT CHAIR [address] [place] [address] PCP - General Family Medicine 08/25/23 documented as of this encounter
--- OUTSIDE RECORDS SUMMARY | 2024-11-05 13:27 | XMS_ITS | Encounter Summary ---
Author Organization [email or web address] Address [id number] [address] [place] [address] Care Team Providers Care Senior Interaction Designer Name Role Phone Josette Mendoza ENVIRONMENTAL PROTECTION GEOLOGIST-TOOLS PROGRAMMER Primary Care Provider Encounter Details Date Type Department Care Team (Late st Contact Info) Description 08/30/2023 Orders Only [facility] [address] [place] [address] Stephanie Websetr MD [address], [facility] [address] [place] [address] Social History Tobacco Use Types Packs/Day Years [...] Never 05/31/2020 How often do you attend presybeterian or anabaptism serv ices? Never 05/31/2020 Do you belong to any clubs o r organizations such as presybeterian groups, unions, fraternal or athletic groups, or [...] Answer Date Recorded Total Score 10 07/03/2023 [facility] - Occupational Stress Questionnaire Answer Date Recorded [...] things needed for daily living? No 05/31/2020 [place] Depression Scale Answer Date Recorded [place] Depression Scale Total 11 05/19/2019 The thought of harming myself has occurred to me . Never 05/19/2019 Childcare Answer Date Recorded Do problems getting child ca re make it difficult for you to work or study? No 05/31/2020 Employment Answer Date Recorded Do you need help finding a [facility] career center and/or a training program? No [...] documented as of this encounter Care Teams Senior Interaction Designer Relationship Specialty Start Date End Date Josette Mendoza, ENVIRONMENTAL PROTECTION GEOLOGIST-TOOLS PROGRAMMER [address] [place] [address] PCP - General Family Medicine 08/25/23 documented as of this encounter
[2024-11-05 14:26] LABS: Anion Gap 11.9; Blood Urea Nitrogen 9.0 mg/dL (7.0-18.0); Calcium 9.2 mg/dL (8.5-10.1); Carbon Dioxide 27.6 mmol/L (21.0-32.0); Chloride 104 mmol/L (98-107); Estimated GFR (African America >60 (>=60 mL/min/1.73m^2); Estimated GFR (Non-African Ame 55 (>=60 mL/min/1.73m^2); Glucose 95 mg/dL (74-106); Potassium 4.5 mmol/L (3.5-5.1); Sodium 139 mmol/L (136-145)
[2024-11-05 15:42] LABS: Hematocrit 33.1 % (36.0-48.0); Hemoglobin 10.6 g/dL (12.0-16.0); Immature Granulocytes Abs Auto 0.05 10^3/uL (0.00-0.03); Immature Granulocytes Pct Auto 0.5 % (0.0-0.5); Lymphocytes Absolute Auto 1.7 10^3/uL (1.2-3.8); Mean Corpuscular HGB Conc 32.0 g/dL (29.9-35.2); Mean Corpuscular Hemoglobin 29.2 pg (26.7-34.0); Mean Corpuscular Volume 91.2 fL (81.0-99.0); Platelet Count 292 10^3/uL (150-450); Red Blood Count 3.63 10^6/uL (4.20-5.40); White Blood Count 10.0 10^3/uL (4.0-11.0)
== END 2024-11-05 13:24 | disposition home or self-care (01) ==
LOC: LAB 13:25
PROVIDERS: PCP Nurse Practitioner Family; Visit Provider Internal Medicine Cardiovascular Disease
DX: I45.6 Pre-excitation syndrome (principal)
CPT/HCPCS: 36415; 80048; 85025

== ENCOUNTER 2024-11-12 13:01 | Emergency (ER) | payer MEDICAID, SELFPAY ==
--- OUTSIDE RECORDS SUMMARY | 2023-11-01 06:15 | XMS_ITS ---
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 SECURITY POLICE Comp Exam. * Medical History: Objective: * Vitals: Assessment: Plan: * Treatment: * Billing Information: * Visit Code: * Procedure Codes: * Electronic signature of Matt Pa DDS on 11/12/2024 at 01:12 PM EDT Sign off status: Pending * Provider: Tera Pa DDS Date: 11/01/2023 Generated for Paris vasquez/Farzaneh/Adeolaitting on: 11/12/2024 01:12 PM EDT
--- OUTSIDE RECORDS SUMMARY | 2023-11-02 08:45 | XMS_ITS ---
Author Organization [facility] vices Address [address] [place], [place] [address], [place] [phone] Care Team Providers Care Fire Extinguisher Technician Name Role Phone Maria Fernanda Pa Unavailable [phone] REASON FOR VISIT SUBSTATION OPERATOR CHIEF Comp Exam Encounters Encounter Location Date Provider Diagnosis Dental Main [address] [place], [place] [phone] 11/02/2023 Maria Fernanda Pa Plan Of Treatment No Information Progress Notes * ARIASVaishaliOB:1980 ([age] yo F)Acc No.[id number]:11/02/2023 Patient: Laura COVARRUBIAS Provider: Tera Pa DDS :1980 A ge:43 Y S ex:Female Date:11/02/2023 Address:[address], [address] [place], [id number] Subjective: * Chief Complaints: * 1 . 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 * Medical History: Objective: * Vitals: Assessment: Plan: * Treatment: * Billing Information: * Visit Code: * Procedure Codes: * Electronic signature of Matt Pa DDS on 11/12/2024 at 01:12 PM EDT Sign off status: Pending * Provider: Tera Pa DDS Date: 11/02/2023 Generated for Paris vasquez/Farzaneh/Adeolaitting on: 11/12/2024 01:12 PM EDT
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
--- OUTSIDE RECORDS SUMMARY | 2024-08-28 09:35 | XMS_ITS ---
Author Organization [facility] in [place] Address [address] [place] [address] Care Team Providers Care Arcgis Developer Name Role Phone JOSETTE MENDOZA CNP Primary Care Provider [phone] Josette Mendoza [phone] REASON FOR VISIT b/p check Encounters Encounter Location Date Provider Diagnosis [facility] [address] [place] [address] 08/28/2024 Josette Mendoza Plan Of Treatment Next Appt Details Provider Name:Josette williamson, 12/11/2024 09:00:00 AM, [address] [place], [address], Progress Notes * ALANIS Laura ADOB:1980 (44 yo F)Acc No.[id number]:08/28/2024 Patient: Laura COVARRUBIAS :1980 A ge:44 Y S ex:Female Address:[address] [place], [address] Subjective: * Chief Complaints: * B /p check * Medical History: * Surgical History: * Hospitalization/Major Diagno stic Procedure: * Medications: Objective: * Vitals: * Physical Examination: Assessment: Plan: * Treatment: * Procedure Codes: * true * Date: Generated for Printi ng/Faxing/eTransmitting on: 0 11/12/2024 01:11 PM EDT
--- OUTSIDE RECORDS SUMMARY | 2024-09-02 04:50 | XMS_ITS ---
Author Organization [facility] in [place] Address [address] [place] [address] Care Team Providers Care Laminating Machine Operator Helper Name Role Phone JOSETTE MENDOZA CNP Primary Care Provider [phone] Josette Mendoza Unavailable [phone] REASON FOR VISIT omeprazole Encounters Encounter Location Date Provider Diagnosis [facility] [address] [place] [address] 09/02/2024 Josette Mendoza Plan Of Treatment Next Appt Details Provider Name:Josette williamson, 12/11/2024 09:00:00 AM, [address] [place], [address], Progress Notes * Laura ARIAS ADOB:1980 (44 yo F)Acc No.[id number]:09/02/2024 Patient: Laura COVARRUBIAS :1980 A ge:44 Y S ex:Female Address:[address] [place], [address] * true * Date: Generated for Paris vasquez/Farzaneh/eTransmitting on: 0 11/12/2024 01:12 PM EDT
--- OUTSIDE RECORDS SUMMARY | 2024-09-16 05:55 | XMS_ITS ---
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 Name Role Phone JOSETTE MENDOZA CNP Primary Care Provider [phone] Josette Mendoza Unavailable [phone] REASON FOR VISIT ER Encounters Encounter Location Date Provider Diagnosis [facility] [address] [place] [address] 09/16/2024 Josette Mendoza Plan Of Treatment Next Appt Details Provider Name:Josette williamson, 12/11/2024 09:00:00 AM, [address] [place], [address], Progress Notes * Laura ARIAS ADOB:1980 (44 yo F)Acc No.[id number]:09/16/2024 Patient: Laura COVARRUBIAS :1980 A ge:44 Y S ex:Female Address:[address] [place], [address] * true * Date: Generated for Paris vasquez/Laurag/eTransmitting on: 0 11/12/2024 01:12 PM EDT
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
[2024-11-12 13:11] VITALS: BP 98/59; PULSE 75; TEMP 36.6; O2SAT 97; BMI 38.7
--- OUTSIDE RECORDS SUMMARY | 2024-11-12 13:12 | XMS_ITS | Clinical Summary ---
Author Organization [facility] Address [address] [place] [address] Care Team Providers Care Floral Designer Salesperson Name Role Phone Josette Mendoza CNP Primary Care Provider [phone] Allergies Active Allergy Reactions Criticality Noted Date [...] beta-hCG DVT prophylaxis using VTE protocols per [facility] GI protection Protonix Monitor labs [...] (06/28/2023): Added automatically from request for surgery [id number] Assessment & Plan (05/24/2024 8:07 AM EDT): [...] Type Department Care Team Description 09/17/2024 Travel from Last 3 Months Family History [...] = 0.6 oz pur e alcohol) former [facility] Utilities Answer Date Recorded In the past 12 months has th e [employer], oil, or water [employer] threatened to shut off services in your [...] any time in the past 12 m [facility], were you homeless or living in a fpc (including now)? No 05/24/2024 Hunger Vital Sign [...] 08/06/2024 8:54 AM EDT Plan of Treatment Health Maintenance Due Date [...] Cervical Cancer Screening 01/29/2008 HPV/Cotest 01/29/2008 Mammogram 06/24/2024 06/24/2022 COVID-19 Vaccine ( - 2023-2 5 season) 2024 Influenza Vaccine (#1) 2024 01/29/2019 Zoster Vaccines [...] Address Personal/Family Self 1980 [address] [place] [address] [facility] MEDICAID Advance Directives * Full Code (Latest Code Status on File) Date Activated Date Inactivated Comments 05/24/2024 7:50 AM 05/25/2024 2:20 PM Care Teams Floral Designer Salesperson Relationship Specialty Start Date End Date Josette Mendoza CNP [address] [place] [address], [place] [address] PCP - General Family Medicine 06/28/23
--- OUTSIDE RECORDS SUMMARY | 2024-11-12 13:12 | XMS_ITS | Encounter Summary ---
Author Organization [employer] Address [id number] [address] [place] [address] Care Team Providers Care Supervisor Coating Name Role Phone Josette Mendoza FORECLOSURE CLERK-INFANT AND TODDLER TEACHER Primary Care Provider Encounter Details Date Type Department Care Team (Late st Contact Info) Description 06/01/2023 Orders Only [facility] [address] [place] [address] Ana Luisa Brown CMA Abnormal CT scan [...] Recorded Total Score 0 05/31/2020 [facility] of Occupat ional Health - [...] things needed for daily living? No 05/31/2020 [place] Depression Scale Answer Date Recorded [place] Depression Scale Total 11 05/19/2019 The thought of harming myself has occurred to me . Never 05/19/2019 Childcare Answer Date Recorded Do problems getting child ca re make it difficult for you to work or study? No 05/31/2020 Employment Answer Date Recorded Do you need help finding a [facility] career center and/or a [...] documented as of this encounter Care Teams Supervisor Coating Relationship Specialty Start Date End Date Josette Mendoza, FORECLOSURE CLERK-INFANT AND TODDLER TEACHER [address] [place] [address] PCP - General Family Medicine 08/25/23 documented as of this encounter
--- OUTSIDE RECORDS SUMMARY | 2024-11-12 13:12 | XMS_ITS | Encounter Summary ---
Author Organization [employer] Address [id number] [address] [place] [address] Care Team Providers Care Fish Culturist Name Role Phone Josette Mendoza DIE TRY OUT WORKER STAMPING-PACKER INSULATION Primary Care Provider Encounter Details Date Type Department Care Team (Late st Contact Info) Description 11/29/2023 Orders Only [facility] [address] [facility] [address] [place] [address] Triny Blanco CMA Social History Tobacco Use [...] Never 05/31/2020 How often do you attend cheondoism or sikhism serv ices? Never 05/31/2020 Do you belong to any clubs o r organizations such as cheondoism groups, unions, fraternal or athletic groups, or [...] Answer Date Recorded Total Score 10 07/03/2023 [facility] of Occupat ional Health - Occupational Stress [...] things needed for daily living? No 05/31/2020 [place] Depression Scale Answer Date Recorded [place] Depression Scale Total 11 05/19/2019 The thought of harming myself has occurred to me . Never 05/19/2019 Childcare Answer Date Recorded Do problems getting child ca re make it difficult for you to work or study? No 05/31/2020 Employment Answer Date Recorded Do you need help finding a [facility] career center and/or a training program? No [...] documented as of this encounter Care Teams Fish Culturist Relationship Specialty Start Date End Date Josette Mendoza, STEVE-PACKER INSULATION [address] [place] [phone] PCP - General Family Medicine 08/25/23 documented as of this encounter
--- OUTSIDE RECORDS SUMMARY | 2024-11-12 13:12 | XMS_ITS | Clinical Summary ---
Author Organization [employer] Sys tem Address [id number] [address] [place] [address] Care Team Providers Care Rug Weaver Name Role Phone Josette Mendoza APRN-CHEMICAL ENGINEERING TEACHER Primary Care Provider Allergies Active Allergy Reactions [...] (06/26/2020): Added automatically from request for surgery [id number] Obesity (BMI 35.0-39.9 without comorbidity) 06/04 Abnormal [...] Never 05/31/2020 How often do you attend scientologist or lutheran serv ices? Never 05/31/2020 Do you belong to any clubs o r organizations such as scientologist groups, unions, fraternal or athletic groups, or [...] Answer Date Recorded Total Score 10 07/03/[address] [facility] [place] [facility] - Occupational Stress [...] needed for daily living? No 05/31/2020 [place] Depression Scale Answer Date Recorded [place] Depression Scale Total 11 05/19/2019 The thought of harming myself has occurred to me . Never 05/19/2019 Childcare Answer Date Recorded Do problems getting child ca re make it difficult for you to work or study? No 05/31/2020 Employment Answer Date Recorded Do you need help finding a [facility] and/or a training program? No [...] b MAMM 1 YR us Mandie Rodriguez INFORMATICA DEVELOPER-CHEMICAL ENGINEERING TEACHER IMG MAMMOGRAPHY ORDERABL ES Final Result * High risk HPV w/hannah (06/22/2022 3:17 AM EDT) Hpv specimen type ThinPrep 06/23/2022 3:18 AM EDT [facility] Hpv 16 Negative Negative^N egative 06/23/2022 2:33 PM EDT [facility] Hpv 18 Negative Negative^N egative 06/23/2022 2:33 PM EDT [facility] Other high risk hpv Negative Negative^N egative 06/23/2022 2:33 PM EDT [facility] Comment: HPV types 31,33,35,39,45,52,56,58,59,66 and 68 DNA were undetectable. THINP 06/22/2022 3:17 AM EDT 06/23/2022 3:20 AM EDT us Mandie Rodriguez INFORMATICA DEVELOPER-CHEMICAL ENGINEERING TEACHER LAB BLOOD ORDERABLES Fin al Result [facility] [address] [facility] [place] [address] [facility] [address] [place] [address], [address] [place] [address] from Last 3 Months or Most Recently Relevant to Health Maintenance Insurance * Guarantor: Laura Arias Account Type Relation to Patient Date of Phone Billing Address Personal/Family Self 1980 [address] [place] [address] [facility] MEDICAID Advance Directives * Full Code (Latest [...] 10:27 PM 05/03/2019 10:38 AM Care Teams Rug Weaver Relationship Specialty Start Date End Date Josette Mendoza, INFORMATICA DEVELOPER-CHEMICAL ENGINEERING TEACHER [address] [place] [address] PCP - General Family Medicine 08/25/23
--- OUTSIDE RECORDS SUMMARY | 2024-11-12 13:12 | XMS_ITS | Encounter Summary ---
Author Organization [employer] Address [id number] [address] [place] [address] Care Team Providers Care Customer Resource Specialist Name Role Phone Josette Mendoza SWITCHBOX ASSEMBLER-INFORMATION LEAD Primary Care Provider Reason for Visit * Reason Onset Date Comments Med Refill 07/01/2019 Encounter Details Date Type Department Care Team (Late st Contact Info) Description 07/01/2019 Refill [facility] [address] [facility] [address] [place] [address] Radha Nguyen, Hypertension affecting in first trimester Social History Tobacco Use Types Packs/Day Years Used Date Smoking Tobacco: Every Day Cigarettes 1 22.5 Started: 1996; Last attempted to quit: 09/11/2018 Smokeless Tobacco: Never Comments:using nicorette Alcohol Use Standard Drinks/Week Comments Not Currently 0 (1 standard drink = 0.6 oz pur e alcohol) pre preg 1-2 x month [place] Depression Scale Answer Date Recorded [place] Depression Scale Total 11 05/19/2019 The thought [...] and needs a refill to go to [facility] in [place]. I told her we would call with [...] documented as of this encounter Care Teams Customer Resource Specialist Relationship Specialty Start Date End Date Josette Mendoza APRN-CNP [address] [place] [address] PCP - General Family Medicine 08/25/23 documented as of this encounter
--- OUTSIDE RECORDS SUMMARY | 2024-11-12 13:12 | XMS_ITS | Encounter Summary ---
Author Organization [employer] Sys [employer] Address [id number] [address] [place] [address] Care Team Providers Care Leather Stamper Name Role Phone Josette Mendoza APRN-PATHOLOGIST Primary Care Provider Reason for Visit * Reason Comments Med Refill Encounter Details Date Type Department Care Team (Late st Contact Info) Description 10/29/2019 Refill [facility] [address] [place] [address] Boni Ogden MD [address] [place], [place] [id number] Social History Tobacco Use Types Packs/Day Years Used Date Smoking Tobacco: Every Day Cigarettes 0.5 22.5 Started: 1996; Last attempted to quit: 09/11/2018 Smokeless Tobacco: Never Comments:using nicorette Alcohol Use Standard Drinks/Week Comments Yes 0 (1 standard drink = 0.6 oz pur e alcohol) occassionally [place] Depression Scale Answer Date Recorded [place] Depression Scale Total 11 05/19/2019 The thought [...] documented as of this encounter Care Teams Leather Stamper Relationship Specialty Start Date End Date Josette Mendoza, STEVE-PATHOLOGIST [address] [place] [id number] PCP - General Family Medicine 08/25/23 documented as of this encounter
--- OUTSIDE RECORDS SUMMARY | 2024-11-12 13:12 | XMS_ITS | Encounter Summary ---
Author Organization [employer] Sys [employer] Address [id number] [address] [place] [address] Care Team Providers Care Waiver Analyst Name Role Phone Josette Mendoza TRACK REPAIR SUPERVISOR-GASKET SUPERVISOR Primary Care Provider Encounter Details Date Type Department Care Team (Late st Contact Info) Description 08/30/2023 Orders Only [facility] [address] [place] [address] Stephanie Webster MD [address], [facility] [address] [place] [address] Social History Tobacco Use Types Packs/Day Years [...] Never 05/31/2020 How often do you attend religious or tenriism serv ices? Never 05/31/2020 Do you belong to any clubs o r organizations such as religious groups, unions, fraternal or athletic groups, or [...] Answer Date Recorded Total Score 10 07/03/2023 [facility] Occupational Stress Questionnaire Answer Date Recorded [...] things needed for daily living? No 05/31/2020 [place] Depression Scale Answer Date Recorded [place] Depression Scale Total 11 05/19/2019 The thought of harming myself has occurred to me . Never 05/19/2019 Childcare Answer Date Recorded Do problems getting child ca re make it difficult for you to work or study? No 05/31/2020 Employment Answer Date Recorded [facility] you [facility] help [facility] and/or a training program? No [...] documented as of this encounter Care Teams Waiver Analyst Relationship Specialty Start Date End Date Josette Mendoza, TRACK REPAIR SUPERVISOR-GASKET SUPERVISOR [address] [place] [address] PCP - General Family Medicine 08/25/23 documented as of this encounter
--- OUTSIDE RECORDS SUMMARY | 2024-11-12 13:12 | XMS_ITS | Patient Health Record ---
Author Organization [facility] in [place] Address [address] [place] [address] Care Team Providers Care Head Worker Name Role Phone JOSETTE MANDEL CNP Primary Care Provider Ga Villeda Unavailable [phone] Noble Mendez Unavailable [phone] Josette Mandel Unavailable [phone] Allergies Allergen (clinical drug ingredient) Drug/Non Drug [...] 10:06:42 AM Interpretation: Performing Lab: Notes/Report: [facility] , CTX-M NOT APPLICABLE NOT DETECTE [...] DETECTE Performing Lab: see note ML - [facility] LB CBC AUTO DIFF Reviewed date:02/13/2024 11:41:33 AM Interpretation: Performing Lab: Notes/Report: [facility] , White Blood Count 7.6 4.0-11.0 10 [...] 3/uL Performing Lab: see note ML - [facility] LB INFLUENZA A AND B AG Reviewed date:02/13/2024 11:41:33 AM Interpretation: Performing Lab: Notes/Report: [facility] , Influenza Virus A Antigen Negative [...] test. Performing Lab: see note ML - [facility] LB LACTATE or LACTIC ACID Reviewed date:02/13/2024 11:41:33 AM Interpretation: Performing Lab: Notes/Report: [facility] , Lactate/Lactic Acid 1.4 0.4-2.0 mmol/L Performing Lab: see note [facility] LB URINE MICROSCOPIC ONLY Reviewed date:02/13/2024 11:41:33 AM Interpretation: Performing Lab: Notes/Report: [facility] , WBC Urine 2-5 NONE SEEN #/HPF RBC Urine 2-5 0-2 #/HPF Bacteria Urine SMALL NONE SEEN #/HPF Mucus Urine NONE SEEN NONE SEEN Squamous Epithelial Cell Urine FEW NONE/RARE #/LPF Crystals Seen? None Seen None Seen #/HPF Cast Seen? NONE SEEN NONE SEEN #/LPF Urine Culture Indicated YES Performing Lab: see note ML - [facility] LB Venous Blood Gas Reviewed date:02/13/2024 11:41:33 AM Interpretation: Performing Lab: Notes/Report: [facility] , pH VBG 7.294 7.330-7.430 PCO2 VBG 49.5 40.0-52.0 mmHg Performing Lab: see note - [facility] LB SARS-CoV-2 Ag* Reviewed date:02/13/2024 11:41:33 AM Interpretation: Performing Lab: Notes/Report: [facility] , SARS-CoV-2 Ag NEGATIVE NEGATIVE This [...] sooner. Performing Lab: see note ML - [facility] LB Urine Culture, Routine Reviewed date:02/15/2024 09:51:53 AM Interpretation: Performing Lab: Notes/Report: [facility] , Urine Culture, Routine See Below For Report Urine Culture, Routine Urine Culture, Routine Mixed urogenital carmelina Urine Culture, Routine Urine Culture, Routine Less than 10,000 colonies/mL Urine Culture, Routine Urine Culture, Routine Performed at: [facility] Urine Culture, Routine Urine Culture, Routine [address], [place] [id number] Urine Culture, Routine Urine Culture, Routine Head Worker: Geovani So PhD, Phone: [phone] Urine Culture, Routine Performing Lab: see note - [facility] LB SEE REPORT - Texture Artist Id information not found for OBX-specific dog breeder legend ECG 12 lead Reviewed date:02/15/2024 09:51:53 AM Interpretation: Performing Lab: Notes/Report: Source Facility: [facility] [place] [address] [place] [address] Electrocardiograph Report Signed Patient: SHAHLA ARIAS MR#: [id number] : 1980 Acct:[id number] Age/Sex: 44 / F ADM Date: 02/12/24 Loc: MS 218-[address]: Pat Mendez M.D. Ordering Physician: Annabelle Zhou Date of Service: 02/12/24 Procedure(s): ECG 12 lead Accession Number(s): [id number] cc: [facility] Test Date: 2024-02-12 Pat Name: SHAHLA ARIAS Department: Room: [facility] Gender: Female Director Software Development: : 1980 Requested By: JOSETTE MANDEL Order Number: [id number] Reading MD: PAT MENDEZ Measurements Intervals [place] Rate: 79 P: 70 SC: 138 QRS: 34 QRSD: 106 T: 221 [...] By: Pat Mendez M.D. Signed By: 02/15/24 0801 DD/ 1654 TD/TT: Adaptive Physical Education Teacher: [place] [address] Electrocardiograph Report Signed Patient: SHAHLA ARIAS MR#: [id number] : 1980 Acct:[id number] Age/Sex: 44 / F ADM Date: 02/12/24 Loc: MS 218- Attending Dr: Zoe Mendez M.D. Ordering Physician: Annabelle Zhou Date of Service: 02/12/24 Procedure(s): ECG 12 lead Accession Number(s): [id number] cc: [facility] Test Date: 2024-02-12 Pat Name: SHAHLA ARIAS Department: 21 Room: [facility] Gender: Female Director Software Development: : 1980 Requested By: JOSETTE MANDEL Order Number: [id number] Reading : PAT MENDEZ Measurements Intervals [place] Rate: 79 P: 70 SC: 138 QRS: 34 QRSD: 106 T: 221 [...] M.D. Signed By: 02/15/24 0801 DD/ TD/TT: Adaptive Physical Education Teacher: XR chest 1V Reviewed date:02/13/2024 11:41:33 AM Interpretation: Performing Lab: Notes/Report: Source Facility: [place] [address] XRay Report Signed Patient: SHAHLA ARIAS MR#: [id number] : 1980 Acct:[id number] Age/Sex: 44 / F ADM Date: 02/12/24 Loc: ER Attending Dr: Ordering Physician: Annabelle Zhou Date of Service: 02/12/24 Procedure(s): XR chest 1V Accession Number(s): [id number] cc: JOSETTE MANDEL ; Annabelle Zhou [place] [id number] Patient Name: SHAHLA ARIAS MRN: [id number] date: 1980 Sex: F Assigned Patient Location: ER Current Patient Location: ED.MAIN Accession/Order Number: [id number] Exam Date: 02/12/2024 17:20 Report Date: 02/12/2024 [...] M.D. Signed By: 02/12/241800 DD/ 58 TD/TT: Adaptive Physical Education Teacher: [address] [address] XRay Report Signed Patient: SHAHLA ARIAS MR#: [id number] : 1980 Acct:[id number] Age/Sex: 44 / F ADM Date: 02/12/24 Loc: ER Attending Dr: Ordering Physician: Annabelle Zhou Date of Service: 02/12/24 Procedure(s): XR chest 1V Accession Number(s): [id number] cc: JOSETTE MANDEL ; Annabelle Zhou [place] [id number] Patient Name: SHAHLA ARIAS MRN: [id number] date: 1980 Sex: F Assigned Patient Location: ER Current Patient Loca tion: ED.MAIN Accession/Order Numb er: [id number] Exam Date: 17:20 Report Date: 02/12/2024 17:59 [...] M.D. Signed By: 02/12/241800 DD/ 58 TD/TT: Adaptive Physical Education Teacher: Troponin I High Sensitivity Reviewed date:02/13/2024 11:41:33 AM Interpretation: Performing Lab: Notes/Report: [facility] , Troponin I High Sensitivity 66.9 4.0-51.3 pg/mL RESULTS CALLED TO NEREIDA CHONG RN at 2345 CUT-OFF POINTS HAVE BEEN ESTABLISHED BASED ON THE FOURTH UNIVERSAL DEFINITION OF MYOCARDIAL INFARCTION. THE UPPER REFERENCE LIMIT (URL) OF TROPONIN, DEFINED THE 99TH PERCENTILE OF cTnI DISTRIBUTION IN A REFERENCE POPULATION, HAS BEEN CONFIRMED THE DECISION THRESHOLD FOR NE DIAGNOSIS. 99TH PERCENTILE = 51.4 PG/ML NOTE: HIGH-SENSITIVITY TROPONIN ASSAY IS NOT INTENDED TO BE USED IN ISOLATION BUT SHOULD BE INTERPRETED IN CONJUNCTION WITH OTHER DIAGNOSTIC AND CLINICAL INFORMATION. Performing Lab: see note ML - [facility] LB ECG 12 lead Reviewed date:02/15/2024 09:51:53 AM Interpretation: Performing Lab: Notes/Report: Source Facility: [facility] [place] [address] [place] [address] Electrocardiograph Report Signed Patient: SHAHLA ARIAS MR#: [id number] : 1980 Acct:[id number] Age/Sex: 44 / F ADM Date: 02/12/24 Loc: [place] [address]: Pat Mendez M.D. Ordering Physician: Amanda Cornell NP Date of Service: 02/13/24 Procedure(s): ECG 12 lead Accession Number(s): [id number] cc: [facility] Test Date: 2024-02-13 Pat Name: SHAHLA ARIAS Department: Room: [facility] Gender: Female Director Software Development: : 1980 Requested By: JOSETTE MANDEL Order Number: [id number] Reading MD: PAT MENDEZ Measurements Intervals [place] Rate: 77 P: 60 SC: 136 QRS: 17 QRSD: 118 T: 193 [...] M.D. Signed By: 02/15/24800 DD/ 7 TD/TT: Adaptive Physical Education Teacher: [place] [address] Electrocardiograph Report Signed Patient: SHAHLA ARIAS MR#: [id number] : 1980 Acct:[id number] Age/Sex: 44 / F ADM Date: 02/12/24 Loc: MS 218- Attending Dr: Zoe Mendez M.D. Ordering Physician: Amanda Cornell NP Date of Service: 02/13/24 Procedure(s): ECG 12 lead Accession Number(s): [id number] cc: [facility] Test Date: 2024-02-13 Pat Name: SHAHLA ARIAS Department: 21 Room: [facility] Gender: Female Director Software Development: : 1980 Requested By: JOSETTE MANDEL Order Number: [id number] Reading MD: PAT MENDEZ Measurements Intervals [place] Rate: 77 P: 60 SC: 136 QRS: 17 QRSD: 118 T: 193 [...] M.D. Signed By: 02/15/24800 DD/ 7 TD/TT: Adaptive Physical Education Teacher: Gram Stain Evaluation Reviewed date:02/16/2024 01:13:11 PM [...] LC - [facility] LB SEE REPORT - Texture Artist Id information not found for OBX-specific dog breeder legend CA echo limited Reviewed date:02/13/2024 08:30:42 PM Interpretation: Performing Lab: Notes/Report: Source Facility: [place] [address] Cardiology Report Signed Patient: SHAHLA ARIAS MR#: [id number] : 1980 Acct:[id number] Age/Sex: 44 / F ADM Date: 02/12/24 Loc: MS 218-[address]: Pat Mendez M.D. Ordering Physician: Pat Mendez M.D. Date of Service: 02/13/24 Procedure(s): CA echo limited Accession Number(s): [id number] cc: JOSETTE MANDEL ; Pat Mendez M.D. Patient Name: SHAHLA ARIAS MR#: [id number] : 1980 Exam Date: 02/13/2024 Ordering Doctor: [...] CLARK Signed By: 02/13/241929 DD/ 27 TD/TT: Adaptive Physical Education Teacher: [place] [address] Cardiology Report Signed Patient: SHAHLA ARIAS MR#: [id number] : 1980 Acct:[id number] Age/Sex: 44 / F ADM Date: 02/12/24 Loc: MS 218-[address]: Zoe Mendez M.D. Ordering Physician: Pat Mendez M.D. Date of Service: 02/13/24 Procedure(s): CA ech o limited Accession Number(s): [id number] cc: JOSETTE MANDEL ; Pat Mendez M.D. Patient Name: SHAHLA ARIAS MR#: [id number] : 1980 Exam Date: 02/13/2024 Ordering Doctor: [...] CLARK Signed By: 02/13/241929 DD/ 27 TD/TT: Adaptive Physical Education Teacher: PROF MARLENA Box ([facility]) Reviewed date:02/14/2024 01:04:38 PM Interpretation: Performing Lab: Notes/Report: [facility] , Sodium 143 136-145 mmol/L Potassium [...] Performing Lab: see note ML - [facility] LB Troponin I High Sensitivity Reviewed date:02/14/2024 01:04:38 PM Interpretation: Performing Lab: Notes/Report: [facility] , Troponin I High Sensitivity 46.7 4.0-51.3 pg/mL CUT-OFF POINTS HAVE BEEN ESTABLISHED BASED ON THE FOURTH UNIVERSAL DEFINITION OF MYOCARDIAL INFARCTION. THE UPPER REFERENCE LIMIT (URL) OF TROPONIN, DEFINED THE 99TH PERCENTILE OF cTnI DISTRIBUTION IN A REFERENCE POPULATION, HAS BEEN CONFIRMED THE DECISION THRESHOLD FOR NE DIAGNOSIS. 99TH PERCENTILE = 51.4 PG/ML NOTE: HIGH-SENSITIVITY TROPONIN ASSAY IS NOT INTENDED TO BE USED IN ISOLATION BUT SHOULD BE INTERPRETED IN CONJUNCTION WITH OTHER DIAGNOSTIC AND CLINICAL INFORMATION. Performing Lab: see note ML - [facility] LB NM rachele perf SPECT rest str Reviewed date:05/02/2024 02:37:15 PM Interpretation: Performing Lab: Notes/Report: Source Facility: [facility] [place] [address] [place] [address] Nuclear Medicine Report Signed Patient: SHAHLA ARIAS MR#: [id number] : 1980 Acct:[id number] Age/Sex: 44 / F ADM Date: 04/29/24 Loc: [place] Attending Dr: BENITO PRADO Ordering Physician: BENITO PRADO Date of Service: 04/29/24 Procedure(s): NM rachele perf SPECT rest or str Accession Number(s): [id number] cc: BENITO PRADO; JOSETTE MANDEL Patient Name: SHAHLA ARIAS MR#: [id number] : 1980 Exam Date: 04/29/2024 Ordering Doctor: [...] Prince M.D. Signed By: 05/01/24 1332 DD/ 133 TD/TT: Adaptive Physical Education Teacher: The [address] [address] Nuclear Medicine Report Signed Patient: SHAHLA ARIAS MR#: [id number] : 1980 Acct:[id number] Age/Sex: 44 / F ADM Date: 04/29/24 Loc: NM Attending Dr: RODOLFO PRADO Ordering Physician: BENITO PRADO Date of Service: 04/29/24 Procedure(s): NM rachele perf SPECT rest or str Accession Number(s): [id number] cc: JUANITA PRADO; JOSETTE MANDEL Patient Name: SHAHLA ARIAS MR#: [id number] : 1980 Exam Date: 04/29/2024 Ordering Doctor: [...] Signed By: 05/01/24 1332 DD/ 1331 TD/TT: Adaptive Physical Education Teacher: LIPASE Reviewed date:05/21/2024 03:21:37 PM Interpretation: Performing Lab: Notes/Report: [facility] , Lipase 62.0 16.0-77.0 U/L Performing Lab: see note ML - [facility] LB Type and Screen Reviewed date:05/22/2024 12:03:23 PM Interpretation: Performing Lab: Notes/Report: [facility] , Blood Type B Positive Antibody Screen NEGATIVE Troponin I High Sensitivity Reviewed date:05/21/2024 03:21:37 PM Interpretation: Performing Lab: Notes/Report: [facility] , Troponin I High Sensitivity 140.6 4.0-51.3 pg/mL RESULTS CALLED TO DR. CESAR PARRA at 1455 CUT-OFF POINTS HAVE BEEN ESTABLISHED BASED ON THE FOURTH UNIVERSAL DEFINITION OF MYOCARDIAL INFARCTION. THE UPPER REFERENCE LIMIT (URL) OF TROPONIN, DEFINED THE 99TH PERCENTILE OF cTnI DISTRIBUTION IN A REFERENCE POPULATION, HAS BEEN CONFIRMED THE DECISION THRESHOLD FOR NE DIAGNOSIS. 99TH PERCENTILE = 51.4 PG/ML NOTE: HIGH-SENSITIVITY TROPONIN ASSAY IS NOT INTENDED TO BE USED IN ISOLATION BUT SHOULD BE INTERPRETED IN CONJUNCTION WITH OTHER DIAGNOSTIC AND CLINICAL INFORMATION. Performing Lab: see note ML - [facility] LB Troponin I High Sensitivity Reviewed date:05/22/2024 12:03:14 PM Interpretation: Performing Lab: Notes/Report: [facility] , Troponin I High Sensitivity 121.4 4.0-51.3 pg/mL RESULTS CALLED TO JODIE WEST RN @BY Fabiola Whiting at 1927 CUT-OFF POINTS HAVE BEEN ESTABLISHED BASED ON THE FOURTH UNIVERSAL DEFINITION OF MYOCARDIAL INFARCTION. THE UPPER REFERENCE LIMIT (URL) OF TROPONIN, DEFINED THE 99TH PERCENTILE OF cTnI DISTRIBUTION IN A REFERENCE POPULATION, HAS BEEN CONFIRMED THE DECISION THRESHOLD FOR NE DIAGNOSIS. 99TH PERCENTILE = 51.4 PG/ML NOTE: HIGH-SENSITIVITY TROPONIN ASSAY IS NOT INTENDED TO BE USED IN ISOLATION BUT SHOULD BE INTERPRETED IN CONJUNCTION WITH OTHER DIAGNOSTIC AND CLINICAL INFORMATION. Performing Lab: see note ML - [facility] LB Troponin I High Sensitivity Reviewed date:05/22/2024 05:37:03 PM Interpretation: Performing Lab: Notes/Report: PER DR MENDEZ [facility] , Troponin I High Sensitivity 139.2 4.0-51.3 pg/mL RESULTS CALLED TO JODIE WEST RN @BY Fabiola Whiting at 2222 CUT-OFF POINTS HAVE BEEN ESTABLISHED BASED ON THE FOURTH UNIVERSAL DEFINITION OF MYOCARDIAL INFARCTION. THE UPPER REFERENCE LIMIT (URL) OF TROPONIN, DEFINED THE 99TH PERCENTILE OF cTnI DISTRIBUTION IN A REFERENCE POPULATION, HAS BEEN CONFIRMED THE DECISION THRESHOLD FOR NE DIAGNOSIS. 99TH PERCENTILE = 51.4 PG/ML NOTE: HIGH-SENSITIVITY TROPONIN ASSAY IS NOT INTENDED TO BE USED IN ISOLATION BUT SHOULD BE INTERPRETED IN CONJUNCTION WITH OTHER DIAGNOSTIC AND CLINICAL INFORMATION. Performing Lab: see note ML - [facility] LB CBC AUTO DIFF Reviewed date:05/22/2024 05:37:03 PM Interpretation: Performing Lab: Notes/Report: [facility] , White Blood Count 6.7 4.0-11.0 [...] Performing Lab: see note ML - [facility] LB INFLUENZA A AND B AG Reviewed date:05/22/2024 05:37:03 PM Interpretation: Performing Lab: Notes/Report: [facility] , Influenza Virus A Antigen Negative [...] Performing Lab: see note ML - [facility] LB MAGNESIUM Reviewed date:05/22/2024 05:37:03 PM Interpretation: Performing Lab: Notes/Report: [facility] , Magnesium 1.5 1.8-2.4 mg/dL Performing Lab: see note ML - [facility] LB PREG QUANT HCG Reviewed date:05/22/2024 05:37:03 PM Interpretation: Performing Lab: Notes/Report: Comment use am blood? [facility] , HCG Quantitative 6 5-50 0.2-1 WEEK 50-500 1-2 WEEKS 100-5,000 2-3 WEEKS 500-10,000 3-4 WEEKS 1,000-50,000 4-5 WEEKS 10,000-100,000 5-6 WEEKS 15,000-200,000 6-8 WEEKS 10,000-100,000 2-3 MONTHS Performing Lab: see note - [facility] PROF 14(COMP METB) Reviewed date:05/22/2024 05:37:03 PM Interpretation: Performing Lab: Notes/Report: [facility] , Sodium 136 136-145 mmol/L Potassium [...] Performing Lab: see note ML - [facility] LB Troponin I High Sensitivity Reviewed date:05/22/2024 05:37:03 PM Interpretation: Performing Lab: Notes/Report: [facility] , Troponin I High Sensitivity 100.5 4.0-51.3 pg/mL RESULTS CALLED TO JOHANA DANIELSON RN @BY Fabiola Whiting at 0624 CUT-OFF POINTS HAVE BEEN ESTABLISHED BASED ON THE FOURTH UNIVERSAL DEFINITION OF MYOCARDIAL INFARCTION. THE UPPER REFERENCE LIMIT (URL) OF TROPONIN, DEFINED THE 99TH PERCENTILE OF cTnI DISTRIBUTION IN A REFERENCE POPULATION, HAS BEEN CONFIRMED THE DECISION THRESHOLD FOR NE DIAGNOSIS. 99TH PERCENTILE = 51.4 PG/ML NOTE: HIGH-SENSITIVITY TROPONIN ASSAY IS NOT INTENDED TO BE USED IN ISOLATION BUT SHOULD BE INTERPRETED IN CONJUNCTION WITH OTHER DIAGNOSTIC AND CLINICAL INFORMATION. Performing Lab: see note ML - [facility] LB SARS-CoV-2 Ag* Reviewed date:05/22/2024 05:37:03 PM Interpretation: Performing Lab: Notes/Report: [facility] , SARS-CoV-2 Ag NEGATIVE NEGATIVE This [...] Performing Lab: see note ML - [facility] LB CBC AUTO DIFF Reviewed date:08/08/2024 09:23:33 AM Interpretation: Performing Lab: Notes/Report: [facility] , White Blood Count 9.5 4.0-11.0 10 3/uL Red Blood Count 4.13 4.20-5.40 10 6/uL Hemoglobin 12.5 12.0-16.0 g/dL Hematocrit 37.9 36.0-48.0 % Mean Corpuscular Volume 91.8 81.0-99.0 fL Mean Corpuscular Hemoglobin 30.3 26.7-34.0 pg Mean Corpuscular HGB Conc 33.0 29.9-35.2 g/dL Red Cell Distribution Width 14.6 11.0-15.0 % Platelet Count 284 150-450 10 3/uL Mean Platelet Volume 9.9 9.5-13.5 fL Neutrophils Percent Auto 66.6 43.0-75.0 % Lymphocytes Percent Auto 20.7 20.5-60.0 % Monocytes Percent Auto 6.2 1.7-12.0 % Eosinophils Percent Auto 4.7 0.9-7.0 % Basophils Percent Auto 1.2 0.2-2.0 % Immature Granulocytes Pct Auto 0.6 0.0-0.5 % Neutrophils Absolute Auto 6.4 1.4-6.5 10 3/uL Lymphocytes Absolute Auto 2.0 1.2-3.8 10 3/uL Monocytes Absolute Auto 0.6 0.3-0.8 10 3/uL Eosinophils Absolute Auto 0.5 0.0-0.7 10 3/uL Basophils Absolute Auto 0.1 0.0-0.1 10 3/uL Immature Granulocytes Abs Auto 0.06 0.00-0.03 10 3/uL Performing Lab: see note ML - [facility] LB CBC AUTO DIFF Reviewed date:09/16/2024 10:14:00 AM Interpretation: Performing Lab: Notes/Report: [facility] , White Blood Count 11.4 4.0-11.0 10 3/uL Red Blood Count 4.09 4.20-5.40 10 6/uL Hemoglobin 12.5 12.0-16.0 g/dL Hematocrit 38.1 36.0-48.0 % Mean Corpuscular Volume 93.2 81.0-99.0 fL Mean Corpuscular Hemoglobin 30.6 26.7-34.0 pg Mean Corpuscular HGB Conc 32.8 29.9-35.2 g/dL Red Cell Distribution Width 14.3 11.0-15.0 % Platelet Count 284 150-450 10 3/uL Mean Platelet Volume 9.9 9.5-13.5 fL Neutrophils Percent Auto 67.3 43.0-75.0 % Lymphocytes Percent Auto 21.8 20.5-60.0 % Monocytes Percent Auto 7.3 1.7-12.0 % Eosinophils Percent Auto 2.4 0.9-7.0 % Basophils Percent Auto 0.8 0.2-2.0 % Immature Granulocytes Pct Auto 0.4 0.0-0.5 % Neutrophils Absolute Auto 7.7 1.4-6.5 10 3/uL Lymphocytes Absolute Auto 2.5 1.2-3.8 10 3/uL Monocytes Absolute Auto 0.8 0.3-0.8 10 3/uL Eosinophils Absolute Auto 0.3 0.0-0.7 10 3/uL Basophils Absolute Auto 0.1 0.0-0.1 10 3/uL Immature Granulocytes Abs Auto 0.05 0.00-0.03 10 3/uL Performing Lab: see note ML - [facility] LB D-DIMER Reviewed date:09/16/2024 10:14:00 AM Interpretation: Performing Lab: Notes/Report: [facility] , D Dimer 0.63 <=0.59 mg/L FEU RESULTS CALLED TO RABIA Jackson RN @BY Modesto Tapia MLT at 2338 Increases in D-Dimer concentration observed with thromboembolic events can be variable due to localization, size, and age of the thrombus. Therefore, a thromboembolic event cannot be diagnosed with certainty on the basis of the reference range. D-Dimers may also be elevated for a variety of disorders including advanced age, , coronary disease, cancer, liver disease, infection, inflammation, hematoma, DIC, trauma, post-surgery, diabetes, thrombolytic or anticoagulant therapy, stress, and generalized hospitalization. Performing Lab: see note ML - [facility] LB PROF 14(COMP METB) Reviewed date:09/16/2024 10:14:00 AM Interpretation: Performing Lab: Notes/Report: [facility] , Sodium 138 136-145 mmol/L Potassium 4.1 3.5-5.1 mmol/L Chloride 101 98-107 mmol/L Carbon Dioxide 29.7 21.0-32.0 mmol/L Anion Gap 11.4 Glucose 88 74-106 mg/dL Blood Urea Nitrogen 20.0 7.0-18.0 mg/dL Creatinine 1.25 0.55-1.02 mg/dL Estimated GFR ( Kaylan 56 >=60 mL/min/1.73m 2 Estimated GFR (Non- Trinity 46 >=60 mL/min/1.73m 2 BUN Creatinine Ratio 16.0 Calcium 9.0 8.5-10.1 mg/dL Bilirubin Total 0.5 0.2-1.0 mg/dL Aspartate Amino Transferase 19 15-37 U/L Alanine Aminotransferase 25 14-59 U/L Alkaline Phosphatase 105 46-116 U/L Total Protein 7.1 6.4-8.2 g/dL Albumin Level 3.2 3.4-5.0 g/dL Globulin 3.9 Albumin Globulin Ratio 0.8 Performing Lab: see note ML - [facility] LB UA RANDOM Reviewed date:09/16/2024 10:14:00 AM Interpretation: Performing Lab: Notes/Report: [facility] , Color Urine YELLOW YELLOW Clarity Urine CLEAR CLEAR Specific [place] Urine 1.025 1.005-1.025 pH Urine 6.0 5.0-9.0 Protein Urine NEGATIVE NEG/TRACE mg/dL Glucose Urine UA NEGATIVE NEGATIVE mg/dL Bilirubin Urine NEGATIVE NEGATIVE Ketones Urine NEGATIVE NEGATIVE mg/dL Blood Urine NEGATIVE NEGATIVE Nitrite Urine NEGATIVE NEGATIVE Urobilinogen Urine 0.2 0.2-1.0 EU/dL Leukocyte Esterase Urine NEGATIVE NEGATIVE Performing Lab: see note ML - [facility] LB Troponin I High Sensitivity Reviewed date:09/16/2024 10:14:00 AM Interpretation: Performing Lab: Notes/Report: [facility] , Troponin I High Sensitivity 46.2 4.0-51.3 pg/mL CUT-OFF POINTS HAVE BEEN ESTABLISHED BASED ON THE FOURTH UNIVERSAL DEFINITION OF MYOCARDIAL INFARCTION. THE UPPER REFERENCE LIMIT (URL) OF TROPONIN, DEFINED THE 99TH PERCENTILE OF cTnI DISTRIBUTION IN A REFERENCE POPULATION, HAS BEEN CONFIRMED THE DECISION THRESHOLD FOR NE DIAGNOSIS. 99TH PERCENTILE = 51.4 PG/ML NOTE: HIGH-SENSITIVITY TROPONIN ASSAY IS NOT INTENDED TO BE USED IN ISOLATION BUT SHOULD BE INTERPRETED IN CONJUNCTION WITH OTHER DIAGNOSTIC AND CLINICAL INFORMATION. Performing Lab: see note ML - [facility] LB ECG 12 lead Reviewed date:09/18/2024 10:00:48 AM Interpretation: Performing Lab: Notes/Report: Source Facility: [facility] [place] [address] [place] [address] Electrocardiograph Report Signed Patient: SHAHLA ARIAS MR#: [id number] : 1980 Acct:[id number] Age/Sex: 44 / F ADM Date: 09/13/24 Loc: ER Attending Dr: Ordering Physician: Khloe Pham D.O. Date of Service: 09/13/24 Procedure(s): ECG 12 lead Accession Number(s): [id number] cc: [facility] Test Date: 2024-09-13 Pat Name: SHAHLA ARIAS Department: Room: - Gender: Female Director Software Development: : 1980 Requested By: [id number] Order Number: [id number] Zeina MD: MARIVEL PRINCE Measurements Intervals [place] Rate: 86 P: 63 SC: 140 QRS: 6 QRSD: 102 T: 185 QT: 354 QTc: 397 Interpretive Statements 1100 Sinus rhythm SC intervals appear short with possible delta wave RSR pattern in V1 5234 Left ventricular hypertrophy with repolarization abnormality ST T wave abnormalities secondary to LEFT VENTRICULAR HYPERTROPHY vs ischemia 9150 abnormal ECG Compared to ECG 05/21/2024 14:03:39 SC morphology appears slurred suggestive of delta wave Electronically Signed On 09-17-2024 16:19:18 EDT by MARIVEL PRINCE Dictated By: Marivel Prince M.D. Signed By: 09/17/24 1619 DD/ 2226 TD/TT: Adaptive Physical Education Teacher: [place] [address] Electrocardiograph Report Signed Patient: SHAHLA ARIAS MR#: [id number] : 1980 Acct:[id number] Age/Sex: 44 / F ADM Date: 09/13/24 Loc: ER Attending Dr: Ordering Physician: Khloe Pham D.O. Date of Service: 09/13/24 Procedure(s): ECG 12 lead Accession Number(s): [id number] cc: [facility] Test Date: 2024-09-13 Pat Name: SHAHLA ARIAS Department: 21 Room: - Gender: Female Director Software Development: : 1980 Requ ested By: [id number] Order Number: [id number] Reading MD: MARIVEL PRINCE Measurements Intervals [place] Rate: 86 P: 63 SC: 140 QRS: 6 QRSD: 102 T: 185 QT: 354 QTc: 397 Interpretive Statements 1100 Sinus rhythm SC intervals appear short with possible delta wave RSR pattern in V1 5234 Left ventricula r hypertrophy with repolarization abnormality ST T wave abnormalit ies secondary to LEFT VENTRICULAR HYPERTROPHY vs ischemia 9150 abnormal ECG Compared to ECG 05/21/2024 14:03:39 SC morphology appear s slurred suggestive of delta wave Electronically Marylin d On 09-17-2024 16:19:18 EDT by MARIVEL PRINCE Dictated By: Marivel Prince M.D. Signed By: 09/17/24 1619 DD/ TD/TT: Adaptive Physical Education Teacher: XR chest 2V Reviewed date:09/16/2024 10:14:00 AM Interpretation: Performing Lab: Notes/Report: Source Facility: [place] [address] XRay Report Signed Patient: SHAHLA ARIAS MR#: [id number] : 1980 Acct:[id number] Age/Sex: 44 / F ADM Date: 09/13/24 Loc: ER Attending Dr: Ordering Physician: Khloe Pham D.O. Date of Service: 09/13/24 Procedure(s): XR chest 2V Accession Number(s): [id number] cc: JOSETTE MANDEL ; Khloe Pham D.O. [place] [address] Patient Name: SHAHLA ARIAS MRN: [id number] date: 1980 Sex: F Assigned Patient Location: ER Current Patient Location: ER Accession/Order Number: [id number] Exam Date: 09/13/2024 23:31 Report Date: 09/13/2024 23:33 At the request of: KHLOE PHAM DO Procedure: XR chest 2V PA AND LATERAL CHEST: CLINICAL HISTORY: SOB and COUGH COMPARISON: 05/22/2024 FINDINGS: Unremarkable cardiomediastinal. Lungs clear. No effusion or pneumothorax. XR/XR chest 2V IMPRESSION: NO ACUTE CARDIOPULMONARY ABNORMALITY. Impression dictated by: Chandra Johnson M.D. 09/13/2024 11:33 PM Dictation Location: [place] [address] Electronically authenticated by: [id number] Y Date: 09/13/2024 23:33 Dictated By: Chandra Johnson M.D. Signed By: 09/13/242335 DD/ 32 TD/TT: Adaptive Physical Education Teacher: [place] [address] XRay Report Signed Patient: SHAHLA ARIAS MR#: [id number] : 1980 Acct:[id number] Age/Sex: 44 / F ADM Date: 09/13/24 Loc: ER Attending Dr: Ordering Physician: Khloe Pham D.O. Date of Service: 09/13/24 Procedure(s): XR chest 2V Accession Number(s): [id number] cc: JOSETTE MANDEL ; Khloe Pham D.O. [place] [address] Patient Name: SHAHLA ARIAS MRN: [id number] date: 1980 Sex: F Assigned Patient Location: ER Current Patient Loca tion: ER Accession/Order Numb er: [id number] Exam Date: 09/13/2024 23:31 Report Date: 09/13/2024 23:33 At the request of: KHLOE JOYA DO Procedure: XR chest 2V PA AND LATERAL CHEST: CLINICAL HISTORY: SO B and COUGH COMPARISON: 05/22/2024 FINDINGS: Unremarkable cardiomediastinal. Lungs clear. No effusion or pneumothorax. X R/XR chest 2V IMPRESSION: NO ACUTE CARDIOPULMO NARY ABNORMALITY. Impression dictated by: Chandra Johnson M.D. 09/13/2024 11:33 PM Dictation Location: [place] [address] Electronically authenticated by: [id number] Y Date: 09/13/2024 23:33 Dictated By: Mami Johnson M.D. Signed By: 09/13/242335 DD/ 32 TD/TT: Adaptive Physical Education Teacher: CT head/brain wo con Reviewed date:09/16/2024 10:14:00 AM Interpretation: Performing Lab: Notes/Report: Source Facility: [place] [address] CT Scan Report Signed Patient: SHAHLA ARIAS MR#: [id number] : 1980 Acct:[id number] Age/Sex: 44 / F ADM Date: 09/13/24 Loc: ER Attending Dr: Ordering Physician: Khloe Pham D.O. Date of Service: 09/13/24 Procedure(s): CT head/brain wo con Accession Number(s): [id number] cc: JOSETTE MANDEL [place] [address] Patient Name: SHAHLA ARIAS MRN: [id number] date: 1980 Sex: F Assigned Patient Location: ER Current Patient Location: ER Accession/Order Number: [id number] Exam Date: 09/13/2024 23:34 Report Date: 09/13/2024 23:38 At the request of: KHLOE PHAM DO Procedure: CT head/brain wo con CT BRAIN WITHOUT CONTRAST: CLINICAL HISTORY: vertical nystagmus, dizziness COMPARISON: None TECHNIQUE: Contiguous axial unenhanced images were obtained through the brain. This CT exam was performed using one or more following dose reduction techniques: Automated exposure control, adjustment of the mA and/or kV according to patient size, or use of iterative reconstruction technique. FINDINGS: There is no evidence of midline shift, intra or extra-axial fluid collection, hemorrhage or CT evidence of acute large vascular distribution stroke. Intracranial vascular disease. Suspected partial empty sella turcica. Visualized intraorbital contents appear unremarkable. Visualized paranasal sinuses are clear. The surrounding soft tissues are normal. CT/CT head/brain wo con IMPRESSION: NO ACUTE INTRACRANIAL ABNORMALITY. Impression dictated by: Chandra Johnson M.D. 09/13/2024 11:38 PM Dictation Location: [place] [address] Electronically authenticated by: [id number] Y Date: 09/13/2024 23:38 Dictated By: Chandra Johnson M.D. Signed By: 09/13/24 2341 DD/ 2338 TD/TT: Adaptive Physical Education Teacher: [place] [address] CT Scan Report Signed Patient: SHAHLA ARIAS MR#: [id number] : 1980 Acct:[id number] Age/Sex: 44 / F ADM Date: 09/13/24 Loc: ER Attending Dr: Ordering Physician: Khloe Pham D.O. Date of Service: 09/13/24 Procedure(s): CT head/brain wo con Accession Number(s): [id number] cc: JOSETTE MANDEL [place] [address] Patient Name: SHAHLA ARIAS MRN: [id number] date: 1980 Sex: F Assigned Patient Location: ER Current Patient Loca tion: ER Accession/Order Numb er: [id number] Exam Date: 09/13/2024 23:34 Report Date: 09/13/2024 23:38 At the request of: KHLOE JOYA DO Procedure: CT head/b rain wo con CT BRAIN WITHOUT CONTRAST: CLINICAL HISTORY: vertical nystagmus, dizziness COMPARISON: None TECHNIQUE: Contiguou s axial unenhanced images were obtained through the brain. This CT exam was performed using one or more following dose reduction techniques: Automate d exposure control, adjustment of the mA and/or kV according to patient size, or use of iterative reconstruction technique. FINDINGS: There is n o evidence of midline shift, intra or extra-axial fluid collection, hemorrha ge or CT evidence of acute large vascular distribution stroke. Intracranial vascular disease. Suspected partial empty sella turcica. Visualized intraorbi berlin contents appear unremarkable. Visualized paranasal sinuses are clear. The surrounding soft tissues are normal. C T/CT head/brain wo con IMPRESSION: NO ACUTE INTRACRANIA L ABNORMALITY. Impression dictated by: Chandra Johnson M.D. 09/13/2024 11:38 PM Dictation Location: [place] [address] Electronically authenticated by: [id number] Y Date: 09/13/2024 23:38 Dictated By: Mami Johnson M.D. Signed By: 09/13/24 2341 DD/ 2338 TD/TT: Adaptive Physical Education Teacher: US pelvis transvaginal Reviewed date:10/14/2024 12:59:05 PM Interpretation: Performing Lab: Notes/Report: Source Facility: [place] [address] Ultrasound Report Signed Patient: SHAHLA ARIAS MR#: [id number] : 1980 Acct:[id number] Age/Sex: 44 / F ADM Date: 10/14/24 Loc: ER Attending Dr: Ordering Physician: Winnie Franklin M.D. Date of Service: 10/14/24 Procedure(s): US pelvis transvaginal Accession Number(s): [id number] cc: JOSETTE MANDEL ; Winnie Franklin M.D. [place] [address] Patient Name: SHAHLA ARIAS MRN: [facility]:[id number] date: 1980 Sex: F Assigned Patient Location: ER Current Patient Location: ER Accession/Order Number: [id number] Exam Date: 10/14/2024 08:56 Report Date: 10/14/2024 09:01 At the request of: WINNIE FRANKLIN MD Procedure: US pelvis transvaginal Pelvic ultrasound. Reason for exam: Heavy bleeding for 2 days Comparison: none Technique: Transvaginal imaging of the uterus and ovaries was also obtained. Additional spectral Doppler analysis of the ovaries was also obtained. Findings: Uterus measures 8.9 x 5.2 x 4.9 cm. No measurable fibroid. Endometrium measures 1 cm without focal abnormality. No free fluid. Right ovary measures 2.1 x 1.6 x 2.5 cm. Left ovary measures 3.0 x 2.2 x 1.7 cm. No adnexal mass or cyst. Normal arterial and venous Doppler waveforms. US/US pelvis transvaginal Impression: No acute process. Impression dictated by: Scott Callejas Jr., D.O. 10/14/2024 9:01 AM Dictation Location: [place] [address] Electronically authenticated by: [id number] Y Date: 10/14/2024 09:01 Dictated By: Scott Callejas M.D. Signed By: 10/14/24903 DD/ 0 TD/TT: Adaptive Physical Education Teacher: [place] [address] Ultrasound Report Signed Patient: SHAHLA ARIAS MR#: [id number] : 1980 Acct:[id number] Age/Sex: 44 / F ADM Date: 10/14/24 Loc: ER Attending Dr: Ordering Physician: Winnie Franklin M.D. Date of Service: 10/14/24 Procedure(s): US pel vis transvaginal Accession Number(s): [id number] cc: JOSETTE MANDEL ; Winnie Franklin M.D. [place] [address] Patient Name: SHAHLA ARIAS MRN: [id number]:[id number] date: 1980 Sex: F Assigned Patient Location: ER Current Patient Loca tion: ER Accession/Order Numb er: [id number] Exam Date: 10/14/2024 08:56 Report Date: 10/14/2024 09:01 At the request of: WINNIE FRANKLIN MD Procedure: US pelvis transvaginal Pelvic ultrasound. Reason for exam: Hea vy bleeding for 2 days Comparison: none Technique: Transvagi nal imaging of the uterus and ovaries was also obtained. Additional spectral Doppler analysis of the ovaries was also obtained. Findings: Uterus julianna sures 8.9 x 5.2 x 4.9 cm. No measurable fibroid. Endometrium measures 1 cm without focal abnormality. No free fluid. Right ovary measures 2.1 x 1.6 x 2.5 cm. Left ovary measures 3.0 x 2.2 x 1.7 cm. No adnexal mass or c yst. Normal arterial and venous Doppler waveforms. U S/US pelvis transvaginal Impression: No acute process. Impression dictated by: Scott Callejas Jr., D.O. 10/14/2024 9:01 AM Dictation Location: [place] [address] Electronically authenticated by: [id number] Y Date: 10/14/2024 09:01 Dictated By: Scott Callejas M.D. Signed By: 10/14/24903 DD/ 0 TD/TT: Adaptive Physical Education Teacher: CBC AUTO DIFF Reviewed date:11/06/2024 09:27:25 AM Interpretation: Performing Lab: Notes/Report: [facility] , White Blood Count 10.0 4.0-11.0 10 3/uL Red Blood Count 3.63 4.20-5.40 10 6/uL Hemoglobin 10.6 12.0-16.0 g/dL Hematocrit 33.1 36.0-48.0 % Mean Corpuscular Volume 91.2 81.0-99.0 fL Mean Corpuscular Hemoglobin 29.2 26.7-34.0 pg Mean Corpuscular HGB Conc 32.0 29.9-35.2 g/dL Red Cell Distribution Width 13.4 11.0-15.0 % Platelet Count 292 150-450 10 3/uL Mean Platelet Volume 10.1 9.5-13.5 fL Neutrophils Percent Auto 72.0 43.0-75.0 % Lymphocytes Percent Auto 16.6 20.5-60.0 % Monocytes Percent Auto 6.6 1.7-12.0 % Eosinophils Percent Auto 3.8 0.9-7.0 % Basophils Percent Auto 0.5 0.2-2.0 % Immature Granulocytes Pct Auto 0.5 0.0-0.5 % Neutrophils Absolute Auto 7.2 1.4-6.5 10 3/uL Lymphocytes Absolute Auto 1.7 1.2-3.8 10 3/uL Monocytes Absolute Auto 0.7 0.3-0.8 10 3/uL Eosinophils Absolute Auto 0.4 0.0-0.7 10 3/uL Basophils Absolute Auto 0.1 0.0-0.1 10 3/uL Immature Granulocytes Abs Auto 0.05 0.00-0.03 10 3/uL Performing Lab: see note ML - [facility] PROF CHEM 8 ([employer] METB) Reviewed date:11/06/2024 09:27:25 AM Interpretation: Performing Lab: Notes/Report: [facility] , Sodium 139 136-145 mmol/L Potassium 4.5 3.5-5.1 mmol/L Chloride 104 98-107 mmol/L Carbon Dioxide 27.6 21.0-32.0 mmol/L Anion Gap 11.9 Glucose 95 74-106 mg/dL Blood Urea Nitrogen 9.0 7.0-18.0 mg/dL Creatinine 1.08 0.55-1.02 mg/dL Estimated GFR ( Kaylan >60 >=60 mL/min/1.73m 2 Estimated GFR (Non- Trinity 55 >=60 mL/min/1.73m 2 BUN Creatinine Ratio 8.3 Calcium 9.2 8.5-10.1 mg/dL Performing Lab: see note ML - [facility] HCG Qualitative* Reviewed date:10/14/2024 12:59:05 PM Interpretation: Performing Lab: Notes/Report: [facility] , HCG Qualitative NEGATIVE NEGATIVE Performing Lab: see note ML - [facility] PROF CHEM 8 ([employer] METB) Reviewed date:10/14/2024 12:59:05 PM Interpretation: Performing Lab: Notes/Report: [facility] , Sodium 139 136-145 mmol/L Potassium 4.6 3.5-5.1 mmol/L Chloride 105 98-107 mmol/L Carbon Dioxide 28.2 21.0-32.0 mmol/L Anion Gap 10.4 Glucose 161 74-106 mg/dL Blood Urea Nitrogen 21.0 7.0-18.0 mg/dL Creatinine 1.27 0.55-1.02 mg/dL Estimated GFR ( Kaylan 55 >=60 mL/min/1.73m 2 Estimated GFR (Non- Trinity 45 >=60 mL/min/1.73m 2 BUN Creatinine Ratio 16.5 Calcium 8.8 8.5-10.1 mg/dL Performing Lab: see note ML - [facility] LB CBC AUTO DIFF Reviewed date:10/14/2024 12:59:05 PM Interpretation: Performing Lab: Notes/Report: [facility] , White Blood Count 11.9 4.0-11.0 10 3/uL Red Blood Count 3.83 4.20-5.40 10 6/uL Hemoglobin 11.5 12.0-16.0 g/dL Hematocrit 36.0 36.0-48.0 % Mean Corpuscular Volume 94.0 81.0-99.0 fL Mean Corpuscular Hemoglobin 30.0 26.7-34.0 pg Mean Corpuscular HGB Conc 31.9 29.9-35.2 g/dL Red Cell Distribution Width 13.9 11.0-15.0 % Platelet Count 289 150-450 10 3/uL Mean Platelet Volume 9.7 9.5-13.5 fL Neutrophils Percent Auto 69.4 43.0-75.0 % Lymphocytes Percent Auto 20.1 20.5-60.0 % Monocytes Percent Auto 6.0 1.7-12.0 % Eosinophils Percent Auto 3.2 0.9-7.0 % Basophils Percent Auto 0.9 0.2-2.0 % Immature Granulocytes Pct Auto 0.4 0.0-0.5 % Neutrophils Absolute Auto 8.3 1.4-6.5 10 3/uL Lymphocytes Absolute Auto 2.4 1.2-3.8 10 3/uL Monocytes Absolute Auto 0.7 0.3-0.8 10 3/uL Eosinophils Absolute Auto 0.4 0.0-0.7 10 3/uL Basophils Absolute Auto 0.1 0.0-0.1 10 3/uL Immature Granulocytes Abs Auto 0.05 0.00-0.03 10 3/uL Performing Lab: see note - [facility] LB Hep B Core Ab, IgM Reviewed date:08/08/2024 09:23:33 AM Interpretation: Performing Lab: Notes/Report: [facility] , Hep B Core Ab, IgM Negative Negative Performed at: - [facility] [address] [id number] Head Worker: Jan So PhD, Phone: [phone] Performing Lab: see note - [facility] LB HCV Antibody [place](PCR/Gen o) Reviewed date:08/08/2024 09:23:33 AM Interpretation: Performing Lab: Notes/Report: [facility] , HCV Ab Non Reactive Non Reactive Interpretation: Comment . Not infected with HCV unless early or acute infection is suspected (which may be delayed in an immunocompromised individual), or other evidence exists to indicate HCV infection. Performed at: [address] [id number] Head Worker: Jan So PhD, Phone: [phone] Performing Lab: see note [facility] Hep B Core Ab, Tot Reviewed date:08/08/2024 09:23:33 AM Interpretation: Performing Lab: Notes/Report: [facility] , Hep B Core Ab, Tot Negative Negative Performing Lab: see note [facility] HIV Ab/p24 Ag with Reflex Reviewed date:08/08/2024 09:23:12 AM Interpretation: Performing Lab: Notes/Report: [facility] , HIV Ab/p24 Ag Screen Non Reactive Non Reactive HIV-1/HIV-2 antibodies and HIV-1 p24 antigen were NOT detected. There is no laboratory evidence of HIV infection. HIV Negative Performed at: [address] [id number] Head Worker: Jan So PhD, Phone: [phone] Performing Lab: see note [facility] LB PROF 14(COMP METB) Reviewed date:08/08/2024 09:23:33 AM Interpretation: Performing Lab: Notes/Report: [facility] , Sodium 140 136-145 mmol/L Potassium 4.8 3.5-5.1 mmol/L Chloride 103 98-107 mmol/L Carbon Dioxide 29.1 21.0-32.0 mmol/L Anion Gap 12.7 Glucose 105 74-106 mg/dL Blood Urea Nitrogen 16.0 7.0-18.0 mg/dL Creatinine 0.98 0.55-1.02 mg/dL Estimated GFR ( Kaylan >60 >=60 mL/min/1.73m 2 Estimated GFR (Non- Trinity >60 >=60 mL/min/1.73m 2 BUN Creatinine Ratio 16.3 Calcium 9.5 8.5-10.1 mg/dL Bilirubin Total 0.6 0.2-1.0 mg/dL Aspartate Amino Transferase 19 15-37 U/L Alanine Aminotransferase 27 14-59 U/L Alkaline Phosphatase 112 46-116 U/L Total Protein 7.2 6.4-8.2 g/dL Albumin Level 3.3 3.4-5.0 g/dL Globulin 3.9 Albumin Globulin Ratio 0.8 Performing Lab: see note ML - [facility] LB NM rachele perf SPECT rest str Reviewed date:05/23/2024 04:58:35 PM Interpretation: Performing Lab: Notes/Report: Source Facility: [place] [address] Nuclear Medicine Report Signed Patient: SHAHLA ARIAS MR#: [id number] : 1980 Acct:[id number] Age/Sex: 44 / F ADM Date: 05/21/24 Loc: ICU 273-[address]: Pat Mendez M.D. Ordering Physician: Pat Mendez M.D. Date of Service: 05/23/24 Procedure(s): NM rachele perf SPECT rest or str Accession Number(s): [id number] cc: JOSETTE MANDEL ; Pat Mendez M.D. Patient Name: SHAHLA ARIAS MR#: [id number] : 1980 Exam Date: 05/23/2024 Ordering Doctor: [...] the study was pending per attending physician [facility]. For more details, please see separate cardiac [...] Signed By: 05/23/24 1409 DD/ 1408 TD/TT: Adaptive Physical Education Teacher: [place] [address] Nuclear Medicine Report Signed Patient: SHAHLA ARIAS MR#: [id number] : 1980 Acct:[id number] Age/Sex: 44 / F ADM Date: 05/21/24 Loc: ICU 273-[address]: Zoe Mendez M.D. Ordering Physician: Pat Mendez M.D. Date of Service: 05/23/24 Procedure(s): NM rachele perf SPECT rest or str Accession Number(s): [id number] cc: JOSETTE MANDEL ; Pat Mendez M.D. Patient Name: SHAHLA ARIAS MR#: [id number] : 1980 Exam Date: 05/23/2024 Ordering Doctor: DR Pat Trammell RADIOLOGY REPORT PROCEDURE: NM RACHELE PE RF SPECT REST OR STR COMPARISON: None. INDICATIONS: cp TECHNIQUE: Exam Description: Apurva zavaleta Only two day protocol gated SPECT Rest [...] study was pending pe r attending physician [facility]. For more details, please see separate cardiac [...] Signed By: 05/23/24 1409 DD/ 1408 TD/TT: Adaptive Physical Education Teacher: Troponin I High Sensitivity Reviewed date:05/23/2024 08:52:32 AM Interpretation: Performing Lab: Notes/Report: [facility] , Troponin I High Sensitivity 84.3 4.0-51.3 pg/mL RESULTS CALLED TO ICU Josephine Colmenares RN @BY Modesto Tapia [place] at 0629 CUT-OFF POINTS HAVE BEEN ESTABLISHED BASED ON THE FOURTH UNIVERSAL DEFINITION OF MYOCARDIAL INFARCTION. THE UPPER REFERENCE LIMIT (URL) OF TROPONIN, DEFINED THE 99TH PERCENTILE OF cTnI DISTRIBUTION IN A REFERENCE POPULATION, HAS BEEN CONFIRMED THE DECISION THRESHOLD FOR NE DIAGNOSIS. 99TH PERCENTILE = 51.4 PG/ML NOTE: HIGH-SENSITIVITY TROPONIN ASSAY IS NOT INTENDED TO BE USED IN ISOLATION BUT SHOULD BE INTERPRETED IN CONJUNCTION WITH OTHER DIAGNOSTIC AND CLINICAL INFORMATION. Performing Lab: see note ML - [facility] LB PROF 14(COMP METB) Reviewed date:05/23/2024 08:52:32 AM Interpretation: Performing Lab: Notes/Report: [facility] , Sodium 138 136-145 mmol/L Potassium [...] 1.0 Performing Lab: see note ML - [facility] LB MAGNESIUM Reviewed date:05/23/2024 08:52:32 AM Interpretation: Performing Lab: Notes/Report: [facility] , Magnesium 1.7 1.8-2.4 mg/dL Performing Lab: see note ML - [facility] LB CBC AUTO DIFF Reviewed date:05/23/2024 08:52:32 AM Interpretation: Performing Lab: Notes/Report: [facility] , White Blood Count 5.8 4.0-11.0 [...] Performing Lab: see note ML - [facility] LB BNP Reviewed date:05/23/2024 08:52:32 AM Interpretation: Performing Lab: Notes/Report: [facility] , NT Pro B Type Natriuretic Pept 607.0 <=450.0 pg/mL Performing Lab: see note ML - [facility] LB CA echo limited Reviewed date:05/22/2024 05:37:03 PM Interpretation: Performing Lab: Notes/Report: Source Facility: [facility] [place] [address] [place] [address] Cardiology Report Signed Patient: SHAHLA ARIAS MR#: [id number] : 1980 Acct:[id number] Age/Sex: 44 / F ADM Date: 05/21/24 Loc: ICU 273-[address]: Pat Mendez M.D. Ordering Physician: Pat Mendez M.D. Date of Service: 05/22/24 Procedure(s): CA echo limited Accession Number(s): [id number] cc: JOSETTE MANDEL ; Pat Mendez M.D. Patient Name: SHAHLA ARIAS MR#: [id number] : 1980 Exam Date: 05/22/2024 Ordering Doctor: [...] Prince M.D. Signed By: 05/22/24 1435 DD/ 1434 TD/TT: Adaptive Physical Education Teacher: [place] [address] Cardiology Report Signed Patient: SHAHLA ARIAS MR#: [id number] : 1980 Acct:[id number] Age/Sex: 44 / F ADM Date: 05/21/24 Loc: ICU 273-[address]: Zoe Mendez M.D. Ordering Physician: Pat Mendez M.D. Date of Service: 05/22/24 Procedure(s): CA ech o limited Accession Number(s): [id number] cc: JOSETTE MANDEL ; Pat Mendez M.D. Patient Name: SHAHLA ARIAS MR#: [id number] : 1980 Exam Date: 05/22/2024 Ordering Doctor: [...] Prince M.D. Signed By: 05/22/24 1435 DD/ 33 TD/TT: Adaptive Physical Education Teacher: BNP Reviewed date:05/22/2024 05:37:03 PM Interpretation: Performing Lab: Notes/Report: [facility] , NT Pro B Type Natriuretic Pept 71.0 <=450.0 pg/mL Performing Lab: see note ML - [facility] LB Troponin I High Sensitivity Reviewed date:05/21/2024 03:54:22 PM Interpretation: Performing Lab: Notes/Report: [facility] , Troponin I High Sensitivity 136.1 4.0-51.3 pg/mL RESULTS CALLED TO DARI FULTON at 1545 CUT-OFF POINTS HAVE BEEN ESTABLISHED BASED ON THE FOURTH UNIVERSAL DEFINITION OF MYOCARDIAL INFARCTION. THE UPPER REFERENCE LIMIT (URL) OF TROPONIN, DEFINED THE 99TH PERCENTILE OF cTnI DISTRIBUTION IN A REFERENCE POPULATION, HAS BEEN CONFIRMED THE DECISION THRESHOLD FOR NE DIAGNOSIS. 99TH PERCENTILE = 51.4 PG/ML NOTE: HIGH-SENSITIVITY TROPONIN ASSAY IS NOT INTENDED TO BE USED IN ISOLATION BUT SHOULD BE INTERPRETED IN CONJUNCTION WITH OTHER DIAGNOSTIC AND CLINICAL INFORMATION. Performing Lab: see note ML - [facility] LB ECG 12 lead Reviewed date:05/21/2024 03:21:37 PM Interpretation: Performing Lab: Notes/Report: Source Facility: [facility] [place] [address] [place] [address] Electrocardiograph Report Signed Patient: SHAHLA ARIAS MR#: [id number] : 1980 Acct:[id number] Age/Sex: 44 / F ADM Date: 05/21/24 Loc: ER Attending Dr: Ordering Physician: Blossom Parra Date of Service: 05/21/24 Procedure(s): ECG 12 lead Accession Number(s): [id number] cc: [facility] Test Date: 2024-05-21 Pat Name: SHAHLA ARIAS Department: Room: - Gender: Female Director Software Development: : 1980 Requested By: 4 Order Number: [id number] Reading MD: MARIVEL PRINCE Measurements Intervals [place] Rate: 87 P: 65 SC: 134 QRS: 29 QRSD: 98 T: 208 [...] Signed By: 05/21/24 1458 DD/ 1403 TD/TT: Adaptive Physical Education Teacher: [place] [address] Electrocardiograph Report Signed Patient: SHAHLA ARIAS MR#: [id number] : 1980 Acct:[id number] Age/Sex: 44 / F ADM Date: 05/21/24 Loc: ER Attending Dr: Ordering Physician: Blossom Parra Date of Service: 05/21/24 Procedure(s): ECG 12 lead Accession Number(s): [id number] cc: [facility] Test Date: 2024-05-21 Pat Name: SHAHLA ARIAS Department: 21 Room: - Gender: Female Director Software Development: : 1980 Requ ested By: [id number] Order Number: [id number] Reading MD: MARIVEL PRINCE Measurements Intervals [place] Rate: 87 P: 65 SC: 134 QRS: 29 QRSD: 98 T: 208 [...] Signed By: 05/21/24 1458 DD/ 1403 TD/TT: Adaptive Physical Education Teacher: HCG Qualitative* Reviewed date:05/21/2024 02:50:55 PM Interpretation: Performing Lab: Notes/Report: [facility] , HCG Qualitative POSITIVE NEGATIVE Performing Lab: see note ML - [facility] LB URINE MICROSCOPIC ONLY Reviewed date:05/21/2024 02:46:29 PM Interpretation: Performing Lab: Notes/Report: [facility] , WBC Urine 2-5 NONE SEEN #/HPF RBC Urine NONE SEEN 0-2 #/HPF Bacteria Urine TRACE NONE SEEN #/HPF Mucus Urine NONE SEEN NONE SEEN Squamous Epithelial Cell Urine MANY NONE/RARE #/LPF Crystals Seen? None Seen None Seen #/HPF Cast Seen? NONE SEEN NONE SEEN #/LPF Urine Culture Indicated NO Performing Lab: see note ML - [facility] LB UA (CLEAN or CATCH) ROLL SCALE MAN or M ICRO IF IND. Reviewed date:05/21/2024 02:46:29 PM Interpretation: Performing Lab: Notes/Report: [facility] , Color Urine YELLOW YELLOW Clarity Urine SL CLOUDY CLEAR Specific [place] Urine 1.015 1.005-1.025 pH Urine 5.5 5.0-9.0 Protein Urine TRACE NEG/TRACE mg/dL Glucose Urine UA NEGATIVE NEGATIVE mg/dL Bilirubin Urine NEGATIVE NEGATIVE Ketones Urine TRACE NEGATIVE mg/dL Blood Urine NEGATIVE NEGATIVE Nitrite Urine NEGATIVE NEGATIVE Urobilinogen Urine 1.0 0.2-1.0 EU/dL Leukocyte Esterase Urine SMALL NEGATIVE Urine Microscopic Indicated YES Performing Lab: see note ML - [facility] LB PROF 14(COMP METB) Reviewed date:05/21/2024 02:50:55 PM Interpretation: Performing Lab: Notes/Report: [facility] , Sodium 137 136-145 mmol/L Potassium [...] 0.9 Performing Lab: see note ML - [facility] LB PREG QUANT HCG Reviewed date:05/21/2024 03:54:22 PM Interpretation: Performing Lab: Notes/Report: [facility] , HCG Quantitative 7 5-50 0.2-1 WEEK 50-500 1-2 WEEKS 100-5,000 2-3 WEEKS 500-10,000 3-4 WEEKS 1,000-50,000 4-5 WEEKS 10,000-100,000 5-6 WEEKS 15,000-200,000 6-8 WEEKS 10,000-100,000 2-3 MONTHS Performing Lab: see note ML - [facility] LB CBC AUTO DIFF Reviewed date:05/21/2024 02:46:29 PM Interpretation: Performing Lab: Notes/Report: [facility] , White Blood Count 8.0 4.0-11.0 [...] Performing Lab: see note ML - [facility] LB CBC AUTO DIFF Reviewed date:02/14/2024 01:04:38 PM Interpretation: Performing Lab: Notes/Report: [facility] , White Blood Count 4.8 4.0-11.0 [...] 10 3/uL Performing Lab: see note - [facility] LB Gram Stain Evaluation Reviewed date:02/22/2024 03:12:00 PM [...] 4 See Below For Report Result 4 BATTERY ASSEMBLER DRY CELL Performing Lab: see note LC - [facility] LB Result 3 Reviewed date:02/22/2024 03:12:00 PM Interpretation: Performing Lab: Notes/Report: [facility] , Result 3 See Below For Report Result 3 BATTERY ASSEMBLER DRY CELL Performing Lab: see note LC - [facility] LB Result 2 Reviewed date:02/22/2024 03:12:00 PM Interpretation: Performing Lab: Notes/Report: [facility] , Result 2 See Below For Report Result 2 BATTERY ASSEMBLER DRY CELL Performing Lab: see note LC - [facility] LB Result 1 Reviewed date:02/22/2024 03:12:00 PM Interpretation: Performing Lab: Notes/Report: [facility] , Result 1 See Below For Report Result 1 TNP Result 1 Test not performed Result 1 TNP Performing Lab: see note LC - [facility] LB SEE REPORT - Texture Artist Id information not found for OBX-specific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
--- OUTSIDE RECORDS SUMMARY | 2024-11-12 13:12 | XMS_ITS | Encounter Summary ---
Author Organization [employer] Address [id number] [address] [place] [address] Care Team Providers Care Scrap Crane Operator Name Role Phone Josette Mendoza CUSTODIAL LABORER-AUDITOR/QUALITY Primary Care Provider Encounter Details Date Type Department Care Team (Late st Contact Info) Description 05/23/2023 Telephone [facility] [address] [place] [address] Francy Dewitt, VITA Social History Tobacco Use [...] Never 05/31/2020 How often do you attend nondenominational or anabaptist serv ices? Never 05/31/2020 Do you belong to any clubs o r organizations such as nondenominational groups, unions, fraternal or athletic groups, or [...] Answer Date Recorded Total Score 0 05/31/2020 [facility] of Occupat ional Health - Occupational Stress [...] things needed for daily living? No 05/31/2020 [place] Depression Scale Answer Date Recorded [place] Depression Scale Total 11 05/19/2019 The thought of harming myself has occurred to me . Never 05/19/2019 Childcare Answer Date Recorded Do problems getting child ca re make it difficult for you to work or study? No 05/31/2020 Employment Answer Date Recorded Do you need help finding a [facility] career center and/or a training [...] She Saw Dr Webster last week in [place] and he told her that she would be scheduled for this At [place] but she has not heard from anyone about when it is scheduled. Please call her about this. She also mentioned that she may want to follow up in [place] if possible. * Telephone Encounter - Ana [...] documented as of this encounter Care Teams Scrap Crane Operator Relationship Specialty Start Date End Date Josette Mendoza, CUSTODIAL LABORER-AUDITOR/QUALITY [address] [facility] [place] [address] PCP - General Family Medicine 08/25/23 documented as of this encounter
--- OUTSIDE RECORDS SUMMARY | 2024-11-12 13:13 | XMS_ITS | Patient Health Record ---
Author Organization [facility] Address [address] [place], [place] [id number] Care Team Providers Care Probation And Parole Officer Name Role Phone Maria Fernanda Pa Unavailable [phone] Reason For Referral No Information Plan Of Treatment No Information Insurance Providers Payer Name Payer Address Payer Phone Subscriber Number Group Number Insured Name Patient Relationship to Insured Coverage Start Date Coverage End Date [employer]them [employer] [facility] [address] [place] [address] [id number] Laura Arias Self - patient is the insured 4 DMedicaid [employer] after [place] [address] [place], [place] [id number] Laura Arias Self - patient is the insured 4
--- NOTE | 2024-11-12 13:29 | XR_ITS ---
The [address] [address] Patient Name: SHAHLA THAPA MRN: [id number] date: 1980 Sex: F Assigned Patient Location: ER Current Patient Location: Accession/Order Number: [id number] Exam Date: 11/12/2024 13:40 Report Date: 11/12/2024 14:22 At the request of: MARIELA CHAPIN Procedure: XR abdomen 1V KUB: CLINICAL INFORMATION: Constipation. COMPARISON: None FINDINGS: Moderate stool burden without obstruction. Osseous structures demonstrate degenerative change. No free air. XR/XR abdomen 1V IMPRESSION: EVIDENCE OF CONSTIPATION. NO ACUTE PROCESS. Impression dictated by: Scott Callejas Jr., D.O. 11/12/2024 2:22 PM Dictation Location: [place] [address] Electronically authenticated by: [id number] Y Date: 11/12/2024 14:22
--- NOTE | 2024-11-12 13:31 | ED.GENADUL1 ---
HPI HPI - General Adult General Chief complaint: Abdominal Pain Stated complaint: CONSTIPATION Time Seen by Provider: 11/12/24 13:07 Source: patient Mode of arrival: walk-in Limitations: no limitations History of Present Illness HPI narrative: Patient is a 44-year-old female that presents to the emergency department with complaints of constipation for a week and a half after she had eaten some bad canned tomatoes and had a bout of diarrhea. She does have a history of hypertension and irritable bowel syndrome and does take Plavix/aspirin. She did not take any abortive diarrhea medications at that time. She states that she has been having flatus since the episodes of diarrhea. She denies N/V. She does have a past surgical history of tubal ligation, cyst removal from her liver with bile duct reconstruction, and a cholecystectomy. She denies any chest pain or shortness of breath. She has not tried any [id number] medications to help with her constipation. She states that these do not work and these give her anxiety. Related Data Home Medications ?Medication ?Instructions ?Recorded ?Confirmed gabapentin 300 mg capsule 600 mg PO TID 05/09/23 10/14/24 olmesartan 20 1 tab PO DAILY 05/09/23 10/14/24 mg-hydrochlorothiazide 12.5 mg tablet omeprazole 40 mg capsule,delayed 40 mg PO .BIDAC 05/09/23 10/14/24 release albuterol sulfate 90 mcg/actuation 2 puff inhalation Q4H PRN 02/12/24 10/14/24 aerosol inhaler shortness of breath or wheezing cholecalciferol (vitamin D3) 50 50 mcg PO DAILY 02/12/24 10/14/24 mcg (2,000 unit) tablet lorazepam 1 mg tablet 1 mg PO TID PRN anxiety 02/12/24 10/14/24 olanzapine 5 mg tablet 5 mg PO BID PRN agitation 02/12/24 10/14/24 aspirin 81 mg tablet,delayed 81 mg PO DAILY 05/21/24 10/14/24 release bupropion HCl 300 mg 24 hr tablet, 300 mg PO DAILY 05/21/24 10/14/24 extended release hydroxyzine pamoate 25 mg capsule 75 mg PO TID PRN anxiety 05/21/24 10/14/24 Held on 10/14/24. Instructions: Doctor's Order levomilnacipran 20 mg capsule,24 20 mg PO DAILY 05/21/24 10/14/24 hr,extended release (Fetzima) metoprolol succinate 50 mg mg PO 10/14/24 tablet,extended release 24 hr naltrexone 50 mg tablet 50 mg PO DAILY 10/14/24 10/14/24 tiotropium bromide 18 mcg capsule inhalation 10/14/24 with inhalation device (Spiriva with HandiHaler) Previous Rx's ?Medication ?Instructions ?Recorded atorvastatin 40 mg tablet 40 mg PO DAILY #30 tabs 05/08/23 clopidogrel 75 mg tablet (Plavix) 75 mg PO DAILY #30 tabs 05/08/23 meclizine 25 mg tablet 25 mg PO TID PRN dizziness #14 tabs 09/14/24 magnesium citrate (Citrate of 296 ml PO DAILY PRN constipation 11/12/24 Magnesia oral) #296 mL Allergies Allergy/AdvReac Type Severity Reaction Status Date / Time ciprofloxacin (From Cipro) Allergy Severe Swelling Verified 11/12/24 13:10 of Lip/Tongue/Throat metronidazole (From Flagyl) Allergy Severe Swelling Verified 11/12/24 13:10 of Lip/Tongue/Throat Penicillins Allergy Severe Swelling Verified 11/12/24 13:10 of Lip/Tongue/Throat Opioid HPI Opioid Management Most Recent Opioid Data: Last Pain Scale 0 05/24/24, 04:04 Last ORT Total Score 3 05/21/24, 23:57 Last ORT Risk Category Low Risk 05/21/24, 23:57 Review of Systems ROS Status of ROS 10 or more systems reviewed and unremarkable except as noted in history and below [facility] Medical History COPD (chronic obstructive pulmonary disease) with acute bronchitis ?J44.0 - Chronic obstructive pulmonary disease with (acute) lower respiratory infection (ICD-10) ?J20.9 - Acute bronchitis, unspecified (ICD-10) Acute renal insufficiency ?N28.9 - Disorder of kidney and ureter, unspecified (ICD-10) Sleep apnea syndrome ?G47.30 - Sleep apnea, unspecified (ICD-10) Obesity ?E66.9 - Obesity, unspecified (ICD-10) Tobacco abuse ?Z72.0 - Tobacco use (ICD-10) Prediabetes ?R73.03 - Prediabetes (ICD-10) Hyperlipidemia ?E78.5 - Hyperlipidemia, unspecified (ICD-10) ?Z34.90 - Encounter for supervision of normal , unspecified, unspecified trimester (ICD-10) Abdominal pain ?R10.9 - Unspecified abdominal pain (ICD-10) Elevated troponin ?R79.89 - Other specified abnormal findings of blood chemistry (ICD-10) Demand ischemia ?I24.89 - Other forms of acute ischemic heart disease (ICD-10) IAM (acute kidney injury) ?N17.9 - Acute kidney failure, unspecified (ICD-10) Peripheral vascular disease ?I73.9 - Peripheral vascular disease, unspecified (ICD-10) Acute renal failure ?N17.9 - Acute kidney failure, unspecified (ICD-10) Pneumonia ?J18.9 - Pneumonia, unspecified organism (ICD-10) Acute kidney injury ?N17.9 - Acute kidney failure, unspecified (ICD-10) Acute hypotension ?I95.9 - Hypotension, unspecified (ICD-10) Schizo affective schizophrenia ?F25.9 - Schizoaffective disorder, unspecified (ICD-10) delivery delivered ?O82 - Encounter for delivery without indication (ICD-10) Cholecystectomy planned Bilateral carpal tunnel syndrome ?G56.03 - Carpal tunnel syndrome, bilateral upper limbs (ICD-10) Left adrenal mass ?E27.8 - Other specified disorders of adrenal gland (ICD-10) Raynauds disease ?I73.00 - Raynaud's syndrome without gangrene (ICD-10) Nicotine dependence ?F17.200 - Nicotine dependence, unspecified, uncomplicated (ICD-10) GERD without esophagitis ?K21.9 - Gastro-esophageal reflux disease without esophagitis (ICD-10) Irritable bowel syndrome (IBS) ?K58.9 - Irritable bowel syndrome, unspecified (ICD-10) Left ventricular hypertrophy ?I51.7 - Cardiomegaly (ICD-10) Asthma ?J45.909 - Unspecified asthma, uncomplicated (ICD-10) Vitamin D deficiency ?E55.9 - Vitamin D deficiency, unspecified (ICD-10) SHARI (obstructive sleep apnea) ?G47.33 - Obstructive sleep apnea (adult) (pediatric) (ICD-10) Anxiety disorder with panic attacks ?F41.9 - Anxiety disorder, unspecified (ICD-10) Depression ?F32.A - Depression, unspecified (ICD-10) Hypertension ?I10 - Essential (primary) hypertension (ICD-10) Surgical History H/O removal of cyst ?Z98.890 - Other specified postprocedural states (ICD-10) H/O cardiac catheterization ?Z98.890 - Other specified postprocedural states (ICD-10) H/O tubal ligation ?Z98.51 - Tubal ligation status (ICD-10) Family History Mother Family history of stroke Family history of cancer Social History Highest level of school completed/degree received: high school graduate Little interest or pleasure in doing things: not at all Feeling down, depressed, or hopeless: not at all Exam Narrative Exam Narrative: General: No distress, age-appropriate Skin: Warm, dry, no pallor. No rash. Head: Normocephalic, atraumatic. Neck: Supple, non-tender. Eye: Pupils are equal, round and EOMI. No scleral icterus. Ears, Nose, Mouth, and Throat: No nasal mucosal hypertrophy. Oral mucosa is moist, no posterior oropharynx erythema, uvula is mid-line Cardiovascular: Regular Rate and Rhythm without murmur, gallop or rub. Respiratory: No accessory muscle use or respiratory distress. Lungs are clear to auscultation, no wheezing, rales or rhonchi Chest Wall: no tenderness Back: No midline thoracic or lumbar vertebral tenderness. Musculoskeletal: Full ROM of all extremities, no calf or popliteal tenderness GI: Abdomen is soft, mildly distended, non tender to palpation. No masses appreciated. No rebound, guarding, or rigidity noted. RUQ healed surgical scars. Neurological: A&O x4. No cranial nerve dysfunction observed. No truncal ataxia. Moves all extremities. Sensation intact. Psychiatric: Cooperative and interactive. Normal mood and affect. Constitutional Vital Signs, click to edit/add: Last Vital Signs Temp 98 F 11/12/24 13:11 Pulse 75 11/12/24 13:11 Resp 20 11/12/24 13:11 BP 98/59 11/12/24 13:11 Pulse Ox 97 11/12/24 13:11 Course Vital Signs Vital signs: Vital Signs Temperature 98 F 11/12/24 13:11 Pulse Rate 75 11/12/24 13:11 Respiratory Rate 20 11/12/24 13:11 Blood Pressure 98/59 11/12/24 13:11 Pulse Oximetry 97 11/12/24 13:11 Temperature 98 F 11/12/24 13:11 Pulse Rate 75 11/12/24 13:11 Respiratory Rate 20 11/12/24 13:11 Blood Pressure 98/59 11/12/24 13:11 Pulse Oximetry 97 11/12/24 13:11 Medical Decision Making MDM Narrative Medical decision making narrative: 44-year-old female presents to the emergency department with complaints of constipation x 1.5 weeks after a bout of diarrhea after eating some bad canned tomatoes. She does have a PMH of IBS and HTN. She has been passing flatus. On exam she is mildly distended but is non tender. She has a PSH of Liver Cyst removal/bile duct reconstruction and Cholecystectomy. HR stable on arrival, BP systolic in 90's but asymptomatic. Non toxic appearing. She has been eating/drinking as normal. Denies N/V. She has not tried OTC remedies for constipation at home as she tells me they don't work. KUB ordered. X-ray reviewed and reveals constipation, no acute process. I did did again discuss treatment for this and results of the xray and she would like to try orally first. I did give her Dulcolax here and send in a prescription for mag citrate bottle. My clinical opinion is that this is constipation and not a small bowel obstruction or partial obstruction. She does have bowel sounds present on exam. She is passing flatus. She is likely having an IBS flare. She was discharged with mag citrate with plan to follow-up with her primary care physician Differential Diagnosis Differential Diagnosis: Partial SBO, Ileus, IBS flare Imaging Data Abdominal x-ray: Attestation: I have reviewed the pertinent imaging results. Radiologist's impression: ITS Impressions Abdomen X-Ray 11/12/24 13:29 IMPRESSION: EVIDENCE OF CONSTIPATION. NO ACUTE PROCESS. Impression dictated by: Scott Callejas Jr., D.O. 11/12/2024 2:22 PM Dictation Location: [place] [id number] Electronically authenticated by: [id number] Y Date: 11/12/2024 14:22 Discharge Plan Discharge Chief Complaint: Abdominal Pain Clinical Impression: Constipation Patient Disposition: Home, Self-Care Time of Disposition Decision: 14:03 Condition: Good Mode of Transportation: Private Vehicle Prescriptions / Home Meds: New magnesium citrate [Citrate of Magnesia] Solution 296 ml PO DAILY PRN (Reason: constipation) Qty: 296 0RF No Action clopidogrel [Plavix] 75 mg tablet 75 mg PO DAILY Qty: 30 0RF atorvastatin 40 mg tablet 40 mg PO DAILY Qty: 30 0RF gabapentin 300 mg capsule 600 mg PO TID olmesartan-hydrochlorothiazide 20-12.5 mg tablet 1 tab PO DAILY omeprazole 40 mg capsule,delayed release(DR/EC) 40 mg PO .BIDAC albuterol sulfate 90 mcg/actuation HFA aerosol inhaler 2 puff INHALATION Q4H PRN (Reason: shortness of breath or wheezing) cholecalciferol (vitamin D3) 50 mcg (2,000 unit) tablet 50 mcg PO DAILY lorazepam 1 mg tablet 1 mg PO TID PRN (Reason: anxiety) olanzapine 5 mg tablet 5 mg PO BID PRN (Reason: agitation) meclizine 25 mg tablet 25 mg PO TID PRN (Reason: dizziness) Qty: 14 0RF naltrexone 50 mg tablet 50 mg PO DAILY metoprolol succinate 50 mg tablet extended release 24 hr PO tiotropium bromide [Spiriva with HandiHaler] 18 mcg capsule, w/inhalation device INHALATION aspirin 81 mg tablet,delayed release (DR/EC) 81 mg PO DAILY bupropion HCl 300 mg tablet extended release 24 hr 300 mg PO DAILY hydroxyzine pamoate 25 mg capsule 75 mg PO TID PRN (Reason: anxiety) Fetzima 20 mg capsule,extended release 24 hr 20 mg PO DAILY Print Language: Cypriot Instructions: Constipation (DC) Additional Instructions: You are seen in the emergency department for constipation. Your exam and test today did not show signs of bowel obstruction or another emergency. Your symptoms are most consistent with functional constipation. Return to the ER immediately if you develop: - Severe abdominal pain or bloating. - Your inability to keep fluids down. - No bowel movement and no passage of gas. - Bleeding or black/tarry stools. - Chills, or weakness. Also if you develop any other new or worsening symptoms you can return to the emergency department for evaluation. Referrals: MILLIE MANDEL [Primary Care Provider, Family Practice] - 1 week Discharge Date/Time: 11/12/24 14:22
--- OUTSIDE RECORDS SUMMARY | 2024-11-12 13:45 | XMS_ITS | CCD ---
Author Organization [facility] Care Team Providers Care Silk Trimmer Name Role Phone DIPESH MORRIS Unavailable Unavailable TAMARA CALERO Unavailable Unavailable [place] ENVIRONMENTAL SCIENCE PROFESSOR-SAP SPECIALIST, Debo Unavailable Dennis Sarmiento MD Unavailable [place] ENVIRONMENTAL SCIENCE PROFESSOR-SAP SPECIALIST, Marcella Unavailable [phone] Tamara Calero Unavailable Dennis Sarmiento MD Unavailable [place] ENVIRONMENTAL SCIENCE PROFESSOR-SAP SPECIALIST, Marcella Unavailable [phone] NICKYC, DR SHAH Primary Care Unavailable JAGJIT, [...] Consulting Unavailable Dennis Sarmiento MD Unavailable [place] ENVIRONMENTAL SCIENCE PROFESSOR-SAP SPECIALIST, Marcella Unavailable [phone] Abdias, DO Tamara Primary Care Provider DO Antolin Abarca Emergency Provider [phone] MD Geo Loomis Admit Provider [phone] MD Geo Loomis Attending Provider Abdias, DO Tamara Primary Care Provider DO Antolin Abarca Emergency Provider MD Geo Loomis Admit Provider MD Geo Loomis Attending Provider [phone] JOHAN STEPHENS Referring Unavailable PROVIDER, UNKNOWN Admitting Unavailable PROVIDER, UNKNOWN Attending Unavailable DENNIS NICHOLE Referring Unavailable PROVIDER, UNKNOWN Admitting Unavailable PROVIDER, UNKNOWN Attending Unavailable PATIENT, SELF Referring Unavailable PROVIDER, UNKNOWN Admitting Unavailable PROVIDER, UNKNOWN Attending Unavailable Chloé WILSONSAP SPECIALIST, Marcella Unavailable Priyanka Lemon Unavailable Abdisa, DO Seayew Primary Care Provider [phone] MD Vivek Antoine Attending Provider Abdias, Tamara Primary Care Provider MD Vivek Antoine Attending Provider FARNAZ Mandel Primary Care Provider Noah [facility] Junie Walker Emergency Provider Abdias, DO [place] Primary Care Provider MD Vivek Antoine Attending Provider [phone] STEPHANIE WEBSTER Attending Unavailable TAMARA CALERO Referring Unavailable ABDIAS, TAMARA A Primary Care Unavailable ABDIAS, TAMARA A Referring Unavailable ABDIAS, TAMARA A Primary Care Unavailable STEPHANIE WEBSTER Attending Unavailable ABDIAS, TAMARA Hopson Referring Unavailable TEQUILA, JOSETTE S Primary Care Unavailable Abdias, Tamara Primary Care Provider MD Vivek Antoine Attending Provider [phone] DO Geena Caleroew Primary Care Provider [phone] MD Vivek Antoine Attending Provider MD Art Pa Emergency Provider [phone] MD Jean Paul Loomismi Admit Provider MD Geo Loomis Attending Provider [phone] DO Abdias Tamara Primary Care Provider MD Vivek Antoine Attending Provider Josette Gore Primary Care Provider Abdias JACKSON Tamara Primary Care Provider Vivek Antoine MD Attending Provider Tamara Calero DO A Primary Care Provider Abdias JACKSON, Tamara Primary Care Provider Vivek Antoine MD Attending Provider Tequila MCKINNEY-C, Josette Springer Primary Care Provider [phone] Cole Cast DO Emergency Provider Vivek Antoine MD Admit Provider Josette Gore Primary Care Provider Vivek Antoine MD Attending Provider Abdias JACKSON Tamara Primary Care Provider Abdias JACKSON, Tamara Primary Care Provider Rosendo KELSEY, Heladio Villalobos Emergency Provider CORNELL RODRIGUEZ Attending Unavailable PAT CALLAHAN Referring Unavailable ERASTO DAWSON Admitting Unavailable SHREYAS RODRIGUEZ Attending Unavailable VIRA HEATH Referring Unavailable VIRA HEATH Referring Unavailable CORNELL RODRIGUEZ Attending Unavailable BENITO PRADO Attending Unavailable Josette Mandel Primary Care Unavailable Arash, Vievk Attending Unavailab le Arash, Vivek Admitting Unavailab Josette Gonzales Primary Care Unavailable Heladio Robbins Jr Attending Unavailable Heladio Robbins Jr Admitting Unavailable Tamara Calero Primary Care Unavailable Arash, Vivek Attending Unavailab le Arash, Vivek Admitting Unavailab Josette Gonzales Primary Care Unavailable VladislavZuleymaGeo Admitting Unavailable Arash, Vivek Attending Unavailab le Allergies Allergy Classification Reported Allergen(s) Allergy Type Date of Onset Reaction(s) Facility (20 sources) Ciprofloxacin; Translations: [CIPROFLOXACIN] Drug Allergy 11-02-19 13 [facility] Phone: Comment on above: Patient not fully ce rtain of reaction but believes it caused flu-like symptoms (20 sources) metroNIDAZOLE; Translations: [METRONIDAZOLE] Drug Allergy 10-13-19 19 Edema, Other (See Comments) Catarizm Other Comment on above: Patient not sure of reaction but states a previous physician informed her she had reacted to it. (20 sources) Penicillins; Translations: [PENICILLINS] Propensity to adverse reactions to drug 10-13-19 19 Edema, Swelling [facility] (20 sources) Penicillin G; Translations: [PENICILLIN G] Drug Allergy 10-13-19 19 swelling, Facial Swelling [facility] (1 source) Ciprofloxacin Drug Allergy 10-06-19 20 [facility] (1 source) metroNIDAZOLE Drug Allergy 10-06-19 20 [facility] (1 source) Penicillin Drug Allergy 10-06-19 [facility] (16 sources) Quinolones (Antibiotic); Translations: [Quinolones] Propensity to adverse reactions 05-11-19 23 Fatigued [facility] (8 sources) ciprofibrate; Translations: [CIPROFIBRATE] Drug Allergy 10-13-19 19 Facial Swelling [facility] (1 source) Ciprofloxacin Drug Allergy 07-07-19 [facility] (1 source) metroNIDAZOLE Drug Allergy 07-07-19 [facility] (1 source) Penicillin Drug Allergy 07-07-19 [facility] Medications Current Medications Medication Drug Class(es) Dates Sig (Normalized) Sig (Original) acetaminophen 325 mg oral tablet (18 sources) Start: 08-04-2021 take 2 tablets by [...] 2023 8:55am clonazePAM 0.5 mg oral tablet (20 sources) Benzodiazepine Start: 06-23-2021 take 1 tablet [...] SUSHANT BRISENO take 1 capsule by mo [facility] three times daily hydrOXYzine Pamoate 50 [...] Start: 04-24-2023 take 1 capsule by mo [facility] once daily Levomilnacipran Active 40 MG [...] 2022 10:25am take 1 capsule by mo [facility] every twenty-four hours in the morning [...] 2:58pm Start: 11-08-2023 [facility] [...] 7:46pm naloxone hydrochloride 40 mg/ml nasal spray (11 sources) Opioid Antagonist Start: 08-04-2021 naloxone 4 m g/0.1 mL nasal liquid Use 1 [place] in one nostril (alternate sides) as needed [...] hours as needed for pain Hydrocodone-Acetam inophen ([place]) 5-325 mg tablet Discontinued 1 TAB PO [...] April 02, 2021 May 11, 2022 1:32am [id number] 200 actuat albuterol 0.09 mg/actuat metered dose [...] Note: Source Status: Taking; Refills: 0; Provider: Abidas Hopson Start: 05-11-2022 End: 04-24-2023 take 1 [...] Start: 12-20-2022 take 1 capsule by mo [facility] every twelve hours Doxycycline Monohydrate 100 [...] day; Note: Source Status: Taking; Provider: 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 INSULIN] Onset: 3 Episodic [...] Onset: 2 04-25-2021 Chronic Other liver diseases (19 sources) Liver cyst; Translations: [Other specified diseases [...] Onset: 06-22-2022 06-22-2022 Episodic Other gastrointestinal disorders (2 sources) Intra-abdominal collection; Translations: [Other ascites] Onset: 04-25-2021 [...] Range Facility Office Visiton 08-06-2024 Follow-up visit [id number] Shahla Arias 1980 F Date Provider Department Center 08/06/2024 CORNELL SCOTT [place] Family History Problem Relation Age of Onset Hypertension Mother Cancer Mother Stroke Mother Family Status - Relation Status Age at Mother Father Alive Sister Alive Brother Alive Level of Service:44324 [place] OFFICE/OUTPATIENT ESTABLISHED HIGH MDM 40 MIN Normal [facility] Orders Onlyon 08-06-2024 Orders Only [id number] Shahla Arias 1980 F Date Provider Department Center 08/06/2024 MAIA SHAW [place] Family History Problem Relation Age of Onset Hypertension Mother Cancer Mother Stroke Mother Family Status - Relation Status Age at Mother Father Alive Sister Alive Brother Alive Normal [facility] Alanine aminotransferase [En zymatic activity/volume] in Serum or PlasmaOrdered By: Heladio Robbins on 07-06-2024 ALT [Catalytic activity/Vol] Alanine aminotransferase [Enzymatic activity/volume] in Serum or Plasma 7-52 [facility] Albumin [Mass/volume] in Ser um or Plasma by Bromocresol green (BCG) dye binding methoOrdered By: Heladio Robbins on 07-06-2024 Albumin BCG dye [Mass/Vol] Albumin [Mass/volume] in Serum or Plasma by Bromocresol green (BCG) dye binding metho 3.5-5.7 [facility] Alkaline phosphatase [Enzyma tic activity/volume] in Serum or PlasmaOrdered By: Heladio Robbins on 07-06-2024 ALP [Catalytic activity/Vol] Alkaline phosphatase [Enzymatic activity/volume] in Serum or Plasma 34-104 [facility] Amphetamine Screen Ql (U)Ord ered By: Heladio Robbins on 07-06-2024 Amphetamines Ql (U) Amphetamines screen Negativ e [facility] Appearance of UrineOrdered B y: Heladio Robbins on 07-06-2024 Appearance (U) Urine appearance Clear [facility] Aspartate aminotransferase [ Enzymatic activity/volume] in Serum or PlasmaOrdered By: Heladio Robbins on 07-06-2024 AST [Catalytic activity/Vol] Aspartate aminotransferase [Enzymatic activity/volume] in Serum or Plasma 13-39 [facility] Barbiturates [Presence] in U rine by Screen methodOrdered By: Heladio Robbins on 07-06-2024 Barbiturates Screen Ql (U) Barbiturates [Presence] in Urine by Screen method Negative [facility] Basophils Auto (Bld) [#/Vol] Ordered By: Heladio Robbins on 07-06-2024 Basophils (Bld) [#/Vol] Automated basoph il count 0.0-0.2 [facility] Basophils/100 WBC Auto (Bld) Ordered By: Heladio Robbins on 07-06-2024 Basophils/100 WBC (Bld) Automated basophil % . [facility] Benzodiazepines Screen Ql (U )Ordered By: Heladio oRbbins on 07-06-2024 Benzodiazepines Ql (U) Benzodiazepines [Presence] in Urine by Screen method Negative [facility] Benzoylecgonine [Presence] i n Urine by Screen methodOrdered By: Heladio Robbins on 07-06-2024 Benzoylecgonine Screen Ql (U) Benzoylecgonine [Presence] in Urine by Screen method Negative [facility] Bilirubin Test strip Ql (U)O rdered By: Heladio Robbins on 07-06-2024 Bilirubin Ql (U) Bilirubin.total [Presence] in Urine by Test strip Negative [facility] Bilirubin.total [Mass/volume ] in Serum or PlasmaOrdered By: Heladio Robbins on 07-06-2024 Bilirubin [Mass/Vol] Bilirubin.total [Mass/volume] in Serum or Plasma 0.3-1.0 [facility] Calcium [Mass/volume] in Ser um or PlasmaOrdered By: Heladio Robbins on 07-06-2024 Calcium [Mass/Vol] Calcium [Mass/volume ] in Serum or Plasma 8.6-10.3 [facility] Cannabinoids [Presence] in U rine by Screen methodOrdered By: Heladio Robbins on 07-06-2024 Cannabinoids Screen Ql (U) Cannabinoids [Presence] in Urine by Screen method Negative [facility] Comment on above: These are unconfirme [...] l [Moles/volume] in Serum or Plasma 21.0-31.0 [facility] Chloride [Moles/volume] in S monse or PlasmaOrdered By: Heladio Robbins on 07-06-2024 Chloride [Moles/Vol] Chloride [Moles/volume] in Serum or Plasma 98-107 [facility] Color Auto (U)Ordered By: Bin Robbins on 07-06-2024 Color (U) Color of Urine by Auto Yellow Fi [facility] Complete Blood Count Auto Di ffon 07-06-2024 Basophils (Bld) [#/Vol] 0.1 10*3/uL Normal 0.0-0.2 [facility] Comment on above: Result Comment: PERF ORMED BY: [place] [address] PATHOLOGIST SEAFOOD TECHNOLOGY SPECIALIST STEPHANIE FAUSTIN M.D. Performed By: #### C MP, ETOH, CBC #### [address] Basophils/100 WBC (Bld) 0.5 % Normal . T becky [facility] Comment on above: Performed By: #### C MP, ETOH, CBC #### [address] Eosinophils (Bld) [#/Vol] 0.0 10*3/uL Normal 0.0-0.45 [facility] Comment on above: Performed By: #### C MP, ETOH, CBC #### [address] Eosinophils/100 WBC (Bld) 0.1 % Normal . [facility] Comment on above: Performed By: #### C MP, ETOH, CBC #### [address] Erythrocyte distribution width (RBC) [Ratio] 16.4 % High 11.9-15.3 [facility] Comment on above: Performed By: #### C MP, ETOH, CBC #### [address] Hematocrit (Bld) [Volume fraction] 34.8 % Normal 34.0-46.4 [facility] Comment on above: Performed By: #### C MP, ETOH, CBC #### [address] Hemoglobin (Bld) [Mass/Vol] 11.7 g/dL Low 11.8-15.4 [facility] Comment on above: Performed By: #### C MP, ETOH, CBC #### [address] Lymphocytes (Bld) [#/Vol] 2.1 10*3/uL Normal 1.00-4.8 [facility] Comment on above: Performed By: #### C MP, ETOH, CBC #### [address] Lymphocytes/100 WBC (Bld) 13.5 % Normal . [facility] Comment on above: Performed By: #### C MP, ETOH, CBC #### [address] MCH (RBC) [Entitic mass] 29.8 pg Normal 24.7-34.3 [facility] Comment on above: Performed By: #### C MP, ETOH, CBC #### [address] MCV (RBC) [Entitic vol] 88.7 fL Normal 80-100 [facility] Comment on above: Performed By: #### C MP, ETOH, CBC #### [address] Mean Corpuscular HGB Conc 33.5 g/dL Normal 32.0-35.0 [facility] Comment on above: Performed By: #### C MP, ETOH, CBC #### [place] [address] [place] Monocytes (Bld) [#/Vol] 1.0 10*3/uL High 0.0-0.8 [facility] Comment on above: Performed By: #### C MP, ETOH, CBC #### [address] Monocytes/100 WBC (Bld) 18.40 % Normal 0.00-20.00 [facility] Comment on above: Performed By: #### C MP, ETOH, CBC #### [place] [address] [place] Monocytes/100 WBC (Bld) 6.2 % Normal . [facility] Comment on above: Performed By: #### C MP, ETOH, CBC #### [address] Neutrophils (Bld) [#/Vol] 12.2 10*3/uL High 1.8-7.7 [facility] Comment on above: Performed By: #### C MP, ETOH, CBC #### [address] Neutrophils/100 WBC (Bld) 79.7 % Normal . [facility] Comment on above: Performed By: #### C MP, ETOH, CBC #### [facility] [address] NRBC% 0.0 /100{WBC} Normal 0-0.5 [facility] Comment on above: Performed By: #### C MP, ETOH, CBC #### [address] Platelet mean volume (Bld) [Entitic vol] 7.4 fL Normal 6.3-10.7 [facility] Comment on above: Performed By: #### C MP, ETOH, CBC #### [address] Platelets (Bld) [#/Vol] 330 10*3/uL Normal 150-450 [facility] Comment on above: Performed By: #### C MP, ETOH, CBC #### [address] RBC (Bld) [#/Vol] 3.92 10*6/uL Normal 3.60-5.[address] [facility] Comment on above: Performed By: #### C MP, ETOH, CBC #### [address] WBC (Bld) [#/Vol] 15.3 10*3/uL High 3.8-11.[address] [facility] Comment on above: Performed By: #### C MP, ETOH, CBC #### [address] Comprehensive Metabolic Pane michelle 07-06-2024 Albumin [Mass/Vol] 3.8 g/dL Normal 3.5-5.7 [facility] Comment on above: Performed By: #### C MP, ETOH, CBC #### [address] Albumin/Globulin [Mass ratio] 1.3 {ratio} Normal [facility] Comment on above: Performed By: #### C MP, ETOH, CBC #### [facility] [address] ALP [Catalytic activity/Vol] 72 U/L Normal 34-104 [facility] Comment on above: Performed By: #### C MP, ETOH, CBC #### [facility] [address] [place] [address] [place] ALT [Catalytic activity/Vol] 14 U/L Normal 7-52 [facility] Comment on above: Performed By: #### C MP, ETOH, CBC #### [facility] [address] Anion gap [Moles/Vol] 12.3 mmol/L Normal 6.0-15.0 [facility] Comment on above: Performed By: #### C MP, ETOH, CBC #### [facility] [address] AST [Catalytic activity/Vol] 13 U/L Normal 13-39 [facility] Comment on above: Performed By: #### C MP, ETOH, CBC #### [facility] [address] [place] [address] [place] Bilirubin [Mass/Vol] 0.4 mg/dL Normal 0.3-1.0 [facility] Comment on above: Performed By: #### C MP, ETOH, CBC #### [facility] [address] [place] [address] [place] Calcium [Mass/Vol] 9.4 mg/dL Normal 8.6-10.3 [facility] Comment on above: Performed By: #### C MP, ETOH, CBC #### [facility] [address] [place] [address] [place] Chloride [Moles/Vol] 102 mmol/L Normal 98-107 [facility] Comment on above: Performed By: #### C MP, ETOH, CBC #### [facility] [address] [place] [address] [place] CO2 [Moles/Vol] 24.5 mmol/L Normal 21.0-31.0 [facility] Comment on above: Performed By: #### C MP, ETOH, CBC #### [facility] [address] Creatinine [Mass/Vol] 0.86 mg/dL Normal 0.60-1.20 [facility] Comment on above: Performed By: #### C MP, ETOH, CBC #### [place] [address] [place] Creatinine Clr Calc Pharmacy 102.22 Normal [facility] Comment on above: Result Comment: PERF ORMED BY: [place] [address] PATHOLOGIST SEAFOOD TECHNOLOGY SPECIALIST STEPHANIE FAUSTIN M.D. Performed By: #### C MP, ETOH, CBC #### [address] GFR/1.73 sq M.predicted MDRD (S/P/Bld) [Vol rate/Area] mL/min/{1.73_m2} Normal [facility] Comment on above: Performed By: #### C MP, ETOH, CBC #### [place] [address] [place] Globulin (S) [Mass/Vol] 2.9 g/dL Normal T [facility] Comment on above: Performed By: #### C MP, ETOH, CBC #### [address] Glucose [Mass/Vol] 88 mg/dL Normal 70-100 [facility] Comment on above: Result Comment: [place] Glucose Reference Range is dependent on time and content of last meal. Glucose of more than 200 mg/dL in a nonstressed, ambulatory subject supports the diagnosis of Diabetes Mellitus. ADA recommended reference range Performed By: #### C MP, ETOH, CBC #### [address] Potassium [Moles/Vol] 3.8 mmol/L Normal 3.5-5.1 [facility] Comment on above: Performed By: #### C MP, ETOH, CBC #### [place] [address] Protein [Mass/Vol] 6.7 g/dL Normal 6.4-8.9 [facility] Comment on above: Performed By: #### C MP, ETOH, CBC #### [address] Sodium [Moles/Vol] 135 mmol/L Low 136-145 [facility] Comment on above: Performed By: #### C MP, ETOH, CBC #### [address] Urea nitrogen [Mass/Vol] 20 mg/dL Normal 7-25 [facility] Comment on above: Performed By: #### C MP, ETOH, CBC #### [address] Creatinine [Mass/volume] in Serum or PlasmaOrdered By: Heladio Robbins on 07-06-2024 Creatinine [Mass/Vol] Creatinine [Mass/volume] in Serum or Plasma 0.60-1.20 [facility] Drug Screen,Urineon 07-07-19 25 Amphetamine Screen,Urine Negative Normal Negative [facility] Comment on above: Performed By: #### U HCG, CUU, ADDONUAPLUS, URDS #### [address] Barbiturate Screen,Urine Negative Normal Negative [facility] Comment on above: Performed By: #### U HCG, CUU, ADDONUAPLUS, URDS #### [place] [address] [place] Benzodiazepines Screen,Urine Negative Normal Negative [facility] Comment on above: Performed By: #### U HCG, CUU, ADDONUAPLUS, URDS #### [place] [address] [place] Cannabinoid Screen,Urine Negative Normal Negative [facility] Comment on above: Result Comment: Thes e are unconfirmed results and should not be used for legal purposes. Drug Cut-Off Concentration: AMPH 1000 ng/mL SANDEEP 200 ng/mL JERSON 200 ng/mL COCM 300 ng/mL OP 300 ng/mL PCP 25 ng/mL THC 20 ng/mL PERFORMED BY: [place] [address] PATHOLOGIST SEAFOOD TECHNOLOGY SPECIALIST STEPHANIE FAUSTIN M.D. Performed By: #### U HCG, CUU, ADDONUAPLUS, URDS #### [facility] [address] Cocaine Screen,Urine Negative Normal Negative [facility] Comment on above: Performed By: #### U HCG, CUU, ADDONUAPLUS, URDS #### [facility] [address] Opiate Screen,Urine Negative Normal Negative [facility] Comment on above: Performed By: #### U HCG, CUU, ADDONUAPLUS, URDS #### [facility] [address] Phencyclidine Screen,Urine Negative Normal Negative [facility] Comment on above: Performed By: #### U HCG, CUU, ADDONUAPLUS, URDS #### [facility] [address] [place] [address] [place] Eosinophils Auto (Bld) [#/Vo l]Ordered By: Heladio Robbins on 07-06-2024 Eosinophils (Bld) [#/Vol] Automated eosinophil count 0.0-0.45 [facility] Eosinophils/100 WBC Auto (Bl d)Ordered By: Heladio Robbins on 07-06-2024 Eosinophils/100 WBC (Bld) Automated eosinophil % . [facility] Erythrocyte distribution wid th Auto (RBC) [Ratio]Ordered By: Heladio Robbins on 07-06-2024 Erythrocyte distribution width (RBC) [Ratio] Erythrocyte distribution width [Ratio] by Automated count High 11.9-15.3 [facility] Ethanol [Mass/volume] in Ser um or PlasmaOrdered By: Heladio Robbins on 07-06-2024 Ethanol [Mass/Vol] Ethanol [Mass/volume ] in Serum or Plasma [facility] Ethyl Alcohol Profileon Ethanol [Mass/Vol] 126 mg/dL Normal [facility] Comment on above: Performed By: #### C MP, ETOH, CBC #### [facility] [address] Percent Ethanol 0.126 % Normal [facility] Comment on above: Result Comment: PERF ORMED BY: [place] [address] PATHOLOGIST SEAFOOD TECHNOLOGY SPECIALIST STEPHANIE FAUSTIN M.D. Performed By: #### C MP, ETOH, CBC #### [address] Globulin Calc (S) [Mass/Vol] Ordered By: Heladio Robbins on 07-06-2024 Globulin (S) [Mass/Vol] Serum globulin measurement by calculation (mass/volume) [facility] Glucose [Mass/volume] in Ser um or PlasmaOrdered By: Heladio Robbins on 07-06-2024 Glucose [Mass/Vol] Glucose [Mass/volume ] in Serum or Plasma 70-100 [facility] Comment on above: ADA recommended refe [...] [Mass/volume] in Urine by Test strip Normal [facility] HCG ( test) IA.rapi d Ql (U)Ordered By: Heladio Robbins on 07-06-2024 HCG ( test) Ql (U) Urine human chorionic gonadotropin (hCG) detection by immunoassay [facility] HCG,Urineon 07-06-2024 Beta HCG ( test) Ql (U) Negative Normal [facility] Comment on above: Order Comment: Name Collection Type:: Clean-Voided Midstream Result Comment: PERF ORMED BY: [place] [address] PATHOLOGIST SEAFOOD TECHNOLOGY SPECIALIST STEPHANIE FAUSTIN M.D. Performed By: #### U HCG, CUU, ADDONUAPLUS, URDS #### [address] Hematocrit Auto (Bld) [Volum e fraction]Ordered By: Heladio Robbins on 07-06-2024 Hematocrit (Bld) [Volume fraction] Hematocrit [Volume Fraction] of Blood by Automated count 34.0-46.4 [facility] Hemoglobin Test strip Ql (U) Ordered By: Heladio Robbins on 07-06-2024 Hemoglobin Ql (U) Hemoglobin [Presence ] in Urine by Test strip Negative [facility] Hemoglobin [Mass/volume] in BloodOrdered By: Heladio Robbins on 07-06-2024 Hemoglobin (Bld) [Mass/Vol] Hemoglobin [Mass/volume] in Blood Low 11.8-15.4 [facility] Ketones Test strip Ql (U)Ord ered By: Heladio Robbins on 07-06-2024 Ketones Ql (U) Ketones [Presence] i n Urine by Test strip Negative [facility] Leukocyte esterase [Presence ] in Urine by Test stripOrdered By: Heladio Robbins on 07-06-2024 Leukocyte esterase Test strip Ql (U) Leukocyte esterase [Presence] in Urine by Test strip Negative [facility] Leukocytes [#/volume] correc hemalatha for nucleated erythrocytes in Blood by Automated counOrdered By: Heladio Robbins on 07-06-2024 WBC corrected for nucl RBC Auto (Bld) [#/Vol] Leukocytes [#/volume] corrected for nucleated erythrocytes in Blood by Automated coun High 3.8-11.6 [facility] Lymphocytes Auto (Bld) [#/Vo l]Ordered By: Heladio Robbins on 07-06-2024 Lymphocytes (Bld) [#/Vol] Lymphocytes [#/volume] in Blood by Automated count 1.00-4.8 [facility] Lymphocytes/100 WBC Auto (Bl d)Ordered By: Heladio Robbins on 07-06-2024 Lymphocytes/100 WBC (Bld) Lymphocytes/100 leukocytes in Blood by Automated count . [facility] MCH Auto (RBC) [Entitic mass ]Ordered By: Heladio Robbins on 07-06-2024 MCH (RBC) [Entitic mass] MCH [Entitic mass] by Automated count 24.7-34.3 [facility] MCHC Auto (RBC) [Mass/Vol]Or dered By: Heladio Robbins on 07-06-2024 MCHC (RBC) [Mass/Vol] MCHC [Mass/volume] by Automated count 32.0-35.0 [facility] MCV Auto (RBC) [Entitic vol] Ordered By: Heladio Robbins on 07-06-2024 MCV (RBC) [Entitic vol] MCV [Entitic vol ume] by Automated count 80-100 [facility] Monocyte distribution width [Entitic volume] in Blood by AutomatedOrdered By: Heladio Robbins on 07-06-2024 Monocyte distribution width Auto (Bld) [Entitic vol] Monocyte distribution width [Entitic volume] in Blood by Automated 0.00-20.00 [facility] Monocytes Auto (Bld) [#/Vol] Ordered By: Heladio Robbins on 07-06-2024 Monocytes (Bld) [#/Vol] Automated blood monocyte count High 0.0-0.8 [facility] Monocytes/100 WBC Auto (Bld) Ordered By: Heladio Robbins on 07-06-2024 Monocytes/100 WBC (Bld) Automated monocyte % . [facility] Neutrophils Auto (Bld) [#/Vo l]Ordered By: Heladio Robbins on 07-06-2024 Neutrophils (Bld) [#/Vol] Neutrophils [#/volume] in Blood by Automated count High 1.8-7.7 [facility] Neutrophils/100 WBC Auto (Bl d)Ordered By: Heladio Robbins on 07-06-2024 Neutrophils/100 WBC (Bld) Automated neutrophil % . [facility] Nitrite Test strip Ql (U)Ord ered By: Heladio Robbins on 07-06-2024 Nitrite Ql (U) Nitrite [Presence] i n Urine by Test strip Negative [facility] No Panel InformationOrdered By: Heladio Robbins on 07-06-2024 Estimated GFR (CKD-EPI) > 60.0 mL/Min [facility] Creatinine Clearance (Chem 102.22 [facility] Nucleated erythrocytes [Pres ence] in Blood by Automated countOrdered By: Heladio Robbins on 07-06-2024 Nucleated RBC Auto Ql (Bld) Nucleated erythrocytes [Presence] in Blood by Automated count 0-0.5 [facility] Opiates [Presence] in Urine by Screen methodOrdered By: Heladio Robbins on 07-06-2024 Opiates Screen Ql (U) Opiates [Presence] in Urine by Screen method Negative [facility] Phencyclidine Screen Ql (U)O rdered By: Heladio Robbins on 07-06-2024 Phencyclidine Ql (U) Phencyclidine [Presence] in Urine by Screen method Negative [facility] Platelet mean volume Auto (B ld) [Entitic vol]Ordered By: Heladio Robbins on 07-06-2024 Platelet mean volume (Bld) [Entitic vol] Platelet mean volume [Entitic volume] in Blood by Automated count 6.3-10.7 [facility] Platelets Auto (Bld) [#/Vol] Ordered By: Heladio Robbins on 07-06-2024 Platelets (Bld) [#/Vol] Platelets [#/vol ume] in Blood by Automated count 150-450 [facility] Potassium [Moles/volume] in Serum or PlasmaOrdered By: Heladio Robbins on 07-06-2024 Potassium [Moles/Vol] Potassium [Moles/volume] in Serum or Plasma 3.5-5.1 [facility] Protein Test strip (U) [Mass /Vol]Ordered By: Heladio Robbins on 07-06-2024 Protein (U) [Mass/Vol] Protein [Mass/vol ume] in Urine by Test strip Negative [facility] Protein [Mass/volume] in Ser um or PlasmaOrdered By: Heladio Robbins on 07-06-2024 Protein [Mass/Vol] Protein [Mass/volume ] in Serum or Plasma 6.4-8.9 [facility] RBC Auto (Bld) [#/Vol]Ordere d By: Heladio Robbins on 07-06-2024 RBC (Bld) [#/Vol] Erythrocytes [#/volume] in Blood by Automated count 3.60-5.00 [facility] Serum or plasma albumin/glob ulin mass ratioOrdered By: Heladio Robbins on 07-06-2024 Albumin/Globulin [Mass ratio] Serum or plasma albumin/globulin mass ratio [facility] Serum or plasma anion gap de terminationOrdered By: Heladio Robbins on 07-06-2024 Anion gap [Moles/Vol] Serum or plasma an ion gap determination 6.0-15.0 [facility] Sodium [Moles/volume] in Ser um or PlasmaOrdered By: Heladio Robbins on 07-06-2024 Sodium [Moles/Vol] Sodium [Moles/volume ] in Serum or Plasma Low 136-145 [facility] Specific gravity Test strip (U) [Rel density]Ordered By: Heladio Robbins on 07-06-2024 Specific gravity (U) [Rel density] Specific gravity of Urine by Test strip 1.001-1.030 [facility] Urea nitrogen [Mass/volume] in Serum or PlasmaOrdered By: Heladio Robbins on 07-06-2024 Urea nitrogen [Mass/Vol] Urea nitrogen [Mass/volume] in Serum or Plasma 7-25 [facility] Urinalysison 07-06-2024 Appearance (U) Clear Normal Clear [facility] Comment on above: Order Comment: Name Collection Type:: Clean-Voided Midstream Performed By: #### U HCG, CUU, ADDONUAPLUS, URDS #### [address] Bilirubin,Urine Negative Normal Negative [facility] Comment on above: Order Comment: Name Collection Type:: Clean-Voided Midstream Performed By: #### U HCG, CUU, ADDONUAPLUS, URDS #### [place] [address] [place] Color (U) Colorless Normal Yellow [facility] Comment on above: Order Comment: Name Collection Type:: Clean-Voided Midstream Performed By: #### U HCG, CUU, ADDONUAPLUS, URDS #### [place] [address] [place] Glucose Ql (U) Normal Normal Normal [facility] Comment on above: Order Comment: Name Collection Type:: Clean-Voided Midstream Performed By: #### U HCG, CUU, ADDONUAPLUS, URDS #### [place] [address] [place] Ketones Ql (U) Negative Normal Negative [facility] Comment on above: Order Comment: Name Collection Type:: Clean-Voided Midstream Performed By: #### U HCG, CUU, ADDONUAPLUS, URDS #### [address] Leukocyte esterase Test strip Ql (U) Negative Normal Negative [facility] Comment on above: Order Comment: Name Collection Type:: Clean-Voided Midstream Performed By: #### U HCG, CUU, ADDONUAPLUS, URDS #### [address] Nitrite,Urine Negative Normal Negative [facility] Comment on above: Order Comment: Name Collection Type:: Clean-Voided Midstream Performed By: #### U HCG, CUU, ADDONUAPLUS, URDS #### [address] Occult Blood,Urine Negative Normal Negative [facility] Comment on above: Order Comment: Name Collection Type:: Clean-Voided Midstream Performed By: #### U HCG, CUU, ADDONUAPLUS, URDS #### [address] pH (U) 5.5 [pH] Normal 5.0-9.0 [facility] Comment on above: Order Comment: Name Collection Type:: Clean-Voided Midstream Performed By: #### U HCG, CUU, ADDONUAPLUS, URDS #### [address] Protein,Urine Negative Normal Negative [facility] Comment on above: Order Comment: Name Collection Type:: Clean-Voided Midstream Performed By: #### U HCG, CUU, ADDONUAPLUS, URDS #### [address] Specificy Brilliant,Urine 1.004 Normal 1.001-1.030 [facility] Comment on above: Order Comment: Name Collection Type:: Clean-Voided Midstream Performed By: #### U HCG, CUU, ADDONUAPLUS, URDS #### [address] Urobilinogen,Urine Normal Normal Normal [facility] Comment on above: Order Comment: Name Collection Type:: Clean-Voided Midstream Performed By: #### U HCG, CUU, ADDONUAPLUS, URDS #### [facility] [address] [place] [address] [place] Urobilinogen Test strip (U) [Mass/Vol]Ordered By: Heladio Robbins on 07-06-2024 Urobilinogen (U) [Mass/Vol] Urobilinogen [Mass/volume] in Urine by Test strip Normal [facility] WBC Auto (Bld) [#/Vol]Ordere d By: Heladio Robbins on 07-06-2024 WBC (Bld) [#/Vol] Leukocytes [#/volume ] in Blood by Automated count High 3.8-11.6 [facility] pH Test strip (U)Ordered By: Heladio Robbins on 07-06-2024 pH (U) pH of Urine by Test strip 5.0-9.0 [facility] ECG 12 lead ECGon 06-12-2024 ECG 12 lead ECG [facility] [address] [place], [place] [id number] Electrocardiograph Report Signed Patient: Shahla Arias MR#: [id number] : 1980 Acct:[id number] Age/Sex: 44 / F ADM Date: 06/11/24 Loc: Room: [address] [place] [address] Type: ADM IN Attending Dr: Vivek Antoine [...] QT Abnormal ECG Confirmed by Kayla Herndon ([id number]) on 06/12/2024 10:51:46 AM Referred By: Electronically Signed By: Kayla Herndon Transcribed By: MUS Signed By Kayla Herndon MD 5 1051 Normal [facility] Alanine aminotransferase [En zymatic activity/volume] in Serum or PlasmaOrdered By: Cole Cast on 06-11-2024 ALT [Catalytic activity/Vol] Alanine aminotransferase [Enzymatic activity/volume] in Serum or Plasma 7-52 [facility] Albumin [Mass/volume] in Ser um or Plasma by Bromocresol green (BCG) dye binding methoOrdered By: Cole Cast on 06-11-2024 Albumin BCG dye [Mass/Vol] Albumin [Mass/volume] in Serum or Plasma by Bromocresol green (BCG) dye binding metho 3.5-5.7 [facility] Alkaline phosphatase [Enzyma tic activity/volume] in Serum or PlasmaOrdered By: Cole Cast on 06-11-2024 ALP [Catalytic activity/Vol] Alkaline phosphatase [Enzymatic activity/volume] in Serum or Plasma 34-104 [facility] Amphetamine Screen Ql (U)Ord ered By: Cole Cast on 06-11-2024 Amphetamines Ql (U) Amphetamines screen Negativ e [facility] Appearance of UrineOrdered B y: Cole Cast on 06-11-2024 Appearance (U) Urine appearance Clear [facility] Aspartate aminotransferase [ Enzymatic activity/volume] in Serum or PlasmaOrdered By: Cole Csat on 06-11-2024 AST [Catalytic activity/Vol] Aspartate aminotransferase [Enzymatic activity/volume] in Serum or Plasma 1339 [facility] Bacteria [Presence] in Urine by AutomatedOrdered By: Cole Cast on 06-11-2024 Bacteria Auto Ql (U) Bacteria [Presence] in Urine by Automated None Seen [facility] Barbiturates [Presence] in U rine by Screen methodOrdered By: Cole Cast on 06-11-2024 Barbiturates Screen Ql (U) Barbiturates [Presence] in Urine by Screen method Negative [facility] Basophils Auto (Bld) [#/Vol] Ordered By: Cole Cast on 06-11-2024 Basophils (Bld) [#/Vol] Automated basoph il count 0.0-0.2 [facility] Basophils/100 WBC Auto (Bld) Ordered By: Cole Cast on 06-11-2024 Basophils/100 WBC (Bld) Automated basophil % . [facility] Benzodiazepines Screen Ql (U )Ordered By: Cole Cast on 06-11-2024 Benzodiazepines Ql (U) Benzodiazepines [Presence] in Urine by Screen method Negative [facility] Benzoylecgonine [Presence] i n Urine by Screen methodOrdered By: Cole Cast on 06-11-2024 Benzoylecgonine Screen Ql (U) Benzoylecgonine [Presence] in Urine by Screen method Negative [facility] Bilirubin Test strip Ql (U)O rdered By: Cole Cast on 06-11-2024 Bilirubin Ql (U) Bilirubin.total [Presence] in Urine by Test strip Negative [facility] Bilirubin.total [Mass/volume ] in Serum or PlasmaOrdered By: Cole Cast on 06-11-2024 Bilirubin [Mass/Vol] Bilirubin.total [Mass/volume] in Serum or Plasma 0.3-1.0 [facility] Calcium [Mass/volume] in Ser um or PlasmaOrdered By: Cole Cast on 06-11-2024 Calcium [Mass/Vol] Calcium [Mass/volume ] in Serum or Plasma 8.6-10.3 [facility] Cannabinoids [Presence] in U rine by Screen methodOrdered By: Cole Cast on 06-11-2024 Cannabinoids Screen Ql (U) Cannabinoids [Presence] in Urine by Screen method Negative [facility] Comment on above: These are unconfirme [...] l [Moles/volume] in Serum or Plasma 21.0-31.0 [facility] Chloride [Moles/volume] in S monse or PlasmaOrdered By: Cole Cast on 06-11-2024 Chloride [Moles/Vol] Chloride [Moles/volume] in Serum or Plasma 98-107 [facility] Cholesterol [Mass/volume] in Serum or PlasmaOrdered By: Vivek Antoine on 06-11-2024 Cholesterol [Mass/Vol] Cholesterol [Mass/volume] in Serum or Plasma Low 140-200 [facility] Comment on above: Chol less than 200 m g/dl low riskChol 201-239 mg/dl borderline riskChol 240 mg/dl and greater high risk Cholesterol in HDL [Mass/vol ume] in Serum or PlasmaOrdered By: Vivek Antoine on 06-11-2024 Cholesterol in HDL [Mass/Vol] Serum or plasma high density lipoprotein (HDL) cholesterol measurement [facility] Comment on above: HDL CHOL ATP-III CLA SSIFICATION Cardiovascular RiskHDL > or equal to 60 mg/dL LOWHDL < 40 mg/dL HIGH Cholesterol in LDL Calc [Mas s/Vol]Ordered By: Vivek Antoine on 06-11-2024 Cholesterol in LDL [Mass/Vol] Cholesterol in LDL [Mass/volume] in Serum or Plasma by calculation 0-100 [facility] Comment on above: LDL ATP III CLASSIFI CATIONLDL less than 100 mg/dL OptimalLDL 100-129 mg/dL Near or above optimalLDL 130-159 mg/dL Borderline highLDL 160-189 mg/dL HighLDL greater than 189 mg/dL Very high Cholesterol in VLDL Calc [Ma ss/Vol]Ordered By: Vivek Antoine on 06-11-2024 Cholesterol in VLDL [Mass/Vol] Cholesterol in VLDL [Mass/volume] in Serum or Plasma by calculation [facility] Color Auto (U)Ordered By: Kelton Cast on 06-11-2024 Color (U) Color of Urine by Auto Yellow Fi [facility] Complete Blood Count Auto Di ffon 06-11-2024 Basophils (Bld) [#/Vol] 0.1 10*3/uL Normal 0.0-0.2 [facility] Comment on above: Result Comment: PERF ORMED BY: [facility] [address] [place] [address] PATHOLOGIST [employer]IST STEPHANIE FAUSTIN M.D. Performed By: #### U HCG, CUU, ADDONUAPLUS, URDS #### [address] Basophils/100 WBC (Bld) 1.1 % Normal . [facility] Comment on above: Performed By: #### U HCG, CUU, ADDONUAPLUS, URDS #### [address] Eosinophils (Bld) [#/Vol] 0.1 10*3/uL Normal 0.0-0.45 [facility] Comment on above: Performed By: #### U HCG, CUU, ADDONUAPLUS, URDS #### [address] Eosinophils/100 WBC (Bld) 0.9 % Normal . [facility] Comment on above: Performed By: #### U HCG, CUU, ADDONUAPLUS, URDS #### [address] Erythrocyte distribution width (RBC) [Ratio] 16.0 % High 11.9-15.3 [facility] Comment on above: Performed By: #### U HCG, CUU, ADDONUAPLUS, URDS #### [address] Hematocrit (Bld) [Volume fraction] 37.1 % Normal 34.0-46.4 [facility] Comment on above: Performed By: #### U HCG, CUU, ADDONUAPLUS, URDS #### [address] Hemoglobin (Bld) [Mass/Vol] 12.3 g/dL Normal 11.8-15.4 [facility] Comment on above: Performed By: #### U HCG, CUU, ADDONUAPLUS, URDS #### [address] Lymphocytes (Bld) [#/Vol] 2.6 10*3/uL Normal 1.00-4.8 [facility] Comment on above: Performed By: #### U HCG, CUU, ADDONUAPLUS, URDS #### [address] [address] [place] Lymphocytes/100 WBC (Bld) 25.4 % Normal . [facility] Comment on above: Performed By: #### U HCG, CUU, ADDONUAPLUS, URDS #### [address] MCH (RBC) [Entitic mass] 29.5 pg Normal 24.7-34.3 [facility] Comment on above: Performed By: #### U HCG, CUU, ADDONUAPLUS, URDS #### [address] MCV (RBC) [Entitic vol] 88.8 fL Normal 80-100 [facility] Comment on above: Performed By: #### U HCG, CUU, ADDONUAPLUS, URDS #### [address] Mean Corpuscular HGB Conc 33.2 g/dL Normal 32.0-35.0 [facility] Comment on above: Performed By: #### U HCG, CUU, ADDONUAPLUS, URDS #### [address] Monocytes (Bld) [#/Vol] 0.7 10*3/uL Normal 0.0-0.8 [facility] Comment on above: Performed By: #### U HCG, CUU, ADDONUAPLUS, URDS #### [address] Monocytes/100 WBC (Bld) 18.12 % Normal 0.00-20.00 [facility] Comment on above: Performed By: #### U HCG, CUU, ADDONUAPLUS, URDS #### [place] [address] [place] Monocytes/100 WBC (Bld) 7.1 % Normal . [facility] Comment on above: Performed By: #### U HCG, CUU, ADDONUAPLUS, URDS #### [place] [address] [place] Neutrophils (Bld) [#/Vol] 6.7 10*3/uL Normal 1.8-7.7 [facility] Comment on above: Performed By: #### U HCG, CUU, ADDONUAPLUS, URDS #### [address] Neutrophils/100 WBC (Bld) 65.5 % Normal . [facility] Comment on above: Performed By: #### U HCG, CUU, ADDONUAPLUS, URDS #### [address] NRBC% 0.1 /100{WBC} Normal 0-0.5 [facility] Comment on above: Performed By: #### U HCG, CUU, ADDONUAPLUS, URDS #### [address] Platelet mean volume (Bld) [Entitic vol] 7.7 fL Normal 6.3-10.7 [facility] Comment on above: Performed By: #### U HCG, CUU, ADDONUAPLUS, URDS #### [place] [address] [place] Platelets (Bld) [#/Vol] 311 10*3/uL Normal 150-450 [facility] Comment on above: Performed By: #### U HCG, CUU, ADDONUAPLUS, URDS #### [address] RBC (Bld) [#/Vol] 4.18 10*6/uL Normal 3.60-5.[address] [facility] Comment on above: Performed By: #### U HCG, CUU, ADDONUAPLUS, URDS #### [address] WBC (Bld) [#/Vol] 10.3 10*3/uL Normal 3.8-11.[address] [facility] Comment on above: Performed By: #### U HCG, CUU, ADDONUAPLUS, URDS #### [address] Comprehensive Metabolic Pane michelle 06-11-2024 Albumin [Mass/Vol] 4.0 g/dL Normal 3.5-5.7 [facility] Comment on above: Performed By: #### U HCG, CUU, ADDONUAPLUS, URDS #### [facility] [address] Albumin/Globulin [Mass ratio] 1.1 {ratio} Normal [facility] Comment on above: Performed By: #### U HCG, CUU, ADDONUAPLUS, URDS #### [facility] [address] ALP [Catalytic activity/Vol] 84 U/L Normal 34-104 [facility] Comment on above: Performed By: #### U HCG, CUU, ADDONUAPLUS, URDS #### [address] ALT [Catalytic activity/Vol] 22 U/L Normal 7-52 [facility] Comment on above: Performed By: #### U HCG, CUU, ADDONUAPLUS, URDS #### [place] [address] [place] Anion gap [Moles/Vol] 10.9 mmol/L Normal 6.0-15.0 [facility] Comment on above: Performed By: #### U HCG, CUU, ADDONUAPLUS, URDS #### [facility] [address] [place] [address] AST [Catalytic activity/Vol] 20 U/L Normal 13-39 [facility] Comment on above: Performed By: #### U HCG, CUU, ADDONUAPLUS, URDS #### [facility] [address] [place] [address] [place] Bilirubin [Mass/Vol] 0.4 mg/dL Normal 0.3-1.0 [facility] Comment on above: Performed By: #### U HCG, CUU, ADDONUAPLUS, URDS #### [facility] [address] [place] [address] Calcium [Mass/Vol] 9.8 mg/dL Normal 8.6-10.3 [facility] Comment on above: Performed By: #### U HCG, CUU, ADDONUAPLUS, URDS #### [address] Chloride [Moles/Vol] 103 mmol/L Normal 98-107 [facility] Comment on above: Performed By: #### U HCG, CUU, ADDONUAPLUS, URDS #### [address] CO2 [Moles/Vol] 29.2 mmol/L Normal 21.0-31.0 [facility] Comment on above: Performed By: #### U HCG, CUU, ADDONUAPLUS, URDS #### [address] Creatinine [Mass/Vol] 1.14 mg/dL Normal 0.60-1.20 [facility] Comment on above: Performed By: #### U HCG, CUU, ADDONUAPLUS, URDS #### [address] Creatinine Clr Calc Pharmacy 76.30 Normal [facility] Comment on above: Result Comment: PERF ORMED BY: [place] [address] PATHOLOGIST [employer] SPECIALIST STEPHANIE FAUSTIN M.D. Performed By: #### U HCG, CUU, ADDONUAPLUS, URDS #### [address] GFR/1.73 sq M.predicted MDRD (S/P/Bld) [Vol rate/Area] mL/min/{1.73_m2} Normal [facility] Comment on above: Performed By: #### U HCG, CUU, ADDONUAPLUS, URDS #### [address] Globulin (S) [Mass/Vol] 3.5 g/dL Normal [facility] Comment on above: Performed By: #### U HCG, CUU, ADDONUAPLUS, URDS #### [facility] [address] [place] [address] [place] Glucose [Mass/Vol] 105 mg/dL High 70-100 [facility] Comment on above: Result Comment: [facility] Glucose Reference Range is dependent on time and content of last meal. Glucose of more than 200 mg/dL in a nonstressed, ambulatory subject supports the diagnosis of Diabetes Mellitus. ADA recommended reference range Performed By: #### U HCG, CUU, ADDONUAPLUS, URDS #### [facility] [address] Potassium [Moles/Vol] 4.1 mmol/L Normal 3.5-5.1 [facility] Comment on above: Performed By: #### U HCG, CUU, ADDONUAPLUS, URDS #### [address] Protein [Mass/Vol] 7.5 g/dL Normal 6.4-8.9 [facility] Comment on above: Performed By: #### U HCG, CUU, ADDONUAPLUS, URDS #### [place] [address] [place] Sodium [Moles/Vol] 139 mmol/L Normal 136-145 [facility] Comment on above: Performed By: #### U HCG, CUU, ADDONUAPLUS, URDS #### [place] [address] [place] Urea nitrogen [Mass/Vol] 18 mg/dL Normal 7-25 [facility] Comment on above: Performed By: #### U HCG, CUU, ADDONUAPLUS, URDS #### [place] [address] [place] Creatinine [Mass/volume] in Serum or PlasmaOrdered By: Cole Cast on 06-11-2024 Creatinine [Mass/Vol] Creatinine [Mass/volume] in Serum or Plasma 0.60-1.20 [facility] Dipstick and Microscopicon 0 06-11-2024 Appearance (U) Clear Normal Clear [facility] Comment on above: Order Comment: Name Collection Type:: Clean-Voided Midstream Performed By: #### U HCG, CUU, ADDONUAPLUS, URDS #### [address] Bacteria,Urine Rare Normal None Seen [facility] Comment on above: Order Comment: Name Collection Type:: Clean-Voided Midstream Performed By: #### U HCG, CUU, ADDONUAPLUS, URDS #### [address] Bilirubin,Urine Negative Normal Negative [facility] Comment on above: Order Comment: Name Collection Type:: Clean-Voided Midstream Performed By: #### U HCG, CUU, ADDONUAPLUS, URDS #### [address] Color (U) Yellow Normal Yellow [facility] Comment on above: Order Comment: Name Collection Type:: Clean-Voided Midstream Performed By: #### U HCG, CUU, ADDONUAPLUS, URDS #### [address] Glucose Ql (U) Normal Normal Normal [facility] Comment on above: Order Comment: Name Collection Type:: Clean-Voided Midstream Performed By: #### U HCG, CUU, ADDONUAPLUS, URDS #### [address] Hyaline Casts,Urine 20-49 High 0-8 [facility] Comment on above: Order Comment: Name Collection Type:: Clean-Voided Midstream Performed By: #### U HCG, CUU, ADDONUAPLUS, URDS #### [address] [address] Ketones Ql (U) Trace High Negative [facility] Comment on above: Order Comment: Name Collection Type:: Clean-Voided Midstream Performed By: #### U HCG, CUU, ADDONUAPLUS, URDS #### [address] Leukocyte esterase Test strip Ql (U) 3+ High Negative [facility] Comment on above: Order Comment: Name Collection Type:: Clean-Voided Midstream Performed By: #### U HCG, CUU, ADDONUAPLUS, URDS #### [address] Mucus,Urine 1+ Critically abnormal [facility] Comment on above: Order Comment: Name Collection Type:: Clean-Voided Midstream Performed By: #### U HCG, CUU, ADDONUAPLUS, URDS #### [address] Nitrite,Urine Negative Normal Negative [facility] Comment on above: Order Comment: Name Collection Type:: Clean-Voided Midstream Performed By: #### U HCG, CUU, ADDONUAPLUS, URDS #### [address] Occult Blood,Urine Negative Normal Negative [facility] Comment on above: Order Comment: Name Collection Type:: Clean-Voided Midstream Performed By: #### U HCG, CUU, ADDONUAPLUS, URDS #### [address] pH (U) 5.5 [pH] Normal 5.0-9.0 [facility] Comment on above: Order Comment: Name Collection Type:: Clean-Voided Midstream Performed By: #### U HCG, CUU, ADDONUAPLUS, URDS #### [place] [address] [place] Protein (U) [Mass/Vol] 20 mg/dL High Negative [facility] Comment on above: Order Comment: Name Collection Type:: Clean-Voided Midstream Performed By: #### U HCG, CUU, ADDONUAPLUS, URDS #### [address] RBC,Urine 3-4 Normal 0-4 [facility] Comment on above: Order Comment: Name Collection Type:: Clean-Voided Midstream Performed By: #### U HCG, CUU, ADDONUAPLUS, URDS #### [address] Specificy Brilliant,Urine 1.025 Normal 1.001-1.030 [facility] Comment on above: Order Comment: Name Collection Type:: Clean-Voided Midstream Performed By: #### U HCG, CUU, ADDONUAPLUS, URDS #### [address] Squamous Epithelial Cell,Urine 5-9 High 0-2 [facility] Comment on above: Order Comment: Name Collection Type:: Clean-Voided Midstream Performed By: #### U HCG, CUU, ADDONUAPLUS, URDS #### [address] Urobilinogen,Urine 3 mg/dL High Normal [facility] Comment on above: Order Comment: Name Collection Type:: Clean-Voided Midstream Performed By: #### U HCG, CUU, ADDONUAPLUS, URDS #### [address] WBC,Urine 10-19 High 0-4 [facility] Comment on above: Order Comment: Name Collection Type:: Clean-Voided Midstream Performed By: #### U HCG, CUU, ADDONUAPLUS, URDS #### [address] Drug Screen,Urineon 06-12-19 25 Amphetamine Screen,Urine Negative Normal Negative [facility] Comment on above: Performed By: #### U HCG, CUU, ADDONUAPLUS, URDS #### [address] Barbiturate Screen,Urine Negative Normal Negative [facility] Comment on above: Performed By: #### U HCG, CUU, ADDONUAPLUS, URDS #### [address] Benzodiazepines Screen,Urine Negative Normal Negative [facility] Comment on above: Performed By: #### U HCG, CUU, ADDONUAPLUS, URDS #### [address] [place] [address] [place] Cannabinoid Screen,Urine Negative Normal Negative [facility] Comment on above: Result Comment: Thes e are unconfirmed results and should not be used for legal purposes. Drug Cut-Off Concentration: AMPH 1000 ng/mL SANDEEP 200 ng/mL JERSON 200 ng/mL COCM 300 ng/mL OP 300 ng/mL PCP 25 ng/mL THC 20 ng/mL PERFORMED BY: [place] [address] PATHOLOGIST [employer] TECHN[employer] SPECIALIST STEPHANIE FAUSTIN M.D. Performed By: #### U HCG, CUU, ADDONUAPLUS, URDS #### [address] Cocaine Screen,Urine Negative Normal Negative [facility] Comment on above: Performed By: #### U HCG, CUU, ADDONUAPLUS, URDS #### [address] Opiate Screen,Urine Negative Normal Negative [facility] Comment on above: Performed By: #### U HCG, CUU, ADDONUAPLUS, URDS #### [place] [address] [place] Phencyclidine Screen,Urine Negative Normal Negative [facility] Comment on above: Performed By: #### U HCG, CUU, ADDONUAPLUS, URDS #### [place] [address] [place] Eosinophils Auto (Bld) [#/Vo l]Ordered By: Cole Cast on 06-11-2024 Eosinophils (Bld) [#/Vol] Automated eosinophil count 0.0-0.45 [facility] Eosinophils/100 WBC Auto (Bl d)Ordered By: Cole Cast on 06-11-2024 Eosinophils/100 WBC (Bld) Automated eosinophil % . [facility] Epithelial cells.squamous [# /area] in Urine sediment by Automated countOrdered By: Cole Cast on 06-11-2024 Epithelial cells.squamous Auto (Urine sed) [#/Area] Epithelial cells.squamous [#/area] in Urine sediment by Automated count High 0-2 [facility] Erythrocyte distribution wid th Auto (RBC) [Ratio]Ordered By: Cole Cast on 06-11-2024 Erythrocyte distribution width (RBC) [Ratio] Erythrocyte distribution width [Ratio] by Automated count High 11.9-15.3 [facility] Erythrocytes [#/area] in Uri ne sediment by Automated countOrdered By: Cole Cast on 06-11-2024 RBC Auto (Urine sed) [#/Area] Erythrocytes [#/area] in Urine sediment by Automated count 0-4 [facility] Ethanol [Mass/volume] in Ser um or PlasmaOrdered By: Cole Cast on 06-11-2024 Ethanol [Mass/Vol] Ethanol [Mass/volume ] in Serum or Plasma [facility] Comment on above: Test not performed Ethyl Alcohol Profileon Ethanol [Mass/Vol] mg/dL Normal [facility] Comment on above: Performed By: #### U HCG, CUU, ADDONUAPLUS, URDS #### [facility] [address] [place] [address] Percent Ethanol Not performed Normal [facility] Comment on above: Result Comment: PERF ORMED BY: [place] [address] PATHOLOGIST [employer] TECHNOLOG[employer] SPECIALIST STEPHANIE FAUSTIN M.D. Performed By: #### U HCG, CUU, ADDONUAPLUS, URDS #### [facility] [address] [place] [address] Globulin Calc (S) [Mass/Vol] Ordered By: Cole Cast on 06-11-2024 Globulin (S) [Mass/Vol] Serum globulin measurement by calculation (mass/volume) [facility] Glucose [Mass/volume] in Ser um or PlasmaOrdered By: Cole Cast on 06-11-2024 Glucose [Mass/Vol] Glucose [Mass/volume ] in Serum or Plasma High 70-100 [facility] Comment on above: ADA recommended refe [...] [Mass/volume] in Urine by Test strip Normal [facility] HCG ( test) IA.rapi d Ql (U)Ordered By: Cole Cast on 06-11-2024 HCG ( test) Ql (U) Urine human chorionic gonadotropin (hCG) detection by immunoassay [facility] HCG,Urineon 06-11-2024 Beta HCG ( test) Ql (U) Negative Normal [facility] Comment on above: Order Comment: Name Collection Type:: Clean-Voided Midstream Result Comment: PERF ORMED BY: [place] [address] PATHOLOGIST [employer] TECHN[employer] SPECIALIST STEPHANIE FAUSTIN M.D. Performed By: #### U HCG, CUU, ADDONUAPLUS, URDS #### [address] Hematocrit Auto (Bld) [Volum e fraction]Ordered By: Cole Cast on 06-11-2024 Hematocrit (Bld) [Volume fraction] Hematocrit [Volume Fraction] of Blood by Automated count 34.0-46.4 [facility] Hemoglobin Test strip Ql (U) Ordered By: Cole Cast on 06-11-2024 Hemoglobin Ql (U) Hemoglobin [Presence ] in Urine by Test strip Negative [facility] Hemoglobin [Mass/volume] in BloodOrdered By: Cole Cast on 06-11-2024 Hemoglobin (Bld) [Mass/Vol] Hemoglobin [Mass/volume] in Blood 11.8-15.4 [facility] Hyaline casts [#/area] in Ur ine sediment by Automated countOrdered By: Cole Cast on 06-11-2024 Hyaline casts Auto (Urine sed) [#/Area] Hyaline casts [#/area] in Urine sediment by Automated count High 0-8 [facility] Ketones Test strip Ql (U)Ord ered By: Cole Cast on 06-11-2024 Ketones Ql (U) Ketones [Presence] i n Urine by Test strip High Negative [facility] Leukocyte esterase [Presence ] in Urine by Test stripOrdered By: Cole Cast on 06-11-2024 Leukocyte esterase Test strip Ql (U) Leukocyte esterase [Presence] in Urine by Test strip High Negative [facility] Leukocytes [#/area] in Urine sediment by Automated countOrdered By: Cole Cast on 06-11-2024 WBC Auto (Urine sed) [#/Area] Leukocytes [#/area] in Urine sediment by Automated count High 0-4 [facility] Leukocytes [#/volume] correc hemalatha for nucleated erythrocytes in Blood by Automated counOrdered By: Cole Cast on 06-11-2024 WBC corrected for nucl RBC Auto (Bld) [#/Vol] Leukocytes [#/volume] corrected for nucleated erythrocytes in Blood by Automated coun 3.8-11.6 [facility] Lipid Panelon 06-11-2024 Cholesterol [Mass/Vol] 132 mg/dL Low 140-200 [facility] Comment on above: Order Comment: Name Collection Type:: Clean-Voided Midstream Result Comment: Chol less than 200 mg/dl low risk Chol 201-239 mg/dl borderline risk Chol 240 mg/dl and greater high risk Performed By: #### U HCG, CUU, ADDONUAPLUS, URDS #### [facility] [address] Cholesterol in HDL [Mass/Vol] 46 mg/dL Normal 23-92 [facility] Comment on above: Order Comment: Name Collection Type:: Clean-Voided Midstream Result Comment: HDL CHOL ATP-III CLASSIFICATION Cardiovascular Risk HDL > or equal to 60 mg/dL LOW HDL < 40 mg/dL HIGH Performed By: #### U HCG, CUU, ADDONUAPLUS, URDS #### [facility] [address] [place] [id number] [facility] Cholesterol.total/Polina sterol in HDL [Mass ratio] 2.9 {ratio} Normal <5.0 [facility] Comment on above: Order Comment: Name Collection Type:: Clean-Voided Midstream Performed By: #### U HCG, CUU, ADDONUAPLUS, URDS #### [facility] [address] [place] [address] LDL Cholesterol,Calculated 61 mg/dL Normal 0-100 [facility] Comment on above: Order Comment: Name Collection Type:: Clean-Voided Midstream Result Comment: LDL ATP III CLASSIFICATION LDL less than 100 mg/dL Optimal LDL 100-129 mg/dL Near or above optimal LDL 130-159 mg/dL Borderline high LDL 160-189 mg/dL High LDL greater than 189 mg/dL Very high Performed By: #### U HCG, CUU, ADDONUAPLUS, URDS #### [facility] [address] [place] [address] Triglyceride w/Reflex 124 mg/dL Normal 0-149 [facility] Comment on above: Order Comment: Name Collection Type:: Clean-Voided Midstream Result Comment: TRIG ATP III CLASSIFICATION TRIG less than 150 mg/dL Normal TRIG 150-199 mg/dL Borderline high TRIG 200-500 mg/dL High TRIG greater than 500 mg/dL Very high Standard traceable to the Center for Disease Conrtrol and Prevention (CDC) test method. Performed By: #### U HCG, CUU, ADDONUAPLUS, URDS #### [facility] [address] [place] [address] VLDL CHOLESTEROL 24 mg/dL Normal [facility] Comment on above: Order Comment: Name Collection Type:: Clean-Voided Midstream Performed By: #### U HCG, CUU, ADDONUAPLUS, URDS #### [address] Lymphocytes Auto (Bld) [#/Vo l]Ordered By: Cole Cast on 06-11-2024 Lymphocytes (Bld) [#/Vol] Lymphocytes [#/volume] in Blood by Automated count 1.00-4.8 [facility] Lymphocytes/100 WBC Auto (Bl d)Ordered By: Cole Cast on 06-11-2024 Lymphocytes/100 WBC (Bld) Lymphocytes/100 leukocytes in Blood by Automated count . [facility] MCH Auto (RBC) [Entitic mass ]Ordered By: Cole Cast on 06-11-2024 MCH (RBC) [Entitic mass] MCH [Entitic mass] by Automated count 24.7-34.3 [facility] MCHC Auto (RBC) [Mass/Vol]Or dered By: Cole Cast on 06-11-2024 MCHC (RBC) [Mass/Vol] MCHC [Mass/volume] by Automated count 32.0-35.0 [facility] MCV Auto (RBC) [Entitic vol] Ordered By: Cole Cast on 06-11-2024 MCV (RBC) [Entitic vol] MCV [Entitic vol ume] by Automated count 80-100 [facility] Monocyte distribution width [Entitic volume] in Blood by AutomatedOrdered By: Cole Cast on 06-11-2024 Monocyte distribution width Auto (Bld) [Entitic vol] Monocyte distribution width [Entitic volume] in Blood by Automated 0.00-20.00 [facility] Monocytes Auto (Bld) [#/Vol] Ordered By: Cole Cast on 06-11-2024 Monocytes (Bld) [#/Vol] Automated blood monocyte count 0.0-0.8 [facility] Monocytes/100 WBC Auto (Bld) Ordered By: Cole Cast on 06-11-2024 Monocytes/100 WBC (Bld) Automated monocyte % . [facility] Mucus [Presence] in Urine by AutomatedOrdered By: Cole Cast on 06-11-2024 Mucus Auto Ql (U) Mucus [Presence] in Urine by Automated Abnormal [facility] Neutrophils Auto (Bld) [#/Vo l]Ordered By: Cole Cast on 06-11-2024 Neutrophils (Bld) [#/Vol] Neutrophils [#/volume] in Blood by Automated count 1.8-7.7 [facility] Neutrophils/100 WBC Auto (Bl d)Ordered By: Cole Cast on 06-11-2024 Neutrophils/100 WBC (Bld) Automated neutrophil % . [facility] Nitrite Test strip Ql (U)Ord ered By: Cole Cast on 06-11-2024 Nitrite Ql (U) Nitrite [Presence] i n Urine by Test strip Negative [facility] No Panel InformationOrdered By: Cole Cast on 06-11-2024 Estimated GFR (CKD-EPI) > 60.0 mL/Min [facility] Creatinine Clearance (Chem 76.30 [facility] Nucleated erythrocytes [Pres ence] in Blood by Automated countOrdered By: Cole Cast on 06-11-2024 Nucleated RBC Auto Ql (Bld) Nucleated erythrocytes [Presence] in Blood by Automated count 0-0.5 [facility] Office Visiton 06-11-2024 Follow-up visit [id number] Shahla Arias 1980 F Date Provider Department Center 06/11/2024 [facility] Family History Problem Relation Age of Onset Hypertension Mother Cancer Mother Stroke Mother Family Status - Relation Status Age at Mother Father Alive Sister Alive Brother Alive Level of Service:10044 [place] OFFICE/OUTPATIENT NEW MODERATE MDM 45 MINUTES Normal [facility] Opiates [Presence] in Urine by Screen methodOrdered By: Cole Cast on 06-11-2024 Opiates Screen Ql (U) Opiates [Presence] in Urine by Screen method Negative [facility] Phencyclidine Screen Ql (U)O rdered By: Cole Cast on 06-11-2024 Phencyclidine Ql (U) Phencyclidine [Presence] in Urine by Screen method Negative [facility] Platelet mean volume Auto (B ld) [Entitic vol]Ordered By: Cole Cast on 06-11-2024 Platelet mean volume (Bld) [Entitic vol] Platelet mean volume [Entitic volume] in Blood by Automated count 6.3-10.7 [facility] Platelets Auto (Bld) [#/Vol] Ordered By: Cole Cast on 06-11-2024 Platelets (Bld) [#/Vol] Platelets [#/vol ume] in Blood by Automated count 150-450 [facility] Potassium [Moles/volume] in Serum or PlasmaOrdered By: Cole Cast on 06-11-2024 Potassium [Moles/Vol] Potassium [Moles/volume] in Serum or Plasma 3.5-5.1 [facility] Protein Test strip (U) [Mass /Vol]Ordered By: Cole Cast on 06-11-2024 Protein (U) [Mass/Vol] Protein [Mass/vol ume] in Urine by Test strip High Negative [facility] Protein [Mass/volume] in Ser um or PlasmaOrdered By: Cole Cast on 06-11-2024 Protein [Mass/Vol] Protein [Mass/volume ] in Serum or Plasma 6.4-8.9 [facility] RBC Auto (Bld) [#/Vol]Ordere d By: Cole Cast on 06-11-2024 RBC (Bld) [#/Vol] Erythrocytes [#/volume] in Blood by Automated count 3.60-5.00 [facility] Serum or plasma albumin/glob ulin mass ratioOrdered By: Cole Cast on 06-11-2024 Albumin/Globulin [Mass ratio] Serum or plasma albumin/globulin mass ratio [facility] Serum or plasma anion gap de terminationOrdered By: Cole Cast on 06-11-2024 Anion gap [Moles/Vol] Serum or plasma an ion gap determination 6.0-15.0 [facility] Serum or plasma total choles terol/high density lipoprotein (HDL) cholesterol mass ratOrdered By: Vivek Antoine on 06-11-2024 Cholesterol.total/Polina sterol in HDL [Mass ratio] Serum or plasma total cholesterol/high density lipoprotein (HDL) cholesterol mass rat <5.0 [facility] Sodium [Moles/volume] in Ser um or PlasmaOrdered By: Cole Cast on 06-11-2024 Sodium [Moles/Vol] Sodium [Moles/volume ] in Serum or Plasma 136-145 [facility] Specific gravity Test strip (U) [Rel density]Ordered By: Cole Cast on 06-11-2024 Specific gravity (U) [Rel density] Specific gravity of Urine by Test strip 1.001-1.030 [facility] Thyroid Stim Hormone w/Rflxo n 06-11-2024 Thyroid Stim Hormone w/Rflx 3.58 u[iU]/mL Normal 0.45-5.33 [facility] Comment on above: Order Comment: Name Collection Type:: Clean-Voided Midstream Performed By: #### U HCG, CUU, ADDONUAPLUS, URDS #### [address] Thyrotropin [Units/volume] i n Serum or PlasmaOrdered By: Vivek Antoine on 06-11-2024 TSH Qn Thyrotropin [Units/volume] in Serum or Plasma 0.45-5.33 [facility] Triglyceride [Mass/volume] i n Serum or PlasmaOrdered By: Vivek Antoine on 06-11-2024 Triglyceride [Mass/Vol] Triglyceride [Mass/volume] in Serum or Plasma 0-149 [facility] Comment on above: TRIG ATP III CLASSIF ICATIONTRIG less than 150 mg/dL NormalTRIG 150-199 mg/dL Borderline highTRIG 200-500 mg/dL High TRIG greater than 500 mg/dL Very highStandard traceable to the Center for Disease Conrtrol and Prevention (CDC) test method. Urea nitrogen [Mass/volume] in Serum or PlasmaOrdered By: Cole Cast on 06-11-2024 Urea nitrogen [Mass/Vol] Urea nitrogen [Mass/volume] in Serum or Plasma 7-25 [facility] Urine Cultureon 06-11-2024 Bacteria identified Cx Nom (U) <9,000 colonies/ml mixed bacterial skin contaminants 2 Days PERFORMED BY: [place] [address] PATHOLOGIST [employer] TECH[employer] SPECIALIST STEPHANIE FAUSTIN M.D. Normal [facility] Comment on above: Performed By: #### U HCG, CUU, ADDONUAPLUS, URDS #### [address] Urine cultureOrdered By: Claus Cast on 06-11-2024 Bacteria identified Cx Nom (U) Urine culture [facility] Urobilinogen Test strip (U) [Mass/Vol]Ordered By: Cole Cast on 06-11-2024 Urobilinogen (U) [Mass/Vol] Urobilinogen [Mass/volume] in Urine by Test strip High Normal [facility] Vitamin D 25 Hydroxy Totalon 06-11-2024 Vitamin D 25 Hydroxy Total 47.1 ng/mL Normal 30-100 [facility] Comment on above: Order Comment: Name Collection Type:: Clean-Voided Midstream Result Comment: JAYSON MIN D STATUS 25(OH)VITAMIN D RANGE (ng/mL) Deficient <20 Insufficient 20 to <30 Sufficient 30 to 100 Reference: Marsha Hillman, zE MULTANI, et al. Evaluation,treatment, and prevention of vitamin D deficiency; an Endocrine Society clinical practice guideline. JCEM. 2010; 96(7):191-. PERFORMED BY: [facility] [address] [place] [address] PATHOLOGIST [employer] TECHNOLOG[employer] SPECIALIST STEPHANIE FAUSTIN M.D. Performed By: #### U HCG, CUU, ADDONUAPLUS, URDS #### [facility] [address] Vitamin D+Metabolites [Mass/ volume] in Serum or PlasmaOrdered By: Vivek Antoine on 06-11-2024 Vitamin D+Metabolites [Mass/Vol] Vitamin D+Metabolites [Mass/volume] in Serum or Plasma 30-100 [facility] Comment on above: VITAMIN D STATUS 25( [place])VITAMIN D RANGE (ng/mL) Deficient <20 Insufficient 20 to <30Sufficient 30 to 100Reference: Marsha Hillman, Ez MULTANI, et al. Evaluation,treatment, and prevention of vitamin D deficiency; an Endocrine Society clinical practice guideline. JCEM. 2010; 96(7):1911-. WBC Auto (Bld) [#/Vol]Ordere d By: Cole Cast on 06-11-2024 WBC (Bld) [#/Vol] Leukocytes [#/volume ] in Blood by Automated count 3.8-11.6 [facility] pH Test strip (U)Ordered By: Cole Cast on 06-11-2024 pH (U) pH of Urine by Test strip 5.0-9.0 [facility] 30on 05-25-2024 30 Problem: Pain - [...] by Aminah Campbell RN Outcome: Progressing Normal [facility] 30 Problem: Pain - Adul t [...] goals for the shift include VSS Normal [facility] 30 The patient is Moderately Stable [...] and maintained or improved Outcome: Progressing Normal [facility] BASIC METABOLIC PANELon 03-2 Anion gap [Moles/Vol] 10 mmol/L Normal 7-20 [facility] Comment on above: Performed By: #### L [id number] ####[facility] [place] [address] Calcium [Mass/Vol] 8.7 mg/dL Normal 8.6-10.3 [facility] Comment on above: Performed By: #### L [id number] ####[facility] ([facility])[address] [place] [address] Chloride [Moles/Vol] 108 mmol/L High 98-107 [facility] Comment on above: Performed By: #### L [id number] ####[facility] ([facility])[address] [place] [address] CO2 [Moles/Vol] 25 mmol/L Normal 21-31 [facility] Comment on above: Performed By: #### L [id number] ####[facility] ([facility])[address] [place] [address] Creatinine [Mass/Vol] 1.04 mg/dL Normal 0.60-1.20 [facility] Comment on above: Performed By: #### L [id number] ####[facility] ([facility])[address] [place] [address] GLOMERULAR FILTRATION RATE ML/MIN/1.73 SQ M.PREDICTED 67.1 mL/min/1.73m*2 Normal >60.0 [facility] Comment on above: Result Comment: [facility]???s estimated glomerular filtration rate (eGFR) will [...] of individuals. Performed By: #### L AB15 ####[facility] ([facility])[address] [place] [address] Glucose [Mass/Vol] 100 mg/dL Normal 70-100 [facility] Comment on above: Performed By: #### L [id number] ####[facility] ([facility])[address] [place] [address] Potassium [Moles/Vol] 4.9 mmol/L Normal 3.5-5.1 [facility] Comment on above: Performed By: #### L [id number] ####[facility] ([facility])[address] [place] [address] Sodium [Moles/Vol] 138 mmol/L Normal 136-145 [facility] Comment on above: Performed By: #### L [id number] ####[facility] ([facility])[address] [place] [address] Urea nitrogen [Mass/Vol] 11 mg/dL Normal 7-25 [facility] Comment on above: Performed By: #### L [id number] ####[facility] ([facility])[address] [place] [address] UREA NITROGEN/CREATININE (MASS RATIO) IN SER/PLAS 10.6 Normal [facility] Comment on above: Performed By: #### L [id number] ####[facility] ([facility])[address] [place] [address] CBCon 05-25-2024 Erythrocyte distribution width (RBC) [Ratio] 14.6 % Normal 11.5-15.0 [facility] Comment on above: Performed By: #### L [id number] #### [facility] ([facility]) [address] [place] [address] ERYTHROCYTE MEAN CORPUSCULAR HEMOGLOBIN CONCENTRATION (G/DL) BY AUTOMATED 31.6 g/dL Low 32.0-35.0 [facility] Comment on above: Performed By: #### L [id number] #### [facility] ([facility]) [address] [place] [address] Hematocrit (Bld) [Volume fraction] 30.7 % Low 36.0-45.0 [facility] Comment on above: Performed By: #### L [id number] #### [facility] [address] [place] [address] Hemoglobin (Bld) [Mass/Vol] 9.7 g/dL Low 12.0-15.0 [facility] Comment on above: Performed By: #### L [id number] #### [facility] ([facility]) [address] [place] [address] MCH (RBC) [Entitic mass] 28.9 pg Normal 27.0-33.0 [facility] Comment on above: Performed By: #### L [id number] #### [facility] ([facility]) [address] [place] [address] MCV (RBC) [Entitic vol] 91.4 fL Normal 82.0-98.0 [facility] Comment on above: Performed By: #### L [id number] #### [facility] ([facility]) [address] [place] [address] PLATELETS (10*3/UL) IN BLOOD AUTOMATED COUNT 189 10*3/uL Normal 150-400 [facility] Comment on above: Performed By: #### L [id number] #### [facility] ([facility]) [address] [place] [address] RBC (Bld) [#/Vol] 3.36 10*6/uL Low 3.80-5.00 [facility] Comment on above: Performed By: #### L [id number] #### [facility] ([facility]) [address] [place] [address] WBC (Bld) [#/Vol] 5.23 10*3/uL Normal 4.00-10.60 [facility] Comment on above: Performed By: #### L [id number] #### [facility] ([facility]) [address] [place] [address] 30on 05-24-2024 30 Daily Case Managemen t Update Multidisciplinary rounds have been completed. Barriers to Discharge: Patient was transferred from [facility] with NSTEMI, abnormal EKG and stress [...] appropriate for patient?: Yes New Consults: Normal [facility] 30 The patient is Moderately Stable - Low risk of patient condition declining or worsening The patient's goals for the shift include Comfort The clinical goals for the shift include VSS Normal [facility] 30 The patient is Moderately Stable - Low risk of patient condition declining or worsening The patient's goals for the shift include Comfort The clinical goals for the shift include VSS Normal [facility] ANTI-XA (HEPARIN LEVEL)on HEPARIN UNFRACTIONATED (U/ML) IN PPP BY CHROMOGENIC METHOD 0.49 IU/mL Normal 0.3-0.7 [facility] Comment on above: Order Comment: Check anti-Xa level every 6 hours while on heparin infusion, or per protocol. Result Comment: Hurst roxaban and Apixaban will interfere with the anti Xa assay used to monitor UFH and LMWH. Performed By: #### L [id number] #### [facility] ([facility]) [address] [place] [address] APTTon 05-24-2024 ACTIVATED PARTIAL THROMBOPLASTIN TIME IN PPP BY COAGULATION ASSAY <20.0 Low 25.0-35.0 [facility] Comment on above: Order Comment: Basel ine aPTT before initiating heparin infusion. Result Comment: Clin ical significance of the APTT is questionable in the presence of heparin. Performed By: #### L [id number] #### [facility] ([facility]) [address] [place] [address] CBC WITH AUTO DIFFERENTIALon 05-24-2024 Erythrocyte distribution width (RBC) [Ratio] 14.7 % Normal 11.5-15.0 [facility] Comment on above: Performed By: #### L [id number] #### [facility] ([facility]) [address] [place] [address] ERYTHROCYTE MEAN CORPUSCULAR HEMOGLOBIN CONCENTRATION (G/DL) BY AUTOMATED 31.8 g/dL Low 32.0-35.0 [facility] Comment on above: Performed By: #### L [id number] #### [facility] ([facility]) [address] [place] [address] Hematocrit (Bld) [Volume fraction] 30.5 % Low 36.0-45.0 [facility] Comment on above: Performed By: #### L [id number] #### [facility] ([facility]) [address] [place] [address] Hemoglobin (Bld) [Mass/Vol] 9.7 g/dL Low 12.0-15.0 [facility] Comment on above: Performed By: #### L [id number] #### [facility] ([facility]) [address] [place] [address] IMMATURE PLATELET FRACTION % 1.3 % Normal 0.8-6.3 [facility] Comment on above: Performed By: #### L [id number] #### [facility] ([facility]) [address] [place] [address] MCH (RBC) [Entitic mass] 29.5 pg Normal 27.0-33.0 [facility] Comment on above: Performed By: #### L [id number] #### [facility] ([facility]) [address] [place] [address] MCV (RBC) [Entitic vol] 92.7 fL Normal 82.0-98.0 [facility] Comment on above: Performed By: #### L [id number] #### [facility] ([facility]) [address] [place] [address] NRBC (PER 100 WBCS) BY AUTOMATED COUNT 0.0 % Normal 0 [facility] Comment on above: Performed By: #### L [id number] #### [facility] ([facility]) [address] [place] [address] PLATELETS (10*3/UL) IN BLOOD AUTOMATED COUNT 153 10*3/uL Normal 150-400 [facility] Comment on above: Result Comment: Slid e checked, no clumps or clots seen Performed By: #### L [id number] #### [facility] ([facility]) [address] [place] [address] RBC (Bld) [#/Vol] 3.29 10*6/uL Low 3.80-5.00 [facility] Comment on above: Performed By: #### L [id number] #### [facility] ([facility]) [address] [place] [address] WBC (Bld) [#/Vol] 5.00 10*3/uL Normal 4.00-10.60 [facility] Comment on above: Performed By: #### L [id number] #### [facility] ([facility]) [address] [place] [address] COMPREHENSIVE METABOLIC PANE [facility] 05-24-2024 Albumin [Mass/Vol] 3.4 g/dL Low 3.5-5.7 [facility] Comment on above: Performed By: #### L [id number] #### [facility] ([facility]) [address] [place] [address] ALP [Catalytic activity/Vol] 65 U/L Normal 34-104 [facility] Comment on above: Performed By: #### L [id number] #### [facility] ([facility]) [address] [place] [address] ALT [Catalytic activity/Vol] 20 U/L Normal 7-52 [facility] Comment on above: Performed By: #### L [id number] #### [facility] ([facility]) [address] [place] [address] Anion gap [Moles/Vol] 9 mmol/L Normal 7-20 [facility] Comment on above: Performed By: #### L [id number] #### [facility] ([facility]) [address] [place] [address] AST [Catalytic activity/Vol] 21 U/L Normal 13-39 [facility] Comment on above: Performed By: #### L [id number] #### [facility] ([facility]) [address] [place] [address] Bilirubin [Mass/Vol] 0.5 mg/dL Normal 0.3-1.0 [facility] Comment on above: Performed By: #### L [id number] #### [facility] ([facility]) [address] [place] [address] Calcium [Mass/Vol] 8.6 mg/dL Normal 8.6-10.3 [facility] Comment on above: Performed By: #### L [id number] #### [facility] ([facility]) [address] [place] [address] Chloride [Moles/Vol] 107 mmol/L Normal 98-107 [facility] Comment on above: Performed By: #### L [id number] #### [facility] ([facility]) [address] [place] [address] CO2 [Moles/Vol] 28 mmol/L Normal 21-31 [facility] Comment on above: Performed By: #### L [id number] #### [facility] ([facility]) [address] [place] [address] Creatinine [Mass/Vol] 1.06 mg/dL Normal 0.60-1.20 [facility] Comment on above: Performed By: #### L [id number] #### [facility] ([facility]) [address] [place] [address] GLOMERULAR FILTRATION RATE ML/MIN/1.73 SQ M.PREDICTED 65.6 mL/min/1.73m*2 Normal >60.0 [facility] Comment on above: Result Comment: The [facility]???s estimated glomerular filtration rate (eGFR) will [...] individuals. Performed By: #### L [id number] #### [facility] ([facility]) [address] [place] [address] Glucose [Mass/Vol] 99 mg/dL Normal 70-100 [facility] Comment on above: Performed By: #### L [id number] #### [facility] ([facility]) [address] [place] [address] Potassium [Moles/Vol] 4.6 mmol/L Normal 3.5-5.1 [facility] Comment on above: Performed By: #### L [id number] #### [facility] ([facility]) [address] [place] [address] Protein [Mass/Vol] 5.9 g/dL Low 6.0-8.3 [facility] Comment on above: Performed By: #### L [id number] #### [facility] ([facility]) [address] [place] [address] Sodium [Moles/Vol] 139 mmol/L Normal 136-145 [facility] Comment on above: Performed By: #### L [id number] #### [facility] ([facility]) [address] [place] [address] Urea nitrogen [Mass/Vol] 11 mg/dL Normal 7-25 [facility] Comment on above: Performed By: #### L [id number] #### [facility] ([facility]) [address] [place] [address] UREA NITROGEN/CREATININE (MASS RATIO) IN SER/PLAS 10.4 Normal [facility] Comment on above: Performed By: #### L [id number] #### [facility] ([facility]) [address] [place] [address] CONSULTon 05-24-2024 CONSULT -- Attestation signed by [...] troponins Vira Heath MD, ScM, MSc Cardiac Assistant Track Coach Email: [email or web address] Cardiology Consult Note Reason for Consult: NSTEMI HPI: Shahla Arias is a 44 y.o. female with past history remarkable for primary hypertension, peripheral artery disease, preexcitation on EKG who presented to [facility] as a transfer from [facility] where she initially presented complaining of abdominal pain, nausea and vomiting that she relates it started after she ate at a restaurant outside. Initial workup in [facility] showed elevated high-sensitivity troponin of 140 which trended downward during hospital admission to 84. Reported that she was not able to complete a stress test in [facility] and cardiology team were contacted for [...] Daily RT cholecalciferol (Vitamin D-3) 50 MCG (1999) tablet oral, Daily clopidogrel (PLAVIX) 75 mg, [...] morning. 05/23/2024 cholecalciferol (Vitamin D-3) 50 MCG (1999) tablet [...] 05/23/2024 olmesar (more content not included)... Normal [facility] HIGH SENSITIVITY TROPONIN Io n 05-24-2024 HS TROPONIN I (NG/L) 52 ng/L Critically high <15 [facility] Comment on above: Performed By: #### L [id number] #### [facility] ([facility]) [address] [place] [address] HPon 05-24-2024 HP H&P reviewed. The patient was examined and there are no changes to the H&P. Mrs. Arias, a 44 year old female patient is scheduled for coronary angiogram for NSTEMI with abnormal stress test (anterior reversible defect and TID). Normal [facility] LIPASEon 05-24-2024 LIPASE (U/L) IN SER/PLAS 39 U/L Normal 11-82 [facility] Comment on above: Performed By: #### L [id number] #### [facility] ([facility]) [address] [place] [address] MAGNESIUMon 05-24-2024 Magnesium [Mass/Vol] 1.7 mg/dL Low 1.9-2.7 [facility] Comment on above: Performed By: #### L [id number] #### [facility] ([facility]) [address] [place] [address] MANUAL DIFFERENTIALon 2024 BASOPHILS (10*3/UL) IN BLOOD BY CALCULATION 0.03 10*3/uL Normal 0.00-0.20 [facility] Comment on above: Performed By: #### L [id number] ####[facility] ([facility])[address] [place] [address] BASOPHILS/100 LEUKOCYTES IN BLOOD BY AUTOMATED COUNT 0.6 % Normal 0.0-1.0 [facility] Comment on above: Performed By: #### L [id number] ####[facility] ([facility])[address] [place] [address] EOSINOPHILS (10*3/UL) IN BLOOD BY CALCULATION 0.10 10*3/uL Normal 0.00-0.50 [facility] Comment on above: Performed By: #### L [id number] ####[facility] ([facility])[address] [place] [address] EOSINOPHILS/100 LEUKOCYTES IN BLOOD BY AUTOMATED COUNT 2.0 % Normal 0.0-6.0 [facility] Comment on above: Performed By: #### L [id number] ####[facility] ([facility])[address] [place] [address] IMMATURE GRANULOCYTES (10*3/UL) IN BLOOD BY CALCULATION 0.02 10*3/uL Normal 0.00-0.20 [facility] Comment on above: Performed By: #### L [id number] ####[facility] ([facility])[address] [place] [address] IMMATURE GRANULOCYTES/100 LEUKOCYTES IN BLOOD BY AUTOMATED COUNT 0.4 % Normal 0.0-1.0 [facility] Comment on above: Performed By: #### L [id number] ####[facility] ([facility])[address] [place] [address] LYMPHOCYTES (10*3/UL) IN BLOOD BY CALCULATION 1.07 10*3/uL Low 1.20-4.00 [facility] Comment on above: Performed By: #### L [id number] ####[facility] ([facility])[address] [place] [address] LYMPHOCYTES/100 LEUKOCYTES IN BLOOD BY AUTOMATED COUNT 21.4 % Normal 20.0-45.0 [facility] Comment on above: Performed By: #### L [id number] ####[facility] ([facility])[address] [place] [address] MONOCYTES (10*3/UL) IN BLOOD BY CALCUATION 0.44 10*3/uL Normal 0.10-1.00 [facility] Comment on above: Performed By: #### L [id number] ####[facility] ([facility])[address] [place] [address] MONOCYTES/100 LEUKOCYTES IN BLOOD BY AUTOMATED COUNT 8.8 % Normal 5.0-12.0 [facility] Comment on above: Performed By: #### L [id number] ####[facility] ([facility])[address] [place] [address] NEUTROPHILS (10*3/UL) IN BLOOD BY CALCULATION 3.3 10*3/uL Normal 1.6-7.6 [facility] Comment on above: Performed By: #### L [id number] ####[facility] ([facility])[address] [place] [address] NEUTROPHILS/100 LEUKOCYTES IN BLOOD BY AUTOMATED COUNT 66.8 % Normal 40.0-72.0 [facility] Comment on above: Performed By: #### L [id number] ####[facility] ([facility])[address] [place] [address] SERUM QUALITATIVEo n 05-24-2024 HCG SERUM-QNI/QML-[id number] Negative Normal [facility] Comment on above: Performed By: #### L [id number] #### [facility] ([facility]) [address] [place] [address] URINALYSISon 05-24-2024 BILIRUBIN, TOTAL PRESENCE IN URINE Negative Normal Negative [facility] Comment on above: Performed By: #### L [id number] ####[facility] ([facility])[address] [place] [address] Clarity (U) Clear Normal Clear [facility] Comment on above: Performed By: #### L [id number] ####[facility] ([facility])[address] [place] [address] Color (U) Light-Yellow Normal Colorless, Yellow, Light-Yello w [facility] Comment on above: Performed By: #### L [id number] ####[facility] ([facility])[address] [place] [address] GLUCOSE (MG/DL) IN URINE Normal Normal Normal [facility] Comment on above: Performed By: #### L [id number] ####[facility] ([facility])[address] [place] [address] HEMOGLOBIN PRESENCE IN URINE Negative Normal Negative [facility] Comment on above: Performed By: #### L [id number] ####[facility] ([facility])[address] [place] [address] Ketones Ql (U) Negative Normal Negative [facility] Comment on above: Performed By: #### L [id number] ####[facility] ([facility])[address] [place] [address] LEUKOCYTE ESTERASE PRESENCE IN URINE BY TEST STRIP Moderate Abnormal Negative [facility] Comment on above: Performed By: #### L [id number] ####[facility] ([facility])[address] [place] [address] NITRITE PRESENCE IN URINE Negative Normal Negative [facility] Comment on above: Performed By: #### L [id number] ####[facility] ([facility])[address] [place] [address] pH (U) 7.0 [pH] Normal 5.0-8.0 [facility] Comment on above: Performed By: #### L [id number] ####[facility] ([facility])[address] [place] [address] Protein (U) [Mass/Vol] Negative Normal [facility] Comment on above: Performed By: #### L [id number] ####[facility] ([facility])[address] [place] [address] Specific gravity (U) [Rel density] 1.013 Normal 1.010-1.030 [facility] Comment on above: Performed By: #### L [id number] ####[facility] ([facility])[address] [place] [address] UROBILINOGEN (MG/DL) IN URINE Normal Normal Normal [facility] Comment on above: Performed By: #### L [id number] ####[facility] ([facility])[address] [place] [address] URINALYSIS MICROSCOPICon RBC (#/HPF) IN URINE SEDIMENT 0-2 Normal None Seen, 0-2 [facility] Comment on above: Performed By: #### L [id number] #### [facility] ([facility]) [address] [place] [address] SQUAMOUS EPITHELIAL CELLS (#/LPF) IN URINE SEDIMENT Many Abnormal None Seen, Occasional, Few [facility] Comment on above: Performed By: #### L [id number] #### [facility] ([facility]) [address] [place] [address] WBC (LEUKOCYTE) (#/HPF) IN URINE SEDIMENT 3-5 Abnormal None Seen, 0-2 [facility] Comment on above: Performed By: #### L [id number] #### [facility] ([facility]) [address] [place] [address] COVID Cepheidon 03-31-2024 SARS-CoV-2 (COVID-19) RNA PITO+probe Ql (Unsp spec) COVID Cepheid [facility] - Microbiology an d Antimicrobial susceptibilityon 03-31-2024 SARS-CoV-2 (COVID-19) RNA PITO+probe Ql (Unsp spec) Negative [facility] No Panel Informationon 03-31 POC Influenza A (PCR) Negative [facility] POC Influenza B (PCR) Negative [facility] Office Visiton 03-15-2024 Follow-up visit [id number] Shahla Arias 1980 F Date Provider Department Center 03/15/2024 3848-BENITO PRADO [facility] Family History Problem Relation Age of Onset Hypertension Mother Cancer Mother Stroke Mother Family Status - Relation Status Age at Mother Level of Service:73438 [place] OFFICE/OUTPATIENT ESTABLISHED LOW MDM 20 MIN Normal [facility] ECG 12 lead ECGon 11-09-2023 ECG 12 lead ECG [facility] Main [place] [address] [place], [place] [id number] Electrocardiograph Report Signed Patient: Shahla Arias MR#: [id number] : 1980 Acct:[id number] Age/Sex: 43 / F ADM Date: 11/08/23 Loc: Room: [address] [place] [address] Type: ADM IN Attending Dr: Geo Loomis [...] ventricular hypertrophy ( R in aVL , [place] product , [place] ) Posterior infarct , age undetermined Abnormal ECG When compared with ECG of 25-May-2022 07:06, ST no longer depressed in Inferior leads Confirmed by Julieth Kumar ([id number]) on 11/10/2023 5:37:37 PM Referred By: Electronically Signed By: Julieth Kumar Transcribed By: MUS Signed By Julieth Kumar DO 4 1737 Normal [facility] Alanine aminotransferase [En zymatic activity/volume] in Serum or PlasmaOrdered By: Art Pa on 11-08-2023 ALT [Catalytic activity/Vol] 18 U/L Normal 7-52 [facility] Comment on above: Performed By: #### C MP, ETOH, CBC #### [place] [id number] [facility] Albumin [Mass/volume] in Ser um or Plasma by Bromocresol green (BCG) dye binding methoOrdered By: Art Pa on 11-08-2023 Albumin BCG dye [Mass/Vol] 4.1 g/dL 3.5-5.7 [facility] Alkaline phosphatase [Enzyma tic activity/volume] in Serum or PlasmaOrdered By: Art Pa on 11-08-2023 ALP [Catalytic activity/Vol] 93 U/L Normal 34-104 [facility] Comment on above: Performed By: #### C MP, ETOH, CBC #### [facility] [address] [place] [address] Amphetamine Screen Ql (U)Ord ered By: Art Pa on 11-08-2023 Amphetamines Ql (U) Negative Negative [facility] Aspartate aminotransferase [ Enzymatic activity/volume] in Serum or PlasmaOrdered By: Art Pa on 11-08-2023 AST [Catalytic activity/Vol] 19 U/L Normal 13-39 [facility] Comment on above: Performed By: #### C MP, ETOH, CBC #### [address] Automated basophil %Ordered By: Art Pa on 11-08-2023 Basophils/100 WBC (Bld) 0.7 % Normal . [facility] Comment on above: Performed By: #### C MP, ETOH, CBC #### [address] Automated basophil countOrde red By: Art Pa on 11-08-2023 Basophils (Bld) [#/Vol] 0.1 10*3/uL Normal 0.0-0.2 [facility] Comment on above: Result Comment: PERF ORMED BY: [place] [address] PATHOLOGIST [employer]CH[employer] SPECIALIST DANNIE MOODY M.D. Performed By: #### C MP, ETOH, CBC #### [address] Automated blood monocyte cou ntOrdered By: Art Pa on 11-08-2023 Monocytes (Bld) [#/Vol] 0.9 10*3/uL High 0.0-0.8 [facility] Comment on above: Performed By: #### C MP, ETOH, CBC #### [address] Automated eosinophil %Ordere d By: Art Pa on 11-08-2023 Eosinophils/100 WBC (Bld) 0.1 % Normal . [facility] Comment on above: Performed By: #### C MP, ETOH, CBC #### [facility] [address] Automated eosinophil countOr dered By: Art Pa on 11-08-2023 Eosinophils (Bld) [#/Vol] 0.0 10*3/uL Normal 0.0-0.45 [facility] Comment on above: Performed By: #### C MP, ETOH, CBC #### [facility] [address] Automated monocyte %Ordered By: Art Pa on 11-08-2023 Monocytes/100 WBC (Bld) 7.5 % Normal . [facility] Comment on above: Performed By: #### C MP, ETOH, CBC #### [facility] [address] Automated neutrophil %Ordere d By: Art Pa on 11-08-2023 Neutrophils/100 WBC (Bld) 69.7 % Normal . [facility] Comment on above: Performed By: #### C MP, ETOH, CBC #### [facility] [address] [place] [address] [place] Bacteria [Presence] in Urine by AutomatedOrdered By: Art Pa on 11-08-2023 Bacteria Auto Ql (U) Rare [HPF] None Seen [facility] Barbiturates [Presence] in U rine by Screen methodOrdered By: Art Pa on 11-08-2023 Barbiturates Screen Ql (U) Negative Negative [facility] Benzodiazepines Screen Ql (U )Ordered By: Art Pa on 11-08-2023 Benzodiazepines Ql (U) Negative Negative [facility] Benzoylecgonine [Presence] i n Urine by Screen methodOrdered By: Art Pa on 11-08-2023 Benzoylecgonine Screen Ql (U) Negative Negative [facility] Bilirubin Test strip Ql (U)O rdered By: Art Pa on 11-08-2023 Bilirubin Ql (U) Negative Negative [facility] Bilirubin.total [Mass/volume ] in Serum or PlasmaOrdered By: Art Pa on 11-08-2023 Bilirubin [Mass/Vol] 0.5 mg/dL Normal 0.3-1.0 [facility] Comment on above: Performed By: #### C MP, ETOH, CBC #### [facility] [address] [place] [address] [place] Calcium [Mass/volume] in Ser um or PlasmaOrdered By: Art Pa on 11-08-2023 Calcium [Mass/Vol] 9.6 mg/dL Normal 8.6-10.3 [facility] Comment on above: Performed By: #### C MP, ETOH, CBC #### [facility] [address] Cannabinoids [Presence] in U rine by Screen methodOrdered By: Art Pa on 11-08-2023 Cannabinoids Screen Ql (U) Negative Negative [facility] Comment on above: These are unconfirme d results and should not be used for legal purposes. Drug Cut-Off Concentration: AMPH 1000 ng/mL SANDEEP 200 ng/mL JERSON 200 ng/mL COCM 300 ng/mL OP 300 ng/mL PCP 25 ng/mL THC 20 ng/mL Carbon dioxide, total [Moles /volume] in Serum or PlasmaOrdered By: Art Pa on 11-08-2023 CO2 [Moles/Vol] 29.1 mmol/L Normal 21.0-31.0 [facility] Comment on above: Performed By: #### C MP, ETOH, CBC #### [facility] [address] [place] [id number] [place] Chloride [Moles/volume] in S monse or PlasmaOrdered By: Art Pa on 11-08-2023 Chloride [Moles/Vol] 101 mmol/L Normal 98-107 [facility] Comment on above: Performed By: #### C MP, ETOH, CBC #### [facility] [address] [place] [id number] [place] Cholesterol [Mass/volume] in Serum or PlasmaOrdered By: Geo Loomis on 11-08-2023 Cholesterol [Mass/Vol] 162 mg/dL Normal 140-200 [facility] Comment on above: Chol less than 200 m g/dl low riskChol 201-239 mg/dl borderline riskChol 240 mg/dl and greater high risk Order Comment: KAYLIE Erwin Comment use from ER Result Comment: Chol less than 200 mg/dl low risk Chol 201-239 mg/dl borderline risk Chol 240 mg/dl and greater high risk Performed By: #### U HCG, CUU, ADDONUAPLUS, URDS #### [facility] [address] [place] [address] [place] Cholesterol in LDL Calc [Mas s/Vol]Ordered By: Geo Loomis on 11-08-2023 Cholesterol in LDL [Mass/Vol] 86 mg/dL 0-100 [facility] Comment on above: LDL ATP III CLASSIFI CATIONLDL less than 100 mg/dL OptimalLDL 100-129 mg/dL Near or above optimalLDL 130-159 mg/dL Borderline highLDL 160-189 mg/dL HighLDL greater than 189 mg/dL Very high Cholesterol in VLDL Calc [Ma ss/Vol]Ordered By: Geo Loomis on 11-08-2023 Cholesterol in VLDL [Mass/Vol] 26 mg/dL [facility] Color of Urine by AutoOrdere d By: Art Pa on 11-08-2023 Color (U) Yellow Normal Yellow [facility] Comment on above: Order Comment: Name Collection Type:: Clean-Voided Midstream Performed By: #### U HCG, CUU, ADDONUAPLUS, URDS #### [facility] [address] [place] [id number] [place] Complete Blood Count Auto Di ffon 11-08-2023 Mean Corpuscular HGB Conc 33.2 g/dL Normal 32.0-35.0 [facility] Comment on above: Performed By: #### C MP, ETOH, CBC #### [facility] [address] [place] [id number] [place] Monocytes/100 WBC (Bld) 17.72 % Normal 0.00-20.00 [facility] Comment on above: Performed By: #### C MP, ETOH, CBC #### [facility] [address] [place] [id number] [place] NRBC% 0.0 /100{WBC} Normal 0-0.5 [facility] Comment on above: Performed By: #### C MP, ETOH, CBC #### [address] Comprehensive Metabolic Pane michelle 11-08-2023 Albumin [Mass/Vol] 4.1 g/dL Normal 3.5-5.7 [facility] Comment on above: Performed By: #### C MP, ETOH, CBC #### [place] [address] [place] Creatinine Clr Calc Pharmacy 97.34 Normal [facility] Comment on above: Result Comment: PERF ORMED BY: [place] [address] PATHOLOGIST [employer] TECHNOLOG[employer] SPECIALIST DANNIE MOODY M.D. Performed By: #### C MP, ETOH, CBC #### [address] GFR/1.73 sq M.predicted MDRD (S/P/Bld) [Vol rate/Area] mL/min/{1.73_m2} Normal [facility] Comment on above: Performed By: #### C MP, ETOH, CBC #### [place] [address] [place] Creatinine [Mass/volume] in Serum or PlasmaOrdered By: Art Pa on 11-08-2023 Creatinine [Mass/Vol] 0.91 mg/dL Normal 0.60-1.20 [facility] Comment on above: Performed By: #### C MP, ETOH, CBC #### [place] [address] [place] Dipstick and Microscopicon 0 11-08-2023 Bacteria,Urine Rare Normal None Seen [facility] Comment on above: Order Comment: Name Collection Type:: Clean-Voided Midstream Performed By: #### U HCG, CUU, ADDONUAPLUS, URDS #### [address] Bilirubin,Urine Negative Normal Negative [facility] Comment on above: Order Comment: Name Collection Type:: Clean-Voided Midstream Performed By: #### U HCG, CUU, ADDONUAPLUS, URDS #### [facility] [address] Glucose Ql (U) Normal Normal Normal [facility] Comment on above: Order Comment: Name Collection Type:: Clean-Voided Midstream Performed By: #### U HCG, CUU, ADDONUAPLUS, URDS #### [facility] [address] [place] [address] [place] Hyaline Casts,Urine None Normal 0-8 [facility] Comment on above: Order Comment: Name Collection Type:: Clean-Voided Midstream Performed By: #### U HCG, CUU, ADDONUAPLUS, URDS #### [address] Mucus,Urine Rare Normal [facility] Comment on above: Order Comment: Name Collection Type:: Clean-Voided Midstream Performed By: #### U HCG, CUU, ADDONUAPLUS, URDS #### [place] [address] [place] Nitrite,Urine Negative Normal Negative [facility] Comment on above: Order Comment: Name Collection Type:: Clean-Voided Midstream Performed By: #### U HCG, CUU, ADDONUAPLUS, URDS #### [address] Occult Blood,Urine 1+ High Negative [facility] Comment on above: Order Comment: Name Collection Type:: Clean-Voided Midstream Performed By: #### U HCG, CUU, ADDONUAPLUS, URDS #### [place] [address] [place] Protein,Urine Negative Normal Negative [facility] Comment on above: Order Comment: Name Collection Type:: Clean-Voided Midstream Performed By: #### U HCG, CUU, ADDONUAPLUS, URDS #### [place] [address] [place] RBC,Urine 3-4 Normal 0-4 [facility] Comment on above: Order Comment: Name Collection Type:: Clean-Voided Midstream Performed By: #### U HCG, CUU, ADDONUAPLUS, URDS #### [place] [address] [place] Specificy Brilliant,Urine 1.018 Normal 1.001-1.030 [facility] Comment on above: Order Comment: Name Collection Type:: Clean-Voided Midstream Performed By: #### U HCG, CUU, ADDONUAPLUS, URDS #### [place] [address] [place] Squamous Epithelial Cell,Urine 3-4 High 0-2 [facility] Comment on above: Order Comment: Name Collection Type:: Clean-Voided Midstream Performed By: #### U HCG, CUU, ADDONUAPLUS, URDS #### [address] Urobilinogen,Urine Normal Normal Normal [facility] Comment on above: Order Comment: Name Collection Type:: Clean-Voided Midstream Performed By: #### U HCG, CUU, ADDONUAPLUS, URDS #### [place] [address] [place] WBC,Urine 5-9 High 0-4 [facility] Comment on above: Order Comment: Name Collection Type:: Clean-Voided Midstream Performed By: #### U HCG, CUU, ADDONUAPLUS, URDS #### [place] [address] [place] Drug Screen,Urineon 11-08-19 24 Amphetamine Screen,Urine Negative Normal Negative [facility] Comment on above: Performed By: #### U HCG, CUU, ADDONUAPLUS, URDS #### [address] Barbiturate Screen,Urine Negative Normal Negative [facility] Comment on above: Performed By: #### U HCG, CUU, ADDONUAPLUS, URDS #### [address] Benzodiazepines Screen,Urine Negative Normal Negative [facility] Comment on above: Performed By: #### U HCG, CUU, ADDONUAPLUS, URDS #### [address] Cannabinoid Screen,Urine Negative Normal Negative [facility] Comment on above: Result Comment: Thes e are unconfirmed results and should not be used for legal purposes. Drug Cut-Off Concentration: AMPH 1000 ng/mL SANDEEP 200 ng/mL JERSON 200 ng/mL COCM 300 ng/mL OP 300 ng/mL PCP 25 ng/mL THC 20 ng/mL PERFORMED BY: [place] [address] PATHOLOGIST [employer] TECHNOLOGY SPECIALIST DANNIE MOODY M.D. Performed By: #### U HCG, CUU, ADDONUAPLUS, URDS #### [address] Cocaine Screen,Urine Negative Normal Negative [facility] Comment on above: Performed By: #### U HCG, CUU, ADDONUAPLUS, URDS #### [address] Opiate Screen,Urine Negative Normal Negative [facility] Comment on above: Performed By: #### U HCG, CUU, ADDONUAPLUS, URDS #### [address] Phencyclidine Screen,Urine Negative Normal Negative [facility] Comment on above: Performed By: #### U HCG, CUU, ADDONUAPLUS, URDS #### [address] Epithelial cells.squamous [# /area] in Urine sediment by Automated countOrdered By: Art Pa on 11-08-2023 Epithelial cells.squamous Auto (Urine sed) [#/Area] 3-4 [HPF] High 0-2 [facility] Erythrocyte distribution wid th [Ratio] by Automated countOrdered By: Art Pa on 11-08-2023 Erythrocyte distribution width (RBC) [Ratio] 15.2 % Normal 11.9-15.3 [facility] Comment on above: Performed By: #### C MP, ETOH, CBC #### [facility] [address] Erythrocytes [#/area] in Uri ne sediment by Automated countOrdered By: Art Pa on 11-08-2023 RBC Auto (Urine sed) [#/Area] 3-4 [HPF] 0-4 [facility] Erythrocytes [#/volume] in B lood by Automated countOrdered By: Art Pa on 11-08-2023 RBC (Bld) [#/Vol] 4.66 10*6/uL Normal 3.60-5.00 [facility] Comment on above: Performed By: #### C MP, ETOH, CBC #### [facility] [address] Ethanol [Mass/volume] in Ser um or PlasmaOrdered By: Art Pa on 11-08-2023 Ethanol [Mass/Vol] mg/dL Normal [facility] Comment on above: Performed By: #### C MP, ETOH, CBC #### [facility] [address] Ethanol [Mass/Vol] TNP [facility] Comment on above: Test not performed Ethyl Alcohol Profileon Percent Ethanol Not performed Normal [facility] Comment on above: Result Comment: PERF ORMED BY: [place] [address] PATHOLOGIST SE[employer]FOOD TECHNOLOGY SPECIALIST DANNIE MOODY M.D. Performed By: #### C MP, ETOH, CBC #### [facility] [address] [place] [address] Glucose [Mass/volume] in Ser um or PlasmaOrdered By: Art Pa on 11-08-2023 Glucose [Mass/Vol] 102 mg/dL High 70-100 [facility] Comment on above: ADA recommended refe rence rangeRandom Glucose Reference Range is dependent on time and content of last meal. Glucose of more than 200 mg/dL in a nonstressed, ambulatory subject supports the diagnosis of Diabetes Mellitus. Result Comment: [place] om Glucose Reference Range is dependent on time and content of last meal. Glucose of more than 200 mg/dL in a nonstressed, ambulatory subject supports the diagnosis of Diabetes Mellitus. ADA recommended reference range Performed By: #### C MP, ETOH, CBC #### [address] Glucose [Mass/volume] in Uri ne by Test stripOrdered By: Art Pa on 11-08-2023 Glucose Test strip (U) [Mass/Vol] Normal mg/dL Normal [facility] HCG ( test) IA.rapi d Ql (U)Ordered By: Art Pa on 11-08-2023 HCG ( test) Ql (U) Negative [facility] HCG,Urineon 11-08-2023 Beta HCG ( test) Ql (U) Negative Normal [facility] Comment on above: Order Comment: Name Collection Type:: Clean-Voided Midstream Result Comment: PERF ORMED BY: [place] [address] PATHOLOGIST [employer]FO[employer] TECHNOLOGY SPECIALIST DANNIE MOODY M.D. Performed By: #### U HCG, CUU, ADDONUAPLUS, URDS #### [address] Hematocrit [Volume Fraction] of Blood by Automated countOrdered By: Art Pa on 11-08-2023 Hematocrit (Bld) [Volume fraction] 41.1 % Normal 34.0-46.4 [facility] Comment on above: Performed By: #### C MP, ETOH, CBC #### [address] Hemoglobin Test strip Ql (U) Ordered By: Art Pa on 11-08-2023 Hemoglobin Ql (U) 1+ High Negative [facility] Hemoglobin [Mass/volume] in BloodOrdered By: Art Pa on 11-08-2023 Hemoglobin (Bld) [Mass/Vol] 13.6 g/dL Normal 11.8-15.4 [facility] Comment on above: Performed By: #### C MP, ETOH, CBC #### [place] [id number] [place] Hyaline casts [#/area] in Ur ine sediment by Automated countOrdered By: Art Pa on 11-08-2023 Hyaline casts Auto (Urine sed) [#/Area] None [LPF] 0-8 [facility] Ketones [Presence] in Urine by Test stripOrdered By: Art Pa on 11-08-2023 Ketones Ql (U) Negative Normal Negative [facility] Comment on above: Order Comment: Name Collection Type:: Clean-Voided Midstream Performed By: #### U HCG, CUU, ADDONUAPLUS, URDS #### [facility] [address] Leukocyte esterase [Presence ] in Urine by Test stripOrdered By: Art Pa on 11-08-2023 Leukocyte esterase Test strip Ql (U) 3+ High Negative [facility] Comment on above: Order Comment: Name Collection Type:: Clean-Voided Midstream Performed By: #### U HCG, CUU, ADDONUAPLUS, URDS #### [facility] [address] Leukocytes [#/area] in Urine sediment by Automated countOrdered By: rAt Pa on 11-08-2023 WBC Auto (Urine sed) [#/Area] 5-9 [HPF] High 0-4 [facility] Leukocytes [#/volume] correc hemalatha for nucleated erythrocytes in Blood by Automated counOrdered By: Art Pa on 11-08-2023 WBC corrected for nucl RBC Auto (Bld) [#/Vol] 11.4 10*3/uL 3.8-11.6 [facility] Leukocytes [#/volume] in Blo od by Automated countOrdered By: Art Pa on 11-08-2023 WBC (Bld) [#/Vol] 11.4 10*3/uL Normal 3.8-11.6 [facility] Comment on above: Performed By: #### C MP, ETOH, CBC #### [facility] [address] Lipid Panelon 11-08-2023 LDL Cholesterol,Calculated 86 mg/dL Normal 0-100 [facility] Comment on above: Order Comment: KAYLIE VASQUEZ Y Comment use from ER Result Comment: LDL ATP III CLASSIFICATION LDL less than 100 mg/dL Optimal LDL 100-129 mg/dL Near or above optimal LDL 130-159 mg/dL Borderline high LDL 160-189 mg/dL High LDL greater than 189 mg/dL Very high Performed By: #### U HCG, CUU, ZAHIDAONUAPLUS, URDS #### [address] Triglyceride w/Reflex 133 mg/dL Normal 0-149 [facility] Comment on above: Order Comment: KAYLIE Erwin Comment use from ER Result Comment: TRIG ATP III CLASSIFICATION TRIG less than 150 mg/dL Normal TRIG 150-199 mg/dL Borderline high TRIG 200-500 mg/dL High TRIG greater than 500 mg/dL Very high Standard traceable to the Center for Disease Conrtrol and Prevention (CDC) test method. Performed By: #### U HCG, CUU, ADDONERICAPLUS, URDS #### [address] VLDL CHOLESTEROL 26 mg/dL Normal [facility] Comment on above: Order Comment: KAYLIE Erwin Comment use from ER Performed By: #### U HCG, CUU, ADDONERICAPLUS, URDS #### [address] Lymphocytes [#/volume] in Bl ood by Automated countOrdered By: Art Pa on 11-08-2023 Lymphocytes (Bld) [#/Vol] 2.5 10*3/uL Normal 1.00-4.8 [facility] Comment on above: Performed By: #### C MP, ETOH, CBC #### [place] [address] [place] Lymphocytes/100 leukocytes i n Blood by Automated countOrdered By: Art Pa on 11-08-2023 Lymphocytes/100 WBC (Bld) 22.0 % Normal . [facility] Comment on above: Performed By: #### C MP, ETOH, CBC #### [place] [address] [place] MCH [Entitic mass] by Automa hemalatha countOrdered By: Art Pa on 11-08-2023 MCH (RBC) [Entitic mass] 29.3 pg Normal 24.7-34.3 [facility] Comment on above: Performed By: #### C MP, ETOH, CBC #### [facility] [address] MCHC Auto (RBC) [Mass/Vol]Or dered By: Art Pa on 11-08-2023 MCHC (RBC) [Mass/Vol] 33.2 g/dL 32.0-35.0 [facility] MCV [Entitic volume] by Auto mated countOrdered By: Art Pa on 11-08-2023 MCV (RBC) [Entitic vol] 88.1 fL Normal 80-[address] [facility] Comment on above: Performed By: #### C MP, ETOH, CBC #### [facility] [address] [place] [address] Monocyte distribution width [Entitic volume] in Blood by AutomatedOrdered By: Art Pa on 11-08-2023 Monocyte distribution width Auto (Bld) [Entitic vol] 17.72 % 0.00-20.00 [facility] Mucus [Presence] in Urine by AutomatedOrdered By: Art Pa on 11-08-2023 Mucus Auto Ql (U) Rare [LPF] [facility] Neutrophils [#/volume] in Bl ood by Automated countOrdered By: Art Pa on 11-08-2023 Neutrophils (Bld) [#/Vol] 7.9 10*3/uL High 1.8-7.7 [facility] Comment on above: Performed By: #### C MP, ETOH, CBC #### [facility] [address] Nitrite Test strip Ql (U)Ord ered By: Art Pa on 11-08-2023 Nitrite Ql (U) Negative Negative [facility] No Panel InformationOrdered By: Art Pa on 11-08-2023 Estimated GFR (CKD-EPI) > 60.0 mL/Min [facility] Creatinine Clearance (Chem 97.34 [facility] Nucleated erythrocytes [Pres ence] in Blood by Automated countOrdered By: Art Pa on 11-08-2023 Nucleated RBC Auto Ql (Bld) 0.0 /100{WBC} 0-0.5 [facility] Opiates [Presence] in Urine by Screen methodOrdered By: Art Pa on 11-08-2023 Opiates Screen Ql (U) Negative Negative [facility] Phencyclidine Screen Ql (U)O rdered By: Art Pa on 11-08-2023 Phencyclidine Ql (U) Negative Negative [facility] Platelet mean volume [Entiti c volume] in Blood by Automated countOrdered By: Art Pa on 11-08-2023 Platelet mean volume (Bld) [Entitic vol] 7.9 fL Normal 6.3-10.7 [facility] Comment on above: Performed By: #### C MP, ETOH, CBC #### [address] Platelets [#/volume] in Bloo d by Automated countOrdered By: Art Pa on 11-08-2023 Platelets (Bld) [#/Vol] 286 10*3/uL Normal 150-450 [facility] Comment on above: Performed By: #### C MP, ETOH, CBC #### [address] Potassium [Moles/volume] in Serum or PlasmaOrdered By: Art Pa on 11-08-2023 Potassium [Moles/Vol] 4.1 mmol/L Normal 3.5-5.1 [facility] Comment on above: Performed By: #### C MP, ETOH, CBC #### [place] [address] [place] Protein Test strip (U) [Mass /Vol]Ordered By: Art Pa on 11-08-2023 Protein (U) [Mass/Vol] Negative Negative [facility] Protein [Mass/volume] in Ser um or PlasmaOrdered By: Art Pa on 11-08-2023 Protein [Mass/Vol] 7.5 g/dL Normal 6.4-8.9 [facility] Comment on above: Performed By: #### C MP, ETOH, CBC #### [address] Serum globulin measurement b y calculation (mass/volume)Ordered By: Art Pa on 11-08-2023 Globulin (S) [Mass/Vol] 3.4 g/dL Normal [facility] Comment on above: Performed By: #### C MP, ETOH, CBC #### [facility] [address] Serum or plasma albumin/glob ulin mass ratioOrdered By: Art Pa on 11-08-2023 Albumin/Globulin [Mass ratio] 1.2 {ratio} Normal [facility] Comment on above: Performed By: #### C MP, ETOH, CBC #### [address] Serum or plasma anion gap de terminationOrdered By: Art Pa on 11-08-2023 Anion gap [Moles/Vol] 10.0 mmol/L Normal 6.0-15.0 [facility] Comment on above: Performed By: #### C MP, ETOH, CBC #### [address] Serum or plasma high density lipoprotein (HDL) cholesterol measurementOrdered By: Geo Loomis on 11-08-2023 Cholesterol in HDL [Mass/Vol] 49 mg/dL Normal 23-92 [facility] Comment on above: HDL CHOL ATP-III CLA SSIFICATION Cardiovascular RiskHDL > or equal to 60 mg/dL LOWHDL < 40 mg/dL HIGH Order Comment: KAYLIE Erwin Comment use from ER Result Comment: HDL CHOL ATP-III CLASSIFICATION Cardiovascular Risk HDL > or equal to 60 mg/dL LOW HDL < 40 mg/dL HIGH Performed By: #### U HCG, CUU, ADDONUAPLUS, URDS #### [facility] [address] [place] [address] Serum or plasma total choles terol/high density lipoprotein (HDL) cholesterol mass ratOrdered By: Geo Loomis on 11-08-2023 Cholesterol.total/Polina sterol in HDL [Mass ratio] 3.3 {ratio} Normal <5.0 [facility] Comment on above: Order Comment: KAYLIE Erwin Comment use from ER Performed By: #### U HCG, CUU, ADDONUAPLUS, URDS #### [facility] [address] [place] [address] Sodium [Moles/volume] in Ser um or PlasmaOrdered By: Art Pa on 11-08-2023 Sodium [Moles/Vol] 136 mmol/L Normal 136-145 [facility] Comment on above: Performed By: #### C MP, ETOH, CBC #### [facility] [address] Specific gravity Test strip (U) [Rel density]Ordered By: Art Pa on 11-08-2023 Specific gravity (U) [Rel density] 1.018 1.001-1.030 [facility] Thyroid Stim Hormone w/Rflxo n 11-08-2023 Thyroid Stim Hormone w/Rflx 3.00 u[iU]/mL Normal 0.45-5.33 [facility] Comment on above: Order Comment: FASTI SIDNEY Y Comment use from ER Performed By: #### U HCG, CUU, ADDONUAPLUS, URDS #### [facility] [address] Thyrotropin [Units/volume] i n Serum or PlasmaOrdered By: Geo Loomis on 11-08-2023 TSH Qn 3.00 m[IU]/L 0.45-5.33 [facility] Triglyceride [Mass/volume] i n Serum or PlasmaOrdered By: Geo Loomis on 11-08-2023 Triglyceride [Mass/Vol] 133 mg/dL 0-[address] [facility] Comment on above: TRIG ATP III CLASSIF ICATIONTRIG less than 150 mg/dL NormalTRIG 150-199 mg/dL Borderline highTRIG 200-500 mg/dL High TRIG greater than 500 mg/dL Very highStandard traceable to the Center for Disease Conrtrol and Prevention (CDC) test method. Urea nitrogen [Mass/volume] in Serum or PlasmaOrdered By: Art Pa on 11-08-2023 Urea nitrogen [Mass/Vol] 13 mg/dL Normal 7-25 [facility] Comment on above: Performed By: #### C MP, ETOH, CBC #### [facility] [address] Urine Cultureon 11-08-2023 Bacteria identified Cx Nom (U) >100,000 colonies/ml mixed bacterial skin contaminants 2 Days PERFORMED BY: [address] [id number] PATHOLOGIST [employer] TECHNOLOG[employer] SPECIALIST DANNIE MOODY M.D. Normal [facility] Comment on above: Performed By: #### U HCG, CUU, ADDONUAPLUS, URDS #### [facility] [address] [place] [address] Urine appearanceOrdered By: Art Pa on 11-08-2023 Appearance (U) Clear Normal Clear [facility] Comment on above: Order Comment: Name Collection Type:: Clean-Voided Midstream Performed By: #### U HCG, CUU, ADDONUAPLUS, URDS #### [facility] [address] [place] [address] Urine culture routineOrdered By: Art Pa on 11-08-2023 Bacteria identified Cx Nom (U) 2 Days [facility] Urobilinogen Test strip (U) [Mass/Vol]Ordered By: Art Pa on 11-08-2023 Urobilinogen (U) [Mass/Vol] Normal mg/dL Normal [facility] Vitamin D 25 Hydroxy Totalon 11-08-2023 Vitamin D 25 Hydroxy Total 49.5 ng/mL Normal 30-100 [facility] Comment on above: Order Comment: KAYLIE Erwin Comment use from ER Result Comment: JAYSON MIN D STATUS 25(OH)VITAMIN D RANGE (ng/mL) Deficient <20 Insufficient 20 to <30 Sufficient 30 to 100 Reference: Braeden MF,Marsha NC, Ez MULTANI, et al. Evaluation,treatment, and prevention of vitamin D deficiency; an Endocrine Society clinical practice guideline. JCEM. 2010; 96(7):1911-30. PERFORMED BY: [place] [address] PATHOLOGIST SEAFOOD TECHNOLOGY SPECIALIST DANNIE MOODY M.D. Performed By: #### U HCG, CUU, ADDONUAPLUS, URDS #### [facility] [address] [place], [place] [id number] [facility] Vitamin D+Metabolites [Mass/ volume] in Serum or PlasmaOrdered By: Geo Loomis on 11-08-2023 Vitamin D+Metabolites [Mass/Vol] 49.5 ng/mL 30-100 [facility] Comment on above: VITAMIN D STATUS 25( [place])VITAMIN D RANGE (ng/mL) Deficient <20 Insufficient 20 to <30Sufficient 30 to 100Reference: Braeden MF,aMrsha NC, Ez MULTANI, et al. Evaluation,treatment, and prevention of vitamin D deficiency; an Endocrine Society clinical practice guideline. JCEM. 2010; 96(7):1911-30. pH of Urine by Test stripOrd ered By: Art Pa on 11-08-2023 pH (U) 5.0 [pH] Normal 5.0-9.0 [facility] Comment on above: Order Comment: Name Collection Type:: Clean-Voided Midstream Performed By: #### U HCG, CUU, ADDONUAPLUS, URDS #### [facility] [address] Alanine aminotransferase [En zymatic activity/volume] in Serum or PlasmaOrdered By: Antolin Abarca on 05-24-2022 ALT [Catalytic activity/Vol] 15 U/L 7-52 [facility] Albumin [Mass/volume] in Ser um or Plasma by Bromocresol green (BCG) dye binding methoOrdered By: Antolin Abarca on 05-24-2022 Albumin BCG dye [Mass/Vol] 4.0 g/dL 3.5-5.7 [facility] Alkaline phosphatase [Enzyma tic activity/volume] in Serum or PlasmaOrdered By: Antolin Abarca on 05-24-2022 ALP [Catalytic activity/Vol] 61 U/L 34-104 [facility] Amphetamine Screen Ql (U)Ord ered By: Antolin Abarca on 05-24-2022 Amphetamines Ql (U) Negative Negative [facility] Aspartate aminotransferase [ Enzymatic activity/volume] in Serum or PlasmaOrdered By: Antolin Abarca on 05-24-2022 AST [Catalytic activity/Vol] 19 U/L 13-39 [facility] Automated epithelial cells c ount in urine sediment (number/area)Ordered By: Antolin Abarca on 05-24-2022 Epithelial cells Auto (Urine sed) [#/Area] Rare [HPF] 0-2 [facility] Automated erythrocytes count in urine sediment (number/area)Ordered By: Antolin Aabrca on 05-24-2022 RBC Auto (Urine sed) [#/Area] 1-2 [HPF] 0-4 [facility] Automated leukocytes count i n urine sediment (number/area)Ordered By: Antolin Abarca on 05-24-2022 WBC Auto (Urine sed) [#/Area] 1-2 [HPF] 0-4 [facility] Automated urine hyaline cast s count (number/volume)Ordered By: Antolin Abarca on 05-24-2022 Hyaline casts Auto (U) [#/Vol] Rare [LPF] 0-1 [facility] Barbiturates [Presence] in U rine by Screen methodOrdered By: Antolin Abarca on 05-24-2022 Barbiturates Screen Ql (U) Negative Negative [facility] Basophils Auto (Bld) [#/Vol] Ordered By: Antolin Abarca on 05-24-2022 Basophils (Bld) [#/Vol] 0.0 10*3/uL 0.0-0.2 [facility] Basophils/100 WBC Auto (Bld) Ordered By: Antolin Abarca on 05-24-2022 Basophils/100 WBC (Bld) 0.4 % . [facility] Benzodiazepines Screen Ql (U )Ordered By: Antolin Abarca on 05-24-2022 Benzodiazepines Ql (U) Negative Negative [facility] Benzoylecgonine [Presence] i n Urine by Screen methodOrdered By: Antolin Abarca on 05-24-2022 Benzoylecgonine Screen Ql (U) Negative Negative [facility] Bilirubin Test strip Ql (U)O rdered By: Antolin Abarca on 05-24-2022 Bilirubin Ql (U) Negative Negative [facility] Bilirubin.total [Mass/volume ] in Serum or PlasmaOrdered By: Antolin Abarca on 05-24-2022 Bilirubin [Mass/Vol] 0.3 mg/dL 0.3-1.0 [facility] COVID-19 SOFIAOrdered By: Hay Abarca on 05-24-2022 SARS-CoV+SARS-CoV-2 (COVID-19) Ag IA.rapid Ql (Resp) Negative Negative [facility] Comment on above: This is a duplicate Rayna SARS Antigen (SKYLA) result to be used for statistical tracking purpose only. Calcium [Mass/volume] in Ser um or PlasmaOrdered By: Antolin Abarca on 05-24-2022 Calcium [Mass/Vol] 9.3 mg/dL 8.6-10.3 [facility] Cannabinoids [Presence] in U rine by Screen methodOrdered By: Antolin Abarca on 05-24-2022 Cannabinoids Screen Ql (U) Negative Negative [facility] Comment on above: These are unconfirme d results and should not be used for legal purposes. Drug Cut-Off Concentration: AMPH 1000 ng/mL SANDEEP 200 ng/mL JERSON 200 ng/mL COCM 300 ng/mL OP 300 ng/mL PCP 25 ng/mL THC 20 ng/mL Carbon dioxide, total [Moles /volume] in Serum or PlasmaOrdered By: Antolin Abarca on 05-24-2022 CO2 [Moles/Vol] 20.9 mmol/L 21.0-31.0 [facility] Chloride [Moles/volume] in S monse or PlasmaOrdered By: Antolin Abarca on 05-24-2022 Chloride [Moles/Vol] 108 mmol/L 98-107 [facility] Color Auto (U)Ordered By: Hay Abarca on 05-24-2022 Color (U) Yellow Yellow [facility] Creatinine [Mass/volume] in Serum or PlasmaOrdered By: Antolin Abarca on 05-24-2022 Creatinine [Mass/Vol] 0.79 mg/dL 0.60-1.20 [facility] Eosinophils Auto (Bld) [#/Vo l]Ordered By: Antolin Abarca on 05-24-2022 Eosinophils (Bld) [#/Vol] 0.3 10*3/uL 0.0-0.45 [facility] Eosinophils/100 WBC Auto (Bl d)Ordered By: Antolin Abarca on 05-24-2022 Eosinophils/100 WBC (Bld) 4.2 % . [facility] Erythrocyte distribution wid th Auto (RBC) [Ratio]Ordered By: Antolin Abarca on 05-24-2022 Erythrocyte distribution width (RBC) [Ratio] 15.6 % 11.9-15.3 [facility] Ethanol [Mass/volume] in Ser um or PlasmaOrdered By: Antolin Abarca on 05-24-2022 Ethanol [Mass/Vol] 163 mg/dL [facility] Ethanol [Mass/Vol] 0.163 % [facility] Globulin Calc (S) [Mass/Vol] Ordered By: Antolin Abarca on 05-24-2022 Globulin (S) [Mass/Vol] 2.8 g/dL [facility] Glucose [Mass/volume] in Ser um or PlasmaOrdered By: Antolin Abarca on 05-24-2022 Glucose [Mass/Vol] 83 mg/dL 74-109 [facility] Comment on above: ADA recommended refe rence rangeRandom Glucose Reference Range is dependent on time and content of last meal. Glucose of more than 200 mg/dL in a nonstressed, ambulatory subject supports the diagnosis of Diabetes Mellitus. HCG ( test) IA.rapi d Ql (U)Ordered By: Antolin Abarca on 05-24-2022 HCG ( test) Ql (U) Negative [facility] Hematocrit Auto (Bld) [Volum e fraction]Ordered By: Antolin Abarca on 05-24-2022 Hematocrit (Bld) [Volume fraction] 40.1 % 34.0-46.4 [facility] Hemoglobin [Mass/volume] in BloodOrdered By: Antolin Abarca on 05-24-2022 Hemoglobin (Bld) [Mass/Vol] 13.2 g/dL 11.8-15.4 [facility] Ketones Auto test strip (U) [Mass/Vol]Ordered By: Antolin Abarca on 05-24-2022 Ketones (U) [Mass/Vol] Negative Negative Fi [facility] Laboratory - Chemistry and C hemistry - challengeOrdered By: Antolin Abarca on 05-24-2022 GFR/1.73 sq M.predicted MDRD (S/P/Bld) [Vol rate/Area] mL/min/{1.73_m2} [facility] Leukocytes [#/volume] correc hemalatha for nucleated erythrocytes in Blood by Automated counOrdered By: Antolin Abarca on 05-24-2022 WBC corrected for nucl RBC Auto (Bld) [#/Vol] 7.0 10*3/uL 3.8-11.6 [facility] Lymphocytes Auto (Bld) [#/Vo l]Ordered By: Antolin Abarca on 05-24-2022 Lymphocytes (Bld) [#/Vol] 2.1 10*3/uL 1.00-4.8 [facility] Lymphocytes/100 WBC Auto (Bl d)Ordered By: Antolin Abarca on 05-24-2022 Lymphocytes/100 WBC (Bld) 29.2 % . [facility] MCH Auto (RBC) [Entitic mass ]Ordered By: Antolin Abarca on 05-24-2022 MCH (RBC) [Entitic mass] 29.2 pg 24.7-34.3 [facility] MCHC Auto (RBC) [Mass/Vol]Or dered By: Antolin Abarca on 05-24-2022 MCHC (RBC) [Mass/Vol] 33.0 g/dL 32.0-35.0 [facility] MCV Auto (RBC) [Entitic vol] Ordered By: Antolin Abarca on 05-24-2022 MCV (RBC) [Entitic vol] 88.6 fL 80-[address] [facility] Monocyte distribution width [Entitic volume] in Blood by AutomatedOrdered By: Antolin Abarca on 05-24-2022 Monocyte distribution width Auto (Bld) [Entitic vol] 17.73 % 0.00-20.00 [facility] Monocytes Auto (Bld) [#/Vol] Ordered By: Antolin Abarca on 05-24-2022 Monocytes (Bld) [#/Vol] 0.6 10*3/uL 0.0-0.8 [facility] Monocytes/100 WBC Auto (Bld) Ordered By: Antolin Abarca on 05-24-2022 Monocytes/100 WBC (Bld) 8.2 % . [facility] Neutrophils Auto (Bld) [#/Vo l]Ordered By: Antolin Abarca on 05-24-2022 Neutrophils (Bld) [#/Vol] 4.1 10*3/uL 1.8-7.7 [facility] Neutrophils/100 WBC Auto (Bl d)Ordered By: Antolin Abarca on 05-24-2022 Neutrophils/100 WBC (Bld) 58.0 % . [facility] Nitrite Test strip Ql (U)Ord ered By: Antolin Abarca on 05-24-2022 Nitrite Ql (U) Negative Negative [facility] No Panel InformationOrdered By: Antolin Abarca on 05-24-2022 Pharmacy Creatinine Clearance (Chem 107.39 [facility] SARS Antigen (LFIA) [facility] Nucleated erythrocytes [Pres ence] in Blood by Automated countOrdered By: Antolin Abarca on 05-24-2022 Nucleated RBC Auto Ql (Bld) 0.0 /100{WBC} 0-0.5 [facility] Opiates [Presence] in Urine by Screen methodOrdered By: Antolin Abarca on 05-24-2022 Opiates Screen Ql (U) Negative Negative [facility] Phencyclidine Screen Ql (U)O rdered By: Antolin Abarca on 05-24-2022 Phencyclidine Ql (U) Negative Negative [facility] Platelet mean volume Auto (B ld) [Entitic vol]Ordered By: Antolin Abarca on 05-24-2022 Platelet mean volume (Bld) [Entitic vol] 7.3 fL 6.3-10.7 [facility] Platelets Auto (Bld) [#/Vol] Ordered By: Antolin Abarca on 05-24-2022 Platelets (Bld) [#/Vol] 285 10*3/uL 150-450 [facility] Potassium [Moles/volume] in Serum or PlasmaOrdered By: Antolin Abarca on 05-24-2022 Potassium [Moles/Vol] 4.4 mmol/L 3.5-5.1 [facility] Protein Auto test strip (U) [Mass/Vol]Ordered By: Antolin Abarca on 05-24-2022 Protein (U) [Mass/Vol] Negative Negative [facility] Protein [Mass/volume] in Ser um or PlasmaOrdered By: Antolin Abarca on 05-24-2022 Protein [Mass/Vol] 6.8 g/dL 6.4-8.9 [facility] RBC Auto (Bld) [#/Vol]Ordere d By: Antolin Abarca on 05-24-2022 RBC (Bld) [#/Vol] 4.53 10*6/uL 3.60-5.00 [facility] Serum or plasma albumin/glob ulin mass ratioOrdered By: Antolin Abarca on 05-24-2022 Albumin/Globulin [Mass ratio] 1.4 {ratio} [facility] Serum or plasma anion gap de terminationOrdered By: Antolin Abarca on 05-24-2022 Anion gap [Moles/Vol] 13.5 mmol/L 6.0-15.0 Fi [facility] Sodium [Moles/volume] in Ser um or PlasmaOrdered By: Antolin Abarca on 05-24-2022 Sodium [Moles/Vol] 138 mmol/L 136-145 [facility] Specific gravity Auto test s trip (U) [Rel density]Ordered By: Antolin Abarca on 05-24-2022 Specific gravity (U) [Rel density] 1.000 1.001-1.030 [facility] Urea nitrogen [Mass/volume] in Serum or PlasmaOrdered By: Antolin Abarca on 05-24-2022 Urea nitrogen [Mass/Vol] 8 mg/dL 7-25 [facility] Urine bacteria detection by automated methodOrdered By: Antolin Abarca on 05-24-2022 Bacteria Auto Ql (U) Rare None Seen [facility] Urine clarity by refractomet ry automatedOrdered By: Antolin Abarca on 05-24-2022 Clarity Refractometry automated (U) Clear Clear [facility] Urine glucose measurement by automated test strip (mass/volume)Ordered By: Antolin Abarca on 05-24-2022 Glucose Auto test strip (U) [Mass/Vol] Normal mg/dL Normal [facility] Urine hemoglobin detection b y automated test stripOrdered By: Antolin Abarca on 05-24-2022 Hemoglobin Auto test strip Ql (U) 2+ Negative [facility] Urine leukocyte esterase det ection by automated test stripOrdered By: Antolin Abarca on 05-24-2022 Leukocyte esterase Auto test strip Ql (U) 2+ Negative [facility] Urobilinogen Auto test strip (U) [Mass/Vol]Ordered By: Antolin Abarca on 05-24-2022 Urobilinogen (U) [Mass/Vol] Normal mg/dL Normal [facility] WBC Auto (Bld) [#/Vol]Ordere d By: Antolin Abarca on 05-24-2022 WBC (Bld) [#/Vol] 7.0 10*3/uL 3.8-11.6 [facility] pH Auto test strip (U)Ordere d By: Antolin Abarca on 05-24-2022 pH (U) 6.0 [pH] 5.0-9.0 [facility] Cholesterol [Mass/volume] in Serum or PlasmaOrdered By: Geo Loomis on 05-11-2022 Cholesterol [Mass/Vol] 154 mg/dL 140-200 [facility] Comment on above: Chol less than 200 m g/dl low riskChol 201-239 mg/dl borderline riskChol 240 mg/dl and greater high risk Cholesterol in LDL Calc [Mas s/Vol]Ordered By: Geo Loomis on 05-11-2022 Cholesterol in LDL [Mass/Vol] 76 mg/dL 0-100 [facility] Comment on above: LDL ATP III CLASSIFI CATIONLDL less than 100 mg/dL OptimalLDL 100-129 mg/dL Near or above optimalLDL 130-159 mg/dL Borderline highLDL 160-189 mg/dL HighLDL greater than 189 mg/dL Very high Cholesterol in VLDL Calc [Ma ss/Vol]Ordered By: Geo Loomis on 05-11-2022 Cholesterol in VLDL [Mass/Vol] 24 mg/dL [facility] Serum or plasma high density lipoprotein (HDL) cholesterol measurementOrdered By: Geo Loomis on 05-11-2022 Cholesterol in HDL [Mass/Vol] 54 mg/dL 35-85 [facility] Comment on above: HDL CHOL ATP-III CLA SSIFICATION Cardiovascular RiskHDL > or equal to 60 mg/dL LOWHDL < 40 mg/dL HIGH Serum or plasma total choles terol/high density lipoprotein (HDL) cholesterol mass ratOrdered By: Geo Loomis on 05-11-2022 Cholesterol.total/Polina sterol in HDL [Mass ratio] 2.9 {ratio} <5.0 [facility] Thyrotropin [Units/volume] i n Serum or PlasmaOrdered By: Geo Loomis on 05-11-2022 TSH Qn 1.87 m[IU]/L 0.45-5.33 [facility] Triglyceride [Mass/volume] i n Serum or PlasmaOrdered By: Geo Loomis on 05-11-2022 Triglyceride [Mass/Vol] 122 mg/dL 0-[address] [facility] Comment on above: TRIG ATP III CLASSIF ICATIONTRIG less than 150 mg/dL NormalTRIG 150-199 mg/dL Borderline highTRIG 200-500 mg/dL High TRIG greater than 500 mg/dL Very highStandard traceable to the Center for Disease Conrtrol and Prevention (CDC) test method. Vitamin D+Metabolites [Mass/ volume] in Serum or PlasmaOrdered By: Geo Loomis on 05-11-2022 Vitamin D+Metabolites [Mass/Vol] 22.0 ng/mL 30-100 [facility] Comment on above: VITAMIN D STATUS 25( [place])VITAMIN D RANGE (ng/mL) Deficient <20 Insufficient 20 to <30Sufficient 30 to 100Reference: Braeden MF,Marsha PRIEST, Ez MULTANI, et al. Evaluation,treatment, and prevention of vitamin D deficiency; an Endocrine Society clinical practice guideline. JCEM. 2010; 96(7):1911-30. Alanine aminotransferase [En zymatic activity/volume] in Serum or PlasmaOrdered By: Antolin Abarca on 05-10-2022 ALT [Catalytic activity/Vol] 17 U/L 7-52 [facility] Albumin [Mass/volume] in Ser um or Plasma by Bromocresol green (BCG) dye binding methoOrdered By: Antolin Abarca on 05-10-2022 Albumin BCG dye [Mass/Vol] 4.0 g/dL 3.5-5.7 [facility] Alkaline phosphatase [Enzyma tic activity/volume] in Serum or PlasmaOrdered By: Antolin Abarca on 05-10-2022 ALP [Catalytic activity/Vol] 63 U/L 34-104 [facility] Amphetamine Screen Ql (U)Ord ered By: Antolin Abarca on 05-10-2022 Amphetamines Ql (U) Negative Negative [facility] Aspartate aminotransferase [ Enzymatic activity/volume] in Serum or PlasmaOrdered By: Antolin Abarca on 05-10-2022 AST [Catalytic activity/Vol] 17 U/L 13-39 [facility] Automated erythrocytes count in urine sediment (number/area)Ordered By: Antolin Abarca on 05-10-2022 RBC Auto (Urine sed) [#/Area] 20-49 [HPF] 0-4 [facility] Automated leukocytes count i n urine sediment (number/area)Ordered By: Antolin Abarca on 05-10-2022 WBC Auto (Urine sed) [#/Area] 20-49 [HPF] 0-4 [facility] Automated urine hyaline cast s count (number/volume)Ordered By: Antolin Abarca on 05-10-2022 Hyaline casts Auto (U) [#/Vol] None seen [LPF] 0-1 [facility] Barbiturates [Presence] in U rine by Screen methodOrdered By: Antolin Abarca on 05-10-2022 Barbiturates Screen Ql (U) Negative Negative [facility] Basophils Auto (Bld) [#/Vol] Ordered By: Antolin Abarca on 05-10-2022 Basophils (Bld) [#/Vol] 0.1 10*3/uL 0.0-0.2 [facility] Basophils/100 WBC Auto (Bld) Ordered By: Antolin Abarca on 05-10-2022 Basophils/100 WBC (Bld) 0.8 % . [facility] Benzodiazepines Screen Ql (U )Ordered By: Antolin Abarca on 05-10-2022 Benzodiazepines Ql (U) Negative Negative [facility] Benzoylecgonine [Presence] i n Urine by Screen methodOrdered By: Antolin Abarca on 05-10-2022 Benzoylecgonine Screen Ql (U) Negative Negative [facility] Bilirubin Test strip Ql (U)O rdered By: Antolin Abarca on 05-10-2022 Bilirubin Ql (U) Negative Negative [facility] Bilirubin.total [Mass/volume ] in Serum or PlasmaOrdered By: Antolin Abarca on 05-10-2022 Bilirubin [Mass/Vol] 0.9 mg/dL 0.3-1.0 [facility] Calcium [Mass/volume] in Ser um or PlasmaOrdered By: Antolin Abarca on 05-10-2022 Calcium [Mass/Vol] 9.5 mg/dL 8.6-10.3 [facility] Cannabinoids [Presence] in U rine by Screen methodOrdered By: Antolin Abarca on 05-10-2022 Cannabinoids Screen Ql (U) Negative Negative [facility] Comment on above: These are unconfirme d results and should not be used for legal purposes. Drug Cut-Off Concentration: AMPH 1000 ng/mL SANDEEP 200 ng/mL JERSON 200 ng/mL COCM 300 ng/mL OP 300 ng/mL PCP 25 ng/mL THC 20 ng/mL Carbon dioxide, total [Moles /volume] in Serum or PlasmaOrdered By: Antolin Abarca on 05-10-2022 CO2 [Moles/Vol] 28.1 mmol/L 21.0-31.0 [facility] Casts typing in urine sedime nt by light microscopyOrdered By: Antolin Abarca on 05-10-2022 Casts LM Nom (Urine sed) None seen [LPF] None Seen [facility] Chloride [Moles/volume] in S monse or PlasmaOrdered By: Antolin Abarca on 05-10-2022 Chloride [Moles/Vol] 103 mmol/L 98-107 [facility] Color Auto (U)Ordered By: Hay Abarca on 05-10-2022 Color (U) Dark yellow Yellow [facility] Creatinine [Mass/volume] in Serum or PlasmaOrdered By: Antolin Abarca on 05-10-2022 Creatinine [Mass/Vol] 0.81 mg/dL 0.60-1.20 [facility] Eosinophils Auto (Bld) [#/Vo l]Ordered By: Antolin Abarca on 05-10-2022 Eosinophils (Bld) [#/Vol] 0.2 10*3/uL 0.0-0.45 [facility] Eosinophils/100 WBC Auto (Bl d)Ordered By: Antolin Abarca on 05-10-2022 Eosinophils/100 WBC (Bld) 1.9 % . [facility] Erythrocyte distribution wid th Auto (RBC) [Ratio]Ordered By: Antolin Abarca on 05-10-2022 Erythrocyte distribution width (RBC) [Ratio] 15.1 % 11.9-15.3 [facility] Ethanol [Mass/volume] in Ser um or PlasmaOrdered By: Antolin Abarca on 05-10-2022 Ethanol [Mass/Vol] mg/dL [facility] Ethanol [Mass/Vol] TNP [facility] Comment on above: Test not performed Globulin Calc (S) [Mass/Vol] Ordered By: Antolin Abarca on 05-10-2022 Globulin (S) [Mass/Vol] 2.9 g/dL [facility] Glucose [Mass/volume] in Ser um or PlasmaOrdered By: Antolin Abarca on 05-10-2022 Glucose [Mass/Vol] 87 mg/dL 74-109 [facility] Comment on above: ADA recommended refe rence rangeRandom Glucose Reference Range is dependent on time and content of last meal. Glucose of more than 200 mg/dL in a nonstressed, ambulatory subject supports the diagnosis of Diabetes Mellitus. HCG ( test) IA.rapi d Ql (U)Ordered By: Antolin Abarca on 05-10-2022 HCG ( test) Ql (U) Negative [facility] Hematocrit Auto (Bld) [Volum e fraction]Ordered By: Antolin Abraca on 05-10-2022 Hematocrit (Bld) [Volume fraction] 42.9 % 34.0-46.4 [facility] Hemoglobin [Mass/volume] in BloodOrdered By: Antolin Abarca on 05-10-2022 Hemoglobin (Bld) [Mass/Vol] 14.1 g/dL 11.8-15.4 [facility] Ketones Auto test strip (U) [Mass/Vol]Ordered By: Antolin Abarca on 05-10-2022 Ketones (U) [Mass/Vol] Trace [facility] - [facility] and C hemistry - challengeOrdered By: Antolin Abarca on 05-10-2022 GFR/1.73 sq M.predicted MDRD (S/P/Bld) [Vol rate/Area] mL/min/{1.73_m2} [facility] Leukocytes [#/volume] correc hemalatha for nucleated erythrocytes in Blood by Automated counOrdered By: Antolin Abarca on 05-10-2022 WBC corrected for nucl RBC Auto (Bld) [#/Vol] 10.7 10*3/uL 3.8-11.6 [facility] Lymphocytes Auto (Bld) [#/Vo l]Ordered By: Antolin Abarca on 05-10-2022 Lymphocytes (Bld) [#/Vol] 2.3 10*3/uL 1.00-4.8 [facility] Lymphocytes/100 WBC Auto (Bl d)Ordered By: Antolin Abarca on 05-10-2022 Lymphocytes/100 WBC (Bld) 21.1 % . [facility] MCH Auto (RBC) [Entitic mass ]Ordered By: Antolin Abarca on 05-10-2022 MCH (RBC) [Entitic mass] 29.1 pg 24.7-34.3 [facility] MCHC Auto (RBC) [Mass/Vol]Or dered By: Antolin Abarca on 05-10-2022 MCHC (RBC) [Mass/Vol] 32.9 g/dL 32.0-35.0 [facility] MCV Auto (RBC) [Entitic vol] Ordered By: Antolin Abarca on 05-10-2022 MCV (RBC) [Entitic vol] 88.3 fL 80-[address] [facility] Monocyte distribution width [Entitic volume] in Blood by AutomatedOrdered By: Antolin Abarca on 05-10-2022 Monocyte distribution width Auto (Bld) [Entitic vol] 18.66 % 0.00-20.00 [facility] Monocytes Auto (Bld) [#/Vol] Ordered By: Antolin Abarca on 05-10-2022 Monocytes (Bld) [#/Vol] 0.9 10*3/uL 0.0-0.8 [facility] Monocytes/100 WBC Auto (Bld) Ordered By: Antolin Abarca on 05-10-2022 Monocytes/100 WBC (Bld) 8.7 % . [facility] Neutrophils Auto (Bld) [#/Vo l]Ordered By: Antolin Abarca on 05-10-2022 Neutrophils (Bld) [#/Vol] 7.2 10*3/uL 1.8-7.7 [facility] Neutrophils/100 WBC Auto (Bl d)Ordered By: Antolin Abarca on 05-10-2022 Neutrophils/100 WBC (Bld) 67.5 % . [facility] Nitrite Test strip Ql (U)Ord ered By: Antolin Abarca on 05-10-2022 Nitrite Ql (U) Negative Negative [facility] No Panel InformationOrdered By: Antolin Abarca on 05-10-2022 Pharmacy Creatinine Clearance (Chem 102.62 [facility] Nucleated erythrocytes [Pres ence] in Blood by Automated countOrdered By: Antolin Abarca on 05-10-2022 Nucleated RBC Auto Ql (Bld) 0.0 /100{WBC} 0-0.5 [facility] Opiates [Presence] in Urine by Screen methodOrdered By: Antolin Abarca on 05-10-2022 Opiates Screen Ql (U) Negative Negative [facility] Phencyclidine Screen Ql (U)O rdered By: Antolin Abarca on 05-10-2022 Phencyclidine Ql (U) Negative Negative [facility] Platelet mean volume Auto (B ld) [Entitic vol]Ordered By: Antolin Abarca on 05-10-2022 Platelet mean volume (Bld) [Entitic vol] 6.8 fL 6.3-10.7 [facility] Platelets Auto (Bld) [#/Vol] Ordered By: Antolin Abarca on 05-10-2022 Platelets (Bld) [#/Vol] 267 10*3/uL 150-450 [facility] Potassium [Moles/volume] in Serum or PlasmaOrdered By: Antolin Abarca on 05-10-2022 Potassium [Moles/Vol] 4.7 mmol/L 3.5-5.1 [facility] Protein Auto test strip (U) [Mass/Vol]Ordered By: Antolin Abarca on 05-10-2022 Protein (U) [Mass/Vol] 30 mg/dL Negative [facility] Protein [Mass/volume] in Ser um or PlasmaOrdered By: Antolin Abarca on 05-10-2022 Protein [Mass/Vol] 6.9 g/dL 6.4-8.9 [facility] RBC Auto (Bld) [#/Vol]Ordere d By: Antolin Abarca on 05-10-2022 RBC (Bld) [#/Vol] 4.86 10*6/uL 3.60-5.00 [facility] Serum or plasma albumin/glob ulin mass ratioOrdered By: Antolin Abarca on 05-10-2022 Albumin/Globulin [Mass ratio] 1.4 {ratio} [facility] Serum or plasma anion gap de terminationOrdered By: Antolin Abarca on 05-10-2022 Anion gap [Moles/Vol] 9.6 mmol/L 6.0-15.0 [facility] Sodium [Moles/volume] in Ser um or PlasmaOrdered By: Antolin Abarca on 05-10-2022 Sodium [Moles/Vol] 136 mmol/L 136-145 [facility] Specific gravity Auto test s trip (U) [Rel density]Ordered By: Antolin Abarca on 05-10-2022 Specific gravity (U) [Rel density] 1.028 1.001-1.030 [facility] Squamous epithelial cells de tection in urine sediment by light microscopyOrdered By: Antolin Abarca on 05-10-2022 Epithelial cells.squamous LM Ql (Urine sed) 3-4 [HPF] 0-2 [facility] Urea nitrogen [Mass/volume] in Serum or PlasmaOrdered By: Antolin Abarca on 05-10-2022 Urea nitrogen [Mass/Vol] 11 mg/dL 7-25 [facility] Urine bacteria detection by automated methodOrdered By: Antolin Abarca on 05-10-2022 Bacteria Auto Ql (U) 1+ None Seen [facility] Urine clarity by refractomet ry automatedOrdered By: Antolin Abarca on 05-10-2022 Clarity Refractometry automated (U) Cloudy Clear [facility] Urine culture routineOrdered By: Antolin Abarca on 05-10-2022 Bacteria identified Cx Nom (U) 2 Days [facility] Urine glucose measurement by automated test strip (mass/volume)Ordered By: Antolin Abarca on 05-10-2022 Glucose Auto test strip (U) [Mass/Vol] Normal mg/dL Normal [facility] Urine hemoglobin detection b y automated test stripOrdered By: Antolin Abarca on 05-10-2022 Hemoglobin Auto test strip Ql (U) 2+ Negative [facility] Urine leukocyte esterase det ection by automated test stripOrdered By: Antolin Abarca on 05-10-2022 Leukocyte esterase Auto test strip Ql (U) 3+ Negative [facility] Urobilinogen Auto test strip (U) [Mass/Vol]Ordered By: Antolin Abarca on 05-10-2022 Urobilinogen (U) [Mass/Vol] Normal mg/dL Normal [facility] WBC Auto (Bld) [#/Vol]Ordere d By: Antolin Abarca on 05-10-2022 WBC (Bld) [#/Vol] 10.7 10*3/uL 3.8-11.6 [facility] Center pH Auto test strip (U)Ordere d By: Antolin Abarca on 05-10-2022 pH (U) 6.0 [pH] 5.0-9.0 [facility] Covid-19 PCR (CVDTB)on SARS-CoV-2 (COVID-19) RNA PITO+probe Ql (Unsp spec) Detected Abnormal NOT DETECTED [facility] Comment on above: Result Comment: This test is not yet approved or cleared by the [place] FDA. When there are no FDA-approved or cleared tests available, and other criteria are met, FDA can make tests available under an emergency access mechanism called an Emergency Use Authorization (EUA). The EUA for this test is supported by the Steaming Machine Operator of Health and Human Service's [...] Performed By: #### L IPA, CMP #### [facility] [address] [place] [id number] [address] Toy Macario INFLUENZA A AND B AGon 03-13 INFLUANEGH SEE BELOW Normal [facility] Comment on above: Result Comment: Nega tive for Flu A protein angiten. Infection due to Flu A cannot be ruled out. Flu A angiten in the sample may be below the detection limit of the test. Performed By: #### C MP, LIPA #### [facility] [address] [address] [address] Toy Macario [facility] SEE BELOW Normal [facility] Comment on above: Result Comment: Nega tive for Flu B protein antigen. Infection due to Flu B cannot be ruled out. Flu B antigen in the sample may be below the detection limit of the test. Performed By: #### C MP, LIPA #### [facility] [address] [address] [address] Toy Macario INFLUENZA A AG Negative Normal NEGATIVE SEE COMMENT [facility] Comment on above: Performed By: #### C MP, LIPA #### [facility] [address] [address] [address] Toy Macario INFLUENZA B AG Negative Normal NEGATIVE SEE COMMENT [facility] Comment on above: Performed By: #### C MP, LIPA #### [facility] [address] [address] [address] Toy Macario XR CHEST 1 Von [...] URIEL SPIVEY Date: 2022-03-13 15:46 Normal [facility] Progress Noteson 02-14-2022 [employer] Authentication Interface Message Text This encounter was opened in error. Patient was a No-Show. Please disregard. Called, directly to busy signal. Dennis Sarmiento MD Normal [facility] Progress Noteson 09-02-2021 [employer] Authentication Interface Message Text TUMOR BOARD NOTE [...] and Staging Information: SPECIMEN FOR SURGICAL PATH: [id number] Order: [id number] Collected 07/30/2021 15:54 ??? Status: Final result ??? Visible to patient: Yes (not seen) ??? Dx: Liver cyst; Cyst of gallbladder ??? 0 Result Notes ??? Component ??? Case Report Surgical Pathology Report ? Case: [id number] ? Authorizing Provider: ???Dennis Sarmiento MD ? [...] lymph nodes or masses grossly. ??? Sections: ???Spool Carrier ??? A1. ???Fibrotic tissue (X) ? B. [...] tumor, it is inked green. ??? Sections: ???Spool Carrier ??? B1. ???Cystic lesion, fibrotic area (X) [...] M.D ? Clinical Information ??? Resulting Agency [facility] [place] Specimen Collected: 07/30/21 15:54 Last Resulted: 08/05/21 08:46 ??? Order Details ??? View Encounter ??? Lab and Collection Details ??? Routing ??? Result History ? Scans on Order [id number] ??? Document on 08/05/2021 ???8:46 AM by Marc Ricketts, Treatment Recommendations and NCCN: Plan no surgical in (more content not included)... Normal [facility] Progress Noteson 08-24-2021 [employer] Authentication Interface Message Text Patient was identified by name and date of . Narda Mercedes Patient at risk for falls:No Falls Risk protocol implemented: No Normal [facility] Progress Noteson 08-16-2021 [employer] Authentication Interface Message Text Phone numbers Preferred Documentation: Mode: Telephone Patient Patient Work Phone: Patient Cell Preferred phone: [phone] Consent: I confirmed patient understanding of the risks and benefits of telehealth visits and obtained consent to proceed with the telehealth visit. Location of Patient: Home of patient Surgery Follow Up Feeling well since surgery. Still hurting but she is starting to feel better. [facility] week for staple removal. SPECIMEN FOR SURGICAL PATH: [id number] Order: [id number] Collected 07/30/2021 15:54 ??? Status: Final result ??? Visible to patient: Yes (not seen) ??? Dx: Liver cyst; Cyst of gallbladder ??? 0 Result Notes Component Case Report Surgical Pathology Report ? Case: [id number] ? Authorizing Provider: ???Dennis Sarmiento MD ? [...] lymph nodes or masses grossly. ??? Sections: Spool Carrier ??? A1. Fibrotic tissue (X) ? B. [...] tumor, it is inked green. ??? Sections: Spool Carrier ??? B1. Cystic lesion, fibrotic area (X) [...] Ivey M.D ? Clinical Information Resulting Agency [facility] Specimen Collected: 07/30/21 15:54 Last Resulted: 08/05/21 08:46 Order Details ??? View Encounter ??? Lab and Collection Details ??? Routing ??? Result History ??? Scans on Order [id number] Document on 08/05/2021 ???8:46 AM by Marc Ricketts MD ??? 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 Follow up in 6 months with a televisit in person if needed. Dennis Sarmiento MD, FA (more content not included)... Normal [facility] CYTOLOGY FLUIDOrdered By: Kerwin Ram on 08-04-2021 Appearance (U) [facility] Work Phone: Case Report Medical Cytology Report Case: [id number] Authorizing Provider: Dennis Sarmiento MD Collected: 07/30/2021 1619 Ordering Location: [facility] Main OR Received: 08/03/2021 0874 Pathologist: Ting Ram MD Specimen: Fluid, Cyst (Cytology), liver cyst fluid [facility] Work Phone: Cell Block q0oqoQArRQRtxFJ5NIOa XG Kxe1noe3PldLJcwJQkXJtk jERmxsHcpv76tHE6uC38YW 5jKHUuPoV3YYWqowQ6Zcu3 RDAkSYMexLWbH719f3vio4 galvIzvYF6hMqgWCKckuwr QpY5QZwwVRDzvlyaHDv1ZD hxEVDijNH7DTPawEFuS7Xh MOLxBG9icrb5VRA4LXncSR PyDhN6KPTkiSJdYJJxqNav JKqoh757KNA4AsXoVKLfon TifHhzvP8kSiOaHDXNuF2k ZCwgZmlicmluLCBncmFudW xhciBkZWJyaXMsIHJhcmUg kEKmpq1joCRxMMLhBWYeAN BkZWdlbmVyYXRlZCBpbmZs XG9pPABtnjroC0FesTNpOH Bhcn0= [facility] Work Phone: Clinical Information [facility] Work Phone: Color (U) [facility] Work Phone: Final Diagnosis t2mdtRSoLMJsc1ddDWEw bG FuZzEwMzNcZnRuYmpcdWMx IHtccnRmMVxlcGljOTkwMV liumZyAFRalLMwI0Lnjxqg UCisOB7kEI6nwCuuiMHnvP KgTOPwFfWfn0fnk864eQZc h8qeJONDriznyXy4xCdaY1 3bi6D6YkkwX15gcISvFKA4 HKAcCQOxkKNaMIEbEWC3LE DvtJRxO6dcVZPzWL7praog IPsyXKbyKWNreRI0TNShsB OjR2FmOZDyHGtpLMKukca6 PeSwWb7wjGDcjHehATkhZF JkXHBsYWluXGJcZnMyMCAi Cns9eVYjPFZ5x6CdIRR1vC 5cc0m2RPfdeBo7AFPcT1ll dCBmbHVpZCJccGFyXGIwXH PtnlYNINoikAh3RNUdd2Nz iFVhaFkoQV6olP9gcLWiKA Izy0HnzG21dgXyVGOtdDBz IGZldyBkZWdlbmVyYXRlZC LySWlwfrwsZY4yMQOhiuBc vWLxym7ssBKaMJYyADIuYE ZyXYMaolLqWYDgEBVynB9t ZNWbeRdngN2jHYTyv3rtH0 vqbvUng0C2AL1pgLKhQUIk tkVgY7VfIQOzsKqqPnqbA3 yseS81FRRyyhC8OWNbq75z QpWvMHZ7pFLoRJIvpT13UA xwYXJccGFyXHBhciBQcmlt EGZ2EWCfceTxcvHeMxUAOY B2f2JrKyXqfnPnISUHRWiY T9DAHJpaYPE9q2vomSKoER PatBUlIgMbDSOqVXXbs9rz ZGVmbGFuZzEwMzNcZnRuYm lgbCVyNKAzFeHwx8tzx429 lRQyj4lxLPZeVfA7zHUzIG BucCZxB948MPIhBNogg0df l8IfQFNxfTIxk1R6FSDPra bmjOz4eNvlD88me3F5Xtdh R6quNCAmKECvS9ApGL5pKD VuSjh5GCJ1QFD0QTGtHLp8 XCozBOUtRSAmTax6IJf6RM tccmVkMFxncmVlbjBcYmx1 MFDeL446IDG5zIpsd8clKQ M4ZINhPZHcXjRxKo2jjUVn M044CAClLYZIQDMumVx9BW NfmsKibsTgcMOKl135S158 s4jcLDUcdhIuxKlCyzoix4 szR274HYPpnFPrbrXoQsIq BTZkxWLobOT0HVNiMK6mvw cgVNlrCIkbSNPdxgR4FVLw uOWdC5MeVIDyFF4wtzmvKS Q3RMoiIUAoFAF9PdYpQDVv i7Saszp5WxTxgd5glx63HL T7b8JocQxhFZY3MNX8FoFd Xo9rrOPiWWGiUL0lGpCtkH MbUYUgbj48mNouUAlcqeDd fO2bRkSbBBSbyVGpWQFnPK 5tjLPeZWDotX4cjodwRXAb YnJkcmhlYWRccGdicmRyZm 0hyKvsBJE1RHeaJ4kklQ4y YvP2IUtvQ1uppI4uEWy3IP eltMJ6XWHdaE0dFG0iqedl w3gtKBvxGPqnFNJudqD8vo H8BVNnzQAeO2ZydE1fFDHw SB3jjdurh9xuDCU4XUvlNG BqFVR2PjRrDWAwz5Cfzac2 KgChg9KmnBEyZEusB60qg6 37ITShmgOuX8bzkOQuwxfj lMYzpvddAZvcymK8HKOvPH BsYWluXGYxXGZzMjJcbGFu ZzEwMzNcaGljaFxmMVxkYm OxFHVgESclR8bwMvXwDnPp AnysSYQwcTlsyJ5vSbEdTh MvEJspVC9cVBFrT3ntgDFn QVExXVPxV1krUpXhiZ4szX tiYOmhzmMmJTKeXJW1zd0u jZBwoXl5LMKwF32yCLANsB VzBvreWOk5HC9jIWOsgFXk BDHMDKLxkqBpGt3fHT1bBC IyLlxwYXJccGFyXHBsYWlu XGYxXGZzMThcbGFuZzEwMz NcaGljaFxmMVxkYmNoXGYx XVjdB1mvBeWjK0GsAGJaFW hcaSBJIGNlcnRpZnkgdGhh dCBJIHBlcnNvbmFsbHkgY2 9uZHVjdGVkIHRoZSBkaWFn pi5vcJamLGK5OEq0SBIif5 6fh6XkiRanNMRqr5XyYBAl ZWNpbWVuKHMpIGFuZCBoYX ZlIHJlbmRlcmVkIHRoZSBm vR2jrLCylKLllm5pmBAuNC YbGhNkeBedkJ4aUeAtAgQf SumrGH1lGHKnE9qxsVOlNQ GfGNZeG8muRiMhcI1cuYyw KXemufMdFXRupxgiKOD8nC == [facility] Work Phone: Gross Description t6kjrAKiQODxmUQ5SCIr XG Qzz1obf1UcwKEhvTDuMPdd qWSgorXune99xRZ6oK25DZ 2rNVIaUzB1BUNyfnL7Lqi7 VTXvAKHfvQOcA492f8hzw1 atlzNtmUF3nTpfYBEtmfxy JdI8CTwqBCEueugoAAy6RZ vkJMJwfXW0RJCbzDKgE5Rr XAAtYL1rnxd9ULW3PCyfGO DhJoP7ZGInsTOsOLTihQgv CVgzd549YCI3OiAmPWValo AzyBtfqM6pRwEjSZOaJWVz yQ7MpsTvQZAywOOxUJHoPK LsqxYfUvTTiWWcoE8mFVZs eGVkIGFuZCBzdGFpbmVkIH bbyKsfQPBkVB9aF35oXM79 HPB9SDijNzrzICUpD5ReqM HLvV8ksdRjzzZeXWLeFXSw s8LxOTxtqGevNOAgm89aUM GUQGuxYVCii2WiKG6ybEVb aWFsIGZpeGVkIGluIDEwJS ZkEAN0trTqGUL9SbNqdkFy WHVhkp0joImjICWtrcSmDB JqrM27liHzMVKeaq8= [facility] Work Phone: Volume 1 mL [facility] [...] Nom (Unsp spec) No organisms seen [facility] Basic metabolic 2000 panelon 08-03-2021 Anion gap [Moles/Vol] 14 mmol/L [facility] Calcium [Mass/Vol] 8.7 mg/dL 8.4 - 10. [...] Inclusion of Race in Diagnosing Kidney Disease. Citizen Of [place] Journal of Kidney Diseases 202;79(2):268-88.e1. 2. N Engl J Med 2020 Vol. 385 Issue 19 Pages 7142-1357 Glucose [Mass/Vol] 88 mg/dL 68 - 110 [...] [facility] RBC (Bld) [#/Vol] 2.97 10*6/uL Low [facility] WBC (Bld) [#/Vol] 6.5 10*3/uL 4.5 - 11.5 K/uL [facility] HEPATIC FUNCTION PANELon Albumin [Mass/Vol] 2.7 g/dL Low 3.4 - 5.1 g/dL [facility] ALP [Catalytic activity/Vol] 43 U/L [facility] ALT [Catalytic activity/Vol] 29 U/L [facility] AST [Catalytic activity/Vol] 26 U/L [facility] Bilirubin [Mass/Vol] 0.6 mg/dL 0.1 - 1 .5 mg/dL [facility] Bilirubin.direct [Mass/Vol] 0.20 mg/dL 0.10 - 0.30 mg/dL [facility] Interpretation and review of laboratory results Abnormal [facility] Protein [Mass/Vol] 4.5 g/dL Low 6.2 - 8.3 g/dL [facility] Laboratory - Blood bankon Major crossmatch [Interp] Compatible (E) [facility] Major crossmatch [Interp] Compatible (E) [facility] MAGNESIUMon 08-03-2021 Interpretation and review of laboratory results Normal [facility] Magnesium [Mass/Vol] 1.9 mg/dL 1.6 - 2 .8 mg/dL [facility] No Panel Informationon 08-03 [facility] Blood Product Code [id number] [facility] Blood Product Description FFP [facility] Blood Product Unit Type 7300 M [facility] Comment on above: B Pos Status Released to avail [facility] alth [facility] Blood Product Code [id number] [facility] Blood Product Description Red Blood Cells [facility] Blood Product Unit Type 7300 M [facility] Comment on above: B Pos Status Released to avail [facility] alth [facility] Blood Product Code [id number] [facility] Blood Product Description Red Blood Cells [facility] Blood Product Unit Type 7300 M [facility] Comment on above: B Pos Status Transfused [facility] PLASMA STATUSon 08-03-2021 Blood product unit Nom (BPU) [ID] [id number] [facility] Blood product unit Nom (BPU) [ID] [id number] [facility] RED BLOOD CELL UNIT STATUSon 08-03-2021 Blood product unit Nom (BPU) [ID] [id number] [facility] Blood product unit Nom (BPU) [ID] [id number] [facility] Blood product unit Nom (BPU) [ID] [id number] [facility] Blood product unit Nom (BPU) [ID] [id number] [facility] Basic metabolic 2000 panelon 08-02-2021 Anion gap [...] Inclusion of Race in Diagnosing Kidney Disease. Citizen Of [place] Journal of Kidney Diseases 2022;79(2):268-88.e1. 2. N Engl J Med 1 Vol. 385 Issue 19 Pages 6490-2633 Glucose [Mass/Vol] 85 mg/dL 68 - 110 mg/dL [facility] Interpretation and review of laboratory results Abnormal [facility] Potassium [Moles/Vol] 4.2 mmol/L 3.3 - 5.3 mmol/L [facility] Sodium [Moles/Vol] 138 mmol/L 135 - 148 mmol/L [facility] Urea nitrogen [Mass/Vol] 4 mg/dL Low 8 - 22 mg/dL [facility] CBC panel Auto (Bld)on 08-02 Erythrocyte distribution width (RBC) [Ratio] 15.5 % High 11.5 - 14.5 % [facility] Hematocrit (Bld) [Volume fraction] 24.0 % Low 36.0 - 46.0 % [facility] Hemoglobin (Bld) [Mass/Vol] 8.0 g/dL Low 12.0 - 15.0 g/dL [facility] Interpretation and review of laboratory results Abnormal [facility] MCH (RBC) [Entitic mass] 27.8 pg 26.0 - 34.0 pg [facility] MCHC (RBC) [Mass/Vol] 33.3 g/dL 32.0 - 35.9 g/dL [facility] MCV (RBC) [Entitic vol] 84 fL 80 - 100 fL [facility] Platelet mean volume (Bld) [Entitic vol] 7.4 fL Low 7.5 - 11.2 fL [facility] Platelets (Bld) [#/Vol] 186 10*3/uL 150 - 400 K/uL [facility] RBC (Bld) [#/Vol] 2.87 10*6/uL Low [facility] WBC (Bld) [#/Vol] 7.8 10*3/uL 4.5 - 11.5 K/uL [facility] CT ABDOMEN/PELVIS W/ CONTRAS TOrdered By: Mag Ordoñez on 08-02-2021 CT DLP 902.8 (mGy.cm) [facility] Work Phone: CT Series Abdomen [facility] Work Phone: CTDI VOL 16.5 (mGy) [facility] Work Phone: PHANTOM TYPE IEC Body Dosimetry Phantom [facility] Work Phone: [facility] Work Phone: CT ABDOMEN/PELVIS W/ CONTRAS Ton [...] contrast to assess anatomy Additional history per [facility] surgery note 07/30/2021: Status post laparoscopy [...] contrast to assess anatomy Additional history per [facility] surgery note 07/30/2021: Status post laparoscopy [...] 08-01-2021 Anion gap [Moles/Vol] 11 mmol/L [facility] Calcium [Mass/Vol] 8.1 mg/dL Low 8.4 - [...] Inclusion of Race in Diagnosing Kidney Disease. Citizen Of [place] Journal of Kidney Diseases 202;79(2):268-88.e1. 2. N Engl J Med 1 Vol. 385 Issue 19 Pages 5649-8291 Glucose [Mass/Vol] 101 mg/dL 68 - 110 [...] CONTRAS Ton 08-01-2021 Radiology Study observation (narrative) [facility] HEPATIC FUNCTION PANELon Albumin [Mass/Vol] 2.7 [...] 1.9 mg/dL 1.6 - 2 .8 mg/dL [facility] No Panel Informationon 08-01 [facility] PARTIAL THROMBOPLASTIN TIMEo n 08-01-2021 aPTT Coag (Bld) [Time] 29 s [facility] Interpretation and review of laboratory results Normal [facility] PROTHROMBIN TIME AND INRon 0 08-01-2021 INR Coag (PPP) [Relative time] 1.13 {INR} High [facility] Interpretation and review of laboratory results Abnormal [facility] PT Coag (PPP) [Time] 12.8 s Metr [facility] BLOOD GAS, ARTERIALOrdered B y: Feliciano Cutler on 07-31-2021 Base excess Calc (Bld) [Moles/Vol] -3.1000 mmol/L Low -2.0 - 2.0 mmol/L [facility] CO2 (Bld) [Partial pressure] 36.3 mm[Hg] [facility] Oxygen (Bld) [Partial pressure] 97 mm[Hg] [facility] pH (Bld) 7.382 [pH] [facility] Basic metabolic 2000 panelon 07-31-2021 Anion gap [Moles/Vol] 12 mmol/L [facility] Calcium [Mass/Vol] 8.9 mg/dL 8.4 - 10. [...] Inclusion of Race in Diagnosing Kidney Disease. Citizen Of [place] Journal of Kidney Diseases 202;79(2):268-88.e1. 2. N Engl J Med 2020 Vol. 385 Issue 19 Pages 0422-1138 Glucose [Mass/Vol] 129 mg/dL High 68 - 110 mg/dL [facility] Interpretation and review of laboratory results Abnormal [facility] Potassium [Moles/Vol] 4.6 mmol/L 3.3 - 5.3 mmol/L [facility] Sodium [Moles/Vol] 135 mmol/L 135 - 148 mmol/L [facility] Urea nitrogen [Mass/Vol] 10 mg/dL 8 - 22 mg/dL [facility] CALCIUM, IONIZEDon Calcium.ionized (Bld) [Moles/Vol] 1.21 mmol/L [...] [#/Vol] 9.5 10*3/uL 4.5 - 11.5 K/uL [facility] CO-OXIMETERon 07-31-2021 Carboxyhemoglobin (BldA) [Mass fraction] <0.7 <3.0 % [facility] Hematocrit (BldA) [Volume fraction] 30.6 % Low 36.0 - 46.0 % [facility] Hemoglobin (Bld) [Mass/Vol] 9.9 g/dL Low 12.0 - 16.0 g/dL [facility] Interpretation and review of laboratory results Abnormal [facility] Methemoglobin (BldA) [Mass fraction] 1.5 % <3.0 [facility] Oxyhemoglobin (BldA) [Mass fraction] 95.9 % 95.0 - 100.0 % [facility] ELECTROLYTESon 07-31-2021 Chloride [Moles/Vol] 107 mmol/L 97 - 11 1 mmol/L [facility] Potassium [Moles/Vol] 4.1 mmol/L 3.3 - 5.3 mmol/L [facility] Sodium [Moles/Vol] 138 mmol/L 135 - 148 mmol/L [facility] GLUCOSE, WHOLE BLOODon 07-31 Glucose [Mass/Vol] 147 [...] Order Item Product status info to follow [facility] GLUCOSE, WHOLE BLOODon 07-30 Glucose [Mass/Vol] 170 [...] 1.5 mmol/L 0.5 - 2. 0 mmol/L [facility] Laboratory - Blood bankon ABO and Rh group Nom (Bld) Blood group B Rh(D) positive [facility] - Chemistry and C hemistry - challengeon 07-30-2021 HCO3 (Bld) [Moles/Vol] 19 mmol/L Low 22 - 28 mmol/L [facility] HCO3 (Bld) [Moles/Vol] 21 mmol/L Low 22 - 28 mmol/L [facility] - Chemistry and C hemistry - challengeOrdered By: Melissa Moon on 07-30-2021 HCO3 (Bld) [Moles/Vol] 22 mmol/L 22 - 28 mmol/L [facility] No Panel Informationon 07-30 Interpretation and review of laboratory results Abnormal [facility] Interpretation and review of laboratory results Normal [facility] Interpretation and review of laboratory results Abnormal [facility] Interpretation and review of laboratory results Normal [facility] Interpretation and review of laboratory results Normal [facility] No Panel InformationOrdered By: Melissa Moon on 07-30-2021 Interpretation and review of laboratory results Abnormal [facility] RED BLOOD CELL COMPONENTon 0 07-30-2021 BB Order Item Product status info to follow [facility] BB Order Item Product status info to follow [facility] TRANSFUSE RED CELLSon 2021 [facility] TRANSFUSE RED CELLSOrdered B y: Adrian Bermudez on 07-30-2021 [facility] Work Phone: TYPE AND SCREENon 07-30-2021 Blood group antibody screen Ql Negative [facility] URINE HCG-IN OFFICEOrdered B y: Rachel Neville on 07-30-2021 HCG ( test) Ql (U) Negative Negative [facility] Interpretation and review of laboratory results Normal [facility] Negative Internal Control Negative Negative [facility] Positive Internal Control Positive Positive [facility] CBC panel Auto (Bld)on 07-15 Erythrocyte distribution width (RBC) [Ratio] 16.6 % High 11.5 - 14.5 % [facility] Hematocrit (Bld) [Volume fraction] 35.3 % Low 36.0 - 46.0 % [facility] Hemoglobin (Bld) [Mass/Vol] 11.7 g/dL Low 12.0 - 15.0 g/dL [facility] Interpretation and review of laboratory results Abnormal [facility] MCH (RBC) [Entitic mass] 28.1 pg 26.0 - 34.0 pg [facility] MCHC (RBC) [Mass/Vol] 33.2 g/dL 32.0 - [...] [facility] URINE HCG-IN OFFICEOrdered B y: Leyla Owenjai on 06-16-2021 HCG ( test) Ql (U) Negative Negative [facility] Interpretation and review of laboratory results Normal [facility] Negative Internal Control Negative Negative [facility] Positive Internal Control Positive Positive [facility] Covid-19 PCR (CVDTBH)on 06-04 SARS-CoV-2 (COVID-19) RNA PITO+probe Ql (Unsp spec) Not detected Normal NOT DETECTED [facility] Comment on above: Result Comment: This test is not yet approved or cleared by the [place] FDA. When there are no FDA-approved or cleared tests available, and other criteria are met, FDA can make tests available under an emergency access mechanism called an Emergency Use Authorization (EUA). The EUA for this test is supported by the [place] of Health and Human Service's (HHS's) declaration [...] consistent with SARS-CoV-2. Performed By: #### C VDTB #### [facility] [address] [place] [address] Dr. Toy Macario CBC AUTO DIFFon 04-22-2021 BASO # 0.1 103/ul Normal 0.0-0.1 [facility] Comment on above: Performed By: #### C BC #### [facility] [address] [place] [address] Dr. Toy Macario Basophils/100 WBC (Bld) 0.8 % Normal 0.2-2.[address] [facility] Comment on above: Performed By: #### C BC #### [facility] [address] [place] [address] Dr. Toy Macario EO # 0.2 103/ul Normal 0.0-0.7 [facility] Comment on above: Performed By: #### C BC #### [facility] [address] [place] [address] Dr. Toy Macario Eosinophils/100 WBC (Bld) 2.5 % Normal 0.9-7.0 [facility] Comment on above: Performed By: #### C BC #### [facility] [address] [place] [address] Dr. Toy Macario Erythrocyte distribution width (RBC) [Ratio] 14.3 % Normal 11.0-15.0 [facility] Comment on above: Performed By: #### C BC #### [facility] [address] [place] [address] Dr. Toy Macario Hematocrit (Bld) [Volume fraction] 26.9 % Critically low 36.0-48.0 [facility] Comment on above: Performed By: #### C BC #### [facility] [address] [place] [address] Dr. Toy Macario Hemoglobin (Bld) [Mass/Vol] 7.7 g/dL Critically low 12.0-16.0 [facility] Comment on above: Performed By: #### C BC #### [facility] [address] [address] [address] Toy Macario IG # 0.04 10e3/ul Critically high 0.00-0.03 [facility] Comment on above: Performed By: #### C BC #### [facility] [address] [place] [address] Dr. Toy Macario IG % 0.7 % Critically high 0.0-0.5 [facility] Comment on above: Performed By: #### C BC #### [facility] [address] [place] [address] Dr. Toy Macario LYMPH # 1.2 103/ul Normal 1.2-3.8 [facility] Comment on above: Performed By: #### C BC #### [facility] [address] [place] [address] Dr. Toy Macario Lymphocytes/100 WBC (Bld) 19.2 % Critically low 20.5-60.0 [facility] Comment on above: Performed By: #### C BC #### [facility] [address] [place] [address] Dr. Toy Macario MANUAL DIFF REQ NO Normal [facility] Comment on above: Performed By: #### C BC #### [facility] [address] [address] [address] Toy Macario MCH (RBC) [Entitic mass] 27.6 pg Normal 26.7-34.0 [facility] Comment on above: Performed By: #### C BC #### [facility] [address] [place] [address] Dr. Toy Macario MCHC (RBC) [Mass/Vol] 28.6 g/dL Critically low 29.9-35.2 [facility] Comment on above: Performed By: #### C BC #### [facility] [address] [place] [address] Dr. Toy Macario MCV (RBC) [Entitic vol] 96.4 fL Normal 81.0-99.[address] [facility] Comment on above: Performed By: #### C BC #### [facility] [address] [place] [address] Dr. Toy Macario MONO # 0.4 103/ul Normal 0.3-0.8 [facility] Comment on above: Performed By: #### C BC #### [facility] [address] [place] [address] Dr. Toy Macario Monocytes/100 WBC (Bld) 7.2 % Normal 1.7-12.[address] [facility] Comment on above: Performed By: #### C BC #### [facility] [address] [place] [address] Dr. Toy Macario NEUT # 4.3 103/ul Normal 1.4-6.5 [facility] Comment on above: Performed By: #### C BC #### [facility] [address] [place] [address] Dr. Toy Macario Neutrophils/100 WBC (Bld) 69.6 % Normal 43.0-75.0 [facility] Comment on above: Performed By: #### C BC #### [facility] [address] [place] [address] Dr. Toy Macario Platelet mean volume (Bld) [Entitic vol] 10.0 fL Normal 9.5-13.5 [facility] Comment on above: Performed By: #### C BC #### [facility] [address] [place] [address] Dr. Toy Macario PLT 238 103/ul Normal 150-450 [facility] Comment on above: Performed By: #### C BC #### [facility] [address] [place] [address] Dr. Toy Macario RBC 2.79 106/ul Critically low 4.20-5.40 [facility] Comment on above: Performed By: #### C BC #### [facility] [address] [address] [address] Toy Macario WBC 6.1 103/ul Normal 4.0-11.0 [facility] Comment on above: Performed By: #### C BC #### [facility] [address] [place] [address] Dr. Toy Macario LIPASEon 04-22-2021 Lipase [Catalytic activity/Vol] 712.0 U/L Critically high 23.0-300.0 [facility] Comment on above: Performed By: #### L IPA, CMP #### [facility] [address] [place] [address] Dr. Toy Macario MAGNESIUMon 04-22-2021 Magnesium [Mass/Vol] 2.6 mg/dL Critically high 1.6-2.3 [facility] Comment on above: Performed By: #### L IPA, CMP #### [facility] [address] [place] [address] Dr. Toy Macario PHOSPHORUSon 04-22-2021 Phosphate [Mass/Vol] 3.8 mg/dL Normal 2.5-4.5 [facility] Comment on above: Performed By: #### L IPA, CMP #### [facility] [address] [place] [address] Dr. Toy Macario POINT OF CARE GLUCOSEon 04-06 Glucose [Mass/Vol] 114 mg/dL Critically high 74-[address] [facility] Comment on above: Performed By: #### L IPA, CMP #### [facility] [address] [place] [address] Dr. Toy Macario Glucose [Mass/Vol] 123 mg/dL Critically high 74-[address] [facility] Comment on above: Performed By: #### L IPA, CMP #### [facility] [address] [place] [address] Dr. Toy Macario Glucose [Mass/Vol] 131 mg/dL Critically high 74-[address] [facility] Comment on above: Performed By: #### L IPA, CMP #### [facility] [address] [address] [address] Toy Macario PROF 14(COMP METB)on 022 Albumin [Mass/Vol] 1.9 g/dL Critically low 3.5-5.0 [facility] Comment on above: Performed By: #### L IPA, CMP #### [facility] [address] [address] [address] Toy Macario Albumin/Globulin [Mass ratio] 0.5 {ratio} Normal [facility] Comment on above: Performed By: #### L IPA, CMP #### [facility] [address] [address] [address] Toy Macario ALP [Catalytic activity/Vol] 60 U/L Normal 38-126 [facility] Comment on above: Performed By: #### L IPA, CMP #### [facility] [address] [place] [address] Dr. Toy Macario ALT [Catalytic activity/Vol] 14 U/L Normal 9-52 [facility] Comment on above: Performed By: #### L IPA, CMP #### [facility] [address] [place] [address] Dr. Toy Macario Anion gap [Moles/Vol] 12.7 mmol/L Normal [facility] Comment on above: Performed By: #### L IPA, CMP #### [facility] [address] [place] [address] Dr. Toy Macario AST [Catalytic activity/Vol] 13 U/L Critically low 14-36 [facility] Comment on above: Performed By: #### L IPA, CMP #### [facility] [address] [address] [address] Toy Macario Bilirubin [Mass/Vol] 0.3 mg/dL Normal 0.2-1.3 [facility] Comment on above: Performed By: #### L IPA, CMP #### [facility] [address] [address] [address] Toy Macario Calcium [Mass/Vol] 8.6 mg/dL Normal 8.4-10.2 [facility] Comment on above: Performed By: #### L IPA, CMP #### [facility] [address] [address] [address] Toy Macario Chloride [Moles/Vol] 106 mmol/L Normal 98-107 [facility] Comment on above: Performed By: #### L IPA, CMP #### [facility] [address] [address] [address] Toy Macario CO2 [Moles/Vol] 26.9 mmol/L Normal 22.0-30.0 [facility] Comment on above: Performed By: #### L IPA, CMP #### [facility] [address] [address] [address] Toy Macario Creatinine [Mass/Vol] 0.59 mg/dL Normal 0.52-1.04 [facility] Comment on above: Performed By: #### L IPA, CMP #### [facility] [address] [place] [address] Dr. Toy Macario EGFR-AF FIJIAN >60 Normal >=60 [facility] Comment on above: Performed By: #### L IPA, CMP #### [facility] [address] [place] [address] Dr. Toy Macario EGFR-NON AF FIJIAN >60 Normal >=60 [facility] Comment on above: Performed By: #### L IPA, CMP #### [facility] [address] [place] [address] Dr. Toy Macario Globulin (S) [Mass/Vol] 4.0 g/dL Normal [facility] Comment on above: Performed By: #### L IPA, CMP #### [facility] [address] [place] [address] Dr. Toy Macario Glucose [Mass/Vol] 109 mg/dL Critically high 74-[address] [facility] Comment on above: Performed By: #### L IPA, CMP #### [facility] [address] [place] [address] Dr. Toy Macario Potassium [Moles/Vol] 3.6 mmol/L Normal 3.4-5.0 [facility] Comment on above: Performed By: #### L IPA, CMP #### [facility] [address] [address] [address] Toy Macario Protein [Mass/Vol] 5.9 g/dL Critically low 6.1-8.2 [facility] Comment on above: Performed By: #### L IPA, CMP #### [facility] [address] [address] [address] Toy Macario Sodium [Moles/Vol] 142 mmol/L Normal 137-145 [facility] Comment on above: Performed By: #### L IPA, CMP #### [facility] [address] [address] [address] Toy Macario Urea nitrogen [Mass/Vol] 9.0 mg/dL Normal 7.0-17.0 [facility] Comment on above: Performed By: #### L IPA, CMP #### [facility] [address] [place] [address] Dr. Toy Macario Urea nitrogen/Creatinine [Mass ratio] 15.3 mg/mg Normal [facility] Comment on above: Performed By: #### L IPA, CMP #### [facility] [address] [place] [address] Dr. Toy Macario TRIGLYCERIDEon 04-22-2021 Triglyceride [Mass/Vol] 84 mg/dL Normal <=[address] [facility] Comment on above: Performed By: #### L IPA, CMP #### [facility] [address] [place] [address] Dr. Toy Macario CBC AUTO DIFFon 04-21-2021 BASO # 0.1 103/ul Normal 0.0-0.1 [facility] Comment on above: Performed By: #### C VDTBH #### [facility] [address] [address] [address] Toy Macario Basophils/100 WBC (Bld) 0.7 % Normal 0.2-2.[address] [facility] Comment on above: Performed By: #### C VDTBH #### [facility] [address] [place] [address] Dr. Toy Macario EO # 0.1 103/ul Normal 0.0-0.7 [facility] Comment on above: Performed By: #### C VDTBH #### [facility] [address] [place] [address] Dr. Toy Macario Eosinophils/100 WBC (Bld) 1.5 % Normal 0.9-7.0 [facility] Comment on above: Performed By: #### C VDTBH #### [facility] [address] [place] [address] Dr. Toy Macario Erythrocyte distribution width (RBC) [Ratio] 13.8 % Normal 11.0-15.0 [facility] Comment on above: Performed By: #### C VDTBH #### [facility] [address] [place] [address] Dr. Toy Macario Hematocrit (Bld) [Volume fraction] 26.3 % Critically low 36.0-48.0 [facility] Comment on above: Performed By: #### C VDTBH #### [facility] [address] [place] [address] Dr. Toy Macario Hemoglobin (Bld) [Mass/Vol] 8.2 g/dL Critically low 12.0-16.0 [facility] Comment on above: Performed By: #### C VDTBH #### [facility] [address] [place] [address] Dr. Toy Macario IG # 0.13 10e3/ul Critically high 0.00-0.03 [facility] Comment on above: Performed By: #### C VDTBH #### [facility] [address] [place] [address] Dr. Toy Macario IG % 1.8 % Critically high 0.0-0.5 [facility] Comment on above: Performed By: #### C VDTBH #### [facility] [address] [place] [address] Dr. Toy Macario LYMPH # 1.3 103/ul Normal 1.2-3.8 [facility] Comment on above: Performed By: #### C VDTBH #### [facility] [address] [place] [address] Dr. Tyo Macario Lymphocytes/100 WBC (Bld) 18.6 % Critically low 20.5-60.0 [facility] Comment on above: Performed By: #### C VDTBH #### [facility] [address] [place] [address] Dr. Toy Macario MANUAL DIFF REQ NO Normal [facility] Comment on above: Performed By: #### C VDTBH #### [facility] [address] [place] [address] Dr. Toy Macario MCH (RBC) [Entitic mass] 27.7 pg Normal 26.7-34.0 [facility] Comment on above: Performed By: #### C VDTBH #### [facility] [address] [place] [address] Dr. Toy Macario MCHC (RBC) [Mass/Vol] 31.2 g/dL Normal 29.9-35.2 [facility] Comment on above: Performed By: #### C VDTBH #### [facility] [address] [place] [address] Dr. Toy Macario MCV (RBC) [Entitic vol] 88.9 fL Normal 81.0-99.[address] [facility] Comment on above: Performed By: #### C VDTBH #### [facility] [address] [place] [address] Dr. Toy Macario MONO # 0.4 103/ul Normal 0.3-0.8 [facility] Comment on above: Performed By: #### C VDTBH #### [facility] [address] [place] [address] Dr. Toy Macario Monocytes/100 WBC (Bld) 6.0 % Normal 1.7-12.[address] [facility] Comment on above: Performed By: #### C VDTBH #### [facility] [address] [place] [address] Dr. Toy Macario NEUT # 5.2 103/ul Normal 1.4-6.5 [facility] Comment on above: Performed By: #### C VDTBH #### [facility] [address] [place] [address] Dr. Toy Macario Neutrophils/100 WBC (Bld) 71.4 % Normal 43.0-75.0 [facility] Comment on above: Performed By: #### C VDTBH #### [facility] [address] [place] [address] Dr. Toy Macario Platelet mean volume (Bld) [Entitic vol] 9.9 fL Normal 9.5-13.5 [facility] Comment on above: Performed By: #### C VDTBH #### [facility] [address] [place] [address] Dr. Toy Macario PLT 245 103/ul Normal 150-450 [facility] Comment on above: Performed By: #### C VDTBH #### [facility] [address] [place] [address] Dr. Toy Macario RBC 2.96 106/ul Critically low 4.20-5.40 [facility] Comment on above: Performed By: #### C VDTBH #### [facility] [address] [place] [address] Dr. Toy Macario WBC 7.2 103/ul Normal 4.0-11.0 [facility] Comment on above: Performed By: #### C VDTBH #### [facility] [address] [place] [address] Dr. Toy Macario LIPASEon 04-21-2021 Lipase [Catalytic activity/Vol] 645.0 U/L Critically high 23.0-300.0 [facility] Comment on above: Performed By: #### O DEVENDRA #### [facility] [address] [place] [address] Dr. Toy Macario MAGNESIUMon 04-21-2021 Magnesium [Mass/Vol] 2.0 mg/dL Normal 1.6-2.3 [facility] Comment on above: Performed By: #### O DEVENDRA #### [facility] [address] [place] [address] Dr. Toy Macario PHOSPHORUSon 04-21-2021 Phosphate [Mass/Vol] 3.6 mg/dL Normal 2.5-4.5 [facility] Comment on above: Performed By: #### O DEVENDRA #### [facility] [address] [place] [address] Dr. Toy Macario POTASSIUMon 04-21-2021 Potassium [Moles/Vol] 3.5 mmol/L Normal 3.4-5.0 [facility] Comment on above: Performed By: #### K #### [facility] [address] [place] [address] Dr. Toy Macario PROF 14(COMP METB)on 022 Albumin [Mass/Vol] 1.8 g/dL Critically low 3.5-5.0 [facility] Comment on above: Performed By: #### O DEVENDRA #### [facility] [address] [place] [address] Dr. Toy Macario Albumin/Globulin [Mass ratio] 0.4 {ratio} Normal [facility] Comment on above: Performed By: #### O DEVENDRA #### [facility] [address] [place] [address] Dr. Toy Macario ALP [Catalytic activity/Vol] 65 U/L Normal 38-126 [facility] Comment on above: Performed By: #### O DEVENDRA #### [facility] [address] [place] [address] Dr. Toy Macario ALT [Catalytic activity/Vol] 13 U/L Normal 9-52 [facility] Comment on above: Performed By: #### O DEVENDRA #### [facility] [address] [place] [address] Dr. Toy Macario Anion gap [Moles/Vol] 8.2 mmol/L Normal [facility] Comment on above: Performed By: #### O DEVENDRA #### [facility] [address] [place] [address] Dr. Toy Macario AST [Catalytic activity/Vol] 14 U/L Normal 14-36 [facility] Comment on above: Performed By: #### O DEVENDRA #### [facility] [address] [place] [address] Dr. Toy Macario Bilirubin [Mass/Vol] 0.3 mg/dL Normal 0.2-1.3 [facility] Comment on above: Performed By: #### O DEVENDRA #### [facility] [address] [place] [address] Dr. Toy Macario Calcium [Mass/Vol] 8.3 mg/dL Critically low 8.4-10.2 [facility] Comment on above: Performed By: #### O DEVENDRA #### [facility] [address] [place] [address] Dr. Toy Macario Chloride [Moles/Vol] 106 mmol/L Normal 98-107 [facility] Comment on above: Performed By: #### O DEVENDRA #### [facility] [address] [place] [address] Dr. Toy Macario CO2 [Moles/Vol] 27.7 mmol/L Normal 22.0-30.0 [facility] Comment on above: Performed By: #### O DEVENDRA #### [facility] [address] [place] [address] Dr. Toy Macario Creatinine [Mass/Vol] 0.59 mg/dL Normal 0.52-1.04 [facility] Comment on above: Performed By: #### O DEVENDRA #### [facility] [address] [place] [address] Dr. Toy Macario EGFR-AF FIJIAN >60 Normal >=60 [facility] Comment on above: Performed By: #### O DEVENDRA #### [facility] [address] [place] [address] Dr. Toy Macario EGFR-NON AF FIJIAN >60 Normal >=60 [facility] Comment on above: Performed By: #### O DEVENDRA #### [facility] [address] [place] [address] Dr. Toy Macario Globulin (S) [Mass/Vol] 4.3 g/dL Normal [facility] Comment on above: Performed By: #### O DEVENDRA #### [facility] [address] [place] [address] Dr. Toy aMcario Glucose [Mass/Vol] 117 mg/dL Critically high 74-[address] [facility] Comment on above: Performed By: #### O DEVENDRA #### [facility] [address] [address] [address] Toy Macario Potassium [Moles/Vol] 2.9 mmol/L Critically low 3.4-5.0 [facility] Comment on above: Result Comment: Test Repeated. Criticall Value Verified Performed By: #### O DEVENDRA #### [facility] [address] [address] [address] Toy Macario Protein [Mass/Vol] 6.1 g/dL Normal 6.1-8.2 [facility] Comment on above: Performed By: #### O DEVENDRA #### [facility] [address] [place] [address] Dr. Toy Macario Sodium [Moles/Vol] 139 mmol/L Normal 137-145 [facility] Comment on above: Performed By: #### O DEVENDRA #### [facility] [address] [place] [address] Dr. Toy Macario Urea nitrogen [Mass/Vol] 7.0 mg/dL Normal 7.0-17.0 [facility] Comment on above: Performed By: #### O DEVENDRA #### [facility] [address] [place] [address] Dr. Toy Macario Urea nitrogen/Creatinine [Mass ratio] 11.9 mg/mg Normal [facility] Comment on above: Performed By: #### O DEVENDRA #### [facility] [address] [place] [address] Dr. Toy Macario TRIGLYCERIDEon 04-21-2021 Triglyceride [Mass/Vol] 182 mg/dL Critically high <=150 [facility] Comment on above: Performed By: #### L IPA, CMP #### [facility] [address] [place] [address] Dr. Toy Macario CBC AUTO DIFFon 04-20-2021 BASO # 0.0 103/ul Normal 0.0-0.1 [facility] Comment on above: Performed By: #### C BC #### [facility] [address] [place] [address] Dr. Toy Macario Basophils/100 WBC (Bld) 0.3 % Normal 0.2-2.[address] [facility] Comment on above: Performed By: #### C BC #### [facility] [address] [place] [address] Dr. Toy Macario EO # 0.1 103/ul Normal 0.0-0.7 [facility] Comment on above: Performed By: #### C BC #### [facility] [address] [place] [address] Dr. Toy Macario Eosinophils/100 WBC (Bld) 1.2 % Normal 0.9-7.0 [facility] Comment on above: Performed By: #### C BC #### [facility] [address] [place] [address] Dr. Toy Macario Erythrocyte distribution width (RBC) [Ratio] 13.9 % Normal 11.0-15.0 [facility] Comment on above: Performed By: #### C BC #### [facility] [address] [place] [address] Dr. Toy Macario Hematocrit (Bld) [Volume fraction] 26.4 % Critically low 36.0-48.0 [facility] Comment on above: Performed By: #### C BC #### [facility] [address] [place] [address] Dr. Toy Macario Hemoglobin (Bld) [Mass/Vol] 8.3 g/dL Critically low 12.0-16.0 [facility] Comment on above: Performed By: #### C BC #### [facility] [address] [place] [address] Dr. Toy Macario IG # 0.03 10e3/ul Normal 0.00-0.03 [facility] Comment on above: Performed By: #### C BC #### [facility] [address] [place] [address] Dr. Toy Macario IG % 0.5 % Normal 0.0-0.5 [facility] Comment on above: Performed By: #### C BC #### [facility] [address] [place] [address] Dr. Toy Macario LYMPH # 1.1 103/ul Critically low 1.2-3.[address] [facility] Comment on above: Performed By: #### C BC #### [facility] [address] [place] [address] Dr. Toy Macario Lymphocytes/100 WBC (Bld) 18.3 % Critically low 20.5-60.0 [facility] Comment on above: Performed By: #### C BC #### [facility] [address] [place] [address] Dr. Toy Macario MANUAL DIFF REQ NO Normal [facility] Comment on above: Performed By: #### C BC #### [facility] [address] [place] [address] Dr. Toy Macario MCH (RBC) [Entitic mass] 27.7 pg Normal 26.7-34.0 [facility] Comment on above: Performed By: #### C BC #### [facility] [address] [place] [address] Dr. Toy Macario MCHC (RBC) [Mass/Vol] 31.4 g/dL Normal 29.9-35.2 [facility] Comment on above: Performed By: #### C BC #### [facility] [address] [place] [address] Dr. Toy Macario MCV (RBC) [Entitic vol] 88.0 fL Normal 81.0-99.[address] [facility] Comment on above: Performed By: #### C BC #### [facility] [address] [place] [address] Dr. Tyo Macario MONO # 0.4 103/ul Normal 0.3-0.8 [facility] Comment on above: Performed By: #### C BC #### [facility] [address] [place] [address] Dr. Toy Macario Monocytes/100 WBC (Bld) 6.3 % Normal 1.7-12.[address] [facility] Comment on above: Performed By: #### C BC #### [facility] [address] [place] [address] Dr. Toy Macario NEUT # 4.3 103/ul Normal 1.4-6.5 [facility] Comment on above: Performed By: #### C BC #### [facility] [address] [address] [address] Toy Macario Neutrophils/100 WBC (Bld) 73.4 % Normal 43.0-75.0 [facility] Comment on above: Performed By: #### C BC #### [facility] [address] [address] [address] Toy Macario Platelet mean volume (Bld) [Entitic vol] 9.3 fL Critically low 9.5-13.5 [facility] Comment on above: Performed By: #### C BC #### [facility] [address] [address] [address] Toy Macario PLT 242 103/ul Normal 150-450 [facility] Comment on above: Performed By: #### C BC #### [facility] [address] [place] [address] Dr. Toy Macario RBC 3.00 106/ul Critically low 4.20-5.40 [facility] Comment on above: Performed By: #### C BC #### [facility] [address] [address] [address] Toy Macario WBC 5.8 103/ul Normal 4.0-11.0 [facility] Comment on above: Performed By: #### C BC #### [facility] [address] [place] [address] Dr. Toy Macario LIPASEon 04-20-2021 Lipase [Catalytic activity/Vol] 519.0 U/L Critically high 23.0-300.0 [facility] Comment on above: Performed By: #### L IPA, CMP #### [facility] [address] [address] [address] Toy Macario POINT OF CARE GLUCOSEon 04-06 Glucose [Mass/Vol] 104 mg/dL Normal 74-106 [facility] Comment on above: Performed By: #### C VDTBH #### [facility] [address] [address] [address] Toy Macario Glucose [Mass/Vol] 105 mg/dL Normal 74-106 [facility] Comment on above: Performed By: #### L IPA, CMP #### [facility] [address] [place] [address] Dr. Toy Macario Glucose [Mass/Vol] 109 mg/dL Critically high 74-[address] [facility] Comment on above: Performed By: #### O DEVENDRA #### [facility] [address] [place] [address] Dr. Toy Macario PROF 14(COMP METB)on 022 Albumin [Mass/Vol] 1.8 g/dL Critically low 3.5-5.0 [facility] Comment on above: Performed By: #### L IPA, CMP #### [facility] [address] [place] [address] Dr. Toy Macario Albumin/Globulin [Mass ratio] 0.4 {ratio} Normal [facility] Comment on above: Performed By: #### L IPA, CMP #### [facility] [address] [place] [address] Dr. Toy Macario ALP [Catalytic activity/Vol] 67 U/L Normal 38-126 [facility] Comment on above: Performed By: #### L IPA, CMP #### [facility] [address] [place] [address] Dr. Toy Macario ALT [Catalytic activity/Vol] 17 U/L Normal 9-52 [facility] Comment on above: Performed By: #### L IPA, CMP #### [facility] [address] [place] [address] Dr. Toy Macario Anion gap [Moles/Vol] 8.9 mmol/L Normal [facility] Comment on above: Performed By: #### L IPA, CMP #### [facility] [address] [place] [address] Dr. Toy Macario AST [Catalytic activity/Vol] 15 U/L Normal 14-36 [facility] Comment on above: Performed By: #### L IPA, CMP #### [facility] [address] [place] [address] Dr. Toy Macario Bilirubin [Mass/Vol] 0.3 mg/dL Normal 0.2-1.3 [facility] Comment on above: Performed By: #### L IPA, CMP #### [facility] [address] [place] [address] Dr. Toy Macario Calcium [Mass/Vol] 8.8 mg/dL Normal 8.4-10.2 [facility] Comment on above: Performed By: #### L IPA, CMP #### [facility] [address] [place] [address] Dr. Toy Macario Chloride [Moles/Vol] 105 mmol/L Normal 98-107 [facility] Comment on above: Performed By: #### L IPA, CMP #### [facility] [address] [place] [address] Dr. Toy Macario CO2 [Moles/Vol] 27.3 mmol/L Normal 22.0-30.0 [facility] Comment on above: Performed By: #### L IPA, CMP #### [facility] [address] [place] [address] Dr. Toy Macario Creatinine [Mass/Vol] 0.56 mg/dL Normal 0.52-1.04 [facility] Comment on above: Performed By: #### L IPA, CMP #### [facility] [address] [place] [address] Dr. Toy Macario EGFR-AF FIJIAN >60 Normal >=60 [facility] Comment on above: Performed By: #### L IPA, CMP #### [facility] [address] [place] [address] Dr. Toy Macario EGFR-NON AF FIJIAN >60 Normal >=60 [facility] Comment on above: Performed By: #### L IPA, CMP #### [facility] [address] [place] [address] Dr. Toy Macario Globulin (S) [Mass/Vol] 4.5 g/dL Normal [facility] Comment on above: Performed By: #### L IPA, CMP #### [facility] [address] [place] [address] Dr. Toy Macario Glucose [Mass/Vol] 103 mg/dL Normal 74-106 [facility] Comment on above: Performed By: #### L IPA, CMP #### [facility] [address] [place] [address] Dr. Toy Macario Potassium [Moles/Vol] 3.2 mmol/L Critically low 3.4-5.0 [facility] Comment on above: Performed By: #### L IPA, CMP #### [facility] [address] [place] [address] Dr. Toy Macario Protein [Mass/Vol] 6.3 g/dL Normal 6.1-8.2 [facility] Comment on above: Performed By: #### L IPA, CMP #### [facility] [address] [place] [address] Dr. Toy Macario Sodium [Moles/Vol] 138 mmol/L Normal 137-145 [facility] Comment on above: Performed By: #### L IPA, CMP #### [facility] [address] [place] [address] Dr. Toy Macario Urea nitrogen [Mass/Vol] 7.0 mg/dL Normal 7.0-17.0 [facility] Comment on above: Performed By: #### L IPA, CMP #### [facility] [address] [place] [address] Dr. Toy Macario Urea nitrogen/Creatinine [Mass ratio] 12.5 mg/mg Normal [facility] Comment on above: Performed By: #### L IPA, CMP #### [facility] [address] [place] [address] Dr. Toy Macario CBC AUTO DIFFon 04-19-2021 BASO # 0.0 103/ul Normal 0.0-0.1 [facility] Comment on above: Performed By: #### C MP, LIPA #### [facility] [address] [place] [address] Dr. Toy Macario Basophils/100 WBC (Bld) 0.8 % Normal 0.2-2.[address] [facility] Comment on above: Performed By: #### C MP, LIPA #### [facility] [address] [place] [address] Dr. Toy Macario EO # 0.1 103/ul Normal 0.0-0.7 [facility] Comment on above: Performed By: #### C MP, LIPA #### [facility] [address] [place] [address] Dr. Toy Macario Eosinophils/100 WBC (Bld) 1.9 % Normal 0.9-7.0 [facility] Comment on above: Performed By: #### C MP, LIPA #### [facility] [address] [place] [address] Dr. Toy Macario Erythrocyte distribution width (RBC) [Ratio] 14.0 % Normal 11.0-15.0 [facility] Comment on above: Performed By: #### C MP, LIPA #### [facility] [address] [place] [address] Dr. Toy Macario Hematocrit (Bld) [Volume fraction] 27.6 % Critically low 36.0-48.0 [facility] Comment on above: Performed By: #### C MP, LIPA #### [facility] [address] [place] [address] Dr. Toy Macario Hemoglobin (Bld) [Mass/Vol] 8.5 g/dL Critically low 12.0-16.0 [facility] Comment on above: Performed By: #### C MP, LIPA #### [facility] [address] [place] [address] Dr. Toy Macario IG # 0.03 10e3/ul Normal 0.00-0.03 [facility] Comment on above: Performed By: #### C MP, LIPA #### [facility] [address] [place] [address] Dr. Toy Macario IG % 0.6 % Critically high 0.0-0.5 [facility] Comment on above: Performed By: #### C MP, LIPA #### [facility] [address] [place] [address] Dr. Toy Macario LYMPH # 1.0 103/ul Critically low 1.2-3.8 [facility] Comment on above: Performed By: #### C MP, LIPA #### [facility] [address] [place] [address] Dr. Toy Macario Lymphocytes/100 WBC (Bld) 17.9 % Critically low 20.5-60.0 [facility] Comment on above: Performed By: #### C MP, LIPA #### [facility] [address] [place] [address] Dr. Toy Macario MANUAL DIFF REQ NO Normal [facility] Comment on above: Performed By: #### C MP, LIPA #### [facility] [address] [place] [address] Dr. Toy Macario MCH (RBC) [Entitic mass] 27.4 pg Normal 26.7-34.0 [facility] Comment on above: Performed By: #### C MP, LIPA #### [facility] [address] [place] [address] Dr. Toy Macario MCHC (RBC) [Mass/Vol] 30.8 g/dL Normal 29.9-35.2 [facility] Comment on above: Performed By: #### C MP, LIPA #### [facility] [address] [place] [address] Dr. Toy Macario MCV (RBC) [Entitic vol] 89.0 fL Normal 81.0-99.[address] [facility] Comment on above: Performed By: #### C MP, LIPA #### [facility] [address] [place] [address] Dr. Toy Macario MONO # 0.4 103/ul Normal 0.3-0.8 [facility] Comment on above: Performed By: #### C MP, LIPA #### [facility] [address] [place] [address] Dr. Toy Macario Monocytes/100 WBC (Bld) 7.7 % Normal 1.7-12.[address] [facility] Comment on above: Performed By: #### C MP, LIPA #### [facility] [address] [place] [address] Dr. Toy Macario NEUT # 3.8 103/ul Normal 1.4-6.5 [facility] Comment on above: Performed By: #### C MP, LIPA #### [facility] [address] [place] [address] Dr. Toy Macario Neutrophils/100 WBC (Bld) 71.1 % Normal 43.0-75.0 [facility] Comment on above: Performed By: #### C MP, LIPA #### [facility] [address] [place] [address] Dr. Toy Macario Platelet mean volume (Bld) [Entitic vol] 9.4 fL Critically low 9.5-13.5 [facility] Comment on above: Performed By: #### C MP, LIPA #### [facility] [address] [place] [address] Dr. Toy Macario PLT 259 103/ul Normal 150-450 [facility] Comment on above: Performed By: #### C MP, LIPA #### [facility] [address] [place] [address] Dr. Toy Macario RBC 3.10 106/ul Critically low 4.20-5.40 [facility] Comment on above: Performed By: #### C MP, LIPA #### [facility] [address] [place] [address] Dr. Toy Macario WBC 5.3 103/ul Normal 4.0-11.0 [facility] Comment on above: Performed By: #### C MP, LIPA #### [facility] [address] [place] [address] Dr. Toy Macario LIPASEon 04-19-2021 Lipase [Catalytic activity/Vol] 447.0 U/L Critically high 23.0-300.0 [facility] Comment on above: Performed By: #### C MP, LIPA #### [facility] [address] [place] [address] Dr. Toy Macario POINT OF CARE GLUCOSEon 04-06 Glucose [Mass/Vol] 107 mg/dL Critically high 74-[address] [facility] Comment on above: Performed By: #### L IPA, CMP #### [facility] [address] [address] [address] Toy Macario PROF 14(COMP METB)on 022 Albumin [Mass/Vol] 1.8 g/dL Critically low 3.5-5.0 [facility] Comment on above: Performed By: #### C MP, LIPA #### [facility] [address] [address] [address] Toy Macario Albumin/Globulin [Mass ratio] 0.4 {ratio} Normal [facility] Comment on above: Performed By: #### C MP, LIPA #### [facility] [address] [address] [address] Toy Macario ALP [Catalytic activity/Vol] 81 U/L Normal 38-126 [facility] Comment on above: Performed By: #### C MP, LIPA #### [facility] [address] [place] [address] Dr. Toy Macario ALT [Catalytic activity/Vol] 27 U/L Normal 9-52 [facility] Comment on above: Performed By: #### C MP, LIPA #### [facility] [address] [place] [address] Dr. Toy Macario Anion gap [Moles/Vol] 9.3 mmol/L Normal [facility] Comment on above: Performed By: #### C MP, LIPA #### [facility] [address] [place] [address] Dr. Toy Macario AST [Catalytic activity/Vol] 21 U/L Normal 14-36 [facility] Comment on above: Performed By: #### C MP, LIPA #### [facility] [address] [place] [address] Dr. Toy Macario Bilirubin [Mass/Vol] 0.3 mg/dL Normal 0.2-1.3 [facility] Comment on above: Performed By: #### C MP, LIPA #### [facility] [address] [address] [address] Toy Macario Calcium [Mass/Vol] 9.0 mg/dL Normal 8.4-10.2 [facility] Comment on above: Performed By: #### C MP, LIPA #### [facility] [address] [address] [address] Toy Macario Chloride [Moles/Vol] 105 mmol/L Normal 98-107 [facility] Comment on above: Performed By: #### C MP, LIPA #### [facility] [address] [address] [address] Toy Macario CO2 [Moles/Vol] 27.9 mmol/L Normal 22.0-30.0 [facility] Comment on above: Performed By: #### C MP, LIPA #### [facility] [address] [address] [address] Toy Macario Creatinine [Mass/Vol] 0.61 mg/dL Normal 0.52-1.04 [facility] Comment on above: Performed By: #### C MP, LIPA #### [facility] [address] [place] [address] Dr. Toy Macario EGFR-AF FIJIAN >60 Normal >=60 [facility] Comment on above: Performed By: #### C MP, LIPA #### [facility] [address] [place] [address] Dr. Toy Macario EGFR-NON AF FIJIAN >60 Normal >=60 [facility] Comment on above: Performed By: #### C MP, LIPA #### [facility] [address] [address] [address] Toy Macario Globulin (S) [Mass/Vol] 4.8 g/dL Normal [facility] Comment on above: Performed By: #### C MP, LIPA #### [facility] [address] [address] [address] Toy Macario Glucose [Mass/Vol] 107 mg/dL Critically high 74-[address] [facility] Comment on above: Performed By: #### C MP, LIPA #### [facility] [address] [place] [address] Dr. Toy Macario Potassium [Moles/Vol] 3.2 mmol/L Critically low 3.4-5.0 [facility] Comment on above: Performed By: #### C MP, LIPA #### [facility] [address] [place] [address] Dr. Toy Macario Protein [Mass/Vol] 6.6 g/dL Normal 6.1-8.2 [facility] Comment on above: Performed By: #### C MP, LIPA #### [facility] [address] [place] [address] Dr. Toy Macario Sodium [Moles/Vol] 139 mmol/L Normal 137-145 [facility] Comment on above: Performed By: #### C MP, LIPA #### [facility] [address] [place] [address] Dr. Toy Macario Urea nitrogen [Mass/Vol] 6.0 mg/dL Critically low 7.0-17.0 [facility] Comment on above: Performed By: #### C MP, LIPA #### [facility] [address] [place] [address] Dr. Toy Macario Urea nitrogen/Creatinine [Mass ratio] 9.8 mg/mg Normal [facility] Comment on above: Performed By: #### C MP, LIPA #### [facility] [address] [place] [address] Dr. Toy Macario CBC AUTO DIFFon 04-18-2021 BASO # 0.0 103/ul Normal 0.0-0.1 [facility] Comment on above: Performed By: #### L IPA, CMP #### [facility] [address] [place] [address] Dr. Toy Macario Basophils/100 WBC (Bld) 0.6 % Normal 0.2-2.[address] [facility] Comment on above: Performed By: #### L IPA, CMP #### [facility] [address] [place] [address] Dr. Toy Macario EO # 0.1 103/ul Normal 0.0-0.7 [facility] Comment on above: Performed By: #### L IPA, CMP #### [facility] [address] [place] [address] Dr. Toy Macario Eosinophils/100 WBC (Bld) 1.8 % Normal 0.9-7.0 [facility] Comment on above: Performed By: #### L IPA, CMP #### [facility] [address] [place] [address] Dr. Toy Macario Erythrocyte distribution width (RBC) [Ratio] 14.0 % Normal 11.0-15.0 [facility] Comment on above: Performed By: #### L IPA, CMP #### [facility] [address] [place] [address] Dr. Toy Macario Hematocrit (Bld) [Volume fraction] 27.9 % Critically low 36.0-48.0 [facility] Comment on above: Performed By: #### L IPA, CMP #### [facility] [address] [place] [address] Dr. Toy Macario Hemoglobin (Bld) [Mass/Vol] 8.5 g/dL Critically low 12.0-16.0 [facility] Comment on above: Performed By: #### L IPA, CMP #### [facility] [address] [place] [address] Dr. Toy Macario IG # 0.03 10e3/ul Normal 0.00-0.03 [facility] Comment on above: Performed By: #### L IPA, CMP #### [facility] [address] [place] [address] Dr. Toy Macario IG % 0.4 % Normal 0.0-0.5 [facility] Comment on above: Performed By: #### L IPA, CMP #### [facility] [address] [place] [address] Dr. Toy Macario LYMPH # 1.0 103/ul Critically low 1.2-3.8 [facility] Comment on above: Performed By: #### L IPA, CMP #### [facility] [address] [place] [address] Dr. Toy Macario Lymphocytes/100 WBC (Bld) 14.3 % Critically low 20.5-60.0 [facility] Comment on above: Performed By: #### L IPA, CMP #### [facility] [address] [place] [address] Dr. Toy Macario MANUAL DIFF REQ NO Normal [facility] Comment on above: Performed By: #### L IPA, CMP #### [facility] [address] [place] [address] Dr. Toy Macario MCH (RBC) [Entitic mass] 27.5 pg Normal 26.7-34.0 [facility] Comment on above: Performed By: #### L IPA, CMP #### [facility] [address] [place] [address] Dr. Toy Macario MCHC (RBC) [Mass/Vol] 30.5 g/dL Normal 29.9-35.2 [facility] Comment on above: Performed By: #### L IPA, CMP #### [facility] [address] [place] [address] Dr. Toy Macario MCV (RBC) [Entitic vol] 90.3 fL Normal 81.0-99.[address] [facility] Comment on above: Performed By: #### L IPA, CMP #### [facility] [address] [place] [address] Dr. Toy Macario MONO # 0.5 103/ul Normal 0.3-0.8 [facility] Comment on above: Performed By: #### L IPA, CMP #### [facility] [address] [place] [address] Dr. Toy Macario Monocytes/100 WBC (Bld) 6.8 % Normal 1.7-12.[address] [facility] Comment on above: Performed By: #### L IPA, CMP #### [facility] [address] [place] [address] Dr. Toy Macario NEUT # 5.4 103/ul Normal 1.4-6.5 [facility] Comment on above: Performed By: #### L IPA, CMP #### [facility] [address] [place] [address] Dr. Toy Macario Neutrophils/100 WBC (Bld) 76.1 % Critically high 43.0-75.0 [facility] Comment on above: Performed By: #### L IPA, CMP #### [facility] [address] [place], [place] [address] Dr. Toy Macario Platelet mean volume (Bld) [Entitic vol] 9.6 fL Normal 9.5-13.5 [facility] Comment on above: Performed By: #### L IPA, CMP #### [facility] [address] [place], [place] [address] Dr. Toy Macario PLT 253 103/ul Normal 150-450 [facility] Comment on above: Performed By: #### L IPA, CMP #### [facility] [address] [place], [place] [address] Dr. Toy Macario RBC 3.09 106/ul Critically low 4.20-5.40 [facility] Comment on above: Performed By: #### L IPA, CMP #### [facility] [address] [address] [address] Toy Macario WBC 7.1 103/ul Normal 4.0-11.0 [facility] Comment on above: Performed By: #### L IPA, CMP #### [facility] [address] [address] [address] ABD/PELV W CONon [...] by: URIEL GUILLEN Date: 2021-04-18 12:55 Normal [facility] LIPASEon 04-18-2021 Lipase [Catalytic activity/Vol] 330.0 U/L Critically high 23.0-300.0 [facility] Comment on above: Performed By: #### C LESLIE LIPA #### [facility] [address] [place] [address] Dr. Toy Macario OCC BLD IMMUNOASSAYon 2021 OCCULT BLOOD Negative Normal NEGATIVE [facility] Comment on above: Performed By: #### O DEVENDRA #### [facility] [address] [place] [address] Dr. Toy Macario POINT OF CARE GLUCOSEon 04-06 Glucose [Mass/Vol] 110 mg/dL Critically high 74-[address] [facility] Comment on above: Performed By: #### C BC #### [facility] [address] [place] [address] Dr. Toy Macario Glucose [Mass/Vol] 103 mg/dL Normal 74-106 [facility] Comment on above: Performed By: #### C MP, LIPA #### [facility] [address] [address] [address] Toy Macario Glucose [Mass/Vol] 112 mg/dL Critically high 74-106 [facility] Comment on above: Performed By: #### L IPA, CMP #### [facility] [address] [address] [address] Toy Macario PROF 14(COMP METB)on 022 Albumin [Mass/Vol] 1.7 g/dL Critically low 3.5-5.0 [facility] Comment on above: Performed By: #### C MP, LIPA #### [facility] [address] [address] [address] Toy Macario Albumin/Globulin [Mass ratio] 0.4 {ratio} Normal [facility] Comment on above: Performed By: #### C MP, LIPA #### [facility] [address] [address] [address] Toy Macario ALP [Catalytic activity/Vol] 65 U/L Normal 38-126 [facility] Comment on above: Performed By: #### C MP, LIPA #### [facility] [address] [address] [address] Toy Macario ALT [Catalytic activity/Vol] 15 U/L Normal 9-52 [facility] Comment on above: Performed By: #### C MP, LIPA #### [facility] [address] [address] [address] Toy Macario Anion gap [Moles/Vol] 11.4 mmol/L Normal [facility] Comment on above: Performed By: #### C MP, LIPA #### [facility] [address] [address] [address] Toy Macaroi AST [Catalytic activity/Vol] 11 U/L Critically low 14-36 [facility] Comment on above: Performed By: #### C MP, LIPA #### [facility] [address] [address] [address] Toy Macario Bilirubin [Mass/Vol] 0.3 mg/dL Normal 0.2-1.3 [facility] Comment on above: Performed By: #### C MP, LIPA #### [facility] [address] [address] [address] Toy Macario Calcium [Mass/Vol] 8.7 mg/dL Normal 8.4-10.2 [facility] Comment on above: Performed By: #### C MP, LIPA #### [facility] [address] [address] [address] Toy Macario Chloride [Moles/Vol] 106 mmol/L Normal 98-107 [facility] Comment on above: Performed By: #### C MP, LIPA #### [facility] [address] [address] [address] Toy Macario CO2 [Moles/Vol] 27.1 mmol/L Normal 22.0-30.0 [facility] Comment on above: Performed By: #### C MP, LIPA #### [facility] [address] [place] [address] Dr. Toy Macario Creatinine [Mass/Vol] 0.60 mg/dL Normal 0.52-1.04 [facility] Comment on above: Performed By: #### C MP, LIPA #### [facility] [address] [place] [address] Dr. Toy Macario EGFR-AF FIJIAN >60 Normal >=60 [facility] Comment on above: Performed By: #### C MP, LIPA #### [facility] [address] [address] [address] Toy Macario EGFR-NON AF FIJIAN >60 Normal >=60 [facility] Comment on above: Performed By: #### C MP, LIPA #### [facility] [address] [address] [address] Toy Macario Globulin (S) [Mass/Vol] 4.6 g/dL Normal [facility] Comment on above: Performed By: #### C MP, LIPA #### [facility] [address] [place] [address] Dr. Toy Macario Glucose [Mass/Vol] 110 mg/dL Critically high 74-[address] [facility] Comment on above: Performed By: #### C MP, LIPA #### [facility] [address] [place] [address] Dr. Toy Macario Potassium [Moles/Vol] 3.5 mmol/L Normal 3.4-5.0 [facility] Comment on above: Performed By: #### C MP, LIPA #### [facility] [address] [place] [address] Dr. Toy Macario Protein [Mass/Vol] 6.3 g/dL Normal 6.1-8.2 [facility] Comment on above: Performed By: #### C MP, LIPA #### [facility] [address] [place] [address] Dr. Toy Macario Sodium [Moles/Vol] 141 mmol/L Normal 137-145 [facility] Comment on above: Performed By: #### C MP, LIPA #### [facility] [address] [place] [address] Dr. Toy Macario Urea nitrogen [Mass/Vol] 10.0 mg/dL Normal 7.0-17.0 [facility] Comment on above: Performed By: #### C MP, LIPA #### [facility] [address] [place] [address] Dr. Toy Macario Urea nitrogen/Creatinine [Mass ratio] 16.7 mg/mg Normal [facility] Comment on above: Performed By: #### C MP, LIPA #### [facility] [address] [place] [address] Dr. Toy Macario CBC AUTO DIFFon 04-17-2021 BASO # 0.1 103/ul Normal 0.0-0.1 [facility] Comment on above: Performed By: #### C MP, LIPA #### [facility] [address] [place] [address] Dr. Toy Macario Basophils/100 WBC (Bld) 0.6 % Normal 0.2-2.[address] [facility] Comment on above: Performed By: #### C MP, LIPA #### [facility] [facility] [address] [place] [address] Dr. Toy Macario EO # 0.1 103/ul Normal 0.0-0.7 [facility] Comment on above: Performed By: #### C MP, LIPA #### [facility] [address] [place] [address] Dr. Toy Macario Eosinophils/100 WBC (Bld) 1.6 % Normal 0.9-7.0 [facility] Comment on above: Performed By: #### C MP, LIPA #### [facility] [address] [place] [address] Dr. Toy Macario Erythrocyte distribution width (RBC) [Ratio] 14.4 % Normal 11.0-15.0 [facility] Comment on above: Performed By: #### C MP, LIPA #### [facility] [address] [place] [address] Dr. Toy Macario Hematocrit (Bld) [Volume fraction] 28.5 % Critically low 36.0-48.0 [facility] Comment on above: Performed By: #### C MP, LIPA #### [facility] [address] [place] [address] Dr. Toy Macario Hemoglobin (Bld) [Mass/Vol] 8.7 g/dL Critically low 12.0-16.0 [facility] Comment on above: Performed By: #### C MP, LIPA #### [facility] [address] [place] [address] Dr. Toy Macario IG # 0.06 10e3/ul Critically high 0.00-0.03 [facility] Comment on above: Performed By: #### C MP, LIPA #### [facility] [address] [place] [address] Dr. Toy Macario IG % 0.7 % Critically high 0.0-0.5 [facility] Comment on above: Performed By: #### C MP, LIPA #### [facility] [address] [place] [address] Dr. Toy Macario LYMPH # 1.1 103/ul Critically low 1.2-3.8 [facility] Comment on above: Performed By: #### C MP, LIPA #### [facility] [address] [place] [address] Dr. Toy Macario Lymphocytes/100 WBC (Bld) 12.2 % Critically low 20.5-60.0 [facility] Comment on above: Performed By: #### C MP, LIPA #### [facility] [address] [place] [address] Dr. Toy Macario MANUAL DIFF REQ NO Normal [facility] Comment on above: Performed By: #### C MP, LIPA #### [facility] [address] [place] [address] Dr. Toy Macario MCH (RBC) [Entitic mass] 27.6 pg Normal 26.7-34.0 [facility] Comment on above: Performed By: #### C MP, LIPA #### [facility] [address] [place] [address] Dr. Toy Macraio MCHC (RBC) [Mass/Vol] 30.5 g/dL Normal 29.9-35.2 [facility] Comment on above: Performed By: #### C MP, LIPA #### [facility] [address] [place] [address] Dr. Toy Macario MCV (RBC) [Entitic vol] 90.5 fL Normal 81.0-99.[address] [facility] Comment on above: Performed By: #### C MP, LIPA #### [facility] [address] [place] [address] Dr. Toy Macario MONO # 0.6 103/ul Normal 0.3-0.8 [facility] Comment on above: Performed By: #### C MP, LIPA #### [facility] [address] [place] [address] Dr. Toy Macario Monocytes/100 WBC (Bld) 7.2 % Normal 1.7-12.[address] [facility] Comment on above: Performed By: #### C MP, LIPA #### [facility] [address] [place] [address] Dr. Toy Macario NEUT # 6.7 103/ul Critically high 1.4-6.5 [facility] Comment on above: Performed By: #### C MP, LIPA #### [facility] [address] [address] [address] Toy Macario Neutrophils/100 WBC (Bld) 77.7 % Critically high 43.0-75.0 [facility] Comment on above: Performed By: #### C MP, LIPA #### [facility] [address] [place] [address] Dr. Toy Macario Platelet mean volume (Bld) [Entitic vol] 9.4 fL Critically low 9.5-13.5 [facility] Comment on above: Performed By: #### C LESLIE, LIPA #### [facility] [address] [place] [address] Dr. Toy Macario PLT 272 103/ul Normal 150-450 [facility] Comment on above: Performed By: #### C LESLIE, LIPA #### [facility] [address] [place] [address] Dr. Toy Macario RBC 3.15 106/ul Critically low 4.20-5.40 [facility] Comment on above: Performed By: #### C LESLIE, LIPA #### [facility] [address] [place] [address] Dr. Toy Macario WBC 8.6 103/ul Normal 4.0-11.0 [facility] Comment on above: Performed By: #### C LESLIE, LIPA #### [facility] [address] [place] [address] Dr. Toy Macario CULTURE URINEon 04-17-2021 CULTURE [...] F Trimethoprim/Sulfameth oxazole >=320 R F Normal [facility] Comment on above: Performed By: #### C VDTBH #### [facility] [address] [place] [address] Dr. Toy Macario LIPASEon 04-17-2021 Lipase [Catalytic activity/Vol] 374.0 U/L Critically high 23.0-300.0 [facility] Comment on above: Performed By: #### L IPA, CMP #### [facility] [address] [place] [address] Dr. Toy Macario POINT OF CARE GLUCOSEon 04-06 Glucose [Mass/Vol] 108 mg/dL Critically high 74-[address] [facility] Comment on above: Performed By: #### L IPA, CMP #### [facility] [address] [place] [address] Dr. Toy Macario Glucose [Mass/Vol] 105 mg/dL Normal 74-106 [facility] Comment on above: Performed By: #### C MP, LIPA #### [facility] [address] [place] [address] Dr. Toy Macario Glucose [Mass/Vol] 99 mg/dL Normal 74-106 [facility] Comment on above: Performed By: #### C BC #### [facility] [address] [place] [address] Dr. Toy Macario Glucose [Mass/Vol] 96 mg/dL Normal 74-106 [facility] Comment on above: Performed By: #### L IPA, CMP #### [facility] [address] [place] [address] Dr. Toy Macario PROF 14(COMP METB)on 022 Albumin [Mass/Vol] 1.9 g/dL Critically low 3.5-5.0 [facility] Comment on above: Performed By: #### L IPA, CMP #### [facility] [address] [place] [address] Dr. Toy Macario Albumin/Globulin [Mass ratio] 0.4 {ratio} Normal [facility] Comment on above: Performed By: #### L IPA, CMP #### [facility] [address] [address] [address] Toy Macario ALP [Catalytic activity/Vol] 68 U/L Normal 38-126 [facility] Comment on above: Performed By: #### L IPA, CMP #### [facility] [address] [address] [address] Toy Macario ALT [Catalytic activity/Vol] 21 U/L Normal 9-52 [facility] Comment on above: Performed By: #### L IPA, CMP #### [facility] [address] [address] [address] Toy Macario Anion gap [Moles/Vol] 14.2 mmol/L Normal [facility] Comment on above: Performed By: #### L IPA, CMP #### [facility] [address] [place] [address] Dr. Toy Macario AST [Catalytic activity/Vol] 13 U/L Critically low 14-36 [facility] Comment on above: Performed By: #### L IPA, CMP #### [facility] [address] [address] [address] Toy Macario Bilirubin [Mass/Vol] 0.5 mg/dL Normal 0.2-1.3 [facility] Comment on above: Performed By: #### L IPA, CMP #### [facility] [address] [address] [address] Toy Macario Calcium [Mass/Vol] 8.6 mg/dL Normal 8.4-10.2 [facility] Comment on above: Performed By: #### L IPA, CMP #### [facility] [address] [address] [address] Toy Macario Chloride [Moles/Vol] 106 mmol/L Normal 98-107 [facility] Comment on above: Performed By: #### L IPA, CMP #### [facility] [address] [address] [address] Toy Macario CO2 [Moles/Vol] 26.3 mmol/L Normal 22.0-30.0 [facility] Comment on above: Performed By: #### L IPA, CMP #### [facility] [address] [address] [address] Toy Macario Creatinine [Mass/Vol] 0.78 mg/dL Normal 0.52-1.04 [facility] Comment on above: Performed By: #### L IPA, CMP #### [facility] [address] [address] [address] Toy Macario EGFR-AF FIJIAN >60 Normal >=60 [facility] Comment on above: Performed By: #### L IPA, CMP #### [facility] [address] [address] [address] Toy Macario EGFR-NON AF FIJIAN >60 Normal >=60 [facility] Comment on above: Performed By: #### L IPA, CMP #### [facility] [address] [place] [address] Dr. Toy Macario Globulin (S) [Mass/Vol] 4.5 g/dL Normal [facility] Comment on above: Performed By: #### L IPA, CMP #### [facility] [address] [address] [address] Toy Macario Glucose [Mass/Vol] 89 mg/dL Normal 74-106 [facility] Comment on above: Performed By: #### L IPA, CMP #### [facility] [address] [place] [address] Dr. Toy Macario Potassium [Moles/Vol] 3.4 mmol/L Normal 3.4-5.0 [facility] Comment on above: Performed By: #### L IPA, CMP #### [facility] [address] [address] [address] Toy Macario Protein [Mass/Vol] 6.4 g/dL Normal 6.1-8.2 [facility] Comment on above: Performed By: #### L IPA, CMP #### [facility] [address] [address] [address] Toy Macario Sodium [Moles/Vol] 143 mmol/L Normal 137-145 [facility] Comment on above: Performed By: #### L IPA, CMP #### [facility] [address] [address] [address] Toy Macario Urea nitrogen [Mass/Vol] 9.0 mg/dL Normal 7.0-17.0 [facility] Comment on above: Performed By: #### L IPA, CMP #### [facility] [address] [address] [address] Toy Macario Urea nitrogen/Creatinine [Mass ratio] 11.5 mg/mg Normal [facility] Comment on above: Performed By: #### L IPA, CMP #### [facility] [address] [place] [address] Dr. Toy Macario CBC AUTO DIFFon 04-16-2021 BASO # 0.1 103/ul Normal 0.0-0.1 [facility] Comment on above: Performed By: #### C MP, LIPA #### [facility] [address] [place] [address] Dr. Toy Macario Basophils/100 WBC (Bld) 0.4 % Normal 0.2-2.[address] [facility] Comment on above: Performed By: #### C MP, LIPA #### [facility] [address] [place] [address] Dr. Toy Macario EO # 0.0 103/ul Normal 0.0-0.7 [facility] Comment on above: Performed By: #### C MP, LIPA #### [facility] [address] [place] [address] Dr. Toy Macario Eosinophils/100 WBC (Bld) 0.3 % Critically low 0.9-7.0 [facility] Comment on above: Performed By: #### C MP, LIPA #### [facility] [address] [place] [address] Dr. Toy Macario Erythrocyte distribution width (RBC) [Ratio] 14.1 % Normal 11.0-15.0 [facility] Comment on above: Performed By: #### C MP, LIPA #### [facility] [address] [place] [address] Dr. Toy Macario Hematocrit (Bld) [Volume fraction] 31.9 % Critically low 36.0-48.0 [facility] Comment on above: Performed By: #### C MP, LIPA #### [facility] [address] [place] [address] Dr. Toy Macario Hemoglobin (Bld) [Mass/Vol] 9.9 g/dL Critically low 12.0-16.0 [facility] Comment on above: Performed By: #### C MP, LIPA #### [facility] [address] [place] [address] Dr. Toy Macario IG # 0.08 10e3/ul Critically high 0.00-0.03 [facility] Comment on above: Performed By: #### C MP, LIPA #### [facility] [address] [place] [address] Dr. Toy Macario IG % 0.7 % Critically high 0.0-0.5 [facility] Comment on above: Performed By: #### C MP, LIPA #### [facility] [address] [place] [address] Dr. Toy Macario LYMPH # 0.9 103/ul Critically low 1.2-3.[address] [facility] Comment on above: Performed By: #### C MP, LIPA #### [facility] [address] [place] [address] Dr. Toy Macario Lymphocytes/100 WBC (Bld) 7.8 % Critically low 20.5-60.0 [facility] Comment on above: Performed By: #### C MP, LIPA #### [facility] [address] [place] [address] Dr. Toy Macario MANUAL DIFF REQ NO Normal [facility] Comment on above: Performed By: #### C MP, LIPA #### [facility] [address] [place] [address] Dr. Toy Macario MCH (RBC) [Entitic mass] 27.5 pg Normal 26.7-34.0 [facility] Comment on above: Performed By: #### C MP, LIPA #### [facility] [address] [place] [address] Dr. Toy Macario MCHC (RBC) [Mass/Vol] 31.0 g/dL Normal 29.9-35.2 [facility] Comment on above: Performed By: #### C MP, LIPA #### [facility] [address] [place] [address] Dr. Toy Macario MCV (RBC) [Entitic vol] 88.6 fL Normal 81.0-99.[address] [facility] Comment on above: Performed By: #### C MP, LIPA #### [facility] [address] [place] [address] Dr. Toy Macario MONO # 0.6 103/ul Normal 0.3-0.8 [facility] Comment on above: Performed By: #### C MP, LIPA #### [facility] [address] [place] [address] Dr. Toy Macario Monocytes/100 WBC (Bld) 5.3 % Normal 1.7-12.[address] [facility] Comment on above: Performed By: #### C MP, LIPA #### [facility] [address] [place] [address] Dr. Toy Macario NEUT # 10.0 103/ul Critically high 1.4-6.5 [facility] Comment on above: Performed By: #### C MP, LIPA #### [facility] [address] [place] [address] Dr. Toy Macario Neutrophils/100 WBC (Bld) 85.5 % Critically high 43.0-75.0 [facility] Comment on above: Performed By: #### C MP, LIPA #### [facility] [address] [place] [address] Dr. Toy Macario Platelet mean volume (Bld) [Entitic vol] 9.3 fL Critically low 9.5-13.5 [facility] Comment on above: Performed By: #### C MP, LIPA #### [facility] [address] [place] [address] Dr. Toy Macario PLT 321 103/ul Normal 150-450 [facility] Comment on above: Performed By: #### C MP, LIPA #### [facility] [address] [address] [address] Toy Macario RBC 3.60 106/ul Critically low 4.20-5.40 [facility] Comment on above: Performed By: #### C MP, LIPA #### [facility] [address] [place] [address] Dr. Toy Macario WBC 11.7 103/ul Critically high 4.0-11.0 [facility] Comment on above: Performed By: #### C MP, LIPA #### [facility] [address] [place] [address] Dr. Toy Macario LIPASEon 04-16-2021 Lipase [Catalytic activity/Vol] 667.0 U/L Critically high 23.0-300.0 [facility] Comment on above: Performed By: #### O DEVENDRA #### [facility] [address] [place] [address] Dr. Toy Macario POINT OF CARE GLUCOSEon 04-06 Glucose [Mass/Vol] 89 mg/dL Normal 74-106 [facility] Comment on above: Performed By: #### O DEVENDRA #### [facility] [address] [place] [address] Dr. Toy Macario Glucose [Mass/Vol] 92 mg/dL Normal 74-106 [facility] Comment on above: Performed By: #### L IPA, CMP #### [facility] [address] [place] [address] Dr. Toy Macario Glucose [Mass/Vol] 100 mg/dL Normal 74-106 [facility] Comment on above: Performed By: #### C VDTBH #### [facility] [address] [place] [address] Dr. Toy Macario PROF 14(COMP METB)on 022 Albumin [Mass/Vol] 1.9 g/dL Critically low 3.5-5.0 [facility] Comment on above: Performed By: #### O DEVENDRA #### [facility] [address] [place] [address] Dr. Toy Macario Albumin/Globulin [Mass ratio] 0.4 {ratio} Normal [facility] Comment on above: Performed By: #### O DEVENDRA #### [facility] [address] [place] [address] Dr. Toy Macario ALP [Catalytic activity/Vol] 69 U/L Normal 38-126 [facility] Comment on above: Performed By: #### O DEVENDRA #### [facility] [address] [place] [address] Dr. Toy Macario ALT [Catalytic activity/Vol] 27 U/L Normal 9-52 [facility] Comment on above: Performed By: #### O DEVENDRA #### [facility] [address] [place] [address] Dr. Toy Macario Anion gap [Moles/Vol] 13.5 mmol/L Normal [facility] Comment on above: Performed By: #### O DEVENDRA #### [facility] [address] [place] [address] Dr. Toy Macario AST [Catalytic activity/Vol] 20 U/L Normal 14-36 [facility] Comment on above: Performed By: #### O DEVENDRA #### [facility] [address] [place] [address] Dr. Toy Macario Bilirubin [Mass/Vol] 0.6 mg/dL Normal 0.2-1.3 [facility] Comment on above: Performed By: #### O DEVENDRA #### [facility] [address] [place] [address] Dr. Toy Macario Calcium [Mass/Vol] 8.7 mg/dL Normal 8.4-10.2 [facility] Comment on above: Performed By: #### O DEVENDRA #### [facility] [address] [place] [address] Dr. Toy Macario Chloride [Moles/Vol] 106 mmol/L Normal 98-107 [facility] Comment on above: Performed By: #### O DEVENDRA #### [facility] [address] [place] [address] Dr. Toy Macario CO2 [Moles/Vol] 24.7 mmol/L Normal 22.0-30.0 [facility] Comment on above: Performed By: #### O DEVENDRA #### [facility] [address] [address] [address] Toy Macario Creatinine [Mass/Vol] 0.92 mg/dL Normal 0.52-1.04 [facility] Comment on above: Performed By: #### O DEVENDRA #### [facility] [address] [address] [address] Toy Macario EGFR-AF FIJIAN >60 Normal >=60 [facility] Comment on above: Performed By: #### O DEVENDRA #### [facility] [address] [address] [address] Toy Macario EGFR-NON AF FIJIAN >60 Normal >=60 [facility] Comment on above: Performed By: #### O DEVENDRA #### [facility] [address] [place] [address] Dr. Toy Macario Globulin (S) [Mass/Vol] 4.7 g/dL Normal [facility] Comment on above: Performed By: #### O DEVENDRA #### [facility] [address] [address] [address] Toy Macario Glucose [Mass/Vol] 126 mg/dL Critically high 74-[address] [facility] Comment on above: Performed By: #### O DEVENDRA #### [facility] [address] [place] [address] Dr. Toy Macario Potassium [Moles/Vol] 3.2 mmol/L Critically low 3.4-5.0 [facility] Comment on above: Performed By: #### O DEVENDRA #### [facility] [address] [address] [address] Toy Macario Protein [Mass/Vol] 6.6 g/dL Normal 6.1-8.2 [facility] Comment on above: Performed By: #### O DEVENDRA #### [facility] [address] [address] [address] Toy Macario Sodium [Moles/Vol] 141 mmol/L Normal 137-145 [facility] Comment on above: Performed By: #### O DEVENDRA #### [facility] [address] [place] [address] Dr. Toy Macario Urea nitrogen [Mass/Vol] 8.0 mg/dL Normal 7.0-17.0 [facility] Comment on above: Performed By: #### O DEVENDRA #### [facility] [address] [place] [address] Dr. Toy Macario Urea nitrogen/Creatinine [Mass ratio] 8.7 mg/mg Normal [facility] Comment on above: Performed By: #### O DEVENDRA #### [facility] [address] [place] [address] Dr. Toy Macario AMYLASEon 04-15-2021 Amylase [Catalytic activity/Vol] 97 U/L Normal 31-110 [facility] Comment on above: Performed By: #### C MP, LIPA #### [facility] [address] [place] [address] Dr. Toy Macario CBC AUTO DIFFon 04-15-2021 BASO # 0.1 103/ul Normal 0.0-0.1 [facility] Comment on above: Performed By: #### C BC #### [facility] [address] [place] [address] Dr. Toy Macario Basophils/100 WBC (Bld) 0.5 % Normal 0.2-2.[address] [facility] Comment on above: Performed By: #### C BC #### [facility] [address] [place] [address] Dr. Toy Macario EO # 0.0 103/ul Normal 0.0-0.7 [facility] Comment on above: Performed By: #### C BC #### [facility] [address] [place] [address] Dr. Toy Macario Eosinophils/100 WBC (Bld) 0.3 % Critically low 0.9-7.0 [facility] Comment on above: Performed By: #### C BC #### [facility] [address] [place] [address] Dr. Toy Macario Erythrocyte distribution width (RBC) [Ratio] 13.9 % Normal 11.0-15.0 [facility] Comment on above: Performed By: #### C BC #### [facility] [address] [address] [address] Toy Macario Hematocrit (Bld) [Volume fraction] 34.2 % Critically low 36.0-48.0 [facility] Comment on above: Performed By: #### C BC #### [facility] [address] [place] [address] Dr. Toy Macario Hemoglobin (Bld) [Mass/Vol] 10.8 g/dL Critically low 12.0-16.0 [facility] Comment on above: Performed By: #### C BC #### [facility] [address] [place] [address] Dr. Toy Macario IG # 0.05 10e3/ul Critically high 0.00-0.03 [facility] Comment on above: Performed By: #### C BC #### [facility] [address] [place] [address] Dr. Toy Macario IG % 0.4 % Normal 0.0-0.5 [facility] Comment on above: Performed By: #### C BC #### [facility] [address] [place] [address] Dr. Toy Macario LYMPH # 0.9 103/ul Critically low 1.2-3.[address] [facility] Comment on above: Performed By: #### C BC #### [facility] [address] [place] [address] Dr. Toy Macario Lymphocytes/100 WBC (Bld) 8.4 % Critically low 20.5-60.0 [facility] Comment on above: Performed By: #### C BC #### [facility] [address] [place] [address] Dr. Toy Macario MANUAL DIFF REQ NO Normal [facility] Comment on above: Performed By: #### C BC #### [facility] [address] [place] [address] Dr. Toy Macario MCH (RBC) [Entitic mass] 28.1 pg Normal 26.7-34.0 [facility] Comment on above: Performed By: #### C BC #### [facility] [address] [address] [address] Toy Macario MCHC (RBC) [Mass/Vol] 31.6 g/dL Normal 29.9-35.2 [facility] Comment on above: Performed By: #### C BC #### [facility] [id number] Toy Macario MCV (RBC) [Entitic vol] 88.8 fL Normal 81.0-99.[address] [facility] Comment on above: Performed By: #### C BC #### [facility] [address] [address] [address] Toy Macario MONO # 0.7 103/ul Normal 0.3-0.8 [facility] Comment on above: Performed By: #### C BC #### [facility] [address] [address] [address] Toy Macario Monocytes/100 WBC (Bld) 6.3 % Normal 1.7-12.[address] [facility] Comment on above: Performed By: #### C BC #### [facility] [address] [address] [address] Toy Maacrio NEUT # 9.4 103/ul Critically high 1.4-6.5 [facility] Comment on above: Performed By: #### C BC #### [facility] [address] [address] [address] Toy Macario Neutrophils/100 WBC (Bld) 84.1 % Critically high 43.0-75.0 [facility] Comment on above: Performed By: #### C BC #### [facility] [address] [address] [address] Toy Macario Platelet mean volume (Bld) [Entitic vol] 9.1 fL Critically low 9.5-13.5 [facility] Comment on above: Performed By: #### C BC #### [facility] [address] [address] [address] Toy Macario PLT 361 103/ul Normal 150-450 [facility] Comment on above: Performed By: #### C BC #### [facility] [address] [place], [place] [address] Dr. Toy Macario RBC 3.85 106/ul Critically low 4.20-5.40 [facility] Comment on above: Performed By: #### C BC #### [facility] [address] [place], [place] [address] [address]. Toy Macario WBC 11.2 103/ul Critically high 4.0-11.0 [facility] Comment on above: Performed By: #### C BC #### [facility] [address] [place], [place] [address] ABD/PELV W CONon [...] URIEL GUILLEN Date: 2021-04-15 11:33 Normal [facility] CULTURE BLOODon 04-15-2021 Microscopic examination of blood, culture Culture Observations: NO GROWTH AT 5 DAYS. Normal [facility] Comment on above: Performed By: #### C VDTBH #### [facility] [address] [place] [address] [address] Toy Macario Covid-19 PCR ([facility])on 04-06 SARS-CoV-2 (COVID-19) RNA PITO+probe Ql (Unsp spec) Not detected Normal NOT DETECTED [facility] Comment on above: Result Comment: When [...] for this test is supported by the [employer] Operator of Health and Human Service's [...] used). Performed By: #### C BC #### [facility] [address] [place] [address] Toy Macario ER URINE PROFILEon 2 Bilirubin Ql (U) Negative Normal NEGATIVE [facility] Comment on above: Performed By: #### C MP, LIPA #### [facility] [address] [address] [address] Toy Macario Clarity (U) CLOUDY Abnormal CLEAR [facility] Comment on above: Performed By: #### C MP, LIPA #### [facility] [address] [place] [address] Dr. Toy Macario Color (U) YELLOW Normal YELLOW [facility] Comment on above: Performed By: #### C MP, LIPA #### [facility] [address] [place] [address] Dr. Toy [place] A micrscopic examination will be performed if indicated. Normal [facility] Comment on above: Performed By: #### C MP, LIPA #### [facility] [address] [place] [address] Dr. Toy Macario Glucose Ql (U) Negative Normal NEGATIVE [facility] Comment on above: Performed By: #### C MP, LIPA #### [facility] [address] [place] [address] Dr. Toy Macario Hemoglobin Ql (U) SMALL Abnormal NEGATIVE [facility] Comment on above: Performed By: #### C MP, LIPA #### [facility] [address] [place] [address] Dr. Toy Macario Ketones Ql (U) 15 mg/dl Abnormal NEGATIVE [facility] Comment on above: Performed By: #### C MP, LIPA #### [facility] [address] [address] [address] Toy Macario LEUKOCYTES TRACE Abnormal NEGATIVE [facility] Comment on above: Performed By: #### C MP, LIPA #### [facility] [address] [address] [address] Toy Macario Nitrite Ql (U) Negative Normal NEGATIVE [facility] Comment on above: Performed By: #### C MP, LIPA #### [facility] [address] [place] [address] Dr. Toy Macario pH (U) 6.0 [pH] Normal 5-9 [facility] Comment on above: Performed By: #### C MP, LIPA #### [facility] [address] [place] [address] Dr. Toy Macario Protein (U) [Mass/Vol] 100 mg/dL Abnormal NEGAT CHRISTINA/ TRACE [facility] Comment on above: Performed By: #### C MP, LIPA #### [facility] [address] [place] [address] Dr. Toy Macario SPEC GRAVITY 1.025 Normal 1.005-<=1.[address] [place] [address] Comment on above: Performed By: #### C MP, LIPA #### [facility] [address] [place] [address] Dr. Toy Macario UR MICRO IND INDICATED Normal [facility] Comment on above: Performed By: #### C MP, LIPA #### [facility] [address] [place] [address] Dr. Toy Macario Urobilinogen Qn (U) 1.0 {Lisha'U}/dL Normal 0.2 - 1. 0 [facility] Comment on above: Performed By: #### C MP, LIPA #### [facility] [address] [place] [address] Dr. Toy Macario LIPASEon 04-15-2021 Lipase [Catalytic activity/Vol] 929.0 U/L Critically high 23.0-300.0 [facility] Comment on above: Performed By: #### C MP, LIPA #### [facility] [address] [place] [address] Dr. Toy Macario LIVER PROFILEon 04-15-2021 Albumin [Mass/Vol] 2.3 g/dL Critically low 3.5-5.0 [facility] Comment on above: Performed By: #### C MP, LIPA #### [facility] [address] [place] [address] Dr. Toy Macario Albumin/Globulin [Mass ratio] 0.5 {ratio} Normal [facility] Comment on above: Performed By: #### C MP, LIPA #### [facility] [address] [place] [address] Dr. Toy Macario ALP [Catalytic activity/Vol] 73 U/L Normal 38-126 [facility] Comment on above: Performed By: #### C MP, LIPA #### [facility] [address] [address] [address] Toy Macario ALT [Catalytic activity/Vol] 29 U/L Normal 9-52 [facility] Comment on above: Performed By: #### C MP, LIPA #### [facility] [address] [address] [address] Toy Macraio AST [Catalytic activity/Vol] 21 U/L Normal 14-36 [facility] Comment on above: Performed By: #### C MP, LIPA #### [facility] [address] [place] [address] Dr. Toy Macario BILI, CONJUGATED 0.1 mg/dL Normal 0.0-0.3 [facility] Comment on above: Performed By: #### C MP, LIPA #### [facility] [address] [place] [address] Dr. Toy Macario Bilirubin [Mass/Vol] 0.4 mg/dL Normal 0.2-1.3 [facility] Comment on above: Performed By: #### C MP, LIPA #### [facility] [address] [place] [address] Dr. Toy Macario Globulin (S) [Mass/Vol] 5.1 g/dL Normal [facility] Comment on above: Performed By: #### C MP, LIPA #### [facility] [address] [place] [address] Dr. Toy Macario Protein [Mass/Vol] 7.4 g/dL Normal 6.1-8.2 [facility] Comment on above: Performed By: #### C MP, LIPA #### [facility] [address] [place] [address] Dr. Toy Macario URon 04-15-2021 , QUAL Negative Normal NEGATIVE [facility] Comment on above: Performed By: #### P REGU #### [facility] [address] [address] [address] Toy Macario PROF CHEM 8 (BAS METB)on Anion gap [Moles/Vol] 10.5 mmol/L Normal [facility] Comment on above: Performed By: #### C MP, LIPA #### [facility] [address] [place] [address] Dr. Toy Macario Calcium [Mass/Vol] 9.0 mg/dL Normal 8.4-10.2 [facility] Comment on above: Performed By: #### C MP, LIPA #### [facility] [address] [place] [address] Dr. Toy Macario Chloride [Moles/Vol] 102 mmol/L Normal 98-107 [facility] Comment on above: Performed By: #### C MP, LIPA #### [facility] [address] [place] [address] Dr. Toy Macario CO2 [Moles/Vol] 27.5 mmol/L Normal 22.0-30.0 [facility] Comment on above: Performed By: #### C MP, LIPA #### [facility] [address] [place] [address] Dr. Toy Macario Creatinine [Mass/Vol] 0.68 mg/dL Normal 0.52-1.04 [facility] Comment on above: Performed By: #### C MP, LIPA #### [facility] [address] [place] [address] Dr. Toy Macario EGFR-AF FIJIAN >60 Normal >=60 [facility] Comment on above: Performed By: #### C MP, LIPA #### [facility] [address] [place] [address] Dr. Toy Macario EGFR-NON AF FIJIAN >60 Normal >=60 [facility] Comment on above: Performed By: #### C MP, LIPA #### [facility] [address] [place] [address] Dr. Toy Macario Glucose [Mass/Vol] 137 mg/dL Critically high 74-[address] [facility] Comment on above: Performed By: #### C MP, LIPA #### [facility] [address] [place] [address] Dr. Toy Macario Potassium [Moles/Vol] 3.5 mmol/L Normal 3.4-5.0 [facility] Comment on above: Performed By: #### C MP, LIPA #### [facility] [address] [place] [address] Dr. Toy Macario Sodium [Moles/Vol] 139 mmol/L Normal 137-145 [facility] [place] [facility] Comment on above: Performed By: #### C MP, LIPA #### [facility] [address] [place] [address] Dr. Toy Macario Urea nitrogen [Mass/Vol] 7.0 mg/dL Normal 7.0-17.0 [facility] Comment on above: Performed By: #### C MP, LIPA #### [facility] [address] [place] [address] Dr. Toy Macario Urea nitrogen/Creatinine [Mass ratio] 10.3 mg/mg Normal [facility] Comment on above: Performed By: #### C MP, LIPA #### [facility] [address] [place] [address] Dr. Toy Macario URINE MICROSCOPIC ONLYon AMORPHOUS CRYSTALS MODERATE Normal [facility] [place] [facility] Comment on above: Performed By: #### C MP, LIPA #### [facility] [address] [place] [address] Dr. Toy Macario BACTERIA SMALL Abnormal NONE SEEN [facility] Comment on above: Performed By: #### C MP, LIPA #### [facility] [address] [place] [address] Dr. Toy Macario Bacteria identified Cx Nom (U) INDICATED Normal [facility] Comment on above: Performed By: #### C MP, LIPA #### [facility] [address] [place] [address] Dr. Toy Macario CAST NONE SEEN Normal NONE SEEN [facility] Comment on above: Performed By: #### C MP, LIPA #### [facility] [address] [place] [address] Dr. Toy Macario Crystals LM Nom (Urine sed) SEEN Abnormal NONE SEEN [facility] Comment on above: Performed By: #### C MP, LIPA #### [facility] [address] [place] [address] Dr. Toy Macario Epithelial cells LM Ql (Urine sed) FEW Abnormal NONE SEEN /RARE [facility] Comment on above: Performed By: #### C MP, LIPA #### [facility] [address] [place] [address] Dr. Toy Macario MUCOUS SMALL Abnormal NONE SEEN [facility] Comment on above: Performed By: #### C MP, LIPA #### [facility] [address] [place] [address] Dr. Toy Macario RBC 2-5 Abnormal 0-2 [facility] Comment on above: Performed By: #### C MP, LIPA #### [facility] [address] [place] [address] Dr. Toy Macario WBC 5-10 Abnormal NONE SEEN [facility] Comment on above: Performed By: #### C MP, LIPA #### [facility] [address] [place] [address] Dr. Toy Macario CBC AUTO DIFFon 03-19-2021 BASO # 0.1 103/ul Normal 0.0-0.1 [facility] Comment on above: Performed By: #### O DEVENDRA #### [facility] [address] [place] [address] Dr. Toy Macario Basophils/100 WBC (Bld) 0.6 % Normal 0.2-2.[address] [facility] Comment on above: Performed By: #### O DEVENDRA #### [facility] [address] [place] [address] Dr. Toy Macario EO # 0.1 103/ul Normal 0.0-0.7 [facility] Comment on above: Performed By: #### O DEVENDRA #### [facility] [address] [place] [address] Dr. Toy Macario Eosinophils/100 WBC (Bld) 0.5 % Critically low 0.9-7.0 [facility] Comment on above: Performed By: #### O DEVENDRA #### [facility] [address] [place] [address] Dr. Toy Macario Erythrocyte distribution width (RBC) [Ratio] 14.7 % Normal 11.0-15.0 [facility] Comment on above: Performed By: #### O DEVENDRA #### [facility] [address] [place] [address] Dr. Toy Macario Hematocrit (Bld) [Volume fraction] 40.8 % Normal 36.0-48.0 [facility] Comment on above: Performed By: #### O DEVENDRA #### [facility] [address] [place] [address] Dr. Toy Macario Hemoglobin (Bld) [Mass/Vol] 12.8 g/dL Normal 12.0-16.0 [facility] Comment on above: Performed By: #### O DEVENDRA #### [facility] [address] [place] [address] Dr. Toy Macario IG # 0.04 10e3/ul Critically high 0.00-0.03 [facility] Comment on above: Performed By: #### O DEVENDRA #### [facility] [address] [place] [address] Dr. Toy Macario IG % 0.3 % Normal 0.0-0.5 [facility] Comment on above: Performed By: #### O DEVENDRA #### [facility] [address] [place] [address] Dr. Toy Macario LYMPH # 1.0 103/ul Critically low 1.2-3.[address] [facility] Comment on above: Performed By: #### O DEVENDRA #### [facility] [address] [place] [address] Dr. Toy Macario Lymphocytes/100 WBC (Bld) 8.1 % Critically low 20.5-60.0 [facility] Comment on above: Performed By: #### O DEVENDRA #### [facility] [address] [place] [address] Dr. Toy Macario MANUAL DIFF REQ NO Normal [facility] Comment on above: Performed By: #### O DEVENDRA #### [facility] [address] [place] [address] Dr. Toy Macario MCH (RBC) [Entitic mass] 28.1 pg Normal 26.7-34.0 [facility] Comment on above: Performed By: #### O DEVENDRA #### [facility] [address] [place] [address] Dr. Toy Macario MCHC (RBC) [Mass/Vol] 31.4 g/dL Normal 29.9-35.2 [facility] Comment on above: Performed By: #### O DEVENDRA #### [facility] [address] [place] [address] Dr. Toy Macario MCV (RBC) [Entitic vol] 89.7 fL Normal 81.0-99.[address] [facility] Comment on above: Performed By: #### O DEVENDRA #### [facility] [address] [place] [address] Dr. Toy Macario MONO # 0.8 103/ul Normal 0.3-0.8 [facility] Comment on above: Performed By: #### O DEVENDRA #### [facility] [address] [place] [address] Dr. Toy Macario Monocytes/100 WBC (Bld) 6.3 % Normal 1.7-12.[address] [facility] Comment on above: Performed By: #### O DEVENDRA #### [facility] [address] [place] [address] Dr. Toy Macario NEUT # 10.0 103/ul Critically high 1.4-6.5 [facility] Comment on above: Performed By: #### O DEVENDRA #### [facility] [address] [place] [address] Dr. Toy Macario Neutrophils/100 WBC (Bld) 84.2 % Critically high 43.0-75.0 [facility] Comment on above: Performed By: #### O DEVENDRA #### [facility] [address] [place] [address] Dr. Toy Macario Platelet mean volume (Bld) [Entitic vol] 9.5 fL Normal 9.5-13.5 [facility] Comment on above: Performed By: #### O DEVENDRA #### [facility] [address], [place] [address] Dr. Toy Macario PLT 216 103/ul Normal 150-450 [facility] Comment on above: Performed By: #### O DEVENDRA #### [facility] [address], [place] [address] Dr. Toy Macario RBC 4.55 106/ul Normal 4.20-5.40 [facility] Comment on above: Performed By: #### O DEVENDRA #### [facility] [address], [place] [address] Dr. Toy Macario WBC 11.9 103/ul Critically high 4.0-11.0 [facility] Comment on above: Performed By: #### O DEVENDRA #### [facility] [address] [place] [address] ABD/PELV W CONon [...] ART NIX Date: 2021-03-19 15:19 Normal [facility] CULTURE URINEon 03-19-2021 CULTURE URINE Culture Observations : LIGHT GROWTH OF MIXED GENITAL CHRIS. NO POTENTIAL PATHOGENS SEEN. Normal [facility] Comment on above: Performed By: #### C VDTB #### [facility] [address] [place] [address] Dr. Toy Macario [facility] SARS-CoV-2 (COVID-19) RNA PITO+probe Ql (Unsp spec) Not detected Normal NOT DETECTED [facility] Comment on above: Result Comment: When [...] for this test is supported by the [employer] Operator of Health and Human Service's [...] Performed By: #### C MP, LIPA #### [facility] [address] [place] [address] Dr. Toy Macario ER URINE PROFILEon 2 Bilirubin Ql (U) SMALL Abnormal NEGATIVE [facility] Comment on above: Performed By: #### C VDTBH #### [facility] [address] [place] [address] Dr. Toy Macario Clarity (U) SL CLOUDY Abnormal CLEAR [facility] Comment on above: Performed By: #### C VDTBH #### [facility] [address] [place] [address] Dr. Toy Macario Color (U) YELLOW Normal YELLOW [facility] Comment on above: Performed By: #### C VDTBH #### [facility] [address] [place] [address] Dr. Toy [place] A micrscopic examination will be performed if indicated. Normal [facility] Comment on above: Performed By: #### C VDTBH #### [facility] [address] [place] [address] Dr. Toy Macario Glucose Ql (U) Negative Normal NEGATIVE [facility] Comment on above: Performed By: #### C VDTBH #### [facility] [address] [place] [address] Dr. Toy Macario Hemoglobin Ql (U) Negative Normal NEGATIVE [facility] Comment on above: Performed By: #### C VDTBH #### [facility] [address] [place] [address] Dr. Toy Macario Ketones Ql (U) Negative Normal NEGATIVE [facility] Comment on above: Performed By: #### C VDTBH #### [facility] [address] [place] [address] Dr. Toy Macario LEUKOCYTES SMALL Abnormal NEGATIVE [facility] Comment on above: Performed By: #### C VDTBH #### [facility] [address] [place] [address] Dr. Toy Macario Nitrite Ql (U) Negative Normal NEGATIVE [facility] Comment on above: Performed By: #### C VDTBH #### [facility] [address] [place] [address] Dr. Toy Macario pH (U) 6.0 [pH] Normal 5-9 [facility] Comment on above: Performed By: #### C VDTBH #### [facility] [address] [place] [address] Dr. Toy Macario Protein (U) [Mass/Vol] 30 mg/dL Abnormal NEGAT CHRISTINA/ TRACE [facility] Comment on above: Performed By: #### C VDTBH #### [facility] [address] [place] [address] Dr. Toy Macario SPEC GRAVITY >=1.030 Abnormal 1.005-<=1.0 25 [facility] Comment on above: Performed By: #### C VDTBH #### [facility] [address] [place] [address] Dr. Toy Macario UR MICRO IND INDICATED Normal [facility] Comment on above: Performed By: #### C VDTBH #### [facility] [address] [place] [address] Dr. Toy Macario Urobilinogen Qn (U) 1.0 {Lisha'U}/dL Normal 0.2 - 1. 0 [facility] Comment on above: Performed By: #### C VDTBH #### [facility] [address] [place] [address] Dr. Toy Macario INFLUENZA A AND B AGon 03-19 [facility] SEE BELOW Normal [facility] Comment on above: Result Comment: Nega tive for Flu A protein angiten. Infection due to Flu A cannot be ruled out. Flu A angiten in the sample may be below the detection limit of the test. Performed By: #### L IPA, CMP #### [facility] [address] [place] [address] Dr. Toy Macario INFLUBNEG SEE BELOW Normal [facility] Comment on above: Result Comment: Nega tive for Flu B protein antigen. Infection due to Flu B cannot be ruled out. Flu B antigen in the sample may be below the detection limit of the test. Performed By: #### L IPA, CMP #### [facility] [address] [place] [address] Dr. Toy Macario INFLUENZA A AG Negative Normal NEGATIVE SEE COMMENT [facility] Comment on above: Performed By: #### L IPA, CMP #### [facility] [address] [address] [address] Toy Macario INFLUENZA B AG Negative Normal NEGATIVE SEE COMMENT [facility] Comment on above: Performed By: #### L IPA, CMP #### [facility] [address] [place] [address] Dr. Toy Macario INTERNAL CONTROLS Within Normal Limits Normal Wi thin Normal Limits [facility] Comment on above: Performed By: #### L IPA, CMP #### [facility] [address] [place] [address] Dr. Toy Macario LIPASEon 03-19-2021 Lipase [Catalytic activity/Vol] 134.0 U/L Normal 23.0-300.0 [facility] Comment on above: Performed By: #### C MP, LIPA #### [facility] [address] [place] [address] Dr. Toy Macario URon 03-19-2021 , QUAL Negative Normal NEGATIVE [facility] Comment on above: Performed By: #### O DEVENDRA #### [facility] [address] [place] [address] Dr. Toy Macario PROF 14(COMP METB)on 022 Albumin [Mass/Vol] 3.3 g/dL Critically low 3.5-5.0 [facility] Comment on above: Performed By: #### C MP, LIPA #### [facility] [address] [place] [address] Dr. Toy Macario Albumin/Globulin [Mass ratio] 0.8 {ratio} Normal [facility] Comment on above: Performed By: #### C MP, LIPA #### [facility] [address] [place] [address] Dr. Toy Macario ALP [Catalytic activity/Vol] 151 U/L Critically high 38-126 [facility] Comment on above: Performed By: #### C MP, LIPA #### [facility] [address] [address] [address] Toy Macario ALT [Catalytic activity/Vol] 105 U/L Critically high 9-52 [facility] Comment on above: Performed By: #### C MP, LIPA #### [facility] [address] [address] [address] Toy Macario Anion gap [Moles/Vol] 11.6 mmol/L Normal [facility] Comment on above: Performed By: #### C MP, LIPA #### [facility] [address] [address] [address] Toy Macario AST [Catalytic activity/Vol] 222 U/L Critically high 14-36 [facility] Comment on above: Performed By: #### C MP, LIPA #### [facility] [address] [place] [address] Dr. Toy Macario Bilirubin [Mass/Vol] 1.3 mg/dL Normal 0.2-1.3 [facility] Comment on above: Performed By: #### C MP, LIPA #### [facility] [address] [address] [address] Toy Macario Calcium [Mass/Vol] 8.8 mg/dL Normal 8.4-10.2 [facility] Comment on above: Performed By: #### C MP, LIPA #### [facility] [address] [address] [address] Toy Macario Chloride [Moles/Vol] 107 mmol/L Normal 98-107 [facility] Comment on above: Performed By: #### C MP, LIPA #### [facility] [address] [address] [address] Toy Macario CO2 [Moles/Vol] 25.7 mmol/L Normal 22.0-30.0 [facility] Comment on above: Performed By: #### C MP, LIPA #### [facility] [address] [address] [address] Toy Macario Creatinine [Mass/Vol] 0.92 mg/dL Normal 0.52-1.04 [facility] Comment on above: Performed By: #### C MP, LIPA #### [facility] [address] [address] [address] Toy Macario EGFR-AF FIJIAN >60 Normal >=60 [facility] Comment on above: Performed By: #### C MP, LIPA #### [facility] [address] [address] [address] Toy Macario EGFR-NON AF FIJIAN >60 Normal >=60 [facility] Comment on above: Performed By: #### C MP, LIPA #### [facility] [address] [address] [address] Toy Macario Globulin (S) [Mass/Vol] 3.9 g/dL Normal [facility] Comment on above: Performed By: #### C MP, LIPA #### [facility] [address] [address] [address] Toy Macario Glucose [Mass/Vol] 168 mg/dL Critically high 74-[address] [facility] Comment on above: Performed By: #### C MP, LIPA #### [facility] [address] [address] [address] Toy Macario Potassium [Moles/Vol] 4.3 mmol/L Normal 3.4-5.0 [facility] Comment on above: Performed By: #### C MP, LIPA #### [facility] [address] [address] [address] Toy Macario Protein [Mass/Vol] 7.2 g/dL Normal 6.1-8.2 [facility] Comment on above: Performed By: #### C MP, LIPA #### [facility] [address] [address] [address] Toy Macario Sodium [Moles/Vol] 140 mmol/L Normal 137-145 [facility] Comment on above: Performed By: #### C MP, LIPA #### [facility] [address] [address] [address] Toy Macario Urea nitrogen [Mass/Vol] 8.0 mg/dL Normal 7.0-17.0 [facility] Comment on above: Performed By: #### C LESLIE, LIPA #### [facility] [address] [place] [address] Dr. Toy Macario Urea nitrogen/Creatinine [Mass ratio] 8.7 mg/mg Normal [facility] Comment on above: Performed By: #### C MP, LIPA #### [facility] [address] [place] [address] Dr. Toy Macario URINE MICROSCOPIC ONLYon BACTERIA MODERATE Abnormal NONE SEEN [facility] Comment on above: Performed By: #### C VDTBH #### [facility] [address] [place] [address] Dr. Toy Macario Bacteria identified Cx Nom (U) INDICATED Normal [facility] Comment on above: Performed By: #### C VDTBH #### [facility] [address] [place] [address] Dr. Toy Macario CAST NONE SEEN Normal NONE SEEN [facility] Comment on above: Performed By: #### C VDTBH #### [facility] [address] [place] [address] Dr. Toy Macario Crystals LM Nom (Urine sed) NONE SEEN Normal NONE SEEN [facility] Comment on above: Performed By: #### C VDTBH #### [facility] [address] [place] [address] Dr. Toy Macario Epithelial cells LM Ql (Urine sed) MODERATE Abnormal NONE SEEN /RARE [facility] Comment on above: Performed By: #### C VDTBH #### [facility] [address] [place] [address] Dr. Toy Macario MUCOUS MODERATE Abnormal NONE SEEN [facility] Comment on above: Performed By: #### C VDTBH #### [facility] [address] [place] [address] Dr. Toy Macario RBC 5-10 Abnormal 0-2 [facility] Comment on above: Performed By: #### C VDTBH #### [facility] [address] [place] [address] Dr. Toy Macario WBC 10-20 Abnormal NONE SEEN [facility] Comment on above: Performed By: #### C [facility] #### [facility] [address] [place] [address] Dr. Toy Macario Coding Summaryon 09-18-2020 Coding Summary HTMLBase 64 CsqdydalNDu8gQy+PGhlYW Q+WD7XKLXzR71fgFAbvA6I G8oNEN4VCRDBEYGSIB7RJU 4vjFZ4RSqpH4HbuoJx XfhwhKVrLG92ODb4VKL5sI yjIOunrV3caICwX1w0QqQq NA72sR72AVysFTZvOyP7Du ZpbjsgbWFy F0klKkPwdSSeUqr+PHRhYm xlIHdpZHRoPScxMDAlJyBz dHyeKC6mJa4cYTNdVQUuhA xhcHNlOiBj c1svZGAzEDtyCJ1aoZiqU1 JgsUD4TTJtb8d0Lb67fFQ+ JGHoIQW5eLnoNLhme735Qr Rwn6muKUS6 qMMbXUiwHOC5V94sv3N7ER VyIHEfJBE9oBR4iI2yuQyl yqorQ9KbyGWoCgL8JFP1sK MlsR2ktTes flrqyZ0yBwu+G69QHN1NDD ZLVK0XDki0W5LhXyautAF+ ZI07HVTbAC39pMAkiAVai1 ujvMj5VqSa GDDzMSS3fKqkYUran4VeFD TbF86noXNzw4Z4BQKnmVca dBOyDwXzpXU4jT9gQMmawd leu7jnhyql Gwkdg6kozu86tF39Y47qXV jfYIBsETP1JFKiZNHuuSjb db6rbQ1nHk5+QIqfd2cqz7 axfVc7JqBt JBIujnEwlSbeEFS3p2MzKq 71K3DzxQxlg1MsYkb8zn75 kPCzp1L2lMR2EEgwYFGcdL 7lOBzuPlD1 DIUqFcAahD92sQFzLRtwZw 7mmSyltZekSW5hDAMwipxv CLUpaV5mNQElqQNphGpjVB 4wNTBpbjtm q678LwLjDDF8GLCjqOOgD7 OusL6hVoUmWNEbDODgG2Rf qJXfHTfvF724UVwbPgE6AJ FariOhJ1Gv QMCteAdiPfP5h0N9Za1Hu0 SqexklVTZ7OUmcJTC7YfA5 OiXsSgH4V3UwHuf2JLNrxG zlRY2hX6Cn MXEfqkgftmhkzMP2DGMyBT SdhR53uMNfXBxqQg1sa6X3 p818GKGkZNMhdL05Nb6eaX ogMTBwdCBU rR4sqxkkl7ywsqrjHvEtKZ EzVHs4APe8AMYfdSvoVzUs JDN8DuY3RQW2dUConZ7zvJ ltpfchbK2p Oyc+L93niG8cLND7BXK8sy jzRFWaviYxOG02BX51M4Tm PjwvdGFibGU+PGRpdiBzdH ogVT5dBpMf c8nhp8PsJJfeO8QlUMAjHZ deIdq6XZWkTLL5bIZ7tS0g QHEjYBvrq1A9sIN4X4Unie Vanl3xq3py TIRyQEiaC29drBEfx1T0FL AphYN3BYXpqJweRiSueD61 Oyc+NFBomEdwg0JfNeget2 ugp6uhiKu4 ClOlTKCjowQmzQdyWKY7j5 DfOc77W62uJXdaHXRqUZFf OFPhTGJroHywcx7usE0oVg 8+PGNvbCB3 dMX2dL7hLHDxSzA1BOzwN9 44VtJhvKLvMecbj9tpd6jq yJt2FhTzQTBdmqFivMadAO I5t3HaZf47 X81sTKmrUUMvPPAuSABzHM MedDkooc2gxI8aEw8+PC9j v0fdwc91rV64hSL+PHRkIH O2tEquFSed DJAplD6zQLsgBnM2VMPjIh ZcdV70mARgFFbyFr5xgFba yCdnMG2aBTMucjyhq534Ih Ixx4jkYVUy vNDxHOhwUDI9C22sd0T4KB JkFCWxVIB9mJD9gD0ceSrn bjogbGVmdDsgdmVydGljYW zfQDomT999 IHRvcDsnPlBhdGllbnQgTm XmWXb3N8DiZop3BWDsvLyc RS3izAQjHKtmMy0hcQeliM sbFZ8pGNMr vlxvy675AbJyr9miWERmaS SgOIfwGSZ7Y87xg3G3TAOz DXEnLHV1zVA8cZ9tqPpjyj ogbGVmdDsg oeDfiFnoTIpiZIybE534KM RvcDsnPkJpcnRoIERhdGU6 PG18FF73vAZct7I5zHA1A1 BhZGRpbmct gxsmiBJ0OQKzAIBunR31Er 4pnGirPw8bDLFuNWB0WRPa mIKaR7DymL2dLuQuUVAuVU DxZ9MvrTBd SDexZ051AWvpOcO7NLPhwt MpA9OqDLYviWssTmD8n4Y1 Jw7NO3A4MS00UF57nKLmo1 A5dSI9N5Xk AZOxahifqvpamJG7XCLjHQ BpzW46Et8ueXawHl4rIMEm VJK6GNZaxEIdR2DndB7lYt AjMDAwMDAw T6ScoYNqMCroH184CNzoZd R7BFHrmlOgQ9XgXYYgcAle ExV7z3E0Yb5DTOs2SZ51UU 57yHKkb9R1 sLW8D7BsMVVenuhqvnlkfY I7HNQmLWDzzU00La8stArg It8dSVRuIHB4HSMuhIJoK5 IgrR8uBpBg QYEwORInL4YvbNXkJEnwE5 28HQkrGcL1LJEhfhDgU8Ys AFFwgCcjJrN9r9Z6Wx1TSS BoYJ92CKO6 iUO3KT11WP15I9BuNqajlI FibGU+PHRhYmxlIHdpZHRo WNjgNMGvAnAgiEstPF2oDc 9yZGVyLWNv ePzgiQVeZvPxq1jmMEJoEB auAH6wkMuzW0VepIV8YBRp v6r3Jt54L44lL2CmrMJ+PG HgtZF7sJO2 fE1cAxJwBjY5FPyiD368Ov KawSTsTxyoi6afj0belRb6 UfO5SOLlezGldQcjBHQ4n1 StZs71G70q IHdpZHRoPSIxNSUiIHZhbG pqwk8zcH9pKu3+PGNvbCB3 zUK5iW1mTzPaMmP1NSxcY7 49InRvcCIv Kdknq7oka4bifRa0ItEzFW FfpoHamKluNES5p9IxZe86 C1YwcBbpc3XnGsa7np53oA Upw3B8qSP8 S6GoELWqppyosETtfXacTI 9qQMVmgirmBVUbmY4yFBQu W7t3OjIdFbV4DEokN3Babh R4NSYmbLSk VOlzYGA2H16ks0K0OGNlYU GqZWM1nQC5gD9roSflgwkj bGVmdDsgdmVydGljYWwtYW sjH180LKEx rYntYAVhzW2dRVDbqJCdoH feHC7nCBOoktabWjlUNn7T E2DWBPSCOAOIBBQ2O1CtOh d3VFLekHmo EC5tjVSfDIvfDi4djDistJ ahOB4nJOQipakvXFYteZ2y URXmqLUjdQwgBQ4lWBJuye hdx392LmZw WRA0SCWghDQlK2OrtZ2uJy SnPMQcNSGvB0ItjJVdKAet T574SScaYfA3WZJmujMjB2 FsLWFsaWdu NsY2u3M7Qr4xCD4oQT1jQV p5LR41CK19bIOtl6Q9kGJ2 F0KdSYKivcfyfioehNF7RV PzPXVonU86 wWRtSIlaBl7yf1P8w918NL YcXLPwmG81Do0blQbbZVPi hXZJiI1wjvabo1lywtkcDn AwMDAwMDt0 ZOb5ABLkgRqhMdPjSHR7Ye B6RAK8fSKtzE5cfZiyzzhi fY0zVuv+MLCgTHCelfC3E6 FzRxl4HVId sThbEW3xsEBuEJucMj3wnD wgwKblMZ5nYKAzytbiZFAk gD6lJCVfyXUljKxzJS8nCW Ybnxeqg334 PqKcXXC0NVBakLImR1HmwR 3qRfDjDVAcHRKsI4WesQCw LOveW677HWxgOjY1PXYoip OnQ4YqOKHt tIxrWmG3w0N6Tf3TWH6DZL S2V4DfScm3LBWweUbhHT1b cUXoOHduJq1vbEtwgWzeKN 4wNTBpbjtw NQXhzQ2gEUUaxPZegYrgML 0pASVlyksjq579RwTnDFV9 IXBtrZTyQ2YrxA6xIyHlPG BxJWBqN3Xc rGRaCYdjE057EDkuQpJ0XK OtetXnS8XfPCTxyMetKmD4 v3Q7Uc7CqMUnKSOnFK11GU luIGEgQmVk EE56PL57Z3PuNworrUPuwT U+PHRhYmxlIHdpZHRoPScx ZDQyUnAbkGnqAN3yUi7rZA VyLWNvbGxh uZPmTgIfz1meDDNtFKvqHF 8yhRqmA3FogON0NVBoh2u6 Xz06L69eB7CscGY+PGNvbC C1jKD2fA9w IfKjFdT2CExmR873RwZwgQ NhFcuef0wfj5btuBj2ZoLj AAJwrpNqsUndSMA6q6HuXa 91I21oMZxf ZHRoPSIyMCUiIHZhbGlnbj 8gqU3tBs5+SLPhjXU2yDQ0 dE2hJbYsHyZ5ZNkgD105Yl RvcCIvPjwv J22tM5XfmOU+YQNrVhq8TW YrvEevFB6erSDdPUxzPb6b CLD8IsNbHtJuPXpzZ3RxWZ Rpbmctcmln uJT2SBXkBTOuvX35Qy3ynN tePs3kWTXpQMB3CULnkFVw P4GrwE6hPkLmSQJdRCCjQ2 RleHQtYWxp H808HTykErY7RGTyupAnW3 MbJYArbYbdQbD1p0X3Gj0T hTucrLZiHL1jFsNqDPc9L6 AxSly4PVSi wUexYQ7bsXPwYBcaJz6waM ecrMjyUF5yNDNbrasuw264 YfJjk2axURHdeDDgTEcoCZ D5F85ze4R9 WVLoPIJqCTO5wVR4wX8cvB lnbjogbGVmdDsgdmVydGlj IMmqTBmpG785DEBhoPgmQy JSXyd9L1Oj Hrr9NWSiaUwdDO8rvMIwLM khWf3jyQnjwSkoCS6mEOZy ecyre029MgUcz2gaXMIxoB QgVGltZXM7 J38fc2D2SBIlRHCvHUO6uX D6lQ4dzXfilbwxhYUogHmw iaJodZsfXUnvYGylJ420EM EtdRauXv4Q Gcw8G8FcDdk5YRDfwJckAC 7fmDRhYSluSn3asRknyMrq WU6oAGXctnrmi990CuFlt5 xkIDEwcHQg ZHaaUOM5Y26bv8G6SJTuGO BmIFE4tMZ5lI9fmWuunjod bGVmdDsgdmVydGljYWwtYW pyB323EPRb cDsnPlBheWVyOjwvdGQ+PC 74jg57P2OjVgcpWym1GPMw LPT9tIN2zJ6aSMBsFMghl8 B5uFZ0C4Fd cmR (more content not included)... Normal [facility] Consultation/Specialist Note on 09-16-2020 Consultation/Specialist Note HOME SLEEP STUDY DATE OF STUDY: 09/10/2020 INDICATION FOR STUDY: Sleep apnea. Home sleep testing was performed without sleep staging but with continuous measurement of body position, oxygen saturations, heart rate, snore volumes, thoracic, abdominal movement and nasal flow. As sleep is not measured for iia-ph-dkeesi home testing index time consists of time [...] is advised. Uriel Stone M.D. JOB #: [id number] bk CC: Tamara Calero DO [Electronically Signed on: 09/16/2020 13:28 EDT] Uriel Stone MD [Verified on: 09/16/2020 13:28 EDT] Uriel Stone MD [Transcribed on: 09/16/2020 11:10 EDT] [facility] 09-16-2020 Sleep Study [id number]#1.0 [facility] Provider Orders [id number]#1.0 [facility] 08-28-2020 Provider Orders [id number]#1.0 [facility] 08-27-2020 Provider Orders [id number] [facility]B [facility] Detectionon 03-11 Flu A/B Ag Detection Specimen Descriptio n .NASOPHARYNGEAL SWABSpecial Requests NOT REPORTEDDirect Exam PRESUMPTIVE NEGATIVE for Influenza A + B antigens. PCR testing to confirm this result is available upon request. Specimen will be saved in the laboratory for 7 days. Please call [phone] if PCR testing is indicated. Report Status FINAL 03/11/2018 [facility] Comment on above: Performed By: #### F LUAD ####[facility] [place] [address] Vital Signs Date Time Vital Sign Value Performing Clinician Facility 07-06-2024 00:25-0400 Body height 167.64 cm Josette Mandel SEISMOGRAPH HELPER-C Work Phone: [facility] 07-06-2024 00:25-0400 Body temperature 97.7 [degF] Josette Mandel SEISMOGRAPH HELPER-C Work Phone: [facility] 07-06-2024 00:25-0400 Body weight 109.1 kg Josette Mandel SEISMOGRAPH HELPER-C Work Phone: [facility] 07-06-2024 00:25-0400 Diastolic blood pressure 55 mm[Hg] Josette Talaveramer SEISMOGRAPH HELPER-C Work Phone: [facility] 07-06-2024 00:25-0400 Heart rate 72 /min Josette Mandel SEISMOGRAPH HELPER-C Work Phone: [facility] 07-06-2024 00:25-0400 Respiratory rate 18 /min Josette Mandel SEISMOGRAPH HELPER-C Work Phone: [facility] 07-06-2024 00:25-0400 SaO2% (BldA) [Mass fraction] 98 % Josette Mandel SEISMOGRAPH HELPER-C Work Phone: [facility] 07-06-2024 00:25-0400 Systolic blood pressure 99 mm[Hg] Josette Mandel SEISMOGRAPH HELPER-C Work Phone: [facility] 06-25-2024 15:06-0400 Body height 167.64 cm Josette Mandel SEISMOGRAPH HELPER-C Work Phone: [facility] 06-25-2024 15:06-0400 Body mass index (BMI) [Ratio] 38.1 kg/m2 Josette Tequila SEISMOGRAPH HELPER-C Work Phone: [facility] 06-25-2024 15:06-0400 Body temperature 97.5 [degF] Josette Talaveramer SEISMOGRAPH HELPER-C Work Phone: [facility] 06-25-2024 15:06-0400 Body weight 107.27 kg Josette Talaveramer SEISMOGRAPH HELPER-C Work Phone: [facility] 06-25-2024 15:06-0400 Diastolic blood pressure 47 mm[Hg] Josette Mandel SEISMOGRAPH HELPER-C Work Phone: [facility] 06-25-2024 15:06-0400 Heart rate 84 /min Josette Mandel SEISMOGRAPH HELPER-C Work Phone: [facility] 06-25-2024 15:06-0400 Respiratory rate 20 /min Josette Talaveramer SEISMOGRAPH HELPER-C Work Phone: [facility] 06-25-2024 15:06-0400 SaO2% (BldA) [Mass fraction] 96 % Josette Talaveramer SEISMOGRAPH HELPER-C Work Phone: [facility] 06-25-2024 15:06-0400 Systolic blood pressure 85 mm[Hg] Josette Mandel SEISMOGRAPH HELPER-C Work Phone: [facility] 06-14-2024 07:30-0400 Body temperature 97.5 [degF] Tamara Calero DO Work Phone: [facility] 06-14-2024 07:30-0400 Diastolic blood pressure 70 mm[Hg] Tamara Calero DO Work Phone: [facility] 06-14-2024 07:30-0400 Heart rate 79 /min Tamara Calero DO Work Phone: [facility] 06-14-2024 07:30-0400 Respiratory rate 16 /min Tamara Whitei DO Work Phone: [facility] 06-14-2024 07:30-0400 SaO2% (BldA) [Mass fraction] 97 % Tamara Whitei DO Work Phone: [facility] 06-14-2024 07:30-0400 Systolic blood pressure 117 mm[Hg] Tamara Whitei DO Work Phone: [facility] 06-12-2024 12:34-0400 Body height 167.64 cm Tamara Whitei DO Work Phone: [facility] 06-11-2024 22:45-0400 Body weight 107 kg Tamara Calero DO Work Phone: [facility] 06-11-2024 16:48-0400 Body height 167.64 cm Tamara Calero DO Work Phone: [facility] 06-11-2024 16:48-0400 Body temperature 97.9 [degF] Tamara Whitei DO Work Phone: [facility] 06-11-2024 16:48-0400 Body weight 107 kg Tamara Calero DO Work Phone: [facility] 06-11-2024 16:48-0400 Diastolic blood pressure 72 mm[Hg] Tamara Whitei DO Work Phone: [facility] 06-11-2024 16:48-0400 Heart rate 106 /min Tamara Whitei DO Work Phone: [facility] 06-11-2024 16:48-0400 Respiratory rate 18 /min Tamara Whitei DO Work Phone: [facility] 06-11-2024 16:48-0400 SaO2% (BldA) [Mass fraction] 96 % Tamara Calero DO Work Phone: [facility] 06-11-2024 16:48-0400 Systolic blood pressure 131 mm[Hg] Tamara Calero DO Work Phone: [facility] 03-31-2024 12:25-0500 Body height 167.64 cm Tamara Calero DO Work Phone: [facility] 03-31-2024 12:25-0500 Body mass index (BMI) [Ratio] 39.7 kg/m2 Tamara Calero DO Work Phone: [facility] 03-31-2024 12:25-0500 Body temperature 98.6 [degF] Tamara Calero DO Work Phone: [facility] 03-31-2024 12:25-0500 Body weight 111.78 kg Tamara Calero DO Work Phone: [facility] 03-31-2024 12:25-0500 Diastolic blood pressure 69 mm[Hg] Tamara Calero DO Work Phone: [facility] 03-31-2024 12:25-0500 Heart rate 90 /min Tamara Calero DO Work Phone: [facility] 03-31-2024 12:25-0500 Respiratory rate 18 /min Tamara Calero DO Work Phone: [facility] 03-31-2024 12:25-0500 SaO2% (BldA) [Mass fraction] 93 % Tamara Calero DO Work Phone: [facility] 03-31-2024 12:25-0500 Systolic blood pressure 113 mm[Hg] Tamara Calero DO Work Phone: [facility] 03-07-2024 10:01-0500 Body height 167 cm Stephanie Webster MD Work Phone: [facility] 03-07-2024 10:01-0500 Body mass index (BMI) [Ratio] 39.85 kg/m2 Stephanie Webster MD Work Phone: [facility] 03-07-2024 10:01-0500 Body temperature 97 [degF] Stephanie Webster MD Work Phone: [facility] 03-07-2024 10:01-0500 Body weight 111.13 kg Stephanie Webster MD Work Phone: [facility] 03-07-2024 10:01-0500 Diastolic blood pressure 88 mm[Hg] Stephanie Webster MD Work Phone: [facility] 03-07-2024 10:01-0500 Heart rate 61 /min Stephanie Webster MD Work Phone: [facility] 03-07-2024 10:01-0500 Respiratory rate 20 /min Stephanie Webster MD Work Phone: [facility] 03-07-2024 10:01-0500 SaO2% (BldA) [Mass fraction] 92 % Stephanie Webster MD Work Phone: [facility] 03-07-2024 10:01-0500 Systolic blood pressure 156 mm[Hg] Stephanie Webster MD Work Phone: [facility] 02-12-2024 15:53-0500 Diastolic blood pressure 52 mm[Hg] Tamara Calero DO Work Phone: [facility] 02-12-2024 15:53-0500 Systolic blood pressure 83 mm[Hg] Tamara Calero DO Work Phone: [facility] 02-12-2024 15:53-0500 Body height 167.64 cm Tamara Calero DO Work Phone: [facility] 02-12-2024 15:53-0500 Body mass index (BMI) [Ratio] 39 kg/m2 Tamara Calero DO Work Phone: [facility] 02-12-2024 15:53-0500 Body temperature 97.3 [degF] Tamara Calero DO Work Phone: [facility] 02-12-2024 15:53-0500 Body weight 109.76 kg Tamara Calero DO Work Phone: [facility] 02-12-2024 15:53-0500 Heart rate 85 /min Tamara Calero DO Work Phone: [facility] 02-12-2024 15:53-0500 Respiratory rate 18 /min Tamara Calero DO Work Phone: [facility] 02-12-2024 15:53-0500 SaO2% (BldA) [Mass fraction] 96 % Tamara Calero DO Work Phone: [facility] 11-30-2023 08:27-0400 Body height 167.6 cm Stephanie Webster MD Work Phone: [facility] 11-30-2023 08:27-0400 Body mass index (BMI) [Ratio] 39.54 kg/m2 Stephanie Webster MD Work Phone: [facility] [employer] [facility] 11-30-2023 08:27-0400 Body temperature 97.5 [degF] Stephanie Webster MD Work Phone: [facility] [employer] [facility] 11-30-2023 08:27-0400 Body weight 111.13 kg Stephanie Webster MD Work Phone: [facility] 11-30-2023 08:27-0400 Diastolic blood pressure 78 mm[Hg] Stephanie Webster MD Work Phone: [facility] [employer] [facility] 11-30-2023 08:27-0400 Heart rate 92 /min Stephanie Webster MD Work Phone: [facility] [employer] [facility] 11-30-2023 08:27-0400 Respiratory rate 18 /min Stephanie Webster MD Work Phone: [facility] 11-30-2023 08:27-0400 SaO2% (BldA) [Mass fraction] 97 % Stephanie Webster MD Work Phone: [facility] 11-30-2023 08:27-0400 Systolic blood pressure 130 mm[Hg] Stephanie Webster MD Work Phone: [facility] 11-14-2023 07:30-0400 Body temperature 97.7 [degF] SEISMOGRAPH HELPER-C Josette Tequila Work Phone: [facility] 11-14-2023 07:30-0400 Diastolic blood pressure 85 mm[Hg] SEISMOGRAPH HELPER-C Josette Tequila Work Phone: [facility] 11-14-2023 07:30-0400 Heart rate 85 /min SEISMOGRAPH HELPER-C Josette Tequila Work Phone: [facility] 11-14-2023 07:30-0400 Respiratory rate 18 /min SEISMOGRAPH HELPER-C Josette Tequila Work Phone: [facility] 11-14-2023 07:30-0400 SaO2% (BldA) [Mass fraction] 95 % SEISMOGRAPH HELPER-C Josette Tequila Work Phone: [facility] 11-14-2023 07:30-0400 Systolic blood pressure 122 mm[Hg] SEISMOGRAPH HELPER-C Josette Tequila Work Phone: [facility] 11-13-2023 08:42-0400 Body weight 108.5 kg SEISMOGRAPH HELPER-C Josette Tequila Work Phone: [facility] 11-09-2023 13:07-0400 Body height 167.64 cm SEISMOGRAPH HELPER-C Josette Tequila Work Phone: [facility] 11-08-2023 23:36-0400 Body temperature 98.1 [degF] SEISMOGRAPH HELPER-C Josette Tequila Work Phone: [facility] 11-08-2023 23:36-0400 Diastolic blood pressure 78 mm[Hg] SEISMOGRAPH HELPER-C Josette Tequila Work Phone: [facility] 11-08-2023 23:36-0400 Heart rate 75 /min SEISMOGRAPH HELPER-C Josette Tequila Work Phone: [facility] 11-08-2023 23:36-0400 Respiratory rate 20 /min SEISMOGRAPH HELPER-C Josette Tequila Work Phone: [facility] 11-08-2023 23:36-0400 SaO2% (BldA) [Mass fraction] 98 % SEISMOGRAPH HELPER[employer]C Josette Tequila Work Phone: [facility] 11-08-2023 23:36-0400 Systolic blood pressure 148 mm[Hg] SEISMOGRAPH HELPER-C Josette Tequila Work Phone: [facility] 11-08-2023 19:54-0400 Body height 167.64 cm SEISMOGRAPH HELPER-C Josette Tequila Work Phone: [facility] 11-08-2023 19:54-0400 Body weight 108.5 kg SEISMOGRAPH HELPER-C Josette Tequila Work Phone: [facility] 09-28-2023 13:36-0400 Body height 167.64 cm SEISMOGRAPH HELPER-C Josette Tequila Work Phone: [facility] 09-28-2023 13:36-0400 Body mass index (BMI) [Ratio] 36.8 kg/m2 SEISMOGRAPH HELPER[employer]C Josette Tequila Work Phone: [facility] 09-28-2023 13:36-0400 Body temperature 98 [degF] SEISMOGRAPH HELPER[employer]C Josette Tequila Work Phone: [facility] 09-28-2023 13:36-0400 Body weight 103.41 kg SEISMOGRAPH HELPER-C Josette Tequila Work Phone: [facility] 09-28-2023 13:36-0400 Diastolic blood pressure 67 mm[Hg] SEISMOGRAPH HELPER-C Josette Tequila Work Phone: [facility] 09-28-2023 13:36-0400 Heart rate 104 /min SEISMOGRAPH HELPER-C Josette Tequila Work Phone: [facility] 09-28-2023 13:36-0400 Respiratory rate 18 /min SEISMOGRAPH HELPER-C Josettecherri Talaveramer Work Phone: [facility] 09-28-2023 13:36-0400 SaO2% (BldA) [Mass fraction] 95 % SEISMOGRAPH HELPER-C Josettecherri Talaveramer Work Phone: [facility] 09-28-2023 13:36-0400 Systolic blood pressure 107 mm[Hg] SEISMOGRAPH HELPER-C Josette Tequila Work Phone: [facility] 08-31-2023 14:36-0400 Body height 167.64 cm SEISMOGRAPH HELPER-C Josette Tequila Work Phone: [facility] 08-31-2023 14:36-0400 Body mass index (BMI) [Ratio] 37.4 kg/m2 SEISMOGRAPH HELPER[employer]C Josettecherri Talaveramer Work Phone: [facility] 08-31-2023 14:36-0400 Body temperature 97.8 [degF] SEISMOGRAPH HELPER-C Josettecherri Talaveramer Work Phone: [facility] 08-31-2023 14:36-0400 Body weight 105.23 kg SEISMOGRAPH HELPER-C Josettecherri Talaveramer Work Phone: [facility] 08-31-2023 14:36-0400 Diastolic blood pressure 62 mm[Hg] SEISMOGRAPH HELPER-C Josettecherri Talaveramer Work Phone: [facility] 08-31-2023 14:36-0400 Heart rate 105 /min SEISMOGRAPH HELPER-C Josette Tequila Work Phone: [facility] 08-31-2023 14:36-0400 Respiratory rate 18 /min SEISMOGRAPH HELPER-C Josette Tequila Work Phone: [facility] 08-31-2023 14:36-0400 SaO2% (BldA) [Mass fraction] 95 % SEISMOGRAPH HELPER-C Josette Tequila Work Phone: [facility] 08-31-2023 14:36-0400 Systolic blood pressure 111 mm[Hg] SEISMOGRAPH HELPER-C Josette Tequila Work Phone: [facility] 08-31-2023 08:43-0400 Diastolic blood pressure 66 mm[Hg] Stephanie Webster MD Work Phone: [facility] 08-31-2023 08:43-0400 Systolic blood pressure 106 mm[Hg] Stephanie Webster MD Work Phone: [facility] 08-31-2023 08:35-0400 Body height 167.6 cm Stephanie Webster MD Work Phone: [facility] 08-31-2023 08:35-0400 Body mass index (BMI) [Ratio] 36.96 kg/m2 Stephanie Webster MD Work Phone: [facility] 08-31-2023 08:35-0400 Body weight 103.87 kg Stephanie Webster MD Work Phone: [facility] 08-31-2023 08:35-0400 Heart rate 111 /min Stephanie Webster MD Work Phone: [facility] 08-28-2023 12:39-0400 Body height 167.64 cm DO Tamara Warrencki Work Phone: [facility] 08-28-2023 12:39-0400 Body temperature 98.2 [degF] DO Tamara Brananthonycki Work Phone: [facility] 08-28-2023 12:39-0400 Body weight 103.3 kg DO Tamara Brananthonycki Work Phone: [facility] 08-28-2023 12:39-0400 Diastolic blood pressure 83 mm[Hg] DO Tamara Braniecki Work Phone: [facility] 08-28-2023 12:39-0400 Heart rate 99 /min DO Tamara Braniecki Work Phone: [facility] 08-28-2023 12:39-0400 Respiratory rate 20 /min DO Tamara Braniecki Work Phone: [facility] 08-28-2023 12:39-0400 SaO2% (BldA) [Mass fraction] 97 % DO Tamara Whitei Work Phone: [facility] 08-28-2023 12:39-0400 Systolic blood pressure 126 mm[Hg] DO Tamara Kelleycki Work Phone: [facility] 08-21-2023 17:24-0400 Body height 170.18 cm DO Tamara Whitei Work Phone: [facility] 08-21-2023 17:24-0400 Body mass index (BMI) [Ratio] 36.1 kg/m2 DO Tamara Whitei Work Phone: [facility] 08-21-2023 17:24-0400 Body temperature 97.8 [degF] DO Tamara Whitei Work Phone: [facility] 08-21-2023 17:24-0400 Body weight 104.49 kg DO Tamara Whitei Work Phone: [facility] 08-21-2023 17:24-0400 Diastolic blood pressure 67 mm[Hg] DO Tamara Whitei Work Phone: [facility] 08-21-2023 17:24-0400 Heart rate 80 /min DO Tamara Kelleycki Work Phone: [facility] 08-21-2023 17:24-0400 Respiratory rate 18 /min DO Tamara Kelleycki Work Phone: [facility] 08-21-2023 17:24-0400 SaO2% (BldA) [Mass fraction] 94 % DO Tamara Kelleycki Work Phone: [facility] 08-21-2023 17:24-0400 Systolic blood pressure 101 mm[Hg] DO Tamara Kelleycki Work Phone: [facility] 07-03-2023 10:45-0400 Body mass index (BMI) [Ratio] 37.22 kg/m2 Halina Lizarraga ENVIRONMENTAL SCIENCE PROFESSOR-CNM Work Phone: [facility] 07-03-2023 10:45-0400 Body weight 104.6 kg Halina Lizarraga ENVIRONMENTAL SCIENCE PROFESSOR-CNM Work Phone: [facility] 07-03-2023 10:45-0400 Diastolic blood pressure 78 mm[Hg] Halina Lizarraga ENVIRONMENTAL SCIENCE PROFESSOR-CNM Work Phone: [facility] 07-03-2023 10:45-0400 Systolic blood pressure 124 mm[Hg] Halina Lizarraga ENVIRONMENTAL SCIENCE PROFESSOR-CNM Work Phone: [facility] 05-18-2023 17:14-0400 Body height 167.6 cm Stephanie Webster MD Work Phone: [facility] 05-18-2023 17:14-0400 Body mass index (BMI) [Ratio] 35.67 kg/m2 Stephanie Webster MD Work Phone: [facility] 05-18-2023 17:14-0400 Body weight 100.25 kg Stephanie Webster MD Work Phone: [facility] 05-18-2023 17:14-0400 Diastolic blood pressure 70 mm[Hg] Stephanie Webster MD Work Phone: [facility] 05-18-2023 17:14-0400 Systolic blood pressure 130 mm[Hg] Stephanie Webster MD Work Phone: [facility] 04-24-2023 15:29-0500 Body height 170.18 cm DO Tamara Calero Work Phone: [facility] 04-24-2023 15:29-0500 Body mass index (BMI) [Ratio] 36.1 kg/m2 DO Tamara Calero Work Phone: [facility] 04-24-2023 15:29-0500 Body weight 104.77 kg DO Tamara Calero Work Phone: [facility] 04-24-2023 15:29-0500 Diastolic blood pressure 80 mm[Hg] DO Tamara Calero Work Phone: [facility] 04-24-2023 15:29-0500 Heart rate 84 /min DO Tamara Calero Work Phone: [facility] 04-24-2023 15:29-0500 Respiratory rate 14 /min DO Tamara Calero Work Phone: [facility] 04-24-2023 15:29-0500 SaO2% (BldA) [Mass fraction] 96 % DO Tamara Calero Work Phone: [facility] 04-24-2023 15:29-0500 Systolic blood pressure 123 mm[Hg] DO Tamara Calero Work Phone: [facility] 04-15-2023 10:20-0500 Body height 170.18 cm Priyanka Lemon Other [employer] [facility] [employer] Other 04-15-2023 10:20-0500 Body mass index (BMI) [Ratio] 36.33 kg/m2 Priyanka Lemon Other [employer] Other 04-15-2023 10:20-0500 Body temperature 98.5 [degF] Priyanka Lemon Other [employer] Other 04-15-2023 10:20-0500 Body weight 105.24 kg Priyanka Lemon Other [employer] Other 04-15-2023 10:20-0500 Diastolic blood pressure 102 mm[Hg] Priyanka Lemon Other [employer] Other 04-15-2023 10:20-0500 Respiratory rate 20 /min Priyanka Lemon Other [employer] Other 04-15-2023 10:20-0500 Systolic blood pressure 125 mm[Hg] Priyanka Lemon Other [employer] Other 02-24-2023 10:00-0500 Body height 170.18 cm Tamara Calero Other [facility] 02-24-2023 10:00-0500 Body mass index (BMI) [Ratio] 35.86 kg/m2 Tamara Calero Other [facility] [employer] Other 02-24-2023 10:00-0500 Body weight 103.87 kg Tamara Calero Other [facility] 02-24-2023 10:00-0500 Diastolic blood pressure 77 mm[Hg] Tamara Calero Other [facility] 02-24-2023 10:00-0500 Respiratory rate 20 /min Tamara Calero Other [place] [employer] Other 02-24-2023 10:00-0500 Systolic blood pressure 113 mm[Hg] Tamara Calero Other [facility] 12-20-2022 12:15-0400 Body height 170.18 cm Priyanka Lemon Other [employer] Other 12-20-2022 12:15-0400 Body mass index (BMI) [Ratio] 35.36 kg/m2 Priaynka Lemon Other [employer] Other 12-20-2022 12:15-0400 Body temperature 99.1 [degF] Priyanka Lemon Other [employer] Other 12-20-2022 12:15-0400 Body weight 102.42 kg Priyanka Lemon Other [employer] Other 12-20-2022 12:15-0400 Diastolic blood pressure 88 mm[Hg] Priyanka Lemon Other [employer] Other 12-20-2022 12:15-0400 Respiratory rate 18 /min Priyanka Lemon Other [employer] Other 12-20-2022 12:15-0400 SaO2% (BldA) [Mass fraction] 96 % Priyanka Lemon Other [employer] Other 12-20-2022 12:15-0400 Systolic blood pressure 133 mm[Hg] Priyanka Lemon Other [employer] Other 11-22-2022 14:30-0400 Body height 170.18 cm Tamara Pearsondalton Other [employer] Other 11-22-2022 14:30-0400 Body mass index (BMI) [Ratio] 35.86 kg/m2 Tamara Pearsondalton Other [employer] Other 11-22-2022 14:30-0400 Body weight 103.87 kg Tamara Kelleyjeannayesenia Other [employer] Other 11-22-2022 14:30-0400 Diastolic blood pressure 74 mm[Hg] Tamara Pearsondalton Other [employer] Other 11-22-2022 14:30-0400 Respiratory rate 18 /min Tamara Pearsondalton Other [employer] Other 11-22-2022 14:30-0400 SaO2% (BldA) [Mass fraction] 95 % Tamara Calero Other [employer] Other 11-22-2022 14:30-0400 Systolic blood pressure 114 mm[Hg] Tamara Calero Other [employer] Other 08-24-2022 14:00-0400 Body height 170.18 cm Tamara Calero Other [employer] Other 08-24-2022 14:00-0400 Body mass index (BMI) [Ratio] 35.39 kg/m2 Tamara Calero Other [employer] Other 08-24-2022 14:00-0400 Body temperature 99.2 [degF] Tamara Calero Other [employer] Other 08-24-2022 14:00-0400 Body weight 102.51 kg Tamara Calero Other [employer] Other 08-24-2022 14:00-0400 Diastolic blood pressure 74 mm[Hg] Tamara Calero Other [employer] Other 08-24-2022 14:00-0400 Respiratory rate 20 /min Tamara Calero Other [employer] Other 08-24-2022 14:00-0400 SaO2% (BldA) [Mass fraction] 94 % Tamara Calero Other [employer] Other 08-24-2022 14:00-0400 Systolic blood pressure 114 mm[Hg] Tamara Calero Other [employer] [facility] [employer] Other 05-24-2022 23:57-0400 Diastolic blood pressure 62 mm[Hg] DO Tamara Whitei Work Phone: [facility] 05-24-2022 23:57-0400 Heart rate 94 /min DO Tamara Calero Work Phone: [facility] 05-24-2022 23:57-0400 Respiratory rate 16 /min DO Tamara Calero Work Phone: [facility] 05-24-2022 23:57-0400 SaO2% (BldA) [Mass fraction] 97 % DO Tamara Calero Work Phone: [facility] 05-24-2022 23:57-0400 Systolic blood pressure 122 mm[Hg] DO Tamara Calero Work Phone: [facility] 05-24-2022 20:49-0400 Body height 167.64 cm DO Tamara Calero Work Phone: [facility] 05-24-2022 20:49-0400 Body temperature 98.8 [degF] DO Tamara Calero Work Phone: [facility] 05-24-2022 20:49-0400 Body weight 98.2 kg DO Tamara Calero Work Phone: [facility] 05-18-2022 17:00-0400 Body height 170.18 cm Tamara Calero Other [facility] [employer] Other 05-18-2022 17:00-0400 Body mass index (BMI) [Ratio] 33.67 kg/m2 Tamara Calero Other [employer] Other 05-18-2022 17:00-0400 Body weight 97.52 kg Tamara Calero Other [employer] Other 05-18-2022 17:00-0400 Diastolic blood pressure 82 mm[Hg] Tamara Calero Other [employer] Other 05-18-2022 17:00-0400 Respiratory rate 20 /min Tamara Calero Other [employer] Other 05-18-2022 17:00-0400 SaO2% (BldA) [Mass fraction] 97 % Tamara Calero Other [employer] Other 05-18-2022 17:00-0400 Systolic blood pressure 136 mm[Hg] Tamara Calero Other [facility] [employer] Other 05-15-2022 11:38-0400 Body temperature 97.6 [degF] DO Tamara Calero Work Phone: [facility] 05-15-2022 11:38-0400 Diastolic blood pressure 88 mm[Hg] DO Tamara Calero Work Phone: [facility] 05-15-2022 11:38-0400 Heart rate 73 /min DO Tamara Calero Work Phone: [facility] 05-15-2022 11:38-0400 SaO2% (BldA) [Mass fraction] 96 % DO Tamara Calero Work Phone: [facility] 05-15-2022 11:38-0400 Systolic blood pressure 133 mm[Hg] DO Tamara Calero Work Phone: [facility] 05-15-2022 07:46-0400 Respiratory rate 16 /min DO Tamara Braniecki Work Phone: [facility] 05-11-2022 14:05-0500 Body height 167.64 cm DO Tamara Braniecki Work Phone: [facility] 05-11-2022 00:58-0500 Body weight 94.34 kg DO Tamara Braniecki Work Phone: [facility] 05-11-2022 00:00-0500 Diastolic blood pressure 82 mm[Hg] DO Tamara Braniecki Work Phone: [facility] 05-11-2022 00:00-0500 Heart rate 74 /min DO Tamara Braniecki Work Phone: [facility] 05-11-2022 00:00-0500 Respiratory rate 18 /min DO Tamara Brananthonycki Work Phone: [facility] 05-11-2022 00:00-0500 SaO2% (BldA) [Mass fraction] 96 % DO Tamara Brananthonycki Work Phone: [facility] 05-11-2022 00:00-0500 Systolic blood pressure 170 mm[Hg] DO Tamara Brananthonycki Work Phone: [facility] 05-10-2022 21:11-0500 Body height 167.64 cm DO Tamara Brananthonycki Work Phone: [facility] 05-10-2022 21:11-0500 Body temperature 98.5 [degF] DO Tamara Braniecki Work Phone: [facility] 05-10-2022 21:11-0500 Body weight 94.4 kg DO Tamara Braniecki Work Phone: [facility] 08-20-2021 12:30-0400 Body height 170.18 cm Tamara Kelleycki Other [employer] Other 08-20-2021 12:30-0400 Body mass index (BMI) [Ratio] 30.07 kg/m2 Tamara Calero Other [employer] Other 08-20-2021 12:30-0400 Body temperature 98.2 [degF] Tamara Calero Other [employer] Other 08-20-2021 12:30-0400 Body weight 87.09 kg Tamara Calero Other [employer] Other 08-20-2021 12:30-0400 Diastolic blood pressure 72 mm[Hg] Tamara Calero Other [employer] Other 08-20-2021 12:30-0400 Respiratory rate 18 /min Tamara Calero Other [employer] Other 08-20-2021 12:30-0400 SaO2% (BldA) [Mass fraction] 99 % Tamara Calero Other [employer] Other 08-20-2021 12:30-0400 Systolic blood pressure 118 mm[Hg] Tamara Calero Other [employer] Other 08-10-2021 14:48-0400 Body height 167.6 cm [facility] 08-10-2021 14:48-0400 Body mass index (BMI) [Ratio] 32.77 kg/m2 [facility] 08-10-2021 14:48-0400 Body temperature 97.7 [degF] [facility] 08-10-2021 14:48-0400 Body weight 92.08 kg [facility] 08-10-2021 14:48-0400 Diastolic blood pressure 62 mm[Hg] [facility] 08-10-2021 14:48-0400 Heart rate 81 /min [facility] 08-10-2021 14:48-0400 Respiratory rate 16 /min [facility] 08-10-2021 14:48-0400 SaO2% (BldA) [Mass fraction] 100 % [facility] 08-10-2021 14:48-0400 Systolic blood pressure 138 mm[Hg] [facility] 08-04-2021 05:03-0400 Body temperature 98.49 [degF] Dennis Sarmiento MD Work Phone: [facility] 08-04-2021 05:03-0400 Diastolic blood pressure 48 mm[Hg] Dennis Sarmiento MD Work Phone: [facility] 08-04-2021 05:03-0400 Heart rate 70 /min Dennis Sarmiento MD Work Phone: [facility] 08-04-2021 05:03-0400 Respiratory rate 16 /min Dennis Sarmiento MD Work Phone: [facility] 08-04-2021 05:03-0400 SaO2% (BldA) [Mass fraction] 97 % Dennis Sarmiento MD Work Phone: [facility] 08-04-2021 05:03-0400 Systolic blood pressure 110 mm[Hg] Dennis Sarmiento MD Work Phone: [facility] 07-31-2021 02:14-0400 Body height 177.8 cm Dennis Sarmiento MD Work Phone: [facility] 07-31-2021 02:14-0400 Body mass index (BMI) [Ratio] 30.42 kg/m2 Dennis Sarmiento MD Work Phone: [facility] 07-31-2021 02:14-0400 Body weight 96.16 kg Dennis Sarmiento MD Work Phone: [facility] 07-31-2021 01:15-0400 SaO2% (BldA) [Mass fraction] 97.8 % Dennis Sarmiento MD [facility]: [email or web address] 07-30-2021 20:20-0400 SaO2% (BldA) [Mass fraction] 98.6 % Dennis Sarmiento MD Work [facility]: [email or web address] 07-30-2021 17:53-0400 SaO2% (BldA) [Mass fraction] 98.5 % Dennis Sarmiento MD Work Phone: [employer] 07-30-2021 17:00-0400 SaO2% (BldA) [Mass fraction] 98.1 % Dennis Sarmiento MD Work [facility]: [email or web address] [employer] 07-15-2021 12:58-0400 Body height 179.1 cm Marcella Luevano APRN-SAP SPECIALIST Work Phone: [employer] 07-15-2021 12:58-0400 Body mass index (BMI) [Ratio] 29.99 kg/m2 Marcella Luevano APRN-SAP SPECIALIST Work Phone: [employer] 07-15-2021 12:58-0400 Body temperature 97 [degF] Marcella Luevano APRN-SAP SPECIALIST Work Phone: [employer] 07-15-2021 12:58-0400 Body weight 96.16 kg Marcella Luevano APRN-SAP SPECIALIST Work Phone: [employer] 07-15-2021 12:58-0400 Diastolic blood pressure 62 mm[Hg] Marcella Luevano APRN-SAP SPECIALIST Work Phone: [employer] 07-15-2021 12:58-0400 Heart rate 75 /min Marcella Luevano APRN-SAP SPECIALIST Work Phone: [employer] 07-15-2021 12:58-0400 Respiratory rate 16 /min Marcella Luevano APRN-SAP SPECIALIST Work Phone: [employer] 07-15-2021 12:58-0400 SaO2% (BldA) [Mass fraction] 96 % Marcella Luevano ENVIRONMENTAL SCIENCE PROFESSOR-SAP SPECIALIST Work Phone: [employer] 07-15-2021 12:58-0400 Systolic blood pressure 117 mm[Hg] Marcella Luevano ENVIRONMENTAL SCIENCE PROFESSOR-SAP SPECIALIST Work Phone: [employer] 06-16-2021 11:35-0400 Diastolic blood pressure 77 mm[Hg] Leobardo Barry MD Work Phone: [employer] 06-16-2021 11:35-0400 Heart rate 73 /min eLobardo Barry MD Work Phone: [employer] 06-16-2021 11:35-0400 Respiratory rate 12 /min Leobardo Barry MD Work Phone: [employer] 06-16-2021 11:35-0400 SaO2% (BldA) [Mass fraction] 99 % Leobardo Barry MD Work Phone: [employer] 06-16-2021 11:35-0400 Systolic blood pressure 117 mm[Hg] Leobardo Barry MD Work Phone: [employer] 06-16-2021 11:05-0400 Body temperature 97.2 [degF] Leobardo Barry MD Work Phone: [employer] 06-11-2021 14:04-0400 Body height 168.9 cm Leigh Ann Teagan ENVIRONMENTAL SCIENCE PROFESSOR-SAP SPECIALIST Work Phone: [employer] 06-11-2021 14:04-0400 Body mass index (BMI) [Ratio] 33.39 kg/m2 Leigh Ann Candelaria ENVIRONMENTAL SCIENCE PROFESSOR-SAP SPECIALIST Work Phone: [employer] 06-11-2021 14:04-0400 Body weight 95.25 kg Leigh Ann Candelaria ENVIRONMENTAL SCIENCE PROFESSOR-SAP SPECIALIST Work Phone: [employer] 06-07-2021 11:45-0400 Body height 170.18 cm Tamara Calero Other [employer] Other 06-07-2021 11:45-0400 Body mass index (BMI) [Ratio] 32.57 kg/m2 Tamara Calero Other [employer] Other 06-07-2021 11:45-0400 Body weight 94.35 kg Tamara Calero Other [employer] Other 06-07-2021 11:45-0400 Diastolic blood pressure 69 mm[Hg] Tamara Calero Other [employer] Other 06-07-2021 11:45-0400 Respiratory rate 18 /min Tamara Calero Other [employer] Other 06-07-2021 11:45-0400 SaO2% (BldA) [Mass fraction] 98 % Tamara Calero Other [employer] Other 06-07-2021 11:45-0400 Systolic blood pressure 113 mm[Hg] Tamara Calero Other [employer] Other Encounters Encounter Date Encounter Type Care Provider Facility Start: 10-30-2024 ambulatory Tamara Calero Facil ity:[facility] Start: 08-10-2024 End: 08-10-2024 Letter encounter Dennis Sarmiento MD Work Phone: [facility] Start: 08-06-2024 End: 08-06-[address] [facility] Start: 07-06-2024 End: 07-06-2024 Emergency department patient visit Josette OSEI Work Phone: [facility] Work Phone: Start: 06-26-2024 Registered Recurring Josette olmedo SEISMOGRAPH HELPER-C Work Phone: [facility] Start: 06-25-2024 End: 06-25-2024 ambulatory Josette Mandel SEISMOGRAPH HELPER-C Work Phone: [facility] Work Phone: Start: 06-25-2024 End: 06-25-2024 Patient encounter procedure Josette Mandle SEISMOGRAPH HELPER-C Work Phone: [facility] Work Phone: Start: 06-19-2024 End: 06-19-2024 Refill Stephanie Webster MD Work Phone: [facility] Start: 06-19-2024 Registered Recurring Josette olmedo SEISMOGRAPH HELPER-C Work Phone: [facility] Start: 06-12-2024 Non-patient / Non-visit Stanford Calero DO Work Phone: [facility] Work Phone: Start: 06-11-2024 End: 06-14-2024 Evaluation and management of inpatient Tamara Abdias DO Work Phone: [address] Work Phone: Start: 06-11-2024 End: 06-11-2024 ambulatory CORNELL RODRIGUEZ [facility] Start: 06-05-2024 Registered Recurring Tamara peoples DO Work Phone: [facility] Start: 05-25-2024 Evaluation and management of inpatient VIRA [facility] Start: 05-24-2024 Evaluation and management of inpatient VIRA [facility] Start: 05-24-2024 End: 05-25-2024 Evaluation and management of inpatient PAT CALLAHAN [facility] Start: 05-04-2024 End: 05-04-2024 Letter encounter Dennis Sarmiento MD Work Phone: [facility] Start: 03-31-2024 End: 03-31-2024 ambulatory Tamara Calero DO Work Phone: [facility] Work Phone: Start: 03-31-2024 End: 03-31-2024 Patient encounter procedure Tamara Calero DO Work Phone: [facility] Work Phone: Start: 03-15-2024 End: 03-15-2024 [facility] Start: 03-14-2024 Registered Recurring Tamara Tracey richelle DO Work Phone: [facility] Start: 03-07-2024 End: 03-07-2024 Office outpatient visit 25 minutes Stephanie Webster MD Work Phone: [facility] Comment on above: Cigarette smoker mot ivated to quit (Primary Dx); Severe claudication (CMS-HCC); 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) Start: 02-12-2024 End: 02-12-2024 Patient encounter procedure Tamara Calero DO Work Phone: [facility] Work Phone: Start: 11-30-2023 End: 11-30-2023 Office outpatient visit 25 minutes Stephanie Webster MD Work Phone: [facility] Comment on above: Cigarette smoker mot ivated to quit (Primary Dx); Claudication (CMS-HCC) Start: 11-09-2023 Non-patient / Non-visit SEISMOGRAPH HELPER-C Leeroy Mandel Work Phone: [facility] Work Phone: Start: 11-08-2023 End: 11-14-2023 Evaluation and management of inpatient SEISMOGRAPH HELPER-C Josette Mandel Work Phone: [address] Work Phone: Start: 11-08-2023 Registered Recurring SEISMOGRAPH HELPER-C Anika la Tequila Work Phone: [facility] Start: 10-25-2023 Registered Recurring SEISMOGRAPH HELPER-C Anika la Tequila Work Phone: [facility] Start: 09-28-2023 End: 09-28-2023 ambulatory SEISMOGRAPH HELPER-C Josette Racheal Tequila Work Phone: [facility] Work Phone: Start: 09-28-2023 End: 09-28-2023 Patient encounter procedure SEISMOGRAPH HELPER-C Josette Tequila Work Phone: [facility] Work Phone: Start: 09-27-2023 Registered Recurring SEISMOGRAPH HELPER-C Anika la Tequila Work Phone: [facility] Start: 08-31-2023 End: 08-31-2023 ambulatory SEISMOGRAPH HELPER-C Josette Racheal Tequila Work Phone: [facility] Work Phone: Start: 08-31-2023 End: 08-31-2023 Patient encounter procedure SEISMOGRAPH HELPER-C Josette Tequila Work Phone: [facility] Work Phone: Start: 08-31-2023 End: 08-31-2023 Office outpatient new 45 minutes Stephanie Webster MD Work Phone: [facility] V[facility] Surgery [facility]ound [facility] Comment on above: Severe claudication (CMS-HCC) (Primary Dx); Cigarette smoker motivated to quit Start: 08-31-2023 End: 08-31-2023 ambulatory STEPHANIE WEBSTER [facility] Start: 08-30-2023 Registered Recurring SEISMOGRAPH HELPER-C Anika la Tequila Work Phone: [facility] Start: 08-28-2023 End: 08-28-2023 Emergency department patient visit DO Tamara Calero Work Phone: [facility] Work Phone: Start: 08-21-2023 End: 08-21-2023 ambulatory DO Tamara Calero Work Phone: [facility] Work Phone: Start: 08-21-2023 End: 08-21-2023 Patient encounter procedure DO Tamara Calero Work Phone: [facility] Work Phone: Start: 08-03-2023 Registered Recurring DO Stanford Calero Work Phone: [facility] Start: 07-03-2023 End: 07-03-2023 Patient encounter procedure Halina Lizarraga APRN-CNM Work Phone: [facility] Start: 07-03-2023 End: 07-03-2023 Periodic preventive med est patient 40-64yrs Halina Lizarraga ENVIRONMENTAL SCIENCE PROFESSOR-CNM Work Phone: [facility] Obstetrics/Gynecology Comment on above: Well woman exam with routine gynecological exam (Primary Dx); Encounter for screening mammogram for malignant neoplasm of breast Start: 07-03-2023 End: 07-03-2023 ambulatory TAMARA CALERO [facility] Start: 07-03-2023 Encounter for gynecological examination (general) (routine) without abnormal findings 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) Start: 04-24-2023 End: 04-24-2023 ambulatory DO Tamara Calero Work Phone: [facility] Work Phone: Start: 04-24-2023 End: 04-24-2023 Patient encounter procedure DO Tamara Calero Work Phone: [facility] Work Phone: Start: 04-15-2023 End: 04-15-2023 ambulatory Priyanka Lemon Other [employer] Other Start: 04-15-2023 Office outpatient vi sit 15 minutes Priyanka Lemon [facility] Start: 02-24-2023 End: 02-24-2023 ambulatory Tamara Calero Other [employer] Other Start: 02-24-2023 Office outpatient vi sit 25 minutes Tamara Calero [facility] Start: 02-24-2023 End: 02-24-2023 Patient encounter procedure DO Tamara Calero Work Phone: [facility] Work Phone: Start: 02-01-2023 Registered Recurring DO Stanford rai Michelanthonyjeannayesenia Work Phone: [facility] Start: 12-20-2022 End: 12-20-2022 ambulatory Priyanka Lemon Other [employer] Other Start: 12-20-2022 Office outpatient vi sit 25 minutes Priyanka Lemon [facility] Start: 12-05-2022 End: 12-05-2022 ambulatory Tamara Calero Other [employer] Other Start: 12-05-2022 Telephone encounter Tamara White i [employer] Start: 11-22-2022 End: 11-22-2022 ambulatory Tamara Calero Other [employer] Other Start: 11-22-2022 Office outpatient vi sit 25 minutes Tamara Calero [facility] Start: 11-14-2022 End: 11-14-2022 ambulatory Tamara Calero Other [employer] Other Start: 11-14-2022 Telephone encounter Tamara White i [facility] Start: 11-02-2022 End: 11-02-2022 ambulatory Tamara Calero Other [employer] Other Start: 11-02-2022 Telephone encounter Tamara White i [facility] Start: 08-24-2022 End: 08-24-2022 ambulatory Tamara Calero Other [employer] Other Start: 08-24-2022 Encounter for other specified special examinations Tamara Calero [facility] Start: 08-24-2022 Periodic preventive med est patient 40-64yrs Tamara Calero [facility] Start: 08-02-2022 Letter encounter Dennis godoy MD Work Phone: [facility] Start: 05-30-2022 End: 05-30-2022 ambulatory Tamara Calero Other [employer] Other Start: 05-30-2022 Telephone encounter Tamara White i [facility] Start: 05-24-2022 Evaluation and management of inpatient DO Tamara Calero Work Phone: [facility] Work Phone: Start: 05-24-2022 End: 05-24-2022 ambulatory Tamara Calero Other [employer] Other Start: 05-24-2022 Telephone encounter Tamara White i [facility] Start: 05-18-2022 End: 05-18-2022 ambulatory Tamara Calero Other [employer] Other Start: 05-18-2022 Office outpatient vi sit 25 minutes Tamara Calero [facility] Start: 05-11-2022 End: 05-11-2022 ambulatory Tamara Calero Other [employer] Other Start: 05-11-2022 Telephone encounter Tamara White i [facility] Start: 05-10-2022 End: 05-15-2022 Evaluation and management of inpatient DO Tamara Calero Work Phone: [facility] Work Phone: Start: 05-05-2022 Letter encounter Dennis godoy MD Work Phone: [facility] Start: 03-15-2022 End: 03-15-2022 ambulatory Tamara Calero Other [place] [employer] Other Start: 03-15-2022 Office outpatient vi sit 15 minutes Tamara Calero [facility] Start: 03-13-2022 End: 03-13-[address] DOCTOR ELKINS Facility: Start: 02-14-2022 End: 02-14-2022 Telemedicine consultation with patient Dennis Sarmiento MD [facility]: [facility] Comment on above: NO SHOW (Primary Dx) Start: 02-14-2022 ambulatory DENNIS SHEA Facil ity:[facility] Start: 02-01-2022 Letter encounter Dennis godoy MD Work Phone: [facility] Start: 11-15-2021 End: 11-15-2021 ambulatory Tamara Calero Other [employer] Other Start: 11-15-2021 Telephone encounter Tamara White i [facility] Start: 09-02-2021 ambulatory Nicole Garcia RN [facility] Oncology Surgical Start: 09-02-2021 Documentation procedure Nicole byers RN [facility] Oncology Surgical Start: 08-24-2021 End: 08-25-2021 ambulatory SELF PATIENT Facility:[facility] Start: 08-20-2021 End: 08-20-2021 ambulatory Tamara Calero Other [employer] [facility] [employer] Other Start: 08-20-2021 Encounter for genera l adult medical examination without abnormal findings Tamara Whiteyesenia [facility] Start: 08-20-2021 Periodic preventive med est patient 40-64yrs Tamara Calero [facility] Start: 08-16-2021 End: 08-16-2021 Telemedicine consultation with patient Dennis Sarmiento MD Work Phone: [facility] Oncology Surgical Comment on above: Liver cyst (Primary Dx) Start: 08-16-2021 ambulatory JOHAN STEPHENS Facility: [facility] Start: 08-10-2021 End: 08-10-2021 Office outpatient visit 25 minutes Blue Surgery Resident [facility] Surgery General Comment on above: Postoperative follow -up (Primary Dx); Body mass index (BMI) 32.0-32.9, adult Start: 08-02-2021 Letter encounter Debo garza ENVIRONMENTAL SCIENCE PROFESSOR-SAP SPECIALIST Work Phone: [facility] Start: 08-01-2021 Letter encounter Debo garza ENVIRONMENTAL SCIENCE PROFESSOR-SAP SPECIALIST Work Phone: [facility] Surgery General Start: 07-30-2021 End: 07-30-2021 Subsequent hospital visit by physician Dennis Sarmiento MD Work Phone: [facility] Radiology Comment on above: Arrived Start: 07-30-2021 Letter encounter Debo garza ENVIRONMENTAL SCIENCE PROFESSOR-SAP SPECIALIST Work Phone: [facility] Radiology Start: 07-30-2021 End: 08-04-2021 Evaluation and management of inpatient Dennis Sarmiento MD Work Phone: Inpatient 8A Comment on above: Liver cyst (Primary Dx); Cyst of gallbladder; Postoperative pain Start: 07-16-2021 Telephone encounter Leandra Louis david formerly [facility] Work Phone: [facility] Comment on above: Anemia; Consult with specialist Start: 07-15-2021 End: 07-16-2021 Office outpatient new 45 minutes Marcella Luevano ENVIRONMENTAL SCIENCE PROFESSOR-SAP SPECIALIST Work Phone: [facility] Pre-Surgical Evaluation Comment on above: Preop testing (Prima ry Dx); Iron deficiency anemia, unspecified iron deficiency anemia type; Body mass index (BMI) 29.0-29.9, adult Start: 07-15-2021 End: 07-16-2021 Patient encounter status Marcella Luevano ENVIRONMENTAL SCIENCE PROFESSOR-SAP SPECIALIST Work Phone: [facility] Pre-Surgical Evaluation Start: 07-07-2021 Letter encounter Dennis nuñez MD Work Phone: [facility] Surgery General Start: 07-06-2021 [facility] Dennis Sarmiento MD Work Phone: [facility] Surgery General Start: 07-02-2021 End: 07-02-2021 ambulatory Tamara Calero Other [employer] Other Start: 07-02-2021 Telephone encounter Tamara [facility] Start: 06-16-2021 End: 06-16-2021 Subsequent hospital visit by physician Leobardo Barry MD Work Phone: [facility] Mult[facility]pecialty Endoscopy Suite Comment on above: Bile duct obstructio n; 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 Start: 06-14-2021 End: 06-15-[address] DOCTOR ELKINS Facility:[facility] Start: 06-11-2021 End: 06-11-2021 Telephone encounter Leigh Ann Candelaria SAMIRA Work Phone: [facility] Pre Surgical Evaluation Comment on above: Arrived Start: 06-07-2021 End: 06-07-2021 ambulatory Tamara Calero Other [employer] Other Start: 06-07-2021 Office outpatient vi sit 25 minutes Tamara Calero [facility] Start: 04-16-2021 End: 04-22-2021 Evaluation and management of inpatient DR DOCTOR ELKINS Facility:[facility] Start: 03-19-2021 End: 03-19-[address] DOCTOR ELKINS Facility:[facility] Start: 03-11-2018 End: 03-11-2018 Emergency department patient visit [facility] Procedures Date Procedure Procedure Detail Performing Clinician Start: 06-11-2024 Urine culture Tamara Calero DO Work Phone: Start: 11-08-2023 Urine culture SEISMOGRAPH HELPER-C Josette Mandel Work Phone: Start: 07-03-2023 Adult depression screening assessment Halina Lizarraga SIMBACNM Work Phone: Start: 06-24-2022 Mammography Stephanie Webster MD Work Phone: Start: 06-22-2022 Microscopic observation [Identifier] in Cervix by Cyto stain Stephanie Webster MD Work Phone: Start: 05-24-2022 SARS Antigen (LFIA) DO Tamara Christopheryesenia Work Phone: Start: 05-10-2022 Urine culture DO [...] 08-01-2021 Thromboplastin time partial plasma/whole blood Madeleine Amrit Hooks MD Work Phone: Start: 08-01-2021 Hepatic [...] MD Work Phone: Start: 07-30-2021 FFP Adrian COTTRELLVEHICLE TECHNICIAN Work Phone: Start: 07-30-2021 PLASMA STATUS Adrian Bermudez ENVIRONMENTAL SCIENCE PROFESSOR-VEHICLE TECHNICIAN Work Phone: Start: 07-30-2021 RED BLOOD CELL COMPONENT Adrian lopez ENVIRONMENTAL SCIENCE PROFESSOR-VEHICLE TECHNICIAN Work Phone: Start: 07-30-2021 RED BLOOD CELL UNIT STATUS Adrian calle ENVIRONMENTAL SCIENCE PROFESSOR-VEHICLE TECHNICIAN Work Phone: Start: 07-30-2021 End: 07-30-2021 Assay of lactate Adrian Bermudez ENVIRONMENTAL SCIENCE PROFESSOR-VEHICLE TECHNICIAN Work Phone: Start: 07-30-2021 End: 07-30-2021 Blood gases any combination ph pco2 po2 co2 hco3 Adrian Bermudez ENVIRONMENTAL SCIENCE PROFESSOR-VEHICLE TECHNICIAN Work Phone: Start: 07-30-2021 End: 07-30-2021 Carboxyhemoglobin measurement Felix Bermudez ENVIRONMENTAL SCIENCE PROFESSOR-VEHICLE TECHNICIAN Work Phone: Start: 07-30-2021 End: 07-30-2021 Transfusion of packed red blood cells Adrian Bermudez ENVIRONMENTAL SCIENCE PROFESSOR-VEHICLE TECHNICIAN Work Phone: Start: 07-30-2021 Cul bact xcpt urine blood/stool aerobic isol Dennis Sarmiento MD Work Phone: Start: 07-30-2021 Cytology examination - general Dennis Sarmiento MD Work Phone: Start: 07-30-2021 RBC leukocytes reduced Adrian byers ENVIRONMENTAL SCIENCE PROFESSOR-VEHICLE TECHNICIAN Work Phone: Start: 07-30-2021 RED BLOOD CELL UNIT STATUS Adrian calle ENVIRONMENTAL SCIENCE PROFESSOR-VEHICLE TECHNICIAN Work Phone: Start: 07-30-2021 End: 07-30-2021 EXPLORATION, COMMON BILE DUCT Dennis Waldron MD Work Phone: Start: 07-30-2021 End: 07-30-2021 LAPAROSCOPY, DIAGNOSTIC Dennis godoy MD Work Phone: Start: 07-30-2021 Urine test visual color cmprsn cynthias Dennis Sarmiento MD Work Phone: Start: 07-30-2021 Blood typing, ABO, Rho(D) and RBC antibody screening Marcella Luevano [facility] Work Phone: Start: 07-15-2021 Assay of ferritin [facility]a [facility] Work Phone: Start: 06-16-2021 Ercp [...] Td Vaccines (2 - Td or Tdap) [facility] Start: 03-22-2029 [facility] Start: 01-29-2028 Shingles (RZV) Vaccine (1 of 2) Shingles (RZV) Vaccine (1 of 2) [facility] Start: 02-08-2026 Lipid panel Cholesterol [facility] Start: 06-22-2025 Screening for malignant neoplasm of cervix Pap Smear [facility] Start: 03-07-2025 Adult BMI Screening Adult BMI Screening [facility] Start: 03-07-2025 End: 03-07-2025 US.doppler Extremity arteries - bilateral for physiologic artery study Vas art doppler lwr bilat mult lev/PVR Vascular Ultrasound Routine Cigarette smoker motivated to quit Severe claudication (CMS-HCC) 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) Expected: 03/07/2025 (Approximate), Expires: 03/07/2025 [facility] Work Phone: Comment on above: Expected: 03/07/2025 (Approximate), Expi res: 03/07/2025 Start: 12-04-2024 Influenza vaccination Influenza Vaccine (#1) [facility] Start: 11-29-2024 Adult BMI Screening Adult [facility] Screening [facility] Start: 11-29-2024 Tobacco Screening Tobacco Screening [facility] Start: 11-04-2024 COVID-19 Vaccine ( season) COVID-19 Vaccine () [facility] Start: 11-04-2024 Influenza vaccination Influenza Vaccine [facility] Start: 08-30-2024 Adult BMI Screening Adult BMI Screening [facility] Start: 08-30-2024 Tobacco Screening Tobacco Screening [facility] Start: 07-02-2024 Adult BMI Follow Up Plan Adult BMI Follow Up Plan [facility] Start: 07-02-2024 Adult BMI Screening Adult BMI Screening [facility] Start: 07-02-2024 Depression Screening Depression Screening [facility] Start: 07-02-2024 Tobacco Screening Tobacco Screening [facility] Start: 06-14-2024 [facility] Start: 06-11-2024 Hospital admission [facility] Start: 06-11-2024 [facility] Start: 06-11-2024 Urine culture [facility] Start: 06-11-2024 Bacteria identified in Urine by Culture Urine Culture [facility] Start: 05-17-2024 Adult BMI Screening Adult BMI Screening [facility] Start: 02-29-2024 End: 02-29-2024 Patient encounter procedure 02/29/2024 8:30 AM EST Office Visit [facility] [address] [place] [phone] Stephanie Webster MD [address], [address] [address] [facility] Start: 11-30-2023 End: 11-30-2023 Patient encounter procedure 11/30/2023 8:30 AM EDT Office Visit [facility] [address] [place] [address] Stephanie Webster MD [address], [address] [address] [facility] Start: 11-14-2023 [facility] Start: 11-09-2023 Hospital admission [facility] Start: 11-08-2023 [facility] Start: 11-08-2023 Bacteria identified in Urine by Culture [facility] Start: 11-05-2023 COVID-19 Vaccine ( season) COVID-19 Vaccine () [facility] Start: 11-05-2023 Influenza vaccination Influenza Vaccine [facility] Start: 08-31-2023 End: 08-31-2023 Patient encounter procedure 08/31/2023 9:00 AM EDT Office Visit [facility] [address] [place] [address] Stephanie Webster MD [address], [address] [address] [facility] Start: 07-21-2023 Tobacco Screening Tobacco Screening [facility] [employer] [facility] Start: 07-03-2023 End: 08-30-2024 DBT Breast - bilateral screening Mammography screening bilateral with CAD Imaging Routine Encounter for screening mammogram for malignant neoplasm of breast Expected: 07/03/2023, Expires: 08/30/2024 [facility] [employer] [facility] Work Phone: Comment on above: Expected: 07/03/2023, Expires: Start: 06-25-2023 Screening for malignant neoplasm of breast [facility] [employer] [facility] Start: 06-23-2023 Adult BMI Follow Up Plan Adult BMI Follow Up Plan [employer] Start: 05-18-2023 End: 05-17-2024 US.doppler Extremity arteries - bilateral for physiologic artery study Vas art doppler lwr bilat mult lev/PVR Vascular Ultrasound Routine Abnormal CT scan Expected: 05/18/2023, Expires: 05/17/2024 [employer] Work Phone: Comment on above: Expected: 05/18/2023, Expires: Start: 2023 Screening for malignant neoplasm of colon [facility] Start: 11-04-2022 Influenza vaccination Influenza Vaccine [employer] [facility] Start: 08-03-2022 Basic metabolic 2000 panel - Serum or Plasma Basic Metabolic Panel [facility] Start: 08-03-2022 Creatinine measurement Basic Metabolic Panel [facility] Start: 08-02-2022 Basic metabolic 2000 panel - Serum or Plasma Basic Metabolic Panel [facility] Start: 08-01-2022 Basic metabolic 2000 panel - Serum or Plasma Basic Metabolic Panel [facility] Start: 07-31-2022 Basic metabolic 2000 panel - Serum or Plasma Basic Metabolic Panel [facility] Start: 05-25-2022 End: 05-25-2022 [facility] Start: 05-25-2022 Hospital admission [facility] Start: 05-15-2022 [facility] Start: 05-11-2022 [facility] Start: 05-11-2022 Hospital admission [facility] Start: 05-11-2022 [facility] Start: 05-10-2022 Bacteria identified in Urine by Culture Urine Culture [facility] Start: 04-28-2022 Basic metabolic 2000 panel - Serum or Plasma Basic Metabolic Panel [facility] Start: 04-23-2022 Hemoglobin A1c measurement Hemoglobin A1C [facility] Start: 02-14-2022 End: 02-14-2022 Telemedicine consultation with patient 02/14/2022 Telemedicine Oncology Surgery Dennis Sarmiento MD [address] [place] [id number] [facility] Oncology Surgical Start: 12-04-2021 Influenza vaccination Influenza Vaccine (#1) [facility] Start: 08-24-2021 End: 08-24-2021 Patient encounter procedure 08/24/2021 Office Visit General Surgery [facility] Surgery General Start: 08-16-2021 End: 08-16-2021 Evaluation and management of inpatient 08/16/2021 Telemedicine Oncology Surgery Dennis Sarmiento MD [address] [place] [address] [facility] Oncology Surgical Start: 08-16-2021 End: 08-16-2021 Telemedicine consultation with patient 08/16/2021 Telemedicine Oncology Surgery Dennis Sarmiento MD [address] [place] [address] [facility] Oncology Surgical Start: 08-10-2021 End: 08-10-2021 Patient encounter procedure 08/10/2021 Office Visit General Surgery [facility] Surgery General Start: 07-30-2021 End: 07-30-2021 Admission to same day surgery center 07/30/2021 Surgery General Surgery Dennis Sarmiento MD [address] [place] [id number] HEPATECTOMY, PARTIAL, LOBECTOMY [facility] Main OR Comment on above: HEPATECTOMY, PARTIAL, [...] Hospital Encounter General Surgery Dennis Sarmiento MD [address] [place] [address] [facility] Main OR Start: 07-15-2021 End: 07-15-2021 Patient encounter procedure 07/15/2021 Office Visit Presurgical Evaluation Marcella Luevano, ENVIRONMENTAL SCIENCE PROFESSOR-SAP SPECIALIST [address] [place] [address] [place] [address] [facility] [place] Pre-Surgical Evaluation Start: 07-07-2021 End: 07-07-2021 Evaluation and management of inpatient 07/07/2021 Office Visit Internal Medicine Jennifer Khan MD [address] [place] [address] [facility] [employer] Start: 06-22-2021 End: 06-22-2021 Patient encounter procedure 06/22/2021 Office Visit General Surgery Dennis Sarmiento MD [address] [place] [phone] [facility] Surgery General Start: 06-16-2021 End: 06-16-2021 Admission to same day surgery center 06/16/2021 Surgery Gastroenterology Leobardo Barry MD [address] [place] [address] [place] [address] ERCP, GENERAL ANESTHESIA [facility] Mult[facility]pecialty Endoscopy Suite Comment on above: ERCP, GENERAL ANESTHESIA Start: 06-16-2021 End: 06-16-2021 ERCP, GENERAL ANESTHESIA [facility] Start: 06-16-2021 Subsequent hospital visit by physician 06/16/2021 Hospital Encounter Gastroenterology Leobardo Barry MD [address] [place] [address] [place] [address] [facility] Start: 05-31-2021 Depression Screening Depression Screening [facility] [employer] [facility] Start: 05-18-2020 Depression Screening Depression Screening [facility] [employer] [facility] Start: 2018 Screening for malignant neoplasm of breast Mammography [facility] Start: 1999 Screening for malignant neoplasm of [...] C screening Hepatitis C Antibody [facility] Start: 1993 HIV screening HIV Test [facility] Start: 01-29-1984 Pneumococcal vaccination [facility] Start: 1983 COVID-19 Vaccine (#1) COVID-19 Vaccine (#1) [facility] Start: 1983 COVID-19 Vaccine (1) COVID-19 Vaccine (1) [facility] Start: 1978 COVID-19 Vaccine (#1) COVID-19 Vaccine (#1) [facility] Start: 1978 Screening for malignant neoplasm of colon Colonoscopy [facility] Start: 1978 Tobacco Counseling Tobacco Counseling [facility] Calculated LDL cholesterol level [facility] Cholesterol.total/Ch o lesterol in HDL [Mass Ratio] in Serum or Plasma [facility] Culture bacterial an y source anaerobic iso&id ANAEROBIC CULTURE, MISC Microbiology Routine Cyst of gallbladder Liver cyst 07/30/2021 4:19 PM EDT [facility] Culture tubercle/oth acid-fast bacilli any isol [employer] CULTURE/SMEAR Microbiology Routine Cyst of gallbladder Liver cyst 07/30/2021 4:19 PM EDT [facility] ERCP, GENERAL ANESTHESIA ERCP, GENERAL ANESTHESIA Cyst [...] gallbladder Liver cyst [employer] Patient Education [facility] Work Phone: Patient referral [facility] Work Phone: End: 06-16-2021 Surgical pathology procedure SURGICAL GI ANATOMIC PATHOLOGY Anatomic Pathology Routine One time for 1 Occurrences starting 06/16/2021 until 06/16/2021 [employer] Work Phone: Comment on above: One time for 1 Occurrences starting 06/04 until 06/16/2021 Surgical pathology procedure [employer] Work Phone: Comment on above: Release Upon Ordering for 1 Occurrences starting 07/30/2021, 1 completed VLDL cholesterol measurement [facility] Immunizations Immunization Date Immunization Notes Care Provider Fa cility 04-23-2021 Hemoglobin A1C Leigh Ann Katherine es ENVIRONMENTAL SCIENCE PROFESSOR-SAP SPECIALIST Work Phone: [facility] 03-22-2019 tetanus toxoid, reduced diphtheria toxoid, and acellular pertussis vaccine, adsorbed Leigh Ann Teagan ENVIRONMENTAL SCIENCE PROFESSOR-SAP SPECIALIST Work Phone: [facility] 01-29-2019 influenza, injectable, quadrivalent, preservative free Leigh Ann Teagan ENVIRONMENTAL SCIENCE PROFESSOR-SAP SPECIALIST Work Phone: [facility] 01-29-2019 influenza virus vaccine, unspecified formulation Dennis Sarmiento MD Work Phone: [facility] NEGATED: Highlighted row has not occurred!05-15-2019 measles, mumps and rubella virus vaccine Stephanie Webster MD Work Phone: [facility] [employer] Comment on above: Deferred: Other - Im munity NEGATED: Highlighted row has not occurred!05-15-2019 tetanus toxoid, reduced diphtheria toxoid, and acellular pertussis vaccine, adsorbed Stephanie Webster MD Work Phone: [employer] Comment on above: Deferred: Other - Gi stevie in office this 03/12/2019 NEGATED: Highlighted row has not occurred!05-15-2019 varicella virus vaccine Stephanie Webster MD Work Phone: [employer] Comment on above: Deferred: Other - Im munity NEGATED: Highlighted row has not occurred!05-14-2019 measles, mumps and rubella virus vaccine Stephanie Webster MD Work Phone: [employer] [facility] Comment on above: Deferred: Other NEGATED: Highlighted row has not occurred!05-14-2019 varicella virus vaccine Stephanie Webster MD Work Phone: [employer] Comment on above: Deferred: Other Payers Date Payer Category Payer Self-pay [id number] 2022 Medicaid [id number] 2020 Medicaid [id number] 2016 Unknown [id number] 1978 Unknown [id number] 2.16.8 [id number] 1978 Unknown [id number] 2.16.84 [id number] 1978 Unknown [id number] 2.16.84 [id number] 1978 Unknown [id number] 2.16.84 [id number] 1978 Unknown [id number] 2.16.84 [id number] 1978 Unknown [id number] 2.16. [id number] 1978 Unknown [id number] 2.16. [id number] 1978 Unknown [id number] 2.16. [id number] 1978 Unknown [id number] 2.16.8 40.1.240522.3.579.2.1286 1978 Unknown [id number] 2.16.8 [id number] 1978 Unknown [id number] 2.16.8 40.1.005501.3.579.2.1286 1959 Unknown [id number] 2.1 [id number] Unknown [id number] 2.16.8 [id number] Unknown [id number] 2.16.8 40.1.825626.3.579.2.531 Unknown [id number] 2.16.8 40.1.338772.3.579.2.531 Unknown [id number] 2.16.8 [id number] Social History Date Type Detail Facility Start: 04-02-2021 End: 06-11-2021 Tobacco smoking status MAIS Smokes tobacco daily [facility] Start: 03-06-1996 History of tobacco use Cigarette Smo ker [facility] Start: 04-02-2021 End: 08-03-2021 Cigarettes smoked current (pack per day) - Reported 0.75 [facility] Start: 04-02-2021 End: 06-11-2021 Tobacco use and [...] Start: 05-31-2020 End: 08-03-2021 Sex Assigned At [facility] Start: 05-10-2022 End: 07-06-2024 Tobacco smoking status MAIS Smoker (finding) [facility] Start: 1978 Sex Assigned At Female [facility] Do you belong to any clubs or organizations such as latter-day groups, unions, fraternal or athletic groups, or school groups? No [facility] Are you now , , , , never or living with a partner? Martins [facility] How hard is it for y ou to pay for the very basics like food, housing, medical care, and heating Not hard at all [facility] Do you feel stress - tense, restless, nervous, or anxious, or unable to sleep at night because your mind is troubled all the time - these days [OSQ] Not at all [facility] The thought of eric vasquez myself has occurred to me Never [facility] Start: 07-20-2022 Tobacco Comment using nicorett e occasionally [facility] Start: 06-29-2022 Alcohol Comment former abuser [facility] Start: 10-09-2014 End: 04-02-2021 Sex Female (finding) [facility] Start: 06-11-2024 Tobacco smoking stat us MAIS Never smoked tobacco (finding) [facility] Start: 02-14-2022 Details of drug misu se behavior Misused drugs in past (finding) [facility] (I/We) worried wheth er (my/our) food would run out before (I/we) got money to buy more. Never true [facility] NEGATED: Highlighted row [facility] Goals Date Patient Goal Desired Activity /State Functional Status Date Assessment Result Facility 06-14-2024 Functional status Patient at [facility] Work Phone: 11-14-2023 Functional status Patient at [facility] Work Phone: 05-15-2022 Functional status Patient at [facility] Work Phone: Mental Status Date Assessment Result Facility 06-14-2024 Cognitive function Cognitive Sta tus Patient at Baseline [facility] Work Phone: 11-14-2023 Cognitive function Cognitive Sta tus Patient at Baseline [facility] Work Phone: 05-15-2022 Cognitive function Cognitive Sta tus Patient at Baseline [facility] Work Phone: Clinical Notes 06-07-2021 to 08-06-2024 Note Date & Type Note Facility 08-06-2024 Note [place]rophysiology Consult [place] - [facility] 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 [...] file Physical Activity: Inactive (05/31/2020) Received from [employer] [employer] Exercise Vital Sign Days of Exercise per Week: 0 days Minutes of Exercise per Session: 0 min Stress: No Stress Concern Present (05/31/2020) Received from [facility] [employer] [place] of Occupational Health - Occupational Stress Questionnaire Feeling of Stress : Not at all Social Connections: Socially Isolated (05/31/2020) Received from [facility] [employer] [employer] Social Connection and Isolation Panel [NHANES] Frequency of Communication with Friends and Family: Never Frequency of Social Gatherings with Friends and Family: Never Attends Shinto Services: Never Active Member of Clubs or Organizations: No Attends Club or Organization Meetings: Never Marital Status: Intimate Partner Violence: Unknown (05/24/2024) Humiliation, Afraid, Rape, and Kick questionnaire Fear of Current or Ex-Partner: No Emotionally Abused: Not on file Physically Abused: Not on file Sexually Abused: Not on file Depression: At risk (07/03/2023) Received from [employer] [employer] PHQ-2 Total Score: 10 Housing Stability: Low Risk (05/24/2024) Housing Stability Vital Sign Unable to Pay for Housing in the Last Year: No Number of Times Moved in the Last Year: Not on file Homeless in the Last Year: No Utilities: Not At Risk (05/24/2024) [facility] Utilities Threatened with loss of utilities: [...] if needed. omeprazole (more content not included)... [facility] 06-14-2024 Hospital Discharge instructions Additional Instructions Important Contact Information You can call [facility] Inpatient Behavioral Health at [phone] any time day or night if you have emergent questions or question regarding discharge instructions. If at any time you are feeling an increase in your psychiatric symptoms, call your physician or behavioral healthcare provider. If any time you have thoughts of harming yourself or others contact one of the following: Call 98-8 (available 26/09) Crisis Text Line (available 26/09) text 4HOPE to 369536 [facility] Hope Line (available 8 a.m. Midnight) call [phone] ([phone]) [facility] Work Phone: 06-13-2024 Progress note Note Date/Time June 13, 2024 7:23am [facility] [address] [place] [address] Psychiatry Progress Note Signed Patient: Shahla Arias MR#: [id number] : 1980 Acct:[id number] Age/Sex: 44 / F Adm Date: 5 Loc: Room: 1L4093-6 Type : ADM IN Attending Dr: Vivek [...] signed by Vivek Antoine MD> 06/13/24 0723 [facility] Work Phone: 1(156) 793-352604-10-2025 [place] [id number] Psychiatry Progress Note Signed Patient: Shahla Arias MR#: [id number] : 1980 Acct:[id number] Age/Sex: 44 / F Adm Date: 5 Loc: Room: [address] [place] [address] Type : ADM IN Attending Dr: Vivek [...] MD 5 [id number] Signed By: 06/13/24 0723 [facility]04-09-2025 History and physical note Author Vivek washburn [facility] Note Date/Time June 12, 2024 1:52 pm [facility] [address] [place] [address] Psychiatry H&P Signed Patient: Shahla Arias MR#: [id number] : 1980 Acct:[id number] Age/Sex: 44 / F Adm Date: 5 Loc: Room: [address] [place] [address] Type: ADM IN Attending Dr: Vivek Antoine [...] negative unless noted below or in HPI [facility] Medical History Essential hypertension Depression with anxiety [...] of carpal tunnel release of both wrists [place] teeth removed History of cholecystectomy Family History [...] Appearance Clear Urine pH 5.5 Ur Specific Brilliant 1.025 Urine Protein 20 H Urine Glucose [...] daily Documented By: Vivek Antoine MD 5 [id number] Signed By: <Electronically signed by Vivek Antoine MD> 06/12/24 [facility] Work Phone: 1(440) 780-695904-09-2025 [place] [address] Psychiatry H&P Signed Patient: Shahla Arias MR#: [id number] 2579 : 1980 Acct:[id number] Age/Sex: 44 / F Adm Date: 5 Loc: Room: [address] [place] [address] Type: ADM IN Attending Dr: Vivek Antoine [...] negative unless noted below or in HPI [facility] Medical History Essential hypertension Depression with anxiety [...] of carpal tunnel release of both wrists [place] teeth removed History of cholecystectomy Family History [...] or wheezing #8.5 grams 03/31/24 [Rx Confirmed 04/08/25] bupropion HCl 300 mg 24 hr tablet, [...] Appearance Clear Urine pH 5.5 Ur Specific Brilliant 1.025 Urine Protein 20 H Urine Glucose [...] daily Documented By: Vivek Antoine MD 5 [id number] Signed By: 06/12/24 [facility]04-08-2025 Evaluation note* Diagnosis Onset Date Resolution Status Admit Date Major depression acute June 8:59pm Depression with anxiety resolved A pril 2024 8:59pm Suicidal ideation resolved June 112024 8:59pm Bronchitis with asthma, acute noneac tive June 25, 2024 2:40pm [facility] Work Phone: 1(225) 358-433204-08-2025 NoteUT Electrophysiology Consult Note [place] Cardiology [facility] Reason for visit: WPW HPI: [...] file Physical Activity: Inactive (05/31/2020) Received from [employer] [employer] Exercise Vital Sign Days of Exercise per Week: 0 days Minutes of Exercise per Session: 0 min Stress: No Stress Concern Present (05/31/2020) Received from [employer] [employer] [place] of Occupational Health - Occupational Stress Questionnaire Feeling of Stress : Not at all Social Connections: Socially Isolated (05/31/2020) Received from [employer] [employer] Social Connection and Isolation Panel [NHANES] Frequency of Communication with Friends and Family: Never Frequency of Social Gatherings with Friends and Family: Never Attends Shinto Services: Never Active Member of Clubs or Organizations: No Attends Club or Organization Meetings: Never Marital Status: Intimate Partner Violence: Unknown (05/24/2024) Humiliation, Afraid, Rape, and Kick questionnaire Fear of Current or Ex-Partner: No Emotionally Abused: Not on file Physically Abused: Not on file Sexually Abused: Not on file Depression: At risk (07/03/2023) Received from [employer] [employer] PHQ-2 Total Score: 10 Housing Stability: Low Risk (05/24/2024) Housing Stability Vital Sign Unable to Pay for Housing in the Last Year: No Number of Times Moved in the Last Year: Not on file Homeless in the Last Year: No Utilities: Not At Risk (05/24/2024) [facility] Utilities Threatened with loss of utilities: [...] tablet Take 10 (more content not included)... [facility]03-22-2025 NoteHospital Medicine Discharge Summary Final Discharge Diagnosis: NSTEMI, likely demand ischemia in setting of acute illness. Abnormal stress test with anterior reversible defect and TID. Pre-Excitation on EKG Peripheral artery disease, follows with vascular , on dual antiplatelet therapy. Normocytic anemia Primary hypertension Class II obesity Admission Diagnosis: NSTEMI (non-ST elevated myocardial infarction) (CMS/HCC) [I21.4] Hospital course: 44-year-old female with past medical history significant for peripheral vascular disease on DAPT, uncontrolled hypertension, obesity who presented initially to [facility] due to nausea/vomiting and abdominal pain. Initial workup at [facility] was significant for elevated high-sensitivity troponin, stress test was ordered but the patient was not able to complete the stress test and the patient was transferred to [facility] to be evaluated by cardiology. Patient was [...] Center 06/11/2024 11:30 AM Cornell Rodriguez MD [facility] Hos Your medication list CONTINUE taking these [...] was 38 minutes. Signed Shreyas Rodriguez MD [facility] Medicine 05/25/2024 10:33 AM CC: [facility] Note Attestation signed by Vira Heath MD [...] discharge. Vira Heath MD, ScM, MSc Cardiac Assistant Track Coach Email: [email or web address] Cardiology Progress Note Subjective Subjective: Patient [...] mg, oral, Daily, Cj Robles MD diphenhydrAMINE-AlumMg Pfmgei-Pgstwj-Ezatceooe (MAGIC Mouthwash) suspension 10 mL, 10 mL, [...] abdominal tenderness. Musculoskeletal: Rig (more content not included)...[facility]03-21-2025 NotePatient: Shahla Arias Procedure Information Date/Time: 05/24/24 1534 Procedure: Coronary angiography Location: [facility] MEDICAL BILLING INSTRUCTOR 3 / [facility] (Cath) Providers: Silvestre Neumann MD Clinical information reviewed: Allergies Meds Problems Physical Exam Airway Mallampati: III Cardiovascular Rhythm: regular Rate: normal Dental Pulmonary Breath sounds clear to auscultation Abdominal Anesthesia Plan ASA 3 other (Moderate Sedation ) Anesthetic plan and risks discussed with patient. Use of blood products discussed with patient who consented to blood products. Additional Equipment RequestsUnMarion Hospital03-21-2025 Note- Note that patient had abdominal pain after eating a compelled meal and Evan. -Must consider biliary dyskinesia and also acute pancreatitis being that patient has had acute pancreatitis in the past.[facility] 05-24-2024 Note-Patient has positive test however she states that she is not -Patient states that she has tubal ligation -Repeat quantitative beta-hCG DVT prophylaxis using VTE protocols per [facility] GI protection Protonix Monitor labs and correct any abnormalities especially monitor renal function Try to avoid nephrotoxic agents Consult include cardiology and nephrology I discussed the plan of care with the patient and she is in agreement with the plan of care.[facility]03-21-2025 Note-Gentle hydration with normal saline at rate of 50 mL/h -Avoid nephrotoxic agents -Care must be taken to preserve renal function before, during and after catheterization -Need to consult with nephrology.[facility]03-21-2025 Note-Weight loss by virtue of diet and exerciseUnMarion Hospital03-21-2025 Note-Pantoprazole orallyUnMarion Hospital 05-24-2024 Note-Proceed to catheterization however care must be taken because of patient's renal function. -May need to [facility] Note-Patient's blood pressure is completely controlled this morning it was 100/65 -Will hold all antihypertensive medications for the momentUnMarion Hospital03-21-2025 Note-Patient is currently chest pain-free -Commence patient on IV heparinization -Aspirin -Obtain lipid panel -Consult cardiology -Has supplemental oxygen and nitrates ready to use if patient has chest discomfort.[facility]03-21-2025 NoteHospital Medicine History and Physical 05/24/2024 7:55 AM THE HOSPITALIST TEAM PREFERS TO USE [employer] FOR NON-URGENT COMMUNICATION 7AM-7PM. IF I DO NOT RESPOND WITHIN 20 MINUTES OR URGENT MATTERS, PLEASE CALL THROUGH THE CUT OFF SAW SET UP OPERATOR. FROM 7PM-7AM, PLEASE PAGE [phone](COVR). Chief Complaint No chief complaint on file. History of Present Illness Shahla Arias is an 44 y.o. female who [facility] with NSTEMI, abnormal EKG and abnormal stress test and to have a heart cath today. 44-year-old lady whose past medical history significant for the following; hypertension, obesity, depression and anxiety, history of peripheral disease. Patient was transferred from [facility] to [facility] for further treatment. She presented to the ER at [facility] with abdominal pain, nausea and vomiting following a meal at [facility]. Pain also continued after she had a Evan. These symptoms began on 05/21/2024. At [facility] patient was investigated and was found to have abnormalities with BUN/creatinine as well as also with stress testing and abnormal EKGs. [facility] made contact with [place] cardiology and patient was transferred here for have catheterization today. When I saw her she was lying in bed woken up voiced no complaints. She denied any abdominal pain or chest pain, nausea or vomiting. Laboratory investigations that were done at [facility] showed a BUN of 29 and [...] hypertension, obesity anxiety and depression seen at [facility] diagnosed with NSTEMI and IAM. She is transferred here for for cardiac catheterization following abnormal stress test. Assessment & Plan NSTEMI (non-ST elevated myocardial infarction) (CMS/HCC) -Patient is currently chest pain-free -Commence patient [...] beta-hCG DVT prophylaxis using (more content not included)...[facility]01-26-2025 Evaluation note* Diagnosis Onset Date Resolution Status Admit Date RSV (respiratory syncytial virus infection) acute March 31, 11:18am Major depression acute June 8:59pm Suicidal ideation acute June 112024 8:59pm [facility] Work Phone: 1(253) 459-944601-26-2025 Evaluation note* Diagnosis Onset Date Resolution Status Admit Date RSV (respiratory syncytial virus infection) acute March 31, 11:18am Depression with anxiety acute A pri2024 8:59pm Major depression acute June 8:59pm Suicidal ideation acute June 112024 8:59pm [facility] Work Phone: 1(766) 542-401101-26-2025 Evaluation note* Diagnosis Onset Date Resolution Status Admit Date RSV (respiratory syncytial virus infection) acute March 31, 025 11:18am Major depression acute June 8:59pm Depression with anxiety resolved A pril 2024 8:59pm Suicidal ideation resolved June 112024 8:59pm [facility] Work Phone: 1(709) 317-295201-10-2025 NoteCardiology Clinic Note HPI: Shahla Arias is a 44 y.o. 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 She presents today for follow up. She was recently at [facility] for acute hypotension, IAM, and ECG [...] reflux disease), Hypertension, PAD (peripheral artery disease) ([facility]), Palpitations, and Raynaud's disease. Surgical History She [...] - Transthoracic echo (TTE) complete; Future WPW (Xprcw-Jvmnuzwal-Qppry syndrome) - Treadmill Stress Myocardial Perfusion Imaging; [...] cardiology clinic Benito Prado MD Interventional Cardiology [place] (more content not included)...[facility] 03-07-2024 History of Present illness Narrative* Stephanie Webster MD - 03/07/2024 10:30 AM EST Images from the original note were not included. To: JOSETTE MANDEL, ENVIRONMENTAL SCIENCE PROFESSOR-SAP SPECIALIST HPI: Shahla Arias is a 44 y.o. [...] History: Past Medical History: Diagnosis Date Alcoholic ([facility]) Anxiety Arthritis Asthma Bipolar disorder ([facility]) Depression Fractures GERD (gastroesophageal reflux disease) HPV (human papilloma virus) infection Hyperlipidemia Hypertension Migraine Obesity Postoperative wound infection 05/22/2019 Past Surgical History: Past Surgical History: Procedure Laterality Date APPLICATION WOUND VAC N/A 05/22/2019 Performed by Boni Ogden MD at [facility] N/A 05/13/2019 Performed by Boni Ogden MD at [facility] OR Cardiac catheterization 07/02/2020 Performed by Va Coy MD at [facility] CARDIAC CATH [facility]S CARPAL TUNNEL RELEASE Bilateral CHOLECYSTECTOMY Coronary angiogram only N/A 07/02/2020 Performed by Va Coy MD at [facility] CARDIAC CATH [facility]S DEBRIDEMENT WOUND N/A 05/22/2019 Performed by Boni Ogden MD at [facility] LAPAROSCOPIC SALPINGECTOMY Bilateral 07/20/2022 Performed by Sabina Leung DO at [facility] LIVER BIOPSY Social and Family History: [...] Resource Strain: Low Risk (08/03/2021) Received from [employer] Resource Strain (CARDIA) Difficulty of Paying Living Expenses: Not hard at all Food Insecurity: No Food Insecurity (03/07/2024) Hunger Screening Food Insecurity - Worry: Never True Food Insecurity - Inability: Never True Transportation Needs: No Transportation Needs (08/03/2021) Received from [employer] PRAPARE - Transportation Lack of Transportation (Medical): No Lack of Transportation (Non-Medical): No Physical Activity: Inactive (05/31/2020) Exercise Vital Sign Days of Exercise per Week: 0 days Minutes of Exercise per Session: 0 min Stress: No Stress Concern Present (05/31/2020) Citizen Of [place] of Occupational Health - Occupational Stress Questionnaire Feeling of Stress : Not at all Social Connections: Socially Isolated (05/31/2020) Social Connection and Isolation Panel [NHANES] Frequency of Communication with Friends and Family: Never Frequency of Social Gatherings with Friends and Family: Never Attends Shinto Services: Never Active Member of Clubs or Organizations: No Attends Club or Organization Meetings: Never Marital Status: Interpersonal Safety: Unknown (06/28/2023) Received from [facility] Fear of Current or Ex-Partner: Not on file Emotionally Abused: Not on file Physically Abused: Not on file Sexually Abused: Not on file Physically or Sexually Abused: Not on file Housing Instability: Unknown (08/03/2021) Received from [facility] Housing Stability Vital Sign Unable to Pay [...] Stephanie Webster MD, EMA, RPVI, FSVS, FACS [facility] [employer] This note was created with the assistance of a speech recognition program. While intending to generate a timely document that accurately reflects the content of the visit, no guarantee can be provided that every grammatical or spelling mistake has been or will be identified or corrected. Thank you for your understanding. documented in this encounterTriHealth01-02-2025 Instructions* Patient Instructions* Stephanie Webster MD - 03/07/2024 10:30 AM EST Are You Ready To Kick The Habit? Free Tobacco Cessation Resources [facility] Tobacco Treatment Center Services [facility] Tobacco Treatment Centers provide all employees with free tobacco cessation services that include: Counseling to understand nicotine addiction Education about medications that can help you successfully quit Assistance with developing a plan to quit Call to set up an individual appointment or find out when group classes will be held: [facility]: [phone] [facility]: [phone] [facility]: [phone] [facility]: [phone] Quit Smoking Action Plan and Resources [facility] offers an eight-week, online smoking cessation plan to all [facility] employees, regardless of whether [employer] is your medical insurance provider. Go to [email or web address] [email or web address] and click the Health Risk Assessment and Resources link to get started. In the Rtzao7Xgxamu menu, click Action Plans instead of Health Risk Assessment to access the Quit Smoking Action Plan. Additional smoking cessation resources are also available to all [employer] [facility] employees on the [employer] web page at www.e-Zassi/quitsmoking. [employer] Tobacco Cessation Program If [employer] is your medical insurance provider, there are more free resources available to you, including: No copays or deductibles on local tobacco cessation counseling services to help you quit Prescription assistance for tobacco cessation medications to help you quit For details about the tobacco cessation program available to [employer] members, go to www.cacaoTV.CleanTie (Search: Tobacco Cessation Program). [place] Tobacco Quit Line 9-281-YNCW-NOW ( ) is a toll-free, telephonic service that helps [place] residents quit smoking and using tobacco. It is staffed by experts who tailor a quit plan for you and provide you with advice. [place] Tobacco Quit Line 1-264-ICBM-NOW ( ) is a toll-free, telephonic service that helps [place] residents quit smoking and using tobacco. It is staffed by experts who tailor a quit plan for you and provide you with advice. Two weeks of nicotine replacement therapy may be provided at no charge, if needed. Additional Resources These national organizations also offer free information and resources to help you quit tobacco: Citizen [place] Cancer Society--www.cancer.org/healthy/stayawayfromtobacco Citizen Of [place] Heart Association--www.heart.org (Search: Quit Smoking) Centers for Disease Control and Prevention--www.cdc.gov/tobacco Citizen Of [place] Lung Association--www.lungusa.org documented in this encounterPorter Medical CenterRewardix01-02-2025 Evaluation + Plan note* Assessment & Plan Note - Stephanie Webster MD - 03/07/2024 10:17 AM EST Associated Problem(s): 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) Is significantly resolved with very mild residual discoloration of the left great toe.We will continue aspirin Plavix and statin [facility]01-02-2025 Miscellaneous Notes* Assessment & Plan Note - [...] Smoking cessation. Continue walking. documented in this encounterTriHealth01-02-2025 Evaluation + Plan note* Assessment & Plan Note - Stephanie Webster MD - 03/07/2024 10:16 AM EST Associated Problem(s): Cigarette smoker motivated to quit Counseled on smoking cessation for 3 minutes she is willing to quit [facility]01-02-2025 Evaluation + Plan note* Assessment & Plan Note - Stephanie Webster MD - 03/07/2024 10:16 AM ESTAssociated Problem(s): Severe claudication (CMS-HCC) Continue aspirin Plavix statin. Smoking cessation. Continue walking. [facility]09-26-2024 Evaluation + Plan note* Assessment & Plan Note - Stephanie Webster MD - 11/30/2023 9:01 AM EDTAssociated Problem(s): Cigarette smoker motivated to quit Counseled on smoking cessation at length [facility]09-26-2024 Evaluation + Plan note* Assessment & Plan Note - Stephanie Webster MD - 11/30/2023 9:01 AM EDTAssociated Problem(s): Claudication ([facility]) Best medical therapy with aspirin and Plavix and statin. Supervised walking program. Smoking cessation. [facility]-26[facility]2024 Miscellaneous Notes* Assessment & Plan Note - Stephanie Webster MD - 11/30/2023 9:01 AM EDTAssociated Problem(s): Cigarette smoker motivated to quit Counseled on smoking cessation at length * Assessment & Plan Note - Stephanie Webster MD - 11/30/2023 9:01 AM EDT Associated Problem(s): Claudication ([facility]) Best medical therapy with aspirin and Plavix and statin. Supervised walking program. Smoking cessation. documented in this encounterTriHealth09-26-2024 History of Present illness Narrative* Stephanie Webster MD - 11/30/2023 8:30 AM EDT Images from the original note were not included. To: JOSETTE MANDEL, ENVIRONMENTAL SCIENCE PROFESSOR-SAP SPECIALIST HPI: Shahla Arias is a 43 y.o. [...] History: Past Medical History: Diagnosis Date Alcoholic ([facility]) Anxiety Arthritis Asthma Bipolar disorder ([facility]) Depression Fractures GERD (gastroesophageal reflux disease) HPV (human papilloma virus) infection Hyperlipidemia Hypertension Migraine Obesity Postoperative wound infection 05/22/2019 Past Surgical History: Past Surgical History: Procedure Laterality Date APPLICATION WOUND VAC N/A 05/22/2019 Performed by [facility]i [facility] N/A 05/13/2019 Performed by [facility] Cardiac catheterization 07/02/2020 Performed by Va Coy MD at [facility] C[facility]ATH [facility]S CARPAL TUNNEL RELEASE Bilateral CHOLECYSTECTOMY Coronary angiogram only N/A 07/02/2020 Performed by Va Coy MD at [facility]ATH [facility] DEBRIDEMENT WOUND N/A [...] Resource Strain: Low Risk (08/03/2021) Received from [employer] Overall Financial Resource Strain (CARDIA) Difficulty of Paying Living Expenses: Not hard at all Food Insecurity: No Food Insecurity (11/30/2023) Hunger Screening Food Insecurity - Worry: Never True Food Insecurity - Inability: Never True Transportation Needs: No Transportation Needs (08/03/2021) Received from [employer] PRAPARE - Transportation Lack of Transportation (Medical): No Lack of Transportation (Non-Medical): No Physical Activity: Inactive (05/31/2020) Exercise Vital Sign Days of Exercise per Week: 0 days Minutes of Exercise per Session: 0 min Stress: No Stress Concern Present (05/31/2020) Citizen Of [place] of Occupational Health - Occupational Stress Questionnaire Feeling of Stress : Not at all Social Connections: Socially Isolated (05/31/2020) Social Connection and Isolation Panel [NHANES] Frequency of Communication with Friends and Family: Never Frequency of Social Gatherings with Friends and Family: Never Attends Shinto Services: Never Active Member of Clubs or Organizations: No Attends Club or Organization Meetings: Never Marital Status: Interpersonal Safety: Unknown (06/28/2023) Received from [facility] Fear of Current or Ex-Partner: Not on file Emotionally Abused: Not on file Physically Abused: Not on file Sexually Abused: Not on file Physically or Sexually Abused: Not on file Housing Instability: Unknown (08/03/2021) Received from [employer] Housing Stability Vital Sign Unable to Pay [...] on smoking cessation at length Claudication ([facility]) Current Assessment & Plan Best medical therapy with aspirin and Plavix and statin. Supervised walking program. Smoking cessation. Shahla was seen today for 3 month follow up no testing ordered and severe claudication ([facility]). Diagnoses and all orders for this visit: Cigarette smoker motivated to quit Claudication ([facility]) Stephanie Webster MD, EMA, RPVI, FSVS, FACS [facility] This note was created with the assistance of a speech recognition program. While intending to generate a timely document that accurately reflects the content of the visit, no guarantee can be provided that every grammatical or spelling mistake has been or will be identified or corrected. Thank you for your understanding. documented in this encounterTriHealth09-26-2024 Instructions* Patient Instructions* Stephanie Webster MD - 11/30/2023 8:30 AM EDT Are You Ready To Kick The Habit? Free Tobacco Cessation Resources [facility] Tobacco Treatment Center Services [facility] Tobacco Treatment [facility] provide all employees with free tobacco cessation services that include: Counseling to understand nicotine addiction Education about medications that can help you successfully quit Assistance with developing a plan to quit Call to set up an individual appointment or find out when group classes will be held: [facility]: [phone] [facility]: [phone] [facility]: [phone] [facility]: [phone] Quit Smoking Action Plan and Resources [facility] offers an eight-week, online smoking cessation plan to all [facility] employees, regardless of whether [employer] is your medical insurance provider. Go to [email or web address] and click the Health Risk Assessment and Resources link to get started. In the FusionOps menu, click Action Plans instead of Health Risk Assessment to access the Quit Smoking Action Plan. Additional smoking cessation resources are also available to all [facility] employees on the Yrapj8Jhrllh web page at www.cacaoTV.[email or web address]/quitsmoking. [employer] Tobacco Cessation Program If [employer] is your medical insurance provider, there are more free resources available to you, including: No copays or deductibles on local tobacco cessation counseling services to help you quit Prescription assistance for tobacco cessation medications to help you quit For details about the tobacco cessation program available to [employer] members, go to www.cacaoTV.CleanTie (Search: Tobacco Cessation Program). [place] Tobacco Quit Line 4-651-TJRN-NOW ( ) is a toll-free, telephonic service that helps [place] residents quit smoking and using tobacco. It is staffed by experts who tailor a quit plan for you and provide you with advice. [place] Tobacco Quit Line 7-896-BJTM-NOW ( ) is a toll-free, telephonic service that helps [place] residents quit smoking and using tobacco. It is staffed by experts who tailor a quit plan for you and provide you with advice. Two weeks of nicotine replacement therapy may be provided at no charge, if needed. Additional Resources These national organizations also offer free information and resources to help you quit tobacco: Citizen Of [place] Cancer Society--www.cancer.org/healthy/stayawayfromtobacco Citizen Of [place] Heart Association--www.heart.org (Search: Quit Smoking) Centers for Disease Control and Prevention--www.cdc.gov/tobacco Citizen Of [place] Lung Association--www.lungusa.org documented in this encounterPorter Medical CenterLinks Global [id number] Discharge summary Author Vivek washburn [facility] November 14, 2023 7:16am Note Date/Time November 14, 2023 7:17am [facility] [address] [place] [address] Discharge Summary Signed Patient: Shahla Arias MR#: [id number] 2579 : 1980 Acct:[id number] Age/Sex: 43 / F Adm Date: 4 Loc: Room: [address] [place] [address]: Geo Loomis MD Copies to: MD Geo Arredondo MD Pamela Sue Cramer, SAP SPECIALIST~ Providers Date of Discharge: 11/14/23 Discharging Provider: [...] unit milieu. She has beenworking with case sealer on her aftercare she agreed to continue the current medications regimen. She understands risks, benefits, and indications of current medication regimen.She sees Opal Tracey her outpatient SEISMOGRAPH HELPER She has not history of recent suicide [...] Instructions: Important Contact Information You can call [facility] Inpatient Behavioral Health at [phone] any time day or night if you have emergent questions or question regarding discharge instructions. If at any time you are feeling an increase inyour psychiatric symptoms, call your physician or behavioral healthcare provider. If any time you have thoughts of harming yourself or others contact one of the following: Call (available 26/09) Crisis Text Line (available 26/09) text 4HOPE to 559537 [facility] Hope Line (available 8 a.m. Midnight) call [phone] ([phone]) Instructions: Know your Meds Prescriptions: New bupropion [...] tablet 75 mg PO DAILY Follow Up: [facility] [Outside] Josette Mandel NP-C [Primary Care Provider] - (Call with any medical questions or concerns.) Exam Physical Exam Vital Signs: Temp Pulse Resp BP Pulse Ox O2 Del Method 97.4 F L 88 18 101/68 97 Room Air 11/13/23 20:04 11/13/23 20:04 11/13/23 20:04 11/13/23 20:04 11/13/23 20:04 11/13/23 20:04 Documented By: Vivek Antoine MD 4 [id number] Signed By: <Electronically signed by Vivek Antoine MD> 11/14/23 0716 [facility] Work Phone: 1(970) 219-609309-09-2024 Progress note Author Vivek washburn [facility] November 13, 2023 7:20am Note Date/Time November 13, 2023 7:19am [facility] [address] [place] [address] Psychiatry Progress Note Signed Patient: Shahla Arias MR#: [id number] : 1980 Acct:[id number] Age/Sex: 43 / F Adm Date: 4 Loc: Room: [address] [place] [address] Type : ADM IN Attending Dr: Geo Loomis MD Copies to: ~ Date of Service: 11/13/2023 Subjective Subjective Narrative: Ms. Arias reported that she her anxiety at 7 out of 10 with 10 being the worst. Depression is ongoing but noted no suicidal thoughts on exam. She lives with herhusband and daughter whom she described as supportive. She sees Sabina Tracey her outpatient SEISMOGRAPH HELPER and a therapist. She said symptoms are [...] signed by Vivek Antoine MD> 11/13/23 0720 [facility] Work Phone: 1(231) 517-322409-08-2024 Progress note Author Geo Loomis [facility] November 12, 2023 11:19am Note Date/Time November 12, 2023 11:20am [facility] [address] [place] [address] Psychiatry Progress Note Signed Patient: Shahla Arias MR#: [id number] : 1980 Acct:[id number] Age/Sex: 43 / F Adm Date: 4 Loc: Room: [address] [place] [address] Type : ADM IN Attending Dr: Geo [...] By: <Electronically signed by Geo Loomis MD> 11/12/231118 [facility] Work Phone: 1(787) 514-101809-07-2024 Progress note Author Geo Loomis [facility] November 11, 2023 12:01pm Note Date/Time November 11, 2023 12:01pm [facility] [address] [place] [address] Psychiatry Progress Note Signed Patient: Shahla Arias MR#: [id number] : 1980 Acct:[id number] Age/Sex: 43 / F Adm Date: 4 Loc: Room: [address] [place] [address] Type : ADM IN Attending Dr: Geo [...] explained Documented By: Geo Loomis MD 11/11/23 1157 Signed By: <Electronically signed by Geo Loomis MD> 11/11/23 1201 [facility] Work Phone: 1(924) 986-190409-06-2024 Progress note Author Geo Loomis [facility] November 10, 2023 1:59pm Note Date/Time November 10, 2023 12:12pm [facility] [address] [place], [place] [id number] Psychiatry Progress Note Signed Patient: Shahla Arias MR#: [id number] 2579 : 1980 Acct:[id number] Age/Sex: 43 / F Adm Date: 4 Loc: 1S Room: 7R6414-9 Type : ADM IN Attending Dr: Geo [...] <Electronically signed by Geo Loomis MD> 11/10/23 1306 [facility] Work Phone: 1(304) 627-905909-05-2024 History and physical note Author Geo Loomis [facility] November 09, 2023 2:13pm Note Date/Time November 09, 2023 1:40pm [facility] [address] [place] [address] Psychiatry H&P Signed Patient: Shahla Arias MR#: [id number] 2579 : 1980 Acct:[id number] Age/Sex: 43 / F Adm Date: 4 Loc: 1S Room: [address] [place] [address] Type: ADM IN Attending Dr: Geo Loomis [...] this with the medical student as notedbeljohanne. [facility] Medical History Essential hypertension Depression with anxiety [...] of carpal tunnel release of both wrists [place] teeth removed History of cholecystectomy Family History [...] Appearance Clear Urine pH 5.0 Ur Specific Brilliant 1.018 Urine Protein Negative Urine Glucose (UA) [...] signed by Geo Loomis MD> 11/09/23 1413 [facility] Work Phone: 1([phone]) 515-101106-27-2024 Evaluation + Plan note* Assessment & Plan Note - Stephanie Webster MD - 08/31/2023 9:04 AM EDTAssociated Problem(s): Cigarette smoker motivated to quit Counseled on smoking cessation at least 4 minutes. [facility] firstSTREET for Boomers & Beyond [id number] Evaluation + Plan note* Assessment & Plan Note - Stephanie Webster MD - 08/31/2023 9:04 AM EDTAssociated Problem(s): Severe claudication ([facility]) Aspirin Plavix and statin Supervised walking program Smoking cessation Follow-up and 3 months. [facility]06-27-2024 Miscellaneous Notes* Assessment & Plan Note - Stephanie Webster MD - 08/31/2023 9:04 AM EDTAssociated Problem(s): Cigarette smoker motivated to quit Counseled on smoking cessation at least 4 minutes. * Assessment & Plan Note - Stephanie Webster MD - 08/31/2023 9:04 AM EDT Associated Problem(s): Severe claudication ([facility]) Aspirin Plavix and statin Supervised walking program Smoking cessation Follow-up and 3 months. documented in this encounterTriHealth06-27-2024 History of Present illness Narrative* Stephanie Webster MD - 08/31/2023 9:00 AM EDT Images from the original note were not included. To: JOSETTE MANDEL, ENVIRONMENTAL SCIENCE PROFESSOR-SAP SPECIALIST HPI: Shahla Arias is a 43 y.o. [...] History: Past Medical History: Diagnosis Date Alcoholic ([facility]) Anxiety Arthritis Asthma Bipolar disorder ([facility]) Depression Fractures GERD (gastroesophageal reflux disease) HPV (human papilloma virus) infection Hyperlipidemia Hypertension Migraine Obesity Postoperative wound infection 05/22/2019 Past Surgical History: Past Surgical History: Procedure Laterality Date APPLICATION WOUND VAC N/A 05/22/2019 Performed by Boni Ogden MD at [facility] N/A 05/13/2019 Performed by [facility] Cardiac catheterization 07/02/2020 Performed by Va Coy MD at [facility] CARD[facility]ATH [facility]S CARPAL TUNNEL RELEASE Bilateral CHOLECYSTECTOMY Coronary angiogram only N/A 07/02/2020 Performed by Va Coy MD at [facility] C[facility]ATH [facility]S DEBRIDEMENT WOUND N/A [...] Resource Strain: Low Risk (08/03/2021) Received from [employer] Overall Financial Resource Strain (CARDIA) Difficulty of Paying Living Expenses: Not hard at all Food Insecurity: No Food Insecurity (08/31/2023) Hunger Screening Food Insecurity - Worry: Never True Food Insecurity - Inability: Never True Transportation Needs: No Transportation Needs (08/03/2021) Received from [employer] PRAPARE - Transportation Lack of Transportation (Medical): No Lack of Transportation (Non-Medical): No Physical Activity: Inactive (05/31/2020) Exercise Vital Sign Days of Exercise per Week: 0 days Minutes of Exercise per Session: 0 min Stress: No Stress Concern Present (05/31/2020) Citizen Of [place] of Occupational Health - Occupational Stress Questionnaire Feeling of Stress : Not at all Social Connections: Socially Isolated (05/31/2020) Social Connection and Isolation Panel [NHANES] Frequency of Communication with Friends and Family: Never Frequency of Social Gatherings with Friends and Family: Never Attends Shinto Services: Never Active Member of Clubs or Organizations: No Attends Club or Organization Meetings: Never Marital Status: Interpersonal Safety: Unknown (06/28/2023) Received from [facility] Safety & Environment Fear of Current or Ex-Partner: Not on file Emotionally Abused: Not on file Physically Abused: Not on file Sexually Abused: Not on file Physically or Sexually Abused: Not on file Housing Instability: Unknown (08/03/2021) Received from [employer] Housing Stability Vital Sign Unable to Pay [...] Stephanie Webster MD, EMA, RPVI, FSVS, FACS [facility] This note was created with the assistance of a speech recognition program. While intending to generate a timely document that accurately reflects the content of the visit, no guarantee can be provided that every grammatical or spelling mistake has been or will be identified or corrected. Thank you for your understanding. documented in this encounterTriHealth06-27-2024 Instructions* Patient Instructions* Stephanie Webster MD - 08/31/2023 9:00 AM EDT Are You Ready To Kick The Habit? Free Tobacco Cessation Resources [facility] Tobacco Treatment Center Services [facility] Tobacco Treatment Centers provide all employees with free tobacco cessation services that include: Counseling to understand nicotine addiction Education about medications that can help you successfully quit Assistance with developing a plan to quit Call to set up an individual appointment or find out when group classes will be held: [facility]: [phone] [facility]: [phone] [facility]: [phone] [facility]: [phone] Quit Smoking Action Plan and Resources [facility] offers an eight-week, online smoking cessation plan to all [facility] employees, regardless of whether [employer] is your medical insurance provider. Go to [email or web address] and click the Health Risk Assessment and Resources link to get started. In the FusionOps menu, click Action Plans instead of Health Risk Assessment to access the Quit Smoking Action Plan. Additional smoking cessation resources are also available to all [facility] employees on the Fusion[employer] web page at www.e-Zassi/quitsmoking. [employer] Tobacco Cessation Program If [employer] is your medical insurance provider, there are more free resources available to you, including: No copays or deductibles on local tobacco cessation counseling services to help you quit Prescription assistance for tobacco cessation medications to help you quit For details about the tobacco cessation program available to [employer] members, go to www.e-Zassi (Search: Tobacco Cessation Program). [place] Tobacco Quit Line 2-049-DRAW-NOW ( ) is a toll-free, telephonic service that helps [place] residents quit smoking and using tobacco. It is staffed by experts who tailor a quit plan for you and provide you with advice. [place] Tobacco Quit Line 1-519-WNPO-NOW ( ) is a toll-free, telephonic service that helps [place] residents quit smoking and using tobacco. It is staffed by experts who tailor a quit plan for you and provide you with advice. Two weeks of nicotine replacement therapy may be provided at no charge, if needed. Additional Resources These national organizations also offer free information and resources to help you quit tobacco: Citizen Of [place] Cancer Society--www.cancer.org/healthy/stayawayfromtobacco Citizen Of [place] Heart Association--www.heart.org (Search: Quit Smoking) Centers for Disease Control and Prevention--www.cdc.gov/tobacco Citizen Of [place] Lung Association--www.lungusa.org documented in this encounterSelect [facility], Incfarmflo [id number] Hospital Discharge instructions Additional Instructions Try your other anxiety medication first For continued anxiety despite your other medication you may take 1 lorazepam every 6-8 hours Follow-up as scheduled with the counseling center I also gave you the hope number to call if needed Return to the ER for thoughts of hurting yourself or others severe anxiety or any other concernsFire[facility] Work Phone: 1(275) 827-309704-29-2024 History of Present illness Narrative* Halina Lizarraga, STEVE-GERONIMO - 07/03/2023 10:30 AM EDT Shahla Arias is a 43 y.o. 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 She is postmenopausal. Hysterectomy: no If [...] 2 Past Medical History: Diagnosis Date Alcoholic ([facility]) Anxiety Arthritis Asthma Bipolar disorder ([facility]) Depression Fractures GERD (gastroesophageal reflux disease) HPV (human papilloma virus) infection Hyperlipidemia Hypertension Migraine Obesity Postoperative wound infection 05/22/2019 Past Surgical History: Procedure Laterality Date APPLICATION WOUND VAC N/A 05/22/2019 Performed by Boni Ogden MD at [facility] N/A 05/13/2019 Performed by Boni [facility]den MD [facility] Cardiac catheterization 07/02/2020 Performed by Va Coy MD at [facility] CARD[facility] CATH [facility]S CARPAL TUNNEL RELEASE Bilateral CHOLECYSTECTOMY Coronary angiogram only N/A 07/02/2020 Performed by Va oCy MD at [facility] C[facility]ATH [facility] DEBRIDEMENT WOUND N/A 05/22/2019 Performed by Boni Ogden MD at [facility] LAPAROSCOPIC SALPINGECTOMY Bilateral 07/20/2022 Performed by Sabina Leung DO at [facility] LIVER BIOPSY Family History Problem Relation [...] use of lubrication w/intercourse. RTO for annual fiber optic central office installer exam and / or PRN. YENNY Heard 07/03/23 3873 YENNY Heard 07/03/23 3477 documented in this encounterTriHealth03-14-2024 History of Present illness Narrative* Stephanie Webster MD - 05/18/2023 3:30 PM EDT Images from the original note were not included. [facility] [address] [facility] [id number] Subjective: Patient ID: Shahla Arias is a 43 y.o. female. Chief Complaint Chief Complaint Patient presents with Hospital Follow-up [facility] History of Present Illness: 43 F [...] Rfl: Past Medical History: Diagnosis Date Alcoholic ([facility]) Anxiety Arthritis Asthma Bipolar disorder ([facility] Depression Fractures GERD (gastroesophageal reflux disease) HPV (human papilloma virus) infection Hyperlipidemia Hypertension Migraine Obesity Postoperative wound infection 05/22/2019 Past Surgical History: Procedure Laterality Date APPLICATION WOUND VAC N/A 05/22/2019 Performed by Boni Ogden MD at [facility] N/A 05/13/2019 Performed by Boni Ogden MD at [facility] Cardiac catheterization 07/02/2020 Performed by Va Coy MD at [facility] C[facility]ATH [facility]S CARPAL TUNNEL RELEASE Bilateral CHOLECYSTECTOMY Coronary angiogram only N/A 07/02/2020 Performed by Va Coy MD at [facility] C[facility]ATH [facility] DEBRIDEMENT WOUND N/A [...] min Stress: No Stress Concern Present (05/31/2020) Citizen Of [place] of Occupational Health - Occupational Stress Questionnaire Feeling of Stress : Not at all Social Connections: Socially Isolated (05/31/2020) Social Connection and Isolation Panel [NHANES] Frequency of Communication with Friends and Family: Never Frequency of Social Gatherings with Friends and Family: Never Attends Shinto Services: Never Active Member of Clubs or [...] EMA Stephanie Webster MD documented in this encounterSelect [facility], Incfarm[facility] [id number] Evaluation note* Encounter Date Diagnosis Assessment Notes [...] understanding and is agreeable with treatment plan Catarizm Other 12-22-2023 Evaluation note* Encounter Date Diagnosis [...] (ICD-10 - F17.218) Smoking cessation strongly encouraged. Catarizm Other 10-17-2023 Evaluation note* Encounter Date Diagnosis [...] understanding and is agreeable to treatment plan Catarizm Other 09-19-2023 Evaluation note* Encounter Date Diagnosis [...] She may need to consider seeing a mortgage or loan underwriter and discussing alternative medication options with her [...] (ICD-10 - F17.218) Smoking cessation strongly encouraged. Catarizm Other 09-11-2023 Evaluation note* Encounter Date Diagnosis Assessment Notes Treatment Notes Treatment Clinical Notes Nov, Essential hypertension (ICD-10 - I10) Catarizm Other 06-21-2023 Evaluation note* Encounter Date Diagnosis [...] (ICD-10 - F17.218) Smoking cessation strongly encouraged. Catarizm Other 03-21-2023 Evaluation note* Encounter Date Diagnosis Assessment Notes Treatment Notes Treatment Clinical Notes May, Vitamin D deficiency (ICD-10 - E55.9) Catarizm Other 03-15-2023 Evaluation note* Encounter Date Diagnosis [...] (ICD-10 - F17.218) Smoking cessation strongly encouraged. Catarizm Other 03-11-2023 Progress note Author Geo Loomis [facility] May 14, 2022 11:17am Note Date/Time May 14, 2022 11: 17am [facility] [address] [place] [address] Psychiatry Progress Note Signed Patient: Shahla Ruelas MR#: [id number] : 1980 Acct:[id number] Age/Sex: 42 / F Adm Date: 3 Loc: Room: [address] [place] [address] Type : ADM IN Attending Dr: Geo [...] By: <Electronically signed by Geo Loomis MD> 05/14/221116 [facility] Work Phone: 1(243) 657-878303-10-2023 Progress note Author Geo Loomis [facility] May 13, 2022 12:04pm Note Date/Time May 13, 2022 10: 47am [facility] [address] [place] [address] Psychiatry Progress Note Signed Patient: Shahla Ruelas MR#: [id number] : 1980 Acct:[id number] Age/Sex: 42 / F Adm Date: 3 Loc: 1S Room: 6T3553-3 Type : ADM IN Attending Dr: Geo [...] signed by Geo Loomis MD> 05/13/22 1204 [facility] Work Phone: 1(203) 577-634103-09-2023 Progress note Author Geo Loomis [facility] May 12, 2022 2:13pm Note Date/Time May 12, 2022 9:57 am [facility] [address] [place] [address] Psychiatry Progress Note Signed Patient: Shahla Ruelas MR#: [id number] : 1980 Acct:[id number] Age/Sex: 42 / F Adm Date: 3 Loc: Room: [address] [place] [address] Type : ADM IN Attending Dr: Geo [...] out of 10. 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 Patient claims that [...] this with the medical student as notedbeljohanne. Patient reported that mood has been improving. [...] <Electronically signed by Geo Loomis MD> 05/12/22 [facility] Work Phone: 1(224) 795-302403-08-2023 History and physical note Author Geo Loomis [facility] May 11, 2022 10:39am Note Date/Time May 11, 2022 10:3 9am [facility] [address] [place] [address] Psychiatry H&P Signed Patient: Shahla Ruelas MR#: [id number] : 1980 Acct:[id number] Age/Sex: 42 / F Adm Date: 3 Loc: Room: [address] [place] [address] Type: ADM IN Attending Dr: Geo Loomis [...] Cloudy A Urine pH 6.0 Ur Specific Brilliant 1.028 Urine Protein 30 H Urine Glucose [...] signed by Geo Loomis MD> 05/11/22 1039 [facility] Work Phone: 1([phone]) 903-756201-10-2023 Evaluation note* Encounter Date Diagnosis Assessment Notes [...] treatment. Call at any time with questions/concerns. Catarizm Other 12-12-2022 History of Present illness Narrative* Dennis Dunn MD - 02/14/2022 12:03 PM EST This encounter was opened in error. Patient was a No-Show. Please disregard. Called, directly to busy signal. Dennis Sarmiento MD documented in this [id number] Evaluation note* Encounter Date Diagnosis Assessment Notes Treatment Notes Treatment Clinical Notes Nov, Mild intermittent asthma without complication (ICD-10 - J45.20) Catarizm Other 06-30-2022 History of Present illness Narrative* [...] and Staging Information: SPECIMEN FOR SURGICAL PATH: [id number] Order: [id number] Collected 07/30/2021 15:54 Status: Final result Visible to patient: Yes (not seen) Dx: Liver cyst; Cyst of gallbladder 0 Result Notes Component Case Report Surgical Pathology Report Case: [id number] Authorizing Provider: Dennis Sarmiento MD Collected: 07/30/2021 1554 Ordering Location: [facility] Main OR Received: 08/03/2021 1030 Pathologist: Marc [...] identified lymph nodes or masses grossly. Sections: Spool Carrier A1. Fibrotic tissue (X) B. Requisitioned as [...] of tumor, it is inked green. Sections: Spool Carrier B1. Cystic lesion, fibrotic area (X) B2-B6. [...] a 1 x 0.8 x 0.5 cm red-barrteo and yellow fibroadipose tissue Sections: In toto C1. Cystic nodule (X) C2. Fibroadipose tissue (X) Malek Alassfar, M.D Clinical Information Resulting Agency [facility] [place] Collected: 07/30/21 15:54 Last Resulted: 08/05/21 08:46 Order Details View Encounter Lab and Collection Details Routing Result History Scans on Order [id number] Document on 08/05/2021 8:46 AM by Marc Ricketts, Treatment Recommendations and NCCN: Plan no surgical intervention needed at this time. Follow up in 02/[address] Sarmiento The above recommendations were based on NCCN guidelines, as well as consideration of current national standards and review of the literature. Nicole Garcia RN documented in this [id number] [facility] - [facility] [...] 4 mg/0.1 mL nasal liquid Use 1 Brinnon in one nostril (alternate sides) as needed [...] Hgb Hct MCV RDW Plt ??? 08/03/21 005 6.5 ??? 2.97 ??? 8.6 ??? 24.9 [...] ??? 3 ??? 0.65 ??? 8.7 ? 08/02/2111 138 ??? 4.2 ??? 106 ??? 25 [...] ??? T Prot (more content not included)...[employer] [id number] Evaluation note* Encounter Date Diagnosis Assessment Notes [...] I see her back in 6 months. Catarizm Other 06-13-2022 History of Present illness Narrative* Dennis Dunn MD - 08/16/2021 1:09 PM EDT Phone numbers Preferred Documentation: Mode: Telephone Patient Patient Work Phone: Patient Cell Preferred phone: [phone] Consent: I confirmed patient understanding of the risks and benefits of telehealth visits and obtained consent to proceed with the telehealth visit. Location of Patient: Home of patient Surgery Follow Up Feeling well since surgery. Still hurting but she is starting to feel better. [facility] week for staple removal. SPECIMEN FOR SURGICAL PATH: [id number] Order: [id number] Collected 07/30/2021 15:54 Status: Final result Visible to patient: Yes (not seen) Dx: Liver cyst; Cyst of gallbladder 0 Result Notes Component Case Report Surgical Pathology Report Case: [id number] Authorizing Provider: Dennis Sarmiento MD Collected: 07/30/2021 1554 Ordering Location: [facility] Main OR Received: 08/03/2021 1030 Pathologist: Marc [...] identified lymph nodes or masses grossly. Sections: Spool Carrier A1. Fibrotic tissue (X) B. Requisitioned as [...] of tumor, it is inked green. Sections: Spool Carrier B1. Cystic lesion, fibrotic area (X) B2-B6. 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 Follow up in 6 months with a televisit in person if needed. Dennis Sarmiento MD, FACS documented in this [id number] History of Present illness Narrative* Josephine Osborn MD - 08/10/2021 3:25 PM EDT Images from the original note were not included. [facility] New Patient - History and Physical Patient [...] 4 mg/0.1 mL nasal liquid Use 1 Brinnon in one nostril (alternate sides) as needed [...] RBC Hgb Hct MCV RDW Plt 08/03/21 005 6.5 2.97 8.6 24.9 84 15.4 245 08/02/21 001 7.8 2.87 8.0 24.0 84 15.5 186 08/01/216 7.6 2.66 7.6 22.3 84 15.6 163 07/31/21 0248 9.5 3.45 9.9 28.7 83 15.1 207 07/31/21 0043 9.9 30.6 Basic Metabolic Panel (Last 5 results in the past 3 years) Na K Cl CO2 Gap Glu BUN Cr Ca 08/03/2149 138 3.8 103 25 14 88 3 0.65 8.7 08/02/2111 138 4.2 106 25 11 85 [...] 4.5 2.7 0.20 0.6 43 29 26 08/02/2111 4.4 2.6 0.20 0.8 35 34 37 [...] less than 10cc serous fluid in bulb. Ramana in place, incision healing Lymphatic: No cervical or supraclavicular adenopathy noted Musculoskeletal: no traumatic injuries, regular rom Neurologic: gcs 15, a and o Assessment: 41 year old female here for f/u sp cystectomy and yovani-en-y hepaticojejunostomy Plan -drain removed in clinic w/o issue -ramana to remain for another 1-2 wks until f/u visit w/Dr. Samriento -pt has phone visit w/Dr. Sarmiento on 08/16/21. Can consider switching to in- person visit for stapleremoval Patient discussed w/attending Dr. Lrason Total length of time 30 (minutes) of the encounter and more than 50% was spent counseling the patient. Josephine Osborn MD General Surgery Resident, PGY-4 * Gem Flores - 08/10/2021 2:48 PM EDT Patient was identified by name and date of . Gem Flores Patient at risk for falls:No Falls Risk protocol implemented: No documented in this [id number] Hospital Discharge instructions* Discharge Instructions* eMenakshi Weeks PA-C - 08/04/2021 8:31 AM EDT GENERAL SURGERY DISCHARGE INSTRUCTIONS C O N F I D E N T I A L I N F O R M A T I O N Shahla Ruelas [id number] The following is a brief overview of [...] Other SIGNED: Registered Nurse documented in this [id number] History of Present illness Narrative* Meenakshi Weeks [...] vital signs. Holding home losartan. Pulm: Resp linesperson protocol, Encourage IS x10/hr, OOB and ambulation GI: Continue GI soft diet. Cont nexium daily, carafate. /FEN: HLIV Endocrine: no hx of glyemic issues ID: No abx indicated Proph: lovenox daily and SCDs Dispo: DC to home today Patient was seen with chief resident, Dr. Osborn and d/w Attending Surgeon Dr. Sarmiento. --- Meenakshi Weeks PA-C General Surgery PA-C * Varsha Solis RN - 08/03/2021 11:51 [...] discharge planning needs as warranted. MILAN Ferrell, wholesale buyer * Nicole Bello PA-C - 08/03/2021 7:19 [...] 08/03/21 0050 1.9 08/02/21 0012 1.9 08/02/21 001 138 4.2 [...] vital signs. Holding home losartan. Pulm: Resp linesperson protocol, Encourage IS x10/hr, OOB and ambulation [...] Bello PA-C General Surgery PGY3 Blue Pager: [phone] * Tamara Jurado MD - 08/02/2021 8:53 AM EDT Images from the original note were not included. [facility] PROGRESS NOTE Interval history/Events: No acute events overnight Pain adequately controlled with PROJECT ADMINISTRATIVE ASSISTANT Tolerating clear liquid Using IS Drain output [...] vital signs. Holding home losartan. Pulm: Resp linesperson protocol, Encourage IS x10/hr, OOB and ambulation GI: FLD. Cont nexium daily, carafate. /FEN: cont LR at 75/hr. TOV today. Endocrine: no hx of glyemic issues ID: No abx indicated Proph: lovenox daily and SCDs Dispo: Continue on RNF Patient d/w Attending Surgeon Dr. Sarmiento --- Tamara Jurado MD General Surgery PGY3 Blue Pager: [phone] * Madeleine Hooks MD - 08/01/2021 8:06 AM EDT Images from the original note were not included. [facility] SUR[facility] PROGRESS NOTE Interval history/Events: No acute events overnight Pain adequately controlled with PROJECT ADMINISTRATIVE ASSISTANT Mild nausea but improved Tolerating clear liquid [...] MCV RDW Plt PT aPTT INR 08/01/21 000 7.6 2.66 7.6 22.3 84 15.6 163 07/31/21247 9.5 3.45 9.9 28.7 83 15.1 207 07/31/21 0043 9.9 30.6 07/30/212009 9.5 29.5 07/30/21 1738 12.2 37.4 07/30/21 164 11.9 36.6 WBC/Diff None Basic Metabolic Panel [...] PRN .NO ORAL PAIN MEDS WHILE ON PROJECT ADMINISTRATIVE ASSISTANT/EPIDURAL 1 Each PRN naloxone 0.4 mg PRN [...] 08/01/2021. Plan: Neuro/Pain: scheduled tylenol, robaxin. Dilaudid PROJECT ADMINISTRATIVE ASSISTANT. Cont home trazodone and fluoxetine CV: Monitor vital signs Pulm: Resp linesperson protocol, Encourage IS x10/hr, OOB and ambulation GI: NPO for possible PTHC today. Consult IR for PTHC given bile leak ( discussed with ED vice president sales and marketing who will discuss with IR team). Cont nexium daily, carafate /FEN: cont LR at 75/hr. Voiding spontaneously Endocrine: no hx of glyemic issues ID: No abx indicated Proph: lovenox daily and SCDs Dispo: Continue on RNF Patient d/w Attending Surgeon Dr. Sarmiento --- Madeleine Hooks MD General Surgery PGY3 Blue Pager: [phone] * Tamara Jurado MD - 07/31/2021 8:55 AM EDT Images from the original note were not included. [facility] PROGRESS NOTE Subjective - NAEON - some abdominal pain on PROJECT ADMINISTRATIVE ASSISTANT - some indigestion this morning - has [...] Cr Ca Mg PO4 07/31/21 0248 1.5 07/31/21247 135 4.6 106 22 12 [...] PRN .NO ORAL PAIN MEDS WHILE ON PROJECT ADMINISTRATIVE ASSISTANT/EPIDURAL 1 Each PRN naloxone 0.4 mg PRN [...] for nausea; continue carafate - Tylenol, Robaxin, PROJECT ADMINISTRATIVE ASSISTANT - LR 75, daily labs - oob [...] Torsten Jurado MD PGY1 documented in this [id number] Note* Care Plan Note - Oly High [...] adult patient will be met Outcome: Progressing [id number] Miscellaneous Notes* Care Plan Note - Oly [...] 0944 by Keiko Zhang RN Outcome: Progressing * [...] year old female Surgical Contact Serial Number: [id number] Preoperative Diagnosis: Cyst of gallbladder [K82.8] Liver [...] Mercedes Soliman; Anya Fletcher; Juan Jon RN Senior Systems Software Engineer Nurse: Vitaly Reyes, VITA; Kraig Espinal; Rosa Seo RN; Yumiko Haji, VITA; Irina Marie, VITA; Juany Higginbotham RN Oxygen Equipment Preparer: Madeleine Hooks MD Anesthesia: General Anesthesiologist: Neil Rodriguze MD; Uriel Hathaway DO CAA: Rina Childress VEHICLE TECHNICIAN: Adrian Bermudez APRN-VEHICLE TECHNICIAN; Jewel Vogel APRN-VEHICLE TECHNICIAN; Mariel Ireland APRN-SALVADOR [place]: Al Mascorro MD; Jean Ojeda MD Specimen(s): [...] Diamond Larson MD Co-Surgeon: Dennis Sarmiento MD Slip Cover Maker: Madeleine Hooks MD (general surgery resident) Anesthesiologist: [...] were discussed with the patient and/or legal rental sales representative. The risks, benefits and alternatives were reviewed. Questions regarding anesthesia were answered. Patient and/or legal rental sales representative knows such anesthetics and procedures [...] were discussed with the patient and/or legal rental sales representative. The risks, benefits and alternatives were reviewed. Questions regarding blood transfusions were answered. The patient /or the patient s legal rental sales representative agree with the plan for transfusion of blood and/or blood components. documented in this [id number] Note* Care Plan Note - Antoinette Elmore [...] adult patient will be met Outcome: Progressing [id number] Consult note* Lavinia Jones PT - 08/03/2021 [...] Dep Max Mod Min CG CS DS MD I Comment Supine to sit x Sit [...] With Patients permission ordered no equipment via [employer] Order. If any questions contact [facility] DME Provider at [phone]. 6 Clicks Basic Mobility PT 08/03/2021 Difficulty [...] Care Lavinia Jones PT , DPT, CLT #[id number] NA = Not Assessed, I = Independent, MD = Modified Independent, Sup = Supervised, Set up = Physical Assistance for Set-up Only, Min = Minimal Assistance, Mod = Moderate Assistance, Max = Maximal assistance; Dep = Dependent; AROM = Active Range of Motion; PROM = Passive Range of Motion; MMT = Manual Muscle Test [id number] Consult note* Lavinia Jones PT - 08/03/2021 [...] Dep Max Mod Min CG CS DS MD I Comment Supine to sit x Sit [...] With Patients permission ordered no equipment via [employer] Order. If any questions contact [facility] DME Provider at [phone]. 6 Clicks Basic Mobility PT 08/03/2021 Difficulty [...] Care Lavinia Jones, PT , DPT, CLT #[phone] NA = Not Assessed, I = Independent, MD = Modified Independent, Sup = Supervised, Set [...] Dep Max Mod Min CG CS DS MD I Set-Up Comment Feeding x Grooming/Hygiene x Bathing:UB x Bathing:LB x Dressing:UB x Dressing: LB x Toileting x Transfers/Bed Mobility: Assistance Level NA Dep Max Mod Min CG CS DS MD I Set-Up Comment Toilet Transfers x Bed Transfers x Bed Mobility x Dynamic standing x Endurance for Self Care: Good Static Sitting Balance: WFL Dynamic Sitting Balance: WFL Patient/Family Education: Instructed patient in roles of therapy Patient up in bed with call light in reach. . DME: With Patients permission ordered no equipment via [employer] Order. If any questions contact [facility] DME Provider at [phone]. Progressive Mobility Level: 4 6 Clicks Daily [...] Guard Assist/Supervision 4 - Non = Modified [place]/Independent ASSESSMENT: Patient is functionally appropriate for discharge [...] NA = Not Assessed, I = Independent, MD = Modified Independent, Sup = Supervised, Set [...] OBJECTIVE: Appearance: drain x 1, reyes, IV, PROJECT ADMINISTRATIVE ASSISTANT Behavior: Awake, pleasant, cooperative, agreeable to therapy Pain: Site/Location: stomach; Pain Scale: 6/10 Pain Relief Interventions Implemented: Positioning and Rest, pt utilizes PROJECT ADMINISTRATIVE ASSISTANT PRN, RN aware Mobility NA Dep Max Mod Min CG CS DS MD I Comment Roll to right sidelying x [...] NA = Not Assessed, I = Independent, MD = Modified Independent, Sup = Supervised, Set [...] and benefits of treatment Appearance: Oxygen, IV, PROJECT ADMINISTRATIVE ASSISTANT, Drain JANETT and Reyes Alertness: Drowsy Affect: flat Cooperation/Behavior: cooperative Communication: Able to express needs with increased processing time Pain: Pain ratin/10, Location: abdomen Pain Relief Interventions Implemented: Positioning and activity Self Care: Assistance Level Dep Max Mod Min CG CS DS MD I Set-Up Comment Feeding x Grooming/Hygiene x Standing sink side Bathing:UB x Anticipated, recommend seated Bathing:LB x Anticipated, recommend seated Dressing:UB x Dressing: LB x Socks Toileting x Reyes Transfers/Bed Mobility: Assistance Level Dep Max Mod Min CG CS DS MD I Set-Up Comment Toilet Transfers Bed Transfers [...] Guard Assist/Supervision 4 - Non = Modified [place]/Independent ASSESSMENT: Anticipate patient will be appropriate for [...] NA = Not Assessed, I = Independent, MD = Modified Independent, Sup = Supervised, Set [...] you Patient Identified 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 0 steps to bedroom/bathroom Assistance available: Spouse can assist PRN Equipment available: none OBJECTIVE: Appearance: Oxygen, IV, PROJECT ADMINISTRATIVE ASSISTANT, Drain and Reyes Behavior: Drowsy Oriented x 4 Follows multple step commands consistently and without cues Pain: Site/Location: abdomen; Pain Scale: 7/10 Pain Relief Interventions Implemented: Encouraged patient to use PROJECT ADMINISTRATIVE ASSISTANT Passive ROM: Not formally tested however observed [...] With Patients permission ordered no equipment via [employer] Order. If any questions contact [facility] DME Provider at [phone]. 6 Clicks Basic Mobility PT 07/31/2021 Difficulty [...] NA = Not Assessed, I = Independent, MD = Modified Independent, Sup = Supervised, Set up = Physical Assistance for Set-up Only, Min = Minimal Assistance, Mod = Moderate Assistance, Max = Max assistance; Dep = Dependent; AROM = Active Range of Motion; PROM = Passive Range of Motion; MMT = Manual Muscle Test; LE = Lower Extremity documented in this [id number] Consult note* Sharee Herndon, OT - 08/03/2021 [...] Dep Max Mod Min CG CS DS MD I Set-Up Comment Feeding x Grooming/Hygiene x Bathing:UB x Bathing:LB x Dressing:UB x Dressing: LB x Toileting x Transfers/Bed Mobility: Assistance Level NA Dep Max Mod Min CG CS DS MD I Set-Up Comment Toilet Transfers x Bed Transfers x Bed Mobility x Dynamic standing x Endurance for Self Care: Good Static Sitting Balance: WFL Dynamic Sitting Balance: WFL Patient/Family Education: Instructed patient in roles of therapy Patient up in bed with call light in reach. . DME: With Patients permission ordered no equipment via [employer] Order. If any questions contact [facility] DME Provider at [phone]. Progressive Mobility Level: 4 6 Clicks Daily [...] Guard Assist/Supervision 4 - Non = Modified [place]/Independent ASSESSMENT: Patient is functionally appropriate for discharge [...] NA = Not Assessed, I = Independent, MD = Modified Independent, Sup = Supervised, Set up = Physical Assistance for Set-up Only, Min = Minimal Assistance, Mod = Moderate Assistance, Max = Max assistance; Dep = Dependent; AROM = Active Range of Motion;PROM=Passive Rangeof Motion; MMT = Manual Muscle Test; UB = Upper Body; LB = Lower Body [id number] Note* Care Plan Note - Rayshawn Shaw [...] adult patient will be met Outcome: Progressing [id number] Note* Care Plan Note - Keiko Zhang [...] 08/02/2021943 by Keiko Zhang RN Outcome: Progressing [id number] Note* Care Plan Note - Dinorah Palencia [...] adult patient will be met Outcome: Progressing [id number] Consult note* Zoya Anna, PT - 08/01/2021 3:20 PM EDT PHYSICAL THERAPY PROGRESS SUMMARY Patient seen from 1452 to 1520 on 8A unit for 28 minute treatment. SUBJECTIVE: Patient Subjective/Goals: It feels good to get up and get out OBJECTIVE: Appearance: drain x 1, reyes, IV, PROJECT ADMINISTRATIVE ASSISTANT Behavior: Awake, pleasant, cooperative, agreeable to therapy Pain: Site/Location: stomach; Pain Scale: 6/10 Pain Relief Interventions Implemented: Positioning and Rest, pt utilizes PROJECT ADMINISTRATIVE ASSISTANT PRN, RN aware Mobility NA Dep Max Mod Min CG CS DS MD I Comment Roll to right sidelying x [...] NA = Not Assessed, I = Independent, MD = Modified Independent, Sup = Supervised, Set up = Physical Assistance for Set-up Only, Min = Minimal Assistance, Mod = Moderate Assistance, Max = Maximal assistance; Dep = Dependent; AROM = Active Range of Motion; PROM = Passive Range of Motion; MMT = Manual Muscle Test [id number] Note* Care Plan Note - Dinorah Palencia [...] adult patient will be met Outcome: Progressing [id number] Consult note* Josephine Hunter OT - 07/31/2021 1:59 PM EDTAssociated Order(s): [...] Procedure: ENDOSCOPIC ULTRASOUND, UPPER, GENERAL ANESTHESIA; Surgeon: Leobadro Barry MD; Location: [facility]; Service: [...] and benefits of treatment Appearance: Oxygen, IV, PROJECT ADMINISTRATIVE ASSISTANT, Drain JANETT and Reyes Alertness: Drowsy Affect: flat Cooperation/Behavior: cooperative Communication: Able to express needs with increased processing time Pain: Pain ratin/10, Location: abdomen Pain Relief Interventions Implemented: Positioning and activity Self Care: Assistance Level Dep Max Mod Min CG CS DS MD I Set-Up Comment Feeding x Grooming/Hygiene x Standing sink side Bathing:UB x Anticipated, recommend seated Bathing:LB x Anticipated, recommend seated Dressing:UB x Dressing: LB x Socks Toileting x Reyes Transfers/Bed Mobility: Assistance Level Dep Max Mod Min CG CS DS MD I Set-Up Comment Toilet Transfers Bed Transfers [...] Guard Assist/Supervision 4 - Non = Modified [place]/Independent ASSESSMENT: Anticipate patient will be appropriate for [...] NA = Not Assessed, I = Independent, MD = Modified Independent, Sup = Supervised, Set up = Physical Assistance for Set-up Only, Min = Minimal Assistance, Mod = Moderate Assistance, Max = Max assistance; Dep = Dependent; AROM = Active Range of Motion;PROM=Passive Rangeof Motion; MMT = Manual Muscle Test; UB = Upper Body; LB = Lower Body [id number] Consult note* Heladio Chun, PT - 07/31/2021 [...] you Patient Identified 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 0 steps to bedroom/bathroom Assistance available: Spouse can assist PRN Equipment available: none OBJECTIVE: Appearance: Oxygen, IV, PROJECT ADMINISTRATIVE ASSISTANT, Drain and Reyes Behavior: Drowsy Oriented x 4 Follows multple step commands consistently and without cues Pain: Site/Location: abdomen; Pain Scale: 7/10 Pain Relief Interventions Implemented: Encouraged patient to use PROJECT ADMINISTRATIVE ASSISTANT Passive ROM: Not formally tested however observed [...] With Patients permission ordered no equipment via [employer] Order. If any questions contact [facility] DME Provider at [phone]. 6 Clicks Basic Mobility PT 07/31/2021 Difficulty [...] NA = Not Assessed, I = Independent, MD = Modified Independent, Sup = Supervised, Set up = Physical Assistance for Set-up Only, Min = Minimal Assistance, Mod = Moderate Assistance, Max = Max assistance; Dep = Dependent; AROM = Active Range of Motion; PROM = Passive Range of Motion; MMT = Manual Muscle Test; LE = Lower Extremity [id number] Note* Care Plan Note - Dinorah Palencia [...] adult patient will be met Outcome: Progressing [id number] Nurse Surgical operation note* Irina Marie RN - 07/30/2021 7:58 PM EDT One 5fr stent placed in left hepatic duct, one 8 fr stent placed in accessory duct by Dr. Sarmiento intraoperatively. [id number] Nurse Note* Irina Marie RN - 07/30/2021 7:58 PM EDT One 5fr stent placed in left hepatic duct, one 8 fr stent placed in accessory duct by Dr. Sarmiento intraoperatively. documented in this [id number] Note* Brief Operative Note - Madeleine Hooks MD - 07/30/2021 2:08 PM EDT Brief Operative Note MAIN OR 07 Shahla Ruelas 41 year old female Surgical Contact Serial Number: [id number] Preoperative Diagnosis: Cyst of gallbladder [K82.8] Liver [...] Mercedes Soliman; Anya Fletcher; Juan Jon RN Senior Systems Software Engineer Nurse: Vitaly Reyes, VITA; Kraig Espinal; Rosa Seo RN; Yumiko Haji, VITA; Irina Marie, VITA; Juany Higginbotham, banking managerOxygen Equipment Preparer: Madeleine Hooks MD Anesthesia: General Anesthesiologist: Neil Rodriguez MD; Uriel Hathaway DO CAA: Rina Childress VEHICLE TECHNICIAN: Adrian Bermudez, ENVIRONMENTAL SCIENCE PROFESSOR-VEHICLE TECHNICIAN; Jewel Vogel ENVIRONMENTAL SCIENCE PROFESSOR-VEHICLE TECHNICIAN; Mariel Ireland ENVIRONMENTAL SCIENCE PROFESSOR-VEHICLE TECHNICIAN [place]re: Al Mascorro MD; Jean Ojeda MD Specimen(s): [...] by Madeleine Hooks MD 07/30/2021 11:09 PM [id number] Note* OP Note - Diamond Larson MD [...] Diamond Larson MD Co-Surgeon: Dennis Sarmiento MD Slip Cover Maker: Madeleine Hooks MD (general surgery resident) Anesthesiologist: [...] Larson MD [facility] Work Phone: [phone] History and physical note* Madeleine Hooks MD [...] possible Madeleine Hooks MD 07/30/2021 11:08 AM [id number] History and physical note* Madeleine Hooks MD [...] MD 07/30/2021 11:08 AM documented in this [id number] Note* Anesthesia Attestation - Uriel Hathaway DO - 07/30/2021 11:01 AM EDT Anesthesia Attestation ATTESTATION OF INFORMED CONSENT FOR ANESTHESIA Anesthesia options were discussed with the patient and/or legal rental sales representative. The risks, benefits and alternatives were reviewed. Questions regarding anesthesia were answered. Patient and/or legal rental sales representative knows such anesthetics and procedures may be performed by Resident physicians, Certified Anesthesiologist Assistants, or Certified Nurse Anesthetists under the supervision of a physician. The patient /or the patient s legal representativeagree with the plan for anesthesia. [facility] [employer] Work Phone: 1(543) 214-809905-27-2022 Note* Blood Attestation - Uriel Hathaway DO - 07/30/2021 11:01 AM EDT Blood Attestation ATTESTATION OF INFORMED CONSENT FOR BLOOD The transfusion of blood and/or blood components were discussed with the patient and/or legal rental sales representative. The risks, benefits and alternatives were reviewed. Questions regarding blood transfusions were answered. The patient /or the patient s legal rental sales representative agree with the plan for transfusion of blood and/or blood components. [facility] [id number] Miscellaneous Notes* OP Note - Dennis Sarmiento MD - 07/30/2021 8:03 AM EDT Name: SHAHLA RUELAS MR#: [id number] ENC#: [id number] Date of Procedure: 07/30/2021 ATTENDING SURGEON: Dennis [...] 6. Direct Biliary endoscopy with choledochoscope (CPT 60449). 7. Resection of hepatic duct polyp 8. Intraoperative cholangiogram. 9. Yovani-en-Y hepaticojejunostomy x2. 10. Vascularized omental pledget to anastomosis. 11. Intraoperative ultrasound of the liver and hepatic vessels (CPT: 95249) ANESTHESIA: General with endotracheal anesthesia. OPERATIVE INDICATIONS: [...] transected. A jejunojejunostomy was performed in a odyk-fo-ukli fashion with 3-0 Vicryl and 2-0 Ethibond [...] 3-0 PDS suture. Next, over both a 5-Pakistani pediatric feeding tube for the smaller hepatic duct and an 8-Pakistani pediatric feeding tube for the larger one, [...] is cleaned and dried. Prior to closure,a 19-Pakistani round José drain was placed posterior to [...] Dict: 07/31/2021 22:40:26 TRANS: 08/01/2021 00:30:11 JOB: [id number] [employer]ictJob#: [id number] documented in this [id number] Note* OP Note - Dennis Sarmiento MD - 07/30/2021 8:03 AM EDT Name: SHAHLA RUELAS MR#: [id number] [facility]#: [id number] Date of Procedure: 07/30/2021 ATTENDING SURGEON: Dennis [...] 6. Direct Biliary endoscopy with choledochoscope (CPT 23501). 7. Resection of hepatic duct polyp 8. Intraoperative cholangiogram. 9. Yovani-en-Y hepaticojejunostomy x2. 10. Vascularized omental pledget to anastomosis. 11. Intraoperative ultrasound of the liver and hepatic vessels (CPT: 13978) ANESTHESIA: General with endotracheal anesthesia. OPERATIVE INDICATIONS: [...] transected. A jejunojejunostomy was performed in a gqgu-kz-fxqd fashion with 3-0 Vicryl and 2-0 Ethibond [...] 3-0 PDS suture. Next, over both a 5-Pakistani pediatric feeding tube for the smaller hepatic duct and an 8-Pakistani pediatric feeding tube for the larger one, [...] is cleaned and dried. Prior to closure,a 19-Pakistani round José drain was placed posterior to [...] Dict: 07/31/2021 22:40:26 TRANS: 08/01/2021 00:30:11 JOB: [id number] [employer]#: [id number] [facility] Work Phone: [phone]) 441-414105-13-2022 Miscellaneous Notes* Telephone Encounter - Trista Estrella RN - 07/16/2021 2:28 PM EDT Spoke with patient and advised that she start Ferrous Sulfate 325 mg every other day after surgery and follow up with pcp. Advised patient to call [facility] if unable to tolerate oral iron. Patient verbalized understanding. * Telephone Encounter - Leandra Snyder RP - 07/16/2021 2:11 PM EDT [facility] Staff, Please contact patient re the following issue. We received a referral for anemia management from [facility] (patient to have surgery on 07/30). [...] hepatectomy partiel lobectomy 07/30 documented in this [id number] Instructions* Patient Instructions* Marcella Luevano APRN-SAP SPECIALIST - 07/15/2021 1:12 PM EDT On the [...] for pain. Please hold all Vitamin E, Wauseon 3, fish oil and herbal supplements for 1 week prior to surgery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 [address] [place] [address] [place] [address]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 08/07/21 Reason for Visit (unrecogniz ed section and content) Reason Onset Date Comments Anemia 07/16/2021 Consult with specialist 07/16/2021 Reason Comments Post-op Follow-up Reason Comments Limited or partial exam Specialty Diagnoses / Procedures Referred By Vinayak t Referred To Contact General Surgery Diagnoses Cyst of gallbladder History of biliary stent insertion Johan Stephens MD [address] [place] [address] [place] [id number] [facility] [address] [place] [address] Referral ID Status Reason Start Date Expiration Date V isits Requested Visits Authorized [id number] Authorized 04/28/2021 10/25/2021 3 3 Reason Onset Date Comments No Show 02/14/2022 Reason Comments 3 month f/u No testing Severe claudica tion Sometimes with walking toes go numb bilateral feet. States pain is getting better. Has been able to walk longer without pain Reason Comments Annual Exam Reason Comments PVD Testing done here at [facility] 3 months ago Reason Comments Hospital Follow-up [facility] Reason Comments 3 month follow up [...] High RN) 0530 (Given - Provider: Oly High, VITA)1400 (Due)2200 (Due) magnesium sulfate in dextrose 5 % 100 mL ivpb 1,000 mg 100 mL (COMPLETED) 1,000 mg, Intravenous, ONCE, 1 dose, On Mon08/03/21 at 0600 0649 (IV New Bag - Provider: Rayshawn Shaw, RN) methocarbamol (ROBAXIN) tablet 750 mg, Oral, [...] Antoinette Elmore RN)1632 (Given - Provider: Antoinette Elmore, VITA)2214 (Given - Provider: Oly High, VITA) 0530 (Given - Provider: Oly High RN)0920 (Given - Provider: Antoientte Elmore RN) Promethazine HCl (PHENERGAN) 6.25 MG/5ML [...] BE BASED ON THE PRIMARY CLINICAL RECORDS. [facility] provides no warranty or guarantee of the accuracy or completeness of information in this document.
[2024-11-12] MEDS: BISACODYL 5 MG TABLET 10 MG PO (14:18)
== END 2024-11-12 14:22 | disposition home or self-care (01) ==
PROVIDERS: Emergency Provider Emergency Medicine; PCP Nurse Practitioner Family
DX: K58.1 Irritable bowel syndrome with constipation (principal); I10 Essential (primary) hypertension; Z79.02 Long term (current) use of antithrombotics/antiplatelets; Z79.84 Long term (current) use of oral hypoglycemic drugs; Z98.51 Tubal ligation status; Z90.49 Acquired absence of other specified parts of digestive tract
CPT/HCPCS: 74018; 99283

== ENCOUNTER 2025-02-12 04:56 | Emergency (ER) | payer MEDICAID, SELFPAY ==
--- OUTSIDE RECORDS SUMMARY | 2023-11-01 05:15 | XMS_ITS ---
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 Encounters Encounter Location Date Provider Diagnosis Dental Main [address] [place], [place] [id number] 11/01/2023 Maria Fernanda Pa Plan Of Treatment No Information Progress Notes * Marisel ARIASAmarilisOB:1980 ([age] yo F)Acc No.[id number]:11/01/2023 Patient:?Laura Arias :?Maria Fernanda Pa DDSDOB:1980???Age:43 Y ???Sex:FemaleDate:4Phone:[phone]:[address] [facility], [address] [id number] Subjective: * Chief Complaints: * N P Comp Exam Billing Information: * Procedure Codes: * Electronic signature of Maria Fernanda Pa DDS on 02/12/2025 at 05:34 AM ESTSign off status: Pending * Provider: Tera Pa DDS Date: 0 11/01/2023 Generated for Printing/Faxing/eTransmitting on:?02/12/2025 05:34 AM EST
--- OUTSIDE RECORDS SUMMARY | 2023-11-02 07:45 | XMS_ITS ---
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 Encounter Location Date Provider Diagnosis Dental Main [address] [place], [place] [phone] 11/02/2023 Maria Fernanda Pa Plan Of Treatment No Information Progress Notes * Vaishali ARIASOB:1980 ([age] yo F)Acc No.[id number]:11/02/2023 Patient:?Laura Arias :?Maria Fernanda Pa DDSDOB:1980???Age:43 Y ???Sex:FemaleDate:4Phone:[phone]:[address] [facility], [address] [place], [phone] Subjective: * Chief Complaints: * N P Comp Exam * Electronic signature of Maria Fernanda Pa DDS on 02/12/2025 at 05:35 AM ESTSign off status: Pending * Provider: Tera Pa DDS Date: 0 11/02/2023 Generated for Printing/Faxing/eTransmitting on:?02/12/2025 05:35 AM EST
--- OUTSIDE RECORDS SUMMARY | 2025-02-10 09:53 | XMS_ITS ---
Author Organization 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 Name Role Phone JOSETTE MENDOZA CNP Primary Care Provider [phone] Josette Mendoza [phone] Encounters Encounter Location Date Provider Diagnosis Electronic Health Records [address] [place] [address] 02/10/2025 Josette Mendoza Plan Of Treatment Next Appt Details Provider Name:Josette williamson, 06/11/2025 09:00:00 AM, [address] [place], [address], Progress Notes * HUGOMarisely ADOB:1980 (45 yo F)Acc No.[id number]:02/10/2025 Patient:?Laura ARIAS :1980???Age:45 Y???Sex:FemalePhone:[phone] Address:[address] [place], [address] Subjective: * Chief Complaints: * * Medical History: * Surgical History: * Hospitalization/Major Diagno stic Procedure: * Medications: Objective: * Vitals: * Physical Examination: ??? Assessment: Plan: * Treatment: * Procedure Codes: * Preventive Medicine: ??Screenings/Counseling:?TOBACCO ACTION PLAN?Patient counselled on the dangers of tobacco use and urged to quit.? 06/19/2024 - -Date counseled * true * Date:?Generated for Printing/Faxing/eTransmitting on:?02/12/2025 05:34 AM EST
[2025-02-12 05:00] VITALS: BP 116/75; PULSE 68; TEMP 36.7; O2SAT 100; BMI 37.1
--- NOTE | 2025-02-12 05:22 | ED.DENTAL1 ---
HPI - Dental/Oral General Chief complaint: Dental/Oral Stated complaint: BAD TOOTH ACHE Time Seen by Provider: 02/12/25 05:17 Source: patient Mode of arrival: walk-in Limitations: no limitations History of Present Illness HPI Narrative: presents complaining of dental pain. States she is scheduled to see dentist next week to have it pulled but tonight has developed pain that is radiating into her ear and cheek bone. No fever or obvious swelling Teeth map:  1. dental caries Related Data Home Medications ?Medication ?Instructions ?Recorded ?Confirmed gabapentin 300 mg capsule 600 mg PO TID 05/09/23 10/14/24 olmesartan 20 1 tab PO DAILY 05/09/23 10/14/24 mg-hydrochlorothiazide 12.5 mg tablet omeprazole 40 mg capsule,delayed 40 mg PO .BIDAC 05/09/23 10/14/24 release albuterol sulfate 90 mcg/actuation 2 puff inhalation Q4H PRN 02/12/24 10/14/24 aerosol inhaler shortness of breath or wheezing cholecalciferol (vitamin D3) 50 50 mcg PO DAILY 02/12/24 10/14/24 mcg (2,000 unit) tablet lorazepam 1 mg tablet 1 mg PO TID PRN anxiety 02/12/24 10/14/24 olanzapine 5 mg tablet 5 mg PO BID PRN agitation 02/12/24 10/14/24 aspirin 81 mg tablet,delayed 81 mg PO DAILY 05/21/24 10/14/24 release bupropion HCl 300 mg 24 hr tablet, 300 mg PO DAILY 05/21/24 10/14/24 extended release hydroxyzine pamoate 25 mg capsule 75 mg PO TID PRN anxiety 05/21/24 10/14/24 Held on 10/14/24. Instructions: Doctor's Order levomilnacipran 20 mg capsule,24 20 mg PO DAILY 05/21/24 10/14/24 hr,extended release (Fetzima) metoprolol succinate 50 mg mg PO 10/14/24 tablet,extended release 24 hr naltrexone 50 mg tablet 50 mg PO DAILY 10/14/24 10/14/24 tiotropium bromide 18 mcg capsule inhalation 10/14/24 with inhalation device (Spiriva with HandiHaler) Previous Rx's ?Medication ?Instructions ?Recorded atorvastatin 40 mg tablet 40 mg PO DAILY #30 tabs 05/08/23 clopidogrel 75 mg tablet (Plavix) 75 mg PO DAILY #30 tabs 05/08/23 meclizine 25 mg tablet 25 mg PO TID PRN dizziness #14 tabs 09/14/24 magnesium citrate (Citrate of 296 ml PO DAILY PRN constipation 11/12/24 Magnesia oral) #296 mL Allergies Allergy/AdvReac Type Severity Reaction Status Date / Time ciprofloxacin (From Cipro) Allergy Severe Swelling Verified 02/12/25 05:06 of Lip/Tongue/Throat metronidazole (From Flagyl) Allergy Severe Swelling Verified 02/12/25 05:06 of Lip/Tongue/Throat Penicillins Allergy Severe Swelling Verified 02/12/25 05:06 of Lip/Tongue/Throat Review of Systems ROS Status of ROS 10 or more systems reviewed and unremarkable except as noted in history and below [facility] Medical History COPD (chronic obstructive pulmonary disease) with acute bronchitis ?J44.0 - Chronic obstructive pulmonary disease with (acute) lower respiratory infection (ICD-10) ?J20.9 - Acute bronchitis, unspecified (ICD-10) Acute renal insufficiency ?N28.9 - Disorder of kidney and ureter, unspecified (ICD-10) Sleep apnea syndrome ?G47.30 - Sleep apnea, unspecified (ICD-10) Obesity ?E66.9 - Obesity, unspecified (ICD-10) Tobacco abuse ?Z72.0 - Tobacco use (ICD-10) Prediabetes ?R73.03 - Prediabetes (ICD-10) Hyperlipidemia ?E78.5 - Hyperlipidemia, unspecified (ICD-10) ?Z34.90 - Encounter for supervision of normal , unspecified, unspecified trimester (ICD-10) Abdominal pain ?R10.9 - Unspecified abdominal pain (ICD-10) Elevated troponin ?R79.89 - Other specified abnormal findings of blood chemistry (ICD-10) Demand ischemia ?I24.89 - Other forms of acute ischemic heart disease (ICD-10) IAM (acute kidney injury) ?N17.9 - Acute kidney failure, unspecified (ICD-10) Peripheral vascular disease ?I73.9 - Peripheral vascular disease, unspecified (ICD-10) Acute renal failure ?N17.9 - Acute kidney failure, unspecified (ICD-10) Pneumonia ?J18.9 - Pneumonia, unspecified organism (ICD-10) Acute kidney injury ?N17.9 - Acute kidney failure, unspecified (ICD-10) Acute hypotension ?I95.9 - Hypotension, unspecified (ICD-10) Schizo affective schizophrenia ?F25.9 - Schizoaffective disorder, unspecified (ICD-10) delivery delivered ?O82 - Encounter for delivery without indication (ICD-10) Cholecystectomy planned Bilateral carpal tunnel syndrome ?G56.03 - Carpal tunnel syndrome, bilateral upper limbs (ICD-10) Left adrenal mass ?E27.8 - Other specified disorders of adrenal gland (ICD-10) Raynauds disease ?I73.00 - Raynaud's syndrome without gangrene (ICD-10) Nicotine dependence ?F17.200 - Nicotine dependence, unspecified, uncomplicated (ICD-10) GERD without esophagitis ?K21.9 - Gastro-esophageal reflux disease without esophagitis (ICD-10) Irritable bowel syndrome (IBS) ?K58.9 - Irritable bowel syndrome, unspecified (ICD-10) Left ventricular hypertrophy ?I51.7 - Cardiomegaly (ICD-10) Asthma ?J45.909 - Unspecified asthma, uncomplicated (ICD-10) Vitamin D deficiency ?E55.9 - Vitamin D deficiency, unspecified (ICD-10) SHARI (obstructive sleep apnea) ?G47.33 - Obstructive sleep apnea (adult) (pediatric) (ICD-10) Anxiety disorder with panic attacks ?F41.9 - Anxiety disorder, unspecified (ICD-10) Depression ?F32.A - Depression, unspecified (ICD-10) Hypertension ?I10 - Essential (primary) hypertension (ICD-10) Surgical History H/O removal of cyst ?Z98.890 - Other specified postprocedural states (ICD-10) H/O cardiac catheterization ?Z98.890 - Other specified postprocedural states (ICD-10) H/O tubal ligation ?Z98.51 - Tubal ligation status (ICD-10) Family History Mother Family history of stroke Family history of cancer Social History Highest level of school completed/degree received: high school graduate Little interest or pleasure in doing things: not at all Feeling down, depressed, or hopeless: not at all Exam Constitutional Vital Signs, click to edit/add: Last Vital Signs Temp 98.1 F 02/12/25 05:00 Pulse 68 02/12/25 05:00 Resp 15 02/12/25 05:00 BP 116/75 02/12/25 05:00 Pulse Ox 100 02/12/25 05:00 O2 Del Method Room Air 02/12/25 05:00 Common normals: no apparent distress, oriented x3, no limitations, healthy appearing, alert and well nourished HENKY Common normals: normocephalic and head/scalp atraumatic Teeth and gingiva image:  1. tender dental caries Eye Common normals: PERRL, EOMs intact bilaterally and conjunctivae normal Respiratory Common normals: normal respiratory effort, no retractions, no use of accessory muscles and clear to auscultation bilaterally Cardio Common normals: regular rate, regular rhythm, S1 normal heart sound and S2 normal heart sound Extremity Common normals: normal to inspection and full ROM Neuro Common normals: oriented x3, CN's II-XII intact bilaterally and moves all extremities Psych Appearance: grossly normal Course Vital Signs Vital signs: Vital Signs Temperature 98.1 F 02/12/25 05:00 Pulse Rate 68 02/12/25 05:00 Respiratory Rate 15 02/12/25 05:00 Blood Pressure 116/75 02/12/25 05:00 Pulse Oximetry 100 02/12/25 05:00 Oxygen Delivery Method Room Air 02/12/25 05:00 Temperature 98.1 F 02/12/25 05:00 Pulse Rate 68 02/12/25 05:00 Respiratory Rate 15 02/12/25 05:00 Blood Pressure 116/75 02/12/25 05:00 Pulse Oximetry 100 02/12/25 05:00 Oxygen Delivery Method Room Air 02/12/25 05:00 MDM - Dental/Oral MDM Narrative Medical decision making narrative: presents with dentalgia and found to have dental caries tender # 32. No obvious facial swelling. Patient informed of the plan to treat as dental abscess and prescribed clindamycin Discharge Plan Discharge Chief Complaint: Dental/Oral Clinical Impression: Dental abscess Patient Disposition: Home, Self-Care Prescriptions / Home Meds: No Action clopidogrel [Plavix] 75 mg tablet 75 mg PO DAILY Qty: 30 0RF atorvastatin 40 mg tablet 40 mg PO DAILY Qty: 30 0RF gabapentin 300 mg capsule 600 mg PO TID olmesartan-hydrochlorothiazide 20-12.5 mg tablet 1 tab PO DAILY omeprazole 40 mg capsule,delayed release(DR/EC) 40 mg PO .BIDAC albuterol sulfate 90 mcg/actuation HFA aerosol inhaler 2 puff INHALATION Q4H PRN (Reason: shortness of breath or wheezing) cholecalciferol (vitamin D3) 50 mcg (2,000 unit) tablet 50 mcg PO DAILY lorazepam 1 mg tablet 1 mg PO TID PRN (Reason: anxiety) olanzapine 5 mg tablet 5 mg PO BID PRN (Reason: agitation) meclizine 25 mg tablet 25 mg PO TID PRN (Reason: dizziness) Qty: 14 0RF naltrexone 50 mg tablet 50 mg PO DAILY metoprolol succinate 50 mg tablet extended release 24 hr PO tiotropium bromide [Spiriva with HandiHaler] 18 mcg capsule, w/inhalation device INHALATION magnesium citrate [Citrate of Magnesia] Solution 296 ml PO DAILY PRN (Reason: constipation) Qty: 296 0RF aspirin 81 mg tablet,delayed release (DR/EC) 81 mg PO DAILY bupropion HCl 300 mg tablet extended release 24 hr 300 mg PO DAILY hydroxyzine pamoate 25 mg capsule 75 mg PO TID PRN (Reason: anxiety) Fetzima 20 mg capsule,extended release 24 hr 20 mg PO DAILY Print Language: Turkish Instructions: Dental Abscess (ED) Additional Instructions: follow up with your dentist next week as planned Referrals: MILLIE MANDEL [Primary Care Provider, Family Practice] - 1 week Discharge Date/Time: 02/12/25 05:52
--- OUTSIDE RECORDS SUMMARY | 2025-02-12 05:34 | XMS_ITS | CCD ---
Author Organization [facility] Care Team Providers Care Multimedia Developer Name Role Phone DIPESH MORRIS Unavailable Unavailable TAMARA CALERO Unavailable Unavailable [place] DOWEL POINTER-VACATION PLANNER, Debo Unavailable Roxanna Sarmiento MD Unavailable [place] DOWEL POINTER-VACATION PLANNER, Marcella Unavailable [phone] Tamara Calero Unavailable Roxanna Sarmiento MD Unavailable [place] DOWEL POINTER-VACATION PLANNER, Marcella Unavailable NICKYC, DR SHAH Primary Care [...] ZHOU Consulting Unavailable ART [employer] Consulting Unavailable Roxanna Sarmiento MD Unavailable [place] DOWEL POINTER-VACATION PLANNER, Marcella Unavailable [phone] Abdias, DO Tamara Primary Care Provider DO Antolin Abarca Emergency Provider [phone] MD Geo Loomis Admit Provider MD Geo Loomis Attending Provider [phone] Abdias, DO Tamara Primary Care Provider DO Antolin Abarca Emergency Provider MD Geo Loomis Admit Provider MD Geo Loomis Attending Provider [phone] PRASANNA STEPHENS Referring Unavailable PROVIDER, UNKNOWN Admitting Unavailable PROVIDER, UNKNOWN Attending Unavailable ROXANNA NICHOLE Referring Unavailable PROVIDER, UNKNOWN Admitting Unavailable PROVIDER, UNKNOWN Attending Unavailable PATIENT, SELF Referring Unavailable PROVIDER, UNKNOWN Admitting Unavailable PROVIDER, UNKNOWN Attending Unavailable Chloé WILSONVACATION PLANNER, Marcella Unavailable [phone] Priyanka Lemon Unavailable Abdias, DO Seayew Primary Care Provider MD Vivek Antoine Attending Provider Abdias, Tamara Primary Care Provider MD Vivke Antoine Attending Provider FARNAZ Mandel Primary Care Provider Noah [facility] Junie Walker Emergency Provider Abdias, DO Posada Primary Care Provider MD Vivek Antoine Attending Provider JUS WEBSTER Attending Unavailable TAMARA CALERO Referring Unavailable ABDIAS, TAMARA A Primary Care Unavailable ABDIAS, TAMARA A Referring Unavailable ABDIAS, TAMARA A Primary Care Unavailable JUS WEBSTER Attending Unavailable ABDIAS, TAMARA Hopson Referring Unavailable KELLY, JOSETTE S Primary Care Unavailable Abdias, Tamara [...] Care Provider Vivek Antoine MD Attending Provider Kelly MCKINNEY-C, Josette Springer Primary Care Provider Cole Cast DO Emergency Provider Vivek Antoine MD Admit Provider Josette oGre Primary Care Provider Vivek Antoine MD Attending Provider [phone] Abdias JACKSON Tamara Primary Care Provider Abdias JACKSON, Tamara Primary Care Provider Rosendo KELSEY, Heladio Villalobos Emergency Provider PRASHANT RODRIGUEZ Attending Unavailable PAT CALLAHAN Referring Unavailable FLORENCE DAWSON Admitting Unavailable SHREYAS RODRIGUEZ Attending Unavailable BASHIR HEATH Referring Unavailable BASHIR HEATH Referring Unavailable PRASHANT RODRIGUEZ Attending Unavailable REED PRADO Attending Unavailable Unallocated MD, Noms Provider Primary Care Provi matthew Josette Mandel MD Unavailable Tamara Calero DO Primary Care Provider Vivek Antoine MD Attending Provider [phone] IN [place] ATTENDANT-CJosette Primary Care Provider Jamaica Sellers APRN Attending Provider Josette Mandel Primary Care Unavailable Delaney Antoineelrahman Admitting Unavailab le Vivek Antoine Attending Unavailab Heladio Klein Jr Admitting Unavailable Heladio Robbins Jr Attending Unavailable Josette Mandel Primary Care Unavailable Tamara Calero Primary Care Unavailable Arash Vivek Admitting Unavailab le Vivek Antoine Attending Unavailab le Allergies Allergy ClassificationReported Allergen(s)Allergy TypeDate of OnsetReaction(s) Facility (20 sources)Ciprofloxacin; Translations: [CIPROFLOXACIN]Drug Rmuceuk03-75-1730 [facility]: comment on above:Patient not fully certain of reaction but believes it caused flu-like symptoms (20 sources)metroNIDAZOLE; Translations: [METRONIDAZOLE]Drug Nslkssv05-64-0366 Edema, Other (See Comments)[employer] Other Comment on above:Patient not sure of reaction but states a previous physician informed her she had reacted to it. (20 sources)Penicillins; Translations: [PENICILLINS]Propensity to adverse reactions to jtkr45-75-0877Kawgq, [facility] (20 sources)Penicillin G; Translations: [PENICILLIN G]Drug Axfnorx16-05-9822 swelling, [facility] [place] [facility])CiprofloxacinDrug Xyernkj10-12-6808[facility] ([facility])metroNIDAZOLEDrug Ydibwom74-55-6548Zqj [facility] Rep[facility] (1 source)PenicillinDrug Cqeryhd40-74-0174[facility]The [facility] (17 sources)Quinolones (Antibiotic); Translations: [Quinolones]Propensity to adverse mvwtivxmg30-81-0550[facility]naqplLkrhrsj[facility] (8 sources)ciprofibrate; Translations: [CIPROFIBRATE]Drug Nvsiioj54-17-7868 [facility] (1 source)CiprofloxacinDrug Iszghss70-99-2559UziyxvegqSelect [facility] [place] [facility] (1 source)metroNIDAZOLEDrug Qvdgikv81-38-0436JkqcbuxtxSelect [facility] [place] [facility] (1 source)PenicillinDrug Ifjdzcq20-66-9907RlxqzamjxSelect [facility] [place] [facility] Medications Current Medications MedicationDrug Class(es)DatesSig (Normalized)Sig (Original)acetaminophen 325 mg oral tablet (18 sources)Start: 08-34-9605dyhk 2 tablets by mouth every six hours acetaminophen (TYLENOL) 325 mg tablet Take 2 Tablets by mouth every 6 (six) hours. 30 Tablet 08/04/2021 11:28 AM EDT 08/04/2021 ActiveStart: 57-29-3496aqsp 650 mg by mouth every six rshen663 mg, Oral, Every 6 hours, First dose on 07/31/21 at 0230, Until Discontinued, Post-opStart: 09-08-2020 End: 00-83-2294npem 1 tablet by mouth every six hours as needed for pain acetaminophen (TYLENOL) 500 mg tablet Take 1 tablet (500 mg total) by mouth every 6 (six) hours as needed for pain. 30 tablet 09/08/2020 Activeaspirin 81 mg chewable tablet (18 sources)Platelet Aggregation Inhibitor, Nonsteroidal Anti-inflammatory Drug Start: 35-62-2197pitwztm 81 mg chewable tablet Chew 1 tablet (81 mg total) and swallow in the morning. 90 tablet 4 03/07/2024 ActiveStart: 74-03-2915djzj 1 tablet by mouth once dailyAspirin 81 mg tablet,delayed release (DR/EC) Active 81 MG PO Daily August 20, 2023 11:00pm Complieswith drug therapyStart: 08-21-2023 take 81 mg by mouth once dailyAspirin Active 81 MG PO Daily August 21, 2023 12:00amStart: 07-07-2020 End: 16-05-2218cwsr 1 tablet by mouth once dailyaspirin 81 mg 1 tablet Orally Once a day 90 tablet 3 05/18/2023 ActiveAspirin 81 mg tablet,delayed release (DR/EC) (5 sources)Start: 29-12-4890espz 1 tablet by mouth once dailyAspirin 81 mg tablet,delayed release (DR/EC) Active 81 MG PO Daily August 21, 2023 12:00am Start: 73-92-4485mles 1 tablet by mouth once dailyAspirin 81 mg tablet,delayed release (DR/EC) Active 81 MG PO Daily August 20, 2023 11:00pmatorvastatin 40 mg oral tablet (19 sources)HMG-CoA Reductase InhibitorStart: 05-80-6636rejc 1 tablet by mouth once dailyAtorvastatin 40 mg tablet Active 40 MG PO Daily August 20, 2023 11:00pm Complies with drug wturnir34 hr buPROPion hydrochloride 300 mg extended release oral tablet (20 sources)AminoketoneStart: 32-36-4615cyua 1 tablet by mouth once daily Bupropion Hcl 300 mg tablet extended release 24 hr Active 300 MG PO daily January 08, 2025 12:00am Complies with drug therapyStart: 06-11-2024 End: 74-38-4080toaw 1 tablet by mouth once dailyBupropion Hcl 300 mg tablet extended release 24 hr Discontinued 300 MG PO Daily June 10, 2024 11:00pm June 25, 2024 1:59pmStart: 11-14-2023 End: 10-03-0836Sroswugaq Hcl 150 mg Tablet Extended Release 24 Hr Discontinued 450 MG PO Daily 45 15 November 13, 2023 11:00pm March 31, 2024 12:32pm Start: 51-40-6519qemy 450 mg by mouth once dailyBupropion Hcl Active 450 MG PO Daily 45 15 November 14, 2023 12:00amStart: 09-28-2023 End: 93-53-1157Ulysnpxbm Hcl 150 mg tablet extended release 24 hr Discontinued 300 MG PO Daily September 27, 2023 11:00pm November 14, 2023 10:17amStart: 66-47-7878vxld 150 mg by mouth once dailyBupropion Hcl Active 150 MG PO Daily September 28, 2023 12:00amStart: 09-28-2023 End: 28-52-3206meyh 300 mg by mouth once dailyBupropion Hcl Discontinued 300 MG PO Daily September 28, 2023 12:00am November 14, 2023 11:17amcalcium carbonate 500 mg chewable tablet (1 source)Start: 87-96-4781mivosba carbonate (TUMS) 500 MG tablet CHEW cholecalciferol 0.05 mg oral tablet (20 sources)Vitamin DStart: 94-90-0298qgtd 1 tablet by mouth once daily Cholecalciferol (Vitamin D3) 50 mcg (2,000 unit) tablet Active 50 MCG PO Daily September 27, 2023 11:00pm Complies with drug therapyStart: 06-06-2023 cholecalciferol, vitamin D3, 2,000 units tablet Take by mouth daily. 06/06/2023 ActiveStart: 05-15-2022 End: 87-69-9335vqge 1 capsule by mouth once dailyCholecalciferol (Vitamin D3) 50 mcg (2,000 unit) capsule Discontinued 50 MCG PO Daily 30 30 2022 12:00am April 24, 2023 7:55amclonazePAM 0.5 mg oral tablet (20 sources)BenzodiazepineStart: 66-14-5384ffyj 1 tablet by mouth once daily for anxietyclonazePAM (KlonoPIN) 0.5 MG tablet take 1 tablet by mouth once daily if needed for anxiety 06/23/2021 Activeclopidogrel 75 mg oral tablet (20 sources)P2Y12 Platelet InhibitorStart: 87-37-2274hmwk 1 tablet by mouth once dailyClopidogrel 75 mg tablet Active 75 MG PO Daily August 20, 2023 11:00pm Complies with drug therapydoxycycline hyclate 100 mg oral tablet (20 sources)Tetracycline-class DrugStart: 53-10-9576rtfc 1 tablet by mouth twice dailyDoxycycline Hyclate 100 mg tablet Active 100 MG PO Twice daily 20 10 January 08, 2025 12:00am Complies with drug therapyStart: 08-31-2023 End: 70-23-6566ttse 1 capsule by mouth twice dailyDoxycycline Hyclate 100 mg capsule Discontinued 100 MG PO Twice daily 14 7 0 September 27, 2023 11:00pm November 08, 2023 6:45pmStart: 62-65-1537pbzz 1 capsule by mouth every twelve hoursDoxycycline Monohydrate 100 MG 1 capsule Orally every 12 hrs for 10 days Apr, ActiveStart: 90-11-6398vdbg 1 capsule by mouth every twelve hours Doxycycline Monohydrate 100 MG 1 capsule Orally every 12 hrs for 10 days Dec, Activeferrous sulfate 325 mg delayed release oral tablet (5 sources)Start: 24-46-2287cdmt 1 tablet by mouth every other dayFerrous Sulfate 325 (65 Fe) MG 1 tablet Orally Every other day for 90 day(s) Aug, Activetake 1 tablet by mouth three times weeklyFeroSuL 325 mg (65 mg iron) tablet Take 1 tablet (325 mg total) by mouth 3 (three) times a week. Active fluticasone propionate 0.05 mg/actuat metered dose nasal spray (1 source)CorticosteroidStart: 83-68-0176utfu 1 spray(s) nasal route once daily Flonase Allergy Relief 50 MCG/ACT 1 spray in each nostril Nasally Once a day for 14 day(s) Dec, Activegabapentin 100 mg oral capsule (20 sources)Anti-epileptic AgentStart: 17-51-2365vvqg 1 capsule by mouth once dailyGabapentin 100 mg capsule Active 100 MG PO Daily January 08, 2025 12:00am Complies with drug therapyStart: 06-14-2024 End: 07-55-2179tmot 1 capsule by mouth three times dailyGabapentin 100 mg Capsule Discontinued 100 MG PO Three times daily 45 15 June 13, 2024 11:00pmApril 2024 2:00pmStart: 08-28-2023 End: 37-09-5892looq 2 capsules by mouth three times dailyGabapentin 300 mg capsule Discontinued 600 MG PO Three times daily August 27, 2023 11:00pm 2024 9:41amStart: 04-90-7966mgab 600 mg by mouth three times daily Gabapentin Active 600 MG PO Three times daily August 28, 2023 12:00amStart: 04-24-2023 End: 37-02-0223cdkh 2 capsules by mouth three times dailyGabapentin 400 mg capsule Discontinued 300 MG PO Three times daily April 24, 2023 3:32pm August 28, 2023 11:41am 2 capsules TIDStart: 04-24-2023 End: 09-70-4882ifla 2 capsules by mouth three times dailyGabapentin Discontinued 300 MG PO Three times daily April 24, 2023 4:32pm August 28, 2023 12:41pm 2 capsules TIDStart: 04-24-2023 End: 42-22-2176Icsjtfgigp Discontinued MG PO April 24, 2023 1:00am April 24, 2023 4:36pm FreeTextSig: Oral; Note: Source Status: Taking; Qty: 90 Capsule; Provider: Abdias Posada ( )Start: 05-29-2022 End: 57-86-6888Qsbxctbcdo 400 mg capsule Discontinued MG PO April 24, 2023 12:00am April 24, 2023 3:36pmFreeTextSig: Oral; Note: Source Status: Taking; Qty: 90 Capsule; Provider: Abdias Posada ( )Start: 05-15-2022 End: 63-19-5432ofin 1 capsule by mouth three times dailyGabapentin 300 mg Capsule Discontinued 300 MG PO Three times daily 90 30 0 May 15, 2022 12:00amMarch 2022 9:26amStart: 75-33-6889ddovnxbbdm (NEURONTIN) capsule Start: 07-30-2021 End: 70-60-9953yczfosxmtq (NEURONTIN) capsuletake 1 tablet by mouth every eight hoursGabapentin 600 MG 1 tablet Orally Three times a day for 30 days Active hydroCHLOROthiazide 12.5 mg / olmesartan medoxomil 20 mg oral tablet (20 sources)Thiazide Diuretic, Angiotensin 2 Receptor BlockerStart: 08-21-2023 take 1 tablet by mouth once dailyOlmesartan-Hydrochlorothiazide 20-12.5 mg tablet Active 1 TAB PO Daily August 20, 2023 11:00pm Complies with drug therapy Start: 03-76-2643bavh 1 tablet by mouth once in the morningolmesartan- hydroCHLOROthiazide (BENICAR HCT) 20-12.5 mg per tablet Take 1 tablet by mouth in the morning. 04/24/2023 ActiveStart: 04-24-2023 End: 70-78-5545xdag 1 tablet by mouth once dailyOlmesartan-Hydrochlorothiazide 20-12.5 mg tablet Discontinued 1 TAB PO Daily 90 90 April 12:00am July 14, 2023 10:57amibuprofen 800 mg oral tablet (6 sources)Nonsteroidal Anti-inflammatory DrugStart: 12-93-2890lxhj 1 tablet by mouth every six hours as needed for painibuprofen (MOTRIN) 800 mg tablet Take 1 tablet (800 mg total) by mouth every 6 (six) hours as needed for pain. 30 tablet 07/20/2022 Kynfkl51 hr levomilnacipran 20 mg extended release oral capsule (20 sources)Serotonin and Norepinephrine Reuptake InhibitorStart: 13-64-7725qpgj 1 capsule by mouth once dailyLevomilnacipran (Fetzima) 20 mg capsule,extended release 24 hr Active 20 MG PO daily January 08, 2025 12:00am Complies with drug therapyStart: 06-25-2024 End: 10-06-8841sxhu 1 capsule by mouth every twenty-four hoursLevomilnacipran (Fetzima) 40 mg capsule,extended release 24 hr Discontinued MG PO June 24, 2024 11:00pm January 08, 2025 9:34amStart: 06-14-2024 End: 72-38-4618oxdq 1 capsule by mouth once dailyLevomilnacipran (Fetzima) 20 mg Capsule,Extended Release 24 Hr Discontinued 60 MG PO Daily 45 15 June 13, 2024 11:00pm June 25, 2024 1:59pmStart: 06-11-2024 End: 21-72-7743zobd 1 capsule by mouth once dailyLevomilnacipran (Fetzima) 20 mg capsule,extended release 24 hr Discontinued 40 MG PO Daily June 10, 2024 11:00pm June 25, 2024 1:59pmStart: 09-28-2023 End: 78-18-2700znmj 1 capsule by mouth once dailyLevomilnacipran (Fetzima) 40 mg capsule,extended release 24 hr Discontinued 40 MG PO Daily September 27, 2023 11:00pm November 14, 2023 10:17amStart: 09-28-2023 End: 92-11-4230uurm 1 capsule by mouth once dailyLevomilnacipran (Fetzima) 80 mg capsule,extended release 24 hr Discontinued 80 MG PO Daily September 27, 2023 11:00pm November 14, 2023 10:17amStart: 04-24-2023 End: 28-96-9893ffia 1 capsule by mouth once dailyLevomilnacipran 40 mg capsule,extended release 24 hr Discontinued 120 MG PO Daily April 24, 2023 12:00am September 28, 2023 12:33pm FreeTextSig: Oral; Note: Source Status: Taking; Qty: 30 Capsule; Provider: Abdias Posada ( )Start: 04-24-2023 take 1 capsule by mouth once dailyLevomilnacipran Active 40 MG PO Daily April 24, 2023 1:00am FreeTextSig: Oral; Note: Source Status: Taking; Qty: 30 Capsule; Provider: Abdias Posada ( )Start: 05-29-2022 End: 28-07-8860wqwy 1 capsule by mouth once dailyLevomilnacipran 80 mg capsule,extended release 24 hr Discontinued 80 MG PO Daily 30 May 28, 2022 11:00pm April 24, 2023 7:55amStart: 05-15-2022 End: 56-95-5601nxyl 1 capsule by mouth once dailyLevomilnacipran (Fetzima) 40 mg Capsule,Extended Release 24 Hr Discontinued 40 MG PO Daily 30 0 May 15, 2022 12:00am May 29, 2022 9:25amtake 1 capsule by mouth every twenty-four hours in the morninglevomilnacipran (FETZIMA) 80 mg capsule,extended release 24 hr Take 120 mg by mouth in the morning.ActiveLORazepam 2 mg oral tablet (20 sources)BenzodiazepineStart: 02-09-9998Kmfecnram 2 mg tablet Active MG PO June 24, 2024 11:00pm Complies with drug therapyStart: 11-08-2023 End: 41-98-9713wkhk 2 tablets by mouth twice dailyLorazepam 1 mg tablet Discontinued 2 MG PO Twice daily November 07, 2023 11:00pm June 25, 2024 1:58pm anxietyStart: 14-59-7108sudo 1 tablet by mouth three times daily as needed for anxietyLorazepam 1 mg tablet Active 1 MG PO Three times daily as needed for anxiety November 07, 2023 11:00pmStart: 08-28-2023 End: 84-20-7323zokw 1 tablet by mouth every six hours as needed for anxiety Lorazepam 1 mg tablet Discontinued 1 MG PO Every 6 hours as needed for anxiety 7 3 0 August 27, 2023 11:00pm November 08, 2023 6:47pm Acute anxiety Anxiety disorder, unspecifiedmethocarbamol 750 mg oral tablet (3 sources)Muscle RelaxantStart: 07-31-2021 End: 47-56-3113xlds 1 tablet by mouth four times daily as neededmethocarbamol (ROBAXIN) 750 MG tablet Take 1 Tablet by mouth 4 times daily as needed for up to 7 days. 28 Tablet 0 08/04/2021 08/11/2021 Izpdmc94 hr metoprolol succinate 50 mg extended release oral tablet (14 sources)beta-Adrenergic BlockerStart: 78-42-0299zwqt 1 tablet by mouth once dailyMetoprolol Succinate 50 mg tablet extended release 24 hr Active 50 MG PO Daily June 10, 2024 11:00pm Complies with drug therapyStart: 09-28-2023 End: 67-60-8881emii 1 tablet by mouth once dailyMetoprolol Tartrate 25 mg tablet Discontinued 25 MG PO Daily September 27, 2023 11:00pm November 6:46pm naloxone hydrochloride 40 mg/ml nasal spray (11 sources)Opioid AntagonistStart: 63-38-8928tobacjir 4 mg/0.1 mL nasal liquid Use 1 Baker in one nostril (alternate sides) as needed for Drug Overdose for up to 1 dose. Every 2-3 mins. until help arrives. 1 Each 1 08/04/2021 11:28 AM EDT 08/04/2021 ActiveStart: .4 mg, Intravenous Push, PRN, Starting on 07/31/21 at 0223, Until Discontinued, Respiratory Rate Less Than 8 for adults and less than 12 for Peds or for suspected overdose, Post-opOLANZapine 5 mg oral tablet (20 sources)Atypical AntipsychoticStart: 01-52-4161ulcl 1 tablet by mouth three times daily as neededOlanzapine 5 mg tablet Active 5 MG PO Three times daily as needed for agitation August 20, 2023 11:00pm Complies with drug therapyStart: 05-25-2022 End: 16-57-7221engh 1 tablet by mouth every six hours as neededOlanzapine 10 mg tablet Discontinued 10 MG PO Q6H as needed for Agitation May 24, 2022 11:34pm April 24, 2023 7:55amStart: 05-15-2022 End: 09-25-7094wwot 5 mg by mouth every six hours as neededOlanzapine 10 mg tablet Discontinued 5 MG PO Q6H as needed for Agitation May 15, 2022 12:00am May 24, 2022 11:34pmStart: 05-15-2022 End: 80-11-0700zfkk 5 mg by mouth every six hoursOlanzapine Discontinued 5 MG PO Q6H 30 May 15, 2022 1:00am May 25, 2022 12:34amomeprazole 40 mg delayed release oral capsule (20 sources)Proton Pump InhibitorStart: 84-00-5000oiib 1 capsule by mouth twice dailyOmeprazole 40 mg capsule,delayed release(DR/EC) Active 40 MG PO Twice daily August 27, 2023 11:00pmComplies with drug therapyStart: 05-01-2023 End: 56-38-4421jhox 1 capsule by mouth once daily before breakfastOmeprazole 40 mg capsule,delayed release(DR/EC) Discontinued 0 .ROUTE .COMPLEX 90 1 May 01, 2023 11:01am August 28, 2023 11:42am take 1 capsule by mouth EVERY MORNING BEFORE BREAKFASTStart: 03-31-2021 End: 76-64-0907ozgx 1 capsule by mouth once dailyOmeprazole 40 mg capsule,delayed release(DR/EC) Discontinued 40 MG PO Daily April 24, 2023 12:00am May 01, 2023 11:01am FreeTextSi capsule 30 minutes before morning meal Orally Once aday; Note: Source Status: Taking; Refills: 1; Provider: Abdias Posada A2 ml ondansetron 2 mg/ml injection (1 source)Serotonin-3 Receptor AntagonistStart: 35-96-1551narojpvevxo (ZOFRAN) 4 MG/2ML injectionoxyCODONE hydrochloride 5 mg oral tablet (4 sources)Opioid AgonistStart: 08-02-2021 End: 65-97-2958brpc 1 tablet by mouth every eight hours as neededoxyCODONE 5 MG immediate release tablet Indications: Postoperative pain Take 1 Tablet by mouth every 8 hours as needed for up to 7 days. 20 Tablet 0 08/04/2021 08/11/2021 ActivepredniSONE 20 mg oral tablet (20 sources)Start: 43-64-0667xuvj 1 tablet by mouth twice dailyPrednisone 20 mg tablet Active 20 MG PO Twice daily 10 January 08, 2025 12:00am Complies with drug therapyStart: 08-31-2023 End: 95-62-8633dulq 1 tablet by mouth twice dailyPrednisone 20 mg tablet Discontinued 20 MG PO Twice daily 10 5 August 30, 2023 11:00pm September 12:31pmStart: 08-21-2023 End: 42-88-0413pwjm 2 tablets by mouth once dailyPrednisone 20 mg tablet Discontinued 20 MG PO .COMPLEX 10 August 20, 2023 11:00pm August 28, 2023 11:42am Take 2 tabs po daily x 5 dayspromethazine hydrochloride 1.25 mg/ml oral solution (1 source)PhenothiazineStart: 36-92-6483Gwfoocqponil HCl (PHENERGAN) 6.25 MG/5ML oral solution SOLN72 hr scopolamine 0.0139 mg/hr transdermal system (1 source)AnticholinergicStart: 41-94-2704mtyupxadqbc (TRANSDERM-SCOP) 1 MG/3DAYS patchsucralfate 100 mg/ml oral suspension (1 source)Aluminum ComplexStart: 26-04-8181vosthyjkga (CARAFATE) 1 GM/10ML oral suspensiontraZODone hydrochloride 50 mg oral tablet (20 sources)Serotonin Reuptake InhibitorStart: 20-52-3967myyo 1 tablet by mouth once daily at bedtime as neededTrazodone 50 mg tablet Active 50 MG PO Daily at bedtime as needed January 08, 2025 12:00am 1-2 prn Complies with drug therapy Start: 04-24-2023 End: 10-25-1521zjrn 1 tablet by mouth once daily at bedtimeTrazodone 100 mg tablet Discontinued 100 MG PO Daily at bedtime April 24, 2023 12:00am August 28, 2023 11:42am FreeTextSi tablet at bedtime Orally Once a day; Note: Source Status: Taking; Provider: Elena Hantart: 26-64-3722epil 200 mg by mouth at bekroqs739 mg, Oral, AT BEDTIME, First dose on 07/31/21 at 2200, Until Discontinued, Post-opStart: 03-31-2021 End: 69-75-9893ugys 2 tablets by mouth at bedtimeTrazodone 100 mg tablet Discontinued 200 MG PO Bedtime May 11, 2022 12:00am April 24, 2023 7 :55amStart: 03-31-2021 End: 76-75-2856oskv 200 mg by mouth at bedtimeTrazodone Discontinued 200 MG PO Bedtime May 11, 2022 1:00am April 24, 2023 8:55amtake 4 tablets by mouth once dailytraZODone (DESYREL) 50 mg tablet Take 4 tablets (200 mg total) by mouth nightly. Activetake 1 tablet by mouth every twenty-four hourstraZODone HCl 100 MG 1 tablet at bedtime Orally Once a day ActiveTylenol Extra Strength 500 MG (13 sources)take 1 tablet by mouth every six hours as neededTylenol Extra Strength 500 MG 1 tablet as needed Orally every 6 hrs Activevilazodone hydrochloride 20 mg oral tablet (9 sources)Start: 81-44-9989Yaldaauwts 20 mg tablet Active MG PO June 24, 2024 11:00pm Complies with drug therapyStart: 03-31-2024 End: 60-88-5489Tzyruslxce 10 mg tablet Discontinued 10 MG PO March 31, 2024 12:00am June 11, 2024 3:55pm Completed/Discontinued Medications MedicationDrug Class(es)DatesSig (Normalized)Sig (Original)acetaminophen 325 mg / HYDROcodone bitartrate 5 mg oral tablet (16 sources)Opioid AgonistStart: 11-10-2016 End: 84-61-2769cbwu 1-2 tablets by mouth every four hours as needed for pain Hydrocodone-Acetaminophen ([place]) 5-325 mg tablet Discontinued 1 TAB PO Q4H as needed for pain 30 0September 2016March 31, 2021 11:23am 1-2 Tabs Q 4 hours PRN for painacetaminophen 325 mg / oxyCODONE hydrochloride 5 mg oral tablet (16 sources)Opioid AgonistStart: 04-02-2021 End: 66-20-0403khkh 1 tablet by mouth every four hours as needed for pain Oxycodone-Acetaminophen 5-325 mg Tablet Discontinued 1 TAB PO Q4H as needed for pain 0 0 April 02, 2021 May 11, 2022 12:[id number] 200 actuat albuterol 0.09 mg/actuat metered dose inhaler (20 sources)beta2-Adrenergic AgonistStart: 03-31-2024 End: 03-03-4478Csvyvelga Sulfate 90 mcg/actuation HFA aerosol inhaler Discontinued 2 INH INHALATION EVERY 4-6 HOURS as needed for shortness of breath or wheezing 8.5 0 March 31, 2024 12:00am June 25, 2024 2:00pmStart: 04-24-2023 End: 26-92-2622wjea 2 puff(s) by inhalation every four hours as needed for wheezingAlbuterol Sulfate 90 mcg/actuation HFA aerosol inhaler Discontinued 2 INH INHALATION Every 4 hours as needed for shortness of breath or wheezing April 24, 2023 12:00am June 11, 2024 3:54pm FreeTextSi puffs as needed Inhalation every 6 hrs PRN; Note: Source Status: Taking; Refills: 0; Prov ider: Abdias Posada AStart: 07-07-6206smuf 2 puff(s) by inhalation every six hours as neededAlbuterol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 Plasma7-52[facility], AvonAlbumin [Mass/volume] in Serum or Plasma by Bromocresol green (BCG) dye binding metho Ordered By: Heladio Robbins on 83-33-2864Pvrsmnu BCG dye [Mass/Vol]Albumin [Mass/volume] in Serum or Plasma by Bromocresol green (BCG) dye binding metho 3.5-5.7FFulton County Health CenterAlkaline phosphatase [Enzymatic activity/volume] in Serum or PlasmaOrdered By: Heladio Robbins on 95-82-9834CTL [Catalytic activity/Vol]Alkaline phosphatase [Enzymatic activity/volume] in Serum or Cbyfuq63-303LunfmfjckSelect Medical Cleveland Clinic [facility], AvonAmphetamine Screen Ql (U) Ordered By: Heladio Robbins on 69-77-6358Gklkwfswkvbk Ql (U)Amphetamines screen NegativeSelect Medical [facility] Clinic [facility], AvonAppearance of UrineOrdered By: Heladio Robbins on 14-67-8054Srpvwgoquw (U)Urine appearanceCleSalem City HospitalAspartate aminotransferase [Enzymatic activity/volume] in Serum or PlasmaOrdered By: Heladio Robbins on 61-39-1491QPE [Catalytic activity/Vol] Aspartate aminotransferase [Enzymatic activity/volume] in Serum or Velhrb13-65 [facility], AvonBarbiturates [Presence] in Urine by Screen methodOrdered By: Heladio Robbins on 22-61-8628Gvmvxdamhqxs Screen Ql (U) Barbiturates [Presence] in Urine by Screen methodNegativeSelect Medical [facility], AvonBasophils Auto (Bld) [#/Vol]Ordered By: Heladio Robbins on 83-89-8770Zkuhsepwy (Bld) [#/Vol]Automated basophil count0.0-0.2FFulton County Health CenterBasophils/100 WBC Auto (Bld)Ordered By: Heladio Robbins on 39-00-1189Hcfizmfwc/100 WBC (Bld)Automated basophil %.[facility], AvonBenzodiazepines Screen Ql (U)Ordered By: Heladio Robbins on 07-06-2024 Benzodiazepines Ql (U)Benzodiazepines [Presence] in Urine by Screen method NegativeSelect Medical [facility], AvonBenzoylecgonine [Presence] in Urine by Screen methodOrdered By: Heladio Robbins on 31-60-2802Uesvqkxeirnrxyd Screen Ql (U)Benzoylecgonine [Presence] in Urine by Screen methodNegSouthern Ohio Medical CenterBilirubin Test strip Ql (U)Ordered By: Heladio Robbins on 19-81-2042Lfjjnszwm Ql (U)Bilirubin.total [Presence] in Urine by Test strip NegativeSelect Medical [facility] Clinic [facility], AvonBilirubin.total [Mass/volume] in Serum or PlasmaOrdered By: Heladio Robbins on 65-65-7661Iqfojrxsc [Mass/Vol] Bilirubin.total [Mass/volume] in Serum or Plasma0.3-1.0[facility], AvonCalcium [Mass/volume] in Serum or PlasmaOrdered By: Heladio Robbins on 90-56-0279Necojxv [Mass/Vol]Calcium [Mass/volume] in Serum or Plasma8.6-10.3 [facility], AvonCannabinoids [Presence] in Urine by Screen methodOrdered By: Heladio Robbins on 33-09-2080Ekixuqjqpewc Screen Ql (U) Cannabinoids [Presence] in Urine by Screen methodNegSouthern Ohio Medical CenterComment on above:These are unconfirmed results and should not be used for legal purposes. Drug Cut-Off Concentration: AMPH 1000 ng/mL SANDEEP 200 ng/mL JERSON 200 ng/mL COCM 300 ng/mL OP 300 ng/mL PCP 25 ng/mL THC 20 ng/mLCarbon dioxide, total [Moles/volume] in Serum or PlasmaOrdered By: Heladio Robbins on 87-48-2648GH9 [Moles/Vol]Carbon dioxide, total [Moles/volume] in Serum or Plasma 21.0-31.0[facility], AvonChloride [Moles/volume] in Serum or PlasmaOrdered By: Heladio Robbins on 46-98-6625Ivibpymh [Moles/Vol]Chloride [Moles/volume] in Serum or Orxgcu83-629PlnpxwthtSelect Medical Cleveland Clinic Rehabilitation Hospital, AvonColor Auto (U)Ordered By: Heladio Robbins on 77-48-2033Fuxjq (U)Color of Urine by Auto YellowSelect Medical [facility], AvonComplete Blood Count Auto Diffon 50-64-0815Dxrxczdlx (Bld) [#/Vol]0.1 10*3/uLNormal0.0-0.2The [facility] Physician GroupComment on above:Result Comment: PERFORMED BY: [place] [address] PATHOLOGIST PAPER LATCHER JUS FAUSTIN M.D.Performed By: #### CMP, ETOH, CBC #### [place] [address] USABasophils/100 WBC (Bld)0.5 %Normal.The [facility] Physician GroupComment on above:Performed By: #### CMP, ETOH, CBC #### [place] [address] USAEosinophils (Bld) [#/Vol]0.0 10*3/uLNormal0.0-0.45The [facility] Physician GroupComment on above:Performed By: #### CMP, ETOH, CBC #### [place] [address] USAEosinophils/100 WBC (Bld)0.1 %Normal.The [facility] Physician GroupComment on above:Performed By: #### CMP, ETOH, CBC #### [place] [address] USAErythrocyte distribution width (RBC) [Ratio]16.4 %High 11.9-15.3The [facility] Physician GroupComment on above:Performed By: #### CMP, ETOH, CBC #### [facility] [address] [place] [address] USAHematocrit (Bld) [Volume fraction]34.8 %Dfjoms01.0-46.4The [facility] Physician GroupComment on above:Performed By: #### CMP, ETOH, CBC #### [place] [address] USAHemoglobin (Bld) [Mass/Vol]11.7 g/dLLow11.8-15.4The [facility] Physician GroupComment on above:Performed By: #### CMP, ETOH, CBC #### [place] [address] USALymphocytes (Bld) [#/Vol]2.1 10*3/uLNormal1.00-4.8The [facility] Physician GroupComment on above:Performed By: #### CMP, ETOH, CBC #### [place] [address] USALymphocytes/100 WBC (Bld)13.5 %Normal.The [facility] Physician GroupComment on above:Performed By: #### CMP, ETOH, CBC #### [place] [address] USAMCH (RBC) [Entitic mass]29.8 jbQwhoio06.7-34.3The [facility] Physician GroupComment on above:Performed By: #### CMP, ETOH, CBC #### [place] [address] USAMCV (RBC) [Entitic vol]88.7 rUSaydjt10-979Qrk [facility] Physician GroupComment on above:Performed By: #### CMP, ETOH, CBC #### [place] [address] USAMean Corpuscular HGB Conc33.5 g/jAUixobv84.0-35.0The [facility] Physician GroupComment on above:Performed By: #### CMP, ETOH, CBC #### [place] [address] USAMonocytes (Bld) [#/Vol]1.0 10*3/uLHigh0.0-0.8The [facility] Physician GroupComment on above:Performed By: #### CMP, ETOH, CBC #### [place] [address] USAMonocytes/100 WBC (Bld)18.40 %Normal0.00-20.00The [facility] Physician GroupComment on above:Performed By: #### CMP, ETOH, CBC #### [place] [address] USAMonocytes/100 WBC (Bld)6.2 %Normal.The [facility] Physician GroupComment on above:Performed By: #### CMP, ETOH, CBC #### [place] [address] USANeutrophils (Bld) [#/Vol]12.2 10*3/uLHigh1.8-7.7The [facility] Physician GroupComment on above:Performed By: #### CMP, ETOH, CBC #### [place] [address] USANeutrophils/100 WBC (Bld)79.7 %Normal.The [facility] Physician GroupComment on above:Performed By: #### CMP, ETOH, CBC #### [place] [address] USANRBC%0.0 /100{WBC}Normal0-0.5The [facility] Comment on above:Performed By: #### CMP, ETOH, CBC #### [place] [address] USAPlatelet mean volume (Bld) [Entitic vol]7.4 fLNormal 6.3-10.7The [facility] Physician GroupComment on above:Performed By: #### CMP, ETOH, CBC #### [place] [address] USAPlatelets (Bld) [#/Vol]330 10*3/oRKjuoci011-777Zqt [facility] Physician GroupComment on above:Performed By: #### CMP, ETOH, CBC #### [address] [place] [address] USARBC (Bld) [#/Vol]3.92 10*6/uLNormal3.60-5.00The [facility] Physician GroupComment on above:Performed By: #### CMP, ETOH, CBC #### [place] [address] USAWBC (Bld) [#/Vol]15.3 10*3/uLHigh3.8-11.6The [facility] Physician GroupComment on above:Performed By: #### CMP, ETOH, CBC #### [place] [address] USAComprehensive Metabolic Panelon 77-62-6143Ersknno [Mass/Vol]3.8 g/dLNormal3.5-5.7The [facility] Physician GroupComment on above: Performed By: #### CMP, ETOH, CBC #### [place] [address] USAAlbumin/Globulin [Mass ratio]1.3 {ratio}NormalThe [facility] Physician GroupComment on above:Performed By: #### CMP, ETOH, CBC #### [place] [address] USAALP [Catalytic activity/Vol]72 U/QCqxmww16-010Bxi [facility] Physician GroupComment on above:Performed By: #### CMP, ETOH, CBC #### [place] [address] USAALT [Catalytic activity/Vol]14 U/LNormal7-52The [facility] Physician GroupComment on above:Performed By: #### CMP, ETOH, CBC #### [place] [address] USAAnion gap [Moles/Vol]12.3 mmol/LNormal6.0-15.0The [facility] Physician GroupComment on above:Performed By: #### CMP, ETOH, CBC #### [place] [address] USAAST [Catalytic activity/Vol]13 U/QTwrowy33-94Anz [facility] Physician GroupComment on above:Performed By: #### CMP, ETOH, CBC #### [facility] [address] [place] [address] USABilirubin [Mass/Vol]0.4 mg/dLNormal0.3-1.0The [facility] Physician GroupComment on above:Performed By: #### CMP, ETOH, CBC #### [place] [address] USACalcium [Mass/Vol]9.4 mg/dLNormal8.6-10.3The [facility] Physician GroupComment on above:Performed By: #### CMP, ETOH, CBC #### [place] [address] USAChloride [Moles/Vol]102 mmol/IWaatpn02-830Ohw [facility] Physician GroupComment on above:Performed By: #### CMP, ETOH, CBC #### [place] [address] USACO2 [Moles/Vol]24.5 mmol/LUakfak27.0-31.0The [facility] Physician GroupComment on above:Performed By: #### CMP, ETOH, CBC #### [place] [address] USACreatinine [Mass/Vol]0.86 mg/dLNormal0.60-1.20The [facility] Physician GroupComment on above:Performed By: #### CMP, ETOH, CBC #### [place] [address] USACreatinine Clr Calc Viqygnsa055.22NormalThe [facility] Physician GroupComment on above:Result Comment: PERFORMED BY: [place] [address] PATHOLOGIST PAPER LATCHER JUS FAUSTIN M.D.Performed By: #### CMP, ETOH, CBC #### [place] [address] USAGFR/1.73 sq M.predicted MDRD (S/P/Bld) [Vol rate/Area] mL/min/{1.73_m2}NormalThe [facility] Physician GroupComment on above:Performed By: #### CMP, ETOH, CBC #### [facility] [address] [place] [address] USAGlobulin (S) [Mass/Vol]2.9 g/dLNormalThe [facility] Physician GroupComment on above:Performed By: #### CMP, ETOH, CBC #### [facility] [address] [place] [address] USAGlucose [Mass/Vol]88 mg/rJTfrvpw40-821Ufc [facility] Physician GroupComment on above:Result Comment: Random Glucose Reference Range is dependent on time and content of last meal. Glucose of more than 200 mg/dL in a nonstressed, ambulatory subject supports the diagnosis of Diabetes Mellitus. ADA recommended reference rangePerformed By: #### CMP, ETOH, CBC #### [facility] [address] [place] [address] USAPotassium [Moles/Vol]3.8 mmol/LNormal3.5-5.1The [facility] Physician GroupComment on above:Performed By: #### CMP, ETOH, CBC #### [facility] [address] [place] [address] USAProtein [Mass/Vol]6.7 g/dLNormal6.4-8.9The [facility] Physician GroupComment on above:Performed By: #### CMP, ETOH, CBC #### [facility] [address] [place] [address] USASodium [Moles/Vol]135 mmol/LRab593-626Exh [facility] Physician GroupComment on above:Performed By: #### CMP, ETOH, CBC #### [facility] [address] [place] [address] USAUrea nitrogen [Mass/Vol]20 mg/dLNormal7-25The [facility] Physician GroupComment on above:Performed By: #### CMP, ETOH, CBC #### [facility] [address] [place] [address] USACreatinine [Mass/volume] in Serum or PlasmaOrdered By: Heladio Robbins on 52-96-1738Cmxcwydsma [Mass/Vol]Creatinine [Mass/volume] in Serum or Plasma0.60-1.20[facility], AvonDrug Screen,Urineon 31-05-3942Jpikljoedrc Screen,UrineNegativeNormalNegativeThe [facility] Physician GroupComment on above:Performed By: #### URDS, UA, UHCG #### [place] [address] USABarbiturate Screen,UrineNegativeNormalNegativeThe [facility] Physician GroupComment on above:Performed By: #### URDS, UA, UHCG #### [place] [address] USABenzodiazepines Screen,UrineNegativeNormalNegativeKeralty Hospital Miami Physician GroupComment on above:Performed By: #### URDS, UA, UHCG #### [place] [address] USACannabinoid Screen,UrineNegativeNormalNegativeKeralty Hospital Miami Physician GroupComment on above:Result Comment: These are unconfirmed results and should not be used for legal purposes. Drug Cut-Off Concentration: AMPH 1000 ng/mL SANDEEP 200 ng/mL JERSON 200 ng/mL COCM 300 ng/mL OP 300 ng/mL PCP 25 ng/mL THC 20 ng/mL PERFORMED BY: [place] [address] PATHOLOGIST PAPER LATCHER JUS FAUSTIN M.D.Performed By: #### URDS, UA, UHCG #### [place] [address] USACocaine Screen,UrineNegativeNormalNegativeKeralty Hospital Miami Physician GroupComment on above:Performed By: #### URDS, UA, UHCG #### [place] [address] USAOpiate Screen,UrineNegativeNormalNegativeKeralty Hospital Miami Physician GroupComment on above:Performed By: #### URDS, UA, UHCG #### [place] [address] USAPhencyclidine Screen,UrineNegativeNormalNegativeThe [facility] Physician GroupComment on above:Performed By: #### URDS, UA, UHCG #### [facility] [address] [place] [address] USAEosinophils Auto (Bld) [#/Vol]Ordered By: Heladio Robbins on 14-14-4155Jqykygczhud (Bld) [#/Vol]Automated eosinophil count0.0-0.45[facility], AvonEosinophils/100 WBC Auto (Bld)Ordered By: Heladio Robbins on 17-13-4278Zyilukroidm/100 WBC (Bld)Automated eosinophil %.[facility], AvonErythrocyte distribution width Auto (RBC) [Ratio]Ordered By: Heladio Robbins on 20-79-3125Afgcpsgisvv distribution width (RBC) [Ratio] Erythrocyte distribution width [Ratio] by Automated jrsnwHtbb21.9-15.3FFulton County Health CenterEthanol [Mass/volume] in Serum or PlasmaOrdered By: Heladio Robbins on 43-21-1333Nhunukl [Mass/Vol]Ethanol [Mass/volume] in Serum or PlasmaSelect Medical Cleveland Clinic Rehabilitation Hospital, AvonEthyl Alcohol Profileon 81-47-8833Ckfkxig [Mass/Vol]126 mg/dLNormalThe [facility] Physician GroupComment on above: Performed By: #### CMP, ETOH, CBC #### [facility] [address] [place] [address] USAPercent Ethanol0.126 %NormalThe [facility] Comment on above:Result Comment: PERFORMED BY: [facility] [address] [facility] [address] PATHOLOGIST PAPER LATCHER JUS FAUSTIN M.D.Performed By: #### CMP, ETOH, CBC #### [facility] [address] [place] [address] USAGlobulin Calc (S) [Mass/Vol]Ordered By: Heladio Robbins on 18-35-8655Ulkdruql (S) [Mass/Vol]Serum globulin measurement by calculation (mass/volume)[facility], AvonGlucose [Mass/volume] in Serum or PlasmaOrdered By: Heladio Robbins on 65-19-6501Wgdssmw [Mass/Vol]Glucose [Mass/volume] in Serum or Wberum27-406SzegrwyuqSelect Medical Cleveland Clinic Rehabilitation Hospital, AvonComment on above:ADA recommended reference rangeRandom Glucose Reference Range is dependent on time and content of last meal. Glucose of more than 200 mg/dL in a nonstressed, ambulatory subject supports the diagnosisof Diabetes Mellitus. Glucose [Mass/volume] in Urine by Test stripOrdered By: Heladio Robbins on 35-49-3145Pwklfki Test strip (U) [Mass/Vol]Glucose [Mass/volume] in Urine by Test stripNormalSelect Medical [facility] Clinic [facility], AvonHCG ( test) IA.rapid Ql (U)Ordered By: Heladio Robbins on 20-90-1129VJZ ( test) Ql (U)Urine human chorionic gonadotropin (hCG) detection by immunoassaySelect Medical Cleveland Clinic Rehabilitation Hospital, AvonHCG,Urineon 10-89-6410Yzyz HCG ( test) Ql (U)Negative NormalThe [facility] Physician GroupComment on above:Order Comment: Name Collection Type:: Clean-Voided MidstreamResult Comment: PERFORMED BY: [place] [address] PATHOLOGIST PAPER LATCHER JUS FAUSTIN M.D.Performed By: #### URDS, UA, CG #### [place] [address] USAHematocrit Auto (Bld) [Volume fraction]Ordered By: Heladio Robbins on 64-98-8010Dlijmnxusk (Bld) [Volume fraction]Hematocrit [Volume Fraction] of Blood by Automated count34.0-46.4FFulton County Health Center Hemoglobin Test strip Ql (U)Ordered By: Heladio Robbins on 61-38-4771Xnagnwpvgz Ql (U)Hemoglobin [Presence] in Urine by Test stripNegSouthern Ohio Medical CenterHemoglobin [Mass/volume] in BloodOrdered By: Heladio Robbins on 29-84-2761Keuwnmzrvh (Bld) [Mass/Vol]Hemoglobin [Mass/volume] in BloodLow 11.8-15.4FFulton County Health CenterKetones Test strip Ql (U)Ordered By: Heladio Robbins on 25-90-1089Ghnumpl Ql (U)Ketones [Presence] in Urine by Test stripNegSouthern Ohio Medical CenterLeukocyte esterase [Presence] in Urine by Test stripOrdered By: Heladio Robbins on 29-22-8098Qdvjfouth esterase Test strip Ql (U)Leukocyte esterase [Presence] in Urine by Test stripNegative [facility], AvonLeukocytes [#/volume] corrected for nucleated erythrocytes in Blood by Automated counOrdered By: Heladio Robbins on 07-06-2024 WBC corrected for nucl RBC Auto (Bld) [#/Vol]Leukocytes [#/volume] corrected for nucleated erythrocytes in Blood by Automated counHigh3.8-11.6FFulton County Health CenterLymphocytes Auto (Bld) [#/Vol]Ordered By: Heladio Robbins on 55-93-1128Uowtcrefgsj (Bld) [#/Vol]Lymphocytes [#/volume] in Blood by Automated count1.00-4.8[facility], AvonLymphocytes/100 WBC Auto (Bld) Ordered By: Heladio Robbins on 79-54-6122Camcoohmnjv/100 WBC (Bld)Lymphocytes/100 leukocytes in Blood by Automated count.[facility], AvonMCH Auto (RBC) [Entitic mass]Ordered By: Heladio Robbins on 85-66-7434DDQ (RBC) [Entitic mass]MCH [Entitic mass] by Automated count24.7-34.3FFulton County Health CenterMCHC Auto (RBC) [Mass/Vol]Ordered By: Heladio Robbins on 06-05-0399POZN (RBC) [Mass/Vol]MCHC [Mass/volume] by Automated count32.0-35.0[facility], AvonMCV Auto (RBC) [Entitic vol]Ordered By: Heladio Robbins on 13-15-7475MXN (RBC) [Entitic vol]MCV [Entitic volume] by Automated -994 [facility], AvonMonocyte distribution width [Entitic volume] in Blood by AutomatedOrdered By: Heladio Robbins on 47-99-8446Bgnfpnjc distribution width Auto (Bld) [Entitic vol]Monocyte distribution width [Entitic volume] in Blood by Automated0.00-20.00[facility], AvonMonocytes Auto (Bld) [#/Vol]Ordered By: Heladio Robbins on 08-16-0440Gnopvyhlr (Bld) [#/Vol] Automated blood monocyte countHigh0.0-0.8[facility] Monocytes/100 WBC Auto (Bld)Ordered By: Heladio Robbins on 67-72-0834Scletijar/100 WBC (Bld)Automated monocyte %.[facility], AvonNeutrophils Auto (Bld) [#/Vol]Ordered By: Heladio Robbins on 82-40-2476Nbejpxcebsa (Bld) [#/Vol] Neutrophils [#/volume] in Blood by Automated countHigh1.8-7.7FFulton County Health CenterNeutrophils/100 WBC Auto (Bld)Ordered By: Heladio Robbins on 41-28-5293Qnnvxrqiivj/100 WBC (Bld)Automated neutrophil %.[facility], AvonNitrite Test strip Ql (U)Ordered By: Heladio Robbins on 07-06-2024 Nitrite Ql (U)Nitrite [Presence] in Urine by Test stripNegativeSelect Medical [facility] Clinic [facility], AvonNo Panel InformationOrdered By: Heladio Robbins on 90-38-9080Pnkhpyqad GFR (CKD-EPI)> 60.0 mL/MinSelect Medical [facility] Clinic Rehabilitation [facility], Avon Pharmacy Creatinine Clearance (Yybc599.22[facility] [place] Nucleated erythrocytes [Presence] in Blood by Automated countOrdered By: Heladio Robbins on 82-80-8598Ziiqqomvq RBC Auto Ql (Bld)Nucleated erythrocytes [Presence] in Blood by Automated count0-0.5FFulton County Health CenterOpiates [Presence] in Urine by Screen methodOrdered By: Heladio Robbins on 07-06-2024 Opiates Screen Ql (U)Opiates [Presence] in Urine by Screen methodNegative [facility], AvonPhencyclidine Screen Ql (U)Ordered By: Heladio Robbins on 56-32-2279Nkjehwgcmqyno Ql (U)Phencyclidine [Presence] in Urine by Screen methodNegativeSelect Medical [facility] Clinic [facility], AvonPlatelet mean volume Auto (Bld) [Entitic vol]Ordered By: Heladio Robbins on 21-69-6255Xoygoghi mean volume (Bld) [Entitic vol]Platelet mean volume [Entitic volume] in Blood by Automated count6.3-10.7FFulton County Health CenterPlatelets Auto (Bld) [#/Vol] Ordered By: Heladio Robbins on 83-26-4458Almymbgcf (Bld) [#/Vol]Platelets [#/volume] in Blood by Automated chnyq978-958BmjakzxtdSelect Medical Cleveland Clinic Rehabilitation [facility], [place] Potassium [Moles/volume] in Serum or PlasmaOrdered By: Heladio Robbins on 11-53-2665Sadezqtce [Moles/Vol]Potassium [Moles/volume] in Serum or Plasma 3.5-5.1FFulton County Health CenterProtein Test strip (U) [Mass/Vol]Ordered By: Heladio Robbins on 85-37-4502Ufwadtp (U) [Mass/Vol]Protein [Mass/volume] in Urine by Test stripNegativeSelect Medical [facility] Clinic [facility], AvonProtein [Mass/volume] in Serum or PlasmaOrdered By: Heladio Robbins on 99-64-7289Atgwtzr [Mass/Vol]Protein [Mass/volume] in Serum or Plasma6.4-8.9[facility], AvonRBC Auto (Bld) [#/Vol]Ordered By: Heladio Robbins on 09-85-5633RUM (Bld) [#/Vol]Erythrocytes [#/volume] in Blood by Automated count3.60-5.[address] [facility] Hospitalerum or plasma albumin/globulin mass ratio Ordered By: Heladio Robbins on 95-01-4743Btjjdqx/Globulin [Mass ratio]Serum or plasma albumin/globulin mass ratioSt. Francis Hospitalerum or plasma anion gap determinationOrdered By: Heladio Robbins on 36-87-9937Uvjjz gap [Moles/Vol]Serum or plasma anion gap determination6.0-15.0St. Francis Hospitalodium [Moles/volume] in Serum or PlasmaOrdered By: Heladio Robbins on 76-31-2585Pbdtdu [Moles/Vol]Sodium [Moles/volume] in Serum or PlasmaLow 136-145St. Francis Hospitalpecific gravity Test strip (U) [Rel density]Ordered By: Heladio Robbins on 49-26-5408Xohpesno gravity (U) [Rel density]Specific gravity of Urine by Test strip1.001-1.030[facility], AvonUrea nitrogen [Mass/volume] in Serum or PlasmaOrdered By: Heladio Robbins on 87-73-0879Zmmi nitrogen [Mass/Vol]Urea nitrogen [Mass/volume] in Serum or Plasma7-25[facility], AvonUrinalysison 13-77-8511Hnbpsxfujf (U)ClearNormalClearThe [facility] Physician GroupComment on above:Order Comment: Name Collection Type:: Clean-Voided MidstreamPerformed By: #### URDS, UA, UHCG #### [facility] [address] [place] [address] USABilirubin,UrineNegativeNormalNegativeKeralty Hospital Miami Physician GroupComment on above:Order Comment: Name Collection Type:: Clean- Voided MidstreamPerformed By: #### URDS, UA, UHCG #### [facility] [address] [place] [address] USAColor (U)ColorlessNormalYellowThe Formerly [facility] Physician GroupComment on above:Order Comment: Name Collection Type:: Clean-Voided MidstreamPerformed By: #### URDS, UA, UHCG #### [place] [address] USAGlucose Ql (U)NormalNormalNormalThe [facility] Physician GroupComment on above:Order Comment: Name Collection Type:: Clean-Voided MidstreamPerformed By: #### URDS, UA, UHCG #### [facility] [address] [place] [address] USAKetones Ql (U)NegativeNormalNegativeKeralty Hospital Miami Physician GroupComment on above:Order Comment: Name Collection Type:: Clean- Voided MidstreamPerformed By: #### URDS, UA, UHCG #### [place] [address] USALeukocyte esterase Test strip Ql (U)NegativeNormalNegative The [facility] Physician GroupComment on above:Order Comment: Name Collection Type:: Clean-Voided MidstreamPerformed By: #### URDS, UA, UHCG #### [facility] [address] [place] [address] USANitrite,UrineNegativeNormalNegativeKeralty Hospital Miami Physician GroupComment on above:Order Comment: Name Collection Type:: Clean-Voided MidstreamPerformed By: #### URDS, UA, UHCG #### [place] [id number] USAOccult Blood,UrineNegativeNormalNegativeThe [facility] Physician GroupComment on above:Order Comment: Name Collection Type:: Clean- Voided MidstreamPerformed By: #### URDS, UA, UHCG #### [place] [address] USApH (U)5.5 [pH]Normal5.0-9.0The [facility] Comment on above:Order Comment: Name Collection Type:: Clean-Voided Midstream Performed By: #### URDS, UA, UHCG #### [place] [address] USAProtein,UrineNegativeNormalNegativeThe [facility] Physician GroupComment on above:Order Comment: Name Collection Type:: Clean-Voided MidstreamPerformed By: #### URDS, UA, UHCG #### [place] [address] USASpecificy Roggen,Urine1.057Hltllj9.001-1.030The [facility] Physician GroupComment on above:Order Comment: Name Collection Type:: Clean- Voided MidstreamPerformed By: #### URDS, UA, UHCG #### [place] [address] USAUrobilinogen,UrineNormalNormalNormalThe [facility] Physician GroupComment on above:Order Comment: Name Collection Type:: Clean- Voided MidstreamPerformed By: #### URDS, UA, UHCG #### [place] [address] USAUrobilinogen Test strip (U) [Mass/Vol]Ordered By: Heladio Robbins on 02-38-3427Tubxrmpxtfyl (U) [Mass/Vol]Urobilinogen [Mass/volume] in Urine by Test stripMorrow County HospitalWBC Auto (Bld) [#/Vol] Ordered By: Heladio Robbins on 69-74-1943DZG (Bld) [#/Vol]Leukocytes [#/volume] in Blood by Automated countHigh3.8-11.6FFulton County Health CenterpH Test strip (U)Ordered By: Heladio Robbins on 53-58-4381qV (U)pH of Urine by Test strip 5.0-9.0[facility], AvonECG 12 lead ECGon 51-21-1757UXQ 12 lead ECGFAIRFIELD MEDICAL [facility] Main [place] [address] [place] [address] Electrocardiograph Report Signed Patient: Shahla Thapa MR#: [id number] : 1980 Acct:[id number] Age/Sex: 44 / F ADM Date: 06/11/24 Loc: Room: [address] [place] [address] Type: ADM IN Attending Dr: Vivek Antoine [...] QT Abnormal ECG Confirmed by Kayla Herndon ([id number]) on 06/12/2024 10:51:46 AM Referred By: Electronically Signed By: Kayla Herndon Transcribed By: MUS Signed By Kayla Herndon MD [address] [place] [address] Physician GroupAlanine aminotransferase [Enzymatic activity/volume] in Serum or PlasmaOrdered By: Cole Cast on 92-84-3563CRB [Catalytic activity/Vol]Alanine aminotransferase [Enzymatic activity/volume] in Serum or Plasma7-[facility], AvonAlbumin [Mass/volume] in Serum or Plasma by Bromocresol green (BCG) dye binding methoOrdered By: Cole Cast on 53-51-3135Dtecazq BCG dye [Mass/Vol]Albumin [Mass/volume] in Serum or Plasma by Bromocresol green (BCG) dye binding metho3.5-5.7FFulton County Health CenterAlkaline phosphatase [Enzymatic activity/volume] in Serum or PlasmaOrdered By: Cole Cast on 26-31-7745WVK [Catalytic activity/Vol]Alkaline phosphatase [Enzymatic activity/volume] in Serum or Eboenk44-236IsmjslhweSelect Medical [facility], AvonAmphetamine Screen Ql (U)Ordered By: Cole Cast on 83-49-2679Kspkmbhvromu Ql (U)Amphetamines screenNegativeSelect Medical [facility], AvonAppearance of UrineOrdered By: Cole Cast on 27-71-3045Jcbggtmqab (U)Urine appearanceClearFFulton County Health CenterAspartate aminotransferase [Enzymatic activity/volume] in Serum or PlasmaOrdered By: Cole Cast on 46-29-6075NZP [Catalytic activity/Vol]Aspartate aminotransferase [Enzymatic activity/volume] in Serum or Myrnqg38-27ZpgiqgwdhSelect Medical [facility], AvonBacteria [Presence] in Urine by AutomatedOrdered By: Cole Cast on 71-81-2049Zmvvyetr Auto Ql (U)Bacteria [Presence] in Urine by AutomatedNone Seen [facility], AvonBarbiturates [Presence] in Urine by Screen methodOrdered By: Cole Csat on 16-21-0266Yozrfuwmevfe Screen Ql (U) Barbiturates [Presence] in Urine by Screen methodNegativeSelect Medical [facility], AvonBasophils Auto (Bld) [#/Vol]Ordered By: Cole Cast on 06-11-2024 Basophils (Bld) [#/Vol]Automated basophil count0.0-0.2FFulton County Health CenterBasophils/100 WBC Auto (Bld)Ordered By: Cole Cast on 06-11-2024 Basophils/100 WBC (Bld)Automated basophil %.[facility] Benzodiazepines Screen Ql (U)Ordered By: Cole Cast on 06-11-2024 Benzodiazepines Ql (U)Benzodiazepines [Presence] in Urine by Screen method NegativeSelect Medical [facility] Clinic [facility] Hospital, AvonBenzoylecgonine [Presence] in Urine by Screen methodOrdered By: Cole Cast on 93-54-9969Ezowszkvnyprhus Screen Ql (U) Benzoylecgonine [Presence] in Urine by Screen methodNegativeSelect Medical [facility], AvonBilirubin Test strip Ql (U)Ordered By: Cole Cast on 06-11-2024 Bilirubin Ql (U)Bilirubin.total [Presence] in Urine by Test stripNegative [facility], AvonBilirubin.total [Mass/volume] in Serum or PlasmaOrdered By: Cole Cast on 25-39-5726Lwwwxiycx [Mass/Vol]Bilirubin.total [Mass/volume] in Serum or Plasma0.3-1.0[facility], AvonCalcium [Mass/volume] in Serum or PlasmaOrdered By: Cole Cast on 63-66-5124Ilggfeg [Mass/Vol]Calcium [Mass/volume] in Serum or Plasma8.6-10.3FFulton County Health CenterCannabinoids [Presence] in Urine by Screen methodOrdered By: Cole Cast on 68-90-5280Zurjrjtpzbud Screen Ql (U)Cannabinoids [Presence] in Urine by Screen methodNegativeSelect Medical [facility] Hospital, AvonComment on above:These are unconfirmed results and should not be used for legal purposes. Drug Cut-Off Concentration: AMPH 1000 ng/mL SANDEEP 200 ng/mL JERSON 200 ng/mL COCM 300 ng/mL OP 300 ng/mL PCP 25 ng/mL THC 20 ng/mLCarbon dioxide, total [Moles/volume] in Serum or PlasmaOrdered By: Cole Cast on 88-25-4106TZ1 [Moles/Vol]Carbon dioxide, total [Moles/volume] in Serum or Njuskc09.0-31.0[facility], AvonChloride [Moles/volume] in Serum or PlasmaOrdered By: Cole Cast on 92-80-5060Auglygnw [Moles/Vol]Chloride [Moles/volume] in Serum or Yujuqt04-003 [facility], AvonCholesterol [Mass/volume] in Serum or Plasma Ordered By: Vivek Antoine on 45-61-8662Xyshzifjdfr [Mass/Vol]Cholesterol [Mass/volume] in Serum or RkysfyUoa700-463NpreosdcoSelect Medical [facility] Clinic [facility], [place] Comment on above:Chol less than 200 mg/dl low riskChol 201-239 mg/dl borderline riskChol 240 mg/dl and greater high riskCholesterol in HDL [Mass/volume] in Serum or PlasmaOrdered By: Vivek Antoine on 60-48-4122Zemlaxnodyt in HDL [Mass/Vol]Serum or plasma high density lipoprotein (HDL) cholesterol qvljxkpouts99-21CyhyzyfqiSelect Medical Cleveland Clinic Rehabilitation Hospital, AvonComment on above:HDL CHOL ATP- III CLASSIFICATION Cardiovascular RiskHDL > or equal to 60 mg/dL LOWHDL < 40 mg/dL HIGHCholesterol in LDL Calc [Mass/Vol]Ordered By: Vivek Antoine on 81-33-5068Wnbafxcdtqn in LDL [Mass/Vol]Cholesterol in LDL [Mass/volume] in Serum or Plasma by calculationSelect Medical Cleveland Clinic Rehabilitation Hospital, AvonComment on above:LDL ATP III CLASSIFICATIONLDL less than 100 mg/dL OptimalLDL 100-129 mg/dL Near or above ambjdcjLWY065-178 mg/dL Borderline highLDL 160-189 mg/dL HighLDL greater than 189 mg/dL Very highCholesterol in VLDL Calc [Mass/Vol]Ordered By: Vivek Antoine on 49-38-9267Tehzaobbtkh in VLDL [Mass/Vol]Cholesterol in VLDL [Mass/volume] in Serum or Plasma by calculationSelect Medical [facility] Clinic [facility] Hospital, AvonColor Auto (U)Ordered By: Cole Cast on 12-76-9805Tlbww (U)Color of Urine by AutoYellowSelect Medical Cleveland Clinic Rehabilitation Hospital, AvonComplete Blood Count Auto Diffon 69-24-9003Wxetsedha (Bld) [#/Vol]0.1 10*3/uLNormal0.0-0.2The [facility] Physician GroupComment on above:Result Comment: PERFORMED BY: [place] [address] PATHOLOGIST PAPER LATCHER JUS FAUSTIN M.D.Performed By: #### CMP, ETOH, CBC #### [facility] [address] [place] [address] USABasophils/100 WBC (Bld)1.1 %Normal.The [facility] Physician GroupComment on above:Performed By: #### CMP, ETOH, CBC #### [facility] [address] [place] [address] USAEosinophils (Bld) [#/Vol]0.1 10*3/uLNormal0.0-0.45The [facility] Physician GroupComment on above:Performed By: #### CMP, ETOH, CBC #### [address] [place] [address] USAEosinophils/100 WBC (Bld)0.9 %Normal.The [facility] Physician GroupComment on above:Performed By: #### CMP, ETOH, CBC #### [place] [address] USAErythrocyte distribution width (RBC) [Ratio]16.0 %High 11.9-15.3The [facility] Physician GroupComment on above:Performed By: #### CMP, ETOH, CBC #### [place] [address] USAHematocrit (Bld) [Volume fraction]37.1 %Aytvsx28.0-46.4The [facility] Physician GroupComment on above:Performed By: #### CMP, ETOH, CBC #### [place] [address] USAHemoglobin (Bld) [Mass/Vol]12.3 g/lLDkacwx13.8-15.4The [facility] Physician GroupComment on above:Performed By: #### CMP, ETOH, CBC #### [place] [address] USALymphocytes (Bld) [#/Vol]2.6 10*3/uLNormal1.00-4.8The [facility] Physician GroupComment on above:Performed By: #### CMP, ETOH, CBC #### [place] [address] USALymphocytes/100 WBC (Bld)25.4 %Normal.The [facility] Physician GroupComment on above:Performed By: #### CMP, ETOH, CBC #### [place] [address] USAMCH (RBC) [Entitic mass]29.5 cnJhmxlv59.7-34.3The [facility] Physician GroupComment on above:Performed By: #### CMP, ETOH, CBC #### [place] [address] USAMCV (RBC) [Entitic vol]88.8 vIXssptz82-429Sxs [facility] Physician GroupComment on above:Performed By: #### CMP, ETOH, CBC #### [place] [address] USAMean Corpuscular HGB Conc33.2 g/eSEyzllr55.0-35.0The [facility] Physician GroupComment on above:Performed By: #### CMP, ETOH, CBC #### [place] [address] USAMonocytes (Bld) [#/Vol]0.7 10*3/uLNormal0.0-0.8The [facility] Physician GroupComment on above:Performed By: #### CMP, ETOH, CBC #### [place] [address] USAMonocytes/100 WBC (Bld)18.12 %Normal0.00-20.00The [facility] Physician GroupComment on above:Performed By: #### CMP, ETOH, CBC #### [place] [address] USAMonocytes/100 WBC (Bld)7.1 %Normal.The [facility] Physician GroupComment on above:Performed By: #### CMP, ETOH, CBC #### [place] [address] USANeutrophils (Bld) [#/Vol]6.7 10*3/uLNormal1.8-7.7The [facility] Physician GroupComment on above:Performed By: #### CMP, ETOH, CBC #### [place] [address] USANeutrophils/100 WBC (Bld)65.5 %Normal.The [facility] Physician GroupComment on above:Performed By: #### CMP, ETOH, CBC #### [facility] [address] [place] [address] USANRBC%0.1 /100{WBC}Normal0-0.5The [facility] Group Comment on above:Performed By: #### CMP, ETOH, CBC #### [place] [address] USAPlatelet mean volume (Bld) [Entitic vol]7.7 fLNormal 6.3-10.7The [facility] Physician GroupComment on above:Performed By: #### CMP, ETOH, CBC #### [facility] [address] [place] [address] USAPlatelets (Bld) [#/Vol]311 10*3/wWLulssy994-330Ups [facility] Physician GroupComment on above:Performed By: #### CMP, ETOH, CBC #### [place] [address] USARBC (Bld) [#/Vol]4.18 10*6/uLNormal3.60-5.00The [facility] Physician GroupComment on above:Performed By: #### CMP, ETOH, CBC #### [place] [address] USAWBC (Bld) [#/Vol]10.3 10*3/uLNormal3.8-11.6The [facility] Physician GroupComment on above:Performed By: #### CMP, ETOH, CBC #### [place] [address] USAComprehensive Metabolic Panelon 25-38-5330Prlpqzd [Mass/Vol]4.0 g/dLNormal3.5-5.7The [facility] Physician GroupComment on above: Performed By: #### CMP, ETOH, CBC #### [place] [address] USAAlbumin/Globulin [Mass ratio]1.1 {ratio}NormalThe [facility] Physician GroupComment on above:Performed By: #### CMP, ETOH, CBC #### [place] [address] USAALP [Catalytic activity/Vol]84 U/LQudvwn84-179Bsq [facility] Physician GroupComment on above:Performed By: #### CMP, ETOH, CBC #### [place] [address] USAALT [Catalytic activity/Vol]22 U/LNormal7-52The [facility] Physician GroupComment on above:Performed By: #### CMP, ETOH, CBC #### [facility] [address] [place] [address] USAAnion gap [Moles/Vol]10.9 mmol/LNormal6.0-15.0The [facility] Physician GroupComment on above:Performed By: #### CMP, ETOH, CBC #### [facility] [address] [place] [address] USAAST [Catalytic activity/Vol]20 U/JFafvvb32-80Ynl [facility] Physician GroupComment on above:Performed By: #### CMP, ETOH, CBC #### [facility] [address] [place] [address] USABilirubin [Mass/Vol]0.4 mg/dLNormal0.3-1.0The [facility] Physician GroupComment on above:Performed By: #### CMP, ETOH, CBC #### [facility] [address] [place] [address] USACalcium [Mass/Vol]9.8 mg/dLNormal8.6-10.3The [facility] Physician GroupComment on above:Performed By: #### CMP, ETOH, CBC #### [facility] [address] [place] [address] USAChloride [Moles/Vol]103 mmol/BMgdvsz70-766Tec [facility] Physician GroupComment on above:Performed By: #### CMP, ETOH, CBC #### [facility] [address] [place] [address] USACO2 [Moles/Vol]29.2 mmol/TTqkmmx40.0-31.0The [facility] Physician GroupComment on above:Performed By: #### CMP, ETOH, CBC #### [facility] [address] [place] [address] USACreatinine [Mass/Vol]1.14 mg/dLNormal0.60-1.20The [facility] Physician GroupComment on above:Performed By: #### CMP, ETOH, CBC #### [facility] [address] [place] [address] USACreatinine Clr Calc Tcnhkcgw42.30NormalThe [facility] Physician GroupComment on above:Result Comment: PERFORMED BY: [place] [address] PATHOLOGIST PAPER LATCHER JUS FAUSTIN M.D.Performed By: #### CMP, ETOH, CBC #### [place] [address] USAGFR/1.73 sq M.predicted MDRD (S/P/Bld) [Vol rate/Area] mL/min/{1.73_m2}NormalThe [facility] Physician GroupComment on above:Performed By: #### CMP, ETOH, CBC #### [place] [address] USAGlobulin (S) [Mass/Vol]3.5 g/dLNormalThe [facility] Physician GroupComment on above:Performed By: #### CMP, ETOH, CBC #### [place] [address] USAGlucose [Mass/Vol]105 mg/yJNiit41-081Eru [facility] Physician GroupComment on above:Result Comment: Random Glucose Reference Range is dependent on time and content of last meal. Glucose of more than 200 mg/dL in a nonstressed, ambulatory subject supports the diagnosis of Diabetes Mellitus. ADA recommended reference rangePerformed By: #### CMP, ETOH, CBC #### [place] [address] USAPotassium [Moles/Vol]4.1 mmol/LNormal3.5-5.1The [facility] Physician GroupComment on above:Performed By: #### CMP, ETOH, CBC #### [place] [address] USAProtein [Mass/Vol]7.5 g/dLNormal6.4-8.9The [facility] Physician GroupComment on above:Performed By: #### CMP, ETOH, CBC #### [place] [address] USASodium [Moles/Vol]139 mmol/MOaxlhi221-625Koa [facility] Physician GroupComment on above:Performed By: #### CMP, ETOH, CBC #### [address] [place] [address] USAUrea nitrogen [Mass/Vol]18 mg/dLNormal7-25The [facility] Physician GroupComment on above:Performed By: #### CMP, ETOH, CBC #### [facility] [address] [place] [address] USACreatinine [Mass/volume] in Serum or PlasmaOrdered By: Cole Cast on 11-58-8692Awgsodvswa [Mass/Vol]Creatinine [Mass/volume] in Serum or Plasma0.60-1.20[facility], AvonDipstick and Microscopicon 17-05-8817Kwtgenwcqt (U)ClearNormalClearKeralty Hospital Miami Physician GroupComment on above:Order Comment: Name Collection Type:: Clean-Voided MidstreamPerformed By: #### CMP, ETOH, CBC #### [facility] [address] [place] [address] USABacteria,UrineRareNormalNone SeenThe [facility] Physician GroupComment on above:Order Comment: Name Collection Type:: Clean-Voided MidstreamPerformed By: #### CMP, ETOH, CBC #### [facility] [address] [place] [address] USABilirubin,UrineNegativeNormalNegativeKeralty Hospital Miami Physician GroupComment on above:Order Comment: Name Collection Type:: Clean- Voided MidstreamPerformed By: #### CMP, ETOH, CBC #### [facility] [address] [place] [address] USAColor (U)YellowNormalYellowKeralty Hospital Miami Physician Group Comment on above:Order Comment: Name Collection Type:: Clean-Voided Midstream Performed By: #### CMP, ETOH, CBC #### [facility] [address] [place] [id number] USAGlucose Ql (U)NormalNormalNormalThe [facility] Physician GroupComment on above:Order Comment: Name Collection Type:: Clean-Voided MidstreamPerformed By: #### CMP, ETOH, CBC #### [facility] [address] [place] [address] USAHyaline Casts,Dmggf81-04Gnkm7-1Wzu [facility] Physician GroupComment on above:Order Comment: Name Collection Type:: Clean-Voided MidstreamPerformed By: #### CMP, ETOH, CBC #### [facility] [address] [place] [address] USAKetones Ql (U)TraceHighNegativeKeralty Hospital Miami Physician GroupComment on above:Order Comment: Name Collection Type:: Clean-Voided MidstreamPerformed By: #### CMP, ETOH, CBC #### [facility] [address] [place] [address] USALeukocyte esterase Test strip Ql (U)3+HighNegativeKeralty Hospital Miami Physician GroupComment on above:Order Comment: Name Collection Type:: Clean-Voided MidstreamPerformed By: #### CMP, ETOH, CBC #### [facility] [address] [place] [address] USAMucus,Urine1+Critically abnormalThe [facility] Physician GroupComment on above:Order Comment: Name Collection Type:: Clean-Voided MidstreamPerformed By: #### CMP, ETOH, CBC #### [facility] [address] [place] [address] USANitrite,UrineNegativeNormalNegativeKeralty Hospital Miami Physician GroupComment on above:Order Comment: Name Collection Type:: Clean-Voided MidstreamPerformed By: #### CMP, ETOH, CBC #### [place] [id number] USAOccult Blood,UrineNegativeNormalNegativeThe [facility] Physician GroupComment on above:Order Comment: Name Collection Type:: Clean- Voided MidstreamPerformed By: #### CMP, ETOH, CBC #### [facility] [address] [place], [place] [address] USApH (U)5.5 [pH]Normal5.0-9.0The [facility] Comment on above:Order Comment: Name Collection Type:: Clean-Voided Midstream Performed By: #### CMP, ETOH, CBC #### [facility] [address] [place], [place] [address] USAProtein (U) [Mass/Vol]20 mg/dLHighNegativeKeralty Hospital Miami Physician GroupComment on above:Order Comment: Name Collection Type:: Clean- Voided MidstreamPerformed By: #### CMP, ETOH, CBC #### [facility] [address] [place] [address] USARBC,Bkubj3-4Xmorev2-9Lqi [facility] Physician GroupComment on above:Order Comment: Name Collection Type:: Clean-Voided MidstreamPerformed By: #### CMP, ETOH, CBC #### [facility] [address] [place] [address] USASpecificy Roggen,Urine1.101Eyishe3.001-1.030The [facility] Physician GroupComment on above:Order Comment: Name Collection Type:: Clean- Voided MidstreamPerformed By: #### CMP, ETOH, CBC #### [place] [address] USASquamous Epithelial Cell,Yxhtk7-2Mupr2-7Htz [facility] Physician GroupComment on above:Order Comment: Name Collection Type:: Clean- Voided MidstreamPerformed By: #### CMP, ETOH, CBC #### [facility] [address] [place] [address] USAUrobilinogen,Urine3 mg/dLHighNormalThe [facility] Physician GroupComment on above:Order Comment: Name Collection Type:: Clean-Voided MidstreamPerformed By: #### CMP, ETOH, CBC #### [place] [address] USAWBC,Hiioa30-28Rtnz2-9Pym [facility] Physician GroupComment on above:Order Comment: Name Collection Type:: Clean-Voided MidstreamPerformed By: #### CMP, ETOH, CBC #### [place] [address] USADrug Screen,Urineon 00-42-4204Mqhtkvfhjvr Screen,Urine NegativeNormalNegativeThe [facility] Physician GroupComment on above:Performed By: #### CMP, ETOH, CBC #### [place] [address] USABarbiturate Screen,UrineNegativeNormalNegativeThe [facility] Physician GroupComment on above:Performed By: #### CMP, ETOH, CBC #### [place] [address] USABenzodiazepines Screen,UrineNegativeNormalNegativeThe [facility] Physician GroupComment on above:Performed By: #### CMP, ETOH, CBC #### [place] [address] USACannabinoid Screen,UrineNegativeNormalNegativeThe [facility] Physician GroupComment on above:Result Comment: These are unconfirmed results and should not be used for legal purposes. Drug Cut-Off Concentration: AMPH 1000 ng/mL SANDEEP 200 ng/mL JERSON 200 ng/mL COCM 300 ng/mL OP 300 ng/mL PCP 25 ng/mL THC 20 ng/mL PERFORMED BY: [place] [address] PATHOLOGIST PAPER LATCHER JUS FAUSTIN M.D.Performed By: #### CMP, ETOH, CBC #### [place] [address] USACocaine Screen,UrineNegativeNormalNegativeThe [facility] Physician GroupComment on above:Performed By: #### CMP, ETOH, CBC #### [place] [address] USAOpiate Screen,UrineNegativeNormalNegativeThe [facility] Physician GroupComment on above:Performed By: #### CMP, ETOH, CBC #### [place] [address] USAPhencyclidine Screen,UrineNegativeNormalNegativeThe Formerly [facility] Center Physician GroupComment on above:Performed By: #### CMP, ETOH, CBC #### [place] [address] USAEosinophils Auto (Bld) [#/Vol]Ordered By: Cole Cast on 06-44-5651Gtiqdkpfpig (Bld) [#/Vol]Automated eosinophil count0.0-0.45[facility], AvonEosinophils/100 WBC Auto (Bld)Ordered By: Cole Cast on 76-40-1150Mzphyndwtjg/100 WBC (Bld)Automated eosinophil %.[facility], AvonEpithelial cells.squamous [#/area] in Urine sediment by Automated countOrdered By: Cole Cast on 74-66-3908Ylqmjfrqwf cells.squamous Auto (Urine sed) [#/Area]Epithelial cells.squamous [#/area] in Urine sediment by Automated countHigh0-2FFulton County Health CenterErythrocyte distribution width Auto (RBC) [Ratio]Ordered By: Cole Cast on 17-73-0251Rbwuycxpmtt distribution width (RBC) [Ratio]Erythrocyte distribution width [Ratio] by Automated countHigh 11.9-15.3FFulton County Health CenterErythrocytes [#/area] in Urine sediment by Automated countOrdered By: Cole Cast on 63-81-2358USZ Auto (Urine sed) [#/Area]Erythrocytes [#/area] in Urine sediment by Automated count0-4 [facility], AvonEthanol [Mass/volume] in Serum or PlasmaOrdered By: Cole Cast on 97-06-1790Ppamgmk [Mass/Vol]Ethanol [Mass/volume] in Serum or PlasmaSelect Medical Cleveland Clinic Rehabilitation Hospital, AvonComment on above:Test not performed Ethyl Alcohol Profileon 35-13-0427Tgextjg [Mass/Vol]mg/dLNoAtrium Health Wake [facility] Physician GroupComment on above:Performed By: #### CMP, ETOH, CBC #### [facility] [address] [place] [address] USAPercent EthanolNot performedSarasota Memorial Hospital Physician GroupComment on above:Result Comment: PERFORMED BY: [address] [place] [address] PATHOLOGIST PAPER LATCHER JUS FAUSTIN M.D.Performed By: #### CMP, ETOH, CBC #### [facility] [address] [place] [address] USAGlobulin Calc (S) [Mass/Vol]Ordered By: Cole Cast on 16-91-8900Gvqrdlpi (S) [Mass/Vol]Serum globulin measurement by calculation (mass/volume)[facility], AvonGlucose [Mass/volume] in Serum or PlasmaOrdered By: Cole Cast on 68-55-0303Tzwwvbm [Mass/Vol]Glucose [Mass/volume] in Serum or YvysdhHwka09-200SlwofwpchSelect Medical [facility], [place] Comment on above:ADA recommended reference rangeRandom Glucose Reference Range is dependent on time and content of last meal. Glucose of more than 200 mg/dL in a nonstressed, ambulatory subject supports the diagnosisof Diabetes Mellitus. Glucose [Mass/volume] in Urine by Test stripOrdered By: Cole Cast on 44-51-9502Uvlizgc Test strip (U) [Mass/Vol]Glucose [Mass/volume] in Urine by Test stripNormalSelect Medical [facility], AvonHC ( test) IA.rapid Ql (U)Ordered By: Cole Cast on 79-80-7242LCQ ( test) Ql (U)Urine human chorionic gonadotropin (hCG) detection by immunoassayAdena Fayette Medical Center,Urineon 34-15-7085Oiwg HCG ( test) Ql (U)Negative NormalThe [facility] Physician GroupComment on above:Order Comment: Name Collection Type:: Clean-Voided MidstreamResult Comment: PERFORMED BY: [place] [address] PATHOLOGIST PAPER LATCHER JUS FAUSTIN M.D.Performed By: #### CMP, ETOH, CBC #### [place] [address] USAHematocrit Auto (Bld) [Volume fraction]Ordered By: Cole Cast on 72-02-7660Jycrcuqxlt (Bld) [Volume fraction]Hematocrit [Volume Fraction] of Blood by Automated count34.0-46.4FFulton County Health Center Hemoglobin Test strip Ql (U)Ordered By: Cole Cast on 62-20-6661Ttshnvduqw Ql (U)Hemoglobin [Presence] in Urine by Test stripNegativeSelect Medical [facility] Clinic [facility], AvonHemoglobin [Mass/volume] in BloodOrdered By: Cole Cast on 44-83-9936Dbtkvbdzwr (Bld) [Mass/Vol]Hemoglobin [Mass/volume] in Blood11.8-15.4 [facility], AvonHyaline casts [#/area] in Urine sediment by Automated countOrdered By: Cole Cast on 53-82-4450Qgbczle casts Auto (Urine sed) [#/Area]Hyaline casts [#/area] in Urine sediment by Automated countHigh0-8 [facility], AvonKetones Test strip Ql (U)Ordered By: Cole Cast on 79-85-6750Aadsprd Ql (U)Ketones [Presence] in Urine by Test stripHigh NegativeSelect Medical Cleveland Clinic Rehabilitation Hospital, AvonLeukocyte esterase [Presence] in Urine by Test stripOrdered By: Cole Cast on 08-77-8209Nvfedsvxn esterase Test strip Ql (U)Leukocyte esterase [Presence] in Urine by Test stripHighNegativeSelect Medical [facility], AvonLeukocytes [#/area] in Urine sediment by Automated count Ordered By: Cole Cast on 51-37-9172ZJM Auto (Urine sed) [#/Area]Leukocytes [#/area] in Urine sediment by Automated countHigh0-4FFulton County Health CenterLeukocytes [#/volume] corrected for nucleated erythrocytes in Blood by Automated counOrdered By: Cole Cast on 13-38-0114MYP corrected for nucl RBC Auto (Bld) [#/Vol]Leukocytes [#/volume] corrected for nucleated erythrocytes in Blood by Automated coun3.8-11.6FFulton County Health CenterLipid Panelon 40-14-3431Kfzakoygtij [Mass/Vol]132 mg/wIDcb891-261Vlf [facility] Comment on above:Order Comment: FASTING Y Comment use from [employer] Comment: Chol less than 200 mg/dl low risk Chol 201-239 mg/dl borderline risk Chol 240 mg/dl and greater high riskPerformed By: #### CMP, ETOH, CBC #### [facility] [address] [place] [address] USACholesterol in HDL [Mass/Vol]46 mg/rYFwmjgc13-64Vgn [facility] Physician GroupComment on above:Order Comment: FASTING Y Comment use from [employer] Comment: HDL CHOL ATP-III CLASSIFICATION Cardiovascular Risk HDL > or equal to 60 mg/dL LOW HDL < 40 mg/dL HIGHPerformed By: #### CMP, ETOH, CBC #### [facility] [address] [place] [address] USACholesterol.total/Cholesterol in HDL [Mass ratio]2.9 {ratio}Normal<5.0The [facility] Physician GroupComment on above:Order Comment: FASTING Y Comment use from ERPerformed By: #### CMP, ETOH, CBC #### [facility] [address] [place] [address] USALDL Cholesterol,Ubdagfujfy72 mg/dLNormal0-100The [facility] Physician GroupComment on above:Order Comment: FASTING Y Comment use from ER Result Comment: LDL ATP III CLASSIFICATION LDL less than 100 mg/dL Optimal LDL 100-129 mg/dL Near or above optimal LDL 130-159 mg/dL Borderline high LDL 160-189 mg/dL High LDL greater than 189 mg/dL Very highPerformed By: #### CMP, ETOH, CBC #### [facility] [address] [place] [address] USATriglyceride w/Brqcba860 mg/dLNormal0-149The [facility] Physician GroupComment on above:Order Comment: FASTING Y Comment use from ER Result Comment: TRIG ATP III CLASSIFICATION TRIG less than 150 mg/dL Normal TRIG 150-199 mg/dL Borderline high TRIG 200-500 mg/dL High TRIG greater than 500 mg/dL Very high Standard traceable to the Center for Disease Conrtrol and Prevention (CDC) test method.Performed By: #### CMP, ETOH, CBC #### [facility] [address] [place] [address] USAVLDL GQNWSTHHCZY78 mg/dLNormalThe [facility] Physician GroupComment on above:Order Comment: FASTING Y Comment use from ERPerformed By: #### CMP, ETOH, CBC #### [facility] [address] [place] [address] USALymphocytes Auto (Bld) [#/Vol]Ordered By: Cole Cast on 46-57-8281Askprrmhioe (Bld) [#/Vol]Lymphocytes [#/volume] in Blood by Automated count1.00-4.8[facility], AvonLymphocytes/100 WBC Auto (Bld) Ordered By: Cole Cast on 29-60-3156Odwdutofdws/100 WBC (Bld)Lymphocytes/100 leukocytes in Blood by Automated count.[facility], AvonMCH Auto (RBC) [Entitic mass]Ordered By: Cole Cast on 19-28-9956TIV (RBC) [Entitic mass]MCH [Entitic mass] by Automated count24.7-34.3FFulton County Health CenterMCHC Auto (RBC) [Mass/Vol]Ordered By: Cole Cast on 67-77-2594VJLI (RBC) [Mass/Vol]MCHC [Mass/volume] by Automated count32.0-35.0[facility], AvonMCV Auto (RBC) [Entitic vol]Ordered By: Cole Cast on 06-11-2024 MCV (RBC) [Entitic vol]MCV [Entitic volume] by Automated chuls46-846HdemwiejfSelect Medical Cleveland Clinic Rehabilitation Hospital, AvonMonocyte distribution width [Entitic volume] in Blood by AutomatedOrdered By: Cole Cast on 19-21-8176Uprphbqp distribution width Auto (Bld) [Entitic vol]Monocyte distribution width [Entitic volume] in Blood by Automated0.00-20.00[facility], AvonMonocytes Auto (Bld) [#/Vol] Ordered By: Cole Cast on 20-37-8357Nhimdrfwg (Bld) [#/Vol]Automated blood monocyte count0.0-0.8[facility], AvonMonocytes/100 WBC Auto (Bld)Ordered By: Cole Cast on 88-63-9540Wischjdgn/100 WBC (Bld)Automated monocyte %.[facility], AvonMucus [Presence] in Urine by AutomatedOrdered By: Cole Cast on 59-36-0339Qzbgc Auto Ql (U)Mucus [Presence] in Urine by AutomatedAbnormalSelect Medical [facility] Clinic Rehabilitation Hospital, AvonNeutrophils Auto (Bld) [#/Vol]Ordered By: Cole Cast on 21-40-6211Mcjtrawwsqh (Bld) [#/Vol] Neutrophils [#/volume] in Blood by Automated count1.8-7.7FFulton County Health CenterNeutrophils/100 WBC Auto (Bld)Ordered By: Cole Cast on 90-22-4345Itzizjsokva/100 WBC (Bld)Automated neutrophil %.[facility], AvonNitrite Test strip Ql (U)Ordered By: Cole Cast on 06-11-2024 Nitrite Ql (U)Nitrite [Presence] in Urine by Test stripNegSouthern Ohio Medical CenterNo Panel InformationOrdered By: Cole Cast on 06-11-2024 Estimated GFR (CKD-EPI)> 60.0 mL/MinSelect Medical Cleveland Clinic Rehabilitation Hospital, AvonPharmacy Creatinine Clearance (Chem76.30[facility], AvonNucleated erythrocytes [Presence] in Blood by Automated countOrdered By: Cole Cast on 81-13-0312Mqonrkulh RBC Auto Ql (Bld)Nucleated erythrocytes [Presence] in Blood by Automated count0-0.5FFulton County Health CenterOffice Visiton 80-85-2501Zmvgsq-up [id number] Shahla Thapa 1980 F Date Provider Department Center 06/11/2024 [facility] Family History Problem Relation Age of Onset Hypertension Mother Cancer Mother Stroke Mother Family Status - Relation Status Age at Mother Father Alive Sister Alive Brother Alive Level of Service:[address] [place] OFFICE/OUTPATIENT NEW MODERATE MDM 45 MINUTESNormal Miami Valley HospitalOpiates [Presence] in Urine by Screen method Ordered By: Cole Cast on 79-83-5865Afebwzh Screen Ql (U)Opiates [Presence] in Urine by Screen methodNegSouthern Ohio Medical CenterPhencyclidine Screen Ql (U)Ordered By: Cole Cast on 14-73-5568Zidwpjuscswbd Ql (U) Phencyclidine [Presence] in Urine by Screen methodNegSouthern Ohio Medical CenterPlatelet mean volume Auto (Bld) [Entitic vol]Ordered By: Cole Cast on 66-56-6949Bkxnrihd mean volume (Bld) [Entitic vol]Platelet mean volume [Entitic volume] in Blood by Automated count6.3-10.7FFulton County Health CenterPlatelets Auto (Bld) [#/Vol]Ordered By: Cole Cast on 98-17-9663Gjroqwmir (Bld) [#/Vol]Platelets [#/volume] in Blood by Automated dugvq487-625CcwsjusiaSelect Medical Cleveland Clinic Rehabilitation Hospital, AvonPotassium [Moles/volume] in Serum or PlasmaOrdered By: Cole Cast on 06-47-6211Xmjzfconx [Moles/Vol]Potassium [Moles/volume] in Serum or Plasma3.5-5.1FFulton County Health CenterProtein Test strip (U) [Mass/Vol]Ordered By: Cole Cast on 10-04-6898Gketmdx (U) [Mass/Vol]Protein [Mass/volume] in Urine by Test stripHighNegativeSelect Medical Cleveland Clinic Rehabilitation Hospital, AvonProtein [Mass/volume] in Serum or PlasmaOrdered By: Cole Cast on 37-72-9083Syvsipk [Mass/Vol]Protein [Mass/volume] in Serum or Plasma6.4-8.9 [facility], AvonRBC Auto (Bld) [#/Vol]Ordered By: Cole Cats on 68-34-4753AHV (Bld) [#/Vol]Erythrocytes [#/volume] in Blood by Automated count3.60-5.00St. Francis Hospitalerum or plasma albumin/globulin mass ratioOrdered By: Cole Cast on 60-25-3096Lyobejr/Globulin [Mass ratio] Serum or plasma albumin/globulin mass ratioSelect Medical Cleveland Clinic Rehabilitation [facility], Avon Serum or plasma anion gap determinationOrdered By: Cole Cast on 06-11-2024 Anion gap [Moles/Vol]Serum or plasma anion gap determination6.0-15.0St. Francis Hospitalerum or plasma total cholesterol/high density lipoprotein (HDL) cholesterol mass ratOrdered By: Vivek Antoine on 55-33-8333Qhjvdxmnxwi.total/Cholesterol in HDL [Mass ratio]Serum or plasma total cholesterol/high density lipoprotein (HDL) cholesterol mass rat<5.0St. Francis Hospitalodium [Moles/volume] in Serum or PlasmaOrdered By: Cole Cast on 06-86-8898Wfvydj [Moles/Vol]Sodium [Moles/volume] in Serum or Plasma 136-145St. Francis Hospitalpecific gravity Test strip (U) [Rel density]Ordered By: Cole Cast on 25-11-1739Fnzmbyah gravity (U) [Rel density] Specific gravity of Urine by Test strip1.001-1.030[facility], AvonThyroid Stim Hormone w/Rflxon 88-40-5085Varkchl Stim Hormone w/Rflx3.58 u[iU]/mLNormal0.45-5.33The [facility] Physician GroupComment on above:Order Comment: FASTING Y Comment use from ERPerformed By: #### CMP, ETOH, CBC #### [facility] [address] [place] [address] USAThyrotropin [Units/volume] in Serum or PlasmaOrdered By: Vivek Antoine on 67-17-3750QYK QnThyrotropin [Units/volume] in Serum or Plasma0.45-5.33[facility], AvonTriglyceride [Mass/volume] in Serum or PlasmaOrdered By: Vivek Antoine on 42-84-9228Gezwpsjrewpw [Mass/Vol]Triglyceride [Mass/volume] in Serum or Plasma0-149[facility], AvonComment on above:TRIG ATP III CLASSIFICATIONTRIG less than 150 mg/dL NormalTRIG 150-199 mg/dL Borderline highTRIG 200-500 mg/dL High TRIG greater than 500 mg/dL Very highStandard traceable to the Center for Disease Co nrtrol and Prevention (CDC) test method.Urea nitrogen [Mass/volume] in Serum or PlasmaOrdered By: Cole Cast on 86-03-2426Tsww nitrogen [Mass/Vol]Urea nitrogen [Mass/volume] in Serum or Plasma7[facility], AvonUrine Cultureon 55-86-0322Binoprhj identified Cx Nom (U)<9,000 colonies/ml mixed bacterial skin contaminants 2 Days PERFORMED BY: [place] [address] PATHOLOGIST PAPER LATCHER JUS FAUSTIN M.D.NormalThe [facility] Physician GroupComment on above: Performed By: #### CMP, ETOH, CBC #### [facility] [address] [place] [address] USAUrine cultureOrdered By: Cole Cast on 30-65-8271Kuoirwob identified Cx Nom (U)Urine cultureSelect Medical Cleveland Clinic Rehabilitation Hospital, AvonUrobilinogen Test strip (U) [Mass/Vol]Ordered By: Cole Cast on 89-93-4750Dvaucdpumodm (U) [Mass/Vol]Urobilinogen [Mass/volume] in Urine by Test stripHighNormalSelect Medical [facility] Clinic [facility] Hospital, AvonVitamin D 25 Hydroxy Totalon 53-70-0489Twulspo D 25 Hydroxy Total47.1 ng/fXMqmkcc20-460Sib [facility] Physician GroupComment on above:Order Comment: FASTING Y Comment use from ERResult Comment: VITAMIN D STATUS 25(OH)VITAMIN D RANGE (ng/mL) Deficient <20 Insufficient 20 to <30 Sufficient 30 to 100 Reference: Marsha Hillman, Ez MULTANI, et al. Evaluation,treatment, and prevention of vitamin D deficiency; an Endocrine Society clinical practice guideline. JCEM. 2010; 96(7):191-. PERFORMED BY: [place] [address] PATHOLOGIST PAPER LATCHER JUS FAUSTIN M.D.Performed By: #### CMP, ETOH, CBC #### [address] Bailey StreetVitamin D+Metabolites [Mass/volume] in Serum or Plasma Ordered By: Vivek Antoine on 68-29-9018Dnupqsu D+Metabolites [Mass/Vol] Vitamin D+Metabolites [Mass/volume] in Serum or Mlxmdj12-647LnhntpazpSelect Medical Cleveland Clinic Rehabilitation Hospital, AvonComment on above:VITAMIN D STATUS 25(OH)VITAMIN D RANGE (ng/mL) Deficient <20 Insufficient 20 to <41Ggcgoehrmh68 to 100Reference: Marsha Hillman, Ez MULTANI, et al. Evaluation,treatment, and prevention of vitamin D deficiency; an Endocrine Society clinical practice guideline. JCEM. 2010; 96(7):191-.WBC Auto (Bld) [#/Vol]Ordered By: Cole Cast on 85-41-6900ECZ (Bld) [#/Vol]Leukocytes [#/volume] in Blood by Automated count 3.8-11.6FFulton County Health CenterpH Test strip (U)Ordered By: Cole Cast on 94-88-7668hE (U)pH of Urine by Test strip5.0-9.0[facility]30on 46-70-624690Lhkddgv: Pain - Adult Goal: Verbalizes/displays adequate comfort [...] 05/25/2024 1030 by Aminah Campbell RN Outcome: ProgressingNormalUniversFlower Hospital30Problem: Pain - Adult Goal: Verbalizes/displays adequate comfort [...] The clinical goals for the shift include VSSNormalUniversity Grand [facility]30The patient is Moderately Stable - Low risk [...] are monitored and maintained or improved Outcome: ProgressingNormalUniversFlower HospitalBASIC METABOLIC PANELon 38-40-2125Eyjxp gap [Moles/Vol]10 mmol/LNormal7-20UnAdena Pike Medical CenterComment on above:Performed By: #### [id number] ####[facility] ([facility])[address] [address]Chivbkx [Mass/Vol]8.7 mg/dLNormal 8.6-10.3UnAdena Pike Medical CenterComment on above:Performed By: #### [id number] ####[facility] ([facility])[address] [place] [address]Tbaykeei [Moles/Vol]108 mmol/QCelg69-912RegrpvpadeAdena Pike Medical CenterComment on above:Performed By: #### [id number] ####[facility] ([facility])[address] [place] [address]UC9 [Moles/Vol]25 mmol/BTocxni23-98YumawzwjjrAdena Pike Medical CenterComment on above:Performed By: #### [id number] ####[facility] ([facility])[address] [place] [address]Fjsuifkaaf [Mass/Vol]1.04 mg/dLNormal 0.60-1.20UnAdena Pike Medical CenterComment on above:Performed By: #### [id number] ####[facility] ([facility])[address] [place] [address]KBDLNSWNWT FILTRATION RATE ML/MIN/1.73 SQ M.IIDFZALWX19.1 mL/min/1.73m*2Normal>60.0 [facility] HospitalComment on above:Result Comment: The [facility]???s estimated glomerular filtration rate (eG FR) will no longer include consideration of race [...] potential consequences that do not disproportionately affect anyone group of individuals. Performed By: #### [id number] ####[facility] ([facility])[address] [place], [place] [address]Oualjuz [Mass/Vol]100 mg/xPTirzon18-298OwsgewsfkmAdena Pike Medical CenterComment on above:Performed By: #### [id number] ####[facility] ([facility])[address] [place], [place] [address]Swdtzmflv [Moles/Vol]4.9 mmol/LNormal 3.5-5.1UnAdena Pike Medical CenterComment on above:Performed By: #### [id number] ####[facility] ([facility])[address] [place], [place] [address]Siizzt [Moles/Vol]138 mmol/YBtrijp291-130YpiqcocihpAdena Pike Medical CenterComment on above:Performed By: #### [id number] ####[facility] ([facility])[address] [place], [place] [address]Fnoh nitrogen [Mass/Vol]11 mg/dLNormal7-25UnAdena Pike Medical CenterComment on above:Performed By: #### [id number] ####[facility] ([facility])[address] [place], [place] [address]XZSV NITROGEN/CREATININE (MASS RATIO) IN SER/PLAS10.6NormalUniversFlower HospitalComment on above: Performed By: #### [id number] ####[facility] ([facility])[address] [place], [place] [address]GTFqr 60-32-1140Fzwpskfbhue distribution width (RBC) [Ratio]14.6 % Wsvxec97.5-15.0UnAdena Pike Medical CenterComment on above:Performed By: #### [id number] #### [facility] ([facility]) [address] [place], [place] [address]ULABNFLKGUT MEAN CORPUSCULAR HEMOGLOBIN CONCENTRATION (G/DL) BY OFVALWMJP88.6 g/dLLow32.0-35.0UnAdena Pike Medical CenterComment on above:Performed By: #### [id number] #### [facility] ([facility]) [address] [place], [place] [address]Qlevdcartl (Bld) [Volume fraction]30.7 %Low36.0-45.0UnAdena Pike Medical CenterComment on above:Performed By: #### [id number] #### [facility] ([facility]) [address] [place] [address]Pezlsajpzr (Bld) [Mass/Vol]9.7 g/dLLow12.0-15.0UnAdena Pike Medical CenterComment on above:Performed By: #### [id number] #### [facility] ([facility]) [address] [place] [address]YAJ (RBC) [Entitic mass]28.9 snYdwkew84.0-33.0UnAdena Pike Medical CenterComment on above:Performed By: #### [id number] #### [facility] ([facility]) [address] [place] [address]MFH (RBC) [Entitic vol]91.4 nCIkckai36.0-98.0UnAdena Pike Medical CenterComment on above:Performed By: #### [id number] #### [facility] ([facility]) [address] [place], [place] [address]EMKVQDLQB (10*3/UL) IN BLOOD AUTOMATED [id number] 10*3/uLNormal 150-400UnAdena Pike Medical CenterComment on above:Performed By: #### [id number] #### [facility] ([facility]) [address] [place], [place] [address]YLG (Bld) [#/Vol]3.36 10*6/uLLow3.80-5.00UnAdena Pike Medical CenterComment on above:Performed By: #### [id number] #### [facility] ([facility]) [address] [place], [place] [address]ERW (Bld) [#/Vol]5.23 10*3/uLNormal4.00-10.60UnAdena Pike Medical CenterComment on above:Performed By: #### [id number] #### [facility] ([facility]) [address] [place], [place] [address]dw [id number] Case Management Update Multidisciplinary rounds have been completed. Barriers to Discharge: Patient was transferred from [facility] with NSTEMI, abnormal EKG and stress [...] discharge disposition appropriate for patient?: Yes New Consults:NormalUnAdena Pike Medical Center30The patient is Moderately Stable - Low risk of patient condition declining or worsening The patient's goals for the shift include Comfort The clinical goals for the shift include [facility]NormalUniCleveland Clinic [facility]30The patient is Moderately Stable - Low risk of patient condition declining or worsening The patient's goals for the shift include Comfort The clinical goals for the shift include [facility] FARMNormalUniCleveland Clinic Lutheran HospitalANTI-XA (HEPARIN LEVEL)on 07-52-9957MVQHLFU UNFRACTIONATED (U/ML) IN PPP BY CHROMOGENIC METHOD0.49 IU/mLNormal0.3-0.7UnAdena Pike Medical Center Comment on above:Order Comment: Check anti-Xa level every 6 hours while on heparin infusion, or per protocol.Result Comment: Rivaroxaban and Apixaban will interfere with the anti Xa assay used to monitor UFH and LMWH.Performed By: #### [id number] #### [facility] ([facility]) [address] [place], [place] [address]CYIMij 23-53-3715YBZAZAPSC PARTIAL THROMBOPLASTIN TIME IN PPP BY COAGULATION ASSAY<20.0Low25.0-35.0UnAdena Pike Medical CenterComment on above:Order Comment: Baseline aPTT before initiating heparin infusion.Result Comment: Clinical significance of the APTT is questionable in the presence of heparin.Performed By: #### [id number] #### [facility] ([facility]) [address] [place], [place] [address]TKS WITH AUTO DIFFERENTIALon 15-42-7319Yvinzepsmnl distribution width (RBC) [Ratio]14.7 %Datxgk23.5-15.0UnAdena Pike Medical Center Comment on above:Performed By: #### [id number] #### [facility] ([facility]) [address] [place] [address]SBKFXRXPQZP MEAN CORPUSCULAR HEMOGLOBIN CONCENTRATION (G/DL) BY UVMKVFXEL11.8 g/dLLow32.0-35.0UnAdena Pike Medical CenterComment on above:Performed By: #### [id number] #### [facility] ([facility]) [address] [place] [place] [address]Eknrmqpkpt (Bld) [Volume fraction]30.5 %Low36.0-45.0UnAdena Pike Medical CenterComment on above:Performed By: #### [id number] #### [facility] ([facility]) [address] [place] [address]Ogujocdksd (Bld) [Mass/Vol]9.7 g/dLLow12.0-15.0UnAdena Pike Medical CenterComment on above:Performed By: #### [id number] #### [facility] ([facility]) [address] [place] [address]WJJHNRRI PLATELET FRACTION %1.3 %Normal0.8-6.3UnAdena Pike Medical CenterComment on above:Performed By: #### [id number] #### [facility] ([facility]) [address] [place] [address]RLF (RBC) [Entitic mass]29.5 qxNvxykf82.0-33.0UnAdena Pike Medical CenterComment on above:Performed By: #### [id number] #### [facility] ([facility]) [address] [place] [address]LOB (RBC) [Entitic vol]92.7 yPBdvfap24.0-98.0UnAdena Pike Medical CenterComment on above:Performed By: #### [id number] #### [facility] ([facility]) [address] [place] [address]UGUG (PER 100 WBCS) BY AUTOMATED COUNT0.0 %Ltpklf4TlewmfkghwAdena Pike Medical CenterComment on above:Performed By: #### [id number] #### [facility] ([facility]) [address] [address]ZVSIMJJUJ (10*3/UL) IN BLOOD AUTOMATED [id number] 10*3/uLNormal 150-400UnAdena Pike Medical CenterComment on above:Result Comment: Slide checked, no clumps or clots seenPerformed By: #### [id number] #### [facility] ([facility]) [address] [address]EZM (Bld) [#/Vol]3.29 10*6/uLLow3.80-5.00UnAdena Pike Medical CenterComment on above:Performed By: #### [id number] #### [facility] ([facility]) [address] [address]TQL (Bld) [#/Vol]5.00 10*3/uLNormal4.00-10.60UnAdena Pike Medical CenterComment on above:Performed By: #### [id number] #### [facility] ([facility]) [address] [place] [address]MJTECCHONVSUB METABOLIC PANELon 79-84-0894Jxxyviq [Mass/Vol]3.4 g/dLLow3.5-5.7UnAdena Pike Medical CenterComment on above:Performed By: #### [id number] #### [facility] ([facility]) [address] [place] [address]QGM [Catalytic activity/Vol]65 U/EWvipkv36-720ZagaiaigbxAdena Pike Medical CenterComment on above:Performed By: #### [id number] #### [facility] ([facility]) [address] [place] [address]ZOX [Catalytic activity/Vol]20 U/LNormal7-52UnAdena Pike Medical CenterComment on above:Performed By: #### [id number] #### [facility] ([facility]) [address] [place], [place] [address]Tdzfw gap [Moles/Vol]9 mmol/LNormal7-20UnAdena Pike Medical CenterComment on above:Performed By: #### [id number] #### [facility] ([facility]) [address] [place], [place] [address]CCP [Catalytic activity/Vol]21 U/DPrfdhy76-76DoijoklotsAdena Pike Medical CenterComment on above:Performed By: #### [id number] #### [facility] ([facility]) [address] [place], [place] [address]Zcqyawdjr [Mass/Vol]0.5 mg/dLNormal0.3-1.0UnAdena Pike Medical CenterComment on above:Performed By: #### [id number] #### [facility] ([facility] [address] [place], [place] [address]Vnphsyl [Mass/Vol]8.6 mg/dLNormal8.6-10.3UnAdena Pike Medical CenterComment on above:Performed By: #### [id number] #### [facility] ([facility] [address] [place], [place] [address]Eszimcjw [Moles/Vol]107 mmol/DFmwbsi27-477EripmpyqalAdena Pike Medical CenterComment on above:Performed By: #### [id number] #### [facility] ([facility]) [address] [place], [place] [address]SM1 [Moles/Vol]28 mmol/NLxuucm03-70KwigfuwkrmAdena Pike Medical CenterComment on above:Performed By: #### [id number] #### [facility] ([facility]) [address] [place], [place] [address]Jusuxtzeaf [Mass/Vol]1.06 mg/dLNormal0.60-1.20UnAdena Pike Medical CenterComment on above:Performed By: #### [id number] #### [facility] ([facility]) [address] [place], [place] [address]NDJYUNBJNO FILTRATION RATE ML/MIN/1.73 SQ M.IDEPDIPEZ50.6 mL/min/1.73m*2Normal>60.0UnAdena Pike Medical CenterComment on above: Result Comment: [facility]???s estimated glomerular filtration rate (eGFR) will [...] potential consequences that do not disproportionately affect anyone group of individuals.Performed By: #### [id number] #### [facility] ([facility]) [address] [place], [place] [address]Uielnew [Mass/Vol]99 mg/nPSclqfk53-610ViakphapfbAdena Pike Medical CenterComment on above:Performed By: #### [id number] #### [facility] ([facility]) [address] [place], [place] [address]Ppnlfbqlb [Moles/Vol]4.6 mmol/LNormal3.5-5.1UnAdena Pike Medical CenterComment on above:Performed By: #### [id number] #### [facility] ([facility]) [address] [place], [place] [address]Mhbnuqr [Mass/Vol]5.9 g/dLLow6.0-8.3UnAdena Pike Medical CenterComment on above:Performed By: #### [id number] #### [facility] ([facility]) [address] [place], [place] [address]Uqfndc [Moles/Vol]139 mmol/HIhxqck041-525GilsysbmxpAdena Pike Medical CenterComment on above:Performed By: #### [id number] #### [facility] ([facility]) [address] [place], [place] [address]Kkah nitrogen [Mass/Vol]11 mg/dLNormal7-25UnAdena Pike Medical CenterComment on above:Performed By: #### [id number] #### [facility] ([facility]) [address] [place] [address]DQPB NITROGEN/CREATININE (MASS RATIO) IN SER/PLAS10.4Normal [facility] HospitalComment on above:Performed By: #### [id number] #### [facility] ([facility]) [address] [address]TTVKGIAxw 82-32-1029WGGCVOS Attestation signed by Bashir Heath MD at 05/24/2024 6:07 PM 05/24/24 [...] as well as serial EKGs and troponins Bashir Heath MD, ScM, MSc Cardiac Head Rigger Email: [email or web address] Cardiology Consult Note Reason for Consult: NSTEMI HPI: Shahla Thpaa is a 44 y.o. female with past history remarkable for primary hypertension, peripheral artery disease, preexcitation on EKG who presented to [facility] as a transfer from [facility] where she initially presented complaining of abdominal pain, nausea and vomiting that she relates it started after she ate at a restaurant outside. Initial workup in [facility] showed elevated high-sensitivity troponin of 140 which trended downward during hospital admission to 84. Reported that she was not able to complete a stress test in [facility] and cardiology team were contacted for [...] AGITATION olmesartan-hydrochlorothiazide (BENIcar HCT) 20-12.5 mg tablet 1 tablet, [...] for AGITATION 05/23/2024 olmesar (more content not included)...NormalUnAdena Pike Medical Center HIGH SENSITIVITY TROPONIN Ion 85-90-6721VM TROPONIN I (NG/L)52 ng/LCritically high<15UnAdena Pike Medical CenterComment on above:Performed By: #### [id number] #### [facility] ([facility]) [address] [place], [place] [address]XOiz 34-12-1446FAE&P reviewed. The patient was examined and there are no changes to the H&P. Mrs. Thapa, a 44 year old female patient is scheduled for coronary angiogram for NSTEMI with abnormal stress test (anterior reversible defect and TID).Normal [facility] HospitalLIPASEon 49-48-0168BCCLAN (U/L) IN SER/PLAS39 U/SZtjhyu20-56UzaniatpkfAdena Pike Medical CenterComment on above:Performed By: #### [id number] #### [facility] ([facility]) [address] [place] [address]DHJUKURODhj 13-07-5535Zonvgnnev [Mass/Vol]1.7 mg/dLLow1.9-2.7 [facility] HospitalComment on above:Performed By: #### [id number] #### [facility] ([facility]) [address] [place] [address]XRMBXW DIFFERENTIALon 61-94-2321NMMFEODDF (10*3/UL) IN BLOOD BY CALCULATION0.03 10*3/uLNormal0.00-0.20UnAdena Pike Medical CenterComment on above:Performed By: #### [id number] ####[facility] ([facility])[address] [place] [address]BHGVHWMIH/100 LEUKOCYTES IN BLOOD BY AUTOMATED COUNT0.6 %Normal0.0-1.0UnAdena Pike Medical CenterComment on above: Performed By: #### [id number] ####[facility] ([facility])[address] [place] [address]THPHPDHQVJY (10*3/UL) IN BLOOD BY CALCULATION0.10 10*3/uL Normal0.00-0.50UnAdena Pike Medical CenterComment on above:Performed By: #### [id number] ####[facility] ([facility])[address] [place] [address] EOSINOPHILS/100 LEUKOCYTES IN BLOOD BY AUTOMATED COUNT2.0 %Normal0.0-6.0 [facility] HospitalComment on above:Performed By: #### [id number] ####[facility] ([facility])[address] [place] [address]BNSEPCDM GRANULOCYTES (10*3/UL) IN BLOOD BY CALCULATION0.02 10*3/uLNormal0.00-0.20 [facility] HospitalComment on above:Performed By: #### [id number] ####[facility] ([facility])[address] [place] [address]VPJOQRUP GRANULOCYTES/100 LEUKOCYTES IN BLOOD BY AUTOMATED COUNT0.4 %Normal0.0-1.0 [facility] HospitalComment on above:Performed By: #### [id number] ####[facility] ([facility])[address] [place] [address]KOUSRKRVSBB (10*3/UL) IN BLOOD BY CALCULATION1.07 10*3/uLLow1.20-4.00UnAdena Pike Medical CenterComment on above:Performed By: #### [id number] ####[facility] ([facility])[address] [place] [address]NMATBRZPNOW/100 LEUKOCYTES IN BLOOD BY AUTOMATED COUNT21.4 %Wlydzi59.0-45.0UnAdena Pike Medical CenterComment on above:Performed By: #### [id number] ####[facility] ([facility])[address] [place] [address]SOHGSPIZT (10*3/UL) IN BLOOD BY CALCUATION0.44 10*3/uLNormal 0.10-1.00UnAdena Pike Medical CenterComment on above:Performed By: #### [id number] ####[facility] ([facility])[address] [place] [address] MONOCYTES/100 LEUKOCYTES IN BLOOD BY AUTOMATED COUNT8.8 %Normal5.0-12.0 [facility] HospitalComment on above:Performed By: #### [id number] ####[facility] ([facility])[address] [place] [address]YPQZUHCQGAJ (10*3/UL) IN BLOOD BY CALCULATION3.3 10*3/uLNormal1.6-7.6UnAdena Pike Medical CenterComment on above:Performed By: #### [id number] ####[facility] ([facility])[address] [place] [address]XKMGHICVBTD/100 LEUKOCYTES IN BLOOD BY AUTOMATED COUNT66.8 %Ityssa02.0-72.0UnAdena Pike Medical CenterComment on above:Performed By: #### [id number] ####[facility] ([facility])[address] [place], [place] [address]APDGO QUALITATIVEon 60-35-6139VHD SERUM-QNI/QML-68290020ZavuykwkWzdvedWhciaerntj of [place] Medical CenterComment on above:Performed By: #### [id number] #### [facility] ([facility]) [address] [place], [place] [address]YMVWTDRWOOzh 50-46-4255QICIYTGZO, TOTAL PRESENCE IN URINE NegativeNormalNegativeMiami Valley HospitalComment on above: Performed By: #### [id number] ####[facility] ([facility])[address] [place], [place] [address]Qaviwta (U)ClearNormalClearUnAdena Pike Medical CenterComment on above:Performed By: #### [id number] ####[facility] ([facility])[address] [place], [place] [address]Jmhjr (U)Light-YellowNormalColorless, Yellow, Light-YellowUnAdena Pike Medical CenterComment on above: Performed By: #### [id number] ####[facility] ([facility])[address] [place], [place] [address]JVYLLOX (MG/DL) IN URINENormalNormalNovant Health Forsyth Medical CenterniCleveland Clinic Lutheran HospitalComment on above:Performed By: #### [id number] ####[facility] ([facility])[address] [place], [place] [address]YIUBSLZSJM PRESENCE IN URINENegativeNormalNegKettering Health MiamisburgComment on above: Performed By: #### [id number] ####[facility] ([facility])[address] [place], [place] [address]Wwjkbdy Ql (U)NegativeNormalNegativeMiami Valley HospitalComment on above:Performed By: #### [id number] ####[facility] ([facility])[address] [place], [place] [address]XUPVMXFTE ESTERASE PRESENCE IN URINE BY TEST STRIPModerateAbnormalNegKettering Health MiamisburgComment on above:Performed By: #### [id number] ####[facility] ([facility])[address] [place] [address]EIRQKZK PRESENCE IN URINENegativeNormalNegativeUnAdena Pike Medical CenterComment on above:Performed By: #### [id number] ####[facility] ([facility])[address] [address]lJ (U)7.0 [pH]Normal 5.0-8.0UnAdena Pike Medical CenterComment on above:Performed By: #### [id number] ####[facility] ([facility])[address] [address]Btnsgyv (U) [Mass/Vol]NegativeNormalNegativeUnAdena Pike Medical CenterComment on above:Performed By: #### [id number] ####[facility] ([facility])[address] [place] [address]Blklfccx gravity (U) [Rel density]1.503Fjukxi8.010-1.030 [facility] HospitalComment on above:Performed By: #### [id number] ####[facility] ([facility])[address] [place] [address]NEQYOXPXTPIW (MG/DL) IN URINENormalNormalNormalUniversFlower HospitalComment on above:Performed By: #### [id number] ####[facility] ([facility])[address] [place] [address]ZTXCZLADZB MICROSCOPICon 94-29-6285NUU (#/HPF) IN URINE SEDIMENT0-2NormalNone Seen, 0-2UnAdena Pike Medical CenterComment on above:Performed By: #### [id number] #### [facility] ([facility]) [address] [place] [address]VHEMSQHC EPITHELIAL CELLS (#/LPF) IN URINE SEDIMENTManyAbnormal None Seen, Occasional, FewUnAdena Pike Medical CenterComment on above: Performed By: #### [id number] #### [facility] ([facility]) [address] [place], [place] [address]FBF (LEUKOCYTE) (#/HPF) IN URINE SEDIMENT3-5AbnormalNone Seen, 0-2UnAdena Pike Medical CenterComment on above:Performed By: #### [id number] #### [facility] ([facility]) [address] [place], [place] [address]YXIOU Cepheidon 28-60-5701FQKP-CoV-2 (COVID-19) RNA PITO+probe Ql (Unsp spec)COVID CepheidSelect Medical [facility], AvonLaboratory - Microbiology and Antimicrobial susceptibilityon 40-19-0738HBRN-CoV-2 (COVID-19) RNA PITO+probe Ql (Unsp spec)NegativeSelect Medical [facility] Clinic Rehabilitation Hospital, AvonNo Panel Informationon 62-58-7417SIS Influenza A (PCR)NegativeSelect Medical [facility] Clinic Rehabilitation Hospital, AvonPO Influenza B (PCR)NegativeSelect Medical [facility] Clinic [facility], AvonOffice Visit on 85-15-0135Tjhfiw-up [id number] Shahal Thapa 1980 F Date Provider Department Center 03/15/2024 3848-[address] [facility] Family History Problem Relation Age of Onset Hypertension Mother Cancer Mother Stroke Mother Family Status - Relation Status Age at Mother Level of Service:[address] [place] OFFICE/OUTPATIENT ESTABLISHED LOW MDM 20 [facility]NoSamaritan HospitalAlanine aminotransferase [Enzymatic activity/volume] in Serum or PlasmaOrdered By: Art Pa on 98-02-8975LTT [Catalytic activity/Vol]18 U/L7-52[facility], AvonAlbumin [Mass/volume] in Serum or Plasma by Bromocresol green (BCG) dye binding metho Ordered By: Art Pa on 97-83-8089Zgjsolb BCG dye [Mass/Vol]4.1 g/dL 3.5-5.7FFulton County Health CenterAlkaline phosphatase [Enzymatic activity/volume] in Serum or PlasmaOrdered By: Art Pa on 46-06-7045KJP [Catalytic activity/Vol]93 U/F20-635VdtpttwheSelect Medical [facility] Clinic Rehabilitation Hospital, AvonAmphetamine Screen Ql (U)Ordered By: Art Pa on 70-80-2608Fksvsmgmihqg Ql (U)Negative NegativeSelect Medical [facility] Clinic Rehabilitation Hospital, AvonAspartate aminotransferase [Enzymatic activity/volume] in Serum or PlasmaOrdered By: Art Pa on 88-25-3685YKQ [Catalytic activity/Vol]19 U/W40-22VletxylksSelect Medical [facility] Clinic Rehabilitation Hospital, AvonBacteria [Presence] in Urine by AutomatedOrdered By: Art Pa on 18-67-6319Tsbosmdl Auto Ql (U)Rare [HPF]None SeenSelect Medical Cleveland Clinic Rehabilitation Hospital, AvonBarbiturates [Presence] in Urine by Screen methodOrdered By: Art Pa on 11-08-2023 Barbiturates Screen Ql (U)NegativeNegativeSelect Medical [facility], [place]on Basophils Auto (Bld) [#/Vol]Ordered By: Art Pa on 09-67-6814Dvwmtzhjy (Bld) [#/Vol]0.1 10*3/uL0.0-0.2FFulton County Health CenterBasophils/100 WBC Auto (Bld)Ordered By: Art Pa on 91-06-3568Rbfouyxqz/100 WBC (Bld)0.7 %.[facility], AvonBenzodiazepines Screen Ql (U)Ordered By: Art Pa on 36-39-6143Sebiftwcuxeboms Ql (U)NegativeNegativeSelect Medical [facility] Clinic Rehabilitation Hospital, AvonBenzoylecgonine [Presence] in Urine by Screen method Ordered By: Art Pa on 40-42-3174Crlygrdbnemzien Screen Ql (U)Negative NegativeSelect Medical [facility] Clinic Rehabilitation Hospital, AvonBilirubin Test strip Ql (U)Ordered By: Art Pa on 95-05-9327Oxktlgvaa Ql (U)NegativeNegativeSelect Medical [facility] Clinic Rehabilitation Hospital, AvonBilirubin.total [Mass/volume] in Serum or PlasmaOrdered By: Art Pa on 97-22-5236Vsukngciu [Mass/Vol]0.5 mg/dL0.3-1.0[facility], AvonCalcium [Mass/volume] in Serum or PlasmaOrdered By: Art Pa on 33-98-2310Fwaqmkc [Mass/Vol]9.6 mg/dL8.6-10.3FFulton County Health CenterCannabinoids [Presence] in Urine by Screen methodOrdered By: Art Pa on 01-54-7412Kbettvpmdcon Screen Ql (U)NegativeNegative [facility], AvonComment on above:These are unconfirmed results and should not be used for legal purposes. Drug Cut-Off Concentration: AMPH 1000 ng/mL SANDEEP 200 ng/mL JERSON 200 ng/mL COCM 300 ng/mL OP 300 ng/mL PCP 25 ng/mL THC 20 ng/mLCarbon dioxide, total [Moles/volume] in Serum or PlasmaOrdered By: Art Pa on 02-40-1060YK0 [Moles/Vol]29.1 mmol/L21.0-31.0[facility], AvonChloride [Moles/volume] in Serum or PlasmaOrdered By: Art Pa on 08-98-8912Nngyvvlo [Moles/Vol]101 mmol/W03-902IxhpoafuwSelect Medical Cleveland Clinic Rehabilitation Hospital, AvonCholesterol [Mass/volume] in Serum or PlasmaOrdered By: Geo Loomis on 90-28-9183Euiopmxdvtl [Mass/Vol]162 mg/iH236-276WljugbgbbSelect Medical Cleveland Clinic Rehabilitation Hospital, AvonComment on above:Chol less than 200 mg/dl low riskChol 201-239 mg/dl borderline riskChol 240 mg/dl and greater high riskCholesterol in LDL Calc [Mass/Vol]Ordered By: Geo Loomis on 53-42-4287Fademwmdeut in LDL [Mass/Vol]86 mg/dL0-100[facility], AvonComment on above:LDL ATP III CLASSIFICATIONLDL less than 100 mg/dL OptimalLDL 100-129 mg/dL Near or above ixxfpbkCOQ153-368 mg/dL Borderline highLDL 160-189 mg/dL HighLDL greater than 189 mg/dL Very highCholesterol in VLDL Calc [Mass/Vol]Ordered By: Geo Loomis on 85-43-2108Sucgsiawvnt in VLDL [Mass/Vol]26 mg/dLSelect Medical [facility] Clinic Rehabilitation Hospital, AvonColor Auto (U)Ordered By: Art Pa on 04-48-0255Ilxfc (U) YellowYellowSelect Medical Cleveland Clinic Rehabilitation Hospital, AvonCreatinine [Mass/volume] in Serum or PlasmaOrdered By: Atr Pa on 18-93-3598Yhefnapfma [Mass/Vol]0.91 mg/dL 0.60-1.20[facility], AvonEosinophils Auto (Bld) [#/Vol]Ordered By: Art Pa on 54-26-0634Eduqydpbkhj (Bld) [#/Vol]0.0 10*3/uL0.0-0.45 [facility], AvonEosinophils/100 WBC Auto (Bld)Ordered By: Art Pa on 64-44-7439Ammsqwltcmq/100 WBC (Bld)0.1 %.[facility], AvonEpithelial cells.squamous [#/area] in Urine sediment by Automated countOrdered By: Art Pa on 46-63-9523Ahpgmpbdft cells.squamous Auto (Urine sed) [#/Area]3-4 [HPF]High0-2FFulton County Health CenterErythrocyte distribution width Auto (RBC) [Ratio]Ordered By: Art Pa on 11-08-2023 Erythrocyte distribution width (RBC) [Ratio]15.2 %11.9-15.3FFulton County Health CenterErythrocytes [#/area] in Urine sediment by Automated countOrdered By: Art Pa on 51-48-8658DCR Auto (Urine sed) [#/Area]3-4 [HPF]0-4 [facility], AvonEthanol [Mass/volume] in Serum or PlasmaOrdered By: Art Pa on 08-41-1631Mtyboks [Mass/Vol]mg/dLSelect Medical Cleveland Clinic Rehabilitation Hospital, AvonEthanol [Mass/Vol]TNPSelect Medical Cleveland Clinic Rehabilitation Hospital, AvonComment on above:Test not performedGlobulin Calc (S) [Mass/Vol]Ordered By: Art Pa on 79-88-9478Twuwnyya (S) [Mass/Vol]3.4 g/dLSelect Medical Cleveland Clinic Rehabilitation [facility], [place] Glucose [Mass/volume] in Serum or PlasmaOrdered By: Art Pa on 11-08-2023 Glucose [Mass/Vol]102 mg/sDFpkc93-104WflolyasgSelect Medical Cleveland Clinic Rehabilitation Hospital, AvonComment on above:ADA recommended reference rangeRandom Glucose Reference Range is dependent on time and content of last meal. Glucose of more than 200 mg/dL in a nonstressed, ambulatory subject supports the diagnosisof Diabetes Mellitus. Glucose [Mass/volume] in Urine by Test stripOrdered By: Art Pa on 48-90-6103Uedmrbj Test strip (U) [Mass/Vol]Normal mg/dLNormalSelect Medical Cleveland Clinic Rehabilitation Hospital, AvonHCG ( test) IA.rapid Ql (U)Ordered By: Art Pa on 24-48-6781OAF ( test) Ql (U)NegativeSelect Medical Cleveland Clinic Rehabilitation [facility], [place] Hematocrit Auto (Bld) [Volume fraction]Ordered By: Art Pa on 11-08-2023 Hematocrit (Bld) [Volume fraction]41.1 %34.0-46.4FFulton County Health CenterHemoglobin Test strip Ql (U)Ordered By: Art Pa on 11-08-2023 Hemoglobin Ql (U)1+HighNegativeSelect Medical [facility] Clinic Rehabilitation Hospital, AvonHemoglobin [Mass/volume] in BloodOrdered By: Art Pa on 88-67-7144Aavnoaeryx (Bld) [Mass/Vol]13.6 g/dL11.8-15.4FFulton County Health CenterHyaline casts [#/area] in Urine sediment by Automated countOrdered By: Art Pa on 68-85-2300Trvnedk casts Auto (Urine sed) [#/Area]None [LPF]0-8[facility], AvonKetones Test strip Ql (U)Ordered By: Art Pa on 11-08-2023 Ketones Ql (U)NegativeNegativeSelect Medical [facility] Clinic Rehabilitation Hospital, AvonLeukocyte esterase [Presence] in Urine by Test stripOrdered By: Art Pa on 60-99-3187Woexpcdsg esterase Test strip Ql (U)3+HighNegativeSelect Medical [facility] Clinic Rehabilitation Hospital, AvonLeukocytes [#/area] in Urine sediment by Automated countOrdered By: Art Pa on 63-20-4406HAQ Auto (Urine sed) [#/Area]5-9 [HPF]High0-4 [facility], AvonLeukocytes [#/volume] corrected for nucleated erythrocytes in Blood by Automated counOrdered By: Art Pa on 11-08-2023 WBC corrected for nucl RBC Auto (Bld) [#/Vol]11.4 10*3/uL3.8-11.6FFulton County Health CenterLymphocytes Auto (Bld) [#/Vol]Ordered By: Art Pa on 83-41-2744Cemntoolclz (Bld) [#/Vol]2.5 10*3/uL1.00-4.8[facility], AvonLymphocytes/100 WBC Auto (Bld)Ordered By: Art Pa on 54-68-6004Hslcsvtlihe/100 WBC (Bld)22.0 %.[facility] HospitalH Auto (RBC) [Entitic mass]Ordered By: Art Pa on 74-61-0941RUB (RBC) [Entitic mass]29.3 pg24.7-34.3FThe University of Toledo Medical CenterHC Auto (RBC) [Mass/Vol]Ordered By: Art Pa on 26-24-7352RWJW (RBC) [Mass/Vol]33.2 g/dL 32.0-35.0[facility] AvonMCV Auto (RBC) [Entitic vol]Ordered By: Art Pa on 35-18-6618SCJ (RBC) [Entitic vol]88.1 sO88-547UvktsjaudSelect Medical [facility], AvonMonocyte distribution width [Entitic volume] in Blood by AutomatedOrdered By: Art Pa on 23-80-5019Drsahewa distribution width Auto (Bld) [Entitic vol]17.72 %0.00-20.00[facility] [place] Monocytes Auto (Bld) [#/Vol]Ordered By: Art Pa on 96-66-0572Ekjexvkou (Bld) [#/Vol]0.9 10*3/uLHigh0.0-0.8[facility] Monocytes/100 WBC Auto (Bld)Ordered By: Art Pa on 11-08-2023 Monocytes/100 WBC (Bld)7.5 %.[facility] [place]onMucus [Presence] in Urine by AutomatedOrdered By: Art Pa on 34-63-0628Gltkg Auto Ql (U) Rare [LPF][facility] [place]onNeutrophils Auto (Bld) [#/Vol]Ordered By: Art Pa on 48-07-2556Nfxspxygehi (Bld) [#/Vol]7.9 10*3/uLHigh1.8-7.7 [facility] [place]onNeutrophils/100 WBC Auto (Bld)Ordered By: Art Pa on 54-72-7388Whqugwljrmc/100 WBC (Bld)69.7 %.[facility] AvonNitrite Test strip Ql (U)Ordered By: Art Pa on 11-08-2023 Nitrite Ql (U)NegativeNegativeSelect Medical [facility], [place]onNo Panel InformationOrdered By: Art Pa on 39-99-2881Gmirlkihc GFR (CKD-EPI)> 60.0 mL/MinSelect Medical [facility] Clinic [facility], AvonPharmacy Creatinine Clearance (Chem97.34 [facility] [place]onNucleated erythrocytes [Presence] in Blood by Automated countOrdered By: Art Pa on 70-63-6231Muyeodvuh RBC Auto Ql (Bld)0.0 /100{WBC}0-0.5FFulton County Health CenterOpiates [Presence] in Urine by Screen methodOrdered By: Art Pa on 74-75-9173Kbgartb Screen Ql (U)NegativeNegativeSelect Medical [facility], AvonPhencyclidine Screen Ql (U) Ordered By: Art Pa on 69-61-1985Qxblrzxnrqohd Ql (U)NegativeNegative [facility], [place]onPlatelet mean volume Auto (Bld) [Entitic vol] Ordered By: Art Pa on 51-54-7578Ernnijtr mean volume (Bld) [Entitic vol] 7.9 fL6.3-10.7FFulton County Health CenterPlatelets Auto (Bld) [#/Vol] Ordered By: Art Pa on 38-64-3218Edoafrsmy (Bld) [#/Vol]286 10*3/uL 150-450[facility] [place]onPotassium [Moles/volume] in Serum or PlasmaOrdered By: Art Pa on 88-58-9574Kxqdnhlga [Moles/Vol]4.1 mmol/L 3.5-5.1FFulton County Health CenterProtein Test strip (U) [Mass/Vol]Ordered By: Art Pa on 63-21-1967Bggxeka (U) [Mass/Vol]NegativeNegativeSelect Medical [facility], [place]onProtein [Mass/volume] in Serum or PlasmaOrdered By: Atr Pa on 09-21-8711Urhzhpo [Mass/Vol]7.5 g/dL6.4-8.9[facility] [place]onRBC Auto (Bld) [#/Vol]Ordered By: Art Pa on 81-85-5314UTO (Bld) [#/Vol]4.66 10*6/uL3.60-5.00[facility] Hospitalerum or plasma albumin/globulin mass ratioOrdered By: Art Pa on 11-08-2023 Albumin/Globulin [Mass ratio]1.2 {ratio}[facility]. Francis Hospitalerum or plasma anion gap determinationOrdered By: Art Pa on 03-83-6418Varhd gap [Moles/Vol]10.0 mmol/L6.0-15.0[facility]. [facility] Hospitalerum or plasma high density lipoprotein (HDL) cholesterol measurementOrdered By: Geo Loomis on 87-47-5299Vztxbfymegy in HDL [Mass/Vol]49 mg/rB25-22XjowiwanlSelect Medical [facility] Clinic [facility] Hospital, AvonComment on above:HDL CHOL ATP-III CLASSIFICATION Cardiovascular RiskHDL > or equal to 60 mg/dL LOWHDL < 40 mg/dL HIGHSerum or plasma total cholesterol/high density lipoprotein (HDL) cholesterol mass rat Ordered By: Geo Loomis on 75-93-3798Qpjnpmszzkk.total/Cholesterol in HDL [Mass ratio]3.3 {ratio}<5.0St. Francis Hospitalodium [Moles/volume] in Serum or PlasmaOrdered By: Art Pa on 75-96-2934Zwxhgt [Moles/Vol]136 mmol/V083-410RnmntqcovSt. Francis Hospitalpecific gravity Test strip (U) [Rel density]Ordered By: Art Pa on 25-00-2258Cdsysqsa gravity (U) [Rel density]1.0181.001-1.030[facility] [place] Thyrotropin [Units/volume] in Serum or PlasmaOrdered By: Geo Loomis on 00-85-0910LRF Qn3.00 m[IU]/L0.45-5.33[facility] [place] Triglyceride [Mass/volume] in Serum or PlasmaOrdered By: Geo Loomis on 69-16-0127Cqbrgdgojsop [Mass/Vol]133 mg/dL0-149[facility] [place] Comment on above:TRIG ATP III CLASSIFICATIONTRIG less than 150 mg/dL NormalTRIG 150-199 mg/dL Borderline highTRIG 200-500 mg/dL High TRIG greater than 500 mg/dL Very highStandard traceable to the Center for Disease Conrtrol and Prevention (CDC) test method.Urea nitrogen [Mass/volume] in Serum or PlasmaOrdered By: Art Pa on 66-98-0096Yrgw nitrogen [Mass/Vol]13 mg/dL7-25[facility] [place]onUrine appearanceOrdered By: Art Pa on 11-08-2023 Appearance (U)ClearClearFFulton County Health CenterUrine culture routine Ordered By: Art Pa on 05-47-2414Nebwqwik identified Cx Nom (U)2 Days [facility], AvonUrobilinogen Test strip (U) [Mass/Vol]Ordered By: Art Pa on 60-90-2016Dcydiqgtxult (U) [Mass/Vol]Normal mg/dLNormal [facility], [place]onVitamin D+Metabolites [Mass/volume] in Serum or PlasmaOrdered By: Geo Loomis on 48-21-8526Elfuwpv D+Metabolites [Mass/Vol] 49.5 ng/vI81-513IapyirsxzSelect Medical [facility] Clinic [facility], AvonComment on above:VITAMIN D STATUS 25(OH)VITAMIN D RANGE (ng/mL) Deficient <20 Insufficient 20 to <49Xguqbmjdmm58 to 100Reference: Braeden MF,Marsha NC, Ez MULTANI, et al. Evaluation,treatment, and prevention of vitamin D deficiency; an Endocrine Society clinical practice guideline. JCEM. 2010; 96(7):1911-30.WBC Auto (Bld) [#/Vol]Ordered By: Art Pa on 20-48-1811ZJB (Bld) [#/Vol]11.4 10*3/uL3.8-11.6FFulton County Health CenterpH Test strip (U)Ordered By: Art Pa on 70-76-0285pO (U)5.0 [pH]5.0-9.0St. Francis HospitalEGMENTAL BLOOD PRESSUREon 07-09-5[address] [address] Cardiology Report Signed Patient: SHAHLA THAPA MR#: [id number] : 1980 Acct:[id number] Age/Sex: 43 / F ADM Date: 05/31/23 Loc: CARD Attending Dr: Jus Webster M.D. Ordering Physician: Jus Webster M.D. Date of Service: 05/31/23 Procedure(s): CA segmental UE or LE BISI Accession Number(s): [id number] cc: JOSETTE MANDEL ; Jus Webster M.D. [facility] Test Date: 2023-05-31 Pat Name: SHAHLA THAPA Department: Room: - Gender: Female Gypsum Calciner: Luisa Valverde : 1980 Requested By: 1894 Order Number: [id number] Reading MD: QUINTON NAVA Interpretive Statements Monophasic doppler waveforms in [...] Electronically Signed On 05-31-2023 23:12:54 EDT by QUINTON NAVA Dictated By: Quinton Nava D.O. Signed By: 05/31/23231205/31/232312 DD/ 1357 TD/TT: Newborn Hearing Screener:TBHRadiology, Radiologist, - 06/01/2023 [place] [address] Cardiology Report Signed Patient: SHAHLA THAPA MR#: [id number] : 1980 Acct:[id number] Age/Sex: 43 / F ADM Date: 05/31/23 Loc: CARD Attending Dr: Jus Webster M.D. Ordering Physician: Jus Webster M.D. Date of Service: 05/31/23 Procedure(s): CA segmental UE or LE BISI Accession Number(s): [id number] cc: JOSETTE MANDEL ; Jus Webster M.D. [facility] Test Date: 2023-05-31 Pat Name: SHAHLA THAPA Department: Room: - Gender: Female Gypsum Calciner: Luisa Valverde : 1980 Requested By: 1892 Order Number: [id number] Reading MD: QUINTON NAVA Interpretive Statements Monophasic doppler waveforms in [...] Electronically Signed On 05-31-2023 23:12:54 EDT by QUINTON NAVA Dictated By: Quinton Nava D.O. Signed By: 05/31/23231205/31/232312 DD/ 56 TD/TT: Newborn Hearing Screener: [facility] HealthcareRadiology Study observation (narrative)[facility] HealthcareSEENTAL BLOOD PRESSUREOrdered By: Radiologist Radiology on 80-85-3629[facility] Work Phone: alanine aminotransferase [Enzymatic activity/volume] in Serum or PlasmaOrdered By: Antolin Abarca on 69-45-7184QKH [Catalytic activity/Vol]15 U/L7-52[facility], [place]onAlbumin [Mass/volume] in Serum or Plasma by Bromocresol green (BCG) dye binding methoOrdered By: Antolin Abarca on 36-80-3857Ecjgezt BCG dye [Mass/Vol]4.0 g/dL3.5-5.7FFulton County Health CenterAlkaline phosphatase [Enzymatic activity/volume] in Serum or PlasmaOrdered By: Antolin Abarca on 90-29-4842XME [Catalytic activity/Vol]61 U/S65-664LrdehvkiySelect Medical Cleveland Clinic Rehabilitation Hospital, AvonAmphetamine Screen Ql (U)Ordered By: Antolin Abarca on 61-48-5084Zwowhjpcamhb Ql (U)NegativeNegativeSelect Medical [facility] Clinic [facility], [place]onAspartate aminotransferase [Enzymatic activity/volume] in Serum or PlasmaOrdered By: Antolin Abarca on 60-82-3683REW [Catalytic activity/Vol]19 U/L 13-39[facility], AvonAutomated epithelial cells count in urine sediment (number/area)Ordered By: Antolin Abarca on 12-29-3274Ggqhglxtdh cells Auto (Urine sed) [#/Area]Rare [HPF]0-2FFulton County Health CenterAutomated erythrocytes count in urine sediment (number/area)Ordered By: Antolin Abarca on 90-30-7243ILB Auto (Urine sed) [#/Area]1-2 [HPF]0-4FFulton County Health CenterAutomated leukocytes count in urine sediment (number/area)Ordered By: Antolin Abarca on 86-91-1996XSR Auto (Urine sed) [#/Area]1-2 [HPF]0-4FFulton County Health CenterAutomated urine hyaline casts count (number/volume) Ordered By: Antolin Abarca on 23-52-0782Yzpocrk casts Auto (U) [#/Vol]Rare [LPF] 0-1FFulton County Health CenterBarbiturates [Presence] in Urine by Screen methodOrdered By: Antolin Abarca on 21-79-4864Ydltwnwqfesc Screen Ql (U)Negative NegativeSelect Medical [facility], [place]onBasophils Auto (Bld) [#/Vol]Ordered By: Antolin Abarca on 04-02-8213Gwsyofnon (Bld) [#/Vol]0.0 10*3/uL0.0-0.2FFulton County Health CenterBasophils/100 WBC Auto (Bld)Ordered By: Antolin Abarca on 78-14-9046Lkbdsljes/100 WBC (Bld)0.4 %.[facility] [place] Benzodiazepines Screen Ql (U)Ordered By: Antolin Abarca on 05-24-2022 Benzodiazepines Ql (U)NegativeNegativeSelect Medical [facility] Clinic [facility], [place] Benzoylecgonine [Presence] in Urine by Screen methodOrdered By: Antolin Abarca on 34-37-1918Amdagjfdmbfdaro Screen Ql (U)NegativeNegativeSelect Medical [facility] Clinic [facility], AvonBilirubin Test strip Ql (U)Ordered By: Antolin Abarca on 05-24-2022 Bilirubin Ql (U)NegativeNegativeSelect Medical [facility] Clinic [facility], AvonBilirubin.total [Mass/volume] in Serum or PlasmaOrdered By: Antolin Abarca on 05-24-2022 Bilirubin [Mass/Vol]0.3 mg/dL0.3-1.0[facility], [place]onCOVID-19 SOFIAOrdered By: Antolin Abarca on 35-50-1312QDMS-CoV+SARS-CoV-2 (COVID-19) Ag IA.rapid Ql (Resp)NegativeNegativeSelect Medical [facility] Clinic [facility] Hospital, AvonComment on above:This is a duplicate Rayna SARS Antigen (SKYLA) result to be used for statistical tracking purpose only.Calcium [Mass/volume] in Serum or Plasma Ordered By: Antolin Abarca on 20-44-5452Ppgnxga [Mass/Vol]9.3 mg/dL8.6-10.3 [facility], [place]onCannabinoids [Presence] in Urine by Screen methodOrdered By: Antolin Abarca on 20-58-9252Urltsqisnamx Screen Ql (U)Negative NegativeSelect Medical [facility] Clinic Rehabilitation Hospital, AvonComment on above:These are unconfirmed results and should not be used for legal purposes. Drug Cut-Off Concentration: AMPH 1000 ng/mL SANDEEP 200 ng/mL JERSON 200 ng/mL COCM 300 ng/mL OP 300 ng/mL PCP 25 ng/mL THC 20 ng/mLCarbon dioxide, total [Moles/volume] in Serum or Plasma Ordered By: Antolin Abarca on 24-53-5260KB3 [Moles/Vol]20.9 mmol/L21.0-31.0 [facility] [place]onChloride [Moles/volume] in Serum or Plasma Ordered By: Antolin Abarca on 10-00-8665Hxiiwntb [Moles/Vol]108 mmol/L98-107 [facility], [place]onColor Auto (U)Ordered By: Antolin Abarca on 47-10-2707Rzuva (U)YellowYellowSelect Medical [facility] Clinic Rehabilitation [facility], [place]onCreatinine [Mass/volume] in Serum or PlasmaOrdered By: Antolin Abarca on 05-24-2022 Creatinine [Mass/Vol]0.79 mg/dL0.60-1.20[facility] [place] Eosinophils Auto (Bld) [#/Vol]Ordered By: Antolin Abarca on 21-46-4229Krntaqthkko (Bld) [#/Vol]0.3 10*3/uL0.0-0.45[facility] Eosinophils/100 WBC Auto (Bld)Ordered By: Antolin Abarca on 05-24-2022 Eosinophils/100 WBC (Bld)4.2 %.[facility], [place]onErythrocyte distribution width Auto (RBC) [Ratio]Ordered By: Antolin Abarca on 05-24-2022 Erythrocyte distribution width (RBC) [Ratio]15.6 %11.9-15.3FFulton County Health CenterEthanol [Mass/volume] in Serum or PlasmaOrdered By: Antolin Abarca on 66-55-2469Yuarodv [Mass/Vol]163 mg/dLSelect Medical Cleveland Clinic Rehabilitation Hospital, AvonEthanol [Mass/Vol]0.163 %[facility], [place]onGlobulin Calc (S) [Mass/Vol] Ordered By: Antolin Abarca on 26-74-0565Werxovln (S) [Mass/Vol]2.8 g/dLSelect Medical Cleveland Clinic Rehabilitation Hospital, [place]onGlucose [Mass/volume] in Serum or PlasmaOrdered By: Antolin Abarca on 80-93-4801Wpxvmzh [Mass/Vol]83 mg/hT29-130IsxakewheSelect Medical [facility] Clinic Rehabilitation Hospital, AvonComment on above:ADA recommended reference rangeRandom Glucose Reference Range is dependent on time and content of last meal. Glucose of more than 200 mg/dL in a nonstressed, ambulatory subject supports the diagnosisof Diabetes Mellitus.HCG ( test) IA.rapid Ql (U)Ordered By: Antolin Abarca on 16-83-3811IJB ( test) Ql (U)NegativeSelect Medical [facility] Clinic [facility], [place] Hematocrit Auto (Bld) [Volume fraction]Ordered By: Antolin Abarca on 05-24-2022 Hematocrit (Bld) [Volume fraction]40.1 %34.0-46.4FFulton County Health CenterHemoglobin [Mass/volume] in BloodOrdered By: Antolin Abarca on 05-24-2022 Hemoglobin (Bld) [Mass/Vol]13.2 g/dL11.8-15.4FFulton County Health Center Ketones Auto test strip (U) [Mass/Vol]Ordered By: Antolin Abarca on 05-24-2022 Ketones (U) [Mass/Vol]NegativeNegativeSelect Medical [facility] [place] Laboratory - Chemistry and Chemistry - challengeOrdered By: Antolin Abarca on 58-41-7120MQZ/1.73 sq M.predicted MDRD (S/P/Bld) [Vol rate/Area]mL/min/{1.73_m2} [facility], AvonLeukocytes [#/volume] corrected for nucleated erythrocytes in Blood by Automated counOrdered By: Antolin Abarca on 03-21-2023 WBC corrected for nucl RBC Auto (Bld) [#/Vol]7.0 10*3/uL3.8-11.6FFulton County Health CenterLymphocytes Auto (Bld) [#/Vol]Ordered By: Antolin Abarca on 74-31-5021Uxdzmfkaozu (Bld) [#/Vol]2.1 10*3/uL1.00-4.8[facility], AvonLymphocytes/100 WBC Auto (Bld)Ordered By: Antolin Abarca on 72-49-5215Idgjefjkvpo/100 WBC (Bld)29.2 %.[facility] Auto (RBC) [Entitic mass]Ordered By: Antolin Abarca on 00-84-7150WFM (RBC) [Entitic mass]29.2 pg24.7-34.3FThe University of Toledo Medical CenterHC Auto (RBC) [Mass/Vol]Ordered By: Antolin Abarca on 70-18-5511OEGU (RBC) [Mass/Vol]33.0 g/dL 32.0-35.0[facility] AvonMCV Auto (RBC) [Entitic vol]Ordered By: Antolin Abarca on 42-19-3725LED (RBC) [Entitic vol]88.6 uI44-717WtqzgpkuySelect Medical Cleveland Clinic Rehabilitation Hospital, AvonMonocyte distribution width [Entitic volume] in Blood by AutomatedOrdered By: Antolin Abarca on 29-89-9512Zinfxcqs distribution width Auto (Bld) [Entitic vol]17.73 %0.00-20.00[facility], AvonMonocytes Auto (Bld) [#/Vol]Ordered By: Antolin Abarca on 54-77-3096Iwfsqnylb (Bld) [#/Vol] 0.6 10*3/uL0.0-0.8[facility], [place]onMonocytes/100 WBC Auto (Bld) Ordered By: Antolin Abarca on 31-42-0797Eiqeivote/100 WBC (Bld)8.2 %.[facility], AvonNeutrophils Auto (Bld) [#/Vol]Ordered By: Antolin Abarca on 03-34-7918Dgscurcejme (Bld) [#/Vol]4.1 10*3/uL1.8-7.7FFulton County Health CenterNeutrophils/100 WBC Auto (Bld)Ordered By: Antolin Abarca on 86-54-2218Nyuwwjfsjvg/100 WBC (Bld)58.0 %.[facility] [place] Nitrite Test strip Ql (U)Ordered By: Antolin Abarca on 66-33-2952Pjncnkz Ql (U) NegativeNegativeSelect Medical Cleveland Clinic [facility], AvonNo Panel InformationOrdered By: Antolin Abarca on 41-75-7933Zjxgzeon Creatinine Clearance (Pwty835.39St. [facility] HospitalARS Antigen (LFIA)[facility] [place] Nucleated erythrocytes [Presence] in Blood by Automated countOrdered By: Antolin Abarca on 67-54-5292Lxwzlnrqt RBC Auto Ql (Bld)0.0 /100{WBC}0-0.5FFulton County Health CenterOpiates [Presence] in Urine by Screen methodOrdered By: Antolin Abarca on 40-37-7712Myymkgs Screen Ql (U)NegativeNegSouthern Ohio Medical CenterPhencyclidine Screen Ql (U)Ordered By: Antolin Abarca on 59-54-5988Gcjaudxzuuwpc Ql (U)NegativeNegSouthern Ohio Medical Center Platelet mean volume Auto (Bld) [Entitic vol]Ordered By: Antolin Abarca on 67-39-6721Mxgtfaqu mean volume (Bld) [Entitic vol]7.3 fL6.3-10.7FFulton County Health CenterPlatelets Auto (Bld) [#/Vol]Ordered By: Antolin Abarca on 71-62-3351Kjztpcprb (Bld) [#/Vol]285 10*3/gG530-457TzqlgttkaSelect Medical Cleveland Clinic Rehabilitation Hospital, AvonPotassium [Moles/volume] in Serum or PlasmaOrdered By: Antolin Abarca on 75-62-0029Dbgimeczi [Moles/Vol]4.4 mmol/L3.5-5.1FFulton County Health CenterProtein Auto test strip (U) [Mass/Vol]Ordered By: Antolin Abarca on 55-50-7959Giqanxl (U) [Mass/Vol]NegativeNegativeSelect Medical [facility] Clinic [facility], AvonProtein [Mass/volume] in Serum or PlasmaOrdered By: Antolin Abarca on 77-47-2934Xikdwpl [Mass/Vol]6.8 g/dL6.4-8.9[facility], AvonRBC Auto (Bld) [#/Vol]Ordered By: Antolin Abarca on 13-52-6192PCV (Bld) [#/Vol]4.53 10*6/uL3.60-5.00St. [facility] Hospitalerum or plasma albumin/globulin mass ratioOrdered By: Antolin Abarca on 05-24-2022 Albumin/Globulin [Mass ratio]1.4 {ratio}[facility] Hospitalerum or plasma anion gap determinationOrdered By: Antolin Abarca on 25-99-2088Arvqv gap [Moles/Vol]13.5 mmol/L6.0-15.0St. Francis Hospitalodium [Moles/volume] in Serum or PlasmaOrdered By: Antolin Abarca on 76-93-0513Mnblec [Moles/Vol]138 mmol/Q904-650SnhqlayqoSt. Francis Hospitalpecific gravity Auto test strip (U) [Rel density]Ordered By: Antolin Abarca on 93-96-9227Eqcvzcte gravity (U) [Rel density]1.0001.001-1.030[facility], AvonUrea nitrogen [Mass/volume] in Serum or PlasmaOrdered By: Antolin Abarca on 05-24-2022 Urea nitrogen [Mass/Vol]8 mg/dL7-25[facility], AvonUrine bacteria detection by automated methodOrdered By: Antolin Abarca on 05-24-2022 Bacteria Auto Ql (U)RareNone SeenSelect Medical Cleveland Clinic Rehabilitation Hospital, AvonUrine clarity by refractometry automatedOrdered By: Antolin Abarca on 05-26-4844Gfvndqu Refractometry automated (U)ClearCleSalem City HospitalUrine glucose measurement by automated test strip (mass/volume)Ordered By: Antolin Abarca on 55-15-6091Qbviofw Auto test strip (U) [Mass/Vol]Normal mg/dLNormal [facility] AvonUrine hemoglobin detection by automated test stripOrdered By: Antolin Abarca on 65-81-1688Mcpskpxtnp Auto test strip Ql (U)2+ NegativeSelect Medical Cleveland Clinic Rehabilitation Hospital, AvonUrine leukocyte esterase detection by automated test stripOrdered By: Antolin Abarca on 47-34-2792Adlbdnctb esterase Auto test strip Ql (U)2+NegativeSelect Medical Cleveland Clinic Rehabilitation Hospital, AvonUrobilinogen Auto test strip (U) [Mass/Vol]Ordered By: Antolin Abraca on 05-24-2022 Urobilinogen (U) [Mass/Vol]Normal mg/dLNormalSelect Medical [facility] [place] WBC Auto (Bld) [#/Vol]Ordered By: Antolin Abarca on 85-28-0943GSR (Bld) [#/Vol] 7.0 10*3/uL3.8-11.6FFulton County Health CenterpH Auto test strip (U) Ordered By: Antolin Abarca on 66-61-6099oT (U)6.0 [pH]5.0-9.0[facility] AvonCholesterol [Mass/volume] in Serum or PlasmaOrdered By: Geo Loomis on 36-48-6131Lumlelcqhhs [Mass/Vol]154 mg/fH088-826BbgqtfctaSelect Medical Cleveland Clinic Rehabilitation Hospital, AvonComment on above:Chol less than 200 mg/dl low riskChol 201-239 mg/dl borderline riskChol 240 mg/dl and greater high riskCholesterol in LDL Calc [Mass/Vol]Ordered By: Geo Loomis on 99-24-7799Jtpkdqkeiha in LDL [Mass/Vol] 76 mg/dL0-100[facility], AvonComment on above:LDL ATP III CLASSIFICATIONLDL less than 100 mg/dL OptimalLDL 100-129 mg/dL Near or above yaxmozqICE217-718 mg/dL Borderline highLDL 160-189 mg/dL HighLDL greater than 189 mg/dL Very highCholesterol in VLDL Calc [Mass/Vol]Ordered By: Geo Loomis on 84-77-6875Bosawxsaobb in VLDL [Mass/Vol]24 mg/dLSt. Francis Hospitalerum or plasma high density lipoprotein (HDL) cholesterol measurement Ordered By: Geo Loomis on 57-57-6237Ummlxtsryvo in HDL [Mass/Vol]54 mg/dL 35-85[facility], AvonComment on above:HDL CHOL ATP-III CLASSIFICATION Cardiovascular RiskHDL > or equal to 60 mg/dL LOWHDL < 40 mg/dL HIGHSerum or plasma total cholesterol/high density lipoprotein (HDL) cholesterol mass ratOrdered By: Geo Loomis on 80-32-6091Tvownemvrmn.total/Cholesterol in HDL [Mass ratio]2.9 {ratio}<5.0[facility], AvonThyrotropin [Units/volume] in Serum or PlasmaOrdered By: Geo Loomis on 48-24-0281FID Qn 1.87 m[IU]/L0.45-5.33[facility], AvonTriglyceride [Mass/volume] in Serum or PlasmaOrdered By: Geo Loomis on 47-88-2939Ugjyfqpjpzrz [Mass/Vol]122 mg/dL0-149[facility], AvonComment on above:TRIG ATP III CLASSIFICATIONTRIG less than 150 mg/dL NormalTRIG 150-199 mg/dL Borderline highTRIG 200-500 mg/dL High TRIG greater than 500 mg/dL Very highStandard traceable to the Center for Disease Conrtrol and Prevention (CDC) test method.Vitamin D+Metabolites [Mass/volume] in Serum or PlasmaOrdered By: Geo Loomis on 09-43-9745Ozakbuo D+Metabolites [Mass/Vol]22.0 ng/pG56-316 [facility], AvonComment on above:VITAMIN D STATUS 25(OH)VITAMIN D RANGE (ng/mL) Deficient <20 Insufficient 20 to <49Eixmzylhnx09 to 100Reference: Braeden MF,Marsha PRIEST, Ez MULTANI, et al. Evaluation,treatment, and prevention of vitamin D deficiency; an Endocrine Society clinical practice guideline. JCEM. 2010; 96(7):1911-30.Alanine aminotransferase [Enzymatic activity/volume] in Serum or PlasmaOrdered By: Antolin Abarca on 38-00-3578QQG [Catalytic activity/Vol]17 U/L7-52[facility], AvonAlbumin [Mass/volume] in Serum or Plasma by Bromocresol green (BCG) dye binding methoOrdered By: Antolin Abarca on 41-49-3453Vjnujgb BCG dye [Mass/Vol]4.0 g/dL3.5-5.7FFulton County Health CenterAlkaline phosphatase [Enzymatic activity/volume] in Serum or PlasmaOrdered By: Antolin Abarca on 70-84-6520CMK [Catalytic activity/Vol]63 U/Y09-306VpcwhfzskSelect Medical Cleveland Clinic Rehabilitation [facility], AvonAmphetamine Screen Ql (U)Ordered By: Antolin Abarca on 05-10-2022 Amphetamines Ql (U)NegativeNegativeSelect Medical Cleveland Clinic Rehabilitation [facility], AvonAspartate aminotransferase [Enzymatic activity/volume] in Serum or PlasmaOrdered By: Antolin Abarca on 57-68-8459USW [Catalytic activity/Vol]17 U/Y91-89AvaiatxemSelect Medical Cleveland Clinic [facility], AvonAutomated erythrocytes count in urine sediment (number/area) Ordered By: Antolin Abarca on 94-04-5128GFA Auto (Urine sed) [#/Area]20-49 [HPF] 0-4FFulton County Health CenterAutomated leukocytes count in urine sediment (number/area)Ordered By: Antolin Abarca on 03-61-1130UKJ Auto (Urine sed) [#/Area]20-49 [HPF]0-4FFulton County Health CenterAutomated urine hyaline casts count (number/volume)Ordered By: Antolin Abarca on 31-31-4419Zapuvif casts Auto (U) [#/Vol]None seen [LPF]0-1FFulton County Health CenterBarbiturates [Presence] in Urine by Screen methodOrdered By: Antolin Abarca on 05-10-2022 Barbiturates Screen Ql (U)NegativeNegSouthern [facility] Medical Center Basophils Auto (Bld) [#/Vol]Ordered By: Antolin Abarca on 76-66-4279Xxgjjttrz (Bld) [#/Vol]0.1 10*3/uL0.0-0.2FFulton County Health CenterBasophils/100 WBC Auto (Bld)Ordered By: Antolin Abarca on 70-21-9635Vjreayhsp/100 WBC (Bld)0.8 %.[facility], AvonBenzodiazepines Screen Ql (U)Ordered By: Antolin Abarca on 17-45-7668Hjmhqjbiomorcsk Ql (U)NegativeNegSouthern Ohio Medical CenterBenzoylecgonine [Presence] in Urine by Screen methodOrdered By: Antolin Abarca on 85-20-7743Tmdrzixdqzqauxc Screen Ql (U)NegativeNegative [facility] AvonBilirubin Test strip Ql (U)Ordered By: Antolin Abarca on 85-63-4317Rahnbgvpi Ql (U)NegativeNegativeSelect Medical [facility], AvonBilirubin.total [Mass/volume] in Serum or PlasmaOrdered By: Antolin Abarca on 52-57-4136Yvbzymxbx [Mass/Vol]0.9 mg/dL0.3-1.0[facility] AvonCalcium [Mass/volume] in Serum or PlasmaOrdered By: Antolin Abarca on 20-05-5762Agujfcn [Mass/Vol]9.5 mg/dL8.6-10.3FFulton County Health Center Cannabinoids [Presence] in Urine by Screen methodOrdered By: Antolin Abarca on 37-91-9685Noocynimxvla Screen Ql (U)NegativeNegativeSelect Medical [facility], AvonComment on above:These are unconfirmed results and should not be used for legal purposes. Drug Cut-Off Concentration: AMPH 1000 ng/mL SANDEEP 200 ng/mL JERSON 200 ng/mL COCM 300 ng/mL OP 300 ng/mL PCP 25 ng/mL THC 20 ng/mLCarbon dioxide, total [Moles/volume] in Serum or PlasmaOrdered By: Antolin Abarca on 05-10-2022 CO2 [Moles/Vol]28.1 mmol/L21.0-31.0[facility], AvonCasts typing in urine sediment by light microscopyOrdered By: Antolin Abarca on 05-10-2022 Casts LM Nom (Urine sed)None seen [LPF]None SeenSelect Medical [facility] Clinic [facility], AvonChloride [Moles/volume] in Serum or PlasmaOrdered By: Antolin Abarca on 82-06-0722Ukzyxtkp [Moles/Vol]103 mmol/D27-693FtiluidgmSelect Medical [facility] [place] Color Auto (U)Ordered By: Antolin Abarca on 13-88-3365Sfxbv (U)Dark yellowYellow [facility], AvonCreatinine [Mass/volume] in Serum or Plasma Ordered By: Antolin Abarca on 29-06-8635Znxgtsbqko [Mass/Vol]0.81 mg/dL0.60-1.20 [facility], AvonEosinophils Auto (Bld) [#/Vol]Ordered By: Antolin Abarca on 68-00-3683Jjlkvmygkri (Bld) [#/Vol]0.2 10*3/uL0.0-0.45[facility], AvonEosinophils/100 WBC Auto (Bld)Ordered By: Antolin Abarca on 09-73-9662Zpsimnveibk/100 WBC (Bld)1.9 %.[facility] [place] Erythrocyte distribution width Auto (RBC) [Ratio]Ordered By: Antolin Abarca on 52-40-8204Aqwrfndqlnx distribution width (RBC) [Ratio]15.1 %11.9-15.3FFulton County Health CenterEthanol [Mass/volume] in Serum or PlasmaOrdered By: Antolin Abarca on 75-48-6200Uqrvmbx [Mass/Vol]mg/dLSelect Medical [facility], [place] Ethanol [Mass/Vol]TNPSelect Medical [facility], AvonComment on above:Test not performedGlobulin Calc (S) [Mass/Vol]Ordered By: Antolin Abarca on 05-10-2022 Globulin (S) [Mass/Vol]2.9 g/dLSelect Medical [facility] Clinic Rehabilitation Hospital, AvonGlucose [Mass/volume] in Serum or PlasmaOrdered By: Antolin Abarca on 19-46-5477Sptfybj [Mass/Vol]87 mg/oQ81-450GbhpynpdbSelect Medical [facility] Clinic Rehabilitation Hospital, AvonComment on above:ADA recommended reference rangeRandom Glucose Reference Range is dependent on time and content of last meal. Glucose of more than 200 mg/dL in a nonstressed, ambulatory subject supports the diagnosisof Diabetes Mellitus.HCG ( test) IA.rapid Ql (U)Ordered By: Antolin Abarca on 40-06-9238WFM ( test) Ql (U)NegativeSelect Medical [facility] Clinic [facility], AvonHematocrit Auto (Bld) [Volume fraction]Ordered By: Antolin Abarca on 52-38-9523Dlbagewykz (Bld) [Volume fraction]42.9 %34.0-46.4FFulton County Health CenterHemoglobin [Mass/volume] in BloodOrdered By: Antolin Abarca on 57-66-3497Wpcnvokkgr (Bld) [Mass/Vol]14.1 g/dL11.8-15.4FFulton County Health CenterKetones Auto test strip (U) [Mass/Vol]Ordered By: Antolin Abarca on 04-85-9177Puofsuk (U) [Mass/Vol]TraceNegativeSelect [facility], AvonLaboratory - Chemistry and Chemistry - challengeOrdered By: Antolin Abarca on 27-97-0928SYM/1.73 sq M.predicted MDRD (S/P/Bld) [Vol rate/Area]mL/min/{1.73_m2}[facility], AvonLeukocytes [#/volume] corrected for nucleated erythrocytes in Blood by Automated counOrdered By: Antolin Abarca on 72-04-0359ZYE corrected for nucl RBC Auto (Bld) [#/Vol]10.7 10*3/uL3.8-11.6FFulton County Health Center Lymphocytes Auto (Bld) [#/Vol]Ordered By: Antolin Abarca on 15-46-4466Jfmvkkdestb (Bld) [#/Vol]2.3 10*3/uL1.00-4.8[facility] Lymphocytes/100 WBC Auto (Bld)Ordered By: Antolin Abarca on 05-10-2022 Lymphocytes/100 WBC (Bld)21.1 %.[facility] Auto (RBC) [Entitic mass]Ordered By: Antolin Abarca on 25-41-1826PFU (RBC) [Entitic mass] 29.1 pg24.7-34.3FFulton County Health CenterMCHC Auto (RBC) [Mass/Vol] Ordered By: Antolin Abarca on 67-89-6759YPPO (RBC) [Mass/Vol]32.9 g/dL32.0-35.0 [facility], AvonMCV Auto (RBC) [Entitic vol]Ordered By: Antolin Abarca on 10-97-0634XWU (RBC) [Entitic vol]88.3 uH30-923KvmotbozrSelect Medical [facility] Clinic [facility], AvonMonocyte distribution width [Entitic volume] in Blood by Automated Ordered By: Antolin Abarca on 66-81-2501Gmijtghl distribution width Auto (Bld) [Entitic vol]18.66 %0.00-20.00[facility], AvonMonocytes Auto (Bld) [#/Vol]Ordered By: Antolin Abarca on 48-09-8576Txkifdqzt (Bld) [#/Vol]0.9 10*3/uL0.0-0.8[facility], AvonMonocytes/100 WBC Auto (Bld) Ordered By: Antolin Abarca on 30-24-1517Spcoddmkq/100 WBC (Bld)8.7 %.[facility], AvonNeutrophils Auto (Bld) [#/Vol]Ordered By: Antolin Abarca on 85-52-1871Jdhmvhtwklu (Bld) [#/Vol]7.2 10*3/uL1.8-7.7FFulton County Health CenterNeutrophils/100 WBC Auto (Bld)Ordered By: Antolin Abarca on 47-04-1797Wqagpnbrxkc/100 WBC (Bld)67.5 %.[facility] [place] Nitrite Test strip Ql (U)Ordered By: Antolin Abarca on 60-28-5904Bmgyxoa Ql (U) NegativeNegativeSelect Medical [facility], AvonNo Panel InformationOrdered By: Antolin Abarca on 18-09-8740Igxfksfh Creatinine Clearance (Ghdw842.62[facility], AvonNucleated erythrocytes [Presence] in Blood by Automated countOrdered By: Antolin Abarca on 38-19-1373Zifhkhwuz RBC Auto Ql (Bld)0.0 /100{WBC}0-0.5FFulton County Health CenterOpiates [Presence] in Urine by Screen methodOrdered By: Antolin Abarca on 24-35-6226Kylqboz Screen Ql (U) NegativeNegativeSelect Medical [facility] Clinic [facility], AvonPhencyclidine Screen Ql (U) Ordered By: Antolin Abarca on 83-24-2836Cvaxdydxxwlfz Ql (U)NegativeNegative [facility], AvonPlatelet mean volume Auto (Bld) [Entitic vol] Ordered By: Antolin Abarca on 22-44-7128Srktoouu mean volume (Bld) [Entitic vol] 6.8 fL6.3-10.7FFulton County Health CenterPlatelets Auto (Bld) [#/Vol] Ordered By: Antolin Abarca on 39-55-0936Iriumnaus (Bld) [#/Vol]267 10*3/hH715-905 [facility], AvonPotassium [Moles/volume] in Serum or Plasma Ordered By: Antolin Abarca on 32-47-3853Zvcvbnbum [Moles/Vol]4.7 mmol/L3.5-5.1 [facility], AvonProtein Auto test strip (U) [Mass/Vol]Ordered By: Antolin Abarca on 25-14-7678Exubkld (U) [Mass/Vol]30 mg/dLNegativeSelect Medical [facility], AvonProtein [Mass/volume] in Serum or PlasmaOrdered By: Antolin Abarca on 29-36-8236Fwzuwfe [Mass/Vol]6.9 g/dL6.4-8.9[facility], AvonRBC Auto (Bld) [#/Vol]Ordered By: Antolin Abarca on 34-54-7257CXD (Bld) [#/Vol]4.86 10*6/uL3.60-5.00[facility]. [facility] Hospitalerum or plasma albumin/globulin mass ratioOrdered By: Antolin Abarca on 05-10-2022 Albumin/Globulin [Mass ratio]1.4 {ratio}[facility]. [facility] Hospitalerum or plasma anion gap determinationOrdered By: Antolin Abarca on 00-18-5131Nrdzg gap [Moles/Vol]9.6 mmol/L6.0-15.0[facility]. [facility] Hospitalodium [Moles/volume] in Serum or PlasmaOrdered By: Antolin Abarca on 41-78-8272Ltauai [Moles/Vol]136 mmol/I592-441RxiwqufcySt. Francis Hospitalpecific gravity Auto test strip (U) [Rel density]Ordered By: Antolin Abarca on 98-65-9532Crflywoo gravity (U) [Rel density]1.0281.001-1.030[facility] [place] Squamous epithelial cells detection in urine sediment by light microscopyOrdered By: Antolin Abarca on 37-00-6786Ivldrsryoq cells.squamous LM Ql (Urine sed)3-4 [HPF]0-2FFulton County Health CenterUrea nitrogen [Mass/volume] in Serum or PlasmaOrdered By: Antolin Abarca on 68-51-5339Zcds nitrogen [Mass/Vol]11 mg/dL 7-25[facility], AvonUrine bacteria detection by automated methodOrdered By: Antolin Abarca on 21-55-6390Baledgir Auto Ql (U)1+None Seen [facility], AvonUrine clarity by refractometry automatedOrdered By: Antolin Abarca on 29-86-6570Vyfkzgv Refractometry automated (U)CloudyClear [facility], AvonUrine culture routineOrdered By: Antolin Abarca on 70-25-2827Vbholmxk identified Cx Nom (U)2 DaysSelect Medical [facility] Clinic Rehabilitation Hospital, AvonUrine glucose measurement by automated test strip (mass/volume)Ordered By: Antolin Abarca on 98-89-1852Ywvmxrt Auto test strip (U) [Mass/Vol]Normal mg/dL NormalSelect Medical Cleveland Clinic Rehabilitation Hospital, AvonUrine hemoglobin detection by automated test stripOrdered By: Antolin Abarca on 78-80-5322Wrmrvkmbcx Auto test strip Ql (U)2+NegativeSelect Medical [facility] Clinic Rehabilitation Hospital, AvonUrine leukocyte esterase detection by automated test stripOrdered By: Antolin Abarca on 14-12-6405Lhpdjptmi esterase Auto test strip Ql (U)3+NegativeSelect Medical [facility] Clinic [facility], [place] Urobilinogen Auto test strip (U) [Mass/Vol]Ordered By: Antolin Abarca on 51-95-4960Gwuozedhdwtv (U) [Mass/Vol]Normal mg/dLNormalSelect Medical [facility] Clinic Rehabilitation Hospital, AvonWBC Auto (Bld) [#/Vol]Ordered By: Antolin Abarca on 81-84-6882WIV (Bld) [#/Vol]10.7 10*3/uL3.8-11.6FFulton County Health CenterpH Auto test strip (U)Ordered By: Antolin Abarca on 01-11-0583kB (U)6.0 [pH]5.0-9.0[facility], AvonCovid-19 PCR (CVDTBH)on 79-40-5042SSOP-CoV-2 (COVID-19) RNA PITO+probe Ql (Unsp spec)DetectedAbnormalNOT DETECTEDThe [facility] Comment on above:Result Comment: This test is not yet approved [...] and/or diagnosis of the virus that causes COVID- 19. This EUA will remain in effect (meaning this test can be used) for the duration of the COVID-19 declaration justifying emergency of IVDs, unless it is terminated or revoked by FDA (after which the test may no longer be used). Performed By: #### LIPA, CMP #### [facility] [address] [place] [address] Dr. Toy Hopson AND B AGon 50-60-6492HPJYXCXHDARMV [facility] on above:Result Comment: Negative for Flu A protein angiten. Infection due to Flu A cannot be ruled out. FluA angiten in the sample may be below the detection limit of the test.Performed By: #### CMP, LIPA #### [facility] [address] [place] [address] Dr. Toy MichaelUBNEGDOMONIQUE [facility] on above: Result Comment: Negative for Flu B protein antigen. Infection due to Flu B cannot be ruled out. FluB antigen in the sample may be below the detection limit of the test.Performed By: #### CMP, LIPA #### [facility] [address] [place] [address] Dr. Toy Hopson AGNegativeNormalNEGATIVE SEE COMMENTThe [facility] on above:Performed By: #### CMP, LIPA #### [facility] [address] [place] [address] Dr. Toy Tracey AGNegativeNormalNEGATIVE SEE COMMENTThe [facility] on above:Performed By: #### CMP, LIPA #### [facility] [address] [place] [address] Dr. Toy MacarioXR CHEST 1 Von 01-01-1522WV CHEST 1 VEXAM: XR CHEST 1 V HISTORY: . COUGH . COMPARISON: 03/15/2018 TECHNIQUE: Single view of the chest FINDINGS: Heart and vascularity are unremarkable. Lungs are free of focal infiltrates. Grossly no bony abnormality is appreciated. IMPRESSION: No acute heart or lung disease identified. Electronically authenticated by: URIEL SPIVEY Date: 2022-03-13 15:46[facility], Edwin ShawProgress Noteson 25-24-5159Ilovapvkcpmxa Authentication Interface Message TextThis encounter was opened in error. Patient was a No-Show. Please disregard. Called, directly to busy signal. Roxanna Sarmiento MDBellevue Women's Hospital SystemProgress Noteson 09-02-2021 Union Representative Authentication Interface Message TextTUMOR BOARD NOTE Diagnosis: Liver Cyst General Information [...] and Staging Information: SPECIMEN FOR SURGICAL PATH: [id number] Order: [id number] Collected 07/30/2021 15:54 ??? Status: Final result ??? Visible to patient: Yes (not seen) ??? Dx: Liver cyst; Cyst of gallbladder ??? 0 Result Notes ??? Component ??? Case Report Surgical Pathology Report ? Case: [id number] ? Authorizing Provider: ???Roxanna Sarmiento MD ? Collected: ? 07/30/2021 1554 ? Ordering Location: ? [facility] Main OR ?Received: ? 08/03/2021 1030 [...] lymph nodes or masses grossly. ??? Sections: ???Shipping Manager ??? A1. ???Fibrotic tissue (X) ? B. [...] tumor, it is inked green. ??? Sections: ???Shipping Manager ??? B1. ???Cystic lesion, fibrotic area (X) [...] M.D ? Clinical Information ??? Resulting Agency [facility] [place] ? Specimen Collected: 07/30/21 15:54 Last Resulted: 08/05/21 08:46 ??? Order Details ??? View Encounter ??? Lab and Collection Details ??? Routing ??? Result History ? Scans on Order [id number] ??? Document on 08/05/2021 ???8:46 AM by Marc Ricketts, Treatment Recommendations and NCCN: Plan no surgical in (more content not included)...NormalThe [facility] Progress Noteson 14-23-5617Tpqjzuthulvkp Authentication Interface Message Text Patient was identified by name and date of . Narda Mercedes Patient at risk for falls:No Falls Risk protocol implemented: NoNormalThe [facility] SystemProgress Noteson 02-59-9811Aoscwngulwknw Authentication Interface Message TextPhone numbers Preferred Documentation: Mode: Telephone Patient Patient Work Phone: Patient Cell Preferred phone: [phone] Consent: I confirmed patient understanding of the risks and benefits of telehealth visits and obtained consent to proceed with the telehealth visit. Location of Patient: Home of patient Surgery Follow Up Feeling well since surgery. Still hurting but she is starting to feel better. [facility] week for staple removal. SPECIMEN FOR SURGICAL PATH: [id number] Order: [id number] Collected 07/30/2021 15:54 ??? Status: Final result ??? Visible to patient: Yes (not seen) ??? Dx: Liver cyst; Cyst of gallbladder ??? 0 Result Notes Component Case Report Surgical Pathology Report ? Case: [id number] ? Authorizing Provider: ???Roxanna Sarmiento MD ? Collected: ? 07/30/2021 1554 ? Ordering Location: ? [facility] Main OR ?Received: ? 08/03/20210 ? Pathologist: ? Marc Ricketts MD ? [...] lymph nodes or masses grossly. ??? Sections: Shipping Manager ??? A1. Fibrotic tissue (X) ? B. [...] tumor, it is inked green. ??? Sections: Shipping Manager ??? B1. Cystic lesion, fibrotic area (X) [...] Ivey M.D ? Clinical Information Resulting Agency [facility] Specimen Collected: 07/30/21 15:54 Last Resulted: 08/05/21 08:46 Order Details ??? View Encounter ??? Lab and Collection Details ??? Routing ??? Result History ??? Scans on Order [id number] Document on 08/05/2021 ???8:46 AM by Marc Ricketts MD ??? 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 Follow up in 6 months with a televisit in person if needed. Roxanna Sarmiento MD, FA (more content not included)...NormalThe Leconte Medical CenterKeko SystemCYTOLOGY FLUIDOrdered By: Ting Ram on 61-28-4758Wfuatcvjix (U)Mucoid [facility] Work Phone: Case ReportMedical Cytology Report Case: [id number] Authorizing Provider: Roxanna Sarmiento MD Collected: 07/30/2021 1619 Ordering Location: [facility] Main OR Received: 08/03/2021 0855 Pathologist: Ting Ram MD Specimen: Fluid, Cyst (Cytology), liver cyst fluid [facility] Work Phone: Cell Block y1fbnTXvJMPsyTQ6BXHqYUVjz6oym2AdjYOzuRWzIEuqyGOnghNwke66uRI1zI25SZ5xFSItVmA8CCSh mjN5Khm2MVQuMCQtuPWa Q773x1vph0zlhuWezTP8oUfxZTReigexSqS0JIgtXZBacksqGAh8ZRgpJIDrnCI0CEYofFZpC1SmWQLx IU7btkh4GRK6LNhxXPLt BfE2YTLciHFdYPYifVyxGBzdd805BSB2UtLnHMJgxkPnpCeqqF0iNiVcEYXZjJ2gDAqjUsinpcdzIUCw cmFudWxhciBkZWJyaXMs HITwujDedGLvyg3ceISsWXTjZBWqYXMwERprbbXmZGYeRMBhpaTePH3hAGMjnjehE3EmpKViXCZney7= [facility] Work Phone: Clinical InformationMetroHealth Work Phone: Color (U)RedMetroHealth Work Phone: Final Diagnosis e8ndeBGlWCNqp5cpHVPdjWScTbJoApUfMlXxSdvehWVfBQpmntSpUOpwkQhdQVqlIKkvidFvNJNemSBn C3VplyxpEOkaHJ9hVE9l sVoulUUiaAJiQCCuZkQlr1red551tOYyb6diABJKcjklgGe1oAxlN80fb5E0TlzqD34fpHJfSNM9YKNk YSZcvTJyBZCeWQE8ZXEh pOSpZ8ftWOXzUG4xkjtxYPhkAJxyOROvvHM8NQBxrHOkC0TtVTZgWNjwJHQrghe8JaGxDl4acBDbfJgr MFxwYXJkXHBsYWluXGJc FkZxCZChTjg7jWQtZCP5q7DbGEZ6aY9nh6i2RPyxbFy0CTTpN9akpJGnkJRsDLPbzLNpDBShEBEhfuXA AVuckQl5BBIaw9BluYTm zRubFU0scA7igPFqKYYur1OdfF37vkMuLOMpoCOeHFHnsqVtEAqujrIwAAEmPJTuCRrbbngvNL2zOPXc svCzkWSlqy8pmCUbRBGv ARDkSQEaWDRomtZtPBNsHOFkdN9gQCJwxQggoC0qCPHro8epU8pwdrOux9F3TB7yxUOuRBMotaKeY2Ho URNjyDjmAfpzQ2rkwD76 RJBkiwL6HAKse46rZiWeBKG8jLHzAQUnhW72KTbjUKMsyCNjGDLjqeYVtrelQBM3IJVdibTzwgSbTyZZ QXW0e2JtCdCqirUmRZXQ DJjBY1FNOYheOIV9b1iroIYtZCOktHSoHvBfUMIsNMKcq2tnKJEjlLDhBwToDcGkXhTqIdoxzCOaOAAe HgUst4ghv040sJGpf8sa COBtNdE7oJJgHPCweCUmU356IXQdLJebx6xhu3AxURYjvBRls6H4YZYFtgwqtZe3iUxpJ48ms3Q7Pffg M0vpRKXdFHIyD9DzPU1u DDKhPcj5YPH7VHS4ARPjXYr4DIjsAYUdAADgDig6DKl2SOvhctUgBWchcuAzcrMlSkf8KMCqV273MCN4 pEylo8xbESP3UKViQQIj BiWeVc1hlISjT454AUZoEAKFKSJvdNk3YSStohJlcxDlrGZFo793R836j6kaTTSohwDsyKaXzkaxx8gu S507RVJioUEtuvOwMxFh PODwlKCnpJU8NBPtMT9jiemmWAydEMunARKdadS8YEChrCWgU7YjOJJfAR1lxcwuDEI8LTnjGATwELG0 LsLhRFZbi1Tisuj5OkJj ds9rka35EYF8d5QtmPevVKU8EWT3ExGmOv6gvNMnECRvPT6eQfNrmIZsFXRzti88nFzkNUsdglDzbJ2s IvCqFTIefXZzJMQcTB5y pEKxAZTftS5ohgnfVKLxVsDupuqxCTIceUmcesTvNy3pfKheGPJ0BKpjR5gntH6sDgG7ULlsQ4tjuZ9w STf7DGgbsXF6MBGvvK7t JO0xrzxqy5hkEVbiQLclGXDjxeM8riL9FXBsbZJwB3XrzJ9qQPNrDI9bizuxf8vwIOU5RFadMSOxMZQ2 TkRaXXRvk9Tjdcv1JuBp n9TxlOLwAGgfY77uc937RROjxvWgU7xksUEtegrjaSJafaduFSlmuqO0DZHzFVAyDBvwABIzZGDeWnDq bGFuZzEwMzNcaGljaFxm TVorLcObFJHuDMftE6bxPwHdNmSzPxrqOKWguGtwwI3eFrPaOlAlCGnxXG8jJAItC9bfsLZcBXJwIZIp A9spRrJgeH8lbImpIDgd rqWcIVBdKDW5pb6trUCzjIh7DNYlO14xQSUHeILhJvaaJJj1HL9zUCSwlBPvJTQYAQIpmkWtJq2aFU6l MDIyLlxwYXJccGFyXHBs FVlnSPOnOWDlHTpukRTsVnAkDaUtiHzceLpkNOqrBdOdFLIwVIsyK1xeAuKqS1EzLGEmDYpybIIQYJJk cnRpZnkgdGhhdCBJIHBl mqPntwRhhEjjW78zAHBliPFvPQZpJQNgwRYleb5mvYypUVN1NTc0CXDqp17oi5BcbJjoNALnw4TpZUCz ZWNpbWVuKHMpIGFuZCBo WDTaSEQdijHeqqBeYWSxXNFrgI8ahWQesZWsho5kkMSpLBOoPpWxtVdqhP5dOzGvRjTqPjdhTF5vSSKd D3labUXpGASbPCHdT8xtVtVbcM3vgSxjELsuqcCnEHAlkmxkPEG4cL==IzognMiofox Work Phone: Gross Description y0neyTDgFPDliKT0TZVgGPPce7szz8ZodYKduEKuHAgsqDVtihPnlm97vSC2tT46YY2vHTXjDeW2NJVq isL2Vwo7OWNoABLkiIBc T632z4tbr1ndtsCloVK6mMoaJIOjqitiPcX2XIxtXJAypseyPYi1STteVDYxoKW9GXMqvZQnH9ZlVMOn LC9jhyf5VSJ2VMptEZAl GxQ4JLZglMKuGHSjcHigGCcsc360EZC6GgAzPOFhvqRtjIldcP1nZyOwCZXkFNOeuH2YnzImGYMebGLn IHByZXBhcmVkOiBBbGNv vP7eKKIxoQOaOBPfHBBurNZdelSyQMmtgRteCYReRP0zH02dTJ06NZL3MPohGuhrNTDoB1VvmIYIlQ6r lyImssOtPIQsAJOoj3Gf ZWgrsRmlNSJlc07sUNLQDFkyLUOce0TaZF8jyUFsrQAzIYLzdUPyYWrbFAFtHHTmZXL8piUsXWA7JdAc beIiVMBirv4xtKalWYHsdeRuNYRdzO38dzHmECAjed8=UqylnShfceu Work Phone: Volume1 mLMetroHealth Work Phone: [facility] Work Phone: AEROBIC WOUND CULTUREOrdered By: Annabelle Bourne on 18-79-3750Rumfhxxm identified Cx Nom (Wound)PositiveAbnormalMetroHealthBacteria identified Cx Nom (Wound)Rare Enterobacter cloacae complexMetroHealth Interpretation and review of laboratory resultsAbnormalMetroHealthMicroscopic observation Gram stain Nom (Unsp spec)4+ Polymorphonuclear LeukocytesMetroHealth Microscopic observation Gram stain Nom (Unsp spec)No Squamous Epithelial Cells seenMetroHealthMicroscopic observation Gram stain Nom (Unsp spec)No organisms seenMetroHealthMetroHealthBasic metabolic 2000 panelon 36-85-7738Hhyfk gap [Moles/Vol]14 mmol/LMetroHealthCalcium [Mass/Vol]8.7 mg/dL8.4 - 10.4 mg/dL MetroHealthChloride [Moles/Vol]103 mmol/L97 - 111 mmol/LMetroHealthCO2 [Moles/Vol]25 mmol/L21 - 30 mmol/LMetroHealthCreatinine [Mass/Vol]0.65 mg/dL0.50 - 1.10 mg/dLMetroHealthGFR/1.73 sq M.predicted MDRD (S/P/Bld) [Vol rate/Area] 112 mL/min/{1.73_m2}>=60 mL/min/1.73sqmMetroHealthComment on above:2020 CKD EPI Equation using Creatinine without Race Comment: Estimated glomerular filtration rate (eGFR) is calculated without a race coefficient. Values should be interpreted in the context of the patient's full clinical presentation. Reference: 1. Ortega C, Baweja M, Gina DC, et al.. A Unifying Approach for GFR Estimation: Recommendations of the NKF-ASN Task Force on Reassessing the Inclusion of Race in Diagnosing Kidney Disease. AmericanJournal of Kidney Diseases 202;79(2):268-88.e1. 2. N Engl J Med 1 Vol. 385 Issue 19 Pages 0314-1033 Glucose [Mass/Vol]88 mg/dL68 - 110 mg/dLMetroHealthInterpretation and review of laboratory resultsAbnormalMetroHealthPotassium [Moles/Vol]3.8 mmol/L3.3 - 5.3 mmol/LMetroHealthSodium [Moles/Vol]138 mmol/L135 - 148 mmol/LMetroHealthUrea nitrogen [Mass/Vol]3 mg/dLLow8 - 22 mg/dLMetroHealthMetroHealthCBC panel Auto (Bld)Ordered By: Mireya Holely on [id number] distribution width (RBC) [Ratio]15.4 %High11.5 - 14.5 %MetroHealthHematocrit (Bld) [Volume fraction]24.9 %Low36.0 - 46.0 %MetroHealthHemoglobin (Bld) [Mass/Vol]8.6 g/dLLow12.0 - 15.0 g/dLMetroHealthInterpretation and review of laboratory resultsAbnormal MetroHealthMCH (RBC) [Entitic mass]29.1 pg26.0 - 34.0 pgMetroHealthMCHC (RBC) [Mass/Vol]34.7 g/dL32.0 - 35.9 g/dLMetroHealthMCV (RBC) [Entitic vol]84 fL80 - 100 fLMetroHealthPlatelet mean volume (Bld) [Entitic vol]7.5 fL7.5 - 11.2 fL MetroHealthPlatelets (Bld) [#/Vol]245 10*3/uL150 - 400 K/uLMetroHealthRBC (Bld) [#/Vol]2.97 10*6/uLLowMetroHealthWBC (Bld) [#/Vol]6.5 10*3/uL4.5 - 11.5 K/uL MetroHealthMetroHealthHEPATIC FUNCTION PANELon [id number] [Mass/Vol]2.7 g/dLLow3.4 - 5.1 g/dLMetroHealthALP [Catalytic activity/Vol]43 U/LMetroHealthALT [Catalytic activity/Vol]29 U/LMetroHealthAST [Catalytic activity/Vol]26 U/L MetroHealthBilirubin [Mass/Vol]0.6 mg/dL0.1 - 1.5 mg/dLMetroHealth Bilirubin.direct [Mass/Vol]0.20 mg/dL0.10 - 0.30 mg/dLMetroHealthInterpretation and review of laboratory resultsAbnormalMetroHealthProtein [Mass/Vol]4.5 g/dLLow 6.2 - 8.3 g/dLMetroHealthLaboratory - Blood bankon [id number] crossmatch [Interp]Compatible (E)MetroHealthMajor crossmatch [Interp]Compatible (E) MetroHealthMAGNESIUMon 08-39-7679Kworukwkdvwkpo and review of laboratory results NormalMetroHealthMagnesium [Mass/Vol]1.9 mg/dL1.6 - 2.8 mg/dLMetroHealthNo Panel Informationon 63-44-2992XoljwIswuqzYdenh Product [id number] Product DescriptionFFPMetroHealthBlood Product Unit [id number]t on above:B PosStatusReleased to availMetroHealthMetroHealthBlood Product Code [id number] Product DescriptionRed Blood CellsMetroHealthBlood Product Unit Sfvv2749HgxfdIykeowFdivqyu on above:B PosStatusReleased to avail MetroHealthMetroHealthBlood Product [id number] Product DescriptionRed Blood CellsMetroHealthBlood Product Unit Rhgl2953VfxxgUhmeaf Comment on above:B PosStatusTransfusedMetroHealthMetroHealthPLASMA STATUSon 52-55-2753Ludsc product unit Nom (BPU) [ID][id number] product unit Nom (BPU) [ID][id number] BLOOD CELL UNIT STATUSon 19-17-0417Tcijc product unit Nom (BPU) [ID][id number] product unit Nom (BPU) [ID][id number] product unit Nom (BPU) [ID] [id number] product unit Nom (BPU) [ID][id number] [facility]HealthBasic metabolic 2000 panelon 69-79-3615Xwafj gap [Moles/Vol]11 mmol/L MetroHealthCalcium [Mass/Vol]8.4 mg/dL8.4 - 10.4 mg/dLMetroHealthChloride [Moles/Vol]106 mmol/L97 - 111 mmol/LMetroHealthCO2 [Moles/Vol]25 mmol/L21 - 30 mmol/LMetroHealthCreatinine [Mass/Vol]0.66 mg/dL0.50 - 1.10 mg/dLMetroHealth GFR/1.73 sq M.predicted MDRD (S/P/Bld) [Vol rate/Area]112 mL/min/{1.73_m2}>=60 mL/min/1.73sqmMetroHealthComment on above:2020 CKD EPI Equation using Creatinine without Race Comment: Estimated glomerular filtration rate (eGFR) is calculated without a race coefficient. Values should be interpreted in the context of the patient's full clinical presentation. Reference: 1. Jordan C, Conner M, Gina DC, et al.. A Unifying Approach for GFR Estimation: Recommendations of the NKF-ASN Task Force on Reassessing the Inclusion of Race in Diagnosing Kidney Disease. AmericanJournal of Kidney Diseases 202;79(2):268-88.e1. 2. N Engl J Med 2020 Vol. 385 Issue 19 Pages 6933-2010 Glucose [Mass/Vol]85 mg/dL68 - 110 mg/dLMetroHealthInterpretation and review of laboratory resultsAbnormalMetroHealthPotassium [Moles/Vol]4.2 mmol/L3.3 - 5.3 mmol/LMetroHealthSodium [Moles/Vol]138 mmol/L135 - 148 mmol/LMetroHealthUrea nitrogen [Mass/Vol]4 mg/dLLow8 - 22 mg/dLMetroHealthMetroHealthCBC panel Auto (Bld)on 07-20-7178Nksngkgcvsz distribution width (RBC) [Ratio]15.5 %High11.5 - 14.5 %MetroHealthHematocrit (Bld) [Volume fraction]24.0 %Low36.0 - 46.0 % MetroHealthHemoglobin (Bld) [Mass/Vol]8.0 g/dLLow12.0 - 15.0 g/dLMetroHealth Interpretation and review of laboratory resultsAbnormalMetroHealthMCH (RBC) [Entitic mass]27.8 pg26.0 - 34.0 pgMetroHealthMCHC (RBC) [Mass/Vol]33.3 g/dL32.0 - 35.9 g/dLMetroHealthMCV (RBC) [Entitic vol]84 fL80 - 100 fLMetroHealth Platelet mean volume (Bld) [Entitic vol]7.4 fLLow7.5 - 11.2 fLMetroHealth Platelets (Bld) [#/Vol]186 10*3/uL150 - 400 K/uLMetroHealthRBC (Bld) [#/Vol]2.87 10*6/uLLowMetroHealthWBC (Bld) [#/Vol]7.8 10*3/uL4.5 - 11.5 K/uLMetroHealth MetroHealthCT ABDOMEN/PELVIS W/ CONTRASTOrdered By: Mag Ordoñez on 08-02-2021 CT JEC116.8 (mGy.cm)[facility] Work Phone: cT SeriesAbdomenMetroHealth Work Phone: cTDI VOL16.5 (mGy)[facility] Work Phone: PHANTOM TYPEIEC Body Dosimetry PhantomMetroHealth Work Phone: [facility] Work Phone: ct ABDOMEN/PELVIS W/ CONTRASTon 80-72-4582HPBLHUGUBGG: CT ABDOMEN/PELVIS W/ CONTRAST 08/01/2021 12:41 PM CLINICAL HISTORY: Reason for Exam: Pt s/p Yovani en Y hepaticojejunostomy with bile leak. Consulted IR for PTHC drain placement. IR request CT with contrast to assess anatomy ASSOCIATED DIAGNOSIS: Pt s/p Yovani en Y hepaticojejunostomy with bile leak. Consulted IR for PTHC drain placement. IR request CT with contrast to assess anatomy Additional history per [facility] surgery note 07/30/2021: Status post laparoscopy with resection of ahepatic duct polyp and Yovani-en-Y hepaticojejunostomy x 2 [...] dated 07/30/2021; MRI of the abdomen with intravenouscontrast dated 04/27/2021 and 04/23/2021; outside CT dated [...] measuring up to 1.2 cm in diameter. Thecommon bile duct tapers distally. Query soft tissue [...] hepaticojejunostomy. No evidence of bowel obstruction. The appendixis within normal limits. Peritoneum and retroperitoneum: Small amount of free fluid in the gallbladder fossa and layering inthe pelvis which may represent sequelae of recent [...] dilatation with the common (more content not included)...RADIOLOGYMilnMag cardenas MD - 08/02/2021 EXAMINATION: CT ABDOMEN/PELVIS W/ CONTRAST [...] contrast to assess anatomy Additional history per [facility] surgery note 07/30/2021: Status post laparoscopy with resection of ahepatic duct polyp and Yovani-en-Y hepaticojejunostomy x 2 [...] dated 07/30/2021; MRI of the abdomen with intravenouscontrast dated 04/27/2021 and 04/23/2021; outside CT dated [...] measuring up to 1.2 cm in diameter. Thecommon bile duct tapers distally. Query soft tissue [...] hepaticojejunostomy. No evidence of bowel obstruction. The appendixis within normal limits. Peritoneum and retroperitoneum: Small amount of free fluid in the gallbladder fossa and layering inthe pelvis which may represent sequelae of recent [...] related to patient's known (more content not included)...MetroHealthHEPATIC FUNCTION PANELon 15-12-9758Okckbfu [Mass/Vol]2.6 g/dLLow3.4 - 5.1 g/dL MetroHealthALP [Catalytic activity/Vol]35 U/LLowMetroHealthALT [Catalytic activity/Vol]34 U/LMetroHealthAST [Catalytic activity/Vol]37 U/LMetroHealth Bilirubin [Mass/Vol]0.8 mg/dL0.1 - 1.5 mg/dLMetroHealthBilirubin.direct [Mass/Vol]0.20 mg/dL0.10 - 0.30 mg/dLMetroHealthInterpretation and review of laboratory resultsAbnormalMetroHealthProtein [Mass/Vol]4.4 g/dLLow6.2 - 8.3 g/dL MetroHealthMetroHealthMAGNESIUMon 77-48-5305Yuatwtvihkhlaj and review of laboratory resultsNormalMetroHealthMagnesium [Mass/Vol]1.9 mg/dL1.6 - 2.8 mg/dL MetroHealthMetroHealthBasic metabolic 2000 panelon 44-63-4769Yohus gap [Moles/Vol]11 mmol/LMetroHealthCalcium [Mass/Vol]8.1 mg/dLLow8.4 - 10.4 mg/dL MetroHealthChloride [Moles/Vol]105 mmol/L97 - 111 mmol/LMetroHealthCO2 [Moles/Vol]24 mmol/L21 - 30 mmol/LMetroHealthCreatinine [Mass/Vol]0.63 mg/dL0.50 - 1.10 mg/dLMetroHealthGFR/1.73 sq M.predicted MDRD (S/P/Bld) [Vol rate/Area] 113 mL/min/{1.73_m2}>=60 mL/min/1.73sqmMetroHealthComment on above:2020 CKD EPI Equation using Creatinine without Race Comment: Estimated glomerular filtration rate (eGFR) is calculated without a race coefficient. Values should be interpreted in the context of the patient's full clinical presentation. Reference: 1. Ortega C, Banilamja M, Gina DC, et al.. A Unifying Approach for GFR Estimation: Recommendations of the NKF-ASN Task Force on Reassessing the Inclusion of Race in Diagnosing Kidney Disease. AmericanJournal of Kidney Diseases 202;79(2):268-88.e1. 2. N Engl J Med 1 Vol. 385 Issue 19 Pages 6563-0425 Glucose [Mass/Vol]101 mg/dL68 - 110 mg/dLMetroHealthInterpretation and review of laboratory resultsAbnormalMetroHealthPotassium [Moles/Vol]4.5 mmol/L3.3 - 5.3 mmol/LMetroHealthSodium [Moles/Vol]135 mmol/L135 - 148 mmol/LMetroHealthUrea nitrogen [Mass/Vol]6 mg/dLLow8 - 22 mg/dLMetroHealthMetroHealthCBC panel Auto (Bld)Ordered By: Danyelle Cuevas on 52-11-4475Zozsodxcqai distribution width (RBC) [Ratio]15.6 %High11.5 - 14.5 %MetroHealthHematocrit (Bld) [Volume fraction]22.3 %Low36.0 - 46.0 %MetroHealthHemoglobin (Bld) [Mass/Vol]7.6 g/dLLow 12.0 - 15.0 g/dLMetroHealthInterpretation and review of laboratory results AbnormalMetroHealthMCH (RBC) [Entitic mass]28.4 pg26.0 - 34.0 pgMetroHealthMCHC (RBC) [Mass/Vol]34.0 g/dL32.0 - 35.9 g/dLMetroHealthMCV (RBC) [Entitic vol]84 fL 80 - 100 fLMetroHealthPlatelet mean volume (Bld) [Entitic vol]7.3 fLLow7.5 - 11.2 fLMetroHealthPlatelets (Bld) [#/Vol]163 10*3/uL150 - 400 K/uLMetroHealthRBC (Bld) [#/Vol]2.66 10*6/uLLowMetroHealthWBC (Bld) [#/Vol]7.6 10*3/uL4.5 - 11.5 K/uLMetroHealthMetroHealthCT ABDOMEN/PELVIS W/ CONTRASTon 51-78-4143Cfvshzfrd Study observation (narrative)MetroHealthHEPATIC FUNCTION PANELon 08-01-2021 Albumin [Mass/Vol]2.7 g/dLLow3.4 - 5.1 g/dLMetroHealthALP [Catalytic activity/Vol]32 U/LLowMetroHealthALT [Catalytic activity/Vol]40 U/LMetroHealth AST [Catalytic activity/Vol]53 U/LHighMetroHealthBilirubin [Mass/Vol]1.0 mg/dL 0.1 - 1.5 mg/dLMetroHealthBilirubin.direct [Mass/Vol]0.20 mg/dL0.10 - 0.30 mg/dL MetroHealthInterpretation and review of laboratory resultsAbnormalMetroHealth Protein [Mass/Vol]3.7 g/dLLow6.2 - 8.3 g/dLMetroHealthMAGNESIUMon 08-01-2021 Interpretation and review of laboratory resultsNormalMetroHealthMagnesium [Mass/Vol]1.9 mg/dL1.6 - 2.8 mg/dLMetroHealthNo Panel Informationon 08-01-2021 MetroHealthPARTIAL THROMBOPLASTIN TIMEon 55-46-1195rCPM Coag (Bld) [Time]29 s MetroHealthInterpretation and review of laboratory resultsNormalMetroHealth MetroHealthPROTHROMBIN TIME AND INRon 82-78-0724SQC Coag (PPP) [Relative time] 1.13 {INR}HighMetroHealthInterpretation and review of laboratory resultsAbnormal MetroHealthPT Coag (PPP) [Time]12.8 sMetroHealthMetroHealthBLOOD GAS, ARTERIAL Ordered By: Feliciano Cutler on 07-82-3865Leol excess Calc (Bld) [Moles/Vol]- 3.1000 mmol/LLow-2.0 - 2.0 mmol/LMetroHealthCO2 (Bld) [Partial pressure]36.3 mm[Hg]MetroHealthOxygen (Bld) [Partial pressure]97 mm[Hg]MetroHealthpH (Bld) 7.382 [pH]MetroHealthBasic metabolic 2000 panelon 10-44-7914Mrgyu gap [Moles/Vol]12 mmol/LMetroHealthCalcium [Mass/Vol]8.9 mg/dL8.4 - 10.4 mg/dL MetroHealthChloride [Moles/Vol]106 mmol/L97 - 111 mmol/LMetroHealthCO2 [Moles/Vol]22 mmol/L21 - 30 mmol/LMetroHealthCreatinine [Mass/Vol]0.85 mg/dL0.50 - 1.10 mg/dLMetroHealthGFR/1.73 sq M.predicted MDRD (S/P/Bld) [Vol rate/Area]87 mL/min/{1.73_m2}>=60 mL/min/1.73sqmMetroHealthComment on above:2020 CKD EPI Equation using Creatinine without Race Comment: Estimated glomerular filtration rate (eGFR) is calculated without a race coefficient. Values should be interpreted in the context of the patient's full clinical presentation. Reference: 1. Jordan C, Conner Davila, Gina [place], et al.. A Unifying Approach for GFR Estimation: Recommendations of the NKF-ASN Task Force on Reassessing the Inclusion of Race in Diagnosing Kidney Disease. AmericanJournal of Kidney Diseases 202;79(2):268-88.e1. 2. N Engl J Med 1 Vol. 385 Issue 19 Pages 9839-2121 Glucose [Mass/Vol]129 mg/vHWyiq99 - 110 mg/dLMetroHealthInterpretation and review of laboratory resultsAbnormalMetroHealthPotassium [Moles/Vol]4.6 mmol/L 3.3 - 5.3 mmol/LMetroHealthSodium [Moles/Vol]135 mmol/L135 - 148 mmol/L MetroHealthUrea nitrogen [Mass/Vol]10 mg/dL8 - 22 mg/dLMetroHealthMetroHealth CALCIUM, IONIZEDon 73-70-8011Tsnwnlv.ionized (Bld) [Moles/Vol]1.21 mmol/L1.10 - 1.40 mmol/LMetroHealthCBC panel Auto (Bld)on 00-98-0630Bykmpnhetxl distribution width (RBC) [Ratio]15.1 %High11.5 - 14.5 %MetroHealthHematocrit (Bld) [Volume fraction]28.7 %Low36.0 - 46.0 %MetroHealthHemoglobin (Bld) [Mass/Vol]9.9 g/dLLow 12.0 - 15.0 g/dLMetroHealthInterpretation and review of laboratory results AbnormalMetroHealthMCH (RBC) [Entitic mass]28.8 pg26.0 - 34.0 pgMetroHealthMCHC (RBC) [Mass/Vol]34.6 g/dL32.0 - 35.9 g/dLMetroHealthMCV (RBC) [Entitic vol]83 fL 80 - 100 fLMetroHealthPlatelet mean volume (Bld) [Entitic vol]7.3 fLLow7.5 - 11.2 fLMetroHealthPlatelets (Bld) [#/Vol]207 10*3/uL150 - 400 K/uLMetroHealthRBC (Bld) [#/Vol]3.45 10*6/uLLowMetroHealthWBC (Bld) [#/Vol]9.5 10*3/uL4.5 - 11.5 K/uLMetroHealthMetroHealthCO-OXIMETERon 68-35-8203Klfxfxsunzfmmoyhw (BldA) [Mass fraction]<0.7<3.0 %MetroHealthHematocrit (BldA) [Volume fraction]30.6 %Low36.0 - 46.0 %MetroHealthHemoglobin (Bld) [Mass/Vol]9.9 g/dLLow12.0 - 16.0 g/dL MetroHealthInterpretation and review of laboratory resultsAbnormalMetroHealth Methemoglobin (BldA) [Mass fraction]1.5 %<3.0MetroHealthOxyhemoglobin (BldA) [Mass fraction]95.9 %95.0 - 100.0 %MetroHealthMetroHealthELECTROLYTESon 82-92-2455Cghylhob [Moles/Vol]107 mmol/L97 - 111 mmol/LMetroHealthPotassium [Moles/Vol]4.1 mmol/L3.3 - 5.3 mmol/LMetroHealthSodium [Moles/Vol]138 mmol/L135 - 148 mmol/LMetroHealthGLUCOSE, WHOLE BLOODon 36-10-6069Rdsbjei [Mass/Vol]147 mg/hMCelw20 - 98 mg/dLMetroHealthHEPATIC FUNCTION PANELon 41-08-1944Iwgjbdw [Mass/Vol]3.7 g/dL3.4 - 5.1 g/dLMetroHealthALP [Catalytic activity/Vol]30 U/LLow [facility]HealthALT [Catalytic activity/Vol]55 U/LHighMetroHealthAST [Catalytic activity/Vol]102 U/LHighMetroHealthBilirubin [Mass/Vol]1.8 mg/dLHigh0.1 - 1.5 mg/dLMetroHealthBilirubin.direct [Mass/Vol]0.40 mg/dLHigh0.10 - 0.30 mg/dL [facility]HealthProtein [Mass/Vol]4.7 g/dLLow6.2 - 8.3 g/dLMetroHealthLACTIC ACIDon 61-66-9759Bkviksk [Moles/Vol]1.9 mmol/L0.5 - 2.0 mmol/LMetroHealthLaboratory - Chemistry and Chemistry - challengeOrdered By: Feliciano Cutler on 89-25-8155GUV2 (Bld) [Moles/Vol]21 mmol/LLow22 - 28 mmol/LMetroHealthMAGNESIUMon 07-31-2021 Magnesium [Mass/Vol]1.5 mg/dLLow1.6 - 2.8 mg/dLMetroHealthNo Panel Informationon 52-69-8112Qwhpgbnexrqaoo and review of laboratory resultsAbnormalMetroHealth MetroHealthInterpretation and review of laboratory resultsNormalMetroHealth Interpretation and review of laboratory resultsAbnormalMetroHealthMetroHealth BLOOD GAS, ARTERIALon 12-65-3957Dfla excess Calc (Bld) [Moles/Vol]-6.1000 mmol/L Low-2.0 - 2.0 mmol/LMetroHealthCO2 (Bld) [Partial pressure]37.4 mm[Hg] MetroHealthOxygen (Bld) [Partial pressure]202 mm[Hg]HighMetroHealthpH (Bld)7.323 [pH]LowMetroHealthBase excess Calc (Bld) [Moles/Vol]-4.0000 mmol/LLow-2.0 - 2.0 mmol/LMetroHealthCO2 (Bld) [Partial pressure]37.8 mm[Hg]MetroHealthOxygen (Bld) [Partial pressure]199 mm[Hg]HighMetroHealthpH (Bld)7.354 [pH]MetroHealthBLOOD GAS, ARTERIALOrdered By: Melissa Moon on 47-43-2116Gwro excess Calc (Bld) [Moles/Vol]-3.9000 mmol/LLow-2.0 - 2.0 mmol/LMetroHealthCO2 (Bld) [Partial pressure]43.0 mm[Hg]MetroHealthOxygen (Bld) [Partial pressure]175 mm[Hg]High MetroHealthpH (Bld)7.320 [pH]LowMetroHealthCALCIUM, IONIZEDon 07-30-2021 Calcium.ionized (Bld) [Moles/Vol]1.15 mmol/L1.10 - 1.40 mmol/LMetroHealth Calcium.ionized (Bld) [Moles/Vol]1.06 mmol/LLow1.10 - 1.40 mmol/LMetroHealth Calcium.ionized (Bld) [Moles/Vol]1.11 mmol/L1.10 - 1.40 mmol/LMetroHealth CO-OXIMETERon 72-37-0547Lpzrbcglyfsxxbasp (BldA) [Mass fraction]<0.7<3.0 % MetroHealthHematocrit (BldA) [Volume fraction]29.5 %Low36.0 - 46.0 %[facility] Hemoglobin (Bld) [Mass/Vol]9.5 g/dLLow12.0 - 16.0 g/dLMetroHealthMethemoglobin (BldA) [Mass fraction]1.5 %<3.0MetroHealthOxyhemoglobin (BldA) [Mass fraction] 96.5 %95.0 - 100.0 %MetroHealthCarboxyhemoglobin (BldA) [Mass fraction]<0.7<3.0 %MetroHealthHematocrit (BldA) [Volume fraction]37.4 %36.0 - 46.0 %[facility] Hemoglobin (Bld) [Mass/Vol]12.2 g/dL12.0 - 16.0 g/dLMetroHealthMethemoglobin (BldA) [Mass fraction]1.3 %<3.0MetroHealthOxyhemoglobin (BldA) [Mass fraction] 96.9 %95.0 - 100.0 %MetroHealthCarboxyhemoglobin (BldA) [Mass fraction]<0.7<3.0 %MetroHealthHematocrit (BldA) [Volume fraction]36.6 %36.0 - 46.0 %[facility] Hemoglobin (Bld) [Mass/Vol]11.9 g/dLLow12.0 - 16.0 g/dLMetroHealthMethemoglobin (BldA) [Mass fraction]1.2 %<3.0MetroHealthOxyhemoglobin (BldA) [Mass fraction] 96.4 %95.0 - 100.0 %MetroHealthELECTROLYTESon 13-35-5156Fqpuptho [Moles/Vol]110 mmol/L97 - 111 mmol/LMetroHealthPotassium [Moles/Vol]3.8 mmol/L3.3 - 5.3 mmol/L [facility]HealthSodium [Moles/Vol]138 mmol/L135 - 148 mmol/LMetroHealthChloride [Moles/Vol]112 mmol/LHigh97 - 111 mmol/LMetroHealthPotassium [Moles/Vol]3.5 mmol/L3.3 - 5.3 mmol/LMetroHealthSodium [Moles/Vol]135 mmol/L135 - 148 mmol/L MetroHealthChloride [Moles/Vol]108 mmol/L97 - 111 mmol/LMetroHealthPotassium [Moles/Vol]3.9 mmol/L3.3 - 5.3 mmol/LMetroHealthSodium [Moles/Vol]137 mmol/L135 - 148 mmol/LMetroHealthFFPon 81-26-5584LU Order ItemProduct status info to followMetroHealthMetroHealthGLUCOSE, WHOLE BLOODon 12-47-0383Ipowrtk [Mass/Vol] 170 mg/cPVehg32 - 98 mg/dLMetroHealthGlucose [Mass/Vol]187 mg/nKHygb37 - 98 mg/dLMetroHealthGlucose [Mass/Vol]192 mg/hJImlx69 - 98 mg/dLMetroHealthLACTIC ACIDon 33-31-2268Wcwniha [Moles/Vol]1.9 mmol/L0.5 - 2.0 mmol/LMetroHealthLactate [Moles/Vol]1.3 mmol/L0.5 - 2.0 mmol/LMetroHealthLactate [Moles/Vol]1.5 mmol/L 0.5 - 2.0 mmol/LMetroHealthLaboratory - Blood bankon 32-72-6004WEW and Rh group Nom (Bld)Blood group B Rh(D) positiveMetroHealthLaboratory - Chemistry and Chemistry - challengeon 49-42-0501RIF0 (Bld) [Moles/Vol]19 mmol/LLow22 - 28 mmol/LMetroHealthHCO3 (Bld) [Moles/Vol]21 mmol/LLow22 - 28 mmol/LMetroHealth Laboratory - Chemistry and Chemistry - challengeOrdered By: Melissa Moon on 02-38-2055PFU6 (Bld) [Moles/Vol]22 mmol/L22 - 28 mmol/LMetroHealthNo Panel Informationon 41-71-8792Dfrnhlzdwxpfiw and review of laboratory resultsAbnormal MetroHealthInterpretation and review of laboratory resultsNormalMetroHealth MetroHealthInterpretation and review of laboratory resultsAbnormalMetroHealth Interpretation and review of laboratory resultsNormalMetroHealthMetroHealth Interpretation and review of laboratory resultsNormalMetroHealthNo Panel InformationOrdered By: Melissa Moon on 52-04-7507Akzuplxmxhtoru and review of laboratory resultsAbnormalMetroHealthMetroHealthRED BLOOD CELL COMPONENTon 95-58-3700VN Order ItemProduct status info to followMetroHealthMetroHealthBB Order ItemProduct status info to followMetroHealthMetroHealthTRANSFUSE RED CELLS on 16-40-7588CeakvSwkxviGQVHLQJYI RED CELLSOrdered By: Adrian Bermudez on 11-77-8892OkxtpUiytxm Work Phone: TYPE AND SCREENon 53-70-1205Qtpvd group antibody screen QlNegativeMetroHealthMetroHealthURINE HCG-IN OFFICEOrdered By: Rachel Neville on 90-27-1138NXX ( test) Ql (U)NegativeNegativeMetroHealth Interpretation and review of laboratory resultsNormalMetroHealthNegative Internal ControlNegativeNegativeMetroHealthPositive Internal ControlPositive PositiveMetroHealthMetroHealthCBC panel Auto (Bld)on 09-82-6749Rraerntdtpb distribution width (RBC) [Ratio]16.6 %High11.5 - 14.5 %MetroHealthHematocrit (Bld) [Volume fraction]35.3 %Low36.0 - 46.0 %[facility]roHealthHemoglobin (Bld) [Mass/Vol]11.7 g/dLLow12.0 - 15.0 g/dLMetroHealthInterpretation and review of laboratory resultsAbnormalMetroHealthMCH (RBC) [Entitic mass]28.1 pg26.0 - 34.0 pgMetroHealthMCHC (RBC) [Mass/Vol]33.2 g/dL32.0 - 35.9 g/dLMetroHealthMCV (RBC) [Entitic vol]85 fL80 - 100 fLMetroHealthPlatelet mean volume (Bld) [Entitic vol] 8.0 fL7.5 - 11.2 fLMetroHealthPlatelets (Bld) [#/Vol]220 10*3/uL150 - 400 K/uL MetroHealthRBC (Bld) [#/Vol]4.18 10*6/uLMetroHealthWBC (Bld) [#/Vol]7.3 10*3/uL 4.5 - 11.5 K/uLMetroHealthMetroHealthFERRITINon 37-22-3388Twwopjkj [Mass/Vol] 14.2 ng/mL10.3 - 219.0 ng/mLMetroHealthInterpretation and review of laboratory resultsNormalMetroHealthMetroHealthIRON AND TIBCon 07-29-4893Czlcnjsypihfgb and review of laboratory resultsAbnormalMetroHealthIron [Mass/Vol]35 ug/dLLow45 - 160 ug/dLMetroHealthIron binding capacity [Mass/Vol]407 ug/mL250 - 410 ug/mL MetroHealthIron saturation [Mass fraction]9 %Low20 - 55 %MetroHealthTransferrin [Mass/Vol]291 mg/dL210 - 375 mg/dLMetroHealthMetroHealthPROTHROMBIN TIME AND INR Ordered By: Jean Lee on 63-88-7311SKK Coag (PPP) [Relative time]1.01 {INR} MetroHealthInterpretation and review of laboratory resultsNormalMetroHealthPT Coag (PPP) [Time]11.0 sMetroHealthMetroHealthURINE HCG-IN OFFICEOrdered By: Lyela Reyes on 84-99-7658OUD ( test) Ql (U)NegativeNegative MetroHealthInterpretation and review of laboratory resultsNormalMetroHealth Negative Internal ControlNegativeNegativeMetroHealthPositive Internal Control PositivePositiveMetroHealthMetroHealthCovid-19 PCR (CVDTBH)on 06-14-2021 SARS-CoV-2 (COVID-19) RNA PITO+probe Ql (Unsp spec)Not detectedNormalNOT DETECTED [facility] HospitalComment on above:Result Comment: This test is not yet approved [...] of clinical signs and symptoms consistent with SARS-CoV-2.Performed By: #### CVDTBH #### [facility] [address] [place] [address] Dr. Toy Stubbs AUTO DIFFon 56-75-5606XFTE #0.1 103/ulNormal0.0-0.1The [facility] HospitalComment on above:Performed By: #### CBC #### [facility] [address] [place] [address] Dr. Toy Rondonsophils/100 WBC (Bld)0.8 %Normal0.2-2.0[facility] Comment on above:Performed By: #### CBC #### [facility] [address] [place] [address] Dr. Toy Forbes #0.2 103/ulNormal0.0-0.7The [facility] HospitalComment on above: Performed By: #### CBC #### [facility] [address] [place] [address] Dr. Toy Springerosinophils/100 WBC (Bld)2.5 %Normal0.9-7.0The [facility] Comment on above:Performed By: #### CBC #### [facility] [address] [place] [address] Dr. Toy Springerrythrocyte distribution width (RBC) [Ratio]14.3 %Sqyaku41.0-15.0 The [facility] HospitalComment on above:Performed By: #### CBC #### [facility] [address] [place] [address] Dr. Toy MacarioHematocrit (Bld) [Volume fraction]26.9 %Critically low36.0-48.0 The [facility] HospitalComment on above:Performed By: #### CBC #### [facility] [address] [place] [address] Dr. Tyo MacarioHemoglobin (Bld) [Mass/Vol]7.7 g/dLCritically low12.0-16.0The [facility] HospitalComment on above:Performed By: #### CBC #### [facility] [address] [place] [address] Dr. Toy Daniel #0.04 10e3/ulCritically high0.00-0.03The [facility] Comment on above:Performed By: #### CBC #### [facility] [address] [place] [address] Dr. Toy Daniel %0.7 %Critically high0.0-0.5The [facility] HospitalComment on above:Performed By: #### CBC #### [facility] [address] [place] [address] Dr. Toy Cool #1.2 103/ulNormal1.2-3.8The [facility] HospitalComment on above:Performed By: #### CBC #### [facility] [address] [place] [address] Dr. Toy Ohmphocytes/100 WBC (Bld)19.2 %Critically low20.5-60.0The [facility] HospitalComment on above:Performed By: #### CBC #### [facility] [address] [place] [address] Dr. Toy LongUAL DIFF REQNONormalThe [facility] HospitalComment on above: Performed By: #### CBC #### [facility] [address] [place] [address] Dr. Toy Greene (RBC) [Entitic mass]27.6 ktDwmhix70.7-34.0The [facility] HospitalComment on above:Performed By: #### CBC #### [facility] [address] [place] [address] Dr. Toy Singletary (RBC) [Mass/Vol]28.6 g/dLCritically low29.9-35.2The [facility] HospitalComment on above:Performed By: #### CBC #### [facility] [address] [place] [address] Dr. Toy Dozier (RBC) [Entitic vol]96.4 xYYdsbnl72.0-99.0The [facility] HospitalComment on above:Performed By: #### CBC #### [facility] [address] [place] [address] Dr. Toy Cha #0.4 103/ulNormal0.3-0.8The [facility] HospitalComment on above:Performed By: #### CBC #### [facility] [address] [place] [address] Dr. Toy Diazocytes/100 WBC (Bld)7.2 %Normal1.7-12.0The [facility] Comment on above:Performed By: #### CBC #### [facility] [address] [place] [address] Dr. Toy Rader #4.3 103/ulNormal1.4-6.5The [facility] HospitalComment on above:Performed By: #### CBC #### [facility] [address] [place] [address] Dr. Toy Estevesutrophils/100 WBC (Bld)69.6 %Hdciqt66.0-75.0The [facility] HospitalComment on above:Performed By: #### CBC #### [facility] [address] [place] [address] Dr. Toy Frairelet mean volume (Bld) [Entitic vol]10.0 fLNormal9.5-13.5The [facility] HospitalComment on above:Performed By: #### CBC #### [facility] [address] [place] [address] Dr. Toy MacarioPLT238 103/gmPaenac982-290Jtb [facility] HospitalComment on above: Performed By: #### CBC #### [facility] [address] [place] [address] Dr. Toy MacarioRBC2.79 106/ulCritically low4.20-5.40The [facility] HospitalComment on above:Performed By: #### CBC #### [facility] [address] [place] [address] Dr. Toy MacarioWBC6.1 103/ulNormal4.0-11.0The [facility]Com[facility] on above: Performed By: #### CBC #### [facility] [address] [place] [address] Dr. Toy MacarioLIPASEon [id number] [Catalytic activity/Vol]712.0 U/L Critically high23.0-300.0The [facility] HospitalComment on above:Performed By: #### LIPA, CMP #### [facility] [address] [place] [address] Dr. Toy MacarioMAGNESIUMon 89-47-2863Jarhoigyf [Mass/Vol]2.6 mg/dLCritically high1.6-2.3The [facility] HospitalComment on above:Performed By: #### LIPA, CMP #### [facility] [address] [place] [address] Dr. Toy MacarioPHOSPHORUSon [id number] [Mass/Vol]3.8 mg/dLNormal2.5-4.5 The [facility] HospitalComment on above:Performed By: #### LIPA, CMP #### [facility] [address] [place] [address] Dr. Toy MacarioMARTY OF [facility] GLUCOSEon 70-75-5390Zomfnoo [Mass/Vol]114 mg/dL Critically umwk23-473Ykr [facility] HospitalComment on above:Performed By: #### LIPA, CMP #### [facility] [address] [place] [address] Dr. Yilan ChangGlucose [Mass/Vol]123 mg/dLCritically qlyv33-184Jaq [facility] HospitalComment on above:Performed By: #### LIPA, CMP #### [facility] [address] [address] [address] Toy MacarioGlucose [Mass/Vol]131 mg/dLCritically ehsp08-959Zge [facility] HospitalComment on above:Performed By: #### LIPA, CMP #### [facility] [address] [address] [address] Toy MacarioPROF 14(COMP METB)on [id number] [Mass/Vol]1.9 g/dL Critically low3.5-5.0The [facility] HospitalComment on above:Performed By: #### LIPA, CMP #### [facility] [address] [place] [address] Dr. Toy MacarioAlbumin/Globulin [Mass ratio]0.5 {ratio}NormalThe [facility] HospitalComment on above:Performed By: #### LIPA, CMP #### [facility] [address] [place] [address] Dr. Toy Garcia [Catalytic activity/Vol]60 U/QBdknvn56-426Evu [facility] HospitalComment on above:Performed By: #### LIPA, CMP #### [facility] [address] [place] [address] Dr. Toy Ojeda [Catalytic activity/Vol]14 U/LNormal9-52The [facility] Comment on above:Performed By: #### LIPA, CMP #### [facility] [address] [place] [address] Dr. Toy Rosenberg gap [Moles/Vol]12.7 mmol/LNormalThe [facility] Comment on above:Performed By: #### LIPA, CMP #### [facility] [address] [place] [address] Dr. Toy Quiroz [Catalytic activity/Vol]13 U/LCritically hli31-85Eiq [facility] HospitalComment on above:Performed By: #### LIPA, CMP #### [facility] [address] [address] [address] Toy MacarioBilirubin [Mass/Vol]0.3 mg/dLNormal0.2-1.3The [facility] Comment on above:Performed By: #### LIPA, CMP #### [facility] [address] [address] [address] Toy MacarioCalcium [Mass/Vol]8.6 mg/dLNormal8.4-10.2The [facility] Comment on above:Performed By: #### LIPA, CMP #### [facility] [address] [place] [address] Dr. Toy MacarioChloride [Moles/Vol]106 mmol/YRzozbw35-700EonThe [facility] Comment on above:Performed By: #### LIPA, CMP #### [facility] [address] [place] [address] Dr. Toy MacarioCO2 [Moles/Vol]26.9 mmol/MNqkxdd09.0-30.0The [facility] Comment on above:Performed By: #### LIPA, CMP #### [facility] [address] [place] [address] Dr. Toy MacarioCreatinine [Mass/Vol]0.59 mg/dLNormal0.52-1.04The [facility] HospitalComment on above:Performed By: #### LIPA, CMP #### [facility] [address] [place] [address] Dr. Toy SpringerGFR-AF ST LUCIAN>60Normal>=60The [facility] HospitalComment on above:Performed By: #### LIPA, CMP #### [facility] [address] [place] [address] Dr. Toy SpringerGFR-NON AF [facility] LUCIAN>60Normal>=60The [facility] HospitalComment on above:Performed By: #### LIPA, CMP #### [facility] [address] [place] [address] Dr. Toy MacarioGlobulin (S) [Mass/Vol]4.0 g/dLNormalThe [facility] HospitalComment on above:Performed By: #### LIPA, CMP #### [facility] [address] [address] [address] Toy MacarioGlucose [Mass/Vol]109 mg/dLCritically xsan61-130Cdq [facility] HospitalComment on above:Performed By: #### LIPA, CMP #### [facility] [address] [address] [address] Toy MacarioPotassium [Moles/Vol]3.6 mmol/LNormal3.4-5.0The [facility] Comment on above:Performed By: #### LIPA, CMP #### [facility] [address] [place] [address] Dr. Toy MacarioProtein [Mass/Vol]5.9 g/dLCritically low6.1-8.2The [facility] HospitalComment on above:Performed By: #### LIPA, CMP #### [facility] [address] [place] [address] Dr. Toy MacarioSodium [Moles/Vol]142 mmol/YTinnqa493-261Ikl [facility] Comment on above:Performed By: #### LIPA, CMP #### [facility] [address] [place] [address] Dr. Toy MacarioUrea nitrogen [Mass/Vol]9.0 mg/dLNormal7.0-17.0The [facility] HospitalComment on above:Performed By: #### LIPA, CMP #### [facility] [address] [place] [address] Dr. Toy Metzger nitrogen/Creatinine [Mass ratio]15.3 mg/mgNormalThe [facility] HospitalComment on above:Performed By: #### LIPA, CMP #### [facility] [address] [place] [address] Dr. Toy MacarioTRIGLYCERIDEon 83-90-3884Gjzbytkwidre [Mass/Vol]84 mg/dLNormal <=150The [facility] HospitalComment on above:Performed By: #### LIPA, CMP #### [facility] [address] [place] [address] DrJp Stubbs AUTO DIFFon 57-00-7543QEUA #0.1 103/ulNormal0.0-0.1The [facility] HospitalComment on above:Performed By: #### CVDTBH #### [facility] [address] [place] [address] Dr. Toy MacarioBasophils/100 WBC (Bld)0.7 %Normal0.2-2.0The [facility] Comment on above:Performed By: #### CVDTBH #### [facility] [address] [place] [address] Dr. Toy Forbes #0.1 103/ulNormal0.0-0.7The [facility] HospitalComment on above: Performed By: #### CVDTBH #### [facility] [address] [place] [address] Dr. Toy Springerosinophils/100 WBC (Bld)1.5 %Normal0.9-7.0The [facility] Comment on above:Performed By: #### CVDTBH #### [facility] [address] [place] [address] Dr. Toy Springerrythrocyte distribution width (RBC) [Ratio]13.8 %Phbnis66.0-15.0 The [facility] HospitalComment on above:Performed By: #### CVDTBH #### [facility] [address] [place] [address] Dr. Toy MacarioHematocrit (Bld) [Volume fraction]26.3 %Critically low36.0-48.0 The [facility] HospitalComment on above:Performed By: #### CVDTBH #### [facility] [address] [place] [address] Dr. Toy MacarioHemoglobin (Bld) [Mass/Vol]8.2 g/dLCritically low12.0-16.0The [facility] HospitalComment on above:Performed By: #### CVDTBH #### [facility] [address] [place] [address] Dr. Toy Daniel #0.13 10e3/ulCritically high0.00-0.03The [facility] Comment on above:Performed By: #### CVDTBH #### [facility] [address] [address] [address] Toy Daniel %1.8 %Critically high0.0-0.5The [facility] HospitalComment on above:Performed By: #### CVDTBH #### [facility] [address] [place] [address] Dr. Toy Cool #1.3 103/ulNormal1.2-3.8The [facility] HospitalComment on above:Performed By: #### CVDTBH #### [facility] [address] [place] [address] Dr. Toy Weisshocytes/100 WBC (Bld)18.6 %Critically low20.5-60.0The [facility] HospitalComment on above:Performed By: #### CVDTBH #### [facility] [address] [place] [address] Dr. Toy Costello DIFF REQNONormalThe [facility] HospitalComment on above: Performed By: #### CVDTBH #### [facility] [address] [place] [address] Dr. Toy Greene (RBC) [Entitic mass]27.7 bbBwrkbx81.7-34.0The [facility] HospitalComment on above:Performed By: #### CVDTBH #### [facility] [address] [place] [address] Dr. Toy Singletary (RBC) [Mass/Vol]31.2 g/pTOguhyu72.9-35.2The [facility] HospitalComment on above:Performed By: #### CVDTBH #### [facility] [address] [place] [address] Dr. Toy Dozier (RBC) [Entitic vol]88.9 bTOqprtq94.0-99.0The [facility] HospitalComment on above:Performed By: #### CVDTBH #### [facility] [address] [place] [address] Dr. Toy Cha #0.4 103/ulNormal0.3-0.8The [facility] HospitalComment on above:Performed By: #### CVDTBH #### [facility] [address] [place] [address] Dr. Toy Diazocytes/100 WBC (Bld)6.0 %Normal1.7-12.0The [facility] Comment on above:Performed By: #### CVDTBH #### [facility] [address] [place] [address] Dr. Toy Rader #5.2 103/ulNormal1.4-6.5The [facility] HospitalComment on above:Performed By: #### CVDTBH #### [facility] [address] [place] [address] Dr. Toy Estevesutrophils/100 WBC (Bld)71.4 %Dpjkeo44.0-75.0The [facility] HospitalComment on above:Performed By: #### CVDTBH #### [facility] [address] [place] [address] Dr. Toy Frairelet mean volume (Bld) [Entitic vol]9.9 fLNormal9.5-13.5The [facility] HospitalComment on above:Performed By: #### CVDTBH #### [facility] [address] [place] [address] Dr. Toy MacarioPLT245 103/vvXoqzqz030-804Szl [facility] HospitalComment on above: Performed By: #### CVDTBH #### [facility] [address] [place] [address] Dr. Toy MacarioRBC2.96 106/ulCritically low4.20-5.40The [facility] HospitalComment on above:Performed By: #### CVDTBH #### [facility] [address] [place] [address] Dr. Toy MacarioWBC7.2 103/ulNormal4.0-11.0The [facility] HospitalComment on above: Performed By: #### CVDTBH #### [facility] [address] [place] [address] Dr. Toy MacarioLIPASEon 31-94-3591Wwyxfk [Catalytic activity/Vol]645.0 U/L Critically high23.0-300.0The [facility] HospitalComment on above:Performed By: #### OBIA #### [facility] [address] [place] [address] Dr. Toy MacarioMAGNESIUMon 07-49-8716Oaipwqkfi [Mass/Vol]2.0 mg/dLNormal1.6-2.3 The [facility] HospitalComment on above:Performed By: #### OBIA #### [facility] [address] [place] [address] Dr. Toy MacarioPHOSPHORUSon 12-51-9635Hrrgmckcq [Mass/Vol]3.6 mg/dLNormal2.5-4.5 The [facility] HospitalComment on above:Performed By: #### OBIA #### [facility] [address] [place] [address] Dr. Toy MacarioPOTASSIUMon 23-96-9173Dwhcvmytl [Moles/Vol]3.5 mmol/LNormal 3.4-5.0The [facility] HospitalComment on above:Performed By: #### K #### [facility] [address] [place] [address] Dr. Toy MacarioPROF 14(COMP METB)on [id number] [Mass/Vol]1.8 g/dL Critically low3.5-5.0The [facility] HospitalComment on above:Performed By: #### OBIA #### [facility] [address] [place] [address] Dr. Toy MacarioAlbumin/Globulin [Mass ratio]0.4 {ratio}NormalThe [facility] HospitalComment on above:Performed By: #### OBIA #### [facility] [address] [place] [address] Dr. Toy MacarioALP [Catalytic activity/Vol]65 U/FGsvqyw64-631Spq [facility] HospitalComment on above:Performed By: #### OBIA #### [facility] [address] [address] [address] Toy LyonsT [Catalytic activity/Vol]13 U/LNormal9-52The [facility] Comment on above:Performed By: #### OBIA #### [facility] [address] [address] [address] Toy MacarioAnion gap [Moles/Vol]8.2 mmol/LNormalThe [facility] HospitalComment on above:Performed By: #### OBIA #### [facility] [address] [address] [address] Toy MacarioAST [Catalytic activity/Vol]14 U/RRualqi04-31Ufs [facility] HospitalComment on above:Performed By: #### OBIA #### [facility] [address] [place] [address] Dr. Toy MacarioBilirubin [Mass/Vol]0.3 mg/dLNormal0.2-1.3The [facility] Comment on above:Performed By: #### OBIA #### [facility] [address] [place] [address] Dr. Toy MacarioCalcium [Mass/Vol]8.3 mg/dLCritically low8.4-10.2The [facility] HospitalComment on above:Performed By: #### OBIA #### [facility] [address] [place] [address] Dr. Toy MacarioChloride [Moles/Vol]106 mmol/HAtrjlg15-699Bzj [facility] Comment on above:Performed By: #### OBIA #### [facility] [address] [place] [address] Dr. Toy MacarioCO2 [Moles/Vol]27.7 mmol/YNzalks79.0-30.0The [facility] Comment on above:Performed By: #### OBIA #### [facility] [address] [place] [address] Dr. Toy MacarioCreatinine [Mass/Vol]0.59 mg/dLNormal0.52-1.04The [facility] HospitalComment on above:Performed By: #### OBIA #### [facility] [address] [place] [address] Dr. Toy SpringerGFR-AF ST LUCIAN>60Normal>=60The [facility] HospitalComment on above:Performed By: #### OBIA #### [facility] [address] [place] [address] Dr. Toy SpringerGFR-NON AF [facility] LUCIAN>60Normal>=60The [facility] HospitalComment on above:Performed By: #### OBIA #### [facility] [address] [place] [address] Dr. Toy MacarioGlobulin (S) [Mass/Vol]4.3 g/dLNormalThe [facility] HospitalComment on above:Performed By: #### OBIA #### [facility] [address] [place] [address] Dr. Toy MacarioGlucose [Mass/Vol]117 mg/dLCritically rxcy83-518Ner [facility] HospitalComment on above:Performed By: #### OBIA #### [facility] [address] [place] [address] Dr. Toy MacarioPotassium [Moles/Vol]2.9 mmol/LCritically low3.4-5.0The [facility] HospitalComment on above:Result Comment: Test Repeated. Criticall Value Verified Performed By: #### OBIA #### [facility] [address] [place] [address] Dr. Toy MacarioProtein [Mass/Vol]6.1 g/dLNormal6.1-8.2The [facility] Comment on above:Performed By: #### OBIA #### [facility] [address] [place] [address] Dr. Toy MacarioSodium [Moles/Vol]139 mmol/AVhnuhz426-355Mzr [facility] Comment on above:Performed By: #### OBIA #### [facility] [address] [place] [address] Dr. Toy MacarioUrea nitrogen [Mass/Vol]7.0 mg/dLNormal7.0-17.0The [facility] HospitalComment on above:Performed By: #### OBIA #### [facility] [address] [address] [address] Toy MacarioUrea nitrogen/Creatinine [Mass ratio]11.9 mg/mgNormalThe [facility] HospitalComment on above:Performed By: #### OBIA #### [facility] [address] [place] [address] Dr. Toy MacarioTRIGLYCERIDEon 37-88-6838Vspcmkndkisj [Mass/Vol]182 mg/dL Critically high<=150The [facility] HospitalComment on above:Performed By: #### LIPA, CMP #### [facility] [address] [place] [address] Dr. Toy BrockC AUTO DIFFon 15-43-7458WLAZ #0.0 103/ulNormal0.0-0.1The [facility] HospitalComment on above:Performed By: #### CBC #### [facility] [address] [place] [address] Dr. Toy MacarioBasophils/100 WBC (Bld)0.3 %Normal0.2-2.0[facility] Comment on above:Performed By: #### CBC #### [facility] [address] [place] [address] Dr. Toy Forbes #0.1 103/ulNormal0.0-0.7The [facility] HospitalComment on above: Performed By: #### CBC #### [facility] [address] [place] [address] Dr. Toy Springerosinophils/100 WBC (Bld)1.2 %Normal0.9-7.0The [facility] Comment on above:Performed By: #### CBC #### [facility] [address] [place] [address] Dr. Toy Springerrythrocyte distribution width (RBC) [Ratio]13.9 %Oboedh69.0-15.0 The [facility] HospitalComment on above:Performed By: #### CBC #### [facility] [address] [place] [address] Dr. Toy MacarioHematocrit (Bld) [Volume fraction]26.4 %Critically low36.0-48.0 The [facility] HospitalComment on above:Performed By: #### CBC #### [facility] [address] [place] [address] Dr. Toy MacarioHemoglobin (Bld) [Mass/Vol]8.3 g/dLCritically low12.0-16.0The [facility] HospitalComment on above:Performed By: #### CBC #### [facility] [address] [place] [address] Dr. Toy Daniel #0.03 10e3/ulNormal0.00-0.03The [facility] HospitalComment on above:Performed By: #### CBC #### [facility] [address] [place] [address] Dr. Toy Daniel %0.5 %Normal0.0-0.5The [facility] HospitalComment on above: Performed By: #### CBC #### [facility] [address] [place] [address] Dr. Toy Colo #1.1 103/ulCritically low1.2-3.8The [facility] Comment on above:Performed By: #### CBC #### [facility] [address] [place] [address] Dr. Toy Weisshocytes/100 WBC (Bld)18.3 %Critically low20.5-60.0The [facility] HospitalComment on above:Performed By: #### CBC #### [facility] [address] [place] [address] Dr. Toy LongUAL DIFF REQNONormalThe [facility] HospitalComment on above: Performed By: #### CBC #### [facility] [address] [place] [address] Dr. Toy Greene (RBC) [Entitic mass]27.7 azPbiviq86.7-34.0The [facility] HospitalComment on above:Performed By: #### CBC #### [facility] [address] [place] [address] Dr. Toy Singletary (RBC) [Mass/Vol]31.4 g/wTGxvbng09.9-35.2The [facility] HospitalComment on above:Performed By: #### CBC #### [facility] [address] [place] [address] Dr. Toy Dozier (RBC) [Entitic vol]88.0 lPDckgvh91.0-99.0The [facility] HospitalComment on above:Performed By: #### CBC #### [facility] [address] [place] [address] Dr. Toy Cha #0.4 103/ulNormal0.3-0.8The [facility] HospitalComment on above:Performed By: #### CBC #### [facility] [address] [place] [address] Dr. Toy Diazocytes/100 WBC (Bld)6.3 %Normal1.7-12.0The [facility] Comment on above:Performed By: #### CBC #### [facility] [address] [place] [address] Dr. Toy Rader #4.3 103/ulNormal1.4-6.5The [facility] HospitalComment on above:Performed By: #### CBC #### [facility] [address] [place] [address] Dr. Toy Estevesutrophils/100 WBC (Bld)73.4 %Gqfucx11.0-75.0The [facility] HospitalComment on above:Performed By: #### CBC #### [facility] [address] [place] [address] Dr. Toy Frost mean volume (Bld) [Entitic vol]9.3 fLCritically low 9.5-13.5The [facility] HospitalComment on above:Performed By: #### CBC #### [facility] [address] [place] [address] Dr. Toy QuinterosT242 103/odEdpllt416-647Brq [facility] HospitalComment on above: Performed By: #### CBC #### [facility] [address] [place] [address] Dr. Toy MacarioRBC3.00 106/ulCritically low4.20-5.40The [facility] HospitalComment on above:Performed By: #### CBC #### [facility] [address] [place] [address] Dr. Toy MacarioWBC5.8 103/ulNormal4.0-11.0The [facility] HospitalComment on above: Performed By: #### CBC #### [facility] [address] [place] [address] Dr. Toy MacarioLIPASEon 72-24-4689Imxmjy [Catalytic activity/Vol]519.0 U/L Critically high23.0-300.0The [facility] HospitalComment on above:Performed By: #### LIPA, CMP #### [facility] [address] [place] [address] Dr. Toy MacarioPOINT [facility] GLUCOSEon 54-91-7615Ysyyvco [Mass/Vol]104 mg/dL Lccoju78-201Kqr [facility] HospitalComment on above:Performed By: #### CVDTBH #### [facility] [address] [place] [address] Dr. Toy MacarioGlucose [Mass/Vol]105 mg/aOMszzyg92-310Xxx [facility] Comment on above:Performed By: #### LIPA, CMP #### [facility] [address] [place] [address] Dr. Toy MacarioGlucose [Mass/Vol]109 mg/dLCritically mtiq33-825Uvl [facility] HospitalComment on above:Performed By: #### OBIA #### [facility] [address] [place] [address] Dr. Toy MacarioPROF 14(COMP METB)on 44-88-1511Bbnxzbi [Mass/Vol]1.8 g/dL Critically low3.5-5.0The [facility] HospitalComment on above:Performed By: #### LIPA, CMP #### [facility] [address] [place] [address] Dr. Toy MacarioAlbumin/Globulin [Mass ratio]0.4 {ratio}NormalThe [facility] HospitalComment on above:Performed By: #### LIPA, CMP #### [facility] [address] [address] [address] Toy Garcia [Catalytic activity/Vol]67 U/BHrnfgz58-611Zxt [facility] HospitalComment on above:Performed By: #### LIPA, CMP #### [facility] [address] [address] [address] Toy Ojeda [Catalytic activity/Vol]17 U/LNormal9-52The [facility] Comment on above:Performed By: #### LIPA, CMP #### [facility] [address] [address] [address] Toy Pichardoon gap [Moles/Vol]8.9 mmol/LNormalThe [facility] HospitalComment on above:Performed By: #### LIPA, CMP #### [facility] [facility] [address] [address] [address] Toy MacarioAST [Catalytic activity/Vol]15 U/QJtysgv24-59Pnf [facility] HospitalComment on above:Performed By: #### LIPA, CMP #### [facility] [address] [address] [address] Toy MacarioBilirubin [Mass/Vol]0.3 mg/dLNormal0.2-1.3TCincinnati [facility] Comment on above:Performed By: #### LIPA, CMP #### [facility] [address] [address] [address] Toy MacarioCalcium [Mass/Vol]8.8 mg/dLNormal8.4-10.2[facility] Comment on above:Performed By: #### LIPA, CMP #### [facility] [address] [address] [address] Toy MacarioChloride [Moles/Vol]105 mmol/ZItljvg28-806Axb [facility] Comment on above:Performed By: #### LIPA, CMP #### [facility] [address] [address] [address] Toy MacarioCO2 [Moles/Vol]27.3 mmol/IDochyj05.0-30.0[facility] Comment on above:Performed By: #### LIPA, CMP #### [facility] [address] [place] [address] Dr. Toy MacarioCreatinine [Mass/Vol]0.56 mg/dLNormal0.52-1.04The [facility] HospitalComment on above:Performed By: #### LIPA, CMP #### [facility] [address] [place] [address] Dr. Toy SpringerGFR-AF ST LUCIAN>60Normal>=60The [facility] HospitalComment on above:Performed By: #### LIPA, CMP #### [facility] [address] [place] [address] Dr. Toy Bell-NON AF [facility] LUCIAN>60Normal>=60The [facility] HospitalComment on above:Performed By: #### LIPA, CMP #### [facility] [address] [place] [address] Dr. Toy MacarioGlobulin (S) [Mass/Vol]4.5 g/dLNormalThe [facility] HospitalComment on above:Performed By: #### LIPA, CMP #### [facility] [address] [place] [address] Dr. Toy MacarioGlucose [Mass/Vol]103 mg/wGMsbeol22-640ZknThe [facility] Comment on above:Performed By: #### LIPA, CMP #### [facility] [address] [place] [address] Dr. Toy MacarioPotassium [Moles/Vol]3.2 mmol/LCritically low3.4-5.0The [facility] HospitalComment on above:Performed By: #### LIPA, CMP #### [facility] [address] [place] [address] Dr. Toy MacarioProtein [Mass/Vol]6.3 g/dLNormal6.1-8.2The [facility] Comment on above:Performed By: #### LIPA, CMP #### [facility] [address] [place] [address] Dr. Toy Tracyum [Moles/Vol]138 mmol/GGvfmhj000-439Maf [facility] Comment on above:Performed By: #### LIPA, CMP #### [facility] [address] [place] [address] Dr. Toy Metzger nitrogen [Mass/Vol]7.0 mg/dLNormal7.0-17.0The [facility] HospitalComment on above:Performed By: #### LIPA, CMP #### [facility] [address] [place] [address] Dr. Toy Metzger nitrogen/Creatinine [Mass ratio]12.5 mg/mgNormalThe [facility] HospitalComment on above:Performed By: #### LIPA, CMP #### [facility] [address] [place] [address] Dr. Toy Stubbs AUTO DIFFon [id number] #0.0 103/ulNormal0.0-0.1The [facility] HospitalComment on above:Performed By: #### CMP, LIPA #### [facility] [address] [place] [address] Dr. Toy MacarioBasophils/100 WBC (Bld)0.8 %Normal0.2-2.0[facility] Comment on above:Performed By: #### CMP, LIPA #### [facility] [address] [place] [address] Dr. Toy Forbes #0.1 103/ulNormal0.0-0.7The [facility] HospitalComment on above: Performed By: #### CMP, LIPA #### [facility] [address] [place] [address] Dr. Toy Springerosinophils/100 WBC (Bld)1.9 %Normal0.9-7.0The [facility] Comment on above:Performed By: #### CMP, LIPA #### [facility] [address] [place] [address] Dr. Toy Springerrythrocyte distribution width (RBC) [Ratio]14.0 %Qrodig57.0-15.0 The [facility] HospitalComment on above:Performed By: #### CMP, LIPA #### [facility] [address] [place] [address] Dr. Toy Crumatogiovannat (Bld) [Volume fraction]27.6 %Critically low36.0-48.0 The [facility] HospitalComment on above:Performed By: #### CMP, LIPA #### [facility] [address] [place] [address] Dr. Toy MacarioHemoglobin (Bld) [Mass/Vol]8.5 g/dLCritically low12.0-16.0The [facility] HospitalComment on above:Performed By: #### CMP, LIPA #### [facility] [address] [place] [address] Dr. Toy Daniel #0.03 10e3/ulNormal0.00-0.03The [facility] HospitalComment on above:Performed By: #### CMP, LIPA #### [facility] [address] [place] [address] Dr. Toy Daniel %0.6 %Critically high0.0-0.5The [facility] HospitalComment on above:Performed By: #### CMP, LIPA #### [facility] [address] [place] [address] Dr. Toy Cool #1.0 103/ulCritically low1.2-3.8The [facility] Comment on above:Performed By: #### CMP, LIPA #### [facility] [address] [place] [address] Dr. Toy Weisshocytes/100 WBC (Bld)17.9 %Critically low20.5-60.0The [facility] HospitalComment on above:Performed By: #### CMP, LIPA #### [facility] [address] [place] [address] Dr. Toy LongUAL DIFF REQNONormalThe [facility] HospitalComment on above: Performed By: #### CMP, LIPA #### [facility] [address] [place] [address] Dr. Toy Greene (RBC) [Entitic mass]27.4 dkXvnxsk37.7-34.0The [facility] HospitalComment on above:Performed By: #### CMP, LIPA #### [facility] [address] [place] [address] Dr. Toy Singletary (RBC) [Mass/Vol]30.8 g/aRStetvm14.9-35.2The [facility] HospitalComment on above:Performed By: #### CMP, LIPA #### [facility] [address] [place] [address] Dr. Toy Singletary (RBC) [Entitic vol]89.0 kRPeiqah00.0-99.0The [facility] HospitalComment on above:Performed By: #### CMP, LIPA #### [facility] [address] [place] [address] Dr. Toy Cha #0.4 103/ulNormal0.3-0.8The [facility] HospitalComment on above:Performed By: #### CMP, LIPA #### [facility] [address] [place] [address] Dr. Toy Diazocytes/100 WBC (Bld)7.7 %Normal1.7-12.0The [facility] Comment on above:Performed By: #### CMP, LIPA #### [facility] [address] [place] [address] Dr. Toy Rader #3.8 103/ulNormal1.4-6.5The [facility] HospitalComment on above:Performed By: #### CMP, LIPA #### [facility] [address] [place] [address] Dr. Toy Estevesutrophils/100 WBC (Bld)71.1 %Pdcvhj19.0-75.0The [facility] HospitalComment on above:Performed By: #### CMP, LIPA #### [facility] [address] [place] [address] Dr. Toy Frairelet mean volume (Bld) [Entitic vol]9.4 fLCritically low 9.5-13.5The [facility] on above:Performed By: #### CMP, LIPA #### [facility] [address] [place] [address] Dr. Toy MacarioPLT259 103/dbNfdslc607-442Uba [facility] HospitalCom[facility] on above: Performed By: #### CMP, LIPA #### [facility] [address] [place] [address] Dr. Toy MacarioRBC3.10 106/ulCritically low4.20-5.40The [facility] HospitalCom[facility] on above:Performed By: #### CMP, LIPA #### [facility] [address] [place] [address] Dr. Toy MacarioWBC5.3 103/ulNormal4.0-11.0The [facility] on above: Performed By: #### CMP, LIPA #### [facility] [address] [place] [address] Dr. Toy MacarioLIPASEon 20-34-2341Bjblol [Catalytic activity/Vol]447.0 U/L Critically high23.0-300.0The [facility] on above:Performed By: #### CMP, LIPA #### [facility] [address] [place] [address] Dr. Toy MacarioLIFEBRITE [facility] GLUCOSEon [id number] [Mass/Vol]107 mg/dL Critically ccpt68-114Nzg [facility] on above:Performed By: #### LIPA, CMP #### [facility] [address] [place] [address] Dr. Toy MacarioPROF 14(COMP METB)on [id number] [Mass/Vol]1.8 g/dL Critically low3.5-5.0The [facility] on above:Performed By: #### CMP, LIPA #### [facility] [address] [place] [address] Dr. Toy MacarioAlbumin/Globulin [Mass ratio]0.4 {ratio}NormalThe [facility] HospitalCom[facility] on above:Performed By: #### CMP, LIPA #### [facility] [address] [address] [address] Toy Garcia [Catalytic activity/Vol]81 U/LBaqntl34-866Jmk [facility] HospitalComment on above:Performed By: #### CMP, LIPA #### [facility] [address] [address] [address] Toy LyonsT [Catalytic activity/Vol]27 U/LNormal9-52The [facility] Comment on above:Performed By: #### CMP, LIPA #### [facility] [address] [address] [address] Toy Pichardoon gap [Moles/Vol]9.3 mmol/LNormalThe [facility] HospitalComment on above:Performed By: #### CMP, LIPA #### [facility] [address] [address] [address] Toy MacarioAST [Catalytic activity/Vol]21 U/WCywiej06-47Boj [facility] HospitalComment on above:Performed By: #### CMP, LIPA #### [facility] [address] [address] [address] Toy MacarioBilirubin [Mass/Vol]0.3 mg/dLNormal0.2-1.3TCinc[facility] Comment on above:Performed By: #### CMP, LIPA #### [facility] [address] [address] [address] Toy MacarioCalcium [Mass/Vol]9.0 mg/dLNormal8.4-10.2[facility] Comment on above:Performed By: #### CMP, LIPA #### [facility] [address] [address] [address] Toy MacarioChloride [Moles/Vol]105 mmol/RGutdlk47-766Wfq [facility] Comment on above:Performed By: #### CMP, LIPA #### [facility] [address] [address] [address] Toy MacarioCO2 [Moles/Vol]27.9 mmol/FWcpgqc15.0-30.0The [facility] Comment on above:Performed By: #### CMP, LIPA #### [facility] [address] [address] [address] Toy MacarioCreatinine [Mass/Vol]0.61 mg/dLNormal0.52-1.04The [facility] HospitalComment on above:Performed By: #### CMP, LIPA #### [facility] [address] [address] [address] Toy SpringerGFR-AF ST LUCIAN>60Normal>=60The [facility] HospitalComment on above:Performed By: #### CMP, LIPA #### [facility] [address] [address] [address] Toy SpringerGFR-NON AF [facility] LUCIAN>60Normal>=60The [facility] HospitalComment on above:Performed By: #### CMP, LIPA #### [facility] [address] [address] [address] Toy MacarioGlobulin (S) [Mass/Vol]4.8 g/dLNormalThe [facility] HospitalComment on above:Performed By: #### CMP, LIPA #### [facility] [address] [address] [address] Toy MacarioGlucose [Mass/Vol]107 mg/dLCritically tkpc46-909Gxw [facility] HospitalComment on above:Performed By: #### CMP, LIPA #### [facility] [address] [address] [address] Toy MacarioPotassium [Moles/Vol]3.2 mmol/LCritically low3.4-5.0The [facility] HospitalComment on above:Performed By: #### CMP, LIPA #### [facility] [address] [address] [address] Toy MacarioProtein [Mass/Vol]6.6 g/dLNormal6.1-8.2The [facility] Comment on above:Performed By: #### CMP, LIPA #### [facility] [address] [address] [address] Toy MacarioSodium [Moles/Vol]139 mmol/UVeuyjf508-913Iae [facility] Comment on above:Performed By: #### CMP, LIPA #### [facility] [address] [place] [address] Dr. Toy Metzger nitrogen [Mass/Vol]6.0 mg/dLCritically low7.0-17.0The [facility] HospitalComment on above:Performed By: #### CMP, LIPA #### [facility] [address] [place] [address] Dr. Toy Metzger nitrogen/Creatinine [Mass ratio]9.8 mg/mgNormalThe [facility] HospitalComment on above:Performed By: #### CMP, LIPA #### [facility] [address] [place] [address] Dr. Toy Stubbs AUTO DIFFon [id number] #0.0 103/ulNormal0.0-0.1The [facility] HospitalComment on above:Performed By: #### LIPA, CMP #### [facility] [address] [place] [address] Dr. Toy MacarioBasophils/100 WBC (Bld)0.6 %Normal0.2-2.0[facility] Comment on above:Performed By: #### LIPA, CMP #### [facility] [address] [place] [address] Dr. Toy Forbes #0.1 103/ulNormal0.0-0.7The [facility] HospitalComment on above: Performed By: #### LIPA, CMP #### [facility] [address] [place] [address] Dr. Toy Springerosinophils/100 WBC (Bld)1.8 %Normal0.9-7.0The [facility] Comment on above:Performed By: #### LIPA, CMP #### [facility] [address] [place] [address] Dr. Toy Springerrythrocyte distribution width (RBC) [Ratio]14.0 %Rmcvpo53.0-15.0 The [facility] HospitalComment on above:Performed By: #### LIPA, CMP #### [facility] [address] [place] [address] Dr. Toy MacarioHematocrit (Bld) [Volume fraction]27.9 %Critically low36.0-48.0 The [facility] HospitalComment on above:Performed By: #### LIPA, CMP #### [facility] [address] [place] [address] Dr. Toy MacarioHemoglobin (Bld) [Mass/Vol]8.5 g/dLCritically low12.0-16.0The [facility]Comment on above:Performed By: #### LIPA, CMP #### [facility] [address] [place] [address] Dr. Toy Daniel #0.03 10e3/ulNormal0.00-0.03The [facility] HospitalComment on above:Performed By: #### LIPA, CMP #### [facility] [address] [place] [address] Dr. Toy Daniel %0.4 %Normal0.0-0.5The [facility] HospitalComment on above: Performed By: #### LIPA, CMP #### [facility] [address] [place] [address] Dr. Toy Cool #1.0 103/ulCritically low1.2-3.8The [facility] Comment on above:Performed By: #### LIPA, CMP #### [facility] [address] [place] [address] Dr. Toy Weisshocytes/100 WBC (Bld)14.3 %Critically low20.5-60.0The [facility] HospitalComment on above:Performed By: #### LIPA, CMP #### [facility] [address] [place] [address] Dr. Toy LongUAL DIFF REQNONormalThe [facility] HospitalComment on above: Performed By: #### LIPA, CMP #### [facility] [address] [place] [address] Dr. Toy Greene (RBC) [Entitic mass]27.5 ihVitbvj37.7-34.0The [facility] HospitalComment on above:Performed By: #### LIPA, CMP #### [facility] [address] [place] [address] Dr. Toy Singletary (RBC) [Mass/Vol]30.5 g/cUNalebr09.9-35.2The [facility] HospitalComment on above:Performed By: #### LIPA, CMP #### [facility] [address] [place] [address] Dr. Toy Singletary (RBC) [Entitic vol]90.3 rLNxtcob41.0-99.0The [facility] HospitalComment on above:Performed By: #### LIPA, CMP #### [facility] [address] [place] [address] Dr. Toy Cha #0.5 103/ulNormal0.3-0.8The [facility] HospitalComment on above:Performed By: #### LIPA, CMP #### [facility] [address] [place] [address] Dr. Toy Diazocytes/100 WBC (Bld)6.8 %Normal1.7-12.0The [facility] Comment on above:Performed By: #### LIPA, CMP #### [facility] [address] [place] [address] Dr. Toy Rader #5.4 103/ulNormal1.4-6.5The [facility] HospitalComment on above:Performed By: #### LIPA, CMP #### [facility] [address] [place] [address] Dr. Toy Estevesutrophils/100 WBC (Bld)76.1 %Critically high43.0-75.0The [facility] HospitalComment on above:Performed By: #### LIPA, CMP #### [facility] [address] [place] [address] Dr. Toy Frairelet mean volume (Bld) [Entitic vol]9.6 fLNormal9.5-13.5The [facility] HospitalComment on above:Performed By: #### LIPA, CMP #### [facility] [address] [address] [address] Toy MacarioPLT253 103/pbQcqnjf310-670Vrm [facility] on above: Performed By: #### LIPA, CMP #### [facility] [address] [place], [place] [address] Dr. Toy MacarioRBC3.09 106/ulCritically low4.20-5.40The [facility] HospitalCom[facility] on above:Performed By: #### LIPA, CMP #### [facility] [address] [place], [place] [address] Dr. Toy MacarioWBC7.1 103/ulNormal4.0-11.0The [facility] on above: Performed By: #### LIPA, CMP #### [facility] [address] [place] [address] Dr. Toy MacarioCT ABD/PELV W CONon [id number] ABD/PELV W CONEXAMINATION: CT ABD/PELV W CON, 04/18/2021 9:28 AM [...] Electronically authenticated by: URIEL GUILLEN Date: 2021-04-18 12:55NormOhioHealth Grady Memorial HospitalLIPASEon [id number] [Catalytic activity/Vol]330.0 U/L Critically high23.0-300.0The [facility] HospitalComment on above:Performed By: #### CMP, LIPA #### [facility] [address] [place] [address] Dr. Toy Thompson BLD IMMUNOASSAYon 61-14-1089NZHZJF BLOODNegativeNormal NEGATIVEThe [facility] HospitalComment on above:Performed By: #### OBIA #### [facility] [address] [place] [address] Dr. Toy MacarioPOINT OF CARE GLUCOSEon 40-09-0476Mlakuhw [Mass/Vol]110 mg/dL Critically klpq81-489Yxp [facility] HospitalComment on above:Performed By: #### CBC #### [facility] [address] [place] [address] Dr. Toy MacarioGlucose [Mass/Vol]103 mg/cXGxzupq66-404LklThe [facility] Comment on above:Performed By: #### CMP, LIPA #### [facility] [address] [place] [address] Dr. Toy MacarioGlucose [Mass/Vol]112 mg/dLCritically dmfl71-419Fiw [facility] HospitalComment on above:Performed By: #### LIPA, CMP #### [facility] [address] [address] [address] Toy Stokes 14(COMP METB)on 26-59-1670Tztqsyu [Mass/Vol]1.7 g/dL Critically low3.5-5.0The [facility] HospitalComment on above:Performed By: #### CMP, LIPA #### [facility] [address] [place] [address] Dr. Toy MacarioAlbumin/Globulin [Mass ratio]0.4 {ratio}NormalThe [facility] HospitalComment on above:Performed By: #### CMP, LIPA #### [facility] [address] [place] [address] Dr. Toy Garcia [Catalytic activity/Vol]65 U/QDctqdc94-572Nde [facility] HospitalComment on above:Performed By: #### CMP, LIPA #### [facility] [address] [place] [address] Dr. Toy Ojeda [Catalytic activity/Vol]15 U/LNormal9-52[facility] Comment on above:Performed By: #### CMP, LIPA #### [facility] [address] [place] [address] Dr. Toy Rosenberg gap [Moles/Vol]11.4 mmol/LNormalThe [facility] Comment on above:Performed By: #### CMP, LIPA #### [facility] [address] [place] [address] Dr. Toy MacarioAST [Catalytic activity/Vol]11 U/LCritically gka71-52Vnl [facility] Hospitalment on above:Performed By: #### CMP, LIPA #### [facility] [address] [place] [address] Dr. Toy MacarioBilirubin [Mass/Vol]0.3 mg/dLNormal0.2-1.3TCincinnati [facility] Comment on above:Performed By: #### CMP, LIPA #### [facility] [address] [address] [address] Toy MacarioCalcium [Mass/Vol]8.7 mg/dLNormal8.4-10.2The [facility] Comment on above:Performed By: #### CMP, LIPA #### [facility] [address] [address] [address] Toy MacarioChloride [Moles/Vol]106 mmol/TLdmwzd56-958Bzd [facility] Comment on above:Performed By: #### CMP, LIPA #### [facility] [address] [place] [address] Dr. Toy MacarioCO2 [Moles/Vol]27.1 mmol/SHbehbb92.0-30.0The [facility] Comment on above:Performed By: #### CMP, LIPA #### [facility] [address] [place] [address] Dr. Toy MacarioCreatinine [Mass/Vol]0.60 mg/dLNormal0.52-1.04The [facility] HospitalComment on above:Performed By: #### CMP, LIPA #### [facility] [address] [place] [address] Dr. Toy SpringerGFR-AF ST LUCIAN>60Normal>=60The [facility] HospitalComment on above:Performed By: #### CMP, LIPA #### [facility] [address] [place] [address] Dr. Toy SpringerGFR-NON AF [facility] LUCIAN>60Normal>=60The [facility] HospitalComment on above:Performed By: #### CMP, LIPA #### [facility] [address] [place] [address] Dr. Toy MacarioGlobulin (S) [Mass/Vol]4.6 g/dLNormalThe [facility] HospitalComment on above:Performed By: #### CMP, LIPA #### [facility] [address] [place] [address] Dr. Toy MacarioGlucose [Mass/Vol]110 mg/dLCritically lunx57-331Wff [facility] HospitalComment on above:Performed By: #### CMP, LIPA #### [facility] [address] [address] [address] Toy MacarioPotassium [Moles/Vol]3.5 mmol/LNormal3.4-5.0The [facility] Comment on above:Performed By: #### CMP, LIPA #### [facility] [address] [address] [address] Toy MacarioProtein [Mass/Vol]6.3 g/dLNormal6.1-8.2The [facility] Comment on above:Performed By: #### CMP, LIPA #### [facility] [address] [place] [address] Dr. Toy Luevanodium [Moles/Vol]141 mmol/PYtbfic078-328Lnx [facility] Comment on above:Performed By: #### CMP, LIPA #### [facility] [address] [place] [address] Dr. Toy MacarioUrea nitrogen [Mass/Vol]10.0 mg/dLNormal7.0-17.0The [facility] HospitalComment on above:Performed By: #### CMP, LIPA #### [facility] [address] [place] [address] Dr. Toy Metzger nitrogen/Creatinine [Mass ratio]16.7 mg/mgNormalThe [facility] HospitalComment on above:Performed By: #### CMP, LIPA #### [facility] [address] [place] [address] Dr. Toy Stubbs AUTO DIFFon [id number] #0.1 103/ulNormal0.0-0.1The [facility] HospitalComment on above:Performed By: #### CMP, LIPA #### [facility] [address] [place] [address] Dr. Toy MacarioBasayphils/100 WBC (Bld)0.6 %Normal0.2-2.0[facility] Comment on above:Performed By: #### CMP, LIPA #### [facility] [facility] [address] [place] [address] Dr. Toy Forbes #0.1 103/ulNormal0.0-0.7The [facility] HospitalComment on above: Performed By: #### CMP, LIPA #### [facility] [address] [place] [address] Dr. Toy Springerosinophils/100 WBC (Bld)1.6 %Normal0.9-7.0[facility] Comment on above:Performed By: #### CMP, LIPA #### [facility] [address] [place] [address] Dr. Toy Springerrythrocyte distribution width (RBC) [Ratio]14.4 %Kchqhr94.0-15.0 [facility] HospitalComment on above:Performed By: #### CMP, LIPA #### [facility] [address] [place] [address] Dr. Toy MacarioHematocrit (Bld) [Volume fraction]28.5 %Critically low36.0-48.0 The [facility] HospitalComment on above:Performed By: #### CMP, LIPA #### [facility] [address] [place] [address] Dr. Toy MacarioHemoglobin (Bld) [Mass/Vol]8.7 g/dLCritically low12.0-16.0The [facility] HospitalComment on above:Performed By: #### CMP, LIPA #### [facility] [address] [place] [address] Dr. Toy Daniel #0.06 10e3/ulCritically high0.00-0.03[facility] Comment on above:Performed By: #### CMP, LIPA #### [facility] [address] [place] [address] Dr. Toy Daniel %0.7 %Critically high0.0-0.5ThSycamore Medical CenterComment on above:Performed By: #### CMP, LIPA #### [facility] [address] [place] [address] Dr. Toy Cool #1.1 103/ulCritically low1.2-3.8The [facility] Comment on above:Performed By: #### CMP, LIPA #### [facility] [address] [place] [address] Dr. Toy Ohmphocytes/100 WBC (Bld)12.2 %Critically low20.5-60.0The [facility] HospitalComment on above:Performed By: #### CMP, LIPA #### [facility] [address] [place] [address] Dr. Toy LongUAL DIFF REQNONormalThe [facility] HospitalComment on above: Performed By: #### CMP, LIPA #### [facility] [address] [place] [address] Dr. Toy Singletary (RBC) [Entitic mass]27.6 qyBcfvhr24.7-34.0The [facility] HospitalComment on above:Performed By: #### CMP, LIPA #### [facility] [address] [place] [address] Dr. Toy Singletary (RBC) [Mass/Vol]30.5 g/zCTdaxes01.9-35.2The [facility] HospitalComment on above:Performed By: #### CMP, LIPA #### [facility] [address] [place] [address] Dr. Toy Singletary (RBC) [Entitic vol]90.5 uJIhounn62.0-99.0The [facility] HospitalComment on above:Performed By: #### CMP, LIPA #### [facility] [address] [place] [address] Dr. Toy Cha #0.6 103/ulNormal0.3-0.8The [facility] HospitalComment on above:Performed By: #### CMP, LIPA #### [facility] [address] [place] [address] Dr. Toy Diazocytes/100 WBC (Bld)7.2 %Normal1.7-12.0The [facility] Comment on above:Performed By: #### CMP, LIPA #### [facility] [address] [place] [address] Dr. Yilan ChangNEUT #6.7 103/ulCritically high1.4-6.5The [facility] Comment on above:Performed By: #### CMP, LIPA #### [facility] [address] [place] [address] Dr. Toy Estevesutrophils/100 WBC (Bld)77.7 %Critically high43.0-75.0The [facility] HospitalComment on above:Performed By: #### CMP, LIPA #### [facility] [address] [place] [address] Dr. Toy MacarioPlatelet mean volume (Bld) [Entitic vol]9.4 fLCritically low 9.5-13.5The [facility] HospitalComment on above:Performed By: #### CMP, LIPA #### [facility] [address] [place] [address] Dr. Toy MacarioPLT272 103/stRegycj998-115Dos [facility] HospitalComment on above: Performed By: #### CMP, LIPA #### [facility] [address] [place] [address] Dr. Toy MacarioRBC3.15 106/ulCritically low4.20-5.40The [facility] HospitalComment on above:Performed By: #### CMP, LIPA #### [facility] [address] [place] [address] Dr. Toy MacarioWBC8.6 103/ulNormal4.0-11.0The [facility] HospitalComment on above: Performed By: #### CMP, LIPA #### [facility] [address] [place] [address] Dr. Toy Martin URINEon [id number] URINEIsolate 1 Escherichia coli >100,000 cfu/mL of ORGANISM 1 Escherichia coli ANTIBIOTIC M.I.C RX STATUS Ampicillin >=32 R F Ampicillin/Sulbactam 4 S F Piperacillin/Tazobactam <=4 S F Cefazolin <=4 S F Ceftazidime <=1 S F Ceftriaxone <=1 S F Ertapenem <=0.5 S F Imipenem <=0.25 S F Amikacin <=2 S F Gentamicin <=1 S F Tobramycin <=1 S F Ciprofloxacin <=0.25 S F Levofloxacin <=0.12 S F Nitrofurantoin <=16 S F Trimethoprim/Sulfamethoxazole >=320 R FNormalThe [facility] HospitalComment on above:Performed By: #### CVDTBH #### [facility] [address] [place] [address] Dr. Toy MacarioLIPASEon 27-34-7442Owlkaa [Catalytic activity/Vol]374.0 U/L Critically high23.0-300.0The [facility] HospitalComment on above:Performed By: #### LIPA, CMP #### [facility] [address] [place] [address] Dr. Toy MacarioPOINT OF CARE GLUCOSEon 14-57-1801Cdjuzvn [Mass/Vol]108 mg/dL Critically thxb04-220TexThe Jewish HospitalComment on above:Performed By: #### LIPA, CMP #### [facility] [address] [place] [address] Dr. Toy MacarioGlucose [Mass/Vol]105 mg/iQCrldcw07-583ErmThe [facility] Comment on above:Performed By: #### CMP, LIPA #### [facility] [address] [place] [address] Dr. Toy MacarioGlucose [Mass/Vol]99 mg/lKNltvqq71-759WxeThe [facility] Comment on above:Performed By: #### CBC #### [facility] [address] [place] [address] Dr. Toy MacarioGlucose [Mass/Vol]96 mg/zYYudbnn31-795UvyThe [facility] Comment on above:Performed By: #### LIPA, CMP #### [facility] [address] [place] [address] Dr. Toy MacarioPROAraceli 14(COMP METB)on 23-91-8895Bqhbsus [Mass/Vol]1.9 g/dL Critically low3.5-5.0The [facility] HospitalComment on above:Performed By: #### LIPA, CMP #### [facility] [address] [address] [address] Toy MacarioAlbumin/Globulin [Mass ratio]0.4 {ratio}NormalThe Jewish HospitalComment on above:Performed By: #### LIPA, CMP #### [facility] [address] [address] [address] Toy LyonsP [Catalytic activity/Vol]68 U/UCswyva49-511Kay [facility] HospitalComment on above:Performed By: #### LIPA, CMP #### [facility] [address] [address] [address] Toy LyonsT [Catalytic activity/Vol]21 U/LNormal9-52[facility] Comment on above:Performed By: #### LIPA, CMP #### [facility] [address] [place] [address] Dr. Toy Pichardoon gap [Moles/Vol]14.2 mmol/LNormalThe [facility] Comment on above:Performed By: #### LIPA, CMP #### [facility] [address] [place] [address] Dr. Toy MacarioAST [Catalytic activity/Vol]13 U/LCritically rqm61-57Ves [facility] HospitalComment on above:Performed By: #### LIPA, CMP #### [facility] [address] [place] [address] Dr. Toy MacarioBilirubin [Mass/Vol]0.5 mg/dLNormal0.2-1.3TCincinnati [facility] Comment on above:Performed By: #### LIPA, CMP #### [facility] [address] [place] [address] Dr. Toy MacarioCalcium [Mass/Vol]8.6 mg/dLNormal8.4-10.2[facility] Comment on above:Performed By: #### LIPA, CMP #### [facility] [address] [place] [address] Dr. Toy MacarioChloride [Moles/Vol]106 mmol/ICkkwik61-654KoqThe [facility] Comment on above:Performed By: #### LIPA, CMP #### [facility] [address] [address] [address] Toy MacarioCO2 [Moles/Vol]26.3 mmol/QOdpore07.0-30.0The [facility] Comment on above:Performed By: #### LIPA, CMP #### [facility] [address] [address] [address] Toy MacarioCreatinine [Mass/Vol]0.78 mg/dLNormal0.52-1.04The [facility] HospitalComment on above:Performed By: #### LIPA, CMP #### [facility] [address] [address] [address] Yeager ChangEGFR-AF ST LUCIAN>60Normal>=60The [facility] HospitalComment on above:Performed By: #### LIPA, CMP #### [facility] [address] [place] [address] Dr. Toy SpringerGFR-NON AF [facility] LUCIAN>60Normal>=60The [facility] HospitalComment on above:Performed By: #### LIPA, CMP #### [facility] [address] [address] [address] Toy MacarioGlobulin (S) [Mass/Vol]4.5 g/dLNormalThe [facility] HospitalComment on above:Performed By: #### LIPA, CMP #### [facility] [address] [place] [address] Dr. Toy MacarioGlucose [Mass/Vol]89 mg/eNKecvlj75-771SwjThe [facility] Comment on above:Performed By: #### LIPA, CMP #### [facility] [address] [place] [address] Dr. Toy MacarioPotassium [Moles/Vol]3.4 mmol/LNormal3.4-5.0[facility] Comment on above:Performed By: #### LIPA, CMP #### [facility] [address] [place] [address] Dr. Toy MacarioProtein [Mass/Vol]6.4 g/dLNormal6.1-8.2The [facility] Comment on above:Performed By: #### LIPA, CMP #### [facility] [address] [place] [address] Dr. Toy Luevanodium [Moles/Vol]143 mmol/SWeiilg256-518Ifb [facility] Comment on above:Performed By: #### LIPA, CMP #### [facility] [address] [place] [address] Dr. Toy Metzger nitrogen [Mass/Vol]9.0 mg/dLNormal7.0-17.0The [facility] HospitalComment on above:Performed By: #### LIPA, CMP #### [facility] [address] [place] [address] Dr. Toy Metzger nitrogen/Creatinine [Mass ratio]11.5 mg/mgNormalThe [facility] HospitalComment on above:Performed By: #### LIPA, CMP #### [facility] [address] [place] [address] Dr. Toy Stubbs AUTO DIFFon [id number] #0.1 103/ulNormal0.0-0.1The [facility] HospitalComment on above:Performed By: #### CMP, LIPA #### [facility] [address] [place] [address] Dr. Toy Batemanphils/100 WBC (Bld)0.4 %Normal0.2-2.0[facility] Comment on above:Performed By: #### CMP, LIPA #### [facility] [address] [place] [address] Dr. Toy Forbes #0.0 103/ulNormal0.0-0.7The [facility] HospitalComment on above: Performed By: #### CMP, LIPA #### [facility] [address] [place] [address] Dr. Toy Springerosinophils/100 WBC (Bld)0.3 %Critically low0.9-7.0The [facility] HospitalComment on above:Performed By: #### CMP, LIPA #### [facility] [address] [place] [address] Dr. Yilan ChangErythrocyte distribution width (RBC) [Ratio]14.1 %Naqpsc59.0-15.0 The [facility] HospitalComment on above:Performed By: #### CMP, LIPA #### [facility] [address] [place] [address] Dr. Toy MacarioHematocrit (Bld) [Volume fraction]31.9 %Critically low36.0-48.0 The [facility] HospitalComment on above:Performed By: #### CMP, LIPA #### [facility] [address] [place] [address] Dr. Toy MacarioHemoglobin (Bld) [Mass/Vol]9.9 g/dLCritically low12.0-16.0The [facility] HospitalComment on above:Performed By: #### CMP, LIPA #### [facility] [address] [place] [address] Dr. Toy Daniel #0.08 10e3/ulCritically high0.00-0.03The [facility] Comment on above:Performed By: #### CMP, LIPA #### [facility] [address] [place] [address] Dr. Toy Daniel %0.7 %Critically high0.0-0.5The [facility] HospitalComment on above:Performed By: #### CMP, LIPA #### [facility] [address] [place] [address] Dr. Toy WeissH #0.9 103/ulCritically low1.2-3.8The [facility] Comment on above:Performed By: #### CMP, LIPA #### [facility] [address] [place] [address] Dr. Toy Ohmphocytes/100 WBC (Bld)7.8 %Critically low20.5-60.0The [facility] HospitalComment on above:Performed By: #### CMP, LIPA #### [facility] [address] [place] [address] Dr. Toy LongUAL DIFF REQNONormalThe [facility] HospitalComment on above: Performed By: #### CMP, LIPA #### [facility] [address] [place] [address] Dr. Toy Singletary (RBC) [Entitic mass]27.5 bbZaedjv17.7-34.0The [facility] HospitalComment on above:Performed By: #### CMP, LIPA #### [facility] [address] [place] [address] Dr. Toy Singletary (RBC) [Mass/Vol]31.0 g/sBQykqfe87.9-35.2The [facility] HospitalComment on above:Performed By: #### CMP, LIPA #### [facility] [address] [place] [address] Dr. Toy Singletary (RBC) [Entitic vol]88.6 bMVgscql51.0-99.0The [facility] HospitalComment on above:Performed By: #### CMP, LIPA #### [facility] [address] [place] [address] Dr. Toy Cha #0.6 103/ulNormal0.3-0.8The [facility] HospitalComment on above:Performed By: #### CMP, LIPA #### [facility] [address] [place] [address] Dr. Toy Diazocytes/100 WBC (Bld)5.3 %Normal1.7-12.0[facility] Comment on above:Performed By: #### CMP, LIPA #### [facility] [address] [place] [address] Dr. Toy Rader #10.0 103/ulCritically high1.4-6.5The [facility] Comment on above:Performed By: #### CMP, LIPA #### [facility] [address] [place] [address] Dr. Toy Mayophils/100 WBC (Bld)85.5 %Critically high43.0-75.0The [facility] HospitalComment on above:Performed By: #### CMP, LIPA #### [facility] [address] [place] [address] Dr. Toy Frairelet mean volume (Bld) [Entitic vol]9.3 fLCritically low 9.5-13.5The [facility] HospitalComment on above:Performed By: #### CMP, LIPA #### [facility] [address] [place] [address] Dr. Toy MacarioPLT321 103/ulRaizpn146-469Ukc [facility] HospitalComment on above: Performed By: #### CMP, LIPA #### [facility] [address] [place] [address] Dr. Toy MacarioRBC3.60 106/ulCritically low4.20-5.40The [facility] HospitalComment on above:Performed By: #### CMP, LIPA #### [facility] [address] [place] [address] Dr. Toy MacarioWBC11.7 103/ulCritically high4.0-11.0The [facility] HospitalComment on above:Performed By: #### CMP, LIPA #### [facility] [address] [place] [address] Dr. Toy MacarioLIPASEon 90-62-1545Dwnyhl [Catalytic activity/Vol]667.0 U/L Critically high23.0-300.0The [facility] HospitalComment on above:Performed By: #### OBIA #### [facility] [address] [place] [address] Dr. Toy MacarioLIFEBRITE COMM[facility] GLUCOSEon 08-78-1822Ebnxlrc [Mass/Vol]89 mg/dL Hlvqxa66-777Qeh [facility] HospitalComment on above:Performed By: #### OBIA #### [facility] [address] [place] [address] Dr. Toy MacarioGlucose [Mass/Vol]92 mg/zHKmklwy53-883RasThe [facility] Comment on above:Performed By: #### LIPA, CMP #### [facility] [address] [place] [address] Dr. Toy MacarioGlucose [Mass/Vol]100 mg/xMNwkmog52-019QucThe [facility] Comment on above:Performed By: #### CVDTBH #### [facility] [address] [address] [address] Toy MacarioPROF 14(COMP METB)on 46-59-6037Pqqqbvm [Mass/Vol]1.9 g/dL Critically low3.5-5.0The [facility] HospitalComment on above:Performed By: #### OBIA #### [facility] [address] [place] [address] Dr. Toy MacarioAlbumin/Globulin [Mass ratio]0.4 {ratio}NormalThe [facility] HospitalComment on above:Performed By: #### OBIA #### [facility] [address] [place] [address] Dr. Toy Garcia [Catalytic activity/Vol]69 U/APiitnl42-071Pdq [facility] HospitalComment on above:Performed By: #### OBIA #### [facility] [address] [place] [address] Dr. Toy LyonsT [Catalytic activity/Vol]27 U/LNormal9-52The [facility] Comment on above:Performed By: #### OBIA #### [facility] [address] [place] [address] Dr. Toy Rosenberg gap [Moles/Vol]13.5 mmol/LNormalThe [facility] Comment on above:Performed By: #### OBIA #### [facility] [address] [place] [address] Dr. Toy MacarioAST [Catalytic activity/Vol]20 U/KFmesro68-81Cdn [facility] HospitalComment on above:Performed By: #### OBIA #### [facility] [address] [place] [address] Dr. Toy MacarioBilirubin [Mass/Vol]0.6 mg/dLNormal0.2-1.3The [facility] Comment on above:Performed By: #### OBIA #### [facility] [address] [place] [address] Dr. Toy MacarioCalcium [Mass/Vol]8.7 mg/dLNormal8.4-10.2The [facility] Comment on above:Performed By: #### OBIA #### [facility] [address] [address] [address] Toy MacarioChloride [Moles/Vol]106 mmol/HHhefdq02-177Qbr [facility] Comment on above:Performed By: #### OBIA #### [facility] [address] [address] [address] Toy MacarioCO2 [Moles/Vol]24.7 mmol/MNnbbgb05.0-30.0The [facility] Comment on above:Performed By: #### OBIA #### [facility] [address] [address] [address] Toy MacarioCreatinine [Mass/Vol]0.92 mg/dLNormal0.52-1.04The [facility] HospitalComment on above:Performed By: #### OBIA #### [facility] [address] [address] [address] Toy SpringerGFR-AF [facility] LUCIAN>60Normal>=60The [facility] HospitalComment on above:Performed By: #### OBIA #### [facility] [address] [address] [address] Toy SpringerGFR-NON AF [facility] LUCI[facility]>60Normal>=60The [facility] HospitalComment on above:Performed By: #### OBIA #### [facility] [address] [address] [address] Toy MacarioGlobulin (S) [Mass/Vol]4.7 g/dLNormalThe [facility] HospitalComment on above:Performed By: #### OBIA #### [facility] [address] [address] [address] Toy MacarioGlucose [Mass/Vol]126 mg/dLCritically hmgt12-664Uzb [facility] HospitalComment on above:Performed By: #### OBIA #### [facility] [address] [address] [address] Toy MacarioPotassium [Moles/Vol]3.2 mmol/LCritically low3.4-5.0The [facility] HospitalComment on above:Performed By: #### OBIA #### [facility] [address] [place] [address] Dr. Toy MacarioProtein [Mass/Vol]6.6 g/dLNormal6.1-8.2The [facility] Comment on above:Performed By: #### OBIA #### [facility] [address] [place] [address] Dr. Toy Luevanodium [Moles/Vol]141 mmol/AJmljki295-869Ata [facility] Comment on above:Performed By: #### OBIA #### [facility] [address] [place] [address] Dr. Toy MacarioUrea nitrogen [Mass/Vol]8.0 mg/dLNormal7.0-17.0The [facility] HospitalComment on above:Performed By: #### OBIA #### [facility] [address] [place] [address] Dr. Toy Metzger nitrogen/Creatinine [Mass ratio]8.7 mg/mgNormalThe [facility] HospitalComment on above:Performed By: #### OBIA #### [facility] [address] [place] [address] Dr. Toy MacarioAMYLASEon 28-50-6336Wvyknyf [Catalytic activity/Vol]97 U/LNormal 31-110The [facility] HospitalComment on above:Performed By: #### CMP, LIPA #### [facility] [address] [place] [address] Dr. Toy Stubbs AUTO DIFFon [id number] #0.1 103/ulNormal0.0-0.1The [facility] HospitalComment on above:Performed By: #### CBC #### [facility] [address] [place] [address] Dr. Toy MacarioBasayphils/100 WBC (Bld)0.5 %Normal0.2-2.0[facility] Comment on above:Performed By: #### CBC #### [facility] [address] [place] [address] Dr. Toy Forbes #0.0 103/ulNormal0.0-0.7The [facility] HospitalComment on above: Performed By: #### CBC #### [facility] [address] [place] [address] Dr. Toy Springerosinophils/100 WBC (Bld)0.3 %Critically low0.9-7.0The [facility] HospitalComment on above:Performed By: #### CBC #### [facility] [address] [place] [address] Dr. Toy Springerrythrocyte distribution width (RBC) [Ratio]13.9 %Bfmcqv61.0-15.0 The [facility] HospitalComment on above:Performed By: #### CBC #### [facility] [address] [place] [address] Dr. Toy MacarioHematocrit (Bld) [Volume fraction]34.2 %Critically low36.0-48.0 The [facility] HospitalComment on above:Performed By: #### CBC #### [facility] [address] [place] [address] Dr. Toy MacarioHemoglobin (Bld) [Mass/Vol]10.8 g/dLCritically low12.0-16.0The [facility] HospitalComment on above:Performed By: #### CBC #### [facility] [address] [place] [address] Dr. Toy Daniel #0.05 10e3/ulCritically high0.00-0.03[facility] Comment on above:Performed By: #### CBC #### [facility] [address] [place] [address] Dr. Toy Daniel %0.4 %Normal0.0-0.5The [facility] HospitalComment on above: Performed By: #### CBC #### [facility] [address] [place] [address] Dr. Toy WeissH #0.9 103/ulCritically low1.2-3.8The [facility] Comment on above:Performed By: #### CBC #### [facility] [address] [place] [address] Dr. Toy Ohmphocytes/100 WBC (Bld)8.4 %Critically low20.5-60.0The [facility] HospitalComment on above:Performed By: #### CBC #### [facility] [address] [place] [address] Dr. Toy Costello DIFF REQNONormalThe [facility] HospitalComment on above: Performed By: #### CBC #### [facility] [address] [place] [address] Dr. Toy Singletary (RBC) [Entitic mass]28.1 uyLpvqvw51.7-34.0The [facility] HospitalComment on above:Performed By: #### CBC #### [facility] [address] [place] [address] Dr. Toy Singletary (RBC) [Mass/Vol]31.6 g/pLYkcypg80.9-35.2The [facility] HospitalComment on above:Performed By: #### CBC #### [facility] [address] [place] [address] Dr. Toy Singletary (RBC) [Entitic vol]88.8 wGJkjtrq93.0-99.0The [facility] HospitalComment on above:Performed By: #### CBC #### [facility] [address] [place] [address] Dr. Toy Cha #0.7 103/ulNormal0.3-0.8The [facility] HospitalComment on above:Performed By: #### CBC #### [facility] [address] [place] [address] Dr. Toy Diazocytes/100 WBC (Bld)6.3 %Normal1.7-12.0[facility] Comment on above:Performed By: #### CBC #### [facility] [address] [place] [address] Dr. Toy Rader #9.4 103/ulCritically high1.4-6.5The [facility] Comment on above:Performed By: #### CBC #### [facility] [address] [address] [address] Toy Estevesutrophils/100 WBC (Bld)84.1 %Critically high43.0-75.0The [facility] HospitalComment on above:Performed By: #### CBC #### [facility] [address] [place] [address] Dr. Toy MacarioPlatelet mean volume (Bld) [Entitic vol]9.1 fLCritically low 9.5-13.5The [facility] HospitalComment on above:Performed By: #### CBC #### [facility] [address] [place] [address] Dr. Toy MacarioPLT361 103/zoUersor495-960Tag [facility] HospitalComment on above: Performed By: #### CBC #### [facility] [address] [place] [address] Dr. Toy MacarioRBC3.85 106/ulCritically low4.20-5.40The [facility] HospitalComment on above:Performed By: #### CBC #### [facility] [address] [place] [address] Dr. Toy MacarioWBC11.2 103/ulCritically high4.0-11.0The [facility] HospitalComment on above:Performed By: #### CBC #### [facility] [address] [place] [address] Dr. Toy MacarioCT ABD/PELV W CONon 06-12-0901YC ABD/PELV W CONEXAMINATION: CT ABD/PELV W CON, 04/15/2021 10:48 AM [...] Electronically authenticated by: URIEL GUILLEN Date: 2021-04-15 11:33NormOhioHealth Grady Memorial HospitalCULTURE BLOODon [id number] examination of blood, cultureCulture Observations: NO GROWTH AT 5 DAYS.NormalThe [facility] HospitalComment on above:Performed By: #### CVDTB #### [facility] [address] [place] [address] Dr. Toy Pena-19 PCR ([facility])on 10-10-4454NMOV-CoV-2 (COVID-19) RNA PITO+probe Ql (Unsp spec)Not detectedNormalNOT DETECTEDThe [facility] Comment on above:Result Comment: When diagnostic testing is negative, the [...] for this test is supported by the [place] [employer] of Health and Human Service's declaration that circumstances exist to justify the emergency use of in vitro diagnostics for the detection and/or diagnosis of the virus that causes COVID-19. This EUA will remain in effect for the duration of the COVID-19 declaration justifying emergency of IVDs, unless it is terminated or revoked by the FDA (after which the test may no longer be used).Performed By: #### CBC #### [facility] [address] [place] [address] Dr. Toy Gordon URINE PROFILEon 70-71-5200Qzscchoxp Ql (U)NegativeNormal NEGATIVEThe Jewish HospitalComment on above:Performed By: #### CMP, LIPA #### [facility] [address] [place] [address] Dr. Toy MacarioClluis (U)CLOUDYAbnormalCLEARThe [facility] HospitalComment on above:Performed By: #### CMP, LIPA #### [facility] [address] [place] [address] Dr. Toy Rivas (U)YELLOWNormalYELLOWThe Jewish HospitalComment on above: Performed By: #### CMP, LIPA #### [facility] [address] [place] [address] Dr. Toy Schreiber micrscopic examination will be performed if indicated. NormalThe [facility] HospitalComment on above:Performed By: #### CMP, LIPA #### [facility] [address] [place] [address] Dr. Toy MacarioGlucose Ql (U)NegativeNormalNEGATIVEThe Jewish HospitalComment on above:Performed By: #### CMP, LIPA #### [facility] [address] [place] [address] Dr. Toy MacarioHemoglobin Ql (U)SMALLAbnormalNEGATIVEThe [facility] Comment on above:Performed By: #### CMP, LIPA #### [facility] [address] [place] [address] Dr. Toy Mills Ql (U)15 mg/dlAbnormalNEGATIVEThe [facility] on above:Performed By: #### CMP, LIPA #### [facility] [address] [place] [address] Dr. Toy FarnsworthOCYTESTRACEAbnormalNEGATIVEThe [facility] HospitalComment on above:Performed By: #### CMP, LIPA #### [facility] [address] [place] [address] Dr. Toy Canotrdaria Ql (U)NegativeNormalNEGATIVEThe [facility] HospitalComment on above:Performed By: #### CMP, LIPA #### [facility] [address] [place] [address] Dr. Toy MacariopH (U)6.0 [pH]Normal5-9The [facility] HospitalComment on above: Performed By: #### CMP, LIPA #### [facility] [address] [place] [address] Dr. Toy MacarioProtein (U) [Mass/Vol]100 mg/dLAbnormalNEGATIVE/ TRACEThe [facility] HospitalComment on above:Performed By: #### CMP, LIPA #### [facility] [address] [place] [address] Dr. Toy MacarioSPEC GRAVITY1.100Bkxxhs9.005-<=1.025The [facility] HospitalComment on above:Performed By: #### CMP, LIPA #### [facility] [address] [place] [address] Dr. Toy España MICRO INDINDICATEDNormalThe [facility] HospitalComment on above: Performed By: #### CMP, LIPA #### [facility] [address] [place] [address] Dr. Toy Olsongen Qn (U)1.0 {Lisha'U}/dLNormal0.2 - 1.0The [facility] HospitalComment on above:Performed By: #### CMP, LIPA #### [facility] [address] [place] [address] Dr. Toy MacarioLIPASEon 36-54-5706Aszxjt [Catalytic activity/Vol]929.0 U/L Critically high23.0-300.0The [facility] HospitalComment on above:Performed By: #### CMP, LIPA #### [facility] [address] [place] [address] Dr. Toy Ramires PROFILEon 24-15-7064Wxcvenx [Mass/Vol]2.3 g/dLCritically low3.5-5.0The [facility] HospitalComment on above:Performed By: #### CMP, LIPA #### [facility] [address] [place] [address] Dr. Toy MacarioAlbumin/Globulin [Mass ratio]0.5 {ratio}NormalThe [facility] HospitalComment on above:Performed By: #### CMP, LIPA #### [facility] [address] [place] [address] Dr. Toy Garcia [Catalytic activity/Vol]73 U/KTrwwtw20-609Wng [facility] HospitalComment on above:Performed By: #### CMP, LIPA #### [facility] [address] [place] [address] Dr. Toy Ojeda [Catalytic activity/Vol]29 U/LNormal9-52The [facility] Comment on above:Performed By: #### CMP, LIPA #### [facility] [address] [place] [address] Dr. Toy MacarioAST [Catalytic activity/Vol]21 U/AKpahzh64-74Ucx [facility] HospitalComment on above:Performed By: #### CMP, LIPA #### [facility] [address] [place] [address] Dr. Toy Patel, CONJUGATED0.1 mg/dLNormal0.0-0.3The [facility] Comment on above:Performed By: #### CMP, LIPA #### [facility] [address] [place] [address] Dr. Toy Molinairubin [Mass/Vol]0.4 mg/dLNormal0.2-1.3TCincinnati [facility]rin[facility] Comment on above:Performed By: #### CMP, LIPA #### [facility] [address] [place] [address] Dr. Toy MacarioGlobulin (S) [Mass/Vol]5.1 g/dLNormalThe [facility] HospitalComment on above:Performed By: #### CMP, LIPA #### [facility] [address] [place] [address] Dr. Toy MacarioProtein [Mass/Vol]7.4 g/dLNormal6.1-8.2The [facility] Comment on above:Performed By: #### CMP, LIPA #### [facility] [address] [place] [address] Dr. Toy MacarioPREGNANCY URon 97-00-5802OTJDVCOIN, QUALNegativeNormalNEGATIVEThe [facility] HospitalComment on above:Performed By: #### PREGU #### [facility] [address] [place] [address] Dr. Toy MacarioPROF CHEM 8 (BAS METB)on 34-69-5218Umflc gap [Moles/Vol]10.5 mmol/LNormalThe Jewish HospitalComment on above:Performed By: #### CMP, LIPA #### [facility] [address] [place] [address] Dr. Toy MacarioCalcium [Mass/Vol]9.0 mg/dLNormal8.4-10.2[facility] Comment on above:Performed By: #### CMP, LIPA #### [facility] [address] [place] [address] Dr. Toy MacarioChloride [Moles/Vol]102 mmol/VNjzyko75-334XzfThe [facility] Comment on above:Performed By: #### CMP, LIPA #### [facility] [address] [place] [address] Dr. Toy MacarioCO2 [Moles/Vol]27.5 mmol/BLyxcdi89.0-30.0[facility] Comment on above:Performed By: #### CMP, LIPA #### [facility] [address] [address] [address] Toy MacarioCreatinine [Mass/Vol]0.68 mg/dLNormal0.52-1.04The [facility] on above:Performed By: #### CMP, LIPA #### [facility] [address] [address] [address] Yeager ChangEGFR-AF ST LUCIAN>60Normal>=60The [facility] HospitalComment on above:Performed By: #### CMP, LIPA #### [facility] [address] [address] [address] Toy SpringerGFR-NON AF ST LUCIAN>60Normal>=60The [facility] on above:Performed By: #### CMP, LIPA #### [facility] [address] [address] [address] Toy MacarioGlucose [Mass/Vol]137 mg/dLCritically sumv81-604Ots [facility] on above:Performed By: #### CMP, LIPA #### [facility] [address] [address] [address] Toy MacarioPotassium [Moles/Vol]3.5 mmol/LNormal3.4-5.0The [facility] Comment on above:Performed By: #### CMP, LIPA #### [facility] [address] [address] [address] Toy MacarioSodium [Moles/Vol]139 mmol/JLchylw134-797Pgg [facility] Comment on above:Performed By: #### CMP, LIPA #### [facility] [address] [address] [address] Toy MacarioUrea nitrogen [Mass/Vol]7.0 mg/dLNormal7.0-17.0The [facility] on above:Performed By: #### CMP, LIPA #### [facility] [address] [address] [address] Toy MacarioUrea nitrogen/Creatinine [Mass ratio]10.3 mg/mgNormalThe [facility] HospitalComment on above:Performed By: #### CMP, LIPA #### [facility] [address] [address] [address] Toy Bowden MICROSCOPIC ONLYon 20-38-5219PPXQQUURR CRYSTALSMODERATE NormalThe [facility] HospitalComment on above:Performed By: #### CMP, LIPA #### [facility] [address] [address] [address] Toy TorresSMALLAbnormalNONE SEENWadsworth-Rittman Hospital on above:Performed By: #### CMP, LIPA #### [facility] [address] [address] [address] Toy Torres identified Cx Nom (U)INDICATEDSelect Medical [facility] Clinic Rehabilitation Hospital, Edwin ShawCombronson methodist hospital on above:Performed By: #### CMP, LIPA #### [facility] [address] [place] [address] Dr. Toy Clark SEENPutnam County Memorial HospitalalNONE SEENWadsworth-Rittman Hospital on above:Performed By: #### CMP, LIPA #### [facility] [address] [place] [address] Dr. Toy Patelystals LM Nom (Urine sed)SEENAbnormalNONE SEENWadsworth-Rittman Hospital on above:Performed By: #### CMP, LIPA #### [facility] [address] [place] [address] Dr. Yeager ChangEpithelial cells LM Ql (Urine sed)FEWAbnormalNONE SEEN /RAREThe [facility] HospitalCombronson methodist hospital on above:Performed By: #### CMP, LIPA #### [facility] [address] [place] [address] Dr. Toy RainesMALLAbnormalNONE SEENWadsworth-Rittman Hospital on above:Performed By: #### CMP, LIPA #### [facility] [address] [place] [address] Dr. Toy MacarioCofpmPTC3-6Uiwgtuvu4-5Ymq [facility] on above:Performed By: #### CMP, LIPA #### [facility] [address] [place], [place] [id number] Dr. Toy MacarioWBC5-10AbnormalNONE SEENThe Jewish HospitalComment on above: Performed By: #### ANABELLE LIPA #### [facility] [address] [place] [address] Dr. Toy Stubbs AUTO DIFFon [id number] #0.1 103/ulNormal0.0-0.1The [facility] HospitalComment on above:Performed By: #### OBIA #### [facility] [address] [place] [address] Dr. Toy MacarioBasophils/100 WBC (Bld)0.6 %Normal0.2-2.0The [facility] Comment on above:Performed By: #### OBIA #### [facility] [address] [place] [address] Dr. Toy SpringerO #0.1 103/ulNormal0.0-0.7The [facility] on above: Performed By: #### OBIA #### [facility] [address] [place] [address] Dr. Toy Springerosinophils/100 WBC (Bld)0.5 %Critically low0.9-7.0The [facility] on above:Performed By: #### OBIA #### [facility] [address] [place] [address] Dr. Toy Springerrythrocyte distribution width (RBC) [Ratio]14.7 %Ckgsvr74.0-15.0 The [facility] The Jewish Hospitalment on above:Performed By: #### OBIA #### [facility] [address] [place] [address] Dr. Toy MacarioHematocrit (Bld) [Volume fraction]40.8 %Dlfzxl49.0-48.0The [facility] on above:Performed By: #### OBIA #### [facility] [address] [place] [address] Dr. Toy MacarioHemoglobin (Bld) [Mass/Vol]12.8 g/pQFsseku78.0-16.0The [facility] HospitalComment on above:Performed By: #### OBIA #### [facility] [address] [address] [address] Toy Daniel #0.04 10e3/ulCritically high0.00-0.03The [facility] Comment on above:Performed By: #### OBIA #### [facility] [address] [address] [address] Toy Daniel %0.3 %Normal0.0-0.5The [facility] HospitalComment on above: Performed By: #### OBIA #### [facility] [address] [address] [address] Toy Cool #1.0 103/ulCritically low1.2-3.8The [facility] Comment on above:Performed By: #### OBIA #### [facility] [address] [place] [address] Dr. Toy Weisshocytes/100 WBC (Bld)8.1 %Critically low20.5-60.0The [facility] HospitalComment on above:Performed By: #### OBIA #### [facility] [address] [place] [address] Dr. Toy LongUAL DIFF REQNONormalThe [facility] HospitalComment on above: Performed By: #### OBIA #### [facility] [address] [place] [address] Dr. Toy Singletary (RBC) [Entitic mass]28.1 woApybhb94.7-34.0The [facility] HospitalComment on above:Performed By: #### OBIA #### [facility] [address] [place] [address] Dr. Toy Singletary (RBC) [Mass/Vol]31.4 g/pLJwcwpb00.9-35.2The [facility] HospitalComment on above:Performed By: #### OBIA #### [facility] [address] [place] [address] Dr. Toy Singletary (RBC) [Entitic vol]89.7 sUXghcqf61.0-99.0The [facility] HospitalComment on above:Performed By: #### OBIA #### [facility] [address] [place] [address] Dr. Toy Cha #0.8 103/ulNormal0.3-0.8The [facility] HospitalComment on above:Performed By: #### OBIA #### [facility] [address] [place] [address] Dr. Toy Diazocytes/100 WBC (Bld)6.3 %Normal1.7-12.0The [facility] Comment on above:Performed By: #### OBIA #### [facility] [address] [place] [address] Dr. Toy Rader #10.0 103/ulCritically high1.4-6.5The [facility] Comment on above:Performed By: #### OBIA #### [facility] [address] [place] [address] Dr. Toy Estevesutrophils/100 WBC (Bld)84.2 %Critically high43.0-75.0The [facility] HospitalComment on above:Performed By: #### OBIA #### [facility] [address] [place] [address] Dr. Toy Frost mean volume (Bld) [Entitic vol]9.5 fLNormal9.5-13.5The [facility] HospitalComment on above:Performed By: #### OBIA #### [facility] [address] [place] [address] Dr. Toy MacarioPLT216 103/epVquglx874-934Pex [facility] HospitalComment on above: Performed By: #### OBIA #### [facility] [address] [place] [address] Dr. Toy MacarioRBC4.55 106/ulNormal4.20-5.40The [facility] HospitalComment on above:Performed By: #### OBIA #### [facility] [address] [place] [address] Dr. Toy MacarioWBC11.9 103/ulCritically high4.0-11.0The [facility] HospitalComment on above:Performed By: #### OBIA #### [facility] [address] [place], [place] [address] Dr. Toy Melgoza ABD/PELV W CONon [id number] ABD/PELV W CONEXAMINATION: CT ABD/PELV W CON HISTORY: GENERALIZED ABDOMINAL [...] Electronically authenticated by: ART NIX Date: 2021-03-19 15:19NormalThe [facility] HospitalCULTURE URINEon [id number] URINECulture Observations: LIGHT GROWTH OF MIXED GENITAL CHRSI. NO POTENTIAL PATHOGENS SEEN.NormalThe [facility] HospitalComment on above:Performed By: #### CVDTBH #### [facility] [address] [place] [address] Dr. Toy Pena-19 PCR ([facility])on [id number]-CoV-2 (COVID-19) RNA PITO+probe Ql (Unsp spec)Not detectedNormalNOT DETECTEDThe [facility] Comment on above:Result Comment: When diagnostic testing is negative, the [...] the [place] of Health and Human Service's declaration that circumstances exist to justify the emergency use of in vitro diagnostics for the detection and/or diagnosis of the virus that causes COVID-19. This EUA will remain in effect for the duration of the COVID-19 declaration justifying emergency of IVDs, unless it is terminated or revoked by the FDA (after which the test may no longer be used).Performed By: #### CMP, LIPA #### [facility] [address] [place] [address] Dr. Yeager ChangECurt URINE PROFILEon 29-73-4734Asrxgggez Ql (U)SMALLAbnormal NEGATIVEThe [facility] HospitalComment on above:Performed By: #### CVDTBH #### [facility] [address] [place] [address] Dr. Toy Giraldo (U)SL CLOUDYAbnormalCLEARThe [facility] HospitalComment on above:Performed By: #### CVDTBH #### [facility] [address] [place] [address] Dr. Yilan ChangColor (U)YELLOWNormalYELLOWThe [facility] HospitalComment on above: Performed By: #### CVDTBH #### [facility] [address] [place] [address] Dr. Toy Schreiber micrscopic examination will be performed if indicated. NormalThe Jewish HospitalComment on above:Performed By: #### CVDTBH #### [facility] [address] [place] [address] Dr. Toy MacarioGlucose Ql (U)NegativeNormalNEGATIVEThe [facility] HospitalComment on above:Performed By: #### CVDTBH #### [facility] [address] [place] [address] Dr. Toy MacarioHemoglobin Ql (U)NegativeNormalNEGATIVEUniversity Hospitals Ely[facility] Center on above:Performed By: #### CVDTBH #### [facility] [address] [place] [address] Dr. Toy MacarioKetones Ql (U)NegativeNormalNEGATIVEThe [facility] HospitalComment on above:Performed By: #### CVDTBH #### [facility] [address] [place] [address] Dr. Toy MacarioLEUKOCYTESSMALLAbnormalNEGATIVEThe [facility] HospitalComment on above:Performed By: #### CVDTBH #### [facility] [address] [place] [address] Dr. Toy MacarioNitrite Ql (U)NegativeNormalNEGATIVEThe [facility] HospitalComment on above:Performed By: #### CVDTBH #### [facility] [address] [place] [address] Dr. Toy MacariopH (U)6.0 [pH]Normal5-9The [facility] HospitalComment on above: Performed By: #### CVDTBH #### [facility] [address] [place] [address] Dr. Toy MacarioProtein (U) [Mass/Vol]30 mg/dLAbnormalNEGATIVE/ TRACEThe [facility] HospitalComment on above:Performed By: #### CVDTBH #### [facility] [address] [place] [address] Dr. Toy MacarioSPEC GRAVITY>=1.425Oltqyxxq9.005-<=1.025The [facility] Comment on above:Performed By: #### CVDTBH #### [facility] [address] [place] [address] Dr. Toy CANO INDINDICATEDSelect Medical [facility] Clinic Rehabilitation Hospital, Edwin ShawComment on above: Performed By: #### CVDTBH #### [facility] [address] [place] [address] Dr. Toy Olsongen Qn (U)1.0 {Lisha'U}/dLNormal0.2 - 1.0The [facility] HospitalComment on above:Performed By: #### CVDTBH #### [facility] [address] [place] [address] Dr. Toy Hopson AND B AGon [id number] University of Toledo Medical CenterComment on above:Result Comment: Negative for Flu A protein angiten. Infection due to Flu A cannot be ruled out. FluA angiten in the sample may be below the detection limit of the test.Performed By: #### GRACY, CMP #### [facility] [address] [place] [address] Dr. Toy MichaelUBNEGRegional Medical CenterComment on above: Result Comment: Negative for Flu B protein antigen. Infection due to Flu B cannot be ruled out. FluB antigen in the sample may be below the detection limit of the test.Performed By: #### GRACY, CMP #### [facility] [address] [place] [address] Dr. Toy Hopson AGNegativeNormalNEGATIVE SEE COMMENTThe [facility] HospitalCombronson methodist hospital on above:Performed By: #### GRACY, CMP #### [facility] [address] [place] [address] Dr. Toy Tracey AGNegativeNormalNEGATIVE SEE COMMENTThe [facility] on above:Performed By: #### LIPA, CMP #### [facility] [address] [place] [address] Dr. Toy MacarioINTERNAL CONTROLSWithin Normal LimitsNormalWithin Normal Limits The [facility] HospitalComment on above:Performed By: #### LIPA, CMP #### [facility] [address] [place] [address] Dr. Toy MacarioLIPASEon 20-88-5245Udnjgm [Catalytic activity/Vol]134.0 U/LNormal 23.0-300.0The [facility] HospitalComment on above:Performed By: #### CMP, LIPA #### [facility] [address] [place] [address] Dr. Toy MacarioPREGNANCY URon 11-03-8492LWMUEJTTL, QUALNegativeNormalNEGATIVEThe [facility] HospitalComment on above:Performed By: #### OBIA #### [facility] [address] [place] [address] Dr. Toy MacarioPROF 14(COMP METB)on 24-65-0585Agcwavz [Mass/Vol]3.3 g/dL Critically low3.5-5.0The [facility] HospitalComment on above:Performed By: #### CMP, LIPA #### [facility] [address] [place] [address] Dr. Toy MacarioAlbumin/Globulin [Mass ratio]0.8 {ratio}NormalThe [facility] HospitalCombronson [facility] on above:Performed By: #### CMP, LIPA #### [facility] [address] [place] [address] Dr. Toy Garcia [Catalytic activity/Vol]151 U/LCritically ympi72-151Lnb [facility] HospitalComment on above:Performed By: #### CMP, LIPA #### [facility] [address] [place] [address] Dr. Toy Ojeda [Catalytic activity/Vol]105 U/LCritically high9-52The [facility] HospitalComment on above:Performed By: #### CMP, LIPA #### [facility] [address] [place] [address] Dr. Toy Rosenberg gap [Moles/Vol]11.6 mmol/LNormalThe [facility] Comment on above:Performed By: #### CMP, LIPA #### [facility] [address] [address] [address] Toy MacarioAST [Catalytic activity/Vol]222 U/LCritically tosp32-50Ocf [facility] HospitalComment on above:Performed By: #### CMP, LIPA #### [facility] [address] [address] [address] Toy MacarioBilirubin [Mass/Vol]1.3 mg/dLNormal0.2-1.3TCincinnati [facility] Comment on above:Performed By: #### CMP, LIPA #### [facility] [address] [place] [address] Dr. Toy MacarioCalcium [Mass/Vol]8.8 mg/dLNormal8.4-10.2[facility] Comment on above:Performed By: #### CMP, LIPA #### [facility] [address] [place] [address] Dr. Toy MacarioChloride [Moles/Vol]107 mmol/QJekwak82-214SabThe [facility] Comment on above:Performed By: #### CMP, LIPA #### [facility] [address] [place] [address] Dr. Toy MacarioCO2 [Moles/Vol]25.7 mmol/PVhvbov03.0-30.0[facility] Comment on above:Performed By: #### CMP, LIPA #### [facility] [address] [place] [address] Dr. Toy MacarioCreatinine [Mass/Vol]0.92 mg/dLNormal0.52-1.04The [facility] HospitalComment on above:Performed By: #### CMP, LIPA #### [facility] [address] [place] [address] Dr. Toy SpringerGFR-AF ST LUCIAN>60Normal>=60The [facility] HospitalComment on above:Performed By: #### CMP, LIPA #### [facility] [address] [address] [address] Toy SpringerGFR-NON AF ST LUCIAN>60Normal>=60The [facility] HospitalComment on above:Performed By: #### CMP, LIPA #### [facility] [address] [address] [address] Toy MacarioGlobulin (S) [Mass/Vol]3.9 g/dLNormOhioHealth Grady Memorial HospitalComment on above:Performed By: #### CMP, LIPA #### [facility] [address] [address] [address] Toy MacarioGlucose [Mass/Vol]168 mg/dLCritically qwpf41-340Bze [facility] HospitalComment on above:Performed By: #### CMP, LIPA #### [facility] [address] [address] [address] Toy MacarioPotassium [Moles/Vol]4.3 mmol/LNormal3.4-5.0The [facility] Comment on above:Performed By: #### CMP, LIPA #### [facility] [address] [address] [address] Toy MacarioProtein [Mass/Vol]7.2 g/dLNormal6.1-8.2The [facility] Comment on above:Performed By: #### CMP, LIPA #### [facility] [address] [place] [address] Dr. Toy MacarioSodium [Moles/Vol]140 mmol/SQucaqw238-920Pqi [facility] Comment on above:Performed By: #### CMP, LIPA #### [facility] [address] [address] [address] Toy MacarioUrea nitrogen [Mass/Vol]8.0 mg/dLNormal7.0-17.0The [facility] HospitalComment on above:Performed By: #### CMP, LIPA #### [facility] [address] [place] [address] Dr. Toy MacarioUrea nitrogen/Creatinine [Mass ratio]8.7 mg/mgNormalThe С[facility]гей HospitalComment on above:Performed By: #### CMP, LIPA #### [facility] [address] [address] [address] Toy Bowden MICROSCOPIC ONLYon 10-39-1804OYDSPBXCTDVVFDWXLwyftldgHPNO SEENThe [facility] HospitalCombr[facility] hospital on above:Performed By: #### CVDTBH #### [facility] [address] [address] [address] Toy Torres identified Cx Nom (U)INDICATEDSelect [facility] Hospital, Edwin ShawComment on above:Performed By: #### CVDTBH #### [facility] [address] [address] [address] Toy Clark SEENNormalNONE SEENW[facility] on above:Performed By: #### CVDTBH #### [facility] [address] [place] [address] Dr. Toy Patelystals LM Nom (Urine sed)NONE SEENNormalNONE SEENWadsworth-Rittman Hospital on above:Performed By: #### CVDTBH #### [facility] [address] [address] [address] Yeager ChangEpithelial cells LM Ql (Urine sed)MODERATEAbnormalNONE SEEN /RARE [facility] HospitalCom[facility] on above:Performed By: #### CVDTBH #### [facility] [address] [place] [address] Dr. Toy CoffmanCOUSMODERATEAbnormalNONE SEENWadsworth-Rittman Hospital on above:Performed By: #### CVDTBH #### [facility] [address] [address] [address] Toy MacarioUvcxpZUQ5-49Dcrwugsc1-8CdqWadsworth-Rittman Hospital on above:Performed By: #### CVDTBH #### [facility] [address] [place] [address] Dr. Toy MacarioJmeirMCX65-33KdwmauryUADZ SEENWadsworth-Rittman Hospital on above: Performed By: #### CVDTBH #### [facility] [address] [address] [address] Toy Alamo Summaryon 80-73-6903Ajmeob SummaryHTMLBase 64 UyrxxmqtOSn1qHq+PGhlYWQ+WX2UIIMdA80eaLJcsS0BC5uACG9GVZSETYDBKF0UWH9qpKI9UZujQ9Rq biAv [file] cmR (more content not included)...[facility] HospitalConsultation/Specialist Noteon 06-97-8291Atiikqmsqqmp/Specialist NoteHOME SLEEP STUDY DATE OF STUDY: 09/10/2020 INDICATION FOR STUDY: Sleep apnea. Home sleep testing was performed without sleep staging but with continuous measurement of body position, oxygen saturations, heart rate, snore volumes, thoracic, abdominal movement and nasal flow. As sleep is not measured for zki-ze-fmrzen home testing index time consists of time [...] is advised. Uriel Stone M.D. JOB #: [id number] bk CC: Tamara Calero DO [Electronically Signed on: 09/16/2020 13:28 EDT] Uriel Stone MD [Verified on: 09/16/2020 13:28 EDT] Uriel Stone MD [Transcribed on: 09/16/2020 11:10 EDT] [facility]erep Studyon 02-83-8362Nlvdt Study [id number]#1.00[facility] Provider [place] 82-70-3453[place] Orders [id number]#1.00[facility] Provider [place] 24-37-6441Exkctasz Orders [id number]#1.00[facility] Provider [place] 60-91-7841Gttvhnbv Orders [id number]#1.00[facility] HospitalFlu A/B Ag Detectionon 59-87-8604Pyz A/B Ag DetectionSpecimen Description .NASOPHARYNGEAL SWABSpecial Requests NOT REPORTEDDirect Exam PRESUMPTIVE NEGATI VE for Influenza A + B antigens. PCR testing to confirm this result is available upon request. Specimen will be saved in the laboratory for 7 days. Please call [phone] if PCR testing is indicated. Report Status FINAL 03/11/2018Normal [facility] HospitalComment on above:Performed By: #### FLUAD ####[facility] [place] [address] Vital Signs Date TimeVital SignValuePerforming UnfxaffyzMekuckru54-65-1598 10:06-0500Body asaeer351.64 cmMatthew [employer] DO Work Phone: 1(794)688-[address] [place], [place] 3244411-05-2025 10:06-0500 Body mass index (BMI) [Ratio]37.3 kg/i5Ydagvtp [employer] DO Work Phone: 1(357)356-[address] [place], [place] 3244411-05-2025 10:06-0500 Body chtdxipwfmy70.1 [degF]Tamara Calero DO Work Phone: 8(097)377-[address] [place], [place] 3244411-05-2025 10:06-0500 Body siythu700.77 kgMatthew [employer] DO Work Phone: 8(723)795-[address] [place], [place] 3244411-05-2025 10:06-0500 Diastolic blood enbslqmu51 mm[Hg]Tamara Calero DO Work Phone: 0(424)093-[address] [place], [place] 3244411-05-2025 10:06-0500 Heart rate82 /minMattMagazingaw [employer] DO Work Phone: 4(714)743-[address] [place], [place] 3244411-05-2025 10:06-0500 Respiratory rate18 /minMattMagazingaw [employer] DO Work Phone: 9(383)855-[address] [place], [place] 3244411-05-2025 10:06-0500 SaO2% (BldA) [Mass fraction]96 %Tamara Calero DO Work Phone: [facility]11-05-2025 10:06-0500 Systolic blood mqwhwrui951 mm[Hg]Tamara Calero DO Work Phone: [facility]05-03-2025 00:25-0400 Body hahrcj280.[address] IN THE[employer] ATTENDANT-C Work Phone: 1(707)[address]05-03-2025 00:25-0400 Body gqngatgkywh07.7 [degF]Josette Kelly [employer] IN THE[employer] ATTENDANT-C Work Phone: 1(102)[address]05-03-2025 00:25-0400 Body gyfzqp750.[address] IN THE[employer] ATTENDANT-C Work Phone: 1(937)[address] [place], [place] 6449605-03-2025 00:25-0400 Diastolic blood llmnvjei17 mm[Hg]Josette Kelly [employer] IN THE[employer] ATTENDANT-C Work Phone: 1(496)[address]05-03-2025 00:25-0400 Heart rate72 /minPamela Kelly DRIVE IN THEATER ATTENDANT-C Work Phone: 1(613)[address] [place], [place] 6449605-03-2025 00:25-0400 Respiratory rate18 /minPamela Kelly DRIVE IN THEATER ATTENDANT-C Work Phone: 1(561)[address] [place], [place] 6449605-03-2025 00:25-0400 SaO2% (BldA) [Mass fraction]98 %Josette Kelly [employer] IN THE[employer] ATTENDANT-C Work Phone: 1(525)[address]05-03-2025 00:25-0400 Systolic blood zpzdcqjy20 mm[Hg]Josette Kelly DR[employer] IN THE[employer] ATTENDANT-C Work Phone: 1(740)[address]04-22-2025 15:06-0400 Body .[address] IN THE[employer] ATTENDANT-C Work Phone: 1(036)[address]04-22-2025 15:06-0400 Body mass index (BMI) [Ratio]38.1 kg/o3Yehaaw Kelly DRIVE IN THEATER ATTENDANT-C Work Phone: 1(419)483-[address] [place], [place] 3271404-22-2025 15:06-0400 Body enigxrvegdd10.5 [degF]Josettecherri Talaveramer DRIVE IN THE[employer] ATTENDANT-C Work Phone: 1(247)656-[address] [place], [place] 3271404-22-2025 15:06-0400 Body ksklyw575.[address]Pa[address] Kelly [address] IN THE[employer] ATTENDANT-C Work Phone: 1(952)950-[address] [place], [place] 3271404-22-2025 15:06-0400 Diastolic blood tybtqnlh15 mm[Hg]Josette Talaveramer DRIVE IN THE[employer] ATTENDANT-C Work Phone: 1(863)115-[address] [place], [place] 3271404-22-2025 15:06-0400 Heart rate84 /minPaolivera Kelly DRIVE IN THEATER ATTENDANT-C Work Phone: 1(543)356-[address] [place], [place] 3271404-22-2025 15:06-0400 Respiratory rate20 /minOctavioa Kelly DR[employer] IN THE[employer] ATTENDANT-C Work Phone: 1(357)501-[address] [place], [place] 3271404-22-2025 15:06-0400 SaO2% (BldA) [Mass fraction]96 %Josette Kelly [employer] IN THE[employer] ATTENDANT-C Work Phone: 1(540)845-[address] [place], [place] 3271404-22-2025 15:06-0400 Systolic blood kjgivsak98 mm[Hg]Josettecherri Talaveramer DRIVE IN THE[employer] ATTENDANT-C Work Phone: 1(478)554-[address] [place], [place] 3271404-11-2025 07:30-0400 Body xpuglvvqjbc78.5 [degF]Tamara Christopheri DO Work Phone: 1(962)130-[address] [place], [place] 3244404-11-2025 07:30-0400 Diastolic blood wfimylpr63 mm[Hg]Tamara Christopheri DO Work Phone: 1(033)365-[address] [place], [place] 3244404-11-2025 07:30-0400 Heart rate79 /minMatthew Braniecki DO Work Phone: 1(506)268-[address] [place], [place] 3244404-11-2025 07:30-0400 Respiratory rate16 /minMatthew Braniecki DO Work Phone: 1(719)252-[address] [place], [place] 3244404-11-2025 07:30-0400 SaO2% (BldA) [Mass fraction]97 %Tamara Calero DO Work Phone: 1(331)[address] [place], [place] 2862104-11-2025 07:30-0400 Systolic blood ltvyjfwc436 mm[Hg]Tamara Calero DO Work Phone: 1(859)[address] [place], [place] 2862104-09-2025 12:34-0400 Body axoszf871.64 cmMatthew Braniecki DO Work Phone: 1(617)[address] [place], [place] 2862104-08-2025 22:45-0400 Body fmsjzo852 kgMattbeckyw Warrencki DO Work Phone: 1(159)[address] [place], [place] 2862104-08-2025 16:48-0400 Body cvoxlw963.64 cmMattbeckyw Warrencki DO Work Phone: 1(337)[address] [place], [place] 2862104-08-2025 16:48-0400 Body qyncbgljuum79.9 [degF]Tamara Whitei DO Work Phone: 1(955)[address] [place], [place] 2862104-08-2025 16:48-0400 Body kgMattsatnam Kelleycki DO Work Phone: 1(767)[address] [place], [place] 2862104-08-2025 16:48-0400 Diastolic blood aaoausot12 mm[Hg]Tamara Calero DO Work Phone: 1(366)[address] [place], [place] 2862104-08-2025 16:48-0400 Heart sxfj332 /minMatthew Braniecki DO Work Phone: 1(155)[address] [place], [place] 2862104-08-2025 16:48-0400 Respiratory rate18 /minMatthew Braniecki DO Work Phone: 1(409)[address] [place], [place] 2862104-08-2025 16:48-0400 SaO2% (BldA) [Mass fraction]96 %Tamara Whitei DO Work Phone: 1(768)[address] [place], [place] 2862104-08-2025 16:48-0400 Systolic blood fjbdneyi363 mm[Hg]Tamara Whitei DO Work Phone: 1(624)[address] [place], [place] 2862101-26-2025 12:25-0500 Body .64 cmMattsatnam Whitei DO Work Phone: 1(293)[address] [place], [place] 2862101-26-2025 12:25-0500 Body mass index (BMI) [Ratio]39.7 kg/q8Ooaroecsatnam Whitei DO Work Phone: 1(633)[address] [place], [place] 2862101-26-2025 12:25-0500 Body lcmzozdpfjg19.6 [degF]Tamara Whitei DO Work Phone: 1(572)[address] [place], [place] 2862101-26-2025 12:25-0500 Body todppa914.78 kgMattsatnam Whitei DO Work Phone: 1(974)[address] [place], [place] 2862101-26-2025 12:25-0500 Diastolic blood dhylxegk35 mm[Hg]Tamara Whitei DO Work Phone: 1(739)[address] [place], [place] 2862101-26-2025 12:25-0500 Heart rate90 /minMattstanam Whitei DO Work Phone: 1(629)[address] [place], [place] 2862101-26-2025 12:25-0500 Respiratory rate18 /minMattsatnam Whitei DO Work Phone: 1(499)[address] [place], [place] 2862101-26-2025 12:25-0500 SaO2% (BldA) [Mass fraction]93 %Tamara Whitei DO Work Phone: 1(711)[address] [place], [place] 2862101-26-2025 12:25-0500 Systolic blood wymhpqam847 mm[Hg]Tamara Whitei DO Work Phone: 1(636)[address] [place], [place] 2862101-02-2025 10:01-0500 Body bxktuk150 cmJus Webster MD Work Phone: 1(475)[facility]51aiya.com01-02-2025 10:01-0500Body mass index (BMI) [Ratio]39.85 kg/t6BtloxtfJus Webster MD Work Phone: 1(500)[facility]01-02-2025 10:01-0500Body maddlxvcgfc18 [degF]Jus Webster MD Work Phone: 1(414)[facility]01-02-2025 10:01-0500Body gxlvux057.13 kgJus Webster MD Work Phone: 1(084)[facility]01-02-2025 10:01-0500Diastolic blood edpothgz17 mm[Hg]Jus Webster MD Work Phone: 1(269)[facility]01-02-2025 10:01-0500Heart rate 61 /minJus Webster MD Work Phone: 1(449)[facility]01-02-2025 10:01-0500 Respiratory rate20 /minJus Webster MD Work Phone: 1(276)[facility]01-02-2025 10:01-0342UgC0% (BldA) [Mass fraction]92 %Jus Webster MD Work Phone: 1(662)[facility]01-02-2025 10:01-0500Systolic blood anvfmjic619 mm[Hg]Jus Webster MD Work Phone: 1(976)[facility]12-09-2024 15:53-0500Diastolic blood doobousf42 mm[Hg]Tamara Calero DO Work Phone: [facility]12-09-2024 15:53-0500 Systolic blood rmadeirs77 mm[Hg]Tamara Calero DO Work Phone: [facility]12-09-2024 15:53-0500 Body ldsezw509.64 cmMattsatnam Calero DO Work Phone: [facility]12-09-2024 15:53-0500 Body mass index (BMI) [Ratio]39 kg/c2Cocurqusatnam Calero DO Work Phone: 1(419)[address]12-09-2024 15:53-0500 Body mkqiqdbowdl19.3 [degF]Tamara Calero DO Work Phone: 1(862)[address]12-09-2024 15:53-0500 Body joyazi757.76 kgMattbeckyw Abidas DO Work Phone: 1(975)[address] [place], [place] 2862112-09-2024 15:53-0500 Heart rate85 /minMattbeckyw Christopheri DO Work Phone: 1(596)[address] [place], [place] 2862112-09-2024 15:53-0500 Respiratory rate18 /minMatthew Christopheri DO Work Phone: 1(802)[address] [place], [place] 2862112-09-2024 15:53-0500 SaO2% (BldA) [Mass fraction]96 %Tamara Calero DO Work Phone: 1(918)[address] [place], [place] 2862109-26-2024 08:27-0400 Body .6 cmJus Webster MD Work Phone: 1(028)[facility]o Dykjcp35-86-9342 08:27-0400Body mass index (BMI) [Ratio]39.54 kg/e1SmfndueJus Webster MD Work Phone: 1(737)[facility]09-26-2024 08:27-0400Body fqircctadqm12.5 [degF]Jus Webster MD Work Phone: 1(304)[facility]09-26-2024 08:27-0400Body ykfget363.13 kgJus Webster MD Work Phone: 1(871)[facility]09-26-2024 08:27-0400Diastolic blood xucnpocs20 mm[Hg]Jus Webster MD Work Phone: 1(135)[facility]09-26-2024 08:27-0400Heart rate 92 /minMokatelyn Webster MD Work Phone: 1(928)[facility]09-26-2024 08:27-0400 Respiratory rate18 /minMohammakeda Webster MD Work Phone: 1(832)[facility]09-26-2024 08:27-5196YtI5% (BldA) [Mass fraction]97 %Jus Webster MD Work Phone: 1(700)[facility]09-26-2024 08:27-0400Systolic blood vazjsnzp636 mm[Hg]Jus Webster MD Work Phone: 1(810)[facility]09-10-2024 07:30-0400Body mcdywyrksor24.7 [degF][employer] ATTENDANT-C Josette Kelly Work Phone: 1(411)[address]09-10-2024 07:30-0400 Diastolic blood mm[Hg][employer] IN THE[employer] ATTENDANT-C Josette Kelly Work Phone: 1(309)[address]09-10-2024 07:30-0400 Heart rate85 /minNP-C Josette Kelly Work Phone: 1(218)[address]09-10-2024 07:30-0400 Respiratory rate18 /minNP-C Josette Kelly Work Phone: 1(477)[address] [place], [place] 6449609-10-2024 07:30-0400 SaO2% (BldA) [Mass fraction]95 %[employer] THE[employer] ATTENDANT-C Josette Kelly Work Phone: 1(362)[address] [place], [place] 6449609-10-2024 07:30-0400 Systolic blood eeiqcufs068 mm[Hg][employer] ATTENDANT-C Josette Kelly Work Phone: 1(395)483-[address] [place], [place] 3271409-09-2024 08:42-0400 Body yntyse894.5 kgNP-C Josette Kelly Work Phone: 1(831)[address] [place], [place] 6449609-05-2024 13:07-0400 Body altyha370.64 cmNP-C Josette Kelly Work Phone: 1(677)[address]09-04-2024 23:36-0400 Body lknykgfqzlu89.1 [degF][employer] ATTENDANT-C Josette Kelly Work Phone: 1(346)[address]09-04-2024 23:36-0400 Diastolic blood mm[Hg][employer] IN [employer] ATTENDANT-C Josette Kelly Work Phone: 1(832)[address]09-04-2024 23:36-0400 Heart rate75 /minNP-C Josette Kelly Work Phone: 1(852)[address] [place], [place] 6449609-04-2024 23:36-0400 Respiratory rate20 /minNP-C Josette Kelly Work Phone: 1(729)[address] [place], [place] 6449609-04-2024 23:36-0400 SaO2% (BldA) [Mass fraction]98 %[employer] IN THE[employer] ATTENDANT-C Josette Kelly Work Phone: 1(227)[address] [place], [place] 6449609-04-2024 23:36-0400 Systolic blood rqsafsof900 mm[Hg][employer] IN [employer] ATTENDANT-C Josette Kelly Work Phone: 1(302)[address] [place], [place] 6449609-04-2024 19:54-0400 Body aulwwa273.64 cmNP-C Josette Kelly Work Phone: 1(517)[address] [place], [place] 6449609-04-2024 19:54-0400 Body trlups513.5 kgNP-C Josette Kelly Work Phone: 1(270)[address] [place], [place] 6449607-25-2024 13:36-0400 Body xiqelu778.64 cmNP-C Josette Kelly Work Phone: 1(896)[address] [place], [place] 6449607-25-2024 13:36-0400 Body mass index (BMI) [Ratio]36.8 kg/m2NP-C Josette Kelly Work Phone: 1(566)[address] [place], [place] 6449607-25-2024 13:36-0400 Body yxgcvetvuwe45 [degF][employer] IN THE[employer] ATTENDANT-C Josette Kelly Work Phone: 1(511)[address] [place], [place] 6449607-25-2024 13:36-0400 Body wlaelt233.41 kgNP-C Josette Kelly Work Phone: 1(927)[address]07-25-2024 13:36-0400 Diastolic blood qvpviuez90 mm[Hg][employer] IN [employer] ATTENDANT-C Josette Kelly Work Phone: 1(109)241-[address] [place], [place] 3271407-25-2024 13:36-0400 Heart pktk596 /minNP-C Josette Talaveramer Work Phone: 1(677)[address] [place], [place] 6449607-25-2024 13:36-0400 Respiratory rate18 /minNP-C Josette Kelly Work Phone: 1(380)[address] [place], [place] 6449607-25-2024 13:36-0400 SaO2% (BldA) [Mass fraction]95 %[employer] IN THE[employer] ATTENDANT-C Josette Kelly Work Phone: 1(739)[address] [place], [place] 6449607-25-2024 13:36-0400 Systolic blood yyqtkzud700 mm[Hg][employer]IVE IN THE[employer] ATTENDANT-C Josette Kelly Work Phone: 1(571)[address] [place], [place] 6449606-27-2024 14:36-0400 Body hevoxi551.64 cmNP-C Josette Talaveramer Work Phone: 1(278)[address] [place], [place] 6449606-27-2024 14:36-0400 Body mass index (BMI) [Ratio]37.4 kg/m2NP-C Josettecherri Talaveramer Work Phone: 1(857)[address] [place], [place] 6449606-27-2024 14:36-0400 Body fzwndqamyox58.8 [degF][employer] IN THE[employer] ATTENDANT-C Josette Talaveramer Work Phone: 1(838)[address] [place], [place] 6449606-27-2024 14:36-0400 Body yzgknz360.23 kgNP-C Josette Talaveramer Work Phone: 1(399)[address] [place], [place] 6449606-27-2024 14:36-0400 Diastolic blood hraypnzy85 mm[Hg][employer] IN THE[employer] ATTENDANT-C Josettecherri Talaveramer Work Phone: 1(794)[address] [place], [place] 6449606-27-2024 14:36-0400 Heart dnan273 /minNP-C Josette Kelly Work Phone: 1(199)[address] [place], [place] 6449606-27-2024 14:36-0400 Respiratory rate18 /minNP-C Josette Kelly Work Phone: 1(310)[address] [place], [place] 6449606-27-2024 14:36-0400 SaO2% (BldA) [Mass fraction]95 %DRIVE IN THE[employer] ATTENDANT-C Josette Mandel Work Phone: [facility]06-27-2024 14:36-0400 Systolic blood suxnmtjr025 mm[Hg][employer] IN THE[employer] ATTENDANT-C Josette Mandel Work Phone: [facility]06-27-2024 08:43-0400 Diastolic blood mm[Hg]Jus Webster MD Work Phone: 1(598)[facility]06-27-2024 08:43-0400Systolic blood kcbqaluz304 mm[Hg]Jus Webster MD Work Phone: 1(891)[facility]06-27-2024 08:35-0400Body vnsumd116.6 cmJus Webster MD Work Phone: 1(892)[facility]06-27-2024 08:35-0400Body mass index (BMI) [Ratio]36.96 kg/t8MtakemnJus Webster MD Work Phone: 1(950)[facility]06-27-2024 08:35-0400Body iswptv055.87 kgJus Webster MD Work Phone: 1(355)[facility]06-27-2024 08:35-0400Heart rate 111 /minJus Webster MD Work Phone: 1(418)[facility]06-24-2024 12:39-0400Body ielhwp110.64 cmDO Tamara Calero Work Phone: [facility]06-24-2024 12:39-0400 Body xamzdzrlzxo41.2 [degF]DO Tamara Calero Work Phone: [address] [place], [place] 5835706-24-2024 12:39-0400 Body .3 kgDO Tamara Calero Work Phone: [facility]06-24-2024 12:39-0400 Diastolic blood gpazildr46 mm[Hg]DO Tamara Calero Work Phone: [address] [place], [place] 5835706-24-2024 12:39-0400 Heart rate99 /Libby Calero Work Phone: 1(815)[address]06-24-2024 12:39-0400 Respiratory rate20 /FranciscoO Tamara Calero Work Phone: 1(465)[address] [place], [place] 2862106-24-2024 12:39-0400 SaO2% (BldA) [Mass fraction]97 %DO Tamara Calero Work Phone: 1(407)[address] [place], [place] 2862106-24-2024 12:39-0400 Systolic blood oxpijpum256 mm[Hg]DO Tamara Calero Work Phone: 1(274)[address] [place], [place] 2862106-17-2024 17:24-0400 Body spxshy327.18 cmDO Tamara Calero Work Phone: 1(682)[address] [place], [place] 2862106-17-2024 17:24-0400 Body mass index (BMI) [Ratio]36.1 kg/m2DO Tamara Calero Work Phone: 1(104)[address]06-17-2024 17:24-0400 Body hijpppbibky01.8 [degF]DO Tamara Calero Work Phone: 1(543)[address]06-17-2024 17:24-0400 Body lpoatm969.49 kgDO Tamara Calero Work Phone: 1(231)[address]06-17-2024 17:24-0400 Diastolic blood eqbxyeyo09 mm[Hg]DO Tamara Calero Work Phone: 1(762)[address]06-17-2024 17:24-0400 Heart rate80 /Libby Calero Work Phone: 1(964)[address]06-17-2024 17:24-0400 Respiratory rate18 /Libby Calero Work Phone: 1(024)[address]06-17-2024 17:24-0400 SaO2% (BldA) [Mass fraction]94 %DO Tamara Calero Work Phone: [facility] [place]06-17-2024 17:24-0400 Systolic blood exxlhqxo130 mm[Hg]DO Tamara Calero Work Phone: [facility] [place]04-29-2024 10:45-0400 Body mass index (BMI) [Ratio]37.22 kg/l2VlcocHalina Lizarraga DOWEL POINTER-CNM Work Phone: [facility]04-29-2024 10:45-0400Body .6 kgHalina Lizarraga DOWEL POINTER-CNM Work Phone: [facility]04-29-2024 10:45-0400Diastolic blood umlaubfc62 mm[Hg]Halina Lizarraga DOWEL POINTER-CNM Work Phone: [facility]04-29-2024 10:45-0400Systolic blood oqwtdnqv629 mm[Hg]Halina Lizarraga DOWEL POINTER-CNM Work Phone: [facility]03-14-2024 17:14-0400Body .6 cmJus Webster MD Work Phone: 1(593)[facility]03-14-2024 17:14-0400Body mass index (BMI) [Ratio]35.67 kg/a5HvwicikJus Webster MD Work Phone: 1(088)[facility]03-14-2024 17:14-0400Body yryjuj575.25 kgJus Webster MD Work Phone: 1(091)[facility]03-14-2024 17:14-0400Diastolic blood jucvhzbs66 mm[Hg]Jus Webster MD Work Phone: 1(089)[facility]03-14-2024 17:14-0400Systolic blood tmbyavwj143 mm[Hg]Jus Webster MD Work Phone: [phone]02-19-2024 15:29-0500Body soyyst382.18 cmDO Tamara Calero Work Phone: 1(548)982-[address] [place], [place] 3244402-19-2024 15:29-0500 Body mass index (BMI) [Ratio]36.1 kg/m2DO Tamara Calero Work Phone: 5(249)615-[address] [place], [place] 3244402-19-2024 15:29-0500 Body .77 kgDO Tamara Calero Work Phone: 1(536)285-[address] [place], [place] 3244402-19-2024 15:29-0500 Diastolic blood iaiwqhry98 mm[Hg]DO Tamara Calero Work Phone: 1(077)[address]02-19-2024 15:29-0500 Heart rate84 /Libby Calero Work Phone: 1(262)[address]02-19-2024 15:29-0500 Respiratory rate14 /minDO Tamara Calero Work Phone: 0(721)4-[address] [place], [place] 3244402-19-2024 15:29-0500 SaO2% (BldA) [Mass fraction]96 %DO Tamara Calero Work Phone: 6(530)4-[address] [place], [place] 3244402-19-2024 15:29-0500 Systolic blood rridhiro377 mm[Hg]DO Tamara Calero Work Phone: 2(637)3-[address] [place], [place] 3244402-10-2024 10:20-0500 Body oimqrd481.18 cmAjacinda Lemon Other [employer] Other 02-10-2024 10:20-0500Body mass index (BMI) [Ratio] 36.33 kg/q4TtxujPriyanka Lemon Other [employer] Other 02-10-2024 10:20-0500Body yglqpsikiuc68.5 [degF]Priyanka Lemon Other [employer] Other 02-10-2024 10:20-0500Body dnbyjc240.24 kgSonjaer Lemon Other [employer] Other 02-10-2024 10:20-0500Diastolic blood jaakohfs963 mm[Hg]Priyanka eLmon Other [employer] Other 02-10-2024 10:20-0500Respiratory rate20 /minPriyanka Lemon Other [employer] Other 02-10-2024 10:20-0500Systolic blood olrbdwtg919 mm[Hg] Priyanka Lemon Other [employer] Other 12-22-2023 10:00-0500Body qcwyil068.18 cmMattbeckycecelia Micheldalton Other [facility]12-22-2023 10:00-0500 Body mass index (BMI) [Ratio]35.86 kg/d6Nnfpany Warrenvargas Other [employer] Other 12-22-2023 10:00-0500Body ijpzsl488.87 kgMattsatnam Calero Other [facility]12-22-2023 10:00-0500 Diastolic blood mm[Hg]Tamara Calero Other [facility]12-22-2023 10:00-0500 Respiratory rate20 /minMattbeckyeccelia Warrenvargas Other [employer] Other 12-22-2023 10:00-0500Systolic blood dfyyuiod100 mm[Hg] Tamara Calero Other [address] [place], [place] 5835710-17-2023 12:15-0400 Body qkzdwe084.18 cmAtetheresa Ion Other [employer] Other 10-17-2023 12:15-0400Body mass index (BMI) [Ratio] 35.36 kg/g5EmeoxPriyanka Lemon Other [employer] Other 10-17-2023 12:15-0400Body kjkmaiyuaoc58.1 [degF]Priyanka Lemon Other [employer] Other 10-17-2023 12:15-0400Body afdpbh011.42 kgPriyanka Lemon Other [employer] Other 10-17-2023 12:15-0400Diastolic blood qjxeagtv11 mm[Hg] Priyanka Lemon Other [employer] Other 10-17-2023 12:15-0400Respiratory rate18 /minPriyanka Lemon Other [employer] Other 10-17-2023 12:15-3724SdR5% (BldA) [Mass fraction]96 % Priyanka Lemon Other [employer] Other 10-17-2023 12:15-0400Systolic blood biqndalj790 mm[Hg] Priyanka Lemon Other [employer] Other 09-19-2023 14:30-0400Body geyizk761.18 cmMakiana Calero Other [employer] Other 09-19-2023 14:30-0400Body mass index (BMI) [Ratio] 35.86 kg/m4Cjyjmrnkiana Calero Other [employer] Other 09-19-2023 14:30-0400Body achstm372.87 kgMattsatnam Calero Other [employer] Other 09-19-2023 14:30-0400Diastolic blood ipvcunvz72 mm[Hg] Tamara Calero Other [employer] Other 09-19-2023 14:30-0400Respiratory rate18 /minMakiana Calero Other [employer] Other 09-19-2023 14:30-9295GfL4% (BldA) [Mass fraction]95 % Tamara Calero Other [employer] Other 09-19-2023 14:30-0400Systolic blood xepfsroy863 mm[Hg] Tamara Calero Other [employer] Other 06-21-2023 14:00-0400Body jpljec849.18 cmMattsatnam Calero Other [employer] Other 06-21-2023 14:00-0400Body mass index (BMI) [Ratio] 35.39 kg/g4JiwcepfTamara Calero Other [employer] Other 06-21-2023 14:00-0400Body jxhfcaknmjp56.2 [degF] Tamara Calero Other [employer] Other 06-21-2023 14:00-0400Body znbqoh012.51 kgMakiana Calero Other [employer] [employer] Other 06-21-2023 14:00-0400Diastolic blood wydqfjcb84 mm[Hg] Tamara Calero Other [employer] Other 06-21-2023 14:00-0400Respiratory rate20 /minMakiana Calero Other [employer] Other 06-21-2023 14:00-6770IiE5% (BldA) [Mass fraction]94 % Tamara Calero Other [employer] Other 06-21-2023 14:00-0400Systolic blood mm[Hg] Tamara Calero Other [employer] Other 03-21-2023 23:57-0400Diastolic blood bemprnhs82 mm[Hg] DO Tamara Calero Work Phone: [facility] [place]03-21-2023 23:57-0400 Heart rate94 /minDO Tamara Calero Work Phone: [facility] [place]03-21-2023 23:57-0400 Respiratory rate16 /minDO Tamara Calero Work Phone: [facility] [place]03-21-2023 23:57-0400 SaO2% (BldA) [Mass fraction]97 %DO Tamara Whitei Work Phone: 1(156)260-[address] [place], [place] 3244403-21-2023 23:57-0400 Systolic blood dnaldfjy618 mm[Hg]DO Tamara Whitei Work Phone: 1(865)546-[address] [place], [place] 3244403-21-2023 20:49-0400 Body yxhsyg211.64 cmDO Tamara Calero Work Phone: [phone]03-21-2023 20:49-0400 Body pynriivpdly97.8 [degF]DO Tamara Calero Work Phone: [facility] [place]03-21-2023 20:49-0400 Body esbvpf04.2 kgDO Tamara Calero Work Phone: 1(574)211-[address] [place], [place] 3244403-15-2023 17:00-0400 Body vafaac697.18 cmMakiana Calero Other [employer] Other 03-15-2023 17:00-0400Body mass index (BMI) [Ratio] 33.67 kg/v0BdxlvuwTamara Calero Other [employer] Other 03-15-2023 17:00-0400Body .52 kgMattsatnam Calero Other [employer] Other 2-180465-78437294-14-7733 17:00-0400Diastolic blood wyqjpjzm68 mm[Hg] Tamara Calero Other [employer] Other 03-15-2023 17:00-0400Respiratory rate20 /minMakiana Calero Other [employer] Other 03-15-2023 17:00-5903FzG7% (BldA) [Mass fraction]97 % Tamara Whiteyesenia Other [employer] Other 03-15-2023 17:00-0400Systolic blood yxkybkvd515 mm[Hg] Tamara Pearsoniecki Other [employer] Other [id number] 11:38-0400Body igxnngkkhxd89.6 [degF]DO Tamara Whitei Work Phone: 1(286)263-[address] [place], [place] 3244403-12-2023 11:38-0400 Diastolic blood unpsbbxc96 mm[Hg]DO Tamara Whitei Work Phone: 1(744)082-[address] [place], [place] 3244403-12-2023 11:38-0400 Heart rate73 /minDO Tamara Whitei Work Phone: 1(528)[address]03-12-2023 11:38-0400 SaO2% (BldA) [Mass fraction]96 %DO Tamara Whitei Work Phone: 1(271)[address]03-12-2023 11:38-0400 Systolic blood mm[Hg]DO Tamara Calero Work Phone: 1(286)0-[address] [place], [place] 3244403-12-2023 07:46-0400 Respiratory rate16 /minDO Tamara Whitei Work Phone: 1(228)305-[address] [place], [place] 3244403-08-2023 14:05-0500 Body .64 cmDO Tamara Whitei Work Phone: 1(599)313-[address] [place], [place] 3244403-08-2023 00:58-0500 Body rkkzud00.34 kgDO Tamara Whitei Work Phone: 1(291)743-[address] [place], [place] 3244403-08-2023 00:00-0500 Diastolic blood snnslrup30 mm[Hg]DO Tamara Kelleycki Work Phone: 1(376)593-[address] [place], [place] 3244403-08-2023 00:00-0500 Heart rate74 /minDO Tamara Kelleycki Work Phone: 1(852)170-[address] [place], [place] 3244403-08-2023 00:00-0500 Respiratory rate18 /minDO Tamara Kelleycki Work Phone: 1(419)732-[address] [place], [place] 3244403-08-2023 00:00-0500 SaO2% (BldA) [Mass fraction]96 %DO Tamara Calero Work Phone: 1(271)621-[address] [place], [place] 3244403-08-2023 00:00-0500 Systolic blood srujyoek203 mm[Hg]DO Tamara Calero Work Phone: 1(742)007-[address] [place], [place] 3244403-07-2023 21:11-0500 Body okkwwj057.64 cmDO Tamara Calero Work Phone: 1(321)933-[address] [place], [place] 3244403-07-2023 21:11-0500 Body raigxxxtess00.5 [degF]DO Tamara Calero Work Phone: 1(062)699-[address] [place], [place] 3244403-07-2023 21:11-0500 Body mogoqm11.4 kgDO Tamara Calero Work Phone: 1(038)[address]06-17-2022 12:30-0400 Body oakrcb147.18 cmMattsatnam Calero Other [employer] Other 06-17-2022 12:30-0400Body mass index (BMI) [Ratio] 30.07 kg/n8Pcgbrynkiana Calero Other [employer] Other 06-17-2022 12:30-0400Body ojykidflawx96.2 [degF] Tamara Calero Other [place] [employer] Other 06-17-2022 12:30-0400Body yxvhfl12.09 kgMattsatnam Calero Other [facility] Other 06-17-2022 12:30-0400Diastolic blood srnoxzma08 mm[Hg] Tamara Calero Other [employer] Other 06-17-2022 12:30-0400Respiratory rate18 /Edward Calero Other [employer] Other 06-17-2022 12:30-3623WnA1% (BldA) [Mass fraction]99 % Tamara Calero Other [employer] Other 06-17-2022 12:30-0400Systolic blood tnkvznqi073 mm[Hg] Tamara Calero Other [employer] Other 06-07-2022 14:48-0400Body [facility]exhf602.6 [facility] 14:48-0400Body mass index (BMI) [Ratio]32.77 kg/m2[facility] HospitalLydsswufOymfhGiofjj58-39-6926 14:48-0400Body ngywrqevaoh35.7 [degF][facility]06-07-2022 14:48-0400Body yocjne57.08 [facility] 08-10-2021 14:48-0400Diastolic blood kcixxkqb79 mm[Hg][facility] 08-10-2021 14:48-0400Heart rate81 /minVirginia Gay HospitalKeevmffhXzgprKgzioz11-27-6624 14:48-0400Respiratory rate16 /minue VgtsayrbRkmhoFoawxi78-86-4214 14:48-0400 SaO2% (BldA) [Mass fraction]100 %[facility] HospitalYrpovyjmUvbaqTjhyxx20-61-6928 14:48-0400 Systolic blood gxintusa720 mm[Hg][facility] HospitalXpbtrpwrYkfauIoemzr92-42-3470 05:03-0400 Body ysrqhtvynlb82.49 [degF]Roxanna Sarmiento MD Work Phone: 1(856) [phone]hVfxgow18-03-1439 05:03-0400Diastolic blood ieasjzgt39 mm[Hg]Roxanna Sarmiento MD Work Phone: 1(213) [phone]zrzMqueos95-37-0118 05:03-0400Heart rate70 /minRoxanna Sarmiento MD Work Phone: 1(216) [phone]VzigmEkppgc25-63-6936 05:03-0400Respiratory rate16 /minRoxanna Sarmiento MD Work Phone: 1(711) [phone]VrcfyRrzhad25-29-7111 05:03-5802GiC7% (BldA) [Mass fraction]97 %Roxanna Sarmiento MD Work Phone: 1(901) [phone]UqybrVzkqbu61-49-2737 05:03-0400Systolic blood jvurejzx826 mm[Hg]Roxanna Sarmiento MD Work Phone: 1(112) [phone]MmstoGudxvi17-94-8978 02:14-0400Body aaagye479.8 cm Roxanna Sarmiento MD Work Phone: 1(906) [phone]ZydrwPnnagm86-29-7419 02:14-0400Body mass index (BMI) [Ratio]30.42 kg/v1OceybRoxanna Sarmiento MD Work Phone: 1(764) [phone]EovciZqsale29-51-5606 02:14-0400Body wmluuk87.16 kg Roxanna Sarmiento MD Work Phone: 1(593) [phone]ZsdifByfkly19-82-4683 01:15-9720VjH3% (BldA) [Mass fraction]97.8 %Roxanna Sarmiento MD Work Phone: [phone]4-368784KnfbrXmxnks72-13-2546 20:20-6280MmZ3% (BldA) [Mass fraction]98.6 %Roxanna Sarmiento MD Work Phone: 1(235) [phone]DyqkiXsstpb28-55-5640 17:53-4488BsD2% (BldA) [Mass fraction]98.5 %Roxanna Sarmiento MD Work Phone: 1(940) [phone]KwzijKnsbyx69-49-8952 17:00-3558DsI5% (BldA) [Mass fraction]98.1 %Roxanna Sarmiento MD Work Phone: 1(861) [phone]pUbowtd55-75-7206 12:58-0400Body ekjrli233.1 cm Marcella Luevano APRN-VACATION PLANNER Work Phone: 1(407) [phone]ErkjrWofmth19-77-8168 12:58-0400Body mass index (BMI) [Ratio]29.99 kg/m2Marcella Luevano APRN-VACATION PLANNER Work Phone: [phone]fIupyew73-73-3248 12:58-0400Body krypqyqwkka29 [degF]Marcella Luevano APRN-VACATION PLANNER Work Phone: [phone]WytfzBfoynh18-98-9700 12:58-0400Body .16 kg Marcella Luevano APRN-VACATION PLANNER Work Phone: 1(794) [phone]yOqluqz98-72-6673 12:58-0400Diastolic blood qrxazuqe53 mm[Hg]Marcella Luevano APRN-VACATION PLANNER Work Phone: 1(860) [phone]CywfvUdmntv09-92-1321 12:58-0400Heart rate75 /minMarcella Luevano APRN-VACATION PLANNER Work Phone: 1(959) [phone]iGgbavz45-28-1029 12:58-0400Respiratory rate16 /minMarcella Luevano APRN-VACATION PLANNER Work Phone: 1(255) [phone]UdxahAmjova82-25-4362 12:58-0709NsX6% (BldA) [Mass fraction]96 %Marcella Luevano APRN-VACATION PLANNER Work Phone: 1(381) [phone]NanehZogrec37-59-5289 12:58-0400Systolic blood vwgwloie295 mm[Hg]Marcella Luevano DOWEL POINTER-VACATION PLANNER Work Phone: [phone]MwbvaTltrdi44-32-2665 11:35-0400Diastolic blood dklqfhgo41 mm[Hg]Leobardo Barry MD Work Phone: 1(133) [phone]EhencBenytd65-06-7539 11:35-0400Heart rate73 /min Leobardo Barry MD Work Phone: 1(662) [phone]ZewtcVqgqzh63-22-0477 11:35-0400Respiratory rate12 /minLeobardo Barry MD Work Phone: [phone]fRwiszy85-55-3799 11:35-3413FdR4% (BldA) [Mass fraction]99 %Leobardo Barry MD Work Phone: [phone]vvwnLuqnmr22-95-9071 11:35-0400Systolic blood kbeojzak944 mm[Hg]Leobardo Barry MD Work Phone: [phone]xYkuyim76-99-1008 11:05-0400Body infculdwzdy55.2 [degF]Leobardo Barry MD Work Phone: [phone]cWexkad82-57-3992 14:04-0400Body .9 cm Leigh Ann Candelaria DOWEL POINTER-VACATION PLANNER Work Phone: [phone]KysotTedpoz16-16-7053 14:04-0400Body mass index (BMI) [Ratio]33.39 kg/h7Ukcscwmzl Teagan DOWEL POINTER-VACATION PLANNER Work Phone: [phone]sTvnhsv24-28-6339 14:04-0400Body qvgacl86.25 kg Leigh Ann Candelaria DOWEL POINTER-VACATION PLANNER Work Phone: 1(983) [phone]uQyfqqg41-72-7215 11:45-0400Body qgmfuk824.18 cm Tamara Calero Other [employer] Other 04-04-2022 11:45-0400Body mass index (BMI) [Ratio] 32.57 kg/b0Rcqyyoz Warrenvargas Other [employer] Other 04-04-2022 11:45-0400Body ueofzs10.35 kgLevarbeckycecelia Calero Other [employer] Other 04-04-2022 11:45-0400Diastolic blood bkabvbqt87 mm[Hg] Tamara Calero Other [employer]961[employer] Other 04-04-2022 11:45-0400Respiratory rate18 /Edward Calero Other [employer] Other 04-04-2022 11:45-1039KqW4% (BldA) [Mass fraction]98 % Tamara Calero Other [employer] Other 04-04-2022 11:45-0400Systolic blood bolyrabn267 mm[Hg] Tamara Calero Other [employer] Other Encounters Encounter DateEncounter TypeCare ProviderFacilityStart: 47-86-8651viopqivnkx Tamara ChristopheriFacility:[facility]: 01-[facility]2025 End: 69-24-2083bcjxioeytkRinwbea Braniecki DO Work Phone: [facility]deStart: 01-08-2025 End: 94-95-7142Xflchzn encounter procedureJamaica Sellers DOWEL POINTER-[facility] Work Phone: Start: 70-04-0301Lxsrahslkn RecurringVivek Antoine MDGAR[facility] CredibleStart: 08-10-2024 End: 25-00-0523Ypwdnn Yoan Sarmiento MD Work Phone: [facility]: 08-06-2024 End: 92-26-8954pkfrdeeihkHBRV [facility]art: 07-06-2024 End: 51-12-6732Eblyahypt department patient visitJosette Mandel DRIVE IN THEATER ATTENDANT-C Work Phone: [facility] Work Phone: Start: 58-21-8050Hclscmgeyx RecurringJosette Mandel DRIVE IN THEATER ATTENDANT-C Work Phone: [facility]- CredibleStart: 06-25-2024 End: 87-07-7765auuwuczrvzStgjsh Sue Cramer DRIVE IN THEATER ATTENDANT-C Work Phone: [facility] Work Phone: Start: 06-25-2024 End: 21-87-4727Owsxwqo encounter procedureJosette Mandel DRIVE IN THEATER ATTENDANT-C Work Phone: [facility] Work Phone: Start: 06-19-2024 End: 56-11-8192OhvrhfIgghcwx F Osman MD Work Phone: [phone] Vascular SurgeryStart: 86-67-5287Chscycxryh RecurringJosette Mandel DRIVE IN THEATER ATTENDANT-C Work Phone: [facility] CredibleStart: 44-71-2198Kzc-patient / Non-visitMatthew Braniecki DO Work Phone: [facility] Work Phone: Start: 06-11-2024 End: 43-85-4295Sjffahmhgv and management of inpatientMatthew Braniecki DO Work Phone: [facility]-[address] [facility] Work Phone: Start: 06-11-2024 End: 10-86-7092erfmzkenxbHMQL [facility] Centertart: 79-92-0853Tajgaajunb RecurringMatthew Braniecki DO Work Phone: [facility] CredibleStart: 84-72-3636Nvmmdaivzn and management of inpatientABHISHEK [facility]: 57-09-2633Jktjianroh and management of inpatient BASHIR [facility]: 05-24-2024 End: 70-31-1329Opmssdozgy and management of inpatientDOUGLAS [facility] Hospital[facility]: 05-04-2024 End: 14-53-3296Mtwxqv Yoan Sarmiento MD Work Phone: [facility]Start: 03-31-2024 End: 92-04-5768fjfdwzzrdgVlhebal Braniecki DO Work Phone: [facility] Work Phone: Start: 03-31-2024 End: 86-42-2847Mmkcccf encounter procedureMakiana Whitei DO Work Phone: [facility] Work Phone: Start: 03-15-2024 End: 64-33-6269lnyacnxjrrTJUGDVP [facility] Start: 89-95-8605Amvgxgcrdn RecurringMakiana Whitei DO Work Phone: [facility] CredibleStart: 03-07-2024 End: 35-03-7263Pmayge outpatient visit 25 minutesJus Webster MD Work Phone: [facility] Vascular SurgeryComment on above:Cigarette smoker motivated to quit (Primary Dx); Severe claudication (CMS-HCC); 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)Start: 02-12-2024 End: 16-00-3082Byysdpi encounter procedureMakiana Whitei DO Work Phone: [facility] Work Phone: Start: 11-30-2023 End: 02-12-1089Mxovlv outpatient visit 25 minutesMokatelyn Webster MD Work Phone: [facility] Vascular SurgeryComment on above:Cigarette smoker motivated to quit (Primary Dx); Claudication (CMS-HCC)Start: 28-33-2114Xay-patient / Tup-mzgebXI-EFARNAZ Mandel Work Phone: [facility] Med OutPt Work Phone: Start: 11-08-2023 End: 07-65-6735Vhbbykmanr and management of inpatientNP-C Josette Mandel Work Phone: [phone] Work Phone: Start: 29-85-2022Fbuqzsasyn RecurringNP-C Josette Mandel Work Phone: [facility] CredibleStart: 04-67-6686Jiryjgmcfx RecurringNP-C Josette Mandel Work Phone: [facility] CredibleStart: 09-28-2023 End: 10-04-5361vqcuvdmmklFA-C Josette Talaveramer Work Phone: [facility] Work Phone: Start: 09-28-2023 End: 55-50-0175Teknhhp encounter procedureNP-C Josette Mandel Work Phone: [facility] Work Phone: Start: 23-12-4526Iriosjyrdj RecurringNP-C Josette Mandel Work Phone: [facility] CredibleStart: 08-31-2023 End: 24-76-3532jpoijkqfmmQW-C Josettecherri Talaveramer Work Phone: [facility] Work Phone: Start: 08-31-2023 End: 12-23-9221Mdurtfa encounter procedureNP-C Josettecherri Talaveramer Work Phone: [facility] Work Phone: Start: 08-31-2023 End: 53-64-2401Bcxifk outpatient new 45 minutesMokatelyn Webster MD Work Phone: [facility] Comment on above:Severe claudication ([facility]-HCC) (Primary Dx); Cigarette smoker motivated to quitStart: 08-31-2023 End: 03-23-1965riysaojcibRLLXQUNCrouse Hospital Ambulatory PPGStart: 27-55-0189Yybotjczff RecurringFARNAZ Josette Mandel Work Phone: [facility] CredibleStart: 08-28-2023 End: 06-43-4705Myufliflm department patient visitDO Tamara Calero Work Phone: [facility] Work Phone: Start: 08-21-2023 End: 81-55-4031txpzvcbrmgJH Tamara Calero Work Phone: [facility] Work Phone: Start: 08-21-2023 End: 33-37-1213Uedwcat encounter procedureDO Tamara Calero Work Phone: [facility] [place] Work Phone: Start: 46-69-4673Jceccmvleu RecurringDO Tamara Calero Work Phone: [facility] CredibleStart: 07-03-2023 End: 33-17-4298Nmrspty encounter procedureGaylmark anthony Lizarraga APRN-CNM Work Phone: [facility] CenterLayerGloss SystemStart: 07-03-2023 End: 56-18-0744Bhtxylfs preventive med est patient 40-64yrsGayla Lola Lizarraga APRN-CNM Work Phone: [facility]/GynecologyComment on above:Well woman exam with routine gynecological exam (Primary Dx); Encounter for screening mammogram for malignant neoplasm of breastStart: 07-03-2023 End: 58-23-7081cyanqbltklWPIBBUWJennie Stuart [facility] Center [facility] Start: 77-14-5179Thnbhjtxp for gynecological examination (general) (routine) without abnormal findingsMOHAMED [facility] Ambulatory PPGStart: 05-31-2023 End: 46-25-1385Vqcfsawcr Result EncounterMohamed Sherri Webster MD Work Phone: [facility] External Department UnsolicitedStart: 05-31-2023 End: 94-67-4209Nvbfxgdnz Result EncounterMohamed Sherri Webster MD Work Phone: [facility] External Department UnsolicitedStart: 05-18-2023 End: 68-26-0798psnaystvbwNGHSVMHDrew Memorial Hospital Ambulatory PPGStart: 05-18-2023 End: 80-88-6685Rsomkj outpatient new 60 minutesMokatelyn Webster MD Work Phone: [facility] Comment on above:Abnormal CT scan (Primary Dx); Cigarette smoker motivated to quit; Claudication ([facility]); Blue toe syndrome of left lower extremity ([facility])Start: 04-24-2023 End: 79-34-5493didhranbjfUG Tamara Calero Work Phone: [facility] Work Phone: Start: 04-24-2023 End: 17-93-5269Txpczzk encounter procedureDO Tamara Calero Work Phone: [facility] Work Phone: Start: 04-15-2023 End: 64-22-0604funugwcjhcPunbw Keller Other [employer] Other Start: 52-68-7821Xddrwl outpatient visit 15 minutes [facility] ClydeStart: 02-24-2023 End: 49-49-9419rnscltsofkPviahhr Braniecki Other noFilement Other Start: 40-78-1393Zzbqoy outpatient visit 25 minutes Tamara Villatoro [facility] ClintonStart: 02-24-2023 End: 14-12-8325Bihhoja encounter procedureDO Tamara Kelleyvargas Work Phone: [facility] Work Phone: Start: 64-82-0507Zbamegemcj RecurringDO Tamara Kelleyjeannayesenia Work Phone: [facility] CampusStart: 12-20-2022 End: 47-77-3518fgcgphyygyTudrv Keller Other noFilement Other Start: 86-99-8388Htntuw outpatient visit 25 minutes [facility] ClydeStart: 12-05-2022 End: 97-78-0782ytcxliygfzPwsckgp Branariellei Other [employer] Other Start: 37-69-1397Nifytzheo encounterMatthew Branariellei [place] [employer]rt: 11-22-2022 End: 05-45-3734mmuciaoojoBcuukgq Brananthonycki Other [employer] Other Start: 36-60-1828Vcyduo outpatient visit 25 minutes [facility]oA[facility] Health CentertonStart: 11-14-2022 End: 64-61-0699ovnqrgswfmDixpzdq Brananthonycki Other [employer] Other Start: 40-90-3137Ryltualrm encounterMatthew Braniecki [facility] Family [facility] ClintonStart: 11-02-2022 End: 17-47-9005kbfpgwsckgRmvhvqh Braniecki Other [employer] Other Start: 42-38-7129Fkxyhtygw encounterMatthew Braniecki [facility] Family [facility] ClintonStart: 08-24-2022 End: 80-03-9246srlnwfnnkuWhufsbp Brananthonycki Other noFilement Other Start: 63-52-6532Kpcgghygl for other specified special examinationsMattw [facility] ChildrenStart: 08-24-2022 Periodic preventive med est patient 40-64yrsMattw [facility] ChildrenStart: 79-88-5864Ibsaet Yoan Sarmiento MD Work Phone: [facility]Start: 05-30-2022 End: 29-21-4130gxiqshwiihRniiycv Brananthonycki Other [employer] Other Start: 05-37-2873Wzaudbnmx encounterMatthew Warrencki [facility] HospitalStart: 70-20-1373Xnsyxtlchp and management of inpatientDO Tamara Kelleyjeannayesenia Work Phone: [facility] Work Phone: Start: 05-24-2022 End: 09-95-1412afnqntnvlvFwqvwfo Brananthonycki Other [employer] Other Start: 01-12-6261Ezcrwyzlu encounterMatthew Brananthonycki [facility]Start: 05-18-2022 End: 63-39-3553oiwjscazkiZazgisi Braniecki Other [employer] Other Start: 08-53-0240Bovbji outpatient visit 25 minutes Tamara PearsonEmilioSaint Clare's Hospital at DenvilleStart: 05-11-2022 End: 74-02-8873jbxpnyjdqxNouclza Braniecki Other [employer] Other start: 37-51-5957Veykyxyda encounterMattsatnam Calero [facility] ClintonStart: 05-10-2022 End: 47-90-7772Igzwdodsrs and management of inpatientDO Tamara Calero Work Phone: [phone] Work Phone: Start: 26-52-5412Yxddur Yoan Sarmiento MD Work Phone: [facility]HealthStart: 03-15-2022 End: 70-70-1606fwisuttwzyYegtbut Braniecki Other [employer] Other Start: 59-70-6765Dvaawi outpatient visit 15 minutes Tamara VillatoroAstra Health CentertonStart: 03-13-2022 End: 37-61-1644ufjuprxyhjBP DOCTOR MISCFacility:Y3Bubys: 02-14-2022 End: 89-88-4041Qyqxkhyhugip consultation with Joavny Sarmiento MD Work Phone: [facility] Oncology SurgicalComment on above:NO SHOW (Primary Dx)Start: 73-44-0672unwkaqadirRZPTV M. EL HAYEKFacility:[facility] Start: 29-95-8858Dpwtbk Yoan Sarmiento MD Work Phone: [facility]HealthStart: 11-15-2021 End: 73-76-3976zdtltvyyyuBcdweul Braniecki Other [employer] Other Start: 85-53-4469Ausseirmq encounterMakiana Calero [facility] ClintonStart: 45-17-1724ghumjpfueqXntjafu Lofton RN [facility] Oncology SurgicalStart: 72-86-7460Ghwxkbbfbnxwd procedureCheryael Garcia RNMetroHealth Oncology SurgicalStart: 08-24-2021 End: 58-64-7049yrhxbdaewdJCNS PATIENTFacility:[facility]zer HospitalStart: 08-20-2021 End: 05-00-7226uwlecsnqnfXswtzvo Braniecki Other [facility] [employer] Other Start: 68-57-5757Ygrgfhfil for general adult medical examination without abnormal findingsUnited Medical Center ClintonStart: 37-89-3459Qcldjpea preventive med est patient 40-64yrsMattTooele Valley Hospital ClintonStart: 08-16-2021 End: 80-38-3638Qpnwuyeshmlh consultation with Jovany Sarmiento MD Work Phone: [facility] Oncology SurgicalComment on above:Liver cyst (Primary Dx)Start: 32-25-9568hanntcppwpSZFWA SARAIYAFacility:[facility] Start: 08-10-2021 End: 33-26-1059Fyoafv outpatient visit 25 minutesBlue Surgery Resident [facility] Surgery GeneralComment on above:Postoperative follow-up (Primary Dx); Body mass index (BMI) 32.0-32.9, adultStart: 78-43-6000Ebpiew Eduardo Strickland APRN-OSCAR Work Phone: [facility]HealthStart: 09-85-1101Lvqnrd Eduardo Strickland APRN-OSCAR Work Phone: [facility] Surgery GeneralStart: 07-30-2021 End: 36-17-1102Mffodouyxe hospital visit by Amanda Sarmiento MD Work Phone: [facility] RadiologyComment on above:ArrivedStart: 52-77-6599Drehmb Eduardo Strickland APRN-OSCAR Work Phone: [facility] RadiologyStart: 07-30-2021 End: 93-94-4730Tesnojfqwn and management of inpatientRoxanna Sarmiento MD Work Phone: Inpatient 8AComment on above:Liver cyst (Primary Dx); Cyst of gallbladder; Postoperative painStart: 54-78-8666Yblgvohpd encounterLeandra Snyder [facility] Work Phone: [facility] Medication Management ClinicComment on above:Anemia; Consult with specialistStart: 07-15-2021 End: 00-88-4687Jnyuap outpatient new 45 minutesMarcella Asifflorin DOWEL POINTER-VACATION PLANNER Work Phone: [facility] Pre-Surgical EvaluationComment on above:Preop testing (Primary Dx); Iron deficiency anemia, unspecified iron deficiency anemia type; Body mass index (BMI) 29.0-29.9, adultStart: 07-15-2021 End: 84-90-4063Dezkmft encounter Chintan Asifflorin DOWEL POINTER-VACATION PLANNER Work Phone: [facility] CenterKeko Meno Pre-Surgical EvaluationStart: 37-49-2817Dfpddr encounterRoxanna Sarmiento MD Work Phone: [facility] Surgery GeneralStart: 27-11-3546Kdwywjpaq to same day surgery Kvng Sarmiento MD Work Phone: [facility] Surgery GeneralStart: 07-02-2021 End: 66-96-3700agnzbvdanuXqiuxgx Braniecki Other [place] [employer] Other Start: 75-49-8960Omxmrespm encounterMakiana Calero [facility] Clinsaint michael's medical centerStart: 06-16-2021 End: 88-03-5845Vwhkiflgwf hospital visit by Janak Barry MD Work Phone: [facility] Multispecialty Endoscopy SuiteComment on above:Bile duct obstruction; 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Start: 06-14-2021 End: 69-95-9326cpbzjosbtwSI DOCTOR MISCFacility:N8Fsiiz: 06-11-2021 End: 50-87-2970Cypqccisq encounterLeigh Ann Candelaria APRN-VACATION PLANNER Work Phone: [facility] Pre Surgical EvaluationComment on above: ArrivedStart: 06-07-2021 End: 67-17-1170avbcnvcddxGmguqsu Abdias Other [facility] Other Start: 66-50-9584Yyznhh outpatient visit 25 minutes Tamara [facility] [place]Start: 04-16-2021 End: 83-68-9514Onpvzfsbgw and management of inpatientDR DOCTOR MISCFacility:H1 Start: 03-19-2021 End: 79-99-9199sdalmfkidkWD DOCTOR MISCFacility:W7Opsry: 03-11-2018 End: 19-96-1233Ydkdqjagd department patient visitMARY JOA JIMFostoria City Hospital Procedures DateProcedureProcedure DetailPerforming ClinicianStart: 15-15-7136Fcfuq culture Tamara Calero DO Work Phone: Start: 06-83-8466Pnnyl cultureNP-C Josette Mandel Work Phone: Start: 98-48-4867Wwhvx depression screening assessment Halina SMITHM Work Phone: Start: 92-04-7770IRHXTISLY BLOOD PRESSUREMohammakeda Webster MD Work Phone: [phone]: 48-65-5930EchkilifocaKuutyrl Osman MD Work Phone: Start: 25-29-2681Kogtnjcllae observation [Identifier] in Cervix by Cyto stainMokatelyn Webster MD Work Phone: Start: 58-98-3863ACYK Antigen (LFIA)DO Tamara Calero Work Phone: Start: 36-52-6390Frtgt cultureDO Tamara Calero Work Phone: Start: 08-03-2021 End: 34-95-3598Qhmqb of magnesiumClara Kit Mauro Hooks MD Work Phone: Start: 15-45-9422Cvpbtnl function panelClara Kit Mauro Hooks MD Work Phone: [phone]: 53-26-4488Yugfebk function panelClrachell Hooks MD Work Phone: [phone]: 08-02-2021 End: 59-83-3271Fmgco of magnesiumClara Amrit Hooks MD Work Phone: [phone]: 96-38-3406Hz abdomen & pelvis w/contrast Adrianne Carrasco MD Work Phone: [phone]: 65-89-0015Zblkmhzuxybtje time partial plasma/whole bloodClrachell Hooks MD Work Phone: [phone]: 60-23-1186Vqbtlbq function panelClara Amrit Hooks MD Work Phone: [phone]: 08-01-2021 End: 46-66-1755Waegc of magnesiumClara Amrit Hooks MD Work Phone: [phone]: 62-58-9277Busojik function panelClrachell Hooks MD Work Phone: [phone]: 07-31-2021 End: 23-61-8074Djngi of magnesiumClara Amrit Hooks MD Work Phone: [phone]: 23-21-8652Fokyh of lactateAl Mascorro MD Work Phone: [phone]: 97-84-8819Bjiru gases any combination ph pco2 po2 co2 voq8NbtzAl Mascorro MD Work Phone: [phone]: 92-17-7272Cwktblllwksgbugxg measurementAl Mascorro MD Work Phone: [phone]: 80-86-8473Wlgvoutueit up to 1 hour physician/qhp Kenneth Sarmiento MD Work Phone: [phone]: 92-67-2189Vveny of Andi Ojeda MD Work Phone: start: 59-02-6358Lrurb gases any combination ph pco2 po2 co2 exu2AgfuwvJean Ojeda MD Work Phone: [phone]: 62-55-1570Xcydgpcpbulgebdcl measurementJean Ojeda MD Work Phone: [phone]: 07-06-3931ELTXlmwxieauld Aidan SANDERSN-GAS MAIN FITTER HELPER Work Phone: [phone]: 53-42-6185WZRVCF STATUSChristopher Aidan DOWEL POINTER-GAS MAIN FITTER HELPER Work Phone: [phone]: 59-43-3140FSZ BLOOD CELL COMPONENTChristopher Aidan DOWEL POINTER-GAS MAIN FITTER HELPER Work Phone: [phone]: 43-10-2941LWL BLOOD CELL UNIT STATUSChristopher Aidan DOWEL POINTER-GAS MAIN FITTER HELPER Work Phone: [phone]: 07-30-2021 End: 76-53-3365Ntmxv of lactateChristopher Aidan DOWEL POINTER-GAS MAIN FITTER HELPER Work Phone: [phone]: 07-30-2021 End: 64-77-8325Mejpg gases any combination ph pco2 po2 co2 awp2Ziabdizqmtk Aidan DOWEL POINTER-GAS MAIN FITTER HELPER Work Phone: [phone]: 07-30-2021 End: 86-51-8169Achqhxfzycdlafttm measurementChristopher Aidan DOWEL POINTER-GAS MAIN FITTER HELPER Work Phone: [phone]: 07-30-2021 End: 05-90-1087Nlfemmabjiz of packed red blood cellsChristopher Aidan DOWEL POINTER-GAS MAIN FITTER HELPER Work Phone: [phone]: 65-03-8207Thf bact xcpt urine blood/stool aerobic Abby Sarmiento MD Work Phone: [phone]: 95-93-6091Pccxrokd examination - Denis Sarmiento MD Work Phone: [phone]: 20-42-3759FGS leukocytes reducedChristopher Aidan SANDERSN-GAS MAIN FITTER HELPER Work Phone: [phone]: 04-67-6620TIP BLOOD CELL UNIT STATUSChristopher Bermudez DOWEL POINTER-GAS MAIN FITTER HELPER Work Phone: start: 07-30-2021 End: 28-04-8874RMJGXSEVSGP, COMMON BILE DUCTRoxanna Sarmiento MD Work Phone: Start: 07-30-2021 End: 58-25-6722OVUDIENXLEY, DIAGNOSTICRoxanna Sarmiento MD Work Phone: Start: 19-45-1950Wrsad test visual color hu Sarmiento MD Work Phone: Start: 73-33-7137Zwppf typing, ABO, Rho(D) and RBC antibody screeningTexas Health Hospital Mansfield Work Phone: Start: 51-17-9506Hkonv of ferritinTexas Health Hospital Mansfield Work Phone: Start: 00-29-9386Jsnq dx collection specimen brushing/washingLeobardo Barry MD Work Phone: Start: 84-71-8468Sqtdp test visual color hu Barry MD Work Phone: Start: 63-42-0419Afpfuwivlbws of Nutritional Substance into Central Vein, Percutaneous ApproachDR DOCTOR MISCStart: 04-19-2021 Insertion of Infusion Device into Upper Vein, Percutaneous ApproachDR DOCTOR MISCStart: 07-91-0702Gelav depression screening assessmentMokatelyn Webster MD Work Phone: Start: 52-11-7234ZIOVA INFLUENZA A/B ANTIGENSMARY JOA ARTURO Plan of Treatment DateCare ActivityDetailAuthorStart: 54-18-5147QFpO,Tdap and Td Vaccines (2 - Td or Tdap)DTaP,Tdap and Td Vaccines (2 - Td or Tdap)[facility] SystemStart: 79-25-2685Yzxtrui vaccinationMetroHealthStart: 91-25-6560Gfnmfzks (RZV) Vaccine (1 of 2)Shingles (RZV) Vaccine (1 of 2)[facility]roHealthStart: 00-92-8057Lsxyq panel CholesterolMetroHealthStart: 81-34-2733Cxxohmsgu for malignant neoplasm of cervixPap SmearSelect Medical Specialty Hospital [facility] SystemStart: 89-84-8166Llksx BMI ScreeningAdult BMI ScreeningSelect Medical Specialty [facility] SystemStart: 03-07-2025 End: 64-47-8632SN.doppler Extremity arteries - bilateral for physiologic artery studyVas art doppler lwr bilat mult lev/PVR Vascular Ultrasound Routine Cigarette smoker motivated to quit Severe claudication (CMS-HCC) 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) Expected: 03/07/2025 (Approximate), Expires: 03/07/[email or web address] Work Phone: Comment on above:Expected: 03/07/2025 (Approximate), Expires: 03/07/2025Start: 56-09-3768Wadtldloh vaccinationInfluenza Vaccine (#1) [facility]HealthStart: 50-54-2584Wmjvl BMI ScreeningAdult BMI ScreeningSelect [facility] SystemStart: 73-75-0280Ajwexax ScreeningTobacco ScreeningSelect [facility] SystemStart: 82-64-7206WMDUB-19 Vaccine ( season)COVID-19 Vaccine ( season)[facility]roHealthStart: 78-51-7723Qvkyahqql vaccinationSelect [facility] SystemStart: 01-13-6847Jfups BMI ScreeningAdult BMI ScreeningSelect [facility] SystemStart: 81-69-4828Blczbhp ScreeningTobacco ScreeningSelect [facility] SystemStart: 01-19-7656Mehqp BMI Follow Up PlanAdult BMI Follow Up Plan [facility] SystemStart: 37-68-7621Fmxrr BMI ScreeningAdult BMI Screening [facility] SystemStart: 05-47-9676Jannobppwh ScreeningDepression Screening [facility] SystemStart: 71-01-9634Sfzkemi ScreeningTobacco Screening [facility] SystemStart: 32-15-2951JtuyjokexSt. Francis Hospitaltart: 35-55-6306Kehkiaea admissionSt. Francis Hospitaltart: 06-11-2024 [facility] CenterStart: 94-70-9814Ikpfl cultureWright-Patterson Medical Center CenterStart: 23-74-0828Thyszxgc identified in Urine by Culture Urine CultureSt. Francis Hospitaltart: 23-81-7756Cacwt BMI ScreeningAdult BMI ScreeningFormerly [facility]id[facility]plin Hospitaltart: 02-29-2024 End: 17-19-1900Axyncng encounter yrbyodyuo49/26/2024 8:30 AM EST Office Visit [facility] [address] [place], [place] [phone] Jus Webster MD [address], [facility] [address] [place] [address] [facility] Vascular SurgeryStart: 11-30-2023 End: 89-15-3533Vjxtxsp encounter fabwajbzy61/26/2024 8:30 AM EDT Office Visit [facility] [address] [place] [address] Jus Webster MD [address], [facility] [address] [place] [address] [facility] Wound CareStart: 72-42-0330YcgdomezsSt. Francis Hospitaltart: 66-09-7255Dmuldidg admissionSt. Francis Hospitaltart: 11-08-2023 [facility] CenterStart: 79-98-0282Blaimzfk identified in Urine by CultureWright-Patterson Medical Center CenterStart: 79-35-0995NIAUN-19 Vaccine ( season)COVID-19 Vaccine ( season)[facility]HealthStart: 99-62-1092Bcqmppqwh vaccinationInfluenza VaccineSelect [facility]ty [facility] SystemStart: 08-31-2023 End: 78-37-0901Kbizdkr encounter amttedtwb11/27/2024 9:00 AM EDT Office Visit [facility] [address] [place] [address] Jus Webster MD [address], [address] [address] [facility] Vascular Surgery and Wound CareStart: 79-63-1921Ctlidik ScreeningTobacco Screening [facility]ly [facility] Hospitaltart: 07-03-2023 End: 49-21-9627BAV Breast - bilateral screeningMammography screening bilateral with CAD Imaging Routine Encounter for screening mammogram for malignant neoplasm of breast Expected: 07/03/2023, Expires: 08/30/2024[facility] Work Phone: Comment on above:Expected: 07/03/2023, Expires: 08/30/2024Start: 04-76-7662Gadwzbyui for malignant neoplasm of breastFormerly [facility] Hospitaltart: 36-95-2544Qthfo BMI Follow Up PlanAdult BMI Follow Up Plan [facility] Hospitaltart: 05-18-2023 End: 01-36-9989TG.doppler Extremity arteries - bilateral for physiologic artery studyVas art doppler lwr bilat mult lev/PVR Vascular Ultrasound Routine Abnormal CT scan Expected: 05/18/2023, Expires: 05/17/2024ProBarberton Citizens Hospitalca Work Phone: Comment on above:Expected: 05/18/2023, Expires: 05/17/2024Start: 45-55-5428Ckqdvfaqs for malignant neoplasm of colonMetroHealth Start: 35-74-4595Ahdsmmuil vaccinationInfluenza VaccineSelect Medical Specialty [facility] System Start: 87-36-4897Hziul metabolic 2000 panel - Serum or PlasmaBasic Metabolic PanelMetroHealthStart: 49-27-6852Plmsfotbqe measurementBasic Metabolic Panel MetroHealthStart: 86-04-8502Klwvy metabolic 2000 panel - Serum or PlasmaBasic Metabolic PanelMetroHealthStart: 86-93-1863Semyr metabolic 2000 panel - Serum or PlasmaBasic Metabolic PanelMetroHealthStart: 58-81-2440Oznmw metabolic 2000 panel - Serum or PlasmaBasic Metabolic PanelMetroHealthStart: 05-25-2022 End: 38-93-6788CzfsigrjcSt. Francis Hospitaltart: 76-96-8845Kkajkhol admissionSt. Francis Hospitaltart: 11-03-7448ZepmbbxsaWright-Patterson Medical Center CenterStart: 65-72-2192FifiakjkjWright-Patterson Medical Center CenterStart: 76-90-8306Lrvfraqx admissionWright-Patterson Medical Center CenterStart: 05-11-2022 [facility] CenterStart: 25-84-6329Mehaodkx identified in Urine by CultureUrine CultureSt. Francis Hospitaltart: 00-00-4714Ldaap metabolic 2000 panel - Serum or PlasmaBasic Metabolic PanelMetroHealthStart: 89-98-6913Iihjjtueji A1c measurementHemoglobin B0CRqpyaGdnjdoYhigx: 02-14-2022 End: 87-12-5727Ebroehxiqltb consultation with bazhgid7702/14/2022 Telemedicine Oncology Surgery Roxanna Sarmiento MD [address] [place] [address] [facility] Oncology SurgicalStart: 64-67-0726Hobvpqahm vaccinationInfluenza Vaccine (#1)MetroHealthStart: 08-24-2021 End: 23-86-3399Nfdbvdz encounter /21/2022 [facility] Surgery GeneralStart: 08-16-2021 End: 81-49-4346Gaszezgrcb and management of rrbpcycrp50/13/2022 Telemedicine Oncology Surgery Roxanna Sarmiento MD [address] [place] [address] [facility] Oncology SurgicalStart: 08-16-2021 End: 14-37-5715Rwjhneiaurkb consultation with pgnkkse6508/16/2021 Telemedicine Oncology Surgery Roxanna Sarmiento MD [address] [place] [address] [facility] Oncology SurgicalStart: 08-10-2021 End: 32-63-4202Lvsbjjh encounter iuacomffc87/07/2022 Office Visit [facility] SurgeryMetBucyrus [facility] Surgery GeneralStart: 07-30-2021 End: 61-06-7827Udyfphwoe to same day surgery dezlir0607/30/2021 Surgery General Surgery Roxanna Sarmiento MD [address] [place] [address] HEPATECTOMY, PARTIAL, LOBECTOMY [facility] Main ORComment on above:HEPATECTOMY, PARTIAL, LOBECTOMYStart: 07-30-2021 End: 07-64-8931QKFSYPAFCOK, COMMON BILE DUCTEXPLORATION, COMMON BILE DUCT Routine scheduled Cyst of gallbladder Liver cyst 07/30/2021 10:53 AM EDT PERIOPERATIVE SERVICESStart: 07-30-2021 End: 08-79-6923XKUJXWKPRVQ, PARTIAL, LOBECTOMYHEPATECTOMY, PARTIAL, LOBECTOMY Routine scheduled Cyst of gallbladder Liver cyst 07/30/2021 10:53 AM EDT PERIOPERATIVE SERVICESStart: 07-30-2021 End: 41-17-6257XHSTYLHBXUK, DIAGNOSTICLAPAROSCOPY, DIAGNOSTIC Routine scheduled Cyst of gallbladder Liver cyst 07/30/2021 10:53 AM EDTPERIOPERATIVE SERVICES Start: 17-56-3996Uesqhtpzwp hospital visit by pppmaibor39/27/2022 Hospital Encounter General Surgery Roxanna Sarmiento MD [address] [place] [address] [facility] Main ORStart: 07-15-2021 End: 66-22-8993Yrimxps encounter vtuljhnvu14/12/2022 Office Visit Presurgical Evaluation Marcella Luevano, DOWEL POINTER-VACATION PLANNER [address] [place] [address] [place] [address] [facility] Meno Pre-Surgical Evaluation Start: 07-07-2021 End: 16-25-3067Pgpxszyzhc and management of yrdjueurv53/04/2022 Office Visit Internal Medicine Jennifer Khan MD [address] [place] [address] [facility] Economic Research Assistant Group Start: 06-22-2021 End: 91-27-1588Wxjlswe encounter ktxuhslvb49/19/2022 Office Visit General Surgery Roxanna Sarmiento MD [address] [facility] [place], [place] [facility] Surgery GeneralStart: 06-16-2021 End: 30-23-5106Nlqrugene to same day surgery qbuxka3706/16/2021 Surgery Gastroenterology Leobardo Barry MD [address] [facility] [place] [address] ERCP, GENERAL ANESTHESIASouthwest General Health Center Multispecialty Endoscopy SuiteComment on above:ERCP, GENERAL ANESTHESIAStart: 06-16-2021 End: 03-93-7974PCLQ, GENERAL ANESTHESIAMulti Specialty EndoscopyStart: 71-18-6576Mkdfvitrof hospital visit by kjfymglli14/13/2022 Hospital Encounter Gastroenterology Leobardo Barry MD [address] [facility] [place] [address] [facility] Multispecialty Endoscopy Suite Start: 29-40-5358Qvyalaqxiy ScreeningDepression ScreeningVan Wert County Hospital Start: 68-98-4381Juuruzclgi ScreeningDepression ScreeningProOhio Valley Surgical Hospital Start: 86-60-4963Cwtjxjinx for malignant neoplasm of breastMetroHealthStart: 17-70-5254Grznfcbfp for malignant neoplasm of cervixNONY HealthcareStart: 05-69-9027Ajwinrtqb for malignant neoplasm of cervixPap SmearMetroHealthStart: 94-29-3261Bqqtximsf A (HAV) Vaccine (optional start 19+ years)Hepatitis A (HAV) Vaccine (optional start 19+ years)MetroHealthStart: 34-66-0901Mvxtghjyp B vaccinationHepatitis B (HBV) Vaccine (1 of 3 - 19+ 3-dose series)[facility] Start: 98-56-7870Jlxzytinvrad vaccinationPneumococcal Vaccine(s) (1 of 2 - PCV) MetroHealthStart: 16-12-5726Fagqawjul C screeningHepatitis C AntibodyMetroHealth Start: 01-69-6394MYQ screeningHIV TestMetroHealthStart: 95-42-9250Xqvvpgynaiih vaccinationMetroHealthStart: 16-33-3774IPSBT-19 Vaccine (#1)COVID-19 Vaccine (#1)MetroHealthStart: 57-75-4205WRYGX-19 Vaccine (1)COVID-19 Vaccine (1) MetroHealthStart: 59-01-5815ZXRFU-19 Vaccine (#1)COVID-19 Vaccine (#1) MetroHealthStart: 16-51-1928Rlwwnfbsr for malignant neoplasm of colonMetroHealth Start: 63-14-6827Sfcuqeg CounselingTocc CounselingSelect Medical [facility] System Calculated LDL cholesterol levelSelect Medical [facility] Cholesterol.total/Cholesterol in HDL [Mass Ratio] in Serum or PlasmaSelect Medical Cleveland Clinic Rehabilitation Hospital, AvonCulture bacterial any source anaerobic iso&idANAEROBIC CULTURE, MISC Microbiology Routine Cyst of gallbladder Liver cyst 07/30/2021 4:19 PM EDTMetroHealthCulture tubercle/oth acid-fast bacilli any isolAFB CULTURE/SMEAR Microbiology Routine Cyst of gallbladder Liver cyst 07/30/2021 4:19 PM EDTMetroHealthERCP, GENERAL ANESTHESIAERCP, GENERAL ANESTHESIA Cyst of gallbladder Common bile duct stoneMulti Specialty EndoscopyEXPLORATION, COMMON BILE DUCTEXPLORATION, COMMON BILE DUCT Routine scheduled Cyst of gallbladder Liver cystPERIOPERATIVE SERVICESHEPATECTOMY, PARTIAL, LOBECTOMYHEPATECTOMY, PARTIAL, LOBECTOMY Routine scheduled Cyst of gallbladder Liver cystPERIOPERATIVE SERVICESLAPAROSCOPY, DIAGNOSTICLAPAROSCOPY, DIAGNOSTIC Routine scheduled Cyst of gallbladder Liver cystPERIOPERATIVE SERVICESPatient EducationWright-Patterson Medical Center Ctr Work Phone: Patient [facility] Work Phone: End: 15-61-5001Efelwrbr pathology procedureSURGICAL GI ANATOMIC PATHOLOGY Anatomic Pathology Routine One time for 1 Occurrences starting 06/16/2021 until 06/16/2021[employer] Work Phone: Comment on above:One time for 1 Occurrences starting 06/16/2021 until 06/16/2021urgical pathology procedureTHE [employer] Work Phone: Comment on above:Release Upon Ordering for 1 Occurrences starting 07/30/2021, 1 completedVLDL cholesterol measurement [facility] Immunizations Immunization DateImmunizationNotesCare SxsiquioYxrgbqom55-06-3378Hibmljvwkl A1C Leigh Ann Candelaria DOWEL POINTER-VACATION PLANNER Work Phone: [phone]fJyeqaq80-08-8384jmzzqzt toxoid, reduced diphtheria toxoid, and acellular pertussis vaccine, adsorbedKiteeralessandro Teagan DOWEL POINTER-VACATION PLANNER Work Phone: [phone]aDemsym33-63-2267lmfhbqykj, injectable, quadrivalent, preservative freeKileyla Murphyes DOWEL POINTER-VACATION PLANNER Work Phone: [phone]wZoosvj33-50-2797opuzsxgga virus vaccine, unspecified formulationRoxanna Sarmiento MD Work Phone: [facility]HealthNEGATED: Highlighted row has not occurred! 38-08-4326rezqbyd, mumps and rubella virus vaccineMokatelyn Webster MD Work Phone: [facility]LayerGloss SystemComment on above:Deferred: Other - ImmunityNEGATED: Highlighted row has not occurred!78-60-1082njksnxy toxoid, reduced diphtheria toxoid, and acellular pertussis vaccine, adsorbed Jus Webster MD Work Phone: [facility]Layer[facility] SystemComment on above:Deferred: Other - Given in office this 03/12/2019NEGATED: Highlighted row has not occurred!12-51-8963ubceprsgo virus vaccineJus Webster MD Work Phone: [phone] CenterLayerGloss SystemComment on above:Deferred: Other - ImmunityNEGATED: Highlighted row has not occurred!03-23-3368hehipbb, mumps and rubella virus vaccineJus Webster MD Work Phone: [phone] CenterLayerGloss SystemComment on above:Deferred: OtherNEGATED: Highlighted row has not occurred!41-72-5753ezgdnhlbp virus vaccine Jus Webster MD Work Phone: [phone] SystemComment on above:Deferred: Other Payers DatePayer CategoryPayerPolicy [id number]-[id number] [id number] 2021Medicaid [id number] [id number] 2.0.1.122752.3.579.2.10253-06-9105Vhnsicg4308596 2..1.850027.3.579.2.97514-00-3531Pmjlqpt5874067 2..1.248958.3.579.2.19095-71-8474Ajrlaou9265733 2..1.491314.3.579.2.69336-78-8208Cnspjqi6951784 2..1.954688.3.579.2.93141-96-5046Easjqmc983447811 2..1.356294.3.579.2.17270-98-9344Eeuoklg485255674 2..1.644485.3.579.2.87911-61-6185Tdwfjvl197038705 2..1.724195.3.579.2.09178-39-8810Lnfnyiz58578928 2.0.1.547296.3.579.2.942788-51-3069Imophvc39350328 2.0.1.868421.3.579.2.089402-34-0542Qbkebmg30002397 2.16.840.1.297293.3.579.2.981175-11-7129Mrlflkb44143985045 2.16.840.1.348987.19 Zhyymzr65558836 2.16.840.1.096299.3.579.2.039Aqjoedc58507427 2.16.840.1.732491.3.579.2.306Rphixlr31382830 2.16.840.1.622984.3.579.2.531 Social History DateTypeDetailFacilityStart: 04-02-2021 End: 72-86-3677Pdqbzni smoking status NHISSmokes tobacco dailyMetroHealthStart: 43-59-8324Teazrcf of tobacco useCigarette SmokerMetroHealthStart: 04-02-2021 End: 09-71-3148Bksyyqkryk smoked current (pack per day) - Reported0.75[facility] SystemStart: 04-02-2021 End: 07-26-8554Ycllual use and exposureSmokeless tobacco non-userMetroHealth Start: 06-11-2021 End: 93-28-0760Crfktqe intakeEx-drinker (finding)MetroHealthStart: 04-24-2021 End: 18-47-4596Cmnmzmi SDOH Food Kybfk6DxmfqYdeyigRybmb: 04-24-2021 End: 89-67-4131Sojwxzb SDOH Transport Upp8TzpbrEvifizMspao: 71-14-6429Qii Assigned At BirthNot on fileMetroHealthStart: 05-15-2021 End: 12-18-2559Yeapqscy to SARS-CoV-2 (event)Not sureMetroHealthStart: 03-15-0132Iskqdfm SDOH Kcbbginkm5ZowruIgornlIaoon: 05-31-2020 End: 60-77-0875Stf Assigned At BirthSelect [facility] SystemStart: 05-10-2022 End: 43-16-7311Heccjkl smoking status NHISSmoker (finding)[facility] Hospitaltart: 98-88-8024Xbh Assigned At BirthFemaleFirelands Regional Medical CenterDo you belong to any clubs or organizations such as scientology groups, unions, fraternal or athletic groups, or school groups?[facility] Are you now , , , , never or living with a partner?MarriedFormerly [facility] Hospitaltart: 91-52-7871Rsi hard is it for you to pay for the very basics like food, housing, medical care, and heatingNot hard at allVan Wert County HospitalDo you feel stress - tense, restless, nervous, or anxious, or unable to sleep at night because yourmind is troubled all the time - these days [OSQ]Not at allVan Wert County HospitalThe thought of harming myself has occurred to meNeverFormerly [facility] Hospitaltart: 97-35-5820Ywwhhay Comment using nicorette occasionallyFormerly [facility] Hospitaltart: 75-81-5275Ipqsyrg Commentformer abuseCritical access hospitaltart: 10-09-2014 End: 91-56-6175ZbnKrlbcj (finding)[facility] SystemStart: 06-11-2024 Tobacco smoking status NHISNever smoked tobacco (finding)[facility]: 84-95-9472Onwxpdv of drug misuse behaviorMisused drugs in past (finding)[facility](I/We) worried whether (my/our) food would run out before (I/we) got money to buy more.Never trueMetroHealthTobacco smoking status NHISTobacco smoking consumption unknownNOMS HealthcareNEGATED: Highlighted row [facility] Goals DatePatient GoalDesired Activity/State Functional Status CokpPrrkvihaokFrahwmOjsjdwky56-25-4232Ttaffbwovi statusPatient at Baseline [facility] Work Phone: [phone]vyanizm statusPatient at Baseline [facility] Work Phone: 1([phone] 502-931003531751-02-0750Neolokxsan statusPatient at Baseline [facility] Work Phone: Mental Status RhrtEmpmcscoagKmrifkLbtpqtdd61-18-1012Xjkkoigql functionCognitive Status Patient at [facility] Work Phone: [phone]zkkpuimq functionCognitive Status Patient at [facility] Work Phone: [phone] 388-937203-680640-77-8735Hjfsmjzkx functionCognitive Status Patient at [facility] Work Phone: Clinical Notes 06-07-2021 to 08-06-2024 Note Date & QyzdOumzJkounbln65-31-1486 NoteUT Electrophysiology Consult Note [place] [facility] 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 She had a sleep study done which was positive for sleep apnea. She she is here to discuss about possible EP study and ablation. HPI: Shahla Thapa is a 44 y.o. year old here [...] file Physical Activity: Inactive (05/31/2020) Received from [employer], [employer] Exercise Vital Sign Days of Exercise per Week: 0 days Minutes of Exercise per Session: 0 min Stress: No Stress Concern Present (05/31/2020) Received from [employer], [employer] [place] [employer] - Occupational Stress Questionnaire Feeling of Stress : Not at all Social Connections: Socially Isolated (05/31/2020) Received from [employer], [employer] Social Connection and Isolation Panel [NHANES] Frequency of Communication with Friends and Family: Never Frequency of Social Gatherings with Friends and Family: Never Attends Church Services: Never Active Member of Clubs or Organizations: No Attends Club or Organization Meetings: Never Marital Status: Intimate Partner Violence: Unknown (05/24/2024) Humiliation, Afraid, Rape, and Kick questionnaire Fear of Current or Ex-Partner: No Emotionally Abused: Not on file Physically Abused: Not on file Sexually Abused: Not on file Depression: At risk (07/03/2023) Received from [employer], [employer] PHQ-2 Total Score: 10 Housing Stability: Low Risk (05/24/2024) Housing Stability Vital Sign Unable to Pay for Housing in the Last Year: No Number of Times Moved in the Last Year: Not on file Homeless in the Last Year: No Utilities: Not At Risk (05/24/2024) [facility] Utilities Threatened with loss of utilities: No [...] the morning. cholecalciferol (Vitamin D-3) 50 MCG (1999) tablet [...] mouth if needed. omeprazole (more content not included)...[facility] 06-14-2024 Hospital Discharge instructions Additional Instructions Important Contact Information You can call [facility] Inpatient Behavioral Health at [phone] any time day or night if you have emergent questions or question regarding discharge instructions. If at any time you are feeling an increase in your psychiatric symptoms, call your physician or behavioral healthcare provider. If any time you have thoughts of harming yourself or others contact one of the following: Call 88 (available 26/09) Crisis Text Line (available 26/09) text 4HOPE to [phone] [facility] Hope Line (available 8 a.m. Midnight) call [phone] ([phone]) [facility] Work Phone: 1(606) 883-210504-10-2025 Progress note Author Vivek washburn [facility], [facility]onNote Date/TimeApril 2024 7:23[place] [id number] Psychiatry Progress Note Signed Patient: Shahla Thapa MR#: [id number] 2579 : 1980 Acct:[id number] Age/Sex: 44 / F Adm Date: 5 Loc: Room: [address] [place] [address] Type : ADM IN Attending Dr: Vivek Antoine MD Copies to: ~ Date of Service: 06/13/2024 Subjective Subjective Narrative: Ms. Thapa is a 44 year old female with [...] signed by Vivek Antoine MD> 06/13/24 0723 [facility] Work Phone: 1(427) 271-730704-10-2025 Progress noteBr[place] [id number] Psychiatry Progress Note Signed Patient: Shahla Thapa MR#: [id number] 2579 : 1980 Acct:[id number] Age/Sex: 44 / F Adm Date: 5 Loc: Room: [address] [place] [address] Type : ADM IN Attending Dr: Vivek Antoine MD Copies to: ~ Date of Service: 06/13/2024 Subjective Subjective Narrative: Ms. Thapa is a 44 year old female with [...] MD 5 0719 Signed By: 06/13/24 0723 [facility]04-09-2025 History and physical note Author Vivek washburn [facility], [facility]onNote Date/TimeApril 2024 1:52[place] [address] Psychiatry H&P Signed Patient: Shahla Thapa MR#: [id number] 2579 : 1980 Acct:[id number] Age/Sex: 44 / F Adm Date: 5 Loc: 1S Room: [address] [place] [address] Type: ADM IN Attending Dr: Vivek Antoine MD Copies to: MD Josette Arredondo CNP~ Date of Service: 06/12/2024 HPI History of Present Illness History of present illness: Ms. Thapa is a 44 year old female with [...] negative unless noted below or in HPI [facility] Medical History Essential hypertension Depression [...] of carpal tunnel release of both wrists [place] teeth removed History of cholecystectomy Family History [...] Appearance Clear Urine pH 5.5 Ur Specific Roggen 1.025 Urine Protein 20 H Urine Glucose [...] daily Documented By: Vivek Antoine MD 5 [id number] Signed By: <Electronically signed by Vivek Antoine MD> 06/12/[address] [place] [address] Work Phone: 1(631) 786-639604-09-2025 [place] [address] Psychiatry H&P Signed Patient: Shahla Thapa MR#: [id number] 2579 : 1980 Acct:[id number] Age/Sex: 44 / F Adm Date: 5 Loc: 1S Room: [address] [place] [address] Type: ADM IN Attending Dr: Vivek Antoine MD Copies to: MD Josette Arredondo CNP~ Date of Service: 06/12/2024 HPI History of Present Illness History of present illness: Ms. Thapa is a 44 year old female with [...] Patient said she was started on Fetzima last. She did not notice is making a [...] negative unless noted below or in HPI [facility] Medical History Essential hypertension Depression [...] of carpal tunnel release of both wrists [place] teeth removed History of cholecystectomy Family History [...] Appearance Clear Urine pH 5.5 Ur Specific Roggen 1.025 Urine Protein 20 H Urine Glucose [...] MD 5 1258 Signed By: 06/12/24 1352 [facility]04-08-2025 Evaluation note* Diagnosis Onset Date Resolution Status Admit Date Major depression acuteApril 2024 8:59pmDepression with anxietyresolvedApril 2024 8:59pm Suicidal ideationresolvedApril 2024 8:59pmBronchitis with asthma, acute noneactiveApril 2024 2:40pm [facility] Work Phone: 1(109) 727-252704-08-2025 NoteUT Electrophysiology Consult Note [place] [facility] Reason for visit: WPW HPI: Shahla Thapa is a 44 y.o. year old with [...] file Physical Activity: Inactive (05/31/2020) Received from [employer], [employer] Exercise Vital Sign Days of Exercise per Week: 0 days Minutes of Exercise per Session: 0 min Stress: No Stress Concern Present (05/31/2020) Received from [employer] [place] [employer] Health - Occupational Stress Questionnaire Feeling of Stress : Not at all Social Connections: Socially Isolated (05/31/2020) Received from [employer], [employer] Social Connection and Isolation Panel [NHANES] Frequency of Communication with Friends and Family: Never Frequency of Social Gatherings with Friends and Family: Never Attends Church Services: Never Active Member of Clubs or Organizations: No Attends Club or Organization Meetings: Never Marital Status: Intimate Partner Violence: Unknown (05/24/2024) Humiliation, Afraid, Rape, and Kick questionnaire Fear of Current or Ex-Partner: No Emotionally Abused: Not on file Physically Abused: Not on file Sexually Abused: Not on file Depression: At risk (07/03/2023) Received from [employer], [employer] PHQ-2 Total Score: 10 Housing Stability: Low Risk (05/24/2024) Housing Stability Vital Sign Unable to Pay for Housing in the Last Year: No Number of Times Moved in the Last Year: Not on file Homeless in the Last Year: No Utilities: Not At Risk (05/24/2024) [facility] Utilities Threatened with loss of utilities: No [...] tablet Take 10 (more content not included)... [facility]03-22-2025 NoteHospital Medicine Discharge Summary Final Discharge Diagnosis: NSTEMI, likely demand ischemia in setting of acute illness. Abnormal stress test with anterior reversible defect and TID. Pre-Excitation on EKG Peripheral artery disease, follows with vascular , on dual antiplatelet therapy. Normocytic anemia Primary hypertension Class II obesity Admission Diagnosis: NSTEMI (non-ST elevated myocardial infarction) ([facility]) [I21.4] Hospital course: 44-year-old female with past medical history significant for peripheral vascular disease on DAPT, uncontrolled hypertension, obesity who presented initially to [facility] due to nausea/vomiting and abdominal pain. Initial workup at [facility] was significant for elevated high-sensitivity troponin, stress test was ordered but the patient was not able to complete the stress test and the patient was transferred to [facility] to be evaluated by cardiology. Patient was [...] Time Provider Department Center 06/11/2024 11:30 AM Prashant Rodriguez MD [facility] Your medication list CONTINUE taking these [...] Results from last 7 days Lab Units 05/25/2441605/24/24 0825 WBC AUTO 10*3/uL 5.23 5.00 HEMOGLOBIN g/dL 9.7* 9.7* HEMATOCRIT % 30.7* 30.5* MCV fL 91.4 92.7 PLATELETS AUTO 10*3/uL 189 153 Chemistry: Results from last 7 days Lab Units 05/25/24 04105/24/24 0825 SODIUM mmol/L 138 139 POTASSIUM mmol/L [...] was 38 minutes. Signed Shreyas Rodriguez MD [facility] 05/25/2024 10:33 AM CC: [facility]03-22-2025 Note Attestation signed by Bashir Heath MD at 05/25/2024 1:59 PM 05/25/24 [...] event monitor at the time of discharge. Bashir Heath MD, ScM, MSc Cardiac Head Rigger Email: [email or web address] Cardiology Progress Note Subjective Subjective: Patient [...] mg, oral, Daily, Cj Robles MD diphenhydrAMINE-AlumMg Qerpta-Trdrqp-Extqrlwnj (MAGIC Mouthwash) suspension 10 mL, 10 mL, [...] 0.9 % infusion, 50 mL/hr, intravenous, Continuous, Florence Dawson MD, Last Rate: 50 mL/hr at [...] abdominal tenderness. Musculoskeletal: Rig (more content not included)...[facility]03-21-2025 NotePatient: Shahla Thapa Procedure Information Date/Time: 05/24/24 1534 Procedure: Coronary angiography Location: [facility] [employer] 3 / [facility] (Cath) Providers: Silvestre Neumann MD Clinical information reviewed: Allergies Meds Problems Physical Exam Airway Mallampati: III Cardiovascular Rhythm: regular Rate: normal Dental Pulmonary Breath sounds clear to auscultation Abdominal Anesthesia Plan ASA 3 other (Moderate Sedation ) Anesthetic plan and risks discussed with patient. Use of blood products discussed with patient who consented to blood products. Additional Equipment RequestsUnAdena Pike [facility]03-21-2025 Note- Note that patient had abdominal pain after eating a compelled meal and Evan. -Must consider biliary dyskinesia and also acute pancreatitis being that patient has had acute pancreatitis in the past.[facility] 05-24-2024 Note-Patient has positive test however she states that she is not -Patient states that she has tubal ligation -Repeat quantitative beta-hCG DVT prophylaxis using VTE protocols per [facility] GI protection Protonix Monitor labs and correct any abnormalities especially monitor renal function Try to avoid nephrotoxic agents Consult include cardiology and nephrology I discussed the plan of care with the patient and she is in agreement with the plan of care.[facility]03-21-2025 Note-Gentle hydration with normal saline at rate of 50 mL/h -Avoid nephrotoxic agents -Care must be taken to preserve renal function before, during and after catheterization -Need to consult with nephrology.[facility]03-21-2025 Note-Weight loss by virtue of diet and exerciseUnAdena Pike Medical Center03-21-2025 Note-Pantoprazole orallyUnAdena Pike Medical Center 05-24-2024 Note-Proceed to catheterization however care must be taken because of patient's renal function. -May need to consult with nephrologyUnAdena Pike [facility] 05-24-2024 Note-Patient's blood pressure is completely controlled this morning it was 100/65 -Will hold all antihypertensive medications for the momentUnAdena Pike Medical Center03-21-2025 Note-Patient is currently chest pain-free -Commence patient on IV heparinization -Aspirin -Obtain lipid panel -Consult cardiology -Has supplemental oxygen and nitrates ready to use if patient has chest discomfort.[facility]03-21-2025 NoteHospital Medicine History and Physical 05/24/2024 7:55 AM THE HOSPITALIST TEAM PREFERS TO USE [email or web address] FOR NON-URGENT COMMUNICATION 7AM-7PM. IF I DO NOT RESPOND WITHIN 20 MINUTES OR URGENT MATTERS, PLEASE CALL THROUGH THE GAS CUTTER. FROM 7PM-7AM, PLEASE PAGE [phone](COVR). Chief Complaint No chief complaint on file. History of Present Illness Shahla Thapa is an 44 y.o. female who came on transferred from [facility] with NSTEMI, abnormal EKG and abnormal stress test and to have a heart cath today. 44-year-old lady whose past medical history significant for the following; hypertension, obesity, depression and anxiety, history of peripheral disease. Patient was transferred from [facility] to [facility] for further treatment. She presented to the ER at [place] with abdominal pain, nausea and vomiting following a meal at [employer]. Pain also continued after she had a Evan. These symptoms began on 05/21/2024. At [facility] patient was investigated and was found to have abnormalities with BUN/creatinine as well as also with stress testing and abnormal EKGs. [facility] made contact with [place] cardiology and patient was transferred here for have catheterization today. When I saw her she was lying in bed woken up voiced no complaints. She denied any abdominal pain or chest pain, nausea or vomiting. Laboratory investigations that were done at [facility] showed a BUN of 29 and [...] hypertension, obesity anxiety and depression seen at [facility] diagnosed with NSTEMI and IAM. She is transferred here for for cardiac catheterization following abnormal stress test. Assessment & Plan NSTEMI (non-ST elevated myocardial infarction) ([facility]) -Patient is currently chest pain-free -Commence patient [...] beta-hCG DVT prophylaxis using (more content not included)...[facility]01-26-2025 Evaluation note* Diagnosis Onset Date Resolution Status Admit Date RSV (respiratory syncytial virus infecti on) acuteJanuary 2024 11:18amMajor depressionacuteApril 2024 8:59pm Suicidal ideationacuteApr2024 8:59pm [facility] Work Phone: 1(685) 938-312201-26-2025 Evaluation note* Diagnosis Onset Date Resolution Status Admit Date RSV (respiratory syncytial virus infecti on) acuteJanuary 2024 11:18amDepression with anxietyacuteApril 2024 8:59pmMajor depressionacuteApril 2024 8:59pmSuicidal ideationacuteApr2024 8:59pm [facility] Work Phone: 1(910) 351-885901-26-2025 Evaluation note* Diagnosis Onset Date Resolution Status Admit Date RSV (respiratory syncytial virus infecti on) acuteJanuary 2024 11:18amMajor depressionacuteApril 2024 8:59pm Depression with anxietyresolvedApr2024 8:59pmSuicidal ideationresolved Tammi 2024 8:59pm [facility] Work Phone: 1(303) 120-199401-10-2025 NoteCardiology Clinic Note HPI: Shahla Thapa is a 44 y.o. 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 She presents today for follow up. She was recently at [facility] for acute hypotension, IAM, and ECG [...] - Transthoracic echo (TTE) complete; Future WPW (Gryym-Lsvppzwey-Irapq syndrome) - Treadmill Stress Myocardial Perfusion Imaging; [...] Patient verbalizes understanding -Follow-up in cardiology clinic Reed Prado MD Interventional Cardiology [place] (more content not included)...[facility] 03-07-2024 History of Present illness Narrative* Jus Webster MD - 03/07/2024 10:30 AM EST Images from the original note were not included. To: JOSETTE MANDEL, DOWEL POINTER-VACATION PLANNER HPI: Shahla Thapa is a 44 y.o. female with Claudication [...] History: Past Medical History: Diagnosis Date Alcoholic ([facility]) Anxiety Arthritis Asthma Bipolar disorder ([facility]) Depression Fractures GERD (gastroesophageal reflux disease) HPV (human papilloma virus) infection Hyperlipidemia Hypertension Migraine Obesity Postoperative wound infection 05/22/2019 Past Surgical History: Past Surgical History: Procedure Laterality Date APPLICATION WOUND VAC N/A 05/22/2019 Performed by Boni Ogden MD at [place] SURGERY N/A 05/13/2019 Performed by Boni Ogden MD at [place] LD OR Cardiac catheterization 07/02/2020 Performed by Va Coy MD at [facility] CARDIAC CATH LABS CARPAL TUNNEL RELEASE Bilateral CHOLECYSTECTOMY Coronary angiogram only N/A 07/02/2020 Performed by Va Coy MD at [facility] CARDIAC CATH LABS DEBRIDEMENT WOUND N/A 05/22/2019 Performed by Boni Ogden MD at [facility] LAPAROSCOPIC SALPINGECTOMY Bilateral 07/20/2022 Performed by Sabina Leung DO at [facility] LIVER BIOPSY Social and Family History: Social [...] Resource Strain: Low Risk (08/03/2021) Received from [facility] Overall Financial Resource Strain (CARDIA) Difficulty of Paying Living Expenses: Not hard at all Food Insecurity: No Food Insecurity (03/07/2024) Hunger Screening Food Insecurity - Worry: Never True Food Insecurity - Inability: Never True Transportation Needs: No Transportation Needs (08/03/2021) Received from [facility] PRAPARE - Transportation Lack of Transportation (Medical): No Lack of Transportation (Non-Medical): No Physical Activity: Inactive (05/31/2020) Exercise Vital Sign Days of Exercise per Week: 0 days Minutes of Exercise per Session: 0 min Stress: No Stress Concern Present (05/31/2020) [place] [employer] - Occupational Stress Questionnaire Feeling of Stress : Not at all Social Connections: Socially Isolated (05/31/2020) Social Connection and Isolation Panel [NHANES] Frequency of Communication with Friends and Family: Never Frequency of Social Gatherings with Friends and Family: Never Attends Church Services: Never Active Member of Clubs or Organizations: No Attends Club or Organization Meetings: Never Marital Status: Interpersonal Safety: Unknown (06/28/2023) Received from [facility] Safety & Environment Fear of Current or Ex-Partner: Not on file Emotionally Abused: Not on file Physically Abused: Not on file Sexually Abused: Not on file Physically or Sexually Abused: Not on file Housing Instability: Unknown (08/03/2021) Received from [facility] Housing Stability Vital Sign Unable to Pay [...] toe syndrome of left lower extremity (CMS-HCC) Jus Webster MD, EMA, RPVI, FSVS, FACS [facility] This note was created with the assistance of a speech recognition program. While intending to generate a timely document that accurately reflects the content of the visit, no guarantee can be provided that every grammatical or spelling mistake has been or will be identified or corrected. Thank you for your understanding. documented in this encounterVan [facility] Instructions* Patient Instructions* Jus Webster MD - 03/07/2024 10:30 AM EST Are You Ready To Kick The Habit? Free Tobacco Cessation Resources [facility] Services [facility] provide all employees with free tobacco cessation services that include: Counseling to understand nicotine addiction Education about medications that can help you successfully quit Assistance with developing a plan to quit Call to set up an individual appointment or find out when group classes will be held: Elmer edwards [facility]: [phone] [facility]: [phone] [facility]: [phone] [facility]: [phone] Quit Smoking Action Plan and Resources [facility] offers an eight-week, online smoking cessation plan to all [facility] employees, regardless of whether [employer] is your medical insurance provider. Go to www.[email or web address]org/employeewellness and click the Health Risk Assessment and Resources link to get started. In the Jkypb9Pjjfrl menu, click Action Plans instead of Health Risk Assessment to access the Quit Smoking Action Plan. Additional smoking cessation resources are also available to all [facility] employees on the Ykwrv3Qiytqr web page at www.[employer]/quitsmoking. [place] Tobacco Cessation Program If [employer] is your medical insurance provider, there are more free resources available to you, including: No copays or deductibles on local tobacco cessation counseling services to help you quit Prescription assistance for tobacco cessation medications to help you quit For details about the tobacco cessation program available to [employer] members, go to www.[employer] (Search: Tobacco Cessation Program). [place] Tobacco Quit Line 8-058-ZUMK-NOW ( ) is a toll-free, telephonic service that helps [place] residents quit smoking and using tobacco. It is staffed by experts who tailor a quit plan for you and provide you with advice. [place] Tobacco Quit Line 1-574-MIWN-NOW ( ) is a toll-free, telephonic service that helps [place] residents quit smoking and using tobacco. It is staffed by experts who tailor a quit plan for you and provide you with advice. Two weeks of nicotine replacement therapy may be provided at no charge, if needed. Additional Resources These national organizations also offer free information and resources to help you quit tobacco: [place] Cancer Society--www.cancer.org/healthy/stayawayfromtobacco [place] Heart Association--www.heart.org (Search: Quit Smoking) Centers for Disease Control and Prevention--www.cdc.gov/tobacco [place] Lung Association--www.lungusa.org documented in this encounterLake [facility] Keko [phone] Evaluation + Plan note* Assessment & Plan Note - Jus Webster MD - 03/07/2024 10:17 AM EST Associated Problem(s): 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) Is significantly resolved with very mild residual discoloration of the left great toe.We will continue aspirin Plavix and statin [facility]01-02-[facility]25 Miscellaneous Notes* Assessment & Plan Note - Jus Webster MD - 03/07/2024 10:17 AM ESTAssociated Problem(s): 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) Is significantly resolved with very mild residual discoloration of the left great toe.We will continue aspirin Plavix and statin * Assessment & Plan Note - Jus Webster MD - 03/07/2024 10:16 AM EST Associated Problem(s): Cigarette smoker motivated to quit Counseled on smoking cessation for 3 minutes she is willing to quit * Assessment & Plan Note - Jus Webster MD - 03/07/2024 10:16 AM EST Associated Problem(s): Severe claudication (CMS-HCC) Continue aspirin Plavix statin. Smoking cessation. Continue walking. documented in this encounterVan Wert [facility] Hospital01-02-2025 Evaluation + Plan note* Assessment & Plan Note - Jus Webster MD - 03/07/2024 10:16 AM EST Associated Problem(s): Cigarette smoker motivated to quit Counseled on smoking cessation for 3 minutes she is willing to quit [facility]01-02-2025 Evaluation + Plan note* Assessment & Plan Note - Jus Webster MD - 03/07/2024 10:16 AM ESTAssociated Problem(s): Severe claudication ([facility]) Continue aspirin Plavix statin. Smoking cessation. Continue walking. [facility]09-26-2024 Evaluation + Plan note* Assessment & Plan Note - Jus Webster MD - 11/30/2023 9:01 AM EDTAssociated Problem(s): Cigarette smoker motivated to quit Counseled on smoking cessation at length [facility]09-26-2024 Evaluation + Plan note* Assessment & Plan Note - Jus Webster MD - 11/30/2023 9:01 AM EDTAssociated Problem(s): Claudication ([facility]) Best medical therapy with aspirin and Plavix and statin. Supervised walking program. Smoking cessation. [facility]09-26-2024 Miscellaneous Notes* Assessment & Plan Note - Jus Webster MD - 11/30/2023 9:01 AM EDTAssociated Problem(s): Cigarette smoker motivated to quit Counseled on smoking cessation at length * Assessment & Plan Note - Jus Webster MD - 11/30/2023 9:01 AM EDT Associated Problem(s): Claudication ([facility]) Best medical therapy with aspirin and Plavix and statin. Supervised walking program. Smoking cessation. documented in this encounterVan Wert County Hospital09-26-2024 History of Present illness Narrative* Jus Webster MD - 11/30/2023 8:30 AM EDT Images from the original note were not included. To: JOSETTE MANDEL, STEVE-OSCAR HPI: Shahla Thapa is a 43 y.o. female with history [...] History: Past Medical History: Diagnosis Date Alcoholic ([facility]) Anxiety Arthritis Asthma Bipolar disorder ([facility]) Depression Fractures GERD (gastroesophageal reflux disease) HPV (human papilloma virus) infection Hyperlipidemia Hypertension Migraine Obesity Postoperative wound infection 05/22/2019 Past Surgical History: Past Surgical History: Procedure Laterality Date APPLICATION WOUND VAC N/A 05/22/2019 Performed by Boni Ogden MD at [facility] N/A 05/13/2019 Performed by Boni Ogden MD at [facility] Cardiac catheterization 07/02/2020 Performed by Va Coy MD at [facility] CARDIAC CATH LABS CARPAL TUNNEL RELEASE Bilateral CHOLECYSTECTOMY Coronary angiogram only N/A 07/02/2020 Performed by Va Coy MD at [facility] CARDIAC CATH LABS DEBRIDEMENT WOUND N/A 05/22/2019 Performed by Boni Ogden MD at [facility] LAPAROSCOPIC SALPINGECTOMY Bilateral 07/20/2022 Performed by Sabina Leung DO at [facility] LIVER BIOPSY Social and Family History: Social [...] Resource Strain: Low Risk (08/03/2021) Received from [facility] Overall Financial Resource Strain (CARDIA) Difficulty of Paying Living Expenses: Not hard at all Food Insecurity: No Food Insecurity (11/30/2023) Hunger Screening Food Insecurity - Worry: Never True Food Insecurity - Inability: Never True Transportation Needs: No Transportation Needs (08/03/2021) Received from [facility] PRAPARE - Transportation Lack of Transportation (Medical): No Lack of Transportation (Non-Medical): No Physical Activity: Inactive (05/31/2020) Exercise Vital Sign Days of Exercise per Week: 0 days Minutes of Exercise per Session: 0 min Stress: No Stress Concern Present (05/31/2020) [place] [employer] - Occupational Stress Questionnaire Feeling of Stress : Not at all Social Connections: Socially Isolated (05/31/2020) Social Connection and Isolation Panel [NHANES] Frequency of Communication with Friends and Family: Never Frequency of Social Gatherings with Friends and Family: Never Attends Church Services: Never Active Member of Clubs or Organizations: No Attends Club or Organization Meetings: Never Marital Status: Interpersonal Safety: Unknown (06/28/2023) Received from [facility] [place] Safety & Environment Fear of Current or Ex-Partner: Not on file Emotionally Abused: Not on file Physically Abused: Not on file Sexually Abused: Not on file Physically or Sexually Abused: Not on file Housing Instability: Unknown (08/03/2021) Received from [facility] Housing Stability Vital Sign Unable to Pay [...] Counseled on smoking cessation at length Claudication ([facility]) Current Assessment & Plan Best medical therapy with aspirin and Plavix and statin. Supervised walking program. Smoking cessation. Shahla was seen today for 3 month follow up no testing ordered and severe claudication ([facility]). Diagnoses and all orders for this visit: Cigarette smoker motivated to quit Claudication ([facility]) Jus Webster MD, EMA, RPVI, FSVS, FACS [facility] This note was created with the assistance of a speech recognition program. While intending to generate a timely document that accurately reflects the content of the visit, no guarantee can be provided that every grammatical or spelling mistake has been or will be identified or corrected. Thank you for your understanding. documented in this encounterVan Wert [facility] Hospital09-26-2024 Instructions* Patient Instructions* Jus Webster MD - 11/30/2023 8:30 AM EDT Are You Ready To Kick The Habit? Free Tobacco Cessation Resources [facility] Services [facility] provide all employees with free tobacco cessation services that include: Counseling to understand nicotine addiction Education about medications that can help you successfully quit Assistance with developing a plan to quit Call to set up an individual appointment or find out when group classes will be held: [facility]: [phone] [facility]: [phone] [facility]: [phone] [facility]: [phone] Quit Smoking Action Plan and Resources [facility] offers an eight-week, online smoking cessation plan to all [facility] employees, regardless of whether [employer] is your medical insurance provider. Go to www.[employer]org/employeewellness and click the Health Risk Assessment and Resources link to get started. In the Pmtcz4Yqlvdr menu, click Action Plans instead of Health Risk Assessment to access the Quit Smoking Action Plan. Additional smoking cessation resources are also available to all [facility] employees on the Vdwmu1Pzenko web page at www.[employer]me/quitsmoking. [place] Tobacco Cessation Program If [employer] is your medical insurance provider, there are more free resources available to you, including: No copays or deductibles on local tobacco cessation counseling services to help you quit Prescription assistance for tobacco cessation medications to help you quit For details about the tobacco cessation program available to [employer] members, go to www.[employer] (Search: Tobacco Cessation Program). [place] Tobacco Quit Line 6-636-NKRS-NOW ( ) is a toll-free, telephonic service that helps [place] residents quit smoking and using tobacco. It is staffed by experts who tailor a quit plan for you and provide you with advice. [place] Tobacco Quit Line 2-128-PACR-NOW ( ) is a toll-free, telephonic service that helps [place] residents quit smoking and using tobacco. It is staffed by experts who tailor a quit plan for you and provide you with advice. Two weeks of nicotine replacement therapy may be provided at no charge, if needed. Additional Resources These national organizations also offer free information and resources to help you quit tobacco: [place] Cancer Society--www.cancer.org/healthy/stayawayfromtobacco [place] Heart Association--www.heart.org (Search: Quit Smoking) Centers for Disease Control and Prevention--www.cdc.gov/tobacco [place] Lung Association--www.lungusa.org documented in this encounterVan Wert [facility] Hospital09-10-2024 Discharge summary Author Vivek washburn [facility] November 14, 2023 7:16amNote Date/TimeSept2023 7:17amBrittany V[place] [id number] Discharge Summary Signed Patient: Shahla Thapa MR#: [id number] 2579 : 1980 Acct:[id number] Age/Sex: 43 / F Adm Date: 4 Loc: Room: [address] [place] [address]: Geo Loomis MD Copies to: MD Geo Arredondo MD Pamela Sue Cramer, VACATION PLANNER~ Providers Date of Discharge: 11/14/23 Discharging Provider: Vivek Antoine Primary Care Provider: Josette Mandel Discharge Diagnosis (1) Major depression: Final Diagnosis Final Discharge Diagnosis: MDD Summary Hospital Course Hospital course: Ms. Thapa is a 43 year old female with a reported history of?depression, anxiety, suicidal ideation, hypertension, vitamin D deficiency, insomnia, SHARI, asthma, LVH, IBS, GERD, and raynauds phenomenonwho presents for inpatient treatment due to?depression and anxiety with suicidal ideation. Reportedly, patient presented to the ER with suicidal ideation. She states that she has not felt right sinceher mother last spring. She has repeated bouts of anxiety and depression. She feels her medications are not working. At the time of the interview, the patient stated she feels okay around others but fall apart when I'm alone . She currently rates her depression and anxiety a 9/10. When asked about the history ofher anxiety and depression the patient states that [...] be compliant with prescribed medications and is visiblewithin the unit milieu. She has beenworking with skilled nursing case manager on her aftercare she agreed to continue the current medications regimen. She understands risks, benefits, and indications of current medication regimen.She sees Opal Tracey her outpatient [employer] THE[employer] ATTENDANT She has not history of recent suicide attempts, presented as future oriented, participated in groupactivities, articulated needs appropriately, and displayedno self-harm behaviors since being admitted to the inpatient unit. Imminent riskis low given factors noted above. She denied any current symptom that would pose a threat to self or others. Further inpatient hospitalization unlikely to mitigate chronic suicide risk, and pt agrees to f/u with outpatient psych care. We also discussed benefitsof outpatient CBT and DBT to help with depression and reduce suicide risk. At this time, the patient has maximized the benefit from inpatient hospitalization as can be determined with a reasonable degree of medical certainty. At the time of discharge, the patient understoodthe importance of continued outpatient treatment and medication adherence. The patient voiced understanding of the discharge plan discussed with the treatment team. At time of discharge with reasonable degree of medical certainty, the patient manifesteda low risk of acute harm to self or others kaylin low-moderate chronic risk, evidenced by the psychiatric history and the subjective and objective c ondition at that time. Patient denies any active [...] Instructions: Important Contact Information You can call [facility] Inpatient Behavioral Health at [phone] any timeday or night if you have emergent questions or question regarding discharge instructions. If at anytime you are feeling an increase inyour psychiatric symptoms, call your physician or behavioral healthcare provider. If any time you have thoughts of harming yourself or others contact one of the following: Call (available 26/09) Crisis Text Line (available 26/09) text 4HOPE to [phone] [facility] Hope Line (available 8 a.m. Midnight) call [phone] ([phone]) Instructions: Know your Meds Prescriptions: New bupropion [...] hrs PRN; Note: Source Status: Taking; Refills: 0;Provider: Abdias Hopson hydroxyzine pamoate 50 mg capsule [...] tablet 75 mg PO DAILY Follow Up: [facility] [Outside] Josette Mandel NP-C [Primary Care Provider] - (Call with any medical questions or concerns.) Exam Physical Exam Vital Signs: Temp Pulse Resp BP Pulse Ox O2 Del Method 97.4 F L 88 18 101/68 97 Room Air 11/13/23 20:04 11/13/23 20:04 11/13/23 20:04 11/13/23 20:04 11/13/23 20:04 11/13/23 20:04 Documented By: Vivek Antoine MD [id number] Signed By: <Electronically signed by Vivek Antoine MD> 11/14/23 0716 [facility] Work Phone: 1(841) 377-169609-09-2024 Progress note Author Vivek washburn [facility] November 13, 2023 7:20amNote Date/TimeSeptember 2023 7:19[place] [address] Psychiatry Progress Note Signed Patient: Shahla Thapa MR#: [id number] 2579 : 1980 Acct:[id number] Age/Sex: 43 / F Adm Date: 4 Loc: Room: 5J8923-4 Type : ADM IN Attending Dr: Geo Loomis MD Copies to: ~ Date of Service: 11/13/2023 Subjective Subjective Narrative: Ms. Thapa reported that she her anxiety at 7 out of 10 with 10 being the worst. Depression is ongoing but noted no suicidal thoughts on exam. She lives with herhusband and daughter whom she describedas supportive. She sees Sabina Tracey her outpatient [employer] THE[employer] ATTENDANT and a therapist. She said symptoms are [...] Vivek Antoine MD> 11/13/23 0720 [facility] Work Phone: 1(984) 974-237609-08-2024 Progress note Author Geo Loomis [facility] November 12, 2023 11:19amNote Date/TimeSept2023 11:20[place] [address] Psychiatry Progress Note Signed Patient: Shahla Thapa MR#: [id number] 2579 : 1980 Acct:[id number] Age/Sex: 43 / F Adm Date: 4 Loc: Room: [address] [place] [address] Type : ADM IN Attending Dr: Geo Loomis MD Copies to: ~ Date of Service: 11/12/2023 Subjective Subjective Narrative: Ms. Thapa reported that she had a bout of [...] <Electronically signed by Geo Loomis MD> 11/12/231118 [facility] Work Phone: 1(275) 608-132009-07-2024 Progress note Author Geo Loomis [facility] November 11, 2023 12:01pmNote Date/TimeSept2023 12:01[place]on [place] [address] Psychiatry Progress Note Signed Patient: Shahla Thapa MR#: [id number] 2579 : 1980 Acct:[id number] Age/Sex: 43 / F Adm Date: 4 Loc: Room: [address] [place] [address] Type : ADM IN Attending Dr: Geo Loomis MD Copies to: ~ Date of Service: 11/11/2023 Subjective Subjective Narrative: Ms. Thapa reported that her anxiety is still high. She stated that using her Ativan does help. She reported that she does sleep a bit better overnight. Shefeels like she did not have a good effect from BuSpar in the past. She denied any current side effects to the [place]. MSE Appearance: grossly normal. Fair grooming and hygiene, calm, cooperative, engaged in the interview.Good eye contact. Normal psychomotor activity. Mental Status: mental status grossly normal Mood: Anxious Affect: Anxious Speech and Movement: speech and movement normal and speech clear. Regular rate, rhythm, volume, andtone. Non pressured. Attitude: cooperative Thought Process: normal, linear, logical, and goal-oriented Thought Content: Denies paranoid or delusional thoughts. Denied hallucinations, no homicidality andno suicidality. Does not appear to be responding [...] <Electronically signed by Geo Loomis MD> 11/11/23 1205 [facility] Work Phone: 1(358) 252-526409-06-2024 Progress note Author Geo Loomis [facility] November 10, 2023 1:59pmNote Date/TimeSept2023 12:12[place] [address] Psychiatry Progress Note Signed Patient: Shahla Thapa MR#: [id number] 2579 : 1980 Acct:[id number] Age/Sex: 43 / F Adm Date: 4 Loc: Room: [address] [place] [address] Type : ADM IN Attending Dr: Geo Loomis MD Copies to: ~ Date of Service: 11/10/2023 Subjective Subjective Narrative: Ms. Thapa is a 43 year old female on [...] and her anxiety a 9/10 currently. Today shestates her appetite is fine and has since recovered after the indigestion with lunch yesterday. She states that she is sleeping too much but the sleep has been largely restless and she is tossing and turning . She is attending group sessions and finds some sessions more meaningful than others.She denies suicidal ideation and denies hallucinations. She is tolerating her current medications. S he does mention that she has been sweating [...] is unsure if she has tried duloxetine. Wediscussed that her medications may be titrated or altered and may or may not include previously used medications but combinations may be different than previous use. The patient seemed amenable to this given her goal is finding an effective therapy and being able to go home MSE Appearance: grossly normal. Fair grooming and hygiene, calm, cooperative, engaged in the interview.Good eye contact. Normal psychomotor activity. Mental Status: mental status grossly normal Mood: okay Affect: flat Speech and Movement: speech and movement normal and speech clear. Regular rate, rhythm, volume, andtone. Non pressured. Attitude: cooperative Thought Process: normal, linear, logical, and goal-oriented Thought Content: Denies paranoid or delusional thoughts. Denied hallucinations, no homicidality andno suicidality. Does not appear to be responding to internalstimuli. Insight: fair Judgment: fair Patient was personally seen by me on the day of the encounter. I reviewed the history and performedthe ahmadi elements of the physical examination. I formulated the plan of care and confirmed this withthe medical student as notedbelow. Exam Physical Exam [...] <Electronically signed by Geo Loomis MD> 11/10/23 8205 [facility] Work Phone: [phone]) 100-389109-05-2024 History and physical note Author Geo Loomis [facility] November 09, 2023 2:13pmNote Date/TimeSept2023 1:40pmDammeron [place], [place] [id number] Psychiatry H&P Signed Patient: Shahla Thapa MR#: [id number] : 1980 Acct:[id number] Age/Sex: 43 / F Adm Date: 4 Loc: Room: [address] [place] [address] Type: ADM IN Attending Dr: Geo Loomis MD Copies to: MD Josette Harper, VACATION PLANNER~ Date of Service: 11/09/2023 HPI History of Present Illness History of present illness: Ms. Thapa is a 43 year old female with a reported history of?depression, anxiety, suicidal ideation, hypertension, vitamin D deficiency, insomnia, SHARI, asthma, LVH, IBS, GERD, and raynauds phenomenonwho presents for inpatient treatment due to?depression and anxiety with suicidal ideation. Reportedly, patient presented to the ER with suicidal ideation. She states that she has not felt right sinceher mother last spring. She has repeated bouts of anxiety and depression. She feels her medications are not working. At the time of the interview, the patient stated she feels okay around others but fall apart when I'm alone . She currently rates her depression and anxiety a 9/10. When asked about the history ofher anxiety and depression the patient states that [...] Her appetite is minimal and she typically onlyeats one meal a day plus or minus [...] toher health. She says her support system [facility] psychiatrist and counselor and her Employment: She [...] and hygiene, calm, cooperative, engaged in the interview.Good eye contact. Normal psychomotor activity. Mental Status: mental status grossly normal Mood: okay Affect: mood-congruent affect Speech and Movement: speech and movement normal and speech clear. Regular rate, rhythm, volume, andtone. Non pressured. Attitude: cooperative Thought Process: linear, logical, and goal-oriented Thought Content: Endorses suicidal ideation and hallucinations (associated withstress). Denies paranoid or delusional thoughts. Does not appear to be responding to internal stimuli. Insight: fair Judgment: fair Patient was personally seen by me on the day of the encounter. I reviewed the history and performedthe ahmadi elements of the physical examination. I formulated the plan of care and confirmed this withthe medical student as notedbeljohanne. [facility] Medical History Essential hypertension Depression [...] of carpal tunnel release of both wrists [place] teeth removed History of cholecystectomy Family History [...] inh inhalation Q4HR PRN shortness of breath orwheezing 04/24/23 [History Confirmed 11/08/23] hydroxyzine pamoate 50 [...] Appearance Clear Urine pH 5.0 Ur Specific Roggen 1.018 Urine Protein Negative Urine Glucose (UA) [...] <Electronically signed by Geo Loomis MD> 11/09/23 1418 [facility] Work Phone: 1(598) 183-413306-27-2024 Evaluation + Plan note* Assessment & Plan Note - Jus Webster MD - 08/31/2023 9:04 AM EDTAssociated Problem(s): Cigarette smoker motivated to quit Counseled on smoking cessation at least 4 minutes. [facility]06-27-2024 Evaluation + Plan note* Assessment & Plan Note - Jus Webster MD - 08/31/2023 9:04 AM EDTAssociated Problem(s): Severe claudication (CMS-HCC) Aspirin Plavix and statin Supervised walking program Smoking cessation Follow-up and 3 months. [facility]06-27-2024 Miscellaneous Notes* Assessment & Plan Note - Jus Webster MD - 08/31/2023 9:04 AM EDTAssociated Problem(s): Cigarette smoker motivated to quit Counseled on smoking cessation at least 4 minutes. * Assessment & Plan Note - Jus Webster MD - 08/31/2023 9:04 AM EDT Associated Problem(s): Severe claudication ([facility]) Aspirin Plavix and statin Supervised walking program Smoking cessation Follow-up and 3 months. documented in this encounterVan [facility] History of Present illness Narrative* Jus Webster MD - 08/31/2023 9:00 AM EDT Images from the original note were not included. To: JOSETTE MANDEL, STEVE-VACATION PLANNER HPI: Shahla Thapa is a 43 y.o. female with Blue [...] History: Past Medical History: Diagnosis Date Alcoholic ([facility]) Anxiety Arthritis Asthma Bipolar disorder ([facility]) Depression Fractures GERD (gastroesophageal reflux disease) HPV (human papilloma virus) infection Hyperlipidemia Hypertension Migraine Obesity Postoperative wound infection 05/22/2019 Past Surgical History: Past Surgical History: Procedure Laterality Date APPLICATION WOUND VAC N/A 05/22/2019 Performed by Boni Ogden MD at [facility] N/A 05/13/2019 Performed by Boni Ogden MD at [facility] OR Cardiac catheterization 07/02/2020 Performed by Va Coy MD at [facility] CARDIAC CATH LABS CARPAL TUNNEL RELEASE Bilateral CHOLECYSTECTOMY Coronary angiogram only N/A 07/02/2020 Performed by Va Coy MD at [facility] CARDIAC CATH LABS DEBRIDEMENT WOUND N/A 05/22/2019 Performed by Boni Ogden MD at [facility] LAPAROSCOPIC SALPINGECTOMY Bilateral 07/20/2022 Performed by Sabina Leung DO at [facility] LIVER BIOPSY Social and Family History: Social [...] Resource Strain: Low Risk (08/03/2021) Received from [facility] Overall Financial Resource Strain (CARDIA) Difficulty of Paying Living Expenses: Not hard at all Food Insecurity: No Food Insecurity (08/31/2023) Hunger Screening Food Insecurity - Worry: Never True Food Insecurity - Inability: Never True Transportation Needs: No Transportation Needs (08/03/2021) Received from [facility] PRAPARE - Transportation Lack of Transportation (Medical): No Lack of Transportation (Non-Medical): No Physical Activity: Inactive (05/31/2020) Exercise Vital Sign Days of Exercise per Week: 0 days Minutes of Exercise per Session: 0 min Stress: No Stress Concern Present (05/31/2020) [place] [employer] - Occupational Stress Questionnaire Feeling of Stress : Not at all Social Connections: Socially Isolated (05/31/2020) Social Connection and Isolation Panel [NHANES] Frequency of Communication with Friends and Family: Never Frequency of Social Gatherings with Friends and Family: Never Attends Church Services: Never Active Member of Clubs or Organizations: No Attends Club or Organization Meetings: Never Marital Status: Interpersonal Safety: Unknown (06/28/2023) Received from [facility] [place] [facility] Environment Fear of Current or Ex-Partner: Not on file Emotionally Abused: Not on file Physically Abused: Not on file Sexually Abused: Not on file Physically or Sexually Abused: Not on file Housing Instability: Unknown (08/03/2021) Received from [facility] Housing Stability Vital Sign Unable to Pay [...] claudication (CMS-HCC) Cigarette smoker motivated to quit Jus Webster MD, EMA, RPVI, FSVS, FACS [facility] [facility] This note was created with the assistance of a speech recognition program. While intending to generate a timely document that accurately reflects the content of the visit, no guarantee can be provided that every grammatical or spelling mistake has been or will be identified or corrected. Thank you for your understanding. documented in this encounterMary Rutan HospitalPlaza Bank [id number] Instructions* Patient Instructions* Jus Webster MD - 08/31/2023 9:00 AM EDT Are You Ready To Kick The Habit? Free Tobacco Cessation Resources [facility] Services [facility] provide all employees with free tobacco cessation services that include: Counseling to understand nicotine addiction Education about medications that can help you successfully quit Assistance with developing a plan to quit Call to set up an individual appointment or find out when group classes will be held: [facility]: [phone] [facility]: [phone] [facility]: [phone] [facility]: [phone] Quit Smoking Action Plan and Resources [facility] offers an eight-week, online smoking cessation plan to all [facility] employees, regardless of whether [employer] [place] is your medical insurance provider. Go to www.[employer]org/employeewellness and click the Health Risk Assessment and Resources link to get started. In the [employer] menu, click Action Plans instead of Health Risk Assessment to access the Quit Smoking Action Plan. Additional smoking cessation resources are also available to all [facility] employees on the [employer] web page at www.[employer]/quitsmoking. [place] Tobacco Cessation Program If [employer] is your medical insurance provider, there are more free resources available to you, including: No copays or deductibles on local tobacco cessation counseling services to help you quit Prescription assistance for tobacco cessation medications to help you quit For details about the tobacco cessation program available to [employer] members, go to www.[employer] (Search: Tobacco Cessation Program). [place] Tobacco Quit Line 8-249-OZNH-NOW ( ) is a toll-free, telephonic service that helps [place] residents quit smoking and using tobacco. It is staffed by experts who tailor a quit plan for you and provide you with advice. [place] Tobacco Quit Line 4-173-JAKO-NOW ( ) is a toll-free, telephonic service that helps [place] residents quit smoking and using tobacco. It is staffed by experts who tailor a quit plan for you and provide you with advice. Two weeks of nicotine replacement therapy may be provided at no charge, if needed. Additional Resources These national organizations also offer free information and resources to help you quit tobacco: [place] [employer]--www.cancer.org/healthy/stayawayfromtobacco [place] [employer]--www.heart.org (Search: Quit Smoking) Centers for Disease Control and Prevention--www.cdc.gov/tobacco [place] Lung Association--www.lungusa.org documented in this encounterPorter Medical CenterLayerGloss [id number] Hospital Discharge instructions Additional Instructions Try your other anxiety medication first For continued anxiety despite your other medication you may take 1 lorazepam every 6-8 hours Follow-up as scheduled with the counseling center I also gave you the hope number to call if needed Return to the ER for thoughts of hurting yourself or others severe anxiety or any other concernsW[facility] Work Phone: [phone]) 533-413304-29-2024 History of Present illness Narrative* Halina Lizarraga, DOWEL POINTER-CNM - 07/03/2023 10:30 AM EDT Shahla Thapa is a 43 y.o. 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 She is postmenopausal. Hysterectomy: no If [...] 2 Past Medical History: Diagnosis Date Alcoholic ([facility]) Anxiety Arthritis Asthma Bipolar disorder ([facility]) Depression Fractures GERD (gastroesophageal reflux disease) HPV (human papilloma virus) infection Hyperlipidemia Hypertension Migraine Obesity Postoperative wound infection 05/22/2019 Past Surgical History: Procedure Laterality Date APPLICATION WOUND VAC N/A 05/22/2019 Performed by Boni Ogden MD at [facility] N/A 05/13/2019 Performed by Boni Ogden MD at [facility] OR Cardiac catheterization 07/02/2020 Performed by Va Coy MD at [facility] CARDIAC CATH LABS CARPAL TUNNEL RELEASE Bilateral CHOLECYSTECTOMY Coronary angiogram only N/A 07/02/2020 Performed by Va Coy MD at [facility] CARDIAC CATH LABS DEBRIDEMENT WOUND N/A 05/22/2019 Performed by Boni Ogden MD at [facility] LAPAROSCOPIC SALPINGECTOMY Bilateral 07/20/2022 Performed by Sabina Leung DO at [facility] LIVER BIOPSY Family History Problem Relation [...] use of lubrication w/intercourse. RTO for annual flower cutter exam and / or PRN. YENNY Heard 07/03/23 1132 YENNY Heard 07/03/23 1402 documented in this encounterVan Wert [facility] Hospital03-14-2024 History of Present illness Narrative* Jus Webster MD - 05/18/2023 3:30 PM EDT Images from the original note were not included. [facility] [address] [facility] [id number] Subjective: Patient ID: Shahla Thapa is a 43 y.o. female. Chief Complaint Chief Complaint Patient presents with Hospital Follow-up [facility] History of Present Illness: 43 F [...] Rfl: Past Medical History: Diagnosis Date Alcoholic ([facility]) Anxiety Arthritis Asthma Bipolar disorder ([facility]) Depression Fractures GERD (gastroesophageal reflux disease) HPV (human papilloma virus) infection Hyperlipidemia Hypertension Migraine Obesity Postoperative wound infection 05/22/2019 Past Surgical History: Procedure Laterality Date APPLICATION WOUND VAC N/A 05/22/2019 Performed by Boni Ogden MD at [facility] N/A 05/13/2019 Performed by Boni Ogden MD at [facility] OR Cardiac catheterization 07/02/2020 Performed by Va Coy MD at [facility] CARDIAC CATH LABS CARPAL TUNNEL RELEASE Bilateral CHOLECYSTECTOMY Coronary angiogram only N/A 07/02/2020 Performed by Va Coy MD at [facility] CARDIAC CATH LABS DEBRIDEMENT WOUND N/A 05/22/2019 Performed by Boni Ogden MD at [facility] LAPAROSCOPIC SALPINGECTOMY Bilateral 07/20/2022 Performed by Sabina Leung DO at [facility] LIVER BIOPSY Family History Problem Relation [...] min Stress: No Stress Concern Present (05/31/2020) [place] [employer] - Occupational Stress Questionnaire Feeling of Stress : Not at all Social Connections: Socially Isolated (05/31/2020) Social Connection and Isolation Panel [NHANES] Frequency of Communication with Friends and Family: Never Frequency of Social Gatherings with Friends and Family: Never Attends Church Services: Never Active Member of Clubs or [...] cessation PVR Follow up in 2 weeks .Jus Webster MD, EMA Jus Webster MD documented in this encounterVan Wert County Hospital02-10-2024 Evaluation note* Encounter Date Diagnosis Assessment [...] warm Epsom salt soaks 4 times a day.Avoid use of ointments as it may prolong [...] understanding and is agreeable to treatment plan Apr,Elevated blood pressure reading (ICD-10 - R03.0) Patient [...] understanding and is agreeable with treatment plan [facility] 12-22-2023 Evaluation note* Encounter Date Diagnosis Assessment Notes Treatment Notes Treatment Clinical Notes Feb, Gastroesophageal ref lux disease, esophagitis presence not specified (ICD-10 - K21.9) Controlled. Continue current care. Feb,Essential hypertension (ICD-10 - I10) BP controlled. After discussing risks, beneftis, possible SEs, and alternative treatment options, she opts to continue with olmesartan. She will call 911 for s/s of angioedema (discussed). Stop the medication and notify me immediately of any other SEs. Feb,epression with anxiety (ICD-10 - F41.8) Controlled. F/u with psychiatry as scheduled. Immediate medical attention for any SI/HI or other change/worsening in the meantime. Feb,Vitamin D deficiency (ICD-10 - E55.9) Controlled on most recent labs. Continue current care. Feb,Raynaud's phenomenon without gangrene (ICD-10 - I73.00) Symptmos most consistent with Raynaud's. Recurrent CTS seemingly less likely. Given insturctions for supportive care. Notify me immediately of any change/worsening. Feb,igarette nicotine dependence with other nicotine-induced disorder (ICD-10 - F17.218) Smoking cessation strongly encouraged. [facility] Other 10-17-2023 Evaluation note* Encounter Date Diagnosis Assessment Notes Treatment Notes Treatment Clinical Notes Dec, Acute non-recurrent maxillary si nusitis (ICD-10 - J01.00) Patient declines/refusing testing today in office. Discussed diagnosis with patient. Will today for bacterial sinusitis based on physical exam and duration of symptoms. Take antibiotic as prescribed, complete entire course of therapy even if symptoms resolve. Reviewed allergies and recent antibiotic use with patient. Advised patient to use otc Coricidin HBP as needed, Rx of Flonase. Supportive care asdirected, push fluids and rest, Tylenol and/or Motrin as directed for discomfort/fever, warm moist compress over sinuses several times a day, cool mist humidification, nasal saline spray as directed. Symptoms should improve in the next 3 days, if symptoms persist follow up with PCP. Immediate eval for warning s/sx as discussed. Patient verbalizes understanding and is agreeable to treatment plan [facility] 09-19-2023 Evaluation note* Encounter Date Diagnosis Assessment Notes Treatment Notes Treatment Clinical Notes Nov, Irregular menses (ICD-10 - N92.6 ) Patient states this isn't necessarily new, but perhaps a little more irregular as of late. Will send for screening labs, including an FSH level, prolactin, and TSH. Further recommendations pending. Nov,Weight gain (ICD-10 - R63.5) Suspect this is secondary to her olanzapine. I will send her for labs. We've had discussion regarding healthy eating and exercise. She may need to consider seeing a health professional and discussing alternative medication options with her psychiatrist. Nov,onstipation, unspecified constipation type (ICD-10 - K59.00) Possible that this too is SEs to her olanzapine and/or Fetzima. I will give her colace to use for now. Work on fluid and fiber intake. Further recommendations pending her progress. Nov,Screening for metabolic disorder (ICD-10 - Z13.228) Nov,Screening for cardiovascular condition (ICD-10 - Z13.6) Nov,Screening for deficiency anemia (ICD-10 - Z13.0) Nov,igarette nicotine dependence with other nicotine-induced disorder (ICD-10 - F17.218) Smoking cessation strongly encouraged. [facility] Other 09-11-2023 Evaluation note* Encounter Date Diagnosis Assessment Notes Treatment Notes Treatment Clinical Notes Nov, Essential hypertension (ICD-10 - I10) [facility] Other 06-21-2023 Evaluation note* Encounter Date Diagnosis Assessment Notes Treatment Notes Treatment Clinical Notes Aug, Gastroesophageal ref lux disease, esophagitis presence not specified (ICD-10 - K21.9) Controlled. Continue current care. Aug,Wellness examination (ICD-10 - Z01.89) Overall, patient doing well. Encouraged to work on healthy eating, exercise, and weight loss. I will have her get screening labs prior to her next visit. She is up to date on mammogram. No family history of colon CA. Smoking cessation strongly encouraged. Aug,Essential hypertension (ICD-10 - I10) BP now controlled. After discussing risks, beneftis, possible SEs, and alternative treatment options, she opts to continue with olmesartan. She will call 911 for s/s of angioedema (discussed). Stop the medication and notify me immediately of any other SEs. Aug,epression with anxiety (ICD-10 - F41.8) Controlled. F/u with psychiatry as scheduled. Immediate medical attention for any SI/HI or other change/worsening in the meantime. Aug,Vitamin D deficiency (ICD-10 - E55.9) New labs prior to f/u. Adjustments pending. Aug,Exertional dyspnea (ICD-10 - R06.09) I inherited this patient with a diagnosis of asthma/COPD, but from what I can gather, she's had no recent PFTs. These were previously ordered but she never had them done, as her symptoms seemed to improve as her anxiety improved. I've still recommended PFTs but she declines for now. Immediate medical attention for change/worsening. Aug,igarette nicotine dependence with other nicotine-induced disorder (ICD-10 - F17.218) Smoking cessation strongly encouraged. [facility] Other 03-21-2023 Evaluation note* Encounter Date Diagnosis Assessment Notes Treatment Notes Treatment Clinical Notes May, Vitamin D deficiency (ICD-10 - E 55.9) [facility] Other 03-15-2023 Evaluation note* Encounter Date Diagnosis Assessment Notes Treatment Notes Treatment Clinical Notes May, Essential hypertension (ICD-10 - I10) BP borderline today. She had several elevated readings in the hospital and has had high readings off and on at home. After discussing risks, beneftis, possible SEs, and alternative treatment options,she opts to start olmesartan. She will call 911 for s/s of angioedema (discussed). Stop the medication and notify me immediately of any other SEs. May,epression with anxiety (ICD-10 - F41.8) Hospital discharge documentation reviewed in full. Patient is improving and feels well at this time. She denies any SI/HI but agrees to again seek immediate medical attention in the event that this changes or for any other change/worsening in her condition. She reports no alcohol consumption since [facility] -- should she find herself struggling with alcohol, she agrees to let me know right away. May,Exertional dyspnea (ICD-10 - R06.09) I inherited this patient with a diagnosis of asthma/COPD, but from what I can gather, she's had no recent PFTs. Will update those now. May recommend she get a nebulizer pending our findings. Immediate medical attention for any CP, worsening dyspnea, or other change/worsening in her condition in themeantime. Smoking cessation strongly encouraged. May,igarette nicotine dependence with other nicotine-induced disorder (ICD-10 - F17.218) Smoking cessation strongly encouraged. [facility] Other 03-11-2023 Progress note Author Geo Loomis [facility] May 14, 2022 11:17amNote Date/TimeMarch 2022 11:[place] [address] Psychiatry Progress Note Signed Patient: Shahla Ruelas MR#: [id number] : 1980 Acct:[id number] Age/Sex: 42 / F Adm Date: 3 Loc: Room: [address] [place] [address] Type : ADM IN Attending Dr: Geo [...] Geo Loomis MD> 05/14/22 1117 [facility] Work Phone: 1(364) 106-194103-10-2023 Progress note Author Geo Loomis [facility] May 13, 2022 12:04pmNote Date/TimeMar2022 10:47[place] [address] Psychiatry Progress Note Signed Patient: Shahla Ruelas MR#: [id number] : 1980 Acct:[id number] Age/Sex: 42 / F Adm Date: 3 Loc: 1S Room: [address] [place] [address] Type : ADM IN Attending Dr: Geo [...] out of 10. Patient describes her mood asbetter and normal, however she does endorse increased [...] history and performedthe ahmadi elements of the physical examination. I formulated the plan of care and confirmed this withthe medical student as notedbelow. Patient reported feeling better at this time. Reported some auditory hallucinations that she statedthat she may have misinterpreted. Overall symptoms have [...] signed by Geo Loomis MD> 05/13/22 1204 [facility] Work Phone: 1(704) 560-952303-09-2023 Progress note Author Geo Loomis [facility] May 12, 2022 2:13pmNote Date/TimeMarch 2022 9:57[place] [address] Psychiatry Progress Note Signed Patient: Shahla Ruelas MR#: [id number] : 1980 Acct:[id number] Age/Sex: 42 / F Adm Date: 3 Loc: Room: [address] [place] [address] Type : ADM IN Attending Dr: Geo [...] out of 10. 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 Patient claims that [...] history and performedthe ahmadi elements of the physical examination. I formulated the plan of care and confirmed this withthe medical student as notedbelow. Patient reported that [...] <Electronically signed by Geo Loomis MD> 05/12/22 141 [facility] Work Phone: [phone]) 520-877803-08-2023 History and physical note Author Geo Loomis [facility] May 11, 2022 10:39amNote Date/TimeMarch 2022 10:39[place] [address] Psychiatry H&P Signed Patient: Shahla Ruelas MR#: [id number] : 1980 Acct:[id number] Age/Sex: 42 / F Adm Date: 3 Loc: 1S Room: 6H2930-4 Type: ADM IN Attending Dr: Geo Loomis MD Copies to: MD Geena Harperar Hopson Abdias, ~ Date of Service: 05/11/2022 HPI History [...] issues, decreased appetite, feelings of hopelessness and suicidalthoughts. She denied any recent hallucinations. Past psych [...] CNXI: Shoulder shrug strong, equal bilaterally, CNXII: Tongueprotrusion midline, movement symmetrical. Extrem: normal to inspection [...] Cloudy A Urine pH 6.0 Ur Specific Roggen 1.028 Urine Protein 30 H Urine Glucose [...] signed by Geo Loomis MD> 05/11/22 1039 [facility] Work Phone: 1(436) 811-419701-10-2023 Evaluation note* Encounter Date Diagnosis Assessment Notes [...] treatment. Call at any time with questions/concerns. [employer] Other 12-12-2022 History of Present illness Narrative* Roxanna Dunn MD - 02/14/2022 12:03 PM EST This encounter was opened in error. Patient was a No-Show. Please disregard. Called, directly to busy signal. Roxanna Sarmiento MD documented in this [id number] Evaluation note* Encounter Date Diagnosis Assessment Notes Treatment Notes Treatment Clinical Notes Nov, Mild intermittent asthma without complication (ICD-10 - J45.20) [employer] Other 06-30-2022 History of Present illness Narrative* [...] and Staging Information: SPECIMEN FOR SURGICAL PATH: [id number] Order: [id number] Collected 07/30/2021 15:54 Status: Final result Visible to patient: Yes (not seen) Dx: Liver cyst; Cyst of gallbladder 0 Result Notes Component Case Report Surgical Pathology Report Case: [id number] Authorizing Provider: Roxanna Sarmiento MD Collected: 07/30/2021 1554 Ordering Location: [facility] Main OR Received: 08/03/2021 1030 Pathologist: [...] identified lymph nodes or masses grossly. Sections: Shipping Manager A1. Fibrotic tissue (X) B. Requisitioned as [...] of tumor, it is inked green. Sections: Shipping Manager B1. Cystic lesion, fibrotic area (X) B2-B6. [...] Kortney Ivey M.D Clinical Information Resulting Agency [facility] [place] Specimen Collected: 07/30/21 15:54 Last Resulted: 08/05/21 08:46 Order Details View Encounter Lab and Collection Details Routing Result History Scans on Order [id number] Document on 08/05/2021 8:46 AM by Marc Ricketts, Treatment Recommendations and NCCN: Plan no surgical intervention needed at this time. Follow up in 02/[address] Sarmiento The above recommendations were based on NCCN guidelines, as well as consideration of current national standards and review of the literature. Nicole Garcia RN documented in this [id number] [facility] - History and Physical ? Patient Name: Shahla Ruelas Patient Referring Provider: No referring provider defined for this encounter. ??? HPI 41 yo female here for post-op visit. Pt had biliary cyst sp lap mykel and underwent cystectomy and yovani-en-y hepaticoJ w/Dr. [...] cholangiogram, yovani-en-y hepaticojejunostomyx2, vascularized opmental pledget.; Surgeon: Roxanna Sarmiento MD; Location: PERIOPERATIVE SERVICES; Service: General * LAPAROSCOPY, DIAGNOSTIC N/A 07/30/2021 ??? Procedure: LAPAROSCOPY, DIAGNOSTIC; Surgeon: Roxanna Sarmiento MD; Location: PERIOPERATIVE SERVICES; Service: General [...] 4 mg/0.1 mL nasal liquid Use 1 Baker in one nostril (alternate sides) as needed [...] ??? T Prot (more content not included)...[facility] [id number] Evaluation note* Encounter Date Diagnosis Assessment Notes Treatment Notes Treatment Clinical Notes Aug, HTN (hypertension) (ICD-10 - I10 ) BP running much lower with her recent weight loss following surgery. I will hold on having her restart her BP medication. She will monitor at home and bring cuff/logs to f/u with recommendations pending. Aug,Wellness examination (ICD-10 - Z00.00) Overall, patient doing well. I will update her labs next time I see her. I've encouraged her to reconsider a mammogram (declining for now). Chronic care as detailed below. Aug,LVH (left ventricular hypertrophy) (ICD-10 - I51.7) Found during her workup. She is due for repeat Echo but we will wait until her next visit with me, as she is still recovering from her recent surgery to remove cysts from the abdomen. Aug,epression with anxiety (ICD-10 - F41.8) Controlled. F/u with psych as scheduled. Immediate medical attention for any SI/HI or other change/worsening. Aug,Gastroesophageal reflux disease, esophagitis presence not specified (ICD-10 - K21.9) Controlled. Continue current care. Aug,Vitamin D deficiency (ICD-10 - E55.9) Labs from 02/2021 reviewed. Will have her restart supplementing with Vit D. Aug,Iron deficiency (ICD-10 - E61.1) Aug,bstructive sleep apnea (adult) (pediatric) (ICD-10 - G47.33) Patient is not treating her SHARI, but she has lost significant weight. Will need to consider f/u with sleep medicine once she is fully healed from her surgery -- will discuss when I see her back in 6 months. [employer] Other 06-13-2022 History of Present illness Narrative* Roxanna Dunn MD - 08/16/2021 1:09 PM EDT Phone numbers Preferred Documentation: Mode: Telephone Patient Patient Work Phone: Patient Cell Preferred phone: [phone] Consent: I confirmed patient understanding of the risks and benefits of telehealth visits and obtained consent to proceed with the telehealth visit. Location of Patient: Home of patient Surgery Follow Up Feeling well since surgery. Still hurting but she is starting to feel better. [facility] for staple removal. SPECIMEN FOR SURGICAL PATH: [id number] Order: [id number] Collected 07/30/2021 15:54 Status: Final result Visible to patient: Yes (not seen) Dx: Liver cyst; Cyst of gallbladder 0 Result Notes Component Case Report Surgical Pathology Report Case: [id number] Authorizing Provider: Roxanna Sarmiento MD Collected: 07/30/2021 1554 Ordering Location: [facility] Main OR Received: 08/03/2021 1030 Pathologist: [...] identified lymph nodes or masses grossly. Sections: Shipping Manager A1. Fibrotic tissue (X) B. Requisitioned as [...] of tumor, it is inked green. Sections: Shipping Manager B1. Cystic lesion, fibrotic area (X) B2-B6. 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 Follow up in 6 months with a televisit in person if needed. Roxanna Sarmiento MD, FACS documented in this [id number] History of Present illness Narrative* Josephine Osborn MD - 08/10/2021 3:25 PM EDT Images from the original note were not included. [facility] New Patient - History and Physical Patient Name: Shahla Ruelas Patient Referring Provider: No referring provider defined for this encounter. HPI 41 yo female here for post-op visit. Pt had biliary cyst sp lap mykel and underwent cystectomy and yovani-en-y hepaticoJ w/Dr. [...] cholangiogram, yovani-en-y hepaticojejunostomyx2, vascularized opmental pledget.; Surgeon: Roxanna Dunn MD; Location: PERIOPERATIVE SERVICES; Service: General LAPAROSCOPY, DIAGNOSTIC N/A 07/30/2021 Procedure: LAPAROSCOPY, DIAGNOSTIC; Surgeon: Roxanna Sarmiento MD; Location: PERIOPERATIVE SERVICES; Service: General [...] 4 mg/0.1 mL nasal liquid Use 1 Baker in one nostril (alternate sides) as needed [...] Cl CO2 Gap Glu BUN Cr Ca 08/03/21 0050 138 3.8 103 25 14 [...] Bili T Bili Alk Phos ALT AST 08/03/21 0050 4.5 2.7 0.20 0.6 41 [...] Risk protocol implemented: No documented in this [id number] Hospital Discharge instructions* Discharge Instructions* Meenakshi Weeks PA-C - 08/04/2021 8:31 AM EDT GENERAL SURGERY DISCHARGE INSTRUCTIONS C O N F I D E N T I A L I N F O R M A T I O N Shahla Ruelas [id number] The following is a brief overview of [...] (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 Holding home losartan. Pulm: Resp head of business development protocol, Encourage IS x10/hr, OOB and ambulation GI: Continue GI soft diet. Cont nexium daily, carafate. /FEN: HLIV Endocrine: no hx of glyemic issues ID: No abx indicated Proph: lovenox daily and SCDs Dispo: DC to home today Patient was seen with chief resident, Dr. Osborn and d/w Attending Surgeon Dr. Sarmiento. --- Meenakshi Weeks PA-[facility] Surgery PA-C * Varsha Solis RN [...] discharge planning needs as warranted. MILAN Ferrell, dough raiser * Nicole Bello PA-C - 08/03/2021 7:19 [...] Glu BUN Cr Ca Mg PO4 08/03/21 005 138 3.8 103 25 14 88 3 0.65 8.7 08/03/21 0050 1.9 08/02/21 001 1.9 08/02/21 001 138 4.2 106 25 [...] vital signs. Holding home losartan. Pulm: Resp head of business development protocol, Encourage IS x10/hr, OOB and ambulation GI: Advance to GI soft diet. Cont nexium daily, carafate. /FEN: cont LR at 75/hr. Endocrine: no hx of glyemic issues ID: No abx indicated Proph: lovenox daily and SCDs Dispo: Continue on RNF Patient was seen with chief resident Dr. Osborn and discussed with attending surgeon Dr. Sarmiento. --- JAIRO DouglasC General Surgery PGY3 Blue Pager: [phone] * Tamara Jurado MD - 08/02/2021 8:53 AM EDT Images from the original note were not included. [facility] PROGRESS NOTE Interval history/Events: No acute events overnight Pain adequately controlled with NAILHEAD OPERATOR Tolerating clear liquid Using IS Drain [...] vital signs. Holding home losartan. Pulm: Resp head of business development protocol, Encourage IS x10/hr, OOB and ambulation GI: FLD. Cont nexium daily, carafate. /FEN: cont LR at 75/hr. TOV today. Endocrine: no hx of glyemic issues ID: No abx indicated Proph: lovenox daily and SCDs Dispo: Continue on RNF Patient d/w Attending Surgeon Dr. Sarmiento --- Tamara Jurado MD General Surgery PGY3 Blue Pager: [phone] * Madeleine Hooks MD - 08/01/2021 8:06 AM EDT Images from the original note were not included. BLUE SURGERY PROGRESS NOTE Interval history/Events: No acute events overnight Pain adequately controlled with NAILHEAD OPERATOR Mild nausea but improved Tolerating clear [...] Cr Ca Mg PO4 08/01/21 000 1.9 08/01/216 135 4.5 105 24 11 [...] PRN .NO ORAL PAIN MEDS WHILE ON NAILHEAD OPERATOR/EPIDURAL 1 Each PRN naloxone 0.4 mg [...] 08/01/2021. Plan: Neuro/Pain: scheduled tylenol, robaxin. Dilaudid NAILHEAD OPERATOR. Cont home trazodone and fluoxetine CV: Monitor vital signs Pulm: Resp head of business development protocol, Encourage IS x10/hr, OOB and ambulation GI: NPO for possible PTHC today. Consult IR for PTHC given bile leak ( discussed with ED vice president of business development who will discuss with IR team). Cont nexium daily, carafate /FEN: cont LR at 75/hr. Voiding spontaneously Endocrine: no hx of glyemic issues ID: No abx indicated Proph: lovenox daily and SCDs Dispo: Continue on RNF Patient d/w Attending Surgeon Dr. Sarmiento --- Madeleine Hooks MD General Surgery PGY3 Blue Pager: [phone] * Tamara Jurado MD - 07/31/2021 8:55 AM EDT Images from the original note were not included. BLUE SURGERY PROGRESS NOTE Subjective - NAEON - some abdominal pain on NAILHEAD OPERATOR - some indigestion this morning - [...] 9.5 3.45 9.9 28.7 83 15.1 207 07/31/2142 9.9 30.6 07/30/212009 9.5 29.5 07/30/21 1738 [...] PRN .NO ORAL PAIN MEDS WHILE ON NAILHEAD OPERATOR/EPIDURAL 1 Each PRN naloxone 0.4 mg [...] for nausea; continue carafate - Tylenol, Robaxin, NAILHEAD OPERATOR - LR 75, daily labs - [...] Torsten Jurado MD PGY1 documented in this [id number] Note* Care Plan Note - Oly High [...] adult patient will be met Outcome: Progressing [id number] Miscellaneous Notes* Care Plan Note - Oly [...] routine care procedure Outcome: Progressing Note: Call junior within reach. Problem: Safety: Goal: Patient will [...] year old female Surgical Contact Serial Number: [id number] Preoperative Diagnosis: Cyst of gallbladder [K82.8] Liver [...] Mercedes Soliman; Anya Fletcher; Juan Jon, VITA [place] Repairer Nurse: Vitaly Reyes, RN; Kraig Espinal; Rosa Seo, VITA; Yumiko Haji, RN; Irina Marie, RN; Juany Higginbotham director of mediaPipefitter: Madeleine Hooks MD Anesthesia: General Anesthesiologist: Neil Rodriguez MD; Uriel Hathaway DO CAA: Rina Childress GAS MAIN FITTER HELPER: Adrian Bermudez DOWEL POINTER-GAS MAIN FITTER HELPER; Jewel Vogel DOWEL POINTER-GAS MAIN FITTER HELPER; Mariel Ireland DOWEL POINTER-GAS MAIN FITTER HELPER Chief Cruiser: Al Mascorro MD; Jean Ojeda MD Specimen(s): ID Type Source Tests Collected by Time Destination 1 : Falciform Tissue Liver SPECIMEN FOR SURGICAL PATH Roxanna Sarmiento MD 07/30/2021 1554 2 : biliary cystadenoma Tissue Liver SPECIMEN FOR SURGICAL PATH Roxanna Sarmiento MD 07/30/2021 1719 3 : right hepatic duct polyp Tissue Liver SPECIMEN FOR SURGICAL PATH Roxanna Sarmiento MD 07/30/2021 1813 A : liver cyst fluid Fluid Fluid, Cyst (Cytology) ANAEROBIC CULTURE, MISC, AFB CULTURE/SMEAR, CYTOLOGY FLUID Roxanna Sarmiento MD 07/30/2021 1619 Estimated Blood Loss: [...] biliary cystadenoma Surgeon: Diamond Larson MD Co-Surgeon: Roxanna Sarmiento MD Field Collector: Madeleine Hooks MD (general surgery resident) Anesthesiologist: [...] were discussed with the patient and/or legal packaging sales representative. The risks, benefits and alternatives were reviewed. Questions regarding anesthesia were answered. Patient and/or legal packaging sales representative knows such anesthetics and procedures [...] were discussed with the patient and/or legal packaging sales representative. The risks, benefits and alternatives were reviewed. Questions regarding blood transfusions were answered. The patient /or the patient s legal packaging sales representative agree with the plan for transfusion of blood and/or blood components. documented in this [id number] Note* Care Plan Note - Antoinette Elmore RN - 08/03/2021 4:53 PM EDT Problem: Routine Care: Goal: Patient care will be managed and maintained throughout hospital stay per unit specific routine care procedure Outcome: Progressing Note: Call junior within reach. Problem: Safety: Goal: Patient will [...] adult patient will be met Outcome: Progressing [id number] Consult note* Lavinia Jones, PT - 08/03/2021 [...] Dep Max Mod Min CG CS DS IA I Comment Supine to sit x Sit [...] With Patients permission ordered no equipment via [employer] Order. If any questions contact [facility] DME Provider at [phone]. 4 Clicks Basic Mobility PT 08/03/2021 Difficulty turning [...] Care Lavinia Jones, PT , DPT, CLT #[phone] NA = Not Assessed, I = Independent, IA = Modified Independent, Sup = Supervised, Set up = Physical Assistance for Set-up Only, Min = Minimal Assistance, Mod = Moderate Assistance, Max = Maximal assistance; Dep = Dependent; AROM = Active Range of Motion; PROM = Passive Range of Motion; MMT = Manual Muscle Test [id number] Consult note* Lavinia Jones, PT - 08/03/2021 [...] Dep Max Mod Min CG CS DS IA I Comment Supine to sit x Sit [...] With Patients permission ordered no equipment via [employer] Order. If any questions contact [facility] DME Provider at [phone]. 6 Clicks Basic Mobility PT 08/03/2021 Difficulty [...] Care Lavinia Jones, PT , DPT, CLT #[phone] NA = Not Assessed, I = Independent, IA = Modified Independent, Sup = Supervised, Set [...] Dep Max Mod Min CG CS DS IA I Set-Up Comment Feeding x Grooming/Hygiene x Bathing:UB x Bathing:LB x Dressing:UB x Dressing: LB x Toileting x Transfers/Bed Mobility: Assistance Level NA Dep Max Mod Min CG CS DS IA I Set-Up Comment Toilet Transfers x Bed Transfers x Bed Mobility x Dynamic standing x Endurance for Self Care: Good Static Sitting Balance: WFL Dynamic Sitting Balance: WFL Patient/Family Education: Instructed patient in roles of therapy Patient up in bed with call light in reach. . DME: With Patients permission ordered no equipment via [employer] Order. If any questions contact [facility] DME Provider at [phone]. Progressive Mobility Level: 4 6 Clicks Daily [...] Guard Assist/Supervision 4 - Non = Modified Jenkins/Independent ASSESSMENT: Patient is functionally appropriate for discharge [...] NA = Not Assessed, I = Independent, IA = Modified Independent, Sup = Supervised, Set [...] OBJECTIVE: Appearance: drain x 1, reyes, IV, NAILHEAD OPERATOR Behavior: Awake, pleasant, cooperative, agreeable to therapy Pain: Site/Location: stomach; Pain Scale: 6/10 Pain Relief Interventions Implemented: Positioning and Rest, pt utilizes NAILHEAD OPERATOR PRN, RN aware Mobility NA Dep Max Mod Min CG CS DS IA I Comment Roll to right sidelying x [...] be seen 5-7 times a week Zoya Anna, PT NA = Not Assessed, I = Independent, IA = Modified Independent, Sup = Supervised, Set [...] and benefits of treatment Appearance: Oxygen, IV, NAILHEAD OPERATOR, Drain JANETT and Reyes Alertness: Drowsy Affect: flat Cooperation/Behavior: cooperative Communication: Able to express needs with increased processing time Pain: Pain ratin/10, Location: abdomen Pain Relief Interventions Implemented: Positioning and activity Self Care: Assistance Level Dep Max Mod Min CG CS DS IA I Set-Up Comment Feeding x Grooming/Hygiene x Standing sink side Bathing:UB x Anticipated, recommend seated Bathing:LB x Anticipated, recommend seated Dressing:UB x Dressing: LB x Socks Toileting x Reyes Transfers/Bed Mobility: Assistance Level Dep Max Mod Min CG CS DS IA I Set-Up Comment Toilet Transfers Bed Transfers [...] coughing for pain control, use of call junior for fall prevention Patient up in bed [...] Guard Assist/Supervision 4 - Non = Modified Jenkins/Independent ASSESSMENT: Anticipate patient will be appropriate for [...] development of plan and goals. Josephine Hunter, RUBY NA = Not Assessed, I = Independent, IA = Modified Independent, Sup = Supervised, Set [...] you Patient Identified Goal(s): To return home RESIDENT CARE DIRECTOR Status: + drive, I 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 0 steps to bedroom/bathroom Assistance available: Spouse can assist PRN Equipment available: none OBJECTIVE: Appearance: Oxygen, IV, NAILHEAD OPERATOR, Drain and Reyes Behavior: Drowsy Oriented x 4 Follows multple step commands consistently and without cues Pain: Site/Location: abdomen; Pain Scale: 7/10 Pain Relief Interventions Implemented: Encouraged patient to use NAILHEAD OPERATOR Passive ROM: Not formally tested however [...] With Patients permission ordered no equipment via [employer] Order. If any questions contact [facility] DME Provider at [phone]. 6 Clicks Basic Mobility PT 07/31/2021 Difficulty [...] NA = Not Assessed, I = Independent, IA = Modified Independent, Sup = Supervised, Set up = Physical Assistance for Set-up Only, Min = Minimal Assistance, Mod = Moderate Assistance, Max = Max assistance; Dep = Dependent; AROM = Active Range of Motion; PROM = Passive Range of Motion; MMT = Manual Muscle Test; LE = Lower Extremity documented in this [id number] Consult note* Sharee Herndon, OT - 08/03/2021 [...] Dep Max Mod Min CG CS DS IA I Set-Up Comment Feeding x Grooming/Hygiene x Bathing:UB x Bathing:LB x Dressing:UB x Dressing: LB x Toileting x Transfers/Bed Mobility: Assistance Level NA Dep Max Mod Min CG CS DS IA I Set-Up Comment Toilet Transfers x Bed Transfers x Bed Mobility x Dynamic standing x Endurance for Self Care: Good Static Sitting Balance: WFL Dynamic Sitting Balance: WFL Patient/Family Education: Instructed patient in roles of therapy Patient up in bed with call light in reach. . DME: With Patients permission ordered no equipment via [employer] Order. If any questions contact [facility] DME Provider at [phone]. Progressive Mobility Level: 4 6 Clicks Daily [...] Guard Assist/Supervision 4 - Non = Modified Jenkins/Independent ASSESSMENT: Patient is functionally appropriate for discharge [...] NA = Not Assessed, I = Independent, IA = Modified Independent, Sup = Supervised, Set up = Physical Assistance for Set-up Only, Min = Minimal Assistance, Mod = Moderate Assistance, Max = Max assistance; Dep = Dependent; AROM = Active Range of Motion;PROM=Passive Rangeof Motion; MMT = Manual Muscle Test; UB = Upper Body; LB = Lower Body T [id number] Note* Care Plan Note - Rayshawn Shaw [...] adult patient will be met Outcome: Progressing [id number] Note* Care Plan Note - Keiko Zhang [...] 08/02/202145 by Keiko Zhang RN Outcome: Progressing 08/02/202144 by Keiko Zhang RN Outcome: Progressing Goal: Understanding of proper administration and use of medicines will be achieved 08/02/2021 0945 by Keiko Zahng RN Outcome: Progressing 08/02/2021943 by Keiko Zhang [...] of the adult patient will be met 08/02/202145 by Keiko Zhang RN Outcome: Progressing 08/02/2021 09 by Keiko Zhang RN Outcome: Progressing [id number] Note* Care Plan Note - Dinorah Palencia [...] adult patient will be met Outcome: Progressing [id number] Consult note* Zoya Anna, PT - 08/01/2021 3:20 PM EDT PHYSICAL THERAPY PROGRESS SUMMARY Patient seen from 1452 to 1520 on 8A unit for 28 minute treatment. SUBJECTIVE: Patient Subjective/Goals: It feels good to get up and get out OBJECTIVE: Appearance: drain x 1, reyes, IV, NAILHEAD OPERATOR Behavior: Awake, pleasant, cooperative, agreeable to therapy Pain: Site/Location: stomach; Pain Scale: 6/10 Pain Relief Interventions Implemented: Positioning and Rest, pt utilizes NAILHEAD OPERATOR PRN, RN aware Mobility NA Dep Max Mod Min CG CS DS IA I Comment Roll to right sidelying x [...] NA = Not Assessed, I = Independent, IA = Modified Independent, Sup = Supervised, Set up = Physical Assistance for Set-up Only, Min = Minimal Assistance, Mod = Moderate Assistance, Max = Maximal assistance; Dep = Dependent; AROM = Active Range of Motion; PROM = Passive Range of Motion; MMT = Manual Muscle Test [id number] Note* Care Plan Note - Dinorah Palencia [...] adult patient will be met Outcome: Progressing [id number] Consult note* Josephine Hunter, OT - 07/31/2021 [...] and benefits of treatment Appearance: Oxygen, IV, NAILHEAD OPERATOR, Drain JANETT and Reyes Alertness: Drowsy Affect: flat Cooperation/Behavior: cooperative Communication: Able to express needs with increased processing time Pain: Pain ratin/10, Location: abdomen Pain Relief Interventions Implemented: Positioning and activity Self Care: Assistance Level Dep Max Mod Min CG CS DS IA I Set-Up Comment Feeding x Grooming/Hygiene x Standing sink side Bathing:UB x Anticipated, recommend seated Bathing:LB x Anticipated, recommend seated Dressing:UB x Dressing: LB x Socks Toileting x Reyes Transfers/Bed Mobility: Assistance Level Dep Max Mod Min CG CS DS IA I Set-Up Comment Toilet Transfers Bed Transfers [...] coughing for pain control, use of call junior for fall prevention Patient up in bed [...] Guard Assist/Supervision 4 - Non = Modified Jenkins/Independent ASSESSMENT: Anticipate patient will be appropriate for [...] NA = Not Assessed, I = Independent, IA = Modified Independent, Sup = Supervised, Set up = Physical Assistance for Set-up Only, Min = Minimal Assistance, Mod = Moderate Assistance, Max = Max assistance; Dep = Dependent; AROM = Active Range of Motion;PROM=Passive Rangeof Motion; MMT = Manual Muscle Test; UB = Upper Body; LB = Lower Body [id number] Consult note* Heladio Chun, PT - 07/31/2021 [...] you Patient Identified Goal(s): To return home RESIDENT CARE DIRECTOR Status: + drive, I 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 0 steps to bedroom/bathroom Assistance available: Spouse can assist PRN Equipment available: none OBJECTIVE: Appearance: Oxygen, IV, NAILHEAD OPERATOR, Drain and Reyes Behavior: Drowsy Oriented x 4 Follows multple step commands consistently and without cues Pain: Site/Location: abdomen; Pain Scale: 7/10 Pain Relief Interventions Implemented: Encouraged patient to use NAILHEAD OPERATOR Passive ROM: Not formally tested however [...] With Patients permission ordered no equipment via [facility] Order. If any questions contact [facility] DME Provider at [phone]. 6 Clicks Basic Mobility PT 07/31/2021 Difficulty [...] and agreement with the plan. Heladio Chun, MARTÍN NA = Not Assessed, I = Independent, IA = Modified Independent, Sup = Supervised, Set up = Physical Assistance for Set-up Only, Min = Minimal Assistance, Mod = Moderate Assistance, Max = Max assistance; Dep = Dependent; AROM = Active Range of Motion; PROM = Passive Range of Motion; MMT = Manual Muscle Test; LE = Lower Extremity [id number] Note* Care Plan Note - Dinorah Palencia [...] adult patient will be met Outcome: Progressing [id number] Nurse Surgical operation note* Irina Marie RN - 07/30/2021 7:58 PM EDT One 5fr stent placed in left hepatic duct, one 8 fr stent placed in accessory duct by Dr. Sarmiento intraoperatively. [id number] Nurse Note* Irina Marie RN - 07/30/2021 7:58 PM EDT One 5fr stent placed in left hepatic duct, one 8 fr stent placed in accessory duct by Dr. Sarmiento intraoperatively. documented in this [id number] Note* Brief Operative Note - Madeleine Hooks MD - 07/30/2021 2:08 PM EDT Brief Operative Note MAIN OR 07 Shahla Ruelas 41 year old female Surgical Contact Serial Number: [id number] Preoperative Diagnosis: Cyst of gallbladder [K82.8] Liver [...] Mercedes Soliman; Anya Fletcher; Juan Jon RN [employer] Repairer Nurse: Vitaly Reyes, VITA; Kraig Espinal; Rosa Seo, VITA; Yumiko Haji, VITA; Irina Marie, VITA; Juany Higginbotham, director of mediaPipefitter: Madeleine Hooks MD Anesthesia: General Anesthesiologist: Neil Rodriguez MD; Uriel Hathaway DO CAA: Jetbrian Rina GAS MAIN FITTER HELPER: Adrian Bermudez APRN-GAS MAIN FITTER HELPER; Jewel Vogel APRN-GAS MAIN FITTER HELPER; Mariel Ireland APRN-GAS MAIN FITTER HELPER Chief Cruiser: Al Mascorro MD; Jean Ojeda MD Specimen(s): ID Type Source Tests Collected by Time Destination 1 : Falciform Tissue Liver SPECIMEN FOR SURGICAL PATH Roxanna Sarmiento MD 07/30/2021 1554 2 : biliary cystadenoma Tissue Liver SPECIMEN FOR SURGICAL PATH Roxanna Sarmiento MD 07/30/2021 1719 3 : right hepatic duct polyp Tissue Liver SPECIMEN FOR SURGICAL PATH Roxanna Sarmiento MD 07/30/2021 1813 A : liver cyst fluid Fluid Fluid, Cyst (Cytology) ANAEROBIC CULTURE, MISC, AFB CULTURE/SMEAR, CYTOLOGY FLUID Roxanna Sarmiento MD 07/30/2021 1619 Estimated Blood Loss: [...] by Madeleine Hooks MD 07/30/2021 11:09 PM [id number] Note* OP Note - Diamond Larson MD [...] biliary cystadenoma Surgeon: Diamond Larson MD Co-Surgeon: Roxanna Sarmiento MD Field Collector: Madeleine Hooks MD (general surgery resident) Anesthesiologist: Uriel Hathaway, DO Anesthesia: general endotracheal Specimen: 1. Falciform [...] portion of the procedure. Diamond Larson MD [employer] Work Phone: 1(869) 614-726605-27-2022 History and physical note* Madeleine Hooks MD [...] possible Madeleine Hooks MD 07/30/2021 11:08 AM [facility] [id number] History and physical note* Madeleine Hooks MD [...] MD 07/30/2021 11:08 AM documented in this [id number] Note* Anesthesia Attestation - Uriel Hathaway DO - 07/30/2021 11:01 AM EDT Anesthesia Attestation ATTESTATION OF INFORMED CONSENT FOR ANESTHESIA Anesthesia options were discussed with the patient and/or legal packaging sales representative. The risks, benefits and alternatives were reviewed. Questions regarding anesthesia were answered. Patient and/or legal packaging sales representative knows such anesthetics and procedures may be performed by Resident physicians, Certified Anesthesiologist Assistants, or Certified Nurse Anesthetists under the supervision of a physician. The patient /or the patient s legal representativeagree with the plan for anesthesia. [facility] Work Phone: 1(835) 354-637805-27-2022 Note* Blood Attestation - Uriel Hathaway DO - 07/30/2021 11:01 AM EDT Blood Attestation ATTESTATION OF INFORMED CONSENT FOR BLOOD The transfusion of blood and/or blood components were discussed with the patient and/or legal packaging sales representative. The risks, benefits and alternatives were reviewed. Questions regarding blood transfusions were answered. The patient /or the patient s legal packaging sales representative agree with the plan for transfusion of blood and/or blood components. [id number] Miscellaneous Notes* OP Note - Roxanna Sarmiento MD - 07/30/2021 8:03 AM EDT Name: SHAHLA RUELAS MR#: [id number] [facility]#: [id number] Date of Procedure: 07/30/2021 ATTENDING SURGEON: Roxanna Sarmiento MD FIRST SURGEON: Madeleine Hooks MD [...] 6. Direct Biliary endoscopy with choledochoscope (CPT 27389). 7. Resection of hepatic duct polyp 8. Intraoperative cholangiogram. 9. Yovani-en-Y hepaticojejunostomy x2. 10. Vascularized omental pledget to anastomosis. 11. Intraoperative ultrasound of the liver and hepatic vessels (CPT: 62107) ANESTHESIA: General with endotracheal anesthesia. OPERATIVE INDICATIONS: [...] transected. A jejunojejunostomy was performed in a tgfy-qj-edde fashion with 3-0 Vicryl and 2-0 Ethibond [...] 3-0 PDS suture. Next, over both a 5-Uzbek pediatric feeding tube for the smaller hepatic duct and an 8-Uzbek pediatric feeding tube for the larger one, [...] is cleaned and dried. Prior to closure,a 19-Uzbek round José drain was placed posterior to [...] Dict: 07/31/2021 22:40:26 TRANS: 08/01/2021 00:30:11 JOB: [id number] [employer]#: [id number] documented in this [id number] Note* OP Note - Roxanna Sarmiento MD - 07/30/2021 8:03 AM EDT Name: SHAHLA RUELAS MR#: [id number] [facility]#: [id number] Date of Procedure: 07/30/2021 ATTENDING SURGEON: Roxanna Sarmiento MD FIRST SURGEON: Madeleine Hooks MD [...] 6. Direct Biliary endoscopy with choledochoscope (CPT 79580). 7. Resection of hepatic duct polyp 8. Intraoperative cholangiogram. 9. Yovani-en-Y hepaticojejunostomy x2. 10. Vascularized omental pledget to anastomosis. 11. Intraoperative ultrasound of the liver and hepatic vessels (CPT: 06595) ANESTHESIA: General with endotracheal anesthesia. OPERATIVE INDICATIONS: [...] transected. A jejunojejunostomy was performed in a dhkv-ly-xqqe fashion with 3-0 Vicryl and 2-0 Ethibond [...] 3-0 PDS suture. Next, over both a 5-Uzbek pediatric feeding tube for the smaller hepatic duct and an 8-Uzbek pediatric feeding tube for the larger one, [...] is cleaned and dried. Prior to closure,a 19-Uzbek round José drain was placed posterior to [...] Dict: 07/31/2021 22:40:26 TRANS: 08/01/2021 00:30:11 JOB: [id number] [employer]ictJob#: [id number] [facility] Work Phone: 1(431) 144-934005-13-2022 Miscellaneous Notes* Telephone Encounter - Trista Estrella RN - 07/16/2021 2:28 PM EDT Spoke with patient and advised that she start Ferrous Sulfate 325 mg every other day after surgery and follow up with pcp. Advised patient to call [facility] if unable to tolerate oral iron. Patient verbalized understanding. * Telephone Encounter - Leandra Snyder RPh - 07/16/2021 2:11 PM EDT [facility] Staff, Please contact patient re the following issue. We received a referral for anemia management from [facility] (patient to have surgery [...] hepatectomy partiel lobectomy 07/30 documented in this [id number] Instructions* Patient Instructions* Marcella Luevano APRN-CNP - [...] for pain. Please hold all Vitamin E, Jefferson 3, fish oil and herbal supplements for 1 week prior to surgery documented in this [id number] Miscellaneous Notes* PSE Appt H&P - Bee Wilde - 07/15/2021 12:58 PM EDT Patient was identified by name and date of . Bee Wilde Bill of rights provided to patient * PSE Appt H&P - Marcella Luevano APRN-CNP - 07/14/2021 2:18 PM EDT Images from the original note were not included. Presurgical Evaluation Shahla Hopson Jessenia, [id number] 41 year old Female 07/15/2021 Height: 5' [...] Row Name Office Visit from 07/15/2021 in [facility] Pre-Surgical Evaluation History of sleep [...] old female who presented from OSH [place] with chief complaint of RUQ pain and nausea and some vomiting. RUQ US at OSH demonstrated complex cyst in GB fossa. CTA showed increased size of lesion since 2014. Started on ertapenem and ceftriaxone in setting of elevated WBC and allergies to cipro, PCNs, flagyl. Transferred [facility] for GI consult and possible [...] MCGRATH 7:58 AM 07/16/2021 documented in this [id number] Miscellaneous Notes* OP Note - Leobardo Barry MD - 06/16/2021 10:26 AM EDT Images from the original note were not included. ENDO 05 Shahla Mark Anthony Jessenia 41 year old female Surgical Contact Serial Number: [id number] Shahla Ruelas [id number] 06/16/2021 GAS CUTTER: Leobardo Barry MD ATTENDING:Leobardo Barry MD Procedure(s): [...] withdrawn from the patient. Bile duct obstruction [557220] 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 [8175498] PHANI PATH SPECIMEN SENT: yes SPECIMEN: Bile [...] were discussed with the patient and/or legal packaging sales representative. The risks, benefits and alternatives were reviewed. Questions regarding blood transfusions were answered. The patient /or the patient s legal packaging sales representative agree with the plan for transfusion of blood and/or blood components. * Anesthesia Attestation - Tamara Venegas MD - 06/16/2021 10:18 AM EDT Anesthesia Attestation ATTESTATION OF INFORMED CONSENT FOR ANESTHESIA Anesthesia options were discussed with the patient and/or legal packaging sales representative. The risks, benefits and alternatives were reviewed. Questions regarding anesthesia were answered. Patient and/or legal packaging sales representative knows such anesthetics and procedures may be performed by Resident physicians, Certified Anesthesiologist Assistants, or Certified Nurse Anesthetists under the supervision of a physician. The patient /or the patient s legal representativeagree with the plan for anesthesia. documented in this [id number] Miscellaneous Notes* PSE Call H&P - eLigh Ann Candelaria APRN-VACATION PLANNER - 06/10/2021 12:14 PM EDT Images from the original note were not included. Telephone History Shahla Rueals, [id number] 06/11/2021 41 year old DOS- CBC Date [...] STOP-BANG Row Name Telephone from 06/11/2021 in [facility] Pre Surgical Evaluation History of sleep apnea? [...] old female who presented from [place]SH [place] with chief complaint of RUQ pain and nausea and some vomiting. RUQ US at OSH demonstrated complex cyst in GB fossa. CTA showed increased size of lesion since 2014. Started on ertapenem and ceftriaxone in setting of elevated WBC and allergies to cipro, PCNs, flagyl. Transferred to [facility] for GI consult and possible [...] for pain Please hold all Vitamin E, Jefferson 3, fish oil and herbal supplements for [...] Telephone History: 20 minutes documented in this [id number] Evaluation note* Encounter Date Diagnosis Assessment Notes Treatment Notes Treatment Clinical Notes Jun, Right calf pain (ICD-10 - M79.66 1) My suspicion for DVT is low based on exam findings, but her unknown intra abdominal pathology and recent hospital stay do make it a possibility, so I will send her for US. She will seek immediate medical attention for any CP, dyspnea, or worsening symptoms in the lower extremity. [employer] Other Discharge summary Author Geo Loomis [facility] May 15, 2022 12:12pmNote Date/TimeMarch 2022 12:10pm[address] [address] Discharge Summary Signed Patient: Shahla Ruelas MR#: [id number] : 1980 Acct:[id number] Age/Sex: 42 / F Adm Date: 3 Loc: Room: [address] [place] [address]: Geo Loomis MD Copies to: MD Tamara Harper, DO~ Providers Date of Discharge: 05/15/22 Discharging [...] things have been worsening over the past coupledays.? She stated that she cannot identify any [...] effects. She did complain of some anxiety duringhospitalization and did use Zyprexa which she felt was beneficial. During hospitalization she socialized with peers. She attended groups and learn coping skills. She did not exhibit any behavior bel rning for suicidality. She did not have any conflict with peers or staff. As her symptoms improved she became brighter and affect was more full. She did not report any further suicidality. She was comfortable discharge plan home and following up with outpatient services. We discussed about engagingin some groups on the outpatient basis as [...] No Activity Restrictions Instructions: Depression, Adult (DC), [facility] DC Instructions Prescriptions: New cholecalciferol [...] capsules by mouth once daily Follow Up: [facility] Hotline [Outside] [facility] [Outside] - 05/16/22 11:00 am ([facility] on Monday, May 16, 2022 at 11:00am. This is a phone call appointment with a Heel Emery Buffer, at this time further appointments will be made. Please have your phone available around this time.) Tamara Calero, [Primary Care Provider] - (Please call for any medical needs) Documented By: Geo Loomis MD 05/15/22 1208 Signed By: <Electronically signed by Geo Loomis MD> 05/15/22 1212 [facility] Work Phone: Evaluation note* Diagnosis Bile [...] liver [facility] Other evaluation note* Diagnosis Liver cyst- Primary Other specified disorders of liver [facility]* Diagnosis NO SHOW- Primary [facility]* Diagnosis Onset Date Resolution Status Major depression acuteSuicidal ideationacute [facility] Work Phone: Evaluation note* Diagnosis Onset Date Resolution Status Major depression acuteMDD (major depressive disorder), recurrent episodeacuteSuicidal ideation acute [facility] Work Phone: Evaluation note* Diagnosis Onset Date Resolution Status Major depression acuteMDD (major depressive disorder), recurrent episodeacuteSuicidal ideation acuteSuicidal ideationacute [facility] Work Phone: evaluation note* Diagnosis Onset Date Resolution Status Depression with anxiety acuteEssential hypertensionacuteGERD without esophagitisacuteNicotine dependence, cigarettes, with other nicotine-induced disordersacuteConstipation noneactive [facility] Work Phone: evaluation noteNo assessment information available [facility] Work Phone: evaluation note* Diagnosis Onset Date Resolution Status Asthma exacerbation resolved [facility] Work Phone: evaluation note* Diagnosis Onset Date Resolution Status Asthma exacerbation resolvedAcute bronchitis with asthma with acute exacerbationnoneactive [facility] Work Phone: evaluation note* Diagnosis Onset Date Resolution Status Asthma exacerbation resolvedAcute bronchitis with asthma with acute exacerbationnoneactiveSecond degree chemical burn to female genitaliaacuteMajor depressionacuteSuicidal ideationacute [facility] Work Phone: evaluation note* Diagnosis Severe claudication ([facility])- Primary Cigarette smoker motivated to quit Cigarette smoker motivated to quit- Primary Claudication ([facility]) Unspecified peripheral vascular disease Cigarette smoker motivated to quit- Primary Severe claudication ([facility]-HCC) Blue toe syndrome of left lower extremity ([facility]) documented in [facility] encounter [facility] [...] peripheral vascular disease [facility] Narrative - Reported* Type Description Date Medical History Anxiety and Depression Medical HistoryHTNMedical HistoryAsthmaMedical HistoryIBSMedical HistoryInner ear with dizzinessMedical Historybilateral carpal tunnelMedical HistoryHheel spurMedical HistoryRight carpal tunnel syndromeMedical HistoryRight carpal tunnel syndromeMedical HistoryCarpal tunnel syndrome, leftSurgical History edpzdysgdhb6116Kzgysrne Historywisdom teeth siafqyz2476Khtuhuab Historybilateral carpal tunnel kemaiqg7672Xnwfvivv Historyc-sectionSurgical Historycardiac haanbcjwkgdozey8105Qbzxktwgmzusoxk History1 [employer] Other History general Narrative - Reported* Type Description Date Medical History Anxiety and Depression Medical HistoryHTNMedical HistoryAsthmaMedical HistoryIBSMedical HistoryInner ear with dizzinessMedical Historybilateral carpal tunnelMedical HistoryHheel spurMedical HistoryRight carpal tunnel syndromeMedical HistoryRight carpal tunnel syndromeMedical HistoryCarpal tunnel syndrome, leftSurgical History techighyrue8662Ybxonzih Historywisdom teeth htlelmr6826Gdzjeatr Historybilateral carpal tunnel mqodlcu7315Xvlkszjb Historyc-sectionSurgical Historycardiac mrridiftxdfzhka8120Dywkmzod Historygall stones removal from bile duct04/2021 Surgical Historyabdominal surgery with cyst removal07/30/2021Hospitalization History1 [employer] Other [facility] general Narrative - Reported* Type Description Date Medical History Major Depressive Disorder/Anxiet y Medical HistoryHTNMedical HistoryAsthmaMedical HistoryIBSMedical HistoryInner ear with dizzinessMedical Historybilateral carpal tunnelMedical HistoryHheel spurMedical HistoryRight carpal tunnel syndromeMedical HistoryRight carpal tunnel syndromeMedical HistoryCarpal tunnel syndrome, leftSurgical History imvaaidgtnx0026Qrpbstfg Historywisdom teeth vqtoajb7480Bgoijlgc Historybilateral carpal tunnel uhmkoto1147Kcimzagd Historyc-sectionSurgical Historycardiac pxgtoeabftlbfdb9796Hmgwgrcx Historygall stones removal from bile duct04/2021 Surgical Historyabdominal surgery with cyst removal07/30/2021Hospitalization History1 child birthHospitalization Lwdkjzz9L- Major Depressive Disorder05/2022 [employer] Other History general Narrative - Reported* Type Description Date Medical History Major Depressive Disorder/Anxiet y Medical HistoryHTNMedical HistoryAsthmaMedical HistoryIBSMedical HistoryInner ear with dizzinessMedical Historybilateral carpal tunnelMedical HistoryHheel spurMedical HistoryRight carpal tunnel syndromeMedical HistoryRight carpal tunnel syndromeMedical HistoryCarpal tunnel syndrome, leftSurgical History rwxzomguczo0477Omblaycg Historywisdom teeth qdbmahv7567Atfitbsj Historybilateral carpal tunnel lakyxzo2572Twbokzoj Historyc-sectionSurgical Historycardiac auhwxfhervlpery2614Xwwdmmkz Historygall stones removal from bile duct04/2021 Surgical Historyabdominal surgery with cyst removal07/30/2021urgical History Tubal ligation [facility]07/2022Hospitalization History1 child Hospitalization Zxlbthg7S- Major Depressive Disorder05/2022 [employer] Other Hisaqut general Narrative - Reported* Type Description Date Medical History Major Depressive Disorder/Anxiet y Medical HistoryHTNMedical HistoryAsthmaMedical HistoryIBSMedical History bilateral carpal tunnelMedical HistoryHheel spurMedical HistoryRight carpal tunnel syndromeMedical HistoryCarpal tunnel syndrome, leftSurgical History fhmmdinfoak9659Mlcnfzug Historywisdom teeth ijvobyg8814Guwupnse Historybilateral carpal tunnel fwwfwju8243Mpktirgz Historyc-sectionSurgical Historycardiac anzovoxkhugaqfb6369Hswtzgzu Historygall stones removal from bile duct04/2021 Surgical Historyabdominal surgery with cyst removal07/30/2021urgical History Tubal ligation [facility]07/2022Hospitalization History1 child Hospitalization Nlplcvx4X- Major Depressive Disorder05/2022 [employer] Other Hospital Discharge instructions* Instructions* Stephanie Johnston [...] or concerns call the nurse line at [phone]. Please leave a message and anurse will return your call within 48-72 hours. For urgent problems or concerns, call the [facility] Endoscopy unit at , Monday through Monday [...] Barry Physicians Name Patient/Caregiver documented [facility] Dis[facility] instructions Additional Instructions Regular Diet No Activity Rest[facility]ions[facility] Work Phone: Instructions* Attachments The following attachments cannot be sent through Care Everywhere. * How to Perform Breast Self-Examination (Sierra Leone[place]) documented in this encounterVan Wert County HospitalInstructionsNot on file documented in this encounterVan Wert County HospitalInstructionsNot on file documented in this encounterVan Wert County HospitalReason for referral (narrative)No reason for referral information availableMer[facility] Work Phone: Refgjv for visit Narrative* Auth/CertSpecialty Diagnoses / ProceduresReferred By ContactReferred To ContactGastroenterology Diagnoses Cyst of gallbladder [K82.8] Procedures ENDOSCOPIC RETROGRADE CHOLANGIOPANCREATOGRAPHY; DX, W/WO SPECIMEN COLLECTION, BRUSH/WASH (SEP PROC) ERCP, GENERAL ANESTHESIA Leobardo Barry MD [address] [place] [address] [place] [address] [facility] [address] [place] [phone] Phone: [phone] Referral IDStatusAbdielStbloomfield hills DateExpiration DateVisits RequestedVisits [id number] [facility] for visit Narrative* Auth/CertSpecialtyDiagnoses / Procedures Referred By ContactReferred To ContactGeneral Surgery Diagnoses Cyst of gallbladder Liver cyst Cyst of gallbladder [K82.8] Liver cyst [K76.89] Procedures HEPATECTOMY, RESECTION, LIVER; PARTIAL LOBECTOMY UNLISTED PROCEDURE, LAPAROSCOPY, BILIARY TRACT HEPATECTOMY, PARTIAL, LOBECTOMY LAPAROSCOPY, DIAGNOSTIC EXPLORATION, COMMON BILE DUCT Roxanna Sarmiento MD [address] [place], [place] [id number] [facility] [address] [place] [phone] Phone: [phone] Referral IDStatusAbdielYorkshire DateExpiration DateVisits RequestedVisits [id number] [facility] for visit NarrativeDiscuss Anxiety, weight gain , possible hormone imbalance follows with SamEnrico Other Summary Purpose Family History No Family History Records Found Relationship Condition Age at Onset Recorded Date/T jack Not Specified Hypertension Unknown daughterAsthmaUnknownNot SpecifiedMalignant neoplasmUnknownHistory of stroke Unknown Relationship Condition Age at Onset Recorded Date/T jack mother Hypertension Unknown daughterAsthmaUnknownmotherMalignant neoplasmUnknownHistory of strokeUnknown Advance Directives No Advanced Directives Records FoundLatest Code Status on File Code StatusDate ActivatedDate InactivatedCommentsFull Code07/31/2021 2:23 AM Documentation of decision process for this code status:Discussed with patient or surrogate. This is the code status chosen by the patient/surrogate.Full Code 04/22/2021 9:40 PM2 8:50 PMFull Code04/02/2021 10:43 PM2 6:00 PM Code StatusDate ActivatedDate InactivatedCommentsFull Code04/22/2021 9:40 PM 04/28/2021 8:50 PMCode StatusDate ActivatedDate InactivatedCommentsFull Code 04/22/2021 9:40 PM2 8:50 PMFull Code04/02/2021 10:43 PM2 6:00 PM Code StatusDate ActivatedDate InactivatedCommentsFull Code07/31/2021 2:23 AMFull Code04/22/2021 9:40 PM2 8:50 PMCode StatusDate ActivatedDate Inactivated CommentsFull Code07/31/2021 2:23 AM08/04/2021 3:11 PMCode StatusDate ActivatedDate InactivatedCommentsFull Code07/31/2021 2:23 AM08/04/2021 3:11 PMQuestionAnswer CommentsDocumentation of decision process for this code status:Discussed with patient or surrogate. This is the code status chosen by the patient/surrogate. Code StatusDate ActivatedDate InactivatedCommentsFull Code04/22/2021 9:40 PM 04/28/2021 8:50 PMQuestionAnswerCommentsDocumentation of decision process for this code status:Discussed with patient or surrogate. This is the code status chosen by the patient/surrogate.Full Code04/02/2021 10:43 PM2 6:00 PM QuestionAnswerCommentsDocumentation of decision process for this code status: Discussed with patient or surrogate. This is the code status chosen by the patient/surrogate. Advance Directive Response Recorded Date/ Time Advance Directives No November 10:17am Advance Directive Response Recorded Date/ Time Advance Directives No November 11:17am Date ActivatedDate InactivatedComments06/01/2020 7:50 AM06/01/2020 6:49 PMDate ActivatedDate InactivatedComments05/23/2019 7:06 PM05/23/2019 10:15 PMDate ActivatedDate InactivatedComments05/13/2019 6:25 AM05/15/2019 10:12 PMDate ActivatedDate InactivatedComments05/02/2019 10:27 PM2 10:38 AMDate ActivatedDate InactivatedComments06/01/2020 7:50 AM06/01/2020 6:49 PMDate ActivatedDate InactivatedComments05/23/2019 7:06 PM05/23/2019 10:15 PMDate ActivatedDate InactivatedComments05/13/2019 6:25 AM05/15/2019 10:12 PMDate ActivatedDate InactivatedComments05/02/2019 10:27 PM2 10:38 AMCode Status Date ActivatedDate InactivatedCommentsFull Code06/01/2020 7:50 AM06/01/2020 6:49 PMCode StatusDate ActivatedDate InactivatedCommentsFull Code05/23/2019 7:06 PM 05/23/2019 10:15 PMFull Code3 6:25 AM05/15/2019 10:12 PMFull Code05/02/2019 10:27 PM2 10:38 AMDate ActivatedDate InactivatedComments07/31/2021 2:23 AM08/04/2021 3:11 PMQuestionAnswerCommentsDocumentation of decision process for this code status:* Discussed with patient or surrogate. This is the code status chosen by the patient/surrogate. Date ActivatedDate InactivatedComments04/22/2021 9:40 PM2 8:50 PMQuestion AnswerCommentsDocumentation of decision process for this code status:* Discussed with patient or surrogate. This is the code status chosen by the patient/surrogate. Date ActivatedDate InactivatedComments04/02/2021 10:43 PM2 6:00 PMQuestion AnswerCommentsDocumentation of decision process for this code status:* Discussed with patient or surrogate. This is the code status chosen by the patient/surrogate. Reason for Referral SpecialtyDiagnoses / ProceduresReferred By ContactReferred To ContactCardiology Diagnoses Iron deficiency anemia, unspecified iron deficiency anemia type Marcella Luevano, DOWEL POINTER-VACATION PLANNER [address] [facility] [place] [address] [facility] [address] [place] [address] Referral IDStatusReasonStart DateExpiration DateVisits RequestedVisits [id number]/13/20225/ Scheduling Instructions No appointment is needed for this referral, if you have not heard from the Anemia Clinic within 2 business days, please call [phone] Comments Referred patient's anemia will be managed by either Pharmacists and/or Nurse Practitioners. If a pharmacist is managing, the referral serves to acknowledge your agreement to [facility]'s Consult Agreement where the pharmacist may [...] hepatectomy partiel lobectomy 07/30 For questions call [phone] (Anticoagulation/Medication Management Clinic) SpecialtyDiagnoses / ProceduresReferred By ContactReferred To Contact Diagnoses Postoperative pain Meenakshi Weeks PA-C [address] [place] [address] Referral IDStatusReasonYorkshire DateExpiration DateVisits RequestedVisits [id number] / ProceduresReferred By ContactReferred To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 information in this document.
--- OUTSIDE RECORDS SUMMARY | 2025-02-12 05:34 | XMS_ITS | Clinical Summary ---
Author Organization [facility] Address [address] [place] [address] Care Team Providers Care Pulp House Supervisor Name Role Phone Josette Mendoza CNP Primary Care Provider [phone] Allergies Active AllergyReactionsCriticalityNoted DateCommentsCiprofibrateSwellingHigh 10/12/20181218OqcymxcwpozwwSkkhmWscd37/29/2013 Facial edema - per pt MyzlbotctdqzyJeacsXmns13/09/2019 Flu like s/s Facial edema - per pt AbtcmzhpdpiFkkrtRjyu24/09/2019 Facial edema - per pt Medications MedicationSigDispense QuantityRefillsLast FilledStart DateEnd DateStatus aspirin 81 mg EC tablet 1 tablet Orally Once a day05/18/2023ctive atorvastatin (Lipitor) 40 mg tablet Take 40 mg by mouth in the morning.06/26/2023ctive cholecalciferol (Vitamin D-3) 50 MCG (1999) tablet Take by mouth in the morning.06/06/2023ctive clopidogrel (Plavix) 75 mg tablet Take 75 mg by mouth in the morning.05/18/2023ctive gabapentin (Neurontin) 600 mg tablet Take 600 mg by mouth in the morning, afternoon, and at bedtime.01/05/2023ctive OLANZapine (ZyPREXA) 5 mg tablet take 1 tablet by mouth three times a day if needed for LGJCVUHYL49/19/2024ctive olmesartan-hydrochlorothiazide (BENIcar HCT) 20-12.5 mg tablet Take 1 tablet by mouth if needed.04/24/2023ctive omeprazole (PriLOSEC) [address] capsule Take 40 mg by mouth in the morning and at bedtime.Active buPROPion XL (Wellbutrin XL) 300 mg 24 hr tablet Take 300 mg by mouth in the morning.Active LORazepam (Ativan) 1 mg tablet Take 1 tablet by mouth every 8 (eight) hours if needed for anxiety.02/21/2024 Active albuterol 90 mcg/actuation inhaler Inhale 2 puffs every 6 (six) hours if needed for wheezing.Active levomilnacipran (Fetzima) 20 mg extended release capsule Take 40 mg by mouth in the morning.Active hydrOXYzine pamoate (Vistaril) 25 mg capsule Take 25 mg by mouth.03/18/2024tive vilazodone (Viibryd) 10 mg tablet Take 10 mg by mouth with breakfast.03/18/2024tive vilazodone (Viibryd) 20 mg tablet Take 20 mg by mouth in the morning. with food05/28/2024tive metoprolol succinate XL (Toprol-XL) 50 mg 24 hr tablet Indications:PalpitationsTake 1 tablet (50 mg) by mouth once daily as directed. Do not crush or chew. 90 tablet /ctive ferrous sulfate 325 (65 Fe) MG tablet Take 325 mg by mouth with breakfast.4Active Active Problems ProblemNoted DateDiagnosed DateSVT (supraventricular tachycardia)08/06/2024 Pnyigxksquez00/22/2025NSTEMI (non-ST elevated myocardial infarction)05/24/2024 Assessment & Plan (05/24/2024 8:07 AM EDT): -Patient is currently chest pain-free -Commence patient on IV heparinization -Aspirin -Obtain lipid panel -Consult cardiology -Has supplemental oxygen and nitrates ready to use if patient has chest discomfort. IAM (acute kidney injury)05/24/2024 Assessment & Plan (05/24/2024 8:07 AM EDT): -Gentle hydration with normal saline at rate of 50 mL/h -Avoid nephrotoxic agents -Care must be taken to preserve renal function before, during and after catheterization -Need to consult with nephrology. Positive test05/24/2024 Assessment & Plan (05/24/2024 8:07 AM EDT): -Patient has positive test however she states that she is not -Patient states that she has tubal ligation -Repeat quantitative beta-hCG DVT prophylaxis using VTE protocols per [facility] GI protection Protonix Monitor labs and correct any abnormalities especially monitor renal function Try to avoid nephrotoxic agents Consult include cardiology and nephrology I discussed the plan of care with the patient and she is in agreement with the plan of care. Biliary nmmvqit49ommon bile duct stone Cystadenoma of liverOn total parenteral nutrition (TPN) ight upper quadrant abdominal pain Abnormal CT scanlue toe syndrome of left lower extremity laudicationHx of abnormal cervical Pap smear Overview (06/28/2023): ASCUS / + other high risk hpv 10/23/2018 Irritable bowel syndrome with both constipation and zuvvyekj69 Liver cysterihepatic fluid rzhpimexno89 Acute pancreatitis after endoscopic retrograde cholangiopancreatography (ERCP) History of biliary stent qcnigfaqf24 Gastroesophageal reflux disease without eivppgoirtw63 Assessment & Plan (05/24/2024 8:07 AM EDT): -Pantoprazole orally Nausea & onglxcwg67Obesity Assessment & Plan (05/24/2024 8:07 AM EDT): -Weight loss by virtue of diet and exercise Biliary boppyjnikr42 Assessment & Plan (05/24/2024 8:27 AM EDT): -Note that patient had abdominal pain after eating a compelled meal and Evan. -Must consider biliary dyskinesia and also acute pancreatitis being that patient has had acute pancreatitis in the past. Abnormal stress test Overview (06/28/2023): Added automatically from request for surgery [id number] Assessment & Plan (05/24/2024 8:07 AM EDT): -Proceed to catheterization however care must be taken because of patient's renal function. -May need to consult with nephrology Abnormal EKG0nxiety Overview (06/28/2023): Stopped ativan Psychiatrist started her on trazadone . Helping Cigarette smoker motivated to quit Overview (06/28/2023): quit History of xfcwaynipz22Hypertension Overview (06/28/2023): MFM consult Growth Q 4 weeks Twice weekly NST and weekly JOSE MANUEL start at 32 weeks switch coreg to labetalol 200mg BID per consult Dr. Boo Assessment & Plan (05/24/2024 8:07 AM EDT): -Patient's blood pressure is completely controlled this morning it was 100/65 -Will hold all antihypertensive medications for the moment Mild intermittent asthma without lsilypefqwza72 Family History Medical HistoryRelationNameCommentsCancerMotherHypertensionMotherStrokeMother RelationNameStatusCommentsBrotherAliveFatherAliveMotherDeceasedSisterAlive Social History Tobacco UseTypesPacks/DayYears UsedDateSmoking Tobacco: Every DayCigarettes Smokeless Tobacco: Never Tobacco Cessation:Ready to Q uit: Not Asked; Counseling Given: Not Answered Alcohol UseStandard Drinks/WeekCommentsNot Currently0 (1 standard drink = 0.6 oz pure alcohol)formerC UtilitiesAnswerDate RecordedIn the past 12 months has the [employer], [employer], oil, or water [employer] threatened to shut off services in your home?No05/24/2024Humiliation, Afraid, Rape, and Kick questionnaireAnswerDate RecordedWithin the last year, have you been afraid of your partner or ex-partner?05/24/2024Emotionally AbusedNot on file05/24/2024Physically Abused Not on file05/24/2024Sexually AbusedNot on file05/24/2024Overall Financial Resource Strain (CARDIA)AnswerDate RecordedHow hard is it for you to pay for the very basics like food, housing, medical care, and heating?Not hard at all 05/24/2024UT Safety & EnvironmentAnswerDate RecordedFear of Current or Ex-PartnerNot on file06/28/2023Emotionally AbusedNot on file06/28/2023hysically AbusedNot on file06/28/2023Sexually AbusedNot on file06/28/2023hysically or Sexually AbusedNot on file06/28/2023TransportationAnswerDate RecordedIn the past 12 months, has lack of transportation kept you from medical appointments or from getting medications?No05/24/2024Lack of Transportation (Non-Medical)Not on file 05/24/2024Housing Stability Vital SignAnswerDate RecordedIn the last 12 months, was there a time when you were not able to pay the mortgage or rent on time?No 05/24/2024Number of Times Moved in the Last YearNot on file05/24/2024t any time in the past 12 months, were you homeless or living in a custodial (including now)? No05/24/2024Hunger Vital SignAnswerDate RecordedWithin the past 12 months, you worried that your food would run out before you got the money to buymore.Never true05/24/2024Ran Out of Food in the Last YearNot on file05/24/2024 CommentsUnknownSex and Gender InformationValueDate RecordedSex Assigned at Not on fileLegal ZxzIpyycd61/29/2022 9:56 PM EDTGender IdentityNot on fileSexual OrientationNot on file Last Filed Vital Signs Vital SignReadingTime TakenCommentsBlood Pdqhyinb468/7006 8:54 AM EDT Hjeia487508/06/2024 8:54 AM XQKYwgosqcspgq30.4 ??C (97.5 ??F)05/25/2024 8:07 AM EDTRespiratory Qzkx870605/25/2024 8:07 AM EDTOxygen Drwphfsldn19%08/06/2024 8:54 AM EDTInhaled Oxygen Concentration--Ehazod500 kg (240 lb)08/06/2024 8:54 AM EDT Pkbbon287.6 cm (5' 6 )08/06/2024 8:54 AM EDTBody Mass Index38.7408/06/2024 8:54 AM EDT Plan of Treatment Health MaintenanceDue DateLast DoneCommentsCT Hinbhlwjwcpz1978Colonoscopy 1978Colorectal Cancer Spxuqvknt1978FIT-DNA1978FIT1978 FOBT1978 1146Kwzjjfvwzrasm1978Depression Vuhdappxv00/25/1990Hepatitis B Vaccines (1 of 3 - 19+ 3-dose series)1997Pneumococcal Vaccine: Pediatrics (0 to 5 Years) and At-Risk Patients (6 to 64 Years) (1 of 2 - PCV)1997Pap Smear1999Cervical Cancer Uuntgtwvm51/25/2008HPV/Ywmdch8001/29/2008Mammogram 504/3COVID-19 Vaccine (1 - 2024- season)2024Influenza Vaccine (#1)5103/31/2018Zoster Vaccines (1 of 2)8Adult Tetanus HIB VaccinesAged OutNo longer eligible based on patient's age to complete this topicHPV VaccinesAged OutNo longer eligible based on patient's age to complete this topicIPV VaccinesAged OutNo longer eligible based on patient's age to complete this topicMeningococcal B VaccineAged OutNo longer eligible based on patient's age to complete this topicMeningococcal VaccineAged OutNo longer eligible based on patient's age to complete this topicRotavirus VaccinesAged OutNo longer eligible based on patient's age to complete this topic Insurance * Guarantor: Laura Arias AAccount TypeRelation to PatientDate of BirthPhone Billing AddressPersonal/WiwdwvYxkf1980 [address] [place] [address] Advance Directives * Full Code (Latest Code Status on File) Date ActivatedDate InactivatedComments05/24/2024 7:50 AM05/25/2024 2:20 PM Care Teams Team MemberRelationshipSpecialtyStart DateEnd Date Josette Mendoza CNP [facility] [facility], [place] [address] PCP - GeneralFamily Medicine06/28/23
--- OUTSIDE RECORDS SUMMARY | 2025-02-12 05:34 | XMS_ITS | Patient Health Record ---
Author Organization [facility] in [place] Address [address] [place] [address] Care Team Providers Care Creel Hand Name Role Phone JOSETTE MANDEL CNP Primary Care Provider Noble Mendez Unavailable [phone] Josette Mandel Unavailable [phone] Allergies Allergen (clinical drug ingredient) Drug/Non Drug Allergy documented on EMR Reaction Allergy Type Onset Date Status Substance with penicillin st ructure and antibacterial mechanism of action (substance) Penicillins (uncoded) swelling Allergy ActiveCipro TABSswellingDrug AllergyActivemetronidazoleFlagylswellingDrug AllergyActive Results Component Value Reference Range Notes SARS-CoV-2 Ag* Reviewed date:05/22/2024 05:37:03 PM Interpretation: Performing Lab: Notes/Report: [facility] , SARS-CoV-2 Ag NEGATIVE NEGATIVE This test [...] Performing Lab: see note ML - [facility] LBTroponin I High Sensitivity Reviewed date:05/22/2024 05:37:03 PM Interpretation: Performing Lab: Notes/Report: [facility] ,Troponin I High Yopllgjgwcr582.54.0-51.3 pg/mL RESULTS CALLED TO JOHANA DANIELSON RN @BY Fabiola Whiting at 0624 CUT-OFF POINTS HAVE BEEN ESTABLISHED BASED ON THE FOURTH UNIVERSAL DEFINITION OF MYOCARDIAL INFARCTION. THE UPPER REFERENCE LIMIT (URL) OF TROPONIN, DEFINED THE 99TH PERCENTILE OF cTnI DISTRIBUTION IN A REFERENCE POPULATION, HAS BEEN CONFIRMED THE DECISION THRESHOLD FOR [place] DIAGNOSIS. 99TH PERCENTILE = 51.4 PG/ML NOTE: HIGH-SENSITIVITY TROPONIN ASSAY IS NOT INTENDED TO BE USED IN ISOLATION BUT SHOULD BE INTERPRETED IN CONJUNCTION WITH OTHER DIAGNOSTIC AND CLINICAL INFORMATION. Performing Lab:see noteML - [facility] LBPROF 14(COMP METB) Reviewed date:05/22/2024 05:37:03 PM Interpretation: Performing Lab: Notes/Report: [facility] ,Hxkxgk946749-016 mmol/LPotassium3.53.5-5.1 mmol/HGsmhpesx23053-483 mmol/LCarbon Nkvnnec43.121.0-32.0 mmol/LAnion Gap14.8Sxappil3904-499 mg/dLBlood Urea Nitrogen 33.07.0-18.0 mg/dLCreatinine1.890.55-1.02 mg/dLEstimated GFR ( Fmwnrzs70 >=60 mL/min/1.73m 2Estimated GFR (Non- Ame29>=60 mL/min/1.73m 2BUN Creatinine Ratio17.7Atjbubq2.68.5-10.1 mg/dLBilirubin Total0.60.2-1.0 mg/dL Aspartate Amino Gxvzndclxpe6655-35 U/LAlanine Ardqwzyltbibxvmc1108-84 U/L Alkaline Idzvbvcvplq3291-031 U/LTotal Protein5.76.4-8.2 g/dLAlbumin Level2.83.4- 5.0 g/dLGlobulin2.9Albumin Globulin Ratio1.0Performing Lab:see noteML - [facility] LBMAGNESIUM Reviewed date:05/22/2024 05:37:03 PM Interpretation: Performing Lab: Notes/Report: [facility] ,Magnesium1.51.8-2.4 mg/dLPerforming Lab:see noteML - [facility] LB INFLUENZA A AND B AG Reviewed date:05/22/2024 05:37:03 PM Interpretation: Performing Lab: Notes/Report: [facility] ,Influenza Virus A AntigenNegative Negative for Flu A protein antigen. Infection due to Flu A cannot be ruled out. Flu A antigen in the sample may be below the detection limit of the test. Influenza Virus B AntigenNegative Negative for Flu B protein antigen. Infection due to Flu B cannot be ruled out. Flu B antigen in the sample may be below the detection limit of the test. Performing Lab:see noteML - [facility] LBCBC AUTO DIFF Reviewed date:05/22/2024 05:37:03 PM Interpretation: Performing Lab: Notes/Report: [facility] ,White Blood Count6.74.0-11.0 10 3/uLRed Blood Count3.624.20-5.40 10 6/uL Qmjflynvjo11.512.0-16.0 g/rXMmpnoyoalw04.936.0-48.0 %Mean Corpuscular Lhyesk71.1 81.0-99.0 fLMean Corpuscular Crlwgoaxhe39.026.7-34.0 pgMean Corpuscular HGB Conc 32.929.9-35.2 g/dLRed Cell Distribution Width14.411.0-15.0 %Platelet Nyhoo015 150-450 10 3/uLMean Platelet Kjudjh75.49.5-13.5 fLNeutrophils Percent Auto74.2 43.0-75.0 %Lymphocytes Percent Auto14.420.5-60.0 %Monocytes Percent Auto9.41.7- 12.0 %Eosinophils Percent Auto1.30.9-7.0 %Basophils Percent Auto0.40.2-2.0 % Immature Granulocytes Pct Auto0.30.0-0.5 %Neutrophils Absolute Auto5.01.4-6.5 10 3/uLLymphocytes Absolute Auto1.01.2-3.8 10 3/uLMonocytes Absolute Auto0.60.3-0.8 10 3/uLEosinophils Absolute Auto0.10.0-0.7 10 3/uLBasophils Absolute Auto0.00.0- 0.1 10 3/uLImmature Granulocytes Abs Auto0.020.00-0.03 10 3/uLPerforming Lab:see noteML - [facility] LBBNP Reviewed date:05/22/2024 05:37:03 PM Interpretation: Performing Lab: Notes/Report: [facility] ,NT Pro B Type Natriuretic Pept71.0<=450.0 pg/mLPerforming Lab:see noteML - [facility] LBTroponin I High Sensitivity Reviewed date:05/22/2024 05:37:03 PM Interpretation: Performing Lab: Notes/Report: PER DR MENDEZ [facility] ,Troponin I High Mkapkjwpsjl888.24.0-51.3 pg/mL RESULTS CALLED TO JODIE WEST RN @BY Fabiola Whiting at 2222 CUT-OFF POINTS HAVE BEEN ESTABLISHED BASED ON THE FOURTH UNIVERSAL DEFINITION OF MYOCARDIAL INFARCTION. THE UPPER REFERENCE LIMIT (URL) OF TROPONIN, DEFINED THE 99TH PERCENTILE OF cTnI DISTRIBUTION IN A REFERENCE POPULATION, HAS BEEN CONFIRMED THE DECISION THRESHOLD FOR [place] DIAGNOSIS. 99TH PERCENTILE = 51.4 PG/ML NOTE: HIGH-SENSITIVITY TROPONIN ASSAY IS NOT INTENDED TO BE USED IN ISOLATION BUT SHOULD BE INTERPRETED IN CONJUNCTION WITH OTHER DIAGNOSTIC AND CLINICAL INFORMATION. Performing Lab:see noteML - [facility] LBTroponin I High Sensitivity Reviewed date:05/22/2024 12:03:14 PM Interpretation: Performing Lab: Notes/Report: [facility] ,Troponin I High Xmzjnyqcipw234.44.0-51.3 pg/mL RESULTS CALLED TO JODIE WEST RN @BY Fabiola Whiting at 1927 CUT-OFF POINTS HAVE BEEN ESTABLISHED BASED ON THE FOURTH UNIVERSAL DEFINITION OF MYOCARDIAL INFARCTION. THE UPPER REFERENCE LIMIT (URL) OF TROPONIN, DEFINED THE 99TH PERCENTILE OF cTnI DISTRIBUTION IN A REFERENCE POPULATION, HAS BEEN CONFIRMED THE DECISION THRESHOLD FOR [place] DIAGNOSIS. 99TH PERCENTILE = 51.4 PG/ML NOTE: HIGH-SENSITIVITY TROPONIN ASSAY IS NOT INTENDED TO BE USED IN ISOLATION BUT SHOULD BE INTERPRETED IN CONJUNCTION WITH OTHER DIAGNOSTIC AND CLINICAL INFORMATION. Performing Lab:see noteML - [facility] LBTroponin I High Sensitivity Reviewed date:05/21/2024 03:54:22 PM Interpretation: Performing Lab: Notes/Report: [facility] ,Troponin I High Umhoqtdprzt621.14.0-51.3 pg/mL RESULTS CALLED TO DARI FULTON at 1545 CUT-OFF POINTS HAVE BEEN ESTABLISHED BASED ON THE FOURTH UNIVERSAL DEFINITION OF MYOCARDIAL INFARCTION. THE UPPER REFERENCE LIMIT (URL) OF TROPONIN, DEFINED THE 99TH PERCENTILE OF cTnI DISTRIBUTION IN A REFERENCE POPULATION, HAS BEEN CONFIRMED THE DECISION THRESHOLD FOR [place] DIAGNOSIS. 99TH PERCENTILE = 51.4 PG/ML NOTE: HIGH-SENSITIVITY TROPONIN ASSAY IS NOT INTENDED TO BE USED IN ISOLATION BUT SHOULD BE INTERPRETED IN CONJUNCTION WITH OTHER DIAGNOSTIC AND CLINICAL INFORMATION. Performing Lab:see noteML - [facility] LBECG 12 lead Reviewed date:05/21/2024 03:21:37 PM Interpretation: Performing Lab: Notes/Report: Source Facility: [facility]-[address] [place] [address] [place] [address] Electrocardiograph Report Signed Patient: SHAHLA ARIAS MR#: [id number] : 1980 Acct:[id number] Age/Sex: 44 / F ADM Date: 05/21/24 Loc: ER Attending Dr: Ordering Physician: Blossom Parra Date of Service: 05/21/24 Procedure(s): ECG 12 lead Accession Number(s): [id number] cc: [facility] Test Date: 2024-05-21 Pat Name: SHAHLA ARIAS Department: Room: - Gender: Female Specialty Molder: : 1980 Requested By: [id number] Order Number: [id number] Reading MD: MARIVEL FAN Measurements Intervals [place] Rate: 87 P: 65 NJ: 134 QRS: 29 QRSD: 98 T: 208 QT: 334 QTc: 379 Interpretive Statements 1100 Sinus rhythm 5234 Left ventricular hypertrophy with repolarization abnormality ST T wave abnormalities secondary to LEFT VENTRICULAR HYPERTROPHY vs ischemia 9150 abnormal ECG Compared to ECG 02/13/2024 05:18:46 Early repolarization now present Myocardial infarct finding no longer present Electronically Signed On 05-21-2024 14:58:14 EDT by MARIVEL FAN Dictated By: Marivel Fan M.D. Signed By: 05/21/24 1458 DD/ 1403 TD/TT: Housekeeper Nanny:MADELIN abdomen 1V Reviewed date:11/12/2024 04:31:45 PM Interpretation: Performing Lab: Notes/Report: Source Facility: [place] [address] [place] [address] XRay Report Signed Patient: SHAHLA ARIAS MR#: [id number] : 1980 Acct:[id number] Age/Sex: 44 / F ADM Date: 11/12/24 Loc: ER Attending Dr: Ordering Physician: Omaira Pierson Date of Service: 11/12/24 Procedure(s): XR abdomen 1V Accession Number(s): [id number] cc: JOSETTE MANDEL ; Omaira Pierson [place] [address] Patient Name: SHAHLA ARIAS MRN: [id number] date: 1980 Sex: F Assigned Patient Location: ER Current Patient Location: Accession/Order Number: [id number] Exam Date: 11/12/2024 13:40 Report Date: 11/12/2024 14:22 At the request of: OMAIRA CHAPIN Procedure: XR abdomen 1V KUB: CLINICAL INFORMATION: Constipation. COMPARISON: None FINDINGS: Moderate stool burden without obstruction. Osseous structures demonstrate degenerative change. No free air. XR/XR abdomen 1V IMPRESSION: EVIDENCE OF CONSTIPATION. NO ACUTE PROCESS. Impression dictated by: Scott Callejas Jr., D.O. 11/12/2024 2:22 PM Dictation Location: [place] [address] Electronically authenticated by: [id number] Y Date: 11/12/2024 14:22 Dictated By: Scott Callejas M.D. Signed By: 11/12/24 1425 DD/ 142 TD/TT: Housekeeper Nanny:ALDAIR Gleason* Reviewed date:05/21/2024 02:50:55 PM Interpretation: Performing Lab: Notes/Report: [facility] ,HCG QualitativePOSITIVENEGATIVEPerforming Lab:see note - [facility] LBTroponin I High Sensitivity Reviewed date:05/21/2024 03:21:37 PM Interpretation: Performing Lab: Notes/Report: [facility] ,Troponin I High Aoeblauojqk957.64.0-51.3 pg/mL RESULTS CALLED TO DR. CESAR PARRA at 1455 CUT-OFF POINTS HAVE BEEN ESTABLISHED BASED ON THE FOURTH UNIVERSAL DEFINITION OF MYOCARDIAL INFARCTION. THE UPPER REFERENCE LIMIT (URL) OF TROPONIN, DEFINED THE 99TH PERCENTILE OF cTnI DISTRIBUTION IN A REFERENCE POPULATION, HAS BEEN CONFIRMED THE DECISION THRESHOLD FOR [place] DIAGNOSIS. 99TH PERCENTILE = 51.4 PG/ML NOTE: HIGH-SENSITIVITY TROPONIN ASSAY IS NOT INTENDED TO BE USED IN ISOLATION BUT SHOULD BE INTERPRETED IN CONJUNCTION WITH OTHER DIAGNOSTIC AND CLINICAL INFORMATION. Performing Lab:see note - [facility] LBType and Screen Reviewed date:05/22/2024 12:03:23 PM Interpretation: Performing Lab: Notes/Report: [facility] ,Blood TypeB PositiveAntibody ScreenNEGATIVEURINE MICROSCOPIC ONLY Reviewed date:05/21/2024 02:46:29 PM Interpretation: Performing Lab: Notes/Report: [facility] ,WBC Urine2-5NONE SEEN #/HPFRBC UrineNONE SEEN0-2 #/HPFBacteria UrineTRACENONE SEEN #/HPFMucus UrineNONE SEENNONE SEENSquamous Epithelial Cell UrineMANY NONE/RARE #/LPFCrystals Seen?None SeenNone Seen #/HPFCast Seen?NONE SEENNONE SEEN #/LPFUrine Culture IndicatedNOPerforming Lab:see noteML - [facility] LBUA (CLEAN or CATCH) FISH PITCHER or MICRO IF IND. Reviewed date:05/21/2024 02:46:29 PM Interpretation: Performing Lab: Notes/Report: [facility] ,Color UrineYELLOWYELLOWClarity UrineSL CLOUDYCLEARSpecific Kincaid Urine1.015 1.005-1.025pH Urine5.55.0-9.0Protein UrineTRACENEG/TRACE mg/dLGlucose Urine UA NEGATIVENEGATIVE mg/dLBilirubin UrineNEGATIVENEGATIVEKetones UrineTRACENEGATIVE mg/dLBlood UrineNEGATIVENEGATIVENitrite UrineNEGATIVENEGATIVEUrobilinogen Urine 1.00.2-1.0 EU/dLLeukocyte Esterase UrineSMALLNEGATIVEUrine Microscopic Indicated YESPerforming Lab:see noteML - [facility] LBPROF 14(COMP METB) Reviewed date:05/21/2024 02:50:55 PM Interpretation: Performing Lab: Notes/Report: [facility] ,Ehnmwn347913-886 mmol/LPotassium3.53.5-5.1 mmol/AOxeyqlhb0775-279 mmol/LCarbon Kviaeee90.121.0-32.0 mmol/LAnion Gap16.9Taorrpr88627-080 mg/dLBlood Urea Giwmplww01.07.0-18.0 mg/dLCreatinine2.240.55-1.02 mg/dLEstimated GFR ( Yocdmcy86>=60 mL/min/1.73m 2Estimated GFR (Non- Ame24>=60 mL/min/1.73m 2 BUN Creatinine Ratio12.8Frujpou2.08.5-10.1 mg/dLBilirubin Total1.00.2-1.0 mg/dL Aspartate Amino Ygxpaqlpidw2458-98 U/LAlanine Jrhbgwghuhdrijcg4159-53 U/L Alkaline Mazdolpusvf5698-144 U/LTotal Protein7.46.4-8.2 g/dLAlbumin Level3.53.4- 5.0 g/dLGlobulin3.9Albumin Globulin Ratio0.9Performing Lab:see noteML - [facility] LBPREG QUANT HCG Reviewed date:05/21/2024 03:54:22 PM Interpretation: Performing Lab: Notes/Report: [facility] ,HCG Quantitative7 5-50 0.2-1 WEEK 50-500 1-2 WEEKS 100-5,000 2-3 WEEKS 500-10,000 3-4 WEEKS 1,000-50,000 4-5 WEEKS 10,000-100,000 5-6 WEEKS 15,000-200,000 6-8 WEEKS 10,000-100,000 2-3 MONTHS Performing Lab:see noteML - [facility] LBLIPASE Reviewed date:05/21/2024 03:21:37 PM Interpretation: Performing Lab: Notes/Report: [facility] ,Kgrlzm51.016.0-77.0 U/LPerforming Lab:see noteML - [facility] LBCBC AUTO DIFF Reviewed date:05/21/2024 02:46:29 PM Interpretation: Performing Lab: Notes/Report: [facility] ,White Blood Count8.04.0-11.0 10 3/uLRed Blood Count4.424.20-5.40 10 6/uL Pjvujlqggu58.212.0-16.0 g/wBYpqhzxwqwq01.236.0-48.0 %Mean Corpuscular Rapzba88.7 81.0-99.0 fLMean Corpuscular Ofauxdikri60.926.7-34.0 pgMean Corpuscular HGB Conc 33.729.9-35.2 g/dLRed Cell Distribution Width14.311.0-15.0 %Platelet Ondzf867 150-450 10 3/uLMean Platelet Nrklxl58.39.5-13.5 fLNeutrophils Percent Auto70.2 43.0-75.0 %Lymphocytes Percent Auto18.220.5-60.0 %Monocytes Percent Auto9.21.7- 12.0 %Eosinophils Percent Auto1.50.9-7.0 %Basophils Percent Auto0.60.2-2.0 % Immature Granulocytes Pct Auto0.30.0-0.5 %Neutrophils Absolute Auto5.61.4-6.5 10 3/uLLymphocytes Absolute Auto1.51.2-3.8 10 3/uLMonocytes Absolute Auto0.70.3-0.8 10 3/uLEosinophils Absolute Auto0.10.0-0.7 10 3/uLBasophils Absolute Auto0.10.0- 0.1 10 3/uLImmature Granulocytes Abs Auto0.020.00-0.03 10 3/uLPerforming Lab:see noteML - [facility] LBTroponin I High Sensitivity Reviewed date:02/14/2024 01:04:38 PM Interpretation: Performing Lab: Notes/Report: [facility] ,Troponin I High Ixarannedec29.74.0-51.3 pg/mL CUT-OFF POINTS HAVE BEEN ESTABLISHED BASED ON THE FOURTH UNIVERSAL DEFINITION OF MYOCARDIAL INFARCTION. THE UPPER REFERENCE LIMIT (URL) OF TROPONIN, DEFINED THE 99TH PERCENTILE OF cTnI DISTRIBUTION IN A REFERENCE POPULATION, HAS BEEN CONFIRMED THE DECISION THRESHOLD FOR [place] DIAGNOSIS. 99TH PERCENTILE = 51.4 PG/ML NOTE: HIGH-SENSITIVITY TROPONIN ASSAY IS NOT INTENDED TO BE USED IN ISOLATION BUT SHOULD BE INTERPRETED IN CONJUNCTION WITH OTHER DIAGNOSTIC AND CLINICAL INFORMATION. Performing Lab:see noteML - [facility] LBPROF CHEM 8 (BAS METB) Reviewed date:02/14/2024 01:04:38 PM Interpretation: Performing Lab: Notes/Report: [facility] ,Rkpvcr887987-182 mmol/LPotassium4.53.5-5.1 mmol/FEliksuot44097-096 mmol/LCarbon Fcxskbh48.021.0-32.0 mmol/LAnion Gap11.6Dmbprhu80687-432 mg/dLBlood Urea Srvfdkzx14.07.0-18.0 mg/dLCreatinine1.080.55-1.02 mg/dLEstimated GFR ( Kaylan>60>=60 mL/min/1.73m 2Estimated GFR (Non- Ame55>=60 mL/min/1.73m 2 BUN Creatinine Ratio13.1Jtdpqfm0.48.5-10.1 mg/dLPerforming Lab:see noteML - [facility] LBCBC AUTO DIFF Reviewed date:02/14/2024 01:04:38 PM Interpretation: Performing Lab: Notes/Report: [facility] ,White Blood Count4.84.0-11.0 10 3/uLRed Blood Count3.414.20-5.40 10 6/uL Hemoglobin9.812.0-16.0 g/oXNphlywnoly47.236.0-48.0 %Mean Corpuscular Bojunp85.5 81.0-99.0 fLMean Corpuscular Ywfzmithld77.726.7-34.0 pgMean Corpuscular HGB Conc 31.429.9-35.2 g/dLRed Cell Distribution Width14.711.0-15.0 %Platelet Hdpii332 150-450 10 3/uLMean Platelet Jkpgip35.09.5-13.5 fLNeutrophils Percent Auto68.6 43.0-75.0 %Lymphocytes Percent Auto22.720.5-60.0 %Monocytes Percent Auto7.11.7- 12.0 %Eosinophils Percent Auto0.20.9-7.0 %Basophils Percent Auto1.00.2-2.0 % Immature Granulocytes Pct Auto0.40.0-0.5 %Neutrophils Absolute Auto3.31.4-6.5 10 3/uLLymphocytes Absolute Auto1.11.2-3.8 10 3/uLMonocytes Absolute Auto0.30.3-0.8 10 3/uLEosinophils Absolute Auto0.00.0-0.7 10 3/uLBasophils Absolute Auto0.10.0- 0.1 10 3/uLImmature Granulocytes Abs Auto0.020.00-0.03 10 3/uLPerforming Lab:see noteML - [facility] LBGram Stain Evaluation Reviewed date:02/22/2024 03:12:00 PM Interpretation: Performing Lab: Notes/Report: [facility] ,Gram Stain EvaluationSee Below For Report Gram Stain Evaluation This specimen is of good quality and is acceptable for routine Gram Stain Evaluationbacterial culture. Gram Stain Evaluation This specimen is of good quality and is acceptable for routine Performing Lab:see noteLC - [facility] LBCA echo limited Reviewed date:02/13/2024 08:30:42 PM Interpretation: Performing Lab: Notes/Report: Source Facility: [place] [address] [place] [address] Cardiology Report Signed Patient: SHAHLA ARIAS MR#: [id number] : 1980 Acct:[id number] Age/Sex: 44 / F ADM Date: 02/12/24 Loc: [place] 218-[address]: Pat Mendez M.D. Ordering Physician: Pat Mendez M.D. Date of Service: 02/13/24 Procedure(s): CA echo limited Accession Number(s): [id number] cc: JOSETTE MANDEL ; Pat Mendez M.D. Patient Name: SHAHLA ARIAS MR#: [id number] : 1980 Exam Date: 02/13/2024 Ordering Doctor: [...] CLARK Signed By: 02/13/241929 DD/ 27 TD/TT: Housekeeper Nanny:Lower Respiratory Culture Reviewed date:02/22/2024 03:12:00 PM Interpretation: Performing Lab: Notes/Report: [facility] ,Lower Respiratory CultureSee Below For Report Lower Respiratory Culture Lower Respiratory CultureRoutine respiratory carmelina Lower Respiratory Culture Lower Respiratory Culture Lower Respiratory Culture Lower Respiratory Culture* This is a corrected result. * Lower Respiratory Culture Lower Respiratory Culture Lower Respiratory Culture Lower Respiratory CultureA prior result that was reported as final has been changed. Lower Respiratory Culture Performing Lab:see note LC - [facility] LB SEE REPORT - Regulatory Manager Id information not found for OBX-specific music producer legend Gram Stain Evaluation Reviewed date:02/16/2024 01:13:11 PM Interpretation: Performing Lab: Notes/Report: [facility] ,Gram Stain EvaluationSee Below For Report Gram Stain Evaluation This specimen is of good quality and is acceptable for routine Gram Stain Evaluationbacterial culture. Gram Stain Evaluation This specimen is of good quality and is acceptable for routine Performing Lab:see noteLC - [facility] LBResult 4 Reviewed date:02/22/2024 03:12:00 PM Interpretation: Performing Lab: Notes/Report: [facility] ,Result 4See Below For Report Result 4 FIELD SPECIALIST Performing Lab:see noteLC - [facility] LBResult 3 Reviewed date:02/22/2024 03:12:00 PM Interpretation: Performing Lab: Notes/Report: [facility] ,Result 3See Below For Report Result 3 FIELD SPECIALIST Performing Lab:see noteLC - [facility] LBResult 2 Reviewed date:02/22/2024 03:12:00 PM Interpretation: Performing Lab: Notes/Report: [facility] ,Result 2See Below For Report Result 2 FIELD SPECIALIST Performing Lab:see noteLC - [facility] LBResult 1 Reviewed date:02/22/2024 03:12:00 PM Interpretation: Performing Lab: Notes/Report: [facility] ,Result 1See Below For Report Result 1 TNP Result 1Test not performed Result 1 TNP Performing Lab:see note LC - [facility] LB SEE REPORT - Regulatory Manager Id information not found for OBX-specific music producer legend Epithelial Cells Reviewed date:02/22/2024 03:12:00 PM Interpretation: Performing Lab: Notes/Report: [facility] ,Epithelial CellsSee Below For Report Epithelial Cells None seen Performing Lab:see noteLC - [facility] LBWhite Blood Cells Reviewed date:02/22/2024 03:12:00 PM Interpretation: Performing Lab: Notes/Report: [facility] ,White Blood CellsSee Below For Report White Blood Cells White Blood CellsNone seen White Blood Cells Performing Lab:see noteLC - [facility] LBBNP Reviewed date:02/13/2024 11:41:33 AM Interpretation: Performing Lab: Notes/Report: [facility] ,NT Pro B Type Natriuretic Vlor749.0<=450.0 pg/mLPerforming Lab:see noteML - [facility] LBECG 12 lead Reviewed date:02/15/2024 09:51:53 AM Interpretation: Performing Lab: Notes/Report: Source Facility: [facility]-[address] [place] [address] [place] [address] Electrocardiograph Report Signed Patient: SHAHLA ARIAS MR#: [id number] : 1980 Acct:[id number] Age/Sex: 44 / F ADM Date: 02/12/24 Loc: [place] 218- Attending Dr: Pat Mendez M.D. Ordering Physician: Amanda Cornell NP Date of Service: 02/13/24 Procedure(s): ECG 12 lead Accession Number(s): [id number] cc: [facility] Test Date: 2024-02-13 Pat Name: SHAHLA ARIAS Department: Room: [facility] Gender: Female Specialty Molder: : 1980 Requested By: JOSETTE MANDEL Order Number: [id number] Reading MD: PAT MENDEZ Measurements Intervals [place] Rate: 77 P: 60 [place]: 136 QRS: 17 QRSD: 118 T: 193 [...] M.D. Signed By: 02/15/24800 DD/ 7 TD/TT: Housekeeper Nanny:Troponin I High Sensitivity Reviewed date:02/13/2024 11:41:33 AM Interpretation: Performing Lab: Notes/Report: [facility] ,Troponin I High Grdzszrrhmr42.34.0-51.3 pg/mL RESULTS CALLED TO NEREIDA CHONG RN CUT-OFF POINTS HAVE BEEN ESTABLISHED BASED ON THE FOURTH UNIVERSAL DEFINITION OF MYOCARDIAL INFARCTION. THE UPPER REFERENCE LIMIT (URL) OF TROPONIN, DEFINED THE 99TH PERCENTILE OF cTnI DISTRIBUTION IN A REFERENCE POPULATION, HAS BEEN CONFIRMED THE DECISION THRESHOLD FOR [place] DIAGNOSIS. 99TH PERCENTILE = 51.4 PG/ML NOTE: HIGH-SENSITIVITY TROPONIN ASSAY IS NOT INTENDED TO BE USED IN ISOLATION BUT SHOULD BE INTERPRETED IN CONJUNCTION WITH OTHER DIAGNOSTIC AND CLINICAL INFORMATION. Performing Lab:see noteML - [facility] LBPROF 14(COMP METB) Reviewed date:02/13/2024 11:41:33 AM Interpretation: Performing Lab: Notes/Report: [facility] ,Pwlarv030052-972 mmol/LPotassium4.13.5-5.1 mmol/ZCmkigbln06045-518 mmol/LCarbon Lmakbbz22.021.0-32.0 mmol/LAnion Gap12.7Ywfgtcy53016-567 mg/dLBlood Urea Wajkbopx97.07.0-18.0 mg/dLCreatinine1.500.55-1.02 mg/dLEstimated GFR ( Kctkpww07>=60 mL/min/1.73m 2Estimated GFR (Non- Ame37>=60 mL/min/1.73m 2 BUN Creatinine Ratio16.9Pgalhxc9.48.5-10.1 mg/dLBilirubin Total0.30.2-1.0 mg/dL Aspartate Amino Xgpcpeqqvke6290-36 U/LAlanine Bxldrcnnvqnwjrjv8711-33 U/L Alkaline Vamjtkezcqg0448-168 U/LTotal Protein6.26.4-8.2 g/dLAlbumin Level2.43.4- 5.0 g/dLGlobulin3.8Albumin Globulin Ratio0.6Performing Lab:see noteML - [facility] LBMAGNESIUM Reviewed date:02/13/2024 11:41:33 AM Interpretation: Performing Lab: Notes/Report: [facility] ,Magnesium2.31.8-2.4 mg/dLPerforming Lab:see noteML - [facility] LB LIPID PROFILE Reviewed date:02/13/2024 11:41:33 AM Interpretation: Performing Lab: Notes/Report: [facility] ,Ecpvgafzxkmty78<=150 mg/hUBxhatzdumhe403<=200 mg/dLHDL Zggmopmopzh8287-48 mg/dL > or =60 mg/dl - LOW CARDIOVASCULAR RISK <40 mg/dl - HIGH CARDIOVASCULAR RISK LDL Cholesterol Wqytwhtdfr64.0 <100 mg/dl OPTIMAL 100-129 mg/dl NEAR OR ABOVE OPTIMAL 130-159 mg/dl BORDERLINE HIGH 160-189 mg/dl HIGH >190 mg/dl VERY HIGH VLDL DVIDYXNKSDS63.0Chol HDL Ratio3.5 3.3 - 4.4 LOW RISK 4.4 - 7.1 AVERAGE RISK 7.1 - 11.0 MODERATE RISK >11.0 HIGH RISK Performing Lab:see noteML - [facility] LBGLYCOHEMOGLOBIN A1C Reviewed date:02/13/2024 11:41:33 AM Interpretation: Performing Lab: Notes/Report: [facility] ,Glycohemoglobin A1C6.04.5-6.2 % ADA RECOMMENDED LIMIT 4.0 - 6.0 ADA THERAPEUTIC TARGET < 7.0 ACTION SUGGESTED > 7.0 Estimated Average [id number] Lab:see noteML - [facility] LB CBC AUTO DIFF Reviewed date:02/13/2024 11:41:33 AM Interpretation: Performing Lab: Notes/Report: [facility] ,White Blood Count6.04.0-11.0 10 3/uLRed Blood Count3.454.20-5.40 10 6/uL Tqsrwvcomc31.012.0-16.0 g/aXUkntojlcsm34.336.0-48.0 %Mean Corpuscular Qbqpug25.7 81.0-99.0 fLMean Corpuscular Qdzdfqnstp45.026.7-34.0 pgMean Corpuscular HGB Conc 31.929.9-35.2 g/dLRed Cell Distribution Width14.611.0-15.0 %Platelet Sgsuj977 150-450 10 3/uLMean Platelet Volume9.89.5-13.5 fLNeutrophils Percent Auto69.2 43.0-75.0 %Lymphocytes Percent Auto21.620.5-60.0 %Monocytes Percent Auto8.01.7- 12.0 %Eosinophils Percent Auto0.20.9-7.0 %Basophils Percent Auto0.70.2-2.0 % Immature Granulocytes Pct Auto0.30.0-0.5 %Neutrophils Absolute Auto4.11.4-6.5 10 3/uLLymphocytes Absolute Auto1.31.2-3.8 10 3/uLMonocytes Absolute Auto0.50.3-0.8 10 3/uLEosinophils Absolute Auto0.00.0-0.7 10 3/uLBasophils Absolute Auto0.00.0- 0.1 10 3/uLImmature Granulocytes Abs Auto0.020.00-0.03 10 3/uLPerforming Lab:see noteML - [facility] LBUA RANDOM Reviewed date:09/16/2024 10:14:00 AM Interpretation: Performing Lab: Notes/Report: [facility] ,Color UrineYELLOWYELLOWClarity UrineCLEARCLEARSpecific Kincaid Urine1.025 1.005-1.025pH Urine6.05.0-9.0Protein UrineNEGATIVENEG/TRACE mg/dLGlucose Urine UANEGATIVENEGATIVE mg/dLBilirubin UrineNEGATIVENEGATIVEKetones UrineNEGATIVE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 e PFT Complete 09/19/2024 N/A Encounters Encounter Location Date Provider Diagnosis [facility] [address] [place] [address] 09/19/2024 Josette Mandel COPD (chronic obstructive pulmonary disease) J44.9 [facility] [address] [place] [address] 12/11/2024 Josette Mandel Anxiety and depressi on F41.9 and Wellness examination Z00.00 [facility] [address] [place] [facility] [place] [address] 02/20/2024 Josette Mandel Pneumonia J18.9 ; Acute kidney injury N17.9 ; Anemia D64.9 and HTN (hypertension) I10 [facility] [address] [place] [facility] [place] [address] 06/11/2024 Josette Mandel Palpitations R00.2 [facility] [address] [place] [facility] [place] [place] [address] 06/19/2024 Josette Mandel SHARI (obstructive sle ep apnea) G47.33 and PAD (peripheral artery disease) I73.9 [facility] [address] [place] [facility] [place] [address] 07/03/2024 Noble Concepcionvito Acute bronchitis, unspecified organism J20.9 [facility] [address] [place] [facility] [place] [address] 08/08/2024 Josette Mandel HTN (hypertension) I 10 and Smoker F17.200 [facility] [address] [place] [facility] [place] [address] 02/13/2024 Noble Concepciony [facility] [place] [facility] [place] [address] 02/18/2024[facility] [facility] [place] [address]/05/2024Pa[facility] [place] [address]/[facility] [address] [place] [address]/[facility] [facility] [place] [address]/[facility] [facility] [place] [address]/[facility] [place] [facility] [place] [address]/[facility] [place] [facility] [place] [address]/Laveronika [facility] [place] [address] 09/02/2024Laveronika [facility] [place] [facility] [place] [address]/[facility] [address] [place] [address]/Josette Steele (hypertension) [facility]96[facility] [place] [address]/03/2024Laveronika [facility] examination Z00.00[place] [address] [place] [address]/[facility] [address] [place], [place] [address]/10/2024[facility] [place] [address]/[facility] Assessments Encounter Date Diagnosis (ICD Code) Assessment Notes Treatment Notes Treatment Clinical Notes Section Notes 02/20/2024 Pneumonia (ICD-10 - J18.9) feeling better finish out cefdinir fu as needed 02/20/2024cute kidney injury (ICD-10 - N17.9)repeat labs06/11/2024Palpitations (ICD-10 - R00.2)fu today cardiology as zzcljdt5912/11/2024nxiety and depression (ICD-10 - F41.9) following with psych going to try some new therapy with magnets 12/11/2024Wellness examination (ICD-10 - Z00.00) ROS done exam done encouraged mammogram and pap 06/19/2024OSA (obstructive sleep apnea) (ICD-10 - G47.33) needs to revisit wearing CPAP pt had hard time tolerating in past cardiology requesting referral sent 5COPD (chronic obstructive pulmonary disease) (ICD-10 - J44.9) 11/28/2024HTN (hypertension) (ICD-10 - I10)12/04/2024Wellness examination (ICD- 10 - Z00.00)5Acute bronchitis, unspecified organism (ICD-10 - J20.9) Rest and drink more liquids, especially water. You may use a humidifier or vaporizer to help keep the drainage moist. Fpze-igv-zyluumd Nasal Saline may help the stuffy and runny nose. Use Ibuprofen and or Tylenol as needed for fever, chills, body aches or pain. Children 5 years old should not be given zmls-ebl-zyzklhe cough and cold medications such as guaifenesin and dextromethorphan. If you're over age 5, you may try lpgq-zho-fwgdxqi cold medications such as guaifenesin and dextromethorphan, or multi-symptom cold reliever such as Dayquil to help reduce the symptoms. Antibiotics have been pre scribed. You should take these until completed and follow the directions. Antibiotics can sometimescause upset stomach, and in rare cases, serious allergic reactions or serious gastrointestinal problems. If you start having severe abdominal pain, severe vomiting, or bloody diarrhea, you should be r eevaluated by your physician or urgent care immediately. Follow up with your Primary Care Provider or return to clinic if symptoms do not improve within 3-5 days. If you develop severe symptoms such as shortness of breath, repeated vomiting, coughing up blood, or chest pain you should go to the emergency room or call [phone] (hypertension) (ICD-10 - I10) decrease dose fu 1-2 weeks for BP check, BP has been running low 08/08/2024Smoker (ICD-10 - F17.200)06/19/2024PAD (peripheral artery disease) (ICD-10 - I73.9)4Anemia (ICD-10 - D64.9)repeat labs 3m02/20/2024HTN (hypertension) (ICD-10 - I10) BP this am at home 130 before meds continue monitor and record has fu cardiology in Mar, bring BP readings running lower 06/11/2024Other fu fall for wellness psych and cardiology Plan Of Treatment Pending Test Test Name Order Date CMP (COMPLETE METABOLIC PANEL) 4 CMP (COMPLETE METABOLIC PANEL) 4 HEMOGLOBIN A1C (GLYCO) 05/17/2023 HEMOGLOBIN A1C (GLYCO) 12/11/2024 HEMOGLOBIN A1C (GLYCO) 12/04/2024 IRON, TOTAL 12/04/2024 IRON, TOTAL 12/11/2024 IRON, TOTAL 05/17/2023 LIPID PANEL (CHOL/TRIG/HDL/LDL) 05/17/19 24 LIPID PANEL (CHOL/TRIG/HDL/LDL) 12/12/19 25 LIPID PANEL (CHOL/TRIG/HDL/LDL) 12/05/19 25 CBC WITH DIFF (EXP 01/2025) 05/17/2023 VITAMIN D, 25 LEVEL (TOTAL) 05/17/2023 VITAMIN D, 25 LEVEL (TOTAL) 12/04/2024 VITAMIN D, 25 LEVEL (TOTAL) 12/11/2024 CT Cervical Spine w/o contrast * 024 MRI Cervical Spine w/o contrast * 2023 MRI Cervical Spine w/o contrast * 2023 PFT Complete 09/19/2024 Insulin Level 12/04/2024 Insulin Level 12/11/2024 Insulin Level 05/17/2023 THYROID PANEL (T4/TSH/FREE T3) 4 THYROID PANEL (T4/TSH/FREE T3) 5 THYROID PANEL (T4/TSH/FREE T3) 4 THYROID PANEL (T4/TSH/FREE T3) 5 Holter Monitor - 3 days up to 14 days CMP (COMP MET PRESLEY) w/eGFR CKD-EPI 2024 CMP (COMP MET PRESLEY) w/eGFR CKD-EPI 2024 CBC WITH DIFF 12/11/2024 CBC WITH DIFF 12/04/2024 Next Appt Details Provider Name:Josette williamson, 06/11/2025 09:00:00 AM, [address] [facility] [place], [address], Insurance Providers Payer Name Payer Address Payer Phone Subscriber Number Group Number Insured Name Patient Relationship to Insured Coverage Start Date Coverage End Date [employer] [place] [employer] [address] [address] [place] [address] [id number] Sal Ariaself - patient is the insured Medical (General) History Medical History History ICD Code Raynauds disease I73.00 Tobacco abuse Z72.0 PAD (peripheral artery disease) I73.9 Alcohol abuse F10.10 Anemia D64.9 Anxiety F41.9 Depression F32.A GERD (gastroesophageal reflux disease) K 21.9 Hypertension I10 Irritable bowel K58.9 PVD (peripheral vascular disease) I73.9 Carpal tunnel syndrome G56.00 daixl-ulvclhhld-geqkb syndrome Surgical History Surgery Date(Month/Year) carpal tunnel gallbladdercyst removal in abd
--- OUTSIDE RECORDS SUMMARY | 2025-02-12 05:35 | XMS_ITS | Patient Health Record ---
Author Organization [facility] Address [address] [place] [id number] Care Team Providers Care Floodplain Manager Name Role Phone Maria Fernanda Pa Unavailable [phone] Reason For Referral No Information Plan Of Treatment No Information Insurance Providers Payer Name Payer Address Payer Phone Subscriber Number Group Number Insured Name Patient Relationship to Insured Coverage Start Date Coverage End Date zzDAnthem Dentaquest [facility] [address] [place] [address] [id number] Daisha Arias - patient is the [id number] 2023Medicaid [facility] after [address]them[address] [place], [place] [id number], JudySelf - patient is the [id number] 2023
--- OUTSIDE RECORDS SUMMARY | 2025-02-12 05:35 | XMS_ITS | Clinical Summary ---
Author Organization [facility] Address [address] [place] [address] Care Team Providers Care Heel Nail Rasper Name Role Phone Unallocated, [facility] Provider Primary Care Provi matthew Josette Mendoza MD Unavailable [phone] Social History Tobacco UseTypesPacks/DayYears UsedDateSmoking Tobacco: Never Assessed CommentsUnknownSex and Gender InformationValueDate RecordedSex Assigned at Not on fileLegal JaoPeypmv05/15/2023 6:47 PM EDTGender IdentityNot on fileSexual OrientationNot on file Plan of Treatment Health MaintenanceDue DateLast DoneCommentsCT Rcnhomdoawwm1978Colonoscopy 1978Colorectal Cancer Wjvfvdgxw1978FIT-DNA1978FIT1978 FOBT1978 6992Oxzdtrumvhewa1978Pap Smear1999Cervical Cancer Xxyjtexwg86/25/2008HPV/Tcodkm6101/29/20089229Pxvyhjacb10/25/2018COVID-19 Vaccine ( season)2024Influenza Vaccine (#1)2024Pneumococcal Vaccine: Pediatrics (0 to 5 Years) and At-Risk Patients (6 to 64 Years)Aged OutNo longer eligible based on patient's age to complete this topic Insurance * Guarantor: Laura Ruelas AAccount TypeRelation to PatientDate of BirthPhone Billing AddressPersonal/CgkgkfVnjy1980 [address] [place] [address] Care Teams Team MemberRelationshipSpecialtyStart DateEnd Date Unallocated, [facility] Provider, [address] [place] [address] PCP - GeneralFamily Medicine06/21/24 Josette Mendoza MD [address] [place] [address] Referring PhysicianFamily Medicine06/21/24
--- OUTSIDE RECORDS SUMMARY | 2025-02-12 05:35 | XMS_ITS | Clinical Summary ---
Author Organization [facility] Address [id number] [place] [address] Care Team Providers Care Store Receiving Clerk Name Role Phone Josette Mendoza APRN-BULK CLERK Primary Care Provider Allergies Active AllergyReactionsCriticalityNoted DateCommentsCiprofibrateFacial Swelling High10/12/20184421Apapmhmqmgyed68/29/2013MetronidazoleOther (See Comments)10/12/2018 Flu like s/s Penicillin GFacial CxooswngKrnr55/09/2019 Medications MedicationSigDispense QuantityRefillsLast FilledStart DateEnd DateStatus omeprazole (PriLOSEC) 40 mg capsule Take 1 capsule (40 mg total) by mouth in the morning.Active traZODone (DESYREL) 50 mg tablet Take 4 tablets (200 mg total) by mouth nightly.Active acetaminophen (TYLENOL) 500 mg tablet Take 1 tablet (500 mg total) by mouth every 6 (six) hours as needed for pain. 30 tablet 09/08/2020ctive levomilnacipran (FETZIMA) 80 mg capsule,extended release 24 hr Take 120 mg by mouth in the morning.Active gabapentin (NEURONTIN) 400 mg capsule Take 1 capsule (400 mg total) by mouth 3 (three) times a day.Active naltrexone (REVIA) 50 mg tablet Take 1 tablet (50 mg total) by mouth in the morning.05/29/2022ctive OLANZapine (ZyPREXA) 10 mg tablet Take 1 tablet (10 mg total) by mouth as needed.06/14/2022ctive olmesartan (BENICAR) 20 mg tablet Take 1 tablet (20 mg total) by mouth in the morning.05/19/2022ctive albuterol (PROVENTIL HFA;VENTOLIN HFA) 90 mcg/actuation inhaler Inhale 2 puffs every 6 (six) hours as needed for wheezing.Active ibuprofen (MOTRIN) 800 mg tablet Take 1 tablet (800 mg total) by mouth every 6 (six) hours as needed for pain. 30 tablet 07/20/2022ctive olmesartan-hydroCHLOROthiazide (BENICAR HCT) 20-12.5 mg per tablet take 1 tablet by mouth once daily Oral for 90 daysActive mirtazapine (REMERON) 7.5 mg tablet 1 tablet at bedtime Orally for 30 daysActive VivitroL 380 mg suspension,extended rel recon 1 injection Intramuscular once monthly for 30 daysActive aspirin 81 mg 1 tablet Orally Once a day 90 tablet ctive clopidogreL (PLAVIX) 75 mg tablet Take 1 tablet (75 mg total) by mouth in the morning. 30 tablet ctive atorvastatin (LIPITOR) 40 mg tablet Take 1 tablet (40 mg total) by mouth in the morning.06/26/2023ctive cholecalciferol, vitamin D3, 2,000 units tablet Take by mouth daily.06/06/2023ctive buPROPion XL (WELLBUTRIN XL) 150 mg 24 hr tablet Take 1 tablet (150 mg total) by mouth every morning.Active amitriptyline (ELAVIL) 50 mg tablet Take 1 tablet (50 mg total) by mouth nightly. 75 mg11/14/2023ctive FeroSuL 325 mg (65 mg iron) tablet Take 1 tablet (325 mg total) by mouth 3 (three) times a week.Active olmesartan-hydroCHLOROthiazide (BENICAR HCT) 20-12.5 mg per tablet Take 1 tablet by mouth in the morning.04/24/2023ctive clopidogreL (PLAVIX) 75 mg tablet Take 1 tablet (75 mg total) by mouth in the morning. 90 tablet tive aspirin 81 mg chewable tablet Chew 1 tablet (81 mg total) and swallow in the morning. 90 tablet tive atorvastatin (LIPITOR) 40 mg tablet Take 1 tablet (40 mg total) by mouth in the morning. 90 tablet tive clopidogreL (PLAVIX) 75 mg tablet TAKE 1 TABLET BY MOUTH EVERY MORNING 30 tablet 705Active Active Problems ProblemNoted DateDiagnosed DateSevere wqwswgbimkyx86/27/2024 Assessment & Plan (03/07/2024 10:16 AM EST): Continue aspirin Plavix statin. Smoking cessation. Continue walking. Assessment & Plan (08/31/2023 9:04 AM EDT): Aspirin Plavix and statin Supervised walking program Smoking cessation Follow-up and 3 months. Kozktqsspruj23/14/2024 Assessment & Plan (11/30/2023 9:01 AM EDT): Best medical therapy with aspirin and Plavix and statin. Supervised walking program. Smoking cessation. Blue toe syndrome of left lower yxszledtm77/14/2024 Assessment & Plan (03/07/2024 10:17 AM EST): Is significantly resolved with very mild residual discoloration of the left great toe.We will continue aspirin Plavix and statin Abnormal CT scan05/18/2023Hx of abnormal cervical Pap smear06/22/2022 Overview (06/22/2022): ASCUS / + other high risk hpv 10/23/2018 Irritable bowel syndrome with both constipation and yyerqoen67/19/2023History of biliary stent kbndfitny21/astroesophageal reflux disease without vwxgwgifhcv32bnormal stress test06/26/2020 Overview (06/26/2020): Added automatically from request for surgery [id number] Obesity (BMI 35.0-39.9 without comorbidity)1Abnormal EKG006/15/2020 Valpqsu6511/20/2018 Overview (01/01/2019): Stopped ativan Psychiatrist started her on trazadone . Helping Chronic zmomcnycqqxp81/20/2019 Overview (01/29/2019): MFM consult Growth Q 4 weeks Twice weekly NST and weekly JOSE MANUEL start at 32 weeks switch coreg to labetalol 200mg BID per consult Dr. Boo History of qtzjhlfysk78/20/2019Mild intermittent asthma without complication 10/23/2018Cigarette smoker motivated to quit10/23/2018 Overview (11/20/2018): quit Assessment & Plan (03/07/2024 10:16 AM EST): Counseled on smoking cessation for 3 minutes she is willing to quit Assessment & Plan (11/30/2023 9:01 AM EDT): Counseled on smoking cessation at length Assessment & Plan (08/31/2023 9:04 AM EDT): Counseled on smoking cessation at least 4 minutes. Immunizations ImmunizationAdministration DatesNext DueInfluenza, Injectable, quadrivalent (PF) 01/29/2019MMR05/15/2019(Deferred: Other - Immunity),05/14/2019(Deferred: Other) Tdap05/15/2019(Deferred: Other - Given in office this 03/12/2019), 03/22/20195789Mhciuexrm90/11/2020(Deferred: Other - Immunity),05/14/2019(Deferred: Other) Family History Medical HistoryRelationNameCommentsAlcohol abuseMaternal GrandfatherPneumonia Maternal GrandmotherCancerMotherlung, bladderHypertensionMotherStrokeMother Breast cancerNeg HxOvarian cancerNeg HxPancreatic cancerNeg HxProstate cancerNeg HxUterine cancerNeg HxRelationNameStatusCommentsFatherOtherfather unknown Maternal GrandfatherDeceasedMaternal GrandmotherDeceasedMotherAlivelung cancer bladder cancer nose cancerPaternal GrandfatherOtherPaternal GrandmotherOther Social History Tobacco UseTypesPacks/DayYears UsedDateSmoking Tobacco: Every GtpEndlacbnua045.9 Started: 1996Smokeless Tobacco: Never Tobacco Cessation:Ready to Q uit: Not Asked; Counseling Given: Not Answered Comments:using nicorette occasionally Alcohol UseStandard Drinks/WeekCommentsNot Currently0 (1 standard drink = 0.6 oz pure alcohol)former abuserSocial Connection and Isolation PanelAnswerDate RecordedIn a typical week, how many times do you talk on the phone with family, friends, or neighbors?Never05/31/2020How often do you get together with friends or relatives?Never05/31/2020How often do you attend tenriism or taoism services?Never1Do you belong to any clubs or organizations such as tenriism groups, unions, fraternal or athletic groups, or school groups?No 05/31/2020How often do you attend meetings of the clubs or organizations you belong to?Never05/31/2020re you , , , , never , or living with a partner?Eydvpzh7905/31/2020Overall Financial Resource Strain (CARDIA)AnswerDate RecordedHow hard is it for you to pay for the very basics like food, housing, medical care, and heating?Not hard at all05/31/2020 PHQ-2AnswerDate RecordedTotal Vzoza4512[facility] [place] of Occupational Health - Occupational Stress QuestionnaireAnswerDate RecordedDo you feel stress - tense, restless, nervous, or anxious, or unable to sleep at night because your mind is troubled all the time - these days?Not at all05/31/2020xercise Vital SignAnswerDate RecordedOn average, how many days per week do you engage in moderate to strenuous exercise (like a brisk walk)?0 days05/31/2020On average, how many minutes do you engage in exercise at this level?0 min05/31/2020RAPARE - TransportationAnswerDate RecordedIn the past 12 months, has lack of transportation kept you from medical appointments or from getting medications?No 05/31/2020In the past 12 months, has lack of transportation kept you from meetings, work, or from getting things needed for daily living?No05/31/2020 Lima Depression ScaleAnswerDate RecordedEdinburgh Depression Scale Qqxvi8023/15/2020The thought of harming myself has occurred to me.Never05/19/2019ChildcareAnswerDate RecordedDo problems getting exceptional children teacher assistant make it difficult for you to work or study?No05/31/2020mploymentAnswerDate RecordedDo you need help finding a local career center and/or a training program?No05/31/2020Hunger ScreeningAnswerDate RecordedWithin the past 12 months we worried whether our food would run out before we got money to buy more.Never True03/07/2024Within the past 12 months the food we bought just didn't last and we didn't have money to get more.Never True03/07/2024Purpose - LifeAnswerDate RecordedI have a purpose and direction in my life.Strongly Agree05/31/2020 CommentsNoSex and Gender InformationValueDate RecordedSex Assigned at BirthNot on fileLegal YcvFuvyew51/06/2015 12:03 PM EDTGender IdentityNot on file Sexual OrientationNot on file Last Filed Vital Signs Vital SignReadingTime TakenCommentsBlood Golbcbqb400/8803/07/2024 10:01 AM EST Rxvok998303/07/2024 10:01 AM LVZHpufdidlyxt36.1 ??C (97 ??F)03/07/2024 10:01 AM ESTRespiratory Ybht608803/07/2024 10:01 AM ESTOxygen Akpuogfjcv97%03/07/2024 10:01 AM ESTInhaled Oxygen Concentration--Kykvql839.1 kg (245 lb)03/07/2024 10:01 AM YTWRktiuy850 cm (5' 5.75 )03/07/2024 10:01 AM ESTBody Mass Index39.85003/07/2024 10:01 AM EST Plan of Treatment Health MaintenanceDue DateLast DoneCommentsStatin Use: Jxxlundipvndom1978 Eajkzgtgx88/dult BMI Follow Up Plan504/ Depression Lyhlzarrw50/, 05/19/2019Influenza Yuzgndq8111/04/2024 01/29/2019Tobacco Dsnarhxks06/dult BMI Zrpfwailv34/02/2026 03/07/2024Pap Smear604/, 06/22/2022, 08/29/2019, Additional history existsDTaP,Tdap and Td Vaccines (2 - Td or Tdap) Medical Devices Not on file Procedures Procedure NamePriorityDate/TimeAssociated DiagnosisCommentsMAMM SCREENING BILATERAL W TRORsmljzg86/21/2023 11:47 AM EDT Encounter for screening mammogram for breast cancer HIGH RISK HPV W/YKCDDqutswm57/19/2023 3:17 AM EDT Cervical smear, as part of routine gynecological examination from Last 3 Months or Most Recently Relevant to Health Maintenance Results * Mammography screening bilateral with CAD (06/24/2022 11:47 AM EDT)Anatomical RegionLateralityModalityBreastBilateralMammographySpecimen (Source)Anatomical Location / LateralityCollection Method / VolumeCollection TimeReceived Time 06/24/2022 11:49 AM EDT Narrative 06/24/2022 11:53 AM EDT History: Screening mammogram Technique: Digital mammographic images of both breasts were obtained in CC and MLO projections. ??Computer-aided detection was utilized. ??Tomosynthesis was also performed. Comparison: ??None Findings: Breast Density: There are scattered areas of fibroglandular density. There are small benign calcifications in the medial aspect of both breasts ??There is no evidence of dominant mass lesion, clustered microcalcifications, or skin thickening in either breast to suggest the presence of malignancy. Impression: Both breasts negative for evidence of malignancy by digital mammography. ??A screening mammogram in one year is recommended. ACR Category: ??BIRADS 2 - Benign. Finalized by Nicholas Roe [...] 11:53 AM 2 b MAMM 1 YR Authorizing ProviderResult TypeResult StatusMandie Rodriguez WEBSPHERE PORTAL DEVELOPER-CNPIMG MAMMOGRAPHY ORDERABLESFinal Result * High risk HPV w/rochelle (06/22/2022 3:17 AM EDT)ComponentValueRef RangeTest MethodAnalysis TimePerformed AtPathologist SignatureHpv specimen typeThinPrep 06/23/2022 3:18 AM [facility] 16NegativeNegative^Negative 06/23/2022 2:33 PM [facility] LABHpv 18Negative Negative^Ptqnwvmq43/20/2023 2:33 PM [facility] LABOther high risk hpvNegativeNegative^Nluzqpgl23/20/2023 2:33 PM [facility] LABComment: HPV types 31,33,35,39,45,52,56,58,59,66 and 68 DNA were undetectable. Specimen (Source)Anatomical Location / LateralityCollection Method / Volume Collection TimeReceived TwjqKJZYX29/19/2023 3:17 AM EDT06/23/2022 3:20 AM EDT Narrative Authorizing ProviderResult TypeResult Jeremy Rodriguez WEBSPHERE PORTAL DEVELOPER-CNPLAB BLOOD ORDERABLESFinal ResultPerforming OrganizationAddressCity/State/ZIP CodePhone Number [facility] [address], [place] [address] [facility] [address] [place] [address], [address] [place] [address] from Last 3 Months or Most Recently Relevant to Health Maintenance Insurance * Guarantor: Laura Arias AAccount TypeRelation to PatientDate of BirthPhone Billing AddressPersonal/QyuagoAwzf1980 [address] [place] [address] Advance Directives * Full Code (Latest Code Status on File) Date ActivatedDate InactivatedComments06/01/2020 7:50 AM06/01/2020 6:49 PM * Full Code Date ActivatedDate InactivatedComments05/23/2019 7:06 PM05/23/2019 10:15 PM * Full Code Date ActivatedDate InactivatedComments05/13/2019 6:25 AM05/15/2019 10:12 PM * Full Code Date ActivatedDate InactivatedComments05/02/2019 10:27 PM2 10:38 AM Care Teams Team MemberRelationshipSpecialtyStart DateEnd Date Josette Mnedoza, WEBSPHERE PORTAL DEVELOPER-BULK CLERK [address] [facility], [place] [id number] PCP - GeneralFamily Medicine08/25/23
[2025-02-12] MEDS: CLINDAMYCIN HCL 150 MG CAPSULE 300 MG PO (05:43)
== END 2025-02-12 05:52 | disposition home or self-care (01) ==
PROVIDERS: Emergency Provider Internal Medicine; PCP Nurse Practitioner Family
DX: K04.7 Periapical abscess without sinus (principal); K02.9 Dental caries, unspecified
CPT/HCPCS: 99283

== ENCOUNTER 2025-02-14 10:52 | Emergency (ER) | payer MEDICAID, SELFPAY ==
[2025-02-14 11:09] VITALS: BP 94/62; PULSE 75; TEMP 36.7; BMI 37.1
--- NOTE | 2025-02-14 11:15 | ED.GENADUL1 ---
HPI HPI - General Adult General Chief complaint: Dental/Oral Stated complaint: ORAL ABCESS Time Seen by Provider: 02/14/25 11:06 Source: patient Mode of arrival: walk-in History of Present Illness HPI narrative: 45-year-old female presented for toothache. She had some topical dental analgesia from here and she ran out. She is on clindamycin and has an appointment with her dentist in 7 days. The pain is moderate and continuous. Related Data Home Medications ?Medication ?Instructions ?Recorded ?Confirmed gabapentin 300 mg capsule 600 mg PO TID 05/09/23 02/14/25 olmesartan 20 1 tab PO DAILY 05/09/23 02/14/25 mg-hydrochlorothiazide 12.5 mg tablet omeprazole 40 mg capsule,delayed 40 mg PO .BIDAC 05/09/23 10/14/24 release albuterol sulfate 90 mcg/actuation 2 puff inhalation Q4H PRN 02/12/24 02/14/25 aerosol inhaler shortness of breath or wheezing cholecalciferol (vitamin D3) 50 50 mcg PO DAILY 02/12/24 02/14/25 mcg (2,000 unit) tablet lorazepam 1 mg tablet 1 mg PO TID PRN anxiety 02/12/24 02/14/25 olanzapine 5 mg tablet 5 mg PO BID PRN agitation 02/12/24 02/14/25 aspirin 81 mg tablet,delayed 81 mg PO DAILY 05/21/24 02/14/25 release levomilnacipran 20 mg capsule,24 20 mg PO DAILY 05/21/24 02/14/25 hr,extended release (Fetzima) metoprolol succinate 50 mg 50 mg PO DAILY 10/14/24 02/14/25 tablet,extended release 24 hr tiotropium bromide 18 mcg capsule inhalation 10/14/24 with inhalation device (Spiriva with HandiHaler) vilazodone 10 mg tablet mg 02/14/25 Previous Rx's ?Medication ?Instructions ?Recorded atorvastatin 40 mg tablet 40 mg PO DAILY #30 tabs 05/08/23 clopidogrel 75 mg tablet (Plavix) 75 mg PO DAILY #30 tabs 05/08/23 ibuprofen 800 mg tablet 800 mg PO Q8H PRN pain #20 tabs 02/14/25 Allergies Allergy/AdvReac Type Severity Reaction Status Date / Time ciprofloxacin (From Cipro) Allergy Severe Swelling Verified 02/14/25 11:05 of Lip/Tongue/Throat metronidazole (From Flagyl) Allergy Severe Swelling Verified 02/14/25 11:05 of Lip/Tongue/Throat Penicillins Allergy Severe Swelling Verified 02/14/25 11:05 of Lip/Tongue/Throat Opioid HPI Opioid Management Most Recent Opioid Data: Last Pain Scale 9 02/12/25, 05:00 Last ORT Total Score 3 05/21/24, 23:57 Last ORT Risk Category Low Risk 05/21/24, 23:57 Review of Systems ROS Narrative A ten point review of systems is negative except as noted above. [facility] Medical History COPD (chronic obstructive pulmonary disease) with acute bronchitis ?J44.0 - Chronic obstructive pulmonary disease with (acute) lower respiratory infection (ICD-10) ?J20.9 - Acute bronchitis, unspecified (ICD-10) Acute renal insufficiency ?N28.9 - Disorder of kidney and ureter, unspecified (ICD-10) Sleep apnea syndrome ?G47.30 - Sleep apnea, unspecified (ICD-10) Obesity ?E66.9 - Obesity, unspecified (ICD-10) Tobacco abuse ?Z72.0 - Tobacco use (ICD-10) Prediabetes ?R73.03 - Prediabetes (ICD-10) Hyperlipidemia ?E78.5 - Hyperlipidemia, unspecified (ICD-10) ?Z34.90 - Encounter for supervision of normal , unspecified, unspecified trimester (ICD-10) Abdominal pain ?R10.9 - Unspecified abdominal pain (ICD-10) Elevated troponin ?R79.89 - Other specified abnormal findings of blood chemistry (ICD-10) Demand ischemia ?I24.89 - Other forms of acute ischemic heart disease (ICD-10) IAM (acute kidney injury) ?N17.9 - Acute kidney failure, unspecified (ICD-10) Peripheral vascular disease ?I73.9 - Peripheral vascular disease, unspecified (ICD-10) Acute renal failure ?N17.9 - Acute kidney failure, unspecified (ICD-10) Pneumonia ?J18.9 - Pneumonia, unspecified organism (ICD-10) Acute kidney injury ?N17.9 - Acute kidney failure, unspecified (ICD-10) Acute hypotension ?I95.9 - Hypotension, unspecified (ICD-10) Schizo affective schizophrenia ?F25.9 - Schizoaffective disorder, unspecified (ICD-10) delivery delivered ?O82 - Encounter for delivery without indication (ICD-10) Cholecystectomy planned Bilateral carpal tunnel syndrome ?G56.03 - Carpal tunnel syndrome, bilateral upper limbs (ICD-10) Left adrenal mass ?E27.8 - Other specified disorders of adrenal gland (ICD-10) Raynauds disease ?I73.00 - Raynaud's syndrome without gangrene (ICD-10) Nicotine dependence ?F17.200 - Nicotine dependence, unspecified, uncomplicated (ICD-10) GERD without esophagitis ?K21.9 - Gastro-esophageal reflux disease without esophagitis (ICD-10) Irritable bowel syndrome (IBS) ?K58.9 - Irritable bowel syndrome, unspecified (ICD-10) Left ventricular hypertrophy ?I51.7 - Cardiomegaly (ICD-10) Asthma ?J45.909 - Unspecified asthma, uncomplicated (ICD-10) Vitamin D deficiency ?E55.9 - Vitamin D deficiency, unspecified (ICD-10) SHARI (obstructive sleep apnea) ?G47.33 - Obstructive sleep apnea (adult) (pediatric) (ICD-10) Anxiety disorder with panic attacks ?F41.9 - Anxiety disorder, unspecified (ICD-10) Depression ?F32.A - Depression, unspecified (ICD-10) Hypertension ?I10 - Essential (primary) hypertension (ICD-10) Surgical History H/O removal of cyst ?Z98.890 - Other specified postprocedural states (ICD-10) H/O cardiac catheterization ?Z98.890 - Other specified postprocedural states (ICD-10) H/O tubal ligation ?Z98.51 - Tubal ligation status (ICD-10) Family History Mother Family history of stroke Family history of cancer Social History Highest level of school completed/degree received: high school graduate Little interest or pleasure in doing things: not at all Feeling down, depressed, or hopeless: more than half the days Exam Narrative Exam Narrative: Nurses note and vital signs reviewed General:The patient appears well and in no apparent distress. Skin:Warm, dry, no pallor noted.There is no rash noted. Head:Normocephalic, atraumatic Eye: Normal conjunctiva, no drainage Ears, Nose, Mouth, and Throat: oral mucosa is moist. Nares patent. No facial swelling or erythema. No bleeding or pus in her mouth. No swelling to the floor of her mouth. Dental caries is noted in the right lower dentition Cardiovascular:Regular Rate and Rhythm Respiratory:Patient is in no distress, no accessory muscle use Back:non-tender GI: Soft and nontender Musculoskeletal: The patient has no evidence of calf tenderness, no pitting edema, symmetrical pulses noted bilaterally Neurological:A&O normal speech Psychiatric:Cooperative Constitutional Vital Signs, click to edit/add: Last Vital Signs Temp 98.0 F 02/14/25 11:09 Pulse 75 02/14/25 11:09 Resp 16 02/14/25 11:09 BP 94/62 02/14/25 11:09 Course Vital Signs Vital signs: Vital Signs Temperature 98.0 F 02/14/25 11:09 Pulse Rate 75 02/14/25 11:09 Respiratory Rate 16 02/14/25 11:09 Blood Pressure 94/62 02/14/25 11:09 Temperature 98.0 F 02/14/25 11:09 Pulse Rate 75 02/14/25 11:09 Respiratory Rate 16 02/14/25 11:09 Blood Pressure 94/62 02/14/25 11:09 Medical Decision Making [facility] Narrative Medical decision making narrative: She is provided dental analgesia and a prescription for ibuprofen. Follow-up with her dentist. She is already on clindamycin. Treatment diagnosis and follow-up were discussed with the patient. Differential Diagnosis Differential Diagnosis: Dental caries dental infection, gingivitis Discharge Plan Discharge Chief Complaint: Dental/Oral Clinical Impression: Dental infection Patient Disposition: Home, Self-Care Time of Disposition Decision: 11:14 Condition: Good Mode of Transportation: Private Vehicle Prescriptions / Home Meds: New ibuprofen 800 mg tablet 800 mg PO Q8H PRN (Reason: pain) Qty: 20 0RF No Action clopidogrel [Plavix] 75 mg tablet 75 mg PO DAILY Qty: 30 0RF atorvastatin 40 mg tablet 40 mg PO DAILY Qty: 30 0RF gabapentin 300 mg capsule 600 mg PO TID olmesartan-hydrochlorothiazide 20-12.5 mg tablet 1 tab PO DAILY omeprazole 40 mg capsule,delayed release(DR/EC) 40 mg PO .BIDAC albuterol sulfate 90 mcg/actuation HFA aerosol inhaler 2 puff INHALATION Q4H PRN (Reason: shortness of breath or wheezing) cholecalciferol (vitamin D3) 50 mcg (2,000 unit) tablet 50 mcg PO DAILY lorazepam 1 mg tablet 1 mg PO TID PRN (Reason: anxiety) olanzapine 5 mg tablet 5 mg PO BID PRN (Reason: agitation) metoprolol succinate 50 mg tablet extended release 24 hr 50 mg PO DAILY tiotropium bromide [Spiriva with HandiHaler] 18 mcg capsule, w/inhalation device INHALATION vilazodone 10 mg tablet aspirin 81 mg tablet,delayed release (DR/EC) 81 mg PO DAILY Fetzima 20 mg capsule,extended release 24 hr 20 mg PO DAILY Print Language: Kyrgyz Instructions: Toothache (ED) Referrals: MILLIE MANDEL [Primary Care Provider, Family Practice] - 1 week
== END 2025-02-14 11:44 | disposition home or self-care (01) ==
LOC: ER 11:23
PROVIDERS: Emergency Provider Emergency Medicine; PCP Nurse Practitioner Family
DX: K04.7 Periapical abscess without sinus (principal)
CPT/HCPCS: 99282